=== PATIENT | female | born 1945 | race Caucasian/White ===

== ENCOUNTER → 2016-12-01 | Outpatient (CLI) | payer MEDICARE ==
[~2016-12-01] MED LIST: ALPR.25T; ALPR0.254 PO; AMLO10TA PO; ARIP2TAB3 PO; ASPI-875 PO; ATOR10TA66 PO; BUTA-234; CYCL10TA9 PO; DARI15TA4; DULO60CA6 PO; FNT25TD TD; GABAPENTIN; HYDR-3720 PO; HYDR1TAB PO; HYDR25TA4 PO; LEVO100T PO; MTP50T; NEBI5TAB8 PO; NF-ESOM40C PO; NFNEB10T PO; OMEG1CAP51 PO; PROP1TAB77; SYNTHROID; TICA90TA PO; TRAZ-144 PO
--- NOTE | 2016-12-05 13:55 | Diagnostic Imaging Report ---
Bilateral screening mammogram. The current study was also evaluated with a Computer Aided Detection (CAD) system. INDICATION: Screening. No current complaints stated on the questionnaire. COMPARISON: 10/30/15 FINDINGS: The breasts are composed of scattered fibroglandular densities. There are occasional benign-appearing calcifications. Allowing for technique and positional differences, no suspicious change is seen. IMPRESSION: No significant change. ACR BI-RADS Category 2: Benign findings. Result letter will be mailed to the patient. Note: At least 10% of breast cancer is not imaged by mammography. Dictated by: Dictated on workstation # [id number]
== END ==
LOC: RAD 12:52
PROVIDERS: ATTEND Nurse Practitioner Family
DX: Z12.31 Encounter for screening mammogram for malignant neoplasm of breast (principal)
CPT/HCPCS: 77067

== ENCOUNTER → 2017-02-20 | Outpatient (CLI) | payer MEDICARE ==
[~2017-02-20] VITALS: Ht 154.9 cm; Wt 72.6 kg
[~2017-02-20] MED LIST changes: +NS IV 1000 ML 1,000 ML IV NR; +NS IV 1000 ML 1,000 ML ONE; +ONDANSETRON 4 MG/2 ML (SDV) Z0FRAN IV PRN; +ONDANSETRON 4 MG/2 ML (SDV) Z0FRAN ONE; +metroNIDAZOLE 500 MG/100 ML IVPB (PRE-MIX) IV NR; +metroNIDAZOLE 500MG/100ML IVPB 100 ML ONE
[2017-02-20 13:08] LABS: MEAN PLATELET VOLUME 11.2 FL (7.4-10.4); RED BLOOD COUNT 4.99 10^6/uL (4.35-5.85); RED CELL DISTRIBUTION WIDTH 13.1 % (10.0-14.5); WHITE BLOOD COUNT 6.9 10^3/uL (4.3-11.0)
[2017-02-20 13:25] LABS: ALANINE AMINOTRANSFERASE 70 U/L (0-55); ALBUMIN 3.9 GM/DL (3.2-4.5); ANION GAP 7 MMOL/L (5-14); ASPARTATE AMINO TRANSFERASE 57 U/L (5-34); BILIRUBIN,TOTAL 0.4 MG/DL (0.1-1.0); BLOOD UREA NITROGEN 22 MG/DL (7-18); BUN/CREATININE RATIO 29 (0-20); CALCIUM 9.6 MG/DL (8.5-10.1); CARBON DIOXIDE 27 MMOL/L (21-32); CHLORIDE 108 MMOL/L (98-107); CREATININE SERUM 0.77 MG/DL (0.60-1.30); GFR ESTIMATED > 60; GLUCOSE 85 MG/DL (70-105); HEMOLYSIS 11 (-100-29); ICTERUS 0.5 (-100-1.9); LIPEMIA 2 (-100-49); POTASSIUM 3.5 MMOL/L (3.6-5.0); SODIUM 142 MMOL/L (135-145); TOTAL PROTEIN 7.3 GM/DL (6.4-8.2)
[2017-02-20 13:37] VITALS: BP 135/87
[2017-02-20 15:13] VITALS: BP 135/87
== END ==
LOC: SDC 12:32
PROVIDERS: ATTEND Nurse Practitioner Family
DX: K57.92 Diverticulitis of intestine, part unspecified, without perforation or abscess without bleeding (principal)
CPT/HCPCS: 36415; 80053; 85027; 96360; 96365; 96374

== ENCOUNTER → 2017-06-16 | Outpatient (CLI) | payer MEDICARE ==
[~2017-06-16] MED LIST changes: -NS IV 1000 ML 1,000 ML IV NR; -NS IV 1000 ML 1,000 ML ONE; -ONDANSETRON 4 MG/2 ML (SDV) Z0FRAN IV PRN; -ONDANSETRON 4 MG/2 ML (SDV) Z0FRAN ONE; -metroNIDAZOLE 500 MG/100 ML IVPB (PRE-MIX) IV NR; -metroNIDAZOLE 500MG/100ML IVPB 100 ML ONE
[2017-06-16 09:35] LABS: ALANINE AMINOTRANSFERASE 31 U/L (0-55); ALBUMIN 3.7 GM/DL (3.2-4.5); ANION GAP 9 MMOL/L (5-14); ASPARTATE AMINO TRANSFERASE 31 U/L (5-34); BILIRUBIN,TOTAL 0.6 MG/DL (0.1-1.0); BLOOD UREA NITROGEN 19 MG/DL (7-18); BUN/CREATININE RATIO 23; CALCIUM 9.6 MG/DL (8.5-10.1); CARBON DIOXIDE 25 MMOL/L (21-32); CHLORIDE 108 MMOL/L (98-107); CREATININE SERUM 0.81 MG/DL (0.60-1.30); GFR ESTIMATED > 60; GLUCOSE 95 MG/DL (70-105); POTASSIUM 3.8 MMOL/L (3.6-5.0); SODIUM 142 MMOL/L (135-145); TOTAL PROTEIN 6.8 GM/DL (6.4-8.2)
== END ==
LOC: LAB 08:45
PROVIDERS: ATTEND Physician Assistant
DX: I65.29 Occlusion and stenosis of unspecified carotid artery (principal); I25.10 Atherosclerotic heart disease of native coronary artery without angina pectoris; I10 Essential (primary) hypertension; E78.2 Mixed hyperlipidemia
CPT/HCPCS: 36415; 80053

== ENCOUNTER → 2017-06-28 | Outpatient (CLI) | payer MEDICARE, OTHER ==
[~2017-06-28] MED LIST changes: +CATHETER FLUSH 10 ML SYR IV PRN; +REGADENOSON 0.4 MG/5 ML SYR (LEXISCAN) IV ONE
[2017-06-28 09:16] VITALS: BP 131/89
--- NOTE | 2017-06-29 13:52 | STRESS TEST ---
DATE OF SERVICE: 06/28/2017 LEXISCAN MYOVIEW STRESS TEST REPORT Baseline heart rate is 61. Baseline blood pressure is 130/89. Baseline EKG sinus rhythm with no ischemic changes. In summary, the patient received 10.76 mCi of technetium-99 Myoview and the resting images were obtained, then the patient received 0.4 mg of Lexiscan followed by 28.2 mCi of technetium-99 Myoview. Throughout the test, there were no EKG changes. The resting and stress images were reviewed and compared in the short axis, horizontal long axis, and vertical long axis views. Review of the images showed breast attenuation with typical female pattern. No significant ischemia or infarction on SPECT images. SSS is 0. TID value is 1.08. On the gated images, the left ventricle appeared to be normal size with normal contractility, calculated ejection fraction 66%. CONCLUSION: 1. The patient tolerated Lexiscan scan well. 2. Breast attenuation with typical female pattern. No significant ischemia or infarction on SPECT images. 3. Normal left ventricular size with normal contractility, calculated ejection fraction 66%. Job ID: [id number] DocumentID: [id number] Dictated Date: 06/28/2017 14:55:24 Analysis Intern Date: 06/28/2017 16:09:18 Dictated By: SANDEEP BAI MD
== END ==
LOC: CARD 07:33
PROVIDERS: ATTEND Physician Assistant
DX: I25.10 Atherosclerotic heart disease of native coronary artery without angina pectoris (principal); I10 Essential (primary) hypertension; E78.2 Mixed hyperlipidemia; Z82.49 Family history of ischemic heart disease and other diseases of the circulatory system
CPT/HCPCS: 78452; 93017

== ENCOUNTER → 2017-07-24 | Outpatient (CLI) | payer MEDICARE ==
[~2017-07-24] MED LIST changes: -CATHETER FLUSH 10 ML SYR IV PRN; -REGADENOSON 0.4 MG/5 ML SYR (LEXISCAN) IV ONE
--- NOTE | 2017-07-24 11:58 | Diagnostic Imaging Report ---
PROCEDURE: MR imaging cervical spine without contrast. TECHNIQUE: Multiplanar, multisequence MR imaging of the cervical spine was performed without contrast. INDICATION: Neck pain. FINDINGS: The alignment of the posterior spinal line is satisfactory. The vertebral body heights are preserved. There is a moderate disc height loss at C6-C7 level and mild disc height loss at C5-C6. There is disc desiccation at all levels. The foramen magnum and upper cervical canal are widely patent. The spinal cord is normal in caliber and in signal. There is no significant marrow signal abnormality. C2-C3: No disc herniation or spinal canal stenosis. There is facet hypertrophy more prominent on the left side with associated mild left foraminal stenosis. The right foramen is patent. C3-C4: There is a spur-disc complex asymmetric to the right side with no significant spinal canal stenosis. The foramina demonstrate bilateral stenosis lnlobqqe-fi-qykgyf on the right and moderate on the left. C4-C5: There is a mild spur-disc complex with no spinal canal stenosis. Prominent facet hypertrophy on the left side is seen with mild foraminal stenosis on the left. No foraminal stenosis on the right side. C5-C6: There is moderate spinal canal stenosis reducing the AP dimension of the central canal to 7.5 mm. No cord compression. The foramina demonstrate bilateral stenosis zppgloqp-an-iicbio on the right side and moderate on the left. C6-C7: There is a disc-spur complex and prominent posterior ligamentous hypertrophy. This is associated with moderate spinal canal stenosis reducing the AP dimension of the canal to 7.5 mm without significant cord compression. The foramina demonstrate bilateral kwniguel-ic-ymcmty stenosis. C7-T1: There is no disc herniation. No spinal canal or foraminal stenosis. IMPRESSION: There is moderate spinal canal stenosis at the C5-C6 and C6-C7 levels. Multilevel foraminal stenosis is also seen. Dictated by: Dictated on workstation # [id number]
== END ==
LOC: RAD 08:41
PROVIDERS: ATTEND Family Medicine
DX: M48.02 Spinal stenosis, cervical region (principal); M99.71 Connective tissue and disc stenosis of intervertebral foramina of cervical region
CPT/HCPCS: 72141

== ENCOUNTER → 2018-06-08 | Outpatient (CLI) | payer MEDICARE ==
--- NOTE | 2018-06-08 14:56 | Diagnostic Imaging Report ---
EXAMINATION: Magnetic resonance imaging of the left ankle without contrast. DATE: June 08, 2018. COMPARISON: None. HISTORY: 72-year-old female, left medial ankle pain for 5 weeks. TECHNIQUE: Magnetic Resonance Imaging sequences were performed of the ankle without contrast. FINDINGS: TENDONS AND LIGAMENTS: The Achilles tendon is unremarkable. There is a tear of the tibialis posterior from its distal attachment with retraction of the tendon proximally by 10 mm. There is fluid in the tibialis posterior tendon sheath, compatible with tenosynovitis. There is also tenosynovitis of the flexor digitorum longus. The flexor digitorum longus and flexor hallucis longus tendons are without identified tear. The peroneal tendons (peroneus longus and peroneus brevis) are intact. The anterior extensor tendons (tibialis anterior, extensor hallucis longus, and extensor digitorum longus tendons) are intact. The anterior syndesmotic ligament is intact. There is thickening of the posterior syndesmotic ligament which may relate to prior injury. The anterior talofibular, posterior talofibular, calcaneofibular, and deltoid ligaments are intact. The plantar fascia is intact. There is loss of normal fat attenuation within the sinus tarsi. The sinus tarsi ligaments are irregular in appearance. 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 JOINTS: There is a trace tibiotalar joint effusion and a trace posterior subtalar joint effusion. There is a moderate anterior subtalar joint effusion. There are mild degenerative changes at the talonavicular articulation. There are mild to moderate midfoot degenerative changes. BONE: There is an os navicularis without edema in the accessory ossicle to suggest abnormal motion. There is no acute fracture, bone contusion, or evidence of osteonecrosis. The talar dome is intact. BURSAE AND SOFT TISSUES: There is soft tissue swelling medially. IMPRESSION: 1. Complete tear of the distal tibialis posterior tendon with retraction of the tendon proximally by 10 mm. Tenosynovitis of the tibialis posterior and flexor digitorum longus. 2. Loss of normal fat attenuation within the sinus tarsi with an irregular appearance of the sinus tarsi ligaments. Findings are compatible with subtalar sprain injury and/or sinus tarsi syndrome. 3. Thickening of the posterior syndesmotic ligament which may relate to sequela of remote prior injury. Intact anterior syndesmotic ligament. Intact low lateral ankle ligament complex and deltoid ligament complex. 4. Moderate anterior subtalar joint effusion with mild degenerative changes at the talonavicular articulation. 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 5. No acute fracture or bone contusion. Dictated by: Dictated on workstation # [id number]
== END ==
LOC: RAD 12:52
PROVIDERS: ATTEND Orthopaedic Surgery
DX: S86.812A Strain of other muscle(s) and tendon(s) at lower leg level, left leg, initial encounter (principal); M65.862 Other synovitis and tenosynovitis, left lower leg; M24.272 Disorder of ligament, left ankle; M19.072 Primary osteoarthritis, left ankle and foot; M76.822 Posterior tibial tendinitis, left leg
CPT/HCPCS: 73721

== ENCOUNTER → 2018-12-03 | Outpatient (CLI) | payer MEDICARE | LOC: CARD 09:27 | PROVIDERS: ATTEND Internal Medicine Cardiovascular Disease | DX: I25.10 Atherosclerotic heart disease of native coronary artery without angina pectoris (principal); I10 Essential (primary) hypertension; E78.5 Hyperlipidemia, unspecified; R06.02 Shortness of breath; I08.3 Combined rheumatic disorders of mitral, aortic and tricuspid valves | CPT/HCPCS: 93306 ==

== ENCOUNTER 2019-02-22 11:30 | Outpatient (CLI) | payer MEDICARE ==
[~2019-02-22] VITALS: Ht 154.9 cm; Wt 72.1 kg
[2019-02-22] MEDS ORDERED: HYDR-3820 PO (12:17)
[2019-02-22] MEDS ORDERED: TRAZ-222 PO (12:17)
[2019-02-22] MEDS ORDERED: ASPI-999 PO (12:17)
[2019-02-22] MEDS ORDERED: LEVO112T55 PO (12:17)
[2019-02-22] MEDS ORDERED: ESOM40CA52 PO (12:17)
[2019-02-22] MEDS ORDERED: LOSA100T57 PO (12:17)
[2019-02-22] MEDS ORDERED: HYDR25TA4 PO (12:17)
[2019-02-22] MEDS ORDERED: PIRO20CA2 PO (12:17)
[2019-02-22] MEDS ORDERED: ALPR0.254 PO (12:17)
[2019-02-22] MEDS ORDERED: ATOR10TA66 PO (12:17)
[2019-02-22] MEDS ORDERED: NEBI20TA2 PO (12:17)
== END 2019-02-22 12:18 | disposition home or self-care (01) ==
LOC: PREOP 11:30
PROVIDERS: ATTEND Internal Medicine
DX: Z01.818 Encounter for other preprocedural examination (principal)

== ENCOUNTER 2019-03-08 07:58 | Day surgery (SDC) | payer MEDICARE ==
--- NOTE | 2019-02-12 06:50 | HISTORY AND PHYSICAL ---
DATE OF SERVICE: COLONOSCOPY HISTORY AND PHYSICAL HISTORY OF PRESENT ILLNESS: The patient is a 73-year-old white female referred for screening colonoscopy by Dr. Melba Goldman. She finally consented to her first colonoscopy and she had a lsopgl-jr-tly, who was recently diagnosed with colon cancer. She does have a history of irritable bowel syndrome, but has noted increased belching and vacillates between diarrhea and constipation. She has noted no bright red blood per rectum or melena and denies any change in weight. PAST MEDICAL HISTORY: Significant for gastroesophageal reflux without evidence for erosive esophagitis. I had done an EGD on her in 2009 that did not reveal evidence for erosive esophagitis. She has a history for hypertension, depression and degenerative joint disease as well as seasonal allergies. She has a history of hyperlipidemia, was having some symptoms questionably associated with Lipitor. They were not myopathic in etiology and she has been off the medicine for 2 weeks, but maybe going back on it as most of these were GI symptoms and they have not changed much off the medication. FAMILY HISTORY: She is not aware of any direct relatives that had a history of colon cancer. She has a brother, who has history of cardiovascular disease and two brothers, who have also had cardiac base surgery likely for vascular disease. Father had history of cardiovascular disease in his 70s, expiring. She has one son with a history of Crohn's disease with no other history of inflammatory bowel disease. PAST SURGICAL HISTORY: She had x3. She has had back surgery for spinal stenosis x2, lumbar. She does have a history of coronary artery disease, had cardiac stents performed in 10/2013. She had a ganglion cyst removed from her right wrist. She has had rotator cuff repair x2 and arthroscopic knee surgery followed by a right total knee replacement around 2011. SOCIAL HISTORY: She is , had three sons, one of complications of Crohn's disease several years ago. She is a nonsmoker with no reported significant alcohol intake. REVIEW OF SYSTEMS: GASTROINTESTINAL: As stated above. PULMONARY: She denies dyspnea on exertion on rest, cough or chest pain. CARDIOVASCULAR: The patient has had no angina since cardiac stent placement a little over 5 years ago. Reporting no other cardiac surgeries. She has had no syncope or presyncope and denies palpitations. She has had no angina. PHYSICAL EXAMINATION: GENERAL: Reveals a somewhat depressed appearing white female. VITAL SIGNS: Weight was 159, blood pressure 130/84. HEENT: Unremarkable. She has a Mallampati class 3 pharyngeal configuration. CHEST: Clear to auscultation. CARDIOVASCULAR: Reveals regular rate and rhythm without murmur, S3 or S4. ABDOMEN: Nondistended, soft. There is left lower quadrant discomfort without rebound or guarding as well as left upper and mild epigastric discomfort, but no mass or organomegaly are noted. Bowel sounds are positive. EXTREMITIES: Reveal no cyanosis, clubbing or edema. ASSESSMENT AND PLAN: The patient is set up for screening colonoscopy. She is likely to be hypersensitive to air insufflation and colonic manipulation with symptoms compatible with IBS and is concerned about her comfort level, so we will have Anesthesiology use Diprivan, which was discussed with the patient. Medical record was reviewed. Forty minutes care time spent. The patient is set up for colonoscopy on 02/22/2019. Prep instructions were discussed. Job ID: [id number] DocumentID: [id number] Dictated Date: 02/08/2019 08:43:57 Casework Specialist Date: 02/08/2019 09:59:56 Dictated By: FRANCINE LIN MD
[~2019-03-08] VITALS: Ht 154.9 cm; Wt 72.1 kg
[~2019-03-08 07:58] MED LIST changes: +ASPI-999 PO; +ESOM40CA52 PO; +HYDR-3820 PO; +LEVO112T55 PO; +LOSA100T57 PO; +NEBI20TA2 PO; +PIRO20CA2 PO; +TRAZ-222 PO
[2019-03-08] MEDS ORDERED: LACTATED RINGERS 1,000 ML IV ONE (08:02)
[2019-03-08] MEDS ORDERED: LACTATED RINGERS 1,000 ML IV STA (08:10)
[2019-03-08] MEDS ORDERED: LIDOCAINE JELLY 2% 6 ML SYRINGE MM PRN (08:15)
[2019-03-08 08:18] VITALS: BP 140/97
[2019-03-08] MEDS ORDERED: LIDOCAINE JELLY 2% 6 ML SYRINGE ONE (08:53)
--- OUTSIDE RECORDS SUMMARY | 2019-03-08 09:02 | XMS REPORT | CCD ---
Author Author [facility] Address [address] [place] [address] Phone Care Team Providers Care Motor Vehicle License Clerk Name Role Phone PP Unavailable CCM Unavailable Summary Purpose Interface Exchange Insurance Providers Payer name Policy type / Coverage type Covered alliance party ID Effective Begin Date Effective End Date [employer] Medicare Part B [id number] Unknown Family history Son Diagnosis Age At Onset Crohn's disease Unknown Brother Diagnosis Age At Onset Cardiovascular disease Unknown Mother Diagnosis Age At Onset Hypertension Unknown Father Diagnosis Age At Onset Cardiovascular disease Unknown Social History Social History Element Codes Description Effective Dates Marital status Unknown 04/22/2011 Number of children Unknown 3 1 son -Crohns 04/22/[address]: 247913889 Nonsmoker 04/22/2011 Allergies, Adverse Reactions, Alerts Substance Reaction Codes Entered Date Inactivated Date Status * NO KNOWN FOOD ALLERGIES Unknown 05/19/2011 No Inactive Date Active * NO KNOWN DRUG ALLERGIES Unknown 04/22/2011 No Inactive Date Active Past Medical History Illness Codes Condition Status Onset Date Resolved Date Cellulitis of left upper limb ICD-9: 682.3 ICD-10: L03.114 Active 02/20/2019 Unknown 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 Active 01/29/2019 Unknown Essential (primary) hypertension ICD-9: 401.1 ICD-10: I10 Active 07/16/2018 Unknown Hypothyroidism, unspecified ICD-9: 244.9 ICD-10: E03.9 Active 11/07/2016 Unknown Mixed hyperlipidemia ICD- 9: 272.4 ICD-10: E78.2 Active 10/30/2018 Unknown Other allergic rhinitis ICD-9: 477.8 ICD-10: J30.89 Active 08/14/2016 Unknown Other mucopurulent conjunctivitis, bilateral ICD-9: 372.03 ICD-10: H10.023 Active 10/08/2018 Unknown Generalized anxiety disorder ICD-9: 300.00 ICD-10: F41.1 Active 07/16/2018 Unknown Acute recurrent maxillary sinusitis ICD-9: 461.0 ICD-10: J01.01 Active 06/06/2016 Unknown Frequency of micturition ICD-9: 788.41 ICD-10: R35.0 Active 07/10/2018 Unknown Low back pain ICD-9: 724.2 ICD-10: M54.5 Active 06/06/2016 Unknown Other acute sinusitis ICD- 9: 461.8 ICD-10: J01.80 Active 08/14/2016 Unknown Laceration without foreign body, right lower leg, subsequent encounter ICD-9: V58.89 ICD-10: S81.811D Active 02/08/2018 Unknown Laceration without foreign body, left lower leg, subsequent encounter ICD-9: V58.89 ICD-10: S81.812D Active 02/08/2018 Unknown Cellulitis of left lower limb ICD-9: 682.6 ICD-10: L03.116 Active 02/07/2018 Unknown Cellulitis of right lower limb ICD-9: 682.6 ICD-10: L03.115 Active 02/07/2018 Unknown Laceration without foreign body, left lower leg, initial encounter ICD-9: 891.0 ICD-10: S81.812A Active 02/07/2018 Unknown Laceration without foreign body, right lower leg, initial encounter ICD-9: 891.0 ICD-10: S81.811A Active 02/07/2018 Unknown Obstructive sleep apnea (adult) (pediatric) ICD-9: 780.57 ICD-10: G47.33 Active 01/19/2018 Unknown Primary generalized (osteo)arthritis ICD-9: 715.09 ICD-10: M15.0 Active 01/19/2018 Unknown Encounter for general adult medical examination with abnormal findings ICD-9: V70.0 ICD-10: Z00.01 Active 11/07/2016 Unknown Diarrhea, unspecified ICD- 9: 787.91 ICD-10: R19.7 Active 06/27/2017 Unknown Dysuria ICD-9: 788.1 ICD-10: R30.0 Active 05/04/2016 Unknown Generalized abdominal pain ICD-9: 789.07 ICD-10: R10.84 Active 09/12/2017 Unknown Acute laryngopharyngitis ICD-9: 465.0 ICD-10: J06.0 Active 08/14/2016 Unknown Cough ICD-9: 786.2 ICD-10: R05 Active 12/06/2015 Unknown Wheezing ICD-9: 786.07 ICD-10: R06.2 Active 07/25/2017 Unknown Cervicalgia ICD-9: 723.1 ICD-10: M54.2 Active 06/05/2014 Unknown Chronic maxillary sinusitis ICD-9: 473.0 ICD-10: J32.0 Active 05/08/2017 Unknown Gastro-esophageal reflux disease without esophagitis ICD-9: 530.81 ICD-10: K21.9 Active 05/08/2017 Unknown Allergic rhinitis due to pollen ICD-9: 477.9 ICD-10: J30.1 Active 04/20/2017 Unknown Actinic keratosis ICD-9: 702.0 ICD-10: L57.0 Active 12/05/2016 Unknown Epigastric pain ICD-9: 536.8 ICD-10: R10.13 Active 02/06/2017 Unknown Generalized anxiety disorder ICD-9: 300.02 ICD-10: F41.1 Active 03/13/2016 Unknown Left lower quadrant pain ICD-9: 789.04 ICD-10: R10.32 Active 02/20/2017 Unknown Left upper quadrant pain ICD-9: 789.02 ICD-10: R10.12 Active 02/06/2017 Unknown Major depressive disorder, recurrent, moderate ICD-9: 296.32 ICD-10: F33.1 Active 12/05/2016 Unknown Essential (primary) hypertension ICD-9: 401.9 ICD-10: I10 Active 03/15/2016 Unknown Headache ICD-9: 784.0 ICD-10: R51 Active 03/13/2016 Unknown Laceration without foreign body, left lower leg, initial encounter ICD-9: 894.0 ICD-10: S81.812A Active 02/21/2016 Unknown Allergic rhinitis due to pollen ICD-9: 477.0 ICD-10: J30.1 Active 12/06/2015 Unknown Generalized intra-abdominal and pelvic swelling, mass and lump ICD-9: 789.37 ICD-10: R19.07 Active 11/23/2015 Unknown Other migraine, intractable, without status migrainosus ICD-9: 346.81 ICD-10: G43.819 Active 08/26/2015 Unknown Candidal stomatitis ICD- 9: 112.0 ICD-10: B37.0 Active 08/09/2015 Unknown Superficial foreign body of left hand, initial encounter ICD-9: 914.6 ICD-10: S60.552A Active 07/27/2015 Unknown Abnormal levels of other serum enzymes ICD-9: 790.5 ICD-10: R74.8 Active 06/10/2015 Unknown Tinea cruris ICD-9: 110.3 ICD-10: B35.6 Active 06/10/2015 Unknown Anxiety ICD-9: 300.00 Active 03/18/2015 Unknown ESSENTIAL HYPERTENSION ICD-9: 401.9 Active 03/19/2015 Unknown Hypothyroid ICD-9: 244.9 Active 03/19/2015 Unknown Sleep apnea ICD-9: 780.57 Active 09/10/2012 Unknown ACUTE SINUSITIS ICD-9: 461.9 Active 01/07/2015 Unknown OTALGIA ICD-9: 388.70 Active 01/06/2015 Unknown Conjunctivitis ICD-9: 372.30 Active 09/23/2014 Unknown Noninfected skin tear of leg ICD-9: 891.0 Active 08/05/2014 Unknown Other screening mammogram ICD-9: V76.12 Active 07/17/2014 Unknown Chronic maxillary sinusitis ICD-9: 473.0 Active 06/23/2014 Unknown Neck pain ICD-9: 723.1 Active 06/05/2014 Unknown Spasm of muscle ICD-9: 728.85 Active 06/05/2014 Unknown Abrasion of right leg ICD- 9: 916.0 Active 04/03/2014 Unknown ALLERGIC RHINITIS ICD-9: 477.9 Active 04/03/2014 Unknown Headache ICD-9: 784.0 Active 04/03/2014 Unknown Exposure to scabies ICD- 9: V01.89 Active 03/07/2014 Unknown Tinea corporis ICD-9: 110.5 Active 03/07/2014 Unknown Dysuria ICD-9: 788.1 Active 02/11/2014 Unknown Lumbago ICD-9: 724.2 Active 11/21/2013 Unknown History of urinary tract infection ICD-9: V13.02 Active 10/15/2013 Unknown Paronychia ICD-9: 681.9 Active 09/24/2013 Unknown Cellulitis ICD-9: 682.9 Active 09/19/2013 Unknown Bronchitis ICD-9: 490 Active 07/10/2013 Unknown Insomnia ICD-9: 780.52 Active 07/10/2013 Unknown Osteoarthritis Unknown Active 12/03/2012 Unknown Hip pain ICD-9: 719.45 Active 12/03/2012 Unknown Knee pain, bilateral ICD- 9: 719.46 Active 12/03/2012 Unknown Osteoarthritis ICD-9: 715.90 Active 12/03/2012 Unknown Acute maxillary sinusitis ICD-9: 461.0 Active 09/24/2012 Unknown Thrush ICD-9: 112.0 Active 09/10/2012 Unknown JOINT PAIN-MULT JOINTS ICD-9: 719.49 Active 08/08/2012 Unknown Elevated glucose ICD-9: 790.29 Active 02/16/2012 Unknown EDEMA ICD-9: 782.3 Active 02/15/2012 Unknown Urinary frequency ICD-9: 788.41 Active 02/15/2012 Unknown Urinary tract infection ICD-9: 599.0 Active 02/15/2012 Unknown Abdominal pain ICD-9: 789.00 Active 11/10/2011 Unknown Nausea ICD-9: 787.02 Active 11/10/2011 Unknown Hyperlipidemia Unknown Active 11/08/2011 Unknown Hypothryroidism Unknown Active 11/08/2011 Unknown ENCNTR LONG-RX USE NEC ICD-9: V58.69 Active 11/08/2011 Unknown HYPERLIPIDEMIA ICD-9: 272.4 Active 11/08/2011 Unknown Depression Unknown Active 08/01/2011 Unknown DIARRHEA ICD-9: 787.91 Active 08/01/2011 Unknown Irritable bowel disease ICD-9: 564.1 Active 08/01/2011 Unknown Hypertension Unknown Active 05/23/2011 Unknown VACCIN FOR INFLUENZA ICD- 9: V04.81 Active 05/23/2011 Unknown Cough ICD-9: 786.2 Active 05/03/2011 Unknown Fatigue ICD-9: 780.79 Active 04/25/2011 Unknown Arthritis Unknown Active 04/22/2011 Unknown Bursitis Unknown Active 04/22/2011 Unknown Migraine Unknown Active 04/22/2011 Unknown Ulcers Unknown Active 04/22/2011 Unknown Depression ICD-9: 311 Active 04/22/2011 Unknown Diaphragmatic hernia ICD- 9: 553.3 Active 04/22/2011 Unknown Disturbance of sleep ICD- 9: 780.50 Active 04/22/2011 Unknown ESOPHAGEAL REFLUX ICD-9: 530.81 Active 04/22/2011 Unknown Essential hypertriglyceridemia ICD-9: 272.1 Active 04/22/2011 Unknown GENERALIZED ANXIETY DISEASE ICD-9: 300.02 Active 04/22/2011 Unknown Generalized OA ICD-9: 715.09 Active 04/22/2011 Unknown Problems Condition Codes Effective Dates Condition Status Cellulitis of left upper limb ICD-9: 682.3 ICD-10: L03.114 02/20/2019 Active 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 01/29/2019 Active Essential (primary) hypertension ICD-9: 401.1 ICD-10: I10 07/16/2018 Active Hypothyroidism, unspecified ICD-9: 244.9 ICD-10: E03.9 11/07/2016 Active Mixed hyperlipidemia ICD- 9: 272.4 ICD-10: E78.2 10/30/2018 Active Other allergic rhinitis ICD-9: 477.8 ICD-10: J30.89 08/14/2016 Active Other mucopurulent conjunctivitis, bilateral ICD-9: 372.03 ICD-10: H10.023 10/08/2018 Active Generalized anxiety disorder ICD-9: 300.00 ICD-10: F41.1 07/16/2018 Active Acute recurrent maxillary sinusitis ICD-9: 461.0 ICD-10: J01.01 06/06/2016 Active Frequency of micturition ICD-9: 788.41 ICD-10: R35.0 07/10/2018 Active Low back pain ICD-9: 724.2 ICD-10: M54.5 06/06/2016 Active Other acute sinusitis ICD- 9: 461.8 ICD-10: J01.80 08/14/2016 Active Laceration without foreign body, right lower leg, subsequent encounter ICD-9: V58.89 ICD-10: S81.811D 02/08/2018 Active Laceration without foreign body, left lower leg, subsequent encounter ICD-9: V58.89 ICD-10: S81.812D 02/08/2018 Active Cellulitis of left lower limb ICD-9: 682.6 ICD-10: L03.116 02/07/2018 Active Cellulitis of right lower limb ICD-9: 682.6 ICD-10: L03.115 02/07/2018 Active Laceration without foreign body, left lower leg, initial encounter ICD-9: 891.0 ICD-10: S81.812A 02/07/2018 Active Laceration without foreign body, right lower leg, initial encounter ICD-9: 891.0 ICD-10: S81.811A 02/07/2018 Active Obstructive sleep apnea (adult) (pediatric) ICD-9: 780.57 ICD-10: G47.33 01/19/2018 Active Primary generalized (osteo)arthritis ICD-9: 715.09 ICD-10: M15.0 01/19/2018 Active Encounter for general adult medical examination with abnormal findings ICD-9: V70.0 ICD-10: Z00.01 11/07/2016 Active Diarrhea, unspecified ICD- 9: 787.91 ICD-10: R19.7 06/27/2017 Active Dysuria ICD-9: 788.1 ICD-10: R30.0 05/04/2016 Active Generalized abdominal pain ICD-9: 789.07 ICD-10: R10.84 09/12/2017 Active Acute laryngopharyngitis ICD-9: 465.0 ICD-10: J06.0 08/14/2016 Active Cough ICD-9: 786.2 ICD-10: R05 12/06/2015 Active Wheezing ICD-9: 786.07 ICD-10: R06.2 07/25/2017 Active Cervicalgia ICD-9: 723.1 ICD-10: M54.2 06/05/2014 Active Chronic maxillary sinusitis ICD-9: 473.0 ICD-10: J32.0 05/08/2017 Active Gastro-esophageal reflux disease without esophagitis ICD-9: 530.81 ICD-10: K21.9 05/08/2017 Active Allergic rhinitis due to pollen ICD-9: 477.9 ICD-10: J30.1 04/20/2017 Active Actinic keratosis ICD-9: 702.0 ICD-10: L57.0 12/05/2016 Active Epigastric pain ICD-9: 536.8 ICD-10: R10.13 02/06/2017 Active Generalized anxiety disorder ICD-9: 300.02 ICD-10: F41.1 03/13/2016 Active Left lower quadrant pain ICD-9: 789.04 ICD-10: R10.32 02/20/2017 Active Left upper quadrant pain ICD-9: 789.02 ICD-10: R10.12 02/06/2017 Active Major depressive disorder, recurrent, moderate ICD-9: 296.32 ICD-10: F33.1 12/05/2016 Active Essential (primary) hypertension ICD-9: 401.9 ICD-10: I10 03/15/2016 Active Headache ICD-9: 784.0 ICD-10: R51 03/13/2016 Active Laceration without foreign body, left lower leg, initial encounter ICD-9: 894.0 ICD-10: S81.812A 02/21/2016 Active Allergic rhinitis due to pollen ICD-9: 477.0 ICD-10: J30.1 12/06/2015 Active Generalized intra-abdominal and pelvic swelling, mass and lump ICD-9: 789.37 ICD-10: R19.07 11/23/2015 Active Other migraine, intractable, without status migrainosus ICD-9: 346.81 ICD-10: G43.819 08/26/2015 Active Candidal stomatitis ICD- 9: 112.0 ICD-10: B37.0 08/09/2015 Active Superficial foreign body of left hand, initial encounter ICD-9: 914.6 ICD-10: S60.552A 07/27/2015 Active Abnormal levels of other serum enzymes ICD-9: 790.5 ICD-10: R74.8 06/10/2015 Active Tinea cruris ICD-9: 110.3 ICD-10: B35.6 06/10/2015 Active Anxiety ICD-9: 300.00 03/18/2015 Active ESSENTIAL HYPERTENSION ICD-9: 401.9 03/19/2015 Active Hypothyroid ICD-9: 244.9 03/19/2015 Active Sleep apnea ICD-9: 780.57 09/10/2012 Active ACUTE SINUSITIS ICD-9: 461.9 01/07/2015 Active OTALGIA ICD-9: 388.70 01/06/2015 Active Conjunctivitis ICD-9: 372.30 09/23/2014 Active Noninfected skin tear of leg ICD-9: 891.0 08/05/2014 Active Other screening mammogram ICD-9: V76.12 07/17/2014 Active Chronic maxillary sinusitis ICD-9: 473.0 06/23/2014 Active Neck pain ICD-9: 723.1 06/05/2014 Active Spasm of muscle ICD-9: 728.85 06/05/2014 Active Abrasion of right leg ICD- 9: 916.0 04/03/2014 Active ALLERGIC RHINITIS ICD-9: 477.9 04/03/2014 Active Headache ICD-9: 784.0 04/03/2014 Active Exposure to scabies ICD- 9: V01.89 03/07/2014 Active Tinea corporis ICD-9: 110.5 03/07/2014 Active Dysuria ICD-9: 788.1 02/11/2014 Active Lumbago ICD-9: 724.2 11/21/2013 Active History of urinary tract infection ICD-9: V13.02 10/15/2013 Active Paronychia ICD-9: 681.9 09/24/2013 Active Cellulitis ICD-9: 682.9 09/19/2013 Active Bronchitis ICD-9: 490 07/10/2013 Active Insomnia ICD-9: 780.52 07/10/2013 Active Osteoarthritis Unknown 12/03/2012 Active Hip pain ICD-9: 719.45 12/03/2012 Active Knee pain, bilateral ICD- 9: 719.46 12/03/2012 Active Osteoarthritis ICD-9: 715.90 12/03/2012 Active Acute maxillary sinusitis ICD-9: 461.0 09/24/2012 Active Thrush ICD-9: 112.0 09/10/2012 Active JOINT PAIN-MULT JOINTS ICD-9: 719.49 08/08/2012 Active Elevated glucose ICD-9: 790.29 02/16/2012 Active EDEMA ICD-9: 782.3 02/15/2012 Active Urinary frequency ICD-9: 788.41 02/15/2012 Active Urinary tract infection ICD-9: 599.0 02/15/2012 Active Abdominal pain ICD-9: 789.00 11/10/2011 Active Nausea ICD-9: 787.02 11/10/2011 Active Hyperlipidemia Unknown 11/08/2011 Active Hypothryroidism Unknown 11/08/2011 Active ENCNTR LONG-RX USE NEC ICD-9: V58.69 11/08/2011 Active HYPERLIPIDEMIA ICD-9: 272.4 11/08/2011 Active Depression Unknown 08/01/2011 Active DIARRHEA ICD-9: 787.91 08/01/2011 Active Irritable bowel disease ICD-9: 564.1 08/01/2011 Active Hypertension Unknown 05/23/2011 Active VACCIN FOR INFLUENZA ICD- 9: V04.81 05/23/2011 Active Cough ICD-9: 786.2 05/03/2011 Active Fatigue ICD-9: 780.79 04/25/2011 Active Arthritis Unknown 04/22/2011 Active Bursitis Unknown 04/22/2011 Active Migraine Unknown 04/22/2011 Active Ulcers Unknown 04/22/2011 Active Depression ICD-9: 311 04/22/2011 Active Diaphragmatic hernia ICD- 9: 553.3 04/22/2011 Active Disturbance of sleep ICD- 9: 780.50 04/22/2011 Active ESOPHAGEAL REFLUX ICD-9: 530.81 04/22/2011 Active Essential hypertriglyceridemia ICD-9: 272.1 04/22/2011 Active GENERALIZED ANXIETY DISEASE ICD-9: 300.02 04/22/2011 Active Generalized OA ICD-9: 715.09 04/22/2011 Active Medications Medication Codes Instructions Start Date Stop Date Status Fill Instructions mupirocin 2 % topical ointment RxNorm: 674449 1 Application TOP BID 02/20/2019 No Stop Date Active doxycycline hyclate 100 mg capsule RxNorm: 5658820 1 Capsule(s) PO BID 02/20/2019 03/01/2019 Active ceftriaxone 1 gram solution for injection RxNorm: 0770007 Inj 02/20/2019 02/20/2019 Inactive piroxicam 20 mg capsule RxNorm: 816931 TAKE ONE CAPSULE BY MOUTH DAILY 02/01/2019 05/31/2019 Active hydrochlorothiazide 25 mg tablet RxNorm: 107910 Tablet(s) TAKE ONE TABLET BY MOUTH DAILY 01/29/2019 10/25/2019 Active hydrocodone 10 mg-acetaminophen 325 mg tablet RxNorm: 758768 Tablet(s) PO TAKE ONE TO TWO TABLETS BY MOUTH EVERY 6 HOURS NEEDED FOR PAIN 01/17/2019 01/31/2019 Inactive trazodone 50 mg tablet RxNorm: 691452 TAKE ONE AND ONE-HALF (1 1/2) TABLETS BY MOUTH AT BEDTIME. MAY INCREASE TO 2 TABLETS AT BEDTIME NEEDED 12/13/2018 04/01/2019 Active losartan 100 mg tablet RxNorm: 593436 1 Tablet(s) PO daily 11/13/2018 05/11/2019 Active hydrocodone 10 mg-acetaminophen 325 mg tablet RxNorm: 400870 Tablet(s) PO TAKE ONE TO TWO TABLETS BY MOUTH EVERY 6 HOURS NEEDED FOR PAIN 11/13/2018 11/27/2018 Inactive Synthroid 112 mcg tablet RxNorm: 955281 1 Tablet(s) PO daily 11/01/2018 04/29/2019 Active Brand name only! Dosage change! Synthroid 112 mcg tablet RxNorm: 477722 1 Tablet(s) PO daily 11/01/2018 10/31/2018 Inactive Brand name only! Dosage change! losartan 50 mg tablet RxNorm: 755386 1 Tablet(s) PO daily 10/30/2018 11/12/2018 Inactive Tamiflu 75 mg capsule RxNorm: 927993 1 Capsule(s) PO daily 10/30/2018 11/08/2018 Inactive Synthroid 100 mcg tablet RxNorm: 451072 1 Tablet(s) PO daily 10/30/2018 10/31/2018 Inactive Brand name only! Lexapro 20 mg tablet RxNorm: 511589 TAKE ONE AND ONE-HALF TABLET BY MOUTH DAILY 10/23/2018 10/17/2019 Active alprazolam 0.25 mg tablet RxNorm: 934852 1 Tablet(s) PO TID as needed 10/10/2018 01/07/2019 Inactive polymyxin B sulfate 10,000 unit-trimethoprim 1 mg/mL eye drops RxNorm: 599315 2 Drop(s) ophthalmic (eye) QID 10/08/2018 10/14/2018 Inactive hydrocodone 10 mg-acetaminophen 325 mg tablet RxNorm: 507163 Tablet(s) PO TAKE ONE TO TWO TABLETS BY MOUTH EVERY 6 HOURS NEEDED FOR PAIN 09/11/2018 09/25/2018 Inactive piroxicam 20 mg capsule RxNorm: 378476 TAKE ONE CAPSULE BY MOUTH DAILY 08/09/2018 01/05/2019 Inactive trazodone 50 mg tablet RxNorm: 186883 TAKE ONE AND ONE-HALF (1 1/2) TABLET BY MOUTH AT BEDTIME. MAY INCREASE TO 2 TABLETS AT BEDTIME NEEDED 08/02/2018 11/19/2018 Inactive Nexium 40 mg capsule,delayed release RxNorm: 810222 TAKE ONE CAPSULE BY MOUTH TWICE A DAY 07/23/2018 11/19/2018 Inactive Bystolic 5 mg tablet RxNorm: 092107 1 Tablet(s) PO daily to take with 10 mg daily to equal 15mg daily 07/17/2018 10/29/2018 Inactive alprazolam 0.25 mg tablet RxNorm: 288877 1 Tablet(s) PO TID as needed 07/16/2018 10/29/2018 Inactive hydrocodone 10 mg-acetaminophen 325 mg tablet RxNorm: 776088 Tablet(s) PO TAKE ONE TO TWO TABLETS BY MOUTH EVERY 6 HOURS NEEDED FOR PAIN 07/10/2018 07/24/2018 Inactive prednisone 20 mg tablet RxNorm: 327627 1 Tablet(s) PO BID 07/10/2018 07/14/2018 Inactive Phenergan with Codeine Syrup RxNorm: 5-10 Milliliter(s) PO Q6 PRN 06/28/2018 01/28/2019 Inactive prednisone 20 mg tablet RxNorm: 966691 2 Tablet(s) PO daily 05/31/2018 06/04/2018 Inactive prednisone 20 mg tablet RxNorm: 370891 2 Tablet(s) PO daily 05/31/2018 05/30/2018 Inactive ceftriaxone 500 mg solution for injection RxNorm: 4675761 Inj 05/28/2018 05/28/2018 Inactive doxycycline hyclate 100 mg tablet RxNorm: 2718282 1 Tablet(s) PO BID 05/28/2018 06/06/2018 Inactive Kenalog 40 mg/mL suspension for injection RxNorm: 1589533 Milliliter(s) Inj 05/28/2018 05/28/2018 Inactive hydrocodone 10 mg-acetaminophen 325 mg tablet RxNorm: 017249 Tablet(s) PO TAKE ONE TO TWO TABLETS BY MOUTH EVERY 6 HOURS NEEDED FOR PAIN 05/09/2018 05/23/2018 Inactive alprazolam 0.25 mg tablet RxNorm: 194163 1 Tablet(s) PO daily as needed 04/25/2018 07/15/2018 Inactive Bystolic 10 mg tablet RxNorm: 459807 TAKE ONE TABLET BY MOUTH DAILY 04/16/2018 09/12/2018 Inactive hydrocodone 10 mg-acetaminophen 325 mg tablet RxNorm: 087048 Tablet(s) PO TAKE ONE TO TWO TABLETS BY MOUTH EVERY 6 HOURS NEEDED FOR PAIN 03/06/2018 03/20/2018 Inactive trazodone 50 mg tablet RxNorm: 717756 TAKE ONE AND ONE-HALF (1 1/2) TABLET BY MOUTH AT BEDTIME. MAY INCREASE TO 2 TABLETS AT BEDTIME NEEDED 02/23/2018 06/12/2018 Inactive mupirocin 2 % topical ointment RxNorm: 588540 1 TOP BID 02/09/2018 05/27/2018 Inactive Zofran 4 mg tablet RxNorm: 667583 1 Tablet(s) PO TID as needed 02/08/2018 No Stop Date Active Keflex 500 mg capsule RxNorm: 486583 1 Capsule(s) PO TID 02/07/2018 02/13/2018 Inactive alprazolam 0.25 mg tablet RxNorm: 456617 1 Tablet(s) PO daily as needed 01/24/2018 07/09/2018 Inactive hydrocodone 10 mg-acetaminophen 325 mg tablet RxNorm: 361976 Tablet(s) PO TAKE ONE TO TWO TABLETS BY MOUTH EVERY 6 HOURS NEEDED FOR PAIN 01/19/2018 02/02/2018 Inactive hydrochlorothiazide 25 mg tablet RxNorm: 078119 Tablet(s) TAKE ONE TABLET BY MOUTH DAILY 01/19/2018 01/19/2018 Inactive Kenalog 40 mg/mL suspension for injection RxNorm: 6633206 1 Milliliter(s) Inj 01/19/2018 01/19/2018 Inactive piroxicam 20 mg capsule RxNorm: 605166 1 Capsule(s) PO daily 01/19/2018 07/17/2018 Inactive D/C ORDER FOR HCTZ ceftriaxone 500 mg solution for injection RxNorm: 8752433 500 Milligram(s) Inj 01/19/2018 01/19/2018 Inactive Nexium 40 mg capsule,delayed release RxNorm: 658664 TAKE ONE CAPSULE BY MOUTH TWICE A DAY 01/18/2018 04/17/2018 Inactive Nexium 40 mg capsule,delayed release RxNorm: 700387 TAKE ONE CAPSULE BY MOUTH TWICE A DAY 01/15/2018 04/14/2018 Inactive ciprofloxacin 0.3 % eye drops RxNorm: 296426 2 Drop(s) ophthalmic (eye) Q2H while awake x 2 days, then Q4H x 5 days 11/23/2017 05/27/2018 Inactive Keflex 500 mg capsule RxNorm: 553255 1 Capsule(s) PO TID 11/23/2017 11/29/2017 Inactive hydrocodone 10 mg-acetaminophen 325 mg tablet RxNorm: 428588 Tablet(s) PO TAKE ONE TO TWO TABLETS BY MOUTH EVERY 6 HOURS NEEDED FOR PAIN 10/30/2017 11/13/2017 Inactive Augmentin 500 mg-125 mg tablet RxNorm: 168848 1 Tablet(s) PO TID 10/27/2017 11/05/2017 Inactive alprazolam 0.25 mg tablet RxNorm: 558972 1 Tablet(s) PO daily as needed 10/26/2017 04/24/2018 Inactive trazodone 50 mg tablet RxNorm: 275853 TAKE ONE AND ONE-HALF (1 1/2) TABLET BY MOUTH AT BEDTIME. MAY INCREASE TO 2 TABLETS AT BEDTIME NEEDED 09/25/2017 02/03/2018 Inactive Lexapro 20 mg tablet RxNorm: 662177 TAKE ONE AND ONE-HALF TABLET BY MOUTH DAILY 09/15/2017 09/09/2018 Inactive Flagyl 500 mg tablet RxNorm: 459739 1 Tablet(s) PO TID 09/12/2017 09/21/2017 Inactive promethazine 25 mg tablet RxNorm: 304601 1 Tablet(s) PO TID as needed nausea and vomitting THIS WILL MAKE YOU SLEEPY 09/12/2017 11/08/2017 Inactive Keflex 500 mg capsule RxNorm: 640114 1 Capsule(s) PO QID 08/25/2017 08/31/2017 Inactive [SAVINGS FOR UNINSURED PATIENTS -- BIN:[id number], PCN: [id number], Group: [id number], ID# [id number], Process claim through [employer], for questions: . THIS IS NOT INSURANCE.] alprazolam 0.25 mg tablet RxNorm: 319386 1 Tablet(s) PO daily as needed 07/31/2017 04/24/2018 Inactive prednisone 20 mg tablet RxNorm: 444399 2 Tablet(s) PO daily 07/25/2017 07/29/2017 Inactive Augmentin 500 mg-125 mg tablet RxNorm: 397272 1 Tablet(s) PO TID 07/25/2017 08/03/2017 Inactive trazodone 50 mg tablet RxNorm: 306179 TAKE ONE AND ONE-HALF (1 1/2) TABLET BY MOUTH AT BEDTIME. MAY INCREASE TO 2 TABLETS AT BEDTIME NEEDED 06/30/2017 09/03/2017 Inactive Bystolic 10 mg tablet RxNorm: 220576 TAKE ONE TABLET BY MOUTH DAILY 06/30/2017 2017 Inactive hydrochlorothiazide 25 mg tablet RxNorm: 465670 TAKE ONE TABLET BY MOUTH DAILY 06/30/2017 01/18/2018 Inactive Flagyl 500 mg tablet RxNorm: 273350 1 Tablet(s) PO TID 06/27/2017 07/03/2017 Inactive Phenergan with Codeine Syrup RxNorm: 5-10 Milliliter(s) PO Q6 PRN 06/27/2017 11/15/2017 Inactive Levaquin 500 mg tablet RxNorm: 111382 1 Tablet(s) PO daily 06/27/2017 07/03/2017 Inactive Kenalog 40 mg/mL suspension for injection RxNorm: 1222535 1 Milliliter(s) Inj 06/27/2017 06/27/2017 Inactive Nexium 40 mg capsule,delayed release RxNorm: 876516 1 Capsule(s) PO BID TAKE ONE CAPSULE BY MOUTH BID 05/22/2017 09/18/2017 Inactive Nexium 40 mg capsule,delayed release RxNorm: 572600 1 Capsule(s) PO BID TAKE ONE CAPSULE BY MOUTH BID 05/22/2017 05/21/2017 Inactive hydrocodone 10 mg-acetaminophen 325 mg tablet RxNorm: 007075 Tablet(s) PO TAKE ONE TO TWO TABLETS BY MOUTH EVERY 6 HOURS NEEDED FOR PAIN 05/17/2017 06/15/2017 Inactive Nexium 40 mg capsule,delayed release RxNorm: 425995 Capsule(s) TAKE ONE CAPSULE BY MOUTH BID 05/17/2017 05/21/2017 Inactive alprazolam 0.25 mg tablet RxNorm: 309392 1 Tablet(s) PO daily as needed 05/03/2017 07/01/2017 Inactive Levaquin 500 mg tablet RxNorm: 563924 1 Tablet(s) PO daily 04/20/2017 04/26/2017 Inactive clotrimazole 1 % topical cream RxNorm: 058821 1 Application TOP BID 04/20/2017 11/07/2017 Inactive Kenalog 40 mg/mL suspension for injection RxNorm: 9178238 Milliliter(s) Inj 04/20/2017 04/20/2017 Inactive nystatin 100,000 unit/gram topical powder RxNorm: 186098 1 Gram(s) APPLY TOPICALLY TWO TIMES A DAY 04/10/2017 07/08/2017 Inactive trazodone 50 mg tablet RxNorm: 786822 TAKE ONE AND ONE-HALF (1 1/2) TABLET BY MOUTH AT BEDTIME. MAY INCREASE TO 2 TABLETS AT BEDTIME NEEDED 03/28/2017 06/23/2017 Inactive Augmentin 875 mg-125 mg tablet RxNorm: 343536 1 Tablet(s) PO BID 03/14/2017 03/20/2017 Inactive Kenalog 40 mg/mL suspension for injection RxNorm: 1816250 1 Milliliter(s) Inj 03/14/2017 03/14/2017 Inactive Lexapro 20 mg tablet RxNorm: 536947 1.5 Tablet(s) PO daily 03/08/2017 03/07/2017 Inactive Lexapro 20 mg tablet RxNorm: 187704 1.5 Tablet(s) PO daily 03/08/2017 07/05/2017 Inactive alprazolam 0.25 mg tablet RxNorm: 121987 1 Tablet(s) PO daily as needed 02/23/2017 04/23/2017 Inactive (Response to an electronic controlled substance refill request - RxReferenceNumber: [id number]) Flagyl 500 mg tablet RxNorm: 024753 1 Tablet(s) PO TID 02/20/2017 03/01/2017 Inactive promethazine 25 mg tablet RxNorm: 998858 1 Tablet(s) PO TID as needed nausea 02/20/2017 03/01/2017 Inactive Cipro 500 mg tablet RxNorm: 383839 1 Tablet(s) PO BID 02/20/2017 03/01/2017 Inactive Flagyl 500 mg tablet RxNorm: 676131 1 Tablet(s) PO TID 02/09/2017 02/15/2017 Inactive Trintellix 10 mg tablet RxNorm: 7016303 1 Tablet(s) PO QAM 02/06/2017 03/07/2017 Inactive Efudex 5 % topical cream RxNorm: 751170 1 Application TOP BID use on skin spot on nose 02/06/2017 02/15/2017 Inactive Bystolic 10 mg tablet RxNorm: 825658 TAKE ONE TABLET BY MOUTH DAILY 02/03/2017 06/02/2017 Inactive Imitrex 50 mg tablet RxNorm: 182949 TAKE ONE TABLET BY MOUTH EVERY 8 HOURS NEEDED MAY REPEAT IN 1 HOUR OF INITIAL DOSE. DISCONTINUE FIORICET 12/22/2016 02/19/2017 Inactive Nexium 40 mg capsule,delayed release RxNorm: 916292 TAKE ONE CAPSULE BY MOUTH EVERY DAY 12/21/2016 05/16/2017 Inactive Lexapro 20 mg tablet RxNorm: 666289 Tablet(s) TAKE ONE TABLET BY MOUTH DAILY 12/05/2016 02/05/2017 Inactive Augmentin 875 mg-125 mg tablet RxNorm: 457576 1 Tablet(s) PO BID 11/28/2016 12/04/2016 Inactive ceftriaxone 500 mg solution for injection RxNorm: 2222233 1 Milliliter(s) Inj 11/28/2016 11/28/2016 Inactive hydrocodone 10 mg-acetaminophen 325 mg tablet RxNorm: 164710 Tablet(s) PO TAKE ONE TO TWO TABLETS BY MOUTH EVERY 6 HOURS NEEDED FOR PAIN 11/28/2016 05/16/2017 Inactive (Appended: Controlled substance eRx refill - RxReferenceNumber: [id number]) prednisone 20 mg tablet RxNorm: 672220 2 Tablet(s) PO daily 11/28/2016 12/02/2016 Inactive trazodone 50 mg tablet RxNorm: 859846 Tablet(s) TAKE 1 AND 1/2 TABLETS EVERY NIGHT AT BEDTIME , MAY INCREASE TO 2 TABLETS AT BEDTIME NEEDED 11/21/2016 11/20/2016 Inactive Synthroid 100 mcg tablet RxNorm: 596060 1 Tablet(s) PO daily 11/21/2016 05/19/2017 Inactive Brand name only! trazodone 50 mg tablet RxNorm: 239119 TAKE 1 AND 1/2 TABLETS EVERY NIGHT AT BEDTIME , MAY INCREASE TO 2 TABLETS AT BEDTIME NEEDED 11/21/2016 08/01/2018 Inactive Synthroid 100 mcg tablet RxNorm: 989150 1 Tablet(s) PO daily TAKE ONE TABLET BY MOUTH DAILY 11/08/2016 11/20/2016 Inactive ceftriaxone 500 mg solution for injection RxNorm: 1421933 Inj 11/07/2016 11/07/2016 Inactive Kenalog 40 mg/mL suspension for injection RxNorm: 3723236 Milliliter(s) Inj 11/07/2016 11/07/2016 Inactive Xanax 0.25 mg tablet RxNorm: 769857 1 Tablet(s) PO daily as needed 10/31/2016 05/02/2017 Inactive alprazolam 0.25 mg tablet RxNorm: 868206 1 Tablet(s) PO daily as needed 10/21/2016 12/18/2016 Inactive (Response to an electronic controlled substance refill request - RxReferenceNumber: [id number]) hydrochlorothiazide 25 mg tablet RxNorm: 939132 TAKE ONE TABLET BY MOUTH DAILY 10/11/2016 04/08/2017 Inactive Xanax 0.25 mg tablet RxNorm: 980678 1 Tablet(s) PO daily as needed 08/23/2016 10/19/2016 Inactive Flonase Allergy Relief 50 mcg/actuation nasal spray,suspension RxNorm: 3545173 1 [place] NASAL daily 08/15/2016 No Stop Date Active amoxicillin 500 mg capsule RxNorm: 510270 1 Capsule(s) PO TID 08/15/2016 08/24/2016 Inactive Bystolic 10 mg tablet RxNorm: 494600 TAKE ONE TABLET BY MOUTH DAILY 08/01/2016 12/28/2016 Inactive trazodone 50 mg tablet RxNorm: 151773 TAKE 1 AND 1/2 TABLETS EVERY NIGHT AT BEDTIME , MAY INCREASE TO 2 TABLETS AT BEDTIME NEEDED 07/25/2016 11/11/2016 Inactive alprazolam 0.25 mg tablet RxNorm: 400932 1 Tablet(s) PO daily as needed 07/25/2016 08/22/2016 Inactive (Response to an electronic controlled substance refill request - RxReferenceNumber: [id number]) Imitrex 50 mg tablet RxNorm: 736623 1 Tablet(s) PO Q8 as needed may repeat x1 dose in 1 hour of inital dose. 07/13/2016 No Stop Date Active Lexapro 20 mg tablet RxNorm: 959905 TAKE 1/2 TABLET BY MOUTH DAILY FOR 10 DAYS, THEN TAKE ONE TABLET BY MOUTH DAILY 06/27/2016 11/23/2016 Inactive Synthroid 100 mcg tablet RxNorm: 425231 TAKE ONE TABLET BY MOUTH DAILY 06/20/2016 11/07/2016 Inactive Augmentin 500 mg-125 mg tablet RxNorm: 392094 1 Tablet(s) PO TID 06/07/2016 06/13/2016 Inactive hydrocodone 10 mg-acetaminophen 325 mg tablet RxNorm: 047240 Tablet(s) PO TAKE ONE TO TWO TABLETS BY MOUTH EVERY 6 HOURS NEEDED FOR PAIN 06/07/2016 11/27/2016 Inactive (Appended: Controlled substance eRx refill - RxReferenceNumber: [id number]) hydrochlorothiazide 25 mg tablet RxNorm: 248875 TAKE ONE TABLET BY MOUTH DAILY 03/14/2016 09/09/2016 Inactive Edarbi 40 mg tablet RxNorm: 9311459 1 Tablet(s) PO daily 03/14/2016 06/06/2016 Inactive trazodone 50 mg tablet RxNorm: 358154 Tablet(s) TAKE 1 AND 1/2 TABLET AT BEDTIME. MAY INCREASE TO 2 TABLETS IF NECESSARY 02/25/2016 07/05/2016 Inactive Imitrex 50 mg tablet RxNorm: 310642 1 Tablet(s) PO Q8 as needed may repeat x1 dose in 1 hour of inital dose. 02/25/2016 07/12/2016 Inactive dc fioricet Xanax 0.25 mg tablet RxNorm: 719540 1 Tablet(s) PO daily as needed 02/24/2016 07/21/2016 Inactive mupirocin 2 % topical ointment RxNorm: 985180 1 TOP BID 02/22/2016 11/08/2017 Inactive Bactrim DS 800 mg-160 mg tablet RxNorm: 884165 1 Tablet(s) PO BID 02/22/2016 03/02/2016 Inactive Fioricet 50 mg-325 mg-40 mg tablet RxNorm: 153493 Tablet(s) TAKE ONE TABLET BY MOUTH EVERY 4 HOURS NEEDED FOR headache 02/12/2016 02/24/2016 Inactive (Response to an electronic controlled substance refill request - RxReferenceNumber: [id number]) Fioricet 50 mg-325 mg-40 mg tablet RxNorm: 528926 Tablet(s) TAKE ONE TABLET BY MOUTH EVERY 4 HOURS NEEDED FOR headache 02/12/2016 02/11/2016 Inactive (Response to an electronic controlled substance refill request - RxReferenceNumber: [id number]) Nexium 40 mg capsule,delayed release RxNorm: 039311 TAKE ONE CAPSULE BY MOUTH EVERY DAY 02/01/2016 10/27/2016 Inactive Bystolic 10 mg tablet RxNorm: 383522 Tablet(s) TAKE ONE TABLET BY MOUTH DAILY 01/06/2016 07/03/2016 Inactive Xanax 0.25 mg tablet RxNorm: 745059 1 Tablet(s) PO daily as needed 12/28/2015 02/23/2016 Inactive Levaquin 500 mg tablet RxNorm: 402806 1 Tablet(s) PO daily take a probiotic daily 12/14/2015 02/11/2016 Inactive Levaquin 500 mg tablet RxNorm: 326035 1 Tablet(s) PO daily take a probiotic daily 12/14/2015 12/13/2015 Inactive prednisone 20 mg tablet RxNorm: 798606 1 Tablet(s) PO BID 12/07/2015 12/13/2015 Inactive Augmentin 875 mg-125 mg tablet RxNorm: 152200 1 Tablet(s) PO BID 12/07/2015 12/13/2015 Inactive ceftriaxone 500 mg solution for injection RxNorm: 1444124 Inj 12/07/2015 12/07/2015 Inactive Phenergan with Codeine Syrup RxNorm: 5-10 Milliliter(s) PO Q6 PRN 12/07/2015 06/26/2017 Inactive alprazolam 0.25 mg tablet RxNorm: 842558 1 Tablet(s) PO daily as needed 11/27/2015 12/25/2015 Inactive (Response to an electronic controlled substance refill request - RxReferenceNumber: [id number]) trazodone 50 mg tablet RxNorm: 123852 TAKE 1 AND 1/2 TABLET AT BEDTIME FOR 2 WEEKS, MAY INCREASE TO 2 TABLETS IF NECESSARY AFTER THAT 11/26/2015 02/24/2016 Inactive ceftriaxone 500 mg solution for injection RxNorm: 2907365 Milliliter(s) Inj 11/24/2015 11/24/2015 Inactive prednisone 10 mg tablet RxNorm: 404909 3 Tablet(s) PO daily 11/24/2015 11/28/2015 Inactive cefdinir 300 mg capsule RxNorm: 720635 1 Capsule(s) PO BID 11/24/2015 11/30/2015 Inactive Kenalog 40 mg/mL suspension for injection RxNorm: 3208172 1 Milliliter(s) Inj 11/24/2015 11/24/2015 Inactive Lexapro 20 mg tablet RxNorm: 575337 TAKE 1/2 TABLET BY MOUTH DAILY FOR 10 DAYS, THEN TAKE ONE TABLET BY MOUTH DAILY 11/23/2015 05/20/2016 Inactive Lipitor 10 mg tablet RxNorm: 147816 Tablet(s) TAKE ONE TABLET BY MOUTH EVERY DAY 10/26/2015 11/06/2016 Inactive Norvasc 10 mg tablet RxNorm: 614496 Tablet(s) PO TAKE ONE TABLET BY MOUTH EVERY DAY 10/26/2015 01/18/2018 Inactive hydrochlorothiazide 25 mg tablet RxNorm: 699928 TAKE ONE TABLET BY MOUTH DAILY 10/20/2015 01/17/2016 Inactive promethazine 25 mg/mL injection solution RxNorm: 473928 Milliliter(s) Inj 08/27/2015 08/27/2015 Inactive ketorolac 60 mg/2 mL intramuscular solution RxNorm: 025174 Milliliter(s) IM 08/27/2015 08/27/2015 Inactive alprazolam 0.25 mg tablet RxNorm: 363691 1 Tablet(s) PO daily as needed 08/27/2015 10/25/2017 Inactive (Response to an electronic controlled substance refill request - RxReferenceNumber: [id number]) Lexapro 20 mg tablet RxNorm: 241630 TAKE 1/2 TABLET BY MOUTH DAILY FOR 10 DAYS, THEN TAKE ONE TABLET BY MOUTH DAILY 08/13/2015 11/10/2015 Inactive Flonase 50 mcg/actuation nasal spray,suspension RxNorm: 259580 PLACE 1 SPRAY IN EACH NOSTRIL DAILY 08/13/2015 02/08/2016 Inactive Augmentin 500 mg-125 mg tablet RxNorm: 141332 1 Tablet(s) PO TID 08/10/2015 08/16/2015 Inactive Kenalog 40 mg/mL suspension for injection RxNorm: 6966658 Milliliter(s) Inj 08/10/2015 08/10/2015 Inactive ceftriaxone 500 mg solution for injection RxNorm: 9819162 Inj 08/10/2015 08/10/2015 Inactive nystatin 100,000 unit/mL oral suspension RxNorm: 894397 4 Milliliter(s) PO QID 08/10/2015 08/16/2015 Inactive trazodone 50 mg tablet RxNorm: 468866 TAKE 1 AND 1/2 TABLET AT BEDTIME FOR 2 WEEKS, MAY INCREASE TO 2 TABLETS IF NECESSARY AFTER THAT 07/31/2015 11/25/2015 Inactive ceftriaxone 500 mg solution for injection RxNorm: 4528200 1 Milliliter(s) Inj 07/28/2015 07/28/2015 Inactive Bactrim DS 800 mg-160 mg tablet RxNorm: 654210 1 Tablet(s) PO BID 07/28/2015 08/06/2015 Inactive Bactroban 2 % topical ointment RxNorm: 757191 1 Application TOP BID 07/28/2015 08/06/2015 Inactive Diflucan 150 mg tablet RxNorm: 202912 1 Tablet(s) PO daily 06/11/2015 06/17/2015 Inactive clotrimazole 1 % topical cream RxNorm: 473226 1 Application TOP BID 06/11/2015 07/10/2015 Inactive Bystolic 10 mg tablet RxNorm: 259211 TAKE ONE TABLET BY MOUTH DAILY 06/08/2015 12/04/2015 Inactive alprazolam 0.25 mg tablet RxNorm: 529394 1 Tablet(s) PO daily as needed 06/01/2015 08/25/2015 Inactive (Response to an electronic controlled substance refill request - RxReferenceNumber: [id number]) Fioricet 50 mg-325 mg-40 mg tablet RxNorm: 864460 Tablet(s) TAKE ONE TABLET BY MOUTH EVERY 4 HOURS NEEDED FOR headache 05/28/2015 06/08/2015 Inactive (Response to an electronic controlled substance refill request - RxReferenceNumber: [id number]) trazodone 50 mg tablet RxNorm: 412146 TAKE 1 AND 1/2 TABLET AT BEDTIME FOR 2 WEEKS, MAY INCREASE TO 2 TABLETS IF NECESSARY AFTER THAT 05/25/2015 08/22/2015 Inactive trazodone 50 mg tablet RxNorm: 789187 TAKE 1 AND 1/2 TABLET AT BEDTIME FOR 2 WEEKS, MAY INCREASE TO 2 TABLETS IF NECESSARY AFTER THAT 05/25/2015 05/24/2015 Inactive Synthroid 100 mcg tablet RxNorm: 512437 TAKE ONE TABLET BY MOUTH DAILY 04/23/2015 01/17/2016 Inactive Lipitor 10 mg tablet RxNorm: 924934 TAKE ONE TABLET BY MOUTH EVERY DAY 04/23/2015 10/25/2015 Inactive Kenalog 40 mg/mL suspension for injection RxNorm: 8697001 Milliliter(s) Inj 03/19/2015 03/19/2015 Inactive Lexapro 20 mg tablet RxNorm: 568056 1 Tablet(s) PO daily 03/19/2015 07/16/2015 Inactive 1/2 tab daily x 10 days then 1 tab daily hydrocodone 10 mg-acetaminophen 325 mg tablet RxNorm: 314084 Tablet(s) PO TAKE ONE TO TWO TABLETS BY MOUTH EVERY 6 HOURS NEEDED FOR PAIN 03/19/2015 06/06/2016 Inactive (Appended: Controlled substance eRx refill - RxReferenceNumber: [id number]) Carafate 1 gram tablet RxNorm: 173176 1 Tablet(s) PO AC & HS 03/19/2015 06/16/2015 Inactive dissolve in water and take as a slurry hydrochlorothiazide 25 mg tablet RxNorm: 733350 1 Tablet(s) PO daily 03/12/2015 09/07/2015 Inactive Nexium 40 mg capsule,delayed release RxNorm: 711169 TAKE ONE CAPSULE BY MOUTH EVERY DAY 02/26/2015 12/22/2015 Inactive Cymbalta 60 mg capsule,delayed release RxNorm: 021163 TAKE ONE CAPSULE BY MOUTH TWICE A DAY 02/23/2015 03/18/2015 Inactive alprazolam 0.25 mg tablet RxNorm: 023303 1 Tablet(s) PO daily as needed 02/11/2015 05/10/2015 Inactive (Response to an electronic controlled substance refill request - RxReferenceNumber: [id number]) trazodone 50 mg tablet RxNorm: 224293 TAKE 1 AND 1/2 TABLET AT BEDTIME FOR 2 WEEKS, MAY INCREASE TO 2 TABLETS IF NECESSARY AFTER THAT 01/27/2015 05/24/2015 Inactive Augmentin 500 mg-125 mg tablet RxNorm: 574804 1 Tablet(s) PO TID 01/07/2015 01/13/2015 Inactive gentamicin 0.3 % eye drops RxNorm: 525578 3 Drop(s) OPH QID 01/07/2015 01/13/2015 Inactive [AttnRPh: Saving apply/adjudicate RxGRP:[id number] RxBIN:[id number] RxPCN: ID#:[id number]] scopolamine 1.5 mg transdermal 72 hour patch RxNorm: 693274 1 Patch TD q72 hours 01/07/2015 11/23/2015 Inactive Synthroid 100 mcg tablet RxNorm: 189363 TAKE ONE TABLET BY MOUTH ONCE A DAY 01/06/2015 04/22/2015 Inactive nystatin 100,000 unit/gram topical powder RxNorm: 901241 APPLY TOPICALLY TWO TIMES A DAY 12/18/2014 03/17/2015 Inactive alprazolam 0.25 mg tablet RxNorm: 500989 TAKE ONE TABLET BY MOUTH DAILY NEEDED 10/30/2014 11/28/2014 Inactive (Response to an electronic controlled substance refill request - RxReferenceNumber: [id number]) alprazolam 0.25 mg tablet RxNorm: 253851 Tablet(s) TAKE ONE TABLET BY MOUTH DAILY 10/30/2014 10/29/2014 Inactive (Response to an electronic controlled substance refill request - RxReferenceNumber: [id number]) Lipitor 10 mg tablet RxNorm: 484757 TAKE ONE TABLET BY MOUTH EVERY DAY 10/30/2014 02/26/2015 Inactive alprazolam 0.25 mg tablet RxNorm: 282512 TAKE ONE TABLET BY MOUTH DAILY 10/07/2014 10/29/2014 Inactive (Response to an electronic controlled substance refill request - RxReferenceNumber: [id number]) alprazolam 0.25 mg tablet RxNorm: 670788 TAKE ONE TABLET BY MOUTH DAILY 10/06/2014 10/07/2014 Inactive (Response to an electronic controlled substance refill request - RxReferenceNumber: [id number]) alprazolam 0.25 mg tablet RxNorm: 438906 Tablet(s) TAKE ONE TABLET BY MOUTH EVERY DAY NEEDED 09/30/2014 10/06/2014 Inactive (Response to an electronic controlled substance refill request - RxReferenceNumber: [id number]) Fioricet 50 mg-325 mg-40 mg tablet RxNorm: 858742 Tablet(s) TAKE ONE TABLET BY MOUTH EVERY 4 HOURS NEEDED FOR headache 09/29/2014 10/12/2014 Inactive (Response to an electronic controlled substance refill request - RxReferenceNumber: [id number]) Bystolic 10 mg tablet RxNorm: 695446 1 Tablet(s) PO daily TAKE ONE TABLET BY MOUTH EVERY DAY 09/29/2014 04/26/2015 Inactive Bystolic 5 mg tablet RxNorm: 434370 TAKE 1 AND 1/2 TABLETS ONCE DAILY 09/24/2014 09/23/2014 Inactive Bystolic 5 mg tablet RxNorm: 400792 Tablet(s) TAKE 1 AND 1/2 TABLETS ONCE DAILY 09/24/2014 09/18/2015 Inactive gentamicin 0.3 % eye drops RxNorm: 299981 3 Drop(s) OPH QID 09/23/2014 09/29/2014 Inactive trazodone 50 mg tablet RxNorm: 561401 TAKE 1 AND 1/2 TABLET AT BEDTIME FOR 2 WEEKS, MAY INCREASE TO 2 TABLETS IF NECESSARY AFTER THAT 09/22/2014 01/26/2015 Inactive Fioricet 50 mg-325 mg-40 mg tablet RxNorm: 414989 TAKE ONE TABLET BY MOUTH EVERY 4 HOURS NEEDED FOR PAIN 09/17/2014 09/28/2014 Inactive (Response to an electronic controlled substance refill request - RxReferenceNumber: [id number]) Duragesic 50 mcg/hr transdermal patch RxNorm: 384559 1 TD q72 hours 08/07/2014 01/06/2015 Inactive [SAVINGS FOR UNINSURED PATIENTS -- BIN:[id number], PCN: ASPROD1, Group: [facility], ID# [id number], Process claim through [employer], for questions: . THIS IS NOT INSURANCE.] alprazolam 0.25 mg tablet RxNorm: 066617 TAKE ONE TABLET BY MOUTH EVERY DAY NEEDED 07/31/2014 08/29/2014 Inactive (Response to an electronic controlled substance refill request - RxReferenceNumber: [id number]) alprazolam 0.25 mg tablet RxNorm: 368856 1 Tablet(s) PO daily as needed TAKE ONE TABLET BY MOUTH EVERY DAY NEEDED 07/30/2014 08/01/2014 Inactive (Response to an electronic controlled substance refill request - RxReferenceNumber: [id number]) Diflucan 150 mg tablet RxNorm: 301031 1 Tablet(s) PO daily 06/25/2014 07/01/2014 Inactive [SAVINGS FOR UNINSURED PATIENTS -- BIN:118609, PCN: ASPROD1, Group: [id number], ID# [id number], Process claim through [employer], for questions: . THIS IS NOT INSURANCE.] Kenalog 40 mg/mL suspension for injection RxNorm: 1354671 Milliliter(s) Inj 06/23/2014 06/23/2014 Inactive [SAVINGS FOR UNINSURED PATIENTS -- BIN:625329, PCN: ASPROD1, Group: [id number], ID# [id number], Process claim through [employer], for questions: . THIS IS NOT INSURANCE.] ceftriaxone 500 mg solution for injection RxNorm: 929696 Inj 06/23/2014 06/23/2014 Inactive [SAVINGS FOR UNINSURED PATIENTS -- BIN:149045, PCN: ASPROD1, Group: [id number], ID# [id number], Process claim through [employer], for questions: . THIS IS NOT INSURANCE.] Levaquin 500 mg tablet RxNorm: 889626 1 Tablet(s) PO daily 06/23/2014 07/13/2014 Inactive [SAVINGS FOR UNINSURED PATIENTS -- BIN:407706, PCN: ASPROD1, Group: [id number], ID# [id number], Process claim through [employer], for questions: . THIS IS NOT INSURANCE.] Duragesic 50 mcg/hr transdermal patch RxNorm: 495396 1 TD q72 hours 06/05/2014 08/06/2014 Inactive [SAVINGS FOR UNINSURED PATIENTS -- BIN:417987, PCN: ASPROD1, Group: [facility], ID# [id number], Process claim through [employer], for questions: . THIS IS NOT INSURANCE.] alprazolam 0.25 mg tablet RxNorm: 243348 1 Tablet(s) PO daily as needed TAKE ONE TABLET BY MOUTH EVERY DAY NEEDED 06/02/2014 07/29/2014 Inactive (Response to an electronic controlled substance refill request - RxReferenceNumber: [id number]) nystatin 100,000 unit/gram topical powder RxNorm: 449542 APPLY TO AFFECTED AREA(S) TWO TIMES A DAY 05/01/2014 06/14/2014 Inactive hydrochlorothiazide 25 mg tablet RxNorm: 287925 TAKE ONE TABLET BY MOUTH EVERY DAY MUST CALL MD FOR APPOINTMENT 04/24/2014 10/20/2014 Inactive alprazolam 0.25 mg tablet RxNorm: 843313 Tablet(s) TAKE ONE TABLET BY MOUTH EVERY DAY NEEDED 04/16/2014 06/02/2014 Inactive (Response to an electronic controlled substance refill request - RxReferenceNumber: [id number]) alprazolam 0.25 mg tablet RxNorm: 823111 TAKE ONE TABLET BY MOUTH EVERY DAY NEEDED 04/16/2014 05/15/2014 Inactive (Response to an electronic controlled substance refill request - RxReferenceNumber: [id number]) alprazolam 0.25 mg tablet RxNorm: 290147 TAKE ONE TABLET BY MOUTH EVERY DAY NEEDED 04/16/2014 05/15/2014 Inactive (Response to an electronic controlled substance refill request - RxReferenceNumber: [id number]) alprazolam 0.25 mg tablet RxNorm: 643015 TAKE ONE TABLET BY MOUTH EVERY DAY NEEDED 04/14/2014 04/16/2014 Inactive (Response to an electronic controlled substance refill request - RxReferenceNumber: [id number]) Lipitor 10 mg tablet RxNorm: 523705 TAKE ONE TABLET BY MOUTH EVERY DAY 04/14/2014 09/10/2014 Inactive alprazolam 0.25 mg tablet RxNorm: 828409 TAKE ONE TABLET BY MOUTH EVERY DAY NEEDED 04/14/2014 04/14/2014 Inactive (Response to an electronic controlled substance refill request - RxReferenceNumber: [id number]) alprazolam 0.25 mg tablet RxNorm: 480344 TAKE ONE TABLET BY MOUTH EVERY DAY NEEDED 04/14/2014 04/15/2014 Inactive (Response to an electronic controlled substance refill request - RxReferenceNumber: [id number]) alprazolam 0.25 mg tablet RxNorm: 315702 TAKE ONE TABLET BY MOUTH EVERY DAY NEEDED 04/14/2014 04/14/2014 Inactive (Response to an electronic controlled substance refill request - [id number]) nystatin 100,000 unit/gram topical powder RxNorm: 342878 1 Application TOP BID 04/03/2014 07/01/2014 Inactive [SAVINGS FOR UNINSURED PATIENTS -- BIN:051309, PCN: ASPROD1, Group: [id number], ID# [id number], Process claim through [employer], for questions: . THIS IS NOT INSURANCE.] Keflex 500 mg capsule RxNorm: 507974 1 Capsule(s) PO QID 04/03/2014 04/09/2014 Inactive [SAVINGS FOR UNINSURED PATIENTS -- BIN:157256, PCN: ASPROD1, Group: [id number], ID# [id number], Process claim through [employer], for questions: . THIS IS NOT INSURANCE.] Synthroid 100 mcg tablet RxNorm: 615437 1 Tablet(s) PO daily TAKE ONE TABLET BY MOUTH EVERY DAY 04/01/2014 01/05/2015 Inactive [SAVINGS FOR UNINSURED PATIENTS -- BIN:216913, PCN: ASPROD1, Group: [facility], ID# [id number], Process claim through [employer], for questions: . THIS IS NOT INSURANCE.] Duragesic 50 mcg/hr transdermal patch RxNorm: 503191 1 TD q72 hours 03/24/2014 06/04/2014 Inactive [SAVINGS FOR UNINSURED PATIENTS -- BIN:010535, PCN: ASPROD1, Group: [facility], ID# [id number], Process claim through [employer], for questions: . THIS IS NOT INSURANCE.] trazodone 50 mg tablet RxNorm: 513491 TAKE 1 AND 1/2 TABLET AT BEDTIME FOR 2 WEEKS, MAY INCREASE TO 2 TABLETS IF NECESSARY AFTER THAT 03/18/2014 09/13/2014 Inactive nystatin 100,000 unit/gram topical powder RxNorm: 676779 1 Application TOP BID 03/07/2014 03/16/2014 Inactive [SAVINGS FOR UNINSURED PATIENTS -- BIN:820876, PCN: ASPROD1, Group: [facility], ID# [id number], Process claim through [employer], for questions: . THIS IS NOT INSURANCE.] permethrin 5 % topical cream RxNorm: 946684 1 Application TOP daily 03/07/2014 11/23/2015 Inactive apply head to toe-leave on overnight and wash off in the a.m. May repeat x 1 if needed Diflucan 150 mg tablet RxNorm: 256941 1 Tablet(s) PO daily 03/07/2014 03/09/2014 Inactive [SAVINGS FOR UNINSURED PATIENTS -- BIN:027050, PCN: ASPROD1, Group: [id number], ID# [id number], Process claim through [employer], for questions: . THIS IS NOT INSURANCE.] hydrochlorothiazide 25 mg tablet RxNorm: 420994 TAKE ONE TABLET BY MOUTH EVERY DAY MUST CALL MD FOR APPOINTMENT 03/06/2014 04/23/2014 Inactive Zithromax Z-Sergio 250 mg tablet RxNorm: 968140 Tablet(s) PO as directed 03/04/2014 11/23/2015 Inactive [SAVINGS FOR UNINSURED PATIENTS -- BIN:484978, PCN: ASPROD1, Group: [id number], ID# [id number], Process claim through [employer], for questions: . THIS IS NOT INSURANCE.] Flonase 50 mcg/actuation nasal spray,suspension RxNorm: 987828 1 [place] NASAL daily 03/04/2014 07/01/2014 Inactive [SAVINGS FOR UNINSURED PATIENTS -- BIN:687108, PCN: ASPROD1, Group: [facility], ID# [id number], Process claim through [employer], for questions: . THIS IS NOT INSURANCE.] alprazolam 0.25 mg tablet RxNorm: 951908 1 Tablet(s) PO PRN TAKE ONE TABLET BY MOUTH EVERY DAY NEEDED 02/25/2014 04/14/2014 Inactive (Appended: Controlled substance eRx refill - RxReferenceNumber: [id number]) alprazolam 0.25 mg tablet RxNorm: 287384 TAKE ONE TABLET BY MOUTH EVERY DAY NEEDED 02/21/2014 03/22/2014 Inactive (Response to an electronic controlled substance refill request - RxReferenceNumber: [id number]) alprazolam 0.25 mg tablet RxNorm: 031656 TAKE ONE TABLET BY MOUTH EVERY DAY NEEDED 02/21/2014 03/22/2014 Inactive (Response to an electronic controlled substance refill request - RxReferenceNumber: [id number]) alprazolam 0.25 mg tablet RxNorm: 698903 TAKE ONE TABLET BY MOUTH EVERY DAY NEEDED 02/18/2014 03/19/2014 Inactive (Response to an electronic controlled substance refill request - RxReferenceNumber: [id number]) Cymbalta 60 mg capsule,delayed release RxNorm: 004175 TAKE ONE CAPSULE BY MOUTH TWICE A DAY 02/18/2014 01/13/2015 Inactive Nexium 40 mg capsule,delayed release RxNorm: 063035 TAKE ONE CAPSULE BY MOUTH EVERY DAY 02/18/2014 01/13/2015 Inactive Bactrim DS 800 mg-160 mg tablet RxNorm: 725414 1 Tablet(s) PO BID 02/13/2014 02/19/2014 Inactive probiotic while one antibiotic Bactrim DS 800 mg-160 mg tablet RxNorm: 101309 1 Tablet(s) PO BID 02/13/2014 02/12/2014 Inactive hydrocodone 10 mg-acetaminophen 325 mg tablet RxNorm: 009756 Tablet(s) PO TAKE ONE TO TWO TABLETS BY MOUTH EVERY 6 HOURS NEEDED FOR PAIN 02/06/2014 03/18/2015 Inactive (Appended: Controlled substance eRx refill - RxReferenceNumber: [id number]) Abilify 2 mg tablet RxNorm: 206241 Tablet(s) PO TAKE ONE TABLET BY MOUTH EVERY NIGHT AT BEDTIME 02/03/2014 03/19/2015 Inactive Duragesic 50 mcg/hr transdermal patch RxNorm: 642549 1 TD q72 hours 01/14/2014 03/23/2014 Inactive alprazolam 0.25 mg tablet RxNorm: 072631 1 Tablet(s) PO QDAY PRN 01/14/2014 02/12/2014 Inactive alprazolam 0.25 mg tablet RxNorm: 854706 Tablet(s) PO TAKE ONE TABLET BY MOUTH EVERY DAY NEEDED 01/14/2014 02/24/2014 Inactive (Appended: Controlled substance eRx refill - RxReferenceNumber: [id number]) Lipitor 10 mg tablet RxNorm: 727000 Tablet(s) PO TAKE ONE TABLET BY MOUTH EVERY DAY 01/14/2014 04/13/2014 Inactive Synthroid 100 mcg tablet RxNorm: 175063 Tablet(s) PO TAKE ONE TABLET BY MOUTH EVERY DAY 2013 03/31/2014 Inactive Fioricet 50 mg-325 mg-40 mg tablet RxNorm: 326665 Tablet(s) PO TAKE ONE TABLET BY MOUTH EVERY 4 HOURS NEEDED FOR PAIN 11/27/2013 09/17/2014 Inactive Fioricet 50 mg-325 mg-40 mg tablet RxNorm: 104996 Tablet(s) PO TAKE ONE TABLET BY MOUTH EVERY 4 HOURS NEEDED FOR PAIN 11/25/2013 11/26/2013 Inactive Zithromax Z-Sergio 250 mg tablet RxNorm: 859834 Tablet(s) PO as directed 11/11/2013 01/13/2014 Inactive Bystolic 10 mg tablet RxNorm: 301491 Tablet(s) PO TAKE ONE TABLET BY MOUTH EVERY DAY 10/21/2013 09/28/2014 Inactive Abilify 2 mg tablet RxNorm: 222309 1 Tablet(s) PO QHS 09/25/2013 01/22/2014 Inactive Synthroid 100 mcg tablet RxNorm: 643900 Tablet(s) PO TAKE ONE TABLET BY MOUTH EVERY DAY 09/24/2013 12/25/2013 Inactive Abilify 2 mg tablet RxNorm: 277296 1 Tablet(s) PO QHS 09/24/2013 09/24/2013 Inactive Rocephin 500 mg solution for injection RxNorm: 713259 1ml Milliliter(s) Inj 09/24/2013 09/24/2013 Inactive Rocephin 500 mg solution for injection RxNorm: 479811 1 Milliliter(s) Inj 09/19/2013 09/19/2013 Inactive Bystolic 5 mg tablet RxNorm: 708999 1 1/2 Tablet(s) PO daily 09/17/2013 03/15/2014 Inactive 1 1/2 daily may have 90 day if cheaper Bystolic 5 mg tablet RxNorm: 535544 1 1/2 Tablet(s) PO daily 09/17/2013 09/16/2013 Inactive 1 1/2 daily Lipitor 10 mg tablet RxNorm: 479845 Tablet(s) PO TAKE ONE TABLET BY MOUTH EVERY DAY 09/12/2013 01/13/2014 Inactive hydrocodone 10 mg-acetaminophen 325 mg tablet RxNorm: 351236 Tablet(s) PO TAKE ONE TO TWO TABLETS BY MOUTH EVERY 6 HOURS NEEDED FOR PAIN 09/09/2013 10/29/2017 Inactive (Appended: Controlled substance eRx refill - RxReferenceNumber: [id number]) hydrocodone 10 mg-acetaminophen 325 mg tablet RxNorm: 145861 1 Tablet(s) PO Q6 PRN 09/09/2013 02/06/2014 Inactive hydrocodone 10 mg-acetaminophen 325 mg tablet RxNorm: 524107 Tablet(s) PO TAKE ONE TO TWO TABLETS BY MOUTH EVERY 6 HOURS NEEDED FOR PAIN 09/06/2013 10/29/2017 Inactive (Appended: Controlled substance eRx refill - RxReferenceNumber: [id number]) Norvasc 10 mg tablet RxNorm: 158549 Tablet(s) PO TAKE ONE TABLET BY MOUTH EVERY DAY 09/05/2013 10/25/2015 Inactive trazodone 50 mg tablet RxNorm: 275022 1 1/2 Tablet(s) PO QHS 09/03/2013 03/17/2014 Inactive 75q hs x 2 week may increase to 100mg if nec after that nystatin 100,000 unit/mL oral suspension RxNorm: 469268 6 Milliliter(s) PO QID 08/06/2013 08/15/2013 Inactive Flonase 50 mcg/actuation nasal spray,suspension RxNorm: 840681 2 [place] NASAL daily 08/06/2013 03/03/2014 Inactive nystatin 100,000 unit/mL oral suspension RxNorm: 780446 6 Unit(s) PO QID 08/05/2013 08/05/2013 Inactive Phenergan with Codeine Syrup RxNorm: 5 Milliliter(s) PO Q4 PRN 08/05/2013 12/02/2013 Inactive 8 ounces alprazolam 0.25 mg tablet RxNorm: 164990 1 Tablet(s) PO QDAY PRN 07/29/2013 01/14/2014 Inactive Diflucan 150 mg tablet RxNorm: 259340 1 Tablet(s) PO daily 07/24/2013 07/26/2013 Inactive hydrochlorothiazide 25 mg tablet RxNorm: 827979 Tablet(s) PO TAKE ONE TABLET BY MOUTH EVERY DAY MUST CALL MD FOR APPOINTMENT 07/19/2013 03/05/2014 Inactive Phenergan with Codeine Syrup RxNorm: 10 Milliliter(s) PO Q4 PRN 07/10/2013 08/04/2013 Inactive 8 ounces Rocephin 500 mg solution for injection RxNorm: 6396177 1 Inj 07/10/2013 07/10/2013 Inactive cefdinir 300 mg capsule RxNorm: 999831 1 Capsule(s) PO BID 07/10/2013 07/16/2013 Inactive prednisone 10 mg tablet RxNorm: 730496 3 Tablet(s) PO daily 07/10/2013 07/14/2013 Inactive Carafate 100 mg/mL oral suspension RxNorm: 719939 10 Milliliter(s) PO Q6 PRN pt to take carafate 10mL every 6 hours as needed. 07/10/2013 08/05/2014 Inactive Kenalog 40 mg/mL suspension for injection RxNorm: 1034378 1 Milliliter(s) Inj 07/10/2013 07/10/2013 Inactive trazodone 50 mg tablet RxNorm: 942201 1 Tablet(s) PO QHS 07/10/2013 09/02/2013 Inactive sulfamethoxazole 800 mg-trimethoprim 160 mg tablet RxNorm: 199243 1 Tablet(s) PO BID 06/03/2013 06/12/2013 Inactive Synthroid 125 mcg tablet RxNorm: 604276 1 Tablet(s) PO daily 05/07/2013 09/23/2013 Inactive Bystolic 10 mg tablet RxNorm: 275343 1.5 Tablet(s) PO daily 05/07/2013 09/03/2013 Inactive Voltaren 1 % Topical Gel RxNorm: 217651 4 Gram(s) TOP QID apply 4 grams to knees, 2 grams to hands and ankles four times daily. 05/07/2013 09/03/2013 Inactive hydrocodone 10 mg-acetaminophen 325 mg tablet RxNorm: 301903 1 Tablet(s) PO Q6 PRN 04/23/2013 09/09/2013 Inactive Norvasc 10 mg tablet RxNorm: 080987 Tablet(s) PO TAKE ONE TABLET BY MOUTH EVERY DAY 04/23/2013 09/04/2013 Inactive alprazolam 0.25 mg tablet RxNorm: 506426 1 Tablet(s) PO QDAY PRN 03/25/2013 07/22/2013 Inactive Bystolic 10 mg tablet RxNorm: 860481 1 Tablet(s) PO daily TAKE ONE TABLET BY MOUTH EVERY DAY 03/25/2013 05/06/2013 Inactive zolpidem 10 mg tablet RxNorm: 597427 1 Tablet(s) PO HS PRN 03/25/2013 07/09/2013 Inactive gentamicin 0.3 % Eye Drops RxNorm: 584711 3 Drop(s) OPH QID three gtts to each eye QID x 7 days 03/11/2013 03/10/2013 Inactive gentamicin 0.3 % eye drops RxNorm: 460399 3 Drop(s) OPH QID three gtts to each eye QID x 7 days 03/11/2013 03/17/2013 Inactive Nexium 40 mg capsule,delayed release RxNorm: 024652 Capsule(s) PO TAKE ONE CAPSULE BY MOUTH EVERY DAY 02/15/2013 02/17/2014 Inactive Cymbalta 60 mg capsule,delayed release RxNorm: 133286 Capsule(s) PO TAKE ONE CAPSULE BY MOUTH TWICE A DAY 02/15/2013 02/17/2014 Inactive hydrocodone 10 mg-acetaminophen 325 mg tablet RxNorm: 0248907 1 Tablet(s) PO Q6 PRN 01/22/2013 04/22/2013 Inactive Lipitor 10 mg tablet RxNorm: 313670 Tablet(s) PO TAKE ONE TABLET BY MOUTH EVERY DAY 01/07/2013 09/11/2013 Inactive Cymbalta 60 mg capsule,delayed release RxNorm: 882494 Capsule(s) PO TAKE ONE CAPSULE BY MOUTH TWICE A DAY 01/02/2013 02/14/2013 Inactive Synthroid 100 mcg tablet RxNorm: 086547 1 Tablet(s) PO 12/03/2012 05/06/2013 Inactive Enablex 7.5 mg tablet,extended release RxNorm: 194162 1 Tablet(s) PO daily 11/28/2012 11/27/2012 Inactive Enablex 7.5 mg tablet,extended release RxNorm: 341981 1 Tablet(s) PO daily 11/28/2012 11/28/2012 Inactive scopolamine 1.5 mg 72 hr Transderm Patch RxNorm: 004775 1 Milligram(s) TD q72 hours 11/26/2012 05/06/2013 Inactive hydrochlorothiazide 25 mg tablet RxNorm: 253192 Tablet(s) PO TAKE ONE TABLET BY MOUTH EVERY DAY MUST CALL MD FOR APPOINTMENT 11/24/2012 07/18/2013 Inactive Cymbalta 60 mg capsule,delayed release RxNorm: 792420 Capsule(s) PO TAKE ONE CAPSULE BY MOUTH TWICE A DAY 10/26/2012 01/01/2013 Inactive Bystolic 10 mg tablet RxNorm: 489125 Tablet(s) PO TAKE ONE TABLET BY MOUTH EVERY DAY 10/12/2012 03/25/2013 Inactive zolpidem 10 mg tablet RxNorm: 443942 1 Tablet(s) PO HS PRN 10/02/2012 01/29/2013 Inactive alprazolam 0.25 mg tablet RxNorm: 101735 1 Tablet(s) PO QDAY PRN 10/02/2012 01/29/2013 Inactive Kenalog 40 mg/mL Susp for Injection RxNorm: 8784074 1 Milliliter(s) Inj 09/24/2012 09/24/2012 Inactive Diflucan 150 mg tablet RxNorm: 564993 1 Tablet(s) PO daily 09/24/2012 09/30/2012 Inactive acyclovir 400 mg tablet RxNorm: 853627 1 Tablet(s) PO QID 09/24/2012 10/08/2012 Inactive Cipro 500 mg tablet RxNorm: 683514 1 Tablet(s) PO BID 09/24/2012 09/30/2012 Inactive Tamiflu 75 mg capsule RxNorm: 574562 1 Capsule(s) PO BID 09/17/2012 09/16/2012 Inactive Tamiflu 75 mg capsule RxNorm: 171163 1 Capsule(s) PO BID 09/17/2012 09/16/2012 Inactive Tamiflu 75 mg capsule RxNorm: 798175 1 Capsule(s) PO BID please disregard order for #14 09/17/2012 09/21/2012 Inactive fluconazole 150 mg tablet RxNorm: 782981 1 Tablet(s) PO daily 09/10/2012 09/13/2012 Inactive ketoconazole 2 % Topical Cream RxNorm: 164426 Application TOP BID apply to affected area BID until gone 08/31/2012 11/01/2017 Inactive Norvasc 10 mg tablet RxNorm: 032850 Tablet(s) PO TAKE ONE TABLET BY MOUTH EVERY DAY 08/29/2012 04/22/2013 Inactive Cipro 500 mg tablet RxNorm: 134767 1 Tablet(s) PO BID 08/17/2012 08/26/2012 Inactive Flagyl 500 mg tablet RxNorm: 580746 1 Tablet(s) PO TID 08/17/2012 08/23/2012 Inactive Cipro 500 mg tablet RxNorm: 169197 1 Tablet(s) PO BID 08/17/2012 08/16/2012 Inactive zolpidem 10 mg tablet RxNorm: 675535 1 Tablet(s) PO HS PRN 08/17/2012 09/15/2012 Inactive Flagyl 500 mg tablet RxNorm: 781158 1 Tablet(s) PO TID 08/17/2012 08/16/2012 Inactive alprazolam 0.25 mg tablet RxNorm: 830001 1 Tablet(s) PO QDAY PRN 08/17/2012 09/15/2012 Inactive Belle Allergy 180 mg tablet RxNorm: 389757 1 Tablet(s) PO daily 08/08/2012 02/03/2013 Inactive hydrochlorothiazide 25 mg tablet RxNorm: 924678 1/2 Tablet(s) PO daily 08/08/2012 11/05/2012 Inactive needs appt Carafate 1 gram tablet RxNorm: 112941 1 Tablet(s) PO QID mix with 10 cc water and dissolve into slurry 08/08/2012 08/21/2012 Inactive hydrocodone 10 mg-acetaminophen 325 mg tablet RxNorm: 4839710 1 Tablet(s) PO Q6 PRN 08/08/2012 01/21/2013 Inactive Synthroid 100 mcg tablet RxNorm: 427878 1 Tablet(s) PO 08/08/2012 12/02/2012 Inactive Cymbalta 60 mg capsule,delayed release RxNorm: 320497 Capsule(s) PO 07/23/2012 10/25/2012 Inactive TAKE ONE CAPSULE BY MOUTH TWICE A DAY Nexium 40 mg capsule,delayed release RxNorm: 208910 Capsule(s) PO 06/20/2012 02/14/2013 Inactive TAKE ONE CAPSULE BY MOUTH EVERY DAY Lipitor 10 mg tablet RxNorm: 218042 Tablet(s) PO 06/20/2012 01/06/2013 Inactive TAKE ONE TABLET BY MOUTH EVERY DAY hydrochlorothiazide 25 mg tablet RxNorm: 647283 1 Tablet(s) PO daily 06/19/2012 08/07/2012 Inactive needs appt alprazolam 0.25 mg tablet RxNorm: 101022 1 Tablet(s) PO QDAY PRN 06/05/2012 07/04/2012 Inactive zolpidem 10 mg tablet RxNorm: 247777 1 Tablet(s) PO HS PRN 06/05/2012 07/04/2012 Inactive zolpidem 10 mg tablet RxNorm: 821631 1 Tablet(s) PO HS PRN 04/16/2012 05/15/2012 Inactive alprazolam 0.25 mg tablet RxNorm: 259645 1 Tablet(s) PO QDAY PRN 04/16/2012 05/15/2012 Inactive Cymbalta 60 mg capsule,delayed release RxNorm: 218423 1 Capsule(s) PO BID 03/22/2012 07/19/2012 Inactive Fioricet 50 mg-325 mg-40 mg tablet RxNorm: 322391 1 Tablet(s) PO Q4 PRN 03/22/2012 11/24/2013 Inactive Bystolic 10 mg tablet RxNorm: 187276 Tablet(s) PO 03/22/2012 10/11/2012 Inactive TAKE ONE TABLET BY MOUTH EVERY DAY potassium chloride ER 10 mEq Tab RxNorm: 303808 1 Tablet(s) PO daily 02/24/2012 03/01/2012 Inactive Lasix 20 mg Tab RxNorm: 346897 1 Tablet(s) PO daily 02/22/2012 02/21/2012 Inactive KCL 10 meq RxNorm: 1 PO daily 02/22/2012 02/21/2012 Inactive potassium chloride ER 10 mEq Tab RxNorm: 851014 1 Tablet(s) PO daily 02/22/2012 02/21/2012 Inactive Lasix 20 mg Tab RxNorm: 240777 1 Tablet(s) PO daily 02/22/2012 02/28/2012 Inactive KCL 10 meq RxNorm: 1 PO daily 02/22/2012 02/22/2012 Inactive potassium chloride ER 10 mEq Tab RxNorm: 418337 1 Tablet(s) PO daily 02/22/2012 02/23/2012 Inactive Rocephin 500 mg Solution for Injection RxNorm: 0811350 Inj 02/15/2012 02/15/2012 Inactive Nexium 40 mg capsule,delayed release RxNorm: 172440 1 Capsule(s) PO daily 02/15/2012 No Stop Date Active Bystolic 10 mg Tab RxNorm: 543362 1 Tablet(s) PO daily 02/15/2012 08/12/2012 Inactive alprazolam 0.25 mg tablet RxNorm: 731138 1 Tablet(s) PO QDAY PRN 01/31/2012 02/29/2012 Inactive zolpidem 10 mg tablet RxNorm: 418916 1 Tablet(s) PO HS PRN 01/31/2012 02/29/2012 Inactive alprazolam 0.25 mg Tab RxNorm: 119577 1 Tablet(s) PO QDAY PRN 12/16/2011 01/14/2012 Inactive zolpidem 10 mg Tab RxNorm: 720079 1 Tablet(s) PO HS PRN 12/16/2011 01/14/2012 Inactive Norvasc 10 mg tablet RxNorm: 912210 1 Tablet(s) PO daily 12/02/2011 02/21/2012 Inactive Lipitor 10 mg tablet RxNorm: 573007 1 Tablet(s) PO daily 11/16/2011 05/13/2012 Inactive zolpidem 10 mg Tab RxNorm: 761011 1 Tablet(s) PO HS PRN 10/26/2011 12/15/2011 Inactive alprazolam 0.25 mg Tab RxNorm: 281886 1 Tablet(s) PO QDAY PRN 10/26/2011 12/15/2011 Inactive hydrochlorothiazide 25 mg tablet RxNorm: 698418 1 Tablet(s) PO daily 09/05/2011 03/02/2012 Inactive Synthroid 75 mcg tablet RxNorm: 649269 1 Tablet(s) PO daily 08/01/2011 02/26/2012 Inactive Abilify 2 mg Tab RxNorm: 673722 1 Tablet(s) PO QHS 08/01/2011 09/10/2012 Inactive dicyclomine 10 mg Cap RxNorm: 808377 1 Capsule(s) PO TID 08/01/2011 10/29/2011 Inactive alprazolam 0.25 mg Tab RxNorm: 507380 1 Tablet(s) PO QDAY PRN 07/26/2011 10/25/2011 Inactive Fioricet 50 mg-325 mg-40 mg tablet RxNorm: 371262 1 Tablet(s) PO Q4 PRN 07/14/2011 03/21/2012 Inactive Rocephin 500 mg Solution for Injection RxNorm: 3057911 1 Milliliter(s) Inj 07/14/2011 08/01/2011 Inactive Nexium 40 mg Capsule, delayed release RxNorm: 476066 1 Capsule(s) PO daily 05/23/2011 10/06/2011 Inactive Bystolic 10 mg tablet RxNorm: 710257 1 Tablet(s) PO daily 05/23/2011 11/18/2011 Inactive Bystolic 10 mg Tab RxNorm: 314607 1 Tablet(s) PO daily 05/23/2011 05/22/2011 Inactive alprazolam 0.25 mg Tab RxNorm: 674763 1 Tablet(s) PO QDAY PRN 05/23/2011 07/25/2011 Inactive Influenza Virus Vaccine 0.5 mL RxNorm: IM 05/23/2011 05/23/2011 Inactive zolpidem 10 mg Tab RxNorm: 470214 1 Tablet(s) PO HS PRN 05/23/2011 10/25/2011 Inactive Rocephin 500 mg Solution for Injection RxNorm: 4017708 1 Milliliter(s) Inj 05/03/2011 07/14/2011 Inactive Kenalog 40 mg/mL Susp for Injection RxNorm: 4978517 1 Milliliter(s) Inj 05/03/2011 07/14/2011 Inactive Bactrim DS 800 mg-160 mg Tab RxNorm: 021606 1 Tablet(s) PO BID 05/03/2011 08/01/2011 Inactive Bystolic 10 mg tablet RxNorm: 256898 1 Tablet(s) PO daily No Start Date Active Flonase 50 mcg/actuation nasal spray,suspension RxNorm: 1518327 2 [place] NASAL daily No Start Date 08/05/2013 Inactive Levaquin 500 mg tablet RxNorm: 062465 Tablet(s) PO No Start Date 04/19/2017 Inactive Duragesic 50 mcg/hr transdermal patch RxNorm: 813773 1 TD q72 hours No Start Date 01/13/2014 Inactive Vesicare 5 mg tablet RxNorm: 665410 1 Tablet(s) PO daily No Start Date 01/06/2015 Inactive Celebrex 200 mg capsule RxNorm: 303526 1 Capsule(s) PO daily No Start Date 04/02/2014 Inactive zolpidem 10 mg Tab RxNorm: 477873 1 Tablet(s) PO HS PRN No Start Date 05/22/2011 Inactive Zyrtec 10 mg Tab RxNorm: 4461428 1 Tablet(s) PO daily No Start Date 08/08/2012 Inactive Flonase 50 mcg/actuation nasal spray,suspension RxNorm: 5048983 1 [place] NASAL daily No Start Date 11/07/2017 Inactive 1 spray to each nostril daily Nexium 40 mg Cap RxNorm: 569745 1 Capsule(s) PO daily No Start Date 05/22/2011 Inactive ketoconazole 2 % Topical Cream RxNorm: 878227 Application TOP BID apply to affected area BID until gone No Start Date 08/30/2012 Inactive aspirin 81 mg tablet RxNorm: 669064 1 Tablet(s) PO daily No Start Date 11/13/2017 Inactive Cymbalta 60 mg capsule,delayed release RxNorm: 582199 1 Capsule(s) PO BID No Start Date 03/21/2012 Inactive alprazolam 0.25 mg Tab RxNorm: 998882 1 Tablet(s) PO QDAY PRN No Start Date 05/22/2011 Inactive baclofen 10 mg tablet RxNorm: 934792 1 Tablet(s) PO TID as needed muscle spasms No Start Date 11/14/2017 Inactive Toprol XL 100 mg 24 hr Tab RxNorm: 325541 1 Tablet(s) PO BID No Start Date 04/25/2011 Inactive Xanax 0.25 mg tablet RxNorm: 728878 1 Tablet(s) PO daily as needed No Start Date 12/27/2015 Inactive Bystolic 10 mg Tab RxNorm: 207363 1 Tablet(s) PO daily No Start Date 05/22/2011 Inactive Fioricet 50 mg-325 mg-40 mg Tab RxNorm: 134530 1 Tablet(s) PO Q4 PRN No Start Date 07/13/2011 Inactive albuterol sulfate HFA 90 mcg/Actuation Aerosol Inhaler RxNorm: 5967697 1 INH Q4 PRN No Start Date 01/06/2015 Inactive Imitrex 50 mg tablet RxNorm: 596515 1 Tablet(s) PO Q8 as needed may repeat x1 dose in 1 hour of inital dose. No Start Date 02/24/2016 Inactive dc fioricet Tessalon 200 mg Cap RxNorm: 511272 1 Capsule(s) PO Q4 PRN No Start Date 02/14/2012 Inactive Zithromax Z-Sergio 250 mg tablet RxNorm: 776384 Tablet(s) PO No Start Date 11/10/2013 Inactive hydrochlorothiazide 25 mg Tab RxNorm: 236930 1 Tablet(s) PO daily No Start Date 09/04/2011 Inactive Fish Oil 1,000 mg Cap RxNorm: 1 Capsule(s) PO TID No Start Date 11/08/2017 Inactive Deplin 15 mg Tab RxNorm: 1 Tablet(s) PO daily No Start Date 08/01/2011 Inactive Brilinta 90 mg tablet RxNorm: 1520835 1 Tablet(s) PO BID No Start Date 11/23/2015 Inactive Synthroid 75 mcg Tab RxNorm: 972257 1 Tablet(s) PO daily No Start Date 07/31/2011 Inactive ciprofloxacin 0.3 % eye drops RxNorm: 333504 2 Drop(s) ophthalmic (eye) Q2H while awake x 2 days, then Q4H x 5 days No Start Date 11/22/2017 Inactive scopolamine 1.5 mg 72 hr Transderm Patch RxNorm: 187338 1 Milligram(s) TD q72 hours No Start Date 11/25/2012 Inactive hydrocodone-acetaminophen 10 mg-325 mg tablet RxNorm: 8166629 1 Tablet(s) PO Q6 PRN No Start Date 08/07/2012 Inactive Phenergan with Codeine Syrup RxNorm: 5-10 Milliliter(s) PO Q6 PRN No Start Date 02/14/2012 Inactive Norvasc 10 mg Tab RxNorm: 002103 1 Tablet(s) PO daily No Start Date 12/01/2011 Inactive Zithromax Z-Sergio 250 mg Tab RxNorm: 280184 Tablet(s) PO No Start Date 08/01/2011 Inactive Medication Administered Medication Codes Instructions Start Date Status ceftriaxone 1 gram solution for injection RxNorm: 7673178 02/20/2019 No longer Active ceftriaxone 500 mg solution for injection RxNorm: 1467135 05/28/2018 No longer Active Kenalog 40 mg/mL suspension for injection RxNorm: 8057925 Milliliter 05/28/2018 No longer Active ceftriaxone 500 mg solution for injection RxNorm: 5368943 500Milligram 01/19/2018 No longer Active Kenalog 40 mg/mL suspension for injection RxNorm: 6758445 1Milliliter 01/19/2018 No longer Active Kenalog 40 mg/mL suspension for injection RxNorm: 1630170 1Milliliter 06/27/2017 No longer Active Kenalog 40 mg/mL suspension for injection RxNorm: 5961148 Milliliter 04/20/2017 No longer Active Kenalog 40 mg/mL suspension for injection RxNorm: 8713255 1Milliliter 03/14/2017 No longer Active ceftriaxone 500 mg solution for injection RxNorm: 7517681 1Milliliter 11/28/2016 No longer Active Kenalog 40 mg/mL suspension for injection RxNorm: 2378919 Milliliter 11/07/2016 No longer Active ceftriaxone 500 mg solution for injection RxNorm: 3370129 11/07/2016 No longer Active ceftriaxone 500 mg solution for injection RxNorm: 3569612 12/07/2015 No longer Active Kenalog 40 mg/mL suspension for injection RxNorm: 2906303 1Milliliter 11/24/2015 No longer Active ceftriaxone 500 mg solution for injection RxNorm: 0334665 Milliliter 11/24/2015 No longer Active promethazine 25 mg/mL injection solution RxNorm: 733234 Milliliter 08/27/2015 No longer Active ketorolac 60 mg/2 mL intramuscular solution RxNorm: 903320 Milliliter 08/27/2015 No longer Active Kenalog 40 mg/mL suspension for injection RxNorm: 4121601 Milliliter 08/10/2015 No longer Active ceftriaxone 500 mg solution for injection RxNorm: 3903268 08/10/2015 No longer Active ceftriaxone 500 mg solution for injection RxNorm: 2717986 1Milliliter 07/28/2015 No longer Active Kenalog 40 mg/mL suspension for injection RxNorm: 3410232 Milliliter 03/19/2015 No longer Active Kenalog 40 mg/mL suspension for injection RxNorm: 3504666 Milliliter 06/23/2014 No longer Active ceftriaxone 500 mg solution for injection RxNorm: 142059 06/23/2014 No longer Active Rocephin 500 mg solution for injection RxNorm: 932564 1mlMilliliter 09/24/2013 No longer Active Rocephin 500 mg solution for injection RxNorm: 058203 1Milliliter 09/19/2013 No longer Active Rocephin 500 mg solution for injection RxNorm: 6805170 1 07/10/2013 No longer Active Kenalog 40 mg/mL suspension for injection RxNorm: 5962608 1Milliliter 07/10/2013 No longer Active Kenalog 40 mg/mL Susp for Injection RxNorm: 4352490 1Milliliter 09/24/2012 No longer Active Rocephin 500 mg Solution for Injection RxNorm: 3530826 02/15/2012 No longer Active Influenza Virus Vaccine 0.5 mL RxNorm: 05/23/2011 No longer Active Immunizations Vaccine Codes Date Status Influenza CVX: 141 06/24/2013 completed Pneumococcal CVX: 33 06/24/2013 completed PPD Unknown 05/13/2013 completed Assessments Condition Codes Effective Dates Cellulitis of left upper limb ICD-10: L03.114 ICD-9: 682.3 02/25/2019 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.1 ICD-9: 564.5 01/29/2019 Essential (primary) hypertension ICD-10: I10 ICD-9: 401.1 11/16/2018 Mixed hyperlipidemia ICD-10: E78.2 ICD-9: 272.4 10/30/2018 Hypothyroidism, unspecified ICD-10: E03.9 ICD-9: 244.9 10/30/2018 Other allergic rhinitis ICD-10: J30.89 ICD-9: 477.8 10/08/2018 Other mucopurulent conjunctivitis, bilateral ICD-10: H10.023 ICD-9: 372.03 10/08/2018 Generalized anxiety disorder ICD-10: F41.1 ICD-9: 300.00 07/16/2018 Low back pain ICD-10: M54.5 ICD-9: 724.2 07/10/2018 Acute recurrent maxillary sinusitis ICD-10: J01.01 ICD-9: 461.0 07/10/2018 Frequency of micturition ICD-10: R35.0 ICD-9: 788.41 07/10/2018 Laceration without foreign body, right lower leg, subsequent encounter ICD-10: S81.811D ICD-9: V58.89 02/08/2018 Laceration without foreign body, left lower leg, subsequent encounter ICD-10: S81.812D ICD-9: V58.89 02/08/2018 Cellulitis of left lower limb ICD-10: L03.116 ICD-9: 682.6 02/07/2018 Cellulitis of right lower limb ICD-10: L03.115 ICD-9: 682.6 02/07/2018 Laceration without foreign body, right lower leg, initial encounter ICD-10: S81.811A ICD-9: 891.0 02/07/2018 Laceration without foreign body, left lower leg, initial encounter ICD-10: S81.812A ICD-9: 891.0 02/07/2018 Primary generalized (osteo)arthritis ICD-10: M15.0 ICD-9: 715.09 01/19/2018 Obstructive sleep apnea (adult) (pediatric) ICD-10: G47.33 ICD-9: 780.57 01/19/2018 Encounter for general adult medical examination with abnormal findings ICD-10: Z00.01 ICD-9: V70.0 11/23/2017 Other acute sinusitis ICD-10: J01.80 ICD-9: 461.8 09/12/2017 Diarrhea, unspecified ICD-10: R19.7 ICD-9: 787.91 09/12/2017 Generalized abdominal pain ICD-10: R10.84 ICD-9: 789.07 09/12/2017 Acute laryngopharyngitis ICD-10: J06.0 ICD-9: 465.0 07/25/2017 Cough ICD-10: R05 ICD-9: 786.2 07/25/2017 Wheezing ICD-10: R06.2 ICD-9: 786.07 07/25/2017 Cervicalgia ICD-10: M54.2 ICD-9: 723.1 06/27/2017 Chronic maxillary sinusitis ICD-10: J32.0 ICD-9: 473.0 05/08/2017 Gastro-esophageal reflux disease without esophagitis ICD-10: K21.9 ICD-9: 530.81 05/08/2017 Allergic rhinitis due to pollen ICD-10: J30.1 ICD-9: 477.9 04/20/2017 Epigastric pain ICD-10: R10.13 ICD-9: 536.8 02/20/2017 Left upper quadrant pain ICD-10: R10.12 ICD-9: 789.02 02/20/2017 Left lower quadrant pain ICD-10: R10.32 ICD-9: 789.04 02/20/2017 Major depressive disorder, recurrent, moderate ICD-10: F33.1 ICD-9: 296.32 02/06/2017 Actinic keratosis ICD-10: L57.0 ICD-9: 702.0 02/06/2017 Generalized anxiety disorder ICD-10: F41.1 ICD-9: 300.02 02/06/2017 Dysuria ICD-10: R30.0 ICD-9: 788.1 11/28/2016 Other specified hypothyroidism ICD-10: E03.8 ICD-9: 244.8 11/07/2016 Essential (primary) hypertension ICD-10: I10 ICD-9: 401.9 03/15/2016 Headache ICD-10: R51 ICD-9: 784.0 03/14/2016 Laceration without foreign body, left lower leg, initial encounter ICD-10: S81.812A ICD-9: 894.0 02/22/2016 Allergic rhinitis due to pollen ICD-10: J30.1 ICD-9: 477.0 12/07/2015 Generalized intra-abdominal and pelvic swelling, mass and lump ICD-10: R19.07 ICD-9: 789.37 11/24/2015 Other migraine, intractable, without status migrainosus ICD-10: G43.819 ICD-9: 346.81 08/27/2015 Candidal stomatitis ICD-10: B37.0 ICD-9: 112.0 08/10/2015 Superficial foreign body of left hand, initial encounter ICD- 10: S60.552A ICD-9: 914.6 07/28/2015 Tinea cruris ICD-10: B35.6 ICD-9: 110.3 06/11/2015 Abnormal levels of other serum enzymes ICD-10: R74.8 ICD-9: 790.5 06/11/2015 Hypothyroid ICD-9: 244.9 03/19/2015 Sleep apnea ICD-9: 780.57 03/19/2015 Anxiety ICD-9: 300.00 03/19/2015 ESSENTIAL HYPERTENSION ICD-9: 401.9 03/19/2015 ALLERGIC RHINITIS ICD-9: 477.9 03/19/2015 ACUTE SINUSITIS ICD-9: 461.9 01/07/2015 OTALGIA ICD-9: 388.70 01/07/2015 Conjunctivitis ICD-9: 372.30 01/07/2015 Noninfected skin tear of leg ICD-9: 891.0 08/05/2014 Other screening mammogram ICD-9: V76.12 07/17/2014 Chronic maxillary sinusitis ICD-9: 473.0 06/23/2014 Headache ICD-9: 784.0 06/05/2014 Spasm of muscle ICD-9: 728.85 06/05/2014 Neck pain ICD-9: 723.1 06/05/2014 Abrasion of right leg ICD-9: 916.0 04/03/2014 Exposure to scabies ICD-9: V01.89 03/07/2014 Tinea corporis ICD-9: 110.5 03/07/2014 Dysuria ICD-9: 788.1 02/11/2014 OSTEOARTH NOS-UNSPEC ICD-9: 715.90 11/21/2013 Lumbago ICD-9: 724.2 11/21/2013 History of urinary tract infection ICD-9: V13.02 10/15/2013 DEPRESSIVE DISORDER NEC ICD-9: 311 09/24/2013 Paronychia ICD-9: 681.9 09/24/2013 Cellulitis ICD-9: 682.9 09/19/2013 Thrush ICD-9: 112.0 08/05/2013 Insomnia ICD-9: 780.52 07/10/2013 COUGH ICD-9: 786.2 07/10/2013 ACUTE MAXILLARY SINUSITIS ICD-9: 461.0 07/10/2013 ESOPHAGEAL REFLUX ICD-9: 530.81 07/10/2013 Bronchitis ICD-9: 490 07/10/2013 ENCNTR LONG-RX USE NEC ICD-9: V58.69 04/30/2013 HYPERLIPIDEMIA ICD-9: 272.4 04/30/2013 Abnormal glucose ICD-9: 790.29 04/30/2013 Hip pain ICD-9: 719.45 12/03/2012 Knee pain, bilateral ICD-9: 719.46 12/03/2012 JOINT PAIN-MULT JOINTS ICD-9: 719.49 08/08/2012 EDEMA ICD-9: 782.3 02/16/2012 Urinary tract infection ICD-9: 599.0 02/15/2012 Urinary frequency ICD-9: 788.41 02/15/2012 Fatigue ICD-9: 780.79 02/15/2012 Abdominal pain ICD-9: 789.00 11/10/2011 Nausea ICD-9: 787.02 11/10/2011 Irritable bowel disease ICD-9: 564.1 08/01/2011 DIARRHEA ICD-9: 787.91 08/01/2011 VACCIN FOR INFLUENZA ICD-9: V04.81 05/23/2011 SLEEP DISTURBANCES ICD-9: 780.50 05/23/2011 GENERALIZED ANXIETY DISEASE ICD-9: 300.02 05/23/2011 Reason For Visit Reason For Visit Effective Dates Notes skin lesion 02/25/2019 skin lesion 02/20/2019 diarrhea 01/29/2019 hypertension 11/13/2018 hypertension 10/30/2018 eye discharge 10/08/2018 hypertension 07/16/2018 nasal discharge 07/10/2018 sinus congestion 05/28/2018 sores 02/08/2018 sores 02/07/2018 chest congestion 01/19/2018 Annual Medicare Wellness Exam 11/23/2017 abdominal pain 09/12/2017 chest congestion 07/25/2017 cough 06/27/2017 sinus congestion 05/08/2017 sinus congestion 03/14/2017 abdominal pain 02/20/2017 depression 02/06/2017 skin lesion 12/05/2016 sinusitis 11/28/2016 Annual Medicare Wellness Exam 11/07/2016 sinus congestion 08/15/2016 sinus congestion 06/07/2016 hypertension 03/14/2016 skin lesion 02/22/2016 sinus congestion 12/07/2015 mole check 11/24/2015 headache 08/27/2015 cough 08/10/2015 sores 07/28/2015 rash 06/11/2015 back pain 03/19/2015 earache 01/07/2015 eye discharge 09/23/2014 laceration of the leg 08/05/2014 Right lateral and Left lateral leg cough 06/23/2014 clear neck pain 06/05/2014 headache 04/03/2014 from fall but has had 2 back surgeries rash 03/07/2014 back pain 11/21/2013 cellulitis 09/24/2013 finger pain 09/19/2013 eye discharge 08/05/2013 earache 07/10/2013 hypertension 06/03/2013 hypertension 05/07/2013 knee pain 12/03/2012 dysuria 09/24/2012 fatigue 09/10/2012 fatigue 08/08/2012 edema 02/15/2012 hypertension 11/10/2011 hypertension 08/01/2011 sore throat 07/14/2011 blood pressure followup 05/23/2011 cough 05/03/2011 hypertension 04/25/2011 Results Observation Observation Code Item Item Code Result Date Tsh Ord6 TSH (3rd IS) 4.03 uIU/mL 02/15/2019 Free T4 [id number] FREE T4 0.71 ng/dL 02/15/2019 Lipid Ord30 CHOL 193 mg/dL 01/01/2019 Lipid Ord30 HDL 45.0 mg/dl 01/01/2019 Lipid Ord30 TRIG 111 mg/dL 01/01/2019 Lipid Ord30 LDL 126 mg/dL 01/01/2019 Lipid Ord30 C/HDL 4.3 Ratio 01/01/2019 Comp Metabolic Jzt166 NA 140 mEq/L 01/01/2019 Comp Metabolic Jtz824 K 3.8 mEq/L 01/01/2019 Comp Metabolic Uhh729 CL 103 mEq/L 01/01/2019 Comp Metabolic Crb916 CO2 28.0 mEq/L 01/01/2019 Comp Metabolic Zlt658 ANION GAP 13 01/01/2019 Comp Metabolic Gkq823 GLUCOSE 93 mg/dL 01/01/2019 Comp Metabolic Zmw408 Creat 0.7 mg/dL 01/01/2019 Comp Metabolic Jar262 eGFR 86 ml/min/1.73m2 01/01/2019 Comp Metabolic Dcs389 BUN 21 mg/dL 01/01/2019 Comp Metabolic Vkx076 B/C Ratio 29.6 Ratio 01/01/2019 Comp Metabolic Ews613 CALCIUM 9.4 mg/dL 01/01/2019 Comp Metabolic Mkx275 ALK PHOS 67 U/L 01/01/2019 Comp Metabolic Isz845 AST(SGOT) 27 U/L 01/01/2019 Comp Metabolic Xaj591 ALT(SGPT) 30 U/L 01/01/2019 Comp Metabolic Rah475 BILI T 0.5 mg/dL 01/01/2019 Comp Metabolic Zyb133 ALBUMIN 4.0 g/dL 01/01/2019 Comp Metabolic Rzp973 TPRO 6.8 g/dL 01/01/2019 Comp Metabolic Xvg273 GLOB 2.8 g/dL 01/01/2019 Comp Metabolic Tge793 A/G Ratio 1.4 Ratio 01/01/2019 Comp Metabolic Hma809 Osmo 282 mOsmo 01/01/2019 Free T4 Nkg963 FREE T4 0.71 ng/dL 10/31/2018 Tsh Ord6 TSH (3rd IS) 7.87 uIU/mL 10/31/2018 Lipid Ord30 CHOL 170 mg/dL 10/31/2018 Lipid Ord30 HDL 53.0 mg/dl 10/31/2018 Lipid Ord30 TRIG 85 mg/dL 10/31/2018 Lipid Ord30 LDL 100 mg/dL 10/31/2018 Lipid Ord30 C/HDL 3.2 Ratio 10/31/2018 Comp Metabolic Din177 NA 142 mEq/L 10/31/2018 Comp Metabolic Bwt007 K 4.0 mEq/L 10/31/2018 Comp Metabolic Gty606 CL 106 mEq/L 10/31/2018 Comp Metabolic Jhl315 CO2 27.0 mEq/L 10/31/2018 Comp Metabolic Ino442 ANION GAP 13 10/31/2018 Comp Metabolic Zyo065 GLUCOSE 114 mg/dL 10/31/2018 Comp Metabolic Qsw756 Creat 0.7 mg/dL 10/31/2018 Comp Metabolic Bib669 eGFR 90 ml/min/1.73m2 10/31/2018 Comp Metabolic Ncd612 BUN 21 mg/dL 10/31/2018 Comp Metabolic Fol236 B/C Ratio 30.9 Ratio 10/31/2018 Comp Metabolic Uww374 CALCIUM 9.7 mg/dL 10/31/2018 Comp Metabolic Nvv270 ALK PHOS 63 U/L 10/31/2018 Comp Metabolic Rvc472 AST(SGOT) 24 U/L 10/31/2018 Comp Metabolic Ajw853 ALT(SGPT) 21 U/L 10/31/2018 Comp Metabolic Mex168 BILI T 0.6 mg/dL 10/31/2018 Comp Metabolic Cgd110 ALBUMIN 4.1 g/dL 10/31/2018 Comp Metabolic Qtg618 TPRO 6.6 g/dL 10/31/2018 Comp Metabolic Wao923 GLOB 2.5 g/dL 10/31/2018 Comp Metabolic Gkz132 A/G Ratio 1.7 Ratio 10/31/2018 Comp Metabolic Ofv674 Osmo 287 mOsmo 10/31/2018 Cbc With Differential Ord2 WBC 7.00 K/ul 10/31/2018 Cbc With Differential Ord2 RBC 4.86 M/ul 10/31/2018 Cbc With Differential Ord2 HGB 15.0 g/dl 10/31/2018 Cbc With Differential Ord2 Neut% 57.5 % 10/31/2018 Cbc With Differential Ord2 HCT 45.4 % 10/31/2018 Cbc With Differential Ord2 MCV 93.4 fl 10/31/2018 Cbc With Differential Ord2 Lymph% 26.9 % 10/31/2018 Cbc With Differential Ord2 MCH 30.9 pg 10/31/2018 Cbc With Differential Ord2 [place]% 8.0 % 10/31/2018 Cbc With Differential Ord2 MCHC 33.0 pg 10/31/2018 Cbc With Differential Ord2 Eos% 6.7 % 10/31/2018 Cbc With Differential Ord2 PLT 195 K/ul 10/31/2018 Cbc With Differential Ord2 Baso% 0.9 % 10/31/2018 Cbc With Differential Ord2 Neut ABS# 4.03 K/ul 10/31/2018 Cbc With Differential Ord2 RDW 13.0 % 10/31/2018 Cbc With Differential Ord2 Lymph ABS# 1.88 K/ul 10/31/2018 Cbc With Differential Ord2 [place] ABS# 0.6 K/ul 10/31/2018 Cbc With Differential Ord2 Eos ABS# 0.5 K/ul 10/31/2018 Cbc With Differential Ord2 Baso ABS# 0.1 K/ul 10/31/2018 Comp Metabolic Oje681 NA 141 mEq/L 09/12/2017 Comp Metabolic Joi403 K 4.1 mEq/L 09/12/2017 Comp Metabolic Bav692 CL 105 mEq/L 09/12/2017 Comp Metabolic Thc147 CO2 30.0 mEq/L 09/12/2017 Comp Metabolic Dao955 ANION GAP 10 09/12/2017 Comp Metabolic Awf533 GLUCOSE 97 mg/dL 09/12/2017 Comp Metabolic Xte539 Creat 0.7 mg/dL 09/12/2017 Comp Metabolic Vpf996 eGFR 91 ml/min/1.73m2 09/12/2017 Comp Metabolic Syn086 BUN 18 mg/dL 09/12/2017 Comp Metabolic Fet417 B/C Ratio 26.5 Ratio 09/12/2017 Comp Metabolic Evr467 CALCIUM 9.7 mg/dL 09/12/2017 Comp Metabolic Xbr631 ALK PHOS 60 U/L 09/12/2017 Comp Metabolic Qts002 AST(SGOT) 22 U/L 09/12/2017 Comp Metabolic Sve350 ALT(SGPT) 23 U/L 09/12/2017 Comp Metabolic Izo173 BILI T 0.4 mg/dL 09/12/2017 Comp Metabolic Yjn894 ALBUMIN 3.8 g/dL 09/12/2017 Comp Metabolic Ygq412 TPRO 6.4 g/dL 09/12/2017 Comp Metabolic Otn887 GLOB 2.6 g/dL 09/12/2017 Comp Metabolic Xrx450 A/G Ratio 1.5 Ratio 09/12/2017 Comp Metabolic Pzr748 Osmo 283 mOsmo 09/12/2017 Cbc With Differential Ord2 WBC 7.90 K/ul 09/12/2017 Cbc With Differential Ord2 RBC 4.99 M/ul 09/12/2017 Cbc With Differential Ord2 HGB 15.3 g/dl 09/12/2017 Cbc With Differential Ord2 HCT 47.5 % 09/12/2017 Cbc With Differential Ord2 Neut% 57.0 % 09/12/2017 Cbc With Differential Ord2 MCV 95.2 fl 09/12/2017 Cbc With Differential Ord2 Lymph% 31.1 % 09/12/2017 Cbc With Differential Ord2 MCH 30.7 pg 09/12/2017 Cbc With Differential Ord2 [place]% 7.2 % 09/12/2017 Cbc With Differential Ord2 MCHC 32.2 pg 09/12/2017 Cbc With Differential Ord2 Eos% 3.9 % 09/12/2017 Cbc With Differential Ord2 PLT 232 K/ul 09/12/2017 Cbc With Differential Ord2 Baso% 0.8 % 09/12/2017 Cbc With Differential Ord2 RDW 13.2 % 09/12/2017 Cbc With Differential Ord2 Neut ABS# 4.50 K/ul 09/12/2017 Cbc With Differential Ord2 Lymph ABS# 2.46 K/ul 09/12/2017 Cbc With Differential Ord2 [place] ABS# 0.6 K/ul 09/12/2017 Cbc With Differential Ord2 Eos ABS# 0.3 K/ul 09/12/2017 Cbc With Differential Ord2 Baso ABS# 0.1 K/ul 09/12/2017 Urine Culture Ucult Preliminary NO Growth Day 1 11/30/2016 Urine Culture Ucult Complete NO Growth Day 2 11/30/2016 Lipid Ord30 CHOL 206 mg/dL 11/07/2016 Lipid Ord30 HDL 53.0 mg/dl 11/07/2016 Lipid Ord30 TRIG 144 mg/dL 11/07/2016 Lipid Ord30 LDL 124 mg/dL 11/07/2016 Lipid Ord30 C/HDL 3.9 Ratio 11/07/2016 Cbc With Differential Ord2 WBC 9.22 K/ul 11/07/2016 Cbc With Differential Ord2 RBC 4.87 M/ul 11/07/2016 Cbc With Differential Ord2 HGB 15.3 g/dl 11/07/2016 Cbc With Differential Ord2 HCT 47.0 % 11/07/2016 Cbc With Differential Ord2 Neut% 63.7 % 11/07/2016 Cbc With Differential Ord2 MCV 96.5 fl 11/07/2016 Cbc With Differential Ord2 Lymph% 26.9 % 11/07/2016 Cbc With Differential Ord2 MCH 31.4 pg 11/07/2016 Cbc With Differential Ord2 [place]% 6.1 % 11/07/2016 Cbc With Differential Ord2 MCHC 32.6 pg 11/07/2016 Cbc With Differential Ord2 Eos% 2.8 % 11/07/2016 Cbc With Differential Ord2 PLT 231 K/ul 11/07/2016 Cbc With Differential Ord2 Baso% 0.5 % 11/07/2016 Cbc With Differential Ord2 RDW 13.7 % 11/07/2016 Cbc With Differential Ord2 Neut ABS# 5.87 K/ul 11/07/2016 Cbc With Differential Ord2 Lymph ABS# 2.48 K/ul 11/07/2016 Cbc With Differential Ord2 [place] ABS# 0.6 K/ul 11/07/2016 Cbc With Differential Ord2 Eos ABS# 0.3 K/ul 11/07/2016 Cbc With Differential Ord2 Baso ABS# 0.1 K/ul 11/07/2016 Comp Metabolic Syj041 NA 139 mEq/L 11/07/2016 Comp Metabolic Rql929 K 3.8 mEq/L 11/07/2016 Comp Metabolic Ehk483 CL 106 mEq/L 11/07/2016 Comp Metabolic Ofk781 CO2 25.0 mEq/L 11/07/2016 Comp Metabolic Huh595 ANION GAP 12 11/07/2016 Comp Metabolic Gcn381 GLUCOSE 98 mg/dL 11/07/2016 Comp Metabolic Yve539 Creat 0.8 mg/dL 11/07/2016 Comp Metabolic Ffa457 eGFR 71 ml/min/1.73m2 11/07/2016 Comp Metabolic Aiw093 BUN 36 mg/dL 11/07/2016 Comp Metabolic Ymm571 B/C Ratio 42.9 Ratio 11/07/2016 Comp Metabolic Bgf519 CALCIUM 9.9 mg/dL 11/07/2016 Comp Metabolic Oqw211 ALK PHOS 57 U/L 11/07/2016 Comp Metabolic Heb976 AST(SGOT) 24 U/L 11/07/2016 Comp Metabolic Cbh004 ALT(SGPT) 28 U/L 11/07/2016 Comp Metabolic Kfd835 BILI T 0.4 mg/dL 11/07/2016 Comp Metabolic Ynz473 ALBUMIN 4.2 g/dL 11/07/2016 Comp Metabolic Rtb254 TPRO 7.0 g/dL 11/07/2016 Comp Metabolic Dho244 GLOB 2.8 g/dL 11/07/2016 Comp Metabolic Nqa874 A/G Ratio 1.5 Ratio 11/07/2016 Comp Metabolic Zux610 Osmo 286 mOsmo 11/07/2016 Free T4 Pqh987 FREE T4 0.75 ng/dL 11/07/2016 Tsh Ord6 hTSH II 3.46 uIU/mL 11/07/2016 Comp Metabolic Cex676 NA 138 mEq/L 05/10/2016 Comp Metabolic Rsq883 K 3.8 mEq/L 05/10/2016 Comp Metabolic Iix205 CL 102 mEq/L 05/10/2016 Comp Metabolic Rqw651 CO2 29.0 mEq/L 05/10/2016 Comp Metabolic Rbs440 ANION GAP 11 05/10/2016 Comp Metabolic Hek869 GLUCOSE 107 mg/dL 05/10/2016 Comp Metabolic Snt523 Creat 0.7 mg/dL 05/10/2016 Comp Metabolic Amh417 eGFR 93 ml/min/1.73m2 05/10/2016 Comp Metabolic Vzs494 BUN 18 mg/dL 05/10/2016 Comp Metabolic Jsy022 B/C Ratio 26.9 Ratio 05/10/2016 Comp Metabolic Ite282 CALCIUM 9.8 mg/dL 05/10/2016 Comp Metabolic Eaf912 ALK PHOS 60 U/L 05/10/2016 Comp Metabolic Ldb929 AST(SGOT) 21 U/L 05/10/2016 Comp Metabolic Ajl349 ALT(SGPT) 23 U/L 05/10/2016 Comp Metabolic Jov849 BILI T 0.5 mg/dL 05/10/2016 Comp Metabolic Ikx685 ALBUMIN 4.1 g/dL 05/10/2016 Comp Metabolic Bsa342 TPRO 6.7 g/dL 05/10/2016 Comp Metabolic Fit553 GLOB 2.7 g/dL 05/10/2016 Comp Metabolic Rqk136 A/G Ratio 1.5 Ratio 05/10/2016 Comp Metabolic Wfz212 Osmo 278 mOsmo 05/10/2016 Lipid Ord30 CHOL 169 mg/dL 05/10/2016 Lipid Ord30 HDL 50.0 mg/dl 05/10/2016 Lipid Ord30 TRIG 161 mg/dL 05/10/2016 Lipid Ord30 LDL 87 mg/dL 05/10/2016 Lipid Ord30 C/HDL 3.4 Ratio 05/10/2016 Comp Metabolic Sew764 NA 137 mEq/L 06/12/2015 Comp Metabolic Vsp791 K 3.8 mEq/L 06/12/2015 Comp Metabolic Jbw665 CL 104 mEq/L 06/12/2015 Comp Metabolic Dqc001 CO2 24.0 mEq/L 06/12/2015 Comp Metabolic Wmo355 ANION GAP 13 06/12/2015 Comp Metabolic Ioq851 GLUCOSE 92 mg/dL 06/12/2015 Comp Metabolic Xyd504 Creat 0.7 mg/dL 06/12/2015 Comp Metabolic Cmx499 eGFR 87 ml/min/1.73m2 06/12/2015 Comp Metabolic Zxi889 BUN 31 mg/dL 06/12/2015 Comp Metabolic Chz810 B/C Ratio 43.7 Ratio 06/12/2015 Comp Metabolic Art406 CALCIUM 10.0 mg/dL 06/12/2015 Comp Metabolic Vcc642 ALK PHOS 58 U/L 06/12/2015 Comp Metabolic Pef997 AST(SGOT) 32 U/L 06/12/2015 Comp Metabolic Hvy669 ALT(SGPT) 33 U/L 06/12/2015 Comp Metabolic Bgb439 BILI T 0.5 mg/dL 06/12/2015 Comp Metabolic Dzi483 ALBUMIN 4.1 g/dL 06/12/2015 Comp Metabolic Iux654 TPRO 6.6 g/dL 06/12/2015 Comp Metabolic Cgm120 GLOB 2.5 g/dL 06/12/2015 Comp Metabolic Hue161 A/G Ratio 1.6 Ratio 06/12/2015 Comp Metabolic Cuf076 Osmo 280 mOsmo 06/12/2015 Cbc With Differential Ord2 WBC 9.5 K/uL 06/12/2015 Cbc With Differential Ord2 LYM 2.9 K/uL 06/12/2015 Cbc With Differential Ord2 LYM% 30.8 % 06/12/2015 Cbc With Differential Ord2 NEUT/GRAN 4.1 K/uL 06/12/2015 Cbc With Differential Ord2 NEUT/GRAN % 42.8 % 06/12/2015 Cbc With Differential Ord2 MID 2.5 K/uL 06/12/2015 Cbc With Differential Ord2 MID% 26.4 % 06/12/2015 Cbc With Differential Ord2 RBC 4.56 M/uL 06/12/2015 Cbc With Differential Ord2 HGB 14.3 g/dL 06/12/2015 Cbc With Differential Ord2 HCT 44.6 % 06/12/2015 Cbc With Differential Ord2 MCV 98 fL 06/12/2015 Cbc With Differential Ord2 MCH 31 pg 06/12/2015 Cbc With Differential Ord2 MCHC 32 g/dL 06/12/2015 Cbc With Differential Ord2 PLT 260 K/uL 06/12/2015 Cbc With Differential Ord2 RDW 14.2 % 06/12/2015 CBC [id number] WBC 8.7 10e9/L 04/30/2013 CBC 3031776 RBC 4.63 10e12/L 04/30/2013 CBC 0088676 HGB 14.1 g/dL 04/30/2013 CBC 2746470 HCT DET 42.2 % 04/30/2013 CBC [id number] MCV 91.1 fL 04/30/2013 CBC 6004539 MCH 30.5 pg 04/30/2013 CBC 5774580 MCHC 33.4 g/dL 04/30/2013 CBC 8775359 PLT 248 10e9/L 04/30/2013 CBC 8596016 MPV 12.1 fL 04/30/2013 CBC 9315172 LARA % 59.0 % 04/30/2013 CBC 6543240 LY % 27.6 % 04/30/2013 CBC 5570005 MON % 8.0 % 04/30/2013 CBC 2980667 EOS % 4.8 % 04/30/2013 CBC 1995585 BASO % 0.6 % 04/30/2013 CBC 2465629 RDW 13.3 % 04/30/2013 CBC 0650472 ABS LARA 5.13 10e9/L 04/30/2013 CBC 7535892 ABS LYMPH 2.40 10e9/L 04/30/2013 CBC 2639819 ABS MONO 0.70 10e9/L 04/30/2013 CBC 9029272 ABS EOS 0.42 10e9/L 04/30/2013 CBC 5251769 ABS BASO 0.05 10e9/L 04/30/2013 CBC 2426869 RDW-SD 43.1 fL 04/30/2013 TSH 6576462 TSH 4.339 uIU/ML 04/30/2013 A1C HPLC 8775242 A1C HPLC 47433-3 5.6 % 04/30/2013 FREE T4 4865299 FREE T4 0.84 NG/DL 04/30/2013 GFR CALC 0981381 GFR AA >60 ML/MIN 04/30/2013 GFR CALC 6495143 GFR NON-AA >60 ML/MIN 04/30/2013 CHEM 14 9890941 AST 22 U/L 04/30/2013 CHEM 14 9204618 ALT 22 IU/L 04/30/2013 CHEM 14 3669550 BUN 24 MG/DL 04/30/2013 CHEM 14 9132622 ALBUMIN 4.2 GM/DL 04/30/2013 CHEM 14 7310536 CHLORIDE 107 MMOL/L 04/30/2013 CHEM 14 4768091 BILI TOT 0.3 MG/DL 04/30/2013 CHEM 14 9998156 ALK PHOS 88 U/L 04/30/2013 CHEM 14 1229905 SODIUM 141 MMOL/L 04/30/2013 CHEM 14 1456498 CREATININE 0.60 MG/DL 04/30/2013 CHEM 14 9920286 CALCIUM 9.9 MG/DL 04/30/2013 CHEM 14 0287590 POTASSIUM 3.7 MMOL/L 04/30/2013 CHEM 14 0257789 PROT TOT 6.6 GM/DL 04/30/2013 CHEM 14 0433145 GLUCOSE 123 MG/DL 04/30/2013 CHEM 14 1834783 BICARB 25 MMOL/L 04/30/2013 CHEM 14 7664730 ANION GAP 9 MEQ/L 04/30/2013 LIPID GRP HDL TEST 46 MG/DL 04/30/2013 LIPID GRP TRIG 148 MG/DL 04/30/2013 LIPID GRP TEST LDL 75 MG/DL 04/30/2013 LIPID GRP CHOL 151 MG/DL 04/30/2013 LIPID GRP RCHOL/HDL 3.28 RATIO 04/30/2013 TSH 0511289 TSH 3.341 uIU/ML 11/29/2012 CBC 9143402 WBC 8.4 10e9/L 11/29/2012 CBC 8256031 RBC 4.77 10e12/L 11/29/2012 CBC 0018276 HGB 14.9 g/dL 11/29/2012 CBC 5654118 HCT DET 44.2 % 11/29/2012 CBC 6976673 MCV 92.7 fL 11/29/2012 CBC 8355836 MCH 31.2 pg 11/29/2012 CBC 4128495 MCHC 33.7 g/dL 11/29/2012 CBC 9338962 PLT 253 10e9/L 11/29/2012 CBC 3734302 MPV 11.8 fL 11/29/2012 CBC 2351069 LARA % 54.9 % 11/29/2012 CBC 3995325 LY % 29.0 % 11/29/2012 CBC 4114176 MON % 10.4 % 11/29/2012 CBC 2214678 EOS % 5.1 % 11/29/2012 CBC 2341649 BASO % 0.6 % 11/29/2012 CBC 8666662 RDW 13.8 % 11/29/2012 CBC 8952476 ABS LARA 4.61 10e9/L 11/29/2012 CBC 1766946 ABS LYMPH 2.44 10e9/L 11/29/2012 CBC 8089640 ABS MONO 0.87 10e9/L 11/29/2012 CBC 9441633 ABS EOS 0.43 10e9/L 11/29/2012 CBC 6741902 ABS BASO 0.05 10e9/L 11/29/2012 CBC 3879376 RDW-SD 45.9 fL 11/29/2012 CHEM 14 5202966 AST 25 U/L 11/29/2012 CHEM 14 7634795 ALT 26 IU/L 11/29/2012 CHEM 14 6037924 BUN 25 MG/DL 11/29/2012 CHEM 14 5400585 ALBUMIN 4.4 GM/DL 11/29/2012 CHEM 14 5413338 CHLORIDE 106 MMOL/L 11/29/2012 CHEM 14 2550050 BILI TOT 0.4 MG/DL 11/29/2012 CHEM 14 8992133 ALK PHOS 86 U/L 11/29/2012 CHEM 14 6017932 SODIUM 141 MMOL/L 11/29/2012 CHEM 14 3919795 CREATININE 0.80 MG/DL 11/29/2012 CHEM 14 0888492 CALCIUM 9.7 MG/DL 11/29/2012 CHEM 14 9434876 POTASSIUM 4.0 MMOL/L 11/29/2012 CHEM 14 8985881 PROT TOT 6.6 GM/DL 11/29/2012 CHEM 14 7285498 GLUCOSE 112 MG/DL 11/29/2012 CHEM 14 3966486 BICARB 29 MMOL/L 11/29/2012 CHEM 14 2599531 ANION GAP 6 MEQ/L 11/29/2012 A1C HPLC 8153261 A1C HPLC 75661-6 5.5 % 11/29/2012 LIPID GRP HDL TEST 54 MG/DL 11/29/2012 LIPID GRP TRIG 77 MG/DL 11/29/2012 LIPID GRP TEST LDL 78 MG/DL 11/29/2012 LIPID GRP CHOL 147 MG/DL 11/29/2012 LIPID GRP RCHOL/HDL 2.72 RATIO 11/29/2012 FREE T4 [id number] FREE T4 1.23 NG/DL 11/29/2012 GFR CALC 1653363 GFR AA >60 ML/MIN 11/29/2012 GFR CALC 2334390 GFR NON-AA >60 ML/MIN 11/29/2012 CHEM 14 9345006 AST 23 U/L 08/07/2012 CHEM 14 5584928 ALT 34 IU/L 08/07/2012 CHEM 14 2281199 BUN 26 MG/DL 08/07/2012 CHEM 14 5187520 ALBUMIN 4.4 GM/DL 08/07/2012 CHEM 14 2920238 CHLORIDE 105 MMOL/L 08/07/2012 CHEM 14 7405297 BILI TOT 0.5 MG/DL 08/07/2012 CHEM 14 6228200 ALK PHOS 79 U/L 08/07/2012 CHEM 14 7122909 SODIUM 140 MMOL/L 08/07/2012 CHEM 14 2022779 CREATININE 0.71 MG/DL 08/07/2012 CHEM 14 2494621 CALCIUM 10.4 MG/DL 08/07/2012 CHEM 14 1430006 POTASSIUM 3.8 MMOL/L 08/07/2012 CHEM 14 7034519 PROT TOT 6.8 GM/DL 08/07/2012 CHEM 14 4036163 GLUCOSE 104 MG/DL 08/07/2012 CHEM 14 8414704 BICARB 27 MMOL/L 08/07/2012 CHEM 14 3698917 ANION GAP 8 MEQ/L 08/07/2012 A1C HPLC 5828769 A1C HPLC 37214-5 5.4 % 08/07/2012 FREE T4 3185407 FREE T4 1.11 NG/DL 08/07/2012 LIPID GRP HDL TEST 50 MG/DL 08/07/2012 LIPID GRP TRIG 127 MG/DL 08/07/2012 LIPID GRP TEST LDL 93 MG/DL 08/07/2012 LIPID GRP CHOL 168 MG/DL 08/07/2012 LIPID GRP RCHOL/HDL 3.36 RATIO 08/07/2012 CBC 6702884 WBC 8.7 10e9/L 08/07/2012 CBC 6994743 RBC 4.67 10e12/L 08/07/2012 CBC 5055308 HGB 14.4 g/dL 08/07/2012 CBC 2665517 HCT DET 42.8 % 08/07/2012 CBC 7147460 MCV 91.6 fL 08/07/2012 CBC 5426983 MCH 30.8 pg 08/07/2012 CBC 6180345 MCHC 33.6 g/dL 08/07/2012 CBC 6780002 PLT 271 10e9/L 08/07/2012 CBC 0304775 MPV 12.3 fL 08/07/2012 CBC 6066150 LARA % 50.6 % 08/07/2012 CBC 4049848 LY % 34.9 % 08/07/2012 CBC 1037467 MON % 9.1 % 08/07/2012 CBC 1826729 EOS % 5.1 % 08/07/2012 CBC 8694212 BASO % 0.3 % 08/07/2012 CBC 9070112 RDW 13.6 % 08/07/2012 CBC 1448742 ABS LARA 4.40 10e9/L 08/07/2012 CBC 8989021 ABS LYMPH 3.04 10e9/L 08/07/2012 CBC 4250073 ABS MONO 0.79 10e9/L 08/07/2012 CBC 3092222 ABS EOS 0.44 10e9/L 08/07/2012 CBC 1454333 ABS BASO 0.03 10e9/L 08/07/2012 CBC 9582391 RDW-SD 44.1 fL 08/07/2012 TSH 9897132 TSH 7.419 uIU/ML 08/07/2012 GFR CALC 2827645 GFR AA >60 ML/MIN 08/07/2012 GFR CALC 5708014 GFR NON-AA >60 ML/MIN 08/07/2012 A1C HPLC [id number] A1C HPLC 98750-1 5.3 % 02/21/2012 TSH 9611260 TSH 0.832 uIU/ML 02/16/2012 FREE T4 2075617 FREE T4 1.04 NG/DL 02/16/2012 GFR CALC 2304210 GFR AA >60 ML/MIN 02/16/2012 GFR CALC 7459261 GFR NON-AA >60 ML/MIN 02/16/2012 BMP GLUCOSE 112 MG/DL 02/16/2012 BMP CREATININE 0.65 MG/DL 02/16/2012 BMP BUN 17 MG/DL 02/16/2012 BMP SODIUM 144 MMOL/L 02/16/2012 BMP POTASSIUM 4.0 MMOL/L 02/16/2012 BMP CHLORIDE 107 MMOL/L 02/16/2012 BMP BICARB 29 MMOL/L 02/16/2012 BMP 8937685 ANION GAP 8 MEQ/L 02/16/2012 BMP 1638361 CALCIUM 9.5 MG/DL 02/16/2012 CBC 6255408 WBC 7.1 10e9/L 02/16/2012 CBC 9745293 RBC 4.47 10e12/L 02/16/2012 CBC 8243215 HGB 13.5 g/dL 02/16/2012 CBC 6649382 HCT DET 40.7 % 02/16/2012 CBC 3996386 MCV 91.1 fL 02/16/2012 CBC 8732039 MCH 30.2 pg 02/16/2012 CBC 5037433 MCHC 33.2 g/dL 02/16/2012 CBC 9100605 PLT 238 10e9/L 02/16/2012 CBC 6767871 MPV 11.4 fL 02/16/2012 CBC [id number] LARA % 55.7 % 02/16/2012 CBC 1503309 LY % 29.6 % 02/16/2012 CBC 4987758 MON % 9.2 % 02/16/2012 CBC 8645689 EOS % 5.1 % 02/16/2012 CBC 5825303 BASO % 0.4 % 02/16/2012 CBC [id number] RDW 13.0 % 02/16/2012 CBC 3571005 ABS LARA 3.95 10e9/L 02/16/2012 CBC 8521879 ABS LYMPH 2.10 10e9/L 02/16/2012 CBC 9359387 ABS MONO 0.65 10e9/L 02/16/2012 CBC 4776281 ABS EOS 0.36 10e9/L 02/16/2012 CBC 2358180 ABS BASO 0.03 10e9/L 02/16/2012 CBC 9760578 RDW-SD 42.4 fL 02/16/2012 URINALYSIS NONAUTO W/O SCOPE 09673 Specific [place] 1.015 DateTime(Free Text in Aprima) URINALYSIS NONAUTO W/O SCOPE 63198 PH 7 DateTime(Free Text in Aprima) URINALYSIS NONAUTO W/O SCOPE 32981 GLUCOSE neg DateTime(Free Text in Aprima) URINALYSIS NONAUTO W/O SCOPE 55294 Protein 1+ DateTime(Free Text in Aprima) URINALYSIS NONAUTO W/O SCOPE 25394 Blood neg DateTime(Free Text in Aprima) URINALYSIS NONAUTO W/O SCOPE 82485 Bilirubin neg DateTime(Free Text in Aprima) URINALYSIS NONAUTO W/O SCOPE 45411 Ketones neg DateTime(Free Text in Aprima) URINALYSIS NONAUTO W/O SCOPE 12049 Urobilinogen neg DateTime(Free Text in Aprima) URINALYSIS NONAUTO W/O SCOPE 99239 Nitrite postive DateTime(Free Text in Aprima) URINALYSIS NONAUTO W/O SCOPE 99392 Leukocytes 3+ DateTime(Free Text in Aprima) URINALYSIS NONAUTO W/O SCOPE 57506 Specific [place] 1.030 DateTime(Free Text in Aprima) URINALYSIS NONAUTO W/O SCOPE 01716 PH 6 DateTime(Free Text in Aprima) URINALYSIS NONAUTO W/O SCOPE 29153 GLUCOSE neg DateTime(Free Text in Aprima) URINALYSIS NONAUTO W/O SCOPE 38968 Protein neg DateTime(Free Text in Aprima) URINALYSIS NONAUTO W/O SCOPE 55986 Blood neg DateTime(Free Text in Aprima) URINALYSIS NONAUTO W/O SCOPE 02732 Bilirubin neg DateTime(Free Text in Aprima) URINALYSIS NONAUTO W/O SCOPE 39636 Ketones neg DateTime(Free Text in Aprima) URINALYSIS NONAUTO W/O SCOPE 29154 Urobilinogen neg DateTime(Free Text in Aprima) URINALYSIS NONAUTO W/O SCOPE 84070 Nitrite neg DateTime(Free Text in Aprima) URINALYSIS NONAUTO W/O SCOPE 90487 Leukocytes trace DateTime(Free Text in Aprima) URINALYSIS NONAUTO W/O SCOPE 77498 Specific [place] 1.005 DateTime(Free Text in Aprima) URINALYSIS NONAUTO W/O SCOPE 61219 PH 5 DateTime(Free Text in Aprima) URINALYSIS NONAUTO W/O SCOPE 62940 GLUCOSE neg DateTime(Free Text in Aprima) URINALYSIS NONAUTO W/O SCOPE 91288 Protein neg DateTime(Free Text in Aprima) URINALYSIS NONAUTO W/O SCOPE 62541 Blood neg DateTime(Free Text in Aprima) URINALYSIS NONAUTO W/O SCOPE 46259 Bilirubin neg DateTime(Free Text in Aprima) URINALYSIS NONAUTO W/O SCOPE 70224 Ketones neg DateTime(Free Text in Aprima) URINALYSIS NONAUTO W/O SCOPE 89614 Urobilinogen neg DateTime(Free Text in Aprima) URINALYSIS NONAUTO W/O SCOPE 72114 Nitrite neg DateTime(Free Text in Aprima) URINALYSIS NONAUTO W/O SCOPE 78457 Leukocytes neg DateTime(Free Text in Aprima) UA 60066 Specific [place] 1.030 DateTime(Free Text in Novima) UA 44961 PH 5 DateTime(Free Text in Aprima) UA 85022 GLUCOSE neg DateTime(Free Text in Aprima) UA 82771 Protein trace DateTime(Free Text in Aprima) UA 44827 Blood large DateTime(Free Text in Aprima) UA 01322 Bilirubin neg DateTime(Free Text in Aprima) UA 98807 Ketones neg DateTime(Free Text in Aprima) UA 69806 Urobilinogen neg DateTime(Free Text in Aprima) UA 10885 Nitrite neg DateTime(Free Text in Aprima) UA 58707 Leukocytes large DateTime(Free Text in ) Review of Systems System Result Effective Dates Constitutional No recent illness 02/25/2019 Constitutional No anorexia 02/25/2019 Constitutional No night sweats 02/25/2019 Constitutional No chills 02/25/2019 Constitutional No diaphoresis 02/25/2019 Constitutional No fatigue 02/25/2019 Constitutional No fever 02/25/2019 Constitutional No insomnia 02/25/2019 Constitutional No malaise 02/25/2019 Constitutional No weight loss 02/25/2019 Constitutional No weight gain 02/25/2019 Dermatologic sores 02/25/2019 Constitutional No recent illness 02/20/2019 Constitutional No chills 02/20/2019 Constitutional No diaphoresis 02/20/2019 Constitutional No fever 02/20/2019 Eyes No eye erythema 02/20/2019 Ears/Nose/Throat/Neck No nasal discharge 02/20/2019 Cardiovascular No chest pain/pressure 02/20/2019 Respiratory No cough 02/20/2019 Neurologic No alteration of consciousness 02/20/2019 Neurologic No mental status change 02/20/2019 Dermatologic sores 02/20/2019 Constitutional No recent illness 01/29/2019 Constitutional No chills 01/29/2019 Constitutional No diaphoresis 01/29/2019 Constitutional No fever 01/29/2019 Eyes No blindness 01/29/2019 Ears/Nose/Throat/Neck No nasal discharge 01/29/2019 Cardiovascular No chest pain/pressure 01/29/2019 Cardiovascular No dyspnea 01/29/2019 Cardiovascular No edema 01/29/2019 Cardiovascular hypertension 01/29/2019 Cardiovascular No near-syncope/dizziness 01/29/2019 Cardiovascular No palpitations 01/29/2019 Respiratory No chest congestion 01/29/2019 Respiratory No cough 01/29/2019 Gastrointestinal No abdominal pain 01/29/2019 Dermatologic No rash 01/29/2019 Neurologic No alteration of consciousness 01/29/2019 Neurologic headache 01/29/2019 Neurologic No mental status change 01/29/2019 Constitutional No recent illness 11/13/2018 Constitutional No anorexia 11/13/2018 Constitutional No night sweats 11/13/2018 Constitutional No chills 11/13/2018 Constitutional No diaphoresis 11/13/2018 Constitutional fatigue 11/13/2018 Constitutional No fever 11/13/2018 Constitutional insomnia 11/13/2018 Constitutional No malaise 11/13/2018 Constitutional No weight loss 11/13/2018 Constitutional No weight gain 11/13/2018 Eyes No eye discharge 11/13/2018 Ears/Nose/Throat/Neck No dizziness 11/13/2018 Ears/Nose/Throat/Neck headache 11/13/2018 Cardiovascular No chest pain/pressure 11/13/2018 Cardiovascular No dyspnea 11/13/2018 Cardiovascular fatigue 11/13/2018 Cardiovascular hypertension 11/13/2018 Respiratory No productive sputum 11/13/2018 Gastrointestinal No abdominal pain 11/13/2018 Gastrointestinal No constipation 11/13/2018 Gastrointestinal No diarrhea 11/13/2018 Genitourinary/Nephrology No dysuria 11/13/2018 Musculoskeletal back pain 11/13/2018 Dermatologic No rash 11/13/2018 Neurologic No alteration of consciousness 11/13/2018 Psychiatric anxiety 11/13/2018 Psychiatric depression 11/13/2018 Constitutional No recent illness 10/30/2018 Constitutional No anorexia 10/30/2018 Constitutional No night sweats 10/30/2018 Constitutional No chills 10/30/2018 Constitutional No diaphoresis 10/30/2018 Constitutional fatigue 10/30/2018 Constitutional No fever 10/30/2018 Constitutional insomnia 10/30/2018 Constitutional No malaise 10/30/2018 Constitutional No weight gain 10/30/2018 Constitutional No weight loss 10/30/2018 Eyes No eye discharge 10/30/2018 Ears/Nose/Throat/Neck No dizziness 10/30/2018 Ears/Nose/Throat/Neck headache 10/30/2018 Cardiovascular No chest pain/pressure 10/30/2018 Cardiovascular No dyspnea 10/30/2018 Cardiovascular hypertension 10/30/2018 Cardiovascular fatigue 10/30/2018 Respiratory No productive sputum 10/30/2018 Gastrointestinal No abdominal pain 10/30/2018 Gastrointestinal No constipation 10/30/2018 Gastrointestinal No diarrhea 10/30/2018 Genitourinary/Nephrology No dysuria 10/30/2018 Musculoskeletal back pain 10/30/2018 Dermatologic No rash 10/30/2018 Neurologic No alteration of consciousness 10/30/2018 Psychiatric anxiety 10/30/2018 Psychiatric depression 10/30/2018 Constitutional No recent illness 10/08/2018 Constitutional No anorexia 10/08/2018 Constitutional No night sweats 10/08/2018 Constitutional No chills 10/08/2018 Constitutional No diaphoresis 10/08/2018 Constitutional fatigue 10/08/2018 Constitutional No fever 10/08/2018 Constitutional No insomnia 10/08/2018 Constitutional No malaise 10/08/2018 Constitutional No weight gain 10/08/2018 Constitutional No weight loss 10/08/2018 Eyes eye discharge 10/08/2018 Eyes eye erythema 10/08/2018 Ears/Nose/Throat/Neck nasal allergies 10/08/2018 Ears/Nose/Throat/Neck nasal discharge 10/08/2018 Ears/Nose/Throat/Neck No otalgia 10/08/2018 Ears/Nose/Throat/Neck No sinus congestion 10/08/2018 Ears/Nose/Throat/Neck headache 10/08/2018 Cardiovascular No chest pain/pressure 10/08/2018 Respiratory No cough 10/08/2018 Gastrointestinal No vomiting 10/08/2018 Gastrointestinal No nausea 10/08/2018 Gastrointestinal No dyspepsia 10/08/2018 Dermatologic No rash 10/08/2018 Dermatologic No sores 10/08/2018 Neurologic No alteration of consciousness 10/08/2018 Constitutional No recent illness 07/16/2018 Constitutional No chills 07/16/2018 Constitutional No diaphoresis 07/16/2018 Constitutional No fever 07/16/2018 Eyes No eye erythema 07/16/2018 Ears/Nose/Throat/Neck No nasal discharge 07/16/2018 Cardiovascular No chest pain/pressure 07/16/2018 Cardiovascular No dyspnea 07/16/2018 Cardiovascular No edema 07/16/2018 Cardiovascular hypertension 07/16/2018 Cardiovascular No near-syncope/dizziness 07/16/2018 Cardiovascular No palpitations 07/16/2018 Respiratory No cough 07/16/2018 Respiratory No chest congestion 07/16/2018 Gastrointestinal No abdominal pain 07/16/2018 Dermatologic No rash 07/16/2018 Neurologic No alteration of consciousness 07/16/2018 Neurologic No mental status change 07/16/2018 Neurologic headache 07/16/2018 Constitutional recent illness 07/10/2018 Constitutional No anorexia 07/10/2018 Constitutional No night sweats 07/10/2018 Constitutional No chills 07/10/2018 Constitutional No diaphoresis 07/10/2018 Constitutional fatigue 07/10/2018 Constitutional No fever 07/10/2018 Constitutional No insomnia 07/10/2018 Constitutional No malaise 07/10/2018 Constitutional No weight loss 07/10/2018 Constitutional No weight gain 07/10/2018 Eyes No eye discharge 07/10/2018 Eyes No eye erythema 07/10/2018 Ears/Nose/Throat/Neck No dizziness 07/10/2018 Ears/Nose/Throat/Neck headache 07/10/2018 Ears/Nose/Throat/Neck nasal allergies 07/10/2018 Ears/Nose/Throat/Neck nasal discharge 07/10/2018 Ears/Nose/Throat/Neck otalgia 07/10/2018 Ears/Nose/Throat/Neck sinus congestion 07/10/2018 Ears/Nose/Throat/Neck sore throat 07/10/2018 Cardiovascular No chest pain/pressure 07/10/2018 Cardiovascular No dyspnea 07/10/2018 Cardiovascular No edema 07/10/2018 Respiratory No productive sputum 07/10/2018 Respiratory No chest congestion 07/10/2018 Respiratory cough 07/10/2018 Gastrointestinal No abdominal pain 07/10/2018 Gastrointestinal No constipation 07/10/2018 Gastrointestinal No diarrhea 07/10/2018 Genitourinary/Nephrology No dysuria 07/10/2018 Musculoskeletal joint complaint 07/10/2018 Dermatologic No rash 07/10/2018 Neurologic No alteration of consciousness 07/10/2018 Musculoskeletal back pain 07/10/2018 Constitutional recent illness 05/28/2018 Constitutional No anorexia 05/28/2018 Constitutional No night sweats 05/28/2018 Constitutional No chills 05/28/2018 Constitutional No diaphoresis 05/28/2018 Constitutional fatigue 05/28/2018 Constitutional No fever 05/28/2018 Constitutional No malaise 05/28/2018 Constitutional No insomnia 05/28/2018 Constitutional No weight loss 05/28/2018 Constitutional No weight gain 05/28/2018 Eyes No eye discharge 05/28/2018 Eyes No eye erythema 05/28/2018 Ears/Nose/Throat/Neck No dizziness 05/28/2018 Ears/Nose/Throat/Neck headache 05/28/2018 Ears/Nose/Throat/Neck nasal allergies 05/28/2018 Ears/Nose/Throat/Neck nasal discharge 05/28/2018 Ears/Nose/Throat/Neck otalgia 05/28/2018 Ears/Nose/Throat/Neck sinus congestion 05/28/2018 Ears/Nose/Throat/Neck sore throat 05/28/2018 Cardiovascular No chest pain/pressure 05/28/2018 Cardiovascular No dyspnea 05/28/2018 Cardiovascular No edema 05/28/2018 Respiratory No productive sputum 05/28/2018 Respiratory No chest congestion 05/28/2018 Respiratory cough 05/28/2018 Gastrointestinal No abdominal pain 05/28/2018 Gastrointestinal No constipation 05/28/2018 Gastrointestinal No diarrhea 05/28/2018 Genitourinary/Nephrology No dysuria 05/28/2018 Musculoskeletal joint complaint 05/28/2018 Dermatologic No rash 05/28/2018 Neurologic No alteration of consciousness 05/28/2018 Constitutional No recent illness 02/07/2018 Constitutional No chills 02/07/2018 Constitutional No diaphoresis 02/07/2018 Constitutional No fever 02/07/2018 Eyes No eye erythema 02/07/2018 Ears/Nose/Throat/Neck No nasal discharge 02/07/2018 Ears/Nose/Throat/Neck No nasal allergies 02/07/2018 Cardiovascular No chest pain/pressure 02/07/2018 Cardiovascular No dyspnea 02/07/2018 Respiratory No cough 02/07/2018 Respiratory No chest congestion 02/07/2018 Gastrointestinal No abdominal pain 02/07/2018 Dermatologic sores 02/07/2018 Neurologic No alteration of consciousness 02/07/2018 Neurologic No mental status change 02/07/2018 Constitutional recent illness 01/19/2018 Constitutional No anorexia 01/19/2018 Constitutional No night sweats 01/19/2018 Constitutional No chills 01/19/2018 Constitutional No diaphoresis 01/19/2018 Constitutional fatigue 01/19/2018 Constitutional No fever 01/19/2018 Constitutional No insomnia 01/19/2018 Constitutional No weight gain 01/19/2018 Constitutional No malaise 01/19/2018 Constitutional No weight loss 01/19/2018 Constitutional No obesity 01/19/2018 Eyes No eye discharge 01/19/2018 Eyes No eye pain 01/19/2018 Eyes No vision change 01/19/2018 Ears/Nose/Throat/Neck No dizziness 01/19/2018 Ears/Nose/Throat/Neck facial pain 01/19/2018 Ears/Nose/Throat/Neck headache 01/19/2018 Ears/Nose/Throat/Neck nasal allergies 01/19/2018 Ears/Nose/Throat/Neck nasal discharge 01/19/2018 Ears/Nose/Throat/Neck sinus congestion 01/19/2018 Ears/Nose/Throat/Neck No sore throat 01/19/2018 Cardiovascular No chest pain/pressure 01/19/2018 Cardiovascular No palpitations 01/19/2018 Respiratory No productive sputum 01/19/2018 Respiratory No chest congestion 01/19/2018 Respiratory No chest tightness 01/19/2018 Respiratory No cigarette smoking 01/19/2018 Respiratory cough 01/19/2018 Respiratory nocturnal cough 01/19/2018 Gastrointestinal No abdominal pain 01/19/2018 Gastrointestinal No constipation 01/19/2018 Gastrointestinal No diarrhea 01/19/2018 Gastrointestinal gastroesophageal reflux 01/19/2018 Gastrointestinal No nausea 01/19/2018 Gastrointestinal No vomiting 01/19/2018 Genitourinary/Nephrology No anuria/oliguria 01/19/2018 Genitourinary/Nephrology No dysuria 01/19/2018 Genitourinary/Nephrology No polyuria 01/19/2018 Musculoskeletal stiffness 01/19/2018 Musculoskeletal arthralgia(s) 01/19/2018 Musculoskeletal back pain 01/19/2018 Musculoskeletal No bone fracture 01/19/2018 Dermatologic No rash 01/19/2018 Dermatologic No sores 01/19/2018 Neurologic No dizziness 01/19/2018 Neurologic No mental status change 01/19/2018 Neurologic No pain, back 01/19/2018 Psychiatric No anxiety 01/19/2018 Psychiatric No depression 01/19/2018 Endocrine No polydipsia 01/19/2018 Endocrine No polyuria 01/19/2018 Hematologic/Lymphatic No abnormal ecchymoses 01/19/2018 Hematologic/Lymphatic No abnormal bleeding and bruising 01/19/2018 Musculoskeletal joint complaint 01/19/2018 Constitutional No recent illness 11/23/2017 Constitutional No chills 11/23/2017 Constitutional No diaphoresis 11/23/2017 Constitutional No fever 11/23/2017 Eyes No eye erythema 11/23/2017 Ears/Nose/Throat/Neck No nasal discharge 11/23/2017 Cardiovascular No chest pain/pressure 11/23/2017 Cardiovascular No dyspnea 11/23/2017 Respiratory No cough 11/23/2017 Respiratory No dyspnea 11/23/2017 Neurologic No alteration of consciousness 11/23/2017 Neurologic No mental status change 11/23/2017 Constitutional recent illness 09/12/2017 Constitutional chills 09/12/2017 Constitutional No diaphoresis 09/12/2017 Constitutional fever 09/12/2017 Constitutional fatigue 09/12/2017 Constitutional malaise 09/12/2017 Eyes No eye erythema 09/12/2017 Ears/Nose/Throat/Neck nasal discharge 09/12/2017 Ears/Nose/Throat/Neck nasal allergies 09/12/2017 Ears/Nose/Throat/Neck sinus congestion 09/12/2017 Cardiovascular No chest pain/pressure 09/12/2017 Cardiovascular No dyspnea 09/12/2017 Respiratory cough 09/12/2017 Respiratory No chest congestion 09/12/2017 Respiratory No dyspnea 09/12/2017 Gastrointestinal abdominal pain 09/12/2017 Gastrointestinal No constipation 09/12/2017 Gastrointestinal diarrhea 09/12/2017 Gastrointestinal No vomiting 09/12/2017 Gastrointestinal nausea 09/12/2017 Gastrointestinal No melena 09/12/2017 Gastrointestinal No gastroesophageal reflux 09/12/2017 Gastrointestinal No hematemesis 09/12/2017 Dermatologic No rash 09/12/2017 Neurologic No alteration of consciousness 09/12/2017 Neurologic No mental status change 09/12/2017 Ears/Nose/Throat/Neck headache 09/12/2017 Constitutional recent illness 07/25/2017 Constitutional No chills 07/25/2017 Constitutional No diaphoresis 07/25/2017 Constitutional No fever 07/25/2017 Eyes No eye erythema 07/25/2017 Ears/Nose/Throat/Neck nasal allergies 07/25/2017 Ears/Nose/Throat/Neck nasal discharge 07/25/2017 Ears/Nose/Throat/Neck postnasal drip 07/25/2017 Ears/Nose/Throat/Neck sinus congestion 07/25/2017 Ears/Nose/Throat/Neck sore throat 07/25/2017 Cardiovascular No chest pain/pressure 07/25/2017 Cardiovascular No dyspnea 07/25/2017 Respiratory chest congestion 07/25/2017 Respiratory cough 07/25/2017 Respiratory No dyspnea 07/25/2017 Gastrointestinal No constipation 07/25/2017 Gastrointestinal No diarrhea 07/25/2017 Gastrointestinal No nausea 07/25/2017 Gastrointestinal No vomiting 07/25/2017 Dermatologic No rash 07/25/2017 Neurologic No alteration of consciousness 07/25/2017 Neurologic No mental status change 07/25/2017 Constitutional fatigue 07/25/2017 Constitutional malaise 07/25/2017 Respiratory productive sputum 07/25/2017 Constitutional recent illness 06/27/2017 Constitutional No anorexia 06/27/2017 Constitutional No night sweats 06/27/2017 Constitutional No chills 06/27/2017 Constitutional No diaphoresis 06/27/2017 Constitutional No fatigue 06/27/2017 Constitutional No fever 06/27/2017 Constitutional No insomnia 06/27/2017 Constitutional No malaise 06/27/2017 Constitutional No weight loss 06/27/2017 Constitutional No weight gain 06/27/2017 Constitutional No obesity 06/27/2017 Eyes No eye discharge 06/27/2017 Eyes No eye pain 06/27/2017 Eyes No vision change 06/27/2017 Ears/Nose/Throat/Neck No dizziness 06/27/2017 Ears/Nose/Throat/Neck facial pain 06/27/2017 Ears/Nose/Throat/Neck headache 06/27/2017 Ears/Nose/Throat/Neck nasal allergies 06/27/2017 Ears/Nose/Throat/Neck nasal discharge 06/27/2017 Ears/Nose/Throat/Neck sinus congestion 06/27/2017 Ears/Nose/Throat/Neck No sore throat 06/27/2017 Cardiovascular No chest pain/pressure 06/27/2017 Cardiovascular fatigue 06/27/2017 Cardiovascular No palpitations 06/27/2017 Respiratory No productive sputum 06/27/2017 Respiratory No chest congestion 06/27/2017 Respiratory No chest tightness 06/27/2017 Respiratory No cigarette smoking 06/27/2017 Respiratory cough 06/27/2017 Respiratory nocturnal cough 06/27/2017 Gastrointestinal abdominal pain 06/27/2017 Gastrointestinal No constipation 06/27/2017 Gastrointestinal diarrhea 06/27/2017 Gastrointestinal gastroesophageal reflux 06/27/2017 Gastrointestinal nausea 06/27/2017 Gastrointestinal No vomiting 06/27/2017 Genitourinary/Nephrology No anuria/oliguria 06/27/2017 Genitourinary/Nephrology No dysuria 06/27/2017 Genitourinary/Nephrology No polyuria 06/27/2017 Musculoskeletal No stiffness 06/27/2017 Musculoskeletal No arthralgia(s) 06/27/2017 Musculoskeletal No back pain 06/27/2017 Musculoskeletal No bone fracture 06/27/2017 Dermatologic No rash 06/27/2017 Dermatologic No sores 06/27/2017 Neurologic No dizziness 06/27/2017 Neurologic No mental status change 06/27/2017 Neurologic No pain, back 06/27/2017 Psychiatric No anxiety 06/27/2017 Psychiatric No depression 06/27/2017 Endocrine No polydipsia 06/27/2017 Endocrine No polyuria 06/27/2017 Hematologic/Lymphatic No abnormal ecchymoses 06/27/2017 Hematologic/Lymphatic No abnormal bleeding and bruising 06/27/2017 Constitutional recent illness 05/08/2017 Constitutional No anorexia 05/08/2017 Constitutional No night sweats 05/08/2017 Constitutional No chills 05/08/2017 Constitutional No diaphoresis 05/08/2017 Constitutional No fatigue 05/08/2017 Constitutional No fever 05/08/2017 Constitutional No insomnia 05/08/2017 Constitutional No malaise 05/08/2017 Constitutional No weight loss 05/08/2017 Constitutional No weight gain 05/08/2017 Constitutional No obesity 05/08/2017 Eyes No eye discharge 05/08/2017 Eyes No eye pain 05/08/2017 Eyes No vision change 05/08/2017 Ears/Nose/Throat/Neck No dizziness 05/08/2017 Ears/Nose/Throat/Neck facial pain 05/08/2017 Ears/Nose/Throat/Neck headache 05/08/2017 Ears/Nose/Throat/Neck nasal allergies 05/08/2017 Ears/Nose/Throat/Neck nasal discharge 05/08/2017 Ears/Nose/Throat/Neck sinus congestion 05/08/2017 Ears/Nose/Throat/Neck No sore throat 05/08/2017 Cardiovascular No chest pain/pressure 05/08/2017 Cardiovascular fatigue 05/08/2017 Cardiovascular No palpitations 05/08/2017 Respiratory No productive sputum 05/08/2017 Respiratory No chest congestion 05/08/2017 Respiratory No chest tightness 05/08/2017 Respiratory No cigarette smoking 05/08/2017 Respiratory cough 05/08/2017 Respiratory nocturnal cough 05/08/2017 Gastrointestinal No abdominal pain 05/08/2017 Gastrointestinal No constipation 05/08/2017 Gastrointestinal No diarrhea 05/08/2017 Gastrointestinal No nausea 05/08/2017 Gastrointestinal No vomiting 05/08/2017 Genitourinary/Nephrology No anuria/oliguria 05/08/2017 Genitourinary/Nephrology No dysuria 05/08/2017 Genitourinary/Nephrology No polyuria 05/08/2017 Musculoskeletal No stiffness 05/08/2017 Musculoskeletal No arthralgia(s) 05/08/2017 Musculoskeletal No back pain 05/08/2017 Musculoskeletal No bone fracture 05/08/2017 Dermatologic No rash 05/08/2017 Dermatologic No sores 05/08/2017 Neurologic No dizziness 05/08/2017 Neurologic No mental status change 05/08/2017 Neurologic No pain, back 05/08/2017 Psychiatric No anxiety 05/08/2017 Psychiatric No depression 05/08/2017 Endocrine No polydipsia 05/08/2017 Endocrine No polyuria 05/08/2017 Hematologic/Lymphatic No abnormal ecchymoses 05/08/2017 Hematologic/Lymphatic No abnormal bleeding and bruising 05/08/2017 Gastrointestinal gastroesophageal reflux 05/08/2017 Constitutional recent illness 03/14/2017 Constitutional No anorexia 03/14/2017 Constitutional No night sweats 03/14/2017 Constitutional No chills 03/14/2017 Constitutional No diaphoresis 03/14/2017 Constitutional No fatigue 03/14/2017 Constitutional No fever 03/14/2017 Constitutional No insomnia 03/14/2017 Constitutional No malaise 03/14/2017 Constitutional No weight loss 03/14/2017 Constitutional No weight gain 03/14/2017 Constitutional No obesity 03/14/2017 Eyes No eye discharge 03/14/2017 Eyes No eye pain 03/14/2017 Eyes No vision change 03/14/2017 Ears/Nose/Throat/Neck No dizziness 03/14/2017 Ears/Nose/Throat/Neck facial pain 03/14/2017 Ears/Nose/Throat/Neck headache 03/14/2017 Ears/Nose/Throat/Neck nasal allergies 03/14/2017 Ears/Nose/Throat/Neck nasal discharge 03/14/2017 Ears/Nose/Throat/Neck sinus congestion 03/14/2017 Ears/Nose/Throat/Neck No sore throat 03/14/2017 Cardiovascular No chest pain/pressure 03/14/2017 Cardiovascular fatigue 03/14/2017 Cardiovascular No palpitations 03/14/2017 Respiratory No productive sputum 03/14/2017 Respiratory No chest congestion 03/14/2017 Respiratory No chest tightness 03/14/2017 Respiratory No cigarette smoking 03/14/2017 Respiratory cough 03/14/2017 Respiratory nocturnal cough 03/14/2017 Gastrointestinal No abdominal pain 03/14/2017 Gastrointestinal No constipation 03/14/2017 Gastrointestinal No diarrhea 03/14/2017 Gastrointestinal No nausea 03/14/2017 Gastrointestinal No vomiting 03/14/2017 Genitourinary/Nephrology No anuria/oliguria 03/14/2017 Genitourinary/Nephrology No dysuria 03/14/2017 Genitourinary/Nephrology No polyuria 03/14/2017 Musculoskeletal No stiffness 03/14/2017 Musculoskeletal No arthralgia(s) 03/14/2017 Musculoskeletal No back pain 03/14/2017 Musculoskeletal No bone fracture 03/14/2017 Dermatologic No rash 03/14/2017 Dermatologic No sores 03/14/2017 Neurologic No dizziness 03/14/2017 Neurologic No mental status change 03/14/2017 Neurologic No pain, back 03/14/2017 Psychiatric No anxiety 03/14/2017 Psychiatric No depression 03/14/2017 Endocrine No polydipsia 03/14/2017 Endocrine No polyuria 03/14/2017 Hematologic/Lymphatic No abnormal ecchymoses 03/14/2017 Hematologic/Lymphatic No abnormal bleeding and bruising 03/14/2017 Constitutional recent illness 02/20/2017 Constitutional fatigue 02/20/2017 Constitutional fever 02/20/2017 Ears/Nose/Throat/Neck No nasal allergies 02/20/2017 Ears/Nose/Throat/Neck No sore throat 02/20/2017 Ears/Nose/Throat/Neck No postnasal drip 02/20/2017 Ears/Nose/Throat/Neck No sinus congestion 02/20/2017 Cardiovascular No chest pain/pressure 02/20/2017 Cardiovascular No dyspnea 02/20/2017 Respiratory No cough 02/20/2017 Respiratory No dyspnea 02/20/2017 Gastrointestinal abdominal pain 02/20/2017 Gastrointestinal No constipation 02/20/2017 Gastrointestinal No diarrhea 02/20/2017 Gastrointestinal dyspepsia 02/20/2017 Gastrointestinal nausea 02/20/2017 Gastrointestinal No vomiting 02/20/2017 Constitutional chills 02/20/2017 Constitutional No diaphoresis 02/20/2017 Eyes No eye erythema 02/20/2017 Gastrointestinal gastroesophageal reflux 02/20/2017 Neurologic No alteration of consciousness 02/20/2017 Neurologic No mental status change 02/20/2017 Constitutional No recent illness 02/06/2017 Constitutional fatigue 02/06/2017 Constitutional No fever 02/06/2017 Constitutional No insomnia 02/06/2017 Constitutional No malaise 02/06/2017 Cardiovascular No chest pain/pressure 02/06/2017 Cardiovascular No dyspnea 02/06/2017 Cardiovascular No edema 02/06/2017 Cardiovascular fatigue 02/06/2017 Cardiovascular hypertension 02/06/2017 Cardiovascular No orthopnea 02/06/2017 Cardiovascular No syncope 02/06/2017 Respiratory No chest congestion 02/06/2017 Respiratory No chest tightness 02/06/2017 Respiratory No cough 02/06/2017 Respiratory No dyspnea 02/06/2017 Gastrointestinal abdominal pain 02/06/2017 Gastrointestinal No constipation 02/06/2017 Gastrointestinal No diarrhea 02/06/2017 Gastrointestinal No nausea 02/06/2017 Gastrointestinal No vomiting 02/06/2017 Musculoskeletal No stiffness 02/06/2017 Musculoskeletal No swelling 02/06/2017 Musculoskeletal back pain 02/06/2017 Musculoskeletal No joint complaint 02/06/2017 Musculoskeletal No muscle weakness 02/06/2017 Musculoskeletal No myalgias 02/06/2017 Neurologic No dizziness 02/06/2017 Neurologic No gait abnormality 02/06/2017 Neurologic No headache 02/06/2017 Neurologic No paresthesia 02/06/2017 Neurologic No seizure 02/06/2017 Psychiatric depression 02/06/2017 Psychiatric anxiety 02/06/2017 Gastrointestinal dyspepsia 02/06/2017 Ears/Nose/Throat/Neck No dental pain 02/06/2017 Ears/Nose/Throat/Neck No dizziness 02/06/2017 Ears/Nose/Throat/Neck No dysphagia 02/06/2017 Ears/Nose/Throat/Neck No headache 02/06/2017 Ears/Nose/Throat/Neck No hearing loss 02/06/2017 Ears/Nose/Throat/Neck No nasal allergies 02/06/2017 Ears/Nose/Throat/Neck No sore throat 02/06/2017 Ears/Nose/Throat/Neck No postnasal drip 02/06/2017 Ears/Nose/Throat/Neck No sinus congestion 02/06/2017 Dermatologic sores 02/06/2017 Constitutional No anorexia 12/05/2016 Constitutional No night sweats 12/05/2016 Constitutional No chills 12/05/2016 Constitutional No fatigue 12/05/2016 Constitutional No fever 12/05/2016 Eyes No vision change 12/05/2016 Ears/Nose/Throat/Neck No dizziness 12/05/2016 Ears/Nose/Throat/Neck No headache 12/05/2016 Respiratory No productive sputum 12/05/2016 Respiratory No chest congestion 12/05/2016 Respiratory No chest tightness 12/05/2016 Respiratory No cough 12/05/2016 Gastrointestinal No diarrhea 12/05/2016 Gastrointestinal No nausea 12/05/2016 Gastrointestinal No vomiting 12/05/2016 Genitourinary/Nephrology No urinary urgency 12/05/2016 Genitourinary/Nephrology No urinary frequency 12/05/2016 Musculoskeletal No back pain 12/05/2016 Neurologic No dizziness 12/05/2016 Dermatologic sores 12/05/2016 Constitutional recent illness 11/28/2016 Constitutional No anorexia 11/28/2016 Constitutional No night sweats 11/28/2016 Constitutional No chills 11/28/2016 Constitutional No diaphoresis 11/28/2016 Constitutional No fatigue 11/28/2016 Constitutional No fever 11/28/2016 Constitutional No insomnia 11/28/2016 Constitutional No malaise 11/28/2016 Constitutional No weight loss 11/28/2016 Constitutional No weight gain 11/28/2016 Constitutional No obesity 11/28/2016 Eyes No eye pain 11/28/2016 Eyes No vision change 11/28/2016 Ears/Nose/Throat/Neck headache 11/28/2016 Ears/Nose/Throat/Neck No dizziness 11/28/2016 Cardiovascular No palpitations 11/28/2016 Cardiovascular No chest pain/pressure 11/28/2016 Cardiovascular fatigue 11/28/2016 Respiratory No chest congestion 11/28/2016 Respiratory No chest tightness 11/28/2016 Respiratory No cigarette smoking 11/28/2016 Respiratory cough 11/28/2016 Gastrointestinal No diarrhea 11/28/2016 Gastrointestinal No nausea 11/28/2016 Gastrointestinal No vomiting 11/28/2016 Genitourinary/Nephrology No anuria/oliguria 11/28/2016 Genitourinary/Nephrology dysuria 11/28/2016 Musculoskeletal No stiffness 11/28/2016 Musculoskeletal No arthralgia(s) 11/28/2016 Musculoskeletal No back pain 11/28/2016 Musculoskeletal No bone fracture 11/28/2016 Dermatologic No rash 11/28/2016 Dermatologic No sores 11/28/2016 Neurologic No dizziness 11/28/2016 Neurologic No mental status change 11/28/2016 Neurologic No pain, back 11/28/2016 Ears/Nose/Throat/Neck nasal allergies 11/28/2016 Ears/Nose/Throat/Neck nasal discharge 11/28/2016 Ears/Nose/Throat/Neck sinus congestion 11/28/2016 Ears/Nose/Throat/Neck No sore throat 11/28/2016 Eyes No eye discharge 11/28/2016 Ears/Nose/Throat/Neck facial pain 11/28/2016 Respiratory No productive sputum 11/28/2016 Respiratory nocturnal cough 11/28/2016 Gastrointestinal No abdominal pain 11/28/2016 Gastrointestinal No constipation 11/28/2016 Genitourinary/Nephrology No polyuria 11/28/2016 Genitourinary/Nephrology urinary frequency 11/28/2016 Genitourinary/Nephrology No urinary incontinence 11/28/2016 Genitourinary/Nephrology No urinary retention/hesitancy 11/28/2016 Psychiatric No anxiety 11/28/2016 Psychiatric No depression 11/28/2016 Hematologic/Lymphatic No abnormal ecchymoses 11/28/2016 Hematologic/Lymphatic No abnormal bleeding and bruising 11/28/2016 Endocrine No polyuria 11/28/2016 Endocrine No polydipsia 11/28/2016 Constitutional recent illness 11/07/2016 Constitutional No chills 11/07/2016 Constitutional No fever 11/07/2016 Constitutional No diaphoresis 11/07/2016 Eyes No eye erythema 11/07/2016 Ears/Nose/Throat/Neck nasal allergies 11/07/2016 Ears/Nose/Throat/Neck nasal discharge 11/07/2016 Ears/Nose/Throat/Neck sinus congestion 11/07/2016 Ears/Nose/Throat/Neck postnasal drip 11/07/2016 Cardiovascular No chest pain/pressure 11/07/2016 Cardiovascular No dyspnea 11/07/2016 Respiratory No cough 11/07/2016 Gastrointestinal No abdominal pain 11/07/2016 Dermatologic No rash 11/07/2016 Neurologic No alteration of consciousness 11/07/2016 Neurologic No mental status change 11/07/2016 Constitutional recent illness 08/15/2016 Constitutional fever 08/15/2016 Eyes No eye erythema 08/15/2016 Ears/Nose/Throat/Neck nasal allergies 08/15/2016 Ears/Nose/Throat/Neck nasal discharge 08/15/2016 Ears/Nose/Throat/Neck postnasal drip 08/15/2016 Ears/Nose/Throat/Neck sinus congestion 08/15/2016 Ears/Nose/Throat/Neck sore throat 08/15/2016 Cardiovascular No chest pain/pressure 08/15/2016 Cardiovascular No dyspnea 08/15/2016 Respiratory chest congestion 08/15/2016 Respiratory cough 08/15/2016 Respiratory No dyspnea 08/15/2016 Gastrointestinal No constipation 08/15/2016 Gastrointestinal diarrhea 08/15/2016 Dermatologic No rash 08/15/2016 Neurologic No alteration of consciousness 08/15/2016 Neurologic No mental status change 08/15/2016 Constitutional chills 08/15/2016 Constitutional No diaphoresis 08/15/2016 Constitutional malaise 08/15/2016 Gastrointestinal No vomiting 08/15/2016 Constitutional recent illness 06/07/2016 Constitutional No anorexia 06/07/2016 Constitutional No night sweats 06/07/2016 Constitutional No chills 06/07/2016 Constitutional No diaphoresis 06/07/2016 Constitutional No fatigue 06/07/2016 Constitutional No fever 06/07/2016 Constitutional No insomnia 06/07/2016 Constitutional No malaise 06/07/2016 Constitutional No weight loss 06/07/2016 Constitutional No weight gain 06/07/2016 Eyes No eye discharge 06/07/2016 Eyes No eye erythema 06/07/2016 Ears/Nose/Throat/Neck No dizziness 06/07/2016 Ears/Nose/Throat/Neck headache 06/07/2016 Ears/Nose/Throat/Neck nasal allergies 06/07/2016 Ears/Nose/Throat/Neck nasal discharge 06/07/2016 Ears/Nose/Throat/Neck No otalgia 06/07/2016 Ears/Nose/Throat/Neck sinus congestion 06/07/2016 Ears/Nose/Throat/Neck No sore throat 06/07/2016 Cardiovascular No chest pain/pressure 06/07/2016 Respiratory cough 06/07/2016 Gastrointestinal No abdominal pain 06/07/2016 Gastrointestinal No constipation 06/07/2016 Gastrointestinal diarrhea 06/07/2016 Genitourinary/Nephrology No dysuria 06/07/2016 Musculoskeletal joint complaint 06/07/2016 Musculoskeletal back pain 06/07/2016 Dermatologic No rash 06/07/2016 Neurologic No aphasia 06/07/2016 Constitutional No recent illness 03/14/2016 Constitutional No anorexia 03/14/2016 Constitutional No night sweats 03/14/2016 Constitutional No chills 03/14/2016 Constitutional No diaphoresis 03/14/2016 Constitutional fatigue 03/14/2016 Constitutional No fever 03/14/2016 Constitutional No malaise 03/14/2016 Constitutional No insomnia 03/14/2016 Constitutional No weight loss 03/14/2016 Constitutional No weight gain 03/14/2016 Eyes No eye discharge 03/14/2016 Eyes No eye erythema 03/14/2016 Ears/Nose/Throat/Neck No dizziness 03/14/2016 Ears/Nose/Throat/Neck headache 03/14/2016 Ears/Nose/Throat/Neck nasal allergies 03/14/2016 Cardiovascular dyspnea 03/14/2016 Cardiovascular No edema 03/14/2016 Cardiovascular No chest pain/pressure 03/14/2016 Cardiovascular palpitations 03/14/2016 Cardiovascular hypertension 03/14/2016 Cardiovascular fatigue 03/14/2016 Respiratory No cough 03/14/2016 Respiratory dyspnea 03/14/2016 Gastrointestinal No abdominal pain 03/14/2016 Musculoskeletal joint complaint 03/14/2016 Musculoskeletal neck pain 03/14/2016 Dermatologic No rash 03/14/2016 Neurologic No alteration of consciousness 03/14/2016 Psychiatric anxiety 03/14/2016 Constitutional No recent illness 02/22/2016 Constitutional No fever 02/22/2016 Eyes No eye discharge 02/22/2016 Eyes No eye erythema 02/22/2016 Cardiovascular No chest pain/pressure 02/22/2016 Respiratory No cough 02/22/2016 Ears/Nose/Throat/Neck No nasal allergies 02/22/2016 Dermatologic sores 02/22/2016 Gastrointestinal No abdominal pain 02/22/2016 Neurologic No alteration of consciousness 02/22/2016 Neurologic No mental status change 02/22/2016 Psychiatric No anxiety 02/22/2016 Constitutional recent illness 12/07/2015 Constitutional No anorexia 12/07/2015 Constitutional No night sweats 12/07/2015 Constitutional No diaphoresis 12/07/2015 Constitutional No chills 12/07/2015 Constitutional fatigue 12/07/2015 Constitutional No fever 12/07/2015 Constitutional insomnia 12/07/2015 Constitutional No malaise 12/07/2015 Constitutional No weight loss 12/07/2015 Constitutional No weight gain 12/07/2015 Eyes No eye erythema 12/07/2015 Eyes No eye discharge 12/07/2015 Ears/Nose/Throat/Neck No dizziness 12/07/2015 Ears/Nose/Throat/Neck headache 12/07/2015 Ears/Nose/Throat/Neck nasal allergies 12/07/2015 Ears/Nose/Throat/Neck nasal discharge 12/07/2015 Ears/Nose/Throat/Neck otalgia 12/07/2015 Ears/Nose/Throat/Neck sinus congestion 12/07/2015 Cardiovascular No chest pain/pressure 12/07/2015 Respiratory cough 12/07/2015 Respiratory No productive sputum 12/07/2015 Gastrointestinal No abdominal pain 12/07/2015 Gastrointestinal No diarrhea 12/07/2015 Gastrointestinal No constipation 12/07/2015 Genitourinary/Nephrology No dysuria 12/07/2015 Musculoskeletal No joint complaint 12/07/2015 Dermatologic No rash 12/07/2015 Constitutional No recent illness 11/24/2015 Constitutional No anorexia 11/24/2015 Constitutional No night sweats 11/24/2015 Constitutional No chills 11/24/2015 Constitutional No diaphoresis 11/24/2015 Constitutional fatigue 11/24/2015 Constitutional No fever 11/24/2015 Constitutional No insomnia 11/24/2015 Constitutional No malaise 11/24/2015 Eyes No eye discharge 11/24/2015 Eyes No eye erythema 11/24/2015 Ears/Nose/Throat/Neck dizziness 11/24/2015 Ears/Nose/Throat/Neck No headache 11/24/2015 Ears/Nose/Throat/Neck nasal allergies 11/24/2015 Ears/Nose/Throat/Neck No nasal discharge 11/24/2015 Ears/Nose/Throat/Neck No otalgia 11/24/2015 Ears/Nose/Throat/Neck No sore throat 11/24/2015 Cardiovascular No chest pain/pressure 11/24/2015 Cardiovascular No dyspnea 11/24/2015 Respiratory No productive sputum 11/24/2015 Respiratory No chest congestion 11/24/2015 Respiratory No cough 11/24/2015 Respiratory dyspnea on exertion 11/24/2015 Gastrointestinal No abdominal pain 11/24/2015 Gastrointestinal No constipation 11/24/2015 Gastrointestinal No diarrhea 11/24/2015 Gastrointestinal No nausea 11/24/2015 Gastrointestinal No vomiting 11/24/2015 Genitourinary/Nephrology No dysuria 11/24/2015 Dermatologic No rash 11/24/2015 Dermatologic No sores 11/24/2015 Neurologic No alteration of consciousness 11/24/2015 Ears/Nose/Throat/Neck facial pain 11/24/2015 Psychiatric No anxiety 11/24/2015 Psychiatric No depression 11/24/2015 Constitutional No insomnia 08/27/2015 Constitutional No fever 08/27/2015 Eyes photophobia 08/27/2015 Eyes No eye discharge 08/27/2015 Eyes No eye erythema 08/27/2015 Ears/Nose/Throat/Neck No nasal allergies 08/27/2015 Ears/Nose/Throat/Neck No nasal discharge 08/27/2015 Ears/Nose/Throat/Neck No sinus congestion 08/27/2015 Ears/Nose/Throat/Neck No sore throat 08/27/2015 Cardiovascular No chest pain/pressure 08/27/2015 Cardiovascular No dyspnea 08/27/2015 Cardiovascular No edema 08/27/2015 Respiratory No cough 08/27/2015 Respiratory No chest congestion 08/27/2015 Gastrointestinal No abdominal pain 08/27/2015 Gastrointestinal nausea 08/27/2015 Gastrointestinal No vomiting 08/27/2015 Musculoskeletal neck pain 08/27/2015 Dermatologic No rash 08/27/2015 Neurologic No alteration of consciousness 08/27/2015 Neurologic No mental status change 08/27/2015 Constitutional No night sweats 08/10/2015 Constitutional No chills 08/10/2015 Constitutional No fever 08/10/2015 Eyes No vision change 08/10/2015 Cardiovascular No chest pain/pressure 08/10/2015 Cardiovascular No dyspnea 08/10/2015 Cardiovascular No edema 08/10/2015 Respiratory chest congestion 08/10/2015 Respiratory No chest tightness 08/10/2015 Respiratory cough 08/10/2015 Gastrointestinal No abdominal pain 08/10/2015 Gastrointestinal No constipation 08/10/2015 Gastrointestinal No diarrhea 08/10/2015 Dermatologic No rash 08/10/2015 Dermatologic No sores 08/10/2015 Constitutional recent illness 08/10/2015 Eyes No eye discharge 08/10/2015 Eyes No eye erythema 08/10/2015 Ears/Nose/Throat/Neck facial pain 08/10/2015 Ears/Nose/Throat/Neck nasal allergies 08/10/2015 Ears/Nose/Throat/Neck nasal discharge 08/10/2015 Ears/Nose/Throat/Neck postnasal drip 08/10/2015 Ears/Nose/Throat/Neck sinus congestion 08/10/2015 Ears/Nose/Throat/Neck sore throat 08/10/2015 Respiratory productive sputum 08/10/2015 Neurologic No alteration of consciousness 08/10/2015 Constitutional No night sweats 07/28/2015 Constitutional No chills 07/28/2015 Constitutional No diaphoresis 07/28/2015 Constitutional fatigue 07/28/2015 Constitutional No fever 07/28/2015 Constitutional No insomnia 07/28/2015 Constitutional No malaise 07/28/2015 Eyes No eye discharge 07/28/2015 Eyes No eye erythema 07/28/2015 Ears/Nose/Throat/Neck No dizziness 07/28/2015 Ears/Nose/Throat/Neck No headache 07/28/2015 Cardiovascular No chest pain/pressure 07/28/2015 Cardiovascular No dyspnea 07/28/2015 Cardiovascular No edema 07/28/2015 Respiratory No productive sputum 07/28/2015 Respiratory No cough 07/28/2015 Neurologic No alteration of consciousness 07/28/2015 Dermatologic erythema 07/28/2015 Constitutional No recent illness 06/11/2015 Constitutional No anorexia 06/11/2015 Constitutional No night sweats 06/11/2015 Constitutional No chills 06/11/2015 Constitutional No diaphoresis 06/11/2015 Constitutional fatigue 06/11/2015 Constitutional No fever 06/11/2015 Constitutional No insomnia 06/11/2015 Constitutional No malaise 06/11/2015 Constitutional No weight loss 06/11/2015 Constitutional No weight gain 06/11/2015 Dermatologic rash 06/11/2015 Constitutional No recent illness 03/19/2015 Constitutional No anorexia 03/19/2015 Constitutional No night sweats 03/19/2015 Constitutional No chills 03/19/2015 Constitutional No diaphoresis 03/19/2015 Constitutional fatigue 03/19/2015 Constitutional No fever 03/19/2015 Constitutional No insomnia 03/19/2015 Constitutional No malaise 03/19/2015 Constitutional No weight loss 03/19/2015 Constitutional No weight gain 03/19/2015 Eyes No eye discharge 03/19/2015 Eyes No eye erythema 03/19/2015 Ears/Nose/Throat/Neck No dizziness 03/19/2015 Ears/Nose/Throat/Neck No headache 03/19/2015 Cardiovascular No chest pain/pressure 03/19/2015 Cardiovascular No edema 03/19/2015 Cardiovascular No dyspnea 03/19/2015 Respiratory No productive sputum 03/19/2015 Respiratory No cough 03/19/2015 Psychiatric anxiety 03/19/2015 Psychiatric depression 03/19/2015 Neurologic No alteration of consciousness 03/19/2015 Dermatologic No rash 03/19/2015 Dermatologic No sores 03/19/2015 Musculoskeletal joint complaint 03/19/2015 Musculoskeletal back pain 03/19/2015 Constitutional No night sweats 01/07/2015 Constitutional No chills 01/07/2015 Constitutional No fever 01/07/2015 Eyes eye tearing 01/07/2015 Eyes eye discharge 01/07/2015 Eyes No vision change 01/07/2015 Ears/Nose/Throat/Neck No headache 01/07/2015 Cardiovascular No chest pain/pressure 01/07/2015 Cardiovascular No dyspnea 01/07/2015 Cardiovascular No edema 01/07/2015 Cardiovascular No fatigue 01/07/2015 Respiratory No chest congestion 01/07/2015 Respiratory cough 01/07/2015 Respiratory No chest tightness 01/07/2015 Gastrointestinal No abdominal pain 01/07/2015 Gastrointestinal No diarrhea 01/07/2015 Gastrointestinal No constipation 01/07/2015 Genitourinary/Nephrology No dysuria 01/07/2015 Genitourinary/Nephrology No hematuria 01/07/2015 Musculoskeletal back pain 01/07/2015 Dermatologic No rash 01/07/2015 Dermatologic No sores 01/07/2015 Neurologic No dizziness 01/07/2015 Ears/Nose/Throat/Neck No dizziness 01/07/2015 Constitutional No recent illness 09/23/2014 Constitutional No anorexia 09/23/2014 Constitutional No night sweats 09/23/2014 Constitutional No chills 09/23/2014 Constitutional No diaphoresis 09/23/2014 Constitutional fatigue 09/23/2014 Constitutional No fever 09/23/2014 Constitutional No insomnia 09/23/2014 Constitutional No malaise 09/23/2014 Constitutional No weight loss 09/23/2014 Constitutional No weight gain 09/23/2014 Eyes eye discharge 09/23/2014 Eyes eye erythema 09/23/2014 Eyes No vision change 09/23/2014 Ears/Nose/Throat/Neck nasal allergies 09/23/2014 Ears/Nose/Throat/Neck No nasal discharge 09/23/2014 Ears/Nose/Throat/Neck No otalgia 09/23/2014 Cardiovascular No chest pain/pressure 09/23/2014 Respiratory No cough 09/23/2014 Gastrointestinal No vomiting 09/23/2014 Gastrointestinal No nausea 09/23/2014 Dermatologic No sores 09/23/2014 Dermatologic No rash 09/23/2014 Constitutional No recent illness 08/05/2014 Constitutional No anorexia 08/05/2014 Constitutional No night sweats 08/05/2014 Constitutional No chills 08/05/2014 Constitutional No diaphoresis 08/05/2014 Constitutional No fatigue 08/05/2014 Constitutional No fever 08/05/2014 Constitutional No insomnia 08/05/2014 Constitutional No malaise 08/05/2014 Constitutional No weight loss 08/05/2014 Constitutional No weight gain 08/05/2014 Constitutional recent illness 06/23/2014 Constitutional No anorexia 06/23/2014 Constitutional No night sweats 06/23/2014 Constitutional No chills 06/23/2014 Constitutional diaphoresis 06/23/2014 Constitutional fatigue 06/23/2014 Constitutional No fever 06/23/2014 Constitutional No insomnia 06/23/2014 Constitutional No malaise 06/23/2014 Constitutional No weight loss 06/23/2014 Constitutional No weight gain 06/23/2014 Eyes No eye discharge 06/23/2014 Eyes No eye erythema 06/23/2014 Cardiovascular No chest pain/pressure 06/23/2014 Respiratory productive sputum 06/23/2014 Respiratory No chest congestion 06/23/2014 Respiratory cough 06/23/2014 Gastrointestinal No abdominal pain 06/23/2014 Gastrointestinal No constipation 06/23/2014 Gastrointestinal No diarrhea 06/23/2014 Gastrointestinal No vomiting 06/23/2014 Gastrointestinal nausea 06/23/2014 Genitourinary/Nephrology No dysuria 06/23/2014 Dermatologic No sores 06/23/2014 Dermatologic No rash 06/23/2014 Constitutional No recent illness 06/05/2014 Constitutional No anorexia 06/05/2014 Constitutional No night sweats 06/05/2014 Constitutional No chills 06/05/2014 Constitutional No diaphoresis 06/05/2014 Constitutional No fatigue 06/05/2014 Constitutional No fever 06/05/2014 Constitutional No insomnia 06/05/2014 Constitutional No malaise 06/05/2014 Constitutional No weight loss 06/05/2014 Constitutional No weight gain 06/05/2014 Constitutional No recent illness 04/03/2014 Constitutional No anorexia 04/03/2014 Constitutional No night sweats 04/03/2014 Constitutional No chills 04/03/2014 Constitutional No diaphoresis 04/03/2014 Constitutional fatigue 04/03/2014 Constitutional No fever 04/03/2014 Constitutional No insomnia 04/03/2014 Constitutional No malaise 04/03/2014 Eyes No eye discharge 04/03/2014 Eyes No eye erythema 04/03/2014 Ears/Nose/Throat/Neck headache 04/03/2014 Ears/Nose/Throat/Neck nasal allergies 04/03/2014 Ears/Nose/Throat/Neck nasal discharge 04/03/2014 Ears/Nose/Throat/Neck sinus congestion 04/03/2014 Ears/Nose/Throat/Neck No sore throat 04/03/2014 Ears/Nose/Throat/Neck No otalgia 04/03/2014 Cardiovascular No chest pain/pressure 04/03/2014 Cardiovascular No dyspnea 04/03/2014 Respiratory No productive sputum 04/03/2014 Respiratory No cough 04/03/2014 Gastrointestinal No abdominal pain 04/03/2014 Gastrointestinal No constipation 04/03/2014 Gastrointestinal No diarrhea 04/03/2014 Genitourinary/Nephrology No dysuria 04/03/2014 Dermatologic No rash 04/03/2014 Dermatologic No sores 04/03/2014 Constitutional No recent illness 03/07/2014 Constitutional No anorexia 03/07/2014 Constitutional No night sweats 03/07/2014 Constitutional No chills 03/07/2014 Constitutional No diaphoresis 03/07/2014 Constitutional fatigue 03/07/2014 Constitutional No fever 03/07/2014 Constitutional No insomnia 03/07/2014 Constitutional No malaise 03/07/2014 Constitutional No recent illness 11/21/2013 Constitutional No anorexia 11/21/2013 Constitutional No night sweats 11/21/2013 Constitutional No chills 11/21/2013 Constitutional No diaphoresis 11/21/2013 Constitutional fatigue 11/21/2013 Constitutional No fever 11/21/2013 Constitutional No insomnia 11/21/2013 Constitutional No malaise 11/21/2013 Eyes No eye discharge 11/21/2013 Eyes No eye erythema 11/21/2013 Ears/Nose/Throat/Neck dizziness 11/21/2013 Ears/Nose/Throat/Neck No headache 11/21/2013 Ears/Nose/Throat/Neck No nasal discharge 11/21/2013 Ears/Nose/Throat/Neck nasal allergies 11/21/2013 Ears/Nose/Throat/Neck No otalgia 11/21/2013 Ears/Nose/Throat/Neck No sore throat 11/21/2013 Cardiovascular No chest pain/pressure 11/21/2013 Cardiovascular No dyspnea 11/21/2013 Respiratory No productive sputum 11/21/2013 Respiratory No chest congestion 11/21/2013 Respiratory No cough 11/21/2013 Respiratory dyspnea on exertion 11/21/2013 Gastrointestinal No abdominal pain 11/21/2013 Gastrointestinal No constipation 11/21/2013 Gastrointestinal No diarrhea 11/21/2013 Gastrointestinal No vomiting 11/21/2013 Gastrointestinal No nausea 11/21/2013 Genitourinary/Nephrology No dysuria 11/21/2013 Dermatologic No rash 11/21/2013 Dermatologic No sores 11/21/2013 Neurologic No alteration of consciousness 11/21/2013 Constitutional No recent illness 09/24/2013 Constitutional No anorexia 09/24/2013 Constitutional No night sweats 09/24/2013 Constitutional No diaphoresis 09/24/2013 Constitutional No chills 09/24/2013 Constitutional fatigue 09/24/2013 Constitutional No fever 09/24/2013 Constitutional insomnia 09/24/2013 Constitutional No malaise 09/24/2013 Eyes No eye discharge 09/24/2013 Eyes No eye erythema 09/24/2013 Ears/Nose/Throat/Neck No dizziness 09/24/2013 Ears/Nose/Throat/Neck headache 09/24/2013 Ears/Nose/Throat/Neck nasal allergies 09/24/2013 Cardiovascular No chest pain/pressure 09/24/2013 Respiratory No cough 09/24/2013 Gastrointestinal No abdominal pain 09/24/2013 Gastrointestinal No constipation 09/24/2013 Gastrointestinal No diarrhea 09/24/2013 Genitourinary/Nephrology No dysuria 09/24/2013 Constitutional No recent illness 09/19/2013 Constitutional No anorexia 09/19/2013 Constitutional No night sweats 09/19/2013 Constitutional No chills 09/19/2013 Constitutional No diaphoresis 09/19/2013 Constitutional No fever 09/19/2013 Constitutional No malaise 09/19/2013 Eyes No eye discharge 09/19/2013 Eyes No eye erythema 09/19/2013 Ears/Nose/Throat/Neck No dizziness 09/19/2013 Ears/Nose/Throat/Neck headache 09/19/2013 Ears/Nose/Throat/Neck nasal allergies 09/19/2013 Cardiovascular No chest pain/pressure 09/19/2013 Respiratory No cough 09/19/2013 Gastrointestinal No abdominal pain 09/19/2013 Gastrointestinal No constipation 09/19/2013 Gastrointestinal No diarrhea 09/19/2013 Genitourinary/Nephrology No dysuria 09/19/2013 Constitutional No recent illness 08/05/2013 Constitutional No night sweats 08/05/2013 Constitutional No anorexia 08/05/2013 Constitutional No chills 08/05/2013 Constitutional No diaphoresis 08/05/2013 Constitutional No fatigue 08/05/2013 Constitutional No fever 08/05/2013 Constitutional No insomnia 08/05/2013 Constitutional No malaise 08/05/2013 Eyes eye discharge 08/05/2013 Eyes eye erythema 08/05/2013 Ears/Nose/Throat/Neck No dizziness 08/05/2013 Ears/Nose/Throat/Neck nasal allergies 08/05/2013 Ears/Nose/Throat/Neck No nasal discharge 08/05/2013 Ears/Nose/Throat/Neck No headache 08/05/2013 Cardiovascular No chest pain/pressure 08/05/2013 Ears/Nose/Throat/Neck oral pain 08/05/2013 Respiratory No productive sputum 08/05/2013 Respiratory No chest congestion 08/05/2013 Respiratory No cough 08/05/2013 Gastrointestinal No abdominal pain 08/05/2013 Gastrointestinal No constipation 08/05/2013 Gastrointestinal No diarrhea 08/05/2013 Gastrointestinal No vomiting 08/05/2013 Gastrointestinal No nausea 08/05/2013 Genitourinary/Nephrology No dysuria 08/05/2013 Musculoskeletal No joint complaint 08/05/2013 Dermatologic No rash 08/05/2013 Dermatologic No sores 08/05/2013 Constitutional No fever 07/10/2013 Constitutional malaise 07/10/2013 Constitutional No chills 07/10/2013 Eyes No blindness 07/10/2013 Eyes No vision change 07/10/2013 Ears/Nose/Throat/Neck hoarseness 07/10/2013 Ears/Nose/Throat/Neck headache 07/10/2013 Ears/Nose/Throat/Neck facial pain 07/10/2013 Ears/Nose/Throat/Neck No postnasal drip 07/10/2013 Ears/Nose/Throat/Neck sinus congestion 07/10/2013 Ears/Nose/Throat/Neck otalgia 07/10/2013 Ears/Nose/Throat/Neck oral pain 07/10/2013 Respiratory cough 07/10/2013 Respiratory chest tightness 07/10/2013 Respiratory chest congestion 07/10/2013 Respiratory No aspiration 07/10/2013 Respiratory nocturnal cough 07/10/2013 Respiratory dyspnea on exertion 07/10/2013 Psychiatric No anxiety 07/10/2013 Psychiatric No depression 07/10/2013 Gastrointestinal No constipation 07/10/2013 Gastrointestinal No diarrhea 07/10/2013 Constitutional No recent illness 07/10/2013 Constitutional fatigue 07/10/2013 Eyes No eye discharge 07/10/2013 Eyes No eye erythema 07/10/2013 Ears/Nose/Throat/Neck No dizziness 07/10/2013 Ears/Nose/Throat/Neck No otitis media 07/10/2013 Ears/Nose/Throat/Neck sore throat 07/10/2013 Cardiovascular No chest pain/pressure 07/10/2013 Respiratory No productive sputum 07/10/2013 Respiratory No dyspnea 07/10/2013 Gastrointestinal No abdominal pain 07/10/2013 Gastrointestinal No nausea 07/10/2013 Gastrointestinal No vomiting 07/10/2013 Constitutional No recent illness 06/03/2013 Constitutional No chills 06/03/2013 Constitutional fatigue 06/03/2013 Constitutional No fever 06/03/2013 Constitutional malaise 06/03/2013 Eyes No blindness 06/03/2013 Eyes No eye discharge 06/03/2013 Eyes No eye erythema 06/03/2013 Eyes No vision change 06/03/2013 Ears/Nose/Throat/Neck No dizziness 06/03/2013 Ears/Nose/Throat/Neck facial pain 06/03/2013 Ears/Nose/Throat/Neck headache 06/03/2013 Ears/Nose/Throat/Neck sore throat 06/03/2013 Ears/Nose/Throat/Neck otalgia 06/03/2013 Ears/Nose/Throat/Neck No otitis media 06/03/2013 Ears/Nose/Throat/Neck No postnasal drip 06/03/2013 Ears/Nose/Throat/Neck sinus congestion 06/03/2013 Cardiovascular No chest pain/pressure 06/03/2013 Respiratory No productive sputum 06/03/2013 Respiratory No aspiration 06/03/2013 Respiratory chest congestion 06/03/2013 Respiratory chest tightness 06/03/2013 Respiratory cough 06/03/2013 Respiratory dyspnea on exertion 06/03/2013 Respiratory nocturnal cough 06/03/2013 Respiratory No dyspnea 06/03/2013 Gastrointestinal No abdominal pain 06/03/2013 Gastrointestinal No constipation 06/03/2013 Gastrointestinal No diarrhea 06/03/2013 Gastrointestinal No nausea 06/03/2013 Gastrointestinal No vomiting 06/03/2013 Psychiatric No anxiety 06/03/2013 Psychiatric No depression 06/03/2013 Dermatologic No rash 06/03/2013 Dermatologic No scar 06/03/2013 Musculoskeletal arthralgia(s) 06/03/2013 Constitutional No anorexia 05/07/2013 Constitutional No chills 05/07/2013 Constitutional No fatigue 05/07/2013 Ears/Nose/Throat/Neck No dizziness 05/07/2013 Ears/Nose/Throat/Neck No headache 05/07/2013 Respiratory No chest congestion 05/07/2013 Respiratory No chest tightness 05/07/2013 Respiratory No cough 05/07/2013 Genitourinary/Nephrology No urinary urgency 05/07/2013 Genitourinary/Nephrology No urinary frequency 05/07/2013 Musculoskeletal No back pain 05/07/2013 Neurologic No dizziness 05/07/2013 Constitutional No night sweats 05/07/2013 Constitutional No fever 05/07/2013 Respiratory No productive sputum 05/07/2013 Gastrointestinal No diarrhea 05/07/2013 Gastrointestinal No nausea 05/07/2013 Gastrointestinal No vomiting 05/07/2013 Eyes No vision change 05/07/2013 Constitutional No recent illness 12/03/2012 Constitutional No anorexia 12/03/2012 Constitutional No night sweats 12/03/2012 Constitutional No chills 12/03/2012 Constitutional No diaphoresis 12/03/2012 Constitutional No fever 12/03/2012 Constitutional insomnia 12/03/2012 Constitutional No malaise 12/03/2012 Eyes No eye discharge 12/03/2012 Eyes No eye erythema 12/03/2012 Ears/Nose/Throat/Neck No dizziness 12/03/2012 Cardiovascular No chest pain/pressure 12/03/2012 Respiratory No productive sputum 12/03/2012 Respiratory No cough 12/03/2012 Gastrointestinal No abdominal pain 12/03/2012 Gastrointestinal No constipation 12/03/2012 Gastrointestinal No diarrhea 12/03/2012 Gastrointestinal No nausea 12/03/2012 Gastrointestinal No vomiting 12/03/2012 Genitourinary/Nephrology No dysuria 12/03/2012 Constitutional recent illness 09/24/2012 Constitutional No anorexia 09/24/2012 Constitutional No night sweats 09/24/2012 Constitutional No chills 09/24/2012 Constitutional No diaphoresis 09/24/2012 Constitutional fatigue 09/24/2012 Constitutional No fever 09/24/2012 Constitutional No insomnia 09/24/2012 Eyes No eye discharge 09/24/2012 Eyes No eye erythema 09/24/2012 Cardiovascular No chest pain/pressure 09/24/2012 Respiratory No productive sputum 09/24/2012 Respiratory No chest congestion 09/24/2012 Respiratory No cough 09/24/2012 Gastrointestinal No vomiting 09/24/2012 Gastrointestinal No nausea 09/24/2012 Gastrointestinal No abdominal pain 09/24/2012 Gastrointestinal No constipation 09/24/2012 Gastrointestinal No diarrhea 09/24/2012 Musculoskeletal No joint complaint 09/24/2012 Eyes No eye discharge 09/10/2012 Eyes No eye erythema 09/10/2012 Ears/Nose/Throat/Neck No dizziness 09/10/2012 Ears/Nose/Throat/Neck headache 09/10/2012 Ears/Nose/Throat/Neck nasal allergies 09/10/2012 Ears/Nose/Throat/Neck nasal discharge 09/10/2012 Ears/Nose/Throat/Neck sinus congestion 09/10/2012 Cardiovascular No chest pain/pressure 09/10/2012 Respiratory No productive sputum 09/10/2012 Respiratory No cough 09/10/2012 Gastrointestinal No abdominal pain 09/10/2012 Gastrointestinal No constipation 09/10/2012 Gastrointestinal No diarrhea 09/10/2012 Gastrointestinal No nausea 09/10/2012 Gastrointestinal No vomiting 09/10/2012 Genitourinary/Nephrology No dysuria 09/10/2012 Ears/Nose/Throat/Neck No sore throat 09/10/2012 Ears/Nose/Throat/Neck No neck pain 09/10/2012 Ears/Nose/Throat/Neck taste change 09/10/2012 Psychiatric depression 09/10/2012 Psychiatric No anxiety 09/10/2012 Dermatologic No rash 09/10/2012 Dermatologic No sores 09/10/2012 Musculoskeletal myalgias 09/10/2012 Musculoskeletal No muscle weakness 09/10/2012 Musculoskeletal joint complaint 09/10/2012 Constitutional No recent illness 08/08/2012 Constitutional No anorexia 08/08/2012 Constitutional No night sweats 08/08/2012 Constitutional No chills 08/08/2012 Constitutional No diaphoresis 08/08/2012 Constitutional No fever 08/08/2012 Constitutional insomnia 08/08/2012 Constitutional No malaise 08/08/2012 Eyes No eye discharge 08/08/2012 Eyes No eye erythema 08/08/2012 Ears/Nose/Throat/Neck No dizziness 08/08/2012 Ears/Nose/Throat/Neck headache 08/08/2012 Cardiovascular No chest pain/pressure 08/08/2012 Ears/Nose/Throat/Neck nasal discharge 08/08/2012 Ears/Nose/Throat/Neck nasal allergies 08/08/2012 Ears/Nose/Throat/Neck sinus congestion 08/08/2012 Respiratory No productive sputum 08/08/2012 Respiratory No cough 08/08/2012 Gastrointestinal No abdominal pain 08/08/2012 Gastrointestinal No nausea 08/08/2012 Gastrointestinal No vomiting 08/08/2012 Gastrointestinal No constipation 08/08/2012 Gastrointestinal No diarrhea 08/08/2012 Genitourinary/Nephrology No dysuria 08/08/2012 Constitutional recent illness 02/15/2012 Constitutional No chills 02/15/2012 Constitutional No fever 02/15/2012 Ears/Nose/Throat/Neck No nasal allergies 02/15/2012 Ears/Nose/Throat/Neck No sore throat 02/15/2012 Ears/Nose/Throat/Neck No sinus congestion 02/15/2012 Cardiovascular No chest pain/pressure 02/15/2012 Cardiovascular dyspnea 02/15/2012 Respiratory No chest congestion 02/15/2012 Respiratory No chest tightness 02/15/2012 Respiratory No cough 02/15/2012 Respiratory No cigarette smoking 02/15/2012 Gastrointestinal constipation 02/15/2012 Gastrointestinal diarrhea 02/15/2012 Musculoskeletal No stiffness 02/15/2012 Musculoskeletal No swelling 02/15/2012 Dermatologic No rash 02/15/2012 Dermatologic No sores 02/15/2012 Constitutional No anorexia 11/10/2011 Constitutional No chills 11/10/2011 Constitutional No fatigue 11/10/2011 Ears/Nose/Throat/Neck No dizziness 11/10/2011 Ears/Nose/Throat/Neck No headache 11/10/2011 Respiratory No chest congestion 11/10/2011 Respiratory No chest tightness 11/10/2011 Respiratory No cough 11/10/2011 Genitourinary/Nephrology No urinary urgency 11/10/2011 Genitourinary/Nephrology No urinary frequency 11/10/2011 Musculoskeletal No back pain 11/10/2011 Neurologic No dizziness 11/10/2011 Psychiatric anxiety 11/10/2011 Psychiatric depression 11/10/2011 Gastrointestinal abdominal pain 11/10/2011 Gastrointestinal diarrhea 11/10/2011 Constitutional No anorexia 08/01/2011 Constitutional No chills 08/01/2011 Constitutional No fatigue 08/01/2011 Ears/Nose/Throat/Neck No dizziness 08/01/2011 Ears/Nose/Throat/Neck No headache 08/01/2011 Respiratory No chest congestion 08/01/2011 Respiratory No chest tightness 08/01/2011 Respiratory No cough 08/01/2011 Genitourinary/Nephrology No urinary urgency 08/01/2011 Genitourinary/Nephrology No urinary frequency 08/01/2011 Musculoskeletal No back pain 08/01/2011 Neurologic No dizziness 08/01/2011 Constitutional No recent illness 07/14/2011 Constitutional fatigue 07/14/2011 Constitutional fever 07/14/2011 Eyes No eye discharge 07/14/2011 Eyes No eye erythema 07/14/2011 Ears/Nose/Throat/Neck No dizziness 07/14/2011 Ears/Nose/Throat/Neck headache 07/14/2011 Ears/Nose/Throat/Neck No otitis media 07/14/2011 Ears/Nose/Throat/Neck sinus congestion 07/14/2011 Ears/Nose/Throat/Neck sore throat 07/14/2011 Cardiovascular No chest pain/pressure 07/14/2011 Respiratory No productive sputum 07/14/2011 Respiratory cough 07/14/2011 Respiratory No dyspnea 07/14/2011 Gastrointestinal No nausea 07/14/2011 Gastrointestinal No vomiting 07/14/2011 Gastrointestinal No abdominal pain 07/14/2011 Gastrointestinal No constipation 07/14/2011 Gastrointestinal No diarrhea 07/14/2011 Constitutional No night sweats 05/23/2011 Constitutional No fever 05/23/2011 Gastrointestinal constipation 05/23/2011 Gastrointestinal No diarrhea 05/23/2011 Gastrointestinal No nausea 05/23/2011 Gastrointestinal No vomiting 05/23/2011 Cardiovascular No chest pain/pressure 05/23/2011 Ears/Nose/Throat/Neck headache 05/23/2011 Eyes No eye discharge 05/23/2011 Eyes No eye erythema 05/23/2011 Cardiovascular No dyspnea 05/23/2011 Cardiovascular No edema 05/23/2011 Cardiovascular No fatigue 05/23/2011 Cardiovascular No near-syncope/dizziness 05/23/2011 Respiratory No productive sputum 05/23/2011 Respiratory No chest congestion 05/23/2011 Respiratory No chest tightness 05/23/2011 Respiratory No cough 05/23/2011 Constitutional No chills 05/03/2011 Constitutional No fatigue 05/03/2011 Respiratory cough 05/03/2011 Respiratory chest congestion 05/03/2011 Gastrointestinal No diarrhea 05/03/2011 Cardiovascular No edema 05/03/2011 Cardiovascular No chest pain/pressure 05/03/2011 Cardiovascular No palpitations 05/03/2011 Ears/Nose/Throat/Neck No dizziness 05/03/2011 Ears/Nose/Throat/Neck facial pain 05/03/2011 Ears/Nose/Throat/Neck No facial swelling 05/03/2011 Ears/Nose/Throat/Neck No hearing loss 05/03/2011 Ears/Nose/Throat/Neck No hoarseness 05/03/2011 Ears/Nose/Throat/Neck nasal allergies 05/03/2011 Ears/Nose/Throat/Neck nasal discharge 05/03/2011 Ears/Nose/Throat/Neck No neck pain 05/03/2011 Ears/Nose/Throat/Neck No oral pain 05/03/2011 Ears/Nose/Throat/Neck postnasal drip 05/03/2011 Ears/Nose/Throat/Neck sinus congestion 05/03/2011 Ears/Nose/Throat/Neck No sore throat 05/03/2011 Eyes No eye discharge 05/03/2011 Eyes No eye erythema 05/03/2011 Respiratory No chest tightness 05/03/2011 Respiratory No dyspnea on exertion 05/03/2011 Respiratory No dyspnea 05/03/2011 Gastrointestinal No nausea 05/03/2011 Gastrointestinal No vomiting 05/03/2011 Gastrointestinal No constipation 05/03/2011 Gastrointestinal No constipation 04/25/2011 Musculoskeletal No stiffness 04/25/2011 Musculoskeletal No swelling 04/25/2011 Musculoskeletal back pain 04/25/2011 Musculoskeletal No joint complaint 04/25/2011 Musculoskeletal No muscle weakness 04/25/2011 Musculoskeletal No myalgias 04/25/2011 Neurologic No dizziness 04/25/2011 Neurologic No gait abnormality 04/25/2011 Neurologic No headache 04/25/2011 Neurologic No paresthesia 04/25/2011 Neurologic No seizure 04/25/2011 Psychiatric depression 04/25/2011 Psychiatric No suicidality 04/25/2011 Constitutional No recent illness 04/25/2011 Constitutional fatigue 04/25/2011 Constitutional No fever 04/25/2011 Constitutional No insomnia 04/25/2011 Constitutional No malaise 04/25/2011 Cardiovascular No chest pain/pressure 04/25/2011 Cardiovascular No dyspnea 04/25/2011 Cardiovascular No edema 04/25/2011 Cardiovascular fatigue 04/25/2011 Cardiovascular hypertension 04/25/2011 Cardiovascular No orthopnea 04/25/2011 Cardiovascular No syncope 04/25/2011 Respiratory No chest congestion 04/25/2011 Respiratory No chest tightness 04/25/2011 Respiratory No cough 04/25/2011 Respiratory No dyspnea 04/25/2011 Gastrointestinal No abdominal pain 04/25/2011 Gastrointestinal No diarrhea 04/25/2011 Gastrointestinal No nausea 04/25/2011 Gastrointestinal No vomiting 04/25/2011 Physical Exam Exam Name System Name Item Name Status Result Effective Dates Notes Full Exam - Dermatology Constitutional general appearance Overall: well nourished 02/25/2019 None Full Exam - Dermatology Constitutional general appearance Overall: well developed 02/25/2019 None Full Exam - Dermatology Constitutional general appearance Overall: in no acute distress 02/25/2019 None Full Exam - Dermatology Constitutional general appearance Overall: of normal body habitus 02/25/2019 None Full Exam - Dermatology Constitutional general appearance Overall: well groomed 02/25/2019 None Full Exam - Dermatology Psychiatric orientation Overall: oriented to person, place and time 02/25/2019 None Full Exam - Dermatology Integument insp & palp - left upper extremity Location: on the forearm 02/25/2019 None Full Exam - Dermatology Integument insp & palp - left upper extremity Color: erythematous 02/25/2019 2cm area erythema left forearm near elbow Full Exam - Dermatology Constitutional general appearance Overall: well nourished 02/20/2019 None Full Exam - Dermatology Constitutional general appearance Overall: well developed 02/20/2019 None Full Exam - Dermatology Constitutional general appearance Overall: in no acute distress 02/20/2019 None Full Exam - Dermatology Eyes conjunctiva/eyelids Overall: clear conjunctiva bilaterally 02/20/2019 None Full Exam - Dermatology Eyes conjunctiva/eyelids Overall: clear corneas 02/20/2019 None Full Exam - Dermatology Eyes conjunctiva/eyelids Overall: normal eyelids 02/20/2019 None Full Exam - Dermatology Ears/Nose/Throat lips/teeth/gingiva Overall: benign lips 02/20/2019 None Full Exam - Dermatology Ears/Nose/Throat oropharynx Overall: clear oral mucosa 02/20/2019 None Full Exam - Dermatology Respiratory respiratory effort/rhythm Overall: no retractions 02/20/2019 None Full Exam - Dermatology Respiratory respiratory effort/rhythm Overall: normal rate 02/20/2019 None Full Exam - Dermatology Musculoskeletal head and neck Overall: head atraumatic 02/20/2019 None Full Exam - Dermatology Psychiatric orientation Overall: oriented to person, place and time 02/20/2019 None Full Exam - Dermatology Psychiatric mood and affect Overall: normal mood and affect 02/20/2019 None Full Exam - General 1994 Constitutional general appearance Overall: well developed 01/29/2019 None Full Exam - General 1994 Constitutional general appearance Overall: in no acute distress 01/29/2019 None Full Exam - General 1994 Constitutional general appearance Overall: well nourished 01/29/2019 None Full Exam - General 1994 Eyes conjunctiva/eyelids Overall: conjunctiva clear 01/29/2019 None Full Exam - General 1994 Eyes conjunctiva/eyelids Overall: cornea clear 01/29/2019 None Full Exam - General 1994 Eyes conjunctiva/eyelids Overall: eyelids normal 01/29/2019 None Full Exam - General 1994 Ears/Nose/Throat lips/teeth/gingiva Overall: benign lips 01/29/2019 None Full Exam - General 1994 Ears/Nose/Throat oral cavity/pharynx/larynx Overall: oral mucosa clear 01/29/2019 None Full Exam - General 1994 Respiratory auscultation Overall: breath sounds clear bilaterally 01/29/2019 None Full Exam - General 1994 Respiratory respiratory effort/rhythm Overall: no retractions 01/29/2019 None Full Exam - General 1994 Respiratory respiratory effort/rhythm Overall: normal rate 01/29/2019 None Full Exam - General 1994 Cardiovascular auscultation of heart Overall: regular rate 01/29/2019 None Full Exam - General 1994 Cardiovascular auscultation of heart Overall: normal heart sounds 01/29/2019 None Full Exam - General 1994 Musculoskeletal head and neck Overall: head atraumatic 01/29/2019 None Full Exam - General 1994 Psychiatric orientation/consciousness Overall: oriented to person, place and time 01/29/2019 None Full Exam - General 1994 Psychiatric mood and affect Overall: normal mood and affect 01/29/2019 None Full Exam - General 1994 Psychiatric mood and affect Mood: anxious 01/29/2019 None Full Exam - General 1994 Constitutional general appearance Overall: well developed 11/13/2018 None Full Exam - General 1994 Constitutional general appearance Overall: in no acute distress 11/13/2018 None Full Exam - General 1994 Constitutional general appearance Overall: well nourished 11/13/2018 None Full Exam - General 1994 Eyes pupils and irises Overall: pupils equal, round, reactive to light and accomodation 11/13/2018 None Full Exam - General 1994 Ears/Nose/Throat otoscopic exam Overall: external auditory canals clear 11/13/2018 None Full Exam - General 1994 Ears/Nose/Throat otoscopic exam Tympanic membrane: air-fluid level 11/13/2018 None Full Exam - General 1994 Ears/Nose/Throat oral cavity/pharynx/larynx Overall: oral mucosa clear 11/13/2018 None Full Exam - General 1994 Ears/Nose/Throat oral cavity/pharynx/larynx Overall: no masses 11/13/2018 None Full Exam - General 1994 Respiratory auscultation Overall: breath sounds clear bilaterally 11/13/2018 None Full Exam - General 1994 Respiratory respiratory effort/rhythm Overall: no retractions 11/13/2018 None Full Exam - General 1994 Respiratory respiratory effort/rhythm Overall: normal rate 11/13/2018 None Full Exam - General 1994 Cardiovascular auscultation of heart Overall: regular rate 11/13/2018 None Full Exam - General 1994 Cardiovascular auscultation of heart Overall: normal heart sounds 11/13/2018 None Full Exam - General 1994 Cardiovascular auscultation of heart Overall: no murmurs 11/13/2018 None Full Exam - General 1994 Abdomen abdominal exam Overall: no tenderness 11/13/2018 None Full Exam - General 1994 Abdomen abdominal exam Overall: normal bowel sounds 11/13/2018 None Full Exam - General 1994 Musculoskeletal gait and station Overall: normal gait 11/13/2018 None Full Exam - General 1994 Musculoskeletal gait and station Overall: normal station 11/13/2018 None Full Exam - General 1994 Neurologic gait Overall: no ataxia, no unsteadiness 11/13/2018 None Full Exam - General 1994 Neurologic cranial nerves Overall: crainial nerves 2 - 12 grossly intact 11/13/2018 None Full Exam - General 1994 Psychiatric orientation/consciousness Overall: oriented to person, place and time 11/13/2018 None Full Exam - General 1994 Psychiatric mood and affect Overall: normal mood and affect 11/13/2018 None Full Exam - General 1994 Psychiatric appearance Overall: well-groomed, good eye contact 11/13/2018 None Full Exam - General 1994 Constitutional general appearance Overall: well developed 10/30/2018 None Full Exam - General 1994 Constitutional general appearance Overall: in no acute distress 10/30/2018 None Full Exam - General 1994 Constitutional general appearance Overall: well nourished 10/30/2018 None Full Exam - General 1994 Eyes pupils and irises Overall: pupils equal, round, reactive to light and accomodation 10/30/2018 None Full Exam - General 1994 Ears/Nose/Throat otoscopic exam Overall: external auditory canals clear 10/30/2018 None Full Exam - General 1994 Ears/Nose/Throat otoscopic exam Tympanic membrane: air-fluid level 10/30/2018 None Full Exam - General 1994 Ears/Nose/Throat oral cavity/pharynx/larynx Overall: oral mucosa clear 10/30/2018 None Full Exam - General 1994 Ears/Nose/Throat oral cavity/pharynx/larynx Overall: no masses 10/30/2018 None Full Exam - General 1994 Respiratory auscultation Overall: breath sounds clear bilaterally 10/30/2018 None Full Exam - General 1994 Respiratory respiratory effort/rhythm Overall: no retractions 10/30/2018 None Full Exam - General 1994 Respiratory respiratory effort/rhythm Overall: normal rate 10/30/2018 None Full Exam - General 1994 Cardiovascular auscultation of heart Overall: regular rate 10/30/2018 None Full Exam - General 1994 Cardiovascular auscultation of heart Overall: normal heart sounds 10/30/2018 None Full Exam - General 1994 Cardiovascular auscultation of heart Overall: no murmurs 10/30/2018 None Full Exam - General 1994 Abdomen abdominal exam Overall: no tenderness 10/30/2018 None Full Exam - General 1994 Abdomen abdominal exam Overall: normal bowel sounds 10/30/2018 None Full Exam - General 1994 Musculoskeletal gait and station Overall: normal gait 10/30/2018 None Full Exam - General 1994 Musculoskeletal gait and station Overall: normal station 10/30/2018 None Full Exam - General 1994 Neurologic gait Overall: no ataxia, no unsteadiness 10/30/2018 None Full Exam - General 1994 Neurologic cranial nerves Overall: crainial nerves 2 - 12 grossly intact 10/30/2018 None Full Exam - General 1994 Psychiatric orientation/consciousness Overall: oriented to person, place and time 10/30/2018 None Full Exam - General 1994 Psychiatric mood and affect Overall: normal mood and affect 10/30/2018 None Full Exam - General 1994 Psychiatric appearance Overall: well-groomed, good eye contact 10/30/2018 None Full Exam - ENT Constitutional general appearance Overall: well nourished 10/08/2018 None Full Exam - ENT Constitutional general appearance Overall: well developed 10/08/2018 None Full Exam - ENT Constitutional general appearance Overall: in no acute distress 10/08/2018 None Full Exam - ENT Ears/Nose/Throat otoscopic exam Overall: external auditory canals normal 10/08/2018 None Full Exam - ENT Ears/Nose/Throat otoscopic exam Overall: tympanic membranes normal 10/08/2018 None Full Exam - ENT Ears/Nose/Throat otoscopic exam Right tympanic membrane: air-fluid level 10/08/2018 None Full Exam - ENT Ears/Nose/Throat oropharynx Overall: oral mucosa clear 10/08/2018 None Full Exam - ENT Respiratory auscultation Overall: breath sounds clear bilaterally 10/08/2018 None Full Exam - ENT Cardiovascular auscultation of heart Overall: regular rate 10/08/2018 None Full Exam - ENT Cardiovascular auscultation of heart Overall: normal heart sounds 10/08/2018 None Full Exam - ENT Cardiovascular auscultation of heart Overall: no murmurs 10/08/2018 None Full Exam - ENT Lymphatic palpation of lymph nodes Overall: anterior cervical chain benign 10/08/2018 None Full Exam - ENT Lymphatic palpation of lymph nodes Overall: posterior cervical chain benign 10/08/2018 None Full Exam - ENT Integument inspection of skin Overall: no rash, lesions 10/08/2018 None Full Exam - ENT Neurologic orientation Overall: oriented to person, place and time 10/08/2018 None Full Exam - Cardiology Ears/Nose/Throat oral mucosa Overall: oral mucosa clear 10/08/2018 None Full Exam - Cardiology Eyes conjunctiva/eyelids Left conjunctiva: discharge 10/08/2018 None Full Exam - Cardiology Eyes conjunctiva/eyelids Left conjunctiva: erythema 10/08/2018 None Full Exam - Cardiology Eyes conjunctiva/eyelids Right conjunctiva: discharge 10/08/2018 None Full Exam - Cardiology Eyes conjunctiva/eyelids Right conjunctiva: erythema 10/08/2018 None Full Exam - General 1994 Constitutional general appearance Overall: well developed 07/16/2018 None Full Exam - General 1994 Constitutional general appearance Overall: in no acute distress 07/16/2018 None Full Exam - General 1994 Constitutional general appearance Overall: well nourished 07/16/2018 None Full Exam - General 1994 Eyes conjunctiva/eyelids Overall: conjunctiva clear 07/16/2018 None Full Exam - General 1994 Eyes conjunctiva/eyelids Overall: cornea clear 07/16/2018 None Full Exam - General 1994 Eyes conjunctiva/eyelids Overall: eyelids normal 07/16/2018 None Full Exam - General 1994 Ears/Nose/Throat lips/teeth/gingiva Overall: benign lips 07/16/2018 None Full Exam - General 1994 Ears/Nose/Throat oral cavity/pharynx/larynx Overall: oral mucosa clear 07/16/2018 None Full Exam - General 1994 Respiratory respiratory effort/rhythm Overall: normal rate 07/16/2018 None Full Exam - General 1994 Respiratory respiratory effort/rhythm Overall: no retractions 07/16/2018 None Full Exam - General 1994 Respiratory auscultation Overall: breath sounds clear bilaterally 07/16/2018 None Full Exam - General 1994 Cardiovascular auscultation of heart Overall: normal heart sounds 07/16/2018 None Full Exam - General 1994 Cardiovascular auscultation of heart Overall: regular rate 07/16/2018 None Full Exam - General 1994 Musculoskeletal head and neck Overall: head atraumatic 07/16/2018 None Full Exam - General 1994 Neurologic cranial nerves Overall: crainial nerves 2 - 12 grossly intact 07/16/2018 None Full Exam - General 1994 Psychiatric orientation/consciousness Overall: oriented to person, place and time 07/16/2018 None Full Exam - General 1994 Psychiatric mood and affect Overall: normal mood and affect 07/16/2018 None Full Exam - General 1994 Psychiatric mood and affect Mood: anxious 07/16/2018 None Full Exam - ENT Constitutional general appearance Overall: well nourished 07/10/2018 None Full Exam - ENT Constitutional general appearance Overall: well developed 07/10/2018 None Full Exam - ENT Constitutional general appearance Overall: in no acute distress 07/10/2018 None Full Exam - ENT Ears/Nose/Throat otoscopic exam Overall: external auditory canals normal 07/10/2018 None Full Exam - ENT Ears/Nose/Throat otoscopic exam Overall: tympanic membranes normal 07/10/2018 None Full Exam - ENT Ears/Nose/Throat oropharynx Overall: oral mucosa clear 07/10/2018 None Full Exam - ENT Face and Head palpation Left maxillary sinus: tender 07/10/2018 None Full Exam - ENT Face and Head palpation Right maxillary sinus: tender 07/10/2018 None Full Exam - ENT Respiratory auscultation Overall: breath sounds clear bilaterally 07/10/2018 None Full Exam - ENT Cardiovascular auscultation of heart Overall: regular rate 07/10/2018 None Full Exam - ENT Cardiovascular auscultation of heart Overall: normal heart sounds 07/10/2018 None Full Exam - ENT Cardiovascular auscultation of heart Overall: no murmurs 07/10/2018 None Full Exam - ENT Lymphatic palpation of lymph nodes Overall: anterior cervical chain benign 07/10/2018 None Full Exam - ENT Lymphatic palpation of lymph nodes Overall: posterior cervical chain benign 07/10/2018 None Full Exam - ENT Integument inspection of skin Overall: no rash, lesions 07/10/2018 None Full Exam - ENT Neurologic orientation Overall: oriented to person, place and time 07/10/2018 None Full Exam - ENT Ears/Nose/Throat otoscopic exam Right tympanic membrane: air-fluid level 07/10/2018 None Full Exam - ENT Constitutional general appearance Overall: well nourished 05/28/2018 None Full Exam - ENT Constitutional general appearance Overall: well developed 05/28/2018 None Full Exam - ENT Constitutional general appearance Overall: in no acute distress 05/28/2018 None Full Exam - ENT Ears/Nose/Throat otoscopic exam Overall: external auditory canals normal 05/28/2018 None Full Exam - ENT Ears/Nose/Throat otoscopic exam Overall: tympanic membranes normal 05/28/2018 None Full Exam - ENT Ears/Nose/Throat oropharynx Overall: oral mucosa clear 05/28/2018 None Full Exam - ENT Face and Head palpation Left maxillary sinus: tender 05/28/2018 None Full Exam - ENT Face and Head palpation Right maxillary sinus: tender 05/28/2018 None Full Exam - ENT Respiratory auscultation Overall: breath sounds clear bilaterally 05/28/2018 None Full Exam - ENT Cardiovascular auscultation of heart Overall: regular rate 05/28/2018 None Full Exam - ENT Cardiovascular auscultation of heart Overall: normal heart sounds 05/28/2018 None Full Exam - ENT Cardiovascular auscultation of heart Overall: no murmurs 05/28/2018 None Full Exam - ENT Lymphatic palpation of lymph nodes Overall: anterior cervical chain benign 05/28/2018 None Full Exam - ENT Lymphatic palpation of lymph nodes Overall: posterior cervical chain benign 05/28/2018 None Full Exam - ENT Integument inspection of skin Overall: no rash, lesions 05/28/2018 None Full Exam - ENT Neurologic orientation Overall: oriented to person, place and time 05/28/2018 None Full Exam - ENT Ears/Nose/Throat otoscopic exam Right tympanic membrane: erythematous 05/28/2018 mild Full Exam - Dermatology Constitutional general appearance Overall: well nourished 02/07/2018 None Full Exam - Dermatology Constitutional general appearance Overall: well developed 02/07/2018 None Full Exam - Dermatology Constitutional general appearance Overall: in no acute distress 02/07/2018 None Full Exam - Dermatology Eyes conjunctiva/eyelids Overall: clear conjunctiva bilaterally 02/07/2018 None Full Exam - Dermatology Eyes conjunctiva/eyelids Overall: clear corneas 02/07/2018 None Full Exam - Dermatology Eyes conjunctiva/eyelids Overall: normal eyelids 02/07/2018 None Full Exam - Dermatology Ears/Nose/Throat lips/teeth/gingiva Overall: benign lips 02/07/2018 None Full Exam - Dermatology Respiratory respiratory effort/rhythm Overall: normal rate 02/07/2018 None Full Exam - Dermatology Respiratory respiratory effort/rhythm Overall: no retractions 02/07/2018 None Full Exam - Dermatology Musculoskeletal head and neck Overall: head atraumatic 02/07/2018 None Full Exam - Dermatology Integument insp & palp - left lower extremity Lesion: skin tear 02/07/2018 None Full Exam - Dermatology Integument insp & palp - left lower extremity Location: on the calf 02/07/2018 None Full Exam - Dermatology Integument insp & palp - left lower extremity Color: erythematous 02/07/2018 approximately 1 inch x 2.5 inches Full Exam - Dermatology Integument insp & palp - right lower extremity Lesion: skin tear 02/07/2018 None Full Exam - Dermatology Integument insp & palp - right lower extremity Location: on the driver 02/07/2018 None Full Exam - Dermatology Integument insp & palp - right lower extremity Color: erythematous 02/07/2018 approximately 1 inch x 2 inches Full Exam - Dermatology Psychiatric orientation Overall: oriented to person, place and time 02/07/2018 None Full Exam - Dermatology Psychiatric mood and affect Overall: normal mood and affect 02/07/2018 None Full Exam - ENT Constitutional general appearance Overall: well nourished 01/19/2018 None Full Exam - ENT Constitutional general appearance Overall: well developed 01/19/2018 None Full Exam - ENT Constitutional general appearance Overall: in no acute distress 01/19/2018 None Full Exam - ENT Ears/Nose/Throat otoscopic exam Overall: external auditory canals normal 01/19/2018 None Full Exam - ENT Ears/Nose/Throat otoscopic exam Overall: tympanic membranes normal 01/19/2018 None Full Exam - ENT Ears/Nose/Throat oropharynx Overall: oral mucosa clear 01/19/2018 None Full Exam - ENT Face and Head palpation Left maxillary sinus: tender 01/19/2018 None Full Exam - ENT Face and Head palpation Right maxillary sinus: tender 01/19/2018 None Full Exam - ENT Respiratory auscultation Overall: breath sounds clear bilaterally 01/19/2018 None Full Exam - ENT Cardiovascular auscultation of heart Overall: regular rate 01/19/2018 None Full Exam - ENT Cardiovascular auscultation of heart Overall: normal heart sounds 01/19/2018 None Full Exam - ENT Cardiovascular auscultation of heart Overall: no murmurs 01/19/2018 None Full Exam - ENT Lymphatic palpation of lymph nodes Overall: anterior cervical chain benign 01/19/2018 None Full Exam - ENT Lymphatic palpation of lymph nodes Overall: posterior cervical chain benign 01/19/2018 None Full Exam - ENT Integument inspection of skin Overall: no rash, lesions 01/19/2018 None Full Exam - ENT Neurologic orientation Overall: oriented to person, place and time 01/19/2018 None Full Exam - General 1994 Constitutional general appearance Overall: well developed 11/23/2017 None Full Exam - General 1994 Constitutional general appearance Overall: in no acute distress 11/23/2017 None Full Exam - General 1994 Constitutional general appearance Overall: well nourished 11/23/2017 None Full Exam - General 1994 Ears/Nose/Throat lips/teeth/gingiva Overall: benign lips 11/23/2017 None Full Exam - General 1994 Respiratory respiratory effort/rhythm Overall: no retractions 11/23/2017 None Full Exam - General 1994 Respiratory respiratory effort/rhythm Overall: normal rate 11/23/2017 None Full Exam - General 1994 Musculoskeletal head and neck Overall: head atraumatic 11/23/2017 None Full Exam - General 1994 Neurologic cranial nerves Overall: crainial nerves 2 - 12 grossly intact 11/23/2017 None Full Exam - General 1994 Psychiatric orientation/consciousness Overall: oriented to person, place and time 11/23/2017 None Full Exam - General 1994 Psychiatric mood and affect Overall: normal mood and affect 11/23/2017 None Full Exam - General 1994 Psychiatric appearance Overall: well-groomed, good eye contact 11/23/2017 None Full Exam - General 1994 Eyes conjunctiva/eyelids Overall: eyelids normal 11/23/2017 None Full Exam - General 1994 Eyes conjunctiva/eyelids Conjunctiva: erythema 11/23/2017 mild Full Exam - General 1994 Constitutional general appearance Overall: well developed 09/12/2017 None Full Exam - General 1994 Constitutional general appearance Overall: in no acute distress 09/12/2017 None Full Exam - General 1994 Constitutional general appearance Overall: well nourished 09/12/2017 None Full Exam - General 1994 Eyes conjunctiva/eyelids Overall: conjunctiva clear 09/12/2017 None Full Exam - General 1994 Eyes conjunctiva/eyelids Overall: cornea clear 09/12/2017 None Full Exam - General 1994 Eyes conjunctiva/eyelids Overall: eyelids normal 09/12/2017 None Full Exam - General 1994 Eyes pupils and irises Overall: pupils equal, round, reactive to light and accomodation 09/12/2017 None Full Exam - General 1994 Ears/Nose/Throat otoscopic exam Overall: external auditory canals clear 09/12/2017 None Full Exam - General 1994 Ears/Nose/Throat otoscopic exam Tympanic membrane: air-fluid level 09/12/2017 None Full Exam - General 1994 Ears/Nose/Throat lips/teeth/gingiva Overall: benign lips 09/12/2017 None Full Exam - General 1994 Ears/Nose/Throat oral cavity/pharynx/larynx Overall: oral mucosa clear 09/12/2017 None Full Exam - General 1994 Ears/Nose/Throat oral cavity/pharynx/larynx Oropharynx: erythema 09/12/2017 None Full Exam - General 1994 Respiratory auscultation Overall: breath sounds clear bilaterally 09/12/2017 None Full Exam - General 1994 Respiratory respiratory effort/rhythm Overall: no retractions 09/12/2017 None Full Exam - General 1994 Respiratory respiratory effort/rhythm Overall: normal rate 09/12/2017 None Full Exam - General 1994 Cardiovascular auscultation of heart Overall: regular rate 09/12/2017 None Full Exam - General 1994 Cardiovascular auscultation of heart Overall: normal heart sounds 09/12/2017 None Full Exam - General 1994 Abdomen abdominal exam Bowel sounds: hyperactive 09/12/2017 None Full Exam - General 1994 Abdomen abdominal exam Upper quadrant: tender to palpation 09/12/2017 None Full Exam - General 1994 Abdomen abdominal exam Upper quadrant: voluntary guarding 09/12/2017 None Full Exam - General 1994 Abdomen abdominal exam Upper quadrant: no rebound tenderness 09/12/2017 None Full Exam - General 1994 Abdomen abdominal exam Upper quadrant: soft 09/12/2017 None Full Exam - General 1994 Abdomen abdominal exam Lower quadrant: tender to palpation 09/12/2017 None Full Exam - General 1994 Abdomen abdominal exam Lower quadrant: voluntary guarding 09/12/2017 None Full Exam - General 1994 Abdomen abdominal exam Lower quadrant: no rebound tenderness 09/12/2017 None Full Exam - General 1994 Abdomen abdominal exam Lower quadrant: soft 09/12/2017 None Full Exam - General 1994 Abdomen abdominal exam Epigastric: tender to palpation 09/12/2017 None Full Exam - General 1994 Abdomen abdominal exam Epigastric: dull pain 09/12/2017 None Full Exam - General 1994 Abdomen abdominal exam Epigastric: voluntary guarding 09/12/2017 None Full Exam - General 1994 Abdomen abdominal exam Epigastric: no rebound tenderness 09/12/2017 None Full Exam - General 1994 Abdomen abdominal exam Epigastric: soft 09/12/2017 None Full Exam - General 1994 Abdomen abdominal exam Percussion: tympanitic 09/12/2017 None Full Exam - General 1994 Lymphatic neck nodes Overall: posterior cervical chain benign 09/12/2017 None Full Exam - General 1994 Lymphatic neck nodes Overall: anterior cervical chain benign 09/12/2017 None Full Exam - General 1994 Musculoskeletal gait and station Overall: normal station 09/12/2017 None Full Exam - General 1994 Musculoskeletal gait and station Overall: normal gait 09/12/2017 None Full Exam - General 1994 Musculoskeletal head and neck Overall: head atraumatic 09/12/2017 None Full Exam - General 1994 Neurologic cranial nerves Overall: crainial nerves 2 - 12 grossly intact 09/12/2017 None Full Exam - General 1994 Psychiatric orientation/consciousness Overall: oriented to person, place and time 09/12/2017 None Full Exam - General 1994 Psychiatric mood and affect Overall: normal mood and affect 09/12/2017 None Full Exam - General 1994 Psychiatric appearance Overall: well-groomed, good eye contact 09/12/2017 None Full Exam - ENT Constitutional general appearance Overall: well nourished 07/25/2017 None Full Exam - ENT Constitutional general appearance Overall: well developed 07/25/2017 None Full Exam - ENT Constitutional general appearance Overall: in no acute distress 07/25/2017 None Full Exam - ENT Ears/Nose/Throat otoscopic exam Overall: external auditory canals normal 07/25/2017 None Full Exam - ENT Ears/Nose/Throat otoscopic exam Left tympanic membrane: air-fluid level 07/25/2017 None Full Exam - ENT Ears/Nose/Throat otoscopic exam Right tympanic membrane: air-fluid level 07/25/2017 None Full Exam - ENT Ears/Nose/Throat lips/teeth/gingiva Overall: benign lips 07/25/2017 None Full Exam - ENT Ears/Nose/Throat oropharynx Overall: oral mucosa clear 07/25/2017 None Full Exam - ENT Ears/Nose/Throat oropharynx Posterior Pharynx: clear post nasal drainage 07/25/2017 None Full Exam - ENT Ears/Nose/Throat oropharynx Posterior Pharynx: erythema 07/25/2017 None Full Exam - ENT Respiratory inspection Overall: no retractions 07/25/2017 None Full Exam - ENT Respiratory inspection Overall: normal rate 07/25/2017 None Full Exam - ENT Cardiovascular auscultation of heart Rate: normal rate 07/25/2017 None Full Exam - ENT Cardiovascular auscultation of heart Rhythm: regular rhythm 07/25/2017 None Full Exam - ENT Lymphatic palpation of lymph nodes Overall: anterior cervical chain benign 07/25/2017 None Full Exam - ENT Lymphatic palpation of lymph nodes Overall: posterior cervical chain benign 07/25/2017 None Full Exam - ENT Neurologic mood and affect Overall: normal mood 07/25/2017 None Full Exam - ENT Neurologic mood and affect Overall: normal affect 07/25/2017 None Full Exam - ENT Neurologic orientation Overall: oriented to person, place and time 07/25/2017 None Full Exam - ENT Ears/Nose/Throat otoscopic exam Left tympanic membrane: erythematous 07/25/2017 None Full Exam - ENT Respiratory auscultation Diffuse: diminished 07/25/2017 None Full Exam - ENT Respiratory auscultation Right lower lung field: expiratory wheezes 07/25/2017 None Full Exam - ENT Constitutional general appearance Overall: well nourished 06/27/2017 None Full Exam - ENT Constitutional general appearance Overall: well developed 06/27/2017 None Full Exam - ENT Constitutional general appearance Overall: in no acute distress 06/27/2017 None Full Exam - ENT Ears/Nose/Throat otoscopic exam Overall: external auditory canals normal 06/27/2017 None Full Exam - ENT Ears/Nose/Throat otoscopic exam Overall: tympanic membranes normal 06/27/2017 None Full Exam - ENT Ears/Nose/Throat oropharynx Overall: oral mucosa clear 06/27/2017 None Full Exam - ENT Face and Head palpation Left maxillary sinus: tender 06/27/2017 None Full Exam - ENT Face and Head palpation Right maxillary sinus: tender 06/27/2017 None Full Exam - ENT Respiratory auscultation Overall: breath sounds clear bilaterally 06/27/2017 None Full Exam - ENT Cardiovascular auscultation of heart Overall: regular rate 06/27/2017 None Full Exam - ENT Cardiovascular auscultation of heart Overall: normal heart sounds 06/27/2017 None Full Exam - ENT Cardiovascular auscultation of heart Overall: no murmurs 06/27/2017 None Full Exam - ENT Lymphatic palpation of lymph nodes Overall: anterior cervical chain benign 06/27/2017 None Full Exam - ENT Lymphatic palpation of lymph nodes Overall: posterior cervical chain benign 06/27/2017 None Full Exam - ENT Integument inspection of skin Overall: no rash, lesions 06/27/2017 None Full Exam - ENT Neurologic orientation Overall: oriented to person, place and time 06/27/2017 None Full Exam - ENT Abdomen abdominal exam Overall: normal bowel sounds 06/27/2017 None Full Exam - ENT Abdomen abdominal exam Left upper quadrant: tender to palpation 06/27/2017 None Full Exam - ENT Abdomen abdominal exam Left lower quadrant: tender to palpation 06/27/2017 None Full Exam - ENT Abdomen abdominal exam Right upper quadrant: tender to palpation 06/27/2017 None Full Exam - ENT Abdomen abdominal exam Right lower quadrant: tender to palpation 06/27/2017 None Full Exam - ENT Abdomen abdominal exam Right lower quadrant: no guarding 06/27/2017 None Full Exam - ENT Abdomen abdominal exam Right lower quadrant: no rebound tenderness 06/27/2017 None Full Exam - ENT Abdomen abdominal exam Right upper quadrant: involuntary guarding 06/27/2017 None Full Exam - ENT Abdomen abdominal exam Right upper quadrant: no guarding 06/27/2017 None Full Exam - ENT Abdomen abdominal exam Left lower quadrant: no rebound tenderness 06/27/2017 None Full Exam - ENT Abdomen abdominal exam Left lower quadrant: no guarding 06/27/2017 None Full Exam - ENT Abdomen abdominal exam Left upper quadrant: no rebound tenderness 06/27/2017 None Full Exam - ENT Abdomen abdominal exam Left upper quadrant: no guarding 06/27/2017 None Full Exam - ENT Constitutional general appearance Overall: well nourished 05/08/2017 None Full Exam - ENT Constitutional general appearance Overall: well developed 05/08/2017 None Full Exam - ENT Constitutional general appearance Overall: in no acute distress 05/08/2017 None Full Exam - ENT Ears/Nose/Throat otoscopic exam Overall: external auditory canals normal 05/08/2017 None Full Exam - ENT Ears/Nose/Throat otoscopic exam Overall: tympanic membranes normal 05/08/2017 None Full Exam - ENT Ears/Nose/Throat oropharynx Overall: oral mucosa clear 05/08/2017 None Full Exam - ENT Face and Head palpation Left maxillary sinus: tender 05/08/2017 None Full Exam - ENT Face and Head palpation Right maxillary sinus: tender 05/08/2017 None Full Exam - ENT Respiratory auscultation Overall: breath sounds clear bilaterally 05/08/2017 None Full Exam - ENT Cardiovascular auscultation of heart Overall: regular rate 05/08/2017 None Full Exam - ENT Cardiovascular auscultation of heart Overall: normal heart sounds 05/08/2017 None Full Exam - ENT Cardiovascular auscultation of heart Overall: no murmurs 05/08/2017 None Full Exam - ENT Lymphatic palpation of lymph nodes Overall: anterior cervical chain benign 05/08/2017 None Full Exam - ENT Lymphatic palpation of lymph nodes Overall: posterior cervical chain benign 05/08/2017 None Full Exam - ENT Integument inspection of skin Overall: no rash, lesions 05/08/2017 None Full Exam - ENT Neurologic orientation Overall: oriented to person, place and time 05/08/2017 None Full Exam - ENT Constitutional general appearance Overall: well nourished 03/14/2017 None Full Exam - ENT Constitutional general appearance Overall: well developed 03/14/2017 None Full Exam - ENT Constitutional general appearance Overall: in no acute distress 03/14/2017 None Full Exam - ENT Ears/Nose/Throat otoscopic exam Overall: external auditory canals normal 03/14/2017 None Full Exam - ENT Ears/Nose/Throat otoscopic exam Overall: tympanic membranes normal 03/14/2017 None Full Exam - ENT Ears/Nose/Throat oropharynx Overall: oral mucosa clear 03/14/2017 None Full Exam - ENT Face and Head palpation Left maxillary sinus: tender 03/14/2017 None Full Exam - ENT Face and Head palpation Right maxillary sinus: tender 03/14/2017 None Full Exam - ENT Respiratory auscultation Overall: breath sounds clear bilaterally 03/14/2017 None Full Exam - ENT Cardiovascular auscultation of heart Overall: regular rate 03/14/2017 None Full Exam - ENT Cardiovascular auscultation of heart Overall: normal heart sounds 03/14/2017 None Full Exam - ENT Cardiovascular auscultation of heart Overall: no murmurs 03/14/2017 None Full Exam - ENT Lymphatic palpation of lymph nodes Overall: anterior cervical chain benign 03/14/2017 None Full Exam - ENT Lymphatic palpation of lymph nodes Overall: posterior cervical chain benign 03/14/2017 None Full Exam - ENT Integument inspection of skin Overall: no rash, lesions 03/14/2017 None Full Exam - ENT Neurologic orientation Overall: oriented to person, place and time 03/14/2017 None Full Exam - General 1994 Constitutional general appearance Overall: well developed 02/20/2017 None Full Exam - General 1994 Constitutional general appearance Overall: in no acute distress 02/20/2017 None Full Exam - General 1994 Constitutional general appearance Overall: well nourished 02/20/2017 None Full Exam - General 1994 Ears/Nose/Throat oral cavity/pharynx/larynx Overall: oral mucosa clear 02/20/2017 None Full Exam - General 1994 Respiratory auscultation Overall: breath sounds clear bilaterally 02/20/2017 None Full Exam - General 1994 Respiratory respiratory effort/rhythm Overall: no retractions 02/20/2017 None Full Exam - General 1994 Respiratory respiratory effort/rhythm Overall: normal rate 02/20/2017 None Full Exam - General 1994 Cardiovascular auscultation of heart Overall: regular rate 02/20/2017 None Full Exam - General 1994 Cardiovascular auscultation of heart Overall: normal heart sounds 02/20/2017 None Full Exam - General 1994 Abdomen abdominal exam Overall: normal bowel sounds 02/20/2017 None Full Exam - General 1994 Abdomen abdominal exam Upper quadrant: tender to palpation 02/20/2017 None Full Exam - General 1994 Abdomen abdominal exam Lower quadrant: tender to palpation 02/20/2017 None Full Exam - General 1994 Musculoskeletal gait and station Overall: normal gait 02/20/2017 None Full Exam - General 1994 Musculoskeletal gait and station Overall: normal station 02/20/2017 None Full Exam - General 1994 Neurologic gait Overall: no ataxia, no unsteadiness 02/20/2017 None Full Exam - General 1994 Neurologic cranial nerves Overall: crainial nerves 2 - 12 grossly intact 02/20/2017 None Full Exam - General 1994 Psychiatric orientation/consciousness Overall: oriented to person, place and time 02/20/2017 None Full Exam - General 1994 Psychiatric mood and affect Overall: normal mood and affect 02/20/2017 None Full Exam - General 1994 Psychiatric appearance Overall: well-groomed, good eye contact 02/20/2017 None Full Exam - General 1994 Eyes conjunctiva/eyelids Overall: conjunctiva clear 02/20/2017 None Full Exam - General 1994 Eyes conjunctiva/eyelids Overall: eyelids normal 02/20/2017 None Full Exam - General 1994 Ears/Nose/Throat lips/teeth/gingiva Overall: benign lips 02/20/2017 None Full Exam - General 1994 Constitutional general appearance Overall: well developed 02/06/2017 None Full Exam - General 1994 Constitutional general appearance Overall: in no acute distress 02/06/2017 None Full Exam - General 1994 Constitutional general appearance Overall: well nourished 02/06/2017 None Full Exam - General 1994 Eyes pupils and irises Overall: pupils equal, round, reactive to light and accomodation 02/06/2017 None Full Exam - General 1994 Ears/Nose/Throat oral cavity/pharynx/larynx Overall: oral mucosa clear 02/06/2017 None Full Exam - General 1994 Ears/Nose/Throat oral cavity/pharynx/larynx Overall: oropharyngeal mucosa clear 02/06/2017 None Full Exam - General 1994 Ears/Nose/Throat oral cavity/pharynx/larynx Overall: no masses 02/06/2017 None Full Exam - General 1994 Respiratory auscultation Overall: breath sounds clear bilaterally 02/06/2017 None Full Exam - General 1994 Respiratory respiratory effort/rhythm Overall: no retractions 02/06/2017 None Full Exam - General 1994 Respiratory respiratory effort/rhythm Overall: normal rate 02/06/2017 None Full Exam - General 1994 Cardiovascular auscultation of heart Overall: regular rate 02/06/2017 None Full Exam - General 1994 Cardiovascular auscultation of heart Overall: normal heart sounds 02/06/2017 None Full Exam - General 1994 Cardiovascular auscultation of heart Overall: no murmurs 02/06/2017 None Full Exam - General 1994 Abdomen abdominal exam Overall: normal bowel sounds 02/06/2017 None Full Exam - General 1994 Musculoskeletal gait and station Overall: normal gait 02/06/2017 None Full Exam - General 1994 Musculoskeletal gait and station Overall: normal station 02/06/2017 None Full Exam - General 1994 Neurologic gait Overall: no ataxia, no unsteadiness 02/06/2017 None Full Exam - General 1994 Neurologic cranial nerves Overall: crainial nerves 2 - 12 grossly intact 02/06/2017 None Full Exam - General 1994 Psychiatric orientation/consciousness Overall: oriented to person, place and time 02/06/2017 None Full Exam - General 1994 Psychiatric mood and affect Overall: normal mood and affect 02/06/2017 None Full Exam - General 1994 Psychiatric appearance Overall: well-groomed, good eye contact 02/06/2017 None Full Exam - General 1994 Abdomen abdominal exam Upper quadrant: tender to palpation 02/06/2017 None Full Exam - General 1994 Abdomen abdominal exam Lower quadrant: tender to palpation 02/06/2017 None Full Exam - General 1994 Constitutional general appearance Overall: well developed 12/05/2016 None Full Exam - General 1994 Constitutional general appearance Overall: in no acute distress 12/05/2016 None Full Exam - General 1994 Constitutional general appearance Overall: well nourished 12/05/2016 None Full Exam - General 1994 Respiratory auscultation Overall: breath sounds clear bilaterally 12/05/2016 None Full Exam - General 1994 Respiratory respiratory effort/rhythm Overall: no retractions 12/05/2016 None Full Exam - General 1994 Respiratory respiratory effort/rhythm Overall: normal rate 12/05/2016 None Full Exam - General 1994 Cardiovascular auscultation of heart Overall: regular rate 12/05/2016 None Full Exam - General 1994 Cardiovascular auscultation of heart Overall: normal heart sounds 12/05/2016 None Full Exam - General 1994 Cardiovascular auscultation of heart Overall: no murmurs 12/05/2016 None Full Exam - General 1994 Neurologic gait Overall: no ataxia, no unsteadiness 12/05/2016 None Full Exam - General 1994 Psychiatric orientation/consciousness Overall: oriented to person, place and time 12/05/2016 None Full Exam - General 1994 Psychiatric mood and affect Overall: normal mood and affect 12/05/2016 None Full Exam - General 1994 Psychiatric appearance Overall: well-groomed, good eye contact 12/05/2016 None Full Exam - General 1994 Integument inspection of skin Dermatitis: erythema 12/05/2016 on nose, cheek, forehead Full Exam - ENT Constitutional general appearance Overall: well nourished 11/28/2016 None Full Exam - ENT Constitutional general appearance Overall: well developed 11/28/2016 None Full Exam - ENT Constitutional general appearance Overall: in no acute distress 11/28/2016 None Full Exam - ENT Ears/Nose/Throat otoscopic exam Overall: external auditory canals normal 11/28/2016 None Full Exam - ENT Ears/Nose/Throat otoscopic exam Overall: tympanic membranes normal 11/28/2016 None Full Exam - ENT Ears/Nose/Throat oropharynx Overall: oral mucosa clear 11/28/2016 None Full Exam - ENT Face and Head palpation Left maxillary sinus: tender 11/28/2016 None Full Exam - ENT Face and Head palpation Right maxillary sinus: tender 11/28/2016 None Full Exam - ENT Respiratory auscultation Overall: breath sounds clear bilaterally 11/28/2016 None Full Exam - ENT Cardiovascular auscultation of heart Overall: regular rate 11/28/2016 None Full Exam - ENT Cardiovascular auscultation of heart Overall: normal heart sounds 11/28/2016 None Full Exam - ENT Cardiovascular auscultation of heart Overall: no murmurs 11/28/2016 None Full Exam - ENT Lymphatic palpation of lymph nodes Overall: anterior cervical chain benign 11/28/2016 None Full Exam - ENT Lymphatic palpation of lymph nodes Overall: posterior cervical chain benign 11/28/2016 None Full Exam - ENT Neurologic orientation Overall: oriented to person, place and time 11/28/2016 None Full Exam - ENT Integument inspection of skin Overall: no rash, lesions 11/28/2016 None Full Exam - General 1994 Constitutional general appearance Overall: well developed 11/07/2016 None Full Exam - General 1994 Constitutional general appearance Overall: in no acute distress 11/07/2016 None Full Exam - General 1994 Constitutional general appearance Overall: well nourished 11/07/2016 None Full Exam - General 1994 Eyes conjunctiva/eyelids Overall: conjunctiva clear 11/07/2016 None Full Exam - General 1994 Eyes conjunctiva/eyelids Overall: eyelids normal 11/07/2016 None Full Exam - General 1994 Ears/Nose/Throat otoscopic exam Overall: external auditory canals clear 11/07/2016 None Full Exam - General 1994 Ears/Nose/Throat otoscopic exam Overall: tympanic membranes clear 11/07/2016 None Full Exam - General 1994 Ears/Nose/Throat lips/teeth/gingiva Overall: benign lips 11/07/2016 None Full Exam - General 1994 Ears/Nose/Throat oral cavity/pharynx/larynx Overall: oral mucosa clear 11/07/2016 None Full Exam - General 1994 Respiratory auscultation Overall: breath sounds clear bilaterally 11/07/2016 None Full Exam - General 1994 Respiratory respiratory effort/rhythm Overall: no retractions 11/07/2016 None Full Exam - General 1994 Respiratory respiratory effort/rhythm Overall: normal rate 11/07/2016 None Full Exam - General 1994 Ears/Nose/Throat internal nose Sinus tenderness: left maxillary 11/07/2016 None Full Exam - General 1994 Ears/Nose/Throat internal nose Sinus tenderness: right maxillary 11/07/2016 None Full Exam - General 1994 Cardiovascular auscultation of heart Overall: regular rate 11/07/2016 None Full Exam - General 1994 Cardiovascular auscultation of heart Overall: normal heart sounds 11/07/2016 None Full Exam - General 1994 Lymphatic neck nodes Overall: posterior cervical chain benign 11/07/2016 None Full Exam - General 1994 Lymphatic neck nodes Overall: anterior cervical chain benign 11/07/2016 None Full Exam - General 1994 Neurologic cranial nerves Overall: crainial nerves 2 - 12 grossly intact 11/07/2016 None Full Exam - General 1994 Psychiatric orientation/consciousness Overall: oriented to person, place and time 11/07/2016 None Full Exam - General 1994 Psychiatric mood and affect Overall: normal mood and affect 11/07/2016 None Full Exam - General 1994 Psychiatric appearance Overall: well-groomed, good eye contact 11/07/2016 None Full Exam - ENT Constitutional general appearance Overall: well nourished 08/15/2016 None Full Exam - ENT Constitutional general appearance Overall: well developed 08/15/2016 None Full Exam - ENT Constitutional general appearance Overall: in no acute distress 08/15/2016 None Full Exam - ENT Ears/Nose/Throat otoscopic exam Overall: external auditory canals normal 08/15/2016 None Full Exam - ENT Ears/Nose/Throat otoscopic exam Left tympanic membrane: air-fluid level 08/15/2016 None Full Exam - ENT Ears/Nose/Throat otoscopic exam Right tympanic membrane: air-fluid level 08/15/2016 None Full Exam - ENT Ears/Nose/Throat nasal mucosa, septum, turbinates Drainage: clear 08/15/2016 None Full Exam - ENT Ears/Nose/Throat nasal mucosa, septum, turbinates Drainage: yellow 08/15/2016 None Full Exam - ENT Ears/Nose/Throat lips/teeth/gingiva Overall: benign lips 08/15/2016 None Full Exam - ENT Ears/Nose/Throat oropharynx Posterior Pharynx: clear post nasal drainage 08/15/2016 None Full Exam - ENT Face and Head palpation Left maxillary sinus: tender 08/15/2016 None Full Exam - ENT Face and Head palpation Right maxillary sinus: tender 08/15/2016 None Full Exam - ENT Respiratory inspection Overall: no retractions 08/15/2016 None Full Exam - ENT Respiratory inspection Overall: normal rate 08/15/2016 None Full Exam - ENT Respiratory auscultation Overall: breath sounds clear bilaterally 08/15/2016 None Full Exam - ENT Cardiovascular auscultation of heart Overall: regular rate 08/15/2016 None Full Exam - ENT Cardiovascular auscultation of heart Overall: normal heart sounds 08/15/2016 None Full Exam - ENT Lymphatic palpation of lymph nodes Overall: anterior cervical chain benign 08/15/2016 None Full Exam - ENT Lymphatic palpation of lymph nodes Overall: posterior cervical chain benign 08/15/2016 None Full Exam - ENT Neurologic mood and affect Overall: normal mood 08/15/2016 None Full Exam - ENT Neurologic mood and affect Overall: normal affect 08/15/2016 None Full Exam - ENT Neurologic orientation Overall: oriented to person, place and time 08/15/2016 None Full Exam - ENT Ears/Nose/Throat oropharynx Posterior Pharynx: erythema 08/15/2016 None Full Exam - ENT Face and Head palpation Left frontal sinus: tender 08/15/2016 None Full Exam - ENT Face and Head palpation Right frontal sinus: tender 08/15/2016 None Full Exam - ENT Constitutional general appearance Overall: well nourished 06/07/2016 None Full Exam - ENT Constitutional general appearance Overall: well developed 06/07/2016 None Full Exam - ENT Constitutional general appearance Overall: in no acute distress 06/07/2016 None Full Exam - ENT Ears/Nose/Throat otoscopic exam Overall: external auditory canals normal 06/07/2016 None Full Exam - ENT Ears/Nose/Throat otoscopic exam Overall: tympanic membranes normal 06/07/2016 None Full Exam - ENT Ears/Nose/Throat oropharynx Overall: oral mucosa clear 06/07/2016 None Full Exam - ENT Face and Head palpation Left maxillary sinus: tender 06/07/2016 None Full Exam - ENT Face and Head palpation Right maxillary sinus: tender 06/07/2016 None Full Exam - ENT Respiratory auscultation Overall: breath sounds clear bilaterally 06/07/2016 None Full Exam - ENT Cardiovascular auscultation of heart Overall: regular rate 06/07/2016 None Full Exam - ENT Cardiovascular auscultation of heart Overall: normal heart sounds 06/07/2016 None Full Exam - ENT Cardiovascular auscultation of heart Overall: no murmurs 06/07/2016 None Full Exam - ENT Lymphatic palpation of lymph nodes Overall: anterior cervical chain benign 06/07/2016 None Full Exam - ENT Lymphatic palpation of lymph nodes Overall: posterior cervical chain benign 06/07/2016 None Full Exam - ENT Neurologic orientation Overall: oriented to person, place and time 06/07/2016 None Full Exam - General 1994 Constitutional general appearance Overall: well developed 03/14/2016 None Full Exam - General 1994 Constitutional general appearance Overall: in no acute distress 03/14/2016 None Full Exam - General 1994 Constitutional general appearance Overall: well nourished 03/14/2016 None Full Exam - General 1994 Eyes pupils and irises Overall: pupils equal, round, reactive to light and accomodation 03/14/2016 None Full Exam - General 1994 Ears/Nose/Throat otoscopic exam Overall: external auditory canals clear 03/14/2016 None Full Exam - General 1994 Ears/Nose/Throat otoscopic exam Tympanic membrane: air-fluid level 03/14/2016 None Full Exam - General 1994 Ears/Nose/Throat oral cavity/pharynx/larynx Overall: oral mucosa clear 03/14/2016 None Full Exam - General 1994 Ears/Nose/Throat oral cavity/pharynx/larynx Overall: no masses 03/14/2016 None Full Exam - General 1994 Respiratory auscultation Overall: breath sounds clear bilaterally 03/14/2016 None Full Exam - General 1994 Respiratory respiratory effort/rhythm Overall: no retractions 03/14/2016 None Full Exam - General 1994 Respiratory respiratory effort/rhythm Overall: normal rate 03/14/2016 None Full Exam - General 1994 Cardiovascular auscultation of heart Overall: regular rate 03/14/2016 None Full Exam - General 1994 Cardiovascular auscultation of heart Overall: normal heart sounds 03/14/2016 None Full Exam - General 1994 Cardiovascular auscultation of heart Overall: no murmurs 03/14/2016 None Full Exam - General 1994 Abdomen abdominal exam Overall: no tenderness 03/14/2016 None Full Exam - General 1994 Abdomen abdominal exam Overall: normal bowel sounds 03/14/2016 None Full Exam - General 1994 Musculoskeletal gait and station Overall: normal gait 03/14/2016 None Full Exam - General 1994 Musculoskeletal gait and station Overall: normal station 03/14/2016 None Full Exam - General 1994 Neurologic gait Overall: no ataxia, no unsteadiness 03/14/2016 None Full Exam - General 1994 Neurologic cranial nerves Overall: crainial nerves 2 - 12 grossly intact 03/14/2016 None Full Exam - General 1994 Psychiatric orientation/consciousness Overall: oriented to person, place and time 03/14/2016 None Full Exam - General 1994 Psychiatric mood and affect Overall: normal mood and affect 03/14/2016 None Full Exam - General 1994 Psychiatric appearance Overall: well-groomed, good eye contact 03/14/2016 None Full Exam - ENT Constitutional general appearance Overall: well nourished 02/22/2016 None Full Exam - ENT Constitutional general appearance Overall: well developed 02/22/2016 None Full Exam - ENT Constitutional general appearance Overall: in no acute distress 02/22/2016 None Full Exam - ENT Neurologic orientation Overall: oriented to person, place and time 02/22/2016 None Full Exam - ENT Integument inspection of skin Location: left leg 02/22/2016 scabbed area, mild erythema surrounding Full Exam - ENT Respiratory inspection Overall: no retractions 02/22/2016 None Full Exam - ENT Respiratory inspection Overall: normal rate 02/22/2016 None Full Exam - ENT Musculoskeletal gait and station Overall: normal gait 02/22/2016 None Full Exam - ENT Musculoskeletal gait and station Overall: normal station 02/22/2016 None Full Exam - ENT Ears/Nose/Throat lips/teeth/gingiva Overall: benign lips 02/22/2016 None Full Exam - ENT Ears/Nose/Throat lips/teeth/gingiva Overall: normal dentition 02/22/2016 None Full Exam - ENT Musculoskeletal spine, ribs and pelvis Overall: good posture 02/22/2016 None Full Exam - ENT Abdomen abdominal exam Contour: rounded 02/22/2016 None Full Exam - ENT Neurologic cranial nerves/coordination Overall: cranial nerves 2-12 grossly intact 02/22/2016 None Full Exam - ENT Neurologic mood and affect Overall: normal mood 02/22/2016 None Full Exam - ENT Neurologic mood and affect Overall: normal affect 02/22/2016 None Full Exam - ENT Musculoskeletal head and neck Overall: head atraumatic 02/22/2016 None Full Exam - ENT Constitutional general appearance Overall: well nourished 12/07/2015 None Full Exam - ENT Constitutional general appearance Overall: well developed 12/07/2015 None Full Exam - ENT Constitutional general appearance Overall: in no acute distress 12/07/2015 None Full Exam - ENT Ears/Nose/Throat otoscopic exam Overall: external auditory canals normal 12/07/2015 None Full Exam - ENT Ears/Nose/Throat otoscopic exam Overall: tympanic membranes normal 12/07/2015 None Full Exam - ENT Ears/Nose/Throat oropharynx Overall: oral mucosa clear 12/07/2015 None Full Exam - ENT Face and Head palpation Left maxillary sinus: tender 12/07/2015 None Full Exam - ENT Face and Head palpation Right maxillary sinus: tender 12/07/2015 None Full Exam - ENT Respiratory auscultation Overall: breath sounds clear bilaterally 12/07/2015 None Full Exam - ENT Cardiovascular auscultation of heart Overall: regular rate 12/07/2015 None Full Exam - ENT Cardiovascular auscultation of heart Overall: normal heart sounds 12/07/2015 None Full Exam - ENT Cardiovascular auscultation of heart Overall: no murmurs 12/07/2015 None Full Exam - ENT Lymphatic palpation of lymph nodes Overall: anterior cervical chain benign 12/07/2015 None Full Exam - ENT Lymphatic palpation of lymph nodes Overall: posterior cervical chain benign 12/07/2015 None Full Exam - ENT Neurologic orientation Overall: oriented to person, place and time 12/07/2015 None Full Exam - General 1994 Constitutional general appearance Overall: well developed 11/24/2015 None Full Exam - General 1994 Constitutional general appearance Overall: in no acute distress 11/24/2015 None Full Exam - General 1994 Constitutional general appearance Overall: well nourished 11/24/2015 None Full Exam - General 1994 Eyes pupils and irises Overall: pupils equal, round, reactive to light and accomodation 11/24/2015 None Full Exam - General 1994 Respiratory auscultation Overall: breath sounds clear bilaterally 11/24/2015 None Full Exam - General 1994 Respiratory respiratory effort/rhythm Overall: no retractions 11/24/2015 None Full Exam - General 1994 Respiratory respiratory effort/rhythm Overall: normal rate 11/24/2015 None Full Exam - General 1994 Cardiovascular auscultation of heart Overall: regular rate 11/24/2015 None Full Exam - General 1994 Cardiovascular auscultation of heart Overall: normal heart sounds 11/24/2015 None Full Exam - General 1994 Cardiovascular auscultation of heart Overall: no murmurs 11/24/2015 None Full Exam - General 1994 Musculoskeletal gait and station Overall: normal gait 11/24/2015 None Full Exam - General 1994 Musculoskeletal gait and station Overall: normal station 11/24/2015 None Full Exam - General 1994 Neurologic gait Overall: no ataxia, no unsteadiness 11/24/2015 None Full Exam - General 1994 Neurologic cranial nerves Overall: crainial nerves 2 - 12 grossly intact 11/24/2015 None Full Exam - General 1994 Psychiatric orientation/consciousness Overall: oriented to person, place and time 11/24/2015 None Full Exam - General 1994 Psychiatric mood and affect Overall: normal mood and affect 11/24/2015 None Full Exam - General 1994 Psychiatric appearance Overall: well-groomed, good eye contact 11/24/2015 None Full Exam - General 1994 Ears/Nose/Throat otoscopic exam Tympanic membrane: air-fluid level 11/24/2015 None Full Exam - General 1994 Ears/Nose/Throat otoscopic exam Overall: external auditory canals clear 11/24/2015 None Full Exam - General 1994 Ears/Nose/Throat oral cavity/pharynx/larynx Overall: oral mucosa clear 11/24/2015 None Full Exam - General 1994 Ears/Nose/Throat oral cavity/pharynx/larynx Overall: no masses 11/24/2015 None Full Exam - General 1994 Abdomen abdominal exam Overall: no tenderness 11/24/2015 None Full Exam - General 1994 Abdomen abdominal exam Overall: normal bowel sounds 11/24/2015 None Full Exam - General 1994 Integument inspection of skin Dermatitis: dryness/flaking 11/24/2015 None Full Exam - General 1994 Constitutional general appearance Overall: well developed 08/27/2015 None Full Exam - General 1994 Constitutional general appearance Overall: in no acute distress 08/27/2015 None Full Exam - General 1994 Constitutional general appearance Overall: well nourished 08/27/2015 None Full Exam - General 1994 Eyes pupils and irises Overall: pupils equal, round, reactive to light and accomodation 08/27/2015 None Full Exam - General 1994 Respiratory auscultation Overall: breath sounds clear bilaterally 08/27/2015 None Full Exam - General 1994 Respiratory respiratory effort/rhythm Overall: no retractions 08/27/2015 None Full Exam - General 1994 Respiratory respiratory effort/rhythm Overall: normal rate 08/27/2015 None Full Exam - General 1994 Cardiovascular auscultation of heart Overall: regular rate 08/27/2015 None Full Exam - General 1994 Cardiovascular auscultation of heart Overall: normal heart sounds 08/27/2015 None Full Exam - General 1994 Musculoskeletal gait and station Overall: normal gait 08/27/2015 None Full Exam - General 1994 Musculoskeletal gait and station Overall: normal station 08/27/2015 None Full Exam - General 1994 Neurologic gait Overall: no ataxia, no unsteadiness 08/27/2015 None Full Exam - General 1994 Neurologic cranial nerves Overall: crainial nerves 2 - 12 grossly intact 08/27/2015 None Full Exam - General 1994 Psychiatric orientation/consciousness Overall: oriented to person, place and time 08/27/2015 None Full Exam - General 1994 Psychiatric appearance Overall: well-groomed, good eye contact 08/27/2015 None Full Exam - ENT Constitutional general appearance Overall: well nourished 08/10/2015 None Full Exam - ENT Constitutional general appearance Overall: well developed 08/10/2015 None Full Exam - ENT Constitutional general appearance Overall: in no acute distress 08/10/2015 None Full Exam - ENT Ears/Nose/Throat otoscopic exam Right tympanic membrane: air-fluid level 08/10/2015 None Full Exam - ENT Ears/Nose/Throat pharyngeal wall and piriform sinuses Overall: normal pharyngeal jauregui 08/10/2015 None Full Exam - ENT Face and Head inspection of face/head Overall: no scars, lesions, masses 08/10/2015 None Full Exam - ENT Respiratory auscultation Overall: breath sounds clear bilaterally 08/10/2015 None Full Exam - ENT Cardiovascular auscultation of heart Overall: regular rate 08/10/2015 None Full Exam - ENT Cardiovascular auscultation of heart Overall: normal heart sounds 08/10/2015 None Full Exam - ENT Abdomen abdominal exam Overall: no tenderness 08/10/2015 None Full Exam - ENT Abdomen abdominal exam Overall: normal bowel sounds 08/10/2015 None Full Exam - ENT Lymphatic palpation of lymph nodes Overall: anterior cervical chain benign 08/10/2015 None Full Exam - ENT Lymphatic palpation of lymph nodes Overall: posterior cervical chain benign 08/10/2015 None Full Exam - ENT Musculoskeletal head and neck Overall: head atraumatic 08/10/2015 None Full Exam - ENT Musculoskeletal head and neck Overall: cervical spine benign 08/10/2015 None Full Exam - ENT Integument inspection of skin Overall: no rash, lesions 08/10/2015 None Full Exam - ENT Neurologic mood and affect Overall: normal mood 08/10/2015 None Full Exam - ENT Neurologic mood and affect Overall: normal affect 08/10/2015 None Full Exam - ENT Ears/Nose/Throat otoscopic exam Overall: external auditory canals normal 08/10/2015 None Full Exam - ENT Ears/Nose/Throat otoscopic exam Left tympanic membrane: air-fluid level 08/10/2015 None Full Exam - ENT Ears/Nose/Throat oropharynx Posterior Pharynx: erythema 08/10/2015 None Full Exam - ENT Face and Head palpation Right maxillary sinus: tender 08/10/2015 None Full Exam - ENT Face and Head palpation Left maxillary sinus: tender 08/10/2015 None Full Exam - ENT Neurologic orientation Overall: oriented to person, place and time 08/10/2015 None Full Exam - ENT Ears/Nose/Throat oropharynx Oral mucosa: thrush 08/10/2015 None Full Exam - General 1994 Constitutional general appearance Overall: well developed 07/28/2015 None Full Exam - General 1994 Constitutional general appearance Overall: in no acute distress 07/28/2015 None Full Exam - General 1994 Constitutional general appearance Overall: well nourished 07/28/2015 None Full Exam - General 1994 Eyes pupils and irises Overall: pupils equal, round, reactive to light and accomodation 07/28/2015 None Full Exam - General 1994 Respiratory auscultation Overall: breath sounds clear bilaterally 07/28/2015 None Full Exam - General 1994 Respiratory respiratory effort/rhythm Overall: no retractions 07/28/2015 None Full Exam - General 1994 Respiratory respiratory effort/rhythm Overall: normal rate 07/28/2015 None Full Exam - General 1994 Cardiovascular auscultation of heart Overall: regular rate 07/28/2015 None Full Exam - General 1994 Cardiovascular auscultation of heart Overall: normal heart sounds 07/28/2015 None Full Exam - General 1994 Cardiovascular auscultation of heart Overall: no murmurs 07/28/2015 None Full Exam - General 1994 Musculoskeletal gait and station Overall: normal gait 07/28/2015 None Full Exam - General 1994 Musculoskeletal gait and station Overall: normal station 07/28/2015 None Full Exam - General 1994 Neurologic gait Overall: no ataxia, no unsteadiness 07/28/2015 None Full Exam - General 1994 Neurologic cranial nerves Overall: crainial nerves 2 - 12 grossly intact 07/28/2015 None Full Exam - General 1994 Psychiatric orientation/consciousness Overall: oriented to person, place and time 07/28/2015 None Full Exam - General 1994 Psychiatric appearance Overall: well-groomed, good eye contact 07/28/2015 None Full Exam - General 1994 Integument inspection of skin Dermatitis: erythema 07/28/2015 None Full Exam - General 1994 Integument inspection of skin Dermatitis: pustule 07/28/2015 None Full Exam - General 1994 Integument inspection of skin Location: right hand 07/28/2015 None Full Exam - General 1994 Integument inspection of skin Consistency: indurated 07/28/2015 pt has an area of redness surrounding a scab on her right hand between the thumb and pointer finger. Scab removed, pus extruded, and a small splinter was removed from the site. Full Exam - Dermatology Constitutional general appearance Overall: well nourished 06/11/2015 None Full Exam - Dermatology Constitutional general appearance Overall: well developed 06/11/2015 None Full Exam - Dermatology Constitutional general appearance Overall: in no acute distress 06/11/2015 None Full Exam - Dermatology Constitutional general appearance Overall: of normal body habitus 06/11/2015 None Full Exam - Dermatology Psychiatric orientation Overall: oriented to person, place and time 06/11/2015 None Full Exam - Dermatology Integument insp & palp - genitalia/groin/buttocks Location: on the left groin 06/11/2015 None Full Exam - Dermatology Integument insp & palp - genitalia/groin/buttocks Location: on the right groin 06/11/2015 None Full Exam - Dermatology Integument insp & palp - genitalia/groin/buttocks Color: erythematous 06/11/2015 None Full Exam - Dermatology Integument insp & palp - genitalia/groin/buttocks Lesion: patch 06/11/2015 None Full Exam - Dermatology Integument insp & palp - abdomen Lesion: patch 06/11/2015 None Full Exam - Dermatology Integument insp & palp - abdomen Location: on the lower abdomen 06/11/2015 None Full Exam - Dermatology Integument insp & palp - abdomen Color: erythematous 06/11/2015 None Full Exam - Dermatology Eyes conjunctiva/eyelids Overall: clear conjunctiva bilaterally 06/11/2015 None Full Exam - Dermatology Respiratory respiratory effort/rhythm Overall: no retractions 06/11/2015 None Full Exam - Dermatology Respiratory respiratory effort/rhythm Overall: normal rate 06/11/2015 None Full Exam - Dermatology Respiratory auscultation Overall: breath sounds clear bilaterally 06/11/2015 None Full Exam - General 1994 Constitutional general appearance Overall: well developed 03/19/2015 None Full Exam - General 1994 Constitutional general appearance Overall: in no acute distress 03/19/2015 None Full Exam - General 1994 Constitutional general appearance Overall: well nourished 03/19/2015 None Full Exam - General 1994 Eyes pupils and irises Overall: pupils equal, round, reactive to light and accomodation 03/19/2015 None Full Exam - General 1994 Respiratory auscultation Overall: breath sounds clear bilaterally 03/19/2015 None Full Exam - General 1994 Respiratory respiratory effort/rhythm Overall: no retractions 03/19/2015 None Full Exam - General 1994 Respiratory respiratory effort/rhythm Overall: normal rate 03/19/2015 None Full Exam - General 1994 Cardiovascular auscultation of heart Overall: regular rate 03/19/2015 None Full Exam - General 1994 Cardiovascular auscultation of heart Overall: normal heart sounds 03/19/2015 None Full Exam - General 1994 Cardiovascular auscultation of heart Overall: no murmurs 03/19/2015 None Full Exam - General 1994 Musculoskeletal gait and station Overall: normal gait 03/19/2015 None Full Exam - General 1994 Musculoskeletal gait and station Overall: normal station 03/19/2015 None Full Exam - General 1994 Neurologic gait Overall: no ataxia, no unsteadiness 03/19/2015 None Full Exam - General 1994 Neurologic cranial nerves Overall: crainial nerves 2 - 12 grossly intact 03/19/2015 None Full Exam - General 1994 Psychiatric orientation/consciousness Overall: oriented to person, place and time 03/19/2015 None Full Exam - General 1994 Psychiatric appearance Overall: well-groomed, good eye contact 03/19/2015 None Full Exam - ENT Neurologic mood and affect Overall: normal mood 01/07/2015 None Full Exam - ENT Neurologic mood and affect Overall: normal affect 01/07/2015 None Full Exam - ENT Integument inspection of skin Overall: no rash, lesions 01/07/2015 None Full Exam - ENT Musculoskeletal head and neck Overall: head atraumatic 01/07/2015 None Full Exam - ENT Musculoskeletal head and neck Overall: cervical spine benign 01/07/2015 None Full Exam - ENT Lymphatic palpation of lymph nodes Overall: anterior cervical chain benign 01/07/2015 None Full Exam - ENT Lymphatic palpation of lymph nodes Overall: posterior cervical chain benign 01/07/2015 None Full Exam - ENT Abdomen abdominal exam Overall: no tenderness 01/07/2015 None Full Exam - ENT Abdomen abdominal exam Overall: normal bowel sounds 01/07/2015 None Full Exam - ENT Cardiovascular auscultation of heart Overall: regular rate 01/07/2015 None Full Exam - ENT Cardiovascular auscultation of heart Overall: normal heart sounds 01/07/2015 None Full Exam - ENT Respiratory auscultation Overall: breath sounds clear bilaterally 01/07/2015 None Full Exam - ENT Face and Head palpation Overall: no sinus tenderness 01/07/2015 None Full Exam - ENT Ears/Nose/Throat otoscopic exam Right tympanic membrane: air-fluid level 01/07/2015 None Full Exam - ENT Eyes ocular motility Overall: extraocular movement intact 01/07/2015 bilateral mild conjunctivitis Full Exam - ENT Constitutional general appearance Overall: well nourished 01/07/2015 None Full Exam - ENT Constitutional general appearance Overall: well developed 01/07/2015 None Full Exam - ENT Constitutional general appearance Overall: in no acute distress 01/07/2015 None Full Exam - ENT Ears/Nose/Throat otoscopic exam Right external auditory canal: erythematous 01/07/2015 None Full Exam - ENT Ears/Nose/Throat otoscopic exam Right external auditory canal: tender 01/07/2015 None Full Exam - ENT Ears/Nose/Throat otoscopic exam Left external auditory canal: a normal exam 01/07/2015 None Full Exam - ENT Face and Head inspection of face/head Overall: no scars, lesions, masses 01/07/2015 None Full Exam - ENT Ears/Nose/Throat oropharynx Overall: oral mucosa clear 01/07/2015 None Full Exam - ENT Ears/Nose/Throat pharyngeal wall and piriform sinuses Overall: normal pharyngeal jauregui 01/07/2015 None Full Exam - General 1994 Psychiatric orientation/consciousness Overall: oriented to person, place and time 09/23/2014 None Full Exam - General 1994 Lymphatic neck nodes Overall: posterior cervical chain benign 09/23/2014 None Full Exam - General 1994 Lymphatic neck nodes Overall: anterior cervical chain benign 09/23/2014 None Full Exam - General 1994 Cardiovascular auscultation of heart Overall: regular rate 09/23/2014 None Full Exam - General 1994 Cardiovascular auscultation of heart Overall: normal heart sounds 09/23/2014 None Full Exam - General 1994 Respiratory auscultation Overall: breath sounds clear bilaterally 09/23/2014 None Full Exam - General 1994 Respiratory respiratory effort/rhythm Overall: normal rate 09/23/2014 None Full Exam - General 1994 Respiratory respiratory effort/rhythm Overall: no retractions 09/23/2014 None Full Exam - General 1994 Ears/Nose/Throat otoscopic exam Overall: external auditory canals clear 09/23/2014 None Full Exam - General 1994 Ears/Nose/Throat otoscopic exam Overall: tympanic membranes clear 09/23/2014 None Full Exam - General 1994 Ears/Nose/Throat oral cavity/pharynx/larynx Overall: oral mucosa clear 09/23/2014 None Full Exam - General 1994 Eyes conjunctiva/eyelids Conjunctiva: erythema 09/23/2014 None Full Exam - General 1994 Eyes pupils and irises Overall: pupils equal, round, reactive to light and accomodation 09/23/2014 None Full Exam - General 1994 Constitutional general appearance Overall: well developed 09/23/2014 None Full Exam - General 1994 Constitutional general appearance Overall: in no acute distress 09/23/2014 None Full Exam - General 1994 Constitutional general appearance Overall: well nourished 09/23/2014 None Full Exam - Dermatology Constitutional general appearance Overall: well nourished 08/05/2014 None Full Exam - Dermatology Constitutional general appearance Overall: well developed 08/05/2014 None Full Exam - Dermatology Constitutional general appearance Overall: in no acute distress 08/05/2014 None Full Exam - Dermatology Constitutional general appearance Overall: of normal body habitus 08/05/2014 None Full Exam - Dermatology Constitutional general appearance Overall: well groomed 08/05/2014 None Full Exam - Dermatology Psychiatric orientation Overall: oriented to person, place and time 08/05/2014 None Full Exam - Dermatology Integument insp & palp - right lower extremity Location: on the driver 08/05/2014 superficial skin tear 0.3cm Full Exam - Dermatology Integument insp & palp - left lower extremity Location: on the driver 08/05/2014 lateral lower leg-0.6cm superficial skin tear Full Exam - ENT Constitutional general appearance Overall: well nourished 06/23/2014 None Full Exam - ENT Constitutional general appearance Overall: well developed 06/23/2014 None Full Exam - ENT Constitutional general appearance Overall: in no acute distress 06/23/2014 None Full Exam - ENT Ears/Nose/Throat otoscopic exam Overall: external auditory canals normal 06/23/2014 None Full Exam - ENT Ears/Nose/Throat otoscopic exam Overall: tympanic membranes normal 06/23/2014 None Full Exam - ENT Ears/Nose/Throat oropharynx Overall: oral mucosa clear 06/23/2014 None Full Exam - ENT Face and Head palpation Left maxillary sinus: tender 06/23/2014 None Full Exam - ENT Face and Head palpation Right maxillary sinus: tender 06/23/2014 None Full Exam - ENT Respiratory auscultation Overall: breath sounds clear bilaterally 06/23/2014 None Full Exam - ENT Cardiovascular auscultation of heart Overall: regular rate 06/23/2014 None Full Exam - ENT Cardiovascular auscultation of heart Overall: normal heart sounds 06/23/2014 None Full Exam - ENT Cardiovascular auscultation of heart Overall: no murmurs 06/23/2014 None Full Exam - ENT Lymphatic palpation of lymph nodes Overall: anterior cervical chain benign 06/23/2014 None Full Exam - ENT Lymphatic palpation of lymph nodes Overall: posterior cervical chain benign 06/23/2014 None Full Exam - ENT Neurologic orientation Overall: oriented to person, place and time 06/23/2014 None Full Exam - General 1994 Constitutional general appearance Overall: well developed 06/05/2014 None Full Exam - General 1994 Constitutional general appearance Overall: in no acute distress 06/05/2014 None Full Exam - General 1994 Constitutional general appearance Overall: well nourished 06/05/2014 None Full Exam - General 1994 Psychiatric orientation/consciousness Overall: oriented to person, place and time 06/05/2014 None Full Exam - General 1994 Neurologic cranial nerves Overall: crainial nerves 2 - 12 grossly intact 06/05/2014 None Full Exam - General 1994 Musculoskeletal head and neck Cervical Spine: tender 06/05/2014 tender left and right cervical muscles Full Exam - General 1994 Musculoskeletal spine, ribs and pelvis Overall: spine benign 06/05/2014 None Full Exam - General 1994 Constitutional general appearance Overall: well developed 04/03/2014 None Full Exam - General 1994 Constitutional general appearance Overall: in no acute distress 04/03/2014 None Full Exam - General 1994 Constitutional general appearance Overall: well nourished 04/03/2014 None Full Exam - General 1994 Eyes pupils and irises Overall: pupils equal, round, reactive to light and accomodation 04/03/2014 None Full Exam - General 1994 Respiratory auscultation Overall: breath sounds clear bilaterally 04/03/2014 None Full Exam - General 1994 Respiratory respiratory effort/rhythm Overall: no retractions 04/03/2014 None Full Exam - General 1994 Respiratory respiratory effort/rhythm Overall: normal rate 04/03/2014 None Full Exam - General 1994 Cardiovascular auscultation of heart Overall: regular rate 04/03/2014 None Full Exam - General 1994 Cardiovascular auscultation of heart Overall: normal heart sounds 04/03/2014 None Full Exam - General 1994 Cardiovascular auscultation of heart Overall: no murmurs 04/03/2014 None Full Exam - General 1994 Musculoskeletal gait and station Overall: normal gait 04/03/2014 None Full Exam - General 1994 Musculoskeletal gait and station Overall: normal station 04/03/2014 None Full Exam - General 1994 Neurologic gait Overall: no ataxia, no unsteadiness 04/03/2014 None Full Exam - General 1994 Neurologic cranial nerves Overall: crainial nerves 2 - 12 grossly intact 04/03/2014 None Full Exam - General 1994 Psychiatric orientation/consciousness Overall: oriented to person, place and time 04/03/2014 None Full Exam - General 1994 Psychiatric mood and affect Overall: normal mood and affect 04/03/2014 None Full Exam - General 1994 Psychiatric appearance Overall: well-groomed, good eye contact 04/03/2014 None Full Exam - General 1994 Integument inspection of skin Location: right leg 04/03/2014 scabbed abrasion right anterior lower leg-slight redness surrounding the wound Full Exam - Dermatology Constitutional general appearance Overall: well nourished 03/07/2014 None Full Exam - Dermatology Constitutional general appearance Overall: well developed 03/07/2014 None Full Exam - Dermatology Constitutional general appearance Overall: in no acute distress 03/07/2014 None Full Exam - Dermatology Constitutional general appearance Overall: of normal body habitus 03/07/2014 None Full Exam - Dermatology Constitutional general appearance Overall: well groomed 03/07/2014 None Full Exam - Dermatology Psychiatric orientation Overall: oriented to person, place and time 03/07/2014 None Full Exam - Dermatology Integument insp & palp - genitalia/groin/buttocks Lesion: patch 03/07/2014 None Full Exam - Dermatology Integument insp & palp - genitalia/groin/buttocks Location: on the right groin 03/07/2014 None Full Exam - Dermatology Integument insp & palp - genitalia/groin/buttocks Location: on the left groin 03/07/2014 None Full Exam - Dermatology Integument insp & palp - chest/axillae Lesion: patch 03/07/2014 None Full Exam - Dermatology Integument insp & palp - chest/axillae Location: on both breasts 03/07/2014 None Full Exam - Dermatology Integument insp & palp - chest/axillae Color: erythematous 03/07/2014 None Full Exam - Dermatology Integument insp & palp - genitalia/groin/buttocks Color: erythematous 03/07/2014 None Full Exam - General 1994 Constitutional general appearance Overall: well developed 11/21/2013 None Full Exam - General 1994 Constitutional general appearance Overall: in no acute distress 11/21/2013 None Full Exam - General 1994 Constitutional general appearance Overall: well nourished 11/21/2013 None Full Exam - General 1994 Eyes pupils and irises Overall: pupils equal, round, reactive to light and accomodation 11/21/2013 None Full Exam - General 1994 Respiratory auscultation Overall: breath sounds clear bilaterally 11/21/2013 None Full Exam - General 1994 Respiratory respiratory effort/rhythm Overall: no retractions 11/21/2013 None Full Exam - General 1994 Respiratory respiratory effort/rhythm Overall: normal rate 11/21/2013 None Full Exam - General 1994 Cardiovascular auscultation of heart Overall: regular rate 11/21/2013 None Full Exam - General 1994 Cardiovascular auscultation of heart Overall: normal heart sounds 11/21/2013 None Full Exam - General 1994 Cardiovascular auscultation of heart Overall: no murmurs 11/21/2013 None Full Exam - General 1994 Musculoskeletal gait and station Overall: normal gait 11/21/2013 None Full Exam - General 1994 Musculoskeletal gait and station Overall: normal station 11/21/2013 None Full Exam - General 1994 Neurologic gait Overall: no ataxia, no unsteadiness 11/21/2013 None Full Exam - General 1994 Neurologic cranial nerves Overall: crainial nerves 2 - 12 grossly intact 11/21/2013 None Full Exam - General 1994 Psychiatric orientation/consciousness Overall: oriented to person, place and time 11/21/2013 None Full Exam - General 1994 Psychiatric mood and affect Overall: normal mood and affect 11/21/2013 None Full Exam - General 1994 Psychiatric appearance Overall: well-groomed, good eye contact 11/21/2013 None Full Exam - General 1994 Psychiatric orientation/consciousness Overall: oriented to person, place and time 09/24/2013 None Full Exam - General 1994 Constitutional general appearance Overall: well developed 09/24/2013 None Full Exam - General 1994 Constitutional general appearance Overall: in no acute distress 09/24/2013 None Full Exam - General 1995 Constitutional general appearance Overall: well nourished 09/24/2013 None Full Exam - General 1994 Eyes pupils and irises Overall: pupils equal, round, reactive to light and accomodation 09/24/2013 None Full Exam - General 1994 Respiratory auscultation Overall: breath sounds clear bilaterally 09/24/2013 None Full Exam - General 1994 Respiratory respiratory effort/rhythm Overall: no retractions 09/24/2013 None Full Exam - General 1994 Respiratory respiratory effort/rhythm Overall: normal rate 09/24/2013 None Full Exam - General 1994 Cardiovascular auscultation of heart Overall: regular rate 09/24/2013 None Full Exam - General 1994 Cardiovascular auscultation of heart Overall: normal heart sounds 09/24/2013 None Full Exam - General 1994 Cardiovascular auscultation of heart Overall: no murmurs 09/24/2013 None Full Exam - General 1994 Abdomen abdominal exam Overall: no tenderness 09/24/2013 None Full Exam - General 1994 Abdomen abdominal exam Overall: normal bowel sounds 09/24/2013 None Full Exam - General 1994 Musculoskeletal gait and station Overall: normal gait 09/24/2013 None Full Exam - General 1994 Musculoskeletal gait and station Overall: normal station 09/24/2013 None Full Exam - General 1994 Neurologic gait Overall: no ataxia, no unsteadiness 09/24/2013 None Full Exam - General 1994 Neurologic cranial nerves Overall: crainial nerves 2 - 12 grossly intact 09/24/2013 None Full Exam - General 1994 Psychiatric mood and affect Overall: normal mood and affect 09/24/2013 None Full Exam - General 1994 Psychiatric appearance Overall: well-groomed, good eye contact 09/24/2013 None Full Exam - General 1994 Musculoskeletal digits and nails Nails: paronychia 09/24/2013 right middle finger Full Exam - General 1994 Constitutional general appearance Overall: well developed 09/19/2013 None Full Exam - General 1994 Constitutional general appearance Overall: in no acute distress 09/19/2013 None Full Exam - General 1994 Constitutional general appearance Overall: well nourished 09/19/2013 None Full Exam - General 1994 Eyes pupils and irises Overall: pupils equal, round, reactive to light and accomodation 09/19/2013 None Full Exam - General 1994 Respiratory auscultation Overall: breath sounds clear bilaterally 09/19/2013 None Full Exam - General 1994 Respiratory respiratory effort/rhythm Overall: no retractions 09/19/2013 None Full Exam - General 1994 Respiratory respiratory effort/rhythm Overall: normal rate 09/19/2013 None Full Exam - General 1994 Cardiovascular auscultation of heart Overall: regular rate 09/19/2013 None Full Exam - General 1994 Cardiovascular auscultation of heart Overall: normal heart sounds 09/19/2013 None Full Exam - General 1994 Cardiovascular auscultation of heart Overall: no murmurs 09/19/2013 None Full Exam - General 1994 Abdomen abdominal exam Overall: no tenderness 09/19/2013 None Full Exam - General 1994 Abdomen abdominal exam Overall: normal bowel sounds 09/19/2013 None Full Exam - General 1994 Musculoskeletal digits and nails Nails: paronychia 09/19/2013 right middle finger Full Exam - General 1994 Musculoskeletal gait and station Overall: normal gait 09/19/2013 None Full Exam - General 1994 Musculoskeletal gait and station Overall: normal station 09/19/2013 None Full Exam - General 1994 Neurologic gait Overall: no ataxia, no unsteadiness 09/19/2013 None Full Exam - General 1994 Neurologic cranial nerves Overall: crainial nerves 2 - 12 grossly intact 09/19/2013 None Full Exam - General 1994 Psychiatric orientation/consciousness Overall: oriented to person, place and time 09/19/2013 None Full Exam - General 1994 Psychiatric mood and affect Overall: normal mood and affect 09/19/2013 None Full Exam - General 1994 Psychiatric appearance Overall: well-groomed, good eye contact 09/19/2013 None Full Exam - General 1994 Psychiatric orientation/consciousness Overall: oriented to person, place and time 08/05/2013 None Full Exam - General 1994 Cardiovascular auscultation of heart Overall: regular rate 08/05/2013 None Full Exam - General 1994 Cardiovascular auscultation of heart Overall: normal heart sounds 08/05/2013 None Full Exam - General 1994 Respiratory auscultation Overall: breath sounds clear bilaterally 08/05/2013 None Full Exam - General 1994 Respiratory respiratory effort/rhythm Overall: normal rate 08/05/2013 None Full Exam - General 1994 Respiratory respiratory effort/rhythm Overall: no retractions 08/05/2013 None Full Exam - General 1994 Ears/Nose/Throat oral cavity/pharynx/larynx Overall: oral mucosa clear 08/05/2013 None Full Exam - General 1994 Ears/Nose/Throat otoscopic exam Overall: tympanic membranes clear 08/05/2013 None Full Exam - General 1994 Ears/Nose/Throat otoscopic exam Overall: external auditory canals clear 08/05/2013 None Full Exam - General 1994 Eyes conjunctiva/eyelids Conjunctiva: erythema 08/05/2013 None Full Exam - General 1994 Constitutional general appearance Overall: well developed 08/05/2013 None Full Exam - General 1994 Constitutional general appearance Overall: well nourished 08/05/2013 None Full Exam - General 1994 Constitutional general appearance Overall: in no acute distress 08/05/2013 None Full Exam - ENT Constitutional general appearance Overall: well nourished 07/10/2013 None Full Exam - ENT Constitutional general appearance Overall: well developed 07/10/2013 None Full Exam - ENT Constitutional general appearance Overall: in no acute distress 07/10/2013 None Full Exam - ENT Ears/Nose/Throat otoscopic exam Left tympanic membrane: air-fluid level 07/10/2013 None Full Exam - ENT Ears/Nose/Throat otoscopic exam Right tympanic membrane: air-fluid level 07/10/2013 None Full Exam - ENT Ears/Nose/Throat nasal mucosa, septum, turbinates Left nasal cavity: erythema 07/10/2013 None Full Exam - ENT Ears/Nose/Throat nasal mucosa, septum, turbinates Right nasal cavity: erythema 07/10/2013 None Full Exam - ENT Ears/Nose/Throat oropharynx Overall: oral mucosa clear 07/10/2013 None Full Exam - ENT Face and Head palpation Left maxillary sinus: tender 07/10/2013 None Full Exam - ENT Face and Head palpation Right maxillary sinus: tender 07/10/2013 None Full Exam - ENT Face and Head palpation Left frontal sinus: tender 07/10/2013 None Full Exam - ENT Face and Head palpation Right frontal sinus: tender 07/10/2013 None Full Exam - ENT Respiratory auscultation Overall: breath sounds clear bilaterally 07/10/2013 None Full Exam - ENT Cardiovascular auscultation of heart Overall: normal heart sounds 07/10/2013 None Full Exam - ENT Lymphatic palpation of lymph nodes Overall: shotty lymphadenopathy 07/10/2013 None Full Exam - ENT Ears/Nose/Throat otoscopic exam Right tympanic membrane: bulging 07/10/2013 None Full Exam - ENT Ears/Nose/Throat otoscopic exam Right tympanic membrane: effusion 07/10/2013 None Full Exam - General 1994 Constitutional general appearance Overall: well developed 06/03/2013 None Full Exam - General 1995 Constitutional general appearance Overall: in no acute distress 06/03/2013 None Full Exam - General 1994 Constitutional general appearance Overall: well nourished 06/03/2013 None Full Exam - General 1994 Eyes pupils and irises Overall: pupils equal, round, reactive to light and accomodation 06/03/2013 None Full Exam - General 1995 Ears/Nose/Throat otoscopic exam Overall: external auditory canals clear 06/03/2013 None Full Exam - General 1995 Ears/Nose/Throat oral cavity/pharynx/larynx Overall: oral mucosa clear 06/03/2013 None Full Exam - General 1995 Ears/Nose/Throat oral cavity/pharynx/larynx Overall: oropharyngeal mucosa clear 06/03/2013 None Full Exam - General 1995 Ears/Nose/Throat oral cavity/pharynx/larynx Overall: no masses 06/03/2013 None Full Exam - General 1994 Respiratory auscultation Overall: breath sounds clear bilaterally 06/03/2013 None Full Exam - General 1994 Respiratory respiratory effort/rhythm Overall: no retractions 06/03/2013 None Full Exam - General 1994 Respiratory respiratory effort/rhythm Overall: normal rate 06/03/2013 None Full Exam - General 1994 Cardiovascular auscultation of heart Overall: regular rate 06/03/2013 None Full Exam - General 1994 Cardiovascular auscultation of heart Overall: normal heart sounds 06/03/2013 None Full Exam - General 1994 Cardiovascular auscultation of heart Overall: no murmurs 06/03/2013 None Full Exam - General 1994 Abdomen abdominal exam Overall: no tenderness 06/03/2013 None Full Exam - General 1994 Abdomen abdominal exam Overall: normal bowel sounds 06/03/2013 None Full Exam - General 1994 Musculoskeletal gait and station Overall: normal gait 06/03/2013 None Full Exam - General 1994 Musculoskeletal gait and station Overall: normal station 06/03/2013 None Full Exam - General 1994 Neurologic gait Overall: no ataxia, no unsteadiness 06/03/2013 None Full Exam - General 1994 Neurologic cranial nerves Overall: crainial nerves 2 - 12 grossly intact 06/03/2013 None Full Exam - General 1994 Psychiatric orientation/consciousness Overall: oriented to person, place and time 06/03/2013 None Full Exam - General 1994 Psychiatric mood and affect Overall: normal mood and affect 06/03/2013 None Full Exam - General 1994 Psychiatric appearance Overall: well-groomed, good eye contact 06/03/2013 None Full Exam - General 1995 Ears/Nose/Throat otoscopic exam Tympanic membrane: air-fluid level 06/03/2013 None Full Exam - General 1995 Ears/Nose/Throat otoscopic exam Tympanic membrane: bulging 06/03/2013 None Full Exam - General 1995 Constitutional general appearance Overall: well nourished 05/07/2013 None Full Exam - General 1995 Constitutional general appearance Overall: well developed 05/07/2013 None Full Exam - General 1994 Constitutional general appearance Overall: in no acute distress 05/07/2013 None Full Exam - General 1994 Eyes pupils and irises Overall: pupils equal, round, reactive to light and accomodation 05/07/2013 None Full Exam - General 1994 Ears/Nose/Throat otoscopic exam Overall: external auditory canals clear 05/07/2013 None Full Exam - General 1995 Ears/Nose/Throat otoscopic exam Overall: tympanic membranes clear 05/07/2013 None Full Exam - General 1995 Ears/Nose/Throat oral cavity/pharynx/larynx Overall: oral mucosa clear 05/07/2013 None Full Exam - General 1995 Ears/Nose/Throat oral cavity/pharynx/larynx Overall: oropharyngeal mucosa clear 05/07/2013 None Full Exam - General 1995 Ears/Nose/Throat oral cavity/pharynx/larynx Overall: no masses 05/07/2013 None Full Exam - General 1994 Respiratory auscultation Overall: breath sounds clear bilaterally 05/07/2013 None Full Exam - General 1994 Respiratory respiratory effort/rhythm Overall: no retractions 05/07/2013 None Full Exam - General 1994 Respiratory respiratory effort/rhythm Overall: normal rate 05/07/2013 None Full Exam - General 1994 Cardiovascular auscultation of heart Overall: regular rate 05/07/2013 None Full Exam - General 1994 Cardiovascular auscultation of heart Overall: normal heart sounds 05/07/2013 None Full Exam - General 1994 Cardiovascular auscultation of heart Overall: no murmurs 05/07/2013 None Full Exam - General 1994 Abdomen abdominal exam Overall: no tenderness 05/07/2013 None Full Exam - General 1995 Abdomen abdominal exam Overall: normal bowel sounds 05/07/2013 None Full Exam - General 1995 Neurologic gait Overall: no ataxia, no unsteadiness 05/07/2013 None Full Exam - General 1995 Neurologic cranial nerves Overall: crainial nerves 2 - 12 grossly intact 05/07/2013 None Full Exam - General 1995 Psychiatric orientation/consciousness Overall: oriented to person, place and time 05/07/2013 None Full Exam - General 1995 Psychiatric mood and affect Overall: normal mood and affect 05/07/2013 None Full Exam - General 1995 Psychiatric appearance Overall: well-groomed, good eye contact 05/07/2013 None Full Exam - General 1995 Musculoskeletal gait and station Overall: normal station 05/07/2013 None Full Exam - General 1995 Musculoskeletal gait and station Overall: normal gait 05/07/2013 None Full Exam - General 1995 Constitutional general appearance Overall: well developed 12/03/2012 None Full Exam - General 1995 Constitutional general appearance Overall: in no acute distress 12/03/2012 None Full Exam - General 1994 Constitutional general appearance Overall: well nourished 12/03/2012 None Full Exam - General 1994 Eyes conjunctiva/eyelids Overall: conjunctiva clear 12/03/2012 None Full Exam - General 1994 Eyes conjunctiva/eyelids Overall: cornea clear 12/03/2012 None Full Exam - General 1994 Eyes conjunctiva/eyelids Overall: eyelids normal 12/03/2012 None Full Exam - General 1994 Ears/Nose/Throat external ear Overall: normal appearance 12/03/2012 None Full Exam - General 1995 Ears/Nose/Throat external ear Overall: no masses 12/03/2012 None Full Exam - General 1994 Ears/Nose/Throat external ear Overall: normal mastoids 12/03/2012 None Full Exam - General 1995 Ears/Nose/Throat otoscopic exam Overall: external auditory canals clear 12/03/2012 None Full Exam - General 1995 Ears/Nose/Throat otoscopic exam Overall: tympanic membranes clear 12/03/2012 None Full Exam - General 1995 Ears/Nose/Throat oral cavity/pharynx/larynx Overall: oral mucosa clear 12/03/2012 None Full Exam - General 1995 Ears/Nose/Throat oral cavity/pharynx/larynx Overall: oropharyngeal mucosa clear 12/03/2012 None Full Exam - General 1995 Ears/Nose/Throat oral cavity/pharynx/larynx Overall: no masses 12/03/2012 None Full Exam - General 1995 Neck inspection of neck Overall: normal size 12/03/2012 None Full Exam - General 1995 Neck inspection of neck Overall: normal appearance 12/03/2012 None Full Exam - General 1995 Neck inspection of neck Overall: no masses 12/03/2012 None Full Exam - General 1995 Neck inspection of neck Overall: absence of swelling 12/03/2012 None Full Exam - General 1995 Respiratory auscultation Overall: breath sounds clear bilaterally 12/03/2012 None Full Exam - General 1994 Respiratory respiratory effort/rhythm Overall: no retractions 12/03/2012 None Full Exam - General 1995 Respiratory respiratory effort/rhythm Overall: normal rate 12/03/2012 None Full Exam - General 1994 Cardiovascular inspection of pedal pulses Overall: strong, equal bilaterally 12/03/2012 None Full Exam - General 1994 Cardiovascular extremities Overall: no clubbing 12/03/2012 None Full Exam - General 1994 Cardiovascular auscultation of heart Overall: regular rate 12/03/2012 None Full Exam - General 1994 Cardiovascular auscultation of heart Overall: normal heart sounds 12/03/2012 None Full Exam - General 1994 Cardiovascular auscultation of heart Overall: no murmurs 12/03/2012 None Full Exam - General 1994 Chest/Breast breast/chest inspection Overall: normal chest shape 12/03/2012 None Full Exam - General 1994 Abdomen abdominal exam Overall: no tenderness 12/03/2012 None Full Exam - General 1994 Abdomen abdominal exam Overall: normal bowel sounds 12/03/2012 None Full Exam - General 1994 Lymphatic neck nodes Overall: anterior cervical chain benign 12/03/2012 None Full Exam - General 1994 Lymphatic neck nodes Overall: posterior cervical chain benign 12/03/2012 None Full Exam - General 1994 Musculoskeletal gait and station Overall: normal gait 12/03/2012 None Full Exam - General 1994 Musculoskeletal gait and station Overall: normal station 12/03/2012 None Full Exam - General 1994 Musculoskeletal head and neck Overall: head atraumatic 12/03/2012 None Full Exam - General 1994 Musculoskeletal head and neck Overall: cervical spine benign 12/03/2012 None Full Exam - General 1994 Integument inspection of skin Overall: no rash, lesions 12/03/2012 None Full Exam - General 1994 Neurologic mental status Overall: alert 12/03/2012 None Full Exam - General 1994 Neurologic mental status Overall: oriented 12/03/2012 None Full Exam - General 1994 Psychiatric orientation/consciousness Overall: oriented to person, place and time 12/03/2012 None Full Exam - ENT Constitutional general appearance Overall: well nourished 09/24/2012 None Full Exam - ENT Constitutional general appearance Overall: well developed 09/24/2012 None Full Exam - ENT Constitutional general appearance Overall: in no acute distress 09/24/2012 None Full Exam - ENT Neurologic orientation Overall: oriented to person, place and time 09/24/2012 None Full Exam - ENT Lymphatic palpation of lymph nodes Overall: posterior cervical chain benign 09/24/2012 None Full Exam - ENT Lymphatic palpation of lymph nodes Overall: anterior cervical chain benign 09/24/2012 None Full Exam - ENT Cardiovascular auscultation of heart Overall: regular rate 09/24/2012 None Full Exam - ENT Cardiovascular auscultation of heart Overall: normal heart sounds 09/24/2012 None Full Exam - ENT Cardiovascular auscultation of heart Overall: no murmurs 09/24/2012 None Full Exam - ENT Respiratory auscultation Overall: breath sounds clear bilaterally 09/24/2012 None Full Exam - ENT Face and Head palpation Left maxillary sinus: tender 09/24/2012 None Full Exam - ENT Face and Head palpation Right maxillary sinus: tender 09/24/2012 None Full Exam - ENT Ears/Nose/Throat otoscopic exam Overall: external auditory canals normal 09/24/2012 None Full Exam - ENT Ears/Nose/Throat otoscopic exam Overall: tympanic membranes normal 09/24/2012 None Full Exam - ENT Ears/Nose/Throat oropharynx Overall: oral mucosa clear 09/24/2012 None Full Exam - General 1994 Constitutional general appearance Overall: well developed 09/10/2012 None Full Exam - General 1994 Constitutional general appearance Overall: in no acute distress 09/10/2012 None Full Exam - General 1994 Constitutional general appearance Overall: well nourished 09/10/2012 None Full Exam - General 1994 Eyes conjunctiva/eyelids Overall: conjunctiva clear 09/10/2012 None Full Exam - General 1994 Eyes conjunctiva/eyelids Overall: cornea clear 09/10/2012 None Full Exam - General 1994 Eyes conjunctiva/eyelids Overall: eyelids normal 09/10/2012 None Full Exam - General 1994 Ears/Nose/Throat external ear Overall: normal appearance 09/10/2012 None Full Exam - General 1994 Ears/Nose/Throat external ear Overall: no masses 09/10/2012 None Full Exam - General 1995 Ears/Nose/Throat external ear Overall: normal mastoids 09/10/2012 None Full Exam - General 1995 Ears/Nose/Throat otoscopic exam Overall: external auditory canals clear 09/10/2012 None Full Exam - General 1995 Ears/Nose/Throat otoscopic exam Overall: tympanic membranes clear 09/10/2012 None Full Exam - General 1995 Ears/Nose/Throat oral cavity/pharynx/larynx Overall: oral mucosa clear 09/10/2012 None Full Exam - General 1995 Ears/Nose/Throat oral cavity/pharynx/larynx Overall: no masses 09/10/2012 None Full Exam - General 1994 Respiratory auscultation Overall: breath sounds clear bilaterally 09/10/2012 None Full Exam - General 1994 Respiratory respiratory effort/rhythm Overall: no retractions 09/10/2012 None Full Exam - General 1994 Respiratory respiratory effort/rhythm Overall: normal rate 09/10/2012 None Full Exam - General 1994 Cardiovascular inspection of pedal pulses Overall: strong, equal bilaterally 09/10/2012 None Full Exam - General 1994 Cardiovascular extremities Overall: no clubbing 09/10/2012 None Full Exam - General 1994 Cardiovascular auscultation of heart Overall: regular rate 09/10/2012 None Full Exam - General 1994 Cardiovascular auscultation of heart Overall: normal heart sounds 09/10/2012 None Full Exam - General 1994 Cardiovascular auscultation of heart Overall: no murmurs 09/10/2012 None Full Exam - General 1994 Abdomen abdominal exam Overall: no tenderness 09/10/2012 None Full Exam - General 1994 Abdomen abdominal exam Overall: normal bowel sounds 09/10/2012 None Full Exam - General 1994 Lymphatic neck nodes Overall: anterior cervical chain benign 09/10/2012 None Full Exam - General 1994 Lymphatic neck nodes Overall: posterior cervical chain benign 09/10/2012 None Full Exam - General 1994 Integument inspection of skin Overall: no rash, lesions 09/10/2012 None Full Exam - General 1994 Neurologic mental status Overall: alert 09/10/2012 None Full Exam - General 1994 Neurologic mental status Overall: oriented 09/10/2012 None Full Exam - General 1994 Psychiatric orientation/consciousness Overall: oriented to person, place and time 09/10/2012 None Full Exam - General 1994 Ears/Nose/Throat oral cavity/pharynx/larynx Oropharynx: thrush 09/10/2012 None Full Exam - General 1994 Constitutional general appearance Overall: well developed 08/08/2012 None Full Exam - General 1994 Constitutional general appearance Overall: in no acute distress 08/08/2012 None Full Exam - General 1994 Constitutional general appearance Overall: well nourished 08/08/2012 None Full Exam - General 1994 Eyes conjunctiva/eyelids Overall: conjunctiva clear 08/08/2012 None Full Exam - General 1994 Eyes conjunctiva/eyelids Overall: cornea clear 08/08/2012 None Full Exam - General 1994 Eyes conjunctiva/eyelids Overall: eyelids normal 08/08/2012 None Full Exam - General 1995 Ears/Nose/Throat external ear Overall: normal appearance 08/08/2012 None Full Exam - General 1994 Ears/Nose/Throat external ear Overall: no masses 08/08/2012 None Full Exam - General 1994 Ears/Nose/Throat external ear Overall: normal mastoids 08/08/2012 None Full Exam - General 1994 Ears/Nose/Throat otoscopic exam Overall: external auditory canals clear 08/08/2012 None Full Exam - General 1994 Ears/Nose/Throat otoscopic exam Overall: tympanic membranes clear 08/08/2012 None Full Exam - General 1994 Ears/Nose/Throat oral cavity/pharynx/larynx Overall: oral mucosa clear 08/08/2012 None Full Exam - General 1995 Ears/Nose/Throat oral cavity/pharynx/larynx Overall: oropharyngeal mucosa clear 08/08/2012 None Full Exam - General 1994 Ears/Nose/Throat oral cavity/pharynx/larynx Overall: no masses 08/08/2012 None Full Exam - General 1994 Neck inspection of neck Overall: normal size 08/08/2012 None Full Exam - General 1994 Neck inspection of neck Overall: normal appearance 08/08/2012 None Full Exam - General 1994 Neck inspection of neck Overall: no masses 08/08/2012 None Full Exam - General 1994 Neck inspection of neck Overall: absence of swelling 08/08/2012 None Full Exam - General 1994 Respiratory auscultation Overall: breath sounds clear bilaterally 08/08/2012 None Full Exam - General 1994 Respiratory respiratory effort/rhythm Overall: no retractions 08/08/2012 None Full Exam - General 1994 Respiratory respiratory effort/rhythm Overall: normal rate 08/08/2012 None Full Exam - General 1994 Cardiovascular inspection of pedal pulses Overall: strong, equal bilaterally 08/08/2012 None Full Exam - General 1994 Cardiovascular extremities Overall: no clubbing 08/08/2012 None Full Exam - General 1994 Cardiovascular auscultation of heart Overall: regular rate 08/08/2012 None Full Exam - General 1994 Cardiovascular auscultation of heart Overall: normal heart sounds 08/08/2012 None Full Exam - General 1994 Cardiovascular auscultation of heart Overall: no murmurs 08/08/2012 None Full Exam - General 1994 Chest/Breast breast/chest inspection Overall: normal chest shape 08/08/2012 None Full Exam - General 1994 Abdomen abdominal exam Overall: no tenderness 08/08/2012 None Full Exam - General 1994 Abdomen abdominal exam Overall: normal bowel sounds 08/08/2012 None Full Exam - General 1994 Lymphatic neck nodes Overall: anterior cervical chain benign 08/08/2012 None Full Exam - General 1994 Lymphatic neck nodes Overall: posterior cervical chain benign 08/08/2012 None Full Exam - General 1994 Musculoskeletal gait and station Overall: normal gait 08/08/2012 None Full Exam - General 1994 Musculoskeletal gait and station Overall: normal station 08/08/2012 None Full Exam - General 1994 Musculoskeletal head and neck Overall: head atraumatic 08/08/2012 None Full Exam - General 1994 Musculoskeletal head and neck Overall: cervical spine benign 08/08/2012 None Full Exam - General 1994 Integument inspection of skin Overall: no rash, lesions 08/08/2012 None Full Exam - General 1994 Neurologic mental status Overall: alert 08/08/2012 None Full Exam - General 1994 Neurologic mental status Overall: oriented 08/08/2012 None Full Exam - General 1994 Psychiatric orientation/consciousness Overall: oriented to person, place and time 08/08/2012 None Full Exam - General 1994 Ears/Nose/Throat otoscopic exam Overall: external auditory canals clear 02/15/2012 None Full Exam - General 1994 Ears/Nose/Throat oral cavity/pharynx/larynx Overall: oropharyngeal mucosa clear 02/15/2012 None Full Exam - General 1994 Ears/Nose/Throat oral cavity/pharynx/larynx Overall: no masses 02/15/2012 None Full Exam - General 1994 Ears/Nose/Throat oral cavity/pharynx/larynx Overall: oral mucosa clear 02/15/2012 None Full Exam - General 1994 Eyes conjunctiva/eyelids Overall: conjunctiva clear 02/15/2012 None Full Exam - General 1994 Eyes conjunctiva/eyelids Overall: eyelids normal 02/15/2012 None Full Exam - General 1994 Eyes conjunctiva/eyelids Overall: cornea clear 02/15/2012 None Full Exam - General 1995 Neck inspection of neck Overall: normal appearance 02/15/2012 None Full Exam - General 1994 Neck inspection of neck Overall: absence of swelling 02/15/2012 None Full Exam - General 1994 Neck inspection of neck Overall: no masses 02/15/2012 None Full Exam - General 1994 Neck inspection of neck Overall: normal size 02/15/2012 None Full Exam - General 1994 Respiratory respiratory effort/rhythm Overall: normal rate 02/15/2012 None Full Exam - General 1994 Respiratory respiratory effort/rhythm Overall: no retractions 02/15/2012 None Full Exam - General 1994 Respiratory auscultation Overall: breath sounds clear bilaterally 02/15/2012 None Full Exam - General 1994 Cardiovascular auscultation of heart Overall: regular rate 02/15/2012 None Full Exam - General 1994 Constitutional general appearance Overall: well nourished 02/15/2012 None Full Exam - General 1994 Constitutional general appearance Overall: well developed 02/15/2012 None Full Exam - General 1994 Constitutional general appearance Overall: in no acute distress 02/15/2012 None Full Exam - General 1994 Ears/Nose/Throat external ear Overall: no masses 02/15/2012 None Full Exam - General 1994 Ears/Nose/Throat external ear Overall: normal appearance 02/15/2012 None Full Exam - General 1994 Ears/Nose/Throat external ear Overall: normal mastoids 02/15/2012 None Full Exam - General 1994 Ears/Nose/Throat otoscopic exam Overall: tympanic membranes clear 02/15/2012 None Full Exam - General 1994 Integument inspection of skin Overall: no rash, lesions 02/15/2012 None Full Exam - General 1994 Neurologic mental status Overall: alert 02/15/2012 None Full Exam - General 1994 Neurologic mental status Overall: oriented 02/15/2012 None Full Exam - General 1994 Psychiatric orientation/consciousness Overall: oriented to person, place and time 02/15/2012 None Full Exam - General 1994 Cardiovascular auscultation of heart Overall: normal heart sounds 02/15/2012 None Full Exam - General 1994 Cardiovascular auscultation of heart Overall: no murmurs 02/15/2012 None Full Exam - General 1994 Cardiovascular extremities Overall: no clubbing 02/15/2012 None Full Exam - General 1994 Cardiovascular inspection of pedal pulses Overall: strong, equal bilaterally 02/15/2012 None Full Exam - General 1994 Chest/Breast breast/chest inspection Overall: normal chest shape 02/15/2012 None Full Exam - General 1994 Abdomen abdominal exam Overall: no tenderness 02/15/2012 None Full Exam - General 1994 Abdomen abdominal exam Overall: normal bowel sounds 02/15/2012 None Full Exam - General 1994 Lymphatic neck nodes Overall: anterior cervical chain benign 02/15/2012 None Full Exam - General 1994 Lymphatic neck nodes Overall: posterior cervical chain benign 02/15/2012 None Full Exam - General 1994 Musculoskeletal head and neck Overall: cervical spine benign 02/15/2012 None Full Exam - General 1994 Musculoskeletal head and neck Overall: head atraumatic 02/15/2012 None Full Exam - General 1994 Musculoskeletal gait and station Overall: normal station 02/15/2012 None Full Exam - General 1994 Musculoskeletal gait and station Overall: normal gait 02/15/2012 None Full Exam - General 1994 Constitutional general appearance Overall: well nourished 11/10/2011 None Full Exam - General 1994 Constitutional general appearance Overall: in no acute distress 11/10/2011 None Full Exam - General 1994 Eyes pupils and irises Overall: pupils equal, round, reactive to light and accomodation 11/10/2011 None Full Exam - General 1994 Ears/Nose/Throat otoscopic exam Overall: external auditory canals clear 11/10/2011 None Full Exam - General 1994 Ears/Nose/Throat otoscopic exam Overall: tympanic membranes clear 11/10/2011 None Full Exam - General 1994 Ears/Nose/Throat oral cavity/pharynx/larynx Overall: oral mucosa clear 11/10/2011 None Full Exam - General 1994 Ears/Nose/Throat oral cavity/pharynx/larynx Overall: oropharyngeal mucosa clear 11/10/2011 None Full Exam - General 1994 Ears/Nose/Throat oral cavity/pharynx/larynx Overall: no masses 11/10/2011 None Full Exam - General 1994 Respiratory auscultation Overall: breath sounds clear bilaterally 11/10/2011 None Full Exam - General 1994 Respiratory respiratory effort/rhythm Overall: no retractions 11/10/2011 None Full Exam - General 1994 Respiratory respiratory effort/rhythm Overall: normal rate 11/10/2011 None Full Exam - General 1994 Cardiovascular auscultation of heart Overall: regular rate 11/10/2011 None Full Exam - General 1994 Cardiovascular auscultation of heart Overall: normal heart sounds 11/10/2011 None Full Exam - General 1994 Cardiovascular auscultation of heart Overall: no murmurs 11/10/2011 None Full Exam - General 1994 Neurologic gait Overall: no ataxia, no unsteadiness 11/10/2011 None Full Exam - General 1994 Neurologic cranial nerves Overall: crainial nerves 2 - 12 grossly intact 11/10/2011 None Full Exam - General 1994 Psychiatric orientation/consciousness Overall: oriented to person, place and time 11/10/2011 None Full Exam - General 1994 Psychiatric mood and affect Overall: normal mood and affect 11/10/2011 None Full Exam - General 1994 Psychiatric appearance Overall: well-groomed, good eye contact 11/10/2011 None Full Exam - General 1994 Constitutional general appearance Overall: in no acute distress 11/10/2011 None Full Exam - General 1994 Constitutional general appearance Overall: well developed 11/10/2011 None Full Exam - General 1994 Abdomen abdominal exam Contour: rounded 11/10/2011 None Full Exam - General 1994 Abdomen abdominal exam Bowel sounds: hyperactive 11/10/2011 None Full Exam - General 1994 Abdomen abdominal exam Percussion: dull 11/10/2011 None Full Exam - General 1994 Abdomen abdominal exam Upper quadrant: tender to palpation 11/10/2011 None Full Exam - General 1994 Abdomen abdominal exam Upper quadrant: non-tender to palpation 11/10/2011 None Full Exam - General 1994 Abdomen abdominal exam Upper quadrant: involuntary guarding 11/10/2011 None Full Exam - General 1994 Abdomen abdominal exam Upper quadrant: rebound tenderness 11/10/2011 None Full Exam - General 1994 Abdomen abdominal exam Lower quadrant: non-tender to palpation 11/10/2011 None Full Exam - General 1994 Musculoskeletal spine, ribs and pelvis Overall: good posture 11/10/2011 None Full Exam - General 1994 Ears/Nose/Throat oral cavity/pharynx/larynx Overall: oropharyngeal mucosa clear 08/01/2011 None Full Exam - General 1994 Ears/Nose/Throat oral cavity/pharynx/larynx Overall: no masses 08/01/2011 None Full Exam - General 1994 Ears/Nose/Throat oral cavity/pharynx/larynx Overall: oral mucosa clear 08/01/2011 None Full Exam - General 1994 Respiratory respiratory effort/rhythm Overall: normal rate 08/01/2011 None Full Exam - General 1994 Respiratory respiratory effort/rhythm Overall: no retractions 08/01/2011 None Full Exam - General 1994 Respiratory auscultation Overall: breath sounds clear bilaterally 08/01/2011 None Full Exam - General 1994 Cardiovascular auscultation of heart Overall: regular rate 08/01/2011 None Full Exam - General 1994 Cardiovascular auscultation of heart Overall: normal heart sounds 08/01/2011 None Full Exam - General 1994 Cardiovascular auscultation of heart Overall: no murmurs 08/01/2011 None Full Exam - General 1994 Psychiatric orientation/consciousness Overall: oriented to person, place and time 08/01/2011 None Full Exam - General 1994 Psychiatric mood and affect Overall: normal mood and affect 08/01/2011 None Full Exam - General 1994 Psychiatric appearance Overall: well-groomed, good eye contact 08/01/2011 None Full Exam - General 1994 Neurologic gait Overall: no ataxia, no unsteadiness 08/01/2011 None Full Exam - General 1994 Neurologic cranial nerves Overall: crainial nerves 2 - 12 grossly intact 08/01/2011 None Full Exam - General 1994 Abdomen abdominal exam Overall: no tenderness 08/01/2011 None Full Exam - General 1994 Abdomen abdominal exam Overall: normal bowel sounds 08/01/2011 None Full Exam - General 1994 Constitutional general appearance Overall: well nourished 08/01/2011 None Full Exam - General 1994 Constitutional general appearance Overall: well developed 08/01/2011 None Full Exam - General 1994 Constitutional general appearance Overall: in no acute distress 08/01/2011 None Full Exam - General 1994 Eyes pupils and irises Overall: pupils equal, round, reactive to light and accomodation 08/01/2011 None Full Exam - General 1994 Ears/Nose/Throat otoscopic exam Overall: tympanic membranes clear 08/01/2011 None Full Exam - General 1994 Ears/Nose/Throat otoscopic exam Overall: external auditory canals clear 08/01/2011 None Full Exam - ENT Constitutional general appearance Overall: well nourished 07/14/2011 None Full Exam - ENT Constitutional general appearance Overall: well developed 07/14/2011 None Full Exam - ENT Constitutional general appearance Overall: in no acute distress 07/14/2011 None Full Exam - ENT Ears/Nose/Throat otoscopic exam Left tympanic membrane: air-fluid level 07/14/2011 None Full Exam - ENT Ears/Nose/Throat otoscopic exam Right tympanic membrane: air-fluid level 07/14/2011 None Full Exam - ENT Ears/Nose/Throat nasal mucosa, septum, turbinates Left nasal cavity: erythema 07/14/2011 None Full Exam - ENT Ears/Nose/Throat nasal mucosa, septum, turbinates Right nasal cavity: erythema 07/14/2011 None Full Exam - ENT Ears/Nose/Throat oropharynx Overall: oral mucosa clear 07/14/2011 None Full Exam - ENT Face and Head palpation Left maxillary sinus: tender 07/14/2011 None Full Exam - ENT Face and Head palpation Right maxillary sinus: tender 07/14/2011 None Full Exam - ENT Respiratory auscultation Overall: breath sounds clear bilaterally 07/14/2011 None Full Exam - ENT Cardiovascular auscultation of heart Overall: normal heart sounds 07/14/2011 None Full Exam - ENT Lymphatic palpation of lymph nodes Overall: shotty lymphadenopathy 07/14/2011 None Full Exam - ENT Face and Head palpation Left frontal sinus: tender 07/14/2011 None Full Exam - ENT Face and Head palpation Right frontal sinus: tender 07/14/2011 None Full Exam - Cardiology Constitutional general appearance Overall: well nourished 05/23/2011 None Full Exam - Cardiology Constitutional general appearance Overall: well developed 05/23/2011 None Full Exam - Cardiology Constitutional general appearance Overall: in no acute distress 05/23/2011 None Full Exam - Cardiology Eyes conjunctiva/eyelids Overall: conjunctiva clear 05/23/2011 None Full Exam - Cardiology Ears/Nose/Throat oral mucosa Overall: oral mucosa clear 05/23/2011 None Full Exam - Cardiology Respiratory respiratory effort/rhythm Overall: no retractions 05/23/2011 None Full Exam - Cardiology Respiratory respiratory effort/rhythm Overall: normal rate 05/23/2011 None Full Exam - Cardiology Respiratory auscultation Overall: breath sounds clear bilaterally 05/23/2011 None Full Exam - Cardiology Cardiovascular auscultation of heart Overall: regular rate 05/23/2011 None Full Exam - Cardiology Cardiovascular auscultation of heart Overall: normal heart sounds 05/23/2011 None Full Exam - Cardiology Cardiovascular auscultation of heart Overall: no murmurs 05/23/2011 None Full Exam - Cardiology Cardiovascular extremities Overall: without clubbing, cyanosis, or edema 05/23/2011 None Full Exam - Cardiology Abdomen abdominal exam Overall: no tenderness 05/23/2011 None Full Exam - Cardiology Abdomen abdominal exam Overall: normal bowel sounds 05/23/2011 None Full Exam - Cardiology Lymphatic neck nodes Overall: anterior cervical chain benign 05/23/2011 None Full Exam - Cardiology Lymphatic neck nodes Overall: posterior cervical chain benign 05/23/2011 None Full Exam - Cardiology Extremities digits and nails Overall: no clubbing 05/23/2011 None Full Exam - Cardiology Integument inspection/palpation Overall: no rash, lesions 05/23/2011 None Full Exam - Cardiology Neurologic cranial nerves Overall: cranial nerves 1-12 intact 05/23/2011 None Full Exam - Cardiology Psychiatric orientation/consciousness Overall: oriented to person, place and time 05/23/2011 None Full Exam - ENT Ears/Nose/Throat nasal mucosa, septum, turbinates Left nasal cavity: erythema 05/03/2011 None Full Exam - ENT Ears/Nose/Throat nasal mucosa, septum, turbinates Right nasal cavity: erythema 05/03/2011 None Full Exam - ENT Ears/Nose/Throat oropharynx Overall: oral mucosa clear 05/03/2011 None Full Exam - ENT Face and Head palpation Left maxillary sinus: tender 05/03/2011 None Full Exam - ENT Face and Head palpation Right maxillary sinus: tender 05/03/2011 None Full Exam - ENT Respiratory auscultation Overall: breath sounds clear bilaterally 05/03/2011 None Full Exam - ENT Cardiovascular auscultation of heart Overall: normal heart sounds 05/03/2011 None Full Exam - ENT Lymphatic palpation of lymph nodes Overall: shotty lymphadenopathy 05/03/2011 None Full Exam - ENT Constitutional general appearance Overall: well nourished 05/03/2011 None Full Exam - ENT Constitutional general appearance Overall: well developed 05/03/2011 None Full Exam - ENT Constitutional general appearance Overall: in no acute distress 05/03/2011 None Full Exam - ENT Ears/Nose/Throat otoscopic exam Left tympanic membrane: air-fluid level 05/03/2011 None Full Exam - ENT Ears/Nose/Throat otoscopic exam Right tympanic membrane: air-fluid level 05/03/2011 None Full Exam - Cardiology Lymphatic neck nodes Overall: posterior cervical chain benign 04/25/2011 None Full Exam - Cardiology Extremities digits and nails Overall: no clubbing 04/25/2011 None Full Exam - Cardiology Integument inspection/palpation Overall: no rash, lesions 04/25/2011 None Full Exam - Cardiology Psychiatric orientation/consciousness Overall: oriented to person, place and time 04/25/2011 None Full Exam - Cardiology Neurologic cranial nerves Overall: cranial nerves 1-12 intact 04/25/2011 None Full Exam - Cardiology Constitutional general appearance Overall: well nourished 04/25/2011 None Full Exam - Cardiology Constitutional general appearance Overall: well developed 04/25/2011 None Full Exam - Cardiology Constitutional general appearance Overall: in no acute distress 04/25/2011 None Full Exam - Cardiology Respiratory auscultation Overall: breath sounds clear bilaterally 04/25/2011 None Full Exam - Cardiology Respiratory respiratory effort/rhythm Overall: no retractions 04/25/2011 None Full Exam - Cardiology Respiratory respiratory effort/rhythm Overall: normal rate 04/25/2011 None Full Exam - Cardiology Eyes conjunctiva/eyelids Overall: conjunctiva clear 04/25/2011 None Full Exam - Cardiology Ears/Nose/Throat oral mucosa Overall: oral mucosa clear 04/25/2011 None Full Exam - Cardiology Cardiovascular auscultation of heart Overall: normal heart sounds 04/25/2011 None Full Exam - Cardiology Abdomen abdominal exam Overall: no tenderness 04/25/2011 None Full Exam - Cardiology Abdomen abdominal exam Overall: normal bowel sounds 04/25/2011 None Full Exam - Cardiology Lymphatic neck nodes Overall: anterior cervical chain benign 04/25/2011 None Full Exam - Cardiology Cardiovascular auscultation of heart Overall: no murmurs 04/25/2011 None Full Exam - Cardiology Cardiovascular auscultation of heart Overall: regular rate 04/25/2011 None Full Exam - Cardiology Cardiovascular extremities Overall: without clubbing, cyanosis, or edema 04/25/2011 None Procedures Procedure Codes Date THER/PROPH/DIAG INJ SC/IM CPT-4: 33747 02/20/2019 ROCEPHIN, PER 250 MG CPT- 4: J0696 02/20/2019 URINALYSIS NONAUTO W/O SCOPE CPT-4: 69318 07/10/2018 TRIAMCINOLONE ACET INJ NOS CPT-4: J3301 05/28/2018 ROCEPHIN, PER 250 MG CPT- 4: J0696 05/28/2018 ROCEPHIN, PER 250 MG CPT- 4: J0696 01/19/2018 TRIAMCINOLONE ACET INJ NOS CPT-4: J3301 01/19/2018 PPPS, SUBSEQ VISIT CPT- 4: G0439 11/23/2017 TRIAMCINOLONE ACET INJ NOS CPT-4: J3301 06/27/2017 THER/PROPH/DIAG INJ SC/IM CPT-4: 21228 04/20/2017 TRIAMCINOLONE ACET INJ NOS CPT-4: J3301 04/20/2017 TRIAMCINOLONE ACET INJ NOS CPT-4: J3301 03/14/2017 ROCEPHIN, PER 250 MG CPT- 4: J0696 03/14/2017 DESTRUCT PREMALG LESION CPT-4: 63790 12/05/2016 DESTRUCT PREMALG LES 2-14 CPT-4: 43850 12/05/2016 URINALYSIS NONAUTO W/O SCOPE CPT-4: 33826 11/28/2016 ROCEPHIN, PER 250 MG CPT- 4: J0696 11/28/2016 PPPS, SUBSEQ VISIT CPT- 4: G0439 11/07/2016 THER/PROPH/DIAG INJ SC/IM CPT-4: 45650 11/07/2016 TRIAMCINOLONE ACET INJ NOS CPT-4: J3301 11/07/2016 ROCEPHIN, PER 250 MG CPT- 4: J0696 11/07/2016 THER/PROPH/DIAG INJ SC/IM CPT-4: 34594 08/15/2016 TRIAMCINOLONE ACET INJ NOS CPT-4: J3301 08/15/2016 ROCEPHIN, PER 250 MG CPT- 4: J0696 08/15/2016 URINALYSIS NONAUTO W/O SCOPE CPT-4: 91862 05/05/2016 ROCEPHIN, PER 250 MG CPT- 4: J0696 12/07/2015 TRIAMCINOLONE ACET INJ NOS CPT-4: J3301 11/24/2015 ROCEPHIN, PER 250 MG CPT- 4: J0696 11/24/2015 THER/PROPH/DIAG INJ SC/IM CPT-4: 90346 11/24/2015 THER/PROPH/DIAG INJ SC/IM CPT-4: 90498 08/27/2015 KETOROLAC TROMETHAMINE INJ CPT-4: J1885 08/27/2015 PROMETHAZINE HCL INJECTION CPT-4: J2550 08/27/2015 THER/PROPH/DIAG INJ SC/IM CPT-4: 17611 08/10/2015 TRIAMCINOLONE ACET INJ NOS CPT-4: J3301 08/10/2015 ROCEPHIN, PER 250 MG CPT- 4: J0696 08/10/2015 C WOUN RTS (CULTURE OTHR SPECIMN AEROBIC) CPT-4: 86822 07/28/2015 THER/PROPH/DIAG INJ SC/IM CPT-4: 79036 03/19/2015 TRIAMCINOLONE ACET INJ NOS CPT-4: J3301 03/19/2015 ROCEPHIN, PER 250 MG CPT- 4: J0696 06/23/2014 TRIAMCINOLONE ACET INJ NOS CPT-4: J3301 06/23/2014 INJ TRIGGER POINT 1/2 MUSCL CPT-4: 52378 06/05/2014 URINALYSIS NONAUTO W/O SCOPE CPT-4: 50942 02/11/2014 URINALYSIS NONAUTO W/O SCOPE CPT-4: 32190 10/15/2013 ROCEPHIN, PER 250 MG CPT- 4: J0696 09/24/2013 THER/PROPH/DIAG INJ SC/IM CPT-4: 83773 09/19/2013 ROCEPHIN, PER 250 MG CPT- 4: J0696 09/19/2013 PRESCRIP TRANSMIT VIA ERX SY CPT-4: G8553 08/05/2013 ROCEPHIN, PER 250 MG CPT- 4: J0696 07/10/2013 THER/PROPH/DIAG INJ SC/IM CPT-4: 99405 07/10/2013 TRIAMCINOLONE ACET INJ NOS CPT-4: J3301 07/10/2013 PRESCRIP TRANSMIT VIA ERX SY CPT-4: G8553 07/10/2013 11055 EST. PATIENT, LEVEL III CPT-4: 78130 06/03/2013 PRESCRIP TRANSMIT VIA ERX SY CPT-4: G8553 06/03/2013 PRESCRIP TRANSMIT VIA ERX SY CPT-4: G8553 05/07/2013 ROUTINE VENIPUNCTURE CPT- 4: 88944 04/30/2013 ROUTINE VENIPUNCTURE CPT- 4: 65193 11/29/2012 TRIAMCINOLONE ACET INJ NOS CPT-4: J3301 09/24/2012 THER/PROPH/DIAG INJ SC/IM CPT-4: 98298 09/24/2012 URINALYSIS NONAUTO W/O SCOPE CPT-4: 03276 09/24/2012 PRESCRIP TRANSMIT VIA ERX SY CPT-4: G8553 09/24/2012 PRESCRIP TRANSMIT VIA ERX SY CPT-4: G8553 09/10/2012 PRESCRIP TRANSMIT VIA ERX SY CPT-4: G8553 08/08/2012 ROUTINE VENIPUNCTURE CPT- 4: 56695 08/07/2012 ROUTINE VENIPUNCTURE CPT- 4: 18119 02/16/2012 URINALYSIS NONAUTO W/O SCOPE CPT-4: 45876 02/15/2012 ROCEPHIN, PER 250 MG CPT- 4: J0696 02/15/2012 PRESCRIP TRANSMIT VIA ERX SY CPT-4: G8553 02/15/2012 ROUTINE VENIPUNCTURE CPT- 4: 62490 11/08/2011 ROCEPHIN, PER 250 MG CPT- 4: J0696 07/14/2011 THER/PROPH/DIAG INJ SC/IM CPT-4: 86963 07/14/2011 Influenza Virus Vaccine, Split Virus, >3 Yrs, IM CPT-4: 86041 05/23/2011 IMMUNIZATION ADMIN CPT- 4: 13755 05/23/2011 THER/PROPH/DIAG INJ SC/IM CPT-4: 83852 05/03/2011 ROCEPHIN, PER 250 MG CPT- 4: J0696 05/03/2011 TRIAMCINOLONE ACET INJ NOS CPT-4: J3301 05/03/2011 Vital Signs Date Vital 02/25/2019 BMI: 31.9 Code: 96641-3 Height: 4'11" Weight: 158 lbs 02/20/2019 Blood Pressure 1: 124/76 Code: 8480-6 BMI: 31.9 Code: 12976-7 Heart Rate 1: 67 bpm Height: 4'11" SpO2: 97% Weight: 158 lbs 01/29/2019 Blood Pressure 1: 138/88 Code: 8480-6 BMI: 31.9 Code: 07164-6 Heart Rate 1: 74 bpm Height: 4'11" SpO2: 94% Weight: 158 lbs 11/27/2018 Blood Pressure 1: 144/82 Code: 8480-6 Heart Rate 1: 67 bpm SpO2: 93% 11/16/2018 Blood Pressure 1: 168/100 Code: 8480-6 Heart Rate 1: 74 bpm SpO2: 96% 11/13/2018 Blood Pressure 1: 184/98 Code: 8480-6 BMI: 32.1 Code: 34012-1 Heart Rate 1: 68 bpm Height: 4'11" SpO2: 96% Weight: 159 lbs 10/30/2018 Blood Pressure 1: 158/98 Code: 8480-6 BMI: 31.7 Code: 83245-8 Heart Rate 1: 80 bpm Height: 4'11" SpO2: 96% Weight: 157 lbs 10/08/2018 Blood Pressure 1: 140/80 Code: 8480-6 BMI: 32.1 Code: 61988-0 Heart Rate 1: 92 bpm Height: 4'11" SpO2: 103% Weight: 159 lbs 07/16/2018 Blood Pressure 1: 142/80 Code: 8480-6 BMI: 31.1 Code: 08674-9 Heart Rate 1: 78 bpm Height: 4'11" SpO2: 98% Weight: 154 lbs 07/10/2018 Blood Pressure 1: 156/82 Code: 8480-6 BMI: 31.1 Code: 55291-3 Heart Rate 1: 63 bpm Height: 4'11" SpO2: 99% Weight: 154 lbs 05/28/2018 Blood Pressure 1: 142/80 Code: 8480-6 Heart Rate 1: 82 bpm Height: SpO2: 97% Temperature: 35.9 (C) / 96.6 (F) Weight: 02/07/2018 Height: Weight: 01/19/2018 Blood Pressure 1: 128/76 Code: 8480-6 BMI: 31.2 Code: 71665-0 Heart Rate 1: 71 bpm Height: 4'11" SpO2: 96% Temperature: 36.5 (C) / 97.7 (F) Weight: 154 lbs 8 oz 11/23/2017 Blood Pressure 1: 146/80 Code: 8480-6 BMI: 31.7 Code: 78897-1 Heart Rate 1: 64 bpm Height: 4'11" SpO2: 97% Waist Measure (cm): 89 cm Weight: 157 lbs 09/12/2017 Blood Pressure 1: 140/86 Code: 8480-6 Heart Rate 1: 62 bpm SpO2: 96% Temperature: 36.6 (C) / 97.8 (F) Weight: 153 lbs 07/25/2017 Blood Pressure 1: 140/72 Code: 8480-6 BMI: 31.3 Code: 89986-6 Heart Rate 1: 76 bpm Height: 4'11" SpO2: 97% Temperature: 37.2 (C) / 99.0 (F) Weight: 155 lbs 06/27/2017 Blood Pressure 1: 144/84 Code: 8480-6 BMI: 31.1 Code: 39242-1 Heart Rate 1: 63 bpm Height: 4'11" SpO2: 99% Temperature: 36.4 (C) / 97.6 (F) Weight: 154 lbs 05/08/2017 Blood Pressure 1: 142/86 Code: 8480-6 BMI: 30.9 Code: 36083-1 Height: 4'11" Temperature: 36.3 (C) / 97.4 (F) Weight: 153 lbs 03/14/2017 Blood Pressure 1: 146/82 Code: 8480-6 BMI: 30.9 Code: 72054-5 Heart Rate 1: 64 bpm Height: 4'11" SpO2: 94% Weight: 153 lbs 02/20/2017 Blood Pressure 1: 142/80 Code: 8480-6 BMI: 30.9 Code: 58202-7 Heart Rate 1: 75 bpm Height: 4'11" SpO2: 97% Weight: 153 lbs 02/06/2017 Blood Pressure 1: 138/90 Code: 8480-6 BMI: 31.5 Code: 80480-7 Heart Rate 1: 61 bpm Height: 4'11" SpO2: 98% Weight: 156 lbs 12/05/2016 Blood Pressure 1: 122/72 Code: 8480-6 Heart Rate 1: 59 bpm Height: 4'11" SpO2: 98% Weight: 11/28/2016 Blood Pressure 1: 154/86 Code: 8480-6 BMI: 31.3 Code: 17784-5 Heart Rate 1: 64 bpm Height: 4'11" SpO2: 94% Temperature: 36.2 (C) / 97.2 (F) Weight: 155 lbs 11/07/2016 Blood Pressure 1: 128/64 Code: 8480-6 BMI: 31.5 Code: 97282-6 Heart Rate 1: 59 bpm Height: 4'11" SpO2: 97% Weight: 156 lbs 08/15/2016 Blood Pressure 1: 110/62 Code: 8480-6 BMI: 31.5 Code: 82018-7 Heart Rate 1: 76 bpm Height: 4'11" SpO2: 97% Weight: 156 lbs 06/07/2016 Blood Pressure 1: 120/80 Code: 8480-6 BMI: 32.9 Code: 91015-9 Heart Rate 1: 63 bpm Height: 4'11" SpO2: 93% Temperature: 36.5 (C) / 97.7 (F) Weight: 163 lbs 03/15/2016 Blood Pressure 1: 90/42 Code: 8480-6 Heart Rate 1: 65 bpm SpO2: 94% 03/14/2016 Blood Pressure 1: 188/110 Code: 8480-6 Heart Rate 1: 68 bpm SpO2: 96% 02/22/2016 Blood Pressure 1: 158/80 Code: 8480-6 BMI: 32.7 Code: 81292-0 Heart Rate 1: 71 bpm Height: 4'11" SpO2: 95% Weight: 162 lbs 12/07/2015 Blood Pressure 1: 140/88 Code: 8480-6 BMI: 32.9 Code: 02728-1 Heart Rate 1: 99 bpm Height: 4'11" SpO2: 94% Temperature: 35.9 (C) / 96.6 (F) Weight: 163 lbs 11/24/2015 Blood Pressure 1: 144/78 Code: 8480-6 BMI: 33.7 Code: 13213-2 Heart Rate 1: 60 bpm Height: 4'11" SpO2: 98% Temperature: 36.6 (C) / 97.9 (F) Weight: 167 lbs 08/27/2015 Blood Pressure 1: 164/82 Code: 8480-6 BMI: 32.3 Code: 88726-3 Heart Rate 1: 60 bpm Height: 4'11" SpO2: 93% Weight: 160 lbs 08/10/2015 Blood Pressure 1: 130/60 Code: 8480-6 BMI: 32.5 Code: 92589-2 Heart Rate 1: 64 bpm Height: 4'11" SpO2: 97% Weight: 161 lbs 07/28/2015 Blood Pressure 1: 124/68 Code: 8480-6 BMI: 32.5 Code: 09110-9 Heart Rate 1: 69 bpm Height: 4'11" SpO2: 97% Weight: 161 lbs 06/11/2015 Blood Pressure 1: 148/80 Code: 8480-6 BMI: 32.9 Code: 54561-1 Heart Rate 1: 70 bpm Height: 4'11" SpO2: 94% Weight: 163 lbs 03/19/2015 Blood Pressure 1: 150/102 Code: 8480-6 Blood Pressure 2: 152/92 Code: 8480-6 BMI: 32.5 Code: 03194-4 Heart Rate 1: 71 bpm Height: 4'11" SpO2: 96% Weight: 161 lbs 01/07/2015 Blood Pressure 1: 126/84 Code: 8480-6 Heart Rate 1: 80 bpm Height: 4'11" 09/23/2014 Blood Pressure 1: 112/72 Code: 8480-6 BMI: 33.9 Code: 38601-5 Heart Rate 1: 72 bpm Height: 4'11" Weight: 168 lbs 08/05/2014 Blood Pressure 1: 140/86 Code: 8480-6 BMI: 33.3 Code: 82068-1 Height: 4'11" Weight: 165 lbs 06/23/2014 Blood Pressure 1: 132/70 Code: 8480-6 BMI: 32.9 Code: 77658-5 Heart Rate 1: 58 bpm Height: 4'11" Temperature: 36.0 (C) / 96.8 (F) Weight: 163 lbs 06/05/2014 Blood Pressure 1: 121/85 Code: 8480-6 BMI: 34.3 Code: 38838-2 Height: 4'11" Weight: 170 lbs 04/03/2014 Blood Pressure 1: 128/80 Code: 8480-6 Heart Rate 1: 88 bpm Weight: 167 lbs 03/07/2014 Blood Pressure 1: 122/82 Code: 8480-6 BMI: 33.9 Code: 88943-1 Heart Rate 1: 68 bpm Height: 4'11" Weight: 168 lbs 11/21/2013 Blood Pressure 1: 100/58 Code: 8480-6 BMI: 33.7 Code: 31337-8 Heart Rate 1: 64 bpm Height: 4'11" Weight: 167 lbs 09/24/2013 Blood Pressure 1: 148/88 Code: 8480-6 Heart Rate 1: 68 bpm Weight: 09/19/2013 Blood Pressure 1: 120/80 Code: 8480-6 BMI: 33.9 Code: 75814-1 Heart Rate 1: 80 bpm Height: 4'11" Temperature: 36.9 (C) / 98.5 (F) Weight: 168 lbs 08/05/2013 Blood Pressure 1: 128/80 Code: 8480-6 BMI: 34.3 Code: 25926-1 Heart Rate 1: 64 bpm Height: 4'11" Temperature: 36.2 (C) / 97.2 (F) Weight: 170 lbs 07/10/2013 Blood Pressure 1: 120/84 Code: 8480-6 BMI: 36.0 Code: 77572-1 Heart Rate 1: 90 bpm Height: 4'11" SpO2: 97% Temperature: 36.8 (C) / 98.2 (F) Weight: 178 lbs 06/03/2013 Blood Pressure 1: 136/94 Code: 8480-6 BMI: 34.7 Code: 94426-3 Heart Rate 1: 68 bpm Height: 4'11" Temperature: 36.7 (C) / 98.0 (F) Weight: 172 lbs 05/13/2013 Blood Pressure 1: 132/90 Code: 8480-6 Heart Rate 1: 68 bpm 05/07/2013 Blood Pressure 1: 168/100 Code: 8480-6 BMI: 34.3 Code: 77631-5 Heart Rate 1: 76 bpm Height: 4'11" Weight: 170 lbs 12/03/2012 Blood Pressure 1: 142/78 Code: 8480-6 BMI: 33.5 Code: 06356-6 Heart Rate 1: 76 bpm Height: 4'11" Weight: 166 lbs 09/24/2012 Blood Pressure 1: 116/70 Code: 8480-6 Heart Rate 1: 68 bpm Respiratory Rate: 16 bpm Temperature: 36.9 (C) / 98.4 (F) Weight: 162 lbs 09/10/2012 Blood Pressure 1: 116/80 Code: 8480-6 BMI: 33.7 Code: 44894-1 Heart Rate 1: 76 bpm Height: 4'11" Weight: 168 lbs 08/08/2012 Blood Pressure 1: 112/76 Code: 8480-6 Heart Rate 1: 72 bpm Weight: 167 lbs 02/15/2012 Blood Pressure 1: 110/72 Code: 8480-6 Heart Rate 1: 72 bpm Respiratory Rate: 20 bpm Weight: 172 lbs 11/10/2011 Blood Pressure 1: 124/88 Code: 8480-6 Heart Rate 1: 68 bpm Weight: 166 lbs 08/01/2011 Blood Pressure 1: 124/78 Code: 8480-6 Heart Rate 1: 72 bpm Respiratory Rate: 16 bpm Weight: 163 lbs 07/14/2011 Blood Pressure 1: 148/89 Code: 8480-6 Heart Rate 1: 69 bpm SpO2: 98% Temperature: 36.8 (C) / 98.2 (F) Weight: 159 lbs 05/23/2011 Blood Pressure 1: 149/85 Code: 8480-6 BMI: 32.9 Code: 92030-1 Heart Rate 1: 79 bpm Height: 4'11" Weight: 164 lbs 05/03/2011 Blood Pressure 1: 122/79 Code: 8480-6 BMI: 30.8 Code: 12704-6 Heart Rate 1: 72 bpm Height: 5'1" Weight: 163 lbs 04/25/2011 Blood Pressure 1: 137/84 Code: 8480-6 BMI: 31.0 Code: 08160-0 Heart Rate 1: 63 bpm Height: 5'1" Respiratory Rate: 20 bpm Weight: 164 lbs Functional Status No Functional Status data History of Present Illness Symptom Name Status Result Effective Date Notes Onset and Resolution sudden in onset 02/25/2019 None Onset of Symptom 1 days ago 02/25/2019 None Location left arm 02/25/2019 None Quality enlarging 02/25/2019 None Quality scabbed 02/25/2019 None Severity mild 02/25/2019 None Frequency of Episodes decreasing 02/25/2019 None Significant Medical Conditions infection 02/25/2019 None Triggers no known associated factors 02/25/2019 None Onset and Resolution sudden in onset 02/20/2019 None Onset of Symptom 1 days ago 02/20/2019 None Quality enlarging 02/20/2019 None Quality scabbed 02/20/2019 None Location left arm 02/20/2019 None Quality intermittent 01/29/2019 None Quality loose 01/29/2019 None Onset of Symptom 1 weeks ago 01/29/2019 None Limitation on Activities does not limit activities 01/29/2019 None Pertinent Findings Denies fever 01/29/2019 None Location in the [facility] 01/29/2019 None Quality Denies intermittent 01/29/2019 None Onset of Symptom 1 weeks ago 01/29/2019 None Pertinent Findings Denies lightheadedness 01/29/2019 None Pertinent Findings Denies melena 01/29/2019 None Quality chronic 11/13/2018 None Quality primary hypertension 11/13/2018 None Quality worsening 11/13/2018 None Onset and Resolution ongoing 11/13/2018 None Onset of Symptom during adulthood 11/13/2018 None Alleviating Factors medication 11/13/2018 None Pertinent Findings dizziness 11/13/2018 None Pertinent Findings dyspnea 11/13/2018 "always has" Blood Pressure Values pt checking blood pressure - see scanned document 11/13/2018 -She brought her BP monitor with readings on it Pertinent Findings decreased energy 11/13/2018 None Quality primary hypertension 10/30/2018 None Onset and Resolution ongoing 10/30/2018 None Onset of Symptom during adulthood 10/30/2018 None Alleviating Factors medication 10/30/2018 None Blood Pressure Values patient checking blood pressure at home - did not bring in readings 10/30/2018 None Pertinent Findings Denies dizziness 10/30/2018 None Pertinent Findings dyspnea 10/30/2018 "always has" Quality chronic 10/30/2018 None Quality worsening 10/30/2018 None Location in the left eye 10/08/2018 None Location in the right eye 10/08/2018 None Quality intermittent 10/08/2018 None Onset of Symptom 3 days ago 10/08/2018 None Frequency of Episodes daily 10/08/2018 None Pertinent Findings use of eye drops 10/08/2018 None Pertinent Findings eyelid erythema 10/08/2018 None Significant Medical Conditions allergies 10/08/2018 None Triggers no known associated factors 10/08/2018 None hypertension Quality intermittent 07/16/2018 None hypertension Onset and Resolution sudden in onset 07/16/2018 None hypertension Onset of Symptom 1 weeks ago 07/16/2018 None nasal discharge Location in both nares 07/10/2018 None nasal discharge Quality acute 07/10/2018 None nasal discharge Quality clear 07/10/2018 None nasal discharge Onset and Resolution ongoing 07/10/2018 None nasal discharge Onset of Symptom 1+ months ago 07/10/2018 None nasal discharge Pertinent Findings Denies cough 07/10/2018 -Has resolved urinary frequency Quality acute 07/10/2018 None urinary frequency Onset and Resolution sudden in onset 07/10/2018 None urinary frequency Onset of Symptom 1+ weeks ago 07/10/2018 None urinary frequency Pertinent Findings urinary urgency 07/10/2018 None sinus congestion Onset and Resolution ongoing 05/28/2018 None sinus congestion Onset of Symptom 2 weeks ago 05/28/2018 None sinus congestion Severity mild 05/28/2018 None sinus congestion Frequency of Episodes daily 05/28/2018 None sinus congestion Timing of Episodes all day long 05/28/2018 None sinus congestion Quality intermittent 05/28/2018 None sinus congestion Pertinent Findings cough 05/28/2018 None sinus congestion Pertinent Findings decreased energy level 05/28/2018 None sinus congestion Pertinent Findings facial pain 05/28/2018 None sinus congestion Pertinent Findings Denies fever 05/28/2018 None sores Location-Extremities on both legs 02/08/2018 None sores Quality acute 02/08/2018 None sores Pertinent Findings Denies fever 02/08/2018 None sores Location-Extremities on the left lower leg 02/07/2018 None sores Location-Extremities on the right lower leg 02/07/2018 None sores Quality acute 02/07/2018 None sores Color erythematous 02/07/2018 None sores Onset and Resolution sudden in onset 02/07/2018 None sores Onset of Symptom 3 days ago 02/07/2018 None sores Pertinent Findings pain 02/07/2018 None sores Pertinent Findings tenderness 02/07/2018 None sores Pertinent Findings Denies fever 02/07/2018 None chest congestion Quality acute 01/19/2018 None chest congestion Onset and Resolution sudden in onset 01/19/2018 None chest congestion Onset of Symptom _ days ago 01/19/2018 None chest congestion Severity mild 01/19/2018 None chest congestion Triggers ill contacts 01/19/2018 grandkiian have strep chest congestion Pertinent Findings cough 01/19/2018 None chest congestion Pertinent Findings decreased energy 01/19/2018 None chest congestion Pertinent Findings Denies fever 01/19/2018 None chest congestion Pertinent Findings nasal congestion 01/19/2018 None chest congestion Pertinent Findings sinus congestion 01/19/2018 None chest congestion Pertinent Findings sputum production 01/19/2018 None arthralgia(s) Location diffusely 01/19/2018 None arthralgia(s) Quality aching 01/19/2018 None arthralgia(s) Onset and Resolution sudden in onset 01/19/2018 None arthralgia(s) Onset of Symptom _ weeks ago 01/19/2018 None arthralgia(s) Limitation on Activities does not limit activities 01/19/2018 None arthralgia(s) Triggers no known associated factors 01/19/2018 None arthralgia(s) Pertinent Findings Denies limited motion of joint 01/19/2018 None arthralgia(s) Pertinent Findings Denies pain with motion 01/19/2018 None arthralgia(s) Pertinent Findings Denies stiffness 01/19/2018 None arthralgia(s) Pertinent Findings Denies swelling 01/19/2018 None arthralgia(s) Pertinent Findings upper respiratory infection 01/19/2018 None arthralgia(s) Pertinent Findings weakness 01/19/2018 None Annual Medicare Wellness Exam Alcohol Use does not drink any alcohol 11/23/2017 None Annual Medicare Wellness Exam Aspirin Use no 11/23/2017 None Annual Medicare Wellness Exam Blood Glucose (self reported) don't know 11/23/2017 None Annual Medicare Wellness Exam Blood Pressure (self reported) borderline (120/80 - 139/89) 11/23/2017 None Annual Medicare Wellness Exam Cholesterol (self reported) desireable (below 200) 11/23/2017 None Annual Medicare Wellness Exam Depression (last 6 months) some of the time 11/23/2017 None Annual Medicare Wellness Exam Depression or Hopelessness almost never 11/23/2017 None Annual Medicare Wellness Exam Describe Your Health fair 11/23/2017 None Annual Medicare Wellness Exam Exercise Habits does not exercise 11/23/2017 None Annual Medicare Wellness Exam Handling Stress usually nilay effectively 11/23/2017 None Annual Medicare Wellness Exam Hemaglobin A-1C (self reported) don't know 11/23/2017 None Annual Medicare Wellness Exam Hours of Sleep 7 11/23/2017 None Annual Medicare Wellness Exam Interaction with Friends yes 11/23/2017 None Annual Medicare Wellness Exam Interests & Pleasure most of the time 11/23/2017 None Annual Medicare Wellness Exam Life Satisfaction very satisfied 11/23/2017 None Annual Medicare Wellness Exam Motor Vehicle Safety always fastens seat belt: y 11/23/2017 None Annual Medicare Wellness Exam Motor Vehicle Safety drives after drinking: n 11/23/2017 None Annual Medicare Wellness Exam Motor Vehicle Safety rides with someone who has been drinking: n 11/23/2017 None Annual Medicare Wellness Exam Nutrition servings of fried food / high fat foods per day: 0 11/23/2017 None Annual Medicare Wellness Exam Nutrition servings of high fiber / whole grain per day: 1 11/23/2017 None Annual Medicare Wellness Exam Nutrition servings of vegetables / fruit per day: 4 11/23/2017 None Annual Medicare Wellness Exam Smoking and Tobacco Use non smoker 11/23/2017 None Annual Medicare Wellness Exam Social & Emotional Support always 11/23/2017 None Annual Medicare Wellness Exam Stress some of the time 11/23/2017 None Annual Medicare Wellness Exam Sun Exposure protects skin when outdoors: y 11/23/2017 None abdominal pain Location diffusely 09/12/2017 None abdominal pain Quality acute 09/12/2017 None abdominal pain Onset and Resolution sudden in onset 09/12/2017 None abdominal pain Onset of Symptom 2 days ago 09/12/2017 None abdominal pain Limitation on Activities moderately limits activities 09/12/2017 None abdominal pain Pertinent Findings Denies dyspnea 09/12/2017 None diarrhea Quality acute 09/12/2017 None diarrhea Quality loose 09/12/2017 None diarrhea Onset and Resolution sudden in onset 09/12/2017 None diarrhea Onset of Symptom 2 days ago 09/12/2017 None diarrhea Pertinent Findings Denies fever 09/12/2017 None sinus congestion Location maxillary sinuses 09/12/2017 None sinus congestion Quality acute 09/12/2017 None sinus congestion Onset and Resolution sudden in onset 09/12/2017 None sinus congestion Onset of Symptom 2 days ago 09/12/2017 None sinus congestion Pertinent Findings Denies fever 09/12/2017 None chest congestion Quality constant 07/25/2017 None chest congestion Quality thick secretions 07/25/2017 None chest congestion Onset and Resolution sudden in onset 07/25/2017 None chest congestion Onset of Symptom 3 days ago 07/25/2017 None chest congestion Frequency of Episodes daily 07/25/2017 None chest congestion Pertinent Findings cough 07/25/2017 None chest congestion Pertinent Findings decreased energy 07/25/2017 None chest congestion Pertinent Findings loss of appetite 07/25/2017 None chest congestion Pertinent Findings respiratory distress 07/25/2017 None chest congestion Pertinent Findings nasal congestion 07/25/2017 None chest congestion Pertinent Findings sinus congestion 07/25/2017 None chest congestion Pertinent Findings sputum production 07/25/2017 None cough Quality acute 06/27/2017 None cough Quality intermittent 06/27/2017 None cough Quality productive 06/27/2017 None cough Onset and Resolution sudden in onset 06/27/2017 None cough Pertinent Findings sputum production 06/27/2017 yellowish cough Onset of Symptom 3 days ago 06/27/2017 None cough Pertinent Findings Denies fever 06/27/2017 None sinus congestion Onset and Resolution ongoing 06/27/2017 None sinus congestion Onset of Symptom 2 months ago 06/27/2017 None sinus congestion Frequency of Episodes daily 06/27/2017 None sinus congestion Quality pain 06/27/2017 None sinus congestion Quality fullness 06/27/2017 None sinus congestion Pertinent Findings cough 06/27/2017 None sinus congestion Pertinent Findings Denies fever 06/27/2017 None sinus congestion Onset and Resolution sudden in onset 05/08/2017 None sinus congestion Onset of Symptom 1.5 weeks ago 05/08/2017 None sinus congestion Severity moderate 05/08/2017 None sinus congestion Frequency of Episodes increasing 05/08/2017 None sinus congestion Timing of Episodes all day long 05/08/2017 None sinus congestion Significant Medical Conditions allergic rhinitis 05/08/2017 None sinus congestion Triggers allergens 05/08/2017 None sinus congestion Alleviating Factors medication 05/08/2017 None sinus congestion Exacerbating Factors allergen exposure 05/08/2017 None sinus congestion Pertinent Findings decreased energy level 05/08/2017 None sinus congestion Pertinent Findings facial pain 05/08/2017 None sinus congestion Pertinent Findings Denies fever 05/08/2017 None sinus congestion Pertinent Findings hoarseness 05/08/2017 None sinus congestion Location on both sides 05/08/2017 None sinus congestion Quality acute 05/08/2017 None sinus congestion Onset and Resolution sudden in onset 03/14/2017 None sinus congestion Onset of Symptom 1.5 weeks ago 03/14/2017 None sinus congestion Severity moderate 03/14/2017 None sinus congestion Pertinent Findings decreased energy level 03/14/2017 None sinus congestion Pertinent Findings facial pain 03/14/2017 None sinus congestion Pertinent Findings Denies fever 03/14/2017 None sinus congestion Pertinent Findings hoarseness 03/14/2017 None sinus congestion Frequency of Episodes increasing 03/14/2017 None sinus congestion Timing of Episodes all day long 03/14/2017 None sinus congestion Significant Medical Conditions allergic rhinitis 03/14/2017 None sinus congestion Triggers allergens 03/14/2017 None sinus congestion Alleviating Factors medication 03/14/2017 None sinus congestion Exacerbating Factors allergen exposure 03/14/2017 None sinus congestion Quality acute 03/14/2017 None sinus congestion Location on both sides 03/14/2017 None abdominal pain Location in the LUQ 02/20/2017 None abdominal pain Location in the RLQ 02/20/2017 None abdominal pain Quality worsening 02/20/2017 None abdominal pain Onset and Resolution ongoing 02/20/2017 None abdominal pain Limitation on Activities moderately limits activities 02/20/2017 None abdominal pain Exacerbating Factors eating 02/20/2017 None abdominal pain Pertinent Findings fever 02/20/2017 None abdominal pain Pertinent Findings Denies dyspnea 02/20/2017 None abdominal pain Pertinent Findings dyspepsia 02/20/2017 None abdominal pain Pertinent Findings nausea 02/20/2017 None abdominal pain Pertinent Findings Denies melena 02/20/2017 None abdominal pain Pertinent Findings vomiting 02/20/2017 None hypertension Quality primary hypertension 02/06/2017 None hypertension Onset and Resolution ongoing 02/06/2017 None hypertension Onset of Symptom during adulthood 02/06/2017 None hypertension Alleviating Factors medication 02/06/2017 None depression Alleviating Factors medication 02/06/2017 None hypertension Blood Pressure Values patient checking blood pressure at home - did not bring in readings 02/06/2017 -Checks occasionally hypertension Pertinent Findings Denies dizziness 02/06/2017 None hypertension Pertinent Findings Denies dyspnea 02/06/2017 None hypertension Pertinent Findings Denies edema 02/06/2017 None depression Onset and Resolution ongoing 02/06/2017 None abdominal pain Location in the LLQ 02/06/2017 None abdominal pain Location in the LUQ 02/06/2017 None abdominal pain Quality acute 02/06/2017 None abdominal pain Quality intermittent 02/06/2017 None abdominal pain Onset of Symptom 3 weeks ago 02/06/2017 None abdominal pain Triggers no known associated factors 02/06/2017 None abnormal bleeding and bruising Location on the right leg 02/06/2017 None abnormal bleeding and bruising Location on the left leg 02/06/2017 None abnormal bleeding and bruising Location on the left arm 02/06/2017 (hand) abnormal bleeding and bruising Quality ecchymotic 02/06/2017 None abnormal bleeding and bruising Onset and Resolution ongoing 02/06/2017 None abnormal bleeding and bruising Onset of Symptom 2 months ago 02/06/2017 None skin lesion Location Nose 02/06/2017 None skin lesion Onset and Resolution ongoing 12/05/2016 on the face skin lesion Quality raised 12/05/2016 None skin lesion Quality red 12/05/2016 None skin lesion Severity mild 12/05/2016 None skin lesion Triggers no known associated factors 12/05/2016 None sinusitis Location diffusely 11/28/2016 None sinusitis Quality acute 11/28/2016 None sinusitis Onset and Resolution sudden in onset 11/28/2016 None sinusitis Onset of Symptom 3 days ago 11/28/2016 None sinusitis Severity moderate 11/28/2016 None sinusitis Pertinent Findings cough 11/28/2016 None sinusitis Pertinent Findings decreased energy level 11/28/2016 None sinusitis Pertinent Findings facial pain 11/28/2016 None sinusitis Pertinent Findings Denies fever 11/28/2016 None sinusitis Pertinent Findings hoarseness 11/28/2016 None Annual Medicare Wellness Exam Alcohol Use does not drink any alcohol 11/07/2016 None Annual Medicare Wellness Exam Aspirin Use yes 11/07/2016 None Annual Medicare Wellness Exam Blood Glucose (self reported) don't know 11/07/2016 None Annual Medicare Wellness Exam Blood Pressure (self reported) borderline (120/80 - 139/89) 11/07/2016 None Annual Medicare Wellness Exam Cholesterol (self reported) don't know 11/07/2016 None Annual Medicare Wellness Exam Depression (last 6 months) almost all of the time 11/07/2016 None Annual Medicare Wellness Exam Depression or Hopelessness almost never 11/07/2016 None Annual Medicare Wellness Exam Describe Your Health fair 11/07/2016 None Annual Medicare Wellness Exam Exercise Habits exercises 7 days per week 11/07/2016 None Annual Medicare Wellness Exam Exercise Habits exercises 60 minutes per day 11/07/2016 None Annual Medicare Wellness Exam Handling Stress usually nilay effectively 11/07/2016 None Annual Medicare Wellness Exam Hemaglobin A-1C (self reported) don't know 11/07/2016 None Annual Medicare Wellness Exam Hours of Sleep 8 11/07/2016 None Annual Medicare Wellness Exam Interaction with Friends yes 11/07/2016 None Annual Medicare Wellness Exam Interests & Pleasure most of the time 11/07/2016 None Annual Medicare Wellness Exam Life Satisfaction very satisfied 11/07/2016 None Annual Medicare Wellness Exam Motor Vehicle Safety always fastens seat belt: y 11/07/2016 None Annual Medicare Wellness Exam Motor Vehicle Safety drives after drinking: n 11/07/2016 None Annual Medicare Wellness Exam Motor Vehicle Safety rides with someone who has been drinking: n 11/07/2016 None Annual Medicare Wellness Exam Nutrition servings of fried food / high fat foods per day: 0 11/07/2016 None Annual Medicare Wellness Exam Nutrition servings of high fiber / whole grain per day: 1 11/07/2016 None Annual Medicare Wellness Exam Nutrition servings of vegetables / fruit per day: 1 11/07/2016 None Annual Medicare Wellness Exam Smoking and Tobacco Use non smoker 11/07/2016 None Annual Medicare Wellness Exam Social & Emotional Support always 11/07/2016 None Annual Medicare Wellness Exam Stress most of the time 11/07/2016 None Annual Medicare Wellness Exam Sun Exposure protects skin when outdoors: n 11/07/2016 None sinus congestion Location on both sides 08/15/2016 None sinus congestion Quality fullness 08/15/2016 None sinus congestion Quality pain 08/15/2016 None sinus congestion Quality pressure 08/15/2016 None sinus congestion Onset and Resolution sudden in onset 08/15/2016 None sinus congestion Onset of Symptom 3 weeks ago 08/15/2016 None sinus congestion Frequency of Episodes daily 08/15/2016 None sinus congestion Pertinent Findings cough 08/15/2016 None sinus congestion Pertinent Findings hoarseness 08/15/2016 None sinus congestion Pertinent Findings fever 08/15/2016 None urinary urgency Quality constant 08/15/2016 None urinary urgency Onset and Resolution sudden in onset 08/15/2016 None urinary urgency Onset of Symptom 1 weeks ago 08/15/2016 None urinary urgency Frequency of Episodes daily 08/15/2016 None urinary urgency Pertinent Findings bladder pain 08/15/2016 None sinus congestion Onset and Resolution sudden in onset 06/07/2016 None sinus congestion Onset of Symptom 1 weeks ago 06/07/2016 None sinus congestion Frequency of Episodes daily 06/07/2016 None sinus congestion Pertinent Findings Denies dysphagia 06/07/2016 None sinus congestion Pertinent Findings cough 06/07/2016 None sinus congestion Pertinent Findings decreased energy level 06/07/2016 None sinus congestion Pertinent Findings Denies fever 06/07/2016 None back pain Location lumbar-sacral spine 06/07/2016 None back pain Quality intermittent 06/07/2016 None back pain Onset and Resolution ongoing 06/07/2016 None back pain Pertinent Findings Denies extremity numbness 06/07/2016 None back pain Pertinent Findings Denies extremity weakness 06/07/2016 None hypertension Quality acute 03/14/2016 None hypertension Onset and Resolution ongoing 03/14/2016 None hypertension Quality chronic 03/14/2016 None hypertension Onset of Symptom during adulthood 03/14/2016 None hypertension Blood Pressure Values patient checking blood pressure at home - did not bring in readings 03/14/2016 None hypertension Severity not consistently severe symptoms, the symptoms fluctuate from no symptoms to anxiety and headaches 03/14/2016 None hypertension Frequency of Episodes unchanged 03/14/2016 None hypertension Significant Family History heart disease 03/14/2016 None hypertension Triggers no known associated factors 03/14/2016 None hypertension Alleviating Factors medication 03/14/2016 None hypertension Pertinent Findings anxiety 03/14/2016 None hypertension Pertinent Findings Denies dizziness 03/14/2016 None hypertension Pertinent Findings Denies edema 03/14/2016 None skin lesion Onset and Resolution sudden in onset 02/22/2016 None skin lesion Onset of Symptom 1 weeks ago 02/22/2016 None skin lesion Quality scabbed 02/22/2016 None skin lesion Quality firm 02/22/2016 None skin lesion Severity mild 02/22/2016 None skin lesion Significant Medical Conditions infection 02/22/2016 None skin lesion Pertinent Findings Denies cough 02/22/2016 None skin lesion Pertinent Findings Denies fever 02/22/2016 None skin lesion Location left lower leg 02/22/2016 None sinus congestion Onset and Resolution sudden in onset 12/07/2015 None sinus congestion Onset of Symptom 4 days ago 12/07/2015 None sinus congestion Pertinent Findings cough 12/07/2015 None sinus congestion Pertinent Findings facial pain 12/07/2015 None sinus congestion Pertinent Findings Denies vomiting 12/07/2015 None sinus congestion Severity moderate 12/07/2015 None sinus congestion Frequency of Episodes increasing 12/07/2015 None sinus congestion Significant Medical Conditions allergic rhinitis 12/07/2015 None sinus congestion Significant Medications decongestants 12/07/2015 None sinus congestion Triggers allergens 12/07/2015 None sinus congestion Location on both sides 12/07/2015 None sinus congestion Quality acute 12/07/2015 None sinus congestion Pertinent Findings decreased energy level 12/07/2015 None mole check Location-Major on the upper body 11/24/2015 None mole check Location-Trunk on the right mid chest 11/24/2015 -under right breast sinus pain Quality acute 11/24/2015 None sinus pain Quality pain 11/24/2015 None sinus pain Onset and Resolution sudden in onset 11/24/2015 None sinus pain Onset of Symptom 3 days ago 11/24/2015 None sinus pain Pertinent Findings Denies fever 11/24/2015 None sinus pain Pertinent Findings facial pain 11/24/2015 None medication follow up Location oral intake 11/24/2015 None medication follow up Additional Comments medication use 11/24/2015 None neck pain Location in the cervical spine 11/24/2015 None neck pain Onset and Resolution ongoing 11/24/2015 None neck pain Quality worsening 11/24/2015 None neck pain Onset of Symptom during adulthood 11/24/2015 None neck pain Radiating the back 11/24/2015 None skin lesion Location on the left cheek 11/24/2015 None skin lesion Location on the right cheek 11/24/2015 None skin lesion Onset and Resolution ongoing 11/24/2015 None skin lesion Onset and Resolution gradual in onset 11/24/2015 None headache Location diffusely 08/27/2015 None headache Quality constant 08/27/2015 None headache Quality pressure 08/27/2015 None headache Onset and Resolution sudden in onset 08/27/2015 None headache Onset of Symptom 5 days ago 08/27/2015 None headache Limitation on Activities is incapacitating 08/27/2015 None headache Frequency of Episodes daily 08/27/2015 None headache Pertinent Findings nausea 08/27/2015 None cough Location in the throat 08/10/2015 None cough Quality hacking 08/10/2015 None cough Quality productive 08/10/2015 None cough Onset and Resolution sudden in onset 08/10/2015 None cough Onset of Symptom 3 days ago 08/10/2015 None cough Limitation on Activities does not limit activities 08/10/2015 None cough Frequency of Episodes daily 08/10/2015 None cough Pertinent Findings chest discomfort 08/10/2015 None cough Pertinent Findings hoarseness 08/10/2015 None sinus congestion Location on both sides 08/10/2015 None sinus congestion Quality pressure 08/10/2015 None sinus congestion Quality fullness 08/10/2015 None sinus congestion Onset and Resolution sudden in onset 08/10/2015 None sinus congestion Onset of Symptom 3 days ago 08/10/2015 None sinus congestion Frequency of Episodes daily 08/10/2015 None sinus congestion Pertinent Findings cough 08/10/2015 None sinus congestion Pertinent Findings facial pain 08/10/2015 None sore throat Location on both sides 08/10/2015 None sore throat Quality dull 08/10/2015 None sore throat Quality scratchy 08/10/2015 None sore throat Onset and Resolution sudden in onset 08/10/2015 None sore throat Onset of Symptom 3 days ago 08/10/2015 None sore throat Limitation on Activities does not limit oral intake 08/10/2015 None sore throat Frequency of Episodes daily 08/10/2015 None sore throat Pertinent Findings cough 08/10/2015 None sore throat Pertinent Findings facial pain 08/10/2015 None sore throat Pertinent Findings nasal congestion 08/10/2015 None sores Location-Extremities on the right hand 07/28/2015 None sores Quality new 07/28/2015 None sores Color erythematous 07/28/2015 None sores Onset and Resolution sudden in onset 07/28/2015 None sores Severity moderate 07/28/2015 None sores Triggers work environment 07/28/2015 None sores Pertinent Findings pain 07/28/2015 None sores Pertinent Findings tenderness 07/28/2015 None sores Pertinent Findings Denies fever 07/28/2015 None rash Location-Trunk on both breasts 06/11/2015 None rash Quality burning 06/11/2015 None rash Quality moist 06/11/2015 None rash Quality painful 06/11/2015 None rash Color red 06/11/2015 None rash Onset and Resolution ongoing 06/11/2015 None rash Onset of Symptom 1 week ago 06/11/2015 None rash Location-Trunk in the left groin area 06/11/2015 None rash Location-Trunk in the right groin area 06/11/2015 None back pain Location Cervical spine 03/19/2015 hx of 2 back surgeries back pain Location lumbar spine 03/19/2015 None back pain Quality chronic 03/19/2015 None back pain Quality worsening 03/19/2015 unchanged back pain Onset and Resolution ongoing 03/19/2015 None back pain Limitation on Activities does not limit activities 03/19/2015 None back pain Frequency of Episodes constant 03/19/2015 None back pain Frequency of Episodes increasing 03/19/2015 None back pain Triggers activity 03/19/2015 None back pain Alleviating Factors medication 03/19/2015 None back pain Initial treatment medication 03/19/2015 None back pain Initial treatment physical therapy 03/19/2015 None back pain Radiating down both legs 03/19/2015 None back pain Severity moderate 03/19/2015 None back pain Pertinent Findings Denies extremity numbness 03/19/2015 None back pain Pertinent Findings limited range of neck motion 03/19/2015 None back pain Pertinent Findings Denies fever 03/19/2015 None back pain Pertinent Findings Denies weakness 03/19/2015 None back pain Pertinent Findings Denies weight loss 03/19/2015 None knee pain Location on the left 03/19/2015 None knee pain Quality sharp pain 03/19/2015 needs replacement surg knee pain Location on the right 03/19/2015 15 years ago had replacement, starting to have pain also knee pain Onset of Symptom 1.5 years ago 03/19/2015 left knee hypertension Onset and Resolution ongoing 03/19/2015 None hypertension Quality chronic 03/19/2015 None hypertension Onset of Symptom during adulthood 03/19/2015 None hypertension Frequency of Episodes unchanged 03/19/2015 None hypertension Triggers stress 03/19/2015 None hypertension Alleviating Factors medication 03/19/2015 None hypertension Pertinent Findings Denies dizziness 03/19/2015 None hypertension Pertinent Findings Denies dyspnea 03/19/2015 None hypertension Pertinent Findings Denies edema 03/19/2015 None hypertension Pertinent Findings Denies confusion 03/19/2015 None knee pain Onset and Resolution gradual in onset 03/19/2015 None knee pain Frequency of Episodes increasing 03/19/2015 None knee pain Limitation on Activities allows weight bearing activity 03/19/2015 None knee pain Severity moderate 03/19/2015 None knee pain Significant Medical Conditions degenerative joint disease 03/19/2015 None knee pain Sports Participation not significant 03/19/2015 None earache Location right ear 01/07/2015 None earache Quality acute 01/07/2015 None earache Onset and Resolution ongoing 01/07/2015 None earache Onset of Symptom 1 weeks ago 01/07/2015 None earache Severity mild 01/07/2015 None eye discharge Location in the left eye 01/07/2015 None eye discharge Location in the right eye 01/07/2015 None eye discharge Quality acute 01/07/2015 None eye discharge Onset and Resolution ongoing 01/07/2015 None eye discharge Severity mild 01/07/2015 None eye discharge Frequency of Episodes increasing 01/07/2015 None eye discharge Significant Medical Conditions allergies 01/07/2015 None sinus congestion Onset and Resolution ongoing 01/07/2015 None sinus congestion Frequency of Episodes increasing 01/07/2015 None sinus congestion Pertinent Findings cough 01/07/2015 None eye discharge Location in the left eye 09/23/2014 None eye discharge Location in the right eye 09/23/2014 None eye discharge Pertinent Findings Denies fever 09/23/2014 None eye discharge Quality acute 09/23/2014 None eye discharge Onset and Resolution ongoing 09/23/2014 None eye discharge Severity mild 09/23/2014 None eye discharge Frequency of Episodes increasing 09/23/2014 None eye discharge Significant Medical Conditions allergies 09/23/2014 None eye discharge Triggers no known associated factors 09/23/2014 None eye discharge Pertinent Findings Denies eye pressure 09/23/2014 None eye discharge Pertinent Findings Denies eye swelling 09/23/2014 None eye discharge Pertinent Findings Denies eye tearing 09/23/2014 None eye discharge Pertinent Findings Denies eyelid erythema 09/23/2014 None eye discharge Pertinent Findings Denies facial pain 09/23/2014 None eye discharge Pertinent Findings Denies URI symptoms 09/23/2014 None eye discharge Pertinent Findings Denies vomiting 09/23/2014 None eye discharge Onset of Symptom 2 days ago 09/23/2014 None laceration of the leg Location on the left 08/05/2014 None laceration of the leg Location on the right 08/05/2014 None laceration of the leg Quality acute 08/05/2014 None laceration of the leg Quality viable skin flap 08/05/2014 None laceration of the leg Onset of Symptom _ hours ago 08/05/2014 None laceration of the leg Limitation on Activities allows weight bearing activity 08/05/2014 None laceration of the leg Severity mild 08/05/2014 None laceration of the leg Pertinent Findings Denies fever 08/05/2014 None laceration of the leg Pertinent Findings Denies warmth 08/05/2014 None laceration of the leg Pertinent Findings Denies redness 08/05/2014 None laceration of the leg Pertinent Findings Denies pain with movement 08/05/2014 None cough Location in the throat 06/23/2014 None cough Quality productive 06/23/2014 None cough Onset of Symptom 4 days ago 06/23/2014 None cough Frequency of Episodes daily 06/23/2014 None cough Triggers post nasal drip 06/23/2014 None cough Pertinent Findings Denies fever 06/23/2014 None cough Pertinent Findings nasal congestion 06/23/2014 None sinus congestion Quality constant 06/23/2014 None sinus congestion Onset of Symptom 4 days ago 06/23/2014 None sinus congestion Frequency of Episodes daily 06/23/2014 None sinus congestion Pertinent Findings cough 06/23/2014 None sinus congestion Pertinent Findings Denies fever 06/23/2014 None nasal discharge Location in both nares 06/23/2014 None nasal discharge Quality clear 06/23/2014 None nasal discharge Pertinent Findings cough 06/23/2014 None nasal discharge Pertinent Findings Denies fever 06/23/2014 None cough Limitation on Activities does not limit activities 06/23/2014 None sinus congestion Severity mild 06/23/2014 None sinus congestion Timing of Episodes all day long 06/23/2014 None sinus congestion Significant Medical Conditions allergic rhinitis 06/23/2014 None neck pain Location Cervical spine 06/05/2014 None neck pain Quality stabbing 06/05/2014 None neck pain Quality worsening 06/05/2014 None neck pain Onset and Resolution ongoing 06/05/2014 None neck pain Limitation on Activities does not limit activities 06/05/2014 None neck pain Frequency of Episodes increasing 06/05/2014 None neck pain Triggers activity 06/05/2014 None neck pain Exacerbating Factors turning head to the left 06/05/2014 None neck pain Exacerbating Factors turning head to the right 06/05/2014 None neck pain Radiating does not radiate 06/05/2014 None neck pain Severity mild 06/05/2014 None neck pain Sports Participation not significant 06/05/2014 None headache Onset and Resolution gradual in onset 04/03/2014 None headache Quality dull 04/03/2014 None headache Onset and Resolution worse during the day 04/03/2014 None headache Location in the frontal area 04/03/2014 None headache Location on the left 04/03/2014 above the left eye headache Onset of Symptom 1 weeks ago 04/03/2014 None headache Alleviating Factors rest 04/03/2014 None headache Pertinent Findings Denies awakens from sleep 04/03/2014 None headache Pertinent Findings Denies confusion 04/03/2014 None headache Pertinent Findings Denies dizziness 04/03/2014 None headache Pertinent Findings Denies facial pain 04/03/2014 None headache Pertinent Findings Denies lightheadedness 04/03/2014 None headache Pertinent Findings Denies numbness 04/03/2014 None headache Pertinent Findings Denies sleep disturbance 04/03/2014 None headache Pertinent Findings Denies stiff neck 04/03/2014 None headache Pertinent Findings Denies vomiting 04/03/2014 None back pain Location lumbar-sacral spine 04/03/2014 None back pain Quality chronic 04/03/2014 "it's bearable now", getting better each day. States it "back to the same as it always is" back pain Limitation on Activities does not limit activities 04/03/2014 None back pain Triggers lifting 04/03/2014 None back pain Alleviating Factors heat 04/03/2014 None back pain Alleviating Factors rest 04/03/2014 None back pain Pertinent Findings Denies extremity numbness 04/03/2014 None back pain Pertinent Findings Denies morning stiffness 04/03/2014 None back pain Pertinent Findings Denies sleep disturbance 04/03/2014 None back pain Onset and Resolution ongoing 04/03/2014 None back pain Mechanism of injury fall from height 04/03/2014 None rash Location-Major in a generalized area 03/07/2014 under breast and in groin rash Color red 03/07/2014 None rash Onset of Symptom 1 days ago 03/07/2014 None rash Pertinent Findings itching 03/07/2014 None rash Pertinent Findings tenderness 03/07/2014 None rash Pertinent Findings Denies fever 03/07/2014 None rash Quality acute 03/07/2014 None rash Prior Treatments previously untreated 03/07/2014 None rash Triggers no known triggers 03/07/2014 None rash Alleviating Factors no alleviating factors 03/07/2014 None back pain Location Cervical spine 11/21/2013 None back pain Location lumbar spine 11/21/2013 None back pain Quality chronic 11/21/2013 None back pain Quality worsening 11/21/2013 wants to increase her duragesic and referral to dr ortiz for epidural knee pain Location on the left 11/21/2013 None knee pain Quality sharp pain 11/21/2013 needs replacement surg back pain Onset and Resolution ongoing 11/21/2013 None back pain Limitation on Activities does not limit activities 11/21/2013 None back pain Frequency of Episodes constant 11/21/2013 None back pain Frequency of Episodes increasing 11/21/2013 None back pain Triggers activity 11/21/2013 None back pain Alleviating Factors medication 11/21/2013 None back pain Initial treatment physical therapy 11/21/2013 None back pain Initial treatment medication 11/21/2013 None back pain Mechanism of injury unknown 11/21/2013 None back pain Radiating down both legs 11/21/2013 None back pain Severity moderate 11/21/2013 None back pain Sports Participation not significant 11/21/2013 None back pain Pertinent Findings Denies fever 11/21/2013 None back pain Pertinent Findings Denies weakness 11/21/2013 None back pain Pertinent Findings Denies weight loss 11/21/2013 None back pain Pertinent Findings Denies extremity numbness 11/21/2013 None back pain Pertinent Findings limited range of neck motion 11/21/2013 None cellulitis Onset and Resolution ongoing 09/24/2013 None cellulitis Location on the right hand 09/24/2013 middle finger sinus pain Quality acute 09/24/2013 None sinus pain Onset and Resolution ongoing 09/24/2013 states insomnia Quality chronic 09/24/2013 None insomnia Onset and Resolution ongoing 09/24/2013 trazadone not working. ambien cause dreams depression Quality chronic 09/24/2013 None depression Quality worsening 09/24/2013 states lot of family problems. wants depression medicine which also helps anxiety cellulitis Onset of Symptom _ weeks ago 09/24/2013 None cellulitis Limitation on Activities does not limit activities 09/24/2013 None finger pain Location in the right middle finger 09/24/2013 None finger pain Pertinent Findings pain with movement 09/24/2013 None finger pain Pertinent Findings redness 09/24/2013 None finger pain Pertinent Findings stiffness 09/24/2013 None finger pain Pertinent Findings warmth 09/24/2013 None depression Onset and Resolution ongoing 09/24/2013 None depression Onset of Symptom during adulthood 09/24/2013 None depression Limitation on Activities moderately limits activities 09/24/2013 None depression Frequency of Episodes increasing 09/24/2013 None depression Significant Medical Conditions anxiety disorder 09/24/2013 None depression Triggers stress 09/24/2013 None depression Pertinent Findings anxiety 09/24/2013 None depression Pertinent Findings Denies lethargy 09/24/2013 None depression Pertinent Findings Denies self harm 09/24/2013 None depression Pertinent Findings sleep disturbance 09/24/2013 None depression Pertinent Findings Denies self- harm 09/24/2013 None depression Pertinent Findings Denies withdrawn 09/24/2013 None depression Pertinent Findings Denies weight loss 09/24/2013 None depression Pertinent Findings Denies suicide attempt/plan 09/24/2013 None finger pain Location in the right middle finger 09/19/2013 None finger pain Onset of Symptom 3 days ago 09/19/2013 None finger pain Pertinent Findings warmth 09/19/2013 None finger pain Pertinent Findings stiffness 09/19/2013 None finger pain Pertinent Findings redness 09/19/2013 None finger pain Pertinent Findings pain with movement 09/19/2013 None sore throat Location diffusely 09/19/2013 None sore throat Quality acute 09/19/2013 None sore throat Onset and Resolution sudden in onset 09/19/2013 None sore throat Onset of Symptom 1 days ago 09/19/2013 None sore throat Pertinent Findings fever 09/19/2013 None sore throat Pertinent Findings facial pain 09/19/2013 None eye discharge Location in the left eye 08/05/2013 None eye discharge Quality acute 08/05/2013 None eye discharge Quality clear 08/05/2013 None eye discharge Onset and Resolution sudden in onset 08/05/2013 None eye discharge Pertinent Findings eye swelling 08/05/2013 None eye discharge Pertinent Findings eye tearing 08/05/2013 None oral pain Location on the mobile tongue 08/05/2013 None oral pain Location on the right 08/05/2013 None oral pain Quality acute 08/05/2013 None oral pain Quality aching 08/05/2013 None eye discharge Onset of Symptom _ days ago 08/05/2013 None eye discharge Severity moderate 08/05/2013 None eye discharge Frequency of Episodes increasing 08/05/2013 None eye discharge Significant Medical Conditions allergies 08/05/2013 None eye discharge Significant Medications antibiotic eye drops 08/05/2013 None eye discharge Triggers no known associated factors 08/05/2013 None eye discharge Pertinent Findings Denies facial pain 08/05/2013 None eye discharge Pertinent Findings Denies fever 08/05/2013 None eye discharge Pertinent Findings Denies URI symptoms 08/05/2013 None oral pain Onset of Symptom _ days ago 08/05/2013 None oral pain Limitation on Activities does not limit oral intake 08/05/2013 None oral pain Triggers no known associated factors 08/05/2013 None oral pain Pertinent Findings Denies cough 08/05/2013 None oral pain Pertinent Findings Denies decreased energy level 08/05/2013 None oral pain Pertinent Findings Denies facial pain 08/05/2013 None oral pain Pertinent Findings Denies fever 08/05/2013 None oral pain Pertinent Findings Denies hoarseness 08/05/2013 None oral pain Pertinent Findings Denies ill contacts 08/05/2013 None oral pain Pertinent Findings Denies oral ulcers 08/05/2013 None oral pain Pertinent Findings Denies vomiting 08/05/2013 None earache Location both ears 07/10/2013 None earache Quality acute 07/10/2013 None earache Severity moderate 07/10/2013 also sore throat. received notice that brother in law and has to leave for out of state soon earache Onset of Symptom 3-4 days ago 07/10/2013 None earache Triggers no known triggers 07/10/2013 None earache Exacerbating Factors weather change 07/10/2013 None hypertension Quality chronic 06/03/2013 None hypertension Quality stable 06/03/2013 None hypertension Onset and Resolution ongoing 06/03/2013 None hypertension Blood Pressure Values patient checking blood pressure at home - did not bring in readings 06/03/2013 None hypertension Pertinent Findings Denies dizziness 06/03/2013 None hypertension Pertinent Findings Denies dyspnea 06/03/2013 None hypertension Pertinent Findings Denies edema 06/03/2013 None hypertension Pertinent Findings Denies orthostatic hypotension 06/03/2013 None hypertension Pertinent Findings Denies palpitations 06/03/2013 None hypertension Pertinent Findings Denies tachycardia 06/03/2013 None sinus congestion Quality acute 06/03/2013 None sinus congestion Onset and Resolution sudden in onset 06/03/2013 None sinus congestion Onset of Symptom 1 days ago 06/03/2013 None sinus congestion Pertinent Findings cough 06/03/2013 None sinus congestion Pertinent Findings hoarseness 06/03/2013 None sinus congestion Pertinent Findings Denies fever 06/03/2013 None sinus congestion Location on both sides 06/03/2013 None sinus congestion Pertinent Findings facial pain 06/03/2013 None hypertension Quality chronic 05/07/2013 None hypertension Onset and Resolution ongoing 05/07/2013 None hypertension Blood Pressure Values patient checking blood pressure at home - did not bring in readings 05/07/2013 None hypertension Pertinent Findings Denies anxiety 05/07/2013 None hypertension Triggers no known associated factors 05/07/2013 None hypertension Alleviating Factors medication 05/07/2013 None hypertension Exacerbating Factors stress 05/07/2013 None hypertension Exacerbating Factors change in dietary habits 05/07/2013 None knee pain Location on the left 12/03/2012 None knee pain Location on the right 12/03/2012 None knee pain Quality tenderness 12/03/2012 None knee pain Quality chronic 12/03/2012 None knee pain Quality worsening 12/03/2012 None knee pain Frequency of Episodes increasing 12/03/2012 None knee pain Limitation on Activities restricts weight bearing activity 12/03/2012 has difficulty walking - has to use a cane at times, or when shopping, has to lean on the grocery cart for support due to her back and knee pain. knee pain Significant Medical Conditions degenerative joint disease 12/03/2012 None knee pain Significant Medical Conditions obesity 12/03/2012 None knee pain Significant Medical Conditions prior history of chronic knee instability 12/03/2012 None knee pain Pertinent Findings pain with movement 12/03/2012 None knee pain Pertinent Findings Denies sensation of buckling 12/03/2012 None knee pain Pertinent Findings stiffness 12/03/2012 None knee pain Pertinent Findings weakness 12/03/2012 None knee pain Pertinent Findings Denies warmth 12/03/2012 None dysuria Quality acute 09/24/2012 None dysuria Quality burning 09/24/2012 None dysuria Onset of Symptom 5 days ago 09/24/2012 None dysuria Onset and Resolution sudden in onset 09/24/2012 None sinus congestion Onset and Resolution sudden in onset 09/24/2012 None sinus congestion Onset of Symptom 2 days ago 09/24/2012 None sinus congestion Location on both sides 09/24/2012 None sinus congestion Quality acute 09/24/2012 None sinus congestion Quality pressure 09/24/2012 None sinus congestion Quality pain 09/24/2012 None oral lesion Quality burning 09/24/2012 states it feels raw and she can't taste. recently treated for thrush sinus congestion Triggers no known associated factors 09/24/2012 None sinus congestion Significant Medical Conditions allergic rhinitis 09/24/2012 None dysuria Limitation on Activities does not limit urination 09/24/2012 None dysuria Frequency of Episodes increasing 09/24/2012 None dysuria Triggers no known associated factors 09/24/2012 None oral lesion Pertinent Findings Denies cough 09/24/2012 None oral lesion Pertinent Findings Denies vomiting 09/24/2012 None fatigue Limitation on Activities does not limit activities 09/10/2012 None fatigue Triggers no known associated factors 09/10/2012 None fatigue Pertinent Findings Denies dizziness 09/10/2012 None fatigue Pertinent Findings insomnia 09/10/2012 None nausea Pertinent Findings dyspepsia 09/10/2012 None nausea Pertinent Findings heartburn 09/10/2012 None fatigue Frequency of Episodes unchanged 09/10/2012 None nausea Onset and Resolution ongoing 09/10/2012 None edema Quality acute 09/10/2012 None edema Quality pitting 09/10/2012 states feet feels like pins and needles edema Location on both ankles 09/10/2012 None fatigue Pertinent Findings Denies syncope 09/10/2012 None fatigue Pertinent Findings Denies tachycardia 09/10/2012 None fatigue Pertinent Findings Denies vomiting 09/10/2012 None fatigue Pertinent Findings Denies weakness 09/10/2012 None fatigue Onset and Resolution gradual in onset 09/10/2012 None hypothyroid Quality chronic 09/10/2012 None hypothyroid Onset and Resolution ongoing 09/10/2012 None hypothyroid Frequency of Episodes increasing 09/10/2012 None hypothyroid Triggers no known associated factors 09/10/2012 None hypothyroid Alleviating Factors medication 09/10/2012 None hypothyroid Pertinent Findings Denies coarse skin 09/10/2012 None hypothyroid Pertinent Findings Denies cold skin 09/10/2012 None hypothyroid Pertinent Findings decreased energy 09/10/2012 None hypothyroid Pertinent Findings dry skin 09/10/2012 None hypothyroid Pertinent Findings Denies edema 09/10/2012 None hypothyroid Pertinent Findings Denies palpitations 09/10/2012 None hypothyroid Pertinent Findings Denies weakness 09/10/2012 None nausea Onset of Symptom 1 weeks ago 09/10/2012 None nausea Severity moderate 09/10/2012 None fatigue Limitation on Activities does not limit activities 08/08/2012 None fatigue Onset and Resolution gradual in onset 08/08/2012 None fatigue Pertinent Findings insomnia 08/08/2012 None hypothyroid Quality chronic 08/08/2012 None hypothyroid Onset and Resolution ongoing 08/08/2012 None nausea Onset of Symptom 1 weeks ago 08/08/2012 None nausea Onset and Resolution sudden in onset 08/08/2012 None nausea Pertinent Findings dyspepsia 08/08/2012 None nausea Pertinent Findings heartburn 08/08/2012 None hypothyroid Frequency of Episodes increasing 08/08/2012 None fatigue Frequency of Episodes increasing 08/08/2012 None fatigue Triggers no known associated factors 08/08/2012 None fatigue Pertinent Findings Denies dizziness 08/08/2012 None fatigue Pertinent Findings Denies syncope 08/08/2012 None fatigue Pertinent Findings Denies tachycardia 08/08/2012 None fatigue Pertinent Findings Denies vomiting 08/08/2012 None fatigue Pertinent Findings Denies weakness 08/08/2012 None hypothyroid Triggers no known associated factors 08/08/2012 None hypothyroid Alleviating Factors medication 08/08/2012 None hypothyroid Pertinent Findings Denies coarse skin 08/08/2012 None hypothyroid Pertinent Findings Denies cold skin 08/08/2012 None hypothyroid Pertinent Findings decreased energy 08/08/2012 None hypothyroid Pertinent Findings dry skin 08/08/2012 None hypothyroid Pertinent Findings Denies edema 08/08/2012 None hypothyroid Pertinent Findings Denies palpitations 08/08/2012 None hypothyroid Pertinent Findings Denies weakness 08/08/2012 None nausea Severity moderate 08/08/2012 None urinary frequency Pertinent Findings back pain 02/15/2012 None urinary frequency Onset of Symptom 10 days ago 02/15/2012 while visiting mother in [place] had uti and was put on pyridum and antibiotic. doesn't feel that the symptoms have resolved urinary frequency Quality acute 02/15/2012 None urinary frequency Onset and Resolution ongoing 02/15/2012 None edema Quality acute 02/15/2012 None edema Quality painful 02/15/2012 None edema Quality pitting 02/15/2012 by evening edema Onset of Symptom 5 days ago 02/15/2012 None lower leg pain Location over the proximal anterior tibial surface 02/15/2012 bilateral states had meniscus surg by dr nelson then she slipped and tore it again requiring second surg in december. then took trip to [facility] to see mother and has had swelling and pain ever since edema Limitation on Activities moderately limits activities 02/15/2012 None edema Timing of Episodes in the evening 02/15/2012 None edema Triggers diet change 02/15/2012 None edema Triggers standing position 02/15/2012 None edema Alleviating Factors recumbency 02/15/2012 None edema Exacerbating Factors salty foods 02/15/2012 None edema Exacerbating Factors standing 02/15/2012 None edema Location on both legs 02/15/2012 None edema Pertinent Findings Denies back pain 02/15/2012 None edema Pertinent Findings Denies dyspnea 02/15/2012 None edema Pertinent Findings increased abdominal girth 02/15/2012 None edema Pertinent Findings Denies limb redness 02/15/2012 None urinary frequency Significant Medical Conditions urinary tract infections 02/15/2012 None urinary frequency Triggers no known associated factors 02/15/2012 None urinary frequency Alleviating Factors medication 02/15/2012 None urinary frequency Limitation on Activities moderately limits activities 02/15/2012 None hypertension Blood Pressure Values not checking blood pressure at home 11/10/2011 None hypertension Quality chronic 11/10/2011 None hypertension Onset and Resolution ongoing 11/10/2011 None hypertension Blood Pressure Values patient checking blood pressure at home - did not bring in readings 11/10/2011 155/126 right afteer thanksgiving after shopping all night hypertension Triggers stress 11/10/2011 None hypertension Alleviating Factors medication 11/10/2011 None hypertension Onset and Resolution gradual in onset 11/10/2011 None hypertension Quality chronic 08/01/2011 states went shopping on [employer] over night without taking any of medications and was in bed 2 days afterwards. states b/p was erratic diarrhea Quality acute 08/01/2011 over weekend. states irritable bowel has been acting up past several weeks depression Quality worsening 08/01/2011 stopped deplin, too expensive. wants something to go along with cymbalta hypertension Onset of Symptom during adulthood 08/01/2011 None hypertension Blood Pressure Values patient checking blood pressure at home - did not bring in readings 08/01/2011 155/126 right afteer thanksgiving after shopping all night hypertension Triggers stress 08/01/2011 None hypertension Alleviating Factors medication 08/01/2011 None diarrhea Onset and Resolution ongoing 08/01/2011 None diarrhea Limitation on Activities moderately limits activities 08/01/2011 None diarrhea Frequency of Episodes 4-6 stools per day 08/01/2011 None diarrhea Frequency of Episodes increasing 08/01/2011 None diarrhea Timing of Episodes no specific time 08/01/2011 None diarrhea Significant Medical Conditions irritable bowel syndrome 08/01/2011 None diarrhea Pertinent Findings abdominal distension 08/01/2011 None diarrhea Pertinent Findings cramping 08/01/2011 None diarrhea Pertinent Findings dyspepsia 08/01/2011 None diarrhea Pertinent Findings nausea 08/01/2011 None diarrhea Triggers stress 08/01/2011 None depression Triggers stress 08/01/2011 None depression Onset and Resolution ongoing 08/01/2011 None depression Onset of Symptom during adulthood 08/01/2011 None depression Limitation on Activities moderately limits activities 08/01/2011 None depression Pertinent Findings depressed mood 08/01/2011 None depression Pertinent Findings irritability 08/01/2011 None sore throat Location diffusely 07/14/2011 None cough Location in the lung 07/14/2011 None cough Quality acute 07/14/2011 prod yellow phlegm hoarseness Quality acute 07/14/2011 None hoarseness Quality worsening 07/14/2011 None hoarseness Onset of Symptom 4 days ago 07/14/2011 None sore throat Quality acute 07/14/2011 None sore throat Onset and Resolution ongoing 07/14/2011 None sore throat Onset of Symptom 2-3 days ago 07/14/2011 None sore throat Limitation on Activities does not limit oral intake 07/14/2011 None sore throat Frequency of Episodes increasing 07/14/2011 None cough Onset and Resolution ongoing 07/14/2011 None cough Onset of Symptom 2-3 days ago 07/14/2011 None cough Limitation on Activities does not limit activities 07/14/2011 None cough Frequency of Episodes increasing 07/14/2011 None blood pressure followup Quality chronic 05/23/2011 None blood pressure followup Onset and Resolution ongoing 05/23/2011 None blood pressure followup Blood Pressure Values Stage 0:SBP 130-139 mmHg / DBP 85-89 mmHg 05/23/2011 None blood pressure followup Triggers stress 05/23/2011 None blood pressure followup Alleviating Factors medication 05/23/2011 None headache Length of Episodes 5 days 05/03/2011 None headache Significant Medical Conditions allergic rhinitis 05/03/2011 None cough Location in the throat 05/03/2011 None cough Quality acute 05/03/2011 None cough Onset and Resolution sudden in onset 05/03/2011 None cough Onset of Symptom 5 days ago 05/03/2011 None cough Frequency of Episodes unchanged 05/03/2011 None cough Triggers post nasal drip 05/03/2011 None cough Triggers known allergens 05/03/2011 None headache Location in the frontal area 05/03/2011 None headache Quality pressure 05/03/2011 None headache Onset and Resolution ongoing 05/03/2011 None headache Onset of Symptom 5 days ago 05/03/2011 None headache Limitation on Activities does not limit activities 05/03/2011 None headache Frequency of Episodes increasing 05/03/2011 None hypertension Quality chronic 04/25/2011 None hypertension Onset and Resolution gradual in onset 04/25/2011 None hypertension Blood Pressure Values Stage 1:SBP 140-159 mmHg / DBP 90-99 mmHg 04/25/2011 None fatigue Quality chronic 04/25/2011 None fatigue Quality worsening 04/25/2011 None fatigue Onset and Resolution gradual in onset 04/25/2011 None fatigue Onset and Resolution resolved 04/25/2011 None fatigue Onset of Symptom 6-8 months ago 04/25/2011 None fatigue Alleviating Factors rest 04/25/2011 None fatigue Pertinent Findings depressed mood 04/25/2011 None Advance Directives No Advance Directive data Encounters Encounter Performer Location Codes Date ( EST. PATIENT, LEVEL II Diagnosis: Cellulitis of left upper limb[ICD10: L03.114] Shahida Goldman MD, [facility] CPT-4: 90361 02/25/2019 92670 EST. PATIENT, LEVEL III Diagnosis: Cellulitis of left upper limb[ICD10: L03.114] Isabelle Goldman MD, [facility] CPT-4: 51119 02/20/2019 ([id number]) 97180 EST. PATIENT, LEVEL III Diagnosis: Functional diarrhea[ICD10: K59.1] Melba Goldman MD, [facility] CPT- 4: 55851 01/29/2019 ([id number]) Miscellaneous no charge Diagnosis: Essential (primary) hypertension[ICD10: I10] Melba Goldman MD, [facility] CPT-4: 61901 11/16/2018 ([id number]) 57275 EST. PATIENT, LEVEL III Diagnosis: Essential (primary) hypertension[ICD10: I10] Shahida Goldman MD, [facility] CPT-4: 95646 11/13/2018 ([id number]) 47564 EST. PATIENT, LEVEL IV Diagnosis: Essential (primary) hypertension[ICD10: I10] Diagnosis: Mixed hyperlipidemia[ICD10: E78.2] Diagnosis: Hypothyroidism, unspecified[ICD10: E03.9] Shahida Goldman MD, [facility] CPT-4: 88928 10/30/2018 24031 EST. PATIENT, LEVEL III Diagnosis: Other mucopurulent conjunctivitis, bilateral[ICD10: H10.023] Diagnosis: Other allergic rhinitis[ICD10: J30.89] Shahida Goldman MD, [facility] CPT-4: 24149 10/08/2018 [id number] EST. PATIENT, LEVEL III Diagnosis: Essential (primary) hypertension[ICD10: I10] Diagnosis: Generalized anxiety disorder[ICD10: F41.1] Isabelle Goldman MD, [facility] CPT-4: 21948 07/16/2018 ([id number]) 68382 EST. PATIENT, LEVEL III Diagnosis: Acute recurrent maxillary sinusitis[ICD10: J01.01] Diagnosis: Frequency of micturition[ICD10: R35.0] Diagnosis: Low back pain[ICD10: M54.5] Shahida Goldman MD, [facility] CPT-4: 99842 07/10/2018 ([id number]) 95044 EST. PATIENT, LEVEL III Diagnosis: Acute recurrent maxillary sinusitis[ICD10: J01.01] Shahida Goldman MD, [facility] CPT-4: 36144 05/28/2018 ([id number]) Miscellaneous no charge Diagnosis: Laceration without foreign body, left lower leg, subsequent encounter[ICD10: S81.812D] Diagnosis: Laceration without foreign body, right lower leg, subsequent encounter[ICD10: S81.811D] Isabelle Goldman MD, [facility] CPT-4: 38958 02/08/2018 74836 EST. PATIENT, LEVEL III Diagnosis: Cellulitis of left lower limb[ICD10: L03.116] Diagnosis: Cellulitis of right lower limb[ICD10: L03.115] Diagnosis: Laceration without foreign body, left lower leg, initial encounter[ICD10: S81.812A] Diagnosis: Laceration without foreign body, right lower leg, initial encounter[ICD10: S81.811A] Isabelle Goldman MD, [facility] CPT-4: 09797 02/07/2018 ([id number]) 23620 EST. PATIENT, LEVEL IV Diagnosis: Primary generalized (osteo)arthritis[ICD10: M15.0] Diagnosis: Acute recurrent maxillary sinusitis[ICD10: J01.01] Diagnosis: Low back pain[ICD10: M54.5] Diagnosis: Other allergic rhinitis[ICD10: J30.89] Diagnosis: Obstructive sleep apnea (adult) (pediatric)[ICD10: G47.33] Shahida Goldman MD, [facility] CPT-4: 70949 01/19/2018 34051 EST. PATIENT, LEVEL IV Diagnosis: Diarrhea, unspecified[ICD10: R19.7] Diagnosis: Generalized abdominal pain[ICD10: R10.84] Diagnosis: Other allergic rhinitis[ICD10: J30.89] Diagnosis: Other acute sinusitis[ICD10: J01.80] Isabelle Goldman MD, [facility] CPT- 4: 21883 09/12/2017 49752 EST. PATIENT, LEVEL III Diagnosis: Acute laryngopharyngitis[ICD10: J06.0] Diagnosis: Other allergic rhinitis[ICD10: J30.89] Diagnosis: Cough[ICD10: R05] Diagnosis: Wheezing[ICD10: R06.2] Isabelle Goldman MD, [facility] CPT-4: 81767 07/25/2017 ([id number]) 28683 EST. PATIENT, LEVEL IV Diagnosis: Acute recurrent maxillary sinusitis[ICD10: J01.01] Diagnosis: Cervicalgia[ICD10: M54.2] Diagnosis: Diarrhea, unspecified[ICD10: R19.7] Shahida Goldman MD, [facility] CPT-4: 54267 06/27/2017 ([id number]) 79383 EST. PATIENT, LEVEL III Diagnosis: Chronic maxillary sinusitis[ICD10: J32.0] Diagnosis: Gastro-esophageal reflux disease without esophagitis[ICD10: K21.9] Shahida Goldman MD, [facility] CPT-4: 35056 05/08/2017 ([id number]) 52143 EST. PATIENT, LEVEL III Diagnosis: Acute recurrent maxillary sinusitis[ICD10: J01.01] Shahida Goldman MD, [facility] CPT-4: 61488 03/14/2017 00510 EST. PATIENT, LEVEL IV Diagnosis: Epigastric pain[ICD10: R10.13] Diagnosis: Left upper quadrant pain[ICD10: R10.12] Diagnosis: Left lower quadrant pain[ICD10: R10.32] Isabelle Goldman MD, [facility] CPT-4: 32987 02/20/2017 ([id number]) 10912 EST. PATIENT, LEVEL IV Diagnosis: Generalized anxiety disorder[ICD10: F41.1] Diagnosis: Major depressive disorder, recurrent, moderate[ICD10: F33.1] Diagnosis: Left upper quadrant pain[ICD10: R10.12] Diagnosis: Epigastric pain[ICD10: R10.13] Diagnosis: Actinic keratosis[ICD10: L57.0] Melba Goldman MD, [facility] CPT-4: 29532 02/06/2017 ([id number]) 09108 EST. PATIENT, LEVEL III Diagnosis: Actinic keratosis[ICD10: L57.0] Diagnosis: Major depressive disorder, recurrent, moderate[ICD10: F33.1] Melba Goldman MD, [facility] CPT-4: 54012 12/05/2016 ([id number]) 46615 EST. PATIENT, LEVEL III Diagnosis: Acute recurrent maxillary sinusitis[ICD10: J01.01] Diagnosis: Dysuria[ICD10: R30.0] Shahida Goldman MD, [facility] CPT-4: 00733 11/28/2016 75073 EST. PATIENT, LEVEL IV Diagnosis: Other acute sinusitis[ICD10: J01.80] Diagnosis: Acute laryngopharyngitis[ICD10: J06.0] Diagnosis: Other allergic rhinitis[ICD10: J30.89] Isabelle Goldman MD, [facility] CPT- 4: 31867 08/15/2016 ([id number]) 52928 EST. PATIENT, LEVEL III Diagnosis: Acute recurrent maxillary sinusitis[ICD10: J01.01] Diagnosis: Low back pain[ICD10: M54.5] Shahida Goldman MD, [facility] CPT-4: 43562 06/07/2016 ([id number]) Miscellaneous no charge Diagnosis: Essential (primary) hypertension[ICD10: I10] Shahida Goldman MD, [facility] CPT-4: 52923 03/15/2016 01277 EST. PATIENT, LEVEL IV Diagnosis: Essential (primary) hypertension[ICD10: I10] Diagnosis: Headache[ICD10: R51] Diagnosis: Generalized anxiety disorder[ICD10: F41.1] Shahida Goldman MD, [facility] CPT-4: 25095 03/14/2016 24331 EST. PATIENT, LEVEL III Diagnosis: Laceration without foreign body, left lower leg, initial encounter[ICD10: S81.812A] Isabelle Goldman MD, [facility] CPT-4: 73289 02/22/2016 ([id number]) 05001 EST. PATIENT, LEVEL III Diagnosis: Acute recurrent maxillary sinusitis[ICD10: J01.01] Diagnosis: Cough[ICD10: R05] Diagnosis: Allergic rhinitis due to pollen[ICD10: J30.1] Shahida Goldman MD, [facility] CPT-4: 67651 12/07/2015 ([id number]) 79762 EST. PATIENT, LEVEL IV Diagnosis: Essential (primary) hypertension[ICD10: I10] Diagnosis: Acute recurrent maxillary sinusitis[ICD10: J01.01] Diagnosis: Generalized anxiety disorder[ICD10: F41.1] Diagnosis: Cervicalgia[ICD10: M54.2] Diagnosis: Generalized intra-abdominal and pelvic swelling, mass and lump[ICD10: R19.07] Melba Goldman MD, [facility] CPT-4: 49727 11/24/2015 25771 EST. PATIENT, LEVEL III Diagnosis: Other migraine, intractable, without status migrainosus[ICD10: G43.819] Isabelle Goldman MD, [facility] CPT-4: 19667 08/27/2015 08671 EST. PATIENT, LEVEL III Diagnosis: Acute recurrent maxillary sinusitis[ICD10: J01.01] Diagnosis: Candidal stomatitis[ICD10: B37.0] Diagnosis: Acute laryngopharyngitis[ICD10: J06.0] Isabelle Goldman MD, [facility] CPT- 4: 62306 08/10/2015 31667 EST. PATIENT, LEVEL III Diagnosis: Superficial foreign body of left hand, initial encounter[ICD10: S60.552A] Melba Goldman MD, [facility] CPT-4: 74044 07/28/2015 ([id number]) 89020 EST. PATIENT, LEVEL III Diagnosis: Essential (primary) hypertension[ICD10: I10] Diagnosis: Tinea cruris[ICD10: B35.6] Diagnosis: Abnormal levels of other serum enzymes[ICD10: R74.8] Shahida Goldman MD, [facility] CPT-4: 41166 06/11/2015 ([id number]) 09001 EST. PATIENT, LEVEL IV Diagnosis: ESSENTIAL HYPERTENSION[ICD9: 401.9] Diagnosis: Hypothyroid[ICD9: 244.9] Diagnosis: ALLERGIC RHINITIS[ICD9: 477.9] Diagnosis: Anxiety[ICD9: 300.00] Diagnosis: Sleep apnea[ICD9: 780.57] Shahida Goldman MD, [facility] CPT-4: 25676 03/19/2015 ([id number]) 53856 EST. PATIENT, LEVEL III Diagnosis: ACUTE SINUSITIS[ICD9: 461.9] Celi Goldman MD, [facility] CPT-4: 39004 01/07/2015 ([id number]) 34087 EST. PATIENT, LEVEL III Diagnosis: Conjunctivitis[ICD9: 372.30] Shahida Goldman MD, [facility] CPT-4: 16315 09/23/2014 19844 EST. PATIENT, LEVEL II Diagnosis: Noninfected skin tear of leg[ICD9: 891.0] Shahida Goldman MD, [facility] CPT-4: 00835 08/05/2014 ([id number]) 22158 EST. PATIENT, LEVEL III Diagnosis: Chronic maxillary sinusitis[ICD9: 473.0] Shahida Goldman MD, [facility] CPT-4: 07920 06/23/2014 24289 EST. PATIENT, LEVEL II Diagnosis: Headache[ICD9: 784.0] Shahida Goldman MD, [facility] CPT-4: 64499 06/05/2014 ([id number]) 91771 EST. PATIENT, LEVEL III Diagnosis: Abrasion of right leg[ICD9: 916.0] Diagnosis: Headache[ICD9: 784.0] Diagnosis: ALLERGIC RHINITIS[ICD9: 477.9] Shahida Goldman MD, [facility] CPT-4: 38779 04/03/2014 89917 EST. PATIENT, LEVEL II Diagnosis: Tinea corporis[ICD9: 110.5] Diagnosis: Exposure to scabies[ICD9: V01.89] Shahida Goldman MD, [facility] CPT- 4: 22049 03/07/2014 ([id number]) 05375 EST. PATIENT, LEVEL III Diagnosis: ESSENTIAL HYPERTENSION[SNOMED: 81229913] Diagnosis: OSTEOARTH NOS-UNSPEC[ICD9: 715.90] Diagnosis: Lumbago[ICD9: 724.2] Diagnosis: Cervicalgia[ICD9: 723.1] Shahida Goldmna MD, [facility] CPT-4: 83026 11/21/2013 ([id number]) 94618 EST. PATIENT, LEVEL III Diagnosis: DEPRESSIVE DISORDER NEC[ICD9: 311] Diagnosis: Paronychia[ICD9: 681.9] Melba Goldman MD, [facility] CPT-4: 35383 09/24/2013 ([id number]) 47185 EST. PATIENT, LEVEL III Diagnosis: Paronychia[ICD9: 681.9] Diagnosis: Cellulitis[ICD9: 682.9] Melba Goldman MD, [facility] CPT-4: 80962 09/19/2013 ([id number]) 10465 EST. PATIENT, LEVEL III Diagnosis: Conjunctivitis[ICD9: 372.30] Diagnosis: Thrush[ICD9: 112.0] Shahida Goldman MD, [facility] CPT-4: 81159 08/05/2013 ([id number]) 60140 EST. PATIENT, LEVEL III Diagnosis: ACUTE MAXILLARY SINUSITIS[ICD9: 461.0] Diagnosis: COUGH[ICD9: 786.2] Diagnosis: Insomnia[ICD9: 780.52] Diagnosis: ESOPHAGEAL REFLUX[ICD9: 530.81] Melba Goldman MD, [facility] CPT-4: 96144 07/10/2013 ([id number]) Miscellaneous no charge Diagnosis: ESSENTIAL HYPERTENSION[SNOMED: 75533211] Melba Goldman MD, [facility] CPT-4: 59297 05/13/2013 ([id number]) 94468 EST. PATIENT, LEVEL IV Diagnosis: ESSENTIAL HYPERTENSION[SNOMED: 30177395] Diagnosis: HYPOTHYROIDISM[ICD9: 244.9] Diagnosis: OSTEOARTH NOS-UNSPEC[ICD9: 715.90] Melba Goldman MD, [facility] CPT- 4: 40032 05/07/2013 ([id number]) 64931 EST. PATIENT, LEVEL IV Diagnosis: Osteoarthritis[ICD9: 715.90] Diagnosis: Knee pain, bilateral[ICD9: 719.46] Diagnosis: Hip pain[ICD9: 719.45] Melba Goldman MD, [facility] CPT-4: 70962 12/03/2012 ([id number]) 03804 EST. PATIENT, LEVEL III Diagnosis: Thrush[ICD9: 112.0] Melba Goldman MD [facility] CPT-4: 22077 09/24/2012 ([id number]) 08043 EST. PATIENT, LEVEL IV Diagnosis: ESSENTIAL HYPERTENSION[SNOMED: 99487589] Diagnosis: Thrush[ICD9: 112.0] Diagnosis: Sleep apnea[ICD9: 780.57] Melba Goldman MD, [facility] CPT-4: 78630 09/10/2012 ([id number]) 79167 EST. PATIENT, LEVEL IV Diagnosis: Esophageal reflux[ICD9: 530.81] Diagnosis: Hypothyroid[ICD9: 244.9] Diagnosis: JOINT PAIN-MULT JOINTS[ICD9: 719.49] Diagnosis: ALLERGIC RHINITIS[ICD9: 477.9] Melba Goldman MD, [facility] CPT-4: 10279 08/08/2012 ([id number]) 79809 EST. PATIENT, LEVEL IV Diagnosis: Urinary frequency[ICD9: 788.41] Diagnosis: EDEMA[ICD9: 782.3] Diagnosis: HYPOTHYROIDISM[ICD9: 244.9] Diagnosis: Fatigue[ICD9: 780.79] Melba Goldman MD, [facility] CPT-4: 80838 02/15/2012 ([id number]) 22686 EST. PATIENT, LEVEL IV Diagnosis: Abdominal pain[ICD9: 789.00] Diagnosis: Fatigue[ICD9: 780.79] Diagnosis: Nausea[ICD9: 787.02] Melba Goldman MD, [facility] CPT-4: 59403 11/10/2011 60793 EST. PATIENT, LEVEL IV Diagnosis: ESSENTIAL HYPERTENSION[SNOMED: 17903161] Diagnosis: DIARRHEA[ICD9: 787.91] Diagnosis: DEPRESSIVE DISORDER NEC[ICD9: 311] Diagnosis: Irritable bowel disease[ICD9: 564.1] Melba Goldman MD, [facility] CPT- 4: 10467 08/01/2011 92879 EST. PATIENT, LEVEL III Diagnosis: ACUTE SINUSITIS[ICD9: 461.9] Diagnosis: Cough[ICD9: 786.2] Shahida Goldman MD, [facility] CPT-4: 83397 07/14/2011 68695 EST. PATIENT, LEVEL IV Diagnosis: VACCIN FOR INFLUENZA[ICD9: V04.81] Diagnosis: ESSENTIAL HYPERTENSION[SNOMED: 64217661] Diagnosis: GENERALIZED ANXIETY DISEASE[ICD9: 300.02] Diagnosis: SLEEP DISTURBANCES[ICD9: 780.50] Shahida Goldman MD, [facility] CPT- 4: 50416 05/23/2011 03432 EST. PATIENT, LEVEL III Diagnosis: ACUTE SINUSITIS[ICD9: 461.9] Diagnosis: ALLERGIC RHINITIS[ICD9: 477.9] Diagnosis: Cough[ICD9: 786.2] Shahida Goldman MD, [facility] CPT-4: 11769 05/03/2011 12247 EST. PATIENT, LEVEL IV Diagnosis: ESSENTIAL HYPERTENSION[SNOMED: 41375797] Diagnosis: DEPRESSIVE DISORDER NEC[ICD9: 311] Diagnosis: Fatigue[ICD9: 780.79] Shahida Goldman MD, [facility] CPT-4: 65792 04/25/2011 Plan of Care Planned Activity Notes Codes Status Date Visit Plan: Cellulitis -left forearm -slightly improved- continue with oral abx- start using warm moist compresses as directed -return in 2 weeks for recheck. 02/25/2019 Patient Education: Patient Medication Summary Completed 02/25/2019 Visit Plan: sore, Cellulitis - The patient was instructed in appropriate wound care. The patient was instructed to use the antibiotic ointment as per RX. The patient is to call for any change in symptoms, increase in size of the lesion, increase in pain, worsening redness, warmth, discharge. 02/20/2019 Appointment: Isabelle Orozco WPtel: [phone] [phone] (15 min) Moderate 02/20/2019 Patient Education: Patient Medication Summary Completed 02/20/2019 Visit Plan: Diarrhea - hold the lipitor x 2 weeks - , then restart at 1/2 pill three days a week - do this for two weeks then increase to 1/2 pill daily x 1 week then 1/2 pill m/w/f and 1 full pill tues/thurs/sat/sun - do this x 1 week then if no diarrhea - then restart the lipitor at 10mg daily thereafter - if the Diarrhea - restarts at any point in this process -call the office. Accuflora 14 billion units - this is a good probiotic. 01/29/2019 Appointment: Melba Goldman WPtel: [phone] [phone] (15 min) Moderate 01/29/2019 Patient Education: Patient Medication Summary Completed 01/29/2019 Patient Education: Diarrhea Completed 01/29/2019 Appointment: Nurse Visit 11/27/2018 Patient Education: Patient Medication Summary Completed 11/27/2018 Appointment: Nurse Visit 11/16/2018 Patient Education: Patient Medication Summary Completed 11/16/2018 Visit Plan: Hypertension - uncontrolled - the patient's medications have been modified as documented in the visit note. The patient has been counseled to cut back on salt in diet for a no added salt diet, low fat diet, start an exercise program with low weight bearing exercises and higher aerobic activity for heart health. The patient is to check blood pressure readings as an outpatient and either fax, call, or email the readings to the office next week for practitioner to review. The pt is to call for acute concerns. 11/13/2018 Appointment: Shahida Manzo WPtel: [phone] [phone] [place] (15 min) Moderate 11/13/2018 Patient Education: Patient Medication Summary Completed 11/13/2018 Visit Plan: Hypertension - uncontrolled - the patient's medications have been modified as documented in the visit note. The patient has been counseled to cut back on salt in diet for a no added salt diet, low fat diet, start an exercise program with low weight bearing exercises and higher aerobic activity for heart health. The patient is to check blood pressure readings as an outpatient and either fax, call, or email the readings to the office next week for practitioner to review. The pt is to call for acute concerns. Hyperlipidemia-check fasting labs Odzbytrmjnmspv-actcqsu-ycrym labs 10/30/2018 Visit Plan: Hypertension - uncontrolled - the patient's medications have been modified as documented in the visit note. The patient has been counseled to cut back on salt in diet for a no added salt diet, low fat diet, start an exercise program with low weight bearing exercises and higher aerobic activity for heart health. The patient is to check blood pressure readings as an outpatient and either fax, call, or email the readings to the office next week for practitioner to review. The pt is to call for acute concerns. Hyperlipidemia-check fasting labs Iolqjtqenapfcc-qagajxu-forcf labs 10/30/2018 Appointment: Shahida Manzo WPtel: [phone] [phone] (30 min) Complex 10/30/2018 Patient Education: Patient Medication Summary Completed 10/30/2018 Visit Plan: Conjunctivitis - rx for eye drops/lube sent electronically to the patient's pharmacy. The patient has been instructed to cleanse affected eye with warm washcloth, then place medication into affected eye four times daily. 10/08/2018 Appointment: Shahida Manzo WPtel: [phone] [phone] (30 min) Complex 10/08/2018 Patient Education: Patient Medication Summary Completed 10/08/2018 App[facility]ment: [facility] [phone] [phone] (15 min) Moderate 07/30/2018 Visit Plan: Anxiety - the patient has uncontrolled anxiety and will benefit from an SSRI on a daily basis to attempt control of the symptoms of anxiety (tachycardia, overwhelming sensations, stress, insomnia, etc). I also believe that the patient will benefit from very low dose of prn benzodiazepine. Pt is aware of the risks and benefits of treatment with the above medications. Hypertension - uncontrolled - the patient's medications have been modified as documented in the visit note. The patient has been counseled to cut back on salt in diet for a no added salt diet, low fat diet, start an exercise program with low weight bearing exercises and higher aerobic activity for heart health. The patient is to check blood pressure readings as an outpatient and either fax, call, or email the readings to the office next week for practitioner to review. The pt is to call for acute concerns. 07/16/2018 Appointment: Isabelle Orozco WPtel: [phone] [phone] (15 min) Moderate 07/16/2018 Patient Education: Patient Medication Summary Completed 07/16/2018 Visit Plan: Sinusitis - Pt has acute infection - pain in face, maxillary region, Pt informed to use decongestant, RX given to patient, sinus rinses also recommended. Call if symptoms do not show improvement. Urinary frequency -UA negative-monitor symptoms Chronic Pain Syndrome - pt has chronic pain - has been maintained on current medications, has not sought out other medications, only uses PRN pain medications as directed, and understands the consequences of over-medication. 07/10/2018 Appointment: Shahida Manzo WPtel: [phone] [phone] (15 min) Moderate 07/10/2018 Patient Education: Patient Medication Summary Completed 07/10/2018 Patient Education: Back Pain Completed 07/10/2018 Visit Plan: Sinusitis - Pt has acute infection - pain in face, maxillary region, Pt informed to use decongestant, RX given to patient, sinus rinses also recommended. Call if symptoms do not show improvement. 05/28/2018 Appointment: Shahida Manzo WPtel: [phone] (30 min) Complex 05/28/2018 Patient Education: Patient Medication Summary Completed 05/28/2018 Appointment: Nurse Visit 02/14/2018 Appointment: Nurse Visit 02/12/2018 Visit Plan: Wound Instructions - Pt was instructed to keep the wound clean, wash with antibacterial soap, use triple antibiotic ointment, call if redness, pustular drainage, or any other acute concerns. 02/08/2018 Appointment: Nurse Visit 02/08/2018 Patient Education: Patient Medication Summary Completed 02/08/2018 Visit Plan: Skin tears, Cellulitis - The patient was instructed in appropriate wound care. The patient was instructed to use the antibiotic ointment as per RX. The patient is to call for any change in symptoms, increase in size of the lesion, increase in pain, worsening redness, warmth, discharge. Wound Instructions - Pt was instructed to keep the wound clean, wash with antibacterial soap, use triple antibiotic ointment, call if redness, pustular drainage, or any other acute concerns. 02/07/2018 Appointment: Isabelle Orozco WPtel: [address] [place], [place] [phone] (15 min) Moderate 02/07/2018 Patient Education: Patient Medication Summary Completed 02/07/2018 Visit Plan: Arthritis- occasionally uncontrolled symptoms- recommend pt to take antiinflammatory as directed for pain control. Sinusitis - Pt has acute infection - pain in face, maxillary region, Pt informed to use decongestant, RX given to patient, sinus rinses also recommended. Call if symptoms do not show improvement.. Allergies - chronic - recommended pt to use allergy medication as prescribed. Pt has been counseled as to the appropriate use of the medication. Pt to call if allergy symptoms are not controlled with the medication. If using nasal spray, instructions as follows: Nasal spray- use twice daily, one spray per nostril twice daily, after 30 minutes, rinse out nose with saline spray.. Use opposite hand per nostril to spray in the nasal steroid allergy spray. Low back pain- chronic-symptoms worsening-history of spinal surgery-consider MRI lumbar spine with contrast if symptoms worsen-patient sees specialist in [place] and will need MRI before appt. The pt is to use prn antiinflammatories to manage acute pain. The patient is to call the office if the pain is worsening or does not improve. 01/19/2018 Visit Plan: Arthritis- occasionally uncontrolled symptoms- recommend pt to take antiinflammatory as directed for pain control. Sinusitis - Pt has acute infection - pain in face, maxillary region, Pt informed to use decongestant, RX given to patient, sinus rinses also recommended. Call if symptoms do not show improvement.. Allergies - chronic - recommended pt to use allergy medication as prescribed. Pt has been counseled as to the appropriate use of the medication. Pt to call if allergy symptoms are not controlled with the medication. If using nasal spray, instructions as follows: Nasal spray- use twice daily, one spray per nostril twice daily, after 30 minutes, rinse out nose with saline spray.. Use opposite hand per nostril to spray in the nasal steroid allergy spray. Low back pain- chronic-symptoms worsening-history of spinal surgery-consider MRI lumbar spine with contrast if symptoms worsen-patient sees specialist in [place] and will need MRI before appt. The pt is to use prn antiinflammatories to manage acute pain. The patient is to call the office if the pain is worsening or does not improve. Sleep apnea-patient continues to benefit from CPAP-improved sleep, less fatigue 01/19/2018 Appointment: Shahida Manzo WPtel: 101[address] [id number] [place] [address] (15 min) Moderate 01/19/2018 Patient Education: Patient Medication Summary Completed 01/19/2018 Visit Plan: Medicare Exam - today we discussed the patients past history, immunizations, preventative exams/evaluations - colonoscopy, fecal occult blood testing, routine labs for renal function, glucose, cholesterol, osteoporosis evaluations, cardiovascular testing and cancer screenings. We have also discussed mental health and the signs/symptoms of depression. The patient was advised of home safety evaluations and the need to make sure that as the aging process continues, we need to be aware of different ways to make the home a safer place to reside. The patient has also been counseled that exercise is necessary - and of utmost importance as we age to help decrease fall risk and to maintain independece in the home. Today we discussed the need for the patient to create paperwork for Advanced directives as well as for the patient to provide this office with a copy of her DOPA paperwork for health care surrogate. 11/23/2017 Appointment: Isabelle Orozco WPtel: [phone] [facility] [facility] - Annual Wellness Visit 11/23/2017 Patient Education: Patient Medication Summary Completed 11/23/2017 Visit Plan: Diarrhea - recommended bland diet, low fat diet, start on probiotic, and rehydrate with gatorade-like product. Pt to call if feeling worse, diarrhea becomes bloody, or does not improve with above recomm endations. Pt to call for acute worsening of stomach upset or stomach pain. Gastroenteritis - discussed need to stay away from milk products while acutely ill with diarrhea and nausea and emesis as it may worsen the symptoms. Liquids initially until the nausea improves, then recommend to advance to bland diet for 1 day, then advance as tolerated. Call if symptoms not improved. Allergies - chronic - recommended pt to use allergy medication as prescribed. Pt has been counseled as to the appropriate use of the medication. Pt to call if allergy symptoms are not controlled with the medication. If using nasal spray, instructions as follows: Nasal spray- use twice daily, one spray per nostril twice daily, after 30 minutes, rinse out nose with saline spray.. Use opposite hand per nostril to spray in the nasal steroid allergy spray. Sinusitis - Pt has acute infection - pain in face, maxillary region, Pt informed to use decongestant, RX given to patient, sinus rinses also recommended. Call if symptoms do not show improvement. 09/12/2017 Appointment: Isabelle Orozco WPtel: [facility]6 [facility] (15 min) Moderate 09/12/2017 Patient Education: Patient Medication Summary Completed 09/12/2017 Visit Plan: URI - Pt advised to increase fluids, vitamin C. Discussed natural and expected course of this diagnosis and need to alert me if symptoms do not follow expected course, or if any worse. RX sent to patient's pharmacy. Allergies - chronic - recommended pt to use allergy medication as prescribed. Pt has been counseled as to the appropriate use of the medication. Pt to call if allergy symptoms are not controlled with the medication. If using nasal spray, instructions as follows: Nasal spray- use twice daily, one spray per nostril twice daily, after 30 minutes, rinse out nose with saline spray.. Use opposite hand per nostril to spray in the nasal steroid allergy spray. 07/25/2017 Appointment: Isabelle Orozco WPtel: [facility] (30 min) Complex 07/25/2017 Patient Education: Patient Medication Summary Completed 07/25/2017 Patient Education: Obesity Completed 07/25/2017 Visit Plan: Sinusitis - Pt has acute infection - pain in face, maxillary region, Pt informed to use decongestant, RX given to patient, sinus rinses also recommended. Call if symptoms do not show improvement. Gastro enteritis - discussed need to stay away from milk products while acutely ill with diarrhea and nausea and emesis as it may worsen the symptoms. Liquids initially until the nausea improves, then recommend to advance to bland diet for 1 day, then advance as tolerated. Call if symptoms not improved. Neck pain-will schedule MRI neck-let us know when you are available 06/27/2017 Appointment: Shahida Manzo WPtel: [facility]7 [phone] (15 min) Moderate 06/27/2017 Patient Education: Patient Medication Summary Completed 06/27/2017 Visit Plan: Sinusitis - Pt has acute infection - pain in face, maxillary region, Pt informed to use decongestant, RX given to patient, sinus rinses also recommended. Call if symptoms do not show improvement. Esophageal Reflux - the patient has been counseled against excessive intake of caffeine, spicy foods, peppermint, and cinnamon - all of which can exacerbate esophageal reflux. The patient is to take medications as prescribed and call the office if the symptoms are not improving. 05/08/2017 Appointment: Shahida Manzo WPtel: [address] [place], [place] [id number] (15 min) Moderate 05/08/2017 Patient Education: Patient Medication Summary Completed 05/08/2017 Patient Education: Obesity Completed 05/08/2017 Appointment: [place] 04/20/2017 Patient Education: Patient Medication Summary Completed 04/20/2017 Visit Plan: Sinusitis - Pt has acute infection - pain in face, maxillary region, Pt informed to use decongestant, RX given to patient, sinus rinses also recommended. Call if symptoms do not show improvement. 03/14/2017 Appointment: Shahida Manzo WPtel: [facility]3 [phone] (15 min) Moderate 03/14/2017 Patient Education: Patient Medication Summary Completed 03/14/2017 Appointment: Shahida Manzo WPtel: [facility]7 [phone] (15 min) Moderate 02/21/2017 Visit Plan: Abdominal pain/Diverticulitis - pt sent for outpatient IV fluids, and 1 dose of IV flagyl - rx for antibiotic sent to pt's pharmacy - pt advised to avoid seeds, nuts, popcorn, or any other food which has been proven to upset the pt's stomach. Pt is to notify clinic if symptoms do not improve, if they worsen, or with any questions or concerns. Esophageal Reflux - the patient has been counseled against excessive intake of caffeine, spicy foods, peppermint, and cinnamon - all of which can exacerbate esophageal reflux. The patient is to take medications as prescribed and call the office if the symptoms are not improving. 02/20/2017 Appointment: Isabelle Orozco WPtel: 1015 [facility]6[address] (30 min) Complex 02/20/2017 Patient Education: Patient Medication Summary Completed 02/20/2017 Visit Plan: Abdominal pain - liquid diet x 2 days, call on to let me know it if is not better - will prescribe a medication called flagy Depression - uncontrolled - Pt has been counseled about the diagnosis of depression, the potential causes, and risks associated with the diagnosis. The pt denies suicidal ideation, or plans. The patient has been counseled about treatment options, and understands the risks associated with treatment of depression, as well as the risks associated with NOT treating the depression. I believe the pt will benefit from medical intervention and an antidepressant has been appropriately prescribed for this patient. trintellix - 10mg one pill daily in the morning. stop lexapro and start on the trintellix Skin lesion - rx for efudex - pt instructed on use 02/06/2017 Appointment: Melba Goldman WPtel: 1015 [facility] (15 min) Moderate 02/06/2017 Patient Education: Patient Medication Summary Completed 02/06/2017 Visit Plan: Wound Instructions - Pt was instructed to keep the wound clean, wash with antibacterial soap, use triple antibiotic ointment, call if redness, pustular drainage, or any other acute concerns. Depression - uncontrolled - Pt has been counseled about the diagnosis of depression, the potential causes, and risks associated with the diagnosis. The pt denies suicidal ideation, or plans. The patient has been counseled about treatment options, and understands the risks associated with treatment of depression, as well as the risks associated with NOT treating the depression. I believe the pt will benefit from medical intervention and an antidepressant has been appropriately prescribed for this patient. 12/05/2016 Visit Plan: Wound Instructions - Pt was instructed to keep the wound clean, wash with antibacterial soap, use triple antibiotic ointment, call if redness, pustular drainage, or any other acute concerns. Depression - uncontrolled - Pt has been counseled about the diagnosis of depression, the potential causes, and risks associated with the diagnosis. The pt denies suicidal ideation, or plans. The patient has been counseled about treatment options, and understands the risks associated with treatment of depression, as well as the risks associated with NOT treating the depression. I believe the pt will benefit from medical intervention and an antidepressant has been appropriately prescribed for this patient. 12/05/2016 Appointment: [facility]el[facility] [facility] 12/05/2016 Patient Education: Patient Medication Summary Completed 12/05/2016 Visit Plan: Sinusitis - Pt has acute infection - pain in face, maxillary region, Pt informed to use decongestant, RX given to patient, sinus rinses also recommended. Call if symptoms do not show improvement. Dysuria- culture urine 11/28/2016 Appointment: Shahida Manzo WPtel: [phone] (15 min) Moderate 11/28/2016 Patient Education: Patient Medication Summary Completed 11/28/2016 Care Plan: Urine Culture Pending 11/28/2016 Visit Plan: Medicare Exam - today we discussed the patients past history, immunizations, preventative exams/evaluations - colonoscopy, fecal occult blood testing, routine labs for renal function, glucose, cholesterol, osteoporosis evaluations, cardiovascular testing and cancer screenings. We have also discussed mental health and the signs/symptoms of depression. The patient was advised of home safety evaluations and the need to make sure that as the aging process continues, we need to be aware of different ways to make the home a safer place to reside. The patient has also been counseled that exercise is necessary - and of utmost importance as we age to help decrease fall risk and to maintain independence in the home. Today we discussed the need for the patient to create paperwork for Advanced directives as well as for the patient to provide this office with a copy of her DOPA paperwork for health care surrogate. Sinusitis - Pt has acute infection - pain in face, maxillary region, Pt informed to use decongestant, RX given to patient, sinus rinses also recommended. Call if symptoms do not show improvement. Hypothyroidism - pt with chronic hypothyroidism, continue with current medication, will monitor pt to signs or symptoms of lack of adequate supplementation. Pt is to continue with current dose of medication unless directed otherwise. Check labs at regular intervals wither q 3 months or q 6 months based on previous levels of control. 11/07/2016 Appointment: Isabelle Orozco WPtel: [address] [place], [place] [id number] [place] [address] - Annual Wellness Visit 11/07/2016 Patient Education: Patient Medication Summary Completed 11/07/2016 Patient Education: Obesity Completed 11/07/2016 Visit Plan: Sinusitis - Pt has acute infection - pain in face, maxillary region, Pt informed to use decongestant, RX given to patient, sinus rinses also recommended. Call if symptoms do not show improvement. URI - Pt advised to increase fluids, vitamin C. Discussed natural and expected course of this diagnosis and need to alert me if symptoms do not follow expected course, or if any worse. RX sent to patient's pharmacy. Allergies - chronic - recommended pt to use allergy medication as prescribed. Pt has been counseled as to the appropriate use of the medication. Pt to call if allergy symptoms are not controlled with the medication. If using nasal spray, instructions as follows: Nasal spray- use twice daily, one spray per nostril twice daily, after 30 minutes, rinse out nose with saline spray.. Use opposite hand per nostril to spray in the nasal steroid allergy spray. 08/15/2016 Appointment: Isabelle Orozco WPtel: [facility] (15 min) Moderate 08/15/2016 Patient Education: Patient Medication Summary Completed 08/15/2016 Patient Education: Obesity Completed 08/15/2016 Visit Plan: Sinusitis - Pt has acute infection - pain in face, maxillary region, Pt informed to use decongestant, RX given to patient, sinus rinses also recommended. Call if symptoms do not show improvement. Chronic back pain-refill hydrocodone for prn breakthrough pain use. 06/07/2016 Appointment: Shahida Manzo WPtel: [address]1 [phone] (10 min) Simple 06/07/2016 Patient Education: Patient Medication Summary Completed 06/07/2016 Patient Education: Obesity Completed 06/07/2016 Appointment: Lab Draw 05/05/2016 Patient Education: Patient Medication Summary Completed 05/05/2016 Appointment: Nurse Visit 03/15/2016 Patient Education: Patient Medication Summary Completed 03/15/2016 Visit Plan: Hypertension - uncontrolled - the patient's medications have been modified as documented in the visit note. The patient has been counseled to cut back on salt in diet for a no added salt diet, low fat diet, start an exercise program with low weight bearing exercises and higher aerobic activity for heart health. The patient is to check blood pressure readings as an outpatient and either fax, call, or email the readings to the office next week for practitioner to review. The pt is to call for acute concerns. Discussed with Dr Goldman-patient to go to hospital for EKG, labs including cardiac enzymes S tart edbarbi 40mg daily-dose given in the office today 03/14/2016 Appointment: Shahida Manzo WPtel: [facility]7 [phone] (15 min) Moderate 03/14/2016 Patient Education: Patient Medication Summary Completed 03/14/2016 Care Plan: COMPLETE CBC AUTOMATED LOINC : 96564-4 Pending 03/14/2016 Visit Plan: Cellulitis - The patient was instructed in appropriate wound care. The patient was instructed to use the antibiotic ointment as per RX. The patient is to call for any change in symptoms, increase in size of the lesion, increase in pain. 02/22/2016 Appointment: Isabelle Orozco WPtel: [facility] (15 min) Moderate 02/22/2016 Patient Education: Patient Medication Summary Completed 02/22/2016 Visit Plan: Sinusitis - Pt has acute infection - pain in face, maxillary region, Pt informed to use decongestant, RX given to patient, sinus rinses also recommended. Call if symptoms do not show improvement. Rocephin injection today in the office Allergies - chronic - recommended pt to use allergy medication as prescribed. Pt has been counseled as to the appropriate use of the medication. Pt to call if allergy symptoms are not controlled with the medication. If using nasal spray, instructions as follows: Nasal spray- use twice daily, one spray per nostril twice daily, after 30 minutes, rinse out nose with saline spray.. Use opposite hand per nostril to spray in the nasal steroid allergy spray. 12/07/2015 Patient Education: Patient Medication Summary Completed 12/07/2015 Patient Education: Obesity Completed 12/07/2015 Visit Plan: Hypertension - well controlled - continue with current medications, continue with no added salt diet. Pt has been encouraged to exercise daily. The pt has been advised to call the office if there are any acute concerns about change in blood pressure readings at home. Sinusitis - Pt has acute infection - pain in face, maxillary region, Pt informed to use decongestant, RX given to patient, sinus rinses also recommended. Call if symptoms do not show improvement. Cervicalgia - recommended pt to [facility] with [facility] - she needs to pursue treatment. Anxietly - medications unchanged. colonoscopy with dr. dai 11/24/2015 Appointment: Melba Goldman WPtel: [address] [place], [place] [id number] (30 min) [facility] 11/24/2015 Patient Education: Patient Medication Summary Completed 11/24/2015 Patient Education: Obesity Completed 11/24/2015 Patient Education: Hypertension Completed 11/24/2015 Patient Education: .Cervicalgia Neck Pain Completed 11/24/2015 Care Plan: Referral Order SNOMED-CT : [id number] Ordered 11/24/2015 Visit Plan: Acute Migraine - pt has chronic migraine headaches, but comes into clinic today complaining of intractable migraine headache symptoms. I have recommended changes to the chronic symptoms management and the pt has been given the following acute treatment in clinic today: 08/27/2015 Appointment: (15 min) Moderate 08/27/2015 Patient Education: Patient Medication Summary Completed 08/27/2015 Visit Plan: URI - Pt advised to increase fluids, vitamin C. Discussed natural and expected course of this diagnosis and need to alert me if symptoms do not follow expected course, or if any worse. RX sent to patient's pharmacy. Sinusitis - Pt has acute infection - pain in face, maxillary region, Pt informed to use decongestant, RX given to patient, sinus rinses also recommended. Call if symptoms do not show improvement. phenergan with codeine cough syrup called in to pharmacy. 08/10/2015 Appointment: (15 min) Moderate 08/10/2015 Patient Education: Patient Medication Summary Completed 08/10/2015 Visit Plan: Pt complains of a splinter in her left hand, near the thumb. Pt states that she noticed a week ago and has been trying to get it out. Pt states that she has used her fingernail, tweasers, and a needle with no success. Pt has a scab in place. Scab removed, pus extruded, splinter removed. Pt given antibiotic shot and oral antibiotic and ointment have been sent to the pharmacy. Pt is to notify clinic if symptoms do not improve, if they worsen, or with other concerns. 07/28/2015 Visit Plan: Pt complains of a splinter in her left hand, near the thumb. Pt states that she noticed a week ago and has been trying to get it out. Pt states that she has used her fingernail, tweasers, and a needle with no success. Pt has a scab in place. Scab removed, pus extruded, splinter removed. Pt given antibiotic shot and oral antibiotic and ointment have been sent to the pharmacy. Pt is to notify clinic if symptoms do not improve, if they worsen, or with other concerns. 07/28/2015 Patient Education: Patient Medication Summary Completed 07/28/2015 Care Plan: Geraldine NULL RTS Pending 07/28/2015 Visit Plan: HTN-improved today-no change in medications Tinea- start clotrimazole and diflucan Elevated ALT-check labs today to monitor 06/11/2015 Appointment: Shahida Manzo WPtel: [address] [place], [place] [id number] (15 min) Moderate 06/11/2015 Patient Education: Patient Medication Summary Completed 06/11/2015 Patient Education: Hypertension Completed 06/11/2015 Visit Plan: Hypertension - elevated today but didn't take medication, otherwise well controlled - continue with current medications, continue with no added salt diet. Pt has been encouraged to exercise daily. The pt has been advised to call the office if there are any acute concerns about change in blood pressure readings at home. Hypothyroidism - pt with chronic hypothyroidism, continue with current medication, will monitor pt to signs or symptoms of lack of adequate supplementation. Pt is to continue with current dose of medication unless directed otherwise. Check labs at regular intervals wither q 3 months or q 6 months based on previous levels of control. Chronic Depression and anxiety - the pt has symptoms of chronic anxiety and depression that have NOT BEEN well controlled since the last office visit. The pt has expected periods of exacerbation with abatement of the symptoms with change in situational exposure. CROSS TAPER CYMBALTA TO LEXAPRO Allergies - chronic - recommended pt to use allergy medication as prescribed. Pt has been counseled as to the appropriate use of the medication. Pt to call if allergy symptoms are not controlled with the medication. If using nasal spray, instructions as follows: Nasal spray- use twice daily, one spray per nostril twice daily, after 30 minutes, rinse out nose with saline spray.. Use opposite hand per nostril to spray in the nasal steroid allergy spray. KENALOG INJECTION TODAY IN THE OFFICE Sleep apnea-patient needs new CPAP-will contact [facility] patient Pt reports that she uses her CPAP and feels like she gets benefit from use of her CPAP with improved energy. 03/19/2015 Visit Plan: Hypertension - elevated today but didn't take medication, otherwise well controlled - continue with current medications, continue with no added salt diet. Pt has been encouraged to exercise daily. The pt has been advised to call the office if there are any acute concerns about change in blood pressure readings at home. Hypothyroidism - pt with chronic hypothyroidism, continue with current medication, will monitor pt to signs or symptoms of lack of adequate supplementation. Pt is to continue with current dose of medication unless directed otherwise. Check labs at regular intervals wither q 3 months or q 6 months based on previous levels of control. Chronic Depression and anxiety - the pt has symptoms of chronic anxiety and depression that have NOT BEEN well controlled since the last office visit. The pt has expected periods of exacerbation with abatement of the symptoms with change in situational exposure. CROSS TAPER CYMBALTA TO LEXAPRO Allergies - chronic - recommended pt to use allergy medication as prescribed. Pt has been counseled as to the appropriate use of the medication. Pt to call if allergy symptoms are not controlled with the medication. If using nasal spray, instructions as follows: Nasal spray- use twice daily, one spray per nostril twice daily, after 30 minutes, rinse out nose with saline spray.. Use opposite hand per nostril to spray in the nasal steroid allergy spray. KENALOG INJECTION TODAY IN THE OFFICE 03/19/2015 Visit Plan: Hypertension - elevated today but didn't take medication, otherwise well controlled - continue with current medications, continue with no added salt diet. Pt has been encouraged to exercise daily. The pt has been advised to call the office if there are any acute concerns about change in blood pressure readings at home. Hypothyroidism - pt with chronic hypothyroidism, continue with current medication, will monitor pt to signs or symptoms of lack of adequate supplementation. Pt is to continue with current dose of medication unless directed otherwise. Check labs at regular intervals wither q 3 months or q 6 months based on previous levels of control. Chronic Depression and anxiety - the pt has symptoms of chronic anxiety and depression that have NOT BEEN well controlled since the last office visit. The pt has expected periods of exacerbation with abatement of the symptoms with change in situational exposure. CROSS TAPER CYMBALTA TO LEXAPRO Allergies - chronic - recommended pt to use allergy medication as prescribed. Pt has been counseled as to the appropriate use of the medication. Pt to call if allergy symptoms are not controlled with the medication. If using nasal spray, instructions as follows: Nasal spray- use twice daily, one spray per nostril twice daily, after 30 minutes, rinse out nose with saline spray.. Use opposite hand per nostril to spray in the nasal steroid allergy spray. KENALOG INJECTION TODAY IN THE OFFICE Sleep apnea-patient needs new CPAP-will contact [facility] Pt reports that she uses her CPAP and feels like she gets benefit from use of her CPAP with improved energy. 03/19/2015 Visit Plan: Hypertension - elevated today but didn't take medication, otherwise well controlled - continue with current medications, continue with no added salt diet. Pt has been encouraged to exercise daily. The pt has been advised to call the office if there are any acute concerns about change in blood pressure readings at home. Hypothyroidism - pt with chronic hypothyroidism, continue with current medication, will monitor pt to signs or symptoms of lack of adequate supplementation. Pt is to continue with current dose of medication unless directed otherwise. Check labs at regular intervals wither q 3 months or q 6 months based on previous levels of control. Chronic Depression and anxiety - the pt has symptoms of chronic anxiety and depression that have NOT BEEN well controlled since the last office visit. The pt has expected periods of exacerbation with abatement of the symptoms with change in situational exposure. CROSS TAPER CYMBALTA TO LEXAPRO Allergies - chronic - recommended pt to use allergy medication as prescribed. Pt has been counseled as to the appropriate use of the medication. Pt to call if allergy symptoms are not controlled with the medication. If using nasal spray, instructions as follows: Nasal spray- use twice daily, one spray per nostril twice daily, after 30 minutes, rinse out nose with saline spray.. Use opposite hand per nostril to spray in the nasal steroid allergy spray. KENALOG INJECTION TODAY IN THE OFFICE Sleep apnea-patient needs new CPAP-will contact [facility] 03/19/2015 Appointment: (15 min) Moderate 03/19/2015 Patient Education: Patient Medication Summary Completed 03/19/2015 Patient Education: Hypertension Completed 03/19/2015 Visit Plan: .Sinusitis - Pt has acute infection - pain in face, maxillary region, Pt informed to use decongestant, RX given to patient, sinus rinses also recommended. Recommend take start on probiotic while on antibiotics. Call if symptoms do not show improvement. Conjunctivitis - rx for eye drops/lube sent electronically to the patient's pharmacy. The patient has been instructed to cleanse affected eye with warm washcloth, then place medication into affected eye four times daily Pt leaving Monday for cruise, Scopolamine patch prescription sent to pharmacy per pt request. 01/07/2015 Patient Education: Patient Medication Summary Completed 01/07/2015 Patient Education: [facility] [place] 2[place] - Saving AutoInj - 18+ - Dynamic Portal ID Completed 01/07/2015 Patient Education: .Cervicalgia Neck Pain Completed 01/07/2015 Appointment: Follow up 09/26/2014 Visit Plan: Conjunctivitis - rx for eye drops/lube sent electronically to the patient's pharmacy. The patient has been instructed to cleanse affected eye with warm washcloth, then place medication into affected eye four times daily. 09/23/2014 Appointment: Sick 09/23/2014 Patient Education: Patient Medication Summary Completed 09/23/2014 Visit Plan: Skin tear of left and right lower leg-bleeding resolved- cleansed both areas and approximated skin flap and steri strip x 1 to each wound placed and covered with non adherent dressing and wrapped in gauze-instructed patient to keep dressing on until tomorrow. Leave steri strips on until they come off on their own. Call for any redness, drainage, warmth, or uncontrolled bleeding. Patient verbalized understandig of plan. 08/05/2014 Appointment: Sick 08/05/2014 Patient Education: Patient Medication Summary Completed 08/05/2014 Patient Education: Patient Medication Summary Completed 07/17/2014 Visit Plan: Sinusitis - chronic - pain in face, maxillary region, Pt informed to use decongestant, RX given to patient, sinus rinses also recommended. Call if symptoms do not show improvement. 06/23/2014 Patient Education: Patient Medication Summary Completed 06/23/2014 Visit Plan: Trigger Points - Injected trigger points cervical muscles today, pt given post-injection instructions, signs and symptoms for which to call the office. Pt to use heat to the muscles today, and take an anti- inflammatory today unless otherwise contraindicated by renal function or other disease process. 06/05/2014 Appointment: Follow up 06/05/2014 Patient Education: Patient Medication Summary Completed 06/05/2014 Patient Education: .Cervicalgia Neck Pain Completed 06/05/2014 Visit Plan: Abrasion right leg-RX for keflex Headache-much improved- monitor and call if does not resolve Allergies-continue medications and call if symptoms do not improve, or if any worse. 04/03/2014 Appointment: Follow up 04/03/2014 Patient Education: Patient Medication Summary Completed 04/03/2014 Visit Plan: Tinea-discussed natural and expected course of this diagnosis and to alert me if symtpoms do not follow expect course, or if any worse. RX sent to patient's pharmacy. Keep areas dry Exposure to scabies-RX sent to [facility] pharmacy. 03/07/2014 Appointment[facility] [phone] [facility] [place] rash 03/07/2014 Patient Education: Patient Medication Summary Completed 03/07/2014 Appointment: Lab Draw 02/11/2014 Patient Education: Patient Medication Summary Completed 02/11/2014 Visit Plan: Hypertension - well controlled - continue with current medications, continue with no added salt diet. Pt has been encouraged to exercise daily. The pt has been advised to call the office if there are any acute concerns about change in blood pressure readings at home. Vspqehk-gzdtlicehtr-bkwsgcrr duragesic patch-appt with Dr Ortiz for pain management 11/21/2013 Appointment: Shahida Manzo WPtel: [address] [place], [place] [id number] Follow up 11/21/2013 Patient Education: Patient Medication Summary Completed 11/21/2013 Patient Education: Hypertension Completed 11/21/2013 Patient Education: .Cervicalgia Neck Pain Completed 11/21/2013 Appointment: Melba Goldman WPtel: [address] [place], [place] [id number] Other 11/19/2013 Appointment: Melba Goldman WPtel: [address] [place], [place] [phone] Follow up 11/06/2013 Appointment: Melba Goldman WPtel: [address] [place], [place] [phone] Lab Draw 10/15/2013 Patient Education: Patient Medication Summary Completed 10/15/2013 Visit Plan: Paronychia-continue abx as previously prescribed. ROCEPHIN injection today in the office. Continue using bactroban ointment as well. Call if redness, swelling, warmth does not resolve, or if any worse D epression - uncontrolled - Pt has been counseled about the diagnosis of depression, the potential causes, and risks associated with the diagnosis. The pt denies suicidal ideation, or plans. The patient has been counseled about treatment options, and understands the risks associated with treatment of depression, as well as the risks associated with NOT treating the depression. I believe the pt will benefit from medical intervention and an antidepressant has been appropriately prescribed for this patient. ADD ABILIFY 2MG AT BEDTIME 09/24/2013 Appointment: Shahida Manzo WPtel: [phone] Other 09/24/2013 Patient Education: Patient Medication Summary Completed 09/24/2013 Visit Plan: Paronychia/Cellulitis - continue with oral antibiotics as previously directed, return to clinic as previously directed, call for acute change in symptoms, worsening redness, warmth, discharge. 09/19/2013 Appointment: Melba Goldman WPtel: [phone] [facility] [place] Other 09/19/2013 Patient Education: Patient Medication Summary Completed 09/19/2013 Visit Plan: Conjunctivitis - rx for eye drops/lube sent electronically to the patient's pharmacy. The patient has been instructed to cleanse affected eye with warm washcloth, then place medication into affected eye four times daily. Thrush-refill nystatin-call if symptoms do not resolve 08/05/2013 Appointment: [facility] [phone] [phone] [place] Sick 08/05/2013 Patient Education: Patient Medication Summary Completed 08/05/2013 Visit Plan: Sinusitis - Pt has acute infection - pain in face, maxillary region, Pt informed to use decongestant, RX given to patient, sinus rinses also recommended. Call if symptoms do not show improvement. Bronchitis - acute case of bronchitis identified. Pt has been given antibiotics, breathing treatments as appropriate, and pt has been instructed to call if symptoms are not improved, or if symptoms acutely worsen. Esophageal Reflux - the patient has been counseled against excessive intake of caffiene, spicy foods, peppermint, and cinnamon - all of which can exacerbate esophageal reflux. The patient is to take medications as prescribed and call the office if the symptoms are not improving. TRAZODONE REPLACES THE AMBIEN - START WITH 1/2 PILL AT BEDTIME, MAY GO UP TO 1 PILL IF NEEDED. START ON CARAFATE NEEDED FOR REFLUX SYMPTOMS START CEFDINIR FOR ANTIBIOTIC FOR SINUSITIS/BRONCHITIS START PREDNISONE FOR SYMPTOMS SINUSITIS/DYSPNEA. 07/10/2013 Patient Education: Patient Medication Summary Completed 07/10/2013 Visit Plan: Hypertension - uncontrolled - the patient's medications have been modified as documented in the visit note. The patient has been counseled to cut back on salt in diet for a no added salt diet, low fat diet, start an exercise program with low weight bearing exercises and higher aerobic activity for heart health. The patient is to check blood pressure readings as an outpatient and either fax, call, or email the readings to the office next week for practicioner to review. The pt is to call for acute concerns. Sinusitis - Pt has acute infection - pain in face, maxillary region, Pt informed to use decong estant, RX given to patient, sinus rinses also recommended. Call if symptoms do not show improvement. 06/03/2013 Appointment: Melba Goldman WPtel: [facility]5 [facility] Follow up 06/03/2013 Patient Education: Patient Medication Summary Completed 06/03/2013 Patient Education: Hypertension Completed 06/03/2013 Appointment: Melba Goldman WPtel: [facility] [place] Nurse Visit 05/13/2013 Patient Education: Patient Medication Summary Completed 05/13/2013 Patient Education: Hypertension Completed 05/13/2013 Visit Plan: Hypertension - uncontrolled - the patient's medications have been modified as documented in the visit note. The patient has been counseled to cut back on salt in diet for a no added salt diet, low fat diet, start an exercise program with low weight bearing exercises and higher aerobic activity for heart health. The patient is to check blood pressure readings as an outpatient and either fax, call, or email the readings to the office next week for practicioner to review. The pt is to call for acute concerns. Arthritis- occasionally uncontrolled symptoms- recommend pt to use topical antiinflammatory as directed for pain control. Use tylenol for break through pain symptoms. Hypothyroidism - pt with chronic hypothyroidism, continue with current medication, will monitor pt to signs or symptoms of lack of adequate supplementation. Pt is to continue with current dose of medication unless directed otherwise. Check labs at regular intervals wither q 3 months or q 6 months based on previous levels of control. 05/07/2013 Appointment: [facility] [phone] [facility] [place] Follow up 05/07/2013 Patient Education: Patient Medication Summary Completed 05/07/2013 Patient Education: Hypertension Completed 05/07/2013 Patient Education: Patient Medication Summary Completed 04/30/2013 Patient Education: Hypertension Completed 04/30/2013 Visit Plan: Arthritis- occasionally uncontrolled symptoms- recommend pt to take antiinflammatory as directed for pain control. Use tylenol for break through pain symptoms. 12/03/2012 Appointment: Melba Goldman WPtel: [phone] [facility] Follow up 12/03/2012 Patient Education: Patient Medication Summary Completed 12/03/2012 Patient Education: Patient Medication Summary Completed 11/29/2012 Patient Education: Hypertension Completed 11/29/2012 Visit Plan: Sinusitis - Pt has acute infection - pain in face, maxillary region, Pt informed to use decongestant, RX given to patient, sinus rinses also recommended. Call if symptoms do not show improvement. Dysuria-trace leukocytes-urine sent for cultlure Thrush-symptoms returning-refill diflucan to start after abx completed History of herpes-RX for acyclovir-instructed pt to make appt if symptoms do not resolve 09/24/2012 Appointment: Shahida Manzo WPtel: [address] [phone] [place] [address] 09/24/2012 Patient Education: Patient Medication Summary Completed 09/24/2012 Visit Plan: Hypertension - well controlled - continue with current medications, continue with no added salt diet. Pt has been encouraged to exercise daily. The pt has been advised to call the office if there are any acute concerns about change in blood pressure readings at home. Sleep apnea- not wearing current mask due to uncomfortable fit, recommended pt to get new mask fitted lindsay. Thrush- treating with diflucan 09/10/2012 Appointment: Melba Goldman WPtel: [facility]5 [facility] Follow up 09/10/2012 Patient Education: Patient Medication Summary Completed 09/10/2012 Patient Education: Hypertension Completed 09/10/2012 Visit Plan: Esophageal Reflux - the patient has been counseled against excessive intake of caffiene, spicy foods, peppermint, and cinnamon - all of which can exacerbate esophageal reflux. The patient is to take med ications as prescribed and call the office if the symptoms are not improving. Hypothyroidism - pt with chronic hypothyroidism, medication changes today, will monitor pt to signs or symptoms of lack of adequate supplementation. Pt is to continue with current dose of medication unless directed otherwise. Check labs at regular intervals wither q 3 months or q 6 months based on previous levels of control. Allergies - chronic - recommended pt to use allergy medication as prescribed. Pt has been counseled as the the appropriate use of the medication. Pt to call if allergy symptoms are not controlled with the medication. If using nasal spray, instructions as follows: Nasal spray- use twice daily, one spray per nostril twice daily, after 30 minutes, rinse out nose with saline spray.. Use opposite hand per nostril to spray in the nasal steroid allergy spray. Arthritis- occasionally uncontrolled symptoms- recommend pt to take antiinflammatory as directed for pain control. Samples of celebrex 200mg po elias y-stop aleve Use tylenol for break through pain symptoms. 08/08/2012 Appointment: Shahida Manzo WPtel: [phone] [place] [phone] [place] [address] Follow up 08/08/2012 Patient Education: Patient Medication Summary Completed 08/08/2012 Patient Education: Patient Medication Summary Completed 08/07/2012 Patient Education: Hypertension Completed 08/07/2012 Appointment: Melba Goldman WPtel: [facility] [address] Lab Draw 02/16/2012 Patient Education: Patient Medication Summary Completed 02/16/2012 Visit Plan: UTI - pt with positive urinalysis - culture sent if appropriate. Antibiotic electronically prescribed to pt's pharmacy of choice. Pt to call if symptoms do not improve. UTI - pt with positive urinalysis - culture sent if appropriate. Antibiotic electronically prescribed to pt's pharmacy of choice. Pt to call if symptoms do not improve. Cultrelle- probiotic to prevent diarrhea while on the antibiotic. Pt to be on levaquin x 5 days. Labs to be drawn tomorrow: TSH, Free T4, CMP Fatigue and Hypothyroidism - pt needed medications changed three months ago - perhaps that is part of her fatigue. Needs labs. 02/15/2012 Appointment: Melba Goldman WPtel: [phone] [facility] [place] Other 02/15/2012 Patient Education: Patient Medication Summary Completed 02/15/2012 Visit Plan: Abdominal pain - ultrasound tomorrow AM nothing to eat before the ultrasound from 11pm tonight bland diet. Nausea - worse with fatty foods, recommended low fat/bland diet, call if symptoms worsening. 11/10/2011 Appointment: Melba Goldman WPtel: [phone] [facility] Other 11/10/2011 Patient Education: Patient Medication Summary Completed 11/10/2011 Patient Education: Patient Medication Summary Completed 11/08/2011 Patient Education: High Blood Pressure: Essential Hypertension Completed 11/08/2011 Visit Plan: Hypertension - well controlled - continue with current medications, continue with no added salt diet. Pt has been encouraged to exercise daily. The pt has been advised to call the office if there are any acute concerns about change in blood pressure readings at home. Depression - uncontrolled - Pt has been counseled about the diagnosis of depression, the potential causes, and risks associated with the diagnosis. The pt denies suicidal ideation, or plans. The patient has been counseled about treatment options, and understands the risks associated with treatment of depression, as well as the risks associated with NOT treating the depression. I believe the pt will benefit from medical intervention and an antidepressant has been appropriately prescribed for this patient. START ON THE ABILIFY 2 mg AT BEDTIME. Irritable bowel syndrome - rx for betntyl- take three times daily, sheould help with the cramoing discomfort. Benefiber for fiber in diet to bulk up the stools. 08/01/2011 Appointment: [facility] [phone] [facility] [facility] 08/01/2011 Patient Education: Patient Medication Summary Completed 08/01/2011 Patient Education: High Blood Pressure: Essential Hypertension Completed 08/01/2011 Visit Plan: Sinusitis - Pt has acute infection - pain in face, maxillary region, Pt informed to use decongestant, RX given to patient, sinus rinses also recommended. Call if symptoms do not show improvement. Cough- kishore zurita 07/14/2011 Appointment: Shahida Manzo WPtel: [phone] [phone] Other 07/14/2011 Patient Education: Patient Medication Summary Completed 07/14/2011 Visit Plan: Hypertension - continue with current medications, continue with no added salt diet. Pt has been encouraged to exercise daily. Refill bystolic-also sent rX. Will obtain renal artery ultrasound due to cordell espinoza's resistent hypertension-she is currently on 3 medications for blood pressure and still has some elevated blood pressures-see scanned document. The pt has been advised to call the office if there are any acute concerns about change in blood pressure readings at home. Anxiety - fairly well controlled symptoms of anxiety (tachycardia, overwhelming sensations, stress, insomnia, etc). Continue with current treatment plan. Refill xanax. Pt is aware of the risks and benefits of treament with the above medications. Insomnia - discussed diet, exercise, caffeine intake, and other sleeping habits. The patient has been counseled to cut back on caffeine, start dimming lights at night to produce more natural environment and help stimulate the brain to start releasing melatonin. Refill ambien. Influenza vaccine today in the office. 05/23/2011 Appointment: Shahida Manzo WPtel: [address] [place] [address] Other 05/23/2011 Patient Education: Patient Medication Summary Completed 05/23/2011 Visit Plan: DX sinusitis - discussed expected course with the patient, pt advised to call for worsening symptoms, or lack of improvement on prescribed treatment course. Recommended sinus rinses, samples of nasonex given as well. Allergies - Advised avoidance of allergens if possible, we discussed natural and expected course of this diagnosis and need to alert me if symtpoms do not follow expected course, or if any worse. Pt given samples and script for nasonex. Kenalog injection in the office today as well. Samples of singulair also provided for patient. Cough-refill cough med 05/03/2011 Appointment: Shahida Manzo WPtel: [address] [place] [address] [place] Other 05/03/2011 Patient Education: Patient Medication Summary Completed 05/03/2011 Visit Plan: Hypertension - fairlywell controlled - due to extreme fatigue i have instructed Cecelia to stop the toprol and start bystolic 10mg daily. Continue with no added salt diet. Pt has been encouraged to exercise daily. The pt has been advised to call the office if there are any acute concerns about change in blood pressure readings at home. Otherwise, return to clinic in 1 month for re-evaluation. Depression-symptoms are slightly improved on cymbalta but not completely controlled. Plan to add deplin to see if we can get better management of overall depressive symptoms. Patient feels safe at home, no suicidal ideation. Plan to see patient in 1 month for follow up. Fatigue-worsening over the past several months. Plan to stop patient's metoprolol as I suspect this is a causative agent in her overwhelming fatigue. Will switch her to bystolic to see if we can imrpove her symptoms. Doctor's eval of the patient - I personally discussed the patient with the nurse practicioner. I have reviewed the patient's chart, I have reviewed the patient's past medical history, problem list, medication list, and personal history. I agree with the documentation by the nurse practicioner in the HPI, physical exam, and the as sessment and plan. I discussed the plan and helped formulate the plan with the nurse practicioner. 04/25/2011 Visit Plan: Hypertension - fairlywell controlled - due to extreme fatigue i have instructed Cecelia to stop the toprol and start bystolic 10mg daily. Continue with no added salt diet. Pt has been encouraged to exercise daily. The pt has been advised to call the office if there are any acute concerns about change in blood pressure readings at home. Otherwise, return to clinic in 1 month for re-evaluation. Depression-symptoms are slightly improved on cymbalta but not completely controlled. Plan to add deplin to see if we can get better management of overall depressive symptoms. Patient feels safe at home, no suicidal ideation. Plan to see patient in 1 month for follow up. Fatigue-worsening over the past several months. Plan to stop patient's metoprolol as I suspect this is a causative agent in her overwhelming fatigue. Will switch her to bystolic to see if we can imrpove her symptoms. 04/25/2011 Appointment: Shahida Manzo WPtel: [phone] Other 04/25/2011 Patient Education: Patient Medication Summary Completed 04/25/2011 Referral: Matthew Dai Referral Appointment Requested Referral: Matthew Dai Information faxed to Dr. Dai. Their office to book. Patient informed. Completed Instructions Comment . Abdominal pain/Diverticulitis - pt sent for outpatient IV fluids, and 1 dose of IV flagyl - rx for antibiotic sent to pt's pharmacy - pt advised to avoid seeds, nuts, popcorn, or any other food which has been proven to upset the pt's stomach. Pt is to notify clinic if symptoms do not improve, if they worsen, or with any questions or concerns. Esophageal Reflux - the patient has been counseled against excessive intake of caffeine, spicy foods, peppermint, and cinnamon - all of which can exacerbate esophageal reflux. The patient is to take medications as prescribed and call the office if the symptoms are not improving. . Sinusitis - Pt has acute infection - pain in face, maxillary region, Pt informed to use decongestant, RX given to patient, sinus rinses also recommended. Call if symptoms do not show improvement. Rocephin injection today in the office Allergies - chronic - recommended pt to use allergy medication as prescribed. Pt has been counseled as to the appropriate use of the medication. Pt to call if allergy symptoms are not controlled with the medication. If using nasal spray, instructions as follows: Nasal spray- use twice daily, one spray per nostril twice daily, after 30 minutes, rinse out nose with saline spray.. Use opposite hand per nostril to spray in the nasal steroid allergy spray. TAPER OFF OF CYMBALTA-TAKE EVERY OTHER DAY X 7 DOSES THEN STOP START LEXAPRO 1/2 TAB DAILY X 10 DAYS THEN INCREASE TO A FULL TAB DAILY . Hypertension - elevated today but didn't take medication, otherwise well controlled - continue with current medications, continue with no added salt diet. Pt has been encouraged to exercise daily. The pt has been advised to call the office if there are any acute concerns about change in blood pressure readings at home. Hypothyroidism - pt with chronic hypothyroidism, continue with current medication, will monitor pt to signs or symptoms of lack of adequate supplementation. Pt is to continue with current dose of medication unless directed otherwise. Check labs at regular intervals wither q 3 months or q 6 months based on previous levels of control. Chronic Depression and anxiety - the pt has symptoms of chronic anxiety and depression that have NOT BEEN well controlled since the last office visit. The pt has expected periods of exacerbation with abatement of the symptoms with change in situational exposure. CROSS TAPER CYMBALTA TO LEXAPRO Allergies - chronic - recommended pt to use allergy medication as prescribed. Pt has been counseled as to the appropriate use of the medication. Pt to call if allergy symptoms are not controlled with the medication. If using nasal spray, instructions as follows: Nasal spray- use twice daily, one spray per nostril twice daily, after 30 minutes, rinse out nose with saline spray.. Use opposite hand per nostril to spray in the nasal steroid allergy spray. KENALOG INJECTION TODAY IN THE OFFICE Sleep apnea-patient needs new CPAP-will contact [facility] patient Pt reports that she uses her CPAP and feels like she gets benefit from use of her CPAP with improved energy. TAPER OFF OF CYMBALTA-TAKE EVERY OTHER DAY X 7 DOSES THEN STOP START LEXAPRO 1/2 TAB DAILY X 10 DAYS THEN INCREASE TO A FULL TAB DAILY . Hypertension - elevated today but didn't take medication, otherwise well controlled - continue with current medications, continue with no added salt diet. Pt has been encouraged to exercise daily. The pt has been advised to call the office if there are any acute concerns about change in blood pressure readings at home. Hypothyroidism - pt with chronic hypothyroidism, continue with current medication, will monitor pt to signs or symptoms of lack of adequate supplementation. Pt is to continue with current dose of medication unless directed otherwise. Check labs at regular intervals wither q 3 months or q 6 months based on previous levels of control. Chronic Depression and anxiety - the pt has symptoms of chronic anxiety and depression that have NOT BEEN well controlled since the last office visit. The pt has expected periods of exacerbation with abatement of the symptoms with change in situational exposure. CROSS TAPER CYMBALTA TO LEXAPRO Allergies - chronic - recommended pt to use allergy medication as prescribed. Pt has been counseled as to the appropriate use of the medication. Pt to call if allergy symptoms are not controlled with the medication. If using nasal spray, instructions as follows: Nasal spray- use twice daily, one spray per nostril twice daily, after 30 minutes, rinse out nose with saline spray.. Use opposite hand per nostril to spray in the nasal steroid allergy spray. KENALOG INJECTION TODAY IN THE OFFICE TAPER OFF OF CYMBALTA-TAKE EVERY OTHER DAY X 7 DOSES THEN STOP START LEXAPRO 1/2 TAB DAILY X 10 DAYS THEN INCREASE TO A FULL TAB DAILY . Hypertension - elevated today but didn't take medication, otherwise well controlled - continue with current medications, continue with no added salt diet. Pt has been encouraged to exercise daily. The pt has been advised to call the office if there are any acute concerns about change in blood pressure readings at home. Hypothyroidism - pt with chronic hypothyroidism, continue with current medication, will monitor pt to signs or symptoms of lack of adequate supplementation. Pt is to continue with current dose of medication unless directed otherwise. Check labs at regular intervals wither q 3 months or q 6 months based on previous levels of control. Chronic Depression and anxiety - the pt has symptoms of chronic anxiety and depression that have NOT BEEN well controlled since the last office visit. The pt has expected periods of exacerbation with abatement of the symptoms with change in situational exposure. CROSS TAPER CYMBALTA TO LEXAPRO Allergies - chronic - recommended pt to use allergy medication as prescribed. Pt has been counseled as to the appropriate use of the medication. Pt to call if allergy symptoms are not controlled with the medication. If using nasal spray, instructions as follows: Nasal spray- use twice daily, one spray per nostril twice daily, after 30 minutes, rinse out nose with saline spray.. Use opposite hand per nostril to spray in the nasal steroid allergy spray. KENALOG INJECTION TODAY IN THE OFFICE Sleep apnea-patient needs new CPAP-will contact [facility] patient Pt reports that she uses her CPAP and feels like she gets benefit from use of her CPAP with improved energy. TAPER OFF OF CYMBALTA-TAKE EVERY OTHER DAY X 7 DOSES THEN STOP START LEXAPRO 1/2 TAB DAILY X 10 DAYS THEN INCREASE TO A FULL TAB DAILY . Hypertension - elevated today but didn't take medication, otherwise well controlled - continue with current medications, continue with no added salt diet. Pt has been encouraged to exercise daily. The pt has been advised to call the office if there are any acute concerns about change in blood pressure readings at home. Hypothyroidism - pt with chronic hypothyroidism, continue with current medication, will monitor pt to signs or symptoms of lack of adequate supplementation. Pt is to continue with current dose of medication unless directed otherwise. Check labs at regular intervals wither q 3 months or q 6 months based on previous levels of control. Chronic Depression and anxiety - the pt has symptoms of chronic anxiety and depression that have NOT BEEN well controlled since the last office visit. The pt has expected periods of exacerbation with abatement of the symptoms with change in situational exposure. CROSS TAPER CYMBALTA TO LEXAPRO Allergies - chronic - recommended pt to use allergy medication as prescribed. Pt has been counseled as to the appropriate use of the medication. Pt to call if allergy symptoms are not controlled with the medication. If using nasal spray, instructions as follows: Nasal spray- use twice daily, one spray per nostril twice daily, after 30 minutes, rinse out nose with saline spray.. Use opposite hand per nostril to spray in the nasal steroid allergy spray. KENALOG INJECTION TODAY IN THE OFFICE Sleep apnea-patient needs new CPAP-will contact [facility] LOSARTAN 50MG DAILY MONITOR BLOOD PRESSURE AND PULSE TAMIFLU 75MG DAILY X 10 DAYS DUE TO FLU EXPOSURE RETURN FOR FASTING LABS . Hypertension - uncontrolled - the patient's medications have been modified as documented in the visit note. The patient has been counseled to cut back on salt in diet for a no added salt diet, low fat diet, start an exercise program with low weight bearing exercises and higher aerobic activity for heart health. The patient is to check blood pressure readings as an outpatient and either fax, call, or email the readings to the office next week for practitioner to review. The pt is to call for acute concerns. Hyperlipidemia-check fasting labs Nvlkeblldppauj-nscxqxs-oqvzk labs LOSARTAN 50MG DAILY MONITOR BLOOD PRESSURE AND PULSE TAMIFLU 75MG DAILY X 10 DAYS DUE TO FLU EXPOSURE RETURN FOR FASTING LABS . Hypertension - uncontrolled - the patient's medications have been modified as documented in the visit note. The patient has been counseled to cut back on salt in diet for a no added salt diet, low fat diet, start an exercise program with low weight bearing exercises and higher aerobic activity for heart health. The patient is to check blood pressure readings as an outpatient and either fax, call, or email the readings to the office next week for practitioner to review. The pt is to call for acute concerns. Hyperlipidemia-check fasting labs Ietaawzxiksxwz-ibarjmz-yppvs labs . Sinusitis - Pt has acute infection - pain in face, maxillary region, Pt informed to use decongestant, RX given to patient, sinus rinses also recommended. Call if symptoms do not show improvement. . Skin tear of left and right lower leg-bleeding resolved-cleansed both areas and approximated skin flap and steri strip x 1 to each wound placed and covered with non adherent dressing and wrapped in gauze-instructed patient to keep dressing on until tomorrow. Leave steri strips on until they come off on their own. Call for any redness, drainage, warmth, or uncontrolled bleeding. Patient verbalized understandig of plan. . Sinusitis - Pt has acute infection - pain in face, maxillary region, Pt informed to use decongestant, RX given to patient, sinus rinses also recommended. Call if symptoms do not show improvement. URI - Pt advised to increase fluids, vitamin C. Discussed natural and expected course of this diagnosis and need to alert me if symptoms do not follow expected course, or if any worse. RX sent to patient's pharmacy. Allergies - chronic - recommended pt to use allergy medication as prescribed. Pt has been counseled as to the appropriate use of the medication. Pt to call if allergy symptoms are not controlled with the medication. If using nasal spray, instructions as follows: Nasal spray- use twice daily, one spray per nostril twice daily, after 30 minutes, rinse out nose with saline spray.. Use opposite hand per nostril to spray in the nasal steroid allergy spray. . Medicare Exam - today we discussed the patients past history, immunizations, preventative exams/evaluations - colonoscopy, fecal occult blood testing, routine labs for renal function, glucose, cholesterol, osteoporosis evaluations, cardiovascular testing and cancer screenings. We have also discussed mental health and the signs/symptoms of depression. The patient was advised of home safety evaluations and the need to make sure that as the aging process continues, we need to be aware of different ways to make the home a safer place to reside. The patient has also been counseled that exercise is necessary - and of utmost importance as we age to help decrease fall risk and to maintain independece in the home. Today we discussed the need for the patient to create paperwork for Advanced directives as well as for the patient to provide this office with a copy of her DOPA paperwork for health care surrogate. hold the lipitor x 2 weeks - , then restart at 1/2 pill three days a week - do this for two weeks then increase to 1/2 pill daily x 1 week then 1/2 pill m/w/f and 1 full pill tues/thurs/sat/sun - do this x 1 week then if no diarrhea - then restart the lipitor at 10mg daily thereafter - if the Diarrhea - restarts at any point in this process -call the office. Accuflora 14 billion units - this is a good probiotic. . Diarrhea - hold the lipitor x 2 weeks - , then restart at 1/2 pill three days a week - do this for two weeks then increase to 1/2 pill daily x 1 week then 1/2 pill m/w/f and 1 full pill tues/th/sat/sun - do this x 1 week then if no diarrhea - then restart the lipitor at 10mg daily thereafter - if the Diarrhea - restarts at any point in this process -call the office. Accuflora 14 billion units - this is a good probiotic. . Paronychia-continue abx as previously prescribed. ROCEPHIN injection today in the office. Continue using bactroban ointment as well. Call if redness, swelling, warmth does not resolve, or if any worse Depression - uncontrolled - Pt has been counseled about the diagnosis of depression, the potential causes, and risks associated with the diagnosis. The pt denies suicidal ideation, or plans. The patient has been counseled about treatment options, and understands the risks associated with treatment of depression, as well as the risks associated with NOT treating the depression. I believe the pt will benefit from medical intervention and an antidepressant has been appropriately prescribed for this patient. ADD ABILIFY 2MG AT BEDTIME RESTART GENTAMICIN EYE DROPS DIRECTED Throw out your current mascara and eye makeup. Conjunctivitis - rx for eye drops/lube sent electronically to the patient's pharmacy. The patient has been instructed to cleanse affected eye with warm washcloth, then place medication into affected eye four times daily. Thrush-refill nystatin-call if symptoms do not resolve . sore, Cellulitis - The patient was instructed in appropriate wound care. The patient was instructed to use the antibiotic ointment as per RX. The patient is to call for any change in symptoms, increase in size of the lesion, increase in pain, worsening redness, warmth, discharge. . UTI - pt with positive urinalysis - culture sent if appropriate. Antibiotic electronically prescribed to pt's pharmacy of choice. Pt to call if symptoms do not improve. UTI - pt with positive urinalysis - culture sent if appropriate. Antibiotic electronically prescribed to pt's pharmacy of choice. Pt to call if symptoms do not improve. Cultrelle- probiotic to prevent diarrhea while on the antibiotic. Pt to be on levaquin x 5 days. Labs to be drawn tomorrow: TSH, Free T4, CMP Fatigue and Hypothyroidism - pt needed medications changed three months ago - perhaps that is part of her fatigue. Needs labs. . DX sinusitis - discussed expected course with the patient, pt advised to call for worsening symptoms, or lack of improvement on prescribed treatment course. Recommended sinus rinses, samples of nasonex given as well. Allergies - Advised avoidance of allergens if possible, we discussed natural and expected course of this diagnosis and need to alert me if symtpoms do not follow expected course, or if any worse. Pt given samples and script for nasonex. Kenalog injection in the office today as well. Samples of singulair also provided for patient. Cough-refill cough med . Acute Migraine - pt has chronic migraine headaches, but comes into clinic today complaining of intractable migraine headache symptoms. I have recommended changes to the chronic symptoms management and the pt has been given the following acute treatment in clinic today: . Wound Instructions - Pt was instructed to keep the wound clean, wash with antibacterial soap, use triple antibiotic ointment, call if redness, pustular drainage, or any other acute concerns. . Hypertension - uncontrolled - the patient's medications have been modified as documented in the visit note. The patient has been counseled to cut back on salt in diet for a no added salt diet, low fat diet, start an exercise program with low weight bearing exercises and higher aerobic activity for heart health. The patient is to check blood pressure readings as an outpatient and either fax, call, or email the readings to the office next week for practicioner to review. The pt is to call for acute concerns. Sinusitis - Pt has acute infection - pain in face, maxillary region, Pt informed to use decongestant, RX given to patient, sinus rinses also recommended. Call if symptoms do not show improvement. . Arthritis- occasionally uncontrolled symptoms- recommend pt to take antiinflammatory as directed for pain control. Use tylenol for break through pain symptoms. trintellix - 10mg one pill daily in the morning. stop lexapro and start on the trintellix liquid diet x 2 days, call on to let me know it if is not better - will prescribe a medication called flagyl . Abdominal pain - liquid diet x 2 days, call on to let me know it if is not better - will prescribe a medication called flagy Depression - uncontrolled - Pt has been counseled about the diagnosis of depression, the potential causes, and risks associated with the diagnosis. The pt denies suicidal ideation, or plans. The patient has been counseled about treatment options, and understands the risks associated with treatment of depression, as well as the risks associated with NOT treating the depression. I believe the pt will benefit from medical intervention and an antidepressant has been appropriately prescribed for this patient. trintellix - 10mg one pill daily in the morning. stop lexapro and start on the trintellix Skin lesion - rx for efudex - pt instructed on use . Wound Instructions - Pt was instructed to keep the wound clean, wash with antibacterial soap, use triple antibiotic ointment, call if redness, pustular drainage, or any other acute concerns. Depression - uncontrolled - Pt has been counseled about the diagnosis of depression, the potential causes, and risks associated with the diagnosis. The pt denies suicidal ideation, or plans. The patient has been counseled about treatment options, and understands the risks associated with treatment of depression, as well as the risks associated with NOT treating the depression. I believe the pt will benefit from medical intervention and an antidepressant has been appropriately prescribed for this patient. . Wound Instructions - Pt was instructed to keep the wound clean, wash with antibacterial soap, use triple antibiotic ointment, call if redness, pustular drainage, or any other acute concerns. Depression - uncontrolled - Pt has been counseled about the diagnosis of depression, the potential causes, and risks associated with the diagnosis. The pt denies suicidal ideation, or plans. The patient has been counseled about treatment options, and understands the risks associated with treatment of depression, as well as the risks associated with NOT treating the depression. I believe the pt will benefit from medical intervention and an antidepressant has been appropriately prescribed for this patient. . Paronychia/Cellulitis - continue with oral antibiotics as previously directed, return to clinic as previously directed, call for acute change in symptoms, worsening redness, warmth, discharge. . Medicare Exam - today we discussed the patients past history, immunizations, preventative exams/evaluations - colonoscopy, fecal occult blood testing, routine labs for renal function, glucose, cholesterol, osteoporosis evaluations, cardiovascular testing and cancer screenings. We have also discussed mental health and the signs/symptoms of depression. The patient was advised of home safety evaluations and the need to make sure that as the aging process continues, we need to be aware of different ways to make the home a safer place to reside. The patient has also been counseled that exercise is necessary - and of utmost importance as we age to help decrease fall risk and to maintain independence in the home. Today we discussed the need for the patient to create paperwork for Advanced directives as well as for the patient to provide this office with a copy of her DOPA paperwork for health care surrogate. Sinusitis - Pt has acute infection - pain in face, maxillary region, Pt informed to use decongestant, RX given to patient, sinus rinses also recommended. Call if symptoms do not show improvement. Hypothyroidism - pt with chronic hypothyroidism, continue with current medication, will monitor pt to signs or symptoms of lack of adequate supplementation. Pt is to continue with current dose of medication unless directed otherwise. Check labs at regular intervals wither q 3 months or q 6 months based on previous levels of control. TAKE A PROBIOTIC TWICE DAILY WHILE ON THE ANTIBIOTIC . Sinusitis - chronic - pain in face, maxillary region, Pt informed to use decongestant, RX given to patient, sinus rinses also recommended. Call if symptoms do not show improvement. Gentamicin nasal spray to [facility] Increase prilosec to twice daily . Sinusitis - Pt has acute infection - pain in face, maxillary region, Pt informed to use decongestant, RX given to patient, sinus rinses also recommended. Call if symptoms do not show improvement. Esophageal Reflux - the patient has been counseled against excessive intake of caffeine, spicy foods, peppermint, and cinnamon - all of which can exacerbate esophageal reflux. The patient is to take medications as prescribed and call the office if the symptoms are not improving. . Skin tears, Cellulitis - The patient was instructed in appropriate wound care. The patient was instructed to use the antibiotic ointment as per RX. The patient is to call for any change in symptoms, increase in size of the lesion, increase in pain, worsening redness, warmth, discharge. Wound Instructions - Pt was instructed to keep the wound clean, wash with antibacterial soap, use triple antibiotic ointment, call if redness, pustular drainage, or any other acute concerns. . Hypertension - well controlled - continue with current medications, continue with no added salt diet. Pt has been encouraged to exercise daily. The pt has been advised to call the office if there are any acute concerns about change in blood pressure readings at home. Sleep apnea- not wearing current mask due to uncomfortable fit, recommended pt to get new mask fitted lindsay. Thrush- treating with diflucan . Tinea-discussed natural and expected course of this diagnosis and to alert me if symtpoms do not follow expect course, or if any worse. RX sent to patient's pharmacy. Keep areas dry Exposure to scabies-RX sent to [facility] pharmacy. rocephin/kenalog . Sinusitis - Pt has acute infection - pain in face, maxillary region, Pt informed to use decongestant, RX given to patient, sinus rinses also recommended. Call if symptoms do not show improvement. . Sinusitis - Pt has acute infection - pain in face, maxillary region, Pt informed to use decongestant, RX given to patient, sinus rinses also recommended. Call if symptoms do not show improvement. Urinary frequency -UA negative-monitor symptoms Chronic Pain Syndrome - pt has chronic pain - has been maintained on current medications, has not sought out other medications, only uses PRN pain medications as directed, and understands the consequences of over-medication. Edarbi 40mg daily Labs now EKG . Hypertension - uncontrolled - the patient's medications have been modified as documented in the visit note. The patient has been counseled to cut back on salt in diet for a no added salt diet, low fat diet, start an exercise program with low weight bearing exercises and higher aerobic activity for heart health. The patient is to check blood pressure readings as an outpatient and either fax, call, or email the readings to the office next week for practitioner to review. The pt is to call for acute concerns. Discussed with Dr Goldman-patient to go to hospital for EKG, labs including cardiac enzymes Start edbarbi 40mg daily-dose given in the office today . URI - Pt advised to increase fluids, vitamin C. Discussed natural and expected course of this diagnosis and need to alert me if symptoms do not follow expected course, or if any worse. RX sent to patient's pharmacy. Allergies - chronic - recommended pt to use allergy medication as prescribed. Pt has been counseled as to the appropriate use of the medication. Pt to call if allergy symptoms are not controlled with the medication. If using nasal spray, instructions as follows: Nasal spray- use twice daily, one spray per nostril twice daily, after 30 minutes, rinse out nose with saline spray.. Use opposite hand per nostril to spray in the nasal steroid allergy spray. . Abrasion right leg-RX for keflex Headache-much improved-monitor and call if does not resolve Allergies-continue medications and call if symptoms do not improve, or if any worse. Add bystolic 5mg with the 10mg daily - come back in 1 week and call if blood pressure remains elevated . . HTN-improved today-no change in medications Tinea-start clotrimazole and diflucan Elevated ALT-check labs today to monitor . Hypertension - well controlled - continue with current medications, continue with no added salt diet. Pt has been encouraged to exercise daily. The pt has been advised to call the office if there are any acute concerns about change in blood pressure readings at home. Kwnuevk-fjpqaicrhcp-akxzgvzl duragesic patch-appt with Dr Ortiz for pain management return monday for blood pressure check increase losartan to 100mg daily . Hypertension - uncontrolled - the patient's medications have been modified as documented in the visit note. The patient has been counseled to cut back on salt in diet for a no added salt diet, low fat diet, start an exercise program with low weight bearing exercises and higher aerobic activity for heart health. The patient is to check blood pressure readings as an outpatient and either fax, call, or email the readings to the office next week for practitioner to review. The pt is to call for acute concerns. increase bystolic to 15mg daily.. Hypertension - uncontrolled - the patient's medications have been modified as documented in the visit note. The patient has been counseled to cut back on salt in diet for a no added salt diet, low fat diet, start an exercise program with low weight bearing exercises and higher aerobic activity for heart health. The patient is to check blood pressure readings as an outpatient and either fax, call, or email the readings to the office next week for practicioner to review. The pt is to call for acute concerns. Arthritis- occasionally uncontrolled symptoms- recommend pt to use topical antiinflammatory as directed for pain control. Use tylenol for break through pain symptoms. Hypothyroidism - pt with chronic hypothyroidism, continue with current medication, will monitor pt to signs or symptoms of lack of adequate supplementation. Pt is to continue with current dose of medication unless directed otherwise. Check labs at regular intervals wither q 3 months or q 6 months based on previous levels of control. . Conjunctivitis - rx for eye drops/lube sent electronically to the patient's pharmacy. The patient has been instructed to cleanse affected eye with warm washcloth, then place medication into affected eye four times daily. KENALOG PROBIOTICS BID . Sinusitis - Pt has acute infection - pain in face, maxillary region, Pt informed to use decongestant, RX given to patient, sinus rinses also recommended. Call if symptoms do not show improvement. Gastroenteritis - discussed need to stay away from milk products while acutely ill with diarrhea and nausea and emesis as it may worsen the symptoms. Liquids initially until the nausea improves, then recommend to advance to bland diet for 1 day, then advance as tolerated. Call if symptoms not improved. Neck pain-will schedule MRI neck-let us know when you are available Do not start the diflucan until you are finished with the cipro . Sinusitis - Pt has acute infection - pain in face, maxillary region, Pt informed to use decongestant, RX given to patient, sinus rinses also recommended. Call if symptoms do not show improvement. Dysuria-trace leukocytes-urine sent for cultlure Thrush-symptoms returning-refill diflucan to start after abx completed History of herpes-RX for acyclovir-instructed pt to make appt if symptoms do not resolve . Conjunctivitis - rx for eye drops/lube sent electronically to the patient's pharmacy. The patient has been instructed to cleanse affected eye with warm washcloth, then place medication into affected eye four times daily. Rocephin and Kenalog . Arthritis- occasionally uncontrolled symptoms- recommend pt to take antiinflammatory as directed for pain control. Sinusitis - Pt has acute infection - pain in face, maxillary region, Pt informed to use decongestant, RX given to patient, sinus rinses also recommended. Call if symptoms do not show improvement.. Allergies - chronic - recommended pt to use allergy medication as prescribed. Pt has been counseled as to the appropriate use of the medication. Pt to call if allergy symptoms are not controlled with the medication. If using nasal spray, instructions as follows: Nasal spray- use twice daily, one spray per nostril twice daily, after 30 minutes, rinse out nose with saline spray.. Use opposite hand per nostril to spray in the nasal steroid allergy spray. Low back pain- chronic-symptoms worsening-history of spinal surgery-consider MRI lumbar spine with contrast if symptoms worsen-patient sees specialist in and will need MRI before appt. The pt is to use prn antiinflammatories to manage acute pain. The patient is to call the office if the pain is worsening or does not improve. Rocephin and Kenalog . Arthritis- occasionally uncontrolled symptoms- recommend pt to take antiinflammatory as directed for pain control. Sinusitis - Pt has acute infection - pain in face, maxillary region, Pt informed to use decongestant, RX given to patient, sinus rinses also recommended. Call if symptoms do not show improvement.. Allergies - chronic - recommended pt to use allergy medication as prescribed. Pt has been counseled as to the appropriate use of the medication. Pt to call if allergy symptoms are not controlled with the medication. If using nasal spray, instructions as follows: Nasal spray- use twice daily, one spray per nostril twice daily, after 30 minutes, rinse out nose with saline spray.. Use opposite hand per nostril to spray in the nasal steroid allergy spray. Low back pain- chronic-symptoms worsening-history of spinal surgery-consider MRI lumbar spine with contrast if symptoms worsen-patient sees specialist in and will need MRI before appt. The pt is to use prn antiinflammatories to manage acute pain. The patient is to call the office if the pain is worsening or does not improve. Sleep apnea-patient continues to benefit from CPAP-improved sleep, less fatigue . Trigger Points - Injected trigger points cervical muscles today, pt given post-injection instructions, signs and symptoms for which to call the office. Pt to use heat to the muscles today, and take an anti- inflammatory today unless otherwise contraindicated by renal function or other disease process. . Sinusitis - Pt has acute infection - pain in face, maxillary region, Pt informed to use decongestant, RX given to patient, sinus rinses also recommended. Call if symptoms do not show improvement. Cough-tessalon pearles . Abdominal pain - ultrasound tomorrow AM nothing to eat before the ultrasound from 11pm tonight bland diet. Nausea - worse with fatty foods, recommended low fat/bland diet, call if symptoms worsening. . Cellulitis - The patient was instructed in appropriate wound care. The patient was instructed to use the antibiotic ointment as per RX. The patient is to call for any change in symptoms, increase in size of the lesion, increase in pain. . Hypertension - well controlled - continue with current medications, continue with no added salt diet. Pt has been encouraged to exercise daily. The pt has been advised to call the office if there are any acute concerns about change in blood pressure readings at home. Depression - uncontrolled - Pt has been counseled about the diagnosis of depression, the potential causes, and risks associated with the diagnosis. The pt denies suicidal ideation, or plans. The patient has been counseled about treatment options, and understands the risks associated with treatment of depression, as well as the risks associated with NOT treating the depression. I believe the pt will benefit from medical intervention and an antidepressant has been appropriately prescribed for this patient. START ON THE ABILIFY 2 mg AT BEDTIME. Irritable bowel syndrome - rx for betntyl- take three times daily, sheould help with the cramoing discomfort. Benefiber for fiber in diet to bulk up the stools. . Cellulitis -left forearm -slightly improved- continue with oral abx- start using warm moist compresses as directed -return in 2 weeks for recheck. Increase Synthroid to 100mcg po daily. Repeat labs in 3 months. Samples of celebrex 200mg po daily provided. Call next week and let us know if you want a prescription for it. Cut your HCTZ in half and take half a tab daily. Carafate 1gm four times times daily (dissolve in water) Stop zyrtec. Start allergra daily. Monitor your blood pressure at home and record. Bring in your readings to your next appointment, or as directed. Call for chest pain, shortness of breath, headaches, or other concerns.. Esophageal Reflux - the patient has been counseled against excessive intake of caffiene, spicy foods, peppermint, and cinnamon - all of which can exacerbate esophageal reflux. The patient is to take medications as prescribed and call the office if the symptoms are not improving. Hypothyroidism - pt with chronic hypothyroidism, medication changes today, will monitor pt to signs or symptoms of lack of adequate supplementation. Pt is to continue with current dose of medication unless directed otherwise. Check labs at regular intervals wither q 3 months or q 6 months based on previous levels of control. Allergies - chronic - recommended pt to use allergy medication as prescribed. Pt has been counseled as the the appropriate use of the medication. Pt to call if allergy symptoms are not controlled with the medication. If using nasal spray, instructions as follows: Nasal spray- use twice daily, one spray per nostril twice daily, after 30 minutes, rinse out nose with saline spray.. Use opposite hand per nostril to spray in the nasal steroid allergy spray. Arthritis- occasionally uncontrolled symptoms- recommend pt to take antiinflammatory as directed for pain control. Samples of celebrex 200mg po daily-stop aleve Use tylenol for break through pain symptoms. Continue to monitor blood pressure and bring in readings for review. We will schedule you for a renal artery ultrasound. Flu shot given today in the office. I called in your xanax and aprazolam to [facility]. . Hypertension - continue with current medications, continue with no added salt diet. Pt has been encouraged to exercise daily. Refill bystolic-also sent rX. Will obtain renal artery ultrasound due to patient's resistent hypertension-she is currently on 3 medications for blood pressure and still has some elevated blood pressures-see scanned document. The pt has been advised to call the office if there are any acute concerns about change in blood pressure readings at home. Anxiety - fairly well controlled symptoms of anxiety (tachycardia, overwhelming sensations, stress, insomnia, etc). Continue with current treatment plan. Refill xanax. Pt is aware of the risks and benefits of treament with the above medications. Insomnia - discussed diet, exercise, caffeine intake, and other sleeping habits. The patient has been counseled to cut back on caffeine, start dimming lights at night to produce more natural environment and help stimulate the brain to start releasing melatonin. Refill ambien. Influenza vaccine today in the office. . URI - Pt advised to increase fluids, vitamin C. Discussed natural and expected course of this diagnosis and need to alert me if symptoms do not follow expected course, or if any worse. RX sent to patient's pharmacy. Sinusitis - Pt has acute infection - pain in face, maxillary region, Pt informed to use decongestant, RX given to patient, sinus rinses also recommended. Call if symptoms do not show improvement. phenergan with codeine cough syrup called in to pharmacy. . Anxiety - the patient has uncontrolled anxiety and will benefit from an SSRI on a daily basis to attempt control of the symptoms of anxiety (tachycardia, overwhelming sensations, stress, insomnia, etc). I also believe that the patient will benefit from very low dose of prn benzodiazepine. Pt is aware of the risks and benefits of treatment with the above medications. Hypertension - uncontrolled - the patient's medications have been modified as documented in the visit note. The patient has been counseled to cut back on salt in diet for a no added salt diet, low fat diet, start an exercise program with low weight bearing exercises and higher aerobic activity for heart health. The patient is to check blood pressure readings as an outpatient and either fax, call, or email the readings to the office next week for practitioner to review. The pt is to call for acute concerns. . Hypertension - fairlywell controlled - due to extreme fatigue i have instructed Cecelia to stop the toprol and start bystolic 10mg daily. Continue with no added salt diet. Pt has been encouraged to exercise daily. The pt has been advised to call the office if there are any acute concerns about change in blood pressure readings at home. Otherwise, return to clinic in 1 month for re-evaluation. Depression-symptoms are slightly improved on cymbalta but not completely controlled. Plan to add deplin to see if we can get better management of overall depressive symptoms. Patient feels safe at home, no suicidal ideation. Plan to see patient in 1 month for follow up. Fatigue-worsening over the past several months. Plan to stop patient's metoprolol as I suspect this is a causative agent in her overwhelming fatigue. Will switch her to bystolic to see if we can imrpove her symptoms. Doctor's eval of the patient - I personally discussed the patient with the nurse practicioner. I have reviewed the patient's chart, I have reviewed the patient's past medical history, problem list, medication list, and personal history. I agree with the documentation by the nurse practicioner in the HPI, physical exam, and the assessment and plan. I discussed the plan and helped formulate the plan with the nurse practicioner. . Hypertension - fairlywell controlled - due to extreme fatigue i have instructed Cecelia to stop the toprol and start bystolic 10mg daily. Continue with no added salt diet. Pt has been encouraged to exercise daily. The pt has been advised to call the office if there are any acute concerns about change in blood pressure readings at home. Otherwise, return to clinic in 1 month for re-evaluation. Depression-symptoms are slightly improved on cymbalta but not completely controlled. Plan to add deplin to see if we can get better management of overall depressive symptoms. Patient feels safe at home, no suicidal ideation. Plan to see patient in 1 month for follow up. Fatigue-worsening over the past several months. Plan to stop patient's metoprolol as I suspect this is a causative agent in her overwhelming fatigue. Will switch her to bystolic to see if we can imrpove her symptoms. . Sinusitis - Pt has acute infection - pain in face, maxillary region, Pt informed to use decongestant, RX given to patient, sinus rinses also recommended. Call if symptoms do not show improvement. Chronic back pain-refill hydrocodone for prn breakthrough pain use. . Diarrhea - recommended bland diet, low fat diet, start on probiotic, and rehydrate with gatorade-like product. Pt to call if feeling worse, diarrhea becomes bloody, or does not improve with above recommendations. Pt to call for acute worsening of stomach upset or stomach pain. Gastroenteritis - discussed need to stay away from milk products while acutely ill with diarrhea and nausea and emesis as it may worsen the symptoms. Liquids initially until the nausea improves, then recommend to advance to bland diet for 1 day, then advance as tolerated. Call if symptoms not improved. Allergies - chronic - recommended pt to use allergy medication as prescribed. Pt has been counseled as to the appropriate use of the medication. Pt to call if allergy symptoms are not controlled with the medication. If using nasal spray, instructions as follows: Nasal spray- use twice daily, one spray per nostril twice daily, after 30 minutes, rinse out nose with saline spray.. Use opposite hand per nostril to spray in the nasal steroid allergy spray. Sinusitis - Pt has acute infection - pain in face, maxillary region, Pt informed to use decongestant, RX given to patient, sinus rinses also recommended. Call if symptoms do not show improvement. TRAZODONE REPLACES THE AMBIEN - START WITH 1/2 PILL AT BEDTIME, MAY GO UP TO 1 PILL IF NEEDED. START ON CARAFATE NEEDED FOR REFLUX SYMPTOMS START CEFDINIR FOR ANTIBIOTIC FOR SINUSITIS/BRONCHITIS START PREDNISONE FOR SYMPTOMS SINUSITIS/DYSPNEA.. Sinusitis - Pt has acute infection - pain in face, maxillary region, Pt informed to use decongestant, RX given to patient, sinus rinses also recommended. Call if symptoms do not show improvement. Bronchitis - acute case of bronchitis identified. Pt has been given antibiotics, breathing treatments as appropriate, and pt has been instructed to call if symptoms are not improved, or if symptoms acutely worsen. Esophageal Reflux - the patient has been counseled against excessive intake of caffiene, spicy foods, peppermint, and cinnamon - all of which can exacerbate esophageal reflux. The patient is to take medications as prescribed and call the office if the symptoms are not improving. TRAZODONE REPLACES THE AMBIEN - START WITH 1/2 PILL AT BEDTIME, MAY GO UP TO 1 PILL IF NEEDED. START ON CARAFATE NEEDED FOR REFLUX SYMPTOMS START CEFDINIR FOR ANTIBIOTIC FOR SINUSITIS/BRONCHITIS START PREDNISONE FOR SYMPTOMS SINUSITIS/DYSPNEA. . Hypertension - well controlled - continue with current medications, continue with no added salt diet. Pt has been encouraged to exercise daily. The pt has been advised to call the office if there are any acute concerns about change in blood pressure readings at home. Sinusitis - Pt has acute infection - pain in face, maxillary region, Pt informed to use decongestant, RX given to patient, sinus rinses also recommended. Call if symptoms do not show improvement. Cervicalgia - recommended pt to follow up with specialist [facility] - she needs to pursue treatment. Anxietly - medications unchanged. colonoscopy with dr. dai . Pt complains of a splinter in her left hand, near the thumb. Pt states that she noticed a week ago and has been trying to get it out. Pt states that she has used her fingernail, tweasers, and a needle with no success. Pt has a scab in place. Scab removed, pus extruded, splinter removed. Pt given antibiotic shot and oral antibiotic and ointment have been sent to the pharmacy. Pt is to notify clinic if symptoms do not improve, if they worsen, or with other concerns. . Pt complains of a splinter in her left hand, near the thumb. Pt states that she noticed a week ago and has been trying to get it out. Pt states that she has used her fingernail, tweasers, and a needle with no success. Pt has a scab in place. Scab removed, pus extruded, splinter removed. Pt given antibiotic shot and oral antibiotic and ointment have been sent to the pharmacy. Pt is to notify clinic if symptoms do not improve, if they worsen, or with other concerns. . .Sinusitis - Pt has acute infection - pain in face, maxillary region, Pt informed to use decongestant, RX given to patient, sinus rinses also recommended. Recommend take start on probiotic while on antibiotics. Call if symptoms do not show improvement. Conjunctivitis - rx for eye drops/lube sent electronically to the patient's pharmacy. The patient has been instructed to cleanse affected eye with warm washcloth, then place medication into affected eye four times daily Pt leaving Monday for cruise, Scopolamine patch prescription sent to pharmacy per pt request. ROCEPHIN 500 MG IM AUGMENTIN PO 875 MG DAILY X 10 DAYS PREDNISONE PO 40 MG DAILY X 5 DAYS REFILL HYDROCODONE URINE SAMPLE . Sinusitis - Pt has acute infection - pain in face, maxillary region, Pt informed to use decongestant, RX given to patient, sinus rinses also recommended. Call if symptoms do not show improvement. Dysuria-culture urine
[2019-03-08] MEDS ORDERED: PROPOFOL INJECTION 50 ML IV ONE (09:04)
[2019-03-08] MEDS ORDERED: MIDAZOLAM 2 MG/2 ML (VERSED) VIAL ONE (09:05)
--- NOTE | 2019-03-08 09:08 | Pre-Op Note & Conscious Sedat ---
Pre-Operative Progress Note H&P Reviewed The H&P was reviewed, patient examined and no changes noted. Date H&P Reviewed: Mar 08, 2019 Time H&P Reviewed: 09:08 Conscious Sedation Pre-Proced ASA Score 2 For ASA 3 and 4: Consider anesthesia and medical clearance. Also, for patients with a history of failed moderate sedation consider anesthesia. Airway Lungs Heart ASA score ASA 1: a normal healthy patient ASA 2: a patient with a mild systemic disease (mid diabetes, controlled hypertension, obesity ASA 3: a patient with a severe systemic disease that limits activity (angina, COPD, prior Myocardial infarction) ASA 4: a patient with an incapacitating disease that is a constant threat to life (CHF, renal failure) ASA 5: a moribund patient not expected to survive 24 hrs. (ruptured aneurysm) ASA 6: a declared brain- patient whose organs are being harvested. For emergent operations, add the letter E after the classification Mallampati Classification Grade 3 Sedation Plan Analgesia, Amnesia, Plan communicated to team members, Discussed options with patient/fam, Discussed risks with patient/fam The patient is an appropriate candidate to undergo the planned procedure, sedation, and anesthesia. The patient immediately re-assessed prior to indication. FRANCINE LIN MD Mar 08, 2019 09:08
--- OUTSIDE RECORDS SUMMARY | 2019-03-08 09:13 | XMS REPORT | CCD ---
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 Name Role Phone PP Unavailable CCM Unavailable Summary Purpose Interface Exchange Insurance Providers Payer name Policy type / Coverage type Covered alliance party ID Effective Begin Date Effective End Date [employer] Medicare Part B [id number] Unknown Family history Son Diagnosis Age At Onset Crohn's disease Unknown Brother Diagnosis Age At Onset Cardiovascular disease Unknown Mother Diagnosis Age At Onset Hypertension Unknown Father Diagnosis Age At Onset Cardiovascular disease Unknown Social History Social History Element Codes Description Effective Dates Marital status Unknown 04/22/2011 Number of children Unknown 3 1 son -Crohns 04/22/[address]: 896704080 Nonsmoker 04/22/2011 Allergies, Adverse Reactions, Alerts Substance [...] Instructions mupirocin 2 % topical ointment RxNorm: 485750 1 Application TOP BID 02/20/2019 No Stop Date Active doxycycline hyclate 100 mg capsule RxNorm: 9644854 1 Capsule(s) PO BID 02/20/2019 03/01/2019 Active ceftriaxone 1 gram solution for injection RxNorm: 9743418 Inj 02/20/2019 02/20/2019 Inactive piroxicam 20 mg capsule RxNorm: 803849 TAKE ONE CAPSULE BY MOUTH DAILY 02/01/2019 05/31/2019 Active hydrochlorothiazide 25 mg tablet RxNorm: 703106 Tablet(s) TAKE ONE TABLET BY MOUTH DAILY 01/29/2019 10/25/2019 Active hydrocodone 10 mg-acetaminophen 325 mg tablet RxNorm: 036831 Tablet(s) PO TAKE ONE TO TWO TABLETS BY MOUTH EVERY 6 HOURS NEEDED FOR PAIN 01/17/2019 01/31/2019 Inactive trazodone 50 mg tablet RxNorm: 191455 TAKE ONE AND ONE-HALF (1 1/2) TABLETS BY MOUTH AT BEDTIME. MAY INCREASE TO 2 TABLETS AT BEDTIME NEEDED 12/13/2018 04/01/2019 Active losartan 100 mg tablet RxNorm: 042901 1 Tablet(s) PO daily 11/13/2018 05/11/2019 Active hydrocodone 10 mg-acetaminophen 325 mg tablet RxNorm: 696584 Tablet(s) PO TAKE ONE TO TWO TABLETS BY MOUTH EVERY 6 HOURS NEEDED FOR PAIN 11/13/2018 11/27/2018 Inactive Synthroid 112 mcg tablet RxNorm: 602961 1 Tablet(s) PO daily 11/01/2018 04/29/2019 Active Brand name only! Dosage change! Synthroid 112 mcg tablet RxNorm: 366724 1 Tablet(s) PO daily 11/01/2018 10/31/2018 Inactive Brand name only! Dosage change! losartan 50 mg tablet RxNorm: 523921 1 Tablet(s) PO daily 10/30/2018 11/12/2018 Inactive Tamiflu 75 mg capsule RxNorm: 678683 1 Capsule(s) PO daily 10/30/2018 11/08/2018 Inactive Synthroid 100 mcg tablet RxNorm: 641986 1 Tablet(s) PO daily 10/30/2018 10/31/2018 Inactive Brand name only! Lexapro 20 mg tablet RxNorm: 600148 TAKE ONE AND ONE-HALF TABLET BY MOUTH DAILY 10/23/2018 10/17/2019 Active alprazolam 0.25 mg tablet RxNorm: 856984 1 Tablet(s) PO TID as needed 10/10/2018 01/07/2019 Inactive polymyxin B sulfate 10,000 unit-trimethoprim 1 mg/mL eye drops RxNorm: 322741 2 Drop(s) ophthalmic (eye) QID 10/08/2018 10/14/2018 Inactive hydrocodone 10 mg-acetaminophen 325 mg tablet RxNorm: 504518 Tablet(s) PO TAKE ONE TO TWO TABLETS BY MOUTH EVERY 6 HOURS NEEDED FOR PAIN 09/11/2018 09/25/2018 Inactive piroxicam 20 mg capsule RxNorm: 911068 TAKE ONE CAPSULE BY MOUTH DAILY 08/09/2018 01/05/2019 Inactive trazodone 50 mg tablet RxNorm: 870154 TAKE ONE AND ONE-HALF (1 1/2) TABLET BY MOUTH AT BEDTIME. MAY INCREASE TO 2 TABLETS AT BEDTIME NEEDED 08/02/2018 11/19/2018 Inactive Nexium 40 mg capsule,delayed release RxNorm: 963683 TAKE ONE CAPSULE BY MOUTH TWICE A DAY 07/23/2018 11/19/2018 Inactive Bystolic 5 mg tablet RxNorm: 874766 1 Tablet(s) PO daily to take with 10 mg daily to equal 15mg daily 07/17/2018 10/29/2018 Inactive alprazolam 0.25 mg tablet RxNorm: 830167 1 Tablet(s) PO TID as needed 07/16/2018 10/29/2018 Inactive hydrocodone 10 mg-acetaminophen 325 mg tablet RxNorm: 470684 Tablet(s) PO TAKE ONE TO TWO TABLETS BY MOUTH EVERY 6 HOURS NEEDED FOR PAIN 07/10/2018 07/24/2018 Inactive prednisone 20 mg tablet RxNorm: 622258 1 Tablet(s) PO BID 07/10/2018 07/14/2018 Inactive Phenergan with Codeine Syrup RxNorm: 5-10 Milliliter(s) PO Q6 PRN 06/28/2018 01/28/2019 Inactive prednisone 20 mg tablet RxNorm: 902569 2 Tablet(s) PO daily 05/31/2018 06/04/2018 Inactive prednisone 20 mg tablet RxNorm: 127006 2 Tablet(s) PO daily 05/31/2018 05/30/2018 Inactive ceftriaxone 500 mg solution for injection RxNorm: 7234579 Inj 05/28/2018 05/28/2018 Inactive doxycycline hyclate 100 mg tablet RxNorm: 5595442 1 Tablet(s) PO BID 05/28/2018 06/06/2018 Inactive Kenalog 40 mg/mL suspension for injection RxNorm: 8540007 Milliliter(s) Inj 05/28/2018 05/28/2018 Inactive hydrocodone 10 mg-acetaminophen 325 mg tablet RxNorm: 443960 Tablet(s) PO TAKE ONE TO TWO TABLETS BY MOUTH EVERY 6 HOURS NEEDED FOR PAIN 05/09/2018 05/23/2018 Inactive alprazolam 0.25 mg tablet RxNorm: 802948 1 Tablet(s) PO daily as needed 04/25/2018 07/15/2018 Inactive Bystolic 10 mg tablet RxNorm: 555853 TAKE ONE TABLET BY MOUTH DAILY 04/16/2018 09/12/2018 Inactive hydrocodone 10 mg-acetaminophen 325 mg tablet RxNorm: 095661 Tablet(s) PO TAKE ONE TO TWO TABLETS BY MOUTH EVERY 6 HOURS NEEDED FOR PAIN 03/06/2018 03/20/2018 Inactive trazodone 50 mg tablet RxNorm: 009345 TAKE ONE AND ONE-HALF (1 1/2) TABLET BY MOUTH AT BEDTIME. MAY INCREASE TO 2 TABLETS AT BEDTIME NEEDED 02/23/2018 06/12/2018 Inactive mupirocin 2 % topical ointment RxNorm: 569137 1 TOP BID 02/09/2018 05/27/2018 Inactive Zofran 4 mg tablet RxNorm: 316659 1 Tablet(s) PO TID as needed 02/08/2018 No Stop Date Active Keflex 500 mg capsule RxNorm: 131009 1 Capsule(s) PO TID 02/07/2018 02/13/2018 Inactive alprazolam 0.25 mg tablet RxNorm: 302542 1 Tablet(s) PO daily as needed 01/24/2018 07/09/2018 Inactive hydrocodone 10 mg-acetaminophen 325 mg tablet RxNorm: 419329 Tablet(s) PO TAKE ONE TO TWO TABLETS BY MOUTH EVERY 6 HOURS NEEDED FOR PAIN 01/19/2018 02/02/2018 Inactive hydrochlorothiazide 25 mg tablet RxNorm: 080474 Tablet(s) TAKE ONE TABLET BY MOUTH DAILY 01/19/2018 01/19/2018 Inactive Kenalog 40 mg/mL suspension for injection RxNorm: 4446588 1 Milliliter(s) Inj 01/19/2018 01/19/2018 Inactive piroxicam 20 mg capsule RxNorm: 626313 1 Capsule(s) PO daily 01/19/2018 07/17/2018 Inactive D/C ORDER FOR HCTZ ceftriaxone 500 mg solution for injection RxNorm: 0972646 500 Milligram(s) Inj 01/19/2018 01/19/2018 Inactive Nexium 40 mg capsule,delayed release RxNorm: 236507 TAKE ONE CAPSULE BY MOUTH TWICE A DAY 01/18/2018 04/17/2018 Inactive Nexium 40 mg capsule,delayed release RxNorm: 073051 TAKE ONE CAPSULE BY MOUTH TWICE A DAY 01/15/2018 04/14/2018 Inactive ciprofloxacin 0.3 % eye drops RxNorm: 120529 2 Drop(s) ophthalmic (eye) Q2H while awake x 2 days, then Q4H x 5 days 11/23/2017 05/27/2018 Inactive Keflex 500 mg capsule RxNorm: 214793 1 Capsule(s) PO TID 11/23/2017 11/29/2017 Inactive hydrocodone 10 mg-acetaminophen 325 mg tablet RxNorm: 402414 Tablet(s) PO TAKE ONE TO TWO TABLETS BY MOUTH EVERY 6 HOURS NEEDED FOR PAIN 10/30/2017 11/13/2017 Inactive Augmentin 500 mg-125 mg tablet RxNorm: 804196 1 Tablet(s) PO TID 10/27/2017 11/05/2017 Inactive alprazolam 0.25 mg tablet RxNorm: 341297 1 Tablet(s) PO daily as needed 10/26/2017 04/24/2018 Inactive trazodone 50 mg tablet RxNorm: 896887 TAKE ONE AND ONE-HALF (1 1/2) TABLET BY MOUTH AT BEDTIME. MAY INCREASE TO 2 TABLETS AT BEDTIME NEEDED 09/25/2017 02/03/2018 Inactive Lexapro 20 mg tablet RxNorm: 050827 TAKE ONE AND ONE-HALF TABLET BY MOUTH DAILY 09/15/2017 09/09/2018 Inactive Flagyl 500 mg tablet RxNorm: 709484 1 Tablet(s) PO TID 09/12/2017 09/21/2017 Inactive promethazine 25 mg tablet RxNorm: 235117 1 Tablet(s) PO TID as needed nausea and vomitting THIS WILL MAKE YOU SLEEPY 09/12/2017 11/08/2017 Inactive Keflex 500 mg capsule RxNorm: 247882 1 Capsule(s) PO QID 08/25/2017 08/31/2017 Inactive [SAVINGS FOR UNINSURED PATIENTS -- [id number], PCN: [id number], Group: [id number], ID# [id number], Process claim through [employer], for questions: . THIS IS NOT INSURANCE.] alprazolam 0.25 mg tablet RxNorm: 106753 1 Tablet(s) PO daily as needed 07/31/2017 04/24/2018 Inactive prednisone 20 mg tablet RxNorm: 856242 2 Tablet(s) PO daily 07/25/2017 07/29/2017 Inactive Augmentin 500 mg-125 mg tablet RxNorm: 980854 1 Tablet(s) PO TID 07/25/2017 08/03/2017 Inactive trazodone 50 mg tablet RxNorm: 388796 TAKE ONE AND ONE-HALF (1 1/2) TABLET BY MOUTH AT BEDTIME. MAY INCREASE TO 2 TABLETS AT BEDTIME NEEDED 06/30/2017 09/03/2017 Inactive Bystolic 10 mg tablet RxNorm: 723199 TAKE ONE TABLET BY MOUTH DAILY 06/30/2017 2017 Inactive hydrochlorothiazide 25 mg tablet RxNorm: 645198 TAKE ONE TABLET BY MOUTH DAILY 06/30/2017 01/18/2018 Inactive Flagyl 500 mg tablet RxNorm: 749953 1 Tablet(s) PO TID 06/27/2017 07/03/2017 Inactive Phenergan with Codeine Syrup RxNorm: 5-10 Milliliter(s) PO Q6 PRN 06/27/2017 11/15/2017 Inactive Levaquin 500 mg tablet RxNorm: 074343 1 Tablet(s) PO daily 06/27/2017 07/03/2017 Inactive Kenalog 40 mg/mL suspension for injection RxNorm: 7729210 1 Milliliter(s) Inj 06/27/2017 06/27/2017 Inactive Nexium 40 mg capsule,delayed release RxNorm: 589393 1 Capsule(s) PO BID TAKE ONE CAPSULE BY MOUTH BID 05/22/2017 09/18/2017 Inactive Nexium 40 mg capsule,delayed release RxNorm: 961980 1 Capsule(s) PO BID TAKE ONE CAPSULE BY MOUTH BID 05/22/2017 05/21/2017 Inactive hydrocodone 10 mg-acetaminophen 325 mg tablet RxNorm: 468359 Tablet(s) PO TAKE ONE TO TWO TABLETS BY MOUTH EVERY 6 HOURS NEEDED FOR PAIN 05/17/2017 06/15/2017 Inactive Nexium 40 mg capsule,delayed release RxNorm: 599603 Capsule(s) TAKE ONE CAPSULE BY MOUTH BID 05/17/2017 05/21/2017 Inactive alprazolam 0.25 mg tablet RxNorm: 664696 1 Tablet(s) PO daily as needed 05/03/2017 07/01/2017 Inactive Levaquin 500 mg tablet RxNorm: 345696 1 Tablet(s) PO daily 04/20/2017 04/26/2017 Inactive clotrimazole 1 % topical cream RxNorm: 636690 1 Application TOP BID 04/20/2017 11/07/2017 Inactive Kenalog 40 mg/mL suspension for injection RxNorm: 6964946 Milliliter(s) Inj 04/20/2017 04/20/2017 Inactive nystatin 100,000 unit/gram topical powder RxNorm: 233677 1 Gram(s) APPLY TOPICALLY TWO TIMES A DAY 04/10/2017 07/08/2017 Inactive trazodone 50 mg tablet RxNorm: 824832 TAKE ONE AND ONE-HALF (1 1/2) TABLET BY MOUTH AT BEDTIME. MAY INCREASE TO 2 TABLETS AT BEDTIME NEEDED 03/28/2017 06/23/2017 Inactive Augmentin 875 mg-125 mg tablet RxNorm: 428468 1 Tablet(s) PO BID 03/14/2017 03/20/2017 Inactive Kenalog 40 mg/mL suspension for injection RxNorm: 5652831 1 Milliliter(s) Inj 03/14/2017 03/14/2017 Inactive Lexapro 20 mg tablet RxNorm: 119876 1.5 Tablet(s) PO daily 03/08/2017 03/07/2017 Inactive Lexapro 20 mg tablet RxNorm: 256703 1.5 Tablet(s) PO daily 03/08/2017 07/05/2017 Inactive alprazolam 0.25 mg tablet RxNorm: 159025 1 Tablet(s) PO daily as needed 02/23/2017 04/23/2017 Inactive (Response to an electronic controlled substance refill request - RxReferenceNumber: [id number]) Flagyl 500 mg tablet RxNorm: 240524 1 Tablet(s) PO TID 02/20/2017 03/01/2017 Inactive promethazine 25 mg tablet RxNorm: 421622 1 Tablet(s) PO TID as needed nausea 02/20/2017 03/01/2017 Inactive Cipro 500 mg tablet RxNorm: 767040 1 Tablet(s) PO BID 02/20/2017 03/01/2017 Inactive Flagyl 500 mg tablet RxNorm: 300603 1 Tablet(s) PO TID 02/09/2017 02/15/2017 Inactive Trintellix 10 mg tablet RxNorm: 1484168 1 Tablet(s) PO QAM 02/06/2017 03/07/2017 Inactive Efudex 5 % topical cream RxNorm: 659358 1 Application TOP BID use on skin spot on nose 02/06/2017 02/15/2017 Inactive Bystolic 10 mg tablet RxNorm: 688121 TAKE ONE TABLET BY MOUTH DAILY 02/03/2017 06/02/2017 Inactive Imitrex 50 mg tablet RxNorm: 230250 TAKE ONE TABLET BY MOUTH EVERY 8 HOURS NEEDED MAY REPEAT IN 1 HOUR OF INITIAL DOSE. DISCONTINUE FIORICET 12/22/2016 02/19/2017 Inactive Nexium 40 mg capsule,delayed release RxNorm: 123320 TAKE ONE CAPSULE BY MOUTH EVERY DAY 12/21/2016 05/16/2017 Inactive Lexapro 20 mg tablet RxNorm: 416895 Tablet(s) TAKE ONE TABLET BY MOUTH DAILY 12/05/2016 02/05/2017 Inactive Augmentin 875 mg-125 mg tablet RxNorm: 512658 1 Tablet(s) PO BID 11/28/2016 12/04/2016 Inactive ceftriaxone 500 mg solution for injection RxNorm: 7797466 1 Milliliter(s) Inj 11/28/2016 11/28/2016 Inactive hydrocodone 10 mg-acetaminophen 325 mg tablet RxNorm: 879484 Tablet(s) PO TAKE ONE TO TWO TABLETS BY MOUTH EVERY 6 HOURS NEEDED FOR PAIN 11/28/2016 05/16/2017 Inactive (Appended: Controlled substance eRx refill - RxReferenceNumber: [id number]) prednisone 20 mg tablet RxNorm: 496254 2 Tablet(s) PO daily 11/28/2016 12/02/2016 Inactive trazodone 50 mg tablet RxNorm: 063776 Tablet(s) TAKE 1 AND 1/2 TABLETS EVERY NIGHT AT BEDTIME , MAY INCREASE TO 2 TABLETS AT BEDTIME NEEDED 11/21/2016 11/20/2016 Inactive Synthroid 100 mcg tablet RxNorm: 357400 1 Tablet(s) PO daily 11/21/2016 05/19/2017 Inactive Brand name only! trazodone 50 mg tablet RxNorm: 085667 TAKE 1 AND 1/2 TABLETS EVERY NIGHT AT BEDTIME , MAY INCREASE TO 2 TABLETS AT BEDTIME NEEDED 11/21/2016 08/01/2018 Inactive Synthroid 100 mcg tablet RxNorm: 599393 1 Tablet(s) PO daily TAKE ONE TABLET BY MOUTH DAILY 11/08/2016 11/20/2016 Inactive ceftriaxone 500 mg solution for injection RxNorm: 1115427 Inj 11/07/2016 11/07/2016 Inactive Kenalog 40 mg/mL suspension for injection RxNorm: 0133721 Milliliter(s) Inj 11/07/2016 11/07/2016 Inactive Xanax 0.25 mg tablet RxNorm: 693708 1 Tablet(s) PO daily as needed 10/31/2016 05/02/2017 Inactive alprazolam 0.25 mg tablet RxNorm: 797285 1 Tablet(s) PO daily as needed 10/21/2016 12/18/2016 Inactive (Response to an electronic controlled substance refill request - RxReferenceNumber: [id number]) hydrochlorothiazide 25 mg tablet RxNorm: 729965 TAKE ONE TABLET BY MOUTH DAILY 10/11/2016 04/08/2017 Inactive Xanax 0.25 mg tablet RxNorm: 902041 1 Tablet(s) PO daily as needed 08/23/2016 10/19/2016 Inactive Flonase Allergy Relief 50 mcg/actuation nasal spray,suspension RxNorm: 7647607 1 [place] NASAL daily 08/15/2016 No Stop Date Active amoxicillin 500 mg capsule RxNorm: 282915 1 Capsule(s) PO TID 08/15/2016 08/24/2016 Inactive Bystolic 10 mg tablet RxNorm: 157964 TAKE ONE TABLET BY MOUTH DAILY 08/01/2016 12/28/2016 Inactive trazodone 50 mg tablet RxNorm: 637915 TAKE 1 AND 1/2 TABLETS EVERY NIGHT AT BEDTIME , MAY INCREASE TO 2 TABLETS AT BEDTIME NEEDED 07/25/2016 11/11/2016 Inactive alprazolam 0.25 mg tablet RxNorm: 591504 1 Tablet(s) PO daily as needed 07/25/2016 08/22/2016 Inactive (Response to an electronic controlled substance refill request - RxReferenceNumber: [id number]) Imitrex 50 mg tablet RxNorm: 929268 1 Tablet(s) PO Q8 as needed may repeat x1 dose in 1 hour of inital dose. 07/13/2016 No Stop Date Active Lexapro 20 mg tablet RxNorm: 236424 TAKE 1/2 TABLET BY MOUTH DAILY FOR 10 DAYS, THEN TAKE ONE TABLET BY MOUTH DAILY 06/27/2016 11/23/2016 Inactive Synthroid 100 mcg tablet RxNorm: 176723 TAKE ONE TABLET BY MOUTH DAILY 06/20/2016 11/07/2016 Inactive Augmentin 500 mg-125 mg tablet RxNorm: 860662 1 Tablet(s) PO TID 06/07/2016 06/13/2016 Inactive hydrocodone 10 mg-acetaminophen 325 mg tablet RxNorm: 558578 Tablet(s) PO TAKE ONE TO TWO TABLETS BY MOUTH EVERY 6 HOURS NEEDED FOR PAIN 06/07/2016 11/27/2016 Inactive (Appended: Controlled substance eRx refill - RxReferenceNumber: [id number]) hydrochlorothiazide 25 mg tablet RxNorm: 432259 TAKE ONE TABLET BY MOUTH DAILY 03/14/2016 09/09/2016 Inactive Edarbi 40 mg tablet RxNorm: 3079008 1 Tablet(s) PO daily 03/14/2016 06/06/2016 Inactive trazodone 50 mg tablet RxNorm: 483554 Tablet(s) TAKE 1 AND 1/2 TABLET AT BEDTIME. MAY INCREASE TO 2 TABLETS IF NECESSARY 02/25/2016 07/05/2016 Inactive Imitrex 50 mg tablet RxNorm: 337311 1 Tablet(s) PO Q8 as needed may repeat x1 dose in 1 hour of inital dose. 02/25/2016 07/12/2016 Inactive dc fioricet Xanax 0.25 mg tablet RxNorm: 919349 1 Tablet(s) PO daily as needed 02/24/2016 07/21/2016 Inactive mupirocin 2 % topical ointment RxNorm: 784247 1 TOP BID 02/22/2016 11/08/2017 Inactive Bactrim DS 800 mg-160 mg tablet RxNorm: 616566 1 Tablet(s) PO BID 02/22/2016 03/02/2016 Inactive Fioricet 50 mg-325 mg-40 mg tablet RxNorm: 906523 Tablet(s) TAKE ONE TABLET BY MOUTH EVERY 4 HOURS NEEDED FOR headache 02/12/2016 02/24/2016 Inactive (Response to an electronic controlled substance refill request - RxReferenceNumber: [id number]) Fioricet 50 mg-325 mg-40 mg tablet RxNorm: 827290 Tablet(s) TAKE ONE TABLET BY MOUTH EVERY 4 HOURS NEEDED FOR headache 02/12/2016 02/11/2016 Inactive (Response to an electronic controlled substance refill request - RxReferenceNumber: [id number]) Nexium 40 mg capsule,delayed release RxNorm: 877466 TAKE ONE CAPSULE BY MOUTH EVERY DAY 02/01/2016 10/27/2016 Inactive Bystolic 10 mg tablet RxNorm: 525310 Tablet(s) TAKE ONE TABLET BY MOUTH DAILY 01/06/2016 07/03/2016 Inactive Xanax 0.25 mg tablet RxNorm: 819157 1 Tablet(s) PO daily as needed 12/28/2015 02/23/2016 Inactive Levaquin 500 mg tablet RxNorm: 967889 1 Tablet(s) PO daily take a probiotic daily 12/14/2015 02/11/2016 Inactive Levaquin 500 mg tablet RxNorm: 146205 1 Tablet(s) PO daily take a probiotic daily 12/14/2015 12/13/2015 Inactive prednisone 20 mg tablet RxNorm: 252260 1 Tablet(s) PO BID 12/07/2015 12/13/2015 Inactive Augmentin 875 mg-125 mg tablet RxNorm: 321954 1 Tablet(s) PO BID 12/07/2015 12/13/2015 Inactive ceftriaxone 500 mg solution for injection RxNorm: 9514318 Inj 12/07/2015 12/07/2015 Inactive Phenergan with Codeine Syrup RxNorm: 5-10 Milliliter(s) PO Q6 PRN 12/07/2015 06/26/2017 Inactive alprazolam 0.25 mg tablet RxNorm: 071410 1 Tablet(s) PO daily as needed 11/27/2015 12/25/2015 Inactive (Response to an electronic controlled substance refill request - RxReferenceNumber: [id number]) trazodone 50 mg tablet RxNorm: 919432 TAKE 1 AND 1/2 TABLET AT BEDTIME FOR 2 WEEKS, MAY INCREASE TO 2 TABLETS IF NECESSARY AFTER THAT 11/26/2015 02/24/2016 Inactive ceftriaxone 500 mg solution for injection RxNorm: 5446676 Milliliter(s) Inj 11/24/2015 11/24/2015 Inactive prednisone 10 mg tablet RxNorm: 161636 3 Tablet(s) PO daily 11/24/2015 11/28/2015 Inactive cefdinir 300 mg capsule RxNorm: 367385 1 Capsule(s) PO BID 11/24/2015 11/30/2015 Inactive Kenalog 40 mg/mL suspension for injection RxNorm: 9746038 1 Milliliter(s) Inj 11/24/2015 11/24/2015 Inactive Lexapro 20 mg tablet RxNorm: 375606 TAKE 1/2 TABLET BY MOUTH DAILY FOR 10 DAYS, THEN TAKE ONE TABLET BY MOUTH DAILY 11/23/2015 05/20/2016 Inactive Lipitor 10 mg tablet RxNorm: 565562 Tablet(s) TAKE ONE TABLET BY MOUTH EVERY DAY 10/26/2015 11/06/2016 Inactive Norvasc 10 mg tablet RxNorm: 458995 Tablet(s) PO TAKE ONE TABLET BY MOUTH EVERY DAY 10/26/2015 01/18/2018 Inactive hydrochlorothiazide 25 mg tablet RxNorm: 599516 TAKE ONE TABLET BY MOUTH DAILY 10/20/2015 01/17/2016 Inactive promethazine 25 mg/mL injection solution RxNorm: 313234 Milliliter(s) Inj 08/27/2015 08/27/2015 Inactive ketorolac 60 mg/2 mL intramuscular solution RxNorm: 339166 Milliliter(s) IM 08/27/2015 08/27/2015 Inactive alprazolam 0.25 mg tablet RxNorm: 783577 1 Tablet(s) PO daily as needed 08/27/2015 10/25/2017 Inactive (Response to an electronic controlled substance refill request - RxReferenceNumber: [id number]) Lexapro 20 mg tablet RxNorm: 544500 TAKE 1/2 TABLET BY MOUTH DAILY FOR 10 DAYS, THEN TAKE ONE TABLET BY MOUTH DAILY 08/13/2015 11/10/2015 Inactive Flonase 50 mcg/actuation nasal spray,suspension RxNorm: 791599 PLACE 1 SPRAY IN EACH NOSTRIL DAILY 08/13/2015 02/08/2016 Inactive Augmentin 500 mg-125 mg tablet RxNorm: 902713 1 Tablet(s) PO TID 08/10/2015 08/16/2015 Inactive Kenalog 40 mg/mL suspension for injection RxNorm: 8421088 Milliliter(s) Inj 08/10/2015 08/10/2015 Inactive ceftriaxone 500 mg solution for injection RxNorm: 0271900 Inj 08/10/2015 08/10/2015 Inactive nystatin 100,000 unit/mL oral suspension RxNorm: 332134 4 Milliliter(s) PO QID 08/10/2015 08/16/2015 Inactive trazodone 50 mg tablet RxNorm: 452825 TAKE 1 AND 1/2 TABLET AT BEDTIME FOR 2 WEEKS, MAY INCREASE TO 2 TABLETS IF NECESSARY AFTER THAT 07/31/2015 11/25/2015 Inactive ceftriaxone 500 mg solution for injection RxNorm: 3021672 1 Milliliter(s) Inj 07/28/2015 07/28/2015 Inactive Bactrim DS 800 mg-160 mg tablet RxNorm: 147875 1 Tablet(s) PO BID 07/28/2015 08/06/2015 Inactive Bactroban 2 % topical ointment RxNorm: 281091 1 Application TOP BID 07/28/2015 08/06/2015 Inactive Diflucan 150 mg tablet RxNorm: 605866 1 Tablet(s) PO daily 06/11/2015 06/17/2015 Inactive clotrimazole 1 % topical cream RxNorm: 807439 1 Application TOP BID 06/11/2015 07/10/2015 Inactive Bystolic 10 mg tablet RxNorm: 967352 TAKE ONE TABLET BY MOUTH DAILY 06/08/2015 12/04/2015 Inactive alprazolam 0.25 mg tablet RxNorm: 875261 1 Tablet(s) PO daily as needed 06/01/2015 08/25/2015 Inactive (Response to an electronic controlled substance refill request - RxReferenceNumber: [id number]) Fioricet 50 mg-325 mg-40 mg tablet RxNorm: 780662 Tablet(s) TAKE ONE TABLET BY MOUTH EVERY 4 HOURS NEEDED FOR headache 05/28/2015 06/08/2015 Inactive (Response to an electronic controlled substance refill request - RxReferenceNumber: [id number]) trazodone 50 mg tablet RxNorm: 131584 TAKE 1 AND 1/2 TABLET AT BEDTIME FOR 2 WEEKS, MAY INCREASE TO 2 TABLETS IF NECESSARY AFTER THAT 05/25/2015 08/22/2015 Inactive trazodone 50 mg tablet RxNorm: 548271 TAKE 1 AND 1/2 TABLET AT BEDTIME FOR 2 WEEKS, MAY INCREASE TO 2 TABLETS IF NECESSARY AFTER THAT 05/25/2015 05/24/2015 Inactive Synthroid 100 mcg tablet RxNorm: 240999 TAKE ONE TABLET BY MOUTH DAILY 04/23/2015 01/17/2016 Inactive Lipitor 10 mg tablet RxNorm: 913877 TAKE ONE TABLET BY MOUTH EVERY DAY 04/23/2015 10/25/2015 Inactive Kenalog 40 mg/mL suspension for injection RxNorm: 4205855 Milliliter(s) Inj 03/19/2015 03/19/2015 Inactive Lexapro 20 mg tablet RxNorm: 956287 1 Tablet(s) PO daily 03/19/2015 07/16/2015 Inactive 1/2 tab daily x 10 days then 1 tab daily hydrocodone 10 mg-acetaminophen 325 mg tablet RxNorm: 054420 Tablet(s) PO TAKE ONE TO TWO TABLETS BY MOUTH EVERY 6 HOURS NEEDED FOR PAIN 03/19/2015 06/06/2016 Inactive (Appended: Controlled substance eRx refill - RxReferenceNumber: [id number]) Carafate 1 gram tablet RxNorm: 436521 1 Tablet(s) PO AC & HS 03/19/2015 06/16/2015 Inactive dissolve in water and take as a slurry hydrochlorothiazide 25 mg tablet RxNorm: 380306 1 Tablet(s) PO daily 03/12/2015 09/07/2015 Inactive Nexium 40 mg capsule,delayed release RxNorm: 909805 TAKE ONE CAPSULE BY MOUTH EVERY DAY 02/26/2015 12/22/2015 Inactive Cymbalta 60 mg capsule,delayed release RxNorm: 905020 TAKE ONE CAPSULE BY MOUTH TWICE A DAY 02/23/2015 03/18/2015 Inactive alprazolam 0.25 mg tablet RxNorm: 857201 1 Tablet(s) PO daily as needed 02/11/2015 05/10/2015 Inactive (Response to an electronic controlled substance refill request - RxReferenceNumber: [id number]) trazodone 50 mg tablet RxNorm: 875630 TAKE 1 AND 1/2 TABLET AT BEDTIME FOR 2 WEEKS, MAY INCREASE TO 2 TABLETS IF NECESSARY AFTER THAT 01/27/2015 05/24/2015 Inactive Augmentin 500 mg-125 mg tablet RxNorm: 628831 1 Tablet(s) PO TID 01/07/2015 01/13/2015 Inactive gentamicin 0.3 % eye drops RxNorm: 100657 3 Drop(s) OPH QID 01/07/2015 01/13/2015 Inactive [AttnRPh: Saving apply/adjudicate RxGRP:[id number] RxBIN:[id number] RxPCN: ID#:[id number]] scopolamine 1.5 mg transdermal 72 hour patch RxNorm: 131933 1 Patch TD q72 hours 01/07/2015 11/23/2015 Inactive Synthroid 100 mcg tablet RxNorm: 270258 TAKE ONE TABLET BY MOUTH ONCE A DAY 01/06/2015 04/22/2015 Inactive nystatin 100,000 unit/gram topical powder RxNorm: 784426 APPLY TOPICALLY TWO TIMES A DAY 12/18/2014 03/17/2015 Inactive alprazolam 0.25 mg tablet RxNorm: 849052 TAKE ONE TABLET BY MOUTH DAILY NEEDED 10/30/2014 11/28/2014 Inactive (Response to an electronic controlled substance refill request - RxReferenceNumber: [id number]) alprazolam 0.25 mg tablet RxNorm: 328194 Tablet(s) TAKE ONE TABLET BY MOUTH DAILY 10/30/2014 10/29/2014 Inactive (Response to an electronic controlled substance refill request - RxReferenceNumber: [id number]) Lipitor 10 mg tablet RxNorm: 389244 TAKE ONE TABLET BY MOUTH EVERY DAY 10/30/2014 02/26/2015 Inactive alprazolam 0.25 mg tablet RxNorm: 427596 TAKE ONE TABLET BY MOUTH DAILY 10/07/2014 10/29/2014 Inactive (Response to an electronic controlled substance refill request - RxReferenceNumber: [id number]) alprazolam 0.25 mg tablet RxNorm: 208990 TAKE ONE TABLET BY MOUTH DAILY 10/06/2014 10/07/2014 Inactive (Response to an electronic controlled substance refill request - RxReferenceNumber: [id number]) alprazolam 0.25 mg tablet RxNorm: 612850 Tablet(s) TAKE ONE TABLET BY MOUTH EVERY DAY NEEDED 09/30/2014 10/06/2014 Inactive (Response to an electronic controlled substance refill request - RxReferenceNumber: [id number]) Fioricet 50 mg-325 mg-40 mg tablet RxNorm: 335455 Tablet(s) TAKE ONE TABLET BY MOUTH EVERY 4 HOURS NEEDED FOR headache 09/29/2014 10/12/2014 Inactive (Response to an electronic controlled substance refill request - RxReferenceNumber: [id number]) Bystolic 10 mg tablet RxNorm: 070752 1 Tablet(s) PO daily TAKE ONE TABLET BY MOUTH EVERY DAY 09/29/2014 04/26/2015 Inactive Bystolic 5 mg tablet RxNorm: 787055 TAKE 1 AND 1/2 TABLETS ONCE DAILY 09/24/2014 09/23/2014 Inactive Bystolic 5 mg tablet RxNorm: 579102 Tablet(s) TAKE 1 AND 1/2 TABLETS ONCE DAILY 09/24/2014 09/18/2015 Inactive gentamicin 0.3 % eye drops RxNorm: 510599 3 Drop(s) OPH QID 09/23/2014 09/29/2014 Inactive trazodone 50 mg tablet RxNorm: 674614 TAKE 1 AND 1/2 TABLET AT BEDTIME FOR 2 WEEKS, MAY INCREASE TO 2 TABLETS IF NECESSARY AFTER THAT 09/22/2014 01/26/2015 Inactive Fioricet 50 mg-325 mg-40 mg tablet RxNorm: 515603 TAKE ONE TABLET BY MOUTH EVERY 4 HOURS NEEDED FOR PAIN 09/17/2014 09/28/2014 Inactive (Response to an electronic controlled substance refill request - RxReferenceNumber: [id number]) Duragesic 50 mcg/hr transdermal patch RxNorm: 836535 1 TD q72 hours 08/07/2014 01/06/2015 Inactive [SAVINGS FOR UNINSURED PATIENTS -- BIN:[id number], PCN: ASPROD1, Group: [facility], ID# [id number], Process claim through [employer], for questions: . THIS IS NOT INSURANCE.] alprazolam 0.25 mg tablet RxNorm: 777730 TAKE ONE TABLET BY MOUTH EVERY DAY NEEDED 07/31/2014 08/29/2014 Inactive (Response to an electronic controlled substance refill request - RxReferenceNumber: [id number]) alprazolam 0.25 mg tablet RxNorm: 332739 1 Tablet(s) PO daily as needed TAKE ONE TABLET BY MOUTH EVERY DAY NEEDED 07/30/2014 08/01/2014 Inactive (Response to an electronic controlled substance refill request - RxReferenceNumber: [id number]) Diflucan 150 mg tablet RxNorm: 352238 1 Tablet(s) PO daily 06/25/2014 07/01/2014 Inactive [SAVINGS FOR UNINSURED PATIENTS -- BIN:[id number], PCN: ASPROD1, Group: [id number], ID# [id number], Process claim through [employer], for questions: . THIS IS NOT INSURANCE.] Kenalog 40 mg/mL suspension for injection RxNorm: 7319633 Milliliter(s) Inj 06/23/2014 06/23/2014 Inactive [SAVINGS FOR UNINSURED PATIENTS -- BIN:[id number], PCN: ASPROD1, Group: [id number], ID# [id number], Process claim through [employer], for questions: . THIS IS NOT INSURANCE.] ceftriaxone 500 mg solution for injection RxNorm: 767928 Inj 06/23/2014 06/23/2014 Inactive [SAVINGS FOR UNINSURED PATIENTS -- BIN:186486, PCN: ASPROD1, Group: [id number], ID# [id number], Process claim through [employer], for questions: . THIS IS NOT INSURANCE.] Levaquin 500 mg tablet RxNorm: 136771 1 Tablet(s) PO daily 06/23/2014 07/13/2014 Inactive [SAVINGS FOR UNINSURED PATIENTS -- BIN:625626, PCN: ASPROD1, Group: [id number], ID# [id number], Process claim through [employer], for questions: . THIS IS NOT INSURANCE.] Duragesic 50 mcg/hr transdermal patch RxNorm: 881225 1 TD q72 hours 06/05/2014 08/06/2014 Inactive [SAVINGS FOR UNINSURED PATIENTS -- BIN:876810, PCN: ASPROD1, Group: [id number], ID# [id number], Process claim through [employer], for questions: . THIS IS NOT INSURANCE.] alprazolam 0.25 mg tablet RxNorm: 911400 1 Tablet(s) PO daily as needed TAKE ONE TABLET BY MOUTH EVERY DAY NEEDED 06/02/2014 07/29/2014 Inactive (Response to an electronic controlled substance refill request - RxReferenceNumber: [id number]) nystatin 100,000 unit/gram topical powder RxNorm: 475076 APPLY TO AFFECTED AREA(S) TWO TIMES A DAY 05/01/2014 06/14/2014 Inactive hydrochlorothiazide 25 mg tablet RxNorm: 946358 TAKE ONE TABLET BY MOUTH EVERY DAY MUST CALL MD FOR APPOINTMENT 04/24/2014 10/20/2014 Inactive alprazolam 0.25 mg tablet RxNorm: 259735 Tablet(s) TAKE ONE TABLET BY MOUTH EVERY DAY NEEDED 04/16/2014 06/02/2014 Inactive (Response to an electronic controlled substance refill request - RxReferenceNumber: [id number]) alprazolam 0.25 mg tablet RxNorm: 818834 TAKE ONE TABLET BY MOUTH EVERY DAY NEEDED 04/16/2014 05/15/2014 Inactive (Response to an electronic controlled substance refill request - RxReferenceNumber: [id number]) alprazolam 0.25 mg tablet RxNorm: 714070 TAKE ONE TABLET BY MOUTH EVERY DAY NEEDED 04/16/2014 05/15/2014 Inactive (Response to an electronic controlled substance refill request - RxReferenceNumber: [id number]) alprazolam 0.25 mg tablet RxNorm: 550064 TAKE ONE TABLET BY MOUTH EVERY DAY NEEDED 04/14/2014 04/16/2014 Inactive (Response to an electronic controlled substance refill request - RxReferenceNumber: [id number]) Lipitor 10 mg tablet RxNorm: 179050 TAKE ONE TABLET BY MOUTH EVERY DAY 04/14/2014 09/10/2014 Inactive alprazolam 0.25 mg tablet RxNorm: 238537 TAKE ONE TABLET BY MOUTH EVERY DAY NEEDED 04/14/2014 04/14/2014 Inactive (Response to an electronic controlled substance refill request - RxReferenceNumber: [id number]) alprazolam 0.25 mg tablet RxNorm: 666391 TAKE ONE TABLET BY MOUTH EVERY DAY NEEDED 04/14/2014 04/15/2014 Inactive (Response to an electronic controlled substance refill request - RxReferenceNumber: [id number]) alprazolam 0.25 mg tablet RxNorm: 426001 TAKE ONE TABLET BY MOUTH EVERY DAY NEEDED 04/14/2014 04/14/2014 Inactive (Response to an electronic controlled substance refill request [id number]) nystatin 100,000 unit/gram topical powder RxNorm: 986823 1 Application TOP BID 04/03/2014 07/01/2014 Inactive [SAVINGS FOR UNINSURED PATIENTS -- BIN:[id number], PCN: ASPROD1, Group: [id number], ID# [id number], Process claim through [employer], for questions: . THIS IS NOT INSURANCE.] Keflex 500 mg capsule RxNorm: 553151 1 Capsule(s) PO QID 04/03/2014 04/09/2014 Inactive [SAVINGS FOR UNINSURED PATIENTS -- BIN:353242, PCN: ASPROD1, Group: [id number], ID# [id number], Process claim through [employer], for questions: . THIS IS NOT INSURANCE.] Synthroid 100 mcg tablet RxNorm: 227880 1 Tablet(s) PO daily TAKE ONE TABLET BY MOUTH EVERY DAY 04/01/2014 01/05/2015 Inactive [SAVINGS FOR UNINSURED PATIENTS -- BIN:573297, PCN: ASPROD1, Group: [id number], ID# [id number], Process claim through [employer], for questions: . THIS IS NOT INSURANCE.] Duragesic 50 mcg/hr transdermal patch RxNorm: 024965 1 TD q72 hours 03/24/2014 06/04/2014 Inactive [SAVINGS FOR UNINSURED PATIENTS -- BIN:694828, PCN: ASPROD1, Group: [id number], ID# [id number], Process claim through [employer], for questions: . THIS IS NOT INSURANCE.] trazodone 50 mg tablet RxNorm: 052165 TAKE 1 AND 1/2 TABLET AT BEDTIME FOR 2 WEEKS, MAY INCREASE TO 2 TABLETS IF NECESSARY AFTER THAT 03/18/2014 09/13/2014 Inactive nystatin 100,000 unit/gram topical powder RxNorm: 529444 1 Application TOP BID 03/07/2014 03/16/2014 Inactive [SAVINGS FOR UNINSURED PATIENTS -- BIN:504720, PCN: ASPROD1, Group: [id number], ID# [id number], Process claim through [employer], for questions: . THIS IS NOT INSURANCE.] permethrin 5 % topical cream RxNorm: 818355 1 Application TOP daily 03/07/2014 11/23/2015 Inactive apply head to toe-leave on overnight and wash off in the a.m. May repeat x 1 if needed Diflucan 150 mg tablet RxNorm: 048756 1 Tablet(s) PO daily 03/07/2014 03/09/2014 Inactive [SAVINGS FOR UNINSURED PATIENTS -- BIN:883948, PCN: ASPROD1, Group: [id number], ID# [id number], Process claim through [employer], for questions: . THIS IS NOT INSURANCE.] hydrochlorothiazide 25 mg tablet RxNorm: 791801 TAKE ONE TABLET BY MOUTH EVERY DAY MUST CALL MD FOR APPOINTMENT 03/06/2014 04/23/2014 Inactive Zithromax Z-Sergio 250 mg tablet RxNorm: 095344 Tablet(s) PO as directed 03/04/2014 11/23/2015 Inactive [SAVINGS FOR UNINSURED PATIENTS -- BIN:820542, PCN: ASPROD1, Group: [id number], ID# [id number], Process claim through [employer], for questions: . THIS IS NOT INSURANCE.] Flonase 50 mcg/actuation nasal spray,suspension RxNorm: 807385 1 [place] NASAL daily 03/04/2014 07/01/2014 Inactive [SAVINGS FOR UNINSURED PATIENTS -- BIN:140267, PCN: ASPROD1, Group: [id number], ID# [id number], Process claim through [employer], for questions: . THIS IS NOT INSURANCE.] alprazolam 0.25 mg tablet RxNorm: 468983 1 Tablet(s) PO PRN TAKE ONE TABLET BY MOUTH EVERY DAY NEEDED 02/25/2014 04/14/2014 Inactive (Appended: Controlled substance eRx refill - RxReferenceNumber: [id number]) alprazolam 0.25 mg tablet RxNorm: 108074 TAKE ONE TABLET BY MOUTH EVERY DAY NEEDED 02/21/2014 03/22/2014 Inactive (Response to an electronic controlled substance refill request - RxReferenceNumber: [id number]) alprazolam 0.25 mg tablet RxNorm: 831996 TAKE ONE TABLET BY MOUTH EVERY DAY NEEDED 02/21/2014 03/22/2014 Inactive (Response to an electronic controlled substance refill request - RxReferenceNumber: [id number]) alprazolam 0.25 mg tablet RxNorm: 298585 TAKE ONE TABLET BY MOUTH EVERY DAY NEEDED 02/18/2014 03/19/2014 Inactive (Response to an electronic controlled substance refill request - RxReferenceNumber: [id number]) Cymbalta 60 mg capsule,delayed release RxNorm: 460513 TAKE ONE CAPSULE BY MOUTH TWICE A DAY 02/18/2014 01/13/2015 Inactive Nexium 40 mg capsule,delayed release RxNorm: 154935 TAKE ONE CAPSULE BY MOUTH EVERY DAY 02/18/2014 01/13/2015 Inactive Bactrim DS 800 mg-160 mg tablet RxNorm: 043286 1 Tablet(s) PO BID 02/13/2014 02/19/2014 Inactive probiotic while one antibiotic Bactrim DS 800 mg-160 mg tablet RxNorm: 377446 1 Tablet(s) PO BID 02/13/2014 02/12/2014 Inactive hydrocodone 10 mg-acetaminophen 325 mg tablet RxNorm: 126116 Tablet(s) PO TAKE ONE TO TWO TABLETS BY MOUTH EVERY 6 HOURS NEEDED FOR PAIN 02/06/2014 03/18/2015 Inactive (Appended: Controlled substance eRx refill - RxReferenceNumber: [id number]) Abilify 2 mg tablet RxNorm: 429863 Tablet(s) PO TAKE ONE TABLET BY MOUTH EVERY NIGHT AT BEDTIME 02/03/2014 03/19/2015 Inactive Duragesic 50 mcg/hr transdermal patch RxNorm: 446963 1 TD q72 hours 01/14/2014 03/23/2014 Inactive alprazolam 0.25 mg tablet RxNorm: 493041 1 Tablet(s) PO QDAY PRN 01/14/2014 02/12/2014 Inactive alprazolam 0.25 mg tablet RxNorm: 853962 Tablet(s) PO TAKE ONE TABLET BY MOUTH EVERY DAY NEEDED 01/14/2014 02/24/2014 Inactive (Appended: Controlled substance eRx refill - RxReferenceNumber: [id number]) Lipitor 10 mg tablet RxNorm: 059004 Tablet(s) PO TAKE ONE TABLET BY MOUTH EVERY DAY 01/14/2014 04/13/2014 Inactive Synthroid 100 mcg tablet RxNorm: 647295 Tablet(s) PO TAKE ONE TABLET BY MOUTH EVERY DAY 2013 03/31/2014 Inactive Fioricet 50 mg-325 mg-40 mg tablet RxNorm: 434373 Tablet(s) PO TAKE ONE TABLET BY MOUTH EVERY 4 HOURS NEEDED FOR PAIN 11/27/2013 09/17/2014 Inactive Fioricet 50 mg-325 mg-40 mg tablet RxNorm: 237320 Tablet(s) PO TAKE ONE TABLET BY MOUTH EVERY 4 HOURS NEEDED FOR PAIN 11/25/2013 11/26/2013 Inactive Zithromax Z-Sergio 250 mg tablet RxNorm: 320714 Tablet(s) PO as directed 11/11/2013 01/13/2014 Inactive Bystolic 10 mg tablet RxNorm: 647544 Tablet(s) PO TAKE ONE TABLET BY MOUTH EVERY DAY 10/21/2013 09/28/2014 Inactive Abilify 2 mg tablet RxNorm: 063333 1 Tablet(s) PO QHS 09/25/2013 01/22/2014 Inactive Synthroid 100 mcg tablet RxNorm: 832656 Tablet(s) PO TAKE ONE TABLET BY MOUTH EVERY DAY 09/24/2013 12/25/2013 Inactive Abilify 2 mg tablet RxNorm: 095498 1 Tablet(s) PO QHS 09/24/2013 09/24/2013 Inactive Rocephin 500 mg solution for injection RxNorm: 271640 1ml Milliliter(s) Inj 09/24/2013 09/24/2013 Inactive Rocephin 500 mg solution for injection RxNorm: 784885 1 Milliliter(s) Inj 09/19/2013 09/19/2013 Inactive Bystolic 5 mg tablet RxNorm: 293015 1 1/2 Tablet(s) PO daily 09/17/2013 03/15/2014 Inactive 1 1/2 daily may have 90 day if cheaper Bystolic 5 mg tablet RxNorm: 108566 1 1/2 Tablet(s) PO daily 09/17/2013 09/16/2013 Inactive 1 1/2 daily Lipitor 10 mg tablet RxNorm: 913771 Tablet(s) PO TAKE ONE TABLET BY MOUTH EVERY DAY 09/12/2013 01/13/2014 Inactive hydrocodone 10 mg-acetaminophen 325 mg tablet RxNorm: 253637 Tablet(s) PO TAKE ONE TO TWO TABLETS BY MOUTH EVERY 6 HOURS NEEDED FOR PAIN 09/09/2013 10/29/2017 Inactive (Appended: Controlled substance eRx refill - RxReferenceNumber: [id number]) hydrocodone 10 mg-acetaminophen 325 mg tablet RxNorm: 604096 1 Tablet(s) PO Q6 PRN 09/09/2013 02/06/2014 Inactive hydrocodone 10 mg-acetaminophen 325 mg tablet RxNorm: 320141 Tablet(s) PO TAKE ONE TO TWO TABLETS BY MOUTH EVERY 6 HOURS NEEDED FOR PAIN 09/06/2013 10/29/2017 Inactive (Appended: Controlled substance eRx refill - RxReferenceNumber: [id number]) Norvasc 10 mg tablet RxNorm: 550421 Tablet(s) PO TAKE ONE TABLET BY MOUTH EVERY DAY 09/05/2013 10/25/2015 Inactive trazodone 50 mg tablet RxNorm: 768474 1 1/2 Tablet(s) PO QHS 09/03/2013 03/17/2014 Inactive 75q hs x 2 week may increase to 100mg if nec after that nystatin 100,000 unit/mL oral suspension RxNorm: 723170 6 Milliliter(s) PO QID 08/06/2013 08/15/2013 Inactive Flonase 50 mcg/actuation nasal spray,suspension RxNorm: 341707 2 [place] NASAL daily 08/06/2013 03/03/2014 Inactive nystatin 100,000 unit/mL oral suspension RxNorm: 202159 6 Unit(s) PO QID 08/05/2013 08/05/2013 Inactive Phenergan with Codeine Syrup RxNorm: 5 Milliliter(s) PO Q4 PRN 08/05/2013 12/02/2013 Inactive 8 ounces alprazolam 0.25 mg tablet RxNorm: 221748 1 Tablet(s) PO QDAY PRN 07/29/2013 01/14/2014 Inactive Diflucan 150 mg tablet RxNorm: 469876 1 Tablet(s) PO daily 07/24/2013 07/26/2013 Inactive hydrochlorothiazide 25 mg tablet RxNorm: 827451 Tablet(s) PO TAKE ONE TABLET BY MOUTH EVERY DAY MUST CALL MD FOR APPOINTMENT 07/19/2013 03/05/2014 Inactive Phenergan with Codeine Syrup RxNorm: 10 Milliliter(s) PO Q4 PRN 07/10/2013 08/04/2013 Inactive 8 ounces Rocephin 500 mg solution for injection RxNorm: 1942158 1 Inj 07/10/2013 07/10/2013 Inactive cefdinir 300 mg capsule RxNorm: 526786 1 Capsule(s) PO BID 07/10/2013 07/16/2013 Inactive prednisone 10 mg tablet RxNorm: 356574 3 Tablet(s) PO daily 07/10/2013 07/14/2013 Inactive Carafate 100 mg/mL oral suspension RxNorm: 386411 10 Milliliter(s) PO Q6 PRN pt to take carafate 10mL every 6 hours as needed. 07/10/2013 08/05/2014 Inactive Kenalog 40 mg/mL suspension for injection RxNorm: 0294612 1 Milliliter(s) Inj 07/10/2013 07/10/2013 Inactive trazodone 50 mg tablet RxNorm: 097346 1 Tablet(s) PO QHS 07/10/2013 09/02/2013 Inactive sulfamethoxazole 800 mg-trimethoprim 160 mg tablet RxNorm: 977543 1 Tablet(s) PO BID 06/03/2013 06/12/2013 Inactive Synthroid 125 mcg tablet RxNorm: 855454 1 Tablet(s) PO daily 05/07/2013 09/23/2013 Inactive Bystolic 10 mg tablet RxNorm: 188304 1.5 Tablet(s) PO daily 05/07/2013 09/03/2013 Inactive Voltaren 1 % Topical Gel RxNorm: 574086 4 Gram(s) TOP QID apply 4 grams to knees, 2 grams to hands and ankles four times daily. 05/07/2013 09/03/2013 Inactive hydrocodone 10 mg-acetaminophen 325 mg tablet RxNorm: 435062 1 Tablet(s) PO Q6 PRN 04/23/2013 09/09/2013 Inactive Norvasc 10 mg tablet RxNorm: 789064 Tablet(s) PO TAKE ONE TABLET BY MOUTH EVERY DAY 04/23/2013 09/04/2013 Inactive alprazolam 0.25 mg tablet RxNorm: 955230 1 Tablet(s) PO QDAY PRN 03/25/2013 07/22/2013 Inactive Bystolic 10 mg tablet RxNorm: 321173 1 Tablet(s) PO daily TAKE ONE TABLET BY MOUTH EVERY DAY 03/25/2013 05/06/2013 Inactive zolpidem 10 mg tablet RxNorm: 623643 1 Tablet(s) PO HS PRN 03/25/2013 07/09/2013 Inactive gentamicin 0.3 % Eye Drops RxNorm: 913694 3 Drop(s) OPH QID three gtts to each eye QID x 7 days 03/11/2013 03/10/2013 Inactive gentamicin 0.3 % eye drops RxNorm: 186980 3 Drop(s) OPH QID three gtts to each eye QID x 7 days 03/11/2013 03/17/2013 Inactive Nexium 40 mg capsule,delayed release RxNorm: 049385 Capsule(s) PO TAKE ONE CAPSULE BY MOUTH EVERY DAY 02/15/2013 02/17/2014 Inactive Cymbalta 60 mg capsule,delayed release RxNorm: 622922 Capsule(s) PO TAKE ONE CAPSULE BY MOUTH TWICE A DAY 02/15/2013 02/17/2014 Inactive hydrocodone 10 mg-acetaminophen 325 mg tablet RxNorm: 8448880 1 Tablet(s) PO Q6 PRN 01/22/2013 04/22/2013 Inactive Lipitor 10 mg tablet RxNorm: 969562 Tablet(s) PO TAKE ONE TABLET BY MOUTH EVERY DAY 01/07/2013 09/11/2013 Inactive Cymbalta 60 mg capsule,delayed release RxNorm: 613707 Capsule(s) PO TAKE ONE CAPSULE BY MOUTH TWICE A DAY 01/02/2013 02/14/2013 Inactive Synthroid 100 mcg tablet RxNorm: 488406 1 Tablet(s) PO 12/03/2012 05/06/2013 Inactive Enablex 7.5 mg tablet,extended release RxNorm: 119853 1 Tablet(s) PO daily 11/28/2012 11/27/2012 Inactive Enablex 7.5 mg tablet,extended release RxNorm: 878972 1 Tablet(s) PO daily 11/28/2012 11/28/2012 Inactive scopolamine 1.5 mg 72 hr Transderm Patch RxNorm: 065604 1 Milligram(s) TD q72 hours 11/26/2012 05/06/2013 Inactive hydrochlorothiazide 25 mg tablet RxNorm: 605552 Tablet(s) PO TAKE ONE TABLET BY MOUTH EVERY DAY MUST CALL MD FOR APPOINTMENT 11/24/2012 07/18/2013 Inactive Cymbalta 60 mg capsule,delayed release RxNorm: 157641 Capsule(s) PO TAKE ONE CAPSULE BY MOUTH TWICE A DAY 10/26/2012 01/01/2013 Inactive Bystolic 10 mg tablet RxNorm: 681018 Tablet(s) PO TAKE ONE TABLET BY MOUTH EVERY DAY 10/12/2012 03/25/2013 Inactive zolpidem 10 mg tablet RxNorm: 397507 1 Tablet(s) PO HS PRN 10/02/2012 01/29/2013 Inactive alprazolam 0.25 mg tablet RxNorm: 960409 1 Tablet(s) PO QDAY PRN 10/02/2012 01/29/2013 Inactive Kenalog 40 mg/mL Susp for Injection RxNorm: 9953725 1 Milliliter(s) Inj 09/24/2012 09/24/2012 Inactive Diflucan 150 mg tablet RxNorm: 328045 1 Tablet(s) PO daily 09/24/2012 09/30/2012 Inactive acyclovir 400 mg tablet RxNorm: 589854 1 Tablet(s) PO QID 09/24/2012 10/08/2012 Inactive Cipro 500 mg tablet RxNorm: 211228 1 Tablet(s) PO BID 09/24/2012 09/30/2012 Inactive Tamiflu 75 mg capsule RxNorm: 135037 1 Capsule(s) PO BID 09/17/2012 09/16/2012 Inactive Tamiflu 75 mg capsule RxNorm: 484481 1 Capsule(s) PO BID 09/17/2012 09/16/2012 Inactive Tamiflu 75 mg capsule RxNorm: 585625 1 Capsule(s) PO BID please disregard order for #14 09/17/2012 09/21/2012 Inactive fluconazole 150 mg tablet RxNorm: 575173 1 Tablet(s) PO daily 09/10/2012 09/13/2012 Inactive ketoconazole 2 % Topical Cream RxNorm: 920675 Application TOP BID apply to affected area BID until gone 08/31/2012 11/01/2017 Inactive Norvasc 10 mg tablet RxNorm: 669263 Tablet(s) PO TAKE ONE TABLET BY MOUTH EVERY DAY 08/29/2012 04/22/2013 Inactive Cipro 500 mg tablet RxNorm: 689220 1 Tablet(s) PO BID 08/17/2012 08/26/2012 Inactive Flagyl 500 mg tablet RxNorm: 377597 1 Tablet(s) PO TID 08/17/2012 08/23/2012 Inactive Cipro 500 mg tablet RxNorm: 093389 1 Tablet(s) PO BID 08/17/2012 08/16/2012 Inactive zolpidem 10 mg tablet RxNorm: 369146 1 Tablet(s) PO HS PRN 08/17/2012 09/15/2012 Inactive Flagyl 500 mg tablet RxNorm: 291377 1 Tablet(s) PO TID 08/17/2012 08/16/2012 Inactive alprazolam 0.25 mg tablet RxNorm: 986032 1 Tablet(s) PO QDAY PRN 08/17/2012 09/15/2012 Inactive [place] Allergy 180 mg tablet RxNorm: 954402 1 Tablet(s) PO daily 08/08/2012 02/03/2013 Inactive hydrochlorothiazide 25 mg tablet RxNorm: 970265 1/2 Tablet(s) PO daily 08/08/2012 11/05/2012 Inactive needs appt Carafate 1 gram tablet RxNorm: 762548 1 Tablet(s) PO QID mix with 10 cc water and dissolve into slurry 08/08/2012 08/21/2012 Inactive hydrocodone 10 mg-acetaminophen 325 mg tablet RxNorm: 8550349 1 Tablet(s) PO Q6 PRN 08/08/2012 01/21/2013 Inactive Synthroid 100 mcg tablet RxNorm: 657566 1 Tablet(s) PO 08/08/2012 12/02/2012 Inactive Cymbalta 60 mg capsule,delayed release RxNorm: 912572 Capsule(s) PO 07/23/2012 10/25/2012 Inactive TAKE ONE CAPSULE BY MOUTH TWICE A DAY Nexium 40 mg capsule,delayed release RxNorm: 037400 Capsule(s) PO 06/20/2012 02/14/2013 Inactive TAKE ONE CAPSULE BY MOUTH EVERY DAY Lipitor 10 mg tablet RxNorm: 949423 Tablet(s) PO 06/20/2012 01/06/2013 Inactive TAKE ONE TABLET BY MOUTH EVERY DAY hydrochlorothiazide 25 mg tablet RxNorm: 807923 1 Tablet(s) PO daily 06/19/2012 08/07/2012 Inactive needs appt alprazolam 0.25 mg tablet RxNorm: 430343 1 Tablet(s) PO QDAY PRN 06/05/2012 07/04/2012 Inactive zolpidem 10 mg tablet RxNorm: 898388 1 Tablet(s) PO HS PRN 06/05/2012 07/04/2012 Inactive zolpidem 10 mg tablet RxNorm: 156439 1 Tablet(s) PO HS PRN 04/16/2012 05/15/2012 Inactive alprazolam 0.25 mg tablet RxNorm: 315195 1 Tablet(s) PO QDAY PRN 04/16/2012 05/15/2012 Inactive Cymbalta 60 mg capsule,delayed release RxNorm: 782741 1 Capsule(s) PO BID 03/22/2012 07/19/2012 Inactive Fioricet 50 mg-325 mg-40 mg tablet RxNorm: 467567 1 Tablet(s) PO Q4 PRN 03/22/2012 11/24/2013 Inactive Bystolic 10 mg tablet RxNorm: 764702 Tablet(s) PO 03/22/2012 10/11/2012 Inactive TAKE ONE TABLET BY MOUTH EVERY DAY potassium chloride ER 10 mEq Tab RxNorm: 066407 1 Tablet(s) PO daily 02/24/2012 03/01/2012 Inactive Lasix 20 mg Tab RxNorm: 417243 1 Tablet(s) PO daily 02/22/2012 02/21/2012 Inactive KCL 10 meq RxNorm: 1 PO daily 02/22/2012 02/21/2012 Inactive potassium chloride ER 10 mEq Tab RxNorm: 993004 1 Tablet(s) PO daily 02/22/2012 02/21/2012 Inactive Lasix 20 mg Tab RxNorm: 412567 1 Tablet(s) PO daily 02/22/2012 02/28/2012 Inactive KCL 10 meq RxNorm: 1 PO daily 02/22/2012 02/22/2012 Inactive potassium chloride ER 10 mEq Tab RxNorm: 952009 1 Tablet(s) PO daily 02/22/2012 02/23/2012 Inactive Rocephin 500 mg Solution for Injection RxNorm: 8095649 Inj 02/15/2012 02/15/2012 Inactive Nexium 40 mg capsule,delayed release RxNorm: 020710 1 Capsule(s) PO daily 02/15/2012 No Stop Date Active Bystolic 10 mg Tab RxNorm: 340672 1 Tablet(s) PO daily 02/15/2012 08/12/2012 Inactive alprazolam 0.25 mg tablet RxNorm: 326531 1 Tablet(s) PO QDAY PRN 01/31/2012 02/29/2012 Inactive zolpidem 10 mg tablet RxNorm: 748947 1 Tablet(s) PO HS PRN 01/31/2012 02/29/2012 Inactive alprazolam 0.25 mg Tab RxNorm: 104898 1 Tablet(s) PO QDAY PRN 12/16/2011 01/14/2012 Inactive zolpidem 10 mg Tab RxNorm: 139067 1 Tablet(s) PO HS PRN 12/16/2011 01/14/2012 Inactive Norvasc 10 mg tablet RxNorm: 531899 1 Tablet(s) PO daily 12/02/2011 02/21/2012 Inactive Lipitor 10 mg tablet RxNorm: 170928 1 Tablet(s) PO daily 11/16/2011 05/13/2012 Inactive zolpidem 10 mg Tab RxNorm: 577270 1 Tablet(s) PO HS PRN 10/26/2011 12/15/2011 Inactive alprazolam 0.25 mg Tab RxNorm: 231351 1 Tablet(s) PO QDAY PRN 10/26/2011 12/15/2011 Inactive hydrochlorothiazide 25 mg tablet RxNorm: 350324 1 Tablet(s) PO daily 09/05/2011 03/02/2012 Inactive Synthroid 75 mcg tablet RxNorm: 650682 1 Tablet(s) PO daily 08/01/2011 02/26/2012 Inactive Abilify 2 mg Tab RxNorm: 915334 1 Tablet(s) PO QHS 08/01/2011 09/10/2012 Inactive dicyclomine 10 mg Cap RxNorm: 240914 1 Capsule(s) PO TID 08/01/2011 10/29/2011 Inactive alprazolam 0.25 mg Tab RxNorm: 381358 1 Tablet(s) PO QDAY PRN 07/26/2011 10/25/2011 Inactive Fioricet 50 mg-325 mg-40 mg tablet RxNorm: 106144 1 Tablet(s) PO Q4 PRN 07/14/2011 03/21/2012 Inactive Rocephin 500 mg Solution for Injection RxNorm: 7685824 1 Milliliter(s) Inj 07/14/2011 08/01/2011 Inactive Nexium 40 mg Capsule, delayed release RxNorm: 250946 1 Capsule(s) PO daily 05/23/2011 10/06/2011 Inactive Bystolic 10 mg tablet RxNorm: 199535 1 Tablet(s) PO daily 05/23/2011 11/18/2011 Inactive Bystolic 10 mg Tab RxNorm: 880065 1 Tablet(s) PO daily 05/23/2011 05/22/2011 Inactive alprazolam 0.25 mg Tab RxNorm: 871815 1 Tablet(s) PO QDAY PRN 05/23/2011 07/25/2011 Inactive Influenza Virus Vaccine 0.5 mL RxNorm: IM 05/23/2011 05/23/2011 Inactive zolpidem 10 mg Tab RxNorm: 192128 1 Tablet(s) PO HS PRN 05/23/2011 10/25/2011 Inactive Rocephin 500 mg Solution for Injection RxNorm: 0976802 1 Milliliter(s) Inj 05/03/2011 07/14/2011 Inactive Kenalog 40 mg/mL Susp for Injection RxNorm: 2989960 1 Milliliter(s) Inj 05/03/2011 07/14/2011 Inactive Bactrim DS 800 mg-160 mg Tab RxNorm: 404864 1 Tablet(s) PO BID 05/03/2011 08/01/2011 Inactive Bystolic 10 mg tablet RxNorm: 186954 1 Tablet(s) PO daily No Start Date Active Flonase 50 mcg/actuation nasal spray,suspension RxNorm: 4423141 2 [place] NASAL daily No Start Date 08/05/2013 Inactive Levaquin 500 mg tablet RxNorm: 364604 Tablet(s) PO No Start Date 04/19/2017 Inactive Duragesic 50 mcg/hr transdermal patch RxNorm: 125367 1 TD q72 hours No Start Date 01/13/2014 Inactive Vesicare 5 mg tablet RxNorm: 102546 1 Tablet(s) PO daily No Start Date 01/06/2015 Inactive Celebrex 200 mg capsule RxNorm: 216870 1 Capsule(s) PO daily No Start Date 04/02/2014 Inactive zolpidem 10 mg Tab RxNorm: 176969 1 Tablet(s) PO HS PRN No Start Date 05/22/2011 Inactive Zyrtec 10 mg Tab RxNorm: 4771110 1 Tablet(s) PO daily No Start Date 08/08/2012 Inactive Flonase 50 mcg/actuation nasal spray,suspension RxNorm: 8946723 1 [place] NASAL daily No Start Date 11/07/2017 Inactive 1 spray to each nostril daily Nexium 40 mg Cap RxNorm: 867488 1 Capsule(s) PO daily No Start Date 05/22/2011 Inactive ketoconazole 2 % Topical Cream RxNorm: 730533 Application TOP BID apply to affected area BID until gone No Start Date 08/30/2012 Inactive aspirin 81 mg tablet RxNorm: 480656 1 Tablet(s) PO daily No Start Date 11/13/2017 Inactive Cymbalta 60 mg capsule,delayed release RxNorm: 886254 1 Capsule(s) PO BID No Start Date 03/21/2012 Inactive alprazolam 0.25 mg Tab RxNorm: 596540 1 Tablet(s) PO QDAY PRN No Start Date 05/22/2011 Inactive baclofen 10 mg tablet RxNorm: 390862 1 Tablet(s) PO TID as needed muscle spasms No Start Date 11/14/2017 Inactive Toprol XL 100 mg 24 hr Tab RxNorm: 990251 1 Tablet(s) PO BID No Start Date 04/25/2011 Inactive Xanax 0.25 mg tablet RxNorm: 059683 1 Tablet(s) PO daily as needed No Start Date 12/27/2015 Inactive Bystolic 10 mg Tab RxNorm: 768514 1 Tablet(s) PO daily No Start Date 05/22/2011 Inactive Fioricet 50 mg-325 mg-40 mg Tab RxNorm: 846018 1 Tablet(s) PO Q4 PRN No Start Date 07/13/2011 Inactive albuterol sulfate HFA 90 mcg/Actuation Aerosol Inhaler RxNorm: 4885139 1 INH Q4 PRN No Start Date 01/06/2015 Inactive Imitrex 50 mg tablet RxNorm: 214963 1 Tablet(s) PO Q8 as needed may repeat x1 dose in 1 hour of inital dose. No Start Date 02/24/2016 Inactive dc fioricet Tessalon 200 mg Cap RxNorm: 184644 1 Capsule(s) PO Q4 PRN No Start Date 02/14/2012 Inactive Zithromax Z-Sergio 250 mg tablet RxNorm: 771842 Tablet(s) PO No Start Date 11/10/2013 Inactive hydrochlorothiazide 25 mg Tab RxNorm: 830352 1 Tablet(s) PO daily No Start Date 09/04/2011 Inactive Fish Oil 1,000 mg Cap RxNorm: 1 Capsule(s) PO TID No Start Date 11/08/2017 Inactive Deplin 15 mg Tab RxNorm: 1 Tablet(s) PO daily No Start Date 08/01/2011 Inactive Brilinta 90 mg tablet RxNorm: 2568531 1 Tablet(s) PO BID No Start Date 11/23/2015 Inactive Synthroid 75 mcg Tab RxNorm: 967369 1 Tablet(s) PO daily No Start Date 07/31/2011 Inactive ciprofloxacin 0.3 % eye drops RxNorm: 507089 2 Drop(s) ophthalmic (eye) Q2H while awake x 2 days, then Q4H x 5 days No Start Date 11/22/2017 Inactive scopolamine 1.5 mg 72 hr Transderm Patch RxNorm: 652253 1 Milligram(s) TD q72 hours No Start Date 11/25/2012 Inactive hydrocodone-acetaminophen 10 mg-325 mg tablet RxNorm: 9363069 1 Tablet(s) PO Q6 PRN No Start Date 08/07/2012 Inactive Phenergan with Codeine Syrup RxNorm: 5-10 Milliliter(s) PO Q6 PRN No Start Date 02/14/2012 Inactive Norvasc 10 mg Tab RxNorm: 036931 1 Tablet(s) PO daily No Start Date 12/01/2011 Inactive Zithromax Z-Sergio 250 mg Tab RxNorm: 020745 Tablet(s) PO No Start Date 08/01/2011 Inactive Medication Administered Medication Codes Instructions Start Date Status ceftriaxone 1 gram solution for injection RxNorm: 5354216 02/20/2019 No longer Active ceftriaxone 500 mg solution for injection RxNorm: 8417964 05/28/2018 No longer Active Kenalog 40 mg/mL suspension for injection RxNorm: 7111004 Milliliter 05/28/2018 No longer Active ceftriaxone 500 mg solution for injection RxNorm: 9176560 500Milligram 01/19/2018 No longer Active Kenalog 40 mg/mL suspension for injection RxNorm: 5910561 1Milliliter 01/19/2018 No longer Active Kenalog 40 mg/mL suspension for injection RxNorm: 2375886 1Milliliter 06/27/2017 No longer Active Kenalog 40 mg/mL suspension for injection RxNorm: 5293556 Milliliter 04/20/2017 No longer Active Kenalog 40 mg/mL suspension for injection RxNorm: 9255842 1Milliliter 03/14/2017 No longer Active ceftriaxone 500 mg solution for injection RxNorm: 9614313 1Milliliter 11/28/2016 No longer Active Kenalog 40 mg/mL suspension for injection RxNorm: 8952554 Milliliter 11/07/2016 No longer Active ceftriaxone 500 mg solution for injection RxNorm: 9450555 11/07/2016 No longer Active ceftriaxone 500 mg solution for injection RxNorm: 0253221 12/07/2015 No longer Active Kenalog 40 mg/mL suspension for injection RxNorm: 3146637 1Milliliter 11/24/2015 No longer Active ceftriaxone 500 mg solution for injection RxNorm: 9422685 Milliliter 11/24/2015 No longer Active promethazine 25 mg/mL injection solution RxNorm: 137103 Milliliter 08/27/2015 No longer Active ketorolac 60 mg/2 mL intramuscular solution RxNorm: 409282 Milliliter 08/27/2015 No longer Active Kenalog 40 mg/mL suspension for injection RxNorm: 6936486 Milliliter 08/10/2015 No longer Active ceftriaxone 500 mg solution for injection RxNorm: 7988044 08/10/2015 No longer Active ceftriaxone 500 mg solution for injection RxNorm: 0115497 1Milliliter 07/28/2015 No longer Active Kenalog 40 mg/mL suspension for injection RxNorm: 1864408 Milliliter 03/19/2015 No longer Active Kenalog 40 mg/mL suspension for injection RxNorm: 8931729 Milliliter 06/23/2014 No longer Active ceftriaxone 500 mg solution for injection RxNorm: 315354 06/23/2014 No longer Active Rocephin 500 mg solution for injection RxNorm: 111951 1mlMilliliter 09/24/2013 No longer Active Rocephin 500 mg solution for injection RxNorm: 984756 1Milliliter 09/19/2013 No longer Active Rocephin 500 mg solution for injection RxNorm: 5691406 1 07/10/2013 No longer Active Kenalog 40 mg/mL suspension for injection RxNorm: 8515538 1Milliliter 07/10/2013 No longer Active Kenalog 40 mg/mL Susp for Injection RxNorm: 0736026 1Milliliter 09/24/2012 No longer Active Rocephin 500 mg Solution for Injection RxNorm: 6778909 02/15/2012 No longer Active Influenza Virus Vaccine [...] (3rd IS) 4.03 uIU/mL 02/15/2019 Free T4 Mnm294 FREE T4 0.71 ng/dL 02/15/2019 Lipid Ord30 CHOL 193 mg/dL 01/01/2019 Lipid Ord30 HDL 45.0 mg/dl 01/01/2019 Lipid Ord30 TRIG 111 mg/dL 01/01/2019 Lipid Ord30 LDL 126 mg/dL 01/01/2019 Lipid Ord30 C/HDL 4.3 Ratio 01/01/2019 Comp Metabolic Eys526 NA 140 mEq/L 01/01/2019 Comp Metabolic Sto826 K 3.8 mEq/L 01/01/2019 Comp Metabolic Nxs832 CL 103 mEq/L 01/01/2019 Comp Metabolic Dvx921 CO2 28.0 mEq/L 01/01/2019 Comp Metabolic Mxr579 ANION GAP 13 01/01/2019 Comp Metabolic Nih331 GLUCOSE 93 mg/dL 01/01/2019 Comp Metabolic Cyz010 Creat 0.7 mg/dL 01/01/2019 Comp Metabolic Oby867 eGFR 86 ml/min/1.73m2 01/01/2019 Comp Metabolic Pgk408 BUN 21 mg/dL 01/01/2019 Comp Metabolic Oat412 B/C Ratio 29.6 Ratio 01/01/2019 Comp Metabolic Gce867 CALCIUM 9.4 mg/dL 01/01/2019 Comp Metabolic Bfv971 ALK PHOS 67 U/L 01/01/2019 Comp Metabolic Vgy919 AST(SGOT) 27 U/L 01/01/2019 Comp Metabolic Jrp495 ALT(SGPT) 30 U/L 01/01/2019 Comp Metabolic Ofw336 BILI T 0.5 mg/dL 01/01/2019 Comp Metabolic Vfp593 ALBUMIN 4.0 g/dL 01/01/2019 Comp Metabolic Bms538 TPRO 6.8 g/dL 01/01/2019 Comp Metabolic Iqd907 GLOB 2.8 g/dL 01/01/2019 Comp Metabolic Qqy317 A/G Ratio 1.4 Ratio 01/01/2019 Comp Metabolic Xyg010 Osmo 282 mOsmo 01/01/2019 Free T4 Bfq175 FREE T4 0.71 ng/dL 10/31/2018 Tsh Ord6 TSH (3rd IS) 7.87 uIU/mL 10/31/2018 Lipid Ord30 CHOL 170 mg/dL 10/31/2018 Lipid Ord30 HDL 53.0 mg/dl 10/31/2018 Lipid Ord30 TRIG 85 mg/dL 10/31/2018 Lipid Ord30 LDL 100 mg/dL 10/31/2018 Lipid Ord30 C/HDL 3.2 Ratio 10/31/2018 Comp Metabolic Gbk000 NA 142 mEq/L 10/31/2018 Comp Metabolic Nsa565 K 4.0 mEq/L 10/31/2018 Comp Metabolic Mvc343 CL 106 mEq/L 10/31/2018 Comp Metabolic Owl893 CO2 27.0 mEq/L 10/31/2018 Comp Metabolic Udf368 ANION GAP 13 10/31/2018 Comp Metabolic Osx682 GLUCOSE 114 mg/dL 10/31/2018 Comp Metabolic Cwr357 Creat 0.7 mg/dL 10/31/2018 Comp Metabolic Srz391 eGFR 90 ml/min/1.73m2 10/31/2018 Comp Metabolic Loe892 BUN 21 mg/dL 10/31/2018 Comp Metabolic Fps564 B/C Ratio 30.9 Ratio 10/31/2018 Comp Metabolic Wgp940 CALCIUM 9.7 mg/dL 10/31/2018 Comp Metabolic Mmk777 ALK PHOS 63 U/L 10/31/2018 Comp Metabolic Yun779 AST(SGOT) 24 U/L 10/31/2018 Comp Metabolic Akh770 ALT(SGPT) 21 U/L 10/31/2018 Comp Metabolic Xat708 BILI T 0.6 mg/dL 10/31/2018 Comp Metabolic Zru812 ALBUMIN 4.1 g/dL 10/31/2018 Comp Metabolic Tzv550 TPRO 6.6 g/dL 10/31/2018 Comp Metabolic Mpu332 GLOB 2.5 g/dL 10/31/2018 Comp Metabolic Hxa946 A/G Ratio 1.7 Ratio 10/31/2018 Comp Metabolic Tbg378 Osmo 287 mOsmo 10/31/2018 Cbc With Differential [...] 30.9 pg 10/31/2018 Cbc With Differential Ord2 [place]% 8.0 % 10/31/2018 Cbc With Differential Ord2 [...] 1.88 K/ul 10/31/2018 Cbc With Differential Ord2 [place] ABS# 0.6 K/ul 10/31/2018 Cbc With Differential Ord2 Eos ABS# 0.5 K/ul 10/31/2018 Cbc With Differential Ord2 Baso ABS# 0.1 K/ul 10/31/2018 Comp Metabolic Qfs740 NA 141 mEq/L 09/12/2017 Comp Metabolic Yrm790 K 4.1 mEq/L 09/12/2017 Comp Metabolic Jyz818 CL 105 mEq/L 09/12/2017 Comp Metabolic Obq045 CO2 30.0 mEq/L 09/12/2017 Comp Metabolic Khb054 ANION GAP 10 09/12/2017 Comp Metabolic Bks521 GLUCOSE 97 mg/dL 09/12/2017 Comp Metabolic Pih802 Creat 0.7 mg/dL 09/12/2017 Comp Metabolic Udg496 eGFR 91 ml/min/1.73m2 09/12/2017 Comp Metabolic Mvm021 BUN 18 mg/dL 09/12/2017 Comp Metabolic Rpt202 B/C Ratio 26.5 Ratio 09/12/2017 Comp Metabolic Mxa331 CALCIUM 9.7 mg/dL 09/12/2017 Comp Metabolic Uef460 ALK PHOS 60 U/L 09/12/2017 Comp Metabolic Wgh899 AST(SGOT) 22 U/L 09/12/2017 Comp Metabolic Bxg327 ALT(SGPT) 23 U/L 09/12/2017 Comp Metabolic Wzc779 BILI T 0.4 mg/dL 09/12/2017 Comp Metabolic Fha627 ALBUMIN 3.8 g/dL 09/12/2017 Comp Metabolic Viz054 TPRO 6.4 g/dL 09/12/2017 Comp Metabolic Vaj994 GLOB 2.6 g/dL 09/12/2017 Comp Metabolic Vle493 A/G Ratio 1.5 Ratio 09/12/2017 Comp Metabolic Xjy120 Osmo 283 mOsmo 09/12/2017 Cbc With Differential [...] 30.7 pg 09/12/2017 Cbc With Differential Ord2 [place]% 7.2 % 09/12/2017 Cbc With Differential Ord2 [...] 2.46 K/ul 09/12/2017 Cbc With Differential Ord2 [place] ABS# 0.6 K/ul 09/12/2017 Cbc With Differential [...] 31.4 pg 11/07/2016 Cbc With Differential Ord2 [place]% 6.1 % 11/07/2016 Cbc With Differential Ord2 [...] 2.48 K/ul 11/07/2016 Cbc With Differential Ord2 [place] ABS# 0.6 K/ul 11/07/2016 Cbc With Differential Ord2 Eos ABS# 0.3 K/ul 11/07/2016 Cbc With Differential Ord2 Baso ABS# 0.1 K/ul 11/07/2016 Comp Metabolic Hgi339 NA 139 mEq/L 11/07/2016 Comp Metabolic Onk311 K 3.8 mEq/L 11/07/2016 Comp Metabolic Zqm230 CL 106 mEq/L 11/07/2016 Comp Metabolic Onn099 CO2 25.0 mEq/L 11/07/2016 Comp Metabolic Gas908 ANION GAP 12 11/07/2016 Comp Metabolic Jam976 GLUCOSE 98 mg/dL 11/07/2016 Comp Metabolic Xjb458 Creat 0.8 mg/dL 11/07/2016 Comp Metabolic Isf669 eGFR 71 ml/min/1.73m2 11/07/2016 Comp Metabolic Oti351 BUN 36 mg/dL 11/07/2016 Comp Metabolic Idk219 B/C Ratio 42.9 Ratio 11/07/2016 Comp Metabolic Kxv637 CALCIUM 9.9 mg/dL 11/07/2016 Comp Metabolic Rir607 ALK PHOS 57 U/L 11/07/2016 Comp Metabolic Mzm003 AST(SGOT) 24 U/L 11/07/2016 Comp Metabolic Zfx709 ALT(SGPT) 28 U/L 11/07/2016 Comp Metabolic Mdc049 BILI T 0.4 mg/dL 11/07/2016 Comp Metabolic Ecv719 ALBUMIN 4.2 g/dL 11/07/2016 Comp Metabolic Sdp485 TPRO 7.0 g/dL 11/07/2016 Comp Metabolic Alo653 GLOB 2.8 g/dL 11/07/2016 Comp Metabolic Pky757 A/G Ratio 1.5 Ratio 11/07/2016 Comp Metabolic Ppj787 Osmo 286 mOsmo 11/07/2016 Free T4 Kqk342 FREE T4 0.75 ng/dL 11/07/2016 Tsh Ord6 hTSH II 3.46 uIU/mL 11/07/2016 Comp Metabolic Gaw402 NA 138 mEq/L 05/10/2016 Comp Metabolic Wwl344 K 3.8 mEq/L 05/10/2016 Comp Metabolic Hcy438 CL 102 mEq/L 05/10/2016 Comp Metabolic Hsl149 CO2 29.0 mEq/L 05/10/2016 Comp Metabolic Exn617 ANION GAP 11 05/10/2016 Comp Metabolic Llm892 GLUCOSE 107 mg/dL 05/10/2016 Comp Metabolic Fft892 Creat 0.7 mg/dL 05/10/2016 Comp Metabolic Bmr979 eGFR 93 ml/min/1.73m2 05/10/2016 Comp Metabolic Dto964 BUN 18 mg/dL 05/10/2016 Comp Metabolic Gqg708 B/C Ratio 26.9 Ratio 05/10/2016 Comp Metabolic Ovv635 CALCIUM 9.8 mg/dL 05/10/2016 Comp Metabolic Hrh101 ALK PHOS 60 U/L 05/10/2016 Comp Metabolic Qfs017 AST(SGOT) 21 U/L 05/10/2016 Comp Metabolic Tvd724 ALT(SGPT) 23 U/L 05/10/2016 Comp Metabolic Ysg823 BILI T 0.5 mg/dL 05/10/2016 Comp Metabolic Hfi506 ALBUMIN 4.1 g/dL 05/10/2016 Comp Metabolic Kwa087 TPRO 6.7 g/dL 05/10/2016 Comp Metabolic Otw667 GLOB 2.7 g/dL 05/10/2016 Comp Metabolic Rko573 A/G Ratio 1.5 Ratio 05/10/2016 Comp Metabolic Yju172 Osmo 278 mOsmo 05/10/2016 Lipid Ord30 CHOL 169 mg/dL 05/10/2016 Lipid Ord30 HDL 50.0 mg/dl 05/10/2016 Lipid Ord30 TRIG 161 mg/dL 05/10/2016 Lipid Ord30 LDL 87 mg/dL 05/10/2016 Lipid Ord30 C/HDL 3.4 Ratio 05/10/2016 Comp Metabolic Ltc321 NA 137 mEq/L 06/12/2015 Comp Metabolic Loz068 K 3.8 mEq/L 06/12/2015 Comp Metabolic Snp257 CL 104 mEq/L 06/12/2015 Comp Metabolic Hhu299 CO2 24.0 mEq/L 06/12/2015 Comp Metabolic Mtk279 ANION GAP 13 06/12/2015 Comp Metabolic Kix622 GLUCOSE 92 mg/dL 06/12/2015 Comp Metabolic Yha983 Creat 0.7 mg/dL 06/12/2015 Comp Metabolic Svt152 eGFR 87 ml/min/1.73m2 06/12/2015 Comp Metabolic Ddd801 BUN 31 mg/dL 06/12/2015 Comp Metabolic Khy157 B/C Ratio 43.7 Ratio 06/12/2015 Comp Metabolic Bpo445 CALCIUM 10.0 mg/dL 06/12/2015 Comp Metabolic Ywv342 ALK PHOS 58 U/L 06/12/2015 Comp Metabolic Nom087 AST(SGOT) 32 U/L 06/12/2015 Comp Metabolic Yrb750 ALT(SGPT) 33 U/L 06/12/2015 Comp Metabolic Win019 BILI T 0.5 mg/dL 06/12/2015 Comp Metabolic Zrn484 ALBUMIN 4.1 g/dL 06/12/2015 Comp Metabolic Oii715 TPRO 6.6 g/dL 06/12/2015 Comp Metabolic Oyg138 GLOB 2.5 g/dL 06/12/2015 Comp Metabolic Sew665 A/G Ratio 1.6 Ratio 06/12/2015 Comp Metabolic Huv046 Osmo 280 mOsmo 06/12/2015 Cbc With Differential [...] Differential Ord2 RDW 14.2 % 06/12/2015 CBC 2425789 WBC 8.7 10e9/L 04/30/2013 CBC 3323920 RBC 4.63 10e12/L 04/30/2013 CBC 2921937 HGB 14.1 g/dL 04/30/2013 CBC 9210019 HCT DET 42.2 % 04/30/2013 CBC 6629708 MCV 91.1 fL 04/30/2013 CBC 5094501 MCH 30.5 pg 04/30/2013 CBC 7259775 MCHC 33.4 g/dL 04/30/2013 CBC 6373383 PLT 248 10e9/L 04/30/2013 CBC 7802274 MPV 12.1 fL 04/30/2013 CBC 8436976 LARA % 59.0 % 04/30/2013 CBC 9397503 LY % 27.6 % 04/30/2013 CBC 8190205 MON % 8.0 % 04/30/2013 CBC 0348496 EOS % 4.8 % 04/30/2013 CBC 8518254 BASO % 0.6 % 04/30/2013 CBC 0697091 RDW 13.3 % 04/30/2013 CBC 7884387 ABS LARA 5.13 10e9/L 04/30/2013 CBC 7260105 ABS LYMPH 2.40 10e9/L 04/30/2013 CBC 6899879 ABS MONO 0.70 10e9/L 04/30/2013 CBC 0554272 ABS EOS 0.42 10e9/L 04/30/2013 CBC 9073256 ABS BASO 0.05 10e9/L 04/30/2013 CBC 5256811 RDW-SD 43.1 fL 04/30/2013 TSH 5210427 TSH 4.339 uIU/ML 04/30/2013 A1C HPLC 6217805 A1C HPLC 39394-6 5.6 % 04/30/2013 FREE T4 5486175 FREE T4 0.84 NG/DL 04/30/2013 GFR CALC 2369412 GFR AA >60 ML/MIN 04/30/2013 GFR CALC 6193371 GFR NON-AA >60 ML/MIN 04/30/2013 CHEM 14 8626775 AST 22 U/L 04/30/2013 CHEM 14 8857250 ALT 22 IU/L 04/30/2013 CHEM 14 9655335 BUN 24 MG/DL 04/30/2013 CHEM 14 6114707 ALBUMIN 4.2 GM/DL 04/30/2013 CHEM 14 6806030 CHLORIDE 107 MMOL/L 04/30/2013 CHEM 14 6056758 BILI TOT 0.3 MG/DL 04/30/2013 CHEM 14 4218146 ALK PHOS 88 U/L 04/30/2013 CHEM 14 7688310 SODIUM 141 MMOL/L 04/30/2013 CHEM 14 5885943 CREATININE 0.60 MG/DL 04/30/2013 CHEM 14 0703064 CALCIUM 9.9 MG/DL 04/30/2013 CHEM 14 0727447 POTASSIUM 3.7 MMOL/L 04/30/2013 CHEM 14 1553679 PROT TOT 6.6 GM/DL 04/30/2013 CHEM 14 7164584 GLUCOSE 123 MG/DL 04/30/2013 CHEM 14 4586955 BICARB 25 MMOL/L 04/30/2013 CHEM 14 2095846 ANION GAP 9 MEQ/L 04/30/2013 LIPID GRP HDL TEST 46 MG/DL 04/30/2013 LIPID GRP TRIG 148 MG/DL 04/30/2013 LIPID GRP TEST LDL 75 MG/DL 04/30/2013 LIPID GRP CHOL 151 MG/DL 04/30/2013 LIPID GRP RCHOL/HDL 3.28 RATIO 04/30/2013 TSH 3394549 TSH 3.341 uIU/ML 11/29/2012 CBC 2019216 WBC 8.4 10e9/L 11/29/2012 CBC 4070724 RBC 4.77 10e12/L 11/29/2012 CBC 3658815 HGB 14.9 g/dL 11/29/2012 CBC 3752584 HCT DET 44.2 % 11/29/2012 CBC 3605520 MCV 92.7 fL 11/29/2012 CBC 6760749 MCH 31.2 pg 11/29/2012 CBC 0109434 MCHC 33.7 g/dL 11/29/2012 CBC 9293220 PLT 253 10e9/L 11/29/2012 CBC 6540149 MPV 11.8 fL 11/29/2012 CBC 2832110 LARA % 54.9 % 11/29/2012 CBC 8720657 LY % 29.0 % 11/29/2012 CBC 9723279 MON % 10.4 % 11/29/2012 CBC 8900630 EOS % 5.1 % 11/29/2012 CBC 0249332 BASO % 0.6 % 11/29/2012 CBC 5944317 RDW 13.8 % 11/29/2012 CBC 7075995 ABS LARA 4.61 10e9/L 11/29/2012 CBC 6097431 ABS LYMPH 2.44 10e9/L 11/29/2012 CBC 8768158 ABS MONO 0.87 10e9/L 11/29/2012 CBC 1164930 ABS EOS 0.43 10e9/L 11/29/2012 CBC 9791739 ABS BASO 0.05 10e9/L 11/29/2012 CBC 6300137 RDW-SD 45.9 fL 11/29/2012 CHEM 14 3006911 AST 25 U/L 11/29/2012 CHEM 14 3270860 ALT 26 IU/L 11/29/2012 CHEM 14 5716485 BUN 25 MG/DL 11/29/2012 CHEM 14 4061096 ALBUMIN 4.4 GM/DL 11/29/2012 CHEM 14 3619820 CHLORIDE 106 MMOL/L 11/29/2012 CHEM 14 2956247 BILI TOT 0.4 MG/DL 11/29/2012 CHEM 14 2896677 ALK PHOS 86 U/L 11/29/2012 CHEM 14 2201697 SODIUM 141 MMOL/L 11/29/2012 CHEM 14 4288307 CREATININE 0.80 MG/DL 11/29/2012 CHEM 14 5880097 CALCIUM 9.7 MG/DL 11/29/2012 CHEM 14 4454419 POTASSIUM 4.0 MMOL/L 11/29/2012 CHEM 14 2697654 PROT TOT 6.6 GM/DL 11/29/2012 CHEM 14 6418280 GLUCOSE 112 MG/DL 11/29/2012 CHEM 14 0404864 BICARB 29 MMOL/L 11/29/2012 CHEM 14 0739406 ANION GAP 6 MEQ/L 11/29/2012 A1C HPLC 2505390 A1C HPLC 00270-4 5.5 % 11/29/2012 LIPID GRP HDL TEST 54 MG/DL 11/29/2012 LIPID GRP TRIG 77 MG/DL 11/29/2012 LIPID GRP TEST LDL 78 MG/DL 11/29/2012 LIPID GRP CHOL 147 MG/DL 11/29/2012 LIPID GRP RCHOL/HDL 2.72 RATIO 11/29/2012 FREE T4 1551669 FREE T4 1.23 NG/DL 11/29/2012 GFR CALC 9659438 GFR AA >60 ML/MIN 11/29/2012 GFR CALC 4142923 GFR NON-AA >60 ML/MIN 11/29/2012 CHEM 14 3037444 AST 23 U/L 08/07/2012 CHEM 14 0350787 ALT 34 IU/L 08/07/2012 CHEM 14 4825479 BUN 26 MG/DL 08/07/2012 CHEM 14 7438373 ALBUMIN 4.4 GM/DL 08/07/2012 CHEM 14 5193592 CHLORIDE 105 MMOL/L 08/07/2012 CHEM 14 2378713 BILI TOT 0.5 MG/DL 08/07/2012 CHEM 14 0291338 ALK PHOS 79 U/L 08/07/2012 CHEM 14 5638807 SODIUM 140 MMOL/L 08/07/2012 CHEM 14 4821812 CREATININE 0.71 MG/DL 08/07/2012 CHEM 14 8521832 CALCIUM 10.4 MG/DL 08/07/2012 CHEM 14 2373500 POTASSIUM 3.8 MMOL/L 08/07/2012 CHEM 14 6946572 PROT TOT 6.8 GM/DL 08/07/2012 CHEM 14 4910123 GLUCOSE 104 MG/DL 08/07/2012 CHEM 14 7855479 BICARB 27 MMOL/L 08/07/2012 CHEM 14 9633408 ANION GAP 8 MEQ/L 08/07/2012 A1C HPLC 2647409 A1C HPLC 11345-0 5.4 % 08/07/2012 FREE T4 1379751 FREE T4 1.11 NG/DL 08/07/2012 LIPID GRP HDL TEST 50 MG/DL 08/07/2012 LIPID GRP TRIG 127 MG/DL 08/07/2012 LIPID GRP TEST LDL 93 MG/DL 08/07/2012 LIPID GRP CHOL 168 MG/DL 08/07/2012 LIPID GRP RCHOL/HDL 3.36 RATIO 08/07/2012 CBC 7155869 WBC 8.7 10e9/L 08/07/2012 CBC 7642136 RBC 4.67 10e12/L 08/07/2012 CBC 4841107 HGB 14.4 g/dL 08/07/2012 CBC 3869249 HCT DET 42.8 % 08/07/2012 CBC 4251765 MCV 91.6 fL 08/07/2012 CBC 4025560 MCH 30.8 pg 08/07/2012 CBC 9673067 MCHC 33.6 g/dL 08/07/2012 CBC 5419363 PLT 271 10e9/L 08/07/2012 CBC 7732635 MPV 12.3 fL 08/07/2012 CBC 3761381 LARA % 50.6 % 08/07/2012 CBC 6399944 LY % 34.9 % 08/07/2012 CBC 5188410 MON % 9.1 % 08/07/2012 CBC 9412905 EOS % 5.1 % 08/07/2012 CBC 8240907 BASO % 0.3 % 08/07/2012 CBC 1843024 RDW 13.6 % 08/07/2012 CBC 3406409 ABS LARA 4.40 10e9/L 08/07/2012 CBC 1105404 ABS LYMPH 3.04 10e9/L 08/07/2012 CBC 0596214 ABS MONO 0.79 10e9/L 08/07/2012 CBC 5027134 ABS EOS 0.44 10e9/L 08/07/2012 CBC 6218859 ABS BASO 0.03 10e9/L 08/07/2012 CBC 6633999 RDW-SD 44.1 fL 08/07/2012 TSH 5606852 TSH 7.419 uIU/ML 08/07/2012 GFR CALC 1589223 GFR AA >60 ML/MIN 08/07/2012 GFR CALC 0896196 GFR NON-AA >60 ML/MIN 08/07/2012 A1C HPLC 6035524 A1C HPLC 22389-6 5.3 % 02/21/2012 TSH 2508134 TSH 0.832 uIU/ML 02/16/2012 FREE T4 5846743 FREE T4 1.04 NG/DL 02/16/2012 GFR CALC 3343954 GFR AA >60 ML/MIN 02/16/2012 GFR CALC 2463580 GFR NON-AA >60 ML/MIN 02/16/2012 BMP GLUCOSE 112 MG/DL 02/16/2012 BMP CREATININE 0.65 MG/DL 02/16/2012 BMP BUN 17 MG/DL 02/16/2012 BMP SODIUM 144 MMOL/L 02/16/2012 BMP POTASSIUM 4.0 MMOL/L 02/16/2012 BMP CHLORIDE 107 MMOL/L 02/16/2012 BMP BICARB 29 MMOL/L 02/16/2012 BMP 3228201 ANION GAP 8 MEQ/L 02/16/2012 BMP 9187325 CALCIUM 9.5 MG/DL 02/16/2012 CBC 5362011 WBC 7.1 10e9/L 02/16/2012 CBC 8870157 RBC 4.47 10e12/L 02/16/2012 CBC 8208895 HGB 13.5 g/dL 02/16/2012 CBC 3552543 HCT DET 40.7 % 02/16/2012 CBC 4024677 MCV 91.1 fL 02/16/2012 CBC 7838400 MCH 30.2 pg 02/16/2012 CBC 5447306 MCHC 33.2 g/dL 02/16/2012 CBC 3124421 PLT 238 10e9/L 02/16/2012 CBC 5831718 MPV 11.4 fL 02/16/2012 CBC 3976327 LARA % 55.7 % 02/16/2012 CBC 5011910 LY % 29.6 % 02/16/2012 CBC 3280498 MON % 9.2 % 02/16/2012 CBC 5322853 EOS % 5.1 % 02/16/2012 CBC 4184146 BASO % 0.4 % 02/16/2012 CBC 8765071 RDW 13.0 % 02/16/2012 CBC 3590241 ABS LARA 3.95 10e9/L 02/16/2012 CBC 1487160 ABS LYMPH 2.10 10e9/L 02/16/2012 CBC 3965675 ABS MONO 0.65 10e9/L 02/16/2012 CBC 6151515 ABS EOS 0.36 10e9/L 02/16/2012 CBC 4622038 ABS BASO 0.03 10e9/L 02/16/2012 CBC 7304432 RDW-SD 42.4 fL 02/16/2012 URINALYSIS NONAUTO W/O SCOPE 79217 Specific [place] 1.015 DateTime(Free Text in Aprima) URINALYSIS NONAUTO W/O SCOPE 09225 PH 7 DateTime(Free Text in Aprima) URINALYSIS NONAUTO W/O SCOPE 74159 GLUCOSE neg DateTime(Free Text in Apr[employer]) URINALYSIS NONAUTO W/O SCOPE 24327 Protein 1+ DateTime(Free Text in Aprima) URINALYSIS NONAUTO W/O SCOPE 28026 Blood neg DateTime(Free Text in Aprima) URINALYSIS NONAUTO W/O SCOPE 78030 Bilirubin neg DateTime(Free Text in Aprima) URINALYSIS NONAUTO W/O SCOPE 34057 Ketones neg DateTime(Free Text in Aprima) URINALYSIS NONAUTO W/O SCOPE 32329 Urobilinogen neg DateTime(Free Text in Aprima) URINALYSIS NONAUTO W/O SCOPE 94926 Nitrite postive DateTime(Free Text in Aprima) URINALYSIS NONAUTO W/O SCOPE 58273 Leukocytes 3+ DateTime(Free Text in Aprima) URINALYSIS NONAUTO W/O SCOPE 32609 Specific [place] 1.030 DateTime(Free Text in Aprima) URINALYSIS NONAUTO W/O SCOPE 40405 PH 6 DateTime(Free Text in Aprima) URINALYSIS NONAUTO W/O SCOPE 14666 GLUCOSE neg DateTime(Free Text in Aprima) URINALYSIS NONAUTO W/O SCOPE 61890 Protein neg DateTime(Free Text in Aprima) URINALYSIS NONAUTO W/O SCOPE 95745 Blood neg DateTime(Free Text in Aprima) URINALYSIS NONAUTO W/O SCOPE 82162 Bilirubin neg DateTime(Free Text in Aprima) URINALYSIS NONAUTO W/O SCOPE 96888 Ketones neg DateTime(Free Text in Aprima) URINALYSIS NONAUTO W/O SCOPE 14184 Urobilinogen neg DateTime(Free Text in Aprima) URINALYSIS NONAUTO W/O SCOPE 31696 Nitrite neg DateTime(Free Text in Aprima) URINALYSIS NONAUTO W/O SCOPE 25511 Leukocytes trace DateTime(Free Text in Aprima) URINALYSIS NONAUTO W/O SCOPE 49466 Specific [place] 1.005 DateTime(Free Text in Aprima) URINALYSIS NONAUTO W/O SCOPE 12547 PH 5 DateTime(Free Text in Aprima) URINALYSIS NONAUTO W/O SCOPE 15003 GLUCOSE neg DateTime(Free Text in Aprima) URINALYSIS NONAUTO W/O SCOPE 11848 Protein neg DateTime(Free Text in Aprima) URINALYSIS NONAUTO W/O SCOPE 01739 Blood neg DateTime(Free Text in Aprima) URINALYSIS NONAUTO W/O SCOPE 19829 Bilirubin neg DateTime(Free Text in Aprima) URINALYSIS NONAUTO W/O SCOPE 58734 Ketones neg DateTime(Free Text in Aprima) URINALYSIS NONAUTO W/O SCOPE 02136 Urobilinogen neg DateTime(Free Text in Aprima) URINALYSIS NONAUTO W/O SCOPE 46715 Nitrite neg DateTime(Free Text in Aprima) URINALYSIS NONAUTO W/O SCOPE 50267 Leukocytes neg DateTime(Free Text in Aprima) UA 51122 Specific [place] 1.030 DateTime(Free Text in Novima) UA 15004 PH 5 DateTime(Free Text in Aprima) UA 84300 GLUCOSE neg DateTime(Free Text in Aprima) UA 09734 Protein trace DateTime(Free Text in Aprima) UA 56642 Blood large DateTime(Free Text in Aprima) UA 75716 Bilirubin neg DateTime(Free Text in Aprima) UA 22365 Ketones neg DateTime(Free Text in Aprima) UA 23909 Urobilinogen neg DateTime(Free Text in Aprima) UA 52510 Nitrite neg DateTime(Free Text in Aprima) UA 86056 Leukocytes large DateTime(Free Text in ) Review [...] Procedure Codes Date THER/PROPH/DIAG INJ SC/IM CPT-4: 04412 02/20/2019 ROCEPHIN, PER 250 MG CPT- 4: J0696 02/20/2019 URINALYSIS NONAUTO W/O SCOPE CPT-4: 74840 07/10/2018 TRIAMCINOLONE ACET INJ NOS CPT-4: J3301 05/28/2018 ROCEPHIN, PER 250 MG CPT- 4: J0696 05/28/2018 ROCEPHIN, PER 250 MG CPT- 4: J0696 01/19/2018 TRIAMCINOLONE ACET INJ NOS CPT-4: J3301 01/19/2018 PPPS, SUBSEQ VISIT CPT- 4: G0439 11/23/2017 TRIAMCINOLONE ACET INJ NOS CPT-4: J3301 06/27/2017 THER/PROPH/DIAG INJ SC/IM CPT-4: 03686 04/20/2017 TRIAMCINOLONE ACET INJ NOS CPT-4: J3301 04/20/2017 TRIAMCINOLONE ACET INJ NOS CPT-4: J3301 03/14/2017 ROCEPHIN, PER 250 MG CPT- 4: J0696 03/14/2017 DESTRUCT PREMALG LESION CPT-4: 05938 12/05/2016 DESTRUCT PREMALG LES 2-14 CPT-4: 31249 12/05/2016 URINALYSIS NONAUTO W/O SCOPE CPT-4: 10507 11/28/2016 ROCEPHIN, PER 250 MG CPT- 4: J0696 11/28/2016 PPPS, SUBSEQ VISIT CPT- 4: G0439 11/07/2016 THER/PROPH/DIAG INJ SC/IM CPT-4: 13724 11/07/2016 TRIAMCINOLONE ACET INJ NOS CPT-4: J3301 11/07/2016 ROCEPHIN, PER 250 MG CPT- 4: J0696 11/07/2016 THER/PROPH/DIAG INJ SC/IM CPT-4: 81623 08/15/2016 TRIAMCINOLONE ACET INJ NOS CPT-4: J3301 08/15/2016 ROCEPHIN, PER 250 MG CPT- 4: J0696 08/15/2016 URINALYSIS NONAUTO W/O SCOPE CPT-4: 95594 05/05/2016 ROCEPHIN, PER 250 MG CPT- 4: J0696 12/07/2015 TRIAMCINOLONE ACET INJ NOS CPT-4: J3301 11/24/2015 ROCEPHIN, PER 250 MG CPT- 4: J0696 11/24/2015 THER/PROPH/DIAG INJ SC/IM CPT-4: 03518 11/24/2015 THER/PROPH/DIAG INJ SC/IM CPT-4: 84279 08/27/2015 KETOROLAC TROMETHAMINE INJ CPT-4: J1885 08/27/2015 PROMETHAZINE HCL INJECTION CPT-4: J2550 08/27/2015 THER/PROPH/DIAG INJ SC/IM CPT-4: 23441 08/10/2015 TRIAMCINOLONE ACET INJ NOS CPT-4: J3301 08/10/2015 ROCEPHIN, PER 250 MG CPT- 4: J0696 08/10/2015 C WOUN RTS (CULTURE OTHR SPECIMN AEROBIC) CPT-4: 85780 07/28/2015 THER/PROPH/DIAG INJ SC/IM CPT-4: 91471 03/19/2015 TRIAMCINOLONE ACET INJ NOS CPT-4: J3301 03/19/2015 ROCEPHIN, PER 250 MG CPT- 4: J0696 06/23/2014 TRIAMCINOLONE ACET INJ NOS CPT-4: J3301 06/23/2014 INJ TRIGGER POINT 1/2 MUSCL CPT-4: 78619 06/05/2014 URINALYSIS NONAUTO W/O SCOPE CPT-4: 10637 02/11/2014 URINALYSIS NONAUTO W/O SCOPE CPT-4: 18642 10/15/2013 ROCEPHIN, PER 250 MG CPT- 4: J0696 09/24/2013 THER/PROPH/DIAG INJ SC/IM CPT-4: 03178 09/19/2013 ROCEPHIN, PER 250 MG CPT- 4: J0696 09/19/2013 PRESCRIP TRANSMIT VIA ERX SY CPT-4: G8553 08/05/2013 ROCEPHIN, PER 250 MG CPT- 4: J0696 07/10/2013 THER/PROPH/DIAG INJ SC/IM CPT-4: 45776 07/10/2013 TRIAMCINOLONE ACET INJ NOS CPT-4: J3301 07/10/2013 PRESCRIP TRANSMIT VIA ERX SY CPT-4: G8553 07/10/2013 [id number] EST. PATIENT, LEVEL III CPT-4: 33339 06/03/2013 PRESCRIP TRANSMIT VIA ERX SY CPT-4: G8553 06/03/2013 PRESCRIP TRANSMIT VIA ERX SY CPT-4: G8553 05/07/2013 ROUTINE VENIPUNCTURE CPT- 4: 38011 04/30/2013 ROUTINE VENIPUNCTURE CPT- 4: 63640 11/29/2012 TRIAMCINOLONE ACET INJ NOS CPT-4: J3301 09/24/2012 THER/PROPH/DIAG INJ SC/IM CPT-4: 85807 09/24/2012 URINALYSIS NONAUTO W/O SCOPE CPT-4: 79087 09/24/2012 PRESCRIP TRANSMIT VIA ERX SY CPT-4: G8553 09/24/2012 PRESCRIP TRANSMIT VIA ERX SY CPT-4: G8553 09/10/2012 PRESCRIP TRANSMIT VIA ERX SY CPT-4: G8553 08/08/2012 ROUTINE VENIPUNCTURE CPT- 4: 51385 08/07/2012 ROUTINE VENIPUNCTURE CPT- 4: 88937 02/16/2012 URINALYSIS NONAUTO W/O SCOPE CPT-4: 28332 02/15/2012 ROCEPHIN, PER 250 MG CPT- 4: J0696 02/15/2012 PRESCRIP TRANSMIT VIA ERX SY CPT-4: G8553 02/15/2012 ROUTINE VENIPUNCTURE CPT- 4: 10117 11/08/2011 ROCEPHIN, PER 250 MG CPT- 4: J0696 07/14/2011 THER/PROPH/DIAG INJ SC/IM CPT-4: 58742 07/14/2011 Influenza Virus Vaccine, Split Virus, >3 Yrs, IM CPT-4: 95654 05/23/2011 IMMUNIZATION ADMIN CPT- 4: 59772 05/23/2011 THER/PROPH/DIAG INJ SC/IM CPT-4: 86088 05/03/2011 ROCEPHIN, PER 250 MG CPT- 4: J0696 05/03/2011 TRIAMCINOLONE ACET INJ NOS CPT-4: J3301 05/03/2011 Vital Signs Date Vital 02/25/2019 BMI: 31.9 Code: 56129-4 Height: 4'11" Weight: 158 lbs 02/20/2019 Blood Pressure 1: 124/76 Code: 8480-6 BMI: 31.9 Code: 81239-9 Heart Rate 1: 67 bpm Height: 4'11" SpO2: 97% Weight: 158 lbs 01/29/2019 Blood Pressure 1: 138/88 Code: 8480-6 BMI: 31.9 Code: 42933-8 Heart Rate 1: 74 bpm Height: 4'11" SpO2: 94% Weight: 158 lbs 11/27/2018 Blood Pressure 1: 144/82 Code: 8480-6 Heart Rate 1: 67 bpm SpO2: 93% 11/16/2018 Blood Pressure 1: 168/100 Code: 8480-6 Heart Rate 1: 74 bpm SpO2: 96% 11/13/2018 Blood Pressure 1: 184/98 Code: 8480-6 BMI: 32.1 Code: 36073-7 Heart Rate 1: 68 bpm Height: 4'11" SpO2: 96% Weight: 159 lbs 10/30/2018 Blood Pressure 1: 158/98 Code: 8480-6 BMI: 31.7 Code: 74618-3 Heart Rate 1: 80 bpm Height: 4'11" SpO2: 96% Weight: 157 lbs 10/08/2018 Blood Pressure 1: 140/80 Code: 8480-6 BMI: 32.1 Code: 21497-6 Heart Rate 1: 92 bpm Height: 4'11" SpO2: 103% Weight: 159 lbs 07/16/2018 Blood Pressure 1: 142/80 Code: 8480-6 BMI: 31.1 Code: 13640-6 Heart Rate 1: 78 bpm Height: 4'11" SpO2: 98% Weight: 154 lbs 07/10/2018 Blood Pressure 1: 156/82 Code: 8480-6 BMI: 31.1 Code: 58323-5 Heart Rate 1: 63 bpm Height: 4'11" SpO2: 99% Weight: 154 lbs 05/28/2018 Blood Pressure 1: 142/80 Code: 8480-6 Heart Rate 1: 82 bpm Height: SpO2: 97% Temperature: 35.9 (C) / 96.6 (F) Weight: 02/07/2018 Height: Weight: 01/19/2018 Blood Pressure 1: 128/76 Code: 8480-6 BMI: 31.2 Code: 67864-1 Heart Rate 1: 71 bpm Height: 4'11" SpO2: 96% Temperature: 36.5 (C) / 97.7 (F) Weight: 154 lbs 8 oz 11/23/2017 Blood Pressure 1: 146/80 Code: 8480-6 BMI: 31.7 Code: 98629-1 Heart Rate 1: 64 bpm Height: 4'11" SpO2: 97% Waist Measure (cm): 89 cm Weight: 157 lbs 09/12/2017 Blood Pressure 1: 140/86 Code: 8480-6 Heart Rate 1: 62 bpm SpO2: 96% Temperature: 36.6 (C) / 97.8 (F) Weight: 153 lbs 07/25/2017 Blood Pressure 1: 140/72 Code: 8480-6 BMI: 31.3 Code: 65940-0 Heart Rate 1: 76 bpm Height: 4'11" SpO2: 97% Temperature: 37.2 (C) / 99.0 (F) Weight: 155 lbs 06/27/2017 Blood Pressure 1: 144/84 Code: 8480-6 BMI: 31.1 Code: 82186-3 Heart Rate 1: 63 bpm Height: 4'11" SpO2: 99% Temperature: 36.4 (C) / 97.6 (F) Weight: 154 lbs 05/08/2017 Blood Pressure 1: 142/86 Code: 8480-6 BMI: 30.9 Code: 30172-1 Height: 4'11" Temperature: 36.3 (C) / 97.4 (F) Weight: 153 lbs 03/14/2017 Blood Pressure 1: 146/82 Code: 8480-6 BMI: 30.9 Code: 91306-0 Heart Rate 1: 64 bpm Height: 4'11" SpO2: 94% Weight: 153 lbs 02/20/2017 Blood Pressure 1: 142/80 Code: 8480-6 BMI: 30.9 Code: 00373-5 Heart Rate 1: 75 bpm Height: 4'11" SpO2: 97% Weight: 153 lbs 02/06/2017 Blood Pressure 1: 138/90 Code: 8480-6 BMI: 31.5 Code: 40699-2 Heart Rate 1: 61 bpm Height: 4'11" SpO2: 98% Weight: 156 lbs 12/05/2016 Blood Pressure 1: 122/72 Code: 8480-6 Heart Rate 1: 59 bpm Height: 4'11" SpO2: 98% Weight: 11/28/2016 Blood Pressure 1: 154/86 Code: 8480-6 BMI: 31.3 Code: 75737-3 Heart Rate 1: 64 bpm Height: 4'11" SpO2: 94% Temperature: 36.2 (C) / 97.2 (F) Weight: 155 lbs 11/07/2016 Blood Pressure 1: 128/64 Code: 8480-6 BMI: 31.5 Code: 64898-4 Heart Rate 1: 59 bpm Height: 4'11" SpO2: 97% Weight: 156 lbs 08/15/2016 Blood Pressure 1: 110/62 Code: 8480-6 BMI: 31.5 Code: 19809-0 Heart Rate 1: 76 bpm Height: 4'11" SpO2: 97% Weight: 156 lbs 06/07/2016 Blood Pressure 1: 120/80 Code: 8480-6 BMI: 32.9 Code: 33818-4 Heart Rate 1: 63 bpm Height: 4'11" SpO2: 93% Temperature: 36.5 (C) / 97.7 (F) Weight: 163 lbs 03/15/2016 Blood Pressure 1: 90/42 Code: 8480-6 Heart Rate 1: 65 bpm SpO2: 94% 03/14/2016 Blood Pressure 1: 188/110 Code: 8480-6 Heart Rate 1: 68 bpm SpO2: 96% 02/22/2016 Blood Pressure 1: 158/80 Code: 8480-6 BMI: 32.7 Code: 34119-3 Heart Rate 1: 71 bpm Height: 4'11" SpO2: 95% Weight: 162 lbs 12/07/2015 Blood Pressure 1: 140/88 Code: 8480-6 BMI: 32.9 Code: 44256-1 Heart Rate 1: 99 bpm Height: 4'11" SpO2: 94% Temperature: 35.9 (C) / 96.6 (F) Weight: 163 lbs 11/24/2015 Blood Pressure 1: 144/78 Code: 8480-6 BMI: 33.7 Code: 95745-2 Heart Rate 1: 60 bpm Height: 4'11" SpO2: 98% Temperature: 36.6 (C) / 97.9 (F) Weight: 167 lbs 08/27/2015 Blood Pressure 1: 164/82 Code: 8480-6 BMI: 32.3 Code: 38436-7 Heart Rate 1: 60 bpm Height: 4'11" SpO2: 93% Weight: 160 lbs 08/10/2015 Blood Pressure 1: 130/60 Code: 8480-6 BMI: 32.5 Code: 69700-0 Heart Rate 1: 64 bpm Height: 4'11" SpO2: 97% Weight: 161 lbs 07/28/2015 Blood Pressure 1: 124/68 Code: 8480-6 BMI: 32.5 Code: 22738-5 Heart Rate 1: 69 bpm Height: 4'11" SpO2: 97% Weight: 161 lbs 06/11/2015 Blood Pressure 1: 148/80 Code: 8480-6 BMI: 32.9 Code: 81144-1 Heart Rate 1: 70 bpm Height: 4'11" SpO2: 94% Weight: 163 lbs 03/19/2015 Blood Pressure 1: 150/102 Code: 8480-6 Blood Pressure 2: 152/92 Code: 8480-6 BMI: 32.5 Code: 85120-5 Heart Rate 1: 71 bpm Height: 4'11" SpO2: 96% Weight: 161 lbs 01/07/2015 Blood Pressure 1: 126/84 Code: 8480-6 Heart Rate 1: 80 bpm Height: 4'11" 09/23/2014 Blood Pressure 1: 112/72 Code: 8480-6 BMI: 33.9 Code: 11353-9 Heart Rate 1: 72 bpm Height: 4'11" Weight: 168 lbs 08/05/2014 Blood Pressure 1: 140/86 Code: 8480-6 BMI: 33.3 Code: 14862-8 Height: 4'11" Weight: 165 lbs 06/23/2014 Blood Pressure 1: 132/70 Code: 8480-6 BMI: 32.9 Code: 00337-4 Heart Rate 1: 58 bpm Height: 4'11" Temperature: 36.0 (C) / 96.8 (F) Weight: 163 lbs 06/05/2014 Blood Pressure 1: 121/85 Code: 8480-6 BMI: 34.3 Code: 32569-4 Height: 4'11" Weight: 170 lbs 04/03/2014 Blood Pressure 1: 128/80 Code: 8480-6 Heart Rate 1: 88 bpm Weight: 167 lbs 03/07/2014 Blood Pressure 1: 122/82 Code: 8480-6 BMI: 33.9 Code: 31751-2 Heart Rate 1: 68 bpm Height: 4'11" Weight: 168 lbs 11/21/2013 Blood Pressure 1: 100/58 Code: 8480-6 BMI: 33.7 Code: 53058-2 Heart Rate 1: 64 bpm Height: 4'11" Weight: 167 lbs 09/24/2013 Blood Pressure 1: 148/88 Code: 8480-6 Heart Rate 1: 68 bpm Weight: 09/19/2013 Blood Pressure 1: 120/80 Code: 8480-6 BMI: 33.9 Code: 62799-4 Heart Rate 1: 80 bpm Height: 4'11" Temperature: 36.9 (C) / 98.5 (F) Weight: 168 lbs 08/05/2013 Blood Pressure 1: 128/80 Code: 8480-6 BMI: 34.3 Code: 05025-9 Heart Rate 1: 64 bpm Height: 4'11" Temperature: 36.2 (C) / 97.2 (F) Weight: 170 lbs 07/10/2013 Blood Pressure 1: 120/84 Code: 8480-6 BMI: 36.0 Code: 22272-8 Heart Rate 1: 90 bpm Height: 4'11" SpO2: 97% Temperature: 36.8 (C) / 98.2 (F) Weight: 178 lbs 06/03/2013 Blood Pressure 1: 136/94 Code: 8480-6 BMI: 34.7 Code: 52626-9 Heart Rate 1: 68 bpm Height: 4'11" Temperature: 36.7 (C) / 98.0 (F) Weight: 172 lbs 05/13/2013 Blood Pressure 1: 132/90 Code: 8480-6 Heart Rate 1: 68 bpm 05/07/2013 Blood Pressure 1: 168/100 Code: 8480-6 BMI: 34.3 Code: 28620-3 Heart Rate 1: 76 bpm Height: 4'11" Weight: 170 lbs 12/03/2012 Blood Pressure 1: 142/78 Code: 8480-6 BMI: 33.5 Code: 18574-8 Heart Rate 1: 76 bpm Height: 4'11" Weight: 166 lbs 09/24/2012 Blood Pressure 1: 116/70 Code: 8480-6 Heart Rate 1: 68 bpm Respiratory Rate: 16 bpm Temperature: 36.9 (C) / 98.4 (F) Weight: 162 lbs 09/10/2012 Blood Pressure 1: 116/80 Code: 8480-6 BMI: 33.7 Code: 41521-2 Heart Rate 1: 76 bpm Height: 4'11" [...] 1: 149/85 Code: 8480-6 BMI: 32.9 Code: 94912-6 Heart Rate 1: 79 bpm Height: 4'11" Weight: 164 lbs 05/03/2011 Blood Pressure 1: 122/79 Code: 8480-6 BMI: 30.8 Code: 95536-2 Heart Rate 1: 72 bpm Height: 5'1" Weight: 163 lbs 04/25/2011 Blood Pressure 1: 137/84 Code: 8480-6 BMI: 31.0 Code: 10350-4 Heart Rate 1: 63 bpm Height: 5'1" [...] days ago 02/15/2012 while visiting mother in [place] had uti and was put on pyridum [...] surg in december. then took trip to [facility] to see mother and has had [...] Quality chronic 08/01/2011 states went shopping on [place] over night without taking any of medications [...] left upper limb[ICD10: L03.114] Shahida Goldman MD, [facility] CPT-4: 43693 02/25/2019 [id number] EST. PATIENT, LEVEL III Diagnosis: Cellulitis of left upper limb[ICD10: L03.114] Isabelle Goldman MD, [facility] CPT-4: 94495 02/20/2019 ([id number]) 84029 EST. PATIENT, LEVEL III Diagnosis: Functional diarrhea[ICD10: K59.1] Melba Goldman MD, [facility] CPT- 4: 65740 01/29/2019 ([id number]) Miscellaneous no charge Diagnosis: Essential (primary) hypertension[ICD10: I10] Melba Goldman MD, [facility] CPT-4: 55675 11/16/2018 ([id number]) 03671 EST. PATIENT, LEVEL III Diagnosis: Essential (primary) hypertension[ICD10: I10] Shahida Goldman MD, [facility] CPT-4: 33217 11/13/2018 ([id number]) 50129 EST. PATIENT, LEVEL IV Diagnosis: Essential (primary) hypertension[ICD10: I10] Diagnosis: Mixed hyperlipidemia[ICD10: E78.2] Diagnosis: Hypothyroidism, unspecified[ICD10: E03.9] Shahida Goldman MD, [facility] CPT-4: 48363 10/30/2018 54689 EST. PATIENT, LEVEL III Diagnosis: Other mucopurulent conjunctivitis, bilateral[ICD10: H10.023] Diagnosis: Other allergic rhinitis[ICD10: J30.89] Shahida Goldman MD, [facility] CPT-4: 56271 10/08/2018 40787 EST. PATIENT, LEVEL III Diagnosis: Essential (primary) hypertension[ICD10: I10] Diagnosis: Generalized anxiety disorder[ICD10: F41.1] Isabelle Goldman MD, [facility] CPT-4: 92373 07/16/2018 ([id number]) 04943 EST. PATIENT, LEVEL III Diagnosis: Acute recurrent maxillary sinusitis[ICD10: J01.01] Diagnosis: Frequency of micturition[ICD10: R35.0] Diagnosis: Low back pain[ICD10: M54.5] Shahida Goldman MD, [facility] CPT-4: 07517 07/10/2018 ([id number]) 55532 EST. PATIENT, LEVEL III Diagnosis: Acute recurrent maxillary sinusitis[ICD10: J01.01] Shahida Goldman MD, [facility] CPT-4: 24832 05/28/2018 ([id number]) Miscellaneous no charge Diagnosis: Laceration without foreign body, left lower leg, subsequent encounter[ICD10: S81.812D] Diagnosis: Laceration without foreign body, right lower leg, subsequent encounter[ICD10: S81.811D] Isabelle Goldman MD, [facility] CPT-4: 55695 02/08/2018 86337 EST. PATIENT, LEVEL III Diagnosis: Cellulitis of left lower limb[ICD10: L03.116] Diagnosis: Cellulitis of right lower limb[ICD10: L03.115] Diagnosis: Laceration without foreign body, left lower leg, initial encounter[ICD10: S81.812A] Diagnosis: Laceration without foreign body, right lower leg, initial encounter[ICD10: S81.811A] Isabelle Goldman MD, [facility] CPT-4: 60925 02/07/2018 ([id number]) 91519 EST. PATIENT, LEVEL IV Diagnosis: Primary generalized (osteo)arthritis[ICD10: M15.0] Diagnosis: Acute recurrent maxillary sinusitis[ICD10: J01.01] Diagnosis: Low back pain[ICD10: M54.5] Diagnosis: Other allergic rhinitis[ICD10: J30.89] Diagnosis: Obstructive sleep apnea (adult) (pediatric)[ICD10: G47.33] Shahida Goldman MD, [facility] CPT-4: 10362 01/19/2018 84479 EST. PATIENT, LEVEL IV Diagnosis: Diarrhea, unspecified[ICD10: R19.7] Diagnosis: Generalized abdominal pain[ICD10: R10.84] Diagnosis: Other allergic rhinitis[ICD10: J30.89] Diagnosis: Other acute sinusitis[ICD10: J01.80] Isabelle Goldman MD, [facility] CPT- 4: 73548 09/12/2017 17515 EST. PATIENT, LEVEL III Diagnosis: Acute laryngopharyngitis[ICD10: J06.0] Diagnosis: Other allergic rhinitis[ICD10: J30.89] Diagnosis: Cough[ICD10: R05] Diagnosis: Wheezing[ICD10: R06.2] Isabelle Goldman MD, [facility] CPT-4: 42427 07/25/2017 ([id number]) 60046 EST. PATIENT, LEVEL IV Diagnosis: Acute recurrent maxillary sinusitis[ICD10: J01.01] Diagnosis: Cervicalgia[ICD10: M54.2] Diagnosis: Diarrhea, unspecified[ICD10: R19.7] Shahida Goldman MD, [facility] CPT-4: 56727 06/27/2017 ([id number]) 99021 EST. PATIENT, LEVEL III Diagnosis: Chronic maxillary sinusitis[ICD10: J32.0] Diagnosis: Gastro-esophageal reflux disease without esophagitis[ICD10: K21.9] Shahida Goldman MD, [facility] CPT-4: 98304 05/08/2017 ([id number]) 24536 EST. PATIENT, LEVEL III Diagnosis: Acute recurrent maxillary sinusitis[ICD10: J01.01] Shahida Goldman MD, [facility] CPT-4: 79074 03/14/2017 03320 EST. PATIENT, LEVEL IV Diagnosis: Epigastric pain[ICD10: R10.13] Diagnosis: Left upper quadrant pain[ICD10: R10.12] Diagnosis: Left lower quadrant pain[ICD10: R10.32] Isabelle Goldman MD, [facility] CPT-4: 14966 02/20/2017 ([id number]) 50074 EST. PATIENT, LEVEL IV Diagnosis: Generalized anxiety disorder[ICD10: F41.1] Diagnosis: Major depressive disorder, recurrent, moderate[ICD10: F33.1] Diagnosis: Left upper quadrant pain[ICD10: R10.12] Diagnosis: Epigastric pain[ICD10: R10.13] Diagnosis: Actinic keratosis[ICD10: L57.0] Melba Goldman MD, [facility] CPT-4: 53701 02/06/2017 ([id number]) 83402 EST. PATIENT, LEVEL III Diagnosis: Actinic keratosis[ICD10: L57.0] Diagnosis: Major depressive disorder, recurrent, moderate[ICD10: F33.1] Melba Goldman MD, [facility] CPT-4: 06822 12/05/2016 ([id number]) 78530 EST. PATIENT, LEVEL III Diagnosis: Acute recurrent maxillary sinusitis[ICD10: J01.01] Diagnosis: Dysuria[ICD10: R30.0] Shahida Goldman MD, [facility] CPT-4: 15370 11/28/2016 00414 EST. PATIENT, LEVEL IV Diagnosis: Other acute sinusitis[ICD10: J01.80] Diagnosis: Acute laryngopharyngitis[ICD10: J06.0] Diagnosis: Other allergic rhinitis[ICD10: J30.89] Isabelle Goldman MD, [facility] CPT- 4: 66800 08/15/2016 ([id number]) 73202 EST. PATIENT, LEVEL III Diagnosis: Acute recurrent maxillary sinusitis[ICD10: J01.01] Diagnosis: Low back pain[ICD10: M54.5] Shahida Goldman MD, [facility] CPT-4: 62899 06/07/2016 ([id number]) Miscellaneous no charge Diagnosis: Essential (primary) hypertension[ICD10: I10] Shahida Goldman MD, [facility] CPT-4: 91048 03/15/2016 42072 EST. PATIENT, LEVEL IV Diagnosis: Essential (primary) hypertension[ICD10: I10] Diagnosis: Headache[ICD10: R51] Diagnosis: Generalized anxiety disorder[ICD10: F41.1] Shahida Goldman MD, [facility] CPT-4: 57883 03/14/2016 09489 EST. PATIENT, LEVEL III Diagnosis: Laceration without foreign body, left lower leg, initial encounter[ICD10: S81.812A] Isabelle Goldman MD, [facility] CPT-4: 39886 02/22/2016 ([id number]) 93229 EST. PATIENT, LEVEL III Diagnosis: Acute recurrent maxillary sinusitis[ICD10: J01.01] Diagnosis: Cough[ICD10: R05] Diagnosis: Allergic rhinitis due to pollen[ICD10: J30.1] Shahida Goldman MD, [facility] CPT-4: 55228 12/07/2015 ([id number]) 63956 EST. PATIENT, LEVEL IV Diagnosis: Essential (primary) hypertension[ICD10: I10] Diagnosis: Acute recurrent maxillary sinusitis[ICD10: J01.01] Diagnosis: Generalized anxiety disorder[ICD10: F41.1] Diagnosis: Cervicalgia[ICD10: M54.2] Diagnosis: Generalized intra-abdominal and pelvic swelling, mass and lump[ICD10: R19.07] Melba Goldman MD, [facility] CPT-4: 27536 11/24/2015 53260 EST. PATIENT, LEVEL III Diagnosis: Other migraine, intractable, without status migrainosus[ICD10: G43.819] Isabelle Goldman MD, [facility] CPT-4: 70083 08/27/2015 54913 EST. PATIENT, LEVEL III Diagnosis: Acute recurrent maxillary sinusitis[ICD10: J01.01] Diagnosis: Candidal stomatitis[ICD10: B37.0] Diagnosis: Acute laryngopharyngitis[ICD10: J06.0] Isabelle Goldman MD, [facility] CPT- 4: 40683 08/10/2015 58418 EST. PATIENT, LEVEL III Diagnosis: Superficial foreign body of left hand, initial encounter[ICD10: S60.552A] Melba Goldman MD, [facility] CPT-4: 72143 07/28/2015 ([id number]) 87398 EST. PATIENT, LEVEL III Diagnosis: Essential (primary) hypertension[ICD10: I10] Diagnosis: Tinea cruris[ICD10: B35.6] Diagnosis: Abnormal levels of other serum enzymes[ICD10: R74.8] Shahida Goldman MD, [facility] CPT-4: 08635 06/11/2015 ([id number]) 25284 EST. PATIENT, LEVEL IV Diagnosis: ESSENTIAL HYPERTENSION[ICD9: 401.9] Diagnosis: Hypothyroid[ICD9: 244.9] Diagnosis: ALLERGIC RHINITIS[ICD9: 477.9] Diagnosis: Anxiety[ICD9: 300.00] Diagnosis: Sleep apnea[ICD9: 780.57] Shahida Goldman MD, [facility] CPT-4: 46506 03/19/2015 ([id number]) 53104 EST. PATIENT, LEVEL III Diagnosis: ACUTE SINUSITIS[ICD9: 461.9] Celi Goldman MD, [facility] CPT-4: 51601 01/07/2015 ([id number]) 67568 EST. PATIENT, LEVEL III Diagnosis: Conjunctivitis[ICD9: 372.30] Shahida Goldman MD, [facility] CPT-4: 64846 09/23/2014 27036 EST. PATIENT, LEVEL II Diagnosis: Noninfected skin tear of leg[ICD9: 891.0] Shahida Goldman MD, [facility] CPT-4: 48702 08/05/2014 ([id number]) 29283 EST. PATIENT, LEVEL III Diagnosis: Chronic maxillary sinusitis[ICD9: 473.0] Shahida Goldman MD, [facility] CPT-4: 12739 06/23/2014 34082 EST. PATIENT, LEVEL II Diagnosis: Headache[ICD9: 784.0] Shahida Goldman MD, [facility] CPT-4: 68503 06/05/2014 ([id number]) 96926 EST. PATIENT, LEVEL III Diagnosis: Abrasion of right leg[ICD9: 916.0] Diagnosis: Headache[ICD9: 784.0] Diagnosis: ALLERGIC RHINITIS[ICD9: 477.9] Shahida Goldman MD, [facility] CPT-4: 34426 04/03/2014 50143 EST. PATIENT, LEVEL II Diagnosis: Tinea corporis[ICD9: 110.5] Diagnosis: Exposure to scabies[ICD9: V01.89] Shahida Goldman MD, [facility] CPT- 4: 05818 03/07/2014 ([id number]) 53334 EST. PATIENT, LEVEL III Diagnosis: ESSENTIAL HYPERTENSION[SNOMED: 34348670] Diagnosis: OSTEOARTH NOS-UNSPEC[ICD9: 715.90] Diagnosis: Lumbago[ICD9: 724.2] Diagnosis: Cervicalgia[ICD9: 723.1] Shahida Goldman MD, [facility] CPT-4: 36597 11/21/2013 ([id number]) 51633 EST. PATIENT, LEVEL III Diagnosis: DEPRESSIVE DISORDER NEC[ICD9: 311] Diagnosis: Paronychia[ICD9: 681.9] Melba Goldman MD, [facility] CPT-4: 38519 09/24/2013 ([id number]) 98112 EST. PATIENT, LEVEL III Diagnosis: Paronychia[ICD9: 681.9] Diagnosis: Cellulitis[ICD9: 682.9] Melba Goldman MD, [facility] CPT-4: 74040 09/19/2013 ([id number]) 76849 EST. PATIENT, LEVEL III Diagnosis: Conjunctivitis[ICD9: 372.30] Diagnosis: Thrush[ICD9: 112.0] Shahida Goldman MD, [facility] CPT-4: 71499 08/05/2013 ([id number]) 27304 EST. PATIENT, LEVEL III Diagnosis: ACUTE MAXILLARY SINUSITIS[ICD9: 461.0] Diagnosis: COUGH[ICD9: 786.2] Diagnosis: Insomnia[ICD9: 780.52] Diagnosis: ESOPHAGEAL REFLUX[ICD9: 530.81] Melba Goldman MD, [facility] CPT-4: 48970 07/10/2013 ([id number]) Miscellaneous no charge Diagnosis: ESSENTIAL HYPERTENSION[SNOMED: 99214586] Melba Goldman MD, [facility] CPT-4: 10113 05/13/2013 ([id number]) 89141 EST. PATIENT, LEVEL IV Diagnosis: ESSENTIAL HYPERTENSION[SNOMED: 24396168] Diagnosis: HYPOTHYROIDISM[ICD9: 244.9] Diagnosis: OSTEOARTH NOS-UNSPEC[ICD9: 715.90] Melba Goldman MD, [facility] CPT- 4: 77285 05/07/2013 ([id number]) 77161 EST. PATIENT, LEVEL IV Diagnosis: Osteoarthritis[ICD9: 715.90] Diagnosis: Knee pain, bilateral[ICD9: 719.46] Diagnosis: Hip pain[ICD9: 719.45] Melba Goldman MD, [facility] CPT-4: 89217 12/03/2012 ([id number]) 54034 EST. PATIENT, LEVEL III Diagnosis: Thrush[ICD9: 112.0] Melba Goldman MD [facility] CPT-4: 59691 09/24/2012 ([id number]) 77444 EST. PATIENT, LEVEL IV Diagnosis: ESSENTIAL HYPERTENSION[SNOMED: 34277395] Diagnosis: Thrush[ICD9: 112.0] Diagnosis: Sleep apnea[ICD9: 780.57] Melba Goldman MD, [facility] CPT-4: 67697 09/10/2012 ([id number]) 94864 EST. PATIENT, LEVEL IV Diagnosis: Esophageal reflux[ICD9: 530.81] Diagnosis: Hypothyroid[ICD9: 244.9] Diagnosis: JOINT PAIN-MULT JOINTS[ICD9: 719.49] Diagnosis: ALLERGIC RHINITIS[ICD9: 477.9] Melba Goldman MD, [facility] CPT-4: 44866 08/08/2012 ([id number]) 18204 EST. PATIENT, LEVEL IV Diagnosis: Urinary frequency[ICD9: 788.41] Diagnosis: EDEMA[ICD9: 782.3] Diagnosis: HYPOTHYROIDISM[ICD9: 244.9] Diagnosis: Fatigue[ICD9: 780.79] Melba Goldman MD, [facility] CPT-4: 17379 02/15/2012 ([id number]) 16518 EST. PATIENT, LEVEL IV Diagnosis: Abdominal pain[ICD9: 789.00] Diagnosis: Fatigue[ICD9: 780.79] Diagnosis: Nausea[ICD9: 787.02] Melba Goldman MD, [facility] CPT-4: 26089 11/10/2011 11209 EST. PATIENT, LEVEL IV Diagnosis: ESSENTIAL HYPERTENSION[SNOMED: 99019449] Diagnosis: DIARRHEA[ICD9: 787.91] Diagnosis: DEPRESSIVE DISORDER NEC[ICD9: 311] Diagnosis: Irritable bowel disease[ICD9: 564.1] Melba Goldman MD, [facility] CPT- 4: 91775 08/01/2011 06535 EST. PATIENT, LEVEL III Diagnosis: ACUTE SINUSITIS[ICD9: 461.9] Diagnosis: Cough[ICD9: 786.2] Shahida Goldman MD, [facility] CPT-4: 80256 07/14/2011 [id number] EST. PATIENT, LEVEL IV Diagnosis: VACCIN FOR INFLUENZA[ICD9: V04.81] Diagnosis: ESSENTIAL HYPERTENSION[SNOMED: 78147455] Diagnosis: GENERALIZED ANXIETY DISEASE[ICD9: 300.02] Diagnosis: SLEEP DISTURBANCES[ICD9: 780.50] Shahida Goldman MD, [facility] CPT- 4: 30769 05/23/2011 27157 EST. PATIENT, LEVEL III Diagnosis: ACUTE SINUSITIS[ICD9: 461.9] Diagnosis: ALLERGIC RHINITIS[ICD9: 477.9] Diagnosis: Cough[ICD9: 786.2] Shahida Goldman MD, [facility] CPT-4: 90516 05/03/2011 09757 EST. PATIENT, LEVEL IV Diagnosis: ESSENTIAL HYPERTENSION[SNOMED: 68807034] Diagnosis: DEPRESSIVE DISORDER NEC[ICD9: 311] Diagnosis: Fatigue[ICD9: 780.79] Shahida Goldman MD, [facility] CPT-4: 69106 04/25/2011 Plan of Care Planned Activity Notes [...] warmth, discharge. 02/20/2019 Appointment: Isabelle Orozco WPtel: [phone] [id number] (15 min) Moderate 02/20/2019 Patient Education: Patient [...] good probiotic. 01/29/2019 Appointment: Melba Goldman WPtel: [phone] [facility] (15 min) Moderate 01/29/2019 Patient Education: Patient [...] acute concerns. 11/13/2018 Appointment: Shahida Manzo WPtel: [phone] [phone] [place] (15 min) Moderate 11/13/2018 Patient Education: [...] call for acute concerns. Hyperlipidemia-check fasting labs Opsiwbcqviqbuj-ohjaide-usmal labs 10/30/2018 Visit Plan: Hypertension - uncontrolled [...] call for acute concerns. Hyperlipidemia-check fasting labs Aetdmudgmllfry-oemarsb-eesdv labs 10/30/2018 Appointment: Shahida Manzo WPtel: [phone] [phone] (30 min) Complex 10/30/2018 Patient Education: Patient Medication Summary Completed 10/30/2018 Visit Plan: Conjunctivitis - rx for eye drops/lube sent electronically to the patient's pharmacy. The patient has been instructed to cleanse affected eye with warm washcloth, then place medication into affected eye four times daily. 10/08/2018 Appointment: Shahida Manzo WPtel: [phone] [phone] (30 min) Complex 10/08/2018 Patient Education: Patient Medication Summary Completed 10/08/2018 Appointment: [phone] (15 min) Moderate 07/30/2018 Visit Plan: [...] concerns. 07/16/2018 Appointment: Isabelle Orozco WPtel: [phone] [facility] (15 min) Moderate 07/16/2018 Patient Education: Patient [...] over-medication. 07/10/2018 Appointment: Shahida Manzo WPtel: [phone] [phone] (15 min) Moderate 07/10/2018 Patient Education: Patient Medication Summary Completed 07/10/2018 Patient Education: Back Pain Completed 07/10/2018 Visit Plan: Sinusitis - Pt has acute infection - pain in face, maxillary region, Pt informed to use decongestant, RX given to patient, sinus rinses also recommended. Call if symptoms do not show improvement. 05/28/2018 Appointment: Shahida Manzo WPtel: [phone] (30 min) Complex 05/28/2018 Patient Education: Patient [...] acute concerns. 02/07/2018 Appointment: Isabelle Orozco WPtel: [address] [place], [place] [phone] (15 min) Moderate 02/07/2018 Patient Education: Patient [...] fatigue 01/19/2018 Appointment: Shahida Manzo WPtel: [phone] [phone] [place] [address] (15 min) Moderate 01/19/2018 Patient Education: Patient [...] surrogate. 11/23/2017 Appointment: Isabelle Orozco WPtel: [phone] [facility] [facility] - Annual Wellness Visit 11/23/2017 Patient Education: [...] show improvement. 09/12/2017 Appointment: Isabelle Orozco WPtel: [facility] (15 min) Moderate 09/12/2017 Patient Education: Patient [...] allergy spray. 07/25/2017 Appointment: Isabelle Orozco WPtel: [facility] (30 min) Complex 07/25/2017 Patient Education: [...] are available 06/27/2017 Appointment: Shahida Manzo WPtel: [phone] (15 min) Moderate 06/27/2017 Patient Education: Patient [...] not improving. 05/08/2017 Appointment: Shahida Manzo WPtel: [address] [place], [place] [phone] (15 min) Moderate 05/08/2017 Patient Education: Patient [...] show improvement. 03/14/2017 Appointment: Shahida Manzo WPtel: [phone] (15 min) Moderate 03/14/2017 Patient Education: Patient Medication Summary Completed 03/14/2017 Appointment: Shahida Manzo WPtel: [phone] (15 min) Moderate 02/21/2017 Visit Plan: Abdominal [...] improving. 02/20/2017 Appointment: Isabelle Orozco WPtel: [phone] [facility] (30 min) Complex 02/20/2017 Patient Education: [...] use 02/06/2017 Appointment: Melba Goldman WPtel: [phone] [facility] (15 min) Moderate 02/06/2017 Patient Education: Patient [...] patient. 12/05/2016 Appointment: [phone] [facility] 12/05/2016 Patient Education: Patient Medication Summary Completed 12/05/2016 Visit Plan: Sinusitis - Pt has acute infection - pain in face, maxillary region, Pt informed to use decongestant, RX given to patient, sinus rinses also recommended. Call if symptoms do not show improvement. Dysuria- culture urine 11/28/2016 Appointment: Shahida Manzo WPtel: [phone] (15 min) Moderate 11/28/2016 Patient Education: [...] of control. 11/07/2016 Appointment: Isabelle Orozco WPtel: [address] [place], [place] [phone] [place] [address] - Annual Wellness Visit 11/07/2016 Patient Education: [...] allergy spray. 08/15/2016 Appointment: Isabelle Orozco WPtel: [facility] (15 min) Moderate 08/15/2016 Patient Education: [...] pain use. 06/07/2016 Appointment: Shahida Manzo WPtel: [phone] [phone] (10 min) Simple 06/07/2016 Patient Education: Patient [...] office today 03/14/2016 Appointment: Shahida Manzo WPtel: [phone] (15 min) Moderate 03/14/2016 Patient Education: Patient Medication Summary Completed 03/14/2016 Care Plan: COMPLETE CBC AUTOMATED LOINC : 77578-3 Pending 03/14/2016 Visit Plan: Cellulitis - The patient was instructed in appropriate wound care. The patient was instructed to use the antibiotic ointment as per RX. The patient is to call for any change in symptoms, increase in size of the lesion, increase in pain. 02/22/2016 Appointment: Isabelle Orozco WPtel: [phone] [facility] (15 min) Moderate 02/22/2016 Patient Education: [...] dr. dai 11/24/2015 Appointment: Melba Goldman WPtel: [address] [place] [address] (30 min) [facility] 11/24/2015 Patient Education: Patient Medication Summary Completed 11/24/2015 Patient Education: Obesity Completed 11/24/2015 Patient Education: Hypertension Completed 11/24/2015 Patient Education: .Cervicalgia Neck Pain Completed 11/24/2015 Care Plan: Referral Order SNOMED-CT : [id number] Ordered 11/24/2015 Visit Plan: Acute Migraine - [...] to monitor 06/11/2015 Appointment: Shahida Manzo WPtel: [address] [place], [place] [phone] (15 min) Moderate 06/11/2015 Patient Education: Patient [...] OFFICE Sleep apnea-patient needs new CPAP-will contact [facility] patient Pt reports that she uses her [...] OFFICE Sleep apnea-patient needs new CPAP-will contact [facility] patient Pt reports that she uses [...] OFFICE Sleep apnea-patient needs new CPAP-will contact [facility] patient 03/19/2015 Appointment: (15 min) Moderate 03/19/2015 [...] Patient Medication Summary Completed 01/07/2015 Patient Education: [facility] - Saving AutoInj - 18+ - Dynamic [...] areas dry Exposure to scabies-RX sent to [facility] pharmacy. 03/07/2014 Appointment: Melba Goldman WPtel: [phone] [facility] [place] rash 03/07/2014 Patient Education: Patient [...] change in blood pressure readings at home. Jjiivtq-vletnpjapwf-ewkncstu duragesic patch-appt with Dr Ortiz for pain management 11/21/2013 Appointment: Shahida Manzo WPtel: [address] [place], [place] [phone] Follow up 11/21/2013 Patient Education: Patient Medication Summary Completed 11/21/2013 Patient Education: Hypertension Completed 11/21/2013 Patient Education: .Cervicalgia Neck Pain Completed 11/21/2013 Appointment: Melba Goldman WPtel: [address] [place], [place] [phone] Other 11/19/2013 Appointment: Melba Goldman WPtel: [address] [place], [place] [phone] Follow up 11/06/2013 Appointment: Melba Goldman WPtel: [address] [place], [place] [phone] Lab Draw 10/15/2013 Patient Education: Patient Medication [...] AT BEDTIME 09/24/2013 Appointment: Shahida Manzo WPtel: [phone] Other 09/24/2013 Patient Education: Patient Medication Summary Completed 09/24/2013 Visit Plan: Paronychia/Cellulitis - continue with oral antibiotics as previously directed, return to clinic as previously directed, call for acute change in symptoms, worsening redness, warmth, discharge. 09/19/2013 Appointment: Melba Goldman WPtel: [phone] [facility] [place] Other 09/19/2013 Patient Education: Patient Medication Summary Completed 09/19/2013 Visit Plan: Conjunctivitis - rx for eye drops/lube sent electronically to the patient's pharmacy. The patient has been instructed to cleanse affected eye with warm washcloth, then place medication into affected eye four times daily. Thrush-refill nystatin-call if symptoms do not resolve 08/05/2013 Appointment: Shahida Manzo WPtel: [phone] [place] Sick 08/05/2013 Patient Education: Patient [...] show improvement. 06/03/2013 Appointment: Melba Goldman WPtel: [facility]5 [facility] Follow up 06/03/2013 Patient Education: Patient Medication Summary Completed 06/03/2013 Patient Education: Hypertension Completed 06/03/2013 Appointment: Melba Goldman WPtel: [facility]5 [facility] [place] Nurse Visit 05/13/2013 Patient Education: Patient [...] control. 05/07/2013 Appointment: Melba Goldman [facility]Ptel: [phone] [place] Follow up 05/07/2013 Patient Education: Patient Medication Summary Completed 05/07/2013 Patient Education: Hypertension Completed 05/07/2013 Patient Education: Patient Medication Summary Completed 04/30/2013 Patient Education: Hypertension Completed 04/30/2013 Visit Plan: Arthritis- occasionally uncontrolled symptoms- recommend pt to take antiinflammatory as directed for pain control. Use tylenol for break through pain symptoms. 12/03/2012 Appointment: Melba Goldman WPtel: [phone] [facility] Follow up 12/03/2012 Patient Education: Patient Medication [...] resolve 09/24/2012 Appointment: Shahida Manzo WPtel: [phone] [phone] [place] [address] 09/24/2012 Patient Education: Patient Medication Summary Completed [...] with diflucan 09/10/2012 Appointment: Melba Goldman WPtel: [facility]5 [facility] Follow up 09/10/2012 Patient Education: Patient Medication [...] pain symptoms. 08/08/2012 Appointment: Shahida Manzo WPtel: [phone] [place] [phone] [place] [address] Follow up 08/08/2012 Patient Education: Patient Medication Summary Completed 08/08/2012 Patient Education: Patient Medication Summary Completed 08/07/2012 Patient Education: Hypertension Completed 08/07/2012 Appointment: Melba Goldman WPtel: [facility] [address] Lab Draw 02/16/2012 Patient Education: Patient [...] Needs labs. 02/15/2012 Appointment: Melba Goldman WPtel: [phone] [facility] [place] Other 02/15/2012 Patient Education: Patient Medication Summary Completed 02/15/2012 Visit Plan: Abdominal pain - ultrasound tomorrow AM nothing to eat before the ultrasound from 11pm tonight bland diet. Nausea - worse with fatty foods, recommended low fat/bland diet, call if symptoms worsening. 11/10/2011 Appointment: Melba Goldman WPtel: [phone] [facility] Other 11/10/2011 Patient Education: Patient Medication Summary [...] stools. 08/01/2011 Appointment: Mel[facility] Goldman [facility]Ptel: [phone] Other 08/01/2011 Patient Education: Patient Medication Summary Completed 08/01/2011 Patient Education: High Blood Pressure: Essential Hypertension Completed 08/01/2011 Visit Plan: Sinusitis - Pt has acute infection - pain in face, maxillary region, Pt informed to use decongestant, RX given to patient, sinus rinses also recommended. Call if symptoms do not show improvement. Cough- kishore zurita 07/14/2011 Appointment: Shahida Manzo WPtel: [phone] [phone] Other 07/14/2011 Patient Education: Patient Medication Summary [...] the office. 05/23/2011 Appointment: Shahida Manzo WPtel: [address] [place] [address] Other 05/23/2011 Patient Education: Patient Medication Summary [...] cough med 05/03/2011 Appointment: Shahida Manzo WPtel: [address] [place] [address] [place] Other 05/03/2011 Patient Education: Patient Medication [...] her symptoms. 04/25/2011 Appointment: Shahida Manzo WPtel: [phone] Other 04/25/2011 Patient Education: Patient Medication [...] OFFICE Sleep apnea-patient needs new CPAP-will contact [facility] patient Pt reports that she uses her [...] OFFICE Sleep apnea-patient needs new CPAP-will contact [facility] patient Pt reports that she uses her [...] OFFICE Sleep apnea-patient needs new CPAP-will contact [facility] patient LOSARTAN 50MG DAILY MONITOR BLOOD [...] call for acute concerns. Hyperlipidemia-check fasting labs Evifeypykbtgpo-hbbzruo-zjefp labs LOSARTAN 50MG DAILY MONITOR BLOOD PRESSURE [...] call for acute concerns. Hyperlipidemia-check fasting labs Eimeuoawnhkkzs-xpnxnmq-pejpa labs . Sinusitis - Pt has acute [...] not show improvement. Gentamicin nasal spray to [facility] Increase prilosec to twice daily . [...] areas dry Exposure to scabies-RX sent to [facility] pharmacy. rocephin/kenalog . Sinusitis - Pt [...] change in blood pressure readings at home. Rartjqj-tdydgdhiuez-vzxwbwuu duragesic patch-appt with Dr Ortiz for pain [...]
--- OUTSIDE RECORDS SUMMARY | 2019-03-08 09:25 | XMS REPORT | CCD ---
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 Name Role Phone PP Unavailable CCM Unavailable Summary Purpose Interface Exchange Insurance Providers Payer name Policy type / Coverage type Covered constitution party ID Effective Begin Date Effective End Date [employer] Medicare Part B [id number] Unknown Family history Son Diagnosis Age At Onset Crohn's disease Unknown Brother Diagnosis Age At Onset Cardiovascular disease Unknown Mother Diagnosis Age At Onset Hypertension Unknown Father Diagnosis Age At Onset Cardiovascular disease Unknown Social History Social History Element Codes Description Effective Dates Marital status Unknown 04/22/2011 Number of children Unknown 3 1 son -Crohns 04/22/[address]: 295081229 Nonsmoker 04/22/2011 Allergies, Adverse Reactions, Alerts Substance [...] Instructions mupirocin 2 % topical ointment RxNorm: 939412 1 Application TOP BID 02/20/2019 No Stop Date Active doxycycline hyclate 100 mg capsule RxNorm: 9502966 1 Capsule(s) PO BID 02/20/2019 03/01/2019 Active ceftriaxone 1 gram solution for injection RxNorm: 0453996 Inj 02/20/2019 02/20/2019 Inactive piroxicam 20 mg capsule RxNorm: 158512 TAKE ONE CAPSULE BY MOUTH DAILY 02/01/2019 05/31/2019 Active hydrochlorothiazide 25 mg tablet RxNorm: 617329 Tablet(s) TAKE ONE TABLET BY MOUTH DAILY 01/29/2019 10/25/2019 Active hydrocodone 10 mg-acetaminophen 325 mg tablet RxNorm: 917324 Tablet(s) PO TAKE ONE TO TWO TABLETS BY MOUTH EVERY 6 HOURS NEEDED FOR PAIN 01/17/2019 01/31/2019 Inactive trazodone 50 mg tablet RxNorm: 619672 TAKE ONE AND ONE-HALF (1 1/2) TABLETS BY MOUTH AT BEDTIME. MAY INCREASE TO 2 TABLETS AT BEDTIME NEEDED 12/13/2018 04/01/2019 Active losartan 100 mg tablet RxNorm: 920060 1 Tablet(s) PO daily 11/13/2018 05/11/2019 Active hydrocodone 10 mg-acetaminophen 325 mg tablet RxNorm: 269108 Tablet(s) PO TAKE ONE TO TWO TABLETS BY MOUTH EVERY 6 HOURS NEEDED FOR PAIN 11/13/2018 11/27/2018 Inactive Synthroid 112 mcg tablet RxNorm: 869842 1 Tablet(s) PO daily 11/01/2018 04/29/2019 Active Brand name only! Dosage change! Synthroid 112 mcg tablet RxNorm: 050178 1 Tablet(s) PO daily 11/01/2018 10/31/2018 Inactive Brand name only! Dosage change! losartan 50 mg tablet RxNorm: 789317 1 Tablet(s) PO daily 10/30/2018 11/12/2018 Inactive Tamiflu 75 mg capsule RxNorm: 664355 1 Capsule(s) PO daily 10/30/2018 11/08/2018 Inactive Synthroid 100 mcg tablet RxNorm: 134755 1 Tablet(s) PO daily 10/30/2018 10/31/2018 Inactive Brand name only! Lexapro 20 mg tablet RxNorm: 567023 TAKE ONE AND ONE-HALF TABLET BY MOUTH DAILY 10/23/2018 10/17/2019 Active alprazolam 0.25 mg tablet RxNorm: 674556 1 Tablet(s) PO TID as needed 10/10/2018 01/07/2019 Inactive polymyxin B sulfate 10,000 unit-trimethoprim 1 mg/mL eye drops RxNorm: 731579 2 Drop(s) ophthalmic (eye) QID 10/08/2018 10/14/2018 Inactive hydrocodone 10 mg-acetaminophen 325 mg tablet RxNorm: 529231 Tablet(s) PO TAKE ONE TO TWO TABLETS BY MOUTH EVERY 6 HOURS NEEDED FOR PAIN 09/11/2018 09/25/2018 Inactive piroxicam 20 mg capsule RxNorm: 560330 TAKE ONE CAPSULE BY MOUTH DAILY 08/09/2018 01/05/2019 Inactive trazodone 50 mg tablet RxNorm: 619156 TAKE ONE AND ONE-HALF (1 1/2) TABLET BY MOUTH AT BEDTIME. MAY INCREASE TO 2 TABLETS AT BEDTIME NEEDED 08/02/2018 11/19/2018 Inactive Nexium 40 mg capsule,delayed release RxNorm: 273869 TAKE ONE CAPSULE BY MOUTH TWICE A DAY 07/23/2018 11/19/2018 Inactive Bystolic 5 mg tablet RxNorm: 199671 1 Tablet(s) PO daily to take with 10 mg daily to equal 15mg daily 07/17/2018 10/29/2018 Inactive alprazolam 0.25 mg tablet RxNorm: 246357 1 Tablet(s) PO TID as needed 07/16/2018 10/29/2018 Inactive hydrocodone 10 mg-acetaminophen 325 mg tablet RxNorm: 603576 Tablet(s) PO TAKE ONE TO TWO TABLETS BY MOUTH EVERY 6 HOURS NEEDED FOR PAIN 07/10/2018 07/24/2018 Inactive prednisone 20 mg tablet RxNorm: 509280 1 Tablet(s) PO BID 07/10/2018 07/14/2018 Inactive Phenergan with Codeine Syrup RxNorm: 5-10 Milliliter(s) PO Q6 PRN 06/28/2018 01/28/2019 Inactive prednisone 20 mg tablet RxNorm: 339145 2 Tablet(s) PO daily 05/31/2018 06/04/2018 Inactive prednisone 20 mg tablet RxNorm: 089005 2 Tablet(s) PO daily 05/31/2018 05/30/2018 Inactive ceftriaxone 500 mg solution for injection RxNorm: 8263328 Inj 05/28/2018 05/28/2018 Inactive doxycycline hyclate 100 mg tablet RxNorm: 7736474 1 Tablet(s) PO BID 05/28/2018 06/06/2018 Inactive Kenalog 40 mg/mL suspension for injection RxNorm: 2035506 Milliliter(s) Inj 05/28/2018 05/28/2018 Inactive hydrocodone 10 mg-acetaminophen 325 mg tablet RxNorm: 573372 Tablet(s) PO TAKE ONE TO TWO TABLETS BY MOUTH EVERY 6 HOURS NEEDED FOR PAIN 05/09/2018 05/23/2018 Inactive alprazolam 0.25 mg tablet RxNorm: 577630 1 Tablet(s) PO daily as needed 04/25/2018 07/15/2018 Inactive Bystolic 10 mg tablet RxNorm: 678502 TAKE ONE TABLET BY MOUTH DAILY 04/16/2018 09/12/2018 Inactive hydrocodone 10 mg-acetaminophen 325 mg tablet RxNorm: 320326 Tablet(s) PO TAKE ONE TO TWO TABLETS BY MOUTH EVERY 6 HOURS NEEDED FOR PAIN 03/06/2018 03/20/2018 Inactive trazodone 50 mg tablet RxNorm: 546180 TAKE ONE AND ONE-HALF (1 1/2) TABLET BY MOUTH AT BEDTIME. MAY INCREASE TO 2 TABLETS AT BEDTIME NEEDED 02/23/2018 06/12/2018 Inactive mupirocin 2 % topical ointment RxNorm: 566889 1 TOP BID 02/09/2018 05/27/2018 Inactive Zofran 4 mg tablet RxNorm: 602768 1 Tablet(s) PO TID as needed 02/08/2018 No Stop Date Active Keflex 500 mg capsule RxNorm: 381767 1 Capsule(s) PO TID 02/07/2018 02/13/2018 Inactive alprazolam 0.25 mg tablet RxNorm: 731955 1 Tablet(s) PO daily as needed 01/24/2018 07/09/2018 Inactive hydrocodone 10 mg-acetaminophen 325 mg tablet RxNorm: 751314 Tablet(s) PO TAKE ONE TO TWO TABLETS BY MOUTH EVERY 6 HOURS NEEDED FOR PAIN 01/19/2018 02/02/2018 Inactive hydrochlorothiazide 25 mg tablet RxNorm: 504012 Tablet(s) TAKE ONE TABLET BY MOUTH DAILY 01/19/2018 01/19/2018 Inactive Kenalog 40 mg/mL suspension for injection RxNorm: 1054305 1 Milliliter(s) Inj 01/19/2018 01/19/2018 Inactive piroxicam 20 mg capsule RxNorm: 522752 1 Capsule(s) PO daily 01/19/2018 07/17/2018 Inactive D/C ORDER FOR HCTZ ceftriaxone 500 mg solution for injection RxNorm: 3246163 500 Milligram(s) Inj 01/19/2018 01/19/2018 Inactive Nexium 40 mg capsule,delayed release RxNorm: 339075 TAKE ONE CAPSULE BY MOUTH TWICE A DAY 01/18/2018 04/17/2018 Inactive Nexium 40 mg capsule,delayed release RxNorm: 645449 TAKE ONE CAPSULE BY MOUTH TWICE A DAY 01/15/2018 04/14/2018 Inactive ciprofloxacin 0.3 % eye drops RxNorm: 807372 2 Drop(s) ophthalmic (eye) Q2H while awake x 2 days, then Q4H x 5 days 11/23/2017 05/27/2018 Inactive Keflex 500 mg capsule RxNorm: 255041 1 Capsule(s) PO TID 11/23/2017 11/29/2017 Inactive hydrocodone 10 mg-acetaminophen 325 mg tablet RxNorm: 593092 Tablet(s) PO TAKE ONE TO TWO TABLETS BY MOUTH EVERY 6 HOURS NEEDED FOR PAIN 10/30/2017 11/13/2017 Inactive Augmentin 500 mg-125 mg tablet RxNorm: 843472 1 Tablet(s) PO TID 10/27/2017 11/05/2017 Inactive alprazolam 0.25 mg tablet RxNorm: 812757 1 Tablet(s) PO daily as needed 10/26/2017 04/24/2018 Inactive trazodone 50 mg tablet RxNorm: 809717 TAKE ONE AND ONE-HALF (1 1/2) TABLET BY MOUTH AT BEDTIME. MAY INCREASE TO 2 TABLETS AT BEDTIME NEEDED 09/25/2017 02/03/2018 Inactive Lexapro 20 mg tablet RxNorm: 999133 TAKE ONE AND ONE-HALF TABLET BY MOUTH DAILY 09/15/2017 09/09/2018 Inactive Flagyl 500 mg tablet RxNorm: 820203 1 Tablet(s) PO TID 09/12/2017 09/21/2017 Inactive promethazine 25 mg tablet RxNorm: 794909 1 Tablet(s) PO TID as needed nausea and vomitting THIS WILL MAKE YOU SLEEPY 09/12/2017 11/08/2017 Inactive Keflex 500 mg capsule RxNorm: 898696 1 Capsule(s) PO QID 08/25/2017 08/31/2017 Inactive [SAVINGS FOR UNINSURED PATIENTS -- [id number], PCN: [id number], Group: [id number], ID# [id number], Process claim through [employer], for questions: . THIS IS NOT INSURANCE.] alprazolam 0.25 mg tablet RxNorm: 822816 1 Tablet(s) PO daily as needed 07/31/2017 04/24/2018 Inactive prednisone 20 mg tablet RxNorm: 581543 2 Tablet(s) PO daily 07/25/2017 07/29/2017 Inactive Augmentin 500 mg-125 mg tablet RxNorm: 219950 1 Tablet(s) PO TID 07/25/2017 08/03/2017 Inactive trazodone 50 mg tablet RxNorm: 170721 TAKE ONE AND ONE-HALF (1 1/2) TABLET BY MOUTH AT BEDTIME. MAY INCREASE TO 2 TABLETS AT BEDTIME NEEDED 06/30/2017 09/03/2017 Inactive Bystolic 10 mg tablet RxNorm: 207606 TAKE ONE TABLET BY MOUTH DAILY 06/30/2017 2017 Inactive hydrochlorothiazide 25 mg tablet RxNorm: 106564 TAKE ONE TABLET BY MOUTH DAILY 06/30/2017 01/18/2018 Inactive Flagyl 500 mg tablet RxNorm: 337517 1 Tablet(s) PO TID 06/27/2017 07/03/2017 Inactive Phenergan with Codeine Syrup RxNorm: 5-10 Milliliter(s) PO Q6 PRN 06/27/2017 11/15/2017 Inactive Levaquin 500 mg tablet RxNorm: 430210 1 Tablet(s) PO daily 06/27/2017 07/03/2017 Inactive Kenalog 40 mg/mL suspension for injection RxNorm: 8278889 1 Milliliter(s) Inj 06/27/2017 06/27/2017 Inactive Nexium 40 mg capsule,delayed release RxNorm: 666737 1 Capsule(s) PO BID TAKE ONE CAPSULE BY MOUTH BID 05/22/2017 09/18/2017 Inactive Nexium 40 mg capsule,delayed release RxNorm: 644623 1 Capsule(s) PO BID TAKE ONE CAPSULE BY MOUTH BID 05/22/2017 05/21/2017 Inactive hydrocodone 10 mg-acetaminophen 325 mg tablet RxNorm: 303745 Tablet(s) PO TAKE ONE TO TWO TABLETS BY MOUTH EVERY 6 HOURS NEEDED FOR PAIN 05/17/2017 06/15/2017 Inactive Nexium 40 mg capsule,delayed release RxNorm: 183694 Capsule(s) TAKE ONE CAPSULE BY MOUTH BID 05/17/2017 05/21/2017 Inactive alprazolam 0.25 mg tablet RxNorm: 036861 1 Tablet(s) PO daily as needed 05/03/2017 07/01/2017 Inactive Levaquin 500 mg tablet RxNorm: 930247 1 Tablet(s) PO daily 04/20/2017 04/26/2017 Inactive clotrimazole 1 % topical cream RxNorm: 811551 1 Application TOP BID 04/20/2017 11/07/2017 Inactive Kenalog 40 mg/mL suspension for injection RxNorm: 5129406 Milliliter(s) Inj 04/20/2017 04/20/2017 Inactive nystatin 100,000 unit/gram topical powder RxNorm: 742265 1 Gram(s) APPLY TOPICALLY TWO TIMES A DAY 04/10/2017 07/08/2017 Inactive trazodone 50 mg tablet RxNorm: 102972 TAKE ONE AND ONE-HALF (1 1/2) TABLET BY MOUTH AT BEDTIME. MAY INCREASE TO 2 TABLETS AT BEDTIME NEEDED 03/28/2017 06/23/2017 Inactive Augmentin 875 mg-125 mg tablet RxNorm: 306593 1 Tablet(s) PO BID 03/14/2017 03/20/2017 Inactive Kenalog 40 mg/mL suspension for injection RxNorm: 0806616 1 Milliliter(s) Inj 03/14/2017 03/14/2017 Inactive Lexapro 20 mg tablet RxNorm: 673566 1.5 Tablet(s) PO daily 03/08/2017 03/07/2017 Inactive Lexapro 20 mg tablet RxNorm: 247281 1.5 Tablet(s) PO daily 03/08/2017 07/05/2017 Inactive alprazolam 0.25 mg tablet RxNorm: 099171 1 Tablet(s) PO daily as needed 02/23/2017 04/23/2017 Inactive (Response to an electronic controlled substance refill request - RxReferenceNumber: [id number]) Flagyl 500 mg tablet RxNorm: 082819 1 Tablet(s) PO TID 02/20/2017 03/01/2017 Inactive promethazine 25 mg tablet RxNorm: 524351 1 Tablet(s) PO TID as needed nausea 02/20/2017 03/01/2017 Inactive Cipro 500 mg tablet RxNorm: 081739 1 Tablet(s) PO BID 02/20/2017 03/01/2017 Inactive Flagyl 500 mg tablet RxNorm: 062819 1 Tablet(s) PO TID 02/09/2017 02/15/2017 Inactive Trintellix 10 mg tablet RxNorm: 5153150 1 Tablet(s) PO QAM 02/06/2017 03/07/2017 Inactive Efudex 5 % topical cream RxNorm: 902991 1 Application TOP BID use on skin spot on nose 02/06/2017 02/15/2017 Inactive Bystolic 10 mg tablet RxNorm: 893618 TAKE ONE TABLET BY MOUTH DAILY 02/03/2017 06/02/2017 Inactive Imitrex 50 mg tablet RxNorm: 380956 TAKE ONE TABLET BY MOUTH EVERY 8 HOURS NEEDED MAY REPEAT IN 1 HOUR OF INITIAL DOSE. DISCONTINUE FIORICET 12/22/2016 02/19/2017 Inactive Nexium 40 mg capsule,delayed release RxNorm: 814046 TAKE ONE CAPSULE BY MOUTH EVERY DAY 12/21/2016 05/16/2017 Inactive Lexapro 20 mg tablet RxNorm: 247010 Tablet(s) TAKE ONE TABLET BY MOUTH DAILY 12/05/2016 02/05/2017 Inactive Augmentin 875 mg-125 mg tablet RxNorm: 847872 1 Tablet(s) PO BID 11/28/2016 12/04/2016 Inactive ceftriaxone 500 mg solution for injection RxNorm: 5432000 1 Milliliter(s) Inj 11/28/2016 11/28/2016 Inactive hydrocodone 10 mg-acetaminophen 325 mg tablet RxNorm: 544225 Tablet(s) PO TAKE ONE TO TWO TABLETS BY MOUTH EVERY 6 HOURS NEEDED FOR PAIN 11/28/2016 05/16/2017 Inactive (Appended: Controlled substance eRx refill - RxReferenceNumber: [id number]) prednisone 20 mg tablet RxNorm: 015899 2 Tablet(s) PO daily 11/28/2016 12/02/2016 Inactive trazodone 50 mg tablet RxNorm: 909478 Tablet(s) TAKE 1 AND 1/2 TABLETS EVERY NIGHT AT BEDTIME , MAY INCREASE TO 2 TABLETS AT BEDTIME NEEDED 11/21/2016 11/20/2016 Inactive Synthroid 100 mcg tablet RxNorm: 506095 1 Tablet(s) PO daily 11/21/2016 05/19/2017 Inactive Brand name only! trazodone 50 mg tablet RxNorm: 806286 TAKE 1 AND 1/2 TABLETS EVERY NIGHT AT BEDTIME , MAY INCREASE TO 2 TABLETS AT BEDTIME NEEDED 11/21/2016 08/01/2018 Inactive Synthroid 100 mcg tablet RxNorm: 251527 1 Tablet(s) PO daily TAKE ONE TABLET BY MOUTH DAILY 11/08/2016 11/20/2016 Inactive ceftriaxone 500 mg solution for injection RxNorm: 7433189 Inj 11/07/2016 11/07/2016 Inactive Kenalog 40 mg/mL suspension for injection RxNorm: 7053717 Milliliter(s) Inj 11/07/2016 11/07/2016 Inactive Xanax 0.25 mg tablet RxNorm: 567105 1 Tablet(s) PO daily as needed 10/31/2016 05/02/2017 Inactive alprazolam 0.25 mg tablet RxNorm: 678073 1 Tablet(s) PO daily as needed 10/21/2016 12/18/2016 Inactive (Response to an electronic controlled substance refill request - RxReferenceNumber: [id number]) hydrochlorothiazide 25 mg tablet RxNorm: 821393 TAKE ONE TABLET BY MOUTH DAILY 10/11/2016 04/08/2017 Inactive Xanax 0.25 mg tablet RxNorm: 623067 1 Tablet(s) PO daily as needed 08/23/2016 10/19/2016 Inactive Flonase Allergy Relief 50 mcg/actuation nasal spray,suspension RxNorm: 7194877 1 [place]ain NASAL daily 08/15/2016 No Stop Date Active amoxicillin 500 mg capsule RxNorm: 359062 1 Capsule(s) PO TID 08/15/2016 08/24/2016 Inactive Bystolic 10 mg tablet RxNorm: 692079 TAKE ONE TABLET BY MOUTH DAILY 08/01/2016 12/28/2016 Inactive trazodone 50 mg tablet RxNorm: 119303 TAKE 1 AND 1/2 TABLETS EVERY NIGHT AT BEDTIME , MAY INCREASE TO 2 TABLETS AT BEDTIME NEEDED 07/25/2016 11/11/2016 Inactive alprazolam 0.25 mg tablet RxNorm: 299485 1 Tablet(s) PO daily as needed 07/25/2016 08/22/2016 Inactive (Response to an electronic controlled substance refill request - RxReferenceNumber: [id number]) Imitrex 50 mg tablet RxNorm: 664444 1 Tablet(s) PO Q8 as needed may repeat x1 dose in 1 hour of inital dose. 07/13/2016 No Stop Date Active Lexapro 20 mg tablet RxNorm: 097950 TAKE 1/2 TABLET BY MOUTH DAILY FOR 10 DAYS, THEN TAKE ONE TABLET BY MOUTH DAILY 06/27/2016 11/23/2016 Inactive Synthroid 100 mcg tablet RxNorm: 881496 TAKE ONE TABLET BY MOUTH DAILY 06/20/2016 11/07/2016 Inactive Augmentin 500 mg-125 mg tablet RxNorm: 935291 1 Tablet(s) PO TID 06/07/2016 06/13/2016 Inactive hydrocodone 10 mg-acetaminophen 325 mg tablet RxNorm: 106016 Tablet(s) PO TAKE ONE TO TWO TABLETS BY MOUTH EVERY 6 HOURS NEEDED FOR PAIN 06/07/2016 11/27/2016 Inactive (Appended: Controlled substance eRx refill - RxReferenceNumber: [id number]) hydrochlorothiazide 25 mg tablet RxNorm: 410003 TAKE ONE TABLET BY MOUTH DAILY 03/14/2016 09/09/2016 Inactive Edarbi 40 mg tablet RxNorm: 4554311 1 Tablet(s) PO daily 03/14/2016 06/06/2016 Inactive trazodone 50 mg tablet RxNorm: 745622 Tablet(s) TAKE 1 AND 1/2 TABLET AT BEDTIME. MAY INCREASE TO 2 TABLETS IF NECESSARY 02/25/2016 07/05/2016 Inactive Imitrex 50 mg tablet RxNorm: 190008 1 Tablet(s) PO Q8 as needed may repeat x1 dose in 1 hour of inital dose. 02/25/2016 07/12/2016 Inactive dc fioricet Xanax 0.25 mg tablet RxNorm: 841350 1 Tablet(s) PO daily as needed 02/24/2016 07/21/2016 Inactive mupirocin 2 % topical ointment RxNorm: 286299 1 TOP BID 02/22/2016 11/08/2017 Inactive Bactrim DS 800 mg-160 mg tablet RxNorm: 028353 1 Tablet(s) PO BID 02/22/2016 03/02/2016 Inactive Fioricet 50 mg-325 mg-40 mg tablet RxNorm: 863511 Tablet(s) TAKE ONE TABLET BY MOUTH EVERY 4 HOURS NEEDED FOR headache 02/12/2016 02/24/2016 Inactive (Response to an electronic controlled substance refill request - RxReferenceNumber: [id number]) Fioricet 50 mg-325 mg-40 mg tablet RxNorm: 791507 Tablet(s) TAKE ONE TABLET BY MOUTH EVERY 4 HOURS NEEDED FOR headache 02/12/2016 02/11/2016 Inactive (Response to an electronic controlled substance refill request - RxReferenceNumber: [id number]) Nexium 40 mg capsule,delayed release RxNorm: 847821 TAKE ONE CAPSULE BY MOUTH EVERY DAY 02/01/2016 10/27/2016 Inactive Bystolic 10 mg tablet RxNorm: 251472 Tablet(s) TAKE ONE TABLET BY MOUTH DAILY 01/06/2016 07/03/2016 Inactive Xanax 0.25 mg tablet RxNorm: 796558 1 Tablet(s) PO daily as needed 12/28/2015 02/23/2016 Inactive Levaquin 500 mg tablet RxNorm: 662616 1 Tablet(s) PO daily take a probiotic daily 12/14/2015 02/11/2016 Inactive Levaquin 500 mg tablet RxNorm: 285120 1 Tablet(s) PO daily take a probiotic daily 12/14/2015 12/13/2015 Inactive prednisone 20 mg tablet RxNorm: 710210 1 Tablet(s) PO BID 12/07/2015 12/13/2015 Inactive Augmentin 875 mg-125 mg tablet RxNorm: 158336 1 Tablet(s) PO BID 12/07/2015 12/13/2015 Inactive ceftriaxone 500 mg solution for injection RxNorm: 2589144 Inj 12/07/2015 12/07/2015 Inactive Phenergan with Codeine Syrup RxNorm: 5-10 Milliliter(s) PO Q6 PRN 12/07/2015 06/26/2017 Inactive alprazolam 0.25 mg tablet RxNorm: 834012 1 Tablet(s) PO daily as needed 11/27/2015 12/25/2015 Inactive (Response to an electronic controlled substance refill request - RxReferenceNumber: [id number]) trazodone 50 mg tablet RxNorm: 783995 TAKE 1 AND 1/2 TABLET AT BEDTIME FOR 2 WEEKS, MAY INCREASE TO 2 TABLETS IF NECESSARY AFTER THAT 11/26/2015 02/24/2016 Inactive ceftriaxone 500 mg solution for injection RxNorm: 7251519 Milliliter(s) Inj 11/24/2015 11/24/2015 Inactive prednisone 10 mg tablet RxNorm: 458113 3 Tablet(s) PO daily 11/24/2015 11/28/2015 Inactive cefdinir 300 mg capsule RxNorm: 680361 1 Capsule(s) PO BID 11/24/2015 11/30/2015 Inactive Kenalog 40 mg/mL suspension for injection RxNorm: 6475491 1 Milliliter(s) Inj 11/24/2015 11/24/2015 Inactive Lexapro 20 mg tablet RxNorm: 616793 TAKE 1/2 TABLET BY MOUTH DAILY FOR 10 DAYS, THEN TAKE ONE TABLET BY MOUTH DAILY 11/23/2015 05/20/2016 Inactive Lipitor 10 mg tablet RxNorm: 665012 Tablet(s) TAKE ONE TABLET BY MOUTH EVERY DAY 10/26/2015 11/06/2016 Inactive Norvasc 10 mg tablet RxNorm: 356811 Tablet(s) PO TAKE ONE TABLET BY MOUTH EVERY DAY 10/26/2015 01/18/2018 Inactive hydrochlorothiazide 25 mg tablet RxNorm: 511876 TAKE ONE TABLET BY MOUTH DAILY 10/20/2015 01/17/2016 Inactive promethazine 25 mg/mL injection solution RxNorm: 807674 Milliliter(s) Inj 08/27/2015 08/27/2015 Inactive ketorolac 60 mg/2 mL intramuscular solution RxNorm: 112510 Milliliter(s) IM 08/27/2015 08/27/2015 Inactive alprazolam 0.25 mg tablet RxNorm: 758700 1 Tablet(s) PO daily as needed 08/27/2015 10/25/2017 Inactive (Response to an electronic controlled substance refill request - RxReferenceNumber: [id number]) Lexapro 20 mg tablet RxNorm: 219794 TAKE 1/2 TABLET BY MOUTH DAILY FOR 10 DAYS, THEN TAKE ONE TABLET BY MOUTH DAILY 08/13/2015 11/10/2015 Inactive Flonase 50 mcg/actuation nasal spray,suspension RxNorm: 368998 PLACE 1 SPRAY IN EACH NOSTRIL DAILY 08/13/2015 02/08/2016 Inactive Augmentin 500 mg-125 mg tablet RxNorm: 365742 1 Tablet(s) PO TID 08/10/2015 08/16/2015 Inactive Kenalog 40 mg/mL suspension for injection RxNorm: 1198565 Milliliter(s) Inj 08/10/2015 08/10/2015 Inactive ceftriaxone 500 mg solution for injection RxNorm: 6549674 Inj 08/10/2015 08/10/2015 Inactive nystatin 100,000 unit/mL oral suspension RxNorm: 246542 4 Milliliter(s) PO QID 08/10/2015 08/16/2015 Inactive trazodone 50 mg tablet RxNorm: 106105 TAKE 1 AND 1/2 TABLET AT BEDTIME FOR 2 WEEKS, MAY INCREASE TO 2 TABLETS IF NECESSARY AFTER THAT 07/31/2015 11/25/2015 Inactive ceftriaxone 500 mg solution for injection RxNorm: 5030018 1 Milliliter(s) Inj 07/28/2015 07/28/2015 Inactive Bactrim DS 800 mg-160 mg tablet RxNorm: 467818 1 Tablet(s) PO BID 07/28/2015 08/06/2015 Inactive Bactroban 2 % topical ointment RxNorm: 087813 1 Application TOP BID 07/28/2015 08/06/2015 Inactive Diflucan 150 mg tablet RxNorm: 458466 1 Tablet(s) PO daily 06/11/2015 06/17/2015 Inactive clotrimazole 1 % topical cream RxNorm: 297664 1 Application TOP BID 06/11/2015 07/10/2015 Inactive Bystolic 10 mg tablet RxNorm: 042581 TAKE ONE TABLET BY MOUTH DAILY 06/08/2015 12/04/2015 Inactive alprazolam 0.25 mg tablet RxNorm: 767722 1 Tablet(s) PO daily as needed 06/01/2015 08/25/2015 Inactive (Response to an electronic controlled substance refill request - RxReferenceNumber: [id number]) Fioricet 50 mg-325 mg-40 mg tablet RxNorm: 193258 Tablet(s) TAKE ONE TABLET BY MOUTH EVERY 4 HOURS NEEDED FOR headache 05/28/2015 06/08/2015 Inactive (Response to an electronic controlled substance refill request - RxReferenceNumber: [id number]) trazodone 50 mg tablet RxNorm: 875304 TAKE 1 AND 1/2 TABLET AT BEDTIME FOR 2 WEEKS, MAY INCREASE TO 2 TABLETS IF NECESSARY AFTER THAT 05/25/2015 08/22/2015 Inactive trazodone 50 mg tablet RxNorm: 496273 TAKE 1 AND 1/2 TABLET AT BEDTIME FOR 2 WEEKS, MAY INCREASE TO 2 TABLETS IF NECESSARY AFTER THAT 05/25/2015 05/24/2015 Inactive Synthroid 100 mcg tablet RxNorm: 357546 TAKE ONE TABLET BY MOUTH DAILY 04/23/2015 01/17/2016 Inactive Lipitor 10 mg tablet RxNorm: 931173 TAKE ONE TABLET BY MOUTH EVERY DAY 04/23/2015 10/25/2015 Inactive Kenalog 40 mg/mL suspension for injection RxNorm: 1455118 Milliliter(s) Inj 03/19/2015 03/19/2015 Inactive Lexapro 20 mg tablet RxNorm: 746536 1 Tablet(s) PO daily 03/19/2015 07/16/2015 Inactive 1/2 tab daily x 10 days then 1 tab daily hydrocodone 10 mg-acetaminophen 325 mg tablet RxNorm: 217094 Tablet(s) PO TAKE ONE TO TWO TABLETS BY MOUTH EVERY 6 HOURS NEEDED FOR PAIN 03/19/2015 06/06/2016 Inactive (Appended: Controlled substance eRx refill - RxReferenceNumber: [id number]) Carafate 1 gram tablet RxNorm: 277297 1 Tablet(s) PO AC & HS 03/19/2015 06/16/2015 Inactive dissolve in water and take as a slurry hydrochlorothiazide 25 mg tablet RxNorm: 280038 1 Tablet(s) PO daily 03/12/2015 09/07/2015 Inactive Nexium 40 mg capsule,delayed release RxNorm: 426288 TAKE ONE CAPSULE BY MOUTH EVERY DAY 02/26/2015 12/22/2015 Inactive Cymbalta 60 mg capsule,delayed release RxNorm: 678847 TAKE ONE CAPSULE BY MOUTH TWICE A DAY 02/23/2015 03/18/2015 Inactive alprazolam 0.25 mg tablet RxNorm: 226081 1 Tablet(s) PO daily as needed 02/11/2015 05/10/2015 Inactive (Response to an electronic controlled substance refill request - RxReferenceNumber: [id number]) trazodone 50 mg tablet RxNorm: 830985 TAKE 1 AND 1/2 TABLET AT BEDTIME FOR 2 WEEKS, MAY INCREASE TO 2 TABLETS IF NECESSARY AFTER THAT 01/27/2015 05/24/2015 Inactive Augmentin 500 mg-125 mg tablet RxNorm: 182579 1 Tablet(s) PO TID 01/07/2015 01/13/2015 Inactive gentamicin 0.3 % eye drops RxNorm: 810783 3 Drop(s) OPH QID 01/07/2015 01/13/2015 Inactive [AttnRPh: Saving apply/adjudicate RxGRP:[id number] RxBIN:[id number] RxPCN: ID#:[id number]] scopolamine 1.5 mg transdermal 72 hour patch RxNorm: 665389 1 Patch TD q72 hours 01/07/2015 11/23/2015 Inactive Synthroid 100 mcg tablet RxNorm: 790716 TAKE ONE TABLET BY MOUTH ONCE A DAY 01/06/2015 04/22/2015 Inactive nystatin 100,000 unit/gram topical powder RxNorm: 576419 APPLY TOPICALLY TWO TIMES A DAY 12/18/2014 03/17/2015 Inactive alprazolam 0.25 mg tablet RxNorm: 343268 TAKE ONE TABLET BY MOUTH DAILY NEEDED 10/30/2014 11/28/2014 Inactive (Response to an electronic controlled substance refill request - RxReferenceNumber: [id number]) alprazolam 0.25 mg tablet RxNorm: 013892 Tablet(s) TAKE ONE TABLET BY MOUTH DAILY 10/30/2014 10/29/2014 Inactive (Response to an electronic controlled substance refill request - RxReferenceNumber: [id number]) Lipitor 10 mg tablet RxNorm: 039487 TAKE ONE TABLET BY MOUTH EVERY DAY 10/30/2014 02/26/2015 Inactive alprazolam 0.25 mg tablet RxNorm: 645587 TAKE ONE TABLET BY MOUTH DAILY 10/07/2014 10/29/2014 Inactive (Response to an electronic controlled substance refill request - RxReferenceNumber: [id number]) alprazolam 0.25 mg tablet RxNorm: 037461 TAKE ONE TABLET BY MOUTH DAILY 10/06/2014 10/07/2014 Inactive (Response to an electronic controlled substance refill request - RxReferenceNumber: [id number]) alprazolam 0.25 mg tablet RxNorm: 586106 Tablet(s) TAKE ONE TABLET BY MOUTH EVERY DAY NEEDED 09/30/2014 10/06/2014 Inactive (Response to an electronic controlled substance refill request - RxReferenceNumber: [id number]) Fioricet 50 mg-325 mg-40 mg tablet RxNorm: 161362 Tablet(s) TAKE ONE TABLET BY MOUTH EVERY 4 HOURS NEEDED FOR headache 09/29/2014 10/12/2014 Inactive (Response to an electronic controlled substance refill request - RxReferenceNumber: [id number]) Bystolic 10 mg tablet RxNorm: 687062 1 Tablet(s) PO daily TAKE ONE TABLET BY MOUTH EVERY DAY 09/29/2014 04/26/2015 Inactive Bystolic 5 mg tablet RxNorm: 292297 TAKE 1 AND 1/2 TABLETS ONCE DAILY 09/24/2014 09/23/2014 Inactive Bystolic 5 mg tablet RxNorm: 628487 Tablet(s) TAKE 1 AND 1/2 TABLETS ONCE DAILY 09/24/2014 09/18/2015 Inactive gentamicin 0.3 % eye drops RxNorm: 731033 3 Drop(s) OPH QID 09/23/2014 09/29/2014 Inactive trazodone 50 mg tablet RxNorm: 921502 TAKE 1 AND 1/2 TABLET AT BEDTIME FOR 2 WEEKS, MAY INCREASE TO 2 TABLETS IF NECESSARY AFTER THAT 09/22/2014 01/26/2015 Inactive Fioricet 50 mg-325 mg-40 mg tablet RxNorm: 708665 TAKE ONE TABLET BY MOUTH EVERY 4 HOURS NEEDED FOR PAIN 09/17/2014 09/28/2014 Inactive (Response to an electronic controlled substance refill request - RxReferenceNumber: [id number]) Duragesic 50 mcg/hr transdermal patch RxNorm: 281168 1 TD q72 hours 08/07/2014 01/06/2015 Inactive [SAVINGS FOR UNINSURED PATIENTS -- BIN:[id number], PCN: ASPROD1, Group: [facility], ID# [id number], Process claim through Cure[employer], for questions: . THIS IS NOT INSURANCE.] alprazolam 0.25 mg tablet RxNorm: 210428 TAKE ONE TABLET BY MOUTH EVERY DAY NEEDED 07/31/2014 08/29/2014 Inactive (Response to an electronic controlled substance refill request - RxReferenceNumber: [id number]) alprazolam 0.25 mg tablet RxNorm: 975135 1 Tablet(s) PO daily as needed TAKE ONE TABLET BY MOUTH EVERY DAY NEEDED 07/30/2014 08/01/2014 Inactive (Response to an electronic controlled substance refill request - RxReferenceNumber: [id number]) Diflucan 150 mg tablet RxNorm: 494870 1 Tablet(s) PO daily 06/25/2014 07/01/2014 Inactive [SAVINGS FOR UNINSURED PATIENTS -- BIN:[id number], PCN: ASPROD1, Group: [id number], ID# [id number], Process claim through MedImp[employer], for questions: . THIS IS NOT INSURANCE.] Kenalog 40 mg/mL suspension for injection RxNorm: 4418054 Milliliter(s) Inj 06/23/2014 06/23/2014 Inactive [SAVINGS FOR UNINSURED PATIENTS -- BIN:615186, PCN: ASPROD1, Group: [id number], ID# [id number], Process claim through MedImp[employer], for questions: . THIS IS NOT INSURANCE.] ceftriaxone 500 mg solution for injection RxNorm: 558413 Inj 06/23/2014 06/23/2014 Inactive [SAVINGS FOR UNINSURED PATIENTS -- BIN:286403, PCN: ASPROD1, Group: [id number], ID# [id number], Process claim through MedImp[employer], for questions: . THIS IS NOT INSURANCE.] Levaquin 500 mg tablet RxNorm: 353065 1 Tablet(s) PO daily 06/23/2014 07/13/2014 Inactive [SAVINGS FOR UNINSURED PATIENTS -- BIN:121498, PCN: ASPROD1, Group: [id number], ID# [id number], Process claim through MedImp[employer], for questions: . THIS IS NOT INSURANCE.] Duragesic 50 mcg/hr transdermal patch RxNorm: 374058 1 TD q72 hours 06/05/2014 08/06/2014 Inactive [SAVINGS FOR UNINSURED PATIENTS -- BIN:264822, PCN: ASPROD1, Group: [id number], ID# [id number], Process claim through MedImp[employer], for questions: . THIS IS NOT INSURANCE.] alprazolam 0.25 mg tablet RxNorm: 874070 1 Tablet(s) PO daily as needed TAKE ONE TABLET BY MOUTH EVERY DAY NEEDED 06/02/2014 07/29/2014 Inactive (Response to an electronic controlled substance refill request - RxReferenceNumber: [id number]) nystatin 100,000 unit/gram topical powder RxNorm: 677156 APPLY TO AFFECTED AREA(S) TWO TIMES A DAY 05/01/2014 06/14/2014 Inactive hydrochlorothiazide 25 mg tablet RxNorm: 842977 TAKE ONE TABLET BY MOUTH EVERY DAY MUST CALL MD FOR APPOINTMENT 04/24/2014 10/20/2014 Inactive alprazolam 0.25 mg tablet RxNorm: 779361 Tablet(s) TAKE ONE TABLET BY MOUTH EVERY DAY NEEDED 04/16/2014 06/02/2014 Inactive (Response to an electronic controlled substance refill request - RxReferenceNumber: [id number]) alprazolam 0.25 mg tablet RxNorm: 639527 TAKE ONE TABLET BY MOUTH EVERY DAY NEEDED 04/16/2014 05/15/2014 Inactive (Response to an electronic controlled substance refill request - RxReferenceNumber: [id number]) alprazolam 0.25 mg tablet RxNorm: 411890 TAKE ONE TABLET BY MOUTH EVERY DAY NEEDED 04/16/2014 05/15/2014 Inactive (Response to an electronic controlled substance refill request - RxReferenceNumber: [id number]) alprazolam 0.25 mg tablet RxNorm: 260724 TAKE ONE TABLET BY MOUTH EVERY DAY NEEDED 04/14/2014 04/16/2014 Inactive (Response to an electronic controlled substance refill request - RxReferenceNumber: [id number]) Lipitor 10 mg tablet RxNorm: 619426 TAKE ONE TABLET BY MOUTH EVERY DAY 04/14/2014 09/10/2014 Inactive alprazolam 0.25 mg tablet RxNorm: 155001 TAKE ONE TABLET BY MOUTH EVERY DAY NEEDED 04/14/2014 04/14/2014 Inactive (Response to an electronic controlled substance refill request - RxReferenceNumber: [id number]) alprazolam 0.25 mg tablet RxNorm: 605613 TAKE ONE TABLET BY MOUTH EVERY DAY NEEDED 04/14/2014 04/15/2014 Inactive (Response to an electronic controlled substance refill request - RxReferenceNumber: [id number]) alprazolam 0.25 mg tablet RxNorm: 195712 TAKE ONE TABLET BY MOUTH EVERY DAY NEEDED 04/14/2014 04/14/2014 Inactive (Response to an electronic controlled substance refill request - [id number]) nystatin 100,000 unit/gram topical powder RxNorm: 444289 1 Application TOP BID 04/03/2014 07/01/2014 Inactive [SAVINGS FOR UNINSURED PATIENTS -- BIN:342166, PCN: ASPROD1, Group: [id number], ID# [id number], Process claim through MedImpact, for questions: . THIS IS NOT INSURANCE.] Keflex 500 mg capsule RxNorm: 939686 1 Capsule(s) PO QID 04/03/2014 04/09/2014 Inactive [SAVINGS FOR UNINSURED PATIENTS -- BIN:451180, PCN: ASPROD1, Group: [id number], ID# [id number], Process claim through MedImpact, for questions: . THIS IS NOT INSURANCE.] Synthroid 100 mcg tablet RxNorm: 634923 1 Tablet(s) PO daily TAKE ONE TABLET BY MOUTH EVERY DAY 04/01/2014 01/05/2015 Inactive [SAVINGS FOR UNINSURED PATIENTS -- BIN:284698, PCN: ASPROD1, Group: [facility], ID# [id number], Process claim through MedImpact, for questions: . THIS IS NOT INSURANCE.] Duragesic 50 mcg/hr transdermal patch RxNorm: 550142 1 TD q72 hours 03/24/2014 06/04/2014 Inactive [SAVINGS FOR UNINSURED PATIENTS -- BIN:171981, PCN: ASPROD1, Group: [id number], ID# [id number], Process claim through MedImpact, for questions: . THIS IS NOT INSURANCE.] trazodone 50 mg tablet RxNorm: 865160 TAKE 1 AND 1/2 TABLET AT BEDTIME FOR 2 WEEKS, MAY INCREASE TO 2 TABLETS IF NECESSARY AFTER THAT 03/18/2014 09/13/2014 Inactive nystatin 100,000 unit/gram topical powder RxNorm: 206410 1 Application TOP BID 03/07/2014 03/16/2014 Inactive [SAVINGS FOR UNINSURED PATIENTS -- BIN:689654, PCN: ASPROD1, Group: [facility], ID# [id number], Process claim through MedImpact, for questions: . THIS IS NOT INSURANCE.] permethrin 5 % topical cream RxNorm: 963398 1 Application TOP daily 03/07/2014 11/23/2015 Inactive apply head to toe-leave on overnight and wash off in the a.m. May repeat x 1 if needed Diflucan 150 mg tablet RxNorm: 500050 1 Tablet(s) PO daily 03/07/2014 03/09/2014 Inactive [SAVINGS FOR UNINSURED PATIENTS -- BIN:794312, PCN: ASPROD1, Group: [id number], ID# [id number], Process claim through MedImpact, for questions: . THIS IS NOT INSURANCE.] hydrochlorothiazide 25 mg tablet RxNorm: 192271 TAKE ONE TABLET BY MOUTH EVERY DAY MUST CALL MD FOR APPOINTMENT 03/06/2014 04/23/2014 Inactive Zithromax Z-Sergio 250 mg tablet RxNorm: 963720 Tablet(s) PO as directed 03/04/2014 11/23/2015 Inactive [SAVINGS FOR UNINSURED PATIENTS -- BIN:850494, PCN: ASPROD1, Group: [facility], ID# [id number], Process claim through MedImpact, for questions: . THIS IS NOT INSURANCE.] Flonase 50 mcg/actuation nasal spray,suspension RxNorm: 818420 1 Twain NASAL daily 03/04/2014 07/01/2014 Inactive [SAVINGS FOR UNINSURED PATIENTS -- BIN:757761, PCN: ASPROD1, Group: [id number], ID# [id number], Process claim through MedImpact, for questions: . THIS IS NOT INSURANCE.] alprazolam 0.25 mg tablet RxNorm: 616726 1 Tablet(s) PO PRN TAKE ONE TABLET BY MOUTH EVERY DAY NEEDED 02/25/2014 04/14/2014 Inactive (Appended: Controlled substance eRx refill - RxReferenceNumber: [id number]) alprazolam 0.25 mg tablet RxNorm: 924322 TAKE ONE TABLET BY MOUTH EVERY DAY NEEDED 02/21/2014 03/22/2014 Inactive (Response to an electronic controlled substance refill request - RxReferenceNumber: [id number]) alprazolam 0.25 mg tablet RxNorm: 220652 TAKE ONE TABLET BY MOUTH EVERY DAY NEEDED 02/21/2014 03/22/2014 Inactive (Response to an electronic controlled substance refill request - RxReferenceNumber: [id number]) alprazolam 0.25 mg tablet RxNorm: 710058 TAKE ONE TABLET BY MOUTH EVERY DAY NEEDED 02/18/2014 03/19/2014 Inactive (Response to an electronic controlled substance refill request - RxReferenceNumber: [id number]) Cymbalta 60 mg capsule,delayed release RxNorm: 831608 TAKE ONE CAPSULE BY MOUTH TWICE A DAY 02/18/2014 01/13/2015 Inactive Nexium 40 mg capsule,delayed release RxNorm: 860840 TAKE ONE CAPSULE BY MOUTH EVERY DAY 02/18/2014 01/13/2015 Inactive Bactrim DS 800 mg-160 mg tablet RxNorm: 886841 1 Tablet(s) PO BID 02/13/2014 02/19/2014 Inactive probiotic while one antibiotic Bactrim DS 800 mg-160 mg tablet RxNorm: 814096 1 Tablet(s) PO BID 02/13/2014 02/12/2014 Inactive hydrocodone 10 mg-acetaminophen 325 mg tablet RxNorm: 099887 Tablet(s) PO TAKE ONE TO TWO TABLETS BY MOUTH EVERY 6 HOURS NEEDED FOR PAIN 02/06/2014 03/18/2015 Inactive (Appended: Controlled substance eRx refill - RxReferenceNumber: [id number]) Abilify 2 mg tablet RxNorm: 132269 Tablet(s) PO TAKE ONE TABLET BY MOUTH EVERY NIGHT AT BEDTIME 02/03/2014 03/19/2015 Inactive Duragesic 50 mcg/hr transdermal patch RxNorm: 701128 1 TD q72 hours 01/14/2014 03/23/2014 Inactive alprazolam 0.25 mg tablet RxNorm: 383251 1 Tablet(s) PO QDAY PRN 01/14/2014 02/12/2014 Inactive alprazolam 0.25 mg tablet RxNorm: 981931 Tablet(s) PO TAKE ONE TABLET BY MOUTH EVERY DAY NEEDED 01/14/2014 02/24/2014 Inactive (Appended: Controlled substance eRx refill - RxReferenceNumber: [id number]) Lipitor 10 mg tablet RxNorm: 128168 Tablet(s) PO TAKE ONE TABLET BY MOUTH EVERY DAY 01/14/2014 04/13/2014 Inactive Synthroid 100 mcg tablet RxNorm: 738589 Tablet(s) PO TAKE ONE TABLET BY MOUTH EVERY DAY 2013 03/31/2014 Inactive Fioricet 50 mg-325 mg-40 mg tablet RxNorm: 566737 Tablet(s) PO TAKE ONE TABLET BY MOUTH EVERY 4 HOURS NEEDED FOR PAIN 11/27/2013 09/17/2014 Inactive Fioricet 50 mg-325 mg-40 mg tablet RxNorm: 774524 Tablet(s) PO TAKE ONE TABLET BY MOUTH EVERY 4 HOURS NEEDED FOR PAIN 11/25/2013 11/26/2013 Inactive Zithromax Z-Sergio 250 mg tablet RxNorm: 804079 Tablet(s) PO as directed 11/11/2013 01/13/2014 Inactive Bystolic 10 mg tablet RxNorm: 189369 Tablet(s) PO TAKE ONE TABLET BY MOUTH EVERY DAY 10/21/2013 09/28/2014 Inactive Abilify 2 mg tablet RxNorm: 270210 1 Tablet(s) PO QHS 09/25/2013 01/22/2014 Inactive Synthroid 100 mcg tablet RxNorm: 350632 Tablet(s) PO TAKE ONE TABLET BY MOUTH EVERY DAY 09/24/2013 12/25/2013 Inactive Abilify 2 mg tablet RxNorm: 966378 1 Tablet(s) PO QHS 09/24/2013 09/24/2013 Inactive Rocephin 500 mg solution for injection RxNorm: 338868 1ml Milliliter(s) Inj 09/24/2013 09/24/2013 Inactive Rocephin 500 mg solution for injection RxNorm: 559026 1 Milliliter(s) Inj 09/19/2013 09/19/2013 Inactive Bystolic 5 mg tablet RxNorm: 395948 1 1/2 Tablet(s) PO daily 09/17/2013 03/15/2014 Inactive 1 1/2 daily may have 90 day if cheaper Bystolic 5 mg tablet RxNorm: 947101 1 1/2 Tablet(s) PO daily 09/17/2013 09/16/2013 Inactive 1 1/2 daily Lipitor 10 mg tablet RxNorm: 041507 Tablet(s) PO TAKE ONE TABLET BY MOUTH EVERY DAY 09/12/2013 01/13/2014 Inactive hydrocodone 10 mg-acetaminophen 325 mg tablet RxNorm: 848189 Tablet(s) PO TAKE ONE TO TWO TABLETS BY MOUTH EVERY 6 HOURS NEEDED FOR PAIN 09/09/2013 10/29/2017 Inactive (Appended: Controlled substance eRx refill - RxReferenceNumber: [id number]) hydrocodone 10 mg-acetaminophen 325 mg tablet RxNorm: 832297 1 Tablet(s) PO Q6 PRN 09/09/2013 02/06/2014 Inactive hydrocodone 10 mg-acetaminophen 325 mg tablet RxNorm: 211174 Tablet(s) PO TAKE ONE TO TWO TABLETS BY MOUTH EVERY 6 HOURS NEEDED FOR PAIN 09/06/2013 10/29/2017 Inactive (Appended: Controlled substance eRx refill - RxReferenceNumber: [id number]) Norvasc 10 mg tablet RxNorm: 558852 Tablet(s) PO TAKE ONE TABLET BY MOUTH EVERY DAY 09/05/2013 10/25/2015 Inactive trazodone 50 mg tablet RxNorm: 800869 1 1/2 Tablet(s) PO QHS 09/03/2013 03/17/2014 Inactive 75q hs x 2 week may increase to 100mg if nec after that nystatin 100,000 unit/mL oral suspension RxNorm: 500884 6 Milliliter(s) PO QID 08/06/2013 08/15/2013 Inactive Flonase 50 mcg/actuation nasal spray,suspension RxNorm: 429342 2 Twain NASAL daily 08/06/2013 03/03/2014 Inactive nystatin 100,000 unit/mL oral suspension RxNorm: 812887 6 Unit(s) PO QID 08/05/2013 08/05/2013 Inactive Phenergan with Codeine Syrup RxNorm: 5 Milliliter(s) PO Q4 PRN 08/05/2013 12/02/2013 Inactive 8 ounces alprazolam 0.25 mg tablet RxNorm: 999843 1 Tablet(s) PO QDAY PRN 07/29/2013 01/14/2014 Inactive Diflucan 150 mg tablet RxNorm: 375090 1 Tablet(s) PO daily 07/24/2013 07/26/2013 Inactive hydrochlorothiazide 25 mg tablet RxNorm: 638898 Tablet(s) PO TAKE ONE TABLET BY MOUTH EVERY DAY MUST CALL MD FOR APPOINTMENT 07/19/2013 03/05/2014 Inactive Phenergan with Codeine Syrup RxNorm: 10 Milliliter(s) PO Q4 PRN 07/10/2013 08/04/2013 Inactive 8 ounces Rocephin 500 mg solution for injection RxNorm: 1148405 1 Inj 07/10/2013 07/10/2013 Inactive cefdinir 300 mg capsule RxNorm: 483999 1 Capsule(s) PO BID 07/10/2013 07/16/2013 Inactive prednisone 10 mg tablet RxNorm: 139376 3 Tablet(s) PO daily 07/10/2013 07/14/2013 Inactive Carafate 100 mg/mL oral suspension RxNorm: 600763 10 Milliliter(s) PO Q6 PRN pt to take carafate 10mL every 6 hours as needed. 07/10/2013 08/05/2014 Inactive Kenalog 40 mg/mL suspension for injection RxNorm: 4496632 1 Milliliter(s) Inj 07/10/2013 07/10/2013 Inactive trazodone 50 mg tablet RxNorm: 907096 1 Tablet(s) PO QHS 07/10/2013 09/02/2013 Inactive sulfamethoxazole 800 mg-trimethoprim 160 mg tablet RxNorm: 564794 1 Tablet(s) PO BID 06/03/2013 06/12/2013 Inactive Synthroid 125 mcg tablet RxNorm: 652245 1 Tablet(s) PO daily 05/07/2013 09/23/2013 Inactive Bystolic 10 mg tablet RxNorm: 550103 1.5 Tablet(s) PO daily 05/07/2013 09/03/2013 Inactive Voltaren 1 % Topical Gel RxNorm: 018719 4 Gram(s) TOP QID apply 4 grams to knees, 2 grams to hands and ankles four times daily. 05/07/2013 09/03/2013 Inactive hydrocodone 10 mg-acetaminophen 325 mg tablet RxNorm: 738110 1 Tablet(s) PO Q6 PRN 04/23/2013 09/09/2013 Inactive Norvasc 10 mg tablet RxNorm: 700245 Tablet(s) PO TAKE ONE TABLET BY MOUTH EVERY DAY 04/23/2013 09/04/2013 Inactive alprazolam 0.25 mg tablet RxNorm: 137363 1 Tablet(s) PO QDAY PRN 03/25/2013 07/22/2013 Inactive Bystolic 10 mg tablet RxNorm: 842893 1 Tablet(s) PO daily TAKE ONE TABLET BY MOUTH EVERY DAY 03/25/2013 05/06/2013 Inactive zolpidem 10 mg tablet RxNorm: 475601 1 Tablet(s) PO HS PRN 03/25/2013 07/09/2013 Inactive gentamicin 0.3 % Eye Drops RxNorm: 771937 3 Drop(s) OPH QID three gtts to each eye QID x 7 days 03/11/2013 03/10/2013 Inactive gentamicin 0.3 % eye drops RxNorm: 375723 3 Drop(s) OPH QID three gtts to each eye QID x 7 days 03/11/2013 03/17/2013 Inactive Nexium 40 mg capsule,delayed release RxNorm: 185994 Capsule(s) PO TAKE ONE CAPSULE BY MOUTH EVERY DAY 02/15/2013 02/17/2014 Inactive Cymbalta 60 mg capsule,delayed release RxNorm: 419666 Capsule(s) PO TAKE ONE CAPSULE BY MOUTH TWICE A DAY 02/15/2013 02/17/2014 Inactive hydrocodone 10 mg-acetaminophen 325 mg tablet RxNorm: 7226874 1 Tablet(s) PO Q6 PRN 01/22/2013 04/22/2013 Inactive Lipitor 10 mg tablet RxNorm: 326636 Tablet(s) PO TAKE ONE TABLET BY MOUTH EVERY DAY 01/07/2013 09/11/2013 Inactive Cymbalta 60 mg capsule,delayed release RxNorm: 718536 Capsule(s) PO TAKE ONE CAPSULE BY MOUTH TWICE A DAY 01/02/2013 02/14/2013 Inactive Synthroid 100 mcg tablet RxNorm: 310965 1 Tablet(s) PO 12/03/2012 05/06/2013 Inactive Enablex 7.5 mg tablet,extended release RxNorm: 745795 1 Tablet(s) PO daily 11/28/2012 11/27/2012 Inactive Enablex 7.5 mg tablet,extended release RxNorm: 476958 1 Tablet(s) PO daily 11/28/2012 11/28/2012 Inactive scopolamine 1.5 mg 72 hr Transderm Patch RxNorm: 389889 1 Milligram(s) TD q72 hours 11/26/2012 05/06/2013 Inactive hydrochlorothiazide 25 mg tablet RxNorm: 018649 Tablet(s) PO TAKE ONE TABLET BY MOUTH EVERY DAY MUST CALL MD FOR APPOINTMENT 11/24/2012 07/18/2013 Inactive Cymbalta 60 mg capsule,delayed release RxNorm: 934431 Capsule(s) PO TAKE ONE CAPSULE BY MOUTH TWICE A DAY 10/26/2012 01/01/2013 Inactive Bystolic 10 mg tablet RxNorm: 198780 Tablet(s) PO TAKE ONE TABLET BY MOUTH EVERY DAY 10/12/2012 03/25/2013 Inactive zolpidem 10 mg tablet RxNorm: 969278 1 Tablet(s) PO HS PRN 10/02/2012 01/29/2013 Inactive alprazolam 0.25 mg tablet RxNorm: 237521 1 Tablet(s) PO QDAY PRN 10/02/2012 01/29/2013 Inactive Kenalog 40 mg/mL Susp for Injection RxNorm: 7704947 1 Milliliter(s) Inj 09/24/2012 09/24/2012 Inactive Diflucan 150 mg tablet RxNorm: 163911 1 Tablet(s) PO daily 09/24/2012 09/30/2012 Inactive acyclovir 400 mg tablet RxNorm: 162398 1 Tablet(s) PO QID 09/24/2012 10/08/2012 Inactive Cipro 500 mg tablet RxNorm: 283958 1 Tablet(s) PO BID 09/24/2012 09/30/2012 Inactive Tamiflu 75 mg capsule RxNorm: 145310 1 Capsule(s) PO BID 09/17/2012 09/16/2012 Inactive Tamiflu 75 mg capsule RxNorm: 049087 1 Capsule(s) PO BID 09/17/2012 09/16/2012 Inactive Tamiflu 75 mg capsule RxNorm: 201629 1 Capsule(s) PO BID please disregard order for #14 09/17/2012 09/21/2012 Inactive fluconazole 150 mg tablet RxNorm: 035012 1 Tablet(s) PO daily 09/10/2012 09/13/2012 Inactive ketoconazole 2 % Topical Cream RxNorm: 490610 Application TOP BID apply to affected area BID until gone 08/31/2012 11/01/2017 Inactive Norvasc 10 mg tablet RxNorm: 192264 Tablet(s) PO TAKE ONE TABLET BY MOUTH EVERY DAY 08/29/2012 04/22/2013 Inactive Cipro 500 mg tablet RxNorm: 739536 1 Tablet(s) PO BID 08/17/2012 08/26/2012 Inactive Flagyl 500 mg tablet RxNorm: 028147 1 Tablet(s) PO TID 08/17/2012 08/23/2012 Inactive Cipro 500 mg tablet RxNorm: 369418 1 Tablet(s) PO BID 08/17/2012 08/16/2012 Inactive zolpidem 10 mg tablet RxNorm: 495991 1 Tablet(s) PO HS PRN 08/17/2012 09/15/2012 Inactive Flagyl 500 mg tablet RxNorm: 468089 1 Tablet(s) PO TID 08/17/2012 08/16/2012 Inactive alprazolam 0.25 mg tablet RxNorm: 756699 1 Tablet(s) PO QDAY PRN 08/17/2012 09/15/2012 Inactive Belle Allergy 180 mg tablet RxNorm: 620119 1 Tablet(s) PO daily 08/08/2012 02/03/2013 Inactive hydrochlorothiazide 25 mg tablet RxNorm: 910648 1/2 Tablet(s) PO daily 08/08/2012 11/05/2012 Inactive needs appt Carafate 1 gram tablet RxNorm: 739509 1 Tablet(s) PO QID mix with 10 cc water and dissolve into slurry 08/08/2012 08/21/2012 Inactive hydrocodone 10 mg-acetaminophen 325 mg tablet RxNorm: 2899080 1 Tablet(s) PO Q6 PRN 08/08/2012 01/21/2013 Inactive Synthroid 100 mcg tablet RxNorm: 705403 1 Tablet(s) PO 08/08/2012 12/02/2012 Inactive Cymbalta 60 mg capsule,delayed release RxNorm: 099828 Capsule(s) PO 07/23/2012 10/25/2012 Inactive TAKE ONE CAPSULE BY MOUTH TWICE A DAY Nexium 40 mg capsule,delayed release RxNorm: 355210 Capsule(s) PO 06/20/2012 02/14/2013 Inactive TAKE ONE CAPSULE BY MOUTH EVERY DAY Lipitor 10 mg tablet RxNorm: 368994 Tablet(s) PO 06/20/2012 01/06/2013 Inactive TAKE ONE TABLET BY MOUTH EVERY DAY hydrochlorothiazide 25 mg tablet RxNorm: 269742 1 Tablet(s) PO daily 06/19/2012 08/07/2012 Inactive needs appt alprazolam 0.25 mg tablet RxNorm: 188195 1 Tablet(s) PO QDAY PRN 06/05/2012 07/04/2012 Inactive zolpidem 10 mg tablet RxNorm: 719457 1 Tablet(s) PO HS PRN 06/05/2012 07/04/2012 Inactive zolpidem 10 mg tablet RxNorm: 245277 1 Tablet(s) PO HS PRN 04/16/2012 05/15/2012 Inactive alprazolam 0.25 mg tablet RxNorm: 407968 1 Tablet(s) PO QDAY PRN 04/16/2012 05/15/2012 Inactive Cymbalta 60 mg capsule,delayed release RxNorm: 798577 1 Capsule(s) PO BID 03/22/2012 07/19/2012 Inactive Fioricet 50 mg-325 mg-40 mg tablet RxNorm: 171383 1 Tablet(s) PO Q4 PRN 03/22/2012 11/24/2013 Inactive Bystolic 10 mg tablet RxNorm: 753317 Tablet(s) PO 03/22/2012 10/11/2012 Inactive TAKE ONE TABLET BY MOUTH EVERY DAY potassium chloride ER 10 mEq Tab RxNorm: 928708 1 Tablet(s) PO daily 02/24/2012 03/01/2012 Inactive Lasix 20 mg Tab RxNorm: 135384 1 Tablet(s) PO daily 02/22/2012 02/21/2012 Inactive KCL 10 meq RxNorm: 1 PO daily 02/22/2012 02/21/2012 Inactive potassium chloride ER 10 mEq Tab RxNorm: 109369 1 Tablet(s) PO daily 02/22/2012 02/21/2012 Inactive Lasix 20 mg Tab RxNorm: 246194 1 Tablet(s) PO daily 02/22/2012 02/28/2012 Inactive KCL 10 meq RxNorm: 1 PO daily 02/22/2012 02/22/2012 Inactive potassium chloride ER 10 mEq Tab RxNorm: 916095 1 Tablet(s) PO daily 02/22/2012 02/23/2012 Inactive Rocephin 500 mg Solution for Injection RxNorm: 3889160 Inj 02/15/2012 02/15/2012 Inactive Nexium 40 mg capsule,delayed release RxNorm: 986377 1 Capsule(s) PO daily 02/15/2012 No Stop Date Active Bystolic 10 mg Tab RxNorm: 645027 1 Tablet(s) PO daily 02/15/2012 08/12/2012 Inactive alprazolam 0.25 mg tablet RxNorm: 730943 1 Tablet(s) PO QDAY PRN 01/31/2012 02/29/2012 Inactive zolpidem 10 mg tablet RxNorm: 418453 1 Tablet(s) PO HS PRN 01/31/2012 02/29/2012 Inactive alprazolam 0.25 mg Tab RxNorm: 031978 1 Tablet(s) PO QDAY PRN 12/16/2011 01/14/2012 Inactive zolpidem 10 mg Tab RxNorm: 162008 1 Tablet(s) PO HS PRN 12/16/2011 01/14/2012 Inactive Norvasc 10 mg tablet RxNorm: 582188 1 Tablet(s) PO daily 12/02/2011 02/21/2012 Inactive Lipitor 10 mg tablet RxNorm: 561547 1 Tablet(s) PO daily 11/16/2011 05/13/2012 Inactive zolpidem 10 mg Tab RxNorm: 778303 1 Tablet(s) PO HS PRN 10/26/2011 12/15/2011 Inactive alprazolam 0.25 mg Tab RxNorm: 835504 1 Tablet(s) PO QDAY PRN 10/26/2011 12/15/2011 Inactive hydrochlorothiazide 25 mg tablet RxNorm: 208687 1 Tablet(s) PO daily 09/05/2011 03/02/2012 Inactive Synthroid 75 mcg tablet RxNorm: 838760 1 Tablet(s) PO daily 08/01/2011 02/26/2012 Inactive Abilify 2 mg Tab RxNorm: 828857 1 Tablet(s) PO QHS 08/01/2011 09/10/2012 Inactive dicyclomine 10 mg Cap RxNorm: 875212 1 Capsule(s) PO TID 08/01/2011 10/29/2011 Inactive alprazolam 0.25 mg Tab RxNorm: 031616 1 Tablet(s) PO QDAY PRN 07/26/2011 10/25/2011 Inactive Fioricet 50 mg-325 mg-40 mg tablet RxNorm: 157328 1 Tablet(s) PO Q4 PRN 07/14/2011 03/21/2012 Inactive Rocephin 500 mg Solution for Injection RxNorm: 3278006 1 Milliliter(s) Inj 07/14/2011 08/01/2011 Inactive Nexium 40 mg Capsule, delayed release RxNorm: 754425 1 Capsule(s) PO daily 05/23/2011 10/06/2011 Inactive Bystolic 10 mg tablet RxNorm: 134078 1 Tablet(s) PO daily 05/23/2011 11/18/2011 Inactive Bystolic 10 mg Tab RxNorm: 329862 1 Tablet(s) PO daily 05/23/2011 05/22/2011 Inactive alprazolam 0.25 mg Tab RxNorm: 368597 1 Tablet(s) PO QDAY PRN 05/23/2011 07/25/2011 Inactive Influenza Virus Vaccine 0.5 mL RxNorm: IM 05/23/2011 05/23/2011 Inactive zolpidem 10 mg Tab RxNorm: 381704 1 Tablet(s) PO HS PRN 05/23/2011 10/25/2011 Inactive Rocephin 500 mg Solution for Injection RxNorm: 8038566 1 Milliliter(s) Inj 05/03/2011 07/14/2011 Inactive Kenalog 40 mg/mL Susp for Injection RxNorm: 5243524 1 Milliliter(s) Inj 05/03/2011 07/14/2011 Inactive Bactrim DS 800 mg-160 mg Tab RxNorm: 445160 1 Tablet(s) PO BID 05/03/2011 08/01/2011 Inactive Bystolic 10 mg tablet RxNorm: 437228 1 Tablet(s) PO daily No Start Date Active Flonase 50 mcg/actuation nasal spray,suspension RxNorm: 3966820 2 [place] NASAL daily No Start Date 08/05/2013 Inactive Levaquin 500 mg tablet RxNorm: 740012 Tablet(s) PO No Start Date 04/19/2017 Inactive Duragesic 50 mcg/hr transdermal patch RxNorm: 317196 1 TD q72 hours No Start Date 01/13/2014 Inactive Vesicare 5 mg tablet RxNorm: 034627 1 Tablet(s) PO daily No Start Date 01/06/2015 Inactive Celebrex 200 mg capsule RxNorm: 909322 1 Capsule(s) PO daily No Start Date 04/02/2014 Inactive zolpidem 10 mg Tab RxNorm: 105896 1 Tablet(s) PO HS PRN No Start Date 05/22/2011 Inactive Zyrtec 10 mg Tab RxNorm: 0404599 1 Tablet(s) PO daily No Start Date 08/08/2012 Inactive Flonase 50 mcg/actuation nasal spray,suspension RxNorm: 9395657 1 [place] NASAL daily No Start Date 11/07/2017 Inactive 1 spray to each nostril daily Nexium 40 mg Cap RxNorm: 186089 1 Capsule(s) PO daily No Start Date 05/22/2011 Inactive ketoconazole 2 % Topical Cream RxNorm: 461189 Application TOP BID apply to affected area BID until gone No Start Date 08/30/2012 Inactive aspirin 81 mg tablet RxNorm: 248186 1 Tablet(s) PO daily No Start Date 11/13/2017 Inactive Cymbalta 60 mg capsule,delayed release RxNorm: 250364 1 Capsule(s) PO BID No Start Date 03/21/2012 Inactive alprazolam 0.25 mg Tab RxNorm: 394589 1 Tablet(s) PO QDAY PRN No Start Date 05/22/2011 Inactive baclofen 10 mg tablet RxNorm: 922906 1 Tablet(s) PO TID as needed muscle spasms No Start Date 11/14/2017 Inactive Toprol XL 100 mg 24 hr Tab RxNorm: 344522 1 Tablet(s) PO BID No Start Date 04/25/2011 Inactive Xanax 0.25 mg tablet RxNorm: 707941 1 Tablet(s) PO daily as needed No Start Date 12/27/2015 Inactive Bystolic 10 mg Tab RxNorm: 281784 1 Tablet(s) PO daily No Start Date 05/22/2011 Inactive Fioricet 50 mg-325 mg-40 mg Tab RxNorm: 841014 1 Tablet(s) PO Q4 PRN No Start Date 07/13/2011 Inactive albuterol sulfate HFA 90 mcg/Actuation Aerosol Inhaler RxNorm: 1928281 1 INH Q4 PRN No Start Date 01/06/2015 Inactive Imitrex 50 mg tablet RxNorm: 230236 1 Tablet(s) PO Q8 as needed may repeat x1 dose in 1 hour of inital dose. No Start Date 02/24/2016 Inactive dc fioricet Tessalon 200 mg Cap RxNorm: 168657 1 Capsule(s) PO Q4 PRN No Start Date 02/14/2012 Inactive Zithromax Z-Sergio 250 mg tablet RxNorm: 410914 Tablet(s) PO No Start Date 11/10/2013 Inactive hydrochlorothiazide 25 mg Tab RxNorm: 174822 1 Tablet(s) PO daily No Start Date 09/04/2011 Inactive Fish Oil 1,000 mg Cap RxNorm: 1 Capsule(s) PO TID No Start Date 11/08/2017 Inactive Deplin 15 mg Tab RxNorm: 1 Tablet(s) PO daily No Start Date 08/01/2011 Inactive Brilinta 90 mg tablet RxNorm: 0467073 1 Tablet(s) PO BID No Start Date 11/23/2015 Inactive Synthroid 75 mcg Tab RxNorm: 076900 1 Tablet(s) PO daily No Start Date 07/31/2011 Inactive ciprofloxacin 0.3 % eye drops RxNorm: 966569 2 Drop(s) ophthalmic (eye) Q2H while awake x 2 days, then Q4H x 5 days No Start Date 11/22/2017 Inactive scopolamine 1.5 mg 72 hr Transderm Patch RxNorm: 252115 1 Milligram(s) TD q72 hours No Start Date 11/25/2012 Inactive hydrocodone-acetaminophen 10 mg-325 mg tablet RxNorm: 7813459 1 Tablet(s) PO Q6 PRN No Start Date 08/07/2012 Inactive Phenergan with Codeine Syrup RxNorm: 5-10 Milliliter(s) PO Q6 PRN No Start Date 02/14/2012 Inactive Norvasc 10 mg Tab RxNorm: 398064 1 Tablet(s) PO daily No Start Date 12/01/2011 Inactive Zithromax Z-Sergio 250 mg Tab RxNorm: 890441 Tablet(s) PO No Start Date 08/01/2011 Inactive Medication Administered Medication Codes Instructions Start Date Status ceftriaxone 1 gram solution for injection RxNorm: 0603163 02/20/2019 No longer Active ceftriaxone 500 mg solution for injection RxNorm: 0892474 05/28/2018 No longer Active Kenalog 40 mg/mL suspension for injection RxNorm: 3479597 Milliliter 05/28/2018 No longer Active ceftriaxone 500 mg solution for injection RxNorm: 2533407 500Milligram 01/19/2018 No longer Active Kenalog 40 mg/mL suspension for injection RxNorm: 6185705 1Milliliter 01/19/2018 No longer Active Kenalog 40 mg/mL suspension for injection RxNorm: 6078904 1Milliliter 06/27/2017 No longer Active Kenalog 40 mg/mL suspension for injection RxNorm: 3313059 Milliliter 04/20/2017 No longer Active Kenalog 40 mg/mL suspension for injection RxNorm: 1934477 1Milliliter 03/14/2017 No longer Active ceftriaxone 500 mg solution for injection RxNorm: 3464949 1Milliliter 11/28/2016 No longer Active Kenalog 40 mg/mL suspension for injection RxNorm: 8038103 Milliliter 11/07/2016 No longer Active ceftriaxone 500 mg solution for injection RxNorm: 2091415 11/07/2016 No longer Active ceftriaxone 500 mg solution for injection RxNorm: 2532468 12/07/2015 No longer Active Kenalog 40 mg/mL suspension for injection RxNorm: 9886996 1Milliliter 11/24/2015 No longer Active ceftriaxone 500 mg solution for injection RxNorm: 3620425 Milliliter 11/24/2015 No longer Active promethazine 25 mg/mL injection solution RxNorm: 377320 Milliliter 08/27/2015 No longer Active ketorolac 60 mg/2 mL intramuscular solution RxNorm: 275053 Milliliter 08/27/2015 No longer Active Kenalog 40 mg/mL suspension for injection RxNorm: 8810177 Milliliter 08/10/2015 No longer Active ceftriaxone 500 mg solution for injection RxNorm: 8955977 08/10/2015 No longer Active ceftriaxone 500 mg solution for injection RxNorm: 5483864 1Milliliter 07/28/2015 No longer Active Kenalog 40 mg/mL suspension for injection RxNorm: 0714583 Milliliter 03/19/2015 No longer Active Kenalog 40 mg/mL suspension for injection RxNorm: 9037256 Milliliter 06/23/2014 No longer Active ceftriaxone 500 mg solution for injection RxNorm: 303250 06/23/2014 No longer Active Rocephin 500 mg solution for injection RxNorm: 676054 1mlMilliliter 09/24/2013 No longer Active Rocephin 500 mg solution for injection RxNorm: 156587 1Milliliter 09/19/2013 No longer Active Rocephin 500 mg solution for injection RxNorm: 7963182 1 07/10/2013 No longer Active Kenalog 40 mg/mL suspension for injection RxNorm: 2943698 1Milliliter 07/10/2013 No longer Active Kenalog 40 mg/mL Susp for Injection RxNorm: 9583982 1Milliliter 09/24/2012 No longer Active Rocephin 500 mg Solution for Injection RxNorm: 9793517 02/15/2012 No longer Active Influenza Virus Vaccine [...] (3rd IS) 4.03 uIU/mL 02/15/2019 Free T4 Hgt057 FREE T4 0.71 ng/dL 02/15/2019 Lipid Ord30 CHOL 193 mg/dL 01/01/2019 Lipid Ord30 HDL 45.0 mg/dl 01/01/2019 Lipid Ord30 TRIG 111 mg/dL 01/01/2019 Lipid Ord30 LDL 126 mg/dL 01/01/2019 Lipid Ord30 C/HDL 4.3 Ratio 01/01/2019 Comp Metabolic Skq596 NA 140 mEq/L 01/01/2019 Comp Metabolic Duo806 K 3.8 mEq/L 01/01/2019 Comp Metabolic Lid681 CL 103 mEq/L 01/01/2019 Comp Metabolic Gjw358 CO2 28.0 mEq/L 01/01/2019 Comp Metabolic Gcr287 ANION GAP 13 01/01/2019 Comp Metabolic Cyr336 GLUCOSE 93 mg/dL 01/01/2019 Comp Metabolic Czm803 Creat 0.7 mg/dL 01/01/2019 Comp Metabolic Wik220 eGFR 86 ml/min/1.73m2 01/01/2019 Comp Metabolic Qch702 BUN 21 mg/dL 01/01/2019 Comp Metabolic Jim927 B/C Ratio 29.6 Ratio 01/01/2019 Comp Metabolic Kot568 CALCIUM 9.4 mg/dL 01/01/2019 Comp Metabolic Qbf906 ALK PHOS 67 U/L 01/01/2019 Comp Metabolic Tak927 AST(SGOT) 27 U/L 01/01/2019 Comp Metabolic Tub602 ALT(SGPT) 30 U/L 01/01/2019 Comp Metabolic Cst754 BILI T 0.5 mg/dL 01/01/2019 Comp Metabolic Bxw162 ALBUMIN 4.0 g/dL 01/01/2019 Comp Metabolic Byz931 TPRO 6.8 g/dL 01/01/2019 Comp Metabolic Ohj405 GLOB 2.8 g/dL 01/01/2019 Comp Metabolic Jlc091 A/G Ratio 1.4 Ratio 01/01/2019 Comp Metabolic Yei533 Osmo 282 mOsmo 01/01/2019 Free T4 Gtx300 FREE T4 0.71 ng/dL 10/31/2018 Tsh Ord6 TSH (3rd IS) 7.87 uIU/mL 10/31/2018 Lipid Ord30 CHOL 170 mg/dL 10/31/2018 Lipid Ord30 HDL 53.0 mg/dl 10/31/2018 Lipid Ord30 TRIG 85 mg/dL 10/31/2018 Lipid Ord30 LDL 100 mg/dL 10/31/2018 Lipid Ord30 C/HDL 3.2 Ratio 10/31/2018 Comp Metabolic Jgy236 NA 142 mEq/L 10/31/2018 Comp Metabolic Wby134 K 4.0 mEq/L 10/31/2018 Comp Metabolic Pxl647 CL 106 mEq/L 10/31/2018 Comp Metabolic Eew903 CO2 27.0 mEq/L 10/31/2018 Comp Metabolic Wmu803 ANION GAP 13 10/31/2018 Comp Metabolic Gtx421 GLUCOSE 114 mg/dL 10/31/2018 Comp Metabolic Leg189 Creat 0.7 mg/dL 10/31/2018 Comp Metabolic Svn925 eGFR 90 ml/min/1.73m2 10/31/2018 Comp Metabolic Cxi971 BUN 21 mg/dL 10/31/2018 Comp Metabolic Dyc705 B/C Ratio 30.9 Ratio 10/31/2018 Comp Metabolic Hit230 CALCIUM 9.7 mg/dL 10/31/2018 Comp Metabolic Mge599 ALK PHOS 63 U/L 10/31/2018 Comp Metabolic Zeo174 AST(SGOT) 24 U/L 10/31/2018 Comp Metabolic Ska641 ALT(SGPT) 21 U/L 10/31/2018 Comp Metabolic Yww047 BILI T 0.6 mg/dL 10/31/2018 Comp Metabolic Tdp947 ALBUMIN 4.1 g/dL 10/31/2018 Comp Metabolic Lbw093 TPRO 6.6 g/dL 10/31/2018 Comp Metabolic Gej006 GLOB 2.5 g/dL 10/31/2018 Comp Metabolic Unb667 A/G Ratio 1.7 Ratio 10/31/2018 Comp Metabolic Kqa937 Osmo 287 mOsmo 10/31/2018 Cbc With Differential [...] 30.9 pg 10/31/2018 Cbc With Differential Ord2 [place]% 8.0 % 10/31/2018 Cbc With Differential Ord2 [...] 1.88 K/ul 10/31/2018 Cbc With Differential Ord2 [place] ABS# 0.6 K/ul 10/31/2018 Cbc With Differential Ord2 Eos ABS# 0.5 K/ul 10/31/2018 Cbc With Differential Ord2 Baso ABS# 0.1 K/ul 10/31/2018 Comp Metabolic Wfu777 NA 141 mEq/L 09/12/2017 Comp Metabolic Atq734 K 4.1 mEq/L 09/12/2017 Comp Metabolic Lnj885 CL 105 mEq/L 09/12/2017 Comp Metabolic Ruu155 CO2 30.0 mEq/L 09/12/2017 Comp Metabolic Srl360 ANION GAP 10 09/12/2017 Comp Metabolic Lcl576 GLUCOSE 97 mg/dL 09/12/2017 Comp Metabolic Rxs095 Creat 0.7 mg/dL 09/12/2017 Comp Metabolic Qps232 eGFR 91 ml/min/1.73m2 09/12/2017 Comp Metabolic Bro268 BUN 18 mg/dL 09/12/2017 Comp Metabolic Ukn915 B/C Ratio 26.5 Ratio 09/12/2017 Comp Metabolic Dzg580 CALCIUM 9.7 mg/dL 09/12/2017 Comp Metabolic Yvp647 ALK PHOS 60 U/L 09/12/2017 Comp Metabolic Foy318 AST(SGOT) 22 U/L 09/12/2017 Comp Metabolic Omj554 ALT(SGPT) 23 U/L 09/12/2017 Comp Metabolic Dez259 BILI T 0.4 mg/dL 09/12/2017 Comp Metabolic Cdk274 ALBUMIN 3.8 g/dL 09/12/2017 Comp Metabolic Njc070 TPRO 6.4 g/dL 09/12/2017 Comp Metabolic Iyy971 GLOB 2.6 g/dL 09/12/2017 Comp Metabolic Rud482 A/G Ratio 1.5 Ratio 09/12/2017 Comp Metabolic Qqb066 Osmo 283 mOsmo 09/12/2017 Cbc With Differential [...] 30.7 pg 09/12/2017 Cbc With Differential Ord2 [place]% 7.2 % 09/12/2017 Cbc With Differential Ord2 [...] 2.46 K/ul 09/12/2017 Cbc With Differential Ord2 [place] ABS# 0.6 K/ul 09/12/2017 Cbc With Differential [...] 31.4 pg 11/07/2016 Cbc With Differential Ord2 [place]% 6.1 % 11/07/2016 Cbc With Differential Ord2 [...] 2.48 K/ul 11/07/2016 Cbc With Differential Ord2 [place] ABS# 0.6 K/ul 11/07/2016 Cbc With Differential Ord2 Eos ABS# 0.3 K/ul 11/07/2016 Cbc With Differential Ord2 Baso ABS# 0.1 K/ul 11/07/2016 Comp Metabolic Pwu774 NA 139 mEq/L 11/07/2016 Comp Metabolic Mfs321 K 3.8 mEq/L 11/07/2016 Comp Metabolic Bfe604 CL 106 mEq/L 11/07/2016 Comp Metabolic Hvb933 CO2 25.0 mEq/L 11/07/2016 Comp Metabolic Pnk157 ANION GAP 12 11/07/2016 Comp Metabolic Gkl805 GLUCOSE 98 mg/dL 11/07/2016 Comp Metabolic Ent771 Creat 0.8 mg/dL 11/07/2016 Comp Metabolic Dcb781 eGFR 71 ml/min/1.73m2 11/07/2016 Comp Metabolic Teo332 BUN 36 mg/dL 11/07/2016 Comp Metabolic Dcm688 B/C Ratio 42.9 Ratio 11/07/2016 Comp Metabolic Mfc627 CALCIUM 9.9 mg/dL 11/07/2016 Comp Metabolic Roy663 ALK PHOS 57 U/L 11/07/2016 Comp Metabolic Eyy348 AST(SGOT) 24 U/L 11/07/2016 Comp Metabolic Rse253 ALT(SGPT) 28 U/L 11/07/2016 Comp Metabolic Log716 BILI T 0.4 mg/dL 11/07/2016 Comp Metabolic Wtp772 ALBUMIN 4.2 g/dL 11/07/2016 Comp Metabolic Lvo471 TPRO 7.0 g/dL 11/07/2016 Comp Metabolic Pwc009 GLOB 2.8 g/dL 11/07/2016 Comp Metabolic Mtv887 A/G Ratio 1.5 Ratio 11/07/2016 Comp Metabolic Ysp349 Osmo 286 mOsmo 11/07/2016 Free T4 Yvc669 FREE T4 0.75 ng/dL 11/07/2016 Tsh Ord6 hTSH II 3.46 uIU/mL 11/07/2016 Comp Metabolic Uby075 NA 138 mEq/L 05/10/2016 Comp Metabolic Xwd413 K 3.8 mEq/L 05/10/2016 Comp Metabolic Xwm941 CL 102 mEq/L 05/10/2016 Comp Metabolic Iub399 CO2 29.0 mEq/L 05/10/2016 Comp Metabolic Ete864 ANION GAP 11 05/10/2016 Comp Metabolic Rhr349 GLUCOSE 107 mg/dL 05/10/2016 Comp Metabolic Ohr535 Creat 0.7 mg/dL 05/10/2016 Comp Metabolic Zco431 eGFR 93 ml/min/1.73m2 05/10/2016 Comp Metabolic Jka639 BUN 18 mg/dL 05/10/2016 Comp Metabolic Rhm349 B/C Ratio 26.9 Ratio 05/10/2016 Comp Metabolic Fug212 CALCIUM 9.8 mg/dL 05/10/2016 Comp Metabolic Wqj896 ALK PHOS 60 U/L 05/10/2016 Comp Metabolic Ges858 AST(SGOT) 21 U/L 05/10/2016 Comp Metabolic Jvk712 ALT(SGPT) 23 U/L 05/10/2016 Comp Metabolic Hhi834 BILI T 0.5 mg/dL 05/10/2016 Comp Metabolic Yzy602 ALBUMIN 4.1 g/dL 05/10/2016 Comp Metabolic Khs253 TPRO 6.7 g/dL 05/10/2016 Comp Metabolic Dyi726 GLOB 2.7 g/dL 05/10/2016 Comp Metabolic Nal911 A/G Ratio 1.5 Ratio 05/10/2016 Comp Metabolic Bmr388 Osmo 278 mOsmo 05/10/2016 Lipid Ord30 CHOL 169 mg/dL 05/10/2016 Lipid Ord30 HDL 50.0 mg/dl 05/10/2016 Lipid Ord30 TRIG 161 mg/dL 05/10/2016 Lipid Ord30 LDL 87 mg/dL 05/10/2016 Lipid Ord30 C/HDL 3.4 Ratio 05/10/[address] NA 137 mEq/L 06/12/2015 Comp Metabolic Hil582 K 3.8 mEq/L 06/12/2015 Comp Metabolic Mag600 CL 104 mEq/L 06/12/2015 Comp Metabolic Ceh474 CO2 24.0 mEq/L 06/12/2015 Comp Metabolic Yvm050 ANION GAP 13 06/12/2015 Comp Metabolic Lwk304 GLUCOSE 92 mg/dL 06/12/2015 Comp Metabolic Vpt945 Creat 0.7 mg/dL 06/12/2015 Comp Metabolic Mtx573 eGFR 87 ml/min/1.73m2 06/12/2015 Comp Metabolic Lon806 BUN 31 mg/dL 06/12/2015 Comp Metabolic Aax716 B/C Ratio 43.7 Ratio 06/12/2015 Comp Metabolic Tke085 CALCIUM 10.0 mg/dL 06/12/2015 Comp Metabolic Bku214 ALK PHOS 58 U/L 06/12/2015 Comp Metabolic Wfc348 AST(SGOT) 32 U/L 06/12/2015 Comp Metabolic Jkc561 ALT(SGPT) 33 U/L 06/12/2015 Comp Metabolic Kmk477 BILI T 0.5 mg/dL 06/12/2015 Comp Metabolic Syr141 ALBUMIN 4.1 g/dL 06/12/2015 Comp Metabolic Wrn697 TPRO 6.6 g/dL 06/12/2015 Comp Metabolic Fjo524 GLOB 2.5 g/dL 06/12/2015 Comp Metabolic Lzq681 A/G Ratio 1.6 Ratio 06/12/2015 Comp Metabolic Dzg704 Osmo 280 mOsmo 06/12/2015 Cbc With Differential [...] Differential Ord2 RDW 14.2 % 06/12/2015 CBC 7921618 WBC 8.7 10e9/L 04/30/2013 CBC 9176201 RBC 4.63 10e12/L 04/30/2013 CBC 5006159 HGB 14.1 g/dL 04/30/2013 CBC 7292258 HCT DET 42.2 % 04/30/2013 CBC 9517733 MCV 91.1 fL 04/30/2013 CBC 2413453 MCH 30.5 pg 04/30/2013 CBC 3933683 MCHC 33.4 g/dL 04/30/2013 CBC 0176872 PLT 248 10e9/L 04/30/2013 CBC 9572747 MPV 12.1 fL 04/30/2013 CBC 1020947 LARA % 59.0 % 04/30/2013 CBC 7306223 LY % 27.6 % 04/30/2013 CBC 2328832 MON % 8.0 % 04/30/2013 CBC 3437036 EOS % 4.8 % 04/30/2013 CBC 2873336 BASO % 0.6 % 04/30/2013 CBC 7574244 RDW 13.3 % 04/30/2013 CBC 3093342 ABS LARA 5.13 10e9/L 04/30/2013 CBC 0229639 ABS LYMPH 2.40 10e9/L 04/30/2013 CBC 8850718 ABS MONO 0.70 10e9/L 04/30/2013 CBC 4066399 ABS EOS 0.42 10e9/L 04/30/2013 CBC 0603718 ABS BASO 0.05 10e9/L 04/30/2013 CBC 8315779 RDW-SD 43.1 fL 04/30/2013 TSH 2364669 TSH 4.339 uIU/ML 04/30/2013 A1C HPLC 5943864 A1C HPLC 43401-8 5.6 % 04/30/2013 FREE T4 1606851 FREE T4 0.84 NG/DL 04/30/2013 GFR CALC 0934297 GFR AA >60 ML/MIN 04/30/2013 GFR CALC 0298275 GFR NON-AA >60 ML/MIN 04/30/2013 CHEM 14 1624181 AST 22 U/L 04/30/2013 CHEM 14 4424059 ALT 22 IU/L 04/30/2013 CHEM 14 2800058 BUN 24 MG/DL 04/30/2013 CHEM 14 7094324 ALBUMIN 4.2 GM/DL 04/30/2013 CHEM 14 3267752 CHLORIDE 107 MMOL/L 04/30/2013 CHEM 14 6283299 BILI TOT 0.3 MG/DL 04/30/2013 CHEM 14 0256369 ALK PHOS 88 U/L 04/30/2013 CHEM 14 1208754 SODIUM 141 MMOL/L 04/30/2013 CHEM 14 1992449 CREATININE 0.60 MG/DL 04/30/2013 CHEM 14 6896658 CALCIUM 9.9 MG/DL 04/30/2013 CHEM 14 3120078 POTASSIUM 3.7 MMOL/L 04/30/2013 CHEM 14 2855005 PROT TOT 6.6 GM/DL 04/30/2013 CHEM 14 8930789 GLUCOSE 123 MG/DL 04/30/2013 CHEM 14 8491500 BICARB 25 MMOL/L 04/30/2013 CHEM 14 1482132 ANION GAP 9 MEQ/L 04/30/2013 LIPID GRP HDL TEST 46 MG/DL 04/30/2013 LIPID GRP TRIG 148 MG/DL 04/30/2013 LIPID GRP TEST LDL 75 MG/DL 04/30/2013 LIPID GRP CHOL 151 MG/DL 04/30/2013 LIPID GRP RCHOL/HDL 3.28 RATIO 04/30/2013 TSH 6822144 TSH 3.341 uIU/ML 11/29/2012 CBC 5780237 WBC 8.4 10e9/L 11/29/2012 CBC 0541367 RBC 4.77 10e12/L 11/29/2012 CBC 5662470 HGB 14.9 g/dL 11/29/2012 CBC 3451297 HCT DET 44.2 % 11/29/2012 CBC 5559598 MCV 92.7 fL 11/29/2012 CBC 1256748 MCH 31.2 pg 11/29/2012 CBC 4749354 MCHC 33.7 g/dL 11/29/2012 CBC 0051433 PLT 253 10e9/L 11/29/2012 CBC 0807236 MPV 11.8 fL 11/29/2012 CBC 4162264 LARA % 54.9 % 11/29/2012 CBC 1955883 LY % 29.0 % 11/29/2012 CBC 0651682 MON % 10.4 % 11/29/2012 CBC 5507096 EOS % 5.1 % 11/29/2012 CBC 3509581 BASO % 0.6 % 11/29/2012 CBC 8978903 RDW 13.8 % 11/29/2012 CBC 5219197 ABS LARA 4.61 10e9/L 11/29/2012 CBC 9511689 ABS LYMPH 2.44 10e9/L 11/29/2012 CBC 6804962 ABS MONO 0.87 10e9/L 11/29/2012 CBC 3488794 ABS EOS 0.43 10e9/L 11/29/2012 CBC 8787652 ABS BASO 0.05 10e9/L 11/29/2012 CBC 2123317 RDW-SD 45.9 fL 11/29/2012 CHEM 14 1417439 AST 25 U/L 11/29/2012 CHEM 14 4434104 ALT 26 IU/L 11/29/2012 CHEM 14 5440970 BUN 25 MG/DL 11/29/2012 CHEM 14 9794518 ALBUMIN 4.4 GM/DL 11/29/2012 CHEM 14 1161021 CHLORIDE 106 MMOL/L 11/29/2012 CHEM 14 3233807 BILI TOT 0.4 MG/DL 11/29/2012 CHEM 14 4101415 ALK PHOS 86 U/L 11/29/2012 CHEM 14 8772974 SODIUM 141 MMOL/L 11/29/2012 CHEM 14 1472655 CREATININE 0.80 MG/DL 11/29/2012 CHEM 14 7535440 CALCIUM 9.7 MG/DL 11/29/2012 CHEM 14 6531357 POTASSIUM 4.0 MMOL/L 11/29/2012 CHEM 14 6641286 PROT TOT 6.6 GM/DL 11/29/2012 CHEM 14 6030273 GLUCOSE 112 MG/DL 11/29/2012 CHEM 14 9635231 BICARB 29 MMOL/L 11/29/2012 CHEM 14 3742686 ANION GAP 6 MEQ/L 11/29/2012 A1C HPLC 7568728 A1C HPLC 79994-4 5.5 % 11/29/2012 LIPID GRP HDL TEST 54 MG/DL 11/29/2012 LIPID GRP TRIG 77 MG/DL 11/29/2012 LIPID GRP TEST LDL 78 MG/DL 11/29/2012 LIPID GRP CHOL 147 MG/DL 11/29/2012 LIPID GRP RCHOL/HDL 2.72 RATIO 11/29/2012 FREE T4 5454203 FREE T4 1.23 NG/DL 11/29/2012 GFR CALC 7748668 GFR AA >60 ML/MIN 11/29/2012 GFR CALC 8847144 GFR NON-AA >60 ML/MIN 11/29/2012 CHEM 14 7093845 AST 23 U/L 08/07/2012 CHEM 14 1504649 ALT 34 IU/L 08/07/2012 CHEM 14 9967949 BUN 26 MG/DL 08/07/2012 CHEM 14 3254195 ALBUMIN 4.4 GM/DL 08/07/2012 CHEM 14 1735390 CHLORIDE 105 MMOL/L 08/07/2012 CHEM 14 0825679 BILI TOT 0.5 MG/DL 08/07/2012 CHEM 14 2483505 ALK PHOS 79 U/L 08/07/2012 CHEM 14 2143729 SODIUM 140 MMOL/L 08/07/2012 CHEM 14 4085929 CREATININE 0.71 MG/DL 08/07/2012 CHEM 14 5922464 CALCIUM 10.4 MG/DL 08/07/2012 CHEM 14 0085863 POTASSIUM 3.8 MMOL/L 08/07/2012 CHEM 14 2297480 PROT TOT 6.8 GM/DL 08/07/2012 CHEM 14 3223831 GLUCOSE 104 MG/DL 08/07/2012 CHEM 14 0970408 BICARB 27 MMOL/L 08/07/2012 CHEM 14 4149101 ANION GAP 8 MEQ/L 08/07/2012 A1C HPLC 2995948 A1C HPLC 39070-7 5.4 % 08/07/2012 FREE T4 8422724 FREE T4 1.11 NG/DL 08/07/2012 LIPID GRP HDL TEST 50 MG/DL 08/07/2012 LIPID GRP TRIG 127 MG/DL 08/07/2012 LIPID GRP TEST LDL 93 MG/DL 08/07/2012 LIPID GRP CHOL 168 MG/DL 08/07/2012 LIPID GRP RCHOL/HDL 3.36 RATIO 08/07/2012 CBC 2397408 WBC 8.7 10e9/L 08/07/2012 CBC 7828640 RBC 4.67 10e12/L 08/07/2012 CBC 8601594 HGB 14.4 g/dL 08/07/2012 CBC 4435904 HCT DET 42.8 % 08/07/2012 CBC 2325418 MCV 91.6 fL 08/07/2012 CBC 4778714 MCH 30.8 pg 08/07/2012 CBC 6860157 MCHC 33.6 g/dL 08/07/2012 CBC 4785112 PLT 271 10e9/L 08/07/2012 CBC 7608359 MPV 12.3 fL 08/07/2012 CBC 6440038 LARA % 50.6 % 08/07/2012 CBC 7351865 LY % 34.9 % 08/07/2012 CBC 1420291 MON % 9.1 % 08/07/2012 CBC 8751392 EOS % 5.1 % 08/07/2012 CBC 6867178 BASO % 0.3 % 08/07/2012 CBC 7684102 RDW 13.6 % 08/07/2012 CBC 5150284 ABS LARA 4.40 10e9/L 08/07/2012 CBC 7924416 ABS LYMPH 3.04 10e9/L 08/07/2012 CBC 7506759 ABS MONO 0.79 10e9/L 08/07/2012 CBC 3330302 ABS EOS 0.44 10e9/L 08/07/2012 CBC 9371593 ABS BASO 0.03 10e9/L 08/07/2012 CBC 9247077 RDW-SD 44.1 fL 08/07/2012 TSH 6427023 TSH 7.419 uIU/ML 08/07/2012 GFR CALC 2664576 GFR AA >60 ML/MIN 08/07/2012 GFR CALC 3570577 GFR NON-AA >60 ML/MIN 08/07/2012 A1C HPLC 5677795 A1C HPLC 87635-5 5.3 % 02/21/2012 TSH 1141670 TSH 0.832 uIU/ML 02/16/2012 FREE T4 6303471 FREE T4 1.04 NG/DL 02/16/2012 GFR CALC 3936956 GFR AA >60 ML/MIN 02/16/2012 GFR CALC 9559984 GFR NON-AA >60 ML/MIN 02/16/2012 BMP GLUCOSE 112 MG/DL 02/16/2012 BMP CREATININE 0.65 MG/DL 02/16/2012 BMP BUN 17 MG/DL 02/16/2012 BMP SODIUM 144 MMOL/L 02/16/2012 BMP POTASSIUM 4.0 MMOL/L 02/16/2012 BMP CHLORIDE 107 MMOL/L 02/16/2012 BMP BICARB 29 MMOL/L 02/16/2012 BMP 5638965 ANION GAP 8 MEQ/L 02/16/2012 BMP 4801707 CALCIUM 9.5 MG/DL 02/16/2012 CBC 6249523 WBC 7.1 10e9/L 02/16/2012 CBC 0027915 RBC 4.47 10e12/L 02/16/2012 CBC 8170106 HGB 13.5 g/dL 02/16/2012 CBC 6957488 HCT DET 40.7 % 02/16/2012 CBC 4624954 MCV 91.1 fL 02/16/2012 CBC 2436357 MCH 30.2 pg 02/16/2012 CBC 7138288 MCHC 33.2 g/dL 02/16/2012 CBC 5003611 PLT 238 10e9/L 02/16/2012 CBC 0979001 MPV 11.4 fL 02/16/2012 CBC 8177499 LARA % 55.7 % 02/16/2012 CBC 5171953 LY % 29.6 % 02/16/2012 CBC 1024681 MON % 9.2 % 02/16/2012 CBC 3197960 EOS % 5.1 % 02/16/2012 CBC 5147777 BASO % 0.4 % 02/16/2012 CBC 3942796 RDW 13.0 % 02/16/2012 CBC 3917848 ABS LARA 3.95 10e9/L 02/16/2012 CBC 6352297 ABS LYMPH 2.10 10e9/L 02/16/2012 CBC 4803547 ABS MONO 0.65 10e9/L 02/16/2012 CBC 6941797 ABS EOS 0.36 10e9/L 02/16/2012 CBC 3470775 ABS BASO 0.03 10e9/L 02/16/2012 CBC 0118927 RDW-SD 42.4 fL 02/16/2012 URINALYSIS NONAUTO W/O SCOPE 19199 Specific [place] 1.015 DateTime(Free Text in Aprima) URINALYSIS NONAUTO W/O SCOPE 09078 PH 7 DateTime(Free Text in Aprima) URINALYSIS NONAUTO W/O SCOPE 50328 GLUCOSE neg DateTime(Free Text in Aprima) URINALYSIS NONAUTO W/O SCOPE 55536 Protein 1+ DateTime(Free Text in Apr[employer]) URINALYSIS NONAUTO W/O SCOPE 46936 Blood neg DateTime(Free Text in Aprima) URINALYSIS NONAUTO W/O SCOPE 26846 Bilirubin neg DateTime(Free Text in Aprima) URINALYSIS NONAUTO W/O SCOPE 17770 Ketones neg DateTime(Free Text in Aprima) URINALYSIS NONAUTO W/O SCOPE 18297 Urobilinogen neg DateTime(Free Text in Aprima) URINALYSIS NONAUTO W/O SCOPE 25467 Nitrite postive DateTime(Free Text in Aprima) URINALYSIS NONAUTO W/O SCOPE 59675 Leukocytes 3+ DateTime(Free Text in Aprima) URINALYSIS NONAUTO W/O SCOPE 18684 Specific [place] 1.030 DateTime(Free Text in Aprima) URINALYSIS NONAUTO W/O SCOPE 89200 PH 6 DateTime(Free Text in Aprima) URINALYSIS NONAUTO W/O SCOPE 02353 GLUCOSE neg DateTime(Free Text in Aprima) URINALYSIS NONAUTO W/O SCOPE 47217 Protein neg DateTime(Free Text in Aprima) URINALYSIS NONAUTO W/O SCOPE 74730 Blood neg DateTime(Free Text in Aprima) URINALYSIS NONAUTO W/O SCOPE 19998 Bilirubin neg DateTime(Free Text in Aprima) URINALYSIS NONAUTO W/O SCOPE 24387 Ketones neg DateTime(Free Text in Aprima) URINALYSIS NONAUTO W/O SCOPE 92864 Urobilinogen neg DateTime(Free Text in Aprima) URINALYSIS NONAUTO W/O SCOPE 00379 Nitrite neg DateTime(Free Text in Aprima) URINALYSIS NONAUTO W/O SCOPE 63234 Leukocytes trace DateTime(Free Text in Aprima) URINALYSIS NONAUTO W/O SCOPE 42010 Specific [place] 1.005 DateTime(Free Text in Aprima) URINALYSIS NONAUTO W/O SCOPE 92373 PH 5 DateTime(Free Text in Aprima) URINALYSIS NONAUTO W/O SCOPE 32373 GLUCOSE neg DateTime(Free Text in Aprima) URINALYSIS NONAUTO W/O SCOPE 37403 Protein neg DateTime(Free Text in Aprima) URINALYSIS NONAUTO W/O SCOPE 64829 Blood neg DateTime(Free Text in Aprima) URINALYSIS NONAUTO W/O SCOPE 07543 Bilirubin neg DateTime(Free Text in Aprima) URINALYSIS NONAUTO W/O SCOPE 06941 Ketones neg DateTime(Free Text in Aprima) URINALYSIS NONAUTO W/O SCOPE 02341 Urobilinogen neg DateTime(Free Text in Aprima) URINALYSIS NONAUTO W/O SCOPE 49816 Nitrite neg DateTime(Free Text in Aprima) URINALYSIS NONAUTO W/O SCOPE 87876 Leukocytes neg DateTime(Free Text in Aprima) UA 67885 Specific [place] 1.030 DateTime(Free Text in Novima) UA 79983 PH 5 DateTime(Free Text in Aprima) UA 78861 GLUCOSE neg DateTime(Free Text in Aprima) UA 11619 Protein trace DateTime(Free Text in Aprima) UA 49586 Blood large DateTime(Free Text in Aprima) UA 05169 Bilirubin neg DateTime(Free Text in Aprima) UA 46064 Ketones neg DateTime(Free Text in Aprima) UA 80773 Urobilinogen neg DateTime(Free Text in Aprima) UA 41838 Nitrite neg DateTime(Free Text in Aprima) UA 39731 Leukocytes large DateTime(Free Text in ) Review [...] Procedure Codes Date THER/PROPH/DIAG INJ SC/IM CPT-4: 19118 02/20/2019 ROCEPHIN, PER 250 MG CPT- 4: J0696 02/20/2019 URINALYSIS NONAUTO W/O SCOPE CPT-4: 63747 07/10/2018 TRIAMCINOLONE ACET INJ NOS CPT-4: J3301 05/28/2018 ROCEPHIN, PER 250 MG CPT- 4: J0696 05/28/2018 ROCEPHIN, PER 250 MG CPT- 4: J0696 01/19/2018 TRIAMCINOLONE ACET INJ NOS CPT-4: J3301 01/19/2018 PPPS, SUBSEQ VISIT CPT- 4: G0439 11/23/2017 TRIAMCINOLONE ACET INJ NOS CPT-4: J3301 06/27/2017 THER/PROPH/DIAG INJ SC/IM CPT-4: 41642 04/20/2017 TRIAMCINOLONE ACET INJ NOS CPT-4: J3301 04/20/2017 TRIAMCINOLONE ACET INJ NOS CPT-4: J3301 03/14/2017 ROCEPHIN, PER 250 MG CPT- 4: J0696 03/14/2017 DESTRUCT PREMALG LESION CPT-4: 03797 12/05/2016 DESTRUCT PREMALG LES 2-14 CPT-4: 16418 12/05/2016 URINALYSIS NONAUTO W/O SCOPE CPT-4: 79700 11/28/2016 ROCEPHIN, PER 250 MG CPT- 4: J0696 11/28/2016 PPPS, SUBSEQ VISIT CPT- 4: G0439 11/07/2016 THER/PROPH/DIAG INJ SC/IM CPT-4: 41583 11/07/2016 TRIAMCINOLONE ACET INJ NOS CPT-4: J3301 11/07/2016 ROCEPHIN, PER 250 MG CPT- 4: J0696 11/07/2016 THER/PROPH/DIAG INJ SC/IM CPT-4: 35258 08/15/2016 TRIAMCINOLONE ACET INJ NOS CPT-4: J3301 08/15/2016 ROCEPHIN, PER 250 MG CPT- 4: J0696 08/15/2016 URINALYSIS NONAUTO W/O SCOPE CPT-4: 19664 05/05/2016 ROCEPHIN, PER 250 MG CPT- 4: J0696 12/07/2015 TRIAMCINOLONE ACET INJ NOS CPT-4: J3301 11/24/2015 ROCEPHIN, PER 250 MG CPT- 4: J0696 11/24/2015 THER/PROPH/DIAG INJ SC/IM CPT-4: 74196 11/24/2015 THER/PROPH/DIAG INJ SC/IM CPT-4: 00046 08/27/2015 KETOROLAC TROMETHAMINE INJ CPT-4: J1885 08/27/2015 PROMETHAZINE HCL INJECTION CPT-4: J2550 08/27/2015 THER/PROPH/DIAG INJ SC/IM CPT-4: 58342 08/10/2015 TRIAMCINOLONE ACET INJ NOS CPT-4: J3301 08/10/2015 ROCEPHIN, PER 250 MG CPT- 4: J0696 08/10/2015 C WOUN RTS (CULTURE OTHR SPECIMN AEROBIC) CPT-4: 51787 07/28/2015 THER/PROPH/DIAG INJ SC/IM CPT-4: 11831 03/19/2015 TRIAMCINOLONE ACET INJ NOS CPT-4: J3301 03/19/2015 ROCEPHIN, PER 250 MG CPT- 4: J0696 06/23/2014 TRIAMCINOLONE ACET INJ NOS CPT-4: J3301 06/23/2014 INJ TRIGGER POINT 1/2 MUSCL CPT-4: 01183 06/05/2014 URINALYSIS NONAUTO W/O SCOPE CPT-4: 88878 02/11/2014 URINALYSIS NONAUTO W/O SCOPE CPT-4: 64247 10/15/2013 ROCEPHIN, PER 250 MG CPT- 4: J0696 09/24/2013 THER/PROPH/DIAG INJ SC/IM CPT-4: 99007 09/19/2013 ROCEPHIN, PER 250 MG CPT- 4: J0696 09/19/2013 PRESCRIP TRANSMIT VIA ERX SY CPT-4: G8553 08/05/2013 ROCEPHIN, PER 250 MG CPT- 4: J0696 07/10/2013 THER/PROPH/DIAG INJ SC/IM CPT-4: 78785 07/10/2013 TRIAMCINOLONE ACET INJ NOS CPT-4: J3301 07/10/2013 PRESCRIP TRANSMIT VIA ERX SY CPT-4: G8553 07/10/2013 [id number] EST. PATIENT, LEVEL III CPT-4: 70020 06/03/2013 PRESCRIP TRANSMIT VIA ERX SY CPT-4: G8553 06/03/2013 PRESCRIP TRANSMIT VIA ERX SY CPT-4: G8553 05/07/2013 ROUTINE VENIPUNCTURE CPT- 4: 87116 04/30/2013 ROUTINE VENIPUNCTURE CPT- 4: 50424 11/29/2012 TRIAMCINOLONE ACET INJ NOS CPT-4: J3301 09/24/2012 THER/PROPH/DIAG INJ SC/IM CPT-4: 93989 09/24/2012 URINALYSIS NONAUTO W/O SCOPE CPT-4: 99784 09/24/2012 PRESCRIP TRANSMIT VIA ERX SY CPT-4: G8553 09/24/2012 PRESCRIP TRANSMIT VIA ERX SY CPT-4: G8553 09/10/2012 PRESCRIP TRANSMIT VIA ERX SY CPT-4: G8553 08/08/2012 ROUTINE VENIPUNCTURE CPT- 4: 81265 08/07/2012 ROUTINE VENIPUNCTURE CPT- 4: 59995 02/16/2012 URINALYSIS NONAUTO W/O SCOPE CPT-4: 07928 02/15/2012 ROCEPHIN, PER 250 MG CPT- 4: J0696 02/15/2012 PRESCRIP TRANSMIT VIA ERX SY CPT-4: G8553 02/15/2012 ROUTINE VENIPUNCTURE CPT- 4: 45708 11/08/2011 ROCEPHIN, PER 250 MG CPT- 4: J0696 07/14/2011 THER/PROPH/DIAG INJ SC/IM CPT-4: 75772 07/14/2011 Influenza Virus Vaccine, Split Virus, >3 Yrs, IM CPT-4: 23406 05/23/2011 IMMUNIZATION ADMIN CPT- 4: 37021 05/23/2011 THER/PROPH/DIAG INJ SC/IM CPT-4: 48749 05/03/2011 ROCEPHIN, PER 250 MG CPT- 4: J0696 05/03/2011 TRIAMCINOLONE ACET INJ NOS CPT-4: J3301 05/03/2011 Vital Signs Date Vital 02/25/2019 BMI: 31.9 Code: 72118-7 Height: 4'11" Weight: 158 lbs 02/20/2019 Blood Pressure 1: 124/76 Code: 8480-6 BMI: 31.9 Code: 39701-3 Heart Rate 1: 67 bpm Height: 4'11" SpO2: 97% Weight: 158 lbs 01/29/2019 Blood Pressure 1: 138/88 Code: 8480-6 BMI: 31.9 Code: 32218-3 Heart Rate 1: 74 bpm Height: 4'11" SpO2: 94% Weight: 158 lbs 11/27/2018 Blood Pressure 1: 144/82 Code: 8480-6 Heart Rate 1: 67 bpm SpO2: 93% 11/16/2018 Blood Pressure 1: 168/100 Code: 8480-6 Heart Rate 1: 74 bpm SpO2: 96% 11/13/2018 Blood Pressure 1: 184/98 Code: 8480-6 BMI: 32.1 Code: 30929-7 Heart Rate 1: 68 bpm Height: 4'11" SpO2: 96% Weight: 159 lbs 10/30/2018 Blood Pressure 1: 158/98 Code: 8480-6 BMI: 31.7 Code: 03450-3 Heart Rate 1: 80 bpm Height: 4'11" SpO2: 96% Weight: 157 lbs 10/08/2018 Blood Pressure 1: 140/80 Code: 8480-6 BMI: 32.1 Code: 01052-7 Heart Rate 1: 92 bpm Height: 4'11" SpO2: 103% Weight: 159 lbs 07/16/2018 Blood Pressure 1: 142/80 Code: 8480-6 BMI: 31.1 Code: 01552-7 Heart Rate 1: 78 bpm Height: 4'11" SpO2: 98% Weight: 154 lbs 07/10/2018 Blood Pressure 1: 156/82 Code: 8480-6 BMI: 31.1 Code: 79549-2 Heart Rate 1: 63 bpm Height: 4'11" SpO2: 99% Weight: 154 lbs 05/28/2018 Blood Pressure 1: 142/80 Code: 8480-6 Heart Rate 1: 82 bpm Height: SpO2: 97% Temperature: 35.9 (C) / 96.6 (F) Weight: 02/07/2018 Height: Weight: 01/19/2018 Blood Pressure 1: 128/76 Code: 8480-6 BMI: 31.2 Code: 56768-1 Heart Rate 1: 71 bpm Height: 4'11" SpO2: 96% Temperature: 36.5 (C) / 97.7 (F) Weight: 154 lbs 8 oz 11/23/2017 Blood Pressure 1: 146/80 Code: 8480-6 BMI: 31.7 Code: 59948-0 Heart Rate 1: 64 bpm Height: 4'11" SpO2: 97% Waist Measure (cm): 89 cm Weight: 157 lbs 09/12/2017 Blood Pressure 1: 140/86 Code: 8480-6 Heart Rate 1: 62 bpm SpO2: 96% Temperature: 36.6 (C) / 97.8 (F) Weight: 153 lbs 07/25/2017 Blood Pressure 1: 140/72 Code: 8480-6 BMI: 31.3 Code: 44669-3 Heart Rate 1: 76 bpm Height: 4'11" SpO2: 97% Temperature: 37.2 (C) / 99.0 (F) Weight: 155 lbs 06/27/2017 Blood Pressure 1: 144/84 Code: 8480-6 BMI: 31.1 Code: 44908-8 Heart Rate 1: 63 bpm Height: 4'11" SpO2: 99% Temperature: 36.4 (C) / 97.6 (F) Weight: 154 lbs 05/08/2017 Blood Pressure 1: 142/86 Code: 8480-6 BMI: 30.9 Code: 30104-9 Height: 4'11" Temperature: 36.3 (C) / 97.4 (F) Weight: 153 lbs 03/14/2017 Blood Pressure 1: 146/82 Code: 8480-6 BMI: 30.9 Code: 23402-8 Heart Rate 1: 64 bpm Height: 4'11" SpO2: 94% Weight: 153 lbs 02/20/2017 Blood Pressure 1: 142/80 Code: 8480-6 BMI: 30.9 Code: 81158-9 Heart Rate 1: 75 bpm Height: 4'11" SpO2: 97% Weight: 153 lbs 02/06/2017 Blood Pressure 1: 138/90 Code: 8480-6 BMI: 31.5 Code: 64835-2 Heart Rate 1: 61 bpm Height: 4'11" SpO2: 98% Weight: 156 lbs 12/05/2016 Blood Pressure 1: 122/72 Code: 8480-6 Heart Rate 1: 59 bpm Height: 4'11" SpO2: 98% Weight: 11/28/2016 Blood Pressure 1: 154/86 Code: 8480-6 BMI: 31.3 Code: 75324-8 Heart Rate 1: 64 bpm Height: 4'11" SpO2: 94% Temperature: 36.2 (C) / 97.2 (F) Weight: 155 lbs 11/07/2016 Blood Pressure 1: 128/64 Code: 8480-6 BMI: 31.5 Code: 74758-3 Heart Rate 1: 59 bpm Height: 4'11" SpO2: 97% Weight: 156 lbs 08/15/2016 Blood Pressure 1: 110/62 Code: 8480-6 BMI: 31.5 Code: 79828-6 Heart Rate 1: 76 bpm Height: 4'11" SpO2: 97% Weight: 156 lbs 06/07/2016 Blood Pressure 1: 120/80 Code: 8480-6 BMI: 32.9 Code: 32446-2 Heart Rate 1: 63 bpm Height: 4'11" SpO2: 93% Temperature: 36.5 (C) / 97.7 (F) Weight: 163 lbs 03/15/2016 Blood Pressure 1: 90/42 Code: 8480-6 Heart Rate 1: 65 bpm SpO2: 94% 03/14/2016 Blood Pressure 1: 188/110 Code: 8480-6 Heart Rate 1: 68 bpm SpO2: 96% 02/22/2016 Blood Pressure 1: 158/80 Code: 8480-6 BMI: 32.7 Code: 33035-5 Heart Rate 1: 71 bpm Height: 4'11" SpO2: 95% Weight: 162 lbs 12/07/2015 Blood Pressure 1: 140/88 Code: 8480-6 BMI: 32.9 Code: 37403-2 Heart Rate 1: 99 bpm Height: 4'11" SpO2: 94% Temperature: 35.9 (C) / 96.6 (F) Weight: 163 lbs 11/24/2015 Blood Pressure 1: 144/78 Code: 8480-6 BMI: 33.7 Code: 28302-7 Heart Rate 1: 60 bpm Height: 4'11" SpO2: 98% Temperature: 36.6 (C) / 97.9 (F) Weight: 167 lbs 08/27/2015 Blood Pressure 1: 164/82 Code: 8480-6 BMI: 32.3 Code: 55993-2 Heart Rate 1: 60 bpm Height: 4'11" SpO2: 93% Weight: 160 lbs 08/10/2015 Blood Pressure 1: 130/60 Code: 8480-6 BMI: 32.5 Code: 23240-4 Heart Rate 1: 64 bpm Height: 4'11" SpO2: 97% Weight: 161 lbs 07/28/2015 Blood Pressure 1: 124/68 Code: 8480-6 BMI: 32.5 Code: 51140-2 Heart Rate 1: 69 bpm Height: 4'11" SpO2: 97% Weight: 161 lbs 06/11/2015 Blood Pressure 1: 148/80 Code: 8480-6 BMI: 32.9 Code: 48288-1 Heart Rate 1: 70 bpm Height: 4'11" SpO2: 94% Weight: 163 lbs 03/19/2015 Blood Pressure 1: 150/102 Code: 8480-6 Blood Pressure 2: 152/92 Code: 8480-6 BMI: 32.5 Code: 49876-1 Heart Rate 1: 71 bpm Height: 4'11" SpO2: 96% Weight: 161 lbs 01/07/2015 Blood Pressure 1: 126/84 Code: 8480-6 Heart Rate 1: 80 bpm Height: 4'11" 09/23/2014 Blood Pressure 1: 112/72 Code: 8480-6 BMI: 33.9 Code: 26152-8 Heart Rate 1: 72 bpm Height: 4'11" Weight: 168 lbs 08/05/2014 Blood Pressure 1: 140/86 Code: 8480-6 BMI: 33.3 Code: 16698-1 Height: 4'11" Weight: 165 lbs 06/23/2014 Blood Pressure 1: 132/70 Code: 8480-6 BMI: 32.9 Code: 03439-3 Heart Rate 1: 58 bpm Height: 4'11" Temperature: 36.0 (C) / 96.8 (F) Weight: 163 lbs 06/05/2014 Blood Pressure 1: 121/85 Code: 8480-6 BMI: 34.3 Code: 23741-6 Height: 4'11" Weight: 170 lbs 04/03/2014 Blood Pressure 1: 128/80 Code: 8480-6 Heart Rate 1: 88 bpm Weight: 167 lbs 03/07/2014 Blood Pressure 1: 122/82 Code: 8480-6 BMI: 33.9 Code: 03715-7 Heart Rate 1: 68 bpm Height: 4'11" Weight: 168 lbs 11/21/2013 Blood Pressure 1: 100/58 Code: 8480-6 BMI: 33.7 Code: 50353-7 Heart Rate 1: 64 bpm Height: 4'11" Weight: 167 lbs 09/24/2013 Blood Pressure 1: 148/88 Code: 8480-6 Heart Rate 1: 68 bpm Weight: 09/19/2013 Blood Pressure 1: 120/80 Code: 8480-6 BMI: 33.9 Code: 23958-4 Heart Rate 1: 80 bpm Height: 4'11" Temperature: 36.9 (C) / 98.5 (F) Weight: 168 lbs 08/05/2013 Blood Pressure 1: 128/80 Code: 8480-6 BMI: 34.3 Code: 91971-4 Heart Rate 1: 64 bpm Height: 4'11" Temperature: 36.2 (C) / 97.2 (F) Weight: 170 lbs 07/10/2013 Blood Pressure 1: 120/84 Code: 8480-6 BMI: 36.0 Code: 76950-2 Heart Rate 1: 90 bpm Height: 4'11" SpO2: 97% Temperature: 36.8 (C) / 98.2 (F) Weight: 178 lbs 06/03/2013 Blood Pressure 1: 136/94 Code: 8480-6 BMI: 34.7 Code: 61304-7 Heart Rate 1: 68 bpm Height: 4'11" Temperature: 36.7 (C) / 98.0 (F) Weight: 172 lbs 05/13/2013 Blood Pressure 1: 132/90 Code: 8480-6 Heart Rate 1: 68 bpm 05/07/2013 Blood Pressure 1: 168/100 Code: 8480-6 BMI: 34.3 Code: 73512-6 Heart Rate 1: 76 bpm Height: 4'11" Weight: 170 lbs 12/03/2012 Blood Pressure 1: 142/78 Code: 8480-6 BMI: 33.5 Code: 52448-3 Heart Rate 1: 76 bpm Height: 4'11" Weight: 166 lbs 09/24/2012 Blood Pressure 1: 116/70 Code: 8480-6 Heart Rate 1: 68 bpm Respiratory Rate: 16 bpm Temperature: 36.9 (C) / 98.4 (F) Weight: 162 lbs 09/10/2012 Blood Pressure 1: 116/80 Code: 8480-6 BMI: 33.7 Code: 88884-5 Heart Rate 1: 76 bpm Height: 4'11" [...] 1: 149/85 Code: 8480-6 BMI: 32.9 Code: 94219-7 Heart Rate 1: 79 bpm Height: 4'11" Weight: 164 lbs 05/03/2011 Blood Pressure 1: 122/79 Code: 8480-6 BMI: 30.8 Code: 33855-2 Heart Rate 1: 72 bpm Height: 5'1" Weight: 163 lbs 04/25/2011 Blood Pressure 1: 137/84 Code: 8480-6 BMI: 31.0 Code: 46183-2 Heart Rate 1: 63 bpm Height: 5'1" [...] days ago 02/15/2012 while visiting mother in [place] had uti and was put on pyridum [...] surg in december. then took trip to [facility] to see mother and has had swelling [...] Quality chronic 08/01/2011 states went shopping on [facility] [employer] over night without taking any of medications [...] left upper limb[ICD10: L03.114] Shahida Goldman MD, [facility] CPT-4: 59748 02/25/2019 52443 EST. PATIENT, LEVEL III Diagnosis: Cellulitis of left upper limb[ICD10: L03.114] Isabelle Goldman MD, [facility] CPT-4: 10535 02/20/2019 ([id number]) 80460 EST. PATIENT, LEVEL III Diagnosis: Functional diarrhea[ICD10: K59.1] Melba Goldman MD, [facility] CPT- 4: 59114 01/29/2019 ([id number]) Miscellaneous no charge Diagnosis: Essential (primary) hypertension[ICD10: I10] Melba Goldman MD, [facility] CPT-4: 63091 11/16/2018 ([id number]) 42495 EST. PATIENT, LEVEL III Diagnosis: Essential (primary) hypertension[ICD10: I10] Shahida Goldman MD, [facility] CPT-4: 49283 11/13/2018 ([id number]) 13218 EST. PATIENT, LEVEL IV Diagnosis: Essential (primary) hypertension[ICD10: I10] Diagnosis: Mixed hyperlipidemia[ICD10: E78.2] Diagnosis: Hypothyroidism, unspecified[ICD10: E03.9] Shahida Goldman MD, [facility] CPT-4: 41118 10/30/2018 74833 EST. PATIENT, LEVEL III Diagnosis: Other mucopurulent conjunctivitis, bilateral[ICD10: H10.023] Diagnosis: Other allergic rhinitis[ICD10: J30.89] Shahida Goldman MD, [facility] CPT-4: 28273 10/08/2018 28665 EST. PATIENT, LEVEL III Diagnosis: Essential (primary) hypertension[ICD10: I10] Diagnosis: Generalized anxiety disorder[ICD10: F41.1] Isabelle Goldman MD, [facility] CPT-4: 32059 07/16/2018 ([id number]) 46712 EST. PATIENT, LEVEL III Diagnosis: Acute recurrent maxillary sinusitis[ICD10: J01.01] Diagnosis: Frequency of micturition[ICD10: R35.0] Diagnosis: Low back pain[ICD10: M54.5] Shahida Goldman MD, [facility] CPT-4: 20909 07/10/2018 ([id number]) 41111 EST. PATIENT, LEVEL III Diagnosis: Acute recurrent maxillary sinusitis[ICD10: J01.01] Shahida Goldman MD, [facility] CPT-4: 62636 05/28/2018 ([id number]) Miscellaneous no charge Diagnosis: Laceration without foreign body, left lower leg, subsequent encounter[ICD10: S81.812D] Diagnosis: Laceration without foreign body, right lower leg, subsequent encounter[ICD10: S81.811D] Isabelle Goldman MD, [facility] CPT-4: 04828 02/08/2018 36793 EST. PATIENT, LEVEL III Diagnosis: Cellulitis of left lower limb[ICD10: L03.116] Diagnosis: Cellulitis of right lower limb[ICD10: L03.115] Diagnosis: Laceration without foreign body, left lower leg, initial encounter[ICD10: S81.812A] Diagnosis: Laceration without foreign body, right lower leg, initial encounter[ICD10: S81.811A] Isabelle Goldman MD, [facility] CPT-4: 43528 02/07/2018 ([id number]) 62381 EST. PATIENT, LEVEL IV Diagnosis: Primary generalized (osteo)arthritis[ICD10: M15.0] Diagnosis: Acute recurrent maxillary sinusitis[ICD10: J01.01] Diagnosis: Low back pain[ICD10: M54.5] Diagnosis: Other allergic rhinitis[ICD10: J30.89] Diagnosis: Obstructive sleep apnea (adult) (pediatric)[ICD10: G47.33] Shahida Goldman MD, [facility] CPT-4: 00502 01/19/2018 27745 EST. PATIENT, LEVEL IV Diagnosis: Diarrhea, unspecified[ICD10: R19.7] Diagnosis: Generalized abdominal pain[ICD10: R10.84] Diagnosis: Other allergic rhinitis[ICD10: J30.89] Diagnosis: Other acute sinusitis[ICD10: J01.80] Isabelle Goldman MD, [facility] CPT- 4: 46913 09/12/2017 64909 EST. PATIENT, LEVEL III Diagnosis: Acute laryngopharyngitis[ICD10: J06.0] Diagnosis: Other allergic rhinitis[ICD10: J30.89] Diagnosis: Cough[ICD10: R05] Diagnosis: Wheezing[ICD10: R06.2] Isabelle Goldman MD, [facility] CPT-4: 57442 07/25/2017 ([id number]) 79382 EST. PATIENT, LEVEL IV Diagnosis: Acute recurrent maxillary sinusitis[ICD10: J01.01] Diagnosis: Cervicalgia[ICD10: M54.2] Diagnosis: Diarrhea, unspecified[ICD10: R19.7] Shahida Goldman MD, [facility] CPT-4: 80320 06/27/2017 ([id number]) 39661 EST. PATIENT, LEVEL III Diagnosis: Chronic maxillary sinusitis[ICD10: J32.0] Diagnosis: Gastro-esophageal reflux disease without esophagitis[ICD10: K21.9] Shahida Goldman MD, [facility] CPT-4: 39190 05/08/2017 ([id number]) 20949 EST. PATIENT, LEVEL III Diagnosis: Acute recurrent maxillary sinusitis[ICD10: J01.01] Shahida Goldman MD, [facility] CPT-4: 18168 03/14/2017 85761 EST. PATIENT, LEVEL IV Diagnosis: Epigastric pain[ICD10: R10.13] Diagnosis: Left upper quadrant pain[ICD10: R10.12] Diagnosis: Left lower quadrant pain[ICD10: R10.32] Isabelle Goldman MD, [facility] CPT-4: 11797 02/20/2017 ([id number]) 46990 EST. PATIENT, LEVEL IV Diagnosis: Generalized anxiety disorder[ICD10: F41.1] Diagnosis: Major depressive disorder, recurrent, moderate[ICD10: F33.1] Diagnosis: Left upper quadrant pain[ICD10: R10.12] Diagnosis: Epigastric pain[ICD10: R10.13] Diagnosis: Actinic keratosis[ICD10: L57.0] Melba Goldman MD, [facility] CPT-4: 91873 02/06/2017 ([id number]) 72571 EST. PATIENT, LEVEL III Diagnosis: Actinic keratosis[ICD10: L57.0] Diagnosis: Major depressive disorder, recurrent, moderate[ICD10: F33.1] Melba Goldman MD, [facility] CPT-4: 57682 12/05/2016 ([id number]) 36222 EST. PATIENT, LEVEL III Diagnosis: Acute recurrent maxillary sinusitis[ICD10: J01.01] Diagnosis: Dysuria[ICD10: R30.0] Shahida Goldman MD, [facility] CPT-4: 63916 11/28/2016 40608 EST. PATIENT, LEVEL IV Diagnosis: Other acute sinusitis[ICD10: J01.80] Diagnosis: Acute laryngopharyngitis[ICD10: J06.0] Diagnosis: Other allergic rhinitis[ICD10: J30.89] Isabelle Goldman MD, [facility] CPT- 4: 39945 08/15/2016 ([id number]) 00062 EST. PATIENT, LEVEL III Diagnosis: Acute recurrent maxillary sinusitis[ICD10: J01.01] Diagnosis: Low back pain[ICD10: M54.5] Shahida Goldman MD, [facility] CPT-4: 39146 06/07/2016 ([id number]) Miscellaneous no charge Diagnosis: Essential (primary) hypertension[ICD10: I10] Shahida Goldman MD, [facility] CPT-4: 62143 03/15/2016 70361 EST. PATIENT, LEVEL IV Diagnosis: Essential (primary) hypertension[ICD10: I10] Diagnosis: Headache[ICD10: R51] Diagnosis: Generalized anxiety disorder[ICD10: F41.1] Shahida Goldman MD, [facility] CPT-4: 99449 03/14/2016 38234 EST. PATIENT, LEVEL III Diagnosis: Laceration without foreign body, left lower leg, initial encounter[ICD10: S81.812A] Isabelle Goldman MD, [facility] CPT-4: 91918 02/22/2016 ([id number]) 75316 EST. PATIENT, LEVEL III Diagnosis: Acute recurrent maxillary sinusitis[ICD10: J01.01] Diagnosis: Cough[ICD10: R05] Diagnosis: Allergic rhinitis due to pollen[ICD10: J30.1] Shahida Goldman MD, [facility] CPT-4: 13147 12/07/2015 ([id number]) 97775 EST. PATIENT, LEVEL IV Diagnosis: Essential (primary) hypertension[ICD10: I10] Diagnosis: Acute recurrent maxillary sinusitis[ICD10: J01.01] Diagnosis: Generalized anxiety disorder[ICD10: F41.1] Diagnosis: Cervicalgia[ICD10: M54.2] Diagnosis: Generalized intra-abdominal and pelvic swelling, mass and lump[ICD10: R19.07] Melba Goldman MD, [facility] CPT-4: 34485 11/24/2015 30984 EST. PATIENT, LEVEL III Diagnosis: Other migraine, intractable, without status migrainosus[ICD10: G43.819] Isabelle Goldman MD, [facility] CPT-4: 40424 08/27/2015 83171 EST. PATIENT, LEVEL III Diagnosis: Acute recurrent maxillary sinusitis[ICD10: J01.01] Diagnosis: Candidal stomatitis[ICD10: B37.0] Diagnosis: Acute laryngopharyngitis[ICD10: J06.0] Isabelle Goldman MD, [facility] CPT- 4: 78869 08/10/2015 36795 EST. PATIENT, LEVEL III Diagnosis: Superficial foreign body of left hand, initial encounter[ICD10: S60.552A] Melba Goldman MD, [facility] CPT-4: 65172 07/28/2015 ([id number]) 13392 EST. PATIENT, LEVEL III Diagnosis: Essential (primary) hypertension[ICD10: I10] Diagnosis: Tinea cruris[ICD10: B35.6] Diagnosis: Abnormal levels of other serum enzymes[ICD10: R74.8] Shahida Goldman MD, [facility] CPT-4: 51662 06/11/2015 ([id number]) 16417 EST. PATIENT, LEVEL IV Diagnosis: ESSENTIAL HYPERTENSION[ICD9: 401.9] Diagnosis: Hypothyroid[ICD9: 244.9] Diagnosis: ALLERGIC RHINITIS[ICD9: 477.9] Diagnosis: Anxiety[ICD9: 300.00] Diagnosis: Sleep apnea[ICD9: 780.57] Shahida Goldman MD, [facility] CPT-4: 94502 03/19/2015 ([id number]) 06799 EST. PATIENT, LEVEL III Diagnosis: ACUTE SINUSITIS[ICD9: 461.9] Celi Goldman MD, [facility] CPT-4: 23487 01/07/2015 ([id number]) 27824 EST. PATIENT, LEVEL III Diagnosis: Conjunctivitis[ICD9: 372.30] Shahida Goldman MD, [facility] CPT-4: 38903 09/23/2014 08737 EST. PATIENT, LEVEL II Diagnosis: Noninfected skin tear of leg[ICD9: 891.0] Shahida Goldman MD, [facility] CPT-4: 79774 08/05/2014 ([id number]) 60439 EST. PATIENT, LEVEL III Diagnosis: Chronic maxillary sinusitis[ICD9: 473.0] Shahida Goldman MD, [facility] CPT-4: 76510 06/23/2014 41800 EST. PATIENT, LEVEL II Diagnosis: Headache[ICD9: 784.0] Shahida Goldman MD, [facility] CPT-4: 60216 06/05/2014 ([id number]) 79138 EST. PATIENT, LEVEL III Diagnosis: Abrasion of right leg[ICD9: 916.0] Diagnosis: Headache[ICD9: 784.0] Diagnosis: ALLERGIC RHINITIS[ICD9: 477.9] Shahida Goldman MD, [facility] CPT-4: 55117 04/03/2014 36141 EST. PATIENT, LEVEL II Diagnosis: Tinea corporis[ICD9: 110.5] Diagnosis: Exposure to scabies[ICD9: V01.89] Shahida Goldman MD, [facility] CPT- 4: 28940 03/07/2014 ([id number]) 16631 EST. PATIENT, LEVEL III Diagnosis: ESSENTIAL HYPERTENSION[SNOMED: 29684245] Diagnosis: OSTEOARTH NOS-UNSPEC[ICD9: 715.90] Diagnosis: Lumbago[ICD9: 724.2] Diagnosis: Cervicalgia[ICD9: 723.1] Shahida Goldman MD, [facility] CPT-4: 82100 11/21/2013 ([id number]) 79491 EST. PATIENT, LEVEL III Diagnosis: DEPRESSIVE DISORDER NEC[ICD9: 311] Diagnosis: Paronychia[ICD9: 681.9] Melba Goldman MD, [facility] CPT-4: 83845 09/24/2013 ([id number]) 43548 EST. PATIENT, LEVEL III Diagnosis: Paronychia[ICD9: 681.9] Diagnosis: Cellulitis[ICD9: 682.9] Melba Goldman MD, [facility] CPT-4: 83843 09/19/2013 ([id number]) 58206 EST. PATIENT, LEVEL III Diagnosis: Conjunctivitis[ICD9: 372.30] Diagnosis: Thrush[ICD9: 112.0] Shahida Goldman MD, [facility] CPT-4: 28154 08/05/2013 ([id number]) 48612 EST. PATIENT, LEVEL III Diagnosis: ACUTE MAXILLARY SINUSITIS[ICD9: 461.0] Diagnosis: COUGH[ICD9: 786.2] Diagnosis: Insomnia[ICD9: 780.52] Diagnosis: ESOPHAGEAL REFLUX[ICD9: 530.81] Melba Goldman MD, [facility] CPT-4: 37816 07/10/2013 ([id number]) Miscellaneous no charge Diagnosis: ESSENTIAL HYPERTENSION[SNOMED: 29342253] Melba Goldman MD, [facility] CPT-4: 06118 05/13/2013 ([id number]) 42368 EST. PATIENT, LEVEL IV Diagnosis: ESSENTIAL HYPERTENSION[SNOMED: 98384960] Diagnosis: HYPOTHYROIDISM[ICD9: 244.9] Diagnosis: OSTEOARTH NOS-UNSPEC[ICD9: 715.90] Melba Goldamn MD, [facility] CPT- 4: 55830 05/07/2013 ([id number]) 70122 EST. PATIENT, LEVEL IV Diagnosis: Osteoarthritis[ICD9: 715.90] Diagnosis: Knee pain, bilateral[ICD9: 719.46] Diagnosis: Hip pain[ICD9: 719.45] Melba Goldman MD, [facility] CPT-4: 30513 12/03/2012 ([id number]) 45232 EST. PATIENT, LEVEL III Diagnosis: Thrush[ICD9: 112.0] Melba Goldman MD [facility] CPT-4: 40133 09/24/2012 ([id number]) 46576 EST. PATIENT, LEVEL IV Diagnosis: ESSENTIAL HYPERTENSION[SNOMED: 36385579] Diagnosis: Thrush[ICD9: 112.0] Diagnosis: Sleep apnea[ICD9: 780.57] Melba Goldman MD, [facility] CPT-4: 50967 09/10/2012 ([id number]) 57822 EST. PATIENT, LEVEL IV Diagnosis: Esophageal reflux[ICD9: 530.81] Diagnosis: Hypothyroid[ICD9: 244.9] Diagnosis: JOINT PAIN-MULT JOINTS[ICD9: 719.49] Diagnosis: ALLERGIC RHINITIS[ICD9: 477.9] Melba Goldman MD, [facility] CPT-4: 52306 08/08/2012 ([id number]) 34369 EST. PATIENT, LEVEL IV Diagnosis: Urinary frequency[ICD9: 788.41] Diagnosis: EDEMA[ICD9: 782.3] Diagnosis: HYPOTHYROIDISM[ICD9: 244.9] Diagnosis: Fatigue[ICD9: 780.79] Melba Goldman MD, [facility] CPT-4: 77960 02/15/2012 ([id number]) 75158 EST. PATIENT, LEVEL IV Diagnosis: Abdominal pain[ICD9: 789.00] Diagnosis: Fatigue[ICD9: 780.79] Diagnosis: Nausea[ICD9: 787.02] Melba Goldman MD, [facility] CPT-4: 83754 11/10/2011 [id number] EST. PATIENT, LEVEL IV Diagnosis: ESSENTIAL HYPERTENSION[SNOMED: 30396187] Diagnosis: DIARRHEA[ICD9: 787.91] Diagnosis: DEPRESSIVE DISORDER NEC[ICD9: 311] Diagnosis: Irritable bowel disease[ICD9: 564.1] Melba Goldman MD, [facility] CPT- 4: 93027 08/01/2011 [id number] EST. PATIENT, LEVEL III Diagnosis: ACUTE SINUSITIS[ICD9: 461.9] Diagnosis: Cough[ICD9: 786.2] Shahida Goldman MD, [facility] CPT-4: 18236 07/14/2011 [id number] EST. PATIENT, LEVEL IV Diagnosis: VACCIN FOR INFLUENZA[ICD9: V04.81] Diagnosis: ESSENTIAL HYPERTENSION[SNOMED: 43419218] Diagnosis: GENERALIZED ANXIETY DISEASE[ICD9: 300.02] Diagnosis: SLEEP DISTURBANCES[ICD9: 780.50] Shahida Goldman MD, [facility] CPT- 4: 26861 05/23/2011 [id number] EST. PATIENT, LEVEL III Diagnosis: ACUTE SINUSITIS[ICD9: 461.9] Diagnosis: ALLERGIC RHINITIS[ICD9: 477.9] Diagnosis: Cough[ICD9: 786.2] Shahida Goldman MD, [facility] CPT-4: 37797 05/03/2011 40945 EST. PATIENT, LEVEL IV Diagnosis: ESSENTIAL HYPERTENSION[SNOMED: 34096980] Diagnosis: DEPRESSIVE DISORDER NEC[ICD9: 311] Diagnosis: Fatigue[ICD9: 780.79] Shahida Goldman MD, [facility] CPT-4: 38342 04/25/2011 Plan of Care Planned Activity Notes [...] warmth, discharge. 02/20/2019 Appointment: Isabelle Orozco WPtel: [phone] [facility] (15 min) Moderate 02/20/2019 Patient Education: Patient [...] good probiotic. 01/29/2019 Appointment: Melba Goldman WPtel: [phone] [facility] (15 min) Moderate 01/29/2019 Patient Education: [...] acute concerns. 11/13/2018 Appointment: Shahida Manzo WPtel: [phone] [phone] [place] (15 min) Moderate 11/13/2018 Patient Education: [...] call for acute concerns. Hyperlipidemia-check fasting labs Jzgproeqkecpjj-buckxic-rbvst labs 10/30/2018 Visit Plan: Hypertension - uncontrolled [...] call for acute concerns. Hyperlipidemia-check fasting labs Rnmsuohvxwwhpd-iidbtpn-rtmpv labs 10/30/2018 Appointment: Shahida Manzo WPtel: [phone] [phone] (30 min) Complex 10/30/2018 Patient Education: Patient Medication Summary Completed 10/30/2018 Visit Plan: Conjunctivitis - rx for eye drops/lube sent electronically to the patient's pharmacy. The patient has been instructed to cleanse affected eye with warm washcloth, then place medication into affected eye four times daily. 10/08/2018 Appointment: Shahida Manzo WPtel: [phone] [phone] (30 min) Complex 10/08/2018 Patient Education: Patient Medication Summary Completed 10/08/2018 Appointment: [phone] (15 min) Moderate 07/30/2018 Visit Plan: Anxiety [...] concerns. 07/16/2018 Appointment: Isabelle Orozco WPtel: [phone] [facility] (15 min) Moderate 07/16/2018 Patient Education: Patient [...] over-medication. 07/10/2018 Appointment: Shahida Manzo WPtel: [phone] [phone] (15 min) Moderate 07/10/2018 Patient Education: Patient Medication Summary Completed 07/10/2018 Patient Education: Back Pain Completed 07/10/2018 Visit Plan: Sinusitis - Pt has acute infection - pain in face, maxillary region, Pt informed to use decongestant, RX given to patient, sinus rinses also recommended. Call if symptoms do not show improvement. 05/28/2018 Appointment: Shahida Manzo WPtel: [phone] (30 min) Complex 05/28/2018 Patient Education: Patient [...] acute concerns. 02/07/2018 Appointment: Isabelle Orozco WPtel: [address] [place], [place] [phone] (15 min) Moderate 02/07/2018 Patient Education: Patient [...] from CPAP-improved sleep, less fatigue 01/19/2018 Appointment: Sahhida Manzo WPtel: [phone] [facility] [place] [address] (15 min) Moderate 01/19/2018 Patient Education: Patient [...] surrogate. 11/23/2017 Appointment: Isabelle Orozco WPtel: [phone] [facility] [facility] - Annual Wellness Visit 11/23/2017 Patient Education: [...] show improvement. 09/12/2017 Appointment: Isabelle Orozco WPtel: [facility] (15 min) Moderate 09/12/2017 Patient Education: Patient [...] allergy spray. 07/25/2017 Appointment: Isabelle Orozco WPtel: [facility] (30 min) Complex 07/25/2017 Patient Education: Patient [...] are available 06/27/2017 Appointment: Shahida Manzo WPtel: [phone] (15 min) Moderate 06/27/2017 Patient Education: Patient [...] not improving. 05/08/2017 Appointment: Shahida Manzo WPtel: [address] [place], [place] [phone] (15 min) Moderate 05/08/2017 Patient Education: Patient [...] show improvement. 03/14/2017 Appointment: Shahida Manzo WPtel: [phone] (15 min) Moderate 03/14/2017 Patient Education: Patient Medication Summary Completed 03/14/2017 Appointment: Shahida Manzo WPtel: [phone] (15 min) Moderate 02/21/2017 Visit Plan: Abdominal [...] improving. 02/20/2017 Appointment: Isabelle Orozco WPtel: [phone] [facility] (30 min) Complex 02/20/2017 Patient Education: Patient [...] use 02/06/2017 Appointment: Melba Goldman WPtel: [phone] [facility] (15 min) Moderate 02/06/2017 Patient Education: [...] patient. 12/05/2016 Appointment: [phone] [facility] 12/05/2016 Patient Education: Patient Medication Summary Completed 12/05/2016 Visit Plan: Sinusitis - Pt has acute infection - pain in face, maxillary region, Pt informed to use decongestant, RX given to patient, sinus rinses also recommended. Call if symptoms do not show improvement. Dysuria- culture urine 11/28/2016 Appointment: Shahida Manzo WPtel: [phone] (15 min) Moderate 11/28/2016 Patient Education: Patient [...] of control. 11/07/2016 Appointment: Isabelle Orozco WPtel: [address] [place], [place] [id number] [place] [address] - Annual Wellness Visit 11/07/2016 Patient Education: [...] allergy spray. 08/15/2016 Appointment: Isabelle Orozco WPtel: [facility] (15 min) Moderate 08/15/2016 Patient Education: Patient [...] pain use. 06/07/2016 Appointment: Shahida Manzo WPtel: [phone] [phone] (10 min) Simple 06/07/2016 Patient Education: Patient [...] office today 03/14/2016 Appointment: Shahida Manzo WPtel: [phone] (15 min) Moderate 03/14/2016 Patient Education: Patient Medication Summary Completed 03/14/2016 Care Plan: COMPLETE CBC AUTOMATED LOINC : 55119-9 Pending 03/14/2016 Visit Plan: Cellulitis - The patient was instructed in appropriate wound care. The patient was instructed to use the antibiotic ointment as per RX. The patient is to call for any change in symptoms, increase in size of the lesion, increase in pain. 02/22/2016 Appointment: Isabelle Orozco WPtel: [phone] [facility] (15 min) Moderate 02/22/2016 Patient Education: Patient [...] dr. dai 11/24/2015 Appointment: Melba Goldman WPtel: [address] [place], [place] [address] (30 min) [facility] 11/24/2015 Patient Education: Patient Medication Summary Completed 11/24/2015 Patient Education: Obesity Completed 11/24/2015 Patient Education: Hypertension Completed 11/24/2015 Patient Education: .Cervicalgia Neck Pain Completed 11/24/2015 Care Plan: Referral Order SNOMED-CT : [id number] Ordered 11/24/2015 Visit Plan: Acute Migraine - [...] to monitor 06/11/2015 Appointment: Shahida Manzo WPtel: [address] [place], [place] [phone] (15 min) Moderate 06/11/2015 Patient Education: Patient [...] OFFICE Sleep apnea-patient needs new CPAP-will contact [facility] Pt reports that she uses her [...] OFFICE Sleep apnea-patient needs new CPAP-will contact [facility] Pt reports that she uses [...] OFFICE Sleep apnea-patient needs new CPAP-will contact [facility] 03/19/2015 Appointment: (15 min) Moderate 03/19/2015 [...] Patient Medication Summary Completed 01/07/2015 Patient Education: [facility] - Saving AutoInj - 18+ - Dynamic [...] areas dry Exposure to scabies-RX sent to [facility] pharmacy. 03/07/2014 Appointment: Melba Goldman WPtel: [phone] [facility] [place] rash 03/07/2014 Patient Education: Patient [...] change in blood pressure readings at home. Bcdxxuu-rneeaufpfbs-epjksluo duragesic patch-appt with Dr Ortiz for pain management 11/21/2013 Appointment: Shahida Manzo WPtel: [address] [place], [place] [phone] Follow up 11/21/2013 Patient Education: Patient Medication Summary Completed 11/21/2013 Patient Education: Hypertension Completed 11/21/2013 Patient Education: .Cervicalgia Neck Pain Completed 11/21/2013 Appointment: Melba Goldman WPtel: [address] [place], [place] [phone] Other 11/19/2013 Appointment: Melba Goldman WPtel: [address] [place], [place] [phone] Follow up 11/06/2013 Appointment: Melba Goldman WPtel: [address] [place], [place] [phone] Lab Draw 10/15/2013 Patient Education: Patient Medication [...] AT BEDTIME 09/24/2013 Appointment: Shahida Manzo WPtel: [phone] Other 09/24/2013 Patient Education: Patient Medication Summary Completed 09/24/2013 Visit Plan: Paronychia/Cellulitis - continue with oral antibiotics as previously directed, return to clinic as previously directed, call for acute change in symptoms, worsening redness, warmth, discharge. 09/19/2013 Appointment: Melba Goldman WPtel: [phone] [facility] [place] Other 09/19/2013 Patient Education: Patient Medication Summary Completed 09/19/2013 Visit Plan: Conjunctivitis - rx for eye drops/lube sent electronically to the patient's pharmacy. The patient has been instructed to cleanse affected eye with warm washcloth, then place medication into affected eye four times daily. Thrush-refill nystatin-call if symptoms do not resolve 08/05/2013 Appointment: Shahida Manzo WPtel: [phone] [phone] [place] Sick 08/05/2013 Patient Education: Patient Medication [...] show improvement. 06/03/2013 Appointment: Melba Goldman WPtel: [facility] Follow up 06/03/2013 Patient Education: Patient Medication Summary Completed 06/03/2013 Patient Education: Hypertension Completed 06/03/2013 Appointment: Melba Goldman WPtel: [facility] [place] Nurse Visit 05/13/2013 Patient Education: [...] control. 05/07/2013 Appointment: Mel[facility] Goldman [facility]el: [phone] [facility] [place] Follow up 05/07/2013 Patient Education: Patient Medication Summary Completed 05/07/2013 Patient Education: Hypertension Completed 05/07/2013 Patient Education: Patient Medication Summary Completed 04/30/2013 Patient Education: Hypertension Completed 04/30/2013 Visit Plan: Arthritis- occasionally uncontrolled symptoms- recommend pt to take antiinflammatory as directed for pain control. Use tylenol for break through pain symptoms. 12/03/2012 Appointment: Melba Goldman WPtel: [phone] [facility] Follow up 12/03/2012 Patient Education: Patient [...] resolve 09/24/2012 Appointment: Shahida Manzo WPtel: [phone] [phone] [place] [address] 09/24/2012 Patient Education: Patient Medication Summary Completed [...] with diflucan 09/10/2012 Appointment: Melba Goldman WPtel: [facility] Follow up 09/10/2012 Patient Education: Patient [...] pain symptoms. 08/08/2012 Appointment: Shahida Manzo WPtel: [phone] [place] [phone] [place] [address] Follow up 08/08/2012 Patient Education: Patient Medication Summary Completed 08/08/2012 Patient Education: Patient Medication Summary Completed 08/07/2012 Patient Education: Hypertension Completed 08/07/2012 Appointment: Melba Goldman WPtel: [facility] [address] Lab Draw 02/16/2012 Patient Education: Patient [...] Needs labs. 02/15/2012 Appointment: Melba Goldman WPtel: [phone] [facility] [place] Other 02/15/2012 Patient Education: Patient Medication Summary Completed 02/15/2012 Visit Plan: Abdominal pain - ultrasound tomorrow AM nothing to eat before the ultrasound from 11pm tonight bland diet. Nausea - worse with fatty foods, recommended low fat/bland diet, call if symptoms worsening. 11/10/2011 Appointment: Melba Goldman WPtel: [phone] [facility] Other 11/10/2011 Patient Education: Patient Medication [...] stools. 08/01/2011 Appointment: Mel[facility]el[phone] Other 08/01/2011 Patient Education: Patient Medication Summary Completed 08/01/2011 Patient Education: High Blood Pressure: Essential Hypertension Completed 08/01/2011 Visit Plan: Sinusitis - Pt has acute infection - pain in face, maxillary region, Pt informed to use decongestant, RX given to patient, sinus rinses also recommended. Call if symptoms do not show improvement. Cough- kishore zurita 07/14/2011 Appointment: Shahida Manzo WPtel: [phone] [phone] Other 07/14/2011 Patient Education: Patient Medication Summary [...] the office. 05/23/2011 Appointment: Shahida Manzo WPtel: [address] [place] [address] Other 05/23/2011 Patient Education: Patient Medication Summary [...] cough med 05/03/2011 Appointment: Shahida Manzo WPtel: [address] [place] [address] [place] Other 05/03/2011 Patient Education: Patient Medication [...] her symptoms. 04/25/2011 Appointment: Shahida Manzo WPtel: [phone] Other 04/25/2011 Patient Education: Patient Medication Summary [...] OFFICE Sleep apnea-patient needs new CPAP-will contact [facility] patient Pt reports that she uses her [...] OFFICE Sleep apnea-patient needs new CPAP-will contact [facility] Pt reports that she uses her [...] OFFICE Sleep apnea-patient needs new CPAP-will contact [facility] LOSARTAN 50MG DAILY MONITOR BLOOD [...] call for acute concerns. Hyperlipidemia-check fasting labs Rucbzrfuusefka-byjzqto-xyhyk labs LOSARTAN 50MG DAILY MONITOR BLOOD PRESSURE [...] call for acute concerns. Hyperlipidemia-check fasting labs Edrzkoxcuqyaag-cmdoxac-knczp labs . Sinusitis - Pt has acute [...] not show improvement. Gentamicin nasal spray to [facility] Increase prilosec to twice daily . Sinusitis [...] areas dry Exposure to scabies-RX sent to [facility] pharmacy. rocephin/kenalog . Sinusitis - Pt [...] change in blood pressure readings at home. Mdhppch-vhjjwocsufr-rwreajww duragesic patch-appt with Dr Ortiz for pain [...]
[2019-03-08 09:45] VITALS: BP 107/58
[2019-03-08 09:50] VITALS: BP 104/59
[2019-03-08 09:55] VITALS: BP 125/59
--- OUTSIDE RECORDS SUMMARY | 2019-03-08 09:57 | XMS REPORT | CCD ---
Author Author [facility] Address [address] [place] [address] Phone Care Team Providers Care Operator Maintainer Name Role Phone PP Unavailable CCM Unavailable Summary Purpose Interface Exchange Insurance Providers Payer name Policy type / Coverage type Covered libertarian ID Effective Begin Date Effective End Date [employer] Medicare Part B [id number] Unknown Family history Son Diagnosis Age At Onset Crohn's disease Unknown Brother Diagnosis Age At Onset Cardiovascular disease Unknown Mother Diagnosis Age At Onset Hypertension Unknown Father Diagnosis Age At Onset Cardiovascular disease Unknown Social History Social History Element Codes Description Effective Dates Marital status Unknown 04/22/2011 Number of children Unknown 3 1 son -Crohns 04/22/[address]: 899566876 Nonsmoker 04/22/2011 Allergies, Adverse Reactions, Alerts Substance [...] Instructions mupirocin 2 % topical ointment RxNorm: 459585 1 Application TOP BID 02/20/2019 No Stop Date Active doxycycline hyclate 100 mg capsule RxNorm: 0293393 1 Capsule(s) PO BID 02/20/2019 03/01/2019 Active ceftriaxone 1 gram solution for injection RxNorm: 1634782 Inj 02/20/2019 02/20/2019 Inactive piroxicam 20 mg capsule RxNorm: 978224 TAKE ONE CAPSULE BY MOUTH DAILY 02/01/2019 05/31/2019 Active hydrochlorothiazide 25 mg tablet RxNorm: 389279 Tablet(s) TAKE ONE TABLET BY MOUTH DAILY 01/29/2019 10/25/2019 Active hydrocodone 10 mg-acetaminophen 325 mg tablet RxNorm: 654484 Tablet(s) PO TAKE ONE TO TWO TABLETS BY MOUTH EVERY 6 HOURS NEEDED FOR PAIN 01/17/2019 01/31/2019 Inactive trazodone 50 mg tablet RxNorm: 286701 TAKE ONE AND ONE-HALF (1 1/2) TABLETS BY MOUTH AT BEDTIME. MAY INCREASE TO 2 TABLETS AT BEDTIME NEEDED 12/13/2018 04/01/2019 Active losartan 100 mg tablet RxNorm: 390800 1 Tablet(s) PO daily 11/13/2018 05/11/2019 Active hydrocodone 10 mg-acetaminophen 325 mg tablet RxNorm: 006653 Tablet(s) PO TAKE ONE TO TWO TABLETS BY MOUTH EVERY 6 HOURS NEEDED FOR PAIN 11/13/2018 11/27/2018 Inactive Synthroid 112 mcg tablet RxNorm: 475066 1 Tablet(s) PO daily 11/01/2018 04/29/2019 Active Brand name only! Dosage change! Synthroid 112 mcg tablet RxNorm: 138932 1 Tablet(s) PO daily 11/01/2018 10/31/2018 Inactive Brand name only! Dosage change! losartan 50 mg tablet RxNorm: 847292 1 Tablet(s) PO daily 10/30/2018 11/12/2018 Inactive Tamiflu 75 mg capsule RxNorm: 550220 1 Capsule(s) PO daily 10/30/2018 11/08/2018 Inactive Synthroid 100 mcg tablet RxNorm: 979891 1 Tablet(s) PO daily 10/30/2018 10/31/2018 Inactive Brand name only! Lexapro 20 mg tablet RxNorm: 471326 TAKE ONE AND ONE-HALF TABLET BY MOUTH DAILY 10/23/2018 10/17/2019 Active alprazolam 0.25 mg tablet RxNorm: 905365 1 Tablet(s) PO TID as needed 10/10/2018 01/07/2019 Inactive polymyxin B sulfate 10,000 unit-trimethoprim 1 mg/mL eye drops RxNorm: 337573 2 Drop(s) ophthalmic (eye) QID 10/08/2018 10/14/2018 Inactive hydrocodone 10 mg-acetaminophen 325 mg tablet RxNorm: 034283 Tablet(s) PO TAKE ONE TO TWO TABLETS BY MOUTH EVERY 6 HOURS NEEDED FOR PAIN 09/11/2018 09/25/2018 Inactive piroxicam 20 mg capsule RxNorm: 028323 TAKE ONE CAPSULE BY MOUTH DAILY 08/09/2018 01/05/2019 Inactive trazodone 50 mg tablet RxNorm: 791007 TAKE ONE AND ONE-HALF (1 1/2) TABLET BY MOUTH AT BEDTIME. MAY INCREASE TO 2 TABLETS AT BEDTIME NEEDED 08/02/2018 11/19/2018 Inactive Nexium 40 mg capsule,delayed release RxNorm: 015378 TAKE ONE CAPSULE BY MOUTH TWICE A DAY 07/23/2018 11/19/2018 Inactive Bystolic 5 mg tablet RxNorm: 856022 1 Tablet(s) PO daily to take with 10 mg daily to equal 15mg daily 07/17/2018 10/29/2018 Inactive alprazolam 0.25 mg tablet RxNorm: 434550 1 Tablet(s) PO TID as needed 07/16/2018 10/29/2018 Inactive hydrocodone 10 mg-acetaminophen 325 mg tablet RxNorm: 465574 Tablet(s) PO TAKE ONE TO TWO TABLETS BY MOUTH EVERY 6 HOURS NEEDED FOR PAIN 07/10/2018 07/24/2018 Inactive prednisone 20 mg tablet RxNorm: 389691 1 Tablet(s) PO BID 07/10/2018 07/14/2018 Inactive Phenergan with Codeine Syrup RxNorm: 5-10 Milliliter(s) PO Q6 PRN 06/28/2018 01/28/2019 Inactive prednisone 20 mg tablet RxNorm: 794056 2 Tablet(s) PO daily 05/31/2018 06/04/2018 Inactive prednisone 20 mg tablet RxNorm: 756311 2 Tablet(s) PO daily 05/31/2018 05/30/2018 Inactive ceftriaxone 500 mg solution for injection RxNorm: 5195689 Inj 05/28/2018 05/28/2018 Inactive doxycycline hyclate 100 mg tablet RxNorm: 6685939 1 Tablet(s) PO BID 05/28/2018 06/06/2018 Inactive Kenalog 40 mg/mL suspension for injection RxNorm: 0076632 Milliliter(s) Inj 05/28/2018 05/28/2018 Inactive hydrocodone 10 mg-acetaminophen 325 mg tablet RxNorm: 316938 Tablet(s) PO TAKE ONE TO TWO TABLETS BY MOUTH EVERY 6 HOURS NEEDED FOR PAIN 05/09/2018 05/23/2018 Inactive alprazolam 0.25 mg tablet RxNorm: 645323 1 Tablet(s) PO daily as needed 04/25/2018 07/15/2018 Inactive Bystolic 10 mg tablet RxNorm: 941892 TAKE ONE TABLET BY MOUTH DAILY 04/16/2018 09/12/2018 Inactive hydrocodone 10 mg-acetaminophen 325 mg tablet RxNorm: 694507 Tablet(s) PO TAKE ONE TO TWO TABLETS BY MOUTH EVERY 6 HOURS NEEDED FOR PAIN 03/06/2018 03/20/2018 Inactive trazodone 50 mg tablet RxNorm: 059541 TAKE ONE AND ONE-HALF (1 1/2) TABLET BY MOUTH AT BEDTIME. MAY INCREASE TO 2 TABLETS AT BEDTIME NEEDED 02/23/2018 06/12/2018 Inactive mupirocin 2 % topical ointment RxNorm: 738741 1 TOP BID 02/09/2018 05/27/2018 Inactive Zofran 4 mg tablet RxNorm: 663979 1 Tablet(s) PO TID as needed 02/08/2018 No Stop Date Active Keflex 500 mg capsule RxNorm: 342864 1 Capsule(s) PO TID 02/07/2018 02/13/2018 Inactive alprazolam 0.25 mg tablet RxNorm: 238576 1 Tablet(s) PO daily as needed 01/24/2018 07/09/2018 Inactive hydrocodone 10 mg-acetaminophen 325 mg tablet RxNorm: 591726 Tablet(s) PO TAKE ONE TO TWO TABLETS BY MOUTH EVERY 6 HOURS NEEDED FOR PAIN 01/19/2018 02/02/2018 Inactive hydrochlorothiazide 25 mg tablet RxNorm: 764982 Tablet(s) TAKE ONE TABLET BY MOUTH DAILY 01/19/2018 01/19/2018 Inactive Kenalog 40 mg/mL suspension for injection RxNorm: 1637781 1 Milliliter(s) Inj 01/19/2018 01/19/2018 Inactive piroxicam 20 mg capsule RxNorm: 944697 1 Capsule(s) PO daily 01/19/2018 07/17/2018 Inactive D/C ORDER FOR HCTZ ceftriaxone 500 mg solution for injection RxNorm: 9780405 500 Milligram(s) Inj 01/19/2018 01/19/2018 Inactive Nexium 40 mg capsule,delayed release RxNorm: 004337 TAKE ONE CAPSULE BY MOUTH TWICE A DAY 01/18/2018 04/17/2018 Inactive Nexium 40 mg capsule,delayed release RxNorm: 368923 TAKE ONE CAPSULE BY MOUTH TWICE A DAY 01/15/2018 04/14/2018 Inactive ciprofloxacin 0.3 % eye drops RxNorm: 197685 2 Drop(s) ophthalmic (eye) Q2H while awake x 2 days, then Q4H x 5 days 11/23/2017 05/27/2018 Inactive Keflex 500 mg capsule RxNorm: 635351 1 Capsule(s) PO TID 11/23/2017 11/29/2017 Inactive hydrocodone 10 mg-acetaminophen 325 mg tablet RxNorm: 258228 Tablet(s) PO TAKE ONE TO TWO TABLETS BY MOUTH EVERY 6 HOURS NEEDED FOR PAIN 10/30/2017 11/13/2017 Inactive Augmentin 500 mg-125 mg tablet RxNorm: 544601 1 Tablet(s) PO TID 10/27/2017 11/05/2017 Inactive alprazolam 0.25 mg tablet RxNorm: 146343 1 Tablet(s) PO daily as needed 10/26/2017 04/24/2018 Inactive trazodone 50 mg tablet RxNorm: 926696 TAKE ONE AND ONE-HALF (1 1/2) TABLET BY MOUTH AT BEDTIME. MAY INCREASE TO 2 TABLETS AT BEDTIME NEEDED 09/25/2017 02/03/2018 Inactive Lexapro 20 mg tablet RxNorm: 433291 TAKE ONE AND ONE-HALF TABLET BY MOUTH DAILY 09/15/2017 09/09/2018 Inactive Flagyl 500 mg tablet RxNorm: 209711 1 Tablet(s) PO TID 09/12/2017 09/21/2017 Inactive promethazine 25 mg tablet RxNorm: 980680 1 Tablet(s) PO TID as needed nausea and vomitting THIS WILL MAKE YOU SLEEPY 09/12/2017 11/08/2017 Inactive Keflex 500 mg capsule RxNorm: 202757 1 Capsule(s) PO QID 08/25/2017 08/31/2017 Inactive [SAVINGS FOR UNINSURED PATIENTS -- [id number], PCN: [id number], Group: [id number], ID# [id number], Process claim through [employer], for questions: . THIS IS NOT INSURANCE.] alprazolam 0.25 mg tablet RxNorm: 250288 1 Tablet(s) PO daily as needed 07/31/2017 04/24/2018 Inactive prednisone 20 mg tablet RxNorm: 806688 2 Tablet(s) PO daily 07/25/2017 07/29/2017 Inactive Augmentin 500 mg-125 mg tablet RxNorm: 629320 1 Tablet(s) PO TID 07/25/2017 08/03/2017 Inactive trazodone 50 mg tablet RxNorm: 123596 TAKE ONE AND ONE-HALF (1 1/2) TABLET BY MOUTH AT BEDTIME. MAY INCREASE TO 2 TABLETS AT BEDTIME NEEDED 06/30/2017 09/03/2017 Inactive Bystolic 10 mg tablet RxNorm: 501577 TAKE ONE TABLET BY MOUTH DAILY 06/30/2017 2017 Inactive hydrochlorothiazide 25 mg tablet RxNorm: 892243 TAKE ONE TABLET BY MOUTH DAILY 06/30/2017 01/18/2018 Inactive Flagyl 500 mg tablet RxNorm: 654264 1 Tablet(s) PO TID 06/27/2017 07/03/2017 Inactive Phenergan with Codeine Syrup RxNorm: 5-10 Milliliter(s) PO Q6 PRN 06/27/2017 11/15/2017 Inactive Levaquin 500 mg tablet RxNorm: 485202 1 Tablet(s) PO daily 06/27/2017 07/03/2017 Inactive Kenalog 40 mg/mL suspension for injection RxNorm: 8639457 1 Milliliter(s) Inj 06/27/2017 06/27/2017 Inactive Nexium 40 mg capsule,delayed release RxNorm: 448972 1 Capsule(s) PO BID TAKE ONE CAPSULE BY MOUTH BID 05/22/2017 09/18/2017 Inactive Nexium 40 mg capsule,delayed release RxNorm: 314078 1 Capsule(s) PO BID TAKE ONE CAPSULE BY MOUTH BID 05/22/2017 05/21/2017 Inactive hydrocodone 10 mg-acetaminophen 325 mg tablet RxNorm: 068266 Tablet(s) PO TAKE ONE TO TWO TABLETS BY MOUTH EVERY 6 HOURS NEEDED FOR PAIN 05/17/2017 06/15/2017 Inactive Nexium 40 mg capsule,delayed release RxNorm: 123998 Capsule(s) TAKE ONE CAPSULE BY MOUTH BID 05/17/2017 05/21/2017 Inactive alprazolam 0.25 mg tablet RxNorm: 436340 1 Tablet(s) PO daily as needed 05/03/2017 07/01/2017 Inactive Levaquin 500 mg tablet RxNorm: 371172 1 Tablet(s) PO daily 04/20/2017 04/26/2017 Inactive clotrimazole 1 % topical cream RxNorm: 957130 1 Application TOP BID 04/20/2017 11/07/2017 Inactive Kenalog 40 mg/mL suspension for injection RxNorm: 5806123 Milliliter(s) Inj 04/20/2017 04/20/2017 Inactive nystatin 100,000 unit/gram topical powder RxNorm: 617915 1 Gram(s) APPLY TOPICALLY TWO TIMES A DAY 04/10/2017 07/08/2017 Inactive trazodone 50 mg tablet RxNorm: 924831 TAKE ONE AND ONE-HALF (1 1/2) TABLET BY MOUTH AT BEDTIME. MAY INCREASE TO 2 TABLETS AT BEDTIME NEEDED 03/28/2017 06/23/2017 Inactive Augmentin 875 mg-125 mg tablet RxNorm: 017322 1 Tablet(s) PO BID 03/14/2017 03/20/2017 Inactive Kenalog 40 mg/mL suspension for injection RxNorm: 5578816 1 Milliliter(s) Inj 03/14/2017 03/14/2017 Inactive Lexapro 20 mg tablet RxNorm: 049457 1.5 Tablet(s) PO daily 03/08/2017 03/07/2017 Inactive Lexapro 20 mg tablet RxNorm: 940279 1.5 Tablet(s) PO daily 03/08/2017 07/05/2017 Inactive alprazolam 0.25 mg tablet RxNorm: 949163 1 Tablet(s) PO daily as needed 02/23/2017 04/23/2017 Inactive (Response to an electronic controlled substance refill request - RxReferenceNumber: [id number]) Flagyl 500 mg tablet RxNorm: 713864 1 Tablet(s) PO TID 02/20/2017 03/01/2017 Inactive promethazine 25 mg tablet RxNorm: 992081 1 Tablet(s) PO TID as needed nausea 02/20/2017 03/01/2017 Inactive Cipro 500 mg tablet RxNorm: 345515 1 Tablet(s) PO BID 02/20/2017 03/01/2017 Inactive Flagyl 500 mg tablet RxNorm: 067960 1 Tablet(s) PO TID 02/09/2017 02/15/2017 Inactive Trintellix 10 mg tablet RxNorm: 9218743 1 Tablet(s) PO QAM 02/06/2017 03/07/2017 Inactive Efudex 5 % topical cream RxNorm: 588966 1 Application TOP BID use on skin spot on nose 02/06/2017 02/15/2017 Inactive Bystolic 10 mg tablet RxNorm: 653341 TAKE ONE TABLET BY MOUTH DAILY 02/03/2017 06/02/2017 Inactive Imitrex 50 mg tablet RxNorm: 051447 TAKE ONE TABLET BY MOUTH EVERY 8 HOURS NEEDED MAY REPEAT IN 1 HOUR OF INITIAL DOSE. DISCONTINUE FIORICET 12/22/2016 02/19/2017 Inactive Nexium 40 mg capsule,delayed release RxNorm: 564886 TAKE ONE CAPSULE BY MOUTH EVERY DAY 12/21/2016 05/16/2017 Inactive Lexapro 20 mg tablet RxNorm: 586133 Tablet(s) TAKE ONE TABLET BY MOUTH DAILY 12/05/2016 02/05/2017 Inactive Augmentin 875 mg-125 mg tablet RxNorm: 792054 1 Tablet(s) PO BID 11/28/2016 12/04/2016 Inactive ceftriaxone 500 mg solution for injection RxNorm: 1840594 1 Milliliter(s) Inj 11/28/2016 11/28/2016 Inactive hydrocodone 10 mg-acetaminophen 325 mg tablet RxNorm: 920034 Tablet(s) PO TAKE ONE TO TWO TABLETS BY MOUTH EVERY 6 HOURS NEEDED FOR PAIN 11/28/2016 05/16/2017 Inactive (Appended: Controlled substance eRx refill - RxReferenceNumber: [id number]) prednisone 20 mg tablet RxNorm: 469785 2 Tablet(s) PO daily 11/28/2016 12/02/2016 Inactive trazodone 50 mg tablet RxNorm: 257766 Tablet(s) TAKE 1 AND 1/2 TABLETS EVERY NIGHT AT BEDTIME , MAY INCREASE TO 2 TABLETS AT BEDTIME NEEDED 11/21/2016 11/20/2016 Inactive Synthroid 100 mcg tablet RxNorm: 085079 1 Tablet(s) PO daily 11/21/2016 05/19/2017 Inactive Brand name only! trazodone 50 mg tablet RxNorm: 309403 TAKE 1 AND 1/2 TABLETS EVERY NIGHT AT BEDTIME , MAY INCREASE TO 2 TABLETS AT BEDTIME NEEDED 11/21/2016 08/01/2018 Inactive Synthroid 100 mcg tablet RxNorm: 537393 1 Tablet(s) PO daily TAKE ONE TABLET BY MOUTH DAILY 11/08/2016 11/20/2016 Inactive ceftriaxone 500 mg solution for injection RxNorm: 9515809 Inj 11/07/2016 11/07/2016 Inactive Kenalog 40 mg/mL suspension for injection RxNorm: 8818969 Milliliter(s) Inj 11/07/2016 11/07/2016 Inactive Xanax 0.25 mg tablet RxNorm: 238735 1 Tablet(s) PO daily as needed 10/31/2016 05/02/2017 Inactive alprazolam 0.25 mg tablet RxNorm: 373344 1 Tablet(s) PO daily as needed 10/21/2016 12/18/2016 Inactive (Response to an electronic controlled substance refill request - RxReferenceNumber: [id number]) hydrochlorothiazide 25 mg tablet RxNorm: 882912 TAKE ONE TABLET BY MOUTH DAILY 10/11/2016 04/08/2017 Inactive Xanax 0.25 mg tablet RxNorm: 783296 1 Tablet(s) PO daily as needed 08/23/2016 10/19/2016 Inactive Flonase Allergy Relief 50 mcg/actuation nasal spray,suspension RxNorm: 8176264 1 [place] NASAL daily 08/15/2016 No Stop Date Active amoxicillin 500 mg capsule RxNorm: 248730 1 Capsule(s) PO TID 08/15/2016 08/24/2016 Inactive Bystolic 10 mg tablet RxNorm: 867598 TAKE ONE TABLET BY MOUTH DAILY 08/01/2016 12/28/2016 Inactive trazodone 50 mg tablet RxNorm: 271068 TAKE 1 AND 1/2 TABLETS EVERY NIGHT AT BEDTIME , MAY INCREASE TO 2 TABLETS AT BEDTIME NEEDED 07/25/2016 11/11/2016 Inactive alprazolam 0.25 mg tablet RxNorm: 721883 1 Tablet(s) PO daily as needed 07/25/2016 08/22/2016 Inactive (Response to an electronic controlled substance refill request - RxReferenceNumber: [id number]) Imitrex 50 mg tablet RxNorm: 272160 1 Tablet(s) PO Q8 as needed may repeat x1 dose in 1 hour of inital dose. 07/13/2016 No Stop Date Active Lexapro 20 mg tablet RxNorm: 825145 TAKE 1/2 TABLET BY MOUTH DAILY FOR 10 DAYS, THEN TAKE ONE TABLET BY MOUTH DAILY 06/27/2016 11/23/2016 Inactive Synthroid 100 mcg tablet RxNorm: 769544 TAKE ONE TABLET BY MOUTH DAILY 06/20/2016 11/07/2016 Inactive Augmentin 500 mg-125 mg tablet RxNorm: 271935 1 Tablet(s) PO TID 06/07/2016 06/13/2016 Inactive hydrocodone 10 mg-acetaminophen 325 mg tablet RxNorm: 203684 Tablet(s) PO TAKE ONE TO TWO TABLETS BY MOUTH EVERY 6 HOURS NEEDED FOR PAIN 06/07/2016 11/27/2016 Inactive (Appended: Controlled substance eRx refill - RxReferenceNumber: [id number]) hydrochlorothiazide 25 mg tablet RxNorm: 011054 TAKE ONE TABLET BY MOUTH DAILY 03/14/2016 09/09/2016 Inactive Edarbi 40 mg tablet RxNorm: 6239655 1 Tablet(s) PO daily 03/14/2016 06/06/2016 Inactive trazodone 50 mg tablet RxNorm: 207607 Tablet(s) TAKE 1 AND 1/2 TABLET AT BEDTIME. MAY INCREASE TO 2 TABLETS IF NECESSARY 02/25/2016 07/05/2016 Inactive Imitrex 50 mg tablet RxNorm: 924702 1 Tablet(s) PO Q8 as needed may repeat x1 dose in 1 hour of inital dose. 02/25/2016 07/12/2016 Inactive dc fioricet Xanax 0.25 mg tablet RxNorm: 614167 1 Tablet(s) PO daily as needed 02/24/2016 07/21/2016 Inactive mupirocin 2 % topical ointment RxNorm: 360077 1 TOP BID 02/22/2016 11/08/2017 Inactive Bactrim DS 800 mg-160 mg tablet RxNorm: 918994 1 Tablet(s) PO BID 02/22/2016 03/02/2016 Inactive Fioricet 50 mg-325 mg-40 mg tablet RxNorm: 765108 Tablet(s) TAKE ONE TABLET BY MOUTH EVERY 4 HOURS NEEDED FOR headache 02/12/2016 02/24/2016 Inactive (Response to an electronic controlled substance refill request - RxReferenceNumber: [id number]) Fioricet 50 mg-325 mg-40 mg tablet RxNorm: 469314 Tablet(s) TAKE ONE TABLET BY MOUTH EVERY 4 HOURS NEEDED FOR headache 02/12/2016 02/11/2016 Inactive (Response to an electronic controlled substance refill request - RxReferenceNumber: [id number]) Nexium 40 mg capsule,delayed release RxNorm: 795805 TAKE ONE CAPSULE BY MOUTH EVERY DAY 02/01/2016 10/27/2016 Inactive Bystolic 10 mg tablet RxNorm: 055099 Tablet(s) TAKE ONE TABLET BY MOUTH DAILY 01/06/2016 07/03/2016 Inactive Xanax 0.25 mg tablet RxNorm: 293878 1 Tablet(s) PO daily as needed 12/28/2015 02/23/2016 Inactive Levaquin 500 mg tablet RxNorm: 959929 1 Tablet(s) PO daily take a probiotic daily 12/14/2015 02/11/2016 Inactive Levaquin 500 mg tablet RxNorm: 177569 1 Tablet(s) PO daily take a probiotic daily 12/14/2015 12/13/2015 Inactive prednisone 20 mg tablet RxNorm: 584173 1 Tablet(s) PO BID 12/07/2015 12/13/2015 Inactive Augmentin 875 mg-125 mg tablet RxNorm: 786076 1 Tablet(s) PO BID 12/07/2015 12/13/2015 Inactive ceftriaxone 500 mg solution for injection RxNorm: 1640888 Inj 12/07/2015 12/07/2015 Inactive Phenergan with Codeine Syrup RxNorm: 5-10 Milliliter(s) PO Q6 PRN 12/07/2015 06/26/2017 Inactive alprazolam 0.25 mg tablet RxNorm: 521572 1 Tablet(s) PO daily as needed 11/27/2015 12/25/2015 Inactive (Response to an electronic controlled substance refill request - RxReferenceNumber: [id number]) trazodone 50 mg tablet RxNorm: 076113 TAKE 1 AND 1/2 TABLET AT BEDTIME FOR 2 WEEKS, MAY INCREASE TO 2 TABLETS IF NECESSARY AFTER THAT 11/26/2015 02/24/2016 Inactive ceftriaxone 500 mg solution for injection RxNorm: 1918726 Milliliter(s) Inj 11/24/2015 11/24/2015 Inactive prednisone 10 mg tablet RxNorm: 639267 3 Tablet(s) PO daily 11/24/2015 11/28/2015 Inactive cefdinir 300 mg capsule RxNorm: 639875 1 Capsule(s) PO BID 11/24/2015 11/30/2015 Inactive Kenalog 40 mg/mL suspension for injection RxNorm: 6369940 1 Milliliter(s) Inj 11/24/2015 11/24/2015 Inactive Lexapro 20 mg tablet RxNorm: 865256 TAKE 1/2 TABLET BY MOUTH DAILY FOR 10 DAYS, THEN TAKE ONE TABLET BY MOUTH DAILY 11/23/2015 05/20/2016 Inactive Lipitor 10 mg tablet RxNorm: 782754 Tablet(s) TAKE ONE TABLET BY MOUTH EVERY DAY 10/26/2015 11/06/2016 Inactive Norvasc 10 mg tablet RxNorm: 613150 Tablet(s) PO TAKE ONE TABLET BY MOUTH EVERY DAY 10/26/2015 01/18/2018 Inactive hydrochlorothiazide 25 mg tablet RxNorm: 469388 TAKE ONE TABLET BY MOUTH DAILY 10/20/2015 01/17/2016 Inactive promethazine 25 mg/mL injection solution RxNorm: 987874 Milliliter(s) Inj 08/27/2015 08/27/2015 Inactive ketorolac 60 mg/2 mL intramuscular solution RxNorm: 173534 Milliliter(s) IM 08/27/2015 08/27/2015 Inactive alprazolam 0.25 mg tablet RxNorm: 854060 1 Tablet(s) PO daily as needed 08/27/2015 10/25/2017 Inactive (Response to an electronic controlled substance refill request - RxReferenceNumber: [id number]) Lexapro 20 mg tablet RxNorm: 656195 TAKE 1/2 TABLET BY MOUTH DAILY FOR 10 DAYS, THEN TAKE ONE TABLET BY MOUTH DAILY 08/13/2015 11/10/2015 Inactive Flonase 50 mcg/actuation nasal spray,suspension RxNorm: 692525 PLACE 1 SPRAY IN EACH NOSTRIL DAILY 08/13/2015 02/08/2016 Inactive Augmentin 500 mg-125 mg tablet RxNorm: 934447 1 Tablet(s) PO TID 08/10/2015 08/16/2015 Inactive Kenalog 40 mg/mL suspension for injection RxNorm: 3733963 Milliliter(s) Inj 08/10/2015 08/10/2015 Inactive ceftriaxone 500 mg solution for injection RxNorm: 2807421 Inj 08/10/2015 08/10/2015 Inactive nystatin 100,000 unit/mL oral suspension RxNorm: 821232 4 Milliliter(s) PO QID 08/10/2015 08/16/2015 Inactive trazodone 50 mg tablet RxNorm: 854062 TAKE 1 AND 1/2 TABLET AT BEDTIME FOR 2 WEEKS, MAY INCREASE TO 2 TABLETS IF NECESSARY AFTER THAT 07/31/2015 11/25/2015 Inactive ceftriaxone 500 mg solution for injection RxNorm: 5971531 1 Milliliter(s) Inj 07/28/2015 07/28/2015 Inactive Bactrim DS 800 mg-160 mg tablet RxNorm: 727261 1 Tablet(s) PO BID 07/28/2015 08/06/2015 Inactive Bactroban 2 % topical ointment RxNorm: 952280 1 Application TOP BID 07/28/2015 08/06/2015 Inactive Diflucan 150 mg tablet RxNorm: 209282 1 Tablet(s) PO daily 06/11/2015 06/17/2015 Inactive clotrimazole 1 % topical cream RxNorm: 030433 1 Application TOP BID 06/11/2015 07/10/2015 Inactive Bystolic 10 mg tablet RxNorm: 535094 TAKE ONE TABLET BY MOUTH DAILY 06/08/2015 12/04/2015 Inactive alprazolam 0.25 mg tablet RxNorm: 045600 1 Tablet(s) PO daily as needed 06/01/2015 08/25/2015 Inactive (Response to an electronic controlled substance refill request - RxReferenceNumber: [id number]) Fioricet 50 mg-325 mg-40 mg tablet RxNorm: 795752 Tablet(s) TAKE ONE TABLET BY MOUTH EVERY 4 HOURS NEEDED FOR headache 05/28/2015 06/08/2015 Inactive (Response to an electronic controlled substance refill request - RxReferenceNumber: [id number]) trazodone 50 mg tablet RxNorm: 698108 TAKE 1 AND 1/2 TABLET AT BEDTIME FOR 2 WEEKS, MAY INCREASE TO 2 TABLETS IF NECESSARY AFTER THAT 05/25/2015 08/22/2015 Inactive trazodone 50 mg tablet RxNorm: 616202 TAKE 1 AND 1/2 TABLET AT BEDTIME FOR 2 WEEKS, MAY INCREASE TO 2 TABLETS IF NECESSARY AFTER THAT 05/25/2015 05/24/2015 Inactive Synthroid 100 mcg tablet RxNorm: 643684 TAKE ONE TABLET BY MOUTH DAILY 04/23/2015 01/17/2016 Inactive Lipitor 10 mg tablet RxNorm: 223984 TAKE ONE TABLET BY MOUTH EVERY DAY 04/23/2015 10/25/2015 Inactive Kenalog 40 mg/mL suspension for injection RxNorm: 5693250 Milliliter(s) Inj 03/19/2015 03/19/2015 Inactive Lexapro 20 mg tablet RxNorm: 192215 1 Tablet(s) PO daily 03/19/2015 07/16/2015 Inactive 1/2 tab daily x 10 days then 1 tab daily hydrocodone 10 mg-acetaminophen 325 mg tablet RxNorm: 806695 Tablet(s) PO TAKE ONE TO TWO TABLETS BY MOUTH EVERY 6 HOURS NEEDED FOR PAIN 03/19/2015 06/06/2016 Inactive (Appended: Controlled substance eRx refill - RxReferenceNumber: [id number]) Carafate 1 gram tablet RxNorm: 936397 1 Tablet(s) PO AC & HS 03/19/2015 06/16/2015 Inactive dissolve in water and take as a slurry hydrochlorothiazide 25 mg tablet RxNorm: 737449 1 Tablet(s) PO daily 03/12/2015 09/07/2015 Inactive Nexium 40 mg capsule,delayed release RxNorm: 844647 TAKE ONE CAPSULE BY MOUTH EVERY DAY 02/26/2015 12/22/2015 Inactive Cymbalta 60 mg capsule,delayed release RxNorm: 169937 TAKE ONE CAPSULE BY MOUTH TWICE A DAY 02/23/2015 03/18/2015 Inactive alprazolam 0.25 mg tablet RxNorm: 093954 1 Tablet(s) PO daily as needed 02/11/2015 05/10/2015 Inactive (Response to an electronic controlled substance refill request - RxReferenceNumber: [id number]) trazodone 50 mg tablet RxNorm: 638698 TAKE 1 AND 1/2 TABLET AT BEDTIME FOR 2 WEEKS, MAY INCREASE TO 2 TABLETS IF NECESSARY AFTER THAT 01/27/2015 05/24/2015 Inactive Augmentin 500 mg-125 mg tablet RxNorm: 402714 1 Tablet(s) PO TID 01/07/2015 01/13/2015 Inactive gentamicin 0.3 % eye drops RxNorm: 086081 3 Drop(s) OPH QID 01/07/2015 01/13/2015 Inactive [AttnRPh: Saving apply/adjudicate RxGRP:[id number] RxBIN:[id number] RxPCN: ID#:[id number]] scopolamine 1.5 mg transdermal 72 hour patch RxNorm: 753858 1 Patch TD q72 hours 01/07/2015 11/23/2015 Inactive Synthroid 100 mcg tablet RxNorm: 816328 TAKE ONE TABLET BY MOUTH ONCE A DAY 01/06/2015 04/22/2015 Inactive nystatin 100,000 unit/gram topical powder RxNorm: 969681 APPLY TOPICALLY TWO TIMES A DAY 12/18/2014 03/17/2015 Inactive alprazolam 0.25 mg tablet RxNorm: 099577 TAKE ONE TABLET BY MOUTH DAILY NEEDED 10/30/2014 11/28/2014 Inactive (Response to an electronic controlled substance refill request - RxReferenceNumber: [id number]) alprazolam 0.25 mg tablet RxNorm: 039490 Tablet(s) TAKE ONE TABLET BY MOUTH DAILY 10/30/2014 10/29/2014 Inactive (Response to an electronic controlled substance refill request - RxReferenceNumber: [id number]) Lipitor 10 mg tablet RxNorm: 134320 TAKE ONE TABLET BY MOUTH EVERY DAY 10/30/2014 02/26/2015 Inactive alprazolam 0.25 mg tablet RxNorm: 674021 TAKE ONE TABLET BY MOUTH DAILY 10/07/2014 10/29/2014 Inactive (Response to an electronic controlled substance refill request - RxReferenceNumber: [id number]) alprazolam 0.25 mg tablet RxNorm: 086546 TAKE ONE TABLET BY MOUTH DAILY 10/06/2014 10/07/2014 Inactive (Response to an electronic controlled substance refill request - RxReferenceNumber: [id number]) alprazolam 0.25 mg tablet RxNorm: 891696 Tablet(s) TAKE ONE TABLET BY MOUTH EVERY DAY NEEDED 09/30/2014 10/06/2014 Inactive (Response to an electronic controlled substance refill request - RxReferenceNumber: [id number]) Fioricet 50 mg-325 mg-40 mg tablet RxNorm: 990842 Tablet(s) TAKE ONE TABLET BY MOUTH EVERY 4 HOURS NEEDED FOR headache 09/29/2014 10/12/2014 Inactive (Response to an electronic controlled substance refill request - RxReferenceNumber: [id number]) Bystolic 10 mg tablet RxNorm: 986935 1 Tablet(s) PO daily TAKE ONE TABLET BY MOUTH EVERY DAY 09/29/2014 04/26/2015 Inactive Bystolic 5 mg tablet RxNorm: 081092 TAKE 1 AND 1/2 TABLETS ONCE DAILY 09/24/2014 09/23/2014 Inactive Bystolic 5 mg tablet RxNorm: 819444 Tablet(s) TAKE 1 AND 1/2 TABLETS ONCE DAILY 09/24/2014 09/18/2015 Inactive gentamicin 0.3 % eye drops RxNorm: 837529 3 Drop(s) OPH QID 09/23/2014 09/29/2014 Inactive trazodone 50 mg tablet RxNorm: 948885 TAKE 1 AND 1/2 TABLET AT BEDTIME FOR 2 WEEKS, MAY INCREASE TO 2 TABLETS IF NECESSARY AFTER THAT 09/22/2014 01/26/2015 Inactive Fioricet 50 mg-325 mg-40 mg tablet RxNorm: 129745 TAKE ONE TABLET BY MOUTH EVERY 4 HOURS NEEDED FOR PAIN 09/17/2014 09/28/2014 Inactive (Response to an electronic controlled substance refill request - RxReferenceNumber: [id number]) Duragesic 50 mcg/hr transdermal patch RxNorm: 022042 1 TD q72 hours 08/07/2014 01/06/2015 Inactive [SAVINGS FOR UNINSURED PATIENTS -- BIN:[id number], PCN: ASPROD1, Group: [facility], ID# [id number], Process claim through Eachbaby, for questions: . THIS IS NOT INSURANCE.] alprazolam 0.25 mg tablet RxNorm: 071086 TAKE ONE TABLET BY MOUTH EVERY DAY NEEDED 07/31/2014 08/29/2014 Inactive (Response to an electronic controlled substance refill request - RxReferenceNumber: [id number]) alprazolam 0.25 mg tablet RxNorm: 957048 1 Tablet(s) PO daily as needed TAKE ONE TABLET BY MOUTH EVERY DAY NEEDED 07/30/2014 08/01/2014 Inactive (Response to an electronic controlled substance refill request - RxReferenceNumber: [id number]) Diflucan 150 mg tablet RxNorm: 006913 1 Tablet(s) PO daily 06/25/2014 07/01/2014 Inactive [SAVINGS FOR UNINSURED PATIENTS -- BIN:[id number], PCN: ASPROD1, Group: [id number], ID# [id number], Process claim through MedImp[employer], for questions: . THIS IS NOT INSURANCE.] Kenalog 40 mg/mL suspension for injection RxNorm: 1367464 Milliliter(s) Inj 06/23/2014 06/23/2014 Inactive [SAVINGS FOR UNINSURED PATIENTS -- BIN:243918, PCN: ASPROD1, Group: [id number], ID# [id number], Process claim through MedImp[employer], for questions: . THIS IS NOT INSURANCE.] ceftriaxone 500 mg solution for injection RxNorm: 327362 Inj 06/23/2014 06/23/2014 Inactive [SAVINGS FOR UNINSURED PATIENTS -- BIN:412132, PCN: ASPROD1, Group: [id number], ID# [id number], Process claim through MedImp[employer], for questions: . THIS IS NOT INSURANCE.] Levaquin 500 mg tablet RxNorm: 603108 1 Tablet(s) PO daily 06/23/2014 07/13/2014 Inactive [SAVINGS FOR UNINSURED PATIENTS -- BIN:201826, PCN: ASPROD1, Group: [id number], ID# [id number], Process claim through MedImpact, for questions: . THIS IS NOT INSURANCE.] Duragesic 50 mcg/hr transdermal patch RxNorm: 436107 1 TD q72 hours 06/05/2014 08/06/2014 Inactive [SAVINGS FOR UNINSURED PATIENTS -- BIN:305172, PCN: ASPROD1, Group: [id number], ID# [id number], Process claim through MedImp[employer], for questions: . THIS IS NOT INSURANCE.] alprazolam 0.25 mg tablet RxNorm: 597615 1 Tablet(s) PO daily as needed TAKE ONE TABLET BY MOUTH EVERY DAY NEEDED 06/02/2014 07/29/2014 Inactive (Response to an electronic controlled substance refill request - RxReferenceNumber: [id number]) nystatin 100,000 unit/gram topical powder RxNorm: 110203 APPLY TO AFFECTED AREA(S) TWO TIMES A DAY 05/01/2014 06/14/2014 Inactive hydrochlorothiazide 25 mg tablet RxNorm: 484171 TAKE ONE TABLET BY MOUTH EVERY DAY MUST CALL MD FOR APPOINTMENT 04/24/2014 10/20/2014 Inactive alprazolam 0.25 mg tablet RxNorm: 573337 Tablet(s) TAKE ONE TABLET BY MOUTH EVERY DAY NEEDED 04/16/2014 06/02/2014 Inactive (Response to an electronic controlled substance refill request - RxReferenceNumber: [id number]) alprazolam 0.25 mg tablet RxNorm: 280698 TAKE ONE TABLET BY MOUTH EVERY DAY NEEDED 04/16/2014 05/15/2014 Inactive (Response to an electronic controlled substance refill request - RxReferenceNumber: [id number]) alprazolam 0.25 mg tablet RxNorm: 988644 TAKE ONE TABLET BY MOUTH EVERY DAY NEEDED 04/16/2014 05/15/2014 Inactive (Response to an electronic controlled substance refill request - RxReferenceNumber: [id number]) alprazolam 0.25 mg tablet RxNorm: 431200 TAKE ONE TABLET BY MOUTH EVERY DAY NEEDED 04/14/2014 04/16/2014 Inactive (Response to an electronic controlled substance refill request - RxReferenceNumber: [id number]) Lipitor 10 mg tablet RxNorm: 502954 TAKE ONE TABLET BY MOUTH EVERY DAY 04/14/2014 09/10/2014 Inactive alprazolam 0.25 mg tablet RxNorm: 168433 TAKE ONE TABLET BY MOUTH EVERY DAY NEEDED 04/14/2014 04/14/2014 Inactive (Response to an electronic controlled substance refill request - RxReferenceNumber: [id number]) alprazolam 0.25 mg tablet RxNorm: 595167 TAKE ONE TABLET BY MOUTH EVERY DAY NEEDED 04/14/2014 04/15/2014 Inactive (Response to an electronic controlled substance refill request - RxReferenceNumber: [id number]) alprazolam 0.25 mg tablet RxNorm: 182671 TAKE ONE TABLET BY MOUTH EVERY DAY NEEDED 04/14/2014 04/14/2014 Inactive (Response to an electronic controlled substance refill request - [id number]) nystatin 100,000 unit/gram topical powder RxNorm: 013636 1 Application TOP BID 04/03/2014 07/01/2014 Inactive [SAVINGS FOR UNINSURED PATIENTS -- BIN:407616, PCN: ASPROD1, Group: [id number], ID# [id number], Process claim through MedImpact, for questions: . THIS IS NOT INSURANCE.] Keflex 500 mg capsule RxNorm: 116911 1 Capsule(s) PO QID 04/03/2014 04/09/2014 Inactive [SAVINGS FOR UNINSURED PATIENTS -- BIN:019666, PCN: ASPROD1, Group: [id number], ID# [id number], Process claim through MedImpact, for questions: . THIS IS NOT INSURANCE.] Synthroid 100 mcg tablet RxNorm: 568814 1 Tablet(s) PO daily TAKE ONE TABLET BY MOUTH EVERY DAY 04/01/2014 01/05/2015 Inactive [SAVINGS FOR UNINSURED PATIENTS -- BIN:206923, PCN: ASPROD1, Group: [facility], ID# [id number], Process claim through MedImpact, for questions: . THIS IS NOT INSURANCE.] Duragesic 50 mcg/hr transdermal patch RxNorm: 325997 1 TD q72 hours 03/24/2014 06/04/2014 Inactive [SAVINGS FOR UNINSURED PATIENTS -- BIN:311852, PCN: ASPROD1, Group: [id number], ID# [id number], Process claim through MedImpact, for questions: . THIS IS NOT INSURANCE.] trazodone 50 mg tablet RxNorm: 183795 TAKE 1 AND 1/2 TABLET AT BEDTIME FOR 2 WEEKS, MAY INCREASE TO 2 TABLETS IF NECESSARY AFTER THAT 03/18/2014 09/13/2014 Inactive nystatin 100,000 unit/gram topical powder RxNorm: 201412 1 Application TOP BID 03/07/2014 03/16/2014 Inactive [SAVINGS FOR UNINSURED PATIENTS -- BIN:984579, PCN: ASPROD1, Group: [id number], ID# [id number], Process claim through MedImpact, for questions: . THIS IS NOT INSURANCE.] permethrin 5 % topical cream RxNorm: 285519 1 Application TOP daily 03/07/2014 11/23/2015 Inactive apply head to toe-leave on overnight and wash off in the a.m. May repeat x 1 if needed Diflucan 150 mg tablet RxNorm: 116606 1 Tablet(s) PO daily 03/07/2014 03/09/2014 Inactive [SAVINGS FOR UNINSURED PATIENTS -- BIN:750249, PCN: ASPROD1, Group: [id number], ID# [id number], Process claim through MedImpact, for questions: . THIS IS NOT INSURANCE.] hydrochlorothiazide 25 mg tablet RxNorm: 555196 TAKE ONE TABLET BY MOUTH EVERY DAY MUST CALL MD FOR APPOINTMENT 03/06/2014 04/23/2014 Inactive Zithromax Z-Sergio 250 mg tablet RxNorm: 057114 Tablet(s) PO as directed 03/04/2014 11/23/2015 Inactive [SAVINGS FOR UNINSURED PATIENTS -- BIN:375734, PCN: ASPROD1, Group: [id number], ID# [id number], Process claim through MedImpact, for questions: . THIS IS NOT INSURANCE.] Flonase 50 mcg/actuation nasal spray,suspension RxNorm: 571153 1 [place] NASAL daily 03/04/2014 07/01/2014 Inactive [SAVINGS FOR UNINSURED PATIENTS -- BIN:967239, PCN: ASPROD1, Group: [id number], ID# [id number], Process claim through MedImpact, for questions: . THIS IS NOT INSURANCE.] alprazolam 0.25 mg tablet RxNorm: 820669 1 Tablet(s) PO PRN TAKE ONE TABLET BY MOUTH EVERY DAY NEEDED 02/25/2014 04/14/2014 Inactive (Appended: Controlled substance eRx refill - RxReferenceNumber: [id number]) alprazolam 0.25 mg tablet RxNorm: 299367 TAKE ONE TABLET BY MOUTH EVERY DAY NEEDED 02/21/2014 03/22/2014 Inactive (Response to an electronic controlled substance refill request - RxReferenceNumber: [id number]) alprazolam 0.25 mg tablet RxNorm: 523848 TAKE ONE TABLET BY MOUTH EVERY DAY NEEDED 02/21/2014 03/22/2014 Inactive (Response to an electronic controlled substance refill request - RxReferenceNumber: [id number]) alprazolam 0.25 mg tablet RxNorm: 667527 TAKE ONE TABLET BY MOUTH EVERY DAY NEEDED 02/18/2014 03/19/2014 Inactive (Response to an electronic controlled substance refill request - RxReferenceNumber: [id number]) Cymbalta 60 mg capsule,delayed release RxNorm: 716883 TAKE ONE CAPSULE BY MOUTH TWICE A DAY 02/18/2014 01/13/2015 Inactive Nexium 40 mg capsule,delayed release RxNorm: 313139 TAKE ONE CAPSULE BY MOUTH EVERY DAY 02/18/2014 01/13/2015 Inactive Bactrim DS 800 mg-160 mg tablet RxNorm: 361538 1 Tablet(s) PO BID 02/13/2014 02/19/2014 Inactive probiotic while one antibiotic Bactrim DS 800 mg-160 mg tablet RxNorm: 353239 1 Tablet(s) PO BID 02/13/2014 02/12/2014 Inactive hydrocodone 10 mg-acetaminophen 325 mg tablet RxNorm: 883254 Tablet(s) PO TAKE ONE TO TWO TABLETS BY MOUTH EVERY 6 HOURS NEEDED FOR PAIN 02/06/2014 03/18/2015 Inactive (Appended: Controlled substance eRx refill - RxReferenceNumber: [id number]) Abilify 2 mg tablet RxNorm: 737369 Tablet(s) PO TAKE ONE TABLET BY MOUTH EVERY NIGHT AT BEDTIME 02/03/2014 03/19/2015 Inactive Duragesic 50 mcg/hr transdermal patch RxNorm: 368401 1 TD q72 hours 01/14/2014 03/23/2014 Inactive alprazolam 0.25 mg tablet RxNorm: 633510 1 Tablet(s) PO QDAY PRN 01/14/2014 02/12/2014 Inactive alprazolam 0.25 mg tablet RxNorm: 979233 Tablet(s) PO TAKE ONE TABLET BY MOUTH EVERY DAY NEEDED 01/14/2014 02/24/2014 Inactive (Appended: Controlled substance eRx refill - RxReferenceNumber: [id number]) Lipitor 10 mg tablet RxNorm: 064871 Tablet(s) PO TAKE ONE TABLET BY MOUTH EVERY DAY 01/14/2014 04/13/2014 Inactive Synthroid 100 mcg tablet RxNorm: 006016 Tablet(s) PO TAKE ONE TABLET BY MOUTH EVERY DAY 2013 03/31/2014 Inactive Fioricet 50 mg-325 mg-40 mg tablet RxNorm: 039753 Tablet(s) PO TAKE ONE TABLET BY MOUTH EVERY 4 HOURS NEEDED FOR PAIN 11/27/2013 09/17/2014 Inactive Fioricet 50 mg-325 mg-40 mg tablet RxNorm: 912591 Tablet(s) PO TAKE ONE TABLET BY MOUTH EVERY 4 HOURS NEEDED FOR PAIN 11/25/2013 11/26/2013 Inactive Zithromax Z-Sergio 250 mg tablet RxNorm: 082896 Tablet(s) PO as directed 11/11/2013 01/13/2014 Inactive Bystolic 10 mg tablet RxNorm: 926047 Tablet(s) PO TAKE ONE TABLET BY MOUTH EVERY DAY 10/21/2013 09/28/2014 Inactive Abilify 2 mg tablet RxNorm: 452057 1 Tablet(s) PO QHS 09/25/2013 01/22/2014 Inactive Synthroid 100 mcg tablet RxNorm: 631894 Tablet(s) PO TAKE ONE TABLET BY MOUTH EVERY DAY 09/24/2013 12/25/2013 Inactive Abilify 2 mg tablet RxNorm: 479791 1 Tablet(s) PO QHS 09/24/2013 09/24/2013 Inactive Rocephin 500 mg solution for injection RxNorm: 499099 1ml Milliliter(s) Inj 09/24/2013 09/24/2013 Inactive Rocephin 500 mg solution for injection RxNorm: 938179 1 Milliliter(s) Inj 09/19/2013 09/19/2013 Inactive Bystolic 5 mg tablet RxNorm: 563170 1 1/2 Tablet(s) PO daily 09/17/2013 03/15/2014 Inactive 1 1/2 daily may have 90 day if cheaper Bystolic 5 mg tablet RxNorm: 857680 1 1/2 Tablet(s) PO daily 09/17/2013 09/16/2013 Inactive 1 1/2 daily Lipitor 10 mg tablet RxNorm: 760552 Tablet(s) PO TAKE ONE TABLET BY MOUTH EVERY DAY 09/12/2013 01/13/2014 Inactive hydrocodone 10 mg-acetaminophen 325 mg tablet RxNorm: 627615 Tablet(s) PO TAKE ONE TO TWO TABLETS BY MOUTH EVERY 6 HOURS NEEDED FOR PAIN 09/09/2013 10/29/2017 Inactive (Appended: Controlled substance eRx refill - RxReferenceNumber: [id number]) hydrocodone 10 mg-acetaminophen 325 mg tablet RxNorm: 716655 1 Tablet(s) PO Q6 PRN 09/09/2013 02/06/2014 Inactive hydrocodone 10 mg-acetaminophen 325 mg tablet RxNorm: 596976 Tablet(s) PO TAKE ONE TO TWO TABLETS BY MOUTH EVERY 6 HOURS NEEDED FOR PAIN 09/06/2013 10/29/2017 Inactive (Appended: Controlled substance eRx refill - RxReferenceNumber: [id number]) Norvasc 10 mg tablet RxNorm: 162473 Tablet(s) PO TAKE ONE TABLET BY MOUTH EVERY DAY 09/05/2013 10/25/2015 Inactive trazodone 50 mg tablet RxNorm: 432496 1 1/2 Tablet(s) PO QHS 09/03/2013 03/17/2014 Inactive 75q hs x 2 week may increase to 100mg if nec after that nystatin 100,000 unit/mL oral suspension RxNorm: 033679 6 Milliliter(s) PO QID 08/06/2013 08/15/2013 Inactive Flonase 50 mcg/actuation nasal spray,suspension RxNorm: 095610 2 [place] NASAL daily 08/06/2013 03/03/2014 Inactive nystatin 100,000 unit/mL oral suspension RxNorm: 566402 6 Unit(s) PO QID 08/05/2013 08/05/2013 Inactive Phenergan with Codeine Syrup RxNorm: 5 Milliliter(s) PO Q4 PRN 08/05/2013 12/02/2013 Inactive 8 ounces alprazolam 0.25 mg tablet RxNorm: 479738 1 Tablet(s) PO QDAY PRN 07/29/2013 01/14/2014 Inactive Diflucan 150 mg tablet RxNorm: 696419 1 Tablet(s) PO daily 07/24/2013 07/26/2013 Inactive hydrochlorothiazide 25 mg tablet RxNorm: 793700 Tablet(s) PO TAKE ONE TABLET BY MOUTH EVERY DAY MUST CALL MD FOR APPOINTMENT 07/19/2013 03/05/2014 Inactive Phenergan with Codeine Syrup RxNorm: 10 Milliliter(s) PO Q4 PRN 07/10/2013 08/04/2013 Inactive 8 ounces Rocephin 500 mg solution for injection RxNorm: 1346809 1 Inj 07/10/2013 07/10/2013 Inactive cefdinir 300 mg capsule RxNorm: 120501 1 Capsule(s) PO BID 07/10/2013 07/16/2013 Inactive prednisone 10 mg tablet RxNorm: 114057 3 Tablet(s) PO daily 07/10/2013 07/14/2013 Inactive Carafate 100 mg/mL oral suspension RxNorm: 374836 10 Milliliter(s) PO Q6 PRN pt to take carafate 10mL every 6 hours as needed. 07/10/2013 08/05/2014 Inactive Kenalog 40 mg/mL suspension for injection RxNorm: 1407453 1 Milliliter(s) Inj 07/10/2013 07/10/2013 Inactive trazodone 50 mg tablet RxNorm: 710983 1 Tablet(s) PO QHS 07/10/2013 09/02/2013 Inactive sulfamethoxazole 800 mg-trimethoprim 160 mg tablet RxNorm: 370932 1 Tablet(s) PO BID 06/03/2013 06/12/2013 Inactive Synthroid 125 mcg tablet RxNorm: 697665 1 Tablet(s) PO daily 05/07/2013 09/23/2013 Inactive Bystolic 10 mg tablet RxNorm: 611032 1.5 Tablet(s) PO daily 05/07/2013 09/03/2013 Inactive Voltaren 1 % Topical Gel RxNorm: 503811 4 Gram(s) TOP QID apply 4 grams to knees, 2 grams to hands and ankles four times daily. 05/07/2013 09/03/2013 Inactive hydrocodone 10 mg-acetaminophen 325 mg tablet RxNorm: 448877 1 Tablet(s) PO Q6 PRN 04/23/2013 09/09/2013 Inactive Norvasc 10 mg tablet RxNorm: 400653 Tablet(s) PO TAKE ONE TABLET BY MOUTH EVERY DAY 04/23/2013 09/04/2013 Inactive alprazolam 0.25 mg tablet RxNorm: 025320 1 Tablet(s) PO QDAY PRN 03/25/2013 07/22/2013 Inactive Bystolic 10 mg tablet RxNorm: 753253 1 Tablet(s) PO daily TAKE ONE TABLET BY MOUTH EVERY DAY 03/25/2013 05/06/2013 Inactive zolpidem 10 mg tablet RxNorm: 500748 1 Tablet(s) PO HS PRN 03/25/2013 07/09/2013 Inactive gentamicin 0.3 % Eye Drops RxNorm: 533721 3 Drop(s) OPH QID three gtts to each eye QID x 7 days 03/11/2013 03/10/2013 Inactive gentamicin 0.3 % eye drops RxNorm: 753233 3 Drop(s) OPH QID three gtts to each eye QID x 7 days 03/11/2013 03/17/2013 Inactive Nexium 40 mg capsule,delayed release RxNorm: 840386 Capsule(s) PO TAKE ONE CAPSULE BY MOUTH EVERY DAY 02/15/2013 02/17/2014 Inactive Cymbalta 60 mg capsule,delayed release RxNorm: 649217 Capsule(s) PO TAKE ONE CAPSULE BY MOUTH TWICE A DAY 02/15/2013 02/17/2014 Inactive hydrocodone 10 mg-acetaminophen 325 mg tablet RxNorm: 1632369 1 Tablet(s) PO Q6 PRN 01/22/2013 04/22/2013 Inactive Lipitor 10 mg tablet RxNorm: 690317 Tablet(s) PO TAKE ONE TABLET BY MOUTH EVERY DAY 01/07/2013 09/11/2013 Inactive Cymbalta 60 mg capsule,delayed release RxNorm: 807616 Capsule(s) PO TAKE ONE CAPSULE BY MOUTH TWICE A DAY 01/02/2013 02/14/2013 Inactive Synthroid 100 mcg tablet RxNorm: 305260 1 Tablet(s) PO 12/03/2012 05/06/2013 Inactive Enablex 7.5 mg tablet,extended release RxNorm: 924270 1 Tablet(s) PO daily 11/28/2012 11/27/2012 Inactive Enablex 7.5 mg tablet,extended release RxNorm: 749187 1 Tablet(s) PO daily 11/28/2012 11/28/2012 Inactive scopolamine 1.5 mg 72 hr Transderm Patch RxNorm: 380626 1 Milligram(s) TD q72 hours 11/26/2012 05/06/2013 Inactive hydrochlorothiazide 25 mg tablet RxNorm: 201123 Tablet(s) PO TAKE ONE TABLET BY MOUTH EVERY DAY MUST CALL MD FOR APPOINTMENT 11/24/2012 07/18/2013 Inactive Cymbalta 60 mg capsule,delayed release RxNorm: 475529 Capsule(s) PO TAKE ONE CAPSULE BY MOUTH TWICE A DAY 10/26/2012 01/01/2013 Inactive Bystolic 10 mg tablet RxNorm: 442991 Tablet(s) PO TAKE ONE TABLET BY MOUTH EVERY DAY 10/12/2012 03/25/2013 Inactive zolpidem 10 mg tablet RxNorm: 728704 1 Tablet(s) PO HS PRN 10/02/2012 01/29/2013 Inactive alprazolam 0.25 mg tablet RxNorm: 556207 1 Tablet(s) PO QDAY PRN 10/02/2012 01/29/2013 Inactive Kenalog 40 mg/mL Susp for Injection RxNorm: 9958063 1 Milliliter(s) Inj 09/24/2012 09/24/2012 Inactive Diflucan 150 mg tablet RxNorm: 424138 1 Tablet(s) PO daily 09/24/2012 09/30/2012 Inactive acyclovir 400 mg tablet RxNorm: 622891 1 Tablet(s) PO QID 09/24/2012 10/08/2012 Inactive Cipro 500 mg tablet RxNorm: 434980 1 Tablet(s) PO BID 09/24/2012 09/30/2012 Inactive Tamiflu 75 mg capsule RxNorm: 343551 1 Capsule(s) PO BID 09/17/2012 09/16/2012 Inactive Tamiflu 75 mg capsule RxNorm: 811918 1 Capsule(s) PO BID 09/17/2012 09/16/2012 Inactive Tamiflu 75 mg capsule RxNorm: 188857 1 Capsule(s) PO BID please disregard order for #14 09/17/2012 09/21/2012 Inactive fluconazole 150 mg tablet RxNorm: 794655 1 Tablet(s) PO daily 09/10/2012 09/13/2012 Inactive ketoconazole 2 % Topical Cream RxNorm: 054444 Application TOP BID apply to affected area BID until gone 08/31/2012 11/01/2017 Inactive Norvasc 10 mg tablet RxNorm: 477753 Tablet(s) PO TAKE ONE TABLET BY MOUTH EVERY DAY 08/29/2012 04/22/2013 Inactive Cipro 500 mg tablet RxNorm: 604397 1 Tablet(s) PO BID 08/17/2012 08/26/2012 Inactive Flagyl 500 mg tablet RxNorm: 404375 1 Tablet(s) PO TID 08/17/2012 08/23/2012 Inactive Cipro 500 mg tablet RxNorm: 653699 1 Tablet(s) PO BID 08/17/2012 08/16/2012 Inactive zolpidem 10 mg tablet RxNorm: 337080 1 Tablet(s) PO HS PRN 08/17/2012 09/15/2012 Inactive Flagyl 500 mg tablet RxNorm: 535297 1 Tablet(s) PO TID 08/17/2012 08/16/2012 Inactive alprazolam 0.25 mg tablet RxNorm: 991061 1 Tablet(s) PO QDAY PRN 08/17/2012 09/15/2012 Inactive [place] Allergy 180 mg tablet RxNorm: 486116 1 Tablet(s) PO daily 08/08/2012 02/03/2013 Inactive hydrochlorothiazide 25 mg tablet RxNorm: 405197 1/2 Tablet(s) PO daily 08/08/2012 11/05/2012 Inactive needs appt Carafate 1 gram tablet RxNorm: 766355 1 Tablet(s) PO QID mix with 10 cc water and dissolve into slurry 08/08/2012 08/21/2012 Inactive hydrocodone 10 mg-acetaminophen 325 mg tablet RxNorm: 7122029 1 Tablet(s) PO Q6 PRN 08/08/2012 01/21/2013 Inactive Synthroid 100 mcg tablet RxNorm: 103934 1 Tablet(s) PO 08/08/2012 12/02/2012 Inactive Cymbalta 60 mg capsule,delayed release RxNorm: 358247 Capsule(s) PO 07/23/2012 10/25/2012 Inactive TAKE ONE CAPSULE BY MOUTH TWICE A DAY Nexium 40 mg capsule,delayed release RxNorm: 692519 Capsule(s) PO 06/20/2012 02/14/2013 Inactive TAKE ONE CAPSULE BY MOUTH EVERY DAY Lipitor 10 mg tablet RxNorm: 899293 Tablet(s) PO 06/20/2012 01/06/2013 Inactive TAKE ONE TABLET BY MOUTH EVERY DAY hydrochlorothiazide 25 mg tablet RxNorm: 159834 1 Tablet(s) PO daily 06/19/2012 08/07/2012 Inactive needs appt alprazolam 0.25 mg tablet RxNorm: 351857 1 Tablet(s) PO QDAY PRN 06/05/2012 07/04/2012 Inactive zolpidem 10 mg tablet RxNorm: 102380 1 Tablet(s) PO HS PRN 06/05/2012 07/04/2012 Inactive zolpidem 10 mg tablet RxNorm: 180318 1 Tablet(s) PO HS PRN 04/16/2012 05/15/2012 Inactive alprazolam 0.25 mg tablet RxNorm: 922437 1 Tablet(s) PO QDAY PRN 04/16/2012 05/15/2012 Inactive Cymbalta 60 mg capsule,delayed release RxNorm: 127702 1 Capsule(s) PO BID 03/22/2012 07/19/2012 Inactive Fioricet 50 mg-325 mg-40 mg tablet RxNorm: 105401 1 Tablet(s) PO Q4 PRN 03/22/2012 11/24/2013 Inactive Bystolic 10 mg tablet RxNorm: 507640 Tablet(s) PO 03/22/2012 10/11/2012 Inactive TAKE ONE TABLET BY MOUTH EVERY DAY potassium chloride ER 10 mEq Tab RxNorm: 628123 1 Tablet(s) PO daily 02/24/2012 03/01/2012 Inactive Lasix 20 mg Tab RxNorm: 557094 1 Tablet(s) PO daily 02/22/2012 02/21/2012 Inactive KCL 10 meq RxNorm: 1 PO daily 02/22/2012 02/21/2012 Inactive potassium chloride ER 10 mEq Tab RxNorm: 525753 1 Tablet(s) PO daily 02/22/2012 02/21/2012 Inactive Lasix 20 mg Tab RxNorm: 216546 1 Tablet(s) PO daily 02/22/2012 02/28/2012 Inactive KCL 10 meq RxNorm: 1 PO daily 02/22/2012 02/22/2012 Inactive potassium chloride ER 10 mEq Tab RxNorm: 042753 1 Tablet(s) PO daily 02/22/2012 02/23/2012 Inactive Rocephin 500 mg Solution for Injection RxNorm: 4406407 Inj 02/15/2012 02/15/2012 Inactive Nexium 40 mg capsule,delayed release RxNorm: 042721 1 Capsule(s) PO daily 02/15/2012 No Stop Date Active Bystolic 10 mg Tab RxNorm: 460558 1 Tablet(s) PO daily 02/15/2012 08/12/2012 Inactive alprazolam 0.25 mg tablet RxNorm: 516772 1 Tablet(s) PO QDAY PRN 01/31/2012 02/29/2012 Inactive zolpidem 10 mg tablet RxNorm: 320787 1 Tablet(s) PO HS PRN 01/31/2012 02/29/2012 Inactive alprazolam 0.25 mg Tab RxNorm: 854952 1 Tablet(s) PO QDAY PRN 12/16/2011 01/14/2012 Inactive zolpidem 10 mg Tab RxNorm: 261716 1 Tablet(s) PO HS PRN 12/16/2011 01/14/2012 Inactive Norvasc 10 mg tablet RxNorm: 321704 1 Tablet(s) PO daily 12/02/2011 02/21/2012 Inactive Lipitor 10 mg tablet RxNorm: 564188 1 Tablet(s) PO daily 11/16/2011 05/13/2012 Inactive zolpidem 10 mg Tab RxNorm: 261009 1 Tablet(s) PO HS PRN 10/26/2011 12/15/2011 Inactive alprazolam 0.25 mg Tab RxNorm: 632594 1 Tablet(s) PO QDAY PRN 10/26/2011 12/15/2011 Inactive hydrochlorothiazide 25 mg tablet RxNorm: 648014 1 Tablet(s) PO daily 09/05/2011 03/02/2012 Inactive Synthroid 75 mcg tablet RxNorm: 165387 1 Tablet(s) PO daily 08/01/2011 02/26/2012 Inactive Abilify 2 mg Tab RxNorm: 476901 1 Tablet(s) PO QHS 08/01/2011 09/10/2012 Inactive dicyclomine 10 mg Cap RxNorm: 089411 1 Capsule(s) PO TID 08/01/2011 10/29/2011 Inactive alprazolam 0.25 mg Tab RxNorm: 192089 1 Tablet(s) PO QDAY PRN 07/26/2011 10/25/2011 Inactive Fioricet 50 mg-325 mg-40 mg tablet RxNorm: 914566 1 Tablet(s) PO Q4 PRN 07/14/2011 03/21/2012 Inactive Rocephin 500 mg Solution for Injection RxNorm: 2497872 1 Milliliter(s) Inj 07/14/2011 08/01/2011 Inactive Nexium 40 mg Capsule, delayed release RxNorm: 753433 1 Capsule(s) PO daily 05/23/2011 10/06/2011 Inactive Bystolic 10 mg tablet RxNorm: 870898 1 Tablet(s) PO daily 05/23/2011 11/18/2011 Inactive Bystolic 10 mg Tab RxNorm: 065515 1 Tablet(s) PO daily 05/23/2011 05/22/2011 Inactive alprazolam 0.25 mg Tab RxNorm: 347106 1 Tablet(s) PO QDAY PRN 05/23/2011 07/25/2011 Inactive Influenza Virus Vaccine 0.5 mL RxNorm: IM 05/23/2011 05/23/2011 Inactive zolpidem 10 mg Tab RxNorm: 938562 1 Tablet(s) PO HS PRN 05/23/2011 10/25/2011 Inactive Rocephin 500 mg Solution for Injection RxNorm: 0233571 1 Milliliter(s) Inj 05/03/2011 07/14/2011 Inactive Kenalog 40 mg/mL Susp for Injection RxNorm: 0124932 1 Milliliter(s) Inj 05/03/2011 07/14/2011 Inactive Bactrim DS 800 mg-160 mg Tab RxNorm: 598394 1 Tablet(s) PO BID 05/03/2011 08/01/2011 Inactive Bystolic 10 mg tablet RxNorm: 693624 1 Tablet(s) PO daily No Start Date Active Flonase 50 mcg/actuation nasal spray,suspension RxNorm: 5218067 2 [place] NASAL daily No Start Date 08/05/2013 Inactive Levaquin 500 mg tablet RxNorm: 456262 Tablet(s) PO No Start Date 04/19/2017 Inactive Duragesic 50 mcg/hr transdermal patch RxNorm: 223288 1 TD q72 hours No Start Date 01/13/2014 Inactive Vesicare 5 mg tablet RxNorm: 112127 1 Tablet(s) PO daily No Start Date 01/06/2015 Inactive Celebrex 200 mg capsule RxNorm: 097234 1 Capsule(s) PO daily No Start Date 04/02/2014 Inactive zolpidem 10 mg Tab RxNorm: 837592 1 Tablet(s) PO HS PRN No Start Date 05/22/2011 Inactive Zyrtec 10 mg Tab RxNorm: 0991498 1 Tablet(s) PO daily No Start Date 08/08/2012 Inactive Flonase 50 mcg/actuation nasal spray,suspension RxNorm: 6198727 1 [place] NASAL daily No Start Date 11/07/2017 Inactive 1 spray to each nostril daily Nexium 40 mg Cap RxNorm: 982935 1 Capsule(s) PO daily No Start Date 05/22/2011 Inactive ketoconazole 2 % Topical Cream RxNorm: 032329 Application TOP BID apply to affected area BID until gone No Start Date 08/30/2012 Inactive aspirin 81 mg tablet RxNorm: 007272 1 Tablet(s) PO daily No Start Date 11/13/2017 Inactive Cymbalta 60 mg capsule,delayed release RxNorm: 276714 1 Capsule(s) PO BID No Start Date 03/21/2012 Inactive alprazolam 0.25 mg Tab RxNorm: 728603 1 Tablet(s) PO QDAY PRN No Start Date 05/22/2011 Inactive baclofen 10 mg tablet RxNorm: 658646 1 Tablet(s) PO TID as needed muscle spasms No Start Date 11/14/2017 Inactive Toprol XL 100 mg 24 hr Tab RxNorm: 363055 1 Tablet(s) PO BID No Start Date 04/25/2011 Inactive Xanax 0.25 mg tablet RxNorm: 400630 1 Tablet(s) PO daily as needed No Start Date 12/27/2015 Inactive Bystolic 10 mg Tab RxNorm: 118194 1 Tablet(s) PO daily No Start Date 05/22/2011 Inactive Fioricet 50 mg-325 mg-40 mg Tab RxNorm: 081745 1 Tablet(s) PO Q4 PRN No Start Date 07/13/2011 Inactive albuterol sulfate HFA 90 mcg/Actuation Aerosol Inhaler RxNorm: 2843720 1 INH Q4 PRN No Start Date 01/06/2015 Inactive Imitrex 50 mg tablet RxNorm: 244201 1 Tablet(s) PO Q8 as needed may repeat x1 dose in 1 hour of inital dose. No Start Date 02/24/2016 Inactive dc fioricet Tessalon 200 mg Cap RxNorm: 000880 1 Capsule(s) PO Q4 PRN No Start Date 02/14/2012 Inactive Zithromax Z-Sergio 250 mg tablet RxNorm: 123335 Tablet(s) PO No Start Date 11/10/2013 Inactive hydrochlorothiazide 25 mg Tab RxNorm: 554017 1 Tablet(s) PO daily No Start Date 09/04/2011 Inactive Fish Oil 1,000 mg Cap RxNorm: 1 Capsule(s) PO TID No Start Date 11/08/2017 Inactive Deplin 15 mg Tab RxNorm: 1 Tablet(s) PO daily No Start Date 08/01/2011 Inactive Brilinta 90 mg tablet RxNorm: 3553972 1 Tablet(s) PO BID No Start Date 11/23/2015 Inactive Synthroid 75 mcg Tab RxNorm: 067424 1 Tablet(s) PO daily No Start Date 07/31/2011 Inactive ciprofloxacin 0.3 % eye drops RxNorm: 380719 2 Drop(s) ophthalmic (eye) Q2H while awake x 2 days, then Q4H x 5 days No Start Date 11/22/2017 Inactive scopolamine 1.5 mg 72 hr Transderm Patch RxNorm: 651242 1 Milligram(s) TD q72 hours No Start Date 11/25/2012 Inactive hydrocodone-acetaminophen 10 mg-325 mg tablet RxNorm: 5609884 1 Tablet(s) PO Q6 PRN No Start Date 08/07/2012 Inactive Phenergan with Codeine Syrup RxNorm: 5-10 Milliliter(s) PO Q6 PRN No Start Date 02/14/2012 Inactive Norvasc 10 mg Tab RxNorm: 958627 1 Tablet(s) PO daily No Start Date 12/01/2011 Inactive Zithromax Z-Sergio 250 mg Tab RxNorm: 496855 Tablet(s) PO No Start Date 08/01/2011 Inactive Medication Administered Medication Codes Instructions Start Date Status ceftriaxone 1 gram solution for injection RxNorm: 1236152 02/20/2019 No longer Active ceftriaxone 500 mg solution for injection RxNorm: 2987998 05/28/2018 No longer Active Kenalog 40 mg/mL suspension for injection RxNorm: 9042676 Milliliter 05/28/2018 No longer Active ceftriaxone 500 mg solution for injection RxNorm: 0580096 500Milligram 01/19/2018 No longer Active Kenalog 40 mg/mL suspension for injection RxNorm: 3166661 1Milliliter 01/19/2018 No longer Active Kenalog 40 mg/mL suspension for injection RxNorm: 6693248 1Milliliter 06/27/2017 No longer Active Kenalog 40 mg/mL suspension for injection RxNorm: 8275004 Milliliter 04/20/2017 No longer Active Kenalog 40 mg/mL suspension for injection RxNorm: 2285181 1Milliliter 03/14/2017 No longer Active ceftriaxone 500 mg solution for injection RxNorm: 2915463 1Milliliter 11/28/2016 No longer Active Kenalog 40 mg/mL suspension for injection RxNorm: 2317834 Milliliter 11/07/2016 No longer Active ceftriaxone 500 mg solution for injection RxNorm: 9296832 11/07/2016 No longer Active ceftriaxone 500 mg solution for injection RxNorm: 1888659 12/07/2015 No longer Active Kenalog 40 mg/mL suspension for injection RxNorm: 4627976 1Milliliter 11/24/2015 No longer Active ceftriaxone 500 mg solution for injection RxNorm: 2600536 Milliliter 11/24/2015 No longer Active promethazine 25 mg/mL injection solution RxNorm: 242327 Milliliter 08/27/2015 No longer Active ketorolac 60 mg/2 mL intramuscular solution RxNorm: 713714 Milliliter 08/27/2015 No longer Active Kenalog 40 mg/mL suspension for injection RxNorm: 3384430 Milliliter 08/10/2015 No longer Active ceftriaxone 500 mg solution for injection RxNorm: 9658457 08/10/2015 No longer Active ceftriaxone 500 mg solution for injection RxNorm: 0679606 1Milliliter 07/28/2015 No longer Active Kenalog 40 mg/mL suspension for injection RxNorm: 9530601 Milliliter 03/19/2015 No longer Active Kenalog 40 mg/mL suspension for injection RxNorm: 1462627 Milliliter 06/23/2014 No longer Active ceftriaxone 500 mg solution for injection RxNorm: 801164 06/23/2014 No longer Active Rocephin 500 mg solution for injection RxNorm: 016149 1mlMilliliter 09/24/2013 No longer Active Rocephin 500 mg solution for injection RxNorm: 285302 1Milliliter 09/19/2013 No longer Active Rocephin 500 mg solution for injection RxNorm: 6014663 1 07/10/2013 No longer Active Kenalog 40 mg/mL suspension for injection RxNorm: 0625335 1Milliliter 07/10/2013 No longer Active Kenalog 40 mg/mL Susp for Injection RxNorm: 1910906 1Milliliter 09/24/2012 No longer Active Rocephin 500 mg Solution for Injection RxNorm: 0047469 02/15/2012 No longer Active Influenza Virus Vaccine 0.5 mL RxNorm: 05/23/2011 No longer Active Immunizations Vaccine Codes Date Status Influenza CVX: 141 06/24/2013 completed Pneumococcal CVX: 33 06/24/2013 completed PPD Unknown 05/13/2013 completed Assessments Condition Codes Effective Dates Cellulitis of left upper limb ICD-10: L03.114 ICD-9: 682.3 02/20/2019 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.1 ICD-9: 564.5 01/29/2019 [...] For Visit Effective Dates Notes skin lesion 02/20/2019 diarrhea 01/29/2019 hypertension 11/13/2018 [...] (3rd IS) 4.03 uIU/mL 02/15/2019 Free T4 Krt315 FREE T4 0.71 ng/dL 02/15/2019 Lipid Ord30 CHOL 193 mg/dL 01/01/2019 Lipid Ord30 HDL 45.0 mg/dl 01/01/2019 Lipid Ord30 TRIG 111 mg/dL 01/01/2019 Lipid Ord30 LDL 126 mg/dL 01/01/2019 Lipid Ord30 C/HDL 4.3 Ratio 01/01/2019 Comp Metabolic Kmx148 NA 140 mEq/L 01/01/2019 Comp Metabolic Rqe909 K 3.8 mEq/L 01/01/2019 Comp Metabolic Wyt136 CL 103 mEq/L 01/01/2019 Comp Metabolic Anf190 CO2 28.0 mEq/L 01/01/2019 Comp Metabolic Uls172 ANION GAP 13 01/01/2019 Comp Metabolic Kpn213 GLUCOSE 93 mg/dL 01/01/2019 Comp Metabolic Zyn664 Creat 0.7 mg/dL 01/01/2019 Comp Metabolic Ftq509 eGFR 86 ml/min/1.73m2 01/01/2019 Comp Metabolic Ijt591 BUN 21 mg/dL 01/01/2019 Comp Metabolic Zom643 B/C Ratio 29.6 Ratio 01/01/2019 Comp Metabolic Ttw793 CALCIUM 9.4 mg/dL 01/01/2019 Comp Metabolic Cxe601 ALK PHOS 67 U/L 01/01/2019 Comp Metabolic Qeg611 AST(SGOT) 27 U/L 01/01/2019 Comp Metabolic Dzy902 ALT(SGPT) 30 U/L 01/01/2019 Comp Metabolic Ont512 BILI T 0.5 mg/dL 01/01/2019 Comp Metabolic Mli943 ALBUMIN 4.0 g/dL 01/01/2019 Comp Metabolic Jqy100 TPRO 6.8 g/dL 01/01/2019 Comp Metabolic Zqe959 GLOB 2.8 g/dL 01/01/2019 Comp Metabolic Ewl150 A/G Ratio 1.4 Ratio 01/01/2019 Comp Metabolic Jkn601 Osmo 282 mOsmo 01/01/2019 Free T4 Xtz568 FREE T4 0.71 ng/dL 10/31/2018 Tsh Ord6 TSH (3rd IS) 7.87 uIU/mL 10/31/2018 Lipid Ord30 CHOL 170 mg/dL 10/31/2018 Lipid Ord30 HDL 53.0 mg/dl 10/31/2018 Lipid Ord30 TRIG 85 mg/dL 10/31/2018 Lipid Ord30 LDL 100 mg/dL 10/31/2018 Lipid Ord30 C/HDL 3.2 Ratio 10/31/2018 Comp Metabolic Dqt681 NA 142 mEq/L 10/31/2018 Comp Metabolic Jjf841 K 4.0 mEq/L 10/31/2018 Comp Metabolic Bpt541 CL 106 mEq/L 10/31/2018 Comp Metabolic Iyc993 CO2 27.0 mEq/L 10/31/2018 Comp Metabolic Sow468 ANION GAP 13 10/31/2018 Comp Metabolic Roc657 GLUCOSE 114 mg/dL 10/31/2018 Comp Metabolic Yuw595 Creat 0.7 mg/dL 10/31/2018 Comp Metabolic Ego936 eGFR 90 ml/min/1.73m2 10/31/2018 Comp Metabolic Kvu285 BUN 21 mg/dL 10/31/2018 Comp Metabolic Csg623 B/C Ratio 30.9 Ratio 10/31/2018 Comp Metabolic Pel340 CALCIUM 9.7 mg/dL 10/31/2018 Comp Metabolic Zpd488 ALK PHOS 63 U/L 10/31/2018 Comp Metabolic Fyt203 AST(SGOT) 24 U/L 10/31/2018 Comp Metabolic Hxe888 ALT(SGPT) 21 U/L 10/31/2018 Comp Metabolic Jrv287 BILI T 0.6 mg/dL 10/31/2018 Comp Metabolic Jyw027 ALBUMIN 4.1 g/dL 10/31/2018 Comp Metabolic Ezg778 TPRO 6.6 g/dL 10/31/2018 Comp Metabolic Bgj465 GLOB 2.5 g/dL 10/31/2018 Comp Metabolic Mpv423 A/G Ratio 1.7 Ratio 10/31/2018 Comp Metabolic Zdc246 Osmo 287 mOsmo 10/31/2018 Cbc With Differential [...] 30.9 pg 10/31/2018 Cbc With Differential Ord2 [place]% 8.0 % 10/31/2018 Cbc With Differential Ord2 [...] 1.88 K/ul 10/31/2018 Cbc With Differential Ord2 [place] ABS# 0.6 K/ul 10/31/2018 Cbc With Differential Ord2 Eos ABS# 0.5 K/ul 10/31/2018 Cbc With Differential Ord2 Baso ABS# 0.1 K/ul 10/31/2018 Comp Metabolic Wwo923 NA 141 mEq/L 09/12/2017 Comp Metabolic Gzr651 K 4.1 mEq/L 09/12/2017 Comp Metabolic Cpm616 CL 105 mEq/L 09/12/2017 Comp Metabolic Ojk492 CO2 30.0 mEq/L 09/12/2017 Comp Metabolic Djk157 ANION GAP 10 09/12/2017 Comp Metabolic Khn448 GLUCOSE 97 mg/dL 09/12/2017 Comp Metabolic Xeg334 Creat 0.7 mg/dL 09/12/2017 Comp Metabolic Aol428 eGFR 91 ml/min/1.73m2 09/12/2017 Comp Metabolic Ytl001 BUN 18 mg/dL 09/12/2017 Comp Metabolic Dms329 B/C Ratio 26.5 Ratio 09/12/2017 Comp Metabolic Owu961 CALCIUM 9.7 mg/dL 09/12/2017 Comp Metabolic Egg846 ALK PHOS 60 U/L 09/12/2017 Comp Metabolic Wnv905 AST(SGOT) 22 U/L 09/12/2017 Comp Metabolic Xkl670 ALT(SGPT) 23 U/L 09/12/2017 Comp Metabolic Dxy741 BILI T 0.4 mg/dL 09/12/2017 Comp Metabolic Hzo176 ALBUMIN 3.8 g/dL 09/12/2017 Comp Metabolic Xve569 TPRO 6.4 g/dL 09/12/2017 Comp Metabolic Sjn051 GLOB 2.6 g/dL 09/12/2017 Comp Metabolic Vbd062 A/G Ratio 1.5 Ratio 09/12/2017 Comp Metabolic Ghu719 Osmo 283 mOsmo 09/12/2017 Cbc With Differential [...] 30.7 pg 09/12/2017 Cbc With Differential Ord2 [place]% 7.2 % 09/12/2017 Cbc With Differential Ord2 [...] 2.46 K/ul 09/12/2017 Cbc With Differential Ord2 [place] ABS# 0.6 K/ul 09/12/2017 Cbc With Differential [...] 31.4 pg 11/07/2016 Cbc With Differential Ord2 [place]% 6.1 % 11/07/2016 Cbc With Differential Ord2 [...] 2.48 K/ul 11/07/2016 Cbc With Differential Ord2 [place] ABS# 0.6 K/ul 11/07/2016 Cbc With Differential Ord2 Eos ABS# 0.3 K/ul 11/07/2016 Cbc With Differential Ord2 Baso ABS# 0.1 K/ul 11/07/2016 Comp Metabolic Gum990 NA 139 mEq/L 11/07/2016 Comp Metabolic Zee397 K 3.8 mEq/L 11/07/2016 Comp Metabolic Fbj844 CL 106 mEq/L 11/07/2016 Comp Metabolic Hne235 CO2 25.0 mEq/L 11/07/2016 Comp Metabolic Cgl675 ANION GAP 12 11/07/2016 Comp Metabolic Fll254 GLUCOSE 98 mg/dL 11/07/2016 Comp Metabolic Oyp134 Creat 0.8 mg/dL 11/07/2016 Comp Metabolic Wfc244 eGFR 71 ml/min/1.73m2 11/07/2016 Comp Metabolic Knu966 BUN 36 mg/dL 11/07/2016 Comp Metabolic Bgv160 B/C Ratio 42.9 Ratio 11/07/2016 Comp Metabolic Iii564 CALCIUM 9.9 mg/dL 11/07/2016 Comp Metabolic Tum002 ALK PHOS 57 U/L 11/07/2016 Comp Metabolic Huo626 AST(SGOT) 24 U/L 11/07/2016 Comp Metabolic Lei674 ALT(SGPT) 28 U/L 11/07/2016 Comp Metabolic Sgk362 BILI T 0.4 mg/dL 11/07/2016 Comp Metabolic Ipg874 ALBUMIN 4.2 g/dL 11/07/2016 Comp Metabolic Bja400 TPRO 7.0 g/dL 11/07/2016 Comp Metabolic Ohy537 GLOB 2.8 g/dL 11/07/2016 Comp Metabolic Pjx498 A/G Ratio 1.5 Ratio 11/07/2016 Comp Metabolic Mxi391 Osmo 286 mOsmo 11/07/2016 Free T4 Zck026 FREE T4 0.75 ng/dL 11/07/2016 Tsh Ord6 hTSH II 3.46 uIU/mL 11/07/2016 Comp Metabolic Zdk870 NA 138 mEq/L 05/10/2016 Comp Metabolic Olk425 K 3.8 mEq/L 05/10/2016 Comp Metabolic Emx483 CL 102 mEq/L 05/10/2016 Comp Metabolic Dxh033 CO2 29.0 mEq/L 05/10/2016 Comp Metabolic Xaa930 ANION GAP 11 05/10/2016 Comp Metabolic Oxg855 GLUCOSE 107 mg/dL 05/10/2016 Comp Metabolic Fvy645 Creat 0.7 mg/dL 05/10/2016 Comp Metabolic Juw811 eGFR 93 ml/min/1.73m2 05/10/2016 Comp Metabolic Pdl660 BUN 18 mg/dL 05/10/2016 Comp Metabolic Usa451 B/C Ratio 26.9 Ratio 05/10/2016 Comp Metabolic Cdg983 CALCIUM 9.8 mg/dL 05/10/2016 Comp Metabolic Gli540 ALK PHOS 60 U/L 05/10/2016 Comp Metabolic Oom542 AST(SGOT) 21 U/L 05/10/2016 Comp Metabolic Wwm335 ALT(SGPT) 23 U/L 05/10/2016 Comp Metabolic Yke545 BILI T 0.5 mg/dL 05/10/2016 Comp Metabolic Epf405 ALBUMIN 4.1 g/dL 05/10/2016 Comp Metabolic Jot539 TPRO 6.7 g/dL 05/10/2016 Comp Metabolic Xrs772 GLOB 2.7 g/dL 05/10/2016 Comp Metabolic Yum172 A/G Ratio 1.5 Ratio 05/10/2016 Comp Metabolic Ier111 Osmo 278 mOsmo 05/10/2016 Lipid Ord30 CHOL 169 mg/dL 05/10/2016 Lipid Ord30 HDL 50.0 mg/dl 05/10/2016 Lipid Ord30 TRIG 161 mg/dL 05/10/2016 Lipid Ord30 LDL 87 mg/dL 05/10/2016 Lipid Ord30 C/HDL 3.4 Ratio 05/10/2016 Comp Metabolic Nqc473 NA 137 mEq/L 06/12/2015 Comp Metabolic Kms719 K 3.8 mEq/L 06/12/2015 Comp Metabolic Nbw751 CL 104 mEq/L 06/12/2015 Comp Metabolic Qah005 CO2 24.0 mEq/L 06/12/2015 Comp Metabolic Xyn039 ANION GAP 13 06/12/2015 Comp Metabolic Adu493 GLUCOSE 92 mg/dL 06/12/2015 Comp Metabolic Con815 Creat 0.7 mg/dL 06/12/2015 Comp Metabolic Fay611 eGFR 87 ml/min/1.73m2 06/12/2015 Comp Metabolic Rdd656 BUN 31 mg/dL 06/12/2015 Comp Metabolic Ygc098 B/C Ratio 43.7 Ratio 06/12/2015 Comp Metabolic Vtz693 CALCIUM 10.0 mg/dL 06/12/2015 Comp Metabolic Rlr036 ALK PHOS 58 U/L 06/12/2015 Comp Metabolic Are482 AST(SGOT) 32 U/L 06/12/2015 Comp Metabolic Zzf918 ALT(SGPT) 33 U/L 06/12/2015 Comp Metabolic Akc220 BILI T 0.5 mg/dL 06/12/2015 Comp Metabolic Ent232 ALBUMIN 4.1 g/dL 06/12/2015 Comp Metabolic Yvd691 TPRO 6.6 g/dL 06/12/2015 Comp Metabolic Gid337 GLOB 2.5 g/dL 06/12/2015 Comp Metabolic Hyr498 A/G Ratio 1.6 Ratio 06/12/2015 Comp Metabolic Pdk241 Osmo 280 mOsmo 06/12/2015 Cbc With Differential [...] Differential Ord2 RDW 14.2 % 06/12/2015 CBC 9200557 WBC 8.7 10e9/L 04/30/2013 CBC 5146907 RBC 4.63 10e12/L 04/30/2013 CBC 2156022 HGB 14.1 g/dL 04/30/2013 CBC 9764501 HCT DET 42.2 % 04/30/2013 CBC 7573778 MCV 91.1 fL 04/30/2013 CBC 9041833 MCH 30.5 pg 04/30/2013 CBC 1951649 MCHC 33.4 g/dL 04/30/2013 CBC 2959479 PLT 248 10e9/L 04/30/2013 CBC 5840281 MPV 12.1 fL 04/30/2013 CBC 0687704 LARA % 59.0 % 04/30/2013 CBC 4329585 LY % 27.6 % 04/30/2013 CBC 8450787 MON % 8.0 % 04/30/2013 CBC 1006750 EOS % 4.8 % 04/30/2013 CBC 4827691 BASO % 0.6 % 04/30/2013 CBC 2848710 RDW 13.3 % 04/30/2013 CBC 9268387 ABS LARA 5.13 10e9/L 04/30/2013 CBC 4368043 ABS LYMPH 2.40 10e9/L 04/30/2013 CBC 2543119 ABS MONO 0.70 10e9/L 04/30/2013 CBC 9941541 ABS EOS 0.42 10e9/L 04/30/2013 CBC 3873082 ABS BASO 0.05 10e9/L 04/30/2013 CBC 2147295 RDW-SD 43.1 fL 04/30/2013 TSH 0310715 TSH 4.339 uIU/ML 04/30/2013 A1C HPLC 5525482 A1C HPLC 70558-0 5.6 % 04/30/2013 FREE T4 7547024 FREE T4 0.84 NG/DL 04/30/2013 GFR CALC 9761799 GFR AA >60 ML/MIN 04/30/2013 GFR CALC 3089087 GFR NON-AA >60 ML/MIN 04/30/2013 CHEM 14 9437007 AST 22 U/L 04/30/2013 CHEM 14 3763743 ALT 22 IU/L 04/30/2013 CHEM 14 1430643 BUN 24 MG/DL 04/30/2013 CHEM 14 2784365 ALBUMIN 4.2 GM/DL 04/30/2013 CHEM 14 8728841 CHLORIDE 107 MMOL/L 04/30/2013 CHEM 14 6037303 BILI TOT 0.3 MG/DL 04/30/2013 CHEM 14 2959317 ALK PHOS 88 U/L 04/30/2013 CHEM 14 4949885 SODIUM 141 MMOL/L 04/30/2013 CHEM 14 5910996 CREATININE 0.60 MG/DL 04/30/2013 CHEM 14 9490467 CALCIUM 9.9 MG/DL 04/30/2013 CHEM 14 6807834 POTASSIUM 3.7 MMOL/L 04/30/2013 CHEM 14 0679135 PROT TOT 6.6 GM/DL 04/30/2013 CHEM 14 1377953 GLUCOSE 123 MG/DL 04/30/2013 CHEM 14 1715580 BICARB 25 MMOL/L 04/30/2013 CHEM 14 9383451 ANION GAP 9 MEQ/L 04/30/2013 LIPID GRP HDL TEST 46 MG/DL 04/30/2013 LIPID GRP TRIG 148 MG/DL 04/30/2013 LIPID GRP TEST LDL 75 MG/DL 04/30/2013 LIPID GRP CHOL 151 MG/DL 04/30/2013 LIPID GRP RCHOL/HDL 3.28 RATIO 04/30/2013 TSH 3326697 TSH 3.341 uIU/ML 11/29/2012 CBC 9096345 WBC 8.4 10e9/L 11/29/2012 CBC 4697084 RBC 4.77 10e12/L 11/29/2012 CBC 4241449 HGB 14.9 g/dL 11/29/2012 CBC 9693211 HCT DET 44.2 % 11/29/2012 CBC 3243769 MCV 92.7 fL 11/29/2012 CBC 0180827 MCH 31.2 pg 11/29/2012 CBC 0676978 MCHC 33.7 g/dL 11/29/2012 CBC 7681347 PLT 253 10e9/L 11/29/2012 CBC 5830917 MPV 11.8 fL 11/29/2012 CBC 0707471 LARA % 54.9 % 11/29/2012 CBC 3367952 LY % 29.0 % 11/29/2012 CBC 2336802 MON % 10.4 % 11/29/2012 CBC 9021963 EOS % 5.1 % 11/29/2012 CBC 9213902 BASO % 0.6 % 11/29/2012 CBC 5480686 RDW 13.8 % 11/29/2012 CBC 9156201 ABS LARA 4.61 10e9/L 11/29/2012 CBC 4405519 ABS LYMPH 2.44 10e9/L 11/29/2012 CBC 8501706 ABS MONO 0.87 10e9/L 11/29/2012 CBC 7191299 ABS EOS 0.43 10e9/L 11/29/2012 CBC 2767350 ABS BASO 0.05 10e9/L 11/29/2012 CBC 2079232 RDW-SD 45.9 fL 11/29/2012 CHEM 14 4740929 AST 25 U/L 11/29/2012 CHEM 14 3636148 ALT 26 IU/L 11/29/2012 CHEM 14 1043634 BUN 25 MG/DL 11/29/2012 CHEM 14 2575808 ALBUMIN 4.4 GM/DL 11/29/2012 CHEM 14 4327801 CHLORIDE 106 MMOL/L 11/29/2012 CHEM 14 8755029 BILI TOT 0.4 MG/DL 11/29/2012 CHEM 14 8122092 ALK PHOS 86 U/L 11/29/2012 CHEM 14 0877983 SODIUM 141 MMOL/L 11/29/2012 CHEM 14 1162137 CREATININE 0.80 MG/DL 11/29/2012 CHEM 14 5662218 CALCIUM 9.7 MG/DL 11/29/2012 CHEM 14 1638842 POTASSIUM 4.0 MMOL/L 11/29/2012 CHEM 14 4679673 PROT TOT 6.6 GM/DL 11/29/2012 CHEM 14 4456177 GLUCOSE 112 MG/DL 11/29/2012 CHEM 14 5425993 BICARB 29 MMOL/L 11/29/2012 CHEM 14 1558670 ANION GAP 6 MEQ/L 11/29/2012 A1C HPLC 5075346 A1C HPLC 60128-3 5.5 % 11/29/2012 LIPID GRP HDL TEST 54 MG/DL 11/29/2012 LIPID GRP TRIG 77 MG/DL 11/29/2012 LIPID GRP TEST LDL 78 MG/DL 11/29/2012 LIPID GRP CHOL 147 MG/DL 11/29/2012 LIPID GRP RCHOL/HDL 2.72 RATIO 11/29/2012 FREE T4 0931556 FREE T4 1.23 NG/DL 11/29/2012 GFR CALC 1562218 GFR AA >60 ML/MIN 11/29/2012 GFR CALC 9668035 GFR NON-AA >60 ML/MIN 11/29/2012 CHEM 14 8925292 AST 23 U/L 08/07/2012 CHEM 14 7642965 ALT 34 IU/L 08/07/2012 CHEM 14 0109813 BUN 26 MG/DL 08/07/2012 CHEM 14 6443664 ALBUMIN 4.4 GM/DL 08/07/2012 CHEM 14 7807104 CHLORIDE 105 MMOL/L 08/07/2012 CHEM 14 3916902 BILI TOT 0.5 MG/DL 08/07/2012 CHEM 14 8295384 ALK PHOS 79 U/L 08/07/2012 CHEM 14 9585952 SODIUM 140 MMOL/L 08/07/2012 CHEM 14 4096403 CREATININE 0.71 MG/DL 08/07/2012 CHEM 14 3358710 CALCIUM 10.4 MG/DL 08/07/2012 CHEM 14 2514422 POTASSIUM 3.8 MMOL/L 08/07/2012 CHEM 14 2369090 PROT TOT 6.8 GM/DL 08/07/2012 CHEM 14 7825771 GLUCOSE 104 MG/DL 08/07/2012 CHEM 14 4772124 BICARB 27 MMOL/L 08/07/2012 CHEM 14 2161218 ANION GAP 8 MEQ/L 08/07/2012 A1C HPLC 8081235 A1C HPLC 64709-3 5.4 % 08/07/2012 FREE T4 9503290 FREE T4 1.11 NG/DL 08/07/2012 LIPID GRP HDL TEST 50 MG/DL 08/07/2012 LIPID GRP TRIG 127 MG/DL 08/07/2012 LIPID GRP TEST LDL 93 MG/DL 08/07/2012 LIPID GRP CHOL 168 MG/DL 08/07/2012 LIPID GRP RCHOL/HDL 3.36 RATIO 08/07/2012 CBC 1928589 WBC 8.7 10e9/L 08/07/2012 CBC 9796152 RBC 4.67 10e12/L 08/07/2012 CBC 2912161 HGB 14.4 g/dL 08/07/2012 CBC 1317840 HCT DET 42.8 % 08/07/2012 CBC 1414382 MCV 91.6 fL 08/07/2012 CBC 0556798 MCH 30.8 pg 08/07/2012 CBC 8367596 MCHC 33.6 g/dL 08/07/2012 CBC 3298352 PLT 271 10e9/L 08/07/2012 CBC 0953882 MPV 12.3 fL 08/07/2012 CBC 3820617 LARA % 50.6 % 08/07/2012 CBC 8447954 LY % 34.9 % 08/07/2012 CBC 0789632 MON % 9.1 % 08/07/2012 CBC 5791469 EOS % 5.1 % 08/07/2012 CBC 8236418 BASO % 0.3 % 08/07/2012 CBC 8652417 RDW 13.6 % 08/07/2012 CBC 7426167 ABS LARA 4.40 10e9/L 08/07/2012 CBC 9813212 ABS LYMPH 3.04 10e9/L 08/07/2012 CBC 4484777 ABS MONO 0.79 10e9/L 08/07/2012 CBC 8260280 ABS EOS 0.44 10e9/L 08/07/2012 CBC 2708670 ABS BASO 0.03 10e9/L 08/07/2012 CBC 4385210 RDW-SD 44.1 fL 08/07/2012 TSH 3004796 TSH 7.419 uIU/ML 08/07/2012 GFR CALC 8003916 GFR AA >60 ML/MIN 08/07/2012 GFR CALC 1304897 GFR NON-AA >60 ML/MIN 08/07/2012 A1C HPLC 3339607 A1C HPLC 04352-8 5.3 % 02/21/2012 TSH 3207196 TSH 0.832 uIU/ML 02/16/2012 FREE T4 6939625 FREE T4 1.04 NG/DL 02/16/2012 GFR CALC 6511497 GFR AA >60 ML/MIN 02/16/2012 GFR CALC 9306444 GFR NON-AA >60 ML/MIN 02/16/2012 BMP GLUCOSE 112 MG/DL 02/16/2012 BMP CREATININE 0.65 MG/DL 02/16/2012 BMP BUN 17 MG/DL 02/16/2012 BMP SODIUM 144 MMOL/L 02/16/2012 BMP POTASSIUM 4.0 MMOL/L 02/16/2012 BMP CHLORIDE 107 MMOL/L 02/16/2012 BMP BICARB 29 MMOL/L 02/16/2012 BMP ANION GAP 8 MEQ/L 02/16/2012 BMP 1566120 CALCIUM 9.5 MG/DL 02/16/2012 CBC 5377931 WBC 7.1 10e9/L 02/16/2012 CBC 8644246 RBC 4.47 10e12/L 02/16/2012 CBC 0212136 HGB 13.5 g/dL 02/16/2012 CBC 6805660 HCT DET 40.7 % 02/16/2012 CBC 8693995 MCV 91.1 fL 02/16/2012 CBC 2970691 MCH 30.2 pg 02/16/2012 CBC 5752323 MCHC 33.2 g/dL 02/16/2012 CBC 2488191 PLT 238 10e9/L 02/16/2012 CBC 1887234 MPV 11.4 fL 02/16/2012 CBC 5157889 LARA % 55.7 % 02/16/2012 CBC 8732029 LY % 29.6 % 02/16/2012 CBC 4040741 MON % 9.2 % 02/16/2012 CBC 7371477 EOS % 5.1 % 02/16/2012 CBC 9310750 BASO % 0.4 % 02/16/2012 CBC 8871143 RDW 13.0 % 02/16/2012 CBC 6862432 ABS LARA 3.95 10e9/L 02/16/2012 CBC 5444884 ABS LYMPH 2.10 10e9/L 02/16/2012 CBC 2512735 ABS MONO 0.65 10e9/L 02/16/2012 CBC 2220395 ABS EOS 0.36 10e9/L 02/16/2012 CBC 1910137 ABS BASO 0.03 10e9/L 02/16/2012 CBC [id number] RDW-SD 42.4 fL 02/16/2012 URINALYSIS NONAUTO W/O SCOPE 65024 Specific [place] 1.015 DateTime(Free Text in Aprima) URINALYSIS NONAUTO W/O SCOPE 67329 PH 7 DateTime(Free Text in Aprima) URINALYSIS NONAUTO W/O SCOPE 09726 GLUCOSE neg DateTime(Free Text in Aprima) URINALYSIS NONAUTO W/O SCOPE 64627 Protein 1+ DateTime(Free Text in Aprima) URINALYSIS NONAUTO W/O SCOPE 20618 Blood neg DateTime(Free Text in Aprima) URINALYSIS NONAUTO W/O SCOPE 01454 Bilirubin neg DateTime(Free Text in Aprima) URINALYSIS NONAUTO W/O SCOPE 54391 Ketones neg DateTime(Free Text in Aprima) URINALYSIS NONAUTO W/O SCOPE 85490 Urobilinogen neg DateTime(Free Text in Aprima) URINALYSIS NONAUTO W/O SCOPE 70658 Nitrite postive DateTime(Free Text in Aprima) URINALYSIS NONAUTO W/O SCOPE 04015 Leukocytes 3+ DateTime(Free Text in Aprima) URINALYSIS NONAUTO W/O SCOPE 21207 Specific [place] 1.030 DateTime(Free Text in Aprima) URINALYSIS NONAUTO W/O SCOPE 20559 PH 6 DateTime(Free Text in Aprima) URINALYSIS NONAUTO W/O SCOPE 68030 GLUCOSE neg DateTime(Free Text in Aprima) URINALYSIS NONAUTO W/O SCOPE 06011 Protein neg DateTime(Free Text in Aprima) URINALYSIS NONAUTO W/O SCOPE 72402 Blood neg DateTime(Free Text in Aprima) URINALYSIS NONAUTO W/O SCOPE 77858 Bilirubin neg DateTime(Free Text in Aprima) URINALYSIS NONAUTO W/O SCOPE 62139 Ketones neg DateTime(Free Text in Aprima) URINALYSIS NONAUTO W/O SCOPE 62076 Urobilinogen neg DateTime(Free Text in Aprima) URINALYSIS NONAUTO W/O SCOPE 80550 Nitrite neg DateTime(Free Text in Aprima) URINALYSIS NONAUTO W/O SCOPE 27812 Leukocytes trace DateTime(Free Text in Aprima) URINALYSIS NONAUTO W/O SCOPE 31989 Specific [place] 1.005 DateTime(Free Text in Aprima) URINALYSIS NONAUTO W/O SCOPE 87713 PH 5 DateTime(Free Text in Aprima) URINALYSIS NONAUTO W/O SCOPE 39523 GLUCOSE neg DateTime(Free Text in Aprima) URINALYSIS NONAUTO W/O SCOPE 38457 Protein neg DateTime(Free Text in Aprima) URINALYSIS NONAUTO W/O SCOPE 69399 Blood neg DateTime(Free Text in Aprima) URINALYSIS NONAUTO W/O SCOPE 57780 Bilirubin neg DateTime(Free Text in Aprima) URINALYSIS NONAUTO W/O SCOPE 42711 Ketones neg DateTime(Free Text in Aprima) URINALYSIS NONAUTO W/O SCOPE 93757 Urobilinogen neg DateTime(Free Text in Aprima) URINALYSIS NONAUTO W/O SCOPE 35219 Nitrite neg DateTime(Free Text in Aprima) URINALYSIS NONAUTO W/O SCOPE 36846 Leukocytes neg DateTime(Free Text in Aprima) UA 44152 Specific [place] 1.030 DateTime(Free Text in Novima) UA 20090 PH 5 DateTime(Free Text in Aprima) UA 15885 GLUCOSE neg DateTime(Free Text in Aprima) UA 79784 Protein trace DateTime(Free Text in Aprima) UA 93934 Blood large DateTime(Free Text in Aprima) UA 23389 Bilirubin neg DateTime(Free Text in Aprima) UA 89311 Ketones neg DateTime(Free Text in Aprima) UA 38352 Urobilinogen neg DateTime(Free Text in Aprima) UA 65951 Nitrite neg DateTime(Free Text in Aprima) UA 68453 Leukocytes large DateTime(Free Text in ) Review of Systems System Result Effective Dates Constitutional No recent illness 02/20/2019 Constitutional No [...] affect 02/20/2019 None Full Exam - General 1995 Constitutional general appearance Overall: well developed 01/29/2019 None Full Exam - General 1995 Constitutional general appearance Overall: in no acute distress 01/29/2019 None Full Exam - General 1995 Constitutional general appearance Overall: well nourished 01/29/2019 None Full Exam - General 1995 Eyes conjunctiva/eyelids Overall: conjunctiva clear 01/29/2019 None Full Exam - General 1995 Eyes conjunctiva/eyelids Overall: cornea clear 01/29/2019 None Full Exam - General 1994 Eyes conjunctiva/eyelids Overall: eyelids normal 01/29/2019 None Full Exam - General 1994 Ears/Nose/Throat lips/teeth/gingiva Overall: benign lips 01/29/2019 None Full Exam - General 1995 Ears/Nose/Throat [...] time 03/19/2015 None Full Exam - General 1995 Psychiatric [...] time 06/05/2014 None Full Exam - General 1995 Neurologic cranial nerves Overall: crainial nerves 2 - 12 grossly intact 06/05/2014 None Full Exam - General 1994 Musculoskeletal head and neck Cervical Spine: tender 06/05/2014 tender left and right cervical muscles Full Exam - General 1995 Musculoskeletal spine, ribs and pelvis Overall: spine benign 06/05/2014 None Full Exam - General 1995 Constitutional general appearance Overall: well developed 04/03/2014 None Full Exam - General 1995 Constitutional general appearance Overall: in no acute distress 04/03/2014 None Full Exam - General 1995 Constitutional general appearance Overall: well nourished 04/03/2014 [...] distress 09/24/2013 None Full Exam - General 1994 Constitutional general appearance Overall: well nourished 09/24/2013 [...] developed 06/03/2013 None Full Exam - General 1994 Constitutional general appearance Overall: in no acute distress 06/03/2013 None Full Exam - General 1994 Constitutional general appearance Overall: well nourished 06/03/2013 None Full Exam - General 1994 Eyes pupils and irises Overall: pupils equal, round, reactive to light and accomodation 06/03/2013 None Full Exam - General 1994 Ears/Nose/Throat otoscopic exam Overall: external auditory canals clear 06/03/2013 None Full Exam - General 1994 Ears/Nose/Throat oral cavity/pharynx/larynx Overall: oral mucosa clear 06/03/2013 None Full Exam - General 1994 Ears/Nose/Throat oral cavity/pharynx/larynx Overall: oropharyngeal mucosa clear 06/03/2013 None Full Exam - General 1994 Ears/Nose/Throat oral cavity/pharynx/larynx Overall: no masses 06/03/2013 None Full Exam - General 1994 Respiratory auscultation Overall: breath sounds clear bilaterally 06/03/2013 None Full Exam - General 1994 Respiratory respiratory effort/rhythm Overall: no retractions 06/03/2013 None Full Exam - General 1994 Respiratory respiratory effort/rhythm Overall: normal rate 06/03/2013 None Full Exam - General 1995 Cardiovascular auscultation of heart Overall: regular rate 06/03/2013 None Full Exam - General 1995 Cardiovascular auscultation of heart Overall: normal heart sounds 06/03/2013 None Full Exam - General 1995 Cardiovascular auscultation of heart Overall: no murmurs 06/03/2013 None Full Exam - General 1995 Abdomen abdominal exam Overall: no tenderness 06/03/2013 None Full Exam - General 1995 Abdomen abdominal exam Overall: normal bowel sounds 06/03/2013 None Full Exam - General 1995 Musculoskeletal gait and station Overall: normal gait 06/03/2013 None Full Exam - General 1995 Musculoskeletal gait and station Overall: normal station 06/03/2013 None Full Exam - General 1995 Neurologic gait Overall: no ataxia, no unsteadiness 06/03/2013 None Full Exam - General 1995 Neurologic cranial nerves Overall: crainial nerves 2 - 12 grossly intact 06/03/2013 None Full Exam - General 1994 Psychiatric orientation/consciousness Overall: oriented to person, place and time 06/03/2013 None Full Exam - General 1994 Psychiatric mood and affect Overall: normal mood and affect 06/03/2013 None Full Exam - General 1995 Psychiatric appearance Overall: well-groomed, good eye contact 06/03/2013 None Full Exam - General 1995 Ears/Nose/Throat otoscopic exam Tympanic membrane: air-fluid level 06/03/2013 None Full Exam - General 1995 Ears/Nose/Throat otoscopic exam Tympanic membrane: bulging 06/03/2013 None Full Exam - General 1995 Constitutional general appearance Overall: well nourished 05/07/2013 None Full Exam - General 1994 Constitutional general appearance Overall: well developed 05/07/2013 None Full Exam - General 1994 Constitutional general appearance Overall: in no acute distress 05/07/2013 None Full Exam - General 1994 Eyes pupils and irises Overall: pupils equal, round, reactive to light and accomodation 05/07/2013 None Full Exam - General 1995 [...] masses 05/07/2013 None Full Exam - General 1995 Respiratory auscultation Overall: breath sounds clear bilaterally 05/07/2013 None Full Exam - General 1995 Respiratory respiratory effort/rhythm Overall: no retractions 05/07/2013 None Full Exam - General 1995 Respiratory respiratory effort/rhythm Overall: normal rate 05/07/2013 None Full Exam - General 1995 Cardiovascular auscultation of heart Overall: regular rate 05/07/2013 None Full Exam - General 1995 Cardiovascular auscultation of heart Overall: normal heart sounds 05/07/2013 None Full Exam - General 1995 Cardiovascular auscultation of heart Overall: no murmurs 05/07/2013 None Full Exam - General 1995 Abdomen abdominal exam Overall: no tenderness 05/07/2013 None Full Exam - General 1995 Abdomen abdominal exam Overall: normal bowel sounds 05/07/2013 None Full Exam - General 1995 Neurologic gait Overall: no ataxia, no unsteadiness 05/07/2013 None Full Exam - General 1995 Neurologic cranial nerves Overall: crainial nerves 2 - 12 grossly intact 05/07/2013 None Full Exam - General 1994 Psychiatric orientation/consciousness Overall: oriented to person, place and time 05/07/2013 None Full Exam - General 1994 Psychiatric mood and affect Overall: normal mood and affect 05/07/2013 None Full Exam - General 1994 Psychiatric appearance Overall: well-groomed, good eye contact 05/07/2013 None Full Exam - General 1994 Musculoskeletal gait and station Overall: normal station 05/07/2013 None Full Exam - General 1994 Musculoskeletal gait and station Overall: normal gait 05/07/2013 None Full Exam - General 1994 Constitutional general appearance Overall: well developed 12/03/2012 None Full Exam - General 1994 Constitutional general appearance Overall: in no acute distress 12/03/2012 None Full Exam - General 1994 Constitutional general appearance Overall: well nourished 12/03/2012 None Full Exam - General 1994 Eyes conjunctiva/eyelids Overall: conjunctiva clear 12/03/2012 None Full Exam - General 1995 Eyes conjunctiva/eyelids Overall: cornea clear 12/03/2012 None Full Exam - General 1994 Eyes conjunctiva/eyelids Overall: eyelids normal 12/03/2012 None Full Exam - General 1995 Ears/Nose/Throat external ear Overall: normal appearance 12/03/2012 None Full Exam - General 1995 Ears/Nose/Throat external ear Overall: no masses 12/03/2012 None Full Exam - General 1995 Ears/Nose/Throat external ear Overall: normal mastoids 12/03/2012 [...] 12/03/2012 None Full Exam - General 1994 Neck inspection of neck Overall: normal size 12/03/2012 None Full Exam - General 1994 Neck inspection of neck Overall: normal appearance 12/03/2012 None Full Exam - General 1994 Neck inspection of neck Overall: no masses 12/03/2012 None Full Exam - General 1994 Neck inspection of neck Overall: absence of swelling 12/03/2012 None Full Exam - General 1994 Respiratory auscultation Overall: breath sounds clear bilaterally 12/03/2012 None Full Exam - General 1994 Respiratory respiratory effort/rhythm Overall: no retractions 12/03/2012 None Full Exam - General 1994 Respiratory respiratory effort/rhythm Overall: normal rate 12/03/2012 [...] distress 09/10/2012 None Full Exam - General 1995 Constitutional general appearance Overall: well nourished 09/10/2012 None Full Exam - General 1994 Eyes conjunctiva/eyelids Overall: conjunctiva clear 09/10/2012 None Full Exam - General 1995 Eyes conjunctiva/eyelids Overall: cornea clear 09/10/2012 None Full Exam - General 1995 Eyes conjunctiva/eyelids Overall: eyelids normal 09/10/2012 None Full Exam - General 1995 Ears/Nose/Throat external ear Overall: normal appearance 09/10/2012 None Full Exam - General 1995 Ears/Nose/Throat external ear Overall: no masses 09/10/2012 None Full Exam - General 1994 Ears/Nose/Throat external ear Overall: normal mastoids 09/10/2012 [...] normal 08/08/2012 None Full Exam - General 1994 Ears/Nose/Throat external ear Overall: normal appearance 08/08/2012 [...] time 08/08/2012 None Full Exam - General 1995 Ears/Nose/Throat otoscopic exam Overall: external auditory canals clear 02/15/2012 None Full Exam - General 1995 Ears/Nose/Throat oral cavity/pharynx/larynx Overall: oropharyngeal mucosa clear 02/15/2012 None Full Exam - General 1995 Ears/Nose/Throat oral cavity/pharynx/larynx Overall: no masses 02/15/2012 None Full Exam - General 1995 Ears/Nose/Throat [...] mastoids 02/15/2012 None Full Exam - General 1995 Ears/Nose/Throat [...] Procedure Codes Date THER/PROPH/DIAG INJ SC/IM CPT-4: 97749 02/20/2019 ROCEPHIN, PER 250 MG CPT- 4: J0696 02/20/2019 URINALYSIS NONAUTO W/O SCOPE CPT-4: 84380 07/10/2018 TRIAMCINOLONE ACET INJ NOS CPT-4: J3301 05/28/2018 ROCEPHIN, PER 250 MG CPT- 4: J0696 05/28/2018 ROCEPHIN, PER 250 MG CPT- 4: J0696 01/19/2018 TRIAMCINOLONE ACET INJ NOS CPT-4: J3301 01/19/2018 PPPS, SUBSEQ VISIT CPT- 4: G0439 11/23/2017 TRIAMCINOLONE ACET INJ NOS CPT-4: J3301 06/27/2017 THER/PROPH/DIAG INJ SC/IM CPT-4: 95272 04/20/2017 TRIAMCINOLONE ACET INJ NOS CPT-4: J3301 04/20/2017 TRIAMCINOLONE ACET INJ NOS CPT-4: J3301 03/14/2017 ROCEPHIN, PER 250 MG CPT- 4: J0696 03/14/2017 DESTRUCT PREMALG LESION CPT-4: 56698 12/05/2016 DESTRUCT PREMALG LES 2-14 CPT-4: 23084 12/05/2016 URINALYSIS NONAUTO W/O SCOPE CPT-4: 48835 11/28/2016 ROCEPHIN, PER 250 MG CPT- 4: J0696 11/28/2016 PPPS, SUBSEQ VISIT CPT- 4: G0439 11/07/2016 THER/PROPH/DIAG INJ SC/IM CPT-4: 94779 11/07/2016 TRIAMCINOLONE ACET INJ NOS CPT-4: J3301 11/07/2016 ROCEPHIN, PER 250 MG CPT- 4: J0696 11/07/2016 THER/PROPH/DIAG INJ SC/IM CPT-4: 91577 08/15/2016 TRIAMCINOLONE ACET INJ NOS CPT-4: J3301 08/15/2016 ROCEPHIN, PER 250 MG CPT- 4: J0696 08/15/2016 URINALYSIS NONAUTO W/O SCOPE CPT-4: 38326 05/05/2016 ROCEPHIN, PER 250 MG CPT- 4: J0696 12/07/2015 TRIAMCINOLONE ACET INJ NOS CPT-4: J3301 11/24/2015 ROCEPHIN, PER 250 MG CPT- 4: J0696 11/24/2015 THER/PROPH/DIAG INJ SC/IM CPT-4: 87982 11/24/2015 THER/PROPH/DIAG INJ SC/IM CPT-4: 99884 08/27/2015 KETOROLAC TROMETHAMINE INJ CPT-4: J1885 08/27/2015 PROMETHAZINE HCL INJECTION CPT-4: J2550 08/27/2015 THER/PROPH/DIAG INJ SC/IM CPT-4: 91339 08/10/2015 TRIAMCINOLONE ACET INJ NOS CPT-4: J3301 08/10/2015 ROCEPHIN, PER 250 MG CPT- 4: J0696 08/10/2015 C WOUN RTS (CULTURE OTHR SPECIMN AEROBIC) CPT-4: 49475 07/28/2015 THER/PROPH/DIAG INJ SC/IM CPT-4: 23035 03/19/2015 TRIAMCINOLONE ACET INJ NOS CPT-4: J3301 03/19/2015 ROCEPHIN, PER 250 MG CPT- 4: J0696 06/23/2014 TRIAMCINOLONE ACET INJ NOS CPT-4: J3301 06/23/2014 INJ TRIGGER POINT 1/2 MUSCL CPT-4: 96073 06/05/2014 URINALYSIS NONAUTO W/O SCOPE CPT-4: 73270 02/11/2014 URINALYSIS NONAUTO W/O SCOPE CPT-4: 81990 10/15/2013 ROCEPHIN, PER 250 MG CPT- 4: J0696 09/24/2013 THER/PROPH/DIAG INJ SC/IM CPT-4: 66799 09/19/2013 ROCEPHIN, PER 250 MG CPT- 4: J0696 09/19/2013 PRESCRIP TRANSMIT VIA ERX SY CPT-4: G8553 08/05/2013 ROCEPHIN, PER 250 MG CPT- 4: J0696 07/10/2013 THER/PROPH/DIAG INJ SC/IM CPT-4: 28025 07/10/2013 TRIAMCINOLONE ACET INJ NOS CPT-4: J3301 07/10/2013 PRESCRIP TRANSMIT VIA ERX SY CPT-4: G8553 07/10/2013 05620 EST. PATIENT, LEVEL III CPT-4: 27216 06/03/2013 PRESCRIP TRANSMIT VIA ERX SY CPT-4: G8553 06/03/2013 PRESCRIP TRANSMIT VIA ERX SY CPT-4: G8553 05/07/2013 ROUTINE VENIPUNCTURE CPT- 4: 30504 04/30/2013 ROUTINE VENIPUNCTURE CPT- 4: 70040 11/29/2012 TRIAMCINOLONE ACET INJ NOS CPT-4: J3301 09/24/2012 THER/PROPH/DIAG INJ SC/IM CPT-4: 05739 09/24/2012 URINALYSIS NONAUTO W/O SCOPE CPT-4: 49510 09/24/2012 PRESCRIP TRANSMIT VIA ERX SY CPT-4: G8553 09/24/2012 PRESCRIP TRANSMIT VIA ERX SY CPT-4: G8553 09/10/2012 PRESCRIP TRANSMIT VIA ERX SY CPT-4: G8553 08/08/2012 ROUTINE VENIPUNCTURE CPT- 4: 12369 08/07/2012 ROUTINE VENIPUNCTURE CPT- 4: 49013 02/16/2012 URINALYSIS NONAUTO W/O SCOPE CPT-4: 95507 02/15/2012 ROCEPHIN, PER 250 MG CPT- 4: J0696 02/15/2012 PRESCRIP TRANSMIT VIA ERX SY CPT-4: G8553 02/15/2012 ROUTINE VENIPUNCTURE CPT- 4: 44042 11/08/2011 ROCEPHIN, PER 250 MG CPT- 4: J0696 07/14/2011 THER/PROPH/DIAG INJ SC/IM CPT-4: 10924 07/14/2011 Influenza Virus Vaccine, Split Virus, >3 Yrs, IM CPT-4: 16411 05/23/2011 IMMUNIZATION ADMIN CPT- 4: 52850 05/23/2011 THER/PROPH/DIAG INJ SC/IM CPT-4: 61614 05/03/2011 ROCEPHIN, PER 250 MG CPT- 4: J0696 05/03/2011 TRIAMCINOLONE ACET INJ NOS CPT-4: J3301 05/03/2011 Vital Signs Date Vital 02/20/2019 Blood Pressure 1: 124/76 Code: 8480-6 BMI: 31.9 Code: 92538-7 Heart Rate 1: 67 bpm Height: 4'11" SpO2: 97% Weight: 158 lbs 01/29/2019 Blood Pressure 1: 138/88 Code: 8480-6 BMI: 31.9 Code: 70843-4 Heart Rate 1: 74 bpm Height: 4'11" SpO2: 94% Weight: 158 lbs 11/27/2018 Blood Pressure 1: 144/82 Code: 8480-6 Heart Rate 1: 67 bpm SpO2: 93% 11/16/2018 Blood Pressure 1: 168/100 Code: 8480-6 Heart Rate 1: 74 bpm SpO2: 96% 11/13/2018 Blood Pressure 1: 184/98 Code: 8480-6 BMI: 32.1 Code: 57494-2 Heart Rate 1: 68 bpm Height: 4'11" SpO2: 96% Weight: 159 lbs 10/30/2018 Blood Pressure 1: 158/98 Code: 8480-6 BMI: 31.7 Code: 22409-9 Heart Rate 1: 80 bpm Height: 4'11" SpO2: 96% Weight: 157 lbs 10/08/2018 Blood Pressure 1: 140/80 Code: 8480-6 BMI: 32.1 Code: 07108-4 Heart Rate 1: 92 bpm Height: 4'11" SpO2: 103% Weight: 159 lbs 07/16/2018 Blood Pressure 1: 142/80 Code: 8480-6 BMI: 31.1 Code: 08977-6 Heart Rate 1: 78 bpm Height: 4'11" SpO2: 98% Weight: 154 lbs 07/10/2018 Blood Pressure 1: 156/82 Code: 8480-6 BMI: 31.1 Code: 23901-4 Heart Rate 1: 63 bpm Height: 4'11" SpO2: 99% Weight: 154 lbs 05/28/2018 Blood Pressure 1: 142/80 Code: 8480-6 Heart Rate 1: 82 bpm Height: SpO2: 97% Temperature: 35.9 (C) / 96.6 (F) Weight: 02/07/2018 Height: Weight: 01/19/2018 Blood Pressure 1: 128/76 Code: 8480-6 BMI: 31.2 Code: 86459-7 Heart Rate 1: 71 bpm Height: 4'11" SpO2: 96% Temperature: 36.5 (C) / 97.7 (F) Weight: 154 lbs 8 oz 11/23/2017 Blood Pressure 1: 146/80 Code: 8480-6 BMI: 31.7 Code: 98679-5 Heart Rate 1: 64 bpm Height: 4'11" SpO2: 97% Waist Measure (cm): 89 cm Weight: 157 lbs 09/12/2017 Blood Pressure 1: 140/86 Code: 8480-6 Heart Rate 1: 62 bpm SpO2: 96% Temperature: 36.6 (C) / 97.8 (F) Weight: 153 lbs 07/25/2017 Blood Pressure 1: 140/72 Code: 8480-6 BMI: 31.3 Code: 06192-2 Heart Rate 1: 76 bpm Height: 4'11" SpO2: 97% Temperature: 37.2 (C) / 99.0 (F) Weight: 155 lbs 06/27/2017 Blood Pressure 1: 144/84 Code: 8480-6 BMI: 31.1 Code: 60249-0 Heart Rate 1: 63 bpm Height: 4'11" SpO2: 99% Temperature: 36.4 (C) / 97.6 (F) Weight: 154 lbs 05/08/2017 Blood Pressure 1: 142/86 Code: 8480-6 BMI: 30.9 Code: 24445-7 Height: 4'11" Temperature: 36.3 (C) / 97.4 (F) Weight: 153 lbs 03/14/2017 Blood Pressure 1: 146/82 Code: 8480-6 BMI: 30.9 Code: 42194-5 Heart Rate 1: 64 bpm Height: 4'11" SpO2: 94% Weight: 153 lbs 02/20/2017 Blood Pressure 1: 142/80 Code: 8480-6 BMI: 30.9 Code: 46915-7 Heart Rate 1: 75 bpm Height: 4'11" SpO2: 97% Weight: 153 lbs 02/06/2017 Blood Pressure 1: 138/90 Code: 8480-6 BMI: 31.5 Code: 80712-6 Heart Rate 1: 61 bpm Height: 4'11" SpO2: 98% Weight: 156 lbs 12/05/2016 Blood Pressure 1: 122/72 Code: 8480-6 Heart Rate 1: 59 bpm Height: 4'11" SpO2: 98% Weight: 11/28/2016 Blood Pressure 1: 154/86 Code: 8480-6 BMI: 31.3 Code: 28883-7 Heart Rate 1: 64 bpm Height: 4'11" SpO2: 94% Temperature: 36.2 (C) / 97.2 (F) Weight: 155 lbs 11/07/2016 Blood Pressure 1: 128/64 Code: 8480-6 BMI: 31.5 Code: 71860-9 Heart Rate 1: 59 bpm Height: 4'11" SpO2: 97% Weight: 156 lbs 08/15/2016 Blood Pressure 1: 110/62 Code: 8480-6 BMI: 31.5 Code: 36049-7 Heart Rate 1: 76 bpm Height: 4'11" SpO2: 97% Weight: 156 lbs 06/07/2016 Blood Pressure 1: 120/80 Code: 8480-6 BMI: 32.9 Code: 91549-2 Heart Rate 1: 63 bpm Height: 4'11" SpO2: 93% Temperature: 36.5 (C) / 97.7 (F) Weight: 163 lbs 03/15/2016 Blood Pressure 1: 90/42 Code: 8480-6 Heart Rate 1: 65 bpm SpO2: 94% 03/14/2016 Blood Pressure 1: 188/110 Code: 8480-6 Heart Rate 1: 68 bpm SpO2: 96% 02/22/2016 Blood Pressure 1: 158/80 Code: 8480-6 BMI: 32.7 Code: 12420-1 Heart Rate 1: 71 bpm Height: 4'11" SpO2: 95% Weight: 162 lbs 12/07/2015 Blood Pressure 1: 140/88 Code: 8480-6 BMI: 32.9 Code: 78991-0 Heart Rate 1: 99 bpm Height: 4'11" SpO2: 94% Temperature: 35.9 (C) / 96.6 (F) Weight: 163 lbs 11/24/2015 Blood Pressure 1: 144/78 Code: 8480-6 BMI: 33.7 Code: 61484-5 Heart Rate 1: 60 bpm Height: 4'11" SpO2: 98% Temperature: 36.6 (C) / 97.9 (F) Weight: 167 lbs 08/27/2015 Blood Pressure 1: 164/82 Code: 8480-6 BMI: 32.3 Code: 32691-4 Heart Rate 1: 60 bpm Height: 4'11" SpO2: 93% Weight: 160 lbs 08/10/2015 Blood Pressure 1: 130/60 Code: 8480-6 BMI: 32.5 Code: 05307-5 Heart Rate 1: 64 bpm Height: 4'11" SpO2: 97% Weight: 161 lbs 07/28/2015 Blood Pressure 1: 124/68 Code: 8480-6 BMI: 32.5 Code: 21201-7 Heart Rate 1: 69 bpm Height: 4'11" SpO2: 97% Weight: 161 lbs 06/11/2015 Blood Pressure 1: 148/80 Code: 8480-6 BMI: 32.9 Code: 33425-7 Heart Rate 1: 70 bpm Height: 4'11" SpO2: 94% Weight: 163 lbs 03/19/2015 Blood Pressure 1: 150/102 Code: 8480-6 Blood Pressure 2: 152/92 Code: 8480-6 BMI: 32.5 Code: 64718-2 Heart Rate 1: 71 bpm Height: 4'11" SpO2: 96% Weight: 161 lbs 01/07/2015 Blood Pressure 1: 126/84 Code: 8480-6 Heart Rate 1: 80 bpm Height: 4'11" 09/23/2014 Blood Pressure 1: 112/72 Code: 8480-6 BMI: 33.9 Code: 84796-9 Heart Rate 1: 72 bpm Height: 4'11" Weight: 168 lbs 08/05/2014 Blood Pressure 1: 140/86 Code: 8480-6 BMI: 33.3 Code: 45447-4 Height: 4'11" Weight: 165 lbs 06/23/2014 Blood Pressure 1: 132/70 Code: 8480-6 BMI: 32.9 Code: 90621-9 Heart Rate 1: 58 bpm Height: 4'11" Temperature: 36.0 (C) / 96.8 (F) Weight: 163 lbs 06/05/2014 Blood Pressure 1: 121/85 Code: 8480-6 BMI: 34.3 Code: 22986-3 Height: 4'11" Weight: 170 lbs 04/03/2014 Blood Pressure 1: 128/80 Code: 8480-6 Heart Rate 1: 88 bpm Weight: 167 lbs 03/07/2014 Blood Pressure 1: 122/82 Code: 8480-6 BMI: 33.9 Code: 15899-1 Heart Rate 1: 68 bpm Height: 4'11" Weight: 168 lbs 11/21/2013 Blood Pressure 1: 100/58 Code: 8480-6 BMI: 33.7 Code: 25351-4 Heart Rate 1: 64 bpm Height: 4'11" Weight: 167 lbs 09/24/2013 Blood Pressure 1: 148/88 Code: 8480-6 Heart Rate 1: 68 bpm Weight: 09/19/2013 Blood Pressure 1: 120/80 Code: 8480-6 BMI: 33.9 Code: 25536-8 Heart Rate 1: 80 bpm Height: 4'11" Temperature: 36.9 (C) / 98.5 (F) Weight: 168 lbs 08/05/2013 Blood Pressure 1: 128/80 Code: 8480-6 BMI: 34.3 Code: 65894-3 Heart Rate 1: 64 bpm Height: 4'11" Temperature: 36.2 (C) / 97.2 (F) Weight: 170 lbs 07/10/2013 Blood Pressure 1: 120/84 Code: 8480-6 BMI: 36.0 Code: 39582-7 Heart Rate 1: 90 bpm Height: 4'11" SpO2: 97% Temperature: 36.8 (C) / 98.2 (F) Weight: 178 lbs 06/03/2013 Blood Pressure 1: 136/94 Code: 8480-6 BMI: 34.7 Code: 03704-4 Heart Rate 1: 68 bpm Height: 4'11" Temperature: 36.7 (C) / 98.0 (F) Weight: 172 lbs 05/13/2013 Blood Pressure 1: 132/90 Code: 8480-6 Heart Rate 1: 68 bpm 05/07/2013 Blood Pressure 1: 168/100 Code: 8480-6 BMI: 34.3 Code: 75082-9 Heart Rate 1: 76 bpm Height: 4'11" Weight: 170 lbs 12/03/2012 Blood Pressure 1: 142/78 Code: 8480-6 BMI: 33.5 Code: 59602-2 Heart Rate 1: 76 bpm Height: 4'11" Weight: 166 lbs 09/24/2012 Blood Pressure 1: 116/70 Code: 8480-6 Heart Rate 1: 68 bpm Respiratory Rate: 16 bpm Temperature: 36.9 (C) / 98.4 (F) Weight: 162 lbs 09/10/2012 Blood Pressure 1: 116/80 Code: 8480-6 BMI: 33.7 Code: 21588-0 Heart Rate 1: 76 bpm Height: 4'11" [...] 1: 149/85 Code: 8480-6 BMI: 32.9 Code: 18077-5 Heart Rate 1: 79 bpm Height: 4'11" Weight: 164 lbs 05/03/2011 Blood Pressure 1: 122/79 Code: 8480-6 BMI: 30.8 Code: 14951-8 Heart Rate 1: 72 bpm Height: 5'1" Weight: 163 lbs 04/25/2011 Blood Pressure 1: 137/84 Code: 8480-6 BMI: 31.0 Code: 27219-7 Heart Rate 1: 63 bpm Height: 5'1" Respiratory Rate: 20 bpm Weight: 164 lbs Functional Status No Functional Status data History of Present Illness Symptom Name Status Result Effective Date Notes Onset and Resolution sudden in onset 02/20/2019 [...] None chest congestion Triggers ill contacts 01/19/2018 grandkids have strep chest congestion Pertinent Findings cough [...] days ago 02/15/2012 while visiting mother in [place] had uti and was put on pyridum [...] surg in december. then took trip to [facility] to see mother and has had [...] Quality chronic 08/01/2011 states went shopping on Thanksgiving over night without taking any of medications [...] data Encounters Encounter Performer Location Codes Date EST. PATIENT, LEVEL III Diagnosis: Cellulitis of left upper limb[ICD10: L03.114] Isabelle Goldman MD, [facility] CPT-4: 69923 02/20/2019 ([id number]) 51911 EST. PATIENT, LEVEL III Diagnosis: Functional diarrhea[ICD10: K59.1] [facility] CPT- 4: 97782 01/29/2019 ([id number]) Miscellaneous no charge Diagnosis: Essential (primary) hypertension[ICD10: I10] [facility] CPT-4: 09636 11/16/2018 ([id number]) 32412 EST. PATIENT, LEVEL III Diagnosis: Essential (primary) hypertension[ICD10: I10] [facility] CPT-4: 10898 11/13/2018 ([id number]) 75360 EST. PATIENT, LEVEL IV Diagnosis: Essential (primary) hypertension[ICD10: I10] Diagnosis: Mixed hyperlipidemia[ICD10: E78.2] Diagnosis: Hypothyroidism, unspecified[ICD10: E03.9] Shahida Goldman MD, [facility] CPT-4: 44263 10/30/2018 32751 EST. PATIENT, LEVEL III Diagnosis: Other mucopurulent conjunctivitis, bilateral[ICD10: H10.023] Diagnosis: Other allergic rhinitis[ICD10: J30.89] Shahida Goldman MD, [facility] CPT-4: 60654 10/08/2018 35002 EST. PATIENT, LEVEL III Diagnosis: Essential (primary) hypertension[ICD10: I10] Diagnosis: Generalized anxiety disorder[ICD10: F41.1] Isabelle Goldman MD, [facility] CPT-4: 81691 07/16/2018 ([id number]) 48406 EST. PATIENT, LEVEL III Diagnosis: Acute recurrent maxillary sinusitis[ICD10: J01.01] Diagnosis: Frequency of micturition[ICD10: R35.0] Diagnosis: Low back pain[ICD10: M54.5] Shahida Goldman MD, [facility] CPT-4: 88455 07/10/2018 ([id number]) 09446 EST. PATIENT, LEVEL III Diagnosis: Acute recurrent maxillary sinusitis[ICD10: J01.01] Shahida Goldman MD, [facility] CPT-4: 25375 05/28/2018 ([id number]) Miscellaneous no charge Diagnosis: Laceration without foreign body, left lower leg, subsequent encounter[ICD10: S81.812D] Diagnosis: Laceration without foreign body, right lower leg, subsequent encounter[ICD10: S81.811D] Isabelle Goldman MD, [facility] CPT-4: 21966 02/08/2018 [id number] EST. PATIENT, LEVEL III Diagnosis: Cellulitis of left lower limb[ICD10: L03.116] Diagnosis: Cellulitis of right lower limb[ICD10: L03.115] Diagnosis: Laceration without foreign body, left lower leg, initial encounter[ICD10: S81.812A] Diagnosis: Laceration without foreign body, right lower leg, initial encounter[ICD10: S81.811A] Isabelle Goldman MD, [facility] CPT-4: 22236 02/07/2018 ([id number]) 61520 EST. PATIENT, LEVEL IV Diagnosis: Primary generalized (osteo)arthritis[ICD10: M15.0] Diagnosis: Acute recurrent maxillary sinusitis[ICD10: J01.01] Diagnosis: Low back pain[ICD10: M54.5] Diagnosis: Other allergic rhinitis[ICD10: J30.89] Diagnosis: Obstructive sleep apnea (adult) (pediatric)[ICD10: G47.33] Shahida Goldman MD, [facility] CPT-4: 12940 01/19/2018 [id number] EST. PATIENT, LEVEL IV Diagnosis: Diarrhea, unspecified[ICD10: R19.7] Diagnosis: Generalized abdominal pain[ICD10: R10.84] Diagnosis: Other allergic rhinitis[ICD10: J30.89] Diagnosis: Other acute sinusitis[ICD10: J01.80] Isabelle Goldman MD, [facility] CPT- 4: 61149 09/12/2017 99832 EST. PATIENT, LEVEL III Diagnosis: Acute laryngopharyngitis[ICD10: J06.0] Diagnosis: Other allergic rhinitis[ICD10: J30.89] Diagnosis: Cough[ICD10: R05] Diagnosis: Wheezing[ICD10: R06.2] Isabelle Goldman MD, [facility] CPT-4: 86271 07/25/2017 ([id number]) 96705 EST. PATIENT, LEVEL IV Diagnosis: Acute recurrent maxillary sinusitis[ICD10: J01.01] Diagnosis: Cervicalgia[ICD10: M54.2] Diagnosis: Diarrhea, unspecified[ICD10: R19.7] Shahida Goldman MD, [facility] CPT-4: 99479 06/27/2017 ([id number]) 75545 EST. PATIENT, LEVEL III Diagnosis: Chronic maxillary sinusitis[ICD10: J32.0] Diagnosis: Gastro-esophageal reflux disease without esophagitis[ICD10: K21.9] Shahida Goldman MD, [facility] CPT-4: 63048 05/08/2017 ([id number]) 45637 EST. PATIENT, LEVEL III Diagnosis: Acute recurrent maxillary sinusitis[ICD10: J01.01] Shahida Goldman MD, [facility] CPT-4: 81110 03/14/2017 22151 EST. PATIENT, LEVEL IV Diagnosis: Epigastric pain[ICD10: R10.13] Diagnosis: Left upper quadrant pain[ICD10: R10.12] Diagnosis: Left lower quadrant pain[ICD10: R10.32] Isabelle Goldman MD, [facility] CPT-4: 05173 02/20/2017 ([id number]) 79706 EST. PATIENT, LEVEL IV Diagnosis: Generalized anxiety disorder[ICD10: F41.1] Diagnosis: Major depressive disorder, recurrent, moderate[ICD10: F33.1] Diagnosis: Left upper quadrant pain[ICD10: R10.12] Diagnosis: Epigastric pain[ICD10: R10.13] Diagnosis: Actinic keratosis[ICD10: L57.0] Melba Goldman MD, [facility] CPT-4: 33648 02/06/2017 ([id number]) 59182 EST. PATIENT, LEVEL III Diagnosis: Actinic keratosis[ICD10: L57.0] Diagnosis: Major depressive disorder, recurrent, moderate[ICD10: F33.1] Melba Goldman MD, [facility] CPT-4: 20285 12/05/2016 ([id number]) 68617 EST. PATIENT, LEVEL III Diagnosis: Acute recurrent maxillary sinusitis[ICD10: J01.01] Diagnosis: Dysuria[ICD10: R30.0] Shahida Goldman MD, [facility] CPT-4: 34105 11/28/2016 53980 EST. PATIENT, LEVEL IV Diagnosis: Other acute sinusitis[ICD10: J01.80] Diagnosis: Acute laryngopharyngitis[ICD10: J06.0] Diagnosis: Other allergic rhinitis[ICD10: J30.89] Isabelle Goldman MD, [facility] CPT- 4: 26189 08/15/2016 ([id number]) 44633 EST. PATIENT, LEVEL III Diagnosis: Acute recurrent maxillary sinusitis[ICD10: J01.01] Diagnosis: Low back pain[ICD10: M54.5] Shahida Goldman MD, [facility] CPT-4: 65547 06/07/2016 ([id number]) Miscellaneous no charge Diagnosis: Essential (primary) hypertension[ICD10: I10] Shahida Goldman MD, [facility] CPT-4: 83423 03/15/2016 19773 EST. PATIENT, LEVEL IV Diagnosis: Essential (primary) hypertension[ICD10: I10] Diagnosis: Headache[ICD10: R51] Diagnosis: Generalized anxiety disorder[ICD10: F41.1] Shahida Goldman MD, [facility] CPT-4: 39578 03/14/2016 08818 EST. PATIENT, LEVEL III Diagnosis: Laceration without foreign body, left lower leg, initial encounter[ICD10: S81.812A] Isabelle Goldman MD, [facility] CPT-4: 58938 02/22/2016 ([id number]) 34237 EST. PATIENT, LEVEL III Diagnosis: Acute recurrent maxillary sinusitis[ICD10: J01.01] Diagnosis: Cough[ICD10: R05] Diagnosis: Allergic rhinitis due to pollen[ICD10: J30.1] Shahida Goldman MD, [facility] CPT-4: 24587 12/07/2015 ([id number]) 31450 EST. PATIENT, LEVEL IV Diagnosis: Essential (primary) hypertension[ICD10: I10] Diagnosis: Acute recurrent maxillary sinusitis[ICD10: J01.01] Diagnosis: Generalized anxiety disorder[ICD10: F41.1] Diagnosis: Cervicalgia[ICD10: M54.2] Diagnosis: Generalized intra-abdominal and pelvic swelling, mass and lump[ICD10: R19.07] Melba Goldman MD, [facility] CPT-4: 06553 11/24/2015 40339 EST. PATIENT, LEVEL III Diagnosis: Other migraine, intractable, without status migrainosus[ICD10: G43.819] Isabelle Goldman MD, [facility] CPT-4: 62295 08/27/2015 40671 EST. PATIENT, LEVEL III Diagnosis: Acute recurrent maxillary sinusitis[ICD10: J01.01] Diagnosis: Candidal stomatitis[ICD10: B37.0] Diagnosis: Acute laryngopharyngitis[ICD10: J06.0] Isabelle Goldman MD, [facility] CPT- 4: 68285 08/10/2015 09323 EST. PATIENT, LEVEL III Diagnosis: Superficial foreign body of left hand, initial encounter[ICD10: S60.552A] Melba Goldman MD, [facility] CPT-4: 04887 07/28/2015 ([id number]) 40008 EST. PATIENT, LEVEL III Diagnosis: Essential (primary) hypertension[ICD10: I10] Diagnosis: Tinea cruris[ICD10: B35.6] Diagnosis: Abnormal levels of other serum enzymes[ICD10: R74.8] Shahida Goldman MD, [facility] CPT-4: 13190 06/11/2015 ([id number]) 37708 EST. PATIENT, LEVEL IV Diagnosis: ESSENTIAL HYPERTENSION[ICD9: 401.9] Diagnosis: Hypothyroid[ICD9: 244.9] Diagnosis: ALLERGIC RHINITIS[ICD9: 477.9] Diagnosis: Anxiety[ICD9: 300.00] Diagnosis: Sleep apnea[ICD9: 780.57] Shahida Goldman MD, [facility] CPT-4: 93427 03/19/2015 ([id number]) 16063 EST. PATIENT, LEVEL III Diagnosis: ACUTE SINUSITIS[ICD9: 461.9] Celi Goldman MD, [facility] CPT-4: 15752 01/07/2015 ([id number]) 40945 EST. PATIENT, LEVEL III Diagnosis: Conjunctivitis[ICD9: 372.30] Shahida Goldman MD, [facility] CPT-4: 43130 09/23/2014 27592 EST. PATIENT, LEVEL II Diagnosis: Noninfected skin tear of leg[ICD9: 891.0] Shahida Goldman MD, [facility] CPT-4: 52229 08/05/2014 ([id number]) 04108 EST. PATIENT, LEVEL III Diagnosis: Chronic maxillary sinusitis[ICD9: 473.0] Shahida Goldman MD, [facility] CPT-4: 54031 06/23/2014 48856 EST. PATIENT, LEVEL II Diagnosis: Headache[ICD9: 784.0] Shahida Goldman MD, [facility] CPT-4: 53696 06/05/2014 ([id number]) 97303 EST. PATIENT, LEVEL III Diagnosis: Abrasion of right leg[ICD9: 916.0] Diagnosis: Headache[ICD9: 784.0] Diagnosis: ALLERGIC RHINITIS[ICD9: 477.9] Shahida Goldman MD, [facility] CPT-4: 58685 04/03/2014 65069 EST. PATIENT, LEVEL II Diagnosis: Tinea corporis[ICD9: 110.5] Diagnosis: Exposure to scabies[ICD9: V01.89] Shahida Goldman MD, [facility] CPT- 4: 40281 03/07/2014 ([id number]) 97505 EST. PATIENT, LEVEL III Diagnosis: ESSENTIAL HYPERTENSION[SNOMED: 97494228] Diagnosis: OSTEOARTH NOS-UNSPEC[ICD9: 715.90] Diagnosis: Lumbago[ICD9: 724.2] Diagnosis: Cervicalgia[ICD9: 723.1] Shahida Goldman MD, [facility] CPT-4: 97227 11/21/2013 ([id number]) 37049 EST. PATIENT, LEVEL III Diagnosis: DEPRESSIVE DISORDER NEC[ICD9: 311] Diagnosis: Paronychia[ICD9: 681.9] Melba Goldman MD, [facility] CPT-4: 94528 09/24/2013 ([id number]) 76944 EST. PATIENT, LEVEL III Diagnosis: Paronychia[ICD9: 681.9] Diagnosis: Cellulitis[ICD9: 682.9] Melba Goldman MD, [facility] CPT-4: 76625 09/19/2013 ([id number]) 84340 EST. PATIENT, LEVEL III Diagnosis: Conjunctivitis[ICD9: 372.30] Diagnosis: Thrush[ICD9: 112.0] Shahida Goldman MD, [facility] CPT-4: 55965 08/05/2013 ([id number]) 70869 EST. PATIENT, LEVEL III Diagnosis: ACUTE MAXILLARY SINUSITIS[ICD9: 461.0] Diagnosis: COUGH[ICD9: 786.2] Diagnosis: Insomnia[ICD9: 780.52] Diagnosis: ESOPHAGEAL REFLUX[ICD9: 530.81] Melba Goldamn MD, [facility] CPT-4: 72035 07/10/2013 ([id number]) Miscellaneous no charge Diagnosis: ESSENTIAL HYPERTENSION[SNOMED: 04854485] Melba Goldman MD [facility] CPT-4: 92519 05/13/2013 ([id number]) 83050 EST. PATIENT, LEVEL IV Diagnosis: ESSENTIAL HYPERTENSION[SNOMED: 82171051] Diagnosis: HYPOTHYROIDISM[ICD9: 244.9] Diagnosis: OSTEOARTH NOS-UNSPEC[ICD9: 715.90] Melba Goldman MD [facility] CPT- 4: 88705 05/07/2013 ([id number]) 70226 EST. PATIENT, LEVEL IV Diagnosis: Osteoarthritis[ICD9: 715.90] Diagnosis: Knee pain, bilateral[ICD9: 719.46] Diagnosis: Hip pain[ICD9: 719.45] Melba Goldman MD [facility] CPT-4: 38536 12/03/2012 ([id number]) 93493 EST. PATIENT, LEVEL III Diagnosis: Thrush[ICD9: 112.0] Melba Goldman MD [facility] CPT-4: 27177 09/24/2012 ([id number]) 68059 EST. PATIENT, LEVEL IV Diagnosis: ESSENTIAL HYPERTENSION[SNOMED: 55331954] Diagnosis: Thrush[ICD9: 112.0] Diagnosis: Sleep apnea[ICD9: 780.57] Melba Goldman MD [facility] CPT-4: 74148 09/10/2012 ([id number]) 64415 EST. PATIENT, LEVEL IV Diagnosis: Esophageal reflux[ICD9: 530.81] Diagnosis: Hypothyroid[ICD9: 244.9] Diagnosis: JOINT PAIN-MULT JOINTS[ICD9: 719.49] Diagnosis: ALLERGIC RHINITIS[ICD9: 477.9] Melba Goldman MD [facility] CPT-4: 19867 08/08/2012 ([id number]) 86253 EST. PATIENT, LEVEL IV Diagnosis: Urinary frequency[ICD9: 788.41] Diagnosis: EDEMA[ICD9: 782.3] Diagnosis: HYPOTHYROIDISM[ICD9: 244.9] Diagnosis: Fatigue[ICD9: 780.79] Melba Goldman MD [facility] CPT-4: 92749 02/15/2012 ([id number]) 16510 EST. PATIENT, LEVEL IV Diagnosis: Abdominal pain[ICD9: 789.00] Diagnosis: Fatigue[ICD9: 780.79] Diagnosis: Nausea[ICD9: 787.02] Melba Goldman MD, [facility] CPT-4: 50512 11/10/2011 73090 EST. PATIENT, LEVEL IV Diagnosis: ESSENTIAL HYPERTENSION[SNOMED: 94553215] Diagnosis: DIARRHEA[ICD9: 787.91] Diagnosis: DEPRESSIVE DISORDER NEC[ICD9: 311] Diagnosis: Irritable bowel disease[ICD9: 564.1] Melba Goldman MD, [facility] CPT- 4: 55514 08/01/2011 06794 EST. PATIENT, LEVEL III Diagnosis: ACUTE SINUSITIS[ICD9: 461.9] Diagnosis: Cough[ICD9: 786.2] Shahida Goldman MD, [facility] CPT-4: 77361 07/14/2011 13140 EST. PATIENT, LEVEL IV Diagnosis: VACCIN FOR INFLUENZA[ICD9: V04.81] Diagnosis: ESSENTIAL HYPERTENSION[SNOMED: 07120119] Diagnosis: GENERALIZED ANXIETY DISEASE[ICD9: 300.02] Diagnosis: SLEEP DISTURBANCES[ICD9: 780.50] Shahida Goldman MD, [facility] CPT- 4: 25168 05/23/2011 67882 EST. PATIENT, LEVEL III Diagnosis: ACUTE SINUSITIS[ICD9: 461.9] Diagnosis: ALLERGIC RHINITIS[ICD9: 477.9] Diagnosis: Cough[ICD9: 786.2] Shahida Goldman MD, [facility] CPT-4: 15833 05/03/2011 26012 EST. PATIENT, LEVEL IV Diagnosis: ESSENTIAL HYPERTENSION[SNOMED: 46475802] Diagnosis: DEPRESSIVE DISORDER NEC[ICD9: 311] Diagnosis: Fatigue[ICD9: 780.79] Shahida Goldman MD, [facility] CPT-4: 44009 04/25/2011 Plan of Care Planned Activity Notes Codes Status Date Visit Plan: sore, Cellulitis - The patient was instructed in appropriate wound care. The patient was instructed to use the antibiotic ointment as per RX. The patient is to call for any change in symptoms, increase in size of the lesion, increase in pain, worsening redness, warmth, discharge. 02/20/2019 App[facility]ment[phone] [place] (15 min) Moderate 02/20/2019 Patient Education: Patient [...] good probiotic. 01/29/2019 App[facility]ment: [phone] (15 min) Moderate 01/29/2019 Patient Education: Patient [...] acute concerns. 11/13/2018 Appointment: [facility] [phone] [phone] [place] (15 min) Moderate 11/13/2018 Patient Education: [...] call for acute concerns. Hyperlipidemia-check fasting labs Rxtckwzhtfajyb-glktcex-prbkb labs 10/30/2018 Visit Plan: Hypertension - uncontrolled [...] call for acute concerns. Hyperlipidemia-check fasting labs Bzduecpxncjkud-ybssapr-mipja labs 10/30/2018 Appointment: Shahida Manzo WPtel: [phone] [phone] (30 min) Complex 10/30/2018 Patient Education: Patient Medication Summary Completed 10/30/2018 Visit Plan: Conjunctivitis - rx for eye drops/lube sent electronically to the patient's pharmacy. The patient has been instructed to cleanse affected eye with warm washcloth, then place medication into affected eye four times daily. 10/08/2018 Appointment: Shahida Manzo WPtel: [phone] [phone] (30 min) Complex 10/08/2018 Patient Education: Patient Medication Summary Completed 10/08/2018 Appointment: Isabelle Orozco WPtel: [facility] (15 min) Moderate 07/30/2018 Visit Plan: Anxiety [...] concerns. 07/16/2018 Appointment: Isabelle Orozco WPtel: [phone] [phone] (15 min) Moderate 07/16/2018 Patient Education: [...] over-medication. 07/10/2018 Appointment: Shahida Manzo WPtel: [phone] [phone] (15 min) Moderate 07/10/2018 Patient Education: Patient Medication Summary Completed 07/10/2018 Patient Education: Back Pain Completed 07/10/2018 Visit Plan: Sinusitis - Pt has acute infection - pain in face, maxillary region, Pt informed to use decongestant, RX given to patient, sinus rinses also recommended. Call if symptoms do not show improvement. 05/28/2018 Appointment: Shahida Manzo WPtel: [phone] [phone] (30 min) Complex 05/28/2018 Patient Education: [...] acute concerns. 02/07/2018 Appointment: Isabelle Orozco WPt[facility]: [facility] (15 min) Moderate 02/07/2018 Patient Education: Patient [...] fatigue 01/19/2018 Appointment: Shahida Manzo WPtel: [phone] [phone] (15 min) Moderate 01/19/2018 Patient Education: Patient [...] surrogate. 11/23/2017 Appointment: Isabelle Orozco WPtel: [phone] [facility] [facility] - Annual Wellness Visit 11/23/2017 [...] show improvement. 09/12/2017 Appointment: Isabelle Orozco WPtel: [facility] [[email or web address]] (15 min) Moderate 09/12/2017 Patient Education: Patient [...] allergy spray. 07/25/2017 Appointment: Isabelle Orozco WPtel: [phone] [phone] (30 min) Complex 07/25/2017 Patient Education: Patient [...] are available 06/27/2017 Appointment: Shahida Manzo WPtel: [phone] [phone] (15 min) Moderate 06/27/2017 Patient Education: [...] not improving. 05/08/2017 Appointment: Shahida Manzo WPtel: [phone] [phone] (15 min) Moderate 05/08/2017 Patient Education: Patient Medication Summary Completed 05/08/2017 Patient Education: Obesity Completed 05/08/2017 Appointment: Injection 04/20/2017 Patient Education: Patient Medication Summary Completed 04/20/2017 Visit Plan: Sinusitis - Pt has acute infection - pain in face, maxillary region, Pt informed to use decongestant, RX given to patient, sinus rinses also recommended. Call if symptoms do not show improvement. 03/14/2017 Appointment: Shahida Manzo WPtel: [phone] [phone] [place] (15 min) Moderate 03/14/2017 Patient Education: Patient Medication Summary Completed 03/14/2017 Appointment: Shahida Manzo WPtel: [phone] [phone] (15 min) Moderate 02/21/2017 Visit Plan: [...] not improving. 02/20/2017 Appointment: [phone] [phone] (30 min) Complex 02/20/2017 Patient Education: Patient Medication Summary Completed 02/20/2017 Visit Plan: Abdominal pain - liquid diet x 2 days, call on to let me know it if is not better - will prescribe a medication called flagjose Depression - uncontrolled - Pt has been [...] on use 02/06/2017 Appointment: [phone] [facility] (15 min) Moderate 02/06/2017 Patient Education: Patient [...] this patient. 12/05/2016 Appointment: [phone] [facility] [facility] 12/05/2016 Patient Education: Patient Medication Summary Completed 12/05/2016 Visit Plan: Sinusitis - Pt has acute infection - pain in face, maxillary region, Pt informed to use decongestant, RX given to patient, sinus rinses also recommended. Call if symptoms do not show improvement. Dysuria- culture urine 11/28/2016 Appointment: Shahida Manzo [facility] [phone] [phone] (15 min) Moderate 11/28/2016 Patient Education: Patient [...] of control. 11/07/2016 Appointment: Isabel[facility] Orozco [facility]: [phone] [facility] [facility] - Annual Wellness Visit 11/07/2016 Patient Education: [...] allergy spray. 08/15/2016 Appointment: Isabel[facility] Orozco [facility] [phone] [phone] (15 min) Moderate 08/15/2016 Patient Education: Patient [...] pain use. 06/07/2016 Appointment: Shahida Manzo WPtel: [facility]5 [phone] (10 min) Simple 06/07/2016 Patient Education: [...] office today 03/14/2016 Appointment: Shahida Manzo WPtel: [phone] (15 min) Moderate 03/14/2016 Patient Education: Patient Medication Summary Completed 03/14/2016 Care Plan: COMPLETE CBC AUTOMATED LOINC : 68381-4 Pending 03/14/2016 Visit Plan: Cellulitis - The patient was instructed in appropriate wound care. The patient was instructed to use the antibiotic ointment as per RX. The patient is to call for any change in symptoms, increase in size of the lesion, increase in pain. 02/22/2016 Appointment: Isabelle Orozco WPtel: [facility] (15 min) Moderate 02/22/2016 Patient Education: Patient [...] pt to follow up with specialist at [facility] - she needs to pursue treatment. Anxietly - medications unchanged. colonoscopy with dr. dai 11/24/2015 Appointment: Melba Goldman WPtel: [facility] (30 min) [facility] 11/24/2015 Patient Education: Patient Medication Summary Completed 11/24/2015 Patient Education: Obesity Completed 11/24/2015 Patient Education: Hypertension Completed 11/24/2015 Patient Education: .Cervicalgia Neck Pain Completed 11/24/2015 Care Plan: Referral Order SNOMED-CT : [id number] Ordered 11/24/2015 Visit Plan: Acute Migraine - [...] to monitor 06/11/2015 Appointment: Shahida Manzo WPtel: [address] [place], [place] [phone] (15 min) Moderate 06/11/2015 Patient Education: Patient [...] OFFICE Sleep apnea-patient needs new CPAP-will contact [facility] Pt reports that she uses [...] OFFICE Sleep apnea-patient needs new CPAP-will contact [facility] Pt reports that she uses her [...] OFFICE Sleep apnea-patient needs new CPAP-will contact [facility] 03/19/2015 Appointment: (15 min) Moderate 03/19/2015 [...] Medication Summary Completed 01/07/2015 Patient Education: [facility] - Saving AutoInj - 18+ - Dynamic [...] areas dry Exposure to scabies-RX sent to [facility]. 03/07/2014 Appointment: Melba Goldman [facility]Ptel: [phone] [facility] [place] rash 03/07/2014 Patient Education: Patient [...] change in blood pressure readings at home. Vafkynw-whqrtpbdwbn-qmghytis duragesic patch-appt with Dr Ortiz for pain management 11/21/2013 Appointment: Shahida Manzo WPtel: [phone] Follow up 11/21/2013 Patient Education: Patient Medication Summary Completed 11/21/2013 Patient Education: Hypertension Completed 11/21/2013 Patient Education: .Cervicalgia Neck Pain Completed 11/21/2013 Appointment: Melba Goldman WPtel: [address] [place], [place] [phone] Other 11/19/2013 Appointment: Melba Goldman WPtel: [address] [place], [place] [phone] Follow up 11/06/2013 Appointment: Melba Goldman WPtel: [address] [place] [address] Lab Draw 10/15/2013 Patient Education: Patient Medication [...] AT BEDTIME 09/24/2013 Appointment: Shahida Manzo WPtel: [phone] Other 09/24/2013 Patient Education: Patient Medication Summary Completed 09/24/2013 Visit Plan: Paronychia/Cellulitis - continue with oral antibiotics as previously directed, return to clinic as previously directed, call for acute change in symptoms, worsening redness, warmth, discharge. 09/19/2013 Appointment: [facility] Goldman [facility] [phone] [facility] [facility] 09/19/2013 Patient Education: Patient Medication Summary Completed 09/19/2013 Visit Plan: Conjunctivitis - rx for eye drops/lube sent electronically to the patient's pharmacy. The patient has been instructed to cleanse affected eye with warm washcloth, then place medication into affected eye four times daily. Thrush-refill nystatin-call if symptoms do not resolve 08/05/2013 Appointment: Shahida Manzo [facility] [phone] [phone] Sick 08/05/2013 Patient Education: Patient Medication Summary [...] show improvement. 06/03/2013 Appointment: Melba Goldman WPtel: [phone] [facility] Follow up 06/03/2013 Patient Education: Patient Medication Summary Completed 06/03/2013 Patient Education: Hypertension Completed 06/03/2013 Appointment: Melba Goldman WPtel: [phone] [facility] Nurse Visit 05/13/2013 Patient Education: Patient Medication [...] of control. 05/07/2013 Appointment: [facility] [phone] [facility] Follow up 05/07/2013 Patient Education: Patient Medication Summary Completed 05/07/2013 Patient Education: Hypertension Completed 05/07/2013 Patient Education: Patient Medication Summary Completed 04/30/2013 Patient Education: Hypertension Completed 04/30/2013 Visit Plan: Arthritis- occasionally uncontrolled symptoms- recommend pt to take antiinflammatory as directed for pain control. Use tylenol for break through pain symptoms. 12/03/2012 Appointment: Melba Goldman WPtel: [phone] [facility] Follow up 12/03/2012 Patient Education: Patient [...] not resolve 09/24/2012 Appointment: Shahida Manzo WPtel: [phone] [phone] [place] [address] 09/24/2012 Patient Education: Patient Medication Summary Completed [...] lindsay. Thrush- treating with diflucan 09/10/2012 Appointment: Mleba Goldman WPtel: [facility] Follow up 09/10/2012 Patient Education: Patient [...] pain symptoms. 08/08/2012 Appointment: Shahida Manzo WPtel: [phone] Follow up 08/08/2012 Patient Education: Patient Medication Summary Completed 08/08/2012 Patient Education: Patient Medication Summary Completed 08/07/2012 Patient Education: Hypertension Completed 08/07/2012 Appointment: Melba Goldman WPtel: [facility] Lab Draw 02/16/2012 Patient Education: Patient Medication [...] Needs labs. 02/15/2012 Appointment: Melba Goldman WPtel: [facility] Other 02/15/2012 Patient Education: Patient Medication Summary Completed 02/15/2012 Visit Plan: Abdominal pain - ultrasound tomorrow AM nothing to eat before the ultrasound from 11pm tonight bland diet. Nausea - worse with fatty foods, recommended low fat/bland diet, call if symptoms worsening. 11/10/2011 Appointment: Melba Goldman WPtel: [address] [place], [place] [phone] Other 11/10/2011 Patient Education: Patient Medication Summary [...] the stools. 08/01/2011 Appointment: Melba Goldman WPtel: [address] [place], [place] [phone] Other 08/01/2011 Patient Education: Patient Medication Summary Completed 08/01/2011 Patient Education: High Blood Pressure: Essential Hypertension Completed 08/01/2011 Visit Plan: Sinusitis - Pt has acute infection - pain in face, maxillary region, Pt informed to use decongestant, RX given to patient, sinus rinses also recommended. Call if symptoms do not show improvement. Cough- kishore zurita 07/14/2011 Appointment: Shahida Manzo WPtel: [phone] Other 07/14/2011 Patient Education: Patient Medication [...] the office. 05/23/2011 Appointment: Shahida Manzo WPtel: [facility] [place] [address] [place] Other 05/23/2011 Patient Education: Patient Medication Summary [...] cough med 05/03/2011 Appointment: Shahida Manzo WPtel: [phone] [place] [phone] [place] Other 05/03/2011 Patient Education: Patient Medication [...] her symptoms. 04/25/2011 Appointment: Shahida Manzo [facility]Ptel: [phone] [facility] 04/25/2011 Patient Education: Patient Medication Summary [...] OFFICE Sleep apnea-patient needs new CPAP-will contact [facility] Pt reports that she uses [...] OFFICE Sleep apnea-patient needs new CPAP-will contact [facility] Pt reports that she uses her [...] OFFICE Sleep apnea-patient needs new CPAP-will contact [facility] LOSARTAN 50MG DAILY MONITOR BLOOD [...] call for acute concerns. Hyperlipidemia-check fasting labs Ugkmafszuwxocb-nqptmyp-ugowj labs LOSARTAN 50MG DAILY MONITOR BLOOD PRESSURE [...] call for acute concerns. Hyperlipidemia-check fasting labs Uhacvdojlpvxxn-uqazepy-vgtmf labs . Sinusitis - Pt has acute [...] daily x 1 week then 1/2 pill m/w/ and 1 full pill tu/th/sat/sun - do this x 1 week then [...] daily x 1 week then 1/2 pill m/w/ and 1 full pill tu//sat/sun - do this x 1 week then [...] areas dry Exposure to scabies-RX sent to [facility]. rocephin/kenalog . Sinusitis - Pt has [...] change in blood pressure readings at home. Eltrtqa-pqrlxrstytk-myyxphsr duragesic patch-appt with Dr Ortiz for pain [...] in diet to bulk up the stools. Increase Synthroid to 100mcg po daily. Repeat [...]
[2019-03-08] MEDS ORDERED: ASPI-999 PO (10:00)
--- OUTSIDE RECORDS SUMMARY | 2019-03-08 10:09 | XMS REPORT | CCD ---
Author Author [facility] Address [address] [place] [address] Phone Care Team Providers Care Plant Pathology Teacher Name Role Phone PP Unavailable CCM Unavailable Summary Purpose Interface Exchange Insurance Providers Payer name Policy type / Coverage type Covered democrat ID Effective Begin Date Effective End Date [employer] Medicare Part B [id number] Unknown Family history Son Diagnosis Age At Onset Crohn's disease Unknown Brother Diagnosis Age At Onset Cardiovascular disease Unknown Mother Diagnosis Age At Onset Hypertension Unknown Father Diagnosis Age At Onset Cardiovascular disease Unknown Social History Social History Element Codes Description Effective Dates Marital status Unknown 04/22/2011 Number of children Unknown 3 1 son -Crohns 04/22/[address]: 905137031 Nonsmoker 04/22/2011 Allergies, Adverse Reactions, Alerts Substance [...] Instructions mupirocin 2 % topical ointment RxNorm: 540661 1 Application TOP BID 02/20/2019 No Stop Date Active doxycycline hyclate 100 mg capsule RxNorm: 0537578 1 Capsule(s) PO BID 02/20/2019 03/01/2019 Active ceftriaxone 1 gram solution for injection RxNorm: 5906298 Inj 02/20/2019 02/20/2019 Inactive piroxicam 20 mg capsule RxNorm: 551935 TAKE ONE CAPSULE BY MOUTH DAILY 02/01/2019 05/31/2019 Active hydrochlorothiazide 25 mg tablet RxNorm: 584930 Tablet(s) TAKE ONE TABLET BY MOUTH DAILY 01/29/2019 10/25/2019 Active hydrocodone 10 mg-acetaminophen 325 mg tablet RxNorm: 270907 Tablet(s) PO TAKE ONE TO TWO TABLETS BY MOUTH EVERY 6 HOURS NEEDED FOR PAIN 01/17/2019 01/31/2019 Inactive trazodone 50 mg tablet RxNorm: 664786 TAKE ONE AND ONE-HALF (1 1/2) TABLETS BY MOUTH AT BEDTIME. MAY INCREASE TO 2 TABLETS AT BEDTIME NEEDED 12/13/2018 04/01/2019 Active losartan 100 mg tablet RxNorm: 363304 1 Tablet(s) PO daily 11/13/2018 05/11/2019 Active hydrocodone 10 mg-acetaminophen 325 mg tablet RxNorm: 166241 Tablet(s) PO TAKE ONE TO TWO TABLETS BY MOUTH EVERY 6 HOURS NEEDED FOR PAIN 11/13/2018 11/27/2018 Inactive Synthroid 112 mcg tablet RxNorm: 187571 1 Tablet(s) PO daily 11/01/2018 04/29/2019 Active Brand name only! Dosage change! Synthroid 112 mcg tablet RxNorm: 941790 1 Tablet(s) PO daily 11/01/2018 10/31/2018 Inactive Brand name only! Dosage change! losartan 50 mg tablet RxNorm: 431360 1 Tablet(s) PO daily 10/30/2018 11/12/2018 Inactive Tamiflu 75 mg capsule RxNorm: 804033 1 Capsule(s) PO daily 10/30/2018 11/08/2018 Inactive Synthroid 100 mcg tablet RxNorm: 393394 1 Tablet(s) PO daily 10/30/2018 10/31/2018 Inactive Brand name only! Lexapro 20 mg tablet RxNorm: 912316 TAKE ONE AND ONE-HALF TABLET BY MOUTH DAILY 10/23/2018 10/17/2019 Active alprazolam 0.25 mg tablet RxNorm: 290162 1 Tablet(s) PO TID as needed 10/10/2018 01/07/2019 Inactive polymyxin B sulfate 10,000 unit-trimethoprim 1 mg/mL eye drops RxNorm: 363954 2 Drop(s) ophthalmic (eye) QID 10/08/2018 10/14/2018 Inactive hydrocodone 10 mg-acetaminophen 325 mg tablet RxNorm: 721870 Tablet(s) PO TAKE ONE TO TWO TABLETS BY MOUTH EVERY 6 HOURS NEEDED FOR PAIN 09/11/2018 09/25/2018 Inactive piroxicam 20 mg capsule RxNorm: 872175 TAKE ONE CAPSULE BY MOUTH DAILY 08/09/2018 01/05/2019 Inactive trazodone 50 mg tablet RxNorm: 143202 TAKE ONE AND ONE-HALF (1 1/2) TABLET BY MOUTH AT BEDTIME. MAY INCREASE TO 2 TABLETS AT BEDTIME NEEDED 08/02/2018 11/19/2018 Inactive Nexium 40 mg capsule,delayed release RxNorm: 576903 TAKE ONE CAPSULE BY MOUTH TWICE A DAY 07/23/2018 11/19/2018 Inactive Bystolic 5 mg tablet RxNorm: 206878 1 Tablet(s) PO daily to take with 10 mg daily to equal 15mg daily 07/17/2018 10/29/2018 Inactive alprazolam 0.25 mg tablet RxNorm: 105748 1 Tablet(s) PO TID as needed 07/16/2018 10/29/2018 Inactive hydrocodone 10 mg-acetaminophen 325 mg tablet RxNorm: 411723 Tablet(s) PO TAKE ONE TO TWO TABLETS BY MOUTH EVERY 6 HOURS NEEDED FOR PAIN 07/10/2018 07/24/2018 Inactive prednisone 20 mg tablet RxNorm: 540400 1 Tablet(s) PO BID 07/10/2018 07/14/2018 Inactive Phenergan with Codeine Syrup RxNorm: 5-10 Milliliter(s) PO Q6 PRN 06/28/2018 01/28/2019 Inactive prednisone 20 mg tablet RxNorm: 032956 2 Tablet(s) PO daily 05/31/2018 06/04/2018 Inactive prednisone 20 mg tablet RxNorm: 106836 2 Tablet(s) PO daily 05/31/2018 05/30/2018 Inactive ceftriaxone 500 mg solution for injection RxNorm: 4768819 Inj 05/28/2018 05/28/2018 Inactive doxycycline hyclate 100 mg tablet RxNorm: 1770617 1 Tablet(s) PO BID 05/28/2018 06/06/2018 Inactive Kenalog 40 mg/mL suspension for injection RxNorm: 2063185 Milliliter(s) Inj 05/28/2018 05/28/2018 Inactive hydrocodone 10 mg-acetaminophen 325 mg tablet RxNorm: 062845 Tablet(s) PO TAKE ONE TO TWO TABLETS BY MOUTH EVERY 6 HOURS NEEDED FOR PAIN 05/09/2018 05/23/2018 Inactive alprazolam 0.25 mg tablet RxNorm: 992996 1 Tablet(s) PO daily as needed 04/25/2018 07/15/2018 Inactive Bystolic 10 mg tablet RxNorm: 759317 TAKE ONE TABLET BY MOUTH DAILY 04/16/2018 09/12/2018 Inactive hydrocodone 10 mg-acetaminophen 325 mg tablet RxNorm: 376565 Tablet(s) PO TAKE ONE TO TWO TABLETS BY MOUTH EVERY 6 HOURS NEEDED FOR PAIN 03/06/2018 03/20/2018 Inactive trazodone 50 mg tablet RxNorm: 555069 TAKE ONE AND ONE-HALF (1 1/2) TABLET BY MOUTH AT BEDTIME. MAY INCREASE TO 2 TABLETS AT BEDTIME NEEDED 02/23/2018 06/12/2018 Inactive mupirocin 2 % topical ointment RxNorm: 004573 1 TOP BID 02/09/2018 05/27/2018 Inactive Zofran 4 mg tablet RxNorm: 606424 1 Tablet(s) PO TID as needed 02/08/2018 No Stop Date Active Keflex 500 mg capsule RxNorm: 759411 1 Capsule(s) PO TID 02/07/2018 02/13/2018 Inactive alprazolam 0.25 mg tablet RxNorm: 028228 1 Tablet(s) PO daily as needed 01/24/2018 07/09/2018 Inactive hydrocodone 10 mg-acetaminophen 325 mg tablet RxNorm: 185932 Tablet(s) PO TAKE ONE TO TWO TABLETS BY MOUTH EVERY 6 HOURS NEEDED FOR PAIN 01/19/2018 02/02/2018 Inactive hydrochlorothiazide 25 mg tablet RxNorm: 490490 Tablet(s) TAKE ONE TABLET BY MOUTH DAILY 01/19/2018 01/19/2018 Inactive Kenalog 40 mg/mL suspension for injection RxNorm: 8091528 1 Milliliter(s) Inj 01/19/2018 01/19/2018 Inactive piroxicam 20 mg capsule RxNorm: 196472 1 Capsule(s) PO daily 01/19/2018 07/17/2018 Inactive D/C ORDER FOR HCTZ ceftriaxone 500 mg solution for injection RxNorm: 9724362 500 Milligram(s) Inj 01/19/2018 01/19/2018 Inactive Nexium 40 mg capsule,delayed release RxNorm: 488395 TAKE ONE CAPSULE BY MOUTH TWICE A DAY 01/18/2018 04/17/2018 Inactive Nexium 40 mg capsule,delayed release RxNorm: 038426 TAKE ONE CAPSULE BY MOUTH TWICE A DAY 01/15/2018 04/14/2018 Inactive ciprofloxacin 0.3 % eye drops RxNorm: 704451 2 Drop(s) ophthalmic (eye) Q2H while awake x 2 days, then Q4H x 5 days 11/23/2017 05/27/2018 Inactive Keflex 500 mg capsule RxNorm: 513970 1 Capsule(s) PO TID 11/23/2017 11/29/2017 Inactive hydrocodone 10 mg-acetaminophen 325 mg tablet RxNorm: 588801 Tablet(s) PO TAKE ONE TO TWO TABLETS BY MOUTH EVERY 6 HOURS NEEDED FOR PAIN 10/30/2017 11/13/2017 Inactive Augmentin 500 mg-125 mg tablet RxNorm: 564100 1 Tablet(s) PO TID 10/27/2017 11/05/2017 Inactive alprazolam 0.25 mg tablet RxNorm: 719360 1 Tablet(s) PO daily as needed 10/26/2017 04/24/2018 Inactive trazodone 50 mg tablet RxNorm: 261258 TAKE ONE AND ONE-HALF (1 1/2) TABLET BY MOUTH AT BEDTIME. MAY INCREASE TO 2 TABLETS AT BEDTIME NEEDED 09/25/2017 02/03/2018 Inactive Lexapro 20 mg tablet RxNorm: 959248 TAKE ONE AND ONE-HALF TABLET BY MOUTH DAILY 09/15/2017 09/09/2018 Inactive Flagyl 500 mg tablet RxNorm: 015537 1 Tablet(s) PO TID 09/12/2017 09/21/2017 Inactive promethazine 25 mg tablet RxNorm: 954431 1 Tablet(s) PO TID as needed nausea and vomitting THIS WILL MAKE YOU SLEEPY 09/12/2017 11/08/2017 Inactive Keflex 500 mg capsule RxNorm: 597487 1 Capsule(s) PO QID 08/25/2017 08/31/2017 Inactive [SAVINGS FOR UNINSURED PATIENTS -- [id number], PCN: [id number], Group: [id number], ID# [id number], Process claim through [employer], for questions: . THIS IS NOT INSURANCE.] alprazolam 0.25 mg tablet RxNorm: 770765 1 Tablet(s) PO daily as needed 07/31/2017 04/24/2018 Inactive prednisone 20 mg tablet RxNorm: 120210 2 Tablet(s) PO daily 07/25/2017 07/29/2017 Inactive Augmentin 500 mg-125 mg tablet RxNorm: 500180 1 Tablet(s) PO TID 07/25/2017 08/03/2017 Inactive trazodone 50 mg tablet RxNorm: 651355 TAKE ONE AND ONE-HALF (1 1/2) TABLET BY MOUTH AT BEDTIME. MAY INCREASE TO 2 TABLETS AT BEDTIME NEEDED 06/30/2017 09/03/2017 Inactive Bystolic 10 mg tablet RxNorm: 489648 TAKE ONE TABLET BY MOUTH DAILY 06/30/2017 2017 Inactive hydrochlorothiazide 25 mg tablet RxNorm: 357814 TAKE ONE TABLET BY MOUTH DAILY 06/30/2017 01/18/2018 Inactive Flagyl 500 mg tablet RxNorm: 269751 1 Tablet(s) PO TID 06/27/2017 07/03/2017 Inactive Phenergan with Codeine Syrup RxNorm: 5-10 Milliliter(s) PO Q6 PRN 06/27/2017 11/15/2017 Inactive Levaquin 500 mg tablet RxNorm: 916969 1 Tablet(s) PO daily 06/27/2017 07/03/2017 Inactive Kenalog 40 mg/mL suspension for injection RxNorm: 9242814 1 Milliliter(s) Inj 06/27/2017 06/27/2017 Inactive Nexium 40 mg capsule,delayed release RxNorm: 992594 1 Capsule(s) PO BID TAKE ONE CAPSULE BY MOUTH BID 05/22/2017 09/18/2017 Inactive Nexium 40 mg capsule,delayed release RxNorm: 024517 1 Capsule(s) PO BID TAKE ONE CAPSULE BY MOUTH BID 05/22/2017 05/21/2017 Inactive hydrocodone 10 mg-acetaminophen 325 mg tablet RxNorm: 158894 Tablet(s) PO TAKE ONE TO TWO TABLETS BY MOUTH EVERY 6 HOURS NEEDED FOR PAIN 05/17/2017 06/15/2017 Inactive Nexium 40 mg capsule,delayed release RxNorm: 806274 Capsule(s) TAKE ONE CAPSULE BY MOUTH BID 05/17/2017 05/21/2017 Inactive alprazolam 0.25 mg tablet RxNorm: 205892 1 Tablet(s) PO daily as needed 05/03/2017 07/01/2017 Inactive Levaquin 500 mg tablet RxNorm: 451036 1 Tablet(s) PO daily 04/20/2017 04/26/2017 Inactive clotrimazole 1 % topical cream RxNorm: 995140 1 Application TOP BID 04/20/2017 11/07/2017 Inactive Kenalog 40 mg/mL suspension for injection RxNorm: 4682041 Milliliter(s) Inj 04/20/2017 04/20/2017 Inactive nystatin 100,000 unit/gram topical powder RxNorm: 147791 1 Gram(s) APPLY TOPICALLY TWO TIMES A DAY 04/10/2017 07/08/2017 Inactive trazodone 50 mg tablet RxNorm: 943144 TAKE ONE AND ONE-HALF (1 1/2) TABLET BY MOUTH AT BEDTIME. MAY INCREASE TO 2 TABLETS AT BEDTIME NEEDED 03/28/2017 06/23/2017 Inactive Augmentin 875 mg-125 mg tablet RxNorm: 228652 1 Tablet(s) PO BID 03/14/2017 03/20/2017 Inactive Kenalog 40 mg/mL suspension for injection RxNorm: 2882251 1 Milliliter(s) Inj 03/14/2017 03/14/2017 Inactive Lexapro 20 mg tablet RxNorm: 449451 1.5 Tablet(s) PO daily 03/08/2017 03/07/2017 Inactive Lexapro 20 mg tablet RxNorm: 449899 1.5 Tablet(s) PO daily 03/08/2017 07/05/2017 Inactive alprazolam 0.25 mg tablet RxNorm: 721447 1 Tablet(s) PO daily as needed 02/23/2017 04/23/2017 Inactive (Response to an electronic controlled substance refill request - RxReferenceNumber: [id number]) Flagyl 500 mg tablet RxNorm: 757407 1 Tablet(s) PO TID 02/20/2017 03/01/2017 Inactive promethazine 25 mg tablet RxNorm: 298644 1 Tablet(s) PO TID as needed nausea 02/20/2017 03/01/2017 Inactive Cipro 500 mg tablet RxNorm: 390258 1 Tablet(s) PO BID 02/20/2017 03/01/2017 Inactive Flagyl 500 mg tablet RxNorm: 706129 1 Tablet(s) PO TID 02/09/2017 02/15/2017 Inactive Trintellix 10 mg tablet RxNorm: 1726267 1 Tablet(s) PO QAM 02/06/2017 03/07/2017 Inactive Efudex 5 % topical cream RxNorm: 653519 1 Application TOP BID use on skin spot on nose 02/06/2017 02/15/2017 Inactive Bystolic 10 mg tablet RxNorm: 484084 TAKE ONE TABLET BY MOUTH DAILY 02/03/2017 06/02/2017 Inactive Imitrex 50 mg tablet RxNorm: 930280 TAKE ONE TABLET BY MOUTH EVERY 8 HOURS NEEDED MAY REPEAT IN 1 HOUR OF INITIAL DOSE. DISCONTINUE FIORICET 12/22/2016 02/19/2017 Inactive Nexium 40 mg capsule,delayed release RxNorm: 252720 TAKE ONE CAPSULE BY MOUTH EVERY DAY 12/21/2016 05/16/2017 Inactive Lexapro 20 mg tablet RxNorm: 899337 Tablet(s) TAKE ONE TABLET BY MOUTH DAILY 12/05/2016 02/05/2017 Inactive Augmentin 875 mg-125 mg tablet RxNorm: 218216 1 Tablet(s) PO BID 11/28/2016 12/04/2016 Inactive ceftriaxone 500 mg solution for injection RxNorm: 7322450 1 Milliliter(s) Inj 11/28/2016 11/28/2016 Inactive hydrocodone 10 mg-acetaminophen 325 mg tablet RxNorm: 692257 Tablet(s) PO TAKE ONE TO TWO TABLETS BY MOUTH EVERY 6 HOURS NEEDED FOR PAIN 11/28/2016 05/16/2017 Inactive (Appended: Controlled substance eRx refill - RxReferenceNumber: [id number]) prednisone 20 mg tablet RxNorm: 072194 2 Tablet(s) PO daily 11/28/2016 12/02/2016 Inactive trazodone 50 mg tablet RxNorm: 748033 Tablet(s) TAKE 1 AND 1/2 TABLETS EVERY NIGHT AT BEDTIME , MAY INCREASE TO 2 TABLETS AT BEDTIME NEEDED 11/21/2016 11/20/2016 Inactive Synthroid 100 mcg tablet RxNorm: 621806 1 Tablet(s) PO daily 11/21/2016 05/19/2017 Inactive Brand name only! trazodone 50 mg tablet RxNorm: 692717 TAKE 1 AND 1/2 TABLETS EVERY NIGHT AT BEDTIME , MAY INCREASE TO 2 TABLETS AT BEDTIME NEEDED 11/21/2016 08/01/2018 Inactive Synthroid 100 mcg tablet RxNorm: 905952 1 Tablet(s) PO daily TAKE ONE TABLET BY MOUTH DAILY 11/08/2016 11/20/2016 Inactive ceftriaxone 500 mg solution for injection RxNorm: 0831185 Inj 11/07/2016 11/07/2016 Inactive Kenalog 40 mg/mL suspension for injection RxNorm: 5107879 Milliliter(s) Inj 11/07/2016 11/07/2016 Inactive Xanax 0.25 mg tablet RxNorm: 224512 1 Tablet(s) PO daily as needed 10/31/2016 05/02/2017 Inactive alprazolam 0.25 mg tablet RxNorm: 346301 1 Tablet(s) PO daily as needed 10/21/2016 12/18/2016 Inactive (Response to an electronic controlled substance refill request - RxReferenceNumber: [id number]) hydrochlorothiazide 25 mg tablet RxNorm: 739109 TAKE ONE TABLET BY MOUTH DAILY 10/11/2016 04/08/2017 Inactive Xanax 0.25 mg tablet RxNorm: 782838 1 Tablet(s) PO daily as needed 08/23/2016 10/19/2016 Inactive Flonase Allergy Relief 50 mcg/actuation nasal spray,suspension RxNorm: 4858948 1 [place] NASAL daily 08/15/2016 No Stop Date Active amoxicillin 500 mg capsule RxNorm: 714764 1 Capsule(s) PO TID 08/15/2016 08/24/2016 Inactive Bystolic 10 mg tablet RxNorm: 661788 TAKE ONE TABLET BY MOUTH DAILY 08/01/2016 12/28/2016 Inactive trazodone 50 mg tablet RxNorm: 525722 TAKE 1 AND 1/2 TABLETS EVERY NIGHT AT BEDTIME , MAY INCREASE TO 2 TABLETS AT BEDTIME NEEDED 07/25/2016 11/11/2016 Inactive alprazolam 0.25 mg tablet RxNorm: 295808 1 Tablet(s) PO daily as needed 07/25/2016 08/22/2016 Inactive (Response to an electronic controlled substance refill request - RxReferenceNumber: [id number]) Imitrex 50 mg tablet RxNorm: 860705 1 Tablet(s) PO Q8 as needed may repeat x1 dose in 1 hour of inital dose. 07/13/2016 No Stop Date Active Lexapro 20 mg tablet RxNorm: 981642 TAKE 1/2 TABLET BY MOUTH DAILY FOR 10 DAYS, THEN TAKE ONE TABLET BY MOUTH DAILY 06/27/2016 11/23/2016 Inactive Synthroid 100 mcg tablet RxNorm: 706705 TAKE ONE TABLET BY MOUTH DAILY 06/20/2016 11/07/2016 Inactive Augmentin 500 mg-125 mg tablet RxNorm: 049344 1 Tablet(s) PO TID 06/07/2016 06/13/2016 Inactive hydrocodone 10 mg-acetaminophen 325 mg tablet RxNorm: 368244 Tablet(s) PO TAKE ONE TO TWO TABLETS BY MOUTH EVERY 6 HOURS NEEDED FOR PAIN 06/07/2016 11/27/2016 Inactive (Appended: Controlled substance eRx refill - RxReferenceNumber: [id number]) hydrochlorothiazide 25 mg tablet RxNorm: 420472 TAKE ONE TABLET BY MOUTH DAILY 03/14/2016 09/09/2016 Inactive Edarbi 40 mg tablet RxNorm: 7640215 1 Tablet(s) PO daily 03/14/2016 06/06/2016 Inactive trazodone 50 mg tablet RxNorm: 941329 Tablet(s) TAKE 1 AND 1/2 TABLET AT BEDTIME. MAY INCREASE TO 2 TABLETS IF NECESSARY 02/25/2016 07/05/2016 Inactive Imitrex 50 mg tablet RxNorm: 402489 1 Tablet(s) PO Q8 as needed may repeat x1 dose in 1 hour of inital dose. 02/25/2016 07/12/2016 Inactive dc fioricet Xanax 0.25 mg tablet RxNorm: 376626 1 Tablet(s) PO daily as needed 02/24/2016 07/21/2016 Inactive mupirocin 2 % topical ointment RxNorm: 908103 1 TOP BID 02/22/2016 11/08/2017 Inactive Bactrim DS 800 mg-160 mg tablet RxNorm: 828919 1 Tablet(s) PO BID 02/22/2016 03/02/2016 Inactive Fioricet 50 mg-325 mg-40 mg tablet RxNorm: 000427 Tablet(s) TAKE ONE TABLET BY MOUTH EVERY 4 HOURS NEEDED FOR headache 02/12/2016 02/24/2016 Inactive (Response to an electronic controlled substance refill request - RxReferenceNumber: [id number]) Fioricet 50 mg-325 mg-40 mg tablet RxNorm: 899423 Tablet(s) TAKE ONE TABLET BY MOUTH EVERY 4 HOURS NEEDED FOR headache 02/12/2016 02/11/2016 Inactive (Response to an electronic controlled substance refill request - RxReferenceNumber: [id number]) Nexium 40 mg capsule,delayed release RxNorm: 862527 TAKE ONE CAPSULE BY MOUTH EVERY DAY 02/01/2016 10/27/2016 Inactive Bystolic 10 mg tablet RxNorm: 711547 Tablet(s) TAKE ONE TABLET BY MOUTH DAILY 01/06/2016 07/03/2016 Inactive Xanax 0.25 mg tablet RxNorm: 820184 1 Tablet(s) PO daily as needed 12/28/2015 02/23/2016 Inactive Levaquin 500 mg tablet RxNorm: 130922 1 Tablet(s) PO daily take a probiotic daily 12/14/2015 02/11/2016 Inactive Levaquin 500 mg tablet RxNorm: 016111 1 Tablet(s) PO daily take a probiotic daily 12/14/2015 12/13/2015 Inactive prednisone 20 mg tablet RxNorm: 750023 1 Tablet(s) PO BID 12/07/2015 12/13/2015 Inactive Augmentin 875 mg-125 mg tablet RxNorm: 630538 1 Tablet(s) PO BID 12/07/2015 12/13/2015 Inactive ceftriaxone 500 mg solution for injection RxNorm: 5834641 Inj 12/07/2015 12/07/2015 Inactive Phenergan with Codeine Syrup RxNorm: 5-10 Milliliter(s) PO Q6 PRN 12/07/2015 06/26/2017 Inactive alprazolam 0.25 mg tablet RxNorm: 173921 1 Tablet(s) PO daily as needed 11/27/2015 12/25/2015 Inactive (Response to an electronic controlled substance refill request - RxReferenceNumber: [id number]) trazodone 50 mg tablet RxNorm: 669168 TAKE 1 AND 1/2 TABLET AT BEDTIME FOR 2 WEEKS, MAY INCREASE TO 2 TABLETS IF NECESSARY AFTER THAT 11/26/2015 02/24/2016 Inactive ceftriaxone 500 mg solution for injection RxNorm: 3738556 Milliliter(s) Inj 11/24/2015 11/24/2015 Inactive prednisone 10 mg tablet RxNorm: 293257 3 Tablet(s) PO daily 11/24/2015 11/28/2015 Inactive cefdinir 300 mg capsule RxNorm: 732589 1 Capsule(s) PO BID 11/24/2015 11/30/2015 Inactive Kenalog 40 mg/mL suspension for injection RxNorm: 2520648 1 Milliliter(s) Inj 11/24/2015 11/24/2015 Inactive Lexapro 20 mg tablet RxNorm: 498785 TAKE 1/2 TABLET BY MOUTH DAILY FOR 10 DAYS, THEN TAKE ONE TABLET BY MOUTH DAILY 11/23/2015 05/20/2016 Inactive Lipitor 10 mg tablet RxNorm: 442145 Tablet(s) TAKE ONE TABLET BY MOUTH EVERY DAY 10/26/2015 11/06/2016 Inactive Norvasc 10 mg tablet RxNorm: 184250 Tablet(s) PO TAKE ONE TABLET BY MOUTH EVERY DAY 10/26/2015 01/18/2018 Inactive hydrochlorothiazide 25 mg tablet RxNorm: 939273 TAKE ONE TABLET BY MOUTH DAILY 10/20/2015 01/17/2016 Inactive promethazine 25 mg/mL injection solution RxNorm: 817290 Milliliter(s) Inj 08/27/2015 08/27/2015 Inactive ketorolac 60 mg/2 mL intramuscular solution RxNorm: 811061 Milliliter(s) IM 08/27/2015 08/27/2015 Inactive alprazolam 0.25 mg tablet RxNorm: 687438 1 Tablet(s) PO daily as needed 08/27/2015 10/25/2017 Inactive (Response to an electronic controlled substance refill request - RxReferenceNumber: [id number]) Lexapro 20 mg tablet RxNorm: 168760 TAKE 1/2 TABLET BY MOUTH DAILY FOR 10 DAYS, THEN TAKE ONE TABLET BY MOUTH DAILY 08/13/2015 11/10/2015 Inactive Flonase 50 mcg/actuation nasal spray,suspension RxNorm: 314850 PLACE 1 SPRAY IN EACH NOSTRIL DAILY 08/13/2015 02/08/2016 Inactive Augmentin 500 mg-125 mg tablet RxNorm: 989426 1 Tablet(s) PO TID 08/10/2015 08/16/2015 Inactive Kenalog 40 mg/mL suspension for injection RxNorm: 4890900 Milliliter(s) Inj 08/10/2015 08/10/2015 Inactive ceftriaxone 500 mg solution for injection RxNorm: 1166726 Inj 08/10/2015 08/10/2015 Inactive nystatin 100,000 unit/mL oral suspension RxNorm: 707149 4 Milliliter(s) PO QID 08/10/2015 08/16/2015 Inactive trazodone 50 mg tablet RxNorm: 287765 TAKE 1 AND 1/2 TABLET AT BEDTIME FOR 2 WEEKS, MAY INCREASE TO 2 TABLETS IF NECESSARY AFTER THAT 07/31/2015 11/25/2015 Inactive ceftriaxone 500 mg solution for injection RxNorm: 4831384 1 Milliliter(s) Inj 07/28/2015 07/28/2015 Inactive Bactrim DS 800 mg-160 mg tablet RxNorm: 942963 1 Tablet(s) PO BID 07/28/2015 08/06/2015 Inactive Bactroban 2 % topical ointment RxNorm: 680117 1 Application TOP BID 07/28/2015 08/06/2015 Inactive Diflucan 150 mg tablet RxNorm: 236748 1 Tablet(s) PO daily 06/11/2015 06/17/2015 Inactive clotrimazole 1 % topical cream RxNorm: 965136 1 Application TOP BID 06/11/2015 07/10/2015 Inactive Bystolic 10 mg tablet RxNorm: 184042 TAKE ONE TABLET BY MOUTH DAILY 06/08/2015 12/04/2015 Inactive alprazolam 0.25 mg tablet RxNorm: 304541 1 Tablet(s) PO daily as needed 06/01/2015 08/25/2015 Inactive (Response to an electronic controlled substance refill request - RxReferenceNumber: [id number]) Fioricet 50 mg-325 mg-40 mg tablet RxNorm: 934240 Tablet(s) TAKE ONE TABLET BY MOUTH EVERY 4 HOURS NEEDED FOR headache 05/28/2015 06/08/2015 Inactive (Response to an electronic controlled substance refill request - RxReferenceNumber: [id number]) trazodone 50 mg tablet RxNorm: 755468 TAKE 1 AND 1/2 TABLET AT BEDTIME FOR 2 WEEKS, MAY INCREASE TO 2 TABLETS IF NECESSARY AFTER THAT 05/25/2015 08/22/2015 Inactive trazodone 50 mg tablet RxNorm: 243744 TAKE 1 AND 1/2 TABLET AT BEDTIME FOR 2 WEEKS, MAY INCREASE TO 2 TABLETS IF NECESSARY AFTER THAT 05/25/2015 05/24/2015 Inactive Synthroid 100 mcg tablet RxNorm: 255011 TAKE ONE TABLET BY MOUTH DAILY 04/23/2015 01/17/2016 Inactive Lipitor 10 mg tablet RxNorm: 683549 TAKE ONE TABLET BY MOUTH EVERY DAY 04/23/2015 10/25/2015 Inactive Kenalog 40 mg/mL suspension for injection RxNorm: 5069668 Milliliter(s) Inj 03/19/2015 03/19/2015 Inactive Lexapro 20 mg tablet RxNorm: 841043 1 Tablet(s) PO daily 03/19/2015 07/16/2015 Inactive 1/2 tab daily x 10 days then 1 tab daily hydrocodone 10 mg-acetaminophen 325 mg tablet RxNorm: 178581 Tablet(s) PO TAKE ONE TO TWO TABLETS BY MOUTH EVERY 6 HOURS NEEDED FOR PAIN 03/19/2015 06/06/2016 Inactive (Appended: Controlled substance eRx refill - RxReferenceNumber: [id number]) Carafate 1 gram tablet RxNorm: 977753 1 Tablet(s) PO AC & HS 03/19/2015 06/16/2015 Inactive dissolve in water and take as a slurry hydrochlorothiazide 25 mg tablet RxNorm: 407144 1 Tablet(s) PO daily 03/12/2015 09/07/2015 Inactive Nexium 40 mg capsule,delayed release RxNorm: 667595 TAKE ONE CAPSULE BY MOUTH EVERY DAY 02/26/2015 12/22/2015 Inactive Cymbalta 60 mg capsule,delayed release RxNorm: 258161 TAKE ONE CAPSULE BY MOUTH TWICE A DAY 02/23/2015 03/18/2015 Inactive alprazolam 0.25 mg tablet RxNorm: 946988 1 Tablet(s) PO daily as needed 02/11/2015 05/10/2015 Inactive (Response to an electronic controlled substance refill request - RxReferenceNumber: [id number]) trazodone 50 mg tablet RxNorm: 434846 TAKE 1 AND 1/2 TABLET AT BEDTIME FOR 2 WEEKS, MAY INCREASE TO 2 TABLETS IF NECESSARY AFTER THAT 01/27/2015 05/24/2015 Inactive Augmentin 500 mg-125 mg tablet RxNorm: 169465 1 Tablet(s) PO TID 01/07/2015 01/13/2015 Inactive gentamicin 0.3 % eye drops RxNorm: 093037 3 Drop(s) OPH QID 01/07/2015 01/13/2015 Inactive [AttnRPh: Saving apply/adjudicate RxGRP:[id number] RxBIN:[id number] RxPCN: ID#:[id number]] scopolamine 1.5 mg transdermal 72 hour patch RxNorm: 760617 1 Patch TD q72 hours 01/07/2015 11/23/2015 Inactive Synthroid 100 mcg tablet RxNorm: 891843 TAKE ONE TABLET BY MOUTH ONCE A DAY 01/06/2015 04/22/2015 Inactive nystatin 100,000 unit/gram topical powder RxNorm: 834889 APPLY TOPICALLY TWO TIMES A DAY 12/18/2014 03/17/2015 Inactive alprazolam 0.25 mg tablet RxNorm: 018927 TAKE ONE TABLET BY MOUTH DAILY NEEDED 10/30/2014 11/28/2014 Inactive (Response to an electronic controlled substance refill request - RxReferenceNumber: [id number]) alprazolam 0.25 mg tablet RxNorm: 133721 Tablet(s) TAKE ONE TABLET BY MOUTH DAILY 10/30/2014 10/29/2014 Inactive (Response to an electronic controlled substance refill request - RxReferenceNumber: [id number]) Lipitor 10 mg tablet RxNorm: 474512 TAKE ONE TABLET BY MOUTH EVERY DAY 10/30/2014 02/26/2015 Inactive alprazolam 0.25 mg tablet RxNorm: 317637 TAKE ONE TABLET BY MOUTH DAILY 10/07/2014 10/29/2014 Inactive (Response to an electronic controlled substance refill request - RxReferenceNumber: [id number]) alprazolam 0.25 mg tablet RxNorm: 542534 TAKE ONE TABLET BY MOUTH DAILY 10/06/2014 10/07/2014 Inactive (Response to an electronic controlled substance refill request - RxReferenceNumber: [id number]) alprazolam 0.25 mg tablet RxNorm: 334594 Tablet(s) TAKE ONE TABLET BY MOUTH EVERY DAY NEEDED 09/30/2014 10/06/2014 Inactive (Response to an electronic controlled substance refill request - RxReferenceNumber: [id number]) Fioricet 50 mg-325 mg-40 mg tablet RxNorm: 821253 Tablet(s) TAKE ONE TABLET BY MOUTH EVERY 4 HOURS NEEDED FOR headache 09/29/2014 10/12/2014 Inactive (Response to an electronic controlled substance refill request - RxReferenceNumber: [id number]) Bystolic 10 mg tablet RxNorm: 385267 1 Tablet(s) PO daily TAKE ONE TABLET BY MOUTH EVERY DAY 09/29/2014 04/26/2015 Inactive Bystolic 5 mg tablet RxNorm: 161478 TAKE 1 AND 1/2 TABLETS ONCE DAILY 09/24/2014 09/23/2014 Inactive Bystolic 5 mg tablet RxNorm: 678550 Tablet(s) TAKE 1 AND 1/2 TABLETS ONCE DAILY 09/24/2014 09/18/2015 Inactive gentamicin 0.3 % eye drops RxNorm: 378665 3 Drop(s) OPH QID 09/23/2014 09/29/2014 Inactive trazodone 50 mg tablet RxNorm: 581945 TAKE 1 AND 1/2 TABLET AT BEDTIME FOR 2 WEEKS, MAY INCREASE TO 2 TABLETS IF NECESSARY AFTER THAT 09/22/2014 01/26/2015 Inactive Fioricet 50 mg-325 mg-40 mg tablet RxNorm: 039944 TAKE ONE TABLET BY MOUTH EVERY 4 HOURS NEEDED FOR PAIN 09/17/2014 09/28/2014 Inactive (Response to an electronic controlled substance refill request - RxReferenceNumber: [id number]) Duragesic 50 mcg/hr transdermal patch RxNorm: 840253 1 TD q72 hours 08/07/2014 01/06/2015 Inactive [SAVINGS FOR UNINSURED PATIENTS -- BIN:[id number], PCN: ASPROD1, Group: [facility], ID# [id number], Process claim through [employer], for questions: . THIS IS NOT INSURANCE.] alprazolam 0.25 mg tablet RxNorm: 857438 TAKE ONE TABLET BY MOUTH EVERY DAY NEEDED 07/31/2014 08/29/2014 Inactive (Response to an electronic controlled substance refill request - RxReferenceNumber: [id number]) alprazolam 0.25 mg tablet RxNorm: 527138 1 Tablet(s) PO daily as needed TAKE ONE TABLET BY MOUTH EVERY DAY NEEDED 07/30/2014 08/01/2014 Inactive (Response to an electronic controlled substance refill request - RxReferenceNumber: [id number]) Diflucan 150 mg tablet RxNorm: 032490 1 Tablet(s) PO daily 06/25/2014 07/01/2014 Inactive [SAVINGS FOR UNINSURED PATIENTS -- BIN:[id number], PCN: ASPROD1, Group: [id number], ID# [id number], Process claim through [employer], for questions: . THIS IS NOT INSURANCE.] Kenalog 40 mg/mL suspension for injection RxNorm: 8178463 Milliliter(s) Inj 06/23/2014 06/23/2014 Inactive [SAVINGS FOR UNINSURED PATIENTS -- BIN:443359, PCN: ASPROD1, Group: [id number], ID# [id number], Process claim through [employer], for questions: . THIS IS NOT INSURANCE.] ceftriaxone 500 mg solution for injection RxNorm: 661789 Inj 06/23/2014 06/23/2014 Inactive [SAVINGS FOR UNINSURED PATIENTS -- BIN:142357, PCN: ASPROD1, Group: [id number], ID# [id number], Process claim through [employer], for questions: . THIS IS NOT INSURANCE.] Levaquin 500 mg tablet RxNorm: 158857 1 Tablet(s) PO daily 06/23/2014 07/13/2014 Inactive [SAVINGS FOR UNINSURED PATIENTS -- BIN:344300, PCN: ASPROD1, Group: [id number], ID# [id number], Process claim through [employer], for questions: . THIS IS NOT INSURANCE.] Duragesic 50 mcg/hr transdermal patch RxNorm: 522182 1 TD q72 hours 06/05/2014 08/06/2014 Inactive [SAVINGS FOR UNINSURED PATIENTS -- BIN:[id number], PCN: ASPROD1, Group: [id number], ID# [id number], Process claim through [employer], for questions: . THIS IS NOT INSURANCE.] alprazolam 0.25 mg tablet RxNorm: 418979 1 Tablet(s) PO daily as needed TAKE ONE TABLET BY MOUTH EVERY DAY NEEDED 06/02/2014 07/29/2014 Inactive (Response to an electronic controlled substance refill request - RxReferenceNumber: [id number]) nystatin 100,000 unit/gram topical powder RxNorm: 988107 APPLY TO AFFECTED AREA(S) TWO TIMES A DAY 05/01/2014 06/14/2014 Inactive hydrochlorothiazide 25 mg tablet RxNorm: 669762 TAKE ONE TABLET BY MOUTH EVERY DAY MUST CALL MD FOR APPOINTMENT 04/24/2014 10/20/2014 Inactive alprazolam 0.25 mg tablet RxNorm: 707835 Tablet(s) TAKE ONE TABLET BY MOUTH EVERY DAY NEEDED 04/16/2014 06/02/2014 Inactive (Response to an electronic controlled substance refill request - RxReferenceNumber: [id number]) alprazolam 0.25 mg tablet RxNorm: 627243 TAKE ONE TABLET BY MOUTH EVERY DAY NEEDED 04/16/2014 05/15/2014 Inactive (Response to an electronic controlled substance refill request - RxReferenceNumber: [id number]) alprazolam 0.25 mg tablet RxNorm: 727173 TAKE ONE TABLET BY MOUTH EVERY DAY NEEDED 04/16/2014 05/15/2014 Inactive (Response to an electronic controlled substance refill request - RxReferenceNumber: [id number]) alprazolam 0.25 mg tablet RxNorm: 750212 TAKE ONE TABLET BY MOUTH EVERY DAY NEEDED 04/14/2014 04/16/2014 Inactive (Response to an electronic controlled substance refill request - RxReferenceNumber: [id number]) Lipitor 10 mg tablet RxNorm: 174381 TAKE ONE TABLET BY MOUTH EVERY DAY 04/14/2014 09/10/2014 Inactive alprazolam 0.25 mg tablet RxNorm: 126730 TAKE ONE TABLET BY MOUTH EVERY DAY NEEDED 04/14/2014 04/14/2014 Inactive (Response to an electronic controlled substance refill request - RxReferenceNumber: [id number]) alprazolam 0.25 mg tablet RxNorm: 467769 TAKE ONE TABLET BY MOUTH EVERY DAY NEEDED 04/14/2014 04/15/2014 Inactive (Response to an electronic controlled substance refill request - RxReferenceNumber: [id number]) alprazolam 0.25 mg tablet RxNorm: 132977 TAKE ONE TABLET BY MOUTH EVERY DAY NEEDED 04/14/2014 04/14/2014 Inactive (Response to an electronic controlled substance refill request [id number]) nystatin 100,000 unit/gram topical powder RxNorm: 964648 1 Application TOP BID 04/03/2014 07/01/2014 Inactive [SAVINGS FOR UNINSURED PATIENTS -- BIN:[id number], PCN: ASPROD1, Group: [id number], ID# [id number], Process claim through [employer], for questions: . THIS IS NOT INSURANCE.] Keflex 500 mg capsule RxNorm: 628476 1 Capsule(s) PO QID 04/03/2014 04/09/2014 Inactive [SAVINGS FOR UNINSURED PATIENTS -- BIN:188601, PCN: ASPROD1, Group: [id number], ID# [id number], Process claim through [employer], for questions: . THIS IS NOT INSURANCE.] Synthroid 100 mcg tablet RxNorm: 989235 1 Tablet(s) PO daily TAKE ONE TABLET BY MOUTH EVERY DAY 04/01/2014 01/05/2015 Inactive [SAVINGS FOR UNINSURED PATIENTS -- BIN:178022, PCN: ASPROD1, Group: [id number], ID# [id number], Process claim through [employer], for questions: . THIS IS NOT INSURANCE.] Duragesic 50 mcg/hr transdermal patch RxNorm: 295977 1 TD q72 hours 03/24/2014 06/04/2014 Inactive [SAVINGS FOR UNINSURED PATIENTS -- BIN:389415, PCN: ASPROD1, Group: [id number], ID# [id number], Process claim through [employer], for questions: . THIS IS NOT INSURANCE.] trazodone 50 mg tablet RxNorm: 370415 TAKE 1 AND 1/2 TABLET AT BEDTIME FOR 2 WEEKS, MAY INCREASE TO 2 TABLETS IF NECESSARY AFTER THAT 03/18/2014 09/13/2014 Inactive nystatin 100,000 unit/gram topical powder RxNorm: 253267 1 Application TOP BID 03/07/2014 03/16/2014 Inactive [SAVINGS FOR UNINSURED PATIENTS -- BIN:405146, PCN: ASPROD1, Group: [id number], ID# [id number], Process claim through [employer], for questions: . THIS IS NOT INSURANCE.] permethrin 5 % topical cream RxNorm: 725569 1 Application TOP daily 03/07/2014 11/23/2015 Inactive apply head to toe-leave on overnight and wash off in the a.m. May repeat x 1 if needed Diflucan 150 mg tablet RxNorm: 379441 1 Tablet(s) PO daily 03/07/2014 03/09/2014 Inactive [SAVINGS FOR UNINSURED PATIENTS -- BIN:571575, PCN: ASPROD1, Group: [id number], ID# [id number], Process claim through [employer], for questions: . THIS IS NOT INSURANCE.] hydrochlorothiazide 25 mg tablet RxNorm: 107709 TAKE ONE TABLET BY MOUTH EVERY DAY MUST CALL MD FOR APPOINTMENT 03/06/2014 04/23/2014 Inactive Zithromax Z-Sergio 250 mg tablet RxNorm: 084135 Tablet(s) PO as directed 03/04/2014 11/23/2015 Inactive [SAVINGS FOR UNINSURED PATIENTS -- BIN:960815, PCN: ASPROD1, Group: [id number], ID# [id number], Process claim through [employer], for questions: . THIS IS NOT INSURANCE.] Flonase 50 mcg/actuation nasal spray,suspension RxNorm: 137315 1 [place] NASAL daily 03/04/2014 07/01/2014 Inactive [SAVINGS FOR UNINSURED PATIENTS -- BIN:060255, PCN: ASPROD1, Group: [id number], ID# [id number], Process claim through [employer], for questions: . THIS IS NOT INSURANCE.] alprazolam 0.25 mg tablet RxNorm: 319781 1 Tablet(s) PO PRN TAKE ONE TABLET BY MOUTH EVERY DAY NEEDED 02/25/2014 04/14/2014 Inactive (Appended: Controlled substance eRx refill - RxReferenceNumber: [id number]) alprazolam 0.25 mg tablet RxNorm: 893131 TAKE ONE TABLET BY MOUTH EVERY DAY NEEDED 02/21/2014 03/22/2014 Inactive (Response to an electronic controlled substance refill request - RxReferenceNumber: [id number]) alprazolam 0.25 mg tablet RxNorm: 994583 TAKE ONE TABLET BY MOUTH EVERY DAY NEEDED 02/21/2014 03/22/2014 Inactive (Response to an electronic controlled substance refill request - RxReferenceNumber: [id number]) alprazolam 0.25 mg tablet RxNorm: 848705 TAKE ONE TABLET BY MOUTH EVERY DAY NEEDED 02/18/2014 03/19/2014 Inactive (Response to an electronic controlled substance refill request - RxReferenceNumber: [id number]) Cymbalta 60 mg capsule,delayed release RxNorm: 507692 TAKE ONE CAPSULE BY MOUTH TWICE A DAY 02/18/2014 01/13/2015 Inactive Nexium 40 mg capsule,delayed release RxNorm: 210210 TAKE ONE CAPSULE BY MOUTH EVERY DAY 02/18/2014 01/13/2015 Inactive Bactrim DS 800 mg-160 mg tablet RxNorm: 445009 1 Tablet(s) PO BID 02/13/2014 02/19/2014 Inactive probiotic while one antibiotic Bactrim DS 800 mg-160 mg tablet RxNorm: 000612 1 Tablet(s) PO BID 02/13/2014 02/12/2014 Inactive hydrocodone 10 mg-acetaminophen 325 mg tablet RxNorm: 109783 Tablet(s) PO TAKE ONE TO TWO TABLETS BY MOUTH EVERY 6 HOURS NEEDED FOR PAIN 02/06/2014 03/18/2015 Inactive (Appended: Controlled substance eRx refill - RxReferenceNumber: [id number]) Abilify 2 mg tablet RxNorm: 401438 Tablet(s) PO TAKE ONE TABLET BY MOUTH EVERY NIGHT AT BEDTIME 02/03/2014 03/19/2015 Inactive Duragesic 50 mcg/hr transdermal patch RxNorm: 033348 1 TD q72 hours 01/14/2014 03/23/2014 Inactive alprazolam 0.25 mg tablet RxNorm: 167901 1 Tablet(s) PO QDAY PRN 01/14/2014 02/12/2014 Inactive alprazolam 0.25 mg tablet RxNorm: 262208 Tablet(s) PO TAKE ONE TABLET BY MOUTH EVERY DAY NEEDED 01/14/2014 02/24/2014 Inactive (Appended: Controlled substance eRx refill - RxReferenceNumber: [id number]) Lipitor 10 mg tablet RxNorm: 528699 Tablet(s) PO TAKE ONE TABLET BY MOUTH EVERY DAY 01/14/2014 04/13/2014 Inactive Synthroid 100 mcg tablet RxNorm: 778926 Tablet(s) PO TAKE ONE TABLET BY MOUTH EVERY DAY 2013 03/31/2014 Inactive Fioricet 50 mg-325 mg-40 mg tablet RxNorm: 150465 Tablet(s) PO TAKE ONE TABLET BY MOUTH EVERY 4 HOURS NEEDED FOR PAIN 11/27/2013 09/17/2014 Inactive Fioricet 50 mg-325 mg-40 mg tablet RxNorm: 345404 Tablet(s) PO TAKE ONE TABLET BY MOUTH EVERY 4 HOURS NEEDED FOR PAIN 11/25/2013 11/26/2013 Inactive Zithromax Z-Sergio 250 mg tablet RxNorm: 727409 Tablet(s) PO as directed 11/11/2013 01/13/2014 Inactive Bystolic 10 mg tablet RxNorm: 525874 Tablet(s) PO TAKE ONE TABLET BY MOUTH EVERY DAY 10/21/2013 09/28/2014 Inactive Abilify 2 mg tablet RxNorm: 011618 1 Tablet(s) PO QHS 09/25/2013 01/22/2014 Inactive Synthroid 100 mcg tablet RxNorm: 070651 Tablet(s) PO TAKE ONE TABLET BY MOUTH EVERY DAY 09/24/2013 12/25/2013 Inactive Abilify 2 mg tablet RxNorm: 185352 1 Tablet(s) PO QHS 09/24/2013 09/24/2013 Inactive Rocephin 500 mg solution for injection RxNorm: 472140 1ml Milliliter(s) Inj 09/24/2013 09/24/2013 Inactive Rocephin 500 mg solution for injection RxNorm: 838018 1 Milliliter(s) Inj 09/19/2013 09/19/2013 Inactive Bystolic 5 mg tablet RxNorm: 227822 1 1/2 Tablet(s) PO daily 09/17/2013 03/15/2014 Inactive 1 1/2 daily may have 90 day if cheaper Bystolic 5 mg tablet RxNorm: 325503 1 1/2 Tablet(s) PO daily 09/17/2013 09/16/2013 Inactive 1 1/2 daily Lipitor 10 mg tablet RxNorm: 994969 Tablet(s) PO TAKE ONE TABLET BY MOUTH EVERY DAY 09/12/2013 01/13/2014 Inactive hydrocodone 10 mg-acetaminophen 325 mg tablet RxNorm: 709856 Tablet(s) PO TAKE ONE TO TWO TABLETS BY MOUTH EVERY 6 HOURS NEEDED FOR PAIN 09/09/2013 10/29/2017 Inactive (Appended: Controlled substance eRx refill - RxReferenceNumber: [id number]) hydrocodone 10 mg-acetaminophen 325 mg tablet RxNorm: 942189 1 Tablet(s) PO Q6 PRN 09/09/2013 02/06/2014 Inactive hydrocodone 10 mg-acetaminophen 325 mg tablet RxNorm: 252702 Tablet(s) PO TAKE ONE TO TWO TABLETS BY MOUTH EVERY 6 HOURS NEEDED FOR PAIN 09/06/2013 10/29/2017 Inactive (Appended: Controlled substance eRx refill - RxReferenceNumber: [id number]) Norvasc 10 mg tablet RxNorm: 340699 Tablet(s) PO TAKE ONE TABLET BY MOUTH EVERY DAY 09/05/2013 10/25/2015 Inactive trazodone 50 mg tablet RxNorm: 943016 1 1/2 Tablet(s) PO QHS 09/03/2013 03/17/2014 Inactive 75q hs x 2 week may increase to 100mg if nec after that nystatin 100,000 unit/mL oral suspension RxNorm: 145559 6 Milliliter(s) PO QID 08/06/2013 08/15/2013 Inactive Flonase 50 mcg/actuation nasal spray,suspension RxNorm: 710570 2 [place] NASAL daily 08/06/2013 03/03/2014 Inactive nystatin 100,000 unit/mL oral suspension RxNorm: 372299 6 Unit(s) PO QID 08/05/2013 08/05/2013 Inactive Phenergan with Codeine Syrup RxNorm: 5 Milliliter(s) PO Q4 PRN 08/05/2013 12/02/2013 Inactive 8 ounces alprazolam 0.25 mg tablet RxNorm: 713618 1 Tablet(s) PO QDAY PRN 07/29/2013 01/14/2014 Inactive Diflucan 150 mg tablet RxNorm: 049376 1 Tablet(s) PO daily 07/24/2013 07/26/2013 Inactive hydrochlorothiazide 25 mg tablet RxNorm: 521902 Tablet(s) PO TAKE ONE TABLET BY MOUTH EVERY DAY MUST CALL MD FOR APPOINTMENT 07/19/2013 03/05/2014 Inactive Phenergan with Codeine Syrup RxNorm: 10 Milliliter(s) PO Q4 PRN 07/10/2013 08/04/2013 Inactive 8 ounces Rocephin 500 mg solution for injection RxNorm: 1603022 1 Inj 07/10/2013 07/10/2013 Inactive cefdinir 300 mg capsule RxNorm: 149795 1 Capsule(s) PO BID 07/10/2013 07/16/2013 Inactive prednisone 10 mg tablet RxNorm: 892871 3 Tablet(s) PO daily 07/10/2013 07/14/2013 Inactive Carafate 100 mg/mL oral suspension RxNorm: 197174 10 Milliliter(s) PO Q6 PRN pt to take carafate 10mL every 6 hours as needed. 07/10/2013 08/05/2014 Inactive Kenalog 40 mg/mL suspension for injection RxNorm: 9098166 1 Milliliter(s) Inj 07/10/2013 07/10/2013 Inactive trazodone 50 mg tablet RxNorm: 723879 1 Tablet(s) PO QHS 07/10/2013 09/02/2013 Inactive sulfamethoxazole 800 mg-trimethoprim 160 mg tablet RxNorm: 448655 1 Tablet(s) PO BID 06/03/2013 06/12/2013 Inactive Synthroid 125 mcg tablet RxNorm: 820727 1 Tablet(s) PO daily 05/07/2013 09/23/2013 Inactive Bystolic 10 mg tablet RxNorm: 959046 1.5 Tablet(s) PO daily 05/07/2013 09/03/2013 Inactive Voltaren 1 % Topical Gel RxNorm: 896607 4 Gram(s) TOP QID apply 4 grams to knees, 2 grams to hands and ankles four times daily. 05/07/2013 09/03/2013 Inactive hydrocodone 10 mg-acetaminophen 325 mg tablet RxNorm: 474890 1 Tablet(s) PO Q6 PRN 04/23/2013 09/09/2013 Inactive Norvasc 10 mg tablet RxNorm: 605664 Tablet(s) PO TAKE ONE TABLET BY MOUTH EVERY DAY 04/23/2013 09/04/2013 Inactive alprazolam 0.25 mg tablet RxNorm: 076350 1 Tablet(s) PO QDAY PRN 03/25/2013 07/22/2013 Inactive Bystolic 10 mg tablet RxNorm: 385421 1 Tablet(s) PO daily TAKE ONE TABLET BY MOUTH EVERY DAY 03/25/2013 05/06/2013 Inactive zolpidem 10 mg tablet RxNorm: 221900 1 Tablet(s) PO HS PRN 03/25/2013 07/09/2013 Inactive gentamicin 0.3 % Eye Drops RxNorm: 826296 3 Drop(s) OPH QID three gtts to each eye QID x 7 days 03/11/2013 03/10/2013 Inactive gentamicin 0.3 % eye drops RxNorm: 879120 3 Drop(s) OPH QID three gtts to each eye QID x 7 days 03/11/2013 03/17/2013 Inactive Nexium 40 mg capsule,delayed release RxNorm: 815183 Capsule(s) PO TAKE ONE CAPSULE BY MOUTH EVERY DAY 02/15/2013 02/17/2014 Inactive Cymbalta 60 mg capsule,delayed release RxNorm: 830766 Capsule(s) PO TAKE ONE CAPSULE BY MOUTH TWICE A DAY 02/15/2013 02/17/2014 Inactive hydrocodone 10 mg-acetaminophen 325 mg tablet RxNorm: 9589582 1 Tablet(s) PO Q6 PRN 01/22/2013 04/22/2013 Inactive Lipitor 10 mg tablet RxNorm: 339295 Tablet(s) PO TAKE ONE TABLET BY MOUTH EVERY DAY 01/07/2013 09/11/2013 Inactive Cymbalta 60 mg capsule,delayed release RxNorm: 971376 Capsule(s) PO TAKE ONE CAPSULE BY MOUTH TWICE A DAY 01/02/2013 02/14/2013 Inactive Synthroid 100 mcg tablet RxNorm: 491056 1 Tablet(s) PO 12/03/2012 05/06/2013 Inactive Enablex 7.5 mg tablet,extended release RxNorm: 171001 1 Tablet(s) PO daily 11/28/2012 11/27/2012 Inactive Enablex 7.5 mg tablet,extended release RxNorm: 782230 1 Tablet(s) PO daily 11/28/2012 11/28/2012 Inactive scopolamine 1.5 mg 72 hr Transderm Patch RxNorm: 023246 1 Milligram(s) TD q72 hours 11/26/2012 05/06/2013 Inactive hydrochlorothiazide 25 mg tablet RxNorm: 885347 Tablet(s) PO TAKE ONE TABLET BY MOUTH EVERY DAY MUST CALL MD FOR APPOINTMENT 11/24/2012 07/18/2013 Inactive Cymbalta 60 mg capsule,delayed release RxNorm: 406651 Capsule(s) PO TAKE ONE CAPSULE BY MOUTH TWICE A DAY 10/26/2012 01/01/2013 Inactive Bystolic 10 mg tablet RxNorm: 854390 Tablet(s) PO TAKE ONE TABLET BY MOUTH EVERY DAY 10/12/2012 03/25/2013 Inactive zolpidem 10 mg tablet RxNorm: 734830 1 Tablet(s) PO HS PRN 10/02/2012 01/29/2013 Inactive alprazolam 0.25 mg tablet RxNorm: 641770 1 Tablet(s) PO QDAY PRN 10/02/2012 01/29/2013 Inactive Kenalog 40 mg/mL Susp for Injection RxNorm: 6889376 1 Milliliter(s) Inj 09/24/2012 09/24/2012 Inactive Diflucan 150 mg tablet RxNorm: 243966 1 Tablet(s) PO daily 09/24/2012 09/30/2012 Inactive acyclovir 400 mg tablet RxNorm: 389900 1 Tablet(s) PO QID 09/24/2012 10/08/2012 Inactive Cipro 500 mg tablet RxNorm: 415366 1 Tablet(s) PO BID 09/24/2012 09/30/2012 Inactive Tamiflu 75 mg capsule RxNorm: 868689 1 Capsule(s) PO BID 09/17/2012 09/16/2012 Inactive Tamiflu 75 mg capsule RxNorm: 454347 1 Capsule(s) PO BID 09/17/2012 09/16/2012 Inactive Tamiflu 75 mg capsule RxNorm: 139947 1 Capsule(s) PO BID please disregard order for #14 09/17/2012 09/21/2012 Inactive fluconazole 150 mg tablet RxNorm: 356794 1 Tablet(s) PO daily 09/10/2012 09/13/2012 Inactive ketoconazole 2 % Topical Cream RxNorm: 940940 Application TOP BID apply to affected area BID until gone 08/31/2012 11/01/2017 Inactive Norvasc 10 mg tablet RxNorm: 436385 Tablet(s) PO TAKE ONE TABLET BY MOUTH EVERY DAY 08/29/2012 04/22/2013 Inactive Cipro 500 mg tablet RxNorm: 710803 1 Tablet(s) PO BID 08/17/2012 08/26/2012 Inactive Flagyl 500 mg tablet RxNorm: 251243 1 Tablet(s) PO TID 08/17/2012 08/23/2012 Inactive Cipro 500 mg tablet RxNorm: 664092 1 Tablet(s) PO BID 08/17/2012 08/16/2012 Inactive zolpidem 10 mg tablet RxNorm: 764248 1 Tablet(s) PO HS PRN 08/17/2012 09/15/2012 Inactive Flagyl 500 mg tablet RxNorm: 983133 1 Tablet(s) PO TID 08/17/2012 08/16/2012 Inactive alprazolam 0.25 mg tablet RxNorm: 127568 1 Tablet(s) PO QDAY PRN 08/17/2012 09/15/2012 Inactive Belle Allergy 180 mg tablet RxNorm: 483484 1 Tablet(s) PO daily 08/08/2012 02/03/2013 Inactive hydrochlorothiazide 25 mg tablet RxNorm: 872985 1/2 Tablet(s) PO daily 08/08/2012 11/05/2012 Inactive needs appt Carafate 1 gram tablet RxNorm: 174871 1 Tablet(s) PO QID mix with 10 cc water and dissolve into slurry 08/08/2012 08/21/2012 Inactive hydrocodone 10 mg-acetaminophen 325 mg tablet RxNorm: 8958332 1 Tablet(s) PO Q6 PRN 08/08/2012 01/21/2013 Inactive Synthroid 100 mcg tablet RxNorm: 503268 1 Tablet(s) PO 08/08/2012 12/02/2012 Inactive Cymbalta 60 mg capsule,delayed release RxNorm: 423296 Capsule(s) PO 07/23/2012 10/25/2012 Inactive TAKE ONE CAPSULE BY MOUTH TWICE A DAY Nexium 40 mg capsule,delayed release RxNorm: 175400 Capsule(s) PO 06/20/2012 02/14/2013 Inactive TAKE ONE CAPSULE BY MOUTH EVERY DAY Lipitor 10 mg tablet RxNorm: 579224 Tablet(s) PO 06/20/2012 01/06/2013 Inactive TAKE ONE TABLET BY MOUTH EVERY DAY hydrochlorothiazide 25 mg tablet RxNorm: 952904 1 Tablet(s) PO daily 06/19/2012 08/07/2012 Inactive needs appt alprazolam 0.25 mg tablet RxNorm: 052447 1 Tablet(s) PO QDAY PRN 06/05/2012 07/04/2012 Inactive zolpidem 10 mg tablet RxNorm: 184121 1 Tablet(s) PO HS PRN 06/05/2012 07/04/2012 Inactive zolpidem 10 mg tablet RxNorm: 774038 1 Tablet(s) PO HS PRN 04/16/2012 05/15/2012 Inactive alprazolam 0.25 mg tablet RxNorm: 393820 1 Tablet(s) PO QDAY PRN 04/16/2012 05/15/2012 Inactive Cymbalta 60 mg capsule,delayed release RxNorm: 862826 1 Capsule(s) PO BID 03/22/2012 07/19/2012 Inactive Fioricet 50 mg-325 mg-40 mg tablet RxNorm: 193713 1 Tablet(s) PO Q4 PRN 03/22/2012 11/24/2013 Inactive Bystolic 10 mg tablet RxNorm: 937776 Tablet(s) PO 03/22/2012 10/11/2012 Inactive TAKE ONE TABLET BY MOUTH EVERY DAY potassium chloride ER 10 mEq Tab RxNorm: 645970 1 Tablet(s) PO daily 02/24/2012 03/01/2012 Inactive Lasix 20 mg Tab RxNorm: 253840 1 Tablet(s) PO daily 02/22/2012 02/21/2012 Inactive KCL 10 meq RxNorm: 1 PO daily 02/22/2012 02/21/2012 Inactive potassium chloride ER 10 mEq Tab RxNorm: 873010 1 Tablet(s) PO daily 02/22/2012 02/21/2012 Inactive Lasix 20 mg Tab RxNorm: 063756 1 Tablet(s) PO daily 02/22/2012 02/28/2012 Inactive KCL 10 meq RxNorm: 1 PO daily 02/22/2012 02/22/2012 Inactive potassium chloride ER 10 mEq Tab RxNorm: 362478 1 Tablet(s) PO daily 02/22/2012 02/23/2012 Inactive Rocephin 500 mg Solution for Injection RxNorm: 5179455 Inj 02/15/2012 02/15/2012 Inactive Nexium 40 mg capsule,delayed release RxNorm: 279749 1 Capsule(s) PO daily 02/15/2012 No Stop Date Active Bystolic 10 mg Tab RxNorm: 254935 1 Tablet(s) PO daily 02/15/2012 08/12/2012 Inactive alprazolam 0.25 mg tablet RxNorm: 733122 1 Tablet(s) PO QDAY PRN 01/31/2012 02/29/2012 Inactive zolpidem 10 mg tablet RxNorm: 836721 1 Tablet(s) PO HS PRN 01/31/2012 02/29/2012 Inactive alprazolam 0.25 mg Tab RxNorm: 677305 1 Tablet(s) PO QDAY PRN 12/16/2011 01/14/2012 Inactive zolpidem 10 mg Tab RxNorm: 883479 1 Tablet(s) PO HS PRN 12/16/2011 01/14/2012 Inactive Norvasc 10 mg tablet RxNorm: 623316 1 Tablet(s) PO daily 12/02/2011 02/21/2012 Inactive Lipitor 10 mg tablet RxNorm: 214390 1 Tablet(s) PO daily 11/16/2011 05/13/2012 Inactive zolpidem 10 mg Tab RxNorm: 498457 1 Tablet(s) PO HS PRN 10/26/2011 12/15/2011 Inactive alprazolam 0.25 mg Tab RxNorm: 258799 1 Tablet(s) PO QDAY PRN 10/26/2011 12/15/2011 Inactive hydrochlorothiazide 25 mg tablet RxNorm: 358566 1 Tablet(s) PO daily 09/05/2011 03/02/2012 Inactive Synthroid 75 mcg tablet RxNorm: 900543 1 Tablet(s) PO daily 08/01/2011 02/26/2012 Inactive Abilify 2 mg Tab RxNorm: 136038 1 Tablet(s) PO QHS 08/01/2011 09/10/2012 Inactive dicyclomine 10 mg Cap RxNorm: 578985 1 Capsule(s) PO TID 08/01/2011 10/29/2011 Inactive alprazolam 0.25 mg Tab RxNorm: 945199 1 Tablet(s) PO QDAY PRN 07/26/2011 10/25/2011 Inactive Fioricet 50 mg-325 mg-40 mg tablet RxNorm: 034424 1 Tablet(s) PO Q4 PRN 07/14/2011 03/21/2012 Inactive Rocephin 500 mg Solution for Injection RxNorm: 0880788 1 Milliliter(s) Inj 07/14/2011 08/01/2011 Inactive Nexium 40 mg Capsule, delayed release RxNorm: 601139 1 Capsule(s) PO daily 05/23/2011 10/06/2011 Inactive Bystolic 10 mg tablet RxNorm: 828433 1 Tablet(s) PO daily 05/23/2011 11/18/2011 Inactive Bystolic 10 mg Tab RxNorm: 664650 1 Tablet(s) PO daily 05/23/2011 05/22/2011 Inactive alprazolam 0.25 mg Tab RxNorm: 121217 1 Tablet(s) PO QDAY PRN 05/23/2011 07/25/2011 Inactive Influenza Virus Vaccine 0.5 mL RxNorm: IM 05/23/2011 05/23/2011 Inactive zolpidem 10 mg Tab RxNorm: 178102 1 Tablet(s) PO HS PRN 05/23/2011 10/25/2011 Inactive Rocephin 500 mg Solution for Injection RxNorm: 0683527 1 Milliliter(s) Inj 05/03/2011 07/14/2011 Inactive Kenalog 40 mg/mL Susp for Injection RxNorm: 8720737 1 Milliliter(s) Inj 05/03/2011 07/14/2011 Inactive Bactrim DS 800 mg-160 mg Tab RxNorm: 412206 1 Tablet(s) PO BID 05/03/2011 08/01/2011 Inactive Bystolic 10 mg tablet RxNorm: 137437 1 Tablet(s) PO daily No Start Date Active Flonase 50 mcg/actuation nasal spray,suspension RxNorm: 9338120 2 [place] NASAL daily No Start Date 08/05/2013 Inactive Levaquin 500 mg tablet RxNorm: 457392 Tablet(s) PO No Start Date 04/19/2017 Inactive Duragesic 50 mcg/hr transdermal patch RxNorm: 690615 1 TD q72 hours No Start Date 01/13/2014 Inactive Vesicare 5 mg tablet RxNorm: 840441 1 Tablet(s) PO daily No Start Date 01/06/2015 Inactive Celebrex 200 mg capsule RxNorm: 088685 1 Capsule(s) PO daily No Start Date 04/02/2014 Inactive zolpidem 10 mg Tab RxNorm: 220837 1 Tablet(s) PO HS PRN No Start Date 05/22/2011 Inactive Zyrtec 10 mg Tab RxNorm: 2611576 1 Tablet(s) PO daily No Start Date 08/08/2012 Inactive Flonase 50 mcg/actuation nasal spray,suspension RxNorm: 4491419 1 [place] NASAL daily No Start Date 11/07/2017 Inactive 1 spray to each nostril daily Nexium 40 mg Cap RxNorm: 194265 1 Capsule(s) PO daily No Start Date 05/22/2011 Inactive ketoconazole 2 % Topical Cream RxNorm: 948211 Application TOP BID apply to affected area BID until gone No Start Date 08/30/2012 Inactive aspirin 81 mg tablet RxNorm: 645184 1 Tablet(s) PO daily No Start Date 11/13/2017 Inactive Cymbalta 60 mg capsule,delayed release RxNorm: 704375 1 Capsule(s) PO BID No Start Date 03/21/2012 Inactive alprazolam 0.25 mg Tab RxNorm: 332175 1 Tablet(s) PO QDAY PRN No Start Date 05/22/2011 Inactive baclofen 10 mg tablet RxNorm: 853338 1 Tablet(s) PO TID as needed muscle spasms No Start Date 11/14/2017 Inactive Toprol XL 100 mg 24 hr Tab RxNorm: 053626 1 Tablet(s) PO BID No Start Date 04/25/2011 Inactive Xanax 0.25 mg tablet RxNorm: 258426 1 Tablet(s) PO daily as needed No Start Date 12/27/2015 Inactive Bystolic 10 mg Tab RxNorm: 091012 1 Tablet(s) PO daily No Start Date 05/22/2011 Inactive Fioricet 50 mg-325 mg-40 mg Tab RxNorm: 890321 1 Tablet(s) PO Q4 PRN No Start Date 07/13/2011 Inactive albuterol sulfate HFA 90 mcg/Actuation Aerosol Inhaler RxNorm: 5150519 1 INH Q4 PRN No Start Date 01/06/2015 Inactive Imitrex 50 mg tablet RxNorm: 763914 1 Tablet(s) PO Q8 as needed may repeat x1 dose in 1 hour of inital dose. No Start Date 02/24/2016 Inactive dc fioricet Tessalon 200 mg Cap RxNorm: 556879 1 Capsule(s) PO Q4 PRN No Start Date 02/14/2012 Inactive Zithromax Z-Sergio 250 mg tablet RxNorm: 019496 Tablet(s) PO No Start Date 11/10/2013 Inactive hydrochlorothiazide 25 mg Tab RxNorm: 853807 1 Tablet(s) PO daily No Start Date 09/04/2011 Inactive Fish Oil 1,000 mg Cap RxNorm: 1 Capsule(s) PO TID No Start Date 11/08/2017 Inactive Deplin 15 mg Tab RxNorm: 1 Tablet(s) PO daily No Start Date 08/01/2011 Inactive Brilinta 90 mg tablet RxNorm: 6015498 1 Tablet(s) PO BID No Start Date 11/23/2015 Inactive Synthroid 75 mcg Tab RxNorm: 824093 1 Tablet(s) PO daily No Start Date 07/31/2011 Inactive ciprofloxacin 0.3 % eye drops RxNorm: 485307 2 Drop(s) ophthalmic (eye) Q2H while awake x 2 days, then Q4H x 5 days No Start Date 11/22/2017 Inactive scopolamine 1.5 mg 72 hr Transderm Patch RxNorm: 258778 1 Milligram(s) TD q72 hours No Start Date 11/25/2012 Inactive hydrocodone-acetaminophen 10 mg-325 mg tablet RxNorm: 4589005 1 Tablet(s) PO Q6 PRN No Start Date 08/07/2012 Inactive Phenergan with Codeine Syrup RxNorm: 5-10 Milliliter(s) PO Q6 PRN No Start Date 02/14/2012 Inactive Norvasc 10 mg Tab RxNorm: 417546 1 Tablet(s) PO daily No Start Date 12/01/2011 Inactive Zithromax Z-Sergio 250 mg Tab RxNorm: 211366 Tablet(s) PO No Start Date 08/01/2011 Inactive Medication Administered Medication Codes Instructions Start Date Status ceftriaxone 500 mg solution for injection RxNorm: 4543634 05/28/2018 No longer Active Kenalog 40 mg/mL suspension for injection RxNorm: 1929290 Milliliter 05/28/2018 No longer Active ceftriaxone 500 mg solution for injection RxNorm: 7450714 500Milligram 01/19/2018 No longer Active Kenalog 40 mg/mL suspension for injection RxNorm: 2231417 1Milliliter 01/19/2018 No longer Active Kenalog 40 mg/mL suspension for injection RxNorm: 3813186 1Milliliter 06/27/2017 No longer Active Kenalog 40 mg/mL suspension for injection RxNorm: 9455163 Milliliter 04/20/2017 No longer Active Kenalog 40 mg/mL suspension for injection RxNorm: 0230531 1Milliliter 03/14/2017 No longer Active ceftriaxone 500 mg solution for injection RxNorm: 1897105 1Milliliter 11/28/2016 No longer Active Kenalog 40 mg/mL suspension for injection RxNorm: 2256088 Milliliter 11/07/2016 No longer Active ceftriaxone 500 mg solution for injection RxNorm: 4585347 11/07/2016 No longer Active ceftriaxone 500 mg solution for injection RxNorm: 3758556 12/07/2015 No longer Active Kenalog 40 mg/mL suspension for injection RxNorm: 0968142 1Milliliter 11/24/2015 No longer Active ceftriaxone 500 mg solution for injection RxNorm: 4235752 Milliliter 11/24/2015 No longer Active promethazine 25 mg/mL injection solution RxNorm: 990639 Milliliter 08/27/2015 No longer Active ketorolac 60 mg/2 mL intramuscular solution RxNorm: 099283 Milliliter 08/27/2015 No longer Active Kenalog 40 mg/mL suspension for injection RxNorm: 9682100 Milliliter 08/10/2015 No longer Active ceftriaxone 500 mg solution for injection RxNorm: 0404925 08/10/2015 No longer Active ceftriaxone 500 mg solution for injection RxNorm: 6862636 1Milliliter 07/28/2015 No longer Active Kenalog 40 mg/mL suspension for injection RxNorm: 0144307 Milliliter 03/19/2015 No longer Active Kenalog 40 mg/mL suspension for injection RxNorm: 7955557 Milliliter 06/23/2014 No longer Active ceftriaxone 500 mg solution for injection RxNorm: 192356 06/23/2014 No longer Active Rocephin 500 mg solution for injection RxNorm: 027960 1mlMilliliter 09/24/2013 No longer Active Rocephin 500 mg solution for injection RxNorm: 830940 1Milliliter 09/19/2013 No longer Active Rocephin 500 mg solution for injection RxNorm: 9948083 1 07/10/2013 No longer Active Kenalog 40 mg/mL suspension for injection RxNorm: 6300932 1Milliliter 07/10/2013 No longer Active Kenalog 40 mg/mL Susp for Injection RxNorm: 2322997 1Milliliter 09/24/2012 No longer Active Rocephin 500 mg Solution for Injection RxNorm: 6401050 02/15/2012 No longer Active Influenza Virus Vaccine 0.5 mL RxNorm: 05/23/2011 No longer Active Immunizations Vaccine Codes Date Status Influenza CVX: 141 06/24/2013 completed Pneumococcal CVX: 33 06/24/2013 completed PPD Unknown 05/13/2013 completed Assessments Condition Codes Effective Dates 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.1 ICD-9: 564.5 01/29/2019 [...] Visit Reason For Visit Effective Dates Notes diarrhea 01/29/2019 hypertension 11/13/2018 hypertension 10/30/2018 eye [...] (3rd IS) 4.03 uIU/mL 02/15/2019 Free T4 [id number] FREE T4 0.71 ng/dL 02/15/2019 Lipid Ord30 CHOL 193 mg/dL 01/01/2019 Lipid Ord30 HDL 45.0 mg/dl 01/01/2019 Lipid Ord30 TRIG 111 mg/dL 01/01/2019 Lipid Ord30 LDL 126 mg/dL 01/01/2019 Lipid Ord30 C/HDL 4.3 Ratio 01/01/2019 Comp Metabolic Juc778 NA 140 mEq/L 01/01/2019 Comp Metabolic Ksj372 K 3.8 mEq/L 01/01/2019 Comp Metabolic Cyx938 CL 103 mEq/L 01/01/2019 Comp Metabolic Egg927 CO2 28.0 mEq/L 01/01/2019 Comp Metabolic Hla900 ANION GAP 13 01/01/2019 Comp Metabolic Lvy142 GLUCOSE 93 mg/dL 01/01/2019 Comp Metabolic Ryn548 Creat 0.7 mg/dL 01/01/2019 Comp Metabolic Sgu327 eGFR 86 ml/min/1.73m2 01/01/2019 Comp Metabolic Wlf634 BUN 21 mg/dL 01/01/2019 Comp Metabolic Hix619 B/C Ratio 29.6 Ratio 01/01/2019 Comp Metabolic Xdk444 CALCIUM 9.4 mg/dL 01/01/2019 Comp Metabolic Ycf454 ALK PHOS 67 U/L 01/01/2019 Comp Metabolic Gke632 AST(SGOT) 27 U/L 01/01/2019 Comp Metabolic Yve266 ALT(SGPT) 30 U/L 01/01/2019 Comp Metabolic Yye283 BILI T 0.5 mg/dL 01/01/2019 Comp Metabolic Kox899 ALBUMIN 4.0 g/dL 01/01/2019 Comp Metabolic Suw577 TPRO 6.8 g/dL 01/01/2019 Comp Metabolic Ktm247 GLOB 2.8 g/dL 01/01/2019 Comp Metabolic Upz872 A/G Ratio 1.4 Ratio 01/01/2019 Comp Metabolic Ezu813 Osmo 282 mOsmo 01/01/2019 Free T4 Kzo885 FREE T4 0.71 ng/dL 10/31/2018 Tsh Ord6 TSH (3rd IS) 7.87 uIU/mL 10/31/2018 Lipid Ord30 CHOL 170 mg/dL 10/31/2018 Lipid Ord30 HDL 53.0 mg/dl 10/31/2018 Lipid Ord30 TRIG 85 mg/dL 10/31/2018 Lipid Ord30 LDL 100 mg/dL 10/31/2018 Lipid Ord30 C/HDL 3.2 Ratio 10/31/2018 Comp Metabolic Bik729 NA 142 mEq/L 10/31/2018 Comp Metabolic Trd138 K 4.0 mEq/L 10/31/2018 Comp Metabolic Bwe940 CL 106 mEq/L 10/31/2018 Comp Metabolic Ebd111 CO2 27.0 mEq/L 10/31/2018 Comp Metabolic Rtq682 ANION GAP 13 10/31/2018 Comp Metabolic Niu821 GLUCOSE 114 mg/dL 10/31/2018 Comp Metabolic Vso804 Creat 0.7 mg/dL 10/31/2018 Comp Metabolic Wvl560 eGFR 90 ml/min/1.73m2 10/31/2018 Comp Metabolic Hvk460 BUN 21 mg/dL 10/31/2018 Comp Metabolic Ovn835 B/C Ratio 30.9 Ratio 10/31/2018 Comp Metabolic Wax240 CALCIUM 9.7 mg/dL 10/31/2018 Comp Metabolic Mdp668 ALK PHOS 63 U/L 10/31/2018 Comp Metabolic Mqv672 AST(SGOT) 24 U/L 10/31/2018 Comp Metabolic Gut546 ALT(SGPT) 21 U/L 10/31/2018 Comp Metabolic Bjd835 BILI T 0.6 mg/dL 10/31/2018 Comp Metabolic Yup626 ALBUMIN 4.1 g/dL 10/31/2018 Comp Metabolic Nvf967 TPRO 6.6 g/dL 10/31/2018 Comp Metabolic Kdf247 GLOB 2.5 g/dL 10/31/2018 Comp Metabolic Sbb580 A/G Ratio 1.7 Ratio 10/31/2018 Comp Metabolic Wna985 Osmo 287 mOsmo 10/31/2018 Cbc With Differential [...] 30.9 pg 10/31/2018 Cbc With Differential Ord2 Amite% 8.0 % 10/31/2018 Cbc With Differential Ord2 [...] 1.88 K/ul 10/31/2018 Cbc With Differential Ord2 Amite ABS# 0.6 K/ul 10/31/2018 Cbc With Differential Ord2 Eos ABS# 0.5 K/ul 10/31/2018 Cbc With Differential Ord2 Baso ABS# 0.1 K/ul 10/31/2018 Comp Metabolic Vhk057 NA 141 mEq/L 09/12/2017 Comp Metabolic Qyf784 K 4.1 mEq/L 09/12/2017 Comp Metabolic Pmd737 CL 105 mEq/L 09/12/2017 Comp Metabolic Kyg847 CO2 30.0 mEq/L 09/12/2017 Comp Metabolic Qbb934 ANION GAP 10 09/12/2017 Comp Metabolic Tun124 GLUCOSE 97 mg/dL 09/12/2017 Comp Metabolic Epg003 Creat 0.7 mg/dL 09/12/2017 Comp Metabolic Ebk672 eGFR 91 ml/min/1.73m2 09/12/2017 Comp Metabolic Oum948 BUN 18 mg/dL 09/12/2017 Comp Metabolic Wqi044 B/C Ratio 26.5 Ratio 09/12/2017 Comp Metabolic Xon377 CALCIUM 9.7 mg/dL 09/12/2017 Comp Metabolic Qqk940 ALK PHOS 60 U/L 09/12/2017 Comp Metabolic Ogy077 AST(SGOT) 22 U/L 09/12/2017 Comp Metabolic Sch339 ALT(SGPT) 23 U/L 09/12/2017 Comp Metabolic Lzf432 BILI T 0.4 mg/dL 09/12/2017 Comp Metabolic Ods211 ALBUMIN 3.8 g/dL 09/12/2017 Comp Metabolic Ovp778 TPRO 6.4 g/dL 09/12/2017 Comp Metabolic Ayx649 GLOB 2.6 g/dL 09/12/2017 Comp Metabolic Hji309 A/G Ratio 1.5 Ratio 09/12/2017 Comp Metabolic Aze066 Osmo 283 mOsmo 09/12/2017 Cbc With Differential [...] 30.7 pg 09/12/2017 Cbc With Differential Ord2 Amite% 7.2 % 09/12/2017 Cbc With Differential Ord2 [...] 2.46 K/ul 09/12/2017 Cbc With Differential Ord2 Amite ABS# 0.6 K/ul 09/12/2017 Cbc With Differential [...] 31.4 pg 11/07/2016 Cbc With Differential Ord2 Amite% 6.1 % 11/07/2016 Cbc With Differential Ord2 [...] 2.48 K/ul 11/07/2016 Cbc With Differential Ord2 Amite ABS# 0.6 K/ul 11/07/2016 Cbc With Differential Ord2 Eos ABS# 0.3 K/ul 11/07/2016 Cbc With Differential Ord2 Baso ABS# 0.1 K/ul 11/07/2016 Comp Metabolic Lfs797 NA 139 mEq/L 11/07/2016 Comp Metabolic Mnp246 K 3.8 mEq/L 11/07/2016 Comp Metabolic Fxk295 CL 106 mEq/L 11/07/2016 Comp Metabolic Kpx127 CO2 25.0 mEq/L 11/07/2016 Comp Metabolic Uic315 ANION GAP 12 11/07/2016 Comp Metabolic Qag525 GLUCOSE 98 mg/dL 11/07/2016 Comp Metabolic Pvt750 Creat 0.8 mg/dL 11/07/2016 Comp Metabolic Abw636 eGFR 71 ml/min/1.73m2 11/07/2016 Comp Metabolic Kzr695 BUN 36 mg/dL 11/07/2016 Comp Metabolic Osp092 B/C Ratio 42.9 Ratio 11/07/2016 Comp Metabolic Tio855 CALCIUM 9.9 mg/dL 11/07/2016 Comp Metabolic Wmy884 ALK PHOS 57 U/L 11/07/2016 Comp Metabolic Rtp745 AST(SGOT) 24 U/L 11/07/2016 Comp Metabolic Blg990 ALT(SGPT) 28 U/L 11/07/2016 Comp Metabolic Ske513 BILI T 0.4 mg/dL 11/07/2016 Comp Metabolic Jll828 ALBUMIN 4.2 g/dL 11/07/2016 Comp Metabolic Fpv871 TPRO 7.0 g/dL 11/07/2016 Comp Metabolic Fxk603 GLOB 2.8 g/dL 11/07/2016 Comp Metabolic Sha776 A/G Ratio 1.5 Ratio 11/07/2016 Comp Metabolic Gil760 Osmo 286 mOsmo 11/07/2016 Free T4 Phg698 FREE T4 0.75 ng/dL 11/07/2016 Tsh Ord6 hTSH II 3.46 uIU/mL 11/07/2016 Comp Metabolic Bql093 NA 138 mEq/L 05/10/2016 Comp Metabolic Ynx599 K 3.8 mEq/L 05/10/2016 Comp Metabolic Dhe997 CL 102 mEq/L 05/10/2016 Comp Metabolic Jcg483 CO2 29.0 mEq/L 05/10/2016 Comp Metabolic Nsn264 ANION GAP 11 05/10/2016 Comp Metabolic Aic694 GLUCOSE 107 mg/dL 05/10/2016 Comp Metabolic Nxk142 Creat 0.7 mg/dL 05/10/2016 Comp Metabolic Rcv400 eGFR 93 ml/min/1.73m2 05/10/2016 Comp Metabolic Rqw094 BUN 18 mg/dL 05/10/2016 Comp Metabolic Mtk215 B/C Ratio 26.9 Ratio 05/10/2016 Comp Metabolic Rbd787 CALCIUM 9.8 mg/dL 05/10/2016 Comp Metabolic Swq815 ALK PHOS 60 U/L 05/10/2016 Comp Metabolic Eub293 AST(SGOT) 21 U/L 05/10/2016 Comp Metabolic Dxy406 ALT(SGPT) 23 U/L 05/10/2016 Comp Metabolic Ubo266 BILI T 0.5 mg/dL 05/10/2016 Comp Metabolic Akg315 ALBUMIN 4.1 g/dL 05/10/2016 Comp Metabolic Noy571 TPRO 6.7 g/dL 05/10/2016 Comp Metabolic Wwh652 GLOB 2.7 g/dL 05/10/2016 Comp Metabolic Jqb410 A/G Ratio 1.5 Ratio 05/10/2016 Comp Metabolic Pye471 Osmo 278 mOsmo 05/10/2016 Lipid Ord30 CHOL 169 mg/dL 05/10/2016 Lipid Ord30 HDL 50.0 mg/dl 05/10/2016 Lipid Ord30 TRIG 161 mg/dL 05/10/2016 Lipid Ord30 LDL 87 mg/dL 05/10/2016 Lipid Ord30 C/HDL 3.4 Ratio 05/10/2016 Comp Metabolic Zom397 NA 137 mEq/L 06/12/2015 Comp Metabolic Lwb558 K 3.8 mEq/L 06/12/2015 Comp Metabolic Imh741 CL 104 mEq/L 06/12/2015 Comp Metabolic Pgc243 CO2 24.0 mEq/L 06/12/2015 Comp Metabolic Ykk642 ANION GAP 13 06/12/2015 Comp Metabolic Rzo189 GLUCOSE 92 mg/dL 06/12/2015 Comp Metabolic Nvm396 Creat 0.7 mg/dL 06/12/2015 Comp Metabolic Ihn085 eGFR 87 ml/min/1.73m2 06/12/2015 Comp Metabolic Sff059 BUN 31 mg/dL 06/12/2015 Comp Metabolic Djn953 B/C Ratio 43.7 Ratio 06/12/2015 Comp Metabolic Dcl545 CALCIUM 10.0 mg/dL 06/12/2015 Comp Metabolic Axl331 ALK PHOS 58 U/L 06/12/2015 Comp Metabolic Fzg339 AST(SGOT) 32 U/L 06/12/2015 Comp Metabolic Rrd132 ALT(SGPT) 33 U/L 06/12/2015 Comp Metabolic Qyr418 BILI T 0.5 mg/dL 06/12/2015 Comp Metabolic Gfg484 ALBUMIN 4.1 g/dL 06/12/2015 Comp Metabolic Yxp287 TPRO 6.6 g/dL 06/12/2015 Comp Metabolic Vwc022 GLOB 2.5 g/dL 06/12/2015 Comp Metabolic Vsv628 A/G Ratio 1.6 Ratio 06/12/2015 Comp Metabolic Lzn195 Osmo 280 mOsmo 06/12/2015 Cbc With Differential [...] Differential Ord2 RDW 14.2 % 06/12/2015 CBC 4554681 WBC 8.7 10e9/L 04/30/2013 CBC 1470821 RBC 4.63 10e12/L 04/30/2013 CBC 6975869 HGB 14.1 g/dL 04/30/2013 CBC 2959628 HCT DET 42.2 % 04/30/2013 CBC 8050083 MCV 91.1 fL 04/30/2013 CBC 9024057 MCH 30.5 pg 04/30/2013 CBC 9018615 MCHC 33.4 g/dL 04/30/2013 CBC 3982407 PLT 248 10e9/L 04/30/2013 CBC 6035912 MPV 12.1 fL 04/30/2013 CBC 5539943 LARA % 59.0 % 04/30/2013 CBC 2247602 LY % 27.6 % 04/30/2013 CBC 5922683 MON % 8.0 % 04/30/2013 CBC 3903169 EOS % 4.8 % 04/30/2013 CBC 2975998 BASO % 0.6 % 04/30/2013 CBC 4324391 RDW 13.3 % 04/30/2013 CBC 4798924 ABS LARA 5.13 10e9/L 04/30/2013 CBC 3515858 ABS LYMPH 2.40 10e9/L 04/30/2013 CBC 9970247 ABS MONO 0.70 10e9/L 04/30/2013 CBC 1303860 ABS EOS 0.42 10e9/L 04/30/2013 CBC 5044736 ABS BASO 0.05 10e9/L 04/30/2013 CBC 8670808 RDW-SD 43.1 fL 04/30/2013 TSH 6772420 TSH 4.339 uIU/ML 04/30/2013 A1C HPLC 2918606 A1C HPLC 43533-3 5.6 % 04/30/2013 FREE T4 7017222 FREE T4 0.84 NG/DL 04/30/2013 GFR CALC 0473569 GFR AA >60 ML/MIN 04/30/2013 GFR CALC 6692523 GFR NON-AA >60 ML/MIN 04/30/2013 CHEM 14 6187991 AST 22 U/L 04/30/2013 CHEM 14 9085736 ALT 22 IU/L 04/30/2013 CHEM 14 4746600 BUN 24 MG/DL 04/30/2013 CHEM 14 4326118 ALBUMIN 4.2 GM/DL 04/30/2013 CHEM 14 8595312 CHLORIDE 107 MMOL/L 04/30/2013 CHEM 14 9300102 BILI TOT 0.3 MG/DL 04/30/2013 CHEM 14 5810211 ALK PHOS 88 U/L 04/30/2013 CHEM 14 9810353 SODIUM 141 MMOL/L 04/30/2013 CHEM 14 7760178 CREATININE 0.60 MG/DL 04/30/2013 CHEM 14 8766349 CALCIUM 9.9 MG/DL 04/30/2013 CHEM 14 8490777 POTASSIUM 3.7 MMOL/L 04/30/2013 CHEM 14 1314576 PROT TOT 6.6 GM/DL 04/30/2013 CHEM 14 4637241 GLUCOSE 123 MG/DL 04/30/2013 CHEM 14 1232662 BICARB 25 MMOL/L 04/30/2013 CHEM 14 6665840 ANION GAP 9 MEQ/L 04/30/2013 LIPID GRP HDL TEST 46 MG/DL 04/30/2013 LIPID GRP TRIG 148 MG/DL 04/30/2013 LIPID GRP TEST LDL 75 MG/DL 04/30/2013 LIPID GRP CHOL 151 MG/DL 04/30/2013 LIPID GRP RCHOL/HDL 3.28 RATIO 04/30/2013 TSH 0102825 TSH 3.341 uIU/ML 11/29/2012 CBC 7585653 WBC 8.4 10e9/L 11/29/2012 CBC 0678990 RBC 4.77 10e12/L 11/29/2012 CBC 1979366 HGB 14.9 g/dL 11/29/2012 CBC 5625554 HCT DET 44.2 % 11/29/2012 CBC 8137219 MCV 92.7 fL 11/29/2012 CBC 2061211 MCH 31.2 pg 11/29/2012 CBC 0928660 MCHC 33.7 g/dL 11/29/2012 CBC 7785774 PLT 253 10e9/L 11/29/2012 CBC 0113837 MPV 11.8 fL 11/29/2012 CBC 2607939 LARA % 54.9 % 11/29/2012 CBC 1272681 LY % 29.0 % 11/29/2012 CBC 4344384 MON % 10.4 % 11/29/2012 CBC 6547725 EOS % 5.1 % 11/29/2012 CBC 8669322 BASO % 0.6 % 11/29/2012 CBC 1875902 RDW 13.8 % 11/29/2012 CBC 2916149 ABS LARA 4.61 10e9/L 11/29/2012 CBC 9520388 ABS LYMPH 2.44 10e9/L 11/29/2012 CBC 7007013 ABS MONO 0.87 10e9/L 11/29/2012 CBC 8189857 ABS EOS 0.43 10e9/L 11/29/2012 CBC 4796244 ABS BASO 0.05 10e9/L 11/29/2012 CBC 9259197 RDW-SD 45.9 fL 11/29/2012 CHEM 14 0630780 AST 25 U/L 11/29/2012 CHEM 14 4624184 ALT 26 IU/L 11/29/2012 CHEM 14 5797754 BUN 25 MG/DL 11/29/2012 CHEM 14 5247075 ALBUMIN 4.4 GM/DL 11/29/2012 CHEM 14 9736720 CHLORIDE 106 MMOL/L 11/29/2012 CHEM 14 5603185 BILI TOT 0.4 MG/DL 11/29/2012 CHEM 14 1793563 ALK PHOS 86 U/L 11/29/2012 CHEM 14 0116234 SODIUM 141 MMOL/L 11/29/2012 CHEM 14 5659344 CREATININE 0.80 MG/DL 11/29/2012 CHEM 14 9679786 CALCIUM 9.7 MG/DL 11/29/2012 CHEM 14 5406930 POTASSIUM 4.0 MMOL/L 11/29/2012 CHEM 14 7096322 PROT TOT 6.6 GM/DL 11/29/2012 CHEM 14 4846913 GLUCOSE 112 MG/DL 11/29/2012 CHEM 14 7153676 BICARB 29 MMOL/L 11/29/2012 CHEM 14 7014493 ANION GAP 6 MEQ/L 11/29/2012 A1C HPLC 7529850 A1C HPLC 24294-5 5.5 % 11/29/2012 LIPID GRP HDL TEST 54 MG/DL 11/29/2012 LIPID GRP TRIG 77 MG/DL 11/29/2012 LIPID GRP TEST LDL 78 MG/DL 11/29/2012 LIPID GRP CHOL 147 MG/DL 11/29/2012 LIPID GRP RCHOL/HDL 2.72 RATIO 11/29/2012 FREE T4 1989834 FREE T4 1.23 NG/DL 11/29/2012 GFR CALC 2425523 GFR AA >60 ML/MIN 11/29/2012 GFR CALC 5747901 GFR NON-AA >60 ML/MIN 11/29/2012 CHEM 14 2507205 AST 23 U/L 08/07/2012 CHEM 14 3736759 ALT 34 IU/L 08/07/2012 CHEM 14 4757343 BUN 26 MG/DL 08/07/2012 CHEM 14 0746189 ALBUMIN 4.4 GM/DL 08/07/2012 CHEM 14 2827949 CHLORIDE 105 MMOL/L 08/07/2012 CHEM 14 3684314 BILI TOT 0.5 MG/DL 08/07/2012 CHEM 14 0283389 ALK PHOS 79 U/L 08/07/2012 CHEM 14 9413489 SODIUM 140 MMOL/L 08/07/2012 CHEM 14 8855766 CREATININE 0.71 MG/DL 08/07/2012 CHEM 14 2595823 CALCIUM 10.4 MG/DL 08/07/2012 CHEM 14 5009491 POTASSIUM 3.8 MMOL/L 08/07/2012 CHEM 14 2215859 PROT TOT 6.8 GM/DL 08/07/2012 CHEM 14 4323742 GLUCOSE 104 MG/DL 08/07/2012 CHEM 14 0793166 BICARB 27 MMOL/L 08/07/2012 CHEM 14 1824086 ANION GAP 8 MEQ/L 08/07/2012 A1C HPLC 3083649 A1C HPLC 58381-5 5.4 % 08/07/2012 FREE T4 2636674 FREE T4 1.11 NG/DL 08/07/2012 LIPID GRP HDL TEST 50 MG/DL 08/07/2012 LIPID GRP TRIG 127 MG/DL 08/07/2012 LIPID GRP TEST LDL 93 MG/DL 08/07/2012 LIPID GRP CHOL 168 MG/DL 08/07/2012 LIPID GRP RCHOL/HDL 3.36 RATIO 08/07/2012 CBC 6879936 WBC 8.7 10e9/L 08/07/2012 CBC 0383297 RBC 4.67 10e12/L 08/07/2012 CBC 1785569 HGB 14.4 g/dL 08/07/2012 CBC 1406994 HCT DET 42.8 % 08/07/2012 CBC 2328594 MCV 91.6 fL 08/07/2012 CBC 4517256 MCH 30.8 pg 08/07/2012 CBC 6399544 MCHC 33.6 g/dL 08/07/2012 CBC 4377051 PLT 271 10e9/L 08/07/2012 CBC 8189685 MPV 12.3 fL 08/07/2012 CBC 2522197 LARA % 50.6 % 08/07/2012 CBC 5040451 LY % 34.9 % 08/07/2012 CBC 4411849 MON % 9.1 % 08/07/2012 CBC 7423216 EOS % 5.1 % 08/07/2012 CBC 9453963 BASO % 0.3 % 08/07/2012 CBC 8257907 RDW 13.6 % 08/07/2012 CBC 8264622 ABS LARA 4.40 10e9/L 08/07/2012 CBC 9660408 ABS LYMPH 3.04 10e9/L 08/07/2012 CBC 8472116 ABS MONO 0.79 10e9/L 08/07/2012 CBC 5866295 ABS EOS 0.44 10e9/L 08/07/2012 CBC 5645645 ABS BASO 0.03 10e9/L 08/07/2012 CBC 7703710 RDW-SD 44.1 fL 08/07/2012 TSH 9648702 TSH 7.419 uIU/ML 08/07/2012 GFR CALC 4697299 GFR AA >60 ML/MIN 08/07/2012 GFR CALC 1937125 GFR NON-AA >60 ML/MIN 08/07/2012 A1C HPLC 0725716 A1C HPLC 19842-7 5.3 % 02/21/2012 TSH 2780031 TSH 0.832 uIU/ML 02/16/2012 FREE T4 5220388 FREE T4 1.04 NG/DL 02/16/2012 GFR CALC 6968157 GFR AA >60 ML/MIN 02/16/2012 GFR CALC 3639251 GFR NON-AA >60 ML/MIN 02/16/2012 [facility] [place] GLUCOSE 112 MG/DL 02/16/2012 BMP CREATININE 0.65 MG/DL 02/16/2012 BMP BUN 17 MG/DL 02/16/2012 BMP SODIUM 144 MMOL/L 02/16/2012 BMP POTASSIUM 4.0 MMOL/L 02/16/2012 [facility] [place] CHLORIDE 107 MMOL/L 02/16/2012 [facility] [place] BICARB 29 MMOL/L 02/16/2012 [facility] [place] ANION GAP 8 MEQ/L 02/16/2012 BMP CALCIUM 9.5 MG/DL 02/16/2012 CBC 7010492 WBC 7.1 10e9/L 02/16/2012 CBC 2785373 RBC 4.47 10e12/L 02/16/2012 CBC 6359684 HGB 13.5 g/dL 02/16/2012 CBC 9901807 HCT DET 40.7 % 02/16/2012 CBC 4412806 MCV 91.1 fL 02/16/2012 CBC 0559525 MCH 30.2 pg 02/16/2012 CBC 4949904 MCHC 33.2 g/dL 02/16/2012 CBC 4596861 PLT 238 10e9/L 02/16/2012 CBC 3687495 MPV 11.4 fL 02/16/2012 CBC 8334644 LARA % 55.7 % 02/16/2012 CBC 4990733 LY % 29.6 % 02/16/2012 CBC 6337955 MON % 9.2 % 02/16/2012 CBC 5248714 EOS % 5.1 % 02/16/2012 CBC 7648113 BASO % 0.4 % 02/16/2012 CBC 9066812 RDW 13.0 % 02/16/2012 CBC 0792042 ABS LARA 3.95 10e9/L 02/16/2012 CBC 9688982 ABS LYMPH 2.10 10e9/L 02/16/2012 CBC 9722881 ABS MONO 0.65 10e9/L 02/16/2012 CBC 6119796 ABS EOS 0.36 10e9/L 02/16/2012 CBC 1615552 ABS BASO 0.03 10e9/L 02/16/2012 CBC 8435685 RDW-SD 42.4 fL 02/16/2012 URINALYSIS NONAUTO W/O SCOPE 86626 Specific [place] 1.015 DateTime(Free Text in Aprima) URINALYSIS NONAUTO W/O SCOPE 97776 PH 7 DateTime(Free Text in Aprima) URINALYSIS NONAUTO W/O SCOPE 78271 GLUCOSE neg DateTime(Free Text in Aprima) URINALYSIS NONAUTO W/O SCOPE 56018 Protein 1+ DateTime(Free Text in Aprima) URINALYSIS NONAUTO W/O SCOPE 83613 Blood neg DateTime(Free Text in Aprima) URINALYSIS NONAUTO W/O SCOPE 56967 Bilirubin neg DateTime(Free Text in Aprima) URINALYSIS NONAUTO W/O SCOPE 27370 Ketones neg DateTime(Free Text in Aprima) URINALYSIS NONAUTO W/O SCOPE 78767 Urobilinogen neg DateTime(Free Text in Aprima) URINALYSIS NONAUTO W/O SCOPE 07948 Nitrite postive DateTime(Free Text in Aprima) URINALYSIS NONAUTO W/O SCOPE 84915 Leukocytes 3+ DateTime(Free Text in Aprima) URINALYSIS NONAUTO W/O SCOPE 48895 Specific [employer] 1.030 DateTime(Free Text in Aprima) URINALYSIS NONAUTO W/O SCOPE 48751 PH 6 DateTime(Free Text in Aprima) URINALYSIS NONAUTO W/O SCOPE 35432 GLUCOSE neg DateTime(Free Text in Aprima) URINALYSIS NONAUTO W/O SCOPE 64305 Protein neg DateTime(Free Text in Aprima) URINALYSIS NONAUTO W/O SCOPE 62015 Blood neg DateTime(Free Text in Aprima) URINALYSIS NONAUTO W/O SCOPE 88340 Bilirubin neg DateTime(Free Text in Aprima) URINALYSIS NONAUTO W/O SCOPE 93578 Ketones neg DateTime(Free Text in Aprima) URINALYSIS NONAUTO W/O SCOPE 85117 Urobilinogen neg DateTime(Free Text in Aprima) URINALYSIS NONAUTO W/O SCOPE 40799 Nitrite neg DateTime(Free Text in Aprima) URINALYSIS NONAUTO W/O SCOPE 85569 Leukocytes trace DateTime(Free Text in Aprima) URINALYSIS NONAUTO W/O SCOPE 20227 Specific [employer] 1.005 DateTime(Free Text in Aprima) URINALYSIS NONAUTO W/O SCOPE 59709 PH 5 DateTime(Free Text in Aprima) URINALYSIS NONAUTO W/O SCOPE 45489 GLUCOSE neg DateTime(Free Text in Aprima) URINALYSIS NONAUTO W/O SCOPE 81530 Protein neg DateTime(Free Text in Aprima) URINALYSIS NONAUTO W/O SCOPE 43668 Blood neg DateTime(Free Text in Aprima) URINALYSIS NONAUTO W/O SCOPE 62441 Bilirubin neg DateTime(Free Text in Aprima) URINALYSIS NONAUTO W/O SCOPE 98999 Ketones neg DateTime(Free Text in Aprima) URINALYSIS NONAUTO W/O SCOPE 37189 Urobilinogen neg DateTime(Free Text in Aprima) URINALYSIS NONAUTO W/O SCOPE 03617 Nitrite neg DateTime(Free Text in Aprima) URINALYSIS NONAUTO W/O SCOPE 00807 Leukocytes neg DateTime(Free Text in Aprima) UA 68990 Specific [employer] 1.030 DateTime(Free Text in Aprima) UA 76444 PH 5 DateTime(Free Text in Aprima) UA 89559 GLUCOSE neg DateTime(Free Text in Aprima) UA 85317 Protein trace DateTime(Free Text in Aprima) UA 84239 Blood large DateTime(Free Text in Aprima) UA 49669 Bilirubin neg DateTime(Free Text in Aprima) UA 25660 Ketones neg DateTime(Free Text in Aprima) UA 81489 Urobilinogen neg DateTime(Free Text in Aprima) UA 63426 Nitrite neg DateTime(Free Text in Aprima) UA 08917 Leukocytes large DateTime(Free Text in Aprima) Review of Systems System Result Effective Dates Constitutional No recent illness 01/29/2019 Constitutional No [...] Result Effective Dates Notes Full Exam - General 1994 Constitutional general [...] developed 06/05/2014 None Full Exam - General 1995 Constitutional general appearance Overall: in no acute distress 06/05/2014 None Full Exam - General 1995 Constitutional general appearance Overall: well nourished 06/05/2014 [...] tenderness 09/24/2013 None Full Exam - General 1995 Abdomen abdominal exam Overall: normal bowel sounds 09/24/2013 None Full Exam - General 1994 Musculoskeletal gait and station Overall: normal gait 09/24/2013 None Full Exam - General 1995 Musculoskeletal gait and station Overall: normal station 09/24/2013 None Full Exam - General 1995 Neurologic gait Overall: no ataxia, no unsteadiness 09/24/2013 None Full Exam - General 1994 Neurologic cranial nerves Overall: crainial nerves 2 - 12 grossly intact 09/24/2013 None Full Exam - General 1994 Psychiatric mood and affect Overall: normal mood and affect 09/24/2013 None Full Exam - General 1995 Psychiatric [...] masses 06/03/2013 None Full Exam - General 1995 Respiratory auscultation Overall: breath sounds clear bilaterally 06/03/2013 None Full Exam - General 1995 Respiratory respiratory effort/rhythm Overall: no retractions 06/03/2013 None Full Exam - General 1995 Respiratory respiratory effort/rhythm Overall: normal rate 06/03/2013 [...] bulging 06/03/2013 None Full Exam - General 1994 Constitutional general appearance Overall: well nourished 05/07/2013 [...] 05/07/2013 None Full Exam - General 1994 Neurologic gait Overall: no ataxia, no unsteadiness 05/07/2013 None Full Exam - General 1994 Neurologic [...] nourished 12/03/2012 None Full Exam - General 1995 Eyes conjunctiva/eyelids Overall: conjunctiva clear 12/03/2012 None Full Exam - General 1995 Eyes conjunctiva/eyelids Overall: cornea clear 12/03/2012 None Full Exam - General 1995 Eyes conjunctiva/eyelids Overall: eyelids normal 12/03/2012 None [...] murmurs 09/10/2012 None Full Exam - General 1995 Abdomen abdominal exam Overall: no tenderness 09/10/2012 None Full Exam - General 1994 Abdomen abdominal exam Overall: normal bowel sounds 09/10/2012 None Full Exam - General 1994 Lymphatic neck nodes Overall: anterior cervical chain benign 09/10/2012 None Full Exam - General 1995 Lymphatic neck nodes Overall: posterior cervical chain [...] 1995 Ears/Nose/Throat oral cavity/pharynx/larynx Overall: no masses 08/08/2012 [...] appearance 02/15/2012 None Full Exam - General 1995 Ears/Nose/Throat external ear Overall: normal mastoids 02/15/2012 [...] clear 11/10/2011 None Full Exam - General 1995 Ears/Nose/Throat oral cavity/pharynx/larynx Overall: oral mucosa clear 11/10/2011 None Full Exam - General 1994 Ears/Nose/Throat oral cavity/pharynx/larynx Overall: oropharyngeal mucosa clear 11/10/2011 None Full Exam - General 1995 Ears/Nose/Throat oral cavity/pharynx/larynx Overall: no masses 11/10/2011 [...] edema 04/25/2011 None Procedures Procedure Codes Date URINALYSIS NONAUTO W/O SCOPE CPT-4: 69541 07/10/2018 TRIAMCINOLONE ACET INJ NOS CPT-4: J3301 05/28/2018 ROCEPHIN, PER 250 MG CPT- 4: J0696 05/28/2018 ROCEPHIN, PER 250 MG CPT- 4: J0696 01/19/2018 TRIAMCINOLONE ACET INJ NOS CPT-4: J3301 01/19/2018 PPPS, SUBSEQ VISIT CPT- 4: G0439 11/23/2017 TRIAMCINOLONE ACET INJ NOS CPT-4: J3301 06/27/2017 THER/PROPH/DIAG INJ SC/IM CPT-4: 61672 04/20/2017 TRIAMCINOLONE ACET INJ NOS CPT-4: J3301 04/20/2017 TRIAMCINOLONE ACET INJ NOS CPT-4: J3301 03/14/2017 ROCEPHIN, PER 250 MG CPT- 4: J0696 03/14/2017 DESTRUCT PREMALG LESION CPT-4: 95902 12/05/2016 DESTRUCT PREMALG LES 2-14 CPT-4: 25426 12/05/2016 URINALYSIS NONAUTO W/O SCOPE CPT-4: 89376 11/28/2016 ROCEPHIN, PER 250 MG CPT- 4: J0696 11/28/2016 PPPS, SUBSEQ VISIT CPT- 4: G0439 11/07/2016 THER/PROPH/DIAG INJ SC/IM CPT-4: 84641 11/07/2016 TRIAMCINOLONE ACET INJ NOS CPT-4: J3301 11/07/2016 ROCEPHIN, PER 250 MG CPT- 4: J0696 11/07/2016 THER/PROPH/DIAG INJ SC/IM CPT-4: 09365 08/15/2016 TRIAMCINOLONE ACET INJ NOS CPT-4: J3301 08/15/2016 ROCEPHIN, PER 250 MG CPT- 4: J0696 08/15/2016 URINALYSIS NONAUTO W/O SCOPE CPT-4: 44450 05/05/2016 ROCEPHIN, PER 250 MG CPT- 4: J0696 12/07/2015 TRIAMCINOLONE ACET INJ NOS CPT-4: J3301 11/24/2015 ROCEPHIN, PER 250 MG CPT- 4: J0696 11/24/2015 THER/PROPH/DIAG INJ SC/IM CPT-4: 16064 11/24/2015 THER/PROPH/DIAG INJ SC/IM CPT-4: 55757 08/27/2015 KETOROLAC TROMETHAMINE INJ CPT-4: J1885 08/27/2015 PROMETHAZINE HCL INJECTION CPT-4: J2550 08/27/2015 THER/PROPH/DIAG INJ SC/IM CPT-4: 93331 08/10/2015 TRIAMCINOLONE ACET INJ NOS CPT-4: J3301 08/10/2015 ROCEPHIN, PER 250 MG CPT- 4: J0696 08/10/2015 C WOUN RTS (CULTURE OTHR SPECIMN AEROBIC) CPT-4: 04491 07/28/2015 THER/PROPH/DIAG INJ SC/IM CPT-4: 51219 03/19/2015 TRIAMCINOLONE ACET INJ NOS CPT-4: J3301 03/19/2015 ROCEPHIN, PER 250 MG CPT- 4: J0696 06/23/2014 TRIAMCINOLONE ACET INJ NOS CPT-4: J3301 06/23/2014 INJ TRIGGER POINT 1/2 MUSCL CPT-4: 58546 06/05/2014 URINALYSIS NONAUTO W/O SCOPE CPT-4: 14802 02/11/2014 URINALYSIS NONAUTO W/O SCOPE CPT-4: 29767 10/15/2013 ROCEPHIN, PER 250 MG CPT- 4: J0696 09/24/2013 THER/PROPH/DIAG INJ SC/IM CPT-4: 62684 09/19/2013 ROCEPHIN, PER 250 MG CPT- 4: J0696 09/19/2013 PRESCRIP TRANSMIT VIA ERX SY CPT-4: G8553 08/05/2013 ROCEPHIN, PER 250 MG CPT- 4: J0696 07/10/2013 THER/PROPH/DIAG INJ SC/IM CPT-4: 63561 07/10/2013 TRIAMCINOLONE ACET INJ NOS CPT-4: J3301 07/10/2013 PRESCRIP TRANSMIT VIA ERX SY CPT-4: G8553 07/10/2013 [id number] EST. PATIENT, LEVEL III CPT-4: 40868 06/03/2013 PRESCRIP TRANSMIT VIA ERX SY CPT-4: G8553 06/03/2013 PRESCRIP TRANSMIT VIA ERX SY CPT-4: G8553 05/07/2013 ROUTINE VENIPUNCTURE CPT- 4: 15584 04/30/2013 ROUTINE VENIPUNCTURE CPT- 4: 61070 11/29/2012 TRIAMCINOLONE ACET INJ NOS CPT-4: J3301 09/24/2012 THER/PROPH/DIAG INJ SC/IM CPT-4: 92083 09/24/2012 URINALYSIS NONAUTO W/O SCOPE CPT-4: 82869 09/24/2012 PRESCRIP TRANSMIT VIA ERX SY CPT-4: G8553 09/24/2012 PRESCRIP TRANSMIT VIA ERX SY CPT-4: G8553 09/10/2012 PRESCRIP TRANSMIT VIA ERX SY CPT-4: G8553 08/08/2012 ROUTINE VENIPUNCTURE CPT- 4: 61506 08/07/2012 ROUTINE VENIPUNCTURE CPT- 4: 38050 02/16/2012 URINALYSIS NONAUTO W/O SCOPE CPT-4: 82028 02/15/2012 ROCEPHIN, PER 250 MG CPT- 4: J0696 02/15/2012 PRESCRIP TRANSMIT VIA ERX SY CPT-4: G8553 02/15/2012 ROUTINE VENIPUNCTURE CPT- 4: 47384 11/08/2011 ROCEPHIN, PER 250 MG CPT- 4: J0696 07/14/2011 THER/PROPH/DIAG INJ SC/IM CPT-4: 57780 07/14/2011 Influenza Virus Vaccine, Split Virus, >3 Yrs, IM CPT-4: 11563 05/23/2011 IMMUNIZATION ADMIN CPT- 4: 93251 05/23/2011 THER/PROPH/DIAG INJ SC/IM CPT-4: 01855 05/03/2011 ROCEPHIN, PER 250 MG CPT- 4: J0696 05/03/2011 TRIAMCINOLONE ACET INJ NOS CPT-4: J3301 05/03/2011 Vital Signs Date Vital 01/29/2019 Blood Pressure 1: 138/88 Code: 8480-6 BMI: 31.9 Code: 68022-4 Heart Rate 1: 74 bpm Height: 4'11" SpO2: 94% Weight: 158 lbs 11/27/2018 Blood Pressure 1: 144/82 Code: 8480-6 Heart Rate 1: 67 bpm SpO2: 93% 11/16/2018 Blood Pressure 1: 168/100 Code: 8480-6 Heart Rate 1: 74 bpm SpO2: 96% 11/13/2018 Blood Pressure 1: 184/98 Code: 8480-6 BMI: 32.1 Code: 17691-2 Heart Rate 1: 68 bpm Height: 4'11" SpO2: 96% Weight: 159 lbs 10/30/2018 Blood Pressure 1: 158/98 Code: 8480-6 BMI: 31.7 Code: 45638-1 Heart Rate 1: 80 bpm Height: 4'11" SpO2: 96% Weight: 157 lbs 10/08/2018 Blood Pressure 1: 140/80 Code: 8480-6 BMI: 32.1 Code: 26611-7 Heart Rate 1: 92 bpm Height: 4'11" SpO2: 103% Weight: 159 lbs 07/16/2018 Blood Pressure 1: 142/80 Code: 8480-6 BMI: 31.1 Code: 63320-0 Heart Rate 1: 78 bpm Height: 4'11" SpO2: 98% Weight: 154 lbs 07/10/2018 Blood Pressure 1: 156/82 Code: 8480-6 BMI: 31.1 Code: 04923-4 Heart Rate 1: 63 bpm Height: 4'11" SpO2: 99% Weight: 154 lbs 05/28/2018 Blood Pressure 1: 142/80 Code: 8480-6 Heart Rate 1: 82 bpm Height: SpO2: 97% Temperature: 35.9 (C) / 96.6 (F) Weight: 02/07/2018 Height: Weight: 01/19/2018 Blood Pressure 1: 128/76 Code: 8480-6 BMI: 31.2 Code: 35331-3 Heart Rate 1: 71 bpm Height: 4'11" SpO2: 96% Temperature: 36.5 (C) / 97.7 (F) Weight: 154 lbs 8 oz 11/23/2017 Blood Pressure 1: 146/80 Code: 8480-6 BMI: 31.7 Code: 46815-4 Heart Rate 1: 64 bpm Height: 4'11" SpO2: 97% Waist Measure (cm): 89 cm Weight: 157 lbs 09/12/2017 Blood Pressure 1: 140/86 Code: 8480-6 Heart Rate 1: 62 bpm SpO2: 96% Temperature: 36.6 (C) / 97.8 (F) Weight: 153 lbs 07/25/2017 Blood Pressure 1: 140/72 Code: 8480-6 BMI: 31.3 Code: 20874-7 Heart Rate 1: 76 bpm Height: 4'11" SpO2: 97% Temperature: 37.2 (C) / 99.0 (F) Weight: 155 lbs 06/27/2017 Blood Pressure 1: 144/84 Code: 8480-6 BMI: 31.1 Code: 82655-4 Heart Rate 1: 63 bpm Height: 4'11" SpO2: 99% Temperature: 36.4 (C) / 97.6 (F) Weight: 154 lbs 05/08/2017 Blood Pressure 1: 142/86 Code: 8480-6 BMI: 30.9 Code: 12216-1 Height: 4'11" Temperature: 36.3 (C) / 97.4 (F) Weight: 153 lbs 03/14/2017 Blood Pressure 1: 146/82 Code: 8480-6 BMI: 30.9 Code: 06732-3 Heart Rate 1: 64 bpm Height: 4'11" SpO2: 94% Weight: 153 lbs 02/20/2017 Blood Pressure 1: 142/80 Code: 8480-6 BMI: 30.9 Code: 37990-9 Heart Rate 1: 75 bpm Height: 4'11" SpO2: 97% Weight: 153 lbs 02/06/2017 Blood Pressure 1: 138/90 Code: 8480-6 BMI: 31.5 Code: 28229-7 Heart Rate 1: 61 bpm Height: 4'11" SpO2: 98% Weight: 156 lbs 12/05/2016 Blood Pressure 1: 122/72 Code: 8480-6 Heart Rate 1: 59 bpm Height: 4'11" SpO2: 98% Weight: 11/28/2016 Blood Pressure 1: 154/86 Code: 8480-6 BMI: 31.3 Code: 87846-2 Heart Rate 1: 64 bpm Height: 4'11" SpO2: 94% Temperature: 36.2 (C) / 97.2 (F) Weight: 155 lbs 11/07/2016 Blood Pressure 1: 128/64 Code: 8480-6 BMI: 31.5 Code: 64235-4 Heart Rate 1: 59 bpm Height: 4'11" SpO2: 97% Weight: 156 lbs 08/15/2016 Blood Pressure 1: 110/62 Code: 8480-6 BMI: 31.5 Code: 94213-3 Heart Rate 1: 76 bpm Height: 4'11" SpO2: 97% Weight: 156 lbs 06/07/2016 Blood Pressure 1: 120/80 Code: 8480-6 BMI: 32.9 Code: 84189-2 Heart Rate 1: 63 bpm Height: 4'11" SpO2: 93% Temperature: 36.5 (C) / 97.7 (F) Weight: 163 lbs 03/15/2016 Blood Pressure 1: 90/42 Code: 8480-6 Heart Rate 1: 65 bpm SpO2: 94% 03/14/2016 Blood Pressure 1: 188/110 Code: 8480-6 Heart Rate 1: 68 bpm SpO2: 96% 02/22/2016 Blood Pressure 1: 158/80 Code: 8480-6 BMI: 32.7 Code: 57762-5 Heart Rate 1: 71 bpm Height: 4'11" SpO2: 95% Weight: 162 lbs 12/07/2015 Blood Pressure 1: 140/88 Code: 8480-6 BMI: 32.9 Code: 54993-7 Heart Rate 1: 99 bpm Height: 4'11" SpO2: 94% Temperature: 35.9 (C) / 96.6 (F) Weight: 163 lbs 11/24/2015 Blood Pressure 1: 144/78 Code: 8480-6 BMI: 33.7 Code: 62876-5 Heart Rate 1: 60 bpm Height: 4'11" SpO2: 98% Temperature: 36.6 (C) / 97.9 (F) Weight: 167 lbs 08/27/2015 Blood Pressure 1: 164/82 Code: 8480-6 BMI: 32.3 Code: 18574-3 Heart Rate 1: 60 bpm Height: 4'11" SpO2: 93% Weight: 160 lbs 08/10/2015 Blood Pressure 1: 130/60 Code: 8480-6 BMI: 32.5 Code: 02665-7 Heart Rate 1: 64 bpm Height: 4'11" SpO2: 97% Weight: 161 lbs 07/28/2015 Blood Pressure 1: 124/68 Code: 8480-6 BMI: 32.5 Code: 41165-1 Heart Rate 1: 69 bpm Height: 4'11" SpO2: 97% Weight: 161 lbs 06/11/2015 Blood Pressure 1: 148/80 Code: 8480-6 BMI: 32.9 Code: 50348-1 Heart Rate 1: 70 bpm Height: 4'11" SpO2: 94% Weight: 163 lbs 03/19/2015 Blood Pressure 1: 150/102 Code: 8480-6 Blood Pressure 2: 152/92 Code: 8480-6 BMI: 32.5 Code: 85780-6 Heart Rate 1: 71 bpm Height: 4'11" SpO2: 96% Weight: 161 lbs 01/07/2015 Blood Pressure 1: 126/84 Code: 8480-6 Heart Rate 1: 80 bpm Height: 4'11" 09/23/2014 Blood Pressure 1: 112/72 Code: 8480-6 BMI: 33.9 Code: 57207-8 Heart Rate 1: 72 bpm Height: 4'11" Weight: 168 lbs 08/05/2014 Blood Pressure 1: 140/86 Code: 8480-6 BMI: 33.3 Code: 16741-6 Height: 4'11" Weight: 165 lbs 06/23/2014 Blood Pressure 1: 132/70 Code: 8480-6 BMI: 32.9 Code: 46200-4 Heart Rate 1: 58 bpm Height: 4'11" Temperature: 36.0 (C) / 96.8 (F) Weight: 163 lbs 06/05/2014 Blood Pressure 1: 121/85 Code: 8480-6 BMI: 34.3 Code: 76789-5 Height: 4'11" Weight: 170 lbs 04/03/2014 Blood Pressure 1: 128/80 Code: 8480-6 Heart Rate 1: 88 bpm Weight: 167 lbs 03/07/2014 Blood Pressure 1: 122/82 Code: 8480-6 BMI: 33.9 Code: 03245-8 Heart Rate 1: 68 bpm Height: 4'11" Weight: 168 lbs 11/21/2013 Blood Pressure 1: 100/58 Code: 8480-6 BMI: 33.7 Code: 02184-7 Heart Rate 1: 64 bpm Height: 4'11" Weight: 167 lbs 09/24/2013 Blood Pressure 1: 148/88 Code: 8480-6 Heart Rate 1: 68 bpm Weight: 09/19/2013 Blood Pressure 1: 120/80 Code: 8480-6 BMI: 33.9 Code: 95952-7 Heart Rate 1: 80 bpm Height: 4'11" Temperature: 36.9 (C) / 98.5 (F) Weight: 168 lbs 08/05/2013 Blood Pressure 1: 128/80 Code: 8480-6 BMI: 34.3 Code: 08624-8 Heart Rate 1: 64 bpm Height: 4'11" Temperature: 36.2 (C) / 97.2 (F) Weight: 170 lbs 07/10/2013 Blood Pressure 1: 120/84 Code: 8480-6 BMI: 36.0 Code: 50533-2 Heart Rate 1: 90 bpm Height: 4'11" SpO2: 97% Temperature: 36.8 (C) / 98.2 (F) Weight: 178 lbs 06/03/2013 Blood Pressure 1: 136/94 Code: 8480-6 BMI: 34.7 Code: 49146-3 Heart Rate 1: 68 bpm Height: 4'11" Temperature: 36.7 (C) / 98.0 (F) Weight: 172 lbs 05/13/2013 Blood Pressure 1: 132/90 Code: 8480-6 Heart Rate 1: 68 bpm 05/07/2013 Blood Pressure 1: 168/100 Code: 8480-6 BMI: 34.3 Code: 44548-6 Heart Rate 1: 76 bpm Height: 4'11" Weight: 170 lbs 12/03/2012 Blood Pressure 1: 142/78 Code: 8480-6 BMI: 33.5 Code: 87440-1 Heart Rate 1: 76 bpm Height: 4'11" Weight: 166 lbs 09/24/2012 Blood Pressure 1: 116/70 Code: 8480-6 Heart Rate 1: 68 bpm Respiratory Rate: 16 bpm Temperature: 36.9 (C) / 98.4 (F) Weight: 162 lbs 09/10/2012 Blood Pressure 1: 116/80 Code: 8480-6 BMI: 33.7 Code: 41200-0 Heart Rate 1: 76 bpm Height: 4'11" [...] 1: 149/85 Code: 8480-6 BMI: 32.9 Code: 37961-2 Heart Rate 1: 79 bpm Height: 4'11" Weight: 164 lbs 05/03/2011 Blood Pressure 1: 122/79 Code: 8480-6 BMI: 30.8 Code: 60805-2 Heart Rate 1: 72 bpm Height: 5'1" Weight: 163 lbs 04/25/2011 Blood Pressure 1: 137/84 Code: 8480-6 BMI: 31.0 Code: 34327-8 Heart Rate 1: 63 bpm Height: 5'1" Respiratory Rate: 20 bpm Weight: 164 lbs Functional Status No Functional Status data History of Present Illness Symptom Name Status Result Effective Date Notes Quality intermittent 01/29/2019 None Quality loose 01/29/2019 [...] None chest congestion Triggers ill contacts 01/19/2018 kiian have strep chest congestion Pertinent Findings cough [...] days ago 02/15/2012 while visiting mother in [place] had uti and was put on pyridum [...] surg in december. then took trip to [facility] to see mother and has had swelling [...] Quality chronic 08/01/2011 states went shopping on [employer] over night without taking any of medications [...] data Encounters Encounter Performer Location Codes Date () 22883 EST. PATIENT, LEVEL III Diagnosis: Functional diarrhea[ICD10: K59.1] Melba Goldman MD, [facility] CPT- 4: 73555 01/29/2019 ([id number]) Miscellaneous no charge Diagnosis: Essential (primary) hypertension[ICD10: I10] Melba Goldman MD, [facility] CPT-4: 72959 11/16/2018 ([id number]) 64180 EST. PATIENT, LEVEL III Diagnosis: Essential (primary) hypertension[ICD10: I10] Shahida Goldman MD, [facility] CPT-4: 42662 11/13/[id number]) 15953 EST. PATIENT, LEVEL IV Diagnosis: Essential (primary) hypertension[ICD10: I10] Diagnosis: Mixed hyperlipidemia[ICD10: E78.2] Diagnosis: Hypothyroidism, unspecified[ICD10: E03.9] Shahida Goldman MD, [facility] CPT-4: 48220 10/30/2018 83809 EST. PATIENT, LEVEL III Diagnosis: Other mucopurulent conjunctivitis, bilateral[ICD10: H10.023] Diagnosis: Other allergic rhinitis[ICD10: J30.89] Shahida Goldman MD, [facility] CPT-4: 39515 10/08/2018 92566 EST. PATIENT, LEVEL III Diagnosis: Essential (primary) hypertension[ICD10: I10] Diagnosis: Generalized anxiety disorder[ICD10: F41.1] Isabelle Goldman MD, [facility] CPT-4: 77764 07/16/2018 ([id number]) 10170 EST. PATIENT, LEVEL III Diagnosis: Acute recurrent maxillary sinusitis[ICD10: J01.01] Diagnosis: Frequency of micturition[ICD10: R35.0] Diagnosis: Low back pain[ICD10: M54.5] Shahida Goldman MD, [facility] CPT-4: 13498 07/10/2018 ([id number]) 73784 EST. PATIENT, LEVEL III Diagnosis: Acute recurrent maxillary sinusitis[ICD10: J01.01] Shahida Goldman MD, [facility] CPT-4: 46410 05/28/2018 ([id number]) Miscellaneous no charge Diagnosis: Laceration without foreign body, left lower leg, subsequent encounter[ICD10: S81.812D] Diagnosis: Laceration without foreign body, right lower leg, subsequent encounter[ICD10: S81.811D] Isabelle Goldman MD, [facility] CPT-4: 33977 02/08/2018 96256 EST. PATIENT, LEVEL III Diagnosis: Cellulitis of left lower limb[ICD10: L03.116] Diagnosis: Cellulitis of right lower limb[ICD10: L03.115] Diagnosis: Laceration without foreign body, left lower leg, initial encounter[ICD10: S81.812A] Diagnosis: Laceration without foreign body, right lower leg, initial encounter[ICD10: S81.811A] Isabelle Goldman MD, [facility] CPT-4: 21831 02/07/2018 ([id number]) 48691 EST. PATIENT, LEVEL IV Diagnosis: Primary generalized (osteo)arthritis[ICD10: M15.0] Diagnosis: Acute recurrent maxillary sinusitis[ICD10: J01.01] Diagnosis: Low back pain[ICD10: M54.5] Diagnosis: Other allergic rhinitis[ICD10: J30.89] Diagnosis: Obstructive sleep apnea (adult) (pediatric)[ICD10: G47.33] Shahida Goldman MD, [facility] CPT-4: 84983 01/19/2018 88272 EST. PATIENT, LEVEL IV Diagnosis: Diarrhea, unspecified[ICD10: R19.7] Diagnosis: Generalized abdominal pain[ICD10: R10.84] Diagnosis: Other allergic rhinitis[ICD10: J30.89] Diagnosis: Other acute sinusitis[ICD10: J01.80] Isabelle Goldman MD, [facility] CPT- 4: 55987 09/12/2017 38324 EST. PATIENT, LEVEL III Diagnosis: Acute laryngopharyngitis[ICD10: J06.0] Diagnosis: Other allergic rhinitis[ICD10: J30.89] Diagnosis: Cough[ICD10: R05] Diagnosis: Wheezing[ICD10: R06.2] Isabelle Goldman MD, [facility] CPT-4: 02332 07/25/2017 ([id number]) 90837 EST. PATIENT, LEVEL IV Diagnosis: Acute recurrent maxillary sinusitis[ICD10: J01.01] Diagnosis: Cervicalgia[ICD10: M54.2] Diagnosis: Diarrhea, unspecified[ICD10: R19.7] Shahida Goldman MD, [facility] CPT-4: 57436 06/27/2017 ([id number]) 93274 EST. PATIENT, LEVEL III Diagnosis: Chronic maxillary sinusitis[ICD10: J32.0] Diagnosis: Gastro-esophageal reflux disease without esophagitis[ICD10: K21.9] Shahida Goldman MD, [facility] CPT-4: 34100 05/08/2017 ([id number]) 02550 EST. PATIENT, LEVEL III Diagnosis: Acute recurrent maxillary sinusitis[ICD10: J01.01] Shahida Goldman MD, [facility] CPT-4: 20763 03/14/2017 93119 EST. PATIENT, LEVEL IV Diagnosis: Epigastric pain[ICD10: R10.13] Diagnosis: Left upper quadrant pain[ICD10: R10.12] Diagnosis: Left lower quadrant pain[ICD10: R10.32] Isabelle Goldman MD, [facility] CPT-4: 88119 02/20/2017 ([id number]) 90725 EST. PATIENT, LEVEL IV Diagnosis: Generalized anxiety disorder[ICD10: F41.1] Diagnosis: Major depressive disorder, recurrent, moderate[ICD10: F33.1] Diagnosis: Left upper quadrant pain[ICD10: R10.12] Diagnosis: Epigastric pain[ICD10: R10.13] Diagnosis: Actinic keratosis[ICD10: L57.0] Melba Goldman MD, [facility] CPT-4: 54921 02/06/2017 ([id number]) 21483 EST. PATIENT, LEVEL III Diagnosis: Actinic keratosis[ICD10: L57.0] Diagnosis: Major depressive disorder, recurrent, moderate[ICD10: F33.1] Melba Goldman MD, [facility] CPT-4: 23385 12/05/2016 ([id number]) 12547 EST. PATIENT, LEVEL III Diagnosis: Acute recurrent maxillary sinusitis[ICD10: J01.01] Diagnosis: Dysuria[ICD10: R30.0] Shahida Goldman MD, [facility] CPT-4: 36918 11/28/2016 61724 EST. PATIENT, LEVEL IV Diagnosis: Other acute sinusitis[ICD10: J01.80] Diagnosis: Acute laryngopharyngitis[ICD10: J06.0] Diagnosis: Other allergic rhinitis[ICD10: J30.89] Isabelle Goldman MD, [facility] CPT- 4: 89111 08/15/2016 ([id number]) 95221 EST. PATIENT, LEVEL III Diagnosis: Acute recurrent maxillary sinusitis[ICD10: J01.01] Diagnosis: Low back pain[ICD10: M54.5] Shahida Goldman MD, [facility] CPT-4: 12005 06/07/2016 ([id number]) Miscellaneous no charge Diagnosis: Essential (primary) hypertension[ICD10: I10] Shahida Goldman MD, [facility] CPT-4: 58842 03/15/2016 53374 EST. PATIENT, LEVEL IV Diagnosis: Essential (primary) hypertension[ICD10: I10] Diagnosis: Headache[ICD10: R51] Diagnosis: Generalized anxiety disorder[ICD10: F41.1] Shahida Goldman MD, [facility] CPT-4: 59324 03/14/2016 26714 EST. PATIENT, LEVEL III Diagnosis: Laceration without foreign body, left lower leg, initial encounter[ICD10: S81.812A] Isabelle Goldman MD, [facility] CPT-4: 28223 02/22/2016 ([id number]) 93056 EST. PATIENT, LEVEL III Diagnosis: Acute recurrent maxillary sinusitis[ICD10: J01.01] Diagnosis: Cough[ICD10: R05] Diagnosis: Allergic rhinitis due to pollen[ICD10: J30.1] Shahida Goldman MD, [facility] CPT-4: 70135 12/07/2015 ([id number]) 72982 EST. PATIENT, LEVEL IV Diagnosis: Essential (primary) hypertension[ICD10: I10] Diagnosis: Acute recurrent maxillary sinusitis[ICD10: J01.01] Diagnosis: Generalized anxiety disorder[ICD10: F41.1] Diagnosis: Cervicalgia[ICD10: M54.2] Diagnosis: Generalized intra-abdominal and pelvic swelling, mass and lump[ICD10: R19.07] Melba Goldman MD, [facility] CPT-4: 77377 11/24/2015 26206 EST. PATIENT, LEVEL III Diagnosis: Other migraine, intractable, without status migrainosus[ICD10: G43.819] Isabelle Goldman MD, [facility] CPT-4: 90322 08/27/2015 15481 EST. PATIENT, LEVEL III Diagnosis: Acute recurrent maxillary sinusitis[ICD10: J01.01] Diagnosis: Candidal stomatitis[ICD10: B37.0] Diagnosis: Acute laryngopharyngitis[ICD10: J06.0] Isabelle Goldman MD, [facility] CPT- 4: 56339 08/10/2015 60906 EST. PATIENT, LEVEL III Diagnosis: Superficial foreign body of left hand, initial encounter[ICD10: S60.552A] Melba Goldman MD, [facility] CPT-4: 54574 07/28/2015 ([id number]) 31640 EST. PATIENT, LEVEL III Diagnosis: Essential (primary) hypertension[ICD10: I10] Diagnosis: Tinea cruris[ICD10: B35.6] Diagnosis: Abnormal levels of other serum enzymes[ICD10: R74.8] Shahida Goldman MD, [facility] CPT-4: 24288 06/11/2015 ([id number]) 72913 EST. PATIENT, LEVEL IV Diagnosis: ESSENTIAL HYPERTENSION[ICD9: 401.9] Diagnosis: Hypothyroid[ICD9: 244.9] Diagnosis: ALLERGIC RHINITIS[ICD9: 477.9] Diagnosis: Anxiety[ICD9: 300.00] Diagnosis: Sleep apnea[ICD9: 780.57] Shahida Goldman MD, [facility] CPT-4: 35934 03/19/2015 ([id number]) 07992 EST. PATIENT, LEVEL III Diagnosis: ACUTE SINUSITIS[ICD9: 461.9] Celi Goldman MD, [facility] CPT-4: 81455 01/07/2015 ([id number]) 44288 EST. PATIENT, LEVEL III Diagnosis: Conjunctivitis[ICD9: 372.30] Shahida Goldman MD, [facility] CPT-4: 29834 09/23/2014 19204 EST. PATIENT, LEVEL II Diagnosis: Noninfected skin tear of leg[ICD9: 891.0] Shahida Goldman MD, [facility] CPT-4: 18527 08/05/2014 ([id number]) 63517 EST. PATIENT, LEVEL III Diagnosis: Chronic maxillary sinusitis[ICD9: 473.0] Shahida Goldman MD, [facility] CPT-4: 05639 06/23/2014 27265 EST. PATIENT, LEVEL II Diagnosis: Headache[ICD9: 784.0] Shahida Goldman MD, [facility] CPT-4: 34830 06/05/2014 ([id number]) 63116 EST. PATIENT, LEVEL III Diagnosis: Abrasion of right leg[ICD9: 916.0] Diagnosis: Headache[ICD9: 784.0] Diagnosis: ALLERGIC RHINITIS[ICD9: 477.9] Shahida Goldman MD, [facility] CPT-4: 90568 04/03/2014 72147 EST. PATIENT, LEVEL II Diagnosis: Tinea corporis[ICD9: 110.5] Diagnosis: Exposure to scabies[ICD9: V01.89] Shahida Goldman MD, [facility] CPT- 4: 52610 03/07/2014 ([id number]) 13386 EST. PATIENT, LEVEL III Diagnosis: ESSENTIAL HYPERTENSION[SNOMED: [id number]] Diagnosis: OSTEOARTH NOS-UNSPEC[ICD9: 715.90] Diagnosis: Lumbago[ICD9: 724.2] Diagnosis: Cervicalgia[ICD9: 723.1] Shahida Goldman MD, [facility] CPT-4: 47357 11/21/2013 ([id number]) 19939 EST. PATIENT, LEVEL III Diagnosis: DEPRESSIVE DISORDER NEC[ICD9: 311] Diagnosis: Paronychia[ICD9: 681.9] Melba Goldman MD, [facility] CPT-4: 87422 09/24/2013 ([id number]) 71773 EST. PATIENT, LEVEL III Diagnosis: Paronychia[ICD9: 681.9] Diagnosis: Cellulitis[ICD9: 682.9] Melba Goldman MD, [facility] CPT-4: 41048 09/19/2013 ([id number]) 51796 EST. PATIENT, LEVEL III Diagnosis: Conjunctivitis[ICD9: 372.30] Diagnosis: Thrush[ICD9: 112.0] Shahida Goldman MD, [facility] CPT-4: 14628 08/05/2013 ([id number]) 47638 EST. PATIENT, LEVEL III Diagnosis: ACUTE MAXILLARY SINUSITIS[ICD9: 461.0] Diagnosis: COUGH[ICD9: 786.2] Diagnosis: Insomnia[ICD9: 780.52] Diagnosis: ESOPHAGEAL REFLUX[ICD9: 530.81] Melba Goldman MD, [facility] CPT-4: 44499 07/10/2013 ([id number]) Miscellaneous no charge Diagnosis: ESSENTIAL HYPERTENSION[SNOMED: 90039783] Melba Goldman MD, [facility] CPT-4: 10480 05/13/2013 ([id number]) 98546 EST. PATIENT, LEVEL IV Diagnosis: ESSENTIAL HYPERTENSION[SNOMED: 13089122] Diagnosis: HYPOTHYROIDISM[ICD9: 244.9] Diagnosis: OSTEOARTH NOS-UNSPEC[ICD9: 715.90] Melba Goldman MD, [facility] CPT- 4: 60656 05/07/2013 ([id number]) 31558 EST. PATIENT, LEVEL IV Diagnosis: Osteoarthritis[ICD9: 715.90] Diagnosis: Knee pain, bilateral[ICD9: 719.46] Diagnosis: Hip pain[ICD9: 719.45] Melba Goldman MD [facility] CPT-4: 56849 12/03/2012 ([id number]) 09902 EST. PATIENT, LEVEL III Diagnosis: Thrush[ICD9: 112.0] Melba Goldman MD [facility] CPT-4: 64545 09/24/2012 ([id number]) 99078 EST. PATIENT, LEVEL IV Diagnosis: ESSENTIAL HYPERTENSION[SNOMED: 40718712] Diagnosis: Thrush[ICD9: 112.0] Diagnosis: Sleep apnea[ICD9: 780.57] Melba Goldman MD [facility] CPT-4: 06690 09/10/2012 ([id number]) 04490 EST. PATIENT, LEVEL IV Diagnosis: Esophageal reflux[ICD9: 530.81] Diagnosis: Hypothyroid[ICD9: 244.9] Diagnosis: JOINT PAIN-MULT JOINTS[ICD9: 719.49] Diagnosis: ALLERGIC RHINITIS[ICD9: 477.9] Melba Goldman MD, [facility] CPT-4: 31185 08/08/2012 ([id number]) 04625 EST. PATIENT, LEVEL IV Diagnosis: Urinary frequency[ICD9: 788.41] Diagnosis: EDEMA[ICD9: 782.3] Diagnosis: HYPOTHYROIDISM[ICD9: 244.9] Diagnosis: Fatigue[ICD9: 780.79] Melba Goldman MD [facility] CPT-4: 53132 02/15/2012 ([id number]) 82765 EST. PATIENT, LEVEL IV Diagnosis: Abdominal pain[ICD9: 789.00] Diagnosis: Fatigue[ICD9: 780.79] Diagnosis: Nausea[ICD9: 787.02] Melba Goldman MD [facility] CPT-4: 04177 11/10/2011 [id number] EST. PATIENT, LEVEL IV Diagnosis: ESSENTIAL HYPERTENSION[SNOMED: 72630829] Diagnosis: DIARRHEA[ICD9: 787.91] Diagnosis: DEPRESSIVE DISORDER NEC[ICD9: 311] Diagnosis: Irritable bowel disease[ICD9: 564.1] Melba Goldman MD, [facility] CPT- 4: 23086 08/01/2011 01959 EST. PATIENT, LEVEL III Diagnosis: ACUTE SINUSITIS[ICD9: 461.9] Diagnosis: Cough[ICD9: 786.2] Shahida Goldman MD, [facility] CPT-4: 57892 07/14/2011 83576 EST. PATIENT, LEVEL IV Diagnosis: VACCIN FOR INFLUENZA[ICD9: V04.81] Diagnosis: ESSENTIAL HYPERTENSION[SNOMED: 77595552] Diagnosis: GENERALIZED ANXIETY DISEASE[ICD9: 300.02] Diagnosis: SLEEP DISTURBANCES[ICD9: 780.50] Shahida Goldman MD, [facility] CPT- 4: 43046 05/23/2011 97225 EST. PATIENT, LEVEL III Diagnosis: ACUTE SINUSITIS[ICD9: 461.9] Diagnosis: ALLERGIC RHINITIS[ICD9: 477.9] Diagnosis: Cough[ICD9: 786.2] Shahida Goldman MD, [facility] CPT-4: 17237 05/03/2011 [id number] EST. PATIENT, LEVEL IV Diagnosis: ESSENTIAL HYPERTENSION[SNOMED: 98517052] Diagnosis: DEPRESSIVE DISORDER NEC[ICD9: 311] Diagnosis: Fatigue[ICD9: 780.79] Shahida Goldman MD, [facility] CPT-4: 19369 04/25/2011 Plan of Care Planned Activity Notes Codes Status Date Appointment: Isabelle Orozco WPtel: [address] [place], [place] [phone] (15 min) Moderate 02/20/2019 Visit Plan: Diarrhea - hold the [...] good probiotic. 01/29/2019 Appointment: Melba Goldman WPtel: [address] [place], [place] [phone] [place] (15 min) Moderate 01/29/2019 Patient Education: Patient [...] acute concerns. 11/13/2018 Appointment: [phone] [place] (15 min) Moderate 11/13/2018 Patient Education: [...] call for acute concerns. Hyperlipidemia-check fasting labs Dlqejftzzktfbf-wmbitbo-mxvuw labs 10/30/2018 Visit Plan: Hypertension - uncontrolled [...] call for acute concerns. Hyperlipidemia-check fasting labs Ordzxanezybxbp-frwiipx-wfbbk labs 10/30/2018 Appointment: Shahida Manzo WPtel: [phone] [phone] (30 min) Complex 10/30/2018 Patient Education: Patient Medication Summary Completed 10/30/2018 Visit Plan: Conjunctivitis - rx for eye drops/lube sent electronically to the patient's pharmacy. The patient has been instructed to cleanse affected eye with warm washcloth, then place medication into affected eye four times daily. 10/08/2018 Appointment: Shahida Manzo WPtel: [phone] [phone] (30 min) Complex 10/08/2018 Patient Education: Patient Medication Summary Completed 10/08/2018 Appointment: Isabelle Orozco WPtel: [phone] [phone] (15 min) Moderate 07/30/2018 Visit Plan: [...] concerns. 07/16/2018 Appointment: Isabelle Orozco WPtel: [phone] [facility] [place] (15 min) Moderate 07/16/2018 Patient Education: Patient [...] of over-medication. 07/10/2018 Appointment: Shahida Manzo WPtel: [phone] (15 min) Moderate 07/10/2018 Patient Education: Patient Medication Summary Completed 07/10/2018 Patient Education: Back Pain Completed 07/10/2018 Visit Plan: Sinusitis - Pt has acute infection - pain in face, maxillary region, Pt informed to use decongestant, RX given to patient, sinus rinses also recommended. Call if symptoms do not show improvement. 05/28/2018 Appointment: Shahida Manzo WPtel: [phone] [phone] (30 min) Complex 05/28/2018 Patient Education: [...] acute concerns. 02/07/2018 Appointment: Isabelle Orozco WPtel: [address] [place] [address] (15 min) Moderate 02/07/2018 Patient Education: Patient [...] less fatigue 01/19/2018 Appointment: Shahida Manzo WPtel: [address] [place] [phone] (15 min) Moderate 01/19/2018 Patient Education: Patient [...] surrogate. 11/23/2017 Appointment: Isabelle Orozco WPtel: [phone] [facility] [facility] - Annual Wellness Visit 11/23/2017 [...] show improvement. 09/12/2017 Appointment: Isabelle Orozco WPtel: [phone] [facility] (15 min) Moderate 09/12/2017 Patient Education: Patient [...] spray. 07/25/2017 Appointment: Isabelle Orozco WPtel: [phone] [facility] (30 min) Complex 07/25/2017 Patient Education: [...] available 06/27/2017 Appointment: Shahida Manzo WPtel: [phone] [phone] [place] (15 min) Moderate 06/27/2017 Patient Education: Patient [...] improving. 05/08/2017 Appointment: Shahida Manzo WPtel: [phone] [phone] (15 min) Moderate 05/08/2017 Patient Education: [...] improvement. 03/14/2017 Appointment: Shahida Manzo WPtel: [phone] [phone] (15 min) Moderate 03/14/2017 Patient Education: Patient Medication Summary Completed 03/14/2017 Appointment: Shahida Manzo WPtel: [phone] [phone] [place] (15 min) Moderate 02/21/2017 Visit Plan: Abdominal [...] improving. 02/20/2017 Appointment: Isabelle Orozco WPtel: [phone] [facility] [place] (30 min) Complex 02/20/2017 Patient Education: Patient [...] on use 02/06/2017 Appointment: Melba Goldman WPtel: [phone] [facility] (15 min) Moderate 02/06/2017 Patient Education: Patient [...] patient. 12/05/2016 Appointment: [facility]el[phone] [facility] 12/05/2016 Patient Education: Patient Medication Summary Completed 12/05/2016 Visit Plan: Sinusitis - Pt has acute infection - pain in face, maxillary region, Pt informed to use decongestant, RX given to patient, sinus rinses also recommended. Call if symptoms do not show improvement. Dysuria- culture urine 11/28/2016 Appointment: Shahida Manzo WPtel: [phone] [phone] (15 min) Moderate 11/28/2016 Patient Education: Patient [...] control. 11/07/2016 Appointment: Isabelle Orozco WPtel: [phone] [facility] [facility] - Annual Wellness Visit 11/07/2016 [...] allergy spray. 08/15/2016 Appointment: Isabelle Orozco WPtel: [phone] [facility] (15 min) Moderate 08/15/2016 Patient Education: Patient [...] pain use. 06/07/2016 Appointment: Shahida Manzo WPtel: [phone] [phone] (10 min) Simple 06/07/2016 Patient Education: Patient [...] office today 03/14/2016 Appointment: Shahida Manzo WPtel: [phone] [phone] (15 min) Moderate 03/14/2016 Patient Education: Patient Medication Summary Completed 03/14/2016 Care Plan: COMPLETE CBC AUTOMATED LOINC : 01262-9 Pending 03/14/2016 Visit Plan: Cellulitis - The patient was instructed in appropriate wound care. The patient was instructed to use the antibiotic ointment as per RX. The patient is to call for any change in symptoms, increase in size of the lesion, increase in pain. 02/22/2016 Appointment: Isabelle Orozco WPtel: [phone] [facility] (15 min) Moderate 02/22/2016 Patient Education: Patient [...] unchanged. colonoscopy with dr. dai 11/24/2015 Appointment: Susi [facility]ba [facility]Ptel[phone] (30 min) Complex 11/24/2015 Patient Education: Patient Medication Summary Completed 11/24/2015 Patient Education: Obesity Completed 11/24/2015 Patient Education: Hypertension Completed 11/24/2015 Patient Education: .Cervicalgia Neck Pain Completed 11/24/2015 Care Plan: Referral Order SNOMED-CT : [id number] Ordered 11/24/2015 Visit Plan: Acute Migraine - [...] to monitor 06/11/2015 Appointment: Shahida Manzo WPtel: [address] [place] [phone] (15 min) Moderate 06/11/2015 Patient Education: Patient [...] OFFICE Sleep apnea-patient needs new CPAP-will contact [place] patient 03/19/2015 Visit Plan: Hypertension - elevated today [...] OFFICE Sleep apnea-patient needs new CPAP-[facility] Pt reports that she uses [...] OFFICE Sleep apnea-patient needs new CPAP-will contact [place] patient Pt reports that she uses her CPAP and feels like she gets benefit from use of her CPAP with improved energy. 03/19/2015 Appointment: (15 min) Moderate 03/19/2015 Patient [...] Medication Summary Completed 01/07/2015 Patient Education: [facility] - Saving AutoInj - 18+ - [...] areas dry Exposure to scabies-RX sent to [facility] pharmacy. 03/07/2014 Appointment: Melba Goldman WPtel: [facility] [place] rash 03/07/2014 Patient Education: Patient Medication [...] change in blood pressure readings at home. Zurxfmx-klsxmfgsgbi-hsdxdmlh duragesic patch-appt with Dr Ortiz for pain management 11/21/2013 Appointment: Shahida Manzo WPtel: [phone] [place] Follow up 11/21/2013 Patient Education: Patient Medication Summary Completed 11/21/2013 Patient Education: Hypertension Completed 11/21/2013 Patient Education: .Cervicalgia Neck Pain Completed 11/21/2013 Appointment: Melba Goldman WPtel: [phone] [facility] [place] Other 11/19/2013 Appointment: Melba Goldman WPtel: [facility] [place] Follow up 11/06/2013 Appointment: Melba Goldman WPtel: [address] [place] [address] Lab Draw 10/15/2013 Patient Education: Patient Medication [...] AT BEDTIME 09/24/2013 Appointment: Shahida Manzo WPtel: [address] [place] [address] Other 09/24/2013 Patient Education: Patient Medication Summary Completed 09/24/2013 Visit Plan: Paronychia/Cellulitis - continue with oral antibiotics as previously directed, return to clinic as previously directed, call for acute change in symptoms, worsening redness, warmth, discharge. 09/19/2013 Appointment: Melba Goldman WPtel: [address] [place] [address] Other 09/19/2013 Patient Education: Patient Medication Summary Completed 09/19/2013 Visit Plan: Conjunctivitis - rx for eye drops/lube sent electronically to the patient's pharmacy. The patient has been instructed to cleanse affected eye with warm washcloth, then place medication into affected eye four times daily. Thrush-refill nystatin-call if symptoms do not resolve 08/05/2013 Appointment: Shahida Manzo WPtel: [address] [place] [address] Sick 08/05/2013 Patient Education: Patient Medication Summary [...] show improvement. 06/03/2013 Appointment: Melba Goldman WPtel: [address] [place], [place] [address] Follow up 06/03/2013 Patient Education: Patient Medication Summary Completed 06/03/2013 Patient Education: Hypertension Completed 06/03/2013 Appointment: Melba Goldman WPtel: [address] [place] [address] [place] Nurse Visit 05/13/2013 Patient Education: Patient [...] of control. 05/07/2013 Appointment: Melba Goldman WPtel: [address] [place], [place] [phone] Follow up 05/07/2013 Patient Education: Patient Medication Summary Completed 05/07/2013 Patient Education: Hypertension Completed 05/07/2013 Patient Education: Patient Medication Summary Completed 04/30/2013 Patient Education: Hypertension Completed 04/30/2013 Visit Plan: Arthritis- occasionally uncontrolled symptoms- recommend pt to take antiinflammatory as directed for pain control. Use tylenol for break through pain symptoms. 12/03/2012 Appointment: Melba Goldman WPtel: [address] [place] [address] Follow up 12/03/2012 Patient Education: Patient Medication [...] not resolve 09/24/2012 Appointment: Shahida Manzo WPtel: [phone] Sick 09/24/2012 Patient Education: Patient Medication Summary Completed [...] with diflucan 09/10/2012 Appointment: Melba Goldman [facility]Ptel: [phone] [facility] Follow up 09/10/2012 Patient Education: Patient Medication [...] symptoms. 08/08/2012 Appointment: Shahida Manzo WPtel: [phone] [phone] Follow up 08/08/2012 Patient Education: Patient Medication Summary Completed 08/08/2012 Patient Education: Patient Medication Summary Completed 08/07/2012 Patient Education: Hypertension Completed 08/07/2012 Appointment: Melba Goldman WPtel: [address] [place], [place] [phone] Lab Draw 02/16/2012 Patient Education: Patient Medication [...] Needs labs. 02/15/2012 Appointment: Melba Goldman WPtel: [address] [place], [place] [phone] Other 02/15/2012 Patient Education: Patient Medication Summary Completed 02/15/2012 Visit Plan: Abdominal pain - ultrasound tomorrow AM nothing to eat before the ultrasound from 11pm tonight bland diet. Nausea - worse with fatty foods, recommended low fat/bland diet, call if symptoms worsening. 11/10/2011 Appointment: Melba Goldman WPtel: [address] [place], [place] [phone] Other 11/10/2011 Patient Education: Patient Medication Summary [...] the stools. 08/01/2011 Appointment: Melba Goldman WPtel: [facility] [place] Other 08/01/2011 Patient Education: Patient Medication Summary Completed 08/01/2011 Patient Education: High Blood Pressure: Essential Hypertension Completed 08/01/2011 Visit Plan: Sinusitis - Pt has acute infection - pain in face, maxillary region, Pt informed to use decongestant, RX given to patient, sinus rinses also recommended. Call if symptoms do not show improvement. Cough- kishore zurita 07/14/2011 Appointment: Shahida Manzo WPtel: [phone] [phone] [place] Other 07/14/2011 Patient Education: Patient Medication Summary [...] the office. 05/23/2011 Appointment: Shahida Manzo WPtel: [phone] [phone] [place] Other 05/23/2011 Patient Education: Patient Medication [...] med 05/03/2011 Appointment: Shahida Manzo WPtel: [phone] [phone] [place] Other 05/03/2011 Patient Education: Patient Medication [...] her symptoms. 04/25/2011 Appointment: Shahida Manzo WPtel: [address] [place], [place] [phone] Other 04/25/2011 Patient Education: Patient Medication Summary Completed 04/25/2011 Referral: Matthew Dai Referral Appointment Requested Referral: Matthew Dai Information faxed to Dr. Dai. Their office to book. Patient informed. Completed Instructions Comment . 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 . Paronychia-continue abx as previously prescribed. ROCEPHIN [...] this patient. ADD ABILIFY 2MG AT BEDTIME . Acute Migraine - pt has chronic [...] drainage, or any other acute concerns. . Paronychia/Cellulitis - continue with oral antibiotics as previously directed, return to clinic as previously directed, call for acute change in symptoms, worsening redness, warmth, discharge. . DX sinusitis - discussed expected course [...] provided for patient. Cough-refill cough med . UTI - pt with positive urinalysis [...] is part of her fatigue. Needs labs. RESTART GENTAMICIN EYE DROPS DIRECTED Throw out your current mascara and eye makeup. Conjunctivitis - rx for eye drops/lube sent electronically to the patient's pharmacy. The patient has been instructed to cleanse affected eye with warm washcloth, then place medication into affected eye four times daily. Thrush-refill nystatin-call if symptoms do not resolve hold the lipitor x 2 weeks - [...] - this is a good probiotic. . Sinusitis - Pt has acute infection [...] in the nasal steroid allergy spray. . Skin tear of left and right [...] bleeding. Patient verbalized understandig of plan. . Hypertension - well controlled - continue [...] fitted lindsay. Thrush- treating with diflucan . Sinusitis - Pt has acute infection - pain in face, maxillary region, Pt informed to use decongestant, RX given to patient, sinus rinses also recommended. Call if symptoms do not show improvement. LOSARTAN 50MG DAILY MONITOR BLOOD PRESSURE AND [...] call for acute concerns. Hyperlipidemia-check fasting labs Vpowxkqekqecbh-hhwlrjo-gigra labs LOSARTAN 50MG DAILY MONITOR BLOOD PRESSURE [...] call for acute concerns. Hyperlipidemia-check fasting labs Jskoxjnngdgslu-tvpeujh-keyih labs Edarbi 40mg daily Labs now EKG . [...] 40mg daily-dose given in the office today TAPER OFF OF CYMBALTA-TAKE EVERY OTHER DAY [...] OFFICE Sleep apnea-patient needs new CPAP-[facility] contact [facility] patient TAPER OFF OF CYMBALTA-TAKE EVERY OTHER DAY [...] OFFICE Sleep apnea-patient needs new CPAP-will contact [place] patient Pt reports that she uses [...] OFFICE Sleep apnea-patient needs new CPAP-will contact [place] patient Pt reports that she uses her CPAP and feels like she gets benefit from use of her CPAP with improved energy. . Sinusitis - Pt has acute infection [...] in the nasal steroid allergy spray. . Abdominal pain/Diverticulitis - pt sent for [...] if the symptoms are not improving. . Medicare Exam - today we discussed [...] months based on previous levels of control. [employer] BID . Sinusitis - Pt [...] neck-let us know when you are available . Wound Instructions - Pt was instructed [...] efudex - pt instructed on use . Arthritis- occasionally uncontrolled symptoms- recommend pt to take antiinflammatory as directed for pain control. Use tylenol for break through pain symptoms. . Hypertension - uncontrolled - the patient's [...] Call if symptoms do not show improvement. TAKE A PROBIOTIC TWICE DAILY WHILE ON THE ANTIBIOTIC . Sinusitis - chronic - pain in face, maxillary region, Pt informed to use decongestant, RX given to patient, sinus rinses also recommended. Call if symptoms do not show improvement. Gentamicin nasal spray to [facility] Increase prilosec to twice daily . Sinusitis [...] drainage, or any other acute concerns. . Tinea-discussed natural and expected course of this diagnosis and to alert me if symtpoms do not follow expect course, or if any worse. RX sent to patient's pharmacy. Keep areas dry [facility]ies[facility] . Hypertension - well controlled - continue [...] in diet to bulk up the stools. rocephin/kenalog . Sinusitis - Pt has acute [...] directed, and understands the consequences of over-medication. . URI - Pt advised to increase [...] do not improve, or if any worse. . URI - Pt advised to increase [...] codeine cough syrup called in to pharmacy. Add bystolic 5mg with the 10mg daily - come back in 1 week and call if blood pressure remains elevated . . HTN-improved today-no change in medications Tinea-start clotrimazole and diflucan Elevated ALT-check labs today to monitor return monday for blood pressure check increase [...] medication into affected eye four times daily. Do not start the diflucan until you [...] medication into affected eye four times daily. ROCEPHIN 500 MG IM AUGMENTIN PO 875 MG DAILY X 10 DAYS PREDNISONE PO 40 MG DAILY X 5 DAYS REFILL HYDROCODONE URINE SAMPLE . Sinusitis - Pt has acute infection - pain in face, maxillary region, Pt informed to use decongestant, RX given to patient, sinus rinses also recommended. Call if symptoms do not show improvement. Dysuria-culture urine Rocephin and Kenalog . Arthritis- occasionally uncontrolled [...] size of the lesion, increase in pain. Increase Synthroid to 100mcg po daily. Repeat [...] Influenza vaccine today in the office. . Anxiety - the patient has uncontrolled [...] call for acute concerns. . Hypertension - well controlled - continue with current medications, continue with no added salt diet. Pt has been encouraged to exercise daily. The pt has been advised to call the office if there are any acute concerns about change in blood pressure readings at home. Prvafsk-tffwrwdldrv-itvjgstk duragesic patch-appt with Dr Ortiz for pain management . Diarrhea - recommended bland diet, low [...] prescription sent to pharmacy per pt request. . Hypertension - fairlywell controlled - due [...]
--- OUTSIDE RECORDS SUMMARY | 2019-03-08 10:21 | XMS REPORT | CCD ---
Author Author [facility] Address [address] [place] [address] Phone Care Team Providers Care Bursar Name Role Phone PP Unavailable CCM Unavailable Summary Purpose Interface Exchange Insurance Providers Payer name Policy type / Coverage type Covered alliance party ID Effective Begin Date Effective End Date [employer] Medicare Part B [id number] Unknown Family history Son Diagnosis Age At Onset Crohn's disease Unknown Brother Diagnosis Age At Onset Cardiovascular disease Unknown Mother Diagnosis Age At Onset Hypertension Unknown Father Diagnosis Age At Onset Cardiovascular disease Unknown Social History Social History Element Codes Description Effective Dates Marital status Unknown 04/22/2011 Number of children Unknown 3 1 son -Crohns 04/22/[address]: 469085065 Nonsmoker 04/22/2011 Allergies, Adverse Reactions, Alerts Substance Reaction Codes Entered Date Inactivated Date Status * NO KNOWN FOOD ALLERGIES Unknown 05/19/2011 No Inactive Date Active * NO KNOWN DRUG ALLERGIES Unknown 04/22/2011 No Inactive Date Active Past Medical History Illness Codes Condition Status Onset Date Resolved Date 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 [...] Problems Condition Codes Effective Dates Condition Status 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 MAY INCREASE TO 2 TABLETS AT BEDTIME NEEDED 12/13/2018 04/01/2019 Active losartan 100 mg tablet RxNorm: 997353 1 Tablet(s) PO daily 11/13/2018 05/11/2019 Active hydrocodone 10 mg-acetaminophen 325 mg tablet RxNorm: 966093 Tablet(s) PO TAKE ONE TO TWO TABLETS BY MOUTH EVERY 6 HOURS NEEDED FOR PAIN 11/13/2018 11/27/2018 Inactive Synthroid 112 mcg tablet RxNorm: 281275 1 Tablet(s) PO daily 11/01/2018 04/29/2019 Active Brand name only! Dosage change! Synthroid 112 mcg tablet RxNorm: 691357 1 Tablet(s) PO daily 11/01/2018 10/31/2018 Inactive Brand name only! Dosage change! losartan 50 mg tablet RxNorm: 945047 1 Tablet(s) PO daily 10/30/2018 11/12/2018 Inactive Tamiflu 75 mg capsule RxNorm: 373140 1 Capsule(s) PO daily 10/30/2018 11/08/2018 Inactive Synthroid 100 mcg tablet RxNorm: 327545 1 Tablet(s) PO daily 10/30/2018 10/31/2018 Inactive Brand name only! Lexapro 20 mg tablet RxNorm: 790629 TAKE ONE AND ONE-HALF TABLET BY MOUTH DAILY 10/23/2018 10/17/2019 Active alprazolam 0.25 mg tablet RxNorm: 667957 1 Tablet(s) PO TID as needed 10/10/2018 01/07/2019 Inactive polymyxin B sulfate 10,000 unit-trimethoprim 1 mg/mL eye drops RxNorm: 339005 2 Drop(s) ophthalmic (eye) QID 10/08/2018 10/14/2018 Inactive hydrocodone 10 mg-acetaminophen 325 mg tablet RxNorm: 248940 Tablet(s) PO TAKE ONE TO TWO TABLETS BY MOUTH EVERY 6 HOURS NEEDED FOR PAIN 09/11/2018 09/25/2018 Inactive piroxicam 20 mg capsule RxNorm: 130076 TAKE ONE CAPSULE BY MOUTH DAILY 08/09/2018 01/05/2019 Inactive trazodone 50 mg tablet RxNorm: 783703 TAKE ONE AND ONE-HALF (1 1/2) TABLET BY MOUTH AT BEDTIME. MAY INCREASE TO 2 TABLETS AT BEDTIME NEEDED 08/02/2018 11/19/2018 Inactive Nexium 40 mg capsule,delayed release RxNorm: 872092 TAKE ONE CAPSULE BY MOUTH TWICE A DAY 07/23/2018 11/19/2018 Inactive Bystolic 5 mg tablet RxNorm: 511169 1 Tablet(s) PO daily to take with 10 mg daily to equal 15mg daily 07/17/2018 10/29/2018 Inactive alprazolam 0.25 mg tablet RxNorm: 899160 1 Tablet(s) PO TID as needed 07/16/2018 10/29/2018 Inactive hydrocodone 10 mg-acetaminophen 325 mg tablet RxNorm: 844076 Tablet(s) PO TAKE ONE TO TWO TABLETS BY MOUTH EVERY 6 HOURS NEEDED FOR PAIN 07/10/2018 07/24/2018 Inactive prednisone 20 mg tablet RxNorm: 561546 1 Tablet(s) PO BID 07/10/2018 07/14/2018 Inactive Phenergan with Codeine Syrup RxNorm: 5-10 Milliliter(s) PO Q6 PRN 06/28/2018 01/28/2019 Inactive prednisone 20 mg tablet RxNorm: 699602 2 Tablet(s) PO daily 05/31/2018 06/04/2018 Inactive prednisone 20 mg tablet RxNorm: 110742 2 Tablet(s) PO daily 05/31/2018 05/30/2018 Inactive ceftriaxone 500 mg solution for injection RxNorm: 8505612 Inj 05/28/2018 05/28/2018 Inactive doxycycline hyclate 100 mg tablet RxNorm: 0020674 1 Tablet(s) PO BID 05/28/2018 06/06/2018 Inactive Kenalog 40 mg/mL suspension for injection RxNorm: 3626105 Milliliter(s) Inj 05/28/2018 05/28/2018 Inactive hydrocodone 10 mg-acetaminophen 325 mg tablet RxNorm: 881291 Tablet(s) PO TAKE ONE TO TWO TABLETS BY MOUTH EVERY 6 HOURS NEEDED FOR PAIN 05/09/2018 05/23/2018 Inactive alprazolam 0.25 mg tablet RxNorm: 146352 1 Tablet(s) PO daily as needed 04/25/2018 07/15/2018 Inactive Bystolic 10 mg tablet RxNorm: 068983 TAKE ONE TABLET BY MOUTH DAILY 04/16/2018 09/12/2018 Inactive hydrocodone 10 mg-acetaminophen 325 mg tablet RxNorm: 058154 Tablet(s) PO TAKE ONE TO TWO TABLETS BY MOUTH EVERY 6 HOURS NEEDED FOR PAIN 03/06/2018 03/20/2018 Inactive trazodone 50 mg tablet RxNorm: 451723 TAKE ONE AND ONE-HALF (1 1/2) TABLET BY MOUTH AT BEDTIME. MAY INCREASE TO 2 TABLETS AT BEDTIME NEEDED 02/23/2018 06/12/2018 Inactive mupirocin 2 % topical ointment RxNorm: 734081 1 TOP BID 02/09/2018 05/27/2018 Inactive Zofran 4 mg tablet RxNorm: 290372 1 Tablet(s) PO TID as needed 02/08/2018 No Stop Date Active Keflex 500 mg capsule RxNorm: 303703 1 Capsule(s) PO TID 02/07/2018 02/13/2018 Inactive alprazolam 0.25 mg tablet RxNorm: 905874 1 Tablet(s) PO daily as needed 01/24/2018 07/09/2018 Inactive hydrocodone 10 mg-acetaminophen 325 mg tablet RxNorm: 133142 Tablet(s) PO TAKE ONE TO TWO TABLETS BY MOUTH EVERY 6 HOURS NEEDED FOR PAIN 01/19/2018 02/02/2018 Inactive hydrochlorothiazide 25 mg tablet RxNorm: 315844 Tablet(s) TAKE ONE TABLET BY MOUTH DAILY 01/19/2018 01/19/2018 Inactive Kenalog 40 mg/mL suspension for injection RxNorm: 2660470 1 Milliliter(s) Inj 01/19/2018 01/19/2018 Inactive piroxicam 20 mg capsule RxNorm: 933860 1 Capsule(s) PO daily 01/19/2018 07/17/2018 Inactive D/C ORDER FOR HCTZ ceftriaxone 500 mg solution for injection RxNorm: 9157599 500 Milligram(s) Inj 01/19/2018 01/19/2018 Inactive Nexium 40 mg capsule,delayed release RxNorm: 966515 TAKE ONE CAPSULE BY MOUTH TWICE A DAY 01/18/2018 04/17/2018 Inactive Nexium 40 mg capsule,delayed release RxNorm: 491675 TAKE ONE CAPSULE BY MOUTH TWICE A DAY 01/15/2018 04/14/2018 Inactive ciprofloxacin 0.3 % eye drops RxNorm: 655549 2 Drop(s) ophthalmic (eye) Q2H while awake x 2 days, then Q4H x 5 days 11/23/2017 05/27/2018 Inactive Keflex 500 mg capsule RxNorm: 032237 1 Capsule(s) PO TID 11/23/2017 11/29/2017 Inactive hydrocodone 10 mg-acetaminophen 325 mg tablet RxNorm: 798996 Tablet(s) PO TAKE ONE TO TWO TABLETS BY MOUTH EVERY 6 HOURS NEEDED FOR PAIN 10/30/2017 11/13/2017 Inactive Augmentin 500 mg-125 mg tablet RxNorm: 178617 1 Tablet(s) PO TID 10/27/2017 11/05/2017 Inactive alprazolam 0.25 mg tablet RxNorm: 921521 1 Tablet(s) PO daily as needed 10/26/2017 04/24/2018 Inactive trazodone 50 mg tablet RxNorm: 107917 TAKE ONE AND ONE-HALF (1 1/2) TABLET BY MOUTH AT BEDTIME. MAY INCREASE TO 2 TABLETS AT BEDTIME NEEDED 09/25/2017 02/03/2018 Inactive Lexapro 20 mg tablet RxNorm: 473107 TAKE ONE AND ONE-HALF TABLET BY MOUTH DAILY 09/15/2017 09/09/2018 Inactive Flagyl 500 mg tablet RxNorm: 233692 1 Tablet(s) PO TID 09/12/2017 09/21/2017 Inactive promethazine 25 mg tablet RxNorm: 530563 1 Tablet(s) PO TID as needed nausea and vomitting THIS WILL MAKE YOU SLEEPY 09/12/2017 11/08/2017 Inactive Keflex 500 mg capsule RxNorm: 773411 1 Capsule(s) PO QID 08/25/2017 08/31/2017 Inactive [SAVINGS FOR UNINSURED PATIENTS -- [id number], PCN: [id number], [facility], ID# [id number], Process claim through [employer], for questions: . THIS IS NOT INSURANCE.] alprazolam 0.25 mg tablet RxNorm: 348632 1 Tablet(s) PO daily as needed 07/31/2017 04/24/2018 Inactive prednisone 20 mg tablet RxNorm: 125901 2 Tablet(s) PO daily 07/25/2017 07/29/2017 Inactive Augmentin 500 mg-125 mg tablet RxNorm: 716257 1 Tablet(s) PO TID 07/25/2017 08/03/2017 Inactive trazodone 50 mg tablet RxNorm: 334836 TAKE ONE AND ONE-HALF (1 1/2) TABLET BY MOUTH AT BEDTIME. MAY INCREASE TO 2 TABLETS AT BEDTIME NEEDED 06/30/2017 09/03/2017 Inactive Bystolic 10 mg tablet RxNorm: 167413 TAKE ONE TABLET BY MOUTH DAILY 06/30/2017 2017 Inactive hydrochlorothiazide 25 mg tablet RxNorm: 610963 TAKE ONE TABLET BY MOUTH DAILY 06/30/2017 01/18/2018 Inactive Flagyl 500 mg tablet RxNorm: 591642 1 Tablet(s) PO TID 06/27/2017 07/03/2017 Inactive Phenergan with Codeine Syrup RxNorm: 5-10 Milliliter(s) PO Q6 PRN 06/27/2017 11/15/2017 Inactive Levaquin 500 mg tablet RxNorm: 492382 1 Tablet(s) PO daily 06/27/2017 07/03/2017 Inactive Kenalog 40 mg/mL suspension for injection RxNorm: 2036695 1 Milliliter(s) Inj 06/27/2017 06/27/2017 Inactive Nexium 40 mg capsule,delayed release RxNorm: 599711 1 Capsule(s) PO BID TAKE ONE CAPSULE BY MOUTH BID 05/22/2017 09/18/2017 Inactive Nexium 40 mg capsule,delayed release RxNorm: 429474 1 Capsule(s) PO BID TAKE ONE CAPSULE BY MOUTH BID 05/22/2017 05/21/2017 Inactive hydrocodone 10 mg-acetaminophen 325 mg tablet RxNorm: 703275 Tablet(s) PO TAKE ONE TO TWO TABLETS BY MOUTH EVERY 6 HOURS NEEDED FOR PAIN 05/17/2017 06/15/2017 Inactive Nexium 40 mg capsule,delayed release RxNorm: 469786 Capsule(s) TAKE ONE CAPSULE BY MOUTH BID 05/17/2017 05/21/2017 Inactive alprazolam 0.25 mg tablet RxNorm: 511888 1 Tablet(s) PO daily as needed 05/03/2017 07/01/2017 Inactive Levaquin 500 mg tablet RxNorm: 145478 1 Tablet(s) PO daily 04/20/2017 04/26/2017 Inactive clotrimazole 1 % topical cream RxNorm: 106099 1 Application TOP BID 04/20/2017 11/07/2017 Inactive Kenalog 40 mg/mL suspension for injection RxNorm: 2391222 Milliliter(s) Inj 04/20/2017 04/20/2017 Inactive nystatin 100,000 unit/gram topical powder RxNorm: 588476 1 Gram(s) APPLY TOPICALLY TWO TIMES A DAY 04/10/2017 07/08/2017 Inactive trazodone 50 mg tablet RxNorm: 314210 TAKE ONE AND ONE-HALF (1 1/2) TABLET BY MOUTH AT BEDTIME. MAY INCREASE TO 2 TABLETS AT BEDTIME NEEDED 03/28/2017 06/23/2017 Inactive Augmentin 875 mg-125 mg tablet RxNorm: 482788 1 Tablet(s) PO BID 03/14/2017 03/20/2017 Inactive Kenalog 40 mg/mL suspension for injection RxNorm: 2315981 1 Milliliter(s) Inj 03/14/2017 03/14/2017 Inactive Lexapro 20 mg tablet RxNorm: 161871 1.5 Tablet(s) PO daily 03/08/2017 03/07/2017 Inactive Lexapro 20 mg tablet RxNorm: 870105 1.5 Tablet(s) PO daily 03/08/2017 07/05/2017 Inactive alprazolam 0.25 mg tablet RxNorm: 896079 1 Tablet(s) PO daily as needed 02/23/2017 04/23/2017 Inactive (Response to an electronic controlled substance refill request - RxReferenceNumber: [id number]) Flagyl 500 mg tablet RxNorm: 459789 1 Tablet(s) PO TID 02/20/2017 03/01/2017 Inactive promethazine 25 mg tablet RxNorm: 345501 1 Tablet(s) PO TID as needed nausea 02/20/2017 03/01/2017 Inactive Cipro 500 mg tablet RxNorm: 221636 1 Tablet(s) PO BID 02/20/2017 03/01/2017 Inactive Flagyl 500 mg tablet RxNorm: 739680 1 Tablet(s) PO TID 02/09/2017 02/15/2017 Inactive Trintellix 10 mg tablet RxNorm: 1139630 1 Tablet(s) PO QAM 02/06/2017 03/07/2017 Inactive Efudex 5 % topical cream RxNorm: 824632 1 Application TOP BID use on skin spot on nose 02/06/2017 02/15/2017 Inactive Bystolic 10 mg tablet RxNorm: 280724 TAKE ONE TABLET BY MOUTH DAILY 02/03/2017 06/02/2017 Inactive Imitrex 50 mg tablet RxNorm: 373387 TAKE ONE TABLET BY MOUTH EVERY 8 HOURS NEEDED MAY REPEAT IN 1 HOUR OF INITIAL DOSE. DISCONTINUE FIORICET 12/22/2016 02/19/2017 Inactive Nexium 40 mg capsule,delayed release RxNorm: 318414 TAKE ONE CAPSULE BY MOUTH EVERY DAY 12/21/2016 05/16/2017 Inactive Lexapro 20 mg tablet RxNorm: 675517 Tablet(s) TAKE ONE TABLET BY MOUTH DAILY 12/05/2016 02/05/2017 Inactive Augmentin 875 mg-125 mg tablet RxNorm: 627764 1 Tablet(s) PO BID 11/28/2016 12/04/2016 Inactive ceftriaxone 500 mg solution for injection RxNorm: 2305282 1 Milliliter(s) Inj 11/28/2016 11/28/2016 Inactive hydrocodone 10 mg-acetaminophen 325 mg tablet RxNorm: 788796 Tablet(s) PO TAKE ONE TO TWO TABLETS BY MOUTH EVERY 6 HOURS NEEDED FOR PAIN 11/28/2016 05/16/2017 Inactive (Appended: Controlled substance eRx refill - RxReferenceNumber: [id number]) prednisone 20 mg tablet RxNorm: 607230 2 Tablet(s) PO daily 11/28/2016 12/02/2016 Inactive trazodone 50 mg tablet RxNorm: 686465 Tablet(s) TAKE 1 AND 1/2 TABLETS EVERY NIGHT AT BEDTIME , MAY INCREASE TO 2 TABLETS AT BEDTIME NEEDED 11/21/2016 11/20/2016 Inactive Synthroid 100 mcg tablet RxNorm: 014863 1 Tablet(s) PO daily 11/21/2016 05/19/2017 Inactive Brand name only! trazodone 50 mg tablet RxNorm: 451986 TAKE 1 AND 1/2 TABLETS EVERY NIGHT AT BEDTIME , MAY INCREASE TO 2 TABLETS AT BEDTIME NEEDED 11/21/2016 08/01/2018 Inactive Synthroid 100 mcg tablet RxNorm: 471247 1 Tablet(s) PO daily TAKE ONE TABLET BY MOUTH DAILY 11/08/2016 11/20/2016 Inactive ceftriaxone 500 mg solution for injection RxNorm: 9995261 Inj 11/07/2016 11/07/2016 Inactive Kenalog 40 mg/mL suspension for injection RxNorm: 5497494 Milliliter(s) Inj 11/07/2016 11/07/2016 Inactive Xanax 0.25 mg tablet RxNorm: 955796 1 Tablet(s) PO daily as needed 10/31/2016 05/02/2017 Inactive alprazolam 0.25 mg tablet RxNorm: 858703 1 Tablet(s) PO daily as needed 10/21/2016 12/18/2016 Inactive (Response to an electronic controlled substance refill request - RxReferenceNumber: [id number]) hydrochlorothiazide 25 mg tablet RxNorm: 494931 TAKE ONE TABLET BY MOUTH DAILY 10/11/2016 04/08/2017 Inactive Xanax 0.25 mg tablet RxNorm: 430463 1 Tablet(s) PO daily as needed 08/23/2016 10/19/2016 Inactive Flonase Allergy Relief 50 mcg/actuation nasal spray,suspension RxNorm: 8996571 1 [place] NASAL daily 08/15/2016 No Stop Date Active amoxicillin 500 mg capsule RxNorm: 214743 1 Capsule(s) PO TID 08/15/2016 08/24/2016 Inactive Bystolic 10 mg tablet RxNorm: 170666 TAKE ONE TABLET BY MOUTH DAILY 08/01/2016 12/28/2016 Inactive trazodone 50 mg tablet RxNorm: 137938 TAKE 1 AND 1/2 TABLETS EVERY NIGHT AT BEDTIME , MAY INCREASE TO 2 TABLETS AT BEDTIME NEEDED 07/25/2016 11/11/2016 Inactive alprazolam 0.25 mg tablet RxNorm: 033414 1 Tablet(s) PO daily as needed 07/25/2016 08/22/2016 Inactive (Response to an electronic controlled substance refill request - RxReferenceNumber: [id number]) Imitrex 50 mg tablet RxNorm: 833347 1 Tablet(s) PO Q8 as needed may repeat x1 dose in 1 hour of inital dose. 07/13/2016 No Stop Date Active Lexapro 20 mg tablet RxNorm: 408293 TAKE 1/2 TABLET BY MOUTH DAILY FOR 10 DAYS, THEN TAKE ONE TABLET BY MOUTH DAILY 06/27/2016 11/23/2016 Inactive Synthroid 100 mcg tablet RxNorm: 227818 TAKE ONE TABLET BY MOUTH DAILY 06/20/2016 11/07/2016 Inactive Augmentin 500 mg-125 mg tablet RxNorm: 928236 1 Tablet(s) PO TID 06/07/2016 06/13/2016 Inactive hydrocodone 10 mg-acetaminophen 325 mg tablet RxNorm: 232471 Tablet(s) PO TAKE ONE TO TWO TABLETS BY MOUTH EVERY 6 HOURS NEEDED FOR PAIN 06/07/2016 11/27/2016 Inactive (Appended: Controlled substance eRx refill - RxReferenceNumber: [id number]) hydrochlorothiazide 25 mg tablet RxNorm: 225460 TAKE ONE TABLET BY MOUTH DAILY 03/14/2016 09/09/2016 Inactive Edarbi 40 mg tablet RxNorm: 6167002 1 Tablet(s) PO daily 03/14/2016 06/06/2016 Inactive trazodone 50 mg tablet RxNorm: 431691 Tablet(s) TAKE 1 AND 1/2 TABLET AT BEDTIME. MAY INCREASE TO 2 TABLETS IF NECESSARY 02/25/2016 07/05/2016 Inactive Imitrex 50 mg tablet RxNorm: 245302 1 Tablet(s) PO Q8 as needed may repeat x1 dose in 1 hour of inital dose. 02/25/2016 07/12/2016 Inactive dc fioricet Xanax 0.25 mg tablet RxNorm: 558540 1 Tablet(s) PO daily as needed 02/24/2016 07/21/2016 Inactive mupirocin 2 % topical ointment RxNorm: 192382 1 TOP BID 02/22/2016 11/08/2017 Inactive Bactrim DS 800 mg-160 mg tablet RxNorm: 127872 1 Tablet(s) PO BID 02/22/2016 03/02/2016 Inactive Fioricet 50 mg-325 mg-40 mg tablet RxNorm: 378515 Tablet(s) TAKE ONE TABLET BY MOUTH EVERY 4 HOURS NEEDED FOR headache 02/12/2016 02/24/2016 Inactive (Response to an electronic controlled substance refill request - RxReferenceNumber: [id number]) Fioricet 50 mg-325 mg-40 mg tablet RxNorm: 596929 Tablet(s) TAKE ONE TABLET BY MOUTH EVERY 4 HOURS NEEDED FOR headache 02/12/2016 02/11/2016 Inactive (Response to an electronic controlled substance refill request - RxReferenceNumber: [id number]) Nexium 40 mg capsule,delayed release RxNorm: 700751 TAKE ONE CAPSULE BY MOUTH EVERY DAY 02/01/2016 10/27/2016 Inactive Bystolic 10 mg tablet RxNorm: 865521 Tablet(s) TAKE ONE TABLET BY MOUTH DAILY 01/06/2016 07/03/2016 Inactive Xanax 0.25 mg tablet RxNorm: 240333 1 Tablet(s) PO daily as needed 12/28/2015 02/23/2016 Inactive Levaquin 500 mg tablet RxNorm: 144222 1 Tablet(s) PO daily take a probiotic daily 12/14/2015 02/11/2016 Inactive Levaquin 500 mg tablet RxNorm: 618089 1 Tablet(s) PO daily take a probiotic daily 12/14/2015 12/13/2015 Inactive prednisone 20 mg tablet RxNorm: 139535 1 Tablet(s) PO BID 12/07/2015 12/13/2015 Inactive Augmentin 875 mg-125 mg tablet RxNorm: 561225 1 Tablet(s) PO BID 12/07/2015 12/13/2015 Inactive ceftriaxone 500 mg solution for injection RxNorm: 1013259 Inj 12/07/2015 12/07/2015 Inactive Phenergan with Codeine Syrup RxNorm: 5-10 Milliliter(s) PO Q6 PRN 12/07/2015 06/26/2017 Inactive alprazolam 0.25 mg tablet RxNorm: 153625 1 Tablet(s) PO daily as needed 11/27/2015 12/25/2015 Inactive (Response to an electronic controlled substance refill request - RxReferenceNumber: [id number]) trazodone 50 mg tablet RxNorm: 137904 TAKE 1 AND 1/2 TABLET AT BEDTIME FOR 2 WEEKS, MAY INCREASE TO 2 TABLETS IF NECESSARY AFTER THAT 11/26/2015 02/24/2016 Inactive ceftriaxone 500 mg solution for injection RxNorm: 8993145 Milliliter(s) Inj 11/24/2015 11/24/2015 Inactive prednisone 10 mg tablet RxNorm: 575389 3 Tablet(s) PO daily 11/24/2015 11/28/2015 Inactive cefdinir 300 mg capsule RxNorm: 719729 1 Capsule(s) PO BID 11/24/2015 11/30/2015 Inactive Kenalog 40 mg/mL suspension for injection RxNorm: 5565043 1 Milliliter(s) Inj 11/24/2015 11/24/2015 Inactive Lexapro 20 mg tablet RxNorm: 596962 TAKE 1/2 TABLET BY MOUTH DAILY FOR 10 DAYS, THEN TAKE ONE TABLET BY MOUTH DAILY 11/23/2015 05/20/2016 Inactive Lipitor 10 mg tablet RxNorm: 239106 Tablet(s) TAKE ONE TABLET BY MOUTH EVERY DAY 10/26/2015 11/06/2016 Inactive Norvasc 10 mg tablet RxNorm: 402874 Tablet(s) PO TAKE ONE TABLET BY MOUTH EVERY DAY 10/26/2015 01/18/2018 Inactive hydrochlorothiazide 25 mg tablet RxNorm: 421729 TAKE ONE TABLET BY MOUTH DAILY 10/20/2015 01/17/2016 Inactive promethazine 25 mg/mL injection solution RxNorm: 387411 Milliliter(s) Inj 08/27/2015 08/27/2015 Inactive ketorolac 60 mg/2 mL intramuscular solution RxNorm: 859940 Milliliter(s) IM 08/27/2015 08/27/2015 Inactive alprazolam 0.25 mg tablet RxNorm: 731700 1 Tablet(s) PO daily as needed 08/27/2015 10/25/2017 Inactive (Response to an electronic controlled substance refill request - RxReferenceNumber: [id number]) Lexapro 20 mg tablet RxNorm: 775951 TAKE 1/2 TABLET BY MOUTH DAILY FOR 10 DAYS, THEN TAKE ONE TABLET BY MOUTH DAILY 08/13/2015 11/10/2015 Inactive Flonase 50 mcg/actuation nasal spray,suspension RxNorm: 465053 PLACE 1 SPRAY IN EACH NOSTRIL DAILY 08/13/2015 02/08/2016 Inactive Augmentin 500 mg-125 mg tablet RxNorm: 837976 1 Tablet(s) PO TID 08/10/2015 08/16/2015 Inactive Kenalog 40 mg/mL suspension for injection RxNorm: 1129885 Milliliter(s) Inj 08/10/2015 08/10/2015 Inactive ceftriaxone 500 mg solution for injection RxNorm: 7074316 Inj 08/10/2015 08/10/2015 Inactive nystatin 100,000 unit/mL oral suspension RxNorm: 880674 4 Milliliter(s) PO QID 08/10/2015 08/16/2015 Inactive trazodone 50 mg tablet RxNorm: 358300 TAKE 1 AND 1/2 TABLET AT BEDTIME FOR 2 WEEKS, MAY INCREASE TO 2 TABLETS IF NECESSARY AFTER THAT 07/31/2015 11/25/2015 Inactive ceftriaxone 500 mg solution for injection RxNorm: 3579115 1 Milliliter(s) Inj 07/28/2015 07/28/2015 Inactive Bactrim DS 800 mg-160 mg tablet RxNorm: 773868 1 Tablet(s) PO BID 07/28/2015 08/06/2015 Inactive Bactroban 2 % topical ointment RxNorm: 563360 1 Application TOP BID 07/28/2015 08/06/2015 Inactive Diflucan 150 mg tablet RxNorm: 304088 1 Tablet(s) PO daily 06/11/2015 06/17/2015 Inactive clotrimazole 1 % topical cream RxNorm: 722152 1 Application TOP BID 06/11/2015 07/10/2015 Inactive Bystolic 10 mg tablet RxNorm: 323872 TAKE ONE TABLET BY MOUTH DAILY 06/08/2015 12/04/2015 Inactive alprazolam 0.25 mg tablet RxNorm: 968860 1 Tablet(s) PO daily as needed 06/01/2015 08/25/2015 Inactive (Response to an electronic controlled substance refill request - RxReferenceNumber: [id number]) Fioricet 50 mg-325 mg-40 mg tablet RxNorm: 985217 Tablet(s) TAKE ONE TABLET BY MOUTH EVERY 4 HOURS NEEDED FOR headache 05/28/2015 06/08/2015 Inactive (Response to an electronic controlled substance refill request - RxReferenceNumber: [id number]) trazodone 50 mg tablet RxNorm: 141442 TAKE 1 AND 1/2 TABLET AT BEDTIME FOR 2 WEEKS, MAY INCREASE TO 2 TABLETS IF NECESSARY AFTER THAT 05/25/2015 08/22/2015 Inactive trazodone 50 mg tablet RxNorm: 622454 TAKE 1 AND 1/2 TABLET AT BEDTIME FOR 2 WEEKS, MAY INCREASE TO 2 TABLETS IF NECESSARY AFTER THAT 05/25/2015 05/24/2015 Inactive Synthroid 100 mcg tablet RxNorm: 938518 TAKE ONE TABLET BY MOUTH DAILY 04/23/2015 01/17/2016 Inactive Lipitor 10 mg tablet RxNorm: 645741 TAKE ONE TABLET BY MOUTH EVERY DAY 04/23/2015 10/25/2015 Inactive Kenalog 40 mg/mL suspension for injection RxNorm: 3085022 Milliliter(s) Inj 03/19/2015 03/19/2015 Inactive Lexapro 20 mg tablet RxNorm: 425082 1 Tablet(s) PO daily 03/19/2015 07/16/2015 Inactive 1/2 tab daily x 10 days then 1 tab daily hydrocodone 10 mg-acetaminophen 325 mg tablet RxNorm: 058166 Tablet(s) PO TAKE ONE TO TWO TABLETS BY MOUTH EVERY 6 HOURS NEEDED FOR PAIN 03/19/2015 06/06/2016 Inactive (Appended: Controlled substance eRx refill - RxReferenceNumber: [id number]) Carafate 1 gram tablet RxNorm: 982279 1 Tablet(s) PO AC & HS 03/19/2015 06/16/2015 Inactive dissolve in water and take as a slurry hydrochlorothiazide 25 mg tablet RxNorm: 324598 1 Tablet(s) PO daily 03/12/2015 09/07/2015 Inactive Nexium 40 mg capsule,delayed release RxNorm: 129358 TAKE ONE CAPSULE BY MOUTH EVERY DAY 02/26/2015 12/22/2015 Inactive Cymbalta 60 mg capsule,delayed release RxNorm: 369139 TAKE ONE CAPSULE BY MOUTH TWICE A DAY 02/23/2015 03/18/2015 Inactive alprazolam 0.25 mg tablet RxNorm: 371846 1 Tablet(s) PO daily as needed 02/11/2015 05/10/2015 Inactive (Response to an electronic controlled substance refill request - RxReferenceNumber: [id number]) trazodone 50 mg tablet RxNorm: 748296 TAKE 1 AND 1/2 TABLET AT BEDTIME FOR 2 WEEKS, MAY INCREASE TO 2 TABLETS IF NECESSARY AFTER THAT 01/27/2015 05/24/2015 Inactive Augmentin 500 mg-125 mg tablet RxNorm: 755323 1 Tablet(s) PO TID 01/07/2015 01/13/2015 Inactive gentamicin 0.3 % eye drops RxNorm: 998000 3 Drop(s) OPH QID 01/07/2015 01/13/2015 Inactive [AttnRPh: Saving apply/adjudicate RxGRP:[id number] RxBIN:[id number] RxPCN: ID#:[id number]] scopolamine 1.5 mg transdermal 72 hour patch RxNorm: 712996 1 Patch TD q72 hours 01/07/2015 11/23/2015 Inactive Synthroid 100 mcg tablet RxNorm: 265314 TAKE ONE TABLET BY MOUTH ONCE A DAY 01/06/2015 04/22/2015 Inactive nystatin 100,000 unit/gram topical powder RxNorm: 816428 APPLY TOPICALLY TWO TIMES A DAY 12/18/2014 03/17/2015 Inactive alprazolam 0.25 mg tablet RxNorm: 524282 TAKE ONE TABLET BY MOUTH DAILY NEEDED 10/30/2014 11/28/2014 Inactive (Response to an electronic controlled substance refill request - RxReferenceNumber: [id number]) alprazolam 0.25 mg tablet RxNorm: 854755 Tablet(s) TAKE ONE TABLET BY MOUTH DAILY 10/30/2014 10/29/2014 Inactive (Response to an electronic controlled substance refill request - RxReferenceNumber: [id number]) Lipitor 10 mg tablet RxNorm: 046310 TAKE ONE TABLET BY MOUTH EVERY DAY 10/30/2014 02/26/2015 Inactive alprazolam 0.25 mg tablet RxNorm: 824693 TAKE ONE TABLET BY MOUTH DAILY 10/07/2014 10/29/2014 Inactive (Response to an electronic controlled substance refill request - RxReferenceNumber: [id number]) alprazolam 0.25 mg tablet RxNorm: 664881 TAKE ONE TABLET BY MOUTH DAILY 10/06/2014 10/07/2014 Inactive (Response to an electronic controlled substance refill request - RxReferenceNumber: [id number]) alprazolam 0.25 mg tablet RxNorm: 151780 Tablet(s) TAKE ONE TABLET BY MOUTH EVERY DAY NEEDED 09/30/2014 10/06/2014 Inactive (Response to an electronic controlled substance refill request - RxReferenceNumber: [id number]) Fioricet 50 mg-325 mg-40 mg tablet RxNorm: 543935 Tablet(s) TAKE ONE TABLET BY MOUTH EVERY 4 HOURS NEEDED FOR headache 09/29/2014 10/12/2014 Inactive (Response to an electronic controlled substance refill request - RxReferenceNumber: [id number]) Bystolic 10 mg tablet RxNorm: 472142 1 Tablet(s) PO daily TAKE ONE TABLET BY MOUTH EVERY DAY 09/29/2014 04/26/2015 Inactive Bystolic 5 mg tablet RxNorm: 852255 TAKE 1 AND 1/2 TABLETS ONCE DAILY 09/24/2014 09/23/2014 Inactive Bystolic 5 mg tablet RxNorm: 169073 Tablet(s) TAKE 1 AND 1/2 TABLETS ONCE DAILY 09/24/2014 09/18/2015 Inactive gentamicin 0.3 % eye drops RxNorm: 818388 3 Drop(s) OPH QID 09/23/2014 09/29/2014 Inactive trazodone 50 mg tablet RxNorm: 320146 TAKE 1 AND 1/2 TABLET AT BEDTIME FOR 2 WEEKS, MAY INCREASE TO 2 TABLETS IF NECESSARY AFTER THAT 09/22/2014 01/26/2015 Inactive Fioricet 50 mg-325 mg-40 mg tablet RxNorm: 983064 TAKE ONE TABLET BY MOUTH EVERY 4 HOURS NEEDED FOR PAIN 09/17/2014 09/28/2014 Inactive (Response to an electronic controlled substance refill request - RxReferenceNumber: [id number]) Duragesic 50 mcg/hr transdermal patch RxNorm: 430365 1 TD q72 hours 08/07/2014 01/06/2015 Inactive [SAVINGS FOR UNINSURED PATIENTS -- BIN:[id number], PCN: ASPROD1, Group: [id number], ID# [id number], Process claim through iMusicTweet, for questions: . THIS IS NOT INSURANCE.] alprazolam 0.25 mg tablet RxNorm: 248350 TAKE ONE TABLET BY MOUTH EVERY DAY NEEDED 07/31/2014 08/29/2014 Inactive (Response to an electronic controlled substance refill request - RxReferenceNumber: [id number]) alprazolam 0.25 mg tablet RxNorm: 822846 1 Tablet(s) PO daily as needed TAKE ONE TABLET BY MOUTH EVERY DAY NEEDED 07/30/2014 08/01/2014 Inactive (Response to an electronic controlled substance refill request - RxReferenceNumber: [id number]) Diflucan 150 mg tablet RxNorm: 021142 1 Tablet(s) PO daily 06/25/2014 07/01/2014 Inactive [SAVINGS FOR UNINSURED PATIENTS -- BIN:[id number], PCN: ASPROD1, Group: [id number], ID# [id number], Process claim through iMusicTweet, for questions: . THIS IS NOT INSURANCE.] Kenalog 40 mg/mL suspension for injection RxNorm: 7315835 Milliliter(s) Inj 06/23/2014 06/23/2014 Inactive [SAVINGS FOR UNINSURED PATIENTS -- BIN:022040, PCN: ASPROD1, Group: [id number], ID# [id number], Process claim through MedImpact, for questions: . THIS IS NOT INSURANCE.] ceftriaxone 500 mg solution for injection RxNorm: 542892 Inj 06/23/2014 06/23/2014 Inactive [SAVINGS FOR UNINSURED PATIENTS -- BIN:477492, PCN: ASPROD1, Group: [id number], ID# [id number], Process claim through MedImpact, for questions: . THIS IS NOT INSURANCE.] Levaquin 500 mg tablet RxNorm: 394351 1 Tablet(s) PO daily 06/23/2014 07/13/2014 Inactive [SAVINGS FOR UNINSURED PATIENTS -- BIN:780618, PCN: ASPROD1, Group: [id number], ID# [id number], Process claim through MedImpact, for questions: . THIS IS NOT INSURANCE.] Duragesic 50 mcg/hr transdermal patch RxNorm: 906523 1 TD q72 hours 06/05/2014 08/06/2014 Inactive [SAVINGS FOR UNINSURED PATIENTS -- BIN:172777, PCN: ASPROD1, Group: [id number], ID# [id number], Process claim through MedImpact, for questions: . THIS IS NOT INSURANCE.] alprazolam 0.25 mg tablet RxNorm: 695405 1 Tablet(s) PO daily as needed TAKE ONE TABLET BY MOUTH EVERY DAY NEEDED 06/02/2014 07/29/2014 Inactive (Response to an electronic controlled substance refill request - RxReferenceNumber: [id number]) nystatin 100,000 unit/gram topical powder RxNorm: 189582 APPLY TO AFFECTED AREA(S) TWO TIMES A DAY 05/01/2014 06/14/2014 Inactive hydrochlorothiazide 25 mg tablet RxNorm: 326988 TAKE ONE TABLET BY MOUTH EVERY DAY MUST CALL MD FOR APPOINTMENT 04/24/2014 10/20/2014 Inactive alprazolam 0.25 mg tablet RxNorm: 645831 Tablet(s) TAKE ONE TABLET BY MOUTH EVERY DAY NEEDED 04/16/2014 06/02/2014 Inactive (Response to an electronic controlled substance refill request - RxReferenceNumber: [id number]) alprazolam 0.25 mg tablet RxNorm: 300386 TAKE ONE TABLET BY MOUTH EVERY DAY NEEDED 04/16/2014 05/15/2014 Inactive (Response to an electronic controlled substance refill request - RxReferenceNumber: [id number]) alprazolam 0.25 mg tablet RxNorm: 683049 TAKE ONE TABLET BY MOUTH EVERY DAY NEEDED 04/16/2014 05/15/2014 Inactive (Response to an electronic controlled substance refill request - RxReferenceNumber: [id number]) alprazolam 0.25 mg tablet RxNorm: 838639 TAKE ONE TABLET BY MOUTH EVERY DAY NEEDED 04/14/2014 04/16/2014 Inactive (Response to an electronic controlled substance refill request - RxReferenceNumber: [id number]) Lipitor 10 mg tablet RxNorm: 045732 TAKE ONE TABLET BY MOUTH EVERY DAY 04/14/2014 09/10/2014 Inactive alprazolam 0.25 mg tablet RxNorm: 302169 TAKE ONE TABLET BY MOUTH EVERY DAY NEEDED 04/14/2014 04/14/2014 Inactive (Response to an electronic controlled substance refill request - RxReferenceNumber: [id number]) alprazolam 0.25 mg tablet RxNorm: 663100 TAKE ONE TABLET BY MOUTH EVERY DAY NEEDED 04/14/2014 04/15/2014 Inactive (Response to an electronic controlled substance refill request - RxReferenceNumber: [id number]) alprazolam 0.25 mg tablet RxNorm: 161599 TAKE ONE TABLET BY MOUTH EVERY DAY NEEDED 04/14/2014 04/14/2014 Inactive (Response to an electronic controlled substance refill request - RxReferenceNumber: [id number]) nystatin 100,000 unit/gram topical powder RxNorm: 601618 1 Application TOP BID 04/03/2014 07/01/2014 Inactive [SAVINGS FOR UNINSURED PATIENTS -- BIN:527892, PCN: ASPROD1, Group: [id number], ID# [id number], Process claim through iMusicTweet, for questions: . THIS IS NOT INSURANCE.] Keflex 500 mg capsule RxNorm: 030295 1 Capsule(s) PO QID 04/03/2014 04/09/2014 Inactive [SAVINGS FOR UNINSURED PATIENTS -- BIN:183437, PCN: ASPROD1, Group: [id number], ID# [id number], Process claim through MedImpact, for questions: . THIS IS NOT INSURANCE.] Synthroid 100 mcg tablet RxNorm: 537949 1 Tablet(s) PO daily TAKE ONE TABLET BY MOUTH EVERY DAY 04/01/2014 01/05/2015 Inactive [SAVINGS FOR UNINSURED PATIENTS -- BIN:660797, PCN: ASPROD1, Group: [id number], ID# [id number], Process claim through MedImpact, for questions: . THIS IS NOT INSURANCE.] Duragesic 50 mcg/hr transdermal patch RxNorm: 620872 1 TD q72 hours 03/24/2014 06/04/2014 Inactive [SAVINGS FOR UNINSURED PATIENTS -- BIN:168432, PCN: ASPROD1, Group: AME08, ID# [id number], Process claim through MedImpact, for questions: . THIS IS NOT INSURANCE.] trazodone 50 mg tablet RxNorm: 039053 TAKE 1 AND 1/2 TABLET AT BEDTIME FOR 2 WEEKS, MAY INCREASE TO 2 TABLETS IF NECESSARY AFTER THAT 03/18/2014 09/13/2014 Inactive nystatin 100,000 unit/gram topical powder RxNorm: 760271 1 Application TOP BID 03/07/2014 03/16/2014 Inactive [SAVINGS FOR UNINSURED PATIENTS -- BIN:632610, PCN: ASPROD1, Group: AME08, ID# [id number], Process claim through MedImpact, for questions: . THIS IS NOT INSURANCE.] permethrin 5 % topical cream RxNorm: 266802 1 Application TOP daily 03/07/2014 11/23/2015 Inactive apply head to toe-leave on overnight and wash off in the a.m. May repeat x 1 if needed Diflucan 150 mg tablet RxNorm: 410151 1 Tablet(s) PO daily 03/07/2014 03/09/2014 Inactive [SAVINGS FOR UNINSURED PATIENTS -- BIN:399487, PCN: ASPROD1, Group: AME08, ID# [id number], Process claim through [email or web address], for questions: . THIS IS NOT INSURANCE.] hydrochlorothiazide 25 mg tablet RxNorm: 431384 TAKE ONE TABLET BY MOUTH EVERY DAY MUST CALL MD FOR APPOINTMENT 03/06/2014 04/23/2014 Inactive Zithromax Z-Sergio 250 mg tablet RxNorm: 474543 Tablet(s) PO as directed 03/04/2014 11/23/2015 Inactive [SAVINGS FOR UNINSURED PATIENTS -- BIN:727966, PCN: ASPROD1, Group: [id number], ID# [id number], Process claim through MedImpact, for questions: . THIS IS NOT INSURANCE.] Flonase 50 mcg/actuation nasal spray,suspension RxNorm: 934937 1 [place] NASAL daily 03/04/2014 07/01/2014 Inactive [SAVINGS FOR UNINSURED PATIENTS -- BIN:817639, PCN: ASPROD1, Group: [id number], ID# [id number], Process claim through MedImpact, for questions: . THIS IS NOT INSURANCE.] alprazolam 0.25 mg tablet RxNorm: 048747 1 Tablet(s) PO PRN TAKE ONE TABLET BY MOUTH EVERY DAY NEEDED 02/25/2014 04/14/2014 Inactive (Appended: Controlled substance eRx refill - RxReferenceNumber: [id number]) alprazolam 0.25 mg tablet RxNorm: 219200 TAKE ONE TABLET BY MOUTH EVERY DAY NEEDED 02/21/2014 03/22/2014 Inactive (Response to an electronic controlled substance refill request - RxReferenceNumber: [id number]) alprazolam 0.25 mg tablet RxNorm: 419856 TAKE ONE TABLET BY MOUTH EVERY DAY NEEDED 02/21/2014 03/22/2014 Inactive (Response to an electronic controlled substance refill request - RxReferenceNumber: [id number]) alprazolam 0.25 mg tablet RxNorm: 481902 TAKE ONE TABLET BY MOUTH EVERY DAY NEEDED 02/18/2014 03/19/2014 Inactive (Response to an electronic controlled substance refill request - RxReferenceNumber: [id number]) Cymbalta 60 mg capsule,delayed release RxNorm: 944967 TAKE ONE CAPSULE BY MOUTH TWICE A DAY 02/18/2014 01/13/2015 Inactive Nexium 40 mg capsule,delayed release RxNorm: 392090 TAKE ONE CAPSULE BY MOUTH EVERY DAY 02/18/2014 01/13/2015 Inactive Bactrim DS 800 mg-160 mg tablet RxNorm: 442453 1 Tablet(s) PO BID 02/13/2014 02/19/2014 Inactive probiotic while one antibiotic Bactrim DS 800 mg-160 mg tablet RxNorm: 113400 1 Tablet(s) PO BID 02/13/2014 02/12/2014 Inactive hydrocodone 10 mg-acetaminophen 325 mg tablet RxNorm: 178680 Tablet(s) PO TAKE ONE TO TWO TABLETS BY MOUTH EVERY 6 HOURS NEEDED FOR PAIN 02/06/2014 03/18/2015 Inactive (Appended: Controlled substance eRx refill - RxReferenceNumber: [id number]) Abilify 2 mg tablet RxNorm: 844929 Tablet(s) PO TAKE ONE TABLET BY MOUTH EVERY NIGHT AT BEDTIME 02/03/2014 03/19/2015 Inactive Duragesic 50 mcg/hr transdermal patch RxNorm: 406992 1 TD q72 hours 01/14/2014 03/23/2014 Inactive alprazolam 0.25 mg tablet RxNorm: 862327 1 Tablet(s) PO QDAY PRN 01/14/2014 02/12/2014 Inactive alprazolam 0.25 mg tablet RxNorm: 247413 Tablet(s) PO TAKE ONE TABLET BY MOUTH EVERY DAY NEEDED 01/14/2014 02/24/2014 Inactive (Appended: Controlled substance eRx refill - RxReferenceNumber: [id number]) Lipitor 10 mg tablet RxNorm: 089326 Tablet(s) PO TAKE ONE TABLET BY MOUTH EVERY DAY 01/14/2014 04/13/2014 Inactive Synthroid 100 mcg tablet RxNorm: 092523 Tablet(s) PO TAKE ONE TABLET BY MOUTH EVERY DAY 2013 03/31/2014 Inactive Fioricet 50 mg-325 mg-40 mg tablet RxNorm: 719585 Tablet(s) PO TAKE ONE TABLET BY MOUTH EVERY 4 HOURS NEEDED FOR PAIN 11/27/2013 09/17/2014 Inactive Fioricet 50 mg-325 mg-40 mg tablet RxNorm: 062004 Tablet(s) PO TAKE ONE TABLET BY MOUTH EVERY 4 HOURS NEEDED FOR PAIN 11/25/2013 11/26/2013 Inactive Zithromax Z-Sergio 250 mg tablet RxNorm: 297696 Tablet(s) PO as directed 11/11/2013 01/13/2014 Inactive Bystolic 10 mg tablet RxNorm: 867197 Tablet(s) PO TAKE ONE TABLET BY MOUTH EVERY DAY 10/21/2013 09/28/2014 Inactive Abilify 2 mg tablet RxNorm: 931492 1 Tablet(s) PO QHS 09/25/2013 01/22/2014 Inactive Synthroid 100 mcg tablet RxNorm: 492409 Tablet(s) PO TAKE ONE TABLET BY MOUTH EVERY DAY 09/24/2013 12/25/2013 Inactive Abilify 2 mg tablet RxNorm: 464016 1 Tablet(s) PO QHS 09/24/2013 09/24/2013 Inactive Rocephin 500 mg solution for injection RxNorm: 647929 1ml Milliliter(s) Inj 09/24/2013 09/24/2013 Inactive Rocephin 500 mg solution for injection RxNorm: 007693 1 Milliliter(s) Inj 09/19/2013 09/19/2013 Inactive Bystolic 5 mg tablet RxNorm: 970915 1 1/2 Tablet(s) PO daily 09/17/2013 03/15/2014 Inactive 1 1/2 daily may have 90 day if cheaper Bystolic 5 mg tablet RxNorm: 006290 1 1/2 Tablet(s) PO daily 09/17/2013 09/16/2013 Inactive 1 1/2 daily Lipitor 10 mg tablet RxNorm: 763365 Tablet(s) PO TAKE ONE TABLET BY MOUTH EVERY DAY 09/12/2013 01/13/2014 Inactive hydrocodone 10 mg-acetaminophen 325 mg tablet RxNorm: 008420 Tablet(s) PO TAKE ONE TO TWO TABLETS BY MOUTH EVERY 6 HOURS NEEDED FOR PAIN 09/09/2013 10/29/2017 Inactive (Appended: Controlled substance eRx refill - RxReferenceNumber: [id number]) hydrocodone 10 mg-acetaminophen 325 mg tablet RxNorm: 521706 1 Tablet(s) PO Q6 PRN 09/09/2013 02/06/2014 Inactive hydrocodone 10 mg-acetaminophen 325 mg tablet RxNorm: 580947 Tablet(s) PO TAKE ONE TO TWO TABLETS BY MOUTH EVERY 6 HOURS NEEDED FOR PAIN 09/06/2013 10/29/2017 Inactive (Appended: Controlled substance eRx refill - RxReferenceNumber: [id number]) Norvasc 10 mg tablet RxNorm: 455042 Tablet(s) PO TAKE ONE TABLET BY MOUTH EVERY DAY 09/05/2013 10/25/2015 Inactive trazodone 50 mg tablet RxNorm: 691633 1 1/2 Tablet(s) PO QHS 09/03/2013 03/17/2014 Inactive 75q hs x 2 week may increase to 100mg if nec after that nystatin 100,000 unit/mL oral suspension RxNorm: 698266 6 Milliliter(s) PO QID 08/06/2013 08/15/2013 Inactive Flonase 50 mcg/actuation nasal spray,suspension RxNorm: 020442 2 [place] NASAL daily 08/06/2013 03/03/2014 Inactive nystatin 100,000 unit/mL oral suspension RxNorm: 056894 6 Unit(s) PO QID 08/05/2013 08/05/2013 Inactive Phenergan with Codeine Syrup RxNorm: 5 Milliliter(s) PO Q4 PRN 08/05/2013 12/02/2013 Inactive 8 ounces alprazolam 0.25 mg tablet RxNorm: 562903 1 Tablet(s) PO QDAY PRN 07/29/2013 01/14/2014 Inactive Diflucan 150 mg tablet RxNorm: 240743 1 Tablet(s) PO daily 07/24/2013 07/26/2013 Inactive hydrochlorothiazide 25 mg tablet RxNorm: 257905 Tablet(s) PO TAKE ONE TABLET BY MOUTH EVERY DAY MUST CALL FOR APPOINTMENT 07/19/2013 03/05/2014 Inactive Phenergan with Codeine Syrup RxNorm: 10 Milliliter(s) PO Q4 PRN 07/10/2013 08/04/2013 Inactive 8 ounces Rocephin 500 mg solution for injection RxNorm: 0765931 1 Inj 07/10/2013 07/10/2013 Inactive cefdinir 300 mg capsule RxNorm: 502620 1 Capsule(s) PO BID 07/10/2013 07/16/2013 Inactive prednisone 10 mg tablet RxNorm: 526427 3 Tablet(s) PO daily 07/10/2013 07/14/2013 Inactive Carafate 100 mg/mL oral suspension RxNorm: 200459 10 Milliliter(s) PO Q6 PRN pt to take carafate 10mL every 6 hours as needed. 07/10/2013 08/05/2014 Inactive Kenalog 40 mg/mL suspension for injection RxNorm: 7193353 1 Milliliter(s) Inj 07/10/2013 07/10/2013 Inactive trazodone 50 mg tablet RxNorm: 440394 1 Tablet(s) PO QHS 07/10/2013 09/02/2013 Inactive sulfamethoxazole 800 mg-trimethoprim 160 mg tablet RxNorm: 361075 1 Tablet(s) PO BID 06/03/2013 06/12/2013 Inactive Synthroid 125 mcg tablet RxNorm: 346403 1 Tablet(s) PO daily 05/07/2013 09/23/2013 Inactive Bystolic 10 mg tablet RxNorm: 301178 1.5 Tablet(s) PO daily 05/07/2013 09/03/2013 Inactive Voltaren 1 % Topical Gel RxNorm: 593351 4 Gram(s) TOP QID apply 4 grams to knees, 2 grams to hands and ankles four times daily. 05/07/2013 09/03/2013 Inactive hydrocodone 10 mg-acetaminophen 325 mg tablet RxNorm: 158380 1 Tablet(s) PO Q6 PRN 04/23/2013 09/09/2013 Inactive Norvasc 10 mg tablet RxNorm: 482446 Tablet(s) PO TAKE ONE TABLET BY MOUTH EVERY DAY 04/23/2013 09/04/2013 Inactive alprazolam 0.25 mg tablet RxNorm: 607089 1 Tablet(s) PO QDAY PRN 03/25/2013 07/22/2013 Inactive Bystolic 10 mg tablet RxNorm: 284851 1 Tablet(s) PO daily TAKE ONE TABLET BY MOUTH EVERY DAY 03/25/2013 05/06/2013 Inactive zolpidem 10 mg tablet RxNorm: 915250 1 Tablet(s) PO HS PRN 03/25/2013 07/09/2013 Inactive gentamicin 0.3 % Eye Drops RxNorm: 068214 3 Drop(s) OPH QID three gtts to each eye QID x 7 days 03/11/2013 03/10/2013 Inactive gentamicin 0.3 % eye drops RxNorm: 923391 3 Drop(s) OPH QID three gtts to each eye QID x 7 days 03/11/2013 03/17/2013 Inactive Nexium 40 mg capsule,delayed release RxNorm: 329435 Capsule(s) PO TAKE ONE CAPSULE BY MOUTH EVERY DAY 02/15/2013 02/17/2014 Inactive Cymbalta 60 mg capsule,delayed release RxNorm: 660583 Capsule(s) PO TAKE ONE CAPSULE BY MOUTH TWICE A DAY 02/15/2013 02/17/2014 Inactive hydrocodone 10 mg-acetaminophen 325 mg tablet RxNorm: 1298034 1 Tablet(s) PO Q6 PRN 01/22/2013 04/22/2013 Inactive Lipitor 10 mg tablet RxNorm: 610841 Tablet(s) PO TAKE ONE TABLET BY MOUTH EVERY DAY 01/07/2013 09/11/2013 Inactive Cymbalta 60 mg capsule,delayed release RxNorm: 421798 Capsule(s) PO TAKE ONE CAPSULE BY MOUTH TWICE A DAY 01/02/2013 02/14/2013 Inactive Synthroid 100 mcg tablet RxNorm: 322681 1 Tablet(s) PO 12/03/2012 05/06/2013 Inactive Enablex 7.5 mg tablet,extended release RxNorm: 935328 1 Tablet(s) PO daily 11/28/2012 11/27/2012 Inactive Enablex 7.5 mg tablet,extended release RxNorm: 191440 1 Tablet(s) PO daily 11/28/2012 11/28/2012 Inactive scopolamine 1.5 mg 72 hr Transderm Patch RxNorm: 970861 1 Milligram(s) TD q72 hours 11/26/2012 05/06/2013 Inactive hydrochlorothiazide 25 mg tablet RxNorm: 582120 Tablet(s) PO TAKE ONE TABLET BY MOUTH EVERY DAY MUST CALL MD FOR APPOINTMENT 11/24/2012 07/18/2013 Inactive Cymbalta 60 mg capsule,delayed release RxNorm: 523707 Capsule(s) PO TAKE ONE CAPSULE BY MOUTH TWICE A DAY 10/26/2012 01/01/2013 Inactive Bystolic 10 mg tablet RxNorm: 665387 Tablet(s) PO TAKE ONE TABLET BY MOUTH EVERY DAY 10/12/2012 03/25/2013 Inactive zolpidem 10 mg tablet RxNorm: 653913 1 Tablet(s) PO HS PRN 10/02/2012 01/29/2013 Inactive alprazolam 0.25 mg tablet RxNorm: 951384 1 Tablet(s) PO QDAY PRN 10/02/2012 01/29/2013 Inactive Kenalog 40 mg/mL Susp for Injection RxNorm: 9273159 1 Milliliter(s) Inj 09/24/2012 09/24/2012 Inactive Diflucan 150 mg tablet RxNorm: 428809 1 Tablet(s) PO daily 09/24/2012 09/30/2012 Inactive acyclovir 400 mg tablet RxNorm: 556893 1 Tablet(s) PO QID 09/24/2012 10/08/2012 Inactive Cipro 500 mg tablet RxNorm: 723212 1 Tablet(s) PO BID 09/24/2012 09/30/2012 Inactive Tamiflu 75 mg capsule RxNorm: 246344 1 Capsule(s) PO BID 09/17/2012 09/16/2012 Inactive Tamiflu 75 mg capsule RxNorm: 454406 1 Capsule(s) PO BID 09/17/2012 09/16/2012 Inactive Tamiflu 75 mg capsule RxNorm: 182401 1 Capsule(s) PO BID please disregard order for #14 09/17/2012 09/21/2012 Inactive fluconazole 150 mg tablet RxNorm: 810185 1 Tablet(s) PO daily 09/10/2012 09/13/2012 Inactive ketoconazole 2 % Topical Cream RxNorm: 135061 Application TOP BID apply to affected area BID until gone 08/31/2012 11/01/2017 Inactive Norvasc 10 mg tablet RxNorm: 388757 Tablet(s) PO TAKE ONE TABLET BY MOUTH EVERY DAY 08/29/2012 04/22/2013 Inactive Cipro 500 mg tablet RxNorm: 966268 1 Tablet(s) PO BID 08/17/2012 08/26/2012 Inactive Flagyl 500 mg tablet RxNorm: 807143 1 Tablet(s) PO TID 08/17/2012 08/23/2012 Inactive Cipro 500 mg tablet RxNorm: 474576 1 Tablet(s) PO BID 08/17/2012 08/16/2012 Inactive zolpidem 10 mg tablet RxNorm: 856758 1 Tablet(s) PO HS PRN 08/17/2012 09/15/2012 Inactive Flagyl 500 mg tablet RxNorm: 841549 1 Tablet(s) PO TID 08/17/2012 08/16/2012 Inactive alprazolam 0.25 mg tablet RxNorm: 842187 1 Tablet(s) PO QDAY PRN 08/17/2012 09/15/2012 Inactive [place] Allergy 180 mg tablet RxNorm: 800159 1 Tablet(s) PO daily 08/08/2012 02/03/2013 Inactive hydrochlorothiazide 25 mg tablet RxNorm: 035871 1/2 Tablet(s) PO daily 08/08/2012 11/05/2012 Inactive needs appt Carafate 1 gram tablet RxNorm: 584747 1 Tablet(s) PO QID mix with 10 cc water and dissolve into slurry 08/08/2012 08/21/2012 Inactive hydrocodone 10 mg-acetaminophen 325 mg tablet RxNorm: 1426578 1 Tablet(s) PO Q6 PRN 08/08/2012 01/21/2013 Inactive Synthroid 100 mcg tablet RxNorm: 230683 1 Tablet(s) PO 08/08/2012 12/02/2012 Inactive Cymbalta 60 mg capsule,delayed release RxNorm: 452134 Capsule(s) PO 07/23/2012 10/25/2012 Inactive TAKE ONE CAPSULE BY MOUTH TWICE A DAY Nexium 40 mg capsule,delayed release RxNorm: 191234 Capsule(s) PO 06/20/2012 02/14/2013 Inactive TAKE ONE CAPSULE BY MOUTH EVERY DAY Lipitor 10 mg tablet RxNorm: 899760 Tablet(s) PO 06/20/2012 01/06/2013 Inactive TAKE ONE TABLET BY MOUTH EVERY DAY hydrochlorothiazide 25 mg tablet RxNorm: 551350 1 Tablet(s) PO daily 06/19/2012 08/07/2012 Inactive needs appt alprazolam 0.25 mg tablet RxNorm: 978689 1 Tablet(s) PO QDAY PRN 06/05/2012 07/04/2012 Inactive zolpidem 10 mg tablet RxNorm: 630169 1 Tablet(s) PO HS PRN 06/05/2012 07/04/2012 Inactive zolpidem 10 mg tablet RxNorm: 117415 1 Tablet(s) PO HS PRN 04/16/2012 05/15/2012 Inactive alprazolam 0.25 mg tablet RxNorm: 266313 1 Tablet(s) PO QDAY PRN 04/16/2012 05/15/2012 Inactive Cymbalta 60 mg capsule,delayed release RxNorm: 940094 1 Capsule(s) PO BID 03/22/2012 07/19/2012 Inactive Fioricet 50 mg-325 mg-40 mg tablet RxNorm: 722221 1 Tablet(s) PO Q4 PRN 03/22/2012 11/24/2013 Inactive Bystolic 10 mg tablet RxNorm: 723651 Tablet(s) PO 03/22/2012 10/11/2012 Inactive TAKE ONE TABLET BY MOUTH EVERY DAY potassium chloride ER 10 mEq Tab RxNorm: 065766 1 Tablet(s) PO daily 02/24/2012 03/01/2012 Inactive Lasix 20 mg Tab RxNorm: 287745 1 Tablet(s) PO daily 02/22/2012 02/21/2012 Inactive KCL 10 meq RxNorm: 1 PO daily 02/22/2012 02/21/2012 Inactive potassium chloride ER 10 mEq Tab RxNorm: 983062 1 Tablet(s) PO daily 02/22/2012 02/21/2012 Inactive Lasix 20 mg Tab RxNorm: 552186 1 Tablet(s) PO daily 02/22/2012 02/28/2012 Inactive KCL 10 meq RxNorm: 1 PO daily 02/22/2012 02/22/2012 Inactive potassium chloride ER 10 mEq Tab RxNorm: 046889 1 Tablet(s) PO daily 02/22/2012 02/23/2012 Inactive Rocephin 500 mg Solution for Injection RxNorm: 8670881 Inj 02/15/2012 02/15/2012 Inactive Nexium 40 mg capsule,delayed release RxNorm: 754995 1 Capsule(s) PO daily 02/15/2012 No Stop Date Active Bystolic 10 mg Tab RxNorm: 446509 1 Tablet(s) PO daily 02/15/2012 08/12/2012 Inactive alprazolam 0.25 mg tablet RxNorm: 474329 1 Tablet(s) PO QDAY PRN 01/31/2012 02/29/2012 Inactive zolpidem 10 mg tablet RxNorm: 088656 1 Tablet(s) PO HS PRN 01/31/2012 02/29/2012 Inactive alprazolam 0.25 mg Tab RxNorm: 589367 1 Tablet(s) PO QDAY PRN 12/16/2011 01/14/2012 Inactive zolpidem 10 mg Tab RxNorm: 020811 1 Tablet(s) PO HS PRN 12/16/2011 01/14/2012 Inactive Norvasc 10 mg tablet RxNorm: 523865 1 Tablet(s) PO daily 12/02/2011 02/21/2012 Inactive Lipitor 10 mg tablet RxNorm: 585808 1 Tablet(s) PO daily 11/16/2011 05/13/2012 Inactive zolpidem 10 mg Tab RxNorm: 640130 1 Tablet(s) PO HS PRN 10/26/2011 12/15/2011 Inactive alprazolam 0.25 mg Tab RxNorm: 877655 1 Tablet(s) PO QDAY PRN 10/26/2011 12/15/2011 Inactive hydrochlorothiazide 25 mg tablet RxNorm: 971578 1 Tablet(s) PO daily 09/05/2011 03/02/2012 Inactive Synthroid 75 mcg tablet RxNorm: 349158 1 Tablet(s) PO daily 08/01/2011 02/26/2012 Inactive Abilify 2 mg Tab RxNorm: 458021 1 Tablet(s) PO QHS 08/01/2011 09/10/2012 Inactive dicyclomine 10 mg Cap RxNorm: 362277 1 Capsule(s) PO TID 08/01/2011 10/29/2011 Inactive alprazolam 0.25 mg Tab RxNorm: 976855 1 Tablet(s) PO QDAY PRN 07/26/2011 10/25/2011 Inactive Fioricet 50 mg-325 mg-40 mg tablet RxNorm: 936907 1 Tablet(s) PO Q4 PRN 07/14/2011 03/21/2012 Inactive Rocephin 500 mg Solution for Injection RxNorm: 1651726 1 Milliliter(s) Inj 07/14/2011 08/01/2011 Inactive Nexium 40 mg Capsule, delayed release RxNorm: 067356 1 Capsule(s) PO daily 05/23/2011 10/06/2011 Inactive Bystolic 10 mg tablet RxNorm: 578811 1 Tablet(s) PO daily 05/23/2011 11/18/2011 Inactive Bystolic 10 mg Tab RxNorm: 930112 1 Tablet(s) PO daily 05/23/2011 05/22/2011 Inactive alprazolam 0.25 mg Tab RxNorm: 583220 1 Tablet(s) PO QDAY PRN 05/23/2011 07/25/2011 Inactive Influenza Virus Vaccine 0.5 mL RxNorm: IM 05/23/2011 05/23/2011 Inactive zolpidem 10 mg Tab RxNorm: 521139 1 Tablet(s) PO HS PRN 05/23/2011 10/25/2011 Inactive Rocephin 500 mg Solution for Injection RxNorm: 0182207 1 Milliliter(s) Inj 05/03/2011 07/14/2011 Inactive Kenalog 40 mg/mL Susp for Injection RxNorm: 3699029 1 Milliliter(s) Inj 05/03/2011 07/14/2011 Inactive Bactrim DS 800 mg-160 mg Tab RxNorm: 270972 1 Tablet(s) PO BID 05/03/2011 08/01/2011 Inactive Bystolic 10 mg tablet RxNorm: 433767 1 Tablet(s) PO daily No Start Date Active Flonase 50 mcg/actuation nasal spray,suspension RxNorm: 3712736 2 [place] NASAL daily No Start Date 08/05/2013 Inactive Levaquin 500 mg tablet RxNorm: 877251 Tablet(s) PO No Start Date 04/19/2017 Inactive Duragesic 50 mcg/hr transdermal patch RxNorm: 123178 1 TD q72 hours No Start Date 01/13/2014 Inactive Vesicare 5 mg tablet RxNorm: 554131 1 Tablet(s) PO daily No Start Date 01/06/2015 Inactive Celebrex 200 mg capsule RxNorm: 980259 1 Capsule(s) PO daily No Start Date 04/02/2014 Inactive zolpidem 10 mg Tab RxNorm: 103130 1 Tablet(s) PO HS PRN No Start Date 05/22/2011 Inactive Zyrtec 10 mg Tab RxNorm: 7628673 1 Tablet(s) PO daily No Start Date 08/08/2012 Inactive Flonase 50 mcg/actuation nasal spray,suspension RxNorm: 7570199 1 [place] NASAL daily No Start Date 11/07/2017 Inactive 1 spray to each nostril daily Nexium 40 mg Cap RxNorm: 225954 1 Capsule(s) PO daily No Start Date 05/22/2011 Inactive ketoconazole 2 % Topical Cream RxNorm: 571581 Application TOP BID apply to affected area BID until gone No Start Date 08/30/2012 Inactive aspirin 81 mg tablet RxNorm: 629428 1 Tablet(s) PO daily No Start Date 11/13/2017 Inactive Cymbalta 60 mg capsule,delayed release RxNorm: 998489 1 Capsule(s) PO BID No Start Date 03/21/2012 Inactive alprazolam 0.25 mg Tab RxNorm: 612165 1 Tablet(s) PO QDAY PRN No Start Date 05/22/2011 Inactive baclofen 10 mg tablet RxNorm: 611756 1 Tablet(s) PO TID as needed muscle spasms No Start Date 11/14/2017 Inactive Toprol XL 100 mg 24 hr Tab RxNorm: 153240 1 Tablet(s) PO BID No Start Date 04/25/2011 Inactive Xanax 0.25 mg tablet RxNorm: 322191 1 Tablet(s) PO daily as needed No Start Date 12/27/2015 Inactive Bystolic 10 mg Tab RxNorm: 016169 1 Tablet(s) PO daily No Start Date 05/22/2011 Inactive Fioricet 50 mg-325 mg-40 mg Tab RxNorm: 792369 1 Tablet(s) PO Q4 PRN No Start Date 07/13/2011 Inactive albuterol sulfate HFA 90 mcg/Actuation Aerosol Inhaler RxNorm: 5553529 1 INH Q4 PRN No Start Date 01/06/2015 Inactive Imitrex 50 mg tablet RxNorm: 213890 1 Tablet(s) PO Q8 as needed may repeat x1 dose in 1 hour of inital dose. No Start Date 02/24/2016 Inactive dc fioricet Tessalon 200 mg Cap RxNorm: 972131 1 Capsule(s) PO Q4 PRN No Start Date 02/14/2012 Inactive Zithromax Z-Sergio 250 mg tablet RxNorm: 372751 Tablet(s) PO No Start Date 11/10/2013 Inactive hydrochlorothiazide 25 mg Tab RxNorm: 880617 1 Tablet(s) PO daily No Start Date 09/04/2011 Inactive Fish Oil 1,000 mg Cap RxNorm: 1 Capsule(s) PO TID No Start Date 11/08/2017 Inactive Deplin 15 mg Tab RxNorm: 1 Tablet(s) PO daily No Start Date 08/01/2011 Inactive Brilinta 90 mg tablet RxNorm: 4286697 1 Tablet(s) PO BID No Start Date 11/23/2015 Inactive Synthroid 75 mcg Tab RxNorm: 339130 1 Tablet(s) PO daily No Start Date 07/31/2011 Inactive ciprofloxacin 0.3 % eye drops RxNorm: 362382 2 Drop(s) ophthalmic (eye) Q2H while awake x 2 days, then Q4H x 5 days No Start Date 11/22/2017 Inactive scopolamine 1.5 mg 72 hr Transderm Patch RxNorm: 759576 1 Milligram(s) TD q72 hours No Start Date 11/25/2012 Inactive hydrocodone-acetaminophen 10 mg-325 mg tablet RxNorm: 4345496 1 Tablet(s) PO Q6 PRN No Start Date 08/07/2012 Inactive Phenergan with Codeine Syrup RxNorm: 5-10 Milliliter(s) PO Q6 PRN No Start Date 02/14/2012 Inactive Norvasc 10 mg Tab RxNorm: 756110 1 Tablet(s) PO daily No Start Date 12/01/2011 Inactive Zithromax Z-Sergio 250 mg Tab RxNorm: 204981 Tablet(s) PO No Start Date 08/01/2011 Inactive Medication Administered Medication Codes Instructions Start Date Status ceftriaxone 500 mg solution for injection RxNorm: 6576880 05/28/2018 No longer Active Kenalog 40 mg/mL suspension for injection RxNorm: 2839337 Milliliter 05/28/2018 No longer Active ceftriaxone 500 mg solution for injection RxNorm: 9514436 500Milligram 01/19/2018 No longer Active Kenalog 40 mg/mL suspension for injection RxNorm: 3837311 1Milliliter 01/19/2018 No longer Active Kenalog 40 mg/mL suspension for injection RxNorm: 2722145 1Milliliter 06/27/2017 No longer Active Kenalog 40 mg/mL suspension for injection RxNorm: 7446789 Milliliter 04/20/2017 No longer Active Kenalog 40 mg/mL suspension for injection RxNorm: 9082561 1Milliliter 03/14/2017 No longer Active ceftriaxone 500 mg solution for injection RxNorm: 4402098 1Milliliter 11/28/2016 No longer Active Kenalog 40 mg/mL suspension for injection RxNorm: 7280009 Milliliter 11/07/2016 No longer Active ceftriaxone 500 mg solution for injection RxNorm: 3396523 11/07/2016 No longer Active ceftriaxone 500 mg solution for injection RxNorm: 4232427 12/07/2015 No longer Active Kenalog 40 mg/mL suspension for injection RxNorm: 1418165 1Milliliter 11/24/2015 No longer Active ceftriaxone 500 mg solution for injection RxNorm: 6691422 Milliliter 11/24/2015 No longer Active promethazine 25 mg/mL injection solution RxNorm: 967511 Milliliter 08/27/2015 No longer Active ketorolac 60 mg/2 mL intramuscular solution RxNorm: 541447 Milliliter 08/27/2015 No longer Active Kenalog 40 mg/mL suspension for injection RxNorm: 5623361 Milliliter 08/10/2015 No longer Active ceftriaxone 500 mg solution for injection RxNorm: 6766192 08/10/2015 No longer Active ceftriaxone 500 mg solution for injection RxNorm: 2049561 1Milliliter 07/28/2015 No longer Active Kenalog 40 mg/mL suspension for injection RxNorm: 3687713 Milliliter 03/19/2015 No longer Active Kenalog 40 mg/mL suspension for injection RxNorm: 1607933 Milliliter 06/23/2014 No longer Active ceftriaxone 500 mg solution for injection RxNorm: 435468 06/23/2014 No longer Active Rocephin 500 mg solution for injection RxNorm: 254072 1mlMilliliter 09/24/2013 No longer Active Rocephin 500 mg solution for injection RxNorm: 348551 1Milliliter 09/19/2013 No longer Active Rocephin 500 mg solution for injection RxNorm: 7514201 1 07/10/2013 No longer Active Kenalog 40 mg/mL suspension for injection RxNorm: 3062883 1Milliliter 07/10/2013 No longer Active Kenalog 40 mg/mL Susp for Injection RxNorm: 0664826 1Milliliter 09/24/2012 No longer Active Rocephin 500 mg Solution for Injection RxNorm: 4134937 02/15/2012 No longer Active Influenza Virus Vaccine [...] (3rd IS) 4.03 uIU/mL 02/15/2019 Free T4 Aii398 FREE T4 0.71 ng/dL 02/15/2019 Lipid Ord30 CHOL 193 mg/dL 01/01/2019 Lipid Ord30 HDL 45.0 mg/dl 01/01/2019 Lipid Ord30 TRIG 111 mg/dL 01/01/2019 Lipid Ord30 LDL 126 mg/dL 01/01/2019 Lipid Ord30 C/HDL 4.3 Ratio 01/01/2019 Comp Metabolic Gwa914 NA 140 mEq/L 01/01/2019 Comp Metabolic Daf347 K 3.8 mEq/L 01/01/2019 Comp Metabolic Pjy962 CL 103 mEq/L 01/01/2019 Comp Metabolic Tqn615 CO2 28.0 mEq/L 01/01/2019 Comp Metabolic Bjl356 ANION GAP 13 01/01/2019 Comp Metabolic Wlb761 GLUCOSE 93 mg/dL 01/01/2019 Comp Metabolic Vuc768 Creat 0.7 mg/dL 01/01/2019 Comp Metabolic Jyw008 eGFR 86 ml/min/1.73m2 01/01/2019 Comp Metabolic Heg478 BUN 21 mg/dL 01/01/2019 Comp Metabolic Gvv853 B/C Ratio 29.6 Ratio 01/01/2019 Comp Metabolic Mzw043 CALCIUM 9.4 mg/dL 01/01/2019 Comp Metabolic Unh717 ALK PHOS 67 U/L 01/01/2019 Comp Metabolic Wyf754 AST(SGOT) 27 U/L 01/01/2019 Comp Metabolic Sum073 ALT(SGPT) 30 U/L 01/01/2019 Comp Metabolic Nqr809 BILI T 0.5 mg/dL 01/01/2019 Comp Metabolic Qva847 ALBUMIN 4.0 g/dL 01/01/2019 Comp Metabolic Kvi923 TPRO 6.8 g/dL 01/01/2019 Comp Metabolic Iwf655 GLOB 2.8 g/dL 01/01/2019 Comp Metabolic Rqb206 A/G Ratio 1.4 Ratio 01/01/2019 Comp Metabolic Apw881 Osmo 282 mOsmo 01/01/2019 Free T4 Ozv214 FREE T4 0.71 ng/dL 10/31/2018 Tsh Ord6 TSH (3rd IS) 7.87 uIU/mL 10/31/2018 Lipid Ord30 CHOL 170 mg/dL 10/31/2018 Lipid Ord30 HDL 53.0 mg/dl 10/31/2018 Lipid Ord30 TRIG 85 mg/dL 10/31/2018 Lipid Ord30 LDL 100 mg/dL 10/31/2018 Lipid Ord30 C/HDL 3.2 Ratio 10/31/2018 Comp Metabolic Xee785 NA 142 mEq/L 10/31/2018 Comp Metabolic Xoz496 K 4.0 mEq/L 10/31/2018 Comp Metabolic Yez394 CL 106 mEq/L 10/31/2018 Comp Metabolic Loq289 CO2 27.0 mEq/L 10/31/2018 Comp Metabolic Buj241 ANION GAP 13 10/31/2018 Comp Metabolic Wqz380 GLUCOSE 114 mg/dL 10/31/2018 Comp Metabolic Far519 Creat 0.7 mg/dL 10/31/2018 Comp Metabolic Gqo418 eGFR 90 ml/min/1.73m2 10/31/2018 Comp Metabolic Fow137 BUN 21 mg/dL 10/31/2018 Comp Metabolic Pvt292 B/C Ratio 30.9 Ratio 10/31/2018 Comp Metabolic Hxv201 CALCIUM 9.7 mg/dL 10/31/2018 Comp Metabolic Pkj007 ALK PHOS 63 U/L 10/31/2018 Comp Metabolic Jat672 AST(SGOT) 24 U/L 10/31/2018 Comp Metabolic Xzi665 ALT(SGPT) 21 U/L 10/31/2018 Comp Metabolic Isq080 BILI T 0.6 mg/dL 10/31/2018 Comp Metabolic Rwd462 ALBUMIN 4.1 g/dL 10/31/2018 Comp Metabolic Aeu885 TPRO 6.6 g/dL 10/31/2018 Comp Metabolic Urk029 GLOB 2.5 g/dL 10/31/2018 Comp Metabolic Tym245 A/G Ratio 1.7 Ratio 10/31/2018 Comp Metabolic Hds421 Osmo 287 mOsmo 10/31/2018 Cbc With Differential [...] 30.9 pg 10/31/2018 Cbc With Differential Ord2 [place]% 8.0 % 10/31/2018 Cbc With Differential Ord2 [...] 1.88 K/ul 10/31/2018 Cbc With Differential Ord2 [place] ABS# 0.6 K/ul 10/31/2018 Cbc With Differential Ord2 Eos ABS# 0.5 K/ul 10/31/2018 Cbc With Differential Ord2 Baso ABS# 0.1 K/ul 10/31/2018 Comp Metabolic Ehy020 NA 141 mEq/L 09/12/2017 Comp Metabolic Cam840 K 4.1 mEq/L 09/12/2017 Comp Metabolic Tmb122 CL 105 mEq/L 09/12/2017 Comp Metabolic Igl255 CO2 30.0 mEq/L 09/12/2017 Comp Metabolic Pcz307 ANION GAP 10 09/12/2017 Comp Metabolic Wsu771 GLUCOSE 97 mg/dL 09/12/2017 Comp Metabolic Elz821 Creat 0.7 mg/dL 09/12/2017 Comp Metabolic Aos881 eGFR 91 ml/min/1.73m2 09/12/2017 Comp Metabolic Qnn458 BUN 18 mg/dL 09/12/2017 Comp Metabolic Pfy970 B/C Ratio 26.5 Ratio 09/12/2017 Comp Metabolic Hwp914 CALCIUM 9.7 mg/dL 09/12/2017 Comp Metabolic Dhi019 ALK PHOS 60 U/L 09/12/2017 Comp Metabolic Zot380 AST(SGOT) 22 U/L 09/12/2017 Comp Metabolic Gzb512 ALT(SGPT) 23 U/L 09/12/2017 Comp Metabolic Npi509 BILI T 0.4 mg/dL 09/12/2017 Comp Metabolic Jlo718 ALBUMIN 3.8 g/dL 09/12/2017 Comp Metabolic Gvp691 TPRO 6.4 g/dL 09/12/2017 Comp Metabolic Mcb111 GLOB 2.6 g/dL 09/12/2017 Comp Metabolic Est622 A/G Ratio 1.5 Ratio 09/12/2017 Comp Metabolic Aoo127 Osmo 283 mOsmo 09/12/2017 Cbc With Differential [...] 30.7 pg 09/12/2017 Cbc With Differential Ord2 [place]% 7.2 % 09/12/2017 Cbc With Differential Ord2 [...] 2.46 K/ul 09/12/2017 Cbc With Differential Ord2 [place] ABS# 0.6 K/ul 09/12/2017 Cbc With Differential [...] 31.4 pg 11/07/2016 Cbc With Differential Ord2 [place]% 6.1 % 11/07/2016 Cbc With Differential Ord2 [...] 2.48 K/ul 11/07/2016 Cbc With Differential Ord2 [place] ABS# 0.6 K/ul 11/07/2016 Cbc With Differential Ord2 Eos ABS# 0.3 K/ul 11/07/2016 Cbc With Differential Ord2 Baso ABS# 0.1 K/ul 11/07/2016 Comp Metabolic Yho992 NA 139 mEq/L 11/07/2016 Comp Metabolic Jxv623 K 3.8 mEq/L 11/07/2016 Comp Metabolic Rdd843 CL 106 mEq/L 11/07/2016 Comp Metabolic Reh463 CO2 25.0 mEq/L 11/07/2016 Comp Metabolic Bzy851 ANION GAP 12 11/07/2016 Comp Metabolic Frm214 GLUCOSE 98 mg/dL 11/07/2016 Comp Metabolic Bfv054 Creat 0.8 mg/dL 11/07/2016 Comp Metabolic Efb218 eGFR 71 ml/min/1.73m2 11/07/2016 Comp Metabolic Fec295 BUN 36 mg/dL 11/07/2016 Comp Metabolic Cuz406 B/C Ratio 42.9 Ratio 11/07/2016 Comp Metabolic Ezm015 CALCIUM 9.9 mg/dL 11/07/2016 Comp Metabolic Imf930 ALK PHOS 57 U/L 11/07/2016 Comp Metabolic Gmh565 AST(SGOT) 24 U/L 11/07/2016 Comp Metabolic San887 ALT(SGPT) 28 U/L 11/07/2016 Comp Metabolic Yvy609 BILI T 0.4 mg/dL 11/07/2016 Comp Metabolic Zrl837 ALBUMIN 4.2 g/dL 11/07/2016 Comp Metabolic Pkv083 TPRO 7.0 g/dL 11/07/2016 Comp Metabolic Aeo670 GLOB 2.8 g/dL 11/07/2016 Comp Metabolic Uyo954 A/G Ratio 1.5 Ratio 11/07/2016 Comp Metabolic Dck492 Osmo 286 mOsmo 11/07/2016 Free T4 Qge473 FREE T4 0.75 ng/dL 11/07/2016 Tsh Ord6 hTSH II 3.46 uIU/mL 11/07/2016 Comp Metabolic Tbm599 NA 138 mEq/L 05/10/2016 Comp Metabolic Ghg875 K 3.8 mEq/L 05/10/2016 Comp Metabolic Njc629 CL 102 mEq/L 05/10/2016 Comp Metabolic Kko575 CO2 29.0 mEq/L 05/10/2016 Comp Metabolic Zhr156 ANION GAP 11 05/10/2016 Comp Metabolic Nmh680 GLUCOSE 107 mg/dL 05/10/2016 Comp Metabolic Erj050 Creat 0.7 mg/dL 05/10/2016 Comp Metabolic Mec243 eGFR 93 ml/min/1.73m2 05/10/2016 Comp Metabolic Smy659 BUN 18 mg/dL 05/10/2016 Comp Metabolic Xtc166 B/C Ratio 26.9 Ratio 05/10/2016 Comp Metabolic Kgy563 CALCIUM 9.8 mg/dL 05/10/2016 Comp Metabolic Fjn766 ALK PHOS 60 U/L 05/10/2016 Comp Metabolic Cpv444 AST(SGOT) 21 U/L 05/10/2016 Comp Metabolic Ajj608 ALT(SGPT) 23 U/L 05/10/2016 Comp Metabolic Bea146 BILI T 0.5 mg/dL 05/10/2016 Comp Metabolic Uzs397 ALBUMIN 4.1 g/dL 05/10/2016 Comp Metabolic Gpd594 TPRO 6.7 g/dL 05/10/2016 Comp Metabolic Qmr569 GLOB 2.7 g/dL 05/10/2016 Comp Metabolic Qgs541 A/G Ratio 1.5 Ratio 05/10/2016 Comp Metabolic Oxt694 Osmo 278 mOsmo 05/10/2016 Lipid Ord30 CHOL 169 mg/dL 05/10/2016 Lipid Ord30 HDL 50.0 mg/dl 05/10/2016 Lipid Ord30 TRIG 161 mg/dL 05/10/2016 Lipid Ord30 LDL 87 mg/dL 05/10/2016 Lipid Ord30 C/HDL 3.4 Ratio 05/10/2016 Comp Metabolic Teb578 NA 137 mEq/L 06/12/2015 Comp Metabolic Znm950 K 3.8 mEq/L 06/12/2015 Comp Metabolic Cwf243 CL 104 mEq/L 06/12/2015 Comp Metabolic Phr883 CO2 24.0 mEq/L 06/12/2015 Comp Metabolic Jop413 ANION GAP 13 06/12/2015 Comp Metabolic Rts495 GLUCOSE 92 mg/dL 06/12/2015 Comp Metabolic Hpp770 Creat 0.7 mg/dL 06/12/2015 Comp Metabolic Mgd011 eGFR 87 ml/min/1.73m2 06/12/2015 Comp Metabolic Uls136 BUN 31 mg/dL 06/12/2015 Comp Metabolic Hfq394 B/C Ratio 43.7 Ratio 06/12/2015 Comp Metabolic Nhq383 CALCIUM 10.0 mg/dL 06/12/2015 Comp Metabolic Hsn607 ALK PHOS 58 U/L 06/12/2015 Comp Metabolic Hkr625 AST(SGOT) 32 U/L 06/12/2015 Comp Metabolic Tvm216 ALT(SGPT) 33 U/L 06/12/2015 Comp Metabolic Ltm235 BILI T 0.5 mg/dL 06/12/2015 Comp Metabolic Dtj173 ALBUMIN 4.1 g/dL 06/12/2015 Comp Metabolic Fol661 TPRO 6.6 g/dL 06/12/2015 Comp Metabolic Xiy685 GLOB 2.5 g/dL 06/12/2015 Comp Metabolic Khe463 A/G Ratio 1.6 Ratio 06/12/2015 Comp Metabolic Nqi515 Osmo 280 mOsmo 06/12/2015 Cbc With Differential [...] Differential Ord2 RDW 14.2 % 06/12/2015 CBC 8290571 WBC 8.7 10e9/L 04/30/2013 CBC 3016479 RBC 4.63 10e12/L 04/30/2013 CBC 3194663 HGB 14.1 g/dL 04/30/2013 CBC 0120337 HCT DET 42.2 % 04/30/2013 CBC 8787057 MCV 91.1 fL 04/30/2013 CBC 8535780 MCH 30.5 pg 04/30/2013 CBC 6512493 MCHC 33.4 g/dL 04/30/2013 CBC 2320718 PLT 248 10e9/L 04/30/2013 CBC 9749920 MPV 12.1 fL 04/30/2013 CBC 5077118 LARA % 59.0 % 04/30/2013 CBC 2030079 LY % 27.6 % 04/30/2013 CBC 5355646 MON % 8.0 % 04/30/2013 CBC 1145195 EOS % 4.8 % 04/30/2013 CBC 2625274 BASO % 0.6 % 04/30/2013 CBC 3720254 RDW 13.3 % 04/30/2013 CBC 4194860 ABS LARA 5.13 10e9/L 04/30/2013 CBC 9174454 ABS LYMPH 2.40 10e9/L 04/30/2013 CBC 1295697 ABS MONO 0.70 10e9/L 04/30/2013 CBC 2165758 ABS EOS 0.42 10e9/L 04/30/2013 CBC 5396404 ABS BASO 0.05 10e9/L 04/30/2013 CBC 5885590 RDW-SD 43.1 fL 04/30/2013 TSH 2845905 TSH 4.339 uIU/ML 04/30/2013 A1C HPLC 2903777 A1C HPLC 26634-2 5.6 % 04/30/2013 FREE T4 7692008 FREE T4 0.84 NG/DL 04/30/2013 GFR CALC 5968354 GFR AA >60 ML/MIN 04/30/2013 GFR CALC 6837657 GFR NON-AA >60 ML/MIN 04/30/2013 CHEM 14 9807929 AST 22 U/L 04/30/2013 CHEM 14 3946337 ALT 22 IU/L 04/30/2013 CHEM 14 8035873 BUN 24 MG/DL 04/30/2013 CHEM 14 8818223 ALBUMIN 4.2 GM/DL 04/30/2013 CHEM 14 6933345 CHLORIDE 107 MMOL/L 04/30/2013 CHEM 14 9385669 BILI TOT 0.3 MG/DL 04/30/2013 CHEM 14 6481340 ALK PHOS 88 U/L 04/30/2013 CHEM 14 5282405 SODIUM 141 MMOL/L 04/30/2013 CHEM 14 7934745 CREATININE 0.60 MG/DL 04/30/2013 CHEM 14 9063141 CALCIUM 9.9 MG/DL 04/30/2013 CHEM 14 7767462 POTASSIUM 3.7 MMOL/L 04/30/2013 CHEM 14 3158542 PROT TOT 6.6 GM/DL 04/30/2013 CHEM 14 9164462 GLUCOSE 123 MG/DL 04/30/2013 CHEM 14 8183162 BICARB 25 MMOL/L 04/30/2013 CHEM 14 5687991 ANION GAP 9 MEQ/L 04/30/2013 LIPID GRP HDL TEST 46 MG/DL 04/30/2013 LIPID GRP TRIG 148 MG/DL 04/30/2013 LIPID GRP TEST LDL 75 MG/DL 04/30/2013 LIPID GRP CHOL 151 MG/DL 04/30/2013 LIPID GRP RCHOL/HDL 3.28 RATIO 04/30/2013 TSH 3728247 TSH 3.341 uIU/ML 11/29/2012 CBC 3512694 WBC 8.4 10e9/L 11/29/2012 CBC 4736217 RBC 4.77 10e12/L 11/29/2012 CBC 2983634 HGB 14.9 g/dL 11/29/2012 CBC 9466516 HCT DET 44.2 % 11/29/2012 CBC 3559994 MCV 92.7 fL 11/29/2012 CBC 8182493 MCH 31.2 pg 11/29/2012 CBC 9895418 MCHC 33.7 g/dL 11/29/2012 CBC 6050065 PLT 253 10e9/L 11/29/2012 CBC 0679636 MPV 11.8 fL 11/29/2012 CBC 2938516 LARA % 54.9 % 11/29/2012 CBC 2793643 LY % 29.0 % 11/29/2012 CBC 7833437 MON % 10.4 % 11/29/2012 CBC 1923283 EOS % 5.1 % 11/29/2012 CBC 5145547 BASO % 0.6 % 11/29/2012 CBC 9770150 RDW 13.8 % 11/29/2012 CBC 9995425 ABS LARA 4.61 10e9/L 11/29/2012 CBC 0576801 ABS LYMPH 2.44 10e9/L 11/29/2012 CBC 2748188 ABS MONO 0.87 10e9/L 11/29/2012 CBC 4744195 ABS EOS 0.43 10e9/L 11/29/2012 CBC 3486245 ABS BASO 0.05 10e9/L 11/29/2012 CBC 8338546 RDW-SD 45.9 fL 11/29/2012 CHEM 14 5447379 AST 25 U/L 11/29/2012 CHEM 14 0609372 ALT 26 IU/L 11/29/2012 CHEM 14 0701031 BUN 25 MG/DL 11/29/2012 CHEM 14 5378195 ALBUMIN 4.4 GM/DL 11/29/2012 CHEM 14 6744972 CHLORIDE 106 MMOL/L 11/29/2012 CHEM 14 1094282 BILI TOT 0.4 MG/DL 11/29/2012 CHEM 14 8193223 ALK PHOS 86 U/L 11/29/2012 CHEM 14 5554018 SODIUM 141 MMOL/L 11/29/2012 CHEM 14 3495761 CREATININE 0.80 MG/DL 11/29/2012 CHEM 14 1395088 CALCIUM 9.7 MG/DL 11/29/2012 CHEM 14 2613350 POTASSIUM 4.0 MMOL/L 11/29/2012 CHEM 14 5146124 PROT TOT 6.6 GM/DL 11/29/2012 CHEM 14 4421776 GLUCOSE 112 MG/DL 11/29/2012 CHEM 14 7866595 BICARB 29 MMOL/L 11/29/2012 CHEM 14 1817151 ANION GAP 6 MEQ/L 11/29/2012 A1C HPLC 8944434 A1C HPLC 03837-7 5.5 % 11/29/2012 LIPID GRP HDL TEST 54 MG/DL 11/29/2012 LIPID GRP TRIG 77 MG/DL 11/29/2012 LIPID GRP TEST LDL 78 MG/DL 11/29/2012 LIPID GRP CHOL 147 MG/DL 11/29/2012 LIPID GRP RCHOL/HDL 2.72 RATIO 11/29/2012 FREE T4 2274686 FREE T4 1.23 NG/DL 11/29/2012 GFR CALC 8460891 GFR AA >60 ML/MIN 11/29/2012 GFR CALC 2564035 GFR NON-AA >60 ML/MIN 11/29/2012 CHEM 14 2564281 AST 23 U/L 08/07/2012 CHEM 14 8413597 ALT 34 IU/L 08/07/2012 CHEM 14 7569157 BUN 26 MG/DL 08/07/2012 CHEM 14 6862436 ALBUMIN 4.4 GM/DL 08/07/2012 CHEM 14 5154636 CHLORIDE 105 MMOL/L 08/07/2012 CHEM 14 3333755 BILI TOT 0.5 MG/DL 08/07/2012 CHEM 14 3951867 ALK PHOS 79 U/L 08/07/2012 CHEM 14 8372666 SODIUM 140 MMOL/L 08/07/2012 CHEM 14 3718659 CREATININE 0.71 MG/DL 08/07/2012 CHEM 14 0949885 CALCIUM 10.4 MG/DL 08/07/2012 CHEM 14 6778050 POTASSIUM 3.8 MMOL/L 08/07/2012 CHEM 14 1649634 PROT TOT 6.8 GM/DL 08/07/2012 CHEM 14 5094163 GLUCOSE 104 MG/DL 08/07/2012 CHEM 14 5395458 BICARB 27 MMOL/L 08/07/2012 CHEM 14 9109386 ANION GAP 8 MEQ/L 08/07/2012 A1C HPLC 3293372 A1C HPLC 30635-3 5.4 % 08/07/2012 FREE T4 1579452 FREE T4 1.11 NG/DL 08/07/2012 LIPID GRP HDL TEST 50 MG/DL 08/07/2012 LIPID GRP TRIG 127 MG/DL 08/07/2012 LIPID GRP TEST LDL 93 MG/DL 08/07/2012 LIPID GRP CHOL 168 MG/DL 08/07/2012 LIPID GRP RCHOL/HDL 3.36 RATIO 08/07/2012 CBC 4184927 WBC 8.7 10e9/L 08/07/2012 CBC 0350108 RBC 4.67 10e12/L 08/07/2012 CBC 8099159 HGB 14.4 g/dL 08/07/2012 CBC 5853300 HCT DET 42.8 % 08/07/2012 CBC 9978726 MCV 91.6 fL 08/07/2012 CBC 1734182 MCH 30.8 pg 08/07/2012 CBC 2154330 MCHC 33.6 g/dL 08/07/2012 CBC 4193725 PLT 271 10e9/L 08/07/2012 CBC 8536018 MPV 12.3 fL 08/07/2012 CBC 7055552 LARA % 50.6 % 08/07/2012 CBC 9672325 LY % 34.9 % 08/07/2012 CBC 9433626 MON % 9.1 % 08/07/2012 CBC 9017029 EOS % 5.1 % 08/07/2012 CBC 8668099 BASO % 0.3 % 08/07/2012 CBC 4390430 RDW 13.6 % 08/07/2012 CBC 5522791 ABS LARA 4.40 10e9/L 08/07/2012 CBC 9625380 ABS LYMPH 3.04 10e9/L 08/07/2012 CBC 1426143 ABS MONO 0.79 10e9/L 08/07/2012 CBC 4838399 ABS EOS 0.44 10e9/L 08/07/2012 CBC 4329822 ABS BASO 0.03 10e9/L 08/07/2012 CBC 9503323 RDW-SD 44.1 fL 08/07/2012 TSH 5645543 TSH 7.419 uIU/ML 08/07/2012 GFR CALC 5194871 GFR AA >60 ML/MIN 08/07/2012 GFR CALC 6673491 GFR NON-AA >60 ML/MIN 08/07/2012 A1C HPLC 0770436 A1C HPLC 92210-0 5.3 % 02/21/2012 TSH 6243960 TSH 0.832 uIU/ML 02/16/2012 FREE T4 3344371 FREE T4 1.04 NG/DL 02/16/2012 GFR CALC 4740246 GFR AA >60 ML/MIN 02/16/2012 GFR CALC 2848501 GFR NON-AA >60 ML/MIN 02/16/2012 BMP GLUCOSE 112 MG/DL 02/16/2012 BMP CREATININE 0.65 MG/DL 02/16/2012 BMP BUN 17 MG/DL 02/16/2012 BMP SODIUM 144 MMOL/L 02/16/2012 BMP POTASSIUM 4.0 MMOL/L 02/16/2012 BMP CHLORIDE 107 MMOL/L 02/16/2012 BMP BICARB 29 MMOL/L 02/16/2012 BMP 2892804 ANION GAP 8 MEQ/L 02/16/2012 BMP 3578872 CALCIUM 9.5 MG/DL 02/16/2012 CBC 7614378 WBC 7.1 10e9/L 02/16/2012 CBC 1450057 RBC 4.47 10e12/L 02/16/2012 CBC 3920706 HGB 13.5 g/dL 02/16/2012 CBC 9072762 HCT DET 40.7 % 02/16/2012 CBC 0493363 MCV 91.1 fL 02/16/2012 CBC 6569887 MCH 30.2 pg 02/16/2012 CBC 5566481 MCHC 33.2 g/dL 02/16/2012 CBC 1330549 PLT 238 10e9/L 02/16/2012 CBC 9771220 MPV 11.4 fL 02/16/2012 CBC 8741179 LARA % 55.7 % 02/16/2012 CBC 0450824 LY % 29.6 % 02/16/2012 CBC 0699964 MON % 9.2 % 02/16/2012 CBC 2179815 EOS % 5.1 % 02/16/2012 CBC 0809554 BASO % 0.4 % 02/16/2012 CBC 5047104 RDW 13.0 % 02/16/2012 CBC 6001047 ABS LARA 3.95 10e9/L 02/16/2012 CBC 1269736 ABS LYMPH 2.10 10e9/L 02/16/2012 CBC 7498082 ABS MONO 0.65 10e9/L 02/16/2012 CBC 8109857 ABS EOS 0.36 10e9/L 02/16/2012 CBC 3131996 ABS BASO 0.03 10e9/L 02/16/2012 CBC 3103671 RDW-SD 42.4 fL 02/16/2012 URINALYSIS NONAUTO W/O SCOPE 35216 Specific [place] 1.015 DateTime(Free Text in Aprima) URINALYSIS NONAUTO W/O SCOPE 63780 PH 7 DateTime(Free Text in Apr[employer]) URINALYSIS NONAUTO W/O SCOPE 02381 GLUCOSE neg DateTime(Free Text in Apr[employer]) URINALYSIS NONAUTO W/O SCOPE 10505 Protein 1+ DateTime(Free Text in Aprima) URINALYSIS NONAUTO W/O SCOPE 44678 Blood neg DateTime(Free Text in Aprima) URINALYSIS NONAUTO W/O SCOPE 74153 Bilirubin neg DateTime(Free Text in Aprima) URINALYSIS NONAUTO W/O SCOPE 68730 Ketones neg DateTime(Free Text in Aprima) URINALYSIS NONAUTO W/O SCOPE 80918 Urobilinogen neg DateTime(Free Text in Aprima) URINALYSIS NONAUTO W/O SCOPE 74972 Nitrite postive DateTime(Free Text in Aprima) URINALYSIS NONAUTO W/O SCOPE 84933 Leukocytes 3+ DateTime(Free Text in Aprima) URINALYSIS NONAUTO W/O SCOPE 27617 Specific [place] 1.030 DateTime(Free Text in Aprima) URINALYSIS NONAUTO W/O SCOPE 99183 PH 6 DateTime(Free Text in Aprima) URINALYSIS NONAUTO W/O SCOPE 10172 GLUCOSE neg DateTime(Free Text in Aprima) URINALYSIS NONAUTO W/O SCOPE 76113 Protein neg DateTime(Free Text in Aprima) URINALYSIS NONAUTO W/O SCOPE 50947 Blood neg DateTime(Free Text in Aprima) URINALYSIS NONAUTO W/O SCOPE 65077 Bilirubin neg DateTime(Free Text in Aprima) URINALYSIS NONAUTO W/O SCOPE 66682 Ketones neg DateTime(Free Text in Aprima) URINALYSIS NONAUTO W/O SCOPE 78303 Urobilinogen neg DateTime(Free Text in Aprima) URINALYSIS NONAUTO W/O SCOPE 71270 Nitrite neg DateTime(Free Text in Aprima) URINALYSIS NONAUTO W/O SCOPE 86459 Leukocytes trace DateTime(Free Text in Aprima) URINALYSIS NONAUTO W/O SCOPE 11134 Specific [place] 1.005 DateTime(Free Text in Aprima) URINALYSIS NONAUTO W/O SCOPE 06374 PH 5 DateTime(Free Text in Aprima) URINALYSIS NONAUTO W/O SCOPE 46120 GLUCOSE neg DateTime(Free Text in Aprima) URINALYSIS NONAUTO W/O SCOPE 74044 Protein neg DateTime(Free Text in Aprima) URINALYSIS NONAUTO W/O SCOPE 24604 Blood neg DateTime(Free Text in Aprima) URINALYSIS NONAUTO W/O SCOPE 99093 Bilirubin neg DateTime(Free Text in Aprima) URINALYSIS NONAUTO W/O SCOPE 76211 Ketones neg DateTime(Free Text in Aprima) URINALYSIS NONAUTO W/O SCOPE 91032 Urobilinogen neg DateTime(Free Text in Aprima) URINALYSIS NONAUTO W/O SCOPE 34458 Nitrite neg DateTime(Free Text in Aprima) URINALYSIS NONAUTO W/O SCOPE 03989 Leukocytes neg DateTime(Free Text in Aprima) UA 81747 Specific [place] 1.030 DateTime(Free Text in Apr) UA 42418 PH 5 DateTime(Free Text in Aprima) UA 14743 GLUCOSE neg DateTime(Free Text in Aprima) UA 93759 Protein trace DateTime(Free Text in Aprima) UA 20743 Blood large DateTime(Free Text in Apr) UA 27960 Bilirubin neg DateTime(Free Text in Apr) UA 34977 Ketones neg DateTime(Free Text in Aprima) UA 73307 Urobilinogen neg DateTime(Free Text in Aprima) UA 03098 Nitrite neg DateTime(Free Text in Apr) UA 10636 Leukocytes large DateTime(Free Text in ) Review [...] intact 06/03/2013 None Full Exam - General 1995 [...] 1994 Ears/Nose/Throat external ear Overall: no masses 12/03/2012 None Full Exam - General 1994 Ears/Nose/Throat external ear Overall: normal mastoids 12/03/2012 None Full Exam - General 1994 [...] nourished 09/10/2012 None Full Exam - General 1995 Eyes conjunctiva/eyelids Overall: conjunctiva clear 09/10/2012 None [...] 1994 Ears/Nose/Throat oral cavity/pharynx/larynx Overall: no masses 09/10/2012 [...] Codes Date URINALYSIS NONAUTO W/O SCOPE CPT-4: 06235 07/10/2018 TRIAMCINOLONE ACET INJ NOS CPT-4: J3301 05/28/2018 ROCEPHIN, PER 250 MG CPT- 4: J0696 05/28/2018 ROCEPHIN, PER 250 MG CPT- 4: J0696 01/19/2018 TRIAMCINOLONE ACET INJ NOS CPT-4: J3301 01/19/2018 PPPS, SUBSEQ VISIT CPT- 4: G0439 11/23/2017 TRIAMCINOLONE ACET INJ NOS CPT-4: J3301 06/27/2017 THER/PROPH/DIAG INJ SC/IM CPT-4: 72958 04/20/2017 TRIAMCINOLONE ACET INJ NOS CPT-4: J3301 04/20/2017 TRIAMCINOLONE ACET INJ NOS CPT-4: J3301 03/14/2017 ROCEPHIN, PER 250 MG CPT- 4: J0696 03/14/2017 DESTRUCT PREMALG LESION CPT-4: 48165 12/05/2016 DESTRUCT PREMALG LES 2-14 CPT-4: 38047 12/05/2016 URINALYSIS NONAUTO W/O SCOPE CPT-4: 90243 11/28/2016 ROCEPHIN, PER 250 MG CPT- 4: J0696 11/28/2016 PPPS, SUBSEQ VISIT CPT- 4: G0439 11/07/2016 THER/PROPH/DIAG INJ SC/IM CPT-4: 78439 11/07/2016 TRIAMCINOLONE ACET INJ NOS CPT-4: J3301 11/07/2016 ROCEPHIN, PER 250 MG CPT- 4: J0696 11/07/2016 THER/PROPH/DIAG INJ SC/IM CPT-4: 99867 08/15/2016 TRIAMCINOLONE ACET INJ NOS CPT-4: J3301 08/15/2016 ROCEPHIN, PER 250 MG CPT- 4: J0696 08/15/2016 URINALYSIS NONAUTO W/O SCOPE CPT-4: 51694 05/05/2016 ROCEPHIN, PER 250 MG CPT- 4: J0696 12/07/2015 TRIAMCINOLONE ACET INJ NOS CPT-4: J3301 11/24/2015 ROCEPHIN, PER 250 MG CPT- 4: J0696 11/24/2015 THER/PROPH/DIAG INJ SC/IM CPT-4: 32938 11/24/2015 THER/PROPH/DIAG INJ SC/IM CPT-4: 82526 08/27/2015 KETOROLAC TROMETHAMINE INJ CPT-4: J1885 08/27/2015 PROMETHAZINE HCL INJECTION CPT-4: J2550 08/27/2015 THER/PROPH/DIAG INJ SC/IM CPT-4: 24006 08/10/2015 TRIAMCINOLONE ACET INJ NOS CPT-4: J3301 08/10/2015 ROCEPHIN, PER 250 MG CPT- 4: J0696 08/10/2015 C WOUN RTS (CULTURE OTHR SPECIMN AEROBIC) CPT-4: 37483 07/28/2015 THER/PROPH/DIAG INJ SC/IM CPT-4: 18195 03/19/2015 TRIAMCINOLONE ACET INJ NOS CPT-4: J3301 03/19/2015 ROCEPHIN, PER 250 MG CPT- 4: J0696 06/23/2014 TRIAMCINOLONE ACET INJ NOS CPT-4: J3301 06/23/2014 INJ TRIGGER POINT 1/2 MUSCL CPT-4: 79461 06/05/2014 URINALYSIS NONAUTO W/O SCOPE CPT-4: 22142 02/11/2014 URINALYSIS NONAUTO W/O SCOPE CPT-4: 71197 10/15/2013 ROCEPHIN, PER 250 MG CPT- 4: J0696 09/24/2013 THER/PROPH/DIAG INJ SC/IM CPT-4: 28155 09/19/2013 ROCEPHIN, PER 250 MG CPT- 4: J0696 09/19/2013 PRESCRIP TRANSMIT VIA ERX SY CPT-4: G8553 08/05/2013 ROCEPHIN, PER 250 MG CPT- 4: J0696 07/10/2013 THER/PROPH/DIAG INJ SC/IM CPT-4: 67671 07/10/2013 TRIAMCINOLONE ACET INJ NOS CPT-4: J3301 07/10/2013 PRESCRIP TRANSMIT VIA ERX SY CPT-4: G8553 07/10/2013 15047 EST. PATIENT, LEVEL III CPT-4: 84507 06/03/2013 PRESCRIP TRANSMIT VIA ERX SY CPT-4: G8553 06/03/2013 PRESCRIP TRANSMIT VIA ERX SY CPT-4: G8553 05/07/2013 ROUTINE VENIPUNCTURE CPT- 4: 93042 04/30/2013 ROUTINE VENIPUNCTURE CPT- 4: 38572 11/29/2012 TRIAMCINOLONE ACET INJ NOS CPT-4: J3301 09/24/2012 THER/PROPH/DIAG INJ SC/IM CPT-4: 41522 09/24/2012 URINALYSIS NONAUTO W/O SCOPE CPT-4: 65588 09/24/2012 PRESCRIP TRANSMIT VIA ERX SY CPT-4: G8553 09/24/2012 PRESCRIP TRANSMIT VIA ERX SY CPT-4: G8553 09/10/2012 PRESCRIP TRANSMIT VIA ERX SY CPT-4: G8553 08/08/2012 ROUTINE VENIPUNCTURE CPT- 4: 78892 08/07/2012 ROUTINE VENIPUNCTURE CPT- 4: 75429 02/16/2012 URINALYSIS NONAUTO W/O SCOPE CPT-4: 75986 02/15/2012 ROCEPHIN, PER 250 MG CPT- 4: J0696 02/15/2012 PRESCRIP TRANSMIT VIA ERX SY CPT-4: G8553 02/15/2012 ROUTINE VENIPUNCTURE CPT- 4: 25096 11/08/2011 ROCEPHIN, PER 250 MG CPT- 4: J0696 07/14/2011 THER/PROPH/DIAG INJ SC/IM CPT-4: 03938 07/14/2011 Influenza Virus Vaccine, Split Virus, >3 Yrs, IM CPT-4: 96860 05/23/2011 IMMUNIZATION ADMIN CPT- 4: 33720 05/23/2011 THER/PROPH/DIAG INJ SC/IM CPT-4: 47292 05/03/2011 ROCEPHIN, PER 250 MG CPT- 4: J0696 05/03/2011 TRIAMCINOLONE ACET INJ NOS CPT-4: J3301 05/03/2011 Vital Signs Date Vital 01/29/2019 Blood Pressure 1: 138/88 Code: 8480-6 BMI: 31.9 Code: 40998-0 Heart Rate 1: 74 bpm Height: 4'11" SpO2: 94% Weight: 158 lbs 11/27/2018 Blood Pressure 1: 144/82 Code: 8480-6 Heart Rate 1: 67 bpm SpO2: 93% 11/16/2018 Blood Pressure 1: 168/100 Code: 8480-6 Heart Rate 1: 74 bpm SpO2: 96% 11/13/2018 Blood Pressure 1: 184/98 Code: 8480-6 BMI: 32.1 Code: 58317-1 Heart Rate 1: 68 bpm Height: 4'11" SpO2: 96% Weight: 159 lbs 10/30/2018 Blood Pressure 1: 158/98 Code: 8480-6 BMI: 31.7 Code: 41659-3 Heart Rate 1: 80 bpm Height: 4'11" SpO2: 96% Weight: 157 lbs 10/08/2018 Blood Pressure 1: 140/80 Code: 8480-6 BMI: 32.1 Code: 83380-2 Heart Rate 1: 92 bpm Height: 4'11" SpO2: 103% Weight: 159 lbs 07/16/2018 Blood Pressure 1: 142/80 Code: 8480-6 BMI: 31.1 Code: 61565-7 Heart Rate 1: 78 bpm Height: 4'11" SpO2: 98% Weight: 154 lbs 07/10/2018 Blood Pressure 1: 156/82 Code: 8480-6 BMI: 31.1 Code: 23634-0 Heart Rate 1: 63 bpm Height: 4'11" SpO2: 99% Weight: 154 lbs 05/28/2018 Blood Pressure 1: 142/80 Code: 8480-6 Heart Rate 1: 82 bpm Height: SpO2: 97% Temperature: 35.9 (C) / 96.6 (F) Weight: 02/07/2018 Height: Weight: 01/19/2018 Blood Pressure 1: 128/76 Code: 8480-6 BMI: 31.2 Code: 37600-7 Heart Rate 1: 71 bpm Height: 4'11" SpO2: 96% Temperature: 36.5 (C) / 97.7 (F) Weight: 154 lbs 8 oz 11/23/2017 Blood Pressure 1: 146/80 Code: 8480-6 BMI: 31.7 Code: 85548-0 Heart Rate 1: 64 bpm Height: 4'11" SpO2: 97% Waist Measure (cm): 89 cm Weight: 157 lbs 09/12/2017 Blood Pressure 1: 140/86 Code: 8480-6 Heart Rate 1: 62 bpm SpO2: 96% Temperature: 36.6 (C) / 97.8 (F) Weight: 153 lbs 07/25/2017 Blood Pressure 1: 140/72 Code: 8480-6 BMI: 31.3 Code: 48786-1 Heart Rate 1: 76 bpm Height: 4'11" SpO2: 97% Temperature: 37.2 (C) / 99.0 (F) Weight: 155 lbs 06/27/2017 Blood Pressure 1: 144/84 Code: 8480-6 BMI: 31.1 Code: 43759-5 Heart Rate 1: 63 bpm Height: 4'11" SpO2: 99% Temperature: 36.4 (C) / 97.6 (F) Weight: 154 lbs 05/08/2017 Blood Pressure 1: 142/86 Code: 8480-6 BMI: 30.9 Code: 44147-4 Height: 4'11" Temperature: 36.3 (C) / 97.4 (F) Weight: 153 lbs 03/14/2017 Blood Pressure 1: 146/82 Code: 8480-6 BMI: 30.9 Code: 96190-7 Heart Rate 1: 64 bpm Height: 4'11" SpO2: 94% Weight: 153 lbs 02/20/2017 Blood Pressure 1: 142/80 Code: 8480-6 BMI: 30.9 Code: 21237-4 Heart Rate 1: 75 bpm Height: 4'11" SpO2: 97% Weight: 153 lbs 02/06/2017 Blood Pressure 1: 138/90 Code: 8480-6 BMI: 31.5 Code: 98316-1 Heart Rate 1: 61 bpm Height: 4'11" SpO2: 98% Weight: 156 lbs 12/05/2016 Blood Pressure 1: 122/72 Code: 8480-6 Heart Rate 1: 59 bpm Height: 4'11" SpO2: 98% Weight: 11/28/2016 Blood Pressure 1: 154/86 Code: 8480-6 BMI: 31.3 Code: 22339-4 Heart Rate 1: 64 bpm Height: 4'11" SpO2: 94% Temperature: 36.2 (C) / 97.2 (F) Weight: 155 lbs 11/07/2016 Blood Pressure 1: 128/64 Code: 8480-6 BMI: 31.5 Code: 79098-1 Heart Rate 1: 59 bpm Height: 4'11" SpO2: 97% Weight: 156 lbs 08/15/2016 Blood Pressure 1: 110/62 Code: 8480-6 BMI: 31.5 Code: 13004-7 Heart Rate 1: 76 bpm Height: 4'11" SpO2: 97% Weight: 156 lbs 06/07/2016 Blood Pressure 1: 120/80 Code: 8480-6 BMI: 32.9 Code: 67780-9 Heart Rate 1: 63 bpm Height: 4'11" SpO2: 93% Temperature: 36.5 (C) / 97.7 (F) Weight: 163 lbs 03/15/2016 Blood Pressure 1: 90/42 Code: 8480-6 Heart Rate 1: 65 bpm SpO2: 94% 03/14/2016 Blood Pressure 1: 188/110 Code: 8480-6 Heart Rate 1: 68 bpm SpO2: 96% 02/22/2016 Blood Pressure 1: 158/80 Code: 8480-6 BMI: 32.7 Code: 26809-2 Heart Rate 1: 71 bpm Height: 4'11" SpO2: 95% Weight: 162 lbs 12/07/2015 Blood Pressure 1: 140/88 Code: 8480-6 BMI: 32.9 Code: 76596-8 Heart Rate 1: 99 bpm Height: 4'11" SpO2: 94% Temperature: 35.9 (C) / 96.6 (F) Weight: 163 lbs 11/24/2015 Blood Pressure 1: 144/78 Code: 8480-6 BMI: 33.7 Code: 08718-8 Heart Rate 1: 60 bpm Height: 4'11" SpO2: 98% Temperature: 36.6 (C) / 97.9 (F) Weight: 167 lbs 08/27/2015 Blood Pressure 1: 164/82 Code: 8480-6 BMI: 32.3 Code: 96181-5 Heart Rate 1: 60 bpm Height: 4'11" SpO2: 93% Weight: 160 lbs 08/10/2015 Blood Pressure 1: 130/60 Code: 8480-6 BMI: 32.5 Code: 76602-1 Heart Rate 1: 64 bpm Height: 4'11" SpO2: 97% Weight: 161 lbs 07/28/2015 Blood Pressure 1: 124/68 Code: 8480-6 BMI: 32.5 Code: 82726-1 Heart Rate 1: 69 bpm Height: 4'11" SpO2: 97% Weight: 161 lbs 06/11/2015 Blood Pressure 1: 148/80 Code: 8480-6 BMI: 32.9 Code: 38880-8 Heart Rate 1: 70 bpm Height: 4'11" SpO2: 94% Weight: 163 lbs 03/19/2015 Blood Pressure 1: 150/102 Code: 8480-6 Blood Pressure 2: 152/92 Code: 8480-6 BMI: 32.5 Code: 33036-7 Heart Rate 1: 71 bpm Height: 4'11" SpO2: 96% Weight: 161 lbs 01/07/2015 Blood Pressure 1: 126/84 Code: 8480-6 Heart Rate 1: 80 bpm Height: 4'11" 09/23/2014 Blood Pressure 1: 112/72 Code: 8480-6 BMI: 33.9 Code: 10409-6 Heart Rate 1: 72 bpm Height: 4'11" Weight: 168 lbs 08/05/2014 Blood Pressure 1: 140/86 Code: 8480-6 BMI: 33.3 Code: 98456-3 Height: 4'11" Weight: 165 lbs 06/23/2014 Blood Pressure 1: 132/70 Code: 8480-6 BMI: 32.9 Code: 68826-9 Heart Rate 1: 58 bpm Height: 4'11" Temperature: 36.0 (C) / 96.8 (F) Weight: 163 lbs 06/05/2014 Blood Pressure 1: 121/85 Code: 8480-6 BMI: 34.3 Code: 50991-2 Height: 4'11" Weight: 170 lbs 04/03/2014 Blood Pressure 1: 128/80 Code: 8480-6 Heart Rate 1: 88 bpm Weight: 167 lbs 03/07/2014 Blood Pressure 1: 122/82 Code: 8480-6 BMI: 33.9 Code: 47741-4 Heart Rate 1: 68 bpm Height: 4'11" Weight: 168 lbs 11/21/2013 Blood Pressure 1: 100/58 Code: 8480-6 BMI: 33.7 Code: 22062-4 Heart Rate 1: 64 bpm Height: 4'11" Weight: 167 lbs 09/24/2013 Blood Pressure 1: 148/88 Code: 8480-6 Heart Rate 1: 68 bpm Weight: 09/19/2013 Blood Pressure 1: 120/80 Code: 8480-6 BMI: 33.9 Code: 89963-5 Heart Rate 1: 80 bpm Height: 4'11" Temperature: 36.9 (C) / 98.5 (F) Weight: 168 lbs 08/05/2013 Blood Pressure 1: 128/80 Code: 8480-6 BMI: 34.3 Code: 45771-6 Heart Rate 1: 64 bpm Height: 4'11" Temperature: 36.2 (C) / 97.2 (F) Weight: 170 lbs 07/10/2013 Blood Pressure 1: 120/84 Code: 8480-6 BMI: 36.0 Code: 83932-5 Heart Rate 1: 90 bpm Height: 4'11" SpO2: 97% Temperature: 36.8 (C) / 98.2 (F) Weight: 178 lbs 06/03/2013 Blood Pressure 1: 136/94 Code: 8480-6 BMI: 34.7 Code: 11867-3 Heart Rate 1: 68 bpm Height: 4'11" Temperature: 36.7 (C) / 98.0 (F) Weight: 172 lbs 05/13/2013 Blood Pressure 1: 132/90 Code: 8480-6 Heart Rate 1: 68 bpm 05/07/2013 Blood Pressure 1: 168/100 Code: 8480-6 BMI: 34.3 Code: 99599-4 Heart Rate 1: 76 bpm Height: 4'11" Weight: 170 lbs 12/03/2012 Blood Pressure 1: 142/78 Code: 8480-6 BMI: 33.5 Code: 58138-9 Heart Rate 1: 76 bpm Height: 4'11" Weight: 166 lbs 09/24/2012 Blood Pressure 1: 116/70 Code: 8480-6 Heart Rate 1: 68 bpm Respiratory Rate: 16 bpm Temperature: 36.9 (C) / 98.4 (F) Weight: 162 lbs 09/10/2012 Blood Pressure 1: 116/80 Code: 8480-6 BMI: 33.7 Code: 72665-4 Heart Rate 1: 76 bpm Height: 4'11" [...] 1: 149/85 Code: 8480-6 BMI: 32.9 Code: 91616-3 Heart Rate 1: 79 bpm Height: 4'11" Weight: 164 lbs 05/03/2011 Blood Pressure 1: 122/79 Code: 8480-6 BMI: 30.8 Code: 91913-8 Heart Rate 1: 72 bpm Height: 5'1" Weight: 163 lbs 04/25/2011 Blood Pressure 1: 137/84 Code: 8480-6 BMI: 31.0 Code: 85640-8 Heart Rate 1: 63 bpm Height: 5'1" [...] days ago 02/15/2012 while visiting mother in [place] had uti and was put on pyridum [...] surg in december. then took trip to [facility] to see mother and has had [...] Quality chronic 08/01/2011 states went shopping on [employer] over night without taking any of medications [...] Encounters Encounter Performer Location Codes Date ( 14145 EST. PATIENT, LEVEL III Diagnosis: Functional diarrhea[ICD10: K59.1] Melba Goldman MD, [facility] CPT- 4: 75025 01/29/2019 ([id number]) Miscellaneous no charge Diagnosis: Essential (primary) hypertension[ICD10: I10] Melba Goldman MD, [facility] CPT-4: 03400 11/16/2018 ([id number]) 39028 EST. PATIENT, LEVEL III Diagnosis: Essential (primary) hypertension[ICD10: I10] Shahida Goldman MD, [facility] CPT-4: 17610 11/13/2018 ([id number]) 37327 EST. PATIENT, LEVEL IV Diagnosis: Essential (primary) hypertension[ICD10: I10] Diagnosis: Mixed hyperlipidemia[ICD10: E78.2] Diagnosis: Hypothyroidism, unspecified[ICD10: E03.9] Shahida Goldman MD, [facility] CPT-4: 32846 10/30/2018 57298 EST. PATIENT, LEVEL III Diagnosis: Other mucopurulent conjunctivitis, bilateral[ICD10: H10.023] Diagnosis: Other allergic rhinitis[ICD10: J30.89] Shahida Goldman MD, [facility] CPT-4: 61771 10/08/2018 78836 EST. PATIENT, LEVEL III Diagnosis: Essential (primary) hypertension[ICD10: I10] Diagnosis: Generalized anxiety disorder[ICD10: F41.1] Isabelle Goldman MD, [facility] CPT-4: 48553 07/16/2018 ([id number]) 37370 EST. PATIENT, LEVEL III Diagnosis: Acute recurrent maxillary sinusitis[ICD10: J01.01] Diagnosis: Frequency of micturition[ICD10: R35.0] Diagnosis: Low back pain[ICD10: M54.5] Shahida Goldman MD, [facility] CPT-4: 03841 07/10/2018 ([id number]) 82016 EST. PATIENT, LEVEL III Diagnosis: Acute recurrent maxillary sinusitis[ICD10: J01.01] Shahida Goldman MD, [facility] CPT-4: 11084 05/28/2018 ([id number]) Miscellaneous no charge Diagnosis: Laceration without foreign body, left lower leg, subsequent encounter[ICD10: S81.812D] Diagnosis: Laceration without foreign body, right lower leg, subsequent encounter[ICD10: S81.811D] Isabelle Goldman MD, [facility] CPT-4: 80543 02/08/2018 24165 EST. PATIENT, LEVEL III Diagnosis: Cellulitis of left lower limb[ICD10: L03.116] Diagnosis: Cellulitis of right lower limb[ICD10: L03.115] Diagnosis: Laceration without foreign body, left lower leg, initial encounter[ICD10: S81.812A] Diagnosis: Laceration without foreign body, right lower leg, initial encounter[ICD10: S81.811A] Isabelle Goldman MD, [facility] CPT-4: 59766 02/07/2018 ([id number]) 41450 EST. PATIENT, LEVEL IV Diagnosis: Primary generalized (osteo)arthritis[ICD10: M15.0] Diagnosis: Acute recurrent maxillary sinusitis[ICD10: J01.01] Diagnosis: Low back pain[ICD10: M54.5] Diagnosis: Other allergic rhinitis[ICD10: J30.89] Diagnosis: Obstructive sleep apnea (adult) (pediatric)[ICD10: G47.33] Shahida Goldman MD, [facility] CPT-4: 58815 01/19/2018 91476 EST. PATIENT, LEVEL IV Diagnosis: Diarrhea, unspecified[ICD10: R19.7] Diagnosis: Generalized abdominal pain[ICD10: R10.84] Diagnosis: Other allergic rhinitis[ICD10: J30.89] Diagnosis: Other acute sinusitis[ICD10: J01.80] Isabelle Goldman MD, [facility] CPT- 4: 58792 09/12/2017 69139 EST. PATIENT, LEVEL III Diagnosis: Acute laryngopharyngitis[ICD10: J06.0] Diagnosis: Other allergic rhinitis[ICD10: J30.89] Diagnosis: Cough[ICD10: R05] Diagnosis: Wheezing[ICD10: R06.2] Isabelle Goldman MD, [facility] CPT-4: 39133 07/25/2017 ([id number]) 05655 EST. PATIENT, LEVEL IV Diagnosis: Acute recurrent maxillary sinusitis[ICD10: J01.01] Diagnosis: Cervicalgia[ICD10: M54.2] Diagnosis: Diarrhea, unspecified[ICD10: R19.7] Shahida Goldman MD, [facility] CPT-4: 67045 06/27/2017 ([id number]) 69219 EST. PATIENT, LEVEL III Diagnosis: Chronic maxillary sinusitis[ICD10: J32.0] Diagnosis: Gastro-esophageal reflux disease without esophagitis[ICD10: K21.9] Shahida Goldman MD, [facility] CPT-4: 69942 05/08/2017 ([id number]) 01712 EST. PATIENT, LEVEL III Diagnosis: Acute recurrent maxillary sinusitis[ICD10: J01.01] Shahida Goldman MD, [facility] CPT-4: 06769 03/14/2017 04266 EST. PATIENT, LEVEL IV Diagnosis: Epigastric pain[ICD10: R10.13] Diagnosis: Left upper quadrant pain[ICD10: R10.12] Diagnosis: Left lower quadrant pain[ICD10: R10.32] Isabelle Goldmna MD, [facility] CPT-4: 41416 02/20/2017 ([id number]) 05470 EST. PATIENT, LEVEL IV Diagnosis: Generalized anxiety disorder[ICD10: F41.1] Diagnosis: Major depressive disorder, recurrent, moderate[ICD10: F33.1] Diagnosis: Left upper quadrant pain[ICD10: R10.12] Diagnosis: Epigastric pain[ICD10: R10.13] Diagnosis: Actinic keratosis[ICD10: L57.0] Melba Goldman MD, [facility] CPT-4: 69956 02/06/2017 ([id number]) 68823 EST. PATIENT, LEVEL III Diagnosis: Actinic keratosis[ICD10: L57.0] Diagnosis: Major depressive disorder, recurrent, moderate[ICD10: F33.1] Melba Goldman MD, [facility] CPT-4: 72552 12/05/2016 ([id number]) 67032 EST. PATIENT, LEVEL III Diagnosis: Acute recurrent maxillary sinusitis[ICD10: J01.01] Diagnosis: Dysuria[ICD10: R30.0] Shahida Goldman MD, [facility] CPT-4: 29706 11/28/2016 33091 EST. PATIENT, LEVEL IV Diagnosis: Other acute sinusitis[ICD10: J01.80] Diagnosis: Acute laryngopharyngitis[ICD10: J06.0] Diagnosis: Other allergic rhinitis[ICD10: J30.89] Isabelle Goldman MD, [facility] CPT- 4: 99179 08/15/2016 ([id number]) 82258 EST. PATIENT, LEVEL III Diagnosis: Acute recurrent maxillary sinusitis[ICD10: J01.01] Diagnosis: Low back pain[ICD10: M54.5] Shahida Goldman MD, [facility] CPT-4: 00322 06/07/2016 ([id number]) Miscellaneous no charge Diagnosis: Essential (primary) hypertension[ICD10: I10] Shahida Goldman MD, [facility] CPT-4: 71873 03/15/2016 25408 EST. PATIENT, LEVEL IV Diagnosis: Essential (primary) hypertension[ICD10: I10] Diagnosis: Headache[ICD10: R51] Diagnosis: Generalized anxiety disorder[ICD10: F41.1] Shahida Goldman MD, [facility] CPT-4: 38981 03/14/2016 30249 EST. PATIENT, LEVEL III Diagnosis: Laceration without foreign body, left lower leg, initial encounter[ICD10: S81.812A] Isabelle Goldman MD, [facility] CPT-4: 19338 02/22/2016 ([id number]) 03749 EST. PATIENT, LEVEL III Diagnosis: Acute recurrent maxillary sinusitis[ICD10: J01.01] Diagnosis: Cough[ICD10: R05] Diagnosis: Allergic rhinitis due to pollen[ICD10: J30.1] Shahida Goldman MD, [facility] CPT-4: 96459 12/07/2015 ([id number]) 75034 EST. PATIENT, LEVEL IV Diagnosis: Essential (primary) hypertension[ICD10: I10] Diagnosis: Acute recurrent maxillary sinusitis[ICD10: J01.01] Diagnosis: Generalized anxiety disorder[ICD10: F41.1] Diagnosis: Cervicalgia[ICD10: M54.2] Diagnosis: Generalized intra-abdominal and pelvic swelling, mass and lump[ICD10: R19.07] Melba Goldman MD, [facility] CPT-4: 49277 11/24/2015 68649 EST. PATIENT, LEVEL III Diagnosis: Other migraine, intractable, without status migrainosus[ICD10: G43.819] Isabelle Goldman MD, [facility] CPT-4: 76825 08/27/2015 27925 EST. PATIENT, LEVEL III Diagnosis: Acute recurrent maxillary sinusitis[ICD10: J01.01] Diagnosis: Candidal stomatitis[ICD10: B37.0] Diagnosis: Acute laryngopharyngitis[ICD10: J06.0] Isabelle Goldman MD, [facility] CPT- 4: 79157 08/10/2015 07793 EST. PATIENT, LEVEL III Diagnosis: Superficial foreign body of left hand, initial encounter[ICD10: S60.552A] Melba Goldman MD, [facility] CPT-4: 84661 07/28/2015 ([id number]) 60037 EST. PATIENT, LEVEL III Diagnosis: Essential (primary) hypertension[ICD10: I10] Diagnosis: Tinea cruris[ICD10: B35.6] Diagnosis: Abnormal levels of other serum enzymes[ICD10: R74.8] Shahida Goldman MD, [facility] CPT-4: 03788 06/11/2015 ([id number]) 48425 EST. PATIENT, LEVEL IV Diagnosis: ESSENTIAL HYPERTENSION[ICD9: 401.9] Diagnosis: Hypothyroid[ICD9: 244.9] Diagnosis: ALLERGIC RHINITIS[ICD9: 477.9] Diagnosis: Anxiety[ICD9: 300.00] Diagnosis: Sleep apnea[ICD9: 780.57] Shahida Goldman MD, [facility] CPT-4: 29797 03/19/2015 ([id number]) 04554 EST. PATIENT, LEVEL III Diagnosis: ACUTE SINUSITIS[ICD9: 461.9] Celi Goldman MD, [facility] CPT-4: 54431 01/07/2015 ([id number]) 49746 EST. PATIENT, LEVEL III Diagnosis: Conjunctivitis[ICD9: 372.30] Shahida Goldman MD, [facility] CPT-4: 85872 09/23/2014 69614 EST. PATIENT, LEVEL II Diagnosis: Noninfected skin tear of leg[ICD9: 891.0] Shahida Goldman MD, [facility] CPT-4: 11782 08/05/2014 ([id number]) 38619 EST. PATIENT, LEVEL III Diagnosis: Chronic maxillary sinusitis[ICD9: 473.0] Shahida Goldman MD, [facility] CPT-4: 74714 06/23/2014 43367 EST. PATIENT, LEVEL II Diagnosis: Headache[ICD9: 784.0] Shahida Goldman MD, [facility] CPT-4: 90152 06/05/2014 ([id number]) 11129 EST. PATIENT, LEVEL III Diagnosis: Abrasion of right leg[ICD9: 916.0] Diagnosis: Headache[ICD9: 784.0] Diagnosis: ALLERGIC RHINITIS[ICD9: 477.9] Shahida Goldman MD, [facility] CPT-4: 66366 04/03/2014 83978 EST. PATIENT, LEVEL II Diagnosis: Tinea corporis[ICD9: 110.5] Diagnosis: Exposure to scabies[ICD9: V01.89] Shahida Goldman MD, [facility] CPT- 4: 53498 03/07/2014 ([id number]) 25143 EST. PATIENT, LEVEL III Diagnosis: ESSENTIAL HYPERTENSION[SNOMED: 59060706] Diagnosis: OSTEOARTH NOS-UNSPEC[ICD9: 715.90] Diagnosis: Lumbago[ICD9: 724.2] Diagnosis: Cervicalgia[ICD9: 723.1] Shahida Goldman MD, [facility] CPT-4: 54713 11/21/2013 ([id number]) 12140 EST. PATIENT, LEVEL III Diagnosis: DEPRESSIVE DISORDER NEC[ICD9: 311] Diagnosis: Paronychia[ICD9: 681.9] Melba Goldman MD, [facility] CPT-4: 09787 09/24/2013 ([id number]) 36204 EST. PATIENT, LEVEL III Diagnosis: Paronychia[ICD9: 681.9] Diagnosis: Cellulitis[ICD9: 682.9] Melba Goldman MD, [facility] CPT-4: 69384 09/19/2013 ([id number]) 02498 EST. PATIENT, LEVEL III Diagnosis: Conjunctivitis[ICD9: 372.30] Diagnosis: Thrush[ICD9: 112.0] Shahida Goldman MD, [facility] CPT-4: 69420 08/05/2013 ([id number]) 23307 EST. PATIENT, LEVEL III Diagnosis: ACUTE MAXILLARY SINUSITIS[ICD9: 461.0] Diagnosis: COUGH[ICD9: 786.2] Diagnosis: Insomnia[ICD9: 780.52] Diagnosis: ESOPHAGEAL REFLUX[ICD9: 530.81] Melba Goldman MD, [facility] CPT-4: 90478 07/10/2013 ([id number]) Miscellaneous no charge Diagnosis: ESSENTIAL HYPERTENSION[SNOMED: 51867832] Melba Goldman MD, [facility] CPT-4: 11008 05/13/2013 ([id number]) 65868 EST. PATIENT, LEVEL IV Diagnosis: ESSENTIAL HYPERTENSION[SNOMED: 96775372] Diagnosis: HYPOTHYROIDISM[ICD9: 244.9] Diagnosis: OSTEOARTH NOS-UNSPEC[ICD9: 715.90] Melba Goldman MD, [facility] CPT- 4: 26532 05/07/2013 ([id number]) 64494 EST. PATIENT, LEVEL IV Diagnosis: Osteoarthritis[ICD9: 715.90] Diagnosis: Knee pain, bilateral[ICD9: 719.46] Diagnosis: Hip pain[ICD9: 719.45] Melba Goldman MD, [facility] CPT-4: 48699 12/03/2012 ([id number]) 46443 EST. PATIENT, LEVEL III Diagnosis: Thrush[ICD9: 112.0] Melba Goldman MD, [facility] CPT-4: 98073 09/24/2012 ([id number]) 17016 EST. PATIENT, LEVEL IV Diagnosis: ESSENTIAL HYPERTENSION[SNOMED: 95679306] Diagnosis: Thrush[ICD9: 112.0] Diagnosis: Sleep apnea[ICD9: 780.57] Melba Goldman MD, [facility] CPT-4: 27259 09/10/2012 ([id number]) 51216 EST. PATIENT, LEVEL IV Diagnosis: Esophageal reflux[ICD9: 530.81] Diagnosis: Hypothyroid[ICD9: 244.9] Diagnosis: JOINT PAIN-MULT JOINTS[ICD9: 719.49] Diagnosis: ALLERGIC RHINITIS[ICD9: 477.9] Melba Goldman MD, [facility] CPT-4: 12018 08/08/2012 ([id number]) 24808 EST. PATIENT, LEVEL IV Diagnosis: Urinary frequency[ICD9: 788.41] Diagnosis: EDEMA[ICD9: 782.3] Diagnosis: HYPOTHYROIDISM[ICD9: 244.9] Diagnosis: Fatigue[ICD9: 780.79] Melba Goldman MD [facility] CPT-4: 49878 02/15/2012 ([id number]) 27162 EST. PATIENT, LEVEL IV Diagnosis: Abdominal pain[ICD9: 789.00] Diagnosis: Fatigue[ICD9: 780.79] Diagnosis: Nausea[ICD9: 787.02] Melba Goldman MD, [facility] CPT-4: 90981 11/10/2011 [id number] EST. PATIENT, LEVEL IV Diagnosis: ESSENTIAL HYPERTENSION[SNOMED: 02286157] Diagnosis: DIARRHEA[ICD9: 787.91] Diagnosis: DEPRESSIVE DISORDER NEC[ICD9: 311] Diagnosis: Irritable bowel disease[ICD9: 564.1] Melba Goldman MD, [facility] CPT- 4: 67755 08/01/2011 [id number] EST. PATIENT, LEVEL III Diagnosis: ACUTE SINUSITIS[ICD9: 461.9] Diagnosis: Cough[ICD9: 786.2] Sahhida Goldman MD, [facility] CPT-4: 56185 07/14/2011 06086 EST. PATIENT, LEVEL IV Diagnosis: VACCIN FOR INFLUENZA[ICD9: V04.81] Diagnosis: ESSENTIAL HYPERTENSION[SNOMED: 55407177] Diagnosis: GENERALIZED ANXIETY DISEASE[ICD9: 300.02] Diagnosis: SLEEP DISTURBANCES[ICD9: 780.50] Shahida Goldman MD, [facility] CPT- 4: 05070 05/23/2011 73824 EST. PATIENT, LEVEL III Diagnosis: ACUTE SINUSITIS[ICD9: 461.9] Diagnosis: ALLERGIC RHINITIS[ICD9: 477.9] Diagnosis: Cough[ICD9: 786.2] [facility] CPT-4: 67859 05/03/2011 29702 EST. PATIENT, LEVEL IV Diagnosis: ESSENTIAL HYPERTENSION[SNOMED: 21493371] Diagnosis: DEPRESSIVE DISORDER NEC[ICD9: 311] Diagnosis: Fatigue[ICD9: 780.79] Shahida [facility] CPT-4: 98489 04/25/2011 Plan of Care Planned Activity Notes Codes Status Date Visit Plan: Diarrhea - hold the lipitor [...] good probiotic. 01/29/2019 Appointment: Melba Goldman WPtel: [address] [place], [place] [phone] (15 min) Moderate 01/29/2019 Patient Education: Patient [...] acute concerns. 11/13/2018 Appointment: Shahida Manzo WPtel: [phone] [phone] (15 min) Moderate 11/13/2018 Patient Education: Patient [...] call for acute concerns. Hyperlipidemia-check fasting labs Mtwwvviuvauuei-lkwblfp-qdaql labs 10/30/2018 Visit Plan: Hypertension - uncontrolled [...] call for acute concerns. Hyperlipidemia-check fasting labs Uzriwozekmxmjj-kfjpccc-stxrx labs 10/30/2018 Appointment: Shahida Manzo WPtel: [phone] (30 min) Complex 10/30/2018 Patient Education: Patient Medication Summary Completed 10/30/2018 Visit Plan: Conjunctivitis - rx for eye drops/lube sent electronically to the patient's pharmacy. The patient has been instructed to cleanse affected eye with warm washcloth, then place medication into affected eye four times daily. 10/08/2018 Appointment: Shahida Manzo WPtel: [facility]6 [phone] (30 min) Complex 10/08/2018 Patient Education: Patient Medication Summary Completed 10/08/2018 Appointment: Isabelle Orozco WPtel: [phone] [facility] (15 min) Moderate 07/30/2018 Visit Plan: Anxiety [...] acute concerns. 07/16/2018 Appointment: Isabelle Orozco WPtel: [facility]7 [facility] (15 min) Moderate 07/16/2018 Patient Education: Patient [...] of over-medication. 07/10/2018 Appointment: Shahida Manzo WPtel: [address] [place], [place] [phone] (15 min) Moderate 07/10/2018 Patient Education: Patient Medication Summary Completed 07/10/2018 Patient Education: Back Pain Completed 07/10/2018 Visit Plan: Sinusitis - Pt has acute infection - pain in face, maxillary region, Pt informed to use decongestant, RX given to patient, sinus rinses also recommended. Call if symptoms do not show improvement. 05/28/2018 Appointment: Shahida Manzo WPtel: [facility]6 [phone] (30 min) Complex 05/28/2018 Patient Education: Patient [...] acute concerns. 02/07/2018 Appointment: Isabelle Orozco WPtel: [address] [place], [place] [phone] (15 min) [facility] 02/07/2018 Patient Education: Patient Medication Summary Completed [...] less fatigue 01/19/2018 Appointment: Shahida Manzo WPtel: [address] [place], [place] [phone] (15 min) Moderate 01/19/2018 Patient Education: Patient [...] for health care surrogate. 11/23/2017 Appointment: [phone] [facility] - Annual Wellness Visit 11/23/2017 Patient Education: [...] show improvement. 09/12/2017 Appointment: [phone] (15 min) Moderate 09/12/2017 Patient Education: Patient [...] spray. 07/25/2017 Appointment: Isabelle Orozco WPtel: [phone] [facility] (30 min) Complex 07/25/2017 Patient Education: Patient [...] available 06/27/2017 Appointment: Shahida Manzo WPtel: [phone] [phone] (15 min) Moderate 06/27/2017 Patient Education: Patient [...] not improving. 05/08/2017 Appointment: Shahida Manzo WPtel: [phone] [phone] (15 min) Moderate 05/08/2017 Patient Education: Patient [...] show improvement. 03/14/2017 Appointment: Shahida Manzo WPtel: [phone] (15 min) Moderate 03/14/2017 Patient Education: Patient Medication Summary Completed 03/14/2017 Appointment: Shahida Manzo WPtel: [phone] [phone] (15 min) Moderate 02/21/2017 Visit Plan: Abdominal [...] not improving. 02/20/2017 Appointment: Isabelle Orozco WPtel: [facility] [place] (30 min) Complex 02/20/2017 Patient Education: [...] on use 02/06/2017 Appointment: Melba Goldman WPtel: [facility]3 [facility] [place] (15 min) Moderate 02/06/2017 Patient Education: Patient [...] this patient. 12/05/2016 Appointment: Melba Goldman WPtel: [address] [place], [place] [phone] Surgical Procedure 12/05/2016 Patient Education: Patient Medication Summary Completed 12/05/2016 Visit Plan: Sinusitis - Pt has acute infection - pain in face, maxillary region, Pt informed to use decongestant, RX given to patient, sinus rinses also recommended. Call if symptoms do not show improvement. Dysuria- culture urine 11/28/2016 Appointment: Shahida Manzo WPtel: [phone] [phone] (15 min) Moderate 11/28/2016 Patient Education: Patient [...] of control. 11/07/2016 Appointment: Isabelle Orozco WPtel: [address] [place], [place] [phone] [facility] - Annual Wellness Visit 11/07/2016 Patient Education: [...] allergy spray. 08/15/2016 Appointment: Isabelle Orozco WPtel[facility] (15 min) Moderate 08/15/2016 Patient Education: [...] pain use. 06/07/2016 Appointment: Shahida Manzo WPtel: [facility]7 [phone] (10 min) Simple 06/07/2016 Patient Education: Patient [...] office today 03/14/2016 Appointment: Shahida Manzo WPtel: [phone] (15 min) Moderate 03/14/2016 Patient Education: Patient Medication Summary Completed 03/14/2016 Care Plan: COMPLETE CBC AUTOMATED LOINC : 31424-6 Pending 03/14/2016 Visit Plan: Cellulitis - The patient was instructed in appropriate wound care. The patient was instructed to use the antibiotic ointment as per RX. The patient is to call for any change in symptoms, increase in size of the lesion, increase in pain. 02/22/2016 Appointment: Isabel[facility]co [facility]el[phone] (15 min) Moderate 02/22/2016 Patient Education: [...] pt to follow up with specialist at [place] [address] states - she needs to pursue treatment. Anxietly - medications unchanged. colonoscopy with dr. dai 11/24/2015 Appointment: [phone] (30 min) Complex 11/24/2015 Patient Education: Patient Medication Summary Completed 11/24/2015 Patient Education: Obesity Completed 11/24/2015 Patient Education: Hypertension Completed 11/24/2015 Patient Education: .Cervicalgia Neck Pain Completed 11/24/2015 Care Plan: Referral Order SNOMED-CT : [id number] Ordered 11/24/2015 Visit Plan: Acute Migraine - [...] to monitor 06/11/2015 Appointment: Shahida Manzo WPtel: [phone] [place] (15 min) Moderate 06/11/2015 Patient Education: Patient [...] OFFICE Sleep apnea-patient needs new CPAP-will contact [facility] patient 03/19/2015 Visit Plan: Hypertension - elevated [...] OFFICE Sleep apnea-patient needs new CPAP-will contact [facility] patient Pt reports that she uses her [...] OFFICE Sleep apnea-patient needs new CPAP-will contact [facility] patient Pt reports that she uses [...] Patient Medication Summary Completed 01/07/2015 Patient Education: [facility] - Saving AutoInj - 18+ - Dynamic [...] areas dry Exposure to scabies-RX sent to [facility]. 03/07/2014 Appointment: Melba Goldman WPtel: [facility]5 [facility] [place] rash 03/07/2014 Patient Education: Patient Medication [...] change in blood pressure readings at home. Dnfbflr-fwinbzbgunr-qachqknd duragesic patch-appt with Dr Ortiz for pain management 11/21/2013 Appointment: Shahida Manzo WPtel: [phone] Follow up 11/21/2013 Patient Education: Patient Medication Summary Completed 11/21/2013 Patient Education: Hypertension Completed 11/21/2013 Patient Education: .Cervicalgia Neck Pain Completed 11/21/2013 Appointment: Melba Goldman WPtel: [facility]5 [facility] Other 11/19/2013 Appointment: Melba Goldman WPtel: [address] [place], [place] [phone] Follow up 11/06/2013 Appointment: Melba Goldman WPtel: [address] [place], [place] [phone] Lab Draw 10/15/2013 Patient Education: Patient Medication [...] AT BEDTIME 09/24/2013 Appointment: Shahida Manzo WPtel: [facility]5 [facility] [place] [address] Other 09/24/2013 Patient Education: Patient Medication Summary Completed 09/24/2013 Visit Plan: Paronychia/Cellulitis - continue with oral antibiotics as previously directed, return to clinic as previously directed, call for acute change in symptoms, worsening redness, warmth, discharge. 09/19/2013 Appointment: Melba Goldman WPtel: [address] [place], [place] [phone] Other 09/19/2013 Patient Education: Patient Medication Summary Completed 09/19/2013 Visit Plan: Conjunctivitis - rx for eye drops/lube sent electronically to the patient's pharmacy. The patient has been instructed to cleanse affected eye with warm washcloth, then place medication into affected eye four times daily. Thrush-refill nystatin-call if symptoms do not resolve 08/05/2013 Appointment: Shahida Manzo WPtel: [address] [place], [place] [phone] [place] [address] 08/05/2013 Patient Education: Patient Medication Summary Completed [...] improvement. 06/03/2013 Appointment: [phone] Follow [facility] 06/03/2013 Patient Education: Patient Medication Summary Completed 06/03/2013 Patient Education: Hypertension Completed 06/03/2013 Appointment: [phone] [place] Nurse Visit 05/13/2013 Patient Education: Patient [...] of control. 05/07/2013 Appointment: Melba Goldman WPtel: [facility]5 [facility] Follow up 05/07/2013 Patient Education: Patient Medication Summary Completed 05/07/2013 Patient Education: Hypertension Completed 05/07/2013 Patient Education: Patient Medication Summary Completed 04/30/2013 Patient Education: Hypertension Completed 04/30/2013 Visit Plan: Arthritis- occasionally uncontrolled symptoms- recommend pt to take antiinflammatory as directed for pain control. Use tylenol for break through pain symptoms. 12/03/2012 Appointment: Melba Goldman WPtel: [facility]5 [facility] Follow up 12/03/2012 Patient Education: Patient Medication [...] not resolve 09/24/2012 Appointment: Shahida Manzo WPtel: [phone] [facility] 09/24/2012 Patient Education: Patient Medication Summary Completed [...] with diflucan 09/10/2012 Appointment: Melba Goldman WPtel: [facility]5 [facility] Follow up 09/10/2012 Patient Education: Patient Medication [...] pain symptoms. 08/08/2012 Appointment: Shahida Manzo WPtel: [facility] [place] [address] Follow up 08/08/2012 Patient Education: Patient Medication Summary Completed 08/08/2012 Patient Education: Patient Medication Summary Completed 08/07/2012 Patient Education: Hypertension Completed 08/07/2012 Appointment: Melba Goldman WPtel: [facility] [place] Lab Draw 02/16/2012 Patient Education: Patient Medication [...] Needs labs. 02/15/2012 Appointment: [phone] Other 02/15/2012 Patient Education: Patient Medication Summary Completed 02/15/2012 Visit Plan: Abdominal pain - ultrasound tomorrow AM nothing to eat before the ultrasound from 11pm tonight bland diet. Nausea - worse with fatty foods, recommended low fat/bland diet, call if symptoms worsening. 11/10/2011 Appointment: Melba Goldman WPtel: [phone] [facility] Other 11/10/2011 Patient Education: Patient Medication Summary [...] stools. 08/01/2011 Appointment: Melba Goldman WPtel: [phone] [facility] Other 08/01/2011 Patient Education: Patient Medication Summary Completed 08/01/2011 Patient Education: High Blood Pressure: Essential Hypertension Completed 08/01/2011 Visit Plan: Sinusitis - Pt has acute infection - pain in face, maxillary region, Pt informed to use decongestant, RX given to patient, sinus rinses also recommended. Call if symptoms do not show improvement. Cough- kishore zurita 07/14/2011 Appointment: Shahida Manzo WPtel: [address] [place] [address] Other 07/14/2011 Patient Education: Patient Medication Summary [...] the office. 05/23/2011 Appointment: Shahida Manzo WPtel: [address] [place], [place] [phone] Other 05/23/2011 Patient Education: Patient Medication Summary [...] cough med 05/03/2011 Appointment: Shahida Manzo WPtel: [facility]8 [address] [facility] 05/03/2011 Patient Education: Patient Medication Summary Completed [...] if we can imrpove her symptoms. 04/25/2011 Visit Plan: Hypertension - fairlywell controlled [...] the plan with the nurse practicioner. 04/25/2011 Appointment: Shaihda Manzo WPtel: [address] [place], [place] [phone] Other 04/25/2011 Patient Education: Patient Medication Summary [...] office if the symptoms are not improving. LOSARTAN 50MG DAILY MONITOR BLOOD PRESSURE AND [...] call for acute concerns. Hyperlipidemia-check fasting labs Slpebfehzpndba-fkwtsgh-zzcum labs . Sinusitis - Pt has acute infection - pain in face, maxillary region, Pt informed to use decongestant, RX given to patient, sinus rinses also recommended. Call if symptoms do not show improvement. . UTI - pt with positive urinalysis [...] nystatin-call if symptoms do not resolve . Medicare Exam - today we discussed [...] based on previous levels of control. . Paronychia-continue abx as previously prescribed. ROCEPHIN [...] this patient. ADD ABILIFY 2MG AT BEDTIME hold the lipitor x 2 weeks - [...] - this is a good probiotic. . 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 Gentamicin nasal spray to [facility] Increase prilosec to twice daily . Sinusitis [...] uncontrolled bleeding. Patient verbalized understandig of plan. LOSARTAN 50MG DAILY MONITOR BLOOD PRESSURE AND [...] call for acute concerns. Hyperlipidemia-check fasting labs Gkmoeeyadtronn-gxodtcl-frqee labs TAPER OFF OF CYMBALTA-TAKE EVERY OTHER DAY [...] OFFICE Sleep apnea-patient needs new CPAP-will contact [facility] patient TAPER OFF OF CYMBALTA-TAKE EVERY OTHER [...] OFFICE Sleep apnea-patient needs new CPAP-will contact [facility] patient Pt reports that she uses [...] OFFICE Sleep apnea-patient needs new CPAP-will contact [facility] patient Pt reports that she uses her [...] in the nasal steroid allergy spray. . Wound Instructions - Pt was instructed [...] if symptoms do not show improvement. . Wound Instructions - Pt was instructed to keep the wound clean, wash with antibacterial soap, use triple antibiotic ointment, call if redness, pustular drainage, or any other acute concerns. . Acute Migraine - pt has chronic migraine headaches, but comes into clinic today complaining of intractable migraine headache symptoms. I have recommended changes to the chronic symptoms management and the pt has been given the following acute treatment in clinic today: . DX sinusitis - discussed expected course [...] also provided for patient. Cough-refill cough med Rocephin and Kenalog . Arthritis- occasionally uncontrolled [...] benefit from CPAP-improved sleep, less fatigue . Paronychia/Cellulitis - continue with oral antibiotics as previously directed, return to clinic as previously directed, call for acute change in symptoms, worsening redness, warmth, discharge. TAKE A PROBIOTIC TWICE DAILY WHILE ON THE ANTIBIOTIC . Sinusitis - chronic - pain in face, maxillary region, Pt informed to use decongestant, RX given to patient, sinus rinses also recommended. Call if symptoms do not show improvement. . Abdominal pain - ultrasound tomorrow AM nothing to eat before the ultrasound from 11pm tonight bland diet. Nausea - worse with fatty foods, recommended low fat/bland diet, call if symptoms worsening. . Hypertension - well controlled - continue [...] diet to bulk up the stools. . Skin tears, Cellulitis - The patient [...] areas dry Exposure to scabies-[facility]. rocephin/kenalog . Sinusitis - Pt has [...] daily-dose given in the office today . Hypertension - fairlywell controlled - due [...] if we can imrpove her symptoms. . URI - Pt advised to increase [...] if blood pressure remains elevated . . Hypertension - well controlled - continue [...] pt to follow up with specialist at [address] - she needs to pursue treatment. Anxietly - medications unchanged. colonoscopy with dr. dai . HTN-improved today-no change in medications Tinea-start clotrimazole and diflucan Elevated ALT-check labs today to monitor . Hypertension - well controlled - continue with current medications, continue with no added salt diet. Pt has been encouraged to exercise daily. The pt has been advised to call the office if there are any acute concerns about change in blood pressure readings at home. Makgnrm-zfeblsjpsov-wcdjynes duragesic patch-appt with Dr Ortiz for pain [...] medication into affected eye four times daily. . Trigger Points - Injected trigger points [...] do not show improvement. Cough-tessalon pearles . Cellulitis - The patient was instructed [...] the plan with the nurse practicioner. . Sinusitis - Pt has acute infection - pain in face, maxillary region, Pt informed to use decongestant, RX given to patient, sinus rinses also recommended. Call if symptoms do not show improvement. Chronic back pain-refill hydrocodone for prn breakthrough pain use. . Pt complains of a splinter in [...] symptoms do not show improvement. Dysuria-culture urine . Diarrhea - recommended bland diet, low [...]
--- OUTSIDE RECORDS SUMMARY | 2019-03-08 10:32 | XMS REPORT | CCD ---
Author Author [facility] Address [address] [place] [address] Phone Care Team Providers Care Mobile Architect Name Role Phone PP Unavailable CCM Unavailable Summary Purpose Interface Exchange Insurance Providers Payer name Policy type / Coverage type Covered democrat ID Effective Begin Date Effective End Date [employer] Medicare Part B [id number] Unknown Family history Son Diagnosis Age At Onset Crohn's disease Unknown Brother Diagnosis Age At Onset Cardiovascular disease Unknown Mother Diagnosis Age At Onset Hypertension Unknown Father Diagnosis Age At Onset Cardiovascular disease Unknown Social History Social History Element Codes Description Effective Dates Marital status Unknown 04/22/2011 Number of children Unknown 3 1 son -Crohns 04/22/[address]: 660152207 Nonsmoker 04/22/2011 Allergies, Adverse Reactions, Alerts Substance [...] Fill Instructions piroxicam 20 mg capsule RxNorm: 310693 TAKE ONE CAPSULE BY MOUTH DAILY 02/01/2019 05/31/2019 Active hydrochlorothiazide 25 mg tablet RxNorm: 508112 Tablet(s) TAKE ONE TABLET BY MOUTH DAILY 01/29/2019 10/25/2019 Active hydrocodone 10 mg-acetaminophen 325 mg tablet RxNorm: 563770 Tablet(s) PO TAKE ONE TO TWO TABLETS BY MOUTH EVERY 6 HOURS NEEDED FOR PAIN 01/17/2019 01/31/2019 Inactive trazodone 50 mg tablet RxNorm: 233579 TAKE ONE AND ONE-HALF (1 1/2) TABLETS BY MOUTH AT BEDTIME. MAY INCREASE TO 2 TABLETS AT BEDTIME NEEDED 12/13/2018 04/01/2019 Active losartan 100 mg tablet RxNorm: 040731 1 Tablet(s) PO daily 11/13/2018 05/11/2019 Active hydrocodone 10 mg-acetaminophen 325 mg tablet RxNorm: 988805 Tablet(s) PO TAKE ONE TO TWO TABLETS BY MOUTH EVERY 6 HOURS NEEDED FOR PAIN 11/13/2018 11/27/2018 Inactive Synthroid 112 mcg tablet RxNorm: 485978 1 Tablet(s) PO daily 11/01/2018 04/29/2019 Active Brand name only! Dosage change! Synthroid 112 mcg tablet RxNorm: 474128 1 Tablet(s) PO daily 11/01/2018 10/31/2018 Inactive Brand name only! Dosage change! losartan 50 mg tablet RxNorm: 986945 1 Tablet(s) PO daily 10/30/2018 11/12/2018 Inactive Tamiflu 75 mg capsule RxNorm: 186585 1 Capsule(s) PO daily 10/30/2018 11/08/2018 Inactive Synthroid 100 mcg tablet RxNorm: 334601 1 Tablet(s) PO daily 10/30/2018 10/31/2018 Inactive Brand name only! Lexapro 20 mg tablet RxNorm: 871041 TAKE ONE AND ONE-HALF TABLET BY MOUTH DAILY 10/23/2018 10/17/2019 Active alprazolam 0.25 mg tablet RxNorm: 686020 1 Tablet(s) PO TID as needed 10/10/2018 01/07/2019 Inactive polymyxin B sulfate 10,000 unit-trimethoprim 1 mg/mL eye drops RxNorm: 711248 2 Drop(s) ophthalmic (eye) QID 10/08/2018 10/14/2018 Inactive hydrocodone 10 mg-acetaminophen 325 mg tablet RxNorm: 711895 Tablet(s) PO TAKE ONE TO TWO TABLETS BY MOUTH EVERY 6 HOURS NEEDED FOR PAIN 09/11/2018 09/25/2018 Inactive piroxicam 20 mg capsule RxNorm: 294722 TAKE ONE CAPSULE BY MOUTH DAILY 08/09/2018 01/05/2019 Inactive trazodone 50 mg tablet RxNorm: 062698 TAKE ONE AND ONE-HALF (1 1/2) TABLET BY MOUTH AT BEDTIME. MAY INCREASE TO 2 TABLETS AT BEDTIME NEEDED 08/02/2018 11/19/2018 Inactive Nexium 40 mg capsule,delayed release RxNorm: 931527 TAKE ONE CAPSULE BY MOUTH TWICE A DAY 07/23/2018 11/19/2018 Inactive Bystolic 5 mg tablet RxNorm: 912963 1 Tablet(s) PO daily to take with 10 mg daily to equal 15mg daily 07/17/2018 10/29/2018 Inactive alprazolam 0.25 mg tablet RxNorm: 160766 1 Tablet(s) PO TID as needed 07/16/2018 10/29/2018 Inactive hydrocodone 10 mg-acetaminophen 325 mg tablet RxNorm: 902626 Tablet(s) PO TAKE ONE TO TWO TABLETS BY MOUTH EVERY 6 HOURS NEEDED FOR PAIN 07/10/2018 07/24/2018 Inactive prednisone 20 mg tablet RxNorm: 936595 1 Tablet(s) PO BID 07/10/2018 07/14/2018 Inactive Phenergan with Codeine Syrup RxNorm: 5-10 Milliliter(s) PO Q6 PRN 06/28/2018 01/28/2019 Inactive prednisone 20 mg tablet RxNorm: 799278 2 Tablet(s) PO daily 05/31/2018 06/04/2018 Inactive prednisone 20 mg tablet RxNorm: 244039 2 Tablet(s) PO daily 05/31/2018 05/30/2018 Inactive ceftriaxone 500 mg solution for injection RxNorm: 0478098 Inj 05/28/2018 05/28/2018 Inactive doxycycline hyclate 100 mg tablet RxNorm: 6963939 1 Tablet(s) PO BID 05/28/2018 06/06/2018 Inactive Kenalog 40 mg/mL suspension for injection RxNorm: 8736761 Milliliter(s) Inj 05/28/2018 05/28/2018 Inactive hydrocodone 10 mg-acetaminophen 325 mg tablet RxNorm: 745299 Tablet(s) PO TAKE ONE TO TWO TABLETS BY MOUTH EVERY 6 HOURS NEEDED FOR PAIN 05/09/2018 05/23/2018 Inactive alprazolam 0.25 mg tablet RxNorm: 017771 1 Tablet(s) PO daily as needed 04/25/2018 07/15/2018 Inactive Bystolic 10 mg tablet RxNorm: 053458 TAKE ONE TABLET BY MOUTH DAILY 04/16/2018 09/12/2018 Inactive hydrocodone 10 mg-acetaminophen 325 mg tablet RxNorm: 238264 Tablet(s) PO TAKE ONE TO TWO TABLETS BY MOUTH EVERY 6 HOURS NEEDED FOR PAIN 03/06/2018 03/20/2018 Inactive trazodone 50 mg tablet RxNorm: 595401 TAKE ONE AND ONE-HALF (1 1/2) TABLET BY MOUTH AT BEDTIME. MAY INCREASE TO 2 TABLETS AT BEDTIME NEEDED 02/23/2018 06/12/2018 Inactive mupirocin 2 % topical ointment RxNorm: 213584 1 TOP BID 02/09/2018 05/27/2018 Inactive Zofran 4 mg tablet RxNorm: 670743 1 Tablet(s) PO TID as needed 02/08/2018 No Stop Date Active Keflex 500 mg capsule RxNorm: 224625 1 Capsule(s) PO TID 02/07/2018 02/13/2018 Inactive alprazolam 0.25 mg tablet RxNorm: 808398 1 Tablet(s) PO daily as needed 01/24/2018 07/09/2018 Inactive hydrocodone 10 mg-acetaminophen 325 mg tablet RxNorm: 214515 Tablet(s) PO TAKE ONE TO TWO TABLETS BY MOUTH EVERY 6 HOURS NEEDED FOR PAIN 01/19/2018 02/02/2018 Inactive hydrochlorothiazide 25 mg tablet RxNorm: 182208 Tablet(s) TAKE ONE TABLET BY MOUTH DAILY 01/19/2018 01/19/2018 Inactive Kenalog 40 mg/mL suspension for injection RxNorm: 2083257 1 Milliliter(s) Inj 01/19/2018 01/19/2018 Inactive piroxicam 20 mg capsule RxNorm: 418132 1 Capsule(s) PO daily 01/19/2018 07/17/2018 Inactive D/C ORDER FOR HCTZ ceftriaxone 500 mg solution for injection RxNorm: 9523439 500 Milligram(s) Inj 01/19/2018 01/19/2018 Inactive Nexium 40 mg capsule,delayed release RxNorm: 676384 TAKE ONE CAPSULE BY MOUTH TWICE A DAY 01/18/2018 04/17/2018 Inactive Nexium 40 mg capsule,delayed release RxNorm: 417354 TAKE ONE CAPSULE BY MOUTH TWICE A DAY 01/15/2018 04/14/2018 Inactive ciprofloxacin 0.3 % eye drops RxNorm: 351038 2 Drop(s) ophthalmic (eye) Q2H while awake x 2 days, then Q4H x 5 days 11/23/2017 05/27/2018 Inactive Keflex 500 mg capsule RxNorm: 989179 1 Capsule(s) PO TID 11/23/2017 11/29/2017 Inactive hydrocodone 10 mg-acetaminophen 325 mg tablet RxNorm: 440794 Tablet(s) PO TAKE ONE TO TWO TABLETS BY MOUTH EVERY 6 HOURS NEEDED FOR PAIN 10/30/2017 11/13/2017 Inactive Augmentin 500 mg-125 mg tablet RxNorm: 740151 1 Tablet(s) PO TID 10/27/2017 11/05/2017 Inactive alprazolam 0.25 mg tablet RxNorm: 890933 1 Tablet(s) PO daily as needed 10/26/2017 04/24/2018 Inactive trazodone 50 mg tablet RxNorm: 473667 TAKE ONE AND ONE-HALF (1 1/2) TABLET BY MOUTH AT BEDTIME. MAY INCREASE TO 2 TABLETS AT BEDTIME NEEDED 09/25/2017 02/03/2018 Inactive Lexapro 20 mg tablet RxNorm: 090484 TAKE ONE AND ONE-HALF TABLET BY MOUTH DAILY 09/15/2017 09/09/2018 Inactive Flagyl 500 mg tablet RxNorm: 124921 1 Tablet(s) PO TID 09/12/2017 09/21/2017 Inactive promethazine 25 mg tablet RxNorm: 658073 1 Tablet(s) PO TID as needed nausea and vomitting THIS WILL MAKE YOU SLEEPY 09/12/2017 11/08/2017 Inactive Keflex 500 mg capsule RxNorm: 107293 1 Capsule(s) PO QID 08/25/2017 08/31/2017 Inactive [SAVINGS FOR UNINSURED PATIENTS -- BIN:[id number], PCN: [id number], [facility], ID# [id number], Process claim through [employer], for questions: . THIS IS NOT INSURANCE.] alprazolam 0.25 mg tablet RxNorm: 885619 1 Tablet(s) PO daily as needed 07/31/2017 04/24/2018 Inactive prednisone 20 mg tablet RxNorm: 176168 2 Tablet(s) PO daily 07/25/2017 07/29/2017 Inactive Augmentin 500 mg-125 mg tablet RxNorm: 511173 1 Tablet(s) PO TID 07/25/2017 08/03/2017 Inactive trazodone 50 mg tablet RxNorm: 689951 TAKE ONE AND ONE-HALF (1 1/2) TABLET BY MOUTH AT BEDTIME. MAY INCREASE TO 2 TABLETS AT BEDTIME NEEDED 06/30/2017 09/03/2017 Inactive Bystolic 10 mg tablet RxNorm: 979663 TAKE ONE TABLET BY MOUTH DAILY 06/30/2017 2017 Inactive hydrochlorothiazide 25 mg tablet RxNorm: 177156 TAKE ONE TABLET BY MOUTH DAILY 06/30/2017 01/18/2018 Inactive Flagyl 500 mg tablet RxNorm: 637223 1 Tablet(s) PO TID 06/27/2017 07/03/2017 Inactive Phenergan with Codeine Syrup RxNorm: 5-10 Milliliter(s) PO Q6 PRN 06/27/2017 11/15/2017 Inactive Levaquin 500 mg tablet RxNorm: 645706 1 Tablet(s) PO daily 06/27/2017 07/03/2017 Inactive Kenalog 40 mg/mL suspension for injection RxNorm: 1601604 1 Milliliter(s) Inj 06/27/2017 06/27/2017 Inactive Nexium 40 mg capsule,delayed release RxNorm: 751255 1 Capsule(s) PO BID TAKE ONE CAPSULE BY MOUTH BID 05/22/2017 09/18/2017 Inactive Nexium 40 mg capsule,delayed release RxNorm: 195096 1 Capsule(s) PO BID TAKE ONE CAPSULE BY MOUTH BID 05/22/2017 05/21/2017 Inactive hydrocodone 10 mg-acetaminophen 325 mg tablet RxNorm: 806132 Tablet(s) PO TAKE ONE TO TWO TABLETS BY MOUTH EVERY 6 HOURS NEEDED FOR PAIN 05/17/2017 06/15/2017 Inactive Nexium 40 mg capsule,delayed release RxNorm: 543861 Capsule(s) TAKE ONE CAPSULE BY MOUTH BID 05/17/2017 05/21/2017 Inactive alprazolam 0.25 mg tablet RxNorm: 564682 1 Tablet(s) PO daily as needed 05/03/2017 07/01/2017 Inactive Levaquin 500 mg tablet RxNorm: 466978 1 Tablet(s) PO daily 04/20/2017 04/26/2017 Inactive clotrimazole 1 % topical cream RxNorm: 307511 1 Application TOP BID 04/20/2017 11/07/2017 Inactive Kenalog 40 mg/mL suspension for injection RxNorm: 6956906 Milliliter(s) Inj 04/20/2017 04/20/2017 Inactive nystatin 100,000 unit/gram topical powder RxNorm: 274372 1 Gram(s) APPLY TOPICALLY TWO TIMES A DAY 04/10/2017 07/08/2017 Inactive trazodone 50 mg tablet RxNorm: 241178 TAKE ONE AND ONE-HALF (1 1/2) TABLET BY MOUTH AT BEDTIME. MAY INCREASE TO 2 TABLETS AT BEDTIME NEEDED 03/28/2017 06/23/2017 Inactive Augmentin 875 mg-125 mg tablet RxNorm: 846946 1 Tablet(s) PO BID 03/14/2017 03/20/2017 Inactive Kenalog 40 mg/mL suspension for injection RxNorm: 4569817 1 Milliliter(s) Inj 03/14/2017 03/14/2017 Inactive Lexapro 20 mg tablet RxNorm: 200223 1.5 Tablet(s) PO daily 03/08/2017 03/07/2017 Inactive Lexapro 20 mg tablet RxNorm: 640447 1.5 Tablet(s) PO daily 03/08/2017 07/05/2017 Inactive alprazolam 0.25 mg tablet RxNorm: 827425 1 Tablet(s) PO daily as needed 02/23/2017 04/23/2017 Inactive (Response to an electronic controlled substance refill request - RxReferenceNumber: [id number]) Flagyl 500 mg tablet RxNorm: 406672 1 Tablet(s) PO TID 02/20/2017 03/01/2017 Inactive promethazine 25 mg tablet RxNorm: 058257 1 Tablet(s) PO TID as needed nausea 02/20/2017 03/01/2017 Inactive Cipro 500 mg tablet RxNorm: 174774 1 Tablet(s) PO BID 02/20/2017 03/01/2017 Inactive Flagyl 500 mg tablet RxNorm: 957575 1 Tablet(s) PO TID 02/09/2017 02/15/2017 Inactive Trintellix 10 mg tablet RxNorm: 6318065 1 Tablet(s) PO QAM 02/06/2017 03/07/2017 Inactive Efudex 5 % topical cream RxNorm: 563130 1 Application TOP BID use on skin spot on nose 02/06/2017 02/15/2017 Inactive Bystolic 10 mg tablet RxNorm: 430835 TAKE ONE TABLET BY MOUTH DAILY 02/03/2017 06/02/2017 Inactive Imitrex 50 mg tablet RxNorm: 891259 TAKE ONE TABLET BY MOUTH EVERY 8 HOURS NEEDED MAY REPEAT IN 1 HOUR OF INITIAL DOSE. DISCONTINUE FIORICET 12/22/2016 02/19/2017 Inactive Nexium 40 mg capsule,delayed release RxNorm: 815290 TAKE ONE CAPSULE BY MOUTH EVERY DAY 12/21/2016 05/16/2017 Inactive Lexapro 20 mg tablet RxNorm: 927813 Tablet(s) TAKE ONE TABLET BY MOUTH DAILY 12/05/2016 02/05/2017 Inactive Augmentin 875 mg-125 mg tablet RxNorm: 510631 1 Tablet(s) PO BID 11/28/2016 12/04/2016 Inactive ceftriaxone 500 mg solution for injection RxNorm: 5120148 1 Milliliter(s) Inj 11/28/2016 11/28/2016 Inactive hydrocodone 10 mg-acetaminophen 325 mg tablet RxNorm: 423952 Tablet(s) PO TAKE ONE TO TWO TABLETS BY MOUTH EVERY 6 HOURS NEEDED FOR PAIN 11/28/2016 05/16/2017 Inactive (Appended: Controlled substance eRx refill - RxReferenceNumber: [id number]) prednisone 20 mg tablet RxNorm: 713041 2 Tablet(s) PO daily 11/28/2016 12/02/2016 Inactive trazodone 50 mg tablet RxNorm: 970655 Tablet(s) TAKE 1 AND 1/2 TABLETS EVERY NIGHT AT BEDTIME , MAY INCREASE TO 2 TABLETS AT BEDTIME NEEDED 11/21/2016 11/20/2016 Inactive Synthroid 100 mcg tablet RxNorm: 871689 1 Tablet(s) PO daily 11/21/2016 05/19/2017 Inactive Brand name only! trazodone 50 mg tablet RxNorm: 370409 TAKE 1 AND 1/2 TABLETS EVERY NIGHT AT BEDTIME , MAY INCREASE TO 2 TABLETS AT BEDTIME NEEDED 11/21/2016 08/01/2018 Inactive Synthroid 100 mcg tablet RxNorm: 917627 1 Tablet(s) PO daily TAKE ONE TABLET BY MOUTH DAILY 11/08/2016 11/20/2016 Inactive ceftriaxone 500 mg solution for injection RxNorm: 2357374 Inj 11/07/2016 11/07/2016 Inactive Kenalog 40 mg/mL suspension for injection RxNorm: 0026833 Milliliter(s) Inj 11/07/2016 11/07/2016 Inactive Xanax 0.25 mg tablet RxNorm: 687493 1 Tablet(s) PO daily as needed 10/31/2016 05/02/2017 Inactive alprazolam 0.25 mg tablet RxNorm: 709857 1 Tablet(s) PO daily as needed 10/21/2016 12/18/2016 Inactive (Response to an electronic controlled substance refill request - RxReferenceNumber: [id number]) hydrochlorothiazide 25 mg tablet RxNorm: 500927 TAKE ONE TABLET BY MOUTH DAILY 10/11/2016 04/08/2017 Inactive Xanax 0.25 mg tablet RxNorm: 645743 1 Tablet(s) PO daily as needed 08/23/2016 10/19/2016 Inactive Flonase Allergy Relief 50 mcg/actuation nasal spray,suspension RxNorm: 7704433 1 [place] NASAL daily 08/15/2016 No Stop Date Active amoxicillin 500 mg capsule RxNorm: 876596 1 Capsule(s) PO TID 08/15/2016 08/24/2016 Inactive Bystolic 10 mg tablet RxNorm: 756854 TAKE ONE TABLET BY MOUTH DAILY 08/01/2016 12/28/2016 Inactive trazodone 50 mg tablet RxNorm: 571945 TAKE 1 AND 1/2 TABLETS EVERY NIGHT AT BEDTIME , MAY INCREASE TO 2 TABLETS AT BEDTIME NEEDED 07/25/2016 11/11/2016 Inactive alprazolam 0.25 mg tablet RxNorm: 223743 1 Tablet(s) PO daily as needed 07/25/2016 08/22/2016 Inactive (Response to an electronic controlled substance refill request - RxReferenceNumber: [id number]) Imitrex 50 mg tablet RxNorm: 950364 1 Tablet(s) PO Q8 as needed may repeat x1 dose in 1 hour of inital dose. 07/13/2016 No Stop Date Active Lexapro 20 mg tablet RxNorm: 995683 TAKE 1/2 TABLET BY MOUTH DAILY FOR 10 DAYS, THEN TAKE ONE TABLET BY MOUTH DAILY 06/27/2016 11/23/2016 Inactive Synthroid 100 mcg tablet RxNorm: 775257 TAKE ONE TABLET BY MOUTH DAILY 06/20/2016 11/07/2016 Inactive Augmentin 500 mg-125 mg tablet RxNorm: 526938 1 Tablet(s) PO TID 06/07/2016 06/13/2016 Inactive hydrocodone 10 mg-acetaminophen 325 mg tablet RxNorm: 698963 Tablet(s) PO TAKE ONE TO TWO TABLETS BY MOUTH EVERY 6 HOURS NEEDED FOR PAIN 06/07/2016 11/27/2016 Inactive (Appended: Controlled substance eRx refill - RxReferenceNumber: [id number]) hydrochlorothiazide 25 mg tablet RxNorm: 042021 TAKE ONE TABLET BY MOUTH DAILY 03/14/2016 09/09/2016 Inactive Edarbi 40 mg tablet RxNorm: 1263568 1 Tablet(s) PO daily 03/14/2016 06/06/2016 Inactive trazodone 50 mg tablet RxNorm: 401252 Tablet(s) TAKE 1 AND 1/2 TABLET AT BEDTIME. MAY INCREASE TO 2 TABLETS IF NECESSARY 02/25/2016 07/05/2016 Inactive Imitrex 50 mg tablet RxNorm: 277514 1 Tablet(s) PO Q8 as needed may repeat x1 dose in 1 hour of inital dose. 02/25/2016 07/12/2016 Inactive dc fioricet Xanax 0.25 mg tablet RxNorm: 358568 1 Tablet(s) PO daily as needed 02/24/2016 07/21/2016 Inactive mupirocin 2 % topical ointment RxNorm: 340993 1 TOP BID 02/22/2016 11/08/2017 Inactive Bactrim DS 800 mg-160 mg tablet RxNorm: 771311 1 Tablet(s) PO BID 02/22/2016 03/02/2016 Inactive Fioricet 50 mg-325 mg-40 mg tablet RxNorm: 649919 Tablet(s) TAKE ONE TABLET BY MOUTH EVERY 4 HOURS NEEDED FOR headache 02/12/2016 02/24/2016 Inactive (Response to an electronic controlled substance refill request - RxReferenceNumber: [id number]) Fioricet 50 mg-325 mg-40 mg tablet RxNorm: 155868 Tablet(s) TAKE ONE TABLET BY MOUTH EVERY 4 HOURS NEEDED FOR headache 02/12/2016 02/11/2016 Inactive (Response to an electronic controlled substance refill request - RxReferenceNumber: [id number]) Nexium 40 mg capsule,delayed release RxNorm: 050345 TAKE ONE CAPSULE BY MOUTH EVERY DAY 02/01/2016 10/27/2016 Inactive Bystolic 10 mg tablet RxNorm: 542951 Tablet(s) TAKE ONE TABLET BY MOUTH DAILY 01/06/2016 07/03/2016 Inactive Xanax 0.25 mg tablet RxNorm: 939241 1 Tablet(s) PO daily as needed 12/28/2015 02/23/2016 Inactive Levaquin 500 mg tablet RxNorm: 803682 1 Tablet(s) PO daily take a probiotic daily 12/14/2015 02/11/2016 Inactive Levaquin 500 mg tablet RxNorm: 882051 1 Tablet(s) PO daily take a probiotic daily 12/14/2015 12/13/2015 Inactive prednisone 20 mg tablet RxNorm: 410649 1 Tablet(s) PO BID 12/07/2015 12/13/2015 Inactive Augmentin 875 mg-125 mg tablet RxNorm: 959233 1 Tablet(s) PO BID 12/07/2015 12/13/2015 Inactive ceftriaxone 500 mg solution for injection RxNorm: 6967488 Inj 12/07/2015 12/07/2015 Inactive Phenergan with Codeine Syrup RxNorm: 5-10 Milliliter(s) PO Q6 PRN 12/07/2015 06/26/2017 Inactive alprazolam 0.25 mg tablet RxNorm: 058905 1 Tablet(s) PO daily as needed 11/27/2015 12/25/2015 Inactive (Response to an electronic controlled substance refill request - RxReferenceNumber: [id number]) trazodone 50 mg tablet RxNorm: 746079 TAKE 1 AND 1/2 TABLET AT BEDTIME FOR 2 WEEKS, MAY INCREASE TO 2 TABLETS IF NECESSARY AFTER THAT 11/26/2015 02/24/2016 Inactive ceftriaxone 500 mg solution for injection RxNorm: 2624674 Milliliter(s) Inj 11/24/2015 11/24/2015 Inactive prednisone 10 mg tablet RxNorm: 395787 3 Tablet(s) PO daily 11/24/2015 11/28/2015 Inactive cefdinir 300 mg capsule RxNorm: 623233 1 Capsule(s) PO BID 11/24/2015 11/30/2015 Inactive Kenalog 40 mg/mL suspension for injection RxNorm: 6661154 1 Milliliter(s) Inj 11/24/2015 11/24/2015 Inactive Lexapro 20 mg tablet RxNorm: 328004 TAKE 1/2 TABLET BY MOUTH DAILY FOR 10 DAYS, THEN TAKE ONE TABLET BY MOUTH DAILY 11/23/2015 05/20/2016 Inactive Lipitor 10 mg tablet RxNorm: 764715 Tablet(s) TAKE ONE TABLET BY MOUTH EVERY DAY 10/26/2015 11/06/2016 Inactive Norvasc 10 mg tablet RxNorm: 224116 Tablet(s) PO TAKE ONE TABLET BY MOUTH EVERY DAY 10/26/2015 01/18/2018 Inactive hydrochlorothiazide 25 mg tablet RxNorm: 105277 TAKE ONE TABLET BY MOUTH DAILY 10/20/2015 01/17/2016 Inactive promethazine 25 mg/mL injection solution RxNorm: 503615 Milliliter(s) Inj 08/27/2015 08/27/2015 Inactive ketorolac 60 mg/2 mL intramuscular solution RxNorm: 923890 Milliliter(s) IM 08/27/2015 08/27/2015 Inactive alprazolam 0.25 mg tablet RxNorm: 805550 1 Tablet(s) PO daily as needed 08/27/2015 10/25/2017 Inactive (Response to an electronic controlled substance refill request - RxReferenceNumber: [id number]) Lexapro 20 mg tablet RxNorm: 459347 TAKE 1/2 TABLET BY MOUTH DAILY FOR 10 DAYS, THEN TAKE ONE TABLET BY MOUTH DAILY 08/13/2015 11/10/2015 Inactive Flonase 50 mcg/actuation nasal spray,suspension RxNorm: 088162 PLACE 1 SPRAY IN EACH NOSTRIL DAILY 08/13/2015 02/08/2016 Inactive Augmentin 500 mg-125 mg tablet RxNorm: 045327 1 Tablet(s) PO TID 08/10/2015 08/16/2015 Inactive Kenalog 40 mg/mL suspension for injection RxNorm: 3522981 Milliliter(s) Inj 08/10/2015 08/10/2015 Inactive ceftriaxone 500 mg solution for injection RxNorm: 9744126 Inj 08/10/2015 08/10/2015 Inactive nystatin 100,000 unit/mL oral suspension RxNorm: 335468 4 Milliliter(s) PO QID 08/10/2015 08/16/2015 Inactive trazodone 50 mg tablet RxNorm: 216717 TAKE 1 AND 1/2 TABLET AT BEDTIME FOR 2 WEEKS, MAY INCREASE TO 2 TABLETS IF NECESSARY AFTER THAT 07/31/2015 11/25/2015 Inactive ceftriaxone 500 mg solution for injection RxNorm: 9432628 1 Milliliter(s) Inj 07/28/2015 07/28/2015 Inactive Bactrim DS 800 mg-160 mg tablet RxNorm: 893119 1 Tablet(s) PO BID 07/28/2015 08/06/2015 Inactive Bactroban 2 % topical ointment RxNorm: 360074 1 Application TOP BID 07/28/2015 08/06/2015 Inactive Diflucan 150 mg tablet RxNorm: 396622 1 Tablet(s) PO daily 06/11/2015 06/17/2015 Inactive clotrimazole 1 % topical cream RxNorm: 742044 1 Application TOP BID 06/11/2015 07/10/2015 Inactive Bystolic 10 mg tablet RxNorm: 061239 TAKE ONE TABLET BY MOUTH DAILY 06/08/2015 12/04/2015 Inactive alprazolam 0.25 mg tablet RxNorm: 723621 1 Tablet(s) PO daily as needed 06/01/2015 08/25/2015 Inactive (Response to an electronic controlled substance refill request - RxReferenceNumber: [id number]) Fioricet 50 mg-325 mg-40 mg tablet RxNorm: 853637 Tablet(s) TAKE ONE TABLET BY MOUTH EVERY 4 HOURS NEEDED FOR headache 05/28/2015 06/08/2015 Inactive (Response to an electronic controlled substance refill request - RxReferenceNumber: [id number]) trazodone 50 mg tablet RxNorm: 124634 TAKE 1 AND 1/2 TABLET AT BEDTIME FOR 2 WEEKS, MAY INCREASE TO 2 TABLETS IF NECESSARY AFTER THAT 05/25/2015 08/22/2015 Inactive trazodone 50 mg tablet RxNorm: 379432 TAKE 1 AND 1/2 TABLET AT BEDTIME FOR 2 WEEKS, MAY INCREASE TO 2 TABLETS IF NECESSARY AFTER THAT 05/25/2015 05/24/2015 Inactive Synthroid 100 mcg tablet RxNorm: 401016 TAKE ONE TABLET BY MOUTH DAILY 04/23/2015 01/17/2016 Inactive Lipitor 10 mg tablet RxNorm: 664583 TAKE ONE TABLET BY MOUTH EVERY DAY 04/23/2015 10/25/2015 Inactive Kenalog 40 mg/mL suspension for injection RxNorm: 4771983 Milliliter(s) Inj 03/19/2015 03/19/2015 Inactive Lexapro 20 mg tablet RxNorm: 906696 1 Tablet(s) PO daily 03/19/2015 07/16/2015 Inactive 1/2 tab daily x 10 days then 1 tab daily hydrocodone 10 mg-acetaminophen 325 mg tablet RxNorm: 425813 Tablet(s) PO TAKE ONE TO TWO TABLETS BY MOUTH EVERY 6 HOURS NEEDED FOR PAIN 03/19/2015 06/06/2016 Inactive (Appended: Controlled substance eRx refill - RxReferenceNumber: [id number]) Carafate 1 gram tablet RxNorm: 809811 1 Tablet(s) PO AC & HS 03/19/2015 06/16/2015 Inactive dissolve in water and take as a slurry hydrochlorothiazide 25 mg tablet RxNorm: 410811 1 Tablet(s) PO daily 03/12/2015 09/07/2015 Inactive Nexium 40 mg capsule,delayed release RxNorm: 623698 TAKE ONE CAPSULE BY MOUTH EVERY DAY 02/26/2015 12/22/2015 Inactive Cymbalta 60 mg capsule,delayed release RxNorm: 412607 TAKE ONE CAPSULE BY MOUTH TWICE A DAY 02/23/2015 03/18/2015 Inactive alprazolam 0.25 mg tablet RxNorm: 384619 1 Tablet(s) PO daily as needed 02/11/2015 05/10/2015 Inactive (Response to an electronic controlled substance refill request - RxReferenceNumber: [id number]) trazodone 50 mg tablet RxNorm: 803421 TAKE 1 AND 1/2 TABLET AT BEDTIME FOR 2 WEEKS, MAY INCREASE TO 2 TABLETS IF NECESSARY AFTER THAT 01/27/2015 05/24/2015 Inactive Augmentin 500 mg-125 mg tablet RxNorm: 796819 1 Tablet(s) PO TID 01/07/2015 01/13/2015 Inactive gentamicin 0.3 % eye drops RxNorm: 092191 3 Drop(s) OPH QID 01/07/2015 01/13/2015 Inactive [AttnRPh: Saving apply/adjudicate RxGRP:[id number] RxBIN:[id number] RxPCN: ID#:[id number]] scopolamine 1.5 mg transdermal 72 hour patch RxNorm: 229581 1 Patch TD q72 hours 01/07/2015 11/23/2015 Inactive Synthroid 100 mcg tablet RxNorm: 879784 TAKE ONE TABLET BY MOUTH ONCE A DAY 01/06/2015 04/22/2015 Inactive nystatin 100,000 unit/gram topical powder RxNorm: 519341 APPLY TOPICALLY TWO TIMES A DAY 12/18/2014 03/17/2015 Inactive alprazolam 0.25 mg tablet RxNorm: 236338 TAKE ONE TABLET BY MOUTH DAILY NEEDED 10/30/2014 11/28/2014 Inactive (Response to an electronic controlled substance refill request - RxReferenceNumber: [id number]) alprazolam 0.25 mg tablet RxNorm: 545500 Tablet(s) TAKE ONE TABLET BY MOUTH DAILY 10/30/2014 10/29/2014 Inactive (Response to an electronic controlled substance refill request - RxReferenceNumber: [id number]) Lipitor 10 mg tablet RxNorm: 473424 TAKE ONE TABLET BY MOUTH EVERY DAY 10/30/2014 02/26/2015 Inactive alprazolam 0.25 mg tablet RxNorm: 638057 TAKE ONE TABLET BY MOUTH DAILY 10/07/2014 10/29/2014 Inactive (Response to an electronic controlled substance refill request - RxReferenceNumber: [id number]) alprazolam 0.25 mg tablet RxNorm: 416213 TAKE ONE TABLET BY MOUTH DAILY 10/06/2014 10/07/2014 Inactive (Response to an electronic controlled substance refill request - RxReferenceNumber: [id number]) alprazolam 0.25 mg tablet RxNorm: 302167 Tablet(s) TAKE ONE TABLET BY MOUTH EVERY DAY NEEDED 09/30/2014 10/06/2014 Inactive (Response to an electronic controlled substance refill request - RxReferenceNumber: [id number]) Fioricet 50 mg-325 mg-40 mg tablet RxNorm: 678151 Tablet(s) TAKE ONE TABLET BY MOUTH EVERY 4 HOURS NEEDED FOR headache 09/29/2014 10/12/2014 Inactive (Response to an electronic controlled substance refill request - RxReferenceNumber: [id number]) Bystolic 10 mg tablet RxNorm: 942288 1 Tablet(s) PO daily TAKE ONE TABLET BY MOUTH EVERY DAY 09/29/2014 04/26/2015 Inactive Bystolic 5 mg tablet RxNorm: 857516 TAKE 1 AND 1/2 TABLETS ONCE DAILY 09/24/2014 09/23/2014 Inactive Bystolic 5 mg tablet RxNorm: 397136 Tablet(s) TAKE 1 AND 1/2 TABLETS ONCE DAILY 09/24/2014 09/18/2015 Inactive gentamicin 0.3 % eye drops RxNorm: 745370 3 Drop(s) OPH QID 09/23/2014 09/29/2014 Inactive trazodone 50 mg tablet RxNorm: 498319 TAKE 1 AND 1/2 TABLET AT BEDTIME FOR 2 WEEKS, MAY INCREASE TO 2 TABLETS IF NECESSARY AFTER THAT 09/22/2014 01/26/2015 Inactive Fioricet 50 mg-325 mg-40 mg tablet RxNorm: 458963 TAKE ONE TABLET BY MOUTH EVERY 4 HOURS NEEDED FOR PAIN 09/17/2014 09/28/2014 Inactive (Response to an electronic controlled substance refill request - RxReferenceNumber: [id number]) Duragesic 50 mcg/hr transdermal patch RxNorm: 432313 1 TD q72 hours 08/07/2014 01/06/2015 Inactive [SAVINGS FOR UNINSURED PATIENTS -- BIN:[id number], PCN: ASPROD1, Group: [id number], ID# [id number], Process claim through [employer] Custom, for questions: . THIS IS NOT INSURANCE.] alprazolam 0.25 mg tablet RxNorm: 433850 TAKE ONE TABLET BY MOUTH EVERY DAY NEEDED 07/31/2014 08/29/2014 Inactive (Response to an electronic controlled substance refill request - RxReferenceNumber: [id number]) alprazolam 0.25 mg tablet RxNorm: 406028 1 Tablet(s) PO daily as needed TAKE ONE TABLET BY MOUTH EVERY DAY NEEDED 07/30/2014 08/01/2014 Inactive (Response to an electronic controlled substance refill request - RxReferenceNumber: [id number]) Diflucan 150 mg tablet RxNorm: 087517 1 Tablet(s) PO daily 06/25/2014 07/01/2014 Inactive [SAVINGS FOR UNINSURED PATIENTS -- BIN:[id number], PCN: ASPROD1, Group: [id number], ID# [id number], Process claim through [employer] Custom, for questions: . THIS IS NOT INSURANCE.] Kenalog 40 mg/mL suspension for injection RxNorm: 1415081 Milliliter(s) Inj 06/23/2014 06/23/2014 Inactive [SAVINGS FOR UNINSURED PATIENTS -- BIN:499330, PCN: ASPROD1, Group: [id number], ID# [id number], Process claim through MedImpact, for questions: . THIS IS NOT INSURANCE.] ceftriaxone 500 mg solution for injection RxNorm: 727238 Inj 06/23/2014 06/23/2014 Inactive [SAVINGS FOR UNINSURED PATIENTS -- BIN:974055, PCN: ASPROD1, Group: [id number], ID# [id number], Process claim through MedImpact, for questions: . THIS IS NOT INSURANCE.] Levaquin 500 mg tablet RxNorm: 029342 1 Tablet(s) PO daily 06/23/2014 07/13/2014 Inactive [SAVINGS FOR UNINSURED PATIENTS -- BIN:325937, PCN: ASPROD1, Group: [id number], ID# [id number], Process claim through MedImpact, for questions: . THIS IS NOT INSURANCE.] Duragesic 50 mcg/hr transdermal patch RxNorm: 100162 1 TD q72 hours 06/05/2014 08/06/2014 Inactive [SAVINGS FOR UNINSURED PATIENTS -- BIN:194341, PCN: ASPROD1, Group: [id number], ID# [id number], Process claim through MedImpact, for questions: . THIS IS NOT INSURANCE.] alprazolam 0.25 mg tablet RxNorm: 353352 1 Tablet(s) PO daily as needed TAKE ONE TABLET BY MOUTH EVERY DAY NEEDED 06/02/2014 07/29/2014 Inactive (Response to an electronic controlled substance refill request - RxReferenceNumber: [id number]) nystatin 100,000 unit/gram topical powder RxNorm: 109870 APPLY TO AFFECTED AREA(S) TWO TIMES A DAY 05/01/2014 06/14/2014 Inactive hydrochlorothiazide 25 mg tablet RxNorm: 101716 TAKE ONE TABLET BY MOUTH EVERY DAY MUST CALL MD FOR APPOINTMENT 04/24/2014 10/20/2014 Inactive alprazolam 0.25 mg tablet RxNorm: 766299 Tablet(s) TAKE ONE TABLET BY MOUTH EVERY DAY NEEDED 04/16/2014 06/02/2014 Inactive (Response to an electronic controlled substance refill request - RxReferenceNumber: [id number]) alprazolam 0.25 mg tablet RxNorm: 521323 TAKE ONE TABLET BY MOUTH EVERY DAY NEEDED 04/16/2014 05/15/2014 Inactive (Response to an electronic controlled substance refill request - RxReferenceNumber: [id number]) alprazolam 0.25 mg tablet RxNorm: 181821 TAKE ONE TABLET BY MOUTH EVERY DAY NEEDED 04/16/2014 05/15/2014 Inactive (Response to an electronic controlled substance refill request - RxReferenceNumber: [id number]) alprazolam 0.25 mg tablet RxNorm: 087910 TAKE ONE TABLET BY MOUTH EVERY DAY NEEDED 04/14/2014 04/16/2014 Inactive (Response to an electronic controlled substance refill request - RxReferenceNumber: [id number]) Lipitor 10 mg tablet RxNorm: 025115 TAKE ONE TABLET BY MOUTH EVERY DAY 04/14/2014 09/10/2014 Inactive alprazolam 0.25 mg tablet RxNorm: 380548 TAKE ONE TABLET BY MOUTH EVERY DAY NEEDED 04/14/2014 04/14/2014 Inactive (Response to an electronic controlled substance refill request - RxReferenceNumber: [id number]) alprazolam 0.25 mg tablet RxNorm: 427259 TAKE ONE TABLET BY MOUTH EVERY DAY NEEDED 04/14/2014 04/15/2014 Inactive (Response to an electronic controlled substance refill request - RxReferenceNumber: [id number]) alprazolam 0.25 mg tablet RxNorm: 638645 TAKE ONE TABLET BY MOUTH EVERY DAY NEEDED 04/14/2014 04/14/2014 Inactive (Response to an electronic controlled substance refill request - RxReferenceNumber: [id number]) nystatin 100,000 unit/gram topical powder RxNorm: 365418 1 Application TOP BID 04/03/2014 07/01/2014 Inactive [SAVINGS FOR UNINSURED PATIENTS -- BIN:698371, PCN: ASPROD1, Group: [id number], ID# [id number], Process claim through [employer] Custom, for questions: . THIS IS NOT INSURANCE.] Keflex 500 mg capsule RxNorm: 409086 1 Capsule(s) PO QID 04/03/2014 04/09/2014 Inactive [SAVINGS FOR UNINSURED PATIENTS -- BIN:592038, PCN: ASPROD1, Group: [id number], ID# [id number], Process claim through MedImpact, for questions: . THIS IS NOT INSURANCE.] Synthroid 100 mcg tablet RxNorm: 009382 1 Tablet(s) PO daily TAKE ONE TABLET BY MOUTH EVERY DAY 04/01/2014 01/05/2015 Inactive [SAVINGS FOR UNINSURED PATIENTS -- BIN:715720, PCN: ASPROD1, Group: [id number], ID# [id number], Process claim through MedImpact, for questions: . THIS IS NOT INSURANCE.] Duragesic 50 mcg/hr transdermal patch RxNorm: 461277 1 TD q72 hours 03/24/2014 06/04/2014 Inactive [SAVINGS FOR UNINSURED PATIENTS -- BIN:817377, PCN: ASPROD1, Group: [id number], ID# [id number], Process claim through MedImpact, for questions: . THIS IS NOT INSURANCE.] trazodone 50 mg tablet RxNorm: 728767 TAKE 1 AND 1/2 TABLET AT BEDTIME FOR 2 WEEKS, MAY INCREASE TO 2 TABLETS IF NECESSARY AFTER THAT 03/18/2014 09/13/2014 Inactive nystatin 100,000 unit/gram topical powder RxNorm: 738445 1 Application TOP BID 03/07/2014 03/16/2014 Inactive [SAVINGS FOR UNINSURED PATIENTS -- BIN:976568, PCN: ASPROD1, Group: [id number], ID# [id number], Process claim through MedImpact, for questions: . THIS IS NOT INSURANCE.] permethrin 5 % topical cream RxNorm: 769861 1 Application TOP daily 03/07/2014 11/23/2015 Inactive apply head to toe-leave on overnight and wash off in the a.m. May repeat x 1 if needed Diflucan 150 mg tablet RxNorm: 417867 1 Tablet(s) PO daily 03/07/2014 03/09/2014 Inactive [SAVINGS FOR UNINSURED PATIENTS -- BIN:503665, PCN: ASPROD1, Group: [id number], ID# [id number], Process claim through MedIKlypperact, for questions: . THIS IS NOT INSURANCE.] hydrochlorothiazide 25 mg tablet RxNorm: 689695 TAKE ONE TABLET BY MOUTH EVERY DAY MUST CALL MD FOR APPOINTMENT 03/06/2014 04/23/2014 Inactive Zithromax Z-Sergio 250 mg tablet RxNorm: 027615 Tablet(s) PO as directed 03/04/2014 11/23/2015 Inactive [SAVINGS FOR UNINSURED PATIENTS -- BIN:936490, PCN: ASPROD1, Group: [id number], ID# [id number], Process claim through MedImpact, for questions: . THIS IS NOT INSURANCE.] Flonase 50 mcg/actuation nasal spray,suspension RxNorm: 909011 1 [place] NASAL daily 03/04/2014 07/01/2014 Inactive [SAVINGS FOR UNINSURED PATIENTS -- BIN:268678, PCN: ASPROD1, Group: [id number], ID# [id number], Process claim through MedImpact, for questions: . THIS IS NOT INSURANCE.] alprazolam 0.25 mg tablet RxNorm: 222846 1 Tablet(s) PO PRN TAKE ONE TABLET BY MOUTH EVERY DAY NEEDED 02/25/2014 04/14/2014 Inactive (Appended: Controlled substance eRx refill - RxReferenceNumber: [id number]) alprazolam 0.25 mg tablet RxNorm: 150157 TAKE ONE TABLET BY MOUTH EVERY DAY NEEDED 02/21/2014 03/22/2014 Inactive (Response to an electronic controlled substance refill request - RxReferenceNumber: [id number]) alprazolam 0.25 mg tablet RxNorm: 131179 TAKE ONE TABLET BY MOUTH EVERY DAY NEEDED 02/21/2014 03/22/2014 Inactive (Response to an electronic controlled substance refill request - RxReferenceNumber: [id number]) alprazolam 0.25 mg tablet RxNorm: 970671 TAKE ONE TABLET BY MOUTH EVERY DAY NEEDED 02/18/2014 03/19/2014 Inactive (Response to an electronic controlled substance refill request - RxReferenceNumber: [id number]) Cymbalta 60 mg capsule,delayed release RxNorm: 788184 TAKE ONE CAPSULE BY MOUTH TWICE A DAY 02/18/2014 01/13/2015 Inactive Nexium 40 mg capsule,delayed release RxNorm: 175463 TAKE ONE CAPSULE BY MOUTH EVERY DAY 02/18/2014 01/13/2015 Inactive Bactrim DS 800 mg-160 mg tablet RxNorm: 548116 1 Tablet(s) PO BID 02/13/2014 02/19/2014 Inactive probiotic while one antibiotic Bactrim DS 800 mg-160 mg tablet RxNorm: 877147 1 Tablet(s) PO BID 02/13/2014 02/12/2014 Inactive hydrocodone 10 mg-acetaminophen 325 mg tablet RxNorm: 112116 Tablet(s) PO TAKE ONE TO TWO TABLETS BY MOUTH EVERY 6 HOURS NEEDED FOR PAIN 02/06/2014 03/18/2015 Inactive (Appended: Controlled substance eRx refill - RxReferenceNumber: [id number]) Abilify 2 mg tablet RxNorm: 890470 Tablet(s) PO TAKE ONE TABLET BY MOUTH EVERY NIGHT AT BEDTIME 02/03/2014 03/19/2015 Inactive Duragesic 50 mcg/hr transdermal patch RxNorm: 197708 1 TD q72 hours 01/14/2014 03/23/2014 Inactive alprazolam 0.25 mg tablet RxNorm: 202144 1 Tablet(s) PO QDAY PRN 01/14/2014 02/12/2014 Inactive alprazolam 0.25 mg tablet RxNorm: 526079 Tablet(s) PO TAKE ONE TABLET BY MOUTH EVERY DAY NEEDED 01/14/2014 02/24/2014 Inactive (Appended: Controlled substance eRx refill - RxReferenceNumber: [id number]) Lipitor 10 mg tablet RxNorm: 259399 Tablet(s) PO TAKE ONE TABLET BY MOUTH EVERY DAY 01/14/2014 04/13/2014 Inactive Synthroid 100 mcg tablet RxNorm: 740411 Tablet(s) PO TAKE ONE TABLET BY MOUTH EVERY DAY 2013 03/31/2014 Inactive Fioricet 50 mg-325 mg-40 mg tablet RxNorm: 854656 Tablet(s) PO TAKE ONE TABLET BY MOUTH EVERY 4 HOURS NEEDED FOR PAIN 11/27/2013 09/17/2014 Inactive Fioricet 50 mg-325 mg-40 mg tablet RxNorm: 475472 Tablet(s) PO TAKE ONE TABLET BY MOUTH EVERY 4 HOURS NEEDED FOR PAIN 11/25/2013 11/26/2013 Inactive Zithromax Z-Sergio 250 mg tablet RxNorm: 739486 Tablet(s) PO as directed 11/11/2013 01/13/2014 Inactive Bystolic 10 mg tablet RxNorm: 667191 Tablet(s) PO TAKE ONE TABLET BY MOUTH EVERY DAY 10/21/2013 09/28/2014 Inactive Abilify 2 mg tablet RxNorm: 992194 1 Tablet(s) PO QHS 09/25/2013 01/22/2014 Inactive Synthroid 100 mcg tablet RxNorm: 302222 Tablet(s) PO TAKE ONE TABLET BY MOUTH EVERY DAY 09/24/2013 12/25/2013 Inactive Abilify 2 mg tablet RxNorm: 733901 1 Tablet(s) PO QHS 09/24/2013 09/24/2013 Inactive Rocephin 500 mg solution for injection RxNorm: 633854 1ml Milliliter(s) Inj 09/24/2013 09/24/2013 Inactive Rocephin 500 mg solution for injection RxNorm: 652916 1 Milliliter(s) Inj 09/19/2013 09/19/2013 Inactive Bystolic 5 mg tablet RxNorm: 038626 1 1/2 Tablet(s) PO daily 09/17/2013 03/15/2014 Inactive 1 1/2 daily may have 90 day if cheaper Bystolic 5 mg tablet RxNorm: 682408 1 1/2 Tablet(s) PO daily 09/17/2013 09/16/2013 Inactive 1 1/2 daily Lipitor 10 mg tablet RxNorm: 094818 Tablet(s) PO TAKE ONE TABLET BY MOUTH EVERY DAY 09/12/2013 01/13/2014 Inactive hydrocodone 10 mg-acetaminophen 325 mg tablet RxNorm: 877284 Tablet(s) PO TAKE ONE TO TWO TABLETS BY MOUTH EVERY 6 HOURS NEEDED FOR PAIN 09/09/2013 10/29/2017 Inactive (Appended: Controlled substance eRx refill - RxReferenceNumber: [id number]) hydrocodone 10 mg-acetaminophen 325 mg tablet RxNorm: 858523 1 Tablet(s) PO Q6 PRN 09/09/2013 02/06/2014 Inactive hydrocodone 10 mg-acetaminophen 325 mg tablet RxNorm: 291984 Tablet(s) PO TAKE ONE TO TWO TABLETS BY MOUTH EVERY 6 HOURS NEEDED FOR PAIN 09/06/2013 10/29/2017 Inactive (Appended: Controlled substance eRx refill - RxReferenceNumber: [id number]) Norvasc 10 mg tablet RxNorm: 153306 Tablet(s) PO TAKE ONE TABLET BY MOUTH EVERY DAY 09/05/2013 10/25/2015 Inactive trazodone 50 mg tablet RxNorm: 838029 1 1/2 Tablet(s) PO QHS 09/03/2013 03/17/2014 Inactive 75q hs x 2 week may increase to 100mg if nec after that nystatin 100,000 unit/mL oral suspension RxNorm: 396530 6 Milliliter(s) PO QID 08/06/2013 08/15/2013 Inactive Flonase 50 mcg/actuation nasal spray,suspension RxNorm: 635748 2 [place] NASAL daily 08/06/2013 03/03/2014 Inactive nystatin 100,000 unit/mL oral suspension RxNorm: 616236 6 Unit(s) PO QID 08/05/2013 08/05/2013 Inactive Phenergan with Codeine Syrup RxNorm: 5 Milliliter(s) PO Q4 PRN 08/05/2013 12/02/2013 Inactive 8 ounces alprazolam 0.25 mg tablet RxNorm: 562451 1 Tablet(s) PO QDAY PRN 07/29/2013 01/14/2014 Inactive Diflucan 150 mg tablet RxNorm: 958979 1 Tablet(s) PO daily 07/24/2013 07/26/2013 Inactive hydrochlorothiazide 25 mg tablet RxNorm: 897680 Tablet(s) PO TAKE ONE TABLET BY MOUTH EVERY DAY MUST CALL FOR APPOINTMENT 07/19/2013 03/05/2014 Inactive Phenergan with Codeine Syrup RxNorm: 10 Milliliter(s) PO Q4 PRN 07/10/2013 08/04/2013 Inactive 8 ounces Rocephin 500 mg solution for injection RxNorm: 3631391 1 Inj 07/10/2013 07/10/2013 Inactive cefdinir 300 mg capsule RxNorm: 369476 1 Capsule(s) PO BID 07/10/2013 07/16/2013 Inactive prednisone 10 mg tablet RxNorm: 029690 3 Tablet(s) PO daily 07/10/2013 07/14/2013 Inactive Carafate 100 mg/mL oral suspension RxNorm: 822521 10 Milliliter(s) PO Q6 PRN pt to take carafate 10mL every 6 hours as needed. 07/10/2013 08/05/2014 Inactive Kenalog 40 mg/mL suspension for injection RxNorm: 6905739 1 Milliliter(s) Inj 07/10/2013 07/10/2013 Inactive trazodone 50 mg tablet RxNorm: 605059 1 Tablet(s) PO QHS 07/10/2013 09/02/2013 Inactive sulfamethoxazole 800 mg-trimethoprim 160 mg tablet RxNorm: 309956 1 Tablet(s) PO BID 06/03/2013 06/12/2013 Inactive Synthroid 125 mcg tablet RxNorm: 740398 1 Tablet(s) PO daily 05/07/2013 09/23/2013 Inactive Bystolic 10 mg tablet RxNorm: 106273 1.5 Tablet(s) PO daily 05/07/2013 09/03/2013 Inactive Voltaren 1 % Topical Gel RxNorm: 907322 4 Gram(s) TOP QID apply 4 grams to knees, 2 grams to hands and ankles four times daily. 05/07/2013 09/03/2013 Inactive hydrocodone 10 mg-acetaminophen 325 mg tablet RxNorm: 101073 1 Tablet(s) PO Q6 PRN 04/23/2013 09/09/2013 Inactive Norvasc 10 mg tablet RxNorm: 034734 Tablet(s) PO TAKE ONE TABLET BY MOUTH EVERY DAY 04/23/2013 09/04/2013 Inactive alprazolam 0.25 mg tablet RxNorm: 086262 1 Tablet(s) PO QDAY PRN 03/25/2013 07/22/2013 Inactive Bystolic 10 mg tablet RxNorm: 141246 1 Tablet(s) PO daily TAKE ONE TABLET BY MOUTH EVERY DAY 03/25/2013 05/06/2013 Inactive zolpidem 10 mg tablet RxNorm: 542793 1 Tablet(s) PO HS PRN 03/25/2013 07/09/2013 Inactive gentamicin 0.3 % Eye Drops RxNorm: 571970 3 Drop(s) OPH QID three gtts to each eye QID x 7 days 03/11/2013 03/10/2013 Inactive gentamicin 0.3 % eye drops RxNorm: 938769 3 Drop(s) OPH QID three gtts to each eye QID x 7 days 03/11/2013 03/17/2013 Inactive Nexium 40 mg capsule,delayed release RxNorm: 984824 Capsule(s) PO TAKE ONE CAPSULE BY MOUTH EVERY DAY 02/15/2013 02/17/2014 Inactive Cymbalta 60 mg capsule,delayed release RxNorm: 026794 Capsule(s) PO TAKE ONE CAPSULE BY MOUTH TWICE A DAY 02/15/2013 02/17/2014 Inactive hydrocodone 10 mg-acetaminophen 325 mg tablet RxNorm: 3012299 1 Tablet(s) PO Q6 PRN 01/22/2013 04/22/2013 Inactive Lipitor 10 mg tablet RxNorm: 495863 Tablet(s) PO TAKE ONE TABLET BY MOUTH EVERY DAY 01/07/2013 09/11/2013 Inactive Cymbalta 60 mg capsule,delayed release RxNorm: 773585 Capsule(s) PO TAKE ONE CAPSULE BY MOUTH TWICE A DAY 01/02/2013 02/14/2013 Inactive Synthroid 100 mcg tablet RxNorm: 358073 1 Tablet(s) PO 12/03/2012 05/06/2013 Inactive Enablex 7.5 mg tablet,extended release RxNorm: 652444 1 Tablet(s) PO daily 11/28/2012 11/27/2012 Inactive Enablex 7.5 mg tablet,extended release RxNorm: 492542 1 Tablet(s) PO daily 11/28/2012 11/28/2012 Inactive scopolamine 1.5 mg 72 hr Transderm Patch RxNorm: 461561 1 Milligram(s) TD q72 hours 11/26/2012 05/06/2013 Inactive hydrochlorothiazide 25 mg tablet RxNorm: 551522 Tablet(s) PO TAKE ONE TABLET BY MOUTH EVERY DAY MUST CALL MD FOR APPOINTMENT 11/24/2012 07/18/2013 Inactive Cymbalta 60 mg capsule,delayed release RxNorm: 574485 Capsule(s) PO TAKE ONE CAPSULE BY MOUTH TWICE A DAY 10/26/2012 01/01/2013 Inactive Bystolic 10 mg tablet RxNorm: 466794 Tablet(s) PO TAKE ONE TABLET BY MOUTH EVERY DAY 10/12/2012 03/25/2013 Inactive zolpidem 10 mg tablet RxNorm: 093662 1 Tablet(s) PO HS PRN 10/02/2012 01/29/2013 Inactive alprazolam 0.25 mg tablet RxNorm: 983860 1 Tablet(s) PO QDAY PRN 10/02/2012 01/29/2013 Inactive Kenalog 40 mg/mL Susp for Injection RxNorm: 8234609 1 Milliliter(s) Inj 09/24/2012 09/24/2012 Inactive Diflucan 150 mg tablet RxNorm: 045370 1 Tablet(s) PO daily 09/24/2012 09/30/2012 Inactive acyclovir 400 mg tablet RxNorm: 814961 1 Tablet(s) PO QID 09/24/2012 10/08/2012 Inactive Cipro 500 mg tablet RxNorm: 712332 1 Tablet(s) PO BID 09/24/2012 09/30/2012 Inactive Tamiflu 75 mg capsule RxNorm: 168412 1 Capsule(s) PO BID 09/17/2012 09/16/2012 Inactive Tamiflu 75 mg capsule RxNorm: 238891 1 Capsule(s) PO BID 09/17/2012 09/16/2012 Inactive Tamiflu 75 mg capsule RxNorm: 972324 1 Capsule(s) PO BID please disregard order for #14 09/17/2012 09/21/2012 Inactive fluconazole 150 mg tablet RxNorm: 417225 1 Tablet(s) PO daily 09/10/2012 09/13/2012 Inactive ketoconazole 2 % Topical Cream RxNorm: 595610 Application TOP BID apply to affected area BID until gone 08/31/2012 11/01/2017 Inactive Norvasc 10 mg tablet RxNorm: 829280 Tablet(s) PO TAKE ONE TABLET BY MOUTH EVERY DAY 08/29/2012 04/22/2013 Inactive Cipro 500 mg tablet RxNorm: 709745 1 Tablet(s) PO BID 08/17/2012 08/26/2012 Inactive Flagyl 500 mg tablet RxNorm: 595014 1 Tablet(s) PO TID 08/17/2012 08/23/2012 Inactive Cipro 500 mg tablet RxNorm: 611748 1 Tablet(s) PO BID 08/17/2012 08/16/2012 Inactive zolpidem 10 mg tablet RxNorm: 858637 1 Tablet(s) PO HS PRN 08/17/2012 09/15/2012 Inactive Flagyl 500 mg tablet RxNorm: 211732 1 Tablet(s) PO TID 08/17/2012 08/16/2012 Inactive alprazolam 0.25 mg tablet RxNorm: 719365 1 Tablet(s) PO QDAY PRN 08/17/2012 09/15/2012 Inactive [place] Allergy 180 mg tablet RxNorm: 866030 1 Tablet(s) PO daily 08/08/2012 02/03/2013 Inactive hydrochlorothiazide 25 mg tablet RxNorm: 890280 1/2 Tablet(s) PO daily 08/08/2012 11/05/2012 Inactive needs appt Carafate 1 gram tablet RxNorm: 566873 1 Tablet(s) PO QID mix with 10 cc water and dissolve into slurry 08/08/2012 08/21/2012 Inactive hydrocodone 10 mg-acetaminophen 325 mg tablet RxNorm: 1231904 1 Tablet(s) PO Q6 PRN 08/08/2012 01/21/2013 Inactive Synthroid 100 mcg tablet RxNorm: 671532 1 Tablet(s) PO 08/08/2012 12/02/2012 Inactive Cymbalta 60 mg capsule,delayed release RxNorm: 065975 Capsule(s) PO 07/23/2012 10/25/2012 Inactive TAKE ONE CAPSULE BY MOUTH TWICE A DAY Nexium 40 mg capsule,delayed release RxNorm: 105995 Capsule(s) PO 06/20/2012 02/14/2013 Inactive TAKE ONE CAPSULE BY MOUTH EVERY DAY Lipitor 10 mg tablet RxNorm: 086679 Tablet(s) PO 06/20/2012 01/06/2013 Inactive TAKE ONE TABLET BY MOUTH EVERY DAY hydrochlorothiazide 25 mg tablet RxNorm: 263819 1 Tablet(s) PO daily 06/19/2012 08/07/2012 Inactive needs appt alprazolam 0.25 mg tablet RxNorm: 909952 1 Tablet(s) PO QDAY PRN 06/05/2012 07/04/2012 Inactive zolpidem 10 mg tablet RxNorm: 581564 1 Tablet(s) PO HS PRN 06/05/2012 07/04/2012 Inactive zolpidem 10 mg tablet RxNorm: 930258 1 Tablet(s) PO HS PRN 04/16/2012 05/15/2012 Inactive alprazolam 0.25 mg tablet RxNorm: 319134 1 Tablet(s) PO QDAY PRN 04/16/2012 05/15/2012 Inactive Cymbalta 60 mg capsule,delayed release RxNorm: 328437 1 Capsule(s) PO BID 03/22/2012 07/19/2012 Inactive Fioricet 50 mg-325 mg-40 mg tablet RxNorm: 238928 1 Tablet(s) PO Q4 PRN 03/22/2012 11/24/2013 Inactive Bystolic 10 mg tablet RxNorm: 451795 Tablet(s) PO 03/22/2012 10/11/2012 Inactive TAKE ONE TABLET BY MOUTH EVERY DAY potassium chloride ER 10 mEq Tab RxNorm: 947170 1 Tablet(s) PO daily 02/24/2012 03/01/2012 Inactive Lasix 20 mg Tab RxNorm: 503991 1 Tablet(s) PO daily 02/22/2012 02/21/2012 Inactive KCL 10 meq RxNorm: 1 PO daily 02/22/2012 02/21/2012 Inactive potassium chloride ER 10 mEq Tab RxNorm: 239310 1 Tablet(s) PO daily 02/22/2012 02/21/2012 Inactive Lasix 20 mg Tab RxNorm: 224702 1 Tablet(s) PO daily 02/22/2012 02/28/2012 Inactive KCL 10 meq RxNorm: 1 PO daily 02/22/2012 02/22/2012 Inactive potassium chloride ER 10 mEq Tab RxNorm: 509804 1 Tablet(s) PO daily 02/22/2012 02/23/2012 Inactive Rocephin 500 mg Solution for Injection RxNorm: 3571547 Inj 02/15/2012 02/15/2012 Inactive Nexium 40 mg capsule,delayed release RxNorm: 682280 1 Capsule(s) PO daily 02/15/2012 No Stop Date Active Bystolic 10 mg Tab RxNorm: 292200 1 Tablet(s) PO daily 02/15/2012 08/12/2012 Inactive alprazolam 0.25 mg tablet RxNorm: 788973 1 Tablet(s) PO QDAY PRN 01/31/2012 02/29/2012 Inactive zolpidem 10 mg tablet RxNorm: 679522 1 Tablet(s) PO HS PRN 01/31/2012 02/29/2012 Inactive alprazolam 0.25 mg Tab RxNorm: 878403 1 Tablet(s) PO QDAY PRN 12/16/2011 01/14/2012 Inactive zolpidem 10 mg Tab RxNorm: 077155 1 Tablet(s) PO HS PRN 12/16/2011 01/14/2012 Inactive Norvasc 10 mg tablet RxNorm: 557069 1 Tablet(s) PO daily 12/02/2011 02/21/2012 Inactive Lipitor 10 mg tablet RxNorm: 275882 1 Tablet(s) PO daily 11/16/2011 05/13/2012 Inactive zolpidem 10 mg Tab RxNorm: 415280 1 Tablet(s) PO HS PRN 10/26/2011 12/15/2011 Inactive alprazolam 0.25 mg Tab RxNorm: 398552 1 Tablet(s) PO QDAY PRN 10/26/2011 12/15/2011 Inactive hydrochlorothiazide 25 mg tablet RxNorm: 214163 1 Tablet(s) PO daily 09/05/2011 03/02/2012 Inactive Synthroid 75 mcg tablet RxNorm: 528297 1 Tablet(s) PO daily 08/01/2011 02/26/2012 Inactive Abilify 2 mg Tab RxNorm: 630833 1 Tablet(s) PO QHS 08/01/2011 09/10/2012 Inactive dicyclomine 10 mg Cap RxNorm: 733911 1 Capsule(s) PO TID 08/01/2011 10/29/2011 Inactive alprazolam 0.25 mg Tab RxNorm: 619107 1 Tablet(s) PO QDAY PRN 07/26/2011 10/25/2011 Inactive Fioricet 50 mg-325 mg-40 mg tablet RxNorm: 259287 1 Tablet(s) PO Q4 PRN 07/14/2011 03/21/2012 Inactive Rocephin 500 mg Solution for Injection RxNorm: 6534465 1 Milliliter(s) Inj 07/14/2011 08/01/2011 Inactive Nexium 40 mg Capsule, delayed release RxNorm: 837095 1 Capsule(s) PO daily 05/23/2011 10/06/2011 Inactive Bystolic 10 mg tablet RxNorm: 740330 1 Tablet(s) PO daily 05/23/2011 11/18/2011 Inactive Bystolic 10 mg Tab RxNorm: 965024 1 Tablet(s) PO daily 05/23/2011 05/22/2011 Inactive alprazolam 0.25 mg Tab RxNorm: 858136 1 Tablet(s) PO QDAY PRN 05/23/2011 07/25/2011 Inactive Influenza Virus Vaccine 0.5 mL RxNorm: IM 05/23/2011 05/23/2011 Inactive zolpidem 10 mg Tab RxNorm: 071476 1 Tablet(s) PO HS PRN 05/23/2011 10/25/2011 Inactive Rocephin 500 mg Solution for Injection RxNorm: 4110473 1 Milliliter(s) Inj 05/03/2011 07/14/2011 Inactive Kenalog 40 mg/mL Susp for Injection RxNorm: 6824833 1 Milliliter(s) Inj 05/03/2011 07/14/2011 Inactive Bactrim DS 800 mg-160 mg Tab RxNorm: 206802 1 Tablet(s) PO BID 05/03/2011 08/01/2011 Inactive Bystolic 10 mg tablet RxNorm: 006791 1 Tablet(s) PO daily No Start Date Active Flonase 50 mcg/actuation nasal spray,suspension RxNorm: 8949539 2 [place] NASAL daily No Start Date 08/05/2013 Inactive Levaquin 500 mg tablet RxNorm: 724966 Tablet(s) PO No Start Date 04/19/2017 Inactive Duragesic 50 mcg/hr transdermal patch RxNorm: 535071 1 TD q72 hours No Start Date 01/13/2014 Inactive Vesicare 5 mg tablet RxNorm: 886403 1 Tablet(s) PO daily No Start Date 01/06/2015 Inactive Celebrex 200 mg capsule RxNorm: 620746 1 Capsule(s) PO daily No Start Date 04/02/2014 Inactive zolpidem 10 mg Tab RxNorm: 183357 1 Tablet(s) PO HS PRN No Start Date 05/22/2011 Inactive Zyrtec 10 mg Tab RxNorm: 7016757 1 Tablet(s) PO daily No Start Date 08/08/2012 Inactive Flonase 50 mcg/actuation nasal spray,suspension RxNorm: 0184736 1 [place] NASAL daily No Start Date 11/07/2017 Inactive 1 spray to each nostril daily Nexium 40 mg Cap RxNorm: 832955 1 Capsule(s) PO daily No Start Date 05/22/2011 Inactive ketoconazole 2 % Topical Cream RxNorm: 102147 Application TOP BID apply to affected area BID until gone No Start Date 08/30/2012 Inactive aspirin 81 mg tablet RxNorm: 589707 1 Tablet(s) PO daily No Start Date 11/13/2017 Inactive Cymbalta 60 mg capsule,delayed release RxNorm: 264456 1 Capsule(s) PO BID No Start Date 03/21/2012 Inactive alprazolam 0.25 mg Tab RxNorm: 133679 1 Tablet(s) PO QDAY PRN No Start Date 05/22/2011 Inactive baclofen 10 mg tablet RxNorm: 333165 1 Tablet(s) PO TID as needed muscle spasms No Start Date 11/14/2017 Inactive Toprol XL 100 mg 24 hr Tab RxNorm: 923944 1 Tablet(s) PO BID No Start Date 04/25/2011 Inactive Xanax 0.25 mg tablet RxNorm: 423950 1 Tablet(s) PO daily as needed No Start Date 12/27/2015 Inactive Bystolic 10 mg Tab RxNorm: 740842 1 Tablet(s) PO daily No Start Date 05/22/2011 Inactive Fioricet 50 mg-325 mg-40 mg Tab RxNorm: 160730 1 Tablet(s) PO Q4 PRN No Start Date 07/13/2011 Inactive albuterol sulfate HFA 90 mcg/Actuation Aerosol Inhaler RxNorm: 7783872 1 INH Q4 PRN No Start Date 01/06/2015 Inactive Imitrex 50 mg tablet RxNorm: 067125 1 Tablet(s) PO Q8 as needed may repeat x1 dose in 1 hour of inital dose. No Start Date 02/24/2016 Inactive dc fioricet Tessalon 200 mg Cap RxNorm: 580627 1 Capsule(s) PO Q4 PRN No Start Date 02/14/2012 Inactive Zithromax Z-Sergio 250 mg tablet RxNorm: 123492 Tablet(s) PO No Start Date 11/10/2013 Inactive hydrochlorothiazide 25 mg Tab RxNorm: 201318 1 Tablet(s) PO daily No Start Date 09/04/2011 Inactive Fish Oil 1,000 mg Cap RxNorm: 1 Capsule(s) PO TID No Start Date 11/08/2017 Inactive Deplin 15 mg Tab RxNorm: 1 Tablet(s) PO daily No Start Date 08/01/2011 Inactive Brilinta 90 mg tablet RxNorm: 4641124 1 Tablet(s) PO BID No Start Date 11/23/2015 Inactive Synthroid 75 mcg Tab RxNorm: 116613 1 Tablet(s) PO daily No Start Date 07/31/2011 Inactive ciprofloxacin 0.3 % eye drops RxNorm: 694048 2 Drop(s) ophthalmic (eye) Q2H while awake x 2 days, then Q4H x 5 days No Start Date 11/22/2017 Inactive scopolamine 1.5 mg 72 hr Transderm Patch RxNorm: 244609 1 Milligram(s) TD q72 hours No Start Date 11/25/2012 Inactive hydrocodone-acetaminophen 10 mg-325 mg tablet RxNorm: 1981108 1 Tablet(s) PO Q6 PRN No Start Date 08/07/2012 Inactive Phenergan with Codeine Syrup RxNorm: 5-10 Milliliter(s) PO Q6 PRN No Start Date 02/14/2012 Inactive Norvasc 10 mg Tab RxNorm: 228691 1 Tablet(s) PO daily No Start Date 12/01/2011 Inactive Zithromax Z-Sergio 250 mg Tab RxNorm: 043097 Tablet(s) PO No Start Date 08/01/2011 Inactive Medication Administered Medication Codes Instructions Start Date Status ceftriaxone 500 mg solution for injection RxNorm: 1665132 05/28/2018 No longer Active Kenalog 40 mg/mL suspension for injection RxNorm: 8753220 Milliliter 05/28/2018 No longer Active ceftriaxone 500 mg solution for injection RxNorm: 3212859 500Milligram 01/19/2018 No longer Active Kenalog 40 mg/mL suspension for injection RxNorm: 5145631 1Milliliter 01/19/2018 No longer Active Kenalog 40 mg/mL suspension for injection RxNorm: 4942661 1Milliliter 06/27/2017 No longer Active Kenalog 40 mg/mL suspension for injection RxNorm: 4875767 Milliliter 04/20/2017 No longer Active Kenalog 40 mg/mL suspension for injection RxNorm: 9033735 1Milliliter 03/14/2017 No longer Active ceftriaxone 500 mg solution for injection RxNorm: 2922386 1Milliliter 11/28/2016 No longer Active Kenalog 40 mg/mL suspension for injection RxNorm: 6861001 Milliliter 11/07/2016 No longer Active ceftriaxone 500 mg solution for injection RxNorm: 3838819 11/07/2016 No longer Active ceftriaxone 500 mg solution for injection RxNorm: 5777287 12/07/2015 No longer Active Kenalog 40 mg/mL suspension for injection RxNorm: 2215987 1[place]il[place] 11/24/2015 No longer Active ceftriaxone 500 mg solution for injection RxNorm: 5563386 Milliliter 11/24/2015 No longer Active promethazine 25 mg/mL injection solution RxNorm: 347640 Milliliter 08/27/2015 No longer Active ketorolac 60 mg/2 mL intramuscular solution RxNorm: 756276 Milliliter 08/27/2015 No longer Active Kenalog 40 mg/mL suspension for injection RxNorm: 3864076 Milliliter 08/10/2015 No longer Active ceftriaxone 500 mg solution for injection RxNorm: 1859720 08/10/2015 No longer Active ceftriaxone 500 mg solution for injection RxNorm: 3997497 1[place] 07/28/2015 No longer Active Kenalog 40 mg/mL suspension for injection RxNorm: 1717218 Milliliter 03/19/2015 No longer Active Kenalog 40 mg/mL suspension for injection RxNorm: 0171315 Milliliter 06/23/2014 No longer Active ceftriaxone 500 mg solution for injection RxNorm: 210537 06/23/2014 No longer Active Rocephin 500 mg solution for injection RxNorm: 030228 1mlMilliliter 09/24/2013 No longer Active Rocephin 500 mg solution for injection RxNorm: 943604 1Milliliter 09/19/2013 No longer Active Rocephin 500 mg solution for injection RxNorm: 0263108 1 07/10/2013 No longer Active Kenalog 40 mg/mL suspension for injection RxNorm: 7190151 1Milliliter 07/10/2013 No longer Active Kenalog 40 mg/mL Susp for Injection RxNorm: 6975477 1[place]iliter 09/24/2012 No longer Active Rocephin 500 mg Solution for Injection RxNorm: 1472552 02/15/2012 No longer Active Influenza Virus Vaccine [...] Observation Code Item Item Code Result Date Lipid Ord30 CHOL 193 mg/dL 01/01/2019 Lipid Ord30 HDL 45.0 mg/dl 01/01/2019 Lipid Ord30 TRIG 111 mg/dL 01/01/2019 Lipid Ord30 LDL 126 mg/dL 01/01/2019 Lipid Ord30 C/HDL 4.3 Ratio 01/01/2019 Comp Metabolic Dlr816 NA 140 mEq/L 01/01/2019 Comp Metabolic Ovc703 K 3.8 mEq/L 01/01/2019 Comp Metabolic Wlv472 CL 103 mEq/L 01/01/2019 Comp Metabolic Qhl686 CO2 28.0 mEq/L 01/01/2019 Comp Metabolic Wrb597 ANION GAP 13 01/01/2019 Comp Metabolic Fbk791 GLUCOSE 93 mg/dL 01/01/2019 Comp Metabolic Fde259 Creat 0.7 mg/dL 01/01/2019 Comp Metabolic Bdh084 eGFR 86 ml/min/1.73m2 01/01/2019 Comp Metabolic Niy799 BUN 21 mg/dL 01/01/2019 Comp Metabolic Jrw919 B/C Ratio 29.6 Ratio 01/01/2019 Comp Metabolic Zgg825 CALCIUM 9.4 mg/dL 01/01/2019 Comp Metabolic Una890 ALK PHOS 67 U/L 01/01/2019 Comp Metabolic Szj842 AST(SGOT) 27 U/L 01/01/2019 Comp Metabolic Hqu271 ALT(SGPT) 30 U/L 01/01/2019 Comp Metabolic Vdr829 BILI T 0.5 mg/dL 01/01/2019 Comp Metabolic Hsc530 ALBUMIN 4.0 g/dL 01/01/2019 Comp Metabolic Fur215 TPRO 6.8 g/dL 01/01/2019 Comp Metabolic Jgt736 GLOB 2.8 g/dL 01/01/2019 Comp Metabolic Ukb156 A/G Ratio 1.4 Ratio 01/01/2019 Comp Metabolic Kvi989 Osmo 282 mOsmo 01/01/2019 Free T4 Tjz102 FREE T4 0.71 ng/dL 10/31/2018 Tsh Ord6 TSH (3rd IS) 7.87 uIU/mL 10/31/2018 Lipid Ord30 CHOL 170 mg/dL 10/31/2018 Lipid Ord30 HDL 53.0 mg/dl 10/31/2018 Lipid Ord30 TRIG 85 mg/dL 10/31/2018 Lipid Ord30 LDL 100 mg/dL 10/31/2018 Lipid Ord30 C/HDL 3.2 Ratio 10/31/2018 Comp Metabolic Sgx694 NA 142 mEq/L 10/31/2018 Comp Metabolic Uoj486 K 4.0 mEq/L 10/31/2018 Comp Metabolic Hjs738 CL 106 mEq/L 10/31/2018 Comp Metabolic Uze807 CO2 27.0 mEq/L 10/31/2018 Comp Metabolic Xnq194 ANION GAP 13 10/31/2018 Comp Metabolic Pha106 GLUCOSE 114 mg/dL 10/31/2018 Comp Metabolic Jvs319 Creat 0.7 mg/dL 10/31/2018 Comp Metabolic Yjj627 eGFR 90 ml/min/1.73m2 10/31/2018 Comp Metabolic Uqt195 BUN 21 mg/dL 10/31/2018 Comp Metabolic Xqx036 B/C Ratio 30.9 Ratio 10/31/2018 Comp Metabolic Nkz699 CALCIUM 9.7 mg/dL 10/31/2018 Comp Metabolic Eql887 ALK PHOS 63 U/L 10/31/2018 Comp Metabolic Gxv984 AST(SGOT) 24 U/L 10/31/2018 Comp Metabolic Krw031 ALT(SGPT) 21 U/L 10/31/2018 Comp Metabolic Llw875 BILI T 0.6 mg/dL 10/31/2018 Comp Metabolic Vvj204 ALBUMIN 4.1 g/dL 10/31/2018 Comp Metabolic Slj145 TPRO 6.6 g/dL 10/31/2018 Comp Metabolic Fbf033 GLOB 2.5 g/dL 10/31/2018 Comp Metabolic Gfi798 A/G Ratio 1.7 Ratio 10/31/2018 Comp Metabolic Pzm570 Osmo 287 mOsmo 10/31/2018 Cbc With Differential [...] 30.9 pg 10/31/2018 Cbc With Differential Ord2 Latimer% 8.0 % 10/31/2018 Cbc With Differential Ord2 [...] 1.88 K/ul 10/31/2018 Cbc With Differential Ord2 Latimer ABS# 0.6 K/ul 10/31/2018 Cbc With Differential Ord2 Eos ABS# 0.5 K/ul 10/31/2018 Cbc With Differential Ord2 Baso ABS# 0.1 K/ul 10/31/2018 Comp Metabolic Inw220 NA 141 mEq/L 09/12/2017 Comp Metabolic Doy212 K 4.1 mEq/L 09/12/2017 Comp Metabolic Qin264 CL 105 mEq/L 09/12/2017 Comp Metabolic Fsb844 CO2 30.0 mEq/L 09/12/2017 Comp Metabolic Mes799 ANION GAP 10 09/12/2017 Comp Metabolic Lfl119 GLUCOSE 97 mg/dL 09/12/2017 Comp Metabolic Zmm097 Creat 0.7 mg/dL 09/12/2017 Comp Metabolic Aqp811 eGFR 91 ml/min/1.73m2 09/12/2017 Comp Metabolic Epm522 BUN 18 mg/dL 09/12/2017 Comp Metabolic Alg846 B/C Ratio 26.5 Ratio 09/12/2017 Comp Metabolic Okt742 CALCIUM 9.7 mg/dL 09/12/2017 Comp Metabolic Ekb694 ALK PHOS 60 U/L 09/12/2017 Comp Metabolic Inj945 AST(SGOT) 22 U/L 09/12/2017 Comp Metabolic Otc869 ALT(SGPT) 23 U/L 09/12/2017 Comp Metabolic Pqb214 BILI T 0.4 mg/dL 09/12/2017 Comp Metabolic Qyc089 ALBUMIN 3.8 g/dL 09/12/2017 Comp Metabolic Vly165 TPRO 6.4 g/dL 09/12/2017 Comp Metabolic Ovv296 GLOB 2.6 g/dL 09/12/2017 Comp Metabolic Yfw915 A/G Ratio 1.5 Ratio 09/12/2017 Comp Metabolic Vbv096 Osmo 283 mOsmo 09/12/2017 Cbc With Differential [...] 30.7 pg 09/12/2017 Cbc With Differential Ord2 Latimer% 7.2 % 09/12/2017 Cbc With Differential Ord2 [...] 2.46 K/ul 09/12/2017 Cbc With Differential Ord2 Latimer ABS# 0.6 K/ul 09/12/2017 Cbc With Differential [...] 31.4 pg 11/07/2016 Cbc With Differential Ord2 Latimer% 6.1 % 11/07/2016 Cbc With Differential Ord2 [...] 2.48 K/ul 11/07/2016 Cbc With Differential Ord2 Latimer ABS# 0.6 K/ul 11/07/2016 Cbc With Differential Ord2 Eos ABS# 0.3 K/ul 11/07/2016 Cbc With Differential Ord2 Baso ABS# 0.1 K/ul 11/07/2016 Comp Metabolic Xve710 NA 139 mEq/L 11/07/2016 Comp Metabolic Tsr535 K 3.8 mEq/L 11/07/2016 Comp Metabolic Jik746 CL 106 mEq/L 11/07/2016 Comp Metabolic Ull354 CO2 25.0 mEq/L 11/07/2016 Comp Metabolic Cdy089 ANION GAP 12 11/07/2016 Comp Metabolic Esz075 GLUCOSE 98 mg/dL 11/07/2016 Comp Metabolic Vyy753 Creat 0.8 mg/dL 11/07/2016 Comp Metabolic Zvf282 eGFR 71 ml/min/1.73m2 11/07/2016 Comp Metabolic Etf286 BUN 36 mg/dL 11/07/2016 Comp Metabolic Tch838 B/C Ratio 42.9 Ratio 11/07/2016 Comp Metabolic Zcq468 CALCIUM 9.9 mg/dL 11/07/2016 Comp Metabolic Qrw141 ALK PHOS 57 U/L 11/07/2016 Comp Metabolic Weg046 AST(SGOT) 24 U/L 11/07/2016 Comp Metabolic Iqa139 ALT(SGPT) 28 U/L 11/07/2016 Comp Metabolic Tka661 BILI T 0.4 mg/dL 11/07/2016 Comp Metabolic Itg042 ALBUMIN 4.2 g/dL 11/07/2016 Comp Metabolic Sgv568 TPRO 7.0 g/dL 11/07/2016 Comp Metabolic Cre369 GLOB 2.8 g/dL 11/07/2016 Comp Metabolic Hok514 A/G Ratio 1.5 Ratio 11/07/2016 Comp Metabolic Uob870 Osmo 286 mOsmo 11/07/2016 Free T4 Rvh861 FREE T4 0.75 ng/dL 11/07/2016 Tsh Ord6 hTSH II 3.46 uIU/mL 11/07/2016 Comp Metabolic Uji686 NA 138 mEq/L 05/10/2016 Comp Metabolic Dov772 K 3.8 mEq/L 05/10/2016 Comp Metabolic Dtp527 CL 102 mEq/L 05/10/2016 Comp Metabolic Lpb427 CO2 29.0 mEq/L 05/10/2016 Comp Metabolic Okb606 ANION GAP 11 05/10/2016 Comp Metabolic Omo452 GLUCOSE 107 mg/dL 05/10/2016 Comp Metabolic Fgm478 Creat 0.7 mg/dL 05/10/2016 Comp Metabolic Fok106 eGFR 93 ml/min/1.73m2 05/10/2016 Comp Metabolic Mzo031 BUN 18 mg/dL 05/10/2016 Comp Metabolic Gsi904 B/C Ratio 26.9 Ratio 05/10/2016 Comp Metabolic Nki402 CALCIUM 9.8 mg/dL 05/10/2016 Comp Metabolic Slt297 ALK PHOS 60 U/L 05/10/2016 Comp Metabolic Hnh195 AST(SGOT) 21 U/L 05/10/2016 Comp Metabolic Wwe746 ALT(SGPT) 23 U/L 05/10/2016 Comp Metabolic Sft210 BILI T 0.5 mg/dL 05/10/2016 Comp Metabolic Fkf198 ALBUMIN 4.1 g/dL 05/10/2016 Comp Metabolic Ztw410 TPRO 6.7 g/dL 05/10/2016 Comp Metabolic Kqf385 GLOB 2.7 g/dL 05/10/2016 Comp Metabolic Hjn102 A/G Ratio 1.5 Ratio 05/10/2016 Comp Metabolic Wqe935 Osmo 278 mOsmo 05/10/2016 Lipid Ord30 CHOL 169 mg/dL 05/10/2016 Lipid Ord30 HDL 50.0 mg/dl 05/10/2016 Lipid Ord30 TRIG 161 mg/dL 05/10/2016 Lipid Ord30 LDL 87 mg/dL 05/10/2016 Lipid Ord30 C/HDL 3.4 Ratio 05/10/2016 Comp Metabolic Nxp879 NA 137 mEq/L 06/12/2015 Comp Metabolic Lun538 K 3.8 mEq/L 06/12/2015 Comp Metabolic Vna407 CL 104 mEq/L 06/12/2015 Comp Metabolic Bgm508 CO2 24.0 mEq/L 06/12/2015 Comp Metabolic Kdl436 ANION GAP 13 06/12/2015 Comp Metabolic Wdz614 GLUCOSE 92 mg/dL 06/12/2015 Comp Metabolic Kmb719 Creat 0.7 mg/dL 06/12/2015 Comp Metabolic Xgy704 eGFR 87 ml/min/1.73m2 06/12/2015 Comp Metabolic Rbu750 BUN 31 mg/dL 06/12/2015 Comp Metabolic Fbq995 B/C Ratio 43.7 Ratio 06/12/2015 Comp Metabolic Ndd547 CALCIUM 10.0 mg/dL 06/12/2015 Comp Metabolic Iil176 ALK PHOS 58 U/L 06/12/2015 Comp Metabolic Qiu210 AST(SGOT) 32 U/L 06/12/2015 Comp Metabolic Oql285 ALT(SGPT) 33 U/L 06/12/2015 Comp Metabolic Tro370 BILI T 0.5 mg/dL 06/12/2015 Comp Metabolic Vih403 ALBUMIN 4.1 g/dL 06/12/2015 Comp Metabolic Fsr533 TPRO 6.6 g/dL 06/12/2015 Comp Metabolic Iol323 GLOB 2.5 g/dL 06/12/2015 Comp Metabolic Oyw408 A/G Ratio 1.6 Ratio 06/12/2015 Comp Metabolic Vzk154 Osmo 280 mOsmo 06/12/2015 Cbc With Differential [...] Differential Ord2 RDW 14.2 % 06/12/2015 CBC 3085282 WBC 8.7 10e9/L 04/30/2013 CBC 0374774 RBC 4.63 10e12/L 04/30/2013 CBC 8483892 HGB 14.1 g/dL 04/30/2013 CBC 9565440 HCT DET 42.2 % 04/30/2013 CBC 1437957 MCV 91.1 fL 04/30/2013 CBC 8855419 MCH 30.5 pg 04/30/2013 CBC 3641359 MCHC 33.4 g/dL 04/30/2013 CBC 0333323 PLT 248 10e9/L 04/30/2013 CBC 4312221 MPV 12.1 fL 04/30/2013 CBC 1952514 LARA % 59.0 % 04/30/2013 CBC 4697609 LY % 27.6 % 04/30/2013 CBC 1021448 MON % 8.0 % 04/30/2013 CBC 1554864 EOS % 4.8 % 04/30/2013 CBC 2884706 BASO % 0.6 % 04/30/2013 CBC 0444937 RDW 13.3 % 04/30/2013 CBC 3550681 ABS LARA 5.13 10e9/L 04/30/2013 CBC 0241741 ABS LYMPH 2.40 10e9/L 04/30/2013 CBC 6678210 ABS MONO 0.70 10e9/L 04/30/2013 CBC 5542340 ABS EOS 0.42 10e9/L 04/30/2013 CBC 0025080 ABS BASO 0.05 10e9/L 04/30/2013 CBC 9419971 RDW-SD 43.1 fL 04/30/2013 TSH 1706661 TSH 4.339 uIU/ML 04/30/2013 A1C HPLC 7343277 A1C HPLC 44147-7 5.6 % 04/30/2013 FREE T4 7227704 FREE T4 0.84 NG/DL 04/30/2013 GFR CALC 3286483 GFR AA >60 ML/MIN 04/30/2013 GFR CALC 8538813 GFR NON-AA >60 ML/MIN 04/30/2013 CHEM 14 3677996 AST 22 U/L 04/30/2013 CHEM 14 8326143 ALT 22 IU/L 04/30/2013 CHEM 14 3674360 BUN 24 MG/DL 04/30/2013 CHEM 14 1274081 ALBUMIN 4.2 GM/DL 04/30/2013 CHEM 14 7779481 CHLORIDE 107 MMOL/L 04/30/2013 CHEM 14 0952552 BILI TOT 0.3 MG/DL 04/30/2013 CHEM 14 4906189 ALK PHOS 88 U/L 04/30/2013 CHEM 14 7018476 SODIUM 141 MMOL/L 04/30/2013 CHEM 14 7069022 CREATININE 0.60 MG/DL 04/30/2013 CHEM 14 9937258 CALCIUM 9.9 MG/DL 04/30/2013 CHEM 14 4791350 POTASSIUM 3.7 MMOL/L 04/30/2013 CHEM 14 3878078 PROT TOT 6.6 GM/DL 04/30/2013 CHEM 14 1318264 GLUCOSE 123 MG/DL 04/30/2013 CHEM 14 1931481 BICARB 25 MMOL/L 04/30/2013 CHEM 14 1248906 ANION GAP 9 MEQ/L 04/30/2013 LIPID GRP HDL TEST 46 MG/DL 04/30/2013 LIPID GRP TRIG 148 MG/DL 04/30/2013 LIPID GRP TEST LDL 75 MG/DL 04/30/2013 LIPID GRP CHOL 151 MG/DL 04/30/2013 LIPID GRP RCHOL/HDL 3.28 RATIO 04/30/2013 TSH 1844927 TSH 3.341 uIU/ML 11/29/2012 CBC 1492517 WBC 8.4 10e9/L 11/29/2012 CBC 8562337 RBC 4.77 10e12/L 11/29/2012 CBC 1239144 HGB 14.9 g/dL 11/29/2012 CBC 5164184 HCT DET 44.2 % 11/29/2012 CBC 2598647 MCV 92.7 fL 11/29/2012 CBC 5183312 MCH 31.2 pg 11/29/2012 CBC 4030841 MCHC 33.7 g/dL 11/29/2012 CBC 2563526 PLT 253 10e9/L 11/29/2012 CBC 2377190 MPV 11.8 fL 11/29/2012 CBC 5914345 LARA % 54.9 % 11/29/2012 CBC 1582628 LY % 29.0 % 11/29/2012 CBC 1930546 MON % 10.4 % 11/29/2012 CBC 0763559 EOS % 5.1 % 11/29/2012 CBC 4254686 BASO % 0.6 % 11/29/2012 CBC 4338773 RDW 13.8 % 11/29/2012 CBC 6547175 ABS LARA 4.61 10e9/L 11/29/2012 CBC 9458395 ABS LYMPH 2.44 10e9/L 11/29/2012 CBC 8566070 ABS MONO 0.87 10e9/L 11/29/2012 CBC 7402290 ABS EOS 0.43 10e9/L 11/29/2012 CBC 9010179 ABS BASO 0.05 10e9/L 11/29/2012 CBC 4300122 RDW-SD 45.9 fL 11/29/2012 CHEM 14 7129667 AST 25 U/L 11/29/2012 CHEM 14 1023461 ALT 26 IU/L 11/29/2012 CHEM 14 3934766 BUN 25 MG/DL 11/29/2012 CHEM 14 8072033 ALBUMIN 4.4 GM/DL 11/29/2012 CHEM 14 6255783 CHLORIDE 106 MMOL/L 11/29/2012 CHEM 14 9331383 BILI TOT 0.4 MG/DL 11/29/2012 CHEM 14 8028044 ALK PHOS 86 U/L 11/29/2012 CHEM 14 5689527 SODIUM 141 MMOL/L 11/29/2012 CHEM 14 5847245 CREATININE 0.80 MG/DL 11/29/2012 CHEM 14 2837834 CALCIUM 9.7 MG/DL 11/29/2012 CHEM 14 5201713 POTASSIUM 4.0 MMOL/L 11/29/2012 CHEM 14 8050770 PROT TOT 6.6 GM/DL 11/29/2012 CHEM 14 9635446 GLUCOSE 112 MG/DL 11/29/2012 CHEM 14 7364443 BICARB 29 MMOL/L 11/29/2012 CHEM 14 9522217 ANION GAP 6 MEQ/L 11/29/2012 A1C HPLC 7451585 A1C HPLC 05730-4 5.5 % 11/29/2012 LIPID GRP HDL TEST 54 MG/DL 11/29/2012 LIPID GRP TRIG 77 MG/DL 11/29/2012 LIPID GRP TEST LDL 78 MG/DL 11/29/2012 LIPID GRP CHOL 147 MG/DL 11/29/2012 LIPID GRP RCHOL/HDL 2.72 RATIO 11/29/2012 FREE T4 3153356 FREE T4 1.23 NG/DL 11/29/2012 GFR CALC 3886915 GFR AA >60 ML/MIN 11/29/2012 GFR CALC 8211846 GFR NON-AA >60 ML/MIN 11/29/2012 CHEM 14 7419893 AST 23 U/L 08/07/2012 CHEM 14 4229966 ALT 34 IU/L 08/07/2012 CHEM 14 2327441 BUN 26 MG/DL 08/07/2012 CHEM 14 2936416 ALBUMIN 4.4 GM/DL 08/07/2012 CHEM 14 3024262 CHLORIDE 105 MMOL/L 08/07/2012 CHEM 14 6687485 BILI TOT 0.5 MG/DL 08/07/2012 CHEM 14 0630475 ALK PHOS 79 U/L 08/07/2012 CHEM 14 1622272 SODIUM 140 MMOL/L 08/07/2012 CHEM 14 3136747 CREATININE 0.71 MG/DL 08/07/2012 CHEM 14 1778228 CALCIUM 10.4 MG/DL 08/07/2012 CHEM 14 7259785 POTASSIUM 3.8 MMOL/L 08/07/2012 CHEM 14 0638266 PROT TOT 6.8 GM/DL 08/07/2012 CHEM 14 9072812 GLUCOSE 104 MG/DL 08/07/2012 CHEM 14 9743399 BICARB 27 MMOL/L 08/07/2012 CHEM 14 0125496 ANION GAP 8 MEQ/L 08/07/2012 A1C HPLC 2815704 A1C HPLC 94772-7 5.4 % 08/07/2012 FREE T4 0278046 FREE T4 1.11 NG/DL 08/07/2012 LIPID GRP HDL TEST 50 MG/DL 08/07/2012 LIPID GRP TRIG 127 MG/DL 08/07/2012 LIPID GRP TEST LDL 93 MG/DL 08/07/2012 LIPID GRP CHOL 168 MG/DL 08/07/2012 LIPID GRP RCHOL/HDL 3.36 RATIO 08/07/2012 CBC 0011588 WBC 8.7 10e9/L 08/07/2012 CBC 2136715 RBC 4.67 10e12/L 08/07/2012 CBC 2057953 HGB 14.4 g/dL 08/07/2012 CBC 1502377 HCT DET 42.8 % 08/07/2012 CBC 7514967 MCV 91.6 fL 08/07/2012 CBC 9742526 MCH 30.8 pg 08/07/2012 CBC 4719120 MCHC 33.6 g/dL 08/07/2012 CBC 3630192 PLT 271 10e9/L 08/07/2012 CBC 8715762 MPV 12.3 fL 08/07/2012 CBC 2491148 LARA % 50.6 % 08/07/2012 CBC 4131109 LY % 34.9 % 08/07/2012 CBC 8904610 MON % 9.1 % 08/07/2012 CBC 1593777 EOS % 5.1 % 08/07/2012 CBC 5212851 BASO % 0.3 % 08/07/2012 CBC 6138792 RDW 13.6 % 08/07/2012 CBC 3100023 ABS LARA 4.40 10e9/L 08/07/2012 CBC 8983970 ABS LYMPH 3.04 10e9/L 08/07/2012 CBC 5467463 ABS MONO 0.79 10e9/L 08/07/2012 CBC 4480503 ABS EOS 0.44 10e9/L 08/07/2012 CBC 8104339 ABS BASO 0.03 10e9/L 08/07/2012 CBC 8624305 RDW-SD 44.1 fL 08/07/2012 TSH 1826124 TSH 7.419 uIU/ML 08/07/2012 GFR CALC 4500652 GFR AA >60 ML/MIN 08/07/2012 GFR CALC 1920204 GFR NON-AA >60 ML/MIN 08/07/2012 A1C HPLC 7152598 A1C HPLC 28891-7 5.3 % 02/21/2012 TSH 9004665 TSH 0.832 uIU/ML 02/16/2012 FREE T4 4717922 FREE T4 1.04 NG/DL 02/16/2012 GFR CALC 1199021 GFR AA >60 ML/MIN 02/16/2012 GFR CALC 8566743 GFR NON-AA >60 ML/MIN 02/16/2012 BMP 8053074 GLUCOSE 112 MG/DL 02/16/2012 BMP 7647216 CREATININE 0.65 MG/DL 02/16/2012 BMP 5952264 BUN 17 MG/DL 02/16/2012 BMP 9836152 SODIUM 144 MMOL/L 02/16/2012 BMP 8518306 POTASSIUM 4.0 MMOL/L 02/16/2012 BMP CHLORIDE 107 MMOL/L 02/16/2012 BMP 0033338 BICARB 29 MMOL/L 02/16/2012 BMP 2202902 ANION GAP 8 MEQ/L 02/16/2012 BMP 2997047 CALCIUM 9.5 MG/DL 02/16/2012 CBC 9319286 WBC 7.1 10e9/L 02/16/2012 CBC 8264109 RBC 4.47 10e12/L 02/16/2012 CBC 5364262 HGB 13.5 g/dL 02/16/2012 CBC 4925031 HCT DET 40.7 % 02/16/2012 CBC 5518640 MCV 91.1 fL 02/16/2012 CBC 7567485 MCH 30.2 pg 02/16/2012 CBC 6659746 MCHC 33.2 g/dL 02/16/2012 CBC 4155757 PLT 238 10e9/L 02/16/2012 CBC 7753055 MPV 11.4 fL 02/16/2012 CBC 7176717 LARA % 55.7 % 02/16/2012 CBC 0863139 LY % 29.6 % 02/16/2012 CBC 7652455 MON % 9.2 % 02/16/2012 CBC 7080530 EOS % 5.1 % 02/16/2012 CBC 1294144 BASO % 0.4 % 02/16/2012 CBC 2788610 RDW 13.0 % 02/16/2012 CBC 9331114 ABS LARA 3.95 10e9/L 02/16/2012 CBC 8282627 ABS LYMPH 2.10 10e9/L 02/16/2012 CBC 1677375 ABS MONO 0.65 10e9/L 02/16/2012 CBC 9092011 ABS EOS 0.36 10e9/L 02/16/2012 CBC 1671271 ABS BASO 0.03 10e9/L 02/16/2012 CBC 1463015 RDW-SD 42.4 fL 02/16/2012 URINALYSIS NONAUTO W/O SCOPE 59218 Specific [place] 1.015 DateTime(Free Text in Aprima) URINALYSIS NONAUTO W/O SCOPE 55047 PH 7 DateTime(Free Text in Aprima) URINALYSIS NONAUTO W/O SCOPE 53169 GLUCOSE neg DateTime(Free Text in Aprima) URINALYSIS NONAUTO W/O SCOPE 64066 Protein 1+ DateTime(Free Text in Apr[employer]) URINALYSIS NONAUTO W/O SCOPE 87892 Blood neg DateTime(Free Text in Aprima) URINALYSIS NONAUTO W/O SCOPE 70134 Bilirubin neg DateTime(Free Text in Aprima) URINALYSIS NONAUTO W/O SCOPE 99024 Ketones neg DateTime(Free Text in Apr[employer]) URINALYSIS NONAUTO W/O SCOPE 42878 Urobilinogen neg DateTime(Free Text in Aprima) URINALYSIS NONAUTO W/O SCOPE 68178 Nitrite postive DateTime(Free Text in Aprima) URINALYSIS NONAUTO W/O SCOPE 40170 Leukocytes 3+ DateTime(Free Text in Aprima) URINALYSIS NONAUTO W/O SCOPE 06737 Specific [employer] 1.030 DateTime(Free Text in Aprima) URINALYSIS NONAUTO W/O SCOPE 99250 PH 6 DateTime(Free Text in Aprima) URINALYSIS NONAUTO W/O SCOPE 68739 GLUCOSE neg DateTime(Free Text in Aprima) URINALYSIS NONAUTO W/O SCOPE 05032 Protein neg DateTime(Free Text in Aprima) URINALYSIS NONAUTO W/O SCOPE 50701 Blood neg DateTime(Free Text in Aprima) URINALYSIS NONAUTO W/O SCOPE 53587 Bilirubin neg DateTime(Free Text in Aprima) URINALYSIS NONAUTO W/O SCOPE 42452 Ketones neg DateTime(Free Text in Aprima) URINALYSIS NONAUTO W/O SCOPE 81755 Urobilinogen neg DateTime(Free Text in Aprima) URINALYSIS NONAUTO W/O SCOPE 74649 Nitrite neg DateTime(Free Text in Aprima) URINALYSIS NONAUTO W/O SCOPE 56931 Leukocytes trace DateTime(Free Text in Aprima) URINALYSIS NONAUTO W/O SCOPE 22683 Specific [employer] 1.005 DateTime(Free Text in Aprima) URINALYSIS NONAUTO W/O SCOPE 07866 PH 5 DateTime(Free Text in Aprima) URINALYSIS NONAUTO W/O SCOPE 70098 GLUCOSE neg DateTime(Free Text in Aprima) URINALYSIS NONAUTO W/O SCOPE 59854 Protein neg DateTime(Free Text in Aprima) URINALYSIS NONAUTO W/O SCOPE 45973 Blood neg DateTime(Free Text in Aprima) URINALYSIS NONAUTO W/O SCOPE 30778 Bilirubin neg DateTime(Free Text in Aprima) URINALYSIS NONAUTO W/O SCOPE 23677 Ketones neg DateTime(Free Text in Aprima) URINALYSIS NONAUTO W/O SCOPE 16269 Urobilinogen neg DateTime(Free Text in Aprima) URINALYSIS NONAUTO W/O SCOPE 55560 Nitrite neg DateTime(Free Text in ) URINALYSIS NONAUTO W/O SCOPE 87882 Leukocytes neg DateTime(Free Text in ) UA 36577 Specific [employer] 1.030 DateTime(Free Text in ) UA 18308 PH 5 DateTime(Free Text in ) UA 53238 GLUCOSE neg DateTime(Free Text in ) UA 03066 Protein trace DateTime(Free Text in ) UA 67134 Blood large DateTime(Free Text in ) UA 78392 Bilirubin neg DateTime(Free Text in Apr) UA 45617 Ketones neg DateTime(Free Text in ) UA 07020 Urobilinogen neg DateTime(Free Text in ) UA 99764 Nitrite neg DateTime(Free Text in ) UA 54456 Leukocytes large DateTime(Free Text in ) Review [...] General 1995 Eyes conjunctiva/eyelids Overall: eyelids normal 01/29/2019 None Full Exam - General 1995 Ears/Nose/Throat lips/teeth/gingiva Overall: benign lips 01/29/2019 None [...] right middle finger Full Exam - General 1995 Constitutional general appearance Overall: well developed 09/19/2013 [...] clear 05/07/2013 None Full Exam - General 1994 Ears/Nose/Throat oral cavity/pharynx/larynx Overall: no masses 05/07/2013 [...] distress 12/03/2012 None Full Exam - General 1995 Constitutional general appearance Overall: well nourished 12/03/2012 [...] distress 08/08/2012 None Full Exam - General 1995 Constitutional general appearance Overall: well nourished 08/08/2012 None Full Exam - General 1995 Eyes conjunctiva/eyelids Overall: conjunctiva clear 08/08/2012 None Full Exam - General 1994 Eyes conjunctiva/eyelids Overall: cornea clear 08/08/2012 None Full Exam - General 1994 Eyes conjunctiva/eyelids Overall: eyelids normal 08/08/2012 None Full Exam - General 1994 Ears/Nose/Throat external ear Overall: normal appearance 08/08/2012 None Full Exam - General 1994 Ears/Nose/Throat external ear Overall: no masses 08/08/2012 None Full Exam - General 1995 Ears/Nose/Throat external ear Overall: normal mastoids 08/08/2012 None Full Exam - General 1995 [...] Codes Date URINALYSIS NONAUTO W/O SCOPE CPT-4: 00490 07/10/2018 TRIAMCINOLONE ACET INJ NOS CPT-4: J3301 05/28/2018 ROCEPHIN, PER 250 MG CPT- 4: J0696 05/28/2018 ROCEPHIN, PER 250 MG CPT- 4: J0696 01/19/2018 TRIAMCINOLONE ACET INJ NOS CPT-4: J3301 01/19/2018 PPPS, SUBSEQ VISIT CPT- 4: G0439 11/23/2017 TRIAMCINOLONE ACET INJ NOS CPT-4: J3301 06/27/2017 THER/PROPH/DIAG INJ SC/IM CPT-4: 60329 04/20/2017 TRIAMCINOLONE ACET INJ NOS CPT-4: J3301 04/20/2017 TRIAMCINOLONE ACET INJ NOS CPT-4: J3301 03/14/2017 ROCEPHIN, PER 250 MG CPT- 4: J0696 03/14/2017 DESTRUCT PREMALG LESION CPT-4: 32071 12/05/2016 DESTRUCT PREMALG LES 2-14 CPT-4: 83467 12/05/2016 URINALYSIS NONAUTO W/O SCOPE CPT-4: 68324 11/28/2016 ROCEPHIN, PER 250 MG CPT- 4: J0696 11/28/2016 PPPS, SUBSEQ VISIT CPT- 4: G0439 11/07/2016 THER/PROPH/DIAG INJ SC/IM CPT-4: 16173 11/07/2016 TRIAMCINOLONE ACET INJ NOS CPT-4: J3301 11/07/2016 ROCEPHIN, PER 250 MG CPT- 4: J0696 11/07/2016 THER/PROPH/DIAG INJ SC/IM CPT-4: 40869 08/15/2016 TRIAMCINOLONE ACET INJ NOS CPT-4: J3301 08/15/2016 ROCEPHIN, PER 250 MG CPT- 4: J0696 08/15/2016 URINALYSIS NONAUTO W/O SCOPE CPT-4: 63468 05/05/2016 ROCEPHIN, PER 250 MG CPT- 4: J0696 12/07/2015 TRIAMCINOLONE ACET INJ NOS CPT-4: J3301 11/24/2015 ROCEPHIN, PER 250 MG CPT- 4: J0696 11/24/2015 THER/PROPH/DIAG INJ SC/IM CPT-4: 46483 11/24/2015 THER/PROPH/DIAG INJ SC/IM CPT-4: 18605 08/27/2015 KETOROLAC TROMETHAMINE INJ CPT-4: J1885 08/27/2015 PROMETHAZINE HCL INJECTION CPT-4: J2550 08/27/2015 THER/PROPH/DIAG INJ SC/IM CPT-4: 31359 08/10/2015 TRIAMCINOLONE ACET INJ NOS CPT-4: J3301 08/10/2015 ROCEPHIN, PER 250 MG CPT- 4: J0696 08/10/2015 C WOUN RTS (CULTURE OTHR SPECIMN AEROBIC) CPT-4: 03020 07/28/2015 THER/PROPH/DIAG INJ SC/IM CPT-4: 63981 03/19/2015 TRIAMCINOLONE ACET INJ NOS CPT-4: J3301 03/19/2015 ROCEPHIN, PER 250 MG CPT- 4: J0696 06/23/2014 TRIAMCINOLONE ACET INJ NOS CPT-4: J3301 06/23/2014 INJ TRIGGER POINT 1/2 MUSCL CPT-4: 26084 06/05/2014 URINALYSIS NONAUTO W/O SCOPE CPT-4: 87823 02/11/2014 URINALYSIS NONAUTO W/O SCOPE CPT-4: 04706 10/15/2013 ROCEPHIN, PER 250 MG CPT- 4: J0696 09/24/2013 THER/PROPH/DIAG INJ SC/IM CPT-4: 89647 09/19/2013 ROCEPHIN, PER 250 MG CPT- 4: J0696 09/19/2013 PRESCRIP TRANSMIT VIA ERX SY CPT-4: G8553 08/05/2013 ROCEPHIN, PER 250 MG CPT- 4: J0696 07/10/2013 THER/PROPH/DIAG INJ SC/IM CPT-4: 22921 07/10/2013 TRIAMCINOLONE ACET INJ NOS CPT-4: J3301 07/10/2013 PRESCRIP TRANSMIT VIA ERX SY CPT-4: G8553 07/10/2013 43482 EST. PATIENT, LEVEL III CPT-4: 27814 06/03/2013 PRESCRIP TRANSMIT VIA ERX SY CPT-4: G8553 06/03/2013 PRESCRIP TRANSMIT VIA ERX SY CPT-4: G8553 05/07/2013 ROUTINE VENIPUNCTURE CPT- 4: 27960 04/30/2013 ROUTINE VENIPUNCTURE CPT- 4: 86911 11/29/2012 TRIAMCINOLONE ACET INJ NOS CPT-4: J3301 09/24/2012 THER/PROPH/DIAG INJ SC/IM CPT-4: 97371 09/24/2012 URINALYSIS NONAUTO W/O SCOPE CPT-4: 86809 09/24/2012 PRESCRIP TRANSMIT VIA ERX SY CPT-4: G8553 09/24/2012 PRESCRIP TRANSMIT VIA ERX SY CPT-4: G8553 09/10/2012 PRESCRIP TRANSMIT VIA ERX SY CPT-4: G8553 08/08/2012 ROUTINE VENIPUNCTURE CPT- 4: 66993 08/07/2012 ROUTINE VENIPUNCTURE CPT- 4: 99177 02/16/2012 URINALYSIS NONAUTO W/O SCOPE CPT-4: 56120 02/15/2012 ROCEPHIN, PER 250 MG CPT- 4: J0696 02/15/2012 PRESCRIP TRANSMIT VIA ERX SY CPT-4: G8553 02/15/2012 ROUTINE VENIPUNCTURE CPT- 4: 56585 11/08/2011 ROCEPHIN, PER 250 MG CPT- 4: J0696 07/14/2011 THER/PROPH/DIAG INJ SC/IM CPT-4: 79128 07/14/2011 Influenza Virus Vaccine, Split Virus, >3 Yrs, IM CPT-4: 58194 05/23/2011 IMMUNIZATION ADMIN CPT- 4: 13090 05/23/2011 THER/PROPH/DIAG INJ SC/IM CPT-4: 66018 05/03/2011 ROCEPHIN, PER 250 MG CPT- 4: J0696 05/03/2011 TRIAMCINOLONE ACET INJ NOS CPT-4: J3301 05/03/2011 Vital Signs Date Vital 01/29/2019 Blood Pressure 1: 138/88 Code: 8480-6 BMI: 31.9 Code: 04186-6 Heart Rate 1: 74 bpm Height: 4'11" SpO2: 94% Weight: 158 lbs 11/27/2018 Blood Pressure 1: 144/82 Code: 8480-6 Heart Rate 1: 67 bpm SpO2: 93% 11/16/2018 Blood Pressure 1: 168/100 Code: 8480-6 Heart Rate 1: 74 bpm SpO2: 96% 11/13/2018 Blood Pressure 1: 184/98 Code: 8480-6 BMI: 32.1 Code: 19952-6 Heart Rate 1: 68 bpm Height: 4'11" SpO2: 96% Weight: 159 lbs 10/30/2018 Blood Pressure 1: 158/98 Code: 8480-6 BMI: 31.7 Code: 79113-7 Heart Rate 1: 80 bpm Height: 4'11" SpO2: 96% Weight: 157 lbs 10/08/2018 Blood Pressure 1: 140/80 Code: 8480-6 BMI: 32.1 Code: 33940-5 Heart Rate 1: 92 bpm Height: 4'11" SpO2: 103% Weight: 159 lbs 07/16/2018 Blood Pressure 1: 142/80 Code: 8480-6 BMI: 31.1 Code: 62813-9 Heart Rate 1: 78 bpm Height: 4'11" SpO2: 98% Weight: 154 lbs 07/10/2018 Blood Pressure 1: 156/82 Code: 8480-6 BMI: 31.1 Code: 68857-2 Heart Rate 1: 63 bpm Height: 4'11" SpO2: 99% Weight: 154 lbs 05/28/2018 Blood Pressure 1: 142/80 Code: 8480-6 Heart Rate 1: 82 bpm Height: SpO2: 97% Temperature: 35.9 (C) / 96.6 (F) Weight: 02/07/2018 Height: Weight: 01/19/2018 Blood Pressure 1: 128/76 Code: 8480-6 BMI: 31.2 Code: 16722-4 Heart Rate 1: 71 bpm Height: 4'11" SpO2: 96% Temperature: 36.5 (C) / 97.7 (F) Weight: 154 lbs 8 oz 11/23/2017 Blood Pressure 1: 146/80 Code: 8480-6 BMI: 31.7 Code: 06220-6 Heart Rate 1: 64 bpm Height: 4'11" SpO2: 97% Waist Measure (cm): 89 cm Weight: 157 lbs 09/12/2017 Blood Pressure 1: 140/86 Code: 8480-6 Heart Rate 1: 62 bpm SpO2: 96% Temperature: 36.6 (C) / 97.8 (F) Weight: 153 lbs 07/25/2017 Blood Pressure 1: 140/72 Code: 8480-6 BMI: 31.3 Code: 03115-6 Heart Rate 1: 76 bpm Height: 4'11" SpO2: 97% Temperature: 37.2 (C) / 99.0 (F) Weight: 155 lbs 06/27/2017 Blood Pressure 1: 144/84 Code: 8480-6 BMI: 31.1 Code: 74653-4 Heart Rate 1: 63 bpm Height: 4'11" SpO2: 99% Temperature: 36.4 (C) / 97.6 (F) Weight: 154 lbs 05/08/2017 Blood Pressure 1: 142/86 Code: 8480-6 BMI: 30.9 Code: 33309-6 Height: 4'11" Temperature: 36.3 (C) / 97.4 (F) Weight: 153 lbs 03/14/2017 Blood Pressure 1: 146/82 Code: 8480-6 BMI: 30.9 Code: 10791-2 Heart Rate 1: 64 bpm Height: 4'11" SpO2: 94% Weight: 153 lbs 02/20/2017 Blood Pressure 1: 142/80 Code: 8480-6 BMI: 30.9 Code: 18610-2 Heart Rate 1: 75 bpm Height: 4'11" SpO2: 97% Weight: 153 lbs 02/06/2017 Blood Pressure 1: 138/90 Code: 8480-6 BMI: 31.5 Code: 79368-5 Heart Rate 1: 61 bpm Height: 4'11" SpO2: 98% Weight: 156 lbs 12/05/2016 Blood Pressure 1: 122/72 Code: 8480-6 Heart Rate 1: 59 bpm Height: 4'11" SpO2: 98% Weight: 11/28/2016 Blood Pressure 1: 154/86 Code: 8480-6 BMI: 31.3 Code: 27411-6 Heart Rate 1: 64 bpm Height: 4'11" SpO2: 94% Temperature: 36.2 (C) / 97.2 (F) Weight: 155 lbs 11/07/2016 Blood Pressure 1: 128/64 Code: 8480-6 BMI: 31.5 Code: 60998-5 Heart Rate 1: 59 bpm Height: 4'11" SpO2: 97% Weight: 156 lbs 08/15/2016 Blood Pressure 1: 110/62 Code: 8480-6 BMI: 31.5 Code: 47475-5 Heart Rate 1: 76 bpm Height: 4'11" SpO2: 97% Weight: 156 lbs 06/07/2016 Blood Pressure 1: 120/80 Code: 8480-6 BMI: 32.9 Code: 90236-4 Heart Rate 1: 63 bpm Height: 4'11" SpO2: 93% Temperature: 36.5 (C) / 97.7 (F) Weight: 163 lbs 03/15/2016 Blood Pressure 1: 90/42 Code: 8480-6 Heart Rate 1: 65 bpm SpO2: 94% 03/14/2016 Blood Pressure 1: 188/110 Code: 8480-6 Heart Rate 1: 68 bpm SpO2: 96% 02/22/2016 Blood Pressure 1: 158/80 Code: 8480-6 BMI: 32.7 Code: 86222-4 Heart Rate 1: 71 bpm Height: 4'11" SpO2: 95% Weight: 162 lbs 12/07/2015 Blood Pressure 1: 140/88 Code: 8480-6 BMI: 32.9 Code: 34855-3 Heart Rate 1: 99 bpm Height: 4'11" SpO2: 94% Temperature: 35.9 (C) / 96.6 (F) Weight: 163 lbs 11/24/2015 Blood Pressure 1: 144/78 Code: 8480-6 BMI: 33.7 Code: 24540-6 Heart Rate 1: 60 bpm Height: 4'11" SpO2: 98% Temperature: 36.6 (C) / 97.9 (F) Weight: 167 lbs 08/27/2015 Blood Pressure 1: 164/82 Code: 8480-6 BMI: 32.3 Code: 31045-1 Heart Rate 1: 60 bpm Height: 4'11" SpO2: 93% Weight: 160 lbs 08/10/2015 Blood Pressure 1: 130/60 Code: 8480-6 BMI: 32.5 Code: 71323-2 Heart Rate 1: 64 bpm Height: 4'11" SpO2: 97% Weight: 161 lbs 07/28/2015 Blood Pressure 1: 124/68 Code: 8480-6 BMI: 32.5 Code: 78616-4 Heart Rate 1: 69 bpm Height: 4'11" SpO2: 97% Weight: 161 lbs 06/11/2015 Blood Pressure 1: 148/80 Code: 8480-6 BMI: 32.9 Code: 14605-7 Heart Rate 1: 70 bpm Height: 4'11" SpO2: 94% Weight: 163 lbs 03/19/2015 Blood Pressure 1: 150/102 Code: 8480-6 Blood Pressure 2: 152/92 Code: 8480-6 BMI: 32.5 Code: 25764-3 Heart Rate 1: 71 bpm Height: 4'11" SpO2: 96% Weight: 161 lbs 01/07/2015 Blood Pressure 1: 126/84 Code: 8480-6 Heart Rate 1: 80 bpm Height: 4'11" 09/23/2014 Blood Pressure 1: 112/72 Code: 8480-6 BMI: 33.9 Code: 69077-0 Heart Rate 1: 72 bpm Height: 4'11" Weight: 168 lbs 08/05/2014 Blood Pressure 1: 140/86 Code: 8480-6 BMI: 33.3 Code: 73914-8 Height: 4'11" Weight: 165 lbs 06/23/2014 Blood Pressure 1: 132/70 Code: 8480-6 BMI: 32.9 Code: 19861-2 Heart Rate 1: 58 bpm Height: 4'11" Temperature: 36.0 (C) / 96.8 (F) Weight: 163 lbs 06/05/2014 Blood Pressure 1: 121/85 Code: 8480-6 BMI: 34.3 Code: 47235-0 Height: 4'11" Weight: 170 lbs 04/03/2014 Blood Pressure 1: 128/80 Code: 8480-6 Heart Rate 1: 88 bpm Weight: 167 lbs 03/07/2014 Blood Pressure 1: 122/82 Code: 8480-6 BMI: 33.9 Code: 49062-8 Heart Rate 1: 68 bpm Height: 4'11" Weight: 168 lbs 11/21/2013 Blood Pressure 1: 100/58 Code: 8480-6 BMI: 33.7 Code: 49971-8 Heart Rate 1: 64 bpm Height: 4'11" Weight: 167 lbs 09/24/2013 Blood Pressure 1: 148/88 Code: 8480-6 Heart Rate 1: 68 bpm Weight: 09/19/2013 Blood Pressure 1: 120/80 Code: 8480-6 BMI: 33.9 Code: 70952-5 Heart Rate 1: 80 bpm Height: 4'11" Temperature: 36.9 (C) / 98.5 (F) Weight: 168 lbs 08/05/2013 Blood Pressure 1: 128/80 Code: 8480-6 BMI: 34.3 Code: 97466-0 Heart Rate 1: 64 bpm Height: 4'11" Temperature: 36.2 (C) / 97.2 (F) Weight: 170 lbs 07/10/2013 Blood Pressure 1: 120/84 Code: 8480-6 BMI: 36.0 Code: 14197-2 Heart Rate 1: 90 bpm Height: 4'11" SpO2: 97% Temperature: 36.8 (C) / 98.2 (F) Weight: 178 lbs 06/03/2013 Blood Pressure 1: 136/94 Code: 8480-6 BMI: 34.7 Code: 15876-0 Heart Rate 1: 68 bpm Height: 4'11" Temperature: 36.7 (C) / 98.0 (F) Weight: 172 lbs 05/13/2013 Blood Pressure 1: 132/90 Code: 8480-6 Heart Rate 1: 68 bpm 05/07/2013 Blood Pressure 1: 168/100 Code: 8480-6 BMI: 34.3 Code: 33636-6 Heart Rate 1: 76 bpm Height: 4'11" Weight: 170 lbs 12/03/2012 Blood Pressure 1: 142/78 Code: 8480-6 BMI: 33.5 Code: 79739-4 Heart Rate 1: 76 bpm Height: 4'11" Weight: 166 lbs 09/24/2012 Blood Pressure 1: 116/70 Code: 8480-6 Heart Rate 1: 68 bpm Respiratory Rate: 16 bpm Temperature: 36.9 (C) / 98.4 (F) Weight: 162 lbs 09/10/2012 Blood Pressure 1: 116/80 Code: 8480-6 BMI: 33.7 Code: 40088-0 Heart Rate 1: 76 bpm Height: 4'11" [...] 1: 149/85 Code: 8480-6 BMI: 32.9 Code: 33175-8 Heart Rate 1: 79 bpm Height: 4'11" Weight: 164 lbs 05/03/2011 Blood Pressure 1: 122/79 Code: 8480-6 BMI: 30.8 Code: 64820-3 Heart Rate 1: 72 bpm Height: 5'1" Weight: 163 lbs 04/25/2011 Blood Pressure 1: 137/84 Code: 8480-6 BMI: 31.0 Code: 71190-9 Heart Rate 1: 63 bpm Height: 5'1" [...] None chest congestion Triggers ill contacts 01/19/2018 manjeet have strep chest congestion Pertinent Findings cough [...] days ago 02/15/2012 while visiting mother in [place] had uti and was put on pyridum [...] Encounters Encounter Performer Location Codes Date ( 28889 EST. PATIENT, LEVEL III Diagnosis: Functional diarrhea[ICD10: K59.1] Melba Goldman MD, [facility] CPT- 4: 47688 01/29/2019 ([id number]) Miscellaneous no charge Diagnosis: Essential (primary) hypertension[ICD10: I10] Melba Goldman MD, [facility] CPT-4: 41428 11/16/2018 ([id number]) 89526 EST. PATIENT, LEVEL III Diagnosis: Essential (primary) hypertension[ICD10: I10] Shahida Goldman MD, [facility] CPT-4: 49800 11/13/2018 ([id number]) 01745 EST. PATIENT, LEVEL IV Diagnosis: Essential (primary) hypertension[ICD10: I10] Diagnosis: Mixed hyperlipidemia[ICD10: E78.2] Diagnosis: Hypothyroidism, unspecified[ICD10: E03.9] Shahida Goldman MD, [facility] CPT-4: 20526 10/30/2018 50178 EST. PATIENT, LEVEL III Diagnosis: Other mucopurulent conjunctivitis, bilateral[ICD10: H10.023] Diagnosis: Other allergic rhinitis[ICD10: J30.89] Shahida Goldman MD, [facility] CPT-4: 41211 10/08/2018 64473 EST. PATIENT, LEVEL III Diagnosis: Essential (primary) hypertension[ICD10: I10] Diagnosis: Generalized anxiety disorder[ICD10: F41.1] Isabelle Goldman MD, [facility] CPT-4: 39003 07/16/2018 ([id number]) 10297 EST. PATIENT, LEVEL III Diagnosis: Acute recurrent maxillary sinusitis[ICD10: J01.01] Diagnosis: Frequency of micturition[ICD10: R35.0] Diagnosis: Low back pain[ICD10: M54.5] Shahida Goldman MD, [facility] CPT-4: 85761 07/10/2018 ([id number]) 50280 EST. PATIENT, LEVEL III Diagnosis: Acute recurrent maxillary sinusitis[ICD10: J01.01] Shahida Goldman MD, [facility] CPT-4: 47672 05/28/2018 ([id number]) Miscellaneous no charge Diagnosis: Laceration without foreign body, left lower leg, subsequent encounter[ICD10: S81.812D] Diagnosis: Laceration without foreign body, right lower leg, subsequent encounter[ICD10: S81.811D] Isabelle Goldman MD, [facility] CPT-4: 48758 02/08/2018 41998 EST. PATIENT, LEVEL III Diagnosis: Cellulitis of left lower limb[ICD10: L03.116] Diagnosis: Cellulitis of right lower limb[ICD10: L03.115] Diagnosis: Laceration without foreign body, left lower leg, initial encounter[ICD10: S81.812A] Diagnosis: Laceration without foreign body, right lower leg, initial encounter[ICD10: S81.811A] Isabelle Goldman MD, [facility] CPT-4: 66277 02/07/2018 ([id number]) 15800 EST. PATIENT, LEVEL IV Diagnosis: Primary generalized (osteo)arthritis[ICD10: M15.0] Diagnosis: Acute recurrent maxillary sinusitis[ICD10: J01.01] Diagnosis: Low back pain[ICD10: M54.5] Diagnosis: Other allergic rhinitis[ICD10: J30.89] Diagnosis: Obstructive sleep apnea (adult) (pediatric)[ICD10: G47.33] Shahida Goldman MD, [facility] CPT-4: 97814 01/19/2018 95559 EST. PATIENT, LEVEL IV Diagnosis: Diarrhea, unspecified[ICD10: R19.7] Diagnosis: Generalized abdominal pain[ICD10: R10.84] Diagnosis: Other allergic rhinitis[ICD10: J30.89] Diagnosis: Other acute sinusitis[ICD10: J01.80] Isabelle Goldman MD, [facility] CPT- 4: 42533 09/12/2017 43005 EST. PATIENT, LEVEL III Diagnosis: Acute laryngopharyngitis[ICD10: J06.0] Diagnosis: Other allergic rhinitis[ICD10: J30.89] Diagnosis: Cough[ICD10: R05] Diagnosis: Wheezing[ICD10: R06.2] Isabelle Goldman MD, [facility] CPT-4: 43355 07/25/2017 ([id number]) 84774 EST. PATIENT, LEVEL IV Diagnosis: Acute recurrent maxillary sinusitis[ICD10: J01.01] Diagnosis: Cervicalgia[ICD10: M54.2] Diagnosis: Diarrhea, unspecified[ICD10: R19.7] Shahida Goldman MD, [facility] CPT-4: 72313 06/27/2017 ([id number]) 24827 EST. PATIENT, LEVEL III Diagnosis: Chronic maxillary sinusitis[ICD10: J32.0] Diagnosis: Gastro-esophageal reflux disease without esophagitis[ICD10: K21.9] Shahida Goldman MD, [facility] CPT-4: 25803 05/08/2017 ([id number]) 48983 EST. PATIENT, LEVEL III Diagnosis: Acute recurrent maxillary sinusitis[ICD10: J01.01] Shahida Goldman MD, [facility] CPT-4: 84015 03/14/2017 29695 EST. PATIENT, LEVEL IV Diagnosis: Epigastric pain[ICD10: R10.13] Diagnosis: Left upper quadrant pain[ICD10: R10.12] Diagnosis: Left lower quadrant pain[ICD10: R10.32] Isabelle Goldman MD, [facility] CPT-4: 43387 02/20/2017 ([id number]) 74912 EST. PATIENT, LEVEL IV Diagnosis: Generalized anxiety disorder[ICD10: F41.1] Diagnosis: Major depressive disorder, recurrent, moderate[ICD10: F33.1] Diagnosis: Left upper quadrant pain[ICD10: R10.12] Diagnosis: Epigastric pain[ICD10: R10.13] Diagnosis: Actinic keratosis[ICD10: L57.0] Melba Goldman MD, [facility] CPT-4: 15829 02/06/2017 ([id number]) 55171 EST. PATIENT, LEVEL III Diagnosis: Actinic keratosis[ICD10: L57.0] Diagnosis: Major depressive disorder, recurrent, moderate[ICD10: F33.1] Melba Goldman MD, [facility] CPT-4: 49065 12/05/2016 ([id number]) 96648 EST. PATIENT, LEVEL III Diagnosis: Acute recurrent maxillary sinusitis[ICD10: J01.01] Diagnosis: Dysuria[ICD10: R30.0] Shahida Goldman MD, [facility] CPT-4: 28764 11/28/2016 78999 EST. PATIENT, LEVEL IV Diagnosis: Other acute sinusitis[ICD10: J01.80] Diagnosis: Acute laryngopharyngitis[ICD10: J06.0] Diagnosis: Other allergic rhinitis[ICD10: J30.89] Isabelle Goldman MD, [facility] CPT- 4: 97471 08/15/2016 ([id number]) 12367 EST. PATIENT, LEVEL III Diagnosis: Acute recurrent maxillary sinusitis[ICD10: J01.01] Diagnosis: Low back pain[ICD10: M54.5] Shahida Goldman MD, [facility] CPT-4: 35514 06/07/2016 ([id number]) Miscellaneous no charge Diagnosis: Essential (primary) hypertension[ICD10: I10] Shahida Goldman MD, [facility] CPT-4: 81315 03/15/2016 84900 EST. PATIENT, LEVEL IV Diagnosis: Essential (primary) hypertension[ICD10: I10] Diagnosis: Headache[ICD10: R51] Diagnosis: Generalized anxiety disorder[ICD10: F41.1] Shahida Goldman MD, [facility] CPT-4: 76454 03/14/2016 60275 EST. PATIENT, LEVEL III Diagnosis: Laceration without foreign body, left lower leg, initial encounter[ICD10: S81.812A] Isabelle Goldman MD, [facility] CPT-4: 10917 02/22/2016 ([id number]) 83870 EST. PATIENT, LEVEL III Diagnosis: Acute recurrent maxillary sinusitis[ICD10: J01.01] Diagnosis: Cough[ICD10: R05] Diagnosis: Allergic rhinitis due to pollen[ICD10: J30.1] Shahida Goldman MD, [facility] CPT-4: 28501 12/07/2015 ([id number]) 63483 EST. PATIENT, LEVEL IV Diagnosis: Essential (primary) hypertension[ICD10: I10] Diagnosis: Acute recurrent maxillary sinusitis[ICD10: J01.01] Diagnosis: Generalized anxiety disorder[ICD10: F41.1] Diagnosis: Cervicalgia[ICD10: M54.2] Diagnosis: Generalized intra-abdominal and pelvic swelling, mass and lump[ICD10: R19.07] Melba Goldman MD, [facility] CPT-4: 96339 11/24/2015 58407 EST. PATIENT, LEVEL III Diagnosis: Other migraine, intractable, without status migrainosus[ICD10: G43.819] Isabelle Goldman MD, [facility] CPT-4: 83204 08/27/2015 94057 EST. PATIENT, LEVEL III Diagnosis: Acute recurrent maxillary sinusitis[ICD10: J01.01] Diagnosis: Candidal stomatitis[ICD10: B37.0] Diagnosis: Acute laryngopharyngitis[ICD10: J06.0] Isabelle Goldman MD, [facility] CPT- 4: 76663 08/10/2015 52526 EST. PATIENT, LEVEL III Diagnosis: Superficial foreign body of left hand, initial encounter[ICD10: S60.552A] Melba Goldman MD, [facility] CPT-4: 12224 07/28/2015 ([id number]) 26358 EST. PATIENT, LEVEL III Diagnosis: Essential (primary) hypertension[ICD10: I10] Diagnosis: Tinea cruris[ICD10: B35.6] Diagnosis: Abnormal levels of other serum enzymes[ICD10: R74.8] Shahida oGldman MD, [facility] CPT-4: 72344 06/11/2015 ([id number]) 48521 EST. PATIENT, LEVEL IV Diagnosis: ESSENTIAL HYPERTENSION[ICD9: 401.9] Diagnosis: Hypothyroid[ICD9: 244.9] Diagnosis: ALLERGIC RHINITIS[ICD9: 477.9] Diagnosis: Anxiety[ICD9: 300.00] Diagnosis: Sleep apnea[ICD9: 780.57] Shahida Goldman MD, [facility] CPT-4: 69696 03/19/2015 ([id number]) 99103 EST. PATIENT, LEVEL III Diagnosis: ACUTE SINUSITIS[ICD9: 461.9] Celi Goldman MD, [facility] CPT-4: 50789 01/07/2015 ([id number]) 60870 EST. PATIENT, LEVEL III Diagnosis: Conjunctivitis[ICD9: 372.30] Shahida Goldman MD, [facility] CPT-4: 06915 09/23/2014 45494 EST. PATIENT, LEVEL II Diagnosis: Noninfected skin tear of leg[ICD9: 891.0] Shahida Goldman MD [facility] CPT-4: 85486 08/05/2014 ([id number]) 47820 EST. PATIENT, LEVEL III Diagnosis: Chronic maxillary sinusitis[ICD9: 473.0] Shahida Goldman MD [facility] CPT-4: 46215 06/23/2014 12691 EST. PATIENT, LEVEL II Diagnosis: Headache[ICD9: 784.0] Shahida Goldman MD, [facility] CPT-4: 91907 06/05/2014 ([id number]) 55966 EST. PATIENT, LEVEL III Diagnosis: Abrasion of right leg[ICD9: 916.0] Diagnosis: Headache[ICD9: 784.0] Diagnosis: ALLERGIC RHINITIS[ICD9: 477.9] Shahida Goldman MD, [facility] CPT-4: 67841 04/03/2014 72117 EST. PATIENT, LEVEL II Diagnosis: Tinea corporis[ICD9: 110.5] Diagnosis: Exposure to scabies[ICD9: V01.89] Shahida Goldman MD, [facility] CPT- 4: 32765 03/07/2014 ([id number]) 77761 EST. PATIENT, LEVEL III Diagnosis: ESSENTIAL HYPERTENSION[SNOMED: 10030962] Diagnosis: OSTEOARTH NOS-UNSPEC[ICD9: 715.90] Diagnosis: Lumbago[ICD9: 724.2] Diagnosis: Cervicalgia[ICD9: 723.1] Shahida Goldman MD, [facility] CPT-4: 44600 11/21/2013 ([id number]) 65353 EST. PATIENT, LEVEL III Diagnosis: DEPRESSIVE DISORDER NEC[ICD9: 311] Diagnosis: Paronychia[ICD9: 681.9] Melba Goldman MD, [facility] CPT-4: 82677 09/24/2013 ([id number]) 57353 EST. PATIENT, LEVEL III Diagnosis: Paronychia[ICD9: 681.9] Diagnosis: Cellulitis[ICD9: 682.9] Melba Goldman MD, [facility] CPT-4: 68886 09/19/2013 ([id number]) 44950 EST. PATIENT, LEVEL III Diagnosis: Conjunctivitis[ICD9: 372.30] Diagnosis: Thrush[ICD9: 112.0] Shahida Goldman MD, [facility] CPT-4: 01669 08/05/2013 ([id number]) 59638 EST. PATIENT, LEVEL III Diagnosis: ACUTE MAXILLARY SINUSITIS[ICD9: 461.0] Diagnosis: COUGH[ICD9: 786.2] Diagnosis: Insomnia[ICD9: 780.52] Diagnosis: ESOPHAGEAL REFLUX[ICD9: 530.81] Melba Goldman MD [facility] CPT-4: 77912 07/10/2013 ([id number]) Miscellaneous no charge Diagnosis: ESSENTIAL HYPERTENSION[SNOMED: 28929478] Melba Goldman MD [facility] CPT-4: 69872 05/13/2013 ([id number]) 14889 EST. PATIENT, LEVEL IV Diagnosis: ESSENTIAL HYPERTENSION[SNOMED: 74608645] Diagnosis: HYPOTHYROIDISM[ICD9: 244.9] Diagnosis: OSTEOARTH NOS-UNSPEC[ICD9: 715.90] Melba Goldman MD, [facility] CPT- 4: 04265 05/07/2013 ([id number]) 57705 EST. PATIENT, LEVEL IV Diagnosis: Osteoarthritis[ICD9: 715.90] Diagnosis: Knee pain, bilateral[ICD9: 719.46] Diagnosis: Hip pain[ICD9: 719.45] Melba Goldman MD, [facility] CPT-4: 25647 12/03/2012 ([id number]) 80284 EST. PATIENT, LEVEL III Diagnosis: Thrush[ICD9: 112.0] Melba Goldman MD [facility] CPT-4: 51526 09/24/2012 ([id number]) 34040 EST. PATIENT, LEVEL IV Diagnosis: ESSENTIAL HYPERTENSION[SNOMED: 56708153] Diagnosis: Thrush[ICD9: 112.0] Diagnosis: Sleep apnea[ICD9: 780.57] Melba Goldman MD, [facility] CPT-4: 56123 09/10/2012 ([id number]) 19878 EST. PATIENT, LEVEL IV Diagnosis: Esophageal reflux[ICD9: 530.81] Diagnosis: Hypothyroid[ICD9: 244.9] Diagnosis: JOINT PAIN-MULT JOINTS[ICD9: 719.49] Diagnosis: ALLERGIC RHINITIS[ICD9: 477.9] Melba Goldman MD, [facility] CPT-4: 77073 08/08/2012 ([id number]) 89564 EST. PATIENT, LEVEL IV Diagnosis: Urinary frequency[ICD9: 788.41] Diagnosis: EDEMA[ICD9: 782.3] Diagnosis: HYPOTHYROIDISM[ICD9: 244.9] Diagnosis: Fatigue[ICD9: 780.79] Melba Goldman MD, [facility] CPT-4: 66112 02/15/2012 ([id number]) 78831 EST. PATIENT, LEVEL IV Diagnosis: Abdominal pain[ICD9: 789.00] Diagnosis: Fatigue[ICD9: 780.79] Diagnosis: Nausea[ICD9: 787.02] Melba Goldman MD, [facility] CPT-4: 94479 11/10/2011 [id number] EST. PATIENT, LEVEL IV Diagnosis: ESSENTIAL HYPERTENSION[SNOMED: 74743157] Diagnosis: DIARRHEA[ICD9: 787.91] Diagnosis: DEPRESSIVE DISORDER NEC[ICD9: 311] Diagnosis: Irritable bowel disease[ICD9: 564.1] Melba Goldman MD, [facility] CPT- 4: 78518 08/01/2011 [id number] EST. PATIENT, LEVEL III Diagnosis: ACUTE SINUSITIS[ICD9: 461.9] Diagnosis: Cough[ICD9: 786.2] Shahida Goldman MD, [facility] CPT-4: 36323 07/14/2011 [id number] EST. PATIENT, LEVEL IV Diagnosis: VACCIN FOR INFLUENZA[ICD9: V04.81] Diagnosis: ESSENTIAL HYPERTENSION[SNOMED: 73742488] Diagnosis: GENERALIZED ANXIETY DISEASE[ICD9: 300.02] Diagnosis: SLEEP DISTURBANCES[ICD9: 780.50] Shahida Goldman MD, [facility] CPT- 4: 44610 05/23/2011 [id number] EST. PATIENT, LEVEL III Diagnosis: ACUTE SINUSITIS[ICD9: 461.9] Diagnosis: ALLERGIC RHINITIS[ICD9: 477.9] Diagnosis: Cough[ICD9: 786.2] [facility] CPT-4: 33354 05/03/2011 32347 EST. PATIENT, LEVEL IV Diagnosis: ESSENTIAL HYPERTENSION[SNOMED: 38706185] Diagnosis: DEPRESSIVE DISORDER NEC[ICD9: 311] Diagnosis: Fatigue[ICD9: 780.79] [facility] CPT-4: 65950 04/25/2011 Plan of Care Planned Activity Notes [...] good probiotic. 01/29/2019 Appointment: Melba Goldman WPtel: [facility] (15 min) Moderate 01/29/2019 Patient Education: Patient [...] concerns. 11/13/2018 Appointment: [phone] [place] (15 min) Moderate [...] call for acute concerns. Hyperlipidemia-check fasting labs Adjppqckfogwlr-qhlbont-xshjm labs 10/30/2018 Visit Plan: Hypertension - uncontrolled [...] call for acute concerns. Hyperlipidemia-check fasting labs Zcwmheidofbqgc-chvqdqz-wrzey labs 10/30/2018 Appointment: Shahida Manzo WPtel: [facility] [phone] (30 min) Complex 10/30/2018 Patient Education: Patient Medication Summary Completed 10/30/2018 Visit Plan: Conjunctivitis - rx for eye drops/lube sent electronically to the patient's pharmacy. The patient has been instructed to cleanse affected eye with warm washcloth, then place medication into affected eye four times daily. 10/08/2018 Appointment: Shahida Manzo WPtel: [facility] [phone] (30 min) Complex 10/08/2018 Patient Education: Patient Medication Summary Completed 10/08/2018 Appointment: Isabelle Orozco WPtel: [facility] [facility] (15 min) Moderate 07/30/2018 Visit Plan: [...] concerns. 07/16/2018 Appointment: Isabelle Orozco WPtel: [phone] [facility] (15 min) Moderate 07/16/2018 Patient Education: [...] over-medication. 07/10/2018 Appointment: Shahida Manzo WPtel: [phone] [phone] (15 min) Moderate 07/10/2018 Patient Education: Patient Medication Summary Completed 07/10/2018 Patient Education: Back Pain Completed 07/10/2018 Visit Plan: Sinusitis - Pt has acute infection - pain in face, maxillary region, Pt informed to use decongestant, RX given to patient, sinus rinses also recommended. Call if symptoms do not show improvement. 05/28/2018 Appointment: Shahida Manzo WPtel: [phone] [phone] (30 min) Complex 05/28/2018 Patient Education: [...] acute concerns. 02/07/2018 Appointment: Isabelle Orozco WPtel: [facility] [facility] (15 min) [facility] 02/07/2018 Patient Education: Patient Medication Summary [...] fatigue 01/19/2018 Appointment: Shahida Manzo WPtel: [phone] [phone] (15 min) Moderate 01/19/2018 Patient Education: Patient [...] surrogate. 11/23/2017 Appointment: Isabel[facility]rozco [facility]Ptel[phone] [facility] - Annual Wellness Visit 11/23/2017 Patient [...] show improvement. 09/12/2017 Appointment: Isabelle Orozco WPtel: [address] [place] [address] (15 min) Moderate 09/12/2017 Patient Education: Patient [...] allergy spray. 07/25/2017 Appointment: Isabelle Orozco WPtel: [address] [place] [address] [place] (30 min) Complex 07/25/2017 Patient Education: Patient [...] are available 06/27/2017 Appointment: Shahida Manzo WPtel: [phone] [phone] (15 min) Moderate 06/27/2017 Patient Education: [...] not improving. 05/08/2017 Appointment: Shahida Manzo WPtel: [phone] (15 min) Moderate 05/08/2017 Patient Education: Patient [...] improvement. 03/14/2017 Appointment: Shahida Manzo WPtel: [phone] [phone] [place] (15 min) Moderate 03/14/2017 Patient Education: Patient Medication Summary Completed 03/14/2017 Appointment: Shahida Manzo WPtel: [phone] [phone] [place] (15 min) Moderate 02/21/2017 Visit [...] not improving. 02/20/2017 Appointment: Isabelle Orozco WPtel: [facility] [facility] [place] (30 min) Complex 02/20/2017 Patient Education: Patient Medication Summary Completed 02/20/2017 Visit Plan: Abdominal pain - liquid diet x 2 days, call on to let me know it if is not better - will prescribe a medication called y Depression - uncontrolled - Pt has been [...] use 02/06/2017 Appointment: Melba Goldman WPtel: [phone] [facility] [place] (15 min) Moderate 02/06/2017 Patient Education: [...] this patient. 12/05/2016 Appointment: Melba Goldman WPtel: [facility] [facility] 12/05/2016 Patient Education: Patient Medication Summary Completed 12/05/2016 Visit Plan: Sinusitis - Pt has acute infection - pain in face, maxillary region, Pt informed to use decongestant, RX given to patient, sinus rinses also recommended. Call if symptoms do not show improvement. Dysuria- culture urine 11/28/2016 Appointment: Shahida Manzo WPtel[phone] (15 min) Moderate 11/28/2016 Patient Education: Patient [...] of control. 11/07/2016 Appointment: Isabelle Orozco WPtel: [facility]0 [place] [phone] [facility] - Annual Wellness Visit 11/07/2016 Patient [...] spray. 08/15/2016 Appointment: Isabelle Orozco WPtel: [phone] [facility] (15 min) Moderate 08/15/2016 Patient Education: Patient [...] pain use. 06/07/2016 Appointment: Shahida Manzo WPtel: [facility] [phone] (10 min) Simple 06/07/2016 Patient Education: [...] office today 03/14/2016 Appointment: Shahida Manzo WPtel: [facility] [phone] (15 min) Moderate 03/14/2016 Patient Education: Patient Medication Summary Completed 03/14/2016 Care Plan: COMPLETE CBC AUTOMATED LOINC : 71038-8 Pending 03/14/2016 Visit Plan: Cellulitis - The patient was instructed in appropriate wound care. The patient was instructed to use the antibiotic ointment as per RX. The patient is to call for any change in symptoms, increase in size of the lesion, increase in pain. 02/22/2016 Appointment: Isabelle Orozco WPtel: [phone] (15 min) Moderate 02/22/2016 [...] pt to follow up with specialist at [place] [address] states - she needs to pursue treatment. Anxietly - medications unchanged. colonoscopy with dr. dai 11/24/2015 Appointment: [facility]ba Goldman [facility]Ptel[phone] (30 min) Complex 11/24/2015 Patient Education: Patient Medication Summary Completed 11/24/2015 Patient Education: Obesity Completed 11/24/2015 Patient Education: Hypertension Completed 11/24/2015 Patient Education: .Cervicalgia Neck Pain Completed 11/24/2015 Care Plan: Referral Order SNOMED-CT : [id number] Ordered 11/24/2015 Visit Plan: Acute Migraine - [...] to monitor 06/11/2015 Appointment: Shahida Manzo WPtel: [phone] [place] (15 min) Moderate 06/11/2015 Patient Education: [...] OFFICE Sleep apnea-patient needs new CPAP-will contact [facility] [place] patient Pt reports that she uses her [...] OFFICE Sleep apnea-patient needs new CPAP-will contact [facility] patient Pt reports that she uses [...] OFFICE Sleep apnea-patient needs new CPAP-will contact [facility] patient 03/19/2015 Appointment: (15 min) Moderate 03/19/2015 [...] Patient Medication Summary Completed 01/07/2015 Patient Education: [facility] - Saving AutoInj - 18+ - Dynamic [...] areas dry Exposure to scabies-RX sent to [facility] pharmacy. 03/07/2014 Appointment: Melba Goldman WPtel: [phone] [place] rash 03/07/2014 Patient Education: Patient Medication [...] change in blood pressure readings at home. Amjwmio-xktrudjjfew-ngfmhbfq duragesic patch-appt with Dr Ortiz for pain management 11/21/2013 Appointment: Shahida Manzo WPtel: [facility] [phone] Follow up 11/21/2013 Patient Education: Patient Medication Summary Completed 11/21/2013 Patient Education: Hypertension Completed 11/21/2013 Patient Education: .Cervicalgia Neck Pain Completed 11/21/2013 Appointment: Melba Goldman WPtel: [facility]5 [facility] Other 11/19/2013 Appointment: Melba Goldman WPtel: [address] [place], [place] [address] Follow up 11/06/2013 Appointment: Melba Goldman WPtel: [facility]5 [facility] Lab Draw 10/15/2013 Patient Education: Patient Medication [...] AT BEDTIME 09/24/2013 Appointment: Shahida Manzo WPtel: [facility] [facility] [place] [address] Other 09/24/2013 Patient Education: Patient Medication Summary Completed 09/24/2013 Visit Plan: Paronychia/Cellulitis - continue with oral antibiotics as previously directed, return to clinic as previously directed, call for acute change in symptoms, worsening redness, warmth, discharge. 09/19/2013 Appointment: Melba Goldman WPtel: [facility]5 [facility] Other 09/19/2013 Patient Education: Patient Medication Summary Completed 09/19/2013 Visit Plan: Conjunctivitis - rx for eye drops/lube sent electronically to the patient's pharmacy. The patient has been instructed to cleanse affected eye with warm washcloth, then place medication into affected eye four times daily. Thrush-refill nystatin-call if symptoms do not resolve 08/05/2013 Appointment: Shahida Manzo WPtel: [facility] [phone] Sick 08/05/2013 Patient Education: Patient Medication Summary [...] show improvement. 06/03/2013 Appointment: Melba Goldman WPtel: [facility]5 [facility] Follow up 06/03/2013 Patient Education: Patient Medication Summary Completed 06/03/2013 Patient Education: Hypertension Completed 06/03/2013 Appointment: Melba Goldman WPtel: [address] [place], [place] [phone] Nurse Visit 05/13/2013 Patient Education: Patient Medication [...] of control. 05/07/2013 Appointment: Melba Goldman WPtel: [facility] Follow up 05/07/2013 Patient Education: Patient Medication Summary Completed 05/07/2013 Patient Education: Hypertension Completed 05/07/2013 Patient Education: Patient Medication Summary Completed 04/30/2013 Patient Education: Hypertension Completed 04/30/2013 Visit Plan: Arthritis- occasionally uncontrolled symptoms- recommend pt to take antiinflammatory as directed for pain control. Use tylenol for break through pain symptoms. 12/03/2012 Appointment: Melba Goldman WPtel: [address] [place], [place] [phone] Follow up 12/03/2012 Patient Education: Patient Medication [...] not resolve 09/24/2012 Appointment: Shahida Manzo WPtel: [address] [place], [place] [phone] [place] [address] 09/24/2012 Patient Education: Patient Medication Summary Completed [...] with diflucan 09/10/2012 Appointment: Melba Goldman WPtel: [facility] Follow up 09/10/2012 Patient Education: Patient Medication [...] symptoms. 08/08/2012 Appointment: Shahida Manzo WPtel: [phone] Follow up 08/08/2012 Patient Education: Patient Medication Summary Completed 08/08/2012 Patient Education: Patient Medication Summary Completed 08/07/2012 Patient Education: Hypertension Completed 08/07/2012 Appointment: Melba Goldman WPtel: [facility] [place] Lab Draw 02/16/2012 Patient Education: Patient [...] labs. 02/15/2012 Appointment: Melba Goldman WPtel: [phone] [facility] Other 02/15/2012 Patient Education: Patient Medication Summary Completed 02/15/2012 Visit Plan: Abdominal pain - ultrasound tomorrow AM nothing to eat before the ultrasound from 11pm tonight bland diet. Nausea - worse with fatty foods, recommended low fat/bland diet, call if symptoms worsening. 11/10/2011 Appointment: Melba Goldman WPtel: [address] [place], [place] [phone] Other 11/10/2011 Patient Education: Patient Medication Summary [...] stools. 08/01/2011 Appointment: Melba Goldman WPtel: [phone] [facility] Other 08/01/2011 Patient Education: Patient Medication Summary Completed 08/01/2011 Patient Education: High Blood Pressure: Essential Hypertension Completed 08/01/2011 Visit Plan: Sinusitis - Pt has acute infection - pain in face, maxillary region, Pt informed to use decongestant, RX given to patient, sinus rinses also recommended. Call if symptoms do not show improvement. Cough- kishore zurita 07/14/2011 Appointment: Shahida Manzo WPtel: [facility]0 [address] Other 07/14/2011 Patient Education: Patient Medication Summary [...] the office. 05/23/2011 Appointment: Shahida Manzo WPtel: [facility]9 [address] Other 05/23/2011 Patient Education: Patient Medication Summary [...] cough med 05/03/2011 Appointment: Shahida Manzo WPtel: [facility]3 [place] [phone] [place] Other 05/03/2011 Patient Education: Patient Medication Summary Completed 05/03/2011 Visit Plan: Hypertension - fairlywell controlled - due to extreme fatigue i have instructed Eccelia to stop the toprol and start bystolic [...] her symptoms. 04/25/2011 Appointment: Shahida Manzo WPtel: [address] [place] [phone] Other 04/25/2011 Patient Education: Patient Medication Summary [...] OFFICE Sleep apnea-patient needs new CPAP-will contact [facility] [place] patient Pt reports that she uses her [...] OFFICE Sleep apnea-patient needs new CPAP-will contact [facility] [place] patient Pt reports that she uses her [...] OFFICE Sleep apnea-patient needs new CPAP-will contact [facility] home patient LOSARTAN 50MG DAILY MONITOR BLOOD [...] call for acute concerns. Hyperlipidemia-check fasting labs Nvkhbybvidpjzq-pdwurqe-ijrmv labs LOSARTAN 50MG DAILY MONITOR BLOOD PRESSURE [...] call for acute concerns. Hyperlipidemia-check fasting labs Mxpskdytmavnsi-vhrcvli-rurjc labs . Sinusitis - Pt has acute [...] nystatin-call if symptoms do not resolve . UTI - pt with positive urinalysis [...] not show improvement. Gentamicin nasal spray to [facility] Increase prilosec to twice daily . [...] areas dry Exposure to scabies-RX sent to [facility] pharmacy. rocephin/kenalog . Sinusitis - [...] change in blood pressure readings at home. Datfxyu-raqppjgvduu-fvfgolwt duragesic patch-appt with Dr Ortiz for pain [...]
[2019-03-08 10:40] VITALS: BP 140/61
--- NOTE | 2019-03-08 10:41 | Anesthesia-General Post-Op ---
MAC Patient Condition Mental Status/LOC: Same as Preop Cardiovascular: Satisfactory Nausea/Vomiting: Absent Respiratory: Satisfactory Pain: Controlled Complications: Absent Post Op Complications Complications None Follow Up Care/Instructions Patient Instructions None needed. Anesthesiology Discharge Order Discharge Order Patient is doing well, no complaints, stable vital signs, no apparent adverse anesthesia problems. No complications reported per nursing. ELICIA MOFFETT CRNA Mar 08, 2019 10:41
[2019-03-08 10:55] VITALS: BP 140/61
--- OUTSIDE RECORDS SUMMARY | 2019-03-08 11:27 | XMS REPORT | CCD ---
Author Author [facility] Address [address] [place] [address] Phone Care Team Providers Care Educational Diagnostician Name Role Phone PP Unavailable CCM Unavailable Summary Purpose Interface Exchange Insurance Providers Payer name Policy type / Coverage type Covered libertarian ID Effective Begin Date Effective End Date [employer] Solutions Medicare Part B [id number] Unknown Family history Son Diagnosis Age At Onset Crohn's disease Unknown Brother Diagnosis Age At Onset Cardiovascular disease Unknown Mother Diagnosis Age At Onset Hypertension Unknown Father Diagnosis Age At Onset Cardiovascular disease Unknown Social History Social History Element Codes Description Effective Dates Marital status Unknown 04/22/2011 Number of children Unknown 3 1 son -Crohns 04/22/[address]: 572179138 Nonsmoker 04/22/2011 Allergies, Adverse Reactions, Alerts Substance [...] Start Date Stop Date Status Fill Instructions hydrochlorothiazide 25 mg tablet RxNorm: 784974 Tablet(s) TAKE ONE TABLET BY MOUTH DAILY 01/29/2019 10/25/2019 Active hydrocodone 10 mg-acetaminophen 325 mg tablet RxNorm: 336021 Tablet(s) PO TAKE ONE TO TWO TABLETS BY MOUTH EVERY 6 HOURS NEEDED FOR PAIN 01/17/2019 01/31/2019 Active trazodone 50 mg tablet RxNorm: 748507 TAKE ONE AND ONE-HALF (1 1/2) TABLETS BY MOUTH AT BEDTIME. MAY INCREASE TO 2 TABLETS AT BEDTIME NEEDED 12/13/2018 04/01/2019 Active losartan 100 mg tablet RxNorm: 177369 1 Tablet(s) PO daily 11/13/2018 05/11/2019 Active hydrocodone 10 mg-acetaminophen 325 mg tablet RxNorm: 311479 Tablet(s) PO TAKE ONE TO TWO TABLETS BY MOUTH EVERY 6 HOURS NEEDED FOR PAIN 11/13/2018 11/27/2018 Inactive Synthroid 112 mcg tablet RxNorm: 568934 1 Tablet(s) PO daily 11/01/2018 04/29/2019 Active Brand name only! Dosage change! Synthroid 112 mcg tablet RxNorm: 303465 1 Tablet(s) PO daily 11/01/2018 10/31/2018 Inactive Brand name only! Dosage change! losartan 50 mg tablet RxNorm: 943743 1 Tablet(s) PO daily 10/30/2018 11/12/2018 Inactive Tamiflu 75 mg capsule RxNorm: 715861 1 Capsule(s) PO daily 10/30/2018 11/08/2018 Inactive Synthroid 100 mcg tablet RxNorm: 435781 1 Tablet(s) PO daily 10/30/2018 10/31/2018 Inactive Brand name only! Lexapro 20 mg tablet RxNorm: 216680 TAKE ONE AND ONE-HALF TABLET BY MOUTH DAILY 10/23/2018 10/17/2019 Active alprazolam 0.25 mg tablet RxNorm: 529819 1 Tablet(s) PO TID as needed 10/10/2018 01/07/2019 Inactive polymyxin B sulfate 10,000 unit-trimethoprim 1 mg/mL eye drops RxNorm: 645085 2 Drop(s) ophthalmic (eye) QID 10/08/2018 10/14/2018 Inactive hydrocodone 10 mg-acetaminophen 325 mg tablet RxNorm: 914605 Tablet(s) PO TAKE ONE TO TWO TABLETS BY MOUTH EVERY 6 HOURS NEEDED FOR PAIN 09/11/2018 09/25/2018 Inactive piroxicam 20 mg capsule RxNorm: 066808 TAKE ONE CAPSULE BY MOUTH DAILY 08/09/2018 01/05/2019 Inactive trazodone 50 mg tablet RxNorm: 841757 TAKE ONE AND ONE-HALF (1 1/2) TABLET BY MOUTH AT BEDTIME. MAY INCREASE TO 2 TABLETS AT BEDTIME NEEDED 08/02/2018 11/19/2018 Inactive Nexium 40 mg capsule,delayed release RxNorm: 957264 TAKE ONE CAPSULE BY MOUTH TWICE A DAY 07/23/2018 11/19/2018 Inactive Bystolic 5 mg tablet RxNorm: 978552 1 Tablet(s) PO daily to take with 10 mg daily to equal 15mg daily 07/17/2018 10/29/2018 Inactive alprazolam 0.25 mg tablet RxNorm: 266209 1 Tablet(s) PO TID as needed 07/16/2018 10/29/2018 Inactive hydrocodone 10 mg-acetaminophen 325 mg tablet RxNorm: 617853 Tablet(s) PO TAKE ONE TO TWO TABLETS BY MOUTH EVERY 6 HOURS NEEDED FOR PAIN 07/10/2018 07/24/2018 Inactive prednisone 20 mg tablet RxNorm: 952731 1 Tablet(s) PO BID 07/10/2018 07/14/2018 Inactive Phenergan with Codeine Syrup RxNorm: 5-10 Milliliter(s) PO Q6 PRN 06/28/2018 01/28/2019 Inactive prednisone 20 mg tablet RxNorm: 273662 2 Tablet(s) PO daily 05/31/2018 06/04/2018 Inactive prednisone 20 mg tablet RxNorm: 632917 2 Tablet(s) PO daily 05/31/2018 05/30/2018 Inactive ceftriaxone 500 mg solution for injection RxNorm: 5648777 Inj 05/28/2018 05/28/2018 Inactive doxycycline hyclate 100 mg tablet RxNorm: 9061026 1 Tablet(s) PO BID 05/28/2018 06/06/2018 Inactive Kenalog 40 mg/mL suspension for injection RxNorm: 1599490 Milliliter(s) Inj 05/28/2018 05/28/2018 Inactive hydrocodone 10 mg-acetaminophen 325 mg tablet RxNorm: 863143 Tablet(s) PO TAKE ONE TO TWO TABLETS BY MOUTH EVERY 6 HOURS NEEDED FOR PAIN 05/09/2018 05/23/2018 Inactive alprazolam 0.25 mg tablet RxNorm: 486190 1 Tablet(s) PO daily as needed 04/25/2018 07/15/2018 Inactive Bystolic 10 mg tablet RxNorm: 707788 TAKE ONE TABLET BY MOUTH DAILY 04/16/2018 09/12/2018 Inactive hydrocodone 10 mg-acetaminophen 325 mg tablet RxNorm: 914028 Tablet(s) PO TAKE ONE TO TWO TABLETS BY MOUTH EVERY 6 HOURS NEEDED FOR PAIN 03/06/2018 03/20/2018 Inactive trazodone 50 mg tablet RxNorm: 886290 TAKE ONE AND ONE-HALF (1 1/2) TABLET BY MOUTH AT BEDTIME. MAY INCREASE TO 2 TABLETS AT BEDTIME NEEDED 02/23/2018 06/12/2018 Inactive mupirocin 2 % topical ointment RxNorm: 769227 1 TOP BID 02/09/2018 05/27/2018 Inactive Zofran 4 mg tablet RxNorm: 446130 1 Tablet(s) PO TID as needed 02/08/2018 No Stop Date Active Keflex 500 mg capsule RxNorm: 423782 1 Capsule(s) PO TID 02/07/2018 02/13/2018 Inactive alprazolam 0.25 mg tablet RxNorm: 512755 1 Tablet(s) PO daily as needed 01/24/2018 07/09/2018 Inactive hydrocodone 10 mg-acetaminophen 325 mg tablet RxNorm: 993518 Tablet(s) PO TAKE ONE TO TWO TABLETS BY MOUTH EVERY 6 HOURS NEEDED FOR PAIN 01/19/2018 02/02/2018 Inactive hydrochlorothiazide 25 mg tablet RxNorm: 582517 Tablet(s) TAKE ONE TABLET BY MOUTH DAILY 01/19/2018 01/19/2018 Inactive Kenalog 40 mg/mL suspension for injection RxNorm: 3201741 1 Milliliter(s) Inj 01/19/2018 01/19/2018 Inactive piroxicam 20 mg capsule RxNorm: 523858 1 Capsule(s) PO daily 01/19/2018 07/17/2018 Inactive D/C ORDER FOR HCTZ ceftriaxone 500 mg solution for injection RxNorm: 2527625 500 Milligram(s) Inj 01/19/2018 01/19/2018 Inactive Nexium 40 mg capsule,delayed release RxNorm: 778817 TAKE ONE CAPSULE BY MOUTH TWICE A DAY 01/18/2018 04/17/2018 Inactive Nexium 40 mg capsule,delayed release RxNorm: 108107 TAKE ONE CAPSULE BY MOUTH TWICE A DAY 01/15/2018 04/14/2018 Inactive ciprofloxacin 0.3 % eye drops RxNorm: 722705 2 Drop(s) ophthalmic (eye) Q2H while awake x 2 days, then Q4H x 5 days 11/23/2017 05/27/2018 Inactive Keflex 500 mg capsule RxNorm: 935228 1 Capsule(s) PO TID 11/23/2017 11/29/2017 Inactive hydrocodone 10 mg-acetaminophen 325 mg tablet RxNorm: 637249 Tablet(s) PO TAKE ONE TO TWO TABLETS BY MOUTH EVERY 6 HOURS NEEDED FOR PAIN 10/30/2017 11/13/2017 Inactive Augmentin 500 mg-125 mg tablet RxNorm: 198431 1 Tablet(s) PO TID 10/27/2017 11/05/2017 Inactive alprazolam 0.25 mg tablet RxNorm: 022827 1 Tablet(s) PO daily as needed 10/26/2017 04/24/2018 Inactive trazodone 50 mg tablet RxNorm: 902768 TAKE ONE AND ONE-HALF (1 1/2) TABLET BY MOUTH AT BEDTIME. MAY INCREASE TO 2 TABLETS AT BEDTIME NEEDED 09/25/2017 02/03/2018 Inactive Lexapro 20 mg tablet RxNorm: 141395 TAKE ONE AND ONE-HALF TABLET BY MOUTH DAILY 09/15/2017 09/09/2018 Inactive Flagyl 500 mg tablet RxNorm: 456355 1 Tablet(s) PO TID 09/12/2017 09/21/2017 Inactive promethazine 25 mg tablet RxNorm: 565566 1 Tablet(s) PO TID as needed nausea and vomitting THIS WILL MAKE YOU SLEEPY 09/12/2017 11/08/2017 Inactive Keflex 500 mg capsule RxNorm: 146846 1 Capsule(s) PO QID 08/25/2017 08/31/2017 Inactive [SAVINGS FOR UNINSURED PATIENTS -- BIN:[id number], PCN: [id number], Group: [facility], ID# [id number], Process claim through [employer], for questions: . THIS IS NOT INSURANCE.] alprazolam 0.25 mg tablet RxNorm: 482958 1 Tablet(s) PO daily as needed 07/31/2017 04/24/2018 Inactive prednisone 20 mg tablet RxNorm: 445103 2 Tablet(s) PO daily 07/25/2017 07/29/2017 Inactive Augmentin 500 mg-125 mg tablet RxNorm: 134851 1 Tablet(s) PO TID 07/25/2017 08/03/2017 Inactive trazodone 50 mg tablet RxNorm: 011430 TAKE ONE AND ONE-HALF (1 1/2) TABLET BY MOUTH AT BEDTIME. MAY INCREASE TO 2 TABLETS AT BEDTIME NEEDED 06/30/2017 09/03/2017 Inactive Bystolic 10 mg tablet RxNorm: 640432 TAKE ONE TABLET BY MOUTH DAILY 06/30/2017 2017 Inactive hydrochlorothiazide 25 mg tablet RxNorm: 228359 TAKE ONE TABLET BY MOUTH DAILY 06/30/2017 01/18/2018 Inactive Flagyl 500 mg tablet RxNorm: 132258 1 Tablet(s) PO TID 06/27/2017 07/03/2017 Inactive Phenergan with Codeine Syrup RxNorm: 5-10 Milliliter(s) PO Q6 PRN 06/27/2017 11/15/2017 Inactive Levaquin 500 mg tablet RxNorm: 855369 1 Tablet(s) PO daily 06/27/2017 07/03/2017 Inactive Kenalog 40 mg/mL suspension for injection RxNorm: 3433331 1 Milliliter(s) Inj 06/27/2017 06/27/2017 Inactive Nexium 40 mg capsule,delayed release RxNorm: 975630 1 Capsule(s) PO BID TAKE ONE CAPSULE BY MOUTH BID 05/22/2017 09/18/2017 Inactive Nexium 40 mg capsule,delayed release RxNorm: 566786 1 Capsule(s) PO BID TAKE ONE CAPSULE BY MOUTH BID 05/22/2017 05/21/2017 Inactive hydrocodone 10 mg-acetaminophen 325 mg tablet RxNorm: 170810 Tablet(s) PO TAKE ONE TO TWO TABLETS BY MOUTH EVERY 6 HOURS NEEDED FOR PAIN 05/17/2017 06/15/2017 Inactive Nexium 40 mg capsule,delayed release RxNorm: 804594 Capsule(s) TAKE ONE CAPSULE BY MOUTH BID 05/17/2017 05/21/2017 Inactive alprazolam 0.25 mg tablet RxNorm: 796510 1 Tablet(s) PO daily as needed 05/03/2017 07/01/2017 Inactive Levaquin 500 mg tablet RxNorm: 527613 1 Tablet(s) PO daily 04/20/2017 04/26/2017 Inactive clotrimazole 1 % topical cream RxNorm: 112906 1 Application TOP BID 04/20/2017 11/07/2017 Inactive Kenalog 40 mg/mL suspension for injection RxNorm: 4026586 Milliliter(s) Inj 04/20/2017 04/20/2017 Inactive nystatin 100,000 unit/gram topical powder RxNorm: 952067 1 Gram(s) APPLY TOPICALLY TWO TIMES A DAY 04/10/2017 07/08/2017 Inactive trazodone 50 mg tablet RxNorm: 108831 TAKE ONE AND ONE-HALF (1 1/2) TABLET BY MOUTH AT BEDTIME. MAY INCREASE TO 2 TABLETS AT BEDTIME NEEDED 03/28/2017 06/23/2017 Inactive Augmentin 875 mg-125 mg tablet RxNorm: 449661 1 Tablet(s) PO BID 03/14/2017 03/20/2017 Inactive Kenalog 40 mg/mL suspension for injection RxNorm: 6703512 1 Milliliter(s) Inj 03/14/2017 03/14/2017 Inactive Lexapro 20 mg tablet RxNorm: 163987 1.5 Tablet(s) PO daily 03/08/2017 03/07/2017 Inactive Lexapro 20 mg tablet RxNorm: 459931 1.5 Tablet(s) PO daily 03/08/2017 07/05/2017 Inactive alprazolam 0.25 mg tablet RxNorm: 398680 1 Tablet(s) PO daily as needed 02/23/2017 04/23/2017 Inactive (Response to an electronic controlled substance refill request - RxReferenceNumber: [id number]) Flagyl 500 mg tablet RxNorm: 541014 1 Tablet(s) PO TID 02/20/2017 03/01/2017 Inactive promethazine 25 mg tablet RxNorm: 144387 1 Tablet(s) PO TID as needed nausea 02/20/2017 03/01/2017 Inactive Cipro 500 mg tablet RxNorm: 345567 1 Tablet(s) PO BID 02/20/2017 03/01/2017 Inactive Flagyl 500 mg tablet RxNorm: 381465 1 Tablet(s) PO TID 02/09/2017 02/15/2017 Inactive Trintellix 10 mg tablet RxNorm: 0045878 1 Tablet(s) PO QAM 02/06/2017 03/07/2017 Inactive Efudex 5 % topical cream RxNorm: 673891 1 Application TOP BID use on skin spot on nose 02/06/2017 02/15/2017 Inactive Bystolic 10 mg tablet RxNorm: 951967 TAKE ONE TABLET BY MOUTH DAILY 02/03/2017 06/02/2017 Inactive Imitrex 50 mg tablet RxNorm: 330961 TAKE ONE TABLET BY MOUTH EVERY 8 HOURS NEEDED MAY REPEAT IN 1 HOUR OF INITIAL DOSE. DISCONTINUE FIORICET 12/22/2016 02/19/2017 Inactive Nexium 40 mg capsule,delayed release RxNorm: 091920 TAKE ONE CAPSULE BY MOUTH EVERY DAY 12/21/2016 05/16/2017 Inactive Lexapro 20 mg tablet RxNorm: 519102 Tablet(s) TAKE ONE TABLET BY MOUTH DAILY 12/05/2016 02/05/2017 Inactive Augmentin 875 mg-125 mg tablet RxNorm: 570202 1 Tablet(s) PO BID 11/28/2016 12/04/2016 Inactive ceftriaxone 500 mg solution for injection RxNorm: 5656227 1 Milliliter(s) Inj 11/28/2016 11/28/2016 Inactive hydrocodone 10 mg-acetaminophen 325 mg tablet RxNorm: 615230 Tablet(s) PO TAKE ONE TO TWO TABLETS BY MOUTH EVERY 6 HOURS NEEDED FOR PAIN 11/28/2016 05/16/2017 Inactive (Appended: Controlled substance eRx refill - RxReferenceNumber: [id number]) prednisone 20 mg tablet RxNorm: 107906 2 Tablet(s) PO daily 11/28/2016 12/02/2016 Inactive trazodone 50 mg tablet RxNorm: 674604 Tablet(s) TAKE 1 AND 1/2 TABLETS EVERY NIGHT AT BEDTIME , MAY INCREASE TO 2 TABLETS AT BEDTIME NEEDED 11/21/2016 11/20/2016 Inactive Synthroid 100 mcg tablet RxNorm: 309217 1 Tablet(s) PO daily 11/21/2016 05/19/2017 Inactive Brand name only! trazodone 50 mg tablet RxNorm: 460649 TAKE 1 AND 1/2 TABLETS EVERY NIGHT AT BEDTIME , MAY INCREASE TO 2 TABLETS AT BEDTIME NEEDED 11/21/2016 08/01/2018 Inactive Synthroid 100 mcg tablet RxNorm: 287211 1 Tablet(s) PO daily TAKE ONE TABLET BY MOUTH DAILY 11/08/2016 11/20/2016 Inactive ceftriaxone 500 mg solution for injection RxNorm: 9677773 Inj 11/07/2016 11/07/2016 Inactive Kenalog 40 mg/mL suspension for injection RxNorm: 3275297 Milliliter(s) Inj 11/07/2016 11/07/2016 Inactive Xanax 0.25 mg tablet RxNorm: 905133 1 Tablet(s) PO daily as needed 10/31/2016 05/02/2017 Inactive alprazolam 0.25 mg tablet RxNorm: 813547 1 Tablet(s) PO daily as needed 10/21/2016 12/18/2016 Inactive (Response to an electronic controlled substance refill request - RxReferenceNumber: [id number]) hydrochlorothiazide 25 mg tablet RxNorm: 646164 TAKE ONE TABLET BY MOUTH DAILY 10/11/2016 04/08/2017 Inactive Xanax 0.25 mg tablet RxNorm: 569324 1 Tablet(s) PO daily as needed 08/23/2016 10/19/2016 Inactive Flonase Allergy Relief 50 mcg/actuation nasal spray,suspension RxNorm: 2908924 1 [place] NASAL daily 08/15/2016 No Stop Date Active amoxicillin 500 mg capsule RxNorm: 935612 1 Capsule(s) PO TID 08/15/2016 08/24/2016 Inactive Bystolic 10 mg tablet RxNorm: 660918 TAKE ONE TABLET BY MOUTH DAILY 08/01/2016 12/28/2016 Inactive trazodone 50 mg tablet RxNorm: 736552 TAKE 1 AND 1/2 TABLETS EVERY NIGHT AT BEDTIME , MAY INCREASE TO 2 TABLETS AT BEDTIME NEEDED 07/25/2016 11/11/2016 Inactive alprazolam 0.25 mg tablet RxNorm: 789038 1 Tablet(s) PO daily as needed 07/25/2016 08/22/2016 Inactive (Response to an electronic controlled substance refill request - RxReferenceNumber: [id number]) Imitrex 50 mg tablet RxNorm: 504309 1 Tablet(s) PO Q8 as needed may repeat x1 dose in 1 hour of inital dose. 07/13/2016 No Stop Date Active Lexapro 20 mg tablet RxNorm: 858261 TAKE 1/2 TABLET BY MOUTH DAILY FOR 10 DAYS, THEN TAKE ONE TABLET BY MOUTH DAILY 06/27/2016 11/23/2016 Inactive Synthroid 100 mcg tablet RxNorm: 098793 TAKE ONE TABLET BY MOUTH DAILY 06/20/2016 11/07/2016 Inactive Augmentin 500 mg-125 mg tablet RxNorm: 304024 1 Tablet(s) PO TID 06/07/2016 06/13/2016 Inactive hydrocodone 10 mg-acetaminophen 325 mg tablet RxNorm: 458053 Tablet(s) PO TAKE ONE TO TWO TABLETS BY MOUTH EVERY 6 HOURS NEEDED FOR PAIN 06/07/2016 11/27/2016 Inactive (Appended: Controlled substance eRx refill - RxReferenceNumber: [id number]) hydrochlorothiazide 25 mg tablet RxNorm: 833504 TAKE ONE TABLET BY MOUTH DAILY 03/14/2016 09/09/2016 Inactive Edarbi 40 mg tablet RxNorm: 0754265 1 Tablet(s) PO daily 03/14/2016 06/06/2016 Inactive trazodone 50 mg tablet RxNorm: 261609 Tablet(s) TAKE 1 AND 1/2 TABLET AT BEDTIME. MAY INCREASE TO 2 TABLETS IF NECESSARY 02/25/2016 07/05/2016 Inactive Imitrex 50 mg tablet RxNorm: 592030 1 Tablet(s) PO Q8 as needed may repeat x1 dose in 1 hour of inital dose. 02/25/2016 07/12/2016 Inactive dc fioricet Xanax 0.25 mg tablet RxNorm: 953829 1 Tablet(s) PO daily as needed 02/24/2016 07/21/2016 Inactive mupirocin 2 % topical ointment RxNorm: 331531 1 TOP BID 02/22/2016 11/08/2017 Inactive Bactrim DS 800 mg-160 mg tablet RxNorm: 836246 1 Tablet(s) PO BID 02/22/2016 03/02/2016 Inactive Fioricet 50 mg-325 mg-40 mg tablet RxNorm: 193059 Tablet(s) TAKE ONE TABLET BY MOUTH EVERY 4 HOURS NEEDED FOR headache 02/12/2016 02/24/2016 Inactive (Response to an electronic controlled substance refill request - RxReferenceNumber: [id number]) Fioricet 50 mg-325 mg-40 mg tablet RxNorm: 022014 Tablet(s) TAKE ONE TABLET BY MOUTH EVERY 4 HOURS NEEDED FOR headache 02/12/2016 02/11/2016 Inactive (Response to an electronic controlled substance refill request - RxReferenceNumber: [id number]) Nexium 40 mg capsule,delayed release RxNorm: 583525 TAKE ONE CAPSULE BY MOUTH EVERY DAY 02/01/2016 10/27/2016 Inactive Bystolic 10 mg tablet RxNorm: 797696 Tablet(s) TAKE ONE TABLET BY MOUTH DAILY 01/06/2016 07/03/2016 Inactive Xanax 0.25 mg tablet RxNorm: 437326 1 Tablet(s) PO daily as needed 12/28/2015 02/23/2016 Inactive Levaquin 500 mg tablet RxNorm: 598341 1 Tablet(s) PO daily take a probiotic daily 12/14/2015 02/11/2016 Inactive Levaquin 500 mg tablet RxNorm: 140008 1 Tablet(s) PO daily take a probiotic daily 12/14/2015 12/13/2015 Inactive prednisone 20 mg tablet RxNorm: 387064 1 Tablet(s) PO BID 12/07/2015 12/13/2015 Inactive Augmentin 875 mg-125 mg tablet RxNorm: 278955 1 Tablet(s) PO BID 12/07/2015 12/13/2015 Inactive ceftriaxone 500 mg solution for injection RxNorm: 3448398 Inj 12/07/2015 12/07/2015 Inactive Phenergan with Codeine Syrup RxNorm: 5-10 Milliliter(s) PO Q6 PRN 12/07/2015 06/26/2017 Inactive alprazolam 0.25 mg tablet RxNorm: 197453 1 Tablet(s) PO daily as needed 11/27/2015 12/25/2015 Inactive (Response to an electronic controlled substance refill request - RxReferenceNumber: [id number]) trazodone 50 mg tablet RxNorm: 796575 TAKE 1 AND 1/2 TABLET AT BEDTIME FOR 2 WEEKS, MAY INCREASE TO 2 TABLETS IF NECESSARY AFTER THAT 11/26/2015 02/24/2016 Inactive ceftriaxone 500 mg solution for injection RxNorm: 4956506 Milliliter(s) Inj 11/24/2015 11/24/2015 Inactive prednisone 10 mg tablet RxNorm: 105350 3 Tablet(s) PO daily 11/24/2015 11/28/2015 Inactive cefdinir 300 mg capsule RxNorm: 617177 1 Capsule(s) PO BID 11/24/2015 11/30/2015 Inactive Kenalog 40 mg/mL suspension for injection RxNorm: 1948948 1 Milliliter(s) Inj 11/24/2015 11/24/2015 Inactive Lexapro 20 mg tablet RxNorm: 136855 TAKE 1/2 TABLET BY MOUTH DAILY FOR 10 DAYS, THEN TAKE ONE TABLET BY MOUTH DAILY 11/23/2015 05/20/2016 Inactive Lipitor 10 mg tablet RxNorm: 278961 Tablet(s) TAKE ONE TABLET BY MOUTH EVERY DAY 10/26/2015 11/06/2016 Inactive Norvasc 10 mg tablet RxNorm: 958177 Tablet(s) PO TAKE ONE TABLET BY MOUTH EVERY DAY 10/26/2015 01/18/2018 Inactive hydrochlorothiazide 25 mg tablet RxNorm: 800328 TAKE ONE TABLET BY MOUTH DAILY 10/20/2015 01/17/2016 Inactive promethazine 25 mg/mL injection solution RxNorm: 050817 Milliliter(s) Inj 08/27/2015 08/27/2015 Inactive ketorolac 60 mg/2 mL intramuscular solution RxNorm: 546856 Milliliter(s) IM 08/27/2015 08/27/2015 Inactive alprazolam 0.25 mg tablet RxNorm: 146396 1 Tablet(s) PO daily as needed 08/27/2015 10/25/2017 Inactive (Response to an electronic controlled substance refill request - RxReferenceNumber: [id number]) Lexapro 20 mg tablet RxNorm: 595769 TAKE 1/2 TABLET BY MOUTH DAILY FOR 10 DAYS, THEN TAKE ONE TABLET BY MOUTH DAILY 08/13/2015 11/10/2015 Inactive Flonase 50 mcg/actuation nasal spray,suspension RxNorm: 290775 PLACE 1 SPRAY IN EACH NOSTRIL DAILY 08/13/2015 02/08/2016 Inactive Augmentin 500 mg-125 mg tablet RxNorm: 395091 1 Tablet(s) PO TID 08/10/2015 08/16/2015 Inactive Kenalog 40 mg/mL suspension for injection RxNorm: 6721457 Milliliter(s) Inj 08/10/2015 08/10/2015 Inactive ceftriaxone 500 mg solution for injection RxNorm: 9749311 Inj 08/10/2015 08/10/2015 Inactive nystatin 100,000 unit/mL oral suspension RxNorm: 614816 4 Milliliter(s) PO QID 08/10/2015 08/16/2015 Inactive trazodone 50 mg tablet RxNorm: 875583 TAKE 1 AND 1/2 TABLET AT BEDTIME FOR 2 WEEKS, MAY INCREASE TO 2 TABLETS IF NECESSARY AFTER THAT 07/31/2015 11/25/2015 Inactive ceftriaxone 500 mg solution for injection RxNorm: 7028307 1 Milliliter(s) Inj 07/28/2015 07/28/2015 Inactive Bactrim DS 800 mg-160 mg tablet RxNorm: 467870 1 Tablet(s) PO BID 07/28/2015 08/06/2015 Inactive Bactroban 2 % topical ointment RxNorm: 669668 1 Application TOP BID 07/28/2015 08/06/2015 Inactive Diflucan 150 mg tablet RxNorm: 179114 1 Tablet(s) PO daily 06/11/2015 06/17/2015 Inactive clotrimazole 1 % topical cream RxNorm: 205779 1 Application TOP BID 06/11/2015 07/10/2015 Inactive Bystolic 10 mg tablet RxNorm: 141192 TAKE ONE TABLET BY MOUTH DAILY 06/08/2015 12/04/2015 Inactive alprazolam 0.25 mg tablet RxNorm: 873252 1 Tablet(s) PO daily as needed 06/01/2015 08/25/2015 Inactive (Response to an electronic controlled substance refill request - RxReferenceNumber: [id number]) Fioricet 50 mg-325 mg-40 mg tablet RxNorm: 407001 Tablet(s) TAKE ONE TABLET BY MOUTH EVERY 4 HOURS NEEDED FOR headache 05/28/2015 06/08/2015 Inactive (Response to an electronic controlled substance refill request - RxReferenceNumber: [id number]) trazodone 50 mg tablet RxNorm: 231297 TAKE 1 AND 1/2 TABLET AT BEDTIME FOR 2 WEEKS, MAY INCREASE TO 2 TABLETS IF NECESSARY AFTER THAT 05/25/2015 08/22/2015 Inactive trazodone 50 mg tablet RxNorm: 697214 TAKE 1 AND 1/2 TABLET AT BEDTIME FOR 2 WEEKS, MAY INCREASE TO 2 TABLETS IF NECESSARY AFTER THAT 05/25/2015 05/24/2015 Inactive Synthroid 100 mcg tablet RxNorm: 093846 TAKE ONE TABLET BY MOUTH DAILY 04/23/2015 01/17/2016 Inactive Lipitor 10 mg tablet RxNorm: 905158 TAKE ONE TABLET BY MOUTH EVERY DAY 04/23/2015 10/25/2015 Inactive Kenalog 40 mg/mL suspension for injection RxNorm: 9743701 Milliliter(s) Inj 03/19/2015 03/19/2015 Inactive Lexapro 20 mg tablet RxNorm: 656650 1 Tablet(s) PO daily 03/19/2015 07/16/2015 Inactive 1/2 tab daily x 10 days then 1 tab daily hydrocodone 10 mg-acetaminophen 325 mg tablet RxNorm: 021645 Tablet(s) PO TAKE ONE TO TWO TABLETS BY MOUTH EVERY 6 HOURS NEEDED FOR PAIN 03/19/2015 06/06/2016 Inactive (Appended: Controlled substance eRx refill - RxReferenceNumber: [id number]) Carafate 1 gram tablet RxNorm: 809305 1 Tablet(s) PO AC & HS 03/19/2015 06/16/2015 Inactive dissolve in water and take as a slurry hydrochlorothiazide 25 mg tablet RxNorm: 458918 1 Tablet(s) PO daily 03/12/2015 09/07/2015 Inactive Nexium 40 mg capsule,delayed release RxNorm: 962014 TAKE ONE CAPSULE BY MOUTH EVERY DAY 02/26/2015 12/22/2015 Inactive Cymbalta 60 mg capsule,delayed release RxNorm: 357497 TAKE ONE CAPSULE BY MOUTH TWICE A DAY 02/23/2015 03/18/2015 Inactive alprazolam 0.25 mg tablet RxNorm: 631961 1 Tablet(s) PO daily as needed 02/11/2015 05/10/2015 Inactive (Response to an electronic controlled substance refill request - RxReferenceNumber: [id number]) trazodone 50 mg tablet RxNorm: 837486 TAKE 1 AND 1/2 TABLET AT BEDTIME FOR 2 WEEKS, MAY INCREASE TO 2 TABLETS IF NECESSARY AFTER THAT 01/27/2015 05/24/2015 Inactive Augmentin 500 mg-125 mg tablet RxNorm: 339862 1 Tablet(s) PO TID 01/07/2015 01/13/2015 Inactive gentamicin 0.3 % eye drops RxNorm: 389101 3 Drop(s) OPH QID 01/07/2015 01/13/2015 Inactive [AttnRPh: Saving apply/adjudicate RxGRP:[id number] RxBIN:[id number] RxPCN: ID#:[id number]] scopolamine 1.5 mg transdermal 72 hour patch RxNorm: 215789 1 Patch TD q72 hours 01/07/2015 11/23/2015 Inactive Synthroid 100 mcg tablet RxNorm: 872809 TAKE ONE TABLET BY MOUTH ONCE A DAY 01/06/2015 04/22/2015 Inactive nystatin 100,000 unit/gram topical powder RxNorm: 677517 APPLY TOPICALLY TWO TIMES A DAY 12/18/2014 03/17/2015 Inactive alprazolam 0.25 mg tablet RxNorm: 125148 TAKE ONE TABLET BY MOUTH DAILY NEEDED 10/30/2014 11/28/2014 Inactive (Response to an electronic controlled substance refill request - RxReferenceNumber: [id number]) alprazolam 0.25 mg tablet RxNorm: 985026 Tablet(s) TAKE ONE TABLET BY MOUTH DAILY 10/30/2014 10/29/2014 Inactive (Response to an electronic controlled substance refill request - RxReferenceNumber: [id number]) Lipitor 10 mg tablet RxNorm: 492203 TAKE ONE TABLET BY MOUTH EVERY DAY 10/30/2014 02/26/2015 Inactive alprazolam 0.25 mg tablet RxNorm: 296437 TAKE ONE TABLET BY MOUTH DAILY 10/07/2014 10/29/2014 Inactive (Response to an electronic controlled substance refill request - RxReferenceNumber: [id number]) alprazolam 0.25 mg tablet RxNorm: 965722 TAKE ONE TABLET BY MOUTH DAILY 10/06/2014 10/07/2014 Inactive (Response to an electronic controlled substance refill request - RxReferenceNumber: [id number]) alprazolam 0.25 mg tablet RxNorm: 870737 Tablet(s) TAKE ONE TABLET BY MOUTH EVERY DAY NEEDED 09/30/2014 10/06/2014 Inactive (Response to an electronic controlled substance refill request - RxReferenceNumber: [id number]) Fioricet 50 mg-325 mg-40 mg tablet RxNorm: 594361 Tablet(s) TAKE ONE TABLET BY MOUTH EVERY 4 HOURS NEEDED FOR headache 09/29/2014 10/12/2014 Inactive (Response to an electronic controlled substance refill request - RxReferenceNumber: [id number]) Bystolic 10 mg tablet RxNorm: 515335 1 Tablet(s) PO daily TAKE ONE TABLET BY MOUTH EVERY DAY 09/29/2014 04/26/2015 Inactive Bystolic 5 mg tablet RxNorm: 436074 TAKE 1 AND 1/2 TABLETS ONCE DAILY 09/24/2014 09/23/2014 Inactive Bystolic 5 mg tablet RxNorm: 356607 Tablet(s) TAKE 1 AND 1/2 TABLETS ONCE DAILY 09/24/2014 09/18/2015 Inactive gentamicin 0.3 % eye drops RxNorm: 645526 3 Drop(s) OPH QID 09/23/2014 09/29/2014 Inactive trazodone 50 mg tablet RxNorm: 837613 TAKE 1 AND 1/2 TABLET AT BEDTIME FOR 2 WEEKS, MAY INCREASE TO 2 TABLETS IF NECESSARY AFTER THAT 09/22/2014 01/26/2015 Inactive Fioricet 50 mg-325 mg-40 mg tablet RxNorm: 233825 TAKE ONE TABLET BY MOUTH EVERY 4 HOURS NEEDED FOR PAIN 09/17/2014 09/28/2014 Inactive (Response to an electronic controlled substance refill request - RxReferenceNumber: [id number]) Duragesic 50 mcg/hr transdermal patch RxNorm: 047728 1 TD q72 hours 08/07/2014 01/06/2015 Inactive [SAVINGS FOR UNINSURED PATIENTS -- BIN:[id number], PCN: ASPROD1, Group: [id number], ID# [id number], Process claim through [employer], for questions: . THIS IS NOT INSURANCE.] alprazolam 0.25 mg tablet RxNorm: 498999 TAKE ONE TABLET BY MOUTH EVERY DAY NEEDED 07/31/2014 08/29/2014 Inactive (Response to an electronic controlled substance refill request - RxReferenceNumber: [id number]) alprazolam 0.25 mg tablet RxNorm: 095552 1 Tablet(s) PO daily as needed TAKE ONE TABLET BY MOUTH EVERY DAY NEEDED 07/30/2014 08/01/2014 Inactive (Response to an electronic controlled substance refill request - RxReferenceNumber: [id number]) Diflucan 150 mg tablet RxNorm: 734555 1 Tablet(s) PO daily 06/25/2014 07/01/2014 Inactive [SAVINGS FOR UNINSURED PATIENTS -- BIN:[id number], PCN: ASPROD1, Group: AME08, ID# [id number], Process claim through [employer], for questions: . THIS IS NOT INSURANCE.] Kenalog 40 mg/mL suspension for injection RxNorm: 0563785 Milliliter(s) Inj 06/23/2014 06/23/2014 Inactive [SAVINGS FOR UNINSURED PATIENTS -- BIN:[id number], PCN: ASPROD1, Group: [id number], ID# [id number], Process claim through [employer], for questions: . THIS IS NOT INSURANCE.] ceftriaxone 500 mg solution for injection RxNorm: 116962 Inj 06/23/2014 06/23/2014 Inactive [SAVINGS FOR UNINSURED PATIENTS -- BIN:863403, PCN: ASPROD1, Group: [id number], ID# [id number], Process claim through [employer], for questions: . THIS IS NOT INSURANCE.] Levaquin 500 mg tablet RxNorm: 065591 1 Tablet(s) PO daily 06/23/2014 07/13/2014 Inactive [SAVINGS FOR UNINSURED PATIENTS -- BIN:446905, PCN: ASPROD1, Group: [id number], ID# [id number], Process claim through [employer], for questions: . THIS IS NOT INSURANCE.] Duragesic 50 mcg/hr transdermal patch RxNorm: 469545 1 TD q72 hours 06/05/2014 08/06/2014 Inactive [SAVINGS FOR UNINSURED PATIENTS -- BIN:766091, PCN: ASPROD1, Group: [id number], ID# [id number], Process claim through [employer], for questions: . THIS IS NOT INSURANCE.] alprazolam 0.25 mg tablet RxNorm: 795590 1 Tablet(s) PO daily as needed TAKE ONE TABLET BY MOUTH EVERY DAY NEEDED 06/02/2014 07/29/2014 Inactive (Response to an electronic controlled substance refill request - RxReferenceNumber: [id number]) nystatin 100,000 unit/gram topical powder RxNorm: 143040 APPLY TO AFFECTED AREA(S) TWO TIMES A DAY 05/01/2014 06/14/2014 Inactive hydrochlorothiazide 25 mg tablet RxNorm: 083508 TAKE ONE TABLET BY MOUTH EVERY DAY MUST CALL MD FOR APPOINTMENT 04/24/2014 10/20/2014 Inactive alprazolam 0.25 mg tablet RxNorm: 164528 Tablet(s) TAKE ONE TABLET BY MOUTH EVERY DAY NEEDED 04/16/2014 06/02/2014 Inactive (Response to an electronic controlled substance refill request - RxReferenceNumber: [id number]) alprazolam 0.25 mg tablet RxNorm: 609670 TAKE ONE TABLET BY MOUTH EVERY DAY NEEDED 04/16/2014 05/15/2014 Inactive (Response to an electronic controlled substance refill request - RxReferenceNumber: [id number]) alprazolam 0.25 mg tablet RxNorm: 083847 TAKE ONE TABLET BY MOUTH EVERY DAY NEEDED 04/16/2014 05/15/2014 Inactive (Response to an electronic controlled substance refill request - RxReferenceNumber: [id number]) alprazolam 0.25 mg tablet RxNorm: 059815 TAKE ONE TABLET BY MOUTH EVERY DAY NEEDED 04/14/2014 04/16/2014 Inactive (Response to an electronic controlled substance refill request - RxReferenceNumber: [id number]) Lipitor 10 mg tablet RxNorm: 512824 TAKE ONE TABLET BY MOUTH EVERY DAY 04/14/2014 09/10/2014 Inactive alprazolam 0.25 mg tablet RxNorm: 450930 TAKE ONE TABLET BY MOUTH EVERY DAY NEEDED 04/14/2014 04/14/2014 Inactive (Response to an electronic controlled substance refill request - RxReferenceNumber: [id number]) alprazolam 0.25 mg tablet RxNorm: 203322 TAKE ONE TABLET BY MOUTH EVERY DAY NEEDED 04/14/2014 04/15/2014 Inactive (Response to an electronic controlled substance refill request - RxReferenceNumber: [id number]) alprazolam 0.25 mg tablet RxNorm: 437925 TAKE ONE TABLET BY MOUTH EVERY DAY NEEDED 04/14/2014 04/14/2014 Inactive (Response to an electronic controlled substance refill request - RxReferenceNumber: [id number]) nystatin 100,000 unit/gram topical powder RxNorm: 855274 1 Application TOP BID 04/03/2014 07/01/2014 Inactive [SAVINGS FOR UNINSURED PATIENTS -- BIN:434925, PCN: ASPRODLtitle, Group: TAB, ID# [id number], Process claim through [employer], for questions: . THIS IS NOT INSURANCE.] Keflex 500 mg capsule RxNorm: 807917 1 Capsule(s) PO QID 04/03/2014 04/09/2014 Inactive [SAVINGS FOR UNINSURED PATIENTS -- BIN:660413, PCN: ASPROD1, Group: TAB, ID# [id number], Process claim through [employer], for questions: . THIS IS NOT INSURANCE.] Synthroid 100 mcg tablet RxNorm: 771181 1 Tablet(s) PO daily TAKE ONE TABLET BY MOUTH EVERY DAY 04/01/2014 01/05/2015 Inactive [SAVINGS FOR UNINSURED PATIENTS -- BIN:408759, PCN: ASPROD1, Group: AME08, ID# [id number], Process claim through [employer], for questions: . THIS IS NOT INSURANCE.] Duragesic 50 mcg/hr transdermal patch RxNorm: 921800 1 TD q72 hours 03/24/2014 06/04/2014 Inactive [SAVINGS FOR UNINSURED PATIENTS -- BIN:159135, PCN: ASPROD1, Group: AME08, ID# [id number], Process claim through [employer], for questions: . THIS IS NOT INSURANCE.] trazodone 50 mg tablet RxNorm: 951991 TAKE 1 AND 1/2 TABLET AT BEDTIME FOR 2 WEEKS, MAY INCREASE TO 2 TABLETS IF NECESSARY AFTER THAT 03/18/2014 09/13/2014 Inactive nystatin 100,000 unit/gram topical powder RxNorm: 141903 1 Application TOP BID 03/07/2014 03/16/2014 Inactive [SAVINGS FOR UNINSURED PATIENTS -- BIN:203625, PCN: ASPROD1, Group: AME08, ID# [id number], Process claim through [employer], for questions: . THIS IS NOT INSURANCE.] permethrin 5 % topical cream RxNorm: 873840 1 Application TOP daily 03/07/2014 11/23/2015 Inactive apply head to toe-leave on overnight and wash off in the a.m. May repeat x 1 if needed Diflucan 150 mg tablet RxNorm: 535119 1 Tablet(s) PO daily 03/07/2014 03/09/2014 Inactive [SAVINGS FOR UNINSURED PATIENTS -- BIN:168322, PCN: ASPROD1, Group: [id number], ID# [id number], Process claim through [employer], for questions: . THIS IS NOT INSURANCE.] hydrochlorothiazide 25 mg tablet RxNorm: 165985 TAKE ONE TABLET BY MOUTH EVERY DAY MUST CALL MD FOR APPOINTMENT 03/06/2014 04/23/2014 Inactive Zithromax Z-Sergio 250 mg tablet RxNorm: 097710 Tablet(s) PO as directed 03/04/2014 11/23/2015 Inactive [SAVINGS FOR UNINSURED PATIENTS -- BIN:193319, PCN: ASPROD1, Group: AME08, ID# [id number], Process claim through [employer], for questions: . THIS IS NOT INSURANCE.] Flonase 50 mcg/actuation nasal spray,suspension RxNorm: 274004 1 [place] NASAL daily 03/04/2014 07/01/2014 Inactive [SAVINGS FOR UNINSURED PATIENTS -- BIN:975464, PCN: ASPROD1, Group: [id number], ID# [id number], Process claim through [employer], for questions: . THIS IS NOT INSURANCE.] alprazolam 0.25 mg tablet RxNorm: 213942 1 Tablet(s) PO PRN TAKE ONE TABLET BY MOUTH EVERY DAY NEEDED 02/25/2014 04/14/2014 Inactive (Appended: Controlled substance eRx refill - RxReferenceNumber: [id number]) alprazolam 0.25 mg tablet RxNorm: 967577 TAKE ONE TABLET BY MOUTH EVERY DAY NEEDED 02/21/2014 03/22/2014 Inactive (Response to an electronic controlled substance refill request - RxReferenceNumber: [id number]) alprazolam 0.25 mg tablet RxNorm: 006817 TAKE ONE TABLET BY MOUTH EVERY DAY NEEDED 02/21/2014 03/22/2014 Inactive (Response to an electronic controlled substance refill request - RxReferenceNumber: [id number]) alprazolam 0.25 mg tablet RxNorm: 586822 TAKE ONE TABLET BY MOUTH EVERY DAY NEEDED 02/18/2014 03/19/2014 Inactive (Response to an electronic controlled substance refill request - RxReferenceNumber: [id number]) Cymbalta 60 mg capsule,delayed release RxNorm: 688412 TAKE ONE CAPSULE BY MOUTH TWICE A DAY 02/18/2014 01/13/2015 Inactive Nexium 40 mg capsule,delayed release RxNorm: 190661 TAKE ONE CAPSULE BY MOUTH EVERY DAY 02/18/2014 01/13/2015 Inactive Bactrim DS 800 mg-160 mg tablet RxNorm: 513002 1 Tablet(s) PO BID 02/13/2014 02/19/2014 Inactive probiotic while one antibiotic Bactrim DS 800 mg-160 mg tablet RxNorm: 920998 1 Tablet(s) PO BID 02/13/2014 02/12/2014 Inactive hydrocodone 10 mg-acetaminophen 325 mg tablet RxNorm: 849495 Tablet(s) PO TAKE ONE TO TWO TABLETS BY MOUTH EVERY 6 HOURS NEEDED FOR PAIN 02/06/2014 03/18/2015 Inactive (Appended: Controlled substance eRx refill - RxReferenceNumber: [id number]) Abilify 2 mg tablet RxNorm: 485181 Tablet(s) PO TAKE ONE TABLET BY MOUTH EVERY NIGHT AT BEDTIME 02/03/2014 03/19/2015 Inactive Duragesic 50 mcg/hr transdermal patch RxNorm: 388314 1 TD q72 hours 01/14/2014 03/23/2014 Inactive alprazolam 0.25 mg tablet RxNorm: 417906 1 Tablet(s) PO QDAY PRN 01/14/2014 02/12/2014 Inactive alprazolam 0.25 mg tablet RxNorm: 570268 Tablet(s) PO TAKE ONE TABLET BY MOUTH EVERY DAY NEEDED 01/14/2014 02/24/2014 Inactive (Appended: Controlled substance eRx refill - RxReferenceNumber: [id number]) Lipitor 10 mg tablet RxNorm: 274047 Tablet(s) PO TAKE ONE TABLET BY MOUTH EVERY DAY 01/14/2014 04/13/2014 Inactive Synthroid 100 mcg tablet RxNorm: 936404 Tablet(s) PO TAKE ONE TABLET BY MOUTH EVERY DAY 2013 03/31/2014 Inactive Fioricet 50 mg-325 mg-40 mg tablet RxNorm: 981573 Tablet(s) PO TAKE ONE TABLET BY MOUTH EVERY 4 HOURS NEEDED FOR PAIN 11/27/2013 09/17/2014 Inactive Fioricet 50 mg-325 mg-40 mg tablet RxNorm: 071280 Tablet(s) PO TAKE ONE TABLET BY MOUTH EVERY 4 HOURS NEEDED FOR PAIN 11/25/2013 11/26/2013 Inactive Zithromax Z-Sergio 250 mg tablet RxNorm: 335662 Tablet(s) PO as directed 11/11/2013 01/13/2014 Inactive Bystolic 10 mg tablet RxNorm: 417971 Tablet(s) PO TAKE ONE TABLET BY MOUTH EVERY DAY 10/21/2013 09/28/2014 Inactive Abilify 2 mg tablet RxNorm: 906393 1 Tablet(s) PO QHS 09/25/2013 01/22/2014 Inactive Synthroid 100 mcg tablet RxNorm: 776872 Tablet(s) PO TAKE ONE TABLET BY MOUTH EVERY DAY 09/24/2013 12/25/2013 Inactive Abilify 2 mg tablet RxNorm: 085270 1 Tablet(s) PO QHS 09/24/2013 09/24/2013 Inactive Rocephin 500 mg solution for injection RxNorm: 167601 1ml Milliliter(s) Inj 09/24/2013 09/24/2013 Inactive Rocephin 500 mg solution for injection RxNorm: 581289 1 Milliliter(s) Inj 09/19/2013 09/19/2013 Inactive Bystolic 5 mg tablet RxNorm: 170995 1 1/2 Tablet(s) PO daily 09/17/2013 03/15/2014 Inactive 1 1/2 daily may have 90 day if cheaper Bystolic 5 mg tablet RxNorm: 763858 1 1/2 Tablet(s) PO daily 09/17/2013 09/16/2013 Inactive 1 1/2 daily Lipitor 10 mg tablet RxNorm: 799910 Tablet(s) PO TAKE ONE TABLET BY MOUTH EVERY DAY 09/12/2013 01/13/2014 Inactive hydrocodone 10 mg-acetaminophen 325 mg tablet RxNorm: 220171 Tablet(s) PO TAKE ONE TO TWO TABLETS BY MOUTH EVERY 6 HOURS NEEDED FOR PAIN 09/09/2013 10/29/2017 Inactive (Appended: Controlled substance eRx refill - RxReferenceNumber: [id number]) hydrocodone 10 mg-acetaminophen 325 mg tablet RxNorm: 087049 1 Tablet(s) PO Q6 PRN 09/09/2013 02/06/2014 Inactive hydrocodone 10 mg-acetaminophen 325 mg tablet RxNorm: 526817 Tablet(s) PO TAKE ONE TO TWO TABLETS BY MOUTH EVERY 6 HOURS NEEDED FOR PAIN 09/06/2013 10/29/2017 Inactive (Appended: Controlled substance eRx refill - RxReferenceNumber: [id number]) Norvasc 10 mg tablet RxNorm: 595806 Tablet(s) PO TAKE ONE TABLET BY MOUTH EVERY DAY 09/05/2013 10/25/2015 Inactive trazodone 50 mg tablet RxNorm: 249244 1 1/2 Tablet(s) PO QHS 09/03/2013 03/17/2014 Inactive 75q hs x 2 week may increase to 100mg if nec after that nystatin 100,000 unit/mL oral suspension RxNorm: 055335 6 Milliliter(s) PO QID 08/06/2013 08/15/2013 Inactive Flonase 50 mcg/actuation nasal spray,suspension RxNorm: 159388 2 [place] NASAL daily 08/06/2013 03/03/2014 Inactive nystatin 100,000 unit/mL oral suspension RxNorm: 717750 6 Unit(s) PO QID 08/05/2013 08/05/2013 Inactive Phenergan with Codeine Syrup RxNorm: 5 Milliliter(s) PO Q4 PRN 08/05/2013 12/02/2013 Inactive 8 ounces alprazolam 0.25 mg tablet RxNorm: 208588 1 Tablet(s) PO QDAY PRN 07/29/2013 01/14/2014 Inactive Diflucan 150 mg tablet RxNorm: 646476 1 Tablet(s) PO daily 07/24/2013 07/26/2013 Inactive hydrochlorothiazide 25 mg tablet RxNorm: 920898 Tablet(s) PO TAKE ONE TABLET BY MOUTH EVERY DAY MUST CALL MD FOR APPOINTMENT 07/19/2013 03/05/2014 Inactive Phenergan with Codeine Syrup RxNorm: 10 Milliliter(s) PO Q4 PRN 07/10/2013 08/04/2013 Inactive 8 ounces Rocephin 500 mg solution for injection RxNorm: 1481845 1 Inj 07/10/2013 07/10/2013 Inactive cefdinir 300 mg capsule RxNorm: 783138 1 Capsule(s) PO BID 07/10/2013 07/16/2013 Inactive prednisone 10 mg tablet RxNorm: 311812 3 Tablet(s) PO daily 07/10/2013 07/14/2013 Inactive Carafate 100 mg/mL oral suspension RxNorm: 697287 10 Milliliter(s) PO Q6 PRN pt to take carafate 10mL every 6 hours as needed. 07/10/2013 08/05/2014 Inactive Kenalog 40 mg/mL suspension for injection RxNorm: 8776759 1 Milliliter(s) Inj 07/10/2013 07/10/2013 Inactive trazodone 50 mg tablet RxNorm: 993491 1 Tablet(s) PO QHS 07/10/2013 09/02/2013 Inactive sulfamethoxazole 800 mg-trimethoprim 160 mg tablet RxNorm: 681309 1 Tablet(s) PO BID 06/03/2013 06/12/2013 Inactive Synthroid 125 mcg tablet RxNorm: 999136 1 Tablet(s) PO daily 05/07/2013 09/23/2013 Inactive Bystolic 10 mg tablet RxNorm: 764983 1.5 Tablet(s) PO daily 05/07/2013 09/03/2013 Inactive Voltaren 1 % Topical Gel RxNorm: 605680 4 Gram(s) TOP QID apply 4 grams to knees, 2 grams to hands and ankles four times daily. 05/07/2013 09/03/2013 Inactive hydrocodone 10 mg-acetaminophen 325 mg tablet RxNorm: 691755 1 Tablet(s) PO Q6 PRN 04/23/2013 09/09/2013 Inactive Norvasc 10 mg tablet RxNorm: 712233 Tablet(s) PO TAKE ONE TABLET BY MOUTH EVERY DAY 04/23/2013 09/04/2013 Inactive alprazolam 0.25 mg tablet RxNorm: 442674 1 Tablet(s) PO QDAY PRN 03/25/2013 07/22/2013 Inactive Bystolic 10 mg tablet RxNorm: 672825 1 Tablet(s) PO daily TAKE ONE TABLET BY MOUTH EVERY DAY 03/25/2013 05/06/2013 Inactive zolpidem 10 mg tablet RxNorm: 333863 1 Tablet(s) PO HS PRN 03/25/2013 07/09/2013 Inactive gentamicin 0.3 % Eye Drops RxNorm: 730300 3 Drop(s) OPH QID three gtts to each eye QID x 7 days 03/11/2013 03/10/2013 Inactive gentamicin 0.3 % eye drops RxNorm: 907473 3 Drop(s) OPH QID three gtts to each eye QID x 7 days 03/11/2013 03/17/2013 Inactive Nexium 40 mg capsule,delayed release RxNorm: 953178 Capsule(s) PO TAKE ONE CAPSULE BY MOUTH EVERY DAY 02/15/2013 02/17/2014 Inactive Cymbalta 60 mg capsule,delayed release RxNorm: 249046 Capsule(s) PO TAKE ONE CAPSULE BY MOUTH TWICE A DAY 02/15/2013 02/17/2014 Inactive hydrocodone 10 mg-acetaminophen 325 mg tablet RxNorm: 7412112 1 Tablet(s) PO Q6 PRN 01/22/2013 04/22/2013 Inactive Lipitor 10 mg tablet RxNorm: 768833 Tablet(s) PO TAKE ONE TABLET BY MOUTH EVERY DAY 01/07/2013 09/11/2013 Inactive Cymbalta 60 mg capsule,delayed release RxNorm: 764843 Capsule(s) PO TAKE ONE CAPSULE BY MOUTH TWICE A DAY 01/02/2013 02/14/2013 Inactive Synthroid 100 mcg tablet RxNorm: 484050 1 Tablet(s) PO 12/03/2012 05/06/2013 Inactive Enablex 7.5 mg tablet,extended release RxNorm: 568308 1 Tablet(s) PO daily 11/28/2012 11/27/2012 Inactive Enablex 7.5 mg tablet,extended release RxNorm: 885115 1 Tablet(s) PO daily 11/28/2012 11/28/2012 Inactive scopolamine 1.5 mg 72 hr Transderm Patch RxNorm: 703216 1 Milligram(s) TD q72 hours 11/26/2012 05/06/2013 Inactive hydrochlorothiazide 25 mg tablet RxNorm: 688865 Tablet(s) PO TAKE ONE TABLET BY MOUTH EVERY DAY MUST CALL FOR APPOINTMENT 11/24/2012 07/18/2013 Inactive Cymbalta 60 mg capsule,delayed release RxNorm: 422750 Capsule(s) PO TAKE ONE CAPSULE BY MOUTH TWICE A DAY 10/26/2012 01/01/2013 Inactive Bystolic 10 mg tablet RxNorm: 801128 Tablet(s) PO TAKE ONE TABLET BY MOUTH EVERY DAY 10/12/2012 03/25/2013 Inactive zolpidem 10 mg tablet RxNorm: 842525 1 Tablet(s) PO HS PRN 10/02/2012 01/29/2013 Inactive alprazolam 0.25 mg tablet RxNorm: 911706 1 Tablet(s) PO QDAY PRN 10/02/2012 01/29/2013 Inactive Kenalog 40 mg/mL Susp for Injection RxNorm: 4021077 1 Milliliter(s) Inj 09/24/2012 09/24/2012 Inactive Diflucan 150 mg tablet RxNorm: 865821 1 Tablet(s) PO daily 09/24/2012 09/30/2012 Inactive acyclovir 400 mg tablet RxNorm: 388814 1 Tablet(s) PO QID 09/24/2012 10/08/2012 Inactive Cipro 500 mg tablet RxNorm: 822666 1 Tablet(s) PO BID 09/24/2012 09/30/2012 Inactive Tamiflu 75 mg capsule RxNorm: 052190 1 Capsule(s) PO BID 09/17/2012 09/16/2012 Inactive Tamiflu 75 mg capsule RxNorm: 883963 1 Capsule(s) PO BID 09/17/2012 09/16/2012 Inactive Tamiflu 75 mg capsule RxNorm: 449729 1 Capsule(s) PO BID please disregard order for #14 09/17/2012 09/21/2012 Inactive fluconazole 150 mg tablet RxNorm: 119758 1 Tablet(s) PO daily 09/10/2012 09/13/2012 Inactive ketoconazole 2 % Topical Cream RxNorm: 046963 Application TOP BID apply to affected area BID until gone 08/31/2012 11/01/2017 Inactive Norvasc 10 mg tablet RxNorm: 410395 Tablet(s) PO TAKE ONE TABLET BY MOUTH EVERY DAY 08/29/2012 04/22/2013 Inactive Cipro 500 mg tablet RxNorm: 446975 1 Tablet(s) PO BID 08/17/2012 08/26/2012 Inactive Flagyl 500 mg tablet RxNorm: 243272 1 Tablet(s) PO TID 08/17/2012 08/23/2012 Inactive Cipro 500 mg tablet RxNorm: 062749 1 Tablet(s) PO BID 08/17/2012 08/16/2012 Inactive zolpidem 10 mg tablet RxNorm: 842229 1 Tablet(s) PO HS PRN 08/17/2012 09/15/2012 Inactive Flagyl 500 mg tablet RxNorm: 507927 1 Tablet(s) PO TID 08/17/2012 08/16/2012 Inactive alprazolam 0.25 mg tablet RxNorm: 946512 1 Tablet(s) PO QDAY PRN 08/17/2012 09/15/2012 Inactive [place] Allergy 180 mg tablet RxNorm: 869225 1 Tablet(s) PO daily 08/08/2012 02/03/2013 Inactive hydrochlorothiazide 25 mg tablet RxNorm: 351282 1/2 Tablet(s) PO daily 08/08/2012 11/05/2012 Inactive needs appt Carafate 1 gram tablet RxNorm: 464752 1 Tablet(s) PO QID mix with 10 cc water and dissolve into slurry 08/08/2012 08/21/2012 Inactive hydrocodone 10 mg-acetaminophen 325 mg tablet RxNorm: 8775347 1 Tablet(s) PO Q6 PRN 08/08/2012 01/21/2013 Inactive Synthroid 100 mcg tablet RxNorm: 919690 1 Tablet(s) PO 08/08/2012 12/02/2012 Inactive Cymbalta 60 mg capsule,delayed release RxNorm: 130605 Capsule(s) PO 07/23/2012 10/25/2012 Inactive TAKE ONE CAPSULE BY MOUTH TWICE A DAY Nexium 40 mg capsule,delayed release RxNorm: 308356 Capsule(s) PO 06/20/2012 02/14/2013 Inactive TAKE ONE CAPSULE BY MOUTH EVERY DAY Lipitor 10 mg tablet RxNorm: 028913 Tablet(s) PO 06/20/2012 01/06/2013 Inactive TAKE ONE TABLET BY MOUTH EVERY DAY hydrochlorothiazide 25 mg tablet RxNorm: 279031 1 Tablet(s) PO daily 06/19/2012 08/07/2012 Inactive needs appt alprazolam 0.25 mg tablet RxNorm: 222225 1 Tablet(s) PO QDAY PRN 06/05/2012 07/04/2012 Inactive zolpidem 10 mg tablet RxNorm: 881530 1 Tablet(s) PO HS PRN 06/05/2012 07/04/2012 Inactive zolpidem 10 mg tablet RxNorm: 721642 1 Tablet(s) PO HS PRN 04/16/2012 05/15/2012 Inactive alprazolam 0.25 mg tablet RxNorm: 399411 1 Tablet(s) PO QDAY PRN 04/16/2012 05/15/2012 Inactive Cymbalta 60 mg capsule,delayed release RxNorm: 015841 1 Capsule(s) PO BID 03/22/2012 07/19/2012 Inactive Fioricet 50 mg-325 mg-40 mg tablet RxNorm: 560986 1 Tablet(s) PO Q4 PRN 03/22/2012 11/24/2013 Inactive Bystolic 10 mg tablet RxNorm: 026504 Tablet(s) PO 03/22/2012 10/11/2012 Inactive TAKE ONE TABLET BY MOUTH EVERY DAY potassium chloride ER 10 mEq Tab RxNorm: 321210 1 Tablet(s) PO daily 02/24/2012 03/01/2012 Inactive Lasix 20 mg Tab RxNorm: 754704 1 Tablet(s) PO daily 02/22/2012 02/21/2012 Inactive KCL 10 meq RxNorm: 1 PO daily 02/22/2012 02/21/2012 Inactive potassium chloride ER 10 mEq Tab RxNorm: 553937 1 Tablet(s) PO daily 02/22/2012 02/21/2012 Inactive Lasix 20 mg Tab RxNorm: 290437 1 Tablet(s) PO daily 02/22/2012 02/28/2012 Inactive KCL 10 meq RxNorm: 1 PO daily 02/22/2012 02/22/2012 Inactive potassium chloride ER 10 mEq Tab RxNorm: 332602 1 Tablet(s) PO daily 02/22/2012 02/23/2012 Inactive Rocephin 500 mg Solution for Injection RxNorm: 6479384 Inj 02/15/2012 02/15/2012 Inactive Nexium 40 mg capsule,delayed release RxNorm: 180046 1 Capsule(s) PO daily 02/15/2012 No Stop Date Active Bystolic 10 mg Tab RxNorm: 062232 1 Tablet(s) PO daily 02/15/2012 08/12/2012 Inactive alprazolam 0.25 mg tablet RxNorm: 435267 1 Tablet(s) PO QDAY PRN 01/31/2012 02/29/2012 Inactive zolpidem 10 mg tablet RxNorm: 153555 1 Tablet(s) PO HS PRN 01/31/2012 02/29/2012 Inactive alprazolam 0.25 mg Tab RxNorm: 721952 1 Tablet(s) PO QDAY PRN 12/16/2011 01/14/2012 Inactive zolpidem 10 mg Tab RxNorm: 537405 1 Tablet(s) PO HS PRN 12/16/2011 01/14/2012 Inactive Norvasc 10 mg tablet RxNorm: 205882 1 Tablet(s) PO daily 12/02/2011 02/21/2012 Inactive Lipitor 10 mg tablet RxNorm: 472058 1 Tablet(s) PO daily 11/16/2011 05/13/2012 Inactive zolpidem 10 mg Tab RxNorm: 323572 1 Tablet(s) PO HS PRN 10/26/2011 12/15/2011 Inactive alprazolam 0.25 mg Tab RxNorm: 910531 1 Tablet(s) PO QDAY PRN 10/26/2011 12/15/2011 Inactive hydrochlorothiazide 25 mg tablet RxNorm: 237889 1 Tablet(s) PO daily 09/05/2011 03/02/2012 Inactive Synthroid 75 mcg tablet RxNorm: 539723 1 Tablet(s) PO daily 08/01/2011 02/26/2012 Inactive Abilify 2 mg Tab RxNorm: 962214 1 Tablet(s) PO QHS 08/01/2011 09/10/2012 Inactive dicyclomine 10 mg Cap RxNorm: 064147 1 Capsule(s) PO TID 08/01/2011 10/29/2011 Inactive alprazolam 0.25 mg Tab RxNorm: 864440 1 Tablet(s) PO QDAY PRN 07/26/2011 10/25/2011 Inactive Fioricet 50 mg-325 mg-40 mg tablet RxNorm: 268935 1 Tablet(s) PO Q4 PRN 07/14/2011 03/21/2012 Inactive Rocephin 500 mg Solution for Injection RxNorm: 5559129 1 Milliliter(s) Inj 07/14/2011 08/01/2011 Inactive Nexium 40 mg Capsule, delayed release RxNorm: 982388 1 Capsule(s) PO daily 05/23/2011 10/06/2011 Inactive Bystolic 10 mg tablet RxNorm: 594425 1 Tablet(s) PO daily 05/23/2011 11/18/2011 Inactive Bystolic 10 mg Tab RxNorm: 839431 1 Tablet(s) PO daily 05/23/2011 05/22/2011 Inactive alprazolam 0.25 mg Tab RxNorm: 665738 1 Tablet(s) PO QDAY PRN 05/23/2011 07/25/2011 Inactive Influenza Virus Vaccine 0.5 mL RxNorm: IM 05/23/2011 05/23/2011 Inactive zolpidem 10 mg Tab RxNorm: 902412 1 Tablet(s) PO HS PRN 05/23/2011 10/25/2011 Inactive Rocephin 500 mg Solution for Injection RxNorm: 0914778 1 Milliliter(s) Inj 05/03/2011 07/14/2011 Inactive Kenalog 40 mg/mL Susp for Injection RxNorm: 9634451 1 Milliliter(s) Inj 05/03/2011 07/14/2011 Inactive Bactrim DS 800 mg-160 mg Tab RxNorm: 119994 1 Tablet(s) PO BID 05/03/2011 08/01/2011 Inactive Bystolic 10 mg tablet RxNorm: 912954 1 Tablet(s) PO daily No Start Date Active Flonase 50 mcg/actuation nasal spray,suspension RxNorm: 8740066 2 [place] NASAL daily No Start Date 08/05/2013 Inactive Levaquin 500 mg tablet RxNorm: 668847 Tablet(s) PO No Start Date 04/19/2017 Inactive Duragesic 50 mcg/hr transdermal patch RxNorm: 945812 1 TD q72 hours No Start Date 01/13/2014 Inactive Vesicare 5 mg tablet RxNorm: 036552 1 Tablet(s) PO daily No Start Date 01/06/2015 Inactive Celebrex 200 mg capsule RxNorm: 910337 1 Capsule(s) PO daily No Start Date 04/02/2014 Inactive zolpidem 10 mg Tab RxNorm: 355033 1 Tablet(s) PO HS PRN No Start Date 05/22/2011 Inactive Zyrtec 10 mg Tab RxNorm: 7468875 1 Tablet(s) PO daily No Start Date 08/08/2012 Inactive Flonase 50 mcg/actuation nasal spray,suspension RxNorm: 1499665 1 [place] NASAL daily No Start Date 11/07/2017 Inactive 1 spray to each nostril daily Nexium 40 mg Cap RxNorm: 400795 1 Capsule(s) PO daily No Start Date 05/22/2011 Inactive ketoconazole 2 % Topical Cream RxNorm: 212857 Application TOP BID apply to affected area BID until gone No Start Date 08/30/2012 Inactive aspirin 81 mg tablet RxNorm: 320146 1 Tablet(s) PO daily No Start Date 11/13/2017 Inactive Cymbalta 60 mg capsule,delayed release RxNorm: 588407 1 Capsule(s) PO BID No Start Date 03/21/2012 Inactive alprazolam 0.25 mg Tab RxNorm: 832229 1 Tablet(s) PO QDAY PRN No Start Date 05/22/2011 Inactive baclofen 10 mg tablet RxNorm: 723668 1 Tablet(s) PO TID as needed muscle spasms No Start Date 11/14/2017 Inactive Toprol XL 100 mg 24 hr Tab RxNorm: 204942 1 Tablet(s) PO BID No Start Date 04/25/2011 Inactive Xanax 0.25 mg tablet RxNorm: 113274 1 Tablet(s) PO daily as needed No Start Date 12/27/2015 Inactive Bystolic 10 mg Tab RxNorm: 783632 1 Tablet(s) PO daily No Start Date 05/22/2011 Inactive Fioricet 50 mg-325 mg-40 mg Tab RxNorm: 073420 1 Tablet(s) PO Q4 PRN No Start Date 07/13/2011 Inactive albuterol sulfate HFA 90 mcg/Actuation Aerosol Inhaler RxNorm: 8361987 1 INH Q4 PRN No Start Date 01/06/2015 Inactive Imitrex 50 mg tablet RxNorm: 830060 1 Tablet(s) PO Q8 as needed may repeat x1 dose in 1 hour of inital dose. No Start Date 02/24/2016 Inactive dc fioricet Tessalon 200 mg Cap RxNorm: 622729 1 Capsule(s) PO Q4 PRN No Start Date 02/14/2012 Inactive Zithromax Z-Sergio 250 mg tablet RxNorm: 261514 Tablet(s) PO No Start Date 11/10/2013 Inactive hydrochlorothiazide 25 mg Tab RxNorm: 359291 1 Tablet(s) PO daily No Start Date 09/04/2011 Inactive Fish Oil 1,000 mg Cap RxNorm: 1 Capsule(s) PO TID No Start Date 11/08/2017 Inactive Deplin 15 mg Tab RxNorm: 1 Tablet(s) PO daily No Start Date 08/01/2011 Inactive Brilinta 90 mg tablet RxNorm: 2091856 1 Tablet(s) PO BID No Start Date 11/23/2015 Inactive Synthroid 75 mcg Tab RxNorm: 231653 1 Tablet(s) PO daily No Start Date 07/31/2011 Inactive ciprofloxacin 0.3 % eye drops RxNorm: 207890 2 Drop(s) ophthalmic (eye) Q2H while awake x 2 days, then Q4H x 5 days No Start Date 11/22/2017 Inactive scopolamine 1.5 mg 72 hr Transderm Patch RxNorm: 919033 1 Milligram(s) TD q72 hours No Start Date 11/25/2012 Inactive hydrocodone-acetaminophen 10 mg-325 mg tablet RxNorm: 0680923 1 Tablet(s) PO Q6 PRN No Start Date 08/07/2012 Inactive Phenergan with Codeine Syrup RxNorm: 5-10 Milliliter(s) PO Q6 PRN No Start Date 02/14/2012 Inactive Norvasc 10 mg Tab RxNorm: 586092 1 Tablet(s) PO daily No Start Date 12/01/2011 Inactive Zithromax Z-Esrgio 250 mg Tab RxNorm: 681446 Tablet(s) PO No Start Date 08/01/2011 Inactive Medication Administered Medication Codes Instructions Start Date Status ceftriaxone 500 mg solution for injection RxNorm: 2545201 05/28/2018 No longer Active Kenalog 40 mg/mL suspension for injection RxNorm: 1977441 Milliliter 05/28/2018 No longer Active ceftriaxone 500 mg solution for injection RxNorm: 1568634 500Milligram 01/19/2018 No longer Active Kenalog 40 mg/mL suspension for injection RxNorm: 3020813 1Milliliter 01/19/2018 No longer Active Kenalog 40 mg/mL suspension for injection RxNorm: 6313319 1Milliliter 06/27/2017 No longer Active Kenalog 40 mg/mL suspension for injection RxNorm: 2840377 Milliliter 04/20/2017 No longer Active Kenalog 40 mg/mL suspension for injection RxNorm: 6867352 1Milliliter 03/14/2017 No longer Active ceftriaxone 500 mg solution for injection RxNorm: 1500057 1Milliliter 11/28/2016 No longer Active Kenalog 40 mg/mL suspension for injection RxNorm: 7095021 Milliliter 11/07/2016 No longer Active ceftriaxone 500 mg solution for injection RxNorm: 7660659 11/07/2016 No longer Active ceftriaxone 500 mg solution for injection RxNorm: 0144712 12/07/2015 No longer Active Kenalog 40 mg/mL suspension for injection RxNorm: 8186948 1Milliliter 11/24/2015 No longer Active ceftriaxone 500 mg solution for injection RxNorm: 6998270 Milliliter 11/24/2015 No longer Active promethazine 25 mg/mL injection solution RxNorm: 219187 Milliliter 08/27/2015 No longer Active ketorolac 60 mg/2 mL intramuscular solution RxNorm: 341263 Milliliter 08/27/2015 No longer Active Kenalog 40 mg/mL suspension for injection RxNorm: 9212866 Milliliter 08/10/2015 No longer Active ceftriaxone 500 mg solution for injection RxNorm: 0660292 08/10/2015 No longer Active ceftriaxone 500 mg solution for injection RxNorm: 3811063 1Milliliter 07/28/2015 No longer Active Kenalog 40 mg/mL suspension for injection RxNorm: 6278818 Milliliter 03/19/2015 No longer Active Kenalog 40 mg/mL suspension for injection RxNorm: 4998963 Milliliter 06/23/2014 No longer Active ceftriaxone 500 mg solution for injection RxNorm: 478413 06/23/2014 No longer Active Rocephin 500 mg solution for injection RxNorm: 827947 1mlMilliliter 09/24/2013 No longer Active Rocephin 500 mg solution for injection RxNorm: 835149 1Milliliter 09/19/2013 No longer Active Rocephin 500 mg solution for injection RxNorm: 0840015 1 07/10/2013 No longer Active Kenalog 40 mg/mL suspension for injection RxNorm: 6132485 1Milliliter 07/10/2013 No longer Active Kenalog 40 mg/mL Susp for Injection RxNorm: 1232683 1Milliliter 09/24/2012 No longer Active Rocephin 500 mg Solution for Injection RxNorm: 5313336 02/15/2012 No longer Active Influenza Virus Vaccine [...] Ord30 C/HDL 4.3 Ratio 01/01/2019 Comp Metabolic Ebl411 NA 140 mEq/L 01/01/2019 Comp Metabolic Vof007 K 3.8 mEq/L 01/01/2019 Comp Metabolic Dhb712 CL 103 mEq/L 01/01/2019 Comp Metabolic Hfe819 CO2 28.0 mEq/L 01/01/2019 Comp Metabolic Qtr062 ANION GAP 13 01/01/2019 Comp Metabolic Pyw367 GLUCOSE 93 mg/dL 01/01/2019 Comp Metabolic Hlw181 Creat 0.7 mg/dL 01/01/2019 Comp Metabolic Gof034 eGFR 86 ml/min/1.73m2 01/01/2019 Comp Metabolic Mrj121 BUN 21 mg/dL 01/01/2019 Comp Metabolic Cjb361 B/C Ratio 29.6 Ratio 01/01/2019 Comp Metabolic Guy541 CALCIUM 9.4 mg/dL 01/01/2019 Comp Metabolic Dzp050 ALK PHOS 67 U/L 01/01/2019 Comp Metabolic Gul219 AST(SGOT) 27 U/L 01/01/2019 Comp Metabolic Nok569 ALT(SGPT) 30 U/L 01/01/2019 Comp Metabolic Cfo115 BILI T 0.5 mg/dL 01/01/2019 Comp Metabolic Jza218 ALBUMIN 4.0 g/dL 01/01/2019 Comp Metabolic Nyl618 TPRO 6.8 g/dL 01/01/2019 Comp Metabolic Het376 GLOB 2.8 g/dL 01/01/2019 Comp Metabolic Dim774 A/G Ratio 1.4 Ratio 01/01/2019 Comp Metabolic Iyk401 Osmo 282 mOsmo 01/01/2019 Free T4 Kbj853 FREE T4 0.71 ng/dL 10/31/2018 Tsh Ord6 TSH (3rd IS) 7.87 uIU/mL 10/31/2018 Lipid Ord30 CHOL 170 mg/dL 10/31/2018 Lipid Ord30 HDL 53.0 mg/dl 10/31/2018 Lipid Ord30 TRIG 85 mg/dL 10/31/2018 Lipid Ord30 LDL 100 mg/dL 10/31/2018 Lipid Ord30 C/HDL 3.2 Ratio 10/31/2018 Comp Metabolic Bpt221 NA 142 mEq/L 10/31/2018 Comp Metabolic Ykn187 K 4.0 mEq/L 10/31/2018 Comp Metabolic Qjk539 CL 106 mEq/L 10/31/2018 Comp Metabolic Knv499 CO2 27.0 mEq/L 10/31/2018 Comp Metabolic Jxk088 ANION GAP 13 10/31/2018 Comp Metabolic Jbz484 GLUCOSE 114 mg/dL 10/31/2018 Comp Metabolic Wei227 Creat 0.7 mg/dL 10/31/2018 Comp Metabolic Mnc727 eGFR 90 ml/min/1.73m2 10/31/2018 Comp Metabolic Swz207 BUN 21 mg/dL 10/31/2018 Comp Metabolic Ttc678 B/C Ratio 30.9 Ratio 10/31/2018 Comp Metabolic Vxy814 CALCIUM 9.7 mg/dL 10/31/2018 Comp Metabolic Kje053 ALK PHOS 63 U/L 10/31/2018 Comp Metabolic Zuf750 AST(SGOT) 24 U/L 10/31/2018 Comp Metabolic Tpv515 ALT(SGPT) 21 U/L 10/31/2018 Comp Metabolic Cgr393 BILI T 0.6 mg/dL 10/31/2018 Comp Metabolic Gwi307 ALBUMIN 4.1 g/dL 10/31/2018 Comp Metabolic Mla487 TPRO 6.6 g/dL 10/31/2018 Comp Metabolic Abf808 GLOB 2.5 g/dL 10/31/2018 Comp Metabolic Zba354 A/G Ratio 1.7 Ratio 10/31/2018 Comp Metabolic Ysu742 Osmo 287 mOsmo 10/31/2018 Cbc With Differential [...] 30.9 pg 10/31/2018 Cbc With Differential Ord2 Nolan% 8.0 % 10/31/2018 Cbc With Differential Ord2 [...] 1.88 K/ul 10/31/2018 Cbc With Differential Ord2 Nolan ABS# 0.6 K/ul 10/31/2018 Cbc With Differential Ord2 Eos ABS# 0.5 K/ul 10/31/2018 Cbc With Differential Ord2 Baso ABS# 0.1 K/ul 10/31/2018 Comp Metabolic Ldy015 NA 141 mEq/L 09/12/2017 Comp Metabolic Sta641 K 4.1 mEq/L 09/12/2017 Comp Metabolic Gso105 CL 105 mEq/L 09/12/2017 Comp Metabolic Trw013 CO2 30.0 mEq/L 09/12/2017 Comp Metabolic Byv724 ANION GAP 10 09/12/2017 Comp Metabolic Mis826 GLUCOSE 97 mg/dL 09/12/2017 Comp Metabolic Zvj575 Creat 0.7 mg/dL 09/12/2017 Comp Metabolic Kji916 eGFR 91 ml/min/1.73m2 09/12/2017 Comp Metabolic Sgm338 BUN 18 mg/dL 09/12/2017 Comp Metabolic Yyi527 B/C Ratio 26.5 Ratio 09/12/2017 Comp Metabolic Aoy930 CALCIUM 9.7 mg/dL 09/12/2017 Comp Metabolic Xhn216 ALK PHOS 60 U/L 09/12/2017 Comp Metabolic Dfd276 AST(SGOT) 22 U/L 09/12/2017 Comp Metabolic Npy972 ALT(SGPT) 23 U/L 09/12/2017 Comp Metabolic Brx673 BILI T 0.4 mg/dL 09/12/2017 Comp Metabolic Quh224 ALBUMIN 3.8 g/dL 09/12/2017 Comp Metabolic Opg542 TPRO 6.4 g/dL 09/12/2017 Comp Metabolic Dwn290 GLOB 2.6 g/dL 09/12/2017 Comp Metabolic Wwi506 A/G Ratio 1.5 Ratio 09/12/2017 Comp Metabolic Sak432 Osmo 283 mOsmo 09/12/2017 Cbc With Differential [...] 30.7 pg 09/12/2017 Cbc With Differential Ord2 Nolan% 7.2 % 09/12/2017 Cbc With Differential Ord2 [...] 2.46 K/ul 09/12/2017 Cbc With Differential Ord2 Nolan ABS# 0.6 K/ul 09/12/2017 Cbc With Differential [...] 31.4 pg 11/07/2016 Cbc With Differential Ord2 Nolan% 6.1 % 11/07/2016 Cbc With Differential Ord2 [...] 2.48 K/ul 11/07/2016 Cbc With Differential Ord2 Nolan ABS# 0.6 K/ul 11/07/2016 Cbc With Differential Ord2 Eos ABS# 0.3 K/ul 11/07/2016 Cbc With Differential Ord2 Baso ABS# 0.1 K/ul 11/07/2016 Comp Metabolic Boq159 NA 139 mEq/L 11/07/2016 Comp Metabolic Uwy800 K 3.8 mEq/L 11/07/2016 Comp Metabolic Qst097 CL 106 mEq/L 11/07/2016 Comp Metabolic Fzx528 CO2 25.0 mEq/L 11/07/2016 Comp Metabolic Nsp994 ANION GAP 12 11/07/2016 Comp Metabolic Hln296 GLUCOSE 98 mg/dL 11/07/2016 Comp Metabolic Bxj120 Creat 0.8 mg/dL 11/07/2016 Comp Metabolic Trr022 eGFR 71 ml/min/1.73m2 11/07/2016 Comp Metabolic Sqn929 BUN 36 mg/dL 11/07/2016 Comp Metabolic Uwf581 B/C Ratio 42.9 Ratio 11/07/2016 Comp Metabolic Dqd220 CALCIUM 9.9 mg/dL 11/07/2016 Comp Metabolic Clw427 ALK PHOS 57 U/L 11/07/2016 Comp Metabolic Kgo084 AST(SGOT) 24 U/L 11/07/2016 Comp Metabolic Mlq856 ALT(SGPT) 28 U/L 11/07/2016 Comp Metabolic Tfb228 BILI T 0.4 mg/dL 11/07/2016 Comp Metabolic Nsj551 ALBUMIN 4.2 g/dL 11/07/2016 Comp Metabolic Oxu152 TPRO 7.0 g/dL 11/07/2016 Comp Metabolic Ggi238 GLOB 2.8 g/dL 11/07/2016 Comp Metabolic Ejp014 A/G Ratio 1.5 Ratio 11/07/2016 Comp Metabolic Hme720 Osmo 286 mOsmo 11/07/2016 Free T4 Chj576 FREE T4 0.75 ng/dL 11/07/2016 Tsh Ord6 hTSH II 3.46 uIU/mL 11/07/2016 Comp Metabolic Cfh060 NA 138 mEq/L 05/10/2016 Comp Metabolic Ptv340 K 3.8 mEq/L 05/10/2016 Comp Metabolic Tpm550 CL 102 mEq/L 05/10/2016 Comp Metabolic Dyz191 CO2 29.0 mEq/L 05/10/2016 Comp Metabolic Caz770 ANION GAP 11 05/10/2016 Comp Metabolic Yel453 GLUCOSE 107 mg/dL 05/10/2016 Comp Metabolic Aky521 Creat 0.7 mg/dL 05/10/2016 Comp Metabolic Yuq383 eGFR 93 ml/min/1.73m2 05/10/2016 Comp Metabolic Cie798 BUN 18 mg/dL 05/10/2016 Comp Metabolic Vad238 B/C Ratio 26.9 Ratio 05/10/2016 Comp Metabolic Wfc345 CALCIUM 9.8 mg/dL 05/10/2016 Comp Metabolic Ris308 ALK PHOS 60 U/L 05/10/2016 Comp Metabolic Tpn830 AST(SGOT) 21 U/L 05/10/2016 Comp Metabolic Ncz474 ALT(SGPT) 23 U/L 05/10/2016 Comp Metabolic Fhh760 BILI T 0.5 mg/dL 05/10/2016 Comp Metabolic Rcz546 ALBUMIN 4.1 g/dL 05/10/2016 Comp Metabolic Xcq573 TPRO 6.7 g/dL 05/10/2016 Comp Metabolic Civ749 GLOB 2.7 g/dL 05/10/2016 Comp Metabolic Luv460 A/G Ratio 1.5 Ratio 05/10/2016 Comp Metabolic Nki911 Osmo 278 mOsmo 05/10/2016 Lipid Ord30 CHOL 169 mg/dL 05/10/2016 Lipid Ord30 HDL 50.0 mg/dl 05/10/2016 Lipid Ord30 TRIG 161 mg/dL 05/10/2016 Lipid Ord30 LDL 87 mg/dL 05/10/2016 Lipid Ord30 C/HDL 3.4 Ratio 05/10/2016 Comp Metabolic Sfc976 NA 137 mEq/L 06/12/2015 Comp Metabolic Mzi255 K 3.8 mEq/L 06/12/2015 Comp Metabolic Dsa612 CL 104 mEq/L 06/12/2015 Comp Metabolic Enm318 CO2 24.0 mEq/L 06/12/2015 Comp Metabolic Dyd650 ANION GAP 13 06/12/2015 Comp Metabolic Lpz450 GLUCOSE 92 mg/dL 06/12/2015 Comp Metabolic Xte686 Creat 0.7 mg/dL 06/12/2015 Comp Metabolic Bgw070 eGFR 87 ml/min/1.73m2 06/12/2015 Comp Metabolic Hof551 BUN 31 mg/dL 06/12/2015 Comp Metabolic Awj010 B/C Ratio 43.7 Ratio 06/12/2015 Comp Metabolic Moe916 CALCIUM 10.0 mg/dL 06/12/2015 Comp Metabolic Qhg165 ALK PHOS 58 U/L 06/12/2015 Comp Metabolic Okb152 AST(SGOT) 32 U/L 06/12/2015 Comp Metabolic Mgm334 ALT(SGPT) 33 U/L 06/12/2015 Comp Metabolic Ztz346 BILI T 0.5 mg/dL 06/12/2015 Comp Metabolic Cho462 ALBUMIN 4.1 g/dL 06/12/2015 Comp Metabolic Stn034 TPRO 6.6 g/dL 06/12/2015 Comp Metabolic Lkj156 GLOB 2.5 g/dL 06/12/2015 Comp Metabolic Vmq239 A/G Ratio 1.6 Ratio 06/12/2015 Comp Metabolic Vrb300 Osmo 280 mOsmo 06/12/2015 Cbc With Differential [...] Differential Ord2 RDW 14.2 % 06/12/2015 CBC 5691539 WBC 8.7 10e9/L 04/30/2013 CBC 5634434 RBC 4.63 10e12/L 04/30/2013 CBC 9792591 HGB 14.1 g/dL 04/30/2013 CBC 5383612 HCT DET 42.2 % 04/30/2013 CBC 8183644 MCV 91.1 fL 04/30/2013 CBC 7427717 MCH 30.5 pg 04/30/2013 CBC 9310525 MCHC 33.4 g/dL 04/30/2013 CBC 4291524 PLT 248 10e9/L 04/30/2013 CBC 3130415 MPV 12.1 fL 04/30/2013 CBC 1559448 LARA % 59.0 % 04/30/2013 CBC 6239130 LY % 27.6 % 04/30/2013 CBC 8482435 MON % 8.0 % 04/30/2013 CBC 1571122 EOS % 4.8 % 04/30/2013 CBC 3158896 BASO % 0.6 % 04/30/2013 CBC 9618368 RDW 13.3 % 04/30/2013 CBC 4486525 ABS LARA 5.13 10e9/L 04/30/2013 CBC 4136563 ABS LYMPH 2.40 10e9/L 04/30/2013 CBC 9177553 ABS MONO 0.70 10e9/L 04/30/2013 CBC 3715268 ABS EOS 0.42 10e9/L 04/30/2013 CBC 7347345 ABS BASO 0.05 10e9/L 04/30/2013 CBC 7909225 RDW-SD 43.1 fL 04/30/2013 TSH 8363226 TSH 4.339 uIU/ML 04/30/2013 A1C HPLC 3303608 A1C HPLC 62993-9 5.6 % 04/30/2013 FREE T4 9728863 FREE T4 0.84 NG/DL 04/30/2013 GFR CALC 0491968 GFR AA >60 ML/MIN 04/30/2013 GFR CALC 7940025 GFR NON-AA >60 ML/MIN 04/30/2013 CHEM 14 7290176 AST 22 U/L 04/30/2013 CHEM 14 8319429 ALT 22 IU/L 04/30/2013 CHEM 14 0934326 BUN 24 MG/DL 04/30/2013 CHEM 14 0100633 ALBUMIN 4.2 GM/DL 04/30/2013 CHEM 14 5150310 CHLORIDE 107 MMOL/L 04/30/2013 CHEM 14 9538075 BILI TOT 0.3 MG/DL 04/30/2013 CHEM 14 6077979 ALK PHOS 88 U/L 04/30/2013 CHEM 14 5749447 SODIUM 141 MMOL/L 04/30/2013 CHEM 14 1863151 CREATININE 0.60 MG/DL 04/30/2013 CHEM 14 0686622 CALCIUM 9.9 MG/DL 04/30/2013 CHEM 14 6977285 POTASSIUM 3.7 MMOL/L 04/30/2013 CHEM 14 2331700 PROT TOT 6.6 GM/DL 04/30/2013 CHEM 14 3830813 GLUCOSE 123 MG/DL 04/30/2013 CHEM 14 0871141 BICARB 25 MMOL/L 04/30/2013 CHEM 14 8582549 ANION GAP 9 MEQ/L 04/30/2013 LIPID GRP HDL TEST 46 MG/DL 04/30/2013 LIPID GRP TRIG 148 MG/DL 04/30/2013 LIPID GRP TEST LDL 75 MG/DL 04/30/2013 LIPID GRP CHOL 151 MG/DL 04/30/2013 LIPID GRP RCHOL/HDL 3.28 RATIO 04/30/2013 TSH 0152979 TSH 3.341 uIU/ML 11/29/2012 CBC 5345416 WBC 8.4 10e9/L 11/29/2012 CBC 2484282 RBC 4.77 10e12/L 11/29/2012 CBC 1153814 HGB 14.9 g/dL 11/29/2012 CBC 2029154 HCT DET 44.2 % 11/29/2012 CBC 9100936 MCV 92.7 fL 11/29/2012 CBC 0575836 MCH 31.2 pg 11/29/2012 CBC 0506687 MCHC 33.7 g/dL 11/29/2012 CBC 4367106 PLT 253 10e9/L 11/29/2012 CBC 7569188 MPV 11.8 fL 11/29/2012 CBC 9819872 LARA % 54.9 % 11/29/2012 CBC 3376984 LY % 29.0 % 11/29/2012 CBC 2552130 MON % 10.4 % 11/29/2012 CBC 6155584 EOS % 5.1 % 11/29/2012 CBC 2456729 BASO % 0.6 % 11/29/2012 CBC 5458646 RDW 13.8 % 11/29/2012 CBC 1986997 ABS LARA 4.61 10e9/L 11/29/2012 CBC 1940414 ABS LYMPH 2.44 10e9/L 11/29/2012 CBC 0736854 ABS MONO 0.87 10e9/L 11/29/2012 CBC 3386306 ABS EOS 0.43 10e9/L 11/29/2012 CBC 1536882 ABS BASO 0.05 10e9/L 11/29/2012 CBC 6836370 RDW-SD 45.9 fL 11/29/2012 CHEM 14 7187229 AST 25 U/L 11/29/2012 CHEM 14 0969360 ALT 26 IU/L 11/29/2012 CHEM 14 8396871 BUN 25 MG/DL 11/29/2012 CHEM 14 9422439 ALBUMIN 4.4 GM/DL 11/29/2012 CHEM 14 7635181 CHLORIDE 106 MMOL/L 11/29/2012 CHEM 14 9325499 BILI TOT 0.4 MG/DL 11/29/2012 CHEM 14 6852557 ALK PHOS 86 U/L 11/29/2012 CHEM 14 0480952 SODIUM 141 MMOL/L 11/29/2012 CHEM 14 6172589 CREATININE 0.80 MG/DL 11/29/2012 CHEM 14 3064406 CALCIUM 9.7 MG/DL 11/29/2012 CHEM 14 5168941 POTASSIUM 4.0 MMOL/L 11/29/2012 CHEM 14 0663161 PROT TOT 6.6 GM/DL 11/29/2012 CHEM 14 6938313 GLUCOSE 112 MG/DL 11/29/2012 CHEM 14 3612827 BICARB 29 MMOL/L 11/29/2012 CHEM 14 5619969 ANION GAP 6 MEQ/L 11/29/2012 A1C HPLC 9391785 A1C HPLC 27957-3 5.5 % 11/29/2012 LIPID GRP HDL TEST 54 MG/DL 11/29/2012 LIPID GRP TRIG 77 MG/DL 11/29/2012 LIPID GRP TEST LDL 78 MG/DL 11/29/2012 LIPID GRP CHOL 147 MG/DL 11/29/2012 LIPID GRP RCHOL/HDL 2.72 RATIO 11/29/2012 FREE T4 4343413 FREE T4 1.23 NG/DL 11/29/2012 GFR CALC 3672159 GFR AA >60 ML/MIN 11/29/2012 GFR CALC 7059605 GFR NON-AA >60 ML/MIN 11/29/2012 CHEM 14 9296638 AST 23 U/L 08/07/2012 CHEM 14 2327210 ALT 34 IU/L 08/07/2012 CHEM 14 8297895 BUN 26 MG/DL 08/07/2012 CHEM 14 5843133 ALBUMIN 4.4 GM/DL 08/07/2012 CHEM 14 6517568 CHLORIDE 105 MMOL/L 08/07/2012 CHEM 14 5112466 BILI TOT 0.5 MG/DL 08/07/2012 CHEM 14 6620042 ALK PHOS 79 U/L 08/07/2012 CHEM 14 5848311 SODIUM 140 MMOL/L 08/07/2012 CHEM 14 6540678 CREATININE 0.71 MG/DL 08/07/2012 CHEM 14 6664178 CALCIUM 10.4 MG/DL 08/07/2012 CHEM 14 1525097 POTASSIUM 3.8 MMOL/L 08/07/2012 CHEM 14 5401228 PROT TOT 6.8 GM/DL 08/07/2012 CHEM 14 5542558 GLUCOSE 104 MG/DL 08/07/2012 CHEM 14 7122389 BICARB 27 MMOL/L 08/07/2012 CHEM 14 7734369 ANION GAP 8 MEQ/L 08/07/2012 A1C HPLC 9489549 A1C HPLC 26387-8 5.4 % 08/07/2012 FREE T4 6725852 FREE T4 1.11 NG/DL 08/07/2012 LIPID GRP HDL TEST 50 MG/DL 08/07/2012 LIPID GRP TRIG 127 MG/DL 08/07/2012 LIPID GRP TEST LDL 93 MG/DL 08/07/2012 LIPID GRP CHOL 168 MG/DL 08/07/2012 LIPID GRP RCHOL/HDL 3.36 RATIO 08/07/2012 CBC 3034741 WBC 8.7 10e9/L 08/07/2012 CBC 9634633 RBC 4.67 10e12/L 08/07/2012 CBC 7565009 HGB 14.4 g/dL 08/07/2012 CBC 1674156 HCT DET 42.8 % 08/07/2012 CBC 5778670 MCV 91.6 fL 08/07/2012 CBC 8939317 MCH 30.8 pg 08/07/2012 CBC 6716165 MCHC 33.6 g/dL 08/07/2012 CBC 9452057 PLT 271 10e9/L 08/07/2012 CBC 5099214 MPV 12.3 fL 08/07/2012 CBC 3281980 LARA % 50.6 % 08/07/2012 CBC 1529107 LY % 34.9 % 08/07/2012 CBC 6729587 MON % 9.1 % 08/07/2012 CBC 9375028 EOS % 5.1 % 08/07/2012 CBC 2662010 BASO % 0.3 % 08/07/2012 CBC 6778311 RDW 13.6 % 08/07/2012 CBC 0672397 ABS LARA 4.40 10e9/L 08/07/2012 CBC 0745902 ABS LYMPH 3.04 10e9/L 08/07/2012 CBC 6196697 ABS MONO 0.79 10e9/L 08/07/2012 CBC 1181967 ABS EOS 0.44 10e9/L 08/07/2012 CBC 4981043 ABS BASO 0.03 10e9/L 08/07/2012 CBC 8986083 RDW-SD 44.1 fL 08/07/2012 TSH 7873344 TSH 7.419 uIU/ML 08/07/2012 GFR CALC 4907887 GFR AA >60 ML/MIN 08/07/2012 GFR CALC 5034601 GFR NON-AA >60 ML/MIN 08/07/2012 A1C HPLC 4499190 A1C HPLC 21240-2 5.3 % 02/21/2012 TSH 6027510 TSH 0.832 uIU/ML 02/16/2012 FREE T4 8105838 FREE T4 1.04 NG/DL 02/16/2012 GFR CALC 0617352 GFR AA >60 ML/MIN 02/16/2012 GFR CALC 4766410 GFR NON-AA >60 ML/MIN 02/16/2012 BMP 2227868 GLUCOSE 112 MG/DL 02/16/2012 BMP 6708474 CREATININE 0.65 MG/DL 02/16/2012 BMP 2058353 BUN 17 MG/DL 02/16/2012 BMP 8979217 SODIUM 144 MMOL/L 02/16/2012 BMP 4546955 POTASSIUM 4.0 MMOL/L 02/16/2012 BMP 5313765 CHLORIDE 107 MMOL/L 02/16/2012 BMP 7673153 BICARB 29 MMOL/L 02/16/2012 BMP 2125141 ANION GAP 8 MEQ/L 02/16/2012 BMP 0587916 CALCIUM 9.5 MG/DL 02/16/2012 CBC 1720361 WBC 7.1 10e9/L 02/16/2012 CBC 4654355 RBC 4.47 10e12/L 02/16/2012 CBC 6455946 HGB 13.5 g/dL 02/16/2012 CBC 9223729 HCT DET 40.7 % 02/16/2012 CBC 6872544 MCV 91.1 fL 02/16/2012 CBC 1074728 MCH 30.2 pg 02/16/2012 CBC 6431178 MCHC 33.2 g/dL 02/16/2012 CBC 4599564 PLT 238 10e9/L 02/16/2012 CBC 3809381 MPV 11.4 fL 02/16/2012 CBC 8736748 LARA % 55.7 % 02/16/2012 CBC 6667205 LY % 29.6 % 02/16/2012 CBC 7093306 MON % 9.2 % 02/16/2012 CBC 7109503 EOS % 5.1 % 02/16/2012 CBC 2982400 BASO % 0.4 % 02/16/2012 CBC 4678092 RDW 13.0 % 02/16/2012 CBC 6261298 ABS LARA 3.95 10e9/L 02/16/2012 CBC 6708107 ABS LYMPH 2.10 10e9/L 02/16/2012 CBC 4854990 ABS MONO 0.65 10e9/L 02/16/2012 CBC 8856565 ABS EOS 0.36 10e9/L 02/16/2012 CBC 2244104 ABS BASO 0.03 10e9/L 02/16/2012 CBC 4745807 RDW-SD 42.4 fL 02/16/2012 URINALYSIS NONAUTO W/O SCOPE 71666 Specific [place] 1.015 DateTime(Free Text in Aprima) URINALYSIS NONAUTO W/O SCOPE 71994 PH 7 DateTime(Free Text in Aprima) URINALYSIS NONAUTO W/O SCOPE 14064 GLUCOSE neg DateTime(Free Text in Aprima) URINALYSIS NONAUTO W/O SCOPE 71798 Protein 1+ DateTime(Free Text in Aprima) URINALYSIS NONAUTO W/O SCOPE 48474 Blood neg DateTime(Free Text in Aprima) URINALYSIS NONAUTO W/O SCOPE 02359 Bilirubin neg DateTime(Free Text in Aprima) URINALYSIS NONAUTO W/O SCOPE 25291 Ketones neg DateTime(Free Text in Aprima) URINALYSIS NONAUTO W/O SCOPE 01871 Urobilinogen neg DateTime(Free Text in Aprima) URINALYSIS NONAUTO W/O SCOPE 48884 Nitrite postive DateTime(Free Text in Aprima) URINALYSIS NONAUTO W/O SCOPE 66382 Leukocytes 3+ DateTime(Free Text in Aprima) URINALYSIS NONAUTO W/O SCOPE 95432 Specific [place] 1.030 DateTime(Free Text in Aprima) URINALYSIS NONAUTO W/O SCOPE 44990 PH 6 DateTime(Free Text in Aprima) URINALYSIS NONAUTO W/O SCOPE 33596 GLUCOSE neg DateTime(Free Text in Aprima) URINALYSIS NONAUTO W/O SCOPE 93130 Protein neg DateTime(Free Text in Aprima) URINALYSIS NONAUTO W/O SCOPE 34174 Blood neg DateTime(Free Text in Aprima) URINALYSIS NONAUTO W/O SCOPE 42157 Bilirubin neg DateTime(Free Text in Aprima) URINALYSIS NONAUTO W/O SCOPE 61184 Ketones neg DateTime(Free Text in Aprima) URINALYSIS NONAUTO W/O SCOPE 81011 Urobilinogen neg DateTime(Free Text in Aprima) URINALYSIS NONAUTO W/O SCOPE 50949 Nitrite neg DateTime(Free Text in Aprima) URINALYSIS NONAUTO W/O SCOPE 22933 Leukocytes trace DateTime(Free Text in Aprima) URINALYSIS NONAUTO W/O SCOPE 27182 Specific [place] 1.005 DateTime(Free Text in Aprima) URINALYSIS NONAUTO W/O SCOPE 19429 PH 5 DateTime(Free Text in Aprima) URINALYSIS NONAUTO W/O SCOPE 66106 GLUCOSE neg DateTime(Free Text in Aprima) URINALYSIS NONAUTO W/O SCOPE 01004 Protein neg DateTime(Free Text in Aprima) URINALYSIS NONAUTO W/O SCOPE 39568 Blood neg DateTime(Free Text in Aprima) URINALYSIS NONAUTO W/O SCOPE 21382 Bilirubin neg DateTime(Free Text in Aprima) URINALYSIS NONAUTO W/O SCOPE 32345 Ketones neg DateTime(Free Text in Aprima) URINALYSIS NONAUTO W/O SCOPE 82468 Urobilinogen neg DateTime(Free Text in Aprima) URINALYSIS NONAUTO W/O SCOPE 07990 Nitrite neg DateTime(Free Text in Aprima) URINALYSIS NONAUTO W/O SCOPE 50995 Leukocytes neg DateTime(Free Text in ) UA 24340 Specific [place] 1.030 DateTime(Free Text in ) UA 68644 PH 5 DateTime(Free Text in ) UA 02318 GLUCOSE neg DateTime(Free Text in ) UA 26387 Protein trace DateTime(Free Text in ) UA 92143 Blood large DateTime(Free Text in ) UA 73713 Bilirubin neg DateTime(Free Text in ) UA 92963 Ketones neg DateTime(Free Text in ) UA 18300 Urobilinogen neg DateTime(Free Text in ) UA 82508 Nitrite neg DateTime(Free Text in ) UA 58819 Leukocytes large DateTime(Free Text in ) Review [...] time 11/21/2013 None Full Exam - General 1995 Psychiatric mood and affect Overall: normal mood and affect 11/21/2013 None Full Exam - General 1994 Psychiatric appearance Overall: well-groomed, good eye contact 11/21/2013 None Full Exam - General 1994 Psychiatric orientation/consciousness Overall: oriented to person, place and time 09/24/2013 None Full Exam - General 1995 Constitutional general appearance Overall: well developed 09/24/2013 [...] distress 06/03/2013 None Full Exam - General 1995 Constitutional general appearance Overall: well nourished 06/03/2013 [...] time 06/03/2013 None Full Exam - General 1995 [...] developed 05/07/2013 None Full Exam - General 1995 [...] bilaterally 12/03/2012 None Full Exam - General 1995 Respiratory respiratory effort/rhythm Overall: no retractions 12/03/2012 [...] 02/15/2012 None Full Exam - General 1995 Eyes conjunctiva/eyelids Overall: eyelids normal 02/15/2012 None Full Exam - General 1995 Eyes conjunctiva/eyelids Overall: cornea clear 02/15/2012 None [...] Codes Date URINALYSIS NONAUTO W/O SCOPE CPT-4: 25366 07/10/2018 TRIAMCINOLONE ACET INJ NOS CPT-4: J3301 05/28/2018 ROCEPHIN, PER 250 MG CPT- 4: J0696 05/28/2018 ROCEPHIN, PER 250 MG CPT- 4: J0696 01/19/2018 TRIAMCINOLONE ACET INJ NOS CPT-4: J3301 01/19/2018 PPPS, SUBSEQ VISIT CPT- 4: G0439 11/23/2017 TRIAMCINOLONE ACET INJ NOS CPT-4: J3301 06/27/2017 THER/PROPH/DIAG INJ SC/IM CPT-4: 14265 04/20/2017 TRIAMCINOLONE ACET INJ NOS CPT-4: J3301 04/20/2017 TRIAMCINOLONE ACET INJ NOS CPT-4: J3301 03/14/2017 ROCEPHIN, PER 250 MG CPT- 4: J0696 03/14/2017 DESTRUCT PREMALG LESION CPT-4: 52059 12/05/2016 DESTRUCT PREMALG LES 2-14 CPT-4: 35534 12/05/2016 URINALYSIS NONAUTO W/O SCOPE CPT-4: 90315 11/28/2016 ROCEPHIN, PER 250 MG CPT- 4: J0696 11/28/2016 PPPS, SUBSEQ VISIT CPT- 4: G0439 11/07/2016 THER/PROPH/DIAG INJ SC/IM CPT-4: 21071 11/07/2016 TRIAMCINOLONE ACET INJ NOS CPT-4: J3301 11/07/2016 ROCEPHIN, PER 250 MG CPT- 4: J0696 11/07/2016 THER/PROPH/DIAG INJ SC/IM CPT-4: 80612 08/15/2016 TRIAMCINOLONE ACET INJ NOS CPT-4: J3301 08/15/2016 ROCEPHIN, PER 250 MG CPT- 4: J0696 08/15/2016 URINALYSIS NONAUTO W/O SCOPE CPT-4: 55696 05/05/2016 ROCEPHIN, PER 250 MG CPT- 4: J0696 12/07/2015 TRIAMCINOLONE ACET INJ NOS CPT-4: J3301 11/24/2015 ROCEPHIN, PER 250 MG CPT- 4: J0696 11/24/2015 THER/PROPH/DIAG INJ SC/IM CPT-4: 75887 11/24/2015 THER/PROPH/DIAG INJ SC/IM CPT-4: 28324 08/27/2015 KETOROLAC TROMETHAMINE INJ CPT-4: J1885 08/27/2015 PROMETHAZINE HCL INJECTION CPT-4: J2550 08/27/2015 THER/PROPH/DIAG INJ SC/IM CPT-4: 83428 08/10/2015 TRIAMCINOLONE ACET INJ NOS CPT-4: J3301 08/10/2015 ROCEPHIN, PER 250 MG CPT- 4: J0696 08/10/2015 C WOUN RTS (CULTURE OTHR SPECIMN AEROBIC) CPT-4: 85204 07/28/2015 THER/PROPH/DIAG INJ SC/IM CPT-4: 90379 03/19/2015 TRIAMCINOLONE ACET INJ NOS CPT-4: J3301 03/19/2015 ROCEPHIN, PER 250 MG CPT- 4: J0696 06/23/2014 TRIAMCINOLONE ACET INJ NOS CPT-4: J3301 06/23/2014 INJ TRIGGER POINT 1/2 MUSCL CPT-4: 74473 06/05/2014 URINALYSIS NONAUTO W/O SCOPE CPT-4: 20582 02/11/2014 URINALYSIS NONAUTO W/O SCOPE CPT-4: 58915 10/15/2013 ROCEPHIN, PER 250 MG CPT- 4: J0696 09/24/2013 THER/PROPH/DIAG INJ SC/IM CPT-4: 70080 09/19/2013 ROCEPHIN, PER 250 MG CPT- 4: J0696 09/19/2013 PRESCRIP TRANSMIT VIA ERX SY CPT-4: G8553 08/05/2013 ROCEPHIN, PER 250 MG CPT- 4: J0696 07/10/2013 THER/PROPH/DIAG INJ SC/IM CPT-4: 45747 07/10/2013 TRIAMCINOLONE ACET INJ NOS CPT-4: J3301 07/10/2013 PRESCRIP TRANSMIT VIA ERX SY CPT-4: G8553 07/10/2013 [id number] EST. PATIENT, LEVEL III CPT-4: 69407 06/03/2013 PRESCRIP TRANSMIT VIA ERX SY CPT-4: G8553 06/03/2013 PRESCRIP TRANSMIT VIA ERX SY CPT-4: G8553 05/07/2013 ROUTINE VENIPUNCTURE CPT- 4: 85272 04/30/2013 ROUTINE VENIPUNCTURE CPT- 4: 94299 11/29/2012 TRIAMCINOLONE ACET INJ NOS CPT-4: J3301 09/24/2012 THER/PROPH/DIAG INJ SC/IM CPT-4: 34947 09/24/2012 URINALYSIS NONAUTO W/O SCOPE CPT-4: 57742 09/24/2012 PRESCRIP TRANSMIT VIA ERX SY CPT-4: G8553 09/24/2012 PRESCRIP TRANSMIT VIA ERX SY CPT-4: G8553 09/10/2012 PRESCRIP TRANSMIT VIA ERX SY CPT-4: G8553 08/08/2012 ROUTINE VENIPUNCTURE CPT- 4: 77225 08/07/2012 ROUTINE VENIPUNCTURE CPT- 4: 90158 02/16/2012 URINALYSIS NONAUTO W/O SCOPE CPT-4: 75783 02/15/2012 ROCEPHIN, PER 250 MG CPT- 4: J0696 02/15/2012 PRESCRIP TRANSMIT VIA ERX SY CPT-4: G8553 02/15/2012 ROUTINE VENIPUNCTURE CPT- 4: 41443 11/08/2011 ROCEPHIN, PER 250 MG CPT- 4: J0696 07/14/2011 THER/PROPH/DIAG INJ SC/IM CPT-4: 26178 07/14/2011 Influenza Virus Vaccine, Split Virus, >3 Yrs, IM CPT-4: 31351 05/23/2011 IMMUNIZATION ADMIN CPT- 4: 04876 05/23/2011 THER/PROPH/DIAG INJ SC/IM CPT-4: 57640 05/03/2011 ROCEPHIN, PER 250 MG CPT- 4: J0696 05/03/2011 TRIAMCINOLONE ACET INJ NOS CPT-4: J3301 05/03/2011 Vital Signs Date Vital 01/29/2019 Blood Pressure 1: 138/88 Code: 8480-6 BMI: 31.9 Code: 97584-9 Heart Rate 1: 74 bpm Height: 4'11" SpO2: 94% Weight: 158 lbs 11/27/2018 Blood Pressure 1: 144/82 Code: 8480-6 Heart Rate 1: 67 bpm SpO2: 93% 11/16/2018 Blood Pressure 1: 168/100 Code: 8480-6 Heart Rate 1: 74 bpm SpO2: 96% 11/13/2018 Blood Pressure 1: 184/98 Code: 8480-6 BMI: 32.1 Code: 36785-2 Heart Rate 1: 68 bpm Height: 4'11" SpO2: 96% Weight: 159 lbs 10/30/2018 Blood Pressure 1: 158/98 Code: 8480-6 BMI: 31.7 Code: 63898-4 Heart Rate 1: 80 bpm Height: 4'11" SpO2: 96% Weight: 157 lbs 10/08/2018 Blood Pressure 1: 140/80 Code: 8480-6 BMI: 32.1 Code: 72994-0 Heart Rate 1: 92 bpm Height: 4'11" SpO2: 103% Weight: 159 lbs 07/16/2018 Blood Pressure 1: 142/80 Code: 8480-6 BMI: 31.1 Code: 05771-7 Heart Rate 1: 78 bpm Height: 4'11" SpO2: 98% Weight: 154 lbs 07/10/2018 Blood Pressure 1: 156/82 Code: 8480-6 BMI: 31.1 Code: 70604-1 Heart Rate 1: 63 bpm Height: 4'11" SpO2: 99% Weight: 154 lbs 05/28/2018 Blood Pressure 1: 142/80 Code: 8480-6 Heart Rate 1: 82 bpm Height: SpO2: 97% Temperature: 35.9 (C) / 96.6 (F) Weight: 02/07/2018 Height: Weight: 01/19/2018 Blood Pressure 1: 128/76 Code: 8480-6 BMI: 31.2 Code: 93074-8 Heart Rate 1: 71 bpm Height: 4'11" SpO2: 96% Temperature: 36.5 (C) / 97.7 (F) Weight: 154 lbs 8 oz 11/23/2017 Blood Pressure 1: 146/80 Code: 8480-6 BMI: 31.7 Code: 94195-2 Heart Rate 1: 64 bpm Height: 4'11" SpO2: 97% Waist Measure (cm): 89 cm Weight: 157 lbs 09/12/2017 Blood Pressure 1: 140/86 Code: 8480-6 Heart Rate 1: 62 bpm SpO2: 96% Temperature: 36.6 (C) / 97.8 (F) Weight: 153 lbs 07/25/2017 Blood Pressure 1: 140/72 Code: 8480-6 BMI: 31.3 Code: 58934-6 Heart Rate 1: 76 bpm Height: 4'11" SpO2: 97% Temperature: 37.2 (C) / 99.0 (F) Weight: 155 lbs 06/27/2017 Blood Pressure 1: 144/84 Code: 8480-6 BMI: 31.1 Code: 76754-9 Heart Rate 1: 63 bpm Height: 4'11" SpO2: 99% Temperature: 36.4 (C) / 97.6 (F) Weight: 154 lbs 05/08/2017 Blood Pressure 1: 142/86 Code: 8480-6 BMI: 30.9 Code: 78313-6 Height: 4'11" Temperature: 36.3 (C) / 97.4 (F) Weight: 153 lbs 03/14/2017 Blood Pressure 1: 146/82 Code: 8480-6 BMI: 30.9 Code: 46463-1 Heart Rate 1: 64 bpm Height: 4'11" SpO2: 94% Weight: 153 lbs 02/20/2017 Blood Pressure 1: 142/80 Code: 8480-6 BMI: 30.9 Code: 05878-6 Heart Rate 1: 75 bpm Height: 4'11" SpO2: 97% Weight: 153 lbs 02/06/2017 Blood Pressure 1: 138/90 Code: 8480-6 BMI: 31.5 Code: 18322-6 Heart Rate 1: 61 bpm Height: 4'11" SpO2: 98% Weight: 156 lbs 12/05/2016 Blood Pressure 1: 122/72 Code: 8480-6 Heart Rate 1: 59 bpm Height: 4'11" SpO2: 98% Weight: 11/28/2016 Blood Pressure 1: 154/86 Code: 8480-6 BMI: 31.3 Code: 16924-8 Heart Rate 1: 64 bpm Height: 4'11" SpO2: 94% Temperature: 36.2 (C) / 97.2 (F) Weight: 155 lbs 11/07/2016 Blood Pressure 1: 128/64 Code: 8480-6 BMI: 31.5 Code: 48258-1 Heart Rate 1: 59 bpm Height: 4'11" SpO2: 97% Weight: 156 lbs 08/15/2016 Blood Pressure 1: 110/62 Code: 8480-6 BMI: 31.5 Code: 65927-1 Heart Rate 1: 76 bpm Height: 4'11" SpO2: 97% Weight: 156 lbs 06/07/2016 Blood Pressure 1: 120/80 Code: 8480-6 BMI: 32.9 Code: 98393-1 Heart Rate 1: 63 bpm Height: 4'11" SpO2: 93% Temperature: 36.5 (C) / 97.7 (F) Weight: 163 lbs 03/15/2016 Blood Pressure 1: 90/42 Code: 8480-6 Heart Rate 1: 65 bpm SpO2: 94% 03/14/2016 Blood Pressure 1: 188/110 Code: 8480-6 Heart Rate 1: 68 bpm SpO2: 96% 02/22/2016 Blood Pressure 1: 158/80 Code: 8480-6 BMI: 32.7 Code: 11622-8 Heart Rate 1: 71 bpm Height: 4'11" SpO2: 95% Weight: 162 lbs 12/07/2015 Blood Pressure 1: 140/88 Code: 8480-6 BMI: 32.9 Code: 27372-2 Heart Rate 1: 99 bpm Height: 4'11" SpO2: 94% Temperature: 35.9 (C) / 96.6 (F) Weight: 163 lbs 11/24/2015 Blood Pressure 1: 144/78 Code: 8480-6 BMI: 33.7 Code: 36528-3 Heart Rate 1: 60 bpm Height: 4'11" SpO2: 98% Temperature: 36.6 (C) / 97.9 (F) Weight: 167 lbs 08/27/2015 Blood Pressure 1: 164/82 Code: 8480-6 BMI: 32.3 Code: 02130-7 Heart Rate 1: 60 bpm Height: 4'11" SpO2: 93% Weight: 160 lbs 08/10/2015 Blood Pressure 1: 130/60 Code: 8480-6 BMI: 32.5 Code: 07658-8 Heart Rate 1: 64 bpm Height: 4'11" SpO2: 97% Weight: 161 lbs 07/28/2015 Blood Pressure 1: 124/68 Code: 8480-6 BMI: 32.5 Code: 30840-9 Heart Rate 1: 69 bpm Height: 4'11" SpO2: 97% Weight: 161 lbs 06/11/2015 Blood Pressure 1: 148/80 Code: 8480-6 BMI: 32.9 Code: 42677-7 Heart Rate 1: 70 bpm Height: 4'11" SpO2: 94% Weight: 163 lbs 03/19/2015 Blood Pressure 1: 150/102 Code: 8480-6 Blood Pressure 2: 152/92 Code: 8480-6 BMI: 32.5 Code: 33783-0 Heart Rate 1: 71 bpm Height: 4'11" SpO2: 96% Weight: 161 lbs 01/07/2015 Blood Pressure 1: 126/84 Code: 8480-6 Heart Rate 1: 80 bpm Height: 4'11" 09/23/2014 Blood Pressure 1: 112/72 Code: 8480-6 BMI: 33.9 Code: 80808-1 Heart Rate 1: 72 bpm Height: 4'11" Weight: 168 lbs 08/05/2014 Blood Pressure 1: 140/86 Code: 8480-6 BMI: 33.3 Code: 00206-9 Height: 4'11" Weight: 165 lbs 06/23/2014 Blood Pressure 1: 132/70 Code: 8480-6 BMI: 32.9 Code: 36916-7 Heart Rate 1: 58 bpm Height: 4'11" Temperature: 36.0 (C) / 96.8 (F) Weight: 163 lbs 06/05/2014 Blood Pressure 1: 121/85 Code: 8480-6 BMI: 34.3 Code: 90129-6 Height: 4'11" Weight: 170 lbs 04/03/2014 Blood Pressure 1: 128/80 Code: 8480-6 Heart Rate 1: 88 bpm Weight: 167 lbs 03/07/2014 Blood Pressure 1: 122/82 Code: 8480-6 BMI: 33.9 Code: 22688-0 Heart Rate 1: 68 bpm Height: 4'11" Weight: 168 lbs 11/21/2013 Blood Pressure 1: 100/58 Code: 8480-6 BMI: 33.7 Code: 10220-4 Heart Rate 1: 64 bpm Height: 4'11" Weight: 167 lbs 09/24/2013 Blood Pressure 1: 148/88 Code: 8480-6 Heart Rate 1: 68 bpm Weight: 09/19/2013 Blood Pressure 1: 120/80 Code: 8480-6 BMI: 33.9 Code: 53040-3 Heart Rate 1: 80 bpm Height: 4'11" Temperature: 36.9 (C) / 98.5 (F) Weight: 168 lbs 08/05/2013 Blood Pressure 1: 128/80 Code: 8480-6 BMI: 34.3 Code: 18215-6 Heart Rate 1: 64 bpm Height: 4'11" Temperature: 36.2 (C) / 97.2 (F) Weight: 170 lbs 07/10/2013 Blood Pressure 1: 120/84 Code: 8480-6 BMI: 36.0 Code: 34256-8 Heart Rate 1: 90 bpm Height: 4'11" SpO2: 97% Temperature: 36.8 (C) / 98.2 (F) Weight: 178 lbs 06/03/2013 Blood Pressure 1: 136/94 Code: 8480-6 BMI: 34.7 Code: 68965-2 Heart Rate 1: 68 bpm Height: 4'11" Temperature: 36.7 (C) / 98.0 (F) Weight: 172 lbs 05/13/2013 Blood Pressure 1: 132/90 Code: 8480-6 Heart Rate 1: 68 bpm 05/07/2013 Blood Pressure 1: 168/100 Code: 8480-6 BMI: 34.3 Code: 40884-4 Heart Rate 1: 76 bpm Height: 4'11" Weight: 170 lbs 12/03/2012 Blood Pressure 1: 142/78 Code: 8480-6 BMI: 33.5 Code: 46176-7 Heart Rate 1: 76 bpm Height: 4'11" Weight: 166 lbs 09/24/2012 Blood Pressure 1: 116/70 Code: 8480-6 Heart Rate 1: 68 bpm Respiratory Rate: 16 bpm Temperature: 36.9 (C) / 98.4 (F) Weight: 162 lbs 09/10/2012 Blood Pressure 1: 116/80 Code: 8480-6 BMI: 33.7 Code: 70907-2 Heart Rate 1: 76 bpm Height: 4'11" [...] 1: 149/85 Code: 8480-6 BMI: 32.9 Code: 16756-9 Heart Rate 1: 79 bpm Height: 4'11" Weight: 164 lbs 05/03/2011 Blood Pressure 1: 122/79 Code: 8480-6 BMI: 30.8 Code: 33865-0 Heart Rate 1: 72 bpm Height: 5'1" Weight: 163 lbs 04/25/2011 Blood Pressure 1: 137/84 Code: 8480-6 BMI: 31.0 Code: 57827-5 Heart Rate 1: 63 bpm Height: 5'1" [...] days ago 02/15/2012 while visiting mother in [place] had uti and was put on pyridum [...] surg in december. then took trip to [facility] to see mother and has [...] Quality chronic 08/01/2011 states went shopping on [employer] over night without taking any of medications [...] data Encounters Encounter Performer Location Codes Date ([id number] EST. PATIENT, LEVEL III Diagnosis: Functional diarrhea[ICD10: K59.1] Melba Goldman MD, [facility] CPT- 4: 93389 01/29/2019 ([id number]) Miscellaneous no charge Diagnosis: Essential (primary) hypertension[ICD10: I10] Melba Goldman MD, [facility] CPT-4: 66419 11/16/2018 ([id number]) 05531 EST. PATIENT, LEVEL III Diagnosis: Essential (primary) hypertension[ICD10: I10] Shahida Goldman MD, [facility] CPT-4: 38780 11/13/2018 ([id number]) 72700 EST. PATIENT, LEVEL IV Diagnosis: Essential (primary) hypertension[ICD10: I10] Diagnosis: Mixed hyperlipidemia[ICD10: E78.2] Diagnosis: Hypothyroidism, unspecified[ICD10: E03.9] Shahida Goldman MD, [facility] CPT-4: 85232 10/30/2018 65710 EST. PATIENT, LEVEL III Diagnosis: Other mucopurulent conjunctivitis, bilateral[ICD10: H10.023] Diagnosis: Other allergic rhinitis[ICD10: J30.89] Shahida Goldman MD, [facility] CPT-4: 42236 10/08/2018 64024 EST. PATIENT, LEVEL III Diagnosis: Essential (primary) hypertension[ICD10: I10] Diagnosis: Generalized anxiety disorder[ICD10: F41.1] Isabelle Goldman MD, [facility] CPT-4: 00899 07/16/2018 ([id number]) 29278 EST. PATIENT, LEVEL III Diagnosis: Acute recurrent maxillary sinusitis[ICD10: J01.01] Diagnosis: Frequency of micturition[ICD10: R35.0] Diagnosis: Low back pain[ICD10: M54.5] Shahida Goldman MD, [facility] CPT-4: 24468 07/10/2018 ([id number]) 57441 EST. PATIENT, LEVEL III Diagnosis: Acute recurrent maxillary sinusitis[ICD10: J01.01] Shahida Goldman MD, [facility] CPT-4: 04549 05/28/2018 ([id number]) Miscellaneous no charge Diagnosis: Laceration without foreign body, left lower leg, subsequent encounter[ICD10: S81.812D] Diagnosis: Laceration without foreign body, right lower leg, subsequent encounter[ICD10: S81.811D] Isabelle Goldman MD, [facility] CPT-4: 84907 02/08/2018 33756 EST. PATIENT, LEVEL III Diagnosis: Cellulitis of left lower limb[ICD10: L03.116] Diagnosis: Cellulitis of right lower limb[ICD10: L03.115] Diagnosis: Laceration without foreign body, left lower leg, initial encounter[ICD10: S81.812A] Diagnosis: Laceration without foreign body, right lower leg, initial encounter[ICD10: S81.811A] Isabelle Goldman MD, [facility] CPT-4: 78978 02/07/2018 ([id number]) 93837 EST. PATIENT, LEVEL IV Diagnosis: Primary generalized (osteo)arthritis[ICD10: M15.0] Diagnosis: Acute recurrent maxillary sinusitis[ICD10: J01.01] Diagnosis: Low back pain[ICD10: M54.5] Diagnosis: Other allergic rhinitis[ICD10: J30.89] Diagnosis: Obstructive sleep apnea (adult) (pediatric)[ICD10: G47.33] Shahida Goldman MD, [facility] CPT-4: 46113 01/19/2018 53415 EST. PATIENT, LEVEL IV Diagnosis: Diarrhea, unspecified[ICD10: R19.7] Diagnosis: Generalized abdominal pain[ICD10: R10.84] Diagnosis: Other allergic rhinitis[ICD10: J30.89] Diagnosis: Other acute sinusitis[ICD10: J01.80] [facility] CPT- 4: 68956 09/12/2017 25291 EST. PATIENT, LEVEL III Diagnosis: Acute laryngopharyngitis[ICD10: J06.0] Diagnosis: Other allergic rhinitis[ICD10: J30.89] Diagnosis: Cough[ICD10: R05] Diagnosis: Wheezing[ICD10: R06.2] Isabelle Goldman MD, [facility] CPT-4: 25597 07/25/2017 ([id number]) 68873 EST. PATIENT, LEVEL IV Diagnosis: Acute recurrent maxillary sinusitis[ICD10: J01.01] Diagnosis: Cervicalgia[ICD10: M54.2] Diagnosis: Diarrhea, unspecified[ICD10: R19.7] Shahida Goldman MD, [facility] CPT-4: 43737 06/27/2017 ([id number]) 80490 EST. PATIENT, LEVEL III Diagnosis: Chronic maxillary sinusitis[ICD10: J32.0] Diagnosis: Gastro-esophageal reflux disease without esophagitis[ICD10: K21.9] Shahida Goldman MD, [facility] CPT-4: 26942 05/08/2017 ([id number]) 77650 EST. PATIENT, LEVEL III Diagnosis: Acute recurrent maxillary sinusitis[ICD10: J01.01] Shahida Goldman MD, [facility] CPT-4: 22207 03/14/2017 42639 EST. PATIENT, LEVEL IV Diagnosis: Epigastric pain[ICD10: R10.13] Diagnosis: Left upper quadrant pain[ICD10: R10.12] Diagnosis: Left lower quadrant pain[ICD10: R10.32] Isabelle Goldman MD, [facility] CPT-4: 77138 02/20/2017 ([id number]) 12793 EST. PATIENT, LEVEL IV Diagnosis: Generalized anxiety disorder[ICD10: F41.1] Diagnosis: Major depressive disorder, recurrent, moderate[ICD10: F33.1] Diagnosis: Left upper quadrant pain[ICD10: R10.12] Diagnosis: Epigastric pain[ICD10: R10.13] Diagnosis: Actinic keratosis[ICD10: L57.0] Melba Goldman MD, [facility] CPT-4: 38210 02/06/2017 ([id number]) 47527 EST. PATIENT, LEVEL III Diagnosis: Actinic keratosis[ICD10: L57.0] Diagnosis: Major depressive disorder, recurrent, moderate[ICD10: F33.1] Melba Goldman MD, [facility] CPT-4: 57219 12/05/2016 ([id number]) 85680 EST. PATIENT, LEVEL III Diagnosis: Acute recurrent maxillary sinusitis[ICD10: J01.01] Diagnosis: Dysuria[ICD10: R30.0] Shahida Goldman MD, [facility] CPT-4: 59890 11/28/2016 53445 EST. PATIENT, LEVEL IV Diagnosis: Other acute sinusitis[ICD10: J01.80] Diagnosis: Acute laryngopharyngitis[ICD10: J06.0] Diagnosis: Other allergic rhinitis[ICD10: J30.89] Isabelle Goldman MD, [facility] CPT- 4: 39001 08/15/2016 ([id number]) 58991 EST. PATIENT, LEVEL III Diagnosis: Acute recurrent maxillary sinusitis[ICD10: J01.01] Diagnosis: Low back pain[ICD10: M54.5] Shahida Goldman MD, [facility] CPT-4: 92899 06/07/2016 ([id number]) Miscellaneous no charge Diagnosis: Essential (primary) hypertension[ICD10: I10] Shahida Goldman MD, [facility] CPT-4: 28430 03/15/2016 20224 EST. PATIENT, LEVEL IV Diagnosis: Essential (primary) hypertension[ICD10: I10] Diagnosis: Headache[ICD10: R51] Diagnosis: Generalized anxiety disorder[ICD10: F41.1] Shahida Goldman MD, [facility] CPT-4: 57740 03/14/2016 09092 EST. PATIENT, LEVEL III Diagnosis: Laceration without foreign body, left lower leg, initial encounter[ICD10: S81.812A] Isabelle Goldman MD, [facility] CPT-4: 39977 02/22/2016 ([id number]) 17669 EST. PATIENT, LEVEL III Diagnosis: Acute recurrent maxillary sinusitis[ICD10: J01.01] Diagnosis: Cough[ICD10: R05] Diagnosis: Allergic rhinitis due to pollen[ICD10: J30.1] Shahida Goldman MD, [facility] CPT-4: 89702 12/07/2015 ([id number]) 84808 EST. PATIENT, LEVEL IV Diagnosis: Essential (primary) hypertension[ICD10: I10] Diagnosis: Acute recurrent maxillary sinusitis[ICD10: J01.01] Diagnosis: Generalized anxiety disorder[ICD10: F41.1] Diagnosis: Cervicalgia[ICD10: M54.2] Diagnosis: Generalized intra-abdominal and pelvic swelling, mass and lump[ICD10: R19.07] Melba Goldman MD, [facility] CPT-4: 43007 11/24/2015 32371 EST. PATIENT, LEVEL III Diagnosis: Other migraine, intractable, without status migrainosus[ICD10: G43.819] Isabelle Goldman MD, [facility] CPT-4: 03430 08/27/2015 70160 EST. PATIENT, LEVEL III Diagnosis: Acute recurrent maxillary sinusitis[ICD10: J01.01] Diagnosis: Candidal stomatitis[ICD10: B37.0] Diagnosis: Acute laryngopharyngitis[ICD10: J06.0] Isabelle Goldman MD, [facility] CPT- 4: 42402 08/10/2015 70806 EST. PATIENT, LEVEL III Diagnosis: Superficial foreign body of left hand, initial encounter[ICD10: S60.552A] Melba Goldman MD, [facility] CPT-4: 29683 07/28/2015 ([id number]) 47675 EST. PATIENT, LEVEL III Diagnosis: Essential (primary) hypertension[ICD10: I10] Diagnosis: Tinea cruris[ICD10: B35.6] Diagnosis: Abnormal levels of other serum enzymes[ICD10: R74.8] Shahida Goldman MD, [facility] CPT-4: 99788 06/11/2015 ([id number]) 40209 EST. PATIENT, LEVEL IV Diagnosis: ESSENTIAL HYPERTENSION[ICD9: 401.9] Diagnosis: Hypothyroid[ICD9: 244.9] Diagnosis: ALLERGIC RHINITIS[ICD9: 477.9] Diagnosis: Anxiety[ICD9: 300.00] Diagnosis: Sleep apnea[ICD9: 780.57] Shahida Goldman MD, [facility] CPT-4: 96691 03/19/2015 ([id number]) 50819 EST. PATIENT, LEVEL III Diagnosis: ACUTE SINUSITIS[ICD9: 461.9] Celi Goldman MD, [facility] CPT-4: 40744 01/07/2015 ([id number]) 99323 EST. PATIENT, LEVEL III Diagnosis: Conjunctivitis[ICD9: 372.30] Shahida Goldman MD, [facility] CPT-4: 12724 09/23/2014 82294 EST. PATIENT, LEVEL II Diagnosis: Noninfected skin tear of leg[ICD9: 891.0] Shahida Goldman MD, [facility] CPT-4: 21349 08/05/2014 ([id number]) 61263 EST. PATIENT, LEVEL III Diagnosis: Chronic maxillary sinusitis[ICD9: 473.0] Shahida Goldman MD, [facility] CPT-4: 86881 06/23/2014 26172 EST. PATIENT, LEVEL II Diagnosis: Headache[ICD9: 784.0] Shahida Goldman MD, [facility] CPT-4: 67717 06/05/2014 ([id number]) 97073 EST. PATIENT, LEVEL III Diagnosis: Abrasion of right leg[ICD9: 916.0] Diagnosis: Headache[ICD9: 784.0] Diagnosis: ALLERGIC RHINITIS[ICD9: 477.9] Shahida Goldman MD, [facility] CPT-4: 78708 04/03/2014 29345 EST. PATIENT, LEVEL II Diagnosis: Tinea corporis[ICD9: 110.5] Diagnosis: Exposure to scabies[ICD9: V01.89] Shahida Goldman MD, [facility] CPT- 4: 38471 03/07/2014 ([id number]) 78229 EST. PATIENT, LEVEL III Diagnosis: ESSENTIAL HYPERTENSION[SNOMED: 36548467] Diagnosis: OSTEOARTH NOS-UNSPEC[ICD9: 715.90] Diagnosis: Lumbago[ICD9: 724.2] Diagnosis: Cervicalgia[ICD9: 723.1] Shahida Goldman MD, [facility] CPT-4: 93648 11/21/2013 ([id number]) 84135 EST. PATIENT, LEVEL III Diagnosis: DEPRESSIVE DISORDER NEC[ICD9: 311] Diagnosis: Paronychia[ICD9: 681.9] Melba Goldman MD, [facility] CPT-4: 58264 09/24/2013 ([id number]) 38360 EST. PATIENT, LEVEL III Diagnosis: Paronychia[ICD9: 681.9] Diagnosis: Cellulitis[ICD9: 682.9] Melba Goldman MD, [facility] CPT-4: 41377 09/19/2013 ([id number]) 49601 EST. PATIENT, LEVEL III Diagnosis: Conjunctivitis[ICD9: 372.30] Diagnosis: Thrush[ICD9: 112.0] Shahida Goldman MD, [facility] CPT-4: 75336 08/05/2013 ([id number]) 95238 EST. PATIENT, LEVEL III Diagnosis: ACUTE MAXILLARY SINUSITIS[ICD9: 461.0] Diagnosis: COUGH[ICD9: 786.2] Diagnosis: Insomnia[ICD9: 780.52] Diagnosis: ESOPHAGEAL REFLUX[ICD9: 530.81] Melba Goldman MD, [facility] CPT-4: 47345 07/10/2013 ([id number]) Miscellaneous no charge Diagnosis: ESSENTIAL HYPERTENSION[SNOMED: 43492833] Melba Goldman MD, [facility] CPT-4: 15198 05/13/2013 ([id number]) 26623 EST. PATIENT, LEVEL IV Diagnosis: ESSENTIAL HYPERTENSION[SNOMED: 78136676] Diagnosis: HYPOTHYROIDISM[ICD9: 244.9] Diagnosis: OSTEOARTH NOS-UNSPEC[ICD9: 715.90] Melba Goldman MD, [facility] CPT- 4: 36607 05/07/2013 ([id number]) 49681 EST. PATIENT, LEVEL IV Diagnosis: Osteoarthritis[ICD9: 715.90] Diagnosis: Knee pain, bilateral[ICD9: 719.46] Diagnosis: Hip pain[ICD9: 719.45] Melba Goldman MD, [facility] CPT-4: 22510 12/03/2012 ([id number]) 40369 EST. PATIENT, LEVEL III Diagnosis: Thrush[ICD9: 112.0] Melba Goldman MD, [facility] CPT-4: 64345 09/24/2012 ([id number]) 93337 EST. PATIENT, LEVEL IV Diagnosis: ESSENTIAL HYPERTENSION[SNOMED: 06930166] Diagnosis: Thrush[ICD9: 112.0] Diagnosis: Sleep apnea[ICD9: 780.57] Melba Goldmna MD, [facility] CPT-4: 18743 09/10/2012 ([id number]) 16680 EST. PATIENT, LEVEL IV Diagnosis: Esophageal reflux[ICD9: 530.81] Diagnosis: Hypothyroid[ICD9: 244.9] Diagnosis: JOINT PAIN-MULT JOINTS[ICD9: 719.49] Diagnosis: ALLERGIC RHINITIS[ICD9: 477.9] Melba Goldman MD, [facility] CPT-4: 95932 08/08/2012 ([id number]) 65050 EST. PATIENT, LEVEL IV Diagnosis: Urinary frequency[ICD9: 788.41] Diagnosis: EDEMA[ICD9: 782.3] Diagnosis: HYPOTHYROIDISM[ICD9: 244.9] Diagnosis: Fatigue[ICD9: 780.79] Melba Goldman MD, [facility] CPT-4: 55796 02/15/2012 ([id number]) 87005 EST. PATIENT, LEVEL IV Diagnosis: Abdominal pain[ICD9: 789.00] Diagnosis: Fatigue[ICD9: 780.79] Diagnosis: Nausea[ICD9: 787.02] Melba Goldman MD [facility] CPT-4: 58935 11/10/2011 [id number] EST. PATIENT, LEVEL IV Diagnosis: ESSENTIAL HYPERTENSION[SNOMED: 35521838] Diagnosis: DIARRHEA[ICD9: 787.91] Diagnosis: DEPRESSIVE DISORDER NEC[ICD9: 311] Diagnosis: Irritable bowel disease[ICD9: 564.1] Melba Goldman MD, [facility] CPT- 4: 59115 08/01/2011 [id number] EST. PATIENT, LEVEL III Diagnosis: ACUTE SINUSITIS[ICD9: 461.9] Diagnosis: Cough[ICD9: 786.2] Shahida Goldman MD, [facility] CPT-4: 29520 07/14/2011 [id number] EST. PATIENT, LEVEL IV Diagnosis: VACCIN FOR INFLUENZA[ICD9: V04.81] Diagnosis: ESSENTIAL HYPERTENSION[SNOMED: 16262482] Diagnosis: GENERALIZED ANXIETY DISEASE[ICD9: 300.02] Diagnosis: SLEEP DISTURBANCES[ICD9: 780.50] Shahida Goldman MD, [facility] CPT- 4: 32138 05/23/2011 [id number] EST. PATIENT, LEVEL III Diagnosis: ACUTE SINUSITIS[ICD9: 461.9] Diagnosis: ALLERGIC RHINITIS[ICD9: 477.9] Diagnosis: Cough[ICD9: 786.2] [facility] CPT-4: 67271 05/03/2011 [id number] EST. PATIENT, LEVEL IV Diagnosis: ESSENTIAL HYPERTENSION[SNOMED: 81434768] Diagnosis: DEPRESSIVE DISORDER NEC[ICD9: 311] Diagnosis: Fatigue[ICD9: 780.79] Shahida Goldman [facility], [facility] CPT-4: 00431 04/25/2011 Plan of Care Planned Activity Notes [...] - this is a good probiotic. 01/29/2019 Patient Education: Patient Medication Summary Completed [...] acute concerns. 11/13/2018 Appointment: Shahida Manzo WPtel: [address] [place], [place] [phone] (15 min) Moderate 11/13/2018 Patient Education: Patient [...] call for acute concerns. Hyperlipidemia-check fasting labs Juribsxtihiykd-tcxthws-msozl labs 10/30/2018 Visit Plan: Hypertension - uncontrolled [...] call for acute concerns. Hyperlipidemia-check fasting labs Asuywqsllymrut-ntkpcay-hekiz labs 10/30/2018 Appointment: Shahida Manzo WPtel: [phone] [phone] (30 min) Complex 10/30/2018 Patient Education: Patient Medication Summary Completed 10/30/2018 Visit Plan: Conjunctivitis - rx for eye drops/lube sent electronically to the patient's pharmacy. The patient has been instructed to cleanse affected eye with warm washcloth, then place medication into affected eye four times daily. 10/08/2018 Appointment: Shahida Manzo WPtel: [phone] [phone] (30 min) Complex 10/08/2018 Patient Education: Patient Medication Summary Completed 10/08/2018 Appointment: Isabelle Orozco WPtel: [phone] [facility] (15 min) Moderate 07/30/2018 Visit Plan: [...] acute concerns. 07/16/2018 Appointment: Isabelle Orozco WPtel: [facility] (15 min) Moderate 07/16/2018 Patient Education: [...] of over-medication. 07/10/2018 Appointment: Shahida Manzo WPtel: [phone] [phone] (15 min) Moderate 07/10/2018 Patient Education: Patient Medication Summary Completed 07/10/2018 Patient Education: Back Pain Completed 07/10/2018 Visit Plan: Sinusitis - Pt has acute infection - pain in face, maxillary region, Pt informed to use decongestant, RX given to patient, sinus rinses also recommended. Call if symptoms do not show improvement. 05/28/2018 Appointment: Shahida Manzo WPtel: [phone] [phone] (30 min) Complex 05/28/2018 Patient Education: [...] acute concerns. 02/07/2018 Appointment: Isabelle Orozco WPtel: [facility] (15 min) Moderate 02/07/2018 Patient Education: Patient [...] fatigue 01/19/2018 Appointment: Shahida Manzo WPtel: [phone] [phone] (15 min) Moderate 01/19/2018 Patient Education: Patient [...] surrogate. 11/23/2017 Appointment: Isabel[facility]el[phone] [facility] - Annual Wellness Visit 11/23/2017 Patient [...] improvement. 09/12/2017 Appointment: Isabelle Orozco WPtel: [phone] [facility] (15 min) Moderate 09/12/2017 Patient Education: [...] spray. 07/25/2017 Appointment: [phone] (30 min) Complex 07/25/2017 Patient Education: [...] available 06/27/2017 Appointment: Shahida Manzo WPtel: [phone] [phone] (15 min) Moderate 06/27/2017 Patient Education: [...] improving. 05/08/2017 Appointment: Shahida Manzo WPtel: [phone] [phone] (15 min) Moderate 05/08/2017 Patient Education: [...] improvement. 03/14/2017 Appointment: Shahida Manzo WPtel: [phone] [phone] [place] (15 min) Moderate 03/14/2017 Patient Education: Patient Medication Summary Completed 03/14/2017 Appointment: Shahida Manzo WPtel: [phone] [phone] [place] (15 min) Moderate 02/21/2017 Visit [...] improving. 02/20/2017 Appointment: Isabelle Orozco WPtel: [phone] [facility] (30 min) Complex 02/20/2017 Patient Education: Patient Medication Summary Completed 02/20/2017 Visit Plan: Abdominal pain - liquid diet x 2 days, call on to let me know it if is not better - will prescribe a medication called bren Depression - uncontrolled - Pt has been [...] use 02/06/2017 App[facility]ment: [phone] (15 min) Moderate 02/06/2017 Patient Education: Patient [...] this patient. 12/05/2016 Appointment: Melba Goldman WPtel: [facility]6 [facility] Surgical Procedure 12/05/2016 Patient Education: Patient Medication Summary Completed 12/05/2016 Visit Plan: Sinusitis - Pt has acute infection - pain in face, maxillary region, Pt informed to use decongestant, RX given to patient, sinus rinses also recommended. Call if symptoms do not show improvement. Dysuria- culture urine 11/28/2016 Appointment: Shahida Manzo WPtel: [phone] [phone] (15 min) Moderate 11/28/2016 Patient Education: Patient [...] of control. 11/07/2016 Appointment: Isabelle Orozco WPtel: [facility] [facility] - Annual Wellness Visit 11/07/2016 Patient [...] allergy spray. 08/15/2016 Appointment: Isabelle Orozco WPtel: [facility] (15 min) Moderate 08/15/2016 Patient Education: [...] pain use. 06/07/2016 Appointment: Shahida Manzo WPtel: [facility]5 [phone] (10 min) Simple 06/07/2016 Patient Education: [...] office today 03/14/2016 Appointment: Shahida Manzo WPtel: [facility]5 [phone] (15 min) Moderate 03/14/2016 Patient Education: Patient Medication Summary Completed 03/14/2016 Care Plan: COMPLETE CBC AUTOMATED LOINC : 68659-3 Pending 03/14/2016 Visit Plan: Cellulitis - The patient was instructed in appropriate wound care. The patient was instructed to use the antibiotic ointment as per RX. The patient is to call for any change in symptoms, increase in size of the lesion, increase in pain. 02/22/2016 Appointment: Isabelle Orozco WPtel: [facility] (15 min) Moderate 02/22/2016 Patient Education: [...] pt to follow up with specialist at [place] [address] states - she needs to pursue treatment. Anxietly - medications unchanged. colonoscopy with dr. dai 11/24/2015 Appointment: Melba Goldman WPtel: [address] [place], [place] [address] (30 min) [facility] 11/24/2015 Patient Education: Patient Medication Summary Completed 11/24/2015 Patient Education: Obesity Completed 11/24/2015 Patient Education: Hypertension Completed 11/24/2015 Patient Education: .Cervicalgia Neck Pain Completed 11/24/2015 Care Plan: Referral Order SNOMED-CT : [id number] Ordered 11/24/2015 Visit Plan: Acute Migraine - [...] to monitor 06/11/2015 Appointment: Shahida Manzo WPtel: [address] [place], [place] [phone] (15 min) Moderate 06/11/2015 Patient Education: Patient [...] OFFICE Sleep apnea-patient needs new CPAP-will contact [facility] Pt reports that she uses [...] OFFICE Sleep apnea-patient needs new CPAP-will contact [facility] Pt reports that she uses her [...] OFFICE Sleep apnea-patient needs new CPAP-will contact [facility] 03/19/2015 Appointment: (15 min) Moderate 03/19/2015 [...] Patient Medication Summary Completed 01/07/2015 Patient Education: [facility] - Saving AutoInj - 18+ - [...] areas dry Exposure to scabies-RX sent to [facility] pharmacy. 03/07/2014 Appointment: Melba Goldman [facility]Ptel[phone] [place] rash 03/07/2014 Patient Education: Patient Medication [...] change in blood pressure readings at home. Qobfvae-akimeswoicl-pyhbsgbs duragesic patch-appt with Dr Ortiz for pain management 11/21/2013 Appointment: Shahida Manzo WPtel: [facility]2 [phone] Follow up 11/21/2013 Patient Education: Patient Medication Summary Completed 11/21/2013 Patient Education: Hypertension Completed 11/21/2013 Patient Education: .Cervicalgia Neck Pain Completed 11/21/2013 Appointment: Melba Goldman WPtel: [address] [place], [place] [phone] Other 11/19/2013 Appointment: Melba Goldman WPtel: [address] [place], [place] [phone] Follow up 11/06/2013 Appointment: Melba Goldman WPtel: [address] [place] [address] Lab Draw 10/15/2013 Patient Education: Patient Medication [...] AT BEDTIME 09/24/2013 Appointment: Shahida Manzo WPtel: [facility]3 [phone] Other 09/24/2013 Patient Education: Patient Medication Summary Completed 09/24/2013 Visit Plan: Paronychia/Cellulitis - continue with oral antibiotics as previously directed, return to clinic as previously directed, call for acute change in symptoms, worsening redness, warmth, discharge. 09/19/2013 Appointment: Melba Goldman [facility]Ptel[phone] [facility] 09/19/2013 Patient Education: Patient Medication Summary Completed 09/19/2013 Visit Plan: Conjunctivitis - rx for eye drops/lube sent electronically to the patient's pharmacy. The patient has been instructed to cleanse affected eye with warm washcloth, then place medication into affected eye four times daily. Thrush-refill nystatin-call if symptoms do not resolve 08/05/2013 Appointment: Shahida Manzo [facility]Ptel[phone] Sick 08/05/2013 Patient Education: Patient Medication Summary [...] improvement. 06/03/2013 Appointment: Melba Goldman WPtel: [phone] [facility] Follow up 06/03/2013 Patient Education: Patient Medication Summary Completed 06/03/2013 Patient Education: Hypertension Completed 06/03/2013 Appointment: Melba Goldman WPtel: [phone] [facility] Nurse Visit 05/13/2013 Patient Education: Patient [...] control. 05/07/2013 Appointment: Melba Goldman WPtel: [phone] [facility] Follow up 05/07/2013 Patient Education: Patient Medication Summary Completed 05/07/2013 Patient Education: Hypertension Completed 05/07/2013 Patient Education: Patient Medication Summary Completed 04/30/2013 Patient Education: Hypertension Completed 04/30/2013 Visit Plan: Arthritis- occasionally uncontrolled symptoms- recommend pt to take antiinflammatory as directed for pain control. Use tylenol for break through pain symptoms. 12/03/2012 Appointment: Melba Goldman WPtel: [phone] [facility] Follow up 12/03/2012 Patient Education: Patient [...] not resolve 09/24/2012 Appointment: Shahida Manzo WPtel: [phone] [facility] 09/24/2012 Patient Education: Patient Medication Summary Completed [...] with diflucan 09/10/2012 Appointment: Melba Goldman WPtel: [facility]5 [facility] Follow up 09/10/2012 Patient Education: Patient [...] pain symptoms. 08/08/2012 Appointment: Shahida Manzo WPtel: [facility] [place] [phone] Follow up 08/08/2012 Patient Education: Patient Medication Summary Completed 08/08/2012 Patient Education: Patient Medication Summary Completed 08/07/2012 Patient Education: Hypertension Completed 08/07/2012 Appointment: Melba Goldman WPtel: [facility]7 [facility] Lab Draw 02/16/2012 Patient Education: Patient [...] Needs labs. 02/15/2012 Appointment: Melba Goldman WPtel: [facility]0 [facility] Other 02/15/2012 Patient Education: Patient Medication Summary Completed 02/15/2012 Visit Plan: Abdominal pain - ultrasound tomorrow AM nothing to eat before the ultrasound from 11pm tonight bland diet. Nausea - worse with fatty foods, recommended low fat/bland diet, call if symptoms worsening. 11/10/2011 Appointment: Melba Goldman WPtel: [address] [place] [address] Other 11/10/2011 Patient Education: Patient Medication Summary [...] the stools. 08/01/2011 Appointment: Melba Goldman WPtel: [address] [place], [place] [phone] Other 08/01/2011 Patient Education: Patient Medication Summary Completed 08/01/2011 Patient Education: High Blood Pressure: Essential Hypertension Completed 08/01/2011 Visit Plan: Sinusitis - Pt has acute infection - pain in face, maxillary region, Pt informed to use decongestant, RX given to patient, sinus rinses also recommended. Call if symptoms do not show improvement. Cough- kishore zurita 07/14/2011 Appointment: Shahida Manzo WPtel: [facility]2 [phone] Other 07/14/2011 Patient Education: Patient Medication Summary Completed 07/14/2011 Visit Plan: Hypertension - continue with current medications, continue with no added salt diet. Pt has been encouraged to exercise daily. Refill bystolic-also sent rX. Will obtain renal artery ultrasound due to pat olga's resistent hypertension-she is currently on 3 medications [...] the office. 05/23/2011 Appointment: Shahida Manzo WPtel: [facility]1 [place] [address] [place] Other 05/23/2011 Patient Education: Patient Medication [...] cough med 05/03/2011 Appointment: Shahida Manzo WPtel: [facility] [place] [phone] [place] Other 05/03/2011 Patient Education: Patient Medication [...] her symptoms. 04/25/2011 Appointment: Shahida Manzo WPtel: [address] [place], [place] [phone] Other 04/25/2011 Patient Education: Patient Medication Summary [...] OFFICE Sleep apnea-patient needs new CPAP-will contact [facility] Pt reports that she uses [...] OFFICE Sleep apnea-patient needs new CPAP-will contact [facility] Pt reports that she uses her [...] OFFICE Sleep apnea-patient needs new CPAP-will contact [facility] patient LOSARTAN 50MG DAILY MONITOR BLOOD [...] call for acute concerns. Hyperlipidemia-check fasting labs Kvhxunifspfurl-otycofh-dzpbm labs LOSARTAN 50MG DAILY MONITOR BLOOD PRESSURE [...] call for acute concerns. Hyperlipidemia-check fasting labs Seicdvihsmziwt-rgqleml-mobgy labs . Sinusitis - Pt has acute [...] 1/2 pill m/w/f and 1 full pill tu/th/sat/sun - do [...] 1/2 pill m/w/ and 1 full pill //mon/sun - do this x 1 week then [...] not show improvement. Gentamicin nasal spray to [facility] Increase prilosec to twice daily . Sinusitis [...] areas dry Exposure to scabies-RX sent to [facility] pharmacy. rocephin/kenalog . Sinusitis - Pt [...] change in blood pressure readings at home. Icmtuhi-dsqbicsgape-tdjxbapq duragesic patch-appt with Dr Ortiz for pain [...]
--- OUTSIDE RECORDS SUMMARY | 2019-03-08 12:25 | XMS REPORT | CCD ---
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 Name Role Phone PP Unavailable CCM Unavailable Summary Purpose Interface Exchange Insurance Providers Payer name Policy type / Coverage type Covered republican ID Effective Begin Date Effective End Date [employer] Medicare Part B [id number] Unknown Family history Son Diagnosis Age At Onset Crohn's disease Unknown Brother Diagnosis Age At Onset Cardiovascular disease Unknown Mother Diagnosis Age At Onset Hypertension Unknown Father Diagnosis Age At Onset Cardiovascular disease Unknown Social History Social History Element Codes Description Effective Dates Marital status Unknown 04/22/2011 Number of children Unknown 3 1 son -Crohns 04/22/[address]: 590288646 Nonsmoker 04/22/2011 Allergies, Adverse Reactions, Alerts Substance Reaction Codes Entered Date Inactivated Date Status * NO KNOWN FOOD ALLERGIES Unknown 05/19/2011 No Inactive Date Active * NO KNOWN DRUG ALLERGIES Unknown 04/22/2011 No Inactive Date Active Past Medical History Illness Codes Condition Status Onset Date Resolved Date Essential (primary) hypertension ICD-9: 401.1 ICD-10: I10 [...] Problems Condition Codes Effective Dates Condition Status Essential (primary) hypertension ICD-9: 401.1 ICD-10: I10 [...] Start Date Stop Date Status Fill Instructions hydrocodone 10 mg-acetaminophen 325 mg tablet RxNorm: 500922 Tablet(s) PO TAKE ONE TO TWO TABLETS BY MOUTH EVERY 6 HOURS NEEDED FOR PAIN 01/17/2019 01/31/2019 Active trazodone 50 mg tablet RxNorm: 455943 TAKE ONE AND ONE-HALF (1 1/2) TABLETS BY MOUTH AT BEDTIME. MAY INCREASE TO 2 TABLETS AT BEDTIME NEEDED 12/13/2018 04/01/2019 Active losartan 100 mg tablet RxNorm: 792371 1 Tablet(s) PO daily 11/13/2018 05/11/2019 Active hydrocodone 10 mg-acetaminophen 325 mg tablet RxNorm: 415330 Tablet(s) PO TAKE ONE TO TWO TABLETS BY MOUTH EVERY 6 HOURS NEEDED FOR PAIN 11/13/2018 11/27/2018 Inactive Synthroid 112 mcg tablet RxNorm: 972564 1 Tablet(s) PO daily 11/01/2018 04/29/2019 Active Brand name only! Dosage change! Synthroid 112 mcg tablet RxNorm: 055641 1 Tablet(s) PO daily 11/01/2018 10/31/2018 Inactive Brand name only! Dosage change! losartan 50 mg tablet RxNorm: 232595 1 Tablet(s) PO daily 10/30/2018 11/12/2018 Inactive Tamiflu 75 mg capsule RxNorm: 694526 1 Capsule(s) PO daily 10/30/2018 11/08/2018 Inactive Synthroid 100 mcg tablet RxNorm: 524392 1 Tablet(s) PO daily 10/30/2018 10/31/2018 Inactive Brand name only! Lexapro 20 mg tablet RxNorm: 844338 TAKE ONE AND ONE-HALF TABLET BY MOUTH DAILY 10/23/2018 10/17/2019 Active alprazolam 0.25 mg tablet RxNorm: 058921 1 Tablet(s) PO TID as needed 10/10/2018 01/07/2019 Inactive polymyxin B sulfate 10,000 unit-trimethoprim 1 mg/mL eye drops RxNorm: 037564 2 Drop(s) ophthalmic (eye) QID 10/08/2018 10/14/2018 Inactive hydrocodone 10 mg-acetaminophen 325 mg tablet RxNorm: 086573 Tablet(s) PO TAKE ONE TO TWO TABLETS BY MOUTH EVERY 6 HOURS NEEDED FOR PAIN 09/11/2018 09/25/2018 Inactive piroxicam 20 mg capsule RxNorm: 445669 TAKE ONE CAPSULE BY MOUTH DAILY 08/09/2018 01/05/2019 Inactive trazodone 50 mg tablet RxNorm: 449209 TAKE ONE AND ONE-HALF (1 1/2) TABLET BY MOUTH AT BEDTIME. MAY INCREASE TO 2 TABLETS AT BEDTIME NEEDED 08/02/2018 11/19/2018 Inactive Nexium 40 mg capsule,delayed release RxNorm: 435833 TAKE ONE CAPSULE BY MOUTH TWICE A DAY 07/23/2018 11/19/2018 Inactive Bystolic 5 mg tablet RxNorm: 474818 1 Tablet(s) PO daily to take with 10 mg daily to equal 15mg daily 07/17/2018 10/29/2018 Inactive alprazolam 0.25 mg tablet RxNorm: 786608 1 Tablet(s) PO TID as needed 07/16/2018 10/29/2018 Inactive hydrocodone 10 mg-acetaminophen 325 mg tablet RxNorm: 179890 Tablet(s) PO TAKE ONE TO TWO TABLETS BY MOUTH EVERY 6 HOURS NEEDED FOR PAIN 07/10/2018 07/24/2018 Inactive prednisone 20 mg tablet RxNorm: 862370 1 Tablet(s) PO BID 07/10/2018 07/14/2018 Inactive Phenergan with Codeine Syrup RxNorm: 5-10 Milliliter(s) PO Q6 PRN 06/28/2018 No Stop Date Active prednisone 20 mg tablet RxNorm: 614975 2 Tablet(s) PO daily 05/31/2018 06/04/2018 Inactive prednisone 20 mg tablet RxNorm: 210127 2 Tablet(s) PO daily 05/31/2018 05/30/2018 Inactive ceftriaxone 500 mg solution for injection RxNorm: 6137469 Inj 05/28/2018 05/28/2018 Inactive doxycycline hyclate 100 mg tablet RxNorm: 3571972 1 Tablet(s) PO BID 05/28/2018 06/06/2018 Inactive Kenalog 40 mg/mL suspension for injection RxNorm: 8116946 Milliliter(s) Inj 05/28/2018 05/28/2018 Inactive hydrocodone 10 mg-acetaminophen 325 mg tablet RxNorm: 703596 Tablet(s) PO TAKE ONE TO TWO TABLETS BY MOUTH EVERY 6 HOURS NEEDED FOR PAIN 05/09/2018 05/23/2018 Inactive alprazolam 0.25 mg tablet RxNorm: 148287 1 Tablet(s) PO daily as needed 04/25/2018 07/15/2018 Inactive Bystolic 10 mg tablet RxNorm: 160593 TAKE ONE TABLET BY MOUTH DAILY 04/16/2018 09/12/2018 Inactive hydrocodone 10 mg-acetaminophen 325 mg tablet RxNorm: 283450 Tablet(s) PO TAKE ONE TO TWO TABLETS BY MOUTH EVERY 6 HOURS NEEDED FOR PAIN 03/06/2018 03/20/2018 Inactive trazodone 50 mg tablet RxNorm: 469979 TAKE ONE AND ONE-HALF (1 1/2) TABLET BY MOUTH AT BEDTIME. MAY INCREASE TO 2 TABLETS AT BEDTIME NEEDED 02/23/2018 06/12/2018 Inactive mupirocin 2 % topical ointment RxNorm: 652870 1 TOP BID 02/09/2018 05/27/2018 Inactive Zofran 4 mg tablet RxNorm: 603054 1 Tablet(s) PO TID as needed 02/08/2018 No Stop Date Active Keflex 500 mg capsule RxNorm: 048696 1 Capsule(s) PO TID 02/07/2018 02/13/2018 Inactive alprazolam 0.25 mg tablet RxNorm: 716140 1 Tablet(s) PO daily as needed 01/24/2018 07/09/2018 Inactive hydrocodone 10 mg-acetaminophen 325 mg tablet RxNorm: 237447 Tablet(s) PO TAKE ONE TO TWO TABLETS BY MOUTH EVERY 6 HOURS NEEDED FOR PAIN 01/19/2018 02/02/2018 Inactive hydrochlorothiazide 25 mg tablet RxNorm: 054633 Tablet(s) TAKE ONE TABLET BY MOUTH DAILY 01/19/2018 01/19/2018 Inactive Kenalog 40 mg/mL suspension for injection RxNorm: 4573890 1 Milliliter(s) Inj 01/19/2018 01/19/2018 Inactive piroxicam 20 mg capsule RxNorm: 090712 1 Capsule(s) PO daily 01/19/2018 07/17/2018 Inactive D/C ORDER FOR HCTZ ceftriaxone 500 mg solution for injection RxNorm: 8552450 500 Milligram(s) Inj 01/19/2018 01/19/2018 Inactive Nexium 40 mg capsule,delayed release RxNorm: 337553 TAKE ONE CAPSULE BY MOUTH TWICE A DAY 01/18/2018 04/17/2018 Inactive Nexium 40 mg capsule,delayed release RxNorm: 228064 TAKE ONE CAPSULE BY MOUTH TWICE A DAY 01/15/2018 04/14/2018 Inactive ciprofloxacin 0.3 % eye drops RxNorm: 788589 2 Drop(s) ophthalmic (eye) Q2H while awake x 2 days, then Q4H x 5 days 11/23/2017 05/27/2018 Inactive Keflex 500 mg capsule RxNorm: 228126 1 Capsule(s) PO TID 11/23/2017 11/29/2017 Inactive hydrocodone 10 mg-acetaminophen 325 mg tablet RxNorm: 568617 Tablet(s) PO TAKE ONE TO TWO TABLETS BY MOUTH EVERY 6 HOURS NEEDED FOR PAIN 10/30/2017 11/13/2017 Inactive Augmentin 500 mg-125 mg tablet RxNorm: 892325 1 Tablet(s) PO TID 10/27/2017 11/05/2017 Inactive alprazolam 0.25 mg tablet RxNorm: 688200 1 Tablet(s) PO daily as needed 10/26/2017 04/24/2018 Inactive trazodone 50 mg tablet RxNorm: 541005 TAKE ONE AND ONE-HALF (1 1/2) TABLET BY MOUTH AT BEDTIME. MAY INCREASE TO 2 TABLETS AT BEDTIME NEEDED 09/25/2017 02/03/2018 Inactive Lexapro 20 mg tablet RxNorm: 593179 TAKE ONE AND ONE-HALF TABLET BY MOUTH DAILY 09/15/2017 09/09/2018 Inactive Flagyl 500 mg tablet RxNorm: 965267 1 Tablet(s) PO TID 09/12/2017 09/21/2017 Inactive promethazine 25 mg tablet RxNorm: 344182 1 Tablet(s) PO TID as needed nausea and vomitting THIS WILL MAKE YOU SLEEPY 09/12/2017 11/08/2017 Inactive Keflex 500 mg capsule RxNorm: 709636 1 Capsule(s) PO QID 08/25/2017 08/31/2017 Inactive [SAVINGS FOR UNINSURED PATIENTS -- BIN:[id number], PCN: [id number], Group: [id number], ID# [id number], Process claim through [employer], for questions: . THIS IS NOT INSURANCE.] alprazolam 0.25 mg tablet RxNorm: 439952 1 Tablet(s) PO daily as needed 07/31/2017 04/24/2018 Inactive prednisone 20 mg tablet RxNorm: 379237 2 Tablet(s) PO daily 07/25/2017 07/29/2017 Inactive Augmentin 500 mg-125 mg tablet RxNorm: 408042 1 Tablet(s) PO TID 07/25/2017 08/03/2017 Inactive trazodone 50 mg tablet RxNorm: 381906 TAKE ONE AND ONE-HALF (1 1/2) TABLET BY MOUTH AT BEDTIME. MAY INCREASE TO 2 TABLETS AT BEDTIME NEEDED 06/30/2017 09/03/2017 Inactive Bystolic 10 mg tablet RxNorm: 298506 TAKE ONE TABLET BY MOUTH DAILY 06/30/2017 2017 Inactive hydrochlorothiazide 25 mg tablet RxNorm: 035649 TAKE ONE TABLET BY MOUTH DAILY 06/30/2017 01/18/2018 Inactive Flagyl 500 mg tablet RxNorm: 735730 1 Tablet(s) PO TID 06/27/2017 07/03/2017 Inactive Phenergan with Codeine Syrup RxNorm: 5-10 Milliliter(s) PO Q6 PRN 06/27/2017 11/15/2017 Inactive Levaquin 500 mg tablet RxNorm: 706893 1 Tablet(s) PO daily 06/27/2017 07/03/2017 Inactive Kenalog 40 mg/mL suspension for injection RxNorm: 8876133 1 Milliliter(s) Inj 06/27/2017 06/27/2017 Inactive Nexium 40 mg capsule,delayed release RxNorm: 660608 1 Capsule(s) PO BID TAKE ONE CAPSULE BY MOUTH BID 05/22/2017 09/18/2017 Inactive Nexium 40 mg capsule,delayed release RxNorm: 197454 1 Capsule(s) PO BID TAKE ONE CAPSULE BY MOUTH BID 05/22/2017 05/21/2017 Inactive hydrocodone 10 mg-acetaminophen 325 mg tablet RxNorm: 356663 Tablet(s) PO TAKE ONE TO TWO TABLETS BY MOUTH EVERY 6 HOURS NEEDED FOR PAIN 05/17/2017 06/15/2017 Inactive Nexium 40 mg capsule,delayed release RxNorm: 843703 Capsule(s) TAKE ONE CAPSULE BY MOUTH BID 05/17/2017 05/21/2017 Inactive alprazolam 0.25 mg tablet RxNorm: 611647 1 Tablet(s) PO daily as needed 05/03/2017 07/01/2017 Inactive Levaquin 500 mg tablet RxNorm: 416005 1 Tablet(s) PO daily 04/20/2017 04/26/2017 Inactive clotrimazole 1 % topical cream RxNorm: 296181 1 Application TOP BID 04/20/2017 11/07/2017 Inactive Kenalog 40 mg/mL suspension for injection RxNorm: 6530332 Milliliter(s) Inj 04/20/2017 04/20/2017 Inactive nystatin 100,000 unit/gram topical powder RxNorm: 239201 1 Gram(s) APPLY TOPICALLY TWO TIMES A DAY 04/10/2017 07/08/2017 Inactive trazodone 50 mg tablet RxNorm: 657393 TAKE ONE AND ONE-HALF (1 1/2) TABLET BY MOUTH AT BEDTIME. MAY INCREASE TO 2 TABLETS AT BEDTIME NEEDED 03/28/2017 06/23/2017 Inactive Augmentin 875 mg-125 mg tablet RxNorm: 162082 1 Tablet(s) PO BID 03/14/2017 03/20/2017 Inactive Kenalog 40 mg/mL suspension for injection RxNorm: 4258180 1 Milliliter(s) Inj 03/14/2017 03/14/2017 Inactive Lexapro 20 mg tablet RxNorm: 720727 1.5 Tablet(s) PO daily 03/08/2017 03/07/2017 Inactive Lexapro 20 mg tablet RxNorm: 033719 1.5 Tablet(s) PO daily 03/08/2017 07/05/2017 Inactive alprazolam 0.25 mg tablet RxNorm: 600989 1 Tablet(s) PO daily as needed 02/23/2017 04/23/2017 Inactive (Response to an electronic controlled substance refill request - RxReferenceNumber: [id number]) Flagyl 500 mg tablet RxNorm: 861294 1 Tablet(s) PO TID 02/20/2017 03/01/2017 Inactive promethazine 25 mg tablet RxNorm: 803611 1 Tablet(s) PO TID as needed nausea 02/20/2017 03/01/2017 Inactive Cipro 500 mg tablet RxNorm: 642695 1 Tablet(s) PO BID 02/20/2017 03/01/2017 Inactive Flagyl 500 mg tablet RxNorm: 990186 1 Tablet(s) PO TID 02/09/2017 02/15/2017 Inactive Trintellix 10 mg tablet RxNorm: 5159297 1 Tablet(s) PO QAM 02/06/2017 03/07/2017 Inactive Efudex 5 % topical cream RxNorm: 840771 1 Application TOP BID use on skin spot on nose 02/06/2017 02/15/2017 Inactive Bystolic 10 mg tablet RxNorm: 780532 TAKE ONE TABLET BY MOUTH DAILY 02/03/2017 06/02/2017 Inactive Imitrex 50 mg tablet RxNorm: 578520 TAKE ONE TABLET BY MOUTH EVERY 8 HOURS NEEDED MAY REPEAT IN 1 HOUR OF INITIAL DOSE. DISCONTINUE FIORICET 12/22/2016 02/19/2017 Inactive Nexium 40 mg capsule,delayed release RxNorm: 909904 TAKE ONE CAPSULE BY MOUTH EVERY DAY 12/21/2016 05/16/2017 Inactive Lexapro 20 mg tablet RxNorm: 099438 Tablet(s) TAKE ONE TABLET BY MOUTH DAILY 12/05/2016 02/05/2017 Inactive Augmentin 875 mg-125 mg tablet RxNorm: 774872 1 Tablet(s) PO BID 11/28/2016 12/04/2016 Inactive ceftriaxone 500 mg solution for injection RxNorm: 5713723 1 Milliliter(s) Inj 11/28/2016 11/28/2016 Inactive hydrocodone 10 mg-acetaminophen 325 mg tablet RxNorm: 738404 Tablet(s) PO TAKE ONE TO TWO TABLETS BY MOUTH EVERY 6 HOURS NEEDED FOR PAIN 11/28/2016 05/16/2017 Inactive (Appended: Controlled substance eRx refill - RxReferenceNumber: [id number]) prednisone 20 mg tablet RxNorm: 770854 2 Tablet(s) PO daily 11/28/2016 12/02/2016 Inactive trazodone 50 mg tablet RxNorm: 598716 Tablet(s) TAKE 1 AND 1/2 TABLETS EVERY NIGHT AT BEDTIME , MAY INCREASE TO 2 TABLETS AT BEDTIME NEEDED 11/21/2016 11/20/2016 Inactive Synthroid 100 mcg tablet RxNorm: 543236 1 Tablet(s) PO daily 11/21/2016 05/19/2017 Inactive Brand name only! trazodone 50 mg tablet RxNorm: 132188 TAKE 1 AND 1/2 TABLETS EVERY NIGHT AT BEDTIME , MAY INCREASE TO 2 TABLETS AT BEDTIME NEEDED 11/21/2016 08/01/2018 Inactive Synthroid 100 mcg tablet RxNorm: 277120 1 Tablet(s) PO daily TAKE ONE TABLET BY MOUTH DAILY 11/08/2016 11/20/2016 Inactive ceftriaxone 500 mg solution for injection RxNorm: 7942492 Inj 11/07/2016 11/07/2016 Inactive Kenalog 40 mg/mL suspension for injection RxNorm: 0035324 Milliliter(s) Inj 11/07/2016 11/07/2016 Inactive Xanax 0.25 mg tablet RxNorm: 918578 1 Tablet(s) PO daily as needed 10/31/2016 05/02/2017 Inactive alprazolam 0.25 mg tablet RxNorm: 883610 1 Tablet(s) PO daily as needed 10/21/2016 12/18/2016 Inactive (Response to an electronic controlled substance refill request - RxReferenceNumber: [id number]) hydrochlorothiazide 25 mg tablet RxNorm: 487024 TAKE ONE TABLET BY MOUTH DAILY 10/11/2016 04/08/2017 Inactive Xanax 0.25 mg tablet RxNorm: 495341 1 Tablet(s) PO daily as needed 08/23/2016 10/19/2016 Inactive Flonase Allergy Relief 50 mcg/actuation nasal spray,suspension RxNorm: 3269910 1 [place] NASAL daily 08/15/2016 No Stop Date Active amoxicillin 500 mg capsule RxNorm: 563076 1 Capsule(s) PO TID 08/15/2016 08/24/2016 Inactive Bystolic 10 mg tablet RxNorm: 740535 TAKE ONE TABLET BY MOUTH DAILY 08/01/2016 12/28/2016 Inactive trazodone 50 mg tablet RxNorm: 927096 TAKE 1 AND 1/2 TABLETS EVERY NIGHT AT BEDTIME , MAY INCREASE TO 2 TABLETS AT BEDTIME NEEDED 07/25/2016 11/11/2016 Inactive alprazolam 0.25 mg tablet RxNorm: 118522 1 Tablet(s) PO daily as needed 07/25/2016 08/22/2016 Inactive (Response to an electronic controlled substance refill request - RxReferenceNumber: [id number]) Imitrex 50 mg tablet RxNorm: 002378 1 Tablet(s) PO Q8 as needed may repeat x1 dose in 1 hour of inital dose. 07/13/2016 No Stop Date Active Lexapro 20 mg tablet RxNorm: 953699 TAKE 1/2 TABLET BY MOUTH DAILY FOR 10 DAYS, THEN TAKE ONE TABLET BY MOUTH DAILY 06/27/2016 11/23/2016 Inactive Synthroid 100 mcg tablet RxNorm: 777615 TAKE ONE TABLET BY MOUTH DAILY 06/20/2016 11/07/2016 Inactive Augmentin 500 mg-125 mg tablet RxNorm: 967801 1 Tablet(s) PO TID 06/07/2016 06/13/2016 Inactive hydrocodone 10 mg-acetaminophen 325 mg tablet RxNorm: 106540 Tablet(s) PO TAKE ONE TO TWO TABLETS BY MOUTH EVERY 6 HOURS NEEDED FOR PAIN 06/07/2016 11/27/2016 Inactive (Appended: Controlled substance eRx refill - RxReferenceNumber: [id number]) hydrochlorothiazide 25 mg tablet RxNorm: 189441 TAKE ONE TABLET BY MOUTH DAILY 03/14/2016 09/09/2016 Inactive Edarbi 40 mg tablet RxNorm: 0798766 1 Tablet(s) PO daily 03/14/2016 06/06/2016 Inactive trazodone 50 mg tablet RxNorm: 694370 Tablet(s) TAKE 1 AND 1/2 TABLET AT BEDTIME. MAY INCREASE TO 2 TABLETS IF NECESSARY 02/25/2016 07/05/2016 Inactive Imitrex 50 mg tablet RxNorm: 517818 1 Tablet(s) PO Q8 as needed may repeat x1 dose in 1 hour of inital dose. 02/25/2016 07/12/2016 Inactive dc fioricet Xanax 0.25 mg tablet RxNorm: 286624 1 Tablet(s) PO daily as needed 02/24/2016 07/21/2016 Inactive mupirocin 2 % topical ointment RxNorm: 709597 1 TOP BID 02/22/2016 11/08/2017 Inactive Bactrim DS 800 mg-160 mg tablet RxNorm: 354067 1 Tablet(s) PO BID 02/22/2016 03/02/2016 Inactive Fioricet 50 mg-325 mg-40 mg tablet RxNorm: 585566 Tablet(s) TAKE ONE TABLET BY MOUTH EVERY 4 HOURS NEEDED FOR headache 02/12/2016 02/24/2016 Inactive (Response to an electronic controlled substance refill request - RxReferenceNumber: [id number]) Fioricet 50 mg-325 mg-40 mg tablet RxNorm: 474411 Tablet(s) TAKE ONE TABLET BY MOUTH EVERY 4 HOURS NEEDED FOR headache 02/12/2016 02/11/2016 Inactive (Response to an electronic controlled substance refill request - RxReferenceNumber: [id number]) Nexium 40 mg capsule,delayed release RxNorm: 984206 TAKE ONE CAPSULE BY MOUTH EVERY DAY 02/01/2016 10/27/2016 Inactive Bystolic 10 mg tablet RxNorm: 860625 Tablet(s) TAKE ONE TABLET BY MOUTH DAILY 01/06/2016 07/03/2016 Inactive Xanax 0.25 mg tablet RxNorm: 847118 1 Tablet(s) PO daily as needed 12/28/2015 02/23/2016 Inactive Levaquin 500 mg tablet RxNorm: 018905 1 Tablet(s) PO daily take a probiotic daily 12/14/2015 02/11/2016 Inactive Levaquin 500 mg tablet RxNorm: 725267 1 Tablet(s) PO daily take a probiotic daily 12/14/2015 12/13/2015 Inactive prednisone 20 mg tablet RxNorm: 515278 1 Tablet(s) PO BID 12/07/2015 12/13/2015 Inactive Augmentin 875 mg-125 mg tablet RxNorm: 267735 1 Tablet(s) PO BID 12/07/2015 12/13/2015 Inactive ceftriaxone 500 mg solution for injection RxNorm: 8326291 Inj 12/07/2015 12/07/2015 Inactive Phenergan with Codeine Syrup RxNorm: 5-10 Milliliter(s) PO Q6 PRN 12/07/2015 06/26/2017 Inactive alprazolam 0.25 mg tablet RxNorm: 723883 1 Tablet(s) PO daily as needed 11/27/2015 12/25/2015 Inactive (Response to an electronic controlled substance refill request - RxReferenceNumber: [id number]) trazodone 50 mg tablet RxNorm: 362477 TAKE 1 AND 1/2 TABLET AT BEDTIME FOR 2 WEEKS, MAY INCREASE TO 2 TABLETS IF NECESSARY AFTER THAT 11/26/2015 02/24/2016 Inactive ceftriaxone 500 mg solution for injection RxNorm: 2965997 Milliliter(s) Inj 11/24/2015 11/24/2015 Inactive prednisone 10 mg tablet RxNorm: 109951 3 Tablet(s) PO daily 11/24/2015 11/28/2015 Inactive cefdinir 300 mg capsule RxNorm: 110259 1 Capsule(s) PO BID 11/24/2015 11/30/2015 Inactive Kenalog 40 mg/mL suspension for injection RxNorm: 8058055 1 Milliliter(s) Inj 11/24/2015 11/24/2015 Inactive Lexapro 20 mg tablet RxNorm: 969063 TAKE 1/2 TABLET BY MOUTH DAILY FOR 10 DAYS, THEN TAKE ONE TABLET BY MOUTH DAILY 11/23/2015 05/20/2016 Inactive Lipitor 10 mg tablet RxNorm: 708057 Tablet(s) TAKE ONE TABLET BY MOUTH EVERY DAY 10/26/2015 11/06/2016 Inactive Norvasc 10 mg tablet RxNorm: 749896 Tablet(s) PO TAKE ONE TABLET BY MOUTH EVERY DAY 10/26/2015 01/18/2018 Inactive hydrochlorothiazide 25 mg tablet RxNorm: 930894 TAKE ONE TABLET BY MOUTH DAILY 10/20/2015 01/17/2016 Inactive promethazine 25 mg/mL injection solution RxNorm: 871625 Milliliter(s) Inj 08/27/2015 08/27/2015 Inactive ketorolac 60 mg/2 mL intramuscular solution RxNorm: 080810 Milliliter(s) IM 08/27/2015 08/27/2015 Inactive alprazolam 0.25 mg tablet RxNorm: 873464 1 Tablet(s) PO daily as needed 08/27/2015 10/25/2017 Inactive (Response to an electronic controlled substance refill request - RxReferenceNumber: [id number]) Lexapro 20 mg tablet RxNorm: 622010 TAKE 1/2 TABLET BY MOUTH DAILY FOR 10 DAYS, THEN TAKE ONE TABLET BY MOUTH DAILY 08/13/2015 11/10/2015 Inactive Flonase 50 mcg/actuation nasal spray,suspension RxNorm: 265525 PLACE 1 SPRAY IN EACH NOSTRIL DAILY 08/13/2015 02/08/2016 Inactive Augmentin 500 mg-125 mg tablet RxNorm: 041252 1 Tablet(s) PO TID 08/10/2015 08/16/2015 Inactive Kenalog 40 mg/mL suspension for injection RxNorm: 1870690 Milliliter(s) Inj 08/10/2015 08/10/2015 Inactive ceftriaxone 500 mg solution for injection RxNorm: 9922990 Inj 08/10/2015 08/10/2015 Inactive nystatin 100,000 unit/mL oral suspension RxNorm: 162765 4 Milliliter(s) PO QID 08/10/2015 08/16/2015 Inactive trazodone 50 mg tablet RxNorm: 279017 TAKE 1 AND 1/2 TABLET AT BEDTIME FOR 2 WEEKS, MAY INCREASE TO 2 TABLETS IF NECESSARY AFTER THAT 07/31/2015 11/25/2015 Inactive ceftriaxone 500 mg solution for injection RxNorm: 0542945 1 Milliliter(s) Inj 07/28/2015 07/28/2015 Inactive Bactrim DS 800 mg-160 mg tablet RxNorm: 333623 1 Tablet(s) PO BID 07/28/2015 08/06/2015 Inactive Bactroban 2 % topical ointment RxNorm: 011351 1 Application TOP BID 07/28/2015 08/06/2015 Inactive Diflucan 150 mg tablet RxNorm: 023518 1 Tablet(s) PO daily 06/11/2015 06/17/2015 Inactive clotrimazole 1 % topical cream RxNorm: 215560 1 Application TOP BID 06/11/2015 07/10/2015 Inactive Bystolic 10 mg tablet RxNorm: 703480 TAKE ONE TABLET BY MOUTH DAILY 06/08/2015 12/04/2015 Inactive alprazolam 0.25 mg tablet RxNorm: 946840 1 Tablet(s) PO daily as needed 06/01/2015 08/25/2015 Inactive (Response to an electronic controlled substance refill request - RxReferenceNumber: [id number]) Fioricet 50 mg-325 mg-40 mg tablet RxNorm: 215030 Tablet(s) TAKE ONE TABLET BY MOUTH EVERY 4 HOURS NEEDED FOR headache 05/28/2015 06/08/2015 Inactive (Response to an electronic controlled substance refill request - RxReferenceNumber: [id number]) trazodone 50 mg tablet RxNorm: 098091 TAKE 1 AND 1/2 TABLET AT BEDTIME FOR 2 WEEKS, MAY INCREASE TO 2 TABLETS IF NECESSARY AFTER THAT 05/25/2015 08/22/2015 Inactive trazodone 50 mg tablet RxNorm: 954352 TAKE 1 AND 1/2 TABLET AT BEDTIME FOR 2 WEEKS, MAY INCREASE TO 2 TABLETS IF NECESSARY AFTER THAT 05/25/2015 05/24/2015 Inactive Synthroid 100 mcg tablet RxNorm: 367084 TAKE ONE TABLET BY MOUTH DAILY 04/23/2015 01/17/2016 Inactive Lipitor 10 mg tablet RxNorm: 955653 TAKE ONE TABLET BY MOUTH EVERY DAY 04/23/2015 10/25/2015 Inactive Kenalog 40 mg/mL suspension for injection RxNorm: 5392551 Milliliter(s) Inj 03/19/2015 03/19/2015 Inactive Lexapro 20 mg tablet RxNorm: 292595 1 Tablet(s) PO daily 03/19/2015 07/16/2015 Inactive 1/2 tab daily x 10 days then 1 tab daily hydrocodone 10 mg-acetaminophen 325 mg tablet RxNorm: 454185 Tablet(s) PO TAKE ONE TO TWO TABLETS BY MOUTH EVERY 6 HOURS NEEDED FOR PAIN 03/19/2015 06/06/2016 Inactive (Appended: Controlled substance eRx refill - RxReferenceNumber: [id number]) Carafate 1 gram tablet RxNorm: 264429 1 Tablet(s) PO AC & HS 03/19/2015 06/16/2015 Inactive dissolve in water and take as a slurry hydrochlorothiazide 25 mg tablet RxNorm: 320212 1 Tablet(s) PO daily 03/12/2015 09/07/2015 Inactive Nexium 40 mg capsule,delayed release RxNorm: 889471 TAKE ONE CAPSULE BY MOUTH EVERY DAY 02/26/2015 12/22/2015 Inactive Cymbalta 60 mg capsule,delayed release RxNorm: 385312 TAKE ONE CAPSULE BY MOUTH TWICE A DAY 02/23/2015 03/18/2015 Inactive alprazolam 0.25 mg tablet RxNorm: 434669 1 Tablet(s) PO daily as needed 02/11/2015 05/10/2015 Inactive (Response to an electronic controlled substance refill request - RxReferenceNumber: [id number]) trazodone 50 mg tablet RxNorm: 540987 TAKE 1 AND 1/2 TABLET AT BEDTIME FOR 2 WEEKS, MAY INCREASE TO 2 TABLETS IF NECESSARY AFTER THAT 01/27/2015 05/24/2015 Inactive Augmentin 500 mg-125 mg tablet RxNorm: 737891 1 Tablet(s) PO TID 01/07/2015 01/13/2015 Inactive gentamicin 0.3 % eye drops RxNorm: 049157 3 Drop(s) OPH QID 01/07/2015 01/13/2015 Inactive [AttnRPh: Saving apply/adjudicate RxGRP:[id number] RxBIN:[id number] RxPCN: ID#:[id number]] scopolamine 1.5 mg transdermal 72 hour patch RxNorm: 867460 1 Patch TD q72 hours 01/07/2015 11/23/2015 Inactive Synthroid 100 mcg tablet RxNorm: 749530 TAKE ONE TABLET BY MOUTH ONCE A DAY 01/06/2015 04/22/2015 Inactive nystatin 100,000 unit/gram topical powder RxNorm: 330870 APPLY TOPICALLY TWO TIMES A DAY 12/18/2014 03/17/2015 Inactive alprazolam 0.25 mg tablet RxNorm: 313123 TAKE ONE TABLET BY MOUTH DAILY NEEDED 10/30/2014 11/28/2014 Inactive (Response to an electronic controlled substance refill request - RxReferenceNumber: [id number]) alprazolam 0.25 mg tablet RxNorm: 518358 Tablet(s) TAKE ONE TABLET BY MOUTH DAILY 10/30/2014 10/29/2014 Inactive (Response to an electronic controlled substance refill request - RxReferenceNumber: [id number]) Lipitor 10 mg tablet RxNorm: 497748 TAKE ONE TABLET BY MOUTH EVERY DAY 10/30/2014 02/26/2015 Inactive alprazolam 0.25 mg tablet RxNorm: 461810 TAKE ONE TABLET BY MOUTH DAILY 10/07/2014 10/29/2014 Inactive (Response to an electronic controlled substance refill request - RxReferenceNumber: [id number]) alprazolam 0.25 mg tablet RxNorm: 452479 TAKE ONE TABLET BY MOUTH DAILY 10/06/2014 10/07/2014 Inactive (Response to an electronic controlled substance refill request - RxReferenceNumber: [id number]) alprazolam 0.25 mg tablet RxNorm: 745145 Tablet(s) TAKE ONE TABLET BY MOUTH EVERY DAY NEEDED 09/30/2014 10/06/2014 Inactive (Response to an electronic controlled substance refill request - RxReferenceNumber: [id number]) Fioricet 50 mg-325 mg-40 mg tablet RxNorm: 179528 Tablet(s) TAKE ONE TABLET BY MOUTH EVERY 4 HOURS NEEDED FOR headache 09/29/2014 10/12/2014 Inactive (Response to an electronic controlled substance refill request - RxReferenceNumber: [id number]) Bystolic 10 mg tablet RxNorm: 195237 1 Tablet(s) PO daily TAKE ONE TABLET BY MOUTH EVERY DAY 09/29/2014 04/26/2015 Inactive Bystolic 5 mg tablet RxNorm: 950028 TAKE 1 AND 1/2 TABLETS ONCE DAILY 09/24/2014 09/23/2014 Inactive Bystolic 5 mg tablet RxNorm: 355156 Tablet(s) TAKE 1 AND 1/2 TABLETS ONCE DAILY 09/24/2014 09/18/2015 Inactive gentamicin 0.3 % eye drops RxNorm: 097781 3 Drop(s) OPH QID 09/23/2014 09/29/2014 Inactive trazodone 50 mg tablet RxNorm: 770441 TAKE 1 AND 1/2 TABLET AT BEDTIME FOR 2 WEEKS, MAY INCREASE TO 2 TABLETS IF NECESSARY AFTER THAT 09/22/2014 01/26/2015 Inactive Fioricet 50 mg-325 mg-40 mg tablet RxNorm: 139699 TAKE ONE TABLET BY MOUTH EVERY 4 HOURS NEEDED FOR PAIN 09/17/2014 09/28/2014 Inactive (Response to an electronic controlled substance refill request - RxReferenceNumber: [id number]) Duragesic 50 mcg/hr transdermal patch RxNorm: 751365 1 TD q72 hours 08/07/2014 01/06/2015 Inactive [SAVINGS FOR UNINSURED PATIENTS -- BIN:[id number], PCN: ASPROD1, Group: [id number], ID# [id number], Process claim through [employer], for questions: . THIS IS NOT INSURANCE.] alprazolam 0.25 mg tablet RxNorm: 848016 TAKE ONE TABLET BY MOUTH EVERY DAY NEEDED 07/31/2014 08/29/2014 Inactive (Response to an electronic controlled substance refill request - RxReferenceNumber: [id number]) alprazolam 0.25 mg tablet RxNorm: 847707 1 Tablet(s) PO daily as needed TAKE ONE TABLET BY MOUTH EVERY DAY NEEDED 07/30/2014 08/01/2014 Inactive (Response to an electronic controlled substance refill request - RxReferenceNumber: [id number]) Diflucan 150 mg tablet RxNorm: 172901 1 Tablet(s) PO daily 06/25/2014 07/01/2014 Inactive [SAVINGS FOR UNINSURED PATIENTS -- BIN:[id number], PCN: ASPROD1, Group: [id number], ID# [id number], Process claim through [employer], for questions: . THIS IS NOT INSURANCE.] Kenalog 40 mg/mL suspension for injection RxNorm: 5041191 Milliliter(s) Inj 06/23/2014 06/23/2014 Inactive [SAVINGS FOR UNINSURED PATIENTS -- BIN:082864, PCN: ASPROD1, Group: [id number], ID# [id number], Process claim through [employer], for questions: . THIS IS NOT INSURANCE.] ceftriaxone 500 mg solution for injection RxNorm: 752420 Inj 06/23/2014 06/23/2014 Inactive [SAVINGS FOR UNINSURED PATIENTS -- BIN:125862, PCN: ASPROD1, Group: [id number], ID# [id number], Process claim through [employer], for questions: . THIS IS NOT INSURANCE.] Levaquin 500 mg tablet RxNorm: 393309 1 Tablet(s) PO daily 06/23/2014 07/13/2014 Inactive [SAVINGS FOR UNINSURED PATIENTS -- BIN:391418, PCN: ASPROD1, Group: [id number], ID# [id number], Process claim through [employer], for questions: . THIS IS NOT INSURANCE.] Duragesic 50 mcg/hr transdermal patch RxNorm: 717091 1 TD q72 hours 06/05/2014 08/06/2014 Inactive [SAVINGS FOR UNINSURED PATIENTS -- BIN:536412, PCN: ASPROD1, Group: [id number], ID# [id number], Process claim through [employer], for questions: . THIS IS NOT INSURANCE.] alprazolam 0.25 mg tablet RxNorm: 097793 1 Tablet(s) PO daily as needed TAKE ONE TABLET BY MOUTH EVERY DAY NEEDED 06/02/2014 07/29/2014 Inactive (Response to an electronic controlled substance refill request - RxReferenceNumber: [id number]) nystatin 100,000 unit/gram topical powder RxNorm: 736722 APPLY TO AFFECTED AREA(S) TWO TIMES A DAY 05/01/2014 06/14/2014 Inactive hydrochlorothiazide 25 mg tablet RxNorm: 294243 TAKE ONE TABLET BY MOUTH EVERY DAY MUST CALL MD FOR APPOINTMENT 04/24/2014 10/20/2014 Inactive alprazolam 0.25 mg tablet RxNorm: 493430 Tablet(s) TAKE ONE TABLET BY MOUTH EVERY DAY NEEDED 04/16/2014 06/02/2014 Inactive (Response to an electronic controlled substance refill request - RxReferenceNumber: [id number]) alprazolam 0.25 mg tablet RxNorm: 012335 TAKE ONE TABLET BY MOUTH EVERY DAY NEEDED 04/16/2014 05/15/2014 Inactive (Response to an electronic controlled substance refill request - RxReferenceNumber: [id number]) alprazolam 0.25 mg tablet RxNorm: 438270 TAKE ONE TABLET BY MOUTH EVERY DAY NEEDED 04/16/2014 05/15/2014 Inactive (Response to an electronic controlled substance refill request - RxReferenceNumber: [id number]) alprazolam 0.25 mg tablet RxNorm: 383335 TAKE ONE TABLET BY MOUTH EVERY DAY NEEDED 04/14/2014 04/16/2014 Inactive (Response to an electronic controlled substance refill request - RxReferenceNumber: [id number]) Lipitor 10 mg tablet RxNorm: 627510 TAKE ONE TABLET BY MOUTH EVERY DAY 04/14/2014 09/10/2014 Inactive alprazolam 0.25 mg tablet RxNorm: 100375 TAKE ONE TABLET BY MOUTH EVERY DAY NEEDED 04/14/2014 04/14/2014 Inactive (Response to an electronic controlled substance refill request - RxReferenceNumber: [id number]) alprazolam 0.25 mg tablet RxNorm: 826617 TAKE ONE TABLET BY MOUTH EVERY DAY NEEDED 04/14/2014 04/15/2014 Inactive (Response to an electronic controlled substance refill request - RxReferenceNumber: [id number]) alprazolam 0.25 mg tablet RxNorm: 292328 TAKE ONE TABLET BY MOUTH EVERY DAY NEEDED 04/14/2014 04/14/2014 Inactive (Response to an electronic controlled substance refill request - RxReferenceNumber: [id number]) nystatin 100,000 unit/gram topical powder RxNorm: 439345 1 Application TOP BID 04/03/2014 07/01/2014 Inactive [SAVINGS FOR UNINSURED PATIENTS -- BIN:865103, PCN: ASPROD1, Group: [id number], ID# [id number], Process claim through [employer], for questions: . THIS IS NOT INSURANCE.] Keflex 500 mg capsule RxNorm: 209324 1 Capsule(s) PO QID 04/03/2014 04/09/2014 Inactive [SAVINGS FOR UNINSURED PATIENTS -- BIN:462608, PCN: ASPROD1, Group: [id number], ID# [id number], Process claim through [employer], for questions: . THIS IS NOT INSURANCE.] Synthroid 100 mcg tablet RxNorm: 981230 1 Tablet(s) PO daily TAKE ONE TABLET BY MOUTH EVERY DAY 04/01/2014 01/05/2015 Inactive [SAVINGS FOR UNINSURED PATIENTS -- BIN:767211, PCN: ASPROD1, Group: AME08, ID# [id number], Process claim through [employer], for questions: . THIS IS NOT INSURANCE.] Duragesic 50 mcg/hr transdermal patch RxNorm: 445157 1 TD q72 hours 03/24/2014 06/04/2014 Inactive [SAVINGS FOR UNINSURED PATIENTS -- BIN:962820, PCN: ASPROD1, Group: [id number], ID# [id number], Process claim through [employer], for questions: . THIS IS NOT INSURANCE.] trazodone 50 mg tablet RxNorm: 314767 TAKE 1 AND 1/2 TABLET AT BEDTIME FOR 2 WEEKS, MAY INCREASE TO 2 TABLETS IF NECESSARY AFTER THAT 03/18/2014 09/13/2014 Inactive nystatin 100,000 unit/gram topical powder RxNorm: 060028 1 Application TOP BID 03/07/2014 03/16/2014 Inactive [SAVINGS FOR UNINSURED PATIENTS -- BIN:743986, PCN: ASPROD1, Group: AME08, ID# [id number], Process claim through [employer], for questions: . THIS IS NOT INSURANCE.] permethrin 5 % topical cream RxNorm: 175241 1 Application TOP daily 03/07/2014 11/23/2015 Inactive apply head to toe-leave on overnight and wash off in the a.m. May repeat x 1 if needed Diflucan 150 mg tablet RxNorm: 466876 1 Tablet(s) PO daily 03/07/2014 03/09/2014 Inactive [SAVINGS FOR UNINSURED PATIENTS -- BIN:779738, PCN: ASPROD1, Group: [id number], ID# [id number], Process claim through [employer], for questions: . THIS IS NOT INSURANCE.] hydrochlorothiazide 25 mg tablet RxNorm: 828859 TAKE ONE TABLET BY MOUTH EVERY DAY MUST CALL MD FOR APPOINTMENT 03/06/2014 04/23/2014 Inactive Zithromax Z-Sergio 250 mg tablet RxNorm: 797176 Tablet(s) PO as directed 03/04/2014 11/23/2015 Inactive [SAVINGS FOR UNINSURED PATIENTS -- BIN:679187, PCN: ASPROD1, Group: AME08, ID# [id number], Process claim through [employer], for questions: . THIS IS NOT INSURANCE.] Flonase 50 mcg/actuation nasal spray,suspension RxNorm: 864375 1 [place] NASAL daily 03/04/2014 07/01/2014 Inactive [SAVINGS FOR UNINSURED PATIENTS -- BIN:056300, PCN: ASPROD1, Group: [id number], ID# [id number], Process claim through [employer], for questions: . THIS IS NOT INSURANCE.] alprazolam 0.25 mg tablet RxNorm: 368425 1 Tablet(s) PO PRN TAKE ONE TABLET BY MOUTH EVERY DAY NEEDED 02/25/2014 04/14/2014 Inactive (Appended: Controlled substance eRx refill - RxReferenceNumber: [id number]) alprazolam 0.25 mg tablet RxNorm: 520865 TAKE ONE TABLET BY MOUTH EVERY DAY NEEDED 02/21/2014 03/22/2014 Inactive (Response to an electronic controlled substance refill request - RxReferenceNumber: [id number]) alprazolam 0.25 mg tablet RxNorm: 984383 TAKE ONE TABLET BY MOUTH EVERY DAY NEEDED 02/21/2014 03/22/2014 Inactive (Response to an electronic controlled substance refill request - RxReferenceNumber: [id number]) alprazolam 0.25 mg tablet RxNorm: 001018 TAKE ONE TABLET BY MOUTH EVERY DAY NEEDED 02/18/2014 03/19/2014 Inactive (Response to an electronic controlled substance refill request - RxReferenceNumber: [id number]) Cymbalta 60 mg capsule,delayed release RxNorm: 511547 TAKE ONE CAPSULE BY MOUTH TWICE A DAY 02/18/2014 01/13/2015 Inactive Nexium 40 mg capsule,delayed release RxNorm: 181750 TAKE ONE CAPSULE BY MOUTH EVERY DAY 02/18/2014 01/13/2015 Inactive Bactrim DS 800 mg-160 mg tablet RxNorm: 312416 1 Tablet(s) PO BID 02/13/2014 02/19/2014 Inactive probiotic while one antibiotic Bactrim DS 800 mg-160 mg tablet RxNorm: 240750 1 Tablet(s) PO BID 02/13/2014 02/12/2014 Inactive hydrocodone 10 mg-acetaminophen 325 mg tablet RxNorm: 630854 Tablet(s) PO TAKE ONE TO TWO TABLETS BY MOUTH EVERY 6 HOURS NEEDED FOR PAIN 02/06/2014 03/18/2015 Inactive (Appended: Controlled substance eRx refill - RxReferenceNumber: [id number]) Abilify 2 mg tablet RxNorm: 067883 Tablet(s) PO TAKE ONE TABLET BY MOUTH EVERY NIGHT AT BEDTIME 02/03/2014 03/19/2015 Inactive Duragesic 50 mcg/hr transdermal patch RxNorm: 947825 1 TD q72 hours 01/14/2014 03/23/2014 Inactive alprazolam 0.25 mg tablet RxNorm: 310741 1 Tablet(s) PO QDAY PRN 01/14/2014 02/12/2014 Inactive alprazolam 0.25 mg tablet RxNorm: 899228 Tablet(s) PO TAKE ONE TABLET BY MOUTH EVERY DAY NEEDED 01/14/2014 02/24/2014 Inactive (Appended: Controlled substance eRx refill - RxReferenceNumber: [id number]) Lipitor 10 mg tablet RxNorm: 765658 Tablet(s) PO TAKE ONE TABLET BY MOUTH EVERY DAY 01/14/2014 04/13/2014 Inactive Synthroid 100 mcg tablet RxNorm: 263184 Tablet(s) PO TAKE ONE TABLET BY MOUTH EVERY DAY 2013 03/31/2014 Inactive Fioricet 50 mg-325 mg-40 mg tablet RxNorm: 011823 Tablet(s) PO TAKE ONE TABLET BY MOUTH EVERY 4 HOURS NEEDED FOR PAIN 11/27/2013 09/17/2014 Inactive Fioricet 50 mg-325 mg-40 mg tablet RxNorm: 318946 Tablet(s) PO TAKE ONE TABLET BY MOUTH EVERY 4 HOURS NEEDED FOR PAIN 11/25/2013 11/26/2013 Inactive Zithromax Z-Sergio 250 mg tablet RxNorm: 494195 Tablet(s) PO as directed 11/11/2013 01/13/2014 Inactive Bystolic 10 mg tablet RxNorm: 186328 Tablet(s) PO TAKE ONE TABLET BY MOUTH EVERY DAY 10/21/2013 09/28/2014 Inactive Abilify 2 mg tablet RxNorm: 841635 1 Tablet(s) PO QHS 09/25/2013 01/22/2014 Inactive Synthroid 100 mcg tablet RxNorm: 224305 Tablet(s) PO TAKE ONE TABLET BY MOUTH EVERY DAY 09/24/2013 12/25/2013 Inactive Abilify 2 mg tablet RxNorm: 160944 1 Tablet(s) PO QHS 09/24/2013 09/24/2013 Inactive Rocephin 500 mg solution for injection RxNorm: 486133 1ml Milliliter(s) Inj 09/24/2013 09/24/2013 Inactive Rocephin 500 mg solution for injection RxNorm: 778573 1 Milliliter(s) Inj 09/19/2013 09/19/2013 Inactive Bystolic 5 mg tablet RxNorm: 056885 1 1/2 Tablet(s) PO daily 09/17/2013 03/15/2014 Inactive 1 1/2 daily may have 90 day if cheaper Bystolic 5 mg tablet RxNorm: 586271 1 1/2 Tablet(s) PO daily 09/17/2013 09/16/2013 Inactive 1 1/2 daily Lipitor 10 mg tablet RxNorm: 297441 Tablet(s) PO TAKE ONE TABLET BY MOUTH EVERY DAY 09/12/2013 01/13/2014 Inactive hydrocodone 10 mg-acetaminophen 325 mg tablet RxNorm: 610351 Tablet(s) PO TAKE ONE TO TWO TABLETS BY MOUTH EVERY 6 HOURS NEEDED FOR PAIN 09/09/2013 10/29/2017 Inactive (Appended: Controlled substance eRx refill - RxReferenceNumber: [id number]) hydrocodone 10 mg-acetaminophen 325 mg tablet RxNorm: 023292 1 Tablet(s) PO Q6 PRN 09/09/2013 02/06/2014 Inactive hydrocodone 10 mg-acetaminophen 325 mg tablet RxNorm: 393867 Tablet(s) PO TAKE ONE TO TWO TABLETS BY MOUTH EVERY 6 HOURS NEEDED FOR PAIN 09/06/2013 10/29/2017 Inactive (Appended: Controlled substance eRx refill - RxReferenceNumber: [id number]) Norvasc 10 mg tablet RxNorm: 870334 Tablet(s) PO TAKE ONE TABLET BY MOUTH EVERY DAY 09/05/2013 10/25/2015 Inactive trazodone 50 mg tablet RxNorm: 070675 1 1/2 Tablet(s) PO QHS 09/03/2013 03/17/2014 Inactive 75q hs x 2 week may increase to 100mg if nec after that nystatin 100,000 unit/mL oral suspension RxNorm: 576595 6 Milliliter(s) PO QID 08/06/2013 08/15/2013 Inactive Flonase 50 mcg/actuation nasal spray,suspension RxNorm: 142592 2 [place] NASAL daily 08/06/2013 03/03/2014 Inactive nystatin 100,000 unit/mL oral suspension RxNorm: 000274 6 Unit(s) PO QID 08/05/2013 08/05/2013 Inactive Phenergan with Codeine Syrup RxNorm: 5 Milliliter(s) PO Q4 PRN 08/05/2013 12/02/2013 Inactive 8 ounces alprazolam 0.25 mg tablet RxNorm: 165752 1 Tablet(s) PO QDAY PRN 07/29/2013 01/14/2014 Inactive Diflucan 150 mg tablet RxNorm: 096008 1 Tablet(s) PO daily 07/24/2013 07/26/2013 Inactive hydrochlorothiazide 25 mg tablet RxNorm: 737088 Tablet(s) PO TAKE ONE TABLET BY MOUTH EVERY DAY MUST CALL MD FOR APPOINTMENT 07/19/2013 03/05/2014 Inactive Phenergan with Codeine Syrup RxNorm: 10 Milliliter(s) PO Q4 PRN 07/10/2013 08/04/2013 Inactive 8 ounces Rocephin 500 mg solution for injection RxNorm: 2219557 1 Inj 07/10/2013 07/10/2013 Inactive cefdinir 300 mg capsule RxNorm: 309821 1 Capsule(s) PO BID 07/10/2013 07/16/2013 Inactive prednisone 10 mg tablet RxNorm: 190791 3 Tablet(s) PO daily 07/10/2013 07/14/2013 Inactive Carafate 100 mg/mL oral suspension RxNorm: 041222 10 Milliliter(s) PO Q6 PRN pt to take carafate 10mL every 6 hours as needed. 07/10/2013 08/05/2014 Inactive Kenalog 40 mg/mL suspension for injection RxNorm: 7796645 1 Milliliter(s) Inj 07/10/2013 07/10/2013 Inactive trazodone 50 mg tablet RxNorm: 456510 1 Tablet(s) PO QHS 07/10/2013 09/02/2013 Inactive sulfamethoxazole 800 mg-trimethoprim 160 mg tablet RxNorm: 153914 1 Tablet(s) PO BID 06/03/2013 06/12/2013 Inactive Synthroid 125 mcg tablet RxNorm: 020341 1 Tablet(s) PO daily 05/07/2013 09/23/2013 Inactive Bystolic 10 mg tablet RxNorm: 647702 1.5 Tablet(s) PO daily 05/07/2013 09/03/2013 Inactive Voltaren 1 % Topical Gel RxNorm: 499142 4 Gram(s) TOP QID apply 4 grams to knees, 2 grams to hands and ankles four times daily. 05/07/2013 09/03/2013 Inactive hydrocodone 10 mg-acetaminophen 325 mg tablet RxNorm: 102697 1 Tablet(s) PO Q6 PRN 04/23/2013 09/09/2013 Inactive Norvasc 10 mg tablet RxNorm: 943217 Tablet(s) PO TAKE ONE TABLET BY MOUTH EVERY DAY 04/23/2013 09/04/2013 Inactive alprazolam 0.25 mg tablet RxNorm: 068115 1 Tablet(s) PO QDAY PRN 03/25/2013 07/22/2013 Inactive Bystolic 10 mg tablet RxNorm: 690382 1 Tablet(s) PO daily TAKE ONE TABLET BY MOUTH EVERY DAY 03/25/2013 05/06/2013 Inactive zolpidem 10 mg tablet RxNorm: 057514 1 Tablet(s) PO HS PRN 03/25/2013 07/09/2013 Inactive gentamicin 0.3 % Eye Drops RxNorm: 014402 3 Drop(s) OPH QID three gtts to each eye QID x 7 days 03/11/2013 03/10/2013 Inactive gentamicin 0.3 % eye drops RxNorm: 244505 3 Drop(s) OPH QID three gtts to each eye QID x 7 days 03/11/2013 03/17/2013 Inactive Nexium 40 mg capsule,delayed release RxNorm: 697748 Capsule(s) PO TAKE ONE CAPSULE BY MOUTH EVERY DAY 02/15/2013 02/17/2014 Inactive Cymbalta 60 mg capsule,delayed release RxNorm: 774539 Capsule(s) PO TAKE ONE CAPSULE BY MOUTH TWICE A DAY 02/15/2013 02/17/2014 Inactive hydrocodone 10 mg-acetaminophen 325 mg tablet RxNorm: 7822496 1 Tablet(s) PO Q6 PRN 01/22/2013 04/22/2013 Inactive Lipitor 10 mg tablet RxNorm: 945643 Tablet(s) PO TAKE ONE TABLET BY MOUTH EVERY DAY 01/07/2013 09/11/2013 Inactive Cymbalta 60 mg capsule,delayed release RxNorm: 025538 Capsule(s) PO TAKE ONE CAPSULE BY MOUTH TWICE A DAY 01/02/2013 02/14/2013 Inactive Synthroid 100 mcg tablet RxNorm: 435442 1 Tablet(s) PO 12/03/2012 05/06/2013 Inactive Enablex 7.5 mg tablet,extended release RxNorm: 078040 1 Tablet(s) PO daily 11/28/2012 11/27/2012 Inactive Enablex 7.5 mg tablet,extended release RxNorm: 119429 1 Tablet(s) PO daily 11/28/2012 11/28/2012 Inactive scopolamine 1.5 mg 72 hr Transderm Patch RxNorm: 125171 1 Milligram(s) TD q72 hours 11/26/2012 05/06/2013 Inactive hydrochlorothiazide 25 mg tablet RxNorm: 548298 Tablet(s) PO TAKE ONE TABLET BY MOUTH EVERY DAY MUST CALL MD FOR APPOINTMENT 11/24/2012 07/18/2013 Inactive Cymbalta 60 mg capsule,delayed release RxNorm: 731676 Capsule(s) PO TAKE ONE CAPSULE BY MOUTH TWICE A DAY 10/26/2012 01/01/2013 Inactive Bystolic 10 mg tablet RxNorm: 909264 Tablet(s) PO TAKE ONE TABLET BY MOUTH EVERY DAY 10/12/2012 03/25/2013 Inactive zolpidem 10 mg tablet RxNorm: 780896 1 Tablet(s) PO HS PRN 10/02/2012 01/29/2013 Inactive alprazolam 0.25 mg tablet RxNorm: 664423 1 Tablet(s) PO QDAY PRN 10/02/2012 01/29/2013 Inactive Kenalog 40 mg/mL Susp for Injection RxNorm: 7005631 1 Milliliter(s) Inj 09/24/2012 09/24/2012 Inactive Diflucan 150 mg tablet RxNorm: 739736 1 Tablet(s) PO daily 09/24/2012 09/30/2012 Inactive acyclovir 400 mg tablet RxNorm: 979154 1 Tablet(s) PO QID 09/24/2012 10/08/2012 Inactive Cipro 500 mg tablet RxNorm: 203681 1 Tablet(s) PO BID 09/24/2012 09/30/2012 Inactive Tamiflu 75 mg capsule RxNorm: 212944 1 Capsule(s) PO BID 09/17/2012 09/16/2012 Inactive Tamiflu 75 mg capsule RxNorm: 714733 1 Capsule(s) PO BID 09/17/2012 09/16/2012 Inactive Tamiflu 75 mg capsule RxNorm: 598567 1 Capsule(s) PO BID please disregard order for #14 09/17/2012 09/21/2012 Inactive fluconazole 150 mg tablet RxNorm: 224922 1 Tablet(s) PO daily 09/10/2012 09/13/2012 Inactive ketoconazole 2 % Topical Cream RxNorm: 689061 Application TOP BID apply to affected area BID until gone 08/31/2012 11/01/2017 Inactive Norvasc 10 mg tablet RxNorm: 930340 Tablet(s) PO TAKE ONE TABLET BY MOUTH EVERY DAY 08/29/2012 04/22/2013 Inactive Cipro 500 mg tablet RxNorm: 887256 1 Tablet(s) PO BID 08/17/2012 08/26/2012 Inactive Flagyl 500 mg tablet RxNorm: 561775 1 Tablet(s) PO TID 08/17/2012 08/23/2012 Inactive Cipro 500 mg tablet RxNorm: 735345 1 Tablet(s) PO BID 08/17/2012 08/16/2012 Inactive zolpidem 10 mg tablet RxNorm: 064096 1 Tablet(s) PO HS PRN 08/17/2012 09/15/2012 Inactive Flagyl 500 mg tablet RxNorm: 574601 1 Tablet(s) PO TID 08/17/2012 08/16/2012 Inactive alprazolam 0.25 mg tablet RxNorm: 782748 1 Tablet(s) PO QDAY PRN 08/17/2012 09/15/2012 Inactive [place] Allergy 180 mg tablet RxNorm: 264227 1 Tablet(s) PO daily 08/08/2012 02/03/2013 Inactive hydrochlorothiazide 25 mg tablet RxNorm: 622788 1/2 Tablet(s) PO daily 08/08/2012 11/05/2012 Inactive needs appt Carafate 1 gram tablet RxNorm: 316521 1 Tablet(s) PO QID mix with 10 cc water and dissolve into slurry 08/08/2012 08/21/2012 Inactive hydrocodone 10 mg-acetaminophen 325 mg tablet RxNorm: 7571156 1 Tablet(s) PO Q6 PRN 08/08/2012 01/21/2013 Inactive Synthroid 100 mcg tablet RxNorm: 554510 1 Tablet(s) PO 08/08/2012 12/02/2012 Inactive Cymbalta 60 mg capsule,delayed release RxNorm: 651187 Capsule(s) PO 07/23/2012 10/25/2012 Inactive TAKE ONE CAPSULE BY MOUTH TWICE A DAY Nexium 40 mg capsule,delayed release RxNorm: 866950 Capsule(s) PO 06/20/2012 02/14/2013 Inactive TAKE ONE CAPSULE BY MOUTH EVERY DAY Lipitor 10 mg tablet RxNorm: 001274 Tablet(s) PO 06/20/2012 01/06/2013 Inactive TAKE ONE TABLET BY MOUTH EVERY DAY hydrochlorothiazide 25 mg tablet RxNorm: 889530 1 Tablet(s) PO daily 06/19/2012 08/07/2012 Inactive needs appt alprazolam 0.25 mg tablet RxNorm: 924031 1 Tablet(s) PO QDAY PRN 06/05/2012 07/04/2012 Inactive zolpidem 10 mg tablet RxNorm: 649415 1 Tablet(s) PO HS PRN 06/05/2012 07/04/2012 Inactive zolpidem 10 mg tablet RxNorm: 269106 1 Tablet(s) PO HS PRN 04/16/2012 05/15/2012 Inactive alprazolam 0.25 mg tablet RxNorm: 431016 1 Tablet(s) PO QDAY PRN 04/16/2012 05/15/2012 Inactive Cymbalta 60 mg capsule,delayed release RxNorm: 493101 1 Capsule(s) PO BID 03/22/2012 07/19/2012 Inactive Fioricet 50 mg-325 mg-40 mg tablet RxNorm: 200704 1 Tablet(s) PO Q4 PRN 03/22/2012 11/24/2013 Inactive Bystolic 10 mg tablet RxNorm: 038629 Tablet(s) PO 03/22/2012 10/11/2012 Inactive TAKE ONE TABLET BY MOUTH EVERY DAY potassium chloride ER 10 mEq Tab RxNorm: 456994 1 Tablet(s) PO daily 02/24/2012 03/01/2012 Inactive Lasix 20 mg Tab RxNorm: 935739 1 Tablet(s) PO daily 02/22/2012 02/21/2012 Inactive KCL 10 meq RxNorm: 1 PO daily 02/22/2012 02/21/2012 Inactive potassium chloride ER 10 mEq Tab RxNorm: 031347 1 Tablet(s) PO daily 02/22/2012 02/21/2012 Inactive Lasix 20 mg Tab RxNorm: 322110 1 Tablet(s) PO daily 02/22/2012 02/28/2012 Inactive KCL 10 meq RxNorm: 1 PO daily 02/22/2012 02/22/2012 Inactive potassium chloride ER 10 mEq Tab RxNorm: 015290 1 Tablet(s) PO daily 02/22/2012 02/23/2012 Inactive Rocephin 500 mg Solution for Injection RxNorm: 6750193 Inj 02/15/2012 02/15/2012 Inactive Nexium 40 mg capsule,delayed release RxNorm: 812560 1 Capsule(s) PO daily 02/15/2012 No Stop Date Active Bystolic 10 mg Tab RxNorm: 729024 1 Tablet(s) PO daily 02/15/2012 08/12/2012 Inactive alprazolam 0.25 mg tablet RxNorm: 977545 1 Tablet(s) PO QDAY PRN 01/31/2012 02/29/2012 Inactive zolpidem 10 mg tablet RxNorm: 894531 1 Tablet(s) PO HS PRN 01/31/2012 02/29/2012 Inactive alprazolam 0.25 mg Tab RxNorm: 557924 1 Tablet(s) PO QDAY PRN 12/16/2011 01/14/2012 Inactive zolpidem 10 mg Tab RxNorm: 411791 1 Tablet(s) PO HS PRN 12/16/2011 01/14/2012 Inactive Norvasc 10 mg tablet RxNorm: 899774 1 Tablet(s) PO daily 12/02/2011 02/21/2012 Inactive Lipitor 10 mg tablet RxNorm: 047593 1 Tablet(s) PO daily 11/16/2011 05/13/2012 Inactive zolpidem 10 mg Tab RxNorm: 502294 1 Tablet(s) PO HS PRN 10/26/2011 12/15/2011 Inactive alprazolam 0.25 mg Tab RxNorm: 718587 1 Tablet(s) PO QDAY PRN 10/26/2011 12/15/2011 Inactive hydrochlorothiazide 25 mg tablet RxNorm: 124313 1 Tablet(s) PO daily 09/05/2011 03/02/2012 Inactive Synthroid 75 mcg tablet RxNorm: 130909 1 Tablet(s) PO daily 08/01/2011 02/26/2012 Inactive Abilify 2 mg Tab RxNorm: 429642 1 Tablet(s) PO QHS 08/01/2011 09/10/2012 Inactive dicyclomine 10 mg Cap RxNorm: 503030 1 Capsule(s) PO TID 08/01/2011 10/29/2011 Inactive alprazolam 0.25 mg Tab RxNorm: 875911 1 Tablet(s) PO QDAY PRN 07/26/2011 10/25/2011 Inactive Fioricet 50 mg-325 mg-40 mg tablet RxNorm: 187894 1 Tablet(s) PO Q4 PRN 07/14/2011 03/21/2012 Inactive Rocephin 500 mg Solution for Injection RxNorm: 8692941 1 Milliliter(s) Inj 07/14/2011 08/01/2011 Inactive Nexium 40 mg Capsule, delayed release RxNorm: 459861 1 Capsule(s) PO daily 05/23/2011 10/06/2011 Inactive Bystolic 10 mg tablet RxNorm: 532590 1 Tablet(s) PO daily 05/23/2011 11/18/2011 Inactive Bystolic 10 mg Tab RxNorm: 227779 1 Tablet(s) PO daily 05/23/2011 05/22/2011 Inactive alprazolam 0.25 mg Tab RxNorm: 803573 1 Tablet(s) PO QDAY PRN 05/23/2011 07/25/2011 Inactive Influenza Virus Vaccine 0.5 mL RxNorm: IM 05/23/2011 05/23/2011 Inactive zolpidem 10 mg Tab RxNorm: 141212 1 Tablet(s) PO HS PRN 05/23/2011 10/25/2011 Inactive Rocephin 500 mg Solution for Injection RxNorm: 4266676 1 Milliliter(s) Inj 05/03/2011 07/14/2011 Inactive Kenalog 40 mg/mL Susp for Injection RxNorm: 9039877 1 Milliliter(s) Inj 05/03/2011 07/14/2011 Inactive Bactrim DS 800 mg-160 mg Tab RxNorm: 139528 1 Tablet(s) PO BID 05/03/2011 08/01/2011 Inactive Bystolic 10 mg tablet RxNorm: 181280 1 Tablet(s) PO daily No Start Date Active Flonase 50 mcg/actuation nasal spray,suspension RxNorm: 5079068 2 [place] NASAL daily No Start Date 08/05/2013 Inactive Levaquin 500 mg tablet RxNorm: 863532 Tablet(s) PO No Start Date 04/19/2017 Inactive Duragesic 50 mcg/hr transdermal patch RxNorm: 887255 1 TD q72 hours No Start Date 01/13/2014 Inactive Vesicare 5 mg tablet RxNorm: 585926 1 Tablet(s) PO daily No Start Date 01/06/2015 Inactive Celebrex 200 mg capsule RxNorm: 479912 1 Capsule(s) PO daily No Start Date 04/02/2014 Inactive zolpidem 10 mg Tab RxNorm: 963452 1 Tablet(s) PO HS PRN No Start Date 05/22/2011 Inactive Zyrtec 10 mg Tab RxNorm: 2657887 1 Tablet(s) PO daily No Start Date 08/08/2012 Inactive Flonase 50 mcg/actuation nasal spray,suspension RxNorm: 8408407 1 [place] NASAL daily No Start Date 11/07/2017 Inactive 1 spray to each nostril daily Nexium 40 mg Cap RxNorm: 762577 1 Capsule(s) PO daily No Start Date 05/22/2011 Inactive ketoconazole 2 % Topical Cream RxNorm: 574802 Application TOP BID apply to affected area BID until gone No Start Date 08/30/2012 Inactive aspirin 81 mg tablet RxNorm: 269325 1 Tablet(s) PO daily No Start Date 11/13/2017 Inactive Cymbalta 60 mg capsule,delayed release RxNorm: 853344 1 Capsule(s) PO BID No Start Date 03/21/2012 Inactive alprazolam 0.25 mg Tab RxNorm: 625368 1 Tablet(s) PO QDAY PRN No Start Date 05/22/2011 Inactive baclofen 10 mg tablet RxNorm: 563351 1 Tablet(s) PO TID as needed muscle spasms No Start Date 11/14/2017 Inactive Toprol XL 100 mg 24 hr Tab RxNorm: 872181 1 Tablet(s) PO BID No Start Date 04/25/2011 Inactive Xanax 0.25 mg tablet RxNorm: 246270 1 Tablet(s) PO daily as needed No Start Date 12/27/2015 Inactive Bystolic 10 mg Tab RxNorm: 788199 1 Tablet(s) PO daily No Start Date 05/22/2011 Inactive Fioricet 50 mg-325 mg-40 mg Tab RxNorm: 291972 1 Tablet(s) PO Q4 PRN No Start Date 07/13/2011 Inactive albuterol sulfate HFA 90 mcg/Actuation Aerosol Inhaler RxNorm: 0069532 1 INH Q4 PRN No Start Date 01/06/2015 Inactive Imitrex 50 mg tablet RxNorm: 551920 1 Tablet(s) PO Q8 as needed may repeat x1 dose in 1 hour of inital dose. No Start Date 02/24/2016 Inactive dc fioricet Tessalon 200 mg Cap RxNorm: 923576 1 Capsule(s) PO Q4 PRN No Start Date 02/14/2012 Inactive Zithromax Z-Sergio 250 mg tablet RxNorm: 357853 Tablet(s) PO No Start Date 11/10/2013 Inactive hydrochlorothiazide 25 mg Tab RxNorm: 359276 1 Tablet(s) PO daily No Start Date 09/04/2011 Inactive Fish Oil 1,000 mg Cap RxNorm: 1 Capsule(s) PO TID No Start Date 11/08/2017 Inactive Deplin 15 mg Tab RxNorm: 1 Tablet(s) PO daily No Start Date 08/01/2011 Inactive Brilinta 90 mg tablet RxNorm: 6151016 1 Tablet(s) PO BID No Start Date 11/23/2015 Inactive Synthroid 75 mcg Tab RxNorm: 306014 1 Tablet(s) PO daily No Start Date 07/31/2011 Inactive ciprofloxacin 0.3 % eye drops RxNorm: 058475 2 Drop(s) ophthalmic (eye) Q2H while awake x 2 days, then Q4H x 5 days No Start Date 11/22/2017 Inactive scopolamine 1.5 mg 72 hr Transderm Patch RxNorm: 216548 1 Milligram(s) TD q72 hours No Start Date 11/25/2012 Inactive hydrocodone-acetaminophen 10 mg-325 mg tablet RxNorm: 8590978 1 Tablet(s) PO Q6 PRN No Start Date 08/07/2012 Inactive Phenergan with Codeine Syrup RxNorm: 5-10 Milliliter(s) PO Q6 PRN No Start Date 02/14/2012 Inactive Norvasc 10 mg Tab RxNorm: 783556 1 Tablet(s) PO daily No Start Date 12/01/2011 Inactive Zithromax Z-Sergio 250 mg Tab RxNorm: 366884 Tablet(s) PO No Start Date 08/01/2011 Inactive Medication Administered Medication Codes Instructions Start Date Status ceftriaxone 500 mg solution for injection RxNorm: 7647419 05/28/2018 No longer Active Kenalog 40 mg/mL suspension for injection RxNorm: 0745480 Milliliter 05/28/2018 No longer Active ceftriaxone 500 mg solution for injection RxNorm: 9159721 500Milligram 01/19/2018 No longer Active Kenalog 40 mg/mL suspension for injection RxNorm: 6785351 1Milliliter 01/19/2018 No longer Active Kenalog 40 mg/mL suspension for injection RxNorm: 9113407 1Milliliter 06/27/2017 No longer Active Kenalog 40 mg/mL suspension for injection RxNorm: 4522659 Milliliter 04/20/2017 No longer Active Kenalog 40 mg/mL suspension for injection RxNorm: 8383503 1Milliliter 03/14/2017 No longer Active ceftriaxone 500 mg solution for injection RxNorm: 0258388 1Milliliter 11/28/2016 No longer Active Kenalog 40 mg/mL suspension for injection RxNorm: 3670692 Milliliter 11/07/2016 No longer Active ceftriaxone 500 mg solution for injection RxNorm: 8881185 11/07/2016 No longer Active ceftriaxone 500 mg solution for injection RxNorm: 5268358 12/07/2015 No longer Active Kenalog 40 mg/mL suspension for injection RxNorm: 2441040 1Milliliter 11/24/2015 No longer Active ceftriaxone 500 mg solution for injection RxNorm: 1296428 Milliliter 11/24/2015 No longer Active promethazine 25 mg/mL injection solution RxNorm: 444112 Milliliter 08/27/2015 No longer Active ketorolac 60 mg/2 mL intramuscular solution RxNorm: 575004 Milliliter 08/27/2015 No longer Active Kenalog 40 mg/mL suspension for injection RxNorm: 8250596 Milliliter 08/10/2015 No longer Active ceftriaxone 500 mg solution for injection RxNorm: 8093230 08/10/2015 No longer Active ceftriaxone 500 mg solution for injection RxNorm: 8440817 1Milliliter 07/28/2015 No longer Active Kenalog 40 mg/mL suspension for injection RxNorm: 0333443 Milliliter 03/19/2015 No longer Active Kenalog 40 mg/mL suspension for injection RxNorm: 2646419 Milliliter 06/23/2014 No longer Active ceftriaxone 500 mg solution for injection RxNorm: 084797 06/23/2014 No longer Active Rocephin 500 mg solution for injection RxNorm: 260531 1mlMilliliter 09/24/2013 No longer Active Rocephin 500 mg solution for injection RxNorm: 580774 1Milliliter 09/19/2013 No longer Active Rocephin 500 mg solution for injection RxNorm: 6869790 1 07/10/2013 No longer Active Kenalog 40 mg/mL suspension for injection RxNorm: 2897836 1Milliliter 07/10/2013 No longer Active Kenalog 40 mg/mL Susp for Injection RxNorm: 2456807 1Milliliter 09/24/2012 No longer Active Rocephin 500 mg Solution for Injection RxNorm: 8914721 02/15/2012 No longer Active Influenza Virus Vaccine 0.5 mL RxNorm: 05/23/2011 No longer Active Immunizations Vaccine Codes Date Status Influenza CVX: 141 06/24/2013 completed Pneumococcal CVX: 33 06/24/2013 completed PPD Unknown 05/13/2013 completed Assessments Condition Codes Effective Dates Essential (primary) hypertension ICD-10: I10 ICD-9: 401.1 [...] Visit Reason For Visit Effective Dates Notes hypertension 11/13/2018 hypertension 10/30/2018 eye discharge 10/08/2018 [...] Ord30 C/HDL 4.3 Ratio 01/01/2019 Comp Metabolic Xzk700 NA 140 mEq/L 01/01/2019 Comp Metabolic Jxa368 K 3.8 mEq/L 01/01/2019 Comp Metabolic Psf385 CL 103 mEq/L 01/01/2019 Comp Metabolic Ped005 CO2 28.0 mEq/L 01/01/2019 Comp Metabolic Fvp645 ANION GAP 13 01/01/2019 Comp Metabolic Gkn584 GLUCOSE 93 mg/dL 01/01/2019 Comp Metabolic Ltq965 Creat 0.7 mg/dL 01/01/2019 Comp Metabolic Hxm810 eGFR 86 ml/min/1.73m2 01/01/2019 Comp Metabolic Cxl884 BUN 21 mg/dL 01/01/2019 Comp Metabolic Iwd825 B/C Ratio 29.6 Ratio 01/01/2019 Comp Metabolic Gft697 CALCIUM 9.4 mg/dL 01/01/2019 Comp Metabolic Ome287 ALK PHOS 67 U/L 01/01/2019 Comp Metabolic Uqo956 AST(SGOT) 27 U/L 01/01/2019 Comp Metabolic Lbw773 ALT(SGPT) 30 U/L 01/01/2019 Comp Metabolic Jgv856 BILI T 0.5 mg/dL 01/01/2019 Comp Metabolic Pzr361 ALBUMIN 4.0 g/dL 01/01/2019 Comp Metabolic Kwq874 TPRO 6.8 g/dL 01/01/2019 Comp Metabolic Cms031 GLOB 2.8 g/dL 01/01/2019 Comp Metabolic Gmk957 A/G Ratio 1.4 Ratio 01/01/2019 Comp Metabolic Sop600 Osmo 282 mOsmo 01/01/2019 Free T4 Ppo122 FREE T4 0.71 ng/dL 10/31/2018 Tsh Ord6 TSH (3rd IS) 7.87 uIU/mL 10/31/2018 Lipid Ord30 CHOL 170 mg/dL 10/31/2018 Lipid Ord30 HDL 53.0 mg/dl 10/31/2018 Lipid Ord30 TRIG 85 mg/dL 10/31/2018 Lipid Ord30 LDL 100 mg/dL 10/31/2018 Lipid Ord30 C/HDL 3.2 Ratio 10/31/2018 Comp Metabolic Kht540 NA 142 mEq/L 10/31/2018 Comp Metabolic Tmc623 K 4.0 mEq/L 10/31/2018 Comp Metabolic Jnu674 CL 106 mEq/L 10/31/2018 Comp Metabolic Cdv664 CO2 27.0 mEq/L 10/31/2018 Comp Metabolic Cpk432 ANION GAP 13 10/31/2018 Comp Metabolic Kxw097 GLUCOSE 114 mg/dL 10/31/2018 Comp Metabolic Iqw244 Creat 0.7 mg/dL 10/31/2018 Comp Metabolic Gdo978 eGFR 90 ml/min/1.73m2 10/31/2018 Comp Metabolic Tzw912 BUN 21 mg/dL 10/31/2018 Comp Metabolic Mvv712 B/C Ratio 30.9 Ratio 10/31/2018 Comp Metabolic Nqw718 CALCIUM 9.7 mg/dL 10/31/2018 Comp Metabolic Puo865 ALK PHOS 63 U/L 10/31/2018 Comp Metabolic Tpt072 AST(SGOT) 24 U/L 10/31/2018 Comp Metabolic Rqr848 ALT(SGPT) 21 U/L 10/31/2018 Comp Metabolic Jga758 BILI T 0.6 mg/dL 10/31/2018 Comp Metabolic Oue255 ALBUMIN 4.1 g/dL 10/31/2018 Comp Metabolic Ysp672 TPRO 6.6 g/dL 10/31/2018 Comp Metabolic Wbs101 GLOB 2.5 g/dL 10/31/2018 Comp Metabolic Ror495 A/G Ratio 1.7 Ratio 10/31/2018 Comp Metabolic Bsj194 Osmo 287 mOsmo 10/31/2018 Cbc With Differential [...] 30.9 pg 10/31/2018 Cbc With Differential Ord2 [place]% 8.0 % 10/31/2018 Cbc With Differential Ord2 [...] 1.88 K/ul 10/31/2018 Cbc With Differential Ord2 [place] ABS# 0.6 K/ul 10/31/2018 Cbc With Differential Ord2 Eos ABS# 0.5 K/ul 10/31/2018 Cbc With Differential Ord2 Baso ABS# 0.1 K/ul 10/31/2018 Comp Metabolic Zdj450 NA 141 mEq/L 09/12/2017 Comp Metabolic Pdp930 K 4.1 mEq/L 09/12/2017 Comp Metabolic Gmb973 CL 105 mEq/L 09/12/2017 Comp Metabolic Wyb304 CO2 30.0 mEq/L 09/12/2017 Comp Metabolic Cyl690 ANION GAP 10 09/12/2017 Comp Metabolic Fed130 GLUCOSE 97 mg/dL 09/12/2017 Comp Metabolic Kvl640 Creat 0.7 mg/dL 09/12/2017 Comp Metabolic Iuj101 eGFR 91 ml/min/1.73m2 09/12/2017 Comp Metabolic Ciu886 BUN 18 mg/dL 09/12/2017 Comp Metabolic Ahk441 B/C Ratio 26.5 Ratio 09/12/2017 Comp Metabolic Hze435 CALCIUM 9.7 mg/dL 09/12/2017 Comp Metabolic Ied800 ALK PHOS 60 U/L 09/12/2017 Comp Metabolic Hok926 AST(SGOT) 22 U/L 09/12/2017 Comp Metabolic Oxs886 ALT(SGPT) 23 U/L 09/12/2017 Comp Metabolic Xjb220 BILI T 0.4 mg/dL 09/12/2017 Comp Metabolic Ovl183 ALBUMIN 3.8 g/dL 09/12/2017 Comp Metabolic Ooy185 TPRO 6.4 g/dL 09/12/2017 Comp Metabolic Kzp514 GLOB 2.6 g/dL 09/12/2017 Comp Metabolic Hcr157 A/G Ratio 1.5 Ratio 09/12/2017 Comp Metabolic Ttq619 Osmo 283 mOsmo 09/12/2017 Cbc With Differential [...] 30.7 pg 09/12/2017 Cbc With Differential Ord2 [place]% 7.2 % 09/12/2017 Cbc With Differential Ord2 [...] 2.46 K/ul 09/12/2017 Cbc With Differential Ord2 [place] ABS# 0.6 K/ul 09/12/2017 Cbc With Differential [...] 31.4 pg 11/07/2016 Cbc With Differential Ord2 [place]% 6.1 % 11/07/2016 Cbc With Differential Ord2 [...] 2.48 K/ul 11/07/2016 Cbc With Differential Ord2 [place] ABS# 0.6 K/ul 11/07/2016 Cbc With Differential Ord2 Eos ABS# 0.3 K/ul 11/07/2016 Cbc With Differential Ord2 Baso ABS# 0.1 K/ul 11/07/2016 Comp Metabolic Ggg247 NA 139 mEq/L 11/07/2016 Comp Metabolic Fnm824 K 3.8 mEq/L 11/07/2016 Comp Metabolic Rnu282 CL 106 mEq/L 11/07/2016 Comp Metabolic Nfi783 CO2 25.0 mEq/L 11/07/2016 Comp Metabolic Tdh389 ANION GAP 12 11/07/2016 Comp Metabolic Iow223 GLUCOSE 98 mg/dL 11/07/2016 Comp Metabolic Cjs006 Creat 0.8 mg/dL 11/07/2016 Comp Metabolic Pts476 eGFR 71 ml/min/1.73m2 11/07/2016 Comp Metabolic Lvu593 BUN 36 mg/dL 11/07/2016 Comp Metabolic Fvn697 B/C Ratio 42.9 Ratio 11/07/2016 Comp Metabolic Bec271 CALCIUM 9.9 mg/dL 11/07/2016 Comp Metabolic Qee387 ALK PHOS 57 U/L 11/07/2016 Comp Metabolic Xiz719 AST(SGOT) 24 U/L 11/07/2016 Comp Metabolic Xlf687 ALT(SGPT) 28 U/L 11/07/2016 Comp Metabolic Lto824 BILI T 0.4 mg/dL 11/07/2016 Comp Metabolic Yih876 ALBUMIN 4.2 g/dL 11/07/2016 Comp Metabolic Uiy733 TPRO 7.0 g/dL 11/07/2016 Comp Metabolic Ijw993 GLOB 2.8 g/dL 11/07/2016 Comp Metabolic Tff426 A/G Ratio 1.5 Ratio 11/07/2016 Comp Metabolic Wkj544 Osmo 286 mOsmo 11/07/2016 Free T4 Qka865 FREE T4 0.75 ng/dL 11/07/2016 Tsh Ord6 hTSH II 3.46 uIU/mL 11/07/2016 Comp Metabolic Ztc299 NA 138 mEq/L 05/10/2016 Comp Metabolic Vfd949 K 3.8 mEq/L 05/10/2016 Comp Metabolic Lre685 CL 102 mEq/L 05/10/2016 Comp Metabolic Fck892 CO2 29.0 mEq/L 05/10/2016 Comp Metabolic Mtr037 ANION GAP 11 05/10/2016 Comp Metabolic Phc852 GLUCOSE 107 mg/dL 05/10/2016 Comp Metabolic Tym404 Creat 0.7 mg/dL 05/10/2016 Comp Metabolic Rui085 eGFR 93 ml/min/1.73m2 05/10/2016 Comp Metabolic Jsh994 BUN 18 mg/dL 05/10/2016 Comp Metabolic Eyb440 B/C Ratio 26.9 Ratio 05/10/2016 Comp Metabolic Esi169 CALCIUM 9.8 mg/dL 05/10/2016 Comp Metabolic Umh102 ALK PHOS 60 U/L 05/10/2016 Comp Metabolic Ten895 AST(SGOT) 21 U/L 05/10/2016 Comp Metabolic Kdg856 ALT(SGPT) 23 U/L 05/10/2016 Comp Metabolic Zzd672 BILI T 0.5 mg/dL 05/10/2016 Comp Metabolic Pns160 ALBUMIN 4.1 g/dL 05/10/2016 Comp Metabolic Icz854 TPRO 6.7 g/dL 05/10/2016 Comp Metabolic Xkf459 GLOB 2.7 g/dL 05/10/2016 Comp Metabolic Cza230 A/G Ratio 1.5 Ratio 05/10/2016 Comp Metabolic Npc661 Osmo 278 mOsmo 05/10/2016 Lipid Ord30 CHOL 169 mg/dL 05/10/2016 Lipid Ord30 HDL 50.0 mg/dl 05/10/2016 Lipid Ord30 TRIG 161 mg/dL 05/10/2016 Lipid Ord30 LDL 87 mg/dL 05/10/2016 Lipid Ord30 C/HDL 3.4 Ratio 05/10/2016 Comp Metabolic Iyh413 NA 137 mEq/L 06/12/2015 Comp Metabolic Rhd582 K 3.8 mEq/L 06/12/2015 Comp Metabolic Zpi261 CL 104 mEq/L 06/12/2015 Comp Metabolic Woa165 CO2 24.0 mEq/L 06/12/2015 Comp Metabolic Ykj630 ANION GAP 13 06/12/2015 Comp Metabolic Qck025 GLUCOSE 92 mg/dL 06/12/2015 Comp Metabolic Jcc481 Creat 0.7 mg/dL 06/12/2015 Comp Metabolic Wxg294 eGFR 87 ml/min/1.73m2 06/12/2015 Comp Metabolic Acv676 BUN 31 mg/dL 06/12/2015 Comp Metabolic Vnq581 B/C Ratio 43.7 Ratio 06/12/2015 Comp Metabolic Yhb609 CALCIUM 10.0 mg/dL 06/12/2015 Comp Metabolic Sfa798 ALK PHOS 58 U/L 06/12/2015 Comp Metabolic Lqv467 AST(SGOT) 32 U/L 06/12/2015 Comp Metabolic Xjh889 ALT(SGPT) 33 U/L 06/12/2015 Comp Metabolic Gwa679 BILI T 0.5 mg/dL 06/12/2015 Comp Metabolic Hjq810 ALBUMIN 4.1 g/dL 06/12/2015 Comp Metabolic Lti807 TPRO 6.6 g/dL 06/12/2015 Comp Metabolic Vrm281 GLOB 2.5 g/dL 06/12/2015 Comp Metabolic Zcr263 A/G Ratio 1.6 Ratio 06/12/2015 Comp Metabolic Rbb829 Osmo 280 mOsmo 06/12/2015 Cbc With Differential [...] Differential Ord2 RDW 14.2 % 06/12/2015 CBC 0415118 WBC 8.7 10e9/L 04/30/2013 CBC 9518101 RBC 4.63 10e12/L 04/30/2013 CBC 3309801 HGB 14.1 g/dL 04/30/2013 CBC 7762025 HCT DET 42.2 % 04/30/2013 CBC 4703306 MCV 91.1 fL 04/30/2013 CBC 5194493 MCH 30.5 pg 04/30/2013 CBC 6938477 MCHC 33.4 g/dL 04/30/2013 CBC 1801080 PLT 248 10e9/L 04/30/2013 CBC 1684577 MPV 12.1 fL 04/30/2013 CBC 8053567 LARA % 59.0 % 04/30/2013 CBC 3983033 LY % 27.6 % 04/30/2013 CBC 0518391 MON % 8.0 % 04/30/2013 CBC 9542096 EOS % 4.8 % 04/30/2013 CBC 2418158 BASO % 0.6 % 04/30/2013 CBC 9758991 RDW 13.3 % 04/30/2013 CBC 6763584 ABS LARA 5.13 10e9/L 04/30/2013 CBC 2257812 ABS LYMPH 2.40 10e9/L 04/30/2013 CBC 1403072 ABS MONO 0.70 10e9/L 04/30/2013 CBC 9900605 ABS EOS 0.42 10e9/L 04/30/2013 CBC 4671370 ABS BASO 0.05 10e9/L 04/30/2013 CBC 5882873 RDW-SD 43.1 fL 04/30/2013 TSH 7349090 TSH 4.339 uIU/ML 04/30/2013 A1C HPLC 8918961 A1C HPLC 74716-2 5.6 % 04/30/2013 FREE T4 5825008 FREE T4 0.84 NG/DL 04/30/2013 GFR CALC 6881875 GFR AA >60 ML/MIN 04/30/2013 GFR CALC 0438879 GFR NON-AA >60 ML/MIN 04/30/2013 CHEM 14 8321864 AST 22 U/L 04/30/2013 CHEM 14 1208010 ALT 22 IU/L 04/30/2013 CHEM 14 8666379 BUN 24 MG/DL 04/30/2013 CHEM 14 1733147 ALBUMIN 4.2 GM/DL 04/30/2013 CHEM 14 0940007 CHLORIDE 107 MMOL/L 04/30/2013 CHEM 14 2786620 BILI TOT 0.3 MG/DL 04/30/2013 CHEM 14 2769445 ALK PHOS 88 U/L 04/30/2013 CHEM 14 3125664 SODIUM 141 MMOL/L 04/30/2013 CHEM 14 6712478 CREATININE 0.60 MG/DL 04/30/2013 CHEM 14 6819147 CALCIUM 9.9 MG/DL 04/30/2013 CHEM 14 5818027 POTASSIUM 3.7 MMOL/L 04/30/2013 CHEM 14 2527801 PROT TOT 6.6 GM/DL 04/30/2013 CHEM 14 2434956 GLUCOSE 123 MG/DL 04/30/2013 CHEM 14 7072224 BICARB 25 MMOL/L 04/30/2013 CHEM 14 20280301 ANION GAP 9 MEQ/L 04/30/2013 LIPID GRP HDL TEST 46 MG/DL 04/30/2013 LIPID GRP TRIG 148 MG/DL 04/30/2013 LIPID GRP TEST LDL 75 MG/DL 04/30/2013 LIPID GRP CHOL 151 MG/DL 04/30/2013 LIPID GRP RCHOL/HDL 3.28 RATIO 04/30/2013 TSH 3824044 TSH 3.341 uIU/ML 11/29/2012 CBC 7433020 WBC 8.4 10e9/L 11/29/2012 CBC 8291736 RBC 4.77 10e12/L 11/29/2012 CBC 6684594 HGB 14.9 g/dL 11/29/2012 CBC 5691389 HCT DET 44.2 % 11/29/2012 CBC 6432430 MCV 92.7 fL 11/29/2012 CBC 1553540 MCH 31.2 pg 11/29/2012 CBC 6659301 MCHC 33.7 g/dL 11/29/2012 CBC 1310091 PLT 253 10e9/L 11/29/2012 CBC 0389221 MPV 11.8 fL 11/29/2012 CBC 3153157 LARA % 54.9 % 11/29/2012 CBC 2767266 LY % 29.0 % 11/29/2012 CBC 2991522 MON % 10.4 % 11/29/2012 CBC 3674463 EOS % 5.1 % 11/29/2012 CBC 7192287 BASO % 0.6 % 11/29/2012 CBC 3130313 RDW 13.8 % 11/29/2012 CBC 7194367 ABS LARA 4.61 10e9/L 11/29/2012 CBC 0984992 ABS LYMPH 2.44 10e9/L 11/29/2012 CBC 7917303 ABS MONO 0.87 10e9/L 11/29/2012 CBC 5288304 ABS EOS 0.43 10e9/L 11/29/2012 CBC 9486667 ABS BASO 0.05 10e9/L 11/29/2012 CBC 0662134 RDW-SD 45.9 fL 11/29/2012 CHEM 14 4317333 AST 25 U/L 11/29/2012 CHEM 14 7042298 ALT 26 IU/L 11/29/2012 CHEM 14 9688892 BUN 25 MG/DL 11/29/2012 CHEM 14 4035499 ALBUMIN 4.4 GM/DL 11/29/2012 CHEM 14 4356052 CHLORIDE 106 MMOL/L 11/29/2012 CHEM 14 9917710 BILI TOT 0.4 MG/DL 11/29/2012 CHEM 14 8990443 ALK PHOS 86 U/L 11/29/2012 CHEM 14 8226087 SODIUM 141 MMOL/L 11/29/2012 CHEM 14 4925963 CREATININE 0.80 MG/DL 11/29/2012 CHEM 14 7878522 CALCIUM 9.7 MG/DL 11/29/2012 CHEM 14 8788136 POTASSIUM 4.0 MMOL/L 11/29/2012 CHEM 14 5587150 PROT TOT 6.6 GM/DL 11/29/2012 CHEM 14 6803672 GLUCOSE 112 MG/DL 11/29/2012 CHEM 14 9012367 BICARB 29 MMOL/L 11/29/2012 CHEM 14 4706390 ANION GAP 6 MEQ/L 11/29/2012 A1C HPLC 8077892 A1C HPLC 76424-4 5.5 % 11/29/2012 LIPID GRP HDL TEST 54 MG/DL 11/29/2012 LIPID GRP TRIG 77 MG/DL 11/29/2012 LIPID GRP 1553087 TEST LDL 78 MG/DL 11/29/2012 LIPID GRP CHOL 147 MG/DL 11/29/2012 LIPID GRP RCHOL/HDL 2.72 RATIO 11/29/2012 FREE T4 2032242 FREE T4 1.23 NG/DL 11/29/2012 GFR CALC 6631690 GFR AA >60 ML/MIN 11/29/2012 GFR CALC 1433652 GFR NON-AA >60 ML/MIN 11/29/2012 CHEM 14 7497172 AST 23 U/L 08/07/2012 CHEM 14 9936627 ALT 34 IU/L 08/07/2012 CHEM 14 6510525 BUN 26 MG/DL 08/07/2012 CHEM 14 3693810 ALBUMIN 4.4 GM/DL 08/07/2012 CHEM 14 5976225 CHLORIDE 105 MMOL/L 08/07/2012 CHEM 14 9256728 BILI TOT 0.5 MG/DL 08/07/2012 CHEM 14 4695430 ALK PHOS 79 U/L 08/07/2012 CHEM 14 1255722 SODIUM 140 MMOL/L 08/07/2012 CHEM 14 8195456 CREATININE 0.71 MG/DL 08/07/2012 CHEM 14 8169113 CALCIUM 10.4 MG/DL 08/07/2012 CHEM 14 3600436 POTASSIUM 3.8 MMOL/L 08/07/2012 CHEM 14 4346706 PROT TOT 6.8 GM/DL 08/07/2012 CHEM 14 0404107 GLUCOSE 104 MG/DL 08/07/2012 CHEM 14 2359990 BICARB 27 MMOL/L 08/07/2012 CHEM 14 1753995 ANION GAP 8 MEQ/L 08/07/2012 A1C HPLC 1230690 A1C HPLC 25440-5 5.4 % 08/07/2012 FREE T4 0661005 FREE T4 1.11 NG/DL 08/07/2012 LIPID GRP HDL TEST 50 MG/DL 08/07/2012 LIPID GRP TRIG 127 MG/DL 08/07/2012 LIPID GRP TEST LDL 93 MG/DL 08/07/2012 LIPID GRP CHOL 168 MG/DL 08/07/2012 LIPID GRP RCHOL/HDL 3.36 RATIO 08/07/2012 CBC 5689840 WBC 8.7 10e9/L 08/07/2012 CBC 5640814 RBC 4.67 10e12/L 08/07/2012 CBC 9439936 HGB 14.4 g/dL 08/07/2012 CBC 8975490 HCT DET 42.8 % 08/07/2012 CBC 6994147 MCV 91.6 fL 08/07/2012 CBC 4732400 MCH 30.8 pg 08/07/2012 CBC 4628730 MCHC 33.6 g/dL 08/07/2012 CBC 1816380 PLT 271 10e9/L 08/07/2012 CBC 8570445 MPV 12.3 fL 08/07/2012 CBC 1758038 LARA % 50.6 % 08/07/2012 CBC 4580401 LY % 34.9 % 08/07/2012 CBC 3279868 MON % 9.1 % 08/07/2012 CBC 8094020 EOS % 5.1 % 08/07/2012 CBC 5075278 BASO % 0.3 % 08/07/2012 CBC 1881642 RDW 13.6 % 08/07/2012 CBC 6900762 ABS LARA 4.40 10e9/L 08/07/2012 CBC 2174724 ABS LYMPH 3.04 10e9/L 08/07/2012 CBC 0489317 ABS MONO 0.79 10e9/L 08/07/2012 CBC 2161085 ABS EOS 0.44 10e9/L 08/07/2012 CBC 6215646 ABS BASO 0.03 10e9/L 08/07/2012 CBC 7015190 RDW-SD 44.1 fL 08/07/2012 TSH 5903517 TSH 7.419 uIU/ML 08/07/2012 GFR CALC 3496945 GFR AA >60 ML/MIN 08/07/2012 GFR CALC 0315677 GFR NON-AA >60 ML/MIN 08/07/2012 A1C HPLC 3814633 A1C HPLC 57229-4 5.3 % 02/21/2012 TSH 5029087 TSH 0.832 uIU/ML 02/16/2012 FREE T4 4029070 FREE T4 1.04 NG/DL 02/16/2012 GFR CALC 6042928 GFR AA >60 ML/MIN 02/16/2012 GFR CALC 0565369 GFR NON-AA >60 ML/MIN 02/16/2012 BMP 4697942 GLUCOSE 112 MG/DL 02/16/2012 BMP 0230214 CREATININE 0.65 MG/DL 02/16/2012 BMP 3795856 BUN 17 MG/DL 02/16/2012 BMP 6045676 SODIUM 144 MMOL/L 02/16/2012 BMP 5781876 POTASSIUM 4.0 MMOL/L 02/16/2012 BMP 5671466 CHLORIDE 107 MMOL/L 02/16/2012 BMP 4778665 BICARB 29 MMOL/L 02/16/2012 BMP 5488629 ANION GAP 8 MEQ/L 02/16/2012 BMP 5269021 CALCIUM 9.5 MG/DL 02/16/2012 CBC 7538784 WBC 7.1 10e9/L 02/16/2012 CBC 3351995 RBC 4.47 10e12/L 02/16/2012 CBC 6191640 HGB 13.5 g/dL 02/16/2012 CBC 6022014 HCT DET 40.7 % 02/16/2012 CBC 9982591 MCV 91.1 fL 02/16/2012 CBC 0484031 MCH 30.2 pg 02/16/2012 CBC 3705327 MCHC 33.2 g/dL 02/16/2012 CBC 5905969 PLT 238 10e9/L 02/16/2012 CBC 7034879 MPV 11.4 fL 02/16/2012 CBC 5641259 LARA % 55.7 % 02/16/2012 CBC 4969778 LY % 29.6 % 02/16/2012 CBC 2095658 MON % 9.2 % 02/16/2012 CBC 8600900 EOS % 5.1 % 02/16/2012 CBC 5208177 BASO % 0.4 % 02/16/2012 CBC 4829950 RDW 13.0 % 02/16/2012 CBC 9012539 ABS LARA 3.95 10e9/L 02/16/2012 CBC 3573275 ABS LYMPH 2.10 10e9/L 02/16/2012 CBC 7567228 ABS MONO 0.65 10e9/L 02/16/2012 CBC 7389277 ABS EOS 0.36 10e9/L 02/16/2012 CBC 6311322 ABS BASO 0.03 10e9/L 02/16/2012 CBC 6019110 RDW-SD 42.4 fL 02/16/2012 URINALYSIS NONAUTO W/O SCOPE 72313 Specific [place] 1.015 DateTime(Free Text in Aprima) URINALYSIS NONAUTO W/O SCOPE 61796 PH 7 DateTime(Free Text in Aprima) URINALYSIS NONAUTO W/O SCOPE 45802 GLUCOSE neg DateTime(Free Text in Apr[employer]) URINALYSIS NONAUTO W/O SCOPE 06458 Protein 1+ DateTime(Free Text in Apr[employer]) URINALYSIS NONAUTO W/O SCOPE 16743 Blood neg DateTime(Free Text in Aprima) URINALYSIS NONAUTO W/O SCOPE 81489 Bilirubin neg DateTime(Free Text in Aprima) URINALYSIS NONAUTO W/O SCOPE 41039 Ketones neg DateTime(Free Text in Aprima) URINALYSIS NONAUTO W/O SCOPE 70897 Urobilinogen neg DateTime(Free Text in Aprima) URINALYSIS NONAUTO W/O SCOPE 87047 Nitrite postive DateTime(Free Text in Aprima) URINALYSIS NONAUTO W/O SCOPE 08331 Leukocytes 3+ DateTime(Free Text in Aprima) URINALYSIS NONAUTO W/O SCOPE 22060 Specific [place] 1.030 DateTime(Free Text in Aprima) URINALYSIS NONAUTO W/O SCOPE 58195 PH 6 DateTime(Free Text in Aprima) URINALYSIS NONAUTO W/O SCOPE 89983 GLUCOSE neg DateTime(Free Text in Aprima) URINALYSIS NONAUTO W/O SCOPE 93762 Protein neg DateTime(Free Text in Aprima) URINALYSIS NONAUTO W/O SCOPE 00355 Blood neg DateTime(Free Text in Aprima) URINALYSIS NONAUTO W/O SCOPE 76136 Bilirubin neg DateTime(Free Text in Aprima) URINALYSIS NONAUTO W/O SCOPE 32878 Ketones neg DateTime(Free Text in Aprima) URINALYSIS NONAUTO W/O SCOPE 00127 Urobilinogen neg DateTime(Free Text in Aprima) URINALYSIS NONAUTO W/O SCOPE 73450 Nitrite neg DateTime(Free Text in Aprima) URINALYSIS NONAUTO W/O SCOPE 45400 Leukocytes trace DateTime(Free Text in Aprima) URINALYSIS NONAUTO W/O SCOPE 60477 Specific [place] 1.005 DateTime(Free Text in Aprima) URINALYSIS NONAUTO W/O SCOPE 29182 PH 5 DateTime(Free Text in Aprima) URINALYSIS NONAUTO W/O SCOPE 67650 GLUCOSE neg DateTime(Free Text in Aprima) URINALYSIS NONAUTO W/O SCOPE 29662 Protein neg DateTime(Free Text in Aprima) URINALYSIS NONAUTO W/O SCOPE 43185 Blood neg DateTime(Free Text in Aprima) URINALYSIS NONAUTO W/O SCOPE 21413 Bilirubin neg DateTime(Free Text in Aprima) URINALYSIS NONAUTO W/O SCOPE 17211 Ketones neg DateTime(Free Text in Aprima) URINALYSIS NONAUTO W/O SCOPE 85951 Urobilinogen neg DateTime(Free Text in Aprima) URINALYSIS NONAUTO W/O SCOPE 35017 Nitrite neg DateTime(Free Text in Aprima) URINALYSIS NONAUTO W/O SCOPE 61363 Leukocytes neg DateTime(Free Text in Aprima) UA 71687 Specific [place] 1.030 DateTime(Free Text in Aprima) UA 36292 PH 5 DateTime(Free Text in Aprima) UA 16198 GLUCOSE neg DateTime(Free Text in Aprima) UA 58601 Protein trace DateTime(Free Text in Aprima) UA 47551 Blood large DateTime(Free Text in Aprima) UA 31136 Bilirubin neg DateTime(Free Text in Aprima) UA 01079 Ketones neg DateTime(Free Text in Aprima) UA 15791 Urobilinogen neg DateTime(Free Text in ) UA 01433 Nitrite neg DateTime(Free Text in ) UA 69198 Leukocytes large DateTime(Free Text in ) Review of Systems System Result Effective Dates Constitutional No recent illness 11/13/2018 Constitutional No [...] affect 07/16/2018 None Full Exam - General 1995 Psychiatric mood and affect Mood: anxious 07/16/2018 [...] time 01/19/2018 None Full Exam - General 1995 Constitutional general appearance Overall: well developed 11/23/2017 None Full Exam - General 1994 Constitutional general appearance Overall: in no acute distress 11/23/2017 None Full Exam - General 1994 Constitutional general appearance Overall: well nourished 11/23/2017 None Full Exam - General 1995 Ears/Nose/Throat lips/teeth/gingiva Overall: benign lips 11/23/2017 None [...] tenderness 09/19/2013 None Full Exam - General 1995 Abdomen abdominal exam Overall: normal bowel sounds 09/19/2013 None Full Exam - General 1995 Musculoskeletal digits and nails Nails: paronychia 09/19/2013 [...] contact 06/03/2013 None Full Exam - General 1994 Ears/Nose/Throat otoscopic exam Tympanic membrane: air-fluid level 06/03/2013 None Full Exam - General 1994 Ears/Nose/Throat otoscopic exam Tympanic membrane: bulging 06/03/2013 [...] tenderness 05/07/2013 None Full Exam - General 1994 [...] 12/03/2012 None Full Exam - General 1995 Cardiovascular extremities Overall: no clubbing 12/03/2012 None Full Exam - General 1995 Cardiovascular auscultation of heart Overall: regular rate 12/03/2012 None Full Exam - General 1994 Cardiovascular auscultation of heart Overall: normal heart sounds 12/03/2012 None Full Exam - General 1995 Cardiovascular auscultation of heart Overall: no murmurs 12/03/2012 None Full Exam - General 1995 Chest/Breast breast/chest inspection Overall: normal chest shape 12/03/2012 None Full Exam - General 1995 Abdomen abdominal exam Overall: no tenderness 12/03/2012 [...] mastoids 09/10/2012 None Full Exam - General 1994 [...] retractions 09/10/2012 None Full Exam - General 1995 Respiratory respiratory effort/rhythm Overall: normal rate 09/10/2012 None Full Exam - General 1995 Cardiovascular inspection of pedal pulses Overall: strong, equal bilaterally 09/10/2012 None Full Exam - General 1994 Cardiovascular extremities Overall: no clubbing 09/10/2012 None Full Exam - General 1995 Cardiovascular [...] appearance 08/08/2012 None Full Exam - General 1995 Ears/Nose/Throat external ear Overall: no masses 08/08/2012 [...] nourished 02/15/2012 None Full Exam - General 1995 Constitutional general appearance Overall: well developed 02/15/2012 None Full Exam - General 1994 Constitutional general appearance Overall: in no acute distress 02/15/2012 None Full Exam - General 1995 Ears/Nose/Throat external ear Overall: no masses 02/15/2012 None Full Exam - General 1995 Ears/Nose/Throat external ear Overall: normal appearance 02/15/2012 [...] benign 02/15/2012 None Full Exam - General 1995 Musculoskeletal head and neck Overall: head atraumatic [...] Codes Date URINALYSIS NONAUTO W/O SCOPE CPT-4: 65834 07/10/2018 TRIAMCINOLONE ACET INJ NOS CPT-4: J3301 05/28/2018 ROCEPHIN, PER 250 MG CPT- 4: J0696 05/28/2018 ROCEPHIN, PER 250 MG CPT- 4: J0696 01/19/2018 TRIAMCINOLONE ACET INJ NOS CPT-4: J3301 01/19/2018 PPPS, SUBSEQ VISIT CPT- 4: G0439 11/23/2017 TRIAMCINOLONE ACET INJ NOS CPT-4: J3301 06/27/2017 THER/PROPH/DIAG INJ SC/IM CPT-4: 50741 04/20/2017 TRIAMCINOLONE ACET INJ NOS CPT-4: J3301 04/20/2017 TRIAMCINOLONE ACET INJ NOS CPT-4: J3301 03/14/2017 ROCEPHIN, PER 250 MG CPT- 4: J0696 03/14/2017 DESTRUCT PREMALG LESION CPT-4: 21543 12/05/2016 DESTRUCT PREMALG LES 2-14 CPT-4: 81126 12/05/2016 URINALYSIS NONAUTO W/O SCOPE CPT-4: 86837 11/28/2016 ROCEPHIN, PER 250 MG CPT- 4: J0696 11/28/2016 PPPS, SUBSEQ VISIT CPT- 4: G0439 11/07/2016 THER/PROPH/DIAG INJ SC/IM CPT-4: 60029 11/07/2016 TRIAMCINOLONE ACET INJ NOS CPT-4: J3301 11/07/2016 ROCEPHIN, PER 250 MG CPT- 4: J0696 11/07/2016 THER/PROPH/DIAG INJ SC/IM CPT-4: 48744 08/15/2016 TRIAMCINOLONE ACET INJ NOS CPT-4: J3301 08/15/2016 ROCEPHIN, PER 250 MG CPT- 4: J0696 08/15/2016 URINALYSIS NONAUTO W/O SCOPE CPT-4: 33921 05/05/2016 ROCEPHIN, PER 250 MG CPT- 4: J0696 12/07/2015 TRIAMCINOLONE ACET INJ NOS CPT-4: J3301 11/24/2015 ROCEPHIN, PER 250 MG CPT- 4: J0696 11/24/2015 THER/PROPH/DIAG INJ SC/IM CPT-4: 41557 11/24/2015 THER/PROPH/DIAG INJ SC/IM CPT-4: 73281 08/27/2015 KETOROLAC TROMETHAMINE INJ CPT-4: J1885 08/27/2015 PROMETHAZINE HCL INJECTION CPT-4: J2550 08/27/2015 THER/PROPH/DIAG INJ SC/IM CPT-4: 06778 08/10/2015 TRIAMCINOLONE ACET INJ NOS CPT-4: J3301 08/10/2015 ROCEPHIN, PER 250 MG CPT- 4: J0696 08/10/2015 C WOUN RTS (CULTURE OTHR SPECIMN AEROBIC) CPT-4: 54654 07/28/2015 THER/PROPH/DIAG INJ SC/IM CPT-4: 49088 03/19/2015 TRIAMCINOLONE ACET INJ NOS CPT-4: J3301 03/19/2015 ROCEPHIN, PER 250 MG CPT- 4: J0696 06/23/2014 TRIAMCINOLONE ACET INJ NOS CPT-4: J3301 06/23/2014 INJ TRIGGER POINT 1/2 MUSCL CPT-4: 94285 06/05/2014 URINALYSIS NONAUTO W/O SCOPE CPT-4: 53505 02/11/2014 URINALYSIS NONAUTO W/O SCOPE CPT-4: 18756 10/15/2013 ROCEPHIN, PER 250 MG CPT- 4: J0696 09/24/2013 THER/PROPH/DIAG INJ SC/IM CPT-4: 77541 09/19/2013 ROCEPHIN, PER 250 MG CPT- 4: J0696 09/19/2013 PRESCRIP TRANSMIT VIA ERX SY CPT-4: G8553 08/05/2013 ROCEPHIN, PER 250 MG CPT- 4: J0696 07/10/2013 THER/PROPH/DIAG INJ SC/IM CPT-4: 91537 07/10/2013 TRIAMCINOLONE ACET INJ NOS CPT-4: J3301 07/10/2013 PRESCRIP TRANSMIT VIA ERX SY CPT-4: G8553 07/10/2013 91511 EST. PATIENT, LEVEL III CPT-4: 13090 06/03/2013 PRESCRIP TRANSMIT VIA ERX SY CPT-4: G8553 06/03/2013 PRESCRIP TRANSMIT VIA ERX SY CPT-4: G8553 05/07/2013 ROUTINE VENIPUNCTURE CPT- 4: 93026 04/30/2013 ROUTINE VENIPUNCTURE CPT- 4: 94717 11/29/2012 TRIAMCINOLONE ACET INJ NOS CPT-4: J3301 09/24/2012 THER/PROPH/DIAG INJ SC/IM CPT-4: 34196 09/24/2012 URINALYSIS NONAUTO W/O SCOPE CPT-4: 08060 09/24/2012 PRESCRIP TRANSMIT VIA ERX SY CPT-4: G8553 09/24/2012 PRESCRIP TRANSMIT VIA ERX SY CPT-4: G8553 09/10/2012 PRESCRIP TRANSMIT VIA ERX SY CPT-4: G8553 08/08/2012 ROUTINE VENIPUNCTURE CPT- 4: 88435 08/07/2012 ROUTINE VENIPUNCTURE CPT- 4: 10891 02/16/2012 URINALYSIS NONAUTO W/O SCOPE CPT-4: 98797 02/15/2012 ROCEPHIN, PER 250 MG CPT- 4: J0696 02/15/2012 PRESCRIP TRANSMIT VIA ERX SY CPT-4: G8553 02/15/2012 ROUTINE VENIPUNCTURE CPT- 4: 47513 11/08/2011 ROCEPHIN, PER 250 MG CPT- 4: J0696 07/14/2011 THER/PROPH/DIAG INJ SC/IM CPT-4: 59515 07/14/2011 Influenza Virus Vaccine, Split Virus, >3 Yrs, IM CPT-4: 09779 05/23/2011 IMMUNIZATION ADMIN CPT- 4: 28826 05/23/2011 THER/PROPH/DIAG INJ SC/IM CPT-4: 85048 05/03/2011 ROCEPHIN, PER 250 MG CPT- 4: J0696 05/03/2011 TRIAMCINOLONE ACET INJ NOS CPT-4: J3301 05/03/2011 Vital Signs Date Vital 11/27/2018 Blood Pressure 1: 144/82 Code: 8480-6 Heart Rate 1: 67 bpm SpO2: 93% 11/16/2018 Blood Pressure 1: 168/100 Code: 8480-6 Heart Rate 1: 74 bpm SpO2: 96% 11/13/2018 Blood Pressure 1: 184/98 Code: 8480-6 BMI: 32.1 Code: 53441-2 Heart Rate 1: 68 bpm Height: 4'11" SpO2: 96% Weight: 159 lbs 10/30/2018 Blood Pressure 1: 158/98 Code: 8480-6 BMI: 31.7 Code: 79853-2 Heart Rate 1: 80 bpm Height: 4'11" SpO2: 96% Weight: 157 lbs 10/08/2018 Blood Pressure 1: 140/80 Code: 8480-6 BMI: 32.1 Code: 13743-4 Heart Rate 1: 92 bpm Height: 4'11" SpO2: 103% Weight: 159 lbs 07/16/2018 Blood Pressure 1: 142/80 Code: 8480-6 BMI: 31.1 Code: 60024-9 Heart Rate 1: 78 bpm Height: 4'11" SpO2: 98% Weight: 154 lbs 07/10/2018 Blood Pressure 1: 156/82 Code: 8480-6 BMI: 31.1 Code: 67376-3 Heart Rate 1: 63 bpm Height: 4'11" SpO2: 99% Weight: 154 lbs 05/28/2018 Blood Pressure 1: 142/80 Code: 8480-6 Heart Rate 1: 82 bpm Height: SpO2: 97% Temperature: 35.9 (C) / 96.6 (F) Weight: 02/07/2018 Height: Weight: 01/19/2018 Blood Pressure 1: 128/76 Code: 8480-6 BMI: 31.2 Code: 72945-0 Heart Rate 1: 71 bpm Height: 4'11" SpO2: 96% Temperature: 36.5 (C) / 97.7 (F) Weight: 154 lbs 8 oz 11/23/2017 Blood Pressure 1: 146/80 Code: 8480-6 BMI: 31.7 Code: 77306-6 Heart Rate 1: 64 bpm Height: 4'11" SpO2: 97% Waist Measure (cm): 89 cm Weight: 157 lbs 09/12/2017 Blood Pressure 1: 140/86 Code: 8480-6 Heart Rate 1: 62 bpm SpO2: 96% Temperature: 36.6 (C) / 97.8 (F) Weight: 153 lbs 07/25/2017 Blood Pressure 1: 140/72 Code: 8480-6 BMI: 31.3 Code: 06162-3 Heart Rate 1: 76 bpm Height: 4'11" SpO2: 97% Temperature: 37.2 (C) / 99.0 (F) Weight: 155 lbs 06/27/2017 Blood Pressure 1: 144/84 Code: 8480-6 BMI: 31.1 Code: 34547-0 Heart Rate 1: 63 bpm Height: 4'11" SpO2: 99% Temperature: 36.4 (C) / 97.6 (F) Weight: 154 lbs 05/08/2017 Blood Pressure 1: 142/86 Code: 8480-6 BMI: 30.9 Code: 10909-2 Height: 4'11" Temperature: 36.3 (C) / 97.4 (F) Weight: 153 lbs 03/14/2017 Blood Pressure 1: 146/82 Code: 8480-6 BMI: 30.9 Code: 09772-1 Heart Rate 1: 64 bpm Height: 4'11" SpO2: 94% Weight: 153 lbs 02/20/2017 Blood Pressure 1: 142/80 Code: 8480-6 BMI: 30.9 Code: 89646-3 Heart Rate 1: 75 bpm Height: 4'11" SpO2: 97% Weight: 153 lbs 02/06/2017 Blood Pressure 1: 138/90 Code: 8480-6 BMI: 31.5 Code: 34835-5 Heart Rate 1: 61 bpm Height: 4'11" SpO2: 98% Weight: 156 lbs 12/05/2016 Blood Pressure 1: 122/72 Code: 8480-6 Heart Rate 1: 59 bpm Height: 4'11" SpO2: 98% Weight: 11/28/2016 Blood Pressure 1: 154/86 Code: 8480-6 BMI: 31.3 Code: 18849-7 Heart Rate 1: 64 bpm Height: 4'11" SpO2: 94% Temperature: 36.2 (C) / 97.2 (F) Weight: 155 lbs 11/07/2016 Blood Pressure 1: 128/64 Code: 8480-6 BMI: 31.5 Code: 78024-4 Heart Rate 1: 59 bpm Height: 4'11" SpO2: 97% Weight: 156 lbs 08/15/2016 Blood Pressure 1: 110/62 Code: 8480-6 BMI: 31.5 Code: 79846-1 Heart Rate 1: 76 bpm Height: 4'11" SpO2: 97% Weight: 156 lbs 06/07/2016 Blood Pressure 1: 120/80 Code: 8480-6 BMI: 32.9 Code: 34011-8 Heart Rate 1: 63 bpm Height: 4'11" SpO2: 93% Temperature: 36.5 (C) / 97.7 (F) Weight: 163 lbs 03/15/2016 Blood Pressure 1: 90/42 Code: 8480-6 Heart Rate 1: 65 bpm SpO2: 94% 03/14/2016 Blood Pressure 1: 188/110 Code: 8480-6 Heart Rate 1: 68 bpm SpO2: 96% 02/22/2016 Blood Pressure 1: 158/80 Code: 8480-6 BMI: 32.7 Code: 06502-7 Heart Rate 1: 71 bpm Height: 4'11" SpO2: 95% Weight: 162 lbs 12/07/2015 Blood Pressure 1: 140/88 Code: 8480-6 BMI: 32.9 Code: 89434-6 Heart Rate 1: 99 bpm Height: 4'11" SpO2: 94% Temperature: 35.9 (C) / 96.6 (F) Weight: 163 lbs 11/24/2015 Blood Pressure 1: 144/78 Code: 8480-6 BMI: 33.7 Code: 92551-6 Heart Rate 1: 60 bpm Height: 4'11" SpO2: 98% Temperature: 36.6 (C) / 97.9 (F) Weight: 167 lbs 08/27/2015 Blood Pressure 1: 164/82 Code: 8480-6 BMI: 32.3 Code: 01454-6 Heart Rate 1: 60 bpm Height: 4'11" SpO2: 93% Weight: 160 lbs 08/10/2015 Blood Pressure 1: 130/60 Code: 8480-6 BMI: 32.5 Code: 41672-1 Heart Rate 1: 64 bpm Height: 4'11" SpO2: 97% Weight: 161 lbs 07/28/2015 Blood Pressure 1: 124/68 Code: 8480-6 BMI: 32.5 Code: 68535-0 Heart Rate 1: 69 bpm Height: 4'11" SpO2: 97% Weight: 161 lbs 06/11/2015 Blood Pressure 1: 148/80 Code: 8480-6 BMI: 32.9 Code: 10220-3 Heart Rate 1: 70 bpm Height: 4'11" SpO2: 94% Weight: 163 lbs 03/19/2015 Blood Pressure 1: 150/102 Code: 8480-6 Blood Pressure 2: 152/92 Code: 8480-6 BMI: 32.5 Code: 88424-8 Heart Rate 1: 71 bpm Height: 4'11" SpO2: 96% Weight: 161 lbs 01/07/2015 Blood Pressure 1: 126/84 Code: 8480-6 Heart Rate 1: 80 bpm Height: 4'11" 09/23/2014 Blood Pressure 1: 112/72 Code: 8480-6 BMI: 33.9 Code: 11454-7 Heart Rate 1: 72 bpm Height: 4'11" Weight: 168 lbs 08/05/2014 Blood Pressure 1: 140/86 Code: 8480-6 BMI: 33.3 Code: 83547-8 Height: 4'11" Weight: 165 lbs 06/23/2014 Blood Pressure 1: 132/70 Code: 8480-6 BMI: 32.9 Code: 38851-4 Heart Rate 1: 58 bpm Height: 4'11" Temperature: 36.0 (C) / 96.8 (F) Weight: 163 lbs 06/05/2014 Blood Pressure 1: 121/85 Code: 8480-6 BMI: 34.3 Code: 14819-5 Height: 4'11" Weight: 170 lbs 04/03/2014 Blood Pressure 1: 128/80 Code: 8480-6 Heart Rate 1: 88 bpm Weight: 167 lbs 03/07/2014 Blood Pressure 1: 122/82 Code: 8480-6 BMI: 33.9 Code: 67821-7 Heart Rate 1: 68 bpm Height: 4'11" Weight: 168 lbs 11/21/2013 Blood Pressure 1: 100/58 Code: 8480-6 BMI: 33.7 Code: 65187-6 Heart Rate 1: 64 bpm Height: 4'11" Weight: 167 lbs 09/24/2013 Blood Pressure 1: 148/88 Code: 8480-6 Heart Rate 1: 68 bpm Weight: 09/19/2013 Blood Pressure 1: 120/80 Code: 8480-6 BMI: 33.9 Code: 84439-3 Heart Rate 1: 80 bpm Height: 4'11" Temperature: 36.9 (C) / 98.5 (F) Weight: 168 lbs 08/05/2013 Blood Pressure 1: 128/80 Code: 8480-6 BMI: 34.3 Code: 57789-0 Heart Rate 1: 64 bpm Height: 4'11" Temperature: 36.2 (C) / 97.2 (F) Weight: 170 lbs 07/10/2013 Blood Pressure 1: 120/84 Code: 8480-6 BMI: 36.0 Code: 27797-4 Heart Rate 1: 90 bpm Height: 4'11" SpO2: 97% Temperature: 36.8 (C) / 98.2 (F) Weight: 178 lbs 06/03/2013 Blood Pressure 1: 136/94 Code: 8480-6 BMI: 34.7 Code: 88888-9 Heart Rate 1: 68 bpm Height: 4'11" Temperature: 36.7 (C) / 98.0 (F) Weight: 172 lbs 05/13/2013 Blood Pressure 1: 132/90 Code: 8480-6 Heart Rate 1: 68 bpm 05/07/2013 Blood Pressure 1: 168/100 Code: 8480-6 BMI: 34.3 Code: 17580-6 Heart Rate 1: 76 bpm Height: 4'11" Weight: 170 lbs 12/03/2012 Blood Pressure 1: 142/78 Code: 8480-6 BMI: 33.5 Code: 81199-7 Heart Rate 1: 76 bpm Height: 4'11" Weight: 166 lbs 09/24/2012 Blood Pressure 1: 116/70 Code: 8480-6 Heart Rate 1: 68 bpm Respiratory Rate: 16 bpm Temperature: 36.9 (C) / 98.4 (F) Weight: 162 lbs 09/10/2012 Blood Pressure 1: 116/80 Code: 8480-6 BMI: 33.7 Code: 08349-6 Heart Rate 1: 76 bpm Height: 4'11" [...] 1: 149/85 Code: 8480-6 BMI: 32.9 Code: 42311-0 Heart Rate 1: 79 bpm Height: 4'11" Weight: 164 lbs 05/03/2011 Blood Pressure 1: 122/79 Code: 8480-6 BMI: 30.8 Code: 78859-4 Heart Rate 1: 72 bpm Height: 5'1" Weight: 163 lbs 04/25/2011 Blood Pressure 1: 137/84 Code: 8480-6 BMI: 31.0 Code: 79678-9 Heart Rate 1: 63 bpm Height: 5'1" Respiratory Rate: 20 bpm Weight: 164 lbs Functional Status No Functional Status data History of Present Illness Symptom Name Status Result Effective Date Notes Quality chronic 11/13/2018 None Quality primary hypertension [...] surg in december. then took trip to [facility] to see mother and has had swelling [...] Quality chronic 08/01/2011 states went shopping on [employer] over night without taking any of medications [...] data Encounters Encounter Performer Location Codes Date ([id number]) Miscellaneous no charge Diagnosis: Essential (primary) hypertension[ICD10: I10] Melba Goldman MD, [facility] CPT-4: 73712 11/16/2018 ([id number]) 62606 EST. PATIENT, LEVEL III Diagnosis: Essential (primary) hypertension[ICD10: I10] Shahida Goldman MD, [facility] CPT-4: 06504 11/13/2018 ([id number]) 45698 EST. PATIENT, LEVEL IV Diagnosis: Essential (primary) hypertension[ICD10: I10] Diagnosis: Mixed hyperlipidemia[ICD10: E78.2] Diagnosis: Hypothyroidism, unspecified[ICD10: E03.9] Shahida Goldman MD, [facility] CPT-4: 77740 10/30/2018 65932 EST. PATIENT, LEVEL III Diagnosis: Other mucopurulent conjunctivitis, bilateral[ICD10: H10.023] Diagnosis: Other allergic rhinitis[ICD10: J30.89] Shahida Goldman MD, [facility] CPT-4: 82350 10/08/2018 22058 EST. PATIENT, LEVEL III Diagnosis: Essential (primary) hypertension[ICD10: I10] Diagnosis: Generalized anxiety disorder[ICD10: F41.1] Isabelle Goldman MD, [facility] CPT-4: 87200 07/16/2018 ([id number]) 36445 EST. PATIENT, LEVEL III Diagnosis: Acute recurrent maxillary sinusitis[ICD10: J01.01] Diagnosis: Frequency of micturition[ICD10: R35.0] Diagnosis: Low back pain[ICD10: M54.5] Shahida Goldman MD, [facility] CPT-4: 29341 07/10/2018 ([id number]) 55372 EST. PATIENT, LEVEL III Diagnosis: Acute recurrent maxillary sinusitis[ICD10: J01.01] Shahida Goldman MD, [facility] CPT-4: 79727 05/28/2018 ([id number]) Miscellaneous no charge Diagnosis: Laceration without foreign body, left lower leg, subsequent encounter[ICD10: S81.812D] Diagnosis: Laceration without foreign body, right lower leg, subsequent encounter[ICD10: S81.811D] Isabelle Goldman MD, [facility] CPT-4: 70515 02/08/2018 54587 EST. PATIENT, LEVEL III Diagnosis: Cellulitis of left lower limb[ICD10: L03.116] Diagnosis: Cellulitis of right lower limb[ICD10: L03.115] Diagnosis: Laceration without foreign body, left lower leg, initial encounter[ICD10: S81.812A] Diagnosis: Laceration without foreign body, right lower leg, initial encounter[ICD10: S81.811A] Isabelle Goldman MD, [facility] CPT-4: 69293 02/07/2018 ([id number]) 09403 EST. PATIENT, LEVEL IV Diagnosis: Primary generalized (osteo)arthritis[ICD10: M15.0] Diagnosis: Acute recurrent maxillary sinusitis[ICD10: J01.01] Diagnosis: Low back pain[ICD10: M54.5] Diagnosis: Other allergic rhinitis[ICD10: J30.89] Diagnosis: Obstructive sleep apnea (adult) (pediatric)[ICD10: G47.33] Shahida Goldman MD, [facility] CPT-4: 28705 01/19/2018 67491 EST. PATIENT, LEVEL IV Diagnosis: Diarrhea, unspecified[ICD10: R19.7] Diagnosis: Generalized abdominal pain[ICD10: R10.84] Diagnosis: Other allergic rhinitis[ICD10: J30.89] Diagnosis: Other acute sinusitis[ICD10: J01.80] Isabelle Goldman MD, [facility] CPT- 4: 95108 09/12/2017 23477 EST. PATIENT, LEVEL III Diagnosis: Acute laryngopharyngitis[ICD10: J06.0] Diagnosis: Other allergic rhinitis[ICD10: J30.89] Diagnosis: Cough[ICD10: R05] Diagnosis: Wheezing[ICD10: R06.2] Isabelle Goldman MD, [facility] CPT-4: 78552 07/25/2017 ([id number]) 39419 EST. PATIENT, LEVEL IV Diagnosis: Acute recurrent maxillary sinusitis[ICD10: J01.01] Diagnosis: Cervicalgia[ICD10: M54.2] Diagnosis: Diarrhea, unspecified[ICD10: R19.7] Shahida Goldman MD, [facility] CPT-4: 46854 06/27/2017 ([id number]) 59255 EST. PATIENT, LEVEL III Diagnosis: Chronic maxillary sinusitis[ICD10: J32.0] Diagnosis: Gastro-esophageal reflux disease without esophagitis[ICD10: K21.9] Shahida Goldman MD, [facility] CPT-4: 78829 05/08/2017 ([id number]) 56386 EST. PATIENT, LEVEL III Diagnosis: Acute recurrent maxillary sinusitis[ICD10: J01.01] Shahida Goldman MD, [facility] CPT-4: 76887 03/14/2017 05266 EST. PATIENT, LEVEL IV Diagnosis: Epigastric pain[ICD10: R10.13] Diagnosis: Left upper quadrant pain[ICD10: R10.12] Diagnosis: Left lower quadrant pain[ICD10: R10.32] Isabelle Goldman MD, [facility] CPT-4: 74654 02/20/2017 ([id number]) 84551 EST. PATIENT, LEVEL IV Diagnosis: Generalized anxiety disorder[ICD10: F41.1] Diagnosis: Major depressive disorder, recurrent, moderate[ICD10: F33.1] Diagnosis: Left upper quadrant pain[ICD10: R10.12] Diagnosis: Epigastric pain[ICD10: R10.13] Diagnosis: Actinic keratosis[ICD10: L57.0] Melba Goldman MD, [facility] CPT-4: 77295 02/06/2017 ([id number]) 64239 EST. PATIENT, LEVEL III Diagnosis: Actinic keratosis[ICD10: L57.0] Diagnosis: Major depressive disorder, recurrent, moderate[ICD10: F33.1] Melba Goldman MD, [facility] CPT-4: 61501 12/05/2016 ([id number]) 09020 EST. PATIENT, LEVEL III Diagnosis: Acute recurrent maxillary sinusitis[ICD10: J01.01] Diagnosis: Dysuria[ICD10: R30.0] Shahida Goldman MD, [facility] CPT-4: 17534 11/28/2016 21310 EST. PATIENT, LEVEL IV Diagnosis: Other acute sinusitis[ICD10: J01.80] Diagnosis: Acute laryngopharyngitis[ICD10: J06.0] Diagnosis: Other allergic rhinitis[ICD10: J30.89] Isabelle Goldman MD, [facility] CPT- 4: 69519 08/15/2016 ([id number]) 23401 EST. PATIENT, LEVEL III Diagnosis: Acute recurrent maxillary sinusitis[ICD10: J01.01] Diagnosis: Low back pain[ICD10: M54.5] Shahida Goldman MD, [facility] CPT-4: 35545 06/07/2016 ([id number]) Miscellaneous no charge Diagnosis: Essential (primary) hypertension[ICD10: I10] Shahida Goldman MD, [facility] CPT-4: 73958 03/15/2016 62086 EST. PATIENT, LEVEL IV Diagnosis: Essential (primary) hypertension[ICD10: I10] Diagnosis: Headache[ICD10: R51] Diagnosis: Generalized anxiety disorder[ICD10: F41.1] Shahida Goldman MD, [facility] CPT-4: 31674 03/14/2016 18894 EST. PATIENT, LEVEL III Diagnosis: Laceration without foreign body, left lower leg, initial encounter[ICD10: S81.812A] Isabelle Goldman MD, [facility] CPT-4: 95905 02/22/2016 ([id number]) 56778 EST. PATIENT, LEVEL III Diagnosis: Acute recurrent maxillary sinusitis[ICD10: J01.01] Diagnosis: Cough[ICD10: R05] Diagnosis: Allergic rhinitis due to pollen[ICD10: J30.1] Shahida Goldman MD, [facility] CPT-4: 92698 12/07/2015 ([id number]) 70584 EST. PATIENT, LEVEL IV Diagnosis: Essential (primary) hypertension[ICD10: I10] Diagnosis: Acute recurrent maxillary sinusitis[ICD10: J01.01] Diagnosis: Generalized anxiety disorder[ICD10: F41.1] Diagnosis: Cervicalgia[ICD10: M54.2] Diagnosis: Generalized intra-abdominal and pelvic swelling, mass and lump[ICD10: R19.07] Melba Goldman MD, [facility] CPT-4: 98559 11/24/2015 04052 EST. PATIENT, LEVEL III Diagnosis: Other migraine, intractable, without status migrainosus[ICD10: G43.819] Isabelle Goldman MD, [facility] CPT-4: 80747 08/27/2015 32744 EST. PATIENT, LEVEL III Diagnosis: Acute recurrent maxillary sinusitis[ICD10: J01.01] Diagnosis: Candidal stomatitis[ICD10: B37.0] Diagnosis: Acute laryngopharyngitis[ICD10: J06.0] Isabelle Goldman MD, [facility] CPT- 4: 73721 08/10/2015 13780 EST. PATIENT, LEVEL III Diagnosis: Superficial foreign body of left hand, initial encounter[ICD10: S60.552A] Melba Goldman MD, [facility] CPT-4: 21372 07/28/2015 ([id number]) 60675 EST. PATIENT, LEVEL III Diagnosis: Essential (primary) hypertension[ICD10: I10] Diagnosis: Tinea cruris[ICD10: B35.6] Diagnosis: Abnormal levels of other serum enzymes[ICD10: R74.8] Shahida Goldman MD, [facility] CPT-4: 80426 06/11/2015 ([id number]) 54316 EST. PATIENT, LEVEL IV Diagnosis: ESSENTIAL HYPERTENSION[ICD9: 401.9] Diagnosis: Hypothyroid[ICD9: 244.9] Diagnosis: ALLERGIC RHINITIS[ICD9: 477.9] Diagnosis: Anxiety[ICD9: 300.00] Diagnosis: Sleep apnea[ICD9: 780.57] Shahida Goldman MD, [facility] CPT-4: 74976 03/19/2015 ([id number]) 19222 EST. PATIENT, LEVEL III Diagnosis: ACUTE SINUSITIS[ICD9: 461.9] Celi Goldman MD, [facility] CPT-4: 32553 01/07/2015 ([id number]) 83496 EST. PATIENT, LEVEL III Diagnosis: Conjunctivitis[ICD9: 372.30] Shahida Goldman MD, [facility] CPT-4: 23920 09/23/2014 17843 EST. PATIENT, LEVEL II Diagnosis: Noninfected skin tear of leg[ICD9: 891.0] Shahida Goldman MD, [facility] CPT-4: 12020 08/05/2014 ([id number]) 62160 EST. PATIENT, LEVEL III Diagnosis: Chronic maxillary sinusitis[ICD9: 473.0] Shahida Goldman MD, [facility] CPT-4: 60667 06/23/2014 39079 EST. PATIENT, LEVEL II Diagnosis: Headache[ICD9: 784.0] Shahida Goldman MD, [facility] CPT-4: 96817 06/05/2014 ([id number]) 08071 EST. PATIENT, LEVEL III Diagnosis: Abrasion of right leg[ICD9: 916.0] Diagnosis: Headache[ICD9: 784.0] Diagnosis: ALLERGIC RHINITIS[ICD9: 477.9] Shahida Goldman MD, [facility] CPT-4: 74699 04/03/2014 71905 EST. PATIENT, LEVEL II Diagnosis: Tinea corporis[ICD9: 110.5] Diagnosis: Exposure to scabies[ICD9: V01.89] Shahida Goldman MD, [facility] CPT- 4: 62701 03/07/2014 ([id number]) 46578 EST. PATIENT, LEVEL III Diagnosis: ESSENTIAL HYPERTENSION[SNOMED: 20705881] Diagnosis: OSTEOARTH NOS-UNSPEC[ICD9: 715.90] Diagnosis: Lumbago[ICD9: 724.2] Diagnosis: Cervicalgia[ICD9: 723.1] Shahida Goldman MD, [facility] CPT-4: 95385 11/21/2013 ([id number]) 59283 EST. PATIENT, LEVEL III Diagnosis: DEPRESSIVE DISORDER NEC[ICD9: 311] Diagnosis: Paronychia[ICD9: 681.9] Melba Goldman MD, [facility] CPT-4: 33602 09/24/2013 ([id number]) 43537 EST. PATIENT, LEVEL III Diagnosis: Paronychia[ICD9: 681.9] Diagnosis: Cellulitis[ICD9: 682.9] Melba Goldman MD, [facility] CPT-4: 23827 09/19/2013 ([id number]) 75748 EST. PATIENT, LEVEL III Diagnosis: Conjunctivitis[ICD9: 372.30] Diagnosis: Thrush[ICD9: 112.0] Shahida Goldman MD, [facility] CPT-4: 31490 08/05/2013 ([id number]) 02452 EST. PATIENT, LEVEL III Diagnosis: ACUTE MAXILLARY SINUSITIS[ICD9: 461.0] Diagnosis: COUGH[ICD9: 786.2] Diagnosis: Insomnia[ICD9: 780.52] Diagnosis: ESOPHAGEAL REFLUX[ICD9: 530.81] Melba Goldman MD, [facility] CPT-4: 75656 07/10/2013 ([id number]) Miscellaneous no charge Diagnosis: ESSENTIAL HYPERTENSION[SNOMED: 80145010] Melba Goldman MD, [facility] CPT-4: 96683 05/13/2013 ([id number]) 66278 EST. PATIENT, LEVEL IV Diagnosis: ESSENTIAL HYPERTENSION[SNOMED: 77655373] Diagnosis: HYPOTHYROIDISM[ICD9: 244.9] Diagnosis: OSTEOARTH NOS-UNSPEC[ICD9: 715.90] Melba Goldman MD, [facility] CPT- 4: 43897 05/07/2013 ([id number]) 80799 EST. PATIENT, LEVEL IV Diagnosis: Osteoarthritis[ICD9: 715.90] Diagnosis: Knee pain, bilateral[ICD9: 719.46] Diagnosis: Hip pain[ICD9: 719.45] Melba Goldman MD, [facility] CPT-4: 35906 12/03/2012 ([id number]) 68271 EST. PATIENT, LEVEL III Diagnosis: Thrush[ICD9: 112.0] Melba Goldman MD, [facility] CPT-4: 93909 09/24/2012 ([id number]) 41107 EST. PATIENT, LEVEL IV Diagnosis: ESSENTIAL HYPERTENSION[SNOMED: 01387869] Diagnosis: Thrush[ICD9: 112.0] Diagnosis: Sleep apnea[ICD9: 780.57] Melba Goldman MD, [facility] CPT-4: 15918 09/10/2012 ([id number]) 02309 EST. PATIENT, LEVEL IV Diagnosis: Esophageal reflux[ICD9: 530.81] Diagnosis: Hypothyroid[ICD9: 244.9] Diagnosis: JOINT PAIN-MULT JOINTS[ICD9: 719.49] Diagnosis: ALLERGIC RHINITIS[ICD9: 477.9] Melba Goldman MD, [facility] CPT-4: 32893 08/08/2012 ([id number]) 64110 EST. PATIENT, LEVEL IV Diagnosis: Urinary frequency[ICD9: 788.41] Diagnosis: EDEMA[ICD9: 782.3] Diagnosis: HYPOTHYROIDISM[ICD9: 244.9] Diagnosis: Fatigue[ICD9: 780.79] Melba Goldman MD, [facility] CPT-4: 08900 02/15/2012 ([id number]) 14167 EST. PATIENT, LEVEL IV Diagnosis: Abdominal pain[ICD9: 789.00] Diagnosis: Fatigue[ICD9: 780.79] Diagnosis: Nausea[ICD9: 787.02] Melba Goldman MD, [facility] CPT-4: 33515 11/10/2011 98940 EST. PATIENT, LEVEL IV Diagnosis: ESSENTIAL HYPERTENSION[SNOMED: 92618740] Diagnosis: DIARRHEA[ICD9: 787.91] Diagnosis: DEPRESSIVE DISORDER NEC[ICD9: 311] Diagnosis: Irritable bowel disease[ICD9: 564.1] Melba Goldman MD, [facility] CPT- 4: 87226 08/01/2011 92044 EST. PATIENT, LEVEL III Diagnosis: ACUTE SINUSITIS[ICD9: 461.9] Diagnosis: Cough[ICD9: 786.2] Shahida Goldman MD, [facility] CPT-4: 10648 07/14/2011 11083 EST. PATIENT, LEVEL IV Diagnosis: VACCIN FOR INFLUENZA[ICD9: V04.81] Diagnosis: ESSENTIAL HYPERTENSION[SNOMED: 81319450] Diagnosis: GENERALIZED ANXIETY DISEASE[ICD9: 300.02] Diagnosis: SLEEP DISTURBANCES[ICD9: 780.50] Shahida Goldman MD, [facility] CPT- 4: 88395 05/23/2011 18839 EST. PATIENT, LEVEL III Diagnosis: ACUTE SINUSITIS[ICD9: 461.9] Diagnosis: ALLERGIC RHINITIS[ICD9: 477.9] Diagnosis: Cough[ICD9: 786.2] Shahida Goldman MD, [facility] CPT-4: 74593 05/03/2011 06735 EST. PATIENT, LEVEL IV Diagnosis: ESSENTIAL HYPERTENSION[SNOMED: 65503987] Diagnosis: DEPRESSIVE DISORDER NEC[ICD9: 311] Diagnosis: Fatigue[ICD9: 780.79] Shahida Goldman MD, [facility] CPT-4: 52088 04/25/2011 Plan of Care Planned Activity Notes Codes Status Date Appointment: Nurse Visit 11/27/2018 Patient Education: Patient [...] acute concerns. 11/13/2018 Appointment: Shahida Manzo WPtel: [address] [place], [place] [phone] (15 min) Moderate 11/13/2018 Patient Education: Patient [...] call for acute concerns. Hyperlipidemia-check fasting labs Tjmvjeozigbdld-mydepab-mdelg labs 10/30/2018 Visit Plan: Hypertension - uncontrolled [...] call for acute concerns. Hyperlipidemia-check fasting labs Lifxymwlodlpga-udgylcz-zweek labs 10/30/2018 Appointment: Shahida Manzo WPtel: [facility]5 [phone] [place] [address] (30 min) Complex 10/30/2018 Patient Education: Patient Medication Summary Completed 10/30/2018 Visit Plan: Conjunctivitis - rx for eye drops/lube sent electronically to the patient's pharmacy. The patient has been instructed to cleanse affected eye with warm washcloth, then place medication into affected eye four times daily. 10/08/2018 Appointment: Shahida Manzo WPtel: [address] [place], [place] [phone] [place] [address] (30 min) Complex 10/08/2018 Patient Education: Patient Medication Summary Completed 10/08/2018 Appointment: Isabelle Orozco WPtel: [facility]5 [phone] (15 min) Moderate 07/30/2018 Visit Plan: Anxiety [...] acute concerns. 07/16/2018 Appointment: Isabelle Orozco WPtel: [phone] [phone] (15 min) Moderate 07/16/2018 Patient Education: Patient [...] over-medication. 07/10/2018 Appointment: Shahida Manzo WPtel: [phone] [phone] (15 min) Moderate 07/10/2018 Patient Education: Patient Medication Summary Completed 07/10/2018 Patient Education: Back Pain Completed 07/10/2018 Visit Plan: Sinusitis - Pt has acute infection - pain in face, maxillary region, Pt informed to use decongestant, RX given to patient, sinus rinses also recommended. Call if symptoms do not show improvement. 05/28/2018 Appointment: Shahida Manzo WPtel: [phone] [phone] (30 min) Complex 05/28/2018 Patient Education: Patient [...] concerns. 02/07/2018 Appointment: Isabelle Orozco WPtel: [facility]5 [facility] (15 min) Moderate 02/07/2018 Patient Education: Patient [...] fatigue 01/19/2018 Appointment: Shahida Manzo WPtel: [phone] [phone] (15 min) Moderate 01/19/2018 Patient Education: Patient [...] care surrogate. 11/23/2017 Appointment: Isabelle Orozco WPtel: [phone] [phone] [facility] - Annual Wellness Visit 11/23/2017 Patient [...] improvement. 09/12/2017 Appointment: Isabelle Orozco WPtel: [phone] [facility] (15 min) Moderate 09/12/2017 Patient Education: Patient [...] spray. 07/25/2017 Appointment: Isabelle Orozco WPtel: [phone] [phone] (30 min) Complex 07/25/2017 Patient Education: Patient [...] are available 06/27/2017 Appointment: Shahida Manzo WPtel: [facility]6 [phone] (15 min) Moderate 06/27/2017 Patient Education: Patient [...] not improving. 05/08/2017 Appointment: Shahida Manzo WPtel: [address] [place], [place] [phone] (15 min) Moderate 05/08/2017 Patient Education: Patient [...] show improvement. 03/14/2017 Appointment: Shahida Manzo WPtel: [facility]1 [phone] [place] (15 min) Moderate 03/14/2017 Patient Education: Patient Medication Summary Completed 03/14/2017 Appointment: Shahida Manzo WPtel: [facility]2 [phone] (15 min) Moderate 02/21/2017 Visit Plan: Abdominal [...] not improving. 02/20/2017 Appointment: Isabelle Orozco WPtel: [phone] [phone] (30 min) Complex 02/20/2017 Patient Education: Patient [...] use 02/06/2017 Appointment: Melba Goldman WPtel: [phone] [facility] (15 min) Moderate 02/06/2017 Patient Education: Patient [...] this patient. 12/05/2016 Appointment: Melba Goldman WPtel: [facility]5 [facility] Surgical Procedure 12/05/2016 Patient Education: Patient Medication Summary Completed 12/05/2016 Visit Plan: Sinusitis - Pt has acute infection - pain in face, maxillary region, Pt informed to use decongestant, RX given to patient, sinus rinses also recommended. Call if symptoms do not show improvement. Dysuria- culture urine 11/28/2016 Appointment: Shahida Manzo WPtel: [facility]7 [phone] (15 min) Moderate 11/28/2016 Patient Education: Patient [...] of control. 11/07/2016 Appointment: [phone] [facility] - Annual Wellness Visit 11/07/2016 Patient [...] spray. 08/15/2016 Appointment: Isabel[facility]co [facility]Ptel[phone] (15 min) Moderate 08/15/2016 Patient Education: Patient [...] use. 06/07/2016 Appointment: Shahida Manzo WPtel: [facility]5 [phone] (10 min) Simple 06/07/2016 Patient Education: Patient [...] today 03/14/2016 Appointment: Shahida Manzo WPtel: [phone] (15 min) Moderate 03/14/2016 Patient Education: Patient Medication Summary Completed 03/14/2016 Care Plan: COMPLETE CBC AUTOMATED LOINC : 32936-3 Pending 03/14/2016 Visit Plan: Cellulitis - The patient was instructed in appropriate wound care. The patient was instructed to use the antibiotic ointment as per RX. The patient is to call for any change in symptoms, increase in size of the lesion, increase in pain. 02/22/2016 Appointment: Isabelle Orozco WPtel: [facility]5 [facility] (15 min) Moderate 02/22/2016 Patient Education: Patient [...] pt to follow up with specialist at [address] - she needs to pursue treatment. Anxietly - medications unchanged. colonoscopy with dr. dai 11/24/2015 Appointment: Melba Goldman WPtel: [address] [place], [place] [address] (30 min) [facility] 11/24/2015 Patient Education: Patient Medication Summary Completed 11/24/2015 Patient Education: Obesity Completed 11/24/2015 Patient Education: Hypertension Completed 11/24/2015 Patient Education: .Cervicalgia Neck Pain Completed 11/24/2015 Care Plan: Referral Order SNOMED-CT : [id number] Ordered 11/24/2015 Visit Plan: Acute Migraine - [...] to monitor 06/11/2015 Appointment: Shahida Manzo WPtel: [address] [place], [place] [phone] (15 min) Moderate 06/11/2015 Patient Education: Patient [...] OFFICE Sleep apnea-patient needs new CPAP-will contact [facility] Pt reports that she uses her [...] OFFICE Sleep apnea-patient needs new CPAP-will contact [facility] Pt reports that she uses [...] OFFICE Sleep apnea-patient needs new CPAP-will contact [facility] 03/19/2015 Appointment: (15 min) Moderate 03/19/2015 [...] Patient Medication Summary Completed 01/07/2015 Patient Education: [facility] - Saving AutoInj - 18+ - Dynamic [...] areas dry Exposure to scabies-RX sent to [facility] pharmacy. 03/07/2014 Appointment: Melba Goldman [facility]Ptel: [phone] [place] rash 03/07/2014 Patient Education: Patient Medication [...] change in blood pressure readings at home. Inayfua-lhjoxeqwved-vhkcjcdf duragesic patch-appt with Dr Ortiz for pain management 11/21/2013 Appointment: Shahida Manzo WPtel: [facility]5 [phone] Follow up 11/21/2013 Patient Education: Patient Medication Summary Completed 11/21/2013 Patient Education: Hypertension Completed 11/21/2013 Patient Education: .Cervicalgia Neck Pain Completed 11/21/2013 Appointment: Melba Goldman WPtel: [facility]5 [facility] Other 11/19/2013 Appointment: Melba Goldman WPtel: [address] [place], [place] [phone] Follow up 11/06/2013 Appointment: Melba Goldman WPtel: [address] [place], [place] [phone] Lab Draw 10/15/2013 Patient Education: Patient Medication [...] BEDTIME 09/24/2013 Appointment: Shahida Manzo WPtel: [facility]4 [phone] Other 09/24/2013 Patient Education: Patient Medication Summary Completed 09/24/2013 Visit Plan: Paronychia/Cellulitis - continue with oral antibiotics as previously directed, return to clinic as previously directed, call for acute change in symptoms, worsening redness, warmth, discharge. 09/19/2013 Appointment: Melba Goldman WPtel: [phone] [place] Other 09/19/2013 Patient Education: Patient Medication Summary Completed 09/19/2013 Visit Plan: Conjunctivitis - rx for eye drops/lube sent electronically to the patient's pharmacy. The patient has been instructed to cleanse affected eye with warm washcloth, then place medication into affected eye four times daily. Thrush-refill nystatin-call if symptoms do not resolve 08/05/2013 Appointment: Shahida Manzo WPtel: [phone] [place] Sick 08/05/2013 Patient Education: Patient Medication [...] improvement. 06/03/2013 Appointment: Melba Goldman WPtel: [phone] Follow up 06/03/2013 Patient Education: Patient Medication Summary Completed 06/03/2013 Patient Education: Hypertension Completed 06/03/2013 Appointment: Melba Goldman WPtel: [phone] Nurse Visit 05/13/2013 Patient Education: Patient Medication [...] control. 05/07/2013 Appointment: Melba Goldman [facility]Ptel: [phone] Follow up 05/07/2013 Patient Education: Patient Medication Summary Completed 05/07/2013 Patient Education: Hypertension Completed 05/07/2013 Patient Education: Patient Medication Summary Completed 04/30/2013 Patient Education: Hypertension Completed 04/30/2013 Visit Plan: Arthritis- occasionally uncontrolled symptoms- recommend pt to take antiinflammatory as directed for pain control. Use tylenol for break through pain symptoms. 12/03/2012 Appointment: Melba Goldman WPtel: [phone] Follow up 12/03/2012 Patient Education: Patient Medication [...] resolve 09/24/2012 Appointment: Shahida Manzo WPtel: [phone] [phone] Sick 09/24/2012 Patient Education: Patient Medication Summary [...] with diflucan 09/10/2012 Appointment: Melba Goldman WPtel: [phone] [facility] Follow up 09/10/2012 Patient Education: Patient Medication [...] pain symptoms. 08/08/2012 Appointment: Shahida Manzo WPtel: [address] [place], [place] [phone] [place] [address] Follow up 08/08/2012 Patient Education: Patient Medication Summary Completed 08/08/2012 Patient Education: Patient Medication Summary Completed 08/07/2012 Patient Education: Hypertension Completed 08/07/2012 Appointment: Melba Goldman WPtel: [address] [place] [address] Lab Draw 02/16/2012 Patient Education: Patient Medication [...] labs. 02/15/2012 Appointment: Melba Goldman WPtel: [facility]0 [place] [phone] Other 02/15/2012 Patient Education: Patient Medication Summary Completed 02/15/2012 Visit Plan: Abdominal pain - ultrasound tomorrow AM nothing to eat before the ultrasound from 11pm tonight bland diet. Nausea - worse with fatty foods, recommended low fat/bland diet, call if symptoms worsening. 11/10/2011 Appointment: Melba Goldman WPtel: [phone] [facility] Other 11/10/2011 Patient Education: Patient Medication Summary [...] the stools. 08/01/2011 Appointment: Melba Goldman WPtel: [facility]5 [facility] Other 08/01/2011 Patient Education: Patient Medication Summary Completed 08/01/2011 Patient Education: High Blood Pressure: Essential Hypertension Completed 08/01/2011 Visit Plan: Sinusitis - Pt has acute infection - pain in face, maxillary region, Pt informed to use decongestant, RX given to patient, sinus rinses also recommended. Call if symptoms do not show improvement. Cough- tesdavid zurita 07/14/2011 Appointment: Shahida Manzo WPtel: [facility]5 [phone] Other 07/14/2011 Patient Education: Patient Medication Summary Completed 07/14/2011 Visit Plan: Hypertension - continue with current medications, continue with no added salt diet. Pt has been encouraged to exercise daily. Refill bystolic-also sent rX. Will obtain renal artery ultrasound due to pat ient's resistent hypertension-she is currently on 3 medications [...] the office. 05/23/2011 Appointment: Shahida Manzo WPtel: [address] [place] [address] Other 05/23/2011 Patient Education: Patient Medication Summary [...] cough med 05/03/2011 Appointment: Shahida Manzo WPtel: [address] [place] [address] [place] Other 05/03/2011 Patient Education: Patient Medication [...] her symptoms. 04/25/2011 Appointment: Shahida Manzo WPtel: [address] [place], [place] [phone] Other 04/25/2011 Patient Education: Patient Medication Summary [...] OFFICE Sleep apnea-patient needs new CPAP-will contact [facility] Pt reports that she uses [...] OFFICE Sleep apnea-patient needs new CPAP-will contact [facility] Pt reports that she uses [...] OFFICE Sleep apnea-patient needs new CPAP-will contact [facility] LOSARTAN 50MG DAILY MONITOR BLOOD [...] call for acute concerns. Hyperlipidemia-check fasting labs Bjevnrrxstugdn-szbodgt-kjybu labs LOSARTAN 50MG DAILY MONITOR BLOOD PRESSURE [...] call for acute concerns. Hyperlipidemia-check fasting labs Vymdvzhklkbaxt-ahrwzpn-qrosw labs . Sinusitis - Pt has acute [...] not show improvement. Gentamicin nasal spray to [facility] Increase prilosec to twice daily [...] areas dry Exposure to scabies-RX sent to [facility] pharmacy. rocephin/kenalog . Sinusitis - [...] change in blood pressure readings at home. Tfqdokl-rplozrclwka-kprrghjm duragesic patch-appt with Dr Ortiz for pain [...]
--- OUTSIDE RECORDS SUMMARY | 2019-03-08 12:38 | XMS REPORT | CCD ---
Author Author [facility] Address [address] [place] [address] Phone Care Team Providers Care Director [employer] Name Role Phone PP Unavailable CCM Unavailable Summary Purpose Interface Exchange Insurance Providers Payer name Policy type / Coverage type Covered democrat ID Effective Begin Date Effective End Date [employer] Solutions Medicare Part B [id number] Unknown Family history Son Diagnosis Age At Onset Crohn's disease Unknown Brother Diagnosis Age At Onset Cardiovascular disease Unknown Mother Diagnosis Age At Onset Hypertension Unknown Father Diagnosis Age At Onset Cardiovascular disease Unknown Social History Social History Element Codes Description Effective Dates Marital status Unknown 04/22/2011 Number of children Unknown 3 1 son -Crohns 04/22/[address]: 013123169 Nonsmoker 04/22/2011 Allergies, Adverse Reactions, Alerts Substance [...] Start Date Stop Date Status Fill Instructions trazodone 50 mg tablet RxNorm: 673055 TAKE ONE AND ONE-HALF (1 1/2) TABLETS BY MOUTH AT BEDTIME. MAY INCREASE TO 2 TABLETS AT BEDTIME NEEDED 12/13/2018 04/01/2019 Active hydrocodone 10 mg-acetaminophen 325 mg tablet RxNorm: 140862 Tablet(s) PO TAKE ONE TO TWO TABLETS BY MOUTH EVERY 6 HOURS NEEDED FOR PAIN 11/13/2018 11/27/2018 Inactive losartan 100 mg tablet RxNorm: 265920 1 Tablet(s) PO daily 11/13/2018 05/11/2019 Active Synthroid 112 mcg tablet RxNorm: 592837 1 Tablet(s) PO daily 11/01/2018 04/29/2019 Active Brand name only! Dosage change! Synthroid 112 mcg tablet RxNorm: 190089 1 Tablet(s) PO daily 11/01/2018 10/31/2018 Inactive Brand name only! Dosage change! losartan 50 mg tablet RxNorm: 620305 1 Tablet(s) PO daily 10/30/2018 11/12/2018 Inactive Tamiflu 75 mg capsule RxNorm: 027995 1 Capsule(s) PO daily 10/30/2018 11/08/2018 Inactive Synthroid 100 mcg tablet RxNorm: 332230 1 Tablet(s) PO daily 10/30/2018 10/31/2018 Inactive Brand name only! Lexapro 20 mg tablet RxNorm: 151245 TAKE ONE AND ONE-HALF TABLET BY MOUTH DAILY 10/23/2018 10/17/2019 Active alprazolam 0.25 mg tablet RxNorm: 415450 1 Tablet(s) PO TID as needed 10/10/2018 01/07/2019 Active polymyxin B sulfate 10,000 unit-trimethoprim 1 mg/mL eye drops RxNorm: 569236 2 Drop(s) ophthalmic (eye) QID 10/08/2018 10/14/2018 Inactive hydrocodone 10 mg-acetaminophen 325 mg tablet RxNorm: 291846 Tablet(s) PO TAKE ONE TO TWO TABLETS BY MOUTH EVERY 6 HOURS NEEDED FOR PAIN 09/11/2018 09/25/2018 Inactive piroxicam 20 mg capsule RxNorm: 051316 TAKE ONE CAPSULE BY MOUTH DAILY 08/09/2018 01/05/2019 Active trazodone 50 mg tablet RxNorm: 500481 TAKE ONE AND ONE-HALF (1 1/2) TABLET BY MOUTH AT BEDTIME. MAY INCREASE TO 2 TABLETS AT BEDTIME NEEDED 08/02/2018 11/19/2018 Inactive Nexium 40 mg capsule,delayed release RxNorm: 720308 TAKE ONE CAPSULE BY MOUTH TWICE A DAY 07/23/2018 11/19/2018 Inactive Bystolic 5 mg tablet RxNorm: 061832 1 Tablet(s) PO daily to take with 10 mg daily to equal 15mg daily 07/17/2018 10/29/2018 Inactive alprazolam 0.25 mg tablet RxNorm: 523260 1 Tablet(s) PO TID as needed 07/16/2018 10/29/2018 Inactive hydrocodone 10 mg-acetaminophen 325 mg tablet RxNorm: 555228 Tablet(s) PO TAKE ONE TO TWO TABLETS BY MOUTH EVERY 6 HOURS NEEDED FOR PAIN 07/10/2018 07/24/2018 Inactive prednisone 20 mg tablet RxNorm: 606199 1 Tablet(s) PO BID 07/10/2018 07/14/2018 Inactive Phenergan with Codeine Syrup RxNorm: 5-10 Milliliter(s) PO Q6 PRN 06/28/2018 No Stop Date Active prednisone 20 mg tablet RxNorm: 969358 2 Tablet(s) PO daily 05/31/2018 06/04/2018 Inactive prednisone 20 mg tablet RxNorm: 761378 2 Tablet(s) PO daily 05/31/2018 05/30/2018 Inactive ceftriaxone 500 mg solution for injection RxNorm: 2164482 Inj 05/28/2018 05/28/2018 Inactive doxycycline hyclate 100 mg tablet RxNorm: 0295099 1 Tablet(s) PO BID 05/28/2018 06/06/2018 Inactive Kenalog 40 mg/mL suspension for injection RxNorm: 3367504 Milliliter(s) Inj 05/28/2018 05/28/2018 Inactive hydrocodone 10 mg-acetaminophen 325 mg tablet RxNorm: 309689 Tablet(s) PO TAKE ONE TO TWO TABLETS BY MOUTH EVERY 6 HOURS NEEDED FOR PAIN 05/09/2018 05/23/2018 Inactive alprazolam 0.25 mg tablet RxNorm: 295437 1 Tablet(s) PO daily as needed 04/25/2018 07/15/2018 Inactive Bystolic 10 mg tablet RxNorm: 872811 TAKE ONE TABLET BY MOUTH DAILY 04/16/2018 09/12/2018 Inactive hydrocodone 10 mg-acetaminophen 325 mg tablet RxNorm: 785584 Tablet(s) PO TAKE ONE TO TWO TABLETS BY MOUTH EVERY 6 HOURS NEEDED FOR PAIN 03/06/2018 03/20/2018 Inactive trazodone 50 mg tablet RxNorm: 040391 TAKE ONE AND ONE-HALF (1 1/2) TABLET BY MOUTH AT BEDTIME. MAY INCREASE TO 2 TABLETS AT BEDTIME NEEDED 02/23/2018 06/12/2018 Inactive mupirocin 2 % topical ointment RxNorm: 714082 1 TOP BID 02/09/2018 05/27/2018 Inactive Zofran 4 mg tablet RxNorm: 642842 1 Tablet(s) PO TID as needed 02/08/2018 No Stop Date Active Keflex 500 mg capsule RxNorm: 220591 1 Capsule(s) PO TID 02/07/2018 02/13/2018 Inactive alprazolam 0.25 mg tablet RxNorm: 516795 1 Tablet(s) PO daily as needed 01/24/2018 07/09/2018 Inactive hydrocodone 10 mg-acetaminophen 325 mg tablet RxNorm: 448943 Tablet(s) PO TAKE ONE TO TWO TABLETS BY MOUTH EVERY 6 HOURS NEEDED FOR PAIN 01/19/2018 02/02/2018 Inactive hydrochlorothiazide 25 mg tablet RxNorm: 552375 Tablet(s) TAKE ONE TABLET BY MOUTH DAILY 01/19/2018 01/19/2018 Inactive Kenalog 40 mg/mL suspension for injection RxNorm: 6577296 1 Milliliter(s) Inj 01/19/2018 01/19/2018 Inactive piroxicam 20 mg capsule RxNorm: 425951 1 Capsule(s) PO daily 01/19/2018 07/17/2018 Inactive D/C ORDER FOR HCTZ ceftriaxone 500 mg solution for injection RxNorm: 3157584 500 Milligram(s) Inj 01/19/2018 01/19/2018 Inactive Nexium 40 mg capsule,delayed release RxNorm: 946851 TAKE ONE CAPSULE BY MOUTH TWICE A DAY 01/18/2018 04/17/2018 Inactive Nexium 40 mg capsule,delayed release RxNorm: 198072 TAKE ONE CAPSULE BY MOUTH TWICE A DAY 01/15/2018 04/14/2018 Inactive ciprofloxacin 0.3 % eye drops RxNorm: 419909 2 Drop(s) ophthalmic (eye) Q2H while awake x 2 days, then Q4H x 5 days 11/23/2017 05/27/2018 Inactive Keflex 500 mg capsule RxNorm: 298694 1 Capsule(s) PO TID 11/23/2017 11/29/2017 Inactive hydrocodone 10 mg-acetaminophen 325 mg tablet RxNorm: 885451 Tablet(s) PO TAKE ONE TO TWO TABLETS BY MOUTH EVERY 6 HOURS NEEDED FOR PAIN 10/30/2017 11/13/2017 Inactive Augmentin 500 mg-125 mg tablet RxNorm: 027960 1 Tablet(s) PO TID 10/27/2017 11/05/2017 Inactive alprazolam 0.25 mg tablet RxNorm: 753091 1 Tablet(s) PO daily as needed 10/26/2017 04/24/2018 Inactive trazodone 50 mg tablet RxNorm: 049735 TAKE ONE AND ONE-HALF (1 1/2) TABLET BY MOUTH AT BEDTIME. MAY INCREASE TO 2 TABLETS AT BEDTIME NEEDED 09/25/2017 02/03/2018 Inactive Lexapro 20 mg tablet RxNorm: 943217 TAKE ONE AND ONE-HALF TABLET BY MOUTH DAILY 09/15/2017 09/09/2018 Inactive Flagyl 500 mg tablet RxNorm: 828606 1 Tablet(s) PO TID 09/12/2017 09/21/2017 Inactive promethazine 25 mg tablet RxNorm: 602052 1 Tablet(s) PO TID as needed nausea and vomitting THIS WILL MAKE YOU SLEEPY 09/12/2017 11/08/2017 Inactive Keflex 500 mg capsule RxNorm: 777730 1 Capsule(s) PO QID 08/25/2017 08/31/2017 Inactive [SAVINGS FOR UNINSURED PATIENTS -- [id number], PCN: [id number], Group: [id number], ID# [id number], Process claim through [employer], for questions: . THIS IS NOT INSURANCE.] alprazolam 0.25 mg tablet RxNorm: 834924 1 Tablet(s) PO daily as needed 07/31/2017 04/24/2018 Inactive prednisone 20 mg tablet RxNorm: 008913 2 Tablet(s) PO daily 07/25/2017 07/29/2017 Inactive Augmentin 500 mg-125 mg tablet RxNorm: 035372 1 Tablet(s) PO TID 07/25/2017 08/03/2017 Inactive trazodone 50 mg tablet RxNorm: 083553 TAKE ONE AND ONE-HALF (1 1/2) TABLET BY MOUTH AT BEDTIME. MAY INCREASE TO 2 TABLETS AT BEDTIME NEEDED 06/30/2017 09/03/2017 Inactive Bystolic 10 mg tablet RxNorm: 959055 TAKE ONE TABLET BY MOUTH DAILY 06/30/2017 2017 Inactive hydrochlorothiazide 25 mg tablet RxNorm: 594939 TAKE ONE TABLET BY MOUTH DAILY 06/30/2017 01/18/2018 Inactive Flagyl 500 mg tablet RxNorm: 878384 1 Tablet(s) PO TID 06/27/2017 07/03/2017 Inactive Phenergan with Codeine Syrup RxNorm: 5-10 Milliliter(s) PO Q6 PRN 06/27/2017 11/15/2017 Inactive Levaquin 500 mg tablet RxNorm: 721194 1 Tablet(s) PO daily 06/27/2017 07/03/2017 Inactive Kenalog 40 mg/mL suspension for injection RxNorm: 5224463 1 Milliliter(s) Inj 06/27/2017 06/27/2017 Inactive Nexium 40 mg capsule,delayed release RxNorm: 428586 1 Capsule(s) PO BID TAKE ONE CAPSULE BY MOUTH BID 05/22/2017 09/18/2017 Inactive Nexium 40 mg capsule,delayed release RxNorm: 374132 1 Capsule(s) PO BID TAKE ONE CAPSULE BY MOUTH BID 05/22/2017 05/21/2017 Inactive hydrocodone 10 mg-acetaminophen 325 mg tablet RxNorm: 817108 Tablet(s) PO TAKE ONE TO TWO TABLETS BY MOUTH EVERY 6 HOURS NEEDED FOR PAIN 05/17/2017 06/15/2017 Inactive Nexium 40 mg capsule,delayed release RxNorm: 609456 Capsule(s) TAKE ONE CAPSULE BY MOUTH BID 05/17/2017 05/21/2017 Inactive alprazolam 0.25 mg tablet RxNorm: 682912 1 Tablet(s) PO daily as needed 05/03/2017 07/01/2017 Inactive Levaquin 500 mg tablet RxNorm: 497915 1 Tablet(s) PO daily 04/20/2017 04/26/2017 Inactive clotrimazole 1 % topical cream RxNorm: 038465 1 Application TOP BID 04/20/2017 11/07/2017 Inactive Kenalog 40 mg/mL suspension for injection RxNorm: 7381740 Milliliter(s) Inj 04/20/2017 04/20/2017 Inactive nystatin 100,000 unit/gram topical powder RxNorm: 201581 1 Gram(s) APPLY TOPICALLY TWO TIMES A DAY 04/10/2017 07/08/2017 Inactive trazodone 50 mg tablet RxNorm: 495056 TAKE ONE AND ONE-HALF (1 1/2) TABLET BY MOUTH AT BEDTIME. MAY INCREASE TO 2 TABLETS AT BEDTIME NEEDED 03/28/2017 06/23/2017 Inactive Augmentin 875 mg-125 mg tablet RxNorm: 198433 1 Tablet(s) PO BID 03/14/2017 03/20/2017 Inactive Kenalog 40 mg/mL suspension for injection RxNorm: 2710504 1 Milliliter(s) Inj 03/14/2017 03/14/2017 Inactive Lexapro 20 mg tablet RxNorm: 944565 1.5 Tablet(s) PO daily 03/08/2017 03/07/2017 Inactive Lexapro 20 mg tablet RxNorm: 830132 1.5 Tablet(s) PO daily 03/08/2017 07/05/2017 Inactive alprazolam 0.25 mg tablet RxNorm: 418637 1 Tablet(s) PO daily as needed 02/23/2017 04/23/2017 Inactive (Response to an electronic controlled substance refill request - RxReferenceNumber: [id number]) Flagyl 500 mg tablet RxNorm: 186506 1 Tablet(s) PO TID 02/20/2017 03/01/2017 Inactive promethazine 25 mg tablet RxNorm: 536277 1 Tablet(s) PO TID as needed nausea 02/20/2017 03/01/2017 Inactive Cipro 500 mg tablet RxNorm: 163255 1 Tablet(s) PO BID 02/20/2017 03/01/2017 Inactive Flagyl 500 mg tablet RxNorm: 732438 1 Tablet(s) PO TID 02/09/2017 02/15/2017 Inactive Trintellix 10 mg tablet RxNorm: 2779950 1 Tablet(s) PO QAM 02/06/2017 03/07/2017 Inactive Efudex 5 % topical cream RxNorm: 105454 1 Application TOP BID use on skin spot on nose 02/06/2017 02/15/2017 Inactive Bystolic 10 mg tablet RxNorm: 677378 TAKE ONE TABLET BY MOUTH DAILY 02/03/2017 06/02/2017 Inactive Imitrex 50 mg tablet RxNorm: 757417 TAKE ONE TABLET BY MOUTH EVERY 8 HOURS NEEDED MAY REPEAT IN 1 HOUR OF INITIAL DOSE. DISCONTINUE FIORICET 12/22/2016 02/19/2017 Inactive Nexium 40 mg capsule,delayed release RxNorm: 991303 TAKE ONE CAPSULE BY MOUTH EVERY DAY 12/21/2016 05/16/2017 Inactive Lexapro 20 mg tablet RxNorm: 158402 Tablet(s) TAKE ONE TABLET BY MOUTH DAILY 12/05/2016 02/05/2017 Inactive Augmentin 875 mg-125 mg tablet RxNorm: 293267 1 Tablet(s) PO BID 11/28/2016 12/04/2016 Inactive ceftriaxone 500 mg solution for injection RxNorm: 4734959 1 Milliliter(s) Inj 11/28/2016 11/28/2016 Inactive hydrocodone 10 mg-acetaminophen 325 mg tablet RxNorm: 064761 Tablet(s) PO TAKE ONE TO TWO TABLETS BY MOUTH EVERY 6 HOURS NEEDED FOR PAIN 11/28/2016 05/16/2017 Inactive (Appended: Controlled substance eRx refill - RxReferenceNumber: [id number]) prednisone 20 mg tablet RxNorm: 715855 2 Tablet(s) PO daily 11/28/2016 12/02/2016 Inactive trazodone 50 mg tablet RxNorm: 052798 Tablet(s) TAKE 1 AND 1/2 TABLETS EVERY NIGHT AT BEDTIME , MAY INCREASE TO 2 TABLETS AT BEDTIME NEEDED 11/21/2016 11/20/2016 Inactive Synthroid 100 mcg tablet RxNorm: 227507 1 Tablet(s) PO daily 11/21/2016 05/19/2017 Inactive Brand name only! trazodone 50 mg tablet RxNorm: 030531 TAKE 1 AND 1/2 TABLETS EVERY NIGHT AT BEDTIME , MAY INCREASE TO 2 TABLETS AT BEDTIME NEEDED 11/21/2016 08/01/2018 Inactive Synthroid 100 mcg tablet RxNorm: 737402 1 Tablet(s) PO daily TAKE ONE TABLET BY MOUTH DAILY 11/08/2016 11/20/2016 Inactive ceftriaxone 500 mg solution for injection RxNorm: 1099129 Inj 11/07/2016 11/07/2016 Inactive Kenalog 40 mg/mL suspension for injection RxNorm: 8770357 Milliliter(s) Inj 11/07/2016 11/07/2016 Inactive Xanax 0.25 mg tablet RxNorm: 093033 1 Tablet(s) PO daily as needed 10/31/2016 05/02/2017 Inactive alprazolam 0.25 mg tablet RxNorm: 928538 1 Tablet(s) PO daily as needed 10/21/2016 12/18/2016 Inactive (Response to an electronic controlled substance refill request - RxReferenceNumber: [id number]) hydrochlorothiazide 25 mg tablet RxNorm: 934754 TAKE ONE TABLET BY MOUTH DAILY 10/11/2016 04/08/2017 Inactive Xanax 0.25 mg tablet RxNorm: 542005 1 Tablet(s) PO daily as needed 08/23/2016 10/19/2016 Inactive Flonase Allergy Relief 50 mcg/actuation nasal spray,suspension RxNorm: 5349642 1 [place] NASAL daily 08/15/2016 No Stop Date Active amoxicillin 500 mg capsule RxNorm: 996012 1 Capsule(s) PO TID 08/15/2016 08/24/2016 Inactive Bystolic 10 mg tablet RxNorm: 050707 TAKE ONE TABLET BY MOUTH DAILY 08/01/2016 12/28/2016 Inactive trazodone 50 mg tablet RxNorm: 208254 TAKE 1 AND 1/2 TABLETS EVERY NIGHT AT BEDTIME , MAY INCREASE TO 2 TABLETS AT BEDTIME NEEDED 07/25/2016 11/11/2016 Inactive alprazolam 0.25 mg tablet RxNorm: 709098 1 Tablet(s) PO daily as needed 07/25/2016 08/22/2016 Inactive (Response to an electronic controlled substance refill request - RxReferenceNumber: [id number]) Imitrex 50 mg tablet RxNorm: 053720 1 Tablet(s) PO Q8 as needed may repeat x1 dose in 1 hour of inital dose. 07/13/2016 No Stop Date Active Lexapro 20 mg tablet RxNorm: 898050 TAKE 1/2 TABLET BY MOUTH DAILY FOR 10 DAYS, THEN TAKE ONE TABLET BY MOUTH DAILY 06/27/2016 11/23/2016 Inactive Synthroid 100 mcg tablet RxNorm: 761364 TAKE ONE TABLET BY MOUTH DAILY 06/20/2016 11/07/2016 Inactive Augmentin 500 mg-125 mg tablet RxNorm: 280764 1 Tablet(s) PO TID 06/07/2016 06/13/2016 Inactive hydrocodone 10 mg-acetaminophen 325 mg tablet RxNorm: 528713 Tablet(s) PO TAKE ONE TO TWO TABLETS BY MOUTH EVERY 6 HOURS NEEDED FOR PAIN 06/07/2016 11/27/2016 Inactive (Appended: Controlled substance eRx refill - RxReferenceNumber: [id number]) hydrochlorothiazide 25 mg tablet RxNorm: 034855 TAKE ONE TABLET BY MOUTH DAILY 03/14/2016 09/09/2016 Inactive Edarbi 40 mg tablet RxNorm: 0711226 1 Tablet(s) PO daily 03/14/2016 06/06/2016 Inactive trazodone 50 mg tablet RxNorm: 499973 Tablet(s) TAKE 1 AND 1/2 TABLET AT BEDTIME. MAY INCREASE TO 2 TABLETS IF NECESSARY 02/25/2016 07/05/2016 Inactive Imitrex 50 mg tablet RxNorm: 662594 1 Tablet(s) PO Q8 as needed may repeat x1 dose in 1 hour of inital dose. 02/25/2016 07/12/2016 Inactive dc fioricet Xanax 0.25 mg tablet RxNorm: 667553 1 Tablet(s) PO daily as needed 02/24/2016 07/21/2016 Inactive mupirocin 2 % topical ointment RxNorm: 318164 1 TOP BID 02/22/2016 11/08/2017 Inactive Bactrim DS 800 mg-160 mg tablet RxNorm: 213219 1 Tablet(s) PO BID 02/22/2016 03/02/2016 Inactive Fioricet 50 mg-325 mg-40 mg tablet RxNorm: 873669 Tablet(s) TAKE ONE TABLET BY MOUTH EVERY 4 HOURS NEEDED FOR headache 02/12/2016 02/24/2016 Inactive (Response to an electronic controlled substance refill request - RxReferenceNumber: [id number]) Fioricet 50 mg-325 mg-40 mg tablet RxNorm: 189988 Tablet(s) TAKE ONE TABLET BY MOUTH EVERY 4 HOURS NEEDED FOR headache 02/12/2016 02/11/2016 Inactive (Response to an electronic controlled substance refill request - RxReferenceNumber: [id number]) Nexium 40 mg capsule,delayed release RxNorm: 606620 TAKE ONE CAPSULE BY MOUTH EVERY DAY 02/01/2016 10/27/2016 Inactive Bystolic 10 mg tablet RxNorm: 627546 Tablet(s) TAKE ONE TABLET BY MOUTH DAILY 01/06/2016 07/03/2016 Inactive Xanax 0.25 mg tablet RxNorm: 083586 1 Tablet(s) PO daily as needed 12/28/2015 02/23/2016 Inactive Levaquin 500 mg tablet RxNorm: 593855 1 Tablet(s) PO daily take a probiotic daily 12/14/2015 02/11/2016 Inactive Levaquin 500 mg tablet RxNorm: 478243 1 Tablet(s) PO daily take a probiotic daily 12/14/2015 12/13/2015 Inactive prednisone 20 mg tablet RxNorm: 376112 1 Tablet(s) PO BID 12/07/2015 12/13/2015 Inactive Augmentin 875 mg-125 mg tablet RxNorm: 019051 1 Tablet(s) PO BID 12/07/2015 12/13/2015 Inactive ceftriaxone 500 mg solution for injection RxNorm: 2826294 Inj 12/07/2015 12/07/2015 Inactive Phenergan with Codeine Syrup RxNorm: 5-10 Milliliter(s) PO Q6 PRN 12/07/2015 06/26/2017 Inactive alprazolam 0.25 mg tablet RxNorm: 419353 1 Tablet(s) PO daily as needed 11/27/2015 12/25/2015 Inactive (Response to an electronic controlled substance refill request - RxReferenceNumber: [id number]) trazodone 50 mg tablet RxNorm: 208748 TAKE 1 AND 1/2 TABLET AT BEDTIME FOR 2 WEEKS, MAY INCREASE TO 2 TABLETS IF NECESSARY AFTER THAT 11/26/2015 02/24/2016 Inactive ceftriaxone 500 mg solution for injection RxNorm: 2215941 Milliliter(s) Inj 11/24/2015 11/24/2015 Inactive prednisone 10 mg tablet RxNorm: 210402 3 Tablet(s) PO daily 11/24/2015 11/28/2015 Inactive cefdinir 300 mg capsule RxNorm: 783695 1 Capsule(s) PO BID 11/24/2015 11/30/2015 Inactive Kenalog 40 mg/mL suspension for injection RxNorm: 2726182 1 Milliliter(s) Inj 11/24/2015 11/24/2015 Inactive Lexapro 20 mg tablet RxNorm: 706153 TAKE 1/2 TABLET BY MOUTH DAILY FOR 10 DAYS, THEN TAKE ONE TABLET BY MOUTH DAILY 11/23/2015 05/20/2016 Inactive Lipitor 10 mg tablet RxNorm: 390601 Tablet(s) TAKE ONE TABLET BY MOUTH EVERY DAY 10/26/2015 11/06/2016 Inactive Norvasc 10 mg tablet RxNorm: 810296 Tablet(s) PO TAKE ONE TABLET BY MOUTH EVERY DAY 10/26/2015 01/18/2018 Inactive hydrochlorothiazide 25 mg tablet RxNorm: 412968 TAKE ONE TABLET BY MOUTH DAILY 10/20/2015 01/17/2016 Inactive promethazine 25 mg/mL injection solution RxNorm: 502769 Milliliter(s) Inj 08/27/2015 08/27/2015 Inactive ketorolac 60 mg/2 mL intramuscular solution RxNorm: 962603 Milliliter(s) IM 08/27/2015 08/27/2015 Inactive alprazolam 0.25 mg tablet RxNorm: 272958 1 Tablet(s) PO daily as needed 08/27/2015 10/25/2017 Inactive (Response to an electronic controlled substance refill request - RxReferenceNumber: [id number]) Lexapro 20 mg tablet RxNorm: 241626 TAKE 1/2 TABLET BY MOUTH DAILY FOR 10 DAYS, THEN TAKE ONE TABLET BY MOUTH DAILY 08/13/2015 11/10/2015 Inactive Flonase 50 mcg/actuation nasal spray,suspension RxNorm: 922750 PLACE 1 SPRAY IN EACH NOSTRIL DAILY 08/13/2015 02/08/2016 Inactive Augmentin 500 mg-125 mg tablet RxNorm: 753359 1 Tablet(s) PO TID 08/10/2015 08/16/2015 Inactive Kenalog 40 mg/mL suspension for injection RxNorm: 2662822 Milliliter(s) Inj 08/10/2015 08/10/2015 Inactive ceftriaxone 500 mg solution for injection RxNorm: 5121656 Inj 08/10/2015 08/10/2015 Inactive nystatin 100,000 unit/mL oral suspension RxNorm: 318707 4 Milliliter(s) PO QID 08/10/2015 08/16/2015 Inactive trazodone 50 mg tablet RxNorm: 850431 TAKE 1 AND 1/2 TABLET AT BEDTIME FOR 2 WEEKS, MAY INCREASE TO 2 TABLETS IF NECESSARY AFTER THAT 07/31/2015 11/25/2015 Inactive ceftriaxone 500 mg solution for injection RxNorm: 7825097 1 Milliliter(s) Inj 07/28/2015 07/28/2015 Inactive Bactrim DS 800 mg-160 mg tablet RxNorm: 827068 1 Tablet(s) PO BID 07/28/2015 08/06/2015 Inactive Bactroban 2 % topical ointment RxNorm: 183635 1 Application TOP BID 07/28/2015 08/06/2015 Inactive Diflucan 150 mg tablet RxNorm: 658871 1 Tablet(s) PO daily 06/11/2015 06/17/2015 Inactive clotrimazole 1 % topical cream RxNorm: 499249 1 Application TOP BID 06/11/2015 07/10/2015 Inactive Bystolic 10 mg tablet RxNorm: 712521 TAKE ONE TABLET BY MOUTH DAILY 06/08/2015 12/04/2015 Inactive alprazolam 0.25 mg tablet RxNorm: 064750 1 Tablet(s) PO daily as needed 06/01/2015 08/25/2015 Inactive (Response to an electronic controlled substance refill request - RxReferenceNumber: [id number]) Fioricet 50 mg-325 mg-40 mg tablet RxNorm: 968719 Tablet(s) TAKE ONE TABLET BY MOUTH EVERY 4 HOURS NEEDED FOR headache 05/28/2015 06/08/2015 Inactive (Response to an electronic controlled substance refill request - RxReferenceNumber: [id number]) trazodone 50 mg tablet RxNorm: 275335 TAKE 1 AND 1/2 TABLET AT BEDTIME FOR 2 WEEKS, MAY INCREASE TO 2 TABLETS IF NECESSARY AFTER THAT 05/25/2015 08/22/2015 Inactive trazodone 50 mg tablet RxNorm: 904451 TAKE 1 AND 1/2 TABLET AT BEDTIME FOR 2 WEEKS, MAY INCREASE TO 2 TABLETS IF NECESSARY AFTER THAT 05/25/2015 05/24/2015 Inactive Synthroid 100 mcg tablet RxNorm: 069936 TAKE ONE TABLET BY MOUTH DAILY 04/23/2015 01/17/2016 Inactive Lipitor 10 mg tablet RxNorm: 760710 TAKE ONE TABLET BY MOUTH EVERY DAY 04/23/2015 10/25/2015 Inactive Kenalog 40 mg/mL suspension for injection RxNorm: 0655923 Milliliter(s) Inj 03/19/2015 03/19/2015 Inactive Lexapro 20 mg tablet RxNorm: 066374 1 Tablet(s) PO daily 03/19/2015 07/16/2015 Inactive 1/2 tab daily x 10 days then 1 tab daily hydrocodone 10 mg-acetaminophen 325 mg tablet RxNorm: 115273 Tablet(s) PO TAKE ONE TO TWO TABLETS BY MOUTH EVERY 6 HOURS NEEDED FOR PAIN 03/19/2015 06/06/2016 Inactive (Appended: Controlled substance eRx refill - RxReferenceNumber: [id number]) Carafate 1 gram tablet RxNorm: 721003 1 Tablet(s) PO AC & HS 03/19/2015 06/16/2015 Inactive dissolve in water and take as a slurry hydrochlorothiazide 25 mg tablet RxNorm: 315804 1 Tablet(s) PO daily 03/12/2015 09/07/2015 Inactive Nexium 40 mg capsule,delayed release RxNorm: 577234 TAKE ONE CAPSULE BY MOUTH EVERY DAY 02/26/2015 12/22/2015 Inactive Cymbalta 60 mg capsule,delayed release RxNorm: 290949 TAKE ONE CAPSULE BY MOUTH TWICE A DAY 02/23/2015 03/18/2015 Inactive alprazolam 0.25 mg tablet RxNorm: 824702 1 Tablet(s) PO daily as needed 02/11/2015 05/10/2015 Inactive (Response to an electronic controlled substance refill request - RxReferenceNumber: [id number]) trazodone 50 mg tablet RxNorm: 153581 TAKE 1 AND 1/2 TABLET AT BEDTIME FOR 2 WEEKS, MAY INCREASE TO 2 TABLETS IF NECESSARY AFTER THAT 01/27/2015 05/24/2015 Inactive Augmentin 500 mg-125 mg tablet RxNorm: 437888 1 Tablet(s) PO TID 01/07/2015 01/13/2015 Inactive gentamicin 0.3 % eye drops RxNorm: 190440 3 Drop(s) OPH QID 01/07/2015 01/13/2015 Inactive [AttnRPh: Saving apply/adjudicate RxGRP:[id number] RxBIN:[id number] RxPCN: ID#:[id number]] scopolamine 1.5 mg transdermal 72 hour patch RxNorm: 329126 1 Patch TD q72 hours 01/07/2015 11/23/2015 Inactive Synthroid 100 mcg tablet RxNorm: 362123 TAKE ONE TABLET BY MOUTH ONCE A DAY 01/06/2015 04/22/2015 Inactive nystatin 100,000 unit/gram topical powder RxNorm: 629348 APPLY TOPICALLY TWO TIMES A DAY 12/18/2014 03/17/2015 Inactive alprazolam 0.25 mg tablet RxNorm: 255370 TAKE ONE TABLET BY MOUTH DAILY NEEDED 10/30/2014 11/28/2014 Inactive (Response to an electronic controlled substance refill request - RxReferenceNumber: [id number]) alprazolam 0.25 mg tablet RxNorm: 142755 Tablet(s) TAKE ONE TABLET BY MOUTH DAILY 10/30/2014 10/29/2014 Inactive (Response to an electronic controlled substance refill request - RxReferenceNumber: [id number]) Lipitor 10 mg tablet RxNorm: 304139 TAKE ONE TABLET BY MOUTH EVERY DAY 10/30/2014 02/26/2015 Inactive alprazolam 0.25 mg tablet RxNorm: 960549 TAKE ONE TABLET BY MOUTH DAILY 10/07/2014 10/29/2014 Inactive (Response to an electronic controlled substance refill request - RxReferenceNumber: [id number]) alprazolam 0.25 mg tablet RxNorm: 039242 TAKE ONE TABLET BY MOUTH DAILY 10/06/2014 10/07/2014 Inactive (Response to an electronic controlled substance refill request - RxReferenceNumber: [id number]) alprazolam 0.25 mg tablet RxNorm: 606833 Tablet(s) TAKE ONE TABLET BY MOUTH EVERY DAY NEEDED 09/30/2014 10/06/2014 Inactive (Response to an electronic controlled substance refill request - RxReferenceNumber: [id number]) Fioricet 50 mg-325 mg-40 mg tablet RxNorm: 049109 Tablet(s) TAKE ONE TABLET BY MOUTH EVERY 4 HOURS NEEDED FOR headache 09/29/2014 10/12/2014 Inactive (Response to an electronic controlled substance refill request - RxReferenceNumber: [id number]) Bystolic 10 mg tablet RxNorm: 414505 1 Tablet(s) PO daily TAKE ONE TABLET BY MOUTH EVERY DAY 09/29/2014 04/26/2015 Inactive Bystolic 5 mg tablet RxNorm: 924606 TAKE 1 AND 1/2 TABLETS ONCE DAILY 09/24/2014 09/23/2014 Inactive Bystolic 5 mg tablet RxNorm: 810866 Tablet(s) TAKE 1 AND 1/2 TABLETS ONCE DAILY 09/24/2014 09/18/2015 Inactive gentamicin 0.3 % eye drops RxNorm: 159017 3 Drop(s) OPH QID 09/23/2014 09/29/2014 Inactive trazodone 50 mg tablet RxNorm: 761997 TAKE 1 AND 1/2 TABLET AT BEDTIME FOR 2 WEEKS, MAY INCREASE TO 2 TABLETS IF NECESSARY AFTER THAT 09/22/2014 01/26/2015 Inactive Fioricet 50 mg-325 mg-40 mg tablet RxNorm: 290245 TAKE ONE TABLET BY MOUTH EVERY 4 HOURS NEEDED FOR PAIN 09/17/2014 09/28/2014 Inactive (Response to an electronic controlled substance refill request - RxReferenceNumber: [id number]) Duragesic 50 mcg/hr transdermal patch RxNorm: 317196 1 TD q72 hours 08/07/2014 01/06/2015 Inactive [SAVINGS FOR UNINSURED PATIENTS -- BIN:[id number], PCN: ASPROD1, Group: [id number], ID# [id number], Process claim through [employer], for questions: . THIS IS NOT INSURANCE.] alprazolam 0.25 mg tablet RxNorm: 437609 TAKE ONE TABLET BY MOUTH EVERY DAY NEEDED 07/31/2014 08/29/2014 Inactive (Response to an electronic controlled substance refill request - RxReferenceNumber: [id number]) alprazolam 0.25 mg tablet RxNorm: 714225 1 Tablet(s) PO daily as needed TAKE ONE TABLET BY MOUTH EVERY DAY NEEDED 07/30/2014 08/01/2014 Inactive (Response to an electronic controlled substance refill request - RxReferenceNumber: [id number]) Diflucan 150 mg tablet RxNorm: 953396 1 Tablet(s) PO daily 06/25/2014 07/01/2014 Inactive [SAVINGS FOR UNINSURED PATIENTS -- BIN:[id number], PCN: ASPROD1, Group: [id number], ID# [id number], Process claim through [employer], for questions: . THIS IS NOT INSURANCE.] Kenalog 40 mg/mL suspension for injection RxNorm: 7081284 Milliliter(s) Inj 06/23/2014 06/23/2014 Inactive [SAVINGS FOR UNINSURED PATIENTS -- BIN:461922, PCN: ASPROD1, Group: [id number], ID# [id number], Process claim through [employer], for questions: . THIS IS NOT INSURANCE.] ceftriaxone 500 mg solution for injection RxNorm: 639757 Inj 06/23/2014 06/23/2014 Inactive [SAVINGS FOR UNINSURED PATIENTS -- BIN:894447, PCN: ASPROD1, Group: [id number], ID# [id number], Process claim through [employer], for questions: . THIS IS NOT INSURANCE.] Levaquin 500 mg tablet RxNorm: 807791 1 Tablet(s) PO daily 06/23/2014 07/13/2014 Inactive [SAVINGS FOR UNINSURED PATIENTS -- BIN:967860, PCN: ASPROD1, Group: [id number], ID# [id number], Process claim through [employer], for questions: . THIS IS NOT INSURANCE.] Duragesic 50 mcg/hr transdermal patch RxNorm: 605108 1 TD q72 hours 06/05/2014 08/06/2014 Inactive [SAVINGS FOR UNINSURED PATIENTS -- BIN:289939, PCN: ASPROD1, Group: [id number], ID# [id number], Process claim through [employer], for questions: . THIS IS NOT INSURANCE.] alprazolam 0.25 mg tablet RxNorm: 052004 1 Tablet(s) PO daily as needed TAKE ONE TABLET BY MOUTH EVERY DAY NEEDED 06/02/2014 07/29/2014 Inactive (Response to an electronic controlled substance refill request - RxReferenceNumber: [id number]) nystatin 100,000 unit/gram topical powder RxNorm: 633608 APPLY TO AFFECTED AREA(S) TWO TIMES A DAY 05/01/2014 06/14/2014 Inactive hydrochlorothiazide 25 mg tablet RxNorm: 013638 TAKE ONE TABLET BY MOUTH EVERY DAY MUST CALL MD FOR APPOINTMENT 04/24/2014 10/20/2014 Inactive alprazolam 0.25 mg tablet RxNorm: 436638 Tablet(s) TAKE ONE TABLET BY MOUTH EVERY DAY NEEDED 04/16/2014 06/02/2014 Inactive (Response to an electronic controlled substance refill request - RxReferenceNumber: [id number]) alprazolam 0.25 mg tablet RxNorm: 565795 TAKE ONE TABLET BY MOUTH EVERY DAY NEEDED 04/16/2014 05/15/2014 Inactive (Response to an electronic controlled substance refill request - RxReferenceNumber: [id number]) alprazolam 0.25 mg tablet RxNorm: 855938 TAKE ONE TABLET BY MOUTH EVERY DAY NEEDED 04/16/2014 05/15/2014 Inactive (Response to an electronic controlled substance refill request - RxReferenceNumber: [id number]) alprazolam 0.25 mg tablet RxNorm: 189167 TAKE ONE TABLET BY MOUTH EVERY DAY NEEDED 04/14/2014 04/16/2014 Inactive (Response to an electronic controlled substance refill request - RxReferenceNumber: [id number]) Lipitor 10 mg tablet RxNorm: 460444 TAKE ONE TABLET BY MOUTH EVERY DAY 04/14/2014 09/10/2014 Inactive alprazolam 0.25 mg tablet RxNorm: 828154 TAKE ONE TABLET BY MOUTH EVERY DAY NEEDED 04/14/2014 04/14/2014 Inactive (Response to an electronic controlled substance refill request - RxReferenceNumber: [id number]) alprazolam 0.25 mg tablet RxNorm: 610017 TAKE ONE TABLET BY MOUTH EVERY DAY NEEDED 04/14/2014 04/15/2014 Inactive (Response to an electronic controlled substance refill request - RxReferenceNumber: [id number]) alprazolam 0.25 mg tablet RxNorm: 394064 TAKE ONE TABLET BY MOUTH EVERY DAY NEEDED 04/14/2014 04/14/2014 Inactive (Response to an electronic controlled substance refill request - RxReferenceNumber: [id number]) nystatin 100,000 unit/gram topical powder RxNorm: 263405 1 Application TOP BID 04/03/2014 07/01/2014 Inactive [SAVINGS FOR UNINSURED PATIENTS -- BIN:422125, PCN: ASPROD1, Group: [id number], ID# [id number], Process claim through [employer], for questions: . THIS IS NOT INSURANCE.] Keflex 500 mg capsule RxNorm: 413387 1 Capsule(s) PO QID 04/03/2014 04/09/2014 Inactive [SAVINGS FOR UNINSURED PATIENTS -- BIN:541140, PCN: ASPROD1, Group: [id number], ID# [id number], Process claim through [employer], for questions: . THIS IS NOT INSURANCE.] Synthroid 100 mcg tablet RxNorm: 600660 1 Tablet(s) PO daily TAKE ONE TABLET BY MOUTH EVERY DAY 04/01/2014 01/05/2015 Inactive [SAVINGS FOR UNINSURED PATIENTS -- BIN:154610, PCN: ASPROD1, Group: [id number], ID# [id number], Process claim through [employer], for questions: . THIS IS NOT INSURANCE.] Duragesic 50 mcg/hr transdermal patch RxNorm: 807946 1 TD q72 hours 03/24/2014 06/04/2014 Inactive [SAVINGS FOR UNINSURED PATIENTS -- BIN:921230, PCN: ASPROD1, Group: [id number], ID# [id number], Process claim through [employer], for questions: . THIS IS NOT INSURANCE.] trazodone 50 mg tablet RxNorm: 253990 TAKE 1 AND 1/2 TABLET AT BEDTIME FOR 2 WEEKS, MAY INCREASE TO 2 TABLETS IF NECESSARY AFTER THAT 03/18/2014 09/13/2014 Inactive nystatin 100,000 unit/gram topical powder RxNorm: 374496 1 Application TOP BID 03/07/2014 03/16/2014 Inactive [SAVINGS FOR UNINSURED PATIENTS -- BIN:998325, PCN: ASPROD1, Group: [id number], ID# [id number], Process claim through [employer], for questions: . THIS IS NOT INSURANCE.] permethrin 5 % topical cream RxNorm: 774368 1 Application TOP daily 03/07/2014 11/23/2015 Inactive apply head to toe-leave on overnight and wash off in the a.m. May repeat x 1 if needed Diflucan 150 mg tablet RxNorm: 406803 1 Tablet(s) PO daily 03/07/2014 03/09/2014 Inactive [SAVINGS FOR UNINSURED PATIENTS -- BIN:119218, PCN: ASPROD1, Group: [id number], ID# [id number], Process claim through [employer], for questions: . THIS IS NOT INSURANCE.] hydrochlorothiazide 25 mg tablet RxNorm: 653508 TAKE ONE TABLET BY MOUTH EVERY DAY MUST CALL MD FOR APPOINTMENT 03/06/2014 04/23/2014 Inactive Zithromax Z-Sergio 250 mg tablet RxNorm: 275547 Tablet(s) PO as directed 03/04/2014 11/23/2015 Inactive [SAVINGS FOR UNINSURED PATIENTS -- BIN:743357, PCN: ASPROD1, Group: [id number], ID# [id number], Process claim through [employer], for questions: . THIS IS NOT INSURANCE.] Flonase 50 mcg/actuation nasal spray,suspension RxNorm: 211540 1 [place] NASAL daily 03/04/2014 07/01/2014 Inactive [SAVINGS FOR UNINSURED PATIENTS -- BIN:180925, PCN: ASPROD1, Group: [id number], ID# [id number], Process claim through [employer], for questions: . THIS IS NOT INSURANCE.] alprazolam 0.25 mg tablet RxNorm: 306923 1 Tablet(s) PO PRN TAKE ONE TABLET BY MOUTH EVERY DAY NEEDED 02/25/2014 04/14/2014 Inactive (Appended: Controlled substance eRx refill - RxReferenceNumber: [id number]) alprazolam 0.25 mg tablet RxNorm: 295721 TAKE ONE TABLET BY MOUTH EVERY DAY NEEDED 02/21/2014 03/22/2014 Inactive (Response to an electronic controlled substance refill request - RxReferenceNumber: [id number]) alprazolam 0.25 mg tablet RxNorm: 312949 TAKE ONE TABLET BY MOUTH EVERY DAY NEEDED 02/21/2014 03/22/2014 Inactive (Response to an electronic controlled substance refill request - RxReferenceNumber: [id number]) alprazolam 0.25 mg tablet RxNorm: 805813 TAKE ONE TABLET BY MOUTH EVERY DAY NEEDED 02/18/2014 03/19/2014 Inactive (Response to an electronic controlled substance refill request - RxReferenceNumber: [id number]) Cymbalta 60 mg capsule,delayed release RxNorm: 375006 TAKE ONE CAPSULE BY MOUTH TWICE A DAY 02/18/2014 01/13/2015 Inactive Nexium 40 mg capsule,delayed release RxNorm: 080658 TAKE ONE CAPSULE BY MOUTH EVERY DAY 02/18/2014 01/13/2015 Inactive Bactrim DS 800 mg-160 mg tablet RxNorm: 431620 1 Tablet(s) PO BID 02/13/2014 02/19/2014 Inactive probiotic while one antibiotic Bactrim DS 800 mg-160 mg tablet RxNorm: 450784 1 Tablet(s) PO BID 02/13/2014 02/12/2014 Inactive hydrocodone 10 mg-acetaminophen 325 mg tablet RxNorm: 219063 Tablet(s) PO TAKE ONE TO TWO TABLETS BY MOUTH EVERY 6 HOURS NEEDED FOR PAIN 02/06/2014 03/18/2015 Inactive (Appended: Controlled substance eRx refill - RxReferenceNumber: [id number]) Abilify 2 mg tablet RxNorm: 198500 Tablet(s) PO TAKE ONE TABLET BY MOUTH EVERY NIGHT AT BEDTIME 02/03/2014 03/19/2015 Inactive Duragesic 50 mcg/hr transdermal patch RxNorm: 722002 1 TD q72 hours 01/14/2014 03/23/2014 Inactive alprazolam 0.25 mg tablet RxNorm: 199523 1 Tablet(s) PO QDAY PRN 01/14/2014 02/12/2014 Inactive alprazolam 0.25 mg tablet RxNorm: 060865 Tablet(s) PO TAKE ONE TABLET BY MOUTH EVERY DAY NEEDED 01/14/2014 02/24/2014 Inactive (Appended: Controlled substance eRx refill - RxReferenceNumber: [id number]) Lipitor 10 mg tablet RxNorm: 327392 Tablet(s) PO TAKE ONE TABLET BY MOUTH EVERY DAY 01/14/2014 04/13/2014 Inactive Synthroid 100 mcg tablet RxNorm: 805137 Tablet(s) PO TAKE ONE TABLET BY MOUTH EVERY DAY 2013 03/31/2014 Inactive Fioricet 50 mg-325 mg-40 mg tablet RxNorm: 698187 Tablet(s) PO TAKE ONE TABLET BY MOUTH EVERY 4 HOURS NEEDED FOR PAIN 11/27/2013 09/17/2014 Inactive Fioricet 50 mg-325 mg-40 mg tablet RxNorm: 097617 Tablet(s) PO TAKE ONE TABLET BY MOUTH EVERY 4 HOURS NEEDED FOR PAIN 11/25/2013 11/26/2013 Inactive Zithromax Z-Sergio 250 mg tablet RxNorm: 490719 Tablet(s) PO as directed 11/11/2013 01/13/2014 Inactive Bystolic 10 mg tablet RxNorm: 785611 Tablet(s) PO TAKE ONE TABLET BY MOUTH EVERY DAY 10/21/2013 09/28/2014 Inactive Abilify 2 mg tablet RxNorm: 446756 1 Tablet(s) PO QHS 09/25/2013 01/22/2014 Inactive Synthroid 100 mcg tablet RxNorm: 835013 Tablet(s) PO TAKE ONE TABLET BY MOUTH EVERY DAY 09/24/2013 12/25/2013 Inactive Abilify 2 mg tablet RxNorm: 546012 1 Tablet(s) PO QHS 09/24/2013 09/24/2013 Inactive Rocephin 500 mg solution for injection RxNorm: 432954 1ml Milliliter(s) Inj 09/24/2013 09/24/2013 Inactive Rocephin 500 mg solution for injection RxNorm: 268929 1 Milliliter(s) Inj 09/19/2013 09/19/2013 Inactive Bystolic 5 mg tablet RxNorm: 292036 1 1/2 Tablet(s) PO daily 09/17/2013 03/15/2014 Inactive 1 1/2 daily may have 90 day if cheaper Bystolic 5 mg tablet RxNorm: 874211 1 1/2 Tablet(s) PO daily 09/17/2013 09/16/2013 Inactive 1 1/2 daily Lipitor 10 mg tablet RxNorm: 880179 Tablet(s) PO TAKE ONE TABLET BY MOUTH EVERY DAY 09/12/2013 01/13/2014 Inactive hydrocodone 10 mg-acetaminophen 325 mg tablet RxNorm: 518161 Tablet(s) PO TAKE ONE TO TWO TABLETS BY MOUTH EVERY 6 HOURS NEEDED FOR PAIN 09/09/2013 10/29/2017 Inactive (Appended: Controlled substance eRx refill - RxReferenceNumber: [id number]) hydrocodone 10 mg-acetaminophen 325 mg tablet RxNorm: 410575 1 Tablet(s) PO Q6 PRN 09/09/2013 02/06/2014 Inactive hydrocodone 10 mg-acetaminophen 325 mg tablet RxNorm: 876993 Tablet(s) PO TAKE ONE TO TWO TABLETS BY MOUTH EVERY 6 HOURS NEEDED FOR PAIN 09/06/2013 10/29/2017 Inactive (Appended: Controlled substance eRx refill - RxReferenceNumber: [id number]) Norvasc 10 mg tablet RxNorm: 718844 Tablet(s) PO TAKE ONE TABLET BY MOUTH EVERY DAY 09/05/2013 10/25/2015 Inactive trazodone 50 mg tablet RxNorm: 301649 1 1/2 Tablet(s) PO QHS 09/03/2013 03/17/2014 Inactive 75q hs x 2 week may increase to 100mg if nec after that nystatin 100,000 unit/mL oral suspension RxNorm: 013533 6 Milliliter(s) PO QID 08/06/2013 08/15/2013 Inactive Flonase 50 mcg/actuation nasal spray,suspension RxNorm: 735296 2 [place] NASAL daily 08/06/2013 03/03/2014 Inactive nystatin 100,000 unit/mL oral suspension RxNorm: 114365 6 Unit(s) PO QID 08/05/2013 08/05/2013 Inactive Phenergan with Codeine Syrup RxNorm: 5 Milliliter(s) PO Q4 PRN 08/05/2013 12/02/2013 Inactive 8 ounces alprazolam 0.25 mg tablet RxNorm: 234871 1 Tablet(s) PO QDAY PRN 07/29/2013 01/14/2014 Inactive Diflucan 150 mg tablet RxNorm: 233780 1 Tablet(s) PO daily 07/24/2013 07/26/2013 Inactive hydrochlorothiazide 25 mg tablet RxNorm: 362270 Tablet(s) PO TAKE ONE TABLET BY MOUTH EVERY DAY MUST CALL MD FOR APPOINTMENT 07/19/2013 03/05/2014 Inactive Phenergan with Codeine Syrup RxNorm: 10 Milliliter(s) PO Q4 PRN 07/10/2013 08/04/2013 Inactive 8 ounces Rocephin 500 mg solution for injection RxNorm: 7850877 1 Inj 07/10/2013 07/10/2013 Inactive cefdinir 300 mg capsule RxNorm: 751230 1 Capsule(s) PO BID 07/10/2013 07/16/2013 Inactive prednisone 10 mg tablet RxNorm: 001629 3 Tablet(s) PO daily 07/10/2013 07/14/2013 Inactive Carafate 100 mg/mL oral suspension RxNorm: 702192 10 Milliliter(s) PO Q6 PRN pt to take carafate 10mL every 6 hours as needed. 07/10/2013 08/05/2014 Inactive Kenalog 40 mg/mL suspension for injection RxNorm: 1236816 1 Milliliter(s) Inj 07/10/2013 07/10/2013 Inactive trazodone 50 mg tablet RxNorm: 846496 1 Tablet(s) PO QHS 07/10/2013 09/02/2013 Inactive sulfamethoxazole 800 mg-trimethoprim 160 mg tablet RxNorm: 404098 1 Tablet(s) PO BID 06/03/2013 06/12/2013 Inactive Synthroid 125 mcg tablet RxNorm: 798479 1 Tablet(s) PO daily 05/07/2013 09/23/2013 Inactive Bystolic 10 mg tablet RxNorm: 439186 1.5 Tablet(s) PO daily 05/07/2013 09/03/2013 Inactive Voltaren 1 % Topical Gel RxNorm: 344470 4 Gram(s) TOP QID apply 4 grams to knees, 2 grams to hands and ankles four times daily. 05/07/2013 09/03/2013 Inactive hydrocodone 10 mg-acetaminophen 325 mg tablet RxNorm: 917294 1 Tablet(s) PO Q6 PRN 04/23/2013 09/09/2013 Inactive Norvasc 10 mg tablet RxNorm: 219786 Tablet(s) PO TAKE ONE TABLET BY MOUTH EVERY DAY 04/23/2013 09/04/2013 Inactive alprazolam 0.25 mg tablet RxNorm: 860345 1 Tablet(s) PO QDAY PRN 03/25/2013 07/22/2013 Inactive Bystolic 10 mg tablet RxNorm: 553450 1 Tablet(s) PO daily TAKE ONE TABLET BY MOUTH EVERY DAY 03/25/2013 05/06/2013 Inactive zolpidem 10 mg tablet RxNorm: 634874 1 Tablet(s) PO HS PRN 03/25/2013 07/09/2013 Inactive gentamicin 0.3 % Eye Drops RxNorm: 396495 3 Drop(s) OPH QID three gtts to each eye QID x 7 days 03/11/2013 03/10/2013 Inactive gentamicin 0.3 % eye drops RxNorm: 896772 3 Drop(s) OPH QID three gtts to each eye QID x 7 days 03/11/2013 03/17/2013 Inactive Nexium 40 mg capsule,delayed release RxNorm: 824581 Capsule(s) PO TAKE ONE CAPSULE BY MOUTH EVERY DAY 02/15/2013 02/17/2014 Inactive Cymbalta 60 mg capsule,delayed release RxNorm: 399168 Capsule(s) PO TAKE ONE CAPSULE BY MOUTH TWICE A DAY 02/15/2013 02/17/2014 Inactive hydrocodone 10 mg-acetaminophen 325 mg tablet RxNorm: 4131202 1 Tablet(s) PO Q6 PRN 01/22/2013 04/22/2013 Inactive Lipitor 10 mg tablet RxNorm: 921773 Tablet(s) PO TAKE ONE TABLET BY MOUTH EVERY DAY 01/07/2013 09/11/2013 Inactive Cymbalta 60 mg capsule,delayed release RxNorm: 804441 Capsule(s) PO TAKE ONE CAPSULE BY MOUTH TWICE A DAY 01/02/2013 02/14/2013 Inactive Synthroid 100 mcg tablet RxNorm: 957094 1 Tablet(s) PO 12/03/2012 05/06/2013 Inactive Enablex 7.5 mg tablet,extended release RxNorm: 842427 1 Tablet(s) PO daily 11/28/2012 11/27/2012 Inactive Enablex 7.5 mg tablet,extended release RxNorm: 606274 1 Tablet(s) PO daily 11/28/2012 11/28/2012 Inactive scopolamine 1.5 mg 72 hr Transderm Patch RxNorm: 838045 1 Milligram(s) TD q72 hours 11/26/2012 05/06/2013 Inactive hydrochlorothiazide 25 mg tablet RxNorm: 067647 Tablet(s) PO TAKE ONE TABLET BY MOUTH EVERY DAY MUST CALL FOR APPOINTMENT 11/24/2012 07/18/2013 Inactive Cymbalta 60 mg capsule,delayed release RxNorm: 772055 Capsule(s) PO TAKE ONE CAPSULE BY MOUTH TWICE A DAY 10/26/2012 01/01/2013 Inactive Bystolic 10 mg tablet RxNorm: 024800 Tablet(s) PO TAKE ONE TABLET BY MOUTH EVERY DAY 10/12/2012 03/25/2013 Inactive zolpidem 10 mg tablet RxNorm: 476826 1 Tablet(s) PO HS PRN 10/02/2012 01/29/2013 Inactive alprazolam 0.25 mg tablet RxNorm: 660164 1 Tablet(s) PO QDAY PRN 10/02/2012 01/29/2013 Inactive Kenalog 40 mg/mL Susp for Injection RxNorm: 3622946 1 Milliliter(s) Inj 09/24/2012 09/24/2012 Inactive Diflucan 150 mg tablet RxNorm: 792981 1 Tablet(s) PO daily 09/24/2012 09/30/2012 Inactive acyclovir 400 mg tablet RxNorm: 828076 1 Tablet(s) PO QID 09/24/2012 10/08/2012 Inactive Cipro 500 mg tablet RxNorm: 965464 1 Tablet(s) PO BID 09/24/2012 09/30/2012 Inactive Tamiflu 75 mg capsule RxNorm: 044045 1 Capsule(s) PO BID 09/17/2012 09/16/2012 Inactive Tamiflu 75 mg capsule RxNorm: 142371 1 Capsule(s) PO BID 09/17/2012 09/16/2012 Inactive Tamiflu 75 mg capsule RxNorm: 087250 1 Capsule(s) PO BID please disregard order for #14 09/17/2012 09/21/2012 Inactive fluconazole 150 mg tablet RxNorm: 203068 1 Tablet(s) PO daily 09/10/2012 09/13/2012 Inactive ketoconazole 2 % Topical Cream RxNorm: 412073 Application TOP BID apply to affected area BID until gone 08/31/2012 11/01/2017 Inactive Norvasc 10 mg tablet RxNorm: 842119 Tablet(s) PO TAKE ONE TABLET BY MOUTH EVERY DAY 08/29/2012 04/22/2013 Inactive Cipro 500 mg tablet RxNorm: 467617 1 Tablet(s) PO BID 08/17/2012 08/26/2012 Inactive Flagyl 500 mg tablet RxNorm: 302903 1 Tablet(s) PO TID 08/17/2012 08/23/2012 Inactive Cipro 500 mg tablet RxNorm: 823012 1 Tablet(s) PO BID 08/17/2012 08/16/2012 Inactive zolpidem 10 mg tablet RxNorm: 043475 1 Tablet(s) PO HS PRN 08/17/2012 09/15/2012 Inactive Flagyl 500 mg tablet RxNorm: 872175 1 Tablet(s) PO TID 08/17/2012 08/16/2012 Inactive alprazolam 0.25 mg tablet RxNorm: 820775 1 Tablet(s) PO QDAY PRN 08/17/2012 09/15/2012 Inactive Belle Allergy 180 mg tablet RxNorm: 716053 1 Tablet(s) PO daily 08/08/2012 02/03/2013 Inactive hydrochlorothiazide 25 mg tablet RxNorm: 324027 1/2 Tablet(s) PO daily 08/08/2012 11/05/2012 Inactive needs appt Carafate 1 gram tablet RxNorm: 107345 1 Tablet(s) PO QID mix with 10 cc water and dissolve into slurry 08/08/2012 08/21/2012 Inactive hydrocodone 10 mg-acetaminophen 325 mg tablet RxNorm: 7497421 1 Tablet(s) PO Q6 PRN 08/08/2012 01/21/2013 Inactive Synthroid 100 mcg tablet RxNorm: 945402 1 Tablet(s) PO 08/08/2012 12/02/2012 Inactive Cymbalta 60 mg capsule,delayed release RxNorm: 291575 Capsule(s) PO 07/23/2012 10/25/2012 Inactive TAKE ONE CAPSULE BY MOUTH TWICE A DAY Nexium 40 mg capsule,delayed release RxNorm: 526363 Capsule(s) PO 06/20/2012 02/14/2013 Inactive TAKE ONE CAPSULE BY MOUTH EVERY DAY Lipitor 10 mg tablet RxNorm: 594558 Tablet(s) PO 06/20/2012 01/06/2013 Inactive TAKE ONE TABLET BY MOUTH EVERY DAY hydrochlorothiazide 25 mg tablet RxNorm: 533635 1 Tablet(s) PO daily 06/19/2012 08/07/2012 Inactive needs appt alprazolam 0.25 mg tablet RxNorm: 532324 1 Tablet(s) PO QDAY PRN 06/05/2012 07/04/2012 Inactive zolpidem 10 mg tablet RxNorm: 624855 1 Tablet(s) PO HS PRN 06/05/2012 07/04/2012 Inactive zolpidem 10 mg tablet RxNorm: 906531 1 Tablet(s) PO HS PRN 04/16/2012 05/15/2012 Inactive alprazolam 0.25 mg tablet RxNorm: 411779 1 Tablet(s) PO QDAY PRN 04/16/2012 05/15/2012 Inactive Cymbalta 60 mg capsule,delayed release RxNorm: 898619 1 Capsule(s) PO BID 03/22/2012 07/19/2012 Inactive Fioricet 50 mg-325 mg-40 mg tablet RxNorm: 075351 1 Tablet(s) PO Q4 PRN 03/22/2012 11/24/2013 Inactive Bystolic 10 mg tablet RxNorm: 842649 Tablet(s) PO 03/22/2012 10/11/2012 Inactive TAKE ONE TABLET BY MOUTH EVERY DAY potassium chloride ER 10 mEq Tab RxNorm: 429539 1 Tablet(s) PO daily 02/24/2012 03/01/2012 Inactive Lasix 20 mg Tab RxNorm: 886425 1 Tablet(s) PO daily 02/22/2012 02/21/2012 Inactive KCL 10 meq RxNorm: 1 PO daily 02/22/2012 02/21/2012 Inactive potassium chloride ER 10 mEq Tab RxNorm: 509884 1 Tablet(s) PO daily 02/22/2012 02/21/2012 Inactive Lasix 20 mg Tab RxNorm: 589844 1 Tablet(s) PO daily 02/22/2012 02/28/2012 Inactive KCL 10 meq RxNorm: 1 PO daily 02/22/2012 02/22/2012 Inactive potassium chloride ER 10 mEq Tab RxNorm: 286562 1 Tablet(s) PO daily 02/22/2012 02/23/2012 Inactive Rocephin 500 mg Solution for Injection RxNorm: 0714107 Inj 02/15/2012 02/15/2012 Inactive Nexium 40 mg capsule,delayed release RxNorm: 677870 1 Capsule(s) PO daily 02/15/2012 No Stop Date Active Bystolic 10 mg Tab RxNorm: 643201 1 Tablet(s) PO daily 02/15/2012 08/12/2012 Inactive alprazolam 0.25 mg tablet RxNorm: 590672 1 Tablet(s) PO QDAY PRN 01/31/2012 02/29/2012 Inactive zolpidem 10 mg tablet RxNorm: 958135 1 Tablet(s) PO HS PRN 01/31/2012 02/29/2012 Inactive alprazolam 0.25 mg Tab RxNorm: 103452 1 Tablet(s) PO QDAY PRN 12/16/2011 01/14/2012 Inactive zolpidem 10 mg Tab RxNorm: 520027 1 Tablet(s) PO HS PRN 12/16/2011 01/14/2012 Inactive Norvasc 10 mg tablet RxNorm: 967355 1 Tablet(s) PO daily 12/02/2011 02/21/2012 Inactive Lipitor 10 mg tablet RxNorm: 264817 1 Tablet(s) PO daily 11/16/2011 05/13/2012 Inactive zolpidem 10 mg Tab RxNorm: 663750 1 Tablet(s) PO HS PRN 10/26/2011 12/15/2011 Inactive alprazolam 0.25 mg Tab RxNorm: 471542 1 Tablet(s) PO QDAY PRN 10/26/2011 12/15/2011 Inactive hydrochlorothiazide 25 mg tablet RxNorm: 097904 1 Tablet(s) PO daily 09/05/2011 03/02/2012 Inactive Synthroid 75 mcg tablet RxNorm: 615660 1 Tablet(s) PO daily 08/01/2011 02/26/2012 Inactive Abilify 2 mg Tab RxNorm: 704145 1 Tablet(s) PO QHS 08/01/2011 09/10/2012 Inactive dicyclomine 10 mg Cap RxNorm: 970458 1 Capsule(s) PO TID 08/01/2011 10/29/2011 Inactive alprazolam 0.25 mg Tab RxNorm: 475572 1 Tablet(s) PO QDAY PRN 07/26/2011 10/25/2011 Inactive Fioricet 50 mg-325 mg-40 mg tablet RxNorm: 293747 1 Tablet(s) PO Q4 PRN 07/14/2011 03/21/2012 Inactive Rocephin 500 mg Solution for Injection RxNorm: 7861866 1 Milliliter(s) Inj 07/14/2011 08/01/2011 Inactive Nexium 40 mg Capsule, delayed release RxNorm: 395717 1 Capsule(s) PO daily 05/23/2011 10/06/2011 Inactive Bystolic 10 mg tablet RxNorm: 206697 1 Tablet(s) PO daily 05/23/2011 11/18/2011 Inactive Bystolic 10 mg Tab RxNorm: 617997 1 Tablet(s) PO daily 05/23/2011 05/22/2011 Inactive alprazolam 0.25 mg Tab RxNorm: 030034 1 Tablet(s) PO QDAY PRN 05/23/2011 07/25/2011 Inactive Influenza Virus Vaccine 0.5 mL RxNorm: IM 05/23/2011 05/23/2011 Inactive zolpidem 10 mg Tab RxNorm: 139161 1 Tablet(s) PO HS PRN 05/23/2011 10/25/2011 Inactive Rocephin 500 mg Solution for Injection RxNorm: 9145324 1 Milliliter(s) Inj 05/03/2011 07/14/2011 Inactive Kenalog 40 mg/mL Susp for Injection RxNorm: 2099509 1 Milliliter(s) Inj 05/03/2011 07/14/2011 Inactive Bactrim DS 800 mg-160 mg Tab RxNorm: 668233 1 Tablet(s) PO BID 05/03/2011 08/01/2011 Inactive Bystolic 10 mg tablet RxNorm: 304324 1 Tablet(s) PO daily No Start Date Active Flonase 50 mcg/actuation nasal spray,suspension RxNorm: 1742229 2 [place] NASAL daily No Start Date 08/05/2013 Inactive Levaquin 500 mg tablet RxNorm: 207533 Tablet(s) PO No Start Date 04/19/2017 Inactive Duragesic 50 mcg/hr transdermal patch RxNorm: 736221 1 TD q72 hours No Start Date 01/13/2014 Inactive Vesicare 5 mg tablet RxNorm: 395864 1 Tablet(s) PO daily No Start Date 01/06/2015 Inactive Celebrex 200 mg capsule RxNorm: 635258 1 Capsule(s) PO daily No Start Date 04/02/2014 Inactive zolpidem 10 mg Tab RxNorm: 863359 1 Tablet(s) PO HS PRN No Start Date 05/22/2011 Inactive Zyrtec 10 mg Tab RxNorm: 8691340 1 Tablet(s) PO daily No Start Date 08/08/2012 Inactive Flonase 50 mcg/actuation nasal spray,suspension RxNorm: 2936747 1 [place] NASAL daily No Start Date 11/07/2017 Inactive 1 spray to each nostril daily Nexium 40 mg Cap RxNorm: 496052 1 Capsule(s) PO daily No Start Date 05/22/2011 Inactive ketoconazole 2 % Topical Cream RxNorm: 285516 Application TOP BID apply to affected area BID until gone No Start Date 08/30/2012 Inactive aspirin 81 mg tablet RxNorm: 598799 1 Tablet(s) PO daily No Start Date 11/13/2017 Inactive Cymbalta 60 mg capsule,delayed release RxNorm: 215136 1 Capsule(s) PO BID No Start Date 03/21/2012 Inactive alprazolam 0.25 mg Tab RxNorm: 759291 1 Tablet(s) PO QDAY PRN No Start Date 05/22/2011 Inactive baclofen 10 mg tablet RxNorm: 949967 1 Tablet(s) PO TID as needed muscle spasms No Start Date 11/14/2017 Inactive Toprol XL 100 mg 24 hr Tab RxNorm: 800205 1 Tablet(s) PO BID No Start Date 04/25/2011 Inactive Xanax 0.25 mg tablet RxNorm: 880812 1 Tablet(s) PO daily as needed No Start Date 12/27/2015 Inactive Bystolic 10 mg Tab RxNorm: 005849 1 Tablet(s) PO daily No Start Date 05/22/2011 Inactive Fioricet 50 mg-325 mg-40 mg Tab RxNorm: 890314 1 Tablet(s) PO Q4 PRN No Start Date 07/13/2011 Inactive albuterol sulfate HFA 90 mcg/Actuation Aerosol Inhaler RxNorm: 6263253 1 INH Q4 PRN No Start Date 01/06/2015 Inactive Imitrex 50 mg tablet RxNorm: 112237 1 Tablet(s) PO Q8 as needed may repeat x1 dose in 1 hour of inital dose. No Start Date 02/24/2016 Inactive dc fioricet Tessalon 200 mg Cap RxNorm: 744180 1 Capsule(s) PO Q4 PRN No Start Date 02/14/2012 Inactive Zithromax Z-Sergio 250 mg tablet RxNorm: 403131 Tablet(s) PO No Start Date 11/10/2013 Inactive hydrochlorothiazide 25 mg Tab RxNorm: 233108 1 Tablet(s) PO daily No Start Date 09/04/2011 Inactive Fish Oil 1,000 mg Cap RxNorm: 1 Capsule(s) PO TID No Start Date 11/08/2017 Inactive Deplin 15 mg Tab RxNorm: 1 Tablet(s) PO daily No Start Date 08/01/2011 Inactive Brilinta 90 mg tablet RxNorm: 2263202 1 Tablet(s) PO BID No Start Date 11/23/2015 Inactive Synthroid 75 mcg Tab RxNorm: 350785 1 Tablet(s) PO daily No Start Date 07/31/2011 Inactive ciprofloxacin 0.3 % eye drops RxNorm: 004251 2 Drop(s) ophthalmic (eye) Q2H while awake x 2 days, then Q4H x 5 days No Start Date 11/22/2017 Inactive scopolamine 1.5 mg 72 hr Transderm Patch RxNorm: 190662 1 Milligram(s) TD q72 hours No Start Date 11/25/2012 Inactive hydrocodone-acetaminophen 10 mg-325 mg tablet RxNorm: 6501819 1 Tablet(s) PO Q6 PRN No Start Date 08/07/2012 Inactive Phenergan with Codeine Syrup RxNorm: 5-10 Milliliter(s) PO Q6 PRN No Start Date 02/14/2012 Inactive Norvasc 10 mg Tab RxNorm: 507382 1 Tablet(s) PO daily No Start Date 12/01/2011 Inactive Zithromax Z-Sergio 250 mg Tab RxNorm: 756174 Tablet(s) PO No Start Date 08/01/2011 Inactive Medication Administered Medication Codes Instructions Start Date Status ceftriaxone 500 mg solution for injection RxNorm: 3562726 05/28/2018 No longer Active Kenalog 40 mg/mL suspension for injection RxNorm: 4818952 Milliliter 05/28/2018 No longer Active ceftriaxone 500 mg solution for injection RxNorm: 8596918 500Milligram 01/19/2018 No longer Active Kenalog 40 mg/mL suspension for injection RxNorm: 3665606 1Milliliter 01/19/2018 No longer Active Kenalog 40 mg/mL suspension for injection RxNorm: 4942581 1Milliliter 06/27/2017 No longer Active Kenalog 40 mg/mL suspension for injection RxNorm: 2062467 Milliliter 04/20/2017 No longer Active Kenalog 40 mg/mL suspension for injection RxNorm: 8273148 1Milliliter 03/14/2017 No longer Active ceftriaxone 500 mg solution for injection RxNorm: 9140616 1Milliliter 11/28/2016 No longer Active Kenalog 40 mg/mL suspension for injection RxNorm: 0625982 Milliliter 11/07/2016 No longer Active ceftriaxone 500 mg solution for injection RxNorm: 6338022 11/07/2016 No longer Active ceftriaxone 500 mg solution for injection RxNorm: 6721045 12/07/2015 No longer Active Kenalog 40 mg/mL suspension for injection RxNorm: 1505734 1Milliliter 11/24/2015 No longer Active ceftriaxone 500 mg solution for injection RxNorm: 7002214 Milliliter 11/24/2015 No longer Active promethazine 25 mg/mL injection solution RxNorm: 539032 Milliliter 08/27/2015 No longer Active ketorolac 60 mg/2 mL intramuscular solution RxNorm: 906347 Milliliter 08/27/2015 No longer Active Kenalog 40 mg/mL suspension for injection RxNorm: 2460330 Milliliter 08/10/2015 No longer Active ceftriaxone 500 mg solution for injection RxNorm: 7366337 08/10/2015 No longer Active ceftriaxone 500 mg solution for injection RxNorm: 7999930 1Milliliter 07/28/2015 No longer Active Kenalog 40 mg/mL suspension for injection RxNorm: 2074715 Milliliter 03/19/2015 No longer Active Kenalog 40 mg/mL suspension for injection RxNorm: 4391031 Milliliter 06/23/2014 No longer Active ceftriaxone 500 mg solution for injection RxNorm: 914120 06/23/2014 No longer Active Rocephin 500 mg solution for injection RxNorm: 057528 1mlMilliliter 09/24/2013 No longer Active Rocephin 500 mg solution for injection RxNorm: 923026 1Milliliter 09/19/2013 No longer Active Rocephin 500 mg solution for injection RxNorm: 3938965 1 07/10/2013 No longer Active Kenalog 40 mg/mL suspension for injection RxNorm: 1348296 1Milliliter 07/10/2013 No longer Active Kenalog 40 mg/mL Susp for Injection RxNorm: 0232147 1Milliliter 09/24/2012 No longer Active Rocephin 500 mg Solution for Injection RxNorm: 6732496 02/15/2012 No longer Active Influenza Virus Vaccine [...] Ord30 C/HDL 4.3 Ratio 01/01/2019 Comp Metabolic Aqc028 NA 140 mEq/L 01/01/2019 Comp Metabolic Sdq910 K 3.8 mEq/L 01/01/2019 Comp Metabolic Zif171 CL 103 mEq/L 01/01/2019 Comp Metabolic Npv296 CO2 28.0 mEq/L 01/01/2019 Comp Metabolic Lie919 ANION GAP 13 01/01/2019 Comp Metabolic Riu265 GLUCOSE 93 mg/dL 01/01/2019 Comp Metabolic Htd226 Creat 0.7 mg/dL 01/01/2019 Comp Metabolic Zxz842 eGFR 86 ml/min/1.73m2 01/01/2019 Comp Metabolic Shk236 BUN 21 mg/dL 01/01/2019 Comp Metabolic Zue705 B/C Ratio 29.6 Ratio 01/01/2019 Comp Metabolic Xww416 CALCIUM 9.4 mg/dL 01/01/2019 Comp Metabolic Roy794 ALK PHOS 67 U/L 01/01/2019 Comp Metabolic Fng765 AST(SGOT) 27 U/L 01/01/2019 Comp Metabolic Kfr990 ALT(SGPT) 30 U/L 01/01/2019 Comp Metabolic Dil713 BILI T 0.5 mg/dL 01/01/2019 Comp Metabolic Tmr185 ALBUMIN 4.0 g/dL 01/01/2019 Comp Metabolic Vco495 TPRO 6.8 g/dL 01/01/2019 Comp Metabolic Fhx132 GLOB 2.8 g/dL 01/01/2019 Comp Metabolic Lbn194 A/G Ratio 1.4 Ratio 01/01/2019 Comp Metabolic Std845 Osmo 282 mOsmo 01/01/2019 Free T4 Pyo120 FREE T4 0.71 ng/dL 10/31/2018 Tsh Ord6 TSH (3rd IS) 7.87 uIU/mL 10/31/2018 Lipid Ord30 CHOL 170 mg/dL 10/31/2018 Lipid Ord30 HDL 53.0 mg/dl 10/31/2018 Lipid Ord30 TRIG 85 mg/dL 10/31/2018 Lipid Ord30 LDL 100 mg/dL 10/31/2018 Lipid Ord30 C/HDL 3.2 Ratio 10/31/2018 Comp Metabolic Mtb131 NA 142 mEq/L 10/31/2018 Comp Metabolic Nru962 K 4.0 mEq/L 10/31/2018 Comp Metabolic Wlq988 CL 106 mEq/L 10/31/2018 Comp Metabolic Oay624 CO2 27.0 mEq/L 10/31/2018 Comp Metabolic Vjs878 ANION GAP 13 10/31/2018 Comp Metabolic Pok360 GLUCOSE 114 mg/dL 10/31/2018 Comp Metabolic Bdw371 Creat 0.7 mg/dL 10/31/2018 Comp Metabolic Sts855 eGFR 90 ml/min/1.73m2 10/31/2018 Comp Metabolic Cvt169 BUN 21 mg/dL 10/31/2018 Comp Metabolic Unh321 B/C Ratio 30.9 Ratio 10/31/2018 Comp Metabolic Ezc441 CALCIUM 9.7 mg/dL 10/31/2018 Comp Metabolic Rhf582 ALK PHOS 63 U/L 10/31/2018 Comp Metabolic Wfv542 AST(SGOT) 24 U/L 10/31/2018 Comp Metabolic Kkf308 ALT(SGPT) 21 U/L 10/31/2018 Comp Metabolic Jfy610 BILI T 0.6 mg/dL 10/31/2018 Comp Metabolic Jpg887 ALBUMIN 4.1 g/dL 10/31/2018 Comp Metabolic Bbn407 TPRO 6.6 g/dL 10/31/2018 Comp Metabolic Nni959 GLOB 2.5 g/dL 10/31/2018 Comp Metabolic Ajr817 A/G Ratio 1.7 Ratio 10/31/2018 Comp Metabolic Zic120 Osmo 287 mOsmo 10/31/2018 Cbc With Differential [...] 30.9 pg 10/31/2018 Cbc With Differential Ord2 [place]% 8.0 % 10/31/2018 Cbc With Differential Ord2 [...] 1.88 K/ul 10/31/2018 Cbc With Differential Ord2 [place] ABS# 0.6 K/ul 10/31/2018 Cbc With Differential Ord2 Eos ABS# 0.5 K/ul 10/31/2018 Cbc With Differential Ord2 Baso ABS# 0.1 K/ul 10/31/2018 Comp Metabolic Ygx920 NA 141 mEq/L 09/12/2017 Comp Metabolic Hxu182 K 4.1 mEq/L 09/12/2017 Comp Metabolic Xja840 CL 105 mEq/L 09/12/2017 Comp Metabolic Kfe713 CO2 30.0 mEq/L 09/12/2017 Comp Metabolic Nex588 ANION GAP 10 09/12/2017 Comp Metabolic Nle448 GLUCOSE 97 mg/dL 09/12/2017 Comp Metabolic Mct664 Creat 0.7 mg/dL 09/12/2017 Comp Metabolic Hdx220 eGFR 91 ml/min/1.73m2 09/12/2017 Comp Metabolic Pfd856 BUN 18 mg/dL 09/12/2017 Comp Metabolic Nch348 B/C Ratio 26.5 Ratio 09/12/2017 Comp Metabolic Wsm549 CALCIUM 9.7 mg/dL 09/12/2017 Comp Metabolic Ygb237 ALK PHOS 60 U/L 09/12/2017 Comp Metabolic Sla337 AST(SGOT) 22 U/L 09/12/2017 Comp Metabolic Fso789 ALT(SGPT) 23 U/L 09/12/2017 Comp Metabolic Pon801 BILI T 0.4 mg/dL 09/12/2017 Comp Metabolic Vek259 ALBUMIN 3.8 g/dL 09/12/2017 Comp Metabolic Kwc066 TPRO 6.4 g/dL 09/12/2017 Comp Metabolic Nze593 GLOB 2.6 g/dL 09/12/2017 Comp Metabolic Pli652 A/G Ratio 1.5 Ratio 09/12/2017 Comp Metabolic Ddx442 Osmo 283 mOsmo 09/12/2017 Cbc With Differential [...] 30.7 pg 09/12/2017 Cbc With Differential Ord2 [place]% 7.2 % 09/12/2017 Cbc With Differential Ord2 [...] 2.46 K/ul 09/12/2017 Cbc With Differential Ord2 [place] ABS# 0.6 K/ul 09/12/2017 Cbc With Differential [...] 31.4 pg 11/07/2016 Cbc With Differential Ord2 [place]% 6.1 % 11/07/2016 Cbc With Differential Ord2 [...] 2.48 K/ul 11/07/2016 Cbc With Differential Ord2 [place] ABS# 0.6 K/ul 11/07/2016 Cbc With Differential Ord2 Eos ABS# 0.3 K/ul 11/07/2016 Cbc With Differential Ord2 Baso ABS# 0.1 K/ul 11/07/2016 Comp Metabolic Lod747 NA 139 mEq/L 11/07/2016 Comp Metabolic Rmg226 K 3.8 mEq/L 11/07/2016 Comp Metabolic Weq223 CL 106 mEq/L 11/07/2016 Comp Metabolic Bhm992 CO2 25.0 mEq/L 11/07/2016 Comp Metabolic Uyp965 ANION GAP 12 11/07/2016 Comp Metabolic Pve664 GLUCOSE 98 mg/dL 11/07/2016 Comp Metabolic Dmk630 Creat 0.8 mg/dL 11/07/2016 Comp Metabolic Ybc785 eGFR 71 ml/min/1.73m2 11/07/2016 Comp Metabolic Fnj476 BUN 36 mg/dL 11/07/2016 Comp Metabolic Ddp543 B/C Ratio 42.9 Ratio 11/07/2016 Comp Metabolic Mcv863 CALCIUM 9.9 mg/dL 11/07/2016 Comp Metabolic Xfc880 ALK PHOS 57 U/L 11/07/2016 Comp Metabolic Dwt170 AST(SGOT) 24 U/L 11/07/2016 Comp Metabolic Ljp237 ALT(SGPT) 28 U/L 11/07/2016 Comp Metabolic Xpu318 BILI T 0.4 mg/dL 11/07/2016 Comp Metabolic Olh402 ALBUMIN 4.2 g/dL 11/07/2016 Comp Metabolic Lbv800 TPRO 7.0 g/dL 11/07/2016 Comp Metabolic Prz528 GLOB 2.8 g/dL 11/07/2016 Comp Metabolic Nia546 A/G Ratio 1.5 Ratio 11/07/2016 Comp Metabolic Vzh696 Osmo 286 mOsmo 11/07/2016 Free T4 Dvd527 FREE T4 0.75 ng/dL 11/07/2016 Tsh Ord6 hTSH II 3.46 uIU/mL 11/07/2016 Comp Metabolic Xpv839 NA 138 mEq/L 05/10/2016 Comp Metabolic Blk539 K 3.8 mEq/L 05/10/2016 Comp Metabolic Dls027 CL 102 mEq/L 05/10/2016 Comp Metabolic Wse959 CO2 29.0 mEq/L 05/10/2016 Comp Metabolic Lom008 ANION GAP 11 05/10/2016 Comp Metabolic Mof072 GLUCOSE 107 mg/dL 05/10/2016 Comp Metabolic Zzw789 Creat 0.7 mg/dL 05/10/2016 Comp Metabolic Ptj513 eGFR 93 ml/min/1.73m2 05/10/2016 Comp Metabolic Awu473 BUN 18 mg/dL 05/10/2016 Comp Metabolic Ogq505 B/C Ratio 26.9 Ratio 05/10/2016 Comp Metabolic Tzf272 CALCIUM 9.8 mg/dL 05/10/2016 Comp Metabolic Dbt475 ALK PHOS 60 U/L 05/10/2016 Comp Metabolic Ind164 AST(SGOT) 21 U/L 05/10/2016 Comp Metabolic Imu380 ALT(SGPT) 23 U/L 05/10/2016 Comp Metabolic Qkv622 BILI T 0.5 mg/dL 05/10/2016 Comp Metabolic Fdv766 ALBUMIN 4.1 g/dL 05/10/2016 Comp Metabolic Jbi252 TPRO 6.7 g/dL 05/10/2016 Comp Metabolic Mkm110 GLOB 2.7 g/dL 05/10/2016 Comp Metabolic Xho666 A/G Ratio 1.5 Ratio 05/10/2016 Comp Metabolic Dda291 Osmo 278 mOsmo 05/10/2016 Lipid Ord30 CHOL 169 mg/dL 05/10/2016 Lipid Ord30 HDL 50.0 mg/dl 05/10/2016 Lipid Ord30 TRIG 161 mg/dL 05/10/2016 Lipid Ord30 LDL 87 mg/dL 05/10/2016 Lipid Ord30 C/HDL 3.4 Ratio 05/10/2016 Comp Metabolic Sdh740 NA 137 mEq/L 06/12/2015 Comp Metabolic Xoo130 K 3.8 mEq/L 06/12/2015 Comp Metabolic Lzc137 CL 104 mEq/L 06/12/2015 Comp Metabolic Xns994 CO2 24.0 mEq/L 06/12/2015 Comp Metabolic Ves321 ANION GAP 13 06/12/2015 Comp Metabolic Nnj448 GLUCOSE 92 mg/dL 06/12/2015 Comp Metabolic Qbq386 Creat 0.7 mg/dL 06/12/2015 Comp Metabolic Qsi844 eGFR 87 ml/min/1.73m2 06/12/2015 Comp Metabolic Juu983 BUN 31 mg/dL 06/12/2015 Comp Metabolic Lwd570 B/C Ratio 43.7 Ratio 06/12/2015 Comp Metabolic Knc978 CALCIUM 10.0 mg/dL 06/12/2015 Comp Metabolic Fpw525 ALK PHOS 58 U/L 06/12/2015 Comp Metabolic Kzp287 AST(SGOT) 32 U/L 06/12/2015 Comp Metabolic Moc639 ALT(SGPT) 33 U/L 06/12/2015 Comp Metabolic Ljb604 BILI T 0.5 mg/dL 06/12/2015 Comp Metabolic Deu044 ALBUMIN 4.1 g/dL 06/12/2015 Comp Metabolic Enz654 TPRO 6.6 g/dL 06/12/2015 Comp Metabolic Vwj220 GLOB 2.5 g/dL 06/12/2015 Comp Metabolic Hzd077 A/G Ratio 1.6 Ratio 06/12/2015 Comp Metabolic Zkn754 Osmo 280 mOsmo 06/12/2015 Cbc With Differential [...] Differential Ord2 RDW 14.2 % 06/12/2015 CBC 7947149 WBC 8.7 10e9/L 04/30/2013 CBC 3688634 RBC 4.63 10e12/L 04/30/2013 CBC 9666403 HGB 14.1 g/dL 04/30/2013 CBC 9336148 HCT DET 42.2 % 04/30/2013 CBC 1490875 MCV 91.1 fL 04/30/2013 CBC 2189925 MCH 30.5 pg 04/30/2013 CBC 3118000 MCHC 33.4 g/dL 04/30/2013 CBC 6271327 PLT 248 10e9/L 04/30/2013 CBC 7640127 MPV 12.1 fL 04/30/2013 CBC 1049669 LARA % 59.0 % 04/30/2013 CBC 8447693 LY % 27.6 % 04/30/2013 CBC 0053924 MON % 8.0 % 04/30/2013 CBC 8021207 EOS % 4.8 % 04/30/2013 CBC 6247944 BASO % 0.6 % 04/30/2013 CBC 5147391 RDW 13.3 % 04/30/2013 CBC 5601800 ABS LARA 5.13 10e9/L 04/30/2013 CBC 4434185 ABS LYMPH 2.40 10e9/L 04/30/2013 CBC 7023148 ABS MONO 0.70 10e9/L 04/30/2013 CBC 9318024 ABS EOS 0.42 10e9/L 04/30/2013 CBC 6965689 ABS BASO 0.05 10e9/L 04/30/2013 CBC 7637093 RDW-SD 43.1 fL 04/30/2013 TSH 2089648 TSH 4.339 uIU/ML 04/30/2013 A1C HPLC 3900585 A1C HPLC 46117-9 5.6 % 04/30/2013 FREE T4 1985464 FREE T4 0.84 NG/DL 04/30/2013 GFR CALC 9001131 GFR AA >60 ML/MIN 04/30/2013 GFR CALC 9116392 GFR NON-AA >60 ML/MIN 04/30/2013 CHEM 14 6747297 AST 22 U/L 04/30/2013 CHEM 14 3442849 ALT 22 IU/L 04/30/2013 CHEM 14 5260298 BUN 24 MG/DL 04/30/2013 CHEM 14 3187035 ALBUMIN 4.2 GM/DL 04/30/2013 CHEM 14 8602215 CHLORIDE 107 MMOL/L 04/30/2013 CHEM 14 9111746 BILI TOT 0.3 MG/DL 04/30/2013 CHEM 14 1967265 ALK PHOS 88 U/L 04/30/2013 CHEM 14 2316560 SODIUM 141 MMOL/L 04/30/2013 CHEM 14 0936877 CREATININE 0.60 MG/DL 04/30/2013 CHEM 14 1540756 CALCIUM 9.9 MG/DL 04/30/2013 CHEM 14 5180544 POTASSIUM 3.7 MMOL/L 04/30/2013 CHEM 14 9645323 PROT TOT 6.6 GM/DL 04/30/2013 CHEM 14 3153527 GLUCOSE 123 MG/DL 04/30/2013 CHEM 14 9942762 BICARB 25 MMOL/L 04/30/2013 CHEM 14 6213359 ANION GAP 9 MEQ/L 04/30/2013 LIPID GRP HDL TEST 46 MG/DL 04/30/2013 LIPID GRP TRIG 148 MG/DL 04/30/2013 LIPID GRP TEST LDL 75 MG/DL 04/30/2013 LIPID GRP CHOL 151 MG/DL 04/30/2013 LIPID GRP RCHOL/HDL 3.28 RATIO 04/30/2013 TSH 8935682 TSH 3.341 uIU/ML 11/29/2012 CBC 6406481 WBC 8.4 10e9/L 11/29/2012 CBC 6431078 RBC 4.77 10e12/L 11/29/2012 CBC 1094120 HGB 14.9 g/dL 11/29/2012 CBC 3575207 HCT DET 44.2 % 11/29/2012 CBC 4597831 MCV 92.7 fL 11/29/2012 CBC 6247415 MCH 31.2 pg 11/29/2012 CBC 4582750 MCHC 33.7 g/dL 11/29/2012 CBC 2101914 PLT 253 10e9/L 11/29/2012 CBC 0028390 MPV 11.8 fL 11/29/2012 CBC 3907790 LARA % 54.9 % 11/29/2012 CBC 9779997 LY % 29.0 % 11/29/2012 CBC 9420108 MON % 10.4 % 11/29/2012 CBC 9105748 EOS % 5.1 % 11/29/2012 CBC 6044310 BASO % 0.6 % 11/29/2012 CBC 4434284 RDW 13.8 % 11/29/2012 CBC 7853498 ABS LARA 4.61 10e9/L 11/29/2012 CBC 0703173 ABS LYMPH 2.44 10e9/L 11/29/2012 CBC 7007758 ABS MONO 0.87 10e9/L 11/29/2012 CBC 6201914 ABS EOS 0.43 10e9/L 11/29/2012 CBC 4165421 ABS BASO 0.05 10e9/L 11/29/2012 CBC 8744531 RDW-SD 45.9 fL 11/29/2012 CHEM 14 5235242 AST 25 U/L 11/29/2012 CHEM 14 2272780 ALT 26 IU/L 11/29/2012 CHEM 14 7917678 BUN 25 MG/DL 11/29/2012 CHEM 14 8075996 ALBUMIN 4.4 GM/DL 11/29/2012 CHEM 14 9253936 CHLORIDE 106 MMOL/L 11/29/2012 CHEM 14 3141187 BILI TOT 0.4 MG/DL 11/29/2012 CHEM 14 4968459 ALK PHOS 86 U/L 11/29/2012 CHEM 14 0439923 SODIUM 141 MMOL/L 11/29/2012 CHEM 14 2781487 CREATININE 0.80 MG/DL 11/29/2012 CHEM 14 1874743 CALCIUM 9.7 MG/DL 11/29/2012 CHEM 14 9185702 POTASSIUM 4.0 MMOL/L 11/29/2012 CHEM 14 2291346 PROT TOT 6.6 GM/DL 11/29/2012 CHEM 14 9834336 GLUCOSE 112 MG/DL 11/29/2012 CHEM 14 2024589 BICARB 29 MMOL/L 11/29/2012 CHEM 14 0649350 ANION GAP 6 MEQ/L 11/29/2012 A1C HPLC 0020826 A1C HPLC 41448-4 5.5 % 11/29/2012 LIPID GRP HDL TEST 54 MG/DL 11/29/2012 LIPID GRP TRIG 77 MG/DL 11/29/2012 LIPID GRP TEST LDL 78 MG/DL 11/29/2012 LIPID GRP CHOL 147 MG/DL 11/29/2012 LIPID GRP RCHOL/HDL 2.72 RATIO 11/29/2012 FREE T4 3290196 FREE T4 1.23 NG/DL 11/29/2012 GFR CALC 3419762 GFR AA >60 ML/MIN 11/29/2012 GFR CALC 6463280 GFR NON-AA >60 ML/MIN 11/29/2012 CHEM 14 6501059 AST 23 U/L 08/07/2012 CHEM 14 4169917 ALT 34 IU/L 08/07/2012 CHEM 14 9075971 BUN 26 MG/DL 08/07/2012 CHEM 14 8850949 ALBUMIN 4.4 GM/DL 08/07/2012 CHEM 14 6696000 CHLORIDE 105 MMOL/L 08/07/2012 CHEM 14 5353190 BILI TOT 0.5 MG/DL 08/07/2012 CHEM 14 1224701 ALK PHOS 79 U/L 08/07/2012 CHEM 14 6736932 SODIUM 140 MMOL/L 08/07/2012 CHEM 14 9857730 CREATININE 0.71 MG/DL 08/07/2012 CHEM 14 5501985 CALCIUM 10.4 MG/DL 08/07/2012 CHEM 14 8980031 POTASSIUM 3.8 MMOL/L 08/07/2012 CHEM 14 3519875 PROT TOT 6.8 GM/DL 08/07/2012 CHEM 14 7036642 GLUCOSE 104 MG/DL 08/07/2012 CHEM 14 3185082 BICARB 27 MMOL/L 08/07/2012 CHEM 14 3596731 ANION GAP 8 MEQ/L 08/07/2012 A1C HPLC 0352137 A1C HPLC 48838-1 5.4 % 08/07/2012 FREE T4 5270094 FREE T4 1.11 NG/DL 08/07/2012 LIPID GRP HDL TEST 50 MG/DL 08/07/2012 LIPID GRP TRIG 127 MG/DL 08/07/2012 LIPID GRP TEST LDL 93 MG/DL 08/07/2012 LIPID GRP CHOL 168 MG/DL 08/07/2012 LIPID GRP RCHOL/HDL 3.36 RATIO 08/07/2012 CBC 3567217 WBC 8.7 10e9/L 08/07/2012 CBC 2980350 RBC 4.67 10e12/L 08/07/2012 CBC 7074041 HGB 14.4 g/dL 08/07/2012 CBC 3351951 HCT DET 42.8 % 08/07/2012 CBC 1977667 MCV 91.6 fL 08/07/2012 CBC 7437914 MCH 30.8 pg 08/07/2012 CBC 2240343 MCHC 33.6 g/dL 08/07/2012 CBC 3685689 PLT 271 10e9/L 08/07/2012 CBC 7725061 MPV 12.3 fL 08/07/2012 CBC 4186883 LARA % 50.6 % 08/07/2012 CBC 9980196 LY % 34.9 % 08/07/2012 CBC 1104822 MON % 9.1 % 08/07/2012 CBC 7649259 EOS % 5.1 % 08/07/2012 CBC 5459587 BASO % 0.3 % 08/07/2012 CBC 7077867 RDW 13.6 % 08/07/2012 CBC 3204237 ABS LARA 4.40 10e9/L 08/07/2012 CBC 0888820 ABS LYMPH 3.04 10e9/L 08/07/2012 CBC 0502190 ABS MONO 0.79 10e9/L 08/07/2012 CBC 7057580 ABS EOS 0.44 10e9/L 08/07/2012 CBC 9027575 ABS BASO 0.03 10e9/L 08/07/2012 CBC 4721398 RDW-SD 44.1 fL 08/07/2012 TSH 3281997 TSH 7.419 uIU/ML 08/07/2012 GFR CALC 7870859 GFR AA >60 ML/MIN 08/07/2012 GFR CALC 7908522 GFR NON-AA >60 ML/MIN 08/07/2012 A1C HPLC 7942000 A1C HPLC 41943-9 5.3 % 02/21/2012 TSH 2435556 TSH 0.832 uIU/ML 02/16/2012 FREE T4 9243248 FREE T4 1.04 NG/DL 02/16/2012 GFR CALC 6895239 GFR AA >60 ML/MIN 02/16/2012 GFR CALC 3397185 GFR NON-AA >60 ML/MIN 02/16/2012 BMP 1346617 GLUCOSE 112 MG/DL 02/16/2012 BMP 4936049 CREATININE 0.65 MG/DL 02/16/2012 BMP 6046940 BUN 17 MG/DL 02/16/2012 BMP 5564779 SODIUM 144 MMOL/L 02/16/2012 BMP 5648697 POTASSIUM 4.0 MMOL/L 02/16/2012 BMP 9241983 CHLORIDE 107 MMOL/L 02/16/2012 BMP 0344749 BICARB 29 MMOL/L 02/16/2012 BMP 7942060 ANION GAP 8 MEQ/L 02/16/2012 BMP 1620080 CALCIUM 9.5 MG/DL 02/16/2012 CBC 6996053 WBC 7.1 10e9/L 02/16/2012 CBC 1562620 RBC 4.47 10e12/L 02/16/2012 CBC 0603373 HGB 13.5 g/dL 02/16/2012 CBC 8105625 HCT DET 40.7 % 02/16/2012 CBC 7662098 MCV 91.1 fL 02/16/2012 CBC 3250144 MCH 30.2 pg 02/16/2012 CBC 2719793 MCHC 33.2 g/dL 02/16/2012 CBC 2512703 PLT 238 10e9/L 02/16/2012 CBC 1323202 MPV 11.4 fL 02/16/2012 CBC 7752966 LARA % 55.7 % 02/16/2012 CBC 7583914 LY % 29.6 % 02/16/2012 CBC 1862569 MON % 9.2 % 02/16/2012 CBC 5879176 EOS % 5.1 % 02/16/2012 CBC 0112617 BASO % 0.4 % 02/16/2012 CBC 4047265 RDW 13.0 % 02/16/2012 CBC 1879879 ABS LARA 3.95 10e9/L 02/16/2012 CBC 8658598 ABS LYMPH 2.10 10e9/L 02/16/2012 CBC 0702693 ABS MONO 0.65 10e9/L 02/16/2012 CBC 1761114 ABS EOS 0.36 10e9/L 02/16/2012 CBC 1082236 ABS BASO 0.03 10e9/L 02/16/2012 CBC 4846079 RDW-SD 42.4 fL 02/16/2012 URINALYSIS NONAUTO W/O SCOPE 90400 Specific [place] 1.015 DateTime(Free Text in Aprima) URINALYSIS NONAUTO W/O SCOPE 63488 PH 7 DateTime(Free Text in Aprima) URINALYSIS NONAUTO W/O SCOPE 46597 GLUCOSE neg DateTime(Free Text in Apr[employer]) URINALYSIS NONAUTO W/O SCOPE 41295 Protein 1+ DateTime(Free Text in Apr[employer]) URINALYSIS NONAUTO W/O SCOPE 85817 Blood neg DateTime(Free Text in Apr[employer]) URINALYSIS NONAUTO W/O SCOPE 03212 Bilirubin neg DateTime(Free Text in Apr[employer]) URINALYSIS NONAUTO W/O SCOPE 36431 Ketones neg DateTime(Free Text in Apr[employer]) URINALYSIS NONAUTO W/O SCOPE 40621 Urobilinogen neg DateTime(Free Text in Apr[employer]) URINALYSIS NONAUTO W/O SCOPE 31422 Nitrite postive DateTime(Free Text in Apr[employer]) URINALYSIS NONAUTO W/O SCOPE 13179 Leukocytes 3+ DateTime(Free Text in Apr[employer]) URINALYSIS NONAUTO W/O SCOPE 46297 Specific [place] 1.030 DateTime(Free Text in Aprima) URINALYSIS NONAUTO W/O SCOPE 79316 PH 6 DateTime(Free Text in Aprima) URINALYSIS NONAUTO W/O SCOPE 50719 GLUCOSE neg DateTime(Free Text in Aprima) URINALYSIS NONAUTO W/O SCOPE 93492 Protein neg DateTime(Free Text in Aprima) URINALYSIS NONAUTO W/O SCOPE 66568 Blood neg DateTime(Free Text in Aprima) URINALYSIS NONAUTO W/O SCOPE 32532 Bilirubin neg DateTime(Free Text in Aprima) URINALYSIS NONAUTO W/O SCOPE 57583 Ketones neg DateTime(Free Text in Aprima) URINALYSIS NONAUTO W/O SCOPE 60145 Urobilinogen neg DateTime(Free Text in Aprima) URINALYSIS NONAUTO W/O SCOPE 78307 Nitrite neg DateTime(Free Text in Aprima) URINALYSIS NONAUTO W/O SCOPE 82131 Leukocytes trace DateTime(Free Text in Aprima) URINALYSIS NONAUTO W/O SCOPE 43609 Specific [place] 1.005 DateTime(Free Text in Aprima) URINALYSIS NONAUTO W/O SCOPE 65054 PH 5 DateTime(Free Text in Aprima) URINALYSIS NONAUTO W/O SCOPE 95650 GLUCOSE neg DateTime(Free Text in Aprima) URINALYSIS NONAUTO W/O SCOPE 58096 Protein neg DateTime(Free Text in Aprima) URINALYSIS NONAUTO W/O SCOPE 37423 Blood neg DateTime(Free Text in Aprima) URINALYSIS NONAUTO W/O SCOPE 48624 Bilirubin neg DateTime(Free Text in Aprima) URINALYSIS NONAUTO W/O SCOPE 56731 Ketones neg DateTime(Free Text in Aprima) URINALYSIS NONAUTO W/O SCOPE 27044 Urobilinogen neg DateTime(Free Text in Aprima) URINALYSIS NONAUTO W/O SCOPE 73860 Nitrite neg DateTime(Free Text in Aprima) URINALYSIS NONAUTO W/O SCOPE 59464 Leukocytes neg DateTime(Free Text in Aprima) UA 49633 Specific [place] 1.030 DateTime(Free Text in Aprima) UA 85536 PH 5 DateTime(Free Text in Aprima) UA 12483 GLUCOSE neg DateTime(Free Text in Aprima) UA 60976 Protein trace DateTime(Free Text in Aprima) UA 10439 Blood large DateTime(Free Text in Aprima) UA 18764 Bilirubin neg DateTime(Free Text in Aprima) UA 06847 Ketones neg DateTime(Free Text in Aprima) UA 45486 Urobilinogen neg DateTime(Free Text in Aprima) UA 62504 Nitrite neg DateTime(Free Text in Aprima) UA 32582 Leukocytes large DateTime(Free Text in Aprima) Review [...] affect 11/07/2016 None Full Exam - General 1995 Psychiatric [...] distress 08/27/2015 None Full Exam - General 1995 Constitutional general appearance Overall: well nourished 08/27/2015 [...] murmurs 09/24/2013 None Full Exam - General 1995 Abdomen abdominal exam Overall: no tenderness 09/24/2013 None Full Exam - General 1994 Abdomen abdominal exam Overall: normal bowel sounds 09/24/2013 None Full Exam - General 1995 [...] middle finger Full Exam - General 1995 Musculoskeletal gait and station Overall: normal gait 09/19/2013 None Full Exam - General 1995 [...] tenderness 12/03/2012 None Full Exam - General 1995 [...] bilaterally 09/10/2012 None Full Exam - General 1995 Cardiovascular extremities Overall: no clubbing 09/10/2012 None [...] tenderness 09/10/2012 None Full Exam - General 1995 Abdomen abdominal exam Overall: normal bowel sounds 09/10/2012 None Full Exam - General 1995 Lymphatic neck nodes Overall: anterior cervical chain [...] time 09/10/2012 None Full Exam - General 1995 Ears/Nose/Throat oral cavity/pharynx/larynx Oropharynx: thrush 09/10/2012 None [...] Codes Date URINALYSIS NONAUTO W/O SCOPE CPT-4: 15051 07/10/2018 TRIAMCINOLONE ACET INJ NOS CPT-4: J3301 05/28/2018 ROCEPHIN, PER 250 MG CPT- 4: J0696 05/28/2018 ROCEPHIN, PER 250 MG CPT- 4: J0696 01/19/2018 TRIAMCINOLONE ACET INJ NOS CPT-4: J3301 01/19/2018 PPPS, SUBSEQ VISIT CPT- 4: G0439 11/23/2017 TRIAMCINOLONE ACET INJ NOS CPT-4: J3301 06/27/2017 THER/PROPH/DIAG INJ SC/IM CPT-4: 72283 04/20/2017 TRIAMCINOLONE ACET INJ NOS CPT-4: J3301 04/20/2017 TRIAMCINOLONE ACET INJ NOS CPT-4: J3301 03/14/2017 ROCEPHIN, PER 250 MG CPT- 4: J0696 03/14/2017 DESTRUCT PREMALG LESION CPT-4: 01338 12/05/2016 DESTRUCT PREMALG LES 2-14 CPT-4: 71109 12/05/2016 URINALYSIS NONAUTO W/O SCOPE CPT-4: 53590 11/28/2016 ROCEPHIN, PER 250 MG CPT- 4: J0696 11/28/2016 PPPS, SUBSEQ VISIT CPT- 4: G0439 11/07/2016 THER/PROPH/DIAG INJ SC/IM CPT-4: 88629 11/07/2016 TRIAMCINOLONE ACET INJ NOS CPT-4: J3301 11/07/2016 ROCEPHIN, PER 250 MG CPT- 4: J0696 11/07/2016 THER/PROPH/DIAG INJ SC/IM CPT-4: 98588 08/15/2016 TRIAMCINOLONE ACET INJ NOS CPT-4: J3301 08/15/2016 ROCEPHIN, PER 250 MG CPT- 4: J0696 08/15/2016 URINALYSIS NONAUTO W/O SCOPE CPT-4: 12685 05/05/2016 ROCEPHIN, PER 250 MG CPT- 4: J0696 12/07/2015 TRIAMCINOLONE ACET INJ NOS CPT-4: J3301 11/24/2015 ROCEPHIN, PER 250 MG CPT- 4: J0696 11/24/2015 THER/PROPH/DIAG INJ SC/IM CPT-4: 71116 11/24/2015 THER/PROPH/DIAG INJ SC/IM CPT-4: 93356 08/27/2015 KETOROLAC TROMETHAMINE INJ CPT-4: J1885 08/27/2015 PROMETHAZINE HCL INJECTION CPT-4: J2550 08/27/2015 THER/PROPH/DIAG INJ SC/IM CPT-4: 06710 08/10/2015 TRIAMCINOLONE ACET INJ NOS CPT-4: J3301 08/10/2015 ROCEPHIN, PER 250 MG CPT- 4: J0696 08/10/2015 C LUISUN RTS (CULTURE OTHR SPECIMN AEROBIC) CPT-4: 07328 07/28/2015 THER/PROPH/DIAG INJ SC/IM CPT-4: 46371 03/19/2015 TRIAMCINOLONE ACET INJ NOS CPT-4: J3301 03/19/2015 ROCEPHIN, PER 250 MG CPT- 4: J0696 06/23/2014 TRIAMCINOLONE ACET INJ NOS CPT-4: J3301 06/23/2014 INJ TRIGGER POINT 1/2 MUSCL CPT-4: 20444 06/05/2014 URINALYSIS NONAUTO W/O SCOPE CPT-4: 15447 02/11/2014 URINALYSIS NONAUTO W/O SCOPE CPT-4: 03814 10/15/2013 ROCEPHIN, PER 250 MG CPT- 4: J0696 09/24/2013 THER/PROPH/DIAG INJ SC/IM CPT-4: 23746 09/19/2013 ROCEPHIN, PER 250 MG CPT- 4: J0696 09/19/2013 PRESCRIP TRANSMIT VIA ERX SY CPT-4: G8553 08/05/2013 ROCEPHIN, PER 250 MG CPT- 4: J0696 07/10/2013 THER/PROPH/DIAG INJ SC/IM CPT-4: 19565 07/10/2013 TRIAMCINOLONE ACET INJ NOS CPT-4: J3301 07/10/2013 PRESCRIP TRANSMIT VIA ERX SY CPT-4: G8553 07/10/2013 [id number] EST. PATIENT, LEVEL III CPT-4: 23780 06/03/2013 PRESCRIP TRANSMIT VIA ERX SY CPT-4: G8553 06/03/2013 PRESCRIP TRANSMIT VIA ERX SY CPT-4: G8553 05/07/2013 ROUTINE VENIPUNCTURE CPT- 4: 99014 04/30/2013 ROUTINE VENIPUNCTURE CPT- 4: 95846 11/29/2012 TRIAMCINOLONE ACET INJ NOS CPT-4: J3301 09/24/2012 THER/PROPH/DIAG INJ SC/IM CPT-4: 44258 09/24/2012 URINALYSIS NONAUTO W/O SCOPE CPT-4: 79096 09/24/2012 PRESCRIP TRANSMIT VIA ERX SY CPT-4: G8553 09/24/2012 PRESCRIP TRANSMIT VIA ERX SY CPT-4: G8553 09/10/2012 PRESCRIP TRANSMIT VIA ERX SY CPT-4: G8553 08/08/2012 ROUTINE VENIPUNCTURE CPT- 4: 55795 08/07/2012 ROUTINE VENIPUNCTURE CPT- 4: 87893 02/16/2012 URINALYSIS NONAUTO W/O SCOPE CPT-4: 17739 02/15/2012 ROCEPHIN, PER 250 MG CPT- 4: J0696 02/15/2012 PRESCRIP TRANSMIT VIA ERX SY CPT-4: G8553 02/15/2012 ROUTINE VENIPUNCTURE CPT- 4: 57305 11/08/2011 ROCEPHIN, PER 250 MG CPT- 4: J0696 07/14/2011 THER/PROPH/DIAG INJ SC/IM CPT-4: 81486 07/14/2011 Influenza Virus Vaccine, Split Virus, >3 Yrs, IM CPT-4: 79387 05/23/2011 IMMUNIZATION ADMIN CPT- 4: 97237 05/23/2011 THER/PROPH/DIAG INJ SC/IM CPT-4: 25395 05/03/2011 ROCEPHIN, PER 250 MG CPT- 4: J0696 05/03/2011 TRIAMCINOLONE ACET INJ NOS CPT-4: J3301 05/03/2011 Vital Signs Date Vital 11/27/2018 Blood Pressure 1: 144/82 Code: 8480-6 Heart Rate 1: 67 bpm SpO2: 93% 11/16/2018 Blood Pressure 1: 168/100 Code: 8480-6 Heart Rate 1: 74 bpm SpO2: 96% 11/13/2018 Blood Pressure 1: 184/98 Code: 8480-6 BMI: 32.1 Code: 02815-5 Heart Rate 1: 68 bpm Height: 4'11" SpO2: 96% Weight: 159 lbs 10/30/2018 Blood Pressure 1: 158/98 Code: 8480-6 BMI: 31.7 Code: 25903-1 Heart Rate 1: 80 bpm Height: 4'11" SpO2: 96% Weight: 157 lbs 10/08/2018 Blood Pressure 1: 140/80 Code: 8480-6 BMI: 32.1 Code: 26761-9 Heart Rate 1: 92 bpm Height: 4'11" SpO2: 103% Weight: 159 lbs 07/16/2018 Blood Pressure 1: 142/80 Code: 8480-6 BMI: 31.1 Code: 56107-5 Heart Rate 1: 78 bpm Height: 4'11" SpO2: 98% Weight: 154 lbs 07/10/2018 Blood Pressure 1: 156/82 Code: 8480-6 BMI: 31.1 Code: 22039-2 Heart Rate 1: 63 bpm Height: 4'11" SpO2: 99% Weight: 154 lbs 05/28/2018 Blood Pressure 1: 142/80 Code: 8480-6 Heart Rate 1: 82 bpm Height: SpO2: 97% Temperature: 35.9 (C) / 96.6 (F) Weight: 02/07/2018 Height: Weight: 01/19/2018 Blood Pressure 1: 128/76 Code: 8480-6 BMI: 31.2 Code: 12680-1 Heart Rate 1: 71 bpm Height: 4'11" SpO2: 96% Temperature: 36.5 (C) / 97.7 (F) Weight: 154 lbs 8 oz 11/23/2017 Blood Pressure 1: 146/80 Code: 8480-6 BMI: 31.7 Code: 69128-7 Heart Rate 1: 64 bpm Height: 4'11" SpO2: 97% Waist Measure (cm): 89 cm Weight: 157 lbs 09/12/2017 Blood Pressure 1: 140/86 Code: 8480-6 Heart Rate 1: 62 bpm SpO2: 96% Temperature: 36.6 (C) / 97.8 (F) Weight: 153 lbs 07/25/2017 Blood Pressure 1: 140/72 Code: 8480-6 BMI: 31.3 Code: 35915-0 Heart Rate 1: 76 bpm Height: 4'11" SpO2: 97% Temperature: 37.2 (C) / 99.0 (F) Weight: 155 lbs 06/27/2017 Blood Pressure 1: 144/84 Code: 8480-6 BMI: 31.1 Code: 29716-5 Heart Rate 1: 63 bpm Height: 4'11" SpO2: 99% Temperature: 36.4 (C) / 97.6 (F) Weight: 154 lbs 05/08/2017 Blood Pressure 1: 142/86 Code: 8480-6 BMI: 30.9 Code: 40316-1 Height: 4'11" Temperature: 36.3 (C) / 97.4 (F) Weight: 153 lbs 03/14/2017 Blood Pressure 1: 146/82 Code: 8480-6 BMI: 30.9 Code: 03174-8 Heart Rate 1: 64 bpm Height: 4'11" SpO2: 94% Weight: 153 lbs 02/20/2017 Blood Pressure 1: 142/80 Code: 8480-6 BMI: 30.9 Code: 48200-8 Heart Rate 1: 75 bpm Height: 4'11" SpO2: 97% Weight: 153 lbs 02/06/2017 Blood Pressure 1: 138/90 Code: 8480-6 BMI: 31.5 Code: 81933-5 Heart Rate 1: 61 bpm Height: 4'11" SpO2: 98% Weight: 156 lbs 12/05/2016 Blood Pressure 1: 122/72 Code: 8480-6 Heart Rate 1: 59 bpm Height: 4'11" SpO2: 98% Weight: 11/28/2016 Blood Pressure 1: 154/86 Code: 8480-6 BMI: 31.3 Code: 98637-1 Heart Rate 1: 64 bpm Height: 4'11" SpO2: 94% Temperature: 36.2 (C) / 97.2 (F) Weight: 155 lbs 11/07/2016 Blood Pressure 1: 128/64 Code: 8480-6 BMI: 31.5 Code: 95838-2 Heart Rate 1: 59 bpm Height: 4'11" SpO2: 97% Weight: 156 lbs 08/15/2016 Blood Pressure 1: 110/62 Code: 8480-6 BMI: 31.5 Code: 23699-0 Heart Rate 1: 76 bpm Height: 4'11" SpO2: 97% Weight: 156 lbs 06/07/2016 Blood Pressure 1: 120/80 Code: 8480-6 BMI: 32.9 Code: 33321-9 Heart Rate 1: 63 bpm Height: 4'11" SpO2: 93% Temperature: 36.5 (C) / 97.7 (F) Weight: 163 lbs 03/15/2016 Blood Pressure 1: 90/42 Code: 8480-6 Heart Rate 1: 65 bpm SpO2: 94% 03/14/2016 Blood Pressure 1: 188/110 Code: 8480-6 Heart Rate 1: 68 bpm SpO2: 96% 02/22/2016 Blood Pressure 1: 158/80 Code: 8480-6 BMI: 32.7 Code: 62404-5 Heart Rate 1: 71 bpm Height: 4'11" SpO2: 95% Weight: 162 lbs 12/07/2015 Blood Pressure 1: 140/88 Code: 8480-6 BMI: 32.9 Code: 24783-9 Heart Rate 1: 99 bpm Height: 4'11" SpO2: 94% Temperature: 35.9 (C) / 96.6 (F) Weight: 163 lbs 11/24/2015 Blood Pressure 1: 144/78 Code: 8480-6 BMI: 33.7 Code: 85681-8 Heart Rate 1: 60 bpm Height: 4'11" SpO2: 98% Temperature: 36.6 (C) / 97.9 (F) Weight: 167 lbs 08/27/2015 Blood Pressure 1: 164/82 Code: 8480-6 BMI: 32.3 Code: 87795-5 Heart Rate 1: 60 bpm Height: 4'11" SpO2: 93% Weight: 160 lbs 08/10/2015 Blood Pressure 1: 130/60 Code: 8480-6 BMI: 32.5 Code: 83212-2 Heart Rate 1: 64 bpm Height: 4'11" SpO2: 97% Weight: 161 lbs 07/28/2015 Blood Pressure 1: 124/68 Code: 8480-6 BMI: 32.5 Code: 76721-0 Heart Rate 1: 69 bpm Height: 4'11" SpO2: 97% Weight: 161 lbs 06/11/2015 Blood Pressure 1: 148/80 Code: 8480-6 BMI: 32.9 Code: 50519-7 Heart Rate 1: 70 bpm Height: 4'11" SpO2: 94% Weight: 163 lbs 03/19/2015 Blood Pressure 1: 150/102 Code: 8480-6 Blood Pressure 2: 152/92 Code: 8480-6 BMI: 32.5 Code: 63936-4 Heart Rate 1: 71 bpm Height: 4'11" SpO2: 96% Weight: 161 lbs 01/07/2015 Blood Pressure 1: 126/84 Code: 8480-6 Heart Rate 1: 80 bpm Height: 4'11" 09/23/2014 Blood Pressure 1: 112/72 Code: 8480-6 BMI: 33.9 Code: 54569-2 Heart Rate 1: 72 bpm Height: 4'11" Weight: 168 lbs 08/05/2014 Blood Pressure 1: 140/86 Code: 8480-6 BMI: 33.3 Code: 40502-1 Height: 4'11" Weight: 165 lbs 06/23/2014 Blood Pressure 1: 132/70 Code: 8480-6 BMI: 32.9 Code: 11327-7 Heart Rate 1: 58 bpm Height: 4'11" Temperature: 36.0 (C) / 96.8 (F) Weight: 163 lbs 06/05/2014 Blood Pressure 1: 121/85 Code: 8480-6 BMI: 34.3 Code: 46572-8 Height: 4'11" Weight: 170 lbs 04/03/2014 Blood Pressure 1: 128/80 Code: 8480-6 Heart Rate 1: 88 bpm Weight: 167 lbs 03/07/2014 Blood Pressure 1: 122/82 Code: 8480-6 BMI: 33.9 Code: 05048-8 Heart Rate 1: 68 bpm Height: 4'11" Weight: 168 lbs 11/21/2013 Blood Pressure 1: 100/58 Code: 8480-6 BMI: 33.7 Code: 49630-7 Heart Rate 1: 64 bpm Height: 4'11" Weight: 167 lbs 09/24/2013 Blood Pressure 1: 148/88 Code: 8480-6 Heart Rate 1: 68 bpm Weight: 09/19/2013 Blood Pressure 1: 120/80 Code: 8480-6 BMI: 33.9 Code: 75785-2 Heart Rate 1: 80 bpm Height: 4'11" Temperature: 36.9 (C) / 98.5 (F) Weight: 168 lbs 08/05/2013 Blood Pressure 1: 128/80 Code: 8480-6 BMI: 34.3 Code: 77779-5 Heart Rate 1: 64 bpm Height: 4'11" Temperature: 36.2 (C) / 97.2 (F) Weight: 170 lbs 07/10/2013 Blood Pressure 1: 120/84 Code: 8480-6 BMI: 36.0 Code: 49143-4 Heart Rate 1: 90 bpm Height: 4'11" SpO2: 97% Temperature: 36.8 (C) / 98.2 (F) Weight: 178 lbs 06/03/2013 Blood Pressure 1: 136/94 Code: 8480-6 BMI: 34.7 Code: 02726-9 Heart Rate 1: 68 bpm Height: 4'11" Temperature: 36.7 (C) / 98.0 (F) Weight: 172 lbs 05/13/2013 Blood Pressure 1: 132/90 Code: 8480-6 Heart Rate 1: 68 bpm 05/07/2013 Blood Pressure 1: 168/100 Code: 8480-6 BMI: 34.3 Code: 65592-2 Heart Rate 1: 76 bpm Height: 4'11" Weight: 170 lbs 12/03/2012 Blood Pressure 1: 142/78 Code: 8480-6 BMI: 33.5 Code: 94819-0 Heart Rate 1: 76 bpm Height: 4'11" Weight: 166 lbs 09/24/2012 Blood Pressure 1: 116/70 Code: 8480-6 Heart Rate 1: 68 bpm Respiratory Rate: 16 bpm Temperature: 36.9 (C) / 98.4 (F) Weight: 162 lbs 09/10/2012 Blood Pressure 1: 116/80 Code: 8480-6 BMI: 33.7 Code: 56866-7 Heart Rate 1: 76 bpm Height: 4'11" [...] 1: 149/85 Code: 8480-6 BMI: 32.9 Code: 64741-8 Heart Rate 1: 79 bpm Height: 4'11" Weight: 164 lbs 05/03/2011 Blood Pressure 1: 122/79 Code: 8480-6 BMI: 30.8 Code: 59161-5 Heart Rate 1: 72 bpm Height: 5'1" Weight: 163 lbs 04/25/2011 Blood Pressure 1: 137/84 Code: 8480-6 BMI: 31.0 Code: 12460-5 Heart Rate 1: 63 bpm Height: 5'1" [...] days ago 02/15/2012 while visiting mother in [place] had uti and was put on pyridum [...] surg in december. then took trip to [facility] to see mother and has had [...] Quality chronic 08/01/2011 states went shopping on [employer] over night without taking any of medications [...] data Encounters Encounter Performer Location Codes Date ([id number]) Miscellaneous no charge Diagnosis: Essential (primary) hypertension[ICD10: I10] Melba Goldman MD, [facility] CPT-4: 25722 11/16/2018 ([id number]) 61365 EST. PATIENT, LEVEL III Diagnosis: Essential (primary) hypertension[ICD10: I10] Shahida Goldman MD, [facility] CPT-4: 80921 11/13/2018 ([id number]) 24154 EST. PATIENT, LEVEL IV Diagnosis: Essential (primary) hypertension[ICD10: I10] Diagnosis: Mixed hyperlipidemia[ICD10: E78.2] Diagnosis: Hypothyroidism, unspecified[ICD10: E03.9] Shahida Goldman MD, [facility] CPT-4: 32402 10/30/2018 10900 EST. PATIENT, LEVEL III Diagnosis: Other mucopurulent conjunctivitis, bilateral[ICD10: H10.023] Diagnosis: Other allergic rhinitis[ICD10: J30.89] Shahida Goldman MD, [facility] CPT-4: 16418 10/08/2018 22854 EST. PATIENT, LEVEL III Diagnosis: Essential (primary) hypertension[ICD10: I10] Diagnosis: Generalized anxiety disorder[ICD10: F41.1] Isabelle Goldman MD, [facility] CPT-4: 31591 07/16/2018 ([id number]) 89108 EST. PATIENT, LEVEL III Diagnosis: Acute recurrent maxillary sinusitis[ICD10: J01.01] Diagnosis: Frequency of micturition[ICD10: R35.0] Diagnosis: Low back pain[ICD10: M54.5] Shahida Goldman MD, [facility] CPT-4: 98108 07/10/2018 ([id number]) 56648 EST. PATIENT, LEVEL III Diagnosis: Acute recurrent maxillary sinusitis[ICD10: J01.01] Shahida Goldman MD, [facility] CPT-4: 01127 05/28/2018 ([id number]) Miscellaneous no charge Diagnosis: Laceration without foreign body, left lower leg, subsequent encounter[ICD10: S81.812D] Diagnosis: Laceration without foreign body, right lower leg, subsequent encounter[ICD10: S81.811D] Isabelle Goldman MD, [facility] CPT-4: 45118 02/08/2018 97547 EST. PATIENT, LEVEL III Diagnosis: Cellulitis of left lower limb[ICD10: L03.116] Diagnosis: Cellulitis of right lower limb[ICD10: L03.115] Diagnosis: Laceration without foreign body, left lower leg, initial encounter[ICD10: S81.812A] Diagnosis: Laceration without foreign body, right lower leg, initial encounter[ICD10: S81.811A] Isabelle Goldman MD, [facility] CPT-4: 47948 02/07/2018 ([id number]) 62495 EST. PATIENT, LEVEL IV Diagnosis: Primary generalized (osteo)arthritis[ICD10: M15.0] Diagnosis: Acute recurrent maxillary sinusitis[ICD10: J01.01] Diagnosis: Low back pain[ICD10: M54.5] Diagnosis: Other allergic rhinitis[ICD10: J30.89] Diagnosis: Obstructive sleep apnea (adult) (pediatric)[ICD10: G47.33] Shahida Goldman MD, [facility] CPT-4: 77694 01/19/2018 03427 EST. PATIENT, LEVEL IV Diagnosis: Diarrhea, unspecified[ICD10: R19.7] Diagnosis: Generalized abdominal pain[ICD10: R10.84] Diagnosis: Other allergic rhinitis[ICD10: J30.89] Diagnosis: Other acute sinusitis[ICD10: J01.80] Isabelle Goldman MD, [facility] CPT- 4: 55948 09/12/2017 14528 EST. PATIENT, LEVEL III Diagnosis: Acute laryngopharyngitis[ICD10: J06.0] Diagnosis: Other allergic rhinitis[ICD10: J30.89] Diagnosis: Cough[ICD10: R05] Diagnosis: Wheezing[ICD10: R06.2] Isabelle Goldman MD, [facility] CPT-4: 76638 07/25/2017 ([id number]) 77027 EST. PATIENT, LEVEL IV Diagnosis: Acute recurrent maxillary sinusitis[ICD10: J01.01] Diagnosis: Cervicalgia[ICD10: M54.2] Diagnosis: Diarrhea, unspecified[ICD10: R19.7] Shahida Goldman MD, [facility] CPT-4: 27485 06/27/2017 ([id number]) 76649 EST. PATIENT, LEVEL III Diagnosis: Chronic maxillary sinusitis[ICD10: J32.0] Diagnosis: Gastro-esophageal reflux disease without esophagitis[ICD10: K21.9] Shahida Goldman MD, [facility] CPT-4: 15239 05/08/2017 ([id number]) 24457 EST. PATIENT, LEVEL III Diagnosis: Acute recurrent maxillary sinusitis[ICD10: J01.01] Shahida Goldman MD, [facility] CPT-4: 34344 03/14/2017 35385 EST. PATIENT, LEVEL IV Diagnosis: Epigastric pain[ICD10: R10.13] Diagnosis: Left upper quadrant pain[ICD10: R10.12] Diagnosis: Left lower quadrant pain[ICD10: R10.32] Isabelle Goldman MD, [facility] CPT-4: 00389 02/20/2017 ([id number]) 54959 EST. PATIENT, LEVEL IV Diagnosis: Generalized anxiety disorder[ICD10: F41.1] Diagnosis: Major depressive disorder, recurrent, moderate[ICD10: F33.1] Diagnosis: Left upper quadrant pain[ICD10: R10.12] Diagnosis: Epigastric pain[ICD10: R10.13] Diagnosis: Actinic keratosis[ICD10: L57.0] Melba Goldman MD, [facility] CPT-4: 39987 02/06/2017 ([id number]) 85775 EST. PATIENT, LEVEL III Diagnosis: Actinic keratosis[ICD10: L57.0] Diagnosis: Major depressive disorder, recurrent, moderate[ICD10: F33.1] Melba Goldman MD, [facility] CPT-4: 49318 12/05/2016 ([id number]) 74358 EST. PATIENT, LEVEL III Diagnosis: Acute recurrent maxillary sinusitis[ICD10: J01.01] Diagnosis: Dysuria[ICD10: R30.0] Shahida Goldman MD, [facility] CPT-4: 81587 11/28/2016 89463 EST. PATIENT, LEVEL IV Diagnosis: Other acute sinusitis[ICD10: J01.80] Diagnosis: Acute laryngopharyngitis[ICD10: J06.0] Diagnosis: Other allergic rhinitis[ICD10: J30.89] Isabelle Goldman MD, [facility] CPT- 4: 76321 08/15/2016 ([id number]) 54064 EST. PATIENT, LEVEL III Diagnosis: Acute recurrent maxillary sinusitis[ICD10: J01.01] Diagnosis: Low back pain[ICD10: M54.5] Shahida Goldman MD, [facility] CPT-4: 05277 06/07/2016 ([id number]) Miscellaneous no charge Diagnosis: Essential (primary) hypertension[ICD10: I10] Shahida Goldman MD, [facility] CPT-4: 73861 03/15/2016 27731 EST. PATIENT, LEVEL IV Diagnosis: Essential (primary) hypertension[ICD10: I10] Diagnosis: Headache[ICD10: R51] Diagnosis: Generalized anxiety disorder[ICD10: F41.1] Shahida Goldman MD, [facility] CPT-4: 56470 03/14/2016 00251 EST. PATIENT, LEVEL III Diagnosis: Laceration without foreign body, left lower leg, initial encounter[ICD10: S81.812A] Isabelle Goldman MD, [facility] CPT-4: 84824 02/22/2016 ([id number]) 34348 EST. PATIENT, LEVEL III Diagnosis: Acute recurrent maxillary sinusitis[ICD10: J01.01] Diagnosis: Cough[ICD10: R05] Diagnosis: Allergic rhinitis due to pollen[ICD10: J30.1] Shahida Goldman MD, [facility] CPT-4: 24607 12/07/2015 ([id number]) 45532 EST. PATIENT, LEVEL IV Diagnosis: Essential (primary) hypertension[ICD10: I10] Diagnosis: Acute recurrent maxillary sinusitis[ICD10: J01.01] Diagnosis: Generalized anxiety disorder[ICD10: F41.1] Diagnosis: Cervicalgia[ICD10: M54.2] Diagnosis: Generalized intra-abdominal and pelvic swelling, mass and lump[ICD10: R19.07] Melba Goldman MD, [facility] CPT-4: 82830 11/24/2015 75410 EST. PATIENT, LEVEL III Diagnosis: Other migraine, intractable, without status migrainosus[ICD10: G43.819] Isabelle Goldman MD, [facility] CPT-4: 93741 08/27/2015 32078 EST. PATIENT, LEVEL III Diagnosis: Acute recurrent maxillary sinusitis[ICD10: J01.01] Diagnosis: Candidal stomatitis[ICD10: B37.0] Diagnosis: Acute laryngopharyngitis[ICD10: J06.0] Isabelle Goldman MD, [facility] CPT- 4: 34247 08/10/2015 11006 EST. PATIENT, LEVEL III Diagnosis: Superficial foreign body of left hand, initial encounter[ICD10: S60.552A] Melba Goldman MD, [facility] CPT-4: 70221 07/28/2015 ([id number]) 79994 EST. PATIENT, LEVEL III Diagnosis: Essential (primary) hypertension[ICD10: I10] Diagnosis: Tinea cruris[ICD10: B35.6] Diagnosis: Abnormal levels of other serum enzymes[ICD10: R74.8] Shahida Goldman MD, [facility] CPT-4: 70084 06/11/2015 ([id number]) 81103 EST. PATIENT, LEVEL IV Diagnosis: ESSENTIAL HYPERTENSION[ICD9: 401.9] Diagnosis: Hypothyroid[ICD9: 244.9] Diagnosis: ALLERGIC RHINITIS[ICD9: 477.9] Diagnosis: Anxiety[ICD9: 300.00] Diagnosis: Sleep apnea[ICD9: 780.57] Shahida Goldman MD, [facility] CPT-4: 77812 03/19/2015 ([id number]) 67650 EST. PATIENT, LEVEL III Diagnosis: ACUTE SINUSITIS[ICD9: 461.9] Celi Frost Melba Datil MD, [facility] CPT-4: 02720 01/07/2015 ([id number]) 21260 EST. PATIENT, LEVEL III Diagnosis: Conjunctivitis[ICD9: 372.30] Shahida Goldman MD, [facility] CPT-4: 41507 09/23/2014 41653 EST. PATIENT, LEVEL II Diagnosis: Noninfected skin tear of leg[ICD9: 891.0] Shahida Goldman MD, [facility] CPT-4: 52860 08/05/2014 ([id number]) 66398 EST. PATIENT, LEVEL III Diagnosis: Chronic maxillary sinusitis[ICD9: 473.0] Shahida Goldman MD, [facility] CPT-4: 38008 06/23/2014 81258 EST. PATIENT, LEVEL II Diagnosis: Headache[ICD9: 784.0] Shahida Goldman MD, [facility] CPT-4: 04932 06/05/2014 ([id number]) 84918 EST. PATIENT, LEVEL III Diagnosis: Abrasion of right leg[ICD9: 916.0] Diagnosis: Headache[ICD9: 784.0] Diagnosis: ALLERGIC RHINITIS[ICD9: 477.9] Shahida Goldman MD, [facility] CPT-4: 39015 04/03/2014 76549 EST. PATIENT, LEVEL II Diagnosis: Tinea corporis[ICD9: 110.5] Diagnosis: Exposure to scabies[ICD9: V01.89] Shahida Goldman MD, [facility] CPT- 4: 82421 03/07/2014 ([id number]) 37121 EST. PATIENT, LEVEL III Diagnosis: ESSENTIAL HYPERTENSION[SNOMED: 38574519] Diagnosis: OSTEOARTH NOS-UNSPEC[ICD9: 715.90] Diagnosis: Lumbago[ICD9: 724.2] Diagnosis: Cervicalgia[ICD9: 723.1] Shahida Goldman MD, [facility] CPT-4: 30090 11/21/2013 ([id number]) 81257 EST. PATIENT, LEVEL III Diagnosis: DEPRESSIVE DISORDER NEC[ICD9: 311] Diagnosis: Paronychia[ICD9: 681.9] Melba Goldman MD, [facility] CPT-4: 46382 09/24/2013 ([id number]) 83537 EST. PATIENT, LEVEL III Diagnosis: Paronychia[ICD9: 681.9] Diagnosis: Cellulitis[ICD9: 682.9] Melba Goldman MD [facility] CPT-4: 20373 09/19/2013 ([id number]) 70240 EST. PATIENT, LEVEL III Diagnosis: Conjunctivitis[ICD9: 372.30] Diagnosis: Thrush[ICD9: 112.0] Shahida Goldman MD, [facility] CPT-4: 95396 08/05/2013 ([id number]) 56122 EST. PATIENT, LEVEL III Diagnosis: ACUTE MAXILLARY SINUSITIS[ICD9: 461.0] Diagnosis: COUGH[ICD9: 786.2] Diagnosis: Insomnia[ICD9: 780.52] Diagnosis: ESOPHAGEAL REFLUX[ICD9: 530.81] Melba Goldman MD [facility] CPT-4: 88424 07/10/2013 ([id number]) Miscellaneous no charge Diagnosis: ESSENTIAL HYPERTENSION[SNOMED: 19003345] Melba Goldman MD, [facility] CPT-4: 77728 05/13/2013 ([id number]) 65516 EST. PATIENT, LEVEL IV Diagnosis: ESSENTIAL HYPERTENSION[SNOMED: 95913293] Diagnosis: HYPOTHYROIDISM[ICD9: 244.9] Diagnosis: OSTEOARTH NOS-UNSPEC[ICD9: 715.90] Melba Goldman MD, [facility] CPT- 4: 49316 05/07/2013 ([id number]) 64585 EST. PATIENT, LEVEL IV Diagnosis: Osteoarthritis[ICD9: 715.90] Diagnosis: Knee pain, bilateral[ICD9: 719.46] Diagnosis: Hip pain[ICD9: 719.45] Melba Goldman MD, [facility] CPT-4: 31248 12/03/2012 ([id number]) 30143 EST. PATIENT, LEVEL III Diagnosis: Thrush[ICD9: 112.0] Melba Goldman MD, [facility] CPT-4: 70075 09/24/2012 ([id number]) 47022 EST. PATIENT, LEVEL IV Diagnosis: ESSENTIAL HYPERTENSION[SNOMED: 28880056] Diagnosis: Thrush[ICD9: 112.0] Diagnosis: Sleep apnea[ICD9: 780.57] Melba Goldman MD, [facility] CPT-4: 16567 09/10/2012 ([id number]) 84823 EST. PATIENT, LEVEL IV Diagnosis: Esophageal reflux[ICD9: 530.81] Diagnosis: Hypothyroid[ICD9: 244.9] Diagnosis: JOINT PAIN-MULT JOINTS[ICD9: 719.49] Diagnosis: ALLERGIC RHINITIS[ICD9: 477.9] Melba Goldman MD, [facility] CPT-4: 11486 08/08/2012 ([id number]) 33400 EST. PATIENT, LEVEL IV Diagnosis: Urinary frequency[ICD9: 788.41] Diagnosis: EDEMA[ICD9: 782.3] Diagnosis: HYPOTHYROIDISM[ICD9: 244.9] Diagnosis: Fatigue[ICD9: 780.79] Melba Goldman MD, [facility] CPT-4: 21648 02/15/2012 ([id number]) 43290 EST. PATIENT, LEVEL IV Diagnosis: Abdominal pain[ICD9: 789.00] Diagnosis: Fatigue[ICD9: 780.79] Diagnosis: Nausea[ICD9: 787.02] Melba Goldman MD, [facility] CPT-4: 41671 11/10/2011 [id number] EST. PATIENT, LEVEL IV Diagnosis: ESSENTIAL HYPERTENSION[SNOMED: 89658549] Diagnosis: DIARRHEA[ICD9: 787.91] Diagnosis: DEPRESSIVE DISORDER NEC[ICD9: 311] Diagnosis: Irritable bowel disease[ICD9: 564.1] Melba Goldman MD, [facility] CPT- 4: 46060 08/01/2011 [id number] EST. PATIENT, LEVEL III Diagnosis: ACUTE SINUSITIS[ICD9: 461.9] Diagnosis: Cough[ICD9: 786.2] Shahida Goldman MD, [facility] CPT-4: 12956 07/14/2011 [id number] EST. PATIENT, LEVEL IV Diagnosis: VACCIN FOR INFLUENZA[ICD9: V04.81] Diagnosis: ESSENTIAL HYPERTENSION[SNOMED: 99991393] Diagnosis: GENERALIZED ANXIETY DISEASE[ICD9: 300.02] Diagnosis: SLEEP DISTURBANCES[ICD9: 780.50] Shahida Goldman MD, [facility] CPT- 4: 27391 05/23/2011 28624 EST. PATIENT, LEVEL III Diagnosis: ACUTE SINUSITIS[ICD9: 461.9] Diagnosis: ALLERGIC RHINITIS[ICD9: 477.9] Diagnosis: Cough[ICD9: 786.2] [facility] CPT-4: 23550 05/03/2011 [id number] EST. PATIENT, LEVEL IV Diagnosis: ESSENTIAL HYPERTENSION[SNOMED: 78691714] Diagnosis: DEPRESSIVE DISORDER NEC[ICD9: 311] Diagnosis: Fatigue[ICD9: 780.79] Shahida Goldman MD, [facility] CPT-4: 47204 04/25/2011 Plan of Care Planned Activity Notes [...] acute concerns. 11/13/2018 Appointment: Shahida Manzo WPtel: [address] [place], [place] [phone] (15 min) Moderate 11/13/2018 Patient Education: Patient [...] call for acute concerns. Hyperlipidemia-check fasting labs Iovqgtvfqmopvb-tgisnze-hofbf labs 10/30/2018 Visit Plan: Hypertension - uncontrolled [...] call for acute concerns. Hyperlipidemia-check fasting labs Yknfmcnvukrxzr-wqfidxr-qvpmo labs 10/30/2018 Appointment: Shahida Manzo WPtel: [phone] [phone] (30 min) Complex 10/30/2018 Patient Education: Patient Medication Summary Completed 10/30/2018 Visit Plan: Conjunctivitis - rx for eye drops/lube sent electronically to the patient's pharmacy. The patient has been instructed to cleanse affected eye with warm washcloth, then place medication into affected eye four times daily. 10/08/2018 Appointment: Shahida Manzo WPtel: [facility]6 [phone] (30 min) Complex 10/08/2018 Patient Education: Patient Medication Summary Completed 10/08/2018 Appointment: [phone] (15 min) Moderate 07/30/2018 Visit Plan: [...] acute concerns. 07/16/2018 Appointment: Isabelle Orozco WPtel: [facility]5 [facility] (15 min) Moderate 07/16/2018 Patient Education: Patient [...] of over-medication. 07/10/2018 Appointment: Shahida Manzo WPtel: [facility]5 [phone] (15 min) Moderate 07/10/2018 Patient Education: Patient Medication Summary Completed 07/10/2018 Patient Education: Back Pain Completed 07/10/2018 Visit Plan: Sinusitis - Pt has acute infection - pain in face, maxillary region, Pt informed to use decongestant, RX given to patient, sinus rinses also recommended. Call if symptoms do not show improvement. 05/28/2018 Appointment: Shahida Manzo WPtel: [facility]5 [phone] (30 min) Complex 05/28/2018 Patient Education: Patient [...] acute concerns. 02/07/2018 Appointment: [phone] [place] (15 min) Moderate 02/07/2018 Patient Education: Patient [...] benefit from CPAP-improved sleep, less fatigue 01/19/2018 Visit Plan: Arthritis- occasionally uncontrolled symptoms- [...] is worsening or does not improve. 01/19/2018 Appointment: Shahida Manzo WPtel: [phone] [phone] [place] [address] (15 min) Moderate 01/19/2018 Patient Education: Patient [...] care surrogate. 11/23/2017 Appointment: Isabelle Orozco WPtel: [phone] [facility] [facility] - Annual Wellness Visit 11/23/2017 Patient [...] show improvement. 09/12/2017 Appointment: Isabelle Orozco WPtel: [facility]7 [facility] (15 min) Moderate 09/12/2017 Patient Education: Patient [...] allergy spray. 07/25/2017 Appointment: Isabelle Orozco WPtel[facility] (30 min) Complex 07/25/2017 Patient Education: [...] available 06/27/2017 Appointment: Shahida Manzo WPtel: [phone] [phone] (15 min) Moderate 06/27/2017 Patient Education: Patient [...] not improving. 05/08/2017 Appointment: Shahida Manzo WPtel: [facility]7 [phone] (15 min) Moderate 05/08/2017 Patient Education: Patient [...] show improvement. 03/14/2017 Appointment: Shahida Manzo WPtel: [facility]9 [phone] (15 min) Moderate 03/14/2017 Patient Education: Patient Medication Summary Completed 03/14/2017 Appointment: Shahida Manzo WPtel: [facility]2 [phone] [place] (15 min) Moderate 02/21/2017 Visit Plan: [...] improving. 02/20/2017 Appointment: Isabelle Orozco WPtel: [phone] [facility] (30 min) Complex 02/20/2017 Patient Education: Patient [...] use 02/06/2017 Appointment: Melba Goldman WPtel: [phone] [facility] (15 min) Moderate 02/06/2017 Patient Education: [...] this patient. 12/05/2016 Appointment: [phone] [facility] 12/05/2016 Patient Education: Patient Medication Summary Completed 12/05/2016 Visit Plan: Sinusitis - Pt has acute infection - pain in face, maxillary region, Pt informed to use decongestant, RX given to patient, sinus rinses also recommended. Call if symptoms do not show improvement. Dysuria- culture urine 11/28/2016 Appointment: Shah[facility]el[phone] (15 min) Moderate 11/28/2016 Patient Education: [...] control. 11/07/2016 Appointment: Isabel[facility]el[phone] [facility] - Annual Wellness Visit 11/07/2016 Patient [...] allergy spray. 08/15/2016 Appointment: Isabelle Orozco WPtel[facility] (15 min) Moderate 08/15/2016 Patient Education: [...] use. 06/07/2016 Appointment: Shah[facility]Ptel[phone] (10 min) Simple 06/07/2016 Patient Education: Patient [...] office today 03/14/2016 Appointment: Shah[facility]el[phone] (15 min) Moderate 03/14/2016 Patient Education: Patient Medication Summary Completed 03/14/2016 Care Plan: COMPLETE CBC AUTOMATED LOINC : 54965-9 Pending 03/14/2016 Visit Plan: Cellulitis - The patient was instructed in appropriate wound care. The patient was instructed to use the antibiotic ointment as per RX. The patient is to call for any change in symptoms, increase in size of the lesion, increase in pain. 02/22/2016 Appointment: Isabel[facility]rozco [facility]Ptel[phone] (15 min) Moderate 02/22/2016 Patient Education: [...] pt to follow up with specialist at [address] - she needs to pursue treatment. Anxietly - medications unchanged. colonoscopy with dr. dai 11/24/2015 Appointment: Melba Goldman WPtel: [facility] (30 min) [facility] 11/24/2015 Patient Education: Patient Medication Summary Completed 11/24/2015 Patient Education: Obesity Completed 11/24/2015 Patient Education: Hypertension Completed 11/24/2015 Patient Education: .Cervicalgia Neck Pain Completed 11/24/2015 Care Plan: Referral Order SNOMED-CT : [id number] Ordered 11/24/2015 Visit Plan: Acute Migraine - [...] to monitor 06/11/2015 Appointment: Shahida Manzo WPtel: [address] [place], [place] [address] (15 min) Moderate 06/11/2015 Patient Education: Patient [...] OFFICE Sleep apnea-patient needs new CPAP-will contact [facility] patient 03/19/2015 Visit Plan: Hypertension - [...] OFFICE Sleep apnea-patient needs new CPAP-will contact [facility] patient Pt reports that she uses [...] OFFICE Sleep apnea-patient needs new CPAP-will contact [facility] patient Pt reports that she uses [...] areas dry Exposure to scabies-RX sent to [facility]. 03/07/2014 Appointment: Melba Goldman [facility]el[phone] [facility] 03/07/2014 Patient Education: Patient Medication Summary Completed [...] change in blood pressure readings at home. Wsgtgkw-umltikwlvpz-ensgruxc duragesic patch-appt with Dr Ortiz for pain management 11/21/2013 Appointment: Shahida Manzo WPtel: [facility]5 [phone] Follow up 11/21/2013 Patient Education: Patient Medication Summary Completed 11/21/2013 Patient Education: Hypertension Completed 11/21/2013 Patient Education: .Cervicalgia Neck Pain Completed 11/21/2013 Appointment: Melba Goldman WPtel: [address] [place], [place] [phone] Other 11/19/2013 Appointment: Melba Goldman WPtel: [address] [place], [place] [phone] Follow up 11/06/2013 Appointment: Melba Goldman WPtel: [address] [place], [place] [phone] Lab Draw 10/15/2013 Patient Education: Patient Medication [...] AT BEDTIME 09/24/2013 Appointment: Shahida Manzo WPtel: [phone] Other 09/24/2013 Patient Education: Patient Medication Summary Completed 09/24/2013 Visit Plan: Paronychia/Cellulitis - continue with oral antibiotics as previously directed, return to clinic as previously directed, call for acute change in symptoms, worsening redness, warmth, discharge. 09/19/2013 Appointment: Melba Goldman WPtel: [facility]5 [facility] Other 09/19/2013 Patient Education: Patient Medication Summary Completed 09/19/2013 Visit Plan: Conjunctivitis - rx for eye drops/lube sent electronically to the patient's pharmacy. The patient has been instructed to cleanse affected eye with warm washcloth, then place medication into affected eye four times daily. Thrush-refill nystatin-call if symptoms do not resolve 08/05/2013 Appointment: Shahida Manzo WPtel: [address] [place] [id number] [facility] 08/05/2013 Patient Education: Patient Medication Summary Completed [...] improvement. 06/03/2013 Appointment: Mel[facility]el[phone] Follow up 06/03/2013 Patient Education: Patient Medication Summary Completed 06/03/2013 Patient Education: Hypertension Completed 06/03/2013 Appointment: Melba Goldman WPtel: [phone] [facility] [place] Nurse Visit 05/13/2013 Patient Education: [...] control. 05/07/2013 Appointment: [facility]el[phone] Follow up 05/07/2013 Patient Education: Patient Medication Summary Completed 05/07/2013 Patient Education: Hypertension Completed 05/07/2013 Patient Education: Patient Medication Summary Completed 04/30/2013 Patient Education: Hypertension Completed 04/30/2013 Visit Plan: Arthritis- occasionally uncontrolled symptoms- recommend pt to take antiinflammatory as directed for pain control. Use tylenol for break through pain symptoms. 12/03/2012 Appointment: Mel[facility]el[phone] Follow [facility] 12/03/2012 Patient Education: Patient Medication [...] not resolve 09/24/2012 Appointment: Shahida [facility]zo [facility]Ptel: [phone] [facility] [place] [address] 09/24/2012 Patient Education: Patient Medication Summary Completed [...] with diflucan 09/10/2012 Appointment: Mel[facility]el[phone] Follow [facility] 09/10/2012 Patient Education: Patient [...] pain symptoms. 08/08/2012 Appointment: Shahida Manzo WPtel: [address] [place], [place] [phone] Follow up 08/08/2012 Patient Education: Patient Medication Summary Completed 08/08/2012 Patient Education: Patient Medication Summary Completed 08/07/2012 Patient Education: Hypertension Completed 08/07/2012 Appointment: Melba Goldman WPtel: [address] [place], [place] [phone] Lab Draw 02/16/2012 Patient Education: Patient Medication [...] Needs labs. 02/15/2012 Appointment: Melba Goldman WPtel: [facility]3 [facility] [place] Other 02/15/2012 Patient Education: Patient Medication Summary Completed 02/15/2012 Visit Plan: Abdominal pain - ultrasound tomorrow AM nothing to eat before the ultrasound from 11pm tonight bland diet. Nausea - worse with fatty foods, recommended low fat/bland diet, call if symptoms worsening. 11/10/2011 Appointment: Melba Goldman WPtel: [facility]9 [facility] Other 11/10/2011 Patient Education: Patient Medication [...] stools. 08/01/2011 Appointment: Mel[facility]el: [phone] [place] Other 08/01/2011 Patient Education: Patient Medication Summary Completed 08/01/2011 Patient Education: High Blood Pressure: Essential Hypertension Completed 08/01/2011 Visit Plan: Sinusitis - Pt has acute infection - pain in face, maxillary region, Pt informed to use decongestant, RX given to patient, sinus rinses also recommended. Call if symptoms do not show improvement. Cough- tessalsathish zurita 07/14/2011 Appointment: Shah[facility]Ptel[phone] [place] Other 07/14/2011 Patient Education: Patient Medication [...] the office. 05/23/2011 Appointment: Shahida Manzo WPtel: [address] [place] [address] [place] Other 05/23/2011 Patient Education: Patient Medication [...] cough med 05/03/2011 Appointment: Shahida Manzo WPtel: [address] [place], [place] [phone] [place] Other 05/03/2011 Patient Education: Patient Medication [...] her symptoms. 04/25/2011 Appointment: Shahida Manzo WPtel: [address] [place] [address] Other 04/25/2011 Patient Education: Patient Medication Summary Completed 04/25/2011 Referral: Matthew Dai Referral Appointment Requested Referral: Matthew Dai Information faxed to Dr. Dai. Their office to book. Patient informed. Completed Instructions Comment . Skin tear of left and right [...] bleeding. Patient verbalized understandig of plan. . UTI - pt with positive urinalysis [...] part of her fatigue. Needs labs. . Hypertension - uncontrolled - the patient's [...] also provided for patient. Cough-refill cough med RESTART GENTAMICIN EYE DROPS DIRECTED Throw out your current mascara and eye makeup. Conjunctivitis - rx for eye drops/lube sent electronically to the patient's pharmacy. The patient has been instructed to cleanse affected eye with warm washcloth, then place medication into affected eye four times daily. Thrush-refill nystatin-call if symptoms do not resolve . Paronychia-continue abx as previously prescribed. ROCEPHIN [...] patient. ADD ABILIFY 2MG AT BEDTIME . Medicare Exam - today we discussed [...] [employer] paperwork for health care surrogate. . Sinusitis - Pt has acute infection [...] in the nasal steroid allergy spray. . Sinusitis - Pt has acute infection [...] call for acute concerns. Hyperlipidemia-check fasting labs Hyrijopgvjruts-qwkvkop-ampkf labs LOSARTAN 50MG DAILY MONITOR BLOOD PRESSURE [...] call for acute concerns. Hyperlipidemia-check fasting labs Dgzaoeynwnyygk-hollenm-lircv labs TAPER OFF OF CYMBALTA-TAKE EVERY OTHER [...] OFFICE Sleep apnea-patient needs new CPAP-will contact [facility] [place] [facility] patient TAPER OFF OF CYMBALTA-TAKE EVERY OTHER [...] OFFICE Sleep apnea-patient needs new CPAP-will contact [facility] [place] [facility] patient Pt reports that she uses [...] OFFICE Sleep apnea-patient needs new CPAP-will contact [facility] [place] [facility] patient Pt reports that she uses [...] office if the symptoms are not improving. increase bystolic to 15mg daily.. Hypertension - [...] medication into affected eye four times daily. TAKE A PROBIOTIC TWICE DAILY WHILE ON THE ANTIBIOTIC . Sinusitis - chronic - pain in face, maxillary region, Pt informed to use decongestant, RX given to patient, sinus rinses also recommended. Call if symptoms do not show improvement. . Medicare Exam - today we discussed [...] based on previous levels of control. . Paronychia/Cellulitis - continue with oral antibiotics as previously directed, return to clinic as previously directed, call for acute change in symptoms, worsening redness, warmth, discharge. . Conjunctivitis - rx for eye drops/lube [...] benefit from CPAP-improved sleep, less fatigue . Wound Instructions - Pt was instructed [...] has been appropriately prescribed for this patient. Gentamicin nasal spray to [facility] Increase prilosec to twice daily . [...] areas dry Exposure to scabies-RX sent to [facility]. rocephin/kenalog . Sinusitis - Pt has [...] change in blood pressure readings at home. Bcawndf-domxgqlvnxs-voxmzxyb duragesic patch-appt with Dr Ortiz for pain [...] pt is to call for acute concerns. Do not start the diflucan until you [...] make appt if symptoms do not resolve Rocephin and Kenalog . Arthritis- occasionally uncontrolled [...] pain is worsening or does not improve. . Trigger Points - Injected trigger points [...] if they worsen, or with other concerns. KENALOG PROBIOT[employer] BID . Sinusitis - Pt [...] us know when you are available . .Sinusitis - Pt has acute infection [...] do not show improvement. Dysuria-culture urine . Pt complains of a splinter in [...]
--- OUTSIDE RECORDS SUMMARY | 2019-03-08 12:47 | XMS REPORT | CCD ---
Author Author [facility] Address [address] [place] [address] Phone Care Team Providers Care Canvassing Manager Name Role Phone PP Unavailable CCM Unavailable Summary Purpose Interface Exchange Insurance Providers Payer name Policy type / Coverage type Covered green party ID Effective Begin Date Effective End Date [employer] Medicare Part B [id number] Unknown Family history Son Diagnosis Age At Onset Crohn's disease Unknown Brother Diagnosis Age At Onset Cardiovascular disease Unknown Mother Diagnosis Age At Onset Hypertension Unknown Father Diagnosis Age At Onset Cardiovascular disease Unknown Social History Social History Element Codes Description Effective Dates Marital status Unknown 04/22/2011 Number of children Unknown 3 1 son -Crohns 04/22/[address]: [id number] Nonsmoker 04/22/2011 Allergies, Adverse Reactions, Alerts Allergies, Adverse Reactions, Alerts data not found Past Medical History Illness Codes Condition Status Onset Date Resolved Date Acute recurrent maxillary sinusitis ICD-9: 461.0 ICD-10: J01.01 Active 06/06/2016 Unknown Actinic keratosis ICD-9: 702.0 ICD-10: L57.0 Active 12/05/2016 Unknown Epigastric pain ICD-9: 536.8 ICD-10: R10.13 Active 02/06/2017 Unknown Generalized anxiety disorder ICD-9: 300.02 ICD-10: F41.1 Active 03/13/2016 Unknown Left lower quadrant pain ICD-9: 789.04 ICD-10: R10.32 Active 02/20/2017 Unknown Left upper quadrant pain ICD-9: 789.02 ICD-10: R10.12 Active 02/06/2017 Unknown Major depressive disorder, recurrent, moderate ICD-9: 296.32 ICD-10: F33.1 Active 12/05/2016 Unknown Dysuria ICD-9: 788.1 ICD-10: R30.0 Active 05/04/2016 Unknown Encounter for general adult medical examination with abnormal findings ICD-9: V70.0 ICD-10: Z00.01 Active 11/07/2016 Unknown Hypothyroidism, unspecified ICD-9: 244.9 ICD-10: E03.9 Active 11/07/2016 Unknown Other acute sinusitis ICD- 9: 461.8 ICD-10: J01.80 Active 08/14/2016 Unknown Acute laryngopharyngitis ICD-9: 465.0 ICD-10: J06.0 Active 08/14/2016 Unknown Other allergic rhinitis ICD-9: 477.8 ICD-10: J30.89 Active 08/14/2016 Unknown Low back pain ICD-9: 724.2 ICD-10: M54.5 Active 06/06/2016 Unknown Essential (primary) hypertension ICD-9: 401.9 ICD-10: I10 Active 03/15/2016 Unknown Headache ICD-9: 784.0 ICD-10: R51 Active 03/13/2016 Unknown Laceration without foreign body, left lower leg, initial encounter ICD-9: 894.0 ICD-10: S81.812A Active 02/21/2016 Unknown Allergic rhinitis due to pollen ICD-9: 477.0 ICD-10: J30.1 Active 12/06/2015 Unknown Cough ICD-9: 786.2 ICD-10: R05 Active 12/06/2015 Unknown Cervicalgia ICD-9: 723.1 ICD-10: M54.2 Active 06/05/2014 Unknown Generalized intra-abdominal and pelvic swelling, mass [...] Problems Condition Codes Effective Dates Condition Status Acute recurrent maxillary sinusitis ICD-9: 461.0 ICD-10: J01.01 06/06/2016 Active Actinic keratosis ICD-9: 702.0 ICD-10: L57.0 12/05/2016 Active Epigastric pain ICD-9: 536.8 ICD-10: R10.13 02/06/2017 Active Generalized anxiety disorder ICD-9: 300.02 ICD-10: F41.1 03/13/2016 Active Left lower quadrant pain ICD-9: 789.04 ICD-10: R10.32 02/20/2017 Active Left upper quadrant pain ICD-9: 789.02 ICD-10: R10.12 02/06/2017 Active Major depressive disorder, recurrent, moderate ICD-9: 296.32 ICD-10: F33.1 12/05/2016 Active Dysuria ICD-9: 788.1 ICD-10: R30.0 05/04/2016 Active Encounter for general adult medical examination with abnormal findings ICD-9: V70.0 ICD-10: Z00.01 11/07/2016 Active Hypothyroidism, unspecified ICD-9: 244.9 ICD-10: E03.9 11/07/2016 Active Other acute sinusitis ICD- 9: 461.8 ICD-10: J01.80 08/14/2016 Active Acute laryngopharyngitis ICD-9: 465.0 ICD-10: J06.0 08/14/2016 Active Other allergic rhinitis ICD-9: 477.8 ICD-10: J30.89 08/14/2016 Active Low back pain ICD-9: 724.2 ICD-10: M54.5 06/06/2016 Active Essential (primary) hypertension ICD-9: 401.9 ICD-10: I10 03/15/2016 Active Headache ICD-9: 784.0 ICD-10: R51 03/13/2016 Active Laceration without foreign body, left lower leg, initial encounter ICD-9: 894.0 ICD-10: S81.812A 02/21/2016 Active Allergic rhinitis due to pollen ICD-9: 477.0 ICD-10: J30.1 12/06/2015 Active Cough ICD-9: 786.2 ICD-10: R05 12/06/2015 Active Cervicalgia ICD-9: 723.1 ICD-10: M54.2 06/05/2014 Active Generalized intra-abdominal and pelvic swelling, mass [...] Start Date Stop Date Status Fill Instructions Augmentin 875 mg-125 mg tablet RxNorm: 212582 1 Tablet(s) PO BID 03/14/2017 03/20/2017 Active Kenalog 40 mg/mL suspension for injection RxNorm: 3105161 1 Milliliter(s) Inj 03/14/2017 03/14/2017 Inactive Lexapro 20 mg tablet RxNorm: 673880 1.5 Tablet(s) PO daily 03/08/2017 07/05/2017 Active Lexapro 20 mg tablet RxNorm: 685550 1.5 Tablet(s) PO daily 03/08/2017 03/07/2017 Inactive alprazolam 0.25 mg tablet RxNorm: 576777 1 Tablet(s) PO daily as needed 02/23/2017 04/23/2017 Active (Response to an electronic controlled substance refill request - RxReferenceNumber: [id number]) Flagyl 500 mg tablet RxNorm: 416608 1 Tablet(s) PO TID 02/20/2017 03/01/2017 Inactive promethazine 25 mg tablet RxNorm: 589746 1 Tablet(s) PO TID as needed nausea 02/20/2017 03/01/2017 Inactive Cipro 500 mg tablet RxNorm: 191835 1 Tablet(s) PO BID 02/20/2017 03/01/2017 Inactive Flagyl 500 mg tablet RxNorm: 846872 1 Tablet(s) PO TID 02/09/2017 02/15/2017 Inactive Trintellix 10 mg tablet RxNorm: 6650680 1 Tablet(s) PO QAM 02/06/2017 03/07/2017 Inactive Efudex 5 % topical cream RxNorm: 199723 1 Application TOP BID use on skin spot on nose 02/06/2017 02/15/2017 Inactive Bystolic 10 mg tablet RxNorm: 014377 TAKE ONE TABLET BY MOUTH DAILY 02/03/2017 06/02/2017 Active Imitrex 50 mg tablet RxNorm: 676132 TAKE ONE TABLET BY MOUTH EVERY 8 HOURS NEEDED MAY REPEAT IN 1 HOUR OF INITIAL DOSE. DISCONTINUE FIORICET 12/22/2016 02/19/2017 Inactive Nexium 40 mg capsule,delayed release RxNorm: 714879 TAKE ONE CAPSULE BY MOUTH EVERY DAY 12/21/2016 09/16/2017 Active Lexapro 20 mg tablet RxNorm: 618010 Tablet(s) TAKE ONE TABLET BY MOUTH DAILY 12/05/2016 02/05/2017 Inactive hydrocodone 10 mg-acetaminophen 325 mg tablet RxNorm: 882376 Tablet(s) PO TAKE ONE TO TWO TABLETS BY MOUTH EVERY 6 HOURS NEEDED FOR PAIN 11/28/2016 No Stop Date Active (Appended: Controlled substance eRx refill - RxReferenceNumber: [id number]) Augmentin 875 mg-125 mg tablet RxNorm: 405056 1 Tablet(s) PO BID 11/28/2016 12/04/2016 Inactive ceftriaxone 500 mg solution for injection RxNorm: 1159167 1 Milliliter(s) Inj 11/28/2016 11/28/2016 Inactive prednisone 20 mg tablet RxNorm: 441874 2 Tablet(s) PO daily 11/28/2016 12/02/2016 Inactive Synthroid 100 mcg tablet RxNorm: 203142 1 Tablet(s) PO daily 11/21/2016 05/19/2017 Active Brand name only! trazodone 50 mg tablet RxNorm: 224901 TAKE 1 AND 1/2 TABLETS EVERY NIGHT AT BEDTIME , MAY INCREASE TO 2 TABLETS AT BEDTIME NEEDED 11/21/2016 02/16/2017 Inactive trazodone 50 mg tablet RxNorm: 267028 Tablet(s) TAKE 1 AND 1/2 TABLETS EVERY NIGHT AT BEDTIME , MAY INCREASE TO 2 TABLETS AT BEDTIME NEEDED 11/21/2016 11/20/2016 Inactive Synthroid 100 mcg tablet RxNorm: 974956 1 Tablet(s) PO daily TAKE ONE TABLET BY MOUTH DAILY 11/08/2016 11/20/2016 Inactive ceftriaxone 500 mg solution for injection RxNorm: 2040884 Inj 11/07/2016 11/07/2016 Inactive Kenalog 40 mg/mL suspension for injection RxNorm: 3069435 Milliliter(s) Inj 11/07/2016 11/07/2016 Inactive Xanax 0.25 mg tablet RxNorm: 999966 1 Tablet(s) PO daily as needed 10/31/2016 12/27/2016 Inactive alprazolam 0.25 mg tablet RxNorm: 135291 1 Tablet(s) PO daily as needed 10/21/2016 12/18/2016 Inactive (Response to an electronic controlled substance refill request - RxReferenceNumber: [id number]) hydrochlorothiazide 25 mg tablet RxNorm: 931598 TAKE ONE TABLET BY MOUTH DAILY 10/11/2016 04/08/2017 Active Xanax 0.25 mg tablet RxNorm: 007529 1 Tablet(s) PO daily as needed 08/23/2016 10/19/2016 Inactive Flonase Allergy Relief 50 mcg/actuation nasal spray,suspension RxNorm: 4329786 1 [place] NASAL daily 08/15/2016 No Stop Date Active amoxicillin 500 mg capsule RxNorm: 986961 1 Capsule(s) PO TID 08/15/2016 08/24/2016 Inactive Bystolic 10 mg tablet RxNorm: 890072 TAKE ONE TABLET BY MOUTH DAILY 08/01/2016 12/28/2016 Inactive trazodone 50 mg tablet RxNorm: 654298 TAKE 1 AND 1/2 TABLETS EVERY NIGHT AT BEDTIME , MAY INCREASE TO 2 TABLETS AT BEDTIME NEEDED 07/25/2016 11/11/2016 Inactive alprazolam 0.25 mg tablet RxNorm: 227739 1 Tablet(s) PO daily as needed 07/25/2016 08/22/2016 Inactive (Response to an electronic controlled substance refill request - RxReferenceNumber: [id number]) Imitrex 50 mg tablet RxNorm: 277756 1 Tablet(s) PO Q8 as needed may repeat x1 dose in 1 hour of inital dose. 07/13/2016 No Stop Date Active Lexapro 20 mg tablet RxNorm: 431898 TAKE 1/2 TABLET BY MOUTH DAILY FOR 10 DAYS, THEN TAKE ONE TABLET BY MOUTH DAILY 06/27/2016 11/23/2016 Inactive Synthroid 100 mcg tablet RxNorm: 560267 TAKE ONE TABLET BY MOUTH DAILY 06/20/2016 11/07/2016 Inactive Augmentin 500 mg-125 mg tablet RxNorm: 277216 1 Tablet(s) PO TID 06/07/2016 06/13/2016 Inactive hydrocodone 10 mg-acetaminophen 325 mg tablet RxNorm: 558414 Tablet(s) PO TAKE ONE TO TWO TABLETS BY MOUTH EVERY 6 HOURS NEEDED FOR PAIN 06/07/2016 11/27/2016 Inactive (Appended: Controlled substance eRx refill - RxReferenceNumber: [id number]) hydrochlorothiazide 25 mg tablet RxNorm: 227468 TAKE ONE TABLET BY MOUTH DAILY 03/14/2016 09/09/2016 Inactive Edarbi 40 mg tablet RxNorm: 2406015 1 Tablet(s) PO daily 03/14/2016 06/06/2016 Inactive trazodone 50 mg tablet RxNorm: 193948 Tablet(s) TAKE 1 AND 1/2 TABLET AT BEDTIME. MAY INCREASE TO 2 TABLETS IF NECESSARY 02/25/2016 07/05/2016 Inactive Imitrex 50 mg tablet RxNorm: 002027 1 Tablet(s) PO Q8 as needed may repeat x1 dose in 1 hour of inital dose. 02/25/2016 07/12/2016 Inactive dc fioricet Xanax 0.25 mg tablet RxNorm: 907465 1 Tablet(s) PO daily as needed 02/24/2016 07/21/2016 Inactive mupirocin 2 % topical ointment RxNorm: 506540 1 TOP BID 02/22/2016 No Stop Date Active Bactrim DS 800 mg-160 mg tablet RxNorm: 681970 1 Tablet(s) PO BID 02/22/2016 03/02/2016 Inactive Fioricet 50 mg-325 mg-40 mg tablet RxNorm: 398121 Tablet(s) TAKE ONE TABLET BY MOUTH EVERY 4 HOURS NEEDED FOR headache 02/12/2016 02/24/2016 Inactive (Response to an electronic controlled substance refill request - RxReferenceNumber: [id number]) Fioricet 50 mg-325 mg-40 mg tablet RxNorm: 675961 Tablet(s) TAKE ONE TABLET BY MOUTH EVERY 4 HOURS NEEDED FOR headache 02/12/2016 02/11/2016 Inactive (Response to an electronic controlled substance refill request - RxReferenceNumber: [id number]) Nexium 40 mg capsule,delayed release RxNorm: 388048 TAKE ONE CAPSULE BY MOUTH EVERY DAY 02/01/2016 10/27/2016 Inactive Bystolic 10 mg tablet RxNorm: 507761 Tablet(s) TAKE ONE TABLET BY MOUTH DAILY 01/06/2016 07/03/2016 Inactive Xanax 0.25 mg tablet RxNorm: 175112 1 Tablet(s) PO daily as needed 12/28/2015 02/23/2016 Inactive Levaquin 500 mg tablet RxNorm: 399606 1 Tablet(s) PO daily take a probiotic daily 12/14/2015 02/11/2016 Inactive Levaquin 500 mg tablet RxNorm: 728875 1 Tablet(s) PO daily take a probiotic daily 12/14/2015 12/13/2015 Inactive Phenergan with Codeine Syrup RxNorm: 5-10 Milliliter(s) PO Q6 PRN 12/07/2015 No Stop Date Active prednisone 20 mg tablet RxNorm: 276760 1 Tablet(s) PO BID 12/07/2015 12/13/2015 Inactive Augmentin 875 mg-125 mg tablet RxNorm: 164953 1 Tablet(s) PO BID 12/07/2015 12/13/2015 Inactive ceftriaxone 500 mg solution for injection RxNorm: 3860632 Inj 12/07/2015 12/07/2015 Inactive alprazolam 0.25 mg tablet RxNorm: 217870 1 Tablet(s) PO daily as needed 11/27/2015 12/25/2015 Inactive (Response to an electronic controlled substance refill request - RxReferenceNumber: [id number]) trazodone 50 mg tablet RxNorm: 057855 TAKE 1 AND 1/2 TABLET AT BEDTIME FOR 2 WEEKS, MAY INCREASE TO 2 TABLETS IF NECESSARY AFTER THAT 11/26/2015 02/24/2016 Inactive ceftriaxone 500 mg solution for injection RxNorm: 9412147 Milliliter(s) Inj 11/24/2015 11/24/2015 Inactive prednisone 10 mg tablet RxNorm: 380442 3 Tablet(s) PO daily 11/24/2015 11/28/2015 Inactive cefdinir 300 mg capsule RxNorm: 384652 1 Capsule(s) PO BID 11/24/2015 11/30/2015 Inactive Kenalog 40 mg/mL suspension for injection RxNorm: 1027482 1 Milliliter(s) Inj 11/24/2015 11/24/2015 Inactive Lexapro 20 mg tablet RxNorm: 964231 TAKE 1/2 TABLET BY MOUTH DAILY FOR 10 DAYS, THEN TAKE ONE TABLET BY MOUTH DAILY 11/23/2015 05/20/2016 Inactive Norvasc 10 mg tablet RxNorm: 184123 Tablet(s) PO TAKE ONE TABLET BY MOUTH EVERY DAY 10/26/2015 02/22/2016 Inactive Lipitor 10 mg tablet RxNorm: 015743 Tablet(s) TAKE ONE TABLET BY MOUTH EVERY DAY 10/26/2015 11/06/2016 Inactive hydrochlorothiazide 25 mg tablet RxNorm: 539026 TAKE ONE TABLET BY MOUTH DAILY 10/20/2015 01/17/2016 Inactive alprazolam 0.25 mg tablet RxNorm: 184084 1 Tablet(s) PO daily as needed 08/27/2015 11/22/2015 Inactive (Response to an electronic controlled substance refill request - RxReferenceNumber: [id number]) promethazine 25 mg/mL injection solution RxNorm: 122132 Milliliter(s) Inj 08/27/2015 08/27/2015 Inactive ketorolac 60 mg/2 mL intramuscular solution RxNorm: 009610 Milliliter(s) IM 08/27/2015 08/27/2015 Inactive Lexapro 20 mg tablet RxNorm: 865142 TAKE 1/2 TABLET BY MOUTH DAILY FOR 10 DAYS, THEN TAKE ONE TABLET BY MOUTH DAILY 08/13/2015 11/10/2015 Inactive Flonase 50 mcg/actuation nasal spray,suspension RxNorm: 849240 PLACE 1 SPRAY IN EACH NOSTRIL DAILY 08/13/2015 02/08/2016 Inactive Augmentin 500 mg-125 mg tablet RxNorm: 677026 1 Tablet(s) PO TID 08/10/2015 08/16/2015 Inactive Kenalog 40 mg/mL suspension for injection RxNorm: 6187657 Milliliter(s) Inj 08/10/2015 08/10/2015 Inactive ceftriaxone 500 mg solution for injection RxNorm: 0230207 Inj 08/10/2015 08/10/2015 Inactive nystatin 100,000 unit/mL oral suspension RxNorm: 082541 4 Milliliter(s) PO QID 08/10/2015 08/16/2015 Inactive trazodone 50 mg tablet RxNorm: 601195 TAKE 1 AND 1/2 TABLET AT BEDTIME FOR 2 WEEKS, MAY INCREASE TO 2 TABLETS IF NECESSARY AFTER THAT 07/31/2015 11/25/2015 Inactive ceftriaxone 500 mg solution for injection RxNorm: 3383518 1 Milliliter(s) Inj 07/28/2015 07/28/2015 Inactive Bactrim DS 800 mg-160 mg tablet RxNorm: 741309 1 Tablet(s) PO BID 07/28/2015 08/06/2015 Inactive Bactroban 2 % topical ointment RxNorm: 050193 1 Application TOP BID 07/28/2015 08/06/2015 Inactive Diflucan 150 mg tablet RxNorm: 665634 1 Tablet(s) PO daily 06/11/2015 06/17/2015 Inactive clotrimazole 1 % topical cream RxNorm: 662867 1 Application TOP BID 06/11/2015 07/10/2015 Inactive Bystolic 10 mg tablet RxNorm: 499013 TAKE ONE TABLET BY MOUTH DAILY 06/08/2015 12/04/2015 Inactive alprazolam 0.25 mg tablet RxNorm: 119061 1 Tablet(s) PO daily as needed 06/01/2015 08/25/2015 Inactive (Response to an electronic controlled substance refill request - RxReferenceNumber: [id number]) Fioricet 50 mg-325 mg-40 mg tablet RxNorm: 379483 Tablet(s) TAKE ONE TABLET BY MOUTH EVERY 4 HOURS NEEDED FOR headache 05/28/2015 06/08/2015 Inactive (Response to an electronic controlled substance refill request - RxReferenceNumber: [id number]) trazodone 50 mg tablet RxNorm: 062040 TAKE 1 AND 1/2 TABLET AT BEDTIME FOR 2 WEEKS, MAY INCREASE TO 2 TABLETS IF NECESSARY AFTER THAT 05/25/2015 08/22/2015 Inactive trazodone 50 mg tablet RxNorm: 585511 TAKE 1 AND 1/2 TABLET AT BEDTIME FOR 2 WEEKS, MAY INCREASE TO 2 TABLETS IF NECESSARY AFTER THAT 05/25/2015 05/24/2015 Inactive Synthroid 100 mcg tablet RxNorm: 622984 TAKE ONE TABLET BY MOUTH DAILY 04/23/2015 01/17/2016 Inactive Lipitor 10 mg tablet RxNorm: 325464 TAKE ONE TABLET BY MOUTH EVERY DAY 04/23/2015 10/25/2015 Inactive Kenalog 40 mg/mL suspension for injection RxNorm: 8779982 Milliliter(s) Inj 03/19/2015 03/19/2015 Inactive Lexapro 20 mg tablet RxNorm: 826234 1 Tablet(s) PO daily 03/19/2015 07/16/2015 Inactive 1/2 tab daily x 10 days then 1 tab daily hydrocodone 10 mg-acetaminophen 325 mg tablet RxNorm: 405440 Tablet(s) PO TAKE ONE TO TWO TABLETS BY MOUTH EVERY 6 HOURS NEEDED FOR PAIN 03/19/2015 06/06/2016 Inactive (Appended: Controlled substance eRx refill - RxReferenceNumber: [id number]) Carafate 1 gram tablet RxNorm: 630480 1 Tablet(s) PO AC & HS 03/19/2015 06/16/2015 Inactive dissolve in water and take as a slurry hydrochlorothiazide 25 mg tablet RxNorm: 144040 1 Tablet(s) PO daily 03/12/2015 09/07/2015 Inactive Nexium 40 mg capsule,delayed release RxNorm: 378446 TAKE ONE CAPSULE BY MOUTH EVERY DAY 02/26/2015 12/22/2015 Inactive Cymbalta 60 mg capsule,delayed release RxNorm: 482872 TAKE ONE CAPSULE BY MOUTH TWICE A DAY 02/23/2015 03/18/2015 Inactive alprazolam 0.25 mg tablet RxNorm: 099058 1 Tablet(s) PO daily as needed 02/11/2015 05/10/2015 Inactive (Response to an electronic controlled substance refill request - RxReferenceNumber: [id number]) trazodone 50 mg tablet RxNorm: 919676 TAKE 1 AND 1/2 TABLET AT BEDTIME FOR 2 WEEKS, MAY INCREASE TO 2 TABLETS IF NECESSARY AFTER THAT 01/27/2015 05/24/2015 Inactive Augmentin 500 mg-125 mg tablet RxNorm: 297170 1 Tablet(s) PO TID 01/07/2015 01/13/2015 Inactive gentamicin 0.3 % eye drops RxNorm: 797346 3 Drop(s) OPH QID 01/07/2015 01/13/2015 Inactive [AttnRPh: Saving apply/adjudicate RxGRP:[id number] RxBIN:[id number] RxPCN: ID#:[id number]] scopolamine 1.5 mg transdermal 72 hour patch RxNorm: 690906 1 Patch TD q72 hours 01/07/2015 11/23/2015 Inactive Synthroid 100 mcg tablet RxNorm: 337917 TAKE ONE TABLET BY MOUTH ONCE A DAY 01/06/2015 04/22/2015 Inactive nystatin 100,000 unit/gram topical powder RxNorm: 406410 APPLY TOPICALLY TWO TIMES A DAY 12/18/2014 03/17/2015 Inactive alprazolam 0.25 mg tablet RxNorm: 221553 TAKE ONE TABLET BY MOUTH DAILY NEEDED 10/30/2014 11/28/2014 Inactive (Response to an electronic controlled substance refill request - RxReferenceNumber: [id number]) alprazolam 0.25 mg tablet RxNorm: 728663 Tablet(s) TAKE ONE TABLET BY MOUTH DAILY 10/30/2014 10/29/2014 Inactive (Response to an electronic controlled substance refill request - RxReferenceNumber: [id number]) Lipitor 10 mg tablet RxNorm: 494600 TAKE ONE TABLET BY MOUTH EVERY DAY 10/30/2014 02/26/2015 Inactive alprazolam 0.25 mg tablet RxNorm: 845400 TAKE ONE TABLET BY MOUTH DAILY 10/07/2014 10/29/2014 Inactive (Response to an electronic controlled substance refill request - RxReferenceNumber: [id number]) alprazolam 0.25 mg tablet RxNorm: 182605 TAKE ONE TABLET BY MOUTH DAILY 10/06/2014 10/07/2014 Inactive (Response to an electronic controlled substance refill request - RxReferenceNumber: [id number]) alprazolam 0.25 mg tablet RxNorm: 171940 Tablet(s) TAKE ONE TABLET BY MOUTH EVERY DAY NEEDED 09/30/2014 10/06/2014 Inactive (Response to an electronic controlled substance refill request - RxReferenceNumber: [id number]) Fioricet 50 mg-325 mg-40 mg tablet RxNorm: 625804 Tablet(s) TAKE ONE TABLET BY MOUTH EVERY 4 HOURS NEEDED FOR headache 09/29/2014 10/12/2014 Inactive (Response to an electronic controlled substance refill request - RxReferenceNumber: [id number]) Bystolic 10 mg tablet RxNorm: 906634 1 Tablet(s) PO daily TAKE ONE TABLET BY MOUTH EVERY DAY 09/29/2014 04/26/2015 Inactive Bystolic 5 mg tablet RxNorm: 305666 TAKE 1 AND 1/2 TABLETS ONCE DAILY 09/24/2014 09/23/2014 Inactive Bystolic 5 mg tablet RxNorm: 099343 Tablet(s) TAKE 1 AND 1/2 TABLETS ONCE DAILY 09/24/2014 09/18/2015 Inactive gentamicin 0.3 % eye drops RxNorm: 732459 3 Drop(s) OPH QID 09/23/2014 09/29/2014 Inactive trazodone 50 mg tablet RxNorm: 312036 TAKE 1 AND 1/2 TABLET AT BEDTIME FOR 2 WEEKS, MAY INCREASE TO 2 TABLETS IF NECESSARY AFTER THAT 09/22/2014 01/26/2015 Inactive Fioricet 50 mg-325 mg-40 mg tablet RxNorm: 622080 TAKE ONE TABLET BY MOUTH EVERY 4 HOURS NEEDED FOR PAIN 09/17/2014 09/28/2014 Inactive (Response to an electronic controlled substance refill request - RxReferenceNumber: [id number]) Duragesic 50 mcg/hr transdermal patch RxNorm: 742084 1 TD q72 hours 08/07/2014 01/06/2015 Inactive [SAVINGS FOR UNINSURED PATIENTS -- BIN:[id number], PCN: ASPROD1, Group: [id number], ID# [id number], Process claim through [employer], for questions: . THIS IS NOT INSURANCE.] alprazolam 0.25 mg tablet RxNorm: 208476 TAKE ONE TABLET BY MOUTH EVERY DAY NEEDED 07/31/2014 08/29/2014 Inactive (Response to an electronic controlled substance refill request - RxReferenceNumber: [id number]) alprazolam 0.25 mg tablet RxNorm: 699431 1 Tablet(s) PO daily as needed TAKE ONE TABLET BY MOUTH EVERY DAY NEEDED 07/30/2014 08/01/2014 Inactive (Response to an electronic controlled substance refill request - RxReferenceNumber: [id number]) Diflucan 150 mg tablet RxNorm: 139780 1 Tablet(s) PO daily 06/25/2014 07/01/2014 Inactive [SAVINGS FOR UNINSURED PATIENTS -- BIN:[id number], PCN: ASPROD1, Group: [id number], ID# [id number], Process claim through [employer], for questions: . THIS IS NOT INSURANCE.] Kenalog 40 mg/mL suspension for injection RxNorm: 0890589 Milliliter(s) Inj 06/23/2014 06/23/2014 Inactive [SAVINGS FOR UNINSURED PATIENTS -- BIN:199945, PCN: ASPROD1, Group: [id number], ID# [id number], Process claim through [employer], for questions: . THIS IS NOT INSURANCE.] ceftriaxone 500 mg solution for injection RxNorm: 038533 Inj 06/23/2014 06/23/2014 Inactive [SAVINGS FOR UNINSURED PATIENTS -- BIN:[id number], PCN: ASPROD1, Group: [id number], ID# [id number], Process claim through [employer], for questions: . THIS IS NOT INSURANCE.] Levaquin 500 mg tablet RxNorm: 712524 1 Tablet(s) PO daily 06/23/2014 07/13/2014 Inactive [SAVINGS FOR UNINSURED PATIENTS -- BIN:609092, PCN: ASPROD1, Group: [id number], ID# [id number], Process claim through [employer], for questions: . THIS IS NOT INSURANCE.] Duragesic 50 mcg/hr transdermal patch RxNorm: 546569 1 TD q72 hours 06/05/2014 08/06/2014 Inactive [SAVINGS FOR UNINSURED PATIENTS -- BIN:685093, PCN: ASPROD1, Group: [id number], ID# [id number], Process claim through [employer], for questions: . THIS IS NOT INSURANCE.] alprazolam 0.25 mg tablet RxNorm: 903558 1 Tablet(s) PO daily as needed TAKE ONE TABLET BY MOUTH EVERY DAY NEEDED 06/02/2014 07/29/2014 Inactive (Response to an electronic controlled substance refill request - RxReferenceNumber: [id number]) nystatin 100,000 unit/gram topical powder RxNorm: 808077 APPLY TO AFFECTED AREA(S) TWO TIMES A DAY 05/01/2014 06/14/2014 Inactive hydrochlorothiazide 25 mg tablet RxNorm: 433059 TAKE ONE TABLET BY MOUTH EVERY DAY MUST CALL MD FOR APPOINTMENT 04/24/2014 10/20/2014 Inactive alprazolam 0.25 mg tablet RxNorm: 059944 Tablet(s) TAKE ONE TABLET BY MOUTH EVERY DAY NEEDED 04/16/2014 06/02/2014 Inactive (Response to an electronic controlled substance refill request - RxReferenceNumber: [id number]) alprazolam 0.25 mg tablet RxNorm: 760946 TAKE ONE TABLET BY MOUTH EVERY DAY NEEDED 04/16/2014 05/15/2014 Inactive (Response to an electronic controlled substance refill request - RxReferenceNumber: [id number]) alprazolam 0.25 mg tablet RxNorm: 660687 TAKE ONE TABLET BY MOUTH EVERY DAY NEEDED 04/16/2014 05/15/2014 Inactive (Response to an electronic controlled substance refill request - RxReferenceNumber: [id number]) alprazolam 0.25 mg tablet RxNorm: 681707 TAKE ONE TABLET BY MOUTH EVERY DAY NEEDED 04/14/2014 04/16/2014 Inactive (Response to an electronic controlled substance refill request - RxReferenceNumber: [id number]) Lipitor 10 mg tablet RxNorm: 194723 TAKE ONE TABLET BY MOUTH EVERY DAY 04/14/2014 09/10/2014 Inactive alprazolam 0.25 mg tablet RxNorm: 459997 TAKE ONE TABLET BY MOUTH EVERY DAY NEEDED 04/14/2014 04/14/2014 Inactive (Response to an electronic controlled substance refill request - RxReferenceNumber: [id number]) alprazolam 0.25 mg tablet RxNorm: 286937 TAKE ONE TABLET BY MOUTH EVERY DAY NEEDED 04/14/2014 04/15/2014 Inactive (Response to an electronic controlled substance refill request - RxReferenceNumber: [id number]) alprazolam 0.25 mg tablet RxNorm: 279021 TAKE ONE TABLET BY MOUTH EVERY DAY NEEDED 04/14/2014 04/14/2014 Inactive (Response to an electronic controlled substance refill request - RxReferenceNumber: [id number]) nystatin 100,000 unit/gram topical powder RxNorm: 779346 1 Application TOP BID 04/03/2014 07/01/2014 Inactive [SAVINGS FOR UNINSURED PATIENTS -- BIN:002391, PCN: ASPROD1, Group: [id number], ID# [id number], Process claim through [employer], for questions: . THIS IS NOT INSURANCE.] Keflex 500 mg capsule RxNorm: 688658 1 Capsule(s) PO QID 04/03/2014 04/09/2014 Inactive [SAVINGS FOR UNINSURED PATIENTS -- BIN:[id number], PCN: ASPROD1, Group: [id number], ID# [id number], Process claim through MedImpact, for questions: . THIS IS NOT INSURANCE.] Synthroid 100 mcg tablet RxNorm: 894441 1 Tablet(s) PO daily TAKE ONE TABLET BY MOUTH EVERY DAY 04/01/2014 01/05/2015 Inactive [SAVINGS FOR UNINSURED PATIENTS -- BIN:[id number], PCN: ASPROD1, Group: [id number], ID# [id number], Process claim through [employer]Imp[employer], for questions: . THIS IS NOT INSURANCE.] Duragesic 50 mcg/hr transdermal patch RxNorm: 621404 1 TD q72 hours 03/24/2014 06/04/2014 Inactive [SAVINGS FOR UNINSURED PATIENTS -- BIN:[id number], PCN: ASPROD1, Group: [id number], ID# [id number], Process claim through [employer]Imp[employer], for questions: . THIS IS NOT INSURANCE.] trazodone 50 mg tablet RxNorm: 827801 TAKE 1 AND 1/2 TABLET AT BEDTIME FOR 2 WEEKS, MAY INCREASE TO 2 TABLETS IF NECESSARY AFTER THAT 03/18/2014 09/13/2014 Inactive nystatin 100,000 unit/gram topical powder RxNorm: 198452 1 Application TOP BID 03/07/2014 03/16/2014 Inactive [SAVINGS FOR UNINSURED PATIENTS -- BIN:[id number], PCN: ASPROD1, Group: [id number], ID# [id number], Process claim through MedImp[employer], for questions: . THIS IS NOT INSURANCE.] permethrin 5 % topical cream RxNorm: 887982 1 Application TOP daily 03/07/2014 11/23/2015 Inactive apply head to toe-leave on overnight and wash off in the a.m. May repeat x 1 if needed Diflucan 150 mg tablet RxNorm: 469171 1 Tablet(s) PO daily 03/07/2014 03/09/2014 Inactive [SAVINGS FOR UNINSURED PATIENTS -- BIN:948369, PCN: ASPROD1, Group: [id number], ID# [id number], Process claim through [employer]Imp[employer], for questions: . THIS IS NOT INSURANCE.] hydrochlorothiazide 25 mg tablet RxNorm: 678243 TAKE ONE TABLET BY MOUTH EVERY DAY MUST CALL MD FOR APPOINTMENT 03/06/2014 04/23/2014 Inactive Zithromax Z-Sergio 250 mg tablet RxNorm: 967402 Tablet(s) PO as directed 03/04/2014 11/23/2015 Inactive [SAVINGS FOR UNINSURED PATIENTS -- BIN:474619, PCN: ASPROD1, Group: [id number], ID# [id number], Process claim through [employer]Imp[employer], for questions: . THIS IS NOT INSURANCE.] Flonase 50 mcg/actuation nasal spray,suspension RxNorm: 104874 1 [place] NASAL daily 03/04/2014 07/01/2014 Inactive [SAVINGS FOR UNINSURED PATIENTS -- BIN:672942, PCN: ASPROD1, Group: [id number], ID# [id number], Process claim through [employer]Imp[employer], for questions: . THIS IS NOT INSURANCE.] alprazolam 0.25 mg tablet RxNorm: 976868 1 Tablet(s) PO PRN TAKE ONE TABLET BY MOUTH EVERY DAY NEEDED 02/25/2014 04/14/2014 Inactive (Appended: Controlled substance eRx refill - RxReferenceNumber: [id number]) alprazolam 0.25 mg tablet RxNorm: 933328 TAKE ONE TABLET BY MOUTH EVERY DAY NEEDED 02/21/2014 03/22/2014 Inactive (Response to an electronic controlled substance refill request - RxReferenceNumber: [id number]) alprazolam 0.25 mg tablet RxNorm: 746481 TAKE ONE TABLET BY MOUTH EVERY DAY NEEDED 02/21/2014 03/22/2014 Inactive (Response to an electronic controlled substance refill request - RxReferenceNumber: [id number]) alprazolam 0.25 mg tablet RxNorm: 939287 TAKE ONE TABLET BY MOUTH EVERY DAY NEEDED 02/18/2014 03/19/2014 Inactive (Response to an electronic controlled substance refill request - RxReferenceNumber: [id number]) Cymbalta 60 mg capsule,delayed release RxNorm: 236284 TAKE ONE CAPSULE BY MOUTH TWICE A DAY 02/18/2014 01/13/2015 Inactive Nexium 40 mg capsule,delayed release RxNorm: 164935 TAKE ONE CAPSULE BY MOUTH EVERY DAY 02/18/2014 01/13/2015 Inactive Bactrim DS 800 mg-160 mg tablet RxNorm: 746241 1 Tablet(s) PO BID 02/13/2014 02/19/2014 Inactive probiotic while one antibiotic Bactrim DS 800 mg-160 mg tablet RxNorm: 318922 1 Tablet(s) PO BID 02/13/2014 02/12/2014 Inactive hydrocodone 10 mg-acetaminophen 325 mg tablet RxNorm: 102279 Tablet(s) PO TAKE ONE TO TWO TABLETS BY MOUTH EVERY 6 HOURS NEEDED FOR PAIN 02/06/2014 03/18/2015 Inactive (Appended: Controlled substance eRx refill - RxReferenceNumber: [id number]) Abilify 2 mg tablet RxNorm: 406051 Tablet(s) PO TAKE ONE TABLET BY MOUTH EVERY NIGHT AT BEDTIME 02/03/2014 03/19/2015 Inactive Duragesic 50 mcg/hr transdermal patch RxNorm: 152413 1 TD q72 hours 01/14/2014 03/23/2014 Inactive alprazolam 0.25 mg tablet RxNorm: 181760 1 Tablet(s) PO QDAY PRN 01/14/2014 02/12/2014 Inactive alprazolam 0.25 mg tablet RxNorm: 483833 Tablet(s) PO TAKE ONE TABLET BY MOUTH EVERY DAY NEEDED 01/14/2014 02/24/2014 Inactive (Appended: Controlled substance eRx refill - RxReferenceNumber: [id number]) Lipitor 10 mg tablet RxNorm: 472246 Tablet(s) PO TAKE ONE TABLET BY MOUTH EVERY DAY 01/14/2014 04/13/2014 Inactive Synthroid 100 mcg tablet RxNorm: 255968 Tablet(s) PO TAKE ONE TABLET BY MOUTH EVERY DAY 2013 03/31/2014 Inactive Fioricet 50 mg-325 mg-40 mg tablet RxNorm: 367431 Tablet(s) PO TAKE ONE TABLET BY MOUTH EVERY 4 HOURS NEEDED FOR PAIN 11/27/2013 09/17/2014 Inactive Fioricet 50 mg-325 mg-40 mg tablet RxNorm: 961444 Tablet(s) PO TAKE ONE TABLET BY MOUTH EVERY 4 HOURS NEEDED FOR PAIN 11/25/2013 11/26/2013 Inactive Zithromax Z-Sergio 250 mg tablet RxNorm: 813494 Tablet(s) PO as directed 11/11/2013 01/13/2014 Inactive Bystolic 10 mg tablet RxNorm: 030015 Tablet(s) PO TAKE ONE TABLET BY MOUTH EVERY DAY 10/21/2013 09/28/2014 Inactive Abilify 2 mg tablet RxNorm: 479222 1 Tablet(s) PO QHS 09/25/2013 01/22/2014 Inactive Synthroid 100 mcg tablet RxNorm: 912859 Tablet(s) PO TAKE ONE TABLET BY MOUTH EVERY DAY 09/24/2013 12/25/2013 Inactive Abilify 2 mg tablet RxNorm: 232486 1 Tablet(s) PO QHS 09/24/2013 09/24/2013 Inactive Rocephin 500 mg solution for injection RxNorm: 909412 1ml Milliliter(s) Inj 09/24/2013 09/24/2013 Inactive Rocephin 500 mg solution for injection RxNorm: 439507 1 Milliliter(s) Inj 09/19/2013 09/19/2013 Inactive Bystolic 5 mg tablet RxNorm: 568086 1 1/2 Tablet(s) PO daily 09/17/2013 03/15/2014 Inactive 1 1/2 daily may have 90 day if cheaper Bystolic 5 mg tablet RxNorm: 024509 1 1/2 Tablet(s) PO daily 09/17/2013 09/16/2013 Inactive 1 1/2 daily Lipitor 10 mg tablet RxNorm: 457949 Tablet(s) PO TAKE ONE TABLET BY MOUTH EVERY DAY 09/12/2013 01/13/2014 Inactive hydrocodone 10 mg-acetaminophen 325 mg tablet RxNorm: 302247 Tablet(s) PO TAKE ONE TO TWO TABLETS BY MOUTH EVERY 6 HOURS NEEDED FOR PAIN 09/09/2013 No Stop Date Active (Appended: Controlled substance eRx refill - RxReferenceNumber: [id number]) hydrocodone 10 mg-acetaminophen 325 mg tablet RxNorm: 505145 1 Tablet(s) PO Q6 PRN 09/09/2013 02/06/2014 Inactive hydrocodone 10 mg-acetaminophen 325 mg tablet RxNorm: 710916 Tablet(s) PO TAKE ONE TO TWO TABLETS BY MOUTH EVERY 6 HOURS NEEDED FOR PAIN 09/06/2013 No Stop Date Active (Appended: Controlled substance eRx refill - RxReferenceNumber: [id number]) Norvasc 10 mg tablet RxNorm: 859699 Tablet(s) PO TAKE ONE TABLET BY MOUTH EVERY DAY 09/05/2013 10/25/2015 Inactive trazodone 50 mg tablet RxNorm: 491398 1 1/2 Tablet(s) PO QHS 09/03/2013 03/17/2014 Inactive 75q hs x 2 week may increase to 100mg if nec after that nystatin 100,000 unit/mL oral suspension RxNorm: 943912 6 Milliliter(s) PO QID 08/06/2013 08/15/2013 Inactive Flonase 50 mcg/actuation nasal spray,suspension RxNorm: 573065 2 [place] NASAL daily 08/06/2013 03/03/2014 Inactive nystatin 100,000 unit/mL oral suspension RxNorm: 792975 6 Unit(s) PO QID 08/05/2013 08/05/2013 Inactive Phenergan with Codeine Syrup RxNorm: 5 Milliliter(s) PO Q4 PRN 08/05/2013 12/02/2013 Inactive 8 ounces alprazolam 0.25 mg tablet RxNorm: 811712 1 Tablet(s) PO QDAY PRN 07/29/2013 01/14/2014 Inactive Diflucan 150 mg tablet RxNorm: 602764 1 Tablet(s) PO daily 07/24/2013 07/26/2013 Inactive hydrochlorothiazide 25 mg tablet RxNorm: 669012 Tablet(s) PO TAKE ONE TABLET BY MOUTH EVERY DAY MUST CALL MD FOR APPOINTMENT 07/19/2013 03/05/2014 Inactive Phenergan with Codeine Syrup RxNorm: 10 Milliliter(s) PO Q4 PRN 07/10/2013 08/04/2013 Inactive 8 ounces Rocephin 500 mg solution for injection RxNorm: 122867 1 Inj 07/10/2013 07/10/2013 Inactive cefdinir 300 mg capsule RxNorm: 867495 1 Capsule(s) PO BID 07/10/2013 07/16/2013 Inactive prednisone 10 mg tablet RxNorm: 375455 3 Tablet(s) PO daily 07/10/2013 07/14/2013 Inactive Carafate 100 mg/mL oral suspension RxNorm: 871254 10 Milliliter(s) PO Q6 PRN pt to take carafate 10mL every 6 hours as needed. 07/10/2013 08/05/2014 Inactive Kenalog 40 mg/mL suspension for injection RxNorm: 4981006 1 Milliliter(s) Inj 07/10/2013 07/10/2013 Inactive trazodone 50 mg tablet RxNorm: 187767 1 Tablet(s) PO QHS 07/10/2013 09/02/2013 Inactive sulfamethoxazole 800 mg-trimethoprim 160 mg tablet RxNorm: 602381 1 Tablet(s) PO BID 06/03/2013 06/12/2013 Inactive Synthroid 125 mcg tablet RxNorm: 027636 1 Tablet(s) PO daily 05/07/2013 09/23/2013 Inactive Bystolic 10 mg tablet RxNorm: 426581 1.5 Tablet(s) PO daily 05/07/2013 09/03/2013 Inactive Voltaren 1 % Topical Gel RxNorm: 153732 4 Gram(s) TOP QID apply 4 grams to knees, 2 grams to hands and ankles four times daily. 05/07/2013 09/03/2013 Inactive hydrocodone 10 mg-acetaminophen 325 mg tablet RxNorm: 917570 1 Tablet(s) PO Q6 PRN 04/23/2013 09/09/2013 Inactive Norvasc 10 mg tablet RxNorm: 382104 Tablet(s) PO TAKE ONE TABLET BY MOUTH EVERY DAY 04/23/2013 09/04/2013 Inactive alprazolam 0.25 mg tablet RxNorm: 432519 1 Tablet(s) PO QDAY PRN 03/25/2013 07/22/2013 Inactive Bystolic 10 mg tablet RxNorm: 899329 1 Tablet(s) PO daily TAKE ONE TABLET BY MOUTH EVERY DAY 03/25/2013 05/06/2013 Inactive zolpidem 10 mg tablet RxNorm: 690327 1 Tablet(s) PO HS PRN 03/25/2013 07/09/2013 Inactive gentamicin 0.3 % Eye Drops RxNorm: 934330 3 Drop(s) OPH QID three gtts to each eye QID x 7 days 03/11/2013 03/10/2013 Inactive gentamicin 0.3 % eye drops RxNorm: 451522 3 Drop(s) OPH QID three gtts to each eye QID x 7 days 03/11/2013 03/17/2013 Inactive Nexium 40 mg capsule,delayed release RxNorm: 425821 Capsule(s) PO TAKE ONE CAPSULE BY MOUTH EVERY DAY 02/15/2013 02/17/2014 Inactive Cymbalta 60 mg capsule,delayed release RxNorm: 116242 Capsule(s) PO TAKE ONE CAPSULE BY MOUTH TWICE A DAY 02/15/2013 02/17/2014 Inactive hydrocodone 10 mg-acetaminophen 325 mg tablet RxNorm: 1875743 1 Tablet(s) PO Q6 PRN 01/22/2013 04/22/2013 Inactive Lipitor 10 mg tablet RxNorm: 939702 Tablet(s) PO TAKE ONE TABLET BY MOUTH EVERY DAY 01/07/2013 09/11/2013 Inactive Cymbalta 60 mg capsule,delayed release RxNorm: 531751 Capsule(s) PO TAKE ONE CAPSULE BY MOUTH TWICE A DAY 01/02/2013 02/14/2013 Inactive Synthroid 100 mcg tablet RxNorm: 374680 1 Tablet(s) PO 12/03/2012 05/06/2013 Inactive Enablex 7.5 mg tablet,extended release RxNorm: 143186 1 Tablet(s) PO daily 11/28/2012 11/27/2012 Inactive Enablex 7.5 mg tablet,extended release RxNorm: 036768 1 Tablet(s) PO daily 11/28/2012 11/28/2012 Inactive scopolamine 1.5 mg 72 hr Transderm Patch RxNorm: 911292 1 Milligram(s) TD q72 hours 11/26/2012 05/06/2013 Inactive hydrochlorothiazide 25 mg tablet RxNorm: 560836 Tablet(s) PO TAKE ONE TABLET BY MOUTH EVERY DAY MUST CALL FOR APPOINTMENT 11/24/2012 07/18/2013 Inactive Cymbalta 60 mg capsule,delayed release RxNorm: 621856 Capsule(s) PO TAKE ONE CAPSULE BY MOUTH TWICE A DAY 10/26/2012 01/01/2013 Inactive Bystolic 10 mg tablet RxNorm: 561428 Tablet(s) PO TAKE ONE TABLET BY MOUTH EVERY DAY 10/12/2012 03/25/2013 Inactive zolpidem 10 mg tablet RxNorm: 336600 1 Tablet(s) PO HS PRN 10/02/2012 01/29/2013 Inactive alprazolam 0.25 mg tablet RxNorm: 850177 1 Tablet(s) PO QDAY PRN 10/02/2012 01/29/2013 Inactive Kenalog 40 mg/mL Susp for Injection RxNorm: 3025601 1 Milliliter(s) Inj 09/24/2012 09/24/2012 Inactive Diflucan 150 mg tablet RxNorm: 402779 1 Tablet(s) PO daily 09/24/2012 09/30/2012 Inactive acyclovir 400 mg tablet RxNorm: 194802 1 Tablet(s) PO QID 09/24/2012 10/08/2012 Inactive Cipro 500 mg tablet RxNorm: 229049 1 Tablet(s) PO BID 09/24/2012 09/30/2012 Inactive Tamiflu 75 mg capsule RxNorm: 322702 1 Capsule(s) PO BID 09/17/2012 09/16/2012 Inactive Tamiflu 75 mg capsule RxNorm: 160494 1 Capsule(s) PO BID 09/17/2012 09/16/2012 Inactive Tamiflu 75 mg capsule RxNorm: 949782 1 Capsule(s) PO BID please disregard order for #14 09/17/2012 09/21/2012 Inactive fluconazole 150 mg tablet RxNorm: 509916 1 Tablet(s) PO daily 09/10/2012 09/13/2012 Inactive ketoconazole 2 % Topical Cream RxNorm: 253644 Application TOP BID apply to affected area BID until gone 08/31/2012 No Stop Date Active Norvasc 10 mg tablet RxNorm: 320784 Tablet(s) PO TAKE ONE TABLET BY MOUTH EVERY DAY 08/29/2012 04/22/2013 Inactive Cipro 500 mg tablet RxNorm: 537191 1 Tablet(s) PO BID 08/17/2012 08/26/2012 Inactive Flagyl 500 mg tablet RxNorm: 797154 1 Tablet(s) PO TID 08/17/2012 08/23/2012 Inactive Cipro 500 mg tablet RxNorm: 414670 1 Tablet(s) PO BID 08/17/2012 08/16/2012 Inactive zolpidem 10 mg tablet RxNorm: 833706 1 Tablet(s) PO HS PRN 08/17/2012 09/15/2012 Inactive Flagyl 500 mg tablet RxNorm: 949014 1 Tablet(s) PO TID 08/17/2012 08/16/2012 Inactive alprazolam 0.25 mg tablet RxNorm: 159098 1 Tablet(s) PO QDAY PRN 08/17/2012 09/15/2012 Inactive Belle Allergy 180 mg tablet RxNorm: 119268 1 Tablet(s) PO daily 08/08/2012 02/03/2013 Inactive hydrochlorothiazide 25 mg tablet RxNorm: 305297 1/2 Tablet(s) PO daily 08/08/2012 11/05/2012 Inactive needs appt Carafate 1 gram tablet RxNorm: 207374 1 Tablet(s) PO QID mix with 10 cc water and dissolve into slurry 08/08/2012 08/21/2012 Inactive hydrocodone 10 mg-acetaminophen 325 mg tablet RxNorm: 3230126 1 Tablet(s) PO Q6 PRN 08/08/2012 01/21/2013 Inactive Synthroid 100 mcg tablet RxNorm: 077474 1 Tablet(s) PO 08/08/2012 12/02/2012 Inactive Cymbalta 60 mg capsule,delayed release RxNorm: 475869 Capsule(s) PO 07/23/2012 10/25/2012 Inactive TAKE ONE CAPSULE BY MOUTH TWICE A DAY Nexium 40 mg capsule,delayed release RxNorm: 147058 Capsule(s) PO 06/20/2012 02/14/2013 Inactive TAKE ONE CAPSULE BY MOUTH EVERY DAY Lipitor 10 mg tablet RxNorm: 458033 Tablet(s) PO 06/20/2012 01/06/2013 Inactive TAKE ONE TABLET BY MOUTH EVERY DAY hydrochlorothiazide 25 mg tablet RxNorm: 810426 1 Tablet(s) PO daily 06/19/2012 08/07/2012 Inactive needs appt alprazolam 0.25 mg tablet RxNorm: 790011 1 Tablet(s) PO QDAY PRN 06/05/2012 07/04/2012 Inactive zolpidem 10 mg tablet RxNorm: 806104 1 Tablet(s) PO HS PRN 06/05/2012 07/04/2012 Inactive zolpidem 10 mg tablet RxNorm: 696736 1 Tablet(s) PO HS PRN 04/16/2012 05/15/2012 Inactive alprazolam 0.25 mg tablet RxNorm: 035694 1 Tablet(s) PO QDAY PRN 04/16/2012 05/15/2012 Inactive Cymbalta 60 mg capsule,delayed release RxNorm: 359751 1 Capsule(s) PO BID 03/22/2012 07/19/2012 Inactive Fioricet 50 mg-325 mg-40 mg tablet RxNorm: 138985 1 Tablet(s) PO Q4 PRN 03/22/2012 11/24/2013 Inactive Bystolic 10 mg tablet RxNorm: 796196 Tablet(s) PO 03/22/2012 10/11/2012 Inactive TAKE ONE TABLET BY MOUTH EVERY DAY potassium chloride ER 10 mEq Tab RxNorm: 548624 1 Tablet(s) PO daily 02/24/2012 03/01/2012 Inactive Lasix 20 mg Tab RxNorm: 744950 1 Tablet(s) PO daily 02/22/2012 02/21/2012 Inactive KCL 10 meq RxNorm: 1 PO daily 02/22/2012 02/21/2012 Inactive potassium chloride ER 10 mEq Tab RxNorm: 462094 1 Tablet(s) PO daily 02/22/2012 02/21/2012 Inactive Lasix 20 mg Tab RxNorm: 563371 1 Tablet(s) PO daily 02/22/2012 02/28/2012 Inactive KCL 10 meq RxNorm: 1 PO daily 02/22/2012 02/22/2012 Inactive potassium chloride ER 10 mEq Tab RxNorm: 181591 1 Tablet(s) PO daily 02/22/2012 02/23/2012 Inactive Rocephin 500 mg Solution for Injection RxNorm: 723057 Inj 02/15/2012 02/15/2012 Inactive Nexium 40 mg capsule,delayed release RxNorm: 257207 1 Capsule(s) PO daily 02/15/2012 No Stop Date Active Bystolic 10 mg Tab RxNorm: 523004 1 Tablet(s) PO daily 02/15/2012 08/12/2012 Inactive alprazolam 0.25 mg tablet RxNorm: 851186 1 Tablet(s) PO QDAY PRN 01/31/2012 02/29/2012 Inactive zolpidem 10 mg tablet RxNorm: 658744 1 Tablet(s) PO HS PRN 01/31/2012 02/29/2012 Inactive alprazolam 0.25 mg Tab RxNorm: 513072 1 Tablet(s) PO QDAY PRN 12/16/2011 01/14/2012 Inactive zolpidem 10 mg Tab RxNorm: 657952 1 Tablet(s) PO HS PRN 12/16/2011 01/14/2012 Inactive Norvasc 10 mg tablet RxNorm: 181020 1 Tablet(s) PO daily 12/02/2011 02/21/2012 Inactive Lipitor 10 mg tablet RxNorm: 044571 1 Tablet(s) PO daily 11/16/2011 05/13/2012 Inactive zolpidem 10 mg Tab RxNorm: 957673 1 Tablet(s) PO HS PRN 10/26/2011 12/15/2011 Inactive alprazolam 0.25 mg Tab RxNorm: 037410 1 Tablet(s) PO QDAY PRN 10/26/2011 12/15/2011 Inactive hydrochlorothiazide 25 mg tablet RxNorm: 813490 1 Tablet(s) PO daily 09/05/2011 03/02/2012 Inactive Synthroid 75 mcg tablet RxNorm: 900019 1 Tablet(s) PO daily 08/01/2011 02/26/2012 Inactive Abilify 2 mg Tab RxNorm: 637409 1 Tablet(s) PO QHS 08/01/2011 09/10/2012 Inactive dicyclomine 10 mg Cap RxNorm: 721782 1 Capsule(s) PO TID 08/01/2011 10/29/2011 Inactive alprazolam 0.25 mg Tab RxNorm: 134196 1 Tablet(s) PO QDAY PRN 07/26/2011 10/25/2011 Inactive Fioricet 50 mg-325 mg-40 mg tablet RxNorm: 007045 1 Tablet(s) PO Q4 PRN 07/14/2011 03/21/2012 Inactive Rocephin 500 mg Solution for Injection RxNorm: 746464 1 Milliliter(s) Inj 07/14/2011 08/01/2011 Inactive Nexium 40 mg Capsule, delayed release RxNorm: 219307 1 Capsule(s) PO daily 05/23/2011 10/06/2011 Inactive Bystolic 10 mg tablet RxNorm: 564605 1 Tablet(s) PO daily 05/23/2011 11/18/2011 Inactive Bystolic 10 mg Tab RxNorm: 085897 1 Tablet(s) PO daily 05/23/2011 05/22/2011 Inactive alprazolam 0.25 mg Tab RxNorm: 264415 1 Tablet(s) PO QDAY PRN 05/23/2011 07/25/2011 Inactive Influenza Virus Vaccine 0.5 mL RxNorm: IM 05/23/2011 05/23/2011 Inactive zolpidem 10 mg Tab RxNorm: 521000 1 Tablet(s) PO HS PRN 05/23/2011 10/25/2011 Inactive Rocephin 500 mg Solution for Injection RxNorm: 069368 1 Milliliter(s) Inj 05/03/2011 07/14/2011 Inactive Kenalog 40 mg/mL Susp for Injection RxNorm: 9375524 1 Milliliter(s) Inj 05/03/2011 07/14/2011 Inactive Bactrim DS 800 mg-160 mg Tab RxNorm: 328735 1 Tablet(s) PO BID 05/03/2011 08/01/2011 Inactive Flonase 50 mcg/actuation nasal spray,suspension RxNorm: 9600860 1 [place] NASAL daily No Start Date Active 1 spray to each nostril daily aspirin 81 mg tablet RxNorm: 886479 1 Tablet(s) PO daily No Start Date Active baclofen 10 mg tablet RxNorm: 893947 1 Tablet(s) PO TID as needed muscle spasms No Start Date Active Fish Oil 1,000 mg Cap RxNorm: 1 Capsule(s) PO TID No Start Date Active Flonase 50 mcg/actuation nasal spray,suspension RxNorm: 5846547 2 [place] NASAL daily No Start Date 08/05/2013 Inactive Duragesic 50 mcg/hr transdermal patch RxNorm: 743830 1 TD q72 hours No Start Date 01/13/2014 Inactive Vesicare 5 mg tablet RxNorm: 310140 1 Tablet(s) PO daily No Start Date 01/06/2015 Inactive Celebrex 200 mg capsule RxNorm: 551579 1 Capsule(s) PO daily No Start Date 04/02/2014 Inactive zolpidem 10 mg Tab RxNorm: 454051 1 Tablet(s) PO HS PRN No Start Date 05/22/2011 Inactive Zyrtec 10 mg Tab RxNorm: 4999447 1 Tablet(s) PO daily No Start Date 08/08/2012 Inactive Nexium 40 mg Cap RxNorm: 193897 1 Capsule(s) PO daily No Start Date 05/22/2011 Inactive ketoconazole 2 % Topical Cream RxNorm: 710575 Application TOP BID apply to affected area BID until gone No Start Date 08/30/2012 Inactive Cymbalta 60 mg capsule,delayed release RxNorm: 633445 1 Capsule(s) PO BID No Start Date 03/21/2012 Inactive alprazolam 0.25 mg Tab RxNorm: 139668 1 Tablet(s) PO QDAY PRN No Start Date 05/22/2011 Inactive Toprol XL 100 mg 24 hr Tab RxNorm: 500745 1 Tablet(s) PO BID No Start Date 04/25/2011 Inactive Xanax 0.25 mg tablet RxNorm: 372647 1 Tablet(s) PO daily as needed No Start Date 12/27/2015 Inactive Bystolic 10 mg Tab RxNorm: 068880 1 Tablet(s) PO daily No Start Date 05/22/2011 Inactive Fioricet 50 mg-325 mg-40 mg Tab RxNorm: 782181 1 Tablet(s) PO Q4 PRN No Start Date 07/13/2011 Inactive albuterol sulfate HFA 90 mcg/Actuation Aerosol Inhaler RxNorm: 4868781 1 INH Q4 PRN No Start Date 01/06/2015 Inactive Imitrex 50 mg tablet RxNorm: 526081 1 Tablet(s) PO Q8 as needed may repeat x1 dose in 1 hour of inital dose. No Start Date 02/24/2016 Inactive dc fioricet Tessalon 200 mg Cap RxNorm: 893711 1 Capsule(s) PO Q4 PRN No Start Date 02/14/2012 Inactive Zithromax Z-Sergio 250 mg tablet RxNorm: 946456 Tablet(s) PO No Start Date 11/10/2013 Inactive hydrochlorothiazide 25 mg Tab RxNorm: 168141 1 Tablet(s) PO daily No Start Date 09/04/2011 Inactive Deplin 15 mg Tab RxNorm: 1 Tablet(s) PO daily No Start Date 08/01/2011 Inactive Brilinta 90 mg tablet RxNorm: 3829055 1 Tablet(s) PO BID No Start Date 11/23/2015 Inactive Synthroid 75 mcg Tab RxNorm: 183553 1 Tablet(s) PO daily No Start Date 07/31/2011 Inactive scopolamine 1.5 mg 72 hr Transderm Patch RxNorm: 596280 1 Milligram(s) TD q72 hours No Start Date 11/25/2012 Inactive hydrocodone-acetaminophen 10 mg-325 mg tablet RxNorm: 7820571 1 Tablet(s) PO Q6 PRN No Start Date 08/07/2012 Inactive Phenergan with Codeine Syrup RxNorm: 5-10 Milliliter(s) PO Q6 PRN No Start Date 02/14/2012 Inactive Norvasc 10 mg Tab RxNorm: 935283 1 Tablet(s) PO daily No Start Date 12/01/2011 Inactive Zithromax Z-Sergio 250 mg Tab RxNorm: 803581 Tablet(s) PO No Start Date 08/01/2011 Inactive Medication Administered Medication Codes Instructions Start Date Status Kenalog 40 mg/mL suspension for injection RxNorm: 5381205 1Milliliter 03/14/2017 Active ceftriaxone 500 mg solution for injection RxNorm: 5452740 1Milliliter 11/28/2016 No longer Active Kenalog 40 mg/mL suspension for injection RxNorm: 6187317 Milliliter 11/07/2016 No longer Active ceftriaxone 500 mg solution for injection RxNorm: 8749025 11/07/2016 No longer Active ceftriaxone 500 mg solution for injection RxNorm: 3989669 12/07/2015 No longer Active Kenalog 40 mg/mL suspension for injection RxNorm: 2963433 1Milliliter 11/24/2015 No longer Active ceftriaxone 500 mg solution for injection RxNorm: 0994049 Milliliter 11/24/2015 No longer Active promethazine 25 mg/mL injection solution RxNorm: 747621 Milliliter 08/27/2015 No longer Active ketorolac 60 mg/2 mL intramuscular solution RxNorm: 660906 Milliliter 08/27/2015 No longer Active Kenalog 40 mg/mL suspension for injection RxNorm: 1498295 Milliliter 08/10/2015 No longer Active ceftriaxone 500 mg solution for injection RxNorm: 5464976 08/10/2015 No longer Active ceftriaxone 500 mg solution for injection RxNorm: 4796882 1Milliliter 07/28/2015 No longer Active Kenalog 40 mg/mL suspension for injection RxNorm: 0888416 Milliliter 03/19/2015 No longer Active Kenalog 40 mg/mL suspension for injection RxNorm: 3854552 Milliliter 06/23/2014 No longer Active ceftriaxone 500 mg solution for injection RxNorm: 403408 06/23/2014 No longer Active Rocephin 500 mg solution for injection RxNorm: 793028 1mlMilliliter 09/24/2013 No longer Active Rocephin 500 mg solution for injection RxNorm: 875943 1Milliliter 09/19/2013 No longer Active Rocephin 500 mg solution for injection RxNorm: 897571 1 07/10/2013 No longer Active Kenalog 40 mg/mL suspension for injection RxNorm: 6041036 1Milliliter 07/10/2013 No longer Active Kenalog 40 mg/mL Susp for Injection RxNorm: 4920595 1Milliliter 09/24/2012 No longer Active Rocephin 500 mg Solution for Injection RxNorm: 646083 02/15/2012 No longer Active Influenza Virus Vaccine 0.5 mL RxNorm: 05/23/2011 No longer Active Immunizations Vaccine Codes Date Status Influenza CVX: 141 06/24/2013 completed Pneumococcal CVX: 33 06/24/2013 completed PPD Unknown 05/13/2013 completed Assessments Condition Codes Effective Dates Acute recurrent maxillary sinusitis ICD-10: J01.01 ICD-9: 461.0 03/14/2017 Epigastric pain ICD-10: R10.13 ICD-9: 536.8 02/20/2017 Left upper quadrant pain ICD-10: R10.12 ICD-9: 789.02 02/20/2017 Left lower quadrant pain ICD-10: R10.32 ICD-9: 789.04 02/20/2017 Major depressive disorder, recurrent, moderate ICD-10: F33.1 ICD-9: 296.32 02/06/2017 Actinic keratosis ICD-10: L57.0 ICD-9: 702.0 02/06/2017 Generalized anxiety disorder ICD-10: F41.1 ICD-9: 300.02 02/06/2017 Dysuria ICD-10: R30.0 ICD-9: 788.1 11/28/2016 Other acute sinusitis ICD-10: J01.80 ICD-9: 461.8 11/07/2016 Other specified hypothyroidism ICD-10: E03.8 ICD-9: 244.8 11/07/2016 Encounter for general adult medical examination with abnormal findings ICD-10: Z00.01 ICD-9: V70.0 11/07/2016 Acute laryngopharyngitis ICD-10: J06.0 ICD-9: 465.0 08/15/2016 Other allergic rhinitis ICD-10: J30.89 ICD-9: 477.8 08/15/2016 Low back pain ICD-10: M54.5 ICD-9: 724.2 06/07/2016 Essential (primary) hypertension ICD-10: I10 ICD-9: 401.9 03/15/2016 Headache ICD-10: R51 ICD-9: 784.0 03/14/2016 Laceration without foreign body, left lower leg, initial encounter ICD-10: S81.812A ICD-9: 894.0 02/22/2016 Cough ICD-10: R05 ICD-9: 786.2 12/07/2015 Allergic rhinitis due to pollen ICD-10: J30.1 ICD-9: 477.0 12/07/2015 Generalized intra-abdominal and pelvic swelling, mass and lump ICD-10: R19.07 ICD-9: 789.37 11/24/2015 Cervicalgia ICD-10: M54.2 ICD-9: 723.1 11/24/2015 Other migraine, intractable, without status migrainosus [...] Visit Reason For Visit Effective Dates Notes sinus congestion 03/14/2017 abdominal pain 02/20/2017 depression [...] Observation Code Item Item Code Result Date Urine Culture Ucult Preliminary NO Growth Day [...] 26.9 % 11/07/2016 Cbc With Differential Ord2 Lares% 6.1 % 11/07/2016 Cbc With Differential Ord2 MCH 31.4 pg 11/07/2016 Cbc With Differential Ord2 MCHC 32.6 pg 11/07/2016 Cbc With Differential Ord2 Eos% 2.8 % 11/07/2016 Cbc With Differential Ord2 Baso% 0.5 % 11/07/2016 Cbc With Differential Ord2 PLT 231 K/ul 11/07/2016 Cbc With Differential Ord2 RDW 13.7 % 11/07/2016 Cbc With Differential Ord2 Neut ABS# 5.87 K/ul 11/07/2016 Cbc With Differential Ord2 Lymph ABS# 2.48 K/ul 11/07/2016 Cbc With Differential Ord2 Lares ABS# 0.6 K/ul 11/07/2016 Cbc With Differential Ord2 Eos ABS# 0.3 K/ul 11/07/2016 Cbc With Differential Ord2 Baso ABS# 0.1 K/ul 11/07/2016 Comp Metabolic Vgm896 NA 139 mEq/L 11/07/2016 Comp Metabolic Bdu958 K 3.8 mEq/L 11/07/2016 Comp Metabolic Elv875 CL 106 mEq/L 11/07/2016 Comp Metabolic Srk714 CO2 25.0 mEq/L 11/07/2016 Comp Metabolic Dcm532 ANION GAP 12 11/07/2016 Comp Metabolic Slh124 GLUCOSE 98 mg/dL 11/07/2016 Comp Metabolic Agg202 Creat 0.8 mg/dL 11/07/2016 Comp Metabolic Ewk705 eGFR 71 ml/min/1.73m2 11/07/2016 Comp Metabolic Iax888 BUN 36 mg/dL 11/07/2016 Comp Metabolic Wlr507 B/C Ratio 42.9 Ratio 11/07/2016 Comp Metabolic Jsv180 CALCIUM 9.9 mg/dL 11/07/2016 Comp Metabolic Rhi907 ALK PHOS 57 U/L 11/07/2016 Comp Metabolic Exe734 AST(SGOT) 24 U/L 11/07/2016 Comp Metabolic Oja714 ALT(SGPT) 28 U/L 11/07/2016 Comp Metabolic Mut530 BILI T 0.4 mg/dL 11/07/2016 Comp Metabolic Uwv431 ALBUMIN 4.2 g/dL 11/07/2016 Comp Metabolic Vsv197 TPRO 7.0 g/dL 11/07/2016 Comp Metabolic Jsz512 GLOB 2.8 g/dL 11/07/2016 Comp Metabolic Uuy878 A/G Ratio 1.5 Ratio 11/07/2016 Comp Metabolic Jci033 Osmo 286 mOsmo 11/07/2016 Free T4 Svb909 FREE T4 0.75 ng/dL 11/07/2016 Tsh Ord6 hTSH II 3.46 uIU/mL 11/07/2016 Comp Metabolic Baj995 NA 138 mEq/L 05/10/2016 Comp Metabolic Zqx748 K 3.8 mEq/L 05/10/2016 Comp Metabolic Tkw568 CL 102 mEq/L 05/10/2016 Comp Metabolic Xfo168 CO2 29.0 mEq/L 05/10/2016 Comp Metabolic Mct960 ANION GAP 11 05/10/2016 Comp Metabolic Yxz591 GLUCOSE 107 mg/dL 05/10/2016 Comp Metabolic Hon693 Creat 0.7 mg/dL 05/10/2016 Comp Metabolic Ofa109 eGFR 93 ml/min/1.73m2 05/10/2016 Comp Metabolic Cfk198 BUN 18 mg/dL 05/10/2016 Comp Metabolic Mcy457 B/C Ratio 26.9 Ratio 05/10/2016 Comp Metabolic Qmc054 CALCIUM 9.8 mg/dL 05/10/2016 Comp Metabolic Gbr823 ALK PHOS 60 U/L 05/10/2016 Comp Metabolic Rlq834 AST(SGOT) 21 U/L 05/10/2016 Comp Metabolic Xbt630 ALT(SGPT) 23 U/L 05/10/2016 Comp Metabolic Wxg342 BILI T 0.5 mg/dL 05/10/2016 Comp Metabolic Zjn100 ALBUMIN 4.1 g/dL 05/10/2016 Comp Metabolic Kgu287 TPRO 6.7 g/dL 05/10/2016 Comp Metabolic Ysh302 GLOB 2.7 g/dL 05/10/2016 Comp Metabolic Aav383 A/G Ratio 1.5 Ratio 05/10/2016 Comp Metabolic Tma141 Osmo 278 mOsmo 05/10/2016 Lipid Ord30 CHOL 169 mg/dL 05/10/2016 Lipid Ord30 HDL 50.0 mg/dl 05/10/2016 Lipid Ord30 TRIG 161 mg/dL 05/10/2016 Lipid Ord30 LDL 87 mg/dL 05/10/2016 Lipid Ord30 C/HDL 3.4 Ratio 05/10/2016 Comp Metabolic Tzy964 NA 137 mEq/L 06/12/2015 Comp Metabolic Ceo395 K 3.8 mEq/L 06/12/2015 Comp Metabolic Dya352 CL 104 mEq/L 06/12/2015 Comp Metabolic Mfe573 CO2 24.0 mEq/L 06/12/2015 Comp Metabolic Lzy014 ANION GAP 13 06/12/2015 Comp Metabolic Bfe146 GLUCOSE 92 mg/dL 06/12/2015 Comp Metabolic Inj400 Creat 0.7 mg/dL 06/12/2015 Comp Metabolic Kzw234 eGFR 87 ml/min/1.73m2 06/12/2015 Comp Metabolic Cod905 BUN 31 mg/dL 06/12/2015 Comp Metabolic Nmh849 B/C Ratio 43.7 Ratio 06/12/2015 Comp Metabolic Kkw483 CALCIUM 10.0 mg/dL 06/12/2015 Comp Metabolic Qhh859 ALK PHOS 58 U/L 06/12/2015 Comp Metabolic Cew069 AST(SGOT) 32 U/L 06/12/2015 Comp Metabolic Alt977 ALT(SGPT) 33 U/L 06/12/2015 Comp Metabolic Lox590 BILI T 0.5 mg/dL 06/12/2015 Comp Metabolic Ecj459 ALBUMIN 4.1 g/dL 06/12/2015 Comp Metabolic Xeq667 TPRO 6.6 g/dL 06/12/2015 Comp Metabolic Nnl337 GLOB 2.5 g/dL 06/12/2015 Comp Metabolic Hrf018 A/G Ratio 1.6 Ratio 06/12/2015 Comp Metabolic Fbc971 Osmo 280 mOsmo 06/12/2015 Cbc With Differential [...] Differential Ord2 RDW 14.2 % 06/12/2015 CBC 8918590 WBC 8.7 10e9/L 04/30/2013 CBC 8281194 RBC 4.63 10e12/L 04/30/2013 CBC 7940526 HGB 14.1 g/dL 04/30/2013 CBC 8174970 HCT DET 42.2 % 04/30/2013 CBC 7083509 MCV 91.1 fL 04/30/2013 CBC 8772825 MCH 30.5 pg 04/30/2013 CBC 6554247 MCHC 33.4 g/dL 04/30/2013 CBC 5885277 PLT 248 10e9/L 04/30/2013 CBC 6226064 MPV 12.1 fL 04/30/2013 CBC 3980944 LARA % 59.0 % 04/30/2013 CBC 6128807 LY % 27.6 % 04/30/2013 CBC 4747541 MON % 8.0 % 04/30/2013 CBC 5794516 EOS % 4.8 % 04/30/2013 CBC 6440363 BASO % 0.6 % 04/30/2013 CBC 4940574 RDW 13.3 % 04/30/2013 CBC 7091865 ABS LARA 5.13 10e9/L 04/30/2013 CBC 9012504 ABS LYMPH 2.40 10e9/L 04/30/2013 CBC 4467901 ABS MONO 0.70 10e9/L 04/30/2013 CBC 0463363 ABS EOS 0.42 10e9/L 04/30/2013 CBC 9471030 ABS BASO 0.05 10e9/L 04/30/2013 CBC 6502767 RDW-SD 43.1 fL 04/30/2013 TSH 1259102 TSH 4.339 uIU/ML 04/30/2013 A1C HPLC 6983817 A1C HPLC 89800-7 5.6 % 04/30/2013 FREE T4 5813092 FREE T4 0.84 NG/DL 04/30/2013 GFR CALC 2286032 GFR AA >60 ML/MIN 04/30/2013 GFR CALC 1471206 GFR NON-AA >60 ML/MIN 04/30/2013 CHEM 14 7025531 AST 22 U/L 04/30/2013 CHEM 14 8805697 ALT 22 IU/L 04/30/2013 CHEM 14 9402357 BUN 24 MG/DL 04/30/2013 CHEM 14 3802139 ALBUMIN 4.2 GM/DL 04/30/2013 CHEM 14 8059312 CHLORIDE 107 MMOL/L 04/30/2013 CHEM 14 9248738 BILI TOT 0.3 MG/DL 04/30/2013 CHEM 14 3662245 ALK PHOS 88 U/L 04/30/2013 CHEM 14 7497645 SODIUM 141 MMOL/L 04/30/2013 CHEM 14 5563837 CREATININE 0.60 MG/DL 04/30/2013 CHEM 14 2336149 CALCIUM 9.9 MG/DL 04/30/2013 CHEM 14 7282851 POTASSIUM 3.7 MMOL/L 04/30/2013 CHEM 14 8145216 PROT TOT 6.6 GM/DL 04/30/2013 CHEM 14 1639021 GLUCOSE 123 MG/DL 04/30/2013 CHEM 14 0985129 BICARB 25 MMOL/L 04/30/2013 CHEM 14 6411311 ANION GAP 9 MEQ/L 04/30/2013 LIPID GRP 8672986 HDL TEST 46 MG/DL 04/30/2013 LIPID GRP 7113294 TRIG 148 MG/DL 04/30/2013 LIPID GRP TEST LDL 75 MG/DL 04/30/2013 LIPID GRP CHOL 151 MG/DL 04/30/2013 LIPID GRP RCHOL/HDL 3.28 RATIO 04/30/2013 TSH 6205041 TSH 3.341 uIU/ML 11/29/2012 CBC 3490428 WBC 8.4 10e9/L 11/29/2012 CBC 0068777 RBC 4.77 10e12/L 11/29/2012 CBC 4862983 HGB 14.9 g/dL 11/29/2012 CBC 4430652 HCT DET 44.2 % 11/29/2012 CBC 2041580 MCV 92.7 fL 11/29/2012 CBC 0227843 MCH 31.2 pg 11/29/2012 CBC 5316836 MCHC 33.7 g/dL 11/29/2012 CBC 1973658 PLT 253 10e9/L 11/29/2012 CBC 1472594 MPV 11.8 fL 11/29/2012 CBC 7725554 LARA % 54.9 % 11/29/2012 CBC 3141699 LY % 29.0 % 11/29/2012 CBC 6398045 MON % 10.4 % 11/29/2012 CBC 3156464 EOS % 5.1 % 11/29/2012 CBC 8182400 BASO % 0.6 % 11/29/2012 CBC 7959804 RDW 13.8 % 11/29/2012 CBC 7082336 ABS LARA 4.61 10e9/L 11/29/2012 CBC 3210213 ABS LYMPH 2.44 10e9/L 11/29/2012 CBC 2776128 ABS MONO 0.87 10e9/L 11/29/2012 CBC 6396885 ABS EOS 0.43 10e9/L 11/29/2012 CBC 4627626 ABS BASO 0.05 10e9/L 11/29/2012 CBC 4271021 RDW-SD 45.9 fL 11/29/2012 CHEM 14 0935186 AST 25 U/L 11/29/2012 CHEM 14 3394756 ALT 26 IU/L 11/29/2012 CHEM 14 6569225 BUN 25 MG/DL 11/29/2012 CHEM 14 8134885 ALBUMIN 4.4 GM/DL 11/29/2012 CHEM 14 9263936 CHLORIDE 106 MMOL/L 11/29/2012 CHEM 14 1580153 BILI TOT 0.4 MG/DL 11/29/2012 CHEM 14 7507015 ALK PHOS 86 U/L 11/29/2012 CHEM 14 5525823 SODIUM 141 MMOL/L 11/29/2012 CHEM 14 0778300 CREATININE 0.80 MG/DL 11/29/2012 CHEM 14 3045078 CALCIUM 9.7 MG/DL 11/29/2012 CHEM 14 1410062 POTASSIUM 4.0 MMOL/L 11/29/2012 CHEM 14 0815937 PROT TOT 6.6 GM/DL 11/29/2012 CHEM 14 7706266 GLUCOSE 112 MG/DL 11/29/2012 CHEM 14 5489880 BICARB 29 MMOL/L 11/29/2012 CHEM 14 2860754 ANION GAP 6 MEQ/L 11/29/2012 A1C HPLC 9556773 A1C HPLC 48898-4 5.5 % 11/29/2012 LIPID GRP HDL TEST 54 MG/DL 11/29/2012 LIPID GRP TRIG 77 MG/DL 11/29/2012 LIPID GRP TEST LDL 78 MG/DL 11/29/2012 LIPID GRP CHOL 147 MG/DL 11/29/2012 LIPID GRP RCHOL/HDL 2.72 RATIO 11/29/2012 FREE T4 6254298 FREE T4 1.23 NG/DL 11/29/2012 GFR CALC 8190372 GFR AA >60 ML/MIN 11/29/2012 GFR CALC 9160170 GFR NON-AA >60 ML/MIN 11/29/2012 CHEM 14 3163975 AST 23 U/L 08/07/2012 CHEM 14 7655906 ALT 34 IU/L 08/07/2012 CHEM 14 9411478 BUN 26 MG/DL 08/07/2012 CHEM 14 6504517 ALBUMIN 4.4 GM/DL 08/07/2012 CHEM 14 4213503 CHLORIDE 105 MMOL/L 08/07/2012 CHEM 14 7055080 BILI TOT 0.5 MG/DL 08/07/2012 CHEM 14 0192500 ALK PHOS 79 U/L 08/07/2012 CHEM 14 6630780 SODIUM 140 MMOL/L 08/07/2012 CHEM 14 2028856 CREATININE 0.71 MG/DL 08/07/2012 CHEM 14 8752105 CALCIUM 10.4 MG/DL 08/07/2012 CHEM 14 3391702 POTASSIUM 3.8 MMOL/L 08/07/2012 CHEM 14 8793930 PROT TOT 6.8 GM/DL 08/07/2012 CHEM 14 0050635 GLUCOSE 104 MG/DL 08/07/2012 CHEM 14 7782383 BICARB 27 MMOL/L 08/07/2012 CHEM 14 4857661 ANION GAP 8 MEQ/L 08/07/2012 A1C HPLC 9674934 A1C HPLC 65968-7 5.4 % 08/07/2012 FREE T4 3035099 FREE T4 1.11 NG/DL 08/07/2012 LIPID GRP HDL TEST 50 MG/DL 08/07/2012 LIPID GRP TRIG 127 MG/DL 08/07/2012 LIPID GRP TEST LDL 93 MG/DL 08/07/2012 LIPID GRP CHOL 168 MG/DL 08/07/2012 LIPID GRP RCHOL/HDL 3.36 RATIO 08/07/2012 CBC 0052644 WBC 8.7 10e9/L 08/07/2012 CBC 9912413 RBC 4.67 10e12/L 08/07/2012 CBC 9363855 HGB 14.4 g/dL 08/07/2012 CBC 4658582 HCT DET 42.8 % 08/07/2012 CBC 8206311 MCV 91.6 fL 08/07/2012 CBC 5646583 MCH 30.8 pg 08/07/2012 CBC 4884000 MCHC 33.6 g/dL 08/07/2012 CBC 2017532 PLT 271 10e9/L 08/07/2012 CBC 1202718 MPV 12.3 fL 08/07/2012 CBC 9088371 LARA % 50.6 % 08/07/2012 CBC 1420708 LY % 34.9 % 08/07/2012 CBC 0022474 MON % 9.1 % 08/07/2012 CBC 5099992 EOS % 5.1 % 08/07/2012 CBC 4288945 BASO % 0.3 % 08/07/2012 CBC 6267520 RDW 13.6 % 08/07/2012 CBC 4887441 ABS LARA 4.40 10e9/L 08/07/2012 CBC 7587032 ABS LYMPH 3.04 10e9/L 08/07/2012 CBC 3782023 ABS MONO 0.79 10e9/L 08/07/2012 CBC 4574736 ABS EOS 0.44 10e9/L 08/07/2012 CBC 1400664 ABS BASO 0.03 10e9/L 08/07/2012 CBC 6724164 RDW-SD 44.1 fL 08/07/2012 TSH 1708977 TSH 7.419 uIU/ML 08/07/2012 GFR CALC 3360253 GFR AA >60 ML/MIN 08/07/2012 GFR CALC 9741878 GFR NON-AA >60 ML/MIN 08/07/2012 A1C HPLC 4262874 A1C HPLC 80179-9 5.3 % 02/21/2012 TSH 6618375 TSH 0.832 uIU/ML 02/16/2012 FREE T4 5576141 FREE T4 1.04 NG/DL 02/16/2012 GFR CALC 9016335 GFR AA >60 ML/MIN 02/16/2012 GFR CALC 0397916 GFR NON-AA >60 ML/MIN 02/16/2012 BMP 4590924 GLUCOSE 112 MG/DL 02/16/2012 BMP 6288534 CREATININE 0.65 MG/DL 02/16/2012 BMP 4987668 BUN 17 MG/DL 02/16/2012 BMP 8368637 SODIUM 144 MMOL/L 02/16/2012 BMP 0448987 POTASSIUM 4.0 MMOL/L 02/16/2012 BMP 0774971 CHLORIDE 107 MMOL/L 02/16/2012 BMP 6696736 BICARB 29 MMOL/L 02/16/2012 BMP 4183223 ANION GAP 8 MEQ/L 02/16/2012 BMP 4949816 CALCIUM 9.5 MG/DL 02/16/2012 CBC 1771563 WBC 7.1 10e9/L 02/16/2012 CBC 7666115 RBC 4.47 10e12/L 02/16/2012 CBC 2954456 HGB 13.5 g/dL 02/16/2012 CBC 0591993 HCT DET 40.7 % 02/16/2012 CBC 4111359 MCV 91.1 fL 02/16/2012 CBC 2969344 MCH 30.2 pg 02/16/2012 CBC 0757179 MCHC 33.2 g/dL 02/16/2012 CBC 9074901 PLT 238 10e9/L 02/16/2012 CBC 1866256 MPV 11.4 fL 02/16/2012 CBC 5443652 LARA % 55.7 % 02/16/2012 CBC 3518020 LY % 29.6 % 02/16/2012 CBC 2764100 MON % 9.2 % 02/16/2012 CBC 7398846 EOS % 5.1 % 02/16/2012 CBC 7612797 BASO % 0.4 % 02/16/2012 CBC 3771852 RDW 13.0 % 02/16/2012 CBC 0964715 ABS LARA 3.95 10e9/L 02/16/2012 CBC 6126966 ABS LYMPH 2.10 10e9/L 02/16/2012 CBC 4188093 ABS MONO 0.65 10e9/L 02/16/2012 CBC 8773386 ABS EOS 0.36 10e9/L 02/16/2012 CBC 0141238 ABS BASO 0.03 10e9/L 02/16/2012 CBC 3458052 RDW-SD 42.4 fL 02/16/2012 URINALYSIS NONAUTO W/O SCOPE 32065 Specific [place] 1.015 DateTime(Free Text in Aprima) URINALYSIS NONAUTO W/O SCOPE 92103 PH 7 DateTime(Free Text in Aprima) URINALYSIS NONAUTO W/O SCOPE 75270 GLUCOSE neg DateTime(Free Text in Aprima) URINALYSIS NONAUTO W/O SCOPE 32752 Protein 1+ DateTime(Free Text in Aprima) URINALYSIS NONAUTO W/O SCOPE 96070 Blood neg DateTime(Free Text in Aprima) URINALYSIS NONAUTO W/O SCOPE 51416 Bilirubin neg DateTime(Free Text in Aprima) URINALYSIS NONAUTO W/O SCOPE 32250 Ketones neg DateTime(Free Text in Aprima) URINALYSIS NONAUTO W/O SCOPE 13098 Urobilinogen neg DateTime(Free Text in Aprima) URINALYSIS NONAUTO W/O SCOPE 61605 Nitrite postive DateTime(Free Text in Aprima) URINALYSIS NONAUTO W/O SCOPE 68261 Leukocytes 3+ DateTime(Free Text in Aprima) URINALYSIS NONAUTO W/O SCOPE 85985 Specific [place] 1.030 DateTime(Free Text in Aprima) URINALYSIS NONAUTO W/O SCOPE 36602 PH 6 DateTime(Free Text in Aprima) URINALYSIS NONAUTO W/O SCOPE 14274 GLUCOSE neg DateTime(Free Text in Aprima) URINALYSIS NONAUTO W/O SCOPE 57031 Protein neg DateTime(Free Text in Aprima) URINALYSIS NONAUTO W/O SCOPE 06090 Blood neg DateTime(Free Text in Aprima) URINALYSIS NONAUTO W/O SCOPE 35100 Bilirubin neg DateTime(Free Text in Aprima) URINALYSIS NONAUTO W/O SCOPE 66814 Ketones neg DateTime(Free Text in Aprima) URINALYSIS NONAUTO W/O SCOPE 18202 Urobilinogen neg DateTime(Free Text in Aprima) URINALYSIS NONAUTO W/O SCOPE 81941 Nitrite neg DateTime(Free Text in Aprima) URINALYSIS NONAUTO W/O SCOPE 81640 Leukocytes trace DateTime(Free Text in Aprima) URINALYSIS NONAUTO W/O SCOPE 21601 Specific [place] 1.005 DateTime(Free Text in Aprima) URINALYSIS NONAUTO W/O SCOPE 87623 PH 5 DateTime(Free Text in Aprima) URINALYSIS NONAUTO W/O SCOPE 46883 GLUCOSE neg DateTime(Free Text in Aprima) URINALYSIS NONAUTO W/O SCOPE 48937 Protein neg DateTime(Free Text in Aprima) URINALYSIS NONAUTO W/O SCOPE 98014 Blood neg DateTime(Free Text in Aprima) URINALYSIS NONAUTO W/O SCOPE 70477 Bilirubin neg DateTime(Free Text in Aprima) URINALYSIS NONAUTO W/O SCOPE 20795 Ketones neg DateTime(Free Text in Aprima) URINALYSIS NONAUTO W/O SCOPE 84394 Urobilinogen neg DateTime(Free Text in Aprima) URINALYSIS NONAUTO W/O SCOPE 06696 Nitrite neg DateTime(Free Text in Aprima) URINALYSIS NONAUTO W/O SCOPE 60498 Leukocytes neg DateTime(Free Text in Aprima) UA 38149 Specific [place] 1.030 DateTime(Free Text in Aprima) UA 81806 PH 5 DateTime(Free Text in Aprima) UA 66007 GLUCOSE neg DateTime(Free Text in Aprima) UA 86227 Protein trace DateTime(Free Text in Aprima) UA 03946 Blood large DateTime(Free Text in Aprima) UA 03101 Bilirubin neg DateTime(Free Text in Aprima) UA 32753 Ketones neg DateTime(Free Text in Aprima) UA 98304 Urobilinogen neg DateTime(Free Text in Aprima) UA 26558 Nitrite neg DateTime(Free Text in Aprima) UA 81261 Leukocytes large DateTime(Free Text in ) Review of Systems System Result Effective Dates Constitutional recent illness 03/14/2017 Constitutional No anorexia [...] Result Effective Dates Notes Full Exam - ENT Constitutional general appearance [...] accomodation 11/10/2011 None Full Exam - General 1995 [...] edema 04/25/2011 None Procedures Procedure Codes Date TRIAMCINOLONE ACET INJ NOS CPT-4: G3249Dgbpzxb 03/14/2017 ROCEPHIN, PER 250 MG CPT-4: O1208Scgxuhw 03/14/2017 DESTRUCT PREMALG LESION CPT-4: 47182Qysgntw 12/05/2016 DESTRUCT PREMALG LES 2-14 CPT-4: 25493Fpxnqpe 12/05/2016 URINALYSIS NONAUTO W/O SCOPE CPT-4: 23108Npogpvt 11/28/2016 ROCEPHIN, PER 250 MG CPT-4: V2999Ckxtsna 11/28/2016 PPPS, SUBSEQ VISIT CPT-4: V5093Himpppp 11/07/2016 THER/PROPH/DIAG INJ SC/IM CPT-4: 57750Epwvwrv 11/07/2016 TRIAMCINOLONE ACET INJ NOS CPT-4: V4559Gqzxuby 11/07/2016 ROCEPHIN, PER 250 MG CPT-4: U1570Pwdhfgy 11/07/2016 THER/PROPH/DIAG INJ SC/IM CPT-4: 12154Moeyjlr 08/15/2016 TRIAMCINOLONE ACET INJ NOS CPT-4: U1134Itsdwbo 08/15/2016 ROCEPHIN, PER 250 MG CPT-4: Q4535Tzysnov 08/15/2016 URINALYSIS NONAUTO W/O SCOPE CPT-4: 47541Xihxsmg 05/05/2016 ROCEPHIN, PER 250 MG CPT-4: G4370Bpqaymu 12/07/2015 TRIAMCINOLONE ACET INJ NOS CPT-4: R1367Kijsarc 11/24/2015 ROCEPHIN, PER 250 MG CPT-4: A1174Aafsoto 11/24/2015 THER/PROPH/DIAG INJ SC/IM CPT-4: 57796Ncabltj 11/24/2015 THER/PROPH/DIAG INJ SC/IM CPT-4: 74835Jiqybws 08/27/2015 KETOROLAC TROMETHAMINE INJ CPT-4: J8956Kdtbkii 08/27/2015 PROMETHAZINE HCL INJECTION CPT-4: J1651Jwylqnt 08/27/2015 THER/PROPH/DIAG INJ SC/IM CPT-4: 43846Dvnbylg 08/10/2015 TRIAMCINOLONE ACET INJ NOS CPT-4: Y7042Ptfspoj 08/10/2015 ROCEPHIN, PER 250 MG CPT-4: L4923Vopogvx 08/10/2015 C WOUN RTS (CULTURE OTHR SPECIMN AEROBIC) CPT-4: 10102Ndjusbu 07/28/2015 THER/PROPH/DIAG INJ SC/IM CPT-4: 79367Qbuzfpi 03/19/2015 TRIAMCINOLONE ACET INJ NOS CPT-4: V8182Hqfmcrp 03/19/2015 ROCEPHIN, PER 250 MG CPT-4: X1286Wumvjbf 06/23/2014 TRIAMCINOLONE ACET INJ NOS CPT-4: P6971Xmapmdv 06/23/2014 INJ TRIGGER POINT 1/2 MUSCL CPT-4: 33712Cxftfsa 06/05/2014 URINALYSIS NONAUTO W/O SCOPE CPT-4: 26742Ypdtber 02/11/2014 URINALYSIS NONAUTO W/O SCOPE CPT-4: 30097Pnotuxx 10/15/2013 ROCEPHIN, PER 250 MG CPT-4: U2605Jdgkakf 09/24/2013 THER/PROPH/DIAG INJ SC/IM CPT-4: 95554Khcbjaq 09/19/2013 ROCEPHIN, PER 250 MG CPT-4: Y6258Tvyvqul 09/19/2013 PRESCRIP TRANSMIT VIA ERX SY CPT-4: L5385Hjacxhk 08/05/2013 ROCEPHIN, PER 250 MG CPT-4: Y0230Bewksco 07/10/2013 THER/PROPH/DIAG INJ SC/IM CPT-4: 13886Dpjlicl 07/10/2013 TRIAMCINOLONE ACET INJ NOS CPT-4: T6097Puxodya 07/10/2013 PRESCRIP TRANSMIT VIA ERX SY CPT-4: N1664Urqlwvx 07/10/2013 55044 EST. PATIENT, LEVEL III CPT-4: 99206Enpsehw 06/03/2013 PRESCRIP TRANSMIT VIA ERX SY CPT-4: Z4346Ykgtcmf 06/03/2013 PRESCRIP TRANSMIT VIA ERX SY CPT-4: G6972Mbddggg 05/07/2013 ROUTINE VENIPUNCTURE CPT-4: 97015Zwipsyu 04/30/2013 ROUTINE VENIPUNCTURE CPT-4: 89984Jgyiyne 11/29/2012 TRIAMCINOLONE ACET INJ NOS CPT-4: Y6667Kxuhtfq 09/24/2012 THER/PROPH/DIAG INJ SC/IM CPT-4: 90113Vqeolpf 09/24/2012 URINALYSIS NONAUTO W/O SCOPE CPT-4: 90161Kpyyxjs 09/24/2012 PRESCRIP TRANSMIT VIA ERX SY CPT-4: R8984Fdaugbv 09/24/2012 PRESCRIP TRANSMIT VIA ERX SY CPT-4: C8534Dhmywkx 09/10/2012 PRESCRIP TRANSMIT VIA ERX SY CPT-4: K5400Qycfuib 08/08/2012 ROUTINE VENIPUNCTURE CPT-4: 64659Jorqqyq 08/07/2012 ROUTINE VENIPUNCTURE CPT-4: 17013Kguczqk 02/16/2012 URINALYSIS NONAUTO W/O SCOPE CPT-4: 61549Etqbeww 02/15/2012 ROCEPHIN, PER 250 MG CPT-4: F5212Dfoixqz 02/15/2012 PRESCRIP TRANSMIT VIA ERX SY CPT-4: B2102Bxsdrbp 02/15/2012 ROUTINE VENIPUNCTURE CPT-4: 42081Rmqcmfp 11/08/2011 ROCEPHIN, PER 250 MG CPT-4: L3932Opqxica 07/14/2011 THER/PROPH/DIAG INJ SC/IM CPT-4: 35863Yppqocq 07/14/2011 Influenza Virus Vaccine, Split Virus, >3 Yrs, IM CPT-4: 96082Xyaphur 05/23/2011 IMMUNIZATION ADMIN CPT-4: 31477Jnqrpww 05/23/2011 THER/PROPH/DIAG INJ SC/IM CPT-4: 14161Lnjwqyb 05/03/2011 ROCEPHIN, PER 250 MG CPT-4: B1015Rhrggze 05/03/2011 TRIAMCINOLONE ACET INJ NOS CPT-4: A2316Ksecuav 05/03/2011 Vital Signs Date Vital 03/14/2017 Blood Pressure 1: 146/82 Code: 8480-6 BMI: 30.9 Code: 31170-4 Heart Rate 1: 64 bpm Height: 4'11" SpO2: 94% Weight: 153 lbs 02/20/2017 Blood Pressure 1: 142/80 Code: 8480-6 BMI: 30.9 Code: 50232-5 Heart Rate 1: 75 bpm Height: 4'11" SpO2: 97% Weight: 153 lbs 02/06/2017 Blood Pressure 1: 138/90 Code: 8480-6 BMI: 31.5 Code: 68906-8 Heart Rate 1: 61 bpm Height: 4'11" SpO2: 98% Weight: 156 lbs 12/05/2016 Blood Pressure 1: 122/72 Code: 8480-6 Heart Rate 1: 59 bpm Height: 4'11" SpO2: 98% Weight: 11/28/2016 Blood Pressure 1: 154/86 Code: 8480-6 BMI: 31.3 Code: 31911-6 Heart Rate 1: 64 bpm Height: 4'11" SpO2: 94% Temperature: 36.2 (C) / 97.2 (F) Weight: 155 lbs 11/07/2016 Blood Pressure 1: 128/64 Code: 8480-6 BMI: 31.5 Code: 85795-3 Heart Rate 1: 59 bpm Height: 4'11" SpO2: 97% Weight: 156 lbs 08/15/2016 Blood Pressure 1: 110/62 Code: 8480-6 BMI: 31.5 Code: 87367-6 Heart Rate 1: 76 bpm Height: 4'11" SpO2: 97% Weight: 156 lbs 06/07/2016 Blood Pressure 1: 120/80 Code: 8480-6 BMI: 32.9 Code: 29227-5 Heart Rate 1: 63 bpm Height: 4'11" SpO2: 93% Temperature: 36.5 (C) / 97.7 (F) Weight: 163 lbs 03/15/2016 Blood Pressure 1: 90/42 Code: 8480-6 Heart Rate 1: 65 bpm SpO2: 94% 03/14/2016 Blood Pressure 1: 188/110 Code: 8480-6 Heart Rate 1: 68 bpm SpO2: 96% 02/22/2016 Blood Pressure 1: 158/80 Code: 8480-6 BMI: 32.7 Code: 64398-5 Heart Rate 1: 71 bpm Height: 4'11" SpO2: 95% Weight: 162 lbs 12/07/2015 Blood Pressure 1: 140/88 Code: 8480-6 BMI: 32.9 Code: 92485-8 Heart Rate 1: 99 bpm Height: 4'11" SpO2: 94% Temperature: 35.9 (C) / 96.6 (F) Weight: 163 lbs 11/24/2015 Blood Pressure 1: 144/78 Code: 8480-6 BMI: 33.7 Code: 88977-6 Heart Rate 1: 60 bpm Height: 4'11" SpO2: 98% Temperature: 36.6 (C) / 97.9 (F) Weight: 167 lbs 08/27/2015 Blood Pressure 1: 164/82 Code: 8480-6 BMI: 32.3 Code: 86661-4 Heart Rate 1: 60 bpm Height: 4'11" SpO2: 93% Weight: 160 lbs 08/10/2015 Blood Pressure 1: 130/60 Code: 8480-6 BMI: 32.5 Code: 55593-9 Heart Rate 1: 64 bpm Height: 4'11" SpO2: 97% Weight: 161 lbs 07/28/2015 Blood Pressure 1: 124/68 Code: 8480-6 BMI: 32.5 Code: 93194-5 Heart Rate 1: 69 bpm Height: 4'11" SpO2: 97% Weight: 161 lbs 06/11/2015 Blood Pressure 1: 148/80 Code: 8480-6 BMI: 32.9 Code: 38895-5 Heart Rate 1: 70 bpm Height: 4'11" SpO2: 94% Weight: 163 lbs 03/19/2015 Blood Pressure 1: 150/102 Code: 8480-6 Blood Pressure 2: 152/92 Code: 8480-6 BMI: 32.5 Code: 34187-3 Heart Rate 1: 71 bpm Height: 4'11" SpO2: 96% Weight: 161 lbs 01/07/2015 Blood Pressure 1: 126/84 Code: 8480-6 Heart Rate 1: 80 bpm Height: 4'11" 09/23/2014 Blood Pressure 1: 112/72 Code: 8480-6 BMI: 33.9 Code: 89528-9 Heart Rate 1: 72 bpm Height: 4'11" Weight: 168 lbs 08/05/2014 Blood Pressure 1: 140/86 Code: 8480-6 BMI: 33.3 Code: 15399-6 Height: 4'11" Weight: 165 lbs 06/23/2014 Blood Pressure 1: 132/70 Code: 8480-6 BMI: 32.9 Code: 47812-2 Heart Rate 1: 58 bpm Height: 4'11" Temperature: 36.0 (C) / 96.8 (F) Weight: 163 lbs 06/05/2014 Blood Pressure 1: 121/85 Code: 8480-6 BMI: 34.3 Code: 84616-7 Height: 4'11" Weight: 170 lbs 04/03/2014 Blood Pressure 1: 128/80 Code: 8480-6 Heart Rate 1: 88 bpm Weight: 167 lbs 03/07/2014 Blood Pressure 1: 122/82 Code: 8480-6 BMI: 33.9 Code: 44851-9 Heart Rate 1: 68 bpm Height: 4'11" Weight: 168 lbs 11/21/2013 Blood Pressure 1: 100/58 Code: 8480-6 BMI: 33.7 Code: 29782-2 Heart Rate 1: 64 bpm Height: 4'11" Weight: 167 lbs 09/24/2013 Blood Pressure 1: 148/88 Code: 8480-6 Heart Rate 1: 68 bpm Weight: 09/19/2013 Blood Pressure 1: 120/80 Code: 8480-6 BMI: 33.9 Code: 59829-1 Heart Rate 1: 80 bpm Height: 4'11" Temperature: 36.9 (C) / 98.5 (F) Weight: 168 lbs 08/05/2013 Blood Pressure 1: 128/80 Code: 8480-6 BMI: 34.3 Code: 92349-1 Heart Rate 1: 64 bpm Height: 4'11" Temperature: 36.2 (C) / 97.2 (F) Weight: 170 lbs 07/10/2013 Blood Pressure 1: 120/84 Code: 8480-6 BMI: 36.0 Code: 84671-6 Heart Rate 1: 90 bpm Height: 4'11" SpO2: 97% Temperature: 36.8 (C) / 98.2 (F) Weight: 178 lbs 06/03/2013 Blood Pressure 1: 136/94 Code: 8480-6 BMI: 34.7 Code: 09573-5 Heart Rate 1: 68 bpm Height: 4'11" Temperature: 36.7 (C) / 98.0 (F) Weight: 172 lbs 05/13/2013 Blood Pressure 1: 132/90 Code: 8480-6 Heart Rate 1: 68 bpm 05/07/2013 Blood Pressure 1: 168/100 Code: 8480-6 BMI: 34.3 Code: 19917-9 Heart Rate 1: 76 bpm Height: 4'11" Weight: 170 lbs 12/03/2012 Blood Pressure 1: 142/78 Code: 8480-6 BMI: 33.5 Code: 09833-3 Heart Rate 1: 76 bpm Height: 4'11" Weight: 166 lbs 09/24/2012 Blood Pressure 1: 116/70 Code: 8480-6 Heart Rate 1: 68 bpm Respiratory Rate: 16 bpm Temperature: 36.9 (C) / 98.4 (F) Weight: 162 lbs 09/10/2012 Blood Pressure 1: 116/80 Code: 8480-6 BMI: 33.7 Code: 49945-9 Heart Rate 1: 76 bpm Height: 4'11" [...] 1: 149/85 Code: 8480-6 BMI: 32.9 Code: 05550-2 Heart Rate 1: 79 bpm Height: 4'11" Weight: 164 lbs 05/03/2011 Blood Pressure 1: 122/79 Code: 8480-6 BMI: 30.8 Code: 15170-4 Heart Rate 1: 72 bpm Height: 5'1" Weight: 163 lbs 04/25/2011 Blood Pressure 1: 137/84 Code: 8480-6 BMI: 31.0 Code: 48761-2 Heart Rate 1: 63 bpm Height: 5'1" Respiratory Rate: 20 bpm Weight: 164 lbs Functional Status No Functional Status data History of Present Illness Symptom Name Status Result Effective Date Notes sinus congestion Onset and Resolution sudden in [...] days ago 02/15/2012 while visiting mother in [place] had uti and was put on pyridum [...] Quality chronic 08/01/2011 states went shopping on [employer] over night without taking any of medications [...] data Encounters Encounter Performer Location Codes Date ([id number]) 64569 EST. PATIENT, LEVEL III Diagnosis: Acute recurrent maxillary sinusitis[ICD10: J01.01] Shahida Goldman MD, [facility] CPT-4: 21553 03/14/2017 75234 EST. PATIENT, LEVEL IV Diagnosis: Epigastric pain[ICD10: R10.13] Diagnosis: Left upper quadrant pain[ICD10: R10.12] Diagnosis: Left lower quadrant pain[ICD10: R10.32] Isabelle Goldman MD, [facility] CPT-4: 90034 02/20/2017 [id number]) 03175 EST. PATIENT, LEVEL IV Diagnosis: Generalized anxiety disorder[ICD10: F41.1] Diagnosis: Major depressive disorder, recurrent, moderate[ICD10: F33.1] Diagnosis: Left upper quadrant pain[ICD10: R10.12] Diagnosis: Epigastric pain[ICD10: R10.13] Diagnosis: Actinic keratosis[ICD10: L57.0] Melba Goldman MD, [facility] CPT-4: 19803 02/06/2017 [id number]) 73836 EST. PATIENT, LEVEL III Diagnosis: Actinic keratosis[ICD10: L57.0] Diagnosis: Major depressive disorder, recurrent, moderate[ICD10: F33.1] Melba Goldman MD, [facility] CPT-4: 86235 12/05/2016 ([id number]) 51242 EST. PATIENT, LEVEL III Diagnosis: Acute recurrent maxillary sinusitis[ICD10: J01.01] Diagnosis: Dysuria[ICD10: R30.0] Shahida Goldman MD, [facility] CPT-4: 33808 11/28/2016 32810 EST. PATIENT, LEVEL IV Diagnosis: Other acute sinusitis[ICD10: J01.80] Diagnosis: Acute laryngopharyngitis[ICD10: J06.0] Diagnosis: Other allergic rhinitis[ICD10: J30.89] Isabelle Goldman MD, [facility] CPT- 4: 43842 08/15/2016 ([id number]) 76679 EST. PATIENT, LEVEL III Diagnosis: Acute recurrent maxillary sinusitis[ICD10: J01.01] Diagnosis: Low back pain[ICD10: M54.5] Shahida Goldman MD, [facility] CPT-4: 84174 06/07/2016 ([id number]) Miscellaneous no charge Diagnosis: Essential (primary) hypertension[ICD10: I10] Shahida Goldman MD, [facility] CPT-4: 76662 03/15/2016 38125 EST. PATIENT, LEVEL IV Diagnosis: Essential (primary) hypertension[ICD10: I10] Diagnosis: Headache[ICD10: R51] Diagnosis: Generalized anxiety disorder[ICD10: F41.1] Shahida Goldman MD, [facility] CPT-4: 04273 03/14/2016 18530 EST. PATIENT, LEVEL III Diagnosis: Laceration without foreign body, left lower leg, initial encounter[ICD10: S81.812A] Isabelle Goldman MD, [facility] CPT-4: 96161 02/22/2016 ([id number]) 60140 EST. PATIENT, LEVEL III Diagnosis: Acute recurrent maxillary sinusitis[ICD10: J01.01] Diagnosis: Cough[ICD10: R05] Diagnosis: Allergic rhinitis due to pollen[ICD10: J30.1] Shahida Goldman MD, [facility] CPT-4: 46579 12/07/2015 ([id number]) 32130 EST. PATIENT, LEVEL IV Diagnosis: Essential (primary) hypertension[ICD10: I10] Diagnosis: Acute recurrent maxillary sinusitis[ICD10: J01.01] Diagnosis: Generalized anxiety disorder[ICD10: F41.1] Diagnosis: Cervicalgia[ICD10: M54.2] Diagnosis: Generalized intra-abdominal and pelvic swelling, mass and lump[ICD10: R19.07] Melba Goldman MD, [facility] CPT-4: 28040 11/24/2015 04316 EST. PATIENT, LEVEL III Diagnosis: Other migraine, intractable, without status migrainosus[ICD10: G43.819] Isabelle Goldman MD, [facility] CPT-4: 43811 08/27/2015 42391 EST. PATIENT, LEVEL III Diagnosis: Acute recurrent maxillary sinusitis[ICD10: J01.01] Diagnosis: Candidal stomatitis[ICD10: B37.0] Diagnosis: Acute laryngopharyngitis[ICD10: J06.0] Isabelle Goldman MD, [facility] CPT- 4: 49570 08/10/2015 37658 EST. PATIENT, LEVEL III Diagnosis: Superficial foreign body of left hand, initial encounter[ICD10: S60.552A] Melba Goldman MD, [facility] CPT-4: 13012 07/28/2015 ([id number]) 96055 EST. PATIENT, LEVEL III Diagnosis: Essential (primary) hypertension[ICD10: I10] Diagnosis: Tinea cruris[ICD10: B35.6] Diagnosis: Abnormal levels of other serum enzymes[ICD10: R74.8] Shahida Goldman MD, [facility] CPT-4: 74642 06/11/2015 ([id number]) 77810 EST. PATIENT, LEVEL IV Diagnosis: ESSENTIAL HYPERTENSION[ICD9: 401.9] Diagnosis: Hypothyroid[ICD9: 244.9] Diagnosis: ALLERGIC RHINITIS[ICD9: 477.9] Diagnosis: Anxiety[ICD9: 300.00] Diagnosis: Sleep apnea[ICD9: 780.57] Shahida Goldman MD, [facility] CPT-4: 51818 03/19/2015 ([id number]) 38856 EST. PATIENT, LEVEL III Diagnosis: ACUTE SINUSITIS[ICD9: 461.9] Celi Goldman MD, [facility] CPT-4: 56852 01/07/2015 ([id number]) 33045 EST. PATIENT, LEVEL III Diagnosis: Conjunctivitis[ICD9: 372.30] Shahida Goldman MD, [facility] CPT-4: 84081 09/23/2014 05653 EST. PATIENT, LEVEL II Diagnosis: Noninfected skin tear of leg[ICD9: 891.0] Shahida Goldman MD, [facility] CPT-4: 03824 08/05/2014 ([id number]) 51323 EST. PATIENT, LEVEL III Diagnosis: Chronic maxillary sinusitis[ICD9: 473.0] Shahida Goldman MD, [facility] CPT-4: 01546 06/23/2014 24908 EST. PATIENT, LEVEL II Diagnosis: Headache[ICD9: 784.0] Shahida Goldman MD, [facility] CPT-4: 93547 06/05/2014 ([id number]) 56152 EST. PATIENT, LEVEL III Diagnosis: Abrasion of right leg[ICD9: 916.0] Diagnosis: Headache[ICD9: 784.0] Diagnosis: ALLERGIC RHINITIS[ICD9: 477.9] Shahida Goldman MD, [facility] CPT-4: 85536 04/03/2014 71968 EST. PATIENT, LEVEL II Diagnosis: Tinea corporis[ICD9: 110.5] Diagnosis: Exposure to scabies[ICD9: V01.89] Shahida Goldman MD, [facility] CPT- 4: 82406 03/07/2014 ([id number]) 80657 EST. PATIENT, LEVEL III Diagnosis: ESSENTIAL HYPERTENSION[SNOMED: 01019663] Diagnosis: OSTEOARTH NOS-UNSPEC[ICD9: 715.90] Diagnosis: Lumbago[ICD9: 724.2] Diagnosis: Cervicalgia[ICD9: 723.1] Shahida Goldman MD, [facility] CPT-4: 42931 11/21/2013 ([id number]) 91407 EST. PATIENT, LEVEL III Diagnosis: DEPRESSIVE DISORDER NEC[ICD9: 311] Diagnosis: Paronychia[ICD9: 681.9] Melba Goldman MD, [facility] CPT-4: 82634 09/24/2013 ([id number]) 05876 EST. PATIENT, LEVEL III Diagnosis: Paronychia[ICD9: 681.9] Diagnosis: Cellulitis[ICD9: 682.9] Melba Goldman MD [facility] CPT-4: 22444 09/19/2013 ([id number]) 20713 EST. PATIENT, LEVEL III Diagnosis: Conjunctivitis[ICD9: 372.30] Diagnosis: Thrush[ICD9: 112.0] Shahida Goldman MD [facility] CPT-4: 04570 08/05/2013 ([id number]) 29269 EST. PATIENT, LEVEL III Diagnosis: ACUTE MAXILLARY SINUSITIS[ICD9: 461.0] Diagnosis: COUGH[ICD9: 786.2] Diagnosis: Insomnia[ICD9: 780.52] Diagnosis: ESOPHAGEAL REFLUX[ICD9: 530.81] Melba Goldman MD [facility] CPT-4: 08747 07/10/2013 ([id number]) Miscellaneous no charge Diagnosis: ESSENTIAL HYPERTENSION[SNOMED: 14957532] Melba Goldman MD [facility] CPT-4: 06488 05/13/2013 ([id number]) 40643 EST. PATIENT, LEVEL IV Diagnosis: ESSENTIAL HYPERTENSION[SNOMED: 18790914] Diagnosis: HYPOTHYROIDISM[ICD9: 244.9] Diagnosis: OSTEOARTH NOS-UNSPEC[ICD9: 715.90] Melba Goldman MD, [facility] CPT- 4: 37496 05/07/2013 ([id number]) 71539 EST. PATIENT, LEVEL IV Diagnosis: Osteoarthritis[ICD9: 715.90] Diagnosis: Knee pain, bilateral[ICD9: 719.46] Diagnosis: Hip pain[ICD9: 719.45] Melba Goldman MD, [facility] CPT-4: 06492 12/03/2012 ([id number]) 73180 EST. PATIENT, LEVEL III Diagnosis: Thrush[ICD9: 112.0] Melba Goldman MD, [facility] CPT-4: 46913 09/24/2012 ([id number]) 81479 EST. PATIENT, LEVEL IV Diagnosis: ESSENTIAL HYPERTENSION[SNOMED: 73466088] Diagnosis: Thrush[ICD9: 112.0] Diagnosis: Sleep apnea[ICD9: 780.57] Melba Goldman MD, [facility] CPT-4: 67549 09/10/2012 ([id number]) 92159 EST. PATIENT, LEVEL IV Diagnosis: Esophageal reflux[ICD9: 530.81] Diagnosis: Hypothyroid[ICD9: 244.9] Diagnosis: JOINT PAIN-MULT JOINTS[ICD9: 719.49] Diagnosis: ALLERGIC RHINITIS[ICD9: 477.9] Melba Goldman MD, [facility] CPT-4: 41928 08/08/2012 ([id number]) 76977 EST. PATIENT, LEVEL IV Diagnosis: Urinary frequency[ICD9: 788.41] Diagnosis: EDEMA[ICD9: 782.3] Diagnosis: HYPOTHYROIDISM[ICD9: 244.9] Diagnosis: Fatigue[ICD9: 780.79] Melba Goldman MD, [facility] CPT-4: 22153 02/15/2012 ([id number]) 90476 EST. PATIENT, LEVEL IV Diagnosis: Abdominal pain[ICD9: 789.00] Diagnosis: Fatigue[ICD9: 780.79] Diagnosis: Nausea[ICD9: 787.02] Melba Goldman MD, [facility] CPT-4: 86102 11/10/2011 23094 EST. PATIENT, LEVEL IV Diagnosis: ESSENTIAL HYPERTENSION[SNOMED: 18425037] Diagnosis: DIARRHEA[ICD9: 787.91] Diagnosis: DEPRESSIVE DISORDER NEC[ICD9: 311] Diagnosis: Irritable bowel disease[ICD9: 564.1] Melba Goldman MD, [facility] CPT- 4: 23245 08/01/2011 12949 EST. PATIENT, LEVEL III Diagnosis: ACUTE SINUSITIS[ICD9: 461.9] Diagnosis: Cough[ICD9: 786.2] Shahida Goldman MD, [facility] CPT-4: 23115 07/14/2011 55477 EST. PATIENT, LEVEL IV Diagnosis: VACCIN FOR INFLUENZA[ICD9: V04.81] Diagnosis: ESSENTIAL HYPERTENSION[SNOMED: 26039007] Diagnosis: GENERALIZED ANXIETY DISEASE[ICD9: 300.02] Diagnosis: SLEEP DISTURBANCES[ICD9: 780.50] Shahida Goldman MD, [facility] CPT- 4: 84889 05/23/2011 77835 EST. PATIENT, LEVEL III Diagnosis: ACUTE SINUSITIS[ICD9: 461.9] Diagnosis: ALLERGIC RHINITIS[ICD9: 477.9] Diagnosis: Cough[ICD9: 786.2] [facility] CPT-4: 37639 05/03/2011 43368 EST. PATIENT, LEVEL IV Diagnosis: ESSENTIAL HYPERTENSION[SNOMED: 39940916] Diagnosis: DEPRESSIVE DISORDER NEC[ICD9: 311] Diagnosis: Fatigue[ICD9: 780.79] [facility] CPT-4: 26907 04/25/2011 Plan of Care Planned Activity Notes Codes Status Date Visit Plan: Sinusitis - Pt has acute infection - pain in face, maxillary region, Pt informed to use decongestant, RX given to patient, sinus rinses also recommended. Call if symptoms do not show improvement. 03/14/2017 Patient Education: Patient Medication Summary Completed 03/14/2017 Appointment: Shahida Manzo WPtel: [phone] [phone] (15 min) Moderate 02/21/2017 Visit Plan: [...] - all of which can exacerbate esophageal reflux.The patient is to take medications as prescribed and call the office if the symptoms are not improving. 02/20/2017 Appointment: [phone] [facility] (30 min) Complex 02/20/2017 Patient Education: Patient Medication Summary Completed 02/20/2017 Visit Plan: Abdominal pain - liquid diet x 2 days, call on to let me know it if is not better - will prescribe a medication called flagyDepression - uncontrolled - Pt has been counseled about the diagnosis of depression, the potential causes, and risks associated with the diagnosis. The pt denies suicidal ideation, or plans. The patient has been counseled about treatment options, and understands the risks associated with treatment of depression, as well as the risks associated with NOT treating the depression.I believe the pt will benefit from medical intervention and an antidepressant has been appropriately prescribed for this patient.trintellix - 10mg one pill daily in the morning. stop lexapro and start on the trintellixSkin lesion - rx for efudex - pt instructed on use 02/06/2017 Appointment: Melba Goldman WPtel: [phone] [facility] (15 min) Moderate 02/06/2017 Patient Education: Patient Medication Summary Completed 02/06/2017 Visit Plan: Wound Instructions - Pt was instructed to keep the wound clean, wash with antibacterial soap, use triple antibiotic ointment, call if redness, pustular drainage, or any other acute concerns.Depression - uncontrolled - Pt has been counseled about the diagnosis of depression, the potential causes, and risks associated with the diagnosis. The pt denies suicidal ideation, or plans. The patient has been counseled about treatment options, and understands the risks associated with treatment of depression, as well as the risks associated with NOT treating the depression.I believe the pt will benefit from medical intervention and an antidepressant has been appropriately prescribed for this patient. 12/05/2016 Visit Plan: Wound Instructions - Pt was instructed to keep the wound clean, wash with antibacterial soap, use triple antibiotic ointment, call if redness, pustular drainage, or any other acute concerns.Depression - uncontrolled - Pt has been counseled about the diagnosis of depression, the potential causes, and risks associated with the diagnosis. The pt denies suicidal ideation, or plans. The patient has been counseled about treatment options, and understands the risks associated with treatment of depression, as well as the risks associated with NOT treating the depression.I believe the pt will benefit from medical intervention and an antidepressant has been appropriately prescribed for this patient. 12/05/2016 Appointment: Melba Goldman WPtel: [phone] [facility] Surgical Procedure 12/05/2016 Patient Education: Patient Medication Summary Completed 12/05/2016 Visit Plan: Sinusitis - Pt has acute infection - pain in face, maxillary region, Pt informed to use decongestant, RX given to patient, sinus rinses also recommended. Call if symptoms do not show improvement.Dysuria-culture urine 11/28/2016 Appointment: Shahida Manzo WPtel: [phone] [id number] (15 min) Moderate 11/28/2016 Patient Education: Patient [...] risk and to maintain independence in the home.Today we discussed the need for the patient to create paperwork for Advanced directives as well as for the patient to provide this office with a copy of her DOPA paperwork for health care surrogate.Sinusitis - Pt has acute infection - pain in face, maxillary region, Pt informed to use decongestant, RX given to patient, sinus rinses also recommended. Call if symptoms do not show improvement.Hypothyroidism - pt with chronic hypothyroidism, continue with current medication, will monitor pt to signs or symptoms of lack of adequate supplementation. Pt is to continue with current dose of medication unless directed otherwise. Check labs at regular intervals wither q 3 months or q 6 months based on previous levels of control. 11/07/2016 Appointment: Isabelle Orozco [facility]Ptel[phone] [facility] [facility] - Annual Wellness Visit 11/07/2016 Patient Education: Patient Medication Summary Completed 11/07/2016 Patient Education: Obesity Completed 11/07/2016 Visit Plan: Sinusitis - Pt has acute infection - pain in face, maxillary region, Pt informed to use decongestant, RX given to patient, sinus rinses also recommended. Call if symptoms do not show improvement.URI - Pt advised to increase fluids, vitamin C. Discussed natural and expected course of this diagnosis and need to alert me if symptoms do not follow expected course, or if any worse. RX sent to patient's pharmacy.Allergies - chronic - recommended pt to use allergy medication as prescribed. Pt has been counseled as to the appropriate use of the medication. Pt to call if allergy symptoms are not controlled with the medication.If using nasal spray, instructions as follows: Nasal spray- use twice daily, one spray per nostril twice daily, after 30 minutes, rinse out nose with saline spray.. Use opposite hand per nostril to spray in the nasal steroid allergy spray. 08/15/2016 Appointment: Isabelle Orozco WPtel: [facility] (15 min) Moderate 08/15/2016 Patient Education: Patient Medication Summary Completed 08/15/2016 Patient Education: Obesity Completed 08/15/2016 Visit Plan: Sinusitis - Pt has acute infection - pain in face, maxillary region, Pt informed to use decongestant, RX given to patient, sinus rinses also recommended. Call if symptoms do not show improvement.Chronic back pain-refill hydrocodone for prn breakthrough pain use. 06/07/2016 Appointment: Shahida Manzo WPtel: [phone] (10 min) Simple 06/07/2016 Patient Education: [...] the office next week for practitioner to review.The pt is to call for acute concerns.Discussed with Dr Goldman-patient to go to hospital for EKG, labs including cardiac enzymes Start edbarbi 40mg daily-dose given in the office today 03/14/2016 Appointment: Shahida Manzo WPtel: [phone] [phone] (15 min) Moderate 03/14/2016 Patient Education: Patient Medication Summary Completed 03/14/2016 Care Plan: COMPLETE CBC AUTOMATED LOINC : 73313-2 Pending 03/14/2016 Visit Plan: Cellulitis - The patient was instructed in appropriate wound care. The patient was instructed to use the antibiotic ointment as per RX. The patient is to call for any change in symptoms, increase in size of the lesion, increase in pain. 02/22/2016 Appointment: Isabelle Orozco WPtel: [phone] [facility] (15 min) Moderate 02/22/2016 Patient Education: Patient Medication Summary Completed 02/22/2016 Visit Plan: Sinusitis - Pt has acute infection - pain in face, maxillary region, Pt informed to use decongestant, RX given to patient, sinus rinses also recommended. Call if symptoms do not show improvement.Rocephin injection today in the office Allergies - chronic - recommended pt to use allergy medication as prescribed. Pt has been counseled as to the appropriate use of the medication. Pt to call if allergy symptoms are not controlled with the medication.If using nasal spray, instructions as follows: Nasal [...] diet. Pt has been encouraged to exercise daily.The pt has been advised to call the office if there are any acute concerns about change in blood pressure readings at home.Sinusitis - Pt has acute infection - pain in face, maxillary region, Pt informed to use decongestant, RX given to patient, sinus rinses also recommended. Call if symptoms do not show improvement.Cervicalgia - recommended pt to follow up with specialist [facility] - she needs to pursue treatment.Anxietly - medications unchanged.colonoscopy with dr. dai 11/24/2015 Appointment: [facility]el[phone] (30 min) Complex 11/24/2015 Patient Education: Patient Medication Summary Completed 11/24/2015 Patient Education: Obesity Completed 11/24/2015 Patient Education: Hypertension Completed 11/24/2015 Patient Education: .Cervicalgia Neck Pain Completed 11/24/2015 Care Plan: Referral Order SNOMED-CT : [id number] Ordered 11/24/2015 Visit Plan: Acute Migraine - [...] if any worse. RX sent to patient's pharmacy.Sinusitis - Pt has acute infection - pain in face, maxillary region, Pt informed to use decongestant, RX given to patient, sinus rinses also recommended. Call if symptoms do not show improvement.phenergan with codeine cough syrup called in to [...] 07/28/2015 Visit Plan: HTN-improved today-no change in medicationsTinea-start clotrimazole and diflucan Elevated ALT-check labs today to monitor 06/11/2015 Appointment: Shahida Manzo WPtel: [phone] (15 min) Moderate 06/11/2015 Patient Education: Patient Medication Summary Completed 06/11/2015 Patient Education: Hypertension Completed 06/11/2015 Visit Plan: Hypertension - elevated today but didn't take medication, otherwise well controlled - continue with current medications, continue with no added salt diet. Pt has been encouraged to exercise daily.The pt has been advised to call the office if there are any acute concerns about change in blood pressure readings at home.Hypothyroidism - pt with chronic hypothyroidism, continue with current medication, will monitor pt to signs or symptoms of lack of adequate supplementation. Pt is to continue with current dose of medication unless directed otherwise. Check labs at regular intervals wither q 3 months or q 6 months based on previous levels of control.Chronic Depression and anxiety - the pt has symptoms of chronic anxiety and depression that have NOT BEEN well controlled since the last office visit. The pt has expected periods of exacerbation with abatement of the symptoms with change in situational exposure. CROSS TAPER CYMBALTA TO LEXAPRO Allergies - chronic - recommended pt to use a llergy medication as prescribed. Pt has been counseled as to the appropriate use of the medication. Pt to call if allergy symptoms are not controlled with the medication.If using nasal spray, instructions as follows: Nasal spray- use twice daily, one spray per nostril twice daily, after 30 minutes, rinse out nose with saline spray.. Use opposite hand per nostril to spray in the nasal steroid allergy spray.KENALOG INJECTION TODAY IN THE OFFICE Sleep apnea-patient needs new CPAP-will contact [facility] 03/19/2015 Visit Plan: Hypertension - elevated today but didn't take medication, otherwise well controlled - continue with current medications, continue with no added salt diet. Pt has been encouraged to exercise daily.The pt has been advised to call the office if there are any acute concerns about change in blood pressure readings at home.Hypothyroidism - pt with chronic hypothyroidism, continue with current medication, will monitor pt to signs or symptoms of lack of adequate supplementation. Pt is to continue with current dose of medication unless directed otherwise. Check labs at regular intervals wither q 3 months or q 6 months based on previous levels of control.Chronic Depression and anxiety - the pt has symptoms of chronic anxiety and depression that have NOT BEEN well controlled since the last office visit. The pt has expected periods of exacerbation with abatement of the symptoms with change in situational exposure. CROSS TAPER CYMBALTA TO LEXAPRO Allergies - chronic - recommended pt to use a llergy medication as prescribed. Pt has been counseled as to the appropriate use of the medication. Pt to call if allergy symptoms are not controlled with the medication.If using nasal spray, instructions as follows: Nasal spray- use twice daily, one spray per nostril twice daily, after 30 minutes, rinse out nose with saline spray.. Use opposite hand per nostril to spray in the nasal steroid allergy spray.KENALOG INJECTION TODAY IN THE OFFICE Sleep apnea-patient needs new CPAP-will contact [facility] patient Pt reports that she uses her CPAP and feels like she gets benefit from use of her CPAP with improved energy. 03/19/2015 Visit Plan: Hypertension - elevated today but didn't take medication, otherwise well controlled - continue with current medications, continue with no added salt diet. Pt has been encouraged to exercise daily.The pt has been advised to call the office if there are any acute concerns about change in blood pressure readings at home.Hypothyroidism - pt with chronic hypothyroidism, continue with current medication, will monitor pt to signs or symptoms of lack of adequate supplementation. Pt is to continue with current dose of medication unless directed otherwise. Check labs at regular intervals wither q 3 months or q 6 months based on previous levels of control.Chronic Depression and anxiety - the pt has symptoms of chronic anxiety and depression that have NOT BEEN well controlled since the last office visit. The pt has expected periods of exacerbation with abatement of the symptoms with change in situational exposure. CROSS TAPER CYMBALTA TO LEXAPRO Allergies - chronic - recommended pt to use a llergy medication as prescribed. Pt has been counseled as to the appropriate use of the medication. Pt to call if allergy symptoms are not controlled with the medication.If using nasal spray, instructions as follows: Nasal spray- use twice daily, one spray per nostril twice daily, after 30 minutes, rinse out nose with saline spray.. Use opposite hand per nostril to spray in the nasal steroid allergy spray.KENALOG INJECTION TODAY IN THE OFFICE 03/19/2015 Visit Plan: Hypertension - elevated today but didn't take medication, otherwise well controlled - continue with current medications, continue with no added salt diet. Pt has been encouraged to exercise daily.The pt has been advised to call the office if there are any acute concerns about change in blood pressure readings at home.Hypothyroidism - pt with chronic hypothyroidism, continue with current medication, will monitor pt to signs or symptoms of lack of adequate supplementation. Pt is to continue with current dose of medication unless directed otherwise. Check labs at regular intervals wither q 3 months or q 6 months based on previous levels of control.Chronic Depression and anxiety - the pt has symptoms of chronic anxiety and depression that have NOT BEEN well controlled since the last office visit. The pt has expected periods of exacerbation with abatement of the symptoms with change in situational exposure. CROSS TAPER CYMBALTA TO LEXAPRO Allergies - chronic - recommended pt to use a llergy medication as prescribed. Pt has been counseled as to the appropriate use of the medication. Pt to call if allergy symptoms are not controlled with the medication.If using nasal spray, instructions as follows: Nasal spray- use twice daily, one spray per nostril twice daily, after 30 minutes, rinse out nose with saline spray.. Use opposite hand per nostril to spray in the nasal steroid allergy spray.KENALOG INJECTION TODAY IN THE OFFICE Sleep apnea-patient needs new CPAP-will contact [facility] Pt reports that she uses [...] place medication into affected eye four times dailyPt leaving Monday for cruise, Scopolamine patch prescription sent to pharmacy per pt request. 01/07/2015 Patient Education: Patient Medication Summary Completed 01/07/2015 Patient Education: [facility] - Saving AutoInj - [...] to the muscles today, and take an anti-inflammatory today unless otherwise contraindicated by renal function or other disease process. 06/05/2014 Appointment: Follow up 06/05/2014 Patient Education: Patient Medication Summary Completed 06/05/2014 Patient Education: .Cervicalgia Neck Pain Completed 06/05/2014 Visit Plan: Abrasion right leg-RX for keflexHeadache-much improved-monitor and call if does not resolveAllergies-continue medications and call if symptoms do not improve, or if any worse. 04/03/2014 Appointment: Follow up 04/03/2014 Patient Education: Patient Medication Summary Completed 04/03/2014 Visit Plan: Tinea-discussed natural and expected course of this diagnosis and to alert me if symtpoms do not follow expect course, or if any worse. RX sent to patient's pharmacy. Keep areas dryExposure to scabies-[facility]. 03/07/2014 Appointment: Melba Goldman WPtel: [facility] [place] rash 03/07/2014 Patient Education: Patient Medication Summary Completed 03/07/2014 Appointment: Lab Draw 02/11/2014 Patient Education: Patient Medication Summary Completed 02/11/2014 Visit Plan: Hypertension - well controlled - continue with current medications, continue with no added salt diet. Pt has been encouraged to exercise daily.The pt has been advised to call the office if there are any acute concerns about change in blood pressure readings at home.Ttndkbw-oumjiscmrye-jnnawtqd duragesic patch-appt with Dr Ortiz for pain management 11/21/2013 Appointment: Shahida Manzo WPtel: [facility]5 [phone] [place] Follow up 11/21/2013 Patient Education: Patient Medication Summary Completed 11/21/2013 Patient Education: Hypertension Completed 11/21/2013 Patient Education: .Cervicalgia Neck Pain Completed 11/21/2013 Appointment: Melba Goldman WPtel: [phone] [facility] Other 11/19/2013 Appointment: Melba Goldman WPtel: [phone] [facility] [place] Follow up 11/06/2013 Appointment: Melba Goldman WPtel: [phone] [facility] Lab Draw 10/15/2013 Patient Education: Patient [...] the risks associated with NOT treating the depression.I believe the pt will benefit from medical intervention and an antidepressant has been appropriately prescribed for this patient.ADD ABILIFY 2MG AT BEDTIME 09/24/2013 Appointment: Shahida Manzo WPtel: [facility] [address] Other 09/24/2013 Patient Education: Patient Medication Summary Completed 09/24/2013 Visit Plan: Paronychia/Cellulitis - continue with oral antibiotics as previously directed, return to clinic as previously directed, call for acute change in symptoms, worsening redness, warmth, discharge. 09/19/2013 Appointment: Melba Goldman WPtel: [facility] Other 09/19/2013 Patient Education: Patient Medication Summary Completed 09/19/2013 Visit Plan: Conjunctivitis - rx for eye drops/lube sent electronically to the patient's pharmacy. The patient has been instructed to cleanse affected eye with warm washcloth, then place medication into affected eye four times daily.Thrush- refill nystatin-call if symptoms do not resolve 08/05/2013 Appointment: Shahida Manzo WPtel: [address] [place], [place] [phone] Sick 08/05/2013 Patient Education: Patient Medication Summary [...] - all of which can exacerbate esophageal reflux.The patient is to take medications as prescribed and call the office if the symptoms are not improving.TRAZODONE REPLACES THE AMBIEN - START WITH 1/2 PILL AT BEDTIME, MAY GO UP TO 1 PILL IF NEEDED.START ON CARAFATE NEEDED FOR REFLUX SYMPTOMSSTART CEFDINIR FOR ANTIBIOTIC FOR SINUSITIS/BRONCHITISSTART PREDNISONE FOR SYMPTOMS SINUSITIS/DYSPNEA. 07/10/2013 Patient Education: [...] the office next week for practicioner to review.The pt is to call for acute concerns. Sinusitis - Pt has acute infection - pain in face, maxillary region, Pt informed to use decongestant, RX given to patient, sinus rinses also recommended. Call if symptoms do not show improvement. 06/03/2013 Appointment: Melba Goldman WPtel: [address] [place], [place] [id number] Follow up 06/03/2013 Patient Education: Patient Medication Summary Completed 06/03/2013 Patient Education: Hypertension Completed 06/03/2013 Appointment: Melba Goldman WPtel: [address] [place], [place] [id number] [place] Nurse Visit 05/13/2013 Patient Education: Patient [...] the office next week for practicioner to review.The pt is to call for acute concerns. Arthritis- occasionally uncontrolled symptoms- recommend pt to use topical antiinflammatory as directed for pain control.Use tylenol for break through pain symptoms. Hypothyroidism [...] of control. 05/07/2013 Appointment: Melba Goldman WPtel: [address] [place], [place] [phone] Follow up 05/07/2013 Patient Education: Patient Medication Summary Completed 05/07/2013 Patient Education: Hypertension Completed 05/07/2013 Patient Education: Patient Medication Summary Completed 04/30/2013 Patient Education: Hypertension Completed 04/30/2013 Visit Plan: Arthritis- occasionally uncontrolled symptoms- recommend pt to take antiinflammatory as directed for pain control.Use tylenol for break through pain symptoms. 12/03/2012 Appointment: Melba Goldman WPtel: [address] [place], [place] [phone] Follow up 12/03/2012 Patient Education: Patient Medication Summary Completed 12/03/2012 Patient Education: Patient Medication Summary Completed 11/29/2012 Patient Education: Hypertension Completed 11/29/2012 Visit Plan: Sinusitis - Pt has acute infection - pain in face, maxillary region, Pt informed to use decongestant, RX given to patient, sinus rinses also recommended. Call if symptoms do not show improvement.Dysuria-trace leukocytes- urine sent for cultlureThrush-symptoms returning-refill diflucan to start after abx completedHistory of herpes-RX for acyclovir-instructed pt to make appt if symptoms do not resolve 09/24/2012 Appointment: Shahida Manzo WPtel: [facility]5 [phone] [facility] 09/24/2012 Patient Education: Patient Medication Summary Completed 09/24/2012 Visit Plan: Hypertension - well controlled - continue with current medications, continue with no added salt diet. Pt has been encouraged to exercise daily.The pt has been advised to call the office if there are any acute concerns about change in blood pressure readings at home.Sleep apnea- not wearing current mask due to uncomfortable fit, recommended pt to get new mask fitted lindsay.Thrush- treating with diflucan 09/10/2012 Appointment: [phone] [facility] 09/10/2012 Patient Education: Patient Medication Summary Completed 09/10/2012 Patient Education: Hypertension Completed 09/10/2012 Visit Plan: Esophageal Reflux - the patient has been counseled against excessive intake of caffiene, spicy foods, peppermint, and cinnamon - all of which can exacerbate esophageal reflux.The patient is to take medications as prescribed [...] allergy symptoms are not controlled with the medication.If using nasal spray, instructions as follows: Nasal spray- use twice daily, one spray per nostril twice daily, after 30 minutes, rinse out nose with saline spray.. Use opposite hand per nostril to spray in the nasal steroid allergy spray. Arthritis- occasionally uncontrolled symptoms- recommend pt to take antiinflammatory as directed for pain control.Samples of celebrex 200mg po daily-stop aleveUse tylenol for break through pain symptoms. 08/08/2012 Appointment: [facility]el[phone] Follow up 08/08/2012 Patient Education: Patient Medication Summary Completed 08/08/2012 Patient Education: Patient Medication Summary Completed 08/07/2012 Patient Education: Hypertension Completed 08/07/2012 Appointment: Melba Goldman WPtel: [phone] [facility] [place] Lab Draw 02/16/2012 Patient Education: Patient [...] probiotic to prevent diarrhea while on the antibiotic.Pt to be on levaquin x 5 days.Labs to be drawn tomorrow: TSH, Free T4, CMPFatigue and Hypothyroidism - pt needed medications changed three months ago - perhaps that is part of her fatigue. Needs labs. 02/15/2012 Appointment: Melba Goldman WPtel: [facility]4 [facility] Other 02/15/2012 Patient Education: Patient Medication Summary Completed 02/15/2012 Visit Plan: Abdominal pain - ultrasound tomorrow AMnothing to eat before the ultrasound from 11pm tonight bland diet.Nausea - worse with fatty foods, recommended low fat/bland diet, call if symptoms worsening. 11/10/2011 Appointment: Melba Goldman WPtel: [facility] Other 11/10/2011 Patient Education: Patient Medication Summary Completed 11/10/2011 Patient Education: Patient Medication Summary Completed 11/08/2011 Patient Education: High Blood Pressure: Essential Hypertension Completed 11/08/2011 Visit Plan: Hypertension - well controlled - continue with current medications, continue with no added salt diet. Pt has been encouraged to exercise daily.The pt has been advised to call the [...] the risks associated with NOT treating the depression.I believe the pt will benefit from medical intervention and an antidepressant has been appropriately prescribed for this patient.START ON THE ABILIFY 2 mg AT BEDTIME.Irritable bowel syndrome - rx for betntyl- take three times daily, sheould help with the cramoing discomfort.Benefiber for fiber in diet to bulk up the stools. 08/01/2011 Appointment: Melba Goldman WPtel: [phone] [facility] Other 08/01/2011 Patient Education: Patient Medication Summary Completed 08/01/2011 Patient Education: High Blood Pressure: Essential Hypertension Completed 08/01/2011 Visit Plan: Sinusitis - Pt has acute infection - pain in face, maxillary region, Pt informed to use decongestant, RX given to patient, sinus rinses also recommended. Call if symptoms do not show improvement. Cough-kishore zurita 07/14/2011 Appointment: Shahida Manzo WPtel: [phone] [phone] [place] Other 07/14/2011 Patient Education: Patient Medication Summary Completed 07/14/2011 Visit Plan: Hypertension - continue with current medications, continue with no added salt diet. Pt has been encouraged to exercise daily. Refill bystolic-also sent rX. Will obtain renal artery ultrasound due to patient's resistent hypertension-she is currently on 3 medications for blood pressure and still has some elevated blood pressures-see scanned document.The pt has been advised to call the [...] the brain to start releasing melatonin. Refill am chad. Influenza vaccine today in the office. 05/23/2011 Appointment: Shahida Manzo WPtel: [phone] [phone] Other 05/23/2011 Patient Education: Patient Medication Summary [...] not follow expected course, or if any worse.Pt given samples and script for nasonex. Kenalog injection in the office today as well. Samples of singulair also provided for patient. Cough-refill cough med 05/03/2011 Appointment: Shahida Manzo WPtel: [phone] Other 05/03/2011 Patient Education: Patient Medication Summary [...] return to clinic in 1 month for re-evaluation.Depression-symptoms are slightly improved on cymbalta but not completely controlled. Plan to add deplin to see if we can get better management of overall depressive symptoms. Patient feels safe at home, no suicidal ideation. Plan to see patient in 1 month for follow up.Fatigue-worsening over the past several months. Plan to stop patient's metoprolol as I suspect this is a causative agent in her overwhelming fatigue. Will switch her to bystolic to see if we can imrpove her symptoms. Doctor's eval of the patient - I personally discussed the patient with the nurse practicioner. I have reviewed the p naida's chart, I have reviewed the patient's past medical history, problem list, medication list, and personal history. I agree with the documentation by the nurse practicioner in the HPI, physical exam, and the assessment and plan.I discussed the plan and helped formulate the [...] return to clinic in 1 month for re-evaluation.Depression-symptoms are slightly improved on cymbalta but not completely controlled. Plan to add deplin to see if we can get better management of overall depressive symptoms. Patient feels safe at home, no suicidal ideation. Plan to see patient in 1 month for follow up.Fatigue-worsening over the past several months. Plan to stop patient's metoprolol as I suspect this is a causative agent in her overwhelming fatigue. Will switch her to bystolic to see if we can imrpove her symptoms. 04/25/2011 Appointment: Shahida Manzo WPtel: [phone] [facility] 04/25/2011 Patient Education: Patient Medication [...] in symptoms, worsening redness, warmth, discharge. . Hypertension - well controlled - continue [...] fitted lindsay. Thrush- treating with diflucan . Wound Instructions - Pt was instructed [...] has been appropriately prescribed for this patient. rocephin/kenalog . Sinusitis - Pt has acute [...] efudex - pt instructed on use . Hypertension - uncontrolled - the patient's [...] if symptoms do not show improvement. . DX sinusitis - discussed expected course [...] part of her fatigue. Needs labs. . Paronychia-continue abx as previously prescribed. ROCEPHIN [...] this patient. ADD ABILIFY 2MG AT BEDTIME TAKE A PROBIOTIC TWICE DAILY WHILE ON [...] uncontrolled bleeding. Patient verbalized understandig of plan. TAPER OFF OF CYMBALTA-TAKE EVERY OTHER DAY [...] OFFICE Sleep apnea-patient needs new CPAP-will contact [facility] TAPER OFF OF CYMBALTA-TAKE EVERY [...] OFFICE Sleep apnea-patient needs new CPAP-will contact [facility] Pt reports that she uses her [...] OFFICE Sleep apnea-patient needs new CPAP-will contact [facility] Pt reports that she uses her CPAP and feels like she gets benefit from use of her CPAP with improved energy. . Abdominal pain/Diverticulitis - pt sent for [...] if the symptoms are not improving. . Tinea-discussed natural and expected course of this diagnosis and to alert me if symtpoms do not follow expect course, or if any worse. RX sent to patient's pharmacy. Keep areas dry Exposure to scabies-RX [facility] to [facility]. Edarbi 40mg daily Labs now EKG . [...] daily-dose given in the office today . Abrasion right leg-RX for keflex Headache-much improved-monitor and call if does not resolve Allergies-continue medications and call if symptoms do not improve, or if any worse. . Arthritis- occasionally uncontrolled symptoms- recommend pt to take antiinflammatory as directed for pain control. Use tylenol for break through pain symptoms. . HTN-improved today-no change in medications Tinea-start clotrimazole and diflucan Elevated ALT-check labs today to monitor . Acute Migraine - pt has chronic migraine headaches, but comes into clinic today complaining of intractable migraine headache symptoms. I have recommended changes to the chronic symptoms management and the pt has been given the following acute treatment in clinic today: . Hypertension - well controlled - continue with current medications, continue with no added salt diet. Pt has been encouraged to exercise daily. The pt has been advised to call the office if there are any acute concerns about change in blood pressure readings at home. Syhwbzt-mfmrbdflfvx-vpnmhjpr duragesic patch-appt with Dr Ortiz for pain management increase bystolic to 15mg daily.. Hypertension - [...] months based on previous levels of control. RESTART GENTAMICIN EYE DROPS DIRECTED Throw out your current mascara and eye makeup. Conjunctivitis - rx for eye drops/lube sent electronically to the patient's pharmacy. The patient has been instructed to cleanse affected eye with warm washcloth, then place medication into affected eye four times daily. Thrush-refill nystatin-call if symptoms do not resolve . Conjunctivitis - rx for eye drops/lube sent electronically to the patient's pharmacy. The patient has been instructed to cleanse affected eye with warm washcloth, then place medication into affected eye four times daily. . Sinusitis - Pt has acute infection [...] spray in the nasal steroid allergy spray. Do not start the diflucan until you [...] appt if symptoms do not resolve . Trigger Points - Injected trigger points [...] do not show improvement. Cough-tessalon pearles . Sinusitis - Pt has acute infection [...] in the nasal steroid allergy spray. . Cellulitis - The patient was instructed [...] cough syrup called in to pharmacy. . Hypertension - fairlywell controlled - due [...] pain-refill hydrocodone for prn breakthrough pain use. TRAZODONE REPLACES THE AMBIEN - START WITH [...] do not show improvement. Dysuria-culture urine . Abdominal pain - ultrasound tomorrow AM nothing to eat before the ultrasound from 11pm tonight bland diet. Nausea - worse with fatty foods, recommended low fat/bland diet, call if symptoms worsening.
--- OUTSIDE RECORDS SUMMARY | 2019-03-08 12:57 | XMS REPORT | CCD ---
Author Author [facility] Address [address] [place] [address] Phone Care Team Providers Care Licensed Architect Name Role Phone PP Unavailable CCM Unavailable Summary Purpose Interface Exchange Insurance Providers Payer name Policy type / Coverage type Covered libertarian ID Effective Begin Date Effective End Date [employer] Medicare Part B [id number] Unknown Family history Son Diagnosis Age At Onset Crohn's disease Unknown Brother Diagnosis Age At Onset Cardiovascular disease Unknown Mother Diagnosis Age At Onset Hypertension Unknown Father Diagnosis Age At Onset Cardiovascular disease Unknown Social History Social History Element Codes Description Effective Dates Marital status Unknown 04/22/2011 Number of children Unknown 3 1 son -Crohns 04/22/[address]: 042596466 Nonsmoker 04/22/2011 Allergies, Adverse Reactions, Alerts Allergies, [...] Instructions Augmentin 875 mg-125 mg tablet RxNorm: 365268 1 Tablet(s) PO BID 03/14/2017 03/20/2017 Active Kenalog 40 mg/mL suspension for injection RxNorm: 8314412 1 Milliliter(s) Inj 03/14/2017 03/14/2017 Inactive Lexapro 20 mg tablet RxNorm: 511389 1.5 Tablet(s) PO daily 03/08/2017 07/05/2017 Active Lexapro 20 mg tablet RxNorm: 352247 1.5 Tablet(s) PO daily 03/08/2017 03/07/2017 Inactive alprazolam 0.25 mg tablet RxNorm: 170077 1 Tablet(s) PO daily as needed 02/23/2017 04/23/2017 Active (Response to an electronic controlled substance refill request - RxReferenceNumber: [id number]) Flagyl 500 mg tablet RxNorm: 005131 1 Tablet(s) PO TID 02/20/2017 03/01/2017 Inactive promethazine 25 mg tablet RxNorm: 062590 1 Tablet(s) PO TID as needed nausea 02/20/2017 03/01/2017 Inactive Cipro 500 mg tablet RxNorm: 850256 1 Tablet(s) PO BID 02/20/2017 03/01/2017 Inactive Flagyl 500 mg tablet RxNorm: 888227 1 Tablet(s) PO TID 02/09/2017 02/15/2017 Inactive Trintellix 10 mg tablet RxNorm: 2996758 1 Tablet(s) PO QAM 02/06/2017 03/07/2017 Inactive Efudex 5 % topical cream RxNorm: 030365 1 Application TOP BID use on skin spot on nose 02/06/2017 02/15/2017 Inactive Bystolic 10 mg tablet RxNorm: 722848 TAKE ONE TABLET BY MOUTH DAILY 02/03/2017 06/02/2017 Active Imitrex 50 mg tablet RxNorm: 409019 TAKE ONE TABLET BY MOUTH EVERY 8 HOURS NEEDED MAY REPEAT IN 1 HOUR OF INITIAL DOSE. DISCONTINUE FIORICET 12/22/2016 02/19/2017 Inactive Nexium 40 mg capsule,delayed release RxNorm: 335700 TAKE ONE CAPSULE BY MOUTH EVERY DAY 12/21/2016 09/16/2017 Active Lexapro 20 mg tablet RxNorm: 124441 Tablet(s) TAKE ONE TABLET BY MOUTH DAILY 12/05/2016 02/05/2017 Inactive hydrocodone 10 mg-acetaminophen 325 mg tablet RxNorm: 236068 Tablet(s) PO TAKE ONE TO TWO TABLETS BY MOUTH EVERY 6 HOURS NEEDED FOR PAIN 11/28/2016 No Stop Date Active (Appended: Controlled substance eRx refill - RxReferenceNumber: [id number]) Augmentin 875 mg-125 mg tablet RxNorm: 969488 1 Tablet(s) PO BID 11/28/2016 12/04/2016 Inactive ceftriaxone 500 mg solution for injection RxNorm: 3553289 1 Milliliter(s) Inj 11/28/2016 11/28/2016 Inactive prednisone 20 mg tablet RxNorm: 832220 2 Tablet(s) PO daily 11/28/2016 12/02/2016 Inactive Synthroid 100 mcg tablet RxNorm: 493767 1 Tablet(s) PO daily 11/21/2016 05/19/2017 Active Brand name only! trazodone 50 mg tablet RxNorm: 214702 TAKE 1 AND 1/2 TABLETS EVERY NIGHT AT BEDTIME , MAY INCREASE TO 2 TABLETS AT BEDTIME NEEDED 11/21/2016 02/16/2017 Inactive trazodone 50 mg tablet RxNorm: 376741 Tablet(s) TAKE 1 AND 1/2 TABLETS EVERY NIGHT AT BEDTIME , MAY INCREASE TO 2 TABLETS AT BEDTIME NEEDED 11/21/2016 11/20/2016 Inactive Synthroid 100 mcg tablet RxNorm: 003242 1 Tablet(s) PO daily TAKE ONE TABLET BY MOUTH DAILY 11/08/2016 11/20/2016 Inactive ceftriaxone 500 mg solution for injection RxNorm: 9674804 Inj 11/07/2016 11/07/2016 Inactive Kenalog 40 mg/mL suspension for injection RxNorm: 0599642 Milliliter(s) Inj 11/07/2016 11/07/2016 Inactive Xanax 0.25 mg tablet RxNorm: 898578 1 Tablet(s) PO daily as needed 10/31/2016 12/27/2016 Inactive alprazolam 0.25 mg tablet RxNorm: 555048 1 Tablet(s) PO daily as needed 10/21/2016 12/18/2016 Inactive (Response to an electronic controlled substance refill request - RxReferenceNumber: [id number]) hydrochlorothiazide 25 mg tablet RxNorm: 418610 TAKE ONE TABLET BY MOUTH DAILY 10/11/2016 04/08/2017 Active Xanax 0.25 mg tablet RxNorm: 430903 1 Tablet(s) PO daily as needed 08/23/2016 10/19/2016 Inactive Flonase Allergy Relief 50 mcg/actuation nasal spray,suspension RxNorm: 9865083 1 [place] NASAL daily 08/15/2016 No Stop Date Active amoxicillin 500 mg capsule RxNorm: 654327 1 Capsule(s) PO TID 08/15/2016 08/24/2016 Inactive Bystolic 10 mg tablet RxNorm: 151834 TAKE ONE TABLET BY MOUTH DAILY 08/01/2016 12/28/2016 Inactive trazodone 50 mg tablet RxNorm: 888592 TAKE 1 AND 1/2 TABLETS EVERY NIGHT AT BEDTIME , MAY INCREASE TO 2 TABLETS AT BEDTIME NEEDED 07/25/2016 11/11/2016 Inactive alprazolam 0.25 mg tablet RxNorm: 749380 1 Tablet(s) PO daily as needed 07/25/2016 08/22/2016 Inactive (Response to an electronic controlled substance refill request - RxReferenceNumber: [id number]) Imitrex 50 mg tablet RxNorm: 053881 1 Tablet(s) PO Q8 as needed may repeat x1 dose in 1 hour of inital dose. 07/13/2016 No Stop Date Active Lexapro 20 mg tablet RxNorm: 699994 TAKE 1/2 TABLET BY MOUTH DAILY FOR 10 DAYS, THEN TAKE ONE TABLET BY MOUTH DAILY 06/27/2016 11/23/2016 Inactive Synthroid 100 mcg tablet RxNorm: 941162 TAKE ONE TABLET BY MOUTH DAILY 06/20/2016 11/07/2016 Inactive Augmentin 500 mg-125 mg tablet RxNorm: 020551 1 Tablet(s) PO TID 06/07/2016 06/13/2016 Inactive hydrocodone 10 mg-acetaminophen 325 mg tablet RxNorm: 208134 Tablet(s) PO TAKE ONE TO TWO TABLETS BY MOUTH EVERY 6 HOURS NEEDED FOR PAIN 06/07/2016 11/27/2016 Inactive (Appended: Controlled substance eRx refill - RxReferenceNumber: [id number]) hydrochlorothiazide 25 mg tablet RxNorm: 889335 TAKE ONE TABLET BY MOUTH DAILY 03/14/2016 09/09/2016 Inactive Edarbi 40 mg tablet RxNorm: 2535451 1 Tablet(s) PO daily 03/14/2016 06/06/2016 Inactive trazodone 50 mg tablet RxNorm: 182894 Tablet(s) TAKE 1 AND 1/2 TABLET AT BEDTIME. MAY INCREASE TO 2 TABLETS IF NECESSARY 02/25/2016 07/05/2016 Inactive Imitrex 50 mg tablet RxNorm: 107367 1 Tablet(s) PO Q8 as needed may repeat x1 dose in 1 hour of inital dose. 02/25/2016 07/12/2016 Inactive dc fioricet Xanax 0.25 mg tablet RxNorm: 004214 1 Tablet(s) PO daily as needed 02/24/2016 07/21/2016 Inactive mupirocin 2 % topical ointment RxNorm: 987344 1 TOP BID 02/22/2016 No Stop Date Active Bactrim DS 800 mg-160 mg tablet RxNorm: 109246 1 Tablet(s) PO BID 02/22/2016 03/02/2016 Inactive Fioricet 50 mg-325 mg-40 mg tablet RxNorm: 634912 Tablet(s) TAKE ONE TABLET BY MOUTH EVERY 4 HOURS NEEDED FOR headache 02/12/2016 02/24/2016 Inactive (Response to an electronic controlled substance refill request - RxReferenceNumber: [id number]) Fioricet 50 mg-325 mg-40 mg tablet RxNorm: 020663 Tablet(s) TAKE ONE TABLET BY MOUTH EVERY 4 HOURS NEEDED FOR headache 02/12/2016 02/11/2016 Inactive (Response to an electronic controlled substance refill request - RxReferenceNumber: [id number]) Nexium 40 mg capsule,delayed release RxNorm: 373697 TAKE ONE CAPSULE BY MOUTH EVERY DAY 02/01/2016 10/27/2016 Inactive Bystolic 10 mg tablet RxNorm: 193714 Tablet(s) TAKE ONE TABLET BY MOUTH DAILY 01/06/2016 07/03/2016 Inactive Xanax 0.25 mg tablet RxNorm: 586875 1 Tablet(s) PO daily as needed 12/28/2015 02/23/2016 Inactive Levaquin 500 mg tablet RxNorm: 084519 1 Tablet(s) PO daily take a probiotic daily 12/14/2015 02/11/2016 Inactive Levaquin 500 mg tablet RxNorm: 541183 1 Tablet(s) PO daily take a probiotic daily 12/14/2015 12/13/2015 Inactive Phenergan with Codeine Syrup RxNorm: 5-10 Milliliter(s) PO Q6 PRN 12/07/2015 No Stop Date Active prednisone 20 mg tablet RxNorm: 684731 1 Tablet(s) PO BID 12/07/2015 12/13/2015 Inactive Augmentin 875 mg-125 mg tablet RxNorm: 258275 1 Tablet(s) PO BID 12/07/2015 12/13/2015 Inactive ceftriaxone 500 mg solution for injection RxNorm: 6108893 Inj 12/07/2015 12/07/2015 Inactive alprazolam 0.25 mg tablet RxNorm: 717108 1 Tablet(s) PO daily as needed 11/27/2015 12/25/2015 Inactive (Response to an electronic controlled substance refill request - RxReferenceNumber: [id number]) trazodone 50 mg tablet RxNorm: 856174 TAKE 1 AND 1/2 TABLET AT BEDTIME FOR 2 WEEKS, MAY INCREASE TO 2 TABLETS IF NECESSARY AFTER THAT 11/26/2015 02/24/2016 Inactive ceftriaxone 500 mg solution for injection RxNorm: 9276348 Milliliter(s) Inj 11/24/2015 11/24/2015 Inactive prednisone 10 mg tablet RxNorm: 185865 3 Tablet(s) PO daily 11/24/2015 11/28/2015 Inactive cefdinir 300 mg capsule RxNorm: 781024 1 Capsule(s) PO BID 11/24/2015 11/30/2015 Inactive Kenalog 40 mg/mL suspension for injection RxNorm: 6392813 1 Milliliter(s) Inj 11/24/2015 11/24/2015 Inactive Lexapro 20 mg tablet RxNorm: 878310 TAKE 1/2 TABLET BY MOUTH DAILY FOR 10 DAYS, THEN TAKE ONE TABLET BY MOUTH DAILY 11/23/2015 05/20/2016 Inactive Norvasc 10 mg tablet RxNorm: 603008 Tablet(s) PO TAKE ONE TABLET BY MOUTH EVERY DAY 10/26/2015 02/22/2016 Inactive Lipitor 10 mg tablet RxNorm: 414800 Tablet(s) TAKE ONE TABLET BY MOUTH EVERY DAY 10/26/2015 11/06/2016 Inactive hydrochlorothiazide 25 mg tablet RxNorm: 805309 TAKE ONE TABLET BY MOUTH DAILY 10/20/2015 01/17/2016 Inactive alprazolam 0.25 mg tablet RxNorm: 192735 1 Tablet(s) PO daily as needed 08/27/2015 11/22/2015 Inactive (Response to an electronic controlled substance refill request - RxReferenceNumber: [id number]) promethazine 25 mg/mL injection solution RxNorm: 953163 Milliliter(s) Inj 08/27/2015 08/27/2015 Inactive ketorolac 60 mg/2 mL intramuscular solution RxNorm: 699187 Milliliter(s) IM 08/27/2015 08/27/2015 Inactive Lexapro 20 mg tablet RxNorm: 831073 TAKE 1/2 TABLET BY MOUTH DAILY FOR 10 DAYS, THEN TAKE ONE TABLET BY MOUTH DAILY 08/13/2015 11/10/2015 Inactive Flonase 50 mcg/actuation nasal spray,suspension RxNorm: 744375 PLACE 1 SPRAY IN EACH NOSTRIL DAILY 08/13/2015 02/08/2016 Inactive Augmentin 500 mg-125 mg tablet RxNorm: 978349 1 Tablet(s) PO TID 08/10/2015 08/16/2015 Inactive Kenalog 40 mg/mL suspension for injection RxNorm: 6586767 Milliliter(s) Inj 08/10/2015 08/10/2015 Inactive ceftriaxone 500 mg solution for injection RxNorm: 8517985 Inj 08/10/2015 08/10/2015 Inactive nystatin 100,000 unit/mL oral suspension RxNorm: 170700 4 Milliliter(s) PO QID 08/10/2015 08/16/2015 Inactive trazodone 50 mg tablet RxNorm: 921824 TAKE 1 AND 1/2 TABLET AT BEDTIME FOR 2 WEEKS, MAY INCREASE TO 2 TABLETS IF NECESSARY AFTER THAT 07/31/2015 11/25/2015 Inactive ceftriaxone 500 mg solution for injection RxNorm: 8368736 1 Milliliter(s) Inj 07/28/2015 07/28/2015 Inactive Bactrim DS 800 mg-160 mg tablet RxNorm: 810516 1 Tablet(s) PO BID 07/28/2015 08/06/2015 Inactive Bactroban 2 % topical ointment RxNorm: 995642 1 Application TOP BID 07/28/2015 08/06/2015 Inactive Diflucan 150 mg tablet RxNorm: 226520 1 Tablet(s) PO daily 06/11/2015 06/17/2015 Inactive clotrimazole 1 % topical cream RxNorm: 495699 1 Application TOP BID 06/11/2015 07/10/2015 Inactive Bystolic 10 mg tablet RxNorm: 797575 TAKE ONE TABLET BY MOUTH DAILY 06/08/2015 12/04/2015 Inactive alprazolam 0.25 mg tablet RxNorm: 829519 1 Tablet(s) PO daily as needed 06/01/2015 08/25/2015 Inactive (Response to an electronic controlled substance refill request - RxReferenceNumber: [id number]) Fioricet 50 mg-325 mg-40 mg tablet RxNorm: 714109 Tablet(s) TAKE ONE TABLET BY MOUTH EVERY 4 HOURS NEEDED FOR headache 05/28/2015 06/08/2015 Inactive (Response to an electronic controlled substance refill request - RxReferenceNumber: [id number]) trazodone 50 mg tablet RxNorm: 612051 TAKE 1 AND 1/2 TABLET AT BEDTIME FOR 2 WEEKS, MAY INCREASE TO 2 TABLETS IF NECESSARY AFTER THAT 05/25/2015 08/22/2015 Inactive trazodone 50 mg tablet RxNorm: 456782 TAKE 1 AND 1/2 TABLET AT BEDTIME FOR 2 WEEKS, MAY INCREASE TO 2 TABLETS IF NECESSARY AFTER THAT 05/25/2015 05/24/2015 Inactive Synthroid 100 mcg tablet RxNorm: 866833 TAKE ONE TABLET BY MOUTH DAILY 04/23/2015 01/17/2016 Inactive Lipitor 10 mg tablet RxNorm: 579710 TAKE ONE TABLET BY MOUTH EVERY DAY 04/23/2015 10/25/2015 Inactive Kenalog 40 mg/mL suspension for injection RxNorm: 3821694 Milliliter(s) Inj 03/19/2015 03/19/2015 Inactive Lexapro 20 mg tablet RxNorm: 573114 1 Tablet(s) PO daily 03/19/2015 07/16/2015 Inactive 1/2 tab daily x 10 days then 1 tab daily hydrocodone 10 mg-acetaminophen 325 mg tablet RxNorm: 476440 Tablet(s) PO TAKE ONE TO TWO TABLETS BY MOUTH EVERY 6 HOURS NEEDED FOR PAIN 03/19/2015 06/06/2016 Inactive (Appended: Controlled substance eRx refill - RxReferenceNumber: [id number]) Carafate 1 gram tablet RxNorm: 657802 1 Tablet(s) PO AC & HS 03/19/2015 06/16/2015 Inactive dissolve in water and take as a slurry hydrochlorothiazide 25 mg tablet RxNorm: 658473 1 Tablet(s) PO daily 03/12/2015 09/07/2015 Inactive Nexium 40 mg capsule,delayed release RxNorm: 286807 TAKE ONE CAPSULE BY MOUTH EVERY DAY 02/26/2015 12/22/2015 Inactive Cymbalta 60 mg capsule,delayed release RxNorm: 243784 TAKE ONE CAPSULE BY MOUTH TWICE A DAY 02/23/2015 03/18/2015 Inactive alprazolam 0.25 mg tablet RxNorm: 511544 1 Tablet(s) PO daily as needed 02/11/2015 05/10/2015 Inactive (Response to an electronic controlled substance refill request - RxReferenceNumber: [id number]) trazodone 50 mg tablet RxNorm: 067193 TAKE 1 AND 1/2 TABLET AT BEDTIME FOR 2 WEEKS, MAY INCREASE TO 2 TABLETS IF NECESSARY AFTER THAT 01/27/2015 05/24/2015 Inactive Augmentin 500 mg-125 mg tablet RxNorm: 910314 1 Tablet(s) PO TID 01/07/2015 01/13/2015 Inactive gentamicin 0.3 % eye drops RxNorm: 643735 3 Drop(s) OPH QID 01/07/2015 01/13/2015 Inactive [AttnRPh: Saving apply/adjudicate RxGRP:[id number] RxBIN:[id number] RxPCN: ID#:[id number]] scopolamine 1.5 mg transdermal 72 hour patch RxNorm: 582998 1 Patch TD q72 hours 01/07/2015 11/23/2015 Inactive Synthroid 100 mcg tablet RxNorm: 120985 TAKE ONE TABLET BY MOUTH ONCE A DAY 01/06/2015 04/22/2015 Inactive nystatin 100,000 unit/gram topical powder RxNorm: 220312 APPLY TOPICALLY TWO TIMES A DAY 12/18/2014 03/17/2015 Inactive alprazolam 0.25 mg tablet RxNorm: 698906 TAKE ONE TABLET BY MOUTH DAILY NEEDED 10/30/2014 11/28/2014 Inactive (Response to an electronic controlled substance refill request - RxReferenceNumber: [id number]) alprazolam 0.25 mg tablet RxNorm: 953772 Tablet(s) TAKE ONE TABLET BY MOUTH DAILY 10/30/2014 10/29/2014 Inactive (Response to an electronic controlled substance refill request - RxReferenceNumber: [id number]) Lipitor 10 mg tablet RxNorm: 576208 TAKE ONE TABLET BY MOUTH EVERY DAY 10/30/2014 02/26/2015 Inactive alprazolam 0.25 mg tablet RxNorm: 357493 TAKE ONE TABLET BY MOUTH DAILY 10/07/2014 10/29/2014 Inactive (Response to an electronic controlled substance refill request - RxReferenceNumber: [id number]) alprazolam 0.25 mg tablet RxNorm: 703526 TAKE ONE TABLET BY MOUTH DAILY 10/06/2014 10/07/2014 Inactive (Response to an electronic controlled substance refill request - RxReferenceNumber: [id number]) alprazolam 0.25 mg tablet RxNorm: 011004 Tablet(s) TAKE ONE TABLET BY MOUTH EVERY DAY NEEDED 09/30/2014 10/06/2014 Inactive (Response to an electronic controlled substance refill request - RxReferenceNumber: [id number]) Fioricet 50 mg-325 mg-40 mg tablet RxNorm: 905248 Tablet(s) TAKE ONE TABLET BY MOUTH EVERY 4 HOURS NEEDED FOR headache 09/29/2014 10/12/2014 Inactive (Response to an electronic controlled substance refill request - RxReferenceNumber: [id number]) Bystolic 10 mg tablet RxNorm: 922719 1 Tablet(s) PO daily TAKE ONE TABLET BY MOUTH EVERY DAY 09/29/2014 04/26/2015 Inactive Bystolic 5 mg tablet RxNorm: 119904 TAKE 1 AND 1/2 TABLETS ONCE DAILY 09/24/2014 09/23/2014 Inactive Bystolic 5 mg tablet RxNorm: 923570 Tablet(s) TAKE 1 AND 1/2 TABLETS ONCE DAILY 09/24/2014 09/18/2015 Inactive gentamicin 0.3 % eye drops RxNorm: 668387 3 Drop(s) OPH QID 09/23/2014 09/29/2014 Inactive trazodone 50 mg tablet RxNorm: 037337 TAKE 1 AND 1/2 TABLET AT BEDTIME FOR 2 WEEKS, MAY INCREASE TO 2 TABLETS IF NECESSARY AFTER THAT 09/22/2014 01/26/2015 Inactive Fioricet 50 mg-325 mg-40 mg tablet RxNorm: 436583 TAKE ONE TABLET BY MOUTH EVERY 4 HOURS NEEDED FOR PAIN 09/17/2014 09/28/2014 Inactive (Response to an electronic controlled substance refill request - RxReferenceNumber: [id number]) Duragesic 50 mcg/hr transdermal patch RxNorm: 200903 1 TD q72 hours 08/07/2014 01/06/2015 Inactive [SAVINGS FOR UNINSURED PATIENTS -- BIN:615037, PCN: ASPROD1, Group: [id number], ID# [id number], Process claim through [employer], for questions: . THIS IS NOT INSURANCE.] alprazolam 0.25 mg tablet RxNorm: 007379 TAKE ONE TABLET BY MOUTH EVERY DAY NEEDED 07/31/2014 08/29/2014 Inactive (Response to an electronic controlled substance refill request - RxReferenceNumber: [id number]) alprazolam 0.25 mg tablet RxNorm: 772336 1 Tablet(s) PO daily as needed TAKE ONE TABLET BY MOUTH EVERY DAY NEEDED 07/30/2014 08/01/2014 Inactive (Response to an electronic controlled substance refill request - RxReferenceNumber: [id number]) Diflucan 150 mg tablet RxNorm: 540700 1 Tablet(s) PO daily 06/25/2014 07/01/2014 Inactive [SAVINGS FOR UNINSURED PATIENTS -- BIN:479036, PCN: ASPROD1, Group: [id number], ID# [id number], Process claim through [employer], for questions: . THIS IS NOT INSURANCE.] Kenalog 40 mg/mL suspension for injection RxNorm: 9535476 Milliliter(s) Inj 06/23/2014 06/23/2014 Inactive [SAVINGS FOR UNINSURED PATIENTS -- BIN:337847, PCN: ASPROD1, Group: [id number], ID# [id number], Process claim through [employer], for questions: . THIS IS NOT INSURANCE.] ceftriaxone 500 mg solution for injection RxNorm: 658889 Inj 06/23/2014 06/23/2014 Inactive [SAVINGS FOR UNINSURED PATIENTS -- BIN:046853, PCN: ASPROD1, Group: [id number], ID# [id number], Process claim through [employer], for questions: . THIS IS NOT INSURANCE.] Levaquin 500 mg tablet RxNorm: 599427 1 Tablet(s) PO daily 06/23/2014 07/13/2014 Inactive [SAVINGS FOR UNINSURED PATIENTS -- BIN:730268, PCN: ASPROD1, Group: [id number], ID# [id number], Process claim through [employer], for questions: . THIS IS NOT INSURANCE.] Duragesic 50 mcg/hr transdermal patch RxNorm: 998221 1 TD q72 hours 06/05/2014 08/06/2014 Inactive [SAVINGS FOR UNINSURED PATIENTS -- BIN:073771, PCN: ASPROD1, Group: [id number], ID# [id number], Process claim through [employer], for questions: . THIS IS NOT INSURANCE.] alprazolam 0.25 mg tablet RxNorm: 561627 1 Tablet(s) PO daily as needed TAKE ONE TABLET BY MOUTH EVERY DAY NEEDED 06/02/2014 07/29/2014 Inactive (Response to an electronic controlled substance refill request - RxReferenceNumber: [id number]) nystatin 100,000 unit/gram topical powder RxNorm: 259702 APPLY TO AFFECTED AREA(S) TWO TIMES A DAY 05/01/2014 06/14/2014 Inactive hydrochlorothiazide 25 mg tablet RxNorm: 036694 TAKE ONE TABLET BY MOUTH EVERY DAY MUST CALL MD FOR APPOINTMENT 04/24/2014 10/20/2014 Inactive alprazolam 0.25 mg tablet RxNorm: 063964 Tablet(s) TAKE ONE TABLET BY MOUTH EVERY DAY NEEDED 04/16/2014 06/02/2014 Inactive (Response to an electronic controlled substance refill request - RxReferenceNumber: [id number]) alprazolam 0.25 mg tablet RxNorm: 801518 TAKE ONE TABLET BY MOUTH EVERY DAY NEEDED 04/16/2014 05/15/2014 Inactive (Response to an electronic controlled substance refill request - RxReferenceNumber: [id number]) alprazolam 0.25 mg tablet RxNorm: 038969 TAKE ONE TABLET BY MOUTH EVERY DAY NEEDED 04/16/2014 05/15/2014 Inactive (Response to an electronic controlled substance refill request - RxReferenceNumber: [id number]) alprazolam 0.25 mg tablet RxNorm: 366861 TAKE ONE TABLET BY MOUTH EVERY DAY NEEDED 04/14/2014 04/16/2014 Inactive (Response to an electronic controlled substance refill request - RxReferenceNumber: [id number]) Lipitor 10 mg tablet RxNorm: 649272 TAKE ONE TABLET BY MOUTH EVERY DAY 04/14/2014 09/10/2014 Inactive alprazolam 0.25 mg tablet RxNorm: 154143 TAKE ONE TABLET BY MOUTH EVERY DAY NEEDED 04/14/2014 04/14/2014 Inactive (Response to an electronic controlled substance refill request - RxReferenceNumber: [id number]) alprazolam 0.25 mg tablet RxNorm: 868184 TAKE ONE TABLET BY MOUTH EVERY DAY NEEDED 04/14/2014 04/15/2014 Inactive (Response to an electronic controlled substance refill request - RxReferenceNumber: [id number]) alprazolam 0.25 mg tablet RxNorm: 644353 TAKE ONE TABLET BY MOUTH EVERY DAY NEEDED 04/14/2014 04/14/2014 Inactive (Response to an electronic controlled substance refill request - RxReferenceNumber: [id number]) nystatin 100,000 unit/gram topical powder RxNorm: 319747 1 Application TOP BID 04/03/2014 07/01/2014 Inactive [SAVINGS FOR UNINSURED PATIENTS -- BIN:870309, PCN: ASPROD1, Group: [id number], ID# [id number], Process claim through [employer], for questions: . THIS IS NOT INSURANCE.] Keflex 500 mg capsule RxNorm: 543441 1 Capsule(s) PO QID 04/03/2014 04/09/2014 Inactive [SAVINGS FOR UNINSURED PATIENTS -- BIN:043546, PCN: ASPROD1, Group: [id number], ID# [id number], Process claim through [employer], for questions: . THIS IS NOT INSURANCE.] Synthroid 100 mcg tablet RxNorm: 451457 1 Tablet(s) PO daily TAKE ONE TABLET BY MOUTH EVERY DAY 04/01/2014 01/05/2015 Inactive [SAVINGS FOR UNINSURED PATIENTS -- BIN:193059, PCN: ASPROD1, Group: [id number], ID# [id number], Process claim through [employer], for questions: . THIS IS NOT INSURANCE.] Duragesic 50 mcg/hr transdermal patch RxNorm: 752472 1 TD q72 hours 03/24/2014 06/04/2014 Inactive [SAVINGS FOR UNINSURED PATIENTS -- BIN:570432, PCN: ASPROD1, Group: [id number], ID# [id number], Process claim through [employer], for questions: . THIS IS NOT INSURANCE.] trazodone 50 mg tablet RxNorm: 050487 TAKE 1 AND 1/2 TABLET AT BEDTIME FOR 2 WEEKS, MAY INCREASE TO 2 TABLETS IF NECESSARY AFTER THAT 03/18/2014 09/13/2014 Inactive nystatin 100,000 unit/gram topical powder RxNorm: 431383 1 Application TOP BID 03/07/2014 03/16/2014 Inactive [SAVINGS FOR UNINSURED PATIENTS -- BIN:645755, PCN: ASPROD1, Group: [id number], ID# [id number], Process claim through [employer], for questions: . THIS IS NOT INSURANCE.] permethrin 5 % topical cream RxNorm: 770042 1 Application TOP daily 03/07/2014 11/23/2015 Inactive apply head to toe-leave on overnight and wash off in the a.m. May repeat x 1 if needed Diflucan 150 mg tablet RxNorm: 322375 1 Tablet(s) PO daily 03/07/2014 03/09/2014 Inactive [SAVINGS FOR UNINSURED PATIENTS -- BIN:598619, PCN: ASPROD1, Group: [id number], ID# [id number], Process claim through [employer], for questions: . THIS IS NOT INSURANCE.] hydrochlorothiazide 25 mg tablet RxNorm: 638718 TAKE ONE TABLET BY MOUTH EVERY DAY MUST CALL MD FOR APPOINTMENT 03/06/2014 04/23/2014 Inactive Zithromax Z-Sergio 250 mg tablet RxNorm: 211942 Tablet(s) PO as directed 03/04/2014 11/23/2015 Inactive [SAVINGS FOR UNINSURED PATIENTS -- BIN:679647, PCN: ASPROD1, Group: [id number], ID# [id number], Process claim through [employer], for questions: . THIS IS NOT INSURANCE.] Flonase 50 mcg/actuation nasal spray,suspension RxNorm: 818672 1 [place] NASAL daily 03/04/2014 07/01/2014 Inactive [SAVINGS FOR UNINSURED PATIENTS -- BIN:965455, PCN: ASPROD1, Group: [id number], ID# [id number], Process claim through [employer], for questions: . THIS IS NOT INSURANCE.] alprazolam 0.25 mg tablet RxNorm: 292316 1 Tablet(s) PO PRN TAKE ONE TABLET BY MOUTH EVERY DAY NEEDED 02/25/2014 04/14/2014 Inactive (Appended: Controlled substance eRx refill - RxReferenceNumber: [id number]) alprazolam 0.25 mg tablet RxNorm: 979564 TAKE ONE TABLET BY MOUTH EVERY DAY NEEDED 02/21/2014 03/22/2014 Inactive (Response to an electronic controlled substance refill request - RxReferenceNumber: [id number]) alprazolam 0.25 mg tablet RxNorm: 739150 TAKE ONE TABLET BY MOUTH EVERY DAY NEEDED 02/21/2014 03/22/2014 Inactive (Response to an electronic controlled substance refill request - RxReferenceNumber: [id number]) alprazolam 0.25 mg tablet RxNorm: 977591 TAKE ONE TABLET BY MOUTH EVERY DAY NEEDED 02/18/2014 03/19/2014 Inactive (Response to an electronic controlled substance refill request - RxReferenceNumber: [id number]) Cymbalta 60 mg capsule,delayed release RxNorm: 964965 TAKE ONE CAPSULE BY MOUTH TWICE A DAY 02/18/2014 01/13/2015 Inactive Nexium 40 mg capsule,delayed release RxNorm: 436705 TAKE ONE CAPSULE BY MOUTH EVERY DAY 02/18/2014 01/13/2015 Inactive Bactrim DS 800 mg-160 mg tablet RxNorm: 960545 1 Tablet(s) PO BID 02/13/2014 02/19/2014 Inactive probiotic while one antibiotic Bactrim DS 800 mg-160 mg tablet RxNorm: 535679 1 Tablet(s) PO BID 02/13/2014 02/12/2014 Inactive hydrocodone 10 mg-acetaminophen 325 mg tablet RxNorm: 496009 Tablet(s) PO TAKE ONE TO TWO TABLETS BY MOUTH EVERY 6 HOURS NEEDED FOR PAIN 02/06/2014 03/18/2015 Inactive (Appended: Controlled substance eRx refill - RxReferenceNumber: [id number]) Abilify 2 mg tablet RxNorm: 488616 Tablet(s) PO TAKE ONE TABLET BY MOUTH EVERY NIGHT AT BEDTIME 02/03/2014 03/19/2015 Inactive Duragesic 50 mcg/hr transdermal patch RxNorm: 145351 1 TD q72 hours 01/14/2014 03/23/2014 Inactive alprazolam 0.25 mg tablet RxNorm: 341803 1 Tablet(s) PO QDAY PRN 01/14/2014 02/12/2014 Inactive alprazolam 0.25 mg tablet RxNorm: 957771 Tablet(s) PO TAKE ONE TABLET BY MOUTH EVERY DAY NEEDED 01/14/2014 02/24/2014 Inactive (Appended: Controlled substance eRx refill - RxReferenceNumber: [id number]) Lipitor 10 mg tablet RxNorm: 975647 Tablet(s) PO TAKE ONE TABLET BY MOUTH EVERY DAY 01/14/2014 04/13/2014 Inactive Synthroid 100 mcg tablet RxNorm: 699217 Tablet(s) PO TAKE ONE TABLET BY MOUTH EVERY DAY 2013 03/31/2014 Inactive Fioricet 50 mg-325 mg-40 mg tablet RxNorm: 862673 Tablet(s) PO TAKE ONE TABLET BY MOUTH EVERY 4 HOURS NEEDED FOR PAIN 11/27/2013 09/17/2014 Inactive Fioricet 50 mg-325 mg-40 mg tablet RxNorm: 331416 Tablet(s) PO TAKE ONE TABLET BY MOUTH EVERY 4 HOURS NEEDED FOR PAIN 11/25/2013 11/26/2013 Inactive Zithromax Z-Sergio 250 mg tablet RxNorm: 376145 Tablet(s) PO as directed 11/11/2013 01/13/2014 Inactive Bystolic 10 mg tablet RxNorm: 284611 Tablet(s) PO TAKE ONE TABLET BY MOUTH EVERY DAY 10/21/2013 09/28/2014 Inactive Abilify 2 mg tablet RxNorm: 977740 1 Tablet(s) PO QHS 09/25/2013 01/22/2014 Inactive Synthroid 100 mcg tablet RxNorm: 522495 Tablet(s) PO TAKE ONE TABLET BY MOUTH EVERY DAY 09/24/2013 12/25/2013 Inactive Abilify 2 mg tablet RxNorm: 546452 1 Tablet(s) PO QHS 09/24/2013 09/24/2013 Inactive Rocephin 500 mg solution for injection RxNorm: 587542 1ml Milliliter(s) Inj 09/24/2013 09/24/2013 Inactive Rocephin 500 mg solution for injection RxNorm: 770264 1 Milliliter(s) Inj 09/19/2013 09/19/2013 Inactive Bystolic 5 mg tablet RxNorm: 518573 1 1/2 Tablet(s) PO daily 09/17/2013 03/15/2014 Inactive 1 1/2 daily may have 90 day if cheaper Bystolic 5 mg tablet RxNorm: 146836 1 1/2 Tablet(s) PO daily 09/17/2013 09/16/2013 Inactive 1 1/2 daily Lipitor 10 mg tablet RxNorm: 079455 Tablet(s) PO TAKE ONE TABLET BY MOUTH EVERY DAY 09/12/2013 01/13/2014 Inactive hydrocodone 10 mg-acetaminophen 325 mg tablet RxNorm: 079282 Tablet(s) PO TAKE ONE TO TWO TABLETS BY MOUTH EVERY 6 HOURS NEEDED FOR PAIN 09/09/2013 No Stop Date Active (Appended: Controlled substance eRx refill - RxReferenceNumber: [id number]) hydrocodone 10 mg-acetaminophen 325 mg tablet RxNorm: 397569 1 Tablet(s) PO Q6 PRN 09/09/2013 02/06/2014 Inactive hydrocodone 10 mg-acetaminophen 325 mg tablet RxNorm: 414389 Tablet(s) PO TAKE ONE TO TWO TABLETS BY MOUTH EVERY 6 HOURS NEEDED FOR PAIN 09/06/2013 No Stop Date Active (Appended: Controlled substance eRx refill - RxReferenceNumber: [id number]) Norvasc 10 mg tablet RxNorm: 622701 Tablet(s) PO TAKE ONE TABLET BY MOUTH EVERY DAY 09/05/2013 10/25/2015 Inactive trazodone 50 mg tablet RxNorm: 737859 1 1/2 Tablet(s) PO QHS 09/03/2013 03/17/2014 Inactive 75q hs x 2 week may increase to 100mg if nec after that nystatin 100,000 unit/mL oral suspension RxNorm: 676740 6 Milliliter(s) PO QID 08/06/2013 08/15/2013 Inactive Flonase 50 mcg/actuation nasal spray,suspension RxNorm: 446384 2 [place] NASAL daily 08/06/2013 03/03/2014 Inactive nystatin 100,000 unit/mL oral suspension RxNorm: 762970 6 Unit(s) PO QID 08/05/2013 08/05/2013 Inactive Phenergan with Codeine Syrup RxNorm: 5 Milliliter(s) PO Q4 PRN 08/05/2013 12/02/2013 Inactive 8 ounces alprazolam 0.25 mg tablet RxNorm: 960618 1 Tablet(s) PO QDAY PRN 07/29/2013 01/14/2014 Inactive Diflucan 150 mg tablet RxNorm: 971774 1 Tablet(s) PO daily 07/24/2013 07/26/2013 Inactive hydrochlorothiazide 25 mg tablet RxNorm: 128913 Tablet(s) PO TAKE ONE TABLET BY MOUTH EVERY DAY MUST CALL MD FOR APPOINTMENT 07/19/2013 03/05/2014 Inactive Phenergan with Codeine Syrup RxNorm: 10 Milliliter(s) PO Q4 PRN 07/10/2013 08/04/2013 Inactive 8 ounces Rocephin 500 mg solution for injection RxNorm: 949084 1 Inj 07/10/2013 07/10/2013 Inactive cefdinir 300 mg capsule RxNorm: 153917 1 Capsule(s) PO BID 07/10/2013 07/16/2013 Inactive prednisone 10 mg tablet RxNorm: 341216 3 Tablet(s) PO daily 07/10/2013 07/14/2013 Inactive Carafate 100 mg/mL oral suspension RxNorm: 073225 10 Milliliter(s) PO Q6 PRN pt to take carafate 10mL every 6 hours as needed. 07/10/2013 08/05/2014 Inactive Kenalog 40 mg/mL suspension for injection RxNorm: 9665395 1 Milliliter(s) Inj 07/10/2013 07/10/2013 Inactive trazodone 50 mg tablet RxNorm: 787708 1 Tablet(s) PO QHS 07/10/2013 09/02/2013 Inactive sulfamethoxazole 800 mg-trimethoprim 160 mg tablet RxNorm: 042528 1 Tablet(s) PO BID 06/03/2013 06/12/2013 Inactive Synthroid 125 mcg tablet RxNorm: 631355 1 Tablet(s) PO daily 05/07/2013 09/23/2013 Inactive Bystolic 10 mg tablet RxNorm: 484012 1.5 Tablet(s) PO daily 05/07/2013 09/03/2013 Inactive Voltaren 1 % Topical Gel RxNorm: 568698 4 Gram(s) TOP QID apply 4 grams to knees, 2 grams to hands and ankles four times daily. 05/07/2013 09/03/2013 Inactive hydrocodone 10 mg-acetaminophen 325 mg tablet RxNorm: 855895 1 Tablet(s) PO Q6 PRN 04/23/2013 09/09/2013 Inactive Norvasc 10 mg tablet RxNorm: 681530 Tablet(s) PO TAKE ONE TABLET BY MOUTH EVERY DAY 04/23/2013 09/04/2013 Inactive alprazolam 0.25 mg tablet RxNorm: 130465 1 Tablet(s) PO QDAY PRN 03/25/2013 07/22/2013 Inactive Bystolic 10 mg tablet RxNorm: 079283 1 Tablet(s) PO daily TAKE ONE TABLET BY MOUTH EVERY DAY 03/25/2013 05/06/2013 Inactive zolpidem 10 mg tablet RxNorm: 382511 1 Tablet(s) PO HS PRN 03/25/2013 07/09/2013 Inactive gentamicin 0.3 % Eye Drops RxNorm: 751433 3 Drop(s) OPH QID three gtts to each eye QID x 7 days 03/11/2013 03/10/2013 Inactive gentamicin 0.3 % eye drops RxNorm: 819272 3 Drop(s) OPH QID three gtts to each eye QID x 7 days 03/11/2013 03/17/2013 Inactive Nexium 40 mg capsule,delayed release RxNorm: 247456 Capsule(s) PO TAKE ONE CAPSULE BY MOUTH EVERY DAY 02/15/2013 02/17/2014 Inactive Cymbalta 60 mg capsule,delayed release RxNorm: 891352 Capsule(s) PO TAKE ONE CAPSULE BY MOUTH TWICE A DAY 02/15/2013 02/17/2014 Inactive hydrocodone 10 mg-acetaminophen 325 mg tablet RxNorm: 3489182 1 Tablet(s) PO Q6 PRN 01/22/2013 04/22/2013 Inactive Lipitor 10 mg tablet RxNorm: 111417 Tablet(s) PO TAKE ONE TABLET BY MOUTH EVERY DAY 01/07/2013 09/11/2013 Inactive Cymbalta 60 mg capsule,delayed release RxNorm: 868428 Capsule(s) PO TAKE ONE CAPSULE BY MOUTH TWICE A DAY 01/02/2013 02/14/2013 Inactive Synthroid 100 mcg tablet RxNorm: 171593 1 Tablet(s) PO 12/03/2012 05/06/2013 Inactive Enablex 7.5 mg tablet,extended release RxNorm: 619437 1 Tablet(s) PO daily 11/28/2012 11/27/2012 Inactive Enablex 7.5 mg tablet,extended release RxNorm: 671567 1 Tablet(s) PO daily 11/28/2012 11/28/2012 Inactive scopolamine 1.5 mg 72 hr Transderm Patch RxNorm: 151009 1 Milligram(s) TD q72 hours 11/26/2012 05/06/2013 Inactive hydrochlorothiazide 25 mg tablet RxNorm: 865219 Tablet(s) PO TAKE ONE TABLET BY MOUTH EVERY DAY MUST CALL FOR APPOINTMENT 11/24/2012 07/18/2013 Inactive Cymbalta 60 mg capsule,delayed release RxNorm: 448202 Capsule(s) PO TAKE ONE CAPSULE BY MOUTH TWICE A DAY 10/26/2012 01/01/2013 Inactive Bystolic 10 mg tablet RxNorm: 589985 Tablet(s) PO TAKE ONE TABLET BY MOUTH EVERY DAY 10/12/2012 03/25/2013 Inactive zolpidem 10 mg tablet RxNorm: 050996 1 Tablet(s) PO HS PRN 10/02/2012 01/29/2013 Inactive alprazolam 0.25 mg tablet RxNorm: 017498 1 Tablet(s) PO QDAY PRN 10/02/2012 01/29/2013 Inactive Kenalog 40 mg/mL Susp for Injection RxNorm: 1285584 1 Milliliter(s) Inj 09/24/2012 09/24/2012 Inactive Diflucan 150 mg tablet RxNorm: 855492 1 Tablet(s) PO daily 09/24/2012 09/30/2012 Inactive acyclovir 400 mg tablet RxNorm: 142048 1 Tablet(s) PO QID 09/24/2012 10/08/2012 Inactive Cipro 500 mg tablet RxNorm: 434012 1 Tablet(s) PO BID 09/24/2012 09/30/2012 Inactive Tamiflu 75 mg capsule RxNorm: 859557 1 Capsule(s) PO BID 09/17/2012 09/16/2012 Inactive Tamiflu 75 mg capsule RxNorm: 439715 1 Capsule(s) PO BID 09/17/2012 09/16/2012 Inactive Tamiflu 75 mg capsule RxNorm: 247589 1 Capsule(s) PO BID please disregard order for #14 09/17/2012 09/21/2012 Inactive fluconazole 150 mg tablet RxNorm: 914432 1 Tablet(s) PO daily 09/10/2012 09/13/2012 Inactive ketoconazole 2 % Topical Cream RxNorm: 927737 Application TOP BID apply to affected area BID until gone 08/31/2012 No Stop Date Active Norvasc 10 mg tablet RxNorm: 741263 Tablet(s) PO TAKE ONE TABLET BY MOUTH EVERY DAY 08/29/2012 04/22/2013 Inactive Cipro 500 mg tablet RxNorm: 799180 1 Tablet(s) PO BID 08/17/2012 08/26/2012 Inactive Flagyl 500 mg tablet RxNorm: 691724 1 Tablet(s) PO TID 08/17/2012 08/23/2012 Inactive Cipro 500 mg tablet RxNorm: 822386 1 Tablet(s) PO BID 08/17/2012 08/16/2012 Inactive zolpidem 10 mg tablet RxNorm: 224746 1 Tablet(s) PO HS PRN 08/17/2012 09/15/2012 Inactive Flagyl 500 mg tablet RxNorm: 365368 1 Tablet(s) PO TID 08/17/2012 08/16/2012 Inactive alprazolam 0.25 mg tablet RxNorm: 296322 1 Tablet(s) PO QDAY PRN 08/17/2012 09/15/2012 Inactive [place] Allergy 180 mg tablet RxNorm: 944505 1 Tablet(s) PO daily 08/08/2012 02/03/2013 Inactive hydrochlorothiazide 25 mg tablet RxNorm: 750812 1/2 Tablet(s) PO daily 08/08/2012 11/05/2012 Inactive needs appt Carafate 1 gram tablet RxNorm: 591956 1 Tablet(s) PO QID mix with 10 cc water and dissolve into slurry 08/08/2012 08/21/2012 Inactive hydrocodone 10 mg-acetaminophen 325 mg tablet RxNorm: 7825718 1 Tablet(s) PO Q6 PRN 08/08/2012 01/21/2013 Inactive Synthroid 100 mcg tablet RxNorm: 076653 1 Tablet(s) PO 08/08/2012 12/02/2012 Inactive Cymbalta 60 mg capsule,delayed release RxNorm: 684217 Capsule(s) PO 07/23/2012 10/25/2012 Inactive TAKE ONE CAPSULE BY MOUTH TWICE A DAY Nexium 40 mg capsule,delayed release RxNorm: 621881 Capsule(s) PO 06/20/2012 02/14/2013 Inactive TAKE ONE CAPSULE BY MOUTH EVERY DAY Lipitor 10 mg tablet RxNorm: 765841 Tablet(s) PO 06/20/2012 01/06/2013 Inactive TAKE ONE TABLET BY MOUTH EVERY DAY hydrochlorothiazide 25 mg tablet RxNorm: 442856 1 Tablet(s) PO daily 06/19/2012 08/07/2012 Inactive needs appt alprazolam 0.25 mg tablet RxNorm: 188441 1 Tablet(s) PO QDAY PRN 06/05/2012 07/04/2012 Inactive zolpidem 10 mg tablet RxNorm: 606806 1 Tablet(s) PO HS PRN 06/05/2012 07/04/2012 Inactive zolpidem 10 mg tablet RxNorm: 140641 1 Tablet(s) PO HS PRN 04/16/2012 05/15/2012 Inactive alprazolam 0.25 mg tablet RxNorm: 357222 1 Tablet(s) PO QDAY PRN 04/16/2012 05/15/2012 Inactive Cymbalta 60 mg capsule,delayed release RxNorm: 709902 1 Capsule(s) PO BID 03/22/2012 07/19/2012 Inactive Fioricet 50 mg-325 mg-40 mg tablet RxNorm: 853613 1 Tablet(s) PO Q4 PRN 03/22/2012 11/24/2013 Inactive Bystolic 10 mg tablet RxNorm: 382842 Tablet(s) PO 03/22/2012 10/11/2012 Inactive TAKE ONE TABLET BY MOUTH EVERY DAY potassium chloride ER 10 mEq Tab RxNorm: 001448 1 Tablet(s) PO daily 02/24/2012 03/01/2012 Inactive Lasix 20 mg Tab RxNorm: 969604 1 Tablet(s) PO daily 02/22/2012 02/21/2012 Inactive KCL 10 meq RxNorm: 1 PO daily 02/22/2012 02/21/2012 Inactive potassium chloride ER 10 mEq Tab RxNorm: 216670 1 Tablet(s) PO daily 02/22/2012 02/21/2012 Inactive Lasix 20 mg Tab RxNorm: 871749 1 Tablet(s) PO daily 02/22/2012 02/28/2012 Inactive KCL 10 meq RxNorm: 1 PO daily 02/22/2012 02/22/2012 Inactive potassium chloride ER 10 mEq Tab RxNorm: 178613 1 Tablet(s) PO daily 02/22/2012 02/23/2012 Inactive Rocephin 500 mg Solution for Injection RxNorm: 221332 Inj 02/15/2012 02/15/2012 Inactive Nexium 40 mg capsule,delayed release RxNorm: 409737 1 Capsule(s) PO daily 02/15/2012 No Stop Date Active Bystolic 10 mg Tab RxNorm: 772983 1 Tablet(s) PO daily 02/15/2012 08/12/2012 Inactive alprazolam 0.25 mg tablet RxNorm: 127173 1 Tablet(s) PO QDAY PRN 01/31/2012 02/29/2012 Inactive zolpidem 10 mg tablet RxNorm: 743942 1 Tablet(s) PO HS PRN 01/31/2012 02/29/2012 Inactive alprazolam 0.25 mg Tab RxNorm: 270697 1 Tablet(s) PO QDAY PRN 12/16/2011 01/14/2012 Inactive zolpidem 10 mg Tab RxNorm: 603514 1 Tablet(s) PO HS PRN 12/16/2011 01/14/2012 Inactive Norvasc 10 mg tablet RxNorm: 061298 1 Tablet(s) PO daily 12/02/2011 02/21/2012 Inactive Lipitor 10 mg tablet RxNorm: 280948 1 Tablet(s) PO daily 11/16/2011 05/13/2012 Inactive zolpidem 10 mg Tab RxNorm: 721964 1 Tablet(s) PO HS PRN 10/26/2011 12/15/2011 Inactive alprazolam 0.25 mg Tab RxNorm: 324648 1 Tablet(s) PO QDAY PRN 10/26/2011 12/15/2011 Inactive hydrochlorothiazide 25 mg tablet RxNorm: 761641 1 Tablet(s) PO daily 09/05/2011 03/02/2012 Inactive Synthroid 75 mcg tablet RxNorm: 446157 1 Tablet(s) PO daily 08/01/2011 02/26/2012 Inactive Abilify 2 mg Tab RxNorm: 531511 1 Tablet(s) PO QHS 08/01/2011 09/10/2012 Inactive dicyclomine 10 mg Cap RxNorm: 976578 1 Capsule(s) PO TID 08/01/2011 10/29/2011 Inactive alprazolam 0.25 mg Tab RxNorm: 332818 1 Tablet(s) PO QDAY PRN 07/26/2011 10/25/2011 Inactive Fioricet 50 mg-325 mg-40 mg tablet RxNorm: 658874 1 Tablet(s) PO Q4 PRN 07/14/2011 03/21/2012 Inactive Rocephin 500 mg Solution for Injection RxNorm: 277815 1 Milliliter(s) Inj 07/14/2011 08/01/2011 Inactive Nexium 40 mg Capsule, delayed release RxNorm: 854320 1 Capsule(s) PO daily 05/23/2011 10/06/2011 Inactive Bystolic 10 mg tablet RxNorm: 080516 1 Tablet(s) PO daily 05/23/2011 11/18/2011 Inactive Bystolic 10 mg Tab RxNorm: 109460 1 Tablet(s) PO daily 05/23/2011 05/22/2011 Inactive alprazolam 0.25 mg Tab RxNorm: 808044 1 Tablet(s) PO QDAY PRN 05/23/2011 07/25/2011 Inactive Influenza Virus Vaccine 0.5 mL RxNorm: IM 05/23/2011 05/23/2011 Inactive zolpidem 10 mg Tab RxNorm: 965954 1 Tablet(s) PO HS PRN 05/23/2011 10/25/2011 Inactive Rocephin 500 mg Solution for Injection RxNorm: 464207 1 Milliliter(s) Inj 05/03/2011 07/14/2011 Inactive Kenalog 40 mg/mL Susp for Injection RxNorm: 1960231 1 Milliliter(s) Inj 05/03/2011 07/14/2011 Inactive Bactrim DS 800 mg-160 mg Tab RxNorm: 240585 1 Tablet(s) PO BID 05/03/2011 08/01/2011 Inactive Flonase 50 mcg/actuation nasal spray,suspension RxNorm: 8658701 1 [place] NASAL daily No Start Date Active 1 spray to each nostril daily aspirin 81 mg tablet RxNorm: 661433 1 Tablet(s) PO daily No Start Date Active baclofen 10 mg tablet RxNorm: 273284 1 Tablet(s) PO TID as needed muscle spasms No Start Date Active Fish Oil 1,000 mg Cap RxNorm: 1 Capsule(s) PO TID No Start Date Active Flonase 50 mcg/actuation nasal spray,suspension RxNorm: 3610025 2 [place] NASAL daily No Start Date 08/05/2013 Inactive Duragesic 50 mcg/hr transdermal patch RxNorm: 166132 1 TD q72 hours No Start Date 01/13/2014 Inactive Vesicare 5 mg tablet RxNorm: 819964 1 Tablet(s) PO daily No Start Date 01/06/2015 Inactive Celebrex 200 mg capsule RxNorm: 634771 1 Capsule(s) PO daily No Start Date 04/02/2014 Inactive zolpidem 10 mg Tab RxNorm: 007831 1 Tablet(s) PO HS PRN No Start Date 05/22/2011 Inactive Zyrtec 10 mg Tab RxNorm: 9570480 1 Tablet(s) PO daily No Start Date 08/08/2012 Inactive Nexium 40 mg Cap RxNorm: 750383 1 Capsule(s) PO daily No Start Date 05/22/2011 Inactive ketoconazole 2 % Topical Cream RxNorm: 368017 Application TOP BID apply to affected area BID until gone No Start Date 08/30/2012 Inactive Cymbalta 60 mg capsule,delayed release RxNorm: 183776 1 Capsule(s) PO BID No Start Date 03/21/2012 Inactive alprazolam 0.25 mg Tab RxNorm: 399057 1 Tablet(s) PO QDAY PRN No Start Date 05/22/2011 Inactive Toprol XL 100 mg 24 hr Tab RxNorm: 165151 1 Tablet(s) PO BID No Start Date 04/25/2011 Inactive Xanax 0.25 mg tablet RxNorm: 944527 1 Tablet(s) PO daily as needed No Start Date 12/27/2015 Inactive Bystolic 10 mg Tab RxNorm: 928769 1 Tablet(s) PO daily No Start Date 05/22/2011 Inactive Fioricet 50 mg-325 mg-40 mg Tab RxNorm: 200921 1 Tablet(s) PO Q4 PRN No Start Date 07/13/2011 Inactive albuterol sulfate HFA 90 mcg/Actuation Aerosol Inhaler RxNorm: 9556152 1 INH Q4 PRN No Start Date 01/06/2015 Inactive Imitrex 50 mg tablet RxNorm: 524944 1 Tablet(s) PO Q8 as needed may repeat x1 dose in 1 hour of inital dose. No Start Date 02/24/2016 Inactive dc fioricet Tessalon 200 mg Cap RxNorm: 075839 1 Capsule(s) PO Q4 PRN No Start Date 02/14/2012 Inactive Zithromax Z-Sergio 250 mg tablet RxNorm: 667400 Tablet(s) PO No Start Date 11/10/2013 Inactive hydrochlorothiazide 25 mg Tab RxNorm: 145867 1 Tablet(s) PO daily No Start Date 09/04/2011 Inactive Deplin 15 mg Tab RxNorm: 1 Tablet(s) PO daily No Start Date 08/01/2011 Inactive Brilinta 90 mg tablet RxNorm: 1073823 1 Tablet(s) PO BID No Start Date 11/23/2015 Inactive Synthroid 75 mcg Tab RxNorm: 040616 1 Tablet(s) PO daily No Start Date 07/31/2011 Inactive scopolamine 1.5 mg 72 hr Transderm Patch RxNorm: 926329 1 Milligram(s) TD q72 hours No Start Date 11/25/2012 Inactive hydrocodone-acetaminophen 10 mg-325 mg tablet RxNorm: 0469391 1 Tablet(s) PO Q6 PRN No Start Date 08/07/2012 Inactive Phenergan with Codeine Syrup RxNorm: 5-10 Milliliter(s) PO Q6 PRN No Start Date 02/14/2012 Inactive Norvasc 10 mg Tab RxNorm: 263761 1 Tablet(s) PO daily No Start Date 12/01/2011 Inactive Zithromax Z-Sergio 250 mg Tab RxNorm: 106056 Tablet(s) PO No Start Date 08/01/2011 Inactive Medication Administered Medication Codes Instructions Start Date Status Kenalog 40 mg/mL suspension for injection RxNorm: 4247076 1Milliliter 03/14/2017 Active ceftriaxone 500 mg solution for injection RxNorm: 2983456 1Milliliter 11/28/2016 No longer Active Kenalog 40 mg/mL suspension for injection RxNorm: 2461665 Milliliter 11/07/2016 No longer Active ceftriaxone 500 mg solution for injection RxNorm: 8699715 11/07/2016 No longer Active ceftriaxone 500 mg solution for injection RxNorm: 9045491 12/07/2015 No longer Active Kenalog 40 mg/mL suspension for injection RxNorm: 9273611 1Milliliter 11/24/2015 No longer Active ceftriaxone 500 mg solution for injection RxNorm: 1117677 Milliliter 11/24/2015 No longer Active promethazine 25 mg/mL injection solution RxNorm: 002903 Milliliter 08/27/2015 No longer Active ketorolac 60 mg/2 mL intramuscular solution RxNorm: 296377 Milliliter 08/27/2015 No longer Active Kenalog 40 mg/mL suspension for injection RxNorm: 4708756 Milliliter 08/10/2015 No longer Active ceftriaxone 500 mg solution for injection RxNorm: 1568560 08/10/2015 No longer Active ceftriaxone 500 mg solution for injection RxNorm: 5585432 1Milliliter 07/28/2015 No longer Active Kenalog 40 mg/mL suspension for injection RxNorm: 0773375 Milliliter 03/19/2015 No longer Active Kenalog 40 mg/mL suspension for injection RxNorm: 7434810 Milliliter 06/23/2014 No longer Active ceftriaxone 500 mg solution for injection RxNorm: 932696 06/23/2014 No longer Active Rocephin 500 mg solution for injection RxNorm: 301267 1mlMilliliter 09/24/2013 No longer Active Rocephin 500 mg solution for injection RxNorm: 447334 1Milliliter 09/19/2013 No longer Active Rocephin 500 mg solution for injection RxNorm: 136259 1 07/10/2013 No longer Active Kenalog 40 mg/mL suspension for injection RxNorm: 8133362 1Milliliter 07/10/2013 No longer Active Kenalog 40 mg/mL Susp for Injection RxNorm: 4482249 1Milliliter 09/24/2012 No longer Active Rocephin 500 mg Solution for Injection RxNorm: 017784 02/15/2012 No longer Active Influenza Virus Vaccine [...] 15.3 g/dl 11/07/2016 Cbc With Differential Ord2 Neut% 63.7 % 11/07/2016 Cbc With Differential Ord2 HCT 47.0 % 11/07/2016 Cbc With Differential Ord2 MCV 96.5 fl 11/07/2016 Cbc With Differential Ord2 Lymph% 26.9 % 11/07/2016 Cbc With Differential Ord2 MCH 31.4 pg 11/07/2016 Cbc With Differential Ord2 [place]% 6.1 % 11/07/2016 Cbc With Differential Ord2 [...] 2.48 K/ul 11/07/2016 Cbc With Differential Ord2 [place] ABS# 0.6 K/ul 11/07/2016 Cbc With Differential Ord2 Eos ABS# 0.3 K/ul 11/07/2016 Cbc With Differential Ord2 Baso ABS# 0.1 K/ul 11/07/2016 Comp Metabolic Qer295 NA 139 mEq/L 11/07/2016 Comp Metabolic Yft096 K 3.8 mEq/L 11/07/2016 Comp Metabolic Xew089 CL 106 mEq/L 11/07/2016 Comp Metabolic Rki026 CO2 25.0 mEq/L 11/07/2016 Comp Metabolic Ipw657 ANION GAP 12 11/07/2016 Comp Metabolic Rqy942 GLUCOSE 98 mg/dL 11/07/2016 Comp Metabolic Tuu276 Creat 0.8 mg/dL 11/07/2016 Comp Metabolic Lsz483 eGFR 71 ml/min/1.73m2 11/07/2016 Comp Metabolic Dpk473 BUN 36 mg/dL 11/07/2016 Comp Metabolic Kfe257 B/C Ratio 42.9 Ratio 11/07/2016 Comp Metabolic Hdo050 CALCIUM 9.9 mg/dL 11/07/2016 Comp Metabolic Cbe486 ALK PHOS 57 U/L 11/07/2016 Comp Metabolic Vci447 AST(SGOT) 24 U/L 11/07/2016 Comp Metabolic Din376 ALT(SGPT) 28 U/L 11/07/2016 Comp Metabolic Zdb622 BILI T 0.4 mg/dL 11/07/2016 Comp Metabolic Qkm633 ALBUMIN 4.2 g/dL 11/07/2016 Comp Metabolic Jab784 TPRO 7.0 g/dL 11/07/2016 Comp Metabolic Bni448 GLOB 2.8 g/dL 11/07/2016 Comp Metabolic Gii312 A/G Ratio 1.5 Ratio 11/07/2016 Comp Metabolic Xka569 Osmo 286 mOsmo 11/07/2016 Free T4 Ffz137 FREE T4 0.75 ng/dL 11/07/2016 Tsh Ord6 hTSH II 3.46 uIU/mL 11/07/2016 Comp Metabolic Nfx580 NA 138 mEq/L 05/10/2016 Comp Metabolic Znd390 K 3.8 mEq/L 05/10/2016 Comp Metabolic Stl108 CL 102 mEq/L 05/10/2016 Comp Metabolic Tdb002 CO2 29.0 mEq/L 05/10/2016 Comp Metabolic Dkr745 ANION GAP 11 05/10/2016 Comp Metabolic Yvm102 GLUCOSE 107 mg/dL 05/10/2016 Comp Metabolic Zog185 Creat 0.7 mg/dL 05/10/2016 Comp Metabolic Oqj430 eGFR 93 ml/min/1.73m2 05/10/2016 Comp Metabolic Afm287 BUN 18 mg/dL 05/10/2016 Comp Metabolic Zes306 B/C Ratio 26.9 Ratio 05/10/2016 Comp Metabolic Cla614 CALCIUM 9.8 mg/dL 05/10/2016 Comp Metabolic Kya620 ALK PHOS 60 U/L 05/10/2016 Comp Metabolic Fri812 AST(SGOT) 21 U/L 05/10/2016 Comp Metabolic Ugy027 ALT(SGPT) 23 U/L 05/10/2016 Comp Metabolic Ayy742 BILI T 0.5 mg/dL 05/10/2016 Comp Metabolic Fhh276 ALBUMIN 4.1 g/dL 05/10/2016 Comp Metabolic Bvj204 TPRO 6.7 g/dL 05/10/2016 Comp Metabolic Mti266 GLOB 2.7 g/dL 05/10/2016 Comp Metabolic Plx730 A/G Ratio 1.5 Ratio 05/10/2016 Comp Metabolic Ykr446 Osmo 278 mOsmo 05/10/2016 Lipid Ord30 CHOL 169 mg/dL 05/10/2016 Lipid Ord30 HDL 50.0 mg/dl 05/10/2016 Lipid Ord30 TRIG 161 mg/dL 05/10/2016 Lipid Ord30 LDL 87 mg/dL 05/10/2016 Lipid Ord30 C/HDL 3.4 Ratio 05/10/2016 Comp Metabolic Vop298 NA 137 mEq/L 06/12/2015 Comp Metabolic Ome230 K 3.8 mEq/L 06/12/2015 Comp Metabolic Oqk203 CL 104 mEq/L 06/12/2015 Comp Metabolic Mzt352 CO2 24.0 mEq/L 06/12/2015 Comp Metabolic Mwu183 ANION GAP 13 06/12/2015 Comp Metabolic Vyx849 GLUCOSE 92 mg/dL 06/12/2015 Comp Metabolic Qnv913 Creat 0.7 mg/dL 06/12/2015 Comp Metabolic Dee551 eGFR 87 ml/min/1.73m2 06/12/2015 Comp Metabolic Jcx020 BUN 31 mg/dL 06/12/2015 Comp Metabolic Qce515 B/C Ratio 43.7 Ratio 06/12/2015 Comp Metabolic Rxa399 CALCIUM 10.0 mg/dL 06/12/2015 Comp Metabolic Qbd161 ALK PHOS 58 U/L 06/12/2015 Comp Metabolic Wxd269 AST(SGOT) 32 U/L 06/12/2015 Comp Metabolic Mes138 ALT(SGPT) 33 U/L 06/12/2015 Comp Metabolic Clc377 BILI T 0.5 mg/dL 06/12/2015 Comp Metabolic Ikl169 ALBUMIN 4.1 g/dL 06/12/2015 Comp Metabolic Wjj408 TPRO 6.6 g/dL 06/12/2015 Comp Metabolic Rwb170 GLOB 2.5 g/dL 06/12/2015 Comp Metabolic Jkz482 A/G Ratio 1.6 Ratio 06/12/2015 Comp Metabolic Hwc103 Osmo 280 mOsmo 06/12/2015 Cbc With Differential [...] Differential Ord2 RDW 14.2 % 06/12/2015 CBC [id number] WBC 8.7 10e9/L 04/30/2013 CBC [id number] RBC 4.63 10e12/L 04/30/2013 CBC [id number] HGB 14.1 g/dL 04/30/2013 CBC 0930946 HCT DET 42.2 % 04/30/2013 CBC 1659828 MCV 91.1 fL 04/30/2013 CBC 0938180 MCH 30.5 pg 04/30/2013 CBC 6948711 MCHC 33.4 g/dL 04/30/2013 CBC 8020912 PLT 248 10e9/L 04/30/2013 CBC [id number] MPV 12.1 fL 04/30/2013 CBC [id number] LARA % 59.0 % 04/30/2013 CBC 8480138 LY % 27.6 % 04/30/2013 CBC 9404424 MON % 8.0 % 04/30/2013 CBC 1523079 EOS % 4.8 % 04/30/2013 CBC [id number] BASO % 0.6 % 04/30/2013 CBC 9814300 RDW 13.3 % 04/30/2013 CBC 1340395 ABS LARA 5.13 10e9/L 04/30/2013 CBC [id number] ABS LYMPH 2.40 10e9/L 04/30/2013 CBC [id number] ABS MONO 0.70 10e9/L 04/30/2013 CBC 6007299 ABS EOS 0.42 10e9/L 04/30/2013 CBC 0585200 ABS BASO 0.05 10e9/L 04/30/2013 CBC 3296325 RDW-SD 43.1 fL 04/30/2013 TSH [id number] TSH 4.339 uIU/ML 04/30/2013 A1C HPLC 8717468 A1C HPLC 50195-4 5.6 % 04/30/2013 FREE T4 3950781 FREE T4 0.84 NG/DL 04/30/2013 GFR CALC 3171382 GFR AA >60 ML/MIN 04/30/2013 GFR CALC 8408923 GFR NON-AA >60 ML/MIN 04/30/2013 CHEM 14 1534081 AST 22 U/L 04/30/2013 CHEM 14 2375420 ALT 22 IU/L 04/30/2013 CHEM 14 5864867 BUN 24 MG/DL 04/30/2013 CHEM 14 4927001 ALBUMIN 4.2 GM/DL 04/30/2013 CHEM 14 8133408 CHLORIDE 107 MMOL/L 04/30/2013 CHEM 14 0483409 BILI TOT 0.3 MG/DL 04/30/2013 CHEM 14 6754819 ALK PHOS 88 U/L 04/30/2013 CHEM 14 6309878 SODIUM 141 MMOL/L 04/30/2013 CHEM 14 3517487 CREATININE 0.60 MG/DL 04/30/2013 CHEM 14 3473089 CALCIUM 9.9 MG/DL 04/30/2013 CHEM 14 4263398 POTASSIUM 3.7 MMOL/L 04/30/2013 CHEM 14 9673772 PROT TOT 6.6 GM/DL 04/30/2013 CHEM 14 2361074 GLUCOSE 123 MG/DL 04/30/2013 CHEM 14 0106625 BICARB 25 MMOL/L 04/30/2013 CHEM 14 5857682 ANION GAP 9 MEQ/L 04/30/2013 LIPID GRP 1848679 HDL TEST 46 MG/DL 04/30/2013 LIPID GRP 2884451 TRIG 148 MG/DL 04/30/2013 LIPID GRP TEST LDL 75 MG/DL 04/30/2013 LIPID GRP CHOL 151 MG/DL 04/30/2013 LIPID GRP RCHOL/HDL 3.28 RATIO 04/30/2013 TSH 3372047 TSH 3.341 uIU/ML 11/29/2012 CBC 8928412 WBC 8.4 10e9/L 11/29/2012 CBC 1001918 RBC 4.77 10e12/L 11/29/2012 CBC 4680340 HGB 14.9 g/dL 11/29/2012 CBC 9490329 HCT DET 44.2 % 11/29/2012 CBC 6286857 MCV 92.7 fL 11/29/2012 CBC 5449504 MCH 31.2 pg 11/29/2012 CBC 4108757 MCHC 33.7 g/dL 11/29/2012 CBC 9771215 PLT 253 10e9/L 11/29/2012 CBC 4814250 MPV 11.8 fL 11/29/2012 CBC 9537639 LARA % 54.9 % 11/29/2012 CBC 8428585 LY % 29.0 % 11/29/2012 CBC 5611328 MON % 10.4 % 11/29/2012 CBC 8285887 EOS % 5.1 % 11/29/2012 CBC 0039732 BASO % 0.6 % 11/29/2012 CBC 6253860 RDW 13.8 % 11/29/2012 CBC 7201920 ABS LARA 4.61 10e9/L 11/29/2012 CBC 7115783 ABS LYMPH 2.44 10e9/L 11/29/2012 CBC 8013641 ABS MONO 0.87 10e9/L 11/29/2012 CBC 9580425 ABS EOS 0.43 10e9/L 11/29/2012 CBC 3031346 ABS BASO 0.05 10e9/L 11/29/2012 CBC 8190881 RDW-SD 45.9 fL 11/29/2012 CHEM 14 0730164 AST 25 U/L 11/29/2012 CHEM 14 6778610 ALT 26 IU/L 11/29/2012 CHEM 14 0539603 BUN 25 MG/DL 11/29/2012 CHEM 14 5604000 ALBUMIN 4.4 GM/DL 11/29/2012 CHEM 14 3264714 CHLORIDE 106 MMOL/L 11/29/2012 CHEM 14 5254918 BILI TOT 0.4 MG/DL 11/29/2012 CHEM 14 3490248 ALK PHOS 86 U/L 11/29/2012 CHEM 14 1792436 SODIUM 141 MMOL/L 11/29/2012 CHEM 14 3877838 CREATININE 0.80 MG/DL 11/29/2012 CHEM 14 6944202 CALCIUM 9.7 MG/DL 11/29/2012 CHEM 14 9819477 POTASSIUM 4.0 MMOL/L 11/29/2012 CHEM 14 2316450 PROT TOT 6.6 GM/DL 11/29/2012 CHEM 14 6309028 GLUCOSE 112 MG/DL 11/29/2012 CHEM 14 5674256 BICARB 29 MMOL/L 11/29/2012 CHEM 14 4617685 ANION GAP 6 MEQ/L 11/29/2012 A1C HPLC 2842027 A1C HPLC 68212-8 5.5 % 11/29/2012 LIPID GRP HDL TEST 54 MG/DL 11/29/2012 LIPID GRP TRIG 77 MG/DL 11/29/2012 LIPID GRP TEST LDL 78 MG/DL 11/29/2012 LIPID GRP CHOL 147 MG/DL 11/29/2012 LIPID GRP RCHOL/HDL 2.72 RATIO 11/29/2012 FREE T4 3174598 FREE T4 1.23 NG/DL 11/29/2012 GFR CALC 2722856 GFR AA >60 ML/MIN 11/29/2012 GFR CALC 5344856 GFR NON-AA >60 ML/MIN 11/29/2012 CHEM 14 9185712 AST 23 U/L 08/07/2012 CHEM 14 1814096 ALT 34 IU/L 08/07/2012 CHEM 14 8478716 BUN 26 MG/DL 08/07/2012 CHEM 14 2962377 ALBUMIN 4.4 GM/DL 08/07/2012 CHEM 14 2836656 CHLORIDE 105 MMOL/L 08/07/2012 CHEM 14 2458560 BILI TOT 0.5 MG/DL 08/07/2012 CHEM 14 6948181 ALK PHOS 79 U/L 08/07/2012 CHEM 14 8566408 SODIUM 140 MMOL/L 08/07/2012 CHEM 14 7257809 CREATININE 0.71 MG/DL 08/07/2012 CHEM 14 5119303 CALCIUM 10.4 MG/DL 08/07/2012 CHEM 14 1110733 POTASSIUM 3.8 MMOL/L 08/07/2012 CHEM 14 6755078 PROT TOT 6.8 GM/DL 08/07/2012 CHEM 14 3170874 GLUCOSE 104 MG/DL 08/07/2012 CHEM 14 6009870 BICARB 27 MMOL/L 08/07/2012 CHEM 14 5139063 ANION GAP 8 MEQ/L 08/07/2012 A1C HPLC 5398073 A1C HPLC 99075-4 5.4 % 08/07/2012 FREE T4 1829533 FREE T4 1.11 NG/DL 08/07/2012 LIPID GRP HDL TEST 50 MG/DL 08/07/2012 LIPID GRP TRIG 127 MG/DL 08/07/2012 LIPID GRP TEST LDL 93 MG/DL 08/07/2012 LIPID GRP CHOL 168 MG/DL 08/07/2012 LIPID GRP RCHOL/HDL 3.36 RATIO 08/07/2012 CBC 3527296 WBC 8.7 10e9/L 08/07/2012 CBC 9942983 RBC 4.67 10e12/L 08/07/2012 CBC 3953491 HGB 14.4 g/dL 08/07/2012 CBC 9138367 HCT DET 42.8 % 08/07/2012 CBC 2541165 MCV 91.6 fL 08/07/2012 CBC 9579296 MCH 30.8 pg 08/07/2012 CBC 9553486 MCHC 33.6 g/dL 08/07/2012 CBC 1855599 PLT 271 10e9/L 08/07/2012 CBC 4465154 MPV 12.3 fL 08/07/2012 CBC 9654315 LARA % 50.6 % 08/07/2012 CBC 9469609 LY % 34.9 % 08/07/2012 CBC 1434738 MON % 9.1 % 08/07/2012 CBC 7509705 EOS % 5.1 % 08/07/2012 CBC 7895725 BASO % 0.3 % 08/07/2012 CBC 5812070 RDW 13.6 % 08/07/2012 CBC 7957938 ABS LARA 4.40 10e9/L 08/07/2012 CBC 6974895 ABS LYMPH 3.04 10e9/L 08/07/2012 CBC 4215544 ABS MONO 0.79 10e9/L 08/07/2012 CBC 7666245 ABS EOS 0.44 10e9/L 08/07/2012 CBC 9238814 ABS BASO 0.03 10e9/L 08/07/2012 CBC 8613055 RDW-SD 44.1 fL 08/07/2012 TSH 0444165 TSH 7.419 uIU/ML 08/07/2012 GFR CALC 8624102 GFR AA >60 ML/MIN 08/07/2012 GFR CALC 0819850 GFR NON-AA >60 ML/MIN 08/07/2012 A1C HPLC 4262779 A1C HPLC 32562-4 5.3 % 02/21/2012 TSH 3058581 TSH 0.832 uIU/ML 02/16/2012 FREE T4 7022386 FREE T4 1.04 NG/DL 02/16/2012 GFR CALC 0129330 GFR AA >60 ML/MIN 02/16/2012 GFR CALC 8960053 GFR NON-AA >60 ML/MIN 02/16/2012 BMP 8078836 GLUCOSE 112 MG/DL 02/16/2012 BMP 4715638 CREATININE 0.65 MG/DL 02/16/2012 BMP 8758827 BUN 17 MG/DL 02/16/2012 BMP 5215005 SODIUM 144 MMOL/L 02/16/2012 BMP 5954086 POTASSIUM 4.0 MMOL/L 02/16/2012 BMP 5103804 CHLORIDE 107 MMOL/L 02/16/2012 BMP 7464090 BICARB 29 MMOL/L 02/16/2012 BMP 6631305 ANION GAP 8 MEQ/L 02/16/2012 BMP 1676153 CALCIUM 9.5 MG/DL 02/16/2012 CBC 4302233 WBC 7.1 10e9/L 02/16/2012 CBC 9880144 RBC 4.47 10e12/L 02/16/2012 CBC 0146797 HGB 13.5 g/dL 02/16/2012 CBC 4243760 HCT DET 40.7 % 02/16/2012 CBC 2402866 MCV 91.1 fL 02/16/2012 CBC 1723466 MCH 30.2 pg 02/16/2012 CBC 6661074 MCHC 33.2 g/dL 02/16/2012 CBC 4052893 PLT 238 10e9/L 02/16/2012 CBC 6452931 MPV 11.4 fL 02/16/2012 CBC 1500674 LARA % 55.7 % 02/16/2012 CBC 3023501 LY % 29.6 % 02/16/2012 CBC 6224189 MON % 9.2 % 02/16/2012 CBC 9165560 EOS % 5.1 % 02/16/2012 CBC 0992726 BASO % 0.4 % 02/16/2012 CBC 5034263 RDW 13.0 % 02/16/2012 CBC 7509114 ABS LARA 3.95 10e9/L 02/16/2012 CBC 5379812 ABS LYMPH 2.10 10e9/L 02/16/2012 CBC 5493685 ABS MONO 0.65 10e9/L 02/16/2012 CBC 3237354 ABS EOS 0.36 10e9/L 02/16/2012 CBC 9664189 ABS BASO 0.03 10e9/L 02/16/2012 CBC 4385990 RDW-SD 42.4 fL 02/16/2012 URINALYSIS NONAUTO W/O SCOPE 28198 Specific [place] 1.015 DateTime(Free Text in Aprima) URINALYSIS NONAUTO W/O SCOPE 91462 PH 7 DateTime(Free Text in [employer]) URINALYSIS NONAUTO W/O SCOPE 76316 GLUCOSE neg DateTime(Free Text in [employer]) URINALYSIS NONAUTO W/O SCOPE 39637 Protein 1+ DateTime(Free Text in [employer]) URINALYSIS NONAUTO W/O SCOPE 29738 Blood neg DateTime(Free Text in [employer]) URINALYSIS NONAUTO W/O SCOPE 32273 Bilirubin neg DateTime(Free Text in [employer]) URINALYSIS NONAUTO W/O SCOPE 66056 Ketones neg DateTime(Free Text in [employer]) URINALYSIS NONAUTO W/O SCOPE 44796 Urobilinogen neg DateTime(Free Text in [employer]) URINALYSIS NONAUTO W/O SCOPE 57322 Nitrite postive DateTime(Free Text in [employer]) URINALYSIS NONAUTO W/O SCOPE 95712 Leukocytes 3+ DateTime(Free Text in [employer]) URINALYSIS NONAUTO W/O SCOPE 81286 Specific [place] 1.030 DateTime(Free Text in Apr[employer]) URINALYSIS NONAUTO W/O SCOPE 39955 PH 6 DateTime(Free Text in Apr[employer]) URINALYSIS NONAUTO W/O SCOPE 45784 GLUCOSE neg DateTime(Free Text in Apr[employer]) URINALYSIS NONAUTO W/O SCOPE 76666 Protein neg DateTime(Free Text in Apr[employer]) URINALYSIS NONAUTO W/O SCOPE 48529 Blood neg DateTime(Free Text in [employer]) URINALYSIS NONAUTO W/O SCOPE 94739 Bilirubin neg DateTime(Free Text in Apr[employer]) URINALYSIS NONAUTO W/O SCOPE 88172 Ketones neg DateTime(Free Text in Apr[employer]) URINALYSIS NONAUTO W/O SCOPE 01000 Urobilinogen neg DateTime(Free Text in Apr[employer]) URINALYSIS NONAUTO W/O SCOPE 78551 Nitrite neg DateTime(Free Text in Apr[employer]) URINALYSIS NONAUTO W/O SCOPE 24568 Leukocytes trace DateTime(Free Text in Apr[employer]) URINALYSIS NONAUTO W/O SCOPE 92080 Specific [place] 1.005 DateTime(Free Text in Apr[employer]) URINALYSIS NONAUTO W/O SCOPE 02422 PH 5 DateTime(Free Text in Apr[employer]) URINALYSIS NONAUTO W/O SCOPE 87770 GLUCOSE neg DateTime(Free Text in Apr[employer]) URINALYSIS NONAUTO W/O SCOPE 52218 Protein neg DateTime(Free Text in Apr[employer]) URINALYSIS NONAUTO W/O SCOPE 02886 Blood neg DateTime(Free Text in Aprima) URINALYSIS NONAUTO W/O SCOPE 46237 Bilirubin neg DateTime(Free Text in Apr[employer]) URINALYSIS NONAUTO W/O SCOPE 97235 Ketones neg DateTime(Free Text in Aprima) URINALYSIS NONAUTO W/O SCOPE 02016 Urobilinogen neg DateTime(Free Text in Apr[employer]) URINALYSIS NONAUTO W/O SCOPE 45954 Nitrite neg DateTime(Free Text in Apr[employer]) URINALYSIS NONAUTO W/O SCOPE 18675 Leukocytes neg DateTime(Free Text in Aprima) UA 15667 Specific [place] 1.030 DateTime(Free Text in Aprima) UA 56532 PH 5 DateTime(Free Text in Aprima) UA 08297 GLUCOSE neg DateTime(Free Text in Aprima) UA 44313 Protein trace DateTime(Free Text in Aprima) UA 93434 Blood large DateTime(Free Text in Aprima) UA 61205 Bilirubin neg DateTime(Free Text in Aprima) UA 19641 Ketones neg DateTime(Free Text in Aprima) UA 84745 Urobilinogen neg DateTime(Free Text in Aprima) UA 74731 Nitrite neg DateTime(Free Text in Aprima) UA 60752 Leukocytes large DateTime(Free Text in ) Review [...] Codes Date TRIAMCINOLONE ACET INJ NOS CPT-4: D8844Qczapxo 03/14/2017 ROCEPHIN, PER 250 MG CPT-4: M6197Orfnuyb 03/14/2017 DESTRUCT PREMALG LESION CPT-4: 37309Ixoygyt 12/05/2016 DESTRUCT PREMALG LES 2-14 CPT-4: 20197Rrllxgy 12/05/2016 URINALYSIS NONAUTO W/O SCOPE CPT-4: 36327Oewzgky 11/28/2016 ROCEPHIN, PER 250 MG CPT-4: N1995Suaonwr 11/28/2016 PPPS, SUBSEQ VISIT CPT-4: J8268Fhfyfzm 11/07/2016 THER/PROPH/DIAG INJ SC/IM CPT-4: 09901Lgndwpp 11/07/2016 TRIAMCINOLONE ACET INJ NOS CPT-4: G4216Wraqyze 11/07/2016 ROCEPHIN, PER 250 MG CPT-4: C1649Tbswify 11/07/2016 THER/PROPH/DIAG INJ SC/IM CPT-4: 28962Xyrfdmf 08/15/2016 TRIAMCINOLONE ACET INJ NOS CPT-4: H7974Slfagna 08/15/2016 ROCEPHIN, PER 250 MG CPT-4: R7100Gpjtcuy 08/15/2016 URINALYSIS NONAUTO W/O SCOPE CPT-4: 10347Rqhhlgp 05/05/2016 ROCEPHIN, PER 250 MG CPT-4: W6865Hxcmjcu 12/07/2015 TRIAMCINOLONE ACET INJ NOS CPT-4: F0271Cfbeyse 11/24/2015 ROCEPHIN, PER 250 MG CPT-4: O2112Dbbmsxl 11/24/2015 THER/PROPH/DIAG INJ SC/IM CPT-4: 89806Vhdhust 11/24/2015 THER/PROPH/DIAG INJ SC/IM CPT-4: 62057Ltxlhtk 08/27/2015 KETOROLAC TROMETHAMINE INJ CPT-4: Z7693Vxpcdnj 08/27/2015 PROMETHAZINE HCL INJECTION CPT-4: M7777Fmedtem 08/27/2015 THER/PROPH/DIAG INJ SC/IM CPT-4: 23737Qrzmmal 08/10/2015 TRIAMCINOLONE ACET INJ NOS CPT-4: K3687Tmmmcwq 08/10/2015 ROCEPHIN, PER 250 MG CPT-4: O9231Yfkvdlp 08/10/2015 C WOUN RTS (CULTURE OTHR SPECIMN AEROBIC) CPT-4: 86283Fdiwctq 07/28/2015 THER/PROPH/DIAG INJ SC/IM CPT-4: 66820Empszvm 03/19/2015 TRIAMCINOLONE ACET INJ NOS CPT-4: Y8441Eyfjbky 03/19/2015 ROCEPHIN, PER 250 MG CPT-4: J4179Eyjnxvs 06/23/2014 TRIAMCINOLONE ACET INJ NOS CPT-4: G6136Ngdwrpn 06/23/2014 INJ TRIGGER POINT 1/2 MUSCL CPT-4: 72097Nejqwxp 06/05/2014 URINALYSIS NONAUTO W/O SCOPE CPT-4: 63612Ldoizdw 02/11/2014 URINALYSIS NONAUTO W/O SCOPE CPT-4: 34178Jlkhkjk 10/15/2013 ROCEPHIN, PER 250 MG CPT-4: C0174Gbbyptj 09/24/2013 THER/PROPH/DIAG INJ SC/IM CPT-4: 47065Rbkstdn 09/19/2013 ROCEPHIN, PER 250 MG CPT-4: L4217Rqfgqia 09/19/2013 PRESCRIP TRANSMIT VIA ERX SY CPT-4: B1768Saigoli 08/05/2013 ROCEPHIN, PER 250 MG CPT-4: S0865Igplvgo 07/10/2013 THER/PROPH/DIAG INJ SC/IM CPT-4: 08682Yhqfwyn 07/10/2013 TRIAMCINOLONE ACET INJ NOS CPT-4: W1535Bvliwkl 07/10/2013 PRESCRIP TRANSMIT VIA ERX SY CPT-4: B6478Pwjvsew 07/10/2013 [id number] EST. PATIENT, LEVEL III CPT-4: 77862Tfglgmb 06/03/2013 PRESCRIP TRANSMIT VIA ERX SY CPT-4: Z1894Sjexsvu 06/03/2013 PRESCRIP TRANSMIT VIA ERX SY CPT-4: U0204Gmldemg 05/07/2013 ROUTINE VENIPUNCTURE CPT-4: 32666Recfwuo 04/30/2013 ROUTINE VENIPUNCTURE CPT-4: 91406Xdoaasx 11/29/2012 TRIAMCINOLONE ACET INJ NOS CPT-4: H9417Jglconf 09/24/2012 THER/PROPH/DIAG INJ SC/IM CPT-4: 55550Rajozar 09/24/2012 URINALYSIS NONAUTO W/O SCOPE CPT-4: 98890Kryrnqg 09/24/2012 PRESCRIP TRANSMIT VIA ERX SY CPT-4: U3410Krsssnh 09/24/2012 PRESCRIP TRANSMIT VIA ERX SY CPT-4: F6794Sabxikq 09/10/2012 PRESCRIP TRANSMIT VIA ERX SY CPT-4: H1085Nlzbywm 08/08/2012 ROUTINE VENIPUNCTURE CPT-4: 31224Lasfwuu 08/07/2012 ROUTINE VENIPUNCTURE CPT-4: 97319Rfhfmev 02/16/2012 URINALYSIS NONAUTO W/O SCOPE CPT-4: 47604Omavuxk 02/15/2012 ROCEPHIN, PER 250 MG CPT-4: L0833Dpyvwoz 02/15/2012 PRESCRIP TRANSMIT VIA ERX SY CPT-4: N9733Rsdgrmj 02/15/2012 ROUTINE VENIPUNCTURE CPT-4: 60342Ylfgthx 11/08/2011 ROCEPHIN, PER 250 MG CPT-4: P9721Vvbzkyh 07/14/2011 THER/PROPH/DIAG INJ SC/IM CPT-4: 06312Sspofzz 07/14/2011 Influenza Virus Vaccine, Split Virus, >3 Yrs, IM CPT-4: 79349Carxvrh 05/23/2011 IMMUNIZATION ADMIN CPT-4: 90733Thknacy 05/23/2011 THER/PROPH/DIAG INJ SC/IM CPT-4: 91821Ijwvagg 05/03/2011 ROCEPHIN, PER 250 MG CPT-4: I9374Mdpnlkv 05/03/2011 TRIAMCINOLONE ACET INJ NOS CPT-4: P1468Glcsoql 05/03/2011 Vital Signs Date Vital 03/14/2017 Blood Pressure 1: 146/82 Code: 8480-6 BMI: 30.9 Code: 35868-2 Heart Rate 1: 64 bpm Height: 4'11" SpO2: 94% Weight: 153 lbs 02/20/2017 Blood Pressure 1: 142/80 Code: 8480-6 BMI: 30.9 Code: 26383-1 Heart Rate 1: 75 bpm Height: 4'11" SpO2: 97% Weight: 153 lbs 02/06/2017 Blood Pressure 1: 138/90 Code: 8480-6 BMI: 31.5 Code: 74624-7 Heart Rate 1: 61 bpm Height: 4'11" SpO2: 98% Weight: 156 lbs 12/05/2016 Blood Pressure 1: 122/72 Code: 8480-6 Heart Rate 1: 59 bpm Height: 4'11" SpO2: 98% Weight: 11/28/2016 Blood Pressure 1: 154/86 Code: 8480-6 BMI: 31.3 Code: 48031-6 Heart Rate 1: 64 bpm Height: 4'11" SpO2: 94% Temperature: 36.2 (C) / 97.2 (F) Weight: 155 lbs 11/07/2016 Blood Pressure 1: 128/64 Code: 8480-6 BMI: 31.5 Code: 26476-7 Heart Rate 1: 59 bpm Height: 4'11" SpO2: 97% Weight: 156 lbs 08/15/2016 Blood Pressure 1: 110/62 Code: 8480-6 BMI: 31.5 Code: 39812-0 Heart Rate 1: 76 bpm Height: 4'11" SpO2: 97% Weight: 156 lbs 06/07/2016 Blood Pressure 1: 120/80 Code: 8480-6 BMI: 32.9 Code: 38706-1 Heart Rate 1: 63 bpm Height: 4'11" SpO2: 93% Temperature: 36.5 (C) / 97.7 (F) Weight: 163 lbs 03/15/2016 Blood Pressure 1: 90/42 Code: 8480-6 Heart Rate 1: 65 bpm SpO2: 94% 03/14/2016 Blood Pressure 1: 188/110 Code: 8480-6 Heart Rate 1: 68 bpm SpO2: 96% 02/22/2016 Blood Pressure 1: 158/80 Code: 8480-6 BMI: 32.7 Code: 25157-0 Heart Rate 1: 71 bpm Height: 4'11" SpO2: 95% Weight: 162 lbs 12/07/2015 Blood Pressure 1: 140/88 Code: 8480-6 BMI: 32.9 Code: 70073-7 Heart Rate 1: 99 bpm Height: 4'11" SpO2: 94% Temperature: 35.9 (C) / 96.6 (F) Weight: 163 lbs 11/24/2015 Blood Pressure 1: 144/78 Code: 8480-6 BMI: 33.7 Code: 18893-6 Heart Rate 1: 60 bpm Height: 4'11" SpO2: 98% Temperature: 36.6 (C) / 97.9 (F) Weight: 167 lbs 08/27/2015 Blood Pressure 1: 164/82 Code: 8480-6 BMI: 32.3 Code: 29989-6 Heart Rate 1: 60 bpm Height: 4'11" SpO2: 93% Weight: 160 lbs 08/10/2015 Blood Pressure 1: 130/60 Code: 8480-6 BMI: 32.5 Code: 57891-6 Heart Rate 1: 64 bpm Height: 4'11" SpO2: 97% Weight: 161 lbs 07/28/2015 Blood Pressure 1: 124/68 Code: 8480-6 BMI: 32.5 Code: 37379-5 Heart Rate 1: 69 bpm Height: 4'11" SpO2: 97% Weight: 161 lbs 06/11/2015 Blood Pressure 1: 148/80 Code: 8480-6 BMI: 32.9 Code: 10557-3 Heart Rate 1: 70 bpm Height: 4'11" SpO2: 94% Weight: 163 lbs 03/19/2015 Blood Pressure 1: 150/102 Code: 8480-6 Blood Pressure 2: 152/92 Code: 8480-6 BMI: 32.5 Code: 85785-2 Heart Rate 1: 71 bpm Height: 4'11" SpO2: 96% Weight: 161 lbs 01/07/2015 Blood Pressure 1: 126/84 Code: 8480-6 Heart Rate 1: 80 bpm Height: 4'11" 09/23/2014 Blood Pressure 1: 112/72 Code: 8480-6 BMI: 33.9 Code: 40652-5 Heart Rate 1: 72 bpm Height: 4'11" Weight: 168 lbs 08/05/2014 Blood Pressure 1: 140/86 Code: 8480-6 BMI: 33.3 Code: 09374-4 Height: 4'11" Weight: 165 lbs 06/23/2014 Blood Pressure 1: 132/70 Code: 8480-6 BMI: 32.9 Code: 60694-1 Heart Rate 1: 58 bpm Height: 4'11" Temperature: 36.0 (C) / 96.8 (F) Weight: 163 lbs 06/05/2014 Blood Pressure 1: 121/85 Code: 8480-6 BMI: 34.3 Code: 50488-5 Height: 4'11" Weight: 170 lbs 04/03/2014 Blood Pressure 1: 128/80 Code: 8480-6 Heart Rate 1: 88 bpm Weight: 167 lbs 03/07/2014 Blood Pressure 1: 122/82 Code: 8480-6 BMI: 33.9 Code: 28295-8 Heart Rate 1: 68 bpm Height: 4'11" Weight: 168 lbs 11/21/2013 Blood Pressure 1: 100/58 Code: 8480-6 BMI: 33.7 Code: 48498-3 Heart Rate 1: 64 bpm Height: 4'11" Weight: 167 lbs 09/24/2013 Blood Pressure 1: 148/88 Code: 8480-6 Heart Rate 1: 68 bpm Weight: 09/19/2013 Blood Pressure 1: 120/80 Code: 8480-6 BMI: 33.9 Code: 16078-1 Heart Rate 1: 80 bpm Height: 4'11" Temperature: 36.9 (C) / 98.5 (F) Weight: 168 lbs 08/05/2013 Blood Pressure 1: 128/80 Code: 8480-6 BMI: 34.3 Code: 87797-0 Heart Rate 1: 64 bpm Height: 4'11" Temperature: 36.2 (C) / 97.2 (F) Weight: 170 lbs 07/10/2013 Blood Pressure 1: 120/84 Code: 8480-6 BMI: 36.0 Code: 33800-8 Heart Rate 1: 90 bpm Height: 4'11" SpO2: 97% Temperature: 36.8 (C) / 98.2 (F) Weight: 178 lbs 06/03/2013 Blood Pressure 1: 136/94 Code: 8480-6 BMI: 34.7 Code: 98333-5 Heart Rate 1: 68 bpm Height: 4'11" Temperature: 36.7 (C) / 98.0 (F) Weight: 172 lbs 05/13/2013 Blood Pressure 1: 132/90 Code: 8480-6 Heart Rate 1: 68 bpm 05/07/2013 Blood Pressure 1: 168/100 Code: 8480-6 BMI: 34.3 Code: 90406-0 Heart Rate 1: 76 bpm Height: 4'11" Weight: 170 lbs 12/03/2012 Blood Pressure 1: 142/78 Code: 8480-6 BMI: 33.5 Code: 69797-1 Heart Rate 1: 76 bpm Height: 4'11" Weight: 166 lbs 09/24/2012 Blood Pressure 1: 116/70 Code: 8480-6 Heart Rate 1: 68 bpm Respiratory Rate: 16 bpm Temperature: 36.9 (C) / 98.4 (F) Weight: 162 lbs 09/10/2012 Blood Pressure 1: 116/80 Code: 8480-6 BMI: 33.7 Code: 50266-3 Heart Rate 1: 76 bpm Height: 4'11" [...] 1: 149/85 Code: 8480-6 BMI: 32.9 Code: 45446-9 Heart Rate 1: 79 bpm Height: 4'11" Weight: 164 lbs 05/03/2011 Blood Pressure 1: 122/79 Code: 8480-6 BMI: 30.8 Code: 60874-9 Heart Rate 1: 72 bpm Height: 5'1" Weight: 163 lbs 04/25/2011 Blood Pressure 1: 137/84 Code: 8480-6 BMI: 31.0 Code: 38987-9 Heart Rate 1: 63 bpm Height: 5'1" [...] days ago 02/15/2012 while visiting mother in [place] had uti and was put on pyridum [...] surg in december. then took trip to [facility] to see mother and has had swelling [...] Quality chronic 08/01/2011 states went shopping on [email or web address] over night without taking any of medications [...] data Encounters Encounter Performer Location Codes Date ([id number]) [id number] EST. PATIENT, LEVEL III Diagnosis: Acute recurrent maxillary sinusitis[ICD10: J01.01] Shahida Goldman MD, [facility] CPT-4: 05100 03/14/2017 [id number] EST. PATIENT, LEVEL IV Diagnosis: Epigastric pain[ICD10: R10.13] Diagnosis: Left upper quadrant pain[ICD10: R10.12] Diagnosis: Left lower quadrant pain[ICD10: R10.32] Isabelle Goldman MD, [facility] CPT-4: 89191 02/20/2017 [id number]) 72967 EST. PATIENT, LEVEL IV Diagnosis: Generalized anxiety disorder[ICD10: F41.1] Diagnosis: Major depressive disorder, recurrent, moderate[ICD10: F33.1] Diagnosis: Left upper quadrant pain[ICD10: R10.12] Diagnosis: Epigastric pain[ICD10: R10.13] Diagnosis: Actinic keratosis[ICD10: L57.0] Melba Goldman MD, [facility] CPT-4: 78830 02/06/2017 [id number]) [id number] EST. PATIENT, LEVEL III Diagnosis: Actinic keratosis[ICD10: L57.0] Diagnosis: Major depressive disorder, recurrent, moderate[ICD10: F33.1] Melba Goldman MD, [facility] CPT-4: 56418 12/05/2016 ([id number]) 29892 EST. PATIENT, LEVEL III Diagnosis: Acute recurrent maxillary sinusitis[ICD10: J01.01] Diagnosis: Dysuria[ICD10: R30.0] Shahida Goldman MD, [facility] CPT-4: 56849 11/28/2016 [id number] EST. PATIENT, LEVEL IV Diagnosis: Other acute sinusitis[ICD10: J01.80] Diagnosis: Acute laryngopharyngitis[ICD10: J06.0] Diagnosis: Other allergic rhinitis[ICD10: J30.89] Isabelle Goldman MD, [facility] CPT- 4: 22530 08/15/2016 ([id number]) 17053 EST. PATIENT, LEVEL III Diagnosis: Acute recurrent maxillary sinusitis[ICD10: J01.01] Diagnosis: Low back pain[ICD10: M54.5] Shahida Goldman MD, [facility] CPT-4: 03763 06/07/2016 ([id number]) Miscellaneous no charge Diagnosis: Essential (primary) hypertension[ICD10: I10] Shahida Goldman MD, [facility] CPT-4: 60837 03/15/2016 61063 EST. PATIENT, LEVEL IV Diagnosis: Essential (primary) hypertension[ICD10: I10] Diagnosis: Headache[ICD10: R51] Diagnosis: Generalized anxiety disorder[ICD10: F41.1] Shahida Goldman MD, [facility] CPT-4: 22460 03/14/2016 02308 EST. PATIENT, LEVEL III Diagnosis: Laceration without foreign body, left lower leg, initial encounter[ICD10: S81.812A] Isabelle Goldman MD, [facility] CPT-4: 79519 02/22/2016 ([id number]) 49599 EST. PATIENT, LEVEL III Diagnosis: Acute recurrent maxillary sinusitis[ICD10: J01.01] Diagnosis: Cough[ICD10: R05] Diagnosis: Allergic rhinitis due to pollen[ICD10: J30.1] Shahida Goldman MD, [facility] CPT-4: 45879 12/07/2015 ([id number]) 56089 EST. PATIENT, LEVEL IV Diagnosis: Essential (primary) hypertension[ICD10: I10] Diagnosis: Acute recurrent maxillary sinusitis[ICD10: J01.01] Diagnosis: Generalized anxiety disorder[ICD10: F41.1] Diagnosis: Cervicalgia[ICD10: M54.2] Diagnosis: Generalized intra-abdominal and pelvic swelling, mass and lump[ICD10: R19.07] Melba Goldman MD, [facility] CPT-4: 57598 11/24/2015 62418 EST. PATIENT, LEVEL III Diagnosis: Other migraine, intractable, without status migrainosus[ICD10: G43.819] Isabelle Goldman MD, [facility] CPT-4: 91011 08/27/2015 27226 EST. PATIENT, LEVEL III Diagnosis: Acute recurrent maxillary sinusitis[ICD10: J01.01] Diagnosis: Candidal stomatitis[ICD10: B37.0] Diagnosis: Acute laryngopharyngitis[ICD10: J06.0] Isabelle Goldman MD, [facility] CPT- 4: 52696 08/10/2015 72566 EST. PATIENT, LEVEL III Diagnosis: Superficial foreign body of left hand, initial encounter[ICD10: S60.552A] Melba Goldman MD, [facility] CPT-4: 13444 07/28/2015 ([id number]) 54930 EST. PATIENT, LEVEL III Diagnosis: Essential (primary) hypertension[ICD10: I10] Diagnosis: Tinea cruris[ICD10: B35.6] Diagnosis: Abnormal levels of other serum enzymes[ICD10: R74.8] Shahida Goldman MD, [facility] CPT-4: 77908 06/11/2015 ([id number]) 53503 EST. PATIENT, LEVEL IV Diagnosis: ESSENTIAL HYPERTENSION[ICD9: 401.9] Diagnosis: Hypothyroid[ICD9: 244.9] Diagnosis: ALLERGIC RHINITIS[ICD9: 477.9] Diagnosis: Anxiety[ICD9: 300.00] Diagnosis: Sleep apnea[ICD9: 780.57] Shahdia Goldman MD, [facility] CPT-4: 62907 03/19/2015 ([id number]) 19789 EST. PATIENT, LEVEL III Diagnosis: ACUTE SINUSITIS[ICD9: 461.9] Celi Goldman MD, [facility] CPT-4: 97781 01/07/2015 ([id number]) 33816 EST. PATIENT, LEVEL III Diagnosis: Conjunctivitis[ICD9: 372.30] Shahida Goldman MD, [facility] CPT-4: 18323 09/23/2014 76300 EST. PATIENT, LEVEL II Diagnosis: Noninfected skin tear of leg[ICD9: 891.0] Shahida Goldman MD, [facility] CPT-4: 61441 08/05/2014 ([id number]) 66500 EST. PATIENT, LEVEL III Diagnosis: Chronic maxillary sinusitis[ICD9: 473.0] Shahida Goldman MD, [facility] CPT-4: 76638 06/23/2014 88906 EST. PATIENT, LEVEL II Diagnosis: Headache[ICD9: 784.0] Shahida Goldman MD, [facility] CPT-4: 89887 06/05/2014 ([id number]) 27768 EST. PATIENT, LEVEL III Diagnosis: Abrasion of right leg[ICD9: 916.0] Diagnosis: Headache[ICD9: 784.0] Diagnosis: ALLERGIC RHINITIS[ICD9: 477.9] Shahida Goldman MD, [facility] CPT-4: 15608 04/03/2014 22162 EST. PATIENT, LEVEL II Diagnosis: Tinea corporis[ICD9: 110.5] Diagnosis: Exposure to scabies[ICD9: V01.89] Shahida Goldman MD, [facility] CPT- 4: 45681 03/07/2014 ([id number]) 82809 EST. PATIENT, LEVEL III Diagnosis: ESSENTIAL HYPERTENSION[SNOMED: [id number]] Diagnosis: OSTEOARTH NOS-UNSPEC[ICD9: 715.90] Diagnosis: Lumbago[ICD9: 724.2] Diagnosis: Cervicalgia[ICD9: 723.1] Shahida Goldman MD, [facility] CPT-4: 11004 11/21/2013 ([id number]) 83362 EST. PATIENT, LEVEL III Diagnosis: DEPRESSIVE DISORDER NEC[ICD9: 311] Diagnosis: Paronychia[ICD9: 681.9] Melba Goldman MD, [facility] CPT-4: 22502 09/24/2013 ([id number]) [id number] EST. PATIENT, LEVEL III Diagnosis: Paronychia[ICD9: 681.9] Diagnosis: Cellulitis[ICD9: 682.9] Melba Goldman MD [facility] CPT-4: 32695 09/19/2013 ([id number]) 26974 EST. PATIENT, LEVEL III Diagnosis: Conjunctivitis[ICD9: 372.30] Diagnosis: Thrush[ICD9: 112.0] Shahida Goldman MD [facility] CPT-4: 81005 08/05/2013 ([id number]) 26075 EST. PATIENT, LEVEL III Diagnosis: ACUTE MAXILLARY SINUSITIS[ICD9: 461.0] Diagnosis: COUGH[ICD9: 786.2] Diagnosis: Insomnia[ICD9: 780.52] Diagnosis: ESOPHAGEAL REFLUX[ICD9: 530.81] Melba Goldman MD [facility] CPT-4: 33288 07/10/2013 ([id number]) Miscellaneous no charge Diagnosis: ESSENTIAL HYPERTENSION[SNOMED: 10059101] Melba Goldman MD [facility] CPT-4: 84716 05/13/2013 ([id number]) 06591 EST. PATIENT, LEVEL IV Diagnosis: ESSENTIAL HYPERTENSION[SNOMED: 97244262] Diagnosis: HYPOTHYROIDISM[ICD9: 244.9] Diagnosis: OSTEOARTH NOS-UNSPEC[ICD9: 715.90] Melba Goldman MD, [facility] CPT- 4: 03018 05/07/2013 ([id number]) 49839 EST. PATIENT, LEVEL IV Diagnosis: Osteoarthritis[ICD9: 715.90] Diagnosis: Knee pain, bilateral[ICD9: 719.46] Diagnosis: Hip pain[ICD9: 719.45] Melba Goldman MD, [facility] CPT-4: 38776 12/03/2012 ([id number]) 26239 EST. PATIENT, LEVEL III Diagnosis: Thrush[ICD9: 112.0] Melba Goldman MD, [facility] CPT-4: 24871 09/24/2012 ([id number]) 74208 EST. PATIENT, LEVEL IV Diagnosis: ESSENTIAL HYPERTENSION[SNOMED: 53015198] Diagnosis: Thrush[ICD9: 112.0] Diagnosis: Sleep apnea[ICD9: 780.57] Melba Goldman MD, [facility] CPT-4: 36349 09/10/2012 ([id number]) 49028 EST. PATIENT, LEVEL IV Diagnosis: Esophageal reflux[ICD9: 530.81] Diagnosis: Hypothyroid[ICD9: 244.9] Diagnosis: JOINT PAIN-MULT JOINTS[ICD9: 719.49] Diagnosis: ALLERGIC RHINITIS[ICD9: 477.9] Melba Goldman MD, [facility] CPT-4: 36906 08/08/2012 ([id number]) 40753 EST. PATIENT, LEVEL IV Diagnosis: Urinary frequency[ICD9: 788.41] Diagnosis: EDEMA[ICD9: 782.3] Diagnosis: HYPOTHYROIDISM[ICD9: 244.9] Diagnosis: Fatigue[ICD9: 780.79] Melba Goldman MD, [facility] CPT-4: 13474 02/15/2012 ([id number]) 55017 EST. PATIENT, LEVEL IV Diagnosis: Abdominal pain[ICD9: 789.00] Diagnosis: Fatigue[ICD9: 780.79] Diagnosis: Nausea[ICD9: 787.02] Melba Goldman MD, [facility] CPT-4: 23597 11/10/2011 [id number] EST. PATIENT, LEVEL IV Diagnosis: ESSENTIAL HYPERTENSION[SNOMED: 43750721] Diagnosis: DIARRHEA[ICD9: 787.91] Diagnosis: DEPRESSIVE DISORDER NEC[ICD9: 311] Diagnosis: Irritable bowel disease[ICD9: 564.1] Melba Goldman MD, [facility] CPT- 4: 41495 08/01/2011 [id number] EST. PATIENT, LEVEL III Diagnosis: ACUTE SINUSITIS[ICD9: 461.9] Diagnosis: Cough[ICD9: 786.2] Shahida Goldman MD, [facility] CPT-4: 41033 07/14/2011 [id number] EST. PATIENT, LEVEL IV Diagnosis: VACCIN FOR INFLUENZA[ICD9: V04.81] Diagnosis: ESSENTIAL HYPERTENSION[SNOMED: 83935045] Diagnosis: GENERALIZED ANXIETY DISEASE[ICD9: 300.02] Diagnosis: SLEEP DISTURBANCES[ICD9: 780.50] Shahida Goldman MD, [facility] CPT- 4: 68892 05/23/2011 [id number] EST. PATIENT, LEVEL III Diagnosis: ACUTE SINUSITIS[ICD9: 461.9] Diagnosis: ALLERGIC RHINITIS[ICD9: 477.9] Diagnosis: Cough[ICD9: 786.2] [facility] CPT-4: 24377 05/03/2011 [id number] EST. PATIENT, LEVEL IV Diagnosis: ESSENTIAL HYPERTENSION[SNOMED: 17631118] Diagnosis: DEPRESSIVE DISORDER NEC[ICD9: 311] Diagnosis: Fatigue[ICD9: 780.79] [facility] CPT-4: 83276 04/25/2011 Plan of Care Planned Activity Notes Codes Status Date Visit Plan: Sinusitis - Pt has acute infection - pain in face, maxillary region, Pt informed to use decongestant, RX given to patient, sinus rinses also recommended. Call if symptoms do not show improvement. 03/14/2017 Patient Education: Patient Medication Summary Completed 03/14/2017 Appointment: Shahida Manzo [facility]Ptel: [phone] (15 min) Moderate 02/21/2017 Visit Plan: Abdominal [...] improving. 02/20/2017 App[facility]ment[phone] ([facility] min) Complex 02/20/2017 Patient Education: Patient [...] use 02/06/2017 Appointment: Melba Goldman WPtel: [phone] [facility] (15 min) Moderate 02/06/2017 Patient Education: [...] patient. 12/05/2016 Appointment: Melba Goldman WPtel: [phone] [facility] Surgical Procedure 12/05/2016 Patient Education: Patient Medication Summary Completed 12/05/2016 Visit Plan: Sinusitis - Pt has acute infection - pain in face, maxillary region, Pt informed to use decongestant, RX given to patient, sinus rinses also recommended. Call if symptoms do not show improvement.Dysuria-culture urine 11/28/2016 Appointment: Shah[facility] Man[facility]Ptel[phone] (15 min) Moderate 11/28/2016 Patient Education: [...] of control. 11/07/2016 Appointment: Isabelle Orozco WPtel: [phone] [facility] - Annual Wellness Visit 11/07/2016 Patient Education: [...] allergy spray. 08/15/2016 Appointment: Isabelle Orozco WPtel: [facility] (15 min) Moderate 08/15/2016 Patient Education: Patient Medication Summary Completed 08/15/2016 Patient Education: Obesity Completed 08/15/2016 Visit Plan: Sinusitis - Pt has acute infection - pain in face, maxillary region, Pt informed to use decongestant, RX given to patient, sinus rinses also recommended. Call if symptoms do not show improvement.Chronic back pain-refill hydrocodone for prn breakthrough pain use. 06/07/2016 Appointment: Shahida Manzo WPtel: [phone] (10 min) Simple 06/07/2016 Patient Education: Patient [...] office today 03/14/2016 Appointment: Shahida Manzo WPtel: [phone] (15 min) Moderate 03/14/2016 Patient Education: Patient Medication Summary Completed 03/14/2016 Care Plan: COMPLETE CBC AUTOMATED LOINC : 64028-4 Pending 03/14/2016 Visit Plan: Cellulitis - The patient was instructed in appropriate wound care. The patient was instructed to use the antibiotic ointment as per RX. The patient is to call for any change in symptoms, increase in size of the lesion, increase in pain. 02/22/2016 Appointment: Isabel[facility] Orozco [facility]Ptel[phone] (15 min) Moderate 02/22/2016 Patient Education: [...] dai 11/24/2015 Appointment: [phone] (30 min) Complex 11/24/2015 Patient Education: Patient Medication Summary Completed 11/24/2015 Patient Education: Obesity Completed 11/24/2015 Patient Education: Hypertension Completed 11/24/2015 Patient Education: .Cervicalgia Neck Pain Completed 11/24/2015 Care Plan: Referral Order SNOMED-CT : [id number] Ordered 11/24/2015 Visit Plan: Acute Migraine - [...] to monitor 06/11/2015 Appointment: Shahida Manzo WPtel: [phone] (15 min) Moderate 06/11/2015 Patient Education: Patient [...] OFFICE Sleep apnea-patient needs new CPAP-will contact [facility] patient Pt reports that she uses [...] Sleep apnea-patient needs new CPAP-will contact [facility] patient Pt reports that she uses [...] OFFICE Sleep apnea-patient needs new CPAP-will contact [facility] 03/19/2015 Appointment: (15 min) Moderate 03/19/2015 [...] Patient Medication Summary Completed 01/07/2015 Patient Education: [facility] - Saving AutoInj - 18+ - Dynamic [...] Keep areas dryExposure to scabies-RX sent to [facility]. 03/07/2014 Appointment: Melba Goldman WPtel: [facility] [place] rash 03/07/2014 Patient Education: Patient [...] about change in blood pressure readings at home.Qcbfdrr-ekmzradkkcd-rpuozwfj duragesic patch-appt with Dr Ortiz for pain management 11/21/2013 Appointment: Shahida Manzo WPtel: [phone] [place] Follow up 11/21/2013 Patient Education: Patient Medication Summary Completed 11/21/2013 Patient Education: Hypertension Completed 11/21/2013 Patient Education: .Cervicalgia Neck Pain Completed 11/21/2013 Appointment: Melba Goldman WPtel: [phone] [facility] Other 11/19/2013 Appointment: Melba Goldman WPtel: [phone] [facility] [place] Follow up 11/06/2013 Appointment: Melba Goldamn WPtel: [phone] [facility] Lab Draw 10/15/2013 Patient Education: Patient [...] AT BEDTIME 09/24/2013 Appointment: Shahida Manzo WPtel: [facility] Other 09/24/2013 Patient Education: Patient Medication Summary Completed 09/24/2013 Visit Plan: Paronychia/Cellulitis - continue with oral antibiotics as previously directed, return to clinic as previously directed, call for acute change in symptoms, worsening redness, warmth, discharge. 09/19/2013 Appointment: Melba Goldman WPtel: [facility] Other 09/19/2013 Patient Education: Patient Medication Summary Completed 09/19/2013 Visit Plan: Conjunctivitis - rx for eye drops/lube sent electronically to the patient's pharmacy. The patient has been instructed to cleanse affected eye with warm washcloth, then place medication into affected eye four times daily.Thrush- refill nystatin-call if symptoms do not resolve 08/05/2013 Appointment: Shahida Manzo WPtel: [address] [place], [place] [phone] Sick 08/05/2013 Patient Education: Patient Medication Summary [...] show improvement. 06/03/2013 Appointment: Melba Goldman WPtel: [address] [place], [place] [address] Follow up 06/03/2013 Patient Education: Patient Medication Summary Completed 06/03/2013 Patient Education: Hypertension Completed 06/03/2013 Appointment: Melba Goldman WPtel: [address] [place] [address] [place] Nurse Visit 05/13/2013 Patient Education: Patient [...] of control. 05/07/2013 Appointment: Melba Goldman WPtel: [address] [place], [place] [phone] Follow up 05/07/2013 Patient Education: Patient Medication Summary Completed 05/07/2013 Patient Education: Hypertension Completed 05/07/2013 Patient Education: Patient Medication Summary Completed 04/30/2013 Patient Education: Hypertension Completed 04/30/2013 Visit Plan: Arthritis- occasionally uncontrolled symptoms- recommend pt to take antiinflammatory as directed for pain control.Use tylenol for break through pain symptoms. 12/03/2012 Appointment: Melba Goldman WPtel: [address] [place], [place] [phone] Follow up 12/03/2012 Patient Education: Patient Medication [...] not resolve 09/24/2012 Appointment: Shahida Manzo WPtel: [phone] [facility] 09/24/2012 Patient Education: Patient Medication [...] diflucan 09/10/2012 Appointment: [facility] Goldman [facility]el: [phone] Follow up 09/10/2012 Patient Education: Patient Medication [...] symptoms. 08/08/2012 Appointment: Shahida Manzo [facility]Ptel: [phone] Follow up 08/08/2012 Patient Education: Patient Medication Summary Completed 08/08/2012 Patient Education: Patient Medication Summary Completed 08/07/2012 Patient Education: Hypertension Completed 08/07/2012 Appointment: Melba Goldman WPtel: [phone] [facility] [place] Lab Draw 02/16/2012 Patient Education: [...] Needs labs. 02/15/2012 Appointment: Melba Goldman WPtel: [facility] Other 02/15/2012 Patient Education: Patient Medication Summary Completed 02/15/2012 Visit Plan: Abdominal pain - ultrasound tomorrow AMnothing to eat before the ultrasound from 11pm tonight bland diet.Nausea - worse with fatty foods, recommended low fat/bland diet, call if symptoms worsening. 11/10/2011 Appointment: Melba Goldman WPtel: [facility] Other 11/10/2011 Patient Education: Patient Medication [...] the stools. 08/01/2011 Appointment: Melba Goldman WPtel: [phone] [facility] Other 08/01/2011 Patient Education: Patient Medication Summary Completed 08/01/2011 Patient Education: High Blood Pressure: Essential Hypertension Completed 08/01/2011 Visit Plan: Sinusitis - Pt has acute infection - pain in face, maxillary region, Pt informed to use decongestant, RX given to patient, sinus rinses also recommended. Call if symptoms do not show improvement. Cough-kishore zurita 07/14/2011 Appointment: Shahida Manzo WPtel: [phone] [place] Other 07/14/2011 Patient Education: Patient Medication [...] the office. 05/23/2011 Appointment: Shahida Manzo WPtel: [phone] Other 05/23/2011 Patient Education: Patient Medication Summary [...] cough med 05/03/2011 Appointment: Shahida Manzo WPtel: [phone] Other 05/03/2011 Patient Education: Patient Medication Summary [...] her symptoms. 04/25/2011 Appointment: Shahida Manzo WPtel: [phone] Other 04/25/2011 Patient Education: Patient Medication Summary [...] OFFICE Sleep apnea-patient needs new CPAP-will contact [facility] Pt reports that she uses her [...] OFFICE Sleep apnea-patient needs new CPAP-will contact [facility] Pt reports that she uses her [...] Sleep apnea-patient needs new CPAP-will contact [facility] patient . Skin tear of left and right [...] in the nasal steroid allergy spray. . Paronychia-continue abx as previously prescribed. ROCEPHIN [...] treatment in clinic today: . Hypertension - uncontrolled - the patient's [...] if symptoms do not show improvement. . Hypertension - well controlled - continue [...] areas dry [facility] scabies[facility] rocephin/kenalog . Sinusitis - Pt has acute infection - pain in face, maxillary region, Pt informed to use decongestant, RX given to patient, sinus rinses also recommended. Call if symptoms do not show improvement. Edarbi 40mg daily Labs now EKG . [...] not improve, or if any worse. . HTN-improved today-no change in medications Tinea-start clotrimazole and diflucan Elevated ALT-check labs today to monitor . Hypertension - well controlled - continue with current medications, continue with no added salt diet. Pt has been encouraged to exercise daily. The pt has been advised to call the office if there are any acute concerns about change in blood pressure readings at home. Rajehge-rpoobfukvle-yaytximv duragesic patch-appt with Dr Ortiz for pain [...] pt to follow up with specialist at [address] - she needs to pursue treatment. [...]
--- OUTSIDE RECORDS SUMMARY | 2019-03-08 13:06 | XMS REPORT | CCD ---
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 Name Role Phone PP Unavailable CCM Unavailable Summary Purpose Interface Exchange Insurance Providers Payer name Policy type / Coverage type Covered democrat ID Effective Begin Date Effective End Date [employer] Medicare Part B [id number] Unknown Family history Son Diagnosis Age At Onset Crohn's disease Unknown Brother Diagnosis Age At Onset Cardiovascular disease Unknown Mother Diagnosis Age At Onset Hypertension Unknown Father Diagnosis Age At Onset Cardiovascular disease Unknown Social History Social History Element Codes Description Effective Dates Marital status Unknown 04/22/2011 Number of children Unknown 3 1 son -Crohns 04/22/[address]: 993359677 Nonsmoker 04/22/2011 Allergies, Adverse Reactions, Alerts Allergies, Adverse Reactions, Alerts data not found Past Medical History Illness Codes Condition Status Onset Date Resolved Date Actinic keratosis ICD-9: 702.0 ICD-10: L57.0 Active 12/05/2016 Unknown Epigastric pain ICD-9: 536.8 ICD-10: R10.13 Active 02/06/2017 Unknown Generalized anxiety disorder ICD-9: 300.02 ICD-10: F41.1 Active 03/13/2016 Unknown Left lower quadrant pain ICD-9: 789.04 ICD-10: R10.32 Active 02/20/2017 Unknown Left upper quadrant pain ICD-9: 789.02 ICD-10: R10.12 Active 02/06/2017 Unknown Major depressive disorder, recurrent, moderate ICD-9: 296.32 ICD-10: F33.1 Active 12/05/2016 Unknown Acute recurrent maxillary sinusitis ICD-9: 461.0 ICD-10: J01.01 Active 06/06/2016 Unknown Dysuria ICD-9: 788.1 ICD-10: R30.0 Active [...] Problems Condition Codes Effective Dates Condition Status Actinic keratosis ICD-9: 702.0 ICD-10: L57.0 12/05/2016 Active Epigastric pain ICD-9: 536.8 ICD-10: R10.13 02/06/2017 Active Generalized anxiety disorder ICD-9: 300.02 ICD-10: F41.1 03/13/2016 Active Left lower quadrant pain ICD-9: 789.04 ICD-10: R10.32 02/20/2017 Active Left upper quadrant pain ICD-9: 789.02 ICD-10: R10.12 02/06/2017 Active Major depressive disorder, recurrent, moderate ICD-9: 296.32 ICD-10: F33.1 12/05/2016 Active Acute recurrent maxillary sinusitis ICD-9: 461.0 ICD-10: J01.01 06/06/2016 Active Dysuria ICD-9: 788.1 ICD-10: R30.0 05/04/2016 [...] Start Date Stop Date Status Fill Instructions Lexapro 20 mg tablet RxNorm: 071511 1.5 Tablet(s) PO daily 03/08/2017 07/05/2017 Active Lexapro 20 mg tablet RxNorm: 695844 1.5 Tablet(s) PO daily 03/08/2017 03/07/2017 Inactive alprazolam 0.25 mg tablet RxNorm: 728876 1 Tablet(s) PO daily as needed 02/23/2017 04/23/2017 Active (Response to an electronic controlled substance refill request [id number]) Flagyl 500 mg tablet RxNorm: 392177 1 Tablet(s) PO TID 02/20/2017 03/01/2017 Inactive promethazine 25 mg tablet RxNorm: 946194 1 Tablet(s) PO TID as needed nausea 02/20/2017 03/01/2017 Inactive Cipro 500 mg tablet RxNorm: 439353 1 Tablet(s) PO BID 02/20/2017 03/01/2017 Inactive Flagyl 500 mg tablet RxNorm: 206033 1 Tablet(s) PO TID 02/09/2017 02/15/2017 Inactive Trintellix 10 mg tablet RxNorm: 5647075 1 Tablet(s) PO QAM 02/06/2017 03/07/2017 Inactive Efudex 5 % topical cream RxNorm: 611062 1 Application TOP BID use on skin spot on nose 02/06/2017 02/15/2017 Inactive Bystolic 10 mg tablet RxNorm: 326856 TAKE ONE TABLET BY MOUTH DAILY 02/03/2017 06/02/2017 Active Imitrex 50 mg tablet RxNorm: 442592 TAKE ONE TABLET BY MOUTH EVERY 8 HOURS NEEDED MAY REPEAT IN 1 HOUR OF INITIAL DOSE. DISCONTINUE FIORICET 12/22/2016 02/19/2017 Inactive Nexium 40 mg capsule,delayed release RxNorm: 637658 TAKE ONE CAPSULE BY MOUTH EVERY DAY 12/21/2016 09/16/2017 Active Lexapro 20 mg tablet RxNorm: 133599 Tablet(s) TAKE ONE TABLET BY MOUTH DAILY 12/05/2016 02/05/2017 Inactive hydrocodone 10 mg-acetaminophen 325 mg tablet RxNorm: 857817 Tablet(s) PO TAKE ONE TO TWO TABLETS BY MOUTH EVERY 6 HOURS NEEDED FOR PAIN 11/28/2016 No Stop Date Active (Appended: Controlled substance eRx refill - RxReferenceNumber: [id number]) Augmentin 875 mg-125 mg tablet RxNorm: 918282 1 Tablet(s) PO BID 11/28/2016 12/04/2016 Inactive ceftriaxone 500 mg solution for injection RxNorm: 3852924 1 Milliliter(s) Inj 11/28/2016 11/28/2016 Inactive prednisone 20 mg tablet RxNorm: 482409 2 Tablet(s) PO daily 11/28/2016 12/02/2016 Inactive Synthroid 100 mcg tablet RxNorm: 888243 1 Tablet(s) PO daily 11/21/2016 05/19/2017 Active Brand name only! trazodone 50 mg tablet RxNorm: 865382 TAKE 1 AND 1/2 TABLETS EVERY NIGHT AT BEDTIME , MAY INCREASE TO 2 TABLETS AT BEDTIME NEEDED 11/21/2016 02/16/2017 Inactive trazodone 50 mg tablet RxNorm: 246926 Tablet(s) TAKE 1 AND 1/2 TABLETS EVERY NIGHT AT BEDTIME , MAY INCREASE TO 2 TABLETS AT BEDTIME NEEDED 11/21/2016 11/20/2016 Inactive Synthroid 100 mcg tablet RxNorm: 111191 1 Tablet(s) PO daily TAKE ONE TABLET BY MOUTH DAILY 11/08/2016 11/20/2016 Inactive ceftriaxone 500 mg solution for injection RxNorm: 2302072 Inj 11/07/2016 11/07/2016 Inactive Kenalog 40 mg/mL suspension for injection RxNorm: 2412095 Milliliter(s) Inj 11/07/2016 11/07/2016 Inactive Xanax 0.25 mg tablet RxNorm: 834299 1 Tablet(s) PO daily as needed 10/31/2016 12/27/2016 Inactive alprazolam 0.25 mg tablet RxNorm: 721135 1 Tablet(s) PO daily as needed 10/21/2016 12/18/2016 Inactive (Response to an electronic controlled substance refill request - RxReferenceNumber: [id number]) hydrochlorothiazide 25 mg tablet RxNorm: 917387 TAKE ONE TABLET BY MOUTH DAILY 10/11/2016 04/08/2017 Active Xanax 0.25 mg tablet RxNorm: 358573 1 Tablet(s) PO daily as needed 08/23/2016 10/19/2016 Inactive Flonase Allergy Relief 50 mcg/actuation nasal spray,suspension RxNorm: 4275626 1 [place] NASAL daily 08/15/2016 No Stop Date Active amoxicillin 500 mg capsule RxNorm: 563768 1 Capsule(s) PO TID 08/15/2016 08/24/2016 Inactive Bystolic 10 mg tablet RxNorm: 521663 TAKE ONE TABLET BY MOUTH DAILY 08/01/2016 12/28/2016 Inactive trazodone 50 mg tablet RxNorm: 668417 TAKE 1 AND 1/2 TABLETS EVERY NIGHT AT BEDTIME , MAY INCREASE TO 2 TABLETS AT BEDTIME NEEDED 07/25/2016 11/11/2016 Inactive alprazolam 0.25 mg tablet RxNorm: 150816 1 Tablet(s) PO daily as needed 07/25/2016 08/22/2016 Inactive (Response to an electronic controlled substance refill request - RxReferenceNumber: [id number]) Imitrex 50 mg tablet RxNorm: 104485 1 Tablet(s) PO Q8 as needed may repeat x1 dose in 1 hour of inital dose. 07/13/2016 No Stop Date Active Lexapro 20 mg tablet RxNorm: 758499 TAKE 1/2 TABLET BY MOUTH DAILY FOR 10 DAYS, THEN TAKE ONE TABLET BY MOUTH DAILY 06/27/2016 11/23/2016 Inactive Synthroid 100 mcg tablet RxNorm: 899087 TAKE ONE TABLET BY MOUTH DAILY 06/20/2016 11/07/2016 Inactive Augmentin 500 mg-125 mg tablet RxNorm: 826212 1 Tablet(s) PO TID 06/07/2016 06/13/2016 Inactive hydrocodone 10 mg-acetaminophen 325 mg tablet RxNorm: 086869 Tablet(s) PO TAKE ONE TO TWO TABLETS BY MOUTH EVERY 6 HOURS NEEDED FOR PAIN 06/07/2016 11/27/2016 Inactive (Appended: Controlled substance eRx refill - RxReferenceNumber: [id number]) hydrochlorothiazide 25 mg tablet RxNorm: 740252 TAKE ONE TABLET BY MOUTH DAILY 03/14/2016 09/09/2016 Inactive Edarbi 40 mg tablet RxNorm: 6131720 1 Tablet(s) PO daily 03/14/2016 06/06/2016 Inactive trazodone 50 mg tablet RxNorm: 105951 Tablet(s) TAKE 1 AND 1/2 TABLET AT BEDTIME. MAY INCREASE TO 2 TABLETS IF NECESSARY 02/25/2016 07/05/2016 Inactive Imitrex 50 mg tablet RxNorm: 042070 1 Tablet(s) PO Q8 as needed may repeat x1 dose in 1 hour of inital dose. 02/25/2016 07/12/2016 Inactive dc fioricet Xanax 0.25 mg tablet RxNorm: 195634 1 Tablet(s) PO daily as needed 02/24/2016 07/21/2016 Inactive mupirocin 2 % topical ointment RxNorm: 146171 1 TOP BID 02/22/2016 No Stop Date Active Bactrim DS 800 mg-160 mg tablet RxNorm: 161540 1 Tablet(s) PO BID 02/22/2016 03/02/2016 Inactive Fioricet 50 mg-325 mg-40 mg tablet RxNorm: 777319 Tablet(s) TAKE ONE TABLET BY MOUTH EVERY 4 HOURS NEEDED FOR headache 02/12/2016 02/24/2016 Inactive (Response to an electronic controlled substance refill request - RxReferenceNumber: [id number]) Fioricet 50 mg-325 mg-40 mg tablet RxNorm: 501977 Tablet(s) TAKE ONE TABLET BY MOUTH EVERY 4 HOURS NEEDED FOR headache 02/12/2016 02/11/2016 Inactive (Response to an electronic controlled substance refill request - RxReferenceNumber: [id number]) Nexium 40 mg capsule,delayed release RxNorm: 272906 TAKE ONE CAPSULE BY MOUTH EVERY DAY 02/01/2016 10/27/2016 Inactive Bystolic 10 mg tablet RxNorm: 201558 Tablet(s) TAKE ONE TABLET BY MOUTH DAILY 01/06/2016 07/03/2016 Inactive Xanax 0.25 mg tablet RxNorm: 587740 1 Tablet(s) PO daily as needed 12/28/2015 02/23/2016 Inactive Levaquin 500 mg tablet RxNorm: 190917 1 Tablet(s) PO daily take a probiotic daily 12/14/2015 02/11/2016 Inactive Levaquin 500 mg tablet RxNorm: 544130 1 Tablet(s) PO daily take a probiotic daily 12/14/2015 12/13/2015 Inactive Phenergan with Codeine Syrup RxNorm: 5-10 Milliliter(s) PO Q6 PRN 12/07/2015 No Stop Date Active prednisone 20 mg tablet RxNorm: 729317 1 Tablet(s) PO BID 12/07/2015 12/13/2015 Inactive Augmentin 875 mg-125 mg tablet RxNorm: 845921 1 Tablet(s) PO BID 12/07/2015 12/13/2015 Inactive ceftriaxone 500 mg solution for injection RxNorm: 2487104 Inj 12/07/2015 12/07/2015 Inactive alprazolam 0.25 mg tablet RxNorm: 082226 1 Tablet(s) PO daily as needed 11/27/2015 12/25/2015 Inactive (Response to an electronic controlled substance refill request - RxReferenceNumber: [id number]) trazodone 50 mg tablet RxNorm: 217617 TAKE 1 AND 1/2 TABLET AT BEDTIME FOR 2 WEEKS, MAY INCREASE TO 2 TABLETS IF NECESSARY AFTER THAT 11/26/2015 02/24/2016 Inactive ceftriaxone 500 mg solution for injection RxNorm: 2849448 Milliliter(s) Inj 11/24/2015 11/24/2015 Inactive prednisone 10 mg tablet RxNorm: 494256 3 Tablet(s) PO daily 11/24/2015 11/28/2015 Inactive cefdinir 300 mg capsule RxNorm: 013894 1 Capsule(s) PO BID 11/24/2015 11/30/2015 Inactive Kenalog 40 mg/mL suspension for injection RxNorm: 9201896 1 Milliliter(s) Inj 11/24/2015 11/24/2015 Inactive Lexapro 20 mg tablet RxNorm: 229032 TAKE 1/2 TABLET BY MOUTH DAILY FOR 10 DAYS, THEN TAKE ONE TABLET BY MOUTH DAILY 11/23/2015 05/20/2016 Inactive Norvasc 10 mg tablet RxNorm: 605096 Tablet(s) PO TAKE ONE TABLET BY MOUTH EVERY DAY 10/26/2015 02/22/2016 Inactive Lipitor 10 mg tablet RxNorm: 906424 Tablet(s) TAKE ONE TABLET BY MOUTH EVERY DAY 10/26/2015 11/06/2016 Inactive hydrochlorothiazide 25 mg tablet RxNorm: 933580 TAKE ONE TABLET BY MOUTH DAILY 10/20/2015 01/17/2016 Inactive alprazolam 0.25 mg tablet RxNorm: 393777 1 Tablet(s) PO daily as needed 08/27/2015 11/22/2015 Inactive (Response to an electronic controlled substance refill request - RxReferenceNumber: [id number]) promethazine 25 mg/mL injection solution RxNorm: 500962 Milliliter(s) Inj 08/27/2015 08/27/2015 Inactive ketorolac 60 mg/2 mL intramuscular solution RxNorm: 659270 Milliliter(s) IM 08/27/2015 08/27/2015 Inactive Lexapro 20 mg tablet RxNorm: 401657 TAKE 1/2 TABLET BY MOUTH DAILY FOR 10 DAYS, THEN TAKE ONE TABLET BY MOUTH DAILY 08/13/2015 11/10/2015 Inactive Flonase 50 mcg/actuation nasal spray,suspension RxNorm: 710556 PLACE 1 SPRAY IN EACH NOSTRIL DAILY 08/13/2015 02/08/2016 Inactive Augmentin 500 mg-125 mg tablet RxNorm: 637145 1 Tablet(s) PO TID 08/10/2015 08/16/2015 Inactive Kenalog 40 mg/mL suspension for injection RxNorm: 9818937 Milliliter(s) Inj 08/10/2015 08/10/2015 Inactive ceftriaxone 500 mg solution for injection RxNorm: 5117934 Inj 08/10/2015 08/10/2015 Inactive nystatin 100,000 unit/mL oral suspension RxNorm: 952172 4 Milliliter(s) PO QID 08/10/2015 08/16/2015 Inactive trazodone 50 mg tablet RxNorm: 401183 TAKE 1 AND 1/2 TABLET AT BEDTIME FOR 2 WEEKS, MAY INCREASE TO 2 TABLETS IF NECESSARY AFTER THAT 07/31/2015 11/25/2015 Inactive ceftriaxone 500 mg solution for injection RxNorm: 3999437 1 Milliliter(s) Inj 07/28/2015 07/28/2015 Inactive Bactrim DS 800 mg-160 mg tablet RxNorm: 949882 1 Tablet(s) PO BID 07/28/2015 08/06/2015 Inactive Bactroban 2 % topical ointment RxNorm: 358595 1 Application TOP BID 07/28/2015 08/06/2015 Inactive Diflucan 150 mg tablet RxNorm: 943945 1 Tablet(s) PO daily 06/11/2015 06/17/2015 Inactive clotrimazole 1 % topical cream RxNorm: 178702 1 Application TOP BID 06/11/2015 07/10/2015 Inactive Bystolic 10 mg tablet RxNorm: 155971 TAKE ONE TABLET BY MOUTH DAILY 06/08/2015 12/04/2015 Inactive alprazolam 0.25 mg tablet RxNorm: 934912 1 Tablet(s) PO daily as needed 06/01/2015 08/25/2015 Inactive (Response to an electronic controlled substance refill request - RxReferenceNumber: [id number]) Fioricet 50 mg-325 mg-40 mg tablet RxNorm: 579492 Tablet(s) TAKE ONE TABLET BY MOUTH EVERY 4 HOURS NEEDED FOR headache 05/28/2015 06/08/2015 Inactive (Response to an electronic controlled substance refill request - RxReferenceNumber: [id number]) trazodone 50 mg tablet RxNorm: 684223 TAKE 1 AND 1/2 TABLET AT BEDTIME FOR 2 WEEKS, MAY INCREASE TO 2 TABLETS IF NECESSARY AFTER THAT 05/25/2015 08/22/2015 Inactive trazodone 50 mg tablet RxNorm: 142553 TAKE 1 AND 1/2 TABLET AT BEDTIME FOR 2 WEEKS, MAY INCREASE TO 2 TABLETS IF NECESSARY AFTER THAT 05/25/2015 05/24/2015 Inactive Synthroid 100 mcg tablet RxNorm: 532605 TAKE ONE TABLET BY MOUTH DAILY 04/23/2015 01/17/2016 Inactive Lipitor 10 mg tablet RxNorm: 239720 TAKE ONE TABLET BY MOUTH EVERY DAY 04/23/2015 10/25/2015 Inactive Kenalog 40 mg/mL suspension for injection RxNorm: 5486945 Milliliter(s) Inj 03/19/2015 03/19/2015 Inactive Lexapro 20 mg tablet RxNorm: 923741 1 Tablet(s) PO daily 03/19/2015 07/16/2015 Inactive 1/2 tab daily x 10 days then 1 tab daily hydrocodone 10 mg-acetaminophen 325 mg tablet RxNorm: 866740 Tablet(s) PO TAKE ONE TO TWO TABLETS BY MOUTH EVERY 6 HOURS NEEDED FOR PAIN 03/19/2015 06/06/2016 Inactive (Appended: Controlled substance eRx refill - RxReferenceNumber: [id number]) Carafate 1 gram tablet RxNorm: 922997 1 Tablet(s) PO AC & HS 03/19/2015 06/16/2015 Inactive dissolve in water and take as a slurry hydrochlorothiazide 25 mg tablet RxNorm: 841974 1 Tablet(s) PO daily 03/12/2015 09/07/2015 Inactive Nexium 40 mg capsule,delayed release RxNorm: 290546 TAKE ONE CAPSULE BY MOUTH EVERY DAY 02/26/2015 12/22/2015 Inactive Cymbalta 60 mg capsule,delayed release RxNorm: 187595 TAKE ONE CAPSULE BY MOUTH TWICE A DAY 02/23/2015 03/18/2015 Inactive alprazolam 0.25 mg tablet RxNorm: 698963 1 Tablet(s) PO daily as needed 02/11/2015 05/10/2015 Inactive (Response to an electronic controlled substance refill request - RxReferenceNumber: [id number]) trazodone 50 mg tablet RxNorm: 023920 TAKE 1 AND 1/2 TABLET AT BEDTIME FOR 2 WEEKS, MAY INCREASE TO 2 TABLETS IF NECESSARY AFTER THAT 01/27/2015 05/24/2015 Inactive Augmentin 500 mg-125 mg tablet RxNorm: 641906 1 Tablet(s) PO TID 01/07/2015 01/13/2015 Inactive gentamicin 0.3 % eye drops RxNorm: 631354 3 Drop(s) OPH QID 01/07/2015 01/13/2015 Inactive [AttnRPh: Saving apply/adjudicate RxGRP:[id number] RxBIN:[id number] RxPCN: ID#:[id number]] scopolamine 1.5 mg transdermal 72 hour patch RxNorm: 724317 1 Patch TD q72 hours 01/07/2015 11/23/2015 Inactive Synthroid 100 mcg tablet RxNorm: 868108 TAKE ONE TABLET BY MOUTH ONCE A DAY 01/06/2015 04/22/2015 Inactive nystatin 100,000 unit/gram topical powder RxNorm: 465443 APPLY TOPICALLY TWO TIMES A DAY 12/18/2014 03/17/2015 Inactive alprazolam 0.25 mg tablet RxNorm: 973538 TAKE ONE TABLET BY MOUTH DAILY NEEDED 10/30/2014 11/28/2014 Inactive (Response to an electronic controlled substance refill request - RxReferenceNumber: [id number]) alprazolam 0.25 mg tablet RxNorm: 901298 Tablet(s) TAKE ONE TABLET BY MOUTH DAILY 10/30/2014 10/29/2014 Inactive (Response to an electronic controlled substance refill request - RxReferenceNumber: [id number]) Lipitor 10 mg tablet RxNorm: 045437 TAKE ONE TABLET BY MOUTH EVERY DAY 10/30/2014 02/26/2015 Inactive alprazolam 0.25 mg tablet RxNorm: 341391 TAKE ONE TABLET BY MOUTH DAILY 10/07/2014 10/29/2014 Inactive (Response to an electronic controlled substance refill request - RxReferenceNumber: [id number]) alprazolam 0.25 mg tablet RxNorm: 269115 TAKE ONE TABLET BY MOUTH DAILY 10/06/2014 10/07/2014 Inactive (Response to an electronic controlled substance refill request - RxReferenceNumber: [id number]) alprazolam 0.25 mg tablet RxNorm: 719220 Tablet(s) TAKE ONE TABLET BY MOUTH EVERY DAY NEEDED 09/30/2014 10/06/2014 Inactive (Response to an electronic controlled substance refill request - RxReferenceNumber: [id number]) Fioricet 50 mg-325 mg-40 mg tablet RxNorm: 047945 Tablet(s) TAKE ONE TABLET BY MOUTH EVERY 4 HOURS NEEDED FOR headache 09/29/2014 10/12/2014 Inactive (Response to an electronic controlled substance refill request - RxReferenceNumber: [id number]) Bystolic 10 mg tablet RxNorm: 744720 1 Tablet(s) PO daily TAKE ONE TABLET BY MOUTH EVERY DAY 09/29/2014 04/26/2015 Inactive Bystolic 5 mg tablet RxNorm: 129987 TAKE 1 AND 1/2 TABLETS ONCE DAILY 09/24/2014 09/23/2014 Inactive Bystolic 5 mg tablet RxNorm: 424430 Tablet(s) TAKE 1 AND 1/2 TABLETS ONCE DAILY 09/24/2014 09/18/2015 Inactive gentamicin 0.3 % eye drops RxNorm: 833536 3 Drop(s) OPH QID 09/23/2014 09/29/2014 Inactive trazodone 50 mg tablet RxNorm: 455759 TAKE 1 AND 1/2 TABLET AT BEDTIME FOR 2 WEEKS, MAY INCREASE TO 2 TABLETS IF NECESSARY AFTER THAT 09/22/2014 01/26/2015 Inactive Fioricet 50 mg-325 mg-40 mg tablet RxNorm: 830450 TAKE ONE TABLET BY MOUTH EVERY 4 HOURS NEEDED FOR PAIN 09/17/2014 09/28/2014 Inactive (Response to an electronic controlled substance refill request - RxReferenceNumber: [id number]) Duragesic 50 mcg/hr transdermal patch RxNorm: 677053 1 TD q72 hours 08/07/2014 01/06/2015 Inactive [SAVINGS FOR UNINSURED PATIENTS -- BIN:[id number], PCN: ASPROD1, Group: [id number], ID# [id number], Process claim through [employer], for questions: . THIS IS NOT INSURANCE.] alprazolam 0.25 mg tablet RxNorm: 060015 TAKE ONE TABLET BY MOUTH EVERY DAY NEEDED 07/31/2014 08/29/2014 Inactive (Response to an electronic controlled substance refill request - RxReferenceNumber: [id number]) alprazolam 0.25 mg tablet RxNorm: 515789 1 Tablet(s) PO daily as needed TAKE ONE TABLET BY MOUTH EVERY DAY NEEDED 07/30/2014 08/01/2014 Inactive (Response to an electronic controlled substance refill request - RxReferenceNumber: [id number]) Diflucan 150 mg tablet RxNorm: 878545 1 Tablet(s) PO daily 06/25/2014 07/01/2014 Inactive [SAVINGS FOR UNINSURED PATIENTS -- BIN:504602, PCN: ASPROD1, Group: [id number], ID# [id number], Process claim through [employer], for questions: . THIS IS NOT INSURANCE.] Kenalog 40 mg/mL suspension for injection RxNorm: 7037204 Milliliter(s) Inj 06/23/2014 06/23/2014 Inactive [SAVINGS FOR UNINSURED PATIENTS -- BIN:637970, PCN: ASPROD1, Group: [id number], ID# [id number], Process claim through [employer], for questions: . THIS IS NOT INSURANCE.] ceftriaxone 500 mg solution for injection RxNorm: 295610 Inj 06/23/2014 06/23/2014 Inactive [SAVINGS FOR UNINSURED PATIENTS -- BIN:002263, PCN: ASPROD1, Group: [id number], ID# [id number], Process claim through [employer], for questions: . THIS IS NOT INSURANCE.] Levaquin 500 mg tablet RxNorm: 503959 1 Tablet(s) PO daily 06/23/2014 07/13/2014 Inactive [SAVINGS FOR UNINSURED PATIENTS -- BIN:281382, PCN: ASPROD1, Group: [id number], ID# [id number], Process claim through [employer], for questions: . THIS IS NOT INSURANCE.] Duragesic 50 mcg/hr transdermal patch RxNorm: 998410 1 TD q72 hours 06/05/2014 08/06/2014 Inactive [SAVINGS FOR UNINSURED PATIENTS -- BIN:962056, PCN: ASPROD1, Group: [id number], ID# [id number], Process claim through [employer], for questions: . THIS IS NOT INSURANCE.] alprazolam 0.25 mg tablet RxNorm: 113653 1 Tablet(s) PO daily as needed TAKE ONE TABLET BY MOUTH EVERY DAY NEEDED 06/02/2014 07/29/2014 Inactive (Response to an electronic controlled substance refill request - RxReferenceNumber: [id number]) nystatin 100,000 unit/gram topical powder RxNorm: 276154 APPLY TO AFFECTED AREA(S) TWO TIMES A DAY 05/01/2014 06/14/2014 Inactive hydrochlorothiazide 25 mg tablet RxNorm: 760261 TAKE ONE TABLET BY MOUTH EVERY DAY MUST CALL MD FOR APPOINTMENT 04/24/2014 10/20/2014 Inactive alprazolam 0.25 mg tablet RxNorm: 493705 Tablet(s) TAKE ONE TABLET BY MOUTH EVERY DAY NEEDED 04/16/2014 06/02/2014 Inactive (Response to an electronic controlled substance refill request - RxReferenceNumber: [id number]) alprazolam 0.25 mg tablet RxNorm: 700228 TAKE ONE TABLET BY MOUTH EVERY DAY NEEDED 04/16/2014 05/15/2014 Inactive (Response to an electronic controlled substance refill request - RxReferenceNumber: [id number]) alprazolam 0.25 mg tablet RxNorm: 646226 TAKE ONE TABLET BY MOUTH EVERY DAY NEEDED 04/16/2014 05/15/2014 Inactive (Response to an electronic controlled substance refill request - RxReferenceNumber: [id number]) alprazolam 0.25 mg tablet RxNorm: 722827 TAKE ONE TABLET BY MOUTH EVERY DAY NEEDED 04/14/2014 04/16/2014 Inactive (Response to an electronic controlled substance refill request - RxReferenceNumber: [id number]) Lipitor 10 mg tablet RxNorm: 801694 TAKE ONE TABLET BY MOUTH EVERY DAY 04/14/2014 09/10/2014 Inactive alprazolam 0.25 mg tablet RxNorm: 531406 TAKE ONE TABLET BY MOUTH EVERY DAY NEEDED 04/14/2014 04/14/2014 Inactive (Response to an electronic controlled substance refill request - RxReferenceNumber: [id number]) alprazolam 0.25 mg tablet RxNorm: 496983 TAKE ONE TABLET BY MOUTH EVERY DAY NEEDED 04/14/2014 04/15/2014 Inactive (Response to an electronic controlled substance refill request - RxReferenceNumber: [id number]) alprazolam 0.25 mg tablet RxNorm: 153553 TAKE ONE TABLET BY MOUTH EVERY DAY NEEDED 04/14/2014 04/14/2014 Inactive (Response to an electronic controlled substance refill request - RxReferenceNumber: [id number]) nystatin 100,000 unit/gram topical powder RxNorm: 748414 1 Application TOP BID 04/03/2014 07/01/2014 Inactive [SAVINGS FOR UNINSURED PATIENTS -- BIN:108543, PCN: ASPROD1, Group: TAB, ID# [id number], Process claim through [employer], for questions: . THIS IS NOT INSURANCE.] Keflex 500 mg capsule RxNorm: 482824 1 Capsule(s) PO QID 04/03/2014 04/09/2014 Inactive [SAVINGS FOR UNINSURED PATIENTS -- BIN:399230, PCN: ASPROD1, Group: AMJulia, ID# [id number], Process claim through [employer], for questions: . THIS IS NOT INSURANCE.] Synthroid 100 mcg tablet RxNorm: 957281 1 Tablet(s) PO daily TAKE ONE TABLET BY MOUTH EVERY DAY 04/01/2014 01/05/2015 Inactive [SAVINGS FOR UNINSURED PATIENTS -- BIN:912865, PCN: ASPROD1, Group: [id number], ID# [id number], Process claim through [employer], for questions: . THIS IS NOT INSURANCE.] Duragesic 50 mcg/hr transdermal patch RxNorm: 371606 1 TD q72 hours 03/24/2014 06/04/2014 Inactive [SAVINGS FOR UNINSURED PATIENTS -- BIN:345428, PCN: ASPROD1, Group: [id number], ID# [id number], Process claim through [employer], for questions: . THIS IS NOT INSURANCE.] trazodone 50 mg tablet RxNorm: 721836 TAKE 1 AND 1/2 TABLET AT BEDTIME FOR 2 WEEKS, MAY INCREASE TO 2 TABLETS IF NECESSARY AFTER THAT 03/18/2014 09/13/2014 Inactive nystatin 100,000 unit/gram topical powder RxNorm: 714520 1 Application TOP BID 03/07/2014 03/16/2014 Inactive [SAVINGS FOR UNINSURED PATIENTS -- BIN:202454, PCN: ASPROD1, Group: [id number], ID# [id number], Process claim through [employer], for questions: . THIS IS NOT INSURANCE.] permethrin 5 % topical cream RxNorm: 991617 1 Application TOP daily 03/07/2014 11/23/2015 Inactive apply head to toe-leave on overnight and wash off in the a.m. May repeat x 1 if needed Diflucan 150 mg tablet RxNorm: 134462 1 Tablet(s) PO daily 03/07/2014 03/09/2014 Inactive [SAVINGS FOR UNINSURED PATIENTS -- BIN:560282, PCN: ASPROD1, Group: [id number], ID# [id number], Process claim through [employer], for questions: . THIS IS NOT INSURANCE.] hydrochlorothiazide 25 mg tablet RxNorm: 575024 TAKE ONE TABLET BY MOUTH EVERY DAY MUST CALL MD FOR APPOINTMENT 03/06/2014 04/23/2014 Inactive Zithromax Z-Sergio 250 mg tablet RxNorm: 100591 Tablet(s) PO as directed 03/04/2014 11/23/2015 Inactive [SAVINGS FOR UNINSURED PATIENTS -- BIN:525517, PCN: ASPROD1, Group: [id number], ID# [id number], Process claim through [employer], for questions: . THIS IS NOT INSURANCE.] Flonase 50 mcg/actuation nasal spray,suspension RxNorm: 342118 1 [place] NASAL daily 03/04/2014 07/01/2014 Inactive [SAVINGS FOR UNINSURED PATIENTS -- BIN:[id number], PCN: [id number], Group: [id number], ID# [id number], Process claim through [facility], for questions: . THIS IS NOT INSURANCE.] alprazolam 0.25 mg tablet RxNorm: 864197 1 Tablet(s) PO PRN TAKE ONE TABLET BY MOUTH EVERY DAY NEEDED 02/25/2014 04/14/2014 Inactive (Appended: Controlled substance eRx refill - RxReferenceNumber: [id number]) alprazolam 0.25 mg tablet RxNorm: 592333 TAKE ONE TABLET BY MOUTH EVERY DAY NEEDED 02/21/2014 03/22/2014 Inactive (Response to an electronic controlled substance refill request - RxReferenceNumber: [id number]) alprazolam 0.25 mg tablet RxNorm: 412201 TAKE ONE TABLET BY MOUTH EVERY DAY NEEDED 02/21/2014 03/22/2014 Inactive (Response to an electronic controlled substance refill request - RxReferenceNumber: [id number]) alprazolam 0.25 mg tablet RxNorm: 201212 TAKE ONE TABLET BY MOUTH EVERY DAY NEEDED 02/18/2014 03/19/2014 Inactive (Response to an electronic controlled substance refill request - RxReferenceNumber: [id number]) Cymbalta 60 mg capsule,delayed release RxNorm: 299698 TAKE ONE CAPSULE BY MOUTH TWICE A DAY 02/18/2014 01/13/2015 Inactive Nexium 40 mg capsule,delayed release RxNorm: 983499 TAKE ONE CAPSULE BY MOUTH EVERY DAY 02/18/2014 01/13/2015 Inactive Bactrim DS 800 mg-160 mg tablet RxNorm: 752431 1 Tablet(s) PO BID 02/13/2014 02/19/2014 Inactive probiotic while one antibiotic Bactrim DS 800 mg-160 mg tablet RxNorm: 042287 1 Tablet(s) PO BID 02/13/2014 02/12/2014 Inactive hydrocodone 10 mg-acetaminophen 325 mg tablet RxNorm: 807787 Tablet(s) PO TAKE ONE TO TWO TABLETS BY MOUTH EVERY 6 HOURS NEEDED FOR PAIN 02/06/2014 03/18/2015 Inactive (Appended: Controlled substance eRx refill - RxReferenceNumber: [id number]) Abilify 2 mg tablet RxNorm: 318913 Tablet(s) PO TAKE ONE TABLET BY MOUTH EVERY NIGHT AT BEDTIME 02/03/2014 03/19/2015 Inactive Duragesic 50 mcg/hr transdermal patch RxNorm: 684773 1 TD q72 hours 01/14/2014 03/23/2014 Inactive alprazolam 0.25 mg tablet RxNorm: 739900 1 Tablet(s) PO QDAY PRN 01/14/2014 02/12/2014 Inactive alprazolam 0.25 mg tablet RxNorm: 962931 Tablet(s) PO TAKE ONE TABLET BY MOUTH EVERY DAY NEEDED 01/14/2014 02/24/2014 Inactive (Appended: Controlled substance eRx refill - RxReferenceNumber: [id number]) Lipitor 10 mg tablet RxNorm: 776246 Tablet(s) PO TAKE ONE TABLET BY MOUTH EVERY DAY 01/14/2014 04/13/2014 Inactive Synthroid 100 mcg tablet RxNorm: 361365 Tablet(s) PO TAKE ONE TABLET BY MOUTH EVERY DAY 2013 03/31/2014 Inactive Fioricet 50 mg-325 mg-40 mg tablet RxNorm: 057494 Tablet(s) PO TAKE ONE TABLET BY MOUTH EVERY 4 HOURS NEEDED FOR PAIN 11/27/2013 09/17/2014 Inactive Fioricet 50 mg-325 mg-40 mg tablet RxNorm: 816325 Tablet(s) PO TAKE ONE TABLET BY MOUTH EVERY 4 HOURS NEEDED FOR PAIN 11/25/2013 11/26/2013 Inactive Zithromax Z-Sergio 250 mg tablet RxNorm: 851975 Tablet(s) PO as directed 11/11/2013 01/13/2014 Inactive Bystolic 10 mg tablet RxNorm: 286045 Tablet(s) PO TAKE ONE TABLET BY MOUTH EVERY DAY 10/21/2013 09/28/2014 Inactive Abilify 2 mg tablet RxNorm: 453422 1 Tablet(s) PO QHS 09/25/2013 01/22/2014 Inactive Synthroid 100 mcg tablet RxNorm: 295674 Tablet(s) PO TAKE ONE TABLET BY MOUTH EVERY DAY 09/24/2013 12/25/2013 Inactive Abilify 2 mg tablet RxNorm: 595325 1 Tablet(s) PO QHS 09/24/2013 09/24/2013 Inactive Rocephin 500 mg solution for injection RxNorm: 331337 1ml Milliliter(s) Inj 09/24/2013 09/24/2013 Inactive Rocephin 500 mg solution for injection RxNorm: 015811 1 Milliliter(s) Inj 09/19/2013 09/19/2013 Inactive Bystolic 5 mg tablet RxNorm: 438906 1 1/2 Tablet(s) PO daily 09/17/2013 03/15/2014 Inactive 1 1/2 daily may have 90 day if cheaper Bystolic 5 mg tablet RxNorm: 979020 1 1/2 Tablet(s) PO daily 09/17/2013 09/16/2013 Inactive 1 1/2 daily Lipitor 10 mg tablet RxNorm: 841933 Tablet(s) PO TAKE ONE TABLET BY MOUTH EVERY DAY 09/12/2013 01/13/2014 Inactive hydrocodone 10 mg-acetaminophen 325 mg tablet RxNorm: 970725 Tablet(s) PO TAKE ONE TO TWO TABLETS BY MOUTH EVERY 6 HOURS NEEDED FOR PAIN 09/09/2013 No Stop Date Active (Appended: Controlled substance eRx refill - RxReferenceNumber: [id number]) hydrocodone 10 mg-acetaminophen 325 mg tablet RxNorm: 562826 1 Tablet(s) PO Q6 PRN 09/09/2013 02/06/2014 Inactive hydrocodone 10 mg-acetaminophen 325 mg tablet RxNorm: 309242 Tablet(s) PO TAKE ONE TO TWO TABLETS BY MOUTH EVERY 6 HOURS NEEDED FOR PAIN 09/06/2013 No Stop Date Active (Appended: Controlled substance eRx refill - RxReferenceNumber: [id number]) Norvasc 10 mg tablet RxNorm: 976386 Tablet(s) PO TAKE ONE TABLET BY MOUTH EVERY DAY 09/05/2013 10/25/2015 Inactive trazodone 50 mg tablet RxNorm: 092861 1 1/2 Tablet(s) PO QHS 09/03/2013 03/17/2014 Inactive 75q hs x 2 week may increase to 100mg if nec after that nystatin 100,000 unit/mL oral suspension RxNorm: 932606 6 Milliliter(s) PO QID 08/06/2013 08/15/2013 Inactive Flonase 50 mcg/actuation nasal spray,suspension RxNorm: 372050 2 [place] NASAL daily 08/06/2013 03/03/2014 Inactive nystatin 100,000 unit/mL oral suspension RxNorm: 920749 6 Unit(s) PO QID 08/05/2013 08/05/2013 Inactive Phenergan with Codeine Syrup RxNorm: 5 Milliliter(s) PO Q4 PRN 08/05/2013 12/02/2013 Inactive 8 ounces alprazolam 0.25 mg tablet RxNorm: 032954 1 Tablet(s) PO QDAY PRN 07/29/2013 01/14/2014 Inactive Diflucan 150 mg tablet RxNorm: 366111 1 Tablet(s) PO daily 07/24/2013 07/26/2013 Inactive hydrochlorothiazide 25 mg tablet RxNorm: 803747 Tablet(s) PO TAKE ONE TABLET BY MOUTH EVERY DAY MUST CALL MD FOR APPOINTMENT 07/19/2013 03/05/2014 Inactive Phenergan with Codeine Syrup RxNorm: 10 Milliliter(s) PO Q4 PRN 07/10/2013 08/04/2013 Inactive 8 ounces Rocephin 500 mg solution for injection RxNorm: 640343 1 Inj 07/10/2013 07/10/2013 Inactive cefdinir 300 mg capsule RxNorm: 492844 1 Capsule(s) PO BID 07/10/2013 07/16/2013 Inactive prednisone 10 mg tablet RxNorm: 445036 3 Tablet(s) PO daily 07/10/2013 07/14/2013 Inactive Carafate 100 mg/mL oral suspension RxNorm: 425581 10 Milliliter(s) PO Q6 PRN pt to take carafate 10mL every 6 hours as needed. 07/10/2013 08/05/2014 Inactive Kenalog 40 mg/mL suspension for injection RxNorm: 3942181 1 Milliliter(s) Inj 07/10/2013 07/10/2013 Inactive trazodone 50 mg tablet RxNorm: 096372 1 Tablet(s) PO QHS 07/10/2013 09/02/2013 Inactive sulfamethoxazole 800 mg-trimethoprim 160 mg tablet RxNorm: 671479 1 Tablet(s) PO BID 06/03/2013 06/12/2013 Inactive Synthroid 125 mcg tablet RxNorm: 614215 1 Tablet(s) PO daily 05/07/2013 09/23/2013 Inactive Bystolic 10 mg tablet RxNorm: 232665 1.5 Tablet(s) PO daily 05/07/2013 09/03/2013 Inactive Voltaren 1 % Topical Gel RxNorm: 990904 4 Gram(s) TOP QID apply 4 grams to knees, 2 grams to hands and ankles four times daily. 05/07/2013 09/03/2013 Inactive hydrocodone 10 mg-acetaminophen 325 mg tablet RxNorm: 424815 1 Tablet(s) PO Q6 PRN 04/23/2013 09/09/2013 Inactive Norvasc 10 mg tablet RxNorm: 703669 Tablet(s) PO TAKE ONE TABLET BY MOUTH EVERY DAY 04/23/2013 09/04/2013 Inactive alprazolam 0.25 mg tablet RxNorm: 246234 1 Tablet(s) PO QDAY PRN 03/25/2013 07/22/2013 Inactive Bystolic 10 mg tablet RxNorm: 155668 1 Tablet(s) PO daily TAKE ONE TABLET BY MOUTH EVERY DAY 03/25/2013 05/06/2013 Inactive zolpidem 10 mg tablet RxNorm: 524999 1 Tablet(s) PO HS PRN 03/25/2013 07/09/2013 Inactive gentamicin 0.3 % Eye Drops RxNorm: 270887 3 Drop(s) OPH QID three gtts to each eye QID x 7 days 03/11/2013 03/10/2013 Inactive gentamicin 0.3 % eye drops RxNorm: 396536 3 Drop(s) OPH QID three gtts to each eye QID x 7 days 03/11/2013 03/17/2013 Inactive Nexium 40 mg capsule,delayed release RxNorm: 139929 Capsule(s) PO TAKE ONE CAPSULE BY MOUTH EVERY DAY 02/15/2013 02/17/2014 Inactive Cymbalta 60 mg capsule,delayed release RxNorm: 319286 Capsule(s) PO TAKE ONE CAPSULE BY MOUTH TWICE A DAY 02/15/2013 02/17/2014 Inactive hydrocodone 10 mg-acetaminophen 325 mg tablet RxNorm: 8738849 1 Tablet(s) PO Q6 PRN 01/22/2013 04/22/2013 Inactive Lipitor 10 mg tablet RxNorm: 117729 Tablet(s) PO TAKE ONE TABLET BY MOUTH EVERY DAY 01/07/2013 09/11/2013 Inactive Cymbalta 60 mg capsule,delayed release RxNorm: 929307 Capsule(s) PO TAKE ONE CAPSULE BY MOUTH TWICE A DAY 01/02/2013 02/14/2013 Inactive Synthroid 100 mcg tablet RxNorm: 593871 1 Tablet(s) PO 12/03/2012 05/06/2013 Inactive Enablex 7.5 mg tablet,extended release RxNorm: 752540 1 Tablet(s) PO daily 11/28/2012 11/27/2012 Inactive Enablex 7.5 mg tablet,extended release RxNorm: 966699 1 Tablet(s) PO daily 11/28/2012 11/28/2012 Inactive scopolamine 1.5 mg 72 hr Transderm Patch RxNorm: 735548 1 Milligram(s) TD q72 hours 11/26/2012 05/06/2013 Inactive hydrochlorothiazide 25 mg tablet RxNorm: 485099 Tablet(s) PO TAKE ONE TABLET BY MOUTH EVERY DAY MUST CALL FOR APPOINTMENT 11/24/2012 07/18/2013 Inactive Cymbalta 60 mg capsule,delayed release RxNorm: 444585 Capsule(s) PO TAKE ONE CAPSULE BY MOUTH TWICE A DAY 10/26/2012 01/01/2013 Inactive Bystolic 10 mg tablet RxNorm: 260933 Tablet(s) PO TAKE ONE TABLET BY MOUTH EVERY DAY 10/12/2012 03/25/2013 Inactive zolpidem 10 mg tablet RxNorm: 311733 1 Tablet(s) PO HS PRN 10/02/2012 01/29/2013 Inactive alprazolam 0.25 mg tablet RxNorm: 517496 1 Tablet(s) PO QDAY PRN 10/02/2012 01/29/2013 Inactive Kenalog 40 mg/mL Susp for Injection RxNorm: 9229181 1 Milliliter(s) Inj 09/24/2012 09/24/2012 Inactive Diflucan 150 mg tablet RxNorm: 012657 1 Tablet(s) PO daily 09/24/2012 09/30/2012 Inactive acyclovir 400 mg tablet RxNorm: 037716 1 Tablet(s) PO QID 09/24/2012 10/08/2012 Inactive Cipro 500 mg tablet RxNorm: 194006 1 Tablet(s) PO BID 09/24/2012 09/30/2012 Inactive Tamiflu 75 mg capsule RxNorm: 402224 1 Capsule(s) PO BID 09/17/2012 09/16/2012 Inactive Tamiflu 75 mg capsule RxNorm: 481323 1 Capsule(s) PO BID 09/17/2012 09/16/2012 Inactive Tamiflu 75 mg capsule RxNorm: 452812 1 Capsule(s) PO BID please disregard order for #14 09/17/2012 09/21/2012 Inactive fluconazole 150 mg tablet RxNorm: 756808 1 Tablet(s) PO daily 09/10/2012 09/13/2012 Inactive ketoconazole 2 % Topical Cream RxNorm: 061808 Application TOP BID apply to affected area BID until gone 08/31/2012 No Stop Date Active Norvasc 10 mg tablet RxNorm: 890110 Tablet(s) PO TAKE ONE TABLET BY MOUTH EVERY DAY 08/29/2012 04/22/2013 Inactive Cipro 500 mg tablet RxNorm: 164122 1 Tablet(s) PO BID 08/17/2012 08/26/2012 Inactive Flagyl 500 mg tablet RxNorm: 268651 1 Tablet(s) PO TID 08/17/2012 08/23/2012 Inactive Cipro 500 mg tablet RxNorm: 013184 1 Tablet(s) PO BID 08/17/2012 08/16/2012 Inactive zolpidem 10 mg tablet RxNorm: 726740 1 Tablet(s) PO HS PRN 08/17/2012 09/15/2012 Inactive Flagyl 500 mg tablet RxNorm: 943109 1 Tablet(s) PO TID 08/17/2012 08/16/2012 Inactive alprazolam 0.25 mg tablet RxNorm: 402380 1 Tablet(s) PO QDAY PRN 08/17/2012 09/15/2012 Inactive [place] Allergy 180 mg tablet RxNorm: 798934 1 Tablet(s) PO daily 08/08/2012 02/03/2013 Inactive hydrochlorothiazide 25 mg tablet RxNorm: 454626 1/2 Tablet(s) PO daily 08/08/2012 11/05/2012 Inactive needs appt Carafate 1 gram tablet RxNorm: 691562 1 Tablet(s) PO QID mix with 10 cc water and dissolve into slurry 08/08/2012 08/21/2012 Inactive hydrocodone 10 mg-acetaminophen 325 mg tablet RxNorm: 7375295 1 Tablet(s) PO Q6 PRN 08/08/2012 01/21/2013 Inactive Synthroid 100 mcg tablet RxNorm: 220843 1 Tablet(s) PO 08/08/2012 12/02/2012 Inactive Cymbalta 60 mg capsule,delayed release RxNorm: 400236 Capsule(s) PO 07/23/2012 10/25/2012 Inactive TAKE ONE CAPSULE BY MOUTH TWICE A DAY Nexium 40 mg capsule,delayed release RxNorm: 199835 Capsule(s) PO 06/20/2012 02/14/2013 Inactive TAKE ONE CAPSULE BY MOUTH EVERY DAY Lipitor 10 mg tablet RxNorm: 400847 Tablet(s) PO 06/20/2012 01/06/2013 Inactive TAKE ONE TABLET BY MOUTH EVERY DAY hydrochlorothiazide 25 mg tablet RxNorm: 338028 1 Tablet(s) PO daily 06/19/2012 08/07/2012 Inactive needs appt alprazolam 0.25 mg tablet RxNorm: 290104 1 Tablet(s) PO QDAY PRN 06/05/2012 07/04/2012 Inactive zolpidem 10 mg tablet RxNorm: 481917 1 Tablet(s) PO HS PRN 06/05/2012 07/04/2012 Inactive zolpidem 10 mg tablet RxNorm: 493086 1 Tablet(s) PO HS PRN 04/16/2012 05/15/2012 Inactive alprazolam 0.25 mg tablet RxNorm: 654796 1 Tablet(s) PO QDAY PRN 04/16/2012 05/15/2012 Inactive Cymbalta 60 mg capsule,delayed release RxNorm: 324814 1 Capsule(s) PO BID 03/22/2012 07/19/2012 Inactive Fioricet 50 mg-325 mg-40 mg tablet RxNorm: 177291 1 Tablet(s) PO Q4 PRN 03/22/2012 11/24/2013 Inactive Bystolic 10 mg tablet RxNorm: 701192 Tablet(s) PO 03/22/2012 10/11/2012 Inactive TAKE ONE TABLET BY MOUTH EVERY DAY potassium chloride ER 10 mEq Tab RxNorm: 636383 1 Tablet(s) PO daily 02/24/2012 03/01/2012 Inactive Lasix 20 mg Tab RxNorm: 726423 1 Tablet(s) PO daily 02/22/2012 02/21/2012 Inactive KCL 10 meq RxNorm: 1 PO daily 02/22/2012 02/21/2012 Inactive potassium chloride ER 10 mEq Tab RxNorm: 477793 1 Tablet(s) PO daily 02/22/2012 02/21/2012 Inactive Lasix 20 mg Tab RxNorm: 228829 1 Tablet(s) PO daily 02/22/2012 02/28/2012 Inactive KCL 10 meq RxNorm: 1 PO daily 02/22/2012 02/22/2012 Inactive potassium chloride ER 10 mEq Tab RxNorm: 602956 1 Tablet(s) PO daily 02/22/2012 02/23/2012 Inactive Rocephin 500 mg Solution for Injection RxNorm: 245697 Inj 02/15/2012 02/15/2012 Inactive Nexium 40 mg capsule,delayed release RxNorm: 878955 1 Capsule(s) PO daily 02/15/2012 No Stop Date Active Bystolic 10 mg Tab RxNorm: 534593 1 Tablet(s) PO daily 02/15/2012 08/12/2012 Inactive alprazolam 0.25 mg tablet RxNorm: 278708 1 Tablet(s) PO QDAY PRN 01/31/2012 02/29/2012 Inactive zolpidem 10 mg tablet RxNorm: 417687 1 Tablet(s) PO HS PRN 01/31/2012 02/29/2012 Inactive alprazolam 0.25 mg Tab RxNorm: 497940 1 Tablet(s) PO QDAY PRN 12/16/2011 01/14/2012 Inactive zolpidem 10 mg Tab RxNorm: 094176 1 Tablet(s) PO HS PRN 12/16/2011 01/14/2012 Inactive Norvasc 10 mg tablet RxNorm: 499364 1 Tablet(s) PO daily 12/02/2011 02/21/2012 Inactive Lipitor 10 mg tablet RxNorm: 985363 1 Tablet(s) PO daily 11/16/2011 05/13/2012 Inactive zolpidem 10 mg Tab RxNorm: 073669 1 Tablet(s) PO HS PRN 10/26/2011 12/15/2011 Inactive alprazolam 0.25 mg Tab RxNorm: 952116 1 Tablet(s) PO QDAY PRN 10/26/2011 12/15/2011 Inactive hydrochlorothiazide 25 mg tablet RxNorm: 205973 1 Tablet(s) PO daily 09/05/2011 03/02/2012 Inactive Synthroid 75 mcg tablet RxNorm: 987096 1 Tablet(s) PO daily 08/01/2011 02/26/2012 Inactive Abilify 2 mg Tab RxNorm: 210485 1 Tablet(s) PO QHS 08/01/2011 09/10/2012 Inactive dicyclomine 10 mg Cap RxNorm: 256413 1 Capsule(s) PO TID 08/01/2011 10/29/2011 Inactive alprazolam 0.25 mg Tab RxNorm: 527491 1 Tablet(s) PO QDAY PRN 07/26/2011 10/25/2011 Inactive Fioricet 50 mg-325 mg-40 mg tablet RxNorm: 551623 1 Tablet(s) PO Q4 PRN 07/14/2011 03/21/2012 Inactive Rocephin 500 mg Solution for Injection RxNorm: 040711 1 Milliliter(s) Inj 07/14/2011 08/01/2011 Inactive Nexium 40 mg Capsule, delayed release RxNorm: 251810 1 Capsule(s) PO daily 05/23/2011 10/06/2011 Inactive Bystolic 10 mg tablet RxNorm: 621021 1 Tablet(s) PO daily 05/23/2011 11/18/2011 Inactive Bystolic 10 mg Tab RxNorm: 343313 1 Tablet(s) PO daily 05/23/2011 05/22/2011 Inactive alprazolam 0.25 mg Tab RxNorm: 510142 1 Tablet(s) PO QDAY PRN 05/23/2011 07/25/2011 Inactive Influenza Virus Vaccine 0.5 mL RxNorm: IM 05/23/2011 05/23/2011 Inactive zolpidem 10 mg Tab RxNorm: 576064 1 Tablet(s) PO HS PRN 05/23/2011 10/25/2011 Inactive Rocephin 500 mg Solution for Injection RxNorm: 148963 1 Milliliter(s) Inj 05/03/2011 07/14/2011 Inactive Kenalog 40 mg/mL Susp for Injection RxNorm: 1024787 1 Milliliter(s) Inj 05/03/2011 07/14/2011 Inactive Bactrim DS 800 mg-160 mg Tab RxNorm: 138097 1 Tablet(s) PO BID 05/03/2011 08/01/2011 Inactive Flonase 50 mcg/actuation nasal spray,suspension RxNorm: 6013480 1 [place] NASAL daily No Start Date Active 1 spray to each nostril daily aspirin 81 mg tablet RxNorm: 742511 1 Tablet(s) PO daily No Start Date Active baclofen 10 mg tablet RxNorm: 739913 1 Tablet(s) PO TID as needed muscle spasms No Start Date Active Fish Oil 1,000 mg Cap RxNorm: 1 Capsule(s) PO TID No Start Date Active Flonase 50 mcg/actuation nasal spray,suspension RxNorm: 6004222 2 [place] NASAL daily No Start Date 08/05/2013 Inactive Duragesic 50 mcg/hr transdermal patch RxNorm: 807441 1 TD q72 hours No Start Date 01/13/2014 Inactive Vesicare 5 mg tablet RxNorm: 642211 1 Tablet(s) PO daily No Start Date 01/06/2015 Inactive Celebrex 200 mg capsule RxNorm: 708613 1 Capsule(s) PO daily No Start Date 04/02/2014 Inactive zolpidem 10 mg Tab RxNorm: 500613 1 Tablet(s) PO HS PRN No Start Date 05/22/2011 Inactive Zyrtec 10 mg Tab RxNorm: 5302917 1 Tablet(s) PO daily No Start Date 08/08/2012 Inactive Nexium 40 mg Cap RxNorm: 500208 1 Capsule(s) PO daily No Start Date 05/22/2011 Inactive ketoconazole 2 % Topical Cream RxNorm: 750087 Application TOP BID apply to affected area BID until gone No Start Date 08/30/2012 Inactive Cymbalta 60 mg capsule,delayed release RxNorm: 835487 1 Capsule(s) PO BID No Start Date 03/21/2012 Inactive alprazolam 0.25 mg Tab RxNorm: 048920 1 Tablet(s) PO QDAY PRN No Start Date 05/22/2011 Inactive Toprol XL 100 mg 24 hr Tab RxNorm: 730917 1 Tablet(s) PO BID No Start Date 04/25/2011 Inactive Xanax 0.25 mg tablet RxNorm: 266967 1 Tablet(s) PO daily as needed No Start Date 12/27/2015 Inactive Bystolic 10 mg Tab RxNorm: 547281 1 Tablet(s) PO daily No Start Date 05/22/2011 Inactive Fioricet 50 mg-325 mg-40 mg Tab RxNorm: 412823 1 Tablet(s) PO Q4 PRN No Start Date 07/13/2011 Inactive albuterol sulfate HFA 90 mcg/Actuation Aerosol Inhaler RxNorm: 0767341 1 INH Q4 PRN No Start Date 01/06/2015 Inactive Imitrex 50 mg tablet RxNorm: 486391 1 Tablet(s) PO Q8 as needed may repeat x1 dose in 1 hour of inital dose. No Start Date 02/24/2016 Inactive dc fioricet Tessalon 200 mg Cap RxNorm: 369423 1 Capsule(s) PO Q4 PRN No Start Date 02/14/2012 Inactive Zithromax Z-Sergio 250 mg tablet RxNorm: 800324 Tablet(s) PO No Start Date 11/10/2013 Inactive hydrochlorothiazide 25 mg Tab RxNorm: 537286 1 Tablet(s) PO daily No Start Date 09/04/2011 Inactive Deplin 15 mg Tab RxNorm: 1 Tablet(s) PO daily No Start Date 08/01/2011 Inactive Brilinta 90 mg tablet RxNorm: 2879084 1 Tablet(s) PO BID No Start Date 11/23/2015 Inactive Synthroid 75 mcg Tab RxNorm: 144037 1 Tablet(s) PO daily No Start Date 07/31/2011 Inactive scopolamine 1.5 mg 72 hr Transderm Patch RxNorm: 906364 1 Milligram(s) TD q72 hours No Start Date 11/25/2012 Inactive hydrocodone-acetaminophen 10 mg-325 mg tablet RxNorm: 3347940 1 Tablet(s) PO Q6 PRN No Start Date 08/07/2012 Inactive Phenergan with Codeine Syrup RxNorm: 5-10 Milliliter(s) PO Q6 PRN No Start Date 02/14/2012 Inactive Norvasc 10 mg Tab RxNorm: 642770 1 Tablet(s) PO daily No Start Date 12/01/2011 Inactive Zithromax Z-Sergio 250 mg Tab RxNorm: 393271 Tablet(s) PO No Start Date 08/01/2011 Inactive Medication Administered Medication Codes Instructions Start Date Status ceftriaxone 500 mg solution for injection RxNorm: 4992775 1Milliliter 11/28/2016 No longer Active Kenalog 40 mg/mL suspension for injection RxNorm: 1956315 Milliliter 11/07/2016 No longer Active ceftriaxone 500 mg solution for injection RxNorm: 9876852 11/07/2016 No longer Active ceftriaxone 500 mg solution for injection RxNorm: 2328154 12/07/2015 No longer Active Kenalog 40 mg/mL suspension for injection RxNorm: 3582194 1Milliliter 11/24/2015 No longer Active ceftriaxone 500 mg solution for injection RxNorm: 7990301 Milliliter 11/24/2015 No longer Active promethazine 25 mg/mL injection solution RxNorm: 776636 Milliliter 08/27/2015 No longer Active ketorolac 60 mg/2 mL intramuscular solution RxNorm: 244681 Milliliter 08/27/2015 No longer Active Kenalog 40 mg/mL suspension for injection RxNorm: 7187152 Milliliter 08/10/2015 No longer Active ceftriaxone 500 mg solution for injection RxNorm: 9713135 08/10/2015 No longer Active ceftriaxone 500 mg solution for injection RxNorm: 7832413 1Milliliter 07/28/2015 No longer Active Kenalog 40 mg/mL suspension for injection RxNorm: 8176959 Milliliter 03/19/2015 No longer Active Kenalog 40 mg/mL suspension for injection RxNorm: 0823065 Milliliter 06/23/2014 No longer Active ceftriaxone 500 mg solution for injection RxNorm: 294666 06/23/2014 No longer Active Rocephin 500 mg solution for injection RxNorm: 200426 1mlMilliliter 09/24/2013 No longer Active Rocephin 500 mg solution for injection RxNorm: 857232 1Milliliter 09/19/2013 No longer Active Rocephin 500 mg solution for injection RxNorm: 102120 1 07/10/2013 No longer Active Kenalog 40 mg/mL suspension for injection RxNorm: 9609215 1Milliliter 07/10/2013 No longer Active Kenalog 40 mg/mL Susp for Injection RxNorm: 6523309 1Milliliter 09/24/2012 No longer Active Rocephin 500 mg Solution for Injection RxNorm: 164373 02/15/2012 No longer Active Influenza Virus Vaccine 0.5 mL RxNorm: 05/23/2011 No longer Active Immunizations Vaccine Codes Date Status Influenza CVX: 141 06/24/2013 completed Pneumococcal CVX: 33 06/24/2013 completed PPD Unknown 05/13/2013 completed Assessments Condition Codes Effective Dates Epigastric pain ICD-10: R10.13 ICD-9: 536.8 02/20/2017 Left upper quadrant pain ICD-10: R10.12 ICD-9: 789.02 02/20/2017 Left lower quadrant pain ICD-10: R10.32 ICD-9: 789.04 02/20/2017 Major depressive disorder, recurrent, moderate ICD-10: F33.1 ICD-9: 296.32 02/06/2017 Actinic keratosis ICD-10: L57.0 ICD-9: 702.0 02/06/2017 Generalized anxiety disorder ICD-10: F41.1 ICD-9: 300.02 02/06/2017 Acute recurrent maxillary sinusitis ICD-10: J01.01 ICD-9: 461.0 11/28/2016 Dysuria ICD-10: R30.0 ICD-9: 788.1 11/28/2016 Other [...] Visit Reason For Visit Effective Dates Notes abdominal pain 02/20/2017 depression 02/06/2017 skin lesion [...] 26.9 % 11/07/2016 Cbc With Differential Ord2 [place]% 6.1 % 11/07/2016 Cbc With Differential Ord2 [...] 2.48 K/ul 11/07/2016 Cbc With Differential Ord2 [place] ABS# 0.6 K/ul 11/07/2016 Cbc With Differential Ord2 [place] ABS# 0.3 K/ul 11/07/2016 Cbc With Differential Ord2 Baso ABS# 0.1 K/ul 11/07/2016 Comp Metabolic Fut595 NA 139 mEq/L 11/07/2016 Comp Metabolic Grz045 K 3.8 mEq/L 11/07/2016 Comp Metabolic Bgo384 CL 106 mEq/L 11/07/2016 Comp Metabolic Ybe222 CO2 25.0 mEq/L 11/07/2016 Comp Metabolic Ohq983 ANION GAP 12 11/07/2016 Comp Metabolic Mwd066 GLUCOSE 98 mg/dL 11/07/2016 Comp Metabolic Gkj637 Creat 0.8 mg/dL 11/07/2016 Comp Metabolic Zwc016 eGFR 71 ml/min/1.73m2 11/07/2016 Comp Metabolic Rjk492 BUN 36 mg/dL 11/07/2016 Comp Metabolic Bax256 B/C Ratio 42.9 Ratio 11/07/2016 Comp Metabolic Ujh675 CALCIUM 9.9 mg/dL 11/07/2016 Comp Metabolic Ehh189 ALK PHOS 57 U/L 11/07/2016 Comp Metabolic Yqp385 AST(SGOT) 24 U/L 11/07/2016 Comp Metabolic Fqt472 ALT(SGPT) 28 U/L 11/07/2016 Comp Metabolic Upm404 BILI T 0.4 mg/dL 11/07/2016 Comp Metabolic Mai265 ALBUMIN 4.2 g/dL 11/07/2016 Comp Metabolic Nts310 TPRO 7.0 g/dL 11/07/2016 Comp Metabolic Sns455 GLOB 2.8 g/dL 11/07/2016 Comp Metabolic Rom837 A/G Ratio 1.5 Ratio 11/07/2016 Comp Metabolic Yyb397 Osmo 286 mOsmo 11/07/2016 Free T4 Drb603 FREE T4 0.75 ng/dL 11/07/2016 Tsh Ord6 hTSH II 3.46 uIU/mL 11/07/2016 Comp Metabolic Hna108 NA 138 mEq/L 05/10/2016 Comp Metabolic Spo882 K 3.8 mEq/L 05/10/2016 Comp Metabolic Dmw564 CL 102 mEq/L 05/10/2016 Comp Metabolic Tly480 CO2 29.0 mEq/L 05/10/2016 Comp Metabolic Gkq503 ANION GAP 11 05/10/2016 Comp Metabolic Poo875 GLUCOSE 107 mg/dL 05/10/2016 Comp Metabolic Eic372 Creat 0.7 mg/dL 05/10/2016 Comp Metabolic Imf540 eGFR 93 ml/min/1.73m2 05/10/2016 Comp Metabolic Fxl480 BUN 18 mg/dL 05/10/2016 Comp Metabolic Mfy985 B/C Ratio 26.9 Ratio 05/10/2016 Comp Metabolic Ofb017 CALCIUM 9.8 mg/dL 05/10/2016 Comp Metabolic Jfw855 ALK PHOS 60 U/L 05/10/2016 Comp Metabolic Mxq555 AST(SGOT) 21 U/L 05/10/2016 Comp Metabolic Fwb551 ALT(SGPT) 23 U/L 05/10/2016 Comp Metabolic Ycw584 BILI T 0.5 mg/dL 05/10/2016 Comp Metabolic Pce407 ALBUMIN 4.1 g/dL 05/10/2016 Comp Metabolic Evw161 TPRO 6.7 g/dL 05/10/2016 Comp Metabolic Wic098 GLOB 2.7 g/dL 05/10/2016 Comp Metabolic Epb476 A/G Ratio 1.5 Ratio 05/10/2016 Comp Metabolic Pks958 Osmo 278 mOsmo 05/10/2016 Lipid Ord30 CHOL 169 mg/dL 05/10/2016 Lipid Ord30 HDL 50.0 mg/dl 05/10/2016 Lipid Ord30 TRIG 161 mg/dL 05/10/2016 Lipid Ord30 LDL 87 mg/dL 05/10/2016 Lipid Ord30 C/HDL 3.4 Ratio 05/10/2016 Comp Metabolic Mss599 NA 137 mEq/L 06/12/2015 Comp Metabolic Vtj219 K 3.8 mEq/L 06/12/2015 Comp Metabolic Ddz888 CL 104 mEq/L 06/12/2015 Comp Metabolic Ime423 CO2 24.0 mEq/L 06/12/2015 Comp Metabolic Oih264 ANION GAP 13 06/12/2015 Comp Metabolic Ibv429 GLUCOSE 92 mg/dL 06/12/2015 Comp Metabolic Nlu717 Creat 0.7 mg/dL 06/12/2015 Comp Metabolic Qlw696 eGFR 87 ml/min/1.73m2 06/12/2015 Comp Metabolic Gwm173 BUN 31 mg/dL 06/12/2015 Comp Metabolic Cwb362 B/C Ratio 43.7 Ratio 06/12/2015 Comp Metabolic Ody730 CALCIUM 10.0 mg/dL 06/12/2015 Comp Metabolic Dyy802 ALK PHOS 58 U/L 06/12/2015 Comp Metabolic Opm574 AST(SGOT) 32 U/L 06/12/2015 Comp Metabolic Mad867 ALT(SGPT) 33 U/L 06/12/2015 Comp Metabolic Ycp968 BILI T 0.5 mg/dL 06/12/2015 Comp Metabolic Qit873 ALBUMIN 4.1 g/dL 06/12/2015 Comp Metabolic Fll850 TPRO 6.6 g/dL 06/12/2015 Comp Metabolic Moq038 GLOB 2.5 g/dL 06/12/2015 Comp Metabolic Scv483 A/G Ratio 1.6 Ratio 06/12/2015 Comp Metabolic Xoq957 Osmo 280 mOsmo 06/12/2015 Cbc With Differential [...] Differential Ord2 RDW 14.2 % 06/12/2015 CBC [id number] WBC 8.7 10e9/L 04/30/2013 CBC 4394805 RBC 4.63 10e12/L 04/30/2013 CBC 7465442 HGB 14.1 g/dL 04/30/2013 CBC 1668939 HCT DET 42.2 % 04/30/2013 CBC 1333563 MCV 91.1 fL 04/30/2013 CBC 5860960 MCH 30.5 pg 04/30/2013 CBC 6969516 MCHC 33.4 g/dL 04/30/2013 CBC 9877291 PLT 248 10e9/L 04/30/2013 CBC 9754834 MPV 12.1 fL 04/30/2013 CBC 8172032 LARA % 59.0 % 04/30/2013 CBC 0731290 LY % 27.6 % 04/30/2013 CBC 9804630 MON % 8.0 % 04/30/2013 CBC 6280025 EOS % 4.8 % 04/30/2013 CBC 3700445 BASO % 0.6 % 04/30/2013 CBC 7679718 RDW 13.3 % 04/30/2013 CBC 3286438 ABS LARA 5.13 10e9/L 04/30/2013 CBC 1501917 ABS LYMPH 2.40 10e9/L 04/30/2013 CBC 7348638 ABS MONO 0.70 10e9/L 04/30/2013 CBC 1946986 ABS EOS 0.42 10e9/L 04/30/2013 CBC 0696514 ABS BASO 0.05 10e9/L 04/30/2013 CBC 1468589 RDW-SD 43.1 fL 04/30/2013 TSH 7852448 TSH 4.339 uIU/ML 04/30/2013 A1C HPLC 6519397 A1C HPLC 33118-2 5.6 % 04/30/2013 FREE T4 5970253 FREE T4 0.84 NG/DL 04/30/2013 GFR CALC 2516004 GFR AA >60 ML/MIN 04/30/2013 GFR CALC 4387154 GFR NON-AA >60 ML/MIN 04/30/2013 CHEM 14 2210947 AST 22 U/L 04/30/2013 CHEM 14 0330060 ALT 22 IU/L 04/30/2013 CHEM 14 8094290 BUN 24 MG/DL 04/30/2013 CHEM 14 9983910 ALBUMIN 4.2 GM/DL 04/30/2013 CHEM 14 7962008 CHLORIDE 107 MMOL/L 04/30/2013 CHEM 14 3323464 BILI TOT 0.3 MG/DL 04/30/2013 CHEM 14 0400474 ALK PHOS 88 U/L 04/30/2013 CHEM 14 1748786 SODIUM 141 MMOL/L 04/30/2013 CHEM 14 7009373 CREATININE 0.60 MG/DL 04/30/2013 CHEM 14 9812371 CALCIUM 9.9 MG/DL 04/30/2013 CHEM 14 1619578 POTASSIUM 3.7 MMOL/L 04/30/2013 CHEM 14 5584692 PROT TOT 6.6 GM/DL 04/30/2013 CHEM 14 5029476 GLUCOSE 123 MG/DL 04/30/2013 CHEM 14 6453909 BICARB 25 MMOL/L 04/30/2013 CHEM 14 1943446 ANION GAP 9 MEQ/L 04/30/2013 LIPID GRP HDL TEST 46 MG/DL 04/30/2013 LIPID GRP TRIG 148 MG/DL 04/30/2013 LIPID GRP TEST LDL 75 MG/DL 04/30/2013 LIPID GRP CHOL 151 MG/DL 04/30/2013 LIPID GRP RCHOL/HDL 3.28 RATIO 04/30/2013 TSH 2413674 TSH 3.341 uIU/ML 11/29/2012 CBC 9011991 WBC 8.4 10e9/L 11/29/2012 CBC 3961959 RBC 4.77 10e12/L 11/29/2012 CBC 9228517 HGB 14.9 g/dL 11/29/2012 CBC 8285250 HCT DET 44.2 % 11/29/2012 CBC 0012870 MCV 92.7 fL 11/29/2012 CBC 7193873 MCH 31.2 pg 11/29/2012 CBC 2301176 MCHC 33.7 g/dL 11/29/2012 CBC 1693058 PLT 253 10e9/L 11/29/2012 CBC 4769669 MPV 11.8 fL 11/29/2012 CBC 0613084 LARA % 54.9 % 11/29/2012 CBC 7911241 LY % 29.0 % 11/29/2012 CBC 1374507 MON % 10.4 % 11/29/2012 CBC 7524998 EOS % 5.1 % 11/29/2012 CBC 7615161 BASO % 0.6 % 11/29/2012 CBC 5840749 RDW 13.8 % 11/29/2012 CBC 1457946 ABS LARA 4.61 10e9/L 11/29/2012 CBC 9572306 ABS LYMPH 2.44 10e9/L 11/29/2012 CBC 0563105 ABS MONO 0.87 10e9/L 11/29/2012 CBC 5805041 ABS EOS 0.43 10e9/L 11/29/2012 CBC 2228531 ABS BASO 0.05 10e9/L 11/29/2012 CBC 7174586 RDW-SD 45.9 fL 11/29/2012 CHEM 14 5432119 AST 25 U/L 11/29/2012 CHEM 14 5929305 ALT 26 IU/L 11/29/2012 CHEM 14 7227343 BUN 25 MG/DL 11/29/2012 CHEM 14 9670923 ALBUMIN 4.4 GM/DL 11/29/2012 CHEM 14 2296622 CHLORIDE 106 MMOL/L 11/29/2012 CHEM 14 7611582 BILI TOT 0.4 MG/DL 11/29/2012 CHEM 14 3655833 ALK PHOS 86 U/L 11/29/2012 CHEM 14 4806409 SODIUM 141 MMOL/L 11/29/2012 CHEM 14 9041870 CREATININE 0.80 MG/DL 11/29/2012 CHEM 14 2677080 CALCIUM 9.7 MG/DL 11/29/2012 CHEM 14 2190868 POTASSIUM 4.0 MMOL/L 11/29/2012 CHEM 14 4479746 PROT TOT 6.6 GM/DL 11/29/2012 CHEM 14 6834331 GLUCOSE 112 MG/DL 11/29/2012 CHEM 14 9512372 BICARB 29 MMOL/L 11/29/2012 CHEM 14 0590701 ANION GAP 6 MEQ/L 11/29/2012 A1C HPLC 6779489 A1C HPLC 02177-2 5.5 % 11/29/2012 LIPID GRP HDL TEST 54 MG/DL 11/29/2012 LIPID GRP TRIG 77 MG/DL 11/29/2012 LIPID GRP TEST LDL 78 MG/DL 11/29/2012 LIPID GRP CHOL 147 MG/DL 11/29/2012 LIPID GRP RCHOL/HDL 2.72 RATIO 11/29/2012 FREE T4 2129525 FREE T4 1.23 NG/DL 11/29/2012 GFR CALC 1003457 GFR AA >60 ML/MIN 11/29/2012 GFR CALC 6951992 GFR NON-AA >60 ML/MIN 11/29/2012 CHEM 14 0992413 AST 23 U/L 08/07/2012 CHEM 14 3078834 ALT 34 IU/L 08/07/2012 CHEM 14 5374448 BUN 26 MG/DL 08/07/2012 CHEM 14 0126426 ALBUMIN 4.4 GM/DL 08/07/2012 CHEM 14 1428056 CHLORIDE 105 MMOL/L 08/07/2012 CHEM 14 4109713 BILI TOT 0.5 MG/DL 08/07/2012 CHEM 14 0228414 ALK PHOS 79 U/L 08/07/2012 CHEM 14 9036500 SODIUM 140 MMOL/L 08/07/2012 CHEM 14 1515016 CREATININE 0.71 MG/DL 08/07/2012 CHEM 14 0759987 CALCIUM 10.4 MG/DL 08/07/2012 CHEM 14 1700052 POTASSIUM 3.8 MMOL/L 08/07/2012 CHEM 14 4574303 PROT TOT 6.8 GM/DL 08/07/2012 CHEM 14 6478060 GLUCOSE 104 MG/DL 08/07/2012 CHEM 14 0106534 BICARB 27 MMOL/L 08/07/2012 CHEM 14 7752805 ANION GAP 8 MEQ/L 08/07/2012 A1C HPLC 8663510 A1C HPLC 18018-4 5.4 % 08/07/2012 FREE T4 1033457 FREE T4 1.11 NG/DL 08/07/2012 LIPID GRP HDL TEST 50 MG/DL 08/07/2012 LIPID GRP TRIG 127 MG/DL 08/07/2012 LIPID GRP TEST LDL 93 MG/DL 08/07/2012 LIPID GRP CHOL 168 MG/DL 08/07/2012 LIPID GRP RCHOL/HDL 3.36 RATIO 08/07/2012 CBC 1105558 WBC 8.7 10e9/L 08/07/2012 CBC 5180768 RBC 4.67 10e12/L 08/07/2012 CBC 7026952 HGB 14.4 g/dL 08/07/2012 CBC 7853926 HCT DET 42.8 % 08/07/2012 CBC 4393510 MCV 91.6 fL 08/07/2012 CBC 3861824 MCH 30.8 pg 08/07/2012 CBC 8787570 MCHC 33.6 g/dL 08/07/2012 CBC 5991616 PLT 271 10e9/L 08/07/2012 CBC 4273582 MPV 12.3 fL 08/07/2012 CBC 3892950 LARA % 50.6 % 08/07/2012 CBC 5522478 LY % 34.9 % 08/07/2012 CBC 1242441 MON % 9.1 % 08/07/2012 CBC 0067908 EOS % 5.1 % 08/07/2012 CBC 1066753 BASO % 0.3 % 08/07/2012 CBC 2119601 RDW 13.6 % 08/07/2012 CBC 8294657 ABS LARA 4.40 10e9/L 08/07/2012 CBC 5835940 ABS LYMPH 3.04 10e9/L 08/07/2012 CBC 1696607 ABS MONO 0.79 10e9/L 08/07/2012 CBC 2265896 ABS EOS 0.44 10e9/L 08/07/2012 CBC 4583724 ABS BASO 0.03 10e9/L 08/07/2012 CBC 9250599 RDW-SD 44.1 fL 08/07/2012 TSH 2350767 TSH 7.419 uIU/ML 08/07/2012 GFR CALC 3697574 GFR AA >60 ML/MIN 08/07/2012 GFR CALC 8420798 GFR NON-AA >60 ML/MIN 08/07/2012 A1C HPLC 2720445 A1C HPLC 02435-6 5.3 % 02/21/2012 TSH 2012940 TSH 0.832 uIU/ML 02/16/2012 FREE T4 8779738 FREE T4 1.04 NG/DL 02/16/2012 GFR CALC 2486329 GFR AA >60 ML/MIN 02/16/2012 GFR CALC 3780087 GFR NON-AA >60 ML/MIN 02/16/2012 [facility] GLUCOSE 112 MG/DL 02/16/2012 BMP CREATININE 0.65 MG/DL 02/16/2012 BMP BUN 17 MG/DL 02/16/2012 BMP SODIUM 144 MMOL/L 02/16/2012 BMP POTASSIUM 4.0 MMOL/L 02/16/2012 BMP CHLORIDE 107 MMOL/L 02/16/2012 BMP BICARB 29 MMOL/L 02/16/2012 BMP ANION GAP 8 MEQ/L 02/16/2012 BMP CALCIUM 9.5 MG/DL 02/16/2012 CBC 5158860 WBC 7.1 10e9/L 02/16/2012 CBC 0636397 RBC 4.47 10e12/L 02/16/2012 CBC 1809341 HGB 13.5 g/dL 02/16/2012 CBC 8095941 HCT DET 40.7 % 02/16/2012 CBC 2042219 MCV 91.1 fL 02/16/2012 CBC 2365271 MCH 30.2 pg 02/16/2012 CBC 8735349 MCHC 33.2 g/dL 02/16/2012 CBC 8596590 PLT 238 10e9/L 02/16/2012 CBC 0387804 MPV 11.4 fL 02/16/2012 CBC 5788062 LARA % 55.7 % 02/16/2012 CBC 0844456 LY % 29.6 % 02/16/2012 CBC 7271367 MON % 9.2 % 02/16/2012 CBC 7218776 EOS % 5.1 % 02/16/2012 CBC 6406528 BASO % 0.4 % 02/16/2012 CBC 1676647 RDW 13.0 % 02/16/2012 CBC 9366925 ABS LARA 3.95 10e9/L 02/16/2012 CBC 8794842 ABS LYMPH 2.10 10e9/L 02/16/2012 CBC 3058129 ABS MONO 0.65 10e9/L 02/16/2012 CBC 7517210 ABS EOS 0.36 10e9/L 02/16/2012 CBC 8223109 ABS BASO 0.03 10e9/L 02/16/2012 CBC 0096781 RDW-SD 42.4 fL 02/16/2012 URINALYSIS NONAUTO W/O SCOPE 78567 Specific Hugo 1.015 DateTime(Free Text in Aprima) URINALYSIS NONAUTO W/O SCOPE 41715 PH 7 DateTime(Free Text in Aprima) URINALYSIS NONAUTO W/O SCOPE 30439 GLUCOSE neg DateTime(Free Text in Aprima) URINALYSIS NONAUTO W/O SCOPE 75208 Protein 1+ DateTime(Free Text in Aprima) URINALYSIS NONAUTO W/O SCOPE 64157 Blood neg DateTime(Free Text in Aprima) URINALYSIS NONAUTO W/O SCOPE 99937 Bilirubin neg DateTime(Free Text in Aprima) URINALYSIS NONAUTO W/O SCOPE 08411 Ketones neg DateTime(Free Text in Aprima) URINALYSIS NONAUTO W/O SCOPE 20477 Urobilinogen neg DateTime(Free Text in Aprima) URINALYSIS NONAUTO W/O SCOPE 43714 Nitrite postive DateTime(Free Text in Aprima) URINALYSIS NONAUTO W/O SCOPE 67166 Leukocytes 3+ DateTime(Free Text in Aprima) URINALYSIS NONAUTO W/O SCOPE 15136 Specific Hugo 1.030 DateTime(Free Text in Aprima) URINALYSIS NONAUTO W/O SCOPE 39356 PH 6 DateTime(Free Text in Aprima) URINALYSIS NONAUTO W/O SCOPE 50411 GLUCOSE neg DateTime(Free Text in Aprima) URINALYSIS NONAUTO W/O SCOPE 52212 Protein neg DateTime(Free Text in Aprima) URINALYSIS NONAUTO W/O SCOPE 71405 Blood neg DateTime(Free Text in Aprima) URINALYSIS NONAUTO W/O SCOPE 34679 Bilirubin neg DateTime(Free Text in Aprima) URINALYSIS NONAUTO W/O SCOPE 33434 Ketones neg DateTime(Free Text in Aprima) URINALYSIS NONAUTO W/O SCOPE 04210 Urobilinogen neg DateTime(Free Text in Aprima) URINALYSIS NONAUTO W/O SCOPE 40454 Nitrite neg DateTime(Free Text in Aprima) URINALYSIS NONAUTO W/O SCOPE 03199 Leukocytes trace DateTime(Free Text in Aprima) URINALYSIS NONAUTO W/O SCOPE 24230 Specific Hugo 1.005 DateTime(Free Text in Aprima) URINALYSIS NONAUTO W/O SCOPE 37506 PH 5 DateTime(Free Text in Aprima) URINALYSIS NONAUTO W/O SCOPE 43164 GLUCOSE neg DateTime(Free Text in Aprima) URINALYSIS NONAUTO W/O SCOPE 61621 Protein neg DateTime(Free Text in Aprima) URINALYSIS NONAUTO W/O SCOPE 72481 Blood neg DateTime(Free Text in Aprima) URINALYSIS NONAUTO W/O SCOPE 46499 Bilirubin neg DateTime(Free Text in Aprima) URINALYSIS NONAUTO W/O SCOPE 00723 Ketones neg DateTime(Free Text in Aprima) URINALYSIS NONAUTO W/O SCOPE 81142 Urobilinogen neg DateTime(Free Text in Aprima) URINALYSIS NONAUTO W/O SCOPE 46100 Nitrite neg DateTime(Free Text in Aprima) URINALYSIS NONAUTO W/O SCOPE 49761 Leukocytes neg DateTime(Free Text in Aprima) UA 03830 Specific Hugo 1.030 DateTime(Free Text in Aprima) UA 01005 PH 5 DateTime(Free Text in Aprima) UA 00630 GLUCOSE neg DateTime(Free Text in Aprima) UA 31566 Protein trace DateTime(Free Text in Aprima) UA 88262 Blood large DateTime(Free Text in Aprima) UA 73047 Bilirubin neg DateTime(Free Text in Aprima) UA 15496 Ketones neg DateTime(Free Text in Aprima) UA 64748 Urobilinogen neg DateTime(Free Text in Aprima) UA 82962 Nitrite neg DateTime(Free Text in Aprima) UA 15964 Leukocytes large DateTime(Free Text in Aprima) Review of Systems System Result Effective Dates Constitutional recent illness 02/20/2017 Constitutional fatigue 02/20/2017 [...] intact 09/19/2013 None Full Exam - General 1995 Psychiatric [...] clear 08/05/2013 None Full Exam - General 1995 Ears/Nose/Throat [...] edema 04/25/2011 None Procedures Procedure Codes Date DESTRUCT PREMALG LESION CPT-4: 00280Sxisgik 12/05/2016 DESTRUCT PREMALG LES 2-14 CPT-4: 06258Twcxbzr 12/05/2016 URINALYSIS NONAUTO W/O SCOPE CPT-4: 66446Dsgbphi 11/28/2016 ROCEPHIN, PER 250 MG CPT-4: Y5161Titprit 11/28/2016 PPPS, SUBSEQ VISIT CPT-4: M6985Humhroz 11/07/2016 THER/PROPH/DIAG INJ SC/IM CPT-4: 56127Gbnhsbp 11/07/2016 TRIAMCINOLONE ACET INJ NOS CPT-4: S8720Qvkjska 11/07/2016 ROCEPHIN, PER 250 MG CPT-4: O5043Mplmtdi 11/07/2016 THER/PROPH/DIAG INJ SC/IM CPT-4: 13395Wfogwrt 08/15/2016 TRIAMCINOLONE ACET INJ NOS CPT-4: Q2606Brjcfig 08/15/2016 ROCEPHIN, PER 250 MG CPT-4: O7912Wwyrszn 08/15/2016 URINALYSIS NONAUTO W/O SCOPE CPT-4: 06407Haperxa 05/05/2016 ROCEPHIN, PER 250 MG CPT-4: G2204Whtowdy 12/07/2015 TRIAMCINOLONE ACET INJ NOS CPT-4: V3224Fpnrmjp 11/24/2015 ROCEPHIN, PER 250 MG CPT-4: J8290Feiuqvt 11/24/2015 THER/PROPH/DIAG INJ SC/IM CPT-4: 74769Qfeitih 11/24/2015 THER/PROPH/DIAG INJ SC/IM CPT-4: 36290Dytmckj 08/27/2015 KETOROLAC TROMETHAMINE INJ CPT-4: Y9520Tawpsgo 08/27/2015 PROMETHAZINE HCL INJECTION CPT-4: K1553Ajsmoot 08/27/2015 THER/PROPH/DIAG INJ SC/IM CPT-4: 13987Rietkza 08/10/2015 TRIAMCINOLONE ACET INJ NOS CPT-4: S1965Uboqevz 08/10/2015 ROCEPHIN, PER 250 MG CPT-4: M8883Hhuobwo 08/10/2015 C WOUN RTS (CULTURE OTHR SPECIMN AEROBIC) CPT-4: 16516Ijzdkox 07/28/2015 THER/PROPH/DIAG INJ SC/IM CPT-4: 67716Tsljfay 03/19/2015 TRIAMCINOLONE ACET INJ NOS CPT-4: Y5241Pievdbi 03/19/2015 ROCEPHIN, PER 250 MG CPT-4: X9745Pdzkryv 06/23/2014 TRIAMCINOLONE ACET INJ NOS CPT-4: G3545Tgxovab 06/23/2014 INJ TRIGGER POINT 1/2 MUSCL CPT-4: 59188Dzrsljv 06/05/2014 URINALYSIS NONAUTO W/O SCOPE CPT-4: 03738Ygwcggd 02/11/2014 URINALYSIS NONAUTO W/O SCOPE CPT-4: 64732Ntkeqfu 10/15/2013 ROCEPHIN, PER 250 MG CPT-4: B6634Qtfqsoz 09/24/2013 THER/PROPH/DIAG INJ SC/IM CPT-4: 08271Aowabkh 09/19/2013 ROCEPHIN, PER 250 MG CPT-4: G9473Dwwjytx 09/19/2013 PRESCRIP TRANSMIT VIA ERX SY CPT-4: C2738Djjpkwn 08/05/2013 ROCEPHIN, PER 250 MG CPT-4: F0732Clwqqwv 07/10/2013 THER/PROPH/DIAG INJ SC/IM CPT-4: 35599Ytyzrqi 07/10/2013 TRIAMCINOLONE ACET INJ NOS CPT-4: V9941Nukpzqr 07/10/2013 PRESCRIP TRANSMIT VIA ERX SY CPT-4: U9081Ujnejub 07/10/2013 47874 EST. PATIENT, LEVEL III CPT-4: 69410Vhufwep 06/03/2013 PRESCRIP TRANSMIT VIA ERX SY CPT-4: N9143Okzndcp 06/03/2013 PRESCRIP TRANSMIT VIA ERX SY CPT-4: Q8577Gkvdfzc 05/07/2013 ROUTINE VENIPUNCTURE CPT-4: 14555Mgelurs 04/30/2013 ROUTINE VENIPUNCTURE CPT-4: 80937Cbmotzu 11/29/2012 TRIAMCINOLONE ACET INJ NOS CPT-4: L0282Fijorfq 09/24/2012 THER/PROPH/DIAG INJ SC/IM CPT-4: 88648Jhzozbw 09/24/2012 URINALYSIS NONAUTO W/O SCOPE CPT-4: 60330Kmtkgbx 09/24/2012 PRESCRIP TRANSMIT VIA ERX SY CPT-4: N2518Kfxikla 09/24/2012 PRESCRIP TRANSMIT VIA ERX SY CPT-4: A0284Gesamkj 09/10/2012 PRESCRIP TRANSMIT VIA ERX SY CPT-4: R8279Msiglud 08/08/2012 ROUTINE VENIPUNCTURE CPT-4: 15119Quabtac 08/07/2012 ROUTINE VENIPUNCTURE CPT-4: 84830Bhclmze 02/16/2012 URINALYSIS NONAUTO W/O SCOPE CPT-4: 36747Ljckpxi 02/15/2012 ROCEPHIN, PER 250 MG CPT-4: U4293Vmmsjiz 02/15/2012 PRESCRIP TRANSMIT VIA ERX SY CPT-4: B7751Zrwmdqx 02/15/2012 ROUTINE VENIPUNCTURE CPT-4: 96280Ulusttc 11/08/2011 ROCEPHIN, PER 250 MG CPT-4: Q8469Zcpoerq 07/14/2011 THER/PROPH/DIAG INJ SC/IM CPT-4: 42614Mflmfsx 07/14/2011 Influenza Virus Vaccine, Split Virus, >3 Yrs, IM CPT-4: 91233Bknopgn 05/23/2011 IMMUNIZATION ADMIN CPT-4: 67443Gvruxtc 05/23/2011 THER/PROPH/DIAG INJ SC/IM CPT-4: 88544Jrdeehk 05/03/2011 ROCEPHIN, PER 250 MG CPT-4: E2616Sxeayql 05/03/2011 TRIAMCINOLONE ACET INJ NOS CPT-4: S8013Cifwvge 05/03/2011 Vital Signs Date Vital 02/20/2017 Blood Pressure 1: 142/80 Code: 8480-6 BMI: 30.9 Code: 07452-3 Heart Rate 1: 75 bpm Height: 4'11" SpO2: 97% Weight: 153 lbs 02/06/2017 Blood Pressure 1: 138/90 Code: 8480-6 BMI: 31.5 Code: 57572-8 Heart Rate 1: 61 bpm Height: 4'11" SpO2: 98% Weight: 156 lbs 12/05/2016 Blood Pressure 1: 122/72 Code: 8480-6 Heart Rate 1: 59 bpm Height: 4'11" SpO2: 98% Weight: 11/28/2016 Blood Pressure 1: 154/86 Code: 8480-6 BMI: 31.3 Code: 93544-4 Heart Rate 1: 64 bpm Height: 4'11" SpO2: 94% Temperature: 36.2 (C) / 97.2 (F) Weight: 155 lbs 11/07/2016 Blood Pressure 1: 128/64 Code: 8480-6 BMI: 31.5 Code: 58677-6 Heart Rate 1: 59 bpm Height: 4'11" SpO2: 97% Weight: 156 lbs 08/15/2016 Blood Pressure 1: 110/62 Code: 8480-6 BMI: 31.5 Code: 55083-9 Heart Rate 1: 76 bpm Height: 4'11" SpO2: 97% Weight: 156 lbs 06/07/2016 Blood Pressure 1: 120/80 Code: 8480-6 BMI: 32.9 Code: 24923-9 Heart Rate 1: 63 bpm Height: 4'11" SpO2: 93% Temperature: 36.5 (C) / 97.7 (F) Weight: 163 lbs 03/15/2016 Blood Pressure 1: 90/42 Code: 8480-6 Heart Rate 1: 65 bpm SpO2: 94% 03/14/2016 Blood Pressure 1: 188/110 Code: 8480-6 Heart Rate 1: 68 bpm SpO2: 96% 02/22/2016 Blood Pressure 1: 158/80 Code: 8480-6 BMI: 32.7 Code: 10593-2 Heart Rate 1: 71 bpm Height: 4'11" SpO2: 95% Weight: 162 lbs 12/07/2015 Blood Pressure 1: 140/88 Code: 8480-6 BMI: 32.9 Code: 70839-6 Heart Rate 1: 99 bpm Height: 4'11" SpO2: 94% Temperature: 35.9 (C) / 96.6 (F) Weight: 163 lbs 11/24/2015 Blood Pressure 1: 144/78 Code: 8480-6 BMI: 33.7 Code: 31712-3 Heart Rate 1: 60 bpm Height: 4'11" SpO2: 98% Temperature: 36.6 (C) / 97.9 (F) Weight: 167 lbs 08/27/2015 Blood Pressure 1: 164/82 Code: 8480-6 BMI: 32.3 Code: 92113-2 Heart Rate 1: 60 bpm Height: 4'11" SpO2: 93% Weight: 160 lbs 08/10/2015 Blood Pressure 1: 130/60 Code: 8480-6 BMI: 32.5 Code: 67462-2 Heart Rate 1: 64 bpm Height: 4'11" SpO2: 97% Weight: 161 lbs 07/28/2015 Blood Pressure 1: 124/68 Code: 8480-6 BMI: 32.5 Code: 28663-8 Heart Rate 1: 69 bpm Height: 4'11" SpO2: 97% Weight: 161 lbs 06/11/2015 Blood Pressure 1: 148/80 Code: 8480-6 BMI: 32.9 Code: 59681-2 Heart Rate 1: 70 bpm Height: 4'11" SpO2: 94% Weight: 163 lbs 03/19/2015 Blood Pressure 1: 150/102 Code: 8480-6 Blood Pressure 2: 152/92 Code: 8480-6 BMI: 32.5 Code: 83380-3 Heart Rate 1: 71 bpm Height: 4'11" SpO2: 96% Weight: 161 lbs 01/07/2015 Blood Pressure 1: 126/84 Code: 8480-6 Heart Rate 1: 80 bpm Height: 4'11" 09/23/2014 Blood Pressure 1: 112/72 Code: 8480-6 BMI: 33.9 Code: 22748-3 Heart Rate 1: 72 bpm Height: 4'11" Weight: 168 lbs 08/05/2014 Blood Pressure 1: 140/86 Code: 8480-6 BMI: 33.3 Code: 74125-4 Height: 4'11" Weight: 165 lbs 06/23/2014 Blood Pressure 1: 132/70 Code: 8480-6 BMI: 32.9 Code: 65599-0 Heart Rate 1: 58 bpm Height: 4'11" Temperature: 36.0 (C) / 96.8 (F) Weight: 163 lbs 06/05/2014 Blood Pressure 1: 121/85 Code: 8480-6 BMI: 34.3 Code: 48819-8 Height: 4'11" Weight: 170 lbs 04/03/2014 Blood Pressure 1: 128/80 Code: 8480-6 Heart Rate 1: 88 bpm Weight: 167 lbs 03/07/2014 Blood Pressure 1: 122/82 Code: 8480-6 BMI: 33.9 Code: 92770-2 Heart Rate 1: 68 bpm Height: 4'11" Weight: 168 lbs 11/21/2013 Blood Pressure 1: 100/58 Code: 8480-6 BMI: 33.7 Code: 56382-8 Heart Rate 1: 64 bpm Height: 4'11" Weight: 167 lbs 09/24/2013 Blood Pressure 1: 148/88 Code: 8480-6 Heart Rate 1: 68 bpm Weight: 09/19/2013 Blood Pressure 1: 120/80 Code: 8480-6 BMI: 33.9 Code: 63639-8 Heart Rate 1: 80 bpm Height: 4'11" Temperature: 36.9 (C) / 98.5 (F) Weight: 168 lbs 08/05/2013 Blood Pressure 1: 128/80 Code: 8480-6 BMI: 34.3 Code: 00289-1 Heart Rate 1: 64 bpm Height: 4'11" Temperature: 36.2 (C) / 97.2 (F) Weight: 170 lbs 07/10/2013 Blood Pressure 1: 120/84 Code: 8480-6 BMI: 36.0 Code: 21302-3 Heart Rate 1: 90 bpm Height: 4'11" SpO2: 97% Temperature: 36.8 (C) / 98.2 (F) Weight: 178 lbs 06/03/2013 Blood Pressure 1: 136/94 Code: 8480-6 BMI: 34.7 Code: 45533-4 Heart Rate 1: 68 bpm Height: 4'11" Temperature: 36.7 (C) / 98.0 (F) Weight: 172 lbs 05/13/2013 Blood Pressure 1: 132/90 Code: 8480-6 Heart Rate 1: 68 bpm 05/07/2013 Blood Pressure 1: 168/100 Code: 8480-6 BMI: 34.3 Code: 26965-6 Heart Rate 1: 76 bpm Height: 4'11" Weight: 170 lbs 12/03/2012 Blood Pressure 1: 142/78 Code: 8480-6 BMI: 33.5 Code: 35849-1 Heart Rate 1: 76 bpm Height: 4'11" Weight: 166 lbs 09/24/2012 Blood Pressure 1: 116/70 Code: 8480-6 Heart Rate 1: 68 bpm Respiratory Rate: 16 bpm Temperature: 36.9 (C) / 98.4 (F) Weight: 162 lbs 09/10/2012 Blood Pressure 1: 116/80 Code: 8480-6 BMI: 33.7 Code: 00599-3 Heart Rate 1: 76 bpm Height: 4'11" [...] 1: 149/85 Code: 8480-6 BMI: 32.9 Code: 07988-3 Heart Rate 1: 79 bpm Height: 4'11" Weight: 164 lbs 05/03/2011 Blood Pressure 1: 122/79 Code: 8480-6 BMI: 30.8 Code: 86616-9 Heart Rate 1: 72 bpm Height: 5'1" Weight: 163 lbs 04/25/2011 Blood Pressure 1: 137/84 Code: 8480-6 BMI: 31.0 Code: 04477-1 Heart Rate 1: 63 bpm Height: 5'1" Respiratory Rate: 20 bpm Weight: 164 lbs Functional Status No Functional Status data History of Present Illness Symptom Name Status Result Effective Date Notes abdominal pain Location in the [facility] 02/20/2017 [...] surg in december. then took trip to [facility] to see mother and has had [...] data Encounters Encounter Performer Location Codes Date [id number] EST. PATIENT, LEVEL IV Diagnosis: Epigastric pain[ICD10: R10.13] Diagnosis: Left upper quadrant pain[ICD10: R10.12] Diagnosis: Left lower quadrant pain[ICD10: R10.32] Isabelle Goldman MD, [facility] CPT-4: 38518 02/20/2017 ([id number]) 75942 EST. PATIENT, LEVEL IV Diagnosis: Generalized anxiety disorder[ICD10: F41.1] Diagnosis: Major depressive disorder, recurrent, moderate[ICD10: F33.1] Diagnosis: Left upper quadrant pain[ICD10: R10.12] Diagnosis: Epigastric pain[ICD10: R10.13] Diagnosis: Actinic keratosis[ICD10: L57.0] Melba Goldman MD, [facility] CPT-4: 68944 02/06/2017 ([id number]) 24922 EST. PATIENT, LEVEL III Diagnosis: Actinic keratosis[ICD10: L57.0] Diagnosis: Major depressive disorder, recurrent, moderate[ICD10: F33.1] Melba Goldman MD, [facility] CPT-4: 50476 12/05/2016 ([id number]) 25582 EST. PATIENT, LEVEL III Diagnosis: Acute recurrent maxillary sinusitis[ICD10: J01.01] Diagnosis: Dysuria[ICD10: R30.0] Shahida Goldman MD, [facility] CPT-4: 78208 11/28/2016 [id number] EST. PATIENT, LEVEL IV Diagnosis: Other acute sinusitis[ICD10: J01.80] Diagnosis: Acute laryngopharyngitis[ICD10: J06.0] Diagnosis: Other allergic rhinitis[ICD10: J30.89] Isabelle Goldman MD, [facility] CPT- 4: 92334 08/15/2016 ([id number]) 55463 EST. PATIENT, LEVEL III Diagnosis: Acute recurrent maxillary sinusitis[ICD10: J01.01] Diagnosis: Low back pain[ICD10: M54.5] Shahida Goldman MD, [facility] CPT-4: 81914 06/07/2016 ([id number]) Miscellaneous no charge Diagnosis: Essential (primary) hypertension[ICD10: I10] Shahida Goldman MD, [facility] CPT-4: 37044 03/15/2016 [id number] EST. PATIENT, LEVEL IV Diagnosis: Essential (primary) hypertension[ICD10: I10] Diagnosis: Headache[ICD10: R51] Diagnosis: Generalized anxiety disorder[ICD10: F41.1] Shahida Goldman MD, [facility] CPT-4: 95402 03/14/2016 [id number] EST. PATIENT, LEVEL III Diagnosis: Laceration without foreign body, left lower leg, initial encounter[ICD10: S81.812A] Isabelle Goldman MD, [facility] CPT-4: 31721 02/22/2016 ([id number]) 06686 EST. PATIENT, LEVEL III Diagnosis: Acute recurrent maxillary sinusitis[ICD10: J01.01] Diagnosis: Cough[ICD10: R05] Diagnosis: Allergic rhinitis due to pollen[ICD10: J30.1] Shahida Goldman MD, [facility] CPT-4: 37463 12/07/2015 ([id number]) 59039 EST. PATIENT, LEVEL IV Diagnosis: Essential (primary) hypertension[ICD10: I10] Diagnosis: Acute recurrent maxillary sinusitis[ICD10: J01.01] Diagnosis: Generalized anxiety disorder[ICD10: F41.1] Diagnosis: Cervicalgia[ICD10: M54.2] Diagnosis: Generalized intra-abdominal and pelvic swelling, mass and lump[ICD10: R19.07] Melba Goldman MD, [facility] CPT-4: 22024 11/24/2015 [id number] EST. PATIENT, LEVEL III Diagnosis: Other migraine, intractable, without status migrainosus[ICD10: G43.819] Isabelle Goldman MD, [facility] CPT-4: 02986 08/27/2015 75046 EST. PATIENT, LEVEL III Diagnosis: Acute recurrent maxillary sinusitis[ICD10: J01.01] Diagnosis: Candidal stomatitis[ICD10: B37.0] Diagnosis: Acute laryngopharyngitis[ICD10: J06.0] Isabelle Goldman MD, [facility] CPT- 4: 75747 08/10/2015 [id number] EST. PATIENT, LEVEL III Diagnosis: Superficial foreign body of left hand, initial encounter[ICD10: S60.552A] Melba Goldman MD, [facility] CPT-4: 62190 07/28/2015 ([id number]) 83277 EST. PATIENT, LEVEL III Diagnosis: Essential (primary) hypertension[ICD10: I10] Diagnosis: Tinea cruris[ICD10: B35.6] Diagnosis: Abnormal levels of other serum enzymes[ICD10: R74.8] Shahida Goldman MD, [facility] CPT-4: 76678 06/11/2015 ([id number]) 25132 EST. PATIENT, LEVEL IV Diagnosis: ESSENTIAL HYPERTENSION[ICD9: 401.9] Diagnosis: Hypothyroid[ICD9: 244.9] Diagnosis: ALLERGIC RHINITIS[ICD9: 477.9] Diagnosis: Anxiety[ICD9: 300.00] Diagnosis: Sleep apnea[ICD9: 780.57] Shahida Goldman MD, [facility] CPT-4: 92686 03/19/2015 ([id number]) 29145 EST. PATIENT, LEVEL III Diagnosis: ACUTE SINUSITIS[ICD9: 461.9] Celi Goldman MD, [facility] CPT-4: 04642 01/07/2015 ([id number]) 88873 EST. PATIENT, LEVEL III Diagnosis: Conjunctivitis[ICD9: 372.30] Shahida Goldman MD, [facility] CPT-4: 44290 09/23/2014 [id number] EST. PATIENT, LEVEL II Diagnosis: Noninfected skin tear of leg[ICD9: 891.0] Shahida Goldman MD, [facility] CPT-4: 93532 08/05/2014 ([id number]) 27796 EST. PATIENT, LEVEL III Diagnosis: Chronic maxillary sinusitis[ICD9: 473.0] Shahida Goldman MD, [facility] CPT-4: 92728 06/23/2014 07279 EST. PATIENT, LEVEL II Diagnosis: Headache[ICD9: 784.0] Shahida Goldman MD, [facility] CPT-4: 02737 06/05/2014 ([id number]) 38341 EST. PATIENT, LEVEL III Diagnosis: Abrasion of right leg[ICD9: 916.0] Diagnosis: Headache[ICD9: 784.0] Diagnosis: ALLERGIC RHINITIS[ICD9: 477.9] Shahida Goldman MD, [facility] CPT-4: 88079 04/03/2014 66789 EST. PATIENT, LEVEL II Diagnosis: Tinea corporis[ICD9: 110.5] Diagnosis: Exposure to scabies[ICD9: V01.89] Shahida Goldman MD, [facility] CPT- 4: 08047 03/07/2014 ([id number]) 43176 EST. PATIENT, LEVEL III Diagnosis: ESSENTIAL HYPERTENSION[SNOMED: 79155554] Diagnosis: OSTEOARTH NOS-UNSPEC[ICD9: 715.90] Diagnosis: Lumbago[ICD9: 724.2] Diagnosis: Cervicalgia[ICD9: 723.1] Shahida Goldman MD, [facility] CPT-4: 69483 11/21/2013 ([id number]) 91570 EST. PATIENT, LEVEL III Diagnosis: DEPRESSIVE DISORDER NEC[ICD9: 311] Diagnosis: Paronychia[ICD9: 681.9] Melba Goldman MD, [facility] CPT-4: 14633 09/24/2013 ([id number]) 29363 EST. PATIENT, LEVEL III Diagnosis: Paronychia[ICD9: 681.9] Diagnosis: Cellulitis[ICD9: 682.9] Melba Goldman MD, [facility] CPT-4: 52031 09/19/2013 ([id number]) 34095 EST. PATIENT, LEVEL III Diagnosis: Conjunctivitis[ICD9: 372.30] Diagnosis: Thrush[ICD9: 112.0] Shahida Glodman MD, [facility] CPT-4: 96438 08/05/2013 ([id number]) 89968 EST. PATIENT, LEVEL III Diagnosis: ACUTE MAXILLARY SINUSITIS[ICD9: 461.0] Diagnosis: COUGH[ICD9: 786.2] Diagnosis: Insomnia[ICD9: 780.52] Diagnosis: ESOPHAGEAL REFLUX[ICD9: 530.81] Melba Goldman MD, [facility] CPT-4: 46598 07/10/2013 ([id number]) Miscellaneous no charge Diagnosis: ESSENTIAL HYPERTENSION[SNOMED: 27687763] Melba Goldman MD, [facility] CPT-4: 23674 05/13/2013 ([id number]) 68850 EST. PATIENT, LEVEL IV Diagnosis: ESSENTIAL HYPERTENSION[SNOMED: 24904804] Diagnosis: HYPOTHYROIDISM[ICD9: 244.9] Diagnosis: OSTEOARTH NOS-UNSPEC[ICD9: 715.90] Melba Goldman MD, [facility] CPT- 4: 05882 05/07/2013 ([id number]) 21804 EST. PATIENT, LEVEL IV Diagnosis: Osteoarthritis[ICD9: 715.90] Diagnosis: Knee pain, bilateral[ICD9: 719.46] Diagnosis: Hip pain[ICD9: 719.45] Melba Goldman MD [facility] CPT-4: 54607 12/03/2012 ([id number]) 06999 EST. PATIENT, LEVEL III Diagnosis: Thrush[ICD9: 112.0] Melba Goldman MD [facility] CPT-4: 85235 09/24/2012 ([id number]) 73044 EST. PATIENT, LEVEL IV Diagnosis: ESSENTIAL HYPERTENSION[SNOMED: 67265405] Diagnosis: Thrush[ICD9: 112.0] Diagnosis: Sleep apnea[ICD9: 780.57] Melba Goldman MD [facility] CPT-4: 24878 09/10/2012 ([id number]) 22893 EST. PATIENT, LEVEL IV Diagnosis: Esophageal reflux[ICD9: 530.81] Diagnosis: Hypothyroid[ICD9: 244.9] Diagnosis: JOINT PAIN-MULT JOINTS[ICD9: 719.49] Diagnosis: ALLERGIC RHINITIS[ICD9: 477.9] Melba Goldman MD [facility] CPT-4: 41593 08/08/2012 ([id number]) 46676 EST. PATIENT, LEVEL IV Diagnosis: Urinary frequency[ICD9: 788.41] Diagnosis: EDEMA[ICD9: 782.3] Diagnosis: HYPOTHYROIDISM[ICD9: 244.9] Diagnosis: Fatigue[ICD9: 780.79] Melba Goldman MD [facility] CPT-4: 10121 02/15/2012 ([id number]) 01115 EST. PATIENT, LEVEL IV Diagnosis: Abdominal pain[ICD9: 789.00] Diagnosis: Fatigue[ICD9: 780.79] Diagnosis: Nausea[ICD9: 787.02] Melba Goldman MD [facility] CPT-4: 11133 11/10/2011 [id number] EST. PATIENT, LEVEL IV Diagnosis: ESSENTIAL HYPERTENSION[SNOMED: 49388854] Diagnosis: DIARRHEA[ICD9: 787.91] Diagnosis: DEPRESSIVE DISORDER NEC[ICD9: 311] Diagnosis: Irritable bowel disease[ICD9: 564.1] Melba Goldman MD, [facility] CPT- 4: 74653 08/01/2011 04078 EST. PATIENT, LEVEL III Diagnosis: ACUTE SINUSITIS[ICD9: 461.9] Diagnosis: Cough[ICD9: 786.2] Shahida Goldman MD, [facility] CPT-4: 85541 07/14/2011 97083 EST. PATIENT, LEVEL IV Diagnosis: VACCIN FOR INFLUENZA[ICD9: V04.81] Diagnosis: ESSENTIAL HYPERTENSION[SNOMED: 81068557] Diagnosis: GENERALIZED ANXIETY DISEASE[ICD9: 300.02] Diagnosis: SLEEP DISTURBANCES[ICD9: 780.50] Shahida Goldman MD, [facility] CPT- 4: 66875 05/23/2011 04677 EST. PATIENT, LEVEL III Diagnosis: ACUTE SINUSITIS[ICD9: 461.9] Diagnosis: ALLERGIC RHINITIS[ICD9: 477.9] Diagnosis: Cough[ICD9: 786.2] Shahida Goldman MD, [facility] CPT-4: 90336 05/03/2011 56809 EST. PATIENT, LEVEL IV Diagnosis: ESSENTIAL HYPERTENSION[SNOMED: 89677842] Diagnosis: DEPRESSIVE DISORDER NEC[ICD9: 311] Diagnosis: Fatigue[ICD9: 780.79] Shahida Goldman MD, [facility] CPT-4: 76662 04/25/2011 Plan of Care Planned Activity Notes Codes Status Date Appointment: Shahida Manzo WPtel: [address] [place] [phone] (15 min) Moderate 02/21/2017 Visit Plan: Abdominal [...] improving. 02/20/2017 Appointment: Isabel[facility] [phone] [facility] [place] (30 min) Complex 02/20/2017 Patient Education: Patient [...] use 02/06/2017 App[facility]ment[phone] ([facility] min) Moderate 02/06/2017 Patient Education: Patient [...] this patient. 12/05/2016 Appointment: [phone] [facility] [facility] Procedure 12/05/2016 Patient Education: Patient Medication Summary Completed 12/05/2016 Visit Plan: Sinusitis - Pt has acute infection - pain in face, maxillary region, Pt informed to use decongestant, RX given to patient, sinus rinses also recommended. Call if symptoms do not show improvement.Dysuria-culture urine 11/28/2016 Appointment: Shahida Manzo [facility] [phone] [facility] [phone] (15 min) Moderate 11/28/2016 Patient Education: Patient [...] control. 11/07/2016 Appointment: Isabelle Orozco WPtel: [phone] [facility] [place] [facility] - Annual Wellness Visit 11/07/2016 Patient [...] spray. 08/15/2016 Appointment: Isabelle Orozco WPtel: [phone] [facility] [place] (15 min) Moderate 08/15/2016 Patient Education: Patient [...] use. 06/07/2016 Appointment: Shahida Manzo [facility]Ptel: [phone] [facility] [phone] (10 min) Simple 06/07/2016 Patient Education: Patient [...] office today 03/14/2016 Appointment: Shahida Manzo WPtel: [phone] [phone] (15 min) Moderate 03/14/2016 Patient Education: Patient Medication Summary Completed 03/14/2016 Care Plan: COMPLETE CBC AUTOMATED LOINC : 88251-0 Pending 03/14/2016 Visit Plan: Cellulitis - The patient was instructed in appropriate wound care. The patient was instructed to use the antibiotic ointment as per RX. The patient is to call for any change in symptoms, increase in size of the lesion, increase in pain. 02/22/2016 Appointment: Isabelle Orozco [facility]Ptel: [address] [facility] [place] (15 min) Moderate 02/22/2016 Patient Education: Patient [...] dr. dai 11/24/2015 Appointment: Melba Goldman WPtel: [address] [place] [address] (30 min) [facility] 11/24/2015 Patient Education: Patient Medication Summary Completed 11/24/2015 Patient Education: Obesity Completed 11/24/2015 Patient Education: Hypertension Completed 11/24/2015 Patient Education: .Cervicalgia Neck Pain Completed 11/24/2015 Care Plan: Referral Order SNOMED-CT : [id number] Ordered 11/24/2015 Visit Plan: Acute Migraine - [...] to monitor 06/11/2015 Appointment: Shahida Manzo WPtel: [facility] [phone] (15 min) Moderate 06/11/2015 Patient Education: Patient [...] OFFICE Sleep apnea-patient needs new CPAP-will contact [facility] Pt reports that she uses [...] OFFICE Sleep apnea-patient needs new CPAP-will contact [facility] patient 03/19/2015 Visit Plan: Hypertension - [...] OFFICE Sleep apnea-patient needs new CPAP-will contact [facility] Pt reports that she uses [...] Keep areas dryExposure to scabies-RX sent to [facility]. 03/07/2014 Appointment: Melba Goldman [facility]el[facility] [address] [facility] rash 03/07/2014 Patient Education: Patient Medication Summary [...] about change in blood pressure readings at home.Hfwlnfm-ugfqzbeixzw-qrmchaat duragesic patch-appt with Dr Ortiz for pain management 11/21/2013 Appointment: Shahida Manzo WPtel: [phone] [facility] [phone] Follow up 11/21/2013 Patient Education: Patient Medication Summary Completed 11/21/2013 Patient Education: Hypertension Completed 11/21/2013 Patient Education: .Cervicalgia Neck Pain Completed 11/21/2013 Appointment: Melba Goldman WPtel: [facility] Other 11/19/2013 Appointment: Melba Goldman WPtel: [address] [place], [place] [phone] Follow up 11/06/2013 Appointment: Melba Goldman WPtel: [address] [place] [address] Lab Draw 10/15/2013 Patient Education: Patient Medication [...] AT BEDTIME 09/24/2013 Appointment: Shahida Manzo WPtel: [phone] [place] [address] Other 09/24/2013 Patient Education: Patient Medication Summary Completed 09/24/2013 Visit Plan: Paronychia/Cellulitis - continue with oral antibiotics as previously directed, return to clinic as previously directed, call for acute change in symptoms, worsening redness, warmth, discharge. 09/19/2013 Appointment: Melba Goldman WPtel: [address] [place], [place] [phone] Other 09/19/2013 Patient Education: Patient Medication Summary Completed 09/19/2013 Visit Plan: Conjunctivitis - rx for eye drops/lube sent electronically to the patient's pharmacy. The patient has been instructed to cleanse affected eye with warm washcloth, then place medication into affected eye four times daily.Thrush- refill nystatin-call if symptoms do not resolve 08/05/2013 Appointment: Shahida Manzo WPtel: [phone] [phone] [place] [address] 08/05/2013 Patient Education: Patient Medication Summary Completed [...] show improvement. 06/03/2013 Appointment: [facility] Goldman [facility]el: [phone] Follow [facility] 06/03/2013 Patient Education: Patient Medication Summary Completed 06/03/2013 Patient Education: Hypertension Completed 06/03/2013 Appointment: [facility]el[phone] [facility] [place] Nurse Visit 05/13/2013 Patient Education: Patient [...] control. 05/07/2013 Appointment: [facility] Goldman [facility]el: [phone] [facility] Follow up 05/07/2013 Patient Education: Patient Medication Summary Completed 05/07/2013 Patient Education: Hypertension Completed 05/07/2013 Patient Education: Patient Medication Summary Completed 04/30/2013 Patient Education: Hypertension Completed 04/30/2013 Visit Plan: Arthritis- occasionally uncontrolled symptoms- recommend pt to take antiinflammatory as directed for pain control.Use tylenol for break through pain symptoms. 12/03/2012 Appointment: [facility]ba Goldman [facility]Ptel: [phone] [facility] Follow up 12/03/2012 Patient Education: Patient Medication [...] not resolve 09/24/2012 Appointment: Shahida Manzo WPtel: [phone] [facility] [phone] [place] [address] 09/24/2012 Patient Education: Patient Medication Summary Completed [...] with diflucan 09/10/2012 Appointment: Melba Goldman WPtel: [phone] [facility] Follow up 09/10/2012 Patient Education: Patient Medication [...] pain symptoms. 08/08/2012 Appointment: Shahida Manzo WPtel: [phone] Follow up 08/08/2012 Patient Education: Patient Medication Summary Completed 08/08/2012 Patient Education: Patient Medication Summary Completed 08/07/2012 Patient Education: Hypertension Completed 08/07/2012 Appointment: Melba Goldman WPtel: [address] [place], [place] [phone] Lab Draw 02/16/2012 Patient Education: Patient Medication [...] Needs labs. 02/15/2012 Appointment: Melba Goldman WPtel: [address] [place], [place] [phone] [place] Other 02/15/2012 Patient Education: Patient Medication Summary Completed 02/15/2012 Visit Plan: Abdominal pain - ultrasound tomorrow AMnothing to eat before the ultrasound from 11pm tonight bland diet.Nausea - worse with fatty foods, recommended low fat/bland diet, call if symptoms worsening. 11/10/2011 Appointment: Melba Goldman WPtel: [address] [place], [place] [phone] Other 11/10/2011 Patient Education: Patient Medication Summary [...] stools. 08/01/2011 Appointment: Melba Goldman WPtel: [phone] [facility] Other 08/01/2011 Patient Education: Patient Medication Summary Completed 08/01/2011 Patient Education: High Blood Pressure: Essential Hypertension Completed 08/01/2011 Visit Plan: Sinusitis - Pt has acute infection - pain in face, maxillary region, Pt informed to use decongestant, RX given to patient, sinus rinses also recommended. Call if symptoms do not show improvement. Cough-kishore zurita 07/14/2011 Appointment: Shahida Manzo WPtel: [phone] [facility] [phone] [place] Other 07/14/2011 Patient Education: Patient Medication [...] the office. 05/23/2011 Appointment: Shahida Manzo WPtel: [phone] [place] Other 05/23/2011 Patient Education: Patient [...] cough med 05/03/2011 Appointment: Shahida Manzo WPtel: [address] [place] [phone] [place] Other 05/03/2011 Patient Education: Patient Medication [...] her symptoms. 04/25/2011 Appointment: Shahida Manzo WPtel: [address] [place], [place] [phone] Other 04/25/2011 Patient Education: Patient Medication Summary [...] OFFICE Sleep apnea-patient needs new CPAP-[facility] Pt reports that she uses [...] OFFICE Sleep apnea-patient needs new CPAP-will contact [facility] patient . Skin tear of left and [...] tylenol for break through pain symptoms. . Wound Instructions - Pt was instructed [...] areas dry Exposure to scabies-RX sent to [facility] pharmacy. Edarbi 40mg daily Labs now EKG [...] change in blood pressure readings at home. Arotkzp-gixsvrwvglm-dewfvotc duragesic patch-appt with Dr Ortiz for pain [...] the plan with the nurse practicioner. . Wound Instructions - Pt was instructed [...] for efudex - pt instructed on use TAPER OFF OF CYMBALTA-TAKE EVERY OTHER DAY [...] OFFICE Sleep apnea-patient needs new CPAP-will contact [facility] Pt reports that she uses her CPAP and feels like she gets benefit from use of her CPAP with improved energy. . Hypertension - fairlywell controlled - due [...]
--- OUTSIDE RECORDS SUMMARY | 2019-03-08 13:15 | XMS REPORT | CCD ---
Author Author [facility] Address [address] [place] [address] Phone Care Team Providers Care Strategic Planning Specialist Name Role Phone PP Unavailable CCM Unavailable Summary Purpose Interface Exchange Insurance Providers Payer name Policy type / Coverage type Covered alliance party ID Effective Begin Date Effective End Date [employer] Medicare Part B [id number] Unknown Family history Son Diagnosis Age At Onset Crohn's disease Unknown Brother Diagnosis Age At Onset Cardiovascular disease Unknown Mother Diagnosis Age At Onset Hypertension Unknown Father Diagnosis Age At Onset Cardiovascular disease Unknown Social History Social History Element Codes Description Effective Dates Marital status Unknown 04/22/2011 Number of children Unknown 3 1 son -Crohns 04/22/[address]: 714061204 Nonsmoker 04/22/2011 Allergies, Adverse Reactions, Alerts Allergies, [...] Start Date Stop Date Status Fill Instructions alprazolam 0.25 mg tablet RxNorm: 886716 1 Tablet(s) PO daily as needed 02/23/2017 04/23/2017 Active (Response to an electronic controlled substance refill request - RxReferenceNumber: [id number]) Flagyl 500 mg tablet RxNorm: 994858 1 Tablet(s) PO TID 02/20/2017 03/01/2017 Active promethazine 25 mg tablet RxNorm: 512728 1 Tablet(s) PO TID as needed nausea 02/20/2017 03/01/2017 Active Cipro 500 mg tablet RxNorm: 760990 1 Tablet(s) PO BID 02/20/2017 03/01/2017 Active Flagyl 500 mg tablet RxNorm: 857302 1 Tablet(s) PO TID 02/09/2017 02/15/2017 Inactive Trintellix 10 mg tablet RxNorm: 6427166 1 Tablet(s) PO QAM 02/06/2017 03/07/2017 Active Efudex 5 % topical cream RxNorm: 099672 1 Application TOP BID use on skin spot on nose 02/06/2017 02/15/2017 Inactive Bystolic 10 mg tablet RxNorm: 709580 TAKE ONE TABLET BY MOUTH DAILY 02/03/2017 06/02/2017 Active Imitrex 50 mg tablet RxNorm: 012703 TAKE ONE TABLET BY MOUTH EVERY 8 HOURS NEEDED MAY REPEAT IN 1 HOUR OF INITIAL DOSE. DISCONTINUE FIORICET 12/22/2016 02/19/2017 Inactive Nexium 40 mg capsule,delayed release RxNorm: 285498 TAKE ONE CAPSULE BY MOUTH EVERY DAY 12/21/2016 09/16/2017 Active Lexapro 20 mg tablet RxNorm: 994443 Tablet(s) TAKE ONE TABLET BY MOUTH DAILY 12/05/2016 02/05/2017 Inactive hydrocodone 10 mg-acetaminophen 325 mg tablet RxNorm: 147295 Tablet(s) PO TAKE ONE TO TWO TABLETS BY MOUTH EVERY 6 HOURS NEEDED FOR PAIN 11/28/2016 No Stop Date Active (Appended: Controlled substance eRx refill - RxReferenceNumber: [id number]) Augmentin 875 mg-125 mg tablet RxNorm: 198448 1 Tablet(s) PO BID 11/28/2016 12/04/2016 Inactive ceftriaxone 500 mg solution for injection RxNorm: 1404213 1 Milliliter(s) Inj 11/28/2016 11/28/2016 Inactive prednisone 20 mg tablet RxNorm: 436569 2 Tablet(s) PO daily 11/28/2016 12/02/2016 Inactive Synthroid 100 mcg tablet RxNorm: 172802 1 Tablet(s) PO daily 11/21/2016 05/19/2017 Active Brand name only! trazodone 50 mg tablet RxNorm: 251768 TAKE 1 AND 1/2 TABLETS EVERY NIGHT AT BEDTIME , MAY INCREASE TO 2 TABLETS AT BEDTIME NEEDED 11/21/2016 02/16/2017 Inactive trazodone 50 mg tablet RxNorm: 927606 Tablet(s) TAKE 1 AND 1/2 TABLETS EVERY NIGHT AT BEDTIME , MAY INCREASE TO 2 TABLETS AT BEDTIME NEEDED 11/21/2016 11/20/2016 Inactive Synthroid 100 mcg tablet RxNorm: 577134 1 Tablet(s) PO daily TAKE ONE TABLET BY MOUTH DAILY 11/08/2016 11/20/2016 Inactive ceftriaxone 500 mg solution for injection RxNorm: 4203603 Inj 11/07/2016 11/07/2016 Inactive Kenalog 40 mg/mL suspension for injection RxNorm: 4167964 Milliliter(s) Inj 11/07/2016 11/07/2016 Inactive Xanax 0.25 mg tablet RxNorm: 393698 1 Tablet(s) PO daily as needed 10/31/2016 12/27/2016 Inactive alprazolam 0.25 mg tablet RxNorm: 224072 1 Tablet(s) PO daily as needed 10/21/2016 12/18/2016 Inactive (Response to an electronic controlled substance refill request - RxReferenceNumber: [id number]) hydrochlorothiazide 25 mg tablet RxNorm: 419406 TAKE ONE TABLET BY MOUTH DAILY 10/11/2016 04/08/2017 Active Xanax 0.25 mg tablet RxNorm: 063648 1 Tablet(s) PO daily as needed 08/23/2016 10/19/2016 Inactive Flonase Allergy Relief 50 mcg/actuation nasal spray,suspension RxNorm: 9805407 1 [place] NASAL daily 08/15/2016 No Stop Date Active amoxicillin 500 mg capsule RxNorm: 820251 1 Capsule(s) PO TID 08/15/2016 08/24/2016 Inactive Bystolic 10 mg tablet RxNorm: 432963 TAKE ONE TABLET BY MOUTH DAILY 08/01/2016 12/28/2016 Inactive trazodone 50 mg tablet RxNorm: 671395 TAKE 1 AND 1/2 TABLETS EVERY NIGHT AT BEDTIME , MAY INCREASE TO 2 TABLETS AT BEDTIME NEEDED 07/25/2016 11/11/2016 Inactive alprazolam 0.25 mg tablet RxNorm: 685895 1 Tablet(s) PO daily as needed 07/25/2016 08/22/2016 Inactive (Response to an electronic controlled substance refill request - RxReferenceNumber: [id number]) Imitrex 50 mg tablet RxNorm: 057246 1 Tablet(s) PO Q8 as needed may repeat x1 dose in 1 hour of inital dose. 07/13/2016 No Stop Date Active Lexapro 20 mg tablet RxNorm: 452676 TAKE 1/2 TABLET BY MOUTH DAILY FOR 10 DAYS, THEN TAKE ONE TABLET BY MOUTH DAILY 06/27/2016 11/23/2016 Inactive Synthroid 100 mcg tablet RxNorm: 996978 TAKE ONE TABLET BY MOUTH DAILY 06/20/2016 11/07/2016 Inactive Augmentin 500 mg-125 mg tablet RxNorm: 152795 1 Tablet(s) PO TID 06/07/2016 06/13/2016 Inactive hydrocodone 10 mg-acetaminophen 325 mg tablet RxNorm: 576834 Tablet(s) PO TAKE ONE TO TWO TABLETS BY MOUTH EVERY 6 HOURS NEEDED FOR PAIN 06/07/2016 11/27/2016 Inactive (Appended: Controlled substance eRx refill - RxReferenceNumber: [id number]) hydrochlorothiazide 25 mg tablet RxNorm: 120738 TAKE ONE TABLET BY MOUTH DAILY 03/14/2016 09/09/2016 Inactive Edarbi 40 mg tablet RxNorm: 7139299 1 Tablet(s) PO daily 03/14/2016 06/06/2016 Inactive trazodone 50 mg tablet RxNorm: 110873 Tablet(s) TAKE 1 AND 1/2 TABLET AT BEDTIME. MAY INCREASE TO 2 TABLETS IF NECESSARY 02/25/2016 07/05/2016 Inactive Imitrex 50 mg tablet RxNorm: 119364 1 Tablet(s) PO Q8 as needed may repeat x1 dose in 1 hour of inital dose. 02/25/2016 07/12/2016 Inactive dc fioricet Xanax 0.25 mg tablet RxNorm: 859535 1 Tablet(s) PO daily as needed 02/24/2016 07/21/2016 Inactive mupirocin 2 % topical ointment RxNorm: 463266 1 TOP BID 02/22/2016 No Stop Date Active Bactrim DS 800 mg-160 mg tablet RxNorm: 351919 1 Tablet(s) PO BID 02/22/2016 03/02/2016 Inactive Fioricet 50 mg-325 mg-40 mg tablet RxNorm: 715693 Tablet(s) TAKE ONE TABLET BY MOUTH EVERY 4 HOURS NEEDED FOR headache 02/12/2016 02/24/2016 Inactive (Response to an electronic controlled substance refill request - RxReferenceNumber: [id number]) Fioricet 50 mg-325 mg-40 mg tablet RxNorm: 311161 Tablet(s) TAKE ONE TABLET BY MOUTH EVERY 4 HOURS NEEDED FOR headache 02/12/2016 02/11/2016 Inactive (Response to an electronic controlled substance refill request - RxReferenceNumber: [id number]) Nexium 40 mg capsule,delayed release RxNorm: 652046 TAKE ONE CAPSULE BY MOUTH EVERY DAY 02/01/2016 10/27/2016 Inactive Bystolic 10 mg tablet RxNorm: 163756 Tablet(s) TAKE ONE TABLET BY MOUTH DAILY 01/06/2016 07/03/2016 Inactive Xanax 0.25 mg tablet RxNorm: 531777 1 Tablet(s) PO daily as needed 12/28/2015 02/23/2016 Inactive Levaquin 500 mg tablet RxNorm: 238205 1 Tablet(s) PO daily take a probiotic daily 12/14/2015 02/11/2016 Inactive Levaquin 500 mg tablet RxNorm: 302624 1 Tablet(s) PO daily take a probiotic daily 12/14/2015 12/13/2015 Inactive Phenergan with Codeine Syrup RxNorm: 5-10 Milliliter(s) PO Q6 PRN 12/07/2015 No Stop Date Active prednisone 20 mg tablet RxNorm: 699906 1 Tablet(s) PO BID 12/07/2015 12/13/2015 Inactive Augmentin 875 mg-125 mg tablet RxNorm: 891789 1 Tablet(s) PO BID 12/07/2015 12/13/2015 Inactive ceftriaxone 500 mg solution for injection RxNorm: 8429159 Inj 12/07/2015 12/07/2015 Inactive alprazolam 0.25 mg tablet RxNorm: 719922 1 Tablet(s) PO daily as needed 11/27/2015 12/25/2015 Inactive (Response to an electronic controlled substance refill request - RxReferenceNumber: [id number]) trazodone 50 mg tablet RxNorm: 086385 TAKE 1 AND 1/2 TABLET AT BEDTIME FOR 2 WEEKS, MAY INCREASE TO 2 TABLETS IF NECESSARY AFTER THAT 11/26/2015 02/24/2016 Inactive ceftriaxone 500 mg solution for injection RxNorm: 1145266 Milliliter(s) Inj 11/24/2015 11/24/2015 Inactive prednisone 10 mg tablet RxNorm: 869474 3 Tablet(s) PO daily 11/24/2015 11/28/2015 Inactive cefdinir 300 mg capsule RxNorm: 884717 1 Capsule(s) PO BID 11/24/2015 11/30/2015 Inactive Kenalog 40 mg/mL suspension for injection RxNorm: 6842458 1 Milliliter(s) Inj 11/24/2015 11/24/2015 Inactive Lexapro 20 mg tablet RxNorm: 083130 TAKE 1/2 TABLET BY MOUTH DAILY FOR 10 DAYS, THEN TAKE ONE TABLET BY MOUTH DAILY 11/23/2015 05/20/2016 Inactive Norvasc 10 mg tablet RxNorm: 537330 Tablet(s) PO TAKE ONE TABLET BY MOUTH EVERY DAY 10/26/2015 02/22/2016 Inactive Lipitor 10 mg tablet RxNorm: 804278 Tablet(s) TAKE ONE TABLET BY MOUTH EVERY DAY 10/26/2015 11/06/2016 Inactive hydrochlorothiazide 25 mg tablet RxNorm: 235258 TAKE ONE TABLET BY MOUTH DAILY 10/20/2015 01/17/2016 Inactive alprazolam 0.25 mg tablet RxNorm: 076451 1 Tablet(s) PO daily as needed 08/27/2015 11/22/2015 Inactive (Response to an electronic controlled substance refill request - RxReferenceNumber: [id number]) promethazine 25 mg/mL injection solution RxNorm: 304577 Milliliter(s) Inj 08/27/2015 08/27/2015 Inactive ketorolac 60 mg/2 mL intramuscular solution RxNorm: 164292 Milliliter(s) IM 08/27/2015 08/27/2015 Inactive Lexapro 20 mg tablet RxNorm: 388600 TAKE 1/2 TABLET BY MOUTH DAILY FOR 10 DAYS, THEN TAKE ONE TABLET BY MOUTH DAILY 08/13/2015 11/10/2015 Inactive Flonase 50 mcg/actuation nasal spray,suspension RxNorm: 554268 PLACE 1 SPRAY IN EACH NOSTRIL DAILY 08/13/2015 02/08/2016 Inactive Augmentin 500 mg-125 mg tablet RxNorm: 948420 1 Tablet(s) PO TID 08/10/2015 08/16/2015 Inactive Kenalog 40 mg/mL suspension for injection RxNorm: 6970815 Milliliter(s) Inj 08/10/2015 08/10/2015 Inactive ceftriaxone 500 mg solution for injection RxNorm: 6753357 Inj 08/10/2015 08/10/2015 Inactive nystatin 100,000 unit/mL oral suspension RxNorm: 764877 4 Milliliter(s) PO QID 08/10/2015 08/16/2015 Inactive trazodone 50 mg tablet RxNorm: 829557 TAKE 1 AND 1/2 TABLET AT BEDTIME FOR 2 WEEKS, MAY INCREASE TO 2 TABLETS IF NECESSARY AFTER THAT 07/31/2015 11/25/2015 Inactive ceftriaxone 500 mg solution for injection RxNorm: 2773786 1 Milliliter(s) Inj 07/28/2015 07/28/2015 Inactive Bactrim DS 800 mg-160 mg tablet RxNorm: 834793 1 Tablet(s) PO BID 07/28/2015 08/06/2015 Inactive Bactroban 2 % topical ointment RxNorm: 945944 1 Application TOP BID 07/28/2015 08/06/2015 Inactive Diflucan 150 mg tablet RxNorm: 728623 1 Tablet(s) PO daily 06/11/2015 06/17/2015 Inactive clotrimazole 1 % topical cream RxNorm: 789014 1 Application TOP BID 06/11/2015 07/10/2015 Inactive Bystolic 10 mg tablet RxNorm: 958399 TAKE ONE TABLET BY MOUTH DAILY 06/08/2015 12/04/2015 Inactive alprazolam 0.25 mg tablet RxNorm: 793173 1 Tablet(s) PO daily as needed 06/01/2015 08/25/2015 Inactive (Response to an electronic controlled substance refill request - RxReferenceNumber: [id number]) Fioricet 50 mg-325 mg-40 mg tablet RxNorm: 913418 Tablet(s) TAKE ONE TABLET BY MOUTH EVERY 4 HOURS NEEDED FOR headache 05/28/2015 06/08/2015 Inactive (Response to an electronic controlled substance refill request - RxReferenceNumber: [id number]) trazodone 50 mg tablet RxNorm: 289096 TAKE 1 AND 1/2 TABLET AT BEDTIME FOR 2 WEEKS, MAY INCREASE TO 2 TABLETS IF NECESSARY AFTER THAT 05/25/2015 08/22/2015 Inactive trazodone 50 mg tablet RxNorm: 166678 TAKE 1 AND 1/2 TABLET AT BEDTIME FOR 2 WEEKS, MAY INCREASE TO 2 TABLETS IF NECESSARY AFTER THAT 05/25/2015 05/24/2015 Inactive Synthroid 100 mcg tablet RxNorm: 924470 TAKE ONE TABLET BY MOUTH DAILY 04/23/2015 01/17/2016 Inactive Lipitor 10 mg tablet RxNorm: 271616 TAKE ONE TABLET BY MOUTH EVERY DAY 04/23/2015 10/25/2015 Inactive Kenalog 40 mg/mL suspension for injection RxNorm: 3338498 Milliliter(s) Inj 03/19/2015 03/19/2015 Inactive Lexapro 20 mg tablet RxNorm: 577442 1 Tablet(s) PO daily 03/19/2015 07/16/2015 Inactive 1/2 tab daily x 10 days then 1 tab daily hydrocodone 10 mg-acetaminophen 325 mg tablet RxNorm: 740046 Tablet(s) PO TAKE ONE TO TWO TABLETS BY MOUTH EVERY 6 HOURS NEEDED FOR PAIN 03/19/2015 06/06/2016 Inactive (Appended: Controlled substance eRx refill - RxReferenceNumber: [id number]) Carafate 1 gram tablet RxNorm: 732173 1 Tablet(s) PO AC & HS 03/19/2015 06/16/2015 Inactive dissolve in water and take as a slurry hydrochlorothiazide 25 mg tablet RxNorm: 847837 1 Tablet(s) PO daily 03/12/2015 09/07/2015 Inactive Nexium 40 mg capsule,delayed release RxNorm: 641728 TAKE ONE CAPSULE BY MOUTH EVERY DAY 02/26/2015 12/22/2015 Inactive Cymbalta 60 mg capsule,delayed release RxNorm: 652220 TAKE ONE CAPSULE BY MOUTH TWICE A DAY 02/23/2015 03/18/2015 Inactive alprazolam 0.25 mg tablet RxNorm: 788582 1 Tablet(s) PO daily as needed 02/11/2015 05/10/2015 Inactive (Response to an electronic controlled substance refill request - RxReferenceNumber: [id number]) trazodone 50 mg tablet RxNorm: 043061 TAKE 1 AND 1/2 TABLET AT BEDTIME FOR 2 WEEKS, MAY INCREASE TO 2 TABLETS IF NECESSARY AFTER THAT 01/27/2015 05/24/2015 Inactive Augmentin 500 mg-125 mg tablet RxNorm: 721330 1 Tablet(s) PO TID 01/07/2015 01/13/2015 Inactive gentamicin 0.3 % eye drops RxNorm: 740049 3 Drop(s) OPH QID 01/07/2015 01/13/2015 Inactive [AttnRPh: Saving apply/adjudicate RxGRP:[id number] RxBIN:[id number] RxPCN: ID#:[id number]] scopolamine 1.5 mg transdermal 72 hour patch RxNorm: 189775 1 Patch TD q72 hours 01/07/2015 11/23/2015 Inactive Synthroid 100 mcg tablet RxNorm: 231294 TAKE ONE TABLET BY MOUTH ONCE A DAY 01/06/2015 04/22/2015 Inactive nystatin 100,000 unit/gram topical powder RxNorm: 014304 APPLY TOPICALLY TWO TIMES A DAY 12/18/2014 03/17/2015 Inactive alprazolam 0.25 mg tablet RxNorm: 481232 TAKE ONE TABLET BY MOUTH DAILY NEEDED 10/30/2014 11/28/2014 Inactive (Response to an electronic controlled substance refill request - RxReferenceNumber: [id number]) alprazolam 0.25 mg tablet RxNorm: 394308 Tablet(s) TAKE ONE TABLET BY MOUTH DAILY 10/30/2014 10/29/2014 Inactive (Response to an electronic controlled substance refill request - RxReferenceNumber: [id number]) Lipitor 10 mg tablet RxNorm: 804514 TAKE ONE TABLET BY MOUTH EVERY DAY 10/30/2014 02/26/2015 Inactive alprazolam 0.25 mg tablet RxNorm: 043214 TAKE ONE TABLET BY MOUTH DAILY 10/07/2014 10/29/2014 Inactive (Response to an electronic controlled substance refill request - RxReferenceNumber: [id number]) alprazolam 0.25 mg tablet RxNorm: 207503 TAKE ONE TABLET BY MOUTH DAILY 10/06/2014 10/07/2014 Inactive (Response to an electronic controlled substance refill request - RxReferenceNumber: [id number]) alprazolam 0.25 mg tablet RxNorm: 755077 Tablet(s) TAKE ONE TABLET BY MOUTH EVERY DAY NEEDED 09/30/2014 10/06/2014 Inactive (Response to an electronic controlled substance refill request - RxReferenceNumber: [id number]) Fioricet 50 mg-325 mg-40 mg tablet RxNorm: 107966 Tablet(s) TAKE ONE TABLET BY MOUTH EVERY 4 HOURS NEEDED FOR headache 09/29/2014 10/12/2014 Inactive (Response to an electronic controlled substance refill request - RxReferenceNumber: [id number]) Bystolic 10 mg tablet RxNorm: 386052 1 Tablet(s) PO daily TAKE ONE TABLET BY MOUTH EVERY DAY 09/29/2014 04/26/2015 Inactive Bystolic 5 mg tablet RxNorm: 276598 TAKE 1 AND 1/2 TABLETS ONCE DAILY 09/24/2014 09/23/2014 Inactive Bystolic 5 mg tablet RxNorm: 157159 Tablet(s) TAKE 1 AND 1/2 TABLETS ONCE DAILY 09/24/2014 09/18/2015 Inactive gentamicin 0.3 % eye drops RxNorm: 019580 3 Drop(s) OPH QID 09/23/2014 09/29/2014 Inactive trazodone 50 mg tablet RxNorm: 821671 TAKE 1 AND 1/2 TABLET AT BEDTIME FOR 2 WEEKS, MAY INCREASE TO 2 TABLETS IF NECESSARY AFTER THAT 09/22/2014 01/26/2015 Inactive Fioricet 50 mg-325 mg-40 mg tablet RxNorm: 721073 TAKE ONE TABLET BY MOUTH EVERY 4 HOURS NEEDED FOR PAIN 09/17/2014 09/28/2014 Inactive (Response to an electronic controlled substance refill request - RxReferenceNumber: [id number]) Duragesic 50 mcg/hr transdermal patch RxNorm: 741918 1 TD q72 hours 08/07/2014 01/06/2015 Inactive [SAVINGS FOR UNINSURED PATIENTS -- BIN:[id number], PCN: ASPROD1, Group: [id number], ID# [id number], Process claim through [employer], for questions: . THIS IS NOT INSURANCE.] alprazolam 0.25 mg tablet RxNorm: 682037 TAKE ONE TABLET BY MOUTH EVERY DAY NEEDED 07/31/2014 08/29/2014 Inactive (Response to an electronic controlled substance refill request - RxReferenceNumber: [id number]) alprazolam 0.25 mg tablet RxNorm: 742531 1 Tablet(s) PO daily as needed TAKE ONE TABLET BY MOUTH EVERY DAY NEEDED 07/30/2014 08/01/2014 Inactive (Response to an electronic controlled substance refill request - RxReferenceNumber: [id number]) Diflucan 150 mg tablet RxNorm: 280282 1 Tablet(s) PO daily 06/25/2014 07/01/2014 Inactive [SAVINGS FOR UNINSURED PATIENTS -- BIN:308779, PCN: ASPROD1, Group: [id number], ID# [id number], Process claim through [employer], for questions: . THIS IS NOT INSURANCE.] Kenalog 40 mg/mL suspension for injection RxNorm: 2595112 Milliliter(s) Inj 06/23/2014 06/23/2014 Inactive [SAVINGS FOR UNINSURED PATIENTS -- BIN:227581, PCN: ASPROD1, Group: [id number], ID# [id number], Process claim through [employer], for questions: . THIS IS NOT INSURANCE.] ceftriaxone 500 mg solution for injection RxNorm: 442324 Inj 06/23/2014 06/23/2014 Inactive [SAVINGS FOR UNINSURED PATIENTS -- BIN:066415, PCN: ASPROD1, Group: [id number], ID# [id number], Process claim through [employer], for questions: . THIS IS NOT INSURANCE.] Levaquin 500 mg tablet RxNorm: 319816 1 Tablet(s) PO daily 06/23/2014 07/13/2014 Inactive [SAVINGS FOR UNINSURED PATIENTS -- BIN:547213, PCN: ASPROD1, Group: [id number], ID# [id number], Process claim through [employer], for questions: . THIS IS NOT INSURANCE.] Duragesic 50 mcg/hr transdermal patch RxNorm: 076961 1 TD q72 hours 06/05/2014 08/06/2014 Inactive [SAVINGS FOR UNINSURED PATIENTS -- BIN:775571, PCN: ASPROD1, Group: [id number], ID# [id number], Process claim through [facility], for questions: . THIS IS NOT INSURANCE.] alprazolam 0.25 mg tablet RxNorm: 736270 1 Tablet(s) PO daily as needed TAKE ONE TABLET BY MOUTH EVERY DAY NEEDED 06/02/2014 07/29/2014 Inactive (Response to an electronic controlled substance refill request - RxReferenceNumber: [id number]) nystatin 100,000 unit/gram topical powder RxNorm: 133263 APPLY TO AFFECTED AREA(S) TWO TIMES A DAY 05/01/2014 06/14/2014 Inactive hydrochlorothiazide 25 mg tablet RxNorm: 991326 TAKE ONE TABLET BY MOUTH EVERY DAY MUST CALL MD FOR APPOINTMENT 04/24/2014 10/20/2014 Inactive alprazolam 0.25 mg tablet RxNorm: 794913 Tablet(s) TAKE ONE TABLET BY MOUTH EVERY DAY NEEDED 04/16/2014 06/02/2014 Inactive (Response to an electronic controlled substance refill request - RxReferenceNumber: [id number]) alprazolam 0.25 mg tablet RxNorm: 189614 TAKE ONE TABLET BY MOUTH EVERY DAY NEEDED 04/16/2014 05/15/2014 Inactive (Response to an electronic controlled substance refill request - RxReferenceNumber: [id number]) alprazolam 0.25 mg tablet RxNorm: 691038 TAKE ONE TABLET BY MOUTH EVERY DAY NEEDED 04/16/2014 05/15/2014 Inactive (Response to an electronic controlled substance refill request - RxReferenceNumber: [id number]) alprazolam 0.25 mg tablet RxNorm: 995334 TAKE ONE TABLET BY MOUTH EVERY DAY NEEDED 04/14/2014 04/16/2014 Inactive (Response to an electronic controlled substance refill request - RxReferenceNumber: [id number]) Lipitor 10 mg tablet RxNorm: 560764 TAKE ONE TABLET BY MOUTH EVERY DAY 04/14/2014 09/10/2014 Inactive alprazolam 0.25 mg tablet RxNorm: 249711 TAKE ONE TABLET BY MOUTH EVERY DAY NEEDED 04/14/2014 04/14/2014 Inactive (Response to an electronic controlled substance refill request - RxReferenceNumber: [id number]) alprazolam 0.25 mg tablet RxNorm: 905890 TAKE ONE TABLET BY MOUTH EVERY DAY NEEDED 04/14/2014 04/15/2014 Inactive (Response to an electronic controlled substance refill request - RxReferenceNumber: [id number]) alprazolam 0.25 mg tablet RxNorm: 551661 TAKE ONE TABLET BY MOUTH EVERY DAY NEEDED 04/14/2014 04/14/2014 Inactive (Response to an electronic controlled substance refill request - RxReferenceNumber: [id number]) nystatin 100,000 unit/gram topical powder RxNorm: 275564 1 Application TOP BID 04/03/2014 07/01/2014 Inactive [SAVINGS FOR UNINSURED PATIENTS -- BIN:702449, PCN: ASPROD1, Group: [id number], ID# [id number], Process claim through [facility], for questions: . THIS IS NOT INSURANCE.] Keflex 500 mg capsule RxNorm: 463332 1 Capsule(s) PO QID 04/03/2014 04/09/2014 Inactive [SAVINGS FOR UNINSURED PATIENTS -- BIN:852961, PCN: ASPROD1, Group: [id number], ID# [id number], Process claim through [employer], for questions: . THIS IS NOT INSURANCE.] Synthroid 100 mcg tablet RxNorm: 379410 1 Tablet(s) PO daily TAKE ONE TABLET BY MOUTH EVERY DAY 04/01/2014 01/05/2015 Inactive [SAVINGS FOR UNINSURED PATIENTS -- BIN:239410, PCN: ASPROD1, Group: [id number], ID# [id number], Process claim through [employer], for questions: . THIS IS NOT INSURANCE.] Duragesic 50 mcg/hr transdermal patch RxNorm: 647744 1 TD q72 hours 03/24/2014 06/04/2014 Inactive [SAVINGS FOR UNINSURED PATIENTS -- BIN:055454, PCN: ASPROD1, Group: [id number], ID# [id number], Process claim through [employer], for questions: . THIS IS NOT INSURANCE.] trazodone 50 mg tablet RxNorm: 749409 TAKE 1 AND 1/2 TABLET AT BEDTIME FOR 2 WEEKS, MAY INCREASE TO 2 TABLETS IF NECESSARY AFTER THAT 03/18/2014 09/13/2014 Inactive nystatin 100,000 unit/gram topical powder RxNorm: 635550 1 Application TOP BID 03/07/2014 03/16/2014 Inactive [SAVINGS FOR UNINSURED PATIENTS -- BIN:648111, PCN: ASPROD1, Group: AME08, ID# [id number], Process claim through [employer], for questions: . THIS IS NOT INSURANCE.] permethrin 5 % topical cream RxNorm: 978310 1 Application TOP daily 03/07/2014 11/23/2015 Inactive apply head to toe-leave on overnight and wash off in the a.m. May repeat x 1 if needed Diflucan 150 mg tablet RxNorm: 414944 1 Tablet(s) PO daily 03/07/2014 03/09/2014 Inactive [SAVINGS FOR UNINSURED PATIENTS -- BIN:533343, PCN: ASPROD1, Group: [id number], ID# [id number], Process claim through [employer], for questions: . THIS IS NOT INSURANCE.] hydrochlorothiazide 25 mg tablet RxNorm: 604848 TAKE ONE TABLET BY MOUTH EVERY DAY MUST CALL MD FOR APPOINTMENT 03/06/2014 04/23/2014 Inactive Zithromax Z-Sergio 250 mg tablet RxNorm: 321233 Tablet(s) PO as directed 03/04/2014 11/23/2015 Inactive [SAVINGS FOR UNINSURED PATIENTS -- BIN:570798, PCN: ASPROD1, Group: [id number], ID# [id number], Process claim through [employer], for questions: . THIS IS NOT INSURANCE.] Flonase 50 mcg/actuation nasal spray,suspension RxNorm: 998195 1 [place] NASAL daily 03/04/2014 07/01/2014 Inactive [SAVINGS FOR UNINSURED PATIENTS -- BIN:754711, PCN: ASPROD1, Group: AME08, ID# [id number], Process claim through [employer], for questions: . THIS IS NOT INSURANCE.] alprazolam 0.25 mg tablet RxNorm: 304881 1 Tablet(s) PO PRN TAKE ONE TABLET BY MOUTH EVERY DAY NEEDED 02/25/2014 04/14/2014 Inactive (Appended: Controlled substance eRx refill - RxReferenceNumber: [id number]) alprazolam 0.25 mg tablet RxNorm: 721164 TAKE ONE TABLET BY MOUTH EVERY DAY NEEDED 02/21/2014 03/22/2014 Inactive (Response to an electronic controlled substance refill request - RxReferenceNumber: [id number]) alprazolam 0.25 mg tablet RxNorm: 462934 TAKE ONE TABLET BY MOUTH EVERY DAY NEEDED 02/21/2014 03/22/2014 Inactive (Response to an electronic controlled substance refill request - RxReferenceNumber: [id number]) alprazolam 0.25 mg tablet RxNorm: 512332 TAKE ONE TABLET BY MOUTH EVERY DAY NEEDED 02/18/2014 03/19/2014 Inactive (Response to an electronic controlled substance refill request - RxReferenceNumber: [id number]) Cymbalta 60 mg capsule,delayed release RxNorm: 410913 TAKE ONE CAPSULE BY MOUTH TWICE A DAY 02/18/2014 01/13/2015 Inactive Nexium 40 mg capsule,delayed release RxNorm: 897035 TAKE ONE CAPSULE BY MOUTH EVERY DAY 02/18/2014 01/13/2015 Inactive Bactrim DS 800 mg-160 mg tablet RxNorm: 750285 1 Tablet(s) PO BID 02/13/2014 02/19/2014 Inactive probiotic while one antibiotic Bactrim DS 800 mg-160 mg tablet RxNorm: 219000 1 Tablet(s) PO BID 02/13/2014 02/12/2014 Inactive hydrocodone 10 mg-acetaminophen 325 mg tablet RxNorm: 225418 Tablet(s) PO TAKE ONE TO TWO TABLETS BY MOUTH EVERY 6 HOURS NEEDED FOR PAIN 02/06/2014 03/18/2015 Inactive (Appended: Controlled substance eRx refill - RxReferenceNumber: [id number]) Abilify 2 mg tablet RxNorm: 934342 Tablet(s) PO TAKE ONE TABLET BY MOUTH EVERY NIGHT AT BEDTIME 02/03/2014 03/19/2015 Inactive Duragesic 50 mcg/hr transdermal patch RxNorm: 227636 1 TD q72 hours 01/14/2014 03/23/2014 Inactive alprazolam 0.25 mg tablet RxNorm: 342919 1 Tablet(s) PO QDAY PRN 01/14/2014 02/12/2014 Inactive alprazolam 0.25 mg tablet RxNorm: 970605 Tablet(s) PO TAKE ONE TABLET BY MOUTH EVERY DAY NEEDED 01/14/2014 02/24/2014 Inactive (Appended: Controlled substance eRx refill - RxReferenceNumber: [id number]) Lipitor 10 mg tablet RxNorm: 596739 Tablet(s) PO TAKE ONE TABLET BY MOUTH EVERY DAY 01/14/2014 04/13/2014 Inactive Synthroid 100 mcg tablet RxNorm: 469553 Tablet(s) PO TAKE ONE TABLET BY MOUTH EVERY DAY 2013 03/31/2014 Inactive Fioricet 50 mg-325 mg-40 mg tablet RxNorm: 763799 Tablet(s) PO TAKE ONE TABLET BY MOUTH EVERY 4 HOURS NEEDED FOR PAIN 11/27/2013 09/17/2014 Inactive Fioricet 50 mg-325 mg-40 mg tablet RxNorm: 537560 Tablet(s) PO TAKE ONE TABLET BY MOUTH EVERY 4 HOURS NEEDED FOR PAIN 11/25/2013 11/26/2013 Inactive Zithromax Z-Sergio 250 mg tablet RxNorm: 526702 Tablet(s) PO as directed 11/11/2013 01/13/2014 Inactive Bystolic 10 mg tablet RxNorm: 933737 Tablet(s) PO TAKE ONE TABLET BY MOUTH EVERY DAY 10/21/2013 09/28/2014 Inactive Abilify 2 mg tablet RxNorm: 496489 1 Tablet(s) PO QHS 09/25/2013 01/22/2014 Inactive Synthroid 100 mcg tablet RxNorm: 963700 Tablet(s) PO TAKE ONE TABLET BY MOUTH EVERY DAY 09/24/2013 12/25/2013 Inactive Abilify 2 mg tablet RxNorm: 625004 1 Tablet(s) PO QHS 09/24/2013 09/24/2013 Inactive Rocephin 500 mg solution for injection RxNorm: 040145 1ml Milliliter(s) Inj 09/24/2013 09/24/2013 Inactive Rocephin 500 mg solution for injection RxNorm: 569708 1 Milliliter(s) Inj 09/19/2013 09/19/2013 Inactive Bystolic 5 mg tablet RxNorm: 112671 1 1/2 Tablet(s) PO daily 09/17/2013 03/15/2014 Inactive 1 1/2 daily may have 90 day if cheaper Bystolic 5 mg tablet RxNorm: 472560 1 1/2 Tablet(s) PO daily 09/17/2013 09/16/2013 Inactive 1 1/2 daily Lipitor 10 mg tablet RxNorm: 550608 Tablet(s) PO TAKE ONE TABLET BY MOUTH EVERY DAY 09/12/2013 01/13/2014 Inactive hydrocodone 10 mg-acetaminophen 325 mg tablet RxNorm: 451261 Tablet(s) PO TAKE ONE TO TWO TABLETS BY MOUTH EVERY 6 HOURS NEEDED FOR PAIN 09/09/2013 No Stop Date Active (Appended: Controlled substance eRx refill - RxReferenceNumber: [id number]) hydrocodone 10 mg-acetaminophen 325 mg tablet RxNorm: 178873 1 Tablet(s) PO Q6 PRN 09/09/2013 02/06/2014 Inactive hydrocodone 10 mg-acetaminophen 325 mg tablet RxNorm: 979336 Tablet(s) PO TAKE ONE TO TWO TABLETS BY MOUTH EVERY 6 HOURS NEEDED FOR PAIN 09/06/2013 No Stop Date Active (Appended: Controlled substance eRx refill - RxReferenceNumber: [id number]) Norvasc 10 mg tablet RxNorm: 986485 Tablet(s) PO TAKE ONE TABLET BY MOUTH EVERY DAY 09/05/2013 10/25/2015 Inactive trazodone 50 mg tablet RxNorm: 915928 1 1/2 Tablet(s) PO QHS 09/03/2013 03/17/2014 Inactive 75q hs x 2 week may increase to 100mg if nec after that nystatin 100,000 unit/mL oral suspension RxNorm: 719664 6 Milliliter(s) PO QID 08/06/2013 08/15/2013 Inactive Flonase 50 mcg/actuation nasal spray,suspension RxNorm: 233822 2 [place] NASAL daily 08/06/2013 03/03/2014 Inactive nystatin 100,000 unit/mL oral suspension RxNorm: 358269 6 Unit(s) PO QID 08/05/2013 08/05/2013 Inactive Phenergan with Codeine Syrup RxNorm: 5 Milliliter(s) PO Q4 PRN 08/05/2013 12/02/2013 Inactive 8 ounces alprazolam 0.25 mg tablet RxNorm: 573213 1 Tablet(s) PO QDAY PRN 07/29/2013 01/14/2014 Inactive Diflucan 150 mg tablet RxNorm: 354760 1 Tablet(s) PO daily 07/24/2013 07/26/2013 Inactive hydrochlorothiazide 25 mg tablet RxNorm: 895326 Tablet(s) PO TAKE ONE TABLET BY MOUTH EVERY DAY MUST CALL MD FOR APPOINTMENT 07/19/2013 03/05/2014 Inactive Phenergan with Codeine Syrup RxNorm: 10 Milliliter(s) PO Q4 PRN 07/10/2013 08/04/2013 Inactive 8 ounces Rocephin 500 mg solution for injection RxNorm: 851064 1 Inj 07/10/2013 07/10/2013 Inactive cefdinir 300 mg capsule RxNorm: 319373 1 Capsule(s) PO BID 07/10/2013 07/16/2013 Inactive prednisone 10 mg tablet RxNorm: 635881 3 Tablet(s) PO daily 07/10/2013 07/14/2013 Inactive Carafate 100 mg/mL oral suspension RxNorm: 129119 10 Milliliter(s) PO Q6 PRN pt to take carafate 10mL every 6 hours as needed. 07/10/2013 08/05/2014 Inactive Kenalog 40 mg/mL suspension for injection RxNorm: 2808146 1 Milliliter(s) Inj 07/10/2013 07/10/2013 Inactive trazodone 50 mg tablet RxNorm: 987427 1 Tablet(s) PO QHS 07/10/2013 09/02/2013 Inactive sulfamethoxazole 800 mg-trimethoprim 160 mg tablet RxNorm: 950552 1 Tablet(s) PO BID 06/03/2013 06/12/2013 Inactive Synthroid 125 mcg tablet RxNorm: 264565 1 Tablet(s) PO daily 05/07/2013 09/23/2013 Inactive Bystolic 10 mg tablet RxNorm: 838130 1.5 Tablet(s) PO daily 05/07/2013 09/03/2013 Inactive Voltaren 1 % Topical Gel RxNorm: 756768 4 Gram(s) TOP QID apply 4 grams to knees, 2 grams to hands and ankles four times daily. 05/07/2013 09/03/2013 Inactive hydrocodone 10 mg-acetaminophen 325 mg tablet RxNorm: 052647 1 Tablet(s) PO Q6 PRN 04/23/2013 09/09/2013 Inactive Norvasc 10 mg tablet RxNorm: 297069 Tablet(s) PO TAKE ONE TABLET BY MOUTH EVERY DAY 04/23/2013 09/04/2013 Inactive alprazolam 0.25 mg tablet RxNorm: 570639 1 Tablet(s) PO QDAY PRN 03/25/2013 07/22/2013 Inactive Bystolic 10 mg tablet RxNorm: 764893 1 Tablet(s) PO daily TAKE ONE TABLET BY MOUTH EVERY DAY 03/25/2013 05/06/2013 Inactive zolpidem 10 mg tablet RxNorm: 128455 1 Tablet(s) PO HS PRN 03/25/2013 07/09/2013 Inactive gentamicin 0.3 % Eye Drops RxNorm: 959999 3 Drop(s) OPH QID three gtts to each eye QID x 7 days 03/11/2013 03/10/2013 Inactive gentamicin 0.3 % eye drops RxNorm: 844062 3 Drop(s) OPH QID three gtts to each eye QID x 7 days 03/11/2013 03/17/2013 Inactive Nexium 40 mg capsule,delayed release RxNorm: 949667 Capsule(s) PO TAKE ONE CAPSULE BY MOUTH EVERY DAY 02/15/2013 02/17/2014 Inactive Cymbalta 60 mg capsule,delayed release RxNorm: 609465 Capsule(s) PO TAKE ONE CAPSULE BY MOUTH TWICE A DAY 02/15/2013 02/17/2014 Inactive hydrocodone 10 mg-acetaminophen 325 mg tablet RxNorm: 7518554 1 Tablet(s) PO Q6 PRN 01/22/2013 04/22/2013 Inactive Lipitor 10 mg tablet RxNorm: 446110 Tablet(s) PO TAKE ONE TABLET BY MOUTH EVERY DAY 01/07/2013 09/11/2013 Inactive Cymbalta 60 mg capsule,delayed release RxNorm: 652548 Capsule(s) PO TAKE ONE CAPSULE BY MOUTH TWICE A DAY 01/02/2013 02/14/2013 Inactive Synthroid 100 mcg tablet RxNorm: 329310 1 Tablet(s) PO 12/03/2012 05/06/2013 Inactive Enablex 7.5 mg tablet,extended release RxNorm: 909168 1 Tablet(s) PO daily 11/28/2012 11/27/2012 Inactive Enablex 7.5 mg tablet,extended release RxNorm: 332285 1 Tablet(s) PO daily 11/28/2012 11/28/2012 Inactive scopolamine 1.5 mg 72 hr Transderm Patch RxNorm: 442819 1 Milligram(s) TD q72 hours 11/26/2012 05/06/2013 Inactive hydrochlorothiazide 25 mg tablet RxNorm: 742309 Tablet(s) PO TAKE ONE TABLET BY MOUTH EVERY DAY MUST CALL FOR APPOINTMENT 11/24/2012 07/18/2013 Inactive Cymbalta 60 mg capsule,delayed release RxNorm: 407778 Capsule(s) PO TAKE ONE CAPSULE BY MOUTH TWICE A DAY 10/26/2012 01/01/2013 Inactive Bystolic 10 mg tablet RxNorm: 646283 Tablet(s) PO TAKE ONE TABLET BY MOUTH EVERY DAY 10/12/2012 03/25/2013 Inactive zolpidem 10 mg tablet RxNorm: 791222 1 Tablet(s) PO HS PRN 10/02/2012 01/29/2013 Inactive alprazolam 0.25 mg tablet RxNorm: 315036 1 Tablet(s) PO QDAY PRN 10/02/2012 01/29/2013 Inactive Kenalog 40 mg/mL Susp for Injection RxNorm: 8893040 1 Milliliter(s) Inj 09/24/2012 09/24/2012 Inactive Diflucan 150 mg tablet RxNorm: 126270 1 Tablet(s) PO daily 09/24/2012 09/30/2012 Inactive acyclovir 400 mg tablet RxNorm: 296605 1 Tablet(s) PO QID 09/24/2012 10/08/2012 Inactive Cipro 500 mg tablet RxNorm: 510732 1 Tablet(s) PO BID 09/24/2012 09/30/2012 Inactive Tamiflu 75 mg capsule RxNorm: 493641 1 Capsule(s) PO BID 09/17/2012 09/16/2012 Inactive Tamiflu 75 mg capsule RxNorm: 623904 1 Capsule(s) PO BID 09/17/2012 09/16/2012 Inactive Tamiflu 75 mg capsule RxNorm: 857535 1 Capsule(s) PO BID please disregard order for #14 09/17/2012 09/21/2012 Inactive fluconazole 150 mg tablet RxNorm: 723977 1 Tablet(s) PO daily 09/10/2012 09/13/2012 Inactive ketoconazole 2 % Topical Cream RxNorm: 740065 Application TOP BID apply to affected area BID until gone 08/31/2012 No Stop Date Active Norvasc 10 mg tablet RxNorm: 530882 Tablet(s) PO TAKE ONE TABLET BY MOUTH EVERY DAY 08/29/2012 04/22/2013 Inactive Cipro 500 mg tablet RxNorm: 846034 1 Tablet(s) PO BID 08/17/2012 08/26/2012 Inactive Flagyl 500 mg tablet RxNorm: 939930 1 Tablet(s) PO TID 08/17/2012 08/23/2012 Inactive Cipro 500 mg tablet RxNorm: 319536 1 Tablet(s) PO BID 08/17/2012 08/16/2012 Inactive zolpidem 10 mg tablet RxNorm: 294965 1 Tablet(s) PO HS PRN 08/17/2012 09/15/2012 Inactive Flagyl 500 mg tablet RxNorm: 188576 1 Tablet(s) PO TID 08/17/2012 08/16/2012 Inactive alprazolam 0.25 mg tablet RxNorm: 627091 1 Tablet(s) PO QDAY PRN 08/17/2012 09/15/2012 Inactive [place] Allergy 180 mg tablet RxNorm: 732864 1 Tablet(s) PO daily 08/08/2012 02/03/2013 Inactive hydrochlorothiazide 25 mg tablet RxNorm: 567682 1/2 Tablet(s) PO daily 08/08/2012 11/05/2012 Inactive needs appt Carafate 1 gram tablet RxNorm: 242846 1 Tablet(s) PO QID mix with 10 cc water and dissolve into slurry 08/08/2012 08/21/2012 Inactive hydrocodone 10 mg-acetaminophen 325 mg tablet RxNorm: 0515717 1 Tablet(s) PO Q6 PRN 08/08/2012 01/21/2013 Inactive Synthroid 100 mcg tablet RxNorm: 475832 1 Tablet(s) PO 08/08/2012 12/02/2012 Inactive Cymbalta 60 mg capsule,delayed release RxNorm: 352800 Capsule(s) PO 07/23/2012 10/25/2012 Inactive TAKE ONE CAPSULE BY MOUTH TWICE A DAY Nexium 40 mg capsule,delayed release RxNorm: 443231 Capsule(s) PO 06/20/2012 02/14/2013 Inactive TAKE ONE CAPSULE BY MOUTH EVERY DAY Lipitor 10 mg tablet RxNorm: 178000 Tablet(s) PO 06/20/2012 01/06/2013 Inactive TAKE ONE TABLET BY MOUTH EVERY DAY hydrochlorothiazide 25 mg tablet RxNorm: 836122 1 Tablet(s) PO daily 06/19/2012 08/07/2012 Inactive needs appt alprazolam 0.25 mg tablet RxNorm: 089510 1 Tablet(s) PO QDAY PRN 06/05/2012 07/04/2012 Inactive zolpidem 10 mg tablet RxNorm: 964008 1 Tablet(s) PO HS PRN 06/05/2012 07/04/2012 Inactive zolpidem 10 mg tablet RxNorm: 568631 1 Tablet(s) PO HS PRN 04/16/2012 05/15/2012 Inactive alprazolam 0.25 mg tablet RxNorm: 651438 1 Tablet(s) PO QDAY PRN 04/16/2012 05/15/2012 Inactive Cymbalta 60 mg capsule,delayed release RxNorm: 096372 1 Capsule(s) PO BID 03/22/2012 07/19/2012 Inactive Fioricet 50 mg-325 mg-40 mg tablet RxNorm: 849933 1 Tablet(s) PO Q4 PRN 03/22/2012 11/24/2013 Inactive Bystolic 10 mg tablet RxNorm: 122227 Tablet(s) PO 03/22/2012 10/11/2012 Inactive TAKE ONE TABLET BY MOUTH EVERY DAY potassium chloride ER 10 mEq Tab RxNorm: 000358 1 Tablet(s) PO daily 02/24/2012 03/01/2012 Inactive Lasix 20 mg Tab RxNorm: 656639 1 Tablet(s) PO daily 02/22/2012 02/21/2012 Inactive KCL 10 meq RxNorm: 1 PO daily 02/22/2012 02/21/2012 Inactive potassium chloride ER 10 mEq Tab RxNorm: 261127 1 Tablet(s) PO daily 02/22/2012 02/21/2012 Inactive Lasix 20 mg Tab RxNorm: 545229 1 Tablet(s) PO daily 02/22/2012 02/28/2012 Inactive KCL 10 meq RxNorm: 1 PO daily 02/22/2012 02/22/2012 Inactive potassium chloride ER 10 mEq Tab RxNorm: 266798 1 Tablet(s) PO daily 02/22/2012 02/23/2012 Inactive Rocephin 500 mg Solution for Injection RxNorm: 523708 Inj 02/15/2012 02/15/2012 Inactive Nexium 40 mg capsule,delayed release RxNorm: 201834 1 Capsule(s) PO daily 02/15/2012 No Stop Date Active Bystolic 10 mg Tab RxNorm: 927993 1 Tablet(s) PO daily 02/15/2012 08/12/2012 Inactive alprazolam 0.25 mg tablet RxNorm: 705167 1 Tablet(s) PO QDAY PRN 01/31/2012 02/29/2012 Inactive zolpidem 10 mg tablet RxNorm: 693023 1 Tablet(s) PO HS PRN 01/31/2012 02/29/2012 Inactive alprazolam 0.25 mg Tab RxNorm: 765923 1 Tablet(s) PO QDAY PRN 12/16/2011 01/14/2012 Inactive zolpidem 10 mg Tab RxNorm: 145641 1 Tablet(s) PO HS PRN 12/16/2011 01/14/2012 Inactive Norvasc 10 mg tablet RxNorm: 905282 1 Tablet(s) PO daily 12/02/2011 02/21/2012 Inactive Lipitor 10 mg tablet RxNorm: 322455 1 Tablet(s) PO daily 11/16/2011 05/13/2012 Inactive zolpidem 10 mg Tab RxNorm: 758030 1 Tablet(s) PO HS PRN 10/26/2011 12/15/2011 Inactive alprazolam 0.25 mg Tab RxNorm: 015326 1 Tablet(s) PO QDAY PRN 10/26/2011 12/15/2011 Inactive hydrochlorothiazide 25 mg tablet RxNorm: 085644 1 Tablet(s) PO daily 09/05/2011 03/02/2012 Inactive Synthroid 75 mcg tablet RxNorm: 901758 1 Tablet(s) PO daily 08/01/2011 02/26/2012 Inactive Abilify 2 mg Tab RxNorm: 364786 1 Tablet(s) PO QHS 08/01/2011 09/10/2012 Inactive dicyclomine 10 mg Cap RxNorm: 964976 1 Capsule(s) PO TID 08/01/2011 10/29/2011 Inactive alprazolam 0.25 mg Tab RxNorm: 188797 1 Tablet(s) PO QDAY PRN 07/26/2011 10/25/2011 Inactive Fioricet 50 mg-325 mg-40 mg tablet RxNorm: 525825 1 Tablet(s) PO Q4 PRN 07/14/2011 03/21/2012 Inactive Rocephin 500 mg Solution for Injection RxNorm: 820000 1 Milliliter(s) Inj 07/14/2011 08/01/2011 Inactive Nexium 40 mg Capsule, delayed release RxNorm: 792085 1 Capsule(s) PO daily 05/23/2011 10/06/2011 Inactive Bystolic 10 mg tablet RxNorm: 651132 1 Tablet(s) PO daily 05/23/2011 11/18/2011 Inactive Bystolic 10 mg Tab RxNorm: 408039 1 Tablet(s) PO daily 05/23/2011 05/22/2011 Inactive alprazolam 0.25 mg Tab RxNorm: 280008 1 Tablet(s) PO QDAY PRN 05/23/2011 07/25/2011 Inactive Influenza Virus Vaccine 0.5 mL RxNorm: IM 05/23/2011 05/23/2011 Inactive zolpidem 10 mg Tab RxNorm: 652088 1 Tablet(s) PO HS PRN 05/23/2011 10/25/2011 Inactive Rocephin 500 mg Solution for Injection RxNorm: 803190 1 Milliliter(s) Inj 05/03/2011 07/14/2011 Inactive Kenalog 40 mg/mL Susp for Injection RxNorm: 2305396 1 Milliliter(s) Inj 05/03/2011 07/14/2011 Inactive Bactrim DS 800 mg-160 mg Tab RxNorm: 520660 1 Tablet(s) PO BID 05/03/2011 08/01/2011 Inactive Flonase 50 mcg/actuation nasal spray,suspension RxNorm: 1273405 1 [place] NASAL daily No Start Date Active 1 spray to each nostril daily aspirin 81 mg tablet RxNorm: 793900 1 Tablet(s) PO daily No Start Date Active baclofen 10 mg tablet RxNorm: 650482 1 Tablet(s) PO TID as needed muscle spasms No Start Date Active Fish Oil 1,000 mg Cap RxNorm: 1 Capsule(s) PO TID No Start Date Active Flonase 50 mcg/actuation nasal spray,suspension RxNorm: 8734629 2 [place] NASAL daily No Start Date 08/05/2013 Inactive Duragesic 50 mcg/hr transdermal patch RxNorm: 585982 1 TD q72 hours No Start Date 01/13/2014 Inactive Vesicare 5 mg tablet RxNorm: 576450 1 Tablet(s) PO daily No Start Date 01/06/2015 Inactive Celebrex 200 mg capsule RxNorm: 876897 1 Capsule(s) PO daily No Start Date 04/02/2014 Inactive zolpidem 10 mg Tab RxNorm: 099263 1 Tablet(s) PO HS PRN No Start Date 05/22/2011 Inactive Zyrtec 10 mg Tab RxNorm: 1298079 1 Tablet(s) PO daily No Start Date 08/08/2012 Inactive Nexium 40 mg Cap RxNorm: 394716 1 Capsule(s) PO daily No Start Date 05/22/2011 Inactive ketoconazole 2 % Topical Cream RxNorm: 888952 Application TOP BID apply to affected area BID until gone No Start Date 08/30/2012 Inactive Cymbalta 60 mg capsule,delayed release RxNorm: 210434 1 Capsule(s) PO BID No Start Date 03/21/2012 Inactive alprazolam 0.25 mg Tab RxNorm: 939873 1 Tablet(s) PO QDAY PRN No Start Date 05/22/2011 Inactive Toprol XL 100 mg 24 hr Tab RxNorm: 189619 1 Tablet(s) PO BID No Start Date 04/25/2011 Inactive Xanax 0.25 mg tablet RxNorm: 733540 1 Tablet(s) PO daily as needed No Start Date 12/27/2015 Inactive Bystolic 10 mg Tab RxNorm: 525351 1 Tablet(s) PO daily No Start Date 05/22/2011 Inactive Fioricet 50 mg-325 mg-40 mg Tab RxNorm: 261054 1 Tablet(s) PO Q4 PRN No Start Date 07/13/2011 Inactive albuterol sulfate HFA 90 mcg/Actuation Aerosol Inhaler RxNorm: 8732201 1 INH Q4 PRN No Start Date 01/06/2015 Inactive Imitrex 50 mg tablet RxNorm: 371154 1 Tablet(s) PO Q8 as needed may repeat x1 dose in 1 hour of inital dose. No Start Date 02/24/2016 Inactive dc fioricet Tessalon 200 mg Cap RxNorm: 820209 1 Capsule(s) PO Q4 PRN No Start Date 02/14/2012 Inactive Zithromax Z-Sergio 250 mg tablet RxNorm: 022994 Tablet(s) PO No Start Date 11/10/2013 Inactive hydrochlorothiazide 25 mg Tab RxNorm: 549786 1 Tablet(s) PO daily No Start Date 09/04/2011 Inactive Deplin 15 mg Tab RxNorm: 1 Tablet(s) PO daily No Start Date 08/01/2011 Inactive Brilinta 90 mg tablet RxNorm: 8408148 1 Tablet(s) PO BID No Start Date 11/23/2015 Inactive Synthroid 75 mcg Tab RxNorm: 039588 1 Tablet(s) PO daily No Start Date 07/31/2011 Inactive scopolamine 1.5 mg 72 hr Transderm Patch RxNorm: 481219 1 Milligram(s) TD q72 hours No Start Date 11/25/2012 Inactive hydrocodone-acetaminophen 10 mg-325 mg tablet RxNorm: 3662404 1 Tablet(s) PO Q6 PRN No Start Date 08/07/2012 Inactive Phenergan with Codeine Syrup RxNorm: 5-10 Milliliter(s) PO Q6 PRN No Start Date 02/14/2012 Inactive Norvasc 10 mg Tab RxNorm: 901581 1 Tablet(s) PO daily No Start Date 12/01/2011 Inactive Zithromax Z-Sergio 250 mg Tab RxNorm: 584956 Tablet(s) PO No Start Date 08/01/2011 Inactive Medication Administered Medication Codes Instructions Start Date Status ceftriaxone 500 mg solution for injection RxNorm: 1566587 1Milliliter 11/28/2016 No longer Active Kenalog 40 mg/mL suspension for injection RxNorm: 6492289 Milliliter 11/07/2016 No longer Active ceftriaxone 500 mg solution for injection RxNorm: 5996722 11/07/2016 No longer Active ceftriaxone 500 mg solution for injection RxNorm: 7961745 12/07/2015 No longer Active Kenalog 40 mg/mL suspension for injection RxNorm: 1630671 1Milliliter 11/24/2015 No longer Active ceftriaxone 500 mg solution for injection RxNorm: 8484415 Milliliter 11/24/2015 No longer Active promethazine 25 mg/mL injection solution RxNorm: 989344 Milliliter 08/27/2015 No longer Active ketorolac 60 mg/2 mL intramuscular solution RxNorm: 659611 Milliliter 08/27/2015 No longer Active Kenalog 40 mg/mL suspension for injection RxNorm: 1745227 Milliliter 08/10/2015 No longer Active ceftriaxone 500 mg solution for injection RxNorm: 4856152 08/10/2015 No longer Active ceftriaxone 500 mg solution for injection RxNorm: 0450519 1Milliliter 07/28/2015 No longer Active Kenalog 40 mg/mL suspension for injection RxNorm: 9724007 Milliliter 03/19/2015 No longer Active Kenalog 40 mg/mL suspension for injection RxNorm: 2089585 Milliliter 06/23/2014 No longer Active ceftriaxone 500 mg solution for injection RxNorm: 573481 06/23/2014 No longer Active Rocephin 500 mg solution for injection RxNorm: 013034 1mlMilliliter 09/24/2013 No longer Active Rocephin 500 mg solution for injection RxNorm: 666705 1Milliliter 09/19/2013 No longer Active Rocephin 500 mg solution for injection RxNorm: 149116 1 07/10/2013 No longer Active Kenalog 40 mg/mL suspension for injection RxNorm: 0193530 1Milliliter 07/10/2013 No longer Active Kenalog 40 mg/mL Susp for Injection RxNorm: 3048182 1Milliliter 09/24/2012 No longer Active Rocephin 500 mg Solution for Injection RxNorm: 635311 02/15/2012 No longer Active Influenza Virus Vaccine [...] Ucult Complete NO Growth Day 2 11/30/2016 Free T4 Nat955 FREE T4 0.75 ng/dL 11/07/2016 Comp Metabolic Wzw180 NA 139 mEq/L 11/07/2016 Comp Metabolic Mmu310 K 3.8 mEq/L 11/07/2016 Comp Metabolic Ghh788 CL 106 mEq/L 11/07/2016 Comp Metabolic Zcj202 CO2 25.0 mEq/L 11/07/2016 Comp Metabolic Sov691 ANION GAP 12 11/07/2016 Comp Metabolic Zzi269 GLUCOSE 98 mg/dL 11/07/2016 Comp Metabolic Frf629 Creat 0.8 mg/dL 11/07/2016 Comp Metabolic Ziv531 eGFR 71 ml/min/1.73m2 11/07/2016 Comp Metabolic Ieu830 BUN 36 mg/dL 11/07/2016 Comp Metabolic Hfg485 B/C Ratio 42.9 Ratio 11/07/2016 Comp Metabolic Oeo602 CALCIUM 9.9 mg/dL 11/07/2016 Comp Metabolic Mzd884 ALK PHOS 57 U/L 11/07/2016 Comp Metabolic Vwg029 AST(SGOT) 24 U/L 11/07/2016 Comp Metabolic Ssf338 ALT(SGPT) 28 U/L 11/07/2016 Comp Metabolic Yav086 BILI T 0.4 mg/dL 11/07/2016 Comp Metabolic Ors847 ALBUMIN 4.2 g/dL 11/07/2016 Comp Metabolic Nrh980 TPRO 7.0 g/dL 11/07/2016 Comp Metabolic Nvu522 GLOB 2.8 g/dL 11/07/2016 Comp Metabolic Zpw657 A/G Ratio 1.5 Ratio 11/07/2016 Comp Metabolic Uff662 Osmo 286 mOsmo 11/07/2016 Cbc With Differential Ord2 WBC 9.22 K/ul 11/07/2016 Cbc With Differential Ord2 RBC 4.87 M/ul 11/07/2016 Cbc With Differential Ord2 HGB 15.3 g/dl 11/07/2016 Cbc With Differential Ord2 Neut% 63.7 % 11/07/2016 Cbc With Differential Ord2 HCT 47.0 % 11/07/2016 Cbc With Differential Ord2 Lymph% 26.9 % 11/07/2016 Cbc With Differential Ord2 MCV 96.5 fl 11/07/2016 Cbc With Differential Ord2 [place]% 6.1 % 11/07/2016 Cbc With Differential Ord2 [...] 2.48 K/ul 11/07/2016 Cbc With Differential Ord2 [place] ABS# 0.6 K/ul 11/07/2016 Cbc With Differential Ord2 Eos ABS# 0.3 K/ul 11/07/2016 Cbc With Differential Ord2 Baso ABS# 0.1 K/ul 11/07/2016 Tsh Ord6 hTSH II 3.46 uIU/mL 11/07/2016 Lipid Ord30 CHOL 206 mg/dL 11/07/2016 Lipid Ord30 HDL 53.0 mg/dl 11/07/2016 Lipid Ord30 TRIG 144 mg/dL 11/07/2016 Lipid Ord30 LDL 124 mg/dL 11/07/2016 Lipid Ord30 C/HDL 3.9 Ratio 11/07/2016 Lipid Ord30 CHOL 169 mg/dL 05/10/2016 Lipid Ord30 HDL 50.0 mg/dl 05/10/2016 Lipid Ord30 TRIG 161 mg/dL 05/10/2016 Lipid Ord30 LDL 87 mg/dL 05/10/2016 Lipid Ord30 C/HDL 3.4 Ratio 05/10/2016 Comp Metabolic Yml574 NA 138 mEq/L 05/10/2016 Comp Metabolic Zam715 K 3.8 mEq/L 05/10/2016 Comp Metabolic Vyb130 CL 102 mEq/L 05/10/2016 Comp Metabolic Aih322 CO2 29.0 mEq/L 05/10/2016 Comp Metabolic Oqs753 ANION GAP 11 05/10/2016 Comp Metabolic Mun533 GLUCOSE 107 mg/dL 05/10/2016 Comp Metabolic Tdk048 Creat 0.7 mg/dL 05/10/2016 Comp Metabolic Vxe422 eGFR 93 ml/min/1.73m2 05/10/2016 Comp Metabolic Qmz758 BUN 18 mg/dL 05/10/2016 Comp Metabolic Fkj830 B/C Ratio 26.9 Ratio 05/10/2016 Comp Metabolic Utw627 CALCIUM 9.8 mg/dL 05/10/2016 Comp Metabolic Txz810 ALK PHOS 60 U/L 05/10/2016 Comp Metabolic Dlf173 AST(SGOT) 21 U/L 05/10/2016 Comp Metabolic Mjc291 ALT(SGPT) 23 U/L 05/10/2016 Comp Metabolic Mmu361 BILI T 0.5 mg/dL 05/10/2016 Comp Metabolic Zck287 ALBUMIN 4.1 g/dL 05/10/2016 Comp Metabolic Qqs878 TPRO 6.7 g/dL 05/10/2016 Comp Metabolic Ljx869 GLOB 2.7 g/dL 05/10/2016 Comp Metabolic Npf120 A/G Ratio 1.5 Ratio 05/10/2016 Comp Metabolic Xfa343 Osmo 278 mOsmo 05/10/2016 Comp Metabolic Hyo317 NA 137 mEq/L 06/12/2015 Comp Metabolic Zut040 K 3.8 mEq/L 06/12/2015 Comp Metabolic Ojg904 CL 104 mEq/L 06/12/2015 Comp Metabolic Xza996 CO2 24.0 mEq/L 06/12/2015 Comp Metabolic Mbn968 ANION GAP 13 06/12/2015 Comp Metabolic Mpi399 GLUCOSE 92 mg/dL 06/12/2015 Comp Metabolic Vza237 Creat 0.7 mg/dL 06/12/2015 Comp Metabolic Htm193 eGFR 87 ml/min/1.73m2 06/12/2015 Comp Metabolic Ojz762 BUN 31 mg/dL 06/12/2015 Comp Metabolic Jja818 B/C Ratio 43.7 Ratio 06/12/2015 Comp Metabolic Yjb291 CALCIUM 10.0 mg/dL 06/12/2015 Comp Metabolic Egn422 ALK PHOS 58 U/L 06/12/2015 Comp Metabolic Ide054 AST(SGOT) 32 U/L 06/12/2015 Comp Metabolic Xeo014 ALT(SGPT) 33 U/L 06/12/2015 Comp Metabolic Kbx640 BILI T 0.5 mg/dL 06/12/2015 Comp Metabolic Hnt555 ALBUMIN 4.1 g/dL 06/12/2015 Comp Metabolic Pky046 TPRO 6.6 g/dL 06/12/2015 Comp Metabolic Asb180 GLOB 2.5 g/dL 06/12/2015 Comp Metabolic Lci545 A/G Ratio 1.6 Ratio 06/12/2015 Comp Metabolic Hfk251 Osmo 280 mOsmo 06/12/2015 Cbc With Differential [...] Differential Ord2 RDW 14.2 % 06/12/2015 CBC [id number] WBC 8.7 10e9/L 04/30/2013 CBC [id number] RBC 4.63 10e12/L 04/30/2013 CBC [id number] HGB 14.1 g/dL 04/30/2013 CBC 6822115 HCT DET 42.2 % 04/30/2013 CBC [id number] MCV 91.1 fL 04/30/2013 CBC 3208040 MCH 30.5 pg 04/30/2013 CBC 1339363 MCHC 33.4 g/dL 04/30/2013 CBC 1014922 PLT 248 10e9/L 04/30/2013 CBC 8601609 MPV 12.1 fL 04/30/2013 CBC 3824751 LARA % 59.0 % 04/30/2013 CBC 7345060 LY % 27.6 % 04/30/2013 CBC 3610335 MON % 8.0 % 04/30/2013 CBC 3372542 EOS % 4.8 % 04/30/2013 CBC 7613049 BASO % 0.6 % 04/30/2013 CBC 3441349 RDW 13.3 % 04/30/2013 CBC 3400758 ABS LARA 5.13 10e9/L 04/30/2013 CBC 5184846 ABS LYMPH 2.40 10e9/L 04/30/2013 CBC [id number] ABS MONO 0.70 10e9/L 04/30/2013 CBC 3762018 ABS EOS 0.42 10e9/L 04/30/2013 CBC 5545176 ABS BASO 0.05 10e9/L 04/30/2013 CBC 6598978 RDW-SD 43.1 fL 04/30/2013 A1C HPLC 5347088 A1C HPLC 25329-3 5.6 % 04/30/2013 CHEM 14 3804670 AST 22 U/L 04/30/2013 CHEM 14 9723239 ALT 22 IU/L 04/30/2013 CHEM 14 4897731 BUN 24 MG/DL 04/30/2013 CHEM 14 8695078 ALBUMIN 4.2 GM/DL 04/30/2013 CHEM 14 7996057 CHLORIDE 107 MMOL/L 04/30/2013 CHEM 14 2090067 BILI TOT 0.3 MG/DL 04/30/2013 CHEM 14 7691754 ALK PHOS 88 U/L 04/30/2013 CHEM 14 1920441 SODIUM 141 MMOL/L 04/30/2013 CHEM 14 2500346 CREATININE 0.60 MG/DL 04/30/2013 CHEM 14 2787175 CALCIUM 9.9 MG/DL 04/30/2013 CHEM 14 3458758 POTASSIUM 3.7 MMOL/L 04/30/2013 CHEM 14 0710244 PROT TOT 6.6 GM/DL 04/30/2013 CHEM 14 5699379 GLUCOSE 123 MG/DL 04/30/2013 CHEM 14 2011172 BICARB 25 MMOL/L 04/30/2013 CHEM 14 2705704 ANION GAP 9 MEQ/L 04/30/2013 LIPID GRP HDL TEST 46 MG/DL 04/30/2013 LIPID GRP TRIG 148 MG/DL 04/30/2013 LIPID GRP TEST LDL 75 MG/DL 04/30/2013 LIPID GRP CHOL 151 MG/DL 04/30/2013 LIPID GRP RCHOL/HDL 3.28 RATIO 04/30/2013 TSH 0810961 TSH 4.339 uIU/ML 04/30/2013 GFR CALC 4858364 GFR AA >60 ML/MIN 04/30/2013 GFR CALC 4894230 GFR NON-AA >60 ML/MIN 04/30/2013 FREE T4 4894160 FREE T4 0.84 NG/DL 04/30/2013 GFR CALC 2169915 GFR AA >60 ML/MIN 11/29/2012 GFR CALC 3734283 GFR NON-AA >60 ML/MIN 11/29/2012 TSH 6320280 TSH 3.341 uIU/ML 11/29/2012 CBC 7032823 WBC 8.4 10e9/L 11/29/2012 CBC 8198017 RBC 4.77 10e12/L 11/29/2012 CBC 4621217 HGB 14.9 g/dL 11/29/2012 CBC 8726089 HCT DET 44.2 % 11/29/2012 CBC 8846187 MCV 92.7 fL 11/29/2012 CBC 8736021 MCH 31.2 pg 11/29/2012 CBC 0806638 MCHC 33.7 g/dL 11/29/2012 CBC 9290178 PLT 253 10e9/L 11/29/2012 CBC 6959416 MPV 11.8 fL 11/29/2012 CBC 2115676 LARA % 54.9 % 11/29/2012 CBC 3245322 LY % 29.0 % 11/29/2012 CBC 0642695 MON % 10.4 % 11/29/2012 CBC 7479305 EOS % 5.1 % 11/29/2012 CBC 0181580 BASO % 0.6 % 11/29/2012 CBC 5339638 RDW 13.8 % 11/29/2012 CBC 8862941 ABS LARA 4.61 10e9/L 11/29/2012 CBC 2362500 ABS LYMPH 2.44 10e9/L 11/29/2012 CBC 5225707 ABS MONO 0.87 10e9/L 11/29/2012 CBC 5426767 ABS EOS 0.43 10e9/L 11/29/2012 CBC 3712553 ABS BASO 0.05 10e9/L 11/29/2012 CBC 3532335 RDW-SD 45.9 fL 11/29/2012 CHEM 14 4883939 AST 25 U/L 11/29/2012 CHEM 14 7314473 ALT 26 IU/L 11/29/2012 CHEM 14 1962431 BUN 25 MG/DL 11/29/2012 CHEM 14 9767773 ALBUMIN 4.4 GM/DL 11/29/2012 CHEM 14 3599293 CHLORIDE 106 MMOL/L 11/29/2012 CHEM 14 6819945 BILI TOT 0.4 MG/DL 11/29/2012 CHEM 14 6009743 ALK PHOS 86 U/L 11/29/2012 CHEM 14 8812826 SODIUM 141 MMOL/L 11/29/2012 CHEM 14 7482776 CREATININE 0.80 MG/DL 11/29/2012 CHEM 14 3522929 CALCIUM 9.7 MG/DL 11/29/2012 CHEM 14 1832268 POTASSIUM 4.0 MMOL/L 11/29/2012 CHEM 14 5533177 PROT TOT 6.6 GM/DL 11/29/2012 CHEM 14 1036542 GLUCOSE 112 MG/DL 11/29/2012 CHEM 14 7970357 BICARB 29 MMOL/L 11/29/2012 CHEM 14 1013254 ANION GAP 6 MEQ/L 11/29/2012 A1C HPLC 6756940 A1C HPLC 17861-4 5.5 % 11/29/2012 LIPID GRP HDL TEST 54 MG/DL 11/29/2012 LIPID GRP TRIG 77 MG/DL 11/29/2012 LIPID GRP TEST LDL 78 MG/DL 11/29/2012 LIPID GRP CHOL 147 MG/DL 11/29/2012 LIPID GRP RCHOL/HDL 2.72 RATIO 11/29/2012 FREE T4 6057806 FREE T4 1.23 NG/DL 11/29/2012 A1C HPLC 0706795 A1C HPLC 76735-8 5.4 % 08/07/2012 FREE T4 8437250 FREE T4 1.11 NG/DL 08/07/2012 LIPID GRP HDL TEST 50 MG/DL 08/07/2012 LIPID GRP TRIG 127 MG/DL 08/07/2012 LIPID GRP TEST LDL 93 MG/DL 08/07/2012 LIPID GRP CHOL 168 MG/DL 08/07/2012 LIPID GRP RCHOL/HDL 3.36 RATIO 08/07/2012 TSH 1466103 TSH 7.419 uIU/ML 08/07/2012 GFR CALC 4572914 GFR AA >60 ML/MIN 08/07/2012 GFR CALC 9009249 GFR NON-AA >60 ML/MIN 08/07/2012 CBC 4339037 WBC 8.7 10e9/L 08/07/2012 CBC 0935667 RBC 4.67 10e12/L 08/07/2012 CBC 3749932 HGB 14.4 g/dL 08/07/2012 CBC 5414437 HCT DET 42.8 % 08/07/2012 CBC 7668769 MCV 91.6 fL 08/07/2012 CBC 8131042 MCH 30.8 pg 08/07/2012 CBC 3963382 MCHC 33.6 g/dL 08/07/2012 CBC 9613658 PLT 271 10e9/L 08/07/2012 CBC 0988044 MPV 12.3 fL 08/07/2012 CBC 9071217 LARA % 50.6 % 08/07/2012 CBC 2213361 LY % 34.9 % 08/07/2012 CBC 5005380 MON % 9.1 % 08/07/2012 CBC 5881769 EOS % 5.1 % 08/07/2012 CBC 7757215 BASO % 0.3 % 08/07/2012 CBC 5662702 RDW 13.6 % 08/07/2012 CBC 1002990 ABS LARA 4.40 10e9/L 08/07/2012 CBC 2525820 ABS LYMPH 3.04 10e9/L 08/07/2012 CBC 4846424 ABS MONO 0.79 10e9/L 08/07/2012 CBC 3520940 ABS EOS 0.44 10e9/L 08/07/2012 CBC 1332155 ABS BASO 0.03 10e9/L 08/07/2012 CBC 0217218 RDW-SD 44.1 fL 08/07/2012 CHEM 14 2866377 AST 23 U/L 08/07/2012 CHEM 14 2617112 ALT 34 IU/L 08/07/2012 CHEM 14 3214677 BUN 26 MG/DL 08/07/2012 CHEM 14 5596054 ALBUMIN 4.4 GM/DL 08/07/2012 CHEM 14 1851770 CHLORIDE 105 MMOL/L 08/07/2012 CHEM 14 6475751 BILI TOT 0.5 MG/DL 08/07/2012 CHEM 14 8840113 ALK PHOS 79 U/L 08/07/2012 CHEM 14 5603273 SODIUM 140 MMOL/L 08/07/2012 CHEM 14 0789495 CREATININE 0.71 MG/DL 08/07/2012 CHEM 14 6258524 CALCIUM 10.4 MG/DL 08/07/2012 CHEM 14 0902657 POTASSIUM 3.8 MMOL/L 08/07/2012 CHEM 14 7555282 PROT TOT 6.8 GM/DL 08/07/2012 CHEM 14 8543920 GLUCOSE 104 MG/DL 08/07/2012 CHEM 14 1155171 BICARB 27 MMOL/L 08/07/2012 CHEM 14 8929658 ANION GAP 8 MEQ/L 08/07/2012 A1C HPLC 5094052 A1C HPLC 38827-5 5.3 % 02/21/2012 BMP 3607452 GLUCOSE 112 MG/DL 02/16/2012 BMP 2047537 CREATININE 0.65 MG/DL 02/16/2012 BMP 3893364 BUN 17 MG/DL 02/16/2012 BMP 6692508 SODIUM 144 MMOL/L 02/16/2012 BMP 0054170 POTASSIUM 4.0 MMOL/L 02/16/2012 BMP CHLORIDE 107 MMOL/L 02/16/2012 BMP BICARB 29 MMOL/L 02/16/2012 BMP ANION GAP 8 MEQ/L 02/16/2012 BMP CALCIUM 9.5 MG/DL 02/16/2012 TSH 0871685 TSH 0.832 uIU/ML 02/16/2012 FREE T4 6654520 FREE T4 1.04 NG/DL 02/16/2012 GFR CALC GFR AA >60 ML/MIN 02/16/2012 GFR CALC GFR NON-AA >60 ML/MIN 02/16/2012 CBC 8813882 WBC 7.1 10e9/L 02/16/2012 CBC 6153138 RBC 4.47 10e12/L 02/16/2012 CBC 9093828 HGB 13.5 g/dL 02/16/2012 CBC 4621224 HCT DET 40.7 % 02/16/2012 CBC 6287182 MCV 91.1 fL 02/16/2012 CBC 8701416 MCH 30.2 pg 02/16/2012 CBC 4786779 MCHC 33.2 g/dL 02/16/2012 CBC 5043977 PLT 238 10e9/L 02/16/2012 CBC 2899135 MPV 11.4 fL 02/16/2012 CBC 3366259 LARA % 55.7 % 02/16/2012 CBC 6230269 LY % 29.6 % 02/16/2012 CBC 9045879 MON % 9.2 % 02/16/2012 CBC 1975032 EOS % 5.1 % 02/16/2012 CBC 6293641 BASO % 0.4 % 02/16/2012 CBC 9933452 RDW 13.0 % 02/16/2012 CBC 1048111 ABS LARA 3.95 10e9/L 02/16/2012 CBC 8904316 ABS LYMPH 2.10 10e9/L 02/16/2012 CBC 4217215 ABS MONO 0.65 10e9/L 02/16/2012 CBC 9611622 ABS EOS 0.36 10e9/L 02/16/2012 CBC 8339502 ABS BASO 0.03 10e9/L 02/16/2012 CBC 6553512 RDW-SD 42.4 fL 02/16/2012 URINALYSIS NONAUTO W/O SCOPE 27399 Specific [place] 1.015 DateTime(Free Text in Aprima) URINALYSIS NONAUTO W/O SCOPE 14130 PH 7 DateTime(Free Text in Aprima) URINALYSIS NONAUTO W/O SCOPE 59657 GLUCOSE neg DateTime(Free Text in Aprima) URINALYSIS NONAUTO W/O SCOPE 71103 Protein 1+ DateTime(Free Text in Aprima) URINALYSIS NONAUTO W/O SCOPE 52689 Blood neg DateTime(Free Text in Aprima) URINALYSIS NONAUTO W/O SCOPE 81140 Bilirubin neg DateTime(Free Text in Aprima) URINALYSIS NONAUTO W/O SCOPE 16169 Ketones neg DateTime(Free Text in Aprima) URINALYSIS NONAUTO W/O SCOPE 77158 Urobilinogen neg DateTime(Free Text in Aprima) URINALYSIS NONAUTO W/O SCOPE 89944 Nitrite postive DateTime(Free Text in Aprima) URINALYSIS NONAUTO W/O SCOPE 86566 Leukocytes 3+ DateTime(Free Text in Aprima) URINALYSIS NONAUTO W/O SCOPE 85840 Specific [place] 1.030 DateTime(Free Text in Aprima) URINALYSIS NONAUTO W/O SCOPE 26732 PH 6 DateTime(Free Text in Aprima) URINALYSIS NONAUTO W/O SCOPE 09547 GLUCOSE neg DateTime(Free Text in Aprima) URINALYSIS NONAUTO W/O SCOPE 32084 Protein neg DateTime(Free Text in Aprima) URINALYSIS NONAUTO W/O SCOPE 38458 Blood neg DateTime(Free Text in Aprima) URINALYSIS NONAUTO W/O SCOPE 00348 Bilirubin neg DateTime(Free Text in Aprima) URINALYSIS NONAUTO W/O SCOPE 32930 Ketones neg DateTime(Free Text in Aprima) URINALYSIS NONAUTO W/O SCOPE 89524 Urobilinogen neg DateTime(Free Text in Aprima) URINALYSIS NONAUTO W/O SCOPE 83566 Nitrite neg DateTime(Free Text in Aprima) URINALYSIS NONAUTO W/O SCOPE 21191 Leukocytes trace DateTime(Free Text in Aprima) URINALYSIS NONAUTO W/O SCOPE 73736 Specific [place] 1.005 DateTime(Free Text in Aprima) URINALYSIS NONAUTO W/O SCOPE 04637 PH 5 DateTime(Free Text in Aprima) URINALYSIS NONAUTO W/O SCOPE 26545 GLUCOSE neg DateTime(Free Text in Aprima) URINALYSIS NONAUTO W/O SCOPE 87922 Protein neg DateTime(Free Text in Aprima) URINALYSIS NONAUTO W/O SCOPE 48442 Blood neg DateTime(Free Text in Aprima) URINALYSIS NONAUTO W/O SCOPE 15143 Bilirubin neg DateTime(Free Text in Aprima) URINALYSIS NONAUTO W/O SCOPE 28270 Ketones neg DateTime(Free Text in Aprima) URINALYSIS NONAUTO W/O SCOPE 87939 Urobilinogen neg DateTime(Free Text in Aprima) URINALYSIS NONAUTO W/O SCOPE 23401 Nitrite neg DateTime(Free Text in Aprima) URINALYSIS NONAUTO W/O SCOPE 16524 Leukocytes neg DateTime(Free Text in Aprima) UA 38531 Specific [place] 1.030 DateTime(Free Text in Aprima) UA 42231 PH 5 DateTime(Free Text in Aprima) UA 31382 GLUCOSE neg DateTime(Free Text in Aprima) UA 25712 Protein trace DateTime(Free Text in Aprima) UA 23533 Blood large DateTime(Free Text in Aprima) UA 99068 Bilirubin neg DateTime(Free Text in Aprima) UA 06854 Ketones neg DateTime(Free Text in Aprima) UA 30265 Urobilinogen neg DateTime(Free Text in Aprima) UA 43984 Nitrite neg DateTime(Free Text in Aprima) UA 59161 Leukocytes large DateTime(Free Text in Aprima) Review [...] time 03/19/2015 None Full Exam - General [facility] Psychiatric appearance Overall: well-groomed, good eye contact [...] developed 09/19/2013 None Full Exam - General 1995 Constitutional [...] Procedure Codes Date DESTRUCT PREMALG LESION CPT-4: 05931Obtucmj 12/05/2016 DESTRUCT PREMALG LES 2-14 CPT-4: 45031Ccamsuf 12/05/2016 URINALYSIS NONAUTO W/O SCOPE CPT-4: 72270Famxnqr 11/28/2016 ROCEPHIN, PER 250 MG CPT-4: X8341Nijfmrh 11/28/2016 PPPS, SUBSEQ VISIT CPT-4: F7189Uxthuoo 11/07/2016 THER/PROPH/DIAG INJ SC/IM CPT-4: 22531Auubpwo 11/07/2016 TRIAMCINOLONE ACET INJ NOS CPT-4: Z1264Dgybcmh 11/07/2016 ROCEPHIN, PER 250 MG CPT-4: I5854Qfnpsat 11/07/2016 THER/PROPH/DIAG INJ SC/IM CPT-4: 87562Lexsurg 08/15/2016 TRIAMCINOLONE ACET INJ NOS CPT-4: H7814Ptekhrp 08/15/2016 ROCEPHIN, PER 250 MG CPT-4: L7450Xogobsn 08/15/2016 URINALYSIS NONAUTO W/O SCOPE CPT-4: 46790Fdosdqz 05/05/2016 ROCEPHIN, PER 250 MG CPT-4: P2769Zztbhfy 12/07/2015 TRIAMCINOLONE ACET INJ NOS CPT-4: V1352Betqjpa 11/24/2015 ROCEPHIN, PER 250 MG CPT-4: M0412Wvuvnyl 11/24/2015 THER/PROPH/DIAG INJ SC/IM CPT-4: 22290Phzjkdg 11/24/2015 THER/PROPH/DIAG INJ SC/IM CPT-4: 40199Qgvfpoo 08/27/2015 KETOROLAC TROMETHAMINE INJ CPT-4: A9834Uzxletl 08/27/2015 PROMETHAZINE HCL INJECTION CPT-4: I8306Mpetvhj 08/27/2015 THER/PROPH/DIAG INJ SC/IM CPT-4: 21358Xgiotca 08/10/2015 TRIAMCINOLONE ACET INJ NOS CPT-4: F0710Muezbma 08/10/2015 ROCEPHIN, PER 250 MG CPT-4: Q2495Rrfasrf 08/10/2015 C WOUN RTS (CULTURE OTHR SPECIMN AEROBIC) CPT-4: 12982Hwaxtue 07/28/2015 THER/PROPH/DIAG INJ SC/IM CPT-4: 24799Ptqxepo 03/19/2015 TRIAMCINOLONE ACET INJ NOS CPT-4: V9255Osjqlku 03/19/2015 ROCEPHIN, PER 250 MG CPT-4: J4896Ksxclew 06/23/2014 TRIAMCINOLONE ACET INJ NOS CPT-4: N0228Tswnfbt 06/23/2014 INJ TRIGGER POINT 1/2 MUSCL CPT-4: 34204Mugfrhr 06/05/2014 URINALYSIS NONAUTO W/O SCOPE CPT-4: 86233Ixcnclz 02/11/2014 URINALYSIS NONAUTO W/O SCOPE CPT-4: 43756Kflnmqm 10/15/2013 ROCEPHIN, PER 250 MG CPT-4: H2203Wzuzubo 09/24/2013 THER/PROPH/DIAG INJ SC/IM CPT-4: 23381Nenumuw 09/19/2013 ROCEPHIN, PER 250 MG CPT-4: K7865Zowerth 09/19/2013 PRESCRIP TRANSMIT VIA ERX SY CPT-4: Q2327Ynmvmzr 08/05/2013 ROCEPHIN, PER 250 MG CPT-4: X1371Xcslknn 07/10/2013 THER/PROPH/DIAG INJ SC/IM CPT-4: 08652Oemedmy 07/10/2013 TRIAMCINOLONE ACET INJ NOS CPT-4: T4027Wzwmffu 07/10/2013 PRESCRIP TRANSMIT VIA ERX SY CPT-4: J0041Dhdssve 07/10/2013 99710 EST. PATIENT, LEVEL III CPT-4: 06875Yferbwa 06/03/2013 PRESCRIP TRANSMIT VIA ERX SY CPT-4: U0572Trgajux 06/03/2013 PRESCRIP TRANSMIT VIA ERX SY CPT-4: E9240Oswewdp 05/07/2013 ROUTINE VENIPUNCTURE CPT-4: 83805Khzijhb 04/30/2013 ROUTINE VENIPUNCTURE CPT-4: 59524Neqjkjn 11/29/2012 TRIAMCINOLONE ACET INJ NOS CPT-4: A5421Mggccen 09/24/2012 THER/PROPH/DIAG INJ SC/IM CPT-4: 90608Sozknre 09/24/2012 URINALYSIS NONAUTO W/O SCOPE CPT-4: 52886Yhgfcsh 09/24/2012 PRESCRIP TRANSMIT VIA ERX SY CPT-4: G4367Xplpdae 09/24/2012 PRESCRIP TRANSMIT VIA ERX SY CPT-4: F0748Uylpzfd 09/10/2012 PRESCRIP TRANSMIT VIA ERX SY CPT-4: P1612Krumtcu 08/08/2012 ROUTINE VENIPUNCTURE CPT-4: 76107Ifyxynf 08/07/2012 ROUTINE VENIPUNCTURE CPT-4: 50306Fsmhazj 02/16/2012 URINALYSIS NONAUTO W/O SCOPE CPT-4: 99817Djatzcf 02/15/2012 ROCEPHIN, PER 250 MG CPT-4: Q4887Dlmaqlb 02/15/2012 PRESCRIP TRANSMIT VIA ERX SY CPT-4: P4336Dzwsdre 02/15/2012 ROUTINE VENIPUNCTURE CPT-4: 60063Trxkmro 11/08/2011 ROCEPHIN, PER 250 MG CPT-4: H2363Gdbtzag 07/14/2011 THER/PROPH/DIAG INJ SC/IM CPT-4: 54392Jafshhn 07/14/2011 Influenza Virus Vaccine, Split Virus, >3 Yrs, IM CPT-4: 08856Jjfjbwk 05/23/2011 IMMUNIZATION ADMIN CPT-4: 18281Matnqdh 05/23/2011 THER/PROPH/DIAG INJ SC/IM CPT-4: 90087Fywkdhb 05/03/2011 ROCEPHIN, PER 250 MG CPT-4: X2577Dfahvbz 05/03/2011 TRIAMCINOLONE ACET INJ NOS CPT-4: M3616Nwotumu 05/03/2011 Vital Signs Date Vital 02/20/2017 Blood Pressure 1: 142/80 Code: 8480-6 BMI: 30.9 Code: 80601-9 Heart Rate 1: 75 bpm Height: 4'11" SpO2: 97% Weight: 153 lbs 02/06/2017 Blood Pressure 1: 138/90 Code: 8480-6 BMI: 31.5 Code: 72986-0 Heart Rate 1: 61 bpm Height: 4'11" SpO2: 98% Weight: 156 lbs 12/05/2016 Blood Pressure 1: 122/72 Code: 8480-6 Heart Rate 1: 59 bpm Height: 4'11" SpO2: 98% Weight: 11/28/2016 Blood Pressure 1: 154/86 Code: 8480-6 BMI: 31.3 Code: 75503-5 Heart Rate 1: 64 bpm Height: 4'11" SpO2: 94% Temperature: 36.2 (C) / 97.2 (F) Weight: 155 lbs 11/07/2016 Blood Pressure 1: 128/64 Code: 8480-6 BMI: 31.5 Code: 91853-8 Heart Rate 1: 59 bpm Height: 4'11" SpO2: 97% Weight: 156 lbs 08/15/2016 Blood Pressure 1: 110/62 Code: 8480-6 BMI: 31.5 Code: 02115-4 Heart Rate 1: 76 bpm Height: 4'11" SpO2: 97% Weight: 156 lbs 06/07/2016 Blood Pressure 1: 120/80 Code: 8480-6 BMI: 32.9 Code: 69154-7 Heart Rate 1: 63 bpm Height: 4'11" SpO2: 93% Temperature: 36.5 (C) / 97.7 (F) Weight: 163 lbs 03/15/2016 Blood Pressure 1: 90/42 Code: 8480-6 Heart Rate 1: 65 bpm SpO2: 94% 03/14/2016 Blood Pressure 1: 188/110 Code: 8480-6 Heart Rate 1: 68 bpm SpO2: 96% 02/22/2016 Blood Pressure 1: 158/80 Code: 8480-6 BMI: 32.7 Code: 89036-5 Heart Rate 1: 71 bpm Height: 4'11" SpO2: 95% Weight: 162 lbs 12/07/2015 Blood Pressure 1: 140/88 Code: 8480-6 BMI: 32.9 Code: 31784-1 Heart Rate 1: 99 bpm Height: 4'11" SpO2: 94% Temperature: 35.9 (C) / 96.6 (F) Weight: 163 lbs 11/24/2015 Blood Pressure 1: 144/78 Code: 8480-6 BMI: 33.7 Code: 30825-0 Heart Rate 1: 60 bpm Height: 4'11" SpO2: 98% Temperature: 36.6 (C) / 97.9 (F) Weight: 167 lbs 08/27/2015 Blood Pressure 1: 164/82 Code: 8480-6 BMI: 32.3 Code: 66907-4 Heart Rate 1: 60 bpm Height: 4'11" SpO2: 93% Weight: 160 lbs 08/10/2015 Blood Pressure 1: 130/60 Code: 8480-6 BMI: 32.5 Code: 65708-7 Heart Rate 1: 64 bpm Height: 4'11" SpO2: 97% Weight: 161 lbs 07/28/2015 Blood Pressure 1: 124/68 Code: 8480-6 BMI: 32.5 Code: 33892-2 Heart Rate 1: 69 bpm Height: 4'11" SpO2: 97% Weight: 161 lbs 06/11/2015 Blood Pressure 1: 148/80 Code: 8480-6 BMI: 32.9 Code: 97225-6 Heart Rate 1: 70 bpm Height: 4'11" SpO2: 94% Weight: 163 lbs 03/19/2015 Blood Pressure 1: 150/102 Code: 8480-6 Blood Pressure 2: 152/92 Code: 8480-6 BMI: 32.5 Code: 97765-6 Heart Rate 1: 71 bpm Height: 4'11" SpO2: 96% Weight: 161 lbs 01/07/2015 Blood Pressure 1: 126/84 Code: 8480-6 Heart Rate 1: 80 bpm Height: 4'11" 09/23/2014 Blood Pressure 1: 112/72 Code: 8480-6 BMI: 33.9 Code: 28635-9 Heart Rate 1: 72 bpm Height: 4'11" Weight: 168 lbs 08/05/2014 Blood Pressure 1: 140/86 Code: 8480-6 BMI: 33.3 Code: 42757-1 Height: 4'11" Weight: 165 lbs 06/23/2014 Blood Pressure 1: 132/70 Code: 8480-6 BMI: 32.9 Code: 97707-1 Heart Rate 1: 58 bpm Height: 4'11" Temperature: 36.0 (C) / 96.8 (F) Weight: 163 lbs 06/05/2014 Blood Pressure 1: 121/85 Code: 8480-6 BMI: 34.3 Code: 56844-2 Height: 4'11" Weight: 170 lbs 04/03/2014 Blood Pressure 1: 128/80 Code: 8480-6 Heart Rate 1: 88 bpm Weight: 167 lbs 03/07/2014 Blood Pressure 1: 122/82 Code: 8480-6 BMI: 33.9 Code: 30543-5 Heart Rate 1: 68 bpm Height: 4'11" Weight: 168 lbs 11/21/2013 Blood Pressure 1: 100/58 Code: 8480-6 BMI: 33.7 Code: 84655-9 Heart Rate 1: 64 bpm Height: 4'11" Weight: 167 lbs 09/24/2013 Blood Pressure 1: 148/88 Code: 8480-6 Heart Rate 1: 68 bpm Weight: 09/19/2013 Blood Pressure 1: 120/80 Code: 8480-6 BMI: 33.9 Code: 50865-5 Heart Rate 1: 80 bpm Height: 4'11" Temperature: 36.9 (C) / 98.5 (F) Weight: 168 lbs 08/05/2013 Blood Pressure 1: 128/80 Code: 8480-6 BMI: 34.3 Code: 37542-3 Heart Rate 1: 64 bpm Height: 4'11" Temperature: 36.2 (C) / 97.2 (F) Weight: 170 lbs 07/10/2013 Blood Pressure 1: 120/84 Code: 8480-6 BMI: 36.0 Code: 48694-2 Heart Rate 1: 90 bpm Height: 4'11" SpO2: 97% Temperature: 36.8 (C) / 98.2 (F) Weight: 178 lbs 06/03/2013 Blood Pressure 1: 136/94 Code: 8480-6 BMI: 34.7 Code: 82983-5 Heart Rate 1: 68 bpm Height: 4'11" Temperature: 36.7 (C) / 98.0 (F) Weight: 172 lbs 05/13/2013 Blood Pressure 1: 132/90 Code: 8480-6 Heart Rate 1: 68 bpm 05/07/2013 Blood Pressure 1: 168/100 Code: 8480-6 BMI: 34.3 Code: 04083-6 Heart Rate 1: 76 bpm Height: 4'11" Weight: 170 lbs 12/03/2012 Blood Pressure 1: 142/78 Code: 8480-6 BMI: 33.5 Code: 76962-6 Heart Rate 1: 76 bpm Height: 4'11" Weight: 166 lbs 09/24/2012 Blood Pressure 1: 116/70 Code: 8480-6 Heart Rate 1: 68 bpm Respiratory Rate: 16 bpm Temperature: 36.9 (C) / 98.4 (F) Weight: 162 lbs 09/10/2012 Blood Pressure 1: 116/80 Code: 8480-6 BMI: 33.7 Code: 04407-4 Heart Rate 1: 76 bpm Height: 4'11" [...] 1: 149/85 Code: 8480-6 BMI: 32.9 Code: 75112-1 Heart Rate 1: 79 bpm Height: 4'11" Weight: 164 lbs 05/03/2011 Blood Pressure 1: 122/79 Code: 8480-6 BMI: 30.8 Code: 11413-3 Heart Rate 1: 72 bpm Height: 5'1" Weight: 163 lbs 04/25/2011 Blood Pressure 1: 137/84 Code: 8480-6 BMI: 31.0 Code: 26022-5 Heart Rate 1: 63 bpm Height: 5'1" [...] days ago 02/15/2012 while visiting mother in [place] had uti and was put on pyridum [...] surg in december. then took trip to [facility] to see mother and has [...] Quality chronic 08/01/2011 states went shopping on [employer] over night without taking any of medications [...] data Encounters Encounter Performer Location Codes Date 52355 EST. PATIENT, LEVEL IV Diagnosis: Epigastric pain[ICD10: R10.13] Diagnosis: Left upper quadrant pain[ICD10: R10.12] Diagnosis: Left lower quadrant pain[ICD10: R10.32] [facility] CPT-4: 98487 02/20/2017 ([id number]) 66648 EST. PATIENT, LEVEL IV Diagnosis: Generalized anxiety disorder[ICD10: F41.1] Diagnosis: Major depressive disorder, recurrent, moderate[ICD10: F33.1] Diagnosis: Left upper quadrant pain[ICD10: R10.12] Diagnosis: Epigastric pain[ICD10: R10.13] Diagnosis: Actinic keratosis[ICD10: L57.0] Melba Goldman MD [facility] CPT-4: 77982 02/06/2017 ([id number]) 08681 EST. PATIENT, LEVEL III Diagnosis: Actinic keratosis[ICD10: L57.0] Diagnosis: Major depressive disorder, recurrent, moderate[ICD10: F33.1] Melba Goldman MD [facility] CPT-4: 54202 12/05/2016 ([id number]) 13341 EST. PATIENT, LEVEL III Diagnosis: Acute recurrent maxillary sinusitis[ICD10: J01.01] Diagnosis: Dysuria[ICD10: R30.0] Shahida Goldman MD, [facility] CPT-4: 64355 11/28/2016 [id number] EST. PATIENT, LEVEL IV Diagnosis: Other acute sinusitis[ICD10: J01.80] Diagnosis: Acute laryngopharyngitis[ICD10: J06.0] Diagnosis: Other allergic rhinitis[ICD10: J30.89] Isabelle Goldman MD, [facility] CPT- 4: 75043 08/15/2016 ([id number]) 18484 EST. PATIENT, LEVEL III Diagnosis: Acute recurrent maxillary sinusitis[ICD10: J01.01] Diagnosis: Low back pain[ICD10: M54.5] Shahida Goldman MD, [facility] CPT-4: 21552 06/07/2016 ([id number]) Miscellaneous no charge Diagnosis: Essential (primary) hypertension[ICD10: I10] Shahida Goldman MD, [facility] CPT-4: 17960 03/15/2016 85469 EST. PATIENT, LEVEL IV Diagnosis: Essential (primary) hypertension[ICD10: I10] Diagnosis: Headache[ICD10: R51] Diagnosis: Generalized anxiety disorder[ICD10: F41.1] Shahida Goldman MD, [facility] CPT-4: 40237 03/14/2016 12479 EST. PATIENT, LEVEL III Diagnosis: Laceration without foreign body, left lower leg, initial encounter[ICD10: S81.812A] Isabelle Goldman MD, [facility] CPT-4: 62255 02/22/2016 ([id number]) 66884 EST. PATIENT, LEVEL III Diagnosis: Acute recurrent maxillary sinusitis[ICD10: J01.01] Diagnosis: Cough[ICD10: R05] Diagnosis: Allergic rhinitis due to pollen[ICD10: J30.1] Shahida Goldman MD, [facility] CPT-4: 31105 12/07/2015 ([id number]) 02731 EST. PATIENT, LEVEL IV Diagnosis: Essential (primary) hypertension[ICD10: I10] Diagnosis: Acute recurrent maxillary sinusitis[ICD10: J01.01] Diagnosis: Generalized anxiety disorder[ICD10: F41.1] Diagnosis: Cervicalgia[ICD10: M54.2] Diagnosis: Generalized intra-abdominal and pelvic swelling, mass and lump[ICD10: R19.07] Melba Goldman MD, [facility] CPT-4: 49833 11/24/2015 [id number] EST. PATIENT, LEVEL III Diagnosis: Other migraine, intractable, without status migrainosus[ICD10: G43.819] Isabelle Goldman MD, [facility] CPT-4: 49302 08/27/2015 96224 EST. PATIENT, LEVEL III Diagnosis: Acute recurrent maxillary sinusitis[ICD10: J01.01] Diagnosis: Candidal stomatitis[ICD10: B37.0] Diagnosis: Acute laryngopharyngitis[ICD10: J06.0] Isabelle Goldman MD, [facility] CPT- 4: 32878 08/10/2015 80344 EST. PATIENT, LEVEL III Diagnosis: Superficial foreign body of left hand, initial encounter[ICD10: S60.552A] Melba Goldman MD, [facility] CPT-4: 74383 07/28/2015 ([id number]) 13706 EST. PATIENT, LEVEL III Diagnosis: Essential (primary) hypertension[ICD10: I10] Diagnosis: Tinea cruris[ICD10: B35.6] Diagnosis: Abnormal levels of other serum enzymes[ICD10: R74.8] Shahida Goldman MD, [facility] CPT-4: 99262 06/11/2015 ([id number]) 56808 EST. PATIENT, LEVEL IV Diagnosis: ESSENTIAL HYPERTENSION[ICD9: 401.9] Diagnosis: Hypothyroid[ICD9: 244.9] Diagnosis: ALLERGIC RHINITIS[ICD9: 477.9] Diagnosis: Anxiety[ICD9: 300.00] Diagnosis: Sleep apnea[ICD9: 780.57] Shahida Goldman MD, [facility] CPT-4: 28169 03/19/2015 ([id number]) 82364 EST. PATIENT, LEVEL III Diagnosis: ACUTE SINUSITIS[ICD9: 461.9] Celi Arcossuhas Goldman MD, [facility] CPT-4: 35952 01/07/2015 ([id number]) 07788 EST. PATIENT, LEVEL III Diagnosis: Conjunctivitis[ICD9: 372.30] Shahida Goldman MD, [facility] CPT-4: 52242 09/23/2014 21378 EST. PATIENT, LEVEL II Diagnosis: Noninfected skin tear of leg[ICD9: 891.0] Shahida Goldman MD, [facility] CPT-4: 27843 08/05/2014 ([id number]) 77322 EST. PATIENT, LEVEL III Diagnosis: Chronic maxillary sinusitis[ICD9: 473.0] Shahida Goldman MD, [facility] CPT-4: 30084 06/23/2014 89450 EST. PATIENT, LEVEL II Diagnosis: Headache[ICD9: 784.0] Shahida Goldman MD, [facility] CPT-4: 92622 06/05/2014 ([id number]) 25268 EST. PATIENT, LEVEL III Diagnosis: Abrasion of right leg[ICD9: 916.0] Diagnosis: Headache[ICD9: 784.0] Diagnosis: ALLERGIC RHINITIS[ICD9: 477.9] Shahida Goldman MD, [facility] CPT-4: 63858 04/03/2014 95408 EST. PATIENT, LEVEL II Diagnosis: Tinea corporis[ICD9: 110.5] Diagnosis: Exposure to scabies[ICD9: V01.89] Shahida Goldman MD, [facility] CPT- 4: 61503 03/07/2014 ([id number]) 22174 EST. PATIENT, LEVEL III Diagnosis: ESSENTIAL HYPERTENSION[SNOMED: [id number]] Diagnosis: OSTEOARTH NOS-UNSPEC[ICD9: 715.90] Diagnosis: Lumbago[ICD9: 724.2] Diagnosis: Cervicalgia[ICD9: 723.1] Shahida Goldman MD, [facility] CPT-4: 78990 11/21/2013 ([id number]) 30161 EST. PATIENT, LEVEL III Diagnosis: DEPRESSIVE DISORDER NEC[ICD9: 311] Diagnosis: Paronychia[ICD9: 681.9] Melba Goldman MD, [facility] CPT-4: 82674 09/24/2013 ([id number]) 97405 EST. PATIENT, LEVEL III Diagnosis: Paronychia[ICD9: 681.9] Diagnosis: Cellulitis[ICD9: 682.9] Melba Goldman MD, [facility] CPT-4: 52380 09/19/2013 ([id number]) 50458 EST. PATIENT, LEVEL III Diagnosis: Conjunctivitis[ICD9: 372.30] Diagnosis: Thrush[ICD9: 112.0] Shahida Goldman MD, [facility] CPT-4: 20789 08/05/2013 ([id number]) 07914 EST. PATIENT, LEVEL III Diagnosis: ACUTE MAXILLARY SINUSITIS[ICD9: 461.0] Diagnosis: COUGH[ICD9: 786.2] Diagnosis: Insomnia[ICD9: 780.52] Diagnosis: ESOPHAGEAL REFLUX[ICD9: 530.81] Melba Goldman MD, [facility] CPT-4: 03114 07/10/2013 ([id number]) Miscellaneous no charge Diagnosis: ESSENTIAL HYPERTENSION[SNOMED: 75564838] Melba Goldman MD, [facility] CPT-4: 35174 05/13/2013 ([id number]) 41395 EST. PATIENT, LEVEL IV Diagnosis: ESSENTIAL HYPERTENSION[SNOMED: 58774067] Diagnosis: HYPOTHYROIDISM[ICD9: 244.9] Diagnosis: OSTEOARTH NOS-UNSPEC[ICD9: 715.90] Melba Goldman MD, [facility] CPT- 4: 03308 05/07/2013 ([id number]) 58865 EST. PATIENT, LEVEL IV Diagnosis: Osteoarthritis[ICD9: 715.90] Diagnosis: Knee pain, bilateral[ICD9: 719.46] Diagnosis: Hip pain[ICD9: 719.45] Melba Goldman MD, [facility] CPT-4: 05571 12/03/2012 ([id number]) 53237 EST. PATIENT, LEVEL III Diagnosis: Thrush[ICD9: 112.0] Melba Goldman MD [facility] CPT-4: 41407 09/24/2012 ([id number]) 56384 EST. PATIENT, LEVEL IV Diagnosis: ESSENTIAL HYPERTENSION[SNOMED: 44525602] Diagnosis: Thrush[ICD9: 112.0] Diagnosis: Sleep apnea[ICD9: 780.57] Melba Goldman MD, [facility] CPT-4: 37925 09/10/2012 ([id number]) 22980 EST. PATIENT, LEVEL IV Diagnosis: Esophageal reflux[ICD9: 530.81] Diagnosis: Hypothyroid[ICD9: 244.9] Diagnosis: JOINT PAIN-MULT JOINTS[ICD9: 719.49] Diagnosis: ALLERGIC RHINITIS[ICD9: 477.9] Melba Goldman MD [facility] CPT-4: 09058 08/08/2012 ([id number]) 68857 EST. PATIENT, LEVEL IV Diagnosis: Urinary frequency[ICD9: 788.41] Diagnosis: EDEMA[ICD9: 782.3] Diagnosis: HYPOTHYROIDISM[ICD9: 244.9] Diagnosis: Fatigue[ICD9: 780.79] Melba Goldman MD, [facility] CPT-4: 65740 02/15/2012 ([id number]) 34885 EST. PATIENT, LEVEL IV Diagnosis: Abdominal pain[ICD9: 789.00] Diagnosis: Fatigue[ICD9: 780.79] Diagnosis: Nausea[ICD9: 787.02] Melba Goldman MD, [facility] CPT-4: 97748 11/10/2011 81924 EST. PATIENT, LEVEL IV Diagnosis: ESSENTIAL HYPERTENSION[SNOMED: 84253295] Diagnosis: DIARRHEA[ICD9: 787.91] Diagnosis: DEPRESSIVE DISORDER NEC[ICD9: 311] Diagnosis: Irritable bowel disease[ICD9: 564.1] Melba Goldman MD, [facility] CPT- 4: 75533 08/01/2011 48846 EST. PATIENT, LEVEL III Diagnosis: ACUTE SINUSITIS[ICD9: 461.9] Diagnosis: Cough[ICD9: 786.2] Shahida Goldman MD, [facility] CPT-4: 98823 07/14/2011 29930 EST. PATIENT, LEVEL IV Diagnosis: VACCIN FOR INFLUENZA[ICD9: V04.81] Diagnosis: ESSENTIAL HYPERTENSION[SNOMED: 57271468] Diagnosis: GENERALIZED ANXIETY DISEASE[ICD9: 300.02] Diagnosis: SLEEP DISTURBANCES[ICD9: 780.50] Shahida Goldman MD, [facility] CPT- 4: 99441 05/23/2011 14054 EST. PATIENT, LEVEL III Diagnosis: ACUTE SINUSITIS[ICD9: 461.9] Diagnosis: ALLERGIC RHINITIS[ICD9: 477.9] Diagnosis: Cough[ICD9: 786.2] Shahida Goldman MD, [facility] CPT-4: 91726 05/03/2011 66807 EST. PATIENT, LEVEL IV Diagnosis: ESSENTIAL HYPERTENSION[SNOMED: 37230880] Diagnosis: DEPRESSIVE DISORDER NEC[ICD9: 311] Diagnosis: Fatigue[ICD9: 780.79] Shahida Goldman MD, [facility] CPT-4: 17037 04/25/2011 Plan of Care Planned Activity Notes Codes Status Date Appointment: Shahida Manzo WPtel: [phone] (15 min) Moderate 02/21/2017 Visit [...] not improving. 02/20/2017 Appointment: Isabelle Orozco [facility]Pt[facility]: [facility] (30 min) Complex 02/20/2017 Patient Education: [...] use 02/06/2017 Appointment: Melba Goldman WPtel: [phone] [facility] (15 min) Moderate 02/06/2017 Patient Education: Patient [...] 12/05/2016 [facility]ment[phone] [facility] 12/05/2016 Patient Education: Patient Medication Summary Completed 12/05/2016 Visit Plan: Sinusitis - Pt has acute infection - pain in face, maxillary region, Pt informed to use decongestant, RX given to patient, sinus rinses also recommended. Call if symptoms do not show improvement.Dysuria-culture urine 11/28/2016 Appointment: Shahida Manzo WPtel: [phone] [phone] (15 min) Moderate 11/28/2016 Patient Education: [...] 11/07/2016 Appointment: Isabelle Orozco WPtel: [phone] [facility] [facility] - Annual Wellness Visit 11/07/2016 Patient Education: [...] allergy spray. 08/15/2016 Appointment: [phone] (15 min) Moderate 08/15/2016 Patient Education: [...] use. 06/07/2016 Appointment: [phone] (10 min) Simple 06/07/2016 Patient Education: [...] today 03/14/2016 Appointment: Shahida Manzo WPtel: [phone] [phone] (15 min) Moderate 03/14/2016 Patient Education: Patient Medication Summary Completed 03/14/2016 Care Plan: COMPLETE CBC AUTOMATED LOINC : 00558-9 Pending 03/14/2016 Visit Plan: Cellulitis - The patient was instructed in appropriate wound care. The patient was instructed to use the antibiotic ointment as per RX. The patient is to call for any change in symptoms, increase in size of the lesion, increase in pain. 02/22/2016 Appointment: [phone] (15 min) Moderate 02/22/2016 Patient Education: [...] medications unchanged.colonoscopy with dr. dai 11/24/2015 Appointment: Sus[phone] (30 min) Complex 11/24/2015 Patient Education: Patient Medication Summary Completed 11/24/2015 Patient Education: Obesity Completed 11/24/2015 Patient Education: Hypertension Completed 11/24/2015 Patient Education: .Cervicalgia Neck Pain Completed 11/24/2015 Care Plan: Referral Order SNOMED-CT : [id number] Ordered 11/24/2015 Visit Plan: Acute Migraine - [...] to monitor 06/11/2015 Appointment: Shahida Manzo WPtel: [address] [place], [place] [phone] (15 min) Moderate 06/11/2015 Patient Education: Patient [...] OFFICE Sleep apnea-patient needs new CPAP-will contact [facility] [place] patient Pt reports that she uses her [...] OFFICE Sleep apnea-patient needs new CPAP-will contact [facility] patient Pt reports that she uses [...] OFFICE Sleep apnea-patient needs new CPAP-will contact [facility] [place] patient 03/19/2015 Appointment: (15 min) Moderate 03/19/2015 [...] Patient Medication Summary Completed 01/07/2015 Patient Education: [facility] - Saving AutoInj - 18+ - [...] Keep areas dryExposure to scabies-RX sent to [facility]. 03/07/2014 Appointment: Melba Goldman WPtel: [facility]5 [facility] [place] rash 03/07/2014 Patient Education: Patient Medication [...] about change in blood pressure readings at home.Qzzfuxv-begjphjhyyh-ayzfkyiy duragesic patch-appt with Dr Ortiz for pain management 11/21/2013 Appointment: Shahida Manzo WPtel: [phone] Follow up 11/21/2013 Patient Education: Patient Medication Summary Completed 11/21/2013 Patient Education: Hypertension Completed 11/21/2013 Patient Education: .Cervicalgia Neck Pain Completed 11/21/2013 Appointment: Melba Goldman WPtel: [facility] Other 11/19/2013 Appointment: Melba Goldman WPtel: [address] [place] [address] Follow up 11/06/2013 Appointment: Melba Goldman WPtel: [address] [place] [address] Lab Draw 10/15/2013 Patient Education: Patient Medication [...] AT BEDTIME 09/24/2013 Appointment: Shahida Manzo WPtel: [address] [place], [place] [phone] [place] [address] Other 09/24/2013 Patient Education: Patient Medication Summary Completed 09/24/2013 Visit Plan: Paronychia/Cellulitis - continue with oral antibiotics as previously directed, return to clinic as previously directed, call for acute change in symptoms, worsening redness, warmth, discharge. 09/19/2013 Appointment: Melba Goldman WPtel: [address] [place] [address] Other 09/19/2013 Patient Education: Patient Medication Summary Completed 09/19/2013 Visit Plan: Conjunctivitis - rx for eye drops/lube sent electronically to the patient's pharmacy. The patient has been instructed to cleanse affected eye with warm washcloth, then place medication into affected eye four times daily.Thrush- refill nystatin-call if symptoms do not resolve 08/05/2013 Appointment: Shahida Manzo WPtel: [address] [place], [place] [phone] Sick 08/05/2013 Patient Education: Patient Medication Summary [...] improvement. 06/03/2013 Appointment: [phone] Follow up 06/03/2013 Patient Education: Patient Medication Summary Completed 06/03/2013 Patient Education: Hypertension Completed 06/03/2013 Appointment: Melba Goldman WPtel: [phone] [place] [phone] [place] Nurse Visit 05/13/2013 Patient Education: Patient [...] control. 05/07/2013 Appointment: Melba Goldman WPtel: [phone] [facility] Follow up 05/07/2013 Patient Education: Patient Medication Summary Completed 05/07/2013 Patient Education: Hypertension Completed 05/07/2013 Patient Education: Patient Medication Summary Completed 04/30/2013 Patient Education: Hypertension Completed 04/30/2013 Visit Plan: Arthritis- occasionally uncontrolled symptoms- recommend pt to take antiinflammatory as directed for pain control.Use tylenol for break through pain symptoms. 12/03/2012 Appointment: [facility]el[phone] Follow up 12/03/2012 Patient Education: Patient [...] not resolve 09/24/2012 Appointment: Shahida [phone] Sick 09/24/2012 Patient Education: Patient Medication Summary [...] diflucan 09/10/2012 Appointment: [phone] Follow up 09/10/2012 Patient Education: Patient [...] symptoms. 08/08/2012 Appointment: Shah[phone] Follow up 08/08/2012 Patient Education: Patient Medication Summary Completed 08/08/2012 Patient Education: Patient Medication Summary Completed 08/07/2012 Patient Education: Hypertension Completed 08/07/2012 Appointment: Melba Goldman WPtel: [address] [place], [place] [phone] Lab Draw 02/16/2012 Patient Education: Patient Medication [...] Needs labs. 02/15/2012 Appointment: Melba Goldman WPtel: [address] [place], [place] [phone] Other 02/15/2012 Patient Education: Patient Medication Summary Completed 02/15/2012 Visit Plan: Abdominal pain - ultrasound tomorrow AMnothing to eat before the ultrasound from 11pm tonight bland diet.Nausea - worse with fatty foods, recommended low fat/bland diet, call if symptoms worsening. 11/10/2011 Appointment: Melba Goldman WPtel: [address] [place], [place] [phone] Other 11/10/2011 Patient Education: Patient Medication Summary [...] stools. 08/01/2011 Appointment: Melba Goldman WPtel: [phone] [facility] [place] Other 08/01/2011 Patient Education: Patient Medication Summary Completed 08/01/2011 Patient Education: High Blood Pressure: Essential Hypertension Completed 08/01/2011 Visit Plan: Sinusitis - Pt has acute infection - pain in face, maxillary region, Pt informed to use decongestant, RX given to patient, sinus rinses also recommended. Call if symptoms do not show improvement. Cough-domsalon parminder 07/14/2011 Appointment: Shahida Manzo WPtel: [phone] [phone] Other 07/14/2011 Patient Education: Patient [...] office. 05/23/2011 Appointment: Shahida Manzo WPtel: [phone] [phone] [place] Other 05/23/2011 Patient Education: Patient [...] cough med 05/03/2011 Appointment: Shahida Manzo WPtel: [phone] [place] Other 05/03/2011 Patient Education: Patient [...] her symptoms. 04/25/2011 Appointment: Shahida Manzo WPtel: [phone] Other 04/25/2011 Patient Education: Patient Medication Summary Completed 04/25/2011 Referral: Matthew Dai Referral Appointment Requested Referral: Matthew Dai Information faxed to Dr. Dai. Their office to book. Patient informed. Completed Instructions Comment TAPER OFF OF CYMBALTA-TAKE EVERY OTHER DAY [...] spray. KENALOG INJECTION TODAY IN THE OFFICE . Skin tear of left and right [...] bleeding. Patient verbalized understandig of plan. . DX sinusitis - discussed expected course [...] provided for patient. Cough-refill cough med . Medicare Exam - today we discussed [...] months based on previous levels of control. TAPER OFF OF CYMBALTA-TAKE EVERY OTHER DAY [...] OFFICE Sleep apnea-patient needs new CPAP-will contact [facility] Pt reports that she uses [...] office if the symptoms are not improving. TAKE A PROBIOTIC TWICE DAILY WHILE ON THE ANTIBIOTIC . Sinusitis - chronic - pain in face, maxillary region, Pt informed to use decongestant, RX given to patient, sinus rinses also recommended. Call if symptoms do not show improvement. . Paronychia/Cellulitis - continue with oral antibiotics as previously directed, return to clinic as previously directed, call for acute change in symptoms, worsening redness, warmth, discharge. . Wound Instructions - Pt was instructed [...] been appropriately prescribed for this patient. . Arthritis- occasionally uncontrolled symptoms- recommend pt to take antiinflammatory as directed for pain control. Use tylenol for break through pain symptoms. TAPER OFF OF CYMBALTA-TAKE EVERY OTHER DAY [...] OFFICE Sleep apnea-patient needs new CPAP-will contact [facility] Pt reports that she uses her CPAP and feels like she gets benefit from use of her CPAP with improved energy. . Hypertension - well controlled - continue [...] fitted lindsay. Thrush- treating with diflucan . Abrasion right leg-RX for keflex Headache-much improved-monitor and call if does not resolve Allergies-continue medications and call if symptoms do not improve, or if any worse. . Abdominal pain - ultrasound tomorrow AM nothing to eat before the ultrasound from 11pm tonight bland diet. Nausea - worse with fatty foods, recommended low fat/bland diet, call if symptoms worsening. . Wound Instructions - Pt was instructed [...] efudex - pt instructed on use . HTN-improved today-no change in medications Tinea-start clotrimazole and diflucan Elevated ALT-check labs today to monitor . Hypertension - uncontrolled - the patient's [...] if symptoms do not show improvement. . Acute Migraine - pt has chronic migraine headaches, but comes into clinic today complaining of intractable migraine headache symptoms. I have recommended changes to the chronic symptoms management and the pt has been given the following acute treatment in clinic today: . UTI - pt with positive urinalysis [...] patient. ADD ABILIFY 2MG AT BEDTIME . Sinusitis - Pt has acute infection [...] in the nasal steroid allergy spray. . Pt complains of a splinter in [...] if they worsen, or with other concerns. TAPER OFF OF CYMBALTA-TAKE EVERY OTHER DAY [...] OFFICE Sleep apnea-patient needs new CPAP-will contact [facility] . Tinea-discussed natural and expected course of this diagnosis and to alert me if symtpoms do not follow expect course, or if any worse. RX sent to patient's pharmacy. Keep areas dry [facility] . Conjunctivitis - rx for eye drops/lube [...] pharmacy per pt request. . Hypertension - well controlled - continue with current medications, continue with no added salt diet. Pt has been encouraged to exercise daily. The pt has been advised to call the office if there are any acute concerns about change in blood pressure readings at home. Qbgtpun-fmagundlbzu-qrfviekf duragesic patch-appt with Dr Ortiz for pain [...] months based on previous levels of control. Edarbi 40mg daily Labs now EKG . [...] 40mg daily-dose given in the office today ROCEPHIN 500 MG IM AUGMENTIN PO 875 [...]
--- OUTSIDE RECORDS SUMMARY | 2019-03-08 13:25 | XMS REPORT | CCD ---
Author Author [facility] Address [address] [place] [address] Phone Care Team Providers Care Machine Striper Name Role Phone PP Unavailable CCM Unavailable Summary Purpose Interface Exchange Insurance Providers Payer name Policy type / Coverage type Covered constitution party ID Effective Begin Date Effective End Date [employer] Medicare Part B [id number] Unknown Family history Son Diagnosis Age At Onset Crohn's disease Unknown Brother Diagnosis Age At Onset Cardiovascular disease Unknown Mother Diagnosis Age At Onset Hypertension Unknown Father Diagnosis Age At Onset Cardiovascular disease Unknown Social History Social History Element Codes Description Effective Dates Marital status Unknown 04/22/2011 Number of children Unknown 3 1 son -Crohns 04/22/[address]: 238873411 Nonsmoker 04/22/2011 Allergies, Adverse Reactions, Alerts Allergies, [...] Start Date Stop Date Status Fill Instructions Flagyl 500 mg tablet RxNorm: 418947 1 Tablet(s) PO TID 02/20/2017 03/01/2017 Active promethazine 25 mg tablet RxNorm: 043395 1 Tablet(s) PO TID as needed nausea 02/20/2017 03/01/2017 Active Cipro 500 mg tablet RxNorm: 866411 1 Tablet(s) PO BID 02/20/2017 03/01/2017 Active Flagyl 500 mg tablet RxNorm: 952592 1 Tablet(s) PO TID 02/09/2017 02/15/2017 Inactive Trintellix 10 mg tablet RxNorm: 9175352 1 Tablet(s) PO QAM 02/06/2017 03/07/2017 Active Efudex 5 % topical cream RxNorm: 241005 1 Application TOP BID use on skin spot on nose 02/06/2017 02/15/2017 Inactive Bystolic 10 mg tablet RxNorm: 010327 TAKE ONE TABLET BY MOUTH DAILY 02/03/2017 06/02/2017 Active Imitrex 50 mg tablet RxNorm: 609921 TAKE ONE TABLET BY MOUTH EVERY 8 HOURS NEEDED MAY REPEAT IN 1 HOUR OF INITIAL DOSE. DISCONTINUE FIORICET 12/22/2016 02/19/2017 Inactive Nexium 40 mg capsule,delayed release RxNorm: 500591 TAKE ONE CAPSULE BY MOUTH EVERY DAY 12/21/2016 09/16/2017 Active Lexapro 20 mg tablet RxNorm: 036513 Tablet(s) TAKE ONE TABLET BY MOUTH DAILY 12/05/2016 02/05/2017 Inactive hydrocodone 10 mg-acetaminophen 325 mg tablet RxNorm: 203435 Tablet(s) PO TAKE ONE TO TWO TABLETS BY MOUTH EVERY 6 HOURS NEEDED FOR PAIN 11/28/2016 No Stop Date Active (Appended: Controlled substance eRx refill - RxReferenceNumber: [id number]) Augmentin 875 mg-125 mg tablet RxNorm: 607502 1 Tablet(s) PO BID 11/28/2016 12/04/2016 Inactive ceftriaxone 500 mg solution for injection RxNorm: 0756325 1 Milliliter(s) Inj 11/28/2016 11/28/2016 Inactive prednisone 20 mg tablet RxNorm: 407936 2 Tablet(s) PO daily 11/28/2016 12/02/2016 Inactive Synthroid 100 mcg tablet RxNorm: 863505 1 Tablet(s) PO daily 11/21/2016 05/19/2017 Active Brand name only! trazodone 50 mg tablet RxNorm: 667041 TAKE 1 AND 1/2 TABLETS EVERY NIGHT AT BEDTIME , MAY INCREASE TO 2 TABLETS AT BEDTIME NEEDED 11/21/2016 02/16/2017 Inactive trazodone 50 mg tablet RxNorm: 493750 Tablet(s) TAKE 1 AND 1/2 TABLETS EVERY NIGHT AT BEDTIME , MAY INCREASE TO 2 TABLETS AT BEDTIME NEEDED 11/21/2016 11/20/2016 Inactive Synthroid 100 mcg tablet RxNorm: 082304 1 Tablet(s) PO daily TAKE ONE TABLET BY MOUTH DAILY 11/08/2016 11/20/2016 Inactive ceftriaxone 500 mg solution for injection RxNorm: 1592414 Inj 11/07/2016 11/07/2016 Inactive Kenalog 40 mg/mL suspension for injection RxNorm: 7540947 Milliliter(s) Inj 11/07/2016 11/07/2016 Inactive Xanax 0.25 mg tablet RxNorm: 768687 1 Tablet(s) PO daily as needed 10/31/2016 12/29/2016 Inactive alprazolam 0.25 mg tablet RxNorm: 347969 1 Tablet(s) PO daily as needed 10/21/2016 12/18/2016 Inactive (Response to an electronic controlled substance refill request - RxReferenceNumber: [id number]) hydrochlorothiazide 25 mg tablet RxNorm: 342948 TAKE ONE TABLET BY MOUTH DAILY 10/11/2016 04/08/2017 Active Xanax 0.25 mg tablet RxNorm: 202680 1 Tablet(s) PO daily as needed 08/23/2016 10/19/2016 Inactive Flonase Allergy Relief 50 mcg/actuation nasal spray,suspension RxNorm: 8527458 1 [place] NASAL daily 08/15/2016 No Stop Date Active amoxicillin 500 mg capsule RxNorm: 164224 1 Capsule(s) PO TID 08/15/2016 08/24/2016 Inactive Bystolic 10 mg tablet RxNorm: 222473 TAKE ONE TABLET BY MOUTH DAILY 08/01/2016 12/28/2016 Inactive trazodone 50 mg tablet RxNorm: 431926 TAKE 1 AND 1/2 TABLETS EVERY NIGHT AT BEDTIME , MAY INCREASE TO 2 TABLETS AT BEDTIME NEEDED 07/25/2016 11/11/2016 Inactive alprazolam 0.25 mg tablet RxNorm: 174740 1 Tablet(s) PO daily as needed 07/25/2016 08/22/2016 Inactive (Response to an electronic controlled substance refill request - RxReferenceNumber: [id number]) Imitrex 50 mg tablet RxNorm: 266515 1 Tablet(s) PO Q8 as needed may repeat x1 dose in 1 hour of inital dose. 07/13/2016 No Stop Date Active Lexapro 20 mg tablet RxNorm: 369540 TAKE 1/2 TABLET BY MOUTH DAILY FOR 10 DAYS, THEN TAKE ONE TABLET BY MOUTH DAILY 06/27/2016 11/23/2016 Inactive Synthroid 100 mcg tablet RxNorm: 776531 TAKE ONE TABLET BY MOUTH DAILY 06/20/2016 11/07/2016 Inactive Augmentin 500 mg-125 mg tablet RxNorm: 896545 1 Tablet(s) PO TID 06/07/2016 06/13/2016 Inactive hydrocodone 10 mg-acetaminophen 325 mg tablet RxNorm: 592765 Tablet(s) PO TAKE ONE TO TWO TABLETS BY MOUTH EVERY 6 HOURS NEEDED FOR PAIN 06/07/2016 11/27/2016 Inactive (Appended: Controlled substance eRx refill - RxReferenceNumber: [id number]) hydrochlorothiazide 25 mg tablet RxNorm: 064940 TAKE ONE TABLET BY MOUTH DAILY 03/14/2016 09/09/2016 Inactive Edarbi 40 mg tablet RxNorm: 2438314 1 Tablet(s) PO daily 03/14/2016 06/06/2016 Inactive trazodone 50 mg tablet RxNorm: 424156 Tablet(s) TAKE 1 AND 1/2 TABLET AT BEDTIME. MAY INCREASE TO 2 TABLETS IF NECESSARY 02/25/2016 07/05/2016 Inactive Imitrex 50 mg tablet RxNorm: 227151 1 Tablet(s) PO Q8 as needed may repeat x1 dose in 1 hour of inital dose. 02/25/2016 07/12/2016 Inactive dc fioricet Xanax 0.25 mg tablet RxNorm: 543978 1 Tablet(s) PO daily as needed 02/24/2016 07/21/2016 Inactive mupirocin 2 % topical ointment RxNorm: 913491 1 TOP BID 02/22/2016 No Stop Date Active Bactrim DS 800 mg-160 mg tablet RxNorm: 715365 1 Tablet(s) PO BID 02/22/2016 03/02/2016 Inactive Fioricet 50 mg-325 mg-40 mg tablet RxNorm: 320952 Tablet(s) TAKE ONE TABLET BY MOUTH EVERY 4 HOURS NEEDED FOR headache 02/12/2016 02/24/2016 Inactive (Response to an electronic controlled substance refill request - RxReferenceNumber: [id number]) Fioricet 50 mg-325 mg-40 mg tablet RxNorm: 484894 Tablet(s) TAKE ONE TABLET BY MOUTH EVERY 4 HOURS NEEDED FOR headache 02/12/2016 02/11/2016 Inactive (Response to an electronic controlled substance refill request - RxReferenceNumber: [id number]) Nexium 40 mg capsule,delayed release RxNorm: 363338 TAKE ONE CAPSULE BY MOUTH EVERY DAY 02/01/2016 10/27/2016 Inactive Bystolic 10 mg tablet RxNorm: 844786 Tablet(s) TAKE ONE TABLET BY MOUTH DAILY 01/06/2016 07/03/2016 Inactive Xanax 0.25 mg tablet RxNorm: 182165 1 Tablet(s) PO daily as needed 12/28/2015 02/23/2016 Inactive Levaquin 500 mg tablet RxNorm: 094805 1 Tablet(s) PO daily take a probiotic daily 12/14/2015 02/11/2016 Inactive Levaquin 500 mg tablet RxNorm: 546779 1 Tablet(s) PO daily take a probiotic daily 12/14/2015 12/13/2015 Inactive Phenergan with Codeine Syrup RxNorm: 5-10 Milliliter(s) PO Q6 PRN 12/07/2015 No Stop Date Active prednisone 20 mg tablet RxNorm: 550420 1 Tablet(s) PO BID 12/07/2015 12/13/2015 Inactive Augmentin 875 mg-125 mg tablet RxNorm: 106245 1 Tablet(s) PO BID 12/07/2015 12/13/2015 Inactive ceftriaxone 500 mg solution for injection RxNorm: 4342955 Inj 12/07/2015 12/07/2015 Inactive alprazolam 0.25 mg tablet RxNorm: 689303 1 Tablet(s) PO daily as needed 11/27/2015 12/25/2015 Inactive (Response to an electronic controlled substance refill request - RxReferenceNumber: [id number]) trazodone 50 mg tablet RxNorm: 606171 TAKE 1 AND 1/2 TABLET AT BEDTIME FOR 2 WEEKS, MAY INCREASE TO 2 TABLETS IF NECESSARY AFTER THAT 11/26/2015 02/24/2016 Inactive ceftriaxone 500 mg solution for injection RxNorm: 7098888 Milliliter(s) Inj 11/24/2015 11/24/2015 Inactive prednisone 10 mg tablet RxNorm: 309538 3 Tablet(s) PO daily 11/24/2015 11/28/2015 Inactive cefdinir 300 mg capsule RxNorm: 608211 1 Capsule(s) PO BID 11/24/2015 11/30/2015 Inactive Kenalog 40 mg/mL suspension for injection RxNorm: 6905171 1 Milliliter(s) Inj 11/24/2015 11/24/2015 Inactive Lexapro 20 mg tablet RxNorm: 650420 TAKE 1/2 TABLET BY MOUTH DAILY FOR 10 DAYS, THEN TAKE ONE TABLET BY MOUTH DAILY 11/23/2015 05/20/2016 Inactive Norvasc 10 mg tablet RxNorm: 235020 Tablet(s) PO TAKE ONE TABLET BY MOUTH EVERY DAY 10/26/2015 02/22/2016 Inactive Lipitor 10 mg tablet RxNorm: 846906 Tablet(s) TAKE ONE TABLET BY MOUTH EVERY DAY 10/26/2015 11/06/2016 Inactive hydrochlorothiazide 25 mg tablet RxNorm: 274473 TAKE ONE TABLET BY MOUTH DAILY 10/20/2015 01/17/2016 Inactive alprazolam 0.25 mg tablet RxNorm: 419236 1 Tablet(s) PO daily as needed 08/27/2015 11/22/2015 Inactive (Response to an electronic controlled substance refill request - RxReferenceNumber: [id number]) promethazine 25 mg/mL injection solution RxNorm: 415758 Milliliter(s) Inj 08/27/2015 08/27/2015 Inactive ketorolac 60 mg/2 mL intramuscular solution RxNorm: 714653 Milliliter(s) IM 08/27/2015 08/27/2015 Inactive Lexapro 20 mg tablet RxNorm: 889574 TAKE 1/2 TABLET BY MOUTH DAILY FOR 10 DAYS, THEN TAKE ONE TABLET BY MOUTH DAILY 08/13/2015 11/10/2015 Inactive Flonase 50 mcg/actuation nasal spray,suspension RxNorm: 795356 PLACE 1 SPRAY IN EACH NOSTRIL DAILY 08/13/2015 02/08/2016 Inactive Augmentin 500 mg-125 mg tablet RxNorm: 259807 1 Tablet(s) PO TID 08/10/2015 08/16/2015 Inactive Kenalog 40 mg/mL suspension for injection RxNorm: 6901767 Milliliter(s) Inj 08/10/2015 08/10/2015 Inactive ceftriaxone 500 mg solution for injection RxNorm: 7050412 Inj 08/10/2015 08/10/2015 Inactive nystatin 100,000 unit/mL oral suspension RxNorm: 456122 4 Milliliter(s) PO QID 08/10/2015 08/16/2015 Inactive trazodone 50 mg tablet RxNorm: 517529 TAKE 1 AND 1/2 TABLET AT BEDTIME FOR 2 WEEKS, MAY INCREASE TO 2 TABLETS IF NECESSARY AFTER THAT 07/31/2015 11/25/2015 Inactive ceftriaxone 500 mg solution for injection RxNorm: 6326621 1 Milliliter(s) Inj 07/28/2015 07/28/2015 Inactive Bactrim DS 800 mg-160 mg tablet RxNorm: 910390 1 Tablet(s) PO BID 07/28/2015 08/06/2015 Inactive Bactroban 2 % topical ointment RxNorm: 376630 1 Application TOP BID 07/28/2015 08/06/2015 Inactive Diflucan 150 mg tablet RxNorm: 409888 1 Tablet(s) PO daily 06/11/2015 06/17/2015 Inactive clotrimazole 1 % topical cream RxNorm: 246313 1 Application TOP BID 06/11/2015 07/10/2015 Inactive Bystolic 10 mg tablet RxNorm: 194495 TAKE ONE TABLET BY MOUTH DAILY 06/08/2015 12/04/2015 Inactive alprazolam 0.25 mg tablet RxNorm: 672210 1 Tablet(s) PO daily as needed 06/01/2015 08/25/2015 Inactive (Response to an electronic controlled substance refill request - RxReferenceNumber: [id number]) Fioricet 50 mg-325 mg-40 mg tablet RxNorm: 751935 Tablet(s) TAKE ONE TABLET BY MOUTH EVERY 4 HOURS NEEDED FOR headache 05/28/2015 06/08/2015 Inactive (Response to an electronic controlled substance refill request - RxReferenceNumber: [id number]) trazodone 50 mg tablet RxNorm: 318678 TAKE 1 AND 1/2 TABLET AT BEDTIME FOR 2 WEEKS, MAY INCREASE TO 2 TABLETS IF NECESSARY AFTER THAT 05/25/2015 08/22/2015 Inactive trazodone 50 mg tablet RxNorm: 958623 TAKE 1 AND 1/2 TABLET AT BEDTIME FOR 2 WEEKS, MAY INCREASE TO 2 TABLETS IF NECESSARY AFTER THAT 05/25/2015 05/24/2015 Inactive Synthroid 100 mcg tablet RxNorm: 201857 TAKE ONE TABLET BY MOUTH DAILY 04/23/2015 01/17/2016 Inactive Lipitor 10 mg tablet RxNorm: 568739 TAKE ONE TABLET BY MOUTH EVERY DAY 04/23/2015 10/25/2015 Inactive Kenalog 40 mg/mL suspension for injection RxNorm: 1035111 Milliliter(s) Inj 03/19/2015 03/19/2015 Inactive Lexapro 20 mg tablet RxNorm: 561383 1 Tablet(s) PO daily 03/19/2015 07/16/2015 Inactive 1/2 tab daily x 10 days then 1 tab daily hydrocodone 10 mg-acetaminophen 325 mg tablet RxNorm: 855123 Tablet(s) PO TAKE ONE TO TWO TABLETS BY MOUTH EVERY 6 HOURS NEEDED FOR PAIN 03/19/2015 06/06/2016 Inactive (Appended: Controlled substance eRx refill - RxReferenceNumber: [id number]) Carafate 1 gram tablet RxNorm: 170675 1 Tablet(s) PO AC & HS 03/19/2015 06/16/2015 Inactive dissolve in water and take as a slurry hydrochlorothiazide 25 mg tablet RxNorm: 087959 1 Tablet(s) PO daily 03/12/2015 09/07/2015 Inactive Nexium 40 mg capsule,delayed release RxNorm: 347881 TAKE ONE CAPSULE BY MOUTH EVERY DAY 02/26/2015 12/22/2015 Inactive Cymbalta 60 mg capsule,delayed release RxNorm: 019942 TAKE ONE CAPSULE BY MOUTH TWICE A DAY 02/23/2015 03/18/2015 Inactive alprazolam 0.25 mg tablet RxNorm: 552726 1 Tablet(s) PO daily as needed 02/11/2015 05/10/2015 Inactive (Response to an electronic controlled substance refill request - RxReferenceNumber: [id number]) trazodone 50 mg tablet RxNorm: 359857 TAKE 1 AND 1/2 TABLET AT BEDTIME FOR 2 WEEKS, MAY INCREASE TO 2 TABLETS IF NECESSARY AFTER THAT 01/27/2015 05/24/2015 Inactive Augmentin 500 mg-125 mg tablet RxNorm: 830564 1 Tablet(s) PO TID 01/07/2015 01/13/2015 Inactive gentamicin 0.3 % eye drops RxNorm: 840048 3 Drop(s) OPH QID 01/07/2015 01/13/2015 Inactive [AttnRPh: Saving apply/adjudicate RxGRP:[id number] RxBIN:[id number] RxPCN: ID#:[id number]] scopolamine 1.5 mg transdermal 72 hour patch RxNorm: 868973 1 Patch TD q72 hours 01/07/2015 11/23/2015 Inactive Synthroid 100 mcg tablet RxNorm: 277273 TAKE ONE TABLET BY MOUTH ONCE A DAY 01/06/2015 04/22/2015 Inactive nystatin 100,000 unit/gram topical powder RxNorm: 784029 APPLY TOPICALLY TWO TIMES A DAY 12/18/2014 03/17/2015 Inactive alprazolam 0.25 mg tablet RxNorm: 196465 TAKE ONE TABLET BY MOUTH DAILY NEEDED 10/30/2014 11/28/2014 Inactive (Response to an electronic controlled substance refill request - RxReferenceNumber: [id number]) alprazolam 0.25 mg tablet RxNorm: 436391 Tablet(s) TAKE ONE TABLET BY MOUTH DAILY 10/30/2014 10/29/2014 Inactive (Response to an electronic controlled substance refill request - RxReferenceNumber: [id number]) Lipitor 10 mg tablet RxNorm: 963582 TAKE ONE TABLET BY MOUTH EVERY DAY 10/30/2014 02/26/2015 Inactive alprazolam 0.25 mg tablet RxNorm: 382989 TAKE ONE TABLET BY MOUTH DAILY 10/07/2014 10/29/2014 Inactive (Response to an electronic controlled substance refill request - RxReferenceNumber: [id number]) alprazolam 0.25 mg tablet RxNorm: 118084 TAKE ONE TABLET BY MOUTH DAILY 10/06/2014 10/07/2014 Inactive (Response to an electronic controlled substance refill request - RxReferenceNumber: [id number]) alprazolam 0.25 mg tablet RxNorm: 220055 Tablet(s) TAKE ONE TABLET BY MOUTH EVERY DAY NEEDED 09/30/2014 10/06/2014 Inactive (Response to an electronic controlled substance refill request - RxReferenceNumber: [id number]) Fioricet 50 mg-325 mg-40 mg tablet RxNorm: 923763 Tablet(s) TAKE ONE TABLET BY MOUTH EVERY 4 HOURS NEEDED FOR headache 09/29/2014 10/12/2014 Inactive (Response to an electronic controlled substance refill request - RxReferenceNumber: [id number]) Bystolic 10 mg tablet RxNorm: 388606 1 Tablet(s) PO daily TAKE ONE TABLET BY MOUTH EVERY DAY 09/29/2014 04/26/2015 Inactive Bystolic 5 mg tablet RxNorm: 591869 TAKE 1 AND 1/2 TABLETS ONCE DAILY 09/24/2014 09/23/2014 Inactive Bystolic 5 mg tablet RxNorm: 149981 Tablet(s) TAKE 1 AND 1/2 TABLETS ONCE DAILY 09/24/2014 09/18/2015 Inactive gentamicin 0.3 % eye drops RxNorm: 429682 3 Drop(s) OPH QID 09/23/2014 09/29/2014 Inactive trazodone 50 mg tablet RxNorm: 375159 TAKE 1 AND 1/2 TABLET AT BEDTIME FOR 2 WEEKS, MAY INCREASE TO 2 TABLETS IF NECESSARY AFTER THAT 09/22/2014 01/26/2015 Inactive Fioricet 50 mg-325 mg-40 mg tablet RxNorm: 551787 TAKE ONE TABLET BY MOUTH EVERY 4 HOURS NEEDED FOR PAIN 09/17/2014 09/28/2014 Inactive (Response to an electronic controlled substance refill request - RxReferenceNumber: [id number]) Duragesic 50 mcg/hr transdermal patch RxNorm: 831444 1 TD q72 hours 08/07/2014 01/06/2015 Inactive [SAVINGS FOR UNINSURED PATIENTS -- BIN:[id number], PCN: ASPROD1, Group: [id number], ID# [id number], Process claim through [employer], for questions: . THIS IS NOT INSURANCE.] alprazolam 0.25 mg tablet RxNorm: 662151 TAKE ONE TABLET BY MOUTH EVERY DAY NEEDED 07/31/2014 08/29/2014 Inactive (Response to an electronic controlled substance refill request - RxReferenceNumber: [id number]) alprazolam 0.25 mg tablet RxNorm: 148884 1 Tablet(s) PO daily as needed TAKE ONE TABLET BY MOUTH EVERY DAY NEEDED 07/30/2014 08/01/2014 Inactive (Response to an electronic controlled substance refill request - RxReferenceNumber: [id number]) Diflucan 150 mg tablet RxNorm: 679505 1 Tablet(s) PO daily 06/25/2014 07/01/2014 Inactive [SAVINGS FOR UNINSURED PATIENTS -- BIN:701036, PCN: ASPROD1, Group: [id number], ID# [id number], Process claim through [employer], for questions: . THIS IS NOT INSURANCE.] Kenalog 40 mg/mL suspension for injection RxNorm: 7814178 Milliliter(s) Inj 06/23/2014 06/23/2014 Inactive [SAVINGS FOR UNINSURED PATIENTS -- BIN:066373, PCN: ASPROD1, Group: [id number], ID# [id number], Process claim through [employer], for questions: . THIS IS NOT INSURANCE.] ceftriaxone 500 mg solution for injection RxNorm: 311048 Inj 06/23/2014 06/23/2014 Inactive [SAVINGS FOR UNINSURED PATIENTS -- BIN:557787, PCN: ASPROD1, Group: [id number], ID# [id number], Process claim through [employer], for questions: . THIS IS NOT INSURANCE.] Levaquin 500 mg tablet RxNorm: 402412 1 Tablet(s) PO daily 06/23/2014 07/13/2014 Inactive [SAVINGS FOR UNINSURED PATIENTS -- BIN:059188, PCN: ASPROD1, Group: [id number], ID# [id number], Process claim through [employer], for questions: . THIS IS NOT INSURANCE.] Duragesic 50 mcg/hr transdermal patch RxNorm: 672744 1 TD q72 hours 06/05/2014 08/06/2014 Inactive [SAVINGS FOR UNINSURED PATIENTS -- BIN:585127, PCN: ASPROD1, Group: [id number], ID# [id number], Process claim through [employer], for questions: . THIS IS NOT INSURANCE.] alprazolam 0.25 mg tablet RxNorm: 364367 1 Tablet(s) PO daily as needed TAKE ONE TABLET BY MOUTH EVERY DAY NEEDED 06/02/2014 07/29/2014 Inactive (Response to an electronic controlled substance refill request - RxReferenceNumber: [id number]) nystatin 100,000 unit/gram topical powder RxNorm: 549048 APPLY TO AFFECTED AREA(S) TWO TIMES A DAY 05/01/2014 06/14/2014 Inactive hydrochlorothiazide 25 mg tablet RxNorm: 645342 TAKE ONE TABLET BY MOUTH EVERY DAY MUST CALL MD FOR APPOINTMENT 04/24/2014 10/20/2014 Inactive alprazolam 0.25 mg tablet RxNorm: 661235 Tablet(s) TAKE ONE TABLET BY MOUTH EVERY DAY NEEDED 04/16/2014 06/02/2014 Inactive (Response to an electronic controlled substance refill request - RxReferenceNumber: [id number]) alprazolam 0.25 mg tablet RxNorm: 543917 TAKE ONE TABLET BY MOUTH EVERY DAY NEEDED 04/16/2014 05/15/2014 Inactive (Response to an electronic controlled substance refill request - RxReferenceNumber: [id number]) alprazolam 0.25 mg tablet RxNorm: 805980 TAKE ONE TABLET BY MOUTH EVERY DAY NEEDED 04/16/2014 05/15/2014 Inactive (Response to an electronic controlled substance refill request - RxReferenceNumber: [id number]) alprazolam 0.25 mg tablet RxNorm: 736876 TAKE ONE TABLET BY MOUTH EVERY DAY NEEDED 04/14/2014 04/16/2014 Inactive (Response to an electronic controlled substance refill request - RxReferenceNumber: [id number]) Lipitor 10 mg tablet RxNorm: 667103 TAKE ONE TABLET BY MOUTH EVERY DAY 04/14/2014 09/10/2014 Inactive alprazolam 0.25 mg tablet RxNorm: 007777 TAKE ONE TABLET BY MOUTH EVERY DAY NEEDED 04/14/2014 04/14/2014 Inactive (Response to an electronic controlled substance refill request - RxReferenceNumber: [id number]) alprazolam 0.25 mg tablet RxNorm: 714759 TAKE ONE TABLET BY MOUTH EVERY DAY NEEDED 04/14/2014 04/15/2014 Inactive (Response to an electronic controlled substance refill request - RxReferenceNumber: [id number]) alprazolam 0.25 mg tablet RxNorm: 380214 TAKE ONE TABLET BY MOUTH EVERY DAY NEEDED 04/14/2014 04/14/2014 Inactive (Response to an electronic controlled substance refill request - RxReferenceNumber: [id number]) nystatin 100,000 unit/gram topical powder RxNorm: 661384 1 Application TOP BID 04/03/2014 07/01/2014 Inactive [SAVINGS FOR UNINSURED PATIENTS -- BIN:231953, PCN: ASPROD1, Group: [place], ID# [id number], Process claim through [employer], for questions: . THIS IS NOT INSURANCE.] Keflex 500 mg capsule RxNorm: 540615 1 Capsule(s) PO QID 04/03/2014 04/09/2014 Inactive [SAVINGS FOR UNINSURED PATIENTS -- BIN:285686, PCN: ASPROD1, Group: [id number], ID# [id number], Process claim through [employer], for questions: . THIS IS NOT INSURANCE.] Synthroid 100 mcg tablet RxNorm: 264474 1 Tablet(s) PO daily TAKE ONE TABLET BY MOUTH EVERY DAY 04/01/2014 01/05/2015 Inactive [SAVINGS FOR UNINSURED PATIENTS -- BIN:298406, PCN: ASPROD1, Group: [id number], ID# [id number], Process claim through [employer], for questions: . THIS IS NOT INSURANCE.] Duragesic 50 mcg/hr transdermal patch RxNorm: 430637 1 TD q72 hours 03/24/2014 06/04/2014 Inactive [SAVINGS FOR UNINSURED PATIENTS -- BIN:259248, PCN: ASPROD1, Group: [id number], ID# [id number], Process claim through [employer], for questions: . THIS IS NOT INSURANCE.] trazodone 50 mg tablet RxNorm: 719866 TAKE 1 AND 1/2 TABLET AT BEDTIME FOR 2 WEEKS, MAY INCREASE TO 2 TABLETS IF NECESSARY AFTER THAT 03/18/2014 09/13/2014 Inactive nystatin 100,000 unit/gram topical powder RxNorm: 198000 1 Application TOP BID 03/07/2014 03/16/2014 Inactive [SAVINGS FOR UNINSURED PATIENTS -- BIN:208741, PCN: ASPROD1, Group: [id number], ID# [id number], Process claim through [employer], for questions: . THIS IS NOT INSURANCE.] permethrin 5 % topical cream RxNorm: 578741 1 Application TOP daily 03/07/2014 11/23/2015 Inactive apply head to toe-leave on overnight and wash off in the a.m. May repeat x 1 if needed Diflucan 150 mg tablet RxNorm: 178826 1 Tablet(s) PO daily 03/07/2014 03/09/2014 Inactive [SAVINGS FOR UNINSURED PATIENTS -- BIN:629769, PCN: ASPROD1, Group: [id number], ID# [id number], Process claim through [employer], for questions: . THIS IS NOT INSURANCE.] hydrochlorothiazide 25 mg tablet RxNorm: 168567 TAKE ONE TABLET BY MOUTH EVERY DAY MUST CALL FOR APPOINTMENT 03/06/2014 04/23/2014 Inactive Zithromax Z-Sregio 250 mg tablet RxNorm: 307261 Tablet(s) PO as directed 03/04/2014 11/23/2015 Inactive [SAVINGS FOR UNINSURED PATIENTS -- BIN:661452, PCN: ASPROD1, Group: [id number], ID# [id number], Process claim through [employer], for questions: . THIS IS NOT INSURANCE.] Flonase 50 mcg/actuation nasal spray,suspension RxNorm: 622948 1 [place] NASAL daily 03/04/2014 07/01/2014 Inactive [SAVINGS FOR UNINSURED PATIENTS -- BIN:233102, PCN: ASPROD1, Group: [id number], ID# [id number], Process claim through [employer], for questions: . THIS IS NOT INSURANCE.] alprazolam 0.25 mg tablet RxNorm: 104371 1 Tablet(s) PO PRN TAKE ONE TABLET BY MOUTH EVERY DAY NEEDED 02/25/2014 04/14/2014 Inactive (Appended: Controlled substance eRx refill - RxReferenceNumber: [id number]) alprazolam 0.25 mg tablet RxNorm: 880019 TAKE ONE TABLET BY MOUTH EVERY DAY NEEDED 02/21/2014 03/22/2014 Inactive (Response to an electronic controlled substance refill request - RxReferenceNumber: [id number]) alprazolam 0.25 mg tablet RxNorm: 620069 TAKE ONE TABLET BY MOUTH EVERY DAY NEEDED 02/21/2014 03/22/2014 Inactive (Response to an electronic controlled substance refill request - RxReferenceNumber: [id number]) alprazolam 0.25 mg tablet RxNorm: 309185 TAKE ONE TABLET BY MOUTH EVERY DAY NEEDED 02/18/2014 03/19/2014 Inactive (Response to an electronic controlled substance refill request - RxReferenceNumber: [id number]) Cymbalta 60 mg capsule,delayed release RxNorm: 590691 TAKE ONE CAPSULE BY MOUTH TWICE A DAY 02/18/2014 01/13/2015 Inactive Nexium 40 mg capsule,delayed release RxNorm: 932837 TAKE ONE CAPSULE BY MOUTH EVERY DAY 02/18/2014 01/13/2015 Inactive Bactrim DS 800 mg-160 mg tablet RxNorm: 425594 1 Tablet(s) PO BID 02/13/2014 02/19/2014 Inactive probiotic while one antibiotic Bactrim DS 800 mg-160 mg tablet RxNorm: 836710 1 Tablet(s) PO BID 02/13/2014 02/12/2014 Inactive hydrocodone 10 mg-acetaminophen 325 mg tablet RxNorm: 435795 Tablet(s) PO TAKE ONE TO TWO TABLETS BY MOUTH EVERY 6 HOURS NEEDED FOR PAIN 02/06/2014 03/18/2015 Inactive (Appended: Controlled substance eRx refill - RxReferenceNumber: [id number]) Abilify 2 mg tablet RxNorm: 935496 Tablet(s) PO TAKE ONE TABLET BY MOUTH EVERY NIGHT AT BEDTIME 02/03/2014 03/19/2015 Inactive Duragesic 50 mcg/hr transdermal patch RxNorm: 621375 1 TD q72 hours 01/14/2014 03/23/2014 Inactive alprazolam 0.25 mg tablet RxNorm: 586027 1 Tablet(s) PO QDAY PRN 01/14/2014 02/12/2014 Inactive alprazolam 0.25 mg tablet RxNorm: 980672 Tablet(s) PO TAKE ONE TABLET BY MOUTH EVERY DAY NEEDED 01/14/2014 02/24/2014 Inactive (Appended: Controlled substance eRx refill - RxReferenceNumber: [id number]) Lipitor 10 mg tablet RxNorm: 758940 Tablet(s) PO TAKE ONE TABLET BY MOUTH EVERY DAY 01/14/2014 04/13/2014 Inactive Synthroid 100 mcg tablet RxNorm: 731384 Tablet(s) PO TAKE ONE TABLET BY MOUTH EVERY DAY 2013 03/31/2014 Inactive Fioricet 50 mg-325 mg-40 mg tablet RxNorm: 139590 Tablet(s) PO TAKE ONE TABLET BY MOUTH EVERY 4 HOURS NEEDED FOR PAIN 11/27/2013 09/17/2014 Inactive Fioricet 50 mg-325 mg-40 mg tablet RxNorm: 968574 Tablet(s) PO TAKE ONE TABLET BY MOUTH EVERY 4 HOURS NEEDED FOR PAIN 11/25/2013 11/26/2013 Inactive Zithromax Z-Sergio 250 mg tablet RxNorm: 157756 Tablet(s) PO as directed 11/11/2013 01/13/2014 Inactive Bystolic 10 mg tablet RxNorm: 148468 Tablet(s) PO TAKE ONE TABLET BY MOUTH EVERY DAY 10/21/2013 09/28/2014 Inactive Abilify 2 mg tablet RxNorm: 544571 1 Tablet(s) PO QHS 09/25/2013 01/22/2014 Inactive Synthroid 100 mcg tablet RxNorm: 213280 Tablet(s) PO TAKE ONE TABLET BY MOUTH EVERY DAY 09/24/2013 12/25/2013 Inactive Abilify 2 mg tablet RxNorm: 618434 1 Tablet(s) PO QHS 09/24/2013 09/24/2013 Inactive Rocephin 500 mg solution for injection RxNorm: 536349 1ml Milliliter(s) Inj 09/24/2013 09/24/2013 Inactive Rocephin 500 mg solution for injection RxNorm: 782786 1 Milliliter(s) Inj 09/19/2013 09/19/2013 Inactive Bystolic 5 mg tablet RxNorm: 427122 1 1/2 Tablet(s) PO daily 09/17/2013 03/15/2014 Inactive 1 1/2 daily may have 90 day if cheaper Bystolic 5 mg tablet RxNorm: 017012 1 1/2 Tablet(s) PO daily 09/17/2013 09/16/2013 Inactive 1 1/2 daily Lipitor 10 mg tablet RxNorm: 396164 Tablet(s) PO TAKE ONE TABLET BY MOUTH EVERY DAY 09/12/2013 01/13/2014 Inactive hydrocodone 10 mg-acetaminophen 325 mg tablet RxNorm: 564561 Tablet(s) PO TAKE ONE TO TWO TABLETS BY MOUTH EVERY 6 HOURS NEEDED FOR PAIN 09/09/2013 No Stop Date Active (Appended: Controlled substance eRx refill - RxReferenceNumber: [id number]) hydrocodone 10 mg-acetaminophen 325 mg tablet RxNorm: 312029 1 Tablet(s) PO Q6 PRN 09/09/2013 02/06/2014 Inactive hydrocodone 10 mg-acetaminophen 325 mg tablet RxNorm: 892674 Tablet(s) PO TAKE ONE TO TWO TABLETS BY MOUTH EVERY 6 HOURS NEEDED FOR PAIN 09/06/2013 No Stop Date Active (Appended: Controlled substance eRx refill - RxReferenceNumber: [id number]) Norvasc 10 mg tablet RxNorm: 517169 Tablet(s) PO TAKE ONE TABLET BY MOUTH EVERY DAY 09/05/2013 10/25/2015 Inactive trazodone 50 mg tablet RxNorm: 005458 1 1/2 Tablet(s) PO QHS 09/03/2013 03/17/2014 Inactive 75q hs x 2 week may increase to 100mg if nec after that nystatin 100,000 unit/mL oral suspension RxNorm: 169233 6 Milliliter(s) PO QID 08/06/2013 08/15/2013 Inactive Flonase 50 mcg/actuation nasal spray,suspension RxNorm: 071801 2 [place] NASAL daily 08/06/2013 03/03/2014 Inactive nystatin 100,000 unit/mL oral suspension RxNorm: 908288 6 Unit(s) PO QID 08/05/2013 08/05/2013 Inactive Phenergan with Codeine Syrup RxNorm: 5 Milliliter(s) PO Q4 PRN 08/05/2013 12/02/2013 Inactive 8 ounces alprazolam 0.25 mg tablet RxNorm: 475112 1 Tablet(s) PO QDAY PRN 07/29/2013 01/14/2014 Inactive Diflucan 150 mg tablet RxNorm: 592043 1 Tablet(s) PO daily 07/24/2013 07/26/2013 Inactive hydrochlorothiazide 25 mg tablet RxNorm: 643220 Tablet(s) PO TAKE ONE TABLET BY MOUTH EVERY DAY MUST CALL MD FOR APPOINTMENT 07/19/2013 03/05/2014 Inactive Phenergan with Codeine Syrup RxNorm: 10 Milliliter(s) PO Q4 PRN 07/10/2013 08/04/2013 Inactive 8 ounces Rocephin 500 mg solution for injection RxNorm: 620268 1 Inj 07/10/2013 07/10/2013 Inactive cefdinir 300 mg capsule RxNorm: 851770 1 Capsule(s) PO BID 07/10/2013 07/16/2013 Inactive prednisone 10 mg tablet RxNorm: 749237 3 Tablet(s) PO daily 07/10/2013 07/14/2013 Inactive Carafate 100 mg/mL oral suspension RxNorm: 382831 10 Milliliter(s) PO Q6 PRN pt to take carafate 10mL every 6 hours as needed. 07/10/2013 08/05/2014 Inactive Kenalog 40 mg/mL suspension for injection RxNorm: 1584706 1 Milliliter(s) Inj 07/10/2013 07/10/2013 Inactive trazodone 50 mg tablet RxNorm: 238457 1 Tablet(s) PO QHS 07/10/2013 09/02/2013 Inactive sulfamethoxazole 800 mg-trimethoprim 160 mg tablet RxNorm: 683993 1 Tablet(s) PO BID 06/03/2013 06/12/2013 Inactive Synthroid 125 mcg tablet RxNorm: 802282 1 Tablet(s) PO daily 05/07/2013 09/23/2013 Inactive Bystolic 10 mg tablet RxNorm: 680515 1.5 Tablet(s) PO daily 05/07/2013 09/03/2013 Inactive Voltaren 1 % Topical Gel RxNorm: 688315 4 Gram(s) TOP QID apply 4 grams to knees, 2 grams to hands and ankles four times daily. 05/07/2013 09/03/2013 Inactive hydrocodone 10 mg-acetaminophen 325 mg tablet RxNorm: 379782 1 Tablet(s) PO Q6 PRN 04/23/2013 09/09/2013 Inactive Norvasc 10 mg tablet RxNorm: 523788 Tablet(s) PO TAKE ONE TABLET BY MOUTH EVERY DAY 04/23/2013 09/04/2013 Inactive alprazolam 0.25 mg tablet RxNorm: 064514 1 Tablet(s) PO QDAY PRN 03/25/2013 07/22/2013 Inactive Bystolic 10 mg tablet RxNorm: 826863 1 Tablet(s) PO daily TAKE ONE TABLET BY MOUTH EVERY DAY 03/25/2013 05/06/2013 Inactive zolpidem 10 mg tablet RxNorm: 202074 1 Tablet(s) PO HS PRN 03/25/2013 07/09/2013 Inactive gentamicin 0.3 % Eye Drops RxNorm: 246814 3 Drop(s) OPH QID three gtts to each eye QID x 7 days 03/11/2013 03/10/2013 Inactive gentamicin 0.3 % eye drops RxNorm: 854525 3 Drop(s) OPH QID three gtts to each eye QID x 7 days 03/11/2013 03/17/2013 Inactive Nexium 40 mg capsule,delayed release RxNorm: 530373 Capsule(s) PO TAKE ONE CAPSULE BY MOUTH EVERY DAY 02/15/2013 02/17/2014 Inactive Cymbalta 60 mg capsule,delayed release RxNorm: 271628 Capsule(s) PO TAKE ONE CAPSULE BY MOUTH TWICE A DAY 02/15/2013 02/17/2014 Inactive hydrocodone 10 mg-acetaminophen 325 mg tablet RxNorm: 2904537 1 Tablet(s) PO Q6 PRN 01/22/2013 04/22/2013 Inactive Lipitor 10 mg tablet RxNorm: 516745 Tablet(s) PO TAKE ONE TABLET BY MOUTH EVERY DAY 01/07/2013 09/11/2013 Inactive Cymbalta 60 mg capsule,delayed release RxNorm: 644214 Capsule(s) PO TAKE ONE CAPSULE BY MOUTH TWICE A DAY 01/02/2013 02/14/2013 Inactive Synthroid 100 mcg tablet RxNorm: 016246 1 Tablet(s) PO 12/03/2012 05/06/2013 Inactive Enablex 7.5 mg tablet,extended release RxNorm: 543989 1 Tablet(s) PO daily 11/28/2012 11/27/2012 Inactive Enablex 7.5 mg tablet,extended release RxNorm: 839076 1 Tablet(s) PO daily 11/28/2012 11/28/2012 Inactive scopolamine 1.5 mg 72 hr Transderm Patch RxNorm: 878704 1 Milligram(s) TD q72 hours 11/26/2012 05/06/2013 Inactive hydrochlorothiazide 25 mg tablet RxNorm: 569845 Tablet(s) PO TAKE ONE TABLET BY MOUTH EVERY DAY MUST CALL FOR APPOINTMENT 11/24/2012 07/18/2013 Inactive Cymbalta 60 mg capsule,delayed release RxNorm: 568106 Capsule(s) PO TAKE ONE CAPSULE BY MOUTH TWICE A DAY 10/26/2012 01/01/2013 Inactive Bystolic 10 mg tablet RxNorm: 584423 Tablet(s) PO TAKE ONE TABLET BY MOUTH EVERY DAY 10/12/2012 03/25/2013 Inactive zolpidem 10 mg tablet RxNorm: 292445 1 Tablet(s) PO HS PRN 10/02/2012 01/29/2013 Inactive alprazolam 0.25 mg tablet RxNorm: 257125 1 Tablet(s) PO QDAY PRN 10/02/2012 01/29/2013 Inactive Kenalog 40 mg/mL Susp for Injection RxNorm: 4999229 1 Milliliter(s) Inj 09/24/2012 09/24/2012 Inactive Diflucan 150 mg tablet RxNorm: 444519 1 Tablet(s) PO daily 09/24/2012 09/30/2012 Inactive acyclovir 400 mg tablet RxNorm: 542102 1 Tablet(s) PO QID 09/24/2012 10/08/2012 Inactive Cipro 500 mg tablet RxNorm: 034009 1 Tablet(s) PO BID 09/24/2012 09/30/2012 Inactive Tamiflu 75 mg capsule RxNorm: 340471 1 Capsule(s) PO BID 09/17/2012 09/16/2012 Inactive Tamiflu 75 mg capsule RxNorm: 902548 1 Capsule(s) PO BID 09/17/2012 09/16/2012 Inactive Tamiflu 75 mg capsule RxNorm: 995618 1 Capsule(s) PO BID please disregard order for #14 09/17/2012 09/21/2012 Inactive fluconazole 150 mg tablet RxNorm: 061955 1 Tablet(s) PO daily 09/10/2012 09/13/2012 Inactive ketoconazole 2 % Topical Cream RxNorm: 354855 Application TOP BID apply to affected area BID until gone 08/31/2012 No Stop Date Active Norvasc 10 mg tablet RxNorm: 254559 Tablet(s) PO TAKE ONE TABLET BY MOUTH EVERY DAY 08/29/2012 04/22/2013 Inactive Cipro 500 mg tablet RxNorm: 261118 1 Tablet(s) PO BID 08/17/2012 08/26/2012 Inactive Flagyl 500 mg tablet RxNorm: 336124 1 Tablet(s) PO TID 08/17/2012 08/23/2012 Inactive Cipro 500 mg tablet RxNorm: 174566 1 Tablet(s) PO BID 08/17/2012 08/16/2012 Inactive zolpidem 10 mg tablet RxNorm: 455962 1 Tablet(s) PO HS PRN 08/17/2012 09/15/2012 Inactive Flagyl 500 mg tablet RxNorm: 432780 1 Tablet(s) PO TID 08/17/2012 08/16/2012 Inactive alprazolam 0.25 mg tablet RxNorm: 763015 1 Tablet(s) PO QDAY PRN 08/17/2012 09/15/2012 Inactive [place] Allergy 180 mg tablet RxNorm: 034374 1 Tablet(s) PO daily 08/08/2012 02/03/2013 Inactive hydrochlorothiazide 25 mg tablet RxNorm: 877938 1/2 Tablet(s) PO daily 08/08/2012 11/05/2012 Inactive needs appt Carafate 1 gram tablet RxNorm: 870054 1 Tablet(s) PO QID mix with 10 cc water and dissolve into slurry 08/08/2012 08/21/2012 Inactive hydrocodone 10 mg-acetaminophen 325 mg tablet RxNorm: 7437041 1 Tablet(s) PO Q6 PRN 08/08/2012 01/21/2013 Inactive Synthroid 100 mcg tablet RxNorm: 050757 1 Tablet(s) PO 08/08/2012 12/02/2012 Inactive Cymbalta 60 mg capsule,delayed release RxNorm: 199888 Capsule(s) PO 07/23/2012 10/25/2012 Inactive TAKE ONE CAPSULE BY MOUTH TWICE A DAY Nexium 40 mg capsule,delayed release RxNorm: 669571 Capsule(s) PO 06/20/2012 02/14/2013 Inactive TAKE ONE CAPSULE BY MOUTH EVERY DAY Lipitor 10 mg tablet RxNorm: 939037 Tablet(s) PO 06/20/2012 01/06/2013 Inactive TAKE ONE TABLET BY MOUTH EVERY DAY hydrochlorothiazide 25 mg tablet RxNorm: 150212 1 Tablet(s) PO daily 06/19/2012 08/07/2012 Inactive needs appt alprazolam 0.25 mg tablet RxNorm: 097016 1 Tablet(s) PO QDAY PRN 06/05/2012 07/04/2012 Inactive zolpidem 10 mg tablet RxNorm: 820627 1 Tablet(s) PO HS PRN 06/05/2012 07/04/2012 Inactive zolpidem 10 mg tablet RxNorm: 410472 1 Tablet(s) PO HS PRN 04/16/2012 05/15/2012 Inactive alprazolam 0.25 mg tablet RxNorm: 800757 1 Tablet(s) PO QDAY PRN 04/16/2012 05/15/2012 Inactive Cymbalta 60 mg capsule,delayed release RxNorm: 697524 1 Capsule(s) PO BID 03/22/2012 07/19/2012 Inactive Fioricet 50 mg-325 mg-40 mg tablet RxNorm: 265398 1 Tablet(s) PO Q4 PRN 03/22/2012 11/24/2013 Inactive Bystolic 10 mg tablet RxNorm: 979929 Tablet(s) PO 03/22/2012 10/11/2012 Inactive TAKE ONE TABLET BY MOUTH EVERY DAY potassium chloride ER 10 mEq Tab RxNorm: 911232 1 Tablet(s) PO daily 02/24/2012 03/01/2012 Inactive Lasix 20 mg Tab RxNorm: 672776 1 Tablet(s) PO daily 02/22/2012 02/21/2012 Inactive KCL 10 meq RxNorm: 1 PO daily 02/22/2012 02/21/2012 Inactive potassium chloride ER 10 mEq Tab RxNorm: 416434 1 Tablet(s) PO daily 02/22/2012 02/21/2012 Inactive Lasix 20 mg Tab RxNorm: 065543 1 Tablet(s) PO daily 02/22/2012 02/28/2012 Inactive KCL 10 meq RxNorm: 1 PO daily 02/22/2012 02/22/2012 Inactive potassium chloride ER 10 mEq Tab RxNorm: 125399 1 Tablet(s) PO daily 02/22/2012 02/23/2012 Inactive Rocephin 500 mg Solution for Injection RxNorm: 743780 Inj 02/15/2012 02/15/2012 Inactive Nexium 40 mg capsule,delayed release RxNorm: 158876 1 Capsule(s) PO daily 02/15/2012 No Stop Date Active Bystolic 10 mg Tab RxNorm: 948872 1 Tablet(s) PO daily 02/15/2012 08/12/2012 Inactive alprazolam 0.25 mg tablet RxNorm: 492584 1 Tablet(s) PO QDAY PRN 01/31/2012 02/29/2012 Inactive zolpidem 10 mg tablet RxNorm: 154917 1 Tablet(s) PO HS PRN 01/31/2012 02/29/2012 Inactive alprazolam 0.25 mg Tab RxNorm: 075792 1 Tablet(s) PO QDAY PRN 12/16/2011 01/14/2012 Inactive zolpidem 10 mg Tab RxNorm: 599129 1 Tablet(s) PO HS PRN 12/16/2011 01/14/2012 Inactive Norvasc 10 mg tablet RxNorm: 135774 1 Tablet(s) PO daily 12/02/2011 02/21/2012 Inactive Lipitor 10 mg tablet RxNorm: 375737 1 Tablet(s) PO daily 11/16/2011 05/13/2012 Inactive zolpidem 10 mg Tab RxNorm: 600999 1 Tablet(s) PO HS PRN 10/26/2011 12/15/2011 Inactive alprazolam 0.25 mg Tab RxNorm: 047311 1 Tablet(s) PO QDAY PRN 10/26/2011 12/15/2011 Inactive hydrochlorothiazide 25 mg tablet RxNorm: 830299 1 Tablet(s) PO daily 09/05/2011 03/02/2012 Inactive Synthroid 75 mcg tablet RxNorm: 386166 1 Tablet(s) PO daily 08/01/2011 02/26/2012 Inactive Abilify 2 mg Tab RxNorm: 135177 1 Tablet(s) PO QHS 08/01/2011 09/10/2012 Inactive dicyclomine 10 mg Cap RxNorm: 073590 1 Capsule(s) PO TID 08/01/2011 10/29/2011 Inactive alprazolam 0.25 mg Tab RxNorm: 898561 1 Tablet(s) PO QDAY PRN 07/26/2011 10/25/2011 Inactive Fioricet 50 mg-325 mg-40 mg tablet RxNorm: 923884 1 Tablet(s) PO Q4 PRN 07/14/2011 03/21/2012 Inactive Rocephin 500 mg Solution for Injection RxNorm: 785866 1 Milliliter(s) Inj 07/14/2011 08/01/2011 Inactive Nexium 40 mg Capsule, delayed release RxNorm: 939768 1 Capsule(s) PO daily 05/23/2011 10/06/2011 Inactive Bystolic 10 mg tablet RxNorm: 771296 1 Tablet(s) PO daily 05/23/2011 11/18/2011 Inactive Bystolic 10 mg Tab RxNorm: 217203 1 Tablet(s) PO daily 05/23/2011 05/22/2011 Inactive alprazolam 0.25 mg Tab RxNorm: 743631 1 Tablet(s) PO QDAY PRN 05/23/2011 07/25/2011 Inactive Influenza Virus Vaccine 0.5 mL RxNorm: IM 05/23/2011 05/23/2011 Inactive zolpidem 10 mg Tab RxNorm: 902430 1 Tablet(s) PO HS PRN 05/23/2011 10/25/2011 Inactive Rocephin 500 mg Solution for Injection RxNorm: 347349 1 Milliliter(s) Inj 05/03/2011 07/14/2011 Inactive Kenalog 40 mg/mL Susp for Injection RxNorm: 0313763 1 Milliliter(s) Inj 05/03/2011 07/14/2011 Inactive Bactrim DS 800 mg-160 mg Tab RxNorm: 079088 1 Tablet(s) PO BID 05/03/2011 08/01/2011 Inactive Flonase 50 mcg/actuation nasal spray,suspension RxNorm: 7792366 1 [place] NASAL daily No Start Date Active 1 spray to each nostril daily aspirin 81 mg tablet RxNorm: 184207 1 Tablet(s) PO daily No Start Date Active baclofen 10 mg tablet RxNorm: 271755 1 Tablet(s) PO TID as needed muscle spasms No Start Date Active Fish Oil 1,000 mg Cap RxNorm: 1 Capsule(s) PO TID No Start Date Active Flonase 50 mcg/actuation nasal spray,suspension RxNorm: 6530524 2 [place] NASAL daily No Start Date 08/05/2013 Inactive Duragesic 50 mcg/hr transdermal patch RxNorm: 491137 1 TD q72 hours No Start Date 01/13/2014 Inactive Vesicare 5 mg tablet RxNorm: 899270 1 Tablet(s) PO daily No Start Date 01/06/2015 Inactive Celebrex 200 mg capsule RxNorm: 923215 1 Capsule(s) PO daily No Start Date 04/02/2014 Inactive zolpidem 10 mg Tab RxNorm: 021652 1 Tablet(s) PO HS PRN No Start Date 05/22/2011 Inactive Zyrtec 10 mg Tab RxNorm: 7956218 1 Tablet(s) PO daily No Start Date 08/08/2012 Inactive Nexium 40 mg Cap RxNorm: 023813 1 Capsule(s) PO daily No Start Date 05/22/2011 Inactive ketoconazole 2 % Topical Cream RxNorm: 528881 Application TOP BID apply to affected area BID until gone No Start Date 08/30/2012 Inactive Cymbalta 60 mg capsule,delayed release RxNorm: 492211 1 Capsule(s) PO BID No Start Date 03/21/2012 Inactive alprazolam 0.25 mg Tab RxNorm: 621592 1 Tablet(s) PO QDAY PRN No Start Date 05/22/2011 Inactive Toprol XL 100 mg 24 hr Tab RxNorm: 089656 1 Tablet(s) PO BID No Start Date 04/25/2011 Inactive Xanax 0.25 mg tablet RxNorm: 589897 1 Tablet(s) PO daily as needed No Start Date 12/27/2015 Inactive Bystolic 10 mg Tab RxNorm: 696292 1 Tablet(s) PO daily No Start Date 05/22/2011 Inactive Fioricet 50 mg-325 mg-40 mg Tab RxNorm: 453079 1 Tablet(s) PO Q4 PRN No Start Date 07/13/2011 Inactive albuterol sulfate HFA 90 mcg/Actuation Aerosol Inhaler RxNorm: 3107540 1 INH Q4 PRN No Start Date 01/06/2015 Inactive Imitrex 50 mg tablet RxNorm: 015765 1 Tablet(s) PO Q8 as needed may repeat x1 dose in 1 hour of inital dose. No Start Date 02/24/2016 Inactive dc fioricet Tessalon 200 mg Cap RxNorm: 553897 1 Capsule(s) PO Q4 PRN No Start Date 02/14/2012 Inactive Zithromax Z-Sergio 250 mg tablet RxNorm: 737238 Tablet(s) PO No Start Date 11/10/2013 Inactive hydrochlorothiazide 25 mg Tab RxNorm: 880647 1 Tablet(s) PO daily No Start Date 09/04/2011 Inactive Deplin 15 mg Tab RxNorm: 1 Tablet(s) PO daily No Start Date 08/01/2011 Inactive Brilinta 90 mg tablet RxNorm: 9853305 1 Tablet(s) PO BID No Start Date 11/23/2015 Inactive Synthroid 75 mcg Tab RxNorm: 883201 1 Tablet(s) PO daily No Start Date 07/31/2011 Inactive scopolamine 1.5 mg 72 hr Transderm Patch RxNorm: 432706 1 Milligram(s) TD q72 hours No Start Date 11/25/2012 Inactive hydrocodone-acetaminophen 10 mg-325 mg tablet RxNorm: 7434814 1 Tablet(s) PO Q6 PRN No Start Date 08/07/2012 Inactive Phenergan with Codeine Syrup RxNorm: 5-10 Milliliter(s) PO Q6 PRN No Start Date 02/14/2012 Inactive Norvasc 10 mg Tab RxNorm: 444656 1 Tablet(s) PO daily No Start Date 12/01/2011 Inactive Zithromax Z-Sergio 250 mg Tab RxNorm: 918436 Tablet(s) PO No Start Date 08/01/2011 Inactive Medication Administered Medication Codes Instructions Start Date Status ceftriaxone 500 mg solution for injection RxNorm: 6774347 1Milliliter 11/28/2016 No longer Active Kenalog 40 mg/mL suspension for injection RxNorm: 1186420 Milliliter 11/07/2016 No longer Active ceftriaxone 500 mg solution for injection RxNorm: 1784050 11/07/2016 No longer Active ceftriaxone 500 mg solution for injection RxNorm: 8952817 12/07/2015 No longer Active Kenalog 40 mg/mL suspension for injection RxNorm: 2716728 1Milliliter 11/24/2015 No longer Active ceftriaxone 500 mg solution for injection RxNorm: 6313432 Milliliter 11/24/2015 No longer Active promethazine 25 mg/mL injection solution RxNorm: 357124 Milliliter 08/27/2015 No longer Active ketorolac 60 mg/2 mL intramuscular solution RxNorm: 874564 Milliliter 08/27/2015 No longer Active Kenalog 40 mg/mL suspension for injection RxNorm: 1332714 Milliliter 08/10/2015 No longer Active ceftriaxone 500 mg solution for injection RxNorm: 7780062 08/10/2015 No longer Active ceftriaxone 500 mg solution for injection RxNorm: 4162311 1Milliliter 07/28/2015 No longer Active Kenalog 40 mg/mL suspension for injection RxNorm: 5000426 Milliliter 03/19/2015 No longer Active Kenalog 40 mg/mL suspension for injection RxNorm: 9881730 Milliliter 06/23/2014 No longer Active ceftriaxone 500 mg solution for injection RxNorm: 055834 06/23/2014 No longer Active Rocephin 500 mg solution for injection RxNorm: 457735 1mlMilliliter 09/24/2013 No longer Active Rocephin 500 mg solution for injection RxNorm: 852720 1Milliliter 09/19/2013 No longer Active Rocephin 500 mg solution for injection RxNorm: 116184 1 07/10/2013 No longer Active Kenalog 40 mg/mL suspension for injection RxNorm: 0875076 1Milliliter 07/10/2013 No longer Active Kenalog 40 mg/mL Susp for Injection RxNorm: 9677276 1Milliliter 09/24/2012 No longer Active Rocephin 500 mg Solution for Injection RxNorm: 725036 02/15/2012 No longer Active Influenza Virus Vaccine [...] 26.9 % 11/07/2016 Cbc With Differential Ord2 [place]% 6.1 % 11/07/2016 Cbc With Differential Ord2 MCH 31.4 pg 11/07/2016 Cbc With Differential Ord2 Eos% 2.8 % 11/07/2016 Cbc With Differential Ord2 MCHC 32.6 pg 11/07/2016 Cbc With Differential Ord2 PLT 231 K/ul 11/07/2016 Cbc With Differential Ord2 Baso% 0.5 % 11/07/2016 Cbc With Differential Ord2 RDW 13.7 % 11/07/2016 Cbc With Differential Ord2 Neut ABS# 5.87 K/ul 11/07/2016 Cbc With Differential Ord2 Lymph ABS# 2.48 K/ul 11/07/2016 Cbc With Differential Ord2 [place] ABS# 0.6 K/ul 11/07/2016 Cbc With Differential Ord2 Eos ABS# 0.3 K/ul 11/07/2016 Cbc With Differential Ord2 Baso ABS# 0.1 K/ul 11/07/2016 Comp Metabolic Cor521 NA 139 mEq/L 11/07/2016 Comp Metabolic Gpd696 K 3.8 mEq/L 11/07/2016 Comp Metabolic Zwk875 CL 106 mEq/L 11/07/2016 Comp Metabolic Dus268 CO2 25.0 mEq/L 11/07/2016 Comp Metabolic Oks841 ANION GAP 12 11/07/2016 Comp Metabolic Tge531 GLUCOSE 98 mg/dL 11/07/2016 Comp Metabolic Cnq436 Creat 0.8 mg/dL 11/07/2016 Comp Metabolic Gjv441 eGFR 71 ml/min/1.73m2 11/07/2016 Comp Metabolic Nxe634 BUN 36 mg/dL 11/07/2016 Comp Metabolic Bsg816 B/C Ratio 42.9 Ratio 11/07/2016 Comp Metabolic Eox388 CALCIUM 9.9 mg/dL 11/07/2016 Comp Metabolic Dwc161 ALK PHOS 57 U/L 11/07/2016 Comp Metabolic Yfg025 AST(SGOT) 24 U/L 11/07/2016 Comp Metabolic Yel257 ALT(SGPT) 28 U/L 11/07/2016 Comp Metabolic Fwy448 BILI T 0.4 mg/dL 11/07/2016 Comp Metabolic Zfu463 ALBUMIN 4.2 g/dL 11/07/2016 Comp Metabolic Jwv952 TPRO 7.0 g/dL 11/07/2016 Comp Metabolic Mjk483 GLOB 2.8 g/dL 11/07/2016 Comp Metabolic Qlk733 A/G Ratio 1.5 Ratio 11/07/2016 Comp Metabolic Kir889 Osmo 286 mOsmo 11/07/2016 Free T4 Tym252 FREE T4 0.75 ng/dL 11/07/2016 Tsh Ord6 hTSH II 3.46 uIU/mL 11/07/2016 Comp Metabolic Kgn619 NA 138 mEq/L 05/10/2016 Comp Metabolic Vjn738 K 3.8 mEq/L 05/10/2016 Comp Metabolic Bpw334 CL 102 mEq/L 05/10/2016 Comp Metabolic Rrv904 CO2 29.0 mEq/L 05/10/2016 Comp Metabolic Yaj848 ANION GAP 11 05/10/2016 Comp Metabolic Fet474 GLUCOSE 107 mg/dL 05/10/2016 Comp Metabolic Ukg311 Creat 0.7 mg/dL 05/10/2016 Comp Metabolic Bhq189 eGFR 93 ml/min/1.73m2 05/10/2016 Comp Metabolic Svj064 BUN 18 mg/dL 05/10/2016 Comp Metabolic Olz736 B/C Ratio 26.9 Ratio 05/10/2016 Comp Metabolic Bbc519 CALCIUM 9.8 mg/dL 05/10/2016 Comp Metabolic Ilu330 ALK PHOS 60 U/L 05/10/2016 Comp Metabolic Pxu510 AST(SGOT) 21 U/L 05/10/2016 Comp Metabolic Aag158 ALT(SGPT) 23 U/L 05/10/2016 Comp Metabolic Utk320 BILI T 0.5 mg/dL 05/10/2016 Comp Metabolic Egi941 ALBUMIN 4.1 g/dL 05/10/2016 Comp Metabolic Uxn542 TPRO 6.7 g/dL 05/10/2016 Comp Metabolic Hey453 GLOB 2.7 g/dL 05/10/2016 Comp Metabolic Paa123 A/G Ratio 1.5 Ratio 05/10/2016 Comp Metabolic Kre252 Osmo 278 mOsmo 05/10/2016 Lipid Ord30 CHOL 169 mg/dL 05/10/2016 Lipid Ord30 HDL 50.0 mg/dl 05/10/2016 Lipid Ord30 TRIG 161 mg/dL 05/10/2016 Lipid Ord30 LDL 87 mg/dL 05/10/2016 Lipid Ord30 C/HDL 3.4 Ratio 05/10/2016 Comp Metabolic Wyo375 NA 137 mEq/L 06/12/2015 Comp Metabolic Mee355 K 3.8 mEq/L 06/12/2015 Comp Metabolic Wsr275 CL 104 mEq/L 06/12/2015 Comp Metabolic Zpy359 CO2 24.0 mEq/L 06/12/2015 Comp Metabolic Oax971 ANION GAP 13 06/12/2015 Comp Metabolic Twb737 GLUCOSE 92 mg/dL 06/12/2015 Comp Metabolic Prg400 Creat 0.7 mg/dL 06/12/2015 Comp Metabolic Skf431 eGFR 87 ml/min/1.73m2 06/12/2015 Comp Metabolic Ysp902 BUN 31 mg/dL 06/12/2015 Comp Metabolic Bso126 B/C Ratio 43.7 Ratio 06/12/2015 Comp Metabolic Fpe557 CALCIUM 10.0 mg/dL 06/12/2015 Comp Metabolic Mqi135 ALK PHOS 58 U/L 06/12/2015 Comp Metabolic Skq308 AST(SGOT) 32 U/L 06/12/2015 Comp Metabolic Cmy479 ALT(SGPT) 33 U/L 06/12/2015 Comp Metabolic Ljk073 BILI T 0.5 mg/dL 06/12/2015 Comp Metabolic Znm089 ALBUMIN 4.1 g/dL 06/12/2015 Comp Metabolic Nvk442 TPRO 6.6 g/dL 06/12/2015 Comp Metabolic Nhy351 GLOB 2.5 g/dL 06/12/2015 Comp Metabolic Ybx919 A/G Ratio 1.6 Ratio 06/12/2015 Comp Metabolic Dby153 Osmo 280 mOsmo 06/12/2015 Cbc With Differential [...] Differential Ord2 RDW 14.2 % 06/12/2015 CBC 6514095 WBC 8.7 10e9/L 04/30/2013 CBC [id number] RBC 4.63 10e12/L 04/30/2013 CBC [id number] HGB 14.1 g/dL 04/30/2013 CBC [id number] HCT DET 42.2 % 04/30/2013 CBC 3970643 MCV 91.1 fL 04/30/2013 CBC 1143928 MCH 30.5 pg 04/30/2013 CBC [id number] MCHC 33.4 g/dL 04/30/2013 CBC 2261554 PLT 248 10e9/L 04/30/2013 CBC 1525359 MPV 12.1 fL 04/30/2013 CBC 1281260 LARA % 59.0 % 04/30/2013 CBC 2600776 LY % 27.6 % 04/30/2013 CBC 4175790 MON % 8.0 % 04/30/2013 CBC 2385113 EOS % 4.8 % 04/30/2013 CBC 0325527 BASO % 0.6 % 04/30/2013 CBC 4564131 RDW 13.3 % 04/30/2013 CBC 0612307 ABS LARA 5.13 10e9/L 04/30/2013 CBC 9236398 ABS LYMPH 2.40 10e9/L 04/30/2013 CBC 8624699 ABS MONO 0.70 10e9/L 04/30/2013 CBC 2480871 ABS EOS 0.42 10e9/L 04/30/2013 CBC 3746194 ABS BASO 0.05 10e9/L 04/30/2013 CBC 4762823 RDW-SD 43.1 fL 04/30/2013 TSH 8733478 TSH 4.339 uIU/ML 04/30/2013 A1C HPLC 4243177 A1C HPLC 49823-6 5.6 % 04/30/2013 FREE T4 1173590 FREE T4 0.84 NG/DL 04/30/2013 GFR CALC 4970597 GFR AA >60 ML/MIN 04/30/2013 GFR CALC 9107375 GFR NON-AA >60 ML/MIN 04/30/2013 CHEM 14 3414050 AST 22 U/L 04/30/2013 CHEM 14 3605884 ALT 22 IU/L 04/30/2013 CHEM 14 9844735 BUN 24 MG/DL 04/30/2013 CHEM 14 6657667 ALBUMIN 4.2 GM/DL 04/30/2013 CHEM 14 8355848 CHLORIDE 107 MMOL/L 04/30/2013 CHEM 14 7977630 BILI TOT 0.3 MG/DL 04/30/2013 CHEM 14 [id number] ALK PHOS 88 U/L 04/30/2013 CHEM 14 8507088 SODIUM 141 MMOL/L 04/30/2013 CHEM 14 0050836 CREATININE 0.60 MG/DL 04/30/2013 CHEM 14 3859727 CALCIUM 9.9 MG/DL 04/30/2013 CHEM 14 8537428 POTASSIUM 3.7 MMOL/L 04/30/2013 CHEM 14 6387125 PROT TOT 6.6 GM/DL 04/30/2013 CHEM 14 6413650 GLUCOSE 123 MG/DL 04/30/2013 CHEM 14 3692341 BICARB 25 MMOL/L 04/30/2013 CHEM 14 4546663 ANION GAP 9 MEQ/L 04/30/2013 LIPID GRP HDL TEST 46 MG/DL 04/30/2013 LIPID GRP TRIG 148 MG/DL 04/30/2013 LIPID GRP TEST LDL 75 MG/DL 04/30/2013 LIPID GRP CHOL 151 MG/DL 04/30/2013 LIPID GRP RCHOL/HDL 3.28 RATIO 04/30/2013 TSH 5503758 TSH 3.341 uIU/ML 11/29/2012 CBC 0708103 WBC 8.4 10e9/L 11/29/2012 CBC 1437018 RBC 4.77 10e12/L 11/29/2012 CBC 8583657 HGB 14.9 g/dL 11/29/2012 CBC 0221364 HCT DET 44.2 % 11/29/2012 CBC 3980001 MCV 92.7 fL 11/29/2012 CBC 3331496 MCH 31.2 pg 11/29/2012 CBC 1299362 MCHC 33.7 g/dL 11/29/2012 CBC 3352909 PLT 253 10e9/L 11/29/2012 CBC 2568672 MPV 11.8 fL 11/29/2012 CBC 8158861 LARA % 54.9 % 11/29/2012 CBC 2993020 LY % 29.0 % 11/29/2012 CBC 4333677 MON % 10.4 % 11/29/2012 CBC 4931983 EOS % 5.1 % 11/29/2012 CBC 3165293 BASO % 0.6 % 11/29/2012 CBC 7600506 RDW 13.8 % 11/29/2012 CBC 9444297 ABS LARA 4.61 10e9/L 11/29/2012 CBC 2669500 ABS LYMPH 2.44 10e9/L 11/29/2012 CBC 1690476 ABS MONO 0.87 10e9/L 11/29/2012 CBC 3723133 ABS EOS 0.43 10e9/L 11/29/2012 CBC 9163256 ABS BASO 0.05 10e9/L 11/29/2012 CBC 5417393 RDW-SD 45.9 fL 11/29/2012 CHEM 14 3103213 AST 25 U/L 11/29/2012 CHEM 14 0121970 ALT 26 IU/L 11/29/2012 CHEM 14 0190188 BUN 25 MG/DL 11/29/2012 CHEM 14 8599307 ALBUMIN 4.4 GM/DL 11/29/2012 CHEM 14 9244467 CHLORIDE 106 MMOL/L 11/29/2012 CHEM 14 5530870 BILI TOT 0.4 MG/DL 11/29/2012 CHEM 14 7943016 ALK PHOS 86 U/L 11/29/2012 CHEM 14 8672209 SODIUM 141 MMOL/L 11/29/2012 CHEM 14 6530300 CREATININE 0.80 MG/DL 11/29/2012 CHEM 14 3362798 CALCIUM 9.7 MG/DL 11/29/2012 CHEM 14 8524819 POTASSIUM 4.0 MMOL/L 11/29/2012 CHEM 14 6536214 PROT TOT 6.6 GM/DL 11/29/2012 CHEM 14 2141404 GLUCOSE 112 MG/DL 11/29/2012 CHEM 14 1409181 BICARB 29 MMOL/L 11/29/2012 CHEM 14 5766410 ANION GAP 6 MEQ/L 11/29/2012 A1C HPLC 4656065 A1C HPLC 82600-6 5.5 % 11/29/2012 LIPID GRP 0964375 HDL TEST 54 MG/DL 11/29/2012 LIPID GRP 8215566 TRIG 77 MG/DL 11/29/2012 LIPID GRP TEST LDL 78 MG/DL 11/29/2012 LIPID GRP CHOL 147 MG/DL 11/29/2012 LIPID GRP RCHOL/HDL 2.72 RATIO 11/29/2012 FREE T4 7377176 FREE T4 1.23 NG/DL 11/29/2012 GFR CALC 9476704 GFR AA >60 ML/MIN 11/29/2012 GFR CALC 0902437 GFR NON-AA >60 ML/MIN 11/29/2012 CHEM 14 5229497 AST 23 U/L 08/07/2012 CHEM 14 2244107 ALT 34 IU/L 08/07/2012 CHEM 14 5165808 BUN 26 MG/DL 08/07/2012 CHEM 14 3651322 ALBUMIN 4.4 GM/DL 08/07/2012 CHEM 14 0969527 CHLORIDE 105 MMOL/L 08/07/2012 CHEM 14 5221189 BILI TOT 0.5 MG/DL 08/07/2012 CHEM 14 5531708 ALK PHOS 79 U/L 08/07/2012 CHEM 14 9349350 SODIUM 140 MMOL/L 08/07/2012 CHEM 14 2842311 CREATININE 0.71 MG/DL 08/07/2012 CHEM 14 1999252 CALCIUM 10.4 MG/DL 08/07/2012 CHEM 14 5247801 POTASSIUM 3.8 MMOL/L 08/07/2012 CHEM 14 7825673 PROT TOT 6.8 GM/DL 08/07/2012 CHEM 14 2010349 GLUCOSE 104 MG/DL 08/07/2012 CHEM 14 1331127 BICARB 27 MMOL/L 08/07/2012 CHEM 14 6144278 ANION GAP 8 MEQ/L 08/07/2012 A1C HPLC 9811689 A1C HPLC 01725-3 5.4 % 08/07/2012 FREE T4 0354507 FREE T4 1.11 NG/DL 08/07/2012 LIPID GRP HDL TEST 50 MG/DL 08/07/2012 LIPID GRP TRIG 127 MG/DL 08/07/2012 LIPID GRP TEST LDL 93 MG/DL 08/07/2012 LIPID GRP CHOL 168 MG/DL 08/07/2012 LIPID GRP 6612469 RCHOL/HDL 3.36 RATIO 08/07/2012 CBC 5645944 WBC 8.7 10e9/L 08/07/2012 CBC 5276532 RBC 4.67 10e12/L 08/07/2012 CBC 1240905 HGB 14.4 g/dL 08/07/2012 CBC 5059279 HCT DET 42.8 % 08/07/2012 CBC 0516111 MCV 91.6 fL 08/07/2012 CBC 8226110 MCH 30.8 pg 08/07/2012 CBC 6105142 MCHC 33.6 g/dL 08/07/2012 CBC 9280115 PLT 271 10e9/L 08/07/2012 CBC 1958584 MPV 12.3 fL 08/07/2012 CBC 5442643 LARA % 50.6 % 08/07/2012 CBC 9236970 LY % 34.9 % 08/07/2012 CBC 7760406 MON % 9.1 % 08/07/2012 CBC 5455485 EOS % 5.1 % 08/07/2012 CBC 6664767 BASO % 0.3 % 08/07/2012 CBC 7784264 RDW 13.6 % 08/07/2012 CBC 6384534 ABS LARA 4.40 10e9/L 08/07/2012 CBC 0247790 ABS LYMPH 3.04 10e9/L 08/07/2012 CBC 4330928 ABS MONO 0.79 10e9/L 08/07/2012 CBC 2172586 ABS EOS 0.44 10e9/L 08/07/2012 CBC 8120927 ABS BASO 0.03 10e9/L 08/07/2012 CBC 2558849 RDW-SD 44.1 fL 08/07/2012 TSH 7219141 TSH 7.419 uIU/ML 08/07/2012 GFR CALC 4212734 GFR AA >60 ML/MIN 08/07/2012 GFR CALC 0318821 GFR NON-AA >60 ML/MIN 08/07/2012 A1C HPLC 7248692 A1C HPLC 58780-3 5.3 % 02/21/2012 TSH 2197275 TSH 0.832 uIU/ML 02/16/2012 FREE T4 8702880 FREE T4 1.04 NG/DL 02/16/2012 GFR CALC 1084510 GFR AA >60 ML/MIN 02/16/2012 GFR CALC 2760133 GFR NON-AA >60 ML/MIN 02/16/2012 BMP 9901553 GLUCOSE 112 MG/DL 02/16/2012 BMP CREATININE 0.65 MG/DL 02/16/2012 BMP BUN 17 MG/DL 02/16/2012 BMP SODIUM 144 MMOL/L 02/16/2012 [facility] POTASSIUM 4.0 MMOL/L 02/16/2012 [facility] CHLORIDE 107 MMOL/L 02/16/2012 BMP BICARB 29 MMOL/L 02/16/2012 [facility] ANION GAP 8 MEQ/L 02/16/2012 BMP CALCIUM 9.5 MG/DL 02/16/2012 CBC 9867635 WBC 7.1 10e9/L 02/16/2012 CBC 0442462 RBC 4.47 10e12/L 02/16/2012 CBC 3540419 HGB 13.5 g/dL 02/16/2012 CBC 3031628 HCT DET 40.7 % 02/16/2012 CBC 5317072 MCV 91.1 fL 02/16/2012 CBC 7384078 MCH 30.2 pg 02/16/2012 CBC 1271813 MCHC 33.2 g/dL 02/16/2012 CBC 4081746 PLT 238 10e9/L 02/16/2012 CBC 1975089 MPV 11.4 fL 02/16/2012 CBC 6871766 LARA % 55.7 % 02/16/2012 CBC 5587874 LY % 29.6 % 02/16/2012 CBC 4680086 MON % 9.2 % 02/16/2012 CBC 2522417 EOS % 5.1 % 02/16/2012 CBC 0459508 BASO % 0.4 % 02/16/2012 CBC 1651501 RDW 13.0 % 02/16/2012 CBC 9471278 ABS LARA 3.95 10e9/L 02/16/2012 CBC 5671377 ABS LYMPH 2.10 10e9/L 02/16/2012 CBC 0887622 ABS MONO 0.65 10e9/L 02/16/2012 CBC 3362919 ABS EOS 0.36 10e9/L 02/16/2012 CBC 6593015 ABS BASO 0.03 10e9/L 02/16/2012 CBC 8940030 RDW-SD 42.4 fL 02/16/2012 URINALYSIS NONAUTO W/O SCOPE 47478 Specific [place] 1.015 DateTime(Free Text in Aprima) URINALYSIS NONAUTO W/O SCOPE 98699 PH 7 DateTime(Free Text in Aprima) URINALYSIS NONAUTO W/O SCOPE 75932 GLUCOSE neg DateTime(Free Text in Aprima) URINALYSIS NONAUTO W/O SCOPE 86843 Protein 1+ DateTime(Free Text in Aprima) URINALYSIS NONAUTO W/O SCOPE 98732 Blood neg DateTime(Free Text in Aprima) URINALYSIS NONAUTO W/O SCOPE 72840 Bilirubin neg DateTime(Free Text in Aprima) URINALYSIS NONAUTO W/O SCOPE 76254 Ketones neg DateTime(Free Text in Aprima) URINALYSIS NONAUTO W/O SCOPE 86689 Urobilinogen neg DateTime(Free Text in Aprima) URINALYSIS NONAUTO W/O SCOPE 01093 Nitrite postive DateTime(Free Text in Aprima) URINALYSIS NONAUTO W/O SCOPE 38917 Leukocytes 3+ DateTime(Free Text in Aprima) URINALYSIS NONAUTO W/O SCOPE 87176 Specific [place] 1.030 DateTime(Free Text in Aprima) URINALYSIS NONAUTO W/O SCOPE 63010 PH 6 DateTime(Free Text in Aprima) URINALYSIS NONAUTO W/O SCOPE 51395 GLUCOSE neg DateTime(Free Text in Aprima) URINALYSIS NONAUTO W/O SCOPE 91530 Protein neg DateTime(Free Text in Aprima) URINALYSIS NONAUTO W/O SCOPE 99559 Blood neg DateTime(Free Text in Aprima) URINALYSIS NONAUTO W/O SCOPE 12335 Bilirubin neg DateTime(Free Text in Aprima) URINALYSIS NONAUTO W/O SCOPE 68425 Ketones neg DateTime(Free Text in Aprima) URINALYSIS NONAUTO W/O SCOPE 31119 Urobilinogen neg DateTime(Free Text in Aprima) URINALYSIS NONAUTO W/O SCOPE 12188 Nitrite neg DateTime(Free Text in Aprima) URINALYSIS NONAUTO W/O SCOPE 12122 Leukocytes trace DateTime(Free Text in Aprima) URINALYSIS NONAUTO W/O SCOPE 64672 Specific [place] 1.005 DateTime(Free Text in Aprima) URINALYSIS NONAUTO W/O SCOPE 66265 PH 5 DateTime(Free Text in Aprima) URINALYSIS NONAUTO W/O SCOPE 45752 GLUCOSE neg DateTime(Free Text in Aprima) URINALYSIS NONAUTO W/O SCOPE 16399 Protein neg DateTime(Free Text in Aprima) URINALYSIS NONAUTO W/O SCOPE 53126 Blood neg DateTime(Free Text in Aprima) URINALYSIS NONAUTO W/O SCOPE 90294 Bilirubin neg DateTime(Free Text in Aprima) URINALYSIS NONAUTO W/O SCOPE 21025 Ketones neg DateTime(Free Text in Aprima) URINALYSIS NONAUTO W/O SCOPE 25201 Urobilinogen neg DateTime(Free Text in Aprima) URINALYSIS NONAUTO W/O SCOPE 68542 Nitrite neg DateTime(Free Text in Aprima) URINALYSIS NONAUTO W/O SCOPE 40914 Leukocytes neg DateTime(Free Text in Aprima) UA 22907 Specific [place] 1.030 DateTime(Free Text in Aprima) UA 47719 PH 5 DateTime(Free Text in Aprima) UA 39489 GLUCOSE neg DateTime(Free Text in Aprima) UA 71813 Protein trace DateTime(Free Text in Aprima) UA 26519 Blood large DateTime(Free Text in Aprima) UA 49276 Bilirubin neg DateTime(Free Text in Aprima) UA 76266 Ketones neg DateTime(Free Text in Aprima) UA 20142 Urobilinogen neg DateTime(Free Text in Aprima) UA 62204 Nitrite neg DateTime(Free Text in Aprima) UA 65572 Leukocytes large DateTime(Free Text in Apr) Review of Systems System Result Effective Dates [...] jauregui 01/07/2015 None Full Exam - General [facility] Psychiatric orientation/consciousness Overall: oriented to person, place [...] Procedure Codes Date DESTRUCT PREMALG LESION CPT-4: 32443Qbddveh 12/05/2016 DESTRUCT PREMALG LES 2-14 CPT-4: 89913Lvvvfdf 12/05/2016 URINALYSIS NONAUTO W/O SCOPE CPT-4: 04800Wpklsnp 11/28/2016 ROCEPHIN, PER 250 MG CPT-4: B7253Flhdxjv 11/28/2016 PPPS, SUBSEQ VISIT CPT-4: U2509Nrsuzji 11/07/2016 THER/PROPH/DIAG INJ SC/IM CPT-4: 27582Voucmbx 11/07/2016 TRIAMCINOLONE ACET INJ NOS CPT-4: T2756Sqjwckr 11/07/2016 ROCEPHIN, PER 250 MG CPT-4: E9965Xxrgydk 11/07/2016 THER/PROPH/DIAG INJ SC/IM CPT-4: 52472Eeaczgn 08/15/2016 TRIAMCINOLONE ACET INJ NOS CPT-4: J4202Baqjeww 08/15/2016 ROCEPHIN, PER 250 MG CPT-4: O2294Voqilgv 08/15/2016 URINALYSIS NONAUTO W/O SCOPE CPT-4: 84092Outkrjf 05/05/2016 ROCEPHIN, PER 250 MG CPT-4: T9615Xxsdsoo 12/07/2015 TRIAMCINOLONE ACET INJ NOS CPT-4: P7006Djgdlmt 11/24/2015 ROCEPHIN, PER 250 MG CPT-4: Y7793Txopkvo 11/24/2015 THER/PROPH/DIAG INJ SC/IM CPT-4: 63601Ivaxvnt 11/24/2015 THER/PROPH/DIAG INJ SC/IM CPT-4: 02521Pvtikkm 08/27/2015 KETOROLAC TROMETHAMINE INJ CPT-4: G5569Ktrxtdm 08/27/2015 PROMETHAZINE HCL INJECTION CPT-4: K2333Lduxbdi 08/27/2015 THER/PROPH/DIAG INJ SC/IM CPT-4: 60434Qwvkicf 08/10/2015 TRIAMCINOLONE ACET INJ NOS CPT-4: S5203Aproytg 08/10/2015 ROCEPHIN, PER 250 MG CPT-4: T4167Cgurzsy 08/10/2015 C WOUN RTS (CULTURE OTHR SPECIMN AEROBIC) CPT-4: 07485Zhejmpd 07/28/2015 THER/PROPH/DIAG INJ SC/IM CPT-4: 88768Rscblql 03/19/2015 TRIAMCINOLONE ACET INJ NOS CPT-4: M1991Llllhli 03/19/2015 ROCEPHIN, PER 250 MG CPT-4: Y5706Twsgkdf 06/23/2014 TRIAMCINOLONE ACET INJ NOS CPT-4: D8041Cdzigjy 06/23/2014 INJ TRIGGER POINT 1/2 MUSCL CPT-4: 78089Lcjfnkf 06/05/2014 URINALYSIS NONAUTO W/O SCOPE CPT-4: 96161Scphsze 02/11/2014 URINALYSIS NONAUTO W/O SCOPE CPT-4: 03019Rerzazr 10/15/2013 ROCEPHIN, PER 250 MG CPT-4: O8559Cwsxdgv 09/24/2013 THER/PROPH/DIAG INJ SC/IM CPT-4: 90758Qazipdb 09/19/2013 ROCEPHIN, PER 250 MG CPT-4: X8591Puwokyv 09/19/2013 PRESCRIP TRANSMIT VIA ERX SY CPT-4: R5683Tvibyjf 08/05/2013 ROCEPHIN, PER 250 MG CPT-4: Y1011Rnqohvv 07/10/2013 THER/PROPH/DIAG INJ SC/IM CPT-4: 28811Ugkehjh 07/10/2013 TRIAMCINOLONE ACET INJ NOS CPT-4: O7886Lihhrwq 07/10/2013 PRESCRIP TRANSMIT VIA ERX SY CPT-4: B6672Hdgvswn 07/10/2013 [id number] EST. PATIENT, LEVEL III CPT-4: 70127Otdphcj 06/03/2013 PRESCRIP TRANSMIT VIA ERX SY CPT-4: H3104Ozysbge 06/03/2013 PRESCRIP TRANSMIT VIA ERX SY CPT-4: A7654Enurntc 05/07/2013 ROUTINE VENIPUNCTURE CPT-4: 77271Zefrjjj 04/30/2013 ROUTINE VENIPUNCTURE CPT-4: 96658Esuuavy 11/29/2012 TRIAMCINOLONE ACET INJ NOS CPT-4: P0980Pxvmyrf 09/24/2012 THER/PROPH/DIAG INJ SC/IM CPT-4: 84845Lmhajdm 09/24/2012 URINALYSIS NONAUTO W/O SCOPE CPT-4: 59912Qdspxib 09/24/2012 PRESCRIP TRANSMIT VIA ERX SY CPT-4: T3509Bioyvkf 09/24/2012 PRESCRIP TRANSMIT VIA ERX SY CPT-4: K2739Hyhkhvn 09/10/2012 PRESCRIP TRANSMIT VIA ERX SY CPT-4: G9050Wttwczw 08/08/2012 ROUTINE VENIPUNCTURE CPT-4: 08821Ytzjfzj 08/07/2012 ROUTINE VENIPUNCTURE CPT-4: 30824Pplzabc 02/16/2012 URINALYSIS NONAUTO W/O SCOPE CPT-4: 18935Vjwbexg 02/15/2012 ROCEPHIN, PER 250 MG CPT-4: P9574Zyvgmwf 02/15/2012 PRESCRIP TRANSMIT VIA ERX SY CPT-4: J0693Ejauqvz 02/15/2012 ROUTINE VENIPUNCTURE CPT-4: 30925Ssrxxmy 11/08/2011 ROCEPHIN, PER 250 MG CPT-4: P2386Ilptinv 07/14/2011 THER/PROPH/DIAG INJ SC/IM CPT-4: 62495Xnkwgcl 07/14/2011 Influenza Virus Vaccine, Split Virus, >3 Yrs, IM CPT-4: 28566Erqwwvf 05/23/2011 IMMUNIZATION ADMIN CPT-4: 02157Usvnoua 05/23/2011 THER/PROPH/DIAG INJ SC/IM CPT-4: 72954Ozyyiik 05/03/2011 ROCEPHIN, PER 250 MG CPT-4: T5246Zfkexdk 05/03/2011 TRIAMCINOLONE ACET INJ NOS CPT-4: I8007Dcqehvr 05/03/2011 Vital Signs Date Vital 02/20/2017 Blood Pressure 1: 142/80 Code: 8480-6 BMI: 30.9 Code: 00596-8 Heart Rate 1: 75 bpm Height: 4'11" SpO2: 97% Weight: 153 lbs 02/06/2017 Blood Pressure 1: 138/90 Code: 8480-6 BMI: 31.5 Code: 91382-4 Heart Rate 1: 61 bpm Height: 4'11" SpO2: 98% Weight: 156 lbs 12/05/2016 Blood Pressure 1: 122/72 Code: 8480-6 Heart Rate 1: 59 bpm Height: 4'11" SpO2: 98% Weight: 11/28/2016 Blood Pressure 1: 154/86 Code: 8480-6 BMI: 31.3 Code: 37423-4 Heart Rate 1: 64 bpm Height: 4'11" SpO2: 94% Temperature: 36.2 (C) / 97.2 (F) Weight: 155 lbs 11/07/2016 Blood Pressure 1: 128/64 Code: 8480-6 BMI: 31.5 Code: 63016-8 Heart Rate 1: 59 bpm Height: 4'11" SpO2: 97% Weight: 156 lbs 08/15/2016 Blood Pressure 1: 110/62 Code: 8480-6 BMI: 31.5 Code: 07267-4 Heart Rate 1: 76 bpm Height: 4'11" SpO2: 97% Weight: 156 lbs 06/07/2016 Blood Pressure 1: 120/80 Code: 8480-6 BMI: 32.9 Code: 54347-4 Heart Rate 1: 63 bpm Height: 4'11" SpO2: 93% Temperature: 36.5 (C) / 97.7 (F) Weight: 163 lbs 03/15/2016 Blood Pressure 1: 90/42 Code: 8480-6 Heart Rate 1: 65 bpm SpO2: 94% 03/14/2016 Blood Pressure 1: 188/110 Code: 8480-6 Heart Rate 1: 68 bpm SpO2: 96% 02/22/2016 Blood Pressure 1: 158/80 Code: 8480-6 BMI: 32.7 Code: 38706-9 Heart Rate 1: 71 bpm Height: 4'11" SpO2: 95% Weight: 162 lbs 12/07/2015 Blood Pressure 1: 140/88 Code: 8480-6 BMI: 32.9 Code: 11650-7 Heart Rate 1: 99 bpm Height: 4'11" SpO2: 94% Temperature: 35.9 (C) / 96.6 (F) Weight: 163 lbs 11/24/2015 Blood Pressure 1: 144/78 Code: 8480-6 BMI: 33.7 Code: 92854-6 Heart Rate 1: 60 bpm Height: 4'11" SpO2: 98% Temperature: 36.6 (C) / 97.9 (F) Weight: 167 lbs 08/27/2015 Blood Pressure 1: 164/82 Code: 8480-6 BMI: 32.3 Code: 86868-8 Heart Rate 1: 60 bpm Height: 4'11" SpO2: 93% Weight: 160 lbs 08/10/2015 Blood Pressure 1: 130/60 Code: 8480-6 BMI: 32.5 Code: 83957-1 Heart Rate 1: 64 bpm Height: 4'11" SpO2: 97% Weight: 161 lbs 07/28/2015 Blood Pressure 1: 124/68 Code: 8480-6 BMI: 32.5 Code: 19438-4 Heart Rate 1: 69 bpm Height: 4'11" SpO2: 97% Weight: 161 lbs 06/11/2015 Blood Pressure 1: 148/80 Code: 8480-6 BMI: 32.9 Code: 25182-3 Heart Rate 1: 70 bpm Height: 4'11" SpO2: 94% Weight: 163 lbs 03/19/2015 Blood Pressure 1: 150/102 Code: 8480-6 Blood Pressure 2: 152/92 Code: 8480-6 BMI: 32.5 Code: 15332-5 Heart Rate 1: 71 bpm Height: 4'11" SpO2: 96% Weight: 161 lbs 01/07/2015 Blood Pressure 1: 126/84 Code: 8480-6 Heart Rate 1: 80 bpm Height: 4'11" 09/23/2014 Blood Pressure 1: 112/72 Code: 8480-6 BMI: 33.9 Code: 63794-8 Heart Rate 1: 72 bpm Height: 4'11" Weight: 168 lbs 08/05/2014 Blood Pressure 1: 140/86 Code: 8480-6 BMI: 33.3 Code: 55997-2 Height: 4'11" Weight: 165 lbs 06/23/2014 Blood Pressure 1: 132/70 Code: 8480-6 BMI: 32.9 Code: 88887-1 Heart Rate 1: 58 bpm Height: 4'11" Temperature: 36.0 (C) / 96.8 (F) Weight: 163 lbs 06/05/2014 Blood Pressure 1: 121/85 Code: 8480-6 BMI: 34.3 Code: 66672-7 Height: 4'11" Weight: 170 lbs 04/03/2014 Blood Pressure 1: 128/80 Code: 8480-6 Heart Rate 1: 88 bpm Weight: 167 lbs 03/07/2014 Blood Pressure 1: 122/82 Code: 8480-6 BMI: 33.9 Code: 71053-4 Heart Rate 1: 68 bpm Height: 4'11" Weight: 168 lbs 11/21/2013 Blood Pressure 1: 100/58 Code: 8480-6 BMI: 33.7 Code: 21767-7 Heart Rate 1: 64 bpm Height: 4'11" Weight: 167 lbs 09/24/2013 Blood Pressure 1: 148/88 Code: 8480-6 Heart Rate 1: 68 bpm Weight: 09/19/2013 Blood Pressure 1: 120/80 Code: 8480-6 BMI: 33.9 Code: 54209-4 Heart Rate 1: 80 bpm Height: 4'11" Temperature: 36.9 (C) / 98.5 (F) Weight: 168 lbs 08/05/2013 Blood Pressure 1: 128/80 Code: 8480-6 BMI: 34.3 Code: 27990-1 Heart Rate 1: 64 bpm Height: 4'11" Temperature: 36.2 (C) / 97.2 (F) Weight: 170 lbs 07/10/2013 Blood Pressure 1: 120/84 Code: 8480-6 BMI: 36.0 Code: 33333-5 Heart Rate 1: 90 bpm Height: 4'11" SpO2: 97% Temperature: 36.8 (C) / 98.2 (F) Weight: 178 lbs 06/03/2013 Blood Pressure 1: 136/94 Code: 8480-6 BMI: 34.7 Code: 52509-5 Heart Rate 1: 68 bpm Height: 4'11" Temperature: 36.7 (C) / 98.0 (F) Weight: 172 lbs 05/13/2013 Blood Pressure 1: 132/90 Code: 8480-6 Heart Rate 1: 68 bpm 05/07/2013 Blood Pressure 1: 168/100 Code: 8480-6 BMI: 34.3 Code: 04625-2 Heart Rate 1: 76 bpm Height: 4'11" Weight: 170 lbs 12/03/2012 Blood Pressure 1: 142/78 Code: 8480-6 BMI: 33.5 Code: 88339-6 Heart Rate 1: 76 bpm Height: 4'11" Weight: 166 lbs 09/24/2012 Blood Pressure 1: 116/70 Code: 8480-6 Heart Rate 1: 68 bpm Respiratory Rate: 16 bpm Temperature: 36.9 (C) / 98.4 (F) Weight: 162 lbs 09/10/2012 Blood Pressure 1: 116/80 Code: 8480-6 BMI: 33.7 Code: 55964-4 Heart Rate 1: 76 bpm Height: 4'11" [...] 1: 149/85 Code: 8480-6 BMI: 32.9 Code: 05523-1 Heart Rate 1: 79 bpm Height: 4'11" Weight: 164 lbs 05/03/2011 Blood Pressure 1: 122/79 Code: 8480-6 BMI: 30.8 Code: 87515-6 Heart Rate 1: 72 bpm Height: 5'1" Weight: 163 lbs 04/25/2011 Blood Pressure 1: 137/84 Code: 8480-6 BMI: 31.0 Code: 22414-8 Heart Rate 1: 63 bpm Height: 5'1" [...] days ago 02/15/2012 while visiting mother in [place] had uti and was put on pyridum [...] surg in december. then took trip to [facility] to see mother and has [...] Quality chronic 08/01/2011 states went shopping on [employer] over night without taking any of medications [...] Performer Location Codes Date EST. PATIENT, LEVEL IV Diagnosis: Epigastric pain[ICD10: R10.13] Diagnosis: Left upper quadrant pain[ICD10: R10.12] Diagnosis: Left lower quadrant pain[ICD10: R10.32] Isabelle Goldman MD, [facility] CPT-4: 22925 02/20/[id number]) [id number] EST. PATIENT, LEVEL IV Diagnosis: Generalized anxiety disorder[ICD10: F41.1] Diagnosis: Major depressive disorder, recurrent, moderate[ICD10: F33.1] Diagnosis: Left upper quadrant pain[ICD10: R10.12] Diagnosis: Epigastric pain[ICD10: R10.13] Diagnosis: Actinic keratosis[ICD10: L57.0] [facility] CPT-4: 33348 02/06/2017 [id number] EST. PATIENT, LEVEL III Diagnosis: Actinic keratosis[ICD10: L57.0] Diagnosis: Major depressive disorder, recurrent, moderate[ICD10: F33.1] Melba Goldman MD, [facility] CPT-4: 40302 12/05/2016 ([id number]) 30822 EST. PATIENT, LEVEL III Diagnosis: Acute recurrent maxillary sinusitis[ICD10: J01.01] Diagnosis: Dysuria[ICD10: R30.0] Shahida Goldman MD, [facility] CPT-4: 24468 11/28/2016 53405 EST. PATIENT, LEVEL IV Diagnosis: Other acute sinusitis[ICD10: J01.80] Diagnosis: Acute laryngopharyngitis[ICD10: J06.0] Diagnosis: Other allergic rhinitis[ICD10: J30.89] Isabelle Goldman MD, [facility] CPT- 4: 17400 08/15/2016 ([id number]) 82162 EST. PATIENT, LEVEL III Diagnosis: Acute recurrent maxillary sinusitis[ICD10: J01.01] Diagnosis: Low back pain[ICD10: M54.5] Shahida Goldman MD, [facility] CPT-4: 71188 06/07/2016 ([id number]) Miscellaneous no charge Diagnosis: Essential (primary) hypertension[ICD10: I10] Shahida Goldman MD, [facility] CPT-4: 40614 03/15/2016 88637 EST. PATIENT, LEVEL IV Diagnosis: Essential (primary) hypertension[ICD10: I10] Diagnosis: Headache[ICD10: R51] Diagnosis: Generalized anxiety disorder[ICD10: F41.1] Shahida Goldman MD, [facility] CPT-4: 18693 03/14/2016 [id number] EST. PATIENT, LEVEL III Diagnosis: Laceration without foreign body, left lower leg, initial encounter[ICD10: S81.812A] Isabelle Goldman MD, [facility] CPT-4: 05426 02/22/2016 ([id number]) 05185 EST. PATIENT, LEVEL III Diagnosis: Acute recurrent maxillary sinusitis[ICD10: J01.01] Diagnosis: Cough[ICD10: R05] Diagnosis: Allergic rhinitis due to pollen[ICD10: J30.1] Shahida Goldman MD, [facility] CPT-4: 79633 12/07/2015 ([id number]) 54014 EST. PATIENT, LEVEL IV Diagnosis: Essential (primary) hypertension[ICD10: I10] Diagnosis: Acute recurrent maxillary sinusitis[ICD10: J01.01] Diagnosis: Generalized anxiety disorder[ICD10: F41.1] Diagnosis: Cervicalgia[ICD10: M54.2] Diagnosis: Generalized intra-abdominal and pelvic swelling, mass and lump[ICD10: R19.07] Melba Goldman MD, [facility] CPT-4: 75227 11/24/2015 30711 EST. PATIENT, LEVEL III Diagnosis: Other migraine, intractable, without status migrainosus[ICD10: G43.819] Isabelle Goldman MD, [facility] CPT-4: 89002 08/27/2015 39893 EST. PATIENT, LEVEL III Diagnosis: Acute recurrent maxillary sinusitis[ICD10: J01.01] Diagnosis: Candidal stomatitis[ICD10: B37.0] Diagnosis: Acute laryngopharyngitis[ICD10: J06.0] Isabelle Goldman MD, [facility] CPT- 4: 07866 08/10/2015 31711 EST. PATIENT, LEVEL III Diagnosis: Superficial foreign body of left hand, initial encounter[ICD10: S60.552A] Melba Goldman MD, [facility] CPT-4: 88059 07/28/2015 ([id number]) 81402 EST. PATIENT, LEVEL III Diagnosis: Essential (primary) hypertension[ICD10: I10] Diagnosis: Tinea cruris[ICD10: B35.6] Diagnosis: Abnormal levels of other serum enzymes[ICD10: R74.8] Shahida Goldman MD, [facility] CPT-4: 81043 06/11/2015 ([id number]) 96674 EST. PATIENT, LEVEL IV Diagnosis: ESSENTIAL HYPERTENSION[ICD9: 401.9] Diagnosis: Hypothyroid[ICD9: 244.9] Diagnosis: ALLERGIC RHINITIS[ICD9: 477.9] Diagnosis: Anxiety[ICD9: 300.00] Diagnosis: Sleep apnea[ICD9: 780.57] Shahida Goldman MD, [facility] CPT-4: 72887 03/19/2015 ([id number]) 97114 EST. PATIENT, LEVEL III Diagnosis: ACUTE SINUSITIS[ICD9: 461.9] Celi Goldman MD, [facility] CPT-4: 31405 01/07/2015 ([id number]) 53592 EST. PATIENT, LEVEL III Diagnosis: Conjunctivitis[ICD9: 372.30] Shahida Goldman MD, [facility] CPT-4: 74922 09/23/2014 25011 EST. PATIENT, LEVEL II Diagnosis: Noninfected skin tear of leg[ICD9: 891.0] Shahida Goldman MD, [facility] CPT-4: 21649 08/05/2014 ([id number]) 18509 EST. PATIENT, LEVEL III Diagnosis: Chronic maxillary sinusitis[ICD9: 473.0] Shahida Goldman MD, [facility] CPT-4: 57542 06/23/2014 95915 EST. PATIENT, LEVEL II Diagnosis: Headache[ICD9: 784.0] Shahida Goldman MD, [facility] CPT-4: 21660 06/05/2014 ([id number]) 02622 EST. PATIENT, LEVEL III Diagnosis: Abrasion of right leg[ICD9: 916.0] Diagnosis: Headache[ICD9: 784.0] Diagnosis: ALLERGIC RHINITIS[ICD9: 477.9] Shahida Goldman MD, [facility] CPT-4: 61723 04/03/2014 44631 EST. PATIENT, LEVEL II Diagnosis: Tinea corporis[ICD9: 110.5] Diagnosis: Exposure to scabies[ICD9: V01.89] Shahida Goldman MD, [facility] CPT- 4: 31803 03/07/2014 ([id number]) 24869 EST. PATIENT, LEVEL III Diagnosis: ESSENTIAL HYPERTENSION[SNOMED: 02411087] Diagnosis: OSTEOARTH NOS-UNSPEC[ICD9: 715.90] Diagnosis: Lumbago[ICD9: 724.2] Diagnosis: Cervicalgia[ICD9: 723.1] Shahida Goldman MD, [facility] CPT-4: 10466 11/21/2013 ([id number]) 28631 EST. PATIENT, LEVEL III Diagnosis: DEPRESSIVE DISORDER NEC[ICD9: 311] Diagnosis: Paronychia[ICD9: 681.9] Melba Goldman MD, [facility] CPT-4: 50141 09/24/2013 ([id number]) 66956 EST. PATIENT, LEVEL III Diagnosis: Paronychia[ICD9: 681.9] Diagnosis: Cellulitis[ICD9: 682.9] Melba Goldman MD, [facility] CPT-4: 20720 09/19/2013 ([id number]) 67232 EST. PATIENT, LEVEL III Diagnosis: Conjunctivitis[ICD9: 372.30] Diagnosis: Thrush[ICD9: 112.0] Shahida Goldman MD, [facility] CPT-4: 51309 08/05/2013 ([id number]) 98723 EST. PATIENT, LEVEL III Diagnosis: ACUTE MAXILLARY SINUSITIS[ICD9: 461.0] Diagnosis: COUGH[ICD9: 786.2] Diagnosis: Insomnia[ICD9: 780.52] Diagnosis: ESOPHAGEAL REFLUX[ICD9: 530.81] Melba Goldman MD, [facility] CPT-4: 80487 07/10/2013 ([id number]) Miscellaneous no charge Diagnosis: ESSENTIAL HYPERTENSION[SNOMED: 24891883] Melba Goldman MD, [facility] CPT-4: 38348 05/13/2013 ([id number]) 62161 EST. PATIENT, LEVEL IV Diagnosis: ESSENTIAL HYPERTENSION[SNOMED: 17713645] Diagnosis: HYPOTHYROIDISM[ICD9: 244.9] Diagnosis: OSTEOARTH NOS-UNSPEC[ICD9: 715.90] Melba Goldman MD, [facility] CPT- 4: 03235 05/07/2013 ([id number]) 02563 EST. PATIENT, LEVEL IV Diagnosis: Osteoarthritis[ICD9: 715.90] Diagnosis: Knee pain, bilateral[ICD9: 719.46] Diagnosis: Hip pain[ICD9: 719.45] Melba Goldman MD, [facility] CPT-4: 18754 12/03/2012 ([id number]) 35105 EST. PATIENT, LEVEL III Diagnosis: Thrush[ICD9: 112.0] Melba Goldman MD, [facility] CPT-4: 76123 09/24/2012 ([id number]) 79607 EST. PATIENT, LEVEL IV Diagnosis: ESSENTIAL HYPERTENSION[SNOMED: 02904486] Diagnosis: Thrush[ICD9: 112.0] Diagnosis: Sleep apnea[ICD9: 780.57] Melba Goldman MD, [facility] CPT-4: 98484 09/10/2012 ([id number]) 10214 EST. PATIENT, LEVEL IV Diagnosis: Esophageal reflux[ICD9: 530.81] Diagnosis: Hypothyroid[ICD9: 244.9] Diagnosis: JOINT PAIN-MULT JOINTS[ICD9: 719.49] Diagnosis: ALLERGIC RHINITIS[ICD9: 477.9] Melba Goldman MD, [facility] CPT-4: 84191 08/08/2012 ([id number]) 06264 EST. PATIENT, LEVEL IV Diagnosis: Urinary frequency[ICD9: 788.41] Diagnosis: EDEMA[ICD9: 782.3] Diagnosis: HYPOTHYROIDISM[ICD9: 244.9] Diagnosis: Fatigue[ICD9: 780.79] Melba Goldman MD, [facility] CPT-4: 59957 02/15/2012 ([id number]) 13466 EST. PATIENT, LEVEL IV Diagnosis: Abdominal pain[ICD9: 789.00] Diagnosis: Fatigue[ICD9: 780.79] Diagnosis: Nausea[ICD9: 787.02] Melba Goldman MD, [facility] CPT-4: 58377 11/10/2011 54005 EST. PATIENT, LEVEL IV Diagnosis: ESSENTIAL HYPERTENSION[SNOMED: 37357627] Diagnosis: DIARRHEA[ICD9: 787.91] Diagnosis: DEPRESSIVE DISORDER NEC[ICD9: 311] Diagnosis: Irritable bowel disease[ICD9: 564.1] Mleba Goldman MD, [facility] CPT- 4: 26436 08/01/2011 13706 EST. PATIENT, LEVEL III Diagnosis: ACUTE SINUSITIS[ICD9: 461.9] Diagnosis: Cough[ICD9: 786.2] Shahida Goldman MD, [facility] CPT-4: 87101 07/14/2011 60382 EST. PATIENT, LEVEL IV Diagnosis: VACCIN FOR INFLUENZA[ICD9: V04.81] Diagnosis: ESSENTIAL HYPERTENSION[SNOMED: 23517618] Diagnosis: GENERALIZED ANXIETY DISEASE[ICD9: 300.02] Diagnosis: SLEEP DISTURBANCES[ICD9: 780.50] [facility] CPT- 4: 55327 05/23/2011 11685 EST. PATIENT, LEVEL III Diagnosis: ACUTE SINUSITIS[ICD9: 461.9] Diagnosis: ALLERGIC RHINITIS[ICD9: 477.9] Diagnosis: Cough[ICD9: 786.2] [facility] CPT-4: 21045 05/03/2011 97234 EST. PATIENT, LEVEL IV Diagnosis: ESSENTIAL HYPERTENSION[SNOMED: 85255518] Diagnosis: DEPRESSIVE DISORDER NEC[ICD9: 311] Diagnosis: Fatigue[ICD9: 780.79] [facility] CPT-4: 09916 04/25/2011 Plan of Care Planned Activity Notes Codes Status Date Visit Plan: Abdominal pain/Diverticulitis - pt sent [...] not improving. 02/20/2017 Appointment: Isabelle Orozco WPtel: [address] [place], [place] [phone] (30 min) [facility] 02/20/2017 Patient Education: Patient Medication Summary Completed [...] antidepressant has been appropriately prescribed for this patient.laurenix - 10mg one pill daily in the morning. stop lexapro and start on the trintellixSkin lesion - rx for efudex - pt instructed on use 02/06/2017 Appointment: Melba Goldman WPtel: [facility]5 [facility]66[facility] (15 min) Moderate 02/06/2017 Patient Education: Patient [...] this patient. 12/05/2016 Appointment: Melba Goldman WPtel: [facility]5 [facility] Surgical Procedure 12/05/2016 Patient Education: Patient Medication Summary Completed 12/05/2016 Visit Plan: Sinusitis - Pt has acute infection - pain in face, maxillary region, Pt informed to use decongestant, RX given to patient, sinus rinses also recommended. Call if symptoms do not show improvement.Dysuria-culture urine 11/28/2016 Appointment: Shahida Man[phone] [phone] (15 min) Moderate 11/28/2016 Patient Education: Patient [...] control. 11/07/2016 Appointment: Isabelle Orozco [facility]el[phone] [place] [facility] - Annual Wellness Visit 11/07/2016 Patient [...] 08/15/2016 Appointment: Isabelle Orozco WPtel: [phone] [facility] (15 min) Moderate 08/15/2016 Patient Education: [...] pain use. 06/07/2016 Appointment: Shahida Manzo WPtel: [facility]6 [phone] (10 min) Simple 06/07/2016 Patient [...] today 03/14/2016 Appointment: Shahida Manzo WPtel: [phone] [phone] (15 min) Moderate 03/14/2016 Patient Education: Patient Medication Summary Completed 03/14/2016 Care Plan: COMPLETE CBC AUTOMATED LOINC : 05240-9 Pending 03/14/2016 Visit Plan: Cellulitis - The patient was instructed in appropriate wound care. The patient was instructed to use the antibiotic ointment as per RX. The patient is to call for any change in symptoms, increase in size of the lesion, increase in pain. 02/22/2016 Appointment: Isabel[facility] Orozco [phone] [place] (15 min) Moderate 02/22/2016 Patient Education: Patient [...] pt to follow up with specialist at [place] [address] states - she needs to pursue treatment.Anxietly - medications unchanged.colonoscopy with dr. dai 11/24/2015 Appointment: Melba Goldman WPtel: [phone] [facility] (30 min) [facility] 11/24/2015 Patient Education: Patient Medication Summary Completed 11/24/2015 Patient Education: Obesity Completed 11/24/2015 Patient Education: Hypertension Completed 11/24/2015 Patient Education: .Cervicalgia Neck Pain Completed 11/24/2015 Care Plan: Referral Order SNOMED-CT : [id number] Ordered 11/24/2015 Visit Plan: Acute Migraine - [...] Medication Summary Completed 07/28/2015 Care Plan: Geraldine DAVID Pending 07/28/2015 Visit Plan: HTN-improved today-no change in medicationsTinea-start clotrimazole and diflucan Elevated ALT-check labs today to monitor 06/11/2015 Appointment: Shahida Manzo [facility]el[facility] [phone] [phone] (15 min) Moderate 06/11/2015 Patient Education: Patient [...] OFFICE Sleep apnea-patient needs new CPAP-will contact [facility] Pt reports that she uses [...] OFFICE Sleep apnea-patient needs new CPAP-will contact [facility] patient Pt reports that she [...] OFFICE Sleep apnea-patient needs new CPAP-will contact [facility] 03/19/2015 Appointment: (15 min) Moderate [...] Keep areas dryExposure to scabies-RX sent to [facility]. 03/07/2014 Appointment: Melba Goldman WPtel: [facility] [place] [place] rash 03/07/2014 Patient Education: Patient Medication [...] about change in blood pressure readings at home.Asttmrp-fnsajgpcpii-cutfojjj duragesic patch-appt with Dr Ortiz for pain management 11/21/2013 Appointment: Shahida Manzo WPtel: [address] [place], [place] [phone] Follow up 11/21/2013 Patient Education: Patient Medication Summary Completed 11/21/2013 Patient Education: Hypertension Completed 11/21/2013 Patient Education: .Cervicalgia Neck Pain Completed 11/21/2013 Appointment: Melba Goldman WPtel: [address] [place], [place] [phone] Other 11/19/2013 Appointment: Melba Goldman WPtel: [address] [place], [place] [phone] [place] Follow up 11/06/2013 Appointment: Melba Goldman WPtel: [address] [place], [place] [phone] Lab Draw 10/15/2013 Patient Education: Patient Medication [...] AT BEDTIME 09/24/2013 Appointment: Shahida Manzo WPtel: [facility] Other 09/24/2013 Patient Education: Patient Medication Summary Completed 09/24/2013 Visit Plan: Paronychia/Cellulitis - continue with oral antibiotics as previously directed, return to clinic as previously directed, call for acute change in symptoms, worsening redness, warmth, discharge. 09/19/2013 Appointment: Melba Goldman WPtel: [facility]5 [facility] Other 09/19/2013 Patient Education: Patient Medication Summary Completed 09/19/2013 Visit Plan: Conjunctivitis - rx for eye drops/lube sent electronically to the patient's pharmacy. The patient has been instructed to cleanse affected eye with warm washcloth, then place medication into affected eye four times daily.Thrush- refill nystatin-call if symptoms do not resolve 08/05/2013 Appointment: Shahida Manzo WPtel: [facility]5 [phone] Sick 08/05/2013 Patient Education: Patient Medication Summary [...] show improvement. 06/03/2013 Appointment: Melba Goldman WPtel: [address] [place] [id number] Follow up 06/03/2013 Patient Education: Patient Medication Summary Completed 06/03/2013 Patient Education: Hypertension Completed 06/03/2013 Appointment: Melba Goldman WPtel: [address] [place] [phone] [place] Nurse Visit 05/13/2013 Patient Education: Patient [...] control. 05/07/2013 Appointment: Melba Goldman WPtel: [phone] [facility] Follow up 05/07/2013 Patient Education: Patient Medication Summary Completed 05/07/2013 Patient Education: Hypertension Completed 05/07/2013 Patient Education: Patient Medication Summary Completed 04/30/2013 Patient Education: Hypertension Completed 04/30/2013 Visit Plan: Arthritis- occasionally uncontrolled symptoms- recommend pt to take antiinflammatory as directed for pain control.Use tylenol for break through pain symptoms. 12/03/2012 Appointment: Melba Goldman WPtel: [phone] [facility] Follow up 12/03/2012 Patient Education: Patient [...] not resolve 09/24/2012 Appointment: Shahida Manzo [facility]Ptel[facility] [phone] [phone] [facility] 09/24/2012 Patient Education: Patient Medication [...] diflucan 09/10/2012 Appointment: Melba Goldman WPtel: [phone] [facility] [place] Follow up 09/10/2012 Patient Education: Patient Medication [...] pain symptoms. 08/08/2012 Appointment: Shahida Manzo WPtel: [facility]5 [phone] Follow up 08/08/2012 Patient Education: Patient Medication Summary Completed 08/08/2012 Patient Education: Patient Medication Summary Completed 08/07/2012 Patient Education: Hypertension Completed 08/07/2012 Appointment: Melba Goldman WPtel: [facility]3 [facility] [place] Lab Draw 02/16/2012 Patient Education: [...] labs. 02/15/2012 Appointment: Melba Goldman WPtel: [phone] [facility] Other 02/15/2012 Patient Education: Patient Medication Summary Completed 02/15/2012 Visit Plan: Abdominal pain - ultrasound tomorrow AMnothing to eat before the ultrasound from 11pm tonight bland diet.Nausea - worse with fatty foods, recommended low fat/bland diet, call if symptoms worsening. 11/10/2011 Appointment: Melba Goldman WPtel: [phone] [facility] Other 11/10/2011 Patient Education: Patient Medication [...] stools. 08/01/2011 Appointment: Melba Goldman WPtel: [phone] [facility] Other 08/01/2011 Patient Education: Patient Medication Summary Completed 08/01/2011 Patient Education: High Blood Pressure: Essential Hypertension Completed 08/01/2011 Visit Plan: Sinusitis - Pt has acute infection - pain in face, maxillary region, Pt informed to use decongestant, RX given to patient, sinus rinses also recommended. Call if symptoms do not show improvement. Cough-tessalsathish dodieles 07/14/2011 Appointment: Shahida Manzo WPtel: [phone] [phone] Other 07/14/2011 [...] med 05/03/2011 Appointment: Shahida Manzo [facility]Ptel: [phone] [facility] [phone] Other 05/03/2011 Patient Education: Patient Medication Summary [...] we can imrpove her symptoms. 04/25/2011 Appointment: Jovany Shahida WPtel: [facility] [phone] Other 04/25/2011 Patient Education: Patient Medication Summary [...] OFFICE Sleep apnea-patient needs new CPAP-[facility] Pt reports that she uses [...] OFFICE Sleep apnea-patient needs new CPAP-[facility] contact [facility] Pt reports that she uses [...] OFFICE Sleep apnea-patient needs new CPAP-[facility] contact [facility] . Skin tear of left and [...] areas dry Exposure to scabies-RX sent to [facility]. Edarbi 40mg daily Labs now EKG [...] change in blood pressure readings at home. Gefwyso-ngxnqcrxusw-hlrouxjt duragesic patch-appt with Dr Ortiz for pain [...]
--- NOTE | 2019-03-08 13:31 | OPERATIVE REPORT ---
DATE OF SERVICE: COLONOSCOPY SUMMARY INDICATION FOR THE PROCEDURE: Screening colonoscopy. The patient was placed in left lateral decubitus position. Prior to undergoing colonoscopy, digital rectal evaluation was performed. Anal sphincter tone was normal and the perianal reflexes intact. No abnormalities noted on additional inspection of the anal canal or distal rectal vault. The colonoscope was then inserted into the rectum and under direct visualization advanced to the cecum. The cecum was identified by identification of the ileocecal valve, cecal strap and the appendiceal orifice. Photographic documentation was obtained. Careful inspection was made as the colonoscope was withdrawn. FINDINGS: There was no evidence for internal or external hemorrhoids. Present at the rectosigmoid junction was a diminutive hyperplastic appearing polyp. It was photographed and biopsied and ablated with no subsequent blood loss. Present throughout the sigmoid colon were moderate number of small to medium size diverticulum without evidence for diverticulitis. No other sigmoid colonic abnormalities were noted other than some haustral hypertrophy. The descending colon, splenic flexure, transverse colon, hepatic flexure, ascending colon and cecum were unremarkable. ASSESSMENT: One diminutive hyperplastic appearing polyp was removed via hot forceps from the rectosigmoid junction. We would not likely recommend future screening colonoscopy as long as there are no surprises on histopathology report. The patient did have moderate diverticular disease confined to the sigmoid colon without evidence for diverticulitis. No other significant abnormalities were noted on today's procedure. Job ID: [id number] DocumentID: [id number] Dictated Date: 03/08/2019 10:04:50 Counter Hop Date: 03/08/2019 13:31:10 Dictated By: FRANCINE LIN MD
--- OUTSIDE RECORDS SUMMARY | 2019-03-08 13:34 | XMS REPORT | CCD ---
Author Author [facility] Address [address] [place] [address] Phone Care Team Providers [facility] Representative Name Role Phone PP Unavailable CCM Unavailable Summary Purpose Interface Exchange Insurance Providers Payer name Policy type / Coverage type Covered constitution party ID Effective Begin Date Effective End Date [employer] Medicare Part B [id number] Unknown Family history Son Diagnosis Age At Onset Crohn's disease Unknown Brother Diagnosis Age At Onset Cardiovascular disease Unknown Mother Diagnosis Age At Onset Hypertension Unknown Father Diagnosis Age At Onset Cardiovascular disease Unknown Social History Social History Element Codes Description Effective Dates Marital status Unknown 04/22/2011 Number of children Unknown 3 1 son -Crohns 04/22/[address]: 760144713 Nonsmoker 04/22/2011 Allergies, Adverse Reactions, Alerts Allergies, [...] Fill Instructions Flagyl 500 mg tablet RxNorm: 124430 1 Tablet(s) PO TID 02/20/2017 03/01/2017 Active promethazine 25 mg tablet RxNorm: 268358 1 Tablet(s) PO TID as needed nausea 02/20/2017 03/01/2017 Active Cipro 500 mg tablet RxNorm: 418246 1 Tablet(s) PO BID 02/20/2017 03/01/2017 Active Flagyl 500 mg tablet RxNorm: 345994 1 Tablet(s) PO TID 02/09/2017 02/15/2017 Inactive Trintellix 10 mg tablet RxNorm: 0236611 1 Tablet(s) PO QAM 02/06/2017 03/07/2017 Active Efudex 5 % topical cream RxNorm: 549681 1 Application TOP BID use on skin spot on nose 02/06/2017 02/15/2017 Inactive Bystolic 10 mg tablet RxNorm: 369483 TAKE ONE TABLET BY MOUTH DAILY 02/03/2017 06/02/2017 Active Imitrex 50 mg tablet RxNorm: 144663 TAKE ONE TABLET BY MOUTH EVERY 8 HOURS NEEDED MAY REPEAT IN 1 HOUR OF INITIAL DOSE. DISCONTINUE FIORICET 12/22/2016 02/19/2017 Inactive Nexium 40 mg capsule,delayed release RxNorm: 630614 TAKE ONE CAPSULE BY MOUTH EVERY DAY 12/21/2016 09/16/2017 Active Lexapro 20 mg tablet RxNorm: 499829 Tablet(s) TAKE ONE TABLET BY MOUTH DAILY 12/05/2016 02/05/2017 Inactive hydrocodone 10 mg-acetaminophen 325 mg tablet RxNorm: 484362 Tablet(s) PO TAKE ONE TO TWO TABLETS BY MOUTH EVERY 6 HOURS NEEDED FOR PAIN 11/28/2016 No Stop Date Active (Appended: Controlled substance eRx refill - RxReferenceNumber: [id number]) Augmentin 875 mg-125 mg tablet RxNorm: 322639 1 Tablet(s) PO BID 11/28/2016 12/04/2016 Inactive ceftriaxone 500 mg solution for injection RxNorm: 0199108 1 Milliliter(s) Inj 11/28/2016 11/28/2016 Inactive prednisone 20 mg tablet RxNorm: 196006 2 Tablet(s) PO daily 11/28/2016 12/02/2016 Inactive Synthroid 100 mcg tablet RxNorm: 902916 1 Tablet(s) PO daily 11/21/2016 05/19/2017 Active Brand name only! trazodone 50 mg tablet RxNorm: 146503 TAKE 1 AND 1/2 TABLETS EVERY NIGHT AT BEDTIME , MAY INCREASE TO 2 TABLETS AT BEDTIME NEEDED 11/21/2016 02/16/2017 Inactive trazodone 50 mg tablet RxNorm: 078917 Tablet(s) TAKE 1 AND 1/2 TABLETS EVERY NIGHT AT BEDTIME , MAY INCREASE TO 2 TABLETS AT BEDTIME NEEDED 11/21/2016 11/20/2016 Inactive Synthroid 100 mcg tablet RxNorm: 417261 1 Tablet(s) PO daily TAKE ONE TABLET BY MOUTH DAILY 11/08/2016 11/20/2016 Inactive ceftriaxone 500 mg solution for injection RxNorm: 9683612 Inj 11/07/2016 11/07/2016 Inactive Kenalog 40 mg/mL suspension for injection RxNorm: 5148788 Milliliter(s) Inj 11/07/2016 11/07/2016 Inactive Xanax 0.25 mg tablet RxNorm: 732620 1 Tablet(s) PO daily as needed 10/31/2016 12/29/2016 Inactive alprazolam 0.25 mg tablet RxNorm: 382576 1 Tablet(s) PO daily as needed 10/21/2016 12/18/2016 Inactive (Response to an electronic controlled substance refill request - RxReferenceNumber: [id number]) hydrochlorothiazide 25 mg tablet RxNorm: 230093 TAKE ONE TABLET BY MOUTH DAILY 10/11/2016 04/08/2017 Active Xanax 0.25 mg tablet RxNorm: 261732 1 Tablet(s) PO daily as needed 08/23/2016 10/19/2016 Inactive Flonase Allergy Relief 50 mcg/actuation nasal spray,suspension RxNorm: 1692600 1 [place] NASAL daily 08/15/2016 No Stop Date Active amoxicillin 500 mg capsule RxNorm: 080535 1 Capsule(s) PO TID 08/15/2016 08/24/2016 Inactive Bystolic 10 mg tablet RxNorm: 885555 TAKE ONE TABLET BY MOUTH DAILY 08/01/2016 12/28/2016 Inactive trazodone 50 mg tablet RxNorm: 813764 TAKE 1 AND 1/2 TABLETS EVERY NIGHT AT BEDTIME , MAY INCREASE TO 2 TABLETS AT BEDTIME NEEDED 07/25/2016 11/11/2016 Inactive alprazolam 0.25 mg tablet RxNorm: 003350 1 Tablet(s) PO daily as needed 07/25/2016 08/22/2016 Inactive (Response to an electronic controlled substance refill request - RxReferenceNumber: [id number]) Imitrex 50 mg tablet RxNorm: 642474 1 Tablet(s) PO Q8 as needed may repeat x1 dose in 1 hour of inital dose. 07/13/2016 No Stop Date Active Lexapro 20 mg tablet RxNorm: 761513 TAKE 1/2 TABLET BY MOUTH DAILY FOR 10 DAYS, THEN TAKE ONE TABLET BY MOUTH DAILY 06/27/2016 11/23/2016 Inactive Synthroid 100 mcg tablet RxNorm: 552692 TAKE ONE TABLET BY MOUTH DAILY 06/20/2016 11/07/2016 Inactive Augmentin 500 mg-125 mg tablet RxNorm: 583657 1 Tablet(s) PO TID 06/07/2016 06/13/2016 Inactive hydrocodone 10 mg-acetaminophen 325 mg tablet RxNorm: 794128 Tablet(s) PO TAKE ONE TO TWO TABLETS BY MOUTH EVERY 6 HOURS NEEDED FOR PAIN 06/07/2016 11/27/2016 Inactive (Appended: Controlled substance eRx refill - RxReferenceNumber: [id number]) hydrochlorothiazide 25 mg tablet RxNorm: 760088 TAKE ONE TABLET BY MOUTH DAILY 03/14/2016 09/09/2016 Inactive Edarbi 40 mg tablet RxNorm: 2974802 1 Tablet(s) PO daily 03/14/2016 06/06/2016 Inactive trazodone 50 mg tablet RxNorm: 698194 Tablet(s) TAKE 1 AND 1/2 TABLET AT BEDTIME. MAY INCREASE TO 2 TABLETS IF NECESSARY 02/25/2016 07/05/2016 Inactive Imitrex 50 mg tablet RxNorm: 549796 1 Tablet(s) PO Q8 as needed may repeat x1 dose in 1 hour of inital dose. 02/25/2016 07/12/2016 Inactive dc fioricet Xanax 0.25 mg tablet RxNorm: 407920 1 Tablet(s) PO daily as needed 02/24/2016 07/21/2016 Inactive mupirocin 2 % topical ointment RxNorm: 096827 1 TOP BID 02/22/2016 No Stop Date Active Bactrim DS 800 mg-160 mg tablet RxNorm: 844369 1 Tablet(s) PO BID 02/22/2016 03/02/2016 Inactive Fioricet 50 mg-325 mg-40 mg tablet RxNorm: 283269 Tablet(s) TAKE ONE TABLET BY MOUTH EVERY 4 HOURS NEEDED FOR headache 02/12/2016 02/24/2016 Inactive (Response to an electronic controlled substance refill request - RxReferenceNumber: [id number]) Fioricet 50 mg-325 mg-40 mg tablet RxNorm: 230639 Tablet(s) TAKE ONE TABLET BY MOUTH EVERY 4 HOURS NEEDED FOR headache 02/12/2016 02/11/2016 Inactive (Response to an electronic controlled substance refill request - RxReferenceNumber: [id number]) Nexium 40 mg capsule,delayed release RxNorm: 063581 TAKE ONE CAPSULE BY MOUTH EVERY DAY 02/01/2016 10/27/2016 Inactive Bystolic 10 mg tablet RxNorm: 509019 Tablet(s) TAKE ONE TABLET BY MOUTH DAILY 01/06/2016 07/03/2016 Inactive Xanax 0.25 mg tablet RxNorm: 936183 1 Tablet(s) PO daily as needed 12/28/2015 02/23/2016 Inactive Levaquin 500 mg tablet RxNorm: 662069 1 Tablet(s) PO daily take a probiotic daily 12/14/2015 02/11/2016 Inactive Levaquin 500 mg tablet RxNorm: 134627 1 Tablet(s) PO daily take a probiotic daily 12/14/2015 12/13/2015 Inactive Phenergan with Codeine Syrup RxNorm: 5-10 Milliliter(s) PO Q6 PRN 12/07/2015 No Stop Date Active prednisone 20 mg tablet RxNorm: 640715 1 Tablet(s) PO BID 12/07/2015 12/13/2015 Inactive Augmentin 875 mg-125 mg tablet RxNorm: 708861 1 Tablet(s) PO BID 12/07/2015 12/13/2015 Inactive ceftriaxone 500 mg solution for injection RxNorm: 5357520 Inj 12/07/2015 12/07/2015 Inactive alprazolam 0.25 mg tablet RxNorm: 827446 1 Tablet(s) PO daily as needed 11/27/2015 12/25/2015 Inactive (Response to an electronic controlled substance refill request - RxReferenceNumber: [id number]) trazodone 50 mg tablet RxNorm: 740854 TAKE 1 AND 1/2 TABLET AT BEDTIME FOR 2 WEEKS, MAY INCREASE TO 2 TABLETS IF NECESSARY AFTER THAT 11/26/2015 02/24/2016 Inactive ceftriaxone 500 mg solution for injection RxNorm: 3437433 Milliliter(s) Inj 11/24/2015 11/24/2015 Inactive prednisone 10 mg tablet RxNorm: 462872 3 Tablet(s) PO daily 11/24/2015 11/28/2015 Inactive cefdinir 300 mg capsule RxNorm: 327921 1 Capsule(s) PO BID 11/24/2015 11/30/2015 Inactive Kenalog 40 mg/mL suspension for injection RxNorm: 8240188 1 Milliliter(s) Inj 11/24/2015 11/24/2015 Inactive Lexapro 20 mg tablet RxNorm: 566882 TAKE 1/2 TABLET BY MOUTH DAILY FOR 10 DAYS, THEN TAKE ONE TABLET BY MOUTH DAILY 11/23/2015 05/20/2016 Inactive Norvasc 10 mg tablet RxNorm: 102419 Tablet(s) PO TAKE ONE TABLET BY MOUTH EVERY DAY 10/26/2015 02/22/2016 Inactive Lipitor 10 mg tablet RxNorm: 662298 Tablet(s) TAKE ONE TABLET BY MOUTH EVERY DAY 10/26/2015 11/06/2016 Inactive hydrochlorothiazide 25 mg tablet RxNorm: 720927 TAKE ONE TABLET BY MOUTH DAILY 10/20/2015 01/17/2016 Inactive alprazolam 0.25 mg tablet RxNorm: 408865 1 Tablet(s) PO daily as needed 08/27/2015 11/22/2015 Inactive (Response to an electronic controlled substance refill request - RxReferenceNumber: [id number]) promethazine 25 mg/mL injection solution RxNorm: 857393 Milliliter(s) Inj 08/27/2015 08/27/2015 Inactive ketorolac 60 mg/2 mL intramuscular solution RxNorm: 866622 Milliliter(s) IM 08/27/2015 08/27/2015 Inactive Lexapro 20 mg tablet RxNorm: 820017 TAKE 1/2 TABLET BY MOUTH DAILY FOR 10 DAYS, THEN TAKE ONE TABLET BY MOUTH DAILY 08/13/2015 11/10/2015 Inactive Flonase 50 mcg/actuation nasal spray,suspension RxNorm: 243987 PLACE 1 SPRAY IN EACH NOSTRIL DAILY 08/13/2015 02/08/2016 Inactive Augmentin 500 mg-125 mg tablet RxNorm: 107547 1 Tablet(s) PO TID 08/10/2015 08/16/2015 Inactive Kenalog 40 mg/mL suspension for injection RxNorm: 1738544 Milliliter(s) Inj 08/10/2015 08/10/2015 Inactive ceftriaxone 500 mg solution for injection RxNorm: 4592757 Inj 08/10/2015 08/10/2015 Inactive nystatin 100,000 unit/mL oral suspension RxNorm: 774038 4 Milliliter(s) PO QID 08/10/2015 08/16/2015 Inactive trazodone 50 mg tablet RxNorm: 605286 TAKE 1 AND 1/2 TABLET AT BEDTIME FOR 2 WEEKS, MAY INCREASE TO 2 TABLETS IF NECESSARY AFTER THAT 07/31/2015 11/25/2015 Inactive ceftriaxone 500 mg solution for injection RxNorm: 5102640 1 Milliliter(s) Inj 07/28/2015 07/28/2015 Inactive Bactrim DS 800 mg-160 mg tablet RxNorm: 413460 1 Tablet(s) PO BID 07/28/2015 08/06/2015 Inactive Bactroban 2 % topical ointment RxNorm: 849563 1 Application TOP BID 07/28/2015 08/06/2015 Inactive Diflucan 150 mg tablet RxNorm: 400387 1 Tablet(s) PO daily 06/11/2015 06/17/2015 Inactive clotrimazole 1 % topical cream RxNorm: 951117 1 Application TOP BID 06/11/2015 07/10/2015 Inactive Bystolic 10 mg tablet RxNorm: 251883 TAKE ONE TABLET BY MOUTH DAILY 06/08/2015 12/04/2015 Inactive alprazolam 0.25 mg tablet RxNorm: 416904 1 Tablet(s) PO daily as needed 06/01/2015 08/25/2015 Inactive (Response to an electronic controlled substance refill request - RxReferenceNumber: [id number]) Fioricet 50 mg-325 mg-40 mg tablet RxNorm: 454376 Tablet(s) TAKE ONE TABLET BY MOUTH EVERY 4 HOURS NEEDED FOR headache 05/28/2015 06/08/2015 Inactive (Response to an electronic controlled substance refill request - RxReferenceNumber: [id number]) trazodone 50 mg tablet RxNorm: 623738 TAKE 1 AND 1/2 TABLET AT BEDTIME FOR 2 WEEKS, MAY INCREASE TO 2 TABLETS IF NECESSARY AFTER THAT 05/25/2015 08/22/2015 Inactive trazodone 50 mg tablet RxNorm: 531762 TAKE 1 AND 1/2 TABLET AT BEDTIME FOR 2 WEEKS, MAY INCREASE TO 2 TABLETS IF NECESSARY AFTER THAT 05/25/2015 05/24/2015 Inactive Synthroid 100 mcg tablet RxNorm: 066903 TAKE ONE TABLET BY MOUTH DAILY 04/23/2015 01/17/2016 Inactive Lipitor 10 mg tablet RxNorm: 690457 TAKE ONE TABLET BY MOUTH EVERY DAY 04/23/2015 10/25/2015 Inactive Kenalog 40 mg/mL suspension for injection RxNorm: 3400916 Milliliter(s) Inj 03/19/2015 03/19/2015 Inactive Lexapro 20 mg tablet RxNorm: 613118 1 Tablet(s) PO daily 03/19/2015 07/16/2015 Inactive 1/2 tab daily x 10 days then 1 tab daily hydrocodone 10 mg-acetaminophen 325 mg tablet RxNorm: 105147 Tablet(s) PO TAKE ONE TO TWO TABLETS BY MOUTH EVERY 6 HOURS NEEDED FOR PAIN 03/19/2015 06/06/2016 Inactive (Appended: Controlled substance eRx refill - RxReferenceNumber: [id number]) Carafate 1 gram tablet RxNorm: 892000 1 Tablet(s) PO AC & HS 03/19/2015 06/16/2015 Inactive dissolve in water and take as a slurry hydrochlorothiazide 25 mg tablet RxNorm: 314270 1 Tablet(s) PO daily 03/12/2015 09/07/2015 Inactive Nexium 40 mg capsule,delayed release RxNorm: 200727 TAKE ONE CAPSULE BY MOUTH EVERY DAY 02/26/2015 12/22/2015 Inactive Cymbalta 60 mg capsule,delayed release RxNorm: 710948 TAKE ONE CAPSULE BY MOUTH TWICE A DAY 02/23/2015 03/18/2015 Inactive alprazolam 0.25 mg tablet RxNorm: 938748 1 Tablet(s) PO daily as needed 02/11/2015 05/10/2015 Inactive (Response to an electronic controlled substance refill request - RxReferenceNumber: [id number]) trazodone 50 mg tablet RxNorm: 695776 TAKE 1 AND 1/2 TABLET AT BEDTIME FOR 2 WEEKS, MAY INCREASE TO 2 TABLETS IF NECESSARY AFTER THAT 01/27/2015 05/24/2015 Inactive Augmentin 500 mg-125 mg tablet RxNorm: 189961 1 Tablet(s) PO TID 01/07/2015 01/13/2015 Inactive gentamicin 0.3 % eye drops RxNorm: 486184 3 Drop(s) OPH QID 01/07/2015 01/13/2015 Inactive [AttnRPh: Saving apply/adjudicate RxGRP:[id number] RxBIN:[id number] RxPCN: ID#:[id number]] scopolamine 1.5 mg transdermal 72 hour patch RxNorm: 830914 1 Patch TD q72 hours 01/07/2015 11/23/2015 Inactive Synthroid 100 mcg tablet RxNorm: 567063 TAKE ONE TABLET BY MOUTH ONCE A DAY 01/06/2015 04/22/2015 Inactive nystatin 100,000 unit/gram topical powder RxNorm: 983000 APPLY TOPICALLY TWO TIMES A DAY 12/18/2014 03/17/2015 Inactive alprazolam 0.25 mg tablet RxNorm: 830645 TAKE ONE TABLET BY MOUTH DAILY NEEDED 10/30/2014 11/28/2014 Inactive (Response to an electronic controlled substance refill request - RxReferenceNumber: [id number]) alprazolam 0.25 mg tablet RxNorm: 069973 Tablet(s) TAKE ONE TABLET BY MOUTH DAILY 10/30/2014 10/29/2014 Inactive (Response to an electronic controlled substance refill request - RxReferenceNumber: [id number]) Lipitor 10 mg tablet RxNorm: 858852 TAKE ONE TABLET BY MOUTH EVERY DAY 10/30/2014 02/26/2015 Inactive alprazolam 0.25 mg tablet RxNorm: 277956 TAKE ONE TABLET BY MOUTH DAILY 10/07/2014 10/29/2014 Inactive (Response to an electronic controlled substance refill request - RxReferenceNumber: [id number]) alprazolam 0.25 mg tablet RxNorm: 582765 TAKE ONE TABLET BY MOUTH DAILY 10/06/2014 10/07/2014 Inactive (Response to an electronic controlled substance refill request - RxReferenceNumber: [id number]) alprazolam 0.25 mg tablet RxNorm: 986211 Tablet(s) TAKE ONE TABLET BY MOUTH EVERY DAY NEEDED 09/30/2014 10/06/2014 Inactive (Response to an electronic controlled substance refill request - RxReferenceNumber: [id number]) Fioricet 50 mg-325 mg-40 mg tablet RxNorm: 823697 Tablet(s) TAKE ONE TABLET BY MOUTH EVERY 4 HOURS NEEDED FOR headache 09/29/2014 10/12/2014 Inactive (Response to an electronic controlled substance refill request - RxReferenceNumber: [id number]) Bystolic 10 mg tablet RxNorm: 945976 1 Tablet(s) PO daily TAKE ONE TABLET BY MOUTH EVERY DAY 09/29/2014 04/26/2015 Inactive Bystolic 5 mg tablet RxNorm: 474384 TAKE 1 AND 1/2 TABLETS ONCE DAILY 09/24/2014 09/23/2014 Inactive Bystolic 5 mg tablet RxNorm: 617565 Tablet(s) TAKE 1 AND 1/2 TABLETS ONCE DAILY 09/24/2014 09/18/2015 Inactive gentamicin 0.3 % eye drops RxNorm: 697539 3 Drop(s) OPH QID 09/23/2014 09/29/2014 Inactive trazodone 50 mg tablet RxNorm: 774468 TAKE 1 AND 1/2 TABLET AT BEDTIME FOR 2 WEEKS, MAY INCREASE TO 2 TABLETS IF NECESSARY AFTER THAT 09/22/2014 01/26/2015 Inactive Fioricet 50 mg-325 mg-40 mg tablet RxNorm: 174558 TAKE ONE TABLET BY MOUTH EVERY 4 HOURS NEEDED FOR PAIN 09/17/2014 09/28/2014 Inactive (Response to an electronic controlled substance refill request - RxReferenceNumber: [id number]) Duragesic 50 mcg/hr transdermal patch RxNorm: 033749 1 TD q72 hours 08/07/2014 01/06/2015 Inactive [SAVINGS FOR UNINSURED PATIENTS -- BIN:[id number], PCN: ASPROD1, Group: [id number], ID# [id number], Process claim through [employer]Imp[employer], for questions: . THIS IS NOT INSURANCE.] alprazolam 0.25 mg tablet RxNorm: 202791 TAKE ONE TABLET BY MOUTH EVERY DAY NEEDED 07/31/2014 08/29/2014 Inactive (Response to an electronic controlled substance refill request - RxReferenceNumber: [id number]) alprazolam 0.25 mg tablet RxNorm: 168692 1 Tablet(s) PO daily as needed TAKE ONE TABLET BY MOUTH EVERY DAY NEEDED 07/30/2014 08/01/2014 Inactive (Response to an electronic controlled substance refill request - RxReferenceNumber: [id number]) Diflucan 150 mg tablet RxNorm: 827094 1 Tablet(s) PO daily 06/25/2014 07/01/2014 Inactive [SAVINGS FOR UNINSURED PATIENTS -- BIN:116744, PCN: ASPROD1, Group: [id number], ID# [id number], Process claim through MedImp[employer], for questions: . THIS IS NOT INSURANCE.] Kenalog 40 mg/mL suspension for injection RxNorm: 6128017 Milliliter(s) Inj 06/23/2014 06/23/2014 Inactive [SAVINGS FOR UNINSURED PATIENTS -- BIN:952236, PCN: ASPROD1, Group: [id number], ID# [id number], Process claim through MedImp[employer], for questions: . THIS IS NOT INSURANCE.] ceftriaxone 500 mg solution for injection RxNorm: 272266 Inj 06/23/2014 06/23/2014 Inactive [SAVINGS FOR UNINSURED PATIENTS -- BIN:630567, PCN: ASPROD1, Group: [id number], ID# [id number], Process claim through MedImpact, for questions: . THIS IS NOT INSURANCE.] Levaquin 500 mg tablet RxNorm: 436560 1 Tablet(s) PO daily 06/23/2014 07/13/2014 Inactive [SAVINGS FOR UNINSURED PATIENTS -- BIN:472183, PCN: ASPROD1, Group: [id number], ID# [id number], Process claim through [employer], for questions: . THIS IS NOT INSURANCE.] Duragesic 50 mcg/hr transdermal patch RxNorm: 499381 1 TD q72 hours 06/05/2014 08/06/2014 Inactive [SAVINGS FOR UNINSURED PATIENTS -- BIN:889794, PCN: ASPROD1, Group: [id number], ID# [id number], Process claim through [employer], for questions: . THIS IS NOT INSURANCE.] alprazolam 0.25 mg tablet RxNorm: 225589 1 Tablet(s) PO daily as needed TAKE ONE TABLET BY MOUTH EVERY DAY NEEDED 06/02/2014 07/29/2014 Inactive (Response to an electronic controlled substance refill request - RxReferenceNumber: [id number]) nystatin 100,000 unit/gram topical powder RxNorm: 704916 APPLY TO AFFECTED AREA(S) TWO TIMES A DAY 05/01/2014 06/14/2014 Inactive hydrochlorothiazide 25 mg tablet RxNorm: 931802 TAKE ONE TABLET BY MOUTH EVERY DAY MUST CALL MD FOR APPOINTMENT 04/24/2014 10/20/2014 Inactive alprazolam 0.25 mg tablet RxNorm: 703544 Tablet(s) TAKE ONE TABLET BY MOUTH EVERY DAY NEEDED 04/16/2014 06/02/2014 Inactive (Response to an electronic controlled substance refill request - RxReferenceNumber: [id number]) alprazolam 0.25 mg tablet RxNorm: 823366 TAKE ONE TABLET BY MOUTH EVERY DAY NEEDED 04/16/2014 05/15/2014 Inactive (Response to an electronic controlled substance refill request - RxReferenceNumber: [id number]) alprazolam 0.25 mg tablet RxNorm: 968814 TAKE ONE TABLET BY MOUTH EVERY DAY NEEDED 04/16/2014 05/15/2014 Inactive (Response to an electronic controlled substance refill request - RxReferenceNumber: [id number]) alprazolam 0.25 mg tablet RxNorm: 670512 TAKE ONE TABLET BY MOUTH EVERY DAY NEEDED 04/14/2014 04/16/2014 Inactive (Response to an electronic controlled substance refill request - RxReferenceNumber: [id number]) Lipitor 10 mg tablet RxNorm: 392781 TAKE ONE TABLET BY MOUTH EVERY DAY 04/14/2014 09/10/2014 Inactive alprazolam 0.25 mg tablet RxNorm: 802905 TAKE ONE TABLET BY MOUTH EVERY DAY NEEDED 04/14/2014 04/14/2014 Inactive (Response to an electronic controlled substance refill request - RxReferenceNumber: [id number]) alprazolam 0.25 mg tablet RxNorm: 378291 TAKE ONE TABLET BY MOUTH EVERY DAY NEEDED 04/14/2014 04/15/2014 Inactive (Response to an electronic controlled substance refill request - RxReferenceNumber: [id number]) alprazolam 0.25 mg tablet RxNorm: 886634 TAKE ONE TABLET BY MOUTH EVERY DAY NEEDED 04/14/2014 04/14/2014 Inactive (Response to an electronic controlled substance refill request - RxReferenceNumber: [id number]) nystatin 100,000 unit/gram topical powder RxNorm: 380173 1 Application TOP BID 04/03/2014 07/01/2014 Inactive [SAVINGS FOR UNINSURED PATIENTS -- BIN:643069, PCN: ASPROD1, Group: [place], ID# [id number], Process claim through MedImpact, for questions: . THIS IS NOT INSURANCE.] Keflex 500 mg capsule RxNorm: 395517 1 Capsule(s) PO QID 04/03/2014 04/09/2014 Inactive [SAVINGS FOR UNINSURED PATIENTS -- BIN:118779, PCN: ASPROD1, Group: [id number], ID# [id number], Process claim through MedImpact, for questions: . THIS IS NOT INSURANCE.] Synthroid 100 mcg tablet RxNorm: 721706 1 Tablet(s) PO daily TAKE ONE TABLET BY MOUTH EVERY DAY 04/01/2014 01/05/2015 Inactive [SAVINGS FOR UNINSURED PATIENTS -- BIN:187641, PCN: ASPROD1, Group: [id number], ID# [id number], Process claim through MedImpact, for questions: . THIS IS NOT INSURANCE.] Duragesic 50 mcg/hr transdermal patch RxNorm: 977987 1 TD q72 hours 03/24/2014 06/04/2014 Inactive [SAVINGS FOR UNINSURED PATIENTS -- BIN:476307, PCN: ASPROD1, Group: [id number], ID# [id number], Process claim through MedImpact, for questions: . THIS IS NOT INSURANCE.] trazodone 50 mg tablet RxNorm: 785905 TAKE 1 AND 1/2 TABLET AT BEDTIME FOR 2 WEEKS, MAY INCREASE TO 2 TABLETS IF NECESSARY AFTER THAT 03/18/2014 09/13/2014 Inactive nystatin 100,000 unit/gram topical powder RxNorm: 475364 1 Application TOP BID 03/07/2014 03/16/2014 Inactive [SAVINGS FOR UNINSURED PATIENTS -- BIN:763220, PCN: ASPROD1, Group: [id number], ID# [id number], Process claim through MedImpact, for questions: . THIS IS NOT INSURANCE.] permethrin 5 % topical cream RxNorm: 682841 1 Application TOP daily 03/07/2014 11/23/2015 Inactive apply head to toe-leave on overnight and wash off in the a.m. May repeat x 1 if needed Diflucan 150 mg tablet RxNorm: 150707 1 Tablet(s) PO daily 03/07/2014 03/09/2014 Inactive [SAVINGS FOR UNINSURED PATIENTS -- BIN:760319, PCN: ASPROD1, Group: [id number], ID# [id number], Process claim through MedImpact, for questions: . THIS IS NOT INSURANCE.] hydrochlorothiazide 25 mg tablet RxNorm: 765314 TAKE ONE TABLET BY MOUTH EVERY DAY MUST CALL FOR APPOINTMENT 03/06/2014 04/23/2014 Inactive Zithromax Z-Sergio 250 mg tablet RxNorm: 097489 Tablet(s) PO as directed 03/04/2014 11/23/2015 Inactive [SAVINGS FOR UNINSURED PATIENTS -- BIN:467868, PCN: ASPROD1, Group: [id number], ID# [id number], Process claim through [employer], for questions: . THIS IS NOT INSURANCE.] Flonase 50 mcg/actuation nasal spray,suspension RxNorm: 599813 1 [place] NASAL daily 03/04/2014 07/01/2014 Inactive [SAVINGS FOR UNINSURED PATIENTS -- BIN:633975, PCN: ASPROD1, Group: [id number], ID# [id number], Process claim through MeUnd[employer], for questions: . THIS IS NOT INSURANCE.] alprazolam 0.25 mg tablet RxNorm: 679234 1 Tablet(s) PO PRN TAKE ONE TABLET BY MOUTH EVERY DAY NEEDED 02/25/2014 04/14/2014 Inactive (Appended: Controlled substance eRx refill - RxReferenceNumber: [id number]) alprazolam 0.25 mg tablet RxNorm: 034417 TAKE ONE TABLET BY MOUTH EVERY DAY NEEDED 02/21/2014 03/22/2014 Inactive (Response to an electronic controlled substance refill request - RxReferenceNumber: [id number]) alprazolam 0.25 mg tablet RxNorm: 766602 TAKE ONE TABLET BY MOUTH EVERY DAY NEEDED 02/21/2014 03/22/2014 Inactive (Response to an electronic controlled substance refill request - RxReferenceNumber: [id number]) alprazolam 0.25 mg tablet RxNorm: 501267 TAKE ONE TABLET BY MOUTH EVERY DAY NEEDED 02/18/2014 03/19/2014 Inactive (Response to an electronic controlled substance refill request - RxReferenceNumber: [id number]) Cymbalta 60 mg capsule,delayed release RxNorm: 159574 TAKE ONE CAPSULE BY MOUTH TWICE A DAY 02/18/2014 01/13/2015 Inactive Nexium 40 mg capsule,delayed release RxNorm: 071689 TAKE ONE CAPSULE BY MOUTH EVERY DAY 02/18/2014 01/13/2015 Inactive Bactrim DS 800 mg-160 mg tablet RxNorm: 163098 1 Tablet(s) PO BID 02/13/2014 02/19/2014 Inactive probiotic while one antibiotic Bactrim DS 800 mg-160 mg tablet RxNorm: 298412 1 Tablet(s) PO BID 02/13/2014 02/12/2014 Inactive hydrocodone 10 mg-acetaminophen 325 mg tablet RxNorm: 172170 Tablet(s) PO TAKE ONE TO TWO TABLETS BY MOUTH EVERY 6 HOURS NEEDED FOR PAIN 02/06/2014 03/18/2015 Inactive (Appended: Controlled substance eRx refill - RxReferenceNumber: [id number]) Abilify 2 mg tablet RxNorm: 112874 Tablet(s) PO TAKE ONE TABLET BY MOUTH EVERY NIGHT AT BEDTIME 02/03/2014 03/19/2015 Inactive Duragesic 50 mcg/hr transdermal patch RxNorm: 139830 1 TD q72 hours 01/14/2014 03/23/2014 Inactive alprazolam 0.25 mg tablet RxNorm: 228586 1 Tablet(s) PO QDAY PRN 01/14/2014 02/12/2014 Inactive alprazolam 0.25 mg tablet RxNorm: 226456 Tablet(s) PO TAKE ONE TABLET BY MOUTH EVERY DAY NEEDED 01/14/2014 02/24/2014 Inactive (Appended: Controlled substance eRx refill - RxReferenceNumber: [id number]) Lipitor 10 mg tablet RxNorm: 306428 Tablet(s) PO TAKE ONE TABLET BY MOUTH EVERY DAY 01/14/2014 04/13/2014 Inactive Synthroid 100 mcg tablet RxNorm: 517129 Tablet(s) PO TAKE ONE TABLET BY MOUTH EVERY DAY 2013 03/31/2014 Inactive Fioricet 50 mg-325 mg-40 mg tablet RxNorm: 346050 Tablet(s) PO TAKE ONE TABLET BY MOUTH EVERY 4 HOURS NEEDED FOR PAIN 11/27/2013 09/17/2014 Inactive Fioricet 50 mg-325 mg-40 mg tablet RxNorm: 400514 Tablet(s) PO TAKE ONE TABLET BY MOUTH EVERY 4 HOURS NEEDED FOR PAIN 11/25/2013 11/26/2013 Inactive Zithromax Z-Sergio 250 mg tablet RxNorm: 015314 Tablet(s) PO as directed 11/11/2013 01/13/2014 Inactive Bystolic 10 mg tablet RxNorm: 536526 Tablet(s) PO TAKE ONE TABLET BY MOUTH EVERY DAY 10/21/2013 09/28/2014 Inactive Abilify 2 mg tablet RxNorm: 610924 1 Tablet(s) PO QHS 09/25/2013 01/22/2014 Inactive Synthroid 100 mcg tablet RxNorm: 964143 Tablet(s) PO TAKE ONE TABLET BY MOUTH EVERY DAY 09/24/2013 12/25/2013 Inactive Abilify 2 mg tablet RxNorm: 421741 1 Tablet(s) PO QHS 09/24/2013 09/24/2013 Inactive Rocephin 500 mg solution for injection RxNorm: 042055 1ml Milliliter(s) Inj 09/24/2013 09/24/2013 Inactive Rocephin 500 mg solution for injection RxNorm: 839076 1 Milliliter(s) Inj 09/19/2013 09/19/2013 Inactive Bystolic 5 mg tablet RxNorm: 787485 1 1/2 Tablet(s) PO daily 09/17/2013 03/15/2014 Inactive 1 1/2 daily may have 90 day if cheaper Bystolic 5 mg tablet RxNorm: 497925 1 1/2 Tablet(s) PO daily 09/17/2013 09/16/2013 Inactive 1 1/2 daily Lipitor 10 mg tablet RxNorm: 610635 Tablet(s) PO TAKE ONE TABLET BY MOUTH EVERY DAY 09/12/2013 01/13/2014 Inactive hydrocodone 10 mg-acetaminophen 325 mg tablet RxNorm: 841956 Tablet(s) PO TAKE ONE TO TWO TABLETS BY MOUTH EVERY 6 HOURS NEEDED FOR PAIN 09/09/2013 No Stop Date Active (Appended: Controlled substance eRx refill - RxReferenceNumber: [id number]) hydrocodone 10 mg-acetaminophen 325 mg tablet RxNorm: 452304 1 Tablet(s) PO Q6 PRN 09/09/2013 02/06/2014 Inactive hydrocodone 10 mg-acetaminophen 325 mg tablet RxNorm: 869721 Tablet(s) PO TAKE ONE TO TWO TABLETS BY MOUTH EVERY 6 HOURS NEEDED FOR PAIN 09/06/2013 No Stop Date Active (Appended: Controlled substance eRx refill - RxReferenceNumber: [id number]) Norvasc 10 mg tablet RxNorm: 505922 Tablet(s) PO TAKE ONE TABLET BY MOUTH EVERY DAY 09/05/2013 10/25/2015 Inactive trazodone 50 mg tablet RxNorm: 613255 1 1/2 Tablet(s) PO QHS 09/03/2013 03/17/2014 Inactive 75q hs x 2 week may increase to 100mg if nec after that nystatin 100,000 unit/mL oral suspension RxNorm: 351638 6 Milliliter(s) PO QID 08/06/2013 08/15/2013 Inactive Flonase 50 mcg/actuation nasal spray,suspension RxNorm: 543085 2 [place] NASAL daily 08/06/2013 03/03/2014 Inactive nystatin 100,000 unit/mL oral suspension RxNorm: 262643 6 Unit(s) PO QID 08/05/2013 08/05/2013 Inactive Phenergan with Codeine Syrup RxNorm: 5 Milliliter(s) PO Q4 PRN 08/05/2013 12/02/2013 Inactive 8 ounces alprazolam 0.25 mg tablet RxNorm: 976230 1 Tablet(s) PO QDAY PRN 07/29/2013 01/14/2014 Inactive Diflucan 150 mg tablet RxNorm: 458334 1 Tablet(s) PO daily 07/24/2013 07/26/2013 Inactive hydrochlorothiazide 25 mg tablet RxNorm: 014968 Tablet(s) PO TAKE ONE TABLET BY MOUTH EVERY DAY MUST CALL MD FOR APPOINTMENT 07/19/2013 03/05/2014 Inactive Phenergan with Codeine Syrup RxNorm: 10 Milliliter(s) PO Q4 PRN 07/10/2013 08/04/2013 Inactive 8 ounces Rocephin 500 mg solution for injection RxNorm: 531640 1 Inj 07/10/2013 07/10/2013 Inactive cefdinir 300 mg capsule RxNorm: 805758 1 Capsule(s) PO BID 07/10/2013 07/16/2013 Inactive prednisone 10 mg tablet RxNorm: 430174 3 Tablet(s) PO daily 07/10/2013 07/14/2013 Inactive Carafate 100 mg/mL oral suspension RxNorm: 900438 10 Milliliter(s) PO Q6 PRN pt to take carafate 10mL every 6 hours as needed. 07/10/2013 08/05/2014 Inactive Kenalog 40 mg/mL suspension for injection RxNorm: 2978883 1 Milliliter(s) Inj 07/10/2013 07/10/2013 Inactive trazodone 50 mg tablet RxNorm: 304314 1 Tablet(s) PO QHS 07/10/2013 09/02/2013 Inactive sulfamethoxazole 800 mg-trimethoprim 160 mg tablet RxNorm: 883982 1 Tablet(s) PO BID 06/03/2013 06/12/2013 Inactive Synthroid 125 mcg tablet RxNorm: 663090 1 Tablet(s) PO daily 05/07/2013 09/23/2013 Inactive Bystolic 10 mg tablet RxNorm: 418078 1.5 Tablet(s) PO daily 05/07/2013 09/03/2013 Inactive Voltaren 1 % Topical Gel RxNorm: 190315 4 Gram(s) TOP QID apply 4 grams to knees, 2 grams to hands and ankles four times daily. 05/07/2013 09/03/2013 Inactive hydrocodone 10 mg-acetaminophen 325 mg tablet RxNorm: 846017 1 Tablet(s) PO Q6 PRN 04/23/2013 09/09/2013 Inactive Norvasc 10 mg tablet RxNorm: 199351 Tablet(s) PO TAKE ONE TABLET BY MOUTH EVERY DAY 04/23/2013 09/04/2013 Inactive alprazolam 0.25 mg tablet RxNorm: 663622 1 Tablet(s) PO QDAY PRN 03/25/2013 07/22/2013 Inactive Bystolic 10 mg tablet RxNorm: 074821 1 Tablet(s) PO daily TAKE ONE TABLET BY MOUTH EVERY DAY 03/25/2013 05/06/2013 Inactive zolpidem 10 mg tablet RxNorm: 740352 1 Tablet(s) PO HS PRN 03/25/2013 07/09/2013 Inactive gentamicin 0.3 % Eye Drops RxNorm: 336151 3 Drop(s) OPH QID three gtts to each eye QID x 7 days 03/11/2013 03/10/2013 Inactive gentamicin 0.3 % eye drops RxNorm: 297955 3 Drop(s) OPH QID three gtts to each eye QID x 7 days 03/11/2013 03/17/2013 Inactive Nexium 40 mg capsule,delayed release RxNorm: 978228 Capsule(s) PO TAKE ONE CAPSULE BY MOUTH EVERY DAY 02/15/2013 02/17/2014 Inactive Cymbalta 60 mg capsule,delayed release RxNorm: 430716 Capsule(s) PO TAKE ONE CAPSULE BY MOUTH TWICE A DAY 02/15/2013 02/17/2014 Inactive hydrocodone 10 mg-acetaminophen 325 mg tablet RxNorm: 6896959 1 Tablet(s) PO Q6 PRN 01/22/2013 04/22/2013 Inactive Lipitor 10 mg tablet RxNorm: 493568 Tablet(s) PO TAKE ONE TABLET BY MOUTH EVERY DAY 01/07/2013 09/11/2013 Inactive Cymbalta 60 mg capsule,delayed release RxNorm: 105423 Capsule(s) PO TAKE ONE CAPSULE BY MOUTH TWICE A DAY 01/02/2013 02/14/2013 Inactive Synthroid 100 mcg tablet RxNorm: 472139 1 Tablet(s) PO 12/03/2012 05/06/2013 Inactive Enablex 7.5 mg tablet,extended release RxNorm: 265236 1 Tablet(s) PO daily 11/28/2012 11/27/2012 Inactive Enablex 7.5 mg tablet,extended release RxNorm: 571867 1 Tablet(s) PO daily 11/28/2012 11/28/2012 Inactive scopolamine 1.5 mg 72 hr Transderm Patch RxNorm: 396008 1 Milligram(s) TD q72 hours 11/26/2012 05/06/2013 Inactive hydrochlorothiazide 25 mg tablet RxNorm: 993374 Tablet(s) PO TAKE ONE TABLET BY MOUTH EVERY DAY MUST CALL FOR APPOINTMENT 11/24/2012 07/18/2013 Inactive Cymbalta 60 mg capsule,delayed release RxNorm: 864440 Capsule(s) PO TAKE ONE CAPSULE BY MOUTH TWICE A DAY 10/26/2012 01/01/2013 Inactive Bystolic 10 mg tablet RxNorm: 568444 Tablet(s) PO TAKE ONE TABLET BY MOUTH EVERY DAY 10/12/2012 03/25/2013 Inactive zolpidem 10 mg tablet RxNorm: 346508 1 Tablet(s) PO HS PRN 10/02/2012 01/29/2013 Inactive alprazolam 0.25 mg tablet RxNorm: 151826 1 Tablet(s) PO QDAY PRN 10/02/2012 01/29/2013 Inactive Kenalog 40 mg/mL Susp for Injection RxNorm: 5208489 1 Milliliter(s) Inj 09/24/2012 09/24/2012 Inactive Diflucan 150 mg tablet RxNorm: 349939 1 Tablet(s) PO daily 09/24/2012 09/30/2012 Inactive acyclovir 400 mg tablet RxNorm: 373680 1 Tablet(s) PO QID 09/24/2012 10/08/2012 Inactive Cipro 500 mg tablet RxNorm: 980648 1 Tablet(s) PO BID 09/24/2012 09/30/2012 Inactive Tamiflu 75 mg capsule RxNorm: 062383 1 Capsule(s) PO BID 09/17/2012 09/16/2012 Inactive Tamiflu 75 mg capsule RxNorm: 628768 1 Capsule(s) PO BID 09/17/2012 09/16/2012 Inactive Tamiflu 75 mg capsule RxNorm: 137418 1 Capsule(s) PO BID please disregard order for #14 09/17/2012 09/21/2012 Inactive fluconazole 150 mg tablet RxNorm: 427623 1 Tablet(s) PO daily 09/10/2012 09/13/2012 Inactive ketoconazole 2 % Topical Cream RxNorm: 760480 Application TOP BID apply to affected area BID until gone 08/31/2012 No Stop Date Active Norvasc 10 mg tablet RxNorm: 309447 Tablet(s) PO TAKE ONE TABLET BY MOUTH EVERY DAY 08/29/2012 04/22/2013 Inactive Cipro 500 mg tablet RxNorm: 724332 1 Tablet(s) PO BID 08/17/2012 08/26/2012 Inactive Flagyl 500 mg tablet RxNorm: 152139 1 Tablet(s) PO TID 08/17/2012 08/23/2012 Inactive Cipro 500 mg tablet RxNorm: 690833 1 Tablet(s) PO BID 08/17/2012 08/16/2012 Inactive zolpidem 10 mg tablet RxNorm: 734245 1 Tablet(s) PO HS PRN 08/17/2012 09/15/2012 Inactive Flagyl 500 mg tablet RxNorm: 251835 1 Tablet(s) PO TID 08/17/2012 08/16/2012 Inactive alprazolam 0.25 mg tablet RxNorm: 695510 1 Tablet(s) PO QDAY PRN 08/17/2012 09/15/2012 Inactive [place] Allergy 180 mg tablet RxNorm: 994598 1 Tablet(s) PO daily 08/08/2012 02/03/2013 Inactive hydrochlorothiazide 25 mg tablet RxNorm: 913161 1/2 Tablet(s) PO daily 08/08/2012 11/05/2012 Inactive needs appt Carafate 1 gram tablet RxNorm: 214334 1 Tablet(s) PO QID mix with 10 cc water and dissolve into slurry 08/08/2012 08/21/2012 Inactive hydrocodone 10 mg-acetaminophen 325 mg tablet RxNorm: 6789163 1 Tablet(s) PO Q6 PRN 08/08/2012 01/21/2013 Inactive Synthroid 100 mcg tablet RxNorm: 961497 1 Tablet(s) PO 08/08/2012 12/02/2012 Inactive Cymbalta 60 mg capsule,delayed release RxNorm: 857969 Capsule(s) PO 07/23/2012 10/25/2012 Inactive TAKE ONE CAPSULE BY MOUTH TWICE A DAY Nexium 40 mg capsule,delayed release RxNorm: 064485 Capsule(s) PO 06/20/2012 02/14/2013 Inactive TAKE ONE CAPSULE BY MOUTH EVERY DAY Lipitor 10 mg tablet RxNorm: 354858 Tablet(s) PO 06/20/2012 01/06/2013 Inactive TAKE ONE TABLET BY MOUTH EVERY DAY hydrochlorothiazide 25 mg tablet RxNorm: 996715 1 Tablet(s) PO daily 06/19/2012 08/07/2012 Inactive needs appt alprazolam 0.25 mg tablet RxNorm: 027350 1 Tablet(s) PO QDAY PRN 06/05/2012 07/04/2012 Inactive zolpidem 10 mg tablet RxNorm: 612751 1 Tablet(s) PO HS PRN 06/05/2012 07/04/2012 Inactive zolpidem 10 mg tablet RxNorm: 350429 1 Tablet(s) PO HS PRN 04/16/2012 05/15/2012 Inactive alprazolam 0.25 mg tablet RxNorm: 148173 1 Tablet(s) PO QDAY PRN 04/16/2012 05/15/2012 Inactive Cymbalta 60 mg capsule,delayed release RxNorm: 556659 1 Capsule(s) PO BID 03/22/2012 07/19/2012 Inactive Fioricet 50 mg-325 mg-40 mg tablet RxNorm: 779722 1 Tablet(s) PO Q4 PRN 03/22/2012 11/24/2013 Inactive Bystolic 10 mg tablet RxNorm: 490110 Tablet(s) PO 03/22/2012 10/11/2012 Inactive TAKE ONE TABLET BY MOUTH EVERY DAY potassium chloride ER 10 mEq Tab RxNorm: 437098 1 Tablet(s) PO daily 02/24/2012 03/01/2012 Inactive Lasix 20 mg Tab RxNorm: 832166 1 Tablet(s) PO daily 02/22/2012 02/21/2012 Inactive KCL 10 meq RxNorm: 1 PO daily 02/22/2012 02/21/2012 Inactive potassium chloride ER 10 mEq Tab RxNorm: 905024 1 Tablet(s) PO daily 02/22/2012 02/21/2012 Inactive Lasix 20 mg Tab RxNorm: 851355 1 Tablet(s) PO daily 02/22/2012 02/28/2012 Inactive KCL 10 meq RxNorm: 1 PO daily 02/22/2012 02/22/2012 Inactive potassium chloride ER 10 mEq Tab RxNorm: 790805 1 Tablet(s) PO daily 02/22/2012 02/23/2012 Inactive Rocephin 500 mg Solution for Injection RxNorm: 558367 Inj 02/15/2012 02/15/2012 Inactive Nexium 40 mg capsule,delayed release RxNorm: 671794 1 Capsule(s) PO daily 02/15/2012 No Stop Date Active Bystolic 10 mg Tab RxNorm: 822036 1 Tablet(s) PO daily 02/15/2012 08/12/2012 Inactive alprazolam 0.25 mg tablet RxNorm: 759945 1 Tablet(s) PO QDAY PRN 01/31/2012 02/29/2012 Inactive zolpidem 10 mg tablet RxNorm: 147874 1 Tablet(s) PO HS PRN 01/31/2012 02/29/2012 Inactive alprazolam 0.25 mg Tab RxNorm: 927804 1 Tablet(s) PO QDAY PRN 12/16/2011 01/14/2012 Inactive zolpidem 10 mg Tab RxNorm: 849770 1 Tablet(s) PO HS PRN 12/16/2011 01/14/2012 Inactive Norvasc 10 mg tablet RxNorm: 451638 1 Tablet(s) PO daily 12/02/2011 02/21/2012 Inactive Lipitor 10 mg tablet RxNorm: 851738 1 Tablet(s) PO daily 11/16/2011 05/13/2012 Inactive zolpidem 10 mg Tab RxNorm: 041958 1 Tablet(s) PO HS PRN 10/26/2011 12/15/2011 Inactive alprazolam 0.25 mg Tab RxNorm: 931077 1 Tablet(s) PO QDAY PRN 10/26/2011 12/15/2011 Inactive hydrochlorothiazide 25 mg tablet RxNorm: 458357 1 Tablet(s) PO daily 09/05/2011 03/02/2012 Inactive Synthroid 75 mcg tablet RxNorm: 108725 1 Tablet(s) PO daily 08/01/2011 02/26/2012 Inactive Abilify 2 mg Tab RxNorm: 298098 1 Tablet(s) PO QHS 08/01/2011 09/10/2012 Inactive dicyclomine 10 mg Cap RxNorm: 366890 1 Capsule(s) PO TID 08/01/2011 10/29/2011 Inactive alprazolam 0.25 mg Tab RxNorm: 221281 1 Tablet(s) PO QDAY PRN 07/26/2011 10/25/2011 Inactive Fioricet 50 mg-325 mg-40 mg tablet RxNorm: 464542 1 Tablet(s) PO Q4 PRN 07/14/2011 03/21/2012 Inactive Rocephin 500 mg Solution for Injection RxNorm: 507732 1 Milliliter(s) Inj 07/14/2011 08/01/2011 Inactive Nexium 40 mg Capsule, delayed release RxNorm: 113653 1 Capsule(s) PO daily 05/23/2011 10/06/2011 Inactive Bystolic 10 mg tablet RxNorm: 045618 1 Tablet(s) PO daily 05/23/2011 11/18/2011 Inactive Bystolic 10 mg Tab RxNorm: 152906 1 Tablet(s) PO daily 05/23/2011 05/22/2011 Inactive alprazolam 0.25 mg Tab RxNorm: 186097 1 Tablet(s) PO QDAY PRN 05/23/2011 07/25/2011 Inactive Influenza Virus Vaccine 0.5 mL RxNorm: IM 05/23/2011 05/23/2011 Inactive zolpidem 10 mg Tab RxNorm: 854372 1 Tablet(s) PO HS PRN 05/23/2011 10/25/2011 Inactive Rocephin 500 mg Solution for Injection RxNorm: 571488 1 Milliliter(s) Inj 05/03/2011 07/14/2011 Inactive Kenalog 40 mg/mL Susp for Injection RxNorm: 8620055 1 Milliliter(s) Inj 05/03/2011 07/14/2011 Inactive Bactrim DS 800 mg-160 mg Tab RxNorm: 861104 1 Tablet(s) PO BID 05/03/2011 08/01/2011 Inactive Flonase 50 mcg/actuation nasal spray,suspension RxNorm: 8883048 1 [place] NASAL daily No Start Date Active 1 spray to each nostril daily aspirin 81 mg tablet RxNorm: 589123 1 Tablet(s) PO daily No Start Date Active baclofen 10 mg tablet RxNorm: 411121 1 Tablet(s) PO TID as needed muscle spasms No Start Date Active Fish Oil 1,000 mg Cap RxNorm: 1 Capsule(s) PO TID No Start Date Active Flonase 50 mcg/actuation nasal spray,suspension RxNorm: 0260387 2 [place] NASAL daily No Start Date 08/05/2013 Inactive Duragesic 50 mcg/hr transdermal patch RxNorm: 412595 1 TD q72 hours No Start Date 01/13/2014 Inactive Vesicare 5 mg tablet RxNorm: 391210 1 Tablet(s) PO daily No Start Date 01/06/2015 Inactive Celebrex 200 mg capsule RxNorm: 706871 1 Capsule(s) PO daily No Start Date 04/02/2014 Inactive zolpidem 10 mg Tab RxNorm: 493365 1 Tablet(s) PO HS PRN No Start Date 05/22/2011 Inactive Zyrtec 10 mg Tab RxNorm: 2357396 1 Tablet(s) PO daily No Start Date 08/08/2012 Inactive Nexium 40 mg Cap RxNorm: 107386 1 Capsule(s) PO daily No Start Date 05/22/2011 Inactive ketoconazole 2 % Topical Cream RxNorm: 960448 Application TOP BID apply to affected area BID until gone No Start Date 08/30/2012 Inactive Cymbalta 60 mg capsule,delayed release RxNorm: 122094 1 Capsule(s) PO BID No Start Date 03/21/2012 Inactive alprazolam 0.25 mg Tab RxNorm: 390385 1 Tablet(s) PO QDAY PRN No Start Date 05/22/2011 Inactive Toprol XL 100 mg 24 hr Tab RxNorm: 605314 1 Tablet(s) PO BID No Start Date 04/25/2011 Inactive Xanax 0.25 mg tablet RxNorm: 156433 1 Tablet(s) PO daily as needed No Start Date 12/27/2015 Inactive Bystolic 10 mg Tab RxNorm: 010015 1 Tablet(s) PO daily No Start Date 05/22/2011 Inactive Fioricet 50 mg-325 mg-40 mg Tab RxNorm: 538881 1 Tablet(s) PO Q4 PRN No Start Date 07/13/2011 Inactive albuterol sulfate HFA 90 mcg/Actuation Aerosol Inhaler RxNorm: 8902602 1 INH Q4 PRN No Start Date 01/06/2015 Inactive Imitrex 50 mg tablet RxNorm: 980052 1 Tablet(s) PO Q8 as needed may repeat x1 dose in 1 hour of inital dose. No Start Date 02/24/2016 Inactive dc fioricet Tessalon 200 mg Cap RxNorm: 778677 1 Capsule(s) PO Q4 PRN No Start Date 02/14/2012 Inactive Zithromax Z-Sergio 250 mg tablet RxNorm: 478197 Tablet(s) PO No Start Date 11/10/2013 Inactive hydrochlorothiazide 25 mg Tab RxNorm: 456288 1 Tablet(s) PO daily No Start Date 09/04/2011 Inactive Deplin 15 mg Tab RxNorm: 1 Tablet(s) PO daily No Start Date 08/01/2011 Inactive Brilinta 90 mg tablet RxNorm: 1608284 1 Tablet(s) PO BID No Start Date 11/23/2015 Inactive Synthroid 75 mcg Tab RxNorm: 322714 1 Tablet(s) PO daily No Start Date 07/31/2011 Inactive scopolamine 1.5 mg 72 hr Transderm Patch RxNorm: 172465 1 Milligram(s) TD q72 hours No Start Date 11/25/2012 Inactive hydrocodone-acetaminophen 10 mg-325 mg tablet RxNorm: 0305635 1 Tablet(s) PO Q6 PRN No Start Date 08/07/2012 Inactive Phenergan with Codeine Syrup RxNorm: 5-10 Milliliter(s) PO Q6 PRN No Start Date 02/14/2012 Inactive Norvasc 10 mg Tab RxNorm: 728110 1 Tablet(s) PO daily No Start Date 12/01/2011 Inactive Zithromax Z-Sergio 250 mg Tab RxNorm: 400785 Tablet(s) PO No Start Date 08/01/2011 Inactive Medication Administered Medication Codes Instructions Start Date Status ceftriaxone 500 mg solution for injection RxNorm: 6814082 1Milliliter 11/28/2016 No longer Active Kenalog 40 mg/mL suspension for injection RxNorm: 1981045 Milliliter 11/07/2016 No longer Active ceftriaxone 500 mg solution for injection RxNorm: 8977529 11/07/2016 No longer Active ceftriaxone 500 mg solution for injection RxNorm: 2298868 12/07/2015 No longer Active Kenalog 40 mg/mL suspension for injection RxNorm: 7774633 1Milliliter 11/24/2015 No longer Active ceftriaxone 500 mg solution for injection RxNorm: 0065529 Milliliter 11/24/2015 No longer Active promethazine 25 mg/mL injection solution RxNorm: 454479 Milliliter 08/27/2015 No longer Active ketorolac 60 mg/2 mL intramuscular solution RxNorm: 867863 Milliliter 08/27/2015 No longer Active Kenalog 40 mg/mL suspension for injection RxNorm: 0270877 Milliliter 08/10/2015 No longer Active ceftriaxone 500 mg solution for injection RxNorm: 6901323 08/10/2015 No longer Active ceftriaxone 500 mg solution for injection RxNorm: 2985914 1Milliliter 07/28/2015 No longer Active Kenalog 40 mg/mL suspension for injection RxNorm: 2542766 Milliliter 03/19/2015 No longer Active Kenalog 40 mg/mL suspension for injection RxNorm: 2754604 Milliliter 06/23/2014 No longer Active ceftriaxone 500 mg solution for injection RxNorm: 306480 06/23/2014 No longer Active Rocephin 500 mg solution for injection RxNorm: 020169 1mlMilliliter 09/24/2013 No longer Active Rocephin 500 mg solution for injection RxNorm: 683983 1Milliliter 09/19/2013 No longer Active Rocephin 500 mg solution for injection RxNorm: 669246 1 07/10/2013 No longer Active Kenalog 40 mg/mL suspension for injection RxNorm: 7514707 1Milliliter 07/10/2013 No longer Active Kenalog 40 mg/mL Susp for Injection RxNorm: 7670051 1Milliliter 09/24/2012 No longer Active Rocephin 500 mg Solution for Injection RxNorm: 283321 02/15/2012 No longer Active Influenza Virus Vaccine [...] 26.9 % 11/07/2016 Cbc With Differential Ord2 [place]% 6.1 % 11/07/2016 Cbc With Differential Ord2 [...] 2.48 K/ul 11/07/2016 Cbc With Differential Ord2 [place] ABS# 0.6 K/ul 11/07/2016 Cbc With Differential Ord2 Eos ABS# 0.3 K/ul 11/07/2016 Cbc With Differential Ord2 Baso ABS# 0.1 K/ul 11/07/2016 Comp Metabolic Wve337 NA 139 mEq/L 11/07/2016 Comp Metabolic Tpm819 K 3.8 mEq/L 11/07/2016 Comp Metabolic Aeh751 CL 106 mEq/L 11/07/2016 Comp Metabolic Gro675 CO2 25.0 mEq/L 11/07/2016 Comp Metabolic Xvn193 ANION GAP 12 11/07/2016 Comp Metabolic Vxu619 GLUCOSE 98 mg/dL 11/07/2016 Comp Metabolic Pha829 Creat 0.8 mg/dL 11/07/2016 Comp Metabolic Phg235 eGFR 71 ml/min/1.73m2 11/07/2016 Comp Metabolic Egm739 BUN 36 mg/dL 11/07/2016 Comp Metabolic Jcq273 B/C Ratio 42.9 Ratio 11/07/2016 Comp Metabolic Jhq256 CALCIUM 9.9 mg/dL 11/07/2016 Comp Metabolic Okl703 ALK PHOS 57 U/L 11/07/2016 Comp Metabolic Bjg564 AST(SGOT) 24 U/L 11/07/2016 Comp Metabolic Xou992 ALT(SGPT) 28 U/L 11/07/2016 Comp Metabolic Fzo732 BILI T 0.4 mg/dL 11/07/2016 Comp Metabolic Ldm117 ALBUMIN 4.2 g/dL 11/07/2016 Comp Metabolic Rpa658 TPRO 7.0 g/dL 11/07/2016 Comp Metabolic Esh374 GLOB 2.8 g/dL 11/07/2016 Comp Metabolic Uhm224 A/G Ratio 1.5 Ratio 11/07/2016 Comp Metabolic Ybv666 Osmo 286 mOsmo 11/07/2016 Free T4 Qlg732 FREE T4 0.75 ng/dL 11/07/2016 Tsh Ord6 hTSH II 3.46 uIU/mL 11/07/2016 Comp Metabolic Ful625 NA 138 mEq/L 05/10/2016 Comp Metabolic Cyk972 K 3.8 mEq/L 05/10/2016 Comp Metabolic Rla842 CL 102 mEq/L 05/10/2016 Comp Metabolic Ton902 CO2 29.0 mEq/L 05/10/2016 Comp Metabolic Wvr947 ANION GAP 11 05/10/2016 Comp Metabolic Vng956 GLUCOSE 107 mg/dL 05/10/2016 Comp Metabolic Qvf795 Creat 0.7 mg/dL 05/10/2016 Comp Metabolic Euy082 eGFR 93 ml/min/1.73m2 05/10/2016 Comp Metabolic Qpd848 BUN 18 mg/dL 05/10/2016 Comp Metabolic Lpm135 B/C Ratio 26.9 Ratio 05/10/2016 Comp Metabolic Jxv135 CALCIUM 9.8 mg/dL 05/10/2016 Comp Metabolic Xmk465 ALK PHOS 60 U/L 05/10/2016 Comp Metabolic Szd277 AST(SGOT) 21 U/L 05/10/2016 Comp Metabolic Arp492 ALT(SGPT) 23 U/L 05/10/2016 Comp Metabolic Wcz921 BILI T 0.5 mg/dL 05/10/2016 Comp Metabolic Irx220 ALBUMIN 4.1 g/dL 05/10/2016 Comp Metabolic Jhh262 TPRO 6.7 g/dL 05/10/2016 Comp Metabolic Rwg447 GLOB 2.7 g/dL 05/10/2016 Comp Metabolic Hks537 A/G Ratio 1.5 Ratio 05/10/2016 Comp Metabolic Fip857 Osmo 278 mOsmo 05/10/2016 Lipid Ord30 CHOL 169 mg/dL 05/10/2016 Lipid Ord30 HDL 50.0 mg/dl 05/10/2016 Lipid Ord30 TRIG 161 mg/dL 05/10/2016 Lipid Ord30 LDL 87 mg/dL 05/10/2016 Lipid Ord30 C/HDL 3.4 Ratio 05/10/2016 Comp Metabolic Dzw971 NA 137 mEq/L 06/12/2015 Comp Metabolic Wtt904 K 3.8 mEq/L 06/12/2015 Comp Metabolic Wwt831 CL 104 mEq/L 06/12/2015 Comp Metabolic Hsd834 CO2 24.0 mEq/L 06/12/2015 Comp Metabolic Vng072 ANION GAP 13 06/12/2015 Comp Metabolic Tdz324 GLUCOSE 92 mg/dL 06/12/2015 Comp Metabolic Odu541 Creat 0.7 mg/dL 06/12/2015 Comp Metabolic Wyj363 eGFR 87 ml/min/1.73m2 06/12/2015 Comp Metabolic Fub092 BUN 31 mg/dL 06/12/2015 Comp Metabolic Uxq874 B/C Ratio 43.7 Ratio 06/12/2015 Comp Metabolic Mov680 CALCIUM 10.0 mg/dL 06/12/2015 Comp Metabolic Xqr528 ALK PHOS 58 U/L 06/12/2015 Comp Metabolic Gxm897 AST(SGOT) 32 U/L 06/12/2015 Comp Metabolic Muc906 ALT(SGPT) 33 U/L 06/12/2015 Comp Metabolic Oyy535 BILI T 0.5 mg/dL 06/12/2015 Comp Metabolic Kxc565 ALBUMIN 4.1 g/dL 06/12/2015 Comp Metabolic Jrk291 TPRO 6.6 g/dL 06/12/2015 Comp Metabolic Gpc504 GLOB 2.5 g/dL 06/12/2015 Comp Metabolic Zxc180 A/G Ratio 1.6 Ratio 06/12/2015 Comp Metabolic Ies869 Osmo 280 mOsmo 06/12/2015 Cbc With Differential [...] Differential Ord2 RDW 14.2 % 06/12/2015 CBC [id number] WBC 8.7 10e9/L 04/30/2013 CBC [id number] RBC 4.63 10e12/L 04/30/2013 CBC [id number] HGB 14.1 g/dL 04/30/2013 CBC [id number] HCT DET 42.2 % 04/30/2013 CBC [id number] MCV 91.1 fL 04/30/2013 CBC [id number] MCH 30.5 pg 04/30/2013 CBC [id number] MCHC 33.4 g/dL 04/30/2013 CBC [id number] PLT 248 10e9/L 04/30/2013 CBC [id number] MPV 12.1 fL 04/30/2013 CBC [id number] LARA % 59.0 % 04/30/2013 CBC [id number] LY % 27.6 % 04/30/2013 CBC 0933664 MON % 8.0 % 04/30/2013 CBC 0319165 EOS % 4.8 % 04/30/2013 CBC 1040285 BASO % 0.6 % 04/30/2013 CBC 2854445 RDW 13.3 % 04/30/2013 CBC 5613254 ABS LARA 5.13 10e9/L 04/30/2013 CBC 9556323 ABS LYMPH 2.40 10e9/L 04/30/2013 CBC 8109443 ABS MONO 0.70 10e9/L 04/30/2013 CBC 0760369 ABS EOS 0.42 10e9/L 04/30/2013 CBC 6626864 ABS BASO 0.05 10e9/L 04/30/2013 CBC 1236139 RDW-SD 43.1 fL 04/30/2013 TSH 4654383 TSH 4.339 uIU/ML 04/30/2013 A1C HPLC 8325529 A1C HPLC 77850-3 5.6 % 04/30/2013 FREE T4 1309869 FREE T4 0.84 NG/DL 04/30/2013 GFR CALC 9670124 GFR AA >60 ML/MIN 04/30/2013 GFR CALC 7782065 GFR NON-AA >60 ML/MIN 04/30/2013 CHEM 14 9827995 AST 22 U/L 04/30/2013 CHEM 14 0867693 ALT 22 IU/L 04/30/2013 CHEM 14 2631977 BUN 24 MG/DL 04/30/2013 CHEM 14 1868658 ALBUMIN 4.2 GM/DL 04/30/2013 CHEM 14 8742528 CHLORIDE 107 MMOL/L 04/30/2013 CHEM 14 5597799 BILI TOT 0.3 MG/DL 04/30/2013 CHEM 14 3417508 ALK PHOS 88 U/L 04/30/2013 CHEM 14 4266530 SODIUM 141 MMOL/L 04/30/2013 CHEM 14 5737967 CREATININE 0.60 MG/DL 04/30/2013 CHEM 14 3737606 CALCIUM 9.9 MG/DL 04/30/2013 CHEM 14 6440823 POTASSIUM 3.7 MMOL/L 04/30/2013 CHEM 14 1566458 PROT TOT 6.6 GM/DL 04/30/2013 CHEM 14 3595089 GLUCOSE 123 MG/DL 04/30/2013 CHEM 14 1970465 BICARB 25 MMOL/L 04/30/2013 CHEM 14 8664071 ANION GAP 9 MEQ/L 04/30/2013 LIPID GRP HDL TEST 46 MG/DL 04/30/2013 LIPID GRP TRIG 148 MG/DL 04/30/2013 LIPID GRP TEST LDL 75 MG/DL 04/30/2013 LIPID GRP CHOL 151 MG/DL 04/30/2013 LIPID GRP RCHOL/HDL 3.28 RATIO 04/30/2013 TSH 0884196 TSH 3.341 uIU/ML 11/29/2012 CBC 3639271 WBC 8.4 10e9/L 11/29/2012 CBC 2808863 RBC 4.77 10e12/L 11/29/2012 CBC 0424536 HGB 14.9 g/dL 11/29/2012 CBC 9061827 HCT DET 44.2 % 11/29/2012 CBC 7732409 MCV 92.7 fL 11/29/2012 CBC 2965477 MCH 31.2 pg 11/29/2012 CBC 9672635 MCHC 33.7 g/dL 11/29/2012 CBC 3645192 PLT 253 10e9/L 11/29/2012 CBC 0047279 MPV 11.8 fL 11/29/2012 CBC 1686304 LARA % 54.9 % 11/29/2012 CBC 1865851 LY % 29.0 % 11/29/2012 CBC 9982601 MON % 10.4 % 11/29/2012 CBC 6382738 EOS % 5.1 % 11/29/2012 CBC 5462953 BASO % 0.6 % 11/29/2012 CBC 9789258 RDW 13.8 % 11/29/2012 CBC 7290745 ABS LARA 4.61 10e9/L 11/29/2012 CBC 4722628 ABS LYMPH 2.44 10e9/L 11/29/2012 CBC 7743320 ABS MONO 0.87 10e9/L 11/29/2012 CBC 2095297 ABS EOS 0.43 10e9/L 11/29/2012 CBC 0452460 ABS BASO 0.05 10e9/L 11/29/2012 CBC 1962849 RDW-SD 45.9 fL 11/29/2012 CHEM 14 8627942 AST 25 U/L 11/29/2012 CHEM 14 2732424 ALT 26 IU/L 11/29/2012 CHEM 14 5504403 BUN 25 MG/DL 11/29/2012 CHEM 14 7693317 ALBUMIN 4.4 GM/DL 11/29/2012 CHEM 14 0025683 CHLORIDE 106 MMOL/L 11/29/2012 CHEM 14 9386236 BILI TOT 0.4 MG/DL 11/29/2012 CHEM 14 5575344 ALK PHOS 86 U/L 11/29/2012 CHEM 14 6222768 SODIUM 141 MMOL/L 11/29/2012 CHEM 14 5034229 CREATININE 0.80 MG/DL 11/29/2012 CHEM 14 3762644 CALCIUM 9.7 MG/DL 11/29/2012 CHEM 14 7313428 POTASSIUM 4.0 MMOL/L 11/29/2012 CHEM 14 8447582 PROT TOT 6.6 GM/DL 11/29/2012 CHEM 14 1207756 GLUCOSE 112 MG/DL 11/29/2012 CHEM 14 1124645 BICARB 29 MMOL/L 11/29/2012 CHEM 14 7942002 ANION GAP 6 MEQ/L 11/29/2012 A1C HPLC 8413276 A1C HPLC 31498-4 5.5 % 11/29/2012 LIPID GRP 7841932 HDL TEST 54 MG/DL 11/29/2012 LIPID GRP 1837980 TRIG 77 MG/DL 11/29/2012 LIPID GRP TEST LDL 78 MG/DL 11/29/2012 LIPID GRP CHOL 147 MG/DL 11/29/2012 LIPID GRP RCHOL/HDL 2.72 RATIO 11/29/2012 FREE T4 6839948 FREE T4 1.23 NG/DL 11/29/2012 GFR CALC 8126541 GFR AA >60 ML/MIN 11/29/2012 GFR CALC 7874615 GFR NON-AA >60 ML/MIN 11/29/2012 CHEM 14 5660366 AST 23 U/L 08/07/2012 CHEM 14 0258468 ALT 34 IU/L 08/07/2012 CHEM 14 0986730 BUN 26 MG/DL 08/07/2012 CHEM 14 2943580 ALBUMIN 4.4 GM/DL 08/07/2012 CHEM 14 4683003 CHLORIDE 105 MMOL/L 08/07/2012 CHEM 14 3024647 BILI TOT 0.5 MG/DL 08/07/2012 CHEM 14 9581468 ALK PHOS 79 U/L 08/07/2012 CHEM 14 7718305 SODIUM 140 MMOL/L 08/07/2012 CHEM 14 9773713 CREATININE 0.71 MG/DL 08/07/2012 CHEM 14 5682198 CALCIUM 10.4 MG/DL 08/07/2012 CHEM 14 5106686 POTASSIUM 3.8 MMOL/L 08/07/2012 CHEM 14 9189977 PROT TOT 6.8 GM/DL 08/07/2012 CHEM 14 1316139 GLUCOSE 104 MG/DL 08/07/2012 CHEM 14 7603589 BICARB 27 MMOL/L 08/07/2012 CHEM 14 1621624 ANION GAP 8 MEQ/L 08/07/2012 A1C HPLC 5248220 A1C HPLC 06786-2 5.4 % 08/07/2012 FREE T4 2296269 FREE T4 1.11 NG/DL 08/07/2012 LIPID GRP HDL TEST 50 MG/DL 08/07/2012 LIPID GRP TRIG 127 MG/DL 08/07/2012 LIPID GRP TEST LDL 93 MG/DL 08/07/2012 LIPID GRP CHOL 168 MG/DL 08/07/2012 LIPID GRP 6659612 RCHOL/HDL 3.36 RATIO 08/07/2012 CBC 4706515 WBC 8.7 10e9/L 08/07/2012 CBC 6957837 RBC 4.67 10e12/L 08/07/2012 CBC 3796202 HGB 14.4 g/dL 08/07/2012 CBC 9286206 HCT DET 42.8 % 08/07/2012 CBC 6454850 MCV 91.6 fL 08/07/2012 CBC 0438311 MCH 30.8 pg 08/07/2012 CBC 6547994 MCHC 33.6 g/dL 08/07/2012 CBC 7428807 PLT 271 10e9/L 08/07/2012 CBC 6995259 MPV 12.3 fL 08/07/2012 CBC 6836475 LARA % 50.6 % 08/07/2012 CBC 5392265 LY % 34.9 % 08/07/2012 CBC 4290665 MON % 9.1 % 08/07/2012 CBC 8771666 EOS % 5.1 % 08/07/2012 CBC 5961698 BASO % 0.3 % 08/07/2012 CBC 6144142 RDW 13.6 % 08/07/2012 CBC 5292112 ABS LARA 4.40 10e9/L 08/07/2012 CBC 9833738 ABS LYMPH 3.04 10e9/L 08/07/2012 CBC 0721641 ABS MONO 0.79 10e9/L 08/07/2012 CBC 1462626 ABS EOS 0.44 10e9/L 08/07/2012 CBC 5910817 ABS BASO 0.03 10e9/L 08/07/2012 CBC 6024937 RDW-SD 44.1 fL 08/07/2012 TSH 0959869 TSH 7.419 uIU/ML 08/07/2012 GFR CALC 3754560 GFR AA >60 ML/MIN 08/07/2012 GFR CALC 1641094 GFR NON-AA >60 ML/MIN 08/07/2012 A1C HPLC 3344826 A1C HPLC 73615-0 5.3 % 02/21/2012 TSH 6786401 TSH 0.832 uIU/ML 02/16/2012 FREE T4 7805160 FREE T4 1.04 NG/DL 02/16/2012 GFR CALC 5293776 GFR AA >60 ML/MIN 02/16/2012 GFR CALC 4864121 GFR NON-AA >60 ML/MIN 02/16/2012 BMP 4872767 GLUCOSE 112 MG/DL 02/16/2012 BMP CREATININE 0.65 MG/DL 02/16/2012 BMP BUN 17 MG/DL 02/16/2012 BMP SODIUM 144 MMOL/L 02/16/2012 [facility] POTASSIUM 4.0 MMOL/L 02/16/2012 [facility] CHLORIDE 107 MMOL/L 02/16/2012 BMP BICARB 29 MMOL/L 02/16/2012 [facility] ANION GAP 8 MEQ/L 02/16/2012 BMP CALCIUM 9.5 MG/DL 02/16/2012 CBC 1765962 WBC 7.1 10e9/L 02/16/2012 CBC 3642678 RBC 4.47 10e12/L 02/16/2012 CBC 4280263 HGB 13.5 g/dL 02/16/2012 CBC 7551315 HCT DET 40.7 % 02/16/2012 CBC 5395087 MCV 91.1 fL 02/16/2012 CBC 2424665 MCH 30.2 pg 02/16/2012 CBC 5439805 MCHC 33.2 g/dL 02/16/2012 CBC 5747986 PLT 238 10e9/L 02/16/2012 CBC 2610121 MPV 11.4 fL 02/16/2012 CBC 9545969 LARA % 55.7 % 02/16/2012 CBC 3457398 LY % 29.6 % 02/16/2012 CBC 3745052 MON % 9.2 % 02/16/2012 CBC 8356114 EOS % 5.1 % 02/16/2012 CBC 5277114 BASO % 0.4 % 02/16/2012 CBC 1482756 RDW 13.0 % 02/16/2012 CBC 1707458 ABS LARA 3.95 10e9/L 02/16/2012 CBC 9990410 ABS LYMPH 2.10 10e9/L 02/16/2012 CBC 2557510 ABS MONO 0.65 10e9/L 02/16/2012 CBC 7913833 ABS EOS 0.36 10e9/L 02/16/2012 CBC 5023272 ABS BASO 0.03 10e9/L 02/16/2012 CBC 9553788 RDW-SD 42.4 fL 02/16/2012 URINALYSIS NONAUTO W/O SCOPE 54017 Specific [place] 1.015 DateTime(Free Text in Aprima) URINALYSIS NONAUTO W/O SCOPE 82798 PH 7 DateTime(Free Text in Aprima) URINALYSIS NONAUTO W/O SCOPE 94287 GLUCOSE neg DateTime(Free Text in Aprima) URINALYSIS NONAUTO W/O SCOPE 54948 Protein 1+ DateTime(Free Text in Aprima) URINALYSIS NONAUTO W/O SCOPE 65194 Blood neg DateTime(Free Text in Aprima) URINALYSIS NONAUTO W/O SCOPE 54393 Bilirubin neg DateTime(Free Text in Aprima) URINALYSIS NONAUTO W/O SCOPE 87363 Ketones neg DateTime(Free Text in Aprima) URINALYSIS NONAUTO W/O SCOPE 26642 Urobilinogen neg DateTime(Free Text in Aprima) URINALYSIS NONAUTO W/O SCOPE 29271 Nitrite postive DateTime(Free Text in Aprima) URINALYSIS NONAUTO W/O SCOPE 96037 Leukocytes 3+ DateTime(Free Text in Aprima) URINALYSIS NONAUTO W/O SCOPE 41952 Specific [place] 1.030 DateTime(Free Text in Aprima) URINALYSIS NONAUTO W/O SCOPE 55840 PH 6 DateTime(Free Text in Aprima) URINALYSIS NONAUTO W/O SCOPE 32983 GLUCOSE neg DateTime(Free Text in Aprima) URINALYSIS NONAUTO W/O SCOPE 69572 Protein neg DateTime(Free Text in Aprima) URINALYSIS NONAUTO W/O SCOPE 90323 Blood neg DateTime(Free Text in Aprima) URINALYSIS NONAUTO W/O SCOPE 75761 Bilirubin neg DateTime(Free Text in Aprima) URINALYSIS NONAUTO W/O SCOPE 95066 Ketones neg DateTime(Free Text in Aprima) URINALYSIS NONAUTO W/O SCOPE 77415 Urobilinogen neg DateTime(Free Text in Aprima) URINALYSIS NONAUTO W/O SCOPE 19343 Nitrite neg DateTime(Free Text in Aprima) URINALYSIS NONAUTO W/O SCOPE 76378 Leukocytes trace DateTime(Free Text in Aprima) URINALYSIS NONAUTO W/O SCOPE 91626 Specific [place] 1.005 DateTime(Free Text in Aprima) URINALYSIS NONAUTO W/O SCOPE 70436 PH 5 DateTime(Free Text in Aprima) URINALYSIS NONAUTO W/O SCOPE 11000 GLUCOSE neg DateTime(Free Text in Aprima) URINALYSIS NONAUTO W/O SCOPE 57390 Protein neg DateTime(Free Text in Aprima) URINALYSIS NONAUTO W/O SCOPE 81712 Blood neg DateTime(Free Text in Aprima) URINALYSIS NONAUTO W/O SCOPE 16408 Bilirubin neg DateTime(Free Text in Aprima) URINALYSIS NONAUTO W/O SCOPE 73789 Ketones neg DateTime(Free Text in Aprima) URINALYSIS NONAUTO W/O SCOPE 47017 Urobilinogen neg DateTime(Free Text in Aprima) URINALYSIS NONAUTO W/O SCOPE 10978 Nitrite neg DateTime(Free Text in Aprima) URINALYSIS NONAUTO W/O SCOPE 53008 Leukocytes neg DateTime(Free Text in Aprima) UA 08385 Specific [place] 1.030 DateTime(Free Text in Aprima) UA 51550 PH 5 DateTime(Free Text in Aprima) UA 35082 GLUCOSE neg DateTime(Free Text in Aprima) UA 61786 Protein trace DateTime(Free Text in Aprima) UA 62116 Blood large DateTime(Free Text in Aprima) UA 15464 Bilirubin neg DateTime(Free Text in Aprima) UA 44413 Ketones neg DateTime(Free Text in Aprima) UA 37894 Urobilinogen neg DateTime(Free Text in Aprima) UA 04800 Nitrite neg DateTime(Free Text in Aprima) UA 57147 Leukocytes large DateTime(Free Text in Apr) Review [...] jauregui 01/07/2015 None Full Exam - General formerly [facility] Psychiatric orientation/consciousness Overall: oriented to person, place [...] Procedure Codes Date DESTRUCT PREMALG LESION CPT-4: 45078Pfjnyii 12/05/2016 DESTRUCT PREMALG LES 2-14 CPT-4: 84669Ydtlhgh 12/05/2016 URINALYSIS NONAUTO W/O SCOPE CPT-4: 54817Zetywcf 11/28/2016 ROCEPHIN, PER 250 MG CPT-4: G9607Pmoimym 11/28/2016 PPPS, SUBSEQ VISIT CPT-4: O8955Xlguwyv 11/07/2016 THER/PROPH/DIAG INJ SC/IM CPT-4: 85279Nhfbcqm 11/07/2016 TRIAMCINOLONE ACET INJ NOS CPT-4: Y4381Wvqmpzx 11/07/2016 ROCEPHIN, PER 250 MG CPT-4: W8745Nszlqcz 11/07/2016 THER/PROPH/DIAG INJ SC/IM CPT-4: 32995Ymhweql 08/15/2016 TRIAMCINOLONE ACET INJ NOS CPT-4: X7374Xazsoxk 08/15/2016 ROCEPHIN, PER 250 MG CPT-4: Z2427Shorhqv 08/15/2016 URINALYSIS NONAUTO W/O SCOPE CPT-4: 44299Gmmlmyt 05/05/2016 ROCEPHIN, PER 250 MG CPT-4: M6368Btjbrso 12/07/2015 TRIAMCINOLONE ACET INJ NOS CPT-4: M1053Codlwkk 11/24/2015 ROCEPHIN, PER 250 MG CPT-4: I3268Pvltmsf 11/24/2015 THER/PROPH/DIAG INJ SC/IM CPT-4: 67842Gctqyjt 11/24/2015 THER/PROPH/DIAG INJ SC/IM CPT-4: 10175Qqmqinn 08/27/2015 KETOROLAC TROMETHAMINE INJ CPT-4: R6563Vjjings 08/27/2015 PROMETHAZINE HCL INJECTION CPT-4: R8866Ozsyytv 08/27/2015 THER/PROPH/DIAG INJ SC/IM CPT-4: 13373Xwgstsq 08/10/2015 TRIAMCINOLONE ACET INJ NOS CPT-4: Z6370Fyefyyg 08/10/2015 ROCEPHIN, PER 250 MG CPT-4: N1640Nsgcrmb 08/10/2015 C WOUN RTS (CULTURE OTHR SPECIMN AEROBIC) CPT-4: 80909Yxxbapw 07/28/2015 THER/PROPH/DIAG INJ SC/IM CPT-4: 08427Orzrzsr 03/19/2015 TRIAMCINOLONE ACET INJ NOS CPT-4: W3016Nbngfdy 03/19/2015 ROCEPHIN, PER 250 MG CPT-4: R8762Ffujizf 06/23/2014 TRIAMCINOLONE ACET INJ NOS CPT-4: D7960Yktztgu 06/23/2014 INJ TRIGGER POINT 1/2 MUSCL CPT-4: 36443Cowoxoa 06/05/2014 URINALYSIS NONAUTO W/O SCOPE CPT-4: 15495Tddbukk 02/11/2014 URINALYSIS NONAUTO W/O SCOPE CPT-4: 02243Zabnefg 10/15/2013 ROCEPHIN, PER 250 MG CPT-4: I4510Vshotmz 09/24/2013 THER/PROPH/DIAG INJ SC/IM CPT-4: 76216Mkmgxej 09/19/2013 ROCEPHIN, PER 250 MG CPT-4: B0056Xeatqxv 09/19/2013 PRESCRIP TRANSMIT VIA ERX SY CPT-4: U7319Jtufhtk 08/05/2013 ROCEPHIN, PER 250 MG CPT-4: C1315Fzkktrr 07/10/2013 THER/PROPH/DIAG INJ SC/IM CPT-4: 26862Twbedcb 07/10/2013 TRIAMCINOLONE ACET INJ NOS CPT-4: N4845Mxvatim 07/10/2013 PRESCRIP TRANSMIT VIA ERX SY CPT-4: Y8872Zruzxkv 07/10/2013 73949 EST. PATIENT, LEVEL III CPT-4: 16187Lcsxhea 06/03/2013 PRESCRIP TRANSMIT VIA ERX SY CPT-4: M0169Igvdzao 06/03/2013 PRESCRIP TRANSMIT VIA ERX SY CPT-4: N9939Vomqbdf 05/07/2013 ROUTINE VENIPUNCTURE CPT-4: 47638Hebejuk 04/30/2013 ROUTINE VENIPUNCTURE CPT-4: 13704Vqupzaf 11/29/2012 TRIAMCINOLONE ACET INJ NOS CPT-4: S7902Hwmbdet 09/24/2012 THER/PROPH/DIAG INJ SC/IM CPT-4: 32284Ogskugu 09/24/2012 URINALYSIS NONAUTO W/O SCOPE CPT-4: 80373Govduum 09/24/2012 PRESCRIP TRANSMIT VIA ERX SY CPT-4: F7668Wunxail 09/24/2012 PRESCRIP TRANSMIT VIA ERX SY CPT-4: K8094Srjlzzr 09/10/2012 PRESCRIP TRANSMIT VIA ERX SY CPT-4: T7213Ovizmvz 08/08/2012 ROUTINE VENIPUNCTURE CPT-4: 79252Knslqwe 08/07/2012 ROUTINE VENIPUNCTURE CPT-4: 43032Ujqoxki 02/16/2012 URINALYSIS NONAUTO W/O SCOPE CPT-4: 85967Glfywkg 02/15/2012 ROCEPHIN, PER 250 MG CPT-4: D3470Fvnnogu 02/15/2012 PRESCRIP TRANSMIT VIA ERX SY CPT-4: I6547Xcbpifp 02/15/2012 ROUTINE VENIPUNCTURE CPT-4: 60035Qkrsbzo 11/08/2011 ROCEPHIN, PER 250 MG CPT-4: B3850Mhouvvf 07/14/2011 THER/PROPH/DIAG INJ SC/IM CPT-4: 72502Ezkosar 07/14/2011 Influenza Virus Vaccine, Split Virus, >3 Yrs, IM CPT-4: 75816Keazanm 05/23/2011 IMMUNIZATION ADMIN CPT-4: 34638Sljbmov 05/23/2011 THER/PROPH/DIAG INJ SC/IM CPT-4: 60845Zxmpqbg 05/03/2011 ROCEPHIN, PER 250 MG CPT-4: X4071Blimrch 05/03/2011 TRIAMCINOLONE ACET INJ NOS CPT-4: F4309Ppcnkci 05/03/2011 Vital Signs Date Vital 02/20/2017 Blood Pressure 1: 142/80 Code: 8480-6 BMI: 30.9 Code: 38770-1 Heart Rate 1: 75 bpm Height: 4'11" SpO2: 97% Weight: 153 lbs 02/06/2017 Blood Pressure 1: 138/90 Code: 8480-6 BMI: 31.5 Code: 99554-7 Heart Rate 1: 61 bpm Height: 4'11" SpO2: 98% Weight: 156 lbs 12/05/2016 Blood Pressure 1: 122/72 Code: 8480-6 Heart Rate 1: 59 bpm Height: 4'11" SpO2: 98% Weight: 11/28/2016 Blood Pressure 1: 154/86 Code: 8480-6 BMI: 31.3 Code: 54016-7 Heart Rate 1: 64 bpm Height: 4'11" SpO2: 94% Temperature: 36.2 (C) / 97.2 (F) Weight: 155 lbs 11/07/2016 Blood Pressure 1: 128/64 Code: 8480-6 BMI: 31.5 Code: 98739-0 Heart Rate 1: 59 bpm Height: 4'11" SpO2: 97% Weight: 156 lbs 08/15/2016 Blood Pressure 1: 110/62 Code: 8480-6 BMI: 31.5 Code: 94547-2 Heart Rate 1: 76 bpm Height: 4'11" SpO2: 97% Weight: 156 lbs 06/07/2016 Blood Pressure 1: 120/80 Code: 8480-6 BMI: 32.9 Code: 28014-0 Heart Rate 1: 63 bpm Height: 4'11" SpO2: 93% Temperature: 36.5 (C) / 97.7 (F) Weight: 163 lbs 03/15/2016 Blood Pressure 1: 90/42 Code: 8480-6 Heart Rate 1: 65 bpm SpO2: 94% 03/14/2016 Blood Pressure 1: 188/110 Code: 8480-6 Heart Rate 1: 68 bpm SpO2: 96% 02/22/2016 Blood Pressure 1: 158/80 Code: 8480-6 BMI: 32.7 Code: 01101-0 Heart Rate 1: 71 bpm Height: 4'11" SpO2: 95% Weight: 162 lbs 12/07/2015 Blood Pressure 1: 140/88 Code: 8480-6 BMI: 32.9 Code: 60512-6 Heart Rate 1: 99 bpm Height: 4'11" SpO2: 94% Temperature: 35.9 (C) / 96.6 (F) Weight: 163 lbs 11/24/2015 Blood Pressure 1: 144/78 Code: 8480-6 BMI: 33.7 Code: 92883-4 Heart Rate 1: 60 bpm Height: 4'11" SpO2: 98% Temperature: 36.6 (C) / 97.9 (F) Weight: 167 lbs 08/27/2015 Blood Pressure 1: 164/82 Code: 8480-6 BMI: 32.3 Code: 91692-3 Heart Rate 1: 60 bpm Height: 4'11" SpO2: 93% Weight: 160 lbs 08/10/2015 Blood Pressure 1: 130/60 Code: 8480-6 BMI: 32.5 Code: 86492-6 Heart Rate 1: 64 bpm Height: 4'11" SpO2: 97% Weight: 161 lbs 07/28/2015 Blood Pressure 1: 124/68 Code: 8480-6 BMI: 32.5 Code: 64418-7 Heart Rate 1: 69 bpm Height: 4'11" SpO2: 97% Weight: 161 lbs 06/11/2015 Blood Pressure 1: 148/80 Code: 8480-6 BMI: 32.9 Code: 86965-5 Heart Rate 1: 70 bpm Height: 4'11" SpO2: 94% Weight: 163 lbs 03/19/2015 Blood Pressure 1: 150/102 Code: 8480-6 Blood Pressure 2: 152/92 Code: 8480-6 BMI: 32.5 Code: 39547-5 Heart Rate 1: 71 bpm Height: 4'11" SpO2: 96% Weight: 161 lbs 01/07/2015 Blood Pressure 1: 126/84 Code: 8480-6 Heart Rate 1: 80 bpm Height: 4'11" 09/23/2014 Blood Pressure 1: 112/72 Code: 8480-6 BMI: 33.9 Code: 62517-3 Heart Rate 1: 72 bpm Height: 4'11" Weight: 168 lbs 08/05/2014 Blood Pressure 1: 140/86 Code: 8480-6 BMI: 33.3 Code: 76378-6 Height: 4'11" Weight: 165 lbs 06/23/2014 Blood Pressure 1: 132/70 Code: 8480-6 BMI: 32.9 Code: 23130-2 Heart Rate 1: 58 bpm Height: 4'11" Temperature: 36.0 (C) / 96.8 (F) Weight: 163 lbs 06/05/2014 Blood Pressure 1: 121/85 Code: 8480-6 BMI: 34.3 Code: 23921-3 Height: 4'11" Weight: 170 lbs 04/03/2014 Blood Pressure 1: 128/80 Code: 8480-6 Heart Rate 1: 88 bpm Weight: 167 lbs 03/07/2014 Blood Pressure 1: 122/82 Code: 8480-6 BMI: 33.9 Code: 52851-2 Heart Rate 1: 68 bpm Height: 4'11" Weight: 168 lbs 11/21/2013 Blood Pressure 1: 100/58 Code: 8480-6 BMI: 33.7 Code: 84602-9 Heart Rate 1: 64 bpm Height: 4'11" Weight: 167 lbs 09/24/2013 Blood Pressure 1: 148/88 Code: 8480-6 Heart Rate 1: 68 bpm Weight: 09/19/2013 Blood Pressure 1: 120/80 Code: 8480-6 BMI: 33.9 Code: 78301-0 Heart Rate 1: 80 bpm Height: 4'11" Temperature: 36.9 (C) / 98.5 (F) Weight: 168 lbs 08/05/2013 Blood Pressure 1: 128/80 Code: 8480-6 BMI: 34.3 Code: 76169-1 Heart Rate 1: 64 bpm Height: 4'11" Temperature: 36.2 (C) / 97.2 (F) Weight: 170 lbs 07/10/2013 Blood Pressure 1: 120/84 Code: 8480-6 BMI: 36.0 Code: 88989-5 Heart Rate 1: 90 bpm Height: 4'11" SpO2: 97% Temperature: 36.8 (C) / 98.2 (F) Weight: 178 lbs 06/03/2013 Blood Pressure 1: 136/94 Code: 8480-6 BMI: 34.7 Code: 11727-2 Heart Rate 1: 68 bpm Height: 4'11" Temperature: 36.7 (C) / 98.0 (F) Weight: 172 lbs 05/13/2013 Blood Pressure 1: 132/90 Code: 8480-6 Heart Rate 1: 68 bpm 05/07/2013 Blood Pressure 1: 168/100 Code: 8480-6 BMI: 34.3 Code: 91225-9 Heart Rate 1: 76 bpm Height: 4'11" Weight: 170 lbs 12/03/2012 Blood Pressure 1: 142/78 Code: 8480-6 BMI: 33.5 Code: 35128-7 Heart Rate 1: 76 bpm Height: 4'11" Weight: 166 lbs 09/24/2012 Blood Pressure 1: 116/70 Code: 8480-6 Heart Rate 1: 68 bpm Respiratory Rate: 16 bpm Temperature: 36.9 (C) / 98.4 (F) Weight: 162 lbs 09/10/2012 Blood Pressure 1: 116/80 Code: 8480-6 BMI: 33.7 Code: 95838-6 Heart Rate 1: 76 bpm Height: 4'11" [...] 1: 149/85 Code: 8480-6 BMI: 32.9 Code: 89617-9 Heart Rate 1: 79 bpm Height: 4'11" Weight: 164 lbs 05/03/2011 Blood Pressure 1: 122/79 Code: 8480-6 BMI: 30.8 Code: 58270-5 Heart Rate 1: 72 bpm Height: 5'1" Weight: 163 lbs 04/25/2011 Blood Pressure 1: 137/84 Code: 8480-6 BMI: 31.0 Code: 74087-8 Heart Rate 1: 63 bpm Height: 5'1" [...] days ago 02/15/2012 while visiting mother in [place] had uti and was put on pyridum [...] surg in december. then took trip to [facility] to see mother and has had [...] Quality chronic 08/01/2011 states went shopping on [employer] over night without taking any of medications [...] lower quadrant pain[ICD10: R10.32] Isabelle Goldman MD, [facility] CPT-4: 82573 02/20/[id number]) [id number] EST. PATIENT, LEVEL IV Diagnosis: Generalized anxiety disorder[ICD10: F41.1] Diagnosis: Major depressive disorder, recurrent, moderate[ICD10: F33.1] Diagnosis: Left upper quadrant pain[ICD10: R10.12] Diagnosis: Epigastric pain[ICD10: R10.13] Diagnosis: Actinic keratosis[ICD10: L57.0] [facility] CPT-4: 99782 02/06/2017 [id number] 92539 EST. PATIENT, LEVEL III Diagnosis: Actinic keratosis[ICD10: L57.0] Diagnosis: Major depressive disorder, recurrent, moderate[ICD10: F33.1] Melba Goldman MD, [facility] CPT-4: 82144 12/05/2016 ([id number]) 05989 EST. PATIENT, LEVEL III Diagnosis: Acute recurrent maxillary sinusitis[ICD10: J01.01] Diagnosis: Dysuria[ICD10: R30.0] Shahida Goldman MD, [facility] CPT-4: 33915 11/28/2016 75482 EST. PATIENT, LEVEL IV Diagnosis: Other acute sinusitis[ICD10: J01.80] Diagnosis: Acute laryngopharyngitis[ICD10: J06.0] Diagnosis: Other allergic rhinitis[ICD10: J30.89] Isabelle Goldman MD, [facility] CPT- 4: 48848 08/15/2016 ([id number]) 23697 EST. PATIENT, LEVEL III Diagnosis: Acute recurrent maxillary sinusitis[ICD10: J01.01] Diagnosis: Low back pain[ICD10: M54.5] Shahida Goldman MD, [facility] CPT-4: 54678 06/07/2016 ([id number]) Miscellaneous no charge Diagnosis: Essential (primary) hypertension[ICD10: I10] Shahida Goldman MD, [facility] CPT-4: 37644 03/15/2016 44223 EST. PATIENT, LEVEL IV Diagnosis: Essential (primary) hypertension[ICD10: I10] Diagnosis: Headache[ICD10: R51] Diagnosis: Generalized anxiety disorder[ICD10: F41.1] Shahida Goldman MD, [facility] CPT-4: 94266 03/14/2016 12296 EST. PATIENT, LEVEL III Diagnosis: Laceration without foreign body, left lower leg, initial encounter[ICD10: S81.812A] Isabelle Goldman MD, [facility] CPT-4: 41078 02/22/2016 ([id number]) 00194 EST. PATIENT, LEVEL III Diagnosis: Acute recurrent maxillary sinusitis[ICD10: J01.01] Diagnosis: Cough[ICD10: R05] Diagnosis: Allergic rhinitis due to pollen[ICD10: J30.1] Shahida Goldman MD, [facility] CPT-4: 51088 12/07/2015 ([id number]) 01434 EST. PATIENT, LEVEL IV Diagnosis: Essential (primary) hypertension[ICD10: I10] Diagnosis: Acute recurrent maxillary sinusitis[ICD10: J01.01] Diagnosis: Generalized anxiety disorder[ICD10: F41.1] Diagnosis: Cervicalgia[ICD10: M54.2] Diagnosis: Generalized intra-abdominal and pelvic swelling, mass and lump[ICD10: R19.07] Melba Goldman MD, [facility] CPT-4: 55837 11/24/2015 37927 EST. PATIENT, LEVEL III Diagnosis: Other migraine, intractable, without status migrainosus[ICD10: G43.819] Isabelle Goldman MD, [facility] CPT-4: 77012 08/27/2015 15088 EST. PATIENT, LEVEL III Diagnosis: Acute recurrent maxillary sinusitis[ICD10: J01.01] Diagnosis: Candidal stomatitis[ICD10: B37.0] Diagnosis: Acute laryngopharyngitis[ICD10: J06.0] Isabelle Goldman MD, [facility] CPT- 4: 63630 08/10/2015 09549 EST. PATIENT, LEVEL III Diagnosis: Superficial foreign body of left hand, initial encounter[ICD10: S60.552A] Melba Goldman MD, [facility] CPT-4: 59893 07/28/2015 ([id number]) 30487 EST. PATIENT, LEVEL III Diagnosis: Essential (primary) hypertension[ICD10: I10] Diagnosis: Tinea cruris[ICD10: B35.6] Diagnosis: Abnormal levels of other serum enzymes[ICD10: R74.8] Shahida Goldman MD, [facility] CPT-4: 04562 06/11/2015 ([id number]) 01349 EST. PATIENT, LEVEL IV Diagnosis: ESSENTIAL HYPERTENSION[ICD9: 401.9] Diagnosis: Hypothyroid[ICD9: 244.9] Diagnosis: ALLERGIC RHINITIS[ICD9: 477.9] Diagnosis: Anxiety[ICD9: 300.00] Diagnosis: Sleep apnea[ICD9: 780.57] Shahida Goldman MD, [facility] CPT-4: 62322 03/19/2015 ([id number]) 09994 EST. PATIENT, LEVEL III Diagnosis: ACUTE SINUSITIS[ICD9: 461.9] Celi Goldman MD, [facility] CPT-4: 09498 01/07/2015 ([id number]) 90271 EST. PATIENT, LEVEL III Diagnosis: Conjunctivitis[ICD9: 372.30] Shahida Goldman MD, [facility] CPT-4: 25183 09/23/2014 66258 EST. PATIENT, LEVEL II Diagnosis: Noninfected skin tear of leg[ICD9: 891.0] Shahida Goldman MD, [facility] CPT-4: 77560 08/05/2014 ([id number]) 50949 EST. PATIENT, LEVEL III Diagnosis: Chronic maxillary sinusitis[ICD9: 473.0] Shahida Goldman MD, [facility] CPT-4: 31442 06/23/2014 08011 EST. PATIENT, LEVEL II Diagnosis: Headache[ICD9: 784.0] Shahida Goldman MD, [facility] CPT-4: 67314 06/05/2014 ([id number]) 33638 EST. PATIENT, LEVEL III Diagnosis: Abrasion of right leg[ICD9: 916.0] Diagnosis: Headache[ICD9: 784.0] Diagnosis: ALLERGIC RHINITIS[ICD9: 477.9] Shahida Goldman MD, [facility] CPT-4: 02408 04/03/2014 47298 EST. PATIENT, LEVEL II Diagnosis: Tinea corporis[ICD9: 110.5] Diagnosis: Exposure to scabies[ICD9: V01.89] Shahida Goldman MD, [facility] CPT- 4: 20493 03/07/2014 ([id number]) 09170 EST. PATIENT, LEVEL III Diagnosis: ESSENTIAL HYPERTENSION[SNOMED: 98171194] Diagnosis: OSTEOARTH NOS-UNSPEC[ICD9: 715.90] Diagnosis: Lumbago[ICD9: 724.2] Diagnosis: Cervicalgia[ICD9: 723.1] Shahida Goldman MD, [facility] CPT-4: 56553 11/21/2013 ([id number]) 27321 EST. PATIENT, LEVEL III Diagnosis: DEPRESSIVE DISORDER NEC[ICD9: 311] Diagnosis: Paronychia[ICD9: 681.9] Melba Goldman MD, [facility] CPT-4: 64114 09/24/2013 ([id number]) 29388 EST. PATIENT, LEVEL III Diagnosis: Paronychia[ICD9: 681.9] Diagnosis: Cellulitis[ICD9: 682.9] Melba Goldman MD, [facility] CPT-4: 68805 09/19/2013 ([id number]) 79194 EST. PATIENT, LEVEL III Diagnosis: Conjunctivitis[ICD9: 372.30] Diagnosis: Thrush[ICD9: 112.0] Shahida Goldman MD, [facility] CPT-4: 58272 08/05/2013 ([id number]) 45911 EST. PATIENT, LEVEL III Diagnosis: ACUTE MAXILLARY SINUSITIS[ICD9: 461.0] Diagnosis: COUGH[ICD9: 786.2] Diagnosis: Insomnia[ICD9: 780.52] Diagnosis: ESOPHAGEAL REFLUX[ICD9: 530.81] Melba Goldman MD, [facility] CPT-4: 71282 07/10/2013 ([id number]) Miscellaneous no charge Diagnosis: ESSENTIAL HYPERTENSION[SNOMED: 69428652] Melba Goldman MD, [facility] CPT-4: 26675 05/13/2013 ([id number]) 23776 EST. PATIENT, LEVEL IV Diagnosis: ESSENTIAL HYPERTENSION[SNOMED: 67644313] Diagnosis: HYPOTHYROIDISM[ICD9: 244.9] Diagnosis: OSTEOARTH NOS-UNSPEC[ICD9: 715.90] Melba Goldman MD, [facility] CPT- 4: 58639 05/07/2013 ([id number]) 90823 EST. PATIENT, LEVEL IV Diagnosis: Osteoarthritis[ICD9: 715.90] Diagnosis: Knee pain, bilateral[ICD9: 719.46] Diagnosis: Hip pain[ICD9: 719.45] Melba Goldman MD, [facility] CPT-4: 69393 12/03/2012 ([id number]) 88636 EST. PATIENT, LEVEL III Diagnosis: Thrush[ICD9: 112.0] Melba Goldman MD, [facility] CPT-4: 46158 09/24/2012 ([id number]) 44745 EST. PATIENT, LEVEL IV Diagnosis: ESSENTIAL HYPERTENSION[SNOMED: 04182960] Diagnosis: Thrush[ICD9: 112.0] Diagnosis: Sleep apnea[ICD9: 780.57] Melba Goldman MD, [facility] CPT-4: 89389 09/10/2012 ([id number]) 15539 EST. PATIENT, LEVEL IV Diagnosis: Esophageal reflux[ICD9: 530.81] Diagnosis: Hypothyroid[ICD9: 244.9] Diagnosis: JOINT PAIN-MULT JOINTS[ICD9: 719.49] Diagnosis: ALLERGIC RHINITIS[ICD9: 477.9] Melba Goldman MD, [facility] CPT-4: 45864 08/08/2012 ([id number]) 90199 EST. PATIENT, LEVEL IV Diagnosis: Urinary frequency[ICD9: 788.41] Diagnosis: EDEMA[ICD9: 782.3] Diagnosis: HYPOTHYROIDISM[ICD9: 244.9] Diagnosis: Fatigue[ICD9: 780.79] Melba Goldman MD, [facility] CPT-4: 50193 02/15/2012 ([id number]) 52517 EST. PATIENT, LEVEL IV Diagnosis: Abdominal pain[ICD9: 789.00] Diagnosis: Fatigue[ICD9: 780.79] Diagnosis: Nausea[ICD9: 787.02] Melba Goldman MD, [facility] CPT-4: 66717 11/10/2011 15550 EST. PATIENT, LEVEL IV Diagnosis: ESSENTIAL HYPERTENSION[SNOMED: 58449372] Diagnosis: DIARRHEA[ICD9: 787.91] Diagnosis: DEPRESSIVE DISORDER NEC[ICD9: 311] Diagnosis: Irritable bowel disease[ICD9: 564.1] Melba Goldman MD, [facility] CPT- 4: 01506 08/01/2011 14813 EST. PATIENT, LEVEL III Diagnosis: ACUTE SINUSITIS[ICD9: 461.9] Diagnosis: Cough[ICD9: 786.2] Shahida Goldman MD, [facility] CPT-4: 29253 07/14/2011 97433 EST. PATIENT, LEVEL IV Diagnosis: VACCIN FOR INFLUENZA[ICD9: V04.81] Diagnosis: ESSENTIAL HYPERTENSION[SNOMED: 67414946] Diagnosis: GENERALIZED ANXIETY DISEASE[ICD9: 300.02] Diagnosis: SLEEP DISTURBANCES[ICD9: 780.50] [facility] CPT- 4: 54562 05/23/2011 31896 EST. PATIENT, LEVEL III Diagnosis: ACUTE SINUSITIS[ICD9: 461.9] Diagnosis: ALLERGIC RHINITIS[ICD9: 477.9] Diagnosis: Cough[ICD9: 786.2] [facility] CPT-4: 11240 05/03/2011 [id number] EST. PATIENT, LEVEL IV Diagnosis: ESSENTIAL HYPERTENSION[SNOMED: 05906385] Diagnosis: DEPRESSIVE DISORDER NEC[ICD9: 311] Diagnosis: Fatigue[ICD9: 780.79] [facility] CPT-4: 42604 04/25/2011 Plan of Care Planned Activity Notes [...] if the symptoms are not improving. 02/20/2017 Patient Education: Patient Medication Summary Completed [...] on use 02/06/2017 [facility]ment[phone] (15 min) Moderate 02/06/2017 Patient Education: Patient [...] this patient. 12/05/2016 Appointment: [phone] [facility] [facility] Procedure 12/05/2016 Patient Education: Patient Medication Summary Completed 12/05/2016 Visit Plan: Sinusitis - Pt has acute infection - pain in face, maxillary region, Pt informed to use decongestant, RX given to patient, sinus rinses also recommended. Call if symptoms do not show improvement.Dysuria-culture urine 11/28/2016 [phone] (15 min) Moderate 11/28/2016 Patient Education: [...] control. 11/07/2016 Appointment: [phone] [facility] - Annual Wellness Visit 11/07/2016 [...] spray. 08/15/2016 Appointment: Isabelle Orozco WPtel: [phone] [facility] [address] (15 min) Moderate 08/15/2016 Patient Education: Patient [...] use. 06/07/2016 Appointment: Shahida Manzo WPtel: [phone] [facility] [phone] (10 min) Simple 06/07/2016 Patient Education: Patient [...] today 03/14/2016 Appointment: Shahida Manzo WPtel: [phone] [facility] [phone] (15 min) Moderate 03/14/2016 Patient Education: Patient Medication Summary Completed 03/14/2016 Care Plan: COMPLETE CBC AUTOMATED LOINC : 27281-6 Pending 03/14/2016 Visit Plan: Cellulitis - The patient was instructed in appropriate wound care. The patient was instructed to use the antibiotic ointment as per RX. The patient is to call for any change in symptoms, increase in size of the lesion, increase in pain. 02/22/2016 Appointment: [phone] (15 min) Moderate 02/22/2016 Patient Education: [...] dai 11/24/2015 App[facility]ment: [phone] (30 min) Complex 11/24/2015 Patient Education: Patient Medication Summary Completed 11/24/2015 Patient Education: Obesity Completed 11/24/2015 Patient Education: Hypertension Completed 11/24/2015 Patient Education: .Cervicalgia Neck Pain Completed 11/24/2015 Care Plan: Referral Order SNOMED-CT : [id number] Ordered 11/24/2015 Visit Plan: Acute Migraine - [...] to monitor 06/11/2015 Appointment: [phone] [place] (15 min) Moderate 06/11/2015 Patient [...] OFFICE Sleep apnea-patient needs new CPAP-will contact [facility] Pt reports that she uses [...] OFFICE Sleep apnea-patient needs new CPAP-will contact [facility] patient Pt reports that she uses her [...] OFFICE Sleep apnea-patient needs new CPAP-will contact [facility] patient 03/19/2015 Appointment: (15 min) Moderate [...] Summary Completed 01/07/2015 Patient Education: [facility] - Saving AutoInj - 18+ - Dynamic [...] center pharmacy. 03/07/2014 Appointment: Melba Goldman WPtel: [facility] [place] rash 03/07/2014 Patient Education: Patient Medication [...] about change in blood pressure readings at home.Qpznjvu-penotbvpcan-fgumzopo duragesic patch-appt with Dr Ortiz for pain management 11/21/2013 Appointment: Shahida Manzo WPtel: [facility]5 [facility] [phone] Follow up 11/21/2013 Patient Education: Patient Medication Summary Completed 11/21/2013 Patient Education: Hypertension Completed 11/21/2013 Patient Education: .Cervicalgia Neck Pain Completed 11/21/2013 Appointment: Melba Goldman WPtel: [facility]5 [facility] Other 11/19/2013 Appointment: Melba Goldman WPtel: [address] [place], [place] [phone] Follow up 11/06/2013 Appointment: Melba Goldman WPtel: [facility]5 [facility] Lab Draw 10/15/2013 Patient Education: Patient [...] BEDTIME 09/24/2013 Appointment: Shahida Manzo WPtel: [facility] [address] Other 09/24/2013 Patient Education: Patient Medication Summary Completed 09/24/2013 Visit Plan: Paronychia/Cellulitis - continue with oral antibiotics as previously directed, return to clinic as previously directed, call for acute change in symptoms, worsening redness, warmth, discharge. 09/19/2013 Appointment: Melba Goldman WPtel: [facility] Other 09/19/2013 Patient Education: Patient Medication Summary Completed 09/19/2013 Visit Plan: Conjunctivitis - rx for eye drops/lube sent electronically to the patient's pharmacy. The patient has been instructed to cleanse affected eye with warm washcloth, then place medication into affected eye four times daily.Thrush- refill nystatin-call if symptoms do not resolve 08/05/2013 Appointment: Shahida Manzo WPtel: [facility]4 [facility] [phone] [facility] 08/05/2013 Patient Education: Patient Medication Summary Completed [...] show improvement. 06/03/2013 Appointment: Melba Goldman WPtel: [facility] Follow up 06/03/2013 Patient Education: Patient Medication Summary Completed 06/03/2013 Patient Education: Hypertension Completed 06/03/2013 Appointment: Melba Goldman WPtel: [facility] [place] Nurse Visit 05/13/2013 Patient Education: Patient [...] control. 05/07/2013 Appointment: Melba Goldman WPtel: [phone] [facility] Follow up 05/07/2013 Patient Education: Patient Medication Summary Completed 05/07/2013 Patient Education: Hypertension Completed 05/07/2013 Patient Education: Patient Medication Summary Completed 04/30/2013 Patient Education: Hypertension Completed 04/30/2013 Visit Plan: Arthritis- occasionally uncontrolled symptoms- recommend pt to take antiinflammatory as directed for pain control.Use tylenol for break through pain symptoms. 12/03/2012 Appointment: Melba Goldman WPtel: [phone] [facility] Follow up 12/03/2012 Patient Education: [...] resolve 09/24/2012 Appointment: Shahida Manzo WPtel: [phone] [facility] [phone] [place] [address] 09/24/2012 Patient Education: Patient Medication Summary Completed [...] diflucan 09/10/2012 Appointment: [phone] Follow up 09/10/2012 Patient Education: Patient Medication [...] symptoms. 08/08/2012 Appointment: [phone] Follow up 08/08/2012 Patient Education: Patient Medication Summary Completed 08/08/2012 Patient Education: Patient Medication Summary Completed 08/07/2012 Patient Education: Hypertension Completed 08/07/2012 Appointment: [phone] [place] Lab Draw 02/16/2012 Patient Education: Patient [...] labs. 02/15/2012 Appointment: Melba Goldman WPtel: [phone] [facility] Other 02/15/2012 Patient Education: Patient Medication Summary Completed 02/15/2012 Visit Plan: Abdominal pain - ultrasound tomorrow AMnothing to eat before the ultrasound from 11pm tonight bland diet.Nausea - worse with fatty foods, recommended low fat/bland diet, call if symptoms worsening. 11/10/2011 Appointment: Melba Goldman WPtel: [facility]3 [facility] Other 11/10/2011 Patient Education: Patient Medication Summary [...] the stools. 08/01/2011 Appointment: Melba Goldman WPtel: [phone] [facility] Other 08/01/2011 Patient Education: Patient Medication Summary Completed 08/01/2011 Patient Education: High Blood Pressure: Essential Hypertension Completed 08/01/2011 Visit Plan: Sinusitis - Pt has acute infection - pain in face, maxillary region, Pt informed to use decongestant, RX given to patient, sinus rinses also recommended. Call if symptoms do not show improvement. Cough-kishore zurita 07/14/2011 Appointment: Shahida Manzo WPtel: [address] [place] [address] Other 07/14/2011 Patient Education: Patient Medication Summary [...] the office. 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 I have reviewed the carlos pascal's chart, I have reviewed the patient's past [...] her symptoms. 04/25/2011 Appointment: [phone] Other 04/25/2011 Patient Education: Patient Medication [...] OFFICE Sleep apnea-patient needs new CPAP-will contact [facility] patient Pt reports that she uses her [...] OFFICE Sleep apnea-patient needs new CPAP-will contact [facility] patient Pt reports that she uses [...] OFFICE Sleep apnea-patient needs new CPAP-will contact [facility] patient . Skin tear of left [...] change in blood pressure readings at home. Mtrlsrh-soyqbyrpbez-enulvljl duragesic patch-appt with Dr Ortiz for pain [...]
--- OUTSIDE RECORDS SUMMARY | 2019-03-08 13:44 | XMS REPORT | CCD ---
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 Name Role Phone PP Unavailable CCM Unavailable Summary Purpose Interface Exchange Insurance Providers Payer name Policy type / Coverage type Covered green party ID Effective Begin Date Effective End Date [employer] Medicare Part B [id number] Unknown Family history Son Diagnosis Age At Onset Crohn's disease Unknown Brother Diagnosis Age At Onset Cardiovascular disease Unknown Mother Diagnosis Age At Onset Hypertension Unknown Father Diagnosis Age At Onset Cardiovascular disease Unknown Social History Social History Element Codes Description Effective Dates Marital status Unknown 04/22/2011 Number of children Unknown 3 1 son -Crohns 04/22/[address]: 172134026 Nonsmoker 04/22/2011 Allergies, Adverse Reactions, Alerts Allergies, Adverse Reactions, Alerts data not found Past Medical History Illness Codes Condition Status Onset Date Resolved Date Actinic keratosis ICD-9: 702.0 ICD-10: L57.0 Active 12/05/2016 Unknown Epigastric pain ICD-9: 536.8 ICD-10: R10.13 Active 02/06/2017 Unknown Generalized anxiety disorder ICD-9: 300.02 ICD-10: F41.1 Active 03/13/2016 Unknown Left upper quadrant pain ICD-9: 789.02 [...] ICD-9: 300.02 ICD-10: F41.1 03/13/2016 Active Left upper quadrant pain ICD-9: 789.02 [...] Fill Instructions Flagyl 500 mg tablet RxNorm: 623811 1 Tablet(s) PO TID 02/09/2017 02/15/2017 Active Trintellix 10 mg tablet RxNorm: 9541899 1 Tablet(s) PO QAM 02/06/2017 03/07/2017 Active Efudex 5 % topical cream RxNorm: 039871 1 Application TOP BID use on skin spot on nose 02/06/2017 02/15/2017 Active Bystolic 10 mg tablet RxNorm: 956477 TAKE ONE TABLET BY MOUTH DAILY 02/03/2017 06/02/2017 Active Imitrex 50 mg tablet RxNorm: 629405 TAKE ONE TABLET BY MOUTH EVERY 8 HOURS NEEDED MAY REPEAT IN 1 HOUR OF INITIAL DOSE. DISCONTINUE FIORICET 12/22/2016 02/19/2017 Active Nexium 40 mg capsule,delayed release RxNorm: 796977 TAKE ONE CAPSULE BY MOUTH EVERY DAY 12/21/2016 09/16/2017 Active Lexapro 20 mg tablet RxNorm: 991922 Tablet(s) TAKE ONE TABLET BY MOUTH DAILY 12/05/2016 02/05/2017 Inactive hydrocodone 10 mg-acetaminophen 325 mg tablet RxNorm: 053348 Tablet(s) PO TAKE ONE TO TWO TABLETS BY MOUTH EVERY 6 HOURS NEEDED FOR PAIN 11/28/2016 No Stop Date Active (Appended: Controlled substance eRx refill - RxReferenceNumber: [id number]) Augmentin 875 mg-125 mg tablet RxNorm: 353473 1 Tablet(s) PO BID 11/28/2016 12/04/2016 Inactive ceftriaxone 500 mg solution for injection RxNorm: 8301197 1 Milliliter(s) Inj 11/28/2016 11/28/2016 Inactive prednisone 20 mg tablet RxNorm: 836385 2 Tablet(s) PO daily 11/28/2016 12/02/2016 Inactive Synthroid 100 mcg tablet RxNorm: 777204 1 Tablet(s) PO daily 11/21/2016 05/19/2017 Active Brand name only! trazodone 50 mg tablet RxNorm: 866677 TAKE 1 AND 1/2 TABLETS EVERY NIGHT AT BEDTIME , MAY INCREASE TO 2 TABLETS AT BEDTIME NEEDED 11/21/2016 02/16/2017 Active trazodone 50 mg tablet RxNorm: 098748 Tablet(s) TAKE 1 AND 1/2 TABLETS EVERY NIGHT AT BEDTIME , MAY INCREASE TO 2 TABLETS AT BEDTIME NEEDED 11/21/2016 11/20/2016 Inactive Synthroid 100 mcg tablet RxNorm: 127055 1 Tablet(s) PO daily TAKE ONE TABLET BY MOUTH DAILY 11/08/2016 11/20/2016 Inactive ceftriaxone 500 mg solution for injection RxNorm: 5081620 Inj 11/07/2016 11/07/2016 Inactive Kenalog 40 mg/mL suspension for injection RxNorm: 6035132 Milliliter(s) Inj 11/07/2016 11/07/2016 Inactive Xanax 0.25 mg tablet RxNorm: 737201 1 Tablet(s) PO daily as needed 10/31/2016 12/29/2016 Inactive alprazolam 0.25 mg tablet RxNorm: 274728 1 Tablet(s) PO daily as needed 10/21/2016 12/18/2016 Inactive (Response to an electronic controlled substance refill request - RxReferenceNumber: [id number]) hydrochlorothiazide 25 mg tablet RxNorm: 051925 TAKE ONE TABLET BY MOUTH DAILY 10/11/2016 04/08/2017 Active Xanax 0.25 mg tablet RxNorm: 626871 1 Tablet(s) PO daily as needed 08/23/2016 10/19/2016 Inactive Flonase Allergy Relief 50 mcg/actuation nasal spray,suspension RxNorm: 4484623 1 [place] NASAL daily 08/15/2016 No Stop Date Active amoxicillin 500 mg capsule RxNorm: 365349 1 Capsule(s) PO TID 08/15/2016 08/24/2016 Inactive Bystolic 10 mg tablet RxNorm: 506884 TAKE ONE TABLET BY MOUTH DAILY 08/01/2016 12/28/2016 Inactive trazodone 50 mg tablet RxNorm: 286470 TAKE 1 AND 1/2 TABLETS EVERY NIGHT AT BEDTIME , MAY INCREASE TO 2 TABLETS AT BEDTIME NEEDED 07/25/2016 11/11/2016 Inactive alprazolam 0.25 mg tablet RxNorm: 517911 1 Tablet(s) PO daily as needed 07/25/2016 08/22/2016 Inactive (Response to an electronic controlled substance refill request - RxReferenceNumber: [id number]) Imitrex 50 mg tablet RxNorm: 017182 1 Tablet(s) PO Q8 as needed may repeat x1 dose in 1 hour of inital dose. 07/13/2016 No Stop Date Active Lexapro 20 mg tablet RxNorm: 959067 TAKE 1/2 TABLET BY MOUTH DAILY FOR 10 DAYS, THEN TAKE ONE TABLET BY MOUTH DAILY 06/27/2016 11/23/2016 Inactive Synthroid 100 mcg tablet RxNorm: 257821 TAKE ONE TABLET BY MOUTH DAILY 06/20/2016 11/07/2016 Inactive Augmentin 500 mg-125 mg tablet RxNorm: 306748 1 Tablet(s) PO TID 06/07/2016 06/13/2016 Inactive hydrocodone 10 mg-acetaminophen 325 mg tablet RxNorm: 972804 Tablet(s) PO TAKE ONE TO TWO TABLETS BY MOUTH EVERY 6 HOURS NEEDED FOR PAIN 06/07/2016 11/27/2016 Inactive (Appended: Controlled substance eRx refill - RxReferenceNumber: [id number]) hydrochlorothiazide 25 mg tablet RxNorm: 586194 TAKE ONE TABLET BY MOUTH DAILY 03/14/2016 09/09/2016 Inactive Edarbi 40 mg tablet RxNorm: 5342897 1 Tablet(s) PO daily 03/14/2016 06/06/2016 Inactive trazodone 50 mg tablet RxNorm: 841501 Tablet(s) TAKE 1 AND 1/2 TABLET AT BEDTIME. MAY INCREASE TO 2 TABLETS IF NECESSARY 02/25/2016 07/05/2016 Inactive Imitrex 50 mg tablet RxNorm: 262518 1 Tablet(s) PO Q8 as needed may repeat x1 dose in 1 hour of inital dose. 02/25/2016 07/12/2016 Inactive dc fioricet Xanax 0.25 mg tablet RxNorm: 151617 1 Tablet(s) PO daily as needed 02/24/2016 07/21/2016 Inactive mupirocin 2 % topical ointment RxNorm: 251675 1 TOP BID 02/22/2016 No Stop Date Active Bactrim DS 800 mg-160 mg tablet RxNorm: 266149 1 Tablet(s) PO BID 02/22/2016 03/02/2016 Inactive Fioricet 50 mg-325 mg-40 mg tablet RxNorm: 749128 Tablet(s) TAKE ONE TABLET BY MOUTH EVERY 4 HOURS NEEDED FOR headache 02/12/2016 02/24/2016 Inactive (Response to an electronic controlled substance refill request - RxReferenceNumber: [id number]) Fioricet 50 mg-325 mg-40 mg tablet RxNorm: 430757 Tablet(s) TAKE ONE TABLET BY MOUTH EVERY 4 HOURS NEEDED FOR headache 02/12/2016 02/11/2016 Inactive (Response to an electronic controlled substance refill request - RxReferenceNumber: [id number]) Nexium 40 mg capsule,delayed release RxNorm: 011054 TAKE ONE CAPSULE BY MOUTH EVERY DAY 02/01/2016 10/27/2016 Inactive Bystolic 10 mg tablet RxNorm: 929130 Tablet(s) TAKE ONE TABLET BY MOUTH DAILY 01/06/2016 07/03/2016 Inactive Xanax 0.25 mg tablet RxNorm: 457398 1 Tablet(s) PO daily as needed 12/28/2015 02/23/2016 Inactive Levaquin 500 mg tablet RxNorm: 715491 1 Tablet(s) PO daily take a probiotic daily 12/14/2015 02/11/2016 Inactive Levaquin 500 mg tablet RxNorm: 729172 1 Tablet(s) PO daily take a probiotic daily 12/14/2015 12/13/2015 Inactive Phenergan with Codeine Syrup RxNorm: 5-10 Milliliter(s) PO Q6 PRN 12/07/2015 No Stop Date Active prednisone 20 mg tablet RxNorm: 022319 1 Tablet(s) PO BID 12/07/2015 12/13/2015 Inactive Augmentin 875 mg-125 mg tablet RxNorm: 610647 1 Tablet(s) PO BID 12/07/2015 12/13/2015 Inactive ceftriaxone 500 mg solution for injection RxNorm: 6157679 Inj 12/07/2015 12/07/2015 Inactive alprazolam 0.25 mg tablet RxNorm: 700882 1 Tablet(s) PO daily as needed 11/27/2015 12/25/2015 Inactive (Response to an electronic controlled substance refill request - RxReferenceNumber: [id number]) trazodone 50 mg tablet RxNorm: 292844 TAKE 1 AND 1/2 TABLET AT BEDTIME FOR 2 WEEKS, MAY INCREASE TO 2 TABLETS IF NECESSARY AFTER THAT 11/26/2015 02/24/2016 Inactive ceftriaxone 500 mg solution for injection RxNorm: 6553619 Milliliter(s) Inj 11/24/2015 11/24/2015 Inactive prednisone 10 mg tablet RxNorm: 515429 3 Tablet(s) PO daily 11/24/2015 11/28/2015 Inactive cefdinir 300 mg capsule RxNorm: 283649 1 Capsule(s) PO BID 11/24/2015 11/30/2015 Inactive Kenalog 40 mg/mL suspension for injection RxNorm: 5012545 1 Milliliter(s) Inj 11/24/2015 11/24/2015 Inactive Lexapro 20 mg tablet RxNorm: 713048 TAKE 1/2 TABLET BY MOUTH DAILY FOR 10 DAYS, THEN TAKE ONE TABLET BY MOUTH DAILY 11/23/2015 05/20/2016 Inactive Norvasc 10 mg tablet RxNorm: 474051 Tablet(s) PO TAKE ONE TABLET BY MOUTH EVERY DAY 10/26/2015 02/22/2016 Inactive Lipitor 10 mg tablet RxNorm: 337363 Tablet(s) TAKE ONE TABLET BY MOUTH EVERY DAY 10/26/2015 11/06/2016 Inactive hydrochlorothiazide 25 mg tablet RxNorm: 477191 TAKE ONE TABLET BY MOUTH DAILY 10/20/2015 01/17/2016 Inactive alprazolam 0.25 mg tablet RxNorm: 817742 1 Tablet(s) PO daily as needed 08/27/2015 11/22/2015 Inactive (Response to an electronic controlled substance refill request - RxReferenceNumber: [id number]) promethazine 25 mg/mL injection solution RxNorm: 697213 Milliliter(s) Inj 08/27/2015 08/27/2015 Inactive ketorolac 60 mg/2 mL intramuscular solution RxNorm: 966074 Milliliter(s) IM 08/27/2015 08/27/2015 Inactive Lexapro 20 mg tablet RxNorm: 415423 TAKE 1/2 TABLET BY MOUTH DAILY FOR 10 DAYS, THEN TAKE ONE TABLET BY MOUTH DAILY 08/13/2015 11/10/2015 Inactive Flonase 50 mcg/actuation nasal spray,suspension RxNorm: 919008 PLACE 1 SPRAY IN EACH NOSTRIL DAILY 08/13/2015 02/08/2016 Inactive Augmentin 500 mg-125 mg tablet RxNorm: 726544 1 Tablet(s) PO TID 08/10/2015 08/16/2015 Inactive Kenalog 40 mg/mL suspension for injection RxNorm: 2626912 Milliliter(s) Inj 08/10/2015 08/10/2015 Inactive ceftriaxone 500 mg solution for injection RxNorm: 7587145 Inj 08/10/2015 08/10/2015 Inactive nystatin 100,000 unit/mL oral suspension RxNorm: 995233 4 Milliliter(s) PO QID 08/10/2015 08/16/2015 Inactive trazodone 50 mg tablet RxNorm: 835890 TAKE 1 AND 1/2 TABLET AT BEDTIME FOR 2 WEEKS, MAY INCREASE TO 2 TABLETS IF NECESSARY AFTER THAT 07/31/2015 11/25/2015 Inactive ceftriaxone 500 mg solution for injection RxNorm: 5689493 1 Milliliter(s) Inj 07/28/2015 07/28/2015 Inactive Bactrim DS 800 mg-160 mg tablet RxNorm: 069210 1 Tablet(s) PO BID 07/28/2015 08/06/2015 Inactive Bactroban 2 % topical ointment RxNorm: 415262 1 Application TOP BID 07/28/2015 08/06/2015 Inactive Diflucan 150 mg tablet RxNorm: 815267 1 Tablet(s) PO daily 06/11/2015 06/17/2015 Inactive clotrimazole 1 % topical cream RxNorm: 986538 1 Application TOP BID 06/11/2015 07/10/2015 Inactive Bystolic 10 mg tablet RxNorm: 684780 TAKE ONE TABLET BY MOUTH DAILY 06/08/2015 12/04/2015 Inactive alprazolam 0.25 mg tablet RxNorm: 980541 1 Tablet(s) PO daily as needed 06/01/2015 08/25/2015 Inactive (Response to an electronic controlled substance refill request - RxReferenceNumber: [id number]) Fioricet 50 mg-325 mg-40 mg tablet RxNorm: 642581 Tablet(s) TAKE ONE TABLET BY MOUTH EVERY 4 HOURS NEEDED FOR headache 05/28/2015 06/08/2015 Inactive (Response to an electronic controlled substance refill request - RxReferenceNumber: [id number]) trazodone 50 mg tablet RxNorm: 420388 TAKE 1 AND 1/2 TABLET AT BEDTIME FOR 2 WEEKS, MAY INCREASE TO 2 TABLETS IF NECESSARY AFTER THAT 05/25/2015 08/22/2015 Inactive trazodone 50 mg tablet RxNorm: 055789 TAKE 1 AND 1/2 TABLET AT BEDTIME FOR 2 WEEKS, MAY INCREASE TO 2 TABLETS IF NECESSARY AFTER THAT 05/25/2015 05/24/2015 Inactive Synthroid 100 mcg tablet RxNorm: 598050 TAKE ONE TABLET BY MOUTH DAILY 04/23/2015 01/17/2016 Inactive Lipitor 10 mg tablet RxNorm: 084513 TAKE ONE TABLET BY MOUTH EVERY DAY 04/23/2015 10/25/2015 Inactive Kenalog 40 mg/mL suspension for injection RxNorm: 6832768 Milliliter(s) Inj 03/19/2015 03/19/2015 Inactive Lexapro 20 mg tablet RxNorm: 280156 1 Tablet(s) PO daily 03/19/2015 07/16/2015 Inactive 1/2 tab daily x 10 days then 1 tab daily hydrocodone 10 mg-acetaminophen 325 mg tablet RxNorm: 678512 Tablet(s) PO TAKE ONE TO TWO TABLETS BY MOUTH EVERY 6 HOURS NEEDED FOR PAIN 03/19/2015 06/06/2016 Inactive (Appended: Controlled substance eRx refill - RxReferenceNumber: [id number]) Carafate 1 gram tablet RxNorm: 627037 1 Tablet(s) PO AC & HS 03/19/2015 06/16/2015 Inactive dissolve in water and take as a slurry hydrochlorothiazide 25 mg tablet RxNorm: 632553 1 Tablet(s) PO daily 03/12/2015 09/07/2015 Inactive Nexium 40 mg capsule,delayed release RxNorm: 478516 TAKE ONE CAPSULE BY MOUTH EVERY DAY 02/26/2015 12/22/2015 Inactive Cymbalta 60 mg capsule,delayed release RxNorm: 076918 TAKE ONE CAPSULE BY MOUTH TWICE A DAY 02/23/2015 03/18/2015 Inactive alprazolam 0.25 mg tablet RxNorm: 727672 1 Tablet(s) PO daily as needed 02/11/2015 05/10/2015 Inactive (Response to an electronic controlled substance refill request - RxReferenceNumber: [id number]) trazodone 50 mg tablet RxNorm: 126504 TAKE 1 AND 1/2 TABLET AT BEDTIME FOR 2 WEEKS, MAY INCREASE TO 2 TABLETS IF NECESSARY AFTER THAT 01/27/2015 05/24/2015 Inactive Augmentin 500 mg-125 mg tablet RxNorm: 847391 1 Tablet(s) PO TID 01/07/2015 01/13/2015 Inactive gentamicin 0.3 % eye drops RxNorm: 000660 3 Drop(s) OPH QID 01/07/2015 01/13/2015 Inactive [AttnRPh: Saving apply/adjudicate RxGRP:[id number] RxBIN:[id number] RxPCN: ID#:[id number]] scopolamine 1.5 mg transdermal 72 hour patch RxNorm: 562871 1 Patch TD q72 hours 01/07/2015 11/23/2015 Inactive Synthroid 100 mcg tablet RxNorm: 577533 TAKE ONE TABLET BY MOUTH ONCE A DAY 01/06/2015 04/22/2015 Inactive nystatin 100,000 unit/gram topical powder RxNorm: 676275 APPLY TOPICALLY TWO TIMES A DAY 12/18/2014 03/17/2015 Inactive alprazolam 0.25 mg tablet RxNorm: 654682 TAKE ONE TABLET BY MOUTH DAILY NEEDED 10/30/2014 11/28/2014 Inactive (Response to an electronic controlled substance refill request - RxReferenceNumber: [id number]) alprazolam 0.25 mg tablet RxNorm: 275106 Tablet(s) TAKE ONE TABLET BY MOUTH DAILY 10/30/2014 10/29/2014 Inactive (Response to an electronic controlled substance refill request - RxReferenceNumber: [id number]) Lipitor 10 mg tablet RxNorm: 797851 TAKE ONE TABLET BY MOUTH EVERY DAY 10/30/2014 02/26/2015 Inactive alprazolam 0.25 mg tablet RxNorm: 020579 TAKE ONE TABLET BY MOUTH DAILY 10/07/2014 10/29/2014 Inactive (Response to an electronic controlled substance refill request - RxReferenceNumber: [id number]) alprazolam 0.25 mg tablet RxNorm: 997303 TAKE ONE TABLET BY MOUTH DAILY 10/06/2014 10/07/2014 Inactive (Response to an electronic controlled substance refill request - RxReferenceNumber: [id number]) alprazolam 0.25 mg tablet RxNorm: 558950 Tablet(s) TAKE ONE TABLET BY MOUTH EVERY DAY NEEDED 09/30/2014 10/06/2014 Inactive (Response to an electronic controlled substance refill request - RxReferenceNumber: [id number]) Fioricet 50 mg-325 mg-40 mg tablet RxNorm: 457905 Tablet(s) TAKE ONE TABLET BY MOUTH EVERY 4 HOURS NEEDED FOR headache 09/29/2014 10/12/2014 Inactive (Response to an electronic controlled substance refill request - RxReferenceNumber: [id number]) Bystolic 10 mg tablet RxNorm: 868520 1 Tablet(s) PO daily TAKE ONE TABLET BY MOUTH EVERY DAY 09/29/2014 04/26/2015 Inactive Bystolic 5 mg tablet RxNorm: 501328 TAKE 1 AND 1/2 TABLETS ONCE DAILY 09/24/2014 09/23/2014 Inactive Bystolic 5 mg tablet RxNorm: 223777 Tablet(s) TAKE 1 AND 1/2 TABLETS ONCE DAILY 09/24/2014 09/18/2015 Inactive gentamicin 0.3 % eye drops RxNorm: 658047 3 Drop(s) OPH QID 09/23/2014 09/29/2014 Inactive trazodone 50 mg tablet RxNorm: 804687 TAKE 1 AND 1/2 TABLET AT BEDTIME FOR 2 WEEKS, MAY INCREASE TO 2 TABLETS IF NECESSARY AFTER THAT 09/22/2014 01/26/2015 Inactive Fioricet 50 mg-325 mg-40 mg tablet RxNorm: 798530 TAKE ONE TABLET BY MOUTH EVERY 4 HOURS NEEDED FOR PAIN 09/17/2014 09/28/2014 Inactive (Response to an electronic controlled substance refill request - RxReferenceNumber: [id number]) Duragesic 50 mcg/hr transdermal patch RxNorm: 834182 1 TD q72 hours 08/07/2014 01/06/2015 Inactive [SAVINGS FOR UNINSURED PATIENTS -- BIN:328182, PCN: ASPROD1, Group: [id number], ID# [id number], Process claim through [employer], for questions: . THIS IS NOT INSURANCE.] alprazolam 0.25 mg tablet RxNorm: 633251 TAKE ONE TABLET BY MOUTH EVERY DAY NEEDED 07/31/2014 08/29/2014 Inactive (Response to an electronic controlled substance refill request - RxReferenceNumber: [id number]) alprazolam 0.25 mg tablet RxNorm: 571897 1 Tablet(s) PO daily as needed TAKE ONE TABLET BY MOUTH EVERY DAY NEEDED 07/30/2014 08/01/2014 Inactive (Response to an electronic controlled substance refill request [id number] Diflucan 150 mg tablet RxNorm: 512911 1 Tablet(s) PO daily 06/25/2014 07/01/2014 Inactive [SAVINGS FOR UNINSURED PATIENTS -- BIN:393607, PCN: ASPROD1, Group: [id number], ID# [id number], Process claim through [employer], for questions: . THIS IS NOT INSURANCE.] Kenalog 40 mg/mL suspension for injection RxNorm: 3686690 Milliliter(s) Inj 06/23/2014 06/23/2014 Inactive [SAVINGS FOR UNINSURED PATIENTS -- BIN:330612, PCN: ASPROD1, Group: [id number], ID# [id number], Process claim through [employer], for questions: . THIS IS NOT INSURANCE.] ceftriaxone 500 mg solution for injection RxNorm: 413139 Inj 06/23/2014 06/23/2014 Inactive [SAVINGS FOR UNINSURED PATIENTS -- BIN:786222, PCN: ASPROD1, Group: [id number], ID# [id number], Process claim through [employer], for questions: . THIS IS NOT INSURANCE.] Levaquin 500 mg tablet RxNorm: 929287 1 Tablet(s) PO daily 06/23/2014 07/13/2014 Inactive [SAVINGS FOR UNINSURED PATIENTS -- BIN:160560, PCN: ASPROD1, Group: [id number], ID# [id number], Process claim through [employer], for questions: . THIS IS NOT INSURANCE.] Duragesic 50 mcg/hr transdermal patch RxNorm: 638510 1 TD q72 hours 06/05/2014 08/06/2014 Inactive [SAVINGS FOR UNINSURED PATIENTS -- BIN:889382, PCN: ASPROD1, Group: [id number], ID# [id number], Process claim through [employer], for questions: . THIS IS NOT INSURANCE.] alprazolam 0.25 mg tablet RxNorm: 875201 1 Tablet(s) PO daily as needed TAKE ONE TABLET BY MOUTH EVERY DAY NEEDED 06/02/2014 07/29/2014 Inactive (Response to an electronic controlled substance refill request - RxReferenceNumber: [id number]) nystatin 100,000 unit/gram topical powder RxNorm: 917773 APPLY TO AFFECTED AREA(S) TWO TIMES A DAY 05/01/2014 06/14/2014 Inactive hydrochlorothiazide 25 mg tablet RxNorm: 881924 TAKE ONE TABLET BY MOUTH EVERY DAY MUST CALL MD FOR APPOINTMENT 04/24/2014 10/20/2014 Inactive alprazolam 0.25 mg tablet RxNorm: 617133 Tablet(s) TAKE ONE TABLET BY MOUTH EVERY DAY NEEDED 04/16/2014 06/02/2014 Inactive (Response to an electronic controlled substance refill request - RxReferenceNumber: [id number]) alprazolam 0.25 mg tablet RxNorm: 375223 TAKE ONE TABLET BY MOUTH EVERY DAY NEEDED 04/16/2014 05/15/2014 Inactive (Response to an electronic controlled substance refill request - RxReferenceNumber: [id number]) alprazolam 0.25 mg tablet RxNorm: 622561 TAKE ONE TABLET BY MOUTH EVERY DAY NEEDED 04/16/2014 05/15/2014 Inactive (Response to an electronic controlled substance refill request - RxReferenceNumber: [id number]) alprazolam 0.25 mg tablet RxNorm: 119345 TAKE ONE TABLET BY MOUTH EVERY DAY NEEDED 04/14/2014 04/16/2014 Inactive (Response to an electronic controlled substance refill request - RxReferenceNumber: [id number]) Lipitor 10 mg tablet RxNorm: 470562 TAKE ONE TABLET BY MOUTH EVERY DAY 04/14/2014 09/10/2014 Inactive alprazolam 0.25 mg tablet RxNorm: 191014 TAKE ONE TABLET BY MOUTH EVERY DAY NEEDED 04/14/2014 04/14/2014 Inactive (Response to an electronic controlled substance refill request - RxReferenceNumber: [id number]) alprazolam 0.25 mg tablet RxNorm: 981378 TAKE ONE TABLET BY MOUTH EVERY DAY NEEDED 04/14/2014 04/15/2014 Inactive (Response to an electronic controlled substance refill request - RxReferenceNumber: [id number]) alprazolam 0.25 mg tablet RxNorm: 139905 TAKE ONE TABLET BY MOUTH EVERY DAY NEEDED 04/14/2014 04/14/2014 Inactive (Response to an electronic controlled substance refill request - RxReferenceNumber: [id number]) nystatin 100,000 unit/gram topical powder RxNorm: 835017 1 Application TOP BID 04/03/2014 07/01/2014 Inactive [SAVINGS FOR UNINSURED PATIENTS -- BIN:770975, PCN: ASPROD1, Group: [id number], ID# [id number], Process claim through [employer], for questions: . THIS IS NOT INSURANCE.] Keflex 500 mg capsule RxNorm: 444405 1 Capsule(s) PO QID 04/03/2014 04/09/2014 Inactive [SAVINGS FOR UNINSURED PATIENTS -- BIN:667834, PCN: ASPROD1, Group: [id number], ID# [id number], Process claim through [employer], for questions: . THIS IS NOT INSURANCE.] Synthroid 100 mcg tablet RxNorm: 295452 1 Tablet(s) PO daily TAKE ONE TABLET BY MOUTH EVERY DAY 04/01/2014 01/05/2015 Inactive [SAVINGS FOR UNINSURED PATIENTS -- BIN:243193, PCN: ASPROD1, Group: [id number], ID# [id number], Process claim through [employer], for questions: . THIS IS NOT INSURANCE.] Duragesic 50 mcg/hr transdermal patch RxNorm: 437911 1 TD q72 hours 03/24/2014 06/04/2014 Inactive [SAVINGS FOR UNINSURED PATIENTS -- BIN:555739, PCN: ASPROD1, Group: [id number], ID# [id number], Process claim through [employer], for questions: . THIS IS NOT INSURANCE.] trazodone 50 mg tablet RxNorm: 305162 TAKE 1 AND 1/2 TABLET AT BEDTIME FOR 2 WEEKS, MAY INCREASE TO 2 TABLETS IF NECESSARY AFTER THAT 03/18/2014 09/13/2014 Inactive nystatin 100,000 unit/gram topical powder RxNorm: 896181 1 Application TOP BID 03/07/2014 03/16/2014 Inactive [SAVINGS FOR UNINSURED PATIENTS -- BIN:208389, PCN: ASPROD1, Group: [id number], ID# [id number], Process claim through [employer], for questions: . THIS IS NOT INSURANCE.] permethrin 5 % topical cream RxNorm: 076535 1 Application TOP daily 03/07/2014 11/23/2015 Inactive apply head to toe-leave on overnight and wash off in the a.m. May repeat x 1 if needed Diflucan 150 mg tablet RxNorm: 720133 1 Tablet(s) PO daily 03/07/2014 03/09/2014 Inactive [SAVINGS FOR UNINSURED PATIENTS -- BIN:828686, PCN: ASPROD1, Group: [id number], ID# [id number], Process claim through [employer], for questions: . THIS IS NOT INSURANCE.] hydrochlorothiazide 25 mg tablet RxNorm: 478334 TAKE ONE TABLET BY MOUTH EVERY DAY MUST CALL MD FOR APPOINTMENT 03/06/2014 04/23/2014 Inactive Zithromax Z-Sergio 250 mg tablet RxNorm: 941845 Tablet(s) PO as directed 03/04/2014 11/23/2015 Inactive [SAVINGS FOR UNINSURED PATIENTS -- BIN:987227, PCN: ASPROD1, Group: [id number], ID# [id number], Process claim through [employer], for questions: . THIS IS NOT INSURANCE.] Flonase 50 mcg/actuation nasal spray,suspension RxNorm: 255351 1 [place] NASAL daily 03/04/2014 07/01/2014 Inactive [SAVINGS FOR UNINSURED PATIENTS -- BIN:943191, PCN: ASPROD1, Group: [id number], ID# [id number], Process claim through [employer], for questions: . THIS IS NOT INSURANCE.] alprazolam 0.25 mg tablet RxNorm: 139683 1 Tablet(s) PO PRN TAKE ONE TABLET BY MOUTH EVERY DAY NEEDED 02/25/2014 04/14/2014 Inactive (Appended: Controlled substance eRx refill - RxReferenceNumber: [id number]) alprazolam 0.25 mg tablet RxNorm: 967754 TAKE ONE TABLET BY MOUTH EVERY DAY NEEDED 02/21/2014 03/22/2014 Inactive (Response to an electronic controlled substance refill request - RxReferenceNumber: [id number]) alprazolam 0.25 mg tablet RxNorm: 507734 TAKE ONE TABLET BY MOUTH EVERY DAY NEEDED 02/21/2014 03/22/2014 Inactive (Response to an electronic controlled substance refill request - RxReferenceNumber: [id number]) alprazolam 0.25 mg tablet RxNorm: 218083 TAKE ONE TABLET BY MOUTH EVERY DAY NEEDED 02/18/2014 03/19/2014 Inactive (Response to an electronic controlled substance refill request - RxReferenceNumber: [id number]) Cymbalta 60 mg capsule,delayed release RxNorm: 305560 TAKE ONE CAPSULE BY MOUTH TWICE A DAY 02/18/2014 01/13/2015 Inactive Nexium 40 mg capsule,delayed release RxNorm: 479086 TAKE ONE CAPSULE BY MOUTH EVERY DAY 02/18/2014 01/13/2015 Inactive Bactrim DS 800 mg-160 mg tablet RxNorm: 841051 1 Tablet(s) PO BID 02/13/2014 02/19/2014 Inactive probiotic while one antibiotic Bactrim DS 800 mg-160 mg tablet RxNorm: 727446 1 Tablet(s) PO BID 02/13/2014 02/12/2014 Inactive hydrocodone 10 mg-acetaminophen 325 mg tablet RxNorm: 367916 Tablet(s) PO TAKE ONE TO TWO TABLETS BY MOUTH EVERY 6 HOURS NEEDED FOR PAIN 02/06/2014 03/18/2015 Inactive (Appended: Controlled substance eRx refill - RxReferenceNumber: [id number]) Abilify 2 mg tablet RxNorm: 670505 Tablet(s) PO TAKE ONE TABLET BY MOUTH EVERY NIGHT AT BEDTIME 02/03/2014 03/19/2015 Inactive Duragesic 50 mcg/hr transdermal patch RxNorm: 355409 1 TD q72 hours 01/14/2014 03/23/2014 Inactive alprazolam 0.25 mg tablet RxNorm: 612709 1 Tablet(s) PO QDAY PRN 01/14/2014 02/12/2014 Inactive alprazolam 0.25 mg tablet RxNorm: 977532 Tablet(s) PO TAKE ONE TABLET BY MOUTH EVERY DAY NEEDED 01/14/2014 02/24/2014 Inactive (Appended: Controlled substance eRx refill - RxReferenceNumber: [id number]) Lipitor 10 mg tablet RxNorm: 578320 Tablet(s) PO TAKE ONE TABLET BY MOUTH EVERY DAY 01/14/2014 04/13/2014 Inactive Synthroid 100 mcg tablet RxNorm: 951024 Tablet(s) PO TAKE ONE TABLET BY MOUTH EVERY DAY 2013 03/31/2014 Inactive Fioricet 50 mg-325 mg-40 mg tablet RxNorm: 517008 Tablet(s) PO TAKE ONE TABLET BY MOUTH EVERY 4 HOURS NEEDED FOR PAIN 11/27/2013 09/17/2014 Inactive Fioricet 50 mg-325 mg-40 mg tablet RxNorm: 337974 Tablet(s) PO TAKE ONE TABLET BY MOUTH EVERY 4 HOURS NEEDED FOR PAIN 11/25/2013 11/26/2013 Inactive Zithromax Z-Sergio 250 mg tablet RxNorm: 389761 Tablet(s) PO as directed 11/11/2013 01/13/2014 Inactive Bystolic 10 mg tablet RxNorm: 091211 Tablet(s) PO TAKE ONE TABLET BY MOUTH EVERY DAY 10/21/2013 09/28/2014 Inactive Abilify 2 mg tablet RxNorm: 035763 1 Tablet(s) PO QHS 09/25/2013 01/22/2014 Inactive Synthroid 100 mcg tablet RxNorm: 984538 Tablet(s) PO TAKE ONE TABLET BY MOUTH EVERY DAY 09/24/2013 12/25/2013 Inactive Abilify 2 mg tablet RxNorm: 584809 1 Tablet(s) PO QHS 09/24/2013 09/24/2013 Inactive Rocephin 500 mg solution for injection RxNorm: 922503 1ml Milliliter(s) Inj 09/24/2013 09/24/2013 Inactive Rocephin 500 mg solution for injection RxNorm: 697132 1 Milliliter(s) Inj 09/19/2013 09/19/2013 Inactive Bystolic 5 mg tablet RxNorm: 431692 1 1/2 Tablet(s) PO daily 09/17/2013 03/15/2014 Inactive 1 1/2 daily may have 90 day if cheaper Bystolic 5 mg tablet RxNorm: 327861 1 1/2 Tablet(s) PO daily 09/17/2013 09/16/2013 Inactive 1 1/2 daily Lipitor 10 mg tablet RxNorm: 384863 Tablet(s) PO TAKE ONE TABLET BY MOUTH EVERY DAY 09/12/2013 01/13/2014 Inactive hydrocodone 10 mg-acetaminophen 325 mg tablet RxNorm: 290862 Tablet(s) PO TAKE ONE TO TWO TABLETS BY MOUTH EVERY 6 HOURS NEEDED FOR PAIN 09/09/2013 No Stop Date Active (Appended: Controlled substance eRx refill - RxReferenceNumber: [id number]) hydrocodone 10 mg-acetaminophen 325 mg tablet RxNorm: 010426 1 Tablet(s) PO Q6 PRN 09/09/2013 02/06/2014 Inactive hydrocodone 10 mg-acetaminophen 325 mg tablet RxNorm: 745691 Tablet(s) PO TAKE ONE TO TWO TABLETS BY MOUTH EVERY 6 HOURS NEEDED FOR PAIN 09/06/2013 No Stop Date Active (Appended: Controlled substance eRx refill - RxReferenceNumber: [id number]) Norvasc 10 mg tablet RxNorm: 153432 Tablet(s) PO TAKE ONE TABLET BY MOUTH EVERY DAY 09/05/2013 10/25/2015 Inactive trazodone 50 mg tablet RxNorm: 145131 1 1/2 Tablet(s) PO QHS 09/03/2013 03/17/2014 Inactive 75q hs x 2 week may increase to 100mg if nec after that nystatin 100,000 unit/mL oral suspension RxNorm: 986302 6 Milliliter(s) PO QID 08/06/2013 08/15/2013 Inactive Flonase 50 mcg/actuation nasal spray,suspension RxNorm: 365611 2 [place] NASAL daily 08/06/2013 03/03/2014 Inactive nystatin 100,000 unit/mL oral suspension RxNorm: 791141 6 Unit(s) PO QID 08/05/2013 08/05/2013 Inactive Phenergan with Codeine Syrup RxNorm: 5 Milliliter(s) PO Q4 PRN 08/05/2013 12/02/2013 Inactive 8 ounces alprazolam 0.25 mg tablet RxNorm: 638948 1 Tablet(s) PO QDAY PRN 07/29/2013 01/14/2014 Inactive Diflucan 150 mg tablet RxNorm: 264550 1 Tablet(s) PO daily 07/24/2013 07/26/2013 Inactive hydrochlorothiazide 25 mg tablet RxNorm: 810886 Tablet(s) PO TAKE ONE TABLET BY MOUTH EVERY DAY MUST CALL MD FOR APPOINTMENT 07/19/2013 03/05/2014 Inactive Phenergan with Codeine Syrup RxNorm: 10 Milliliter(s) PO Q4 PRN 07/10/2013 08/04/2013 Inactive 8 ounces Rocephin 500 mg solution for injection RxNorm: 590280 1 Inj 07/10/2013 07/10/2013 Inactive cefdinir 300 mg capsule RxNorm: 396195 1 Capsule(s) PO BID 07/10/2013 07/16/2013 Inactive prednisone 10 mg tablet RxNorm: 905780 3 Tablet(s) PO daily 07/10/2013 07/14/2013 Inactive Carafate 100 mg/mL oral suspension RxNorm: 785771 10 Milliliter(s) PO Q6 PRN pt to take carafate 10mL every 6 hours as needed. 07/10/2013 08/05/2014 Inactive Kenalog 40 mg/mL suspension for injection RxNorm: 6011386 1 Milliliter(s) Inj 07/10/2013 07/10/2013 Inactive trazodone 50 mg tablet RxNorm: 498769 1 Tablet(s) PO QHS 07/10/2013 09/02/2013 Inactive sulfamethoxazole 800 mg-trimethoprim 160 mg tablet RxNorm: 660816 1 Tablet(s) PO BID 06/03/2013 06/12/2013 Inactive Synthroid 125 mcg tablet RxNorm: 038814 1 Tablet(s) PO daily 05/07/2013 09/23/2013 Inactive Bystolic 10 mg tablet RxNorm: 041086 1.5 Tablet(s) PO daily 05/07/2013 09/03/2013 Inactive Voltaren 1 % Topical Gel RxNorm: 825433 4 Gram(s) TOP QID apply 4 grams to knees, 2 grams to hands and ankles four times daily. 05/07/2013 09/03/2013 Inactive hydrocodone 10 mg-acetaminophen 325 mg tablet RxNorm: 277267 1 Tablet(s) PO Q6 PRN 04/23/2013 09/09/2013 Inactive Norvasc 10 mg tablet RxNorm: 433518 Tablet(s) PO TAKE ONE TABLET BY MOUTH EVERY DAY 04/23/2013 09/04/2013 Inactive alprazolam 0.25 mg tablet RxNorm: 771944 1 Tablet(s) PO QDAY PRN 03/25/2013 07/22/2013 Inactive Bystolic 10 mg tablet RxNorm: 773734 1 Tablet(s) PO daily TAKE ONE TABLET BY MOUTH EVERY DAY 03/25/2013 05/06/2013 Inactive zolpidem 10 mg tablet RxNorm: 014014 1 Tablet(s) PO HS PRN 03/25/2013 07/09/2013 Inactive gentamicin 0.3 % Eye Drops RxNorm: 767922 3 Drop(s) OPH QID three gtts to each eye QID x 7 days 03/11/2013 03/10/2013 Inactive gentamicin 0.3 % eye drops RxNorm: 397529 3 Drop(s) OPH QID three gtts to each eye QID x 7 days 03/11/2013 03/17/2013 Inactive Nexium 40 mg capsule,delayed release RxNorm: 274038 Capsule(s) PO TAKE ONE CAPSULE BY MOUTH EVERY DAY 02/15/2013 02/17/2014 Inactive Cymbalta 60 mg capsule,delayed release RxNorm: 751629 Capsule(s) PO TAKE ONE CAPSULE BY MOUTH TWICE A DAY 02/15/2013 02/17/2014 Inactive hydrocodone 10 mg-acetaminophen 325 mg tablet RxNorm: 1241411 1 Tablet(s) PO Q6 PRN 01/22/2013 04/22/2013 Inactive Lipitor 10 mg tablet RxNorm: 419866 Tablet(s) PO TAKE ONE TABLET BY MOUTH EVERY DAY 01/07/2013 09/11/2013 Inactive Cymbalta 60 mg capsule,delayed release RxNorm: 875867 Capsule(s) PO TAKE ONE CAPSULE BY MOUTH TWICE A DAY 01/02/2013 02/14/2013 Inactive Synthroid 100 mcg tablet RxNorm: 849537 1 Tablet(s) PO 12/03/2012 05/06/2013 Inactive Enablex 7.5 mg tablet,extended release RxNorm: 606434 1 Tablet(s) PO daily 11/28/2012 11/27/2012 Inactive Enablex 7.5 mg tablet,extended release RxNorm: 154660 1 Tablet(s) PO daily 11/28/2012 11/28/2012 Inactive scopolamine 1.5 mg 72 hr Transderm Patch RxNorm: 798876 1 Milligram(s) TD q72 hours 11/26/2012 05/06/2013 Inactive hydrochlorothiazide 25 mg tablet RxNorm: 883116 Tablet(s) PO TAKE ONE TABLET BY MOUTH EVERY DAY MUST CALL MD FOR APPOINTMENT 11/24/2012 07/18/2013 Inactive Cymbalta 60 mg capsule,delayed release RxNorm: 242313 Capsule(s) PO TAKE ONE CAPSULE BY MOUTH TWICE A DAY 10/26/2012 01/01/2013 Inactive Bystolic 10 mg tablet RxNorm: 042560 Tablet(s) PO TAKE ONE TABLET BY MOUTH EVERY DAY 10/12/2012 03/25/2013 Inactive zolpidem 10 mg tablet RxNorm: 308661 1 Tablet(s) PO HS PRN 10/02/2012 01/29/2013 Inactive alprazolam 0.25 mg tablet RxNorm: 848643 1 Tablet(s) PO QDAY PRN 10/02/2012 01/29/2013 Inactive Kenalog 40 mg/mL Susp for Injection RxNorm: 5981778 1 Milliliter(s) Inj 09/24/2012 09/24/2012 Inactive Diflucan 150 mg tablet RxNorm: 000288 1 Tablet(s) PO daily 09/24/2012 09/30/2012 Inactive acyclovir 400 mg tablet RxNorm: 684079 1 Tablet(s) PO QID 09/24/2012 10/08/2012 Inactive Cipro 500 mg tablet RxNorm: 274150 1 Tablet(s) PO BID 09/24/2012 09/30/2012 Inactive Tamiflu 75 mg capsule RxNorm: 672925 1 Capsule(s) PO BID 09/17/2012 09/16/2012 Inactive Tamiflu 75 mg capsule RxNorm: 829315 1 Capsule(s) PO BID 09/17/2012 09/16/2012 Inactive Tamiflu 75 mg capsule RxNorm: 100988 1 Capsule(s) PO BID please disregard order for #14 09/17/2012 09/21/2012 Inactive fluconazole 150 mg tablet RxNorm: 395301 1 Tablet(s) PO daily 09/10/2012 09/13/2012 Inactive ketoconazole 2 % Topical Cream RxNorm: 274735 Application TOP BID apply to affected area BID until gone 08/31/2012 No Stop Date Active Norvasc 10 mg tablet RxNorm: 533135 Tablet(s) PO TAKE ONE TABLET BY MOUTH EVERY DAY 08/29/2012 04/22/2013 Inactive Cipro 500 mg tablet RxNorm: 918798 1 Tablet(s) PO BID 08/17/2012 08/26/2012 Inactive Flagyl 500 mg tablet RxNorm: 002705 1 Tablet(s) PO TID 08/17/2012 08/23/2012 Inactive Cipro 500 mg tablet RxNorm: 553561 1 Tablet(s) PO BID 08/17/2012 08/16/2012 Inactive zolpidem 10 mg tablet RxNorm: 289088 1 Tablet(s) PO HS PRN 08/17/2012 09/15/2012 Inactive Flagyl 500 mg tablet RxNorm: 430749 1 Tablet(s) PO TID 08/17/2012 08/16/2012 Inactive alprazolam 0.25 mg tablet RxNorm: 532844 1 Tablet(s) PO QDAY PRN 08/17/2012 09/15/2012 Inactive Belle Allergy 180 mg tablet RxNorm: 073295 1 Tablet(s) PO daily 08/08/2012 02/03/2013 Inactive hydrochlorothiazide 25 mg tablet RxNorm: 895471 1/2 Tablet(s) PO daily 08/08/2012 11/05/2012 Inactive needs appt Carafate 1 gram tablet RxNorm: 455777 1 Tablet(s) PO QID mix with 10 cc water and dissolve into slurry 08/08/2012 08/21/2012 Inactive hydrocodone 10 mg-acetaminophen 325 mg tablet RxNorm: 6363237 1 Tablet(s) PO Q6 PRN 08/08/2012 01/21/2013 Inactive Synthroid 100 mcg tablet RxNorm: 814172 1 Tablet(s) PO 08/08/2012 12/02/2012 Inactive Cymbalta 60 mg capsule,delayed release RxNorm: 542367 Capsule(s) PO 07/23/2012 10/25/2012 Inactive TAKE ONE CAPSULE BY MOUTH TWICE A DAY Nexium 40 mg capsule,delayed release RxNorm: 839843 Capsule(s) PO 06/20/2012 02/14/2013 Inactive TAKE ONE CAPSULE BY MOUTH EVERY DAY Lipitor 10 mg tablet RxNorm: 456057 Tablet(s) PO 06/20/2012 01/06/2013 Inactive TAKE ONE TABLET BY MOUTH EVERY DAY hydrochlorothiazide 25 mg tablet RxNorm: 152770 1 Tablet(s) PO daily 06/19/2012 08/07/2012 Inactive needs appt alprazolam 0.25 mg tablet RxNorm: 329178 1 Tablet(s) PO QDAY PRN 06/05/2012 07/04/2012 Inactive zolpidem 10 mg tablet RxNorm: 412312 1 Tablet(s) PO HS PRN 06/05/2012 07/04/2012 Inactive zolpidem 10 mg tablet RxNorm: 188979 1 Tablet(s) PO HS PRN 04/16/2012 05/15/2012 Inactive alprazolam 0.25 mg tablet RxNorm: 740014 1 Tablet(s) PO QDAY PRN 04/16/2012 05/15/2012 Inactive Cymbalta 60 mg capsule,delayed release RxNorm: 865303 1 Capsule(s) PO BID 03/22/2012 07/19/2012 Inactive Fioricet 50 mg-325 mg-40 mg tablet RxNorm: 709437 1 Tablet(s) PO Q4 PRN 03/22/2012 11/24/2013 Inactive Bystolic 10 mg tablet RxNorm: 640967 Tablet(s) PO 03/22/2012 10/11/2012 Inactive TAKE ONE TABLET BY MOUTH EVERY DAY potassium chloride ER 10 mEq Tab RxNorm: 542320 1 Tablet(s) PO daily 02/24/2012 03/01/2012 Inactive Lasix 20 mg Tab RxNorm: 402662 1 Tablet(s) PO daily 02/22/2012 02/21/2012 Inactive KCL 10 meq RxNorm: 1 PO daily 02/22/2012 02/21/2012 Inactive potassium chloride ER 10 mEq Tab RxNorm: 355542 1 Tablet(s) PO daily 02/22/2012 02/21/2012 Inactive Lasix 20 mg Tab RxNorm: 328156 1 Tablet(s) PO daily 02/22/2012 02/28/2012 Inactive KCL 10 meq RxNorm: 1 PO daily 02/22/2012 02/22/2012 Inactive potassium chloride ER 10 mEq Tab RxNorm: 298800 1 Tablet(s) PO daily 02/22/2012 02/23/2012 Inactive Rocephin 500 mg Solution for Injection RxNorm: 350716 Inj 02/15/2012 02/15/2012 Inactive Nexium 40 mg capsule,delayed release RxNorm: 515972 1 Capsule(s) PO daily 02/15/2012 No Stop Date Active Bystolic 10 mg Tab RxNorm: 542940 1 Tablet(s) PO daily 02/15/2012 08/12/2012 Inactive alprazolam 0.25 mg tablet RxNorm: 493553 1 Tablet(s) PO QDAY PRN 01/31/2012 02/29/2012 Inactive zolpidem 10 mg tablet RxNorm: 894319 1 Tablet(s) PO HS PRN 01/31/2012 02/29/2012 Inactive alprazolam 0.25 mg Tab RxNorm: 038167 1 Tablet(s) PO QDAY PRN 12/16/2011 01/14/2012 Inactive zolpidem 10 mg Tab RxNorm: 525045 1 Tablet(s) PO HS PRN 12/16/2011 01/14/2012 Inactive Norvasc 10 mg tablet RxNorm: 991302 1 Tablet(s) PO daily 12/02/2011 02/21/2012 Inactive Lipitor 10 mg tablet RxNorm: 496839 1 Tablet(s) PO daily 11/16/2011 05/13/2012 Inactive zolpidem 10 mg Tab RxNorm: 689940 1 Tablet(s) PO HS PRN 10/26/2011 12/15/2011 Inactive alprazolam 0.25 mg Tab RxNorm: 909734 1 Tablet(s) PO QDAY PRN 10/26/2011 12/15/2011 Inactive hydrochlorothiazide 25 mg tablet RxNorm: 659529 1 Tablet(s) PO daily 09/05/2011 03/02/2012 Inactive Synthroid 75 mcg tablet RxNorm: 934785 1 Tablet(s) PO daily 08/01/2011 02/26/2012 Inactive Abilify 2 mg Tab RxNorm: 056856 1 Tablet(s) PO QHS 08/01/2011 09/10/2012 Inactive dicyclomine 10 mg Cap RxNorm: 817139 1 Capsule(s) PO TID 08/01/2011 10/29/2011 Inactive alprazolam 0.25 mg Tab RxNorm: 950509 1 Tablet(s) PO QDAY PRN 07/26/2011 10/25/2011 Inactive Fioricet 50 mg-325 mg-40 mg tablet RxNorm: 651397 1 Tablet(s) PO Q4 PRN 07/14/2011 03/21/2012 Inactive Rocephin 500 mg Solution for Injection RxNorm: 082920 1 Milliliter(s) Inj 07/14/2011 08/01/2011 Inactive Nexium 40 mg Capsule, delayed release RxNorm: 700193 1 Capsule(s) PO daily 05/23/2011 10/06/2011 Inactive Bystolic 10 mg tablet RxNorm: 850530 1 Tablet(s) PO daily 05/23/2011 11/18/2011 Inactive Bystolic 10 mg Tab RxNorm: 947638 1 Tablet(s) PO daily 05/23/2011 05/22/2011 Inactive alprazolam 0.25 mg Tab RxNorm: 019401 1 Tablet(s) PO QDAY PRN 05/23/2011 07/25/2011 Inactive Influenza Virus Vaccine 0.5 mL RxNorm: IM 05/23/2011 05/23/2011 Inactive zolpidem 10 mg Tab RxNorm: 660877 1 Tablet(s) PO HS PRN 05/23/2011 10/25/2011 Inactive Rocephin 500 mg Solution for Injection RxNorm: 671729 1 Milliliter(s) Inj 05/03/2011 07/14/2011 Inactive Kenalog 40 mg/mL Susp for Injection RxNorm: 5233960 1 Milliliter(s) Inj 05/03/2011 07/14/2011 Inactive Bactrim DS 800 mg-160 mg Tab RxNorm: 592340 1 Tablet(s) PO BID 05/03/2011 08/01/2011 Inactive Flonase 50 mcg/actuation nasal spray,suspension RxNorm: 1804612 1 [place] NASAL daily No Start Date Active 1 spray to each nostril daily aspirin 81 mg tablet RxNorm: 747128 1 Tablet(s) PO daily No Start Date Active baclofen 10 mg tablet RxNorm: 918023 1 Tablet(s) PO TID as needed muscle spasms No Start Date Active Fish Oil 1,000 mg Cap RxNorm: 1 Capsule(s) PO TID No Start Date Active Flonase 50 mcg/actuation nasal spray,suspension RxNorm: 6789576 2 [place] NASAL daily No Start Date 08/05/2013 Inactive Duragesic 50 mcg/hr transdermal patch RxNorm: 299527 1 TD q72 hours No Start Date 01/13/2014 Inactive Vesicare 5 mg tablet RxNorm: 225333 1 Tablet(s) PO daily No Start Date 01/06/2015 Inactive Celebrex 200 mg capsule RxNorm: 743235 1 Capsule(s) PO daily No Start Date 04/02/2014 Inactive zolpidem 10 mg Tab RxNorm: 502315 1 Tablet(s) PO HS PRN No Start Date 05/22/2011 Inactive Zyrtec 10 mg Tab RxNorm: 5622623 1 Tablet(s) PO daily No Start Date 08/08/2012 Inactive Nexium 40 mg Cap RxNorm: 344756 1 Capsule(s) PO daily No Start Date 05/22/2011 Inactive ketoconazole 2 % Topical Cream RxNorm: 075580 Application TOP BID apply to affected area BID until gone No Start Date 08/30/2012 Inactive Cymbalta 60 mg capsule,delayed release RxNorm: 770274 1 Capsule(s) PO BID No Start Date 03/21/2012 Inactive alprazolam 0.25 mg Tab RxNorm: 862447 1 Tablet(s) PO QDAY PRN No Start Date 05/22/2011 Inactive Toprol XL 100 mg 24 hr Tab RxNorm: 842144 1 Tablet(s) PO BID No Start Date 04/25/2011 Inactive Xanax 0.25 mg tablet RxNorm: 265896 1 Tablet(s) PO daily as needed No Start Date 12/27/2015 Inactive Bystolic 10 mg Tab RxNorm: 918851 1 Tablet(s) PO daily No Start Date 05/22/2011 Inactive Fioricet 50 mg-325 mg-40 mg Tab RxNorm: 935965 1 Tablet(s) PO Q4 PRN No Start Date 07/13/2011 Inactive albuterol sulfate HFA 90 mcg/Actuation Aerosol Inhaler RxNorm: 7442151 1 INH Q4 PRN No Start Date 01/06/2015 Inactive Imitrex 50 mg tablet RxNorm: 830474 1 Tablet(s) PO Q8 as needed may repeat x1 dose in 1 hour of inital dose. No Start Date 02/24/2016 Inactive dc fioricet Tessalon 200 mg Cap RxNorm: 994097 1 Capsule(s) PO Q4 PRN No Start Date 02/14/2012 Inactive Zithromax Z-Sergio 250 mg tablet RxNorm: 107556 Tablet(s) PO No Start Date 11/10/2013 Inactive hydrochlorothiazide 25 mg Tab RxNorm: 696395 1 Tablet(s) PO daily No Start Date 09/04/2011 Inactive Deplin 15 mg Tab RxNorm: 1 Tablet(s) PO daily No Start Date 08/01/2011 Inactive Brilinta 90 mg tablet RxNorm: 2733380 1 Tablet(s) PO BID No Start Date 11/23/2015 Inactive Synthroid 75 mcg Tab RxNorm: 907040 1 Tablet(s) PO daily No Start Date 07/31/2011 Inactive scopolamine 1.5 mg 72 hr Transderm Patch RxNorm: 805656 1 Milligram(s) TD q72 hours No Start Date 11/25/2012 Inactive hydrocodone-acetaminophen 10 mg-325 mg tablet RxNorm: 7872082 1 Tablet(s) PO Q6 PRN No Start Date 08/07/2012 Inactive Phenergan with Codeine Syrup RxNorm: 5-10 Milliliter(s) PO Q6 PRN No Start Date 02/14/2012 Inactive Norvasc 10 mg Tab RxNorm: 102076 1 Tablet(s) PO daily No Start Date 12/01/2011 Inactive Zithromax Z-Sergio 250 mg Tab RxNorm: 272963 Tablet(s) PO No Start Date 08/01/2011 Inactive Medication Administered Medication Codes Instructions Start Date Status ceftriaxone 500 mg solution for injection RxNorm: 2878851 1Milliliter 11/28/2016 No longer Active Kenalog 40 mg/mL suspension for injection RxNorm: 4136339 Milliliter 11/07/2016 No longer Active ceftriaxone 500 mg solution for injection RxNorm: 1108769 11/07/2016 No longer Active ceftriaxone 500 mg solution for injection RxNorm: 4342181 12/07/2015 No longer Active Kenalog 40 mg/mL suspension for injection RxNorm: 6874529 1Milliliter 11/24/2015 No longer Active ceftriaxone 500 mg solution for injection RxNorm: 8443970 Milliliter 11/24/2015 No longer Active promethazine 25 mg/mL injection solution RxNorm: 232119 Milliliter 08/27/2015 No longer Active ketorolac 60 mg/2 mL intramuscular solution RxNorm: 202551 Milliliter 08/27/2015 No longer Active Kenalog 40 mg/mL suspension for injection RxNorm: 8319683 Milliliter 08/10/2015 No longer Active ceftriaxone 500 mg solution for injection RxNorm: 8366049 08/10/2015 No longer Active ceftriaxone 500 mg solution for injection RxNorm: 6193531 1Milliliter 07/28/2015 No longer Active Kenalog 40 mg/mL suspension for injection RxNorm: 0904598 Milliliter 03/19/2015 No longer Active Kenalog 40 mg/mL suspension for injection RxNorm: 9502125 Milliliter 06/23/2014 No longer Active ceftriaxone 500 mg solution for injection RxNorm: 694205 06/23/2014 No longer Active Rocephin 500 mg solution for injection RxNorm: 751693 1mlMilliliter 09/24/2013 No longer Active Rocephin 500 mg solution for injection RxNorm: 007520 1Milliliter 09/19/2013 No longer Active Rocephin 500 mg solution for injection RxNorm: 967904 1 07/10/2013 No longer Active Kenalog 40 mg/mL suspension for injection RxNorm: 0037398 1Milliliter 07/10/2013 No longer Active Kenalog 40 mg/mL Susp for Injection RxNorm: 4256351 1Milliliter 09/24/2012 No longer Active Rocephin 500 mg Solution for Injection RxNorm: 512387 02/15/2012 No longer Active Influenza Virus Vaccine 0.5 mL RxNorm: 05/23/2011 No longer Active Immunizations Vaccine Codes Date Status Influenza CVX: 141 06/24/2013 completed Pneumococcal CVX: 33 06/24/2013 completed PPD Unknown 05/13/2013 completed Assessments Condition Codes Effective Dates Major depressive disorder, recurrent, moderate ICD-10: F33.1 ICD-9: 296.32 02/06/2017 Actinic keratosis ICD-10: L57.0 ICD-9: 702.0 02/06/2017 Epigastric pain ICD-10: R10.13 ICD-9: 536.8 02/06/2017 Generalized anxiety disorder ICD-10: F41.1 ICD-9: 300.02 02/06/2017 Left upper quadrant pain ICD-10: R10.12 ICD-9: 789.02 02/06/2017 Acute recurrent maxillary sinusitis ICD-10: J01.01 [...] Visit Reason For Visit Effective Dates Notes depression 02/06/2017 skin lesion 12/05/2016 sinusitis 11/28/2016 [...] 26.9 % 11/07/2016 Cbc With Differential Ord2 [place]% 6.1 % 11/07/2016 Cbc With Differential Ord2 [...] 2.48 K/ul 11/07/2016 Cbc With Differential Ord2 [place] ABS# 0.6 K/ul 11/07/2016 Cbc With Differential Ord2 Eos ABS# 0.3 K/ul 11/07/2016 Cbc With Differential Ord2 Baso ABS# 0.1 K/ul 11/07/2016 Comp Metabolic Uam623 NA 139 mEq/L 11/07/2016 Comp Metabolic Pgd179 K 3.8 mEq/L 11/07/2016 Comp Metabolic Umw308 CL 106 mEq/L 11/07/2016 Comp Metabolic Dcp807 CO2 25.0 mEq/L 11/07/2016 Comp Metabolic Tar311 ANION GAP 12 11/07/2016 Comp Metabolic Zha422 GLUCOSE 98 mg/dL 11/07/2016 Comp Metabolic Utf855 Creat 0.8 mg/dL 11/07/2016 Comp Metabolic Dby236 eGFR 71 ml/min/1.73m2 11/07/2016 Comp Metabolic Cqe932 BUN 36 mg/dL 11/07/2016 Comp Metabolic Niu164 B/C Ratio 42.9 Ratio 11/07/2016 Comp Metabolic Yfi120 CALCIUM 9.9 mg/dL 11/07/2016 Comp Metabolic Ymg776 ALK PHOS 57 U/L 11/07/2016 Comp Metabolic Yss011 AST(SGOT) 24 U/L 11/07/2016 Comp Metabolic Xhx350 ALT(SGPT) 28 U/L 11/07/2016 Comp Metabolic Keb918 BILI T 0.4 mg/dL 11/07/2016 Comp Metabolic Iwt548 ALBUMIN 4.2 g/dL 11/07/2016 Comp Metabolic Rpp810 TPRO 7.0 g/dL 11/07/2016 Comp Metabolic Elk138 GLOB 2.8 g/dL 11/07/2016 Comp Metabolic Gtr016 A/G Ratio 1.5 Ratio 11/07/2016 Comp Metabolic Txb809 Osmo 286 mOsmo 11/07/2016 Free T4 Xjb962 FREE T4 0.75 ng/dL 11/07/2016 Tsh Ord6 hTSH II 3.46 uIU/mL 11/07/2016 Comp Metabolic Vuj849 NA 138 mEq/L 05/10/2016 Comp Metabolic Qzk337 K 3.8 mEq/L 05/10/2016 Comp Metabolic Jsq189 CL 102 mEq/L 05/10/2016 Comp Metabolic Tgx159 CO2 29.0 mEq/L 05/10/2016 Comp Metabolic Svc402 ANION GAP 11 05/10/2016 Comp Metabolic Yzu018 GLUCOSE 107 mg/dL 05/10/2016 Comp Metabolic Nsd038 Creat 0.7 mg/dL 05/10/2016 Comp Metabolic Xpj325 eGFR 93 ml/min/1.73m2 05/10/2016 Comp Metabolic Psl641 BUN 18 mg/dL 05/10/2016 Comp Metabolic Rpw747 B/C Ratio 26.9 Ratio 05/10/2016 Comp Metabolic Eaw414 CALCIUM 9.8 mg/dL 05/10/2016 Comp Metabolic Lgd096 ALK PHOS 60 U/L 05/10/2016 Comp Metabolic Hgy501 AST(SGOT) 21 U/L 05/10/2016 Comp Metabolic Uqq477 ALT(SGPT) 23 U/L 05/10/2016 Comp Metabolic Xhe991 BILI T 0.5 mg/dL 05/10/2016 Comp Metabolic Fav716 ALBUMIN 4.1 g/dL 05/10/2016 Comp Metabolic Gpm409 TPRO 6.7 g/dL 05/10/2016 Comp Metabolic Wva355 GLOB 2.7 g/dL 05/10/2016 Comp Metabolic Ygk284 A/G Ratio 1.5 Ratio 05/10/2016 Comp Metabolic Ads273 Osmo 278 mOsmo 05/10/2016 Lipid Ord30 CHOL 169 mg/dL 05/10/2016 Lipid Ord30 HDL 50.0 mg/dl 05/10/2016 Lipid Ord30 TRIG 161 mg/dL 05/10/2016 Lipid Ord30 LDL 87 mg/dL 05/10/2016 Lipid Ord30 C/HDL 3.4 Ratio 05/10/2016 Comp Metabolic Otl991 NA 137 mEq/L 06/12/2015 Comp Metabolic Zur109 K 3.8 mEq/L 06/12/2015 Comp Metabolic Itb220 CL 104 mEq/L 06/12/2015 Comp Metabolic Yvg157 CO2 24.0 mEq/L 06/12/2015 Comp Metabolic Kgr197 ANION GAP 13 06/12/2015 Comp Metabolic Daa634 GLUCOSE 92 mg/dL 06/12/2015 Comp Metabolic Kor041 Creat 0.7 mg/dL 06/12/2015 Comp Metabolic Axv331 eGFR 87 ml/min/1.73m2 06/12/2015 Comp Metabolic Inx271 BUN 31 mg/dL 06/12/2015 Comp Metabolic Azt323 B/C Ratio 43.7 Ratio 06/12/2015 Comp Metabolic Inl320 CALCIUM 10.0 mg/dL 06/12/2015 Comp Metabolic Rbb607 ALK PHOS 58 U/L 06/12/2015 Comp Metabolic Zhg406 AST(SGOT) 32 U/L 06/12/2015 Comp Metabolic Cdj236 ALT(SGPT) 33 U/L 06/12/2015 Comp Metabolic Szl445 BILI T 0.5 mg/dL 06/12/2015 Comp Metabolic Ngy408 ALBUMIN 4.1 g/dL 06/12/2015 Comp Metabolic Mdq478 TPRO 6.6 g/dL 06/12/2015 Comp Metabolic Mcu105 GLOB 2.5 g/dL 06/12/2015 Comp Metabolic Gjj261 A/G Ratio 1.6 Ratio 06/12/2015 Comp Metabolic Sow545 Osmo 280 mOsmo 06/12/2015 Cbc With Differential [...] Differential Ord2 RDW 14.2 % 06/12/2015 CBC [id number] WBC 8.7 10e9/L 04/30/2013 CBC [id number] RBC 4.63 10e12/L 04/30/2013 CBC [id number] HGB 14.1 g/dL 04/30/2013 CBC [id number] HCT DET 42.2 % 04/30/2013 CBC [id number] MCV 91.1 fL 04/30/2013 CBC [id number] MCH 30.5 pg 04/30/2013 CBC [id number] MCHC 33.4 g/dL 04/30/2013 CBC [id number] PLT 248 10e9/L 04/30/2013 CBC [id number] MPV 12.1 fL 04/30/2013 CBC [id number] LARA % 59.0 % 04/30/2013 CBC [id number] LY % 27.6 % 04/30/2013 CBC [id number] MON % 8.0 % 04/30/2013 CBC [id number] EOS % 4.8 % 04/30/2013 CBC [id number] BASO % 0.6 % 04/30/2013 CBC [id number] RDW 13.3 % 04/30/2013 CBC [id number] ABS LARA 5.13 10e9/L 04/30/2013 CBC [id number] ABS LYMPH 2.40 10e9/L 04/30/2013 CBC [id number] ABS MONO 0.70 10e9/L 04/30/2013 CBC 2294067 ABS EOS 0.42 10e9/L 04/30/2013 CBC [id number] ABS BASO 0.05 10e9/L 04/30/2013 CBC 1057121 RDW-SD 43.1 fL 04/30/2013 TSH 7085710 TSH 4.339 uIU/ML 04/30/2013 A1C HPLC 6606594 A1C HPLC 16731-5 5.6 % 04/30/2013 FREE T4 0573689 FREE T4 0.84 NG/DL 04/30/2013 GFR CALC 3311096 GFR AA >60 ML/MIN 04/30/2013 GFR CALC 6855643 GFR NON-AA >60 ML/MIN 04/30/2013 CHEM 14 8911743 AST 22 U/L 04/30/2013 CHEM 14 2182053 ALT 22 IU/L 04/30/2013 CHEM 14 8619936 BUN 24 MG/DL 04/30/2013 CHEM 14 5073209 ALBUMIN 4.2 GM/DL 04/30/2013 CHEM 14 6959922 CHLORIDE 107 MMOL/L 04/30/2013 CHEM 14 8821636 BILI TOT 0.3 MG/DL 04/30/2013 CHEM 14 1801337 ALK PHOS 88 U/L 04/30/2013 CHEM 14 7124418 SODIUM 141 MMOL/L 04/30/2013 CHEM 14 5724007 CREATININE 0.60 MG/DL 04/30/2013 CHEM 14 6240105 CALCIUM 9.9 MG/DL 04/30/2013 CHEM 14 8820446 POTASSIUM 3.7 MMOL/L 04/30/2013 CHEM 14 8107343 PROT TOT 6.6 GM/DL 04/30/2013 CHEM 14 6437860 GLUCOSE 123 MG/DL 04/30/2013 CHEM 14 0523413 BICARB 25 MMOL/L 04/30/2013 CHEM 14 2300109 ANION GAP 9 MEQ/L 04/30/2013 LIPID GRP HDL TEST 46 MG/DL 04/30/2013 LIPID GRP TRIG 148 MG/DL 04/30/2013 LIPID GRP TEST LDL 75 MG/DL 04/30/2013 LIPID GRP CHOL 151 MG/DL 04/30/2013 LIPID GRP RCHOL/HDL 3.28 RATIO 04/30/2013 TSH 9502217 TSH 3.341 uIU/ML 11/29/2012 CBC 0329830 WBC 8.4 10e9/L 11/29/2012 CBC 6373274 RBC 4.77 10e12/L 11/29/2012 CBC 1650564 HGB 14.9 g/dL 11/29/2012 CBC 5886112 HCT DET 44.2 % 11/29/2012 CBC 2418190 MCV 92.7 fL 11/29/2012 CBC 9482853 MCH 31.2 pg 11/29/2012 CBC 2426937 MCHC 33.7 g/dL 11/29/2012 CBC 5804603 PLT 253 10e9/L 11/29/2012 CBC 2976716 MPV 11.8 fL 11/29/2012 CBC 2969056 LARA % 54.9 % 11/29/2012 CBC 7608175 LY % 29.0 % 11/29/2012 CBC 8609227 MON % 10.4 % 11/29/2012 CBC 0124412 EOS % 5.1 % 11/29/2012 CBC 2321338 BASO % 0.6 % 11/29/2012 CBC 7401520 RDW 13.8 % 11/29/2012 CBC 2470803 ABS LARA 4.61 10e9/L 11/29/2012 CBC 2923326 ABS LYMPH 2.44 10e9/L 11/29/2012 CBC 3908236 ABS MONO 0.87 10e9/L 11/29/2012 CBC 8134086 ABS EOS 0.43 10e9/L 11/29/2012 CBC 0936838 ABS BASO 0.05 10e9/L 11/29/2012 CBC 4912249 RDW-SD 45.9 fL 11/29/2012 CHEM 14 3643444 AST 25 U/L 11/29/2012 CHEM 14 8419800 ALT 26 IU/L 11/29/2012 CHEM 14 8545878 BUN 25 MG/DL 11/29/2012 CHEM 14 7783257 ALBUMIN 4.4 GM/DL 11/29/2012 CHEM 14 1492713 CHLORIDE 106 MMOL/L 11/29/2012 CHEM 14 0114109 BILI TOT 0.4 MG/DL 11/29/2012 CHEM 14 0966481 ALK PHOS 86 U/L 11/29/2012 CHEM 14 8918139 SODIUM 141 MMOL/L 11/29/2012 CHEM 14 7861345 CREATININE 0.80 MG/DL 11/29/2012 CHEM 14 7357678 CALCIUM 9.7 MG/DL 11/29/2012 CHEM 14 6161029 POTASSIUM 4.0 MMOL/L 11/29/2012 CHEM 14 6006829 PROT TOT 6.6 GM/DL 11/29/2012 CHEM 14 3690629 GLUCOSE 112 MG/DL 11/29/2012 CHEM 14 0503372 BICARB 29 MMOL/L 11/29/2012 CHEM 14 5015000 ANION GAP 6 MEQ/L 11/29/2012 A1C HPLC 5197434 A1C HPLC 59655-0 5.5 % 11/29/2012 LIPID GRP HDL TEST 54 MG/DL 11/29/2012 LIPID GRP TRIG 77 MG/DL 11/29/2012 LIPID GRP TEST LDL 78 MG/DL 11/29/2012 LIPID GRP CHOL 147 MG/DL 11/29/2012 LIPID GRP RCHOL/HDL 2.72 RATIO 11/29/2012 FREE T4 9726295 FREE T4 1.23 NG/DL 11/29/2012 GFR CALC 5352163 GFR AA >60 ML/MIN 11/29/2012 GFR CALC 2425800 GFR NON-AA >60 ML/MIN 11/29/2012 CHEM 14 9521428 AST 23 U/L 08/07/2012 CHEM 14 4550616 ALT 34 IU/L 08/07/2012 CHEM 14 7147829 BUN 26 MG/DL 08/07/2012 CHEM 14 1214419 ALBUMIN 4.4 GM/DL 08/07/2012 CHEM 14 1876498 CHLORIDE 105 MMOL/L 08/07/2012 CHEM 14 0658020 BILI TOT 0.5 MG/DL 08/07/2012 CHEM 14 3906762 ALK PHOS 79 U/L 08/07/2012 CHEM 14 0857037 SODIUM 140 MMOL/L 08/07/2012 CHEM 14 3917808 CREATININE 0.71 MG/DL 08/07/2012 CHEM 14 6872052 CALCIUM 10.4 MG/DL 08/07/2012 CHEM 14 6829537 POTASSIUM 3.8 MMOL/L 08/07/2012 CHEM 14 3600304 PROT TOT 6.8 GM/DL 08/07/2012 CHEM 14 2704432 GLUCOSE 104 MG/DL 08/07/2012 CHEM 14 6112108 BICARB 27 MMOL/L 08/07/2012 CHEM 14 6217822 ANION GAP 8 MEQ/L 08/07/2012 A1C HPLC 4015539 A1C HPLC 68239-6 5.4 % 08/07/2012 FREE T4 6181346 FREE T4 1.11 NG/DL 08/07/2012 LIPID GRP HDL TEST 50 MG/DL 08/07/2012 LIPID GRP TRIG 127 MG/DL 08/07/2012 LIPID GRP TEST LDL 93 MG/DL 08/07/2012 LIPID GRP CHOL 168 MG/DL 08/07/2012 LIPID GRP 4495709 RCHOL/HDL 3.36 RATIO 08/07/2012 CBC 9381113 WBC 8.7 10e9/L 08/07/2012 CBC 1582802 RBC 4.67 10e12/L 08/07/2012 CBC 3462313 HGB 14.4 g/dL 08/07/2012 CBC 8268443 HCT DET 42.8 % 08/07/2012 CBC 4798627 MCV 91.6 fL 08/07/2012 CBC 1465945 MCH 30.8 pg 08/07/2012 CBC 0089490 MCHC 33.6 g/dL 08/07/2012 CBC 2590998 PLT 271 10e9/L 08/07/2012 CBC 3390875 MPV 12.3 fL 08/07/2012 CBC 8694646 LARA % 50.6 % 08/07/2012 CBC 8725827 LY % 34.9 % 08/07/2012 CBC 5047601 MON % 9.1 % 08/07/2012 CBC 9273244 EOS % 5.1 % 08/07/2012 CBC 9412117 BASO % 0.3 % 08/07/2012 CBC 2409758 RDW 13.6 % 08/07/2012 CBC 8550568 ABS LARA 4.40 10e9/L 08/07/2012 CBC 8510866 ABS LYMPH 3.04 10e9/L 08/07/2012 CBC 6744055 ABS MONO 0.79 10e9/L 08/07/2012 CBC 7810576 ABS EOS 0.44 10e9/L 08/07/2012 CBC 0920326 ABS BASO 0.03 10e9/L 08/07/2012 CBC 5747085 RDW-SD 44.1 fL 08/07/2012 TSH 5050037 TSH 7.419 uIU/ML 08/07/2012 GFR CALC 0648326 GFR AA >60 ML/MIN 08/07/2012 GFR CALC 5721889 GFR NON-AA >60 ML/MIN 08/07/2012 A1C HPLC 6342505 A1C HPLC 70255-3 5.3 % 02/21/2012 TSH 7432292 TSH 0.832 uIU/ML 02/16/2012 FREE T4 3430841 FREE T4 1.04 NG/DL 02/16/2012 GFR CALC 9407687 GFR AA >60 ML/MIN 02/16/2012 GFR CALC 0794646 GFR NON-AA >60 ML/MIN 02/16/2012 BMP 4048663 GLUCOSE 112 MG/DL 02/16/2012 BMP 6869679 CREATININE 0.65 MG/DL 02/16/2012 BMP 4774670 BUN 17 MG/DL 02/16/2012 BMP 5185013 SODIUM 144 MMOL/L 02/16/2012 BMP 3319716 POTASSIUM 4.0 MMOL/L 02/16/2012 BMP 8031404 CHLORIDE 107 MMOL/L 02/16/2012 BMP 4798803 BICARB 29 MMOL/L 02/16/2012 BMP 1453959 ANION GAP 8 MEQ/L 02/16/2012 BMP 2158734 CALCIUM 9.5 MG/DL 02/16/2012 CBC 6614194 WBC 7.1 10e9/L 02/16/2012 CBC 8185948 RBC 4.47 10e12/L 02/16/2012 CBC 1937502 HGB 13.5 g/dL 02/16/2012 CBC 2161372 HCT DET 40.7 % 02/16/2012 CBC 7676910 MCV 91.1 fL 02/16/2012 CBC 1957659 MCH 30.2 pg 02/16/2012 CBC 5403784 MCHC 33.2 g/dL 02/16/2012 CBC 5356266 PLT 238 10e9/L 02/16/2012 CBC 7907325 MPV 11.4 fL 02/16/2012 CBC 7432223 LARA % 55.7 % 02/16/2012 CBC 9954115 LY % 29.6 % 02/16/2012 CBC 8237558 MON % 9.2 % 02/16/2012 CBC 0235249 EOS % 5.1 % 02/16/2012 CBC 2338528 BASO % 0.4 % 02/16/2012 CBC 1862046 RDW 13.0 % 02/16/2012 CBC 5627723 ABS LARA 3.95 10e9/L 02/16/2012 CBC 7943893 ABS LYMPH 2.10 10e9/L 02/16/2012 CBC 0367031 ABS MONO 0.65 10e9/L 02/16/2012 CBC 0579468 ABS EOS 0.36 10e9/L 02/16/2012 CBC 0992202 ABS BASO 0.03 10e9/L 02/16/2012 CBC 8962982 RDW-SD 42.4 fL 02/16/2012 URINALYSIS NONAUTO W/O SCOPE 36158 Specific [place] 1.015 DateTime(Free Text in Aprima) URINALYSIS NONAUTO W/O SCOPE 53764 PH 7 DateTime(Free Text in Aprima) URINALYSIS NONAUTO W/O SCOPE 87838 GLUCOSE neg DateTime(Free Text in Aprima) URINALYSIS NONAUTO W/O SCOPE 84184 Protein 1+ DateTime(Free Text in Aprima) URINALYSIS NONAUTO W/O SCOPE 67572 Blood neg DateTime(Free Text in Aprima) URINALYSIS NONAUTO W/O SCOPE 57575 Bilirubin neg DateTime(Free Text in Aprima) URINALYSIS NONAUTO W/O SCOPE 26840 Ketones neg DateTime(Free Text in Aprima) URINALYSIS NONAUTO W/O SCOPE 94347 Urobilinogen neg DateTime(Free Text in Aprima) URINALYSIS NONAUTO W/O SCOPE 64615 Nitrite postive DateTime(Free Text in Aprima) URINALYSIS NONAUTO W/O SCOPE 54051 Leukocytes 3+ DateTime(Free Text in Aprima) URINALYSIS NONAUTO W/O SCOPE 95813 Specific [place] 1.030 DateTime(Free Text in Aprima) URINALYSIS NONAUTO W/O SCOPE 62712 PH 6 DateTime(Free Text in Aprima) URINALYSIS NONAUTO W/O SCOPE 80668 GLUCOSE neg DateTime(Free Text in Aprima) URINALYSIS NONAUTO W/O SCOPE 09682 Protein neg DateTime(Free Text in Aprima) URINALYSIS NONAUTO W/O SCOPE 02082 Blood neg DateTime(Free Text in Aprima) URINALYSIS NONAUTO W/O SCOPE 91225 Bilirubin neg DateTime(Free Text in Aprima) URINALYSIS NONAUTO W/O SCOPE 43975 Ketones neg DateTime(Free Text in Aprima) URINALYSIS NONAUTO W/O SCOPE 56569 Urobilinogen neg DateTime(Free Text in Aprima) URINALYSIS NONAUTO W/O SCOPE 96249 Nitrite neg DateTime(Free Text in Aprima) URINALYSIS NONAUTO W/O SCOPE 21321 Leukocytes trace DateTime(Free Text in Aprima) URINALYSIS NONAUTO W/O SCOPE 98766 Specific [place] 1.005 DateTime(Free Text in Aprima) URINALYSIS NONAUTO W/O SCOPE 17578 PH 5 DateTime(Free Text in Aprima) URINALYSIS NONAUTO W/O SCOPE 83542 GLUCOSE neg DateTime(Free Text in Aprima) URINALYSIS NONAUTO W/O SCOPE 84297 Protein neg DateTime(Free Text in Aprima) URINALYSIS NONAUTO W/O SCOPE 33897 Blood neg DateTime(Free Text in Aprima) URINALYSIS NONAUTO W/O SCOPE 43210 Bilirubin neg DateTime(Free Text in Aprima) URINALYSIS NONAUTO W/O SCOPE 62653 Ketones neg DateTime(Free Text in Aprima) URINALYSIS NONAUTO W/O SCOPE 12474 Urobilinogen neg DateTime(Free Text in Aprima) URINALYSIS NONAUTO W/O SCOPE 29090 Nitrite neg DateTime(Free Text in Aprima) URINALYSIS NONAUTO W/O SCOPE 00455 Leukocytes neg DateTime(Free Text in Aprima) UA 75920 Specific [place] 1.030 DateTime(Free Text in Aprima) UA 78816 PH 5 DateTime(Free Text in Aprima) UA 09296 GLUCOSE neg DateTime(Free Text in Aprima) UA 85862 Protein trace DateTime(Free Text in Apr) UA 59203 Blood large DateTime(Free Text in Apr) UA 03103 Bilirubin neg DateTime(Free Text in Apr) UA 16548 Ketones neg DateTime(Free Text in Aprima) UA 23040 Urobilinogen neg DateTime(Free Text in Aprima) UA 21026 Nitrite neg DateTime(Free Text in Aprima) UA 77225 Leukocytes large DateTime(Free Text in ) Review of Systems System Result Effective Dates Constitutional No recent illness 02/06/2017 Constitutional fatigue [...] unsteadiness 09/24/2013 None Full Exam - General 1994 [...] Procedure Codes Date DESTRUCT PREMALG LESION CPT-4: 62125Rbjdovt 12/05/2016 DESTRUCT PREMALG LES 2-14 CPT-4: 71037Tuxsifi 12/05/2016 URINALYSIS NONAUTO W/O SCOPE CPT-4: 90050Wqdlddj 11/28/2016 ROCEPHIN, PER 250 MG CPT-4: I5873Eadkpvg 11/28/2016 PPPS, SUBSEQ VISIT CPT-4: N0802Qjtdftw 11/07/2016 THER/PROPH/DIAG INJ SC/IM CPT-4: 11068Xyfudoy 11/07/2016 TRIAMCINOLONE ACET INJ NOS CPT-4: E3147Aunrjti 11/07/2016 ROCEPHIN, PER 250 MG CPT-4: C5912Afkcutz 11/07/2016 THER/PROPH/DIAG INJ SC/IM CPT-4: 86000Dnjcfum 08/15/2016 TRIAMCINOLONE ACET INJ NOS CPT-4: F1339Ikjuizl 08/15/2016 ROCEPHIN, PER 250 MG CPT-4: D8144Gjqwvqc 08/15/2016 URINALYSIS NONAUTO W/O SCOPE CPT-4: 59488Ueqtjdv 05/05/2016 ROCEPHIN, PER 250 MG CPT-4: V7065Hcgreho 12/07/2015 TRIAMCINOLONE ACET INJ NOS CPT-4: I9357Vggaolx 11/24/2015 ROCEPHIN, PER 250 MG CPT-4: T7095Wytvjeg 11/24/2015 THER/PROPH/DIAG INJ SC/IM CPT-4: 79270Rorchhr 11/24/2015 THER/PROPH/DIAG INJ SC/IM CPT-4: 28531Lhbrsgu 08/27/2015 KETOROLAC TROMETHAMINE INJ CPT-4: D2393Kuacbng 08/27/2015 PROMETHAZINE HCL INJECTION CPT-4: P8743Adcobby 08/27/2015 THER/PROPH/DIAG INJ SC/IM CPT-4: 63530Wfcahld 08/10/2015 TRIAMCINOLONE ACET INJ NOS CPT-4: A5948Oajeayj 08/10/2015 ROCEPHIN, PER 250 MG CPT-4: U7304Emxrtpr 08/10/2015 C WOUN RTS (CULTURE OTHR SPECIMN AEROBIC) CPT-4: 71295Gxnfqtv 07/28/2015 THER/PROPH/DIAG INJ SC/IM CPT-4: 72869Ekhnrkm 03/19/2015 TRIAMCINOLONE ACET INJ NOS CPT-4: I6218Ccerwpf 03/19/2015 ROCEPHIN, PER 250 MG CPT-4: M9487Rieuhop 06/23/2014 TRIAMCINOLONE ACET INJ NOS CPT-4: Z1851Sfspqlg 06/23/2014 INJ TRIGGER POINT 1/2 MUSCL CPT-4: 03030Fptzrcd 06/05/2014 URINALYSIS NONAUTO W/O SCOPE CPT-4: 53372Knluize 02/11/2014 URINALYSIS NONAUTO W/O SCOPE CPT-4: 74111Lqpepzm 10/15/2013 ROCEPHIN, PER 250 MG CPT-4: D9351Izlvnki 09/24/2013 THER/PROPH/DIAG INJ SC/IM CPT-4: 50507Vgclwhh 09/19/2013 ROCEPHIN, PER 250 MG CPT-4: D0287Tfxbiah 09/19/2013 PRESCRIP TRANSMIT VIA ERX SY CPT-4: N1279Ktiteuy 08/05/2013 ROCEPHIN, PER 250 MG CPT-4: X8336Miyrvzx 07/10/2013 THER/PROPH/DIAG INJ SC/IM CPT-4: 37322Xrdaxxr 07/10/2013 TRIAMCINOLONE ACET INJ NOS CPT-4: J5884Tilhsmf 07/10/2013 PRESCRIP TRANSMIT VIA ERX SY CPT-4: M9293Jxomaey 07/10/2013 [id number] EST. PATIENT, LEVEL III CPT-4: 17945Wwgefzi 06/03/2013 PRESCRIP TRANSMIT VIA ERX SY CPT-4: H4562Ksczumu 06/03/2013 PRESCRIP TRANSMIT VIA ERX SY CPT-4: C9555Tztbctb 05/07/2013 ROUTINE VENIPUNCTURE CPT-4: 24636Kxsrhwm 04/30/2013 ROUTINE VENIPUNCTURE CPT-4: 09939Yczwdfi 11/29/2012 TRIAMCINOLONE ACET INJ NOS CPT-4: N5360Atlvvwo 09/24/2012 THER/PROPH/DIAG INJ SC/IM CPT-4: 64871Zpsfoxs 09/24/2012 URINALYSIS NONAUTO W/O SCOPE CPT-4: 94057Nkiqseu 09/24/2012 PRESCRIP TRANSMIT VIA ERX SY CPT-4: J0739Yjassql 09/24/2012 PRESCRIP TRANSMIT VIA ERX SY CPT-4: R2933Ckcdala 09/10/2012 PRESCRIP TRANSMIT VIA ERX SY CPT-4: W1535Jvgibrx 08/08/2012 ROUTINE VENIPUNCTURE CPT-4: 28286Crglrpf 08/07/2012 ROUTINE VENIPUNCTURE CPT-4: 39263Rgnecic 02/16/2012 URINALYSIS NONAUTO W/O SCOPE CPT-4: 62771Wyxakec 02/15/2012 ROCEPHIN, PER 250 MG CPT-4: A4558Bxlzxsi 02/15/2012 PRESCRIP TRANSMIT VIA ERX SY CPT-4: Z2649Dnwjhsc 02/15/2012 ROUTINE VENIPUNCTURE CPT-4: 61735Ibxwjpb 11/08/2011 ROCEPHIN, PER 250 MG CPT-4: W6058Qxoekrm 07/14/2011 THER/PROPH/DIAG INJ SC/IM CPT-4: 18232Dkmzlgs 07/14/2011 Influenza Virus Vaccine, Split Virus, >3 Yrs, IM CPT-4: 47845Jdsysav 05/23/2011 IMMUNIZATION ADMIN CPT-4: 33273Hxaueoi 05/23/2011 THER/PROPH/DIAG INJ SC/IM CPT-4: 52364Gfvujmi 05/03/2011 ROCEPHIN, PER 250 MG CPT-4: X8830Tjbnwsj 05/03/2011 TRIAMCINOLONE ACET INJ NOS CPT-4: F9361Oturnzc 05/03/2011 Vital Signs Date Vital 02/06/2017 Blood Pressure 1: 138/90 Code: 8480-6 BMI: 31.5 Code: 98491-2 Heart Rate 1: 61 bpm Height: 4'11" SpO2: 98% Weight: 156 lbs 12/05/2016 Blood Pressure 1: 122/72 Code: 8480-6 Heart Rate 1: 59 bpm Height: 4'11" SpO2: 98% Weight: 11/28/2016 Blood Pressure 1: 154/86 Code: 8480-6 BMI: 31.3 Code: 55903-1 Heart Rate 1: 64 bpm Height: 4'11" SpO2: 94% Temperature: 36.2 (C) / 97.2 (F) Weight: 155 lbs 11/07/2016 Blood Pressure 1: 128/64 Code: 8480-6 BMI: 31.5 Code: 70452-7 Heart Rate 1: 59 bpm Height: 4'11" SpO2: 97% Weight: 156 lbs 08/15/2016 Blood Pressure 1: 110/62 Code: 8480-6 BMI: 31.5 Code: 10890-5 Heart Rate 1: 76 bpm Height: 4'11" SpO2: 97% Weight: 156 lbs 06/07/2016 Blood Pressure 1: 120/80 Code: 8480-6 BMI: 32.9 Code: 15205-1 Heart Rate 1: 63 bpm Height: 4'11" SpO2: 93% Temperature: 36.5 (C) / 97.7 (F) Weight: 163 lbs 03/15/2016 Blood Pressure 1: 90/42 Code: 8480-6 Heart Rate 1: 65 bpm SpO2: 94% 03/14/2016 Blood Pressure 1: 188/110 Code: 8480-6 Heart Rate 1: 68 bpm SpO2: 96% 02/22/2016 Blood Pressure 1: 158/80 Code: 8480-6 BMI: 32.7 Code: 56909-6 Heart Rate 1: 71 bpm Height: 4'11" SpO2: 95% Weight: 162 lbs 12/07/2015 Blood Pressure 1: 140/88 Code: 8480-6 BMI: 32.9 Code: 79765-4 Heart Rate 1: 99 bpm Height: 4'11" SpO2: 94% Temperature: 35.9 (C) / 96.6 (F) Weight: 163 lbs 11/24/2015 Blood Pressure 1: 144/78 Code: 8480-6 BMI: 33.7 Code: 13970-0 Heart Rate 1: 60 bpm Height: 4'11" SpO2: 98% Temperature: 36.6 (C) / 97.9 (F) Weight: 167 lbs 08/27/2015 Blood Pressure 1: 164/82 Code: 8480-6 BMI: 32.3 Code: 33861-0 Heart Rate 1: 60 bpm Height: 4'11" SpO2: 93% Weight: 160 lbs 08/10/2015 Blood Pressure 1: 130/60 Code: 8480-6 BMI: 32.5 Code: 18821-4 Heart Rate 1: 64 bpm Height: 4'11" SpO2: 97% Weight: 161 lbs 07/28/2015 Blood Pressure 1: 124/68 Code: 8480-6 BMI: 32.5 Code: 27789-1 Heart Rate 1: 69 bpm Height: 4'11" SpO2: 97% Weight: 161 lbs 06/11/2015 Blood Pressure 1: 148/80 Code: 8480-6 BMI: 32.9 Code: 62548-0 Heart Rate 1: 70 bpm Height: 4'11" SpO2: 94% Weight: 163 lbs 03/19/2015 Blood Pressure 1: 150/102 Code: 8480-6 Blood Pressure 2: 152/92 Code: 8480-6 BMI: 32.5 Code: 90262-8 Heart Rate 1: 71 bpm Height: 4'11" SpO2: 96% Weight: 161 lbs 01/07/2015 Blood Pressure 1: 126/84 Code: 8480-6 Heart Rate 1: 80 bpm Height: 4'11" 09/23/2014 Blood Pressure 1: 112/72 Code: 8480-6 BMI: 33.9 Code: 27142-6 Heart Rate 1: 72 bpm Height: 4'11" Weight: 168 lbs 08/05/2014 Blood Pressure 1: 140/86 Code: 8480-6 BMI: 33.3 Code: 69561-7 Height: 4'11" Weight: 165 lbs 06/23/2014 Blood Pressure 1: 132/70 Code: 8480-6 BMI: 32.9 Code: 62228-8 Heart Rate 1: 58 bpm Height: 4'11" Temperature: 36.0 (C) / 96.8 (F) Weight: 163 lbs 06/05/2014 Blood Pressure 1: 121/85 Code: 8480-6 BMI: 34.3 Code: 46036-1 Height: 4'11" Weight: 170 lbs 04/03/2014 Blood Pressure 1: 128/80 Code: 8480-6 Heart Rate 1: 88 bpm Weight: 167 lbs 03/07/2014 Blood Pressure 1: 122/82 Code: 8480-6 BMI: 33.9 Code: 70348-7 Heart Rate 1: 68 bpm Height: 4'11" Weight: 168 lbs 11/21/2013 Blood Pressure 1: 100/58 Code: 8480-6 BMI: 33.7 Code: 28178-4 Heart Rate 1: 64 bpm Height: 4'11" Weight: 167 lbs 09/24/2013 Blood Pressure 1: 148/88 Code: 8480-6 Heart Rate 1: 68 bpm Weight: 09/19/2013 Blood Pressure 1: 120/80 Code: 8480-6 BMI: 33.9 Code: 38813-0 Heart Rate 1: 80 bpm Height: 4'11" Temperature: 36.9 (C) / 98.5 (F) Weight: 168 lbs 08/05/2013 Blood Pressure 1: 128/80 Code: 8480-6 BMI: 34.3 Code: 45974-4 Heart Rate 1: 64 bpm Height: 4'11" Temperature: 36.2 (C) / 97.2 (F) Weight: 170 lbs 07/10/2013 Blood Pressure 1: 120/84 Code: 8480-6 BMI: 36.0 Code: 12232-2 Heart Rate 1: 90 bpm Height: 4'11" SpO2: 97% Temperature: 36.8 (C) / 98.2 (F) Weight: 178 lbs 06/03/2013 Blood Pressure 1: 136/94 Code: 8480-6 BMI: 34.7 Code: 21833-9 Heart Rate 1: 68 bpm Height: 4'11" Temperature: 36.7 (C) / 98.0 (F) Weight: 172 lbs 05/13/2013 Blood Pressure 1: 132/90 Code: 8480-6 Heart Rate 1: 68 bpm 05/07/2013 Blood Pressure 1: 168/100 Code: 8480-6 BMI: 34.3 Code: 42542-0 Heart Rate 1: 76 bpm Height: 4'11" Weight: 170 lbs 12/03/2012 Blood Pressure 1: 142/78 Code: 8480-6 BMI: 33.5 Code: 43855-2 Heart Rate 1: 76 bpm Height: 4'11" Weight: 166 lbs 09/24/2012 Blood Pressure 1: 116/70 Code: 8480-6 Heart Rate 1: 68 bpm Respiratory Rate: 16 bpm Temperature: 36.9 (C) / 98.4 (F) Weight: 162 lbs 09/10/2012 Blood Pressure 1: 116/80 Code: 8480-6 BMI: 33.7 Code: 90363-5 Heart Rate 1: 76 bpm Height: 4'11" [...] 1: 149/85 Code: 8480-6 BMI: 32.9 Code: 17577-1 Heart Rate 1: 79 bpm Height: 4'11" Weight: 164 lbs 05/03/2011 Blood Pressure 1: 122/79 Code: 8480-6 BMI: 30.8 Code: 38271-5 Heart Rate 1: 72 bpm Height: 5'1" Weight: 163 lbs 04/25/2011 Blood Pressure 1: 137/84 Code: 8480-6 BMI: 31.0 Code: 56691-2 Heart Rate 1: 63 bpm Height: 5'1" Respiratory Rate: 20 bpm Weight: 164 lbs Functional Status No Functional Status data History of Present Illness Symptom Name Status Result Effective Date Notes hypertension Quality primary hypertension 02/06/2017 None hypertension [...] days ago 02/15/2012 while visiting mother in [place] had uti and was put on pyridum [...] surg in december. then took trip to [facility] to see mother and has had swelling [...] Quality chronic 08/01/2011 states went shopping on [place] over night without taking any of medications [...] data Encounters Encounter Performer Location Codes Date ([id number]) [id number] EST. PATIENT, LEVEL IV Diagnosis: Generalized anxiety disorder[ICD10: F41.1] Diagnosis: Major depressive disorder, recurrent, moderate[ICD10: F33.1] Diagnosis: Left upper quadrant pain[ICD10: R10.12] Diagnosis: Epigastric pain[ICD10: R10.13] Diagnosis: Actinic keratosis[ICD10: L57.0] Melba Goldman MD, [facility] CPT-4: 30773 02/06/2017 [id number]) 07475 EST. PATIENT, LEVEL III Diagnosis: Actinic keratosis[ICD10: L57.0] Diagnosis: Major depressive disorder, recurrent, moderate[ICD10: F33.1] Melba Goldman MD, [facility] CPT-4: 65712 12/05/2016 [id number]) 21223 EST. PATIENT, LEVEL III Diagnosis: Acute recurrent maxillary sinusitis[ICD10: J01.01] Diagnosis: Dysuria[ICD10: R30.0] Shahida Goldman MD, [facility] CPT-4: 40947 11/28/2016 84017 EST. PATIENT, LEVEL IV Diagnosis: Other acute sinusitis[ICD10: J01.80] Diagnosis: Acute laryngopharyngitis[ICD10: J06.0] Diagnosis: Other allergic rhinitis[ICD10: J30.89] Isabelle Goldman MD, [facility] CPT- 4: 79966 08/15/2016 ([id number]) 20506 EST. PATIENT, LEVEL III Diagnosis: Acute recurrent maxillary sinusitis[ICD10: J01.01] Diagnosis: Low back pain[ICD10: M54.5] Shahida Goldman MD, [facility] CPT-4: 13579 06/07/2016 ([id number]) Miscellaneous no charge Diagnosis: Essential (primary) hypertension[ICD10: I10] Shahida Goldman MD, [facility] CPT-4: 45958 03/15/2016 08726 EST. PATIENT, LEVEL IV Diagnosis: Essential (primary) hypertension[ICD10: I10] Diagnosis: Headache[ICD10: R51] Diagnosis: Generalized anxiety disorder[ICD10: F41.1] Shahida Goldman MD, [facility] CPT-4: 33077 03/14/2016 [id number] EST. PATIENT, LEVEL III Diagnosis: Laceration without foreign body, left lower leg, initial encounter[ICD10: S81.812A] Isabelle Goldman MD, [facility] CPT-4: 24488 02/22/2016 ([id number]) 26086 EST. PATIENT, LEVEL III Diagnosis: Acute recurrent maxillary sinusitis[ICD10: J01.01] Diagnosis: Cough[ICD10: R05] Diagnosis: Allergic rhinitis due to pollen[ICD10: J30.1] Shahida Goldman MD, [facility] CPT-4: 82761 12/07/2015 ([id number]) 78447 EST. PATIENT, LEVEL IV Diagnosis: Essential (primary) hypertension[ICD10: I10] Diagnosis: Acute recurrent maxillary sinusitis[ICD10: J01.01] Diagnosis: Generalized anxiety disorder[ICD10: F41.1] Diagnosis: Cervicalgia[ICD10: M54.2] Diagnosis: Generalized intra-abdominal and pelvic swelling, mass and lump[ICD10: R19.07] Melba Goldman MD, [facility] CPT-4: 78662 11/24/2015 [id number] EST. PATIENT, LEVEL III Diagnosis: Other migraine, intractable, without status migrainosus[ICD10: G43.819] Isabelle Goldman MD, [facility] CPT-4: 91514 08/27/2015 06510 EST. PATIENT, LEVEL III Diagnosis: Acute recurrent maxillary sinusitis[ICD10: J01.01] Diagnosis: Candidal stomatitis[ICD10: B37.0] Diagnosis: Acute laryngopharyngitis[ICD10: J06.0] Isabelle Goldman MD, [facility] CPT- 4: 49805 08/10/2015 75856 EST. PATIENT, LEVEL III Diagnosis: Superficial foreign body of left hand, initial encounter[ICD10: S60.552A] Melba Goldman MD, [facility] CPT-4: 32052 07/28/2015 ([id number]) 13410 EST. PATIENT, LEVEL III Diagnosis: Essential (primary) hypertension[ICD10: I10] Diagnosis: Tinea cruris[ICD10: B35.6] Diagnosis: Abnormal levels of other serum enzymes[ICD10: R74.8] Shahida Goldman MD, [facility] CPT-4: 72511 06/11/2015 ([id number]) 81757 EST. PATIENT, LEVEL IV Diagnosis: ESSENTIAL HYPERTENSION[ICD9: 401.9] Diagnosis: Hypothyroid[ICD9: 244.9] Diagnosis: ALLERGIC RHINITIS[ICD9: 477.9] Diagnosis: Anxiety[ICD9: 300.00] Diagnosis: Sleep apnea[ICD9: 780.57] Shahida Goldman MD, [facility] CPT-4: 52061 03/19/2015 ([id number]) 74165 EST. PATIENT, LEVEL III Diagnosis: ACUTE SINUSITIS[ICD9: 461.9] Celi Goldman MD, [facility] CPT-4: 54538 01/07/2015 ([id number]) 50173 EST. PATIENT, LEVEL III Diagnosis: Conjunctivitis[ICD9: 372.30] Shahida Goldman MD, [facility] CPT-4: 04921 09/23/2014 94079 EST. PATIENT, LEVEL II Diagnosis: Noninfected skin tear of leg[ICD9: 891.0] Shahida Goldman MD, [facility] CPT-4: 83601 08/05/2014 ([id number]) 61858 EST. PATIENT, LEVEL III Diagnosis: Chronic maxillary sinusitis[ICD9: 473.0] Shahida Goldman MD, [facility] CPT-4: 64328 06/23/2014 19383 EST. PATIENT, LEVEL II Diagnosis: Headache[ICD9: 784.0] Shahida Goldman MD, [facility] CPT-4: 40609 06/05/2014 ([id number]) 43572 EST. PATIENT, LEVEL III Diagnosis: Abrasion of right leg[ICD9: 916.0] Diagnosis: Headache[ICD9: 784.0] Diagnosis: ALLERGIC RHINITIS[ICD9: 477.9] Shahida Goldman MD, [facility] CPT-4: 17954 04/03/2014 91919 EST. PATIENT, LEVEL II Diagnosis: Tinea corporis[ICD9: 110.5] Diagnosis: Exposure to scabies[ICD9: V01.89] Shahida Goldman MD, [facility] CPT- 4: 13791 03/07/2014 ([id number]) 66149 EST. PATIENT, LEVEL III Diagnosis: ESSENTIAL HYPERTENSION[SNOMED: [id number]] Diagnosis: OSTEOARTH NOS-UNSPEC[ICD9: 715.90] Diagnosis: Lumbago[ICD9: 724.2] Diagnosis: Cervicalgia[ICD9: 723.1] Shahida Goldman MD, [facility] CPT-4: 14192 11/21/2013 ([id number]) 66455 EST. PATIENT, LEVEL III Diagnosis: DEPRESSIVE DISORDER NEC[ICD9: 311] Diagnosis: Paronychia[ICD9: 681.9] Melba Goldman MD, [facility] CPT-4: 21237 09/24/2013 ([id number]) 82706 EST. PATIENT, LEVEL III Diagnosis: Paronychia[ICD9: 681.9] Diagnosis: Cellulitis[ICD9: 682.9] Melba Goldman MD, [facility] CPT-4: 96211 09/19/2013 ([id number]) 08879 EST. PATIENT, LEVEL III Diagnosis: Conjunctivitis[ICD9: 372.30] Diagnosis: Thrush[ICD9: 112.0] Shahida Goldman MD, [facility] CPT-4: 68109 08/05/2013 ([id number]) 42906 EST. PATIENT, LEVEL III Diagnosis: ACUTE MAXILLARY SINUSITIS[ICD9: 461.0] Diagnosis: COUGH[ICD9: 786.2] Diagnosis: Insomnia[ICD9: 780.52] Diagnosis: ESOPHAGEAL REFLUX[ICD9: 530.81] Melba Goldman MD [facility] CPT-4: 20432 07/10/2013 ([id number]) Miscellaneous no charge Diagnosis: ESSENTIAL HYPERTENSION[SNOMED: [id number]] Melba Goldman MD [facility] CPT-4: 45871 05/13/2013 ([id number]) 94676 EST. PATIENT, LEVEL IV Diagnosis: ESSENTIAL HYPERTENSION[SNOMED: 83855327] Diagnosis: HYPOTHYROIDISM[ICD9: 244.9] Diagnosis: OSTEOARTH NOS-UNSPEC[ICD9: 715.90] Melba Goldman MD [facility] CPT- 4: 40618 05/07/2013 ([id number]) 90522 EST. PATIENT, LEVEL IV Diagnosis: Osteoarthritis[ICD9: 715.90] Diagnosis: Knee pain, bilateral[ICD9: 719.46] Diagnosis: Hip pain[ICD9: 719.45] Melba Goldman MD [facility] CPT-4: 14584 12/03/2012 ([id number]) 41672 EST. PATIENT, LEVEL III Diagnosis: Thrush[ICD9: 112.0] Melba Goldman MD [facility] CPT-4: 40974 09/24/2012 ([id number]) 65125 EST. PATIENT, LEVEL IV Diagnosis: ESSENTIAL HYPERTENSION[SNOMED: 33664663] Diagnosis: Thrush[ICD9: 112.0] Diagnosis: Sleep apnea[ICD9: 780.57] Melba Goldman MD [facility] CPT-4: 21741 09/10/2012 ([id number]) 22693 EST. PATIENT, LEVEL IV Diagnosis: Esophageal reflux[ICD9: 530.81] Diagnosis: Hypothyroid[ICD9: 244.9] Diagnosis: JOINT PAIN-MULT JOINTS[ICD9: 719.49] Diagnosis: ALLERGIC RHINITIS[ICD9: 477.9] Melba Goldman MD [facility] CPT-4: 38340 08/08/2012 ([id number]) 53045 EST. PATIENT, LEVEL IV Diagnosis: Urinary frequency[ICD9: 788.41] Diagnosis: EDEMA[ICD9: 782.3] Diagnosis: HYPOTHYROIDISM[ICD9: 244.9] Diagnosis: Fatigue[ICD9: 780.79] Melba Goldman MD, [facility] CPT-4: 36917 02/15/2012 ([id number]) 75643 EST. PATIENT, LEVEL IV Diagnosis: Abdominal pain[ICD9: 789.00] Diagnosis: Fatigue[ICD9: 780.79] Diagnosis: Nausea[ICD9: 787.02] Melba Goldman MD, [facility] CPT-4: 52175 11/10/2011 37143 EST. PATIENT, LEVEL IV Diagnosis: ESSENTIAL HYPERTENSION[SNOMED: 83284613] Diagnosis: DIARRHEA[ICD9: 787.91] Diagnosis: DEPRESSIVE DISORDER NEC[ICD9: 311] Diagnosis: Irritable bowel disease[ICD9: 564.1] Melba Goldman MD, [facility] CPT- 4: 49918 08/01/2011 97731 EST. PATIENT, LEVEL III Diagnosis: ACUTE SINUSITIS[ICD9: 461.9] Diagnosis: Cough[ICD9: 786.2] Shahida Goldman MD, [facility] CPT-4: 82681 07/14/2011 38066 EST. PATIENT, LEVEL IV Diagnosis: VACCIN FOR INFLUENZA[ICD9: V04.81] Diagnosis: ESSENTIAL HYPERTENSION[SNOMED: 71070663] Diagnosis: GENERALIZED ANXIETY DISEASE[ICD9: 300.02] Diagnosis: SLEEP DISTURBANCES[ICD9: 780.50] Shahida Goldman MD, [facility] CPT- 4: 32849 05/23/2011 36142 EST. PATIENT, LEVEL III Diagnosis: ACUTE SINUSITIS[ICD9: 461.9] Diagnosis: ALLERGIC RHINITIS[ICD9: 477.9] Diagnosis: Cough[ICD9: 786.2] Shahida Goldman MD, [facility] CPT-4: 95410 05/03/2011 95901 EST. PATIENT, LEVEL IV Diagnosis: ESSENTIAL HYPERTENSION[SNOMED: 76287247] Diagnosis: DEPRESSIVE DISORDER NEC[ICD9: 311] Diagnosis: Fatigue[ICD9: 780.79] Shahida Goldman MD, [facility] CPT-4: 34929 04/25/2011 Plan of Care Planned Activity Notes Codes Status Date Visit Plan: Abdominal pain - liquid diet [...] on use 02/06/2017 Appointment: Melba Goldman WPtel: [address] [place], [place] [address] (15 min) Moderate 02/06/2017 Patient Education: Patient [...] this patient. 12/05/2016 Appointment: Melba Goldman WPtel: [facility] Surgical Procedure 12/05/2016 Patient Education: Patient Medication Summary Completed 12/05/2016 Visit Plan: Sinusitis - Pt has acute infection - pain in face, maxillary region, Pt informed to use decongestant, RX given to patient, sinus rinses also recommended. Call if symptoms do not show improvement.Dysuria-culture urine 11/28/2016 Appointment: Shahida Manzo WPtel: [phone] (15 min) [...] of control. 11/07/2016 Appointment: Isabelle Orozco WPtel: [facility] [facility] - Annual Wellness Visit 11/07/2016 Patient [...] allergy spray. 08/15/2016 Appointment: [phone] (15 min) Moderate 08/15/2016 Patient Education: [...] pain use. 06/07/2016 Appointment: [phone] [phone] (10 min) Simple 06/07/2016 Patient Education: [...] office today 03/14/2016 Appointment: Shahida Manzo WPtel: [phone] [phone] (15 min) Moderate 03/14/2016 Patient Education: Patient Medication Summary Completed 03/14/2016 Care Plan: COMPLETE CBC AUTOMATED LOINC : 99628-8 Pending 03/14/2016 Visit Plan: Cellulitis - The patient was instructed in appropriate wound care. The patient was instructed to use the antibiotic ointment as per RX. The patient is to call for any change in symptoms, increase in size of the lesion, increase in pain. 02/22/2016 Appointment: Isabel[facility]rozco [phone] [facility] (15 min) Moderate 02/22/2016 Patient Education: [...] dr. dai 11/24/2015 App[facility]ment: [phone] (30 min) Complex 11/24/2015 Patient Education: Patient Medication Summary Completed 11/24/2015 Patient Education: Obesity Completed 11/24/2015 Patient Education: Hypertension Completed 11/24/2015 Patient Education: .Cervicalgia Neck Pain Completed 11/24/2015 Care Plan: Referral Order SNOMED-CT : [id number] Ordered 11/24/2015 Visit Plan: Acute Migraine - [...] monitor 06/11/2015 Appointment: Shahida Manzo WPtel: [phone] (15 min) Moderate 06/11/2015 Patient Education: Patient [...] OFFICE Sleep apnea-patient needs new CPAP-will contact [facility] patient Pt reports that she uses her [...] OFFICE Sleep apnea-patient needs new CPAP-will contact [facility] patient Pt reports that she uses her [...] OFFICE Sleep apnea-patient needs new CPAP-will contact [facility] 03/19/2015 Appointment: (15 min) Moderate [...] Patient Medication Summary Completed 01/07/2015 Patient Education: [facility] - Saving AutoInj - 18+ - Dynamic [...] Keep areas dryExposure to scabies-RX sent to [facility] pharmacy. 03/07/2014 Appointment: Melba Goldman WPtel: [facility] rash 03/07/2014 Patient Education: Patient Medication Summary [...] about change in blood pressure readings at home.Qubswom-olvxbiuztzm-cofentkd duragesic patch-appt with Dr Ortiz for pain management 11/21/2013 Appointment: Shahida Manzo WPtel: [phone] Follow up 11/21/2013 Patient Education: Patient Medication Summary Completed 11/21/2013 Patient Education: Hypertension Completed 11/21/2013 Patient Education: .Cervicalgia Neck Pain Completed 11/21/2013 Appointment: Melba Goldman WPtel: [facility] Other 11/19/2013 Appointment: Melba Goldman WPtel: [address] [place] [address] Follow up 11/06/2013 Appointment: Melba Goldman WPtel: [address] [place] [address] Lab Draw 10/15/2013 Patient Education: Patient Medication [...] AT BEDTIME 09/24/2013 Appointment: Shahida Manzo WPtel: [address] [place] [address] Other 09/24/2013 Patient Education: Patient Medication Summary Completed 09/24/2013 Visit Plan: Paronychia/Cellulitis - continue with oral antibiotics as previously directed, return to clinic as previously directed, call for acute change in symptoms, worsening redness, warmth, discharge. 09/19/2013 Appointment: Melba Goldman WPtel: [address] [place], [place] [phone] Other 09/19/2013 Patient Education: Patient Medication Summary Completed 09/19/2013 Visit Plan: Conjunctivitis - rx for eye drops/lube sent electronically to the patient's pharmacy. The patient has been instructed to cleanse affected eye with warm washcloth, then place medication into affected eye four times daily.Thrush- refill nystatin-call if symptoms do not resolve 08/05/2013 Appointment: Shahida [facility]zo [facility]el[facility] [phone] [phone] Sick 08/05/2013 Patient Education: Patient Medication [...] show improvement. 06/03/2013 Appointment: Melba Goldman WPtel: [phone] [facility] Follow up 06/03/2013 Patient Education: Patient Medication Summary Completed 06/03/2013 Patient Education: Hypertension Completed 06/03/2013 Appointment: Melba Goldman WPtel: [facility] [place] Nurse Visit 05/13/2013 Patient Education: Patient [...] control. 05/07/2013 Appointment: Melba Goldman WPtel: [phone] [facility] Follow up 05/07/2013 Patient Education: Patient Medication Summary Completed 05/07/2013 Patient Education: Hypertension Completed 05/07/2013 Patient Education: Patient Medication Summary Completed 04/30/2013 Patient Education: Hypertension Completed 04/30/2013 Visit Plan: Arthritis- occasionally uncontrolled symptoms- recommend pt to take antiinflammatory as directed for pain control.Use tylenol for break through pain symptoms. 12/03/2012 Appointment: Melba Goldman WPtel: [phone] [phone] Follow up 12/03/2012 Patient Education: Patient Medication [...] not resolve 09/24/2012 Appointment: Shahida Manzo [facility]el: [phone] [phone] [facility] 09/24/2012 Patient Education: Patient Medication Summary Completed [...] with diflucan 09/10/2012 Appointment: [facility] Goldman [facility]el[phone] [facility] Follow up 09/10/2012 Patient Education: Patient [...] pain symptoms. 08/08/2012 Appointment: Shahida Manzo [facility]Ptel: [phone] [phone] Follow up 08/08/2012 Patient Education: Patient Medication Summary Completed 08/08/2012 Patient Education: Patient Medication Summary Completed 08/07/2012 Patient Education: Hypertension Completed 08/07/2012 Appointment: Melba Goldman WPtel: [facility] Lab Draw 02/16/2012 Patient Education: Patient Medication [...] labs. 02/15/2012 Appointment: Melba Goldman WPtel: [facility] Other 02/15/2012 Patient Education: Patient Medication Summary Completed 02/15/2012 Visit Plan: Abdominal pain - ultrasound tomorrow AMnothing to eat before the ultrasound from 11pm tonight bland diet.Nausea - worse with fatty foods, recommended low fat/bland diet, call if symptoms worsening. 11/10/2011 Appointment: Melba Goldman WPtel: [facility] Other 11/10/2011 Patient Education: Patient Medication Summary [...] stools. 08/01/2011 Appointment: [facility]el: [phone] [facility] Other 08/01/2011 Patient Education: Patient Medication Summary Completed 08/01/2011 Patient Education: High Blood Pressure: Essential Hypertension Completed 08/01/2011 Visit Plan: Sinusitis - Pt has acute infection - pain in face, maxillary region, Pt informed to use decongestant, RX given to patient, sinus rinses also recommended. Call if symptoms do not show improvement. Cough-domsalsathish zurita 07/14/2011 Appointment: Shahida Manzo [facility]Ptel: [phone] [phone] [place] Other 07/14/2011 Patient Education: Patient [...] the office. 05/23/2011 Appointment: Shahida Manzo WPtel: [address] [place], [place] [phone] [place] [address] Other 05/23/2011 Patient Education: Patient Medication Summary [...] med 05/03/2011 Appointment: Shahida Manzo WPtel: [facility] [place] [address] Other 05/03/2011 Patient Education: Patient Medication Summary [...] her symptoms. 04/25/2011 Appointment: Shahida Manzo WPtel: [address] [place], [place] [phone] Other 04/25/2011 Patient Education: Patient Medication Summary Completed 04/25/2011 Referral: Matthew Dai Referral Appointment Requested Referral: Matthew Dai Information faxed to Dr. Dai. Their office to book. Patient informed. Completed Instructions Comment . Sinusitis - Pt has acute infection [...] OFFICE Sleep apnea-patient needs new CPAP-will contact [facility] Pt reports that she uses [...] OFFICE Sleep apnea-patient needs new CPAP-will contact [facility] Pt reports that she uses [...] OFFICE Sleep apnea-patient needs new CPAP-will contact [facility] . Skin tear of left [...] recommended pt to get new mask fitted lindsya. Thrush- treating with diflucan . Tinea-discussed natural and expected course of this diagnosis and to alert me if symtpoms do not follow expect course, or if any worse. RX sent to patient's pharmacy. Keep areas dry Exposure to scabies-RX sent to [facility] pharmacy. Edarbi 40mg daily Labs now EKG [...] change in blood pressure readings at home. Jczkskn-gawpaujlcxg-ygrpfuoe duragesic patch-appt with Dr Ortiz for pain [...]
--- OUTSIDE RECORDS SUMMARY | 2019-03-08 13:53 | XMS REPORT | CCD ---
Author Author [facility] Address [address] [place] [address] Phone Care Team Providers Care Home Designer Name Role Phone PP Unavailable CCM Unavailable Summary Purpose Interface Exchange Insurance Providers Payer name Policy type / Coverage type Covered democrat ID Effective Begin Date Effective End Date [employer] Medicare Part B [id number] Unknown Family history Son Diagnosis Age At Onset Crohn's disease Unknown Brother Diagnosis Age At Onset Cardiovascular disease Unknown Mother Diagnosis Age At Onset Hypertension Unknown Father Diagnosis Age At Onset Cardiovascular disease Unknown Social History Social History Element Codes Description Effective Dates Marital status Unknown 04/22/2011 Number of children Unknown 3 1 son -Crohns 04/22/[address]: 850794180 Nonsmoker 04/22/2011 Allergies, Adverse Reactions, Alerts Allergies, [...] Start Date Stop Date Status Fill Instructions Trintellix 10 mg tablet RxNorm: 0499897 1 Tablet(s) PO QAM 02/06/2017 03/07/2017 Active Efudex 5 % topical cream RxNorm: 880480 1 Application TOP BID use on skin spot on nose 02/06/2017 02/15/2017 Active Bystolic 10 mg tablet RxNorm: 746663 TAKE ONE TABLET BY MOUTH DAILY 02/03/2017 06/02/2017 Active Imitrex 50 mg tablet RxNorm: 388034 TAKE ONE TABLET BY MOUTH EVERY 8 HOURS NEEDED MAY REPEAT IN 1 HOUR OF INITIAL DOSE. DISCONTINUE FIORICET 12/22/2016 02/19/2017 Active Nexium 40 mg capsule,delayed release RxNorm: 259061 TAKE ONE CAPSULE BY MOUTH EVERY DAY 12/21/2016 09/16/2017 Active Lexapro 20 mg tablet RxNorm: 815938 Tablet(s) TAKE ONE TABLET BY MOUTH DAILY 12/05/2016 02/05/2017 Inactive hydrocodone 10 mg-acetaminophen 325 mg tablet RxNorm: 609655 Tablet(s) PO TAKE ONE TO TWO TABLETS BY MOUTH EVERY 6 HOURS NEEDED FOR PAIN 11/28/2016 No Stop Date Active (Appended: Controlled substance eRx refill - RxReferenceNumber: [id number]) Augmentin 875 mg-125 mg tablet RxNorm: 894909 1 Tablet(s) PO BID 11/28/2016 12/04/2016 Inactive ceftriaxone 500 mg solution for injection RxNorm: 4281269 1 Milliliter(s) Inj 11/28/2016 11/28/2016 Inactive prednisone 20 mg tablet RxNorm: 675255 2 Tablet(s) PO daily 11/28/2016 12/02/2016 Inactive Synthroid 100 mcg tablet RxNorm: 304322 1 Tablet(s) PO daily 11/21/2016 05/19/2017 Active Brand name only! trazodone 50 mg tablet RxNorm: 600997 TAKE 1 AND 1/2 TABLETS EVERY NIGHT AT BEDTIME , MAY INCREASE TO 2 TABLETS AT BEDTIME NEEDED 11/21/2016 02/16/2017 Active trazodone 50 mg tablet RxNorm: 973619 Tablet(s) TAKE 1 AND 1/2 TABLETS EVERY NIGHT AT BEDTIME , MAY INCREASE TO 2 TABLETS AT BEDTIME NEEDED 11/21/2016 11/20/2016 Inactive Synthroid 100 mcg tablet RxNorm: 052744 1 Tablet(s) PO daily TAKE ONE TABLET BY MOUTH DAILY 11/08/2016 11/20/2016 Inactive ceftriaxone 500 mg solution for injection RxNorm: 6165948 Inj 11/07/2016 11/07/2016 Inactive Kenalog 40 mg/mL suspension for injection RxNorm: 2771842 Milliliter(s) Inj 11/07/2016 11/07/2016 Inactive Xanax 0.25 mg tablet RxNorm: 457054 1 Tablet(s) PO daily as needed 10/31/2016 12/29/2016 Inactive alprazolam 0.25 mg tablet RxNorm: 054765 1 Tablet(s) PO daily as needed 10/21/2016 12/18/2016 Inactive (Response to an electronic controlled substance refill request - RxReferenceNumber: [id number]) hydrochlorothiazide 25 mg tablet RxNorm: 901129 TAKE ONE TABLET BY MOUTH DAILY 10/11/2016 04/08/2017 Active Xanax 0.25 mg tablet RxNorm: 310282 1 Tablet(s) PO daily as needed 08/23/2016 10/19/2016 Inactive Flonase Allergy Relief 50 mcg/actuation nasal spray,suspension RxNorm: 6812795 1 [place] NASAL daily 08/15/2016 No Stop Date Active amoxicillin 500 mg capsule RxNorm: 941574 1 Capsule(s) PO TID 08/15/2016 08/24/2016 Inactive Bystolic 10 mg tablet RxNorm: 593153 TAKE ONE TABLET BY MOUTH DAILY 08/01/2016 12/28/2016 Inactive trazodone 50 mg tablet RxNorm: 173507 TAKE 1 AND 1/2 TABLETS EVERY NIGHT AT BEDTIME , MAY INCREASE TO 2 TABLETS AT BEDTIME NEEDED 07/25/2016 11/11/2016 Inactive alprazolam 0.25 mg tablet RxNorm: 029763 1 Tablet(s) PO daily as needed 07/25/2016 08/22/2016 Inactive (Response to an electronic controlled substance refill request - RxReferenceNumber: [id number]) Imitrex 50 mg tablet RxNorm: 353449 1 Tablet(s) PO Q8 as needed may repeat x1 dose in 1 hour of inital dose. 07/13/2016 No Stop Date Active Lexapro 20 mg tablet RxNorm: 107800 TAKE 1/2 TABLET BY MOUTH DAILY FOR 10 DAYS, THEN TAKE ONE TABLET BY MOUTH DAILY 06/27/2016 11/23/2016 Inactive Synthroid 100 mcg tablet RxNorm: 360810 TAKE ONE TABLET BY MOUTH DAILY 06/20/2016 11/07/2016 Inactive Augmentin 500 mg-125 mg tablet RxNorm: 204885 1 Tablet(s) PO TID 06/07/2016 06/13/2016 Inactive hydrocodone 10 mg-acetaminophen 325 mg tablet RxNorm: 113371 Tablet(s) PO TAKE ONE TO TWO TABLETS BY MOUTH EVERY 6 HOURS NEEDED FOR PAIN 06/07/2016 11/27/2016 Inactive (Appended: Controlled substance eRx refill - RxReferenceNumber: [id number]) hydrochlorothiazide 25 mg tablet RxNorm: 047091 TAKE ONE TABLET BY MOUTH DAILY 03/14/2016 09/09/2016 Inactive Edarbi 40 mg tablet RxNorm: 1052745 1 Tablet(s) PO daily 03/14/2016 06/06/2016 Inactive trazodone 50 mg tablet RxNorm: 495125 Tablet(s) TAKE 1 AND 1/2 TABLET AT BEDTIME. MAY INCREASE TO 2 TABLETS IF NECESSARY 02/25/2016 07/05/2016 Inactive Imitrex 50 mg tablet RxNorm: 304107 1 Tablet(s) PO Q8 as needed may repeat x1 dose in 1 hour of inital dose. 02/25/2016 07/12/2016 Inactive dc fioricet Xanax 0.25 mg tablet RxNorm: 910258 1 Tablet(s) PO daily as needed 02/24/2016 07/21/2016 Inactive mupirocin 2 % topical ointment RxNorm: 025057 1 TOP BID 02/22/2016 No Stop Date Active Bactrim DS 800 mg-160 mg tablet RxNorm: 624912 1 Tablet(s) PO BID 02/22/2016 03/02/2016 Inactive Fioricet 50 mg-325 mg-40 mg tablet RxNorm: 485691 Tablet(s) TAKE ONE TABLET BY MOUTH EVERY 4 HOURS NEEDED FOR headache 02/12/2016 02/24/2016 Inactive (Response to an electronic controlled substance refill request - RxReferenceNumber: [id number]) Fioricet 50 mg-325 mg-40 mg tablet RxNorm: 216148 Tablet(s) TAKE ONE TABLET BY MOUTH EVERY 4 HOURS NEEDED FOR headache 02/12/2016 02/11/2016 Inactive (Response to an electronic controlled substance refill request - RxReferenceNumber: [id number]) Nexium 40 mg capsule,delayed release RxNorm: 871817 TAKE ONE CAPSULE BY MOUTH EVERY DAY 02/01/2016 10/27/2016 Inactive Bystolic 10 mg tablet RxNorm: 171706 Tablet(s) TAKE ONE TABLET BY MOUTH DAILY 01/06/2016 07/03/2016 Inactive Xanax 0.25 mg tablet RxNorm: 153890 1 Tablet(s) PO daily as needed 12/28/2015 02/23/2016 Inactive Levaquin 500 mg tablet RxNorm: 826941 1 Tablet(s) PO daily take a probiotic daily 12/14/2015 02/11/2016 Inactive Levaquin 500 mg tablet RxNorm: 989046 1 Tablet(s) PO daily take a probiotic daily 12/14/2015 12/13/2015 Inactive Phenergan with Codeine Syrup RxNorm: 5-10 Milliliter(s) PO Q6 PRN 12/07/2015 No Stop Date Active prednisone 20 mg tablet RxNorm: 872026 1 Tablet(s) PO BID 12/07/2015 12/13/2015 Inactive Augmentin 875 mg-125 mg tablet RxNorm: 933408 1 Tablet(s) PO BID 12/07/2015 12/13/2015 Inactive ceftriaxone 500 mg solution for injection RxNorm: 0027976 Inj 12/07/2015 12/07/2015 Inactive alprazolam 0.25 mg tablet RxNorm: 712930 1 Tablet(s) PO daily as needed 11/27/2015 12/25/2015 Inactive (Response to an electronic controlled substance refill request - RxReferenceNumber: [id number]) trazodone 50 mg tablet RxNorm: 527126 TAKE 1 AND 1/2 TABLET AT BEDTIME FOR 2 WEEKS, MAY INCREASE TO 2 TABLETS IF NECESSARY AFTER THAT 11/26/2015 02/24/2016 Inactive ceftriaxone 500 mg solution for injection RxNorm: 5790941 Milliliter(s) Inj 11/24/2015 11/24/2015 Inactive prednisone 10 mg tablet RxNorm: 576787 3 Tablet(s) PO daily 11/24/2015 11/28/2015 Inactive cefdinir 300 mg capsule RxNorm: 426248 1 Capsule(s) PO BID 11/24/2015 11/30/2015 Inactive Kenalog 40 mg/mL suspension for injection RxNorm: 1389865 1 Milliliter(s) Inj 11/24/2015 11/24/2015 Inactive Lexapro 20 mg tablet RxNorm: 795354 TAKE 1/2 TABLET BY MOUTH DAILY FOR 10 DAYS, THEN TAKE ONE TABLET BY MOUTH DAILY 11/23/2015 05/20/2016 Inactive Norvasc 10 mg tablet RxNorm: 678760 Tablet(s) PO TAKE ONE TABLET BY MOUTH EVERY DAY 10/26/2015 02/22/2016 Inactive Lipitor 10 mg tablet RxNorm: 291997 Tablet(s) TAKE ONE TABLET BY MOUTH EVERY DAY 10/26/2015 11/06/2016 Inactive hydrochlorothiazide 25 mg tablet RxNorm: 084645 TAKE ONE TABLET BY MOUTH DAILY 10/20/2015 01/17/2016 Inactive alprazolam 0.25 mg tablet RxNorm: 433922 1 Tablet(s) PO daily as needed 08/27/2015 11/22/2015 Inactive (Response to an electronic controlled substance refill request - RxReferenceNumber: [id number]) promethazine 25 mg/mL injection solution RxNorm: 174453 Milliliter(s) Inj 08/27/2015 08/27/2015 Inactive ketorolac 60 mg/2 mL intramuscular solution RxNorm: 446450 Milliliter(s) IM 08/27/2015 08/27/2015 Inactive Lexapro 20 mg tablet RxNorm: 581833 TAKE 1/2 TABLET BY MOUTH DAILY FOR 10 DAYS, THEN TAKE ONE TABLET BY MOUTH DAILY 08/13/2015 11/10/2015 Inactive Flonase 50 mcg/actuation nasal spray,suspension RxNorm: 144764 PLACE 1 SPRAY IN EACH NOSTRIL DAILY 08/13/2015 02/08/2016 Inactive Augmentin 500 mg-125 mg tablet RxNorm: 807554 1 Tablet(s) PO TID 08/10/2015 08/16/2015 Inactive Kenalog 40 mg/mL suspension for injection RxNorm: 8807253 Milliliter(s) Inj 08/10/2015 08/10/2015 Inactive ceftriaxone 500 mg solution for injection RxNorm: 3888353 Inj 08/10/2015 08/10/2015 Inactive nystatin 100,000 unit/mL oral suspension RxNorm: 883328 4 Milliliter(s) PO QID 08/10/2015 08/16/2015 Inactive trazodone 50 mg tablet RxNorm: 952699 TAKE 1 AND 1/2 TABLET AT BEDTIME FOR 2 WEEKS, MAY INCREASE TO 2 TABLETS IF NECESSARY AFTER THAT 07/31/2015 11/25/2015 Inactive ceftriaxone 500 mg solution for injection RxNorm: 4895994 1 Milliliter(s) Inj 07/28/2015 07/28/2015 Inactive Bactrim DS 800 mg-160 mg tablet RxNorm: 809124 1 Tablet(s) PO BID 07/28/2015 08/06/2015 Inactive Bactroban 2 % topical ointment RxNorm: 687849 1 Application TOP BID 07/28/2015 08/06/2015 Inactive Diflucan 150 mg tablet RxNorm: 057936 1 Tablet(s) PO daily 06/11/2015 06/17/2015 Inactive clotrimazole 1 % topical cream RxNorm: 027052 1 Application TOP BID 06/11/2015 07/10/2015 Inactive Bystolic 10 mg tablet RxNorm: 497208 TAKE ONE TABLET BY MOUTH DAILY 06/08/2015 12/04/2015 Inactive alprazolam 0.25 mg tablet RxNorm: 440921 1 Tablet(s) PO daily as needed 06/01/2015 08/25/2015 Inactive (Response to an electronic controlled substance refill request - RxReferenceNumber: [id number]) Fioricet 50 mg-325 mg-40 mg tablet RxNorm: 923628 Tablet(s) TAKE ONE TABLET BY MOUTH EVERY 4 HOURS NEEDED FOR headache 05/28/2015 06/08/2015 Inactive (Response to an electronic controlled substance refill request - RxReferenceNumber: [id number]) trazodone 50 mg tablet RxNorm: 154754 TAKE 1 AND 1/2 TABLET AT BEDTIME FOR 2 WEEKS, MAY INCREASE TO 2 TABLETS IF NECESSARY AFTER THAT 05/25/2015 08/22/2015 Inactive trazodone 50 mg tablet RxNorm: 796476 TAKE 1 AND 1/2 TABLET AT BEDTIME FOR 2 WEEKS, MAY INCREASE TO 2 TABLETS IF NECESSARY AFTER THAT 05/25/2015 05/24/2015 Inactive Synthroid 100 mcg tablet RxNorm: 382003 TAKE ONE TABLET BY MOUTH DAILY 04/23/2015 01/17/2016 Inactive Lipitor 10 mg tablet RxNorm: 388344 TAKE ONE TABLET BY MOUTH EVERY DAY 04/23/2015 10/25/2015 Inactive Kenalog 40 mg/mL suspension for injection RxNorm: 2711069 Milliliter(s) Inj 03/19/2015 03/19/2015 Inactive Lexapro 20 mg tablet RxNorm: 671878 1 Tablet(s) PO daily 03/19/2015 07/16/2015 Inactive 1/2 tab daily x 10 days then 1 tab daily hydrocodone 10 mg-acetaminophen 325 mg tablet RxNorm: 497534 Tablet(s) PO TAKE ONE TO TWO TABLETS BY MOUTH EVERY 6 HOURS NEEDED FOR PAIN 03/19/2015 06/06/2016 Inactive (Appended: Controlled substance eRx refill - RxReferenceNumber: [id number]) Carafate 1 gram tablet RxNorm: 013160 1 Tablet(s) PO AC & HS 03/19/2015 06/16/2015 Inactive dissolve in water and take as a slurry hydrochlorothiazide 25 mg tablet RxNorm: 865334 1 Tablet(s) PO daily 03/12/2015 09/07/2015 Inactive Nexium 40 mg capsule,delayed release RxNorm: 239528 TAKE ONE CAPSULE BY MOUTH EVERY DAY 02/26/2015 12/22/2015 Inactive Cymbalta 60 mg capsule,delayed release RxNorm: 429165 TAKE ONE CAPSULE BY MOUTH TWICE A DAY 02/23/2015 03/18/2015 Inactive alprazolam 0.25 mg tablet RxNorm: 152537 1 Tablet(s) PO daily as needed 02/11/2015 05/10/2015 Inactive (Response to an electronic controlled substance refill request - RxReferenceNumber: [id number]) trazodone 50 mg tablet RxNorm: 861235 TAKE 1 AND 1/2 TABLET AT BEDTIME FOR 2 WEEKS, MAY INCREASE TO 2 TABLETS IF NECESSARY AFTER THAT 01/27/2015 05/24/2015 Inactive Augmentin 500 mg-125 mg tablet RxNorm: 071661 1 Tablet(s) PO TID 01/07/2015 01/13/2015 Inactive gentamicin 0.3 % eye drops RxNorm: 438344 3 Drop(s) OPH QID 01/07/2015 01/13/2015 Inactive [AttnRPh: Saving apply/adjudicate RxGRP:[id number] RxBIN:[id number] RxPCN: ID#:[id number]] scopolamine 1.5 mg transdermal 72 hour patch RxNorm: 236798 1 Patch TD q72 hours 01/07/2015 11/23/2015 Inactive Synthroid 100 mcg tablet RxNorm: 993554 TAKE ONE TABLET BY MOUTH ONCE A DAY 01/06/2015 04/22/2015 Inactive nystatin 100,000 unit/gram topical powder RxNorm: 921506 APPLY TOPICALLY TWO TIMES A DAY 12/18/2014 03/17/2015 Inactive alprazolam 0.25 mg tablet RxNorm: 061206 TAKE ONE TABLET BY MOUTH DAILY NEEDED 10/30/2014 11/28/2014 Inactive (Response to an electronic controlled substance refill request - RxReferenceNumber: [id number]) alprazolam 0.25 mg tablet RxNorm: 377297 Tablet(s) TAKE ONE TABLET BY MOUTH DAILY 10/30/2014 10/29/2014 Inactive (Response to an electronic controlled substance refill request - RxReferenceNumber: [id number]) Lipitor 10 mg tablet RxNorm: 847130 TAKE ONE TABLET BY MOUTH EVERY DAY 10/30/2014 02/26/2015 Inactive alprazolam 0.25 mg tablet RxNorm: 088258 TAKE ONE TABLET BY MOUTH DAILY 10/07/2014 10/29/2014 Inactive (Response to an electronic controlled substance refill request - RxReferenceNumber: [id number]) alprazolam 0.25 mg tablet RxNorm: 607339 TAKE ONE TABLET BY MOUTH DAILY 10/06/2014 10/07/2014 Inactive (Response to an electronic controlled substance refill request - RxReferenceNumber: [id number]) alprazolam 0.25 mg tablet RxNorm: 834873 Tablet(s) TAKE ONE TABLET BY MOUTH EVERY DAY NEEDED 09/30/2014 10/06/2014 Inactive (Response to an electronic controlled substance refill request - RxReferenceNumber: [id number]) Fioricet 50 mg-325 mg-40 mg tablet RxNorm: 598385 Tablet(s) TAKE ONE TABLET BY MOUTH EVERY 4 HOURS NEEDED FOR headache 09/29/2014 10/12/2014 Inactive (Response to an electronic controlled substance refill request - RxReferenceNumber: [id number]) Bystolic 10 mg tablet RxNorm: 627785 1 Tablet(s) PO daily TAKE ONE TABLET BY MOUTH EVERY DAY 09/29/2014 04/26/2015 Inactive Bystolic 5 mg tablet RxNorm: 926071 TAKE 1 AND 1/2 TABLETS ONCE DAILY 09/24/2014 09/23/2014 Inactive Bystolic 5 mg tablet RxNorm: 185333 Tablet(s) TAKE 1 AND 1/2 TABLETS ONCE DAILY 09/24/2014 09/18/2015 Inactive gentamicin 0.3 % eye drops RxNorm: 152819 3 Drop(s) OPH QID 09/23/2014 09/29/2014 Inactive trazodone 50 mg tablet RxNorm: 668248 TAKE 1 AND 1/2 TABLET AT BEDTIME FOR 2 WEEKS, MAY INCREASE TO 2 TABLETS IF NECESSARY AFTER THAT 09/22/2014 01/26/2015 Inactive Fioricet 50 mg-325 mg-40 mg tablet RxNorm: 974049 TAKE ONE TABLET BY MOUTH EVERY 4 HOURS NEEDED FOR PAIN 09/17/2014 09/28/2014 Inactive (Response to an electronic controlled substance refill request - RxReferenceNumber: [id number]) Duragesic 50 mcg/hr transdermal patch RxNorm: 842221 1 TD q72 hours 08/07/2014 01/06/2015 Inactive [SAVINGS FOR UNINSURED PATIENTS -- BIN:[id number], PCN: ASPROD1, [facility] [id number], Process claim through [employer], for questions: . THIS IS NOT INSURANCE.] alprazolam 0.25 mg tablet RxNorm: 803537 TAKE ONE TABLET BY MOUTH EVERY DAY NEEDED 07/31/2014 08/29/2014 Inactive (Response to an electronic controlled substance refill request - RxReferenceNumber: [id number]) alprazolam 0.25 mg tablet RxNorm: 185630 1 Tablet(s) PO daily as needed TAKE ONE TABLET BY MOUTH EVERY DAY NEEDED 07/30/2014 08/01/2014 Inactive (Response to an electronic controlled substance refill request - RxReferenceNumber: [id number]) Diflucan 150 mg tablet RxNorm: 790590 1 Tablet(s) PO daily 06/25/2014 07/01/2014 Inactive [SAVINGS FOR UNINSURED PATIENTS -- BIN:[id number], PCN: ASPROD1, Group: [id number], ID# [id number], Process claim through [employer], for questions: . THIS IS NOT INSURANCE.] Kenalog 40 mg/mL suspension for injection RxNorm: 7760800 Milliliter(s) Inj 06/23/2014 06/23/2014 Inactive [SAVINGS FOR UNINSURED PATIENTS -- BIN:534960, PCN: ASPROD1, Group: [id number], ID# [id number], Process claim through [employer], for questions: . THIS IS NOT INSURANCE.] ceftriaxone 500 mg solution for injection RxNorm: 431030 Inj 06/23/2014 06/23/2014 Inactive [SAVINGS FOR UNINSURED PATIENTS -- BIN:711771, PCN: ASPROD1, Group: [id number], ID# [id number], Process claim through [employer], for questions: . THIS IS NOT INSURANCE.] Levaquin 500 mg tablet RxNorm: 489708 1 Tablet(s) PO daily 06/23/2014 07/13/2014 Inactive [SAVINGS FOR UNINSURED PATIENTS -- BIN:291210, PCN: ASPROD1, Group: [id number], ID# [id number], Process claim through [employer], for questions: . THIS IS NOT INSURANCE.] Duragesic 50 mcg/hr transdermal patch RxNorm: 691885 1 TD q72 hours 06/05/2014 08/06/2014 Inactive [SAVINGS FOR UNINSURED PATIENTS -- BIN:893956, PCN: ASPROD1, Group: [id number], ID# [id number], Process claim through [employer], for questions: . THIS IS NOT INSURANCE.] alprazolam 0.25 mg tablet RxNorm: 499156 1 Tablet(s) PO daily as needed TAKE ONE TABLET BY MOUTH EVERY DAY NEEDED 06/02/2014 07/29/2014 Inactive (Response to an electronic controlled substance refill request - RxReferenceNumber: [id number]) nystatin 100,000 unit/gram topical powder RxNorm: 112781 APPLY TO AFFECTED AREA(S) TWO TIMES A DAY 05/01/2014 06/14/2014 Inactive hydrochlorothiazide 25 mg tablet RxNorm: 207703 TAKE ONE TABLET BY MOUTH EVERY DAY MUST CALL MD FOR APPOINTMENT 04/24/2014 10/20/2014 Inactive alprazolam 0.25 mg tablet RxNorm: 059041 Tablet(s) TAKE ONE TABLET BY MOUTH EVERY DAY NEEDED 04/16/2014 06/02/2014 Inactive (Response to an electronic controlled substance refill request - RxReferenceNumber: [id number]) alprazolam 0.25 mg tablet RxNorm: 939870 TAKE ONE TABLET BY MOUTH EVERY DAY NEEDED 04/16/2014 05/15/2014 Inactive (Response to an electronic controlled substance refill request - RxReferenceNumber: [id number]) alprazolam 0.25 mg tablet RxNorm: 070127 TAKE ONE TABLET BY MOUTH EVERY DAY NEEDED 04/16/2014 05/15/2014 Inactive (Response to an electronic controlled substance refill request - RxReferenceNumber: [id number]) alprazolam 0.25 mg tablet RxNorm: 440587 TAKE ONE TABLET BY MOUTH EVERY DAY NEEDED 04/14/2014 04/16/2014 Inactive (Response to an electronic controlled substance refill request - RxReferenceNumber: [id number]) Lipitor 10 mg tablet RxNorm: 869252 TAKE ONE TABLET BY MOUTH EVERY DAY 04/14/2014 09/10/2014 Inactive alprazolam 0.25 mg tablet RxNorm: 189821 TAKE ONE TABLET BY MOUTH EVERY DAY NEEDED 04/14/2014 04/14/2014 Inactive (Response to an electronic controlled substance refill request - RxReferenceNumber: [id number]) alprazolam 0.25 mg tablet RxNorm: 775628 TAKE ONE TABLET BY MOUTH EVERY DAY NEEDED 04/14/2014 04/15/2014 Inactive (Response to an electronic controlled substance refill request - RxReferenceNumber: [id number]) alprazolam 0.25 mg tablet RxNorm: 166087 TAKE ONE TABLET BY MOUTH EVERY DAY NEEDED 04/14/2014 04/14/2014 Inactive [id number] nystatin 100,000 unit/gram topical powder RxNorm: 258635 1 Application TOP BID 04/03/2014 07/01/2014 Inactive [SAVINGS FOR UNINSURED PATIENTS -- BIN:846440, PCN: ASPROD1, Group: [id number], ID# [id number], Process claim through [employer], for questions: . THIS IS NOT INSURANCE.] Keflex 500 mg capsule RxNorm: 447420 1 Capsule(s) PO QID 04/03/2014 04/09/2014 Inactive [SAVINGS FOR UNINSURED PATIENTS -- BIN:916058, PCN: ASPROD1, Group: [id number], ID# [id number], Process claim through [employer], for questions: . THIS IS NOT INSURANCE.] Synthroid 100 mcg tablet RxNorm: 484647 1 Tablet(s) PO daily TAKE ONE TABLET BY MOUTH EVERY DAY 04/01/2014 01/05/2015 Inactive [SAVINGS FOR UNINSURED PATIENTS -- BIN:556166, PCN: ASPROD1, Group: [id number], ID# [id number], Process claim through [employer], for questions: . THIS IS NOT INSURANCE.] Duragesic 50 mcg/hr transdermal patch RxNorm: 294401 1 TD q72 hours 03/24/2014 06/04/2014 Inactive [SAVINGS FOR UNINSURED PATIENTS -- BIN:955603, PCN: ASPROD1, Group: [id number], ID# [id number], Process claim through [employer], for questions: . THIS IS NOT INSURANCE.] trazodone 50 mg tablet RxNorm: 587178 TAKE 1 AND 1/2 TABLET AT BEDTIME FOR 2 WEEKS, MAY INCREASE TO 2 TABLETS IF NECESSARY AFTER THAT 03/18/2014 09/13/2014 Inactive nystatin 100,000 unit/gram topical powder RxNorm: 467268 1 Application TOP BID 03/07/2014 03/16/2014 Inactive [SAVINGS FOR UNINSURED PATIENTS -- BIN:551083, PCN: ASPROD1, Group: [id number], ID# [id number], Process claim through [employer], for questions: . THIS IS NOT INSURANCE.] permethrin 5 % topical cream RxNorm: 393523 1 Application TOP daily 03/07/2014 11/23/2015 Inactive apply head to toe-leave on overnight and wash off in the a.m. May repeat x 1 if needed Diflucan 150 mg tablet RxNorm: 635631 1 Tablet(s) PO daily 03/07/2014 03/09/2014 Inactive [SAVINGS FOR UNINSURED PATIENTS -- BIN:131014, PCN: ASPROD1, Group: [id number], ID# [id number], Process claim through [employer], for questions: . THIS IS NOT INSURANCE.] hydrochlorothiazide 25 mg tablet RxNorm: 411073 TAKE ONE TABLET BY MOUTH EVERY DAY MUST CALL MD FOR APPOINTMENT 03/06/2014 04/23/2014 Inactive Zithromax Z-Sergio 250 mg tablet RxNorm: 645176 Tablet(s) PO as directed 03/04/2014 11/23/2015 Inactive [SAVINGS FOR UNINSURED PATIENTS -- BIN:843210, PCN: ASPROD1, Group: [id number], ID# [id number], Process claim through [employer], for questions: . THIS IS NOT INSURANCE.] Flonase 50 mcg/actuation nasal spray,suspension RxNorm: 808080 1 [place] NASAL daily 03/04/2014 07/01/2014 Inactive [SAVINGS FOR UNINSURED PATIENTS -- BIN:497480, PCN: ASPROD1, Group: [id number], ID# [id number], Process claim through [employer], for questions: . THIS IS NOT INSURANCE.] alprazolam 0.25 mg tablet RxNorm: 731631 1 Tablet(s) PO PRN TAKE ONE TABLET BY MOUTH EVERY DAY NEEDED 02/25/2014 04/14/2014 Inactive (Appended: Controlled substance eRx refill - RxReferenceNumber: [id number]) alprazolam 0.25 mg tablet RxNorm: 686537 TAKE ONE TABLET BY MOUTH EVERY DAY NEEDED 02/21/2014 03/22/2014 Inactive (Response to an electronic controlled substance refill request - RxReferenceNumber: [id number]) alprazolam 0.25 mg tablet RxNorm: 075159 TAKE ONE TABLET BY MOUTH EVERY DAY NEEDED 02/21/2014 03/22/2014 Inactive (Response to an electronic controlled substance refill request - RxReferenceNumber: [id number]) alprazolam 0.25 mg tablet RxNorm: 017363 TAKE ONE TABLET BY MOUTH EVERY DAY NEEDED 02/18/2014 03/19/2014 Inactive (Response to an electronic controlled substance refill request - RxReferenceNumber: [id number]) Cymbalta 60 mg capsule,delayed release RxNorm: 122128 TAKE ONE CAPSULE BY MOUTH TWICE A DAY 02/18/2014 01/13/2015 Inactive Nexium 40 mg capsule,delayed release RxNorm: 537060 TAKE ONE CAPSULE BY MOUTH EVERY DAY 02/18/2014 01/13/2015 Inactive Bactrim DS 800 mg-160 mg tablet RxNorm: 036425 1 Tablet(s) PO BID 02/13/2014 02/19/2014 Inactive probiotic while one antibiotic Bactrim DS 800 mg-160 mg tablet RxNorm: 872569 1 Tablet(s) PO BID 02/13/2014 02/12/2014 Inactive hydrocodone 10 mg-acetaminophen 325 mg tablet RxNorm: 491926 Tablet(s) PO TAKE ONE TO TWO TABLETS BY MOUTH EVERY 6 HOURS NEEDED FOR PAIN 02/06/2014 03/18/2015 Inactive (Appended: Controlled substance eRx refill - RxReferenceNumber: [id number]) Abilify 2 mg tablet RxNorm: 061699 Tablet(s) PO TAKE ONE TABLET BY MOUTH EVERY NIGHT AT BEDTIME 02/03/2014 03/19/2015 Inactive Duragesic 50 mcg/hr transdermal patch RxNorm: 285398 1 TD q72 hours 01/14/2014 03/23/2014 Inactive alprazolam 0.25 mg tablet RxNorm: 757744 1 Tablet(s) PO QDAY PRN 01/14/2014 02/12/2014 Inactive alprazolam 0.25 mg tablet RxNorm: 881240 Tablet(s) PO TAKE ONE TABLET BY MOUTH EVERY DAY NEEDED 01/14/2014 02/24/2014 Inactive (Appended: Controlled substance eRx refill - RxReferenceNumber: [id number]) Lipitor 10 mg tablet RxNorm: 332809 Tablet(s) PO TAKE ONE TABLET BY MOUTH EVERY DAY 01/14/2014 04/13/2014 Inactive Synthroid 100 mcg tablet RxNorm: 061371 Tablet(s) PO TAKE ONE TABLET BY MOUTH EVERY DAY 2013 03/31/2014 Inactive Fioricet 50 mg-325 mg-40 mg tablet RxNorm: 083858 Tablet(s) PO TAKE ONE TABLET BY MOUTH EVERY 4 HOURS NEEDED FOR PAIN 11/27/2013 09/17/2014 Inactive Fioricet 50 mg-325 mg-40 mg tablet RxNorm: 354702 Tablet(s) PO TAKE ONE TABLET BY MOUTH EVERY 4 HOURS NEEDED FOR PAIN 11/25/2013 11/26/2013 Inactive Zithromax Z-Sergio 250 mg tablet RxNorm: 110324 Tablet(s) PO as directed 11/11/2013 01/13/2014 Inactive Bystolic 10 mg tablet RxNorm: 424557 Tablet(s) PO TAKE ONE TABLET BY MOUTH EVERY DAY 10/21/2013 09/28/2014 Inactive Abilify 2 mg tablet RxNorm: 754434 1 Tablet(s) PO QHS 09/25/2013 01/22/2014 Inactive Synthroid 100 mcg tablet RxNorm: 212979 Tablet(s) PO TAKE ONE TABLET BY MOUTH EVERY DAY 09/24/2013 12/25/2013 Inactive Abilify 2 mg tablet RxNorm: 592941 1 Tablet(s) PO QHS 09/24/2013 09/24/2013 Inactive Rocephin 500 mg solution for injection RxNorm: 176127 1ml Milliliter(s) Inj 09/24/2013 09/24/2013 Inactive Rocephin 500 mg solution for injection RxNorm: 487442 1 Milliliter(s) Inj 09/19/2013 09/19/2013 Inactive Bystolic 5 mg tablet RxNorm: 536234 1 1/2 Tablet(s) PO daily 09/17/2013 03/15/2014 Inactive 1 1/2 daily may have 90 day if cheaper Bystolic 5 mg tablet RxNorm: 675167 1 1/2 Tablet(s) PO daily 09/17/2013 09/16/2013 Inactive 1 1/2 daily Lipitor 10 mg tablet RxNorm: 154536 Tablet(s) PO TAKE ONE TABLET BY MOUTH EVERY DAY 09/12/2013 01/13/2014 Inactive hydrocodone 10 mg-acetaminophen 325 mg tablet RxNorm: 609544 Tablet(s) PO TAKE ONE TO TWO TABLETS BY MOUTH EVERY 6 HOURS NEEDED FOR PAIN 09/09/2013 No Stop Date Active (Appended: Controlled substance eRx refill - RxReferenceNumber: [id number]) hydrocodone 10 mg-acetaminophen 325 mg tablet RxNorm: 188056 1 Tablet(s) PO Q6 PRN 09/09/2013 02/06/2014 Inactive hydrocodone 10 mg-acetaminophen 325 mg tablet RxNorm: 754097 Tablet(s) PO TAKE ONE TO TWO TABLETS BY MOUTH EVERY 6 HOURS NEEDED FOR PAIN 09/06/2013 No Stop Date Active (Appended: Controlled substance eRx refill - RxReferenceNumber: [id number]) Norvasc 10 mg tablet RxNorm: 493389 Tablet(s) PO TAKE ONE TABLET BY MOUTH EVERY DAY 09/05/2013 10/25/2015 Inactive trazodone 50 mg tablet RxNorm: 215344 1 1/2 Tablet(s) PO QHS 09/03/2013 03/17/2014 Inactive 75q hs x 2 week may increase to 100mg if nec after that nystatin 100,000 unit/mL oral suspension RxNorm: 931087 6 Milliliter(s) PO QID 08/06/2013 08/15/2013 Inactive Flonase 50 mcg/actuation nasal spray,suspension RxNorm: 389255 2 [place] NASAL daily 08/06/2013 03/03/2014 Inactive nystatin 100,000 unit/mL oral suspension RxNorm: 961319 6 Unit(s) PO QID 08/05/2013 08/05/2013 Inactive Phenergan with Codeine Syrup RxNorm: 5 Milliliter(s) PO Q4 PRN 08/05/2013 12/02/2013 Inactive 8 ounces alprazolam 0.25 mg tablet RxNorm: 216156 1 Tablet(s) PO QDAY PRN 07/29/2013 01/14/2014 Inactive Diflucan 150 mg tablet RxNorm: 951208 1 Tablet(s) PO daily 07/24/2013 07/26/2013 Inactive hydrochlorothiazide 25 mg tablet RxNorm: 235865 Tablet(s) PO TAKE ONE TABLET BY MOUTH EVERY DAY MUST CALL MD FOR APPOINTMENT 07/19/2013 03/05/2014 Inactive Phenergan with Codeine Syrup RxNorm: 10 Milliliter(s) PO Q4 PRN 07/10/2013 08/04/2013 Inactive 8 ounces Rocephin 500 mg solution for injection RxNorm: 061930 1 Inj 07/10/2013 07/10/2013 Inactive cefdinir 300 mg capsule RxNorm: 730560 1 Capsule(s) PO BID 07/10/2013 07/16/2013 Inactive prednisone 10 mg tablet RxNorm: 857626 3 Tablet(s) PO daily 07/10/2013 07/14/2013 Inactive Carafate 100 mg/mL oral suspension RxNorm: 436136 10 Milliliter(s) PO Q6 PRN pt to take carafate 10mL every 6 hours as needed. 07/10/2013 08/05/2014 Inactive Kenalog 40 mg/mL suspension for injection RxNorm: 6025189 1 Milliliter(s) Inj 07/10/2013 07/10/2013 Inactive trazodone 50 mg tablet RxNorm: 089437 1 Tablet(s) PO QHS 07/10/2013 09/02/2013 Inactive sulfamethoxazole 800 mg-trimethoprim 160 mg tablet RxNorm: 320872 1 Tablet(s) PO BID 06/03/2013 06/12/2013 Inactive Synthroid 125 mcg tablet RxNorm: 386193 1 Tablet(s) PO daily 05/07/2013 09/23/2013 Inactive Bystolic 10 mg tablet RxNorm: 816350 1.5 Tablet(s) PO daily 05/07/2013 09/03/2013 Inactive Voltaren 1 % Topical Gel RxNorm: 927414 4 Gram(s) TOP QID apply 4 grams to knees, 2 grams to hands and ankles four times daily. 05/07/2013 09/03/2013 Inactive hydrocodone 10 mg-acetaminophen 325 mg tablet RxNorm: 693168 1 Tablet(s) PO Q6 PRN 04/23/2013 09/09/2013 Inactive Norvasc 10 mg tablet RxNorm: 959678 Tablet(s) PO TAKE ONE TABLET BY MOUTH EVERY DAY 04/23/2013 09/04/2013 Inactive alprazolam 0.25 mg tablet RxNorm: 217943 1 Tablet(s) PO QDAY PRN 03/25/2013 07/22/2013 Inactive Bystolic 10 mg tablet RxNorm: 837267 1 Tablet(s) PO daily TAKE ONE TABLET BY MOUTH EVERY DAY 03/25/2013 05/06/2013 Inactive zolpidem 10 mg tablet RxNorm: 238329 1 Tablet(s) PO HS PRN 03/25/2013 07/09/2013 Inactive gentamicin 0.3 % Eye Drops RxNorm: 326404 3 Drop(s) OPH QID three gtts to each eye QID x 7 days 03/11/2013 03/10/2013 Inactive gentamicin 0.3 % eye drops RxNorm: 939214 3 Drop(s) OPH QID three gtts to each eye QID x 7 days 03/11/2013 03/17/2013 Inactive Nexium 40 mg capsule,delayed release RxNorm: 180450 Capsule(s) PO TAKE ONE CAPSULE BY MOUTH EVERY DAY 02/15/2013 02/17/2014 Inactive Cymbalta 60 mg capsule,delayed release RxNorm: 572420 Capsule(s) PO TAKE ONE CAPSULE BY MOUTH TWICE A DAY 02/15/2013 02/17/2014 Inactive hydrocodone 10 mg-acetaminophen 325 mg tablet RxNorm: 9757470 1 Tablet(s) PO Q6 PRN 01/22/2013 04/22/2013 Inactive Lipitor 10 mg tablet RxNorm: 661440 Tablet(s) PO TAKE ONE TABLET BY MOUTH EVERY DAY 01/07/2013 09/11/2013 Inactive Cymbalta 60 mg capsule,delayed release RxNorm: 262358 Capsule(s) PO TAKE ONE CAPSULE BY MOUTH TWICE A DAY 01/02/2013 02/14/2013 Inactive Synthroid 100 mcg tablet RxNorm: 852804 1 Tablet(s) PO 12/03/2012 05/06/2013 Inactive Enablex 7.5 mg tablet,extended release RxNorm: 926664 1 Tablet(s) PO daily 11/28/2012 11/27/2012 Inactive Enablex 7.5 mg tablet,extended release RxNorm: 192436 1 Tablet(s) PO daily 11/28/2012 11/28/2012 Inactive scopolamine 1.5 mg 72 hr Transderm Patch RxNorm: 949721 1 Milligram(s) TD q72 hours 11/26/2012 05/06/2013 Inactive hydrochlorothiazide 25 mg tablet RxNorm: 568039 Tablet(s) PO TAKE ONE TABLET BY MOUTH EVERY DAY MUST CALL FOR APPOINTMENT 11/24/2012 07/18/2013 Inactive Cymbalta 60 mg capsule,delayed release RxNorm: 638877 Capsule(s) PO TAKE ONE CAPSULE BY MOUTH TWICE A DAY 10/26/2012 01/01/2013 Inactive Bystolic 10 mg tablet RxNorm: 155245 Tablet(s) PO TAKE ONE TABLET BY MOUTH EVERY DAY 10/12/2012 03/25/2013 Inactive zolpidem 10 mg tablet RxNorm: 831654 1 Tablet(s) PO HS PRN 10/02/2012 01/29/2013 Inactive alprazolam 0.25 mg tablet RxNorm: 417540 1 Tablet(s) PO QDAY PRN 10/02/2012 01/29/2013 Inactive Kenalog 40 mg/mL Susp for Injection RxNorm: 8728985 1 Milliliter(s) Inj 09/24/2012 09/24/2012 Inactive Diflucan 150 mg tablet RxNorm: 344943 1 Tablet(s) PO daily 09/24/2012 09/30/2012 Inactive acyclovir 400 mg tablet RxNorm: 014282 1 Tablet(s) PO QID 09/24/2012 10/08/2012 Inactive Cipro 500 mg tablet RxNorm: 898771 1 Tablet(s) PO BID 09/24/2012 09/30/2012 Inactive Tamiflu 75 mg capsule RxNorm: 509190 1 Capsule(s) PO BID 09/17/2012 09/16/2012 Inactive Tamiflu 75 mg capsule RxNorm: 922738 1 Capsule(s) PO BID 09/17/2012 09/16/2012 Inactive Tamiflu 75 mg capsule RxNorm: 743790 1 Capsule(s) PO BID please disregard order for #14 09/17/2012 09/21/2012 Inactive fluconazole 150 mg tablet RxNorm: 524783 1 Tablet(s) PO daily 09/10/2012 09/13/2012 Inactive ketoconazole 2 % Topical Cream RxNorm: 093316 Application TOP BID apply to affected area BID until gone 08/31/2012 No Stop Date Active Norvasc 10 mg tablet RxNorm: 654174 Tablet(s) PO TAKE ONE TABLET BY MOUTH EVERY DAY 08/29/2012 04/22/2013 Inactive Cipro 500 mg tablet RxNorm: 318277 1 Tablet(s) PO BID 08/17/2012 08/26/2012 Inactive Flagyl 500 mg tablet RxNorm: 924595 1 Tablet(s) PO TID 08/17/2012 08/23/2012 Inactive Cipro 500 mg tablet RxNorm: 438611 1 Tablet(s) PO BID 08/17/2012 08/16/2012 Inactive zolpidem 10 mg tablet RxNorm: 680127 1 Tablet(s) PO HS PRN 08/17/2012 09/15/2012 Inactive Flagyl 500 mg tablet RxNorm: 368016 1 Tablet(s) PO TID 08/17/2012 08/16/2012 Inactive alprazolam 0.25 mg tablet RxNorm: 239173 1 Tablet(s) PO QDAY PRN 08/17/2012 09/15/2012 Inactive [place] Allergy 180 mg tablet RxNorm: 461959 1 Tablet(s) PO daily 08/08/2012 02/03/2013 Inactive hydrochlorothiazide 25 mg tablet RxNorm: 608027 1/2 Tablet(s) PO daily 08/08/2012 11/05/2012 Inactive needs appt Carafate 1 gram tablet RxNorm: 441852 1 Tablet(s) PO QID mix with 10 cc water and dissolve into slurry 08/08/2012 08/21/2012 Inactive hydrocodone 10 mg-acetaminophen 325 mg tablet RxNorm: 8518355 1 Tablet(s) PO Q6 PRN 08/08/2012 01/21/2013 Inactive Synthroid 100 mcg tablet RxNorm: 389250 1 Tablet(s) PO 08/08/2012 12/02/2012 Inactive Cymbalta 60 mg capsule,delayed release RxNorm: 915572 Capsule(s) PO 07/23/2012 10/25/2012 Inactive TAKE ONE CAPSULE BY MOUTH TWICE A DAY Nexium 40 mg capsule,delayed release RxNorm: 389661 Capsule(s) PO 06/20/2012 02/14/2013 Inactive TAKE ONE CAPSULE BY MOUTH EVERY DAY Lipitor 10 mg tablet RxNorm: 337242 Tablet(s) PO 06/20/2012 01/06/2013 Inactive TAKE ONE TABLET BY MOUTH EVERY DAY hydrochlorothiazide 25 mg tablet RxNorm: 146690 1 Tablet(s) PO daily 06/19/2012 08/07/2012 Inactive needs appt alprazolam 0.25 mg tablet RxNorm: 791739 1 Tablet(s) PO QDAY PRN 06/05/2012 07/04/2012 Inactive zolpidem 10 mg tablet RxNorm: 958300 1 Tablet(s) PO HS PRN 06/05/2012 07/04/2012 Inactive zolpidem 10 mg tablet RxNorm: 476238 1 Tablet(s) PO HS PRN 04/16/2012 05/15/2012 Inactive alprazolam 0.25 mg tablet RxNorm: 334912 1 Tablet(s) PO QDAY PRN 04/16/2012 05/15/2012 Inactive Cymbalta 60 mg capsule,delayed release RxNorm: 818225 1 Capsule(s) PO BID 03/22/2012 07/19/2012 Inactive Fioricet 50 mg-325 mg-40 mg tablet RxNorm: 827998 1 Tablet(s) PO Q4 PRN 03/22/2012 11/24/2013 Inactive Bystolic 10 mg tablet RxNorm: 203540 Tablet(s) PO 03/22/2012 10/11/2012 Inactive TAKE ONE TABLET BY MOUTH EVERY DAY potassium chloride ER 10 mEq Tab RxNorm: 732200 1 Tablet(s) PO daily 02/24/2012 03/01/2012 Inactive Lasix 20 mg Tab RxNorm: 958141 1 Tablet(s) PO daily 02/22/2012 02/21/2012 Inactive KCL 10 meq RxNorm: 1 PO daily 02/22/2012 02/21/2012 Inactive potassium chloride ER 10 mEq Tab RxNorm: 395024 1 Tablet(s) PO daily 02/22/2012 02/21/2012 Inactive Lasix 20 mg Tab RxNorm: 038454 1 Tablet(s) PO daily 02/22/2012 02/28/2012 Inactive KCL 10 meq RxNorm: 1 PO daily 02/22/2012 02/22/2012 Inactive potassium chloride ER 10 mEq Tab RxNorm: 791419 1 Tablet(s) PO daily 02/22/2012 02/23/2012 Inactive Rocephin 500 mg Solution for Injection RxNorm: 344051 Inj 02/15/2012 02/15/2012 Inactive Nexium 40 mg capsule,delayed release RxNorm: 648277 1 Capsule(s) PO daily 02/15/2012 No Stop Date Active Bystolic 10 mg Tab RxNorm: 157830 1 Tablet(s) PO daily 02/15/2012 08/12/2012 Inactive alprazolam 0.25 mg tablet RxNorm: 048952 1 Tablet(s) PO QDAY PRN 01/31/2012 02/29/2012 Inactive zolpidem 10 mg tablet RxNorm: 797632 1 Tablet(s) PO HS PRN 01/31/2012 02/29/2012 Inactive alprazolam 0.25 mg Tab RxNorm: 400416 1 Tablet(s) PO QDAY PRN 12/16/2011 01/14/2012 Inactive zolpidem 10 mg Tab RxNorm: 542991 1 Tablet(s) PO HS PRN 12/16/2011 01/14/2012 Inactive Norvasc 10 mg tablet RxNorm: 865704 1 Tablet(s) PO daily 12/02/2011 02/21/2012 Inactive Lipitor 10 mg tablet RxNorm: 260655 1 Tablet(s) PO daily 11/16/2011 05/13/2012 Inactive zolpidem 10 mg Tab RxNorm: 454631 1 Tablet(s) PO HS PRN 10/26/2011 12/15/2011 Inactive alprazolam 0.25 mg Tab RxNorm: 561823 1 Tablet(s) PO QDAY PRN 10/26/2011 12/15/2011 Inactive hydrochlorothiazide 25 mg tablet RxNorm: 846902 1 Tablet(s) PO daily 09/05/2011 03/02/2012 Inactive Synthroid 75 mcg tablet RxNorm: 351419 1 Tablet(s) PO daily 08/01/2011 02/26/2012 Inactive Abilify 2 mg Tab RxNorm: 204672 1 Tablet(s) PO QHS 08/01/2011 09/10/2012 Inactive dicyclomine 10 mg Cap RxNorm: 412747 1 Capsule(s) PO TID 08/01/2011 10/29/2011 Inactive alprazolam 0.25 mg Tab RxNorm: 833536 1 Tablet(s) PO QDAY PRN 07/26/2011 10/25/2011 Inactive Fioricet 50 mg-325 mg-40 mg tablet RxNorm: 160425 1 Tablet(s) PO Q4 PRN 07/14/2011 03/21/2012 Inactive Rocephin 500 mg Solution for Injection RxNorm: 420973 1 Milliliter(s) Inj 07/14/2011 08/01/2011 Inactive Nexium 40 mg Capsule, delayed release RxNorm: 094610 1 Capsule(s) PO daily 05/23/2011 10/06/2011 Inactive Bystolic 10 mg tablet RxNorm: 840324 1 Tablet(s) PO daily 05/23/2011 11/18/2011 Inactive Bystolic 10 mg Tab RxNorm: 041716 1 Tablet(s) PO daily 05/23/2011 05/22/2011 Inactive alprazolam 0.25 mg Tab RxNorm: 002913 1 Tablet(s) PO QDAY PRN 05/23/2011 07/25/2011 Inactive Influenza Virus Vaccine 0.5 mL RxNorm: IM 05/23/2011 05/23/2011 Inactive zolpidem 10 mg Tab RxNorm: 413638 1 Tablet(s) PO HS PRN 05/23/2011 10/25/2011 Inactive Rocephin 500 mg Solution for Injection RxNorm: 047738 1 Milliliter(s) Inj 05/03/2011 07/14/2011 Inactive Kenalog 40 mg/mL Susp for Injection RxNorm: 3583890 1 Milliliter(s) Inj 05/03/2011 07/14/2011 Inactive Bactrim DS 800 mg-160 mg Tab RxNorm: 084617 1 Tablet(s) PO BID 05/03/2011 08/01/2011 Inactive Flonase 50 mcg/actuation nasal spray,suspension RxNorm: 4333185 1 [place] NASAL daily No Start Date Active 1 spray to each nostril daily aspirin 81 mg tablet RxNorm: 768437 1 Tablet(s) PO daily No Start Date Active baclofen 10 mg tablet RxNorm: 225021 1 Tablet(s) PO TID as needed muscle spasms No Start Date Active Fish Oil 1,000 mg Cap RxNorm: 1 Capsule(s) PO TID No Start Date Active Flonase 50 mcg/actuation nasal spray,suspension RxNorm: 7312952 2 [place] NASAL daily No Start Date 08/05/2013 Inactive Duragesic 50 mcg/hr transdermal patch RxNorm: 007324 1 TD q72 hours No Start Date 01/13/2014 Inactive Vesicare 5 mg tablet RxNorm: 938405 1 Tablet(s) PO daily No Start Date 01/06/2015 Inactive Celebrex 200 mg capsule RxNorm: 046296 1 Capsule(s) PO daily No Start Date 04/02/2014 Inactive zolpidem 10 mg Tab RxNorm: 029239 1 Tablet(s) PO HS PRN No Start Date 05/22/2011 Inactive Zyrtec 10 mg Tab RxNorm: 0806436 1 Tablet(s) PO daily No Start Date 08/08/2012 Inactive Nexium 40 mg Cap RxNorm: 505631 1 Capsule(s) PO daily No Start Date 05/22/2011 Inactive ketoconazole 2 % Topical Cream RxNorm: 560735 Application TOP BID apply to affected area BID until gone No Start Date 08/30/2012 Inactive Cymbalta 60 mg capsule,delayed release RxNorm: 926049 1 Capsule(s) PO BID No Start Date 03/21/2012 Inactive alprazolam 0.25 mg Tab RxNorm: 134245 1 Tablet(s) PO QDAY PRN No Start Date 05/22/2011 Inactive Toprol XL 100 mg 24 hr Tab RxNorm: 863863 1 Tablet(s) PO BID No Start Date 04/25/2011 Inactive Xanax 0.25 mg tablet RxNorm: 515678 1 Tablet(s) PO daily as needed No Start Date 12/27/2015 Inactive Bystolic 10 mg Tab RxNorm: 205141 1 Tablet(s) PO daily No Start Date 05/22/2011 Inactive Fioricet 50 mg-325 mg-40 mg Tab RxNorm: 691863 1 Tablet(s) PO Q4 PRN No Start Date 07/13/2011 Inactive albuterol sulfate HFA 90 mcg/Actuation Aerosol Inhaler RxNorm: 7602110 1 INH Q4 PRN No Start Date 01/06/2015 Inactive Imitrex 50 mg tablet RxNorm: 758004 1 Tablet(s) PO Q8 as needed may repeat x1 dose in 1 hour of inital dose. No Start Date 02/24/2016 Inactive dc fioricet Tessalon 200 mg Cap RxNorm: 321586 1 Capsule(s) PO Q4 PRN No Start Date 02/14/2012 Inactive Zithromax Z-Sergio 250 mg tablet RxNorm: 320158 Tablet(s) PO No Start Date 11/10/2013 Inactive hydrochlorothiazide 25 mg Tab RxNorm: 558191 1 Tablet(s) PO daily No Start Date 09/04/2011 Inactive Deplin 15 mg Tab RxNorm: 1 Tablet(s) PO daily No Start Date 08/01/2011 Inactive Brilinta 90 mg tablet RxNorm: 6897972 1 Tablet(s) PO BID No Start Date 11/23/2015 Inactive Synthroid 75 mcg Tab RxNorm: 286617 1 Tablet(s) PO daily No Start Date 07/31/2011 Inactive scopolamine 1.5 mg 72 hr Transderm Patch RxNorm: 588479 1 Milligram(s) TD q72 hours No Start Date 11/25/2012 Inactive hydrocodone-acetaminophen 10 mg-325 mg tablet RxNorm: 5613320 1 Tablet(s) PO Q6 PRN No Start Date 08/07/2012 Inactive Phenergan with Codeine Syrup RxNorm: 5-10 Milliliter(s) PO Q6 PRN No Start Date 02/14/2012 Inactive Norvasc 10 mg Tab RxNorm: 405841 1 Tablet(s) PO daily No Start Date 12/01/2011 Inactive Zithromax Z-Sergio 250 mg Tab RxNorm: 938518 Tablet(s) PO No Start Date 08/01/2011 Inactive Medication Administered Medication Codes Instructions Start Date Status ceftriaxone 500 mg solution for injection RxNorm: 9760024 1Milliliter 11/28/2016 No longer Active Kenalog 40 mg/mL suspension for injection RxNorm: 6557555 Milliliter 11/07/2016 No longer Active ceftriaxone 500 mg solution for injection RxNorm: 4300151 11/07/2016 No longer Active ceftriaxone 500 mg solution for injection RxNorm: 8955718 12/07/2015 No longer Active Kenalog 40 mg/mL suspension for injection RxNorm: 8428371 1Milliliter 11/24/2015 No longer Active ceftriaxone 500 mg solution for injection RxNorm: 4676437 Milliliter 11/24/2015 No longer Active promethazine 25 mg/mL injection solution RxNorm: 200992 Milliliter 08/27/2015 No longer Active ketorolac 60 mg/2 mL intramuscular solution RxNorm: 071671 Milliliter 08/27/2015 No longer Active Kenalog 40 mg/mL suspension for injection RxNorm: 5511411 Milliliter 08/10/2015 No longer Active ceftriaxone 500 mg solution for injection RxNorm: 2720515 08/10/2015 No longer Active ceftriaxone 500 mg solution for injection RxNorm: 5148693 1Milliliter 07/28/2015 No longer Active Kenalog 40 mg/mL suspension for injection RxNorm: 6491013 Milliliter 03/19/2015 No longer Active Kenalog 40 mg/mL suspension for injection RxNorm: 8963658 Milliliter 06/23/2014 No longer Active ceftriaxone 500 mg solution for injection RxNorm: 564160 06/23/2014 No longer Active Rocephin 500 mg solution for injection RxNorm: 796677 1mlMilliliter 09/24/2013 No longer Active Rocephin 500 mg solution for injection RxNorm: 772139 1Milliliter 09/19/2013 No longer Active Rocephin 500 mg solution for injection RxNorm: 106304 1 07/10/2013 No longer Active Kenalog 40 mg/mL suspension for injection RxNorm: 0931070 1Milliliter 07/10/2013 No longer Active Kenalog 40 mg/mL Susp for Injection RxNorm: 0183294 1Milliliter 09/24/2012 No longer Active Rocephin 500 mg Solution for Injection RxNorm: 538146 02/15/2012 No longer Active Influenza Virus Vaccine [...] 26.9 % 11/07/2016 Cbc With Differential Ord2 [place]% 6.1 % 11/07/2016 Cbc With Differential Ord2 [...] 2.48 K/ul 11/07/2016 Cbc With Differential Ord2 [place] ABS# 0.6 K/ul 11/07/2016 Cbc With Differential Ord2 Eos ABS# 0.3 K/ul 11/07/2016 Cbc With Differential Ord2 Baso ABS# 0.1 K/ul 11/07/2016 Comp Metabolic Xls617 NA 139 mEq/L 11/07/2016 Comp Metabolic Slr407 K 3.8 mEq/L 11/07/2016 Comp Metabolic Oss360 CL 106 mEq/L 11/07/2016 Comp Metabolic Nci563 CO2 25.0 mEq/L 11/07/2016 Comp Metabolic Lso338 ANION GAP 12 11/07/2016 Comp Metabolic Awq829 GLUCOSE 98 mg/dL 11/07/2016 Comp Metabolic Dwj204 Creat 0.8 mg/dL 11/07/2016 Comp Metabolic Ifa936 eGFR 71 ml/min/1.73m2 11/07/2016 Comp Metabolic Adp288 BUN 36 mg/dL 11/07/2016 Comp Metabolic Npg015 B/C Ratio 42.9 Ratio 11/07/2016 Comp Metabolic Kra232 CALCIUM 9.9 mg/dL 11/07/2016 Comp Metabolic Vny639 ALK PHOS 57 U/L 11/07/2016 Comp Metabolic Pql759 AST(SGOT) 24 U/L 11/07/2016 Comp Metabolic Gum611 ALT(SGPT) 28 U/L 11/07/2016 Comp Metabolic Pyq979 BILI T 0.4 mg/dL 11/07/2016 Comp Metabolic Faa049 ALBUMIN 4.2 g/dL 11/07/2016 Comp Metabolic Ffw426 TPRO 7.0 g/dL 11/07/2016 Comp Metabolic Egc928 GLOB 2.8 g/dL 11/07/2016 Comp Metabolic Pwe923 A/G Ratio 1.5 Ratio 11/07/2016 Comp Metabolic Umt788 Osmo 286 mOsmo 11/07/2016 Free T4 Adx268 FREE T4 0.75 ng/dL 11/07/2016 Tsh Ord6 hTSH II 3.46 uIU/mL 11/07/2016 Comp Metabolic Yfi759 NA 138 mEq/L 05/10/2016 Comp Metabolic Hyn879 K 3.8 mEq/L 05/10/2016 Comp Metabolic Xlk227 CL 102 mEq/L 05/10/2016 Comp Metabolic Bcp277 CO2 29.0 mEq/L 05/10/2016 Comp Metabolic Biv669 ANION GAP 11 05/10/2016 Comp Metabolic Gfu997 GLUCOSE 107 mg/dL 05/10/2016 Comp Metabolic Gmt401 Creat 0.7 mg/dL 05/10/2016 Comp Metabolic Epp291 eGFR 93 ml/min/1.73m2 05/10/2016 Comp Metabolic Wyt692 BUN 18 mg/dL 05/10/2016 Comp Metabolic Qkg768 B/C Ratio 26.9 Ratio 05/10/2016 Comp Metabolic Rge850 CALCIUM 9.8 mg/dL 05/10/2016 Comp Metabolic Vcg629 ALK PHOS 60 U/L 05/10/2016 Comp Metabolic Kuj531 AST(SGOT) 21 U/L 05/10/2016 Comp Metabolic Tca313 ALT(SGPT) 23 U/L 05/10/2016 Comp Metabolic Lmy056 BILI T 0.5 mg/dL 05/10/2016 Comp Metabolic Ncu066 ALBUMIN 4.1 g/dL 05/10/2016 Comp Metabolic Ypq183 TPRO 6.7 g/dL 05/10/2016 Comp Metabolic Yzw297 GLOB 2.7 g/dL 05/10/2016 Comp Metabolic Rxn680 A/G Ratio 1.5 Ratio 05/10/2016 Comp Metabolic Htr681 Osmo 278 mOsmo 05/10/2016 Lipid Ord30 CHOL 169 mg/dL 05/10/2016 Lipid Ord30 HDL 50.0 mg/dl 05/10/2016 Lipid Ord30 TRIG 161 mg/dL 05/10/2016 Lipid Ord30 LDL 87 mg/dL 05/10/2016 Lipid Ord30 C/HDL 3.4 Ratio 05/10/2016 Comp Metabolic Pda057 NA 137 mEq/L 06/12/2015 Comp Metabolic Mir918 K 3.8 mEq/L 06/12/2015 Comp Metabolic Eel334 CL 104 mEq/L 06/12/2015 Comp Metabolic Ayt712 CO2 24.0 mEq/L 06/12/2015 Comp Metabolic Lli851 ANION GAP 13 06/12/2015 Comp Metabolic Bzn533 GLUCOSE 92 mg/dL 06/12/2015 Comp Metabolic Mlg395 Creat 0.7 mg/dL 06/12/2015 Comp Metabolic Tqg372 eGFR 87 ml/min/1.73m2 06/12/2015 Comp Metabolic Dgs794 BUN 31 mg/dL 06/12/2015 Comp Metabolic Knr021 B/C Ratio 43.7 Ratio 06/12/2015 Comp Metabolic Jwc581 CALCIUM 10.0 mg/dL 06/12/2015 Comp Metabolic Kqq714 ALK PHOS 58 U/L 06/12/2015 Comp Metabolic Puj912 AST(SGOT) 32 U/L 06/12/2015 Comp Metabolic Qyt354 ALT(SGPT) 33 U/L 06/12/2015 Comp Metabolic Eep907 BILI T 0.5 mg/dL 06/12/2015 Comp Metabolic Fjy158 ALBUMIN 4.1 g/dL 06/12/2015 Comp Metabolic Ekk556 TPRO 6.6 g/dL 06/12/2015 Comp Metabolic Dmv267 GLOB 2.5 g/dL 06/12/2015 Comp Metabolic Qnl442 A/G Ratio 1.6 Ratio 06/12/2015 Comp Metabolic Qge717 Osmo 280 mOsmo 06/12/2015 Cbc With Differential [...] Differential Ord2 RDW 14.2 % 06/12/2015 CBC [id number] WBC 8.7 10e9/L 04/30/2013 CBC [id number] RBC 4.63 10e12/L 04/30/2013 CBC [id number] HGB 14.1 g/dL 04/30/2013 CBC [id number] HCT DET 42.2 % 04/30/2013 CBC [id number] MCV 91.1 fL 04/30/2013 CBC 1452385 MCH 30.5 pg 04/30/2013 CBC 8556855 MCHC 33.4 g/dL 04/30/2013 CBC [id number] PLT 248 10e9/L 04/30/2013 CBC 3209372 MPV 12.1 fL 04/30/2013 CBC [id number] LARA % 59.0 % 04/30/2013 CBC 6229301 LY % 27.6 % 04/30/2013 CBC 6440885 MON % 8.0 % 04/30/2013 CBC [id number] EOS % 4.8 % 04/30/2013 CBC 2295332 BASO % 0.6 % 04/30/2013 CBC 6657726 RDW 13.3 % 04/30/2013 CBC [id number] ABS LARA 5.13 10e9/L 04/30/2013 CBC 8568663 ABS LYMPH 2.40 10e9/L 04/30/2013 CBC 6568822 ABS MONO 0.70 10e9/L 04/30/2013 CBC 0562386 ABS EOS 0.42 10e9/L 04/30/2013 CBC 9440173 ABS BASO 0.05 10e9/L 04/30/2013 CBC 5951195 RDW-SD 43.1 fL 04/30/2013 TSH 4249732 TSH 4.339 uIU/ML 04/30/2013 A1C HPLC [id number] A1C HPLC 10854-4 5.6 % 04/30/2013 FREE T4 8738245 FREE T4 0.84 NG/DL 04/30/2013 GFR CALC 9128035 GFR AA >60 ML/MIN 04/30/2013 GFR CALC 4712269 GFR NON-AA >60 ML/MIN 04/30/2013 CHEM 14 6089901 AST 22 U/L 04/30/2013 CHEM 14 2045252 ALT 22 IU/L 04/30/2013 CHEM 14 7237927 BUN 24 MG/DL 04/30/2013 CHEM 14 5026479 ALBUMIN 4.2 GM/DL 04/30/2013 CHEM 14 7181493 CHLORIDE 107 MMOL/L 04/30/2013 CHEM 14 1481006 BILI TOT 0.3 MG/DL 04/30/2013 CHEM 14 1132285 ALK PHOS 88 U/L 04/30/2013 CHEM 14 8474134 SODIUM 141 MMOL/L 04/30/2013 CHEM 14 7434946 CREATININE 0.60 MG/DL 04/30/2013 CHEM 14 5194278 CALCIUM 9.9 MG/DL 04/30/2013 CHEM 14 7630289 POTASSIUM 3.7 MMOL/L 04/30/2013 CHEM 14 9300356 PROT TOT 6.6 GM/DL 04/30/2013 CHEM 14 4986548 GLUCOSE 123 MG/DL 04/30/2013 CHEM 14 5493673 BICARB 25 MMOL/L 04/30/2013 CHEM 14 7961969 ANION GAP 9 MEQ/L 04/30/2013 LIPID GRP HDL TEST 46 MG/DL 04/30/2013 LIPID GRP TRIG 148 MG/DL 04/30/2013 LIPID GRP TEST LDL 75 MG/DL 04/30/2013 LIPID GRP CHOL 151 MG/DL 04/30/2013 LIPID GRP RCHOL/HDL 3.28 RATIO 04/30/2013 TSH 4580887 TSH 3.341 uIU/ML 11/29/2012 CBC 4867735 WBC 8.4 10e9/L 11/29/2012 CBC 6331047 RBC 4.77 10e12/L 11/29/2012 CBC [id number] HGB 14.9 g/dL 11/29/2012 CBC 2357060 HCT DET 44.2 % 11/29/2012 CBC 1413054 MCV 92.7 fL 11/29/2012 CBC 9875467 MCH 31.2 pg 11/29/2012 CBC 2138587 MCHC 33.7 g/dL 11/29/2012 CBC 2204944 PLT 253 10e9/L 11/29/2012 CBC 4535504 MPV 11.8 fL 11/29/2012 CBC 6029385 LARA % 54.9 % 11/29/2012 CBC 9651533 LY % 29.0 % 11/29/2012 CBC 0024865 MON % 10.4 % 11/29/2012 CBC 2245142 EOS % 5.1 % 11/29/2012 CBC 6219960 BASO % 0.6 % 11/29/2012 CBC 7799417 RDW 13.8 % 11/29/2012 CBC 3657692 ABS LARA 4.61 10e9/L 11/29/2012 CBC 2932260 ABS LYMPH 2.44 10e9/L 11/29/2012 CBC 6597332 ABS MONO 0.87 10e9/L 11/29/2012 CBC 6793769 ABS EOS 0.43 10e9/L 11/29/2012 CBC 1010096 ABS BASO 0.05 10e9/L 11/29/2012 CBC 9155166 RDW-SD 45.9 fL 11/29/2012 CHEM 14 0340617 AST 25 U/L 11/29/2012 CHEM 14 0346249 ALT 26 IU/L 11/29/2012 CHEM 14 3625199 BUN 25 MG/DL 11/29/2012 CHEM 14 7178951 ALBUMIN 4.4 GM/DL 11/29/2012 CHEM 14 1776703 CHLORIDE 106 MMOL/L 11/29/2012 CHEM 14 2580129 BILI TOT 0.4 MG/DL 11/29/2012 CHEM 14 8217995 ALK PHOS 86 U/L 11/29/2012 CHEM 14 9078878 SODIUM 141 MMOL/L 11/29/2012 CHEM 14 6555046 CREATININE 0.80 MG/DL 11/29/2012 CHEM 14 2186869 CALCIUM 9.7 MG/DL 11/29/2012 CHEM 14 7148356 POTASSIUM 4.0 MMOL/L 11/29/2012 CHEM 14 9319914 PROT TOT 6.6 GM/DL 11/29/2012 CHEM 14 4065510 GLUCOSE 112 MG/DL 11/29/2012 CHEM 14 3091519 BICARB 29 MMOL/L 11/29/2012 CHEM 14 8623583 ANION GAP 6 MEQ/L 11/29/2012 A1C HPLC 0591232 A1C HPLC 17975-4 5.5 % 11/29/2012 LIPID GRP HDL TEST 54 MG/DL 11/29/2012 LIPID GRP TRIG 77 MG/DL 11/29/2012 LIPID GRP TEST LDL 78 MG/DL 11/29/2012 LIPID GRP CHOL 147 MG/DL 11/29/2012 LIPID GRP RCHOL/HDL 2.72 RATIO 11/29/2012 FREE T4 6108780 FREE T4 1.23 NG/DL 11/29/2012 GFR CALC 2093465 GFR AA >60 ML/MIN 11/29/2012 GFR CALC 9054768 GFR NON-AA >60 ML/MIN 11/29/2012 CHEM 14 5514648 AST 23 U/L 08/07/2012 CHEM 14 1666861 ALT 34 IU/L 08/07/2012 CHEM 14 4151243 BUN 26 MG/DL 08/07/2012 CHEM 14 9524293 ALBUMIN 4.4 GM/DL 08/07/2012 CHEM 14 5885170 CHLORIDE 105 MMOL/L 08/07/2012 CHEM 14 8179680 BILI TOT 0.5 MG/DL 08/07/2012 CHEM 14 9277947 ALK PHOS 79 U/L 08/07/2012 CHEM 14 7353020 SODIUM 140 MMOL/L 08/07/2012 CHEM 14 5699920 CREATININE 0.71 MG/DL 08/07/2012 CHEM 14 7805999 CALCIUM 10.4 MG/DL 08/07/2012 CHEM 14 4969162 POTASSIUM 3.8 MMOL/L 08/07/2012 CHEM 14 6845896 PROT TOT 6.8 GM/DL 08/07/2012 CHEM 14 1826231 GLUCOSE 104 MG/DL 08/07/2012 CHEM 14 5180675 BICARB 27 MMOL/L 08/07/2012 CHEM 14 1281851 ANION GAP 8 MEQ/L 08/07/2012 A1C HPLC 1697774 A1C HPLC 01910-2 5.4 % 08/07/2012 FREE T4 3151828 FREE T4 1.11 NG/DL 08/07/2012 LIPID GRP HDL TEST 50 MG/DL 08/07/2012 LIPID GRP TRIG 127 MG/DL 08/07/2012 LIPID GRP TEST LDL 93 MG/DL 08/07/2012 LIPID GRP CHOL 168 MG/DL 08/07/2012 LIPID GRP RCHOL/HDL 3.36 RATIO 08/07/2012 CBC 3619304 WBC 8.7 10e9/L 08/07/2012 CBC 9932467 RBC 4.67 10e12/L 08/07/2012 CBC 0624323 HGB 14.4 g/dL 08/07/2012 CBC 1807522 HCT DET 42.8 % 08/07/2012 CBC 9443636 MCV 91.6 fL 08/07/2012 CBC 6617597 MCH 30.8 pg 08/07/2012 CBC 8135204 MCHC 33.6 g/dL 08/07/2012 CBC 1571191 PLT 271 10e9/L 08/07/2012 CBC 0978644 MPV 12.3 fL 08/07/2012 CBC 5857427 LARA % 50.6 % 08/07/2012 CBC 0301314 LY % 34.9 % 08/07/2012 CBC 8396612 MON % 9.1 % 08/07/2012 CBC 7914743 EOS % 5.1 % 08/07/2012 CBC 8519424 BASO % 0.3 % 08/07/2012 CBC 9032198 RDW 13.6 % 08/07/2012 CBC 4261598 ABS LARA 4.40 10e9/L 08/07/2012 CBC 5132950 ABS LYMPH 3.04 10e9/L 08/07/2012 CBC 7189120 ABS MONO 0.79 10e9/L 08/07/2012 CBC 5983622 ABS EOS 0.44 10e9/L 08/07/2012 CBC 0866625 ABS BASO 0.03 10e9/L 08/07/2012 CBC 7030586 RDW-SD 44.1 fL 08/07/2012 TSH 2028389 TSH 7.419 uIU/ML 08/07/2012 GFR CALC 6836248 GFR AA >60 ML/MIN 08/07/2012 GFR CALC 2754021 GFR NON-AA >60 ML/MIN 08/07/2012 A1C HPLC 8587217 A1C HPLC 05815-6 5.3 % 02/21/2012 TSH 0382801 TSH 0.832 uIU/ML 02/16/2012 FREE T4 9054845 FREE T4 1.04 NG/DL 02/16/2012 GFR CALC 0230744 GFR AA >60 ML/MIN 02/16/2012 GFR CALC 6729793 GFR NON-AA >60 ML/MIN 02/16/2012 BMP 1225747 GLUCOSE 112 MG/DL 02/16/2012 BMP 9208006 CREATININE 0.65 MG/DL 02/16/2012 BMP 0170882 BUN 17 MG/DL 02/16/2012 BMP 1538941 SODIUM 144 MMOL/L 02/16/2012 BMP 4857867 POTASSIUM 4.0 MMOL/L 02/16/2012 BMP 8052410 CHLORIDE 107 MMOL/L 02/16/2012 BMP 0934042 BICARB 29 MMOL/L 02/16/2012 BMP 3240350 ANION GAP 8 MEQ/L 02/16/2012 BMP 2505623 CALCIUM 9.5 MG/DL 02/16/2012 CBC 7042064 WBC 7.1 10e9/L 02/16/2012 CBC 1894968 RBC 4.47 10e12/L 02/16/2012 CBC 6615490 HGB 13.5 g/dL 02/16/2012 CBC 2438374 HCT DET 40.7 % 02/16/2012 CBC 3773297 MCV 91.1 fL 02/16/2012 CBC 4442899 MCH 30.2 pg 02/16/2012 CBC 9687253 MCHC 33.2 g/dL 02/16/2012 CBC 0622634 PLT 238 10e9/L 02/16/2012 CBC 0755746 MPV 11.4 fL 02/16/2012 CBC 2704129 LARA % 55.7 % 02/16/2012 CBC 0620642 LY % 29.6 % 02/16/2012 CBC 0974847 MON % 9.2 % 02/16/2012 CBC 9432723 EOS % 5.1 % 02/16/2012 CBC 0186398 BASO % 0.4 % 02/16/2012 CBC 2177588 RDW 13.0 % 02/16/2012 CBC 5843086 ABS LARA 3.95 10e9/L 02/16/2012 CBC 3195907 ABS LYMPH 2.10 10e9/L 02/16/2012 CBC 1811216 ABS MONO 0.65 10e9/L 02/16/2012 CBC 1006126 ABS EOS 0.36 10e9/L 02/16/2012 CBC 2030006 ABS BASO 0.03 10e9/L 02/16/2012 CBC 9054533 RDW-SD 42.4 fL 02/16/2012 URINALYSIS NONAUTO W/O SCOPE 18080 Specific [place] 1.015 DateTime(Free Text in Aprima) URINALYSIS NONAUTO W/O SCOPE 37537 PH 7 DateTime(Free Text in [employer]) URINALYSIS NONAUTO W/O SCOPE 17463 GLUCOSE neg DateTime(Free Text in Apr[employer]) URINALYSIS NONAUTO W/O SCOPE 21754 Protein 1+ DateTime(Free Text in Apr[employer]) URINALYSIS NONAUTO W/O SCOPE 27785 Blood neg DateTime(Free Text in Aprima) URINALYSIS NONAUTO W/O SCOPE 82922 Bilirubin neg DateTime(Free Text in Apr[employer]) URINALYSIS NONAUTO W/O SCOPE 91695 Ketones neg DateTime(Free Text in Apr[employer]) URINALYSIS NONAUTO W/O SCOPE 99428 Urobilinogen neg DateTime(Free Text in Apr[employer]) URINALYSIS NONAUTO W/O SCOPE 19820 Nitrite postive DateTime(Free Text in Apr[employer]) URINALYSIS NONAUTO W/O SCOPE 36531 Leukocytes 3+ DateTime(Free Text in Apr[employer]) URINALYSIS NONAUTO W/O SCOPE 16302 Specific [place] 1.030 DateTime(Free Text in Aprima) URINALYSIS NONAUTO W/O SCOPE 44236 PH 6 DateTime(Free Text in Apr[employer]) URINALYSIS NONAUTO W/O SCOPE 58315 GLUCOSE neg DateTime(Free Text in Aprima) URINALYSIS NONAUTO W/O SCOPE 56743 Protein neg DateTime(Free Text in Aprima) URINALYSIS NONAUTO W/O SCOPE 57006 Blood neg DateTime(Free Text in Aprima) URINALYSIS NONAUTO W/O SCOPE 97716 Bilirubin neg DateTime(Free Text in Apr[employer]) URINALYSIS NONAUTO W/O SCOPE 62145 Ketones neg DateTime(Free Text in Aprima) URINALYSIS NONAUTO W/O SCOPE 22407 Urobilinogen neg DateTime(Free Text in Apr[employer]) URINALYSIS NONAUTO W/O SCOPE 35364 Nitrite neg DateTime(Free Text in Apr[employer]) URINALYSIS NONAUTO W/O SCOPE 97822 Leukocytes trace DateTime(Free Text in Aprima) URINALYSIS NONAUTO W/O SCOPE 59585 Specific [place] 1.005 DateTime(Free Text in Aprima) URINALYSIS NONAUTO W/O SCOPE 83066 PH 5 DateTime(Free Text in Apr[employer]) URINALYSIS NONAUTO W/O SCOPE 93641 GLUCOSE neg DateTime(Free Text in Aprima) URINALYSIS NONAUTO W/O SCOPE 85525 Protein neg DateTime(Free Text in Aprima) URINALYSIS NONAUTO W/O SCOPE 14224 Blood neg DateTime(Free Text in Aprima) URINALYSIS NONAUTO W/O SCOPE 13820 Bilirubin neg DateTime(Free Text in Aprima) URINALYSIS NONAUTO W/O SCOPE 38064 Ketones neg DateTime(Free Text in Aprima) URINALYSIS NONAUTO W/O SCOPE 74901 Urobilinogen neg DateTime(Free Text in Aprima) URINALYSIS NONAUTO W/O SCOPE 44970 Nitrite neg DateTime(Free Text in Aprima) URINALYSIS NONAUTO W/O SCOPE 53090 Leukocytes neg DateTime(Free Text in Aprima) UA 06943 Specific [place] 1.030 DateTime(Free Text in Aprima) UA 63201 PH 5 DateTime(Free Text in Aprima) UA 17578 GLUCOSE neg DateTime(Free Text in Aprima) UA 08525 Protein trace DateTime(Free Text in Aprima) UA 00524 Blood large DateTime(Free Text in Aprima) UA 97180 Bilirubin neg DateTime(Free Text in ) UA 15775 Ketones neg DateTime(Free Text in ) UA 91731 Urobilinogen neg DateTime(Free Text in ) UA 31008 Nitrite neg DateTime(Free Text in ) UA 26874 Leukocytes large DateTime(Free Text in ) Review [...] nourished 06/05/2014 None Full Exam - General 1995 Psychiatric [...] Procedure Codes Date DESTRUCT PREMALG LESION CPT-4: 10998Zbogkgj 12/05/2016 DESTRUCT PREMALG LES 2-14 CPT-4: 11014Prdweak 12/05/2016 URINALYSIS NONAUTO W/O SCOPE CPT-4: 90706Mykatgi 11/28/2016 ROCEPHIN, PER 250 MG CPT-4: X8036Ruespon 11/28/2016 PPPS, SUBSEQ VISIT CPT-4: N4317Esmowqg 11/07/2016 THER/PROPH/DIAG INJ SC/IM CPT-4: 87549Rsgresg 11/07/2016 TRIAMCINOLONE ACET INJ NOS CPT-4: D0456Qwtuogf 11/07/2016 ROCEPHIN, PER 250 MG CPT-4: M2123Idwjwqi 11/07/2016 THER/PROPH/DIAG INJ SC/IM CPT-4: 91057Fghpdfp 08/15/2016 TRIAMCINOLONE ACET INJ NOS CPT-4: Q3819Ozelnhz 08/15/2016 ROCEPHIN, PER 250 MG CPT-4: B9879Kcgopdz 08/15/2016 URINALYSIS NONAUTO W/O SCOPE CPT-4: 25545Qqrcnoy 05/05/2016 ROCEPHIN, PER 250 MG CPT-4: Z6506Ogvkzkl 12/07/2015 TRIAMCINOLONE ACET INJ NOS CPT-4: W9171Dspthol 11/24/2015 ROCEPHIN, PER 250 MG CPT-4: P4111Zklgfdj 11/24/2015 THER/PROPH/DIAG INJ SC/IM CPT-4: 22292Odrrjyz 11/24/2015 THER/PROPH/DIAG INJ SC/IM CPT-4: 59666Pibiicu 08/27/2015 KETOROLAC TROMETHAMINE INJ CPT-4: N6773Rugevla 08/27/2015 PROMETHAZINE HCL INJECTION CPT-4: G8555Btwbqcb 08/27/2015 THER/PROPH/DIAG INJ SC/IM CPT-4: 20539Aejpzjs 08/10/2015 TRIAMCINOLONE ACET INJ NOS CPT-4: L2255Ctyzfzm 08/10/2015 ROCEPHIN, PER 250 MG CPT-4: D3260Cpwzurg 08/10/2015 C WOUN RTS (CULTURE OTHR SPECIMN AEROBIC) CPT-4: 38957Cpfmxjf 07/28/2015 THER/PROPH/DIAG INJ SC/IM CPT-4: 33154Wtwjyvo 03/19/2015 TRIAMCINOLONE ACET INJ NOS CPT-4: V5290Ogsgdbo 03/19/2015 ROCEPHIN, PER 250 MG CPT-4: O8909Djvxblr 06/23/2014 TRIAMCINOLONE ACET INJ NOS CPT-4: U7328Kegzwvd 06/23/2014 INJ TRIGGER POINT 1/2 MUSCL CPT-4: 89422Psyvijd 06/05/2014 URINALYSIS NONAUTO W/O SCOPE CPT-4: 87684Biwipnn 02/11/2014 URINALYSIS NONAUTO W/O SCOPE CPT-4: 71724Ctwpxat 10/15/2013 ROCEPHIN, PER 250 MG CPT-4: Y5309Kvknpzx 09/24/2013 THER/PROPH/DIAG INJ SC/IM CPT-4: 93314Riesxyx 09/19/2013 ROCEPHIN, PER 250 MG CPT-4: P1261Yszoqtc 09/19/2013 PRESCRIP TRANSMIT VIA ERX SY CPT-4: J5900Axtoldv 08/05/2013 ROCE[place]IN, PER 250 MG CPT-4: K2104Vlgihew 07/10/2013 THER/PROPH/DIAG INJ SC/IM CPT-4: 37468Urbpuij 07/10/2013 TRIAMCINOLONE ACET INJ NOS CPT-4: F3071Geoobao 07/10/2013 PRESCRIP TRANSMIT VIA ERX SY CPT-4: O2221Itenoru 07/10/2013 29191 EST. PATIENT, LEVEL III CPT-4: 52353Wttphxk 06/03/2013 PRESCRIP TRANSMIT VIA ERX SY CPT-4: O2981Qlqilbf 06/03/2013 PRESCRIP TRANSMIT VIA ERX SY CPT-4: J7656Acqywkc 05/07/2013 ROUTINE VENIPUNCTURE CPT-4: 21813Ljhbrve 04/30/2013 ROUTINE VENIPUNCTURE CPT-4: 39199Yduuuzm 11/29/2012 TRIAMCINOLONE ACET INJ NOS CPT-4: M0111Gnuhven 09/24/2012 THER/PROPH/DIAG INJ SC/IM CPT-4: 74816Wdciggb 09/24/2012 URINALYSIS NONAUTO W/O SCOPE CPT-4: 96570Iuvmfwh 09/24/2012 PRESCRIP TRANSMIT VIA ERX SY CPT-4: G6117Jfpdhtu 09/24/2012 PRESCRIP TRANSMIT VIA ERX SY CPT-4: A5657Awouvas 09/10/2012 PRESCRIP TRANSMIT VIA ERX SY CPT-4: R8180Vwhtkka 08/08/2012 ROUTINE VENIPUNCTURE CPT-4: 63202Dqveoqj 08/07/2012 ROUTINE VENIPUNCTURE CPT-4: 48176Pspcjpd 02/16/2012 URINALYSIS NONAUTO W/O SCOPE CPT-4: 10582Mcqmqkt 02/15/2012 ROCEPHIN, PER 250 MG CPT-4: A7623Ngapyhg 02/15/2012 PRESCRIP TRANSMIT VIA ERX SY CPT-4: N1444Cgmducu 02/15/2012 ROUTINE VENIPUNCTURE CPT-4: 40733Rhrnirg 11/08/2011 ROCEPHIN, PER 250 MG CPT-4: U9557Txpdhmj 07/14/2011 THER/PROPH/DIAG INJ SC/IM CPT-4: 12220Vlgkuiy 07/14/2011 Influenza Virus Vaccine, Split Virus, >3 Yrs, IM CPT-4: 24550Mwsmfbe 05/23/2011 IMMUNIZATION ADMIN CPT-4: 89586Zmgpdaw 05/23/2011 THER/PROPH/DIAG INJ SC/IM CPT-4: 24129Eoqtmwu 05/03/2011 ROCEPHIN, PER 250 MG CPT-4: O0458Adzwztv 05/03/2011 TRIAMCINOLONE ACET INJ NOS CPT-4: R0322Axcdabl 05/03/2011 Vital Signs Date Vital 02/06/2017 Blood Pressure 1: 138/90 Code: 8480-6 BMI: 31.5 Code: 60914-1 Heart Rate 1: 61 bpm Height: 4'11" SpO2: 98% Weight: 156 lbs 12/05/2016 Blood Pressure 1: 122/72 Code: 8480-6 Heart Rate 1: 59 bpm Height: 4'11" SpO2: 98% Weight: 11/28/2016 Blood Pressure 1: 154/86 Code: 8480-6 BMI: 31.3 Code: 73863-8 Heart Rate 1: 64 bpm Height: 4'11" SpO2: 94% Temperature: 36.2 (C) / 97.2 (F) Weight: 155 lbs 11/07/2016 Blood Pressure 1: 128/64 Code: 8480-6 BMI: 31.5 Code: 33198-9 Heart Rate 1: 59 bpm Height: 4'11" SpO2: 97% Weight: 156 lbs 08/15/2016 Blood Pressure 1: 110/62 Code: 8480-6 BMI: 31.5 Code: 11462-7 Heart Rate 1: 76 bpm Height: 4'11" SpO2: 97% Weight: 156 lbs 06/07/2016 Blood Pressure 1: 120/80 Code: 8480-6 BMI: 32.9 Code: 46544-5 Heart Rate 1: 63 bpm Height: 4'11" SpO2: 93% Temperature: 36.5 (C) / 97.7 (F) Weight: 163 lbs 03/15/2016 Blood Pressure 1: 90/42 Code: 8480-6 Heart Rate 1: 65 bpm SpO2: 94% 03/14/2016 Blood Pressure 1: 188/110 Code: 8480-6 Heart Rate 1: 68 bpm SpO2: 96% 02/22/2016 Blood Pressure 1: 158/80 Code: 8480-6 BMI: 32.7 Code: 53142-6 Heart Rate 1: 71 bpm Height: 4'11" SpO2: 95% Weight: 162 lbs 12/07/2015 Blood Pressure 1: 140/88 Code: 8480-6 BMI: 32.9 Code: 85580-9 Heart Rate 1: 99 bpm Height: 4'11" SpO2: 94% Temperature: 35.9 (C) / 96.6 (F) Weight: 163 lbs 11/24/2015 Blood Pressure 1: 144/78 Code: 8480-6 BMI: 33.7 Code: 05554-9 Heart Rate 1: 60 bpm Height: 4'11" SpO2: 98% Temperature: 36.6 (C) / 97.9 (F) Weight: 167 lbs 08/27/2015 Blood Pressure 1: 164/82 Code: 8480-6 BMI: 32.3 Code: 15564-7 Heart Rate 1: 60 bpm Height: 4'11" SpO2: 93% Weight: 160 lbs 08/10/2015 Blood Pressure 1: 130/60 Code: 8480-6 BMI: 32.5 Code: 60787-1 Heart Rate 1: 64 bpm Height: 4'11" SpO2: 97% Weight: 161 lbs 07/28/2015 Blood Pressure 1: 124/68 Code: 8480-6 BMI: 32.5 Code: 85483-7 Heart Rate 1: 69 bpm Height: 4'11" SpO2: 97% Weight: 161 lbs 06/11/2015 Blood Pressure 1: 148/80 Code: 8480-6 BMI: 32.9 Code: 55790-7 Heart Rate 1: 70 bpm Height: 4'11" SpO2: 94% Weight: 163 lbs 03/19/2015 Blood Pressure 1: 150/102 Code: 8480-6 Blood Pressure 2: 152/92 Code: 8480-6 BMI: 32.5 Code: 36856-4 Heart Rate 1: 71 bpm Height: 4'11" SpO2: 96% Weight: 161 lbs 01/07/2015 Blood Pressure 1: 126/84 Code: 8480-6 Heart Rate 1: 80 bpm Height: 4'11" 09/23/2014 Blood Pressure 1: 112/72 Code: 8480-6 BMI: 33.9 Code: 01747-7 Heart Rate 1: 72 bpm Height: 4'11" Weight: 168 lbs 08/05/2014 Blood Pressure 1: 140/86 Code: 8480-6 BMI: 33.3 Code: 32329-3 Height: 4'11" Weight: 165 lbs 06/23/2014 Blood Pressure 1: 132/70 Code: 8480-6 BMI: 32.9 Code: 62402-4 Heart Rate 1: 58 bpm Height: 4'11" Temperature: 36.0 (C) / 96.8 (F) Weight: 163 lbs 06/05/2014 Blood Pressure 1: 121/85 Code: 8480-6 BMI: 34.3 Code: 53728-0 Height: 4'11" Weight: 170 lbs 04/03/2014 Blood Pressure 1: 128/80 Code: 8480-6 Heart Rate 1: 88 bpm Weight: 167 lbs 03/07/2014 Blood Pressure 1: 122/82 Code: 8480-6 BMI: 33.9 Code: 66083-2 Heart Rate 1: 68 bpm Height: 4'11" Weight: 168 lbs 11/21/2013 Blood Pressure 1: 100/58 Code: 8480-6 BMI: 33.7 Code: 74181-2 Heart Rate 1: 64 bpm Height: 4'11" Weight: 167 lbs 09/24/2013 Blood Pressure 1: 148/88 Code: 8480-6 Heart Rate 1: 68 bpm Weight: 09/19/2013 Blood Pressure 1: 120/80 Code: 8480-6 BMI: 33.9 Code: 98669-0 Heart Rate 1: 80 bpm Height: 4'11" Temperature: 36.9 (C) / 98.5 (F) Weight: 168 lbs 08/05/2013 Blood Pressure 1: 128/80 Code: 8480-6 BMI: 34.3 Code: 16444-2 Heart Rate 1: 64 bpm Height: 4'11" Temperature: 36.2 (C) / 97.2 (F) Weight: 170 lbs 07/10/2013 Blood Pressure 1: 120/84 Code: 8480-6 BMI: 36.0 Code: 36790-8 Heart Rate 1: 90 bpm Height: 4'11" SpO2: 97% Temperature: 36.8 (C) / 98.2 (F) Weight: 178 lbs 06/03/2013 Blood Pressure 1: 136/94 Code: 8480-6 BMI: 34.7 Code: 59462-6 Heart Rate 1: 68 bpm Height: 4'11" Temperature: 36.7 (C) / 98.0 (F) Weight: 172 lbs 05/13/2013 Blood Pressure 1: 132/90 Code: 8480-6 Heart Rate 1: 68 bpm 05/07/2013 Blood Pressure 1: 168/100 Code: 8480-6 BMI: 34.3 Code: 02517-7 Heart Rate 1: 76 bpm Height: 4'11" Weight: 170 lbs 12/03/2012 Blood Pressure 1: 142/78 Code: 8480-6 BMI: 33.5 Code: 29324-7 Heart Rate 1: 76 bpm Height: 4'11" Weight: 166 lbs 09/24/2012 Blood Pressure 1: 116/70 Code: 8480-6 Heart Rate 1: 68 bpm Respiratory Rate: 16 bpm Temperature: 36.9 (C) / 98.4 (F) Weight: 162 lbs 09/10/2012 Blood Pressure 1: 116/80 Code: 8480-6 BMI: 33.7 Code: 01332-9 Heart Rate 1: 76 bpm Height: 4'11" [...] 1: 149/85 Code: 8480-6 BMI: 32.9 Code: 88018-3 Heart Rate 1: 79 bpm Height: 4'11" Weight: 164 lbs 05/03/2011 Blood Pressure 1: 122/79 Code: 8480-6 BMI: 30.8 Code: 59036-3 Heart Rate 1: 72 bpm Height: 5'1" Weight: 163 lbs 04/25/2011 Blood Pressure 1: 137/84 Code: 8480-6 BMI: 31.0 Code: 68158-3 Heart Rate 1: 63 bpm Height: 5'1" [...] surg in december. then took trip to [facility] to see mother and has had [...] Quality chronic 08/01/2011 states went shopping on [employer] over night without taking any of medications [...] data Encounters Encounter Performer Location Codes Date ([id number]) 26923 EST. PATIENT, LEVEL IV Diagnosis: Generalized anxiety disorder[ICD10: F41.1] Diagnosis: Major depressive disorder, recurrent, moderate[ICD10: F33.1] Diagnosis: Left upper quadrant pain[ICD10: R10.12] Diagnosis: Epigastric pain[ICD10: R10.13] Diagnosis: Actinic keratosis[ICD10: L57.0] Melba Goldman MD, [facility] [place] CPT-4: 93479 02/06/2017 [id number]) 20641 EST. PATIENT, LEVEL III Diagnosis: Actinic keratosis[ICD10: L57.0] Diagnosis: Major depressive disorder, recurrent, moderate[ICD10: F33.1] Melba Goldman MD, [facility] [place] CPT-4: 63002 12/05/2016 [id number] 47303 EST. PATIENT, LEVEL III Diagnosis: Acute recurrent maxillary sinusitis[ICD10: J01.01] Diagnosis: Dysuria[ICD10: R30.0] Shahida Goldman MD, [facility] [place] CPT-4: 75185 11/28/2016 90129 EST. PATIENT, LEVEL IV Diagnosis: Other acute sinusitis[ICD10: J01.80] Diagnosis: Acute laryngopharyngitis[ICD10: J06.0] Diagnosis: Other allergic rhinitis[ICD10: J30.89] Isabelle Goldman MD, [facility] [place] CPT- 4: 47949 08/15/2016 ([id number]) 70656 EST. PATIENT, LEVEL III Diagnosis: Acute recurrent maxillary sinusitis[ICD10: J01.01] Diagnosis: Low back pain[ICD10: M54.5] Shahida Goldman MD, [facility] [place] CPT-4: 88940 06/07/2016 ([id number]) Miscellaneous no charge Diagnosis: Essential (primary) hypertension[ICD10: I10] Shahida Goldman MD, [facility] [place] CPT-4: 25275 03/15/2016 28268 EST. PATIENT, LEVEL IV Diagnosis: Essential (primary) hypertension[ICD10: I10] Diagnosis: Headache[ICD10: R51] Diagnosis: Generalized anxiety disorder[ICD10: F41.1] Shahida Goldman MD, [facility] [place] CPT-4: 70784 03/14/2016 29834 EST. PATIENT, LEVEL III Diagnosis: Laceration without foreign body, left lower leg, initial encounter[ICD10: S81.812A] Isabelle Goldman MD, [facility] [place] CPT-4: 54069 02/22/2016 ([id number]) 79629 EST. PATIENT, LEVEL III Diagnosis: Acute recurrent maxillary sinusitis[ICD10: J01.01] Diagnosis: Cough[ICD10: R05] Diagnosis: Allergic rhinitis due to pollen[ICD10: J30.1] Shahida Goldman MD, [facility] [place] CPT-4: 79791 12/07/2015 ([id number]) 78525 EST. PATIENT, LEVEL IV Diagnosis: Essential (primary) hypertension[ICD10: I10] Diagnosis: Acute recurrent maxillary sinusitis[ICD10: J01.01] Diagnosis: Generalized anxiety disorder[ICD10: F41.1] Diagnosis: Cervicalgia[ICD10: M54.2] Diagnosis: Generalized intra-abdominal and pelvic swelling, mass and lump[ICD10: R19.07] Melba Goldman MD, [facility] [place] CPT-4: 19541 11/24/2015 24906 EST. PATIENT, LEVEL III Diagnosis: Other migraine, intractable, without status migrainosus[ICD10: G43.819] Isabelle Goldman MD, [facility] [place] CPT-4: 07594 08/27/2015 39254 EST. PATIENT, LEVEL III Diagnosis: Acute recurrent maxillary sinusitis[ICD10: J01.01] Diagnosis: Candidal stomatitis[ICD10: B37.0] Diagnosis: Acute laryngopharyngitis[ICD10: J06.0] Isabelle Goldman MD, [facility] [place] CPT- 4: 21058 08/10/2015 44385 EST. PATIENT, LEVEL III Diagnosis: Superficial foreign body of left hand, initial encounter[ICD10: S60.552A] Melba Goldman MD, [facility] [place] CPT-4: 05953 07/28/2015 ([id number]) 62326 EST. PATIENT, LEVEL III Diagnosis: Essential (primary) hypertension[ICD10: I10] Diagnosis: Tinea cruris[ICD10: B35.6] Diagnosis: Abnormal levels of other serum enzymes[ICD10: R74.8] Shahida Goldman MD, [facility] [place] CPT-4: 08307 06/11/2015 ([id number]) 30001 EST. PATIENT, LEVEL IV Diagnosis: ESSENTIAL HYPERTENSION[ICD9: 401.9] Diagnosis: Hypothyroid[ICD9: 244.9] Diagnosis: ALLERGIC RHINITIS[ICD9: 477.9] Diagnosis: Anxiety[ICD9: 300.00] Diagnosis: Sleep apnea[ICD9: 780.57] Shahida Goldman MD, [facility] [place] CPT-4: 33565 03/19/2015 ([id number]) 83632 EST. PATIENT, LEVEL III Diagnosis: ACUTE SINUSITIS[ICD9: 461.9] Celi Goldman MD, [facility] [place] CPT-4: 29012 01/07/2015 ([id number]) 77651 EST. PATIENT, LEVEL III Diagnosis: Conjunctivitis[ICD9: 372.30] Shahida Goldman MD, [facility] [place] CPT-4: 45848 09/23/2014 72848 EST. PATIENT, LEVEL II Diagnosis: Noninfected skin tear of leg[ICD9: 891.0] Shahida Goldman MD, [facility] [place] CPT-4: 02396 08/05/2014 ([id number]) 86688 EST. PATIENT, LEVEL III Diagnosis: Chronic maxillary sinusitis[ICD9: 473.0] Shahida Goldman MD, [facility] [place] CPT-4: 71742 06/23/2014 [id number] EST. PATIENT, LEVEL II Diagnosis: Headache[ICD9: 784.0] Shahida Goldman MD, [facility] [place] CPT-4: 93819 06/05/2014 ([id number]) 62720 EST. PATIENT, LEVEL III Diagnosis: Abrasion of right leg[ICD9: 916.0] Diagnosis: Headache[ICD9: 784.0] Diagnosis: ALLERGIC RHINITIS[ICD9: 477.9] Shahida Goldman MD, [facility] [place] CPT-4: 10558 04/03/2014 [id number] EST. PATIENT, LEVEL II Diagnosis: Tinea corporis[ICD9: 110.5] Diagnosis: Exposure to scabies[ICD9: V01.89] Shahida Goldman MD, [facility] [place] CPT- 4: 33152 03/07/2014 ([id number]) 28141 EST. PATIENT, LEVEL III Diagnosis: ESSENTIAL HYPERTENSION[SNOMED: 81385325] Diagnosis: OSTEOARTH NOS-UNSPEC[ICD9: 715.90] Diagnosis: Lumbago[ICD9: 724.2] Diagnosis: Cervicalgia[ICD9: 723.1] Shahida Goldman MD, [facility] [place] CPT-4: 35860 11/21/2013 ([id number]) 89014 EST. PATIENT, LEVEL III Diagnosis: DEPRESSIVE DISORDER NEC[ICD9: 311] Diagnosis: Paronychia[ICD9: 681.9] Melba Goldman MD, [facility] [place] CPT-4: 76830 09/24/2013 ([id number]) 36248 EST. PATIENT, LEVEL III Diagnosis: Paronychia[ICD9: 681.9] Diagnosis: Cellulitis[ICD9: 682.9] Melba Goldman MD, [facility] [place] CPT-4: 72804 09/19/2013 ([id number]) 82182 EST. PATIENT, LEVEL III Diagnosis: Conjunctivitis[ICD9: 372.30] Diagnosis: Thrush[ICD9: 112.0] Shahida Goldman MD, [facility] [place] CPT-4: 21117 08/05/2013 ([id number]) 29580 EST. PATIENT, LEVEL III Diagnosis: ACUTE MAXILLARY SINUSITIS[ICD9: 461.0] Diagnosis: COUGH[ICD9: 786.2] Diagnosis: Insomnia[ICD9: 780.52] Diagnosis: ESOPHAGEAL REFLUX[ICD9: 530.81] Melba Goldman MD [facility] [place] CPT-4: 73440 07/10/2013 ([id number]) Miscellaneous no charge Diagnosis: ESSENTIAL HYPERTENSION[SNOMED: 17507119] Melba Goldman MD [facility] [place] CPT-4: 85850 05/13/2013 ([id number]) 75985 EST. PATIENT, LEVEL IV Diagnosis: ESSENTIAL HYPERTENSION[SNOMED: 13396651] Diagnosis: HYPOTHYROIDISM[ICD9: 244.9] Diagnosis: OSTEOARTH NOS-UNSPEC[ICD9: 715.90] Melba Goldman MD [facility] [place] CPT- 4: 73684 05/07/2013 ([id number]) 91391 EST. PATIENT, LEVEL IV Diagnosis: Osteoarthritis[ICD9: 715.90] Diagnosis: Knee pain, bilateral[ICD9: 719.46] Diagnosis: Hip pain[ICD9: 719.45] Melba Goldman MD [facility] [place] CPT-4: 25623 12/03/2012 ([id number]) 82683 EST. PATIENT, LEVEL III Diagnosis: Thrush[ICD9: 112.0] Melba Goldman MD [facility] [place] CPT-4: 43717 09/24/2012 ([id number]) 78840 EST. PATIENT, LEVEL IV Diagnosis: ESSENTIAL HYPERTENSION[SNOMED: 29480818] Diagnosis: Thrush[ICD9: 112.0] Diagnosis: Sleep apnea[ICD9: 780.57] Melba Goldman MD [facility] [place] CPT-4: 34470 09/10/2012 ([id number]) 41879 EST. PATIENT, LEVEL IV Diagnosis: Esophageal reflux[ICD9: 530.81] Diagnosis: Hypothyroid[ICD9: 244.9] Diagnosis: JOINT PAIN-MULT JOINTS[ICD9: 719.49] Diagnosis: ALLERGIC RHINITIS[ICD9: 477.9] Melba Goldman MD [facility] [place] CPT-4: 50559 08/08/2012 ([id number]) 66161 EST. PATIENT, LEVEL IV Diagnosis: Urinary frequency[ICD9: 788.41] Diagnosis: EDEMA[ICD9: 782.3] Diagnosis: HYPOTHYROIDISM[ICD9: 244.9] Diagnosis: Fatigue[ICD9: 780.79] Melba Goldman MD, [facility] CPT-4: 06849 02/15/2012 ([id number]) 74601 EST. PATIENT, LEVEL IV Diagnosis: Abdominal pain[ICD9: 789.00] Diagnosis: Fatigue[ICD9: 780.79] Diagnosis: Nausea[ICD9: 787.02] Melba Goldman MD, [facility] CPT-4: 52192 11/10/2011 81478 EST. PATIENT, LEVEL IV Diagnosis: ESSENTIAL HYPERTENSION[SNOMED: 40677477] Diagnosis: DIARRHEA[ICD9: 787.91] Diagnosis: DEPRESSIVE DISORDER NEC[ICD9: 311] Diagnosis: Irritable bowel disease[ICD9: 564.1] Melba Goldman MD, [facility] CPT- 4: 85159 08/01/2011 [id number] EST. PATIENT, LEVEL III Diagnosis: ACUTE SINUSITIS[ICD9: 461.9] Diagnosis: Cough[ICD9: 786.2] Shahida Goldman MD, [facility] CPT-4: 92970 07/14/2011 86063 EST. PATIENT, LEVEL IV Diagnosis: VACCIN FOR INFLUENZA[ICD9: V04.81] Diagnosis: ESSENTIAL HYPERTENSION[SNOMED: 02170060] Diagnosis: GENERALIZED ANXIETY DISEASE[ICD9: 300.02] Diagnosis: SLEEP DISTURBANCES[ICD9: 780.50] Shahida Goldman MD, [facility] CPT- 4: 91180 05/23/2011 [id number] EST. PATIENT, LEVEL III Diagnosis: ACUTE SINUSITIS[ICD9: 461.9] Diagnosis: ALLERGIC RHINITIS[ICD9: 477.9] Diagnosis: Cough[ICD9: 786.2] Shahida Goldman MD, [facility] CPT-4: 42658 05/03/2011 62745 EST. PATIENT, LEVEL IV Diagnosis: ESSENTIAL HYPERTENSION[SNOMED: 00275072] Diagnosis: DEPRESSIVE DISORDER NEC[ICD9: 311] Diagnosis: Fatigue[ICD9: 780.79] Shahida Goldman MD, [facility] CPT-4: 29499 04/25/2011 Plan of Care Planned Activity Notes [...] efudex - pt instructed on use 02/06/2017 Patient Education: Patient Medication Summary Completed [...] patient. 12/05/2016 [facility]ment[phone] [facility] 12/05/2016 Patient Education: Patient Medication Summary Completed 12/05/2016 Visit Plan: Sinusitis - Pt has acute infection - pain in face, maxillary region, Pt informed to use decongestant, RX given to patient, sinus rinses also recommended. Call if symptoms do not show improvement.Dysuria-culture urine 11/28/2016 Appointment: Shahida Manzo [id number] (15 min) Moderate 11/28/2016 Patient Education: [...] of control. 11/07/2016 Appointment: Isabelle Orozco WPtel: [facility] [facility] - Annual Wellness Visit 11/07/2016 Patient [...] spray. 08/15/2016 Appointment: Isabelle Orozco WPtel: [phone] [facility] (15 min) Moderate 08/15/2016 Patient Education: [...] use. 06/07/2016 Appointment: Shahida Manzo WPtel: [phone] [phone] (10 min) Simple 06/07/2016 Patient Education: [...] today 03/14/2016 Appointment: Shahida Manzo WPtel: [phone] [phone] (15 min) Moderate 03/14/2016 Patient Education: Patient Medication Summary Completed 03/14/2016 Care Plan: COMPLETE CBC AUTOMATED LOINC : 13263-4 Pending 03/14/2016 Visit Plan: Cellulitis - The patient was instructed in appropriate wound care. The patient was instructed to use the antibiotic ointment as per RX. The patient is to call for any change in symptoms, increase in size of the lesion, increase in pain. 02/22/2016 Appointment: Isabelle Orozco WPtel: [phone] [facility] (15 min) Moderate 02/22/2016 Patient Education: [...] dai 11/24/2015 Appointment: [phone] (30 min) Complex 11/24/2015 Patient Education: Patient Medication Summary Completed 11/24/2015 Patient Education: Obesity Completed 11/24/2015 Patient Education: Hypertension Completed 11/24/2015 Patient Education: .Cervicalgia Neck Pain Completed 11/24/2015 Care Plan: Referral Order SNOMED-CT : [id number] Ordered 11/24/2015 Visit Plan: Acute Migraine - [...] to monitor 06/11/2015 Appointment: Shahida Manzo WPtel: [phone] (15 min) Moderate 06/11/2015 Patient Education: Patient [...] OFFICE Sleep apnea-patient needs new CPAP-will contact [facility] patient Pt reports that she uses [...] OFFICE Sleep apnea-patient needs new CPAP-will contact [facility] patient Pt reports that she uses [...] OFFICE Sleep apnea-patient needs new CPAP-will contact [facility] patient 03/19/2015 Appointment: (15 min) Moderate [...] Patient Medication Summary Completed 01/07/2015 Patient Education: [facility] - Saving AutoInj - 18+ - [...] Keep areas dryExposure to scabies-RX sent to [facility]. 03/07/2014 Appointment: Melba Goldman WPtel: [address] [place], [place] [phone] [place] rash 03/07/2014 Patient Education: Patient Medication [...] about change in blood pressure readings at home.Fokuiii-zflwzeshoia-busfzsrv duragesic patch-appt with Dr Ortiz for pain management 11/21/2013 Appointment: Shahida Manzo WPtel: [address] [place], [place] [phone] [place] Follow up 11/21/2013 Patient Education: Patient Medication Summary Completed 11/21/2013 Patient Education: Hypertension Completed 11/21/2013 Patient Education: .Cervicalgia Neck Pain Completed 11/21/2013 Appointment: Melba Goldman WPtel: [address] [place], [place] [phone] Other 11/19/2013 Appointment: Melba Goldman WPtel: [address] [place], [place] [phone] [place] Follow up 11/06/2013 Appointment: Melba Goldman WPtel: [phone] [facility] Lab Draw 10/15/2013 Patient Education: Patient [...] AT BEDTIME 09/24/2013 Appointment: Shahida Manzo WPtel: [facility] [address] Other 09/24/2013 Patient Education: Patient Medication Summary Completed 09/24/2013 Visit Plan: Paronychia/Cellulitis - continue with oral antibiotics as previously directed, return to clinic as previously directed, call for acute change in symptoms, worsening redness, warmth, discharge. 09/19/2013 Appointment: Melba Goldman WPtel: [facility]2 [facility] Other 09/19/2013 Patient Education: Patient Medication Summary Completed 09/19/2013 Visit Plan: Conjunctivitis - rx for eye drops/lube sent electronically to the patient's pharmacy. The patient has been instructed to cleanse affected eye with warm washcloth, then place medication into affected eye four times daily.Thrush- refill nystatin-call if symptoms do not resolve 08/05/2013 Appointment: Shahida Manzo WPtel: [facility]8 [phone] Sick 08/05/2013 Patient Education: Patient Medication [...] improvement. 06/03/2013 Appointment: [phone] Follow [facility] 06/03/2013 Patient Education: Patient Medication Summary Completed 06/03/2013 Patient Education: Hypertension Completed 06/03/2013 Appointment: [phone] [place] Nurse Visit 05/13/2013 Patient Education: [...] of control. 05/07/2013 Appointment: Melba Goldman WPtel: [facility]5 [facility] Follow up 05/07/2013 Patient Education: Patient Medication Summary Completed 05/07/2013 Patient Education: Hypertension Completed 05/07/2013 Patient Education: Patient Medication Summary Completed 04/30/2013 Patient Education: Hypertension Completed 04/30/2013 Visit Plan: Arthritis- occasionally uncontrolled symptoms- recommend pt to take antiinflammatory as directed for pain control.Use tylenol for break through pain symptoms. 12/03/2012 Appointment: Melba Goldman WPtel: [address] [place], [place] [phone] Follow up 12/03/2012 Patient Education: Patient Medication [...] resolve 09/24/2012 Appointment: Shahida Manzo [facility]Ptel: [phone] [phone] [place] [address] 09/24/2012 Patient Education: Patient Medication Summary Completed [...] diflucan 09/10/2012 Appointment: [phone] Follow up 09/10/2012 Patient Education: Patient [...] pain symptoms. 08/08/2012 Appointment: Shahida Manzo [facility]el: [phone] Follow up 08/08/2012 Patient Education: Patient Medication Summary Completed 08/08/2012 Patient Education: Patient Medication Summary Completed 08/07/2012 Patient Education: Hypertension Completed 08/07/2012 Appointment: Mel[facility] oGldman [facility]Ptel[phone] [place] Lab Draw 02/16/2012 Patient Education: [...] Needs labs. 02/15/2012 Appointment: Melba Goldman WPtel: [facility]1 [facility] Other 02/15/2012 Patient Education: Patient Medication Summary Completed 02/15/2012 Visit Plan: Abdominal pain - ultrasound tomorrow AMnothing to eat before the ultrasound from 11pm tonight bland diet.Nausea - worse with fatty foods, recommended low fat/bland diet, call if symptoms worsening. 11/10/2011 Appointment: Melba Goldman WPtel: [facility]5 [facility] Other 11/10/2011 Patient Education: Patient Medication [...] the stools. 08/01/2011 Appointment: Melba Goldman WPtel: [phone] [facility] Other 08/01/2011 Patient Education: Patient Medication Summary Completed 08/01/2011 Patient Education: High Blood Pressure: Essential Hypertension Completed 08/01/2011 Visit Plan: Sinusitis - Pt has acute infection - pain in face, maxillary region, Pt informed to use decongestant, RX given to patient, sinus rinses also recommended. Call if symptoms do not show improvement. Cough-kishore zurita 07/14/2011 Appointment: Shahida Manzo WPtel: [facility]2 [phone] [place] Other 07/14/2011 Patient Education: Patient [...] the office. 05/23/2011 Appointment: Shahida Manzo WPtel: [phone] [phone] Other 05/23/2011 Patient Education: Patient Medication [...] cough med 05/03/2011 Appointment: Shahida Manzo WPtel: [facility]8 [phone] Other 05/03/2011 Patient Education: Patient Medication [...] her symptoms. 04/25/2011 Appointment: Shahida Manzo WPtel: [phone] [place] Other 04/25/2011 Patient Education: Patient Medication Summary [...] OFFICE Sleep apnea-patient needs new CPAP-will contact [facility] patient Pt reports that she uses her [...] OFFICE Sleep apnea-patient needs new CPAP-will contact [facility] patient Pt reports that she uses [...] OFFICE Sleep apnea-patient needs new CPAP-will contact [facility] patient . Skin tear of left and [...] areas dry [facility] scabies[facility] Edarbi 40mg daily Labs now EKG [...] change in blood pressure readings at home. Nbirciz-haglywimplu-kbgvjfmn duragesic patch-appt with Dr Ortiz for pain [...]
--- OUTSIDE RECORDS SUMMARY | 2019-03-08 14:01 | XMS REPORT | CCD ---
Author Author [facility] Address [address] [place] [address] Phone Care Team Providers Care Director Safety Name Role Phone PP Unavailable CCM Unavailable Summary Purpose Interface Exchange Insurance Providers Payer name Policy type / Coverage type Covered libertarian ID Effective Begin Date Effective End Date [employer] Medicare Part B [id number] Unknown Family history Son Diagnosis Age At Onset Crohn's disease Unknown Brother Diagnosis Age At Onset Cardiovascular disease Unknown Mother Diagnosis Age At Onset Hypertension Unknown Father Diagnosis Age At Onset Cardiovascular disease Unknown Social History Social History Element Codes Description Effective Dates Marital status Unknown 04/22/2011 Number of children Unknown 3 1 son -Crohns 04/22/[address]: 335648452 Nonsmoker 04/22/2011 Allergies, Adverse Reactions, Alerts Allergies, Adverse Reactions, Alerts data not found Past Medical History Illness Codes Condition Status Onset Date Resolved Date Actinic keratosis ICD-9: 702.0 ICD-10: L57.0 Active 12/05/2016 Unknown Major depressive disorder, recurrent, moderate ICD-9: [...] ICD-9: 401.9 ICD-10: I10 Active 03/15/2016 Unknown Generalized anxiety disorder ICD-9: 300.02 ICD-10: F41.1 Active 03/13/2016 Unknown Headache ICD-9: 784.0 ICD-10: R51 Active [...] keratosis ICD-9: 702.0 ICD-10: L57.0 12/05/2016 Active Major depressive disorder, recurrent, moderate ICD-9: [...] hypertension ICD-9: 401.9 ICD-10: I10 03/15/2016 Active Generalized anxiety disorder ICD-9: 300.02 ICD-10: F41.1 03/13/2016 Active Headache ICD-9: 784.0 ICD-10: R51 03/13/2016 [...] Start Date Stop Date Status Fill Instructions Bystolic 10 mg tablet RxNorm: 659051 TAKE ONE TABLET BY MOUTH DAILY 02/03/2017 06/02/2017 Active Imitrex 50 mg tablet RxNorm: 846183 TAKE ONE TABLET BY MOUTH EVERY 8 HOURS NEEDED MAY REPEAT IN 1 HOUR OF INITIAL DOSE. DISCONTINUE FIORICET 12/22/2016 02/19/2017 Active Nexium 40 mg capsule,delayed release RxNorm: 708713 TAKE ONE CAPSULE BY MOUTH EVERY DAY 12/21/2016 09/16/2017 Active Lexapro 20 mg tablet RxNorm: 315375 Tablet(s) TAKE ONE TABLET BY MOUTH DAILY 12/05/2016 06/02/2017 Active hydrocodone 10 mg-acetaminophen 325 mg tablet RxNorm: 921635 Tablet(s) PO TAKE ONE TO TWO TABLETS BY MOUTH EVERY 6 HOURS NEEDED FOR PAIN 11/28/2016 No Stop Date Active (Appended: Controlled substance eRx refill - RxReferenceNumber: [id number]) Augmentin 875 mg-125 mg tablet RxNorm: 581461 1 Tablet(s) PO BID 11/28/2016 12/04/2016 Inactive ceftriaxone 500 mg solution for injection RxNorm: 0481624 1 Milliliter(s) Inj 11/28/2016 11/28/2016 Inactive prednisone 20 mg tablet RxNorm: 421625 2 Tablet(s) PO daily 11/28/2016 12/02/2016 Inactive Synthroid 100 mcg tablet RxNorm: 637934 1 Tablet(s) PO daily 11/21/2016 05/19/2017 Active Brand name only! trazodone 50 mg tablet RxNorm: 250744 TAKE 1 AND 1/2 TABLETS EVERY NIGHT AT BEDTIME , MAY INCREASE TO 2 TABLETS AT BEDTIME NEEDED 11/21/2016 02/16/2017 Active trazodone 50 mg tablet RxNorm: 758711 Tablet(s) TAKE 1 AND 1/2 TABLETS EVERY NIGHT AT BEDTIME , MAY INCREASE TO 2 TABLETS AT BEDTIME NEEDED 11/21/2016 11/20/2016 Inactive Synthroid 100 mcg tablet RxNorm: 207166 1 Tablet(s) PO daily TAKE ONE TABLET BY MOUTH DAILY 11/08/2016 11/20/2016 Inactive ceftriaxone 500 mg solution for injection RxNorm: 6454713 Inj 11/07/2016 11/07/2016 Inactive Kenalog 40 mg/mL suspension for injection RxNorm: 2761084 Milliliter(s) Inj 11/07/2016 11/07/2016 Inactive Xanax 0.25 mg tablet RxNorm: 238495 1 Tablet(s) PO daily as needed 10/31/2016 12/29/2016 Inactive alprazolam 0.25 mg tablet RxNorm: 915105 1 Tablet(s) PO daily as needed 10/21/2016 12/18/2016 Inactive (Response to an electronic controlled substance refill request - RxReferenceNumber: [id number]) hydrochlorothiazide 25 mg tablet RxNorm: 381959 TAKE ONE TABLET BY MOUTH DAILY 10/11/2016 04/08/2017 Active Xanax 0.25 mg tablet RxNorm: 655015 1 Tablet(s) PO daily as needed 08/23/2016 10/19/2016 Inactive Flonase Allergy Relief 50 mcg/actuation nasal spray,suspension RxNorm: 2197133 1 [place] NASAL daily 08/15/2016 No Stop Date Active amoxicillin 500 mg capsule RxNorm: 158534 1 Capsule(s) PO TID 08/15/2016 08/24/2016 Inactive Bystolic 10 mg tablet RxNorm: 929326 TAKE ONE TABLET BY MOUTH DAILY 08/01/2016 12/28/2016 Inactive trazodone 50 mg tablet RxNorm: 033440 TAKE 1 AND 1/2 TABLETS EVERY NIGHT AT BEDTIME , MAY INCREASE TO 2 TABLETS AT BEDTIME NEEDED 07/25/2016 11/11/2016 Inactive alprazolam 0.25 mg tablet RxNorm: 147719 1 Tablet(s) PO daily as needed 07/25/2016 08/22/2016 Inactive (Response to an electronic controlled substance refill request - RxReferenceNumber: [id number]) Imitrex 50 mg tablet RxNorm: 476612 1 Tablet(s) PO Q8 as needed may repeat x1 dose in 1 hour of inital dose. 07/13/2016 No Stop Date Active Lexapro 20 mg tablet RxNorm: 889525 TAKE 1/2 TABLET BY MOUTH DAILY FOR 10 DAYS, THEN TAKE ONE TABLET BY MOUTH DAILY 06/27/2016 11/23/2016 Inactive Synthroid 100 mcg tablet RxNorm: 743684 TAKE ONE TABLET BY MOUTH DAILY 06/20/2016 11/07/2016 Inactive Augmentin 500 mg-125 mg tablet RxNorm: 054737 1 Tablet(s) PO TID 06/07/2016 06/13/2016 Inactive hydrocodone 10 mg-acetaminophen 325 mg tablet RxNorm: 892768 Tablet(s) PO TAKE ONE TO TWO TABLETS BY MOUTH EVERY 6 HOURS NEEDED FOR PAIN 06/07/2016 11/27/2016 Inactive (Appended: Controlled substance eRx refill - RxReferenceNumber: [id number]) hydrochlorothiazide 25 mg tablet RxNorm: 764415 TAKE ONE TABLET BY MOUTH DAILY 03/14/2016 09/09/2016 Inactive Edarbi 40 mg tablet RxNorm: 9794065 1 Tablet(s) PO daily 03/14/2016 06/06/2016 Inactive trazodone 50 mg tablet RxNorm: 361321 Tablet(s) TAKE 1 AND 1/2 TABLET AT BEDTIME. MAY INCREASE TO 2 TABLETS IF NECESSARY 02/25/2016 07/05/2016 Inactive Imitrex 50 mg tablet RxNorm: 989758 1 Tablet(s) PO Q8 as needed may repeat x1 dose in 1 hour of inital dose. 02/25/2016 07/12/2016 Inactive dc fioricet Xanax 0.25 mg tablet RxNorm: 373527 1 Tablet(s) PO daily as needed 02/24/2016 07/21/2016 Inactive mupirocin 2 % topical ointment RxNorm: 351624 1 TOP BID 02/22/2016 No Stop Date Active Bactrim DS 800 mg-160 mg tablet RxNorm: 247788 1 Tablet(s) PO BID 02/22/2016 03/02/2016 Inactive Fioricet 50 mg-325 mg-40 mg tablet RxNorm: 585865 Tablet(s) TAKE ONE TABLET BY MOUTH EVERY 4 HOURS NEEDED FOR headache 02/12/2016 02/24/2016 Inactive (Response to an electronic controlled substance refill request - RxReferenceNumber: [id number]) Fioricet 50 mg-325 mg-40 mg tablet RxNorm: 789699 Tablet(s) TAKE ONE TABLET BY MOUTH EVERY 4 HOURS NEEDED FOR headache 02/12/2016 02/11/2016 Inactive (Response to an electronic controlled substance refill request - RxReferenceNumber: [id number]) Nexium 40 mg capsule,delayed release RxNorm: 530423 TAKE ONE CAPSULE BY MOUTH EVERY DAY 02/01/2016 10/27/2016 Inactive Bystolic 10 mg tablet RxNorm: 264548 Tablet(s) TAKE ONE TABLET BY MOUTH DAILY 01/06/2016 07/03/2016 Inactive Xanax 0.25 mg tablet RxNorm: 872842 1 Tablet(s) PO daily as needed 12/28/2015 02/23/2016 Inactive Levaquin 500 mg tablet RxNorm: 832830 1 Tablet(s) PO daily take a probiotic daily 12/14/2015 02/11/2016 Inactive Levaquin 500 mg tablet RxNorm: 308913 1 Tablet(s) PO daily take a probiotic daily 12/14/2015 12/13/2015 Inactive Phenergan with Codeine Syrup RxNorm: 5-10 Milliliter(s) PO Q6 PRN 12/07/2015 No Stop Date Active prednisone 20 mg tablet RxNorm: 188141 1 Tablet(s) PO BID 12/07/2015 12/13/2015 Inactive Augmentin 875 mg-125 mg tablet RxNorm: 176178 1 Tablet(s) PO BID 12/07/2015 12/13/2015 Inactive ceftriaxone 500 mg solution for injection RxNorm: 3467110 Inj 12/07/2015 12/07/2015 Inactive alprazolam 0.25 mg tablet RxNorm: 607382 1 Tablet(s) PO daily as needed 11/27/2015 12/25/2015 Inactive (Response to an electronic controlled substance refill request - RxReferenceNumber: [id number]) trazodone 50 mg tablet RxNorm: 236605 TAKE 1 AND 1/2 TABLET AT BEDTIME FOR 2 WEEKS, MAY INCREASE TO 2 TABLETS IF NECESSARY AFTER THAT 11/26/2015 02/24/2016 Inactive ceftriaxone 500 mg solution for injection RxNorm: 1931498 Milliliter(s) Inj 11/24/2015 11/24/2015 Inactive prednisone 10 mg tablet RxNorm: 656507 3 Tablet(s) PO daily 11/24/2015 11/28/2015 Inactive cefdinir 300 mg capsule RxNorm: 332316 1 Capsule(s) PO BID 11/24/2015 11/30/2015 Inactive Kenalog 40 mg/mL suspension for injection RxNorm: 0733055 1 Milliliter(s) Inj 11/24/2015 11/24/2015 Inactive Lexapro 20 mg tablet RxNorm: 748103 TAKE 1/2 TABLET BY MOUTH DAILY FOR 10 DAYS, THEN TAKE ONE TABLET BY MOUTH DAILY 11/23/2015 05/20/2016 Inactive Norvasc 10 mg tablet RxNorm: 679307 Tablet(s) PO TAKE ONE TABLET BY MOUTH EVERY DAY 10/26/2015 02/22/2016 Inactive Lipitor 10 mg tablet RxNorm: 155980 Tablet(s) TAKE ONE TABLET BY MOUTH EVERY DAY 10/26/2015 11/06/2016 Inactive hydrochlorothiazide 25 mg tablet RxNorm: 276015 TAKE ONE TABLET BY MOUTH DAILY 10/20/2015 01/17/2016 Inactive alprazolam 0.25 mg tablet RxNorm: 262462 1 Tablet(s) PO daily as needed 08/27/2015 11/22/2015 Inactive (Response to an electronic controlled substance refill request - RxReferenceNumber: [id number]) promethazine 25 mg/mL injection solution RxNorm: 968763 Milliliter(s) Inj 08/27/2015 08/27/2015 Inactive ketorolac 60 mg/2 mL intramuscular solution RxNorm: 544365 Milliliter(s) IM 08/27/2015 08/27/2015 Inactive Lexapro 20 mg tablet RxNorm: 866055 TAKE 1/2 TABLET BY MOUTH DAILY FOR 10 DAYS, THEN TAKE ONE TABLET BY MOUTH DAILY 08/13/2015 11/10/2015 Inactive Flonase 50 mcg/actuation nasal spray,suspension RxNorm: 392655 PLACE 1 SPRAY IN EACH NOSTRIL DAILY 08/13/2015 02/08/2016 Inactive Augmentin 500 mg-125 mg tablet RxNorm: 009474 1 Tablet(s) PO TID 08/10/2015 08/16/2015 Inactive Kenalog 40 mg/mL suspension for injection RxNorm: 4441903 Milliliter(s) Inj 08/10/2015 08/10/2015 Inactive ceftriaxone 500 mg solution for injection RxNorm: 7889583 Inj 08/10/2015 08/10/2015 Inactive nystatin 100,000 unit/mL oral suspension RxNorm: 276057 4 Milliliter(s) PO QID 08/10/2015 08/16/2015 Inactive trazodone 50 mg tablet RxNorm: 802595 TAKE 1 AND 1/2 TABLET AT BEDTIME FOR 2 WEEKS, MAY INCREASE TO 2 TABLETS IF NECESSARY AFTER THAT 07/31/2015 11/25/2015 Inactive ceftriaxone 500 mg solution for injection RxNorm: 7174788 1 Milliliter(s) Inj 07/28/2015 07/28/2015 Inactive Bactrim DS 800 mg-160 mg tablet RxNorm: 481539 1 Tablet(s) PO BID 07/28/2015 08/06/2015 Inactive Bactroban 2 % topical ointment RxNorm: 641348 1 Application TOP BID 07/28/2015 08/06/2015 Inactive Diflucan 150 mg tablet RxNorm: 602965 1 Tablet(s) PO daily 06/11/2015 06/17/2015 Inactive clotrimazole 1 % topical cream RxNorm: 656360 1 Application TOP BID 06/11/2015 07/10/2015 Inactive Bystolic 10 mg tablet RxNorm: 486573 TAKE ONE TABLET BY MOUTH DAILY 06/08/2015 12/04/2015 Inactive alprazolam 0.25 mg tablet RxNorm: 230276 1 Tablet(s) PO daily as needed 06/01/2015 08/25/2015 Inactive (Response to an electronic controlled substance refill request - RxReferenceNumber: [id number]) Fioricet 50 mg-325 mg-40 mg tablet RxNorm: 942470 Tablet(s) TAKE ONE TABLET BY MOUTH EVERY 4 HOURS NEEDED FOR headache 05/28/2015 06/08/2015 Inactive (Response to an electronic controlled substance refill request - RxReferenceNumber: [id number]) trazodone 50 mg tablet RxNorm: 333250 TAKE 1 AND 1/2 TABLET AT BEDTIME FOR 2 WEEKS, MAY INCREASE TO 2 TABLETS IF NECESSARY AFTER THAT 05/25/2015 08/22/2015 Inactive trazodone 50 mg tablet RxNorm: 933501 TAKE 1 AND 1/2 TABLET AT BEDTIME FOR 2 WEEKS, MAY INCREASE TO 2 TABLETS IF NECESSARY AFTER THAT 05/25/2015 05/24/2015 Inactive Synthroid 100 mcg tablet RxNorm: 924781 TAKE ONE TABLET BY MOUTH DAILY 04/23/2015 01/17/2016 Inactive Lipitor 10 mg tablet RxNorm: 716417 TAKE ONE TABLET BY MOUTH EVERY DAY 04/23/2015 10/25/2015 Inactive Kenalog 40 mg/mL suspension for injection RxNorm: 8352116 Milliliter(s) Inj 03/19/2015 03/19/2015 Inactive Lexapro 20 mg tablet RxNorm: 375496 1 Tablet(s) PO daily 03/19/2015 07/16/2015 Inactive 1/2 tab daily x 10 days then 1 tab daily hydrocodone 10 mg-acetaminophen 325 mg tablet RxNorm: 595142 Tablet(s) PO TAKE ONE TO TWO TABLETS BY MOUTH EVERY 6 HOURS NEEDED FOR PAIN 03/19/2015 06/06/2016 Inactive (Appended: Controlled substance eRx refill - RxReferenceNumber: [id number]) Carafate 1 gram tablet RxNorm: 549354 1 Tablet(s) PO AC & HS 03/19/2015 06/16/2015 Inactive dissolve in water and take as a slurry hydrochlorothiazide 25 mg tablet RxNorm: 476652 1 Tablet(s) PO daily 03/12/2015 09/07/2015 Inactive Nexium 40 mg capsule,delayed release RxNorm: 239880 TAKE ONE CAPSULE BY MOUTH EVERY DAY 02/26/2015 12/22/2015 Inactive Cymbalta 60 mg capsule,delayed release RxNorm: 171214 TAKE ONE CAPSULE BY MOUTH TWICE A DAY 02/23/2015 03/18/2015 Inactive alprazolam 0.25 mg tablet RxNorm: 522398 1 Tablet(s) PO daily as needed 02/11/2015 05/10/2015 Inactive (Response to an electronic controlled substance refill request - RxReferenceNumber: [id number]) trazodone 50 mg tablet RxNorm: 383452 TAKE 1 AND 1/2 TABLET AT BEDTIME FOR 2 WEEKS, MAY INCREASE TO 2 TABLETS IF NECESSARY AFTER THAT 01/27/2015 05/24/2015 Inactive Augmentin 500 mg-125 mg tablet RxNorm: 682066 1 Tablet(s) PO TID 01/07/2015 01/13/2015 Inactive gentamicin 0.3 % eye drops RxNorm: 273035 3 Drop(s) OPH QID 01/07/2015 01/13/2015 Inactive [AttnRPh: Saving apply/adjudicate RxGRP:[id number] RxBIN:[id number] RxPCN: ID#:[id number]] scopolamine 1.5 mg transdermal 72 hour patch RxNorm: 056232 1 Patch TD q72 hours 01/07/2015 11/23/2015 Inactive Synthroid 100 mcg tablet RxNorm: 810385 TAKE ONE TABLET BY MOUTH ONCE A DAY 01/06/2015 04/22/2015 Inactive nystatin 100,000 unit/gram topical powder RxNorm: 469485 APPLY TOPICALLY TWO TIMES A DAY 12/18/2014 03/17/2015 Inactive alprazolam 0.25 mg tablet RxNorm: 038868 TAKE ONE TABLET BY MOUTH DAILY NEEDED 10/30/2014 11/28/2014 Inactive (Response to an electronic controlled substance refill request - RxReferenceNumber: [id number]) alprazolam 0.25 mg tablet RxNorm: 023982 Tablet(s) TAKE ONE TABLET BY MOUTH DAILY 10/30/2014 10/29/2014 Inactive (Response to an electronic controlled substance refill request - RxReferenceNumber: [id number]) Lipitor 10 mg tablet RxNorm: 707569 TAKE ONE TABLET BY MOUTH EVERY DAY 10/30/2014 02/26/2015 Inactive alprazolam 0.25 mg tablet RxNorm: 887866 TAKE ONE TABLET BY MOUTH DAILY 10/07/2014 10/29/2014 Inactive (Response to an electronic controlled substance refill request - RxReferenceNumber: [id number]) alprazolam 0.25 mg tablet RxNorm: 060601 TAKE ONE TABLET BY MOUTH DAILY 10/06/2014 10/07/2014 Inactive (Response to an electronic controlled substance refill request - RxReferenceNumber: [id number]) alprazolam 0.25 mg tablet RxNorm: 037160 Tablet(s) TAKE ONE TABLET BY MOUTH EVERY DAY NEEDED 09/30/2014 10/06/2014 Inactive (Response to an electronic controlled substance refill request - RxReferenceNumber: [id number]) Fioricet 50 mg-325 mg-40 mg tablet RxNorm: 198830 Tablet(s) TAKE ONE TABLET BY MOUTH EVERY 4 HOURS NEEDED FOR headache 09/29/2014 10/12/2014 Inactive (Response to an electronic controlled substance refill request - RxReferenceNumber: [id number]) Bystolic 10 mg tablet RxNorm: 660344 1 Tablet(s) PO daily TAKE ONE TABLET BY MOUTH EVERY DAY 09/29/2014 04/26/2015 Inactive Bystolic 5 mg tablet RxNorm: 324449 TAKE 1 AND 1/2 TABLETS ONCE DAILY 09/24/2014 09/23/2014 Inactive Bystolic 5 mg tablet RxNorm: 114205 Tablet(s) TAKE 1 AND 1/2 TABLETS ONCE DAILY 09/24/2014 09/18/2015 Inactive gentamicin 0.3 % eye drops RxNorm: 751229 3 Drop(s) OPH QID 09/23/2014 09/29/2014 Inactive trazodone 50 mg tablet RxNorm: 363328 TAKE 1 AND 1/2 TABLET AT BEDTIME FOR 2 WEEKS, MAY INCREASE TO 2 TABLETS IF NECESSARY AFTER THAT 09/22/2014 01/26/2015 Inactive Fioricet 50 mg-325 mg-40 mg tablet RxNorm: 843353 TAKE ONE TABLET BY MOUTH EVERY 4 HOURS NEEDED FOR PAIN 09/17/2014 09/28/2014 Inactive (Response to an electronic controlled substance refill request - RxReferenceNumber: [id number]) Duragesic 50 mcg/hr transdermal patch RxNorm: 483605 1 TD q72 hours 08/07/2014 01/06/2015 Inactive [SAVINGS FOR UNINSURED PATIENTS -- BIN:484809, PCN: ASPROD1, Group: [id number], ID# [id number], Process claim through Eight19, for questions: . THIS IS NOT INSURANCE.] alprazolam 0.25 mg tablet RxNorm: 211728 TAKE ONE TABLET BY MOUTH EVERY DAY NEEDED 07/31/2014 08/29/2014 Inactive (Response to an electronic controlled substance refill request - RxReferenceNumber: [id number]) alprazolam 0.25 mg tablet RxNorm: 310886 1 Tablet(s) PO daily as needed TAKE ONE TABLET BY MOUTH EVERY DAY NEEDED 07/30/2014 08/01/2014 Inactive (Response to an electronic controlled substance refill request - RxReferenceNumber: [id number]) Diflucan 150 mg tablet RxNorm: 530380 1 Tablet(s) PO daily 06/25/2014 07/01/2014 Inactive [SAVINGS FOR UNINSURED PATIENTS -- BIN:380767, PCN: ASPROD1, Group: AME08, ID# [id number], Process claim through Eight19, for questions: . THIS IS NOT INSURANCE.] Kenalog 40 mg/mL suspension for injection RxNorm: 3361313 Milliliter(s) Inj 06/23/2014 06/23/2014 Inactive [SAVINGS FOR UNINSURED PATIENTS -- BIN:663482, PCN: ASPROD1, Group: [id number], ID# [id number], Process claim through MedImpact, for questions: . THIS IS NOT INSURANCE.] ceftriaxone 500 mg solution for injection RxNorm: 916901 Inj 06/23/2014 06/23/2014 Inactive [SAVINGS FOR UNINSURED PATIENTS -- BIN:569750, PCN: ASPROD1, Group: [id number], ID# [id number], Process claim through MedImpact, for questions: . THIS IS NOT INSURANCE.] Levaquin 500 mg tablet RxNorm: 976948 1 Tablet(s) PO daily 06/23/2014 07/13/2014 Inactive [SAVINGS FOR UNINSURED PATIENTS -- BIN:414281, PCN: ASPROD1, Group: [id number], ID# [id number], Process claim through MedImpact, for questions: . THIS IS NOT INSURANCE.] Duragesic 50 mcg/hr transdermal patch RxNorm: 890169 1 TD q72 hours 06/05/2014 08/06/2014 Inactive [SAVINGS FOR UNINSURED PATIENTS -- BIN:319858, PCN: ASPROD1, Group: [id number], ID# [id number], Process claim through MedImpact, for questions: . THIS IS NOT INSURANCE.] alprazolam 0.25 mg tablet RxNorm: 163186 1 Tablet(s) PO daily as needed TAKE ONE TABLET BY MOUTH EVERY DAY NEEDED 06/02/2014 07/29/2014 Inactive (Response to an electronic controlled substance refill request - RxReferenceNumber: [id number]) nystatin 100,000 unit/gram topical powder RxNorm: 052340 APPLY TO AFFECTED AREA(S) TWO TIMES A DAY 05/01/2014 06/14/2014 Inactive hydrochlorothiazide 25 mg tablet RxNorm: 641331 TAKE ONE TABLET BY MOUTH EVERY DAY MUST CALL MD FOR APPOINTMENT 04/24/2014 10/20/2014 Inactive alprazolam 0.25 mg tablet RxNorm: 532892 Tablet(s) TAKE ONE TABLET BY MOUTH EVERY DAY NEEDED 04/16/2014 06/02/2014 Inactive (Response to an electronic controlled substance refill request - RxReferenceNumber: [id number]) alprazolam 0.25 mg tablet RxNorm: 825028 TAKE ONE TABLET BY MOUTH EVERY DAY NEEDED 04/16/2014 05/15/2014 Inactive (Response to an electronic controlled substance refill request - RxReferenceNumber: [id number]) alprazolam 0.25 mg tablet RxNorm: 452478 TAKE ONE TABLET BY MOUTH EVERY DAY NEEDED 04/16/2014 05/15/2014 Inactive (Response to an electronic controlled substance refill request - RxReferenceNumber: [id number]) alprazolam 0.25 mg tablet RxNorm: 089675 TAKE ONE TABLET BY MOUTH EVERY DAY NEEDED 04/14/2014 04/16/2014 Inactive (Response to an electronic controlled substance refill request - RxReferenceNumber: [id number]) Lipitor 10 mg tablet RxNorm: 848673 TAKE ONE TABLET BY MOUTH EVERY DAY 04/14/2014 09/10/2014 Inactive alprazolam 0.25 mg tablet RxNorm: 990109 TAKE ONE TABLET BY MOUTH EVERY DAY NEEDED 04/14/2014 04/14/2014 Inactive (Response to an electronic controlled substance refill request - RxReferenceNumber: [id number]) alprazolam 0.25 mg tablet RxNorm: 637095 TAKE ONE TABLET BY MOUTH EVERY DAY NEEDED 04/14/2014 04/15/2014 Inactive (Response to an electronic controlled substance refill request - RxReferenceNumber: [id number]) alprazolam 0.25 mg tablet RxNorm: 107118 TAKE ONE TABLET BY MOUTH EVERY DAY NEEDED 04/14/2014 04/14/2014 Inactive (Response to an electronic controlled substance refill request - RxReferenceNumber: [id number]) nystatin 100,000 unit/gram topical powder RxNorm: 132716 1 Application TOP BID 04/03/2014 07/01/2014 Inactive [SAVINGS FOR UNINSURED PATIENTS -- BIN:665985, PCN: ASPROD1, Group: [id number], ID# [id number], Process claim through Eight19, for questions: . THIS IS NOT INSURANCE.] Keflex 500 mg capsule RxNorm: 552718 1 Capsule(s) PO QID 04/03/2014 04/09/2014 Inactive [SAVINGS FOR UNINSURED PATIENTS -- BIN:243221, PCN: ASPROD1, Group: AME08, ID# [id number], Process claim through MedImpact, for questions: . THIS IS NOT INSURANCE.] Synthroid 100 mcg tablet RxNorm: 089778 1 Tablet(s) PO daily TAKE ONE TABLET BY MOUTH EVERY DAY 04/01/2014 01/05/2015 Inactive [SAVINGS FOR UNINSURED PATIENTS -- BIN:018207, PCN: ASPROD1, Group: AME08, ID# [id number], Process claim through MedImpact, for questions: . THIS IS NOT INSURANCE.] Duragesic 50 mcg/hr transdermal patch RxNorm: 495963 1 TD q72 hours 03/24/2014 06/04/2014 Inactive [SAVINGS FOR UNINSURED PATIENTS -- BIN:548334, PCN: ASPROD1, Group: AME08, ID# [id number], Process claim through MedImpact, for questions: . THIS IS NOT INSURANCE.] trazodone 50 mg tablet RxNorm: 688073 TAKE 1 AND 1/2 TABLET AT BEDTIME FOR 2 WEEKS, MAY INCREASE TO 2 TABLETS IF NECESSARY AFTER THAT 03/18/2014 09/13/2014 Inactive nystatin 100,000 unit/gram topical powder RxNorm: 540036 1 Application TOP BID 03/07/2014 03/16/2014 Inactive [SAVINGS FOR UNINSURED PATIENTS -- BIN:986787, PCN: ASPROD1, Group: AME08, ID# [id number], Process claim through MedImpact, for questions: . THIS IS NOT INSURANCE.] permethrin 5 % topical cream RxNorm: 743151 1 Application TOP daily 03/07/2014 11/23/2015 Inactive apply head to toe-leave on overnight and wash off in the a.m. May repeat x 1 if needed Diflucan 150 mg tablet RxNorm: 711758 1 Tablet(s) PO daily 03/07/2014 03/09/2014 Inactive [SAVINGS FOR UNINSURED PATIENTS -- BIN:389974, PCN: ASPROD1, Group: AME08, ID# [id number], Process claim through [employer]ikeBright, for questions: . THIS IS NOT INSURANCE.] hydrochlorothiazide 25 mg tablet RxNorm: 357668 TAKE ONE TABLET BY MOUTH EVERY DAY MUST CALL MD FOR APPOINTMENT 03/06/2014 04/23/2014 Inactive Zithromax Z-Sergio 250 mg tablet RxNorm: 983039 Tablet(s) PO as directed 03/04/2014 11/23/2015 Inactive [SAVINGS FOR UNINSURED PATIENTS -- BIN:317377, PCN: ASPROD1, Group: AME08, ID# [id number], Process claim through MedImpact, for questions: . THIS IS NOT INSURANCE.] Flonase 50 mcg/actuation nasal spray,suspension RxNorm: 440939 1 [place] NASAL daily 03/04/2014 07/01/2014 Inactive [SAVINGS FOR UNINSURED PATIENTS -- BIN:312161, PCN: ASPROD1, Group: AME08, ID# [id number], Process claim through MedImpact, for questions: . THIS IS NOT INSURANCE.] alprazolam 0.25 mg tablet RxNorm: 506096 1 Tablet(s) PO PRN TAKE ONE TABLET BY MOUTH EVERY DAY NEEDED 02/25/2014 04/14/2014 Inactive (Appended: Controlled substance eRx refill - RxReferenceNumber: [id number]) alprazolam 0.25 mg tablet RxNorm: 862584 TAKE ONE TABLET BY MOUTH EVERY DAY NEEDED 02/21/2014 03/22/2014 Inactive (Response to an electronic controlled substance refill request - RxReferenceNumber: [id number]) alprazolam 0.25 mg tablet RxNorm: 846908 TAKE ONE TABLET BY MOUTH EVERY DAY NEEDED 02/21/2014 03/22/2014 Inactive (Response to an electronic controlled substance refill request - RxReferenceNumber: [id number]) alprazolam 0.25 mg tablet RxNorm: 879880 TAKE ONE TABLET BY MOUTH EVERY DAY NEEDED 02/18/2014 03/19/2014 Inactive (Response to an electronic controlled substance refill request - RxReferenceNumber: [id number]) Cymbalta 60 mg capsule,delayed release RxNorm: 084472 TAKE ONE CAPSULE BY MOUTH TWICE A DAY 02/18/2014 01/13/2015 Inactive Nexium 40 mg capsule,delayed release RxNorm: 888726 TAKE ONE CAPSULE BY MOUTH EVERY DAY 02/18/2014 01/13/2015 Inactive Bactrim DS 800 mg-160 mg tablet RxNorm: 942528 1 Tablet(s) PO BID 02/13/2014 02/19/2014 Inactive probiotic while one antibiotic Bactrim DS 800 mg-160 mg tablet RxNorm: 054720 1 Tablet(s) PO BID 02/13/2014 02/12/2014 Inactive hydrocodone 10 mg-acetaminophen 325 mg tablet RxNorm: 785606 Tablet(s) PO TAKE ONE TO TWO TABLETS BY MOUTH EVERY 6 HOURS NEEDED FOR PAIN 02/06/2014 03/18/2015 Inactive (Appended: Controlled substance eRx refill - RxReferenceNumber: [id number]) Abilify 2 mg tablet RxNorm: 006346 Tablet(s) PO TAKE ONE TABLET BY MOUTH EVERY NIGHT AT BEDTIME 02/03/2014 03/19/2015 Inactive Duragesic 50 mcg/hr transdermal patch RxNorm: 222471 1 TD q72 hours 01/14/2014 03/23/2014 Inactive alprazolam 0.25 mg tablet RxNorm: 792774 1 Tablet(s) PO QDAY PRN 01/14/2014 02/12/2014 Inactive alprazolam 0.25 mg tablet RxNorm: 951899 Tablet(s) PO TAKE ONE TABLET BY MOUTH EVERY DAY NEEDED 01/14/2014 02/24/2014 Inactive (Appended: Controlled substance eRx refill - RxReferenceNumber: [id number]) Lipitor 10 mg tablet RxNorm: 642317 Tablet(s) PO TAKE ONE TABLET BY MOUTH EVERY DAY 01/14/2014 04/13/2014 Inactive Synthroid 100 mcg tablet RxNorm: 472809 Tablet(s) PO TAKE ONE TABLET BY MOUTH EVERY DAY 2013 03/31/2014 Inactive Fioricet 50 mg-325 mg-40 mg tablet RxNorm: 627789 Tablet(s) PO TAKE ONE TABLET BY MOUTH EVERY 4 HOURS NEEDED FOR PAIN 11/27/2013 09/17/2014 Inactive Fioricet 50 mg-325 mg-40 mg tablet RxNorm: 044437 Tablet(s) PO TAKE ONE TABLET BY MOUTH EVERY 4 HOURS NEEDED FOR PAIN 11/25/2013 11/26/2013 Inactive Zithromax Z-Sergio 250 mg tablet RxNorm: 805584 Tablet(s) PO as directed 11/11/2013 01/13/2014 Inactive Bystolic 10 mg tablet RxNorm: 010927 Tablet(s) PO TAKE ONE TABLET BY MOUTH EVERY DAY 10/21/2013 09/28/2014 Inactive Abilify 2 mg tablet RxNorm: 864577 1 Tablet(s) PO QHS 09/25/2013 01/22/2014 Inactive Synthroid 100 mcg tablet RxNorm: 603273 Tablet(s) PO TAKE ONE TABLET BY MOUTH EVERY DAY 09/24/2013 12/25/2013 Inactive Abilify 2 mg tablet RxNorm: 921555 1 Tablet(s) PO QHS 09/24/2013 09/24/2013 Inactive Rocephin 500 mg solution for injection RxNorm: 793297 1ml Milliliter(s) Inj 09/24/2013 09/24/2013 Inactive Rocephin 500 mg solution for injection RxNorm: 874576 1 Milliliter(s) Inj 09/19/2013 09/19/2013 Inactive Bystolic 5 mg tablet RxNorm: 324733 1 1/2 Tablet(s) PO daily 09/17/2013 03/15/2014 Inactive 1 1/2 daily may have 90 day if cheaper Bystolic 5 mg tablet RxNorm: 562286 1 1/2 Tablet(s) PO daily 09/17/2013 09/16/2013 Inactive 1 1/2 daily Lipitor 10 mg tablet RxNorm: 446738 Tablet(s) PO TAKE ONE TABLET BY MOUTH EVERY DAY 09/12/2013 01/13/2014 Inactive hydrocodone 10 mg-acetaminophen 325 mg tablet RxNorm: 560632 Tablet(s) PO TAKE ONE TO TWO TABLETS BY MOUTH EVERY 6 HOURS NEEDED FOR PAIN 09/09/2013 No Stop Date Active (Appended: Controlled substance eRx refill - RxReferenceNumber: [id number]) hydrocodone 10 mg-acetaminophen 325 mg tablet RxNorm: 067247 1 Tablet(s) PO Q6 PRN 09/09/2013 02/06/2014 Inactive hydrocodone 10 mg-acetaminophen 325 mg tablet RxNorm: 706459 Tablet(s) PO TAKE ONE TO TWO TABLETS BY MOUTH EVERY 6 HOURS NEEDED FOR PAIN 09/06/2013 No Stop Date Active (Appended: Controlled substance eRx refill - RxReferenceNumber: [id number]) Norvasc 10 mg tablet RxNorm: 672042 Tablet(s) PO TAKE ONE TABLET BY MOUTH EVERY DAY 09/05/2013 10/25/2015 Inactive trazodone 50 mg tablet RxNorm: 003675 1 1/2 Tablet(s) PO QHS 09/03/2013 03/17/2014 Inactive 75q hs x 2 week may increase to 100mg if nec after that nystatin 100,000 unit/mL oral suspension RxNorm: 737280 6 Milliliter(s) PO QID 08/06/2013 08/15/2013 Inactive Flonase 50 mcg/actuation nasal spray,suspension RxNorm: 022358 2 [place] NASAL daily 08/06/2013 03/03/2014 Inactive nystatin 100,000 unit/mL oral suspension RxNorm: 867264 6 Unit(s) PO QID 08/05/2013 08/05/2013 Inactive Phenergan with Codeine Syrup RxNorm: 5 Milliliter(s) PO Q4 PRN 08/05/2013 12/02/2013 Inactive 8 ounces alprazolam 0.25 mg tablet RxNorm: 460737 1 Tablet(s) PO QDAY PRN 07/29/2013 01/14/2014 Inactive Diflucan 150 mg tablet RxNorm: 126688 1 Tablet(s) PO daily 07/24/2013 07/26/2013 Inactive hydrochlorothiazide 25 mg tablet RxNorm: 054735 Tablet(s) PO TAKE ONE TABLET BY MOUTH EVERY DAY MUST CALL MD FOR APPOINTMENT 07/19/2013 03/05/2014 Inactive Phenergan with Codeine Syrup RxNorm: 10 Milliliter(s) PO Q4 PRN 07/10/2013 08/04/2013 Inactive 8 ounces Rocephin 500 mg solution for injection RxNorm: 369886 1 Inj 07/10/2013 07/10/2013 Inactive cefdinir 300 mg capsule RxNorm: 202346 1 Capsule(s) PO BID 07/10/2013 07/16/2013 Inactive prednisone 10 mg tablet RxNorm: 955854 3 Tablet(s) PO daily 07/10/2013 07/14/2013 Inactive Carafate 100 mg/mL oral suspension RxNorm: 736472 10 Milliliter(s) PO Q6 PRN pt to take carafate 10mL every 6 hours as needed. 07/10/2013 08/05/2014 Inactive Kenalog 40 mg/mL suspension for injection RxNorm: 9885220 1 Milliliter(s) Inj 07/10/2013 07/10/2013 Inactive trazodone 50 mg tablet RxNorm: 764794 1 Tablet(s) PO QHS 07/10/2013 09/02/2013 Inactive sulfamethoxazole 800 mg-trimethoprim 160 mg tablet RxNorm: 235749 1 Tablet(s) PO BID 06/03/2013 06/12/2013 Inactive Synthroid 125 mcg tablet RxNorm: 413432 1 Tablet(s) PO daily 05/07/2013 09/23/2013 Inactive Bystolic 10 mg tablet RxNorm: 104048 1.5 Tablet(s) PO daily 05/07/2013 09/03/2013 Inactive Voltaren 1 % Topical Gel RxNorm: 974595 4 Gram(s) TOP QID apply 4 grams to knees, 2 grams to hands and ankles four times daily. 05/07/2013 09/03/2013 Inactive hydrocodone 10 mg-acetaminophen 325 mg tablet RxNorm: 850418 1 Tablet(s) PO Q6 PRN 04/23/2013 09/09/2013 Inactive Norvasc 10 mg tablet RxNorm: 848147 Tablet(s) PO TAKE ONE TABLET BY MOUTH EVERY DAY 04/23/2013 09/04/2013 Inactive alprazolam 0.25 mg tablet RxNorm: 978025 1 Tablet(s) PO QDAY PRN 03/25/2013 07/22/2013 Inactive Bystolic 10 mg tablet RxNorm: 398853 1 Tablet(s) PO daily TAKE ONE TABLET BY MOUTH EVERY DAY 03/25/2013 05/06/2013 Inactive zolpidem 10 mg tablet RxNorm: 633970 1 Tablet(s) PO HS PRN 03/25/2013 07/09/2013 Inactive gentamicin 0.3 % Eye Drops RxNorm: 888012 3 Drop(s) OPH QID three gtts to each eye QID x 7 days 03/11/2013 03/10/2013 Inactive gentamicin 0.3 % eye drops RxNorm: 121222 3 Drop(s) OPH QID three gtts to each eye QID x 7 days 03/11/2013 03/17/2013 Inactive Nexium 40 mg capsule,delayed release RxNorm: 976036 Capsule(s) PO TAKE ONE CAPSULE BY MOUTH EVERY DAY 02/15/2013 02/17/2014 Inactive Cymbalta 60 mg capsule,delayed release RxNorm: 670178 Capsule(s) PO TAKE ONE CAPSULE BY MOUTH TWICE A DAY 02/15/2013 02/17/2014 Inactive hydrocodone 10 mg-acetaminophen 325 mg tablet RxNorm: 1010762 1 Tablet(s) PO Q6 PRN 01/22/2013 04/22/2013 Inactive Lipitor 10 mg tablet RxNorm: 392203 Tablet(s) PO TAKE ONE TABLET BY MOUTH EVERY DAY 01/07/2013 09/11/2013 Inactive Cymbalta 60 mg capsule,delayed release RxNorm: 183517 Capsule(s) PO TAKE ONE CAPSULE BY MOUTH TWICE A DAY 01/02/2013 02/14/2013 Inactive Synthroid 100 mcg tablet RxNorm: 301052 1 Tablet(s) PO 12/03/2012 05/06/2013 Inactive Enablex 7.5 mg tablet,extended release RxNorm: 083339 1 Tablet(s) PO daily 11/28/2012 11/27/2012 Inactive Enablex 7.5 mg tablet,extended release RxNorm: 032843 1 Tablet(s) PO daily 11/28/2012 11/28/2012 Inactive scopolamine 1.5 mg 72 hr Transderm Patch RxNorm: 509251 1 Milligram(s) TD q72 hours 11/26/2012 05/06/2013 Inactive hydrochlorothiazide 25 mg tablet RxNorm: 588027 Tablet(s) PO TAKE ONE TABLET BY MOUTH EVERY DAY MUST CALL FOR APPOINTMENT 11/24/2012 07/18/2013 Inactive Cymbalta 60 mg capsule,delayed release RxNorm: 333906 Capsule(s) PO TAKE ONE CAPSULE BY MOUTH TWICE A DAY 10/26/2012 01/01/2013 Inactive Bystolic 10 mg tablet RxNorm: 579879 Tablet(s) PO TAKE ONE TABLET BY MOUTH EVERY DAY 10/12/2012 03/25/2013 Inactive zolpidem 10 mg tablet RxNorm: 376759 1 Tablet(s) PO HS PRN 10/02/2012 01/29/2013 Inactive alprazolam 0.25 mg tablet RxNorm: 735037 1 Tablet(s) PO QDAY PRN 10/02/2012 01/29/2013 Inactive Kenalog 40 mg/mL Susp for Injection RxNorm: 3344701 1 Milliliter(s) Inj 09/24/2012 09/24/2012 Inactive Diflucan 150 mg tablet RxNorm: 170707 1 Tablet(s) PO daily 09/24/2012 09/30/2012 Inactive acyclovir 400 mg tablet RxNorm: 024812 1 Tablet(s) PO QID 09/24/2012 10/08/2012 Inactive Cipro 500 mg tablet RxNorm: 419988 1 Tablet(s) PO BID 09/24/2012 09/30/2012 Inactive Tamiflu 75 mg capsule RxNorm: 380738 1 Capsule(s) PO BID 09/17/2012 09/16/2012 Inactive Tamiflu 75 mg capsule RxNorm: 890723 1 Capsule(s) PO BID 09/17/2012 09/16/2012 Inactive Tamiflu 75 mg capsule RxNorm: 151876 1 Capsule(s) PO BID please disregard order for #14 09/17/2012 09/21/2012 Inactive fluconazole 150 mg tablet RxNorm: 527449 1 Tablet(s) PO daily 09/10/2012 09/13/2012 Inactive ketoconazole 2 % Topical Cream RxNorm: 861247 Application TOP BID apply to affected area BID until gone 08/31/2012 No Stop Date Active Norvasc 10 mg tablet RxNorm: 041341 Tablet(s) PO TAKE ONE TABLET BY MOUTH EVERY DAY 08/29/2012 04/22/2013 Inactive Cipro 500 mg tablet RxNorm: 414475 1 Tablet(s) PO BID 08/17/2012 08/26/2012 Inactive Flagyl 500 mg tablet RxNorm: 367757 1 Tablet(s) PO TID 08/17/2012 08/23/2012 Inactive Cipro 500 mg tablet RxNorm: 931851 1 Tablet(s) PO BID 08/17/2012 08/16/2012 Inactive zolpidem 10 mg tablet RxNorm: 681994 1 Tablet(s) PO HS PRN 08/17/2012 09/15/2012 Inactive Flagyl 500 mg tablet RxNorm: 136393 1 Tablet(s) PO TID 08/17/2012 08/16/2012 Inactive alprazolam 0.25 mg tablet RxNorm: 735917 1 Tablet(s) PO QDAY PRN 08/17/2012 09/15/2012 Inactive Belle Allergy 180 mg tablet RxNorm: 370913 1 Tablet(s) PO daily 08/08/2012 02/03/2013 Inactive hydrochlorothiazide 25 mg tablet RxNorm: 221810 1/2 Tablet(s) PO daily 08/08/2012 11/05/2012 Inactive needs appt Carafate 1 gram tablet RxNorm: 951234 1 Tablet(s) PO QID mix with 10 cc water and dissolve into slurry 08/08/2012 08/21/2012 Inactive hydrocodone 10 mg-acetaminophen 325 mg tablet RxNorm: 7866108 1 Tablet(s) PO Q6 PRN 08/08/2012 01/21/2013 Inactive Synthroid 100 mcg tablet RxNorm: 107724 1 Tablet(s) PO 08/08/2012 12/02/2012 Inactive Cymbalta 60 mg capsule,delayed release RxNorm: 081615 Capsule(s) PO 07/23/2012 10/25/2012 Inactive TAKE ONE CAPSULE BY MOUTH TWICE A DAY Nexium 40 mg capsule,delayed release RxNorm: 597257 Capsule(s) PO 06/20/2012 02/14/2013 Inactive TAKE ONE CAPSULE BY MOUTH EVERY DAY Lipitor 10 mg tablet RxNorm: 976410 Tablet(s) PO 06/20/2012 01/06/2013 Inactive TAKE ONE TABLET BY MOUTH EVERY DAY hydrochlorothiazide 25 mg tablet RxNorm: 438937 1 Tablet(s) PO daily 06/19/2012 08/07/2012 Inactive needs appt alprazolam 0.25 mg tablet RxNorm: 535287 1 Tablet(s) PO QDAY PRN 06/05/2012 07/04/2012 Inactive zolpidem 10 mg tablet RxNorm: 906915 1 Tablet(s) PO HS PRN 06/05/2012 07/04/2012 Inactive zolpidem 10 mg tablet RxNorm: 052127 1 Tablet(s) PO HS PRN 04/16/2012 05/15/2012 Inactive alprazolam 0.25 mg tablet RxNorm: 742776 1 Tablet(s) PO QDAY PRN 04/16/2012 05/15/2012 Inactive Cymbalta 60 mg capsule,delayed release RxNorm: 869398 1 Capsule(s) PO BID 03/22/2012 07/19/2012 Inactive Fioricet 50 mg-325 mg-40 mg tablet RxNorm: 558836 1 Tablet(s) PO Q4 PRN 03/22/2012 11/24/2013 Inactive Bystolic 10 mg tablet RxNorm: 147348 Tablet(s) PO 03/22/2012 10/11/2012 Inactive TAKE ONE TABLET BY MOUTH EVERY DAY potassium chloride ER 10 mEq Tab RxNorm: 221831 1 Tablet(s) PO daily 02/24/2012 03/01/2012 Inactive Lasix 20 mg Tab RxNorm: 809833 1 Tablet(s) PO daily 02/22/2012 02/21/2012 Inactive KCL 10 meq RxNorm: 1 PO daily 02/22/2012 02/21/2012 Inactive potassium chloride ER 10 mEq Tab RxNorm: 359330 1 Tablet(s) PO daily 02/22/2012 02/21/2012 Inactive Lasix 20 mg Tab RxNorm: 805854 1 Tablet(s) PO daily 02/22/2012 02/28/2012 Inactive KCL 10 meq RxNorm: 1 PO daily 02/22/2012 02/22/2012 Inactive potassium chloride ER 10 mEq Tab RxNorm: 022722 1 Tablet(s) PO daily 02/22/2012 02/23/2012 Inactive Rocephin 500 mg Solution for Injection RxNorm: 720463 Inj 02/15/2012 02/15/2012 Inactive Nexium 40 mg capsule,delayed release RxNorm: 969119 1 Capsule(s) PO daily 02/15/2012 No Stop Date Active Bystolic 10 mg Tab RxNorm: 454480 1 Tablet(s) PO daily 02/15/2012 08/12/2012 Inactive alprazolam 0.25 mg tablet RxNorm: 592647 1 Tablet(s) PO QDAY PRN 01/31/2012 02/29/2012 Inactive zolpidem 10 mg tablet RxNorm: 033612 1 Tablet(s) PO HS PRN 01/31/2012 02/29/2012 Inactive alprazolam 0.25 mg Tab RxNorm: 937300 1 Tablet(s) PO QDAY PRN 12/16/2011 01/14/2012 Inactive zolpidem 10 mg Tab RxNorm: 205295 1 Tablet(s) PO HS PRN 12/16/2011 01/14/2012 Inactive Norvasc 10 mg tablet RxNorm: 038535 1 Tablet(s) PO daily 12/02/2011 02/21/2012 Inactive Lipitor 10 mg tablet RxNorm: 225978 1 Tablet(s) PO daily 11/16/2011 05/13/2012 Inactive zolpidem 10 mg Tab RxNorm: 822350 1 Tablet(s) PO HS PRN 10/26/2011 12/15/2011 Inactive alprazolam 0.25 mg Tab RxNorm: 349947 1 Tablet(s) PO QDAY PRN 10/26/2011 12/15/2011 Inactive hydrochlorothiazide 25 mg tablet RxNorm: 216296 1 Tablet(s) PO daily 09/05/2011 03/02/2012 Inactive Synthroid 75 mcg tablet RxNorm: 946358 1 Tablet(s) PO daily 08/01/2011 02/26/2012 Inactive Abilify 2 mg Tab RxNorm: 814505 1 Tablet(s) PO QHS 08/01/2011 09/10/2012 Inactive dicyclomine 10 mg Cap RxNorm: 225029 1 Capsule(s) PO TID 08/01/2011 10/29/2011 Inactive alprazolam 0.25 mg Tab RxNorm: 251908 1 Tablet(s) PO QDAY PRN 07/26/2011 10/25/2011 Inactive Fioricet 50 mg-325 mg-40 mg tablet RxNorm: 496516 1 Tablet(s) PO Q4 PRN 07/14/2011 03/21/2012 Inactive Rocephin 500 mg Solution for Injection RxNorm: 401737 1 Milliliter(s) Inj 07/14/2011 08/01/2011 Inactive Nexium 40 mg Capsule, delayed release RxNorm: 308901 1 Capsule(s) PO daily 05/23/2011 10/06/2011 Inactive Bystolic 10 mg tablet RxNorm: 457967 1 Tablet(s) PO daily 05/23/2011 11/18/2011 Inactive Bystolic 10 mg Tab RxNorm: 950491 1 Tablet(s) PO daily 05/23/2011 05/22/2011 Inactive alprazolam 0.25 mg Tab RxNorm: 314949 1 Tablet(s) PO QDAY PRN 05/23/2011 07/25/2011 Inactive Influenza Virus Vaccine 0.5 mL RxNorm: IM 05/23/2011 05/23/2011 Inactive zolpidem 10 mg Tab RxNorm: 747587 1 Tablet(s) PO HS PRN 05/23/2011 10/25/2011 Inactive Rocephin 500 mg Solution for Injection RxNorm: 069101 1 Milliliter(s) Inj 05/03/2011 07/14/2011 Inactive Kenalog 40 mg/mL Susp for Injection RxNorm: 9440541 1 Milliliter(s) Inj 05/03/2011 07/14/2011 Inactive Bactrim DS 800 mg-160 mg Tab RxNorm: 786948 1 Tablet(s) PO BID 05/03/2011 08/01/2011 Inactive Flonase 50 mcg/actuation nasal spray,suspension RxNorm: 9090363 1 [place] NASAL daily No Start Date Active 1 spray to each nostril daily aspirin 81 mg tablet RxNorm: 266547 1 Tablet(s) PO daily No Start Date Active baclofen 10 mg tablet RxNorm: 074146 1 Tablet(s) PO TID as needed muscle spasms No Start Date Active Fish Oil 1,000 mg Cap RxNorm: 1 Capsule(s) PO TID No Start Date Active Flonase 50 mcg/actuation nasal spray,suspension RxNorm: 6517925 2 [place] NASAL daily No Start Date 08/05/2013 Inactive Duragesic 50 mcg/hr transdermal patch RxNorm: 403488 1 TD q72 hours No Start Date 01/13/2014 Inactive Vesicare 5 mg tablet RxNorm: 696074 1 Tablet(s) PO daily No Start Date 01/06/2015 Inactive Celebrex 200 mg capsule RxNorm: 841338 1 Capsule(s) PO daily No Start Date 04/02/2014 Inactive zolpidem 10 mg Tab RxNorm: 387303 1 Tablet(s) PO HS PRN No Start Date 05/22/2011 Inactive Zyrtec 10 mg Tab RxNorm: 3662255 1 Tablet(s) PO daily No Start Date 08/08/2012 Inactive Nexium 40 mg Cap RxNorm: 961900 1 Capsule(s) PO daily No Start Date 05/22/2011 Inactive ketoconazole 2 % Topical Cream RxNorm: 487595 Application TOP BID apply to affected area BID until gone No Start Date 08/30/2012 Inactive Cymbalta 60 mg capsule,delayed release RxNorm: 489455 1 Capsule(s) PO BID No Start Date 03/21/2012 Inactive alprazolam 0.25 mg Tab RxNorm: 171146 1 Tablet(s) PO QDAY PRN No Start Date 05/22/2011 Inactive Toprol XL 100 mg 24 hr Tab RxNorm: 022390 1 Tablet(s) PO BID No Start Date 04/25/2011 Inactive Xanax 0.25 mg tablet RxNorm: 421777 1 Tablet(s) PO daily as needed No Start Date 12/27/2015 Inactive Bystolic 10 mg Tab RxNorm: 291398 1 Tablet(s) PO daily No Start Date 05/22/2011 Inactive Fioricet 50 mg-325 mg-40 mg Tab RxNorm: 743186 1 Tablet(s) PO Q4 PRN No Start Date 07/13/2011 Inactive albuterol sulfate HFA 90 mcg/Actuation Aerosol Inhaler RxNorm: 6790772 1 INH Q4 PRN No Start Date 01/06/2015 Inactive Imitrex 50 mg tablet RxNorm: 191870 1 Tablet(s) PO Q8 as needed may repeat x1 dose in 1 hour of inital dose. No Start Date 02/24/2016 Inactive dc fioricet Tessalon 200 mg Cap RxNorm: 299138 1 Capsule(s) PO Q4 PRN No Start Date 02/14/2012 Inactive Zithromax Z-Sergio 250 mg tablet RxNorm: 682161 Tablet(s) PO No Start Date 11/10/2013 Inactive hydrochlorothiazide 25 mg Tab RxNorm: 305701 1 Tablet(s) PO daily No Start Date 09/04/2011 Inactive Deplin 15 mg Tab RxNorm: 1 Tablet(s) PO daily No Start Date 08/01/2011 Inactive Brilinta 90 mg tablet RxNorm: 0913397 1 Tablet(s) PO BID No Start Date 11/23/2015 Inactive Synthroid 75 mcg Tab RxNorm: 499120 1 Tablet(s) PO daily No Start Date 07/31/2011 Inactive scopolamine 1.5 mg 72 hr Transderm Patch RxNorm: 812284 1 Milligram(s) TD q72 hours No Start Date 11/25/2012 Inactive hydrocodone-acetaminophen 10 mg-325 mg tablet RxNorm: 1911923 1 Tablet(s) PO Q6 PRN No Start Date 08/07/2012 Inactive Phenergan with Codeine Syrup RxNorm: 5-10 Milliliter(s) PO Q6 PRN No Start Date 02/14/2012 Inactive Norvasc 10 mg Tab RxNorm: 441645 1 Tablet(s) PO daily No Start Date 12/01/2011 Inactive Zithromax Z-Sergio 250 mg Tab RxNorm: 088867 Tablet(s) PO No Start Date 08/01/2011 Inactive Medication Administered Medication Codes Instructions Start Date Status ceftriaxone 500 mg solution for injection RxNorm: 3861795 1Milliliter 11/28/2016 No longer Active Kenalog 40 mg/mL suspension for injection RxNorm: 8389521 Milliliter 11/07/2016 No longer Active ceftriaxone 500 mg solution for injection RxNorm: 2098313 11/07/2016 No longer Active ceftriaxone 500 mg solution for injection RxNorm: 6295048 12/07/2015 No longer Active Kenalog 40 mg/mL suspension for injection RxNorm: 0862929 1Milliliter 11/24/2015 No longer Active ceftriaxone 500 mg solution for injection RxNorm: 9463370 Milliliter 11/24/2015 No longer Active promethazine 25 mg/mL injection solution RxNorm: 748744 Milliliter 08/27/2015 No longer Active ketorolac 60 mg/2 mL intramuscular solution RxNorm: 469080 Milliliter 08/27/2015 No longer Active Kenalog 40 mg/mL suspension for injection RxNorm: 3499734 Milliliter 08/10/2015 No longer Active ceftriaxone 500 mg solution for injection RxNorm: 5133353 08/10/2015 No longer Active ceftriaxone 500 mg solution for injection RxNorm: 5716479 1Milliliter 07/28/2015 No longer Active Kenalog 40 mg/mL suspension for injection RxNorm: 4403937 Milliliter 03/19/2015 No longer Active Kenalog 40 mg/mL suspension for injection RxNorm: 5017737 Milliliter 06/23/2014 No longer Active ceftriaxone 500 mg solution for injection RxNorm: 470284 06/23/2014 No longer Active Rocephin 500 mg solution for injection RxNorm: 470043 1mlMilliliter 09/24/2013 No longer Active Rocephin 500 mg solution for injection RxNorm: 680133 1Milliliter 09/19/2013 No longer Active Rocephin 500 mg solution for injection RxNorm: 584075 1 07/10/2013 No longer Active Kenalog 40 mg/mL suspension for injection RxNorm: 0309055 1Milliliter 07/10/2013 No longer Active Kenalog 40 mg/mL Susp for Injection RxNorm: 2715763 1Milliliter 09/24/2012 No longer Active Rocephin 500 mg Solution for Injection RxNorm: 852147 02/15/2012 No longer Active Influenza Virus Vaccine 0.5 mL RxNorm: 05/23/2011 No longer Active Immunizations Vaccine Codes Date Status Influenza CVX: 141 06/24/2013 completed Pneumococcal CVX: 33 06/24/2013 completed PPD Unknown 05/13/2013 completed Assessments Condition Codes Effective Dates Major depressive disorder, recurrent, moderate ICD-10: F33.1 ICD-9: 296.32 12/05/2016 Actinic keratosis ICD-10: L57.0 ICD-9: 702.0 12/05/2016 Acute recurrent maxillary sinusitis ICD-10: J01.01 ICD-9: [...] (primary) hypertension ICD-10: I10 ICD-9: 401.9 03/15/2016 Generalized anxiety disorder ICD-10: F41.1 ICD-9: 300.02 03/14/2016 Headache ICD-10: R51 ICD-9: 784.0 03/14/2016 Laceration [...] For Visit Effective Dates Notes skin lesion 12/05/2016 sinusitis 11/28/2016 Annual Medicare [...] 26.9 % 11/07/2016 Cbc With Differential Ord2 Josephine% 6.1 % 11/07/2016 Cbc With Differential Ord2 [...] 2.48 K/ul 11/07/2016 Cbc With Differential Ord2 Josephine ABS# 0.6 K/ul 11/07/2016 Cbc With Differential Ord2 Eos ABS# 0.3 K/ul 11/07/2016 Cbc With Differential Ord2 Baso ABS# 0.1 K/ul 11/07/2016 Comp Metabolic Ucn557 NA 139 mEq/L 11/07/2016 Comp Metabolic Hrb269 K 3.8 mEq/L 11/07/2016 Comp Metabolic Xkn865 CL 106 mEq/L 11/07/2016 Comp Metabolic Hug207 CO2 25.0 mEq/L 11/07/2016 Comp Metabolic Ffp871 ANION GAP 12 11/07/2016 Comp Metabolic Wtf995 GLUCOSE 98 mg/dL 11/07/2016 Comp Metabolic Gdh727 Creat 0.8 mg/dL 11/07/2016 Comp Metabolic Lrj982 eGFR 71 ml/min/1.73m2 11/07/2016 Comp Metabolic Ske183 BUN 36 mg/dL 11/07/2016 Comp Metabolic Ubi481 B/C Ratio 42.9 Ratio 11/07/2016 Comp Metabolic Imt633 CALCIUM 9.9 mg/dL 11/07/2016 Comp Metabolic Mya495 ALK PHOS 57 U/L 11/07/2016 Comp Metabolic Dhs773 AST(SGOT) 24 U/L 11/07/2016 Comp Metabolic Eua130 ALT(SGPT) 28 U/L 11/07/2016 Comp Metabolic Bmq833 BILI T 0.4 mg/dL 11/07/2016 Comp Metabolic Wck221 ALBUMIN 4.2 g/dL 11/07/2016 Comp Metabolic Atr089 TPRO 7.0 g/dL 11/07/2016 Comp Metabolic Diy265 GLOB 2.8 g/dL 11/07/2016 Comp Metabolic Mqs921 A/G Ratio 1.5 Ratio 11/07/2016 Comp Metabolic Xsu570 Osmo 286 mOsmo 11/07/2016 Free T4 Uac936 FREE T4 0.75 ng/dL 11/07/2016 Tsh Ord6 hTSH II 3.46 uIU/mL 11/07/2016 Comp Metabolic Jaq026 NA 138 mEq/L 05/10/2016 Comp Metabolic Xng836 K 3.8 mEq/L 05/10/2016 Comp Metabolic Nje301 CL 102 mEq/L 05/10/2016 Comp Metabolic Wev261 CO2 29.0 mEq/L 05/10/2016 Comp Metabolic Eif034 ANION GAP 11 05/10/2016 Comp Metabolic Mbz566 GLUCOSE 107 mg/dL 05/10/2016 Comp Metabolic Qxd890 Creat 0.7 mg/dL 05/10/2016 Comp Metabolic Wgr497 eGFR 93 ml/min/1.73m2 05/10/2016 Comp Metabolic Kkz137 BUN 18 mg/dL 05/10/2016 Comp Metabolic Xkg224 B/C Ratio 26.9 Ratio 05/10/2016 Comp Metabolic Cfp898 CALCIUM 9.8 mg/dL 05/10/2016 Comp Metabolic Pzi110 ALK PHOS 60 U/L 05/10/2016 Comp Metabolic Jgu169 AST(SGOT) 21 U/L 05/10/2016 Comp Metabolic Yvz276 ALT(SGPT) 23 U/L 05/10/2016 Comp Metabolic Aez291 BILI T 0.5 mg/dL 05/10/2016 Comp Metabolic Tcb330 ALBUMIN 4.1 g/dL 05/10/2016 Comp Metabolic Ilh725 TPRO 6.7 g/dL 05/10/2016 Comp Metabolic Arv603 GLOB 2.7 g/dL 05/10/2016 Comp Metabolic Bsc288 A/G Ratio 1.5 Ratio 05/10/2016 Comp Metabolic Scv164 Osmo 278 mOsmo 05/10/2016 Lipid Ord30 CHOL 169 mg/dL 05/10/2016 Lipid Ord30 HDL 50.0 mg/dl 05/10/2016 Lipid Ord30 TRIG 161 mg/dL 05/10/2016 Lipid Ord30 LDL 87 mg/dL 05/10/2016 Lipid Ord30 C/HDL 3.4 Ratio 05/10/2016 Comp Metabolic Gyp656 NA 137 mEq/L 06/12/2015 Comp Metabolic Yrp730 K 3.8 mEq/L 06/12/2015 Comp Metabolic Ott008 CL 104 mEq/L 06/12/2015 Comp Metabolic Dap727 CO2 24.0 mEq/L 06/12/2015 Comp Metabolic Fay916 ANION GAP 13 06/12/2015 Comp Metabolic Pgm533 GLUCOSE 92 mg/dL 06/12/2015 Comp Metabolic Kgm193 Creat 0.7 mg/dL 06/12/2015 Comp Metabolic Axl991 eGFR 87 ml/min/1.73m2 06/12/2015 Comp Metabolic Iiw601 BUN 31 mg/dL 06/12/2015 Comp Metabolic Abh336 B/C Ratio 43.7 Ratio 06/12/2015 Comp Metabolic Yuf009 CALCIUM 10.0 mg/dL 06/12/2015 Comp Metabolic Oll684 ALK PHOS 58 U/L 06/12/2015 Comp Metabolic Ljp855 AST(SGOT) 32 U/L 06/12/2015 Comp Metabolic Nfp130 ALT(SGPT) 33 U/L 06/12/2015 Comp Metabolic Teu922 BILI T 0.5 mg/dL 06/12/2015 Comp Metabolic Kfv088 ALBUMIN 4.1 g/dL 06/12/2015 Comp Metabolic Ifl205 TPRO 6.6 g/dL 06/12/2015 Comp Metabolic Unx553 GLOB 2.5 g/dL 06/12/2015 Comp Metabolic Wld061 A/G Ratio 1.6 Ratio 06/12/2015 Comp Metabolic Ser029 Osmo 280 mOsmo 06/12/2015 Cbc With Differential [...] Differential Ord2 RDW 14.2 % 06/12/2015 CBC [id number] WBC 8.7 10e9/L 04/30/2013 CBC [id number] RBC 4.63 10e12/L 04/30/2013 CBC [id number] HGB 14.1 g/dL 04/30/2013 CBC [id number] HCT DET 42.2 % 04/30/2013 CBC [id number] MCV 91.1 fL 04/30/2013 CBC [id number] MCH 30.5 pg 04/30/2013 CBC [id number] MCHC 33.4 g/dL 04/30/2013 CBC [id number] PLT 248 10e9/L 04/30/2013 CBC [id number] MPV 12.1 fL 04/30/2013 CBC [id number] LARA % 59.0 % 04/30/2013 CBC [id number] LY % 27.6 % 04/30/2013 CBC [id number] MON % 8.0 % 04/30/2013 CBC 3386050 EOS % 4.8 % 04/30/2013 CBC 6051729 BASO % 0.6 % 04/30/2013 CBC [id number] RDW 13.3 % 04/30/2013 CBC [id number] ABS LARA 5.13 10e9/L 04/30/2013 CBC [id number] ABS LYMPH 2.40 10e9/L 04/30/2013 CBC 3090102 ABS MONO 0.70 10e9/L 04/30/2013 CBC [id number] ABS EOS 0.42 10e9/L 04/30/2013 CBC [id number] ABS BASO 0.05 10e9/L 04/30/2013 CBC [id number] RDW-SD 43.1 fL 04/30/2013 TSH [id number] TSH 4.339 uIU/ML 04/30/2013 A1C HPLC 6277635 A1C HPLC 78751-7 5.6 % 04/30/2013 FREE T4 5591959 FREE T4 0.84 NG/DL 04/30/2013 GFR CALC 0514115 GFR AA >60 ML/MIN 04/30/2013 GFR CALC 0947776 GFR NON-AA >60 ML/MIN 04/30/2013 CHEM 14 9971610 AST 22 U/L 04/30/2013 CHEM 14 4562159 ALT 22 IU/L 04/30/2013 CHEM 14 4610477 BUN 24 MG/DL 04/30/2013 CHEM 14 1906063 ALBUMIN 4.2 GM/DL 04/30/2013 CHEM 14 6250846 CHLORIDE 107 MMOL/L 04/30/2013 CHEM 14 2460449 BILI TOT 0.3 MG/DL 04/30/2013 CHEM 14 6451543 ALK PHOS 88 U/L 04/30/2013 CHEM 14 8233647 SODIUM 141 MMOL/L 04/30/2013 CHEM 14 0316394 CREATININE 0.60 MG/DL 04/30/2013 CHEM 14 4032569 CALCIUM 9.9 MG/DL 04/30/2013 CHEM 14 8358528 POTASSIUM 3.7 MMOL/L 04/30/2013 CHEM 14 0095552 PROT TOT 6.6 GM/DL 04/30/2013 CHEM 14 3099229 GLUCOSE 123 MG/DL 04/30/2013 CHEM 14 1888728 BICARB 25 MMOL/L 04/30/2013 CHEM 14 1578718 ANION GAP 9 MEQ/L 04/30/2013 LIPID GRP HDL TEST 46 MG/DL 04/30/2013 LIPID GRP TRIG 148 MG/DL 04/30/2013 LIPID GRP TEST LDL 75 MG/DL 04/30/2013 LIPID GRP CHOL 151 MG/DL 04/30/2013 LIPID GRP RCHOL/HDL 3.28 RATIO 04/30/2013 TSH 0283695 TSH 3.341 uIU/ML 11/29/2012 CBC 0342062 WBC 8.4 10e9/L 11/29/2012 CBC 8128045 RBC 4.77 10e12/L 11/29/2012 CBC 0391776 HGB 14.9 g/dL 11/29/2012 CBC 6793642 HCT DET 44.2 % 11/29/2012 CBC 8646057 MCV 92.7 fL 11/29/2012 CBC 6860551 MCH 31.2 pg 11/29/2012 CBC 0401055 MCHC 33.7 g/dL 11/29/2012 CBC 3937704 PLT 253 10e9/L 11/29/2012 CBC 1204081 MPV 11.8 fL 11/29/2012 CBC 2914887 LARA % 54.9 % 11/29/2012 CBC 2485009 LY % 29.0 % 11/29/2012 CBC 2097111 MON % 10.4 % 11/29/2012 CBC 0301933 EOS % 5.1 % 11/29/2012 CBC 8920894 BASO % 0.6 % 11/29/2012 CBC 3326162 RDW 13.8 % 11/29/2012 CBC 0926694 ABS LARA 4.61 10e9/L 11/29/2012 CBC 0009655 ABS LYMPH 2.44 10e9/L 11/29/2012 CBC 6712556 ABS MONO 0.87 10e9/L 11/29/2012 CBC 5193171 ABS EOS 0.43 10e9/L 11/29/2012 CBC 4626519 ABS BASO 0.05 10e9/L 11/29/2012 CBC 1717523 RDW-SD 45.9 fL 11/29/2012 CHEM 14 2336161 AST 25 U/L 11/29/2012 CHEM 14 8428307 ALT 26 IU/L 11/29/2012 CHEM 14 3928363 BUN 25 MG/DL 11/29/2012 CHEM 14 4550954 ALBUMIN 4.4 GM/DL 11/29/2012 CHEM 14 9668068 CHLORIDE 106 MMOL/L 11/29/2012 CHEM 14 5464803 BILI TOT 0.4 MG/DL 11/29/2012 CHEM 14 9812198 ALK PHOS 86 U/L 11/29/2012 CHEM 14 6410107 SODIUM 141 MMOL/L 11/29/2012 CHEM 14 6213295 CREATININE 0.80 MG/DL 11/29/2012 CHEM 14 4794646 CALCIUM 9.7 MG/DL 11/29/2012 CHEM 14 6668054 POTASSIUM 4.0 MMOL/L 11/29/2012 CHEM 14 2299008 PROT TOT 6.6 GM/DL 11/29/2012 CHEM 14 5273590 GLUCOSE 112 MG/DL 11/29/2012 CHEM 14 4155449 BICARB 29 MMOL/L 11/29/2012 CHEM 14 4388698 ANION GAP 6 MEQ/L 11/29/2012 A1C HPLC 5438130 A1C HPLC 26697-6 5.5 % 11/29/2012 LIPID GRP HDL TEST 54 MG/DL 11/29/2012 LIPID GRP TRIG 77 MG/DL 11/29/2012 LIPID GRP TEST LDL 78 MG/DL 11/29/2012 LIPID GRP CHOL 147 MG/DL 11/29/2012 LIPID GRP RCHOL/HDL 2.72 RATIO 11/29/2012 FREE T4 0541716 FREE T4 1.23 NG/DL 11/29/2012 GFR CALC 7248707 GFR AA >60 ML/MIN 11/29/2012 GFR CALC 8730882 GFR NON-AA >60 ML/MIN 11/29/2012 CHEM 14 2839984 AST 23 U/L 08/07/2012 CHEM 14 3723828 ALT 34 IU/L 08/07/2012 CHEM 14 0073823 BUN 26 MG/DL 08/07/2012 CHEM 14 3355804 ALBUMIN 4.4 GM/DL 08/07/2012 CHEM 14 8689825 CHLORIDE 105 MMOL/L 08/07/2012 CHEM 14 6510527 BILI TOT 0.5 MG/DL 08/07/2012 CHEM 14 2292090 ALK PHOS 79 U/L 08/07/2012 CHEM 14 0174148 SODIUM 140 MMOL/L 08/07/2012 CHEM 14 8180204 CREATININE 0.71 MG/DL 08/07/2012 CHEM 14 4461084 CALCIUM 10.4 MG/DL 08/07/2012 CHEM 14 4667980 POTASSIUM 3.8 MMOL/L 08/07/2012 CHEM 14 7010167 PROT TOT 6.8 GM/DL 08/07/2012 CHEM 14 7443120 GLUCOSE 104 MG/DL 08/07/2012 CHEM 14 6363516 BICARB 27 MMOL/L 08/07/2012 CHEM 14 0979149 ANION GAP 8 MEQ/L 08/07/2012 A1C HPLC 4580412 A1C HPLC 34096-5 5.4 % 08/07/2012 FREE T4 6188954 FREE T4 1.11 NG/DL 08/07/2012 LIPID GRP HDL TEST 50 MG/DL 08/07/2012 LIPID GRP TRIG 127 MG/DL 08/07/2012 LIPID GRP TEST LDL 93 MG/DL 08/07/2012 LIPID GRP CHOL 168 MG/DL 08/07/2012 LIPID GRP 1740357 RCHOL/HDL 3.36 RATIO 08/07/2012 CBC 4181799 WBC 8.7 10e9/L 08/07/2012 CBC 6401371 RBC 4.67 10e12/L 08/07/2012 CBC 6769629 HGB 14.4 g/dL 08/07/2012 CBC 4354014 HCT DET 42.8 % 08/07/2012 CBC 5285546 MCV 91.6 fL 08/07/2012 CBC 5430121 MCH 30.8 pg 08/07/2012 CBC 2125149 MCHC 33.6 g/dL 08/07/2012 CBC 3051470 PLT 271 10e9/L 08/07/2012 CBC 0038142 MPV 12.3 fL 08/07/2012 CBC 4032011 LARA % 50.6 % 08/07/2012 CBC 3003536 LY % 34.9 % 08/07/2012 CBC 3751532 MON % 9.1 % 08/07/2012 CBC 8961785 EOS % 5.1 % 08/07/2012 CBC 6720655 BASO % 0.3 % 08/07/2012 CBC 9374035 RDW 13.6 % 08/07/2012 CBC 8102370 ABS LARA 4.40 10e9/L 08/07/2012 CBC 1310351 ABS LYMPH 3.04 10e9/L 08/07/2012 CBC 2376846 ABS MONO 0.79 10e9/L 08/07/2012 CBC 0214236 ABS EOS 0.44 10e9/L 08/07/2012 CBC 4766708 ABS BASO 0.03 10e9/L 08/07/2012 CBC 1926203 RDW-SD 44.1 fL 08/07/2012 TSH 3993870 TSH 7.419 uIU/ML 08/07/2012 GFR CALC 3323266 GFR AA >60 ML/MIN 08/07/2012 GFR CALC 5887904 GFR NON-AA >60 ML/MIN 08/07/2012 A1C HPLC 0526102 A1C HPLC 96106-2 5.3 % 02/21/2012 TSH 1321824 TSH 0.832 uIU/ML 02/16/2012 FREE T4 9641342 FREE T4 1.04 NG/DL 02/16/2012 GFR CALC 5438344 GFR AA >60 ML/MIN 02/16/2012 GFR CALC 4642496 GFR NON-AA >60 ML/MIN 02/16/2012 [facility] GLUCOSE 112 MG/DL 02/16/2012 BMP CREATININE 0.65 MG/DL 02/16/2012 BMP BUN 17 MG/DL 02/16/2012 BMP SODIUM 144 MMOL/L 02/16/2012 BMP POTASSIUM 4.0 MMOL/L 02/16/2012 BMP CHLORIDE 107 MMOL/L 02/16/2012 BMP BICARB 29 MMOL/L 02/16/2012 [facility] ANION GAP 8 MEQ/L 02/16/2012 BMP CALCIUM 9.5 MG/DL 02/16/2012 CBC 6840417 WBC 7.1 10e9/L 02/16/2012 CBC 1622838 RBC 4.47 10e12/L 02/16/2012 CBC 1743598 HGB 13.5 g/dL 02/16/2012 CBC 4214129 HCT DET 40.7 % 02/16/2012 CBC 1874002 MCV 91.1 fL 02/16/2012 CBC 6297051 MCH 30.2 pg 02/16/2012 CBC 3734659 MCHC 33.2 g/dL 02/16/2012 CBC 3343956 PLT 238 10e9/L 02/16/2012 CBC 9004558 MPV 11.4 fL 02/16/2012 CBC 2942190 LARA % 55.7 % 02/16/2012 CBC 7127471 LY % 29.6 % 02/16/2012 CBC 9622776 MON % 9.2 % 02/16/2012 CBC 6599580 EOS % 5.1 % 02/16/2012 CBC 6327584 BASO % 0.4 % 02/16/2012 CBC 5964983 RDW 13.0 % 02/16/2012 CBC 4367062 ABS LARA 3.95 10e9/L 02/16/2012 CBC 4202872 ABS LYMPH 2.10 10e9/L 02/16/2012 CBC 2739389 ABS MONO 0.65 10e9/L 02/16/2012 CBC 4085228 ABS EOS 0.36 10e9/L 02/16/2012 CBC 8683088 ABS BASO 0.03 10e9/L 02/16/2012 CBC 6032804 RDW-SD 42.4 fL 02/16/2012 URINALYSIS NONAUTO W/O SCOPE 66692 Specific Ericson 1.015 DateTime(Free Text in Aprima) URINALYSIS NONAUTO W/O SCOPE 17067 PH 7 DateTime(Free Text in Apr[employer]) URINALYSIS NONAUTO W/O SCOPE 12588 GLUCOSE neg DateTime(Free Text in Apr[employer]) URINALYSIS NONAUTO W/O SCOPE 57720 Protein 1+ DateTime(Free Text in Apr[employer]) URINALYSIS NONAUTO W/O SCOPE 43499 Blood neg DateTime(Free Text in Apr[employer]) URINALYSIS NONAUTO W/O SCOPE 84432 Bilirubin neg DateTime(Free Text in Apr[employer]) URINALYSIS NONAUTO W/O SCOPE 57960 Ketones neg DateTime(Free Text in Apr[employer]) URINALYSIS NONAUTO W/O SCOPE 16981 Urobilinogen neg DateTime(Free Text in Apr[employer]) URINALYSIS NONAUTO W/O SCOPE 68026 Nitrite postive DateTime(Free Text in Apr[employer]) URINALYSIS NONAUTO W/O SCOPE 01487 Leukocytes 3+ DateTime(Free Text in Aprima) URINALYSIS NONAUTO W/O SCOPE 36954 Specific Ericson 1.030 DateTime(Free Text in Aprima) URINALYSIS NONAUTO W/O SCOPE 86520 PH 6 DateTime(Free Text in Aprima) URINALYSIS NONAUTO W/O SCOPE 85772 GLUCOSE neg DateTime(Free Text in Aprima) URINALYSIS NONAUTO W/O SCOPE 36472 Protein neg DateTime(Free Text in Apr[employer]) URINALYSIS NONAUTO W/O SCOPE 76577 Blood neg DateTime(Free Text in Apr[employer]) URINALYSIS NONAUTO W/O SCOPE 57103 Bilirubin neg DateTime(Free Text in Aprima) URINALYSIS NONAUTO W/O SCOPE 64474 Ketones neg DateTime(Free Text in Apr[employer]) URINALYSIS NONAUTO W/O SCOPE 01732 Urobilinogen neg DateTime(Free Text in Apr[employer]) URINALYSIS NONAUTO W/O SCOPE 36756 Nitrite neg DateTime(Free Text in Aprima) URINALYSIS NONAUTO W/O SCOPE 45464 Leukocytes trace DateTime(Free Text in Aprima) URINALYSIS NONAUTO W/O SCOPE 41463 Specific Ericson 1.005 DateTime(Free Text in Aprima) URINALYSIS NONAUTO W/O SCOPE 59246 PH 5 DateTime(Free Text in Aprima) URINALYSIS NONAUTO W/O SCOPE 91779 GLUCOSE neg DateTime(Free Text in Aprima) URINALYSIS NONAUTO W/O SCOPE 70907 Protein neg DateTime(Free Text in Apr[employer]) URINALYSIS NONAUTO W/O SCOPE 74221 Blood neg DateTime(Free Text in Aprima) URINALYSIS NONAUTO W/O SCOPE 71904 Bilirubin neg DateTime(Free Text in Aprima) URINALYSIS NONAUTO W/O SCOPE 09672 Ketones neg DateTime(Free Text in Aprima) URINALYSIS NONAUTO W/O SCOPE 79785 Urobilinogen neg DateTime(Free Text in Aprima) URINALYSIS NONAUTO W/O SCOPE 74776 Nitrite neg DateTime(Free Text in Aprima) URINALYSIS NONAUTO W/O SCOPE 99892 Leukocytes neg DateTime(Free Text in Aprima) UA 33270 Specific Ericson 1.030 DateTime(Free Text in Aprima) UA 22971 PH 5 DateTime(Free Text in Aprima) UA 38871 GLUCOSE neg DateTime(Free Text in Aprima) UA 57285 Protein trace DateTime(Free Text in Aprima) UA 81370 Blood large DateTime(Free Text in Aprima) UA 89481 Bilirubin neg DateTime(Free Text in Aprima) UA 41606 Ketones neg DateTime(Free Text in Aprima) UA 47026 Urobilinogen neg DateTime(Free Text in Aprima) UA 74360 Nitrite neg DateTime(Free Text in Aprima) UA 20003 Leukocytes large DateTime(Free Text in Apr) Review of Systems System Result Effective Dates Constitutional No anorexia 12/05/2016 Constitutional No night [...] effusion 07/10/2013 None Full Exam - General 1995 Constitutional general appearance Overall: well developed 06/03/2013 [...] rate 12/03/2012 None Full Exam - General 1995 [...] oriented 12/03/2012 None Full Exam - General 1995 Psychiatric [...] Procedure Codes Date DESTRUCT PREMALG LESION CPT-4: 05971Mpvbcso 12/05/2016 DESTRUCT PREMALG LES 2-14 CPT-4: 86910Ovwaqkw 12/05/2016 URINALYSIS NONAUTO W/O SCOPE CPT-4: 23845Ddekxvk 11/28/2016 ROCEPHIN, PER 250 MG CPT-4: I1475Tirhtqu 11/28/2016 PPPS, SUBSEQ VISIT CPT-4: G9043Bsjofat 11/07/2016 THER/PROPH/DIAG INJ SC/IM CPT-4: 28211Eqelple 11/07/2016 TRIAMCINOLONE ACET INJ NOS CPT-4: I9853Crjuzso 11/07/2016 ROCEPHIN, PER 250 MG CPT-4: A9806Cgdkqle 11/07/2016 THER/PROPH/DIAG INJ SC/IM CPT-4: 37704Hwmlboq 08/15/2016 TRIAMCINOLONE ACET INJ NOS CPT-4: S3027Cxhicxl 08/15/2016 ROCEPHIN, PER 250 MG CPT-4: L6055Wtdmfma 08/15/2016 URINALYSIS NONAUTO W/O SCOPE CPT-4: 70103Sbfifaa 05/05/2016 ROCEPHIN, PER 250 MG CPT-4: L1416Elzyrbq 12/07/2015 TRIAMCINOLONE ACET INJ NOS CPT-4: X8372Mqigxon 11/24/2015 ROCEPHIN, PER 250 MG CPT-4: R4136Shybvpk 11/24/2015 THER/PROPH/DIAG INJ SC/IM CPT-4: 43014Ykmwzcq 11/24/2015 THER/PROPH/DIAG INJ SC/IM CPT-4: 14463Jzoihww 08/27/2015 KETOROLAC TROMETHAMINE INJ CPT-4: Y1502Izmoxpr 08/27/2015 PROMETHAZINE HCL INJECTION CPT-4: D6544Zxsltsp 08/27/2015 THER/PROPH/DIAG INJ SC/IM CPT-4: 64525Svpuvus 08/10/2015 TRIAMCINOLONE ACET INJ NOS CPT-4: A9859Qjtbwhf 08/10/2015 ROCEPHIN, PER 250 MG CPT-4: Y9618Rtdsmou 08/10/2015 C WOUN RTS (CULTURE OTHR SPECIMN AEROBIC) CPT-4: 87773Cczddse 07/28/2015 THER/PROPH/DIAG INJ SC/IM CPT-4: 18947Iuwawzv 03/19/2015 TRIAMCINOLONE ACET INJ NOS CPT-4: D3824Itpatyt 03/19/2015 ROCEPHIN, PER 250 MG CPT-4: E0349Gywiheu 06/23/2014 TRIAMCINOLONE ACET INJ NOS CPT-4: B6329Sihkwsj 06/23/2014 INJ TRIGGER POINT 1/2 MUSCL CPT-4: 41382Okqiwyz 06/05/2014 URINALYSIS NONAUTO W/O SCOPE CPT-4: 47482Fnvkusi 02/11/2014 URINALYSIS NONAUTO W/O SCOPE CPT-4: 17129Wuzcflv 10/15/2013 ROCEPHIN, PER 250 MG CPT-4: F7249Fkyzitl 09/24/2013 THER/PROPH/DIAG INJ SC/IM CPT-4: 32717Crnhhjq 09/19/2013 ROCEPHIN, PER 250 MG CPT-4: C4330Zlerhie 09/19/2013 PRESCRIP TRANSMIT VIA ERX SY CPT-4: M3449Bgajudi 08/05/2013 ROCEPHIN, PER 250 MG CPT-4: K5414Uyyhyeo 07/10/2013 THER/PROPH/DIAG INJ SC/IM CPT-4: 35516Qxjmpjv 07/10/2013 TRIAMCINOLONE ACET INJ NOS CPT-4: B8294Imhgeih 07/10/2013 PRESCRIP TRANSMIT VIA ERX SY CPT-4: D4850Dzapvdo 07/10/2013 07603 EST. PATIENT, LEVEL III CPT-4: 95166Skjpqgk 06/03/2013 PRESCRIP TRANSMIT VIA ERX SY CPT-4: U7924Kcdtmau 06/03/2013 PRESCRIP TRANSMIT VIA ERX SY CPT-4: G6519Etjpcnw 05/07/2013 ROUTINE VENIPUNCTURE CPT-4: 72856Tzacbjx 04/30/2013 ROUTINE VENIPUNCTURE CPT-4: 68717Ouhzomi 11/29/2012 TRIAMCINOLONE ACET INJ NOS CPT-4: B9015Zqwmpys 09/24/2012 THER/PROPH/DIAG INJ SC/IM CPT-4: 91728Uhkhgzj 09/24/2012 URINALYSIS NONAUTO W/O SCOPE CPT-4: 93847Oinbksm 09/24/2012 PRESCRIP TRANSMIT VIA ERX SY CPT-4: K3210Ngsfqbr 09/24/2012 PRESCRIP TRANSMIT VIA ERX SY CPT-4: C0991Ysfyamc 09/10/2012 PRESCRIP TRANSMIT VIA ERX SY CPT-4: K7767Lgdqlpn 08/08/2012 ROUTINE VENIPUNCTURE CPT-4: 57847Oyewvqz 08/07/2012 ROUTINE VENIPUNCTURE CPT-4: 26828Otitwbx 02/16/2012 URINALYSIS NONAUTO W/O SCOPE CPT-4: 66528Kyusfhx 02/15/2012 ROCEPHIN, PER 250 MG CPT-4: B8909Luurguh 02/15/2012 PRESCRIP TRANSMIT VIA ERX SY CPT-4: P6090Zssziwr 02/15/2012 ROUTINE VENIPUNCTURE CPT-4: 90915Thrhhqp 11/08/2011 ROCEPHIN, PER 250 MG CPT-4: J3813Vhpypli 07/14/2011 THER/PROPH/DIAG INJ SC/IM CPT-4: 28956Vgzobza 07/14/2011 Influenza Virus Vaccine, Split Virus, >3 Yrs, IM CPT-4: 40635Nfbnrrn 05/23/2011 IMMUNIZATION ADMIN CPT-4: 80337Xmhvrtm 05/23/2011 THER/PROPH/DIAG INJ SC/IM CPT-4: 23717Ahyuowi 05/03/2011 ROCEPHIN, PER 250 MG CPT-4: W5403Nzcqjmh 05/03/2011 TRIAMCINOLONE ACET INJ NOS CPT-4: U8421Nfglnie 05/03/2011 Vital Signs Date Vital 12/05/2016 Blood Pressure 1: 122/72 Code: 8480-6 Heart Rate 1: 59 bpm Height: 4'11" SpO2: 98% Weight: 11/28/2016 Blood Pressure 1: 154/86 Code: 8480-6 BMI: 31.3 Code: 44975-9 Heart Rate 1: 64 bpm Height: 4'11" SpO2: 94% Temperature: 36.2 (C) / 97.2 (F) Weight: 155 lbs 11/07/2016 Blood Pressure 1: 128/64 Code: 8480-6 BMI: 31.5 Code: 60660-0 Heart Rate 1: 59 bpm Height: 4'11" SpO2: 97% Weight: 156 lbs 08/15/2016 Blood Pressure 1: 110/62 Code: 8480-6 BMI: 31.5 Code: 35272-7 Heart Rate 1: 76 bpm Height: 4'11" SpO2: 97% Weight: 156 lbs 06/07/2016 Blood Pressure 1: 120/80 Code: 8480-6 BMI: 32.9 Code: 50343-1 Heart Rate 1: 63 bpm Height: 4'11" SpO2: 93% Temperature: 36.5 (C) / 97.7 (F) Weight: 163 lbs 03/15/2016 Blood Pressure 1: 90/42 Code: 8480-6 Heart Rate 1: 65 bpm SpO2: 94% 03/14/2016 Blood Pressure 1: 188/110 Code: 8480-6 Heart Rate 1: 68 bpm SpO2: 96% 02/22/2016 Blood Pressure 1: 158/80 Code: 8480-6 BMI: 32.7 Code: 97155-1 Heart Rate 1: 71 bpm Height: 4'11" SpO2: 95% Weight: 162 lbs 12/07/2015 Blood Pressure 1: 140/88 Code: 8480-6 BMI: 32.9 Code: 44559-0 Heart Rate 1: 99 bpm Height: 4'11" SpO2: 94% Temperature: 35.9 (C) / 96.6 (F) Weight: 163 lbs 11/24/2015 Blood Pressure 1: 144/78 Code: 8480-6 BMI: 33.7 Code: 17555-2 Heart Rate 1: 60 bpm Height: 4'11" SpO2: 98% Temperature: 36.6 (C) / 97.9 (F) Weight: 167 lbs 08/27/2015 Blood Pressure 1: 164/82 Code: 8480-6 BMI: 32.3 Code: 96447-8 Heart Rate 1: 60 bpm Height: 4'11" SpO2: 93% Weight: 160 lbs 08/10/2015 Blood Pressure 1: 130/60 Code: 8480-6 BMI: 32.5 Code: 08620-5 Heart Rate 1: 64 bpm Height: 4'11" SpO2: 97% Weight: 161 lbs 07/28/2015 Blood Pressure 1: 124/68 Code: 8480-6 BMI: 32.5 Code: 74547-1 Heart Rate 1: 69 bpm Height: 4'11" SpO2: 97% Weight: 161 lbs 06/11/2015 Blood Pressure 1: 148/80 Code: 8480-6 BMI: 32.9 Code: 85881-7 Heart Rate 1: 70 bpm Height: 4'11" SpO2: 94% Weight: 163 lbs 03/19/2015 Blood Pressure 1: 150/102 Code: 8480-6 Blood Pressure 2: 152/92 Code: 8480-6 BMI: 32.5 Code: 29887-5 Heart Rate 1: 71 bpm Height: 4'11" SpO2: 96% Weight: 161 lbs 01/07/2015 Blood Pressure 1: 126/84 Code: 8480-6 Heart Rate 1: 80 bpm Height: 4'11" 09/23/2014 Blood Pressure 1: 112/72 Code: 8480-6 BMI: 33.9 Code: 26140-3 Heart Rate 1: 72 bpm Height: 4'11" Weight: 168 lbs 08/05/2014 Blood Pressure 1: 140/86 Code: 8480-6 BMI: 33.3 Code: 70290-4 Height: 4'11" Weight: 165 lbs 06/23/2014 Blood Pressure 1: 132/70 Code: 8480-6 BMI: 32.9 Code: 70879-6 Heart Rate 1: 58 bpm Height: 4'11" Temperature: 36.0 (C) / 96.8 (F) Weight: 163 lbs 06/05/2014 Blood Pressure 1: 121/85 Code: 8480-6 BMI: 34.3 Code: 88551-2 Height: 4'11" Weight: 170 lbs 04/03/2014 Blood Pressure 1: 128/80 Code: 8480-6 Heart Rate 1: 88 bpm Weight: 167 lbs 03/07/2014 Blood Pressure 1: 122/82 Code: 8480-6 BMI: 33.9 Code: 19133-7 Heart Rate 1: 68 bpm Height: 4'11" Weight: 168 lbs 11/21/2013 Blood Pressure 1: 100/58 Code: 8480-6 BMI: 33.7 Code: 30879-6 Heart Rate 1: 64 bpm Height: 4'11" Weight: 167 lbs 09/24/2013 Blood Pressure 1: 148/88 Code: 8480-6 Heart Rate 1: 68 bpm Weight: 09/19/2013 Blood Pressure 1: 120/80 Code: 8480-6 BMI: 33.9 Code: 40796-8 Heart Rate 1: 80 bpm Height: 4'11" Temperature: 36.9 (C) / 98.5 (F) Weight: 168 lbs 08/05/2013 Blood Pressure 1: 128/80 Code: 8480-6 BMI: 34.3 Code: 80140-2 Heart Rate 1: 64 bpm Height: 4'11" Temperature: 36.2 (C) / 97.2 (F) Weight: 170 lbs 07/10/2013 Blood Pressure 1: 120/84 Code: 8480-6 BMI: 36.0 Code: 85176-9 Heart Rate 1: 90 bpm Height: 4'11" SpO2: 97% Temperature: 36.8 (C) / 98.2 (F) Weight: 178 lbs 06/03/2013 Blood Pressure 1: 136/94 Code: 8480-6 BMI: 34.7 Code: 58206-6 Heart Rate 1: 68 bpm Height: 4'11" Temperature: 36.7 (C) / 98.0 (F) Weight: 172 lbs 05/13/2013 Blood Pressure 1: 132/90 Code: 8480-6 Heart Rate 1: 68 bpm 05/07/2013 Blood Pressure 1: 168/100 Code: 8480-6 BMI: 34.3 Code: 67445-1 Heart Rate 1: 76 bpm Height: 4'11" Weight: 170 lbs 12/03/2012 Blood Pressure 1: 142/78 Code: 8480-6 BMI: 33.5 Code: 07221-8 Heart Rate 1: 76 bpm Height: 4'11" Weight: 166 lbs 09/24/2012 Blood Pressure 1: 116/70 Code: 8480-6 Heart Rate 1: 68 bpm Respiratory Rate: 16 bpm Temperature: 36.9 (C) / 98.4 (F) Weight: 162 lbs 09/10/2012 Blood Pressure 1: 116/80 Code: 8480-6 BMI: 33.7 Code: 35867-7 Heart Rate 1: 76 bpm Height: 4'11" [...] 1: 149/85 Code: 8480-6 BMI: 32.9 Code: 97059-3 Heart Rate 1: 79 bpm Height: 4'11" Weight: 164 lbs 05/03/2011 Blood Pressure 1: 122/79 Code: 8480-6 BMI: 30.8 Code: 86802-0 Heart Rate 1: 72 bpm Height: 5'1" Weight: 163 lbs 04/25/2011 Blood Pressure 1: 137/84 Code: 8480-6 BMI: 31.0 Code: 01335-9 Heart Rate 1: 63 bpm Height: 5'1" Respiratory Rate: 20 bpm Weight: 164 lbs Functional Status No Functional Status data History of Present Illness Symptom Name Status Result Effective Date Notes skin lesion Onset and Resolution ongoing 12/05/2016 [...] Quality chronic 08/01/2011 states went shopping on [employer] over night without taking any of medications [...] data Encounters Encounter Performer Location Codes Date ([id number]) [id number] EST. PATIENT, LEVEL III Diagnosis: Actinic keratosis[ICD10: L57.0] Diagnosis: Major depressive disorder, recurrent, moderate[ICD10: F33.1] Melba Goldman MD, [facility] CPT-4: 25060 12/05/2016 ([id number]) 61422 EST. PATIENT, LEVEL III Diagnosis: Acute recurrent maxillary sinusitis[ICD10: J01.01] Diagnosis: Dysuria[ICD10: R30.0] Shahida Goldman MD, [facility] CPT-4: 95013 11/28/2016 83730 EST. PATIENT, LEVEL IV Diagnosis: Other acute sinusitis[ICD10: J01.80] Diagnosis: Acute laryngopharyngitis[ICD10: J06.0] Diagnosis: Other allergic rhinitis[ICD10: J30.89] Isabelle Goldman MD, [facility] CPT- 4: 19219 08/15/2016 [id number]) 83678 EST. PATIENT, LEVEL III Diagnosis: Acute recurrent maxillary sinusitis[ICD10: J01.01] Diagnosis: Low back pain[ICD10: M54.5] Shahida Goldman MD, [facility] CPT-4: 22637 06/07/2016 ([id number]) Miscellaneous no charge Diagnosis: Essential (primary) hypertension[ICD10: I10] Shahida Goldman MD, [facility] CPT-4: 80482 03/15/2016 60210 EST. PATIENT, LEVEL IV Diagnosis: Essential (primary) hypertension[ICD10: I10] Diagnosis: Headache[ICD10: R51] Diagnosis: Generalized anxiety disorder[ICD10: F41.1] Shahida Goldman MD, [facility] CPT-4: 02569 03/14/2016 31600 EST. PATIENT, LEVEL III Diagnosis: Laceration without foreign body, left lower leg, initial encounter[ICD10: S81.812A] Isabelle Goldman MD, [facility] CPT-4: 78344 02/22/2016 ([id number]) 31304 EST. PATIENT, LEVEL III Diagnosis: Acute recurrent maxillary sinusitis[ICD10: J01.01] Diagnosis: Cough[ICD10: R05] Diagnosis: Allergic rhinitis due to pollen[ICD10: J30.1] Shahida Goldman MD, [facility] CPT-4: 14611 12/07/2015 ([id number]) 13703 EST. PATIENT, LEVEL IV Diagnosis: Essential (primary) hypertension[ICD10: I10] Diagnosis: Acute recurrent maxillary sinusitis[ICD10: J01.01] Diagnosis: Generalized anxiety disorder[ICD10: F41.1] Diagnosis: Cervicalgia[ICD10: M54.2] Diagnosis: Generalized intra-abdominal and pelvic swelling, mass and lump[ICD10: R19.07] Melba Goldman MD, [facility] CPT-4: 80352 11/24/2015 [id number] EST. PATIENT, LEVEL III Diagnosis: Other migraine, intractable, without status migrainosus[ICD10: G43.819] Isabelle Goldman MD, [facility] CPT-4: 00810 08/27/2015 78044 EST. PATIENT, LEVEL III Diagnosis: Acute recurrent maxillary sinusitis[ICD10: J01.01] Diagnosis: Candidal stomatitis[ICD10: B37.0] Diagnosis: Acute laryngopharyngitis[ICD10: J06.0] Isabelle Goldman MD, [facility] CPT- 4: 54678 08/10/2015 10732 EST. PATIENT, LEVEL III Diagnosis: Superficial foreign body of left hand, initial encounter[ICD10: S60.552A] Melba Goldman MD, [facility] CPT-4: 20551 07/28/2015 ([id number]) 75744 EST. PATIENT, LEVEL III Diagnosis: Essential (primary) hypertension[ICD10: I10] Diagnosis: Tinea cruris[ICD10: B35.6] Diagnosis: Abnormal levels of other serum enzymes[ICD10: R74.8] Shahida Goldman MD, [facility] CPT-4: 98954 06/11/2015 ([id number]) 96708 EST. PATIENT, LEVEL IV Diagnosis: ESSENTIAL HYPERTENSION[ICD9: 401.9] Diagnosis: Hypothyroid[ICD9: 244.9] Diagnosis: ALLERGIC RHINITIS[ICD9: 477.9] Diagnosis: Anxiety[ICD9: 300.00] Diagnosis: Sleep apnea[ICD9: 780.57] Shahida Goldman MD, [facility] CPT-4: 29299 03/19/2015 ([id number]) 52305 EST. PATIENT, LEVEL III Diagnosis: ACUTE SINUSITIS[ICD9: 461.9] Celi Goldman MD, [facility] CPT-4: 72732 01/07/2015 ([id number]) 04550 EST. PATIENT, LEVEL III Diagnosis: Conjunctivitis[ICD9: 372.30] Shahida Goldman MD, [facility] CPT-4: 54553 09/23/2014 62194 EST. PATIENT, LEVEL II Diagnosis: Noninfected skin tear of leg[ICD9: 891.0] Shahida Goldman MD, [facility] CPT-4: 80473 08/05/2014 ([id number]) 86869 EST. PATIENT, LEVEL III Diagnosis: Chronic maxillary sinusitis[ICD9: 473.0] Shahida Goldman MD, [facility] CPT-4: 59740 06/23/2014 75701 EST. PATIENT, LEVEL II Diagnosis: Headache[ICD9: 784.0] Shahida Goldman MD, [facility] CPT-4: 93122 06/05/2014 ([id number]) 02988 EST. PATIENT, LEVEL III Diagnosis: Abrasion of right leg[ICD9: 916.0] Diagnosis: Headache[ICD9: 784.0] Diagnosis: ALLERGIC RHINITIS[ICD9: 477.9] Shahida Goldamn MD, [facility] CPT-4: 41207 04/03/2014 47280 EST. PATIENT, LEVEL II Diagnosis: Tinea corporis[ICD9: 110.5] Diagnosis: Exposure to scabies[ICD9: V01.89] Shahida Goldman MD, [facility] CPT- 4: 05088 03/07/2014 ([id number]) 29083 EST. PATIENT, LEVEL III Diagnosis: ESSENTIAL HYPERTENSION[SNOMED: 05928081] Diagnosis: OSTEOARTH NOS-UNSPEC[ICD9: 715.90] Diagnosis: Lumbago[ICD9: 724.2] Diagnosis: Cervicalgia[ICD9: 723.1] Shahida Goldman MD [facility] CPT-4: 25596 11/21/2013 ([id number]) 92054 EST. PATIENT, LEVEL III Diagnosis: DEPRESSIVE DISORDER NEC[ICD9: 311] Diagnosis: Paronychia[ICD9: 681.9] Melba Goldman MD [facility] CPT-4: 46663 09/24/2013 ([id number]) 15057 EST. PATIENT, LEVEL III Diagnosis: Paronychia[ICD9: 681.9] Diagnosis: Cellulitis[ICD9: 682.9] Melba Goldman MD [facility] CPT-4: 73899 09/19/2013 ([id number]) 00842 EST. PATIENT, LEVEL III Diagnosis: Conjunctivitis[ICD9: 372.30] Diagnosis: Thrush[ICD9: 112.0] Shahida Goldman MD, [facility] CPT-4: 95648 08/05/2013 ([id number]) 59090 EST. PATIENT, LEVEL III Diagnosis: ACUTE MAXILLARY SINUSITIS[ICD9: 461.0] Diagnosis: COUGH[ICD9: 786.2] Diagnosis: Insomnia[ICD9: 780.52] Diagnosis: ESOPHAGEAL REFLUX[ICD9: 530.81] Melba Goldman MD, [facility] CPT-4: 20503 07/10/2013 ([id number]) Miscellaneous no charge Diagnosis: ESSENTIAL HYPERTENSION[SNOMED: 98223247] Melba Goldman MD, [facility] CPT-4: 62945 05/13/2013 ([id number]) 65856 EST. PATIENT, LEVEL IV Diagnosis: ESSENTIAL HYPERTENSION[SNOMED: 56512248] Diagnosis: HYPOTHYROIDISM[ICD9: 244.9] Diagnosis: OSTEOARTH NOS-UNSPEC[ICD9: 715.90] Melba Goldman MD, [facility] CPT- 4: 21697 05/07/2013 ([id number]) 14895 EST. PATIENT, LEVEL IV Diagnosis: Osteoarthritis[ICD9: 715.90] Diagnosis: Knee pain, bilateral[ICD9: 719.46] Diagnosis: Hip pain[ICD9: 719.45] Melba Goldman MD [facility] CPT-4: 55349 12/03/2012 ([id number]) 42701 EST. PATIENT, LEVEL III Diagnosis: Thrush[ICD9: 112.0] Melba Goldman MD, [facility] CPT-4: 70085 09/24/2012 ([id number]) 55544 EST. PATIENT, LEVEL IV Diagnosis: ESSENTIAL HYPERTENSION[SNOMED: 81542116] Diagnosis: Thrush[ICD9: 112.0] Diagnosis: Sleep apnea[ICD9: 780.57] Melba Goldman MD, [facility] CPT-4: 83717 09/10/2012 ([id number]) 13420 EST. PATIENT, LEVEL IV Diagnosis: Esophageal reflux[ICD9: 530.81] Diagnosis: Hypothyroid[ICD9: 244.9] Diagnosis: JOINT PAIN-MULT JOINTS[ICD9: 719.49] Diagnosis: ALLERGIC RHINITIS[ICD9: 477.9] Melba Goldman MD, [facility] CPT-4: 64258 08/08/2012 ([id number]) 66292 EST. PATIENT, LEVEL IV Diagnosis: Urinary frequency[ICD9: 788.41] Diagnosis: EDEMA[ICD9: 782.3] Diagnosis: HYPOTHYROIDISM[ICD9: 244.9] Diagnosis: Fatigue[ICD9: 780.79] Melba Goldman MD, [facility] CPT-4: 44725 02/15/2012 ([id number]) 59400 EST. PATIENT, LEVEL IV Diagnosis: Abdominal pain[ICD9: 789.00] Diagnosis: Fatigue[ICD9: 780.79] Diagnosis: Nausea[ICD9: 787.02] Melba Goldman MD, [facility] CPT-4: 48078 11/10/2011 [id number] EST. PATIENT, LEVEL IV Diagnosis: ESSENTIAL HYPERTENSION[SNOMED: 96163932] Diagnosis: DIARRHEA[ICD9: 787.91] Diagnosis: DEPRESSIVE DISORDER NEC[ICD9: 311] Diagnosis: Irritable bowel disease[ICD9: 564.1] Melba Goldman MD, [facility] CPT- 4: 77799 08/01/2011 [id number] EST. PATIENT, LEVEL III Diagnosis: ACUTE SINUSITIS[ICD9: 461.9] Diagnosis: Cough[ICD9: 786.2] Shahida Goldman MD, [facility] CPT-4: 25122 07/14/2011 [id number] EST. PATIENT, LEVEL IV Diagnosis: VACCIN FOR INFLUENZA[ICD9: V04.81] Diagnosis: ESSENTIAL HYPERTENSION[SNOMED: 45746383] Diagnosis: GENERALIZED ANXIETY DISEASE[ICD9: 300.02] Diagnosis: SLEEP DISTURBANCES[ICD9: 780.50] Shahida Goldman MD, [facility] CPT- 4: 06765 05/23/2011 [id number] EST. PATIENT, LEVEL III Diagnosis: ACUTE SINUSITIS[ICD9: 461.9] Diagnosis: ALLERGIC RHINITIS[ICD9: 477.9] Diagnosis: Cough[ICD9: 786.2] Shahida Goldman MD, [facility] CPT-4: 89748 05/03/2011 EST. PATIENT, LEVEL IV Diagnosis: ESSENTIAL HYPERTENSION[SNOMED: 78151165] Diagnosis: DEPRESSIVE DISORDER NEC[ICD9: 311] Diagnosis: Fatigue[ICD9: 780.79] Shahida Goldman MD, [facility] CPT-4: 42372 04/25/2011 Plan of Care Planned Activity Notes Codes Status Date Visit Plan: Wound Instructions - Pt was [...] this patient. 12/05/2016 [facility]ment: [phone] [facility] [facility] 12/05/2016 Patient Education: Patient Medication Summary Completed 12/05/2016 Visit Plan: Sinusitis - Pt has acute infection - pain in face, maxillary region, Pt informed to use decongestant, RX given to patient, sinus rinses also recommended. Call if symptoms do not show improvement.Dysuria-culture urine 11/28/2016 [facility]ment: [phone] [phone] (15 min) Moderate 11/28/2016 Patient Education: [...] of control. 11/07/2016 Appointment: Isabel[phone] [facility] [facility] - Annual Wellness Visit 11/07/2016 Patient [...] allergy spray. 08/15/2016 Appointment: Isabelle Orozco [facility]Ptel[facility] (15 min) Moderate 08/15/2016 Patient Education: [...] use. 06/07/2016 Appointment: [phone] [phone] (10 min) Simple 06/07/2016 Patient Education: [...] today 03/14/2016 Appointment: Shahida Manzo WPtel: [phone] [phone] (15 min) Moderate 03/14/2016 Patient Education: Patient Medication Summary Completed 03/14/2016 Care Plan: COMPLETE CBC AUTOMATED LOINC : 99672-5 Pending 03/14/2016 Visit Plan: Cellulitis - The patient was instructed in appropriate wound care. The patient was instructed to use the antibiotic ointment as per RX. The patient is to call for any change in symptoms, increase in size of the lesion, increase in pain. 02/22/2016 Appointment: Isabel[facility]roz[facility] [phone] [facility] (15 min) Moderate 02/22/2016 Patient Education: [...] pt to follow up with specialist at [address] - she needs to pursue treatment.Anxietly - medications unchanged.colonoscopy with dr. dai 11/24/2015 Appointment: Melba Goldman [facility]Ptel[facility] (30 min) [facility] 11/24/2015 Patient Education: Patient Medication Summary Completed 11/24/2015 Patient Education: Obesity Completed 11/24/2015 Patient Education: Hypertension Completed 11/24/2015 Patient Education: .Cervicalgia Neck Pain Completed 11/24/2015 Care Plan: Referral Order SNOMED-CT : [id number] Ordered 11/24/2015 Visit Plan: Acute Migraine - [...] to monitor 06/11/2015 Appointment: Shahida Manzo WPtel: [address] [place], [place] [phone] (15 min) Moderate 06/11/2015 Patient Education: Patient [...] Sleep apnea-patient needs new CPAP-will contact [facility] patient 03/19/2015 Visit Plan: Hypertension - elevated [...] Sleep apnea-patient needs new CPAP-will contact [facility] patient Pt reports that she uses her [...] OFFICE Sleep apnea-patient needs new CPAP-[facility] contact [facility] Pt reports that she uses [...] Patient Medication Summary Completed 01/07/2015 Patient Education: [facility] - Saving AutoInj - 18+ - [...] Keep areas dryExposure to scabies-RX sent to [facility]. 03/07/2014 Appointment: Melba Goldman [facility]Ptel[facility] rash 03/07/2014 Patient Education: Patient Medication [...] about change in blood pressure readings at home.Cdwsejl-ielatjrfmsq-hrglrnhn duragesic patch-appt with Dr Ortiz for pain management 11/21/2013 Appointment: Shahida Manzo WPtel: [address] [place], [place] [phone] Follow up 11/21/2013 Patient Education: Patient Medication Summary Completed 11/21/2013 Patient Education: Hypertension Completed 11/21/2013 Patient Education: .Cervicalgia Neck Pain Completed 11/21/2013 Appointment: Melba Goldman WPtel: [facility] Other 11/19/2013 Appointment: Melba Goldman WPtel: [address] [place], [place] [phone] Follow up 11/06/2013 Appointment: Melba Goldman WPtel: [address] [place] [address] Lab Draw 10/15/2013 Patient Education: Patient Medication [...] AT BEDTIME 09/24/2013 Appointment: Shahida Manzo WPtel: [phone] Other 09/24/2013 Patient Education: Patient Medication Summary Completed 09/24/2013 Visit Plan: Paronychia/Cellulitis - continue with oral antibiotics as previously directed, return to clinic as previously directed, call for acute change in symptoms, worsening redness, warmth, discharge. 09/19/2013 Appointment: Melba Goldman WPtel: [address] [place], [place] [phone] Other 09/19/2013 Patient Education: Patient Medication Summary Completed 09/19/2013 Visit Plan: Conjunctivitis - rx for eye drops/lube sent electronically to the patient's pharmacy. The patient has been instructed to cleanse affected eye with warm washcloth, then place medication into affected eye four times daily.Thrush- refill nystatin-call if symptoms do not resolve 08/05/2013 Appointment: Shahida Manzo WPtel: [phone] [facility] 08/05/2013 Patient Education: Patient Medication Summary [...] improvement. 06/03/2013 Appointment: Mel[phone] [facility] Follow up 06/03/2013 Patient Education: Patient Medication Summary Completed 06/03/2013 Patient Education: Hypertension Completed 06/03/2013 Appointment: [phone] [facility] Nurse Visit 05/13/2013 Patient Education: Patient Medication [...] control. 05/07/2013 Appointment: [phone] [facility] Follow up 05/07/2013 Patient Education: Patient Medication Summary Completed 05/07/2013 Patient Education: Hypertension Completed 05/07/2013 Patient Education: Patient Medication Summary Completed 04/30/2013 Patient Education: Hypertension Completed 04/30/2013 Visit Plan: Arthritis- occasionally uncontrolled symptoms- recommend pt to take antiinflammatory as directed for pain control.Use tylenol for break through pain symptoms. 12/03/2012 Appointment: [phone] [facility] Follow up 12/03/2012 Patient Education: Patient [...] resolve 09/24/2012 Appointment: [phone] [phone] [facility] 09/24/2012 Patient Education: Patient Medication Summary Completed [...] with diflucan 09/10/2012 Appointment: Melba Goldman [facility]el[facility] [address] [facility] Follow up 09/10/2012 Patient Education: Patient [...] symptoms. 08/08/2012 Appointment: Shahida Manzo WPtel: [address] [place], [place] [phone] Follow up 08/08/2012 Patient Education: Patient Medication Summary Completed 08/08/2012 Patient Education: Patient Medication Summary Completed 08/07/2012 Patient Education: Hypertension Completed 08/07/2012 Appointment: Melba Goldman WPtel: [address] [place], [place] [phone] Lab Draw 02/16/2012 Patient Education: Patient Medication [...] Needs labs. 02/15/2012 Appointment: Melba Goldman WPtel: [facility] Other 02/15/2012 Patient Education: Patient Medication Summary Completed 02/15/2012 Visit Plan: Abdominal pain - ultrasound tomorrow AMnothing to eat before the ultrasound from 11pm tonight bland diet.Nausea - worse with fatty foods, recommended low fat/bland diet, call if symptoms worsening. 11/10/2011 Appointment: Melba Goldman WPtel: [facility] Other 11/10/2011 Patient Education: Patient Medication [...] stools. 08/01/2011 Appointment: [phone] [facility] Other 08/01/2011 Patient Education: Patient Medication Summary Completed 08/01/2011 Patient Education: High Blood Pressure: Essential Hypertension Completed 08/01/2011 Visit Plan: Sinusitis - Pt has acute infection - pain in face, maxillary region, Pt informed to use decongestant, RX given to patient, sinus rinses also recommended. Call if symptoms do not show improvement. Cough-kishore zurita 07/14/2011 Appointment: Shah[facility]el[facility] [phone] [phone] Other 07/14/2011 Patient Education: Patient Medication Summary [...] the office. 05/23/2011 Appointment: Shahida Manzo WPtel: [address] [place] [address] Other 05/23/2011 Patient Education: Patient Medication Summary [...] cough med 05/03/2011 Appointment: Shahida Manzo WPtel: [address] [place] [address] [place] Other 05/03/2011 Patient Education: Patient Medication [...] her symptoms. 04/25/2011 Appointment: Shahida Manzo WPtel: [address] [place] [phone] Other 04/25/2011 Patient Education: Patient Medication Summary Completed 04/25/2011 Referral: Matthew Dai Referral Appointment Requested Referral: Matthew Dai Information faxed to Dr. Dai. Their office to book. Patient informed. Completed Instructions Comment . Hypertension - uncontrolled - the patient's [...] tylenol for break through pain symptoms. . Acute Migraine - pt has chronic [...] OFFICE Sleep apnea-patient needs new CPAP-will contact [facility] TAPER OFF OF [employer]MB[employer]-TAKE EVERY [...] OFFICE Sleep apnea-patient needs new CPAP-will contact [facility] Pt reports that she uses [...] OFFICE Sleep apnea-patient needs new CPAP-will contact [facility] patient Pt reports that she uses her [...] in the nasal steroid allergy spray. . Tinea-discussed natural and expected course of this diagnosis and to alert me if symtpoms do not follow expect course, or if any worse. RX sent to patient's pharmacy. Keep areas dry Exposure to scabies-RX [facility] to [facility]. . Abdominal pain - ultrasound tomorrow AM [...] mask fitted lindsay. Thrush- treating with diflucan TAKE A PROBIOTIC TWICE DAILY WHILE ON [...] has been appropriately prescribed for this patient. Edarbi 40mg daily Labs now EKG . [...] change in blood pressure readings at home. Yrjarrv-ddpngnujzwn-trtnnzgn duragesic patch-appt with Dr Ortiz for pain [...] renal function or other disease process. . Cellulitis - The patient was instructed [...] do not show improvement. Dysuria-culture urine . Sinusitis - Pt has acute infection - pain in face, maxillary region, Pt informed to use decongestant, RX given to patient, sinus rinses also recommended. Call if symptoms do not show improvement. Cough-tessalon pearles
--- OUTSIDE RECORDS SUMMARY | 2019-03-08 14:44 | XMS REPORT | CCD ---
Author Author [facility] Address [address] [place] [address] Phone Care Team Providers Care Reliability Engineer Name Role Phone PP Unavailable CCM Unavailable Summary Purpose Interface Exchange Insurance Providers Payer name Policy type / Coverage type Covered libertarian ID Effective Begin Date Effective End Date [employer] Medicare Part B [id number] Unknown Family history Son Diagnosis Age At Onset Crohn's disease Unknown Brother Diagnosis Age At Onset Cardiovascular disease Unknown Mother Diagnosis Age At Onset Hypertension Unknown Father Diagnosis Age At Onset Cardiovascular disease Unknown Social History Social History Element Codes Description Effective Dates Marital status Unknown 04/22/2011 Number of children Unknown 3 1 son -Crohns 04/22/[address]: 973411294 Nonsmoker 04/22/2011 Allergies, Adverse Reactions, Alerts Substance [...] hydrocodone 10 mg-acetaminophen 325 mg tablet RxNorm: 213962 Tablet(s) PO TAKE ONE TO TWO TABLETS BY MOUTH EVERY 6 HOURS NEEDED FOR PAIN 11/13/2018 11/27/2018 Inactive losartan 100 mg tablet RxNorm: 754224 1 Tablet(s) PO daily 11/13/2018 05/11/2019 Active Synthroid 112 mcg tablet RxNorm: 319208 1 Tablet(s) PO daily 11/01/2018 04/29/2019 Active Brand name only! Dosage change! Synthroid 112 mcg tablet RxNorm: 821886 1 Tablet(s) PO daily 11/01/2018 10/31/2018 Inactive Brand name only! Dosage change! losartan 50 mg tablet RxNorm: 556748 1 Tablet(s) PO daily 10/30/2018 11/12/2018 Inactive Tamiflu 75 mg capsule RxNorm: 225217 1 Capsule(s) PO daily 10/30/2018 11/08/2018 Inactive Synthroid 100 mcg tablet RxNorm: 778793 1 Tablet(s) PO daily 10/30/2018 10/31/2018 Inactive Brand name only! Lexapro 20 mg tablet RxNorm: 091909 TAKE ONE AND ONE-HALF TABLET BY MOUTH DAILY 10/23/2018 10/17/2019 Active alprazolam 0.25 mg tablet RxNorm: 034712 1 Tablet(s) PO TID as needed 10/10/2018 01/07/2019 Active polymyxin B sulfate 10,000 unit-trimethoprim 1 mg/mL eye drops RxNorm: 038869 2 Drop(s) ophthalmic (eye) QID 10/08/2018 10/14/2018 Inactive hydrocodone 10 mg-acetaminophen 325 mg tablet RxNorm: 916895 Tablet(s) PO TAKE ONE TO TWO TABLETS BY MOUTH EVERY 6 HOURS NEEDED FOR PAIN 09/11/2018 09/25/2018 Inactive piroxicam 20 mg capsule RxNorm: 545554 TAKE ONE CAPSULE BY MOUTH DAILY 08/09/2018 01/05/2019 Active trazodone 50 mg tablet RxNorm: 098945 TAKE ONE AND ONE-HALF (1 1/2) TABLET BY MOUTH AT BEDTIME. MAY INCREASE TO 2 TABLETS AT BEDTIME NEEDED 08/02/2018 11/19/2018 Inactive Nexium 40 mg capsule,delayed release RxNorm: 484433 TAKE ONE CAPSULE BY MOUTH TWICE A DAY 07/23/2018 11/19/2018 Inactive Bystolic 5 mg tablet RxNorm: 546646 1 Tablet(s) PO daily to take with 10 mg daily to equal 15mg daily 07/17/2018 10/29/2018 Inactive alprazolam 0.25 mg tablet RxNorm: 104990 1 Tablet(s) PO TID as needed 07/16/2018 10/29/2018 Inactive hydrocodone 10 mg-acetaminophen 325 mg tablet RxNorm: 451871 Tablet(s) PO TAKE ONE TO TWO TABLETS BY MOUTH EVERY 6 HOURS NEEDED FOR PAIN 07/10/2018 07/24/2018 Inactive prednisone 20 mg tablet RxNorm: 536948 1 Tablet(s) PO BID 07/10/2018 07/14/2018 Inactive Phenergan with Codeine Syrup RxNorm: 5-10 Milliliter(s) PO Q6 PRN 06/28/2018 No Stop Date Active prednisone 20 mg tablet RxNorm: 181208 2 Tablet(s) PO daily 05/31/2018 06/04/2018 Inactive prednisone 20 mg tablet RxNorm: 588385 2 Tablet(s) PO daily 05/31/2018 05/30/2018 Inactive ceftriaxone 500 mg solution for injection RxNorm: 5628820 Inj 05/28/2018 05/28/2018 Inactive doxycycline hyclate 100 mg tablet RxNorm: 9606547 1 Tablet(s) PO BID 05/28/2018 06/06/2018 Inactive Kenalog 40 mg/mL suspension for injection RxNorm: 4150096 Milliliter(s) Inj 05/28/2018 05/28/2018 Inactive hydrocodone 10 mg-acetaminophen 325 mg tablet RxNorm: 478001 Tablet(s) PO TAKE ONE TO TWO TABLETS BY MOUTH EVERY 6 HOURS NEEDED FOR PAIN 05/09/2018 05/23/2018 Inactive alprazolam 0.25 mg tablet RxNorm: 706559 1 Tablet(s) PO daily as needed 04/25/2018 07/15/2018 Inactive Bystolic 10 mg tablet RxNorm: 436222 TAKE ONE TABLET BY MOUTH DAILY 04/16/2018 09/12/2018 Inactive hydrocodone 10 mg-acetaminophen 325 mg tablet RxNorm: 183089 Tablet(s) PO TAKE ONE TO TWO TABLETS BY MOUTH EVERY 6 HOURS NEEDED FOR PAIN 03/06/2018 03/20/2018 Inactive trazodone 50 mg tablet RxNorm: 323441 TAKE ONE AND ONE-HALF (1 1/2) TABLET BY MOUTH AT BEDTIME. MAY INCREASE TO 2 TABLETS AT BEDTIME NEEDED 02/23/2018 06/12/2018 Inactive mupirocin 2 % topical ointment RxNorm: 892959 1 TOP BID 02/09/2018 05/27/2018 Inactive Zofran 4 mg tablet RxNorm: 142492 1 Tablet(s) PO TID as needed 02/08/2018 No Stop Date Active Keflex 500 mg capsule RxNorm: 778502 1 Capsule(s) PO TID 02/07/2018 02/13/2018 Inactive alprazolam 0.25 mg tablet RxNorm: 217227 1 Tablet(s) PO daily as needed 01/24/2018 07/09/2018 Inactive hydrocodone 10 mg-acetaminophen 325 mg tablet RxNorm: 227154 Tablet(s) PO TAKE ONE TO TWO TABLETS BY MOUTH EVERY 6 HOURS NEEDED FOR PAIN 01/19/2018 02/02/2018 Inactive hydrochlorothiazide 25 mg tablet RxNorm: 416576 Tablet(s) TAKE ONE TABLET BY MOUTH DAILY 01/19/2018 01/19/2018 Inactive Kenalog 40 mg/mL suspension for injection RxNorm: 9526524 1 Milliliter(s) Inj 01/19/2018 01/19/2018 Inactive piroxicam 20 mg capsule RxNorm: 801568 1 Capsule(s) PO daily 01/19/2018 07/17/2018 Inactive D/C ORDER FOR HCTZ ceftriaxone 500 mg solution for injection RxNorm: 2658915 500 Milligram(s) Inj 01/19/2018 01/19/2018 Inactive Nexium 40 mg capsule,delayed release RxNorm: 323006 TAKE ONE CAPSULE BY MOUTH TWICE A DAY 01/18/2018 04/17/2018 Inactive Nexium 40 mg capsule,delayed release RxNorm: 507162 TAKE ONE CAPSULE BY MOUTH TWICE A DAY 01/15/2018 04/14/2018 Inactive ciprofloxacin 0.3 % eye drops RxNorm: 668810 2 Drop(s) ophthalmic (eye) Q2H while awake x 2 days, then Q4H x 5 days 11/23/2017 05/27/2018 Inactive Keflex 500 mg capsule RxNorm: 692698 1 Capsule(s) PO TID 11/23/2017 11/29/2017 Inactive hydrocodone 10 mg-acetaminophen 325 mg tablet RxNorm: 644039 Tablet(s) PO TAKE ONE TO TWO TABLETS BY MOUTH EVERY 6 HOURS NEEDED FOR PAIN 10/30/2017 11/13/2017 Inactive Augmentin 500 mg-125 mg tablet RxNorm: 099794 1 Tablet(s) PO TID 10/27/2017 11/05/2017 Inactive alprazolam 0.25 mg tablet RxNorm: 761829 1 Tablet(s) PO daily as needed 10/26/2017 04/24/2018 Inactive trazodone 50 mg tablet RxNorm: 274455 TAKE ONE AND ONE-HALF (1 1/2) TABLET BY MOUTH AT BEDTIME. MAY INCREASE TO 2 TABLETS AT BEDTIME NEEDED 09/25/2017 02/03/2018 Inactive Lexapro 20 mg tablet RxNorm: 318485 TAKE ONE AND ONE-HALF TABLET BY MOUTH DAILY 09/15/2017 09/09/2018 Inactive Flagyl 500 mg tablet RxNorm: 304880 1 Tablet(s) PO TID 09/12/2017 09/21/2017 Inactive promethazine 25 mg tablet RxNorm: 841450 1 Tablet(s) PO TID as needed nausea and vomitting THIS WILL MAKE YOU SLEEPY 09/12/2017 11/08/2017 Inactive Keflex 500 mg capsule RxNorm: 287203 1 Capsule(s) PO QID 08/25/2017 08/31/2017 Inactive [SAVINGS FOR UNINSURED PATIENTS -- [id number], PCN: [id number], Group: [id number], ID# [id number], Process claim through [employer], for questions: . THIS IS NOT INSURANCE.] alprazolam 0.25 mg tablet RxNorm: 118849 1 Tablet(s) PO daily as needed 07/31/2017 04/24/2018 Inactive prednisone 20 mg tablet RxNorm: 891824 2 Tablet(s) PO daily 07/25/2017 07/29/2017 Inactive Augmentin 500 mg-125 mg tablet RxNorm: 147675 1 Tablet(s) PO TID 07/25/2017 08/03/2017 Inactive trazodone 50 mg tablet RxNorm: 189253 TAKE ONE AND ONE-HALF (1 1/2) TABLET BY MOUTH AT BEDTIME. MAY INCREASE TO 2 TABLETS AT BEDTIME NEEDED 06/30/2017 09/03/2017 Inactive Bystolic 10 mg tablet RxNorm: 668503 TAKE ONE TABLET BY MOUTH DAILY 06/30/2017 2017 Inactive hydrochlorothiazide 25 mg tablet RxNorm: 145651 TAKE ONE TABLET BY MOUTH DAILY 06/30/2017 01/18/2018 Inactive Flagyl 500 mg tablet RxNorm: 284314 1 Tablet(s) PO TID 06/27/2017 07/03/2017 Inactive Phenergan with Codeine Syrup RxNorm: 5-10 Milliliter(s) PO Q6 PRN 06/27/2017 11/15/2017 Inactive Levaquin 500 mg tablet RxNorm: 737007 1 Tablet(s) PO daily 06/27/2017 07/03/2017 Inactive Kenalog 40 mg/mL suspension for injection RxNorm: 9021951 1 Milliliter(s) Inj 06/27/2017 06/27/2017 Inactive Nexium 40 mg capsule,delayed release RxNorm: 118233 1 Capsule(s) PO BID TAKE ONE CAPSULE BY MOUTH BID 05/22/2017 09/18/2017 Inactive Nexium 40 mg capsule,delayed release RxNorm: 181381 1 Capsule(s) PO BID TAKE ONE CAPSULE BY MOUTH BID 05/22/2017 05/21/2017 Inactive hydrocodone 10 mg-acetaminophen 325 mg tablet RxNorm: 854033 Tablet(s) PO TAKE ONE TO TWO TABLETS BY MOUTH EVERY 6 HOURS NEEDED FOR PAIN 05/17/2017 06/15/2017 Inactive Nexium 40 mg capsule,delayed release RxNorm: 430298 Capsule(s) TAKE ONE CAPSULE BY MOUTH BID 05/17/2017 05/21/2017 Inactive alprazolam 0.25 mg tablet RxNorm: 712585 1 Tablet(s) PO daily as needed 05/03/2017 07/01/2017 Inactive Levaquin 500 mg tablet RxNorm: 303258 1 Tablet(s) PO daily 04/20/2017 04/26/2017 Inactive clotrimazole 1 % topical cream RxNorm: 820491 1 Application TOP BID 04/20/2017 11/07/2017 Inactive Kenalog 40 mg/mL suspension for injection RxNorm: 3813233 Milliliter(s) Inj 04/20/2017 04/20/2017 Inactive nystatin 100,000 unit/gram topical powder RxNorm: 329402 1 Gram(s) APPLY TOPICALLY TWO TIMES A DAY 04/10/2017 07/08/2017 Inactive trazodone 50 mg tablet RxNorm: 772817 TAKE ONE AND ONE-HALF (1 1/2) TABLET BY MOUTH AT BEDTIME. MAY INCREASE TO 2 TABLETS AT BEDTIME NEEDED 03/28/2017 06/23/2017 Inactive Augmentin 875 mg-125 mg tablet RxNorm: 578779 1 Tablet(s) PO BID 03/14/2017 03/20/2017 Inactive Kenalog 40 mg/mL suspension for injection RxNorm: 8015047 1 Milliliter(s) Inj 03/14/2017 03/14/2017 Inactive Lexapro 20 mg tablet RxNorm: 018073 1.5 Tablet(s) PO daily 03/08/2017 03/07/2017 Inactive Lexapro 20 mg tablet RxNorm: 533629 1.5 Tablet(s) PO daily 03/08/2017 07/05/2017 Inactive alprazolam 0.25 mg tablet RxNorm: 331903 1 Tablet(s) PO daily as needed 02/23/2017 04/23/2017 Inactive (Response to an electronic controlled substance refill request - RxReferenceNumber: [id number]) Flagyl 500 mg tablet RxNorm: 644104 1 Tablet(s) PO TID 02/20/2017 03/01/2017 Inactive promethazine 25 mg tablet RxNorm: 681931 1 Tablet(s) PO TID as needed nausea 02/20/2017 03/01/2017 Inactive Cipro 500 mg tablet RxNorm: 087691 1 Tablet(s) PO BID 02/20/2017 03/01/2017 Inactive Flagyl 500 mg tablet RxNorm: 331718 1 Tablet(s) PO TID 02/09/2017 02/15/2017 Inactive Trintellix 10 mg tablet RxNorm: 5396286 1 Tablet(s) PO QAM 02/06/2017 03/07/2017 Inactive Efudex 5 % topical cream RxNorm: 664608 1 Application TOP BID use on skin spot on nose 02/06/2017 02/15/2017 Inactive Bystolic 10 mg tablet RxNorm: 751100 TAKE ONE TABLET BY MOUTH DAILY 02/03/2017 06/02/2017 Inactive Imitrex 50 mg tablet RxNorm: 523963 TAKE ONE TABLET BY MOUTH EVERY 8 HOURS NEEDED MAY REPEAT IN 1 HOUR OF INITIAL DOSE. DISCONTINUE FIORICET 12/22/2016 02/19/2017 Inactive Nexium 40 mg capsule,delayed release RxNorm: 903060 TAKE ONE CAPSULE BY MOUTH EVERY DAY 12/21/2016 05/16/2017 Inactive Lexapro 20 mg tablet RxNorm: 667235 Tablet(s) TAKE ONE TABLET BY MOUTH DAILY 12/05/2016 02/05/2017 Inactive Augmentin 875 mg-125 mg tablet RxNorm: 805997 1 Tablet(s) PO BID 11/28/2016 12/04/2016 Inactive ceftriaxone 500 mg solution for injection RxNorm: 6167547 1 Milliliter(s) Inj 11/28/2016 11/28/2016 Inactive hydrocodone 10 mg-acetaminophen 325 mg tablet RxNorm: 099365 Tablet(s) PO TAKE ONE TO TWO TABLETS BY MOUTH EVERY 6 HOURS NEEDED FOR PAIN 11/28/2016 05/16/2017 Inactive (Appended: Controlled substance eRx refill - RxReferenceNumber: [id number]) prednisone 20 mg tablet RxNorm: 998002 2 Tablet(s) PO daily 11/28/2016 12/02/2016 Inactive trazodone 50 mg tablet RxNorm: 010688 Tablet(s) TAKE 1 AND 1/2 TABLETS EVERY NIGHT AT BEDTIME , MAY INCREASE TO 2 TABLETS AT BEDTIME NEEDED 11/21/2016 11/20/2016 Inactive Synthroid 100 mcg tablet RxNorm: 863419 1 Tablet(s) PO daily 11/21/2016 05/19/2017 Inactive Brand name only! trazodone 50 mg tablet RxNorm: 777742 TAKE 1 AND 1/2 TABLETS EVERY NIGHT AT BEDTIME , MAY INCREASE TO 2 TABLETS AT BEDTIME NEEDED 11/21/2016 08/01/2018 Inactive Synthroid 100 mcg tablet RxNorm: 496119 1 Tablet(s) PO daily TAKE ONE TABLET BY MOUTH DAILY 11/08/2016 11/20/2016 Inactive ceftriaxone 500 mg solution for injection RxNorm: 3383508 Inj 11/07/2016 11/07/2016 Inactive Kenalog 40 mg/mL suspension for injection RxNorm: 1187038 Milliliter(s) Inj 11/07/2016 11/07/2016 Inactive Xanax 0.25 mg tablet RxNorm: 278026 1 Tablet(s) PO daily as needed 10/31/2016 05/02/2017 Inactive alprazolam 0.25 mg tablet RxNorm: 206131 1 Tablet(s) PO daily as needed 10/21/2016 12/18/2016 Inactive (Response to an electronic controlled substance refill request - RxReferenceNumber: [id number]) hydrochlorothiazide 25 mg tablet RxNorm: 742680 TAKE ONE TABLET BY MOUTH DAILY 10/11/2016 04/08/2017 Inactive Xanax 0.25 mg tablet RxNorm: 974401 1 Tablet(s) PO daily as needed 08/23/2016 10/19/2016 Inactive Flonase Allergy Relief 50 mcg/actuation nasal spray,suspension RxNorm: 3688744 1 [place] NASAL daily 08/15/2016 No Stop Date Active amoxicillin 500 mg capsule RxNorm: 278869 1 Capsule(s) PO TID 08/15/2016 08/24/2016 Inactive Bystolic 10 mg tablet RxNorm: 064222 TAKE ONE TABLET BY MOUTH DAILY 08/01/2016 12/28/2016 Inactive trazodone 50 mg tablet RxNorm: 168153 TAKE 1 AND 1/2 TABLETS EVERY NIGHT AT BEDTIME , MAY INCREASE TO 2 TABLETS AT BEDTIME NEEDED 07/25/2016 11/11/2016 Inactive alprazolam 0.25 mg tablet RxNorm: 077789 1 Tablet(s) PO daily as needed 07/25/2016 08/22/2016 Inactive (Response to an electronic controlled substance refill request - RxReferenceNumber: [id number]) Imitrex 50 mg tablet RxNorm: 342330 1 Tablet(s) PO Q8 as needed may repeat x1 dose in 1 hour of inital dose. 07/13/2016 No Stop Date Active Lexapro 20 mg tablet RxNorm: 820709 TAKE 1/2 TABLET BY MOUTH DAILY FOR 10 DAYS, THEN TAKE ONE TABLET BY MOUTH DAILY 06/27/2016 11/23/2016 Inactive Synthroid 100 mcg tablet RxNorm: 102854 TAKE ONE TABLET BY MOUTH DAILY 06/20/2016 11/07/2016 Inactive Augmentin 500 mg-125 mg tablet RxNorm: 656082 1 Tablet(s) PO TID 06/07/2016 06/13/2016 Inactive hydrocodone 10 mg-acetaminophen 325 mg tablet RxNorm: 870216 Tablet(s) PO TAKE ONE TO TWO TABLETS BY MOUTH EVERY 6 HOURS NEEDED FOR PAIN 06/07/2016 11/27/2016 Inactive (Appended: Controlled substance eRx refill - RxReferenceNumber: [id number]) hydrochlorothiazide 25 mg tablet RxNorm: 430014 TAKE ONE TABLET BY MOUTH DAILY 03/14/2016 09/09/2016 Inactive Edarbi 40 mg tablet RxNorm: 8176490 1 Tablet(s) PO daily 03/14/2016 06/06/2016 Inactive trazodone 50 mg tablet RxNorm: 858219 Tablet(s) TAKE 1 AND 1/2 TABLET AT BEDTIME. MAY INCREASE TO 2 TABLETS IF NECESSARY 02/25/2016 07/05/2016 Inactive Imitrex 50 mg tablet RxNorm: 924986 1 Tablet(s) PO Q8 as needed may repeat x1 dose in 1 hour of inital dose. 02/25/2016 07/12/2016 Inactive dc fioricet Xanax 0.25 mg tablet RxNorm: 115605 1 Tablet(s) PO daily as needed 02/24/2016 07/21/2016 Inactive mupirocin 2 % topical ointment RxNorm: 054659 1 TOP BID 02/22/2016 11/08/2017 Inactive Bactrim DS 800 mg-160 mg tablet RxNorm: 546758 1 Tablet(s) PO BID 02/22/2016 03/02/2016 Inactive Fioricet 50 mg-325 mg-40 mg tablet RxNorm: 705386 Tablet(s) TAKE ONE TABLET BY MOUTH EVERY 4 HOURS NEEDED FOR headache 02/12/2016 02/24/2016 Inactive (Response to an electronic controlled substance refill request - RxReferenceNumber: [id number]) Fioricet 50 mg-325 mg-40 mg tablet RxNorm: 790413 Tablet(s) TAKE ONE TABLET BY MOUTH EVERY 4 HOURS NEEDED FOR headache 02/12/2016 02/11/2016 Inactive (Response to an electronic controlled substance refill request - RxReferenceNumber: [id number]) Nexium 40 mg capsule,delayed release RxNorm: 506856 TAKE ONE CAPSULE BY MOUTH EVERY DAY 02/01/2016 10/27/2016 Inactive Bystolic 10 mg tablet RxNorm: 305764 Tablet(s) TAKE ONE TABLET BY MOUTH DAILY 01/06/2016 07/03/2016 Inactive Xanax 0.25 mg tablet RxNorm: 414609 1 Tablet(s) PO daily as needed 12/28/2015 02/23/2016 Inactive Levaquin 500 mg tablet RxNorm: 431673 1 Tablet(s) PO daily take a probiotic daily 12/14/2015 02/11/2016 Inactive Levaquin 500 mg tablet RxNorm: 343899 1 Tablet(s) PO daily take a probiotic daily 12/14/2015 12/13/2015 Inactive prednisone 20 mg tablet RxNorm: 573184 1 Tablet(s) PO BID 12/07/2015 12/13/2015 Inactive Augmentin 875 mg-125 mg tablet RxNorm: 201040 1 Tablet(s) PO BID 12/07/2015 12/13/2015 Inactive ceftriaxone 500 mg solution for injection RxNorm: 8062434 Inj 12/07/2015 12/07/2015 Inactive Phenergan with Codeine Syrup RxNorm: 5-10 Milliliter(s) PO Q6 PRN 12/07/2015 06/26/2017 Inactive alprazolam 0.25 mg tablet RxNorm: 568561 1 Tablet(s) PO daily as needed 11/27/2015 12/25/2015 Inactive (Response to an electronic controlled substance refill request - RxReferenceNumber: [id number]) trazodone 50 mg tablet RxNorm: 739596 TAKE 1 AND 1/2 TABLET AT BEDTIME FOR 2 WEEKS, MAY INCREASE TO 2 TABLETS IF NECESSARY AFTER THAT 11/26/2015 02/24/2016 Inactive ceftriaxone 500 mg solution for injection RxNorm: 3771402 Milliliter(s) Inj 11/24/2015 11/24/2015 Inactive prednisone 10 mg tablet RxNorm: 908210 3 Tablet(s) PO daily 11/24/2015 11/28/2015 Inactive cefdinir 300 mg capsule RxNorm: 481545 1 Capsule(s) PO BID 11/24/2015 11/30/2015 Inactive Kenalog 40 mg/mL suspension for injection RxNorm: 7804732 1 Milliliter(s) Inj 11/24/2015 11/24/2015 Inactive Lexapro 20 mg tablet RxNorm: 976611 TAKE 1/2 TABLET BY MOUTH DAILY FOR 10 DAYS, THEN TAKE ONE TABLET BY MOUTH DAILY 11/23/2015 05/20/2016 Inactive Lipitor 10 mg tablet RxNorm: 125099 Tablet(s) TAKE ONE TABLET BY MOUTH EVERY DAY 10/26/2015 11/06/2016 Inactive Norvasc 10 mg tablet RxNorm: 965898 Tablet(s) PO TAKE ONE TABLET BY MOUTH EVERY DAY 10/26/2015 01/18/2018 Inactive hydrochlorothiazide 25 mg tablet RxNorm: 358668 TAKE ONE TABLET BY MOUTH DAILY 10/20/2015 01/17/2016 Inactive promethazine 25 mg/mL injection solution RxNorm: 834930 Milliliter(s) Inj 08/27/2015 08/27/2015 Inactive ketorolac 60 mg/2 mL intramuscular solution RxNorm: 762202 Milliliter(s) IM 08/27/2015 08/27/2015 Inactive alprazolam 0.25 mg tablet RxNorm: 285114 1 Tablet(s) PO daily as needed 08/27/2015 10/25/2017 Inactive (Response to an electronic controlled substance refill request - RxReferenceNumber: [id number]) Lexapro 20 mg tablet RxNorm: 024656 TAKE 1/2 TABLET BY MOUTH DAILY FOR 10 DAYS, THEN TAKE ONE TABLET BY MOUTH DAILY 08/13/2015 11/10/2015 Inactive Flonase 50 mcg/actuation nasal spray,suspension RxNorm: 739486 PLACE 1 SPRAY IN EACH NOSTRIL DAILY 08/13/2015 02/08/2016 Inactive Augmentin 500 mg-125 mg tablet RxNorm: 904143 1 Tablet(s) PO TID 08/10/2015 08/16/2015 Inactive Kenalog 40 mg/mL suspension for injection RxNorm: 9215736 Milliliter(s) Inj 08/10/2015 08/10/2015 Inactive ceftriaxone 500 mg solution for injection RxNorm: 3819248 Inj 08/10/2015 08/10/2015 Inactive nystatin 100,000 unit/mL oral suspension RxNorm: 082746 4 Milliliter(s) PO QID 08/10/2015 08/16/2015 Inactive trazodone 50 mg tablet RxNorm: 298848 TAKE 1 AND 1/2 TABLET AT BEDTIME FOR 2 WEEKS, MAY INCREASE TO 2 TABLETS IF NECESSARY AFTER THAT 07/31/2015 11/25/2015 Inactive ceftriaxone 500 mg solution for injection RxNorm: 8563784 1 Milliliter(s) Inj 07/28/2015 07/28/2015 Inactive Bactrim DS 800 mg-160 mg tablet RxNorm: 529231 1 Tablet(s) PO BID 07/28/2015 08/06/2015 Inactive Bactroban 2 % topical ointment RxNorm: 258425 1 Application TOP BID 07/28/2015 08/06/2015 Inactive Diflucan 150 mg tablet RxNorm: 604383 1 Tablet(s) PO daily 06/11/2015 06/17/2015 Inactive clotrimazole 1 % topical cream RxNorm: 570345 1 Application TOP BID 06/11/2015 07/10/2015 Inactive Bystolic 10 mg tablet RxNorm: 984424 TAKE ONE TABLET BY MOUTH DAILY 06/08/2015 12/04/2015 Inactive alprazolam 0.25 mg tablet RxNorm: 880292 1 Tablet(s) PO daily as needed 06/01/2015 08/25/2015 Inactive (Response to an electronic controlled substance refill request - RxReferenceNumber: [id number]) Fioricet 50 mg-325 mg-40 mg tablet RxNorm: 583168 Tablet(s) TAKE ONE TABLET BY MOUTH EVERY 4 HOURS NEEDED FOR headache 05/28/2015 06/08/2015 Inactive (Response to an electronic controlled substance refill request - RxReferenceNumber: [id number]) trazodone 50 mg tablet RxNorm: 256667 TAKE 1 AND 1/2 TABLET AT BEDTIME FOR 2 WEEKS, MAY INCREASE TO 2 TABLETS IF NECESSARY AFTER THAT 05/25/2015 08/22/2015 Inactive trazodone 50 mg tablet RxNorm: 593894 TAKE 1 AND 1/2 TABLET AT BEDTIME FOR 2 WEEKS, MAY INCREASE TO 2 TABLETS IF NECESSARY AFTER THAT 05/25/2015 05/24/2015 Inactive Synthroid 100 mcg tablet RxNorm: 374424 TAKE ONE TABLET BY MOUTH DAILY 04/23/2015 01/17/2016 Inactive Lipitor 10 mg tablet RxNorm: 309966 TAKE ONE TABLET BY MOUTH EVERY DAY 04/23/2015 10/25/2015 Inactive Kenalog 40 mg/mL suspension for injection RxNorm: 7730514 Milliliter(s) Inj 03/19/2015 03/19/2015 Inactive Lexapro 20 mg tablet RxNorm: 471684 1 Tablet(s) PO daily 03/19/2015 07/16/2015 Inactive 1/2 tab daily x 10 days then 1 tab daily hydrocodone 10 mg-acetaminophen 325 mg tablet RxNorm: 091106 Tablet(s) PO TAKE ONE TO TWO TABLETS BY MOUTH EVERY 6 HOURS NEEDED FOR PAIN 03/19/2015 06/06/2016 Inactive (Appended: Controlled substance eRx refill - RxReferenceNumber: [id number]) Carafate 1 gram tablet RxNorm: 475818 1 Tablet(s) PO AC & HS 03/19/2015 06/16/2015 Inactive dissolve in water and take as a slurry hydrochlorothiazide 25 mg tablet RxNorm: 474932 1 Tablet(s) PO daily 03/12/2015 09/07/2015 Inactive Nexium 40 mg capsule,delayed release RxNorm: 610536 TAKE ONE CAPSULE BY MOUTH EVERY DAY 02/26/2015 12/22/2015 Inactive Cymbalta 60 mg capsule,delayed release RxNorm: 175812 TAKE ONE CAPSULE BY MOUTH TWICE A DAY 02/23/2015 03/18/2015 Inactive alprazolam 0.25 mg tablet RxNorm: 334348 1 Tablet(s) PO daily as needed 02/11/2015 05/10/2015 Inactive (Response to an electronic controlled substance refill request - RxReferenceNumber: [id number]) trazodone 50 mg tablet RxNorm: 751945 TAKE 1 AND 1/2 TABLET AT BEDTIME FOR 2 WEEKS, MAY INCREASE TO 2 TABLETS IF NECESSARY AFTER THAT 01/27/2015 05/24/2015 Inactive Augmentin 500 mg-125 mg tablet RxNorm: 490173 1 Tablet(s) PO TID 01/07/2015 01/13/2015 Inactive gentamicin 0.3 % eye drops RxNorm: 580499 3 Drop(s) OPH QID 01/07/2015 01/13/2015 Inactive [AttnRPh: Saving apply/adjudicate RxGRP:[id number] RxBIN:[id number] RxPCN: ID#:[id number]] scopolamine 1.5 mg transdermal 72 hour patch RxNorm: 276067 1 Patch TD q72 hours 01/07/2015 11/23/2015 Inactive Synthroid 100 mcg tablet RxNorm: 832105 TAKE ONE TABLET BY MOUTH ONCE A DAY 01/06/2015 04/22/2015 Inactive nystatin 100,000 unit/gram topical powder RxNorm: 101355 APPLY TOPICALLY TWO TIMES A DAY 12/18/2014 03/17/2015 Inactive alprazolam 0.25 mg tablet RxNorm: 150127 TAKE ONE TABLET BY MOUTH DAILY NEEDED 10/30/2014 11/28/2014 Inactive (Response to an electronic controlled substance refill request - RxReferenceNumber: [id number]) alprazolam 0.25 mg tablet RxNorm: 882695 Tablet(s) TAKE ONE TABLET BY MOUTH DAILY 10/30/2014 10/29/2014 Inactive (Response to an electronic controlled substance refill request - RxReferenceNumber: [id number]) Lipitor 10 mg tablet RxNorm: 491209 TAKE ONE TABLET BY MOUTH EVERY DAY 10/30/2014 02/26/2015 Inactive alprazolam 0.25 mg tablet RxNorm: 793699 TAKE ONE TABLET BY MOUTH DAILY 10/07/2014 10/29/2014 Inactive (Response to an electronic controlled substance refill request - RxReferenceNumber: [id number]) alprazolam 0.25 mg tablet RxNorm: 882317 TAKE ONE TABLET BY MOUTH DAILY 10/06/2014 10/07/2014 Inactive (Response to an electronic controlled substance refill request - RxReferenceNumber: [id number]) alprazolam 0.25 mg tablet RxNorm: 326582 Tablet(s) TAKE ONE TABLET BY MOUTH EVERY DAY NEEDED 09/30/2014 10/06/2014 Inactive (Response to an electronic controlled substance refill request - RxReferenceNumber: [id number]) Fioricet 50 mg-325 mg-40 mg tablet RxNorm: 127308 Tablet(s) TAKE ONE TABLET BY MOUTH EVERY 4 HOURS NEEDED FOR headache 09/29/2014 10/12/2014 Inactive (Response to an electronic controlled substance refill request - RxReferenceNumber: [id number]) Bystolic 10 mg tablet RxNorm: 026515 1 Tablet(s) PO daily TAKE ONE TABLET BY MOUTH EVERY DAY 09/29/2014 04/26/2015 Inactive Bystolic 5 mg tablet RxNorm: 560407 TAKE 1 AND 1/2 TABLETS ONCE DAILY 09/24/2014 09/23/2014 Inactive Bystolic 5 mg tablet RxNorm: 286116 Tablet(s) TAKE 1 AND 1/2 TABLETS ONCE DAILY 09/24/2014 09/18/2015 Inactive gentamicin 0.3 % eye drops RxNorm: 188294 3 Drop(s) OPH QID 09/23/2014 09/29/2014 Inactive trazodone 50 mg tablet RxNorm: 795793 TAKE 1 AND 1/2 TABLET AT BEDTIME FOR 2 WEEKS, MAY INCREASE TO 2 TABLETS IF NECESSARY AFTER THAT 09/22/2014 01/26/2015 Inactive Fioricet 50 mg-325 mg-40 mg tablet RxNorm: 894766 TAKE ONE TABLET BY MOUTH EVERY 4 HOURS NEEDED FOR PAIN 09/17/2014 09/28/2014 Inactive (Response to an electronic controlled substance refill request - RxReferenceNumber: [id number]) Duragesic 50 mcg/hr transdermal patch RxNorm: 769447 1 TD q72 hours 08/07/2014 01/06/2015 Inactive [SAVINGS FOR UNINSURED PATIENTS -- BIN:[id number], PCN: ASPROD1, Group: [id number], ID# [id number], Process claim through [employer], for questions: . THIS IS NOT INSURANCE.] alprazolam 0.25 mg tablet RxNorm: 517441 TAKE ONE TABLET BY MOUTH EVERY DAY NEEDED 07/31/2014 08/29/2014 Inactive (Response to an electronic controlled substance refill request - RxReferenceNumber: [id number]) alprazolam 0.25 mg tablet RxNorm: 246963 1 Tablet(s) PO daily as needed TAKE ONE TABLET BY MOUTH EVERY DAY NEEDED 07/30/2014 08/01/2014 Inactive (Response to an electronic controlled substance refill request - RxReferenceNumber: [id number]) Diflucan 150 mg tablet RxNorm: 100826 1 Tablet(s) PO daily 06/25/2014 07/01/2014 Inactive [SAVINGS FOR UNINSURED PATIENTS -- BIN:[id number], PCN: ASPROD1, Group: [id number], ID# [id number], Process claim through [employer], for questions: . THIS IS NOT INSURANCE.] Kenalog 40 mg/mL suspension for injection RxNorm: 4771215 Milliliter(s) Inj 06/23/2014 06/23/2014 Inactive [SAVINGS FOR UNINSURED PATIENTS -- BIN:385395, PCN: ASPROD1, Group: [id number], ID# [id number], Process claim through [employer], for questions: . THIS IS NOT INSURANCE.] ceftriaxone 500 mg solution for injection RxNorm: 138060 Inj 06/23/2014 06/23/2014 Inactive [SAVINGS FOR UNINSURED PATIENTS -- BIN:974151, PCN: ASPROD1, Group: [id number], ID# [id number], Process claim through [employer], for questions: . THIS IS NOT INSURANCE.] Levaquin 500 mg tablet RxNorm: 595896 1 Tablet(s) PO daily 06/23/2014 07/13/2014 Inactive [SAVINGS FOR UNINSURED PATIENTS -- BIN:403942, PCN: ASPROD1, Group: [id number], ID# [id number], Process claim through [employer], for questions: . THIS IS NOT INSURANCE.] Duragesic 50 mcg/hr transdermal patch RxNorm: 921043 1 TD q72 hours 06/05/2014 08/06/2014 Inactive [SAVINGS FOR UNINSURED PATIENTS -- BIN:848843, PCN: ASPROD1, Group: TAB, ID# [id number], Process claim through [employer], for questions: . THIS IS NOT INSURANCE.] alprazolam 0.25 mg tablet RxNorm: 648752 1 Tablet(s) PO daily as needed TAKE ONE TABLET BY MOUTH EVERY DAY NEEDED 06/02/2014 07/29/2014 Inactive (Response to an electronic controlled substance refill request - RxReferenceNumber: [id number]) nystatin 100,000 unit/gram topical powder RxNorm: 028171 APPLY TO AFFECTED AREA(S) TWO TIMES A DAY 05/01/2014 06/14/2014 Inactive hydrochlorothiazide 25 mg tablet RxNorm: 239816 TAKE ONE TABLET BY MOUTH EVERY DAY MUST CALL MD FOR APPOINTMENT 04/24/2014 10/20/2014 Inactive alprazolam 0.25 mg tablet RxNorm: 714846 Tablet(s) TAKE ONE TABLET BY MOUTH EVERY DAY NEEDED 04/16/2014 06/02/2014 Inactive (Response to an electronic controlled substance refill request - RxReferenceNumber: [id number]) alprazolam 0.25 mg tablet RxNorm: 197735 TAKE ONE TABLET BY MOUTH EVERY DAY NEEDED 04/16/2014 05/15/2014 Inactive (Response to an electronic controlled substance refill request - RxReferenceNumber: [id number]) alprazolam 0.25 mg tablet RxNorm: 199731 TAKE ONE TABLET BY MOUTH EVERY DAY NEEDED 04/16/2014 05/15/2014 Inactive (Response to an electronic controlled substance refill request - RxReferenceNumber: [id number]) alprazolam 0.25 mg tablet RxNorm: 590995 TAKE ONE TABLET BY MOUTH EVERY DAY NEEDED 04/14/2014 04/16/2014 Inactive (Response to an electronic controlled substance refill request - RxReferenceNumber: [id number]) Lipitor 10 mg tablet RxNorm: 846522 TAKE ONE TABLET BY MOUTH EVERY DAY 04/14/2014 09/10/2014 Inactive alprazolam 0.25 mg tablet RxNorm: 585685 TAKE ONE TABLET BY MOUTH EVERY DAY NEEDED 04/14/2014 04/14/2014 Inactive (Response to an electronic controlled substance refill request - RxReferenceNumber: [id number]) alprazolam 0.25 mg tablet RxNorm: 383147 TAKE ONE TABLET BY MOUTH EVERY DAY NEEDED 04/14/2014 04/15/2014 Inactive (Response to an electronic controlled substance refill request - RxReferenceNumber: [id number]) alprazolam 0.25 mg tablet RxNorm: 483151 TAKE ONE TABLET BY MOUTH EVERY DAY NEEDED 04/14/2014 04/14/2014 Inactive (Response to an electronic controlled substance refill request - RxReferenceNumber: [id number]) nystatin 100,000 unit/gram topical powder RxNorm: 192650 1 Application TOP BID 04/03/2014 07/01/2014 Inactive [SAVINGS FOR UNINSURED PATIENTS -- BIN:808646, PCN: ASPROD1, Group: [id number], ID# [id number], Process claim through [employer], for questions: . THIS IS NOT INSURANCE.] Keflex 500 mg capsule RxNorm: 643400 1 Capsule(s) PO QID 04/03/2014 04/09/2014 Inactive [SAVINGS FOR UNINSURED PATIENTS -- BIN:544597, PCN: ASPROD1, Group: [id number], ID# [id number], Process claim through [employer], for questions: . THIS IS NOT INSURANCE.] Synthroid 100 mcg tablet RxNorm: 114965 1 Tablet(s) PO daily TAKE ONE TABLET BY MOUTH EVERY DAY 04/01/2014 01/05/2015 Inactive [SAVINGS FOR UNINSURED PATIENTS -- BIN:430999, PCN: ASPROD1, Group: [id number], ID# [id number], Process claim through [employer], for questions: . THIS IS NOT INSURANCE.] Duragesic 50 mcg/hr transdermal patch RxNorm: 212387 1 TD q72 hours 03/24/2014 06/04/2014 Inactive [SAVINGS FOR UNINSURED PATIENTS -- BIN:177516, PCN: ASPROD1, Group: [id number], ID# [id number], Process claim through [employer], for questions: . THIS IS NOT INSURANCE.] trazodone 50 mg tablet RxNorm: 659744 TAKE 1 AND 1/2 TABLET AT BEDTIME FOR 2 WEEKS, MAY INCREASE TO 2 TABLETS IF NECESSARY AFTER THAT 03/18/2014 09/13/2014 Inactive nystatin 100,000 unit/gram topical powder RxNorm: 081421 1 Application TOP BID 03/07/2014 03/16/2014 Inactive [SAVINGS FOR UNINSURED PATIENTS -- BIN:297538, PCN: ASPROD1, Group: [id number], ID# [id number], Process claim through [employer], for questions: . THIS IS NOT INSURANCE.] permethrin 5 % topical cream RxNorm: 298211 1 Application TOP daily 03/07/2014 11/23/2015 Inactive apply head to toe-leave on overnight and wash off in the a.m. May repeat x 1 if needed Diflucan 150 mg tablet RxNorm: 754283 1 Tablet(s) PO daily 03/07/2014 03/09/2014 Inactive [SAVINGS FOR UNINSURED PATIENTS -- BIN:325383, PCN: ASPLEYDA1, Group: [id number], ID# [id number], Process claim through [employer], for questions: . THIS IS NOT INSURANCE.] hydrochlorothiazide 25 mg tablet RxNorm: 357707 TAKE ONE TABLET BY MOUTH EVERY DAY MUST CALL MD FOR APPOINTMENT 03/06/2014 04/23/2014 Inactive Zithromax Z-Sergio 250 mg tablet RxNorm: 938591 Tablet(s) PO as directed 03/04/2014 11/23/2015 Inactive [SAVINGS FOR UNINSURED PATIENTS -- BIN:337900, PCN: ASPROD1, Group: [id number], ID# [id number], Process claim through [employer], for questions: . THIS IS NOT INSURANCE.] Flonase 50 mcg/actuation nasal spray,suspension RxNorm: 424882 1 [place] NASAL daily 03/04/2014 07/01/2014 Inactive [SAVINGS FOR UNINSURED PATIENTS -- BIN:176751, PCN: ASPROD1, Group: [id number], ID# [id number], Process claim through [employer], for questions: . THIS IS NOT INSURANCE.] alprazolam 0.25 mg tablet RxNorm: 701670 1 Tablet(s) PO PRN TAKE ONE TABLET BY MOUTH EVERY DAY NEEDED 02/25/2014 04/14/2014 Inactive (Appended: Controlled substance eRx refill - RxReferenceNumber: [id number]) alprazolam 0.25 mg tablet RxNorm: 513465 TAKE ONE TABLET BY MOUTH EVERY DAY NEEDED 02/21/2014 03/22/2014 Inactive (Response to an electronic controlled substance refill request - RxReferenceNumber: [id number]) alprazolam 0.25 mg tablet RxNorm: 306088 TAKE ONE TABLET BY MOUTH EVERY DAY NEEDED 02/21/2014 03/22/2014 Inactive (Response to an electronic controlled substance refill request - RxReferenceNumber: [id number]) alprazolam 0.25 mg tablet RxNorm: 716705 TAKE ONE TABLET BY MOUTH EVERY DAY NEEDED 02/18/2014 03/19/2014 Inactive (Response to an electronic controlled substance refill request - RxReferenceNumber: [id number]) Cymbalta 60 mg capsule,delayed release RxNorm: 465710 TAKE ONE CAPSULE BY MOUTH TWICE A DAY 02/18/2014 01/13/2015 Inactive Nexium 40 mg capsule,delayed release RxNorm: 603146 TAKE ONE CAPSULE BY MOUTH EVERY DAY 02/18/2014 01/13/2015 Inactive Bactrim DS 800 mg-160 mg tablet RxNorm: 783764 1 Tablet(s) PO BID 02/13/2014 02/19/2014 Inactive probiotic while one antibiotic Bactrim DS 800 mg-160 mg tablet RxNorm: 568519 1 Tablet(s) PO BID 02/13/2014 02/12/2014 Inactive hydrocodone 10 mg-acetaminophen 325 mg tablet RxNorm: 437603 Tablet(s) PO TAKE ONE TO TWO TABLETS BY MOUTH EVERY 6 HOURS NEEDED FOR PAIN 02/06/2014 03/18/2015 Inactive (Appended: Controlled substance eRx refill - RxReferenceNumber: [id number]) Abilify 2 mg tablet RxNorm: 615842 Tablet(s) PO TAKE ONE TABLET BY MOUTH EVERY NIGHT AT BEDTIME 02/03/2014 03/19/2015 Inactive Duragesic 50 mcg/hr transdermal patch RxNorm: 327537 1 TD q72 hours 01/14/2014 03/23/2014 Inactive alprazolam 0.25 mg tablet RxNorm: 494025 1 Tablet(s) PO QDAY PRN 01/14/2014 02/12/2014 Inactive alprazolam 0.25 mg tablet RxNorm: 058686 Tablet(s) PO TAKE ONE TABLET BY MOUTH EVERY DAY NEEDED 01/14/2014 02/24/2014 Inactive (Appended: Controlled substance eRx refill - RxReferenceNumber: [id number]) Lipitor 10 mg tablet RxNorm: 058517 Tablet(s) PO TAKE ONE TABLET BY MOUTH EVERY DAY 01/14/2014 04/13/2014 Inactive Synthroid 100 mcg tablet RxNorm: 871168 Tablet(s) PO TAKE ONE TABLET BY MOUTH EVERY DAY 2013 03/31/2014 Inactive Fioricet 50 mg-325 mg-40 mg tablet RxNorm: 966273 Tablet(s) PO TAKE ONE TABLET BY MOUTH EVERY 4 HOURS NEEDED FOR PAIN 11/27/2013 09/17/2014 Inactive Fioricet 50 mg-325 mg-40 mg tablet RxNorm: 831534 Tablet(s) PO TAKE ONE TABLET BY MOUTH EVERY 4 HOURS NEEDED FOR PAIN 11/25/2013 11/26/2013 Inactive Zithromax Z-Sergio 250 mg tablet RxNorm: 798525 Tablet(s) PO as directed 11/11/2013 01/13/2014 Inactive Bystolic 10 mg tablet RxNorm: 593165 Tablet(s) PO TAKE ONE TABLET BY MOUTH EVERY DAY 10/21/2013 09/28/2014 Inactive Abilify 2 mg tablet RxNorm: 450519 1 Tablet(s) PO QHS 09/25/2013 01/22/2014 Inactive Synthroid 100 mcg tablet RxNorm: 331420 Tablet(s) PO TAKE ONE TABLET BY MOUTH EVERY DAY 09/24/2013 12/25/2013 Inactive Abilify 2 mg tablet RxNorm: 960768 1 Tablet(s) PO QHS 09/24/2013 09/24/2013 Inactive Rocephin 500 mg solution for injection RxNorm: 954690 1ml Milliliter(s) Inj 09/24/2013 09/24/2013 Inactive Rocephin 500 mg solution for injection RxNorm: 924792 1 Milliliter(s) Inj 09/19/2013 09/19/2013 Inactive Bystolic 5 mg tablet RxNorm: 756156 1 1/2 Tablet(s) PO daily 09/17/2013 03/15/2014 Inactive 1 1/2 daily may have 90 day if cheaper Bystolic 5 mg tablet RxNorm: 237285 1 1/2 Tablet(s) PO daily 09/17/2013 09/16/2013 Inactive 1 1/2 daily Lipitor 10 mg tablet RxNorm: 495774 Tablet(s) PO TAKE ONE TABLET BY MOUTH EVERY DAY 09/12/2013 01/13/2014 Inactive hydrocodone 10 mg-acetaminophen 325 mg tablet RxNorm: 140915 Tablet(s) PO TAKE ONE TO TWO TABLETS BY MOUTH EVERY 6 HOURS NEEDED FOR PAIN 09/09/2013 10/29/2017 Inactive (Appended: Controlled substance eRx refill - RxReferenceNumber: [id number]) hydrocodone 10 mg-acetaminophen 325 mg tablet RxNorm: 900665 1 Tablet(s) PO Q6 PRN 09/09/2013 02/06/2014 Inactive hydrocodone 10 mg-acetaminophen 325 mg tablet RxNorm: 196343 Tablet(s) PO TAKE ONE TO TWO TABLETS BY MOUTH EVERY 6 HOURS NEEDED FOR PAIN 09/06/2013 10/29/2017 Inactive (Appended: Controlled substance eRx refill - RxReferenceNumber: [id number]) Norvasc 10 mg tablet RxNorm: 774367 Tablet(s) PO TAKE ONE TABLET BY MOUTH EVERY DAY 09/05/2013 10/25/2015 Inactive trazodone 50 mg tablet RxNorm: 603530 1 1/2 Tablet(s) PO QHS 09/03/2013 03/17/2014 Inactive 75q hs x 2 week may increase to 100mg if nec after that nystatin 100,000 unit/mL oral suspension RxNorm: 638248 6 Milliliter(s) PO QID 08/06/2013 08/15/2013 Inactive Flonase 50 mcg/actuation nasal spray,suspension RxNorm: 800745 2 [place] NASAL daily 08/06/2013 03/03/2014 Inactive nystatin 100,000 unit/mL oral suspension RxNorm: 470513 6 Unit(s) PO QID 08/05/2013 08/05/2013 Inactive Phenergan with Codeine Syrup RxNorm: 5 Milliliter(s) PO Q4 PRN 08/05/2013 12/02/2013 Inactive 8 ounces alprazolam 0.25 mg tablet RxNorm: 424090 1 Tablet(s) PO QDAY PRN 07/29/2013 01/14/2014 Inactive Diflucan 150 mg tablet RxNorm: 912987 1 Tablet(s) PO daily 07/24/2013 07/26/2013 Inactive hydrochlorothiazide 25 mg tablet RxNorm: 947478 Tablet(s) PO TAKE ONE TABLET BY MOUTH EVERY DAY MUST CALL MD FOR APPOINTMENT 07/19/2013 03/05/2014 Inactive Phenergan with Codeine Syrup RxNorm: 10 Milliliter(s) PO Q4 PRN 07/10/2013 08/04/2013 Inactive 8 ounces Rocephin 500 mg solution for injection RxNorm: 0188324 1 Inj 07/10/2013 07/10/2013 Inactive cefdinir 300 mg capsule RxNorm: 395559 1 Capsule(s) PO BID 07/10/2013 07/16/2013 Inactive prednisone 10 mg tablet RxNorm: 296779 3 Tablet(s) PO daily 07/10/2013 07/14/2013 Inactive Carafate 100 mg/mL oral suspension RxNorm: 167795 10 Milliliter(s) PO Q6 PRN pt to take carafate 10mL every 6 hours as needed. 07/10/2013 08/05/2014 Inactive Kenalog 40 mg/mL suspension for injection RxNorm: 4320016 1 Milliliter(s) Inj 07/10/2013 07/10/2013 Inactive trazodone 50 mg tablet RxNorm: 270831 1 Tablet(s) PO QHS 07/10/2013 09/02/2013 Inactive sulfamethoxazole 800 mg-trimethoprim 160 mg tablet RxNorm: 384643 1 Tablet(s) PO BID 06/03/2013 06/12/2013 Inactive Synthroid 125 mcg tablet RxNorm: 267012 1 Tablet(s) PO daily 05/07/2013 09/23/2013 Inactive Bystolic 10 mg tablet RxNorm: 539200 1.5 Tablet(s) PO daily 05/07/2013 09/03/2013 Inactive Voltaren 1 % Topical Gel RxNorm: 447435 4 Gram(s) TOP QID apply 4 grams to knees, 2 grams to hands and ankles four times daily. 05/07/2013 09/03/2013 Inactive hydrocodone 10 mg-acetaminophen 325 mg tablet RxNorm: 954534 1 Tablet(s) PO Q6 PRN 04/23/2013 09/09/2013 Inactive Norvasc 10 mg tablet RxNorm: 556028 Tablet(s) PO TAKE ONE TABLET BY MOUTH EVERY DAY 04/23/2013 09/04/2013 Inactive alprazolam 0.25 mg tablet RxNorm: 229965 1 Tablet(s) PO QDAY PRN 03/25/2013 07/22/2013 Inactive Bystolic 10 mg tablet RxNorm: 553851 1 Tablet(s) PO daily TAKE ONE TABLET BY MOUTH EVERY DAY 03/25/2013 05/06/2013 Inactive zolpidem 10 mg tablet RxNorm: 161796 1 Tablet(s) PO HS PRN 03/25/2013 07/09/2013 Inactive gentamicin 0.3 % Eye Drops RxNorm: 412694 3 Drop(s) OPH QID three gtts to each eye QID x 7 days 03/11/2013 03/10/2013 Inactive gentamicin 0.3 % eye drops RxNorm: 827852 3 Drop(s) OPH QID three gtts to each eye QID x 7 days 03/11/2013 03/17/2013 Inactive Nexium 40 mg capsule,delayed release RxNorm: 450104 Capsule(s) PO TAKE ONE CAPSULE BY MOUTH EVERY DAY 02/15/2013 02/17/2014 Inactive Cymbalta 60 mg capsule,delayed release RxNorm: 221783 Capsule(s) PO TAKE ONE CAPSULE BY MOUTH TWICE A DAY 02/15/2013 02/17/2014 Inactive hydrocodone 10 mg-acetaminophen 325 mg tablet RxNorm: 6798319 1 Tablet(s) PO Q6 PRN 01/22/2013 04/22/2013 Inactive Lipitor 10 mg tablet RxNorm: 638978 Tablet(s) PO TAKE ONE TABLET BY MOUTH EVERY DAY 01/07/2013 09/11/2013 Inactive Cymbalta 60 mg capsule,delayed release RxNorm: 265392 Capsule(s) PO TAKE ONE CAPSULE BY MOUTH TWICE A DAY 01/02/2013 02/14/2013 Inactive Synthroid 100 mcg tablet RxNorm: 177868 1 Tablet(s) PO 12/03/2012 05/06/2013 Inactive Enablex 7.5 mg tablet,extended release RxNorm: 350669 1 Tablet(s) PO daily 11/28/2012 11/27/2012 Inactive Enablex 7.5 mg tablet,extended release RxNorm: 003203 1 Tablet(s) PO daily 11/28/2012 11/28/2012 Inactive scopolamine 1.5 mg 72 hr Transderm Patch RxNorm: 899958 1 Milligram(s) TD q72 hours 11/26/2012 05/06/2013 Inactive hydrochlorothiazide 25 mg tablet RxNorm: 228034 Tablet(s) PO TAKE ONE TABLET BY MOUTH EVERY DAY MUST CALL FOR APPOINTMENT 11/24/2012 07/18/2013 Inactive Cymbalta 60 mg capsule,delayed release RxNorm: 612075 Capsule(s) PO TAKE ONE CAPSULE BY MOUTH TWICE A DAY 10/26/2012 01/01/2013 Inactive Bystolic 10 mg tablet RxNorm: 003456 Tablet(s) PO TAKE ONE TABLET BY MOUTH EVERY DAY 10/12/2012 03/25/2013 Inactive zolpidem 10 mg tablet RxNorm: 056544 1 Tablet(s) PO HS PRN 10/02/2012 01/29/2013 Inactive alprazolam 0.25 mg tablet RxNorm: 012044 1 Tablet(s) PO QDAY PRN 10/02/2012 01/29/2013 Inactive Kenalog 40 mg/mL Susp for Injection RxNorm: 1369962 1 Milliliter(s) Inj 09/24/2012 09/24/2012 Inactive Diflucan 150 mg tablet RxNorm: 329835 1 Tablet(s) PO daily 09/24/2012 09/30/2012 Inactive acyclovir 400 mg tablet RxNorm: 269408 1 Tablet(s) PO QID 09/24/2012 10/08/2012 Inactive Cipro 500 mg tablet RxNorm: 030406 1 Tablet(s) PO BID 09/24/2012 09/30/2012 Inactive Tamiflu 75 mg capsule RxNorm: 053337 1 Capsule(s) PO BID 09/17/2012 09/16/2012 Inactive Tamiflu 75 mg capsule RxNorm: 890582 1 Capsule(s) PO BID 09/17/2012 09/16/2012 Inactive Tamiflu 75 mg capsule RxNorm: 694537 1 Capsule(s) PO BID please disregard order for #14 09/17/2012 09/21/2012 Inactive fluconazole 150 mg tablet RxNorm: 630057 1 Tablet(s) PO daily 09/10/2012 09/13/2012 Inactive ketoconazole 2 % Topical Cream RxNorm: 240607 Application TOP BID apply to affected area BID until gone 08/31/2012 11/01/2017 Inactive Norvasc 10 mg tablet RxNorm: 710624 Tablet(s) PO TAKE ONE TABLET BY MOUTH EVERY DAY 08/29/2012 04/22/2013 Inactive Cipro 500 mg tablet RxNorm: 480065 1 Tablet(s) PO BID 08/17/2012 08/26/2012 Inactive Flagyl 500 mg tablet RxNorm: 932973 1 Tablet(s) PO TID 08/17/2012 08/23/2012 Inactive Cipro 500 mg tablet RxNorm: 753441 1 Tablet(s) PO BID 08/17/2012 08/16/2012 Inactive zolpidem 10 mg tablet RxNorm: 561552 1 Tablet(s) PO HS PRN 08/17/2012 09/15/2012 Inactive Flagyl 500 mg tablet RxNorm: 637327 1 Tablet(s) PO TID 08/17/2012 08/16/2012 Inactive alprazolam 0.25 mg tablet RxNorm: 955576 1 Tablet(s) PO QDAY PRN 08/17/2012 09/15/2012 Inactive [place] Allergy 180 mg tablet RxNorm: 127190 1 Tablet(s) PO daily 08/08/2012 02/03/2013 Inactive hydrochlorothiazide 25 mg tablet RxNorm: 178977 1/2 Tablet(s) PO daily 08/08/2012 11/05/2012 Inactive needs appt Carafate 1 gram tablet RxNorm: 028761 1 Tablet(s) PO QID mix with 10 cc water and dissolve into slurry 08/08/2012 08/21/2012 Inactive hydrocodone 10 mg-acetaminophen 325 mg tablet RxNorm: 9143497 1 Tablet(s) PO Q6 PRN 08/08/2012 01/21/2013 Inactive Synthroid 100 mcg tablet RxNorm: 900870 1 Tablet(s) PO 08/08/2012 12/02/2012 Inactive Cymbalta 60 mg capsule,delayed release RxNorm: 418933 Capsule(s) PO 07/23/2012 10/25/2012 Inactive TAKE ONE CAPSULE BY MOUTH TWICE A DAY Nexium 40 mg capsule,delayed release RxNorm: 174409 Capsule(s) PO 06/20/2012 02/14/2013 Inactive TAKE ONE CAPSULE BY MOUTH EVERY DAY Lipitor 10 mg tablet RxNorm: 260487 Tablet(s) PO 06/20/2012 01/06/2013 Inactive TAKE ONE TABLET BY MOUTH EVERY DAY hydrochlorothiazide 25 mg tablet RxNorm: 903527 1 Tablet(s) PO daily 06/19/2012 08/07/2012 Inactive needs appt alprazolam 0.25 mg tablet RxNorm: 452724 1 Tablet(s) PO QDAY PRN 06/05/2012 07/04/2012 Inactive zolpidem 10 mg tablet RxNorm: 583928 1 Tablet(s) PO HS PRN 06/05/2012 07/04/2012 Inactive zolpidem 10 mg tablet RxNorm: 096318 1 Tablet(s) PO HS PRN 04/16/2012 05/15/2012 Inactive alprazolam 0.25 mg tablet RxNorm: 033735 1 Tablet(s) PO QDAY PRN 04/16/2012 05/15/2012 Inactive Cymbalta 60 mg capsule,delayed release RxNorm: 843653 1 Capsule(s) PO BID 03/22/2012 07/19/2012 Inactive Fioricet 50 mg-325 mg-40 mg tablet RxNorm: 051918 1 Tablet(s) PO Q4 PRN 03/22/2012 11/24/2013 Inactive Bystolic 10 mg tablet RxNorm: 413849 Tablet(s) PO 03/22/2012 10/11/2012 Inactive TAKE ONE TABLET BY MOUTH EVERY DAY potassium chloride ER 10 mEq Tab RxNorm: 462985 1 Tablet(s) PO daily 02/24/2012 03/01/2012 Inactive Lasix 20 mg Tab RxNorm: 634026 1 Tablet(s) PO daily 02/22/2012 02/21/2012 Inactive KCL 10 meq RxNorm: 1 PO daily 02/22/2012 02/21/2012 Inactive potassium chloride ER 10 mEq Tab RxNorm: 013307 1 Tablet(s) PO daily 02/22/2012 02/21/2012 Inactive Lasix 20 mg Tab RxNorm: 213246 1 Tablet(s) PO daily 02/22/2012 02/28/2012 Inactive KCL 10 meq RxNorm: 1 PO daily 02/22/2012 02/22/2012 Inactive potassium chloride ER 10 mEq Tab RxNorm: 220878 1 Tablet(s) PO daily 02/22/2012 02/23/2012 Inactive Rocephin 500 mg Solution for Injection RxNorm: 6093954 Inj 02/15/2012 02/15/2012 Inactive Nexium 40 mg capsule,delayed release RxNorm: 706964 1 Capsule(s) PO daily 02/15/2012 No Stop Date Active Bystolic 10 mg Tab RxNorm: 359658 1 Tablet(s) PO daily 02/15/2012 08/12/2012 Inactive alprazolam 0.25 mg tablet RxNorm: 716588 1 Tablet(s) PO QDAY PRN 01/31/2012 02/29/2012 Inactive zolpidem 10 mg tablet RxNorm: 110853 1 Tablet(s) PO HS PRN 01/31/2012 02/29/2012 Inactive alprazolam 0.25 mg Tab RxNorm: 204486 1 Tablet(s) PO QDAY PRN 12/16/2011 01/14/2012 Inactive zolpidem 10 mg Tab RxNorm: 883768 1 Tablet(s) PO HS PRN 12/16/2011 01/14/2012 Inactive Norvasc 10 mg tablet RxNorm: 479478 1 Tablet(s) PO daily 12/02/2011 02/21/2012 Inactive Lipitor 10 mg tablet RxNorm: 450597 1 Tablet(s) PO daily 11/16/2011 05/13/2012 Inactive zolpidem 10 mg Tab RxNorm: 754428 1 Tablet(s) PO HS PRN 10/26/2011 12/15/2011 Inactive alprazolam 0.25 mg Tab RxNorm: 567811 1 Tablet(s) PO QDAY PRN 10/26/2011 12/15/2011 Inactive hydrochlorothiazide 25 mg tablet RxNorm: 222477 1 Tablet(s) PO daily 09/05/2011 03/02/2012 Inactive Synthroid 75 mcg tablet RxNorm: 066837 1 Tablet(s) PO daily 08/01/2011 02/26/2012 Inactive Abilify 2 mg Tab RxNorm: 680955 1 Tablet(s) PO QHS 08/01/2011 09/10/2012 Inactive dicyclomine 10 mg Cap RxNorm: 816830 1 Capsule(s) PO TID 08/01/2011 10/29/2011 Inactive alprazolam 0.25 mg Tab RxNorm: 141107 1 Tablet(s) PO QDAY PRN 07/26/2011 10/25/2011 Inactive Fioricet 50 mg-325 mg-40 mg tablet RxNorm: 227482 1 Tablet(s) PO Q4 PRN 07/14/2011 03/21/2012 Inactive Rocephin 500 mg Solution for Injection RxNorm: 2773317 1 Milliliter(s) Inj 07/14/2011 08/01/2011 Inactive Nexium 40 mg Capsule, delayed release RxNorm: 602271 1 Capsule(s) PO daily 05/23/2011 10/06/2011 Inactive Bystolic 10 mg tablet RxNorm: 106063 1 Tablet(s) PO daily 05/23/2011 11/18/2011 Inactive Bystolic 10 mg Tab RxNorm: 114575 1 Tablet(s) PO daily 05/23/2011 05/22/2011 Inactive alprazolam 0.25 mg Tab RxNorm: 362630 1 Tablet(s) PO QDAY PRN 05/23/2011 07/25/2011 Inactive Influenza Virus Vaccine 0.5 mL RxNorm: IM 05/23/2011 05/23/2011 Inactive zolpidem 10 mg Tab RxNorm: 615525 1 Tablet(s) PO HS PRN 05/23/2011 10/25/2011 Inactive Rocephin 500 mg Solution for Injection RxNorm: 3343886 1 Milliliter(s) Inj 05/03/2011 07/14/2011 Inactive Kenalog 40 mg/mL Susp for Injection RxNorm: 9447487 1 Milliliter(s) Inj 05/03/2011 07/14/2011 Inactive Bactrim DS 800 mg-160 mg Tab RxNorm: 545490 1 Tablet(s) PO BID 05/03/2011 08/01/2011 Inactive Bystolic 10 mg tablet RxNorm: 967849 1 Tablet(s) PO daily No Start Date Active Flonase 50 mcg/actuation nasal spray,suspension RxNorm: 6845948 2 [place] NASAL daily No Start Date 08/05/2013 Inactive Levaquin 500 mg tablet RxNorm: 178255 Tablet(s) PO No Start Date 04/19/2017 Inactive Duragesic 50 mcg/hr transdermal patch RxNorm: 931159 1 TD q72 hours No Start Date 01/13/2014 Inactive Vesicare 5 mg tablet RxNorm: 216565 1 Tablet(s) PO daily No Start Date 01/06/2015 Inactive Celebrex 200 mg capsule RxNorm: 330223 1 Capsule(s) PO daily No Start Date 04/02/2014 Inactive zolpidem 10 mg Tab RxNorm: 623224 1 Tablet(s) PO HS PRN No Start Date 05/22/2011 Inactive Zyrtec 10 mg Tab RxNorm: 1949310 1 Tablet(s) PO daily No Start Date 08/08/2012 Inactive Flonase 50 mcg/actuation nasal spray,suspension RxNorm: 1793444 1 [place] NASAL daily No Start Date 11/07/2017 Inactive 1 spray to each nostril daily Nexium 40 mg Cap RxNorm: 726118 1 Capsule(s) PO daily No Start Date 05/22/2011 Inactive ketoconazole 2 % Topical Cream RxNorm: 048412 Application TOP BID apply to affected area BID until gone No Start Date 08/30/2012 Inactive aspirin 81 mg tablet RxNorm: 847789 1 Tablet(s) PO daily No Start Date 11/13/2017 Inactive Cymbalta 60 mg capsule,delayed release RxNorm: 338702 1 Capsule(s) PO BID No Start Date 03/21/2012 Inactive alprazolam 0.25 mg Tab RxNorm: 794410 1 Tablet(s) PO QDAY PRN No Start Date 05/22/2011 Inactive baclofen 10 mg tablet RxNorm: 282027 1 Tablet(s) PO TID as needed muscle spasms No Start Date 11/14/2017 Inactive Toprol XL 100 mg 24 hr Tab RxNorm: 990946 1 Tablet(s) PO BID No Start Date 04/25/2011 Inactive Xanax 0.25 mg tablet RxNorm: 505874 1 Tablet(s) PO daily as needed No Start Date 12/27/2015 Inactive Bystolic 10 mg Tab RxNorm: 654910 1 Tablet(s) PO daily No Start Date 05/22/2011 Inactive Fioricet 50 mg-325 mg-40 mg Tab RxNorm: 086235 1 Tablet(s) PO Q4 PRN No Start Date 07/13/2011 Inactive albuterol sulfate HFA 90 mcg/Actuation Aerosol Inhaler RxNorm: 4839063 1 INH Q4 PRN No Start Date 01/06/2015 Inactive Imitrex 50 mg tablet RxNorm: 489811 1 Tablet(s) PO Q8 as needed may repeat x1 dose in 1 hour of inital dose. No Start Date 02/24/2016 Inactive dc fioricet Tessalon 200 mg Cap RxNorm: 258770 1 Capsule(s) PO Q4 PRN No Start Date 02/14/2012 Inactive Zithromax Z-Sergio 250 mg tablet RxNorm: 491725 Tablet(s) PO No Start Date 11/10/2013 Inactive hydrochlorothiazide 25 mg Tab RxNorm: 892611 1 Tablet(s) PO daily No Start Date 09/04/2011 Inactive Fish Oil 1,000 mg Cap RxNorm: 1 Capsule(s) PO TID No Start Date 11/08/2017 Inactive Deplin 15 mg Tab RxNorm: 1 Tablet(s) PO daily No Start Date 08/01/2011 Inactive Brilinta 90 mg tablet RxNorm: 3769057 1 Tablet(s) PO BID No Start Date 11/23/2015 Inactive Synthroid 75 mcg Tab RxNorm: 475089 1 Tablet(s) PO daily No Start Date 07/31/2011 Inactive ciprofloxacin 0.3 % eye drops RxNorm: 237751 2 Drop(s) ophthalmic (eye) Q2H while awake x 2 days, then Q4H x 5 days No Start Date 11/22/2017 Inactive scopolamine 1.5 mg 72 hr Transderm Patch RxNorm: 555335 1 Milligram(s) TD q72 hours No Start Date 11/25/2012 Inactive hydrocodone-acetaminophen 10 mg-325 mg tablet RxNorm: 3623912 1 Tablet(s) PO Q6 PRN No Start Date 08/07/2012 Inactive Phenergan with Codeine Syrup RxNorm: 5-10 Milliliter(s) PO Q6 PRN No Start Date 02/14/2012 Inactive Norvasc 10 mg Tab RxNorm: 516394 1 Tablet(s) PO daily No Start Date 12/01/2011 Inactive Zithromax Z-Sergio 250 mg Tab RxNorm: 219906 Tablet(s) PO No Start Date 08/01/2011 Inactive Medication Administered Medication Codes Instructions Start Date Status ceftriaxone 500 mg solution for injection RxNorm: 6012381 05/28/2018 No longer Active Kenalog 40 mg/mL suspension for injection RxNorm: 5253506 Milliliter 05/28/2018 No longer Active ceftriaxone 500 mg solution for injection RxNorm: 3698022 500Milligram 01/19/2018 No longer Active Kenalog 40 mg/mL suspension for injection RxNorm: 6670996 1Milliliter 01/19/2018 No longer Active Kenalog 40 mg/mL suspension for injection RxNorm: 7777101 1Milliliter 06/27/2017 No longer Active Kenalog 40 mg/mL suspension for injection RxNorm: 6351410 Milliliter 04/20/2017 No longer Active Kenalog 40 mg/mL suspension for injection RxNorm: 1951367 1Milliliter 03/14/2017 No longer Active ceftriaxone 500 mg solution for injection RxNorm: 7340936 1Milliliter 11/28/2016 No longer Active Kenalog 40 mg/mL suspension for injection RxNorm: 6317388 Milliliter 11/07/2016 No longer Active ceftriaxone 500 mg solution for injection RxNorm: 8256043 11/07/2016 No longer Active ceftriaxone 500 mg solution for injection RxNorm: 8800739 12/07/2015 No longer Active Kenalog 40 mg/mL suspension for injection RxNorm: 6461523 1Milliliter 11/24/2015 No longer Active ceftriaxone 500 mg solution for injection RxNorm: 8947133 Milliliter 11/24/2015 No longer Active promethazine 25 mg/mL injection solution RxNorm: 009676 Milliliter 08/27/2015 No longer Active ketorolac 60 mg/2 mL intramuscular solution RxNorm: 800400 Milliliter 08/27/2015 No longer Active Kenalog 40 mg/mL suspension for injection RxNorm: 9872458 Milliliter 08/10/2015 No longer Active ceftriaxone 500 mg solution for injection RxNorm: 6578627 08/10/2015 No longer Active ceftriaxone 500 mg solution for injection RxNorm: 2634405 1Milliliter 07/28/2015 No longer Active Kenalog 40 mg/mL suspension for injection RxNorm: 2699405 Milliliter 03/19/2015 No longer Active Kenalog 40 mg/mL suspension for injection RxNorm: 2884171 Milliliter 06/23/2014 No longer Active ceftriaxone 500 mg solution for injection RxNorm: 095461 06/23/2014 No longer Active Rocephin 500 mg solution for injection RxNorm: 116762 1mlMilliliter 09/24/2013 No longer Active Rocephin 500 mg solution for injection RxNorm: 824059 1Milliliter 09/19/2013 No longer Active Rocephin 500 mg solution for injection RxNorm: 6373847 1 07/10/2013 No longer Active Kenalog 40 mg/mL suspension for injection RxNorm: 8714301 1Milliliter 07/10/2013 No longer Active Kenalog 40 mg/mL Susp for Injection RxNorm: 8809536 1Milliliter 09/24/2012 No longer Active Rocephin 500 mg Solution for Injection RxNorm: 1473797 02/15/2012 No longer Active Influenza Virus Vaccine [...] Observation Code Item Item Code Result Date Free T4 [id number] FREE T4 0.71 ng/dL 10/31/2018 Tsh Ord6 TSH (3rd IS) 7.87 uIU/mL 10/31/2018 Lipid Ord30 CHOL 170 mg/dL 10/31/2018 Lipid Ord30 HDL 53.0 mg/dl 10/31/2018 Lipid Ord30 TRIG 85 mg/dL 10/31/2018 Lipid Ord30 LDL 100 mg/dL 10/31/2018 Lipid Ord30 C/HDL 3.2 Ratio 10/31/2018 Comp Metabolic Ren585 NA 142 mEq/L 10/31/2018 Comp Metabolic Biz654 K 4.0 mEq/L 10/31/2018 Comp Metabolic Dgg941 CL 106 mEq/L 10/31/2018 Comp Metabolic Zbu849 CO2 27.0 mEq/L 10/31/2018 Comp Metabolic Yob091 ANION GAP 13 10/31/2018 Comp Metabolic Jyv611 GLUCOSE 114 mg/dL 10/31/2018 Comp Metabolic Udw667 Creat 0.7 mg/dL 10/31/2018 Comp Metabolic Jws552 eGFR 90 ml/min/1.73m2 10/31/2018 Comp Metabolic Dro150 BUN 21 mg/dL 10/31/2018 Comp Metabolic Dgq163 B/C Ratio 30.9 Ratio 10/31/2018 Comp Metabolic Xbu781 CALCIUM 9.7 mg/dL 10/31/2018 Comp Metabolic Ehr826 ALK PHOS 63 U/L 10/31/2018 Comp Metabolic Wku345 AST(SGOT) 24 U/L 10/31/2018 Comp Metabolic Kdk446 ALT(SGPT) 21 U/L 10/31/2018 Comp Metabolic Uss758 BILI T 0.6 mg/dL 10/31/2018 Comp Metabolic Ofo416 ALBUMIN 4.1 g/dL 10/31/2018 Comp Metabolic Yhy310 TPRO 6.6 g/dL 10/31/2018 Comp Metabolic Bvd955 GLOB 2.5 g/dL 10/31/2018 Comp Metabolic Imo772 A/G Ratio 1.7 Ratio 10/31/2018 Comp Metabolic Juz566 Osmo 287 mOsmo 10/31/2018 Cbc With Differential [...] 30.9 pg 10/31/2018 Cbc With Differential Ord2 [place]% 8.0 % 10/31/2018 Cbc With Differential Ord2 [...] 1.88 K/ul 10/31/2018 Cbc With Differential Ord2 [place] ABS# 0.6 K/ul 10/31/2018 Cbc With Differential Ord2 Eos ABS# 0.5 K/ul 10/31/2018 Cbc With Differential Ord2 Baso ABS# 0.1 K/ul 10/31/2018 Comp Metabolic Jwg417 NA 141 mEq/L 09/12/2017 Comp Metabolic Uzn868 K 4.1 mEq/L 09/12/2017 Comp Metabolic Kbi929 CL 105 mEq/L 09/12/2017 Comp Metabolic Krc376 CO2 30.0 mEq/L 09/12/2017 Comp Metabolic Snx989 ANION GAP 10 09/12/2017 Comp Metabolic Mef473 GLUCOSE 97 mg/dL 09/12/2017 Comp Metabolic Lhc140 Creat 0.7 mg/dL 09/12/2017 Comp Metabolic Grz049 eGFR 91 ml/min/1.73m2 09/12/2017 Comp Metabolic Hak866 BUN 18 mg/dL 09/12/2017 Comp Metabolic Yrx224 B/C Ratio 26.5 Ratio 09/12/2017 Comp Metabolic Jiq736 CALCIUM 9.7 mg/dL 09/12/2017 Comp Metabolic Fln409 ALK PHOS 60 U/L 09/12/2017 Comp Metabolic Scn644 AST(SGOT) 22 U/L 09/12/2017 Comp Metabolic Ccp873 ALT(SGPT) 23 U/L 09/12/2017 Comp Metabolic Nww651 BILI T 0.4 mg/dL 09/12/2017 Comp Metabolic Iko294 ALBUMIN 3.8 g/dL 09/12/2017 Comp Metabolic Tuw479 TPRO 6.4 g/dL 09/12/2017 Comp Metabolic Qcu202 GLOB 2.6 g/dL 09/12/2017 Comp Metabolic Ijm647 A/G Ratio 1.5 Ratio 09/12/2017 Comp Metabolic Szm929 Osmo 283 mOsmo 09/12/2017 Cbc With Differential [...] 30.7 pg 09/12/2017 Cbc With Differential Ord2 [place]% 7.2 % 09/12/2017 Cbc With Differential Ord2 [...] 2.46 K/ul 09/12/2017 Cbc With Differential Ord2 [place] ABS# 0.6 K/ul 09/12/2017 Cbc With Differential [...] 31.4 pg 11/07/2016 Cbc With Differential Ord2 [place]% 6.1 % 11/07/2016 Cbc With Differential Ord2 [...] 2.48 K/ul 11/07/2016 Cbc With Differential Ord2 [place] ABS# 0.6 K/ul 11/07/2016 Cbc With Differential Ord2 Eos ABS# 0.3 K/ul 11/07/2016 Cbc With Differential Ord2 Baso ABS# 0.1 K/ul 11/07/2016 Comp Metabolic Rmq974 NA 139 mEq/L 11/07/2016 Comp Metabolic Lmv435 K 3.8 mEq/L 11/07/2016 Comp Metabolic Kxl926 CL 106 mEq/L 11/07/2016 Comp Metabolic Ieo364 CO2 25.0 mEq/L 11/07/2016 Comp Metabolic Waw401 ANION GAP 12 11/07/2016 Comp Metabolic Cmq186 GLUCOSE 98 mg/dL 11/07/2016 Comp Metabolic Gse032 Creat 0.8 mg/dL 11/07/2016 Comp Metabolic Osu182 eGFR 71 ml/min/1.73m2 11/07/2016 Comp Metabolic Sgq315 BUN 36 mg/dL 11/07/2016 Comp Metabolic Lwj619 B/C Ratio 42.9 Ratio 11/07/2016 Comp Metabolic Axk501 CALCIUM 9.9 mg/dL 11/07/2016 Comp Metabolic Hvn291 ALK PHOS 57 U/L 11/07/2016 Comp Metabolic Pzu749 AST(SGOT) 24 U/L 11/07/2016 Comp Metabolic Scr700 ALT(SGPT) 28 U/L 11/07/2016 Comp Metabolic Stj838 BILI T 0.4 mg/dL 11/07/2016 Comp Metabolic Jqw644 ALBUMIN 4.2 g/dL 11/07/2016 Comp Metabolic Scr968 TPRO 7.0 g/dL 11/07/2016 Comp Metabolic Vmv158 GLOB 2.8 g/dL 11/07/2016 Comp Metabolic Rzu562 A/G Ratio 1.5 Ratio 11/07/2016 Comp Metabolic Kpp925 Osmo 286 mOsmo 11/07/2016 Free T4 Tpg317 FREE T4 0.75 ng/dL 11/07/2016 Tsh Ord6 hTSH II 3.46 uIU/mL 11/07/2016 Comp Metabolic Ply187 NA 138 mEq/L 05/10/2016 Comp Metabolic Uxo111 K 3.8 mEq/L 05/10/2016 Comp Metabolic Tjz692 CL 102 mEq/L 05/10/2016 Comp Metabolic Kaq545 CO2 29.0 mEq/L 05/10/2016 Comp Metabolic Mmq665 ANION GAP 11 05/10/2016 Comp Metabolic Xog669 GLUCOSE 107 mg/dL 05/10/2016 Comp Metabolic Uzq577 Creat 0.7 mg/dL 05/10/2016 Comp Metabolic Tdf940 eGFR 93 ml/min/1.73m2 05/10/2016 Comp Metabolic Loc523 BUN 18 mg/dL 05/10/2016 Comp Metabolic Plp382 B/C Ratio 26.9 Ratio 05/10/2016 Comp Metabolic Zer853 CALCIUM 9.8 mg/dL 05/10/2016 Comp Metabolic Mec416 ALK PHOS 60 U/L 05/10/2016 Comp Metabolic Zto493 AST(SGOT) 21 U/L 05/10/2016 Comp Metabolic Auj833 ALT(SGPT) 23 U/L 05/10/2016 Comp Metabolic Yyw506 BILI T 0.5 mg/dL 05/10/2016 Comp Metabolic Fau591 ALBUMIN 4.1 g/dL 05/10/2016 Comp Metabolic Wqq155 TPRO 6.7 g/dL 05/10/2016 Comp Metabolic Jrr950 GLOB 2.7 g/dL 05/10/2016 Comp Metabolic Ctr153 A/G Ratio 1.5 Ratio 05/10/2016 Comp Metabolic Iii359 Osmo 278 mOsmo 05/10/2016 Lipid Ord30 CHOL 169 mg/dL 05/10/2016 Lipid Ord30 HDL 50.0 mg/dl 05/10/2016 Lipid Ord30 TRIG 161 mg/dL 05/10/2016 Lipid Ord30 LDL 87 mg/dL 05/10/2016 Lipid Ord30 C/HDL 3.4 Ratio 05/10/2016 Comp Metabolic Dfg111 NA 137 mEq/L 06/12/2015 Comp Metabolic Oks322 K 3.8 mEq/L 06/12/2015 Comp Metabolic Gbo039 CL 104 mEq/L 06/12/2015 Comp Metabolic Tck457 CO2 24.0 mEq/L 06/12/2015 Comp Metabolic Swe898 ANION GAP 13 06/12/2015 Comp Metabolic Amd007 GLUCOSE 92 mg/dL 06/12/2015 Comp Metabolic Xrg556 Creat 0.7 mg/dL 06/12/2015 Comp Metabolic Guv507 eGFR 87 ml/min/1.73m2 06/12/2015 Comp Metabolic Her405 BUN 31 mg/dL 06/12/2015 Comp Metabolic Qsz465 B/C Ratio 43.7 Ratio 06/12/2015 Comp Metabolic Fnt591 CALCIUM 10.0 mg/dL 06/12/2015 Comp Metabolic Utw545 ALK PHOS 58 U/L 06/12/2015 Comp Metabolic Qvk946 AST(SGOT) 32 U/L 06/12/2015 Comp Metabolic Hng275 ALT(SGPT) 33 U/L 06/12/2015 Comp Metabolic Ftg143 BILI T 0.5 mg/dL 06/12/2015 Comp Metabolic Izf323 ALBUMIN 4.1 g/dL 06/12/2015 Comp Metabolic Uik251 TPRO 6.6 g/dL 06/12/2015 Comp Metabolic Err398 GLOB 2.5 g/dL 06/12/2015 Comp Metabolic Pua890 A/G Ratio 1.6 Ratio 06/12/2015 Comp Metabolic Rya171 Osmo 280 mOsmo 06/12/2015 Cbc With Differential [...] Differential Ord2 RDW 14.2 % 06/12/2015 CBC 4495195 WBC 8.7 10e9/L 04/30/2013 CBC 2005525 RBC 4.63 10e12/L 04/30/2013 CBC 1644957 HGB 14.1 g/dL 04/30/2013 CBC 5367165 HCT DET 42.2 % 04/30/2013 CBC 0109656 MCV 91.1 fL 04/30/2013 CBC 6461085 MCH 30.5 pg 04/30/2013 CBC 5345255 MCHC 33.4 g/dL 04/30/2013 CBC 5942257 PLT 248 10e9/L 04/30/2013 CBC 9316143 MPV 12.1 fL 04/30/2013 CBC 3992546 LARA % 59.0 % 04/30/2013 CBC 2839967 LY % 27.6 % 04/30/2013 CBC 3653313 MON % 8.0 % 04/30/2013 CBC 6302363 EOS % 4.8 % 04/30/2013 CBC 2364078 BASO % 0.6 % 04/30/2013 CBC 7621405 RDW 13.3 % 04/30/2013 CBC 0284253 ABS LARA 5.13 10e9/L 04/30/2013 CBC 6486085 ABS LYMPH 2.40 10e9/L 04/30/2013 CBC 8483773 ABS MONO 0.70 10e9/L 04/30/2013 CBC 5125753 ABS EOS 0.42 10e9/L 04/30/2013 CBC 7081869 ABS BASO 0.05 10e9/L 04/30/2013 CBC 8369113 RDW-SD 43.1 fL 04/30/2013 TSH 9046874 TSH 4.339 uIU/ML 04/30/2013 A1C HPLC 3156618 A1C HPLC 04701-3 5.6 % 04/30/2013 FREE T4 2098967 FREE T4 0.84 NG/DL 04/30/2013 GFR CALC 4623753 GFR AA >60 ML/MIN 04/30/2013 GFR CALC 4994398 GFR NON-AA >60 ML/MIN 04/30/2013 CHEM 14 6734040 AST 22 U/L 04/30/2013 CHEM 14 8225379 ALT 22 IU/L 04/30/2013 CHEM 14 3732677 BUN 24 MG/DL 04/30/2013 CHEM 14 8814177 ALBUMIN 4.2 GM/DL 04/30/2013 CHEM 14 1080261 CHLORIDE 107 MMOL/L 04/30/2013 CHEM 14 2248233 BILI TOT 0.3 MG/DL 04/30/2013 CHEM 14 2966206 ALK PHOS 88 U/L 04/30/2013 CHEM 14 7124473 SODIUM 141 MMOL/L 04/30/2013 CHEM 14 9703471 CREATININE 0.60 MG/DL 04/30/2013 CHEM 14 4114399 CALCIUM 9.9 MG/DL 04/30/2013 CHEM 14 1973047 POTASSIUM 3.7 MMOL/L 04/30/2013 CHEM 14 2193753 PROT TOT 6.6 GM/DL 04/30/2013 CHEM 14 3305195 GLUCOSE 123 MG/DL 04/30/2013 CHEM 14 7171962 BICARB 25 MMOL/L 04/30/2013 CHEM 14 4957170 ANION GAP 9 MEQ/L 04/30/2013 LIPID GRP HDL TEST 46 MG/DL 04/30/2013 LIPID GRP TRIG 148 MG/DL 04/30/2013 LIPID GRP TEST LDL 75 MG/DL 04/30/2013 LIPID GRP CHOL 151 MG/DL 04/30/2013 LIPID GRP RCHOL/HDL 3.28 RATIO 04/30/2013 TSH 9289361 TSH 3.341 uIU/ML 11/29/2012 CBC 5537947 WBC 8.4 10e9/L 11/29/2012 CBC 7966876 RBC 4.77 10e12/L 11/29/2012 CBC 1747049 HGB 14.9 g/dL 11/29/2012 CBC 6197922 HCT DET 44.2 % 11/29/2012 CBC 3948225 MCV 92.7 fL 11/29/2012 CBC 5617066 MCH 31.2 pg 11/29/2012 CBC 4790270 MCHC 33.7 g/dL 11/29/2012 CBC 7855179 PLT 253 10e9/L 11/29/2012 CBC 1267523 MPV 11.8 fL 11/29/2012 CBC 0825434 LARA % 54.9 % 11/29/2012 CBC 5139816 LY % 29.0 % 11/29/2012 CBC 1063404 MON % 10.4 % 11/29/2012 CBC 2844745 EOS % 5.1 % 11/29/2012 CBC 5979788 BASO % 0.6 % 11/29/2012 CBC 1618243 RDW 13.8 % 11/29/2012 CBC 9608306 ABS LARA 4.61 10e9/L 11/29/2012 CBC 5821891 ABS LYMPH 2.44 10e9/L 11/29/2012 CBC 8931589 ABS MONO 0.87 10e9/L 11/29/2012 CBC 3564452 ABS EOS 0.43 10e9/L 11/29/2012 CBC 0895711 ABS BASO 0.05 10e9/L 11/29/2012 CBC 7960340 RDW-SD 45.9 fL 11/29/2012 CHEM 14 6604151 AST 25 U/L 11/29/2012 CHEM 14 3260103 ALT 26 IU/L 11/29/2012 CHEM 14 0066382 BUN 25 MG/DL 11/29/2012 CHEM 14 3049802 ALBUMIN 4.4 GM/DL 11/29/2012 CHEM 14 6298511 CHLORIDE 106 MMOL/L 11/29/2012 CHEM 14 0832556 BILI TOT 0.4 MG/DL 11/29/2012 CHEM 14 9350773 ALK PHOS 86 U/L 11/29/2012 CHEM 14 7184642 SODIUM 141 MMOL/L 11/29/2012 CHEM 14 7784410 CREATININE 0.80 MG/DL 11/29/2012 CHEM 14 3309685 CALCIUM 9.7 MG/DL 11/29/2012 CHEM 14 1079484 POTASSIUM 4.0 MMOL/L 11/29/2012 CHEM 14 6327775 PROT TOT 6.6 GM/DL 11/29/2012 CHEM 14 7580455 GLUCOSE 112 MG/DL 11/29/2012 CHEM 14 3364186 BICARB 29 MMOL/L 11/29/2012 CHEM 14 9255245 ANION GAP 6 MEQ/L 11/29/2012 A1C HPLC 8374358 A1C HPLC 73541-6 5.5 % 11/29/2012 LIPID GRP HDL TEST 54 MG/DL 11/29/2012 LIPID GRP TRIG 77 MG/DL 11/29/2012 LIPID GRP TEST LDL 78 MG/DL 11/29/2012 LIPID GRP CHOL 147 MG/DL 11/29/2012 LIPID GRP RCHOL/HDL 2.72 RATIO 11/29/2012 FREE T4 4426383 FREE T4 1.23 NG/DL 11/29/2012 GFR CALC 9968597 GFR AA >60 ML/MIN 11/29/2012 GFR CALC 7687977 GFR NON-AA >60 ML/MIN 11/29/2012 CHEM 14 4707992 AST 23 U/L 08/07/2012 CHEM 14 0027621 ALT 34 IU/L 08/07/2012 CHEM 14 3071869 BUN 26 MG/DL 08/07/2012 CHEM 14 0939626 ALBUMIN 4.4 GM/DL 08/07/2012 CHEM 14 5208891 CHLORIDE 105 MMOL/L 08/07/2012 CHEM 14 6312043 BILI TOT 0.5 MG/DL 08/07/2012 CHEM 14 3349078 ALK PHOS 79 U/L 08/07/2012 CHEM 14 7637011 SODIUM 140 MMOL/L 08/07/2012 CHEM 14 8674593 CREATININE 0.71 MG/DL 08/07/2012 CHEM 14 3744022 CALCIUM 10.4 MG/DL 08/07/2012 CHEM 14 0536243 POTASSIUM 3.8 MMOL/L 08/07/2012 CHEM 14 4508071 PROT TOT 6.8 GM/DL 08/07/2012 CHEM 14 4978610 GLUCOSE 104 MG/DL 08/07/2012 CHEM 14 2397271 BICARB 27 MMOL/L 08/07/2012 CHEM 14 7248217 ANION GAP 8 MEQ/L 08/07/2012 A1C HPLC 0945147 A1C HPLC 50396-4 5.4 % 08/07/2012 FREE T4 6047414 FREE T4 1.11 NG/DL 08/07/2012 LIPID GRP HDL TEST 50 MG/DL 08/07/2012 LIPID GRP TRIG 127 MG/DL 08/07/2012 LIPID GRP TEST LDL 93 MG/DL 08/07/2012 LIPID GRP CHOL 168 MG/DL 08/07/2012 LIPID GRP RCHOL/HDL 3.36 RATIO 08/07/2012 CBC 9037702 WBC 8.7 10e9/L 08/07/2012 CBC 5678323 RBC 4.67 10e12/L 08/07/2012 CBC 0814888 HGB 14.4 g/dL 08/07/2012 CBC 6640998 HCT DET 42.8 % 08/07/2012 CBC 0291820 MCV 91.6 fL 08/07/2012 CBC 5839458 MCH 30.8 pg 08/07/2012 CBC 9657952 MCHC 33.6 g/dL 08/07/2012 CBC 3229863 PLT 271 10e9/L 08/07/2012 CBC 8364496 MPV 12.3 fL 08/07/2012 CBC 8046236 LARA % 50.6 % 08/07/2012 CBC 8096915 LY % 34.9 % 08/07/2012 CBC 4413429 MON % 9.1 % 08/07/2012 CBC 1110153 EOS % 5.1 % 08/07/2012 CBC 8805145 BASO % 0.3 % 08/07/2012 CBC 5440650 RDW 13.6 % 08/07/2012 CBC 8245563 ABS LARA 4.40 10e9/L 08/07/2012 CBC 9707273 ABS LYMPH 3.04 10e9/L 08/07/2012 CBC 7730941 ABS MONO 0.79 10e9/L 08/07/2012 CBC 8806710 ABS EOS 0.44 10e9/L 08/07/2012 CBC 4180790 ABS BASO 0.03 10e9/L 08/07/2012 CBC 2553466 RDW-SD 44.1 fL 08/07/2012 TSH 0979585 TSH 7.419 uIU/ML 08/07/2012 GFR CALC 7991109 GFR AA >60 ML/MIN 08/07/2012 GFR CALC 0883681 GFR NON-AA >60 ML/MIN 08/07/2012 A1C HPLC 3032339 A1C HPLC 99939-9 5.3 % 02/21/2012 TSH 7896729 TSH 0.832 uIU/ML 02/16/2012 FREE T4 7139032 FREE T4 1.04 NG/DL 02/16/2012 GFR CALC 1264126 GFR AA >60 ML/MIN 02/16/2012 GFR CALC 7606381 GFR NON-AA >60 ML/MIN 02/16/2012 BMP 2446279 GLUCOSE 112 MG/DL 02/16/2012 BMP 7402254 CREATININE 0.65 MG/DL 02/16/2012 BMP 3714907 BUN 17 MG/DL 02/16/2012 BMP 2868322 SODIUM 144 MMOL/L 02/16/2012 BMP 9193677 POTASSIUM 4.0 MMOL/L 02/16/2012 BMP 6108351 CHLORIDE 107 MMOL/L 02/16/2012 BMP 1559580 BICARB 29 MMOL/L 02/16/2012 BMP 8169599 ANION GAP 8 MEQ/L 02/16/2012 BMP 7934221 CALCIUM 9.5 MG/DL 02/16/2012 CBC 4047292 WBC 7.1 10e9/L 02/16/2012 CBC 6564098 RBC 4.47 10e12/L 02/16/2012 CBC 7965239 HGB 13.5 g/dL 02/16/2012 CBC 9978433 HCT DET 40.7 % 02/16/2012 CBC 3428860 MCV 91.1 fL 02/16/2012 CBC 8475449 MCH 30.2 pg 02/16/2012 CBC 7285903 MCHC 33.2 g/dL 02/16/2012 CBC 0912022 PLT 238 10e9/L 02/16/2012 CBC 1462444 MPV 11.4 fL 02/16/2012 CBC 2484727 LARA % 55.7 % 02/16/2012 CBC 5661953 LY % 29.6 % 02/16/2012 CBC 8338036 MON % 9.2 % 02/16/2012 CBC 7875630 EOS % 5.1 % 02/16/2012 CBC 8764908 BASO % 0.4 % 02/16/2012 CBC 6469858 RDW 13.0 % 02/16/2012 CBC 6476874 ABS LARA 3.95 10e9/L 02/16/2012 CBC 9217347 ABS LYMPH 2.10 10e9/L 02/16/2012 CBC 9084319 ABS MONO 0.65 10e9/L 02/16/2012 CBC 5657951 ABS EOS 0.36 10e9/L 02/16/2012 CBC 4559271 ABS BASO 0.03 10e9/L 02/16/2012 CBC 7835189 RDW-SD 42.4 fL 02/16/2012 URINALYSIS NONAUTO W/O SCOPE 56383 Specific [place] 1.015 DateTime(Free Text in Aprima) URINALYSIS NONAUTO W/O SCOPE 02845 PH 7 DateTime(Free Text in Apr[employer]) URINALYSIS NONAUTO W/O SCOPE 80298 GLUCOSE neg DateTime(Free Text in Apr[employer]) URINALYSIS NONAUTO W/O SCOPE 57863 Protein 1+ DateTime(Free Text in Apr[employer]) URINALYSIS NONAUTO W/O SCOPE 44295 Blood neg DateTime(Free Text in Apr[employer]) URINALYSIS NONAUTO W/O SCOPE 54268 Bilirubin neg DateTime(Free Text in Apr[employer]) URINALYSIS NONAUTO W/O SCOPE 94519 Ketones neg DateTime(Free Text in Apr[employer]) URINALYSIS NONAUTO W/O SCOPE 04182 Urobilinogen neg DateTime(Free Text in Apr[employer]) URINALYSIS NONAUTO W/O SCOPE 30794 Nitrite postive DateTime(Free Text in Apr[employer]) URINALYSIS NONAUTO W/O SCOPE 14552 Leukocytes 3+ DateTime(Free Text in Apr[employer]) URINALYSIS NONAUTO W/O SCOPE 62968 Specific [place] 1.030 DateTime(Free Text in Aprima) URINALYSIS NONAUTO W/O SCOPE 19535 PH 6 DateTime(Free Text in Apr[employer]) URINALYSIS NONAUTO W/O SCOPE 40700 GLUCOSE neg DateTime(Free Text in Apr[employer]) URINALYSIS NONAUTO W/O SCOPE 62551 Protein neg DateTime(Free Text in Apr[employer]) URINALYSIS NONAUTO W/O SCOPE 02123 Blood neg DateTime(Free Text in Apr[employer]) URINALYSIS NONAUTO W/O SCOPE 05701 Bilirubin neg DateTime(Free Text in Apr[employer]) URINALYSIS NONAUTO W/O SCOPE 64670 Ketones neg DateTime(Free Text in Apr[employer]) URINALYSIS NONAUTO W/O SCOPE 03708 Urobilinogen neg DateTime(Free Text in Apr[employer]) URINALYSIS NONAUTO W/O SCOPE 18136 Nitrite neg DateTime(Free Text in Apr[employer]) URINALYSIS NONAUTO W/O SCOPE 74079 Leukocytes trace DateTime(Free Text in Apr[employer]) URINALYSIS NONAUTO W/O SCOPE 23266 Specific [place] 1.005 DateTime(Free Text in Aprima) URINALYSIS NONAUTO W/O SCOPE 88696 PH 5 DateTime(Free Text in Apr[employer]) URINALYSIS NONAUTO W/O SCOPE 92051 GLUCOSE neg DateTime(Free Text in Apr[employer]) URINALYSIS NONAUTO W/O SCOPE 48485 Protein neg DateTime(Free Text in Aprima) URINALYSIS NONAUTO W/O SCOPE 83769 Blood neg DateTime(Free Text in Aprima) URINALYSIS NONAUTO W/O SCOPE 14524 Bilirubin neg DateTime(Free Text in Aprima) URINALYSIS NONAUTO W/O SCOPE 39166 Ketones neg DateTime(Free Text in Aprima) URINALYSIS NONAUTO W/O SCOPE 44281 Urobilinogen neg DateTime(Free Text in Aprima) URINALYSIS NONAUTO W/O SCOPE 78330 Nitrite neg DateTime(Free Text in Aprima) URINALYSIS NONAUTO W/O SCOPE 84975 Leukocytes neg DateTime(Free Text in Aprima) UA 18765 Specific [place] 1.030 DateTime(Free Text in Aprima) UA 87064 PH 5 DateTime(Free Text in Aprima) UA 05949 GLUCOSE neg DateTime(Free Text in Aprima) UA 44719 Protein trace DateTime(Free Text in Aprima) UA 57717 Blood large DateTime(Free Text in Aprima) UA 94025 Bilirubin neg DateTime(Free Text in Aprima) UA 27962 Ketones neg DateTime(Free Text in ) UA 27523 Urobilinogen neg DateTime(Free Text in ) UA 84777 Nitrite neg DateTime(Free Text in ) UA 67730 Leukocytes large DateTime(Free Text in ) Review [...] time 06/23/2014 None Full Exam - General 1995 Constitutional general appearance Overall: well developed 06/05/2014 [...] erythematous 03/07/2014 None Full Exam - General 1995 Constitutional general appearance Overall: well developed 11/21/2013 [...] station 12/03/2012 None Full Exam - General 1995 Musculoskeletal [...] 1995 Respiratory respiratory effort/rhythm Overall: no retractions 09/10/2012 [...] rate 02/15/2012 None Full Exam - General 1995 Constitutional general appearance Overall: well nourished 02/15/2012 [...] gait 02/15/2012 None Full Exam - General 1995 Constitutional general appearance Overall: well nourished 11/10/2011 [...] Codes Date URINALYSIS NONAUTO W/O SCOPE CPT-4: 27003 07/10/2018 TRIAMCINOLONE ACET INJ NOS CPT-4: J3301 05/28/2018 ROCEPHIN, PER 250 MG CPT- 4: J0696 05/28/2018 ROCEPHIN, PER 250 MG CPT- 4: J0696 01/19/2018 TRIAMCINOLONE ACET INJ NOS CPT-4: J3301 01/19/2018 PPPS, SUBSEQ VISIT CPT- 4: G0439 11/23/2017 TRIAMCINOLONE ACET INJ NOS CPT-4: J3301 06/27/2017 THER/PROPH/DIAG INJ SC/IM CPT-4: 80881 04/20/2017 TRIAMCINOLONE ACET INJ NOS CPT-4: J3301 04/20/2017 TRIAMCINOLONE ACET INJ NOS CPT-4: J3301 03/14/2017 ROCEPHIN, PER 250 MG CPT- 4: J0696 03/14/2017 DESTRUCT PREMALG LESION CPT-4: 88245 12/05/2016 DESTRUCT PREMALG LES 2-14 CPT-4: 49257 12/05/2016 URINALYSIS NONAUTO W/O SCOPE CPT-4: 19037 11/28/2016 ROCEPHIN, PER 250 MG CPT- 4: J0696 11/28/2016 PPPS, SUBSEQ VISIT CPT- 4: G0439 11/07/2016 THER/PROPH/DIAG INJ SC/IM CPT-4: 57821 11/07/2016 TRIAMCINOLONE ACET INJ NOS CPT-4: J3301 11/07/2016 ROCEPHIN, PER 250 MG CPT- 4: J0696 11/07/2016 THER/PROPH/DIAG INJ SC/IM CPT-4: 56161 08/15/2016 TRIAMCINOLONE ACET INJ NOS CPT-4: J3301 08/15/2016 ROCEPHIN, PER 250 MG CPT- 4: J0696 08/15/2016 URINALYSIS NONAUTO W/O SCOPE CPT-4: 31828 05/05/2016 ROCEPHIN, PER 250 MG CPT- 4: J0696 12/07/2015 TRIAMCINOLONE ACET INJ NOS CPT-4: J3301 11/24/2015 ROCEPHIN, PER 250 MG CPT- 4: J0696 11/24/2015 THER/PROPH/DIAG INJ SC/IM CPT-4: 87317 11/24/2015 THER/PROPH/DIAG INJ SC/IM CPT-4: 90889 08/27/2015 KETOROLAC TROMETHAMINE INJ CPT-4: J1885 08/27/2015 PROMETHAZINE HCL INJECTION CPT-4: J2550 08/27/2015 THER/PROPH/DIAG INJ SC/IM CPT-4: 54262 08/10/2015 TRIAMCINOLONE ACET INJ NOS CPT-4: J3301 08/10/2015 ROCEPHIN, PER 250 MG CPT- 4: J0696 08/10/2015 C WOUN RTS (CULTURE OTHR SPECIMN AEROBIC) CPT-4: 99390 07/28/2015 THER/PROPH/DIAG INJ SC/IM CPT-4: 67966 03/19/2015 TRIAMCINOLONE ACET INJ NOS CPT-4: J3301 03/19/2015 ROCEPHIN, PER 250 MG CPT- 4: J0696 06/23/2014 TRIAMCINOLONE ACET INJ NOS CPT-4: J3301 06/23/2014 INJ TRIGGER POINT 1/2 MUSCL CPT-4: 95217 06/05/2014 URINALYSIS NONAUTO W/O SCOPE CPT-4: 77659 02/11/2014 URINALYSIS NONAUTO W/O SCOPE CPT-4: 55110 10/15/2013 ROCEPHIN, PER 250 MG CPT- 4: J0696 09/24/2013 THER/PROPH/DIAG INJ SC/IM CPT-4: 35317 09/19/2013 ROCEPHIN, PER 250 MG CPT- 4: J0696 09/19/2013 PRESCRIP TRANSMIT VIA ERX SY CPT-4: G8553 08/05/2013 ROCEPHIN, PER 250 MG CPT- 4: J0696 07/10/2013 THER/PROPH/DIAG INJ SC/IM CPT-4: 60396 07/10/2013 TRIAMCINOLONE ACET INJ NOS CPT-4: J3301 07/10/2013 PRESCRIP TRANSMIT VIA ERX SY CPT-4: G8553 07/10/2013 47094 EST. PATIENT, LEVEL III CPT-4: 86466 06/03/2013 PRESCRIP TRANSMIT VIA ERX SY CPT-4: G8553 06/03/2013 PRESCRIP TRANSMIT VIA ERX SY CPT-4: G8553 05/07/2013 ROUTINE VENIPUNCTURE CPT- 4: 92991 04/30/2013 ROUTINE VENIPUNCTURE CPT- 4: 25983 11/29/2012 TRIAMCINOLONE ACET INJ NOS CPT-4: J3301 09/24/2012 THER/PROPH/DIAG INJ SC/IM CPT-4: 04561 09/24/2012 URINALYSIS NONAUTO W/O SCOPE CPT-4: 49825 09/24/2012 PRESCRIP TRANSMIT VIA ERX SY CPT-4: G8553 09/24/2012 PRESCRIP TRANSMIT VIA ERX SY CPT-4: G8553 09/10/2012 PRESCRIP TRANSMIT VIA ERX SY CPT-4: G8553 08/08/2012 ROUTINE VENIPUNCTURE CPT- 4: 37387 08/07/2012 ROUTINE VENIPUNCTURE CPT- 4: 97963 02/16/2012 URINALYSIS NONAUTO W/O SCOPE CPT-4: 58977 02/15/2012 ROCEPHIN, PER 250 MG CPT- 4: J0696 02/15/2012 PRESCRIP TRANSMIT VIA ERX SY CPT-4: G8553 02/15/2012 ROUTINE VENIPUNCTURE CPT- 4: 87102 11/08/2011 ROCEPHIN, PER 250 MG CPT- 4: J0696 07/14/2011 THER/PROPH/DIAG INJ SC/IM CPT-4: 77667 07/14/2011 Influenza Virus Vaccine, Split Virus, >3 Yrs, IM CPT-4: 38267 05/23/2011 IMMUNIZATION ADMIN CPT- 4: 25419 05/23/2011 THER/PROPH/DIAG INJ SC/IM CPT-4: 24095 05/03/2011 ROCEPHIN, PER 250 MG CPT- 4: J0696 05/03/2011 TRIAMCINOLONE ACET INJ NOS CPT-4: J3301 05/03/2011 Vital Signs Date Vital 11/27/2018 Blood Pressure 1: 144/82 Code: 8480-6 Heart Rate 1: 67 bpm SpO2: 93% 11/16/2018 Blood Pressure 1: 168/100 Code: 8480-6 Heart Rate 1: 74 bpm SpO2: 96% 11/13/2018 Blood Pressure 1: 184/98 Code: 8480-6 BMI: 32.1 Code: 42294-1 Heart Rate 1: 68 bpm Height: 4'11" SpO2: 96% Weight: 159 lbs 10/30/2018 Blood Pressure 1: 158/98 Code: 8480-6 BMI: 31.7 Code: 30847-0 Heart Rate 1: 80 bpm Height: 4'11" SpO2: 96% Weight: 157 lbs 10/08/2018 Blood Pressure 1: 140/80 Code: 8480-6 BMI: 32.1 Code: 13117-5 Heart Rate 1: 92 bpm Height: 4'11" SpO2: 103% Weight: 159 lbs 07/16/2018 Blood Pressure 1: 142/80 Code: 8480-6 BMI: 31.1 Code: 77358-5 Heart Rate 1: 78 bpm Height: 4'11" SpO2: 98% Weight: 154 lbs 07/10/2018 Blood Pressure 1: 156/82 Code: 8480-6 BMI: 31.1 Code: 85985-3 Heart Rate 1: 63 bpm Height: 4'11" SpO2: 99% Weight: 154 lbs 05/28/2018 Blood Pressure 1: 142/80 Code: 8480-6 Heart Rate 1: 82 bpm Height: SpO2: 97% Temperature: 35.9 (C) / 96.6 (F) Weight: 02/07/2018 Height: Weight: 01/19/2018 Blood Pressure 1: 128/76 Code: 8480-6 BMI: 31.2 Code: 41403-6 Heart Rate 1: 71 bpm Height: 4'11" SpO2: 96% Temperature: 36.5 (C) / 97.7 (F) Weight: 154 lbs 8 oz 11/23/2017 Blood Pressure 1: 146/80 Code: 8480-6 BMI: 31.7 Code: 19329-4 Heart Rate 1: 64 bpm Height: 4'11" SpO2: 97% Waist Measure (cm): 89 cm Weight: 157 lbs 09/12/2017 Blood Pressure 1: 140/86 Code: 8480-6 Heart Rate 1: 62 bpm SpO2: 96% Temperature: 36.6 (C) / 97.8 (F) Weight: 153 lbs 07/25/2017 Blood Pressure 1: 140/72 Code: 8480-6 BMI: 31.3 Code: 49114-4 Heart Rate 1: 76 bpm Height: 4'11" SpO2: 97% Temperature: 37.2 (C) / 99.0 (F) Weight: 155 lbs 06/27/2017 Blood Pressure 1: 144/84 Code: 8480-6 BMI: 31.1 Code: 56124-3 Heart Rate 1: 63 bpm Height: 4'11" SpO2: 99% Temperature: 36.4 (C) / 97.6 (F) Weight: 154 lbs 05/08/2017 Blood Pressure 1: 142/86 Code: 8480-6 BMI: 30.9 Code: 06123-1 Height: 4'11" Temperature: 36.3 (C) / 97.4 (F) Weight: 153 lbs 03/14/2017 Blood Pressure 1: 146/82 Code: 8480-6 BMI: 30.9 Code: 58733-7 Heart Rate 1: 64 bpm Height: 4'11" SpO2: 94% Weight: 153 lbs 02/20/2017 Blood Pressure 1: 142/80 Code: 8480-6 BMI: 30.9 Code: 03616-4 Heart Rate 1: 75 bpm Height: 4'11" SpO2: 97% Weight: 153 lbs 02/06/2017 Blood Pressure 1: 138/90 Code: 8480-6 BMI: 31.5 Code: 46908-2 Heart Rate 1: 61 bpm Height: 4'11" SpO2: 98% Weight: 156 lbs 12/05/2016 Blood Pressure 1: 122/72 Code: 8480-6 Heart Rate 1: 59 bpm Height: 4'11" SpO2: 98% Weight: 11/28/2016 Blood Pressure 1: 154/86 Code: 8480-6 BMI: 31.3 Code: 27784-5 Heart Rate 1: 64 bpm Height: 4'11" SpO2: 94% Temperature: 36.2 (C) / 97.2 (F) Weight: 155 lbs 11/07/2016 Blood Pressure 1: 128/64 Code: 8480-6 BMI: 31.5 Code: 02447-0 Heart Rate 1: 59 bpm Height: 4'11" SpO2: 97% Weight: 156 lbs 08/15/2016 Blood Pressure 1: 110/62 Code: 8480-6 BMI: 31.5 Code: 47539-3 Heart Rate 1: 76 bpm Height: 4'11" SpO2: 97% Weight: 156 lbs 06/07/2016 Blood Pressure 1: 120/80 Code: 8480-6 BMI: 32.9 Code: 60127-2 Heart Rate 1: 63 bpm Height: 4'11" SpO2: 93% Temperature: 36.5 (C) / 97.7 (F) Weight: 163 lbs 03/15/2016 Blood Pressure 1: 90/42 Code: 8480-6 Heart Rate 1: 65 bpm SpO2: 94% 03/14/2016 Blood Pressure 1: 188/110 Code: 8480-6 Heart Rate 1: 68 bpm SpO2: 96% 02/22/2016 Blood Pressure 1: 158/80 Code: 8480-6 BMI: 32.7 Code: 31103-8 Heart Rate 1: 71 bpm Height: 4'11" SpO2: 95% Weight: 162 lbs 12/07/2015 Blood Pressure 1: 140/88 Code: 8480-6 BMI: 32.9 Code: 16418-4 Heart Rate 1: 99 bpm Height: 4'11" SpO2: 94% Temperature: 35.9 (C) / 96.6 (F) Weight: 163 lbs 11/24/2015 Blood Pressure 1: 144/78 Code: 8480-6 BMI: 33.7 Code: 88775-5 Heart Rate 1: 60 bpm Height: 4'11" SpO2: 98% Temperature: 36.6 (C) / 97.9 (F) Weight: 167 lbs 08/27/2015 Blood Pressure 1: 164/82 Code: 8480-6 BMI: 32.3 Code: 42379-6 Heart Rate 1: 60 bpm Height: 4'11" SpO2: 93% Weight: 160 lbs 08/10/2015 Blood Pressure 1: 130/60 Code: 8480-6 BMI: 32.5 Code: 72829-8 Heart Rate 1: 64 bpm Height: 4'11" SpO2: 97% Weight: 161 lbs 07/28/2015 Blood Pressure 1: 124/68 Code: 8480-6 BMI: 32.5 Code: 23102-9 Heart Rate 1: 69 bpm Height: 4'11" SpO2: 97% Weight: 161 lbs 06/11/2015 Blood Pressure 1: 148/80 Code: 8480-6 BMI: 32.9 Code: 62169-1 Heart Rate 1: 70 bpm Height: 4'11" SpO2: 94% Weight: 163 lbs 03/19/2015 Blood Pressure 1: 150/102 Code: 8480-6 Blood Pressure 2: 152/92 Code: 8480-6 BMI: 32.5 Code: 74158-6 Heart Rate 1: 71 bpm Height: 4'11" SpO2: 96% Weight: 161 lbs 01/07/2015 Blood Pressure 1: 126/84 Code: 8480-6 Heart Rate 1: 80 bpm Height: 4'11" 09/23/2014 Blood Pressure 1: 112/72 Code: 8480-6 BMI: 33.9 Code: 36493-1 Heart Rate 1: 72 bpm Height: 4'11" Weight: 168 lbs 08/05/2014 Blood Pressure 1: 140/86 Code: 8480-6 BMI: 33.3 Code: 64164-1 Height: 4'11" Weight: 165 lbs 06/23/2014 Blood Pressure 1: 132/70 Code: 8480-6 BMI: 32.9 Code: 82447-7 Heart Rate 1: 58 bpm Height: 4'11" Temperature: 36.0 (C) / 96.8 (F) Weight: 163 lbs 06/05/2014 Blood Pressure 1: 121/85 Code: 8480-6 BMI: 34.3 Code: 74911-9 Height: 4'11" Weight: 170 lbs 04/03/2014 Blood Pressure 1: 128/80 Code: 8480-6 Heart Rate 1: 88 bpm Weight: 167 lbs 03/07/2014 Blood Pressure 1: 122/82 Code: 8480-6 BMI: 33.9 Code: 75453-0 Heart Rate 1: 68 bpm Height: 4'11" Weight: 168 lbs 11/21/2013 Blood Pressure 1: 100/58 Code: 8480-6 BMI: 33.7 Code: 67809-2 Heart Rate 1: 64 bpm Height: 4'11" Weight: 167 lbs 09/24/2013 Blood Pressure 1: 148/88 Code: 8480-6 Heart Rate 1: 68 bpm Weight: 09/19/2013 Blood Pressure 1: 120/80 Code: 8480-6 BMI: 33.9 Code: 48812-6 Heart Rate 1: 80 bpm Height: 4'11" Temperature: 36.9 (C) / 98.5 (F) Weight: 168 lbs 08/05/2013 Blood Pressure 1: 128/80 Code: 8480-6 BMI: 34.3 Code: 88626-7 Heart Rate 1: 64 bpm Height: 4'11" Temperature: 36.2 (C) / 97.2 (F) Weight: 170 lbs 07/10/2013 Blood Pressure 1: 120/84 Code: 8480-6 BMI: 36.0 Code: 98919-7 Heart Rate 1: 90 bpm Height: 4'11" SpO2: 97% Temperature: 36.8 (C) / 98.2 (F) Weight: 178 lbs 06/03/2013 Blood Pressure 1: 136/94 Code: 8480-6 BMI: 34.7 Code: 79355-3 Heart Rate 1: 68 bpm Height: 4'11" Temperature: 36.7 (C) / 98.0 (F) Weight: 172 lbs 05/13/2013 Blood Pressure 1: 132/90 Code: 8480-6 Heart Rate 1: 68 bpm 05/07/2013 Blood Pressure 1: 168/100 Code: 8480-6 BMI: 34.3 Code: 58124-6 Heart Rate 1: 76 bpm Height: 4'11" Weight: 170 lbs 12/03/2012 Blood Pressure 1: 142/78 Code: 8480-6 BMI: 33.5 Code: 71158-0 Heart Rate 1: 76 bpm Height: 4'11" Weight: 166 lbs 09/24/2012 Blood Pressure 1: 116/70 Code: 8480-6 Heart Rate 1: 68 bpm Respiratory Rate: 16 bpm Temperature: 36.9 (C) / 98.4 (F) Weight: 162 lbs 09/10/2012 Blood Pressure 1: 116/80 Code: 8480-6 BMI: 33.7 Code: 87685-7 Heart Rate 1: 76 bpm Height: 4'11" [...] 1: 149/85 Code: 8480-6 BMI: 32.9 Code: 28929-0 Heart Rate 1: 79 bpm Height: 4'11" Weight: 164 lbs 05/03/2011 Blood Pressure 1: 122/79 Code: 8480-6 BMI: 30.8 Code: 58865-0 Heart Rate 1: 72 bpm Height: 5'1" Weight: 163 lbs 04/25/2011 Blood Pressure 1: 137/84 Code: 8480-6 BMI: 31.0 Code: 80477-9 Heart Rate 1: 63 bpm Height: 5'1" [...] days ago 02/15/2012 while visiting mother in [place] had uti and was put on pyridum [...] surg in december. then took trip to [facility] to see mother and has [...] bring in readings 11/10/2011 155/126 right afteer Flowitygiving after shopping all night hypertension Triggers stress 11/10/2011 None hypertension Alleviating Factors medication 11/10/2011 None hypertension Onset and Resolution gradual in onset 11/10/2011 None hypertension Quality chronic 08/01/2011 states went shopping on [employer] over night without taking any of medications [...] data Encounters Encounter Performer Location Codes Date ([id number]) Miscellaneous no charge Diagnosis: Essential (primary) hypertension[ICD10: I10] Melba Goldman MD, [facility] CPT-4: 36722 11/16/2018 ([id number]) 91722 EST. PATIENT, LEVEL III Diagnosis: Essential (primary) hypertension[ICD10: I10] Shahida Goldman MD, [facility] CPT-4: 51915 11/13/2018 ([id number]) 44692 EST. PATIENT, LEVEL IV Diagnosis: Essential (primary) hypertension[ICD10: I10] Diagnosis: Mixed hyperlipidemia[ICD10: E78.2] Diagnosis: Hypothyroidism, unspecified[ICD10: E03.9] Shahida Goldman MD, [facility] CPT-4: 13084 10/30/2018 95735 EST. PATIENT, LEVEL III Diagnosis: Other mucopurulent conjunctivitis, bilateral[ICD10: H10.023] Diagnosis: Other allergic rhinitis[ICD10: J30.89] Shahida Goldman MD, [facility] CPT-4: 23813 10/08/2018 10312 EST. PATIENT, LEVEL III Diagnosis: Essential (primary) hypertension[ICD10: I10] Diagnosis: Generalized anxiety disorder[ICD10: F41.1] Isabelle Goldman MD, [facility] CPT-4: 83184 07/16/2018 ([id number]) 97316 EST. PATIENT, LEVEL III Diagnosis: Acute recurrent maxillary sinusitis[ICD10: J01.01] Diagnosis: Frequency of micturition[ICD10: R35.0] Diagnosis: Low back pain[ICD10: M54.5] Shahida Goldman MD, [facility] CPT-4: 88991 07/10/2018 ([id number]) 28304 EST. PATIENT, LEVEL III Diagnosis: Acute recurrent maxillary sinusitis[ICD10: J01.01] Shahida Goldman MD, [facility] CPT-4: 76810 05/28/2018 ([id number]) Miscellaneous no charge Diagnosis: Laceration without foreign body, left lower leg, subsequent encounter[ICD10: S81.812D] Diagnosis: Laceration without foreign body, right lower leg, subsequent encounter[ICD10: S81.811D] Isabelle Goldman MD, [facility] CPT-4: 72821 02/08/2018 30962 EST. PATIENT, LEVEL III Diagnosis: Cellulitis of left lower limb[ICD10: L03.116] Diagnosis: Cellulitis of right lower limb[ICD10: L03.115] Diagnosis: Laceration without foreign body, left lower leg, initial encounter[ICD10: S81.812A] Diagnosis: Laceration without foreign body, right lower leg, initial encounter[ICD10: S81.811A] Isabelle Goldman MD, [facility] CPT-4: 50607 02/07/2018 ([id number]) 03803 EST. PATIENT, LEVEL IV Diagnosis: Primary generalized (osteo)arthritis[ICD10: M15.0] Diagnosis: Acute recurrent maxillary sinusitis[ICD10: J01.01] Diagnosis: Low back pain[ICD10: M54.5] Diagnosis: Other allergic rhinitis[ICD10: J30.89] Diagnosis: Obstructive sleep apnea (adult) (pediatric)[ICD10: G47.33] Shahida Goldman MD, [facility] CPT-4: 13351 01/19/2018 20704 EST. PATIENT, LEVEL IV Diagnosis: Diarrhea, unspecified[ICD10: R19.7] Diagnosis: Generalized abdominal pain[ICD10: R10.84] Diagnosis: Other allergic rhinitis[ICD10: J30.89] Diagnosis: Other acute sinusitis[ICD10: J01.80] Isabelle Goldman MD, [facility] CPT- 4: 80154 09/12/2017 52534 EST. PATIENT, LEVEL III Diagnosis: Acute laryngopharyngitis[ICD10: J06.0] Diagnosis: Other allergic rhinitis[ICD10: J30.89] Diagnosis: Cough[ICD10: R05] Diagnosis: Wheezing[ICD10: R06.2] Isabelle Goldman MD, [facility] CPT-4: 51546 07/25/2017 ([id number]) 57695 EST. PATIENT, LEVEL IV Diagnosis: Acute recurrent maxillary sinusitis[ICD10: J01.01] Diagnosis: Cervicalgia[ICD10: M54.2] Diagnosis: Diarrhea, unspecified[ICD10: R19.7] Shahida Goldman MD, [facility] CPT-4: 84190 06/27/2017 ([id number]) 49847 EST. PATIENT, LEVEL III Diagnosis: Chronic maxillary sinusitis[ICD10: J32.0] Diagnosis: Gastro-esophageal reflux disease without esophagitis[ICD10: K21.9] Shahida Goldman MD, [facility] CPT-4: 88100 05/08/2017 ([id number]) 17082 EST. PATIENT, LEVEL III Diagnosis: Acute recurrent maxillary sinusitis[ICD10: J01.01] Shahida Goldman MD, [facility] CPT-4: 40974 03/14/2017 28470 EST. PATIENT, LEVEL IV Diagnosis: Epigastric pain[ICD10: R10.13] Diagnosis: Left upper quadrant pain[ICD10: R10.12] Diagnosis: Left lower quadrant pain[ICD10: R10.32] Isabelle Goldman MD, [facility] CPT-4: 74876 02/20/2017 ([id number]) 60078 EST. PATIENT, LEVEL IV Diagnosis: Generalized anxiety disorder[ICD10: F41.1] Diagnosis: Major depressive disorder, recurrent, moderate[ICD10: F33.1] Diagnosis: Left upper quadrant pain[ICD10: R10.12] Diagnosis: Epigastric pain[ICD10: R10.13] Diagnosis: Actinic keratosis[ICD10: L57.0] Melba Goldman MD, [facility] CPT-4: 99908 02/06/2017 ([id number]) 73592 EST. PATIENT, LEVEL III Diagnosis: Actinic keratosis[ICD10: L57.0] Diagnosis: Major depressive disorder, recurrent, moderate[ICD10: F33.1] Melba Goldman MD, [facility] CPT-4: 48274 12/05/2016 ([id number]) 23038 EST. PATIENT, LEVEL III Diagnosis: Acute recurrent maxillary sinusitis[ICD10: J01.01] Diagnosis: Dysuria[ICD10: R30.0] Shahida Goldman MD, [facility] CPT-4: 00527 11/28/2016 16340 EST. PATIENT, LEVEL IV Diagnosis: Other acute sinusitis[ICD10: J01.80] Diagnosis: Acute laryngopharyngitis[ICD10: J06.0] Diagnosis: Other allergic rhinitis[ICD10: J30.89] Isabelle Goldman MD, [facility] CPT- 4: 27935 08/15/2016 ([id number]) 84026 EST. PATIENT, LEVEL III Diagnosis: Acute recurrent maxillary sinusitis[ICD10: J01.01] Diagnosis: Low back pain[ICD10: M54.5] Shahida Goldman MD, [facility] CPT-4: 12830 06/07/2016 ([id number]) Miscellaneous no charge Diagnosis: Essential (primary) hypertension[ICD10: I10] Shahida Goldman MD, [facility] CPT-4: 63960 03/15/2016 33072 EST. PATIENT, LEVEL IV Diagnosis: Essential (primary) hypertension[ICD10: I10] Diagnosis: Headache[ICD10: R51] Diagnosis: Generalized anxiety disorder[ICD10: F41.1] Shahida Goldman MD, [facility] CPT-4: 92215 03/14/2016 57913 EST. PATIENT, LEVEL III Diagnosis: Laceration without foreign body, left lower leg, initial encounter[ICD10: S81.812A] Isabelle Goldman MD, [facility] CPT-4: 05775 02/22/2016 ([id number]) 06211 EST. PATIENT, LEVEL III Diagnosis: Acute recurrent maxillary sinusitis[ICD10: J01.01] Diagnosis: Cough[ICD10: R05] Diagnosis: Allergic rhinitis due to pollen[ICD10: J30.1] Shahida Goldman MD, [facility] CPT-4: 36632 12/07/2015 ([id number]) 73779 EST. PATIENT, LEVEL IV Diagnosis: Essential (primary) hypertension[ICD10: I10] Diagnosis: Acute recurrent maxillary sinusitis[ICD10: J01.01] Diagnosis: Generalized anxiety disorder[ICD10: F41.1] Diagnosis: Cervicalgia[ICD10: M54.2] Diagnosis: Generalized intra-abdominal and pelvic swelling, mass and lump[ICD10: R19.07] Melba Goldman MD, [facility] CPT-4: 94000 11/24/2015 14607 EST. PATIENT, LEVEL III Diagnosis: Other migraine, intractable, without status migrainosus[ICD10: G43.819] Isabelle Goldman MD, [facility] CPT-4: 49279 08/27/2015 54783 EST. PATIENT, LEVEL III Diagnosis: Acute recurrent maxillary sinusitis[ICD10: J01.01] Diagnosis: Candidal stomatitis[ICD10: B37.0] Diagnosis: Acute laryngopharyngitis[ICD10: J06.0] Isabelle Goldman MD, [facility] CPT- 4: 89088 08/10/2015 50078 EST. PATIENT, LEVEL III Diagnosis: Superficial foreign body of left hand, initial encounter[ICD10: S60.552A] Melba Goldman MD, [facility] CPT-4: 33839 07/28/2015 ([id number]) 24978 EST. PATIENT, LEVEL III Diagnosis: Essential (primary) hypertension[ICD10: I10] Diagnosis: Tinea cruris[ICD10: B35.6] Diagnosis: Abnormal levels of other serum enzymes[ICD10: R74.8] Shahida Goldman MD, [facility] CPT-4: 06484 06/11/2015 ([id number]) 37772 EST. PATIENT, LEVEL IV Diagnosis: ESSENTIAL HYPERTENSION[ICD9: 401.9] Diagnosis: Hypothyroid[ICD9: 244.9] Diagnosis: ALLERGIC RHINITIS[ICD9: 477.9] Diagnosis: Anxiety[ICD9: 300.00] Diagnosis: Sleep apnea[ICD9: 780.57] Shahida Goldman MD, [facility] CPT-4: 88580 03/19/2015 ([id number]) 07988 EST. PATIENT, LEVEL III Diagnosis: ACUTE SINUSITIS[ICD9: 461.9] Celi Frost Melba Goldman MD, [facility] CPT-4: 79305 01/07/2015 ([id number]) 04522 EST. PATIENT, LEVEL III Diagnosis: Conjunctivitis[ICD9: 372.30] Shahida Goldman MD, [facility] CPT-4: 08403 09/23/2014 37460 EST. PATIENT, LEVEL II Diagnosis: Noninfected skin tear of leg[ICD9: 891.0] Shahida Goldman MD, [facility] CPT-4: 00235 08/05/2014 ([id number]) 25655 EST. PATIENT, LEVEL III Diagnosis: Chronic maxillary sinusitis[ICD9: 473.0] Shahida Goldman MD, [facility] CPT-4: 65962 06/23/2014 14285 EST. PATIENT, LEVEL II Diagnosis: Headache[ICD9: 784.0] Shahida Goldman MD, [facility] CPT-4: 82686 06/05/2014 ([id number]) 08838 EST. PATIENT, LEVEL III Diagnosis: Abrasion of right leg[ICD9: 916.0] Diagnosis: Headache[ICD9: 784.0] Diagnosis: ALLERGIC RHINITIS[ICD9: 477.9] Shahida Goldman MD, [facility] CPT-4: 26651 04/03/2014 70086 EST. PATIENT, LEVEL II Diagnosis: Tinea corporis[ICD9: 110.5] Diagnosis: Exposure to scabies[ICD9: V01.89] Shahida Goldman MD, [facility] CPT- 4: 64747 03/07/2014 ([id number]) 20918 EST. PATIENT, LEVEL III Diagnosis: ESSENTIAL HYPERTENSION[SNOMED: 32953126] Diagnosis: OSTEOARTH NOS-UNSPEC[ICD9: 715.90] Diagnosis: Lumbago[ICD9: 724.2] Diagnosis: Cervicalgia[ICD9: 723.1] Shahida Goldman MD, [facility] CPT-4: 14801 11/21/2013 ([id number]) 26434 EST. PATIENT, LEVEL III Diagnosis: DEPRESSIVE DISORDER NEC[ICD9: 311] Diagnosis: Paronychia[ICD9: 681.9] Melba Goldman MD, [facility] CPT-4: 79336 09/24/2013 ([id number]) 17667 EST. PATIENT, LEVEL III Diagnosis: Paronychia[ICD9: 681.9] Diagnosis: Cellulitis[ICD9: 682.9] Melba Goldman MD, [facility] CPT-4: 40601 09/19/2013 ([id number]) 63106 EST. PATIENT, LEVEL III Diagnosis: Conjunctivitis[ICD9: 372.30] Diagnosis: Thrush[ICD9: 112.0] Shahida Goldman MD, [facility] CPT-4: 78423 08/05/2013 ([id number]) 03184 EST. PATIENT, LEVEL III Diagnosis: ACUTE MAXILLARY SINUSITIS[ICD9: 461.0] Diagnosis: COUGH[ICD9: 786.2] Diagnosis: Insomnia[ICD9: 780.52] Diagnosis: ESOPHAGEAL REFLUX[ICD9: 530.81] Melba Goldman MD, [facility] CPT-4: 51749 07/10/2013 ([id number]) Miscellaneous no charge Diagnosis: ESSENTIAL HYPERTENSION[SNOMED: 12488858] Melba Goldman MD, [facility] CPT-4: 50339 05/13/2013 ([id number]) 79307 EST. PATIENT, LEVEL IV Diagnosis: ESSENTIAL HYPERTENSION[SNOMED: 19768098] Diagnosis: HYPOTHYROIDISM[ICD9: 244.9] Diagnosis: OSTEOARTH NOS-UNSPEC[ICD9: 715.90] Melba Goldman MD, [facility] CPT- 4: 02484 05/07/2013 ([id number]) 32492 EST. PATIENT, LEVEL IV Diagnosis: Osteoarthritis[ICD9: 715.90] Diagnosis: Knee pain, bilateral[ICD9: 719.46] Diagnosis: Hip pain[ICD9: 719.45] Melba Goldman MD, [facility] CPT-4: 19833 12/03/2012 ([id number]) 03365 EST. PATIENT, LEVEL III Diagnosis: Thrush[ICD9: 112.0] Melba Goldman MD, [facility] CPT-4: 31101 09/24/2012 ([id number]) 05403 EST. PATIENT, LEVEL IV Diagnosis: ESSENTIAL HYPERTENSION[SNOMED: 53623428] Diagnosis: Thrush[ICD9: 112.0] Diagnosis: Sleep apnea[ICD9: 780.57] Melba Goldman MD, [facility] CPT-4: 63317 09/10/2012 ([id number]) 84811 EST. PATIENT, LEVEL IV Diagnosis: Esophageal reflux[ICD9: 530.81] Diagnosis: Hypothyroid[ICD9: 244.9] Diagnosis: JOINT PAIN-MULT JOINTS[ICD9: 719.49] Diagnosis: ALLERGIC RHINITIS[ICD9: 477.9] Melba Goldman MD, [facility] CPT-4: 97087 08/08/2012 ([id number]) 31263 EST. PATIENT, LEVEL IV Diagnosis: Urinary frequency[ICD9: 788.41] Diagnosis: EDEMA[ICD9: 782.3] Diagnosis: HYPOTHYROIDISM[ICD9: 244.9] Diagnosis: Fatigue[ICD9: 780.79] Melba Goldman MD, [facility] CPT-4: 43296 02/15/2012 ([id number]) 19248 EST. PATIENT, LEVEL IV Diagnosis: Abdominal pain[ICD9: 789.00] Diagnosis: Fatigue[ICD9: 780.79] Diagnosis: Nausea[ICD9: 787.02] Melba Goldman MD, [facility] CPT-4: 36633 11/10/2011 52192 EST. PATIENT, LEVEL IV Diagnosis: ESSENTIAL HYPERTENSION[SNOMED: 05499792] Diagnosis: DIARRHEA[ICD9: 787.91] Diagnosis: DEPRESSIVE DISORDER NEC[ICD9: 311] Diagnosis: Irritable bowel disease[ICD9: 564.1] Melba Goldman MD, [facility] CPT- 4: 75866 08/01/2011 14466 EST. PATIENT, LEVEL III Diagnosis: ACUTE SINUSITIS[ICD9: 461.9] Diagnosis: Cough[ICD9: 786.2] Shahida Goldman MD, [facility] CPT-4: 28478 07/14/2011 40912 EST. PATIENT, LEVEL IV Diagnosis: VACCIN FOR INFLUENZA[ICD9: V04.81] Diagnosis: ESSENTIAL HYPERTENSION[SNOMED: 63651918] Diagnosis: GENERALIZED ANXIETY DISEASE[ICD9: 300.02] Diagnosis: SLEEP DISTURBANCES[ICD9: 780.50] Shahida Goldman MD, [facility] CPT- 4: 34397 05/23/2011 06029 EST. PATIENT, LEVEL III Diagnosis: ACUTE SINUSITIS[ICD9: 461.9] Diagnosis: ALLERGIC RHINITIS[ICD9: 477.9] Diagnosis: Cough[ICD9: 786.2] Shahida Goldman MD, [facility] CPT-4: 22853 05/03/2011 21243 EST. PATIENT, LEVEL IV Diagnosis: ESSENTIAL HYPERTENSION[SNOMED: 35880459] Diagnosis: DEPRESSIVE DISORDER NEC[ICD9: 311] Diagnosis: Fatigue[ICD9: 780.79] Shahida Goldman MD, [facility] CPT-4: 76055 04/25/2011 Plan of Care Planned Activity Notes Codes Status Date Patient Education: Patient Medication Summary Completed 11/27/2018 [...] acute concerns. 11/13/2018 Appointment: Shahida Manzo WPtel: [address] [place], [place] [phone] (15 min) Moderate 11/13/2018 Patient Education: Patient [...] call for acute concerns. Hyperlipidemia-check fasting labs Jhrxknjtrrnwbz-cewuzpt-uddax labs 10/30/2018 Visit Plan: Hypertension - uncontrolled [...] call for acute concerns. Hyperlipidemia-check fasting labs Vtkqcetomnerhh-fnrhbxu-jamtx labs 10/30/2018 Appointment: Shahida Manzo WPtel: [facility] (30 min) Complex 10/30/2018 Patient Education: Patient Medication Summary Completed 10/30/2018 Visit Plan: Conjunctivitis - rx for eye drops/lube sent electronically to the patient's pharmacy. The patient has been instructed to cleanse affected eye with warm washcloth, then place medication into affected eye four times daily. 10/08/2018 Appointment: Shahida Manzo WPtel: [address] [place], [place] [id number] [place] [address] (30 min) Complex 10/08/2018 Patient Education: Patient Medication Summary Completed 10/08/2018 Appointment: Isabelle Orozco WPtel: [facility]5 [facility]66[facility] (15 min) Moderate 07/30/2018 Visit Plan: Anxiety [...] acute concerns. 07/16/2018 Appointment: Isabelle Orozco WPtel: [phone] [phone] (15 min) Moderate 07/16/2018 Patient [...] of over-medication. 07/10/2018 Appointment: Shahida Manzo WPtel: [facility]5 [phone] (15 min) Moderate 07/10/2018 Patient Education: Patient Medication Summary Completed 07/10/2018 Patient Education: Back Pain Completed 07/10/2018 Visit Plan: Sinusitis - Pt has acute infection - pain in face, maxillary region, Pt informed to use decongestant, RX given to patient, sinus rinses also recommended. Call if symptoms do not show improvement. 05/28/2018 Appointment: Shahida aMnzo WPtel: [facility] [place] [phone] (30 min) Complex 05/28/2018 Patient [...] acute concerns. 02/07/2018 Appointment: Isabelle Orozco WPtel: [address] [place], [place] [phone] (15 min) Moderate 02/07/2018 Patient Education: Patient [...] less fatigue 01/19/2018 Appointment: Shahida Manzo WPtel: [phone] [id number] (15 min) Moderate 01/19/2018 Patient Education: [...] care surrogate. 11/23/2017 Appointment: Isabelle Orozco WPtel: [facility]7 [facility] [facility] - Annual Wellness Visit 11/23/2017 Patient Education: [...] improvement. 09/12/2017 Appointment: Isabelle Orozco WPtel: [phone] [facility] (15 min) Moderate 09/12/2017 Patient [...] spray. 07/25/2017 Appointment: Isabelle Orozco WPtel: [phone] [facility] (30 min) Complex 07/25/2017 Patient Education: [...] available 06/27/2017 Appointment: Shahida Manzo WPtel: [phone] [phone] (15 min) Moderate 06/27/2017 Patient [...] not improving. 05/08/2017 Appointment: Shahida Manzo WPtel: [facility]2 [phone] (15 min) Moderate 05/08/2017 Patient Education: [...] show improvement. 03/14/2017 Appointment: Shahida Manzo WPtel: [facility]6 [phone] [place] (15 min) Moderate 03/14/2017 Patient Education: Patient Medication Summary Completed 03/14/2017 Appointment: Shahida Manzo WPtel: [facility]0 [phone] [place] (15 min) Moderate 02/21/2017 Visit [...] not improving. 02/20/2017 Appointment: [phone] (30 min) Complex 02/20/2017 Patient Education: Patient [...] use 02/06/2017 Appointment: Melba Goldman [facility]el: [phone] [facility] [place] (15 min) Moderate 02/06/2017 Patient Education: Patient [...] this patient. 12/05/2016 Appointment: Melba Goldman WPtel: [phone] [facility] Surgical Procedure 12/05/2016 Patient Education: Patient Medication Summary Completed 12/05/2016 Visit Plan: Sinusitis - Pt has acute infection - pain in face, maxillary region, Pt informed to use decongestant, RX given to patient, sinus rinses also recommended. Call if symptoms do not show improvement. Dysuria- culture urine 11/28/2016 Appointment: Shahida Manzo WPtel: [facility]7 [phone] (15 min) Moderate 11/28/2016 Patient [...] of control. 11/07/2016 Appointment: Isabel[facility] Orozco [facility]el[phone] [facility] [facility] - Annual Wellness Visit 11/07/2016 Patient [...] allergy spray. 08/15/2016 Appointment: Isabelle Orozco WPtel: [phone] [facility] (15 min) Moderate 08/15/2016 Patient Education: Patient [...] pain use. 06/07/2016 Appointment: Shahida Manzo WPtel: [facility]5 [phone] (10 min) Simple 06/07/2016 Patient [...] office today 03/14/2016 Appointment: Shahida Manzo WPtel: [phone] (15 min) Moderate 03/14/2016 Patient Education: Patient Medication Summary Completed 03/14/2016 Care Plan: COMPLETE CBC AUTOMATED LOINC : 19805-3 Pending 03/14/2016 Visit Plan: Cellulitis - The patient was instructed in appropriate wound care. The patient was instructed to use the antibiotic ointment as per RX. The patient is to call for any change in symptoms, increase in size of the lesion, increase in pain. 02/22/2016 Appointment: Isabelle Orozco [facility]Ptel: [phone] [facility] (15 min) Moderate 02/22/2016 Patient Education: Patient [...] pt to follow up with specialist at [address] - she needs to pursue treatment. Anxietly - medications unchanged. colonoscopy with dr. dai 11/24/2015 Appointment: Melba Goldman WPtel: [address] [place], [place] [address] (30 min) [facility] 11/24/2015 Patient Education: Patient Medication Summary Completed 11/24/2015 Patient Education: Obesity Completed 11/24/2015 Patient Education: Hypertension Completed 11/24/2015 Patient Education: .Cervicalgia Neck Pain Completed 11/24/2015 Care Plan: Referral Order SNOMED-CT : [id number] Ordered 11/24/2015 Visit Plan: Acute Migraine - [...] to monitor 06/11/2015 Appointment: Shahida Manzo WPtel: [address] [place], [place] [phone] (15 min) Moderate 06/11/2015 Patient Education: Patient [...] OFFICE Sleep apnea-patient needs new CPAP-will contact [facility] patient 03/19/2015 Visit Plan: Hypertension - [...] OFFICE Sleep apnea-patient needs new CPAP-[facility] contact [facility] Pt reports that she uses [...] OFFICE Sleep apnea-patient needs new CPAP-will contact [facility] patient Pt reports that she uses her [...] Patient Medication Summary Completed 01/07/2015 Patient Education: [facility] - Saving AutoInj - 18+ - Dynamic [...] areas dry Exposure to scabies-RX sent to [facility]. 03/07/2014 Appointment: Melba Goldman WPtel: [phone] [facility] [place] [place] rash 03/07/2014 Patient Education: Patient Medication [...] change in blood pressure readings at home. Aesbuxs-liwltngbyce-wslgfmwm duragesic patch-appt with Dr Ortiz for pain management 11/21/2013 Appointment: Shahida Manzo WPtel: [facility]5 [phone] Follow up 11/21/2013 Patient Education: Patient Medication Summary Completed 11/21/2013 Patient Education: Hypertension Completed 11/21/2013 Patient Education: .Cervicalgia Neck Pain Completed 11/21/2013 Appointment: Melba Goldman WPtel: [address] [place], [place] [phone] Other 11/19/2013 Appointment: Melba Goldman WPtel: [address] [place], [place] [phone] Follow up 11/06/2013 Appointment: Melba Goldman WPtel: [address] [place] [address] Lab Draw 10/15/2013 Patient Education: Patient Medication [...] AT BEDTIME 09/24/2013 Appointment: Shahida Manzo WPtel: [facility]1 [phone] Other 09/24/2013 Patient Education: Patient Medication Summary Completed 09/24/2013 Visit Plan: Paronychia/Cellulitis - continue with oral antibiotics as previously directed, return to clinic as previously directed, call for acute change in symptoms, worsening redness, warmth, discharge. 09/19/2013 Appointment: Melba Goldman WPtel: [phone] [facility] [place] [place] Other 09/19/2013 Patient Education: Patient Medication Summary Completed 09/19/2013 Visit Plan: Conjunctivitis - rx for eye drops/lube sent electronically to the patient's pharmacy. The patient has been instructed to cleanse affected eye with warm washcloth, then place medication into affected eye four times daily. Thrush-refill nystatin-call if symptoms do not resolve 08/05/2013 Appointment: Shahida Manzo [facility]Ptel: [phone] [phone] [place] Sick 08/05/2013 Patient Education: Patient Medication [...] improvement. 06/03/2013 Appointment: Melba Goldman WPtel: [phone] [facility] [place] Follow up 06/03/2013 Patient Education: Patient Medication Summary Completed 06/03/2013 Patient Education: Hypertension Completed 06/03/2013 Appointment: Melba Goldman WPtel: [phone] [facility] [place] Nurse Visit 05/13/2013 Patient Education: Patient Medication [...] control. 05/07/2013 Appointment: Melba Goldman WPtel: [phone] [facility] [place] [place] Follow up 05/07/2013 Patient Education: Patient Medication Summary Completed 05/07/2013 Patient Education: Hypertension Completed 05/07/2013 Patient Education: Patient Medication Summary Completed 04/30/2013 Patient Education: Hypertension Completed 04/30/2013 Visit Plan: Arthritis- occasionally uncontrolled symptoms- recommend pt to take antiinflammatory as directed for pain control. Use tylenol for break through pain symptoms. 12/03/2012 Appointment: Melba Goldman WPtel: [phone] [facility] [place] Follow up 12/03/2012 Patient Education: Patient Medication [...] resolve 09/24/2012 Appointment: Shahida Manzo WPtel: [phone] [phone] Sick 09/24/2012 Patient Education: Patient Medication Summary [...] with diflucan 09/10/2012 Appointment: Melba Goldman WPtel: [phone] [facility] Follow up 09/10/2012 Patient Education: Patient Medication [...] pain symptoms. 08/08/2012 Appointment: Shahida Manzo WPtel: [address] [place], [place] [phone] Follow up 08/08/2012 Patient Education: Patient Medication Summary Completed 08/08/2012 Patient Education: Patient Medication Summary Completed 08/07/2012 Patient Education: Hypertension Completed 08/07/2012 Appointment: Melba Goldman WPtel: [address] [place], [place] [address] Lab Draw 02/16/2012 Patient Education: Patient Medication [...] Needs labs. 02/15/2012 Appointment: Melba Goldman WPtel: [facility]9 [facility] Other 02/15/2012 Patient Education: Patient Medication Summary Completed 02/15/2012 Visit Plan: Abdominal pain - ultrasound tomorrow AM nothing to eat before the ultrasound from 11pm tonight bland diet. Nausea - worse with fatty foods, recommended low fat/bland diet, call if symptoms worsening. 11/10/2011 Appointment: Melba Goldman WPtel: [phone] [facility] Other 11/10/2011 Patient Education: Patient Medication Summary [...] the stools. 08/01/2011 Appointment: Melba Goldman WPtel: [facility]5 [facility]66[facility] Other 08/01/2011 Patient Education: Patient Medication Summary Completed 08/01/2011 Patient Education: High Blood Pressure: Essential Hypertension Completed 08/01/2011 Visit Plan: Sinusitis - Pt has acute infection - pain in face, maxillary region, Pt informed to use decongestant, RX given to patient, sinus rinses also recommended. Call if symptoms do not show improvement. Cough- tesdavid zurita 07/14/2011 Appointment: Shahida Manzo WPtel: [facility]1 [phone] [place] Other 07/14/2011 Patient Education: Patient [...] the office. 05/23/2011 Appointment: Shahida Manzo WPtel: [address] [place] [address] Other 05/23/2011 Patient Education: Patient Medication Summary [...] cough med 05/03/2011 Appointment: Shahida Manzo WPtel: [address] [place] [address] [place] Other 05/03/2011 Patient Education: Patient Medication [...] her symptoms. 04/25/2011 Appointment: Shahida Manzo WPtel: [phone] Other 04/25/2011 Patient Education: Patient Medication Summary [...] OFFICE Sleep apnea-patient needs new CPAP-will contact [facility] . Sinusitis - Pt has acute infection - pain in face, maxillary region, Pt informed to use decongestant, RX given to patient, sinus rinses also recommended. Call if symptoms do not show improvement. . Arthritis- occasionally uncontrolled symptoms- recommend pt to take antiinflammatory as directed for pain control. Use tylenol for break through pain symptoms. LOSARTAN 50MG DAILY MONITOR BLOOD PRESSURE AND [...] call for acute concerns. Hyperlipidemia-check fasting labs Powkbcskyprrdp-fxbbifi-sqmiq labs LOSARTAN 50MG DAILY MONITOR BLOOD PRESSURE [...] call for acute concerns. Hyperlipidemia-check fasting labs Jtlwcmhonrqbom-oypzxue-zehhn labs . Medicare Exam - today we discussed [...] OFFICE Sleep apnea-patient needs new CPAP-will contact [facility] Pt reports that she uses her [...] OFFICE Sleep apnea-patient needs new CPAP-will contact [facility] Pt reports that she uses her [...] if the symptoms are not improving. . Wound Instructions - Pt was instructed [...] been appropriately prescribed for this patient. . Sinusitis - Pt has acute infection [...] and understands the consequences of over-medication. . Wound Instructions - Pt was instructed [...] Call if symptoms do not show improvement. Add bystolic 5mg with the 10mg daily - come back in 1 week and call if blood pressure remains elevated . . Wound Instructions - Pt was instructed [...] bleeding. Patient verbalized understandig of plan. . Paronychia/Cellulitis - continue with oral antibiotics [...] if the symptoms are not improving. . Hypertension - well controlled - continue [...] areas dry Exposure to scabies-RX sent to [facility]. rocephin/kenalog . Sinusitis - Pt has [...] do not improve, or if any worse. Continue to monitor blood pressure and bring [...] the plan with the nurse practicioner. . HTN-improved today-no change in medications Tinea-start clotrimazole and diflucan Elevated ALT-check labs today to monitor . Hypertension - well controlled - continue with current medications, continue with no added salt diet. Pt has been encouraged to exercise daily. The pt has been advised to call the office if there are any acute concerns about change in blood pressure readings at home. Owapmqo-wfowusynqlq-rmairlze duragesic patch-appt with Dr Ortiz for pain [...] make appt if symptoms do not resolve ROCEPHIN 500 MG IM AUGMENTIN PO 875 MG DAILY X 10 DAYS PREDNISONE PO 40 MG DAILY X 5 DAYS REFILL HYDROCODONE URINE SAMPLE . Sinusitis - Pt has acute infection - pain in face, maxillary region, Pt informed to use decongestant, RX given to patient, sinus rinses also recommended. Call if symptoms do not show improvement. Dysuria-culture urine . Conjunctivitis - rx for eye drops/lube [...] renal function or other disease process. . Skin tears, Cellulitis - The patient [...] drainage, or any other acute concerns. . Abdominal pain - ultrasound tomorrow AM [...] tylenol for break through pain symptoms. . Anxiety - the patient has uncontrolled [...] sent to pharmacy per pt request. . Sinusitis - Pt has acute infection - pain in face, maxillary region, Pt informed to use decongestant, RX given to patient, sinus rinses also recommended. Call if symptoms do not show improvement. Cough-tessalon pearles
--- OUTSIDE RECORDS SUMMARY | 2019-03-08 14:56 | XMS REPORT | CCD ---
Author Author [facility] Address [address] [place] [address] Phone Care Team Providers Care [employer] Name Role Phone PP Unavailable CCM Unavailable Summary Purpose Interface Exchange Insurance Providers Payer name Policy type / Coverage type Covered libertarian ID Effective Begin Date Effective End Date [employer] Medicare Part B [id number] Unknown Family history Son Diagnosis Age At Onset Crohn's disease Unknown Brother Diagnosis Age At Onset Cardiovascular disease Unknown Mother Diagnosis Age At Onset Hypertension Unknown Father Diagnosis Age At Onset Cardiovascular disease Unknown Social History Social History Element Codes Description Effective Dates Marital status Unknown 04/22/2011 Number of children Unknown 3 1 son -Crohns 04/22/[address]: 271489038 Nonsmoker 04/22/2011 Allergies, Adverse Reactions, Alerts Substance [...] hydrocodone 10 mg-acetaminophen 325 mg tablet RxNorm: 338561 Tablet(s) PO TAKE ONE TO TWO TABLETS BY MOUTH EVERY 6 HOURS NEEDED FOR PAIN 11/13/2018 11/27/2018 Active losartan 100 mg tablet RxNorm: 884941 1 Tablet(s) PO daily 11/13/2018 05/11/2019 Active Synthroid 112 mcg tablet RxNorm: 422163 1 Tablet(s) PO daily 11/01/2018 04/29/2019 Active Brand name only! Dosage change! Synthroid 112 mcg tablet RxNorm: 844830 1 Tablet(s) PO daily 11/01/2018 10/31/2018 Inactive Brand name only! Dosage change! losartan 50 mg tablet RxNorm: 810989 1 Tablet(s) PO daily 10/30/2018 11/12/2018 Inactive Tamiflu 75 mg capsule RxNorm: 658963 1 Capsule(s) PO daily 10/30/2018 11/08/2018 Inactive Synthroid 100 mcg tablet RxNorm: 920806 1 Tablet(s) PO daily 10/30/2018 10/31/2018 Inactive Brand name only! Lexapro 20 mg tablet RxNorm: 504626 TAKE ONE AND ONE-HALF TABLET BY MOUTH DAILY 10/23/2018 10/17/2019 Active alprazolam 0.25 mg tablet RxNorm: 202668 1 Tablet(s) PO TID as needed 10/10/2018 01/07/2019 Active polymyxin B sulfate 10,000 unit-trimethoprim 1 mg/mL eye drops RxNorm: 713691 2 Drop(s) ophthalmic (eye) QID 10/08/2018 10/14/2018 Inactive hydrocodone 10 mg-acetaminophen 325 mg tablet RxNorm: 810294 Tablet(s) PO TAKE ONE TO TWO TABLETS BY MOUTH EVERY 6 HOURS NEEDED FOR PAIN 09/11/2018 09/25/2018 Inactive piroxicam 20 mg capsule RxNorm: 552663 TAKE ONE CAPSULE BY MOUTH DAILY 08/09/2018 01/05/2019 Active trazodone 50 mg tablet RxNorm: 153070 TAKE ONE AND ONE-HALF (1 1/2) TABLET BY MOUTH AT BEDTIME. MAY INCREASE TO 2 TABLETS AT BEDTIME NEEDED 08/02/2018 11/19/2018 Active Nexium 40 mg capsule,delayed release RxNorm: 340024 TAKE ONE CAPSULE BY MOUTH TWICE A DAY 07/23/2018 11/19/2018 Active Bystolic 5 mg tablet RxNorm: 615967 1 Tablet(s) PO daily to take with 10 mg daily to equal 15mg daily 07/17/2018 10/29/2018 Inactive alprazolam 0.25 mg tablet RxNorm: 339500 1 Tablet(s) PO TID as needed 07/16/2018 10/29/2018 Inactive hydrocodone 10 mg-acetaminophen 325 mg tablet RxNorm: 513149 Tablet(s) PO TAKE ONE TO TWO TABLETS BY MOUTH EVERY 6 HOURS NEEDED FOR PAIN 07/10/2018 07/24/2018 Inactive prednisone 20 mg tablet RxNorm: 357079 1 Tablet(s) PO BID 07/10/2018 07/14/2018 Inactive Phenergan with Codeine Syrup RxNorm: 5-10 Milliliter(s) PO Q6 PRN 06/28/2018 No Stop Date Active prednisone 20 mg tablet RxNorm: 864062 2 Tablet(s) PO daily 05/31/2018 06/04/2018 Inactive prednisone 20 mg tablet RxNorm: 723218 2 Tablet(s) PO daily 05/31/2018 05/30/2018 Inactive ceftriaxone 500 mg solution for injection RxNorm: 9497209 Inj 05/28/2018 05/28/2018 Inactive doxycycline hyclate 100 mg tablet RxNorm: 8953527 1 Tablet(s) PO BID 05/28/2018 06/06/2018 Inactive Kenalog 40 mg/mL suspension for injection RxNorm: 1273947 Milliliter(s) Inj 05/28/2018 05/28/2018 Inactive hydrocodone 10 mg-acetaminophen 325 mg tablet RxNorm: 257210 Tablet(s) PO TAKE ONE TO TWO TABLETS BY MOUTH EVERY 6 HOURS NEEDED FOR PAIN 05/09/2018 05/23/2018 Inactive alprazolam 0.25 mg tablet RxNorm: 421442 1 Tablet(s) PO daily as needed 04/25/2018 07/15/2018 Inactive Bystolic 10 mg tablet RxNorm: 445632 TAKE ONE TABLET BY MOUTH DAILY 04/16/2018 09/12/2018 Inactive hydrocodone 10 mg-acetaminophen 325 mg tablet RxNorm: 686645 Tablet(s) PO TAKE ONE TO TWO TABLETS BY MOUTH EVERY 6 HOURS NEEDED FOR PAIN 03/06/2018 03/20/2018 Inactive trazodone 50 mg tablet RxNorm: 202024 TAKE ONE AND ONE-HALF (1 1/2) TABLET BY MOUTH AT BEDTIME. MAY INCREASE TO 2 TABLETS AT BEDTIME NEEDED 02/23/2018 06/12/2018 Inactive mupirocin 2 % topical ointment RxNorm: 063688 1 TOP BID 02/09/2018 05/27/2018 Inactive Zofran 4 mg tablet RxNorm: 664041 1 Tablet(s) PO TID as needed 02/08/2018 No Stop Date Active Keflex 500 mg capsule RxNorm: 157896 1 Capsule(s) PO TID 02/07/2018 02/13/2018 Inactive alprazolam 0.25 mg tablet RxNorm: 469828 1 Tablet(s) PO daily as needed 01/24/2018 07/09/2018 Inactive hydrocodone 10 mg-acetaminophen 325 mg tablet RxNorm: 420390 Tablet(s) PO TAKE ONE TO TWO TABLETS BY MOUTH EVERY 6 HOURS NEEDED FOR PAIN 01/19/2018 02/02/2018 Inactive hydrochlorothiazide 25 mg tablet RxNorm: 289149 Tablet(s) TAKE ONE TABLET BY MOUTH DAILY 01/19/2018 01/19/2018 Inactive Kenalog 40 mg/mL suspension for injection RxNorm: 4346770 1 Milliliter(s) Inj 01/19/2018 01/19/2018 Inactive piroxicam 20 mg capsule RxNorm: 391360 1 Capsule(s) PO daily 01/19/2018 07/17/2018 Inactive D/C ORDER FOR HCTZ ceftriaxone 500 mg solution for injection RxNorm: 6189673 500 Milligram(s) Inj 01/19/2018 01/19/2018 Inactive Nexium 40 mg capsule,delayed release RxNorm: 548599 TAKE ONE CAPSULE BY MOUTH TWICE A DAY 01/18/2018 04/17/2018 Inactive Nexium 40 mg capsule,delayed release RxNorm: 721497 TAKE ONE CAPSULE BY MOUTH TWICE A DAY 01/15/2018 04/14/2018 Inactive ciprofloxacin 0.3 % eye drops RxNorm: 962838 2 Drop(s) ophthalmic (eye) Q2H while awake x 2 days, then Q4H x 5 days 11/23/2017 05/27/2018 Inactive Keflex 500 mg capsule RxNorm: 651912 1 Capsule(s) PO TID 11/23/2017 11/29/2017 Inactive hydrocodone 10 mg-acetaminophen 325 mg tablet RxNorm: 442082 Tablet(s) PO TAKE ONE TO TWO TABLETS BY MOUTH EVERY 6 HOURS NEEDED FOR PAIN 10/30/2017 11/13/2017 Inactive Augmentin 500 mg-125 mg tablet RxNorm: 388933 1 Tablet(s) PO TID 10/27/2017 11/05/2017 Inactive alprazolam 0.25 mg tablet RxNorm: 370072 1 Tablet(s) PO daily as needed 10/26/2017 04/24/2018 Inactive trazodone 50 mg tablet RxNorm: 565342 TAKE ONE AND ONE-HALF (1 1/2) TABLET BY MOUTH AT BEDTIME. MAY INCREASE TO 2 TABLETS AT BEDTIME NEEDED 09/25/2017 02/03/2018 Inactive Lexapro 20 mg tablet RxNorm: 802659 TAKE ONE AND ONE-HALF TABLET BY MOUTH DAILY 09/15/2017 09/09/2018 Inactive Flagyl 500 mg tablet RxNorm: 746095 1 Tablet(s) PO TID 09/12/2017 09/21/2017 Inactive promethazine 25 mg tablet RxNorm: 678554 1 Tablet(s) PO TID as needed nausea and vomitting THIS WILL MAKE YOU SLEEPY 09/12/2017 11/08/2017 Inactive Keflex 500 mg capsule RxNorm: 290758 1 Capsule(s) PO QID 08/25/2017 08/31/2017 Inactive [SAVINGS FOR UNINSURED PATIENTS -- BIN:[id number], PCN: [id number], Group: [id number], ID# [id number], Process claim through [employer], for questions: . THIS IS NOT INSURANCE.] alprazolam 0.25 mg tablet RxNorm: 957540 1 Tablet(s) PO daily as needed 07/31/2017 04/24/2018 Inactive prednisone 20 mg tablet RxNorm: 600862 2 Tablet(s) PO daily 07/25/2017 07/29/2017 Inactive Augmentin 500 mg-125 mg tablet RxNorm: 638086 1 Tablet(s) PO TID 07/25/2017 08/03/2017 Inactive trazodone 50 mg tablet RxNorm: 314140 TAKE ONE AND ONE-HALF (1 1/2) TABLET BY MOUTH AT BEDTIME. MAY INCREASE TO 2 TABLETS AT BEDTIME NEEDED 06/30/2017 09/03/2017 Inactive Bystolic 10 mg tablet RxNorm: 366648 TAKE ONE TABLET BY MOUTH DAILY 06/30/2017 2017 Inactive hydrochlorothiazide 25 mg tablet RxNorm: 477220 TAKE ONE TABLET BY MOUTH DAILY 06/30/2017 01/18/2018 Inactive Flagyl 500 mg tablet RxNorm: 553348 1 Tablet(s) PO TID 06/27/2017 07/03/2017 Inactive Phenergan with Codeine Syrup RxNorm: 5-10 Milliliter(s) PO Q6 PRN 06/27/2017 11/15/2017 Inactive Levaquin 500 mg tablet RxNorm: 961376 1 Tablet(s) PO daily 06/27/2017 07/03/2017 Inactive Kenalog 40 mg/mL suspension for injection RxNorm: 5505255 1 Milliliter(s) Inj 06/27/2017 06/27/2017 Inactive Nexium 40 mg capsule,delayed release RxNorm: 826096 1 Capsule(s) PO BID TAKE ONE CAPSULE BY MOUTH BID 05/22/2017 09/18/2017 Inactive Nexium 40 mg capsule,delayed release RxNorm: 799823 1 Capsule(s) PO BID TAKE ONE CAPSULE BY MOUTH BID 05/22/2017 05/21/2017 Inactive hydrocodone 10 mg-acetaminophen 325 mg tablet RxNorm: 164454 Tablet(s) PO TAKE ONE TO TWO TABLETS BY MOUTH EVERY 6 HOURS NEEDED FOR PAIN 05/17/2017 06/15/2017 Inactive Nexium 40 mg capsule,delayed release RxNorm: 884951 Capsule(s) TAKE ONE CAPSULE BY MOUTH BID 05/17/2017 05/21/2017 Inactive alprazolam 0.25 mg tablet RxNorm: 346924 1 Tablet(s) PO daily as needed 05/03/2017 07/01/2017 Inactive Levaquin 500 mg tablet RxNorm: 616463 1 Tablet(s) PO daily 04/20/2017 04/26/2017 Inactive clotrimazole 1 % topical cream RxNorm: 726858 1 Application TOP BID 04/20/2017 11/07/2017 Inactive Kenalog 40 mg/mL suspension for injection RxNorm: 1448309 Milliliter(s) Inj 04/20/2017 04/20/2017 Inactive nystatin 100,000 unit/gram topical powder RxNorm: 182735 1 Gram(s) APPLY TOPICALLY TWO TIMES A DAY 04/10/2017 07/08/2017 Inactive trazodone 50 mg tablet RxNorm: 323473 TAKE ONE AND ONE-HALF (1 1/2) TABLET BY MOUTH AT BEDTIME. MAY INCREASE TO 2 TABLETS AT BEDTIME NEEDED 03/28/2017 06/23/2017 Inactive Augmentin 875 mg-125 mg tablet RxNorm: 608869 1 Tablet(s) PO BID 03/14/2017 03/20/2017 Inactive Kenalog 40 mg/mL suspension for injection RxNorm: 7079892 1 Milliliter(s) Inj 03/14/2017 03/14/2017 Inactive Lexapro 20 mg tablet RxNorm: 075766 1.5 Tablet(s) PO daily 03/08/2017 03/07/2017 Inactive Lexapro 20 mg tablet RxNorm: 974045 1.5 Tablet(s) PO daily 03/08/2017 07/05/2017 Inactive alprazolam 0.25 mg tablet RxNorm: 953803 1 Tablet(s) PO daily as needed 02/23/2017 04/23/2017 Inactive (Response to an electronic controlled substance refill request - RxReferenceNumber: [id number]) Flagyl 500 mg tablet RxNorm: 863180 1 Tablet(s) PO TID 02/20/2017 03/01/2017 Inactive promethazine 25 mg tablet RxNorm: 880910 1 Tablet(s) PO TID as needed nausea 02/20/2017 03/01/2017 Inactive Cipro 500 mg tablet RxNorm: 974727 1 Tablet(s) PO BID 02/20/2017 03/01/2017 Inactive Flagyl 500 mg tablet RxNorm: 658727 1 Tablet(s) PO TID 02/09/2017 02/15/2017 Inactive Trintellix 10 mg tablet RxNorm: 0428367 1 Tablet(s) PO QAM 02/06/2017 03/07/2017 Inactive Efudex 5 % topical cream RxNorm: 948048 1 Application TOP BID use on skin spot on nose 02/06/2017 02/15/2017 Inactive Bystolic 10 mg tablet RxNorm: 571372 TAKE ONE TABLET BY MOUTH DAILY 02/03/2017 06/02/2017 Inactive Imitrex 50 mg tablet RxNorm: 088582 TAKE ONE TABLET BY MOUTH EVERY 8 HOURS NEEDED MAY REPEAT IN 1 HOUR OF INITIAL DOSE. DISCONTINUE FIORICET 12/22/2016 02/19/2017 Inactive Nexium 40 mg capsule,delayed release RxNorm: 532449 TAKE ONE CAPSULE BY MOUTH EVERY DAY 12/21/2016 05/16/2017 Inactive Lexapro 20 mg tablet RxNorm: 541260 Tablet(s) TAKE ONE TABLET BY MOUTH DAILY 12/05/2016 02/05/2017 Inactive Augmentin 875 mg-125 mg tablet RxNorm: 906760 1 Tablet(s) PO BID 11/28/2016 12/04/2016 Inactive ceftriaxone 500 mg solution for injection RxNorm: 4664171 1 Milliliter(s) Inj 11/28/2016 11/28/2016 Inactive hydrocodone 10 mg-acetaminophen 325 mg tablet RxNorm: 796645 Tablet(s) PO TAKE ONE TO TWO TABLETS BY MOUTH EVERY 6 HOURS NEEDED FOR PAIN 11/28/2016 05/16/2017 Inactive (Appended: Controlled substance eRx refill - RxReferenceNumber: [id number]) prednisone 20 mg tablet RxNorm: 499431 2 Tablet(s) PO daily 11/28/2016 12/02/2016 Inactive trazodone 50 mg tablet RxNorm: 649483 Tablet(s) TAKE 1 AND 1/2 TABLETS EVERY NIGHT AT BEDTIME , MAY INCREASE TO 2 TABLETS AT BEDTIME NEEDED 11/21/2016 11/20/2016 Inactive Synthroid 100 mcg tablet RxNorm: 295359 1 Tablet(s) PO daily 11/21/2016 05/19/2017 Inactive Brand name only! trazodone 50 mg tablet RxNorm: 828125 TAKE 1 AND 1/2 TABLETS EVERY NIGHT AT BEDTIME , MAY INCREASE TO 2 TABLETS AT BEDTIME NEEDED 11/21/2016 08/01/2018 Inactive Synthroid 100 mcg tablet RxNorm: 182045 1 Tablet(s) PO daily TAKE ONE TABLET BY MOUTH DAILY 11/08/2016 11/20/2016 Inactive ceftriaxone 500 mg solution for injection RxNorm: 9695713 Inj 11/07/2016 11/07/2016 Inactive Kenalog 40 mg/mL suspension for injection RxNorm: 8046787 Milliliter(s) Inj 11/07/2016 11/07/2016 Inactive Xanax 0.25 mg tablet RxNorm: 054532 1 Tablet(s) PO daily as needed 10/31/2016 05/02/2017 Inactive alprazolam 0.25 mg tablet RxNorm: 844262 1 Tablet(s) PO daily as needed 10/21/2016 12/18/2016 Inactive (Response to an electronic controlled substance refill request - RxReferenceNumber: [id number]) hydrochlorothiazide 25 mg tablet RxNorm: 140787 TAKE ONE TABLET BY MOUTH DAILY 10/11/2016 04/08/2017 Inactive Xanax 0.25 mg tablet RxNorm: 052056 1 Tablet(s) PO daily as needed 08/23/2016 10/19/2016 Inactive Flonase Allergy Relief 50 mcg/actuation nasal spray,suspension RxNorm: 3680721 1 [place] NASAL daily 08/15/2016 No Stop Date Active amoxicillin 500 mg capsule RxNorm: 635721 1 Capsule(s) PO TID 08/15/2016 08/24/2016 Inactive Bystolic 10 mg tablet RxNorm: 312695 TAKE ONE TABLET BY MOUTH DAILY 08/01/2016 12/28/2016 Inactive trazodone 50 mg tablet RxNorm: 952555 TAKE 1 AND 1/2 TABLETS EVERY NIGHT AT BEDTIME , MAY INCREASE TO 2 TABLETS AT BEDTIME NEEDED 07/25/2016 11/11/2016 Inactive alprazolam 0.25 mg tablet RxNorm: 449888 1 Tablet(s) PO daily as needed 07/25/2016 08/22/2016 Inactive (Response to an electronic controlled substance refill request - RxReferenceNumber: [id number]) Imitrex 50 mg tablet RxNorm: 864380 1 Tablet(s) PO Q8 as needed may repeat x1 dose in 1 hour of inital dose. 07/13/2016 No Stop Date Active Lexapro 20 mg tablet RxNorm: 789703 TAKE 1/2 TABLET BY MOUTH DAILY FOR 10 DAYS, THEN TAKE ONE TABLET BY MOUTH DAILY 06/27/2016 11/23/2016 Inactive Synthroid 100 mcg tablet RxNorm: 116090 TAKE ONE TABLET BY MOUTH DAILY 06/20/2016 11/07/2016 Inactive Augmentin 500 mg-125 mg tablet RxNorm: 193210 1 Tablet(s) PO TID 06/07/2016 06/13/2016 Inactive hydrocodone 10 mg-acetaminophen 325 mg tablet RxNorm: 545150 Tablet(s) PO TAKE ONE TO TWO TABLETS BY MOUTH EVERY 6 HOURS NEEDED FOR PAIN 06/07/2016 11/27/2016 Inactive (Appended: Controlled substance eRx refill - RxReferenceNumber: [id number]) hydrochlorothiazide 25 mg tablet RxNorm: 128339 TAKE ONE TABLET BY MOUTH DAILY 03/14/2016 09/09/2016 Inactive Edarbi 40 mg tablet RxNorm: 4846247 1 Tablet(s) PO daily 03/14/2016 06/06/2016 Inactive trazodone 50 mg tablet RxNorm: 606248 Tablet(s) TAKE 1 AND 1/2 TABLET AT BEDTIME. MAY INCREASE TO 2 TABLETS IF NECESSARY 02/25/2016 07/05/2016 Inactive Imitrex 50 mg tablet RxNorm: 473731 1 Tablet(s) PO Q8 as needed may repeat x1 dose in 1 hour of inital dose. 02/25/2016 07/12/2016 Inactive dc fioricet Xanax 0.25 mg tablet RxNorm: 069451 1 Tablet(s) PO daily as needed 02/24/2016 07/21/2016 Inactive mupirocin 2 % topical ointment RxNorm: 191994 1 TOP BID 02/22/2016 11/08/2017 Inactive Bactrim DS 800 mg-160 mg tablet RxNorm: 894334 1 Tablet(s) PO BID 02/22/2016 03/02/2016 Inactive Fioricet 50 mg-325 mg-40 mg tablet RxNorm: 684443 Tablet(s) TAKE ONE TABLET BY MOUTH EVERY 4 HOURS NEEDED FOR headache 02/12/2016 02/24/2016 Inactive (Response to an electronic controlled substance refill request - RxReferenceNumber: [id number]) Fioricet 50 mg-325 mg-40 mg tablet RxNorm: 386632 Tablet(s) TAKE ONE TABLET BY MOUTH EVERY 4 HOURS NEEDED FOR headache 02/12/2016 02/11/2016 Inactive (Response to an electronic controlled substance refill request - RxReferenceNumber: [id number]) Nexium 40 mg capsule,delayed release RxNorm: 504541 TAKE ONE CAPSULE BY MOUTH EVERY DAY 02/01/2016 10/27/2016 Inactive Bystolic 10 mg tablet RxNorm: 566705 Tablet(s) TAKE ONE TABLET BY MOUTH DAILY 01/06/2016 07/03/2016 Inactive Xanax 0.25 mg tablet RxNorm: 909938 1 Tablet(s) PO daily as needed 12/28/2015 02/23/2016 Inactive Levaquin 500 mg tablet RxNorm: 922282 1 Tablet(s) PO daily take a probiotic daily 12/14/2015 02/11/2016 Inactive Levaquin 500 mg tablet RxNorm: 691990 1 Tablet(s) PO daily take a probiotic daily 12/14/2015 12/13/2015 Inactive prednisone 20 mg tablet RxNorm: 164370 1 Tablet(s) PO BID 12/07/2015 12/13/2015 Inactive Augmentin 875 mg-125 mg tablet RxNorm: 584755 1 Tablet(s) PO BID 12/07/2015 12/13/2015 Inactive ceftriaxone 500 mg solution for injection RxNorm: 9739727 Inj 12/07/2015 12/07/2015 Inactive Phenergan with Codeine Syrup RxNorm: 5-10 Milliliter(s) PO Q6 PRN 12/07/2015 06/26/2017 Inactive alprazolam 0.25 mg tablet RxNorm: 528356 1 Tablet(s) PO daily as needed 11/27/2015 12/25/2015 Inactive (Response to an electronic controlled substance refill request - RxReferenceNumber: [id number]) trazodone 50 mg tablet RxNorm: 694818 TAKE 1 AND 1/2 TABLET AT BEDTIME FOR 2 WEEKS, MAY INCREASE TO 2 TABLETS IF NECESSARY AFTER THAT 11/26/2015 02/24/2016 Inactive ceftriaxone 500 mg solution for injection RxNorm: 8089360 Milliliter(s) Inj 11/24/2015 11/24/2015 Inactive prednisone 10 mg tablet RxNorm: 530577 3 Tablet(s) PO daily 11/24/2015 11/28/2015 Inactive cefdinir 300 mg capsule RxNorm: 644723 1 Capsule(s) PO BID 11/24/2015 11/30/2015 Inactive Kenalog 40 mg/mL suspension for injection RxNorm: 6709117 1 Milliliter(s) Inj 11/24/2015 11/24/2015 Inactive Lexapro 20 mg tablet RxNorm: 207784 TAKE 1/2 TABLET BY MOUTH DAILY FOR 10 DAYS, THEN TAKE ONE TABLET BY MOUTH DAILY 11/23/2015 05/20/2016 Inactive Lipitor 10 mg tablet RxNorm: 096637 Tablet(s) TAKE ONE TABLET BY MOUTH EVERY DAY 10/26/2015 11/06/2016 Inactive Norvasc 10 mg tablet RxNorm: 613691 Tablet(s) PO TAKE ONE TABLET BY MOUTH EVERY DAY 10/26/2015 01/18/2018 Inactive hydrochlorothiazide 25 mg tablet RxNorm: 451232 TAKE ONE TABLET BY MOUTH DAILY 10/20/2015 01/17/2016 Inactive promethazine 25 mg/mL injection solution RxNorm: 714586 Milliliter(s) Inj 08/27/2015 08/27/2015 Inactive ketorolac 60 mg/2 mL intramuscular solution RxNorm: 693331 Milliliter(s) IM 08/27/2015 08/27/2015 Inactive alprazolam 0.25 mg tablet RxNorm: 768820 1 Tablet(s) PO daily as needed 08/27/2015 10/25/2017 Inactive (Response to an electronic controlled substance refill request - RxReferenceNumber: [id number]) Lexapro 20 mg tablet RxNorm: 668158 TAKE 1/2 TABLET BY MOUTH DAILY FOR 10 DAYS, THEN TAKE ONE TABLET BY MOUTH DAILY 08/13/2015 11/10/2015 Inactive Flonase 50 mcg/actuation nasal spray,suspension RxNorm: 631130 PLACE 1 SPRAY IN EACH NOSTRIL DAILY 08/13/2015 02/08/2016 Inactive Augmentin 500 mg-125 mg tablet RxNorm: 190673 1 Tablet(s) PO TID 08/10/2015 08/16/2015 Inactive Kenalog 40 mg/mL suspension for injection RxNorm: 1582343 Milliliter(s) Inj 08/10/2015 08/10/2015 Inactive ceftriaxone 500 mg solution for injection RxNorm: 0234555 Inj 08/10/2015 08/10/2015 Inactive nystatin 100,000 unit/mL oral suspension RxNorm: 181818 4 Milliliter(s) PO QID 08/10/2015 08/16/2015 Inactive trazodone 50 mg tablet RxNorm: 363279 TAKE 1 AND 1/2 TABLET AT BEDTIME FOR 2 WEEKS, MAY INCREASE TO 2 TABLETS IF NECESSARY AFTER THAT 07/31/2015 11/25/2015 Inactive ceftriaxone 500 mg solution for injection RxNorm: 1831341 1 Milliliter(s) Inj 07/28/2015 07/28/2015 Inactive Bactrim DS 800 mg-160 mg tablet RxNorm: 331420 1 Tablet(s) PO BID 07/28/2015 08/06/2015 Inactive Bactroban 2 % topical ointment RxNorm: 368658 1 Application TOP BID 07/28/2015 08/06/2015 Inactive Diflucan 150 mg tablet RxNorm: 645908 1 Tablet(s) PO daily 06/11/2015 06/17/2015 Inactive clotrimazole 1 % topical cream RxNorm: 521356 1 Application TOP BID 06/11/2015 07/10/2015 Inactive Bystolic 10 mg tablet RxNorm: 127121 TAKE ONE TABLET BY MOUTH DAILY 06/08/2015 12/04/2015 Inactive alprazolam 0.25 mg tablet RxNorm: 575694 1 Tablet(s) PO daily as needed 06/01/2015 08/25/2015 Inactive (Response to an electronic controlled substance refill request - RxReferenceNumber: [id number]) Fioricet 50 mg-325 mg-40 mg tablet RxNorm: 892000 Tablet(s) TAKE ONE TABLET BY MOUTH EVERY 4 HOURS NEEDED FOR headache 05/28/2015 06/08/2015 Inactive (Response to an electronic controlled substance refill request - RxReferenceNumber: [id number]) trazodone 50 mg tablet RxNorm: 516235 TAKE 1 AND 1/2 TABLET AT BEDTIME FOR 2 WEEKS, MAY INCREASE TO 2 TABLETS IF NECESSARY AFTER THAT 05/25/2015 08/22/2015 Inactive trazodone 50 mg tablet RxNorm: 210539 TAKE 1 AND 1/2 TABLET AT BEDTIME FOR 2 WEEKS, MAY INCREASE TO 2 TABLETS IF NECESSARY AFTER THAT 05/25/2015 05/24/2015 Inactive Synthroid 100 mcg tablet RxNorm: 906814 TAKE ONE TABLET BY MOUTH DAILY 04/23/2015 01/17/2016 Inactive Lipitor 10 mg tablet RxNorm: 751672 TAKE ONE TABLET BY MOUTH EVERY DAY 04/23/2015 10/25/2015 Inactive Kenalog 40 mg/mL suspension for injection RxNorm: 4232233 Milliliter(s) Inj 03/19/2015 03/19/2015 Inactive Lexapro 20 mg tablet RxNorm: 459917 1 Tablet(s) PO daily 03/19/2015 07/16/2015 Inactive 1/2 tab daily x 10 days then 1 tab daily hydrocodone 10 mg-acetaminophen 325 mg tablet RxNorm: 612208 Tablet(s) PO TAKE ONE TO TWO TABLETS BY MOUTH EVERY 6 HOURS NEEDED FOR PAIN 03/19/2015 06/06/2016 Inactive (Appended: Controlled substance eRx refill - RxReferenceNumber: [id number]) Carafate 1 gram tablet RxNorm: 752412 1 Tablet(s) PO AC & HS 03/19/2015 06/16/2015 Inactive dissolve in water and take as a slurry hydrochlorothiazide 25 mg tablet RxNorm: 374117 1 Tablet(s) PO daily 03/12/2015 09/07/2015 Inactive Nexium 40 mg capsule,delayed release RxNorm: 712820 TAKE ONE CAPSULE BY MOUTH EVERY DAY 02/26/2015 12/22/2015 Inactive Cymbalta 60 mg capsule,delayed release RxNorm: 881667 TAKE ONE CAPSULE BY MOUTH TWICE A DAY 02/23/2015 03/18/2015 Inactive alprazolam 0.25 mg tablet RxNorm: 168807 1 Tablet(s) PO daily as needed 02/11/2015 05/10/2015 Inactive (Response to an electronic controlled substance refill request - RxReferenceNumber: [id number]) trazodone 50 mg tablet RxNorm: 994818 TAKE 1 AND 1/2 TABLET AT BEDTIME FOR 2 WEEKS, MAY INCREASE TO 2 TABLETS IF NECESSARY AFTER THAT 01/27/2015 05/24/2015 Inactive Augmentin 500 mg-125 mg tablet RxNorm: 128612 1 Tablet(s) PO TID 01/07/2015 01/13/2015 Inactive gentamicin 0.3 % eye drops RxNorm: 917192 3 Drop(s) OPH QID 01/07/2015 01/13/2015 Inactive [AttnRPh: Saving apply/adjudicate RxGRP:[id number] RxBIN:[id number] RxPCN: ID#:[id number]] scopolamine 1.5 mg transdermal 72 hour patch RxNorm: 723181 1 Patch TD q72 hours 01/07/2015 11/23/2015 Inactive Synthroid 100 mcg tablet RxNorm: 633008 TAKE ONE TABLET BY MOUTH ONCE A DAY 01/06/2015 04/22/2015 Inactive nystatin 100,000 unit/gram topical powder RxNorm: 767598 APPLY TOPICALLY TWO TIMES A DAY 12/18/2014 03/17/2015 Inactive alprazolam 0.25 mg tablet RxNorm: 230056 TAKE ONE TABLET BY MOUTH DAILY NEEDED 10/30/2014 11/28/2014 Inactive (Response to an electronic controlled substance refill request - RxReferenceNumber: [id number]) alprazolam 0.25 mg tablet RxNorm: 186716 Tablet(s) TAKE ONE TABLET BY MOUTH DAILY 10/30/2014 10/29/2014 Inactive (Response to an electronic controlled substance refill request - RxReferenceNumber: [id number]) Lipitor 10 mg tablet RxNorm: 430191 TAKE ONE TABLET BY MOUTH EVERY DAY 10/30/2014 02/26/2015 Inactive alprazolam 0.25 mg tablet RxNorm: 177552 TAKE ONE TABLET BY MOUTH DAILY 10/07/2014 10/29/2014 Inactive (Response to an electronic controlled substance refill request - RxReferenceNumber: [id number]) alprazolam 0.25 mg tablet RxNorm: 655270 TAKE ONE TABLET BY MOUTH DAILY 10/06/2014 10/07/2014 Inactive (Response to an electronic controlled substance refill request - RxReferenceNumber: [id number]) alprazolam 0.25 mg tablet RxNorm: 720960 Tablet(s) TAKE ONE TABLET BY MOUTH EVERY DAY NEEDED 09/30/2014 10/06/2014 Inactive (Response to an electronic controlled substance refill request - RxReferenceNumber: [id number]) Fioricet 50 mg-325 mg-40 mg tablet RxNorm: 370131 Tablet(s) TAKE ONE TABLET BY MOUTH EVERY 4 HOURS NEEDED FOR headache 09/29/2014 10/12/2014 Inactive (Response to an electronic controlled substance refill request - RxReferenceNumber: [id number]) Bystolic 10 mg tablet RxNorm: 564379 1 Tablet(s) PO daily TAKE ONE TABLET BY MOUTH EVERY DAY 09/29/2014 04/26/2015 Inactive Bystolic 5 mg tablet RxNorm: 756295 TAKE 1 AND 1/2 TABLETS ONCE DAILY 09/24/2014 09/23/2014 Inactive Bystolic 5 mg tablet RxNorm: 238337 Tablet(s) TAKE 1 AND 1/2 TABLETS ONCE DAILY 09/24/2014 09/18/2015 Inactive gentamicin 0.3 % eye drops RxNorm: 917566 3 Drop(s) OPH QID 09/23/2014 09/29/2014 Inactive trazodone 50 mg tablet RxNorm: 707125 TAKE 1 AND 1/2 TABLET AT BEDTIME FOR 2 WEEKS, MAY INCREASE TO 2 TABLETS IF NECESSARY AFTER THAT 09/22/2014 01/26/2015 Inactive Fioricet 50 mg-325 mg-40 mg tablet RxNorm: 034601 TAKE ONE TABLET BY MOUTH EVERY 4 HOURS NEEDED FOR PAIN 09/17/2014 09/28/2014 Inactive (Response to an electronic controlled substance refill request - RxReferenceNumber: [id number]) Duragesic 50 mcg/hr transdermal patch RxNorm: 377328 1 TD q72 hours 08/07/2014 01/06/2015 Inactive [SAVINGS FOR UNINSURED PATIENTS -- BIN:[id number], PCN: ASPROD1, Group: [id number], ID# [id number], Process claim through [employer], for questions: . THIS IS NOT INSURANCE.] alprazolam 0.25 mg tablet RxNorm: 697334 TAKE ONE TABLET BY MOUTH EVERY DAY NEEDED 07/31/2014 08/29/2014 Inactive (Response to an electronic controlled substance refill request - RxReferenceNumber: [id number]) alprazolam 0.25 mg tablet RxNorm: 960429 1 Tablet(s) PO daily as needed TAKE ONE TABLET BY MOUTH EVERY DAY NEEDED 07/30/2014 08/01/2014 Inactive (Response to an electronic controlled substance refill request - RxReferenceNumber: [id number]) Diflucan 150 mg tablet RxNorm: 354738 1 Tablet(s) PO daily 06/25/2014 07/01/2014 Inactive [SAVINGS FOR UNINSURED PATIENTS -- BIN:[id number], PCN: ASPROD1, Group: [id number], ID# [id number], Process claim through [employer], for questions: . THIS IS NOT INSURANCE.] Kenalog 40 mg/mL suspension for injection RxNorm: 4347014 Milliliter(s) Inj 06/23/2014 06/23/2014 Inactive [SAVINGS FOR UNINSURED PATIENTS -- BIN:677048, PCN: ASPROD1, Group: [id number], ID# [id number], Process claim through [employer], for questions: . THIS IS NOT INSURANCE.] ceftriaxone 500 mg solution for injection RxNorm: 235679 Inj 06/23/2014 06/23/2014 Inactive [SAVINGS FOR UNINSURED PATIENTS -- BIN:475937, PCN: ASPROD1, Group: [id number], ID# [id number], Process claim through [employer], for questions: . THIS IS NOT INSURANCE.] Levaquin 500 mg tablet RxNorm: 961813 1 Tablet(s) PO daily 06/23/2014 07/13/2014 Inactive [SAVINGS FOR UNINSURED PATIENTS -- BIN:144839, PCN: ASPROD1, Group: [id number], ID# [id number], Process claim through [employer], for questions: . THIS IS NOT INSURANCE.] Duragesic 50 mcg/hr transdermal patch RxNorm: 710194 1 TD q72 hours 06/05/2014 08/06/2014 Inactive [SAVINGS FOR UNINSURED PATIENTS -- BIN:391379, PCN: ASPROD1, Group: [id number], ID# [id number], Process claim through [employer], for questions: . THIS IS NOT INSURANCE.] alprazolam 0.25 mg tablet RxNorm: 964302 1 Tablet(s) PO daily as needed TAKE ONE TABLET BY MOUTH EVERY DAY NEEDED 06/02/2014 07/29/2014 Inactive (Response to an electronic controlled substance refill request - RxReferenceNumber: [id number]) nystatin 100,000 unit/gram topical powder RxNorm: 920388 APPLY TO AFFECTED AREA(S) TWO TIMES A DAY 05/01/2014 06/14/2014 Inactive hydrochlorothiazide 25 mg tablet RxNorm: 278046 TAKE ONE TABLET BY MOUTH EVERY DAY MUST CALL MD FOR APPOINTMENT 04/24/2014 10/20/2014 Inactive alprazolam 0.25 mg tablet RxNorm: 891360 Tablet(s) TAKE ONE TABLET BY MOUTH EVERY DAY NEEDED 04/16/2014 06/02/2014 Inactive (Response to an electronic controlled substance refill request - RxReferenceNumber: [id number]) alprazolam 0.25 mg tablet RxNorm: 177430 TAKE ONE TABLET BY MOUTH EVERY DAY NEEDED 04/16/2014 05/15/2014 Inactive (Response to an electronic controlled substance refill request - RxReferenceNumber: [id number]) alprazolam 0.25 mg tablet RxNorm: 068012 TAKE ONE TABLET BY MOUTH EVERY DAY NEEDED 04/16/2014 05/15/2014 Inactive (Response to an electronic controlled substance refill request - RxReferenceNumber: [id number]) alprazolam 0.25 mg tablet RxNorm: 746922 TAKE ONE TABLET BY MOUTH EVERY DAY NEEDED 04/14/2014 04/16/2014 Inactive (Response to an electronic controlled substance refill request - RxReferenceNumber: [id number]) Lipitor 10 mg tablet RxNorm: 880620 TAKE ONE TABLET BY MOUTH EVERY DAY 04/14/2014 09/10/2014 Inactive alprazolam 0.25 mg tablet RxNorm: 317539 TAKE ONE TABLET BY MOUTH EVERY DAY NEEDED 04/14/2014 04/14/2014 Inactive (Response to an electronic controlled substance refill request - RxReferenceNumber: [id number]) alprazolam 0.25 mg tablet RxNorm: 059050 TAKE ONE TABLET BY MOUTH EVERY DAY NEEDED 04/14/2014 04/15/2014 Inactive (Response to an electronic controlled substance refill request - RxReferenceNumber: [id number]) alprazolam 0.25 mg tablet RxNorm: 786517 TAKE ONE TABLET BY MOUTH EVERY DAY NEEDED 04/14/2014 04/14/2014 Inactive (Response to an electronic controlled substance refill request - RxReferenceNumber: [id number]) nystatin 100,000 unit/gram topical powder RxNorm: 199888 1 Application TOP BID 04/03/2014 07/01/2014 Inactive [SAVINGS FOR UNINSURED PATIENTS -- BIN:901590, PCN: ASPROD1, Group: [id number], ID# [id number], Process claim through [employer], for questions: . THIS IS NOT INSURANCE.] Keflex 500 mg capsule RxNorm: 799901 1 Capsule(s) PO QID 04/03/2014 04/09/2014 Inactive [SAVINGS FOR UNINSURED PATIENTS -- BIN:417689, PCN: ASPROD1, Group: [id number], ID# [id number], Process claim through [employer], for questions: . THIS IS NOT INSURANCE.] Synthroid 100 mcg tablet RxNorm: 660873 1 Tablet(s) PO daily TAKE ONE TABLET BY MOUTH EVERY DAY 04/01/2014 01/05/2015 Inactive [SAVINGS FOR UNINSURED PATIENTS -- BIN:575927, PCN: ASPROD1, Group: [id number], ID# [id number], Process claim through [employer], for questions: . THIS IS NOT INSURANCE.] Duragesic 50 mcg/hr transdermal patch RxNorm: 662392 1 TD q72 hours 03/24/2014 06/04/2014 Inactive [SAVINGS FOR UNINSURED PATIENTS -- BIN:976624, PCN: ASPROD1, Group: [id number], ID# [id number], Process claim through [employer], for questions: . THIS IS NOT INSURANCE.] trazodone 50 mg tablet RxNorm: 409751 TAKE 1 AND 1/2 TABLET AT BEDTIME FOR 2 WEEKS, MAY INCREASE TO 2 TABLETS IF NECESSARY AFTER THAT 03/18/2014 09/13/2014 Inactive nystatin 100,000 unit/gram topical powder RxNorm: 355051 1 Application TOP BID 03/07/2014 03/16/2014 Inactive [SAVINGS FOR UNINSURED PATIENTS -- BIN:250622, PCN: ASPROD1, Group: [id number], ID# [id number], Process claim through [employer], for questions: . THIS IS NOT INSURANCE.] permethrin 5 % topical cream RxNorm: 045259 1 Application TOP daily 03/07/2014 11/23/2015 Inactive apply head to toe-leave on overnight and wash off in the a.m. May repeat x 1 if needed Diflucan 150 mg tablet RxNorm: 948378 1 Tablet(s) PO daily 03/07/2014 03/09/2014 Inactive [SAVINGS FOR UNINSURED PATIENTS -- BIN:494427, PCN: ASPLEYDA1, Group: [id number], ID# [id number], Process claim through [employer], for questions: . THIS IS NOT INSURANCE.] hydrochlorothiazide 25 mg tablet RxNorm: 176884 TAKE ONE TABLET BY MOUTH EVERY DAY MUST CALL MD FOR APPOINTMENT 03/06/2014 04/23/2014 Inactive Zithromax Z-Sergio 250 mg tablet RxNorm: 678626 Tablet(s) PO as directed 03/04/2014 11/23/2015 Inactive [SAVINGS FOR UNINSURED PATIENTS -- BIN:316733, PCN: ASPROD1, Group: [id number], ID# [id number], Process claim through [employer], for questions: . THIS IS NOT INSURANCE.] Flonase 50 mcg/actuation nasal spray,suspension RxNorm: 250815 1 [place] NASAL daily 03/04/2014 07/01/2014 Inactive [SAVINGS FOR UNINSURED PATIENTS -- BIN:582147, PCN: ASPROD1, Group: [id number], ID# [id number], Process claim through [employer], for questions: . THIS IS NOT INSURANCE.] alprazolam 0.25 mg tablet RxNorm: 830946 1 Tablet(s) PO PRN TAKE ONE TABLET BY MOUTH EVERY DAY NEEDED 02/25/2014 04/14/2014 Inactive (Appended: Controlled substance eRx refill - RxReferenceNumber: [id number]) alprazolam 0.25 mg tablet RxNorm: 128445 TAKE ONE TABLET BY MOUTH EVERY DAY NEEDED 02/21/2014 03/22/2014 Inactive (Response to an electronic controlled substance refill request - RxReferenceNumber: [id number]) alprazolam 0.25 mg tablet RxNorm: 075540 TAKE ONE TABLET BY MOUTH EVERY DAY NEEDED 02/21/2014 03/22/2014 Inactive (Response to an electronic controlled substance refill request - RxReferenceNumber: [id number]) alprazolam 0.25 mg tablet RxNorm: 167754 TAKE ONE TABLET BY MOUTH EVERY DAY NEEDED 02/18/2014 03/19/2014 Inactive (Response to an electronic controlled substance refill request - RxReferenceNumber: [id number]) Cymbalta 60 mg capsule,delayed release RxNorm: 855310 TAKE ONE CAPSULE BY MOUTH TWICE A DAY 02/18/2014 01/13/2015 Inactive Nexium 40 mg capsule,delayed release RxNorm: 100947 TAKE ONE CAPSULE BY MOUTH EVERY DAY 02/18/2014 01/13/2015 Inactive Bactrim DS 800 mg-160 mg tablet RxNorm: 003143 1 Tablet(s) PO BID 02/13/2014 02/19/2014 Inactive probiotic while one antibiotic Bactrim DS 800 mg-160 mg tablet RxNorm: 940295 1 Tablet(s) PO BID 02/13/2014 02/12/2014 Inactive hydrocodone 10 mg-acetaminophen 325 mg tablet RxNorm: 031058 Tablet(s) PO TAKE ONE TO TWO TABLETS BY MOUTH EVERY 6 HOURS NEEDED FOR PAIN 02/06/2014 03/18/2015 Inactive (Appended: Controlled substance eRx refill - RxReferenceNumber: [id number]) Abilify 2 mg tablet RxNorm: 786240 Tablet(s) PO TAKE ONE TABLET BY MOUTH EVERY NIGHT AT BEDTIME 02/03/2014 03/19/2015 Inactive Duragesic 50 mcg/hr transdermal patch RxNorm: 461871 1 TD q72 hours 01/14/2014 03/23/2014 Inactive alprazolam 0.25 mg tablet RxNorm: 357040 1 Tablet(s) PO QDAY PRN 01/14/2014 02/12/2014 Inactive alprazolam 0.25 mg tablet RxNorm: 541577 Tablet(s) PO TAKE ONE TABLET BY MOUTH EVERY DAY NEEDED 01/14/2014 02/24/2014 Inactive (Appended: Controlled substance eRx refill - RxReferenceNumber: [id number]) Lipitor 10 mg tablet RxNorm: 403463 Tablet(s) PO TAKE ONE TABLET BY MOUTH EVERY DAY 01/14/2014 04/13/2014 Inactive Synthroid 100 mcg tablet RxNorm: 118669 Tablet(s) PO TAKE ONE TABLET BY MOUTH EVERY DAY 2013 03/31/2014 Inactive Fioricet 50 mg-325 mg-40 mg tablet RxNorm: 290859 Tablet(s) PO TAKE ONE TABLET BY MOUTH EVERY 4 HOURS NEEDED FOR PAIN 11/27/2013 09/17/2014 Inactive Fioricet 50 mg-325 mg-40 mg tablet RxNorm: 002289 Tablet(s) PO TAKE ONE TABLET BY MOUTH EVERY 4 HOURS NEEDED FOR PAIN 11/25/2013 11/26/2013 Inactive Zithromax Z-Sergio 250 mg tablet RxNorm: 392187 Tablet(s) PO as directed 11/11/2013 01/13/2014 Inactive Bystolic 10 mg tablet RxNorm: 819692 Tablet(s) PO TAKE ONE TABLET BY MOUTH EVERY DAY 10/21/2013 09/28/2014 Inactive Abilify 2 mg tablet RxNorm: 526993 1 Tablet(s) PO QHS 09/25/2013 01/22/2014 Inactive Synthroid 100 mcg tablet RxNorm: 055325 Tablet(s) PO TAKE ONE TABLET BY MOUTH EVERY DAY 09/24/2013 12/25/2013 Inactive Abilify 2 mg tablet RxNorm: 739100 1 Tablet(s) PO QHS 09/24/2013 09/24/2013 Inactive Rocephin 500 mg solution for injection RxNorm: 192726 1ml Milliliter(s) Inj 09/24/2013 09/24/2013 Inactive Rocephin 500 mg solution for injection RxNorm: 400606 1 Milliliter(s) Inj 09/19/2013 09/19/2013 Inactive Bystolic 5 mg tablet RxNorm: 467440 1 1/2 Tablet(s) PO daily 09/17/2013 03/15/2014 Inactive 1 1/2 daily may have 90 day if cheaper Bystolic 5 mg tablet RxNorm: 137697 1 1/2 Tablet(s) PO daily 09/17/2013 09/16/2013 Inactive 1 1/2 daily Lipitor 10 mg tablet RxNorm: 893202 Tablet(s) PO TAKE ONE TABLET BY MOUTH EVERY DAY 09/12/2013 01/13/2014 Inactive hydrocodone 10 mg-acetaminophen 325 mg tablet RxNorm: 689232 Tablet(s) PO TAKE ONE TO TWO TABLETS BY MOUTH EVERY 6 HOURS NEEDED FOR PAIN 09/09/2013 10/29/2017 Inactive (Appended: Controlled substance eRx refill - RxReferenceNumber: [id number]) hydrocodone 10 mg-acetaminophen 325 mg tablet RxNorm: 692260 1 Tablet(s) PO Q6 PRN 09/09/2013 02/06/2014 Inactive hydrocodone 10 mg-acetaminophen 325 mg tablet RxNorm: 206693 Tablet(s) PO TAKE ONE TO TWO TABLETS BY MOUTH EVERY 6 HOURS NEEDED FOR PAIN 09/06/2013 10/29/2017 Inactive (Appended: Controlled substance eRx refill - RxReferenceNumber: [id number]) Norvasc 10 mg tablet RxNorm: 070697 Tablet(s) PO TAKE ONE TABLET BY MOUTH EVERY DAY 09/05/2013 10/25/2015 Inactive trazodone 50 mg tablet RxNorm: 162376 1 1/2 Tablet(s) PO QHS 09/03/2013 03/17/2014 Inactive 75q hs x 2 week may increase to 100mg if nec after that nystatin 100,000 unit/mL oral suspension RxNorm: 033987 6 Milliliter(s) PO QID 08/06/2013 08/15/2013 Inactive Flonase 50 mcg/actuation nasal spray,suspension RxNorm: 409828 2 [place] NASAL daily 08/06/2013 03/03/2014 Inactive nystatin 100,000 unit/mL oral suspension RxNorm: 726408 6 Unit(s) PO QID 08/05/2013 08/05/2013 Inactive Phenergan with Codeine Syrup RxNorm: 5 Milliliter(s) PO Q4 PRN 08/05/2013 12/02/2013 Inactive 8 ounces alprazolam 0.25 mg tablet RxNorm: 165665 1 Tablet(s) PO QDAY PRN 07/29/2013 01/14/2014 Inactive Diflucan 150 mg tablet RxNorm: 244439 1 Tablet(s) PO daily 07/24/2013 07/26/2013 Inactive hydrochlorothiazide 25 mg tablet RxNorm: 431565 Tablet(s) PO TAKE ONE TABLET BY MOUTH EVERY DAY MUST CALL MD FOR APPOINTMENT 07/19/2013 03/05/2014 Inactive Phenergan with Codeine Syrup RxNorm: 10 Milliliter(s) PO Q4 PRN 07/10/2013 08/04/2013 Inactive 8 ounces Rocephin 500 mg solution for injection RxNorm: 8836786 1 Inj 07/10/2013 07/10/2013 Inactive cefdinir 300 mg capsule RxNorm: 679868 1 Capsule(s) PO BID 07/10/2013 07/16/2013 Inactive prednisone 10 mg tablet RxNorm: 413999 3 Tablet(s) PO daily 07/10/2013 07/14/2013 Inactive Carafate 100 mg/mL oral suspension RxNorm: 232077 10 Milliliter(s) PO Q6 PRN pt to take carafate 10mL every 6 hours as needed. 07/10/2013 08/05/2014 Inactive Kenalog 40 mg/mL suspension for injection RxNorm: 5354484 1 Milliliter(s) Inj 07/10/2013 07/10/2013 Inactive trazodone 50 mg tablet RxNorm: 668863 1 Tablet(s) PO QHS 07/10/2013 09/02/2013 Inactive sulfamethoxazole 800 mg-trimethoprim 160 mg tablet RxNorm: 035436 1 Tablet(s) PO BID 06/03/2013 06/12/2013 Inactive Synthroid 125 mcg tablet RxNorm: 695108 1 Tablet(s) PO daily 05/07/2013 09/23/2013 Inactive Bystolic 10 mg tablet RxNorm: 417347 1.5 Tablet(s) PO daily 05/07/2013 09/03/2013 Inactive Voltaren 1 % Topical Gel RxNorm: 548371 4 Gram(s) TOP QID apply 4 grams to knees, 2 grams to hands and ankles four times daily. 05/07/2013 09/03/2013 Inactive hydrocodone 10 mg-acetaminophen 325 mg tablet RxNorm: 007266 1 Tablet(s) PO Q6 PRN 04/23/2013 09/09/2013 Inactive Norvasc 10 mg tablet RxNorm: 936151 Tablet(s) PO TAKE ONE TABLET BY MOUTH EVERY DAY 04/23/2013 09/04/2013 Inactive alprazolam 0.25 mg tablet RxNorm: 421014 1 Tablet(s) PO QDAY PRN 03/25/2013 07/22/2013 Inactive Bystolic 10 mg tablet RxNorm: 219680 1 Tablet(s) PO daily TAKE ONE TABLET BY MOUTH EVERY DAY 03/25/2013 05/06/2013 Inactive zolpidem 10 mg tablet RxNorm: 959637 1 Tablet(s) PO HS PRN 03/25/2013 07/09/2013 Inactive gentamicin 0.3 % Eye Drops RxNorm: 096393 3 Drop(s) OPH QID three gtts to each eye QID x 7 days 03/11/2013 03/10/2013 Inactive gentamicin 0.3 % eye drops RxNorm: 572748 3 Drop(s) OPH QID three gtts to each eye QID x 7 days 03/11/2013 03/17/2013 Inactive Nexium 40 mg capsule,delayed release RxNorm: 287215 Capsule(s) PO TAKE ONE CAPSULE BY MOUTH EVERY DAY 02/15/2013 02/17/2014 Inactive Cymbalta 60 mg capsule,delayed release RxNorm: 939495 Capsule(s) PO TAKE ONE CAPSULE BY MOUTH TWICE A DAY 02/15/2013 02/17/2014 Inactive hydrocodone 10 mg-acetaminophen 325 mg tablet RxNorm: 9389140 1 Tablet(s) PO Q6 PRN 01/22/2013 04/22/2013 Inactive Lipitor 10 mg tablet RxNorm: 402546 Tablet(s) PO TAKE ONE TABLET BY MOUTH EVERY DAY 01/07/2013 09/11/2013 Inactive Cymbalta 60 mg capsule,delayed release RxNorm: 024574 Capsule(s) PO TAKE ONE CAPSULE BY MOUTH TWICE A DAY 01/02/2013 02/14/2013 Inactive Synthroid 100 mcg tablet RxNorm: 119078 1 Tablet(s) PO 12/03/2012 05/06/2013 Inactive Enablex 7.5 mg tablet,extended release RxNorm: 637536 1 Tablet(s) PO daily 11/28/2012 11/27/2012 Inactive Enablex 7.5 mg tablet,extended release RxNorm: 820347 1 Tablet(s) PO daily 11/28/2012 11/28/2012 Inactive scopolamine 1.5 mg 72 hr Transderm Patch RxNorm: 370436 1 Milligram(s) TD q72 hours 11/26/2012 05/06/2013 Inactive hydrochlorothiazide 25 mg tablet RxNorm: 841132 Tablet(s) PO TAKE ONE TABLET BY MOUTH EVERY DAY MUST CALL FOR APPOINTMENT 11/24/2012 07/18/2013 Inactive Cymbalta 60 mg capsule,delayed release RxNorm: 412145 Capsule(s) PO TAKE ONE CAPSULE BY MOUTH TWICE A DAY 10/26/2012 01/01/2013 Inactive Bystolic 10 mg tablet RxNorm: 720481 Tablet(s) PO TAKE ONE TABLET BY MOUTH EVERY DAY 10/12/2012 03/25/2013 Inactive zolpidem 10 mg tablet RxNorm: 333629 1 Tablet(s) PO HS PRN 10/02/2012 01/29/2013 Inactive alprazolam 0.25 mg tablet RxNorm: 560155 1 Tablet(s) PO QDAY PRN 10/02/2012 01/29/2013 Inactive Kenalog 40 mg/mL Susp for Injection RxNorm: 5065441 1 Milliliter(s) Inj 09/24/2012 09/24/2012 Inactive Diflucan 150 mg tablet RxNorm: 771704 1 Tablet(s) PO daily 09/24/2012 09/30/2012 Inactive acyclovir 400 mg tablet RxNorm: 703306 1 Tablet(s) PO QID 09/24/2012 10/08/2012 Inactive Cipro 500 mg tablet RxNorm: 071271 1 Tablet(s) PO BID 09/24/2012 09/30/2012 Inactive Tamiflu 75 mg capsule RxNorm: 691947 1 Capsule(s) PO BID 09/17/2012 09/16/2012 Inactive Tamiflu 75 mg capsule RxNorm: 280078 1 Capsule(s) PO BID 09/17/2012 09/16/2012 Inactive Tamiflu 75 mg capsule RxNorm: 200673 1 Capsule(s) PO BID please disregard order for #14 09/17/2012 09/21/2012 Inactive fluconazole 150 mg tablet RxNorm: 721590 1 Tablet(s) PO daily 09/10/2012 09/13/2012 Inactive ketoconazole 2 % Topical Cream RxNorm: 839717 Application TOP BID apply to affected area BID until gone 08/31/2012 11/01/2017 Inactive Norvasc 10 mg tablet RxNorm: 485061 Tablet(s) PO TAKE ONE TABLET BY MOUTH EVERY DAY 08/29/2012 04/22/2013 Inactive Cipro 500 mg tablet RxNorm: 603872 1 Tablet(s) PO BID 08/17/2012 08/26/2012 Inactive Flagyl 500 mg tablet RxNorm: 141632 1 Tablet(s) PO TID 08/17/2012 08/23/2012 Inactive Cipro 500 mg tablet RxNorm: 560265 1 Tablet(s) PO BID 08/17/2012 08/16/2012 Inactive zolpidem 10 mg tablet RxNorm: 994172 1 Tablet(s) PO HS PRN 08/17/2012 09/15/2012 Inactive Flagyl 500 mg tablet RxNorm: 547203 1 Tablet(s) PO TID 08/17/2012 08/16/2012 Inactive alprazolam 0.25 mg tablet RxNorm: 595039 1 Tablet(s) PO QDAY PRN 08/17/2012 09/15/2012 Inactive Belle Allergy 180 mg tablet RxNorm: 854946 1 Tablet(s) PO daily 08/08/2012 02/03/2013 Inactive hydrochlorothiazide 25 mg tablet RxNorm: 630461 1/2 Tablet(s) PO daily 08/08/2012 11/05/2012 Inactive needs appt Carafate 1 gram tablet RxNorm: 338878 1 Tablet(s) PO QID mix with 10 cc water and dissolve into slurry 08/08/2012 08/21/2012 Inactive hydrocodone 10 mg-acetaminophen 325 mg tablet RxNorm: 3861654 1 Tablet(s) PO Q6 PRN 08/08/2012 01/21/2013 Inactive Synthroid 100 mcg tablet RxNorm: 163586 1 Tablet(s) PO 08/08/2012 12/02/2012 Inactive Cymbalta 60 mg capsule,delayed release RxNorm: 623363 Capsule(s) PO 07/23/2012 10/25/2012 Inactive TAKE ONE CAPSULE BY MOUTH TWICE A DAY Nexium 40 mg capsule,delayed release RxNorm: 886282 Capsule(s) PO 06/20/2012 02/14/2013 Inactive TAKE ONE CAPSULE BY MOUTH EVERY DAY Lipitor 10 mg tablet RxNorm: 247431 Tablet(s) PO 06/20/2012 01/06/2013 Inactive TAKE ONE TABLET BY MOUTH EVERY DAY hydrochlorothiazide 25 mg tablet RxNorm: 146760 1 Tablet(s) PO daily 06/19/2012 08/07/2012 Inactive needs appt alprazolam 0.25 mg tablet RxNorm: 813962 1 Tablet(s) PO QDAY PRN 06/05/2012 07/04/2012 Inactive zolpidem 10 mg tablet RxNorm: 369337 1 Tablet(s) PO HS PRN 06/05/2012 07/04/2012 Inactive zolpidem 10 mg tablet RxNorm: 740194 1 Tablet(s) PO HS PRN 04/16/2012 05/15/2012 Inactive alprazolam 0.25 mg tablet RxNorm: 142832 1 Tablet(s) PO QDAY PRN 04/16/2012 05/15/2012 Inactive Cymbalta 60 mg capsule,delayed release RxNorm: 014337 1 Capsule(s) PO BID 03/22/2012 07/19/2012 Inactive Fioricet 50 mg-325 mg-40 mg tablet RxNorm: 388355 1 Tablet(s) PO Q4 PRN 03/22/2012 11/24/2013 Inactive Bystolic 10 mg tablet RxNorm: 816301 Tablet(s) PO 03/22/2012 10/11/2012 Inactive TAKE ONE TABLET BY MOUTH EVERY DAY potassium chloride ER 10 mEq Tab RxNorm: 306956 1 Tablet(s) PO daily 02/24/2012 03/01/2012 Inactive Lasix 20 mg Tab RxNorm: 945157 1 Tablet(s) PO daily 02/22/2012 02/21/2012 Inactive KCL 10 meq RxNorm: 1 PO daily 02/22/2012 02/21/2012 Inactive potassium chloride ER 10 mEq Tab RxNorm: 261966 1 Tablet(s) PO daily 02/22/2012 02/21/2012 Inactive Lasix 20 mg Tab RxNorm: 520105 1 Tablet(s) PO daily 02/22/2012 02/28/2012 Inactive KCL 10 meq RxNorm: 1 PO daily 02/22/2012 02/22/2012 Inactive potassium chloride ER 10 mEq Tab RxNorm: 375615 1 Tablet(s) PO daily 02/22/2012 02/23/2012 Inactive Rocephin 500 mg Solution for Injection RxNorm: 1823548 Inj 02/15/2012 02/15/2012 Inactive Nexium 40 mg capsule,delayed release RxNorm: 173208 1 Capsule(s) PO daily 02/15/2012 No Stop Date Active Bystolic 10 mg Tab RxNorm: 413979 1 Tablet(s) PO daily 02/15/2012 08/12/2012 Inactive alprazolam 0.25 mg tablet RxNorm: 172999 1 Tablet(s) PO QDAY PRN 01/31/2012 02/29/2012 Inactive zolpidem 10 mg tablet RxNorm: 650023 1 Tablet(s) PO HS PRN 01/31/2012 02/29/2012 Inactive alprazolam 0.25 mg Tab RxNorm: 620819 1 Tablet(s) PO QDAY PRN 12/16/2011 01/14/2012 Inactive zolpidem 10 mg Tab RxNorm: 822108 1 Tablet(s) PO HS PRN 12/16/2011 01/14/2012 Inactive Norvasc 10 mg tablet RxNorm: 332303 1 Tablet(s) PO daily 12/02/2011 02/21/2012 Inactive Lipitor 10 mg tablet RxNorm: 507803 1 Tablet(s) PO daily 11/16/2011 05/13/2012 Inactive zolpidem 10 mg Tab RxNorm: 526442 1 Tablet(s) PO HS PRN 10/26/2011 12/15/2011 Inactive alprazolam 0.25 mg Tab RxNorm: 009779 1 Tablet(s) PO QDAY PRN 10/26/2011 12/15/2011 Inactive hydrochlorothiazide 25 mg tablet RxNorm: 752235 1 Tablet(s) PO daily 09/05/2011 03/02/2012 Inactive Synthroid 75 mcg tablet RxNorm: 509405 1 Tablet(s) PO daily 08/01/2011 02/26/2012 Inactive Abilify 2 mg Tab RxNorm: 576412 1 Tablet(s) PO QHS 08/01/2011 09/10/2012 Inactive dicyclomine 10 mg Cap RxNorm: 003276 1 Capsule(s) PO TID 08/01/2011 10/29/2011 Inactive alprazolam 0.25 mg Tab RxNorm: 004353 1 Tablet(s) PO QDAY PRN 07/26/2011 10/25/2011 Inactive Fioricet 50 mg-325 mg-40 mg tablet RxNorm: 404360 1 Tablet(s) PO Q4 PRN 07/14/2011 03/21/2012 Inactive Rocephin 500 mg Solution for Injection RxNorm: 0569526 1 Milliliter(s) Inj 07/14/2011 08/01/2011 Inactive Nexium 40 mg Capsule, delayed release RxNorm: 857979 1 Capsule(s) PO daily 05/23/2011 10/06/2011 Inactive Bystolic 10 mg tablet RxNorm: 559007 1 Tablet(s) PO daily 05/23/2011 11/18/2011 Inactive Bystolic 10 mg Tab RxNorm: 995569 1 Tablet(s) PO daily 05/23/2011 05/22/2011 Inactive alprazolam 0.25 mg Tab RxNorm: 222048 1 Tablet(s) PO QDAY PRN 05/23/2011 07/25/2011 Inactive Influenza Virus Vaccine 0.5 mL RxNorm: IM 05/23/2011 05/23/2011 Inactive zolpidem 10 mg Tab RxNorm: 061631 1 Tablet(s) PO HS PRN 05/23/2011 10/25/2011 Inactive Rocephin 500 mg Solution for Injection RxNorm: 6705439 1 Milliliter(s) Inj 05/03/2011 07/14/2011 Inactive Kenalog 40 mg/mL Susp for Injection RxNorm: 2041467 1 Milliliter(s) Inj 05/03/2011 07/14/2011 Inactive Bactrim DS 800 mg-160 mg Tab RxNorm: 980167 1 Tablet(s) PO BID 05/03/2011 08/01/2011 Inactive Bystolic 10 mg tablet RxNorm: 613515 1 Tablet(s) PO daily No Start Date Active Flonase 50 mcg/actuation nasal spray,suspension RxNorm: 6974595 2 [place] NASAL daily No Start Date 08/05/2013 Inactive Levaquin 500 mg tablet RxNorm: 159810 Tablet(s) PO No Start Date 04/19/2017 Inactive Duragesic 50 mcg/hr transdermal patch RxNorm: 686230 1 TD q72 hours No Start Date 01/13/2014 Inactive Vesicare 5 mg tablet RxNorm: 033987 1 Tablet(s) PO daily No Start Date 01/06/2015 Inactive Celebrex 200 mg capsule RxNorm: 623384 1 Capsule(s) PO daily No Start Date 04/02/2014 Inactive zolpidem 10 mg Tab RxNorm: 199093 1 Tablet(s) PO HS PRN No Start Date 05/22/2011 Inactive Zyrtec 10 mg Tab RxNorm: 0077678 1 Tablet(s) PO daily No Start Date 08/08/2012 Inactive Flonase 50 mcg/actuation nasal spray,suspension RxNorm: 2017030 1 [place] NASAL daily No Start Date 11/07/2017 Inactive 1 spray to each nostril daily Nexium 40 mg Cap RxNorm: 497547 1 Capsule(s) PO daily No Start Date 05/22/2011 Inactive ketoconazole 2 % Topical Cream RxNorm: 241027 Application TOP BID apply to affected area BID until gone No Start Date 08/30/2012 Inactive aspirin 81 mg tablet RxNorm: 881578 1 Tablet(s) PO daily No Start Date 11/13/2017 Inactive Cymbalta 60 mg capsule,delayed release RxNorm: 237065 1 Capsule(s) PO BID No Start Date 03/21/2012 Inactive alprazolam 0.25 mg Tab RxNorm: 199312 1 Tablet(s) PO QDAY PRN No Start Date 05/22/2011 Inactive baclofen 10 mg tablet RxNorm: 049319 1 Tablet(s) PO TID as needed muscle spasms No Start Date 11/14/2017 Inactive Toprol XL 100 mg 24 hr Tab RxNorm: 329375 1 Tablet(s) PO BID No Start Date 04/25/2011 Inactive Xanax 0.25 mg tablet RxNorm: 708263 1 Tablet(s) PO daily as needed No Start Date 12/27/2015 Inactive Bystolic 10 mg Tab RxNorm: 977458 1 Tablet(s) PO daily No Start Date 05/22/2011 Inactive Fioricet 50 mg-325 mg-40 mg Tab RxNorm: 786575 1 Tablet(s) PO Q4 PRN No Start Date 07/13/2011 Inactive albuterol sulfate HFA 90 mcg/Actuation Aerosol Inhaler RxNorm: 2792553 1 INH Q4 PRN No Start Date 01/06/2015 Inactive Imitrex 50 mg tablet RxNorm: 516704 1 Tablet(s) PO Q8 as needed may repeat x1 dose in 1 hour of inital dose. No Start Date 02/24/2016 Inactive dc fioricet Tessalon 200 mg Cap RxNorm: 812394 1 Capsule(s) PO Q4 PRN No Start Date 02/14/2012 Inactive Zithromax Z-Sergio 250 mg tablet RxNorm: 668317 Tablet(s) PO No Start Date 11/10/2013 Inactive hydrochlorothiazide 25 mg Tab RxNorm: 414955 1 Tablet(s) PO daily No Start Date 09/04/2011 Inactive Fish Oil 1,000 mg Cap RxNorm: 1 Capsule(s) PO TID No Start Date 11/08/2017 Inactive Deplin 15 mg Tab RxNorm: 1 Tablet(s) PO daily No Start Date 08/01/2011 Inactive Brilinta 90 mg tablet RxNorm: 5653597 1 Tablet(s) PO BID No Start Date 11/23/2015 Inactive Synthroid 75 mcg Tab RxNorm: 631692 1 Tablet(s) PO daily No Start Date 07/31/2011 Inactive ciprofloxacin 0.3 % eye drops RxNorm: 662704 2 Drop(s) ophthalmic (eye) Q2H while awake x 2 days, then Q4H x 5 days No Start Date 11/22/2017 Inactive scopolamine 1.5 mg 72 hr Transderm Patch RxNorm: 775941 1 Milligram(s) TD q72 hours No Start Date 11/25/2012 Inactive hydrocodone-acetaminophen 10 mg-325 mg tablet RxNorm: 5804002 1 Tablet(s) PO Q6 PRN No Start Date 08/07/2012 Inactive Phenergan with Codeine Syrup RxNorm: 5-10 Milliliter(s) PO Q6 PRN No Start Date 02/14/2012 Inactive Norvasc 10 mg Tab RxNorm: 995234 1 Tablet(s) PO daily No Start Date 12/01/2011 Inactive Zithromax Z-Sergio 250 mg Tab RxNorm: 990995 Tablet(s) PO No Start Date 08/01/2011 Inactive Medication Administered Medication Codes Instructions Start Date Status ceftriaxone 500 mg solution for injection RxNorm: 3000191 05/28/2018 No longer Active Kenalog 40 mg/mL suspension for injection RxNorm: 2101573 Milliliter 05/28/2018 No longer Active ceftriaxone 500 mg solution for injection RxNorm: 1556291 500Milligram 01/19/2018 No longer Active Kenalog 40 mg/mL suspension for injection RxNorm: 5796484 1Milliliter 01/19/2018 No longer Active Kenalog 40 mg/mL suspension for injection RxNorm: 2100746 1Milliliter 06/27/2017 No longer Active Kenalog 40 mg/mL suspension for injection RxNorm: 9928372 Milliliter 04/20/2017 No longer Active Kenalog 40 mg/mL suspension for injection RxNorm: 3323416 1Milliliter 03/14/2017 No longer Active ceftriaxone 500 mg solution for injection RxNorm: 4757645 1Milliliter 11/28/2016 No longer Active Kenalog 40 mg/mL suspension for injection RxNorm: 7454528 Milliliter 11/07/2016 No longer Active ceftriaxone 500 mg solution for injection RxNorm: 9010128 11/07/2016 No longer Active ceftriaxone 500 mg solution for injection RxNorm: 2696468 12/07/2015 No longer Active Kenalog 40 mg/mL suspension for injection RxNorm: 7538779 1Milliliter 11/24/2015 No longer Active ceftriaxone 500 mg solution for injection RxNorm: 9129794 Milliliter 11/24/2015 No longer Active promethazine 25 mg/mL injection solution RxNorm: 177718 Milliliter 08/27/2015 No longer Active ketorolac 60 mg/2 mL intramuscular solution RxNorm: 569574 Milliliter 08/27/2015 No longer Active Kenalog 40 mg/mL suspension for injection RxNorm: 2646437 Milliliter 08/10/2015 No longer Active ceftriaxone 500 mg solution for injection RxNorm: 2779162 08/10/2015 No longer Active ceftriaxone 500 mg solution for injection RxNorm: 3280457 1Milliliter 07/28/2015 No longer Active Kenalog 40 mg/mL suspension for injection RxNorm: 4474715 Milliliter 03/19/2015 No longer Active Kenalog 40 mg/mL suspension for injection RxNorm: 3268979 Milliliter 06/23/2014 No longer Active ceftriaxone 500 mg solution for injection RxNorm: 568623 06/23/2014 No longer Active Rocephin 500 mg solution for injection RxNorm: 017296 1mlMilliliter 09/24/2013 No longer Active Rocephin 500 mg solution for injection RxNorm: 348268 1Milliliter 09/19/2013 No longer Active Rocephin 500 mg solution for injection RxNorm: 6616551 1 07/10/2013 No longer Active Kenalog 40 mg/mL suspension for injection RxNorm: 0705006 1Milliliter 07/10/2013 No longer Active Kenalog 40 mg/mL Susp for Injection RxNorm: 7669707 1Milliliter 09/24/2012 No longer Active Rocephin 500 mg Solution for Injection RxNorm: 9285090 02/15/2012 No longer Active Influenza Virus Vaccine [...] Item Item Code Result Date Free T4 Lhd753 FREE T4 0.71 ng/dL 10/31/2018 Tsh Ord6 TSH (3rd IS) 7.87 uIU/mL 10/31/2018 Lipid Ord30 CHOL 170 mg/dL 10/31/2018 Lipid Ord30 HDL 53.0 mg/dl 10/31/2018 Lipid Ord30 TRIG 85 mg/dL 10/31/2018 Lipid Ord30 LDL 100 mg/dL 10/31/2018 Lipid Ord30 C/HDL 3.2 Ratio 10/31/2018 Comp Metabolic Olq897 NA 142 mEq/L 10/31/2018 Comp Metabolic Uzl963 K 4.0 mEq/L 10/31/2018 Comp Metabolic Dsv998 CL 106 mEq/L 10/31/2018 Comp Metabolic Sty305 CO2 27.0 mEq/L 10/31/2018 Comp Metabolic Qeo249 ANION GAP 13 10/31/2018 Comp Metabolic Qka758 GLUCOSE 114 mg/dL 10/31/2018 Comp Metabolic Phc013 Creat 0.7 mg/dL 10/31/2018 Comp Metabolic Xjz008 eGFR 90 ml/min/1.73m2 10/31/2018 Comp Metabolic Ezq642 BUN 21 mg/dL 10/31/2018 Comp Metabolic Xre546 B/C Ratio 30.9 Ratio 10/31/2018 Comp Metabolic Crr742 CALCIUM 9.7 mg/dL 10/31/2018 Comp Metabolic Jvl620 ALK PHOS 63 U/L 10/31/2018 Comp Metabolic Wmt126 AST(SGOT) 24 U/L 10/31/2018 Comp Metabolic Uod853 ALT(SGPT) 21 U/L 10/31/2018 Comp Metabolic Xxl736 BILI T 0.6 mg/dL 10/31/2018 Comp Metabolic Xzp079 ALBUMIN 4.1 g/dL 10/31/2018 Comp Metabolic Mbk481 TPRO 6.6 g/dL 10/31/2018 Comp Metabolic Ema752 GLOB 2.5 g/dL 10/31/2018 Comp Metabolic Nqw684 A/G Ratio 1.7 Ratio 10/31/2018 Comp Metabolic Pil303 Osmo 287 mOsmo 10/31/2018 Cbc With Differential [...] 30.9 pg 10/31/2018 Cbc With Differential Ord2 [place]% 8.0 % 10/31/2018 Cbc With Differential Ord2 [...] 1.88 K/ul 10/31/2018 Cbc With Differential Ord2 [place] ABS# 0.6 K/ul 10/31/2018 Cbc With Differential Ord2 Eos ABS# 0.5 K/ul 10/31/2018 Cbc With Differential Ord2 Baso ABS# 0.1 K/ul 10/31/2018 Comp Metabolic Rsj067 NA 141 mEq/L 09/12/2017 Comp Metabolic Hno629 K 4.1 mEq/L 09/12/2017 Comp Metabolic Weg383 CL 105 mEq/L 09/12/2017 Comp Metabolic Uif229 CO2 30.0 mEq/L 09/12/2017 Comp Metabolic Kpv767 ANION GAP 10 09/12/2017 Comp Metabolic Yqt062 GLUCOSE 97 mg/dL 09/12/2017 Comp Metabolic Xra993 Creat 0.7 mg/dL 09/12/2017 Comp Metabolic Twe908 eGFR 91 ml/min/1.73m2 09/12/2017 Comp Metabolic Gfo107 BUN 18 mg/dL 09/12/2017 Comp Metabolic Jrk831 B/C Ratio 26.5 Ratio 09/12/2017 Comp Metabolic Khb608 CALCIUM 9.7 mg/dL 09/12/2017 Comp Metabolic Aol005 ALK PHOS 60 U/L 09/12/2017 Comp Metabolic Noa796 AST(SGOT) 22 U/L 09/12/2017 Comp Metabolic Hhf321 ALT(SGPT) 23 U/L 09/12/2017 Comp Metabolic Rdi276 BILI T 0.4 mg/dL 09/12/2017 Comp Metabolic Rcg133 ALBUMIN 3.8 g/dL 09/12/2017 Comp Metabolic Wsc822 TPRO 6.4 g/dL 09/12/2017 Comp Metabolic Rht686 GLOB 2.6 g/dL 09/12/2017 Comp Metabolic Smi483 A/G Ratio 1.5 Ratio 09/12/2017 Comp Metabolic Dfk023 Osmo 283 mOsmo 09/12/2017 Cbc With Differential [...] 30.7 pg 09/12/2017 Cbc With Differential Ord2 [place]% 7.2 % 09/12/2017 Cbc With Differential Ord2 [...] 2.46 K/ul 09/12/2017 Cbc With Differential Ord2 [place] ABS# 0.6 K/ul 09/12/2017 Cbc With Differential [...] 31.4 pg 11/07/2016 Cbc With Differential Ord2 [place]% 6.1 % 11/07/2016 Cbc With Differential Ord2 [...] 2.48 K/ul 11/07/2016 Cbc With Differential Ord2 [place] ABS# 0.6 K/ul 11/07/2016 Cbc With Differential Ord2 Eos ABS# 0.3 K/ul 11/07/2016 Cbc With Differential Ord2 Baso ABS# 0.1 K/ul 11/07/2016 Comp Metabolic Ccm872 NA 139 mEq/L 11/07/2016 Comp Metabolic Ozn920 K 3.8 mEq/L 11/07/2016 Comp Metabolic Lmu019 CL 106 mEq/L 11/07/2016 Comp Metabolic Tlu440 CO2 25.0 mEq/L 11/07/2016 Comp Metabolic Wpl261 ANION GAP 12 11/07/2016 Comp Metabolic Xen798 GLUCOSE 98 mg/dL 11/07/2016 Comp Metabolic Ghv804 Creat 0.8 mg/dL 11/07/2016 Comp Metabolic Cfp637 eGFR 71 ml/min/1.73m2 11/07/2016 Comp Metabolic Ecn802 BUN 36 mg/dL 11/07/2016 Comp Metabolic Icn344 B/C Ratio 42.9 Ratio 11/07/2016 Comp Metabolic Jbb952 CALCIUM 9.9 mg/dL 11/07/2016 Comp Metabolic Zrv579 ALK PHOS 57 U/L 11/07/2016 Comp Metabolic Dck683 AST(SGOT) 24 U/L 11/07/2016 Comp Metabolic Pxb550 ALT(SGPT) 28 U/L 11/07/2016 Comp Metabolic Bov211 BILI T 0.4 mg/dL 11/07/2016 Comp Metabolic Own247 ALBUMIN 4.2 g/dL 11/07/2016 Comp Metabolic Vnm110 TPRO 7.0 g/dL 11/07/2016 Comp Metabolic Qvj968 GLOB 2.8 g/dL 11/07/2016 Comp Metabolic Xyt404 A/G Ratio 1.5 Ratio 11/07/2016 Comp Metabolic Yun806 Osmo 286 mOsmo 11/07/2016 Free T4 Jqc927 FREE T4 0.75 ng/dL 11/07/2016 Tsh Ord6 hTSH II 3.46 uIU/mL 11/07/2016 Comp Metabolic Hzj863 NA 138 mEq/L 05/10/2016 Comp Metabolic Yoe172 K 3.8 mEq/L 05/10/2016 Comp Metabolic Wav935 CL 102 mEq/L 05/10/2016 Comp Metabolic Thf996 CO2 29.0 mEq/L 05/10/2016 Comp Metabolic Pth857 ANION GAP 11 05/10/2016 Comp Metabolic Lov017 GLUCOSE 107 mg/dL 05/10/2016 Comp Metabolic Vmb257 Creat 0.7 mg/dL 05/10/2016 Comp Metabolic Lma635 eGFR 93 ml/min/1.73m2 05/10/2016 Comp Metabolic Ptz769 BUN 18 mg/dL 05/10/2016 Comp Metabolic Kcw200 B/C Ratio 26.9 Ratio 05/10/2016 Comp Metabolic Nug119 CALCIUM 9.8 mg/dL 05/10/2016 Comp Metabolic Kym154 ALK PHOS 60 U/L 05/10/2016 Comp Metabolic Grz456 AST(SGOT) 21 U/L 05/10/2016 Comp Metabolic Jbz694 ALT(SGPT) 23 U/L 05/10/2016 Comp Metabolic Jty095 BILI T 0.5 mg/dL 05/10/2016 Comp Metabolic Gsr970 ALBUMIN 4.1 g/dL 05/10/2016 Comp Metabolic Nlb397 TPRO 6.7 g/dL 05/10/2016 Comp Metabolic Zic497 GLOB 2.7 g/dL 05/10/2016 Comp Metabolic Koz474 A/G Ratio 1.5 Ratio 05/10/2016 Comp Metabolic Uhk377 Osmo 278 mOsmo 05/10/2016 Lipid Ord30 CHOL 169 mg/dL 05/10/2016 Lipid Ord30 HDL 50.0 mg/dl 05/10/2016 Lipid Ord30 TRIG 161 mg/dL 05/10/2016 Lipid Ord30 LDL 87 mg/dL 05/10/2016 Lipid Ord30 C/HDL 3.4 Ratio 05/10/2016 Comp Metabolic Hkr310 NA 137 mEq/L 06/12/2015 Comp Metabolic Ehc311 K 3.8 mEq/L 06/12/2015 Comp Metabolic Mvc279 CL 104 mEq/L 06/12/2015 Comp Metabolic Reu403 CO2 24.0 mEq/L 06/12/2015 Comp Metabolic Qpj158 ANION GAP 13 06/12/2015 Comp Metabolic Eyy477 GLUCOSE 92 mg/dL 06/12/2015 Comp Metabolic Mcl182 Creat 0.7 mg/dL 06/12/2015 Comp Metabolic Bpq880 eGFR 87 ml/min/1.73m2 06/12/2015 Comp Metabolic Leq703 BUN 31 mg/dL 06/12/2015 Comp Metabolic Dzg452 B/C Ratio 43.7 Ratio 06/12/2015 Comp Metabolic Mah766 CALCIUM 10.0 mg/dL 06/12/2015 Comp Metabolic Cyc939 ALK PHOS 58 U/L 06/12/2015 Comp Metabolic Lbj461 AST(SGOT) 32 U/L 06/12/2015 Comp Metabolic Inu218 ALT(SGPT) 33 U/L 06/12/2015 Comp Metabolic Tph354 BILI T 0.5 mg/dL 06/12/2015 Comp Metabolic Bvc038 ALBUMIN 4.1 g/dL 06/12/2015 Comp Metabolic Hmf100 TPRO 6.6 g/dL 06/12/2015 Comp Metabolic Ymu678 GLOB 2.5 g/dL 06/12/2015 Comp Metabolic Hyl581 A/G Ratio 1.6 Ratio 06/12/2015 Comp Metabolic Coq380 Osmo 280 mOsmo 06/12/2015 Cbc With Differential [...] Differential Ord2 RDW 14.2 % 06/12/2015 CBC 3464067 WBC 8.7 10e9/L 04/30/2013 CBC 1750786 RBC 4.63 10e12/L 04/30/2013 CBC 8853156 HGB 14.1 g/dL 04/30/2013 CBC 7444274 HCT DET 42.2 % 04/30/2013 CBC 7434260 MCV 91.1 fL 04/30/2013 CBC 0643013 MCH 30.5 pg 04/30/2013 CBC 4367419 MCHC 33.4 g/dL 04/30/2013 CBC 7061222 PLT 248 10e9/L 04/30/2013 CBC 4065239 MPV 12.1 fL 04/30/2013 CBC 9017220 LARA % 59.0 % 04/30/2013 CBC 1725952 LY % 27.6 % 04/30/2013 CBC 3198912 MON % 8.0 % 04/30/2013 CBC 9747239 EOS % 4.8 % 04/30/2013 CBC 9682618 BASO % 0.6 % 04/30/2013 CBC 6238179 RDW 13.3 % 04/30/2013 CBC 2052337 ABS LARA 5.13 10e9/L 04/30/2013 CBC 4336917 ABS LYMPH 2.40 10e9/L 04/30/2013 CBC 1316732 ABS MONO 0.70 10e9/L 04/30/2013 CBC 5550845 ABS EOS 0.42 10e9/L 04/30/2013 CBC 8117378 ABS BASO 0.05 10e9/L 04/30/2013 CBC 3227218 RDW-SD 43.1 fL 04/30/2013 TSH 3636980 TSH 4.339 uIU/ML 04/30/2013 A1C HPLC 5325811 A1C HPLC 15350-5 5.6 % 04/30/2013 FREE T4 8183494 FREE T4 0.84 NG/DL 04/30/2013 GFR CALC 5820204 GFR AA >60 ML/MIN 04/30/2013 GFR CALC 0302431 GFR NON-AA >60 ML/MIN 04/30/2013 CHEM 14 1860674 AST 22 U/L 04/30/2013 CHEM 14 7454641 ALT 22 IU/L 04/30/2013 CHEM 14 5359435 BUN 24 MG/DL 04/30/2013 CHEM 14 0951187 ALBUMIN 4.2 GM/DL 04/30/2013 CHEM 14 0799049 CHLORIDE 107 MMOL/L 04/30/2013 CHEM 14 9505029 BILI TOT 0.3 MG/DL 04/30/2013 CHEM 14 5591857 ALK PHOS 88 U/L 04/30/2013 CHEM 14 8748686 SODIUM 141 MMOL/L 04/30/2013 CHEM 14 0273657 CREATININE 0.60 MG/DL 04/30/2013 CHEM 14 8817108 CALCIUM 9.9 MG/DL 04/30/2013 CHEM 14 8971655 POTASSIUM 3.7 MMOL/L 04/30/2013 CHEM 14 7794654 PROT TOT 6.6 GM/DL 04/30/2013 CHEM 14 8335540 GLUCOSE 123 MG/DL 04/30/2013 CHEM 14 2475300 BICARB 25 MMOL/L 04/30/2013 CHEM 14 8935572 ANION GAP 9 MEQ/L 04/30/2013 LIPID GRP HDL TEST 46 MG/DL 04/30/2013 LIPID GRP TRIG 148 MG/DL 04/30/2013 LIPID GRP TEST LDL 75 MG/DL 04/30/2013 LIPID GRP CHOL 151 MG/DL 04/30/2013 LIPID GRP RCHOL/HDL 3.28 RATIO 04/30/2013 TSH 0390529 TSH 3.341 uIU/ML 11/29/2012 CBC 8050086 WBC 8.4 10e9/L 11/29/2012 CBC 7313700 RBC 4.77 10e12/L 11/29/2012 CBC 0331620 HGB 14.9 g/dL 11/29/2012 CBC 3122728 HCT DET 44.2 % 11/29/2012 CBC 0746772 MCV 92.7 fL 11/29/2012 CBC 0391628 MCH 31.2 pg 11/29/2012 CBC 2237051 MCHC 33.7 g/dL 11/29/2012 CBC 6209547 PLT 253 10e9/L 11/29/2012 CBC 5506816 MPV 11.8 fL 11/29/2012 CBC 4165763 LARA % 54.9 % 11/29/2012 CBC 9538718 LY % 29.0 % 11/29/2012 CBC 9438154 MON % 10.4 % 11/29/2012 CBC 1109494 EOS % 5.1 % 11/29/2012 CBC 5206428 BASO % 0.6 % 11/29/2012 CBC 8720795 RDW 13.8 % 11/29/2012 CBC 5221580 ABS LARA 4.61 10e9/L 11/29/2012 CBC 9958315 ABS LYMPH 2.44 10e9/L 11/29/2012 CBC 3816364 ABS MONO 0.87 10e9/L 11/29/2012 CBC 2399989 ABS EOS 0.43 10e9/L 11/29/2012 CBC 1414418 ABS BASO 0.05 10e9/L 11/29/2012 CBC 3950379 RDW-SD 45.9 fL 11/29/2012 CHEM 14 9021074 AST 25 U/L 11/29/2012 CHEM 14 9361622 ALT 26 IU/L 11/29/2012 CHEM 14 5721256 BUN 25 MG/DL 11/29/2012 CHEM 14 2825872 ALBUMIN 4.4 GM/DL 11/29/2012 CHEM 14 8586527 CHLORIDE 106 MMOL/L 11/29/2012 CHEM 14 9840771 BILI TOT 0.4 MG/DL 11/29/2012 CHEM 14 0267595 ALK PHOS 86 U/L 11/29/2012 CHEM 14 0239420 SODIUM 141 MMOL/L 11/29/2012 CHEM 14 4295286 CREATININE 0.80 MG/DL 11/29/2012 CHEM 14 1623076 CALCIUM 9.7 MG/DL 11/29/2012 CHEM 14 3198644 POTASSIUM 4.0 MMOL/L 11/29/2012 CHEM 14 8378342 PROT TOT 6.6 GM/DL 11/29/2012 CHEM 14 6895710 GLUCOSE 112 MG/DL 11/29/2012 CHEM 14 0883146 BICARB 29 MMOL/L 11/29/2012 CHEM 14 9354394 ANION GAP 6 MEQ/L 11/29/2012 A1C HPLC 2599523 A1C HPLC 78088-1 5.5 % 11/29/2012 LIPID GRP HDL TEST 54 MG/DL 11/29/2012 LIPID GRP TRIG 77 MG/DL 11/29/2012 LIPID GRP TEST LDL 78 MG/DL 11/29/2012 LIPID GRP CHOL 147 MG/DL 11/29/2012 LIPID GRP RCHOL/HDL 2.72 RATIO 11/29/2012 FREE T4 9911799 FREE T4 1.23 NG/DL 11/29/2012 GFR CALC 1096654 GFR AA >60 ML/MIN 11/29/2012 GFR CALC 6540402 GFR NON-AA >60 ML/MIN 11/29/2012 CHEM 14 1054676 AST 23 U/L 08/07/2012 CHEM 14 5105878 ALT 34 IU/L 08/07/2012 CHEM 14 5662001 BUN 26 MG/DL 08/07/2012 CHEM 14 6579008 ALBUMIN 4.4 GM/DL 08/07/2012 CHEM 14 6769190 CHLORIDE 105 MMOL/L 08/07/2012 CHEM 14 2969942 BILI TOT 0.5 MG/DL 08/07/2012 CHEM 14 1754291 ALK PHOS 79 U/L 08/07/2012 CHEM 14 8397648 SODIUM 140 MMOL/L 08/07/2012 CHEM 14 9527868 CREATININE 0.71 MG/DL 08/07/2012 CHEM 14 7224004 CALCIUM 10.4 MG/DL 08/07/2012 CHEM 14 0737347 POTASSIUM 3.8 MMOL/L 08/07/2012 CHEM 14 7578074 PROT TOT 6.8 GM/DL 08/07/2012 CHEM 14 6529728 GLUCOSE 104 MG/DL 08/07/2012 CHEM 14 6985080 BICARB 27 MMOL/L 08/07/2012 CHEM 14 3699288 ANION GAP 8 MEQ/L 08/07/2012 A1C HPLC 1992676 A1C HPLC 98600-6 5.4 % 08/07/2012 FREE T4 1538092 FREE T4 1.11 NG/DL 08/07/2012 LIPID GRP HDL TEST 50 MG/DL 08/07/2012 LIPID GRP TRIG 127 MG/DL 08/07/2012 LIPID GRP TEST LDL 93 MG/DL 08/07/2012 LIPID GRP CHOL 168 MG/DL 08/07/2012 LIPID GRP RCHOL/HDL 3.36 RATIO 08/07/2012 CBC 6626221 WBC 8.7 10e9/L 08/07/2012 CBC 7434100 RBC 4.67 10e12/L 08/07/2012 CBC 6571168 HGB 14.4 g/dL 08/07/2012 CBC 0469664 HCT DET 42.8 % 08/07/2012 CBC 1992037 MCV 91.6 fL 08/07/2012 CBC 2109695 MCH 30.8 pg 08/07/2012 CBC 1356263 MCHC 33.6 g/dL 08/07/2012 CBC 5262277 PLT 271 10e9/L 08/07/2012 CBC 9454078 MPV 12.3 fL 08/07/2012 CBC 9568756 LARA % 50.6 % 08/07/2012 CBC 3079186 LY % 34.9 % 08/07/2012 CBC 1787848 MON % 9.1 % 08/07/2012 CBC 7651591 EOS % 5.1 % 08/07/2012 CBC 2604426 BASO % 0.3 % 08/07/2012 CBC 0480274 RDW 13.6 % 08/07/2012 CBC 3917344 ABS LARA 4.40 10e9/L 08/07/2012 CBC 3276815 ABS LYMPH 3.04 10e9/L 08/07/2012 CBC 0646353 ABS MONO 0.79 10e9/L 08/07/2012 CBC 1072007 ABS EOS 0.44 10e9/L 08/07/2012 CBC 2172176 ABS BASO 0.03 10e9/L 08/07/2012 CBC 1462366 RDW-SD 44.1 fL 08/07/2012 TSH 4125643 TSH 7.419 uIU/ML 08/07/2012 GFR CALC 4884705 GFR AA >60 ML/MIN 08/07/2012 GFR CALC 6321549 GFR NON-AA >60 ML/MIN 08/07/2012 A1C HPLC 1811510 A1C HPLC 17901-4 5.3 % 02/21/2012 TSH 8803308 TSH 0.832 uIU/ML 02/16/2012 FREE T4 9667724 FREE T4 1.04 NG/DL 02/16/2012 GFR CALC 5130627 GFR AA >60 ML/MIN 02/16/2012 GFR CALC 9249531 GFR NON-AA >60 ML/MIN 02/16/2012 BMP 6707048 GLUCOSE 112 MG/DL 02/16/2012 BMP 2796877 CREATININE 0.65 MG/DL 02/16/2012 BMP 8249849 BUN 17 MG/DL 02/16/2012 BMP 4594362 SODIUM 144 MMOL/L 02/16/2012 BMP 3306842 POTASSIUM 4.0 MMOL/L 02/16/2012 BMP 7278105 CHLORIDE 107 MMOL/L 02/16/2012 BMP 0393618 BICARB 29 MMOL/L 02/16/2012 BMP 2548943 ANION GAP 8 MEQ/L 02/16/2012 BMP 7735064 CALCIUM 9.5 MG/DL 02/16/2012 CBC 4636006 WBC 7.1 10e9/L 02/16/2012 CBC 9307727 RBC 4.47 10e12/L 02/16/2012 CBC 6956275 HGB 13.5 g/dL 02/16/2012 CBC 0156250 HCT DET 40.7 % 02/16/2012 CBC 5248319 MCV 91.1 fL 02/16/2012 CBC 4868465 MCH 30.2 pg 02/16/2012 CBC 4521407 MCHC 33.2 g/dL 02/16/2012 CBC 2979817 PLT 238 10e9/L 02/16/2012 CBC 0236140 MPV 11.4 fL 02/16/2012 CBC 9644100 LARA % 55.7 % 02/16/2012 CBC 0352257 LY % 29.6 % 02/16/2012 CBC 8193331 MON % 9.2 % 02/16/2012 CBC 9549614 EOS % 5.1 % 02/16/2012 CBC 1780247 BASO % 0.4 % 02/16/2012 CBC 5750032 RDW 13.0 % 02/16/2012 CBC 4601200 ABS LARA 3.95 10e9/L 02/16/2012 CBC 8464743 ABS LYMPH 2.10 10e9/L 02/16/2012 CBC 0375527 ABS MONO 0.65 10e9/L 02/16/2012 CBC 3687742 ABS EOS 0.36 10e9/L 02/16/2012 CBC 6501183 ABS BASO 0.03 10e9/L 02/16/2012 CBC 3810249 RDW-SD 42.4 fL 02/16/2012 URINALYSIS NONAUTO W/O SCOPE 64871 Specific [place] 1.015 DateTime(Free Text in Aprima) URINALYSIS NONAUTO W/O SCOPE 51118 PH 7 DateTime(Free Text in Aprima) URINALYSIS NONAUTO W/O SCOPE 34354 GLUCOSE neg DateTime(Free Text in Aprima) URINALYSIS NONAUTO W/O SCOPE 41642 Protein 1+ DateTime(Free Text in Aprima) URINALYSIS NONAUTO W/O SCOPE 04235 Blood neg DateTime(Free Text in Aprima) URINALYSIS NONAUTO W/O SCOPE 00769 Bilirubin neg DateTime(Free Text in Aprima) URINALYSIS NONAUTO W/O SCOPE 82617 Ketones neg DateTime(Free Text in Aprima) URINALYSIS NONAUTO W/O SCOPE 04634 Urobilinogen neg DateTime(Free Text in Aprima) URINALYSIS NONAUTO W/O SCOPE 71546 Nitrite postive DateTime(Free Text in Aprima) URINALYSIS NONAUTO W/O SCOPE 25947 Leukocytes 3+ DateTime(Free Text in Aprima) URINALYSIS NONAUTO W/O SCOPE 33554 Specific [place] 1.030 DateTime(Free Text in Aprima) URINALYSIS NONAUTO W/O SCOPE 56808 PH 6 DateTime(Free Text in Aprima) URINALYSIS NONAUTO W/O SCOPE 96186 GLUCOSE neg DateTime(Free Text in Aprima) URINALYSIS NONAUTO W/O SCOPE 05152 Protein neg DateTime(Free Text in Aprima) URINALYSIS NONAUTO W/O SCOPE 84352 Blood neg DateTime(Free Text in Aprima) URINALYSIS NONAUTO W/O SCOPE 56289 Bilirubin neg DateTime(Free Text in Aprima) URINALYSIS NONAUTO W/O SCOPE 88456 Ketones neg DateTime(Free Text in Aprima) URINALYSIS NONAUTO W/O SCOPE 98198 Urobilinogen neg DateTime(Free Text in Aprima) URINALYSIS NONAUTO W/O SCOPE 96506 Nitrite neg DateTime(Free Text in Aprima) URINALYSIS NONAUTO W/O SCOPE 79163 Leukocytes trace DateTime(Free Text in Aprima) URINALYSIS NONAUTO W/O SCOPE 43892 Specific [place] 1.005 DateTime(Free Text in Aprima) URINALYSIS NONAUTO W/O SCOPE 88976 PH 5 DateTime(Free Text in Aprima) URINALYSIS NONAUTO W/O SCOPE 53755 GLUCOSE neg DateTime(Free Text in Aprima) URINALYSIS NONAUTO W/O SCOPE 51953 Protein neg DateTime(Free Text in Aprima) URINALYSIS NONAUTO W/O SCOPE 80619 Blood neg DateTime(Free Text in Aprima) URINALYSIS NONAUTO W/O SCOPE 30721 Bilirubin neg DateTime(Free Text in Aprima) URINALYSIS NONAUTO W/O SCOPE 03978 Ketones neg DateTime(Free Text in Aprima) URINALYSIS NONAUTO W/O SCOPE 18229 Urobilinogen neg DateTime(Free Text in Aprima) URINALYSIS NONAUTO W/O SCOPE 47044 Nitrite neg DateTime(Free Text in Aprima) URINALYSIS NONAUTO W/O SCOPE 99271 Leukocytes neg DateTime(Free Text in Aprima) UA 60604 Specific [place] 1.030 DateTime(Free Text in Aprima) UA 24516 PH 5 DateTime(Free Text in Aprima) UA 02613 GLUCOSE neg DateTime(Free Text in Aprima) UA 73169 Protein trace DateTime(Free Text in Aprima) UA 67449 Blood large DateTime(Free Text in Aprima) UA 33194 Bilirubin neg DateTime(Free Text in Aprima) UA 28162 Ketones neg DateTime(Free Text in ) UA 59511 Urobilinogen neg DateTime(Free Text in ) UA 63297 Nitrite neg DateTime(Free Text in ) UA 43697 Leukocytes large DateTime(Free Text in ) Review [...] Codes Date URINALYSIS NONAUTO W/O SCOPE CPT-4: 83052 07/10/2018 TRIAMCINOLONE ACET INJ NOS CPT-4: J3301 05/28/2018 ROCEPHIN, PER 250 MG CPT- 4: J0696 05/28/2018 ROCEPHIN, PER 250 MG CPT- 4: J0696 01/19/2018 TRIAMCINOLONE ACET INJ NOS CPT-4: J3301 01/19/2018 PPPS, SUBSEQ VISIT CPT- 4: G0439 11/23/2017 TRIAMCINOLONE ACET INJ NOS CPT-4: J3301 06/27/2017 THER/PROPH/DIAG INJ SC/IM CPT-4: 17237 04/20/2017 TRIAMCINOLONE ACET INJ NOS CPT-4: J3301 04/20/2017 TRIAMCINOLONE ACET INJ NOS CPT-4: J3301 03/14/2017 ROCEPHIN, PER 250 MG CPT- 4: J0696 03/14/2017 DESTRUCT PREMALG LESION CPT-4: 80642 12/05/2016 DESTRUCT PREMALG LES 2-14 CPT-4: 72243 12/05/2016 URINALYSIS NONAUTO W/O SCOPE CPT-4: 65642 11/28/2016 ROCEPHIN, PER 250 MG CPT- 4: J0696 11/28/2016 PPPS, SUBSEQ VISIT CPT- 4: G0439 11/07/2016 THER/PROPH/DIAG INJ SC/IM CPT-4: 65315 11/07/2016 TRIAMCINOLONE ACET INJ NOS CPT-4: J3301 11/07/2016 ROCEPHIN, PER 250 MG CPT- 4: J0696 11/07/2016 THER/PROPH/DIAG INJ SC/IM CPT-4: 71137 08/15/2016 TRIAMCINOLONE ACET INJ NOS CPT-4: J3301 08/15/2016 ROCEPHIN, PER 250 MG CPT- 4: J0696 08/15/2016 URINALYSIS NONAUTO W/O SCOPE CPT-4: 11406 05/05/2016 ROCEPHIN, PER 250 MG CPT- 4: J0696 12/07/2015 TRIAMCINOLONE ACET INJ NOS CPT-4: J3301 11/24/2015 ROCEPHIN, PER 250 MG CPT- 4: J0696 11/24/2015 THER/PROPH/DIAG INJ SC/IM CPT-4: 47006 11/24/2015 THER/PROPH/DIAG INJ SC/IM CPT-4: 61428 08/27/2015 KETOROLAC TROMETHAMINE INJ CPT-4: J1885 08/27/2015 PROMETHAZINE HCL INJECTION CPT-4: J2550 08/27/2015 THER/PROPH/DIAG INJ SC/IM CPT-4: 96206 08/10/2015 TRIAMCINOLONE ACET INJ NOS CPT-4: J3301 08/10/2015 ROCEPHIN, PER 250 MG CPT- 4: J0696 08/10/2015 C WOUN RTS (CULTURE OTHR SPECIMN AEROBIC) CPT-4: 19703 07/28/2015 THER/PROPH/DIAG INJ SC/IM CPT-4: 31477 03/19/2015 TRIAMCINOLONE ACET INJ NOS CPT-4: J3301 03/19/2015 ROCEPHIN, PER 250 MG CPT- 4: J0696 06/23/2014 TRIAMCINOLONE ACET INJ NOS CPT-4: J3301 06/23/2014 INJ TRIGGER POINT 1/2 MUSCL CPT-4: 94250 06/05/2014 URINALYSIS NONAUTO W/O SCOPE CPT-4: 95776 02/11/2014 URINALYSIS NONAUTO W/O SCOPE CPT-4: 26490 10/15/2013 ROCEPHIN, PER 250 MG CPT- 4: J0696 09/24/2013 THER/PROPH/DIAG INJ SC/IM CPT-4: 86560 09/19/2013 ROCEPHIN, PER 250 MG CPT- 4: J0696 09/19/2013 PRESCRIP TRANSMIT VIA ERX SY CPT-4: G8553 08/05/2013 ROCEPHIN, PER 250 MG CPT- 4: J0696 07/10/2013 THER/PROPH/DIAG INJ SC/IM CPT-4: 05812 07/10/2013 TRIAMCINOLONE ACET INJ NOS CPT-4: J3301 07/10/2013 PRESCRIP TRANSMIT VIA ERX SY CPT-4: G8553 07/10/2013 12516 EST. PATIENT, LEVEL III CPT-4: 34630 06/03/2013 PRESCRIP TRANSMIT VIA ERX SY CPT-4: G8553 06/03/2013 PRESCRIP TRANSMIT VIA ERX SY CPT-4: G8553 05/07/2013 ROUTINE VENIPUNCTURE CPT- 4: 32350 04/30/2013 ROUTINE VENIPUNCTURE CPT- 4: 20475 11/29/2012 TRIAMCINOLONE ACET INJ NOS CPT-4: J3301 09/24/2012 THER/PROPH/DIAG INJ SC/IM CPT-4: 32978 09/24/2012 URINALYSIS NONAUTO W/O SCOPE CPT-4: 09946 09/24/2012 PRESCRIP TRANSMIT VIA ERX SY CPT-4: G8553 09/24/2012 PRESCRIP TRANSMIT VIA ERX SY CPT-4: G8553 09/10/2012 PRESCRIP TRANSMIT VIA ERX SY CPT-4: G8553 08/08/2012 ROUTINE VENIPUNCTURE CPT- 4: 14679 08/07/2012 ROUTINE VENIPUNCTURE CPT- 4: 12136 02/16/2012 URINALYSIS NONAUTO W/O SCOPE CPT-4: 23917 02/15/2012 ROCEPHIN, PER 250 MG CPT- 4: J0696 02/15/2012 PRESCRIP TRANSMIT VIA ERX SY CPT-4: G8553 02/15/2012 ROUTINE VENIPUNCTURE CPT- 4: 68785 11/08/2011 ROCEPHIN, PER 250 MG CPT- 4: J0696 07/14/2011 THER/PROPH/DIAG INJ SC/IM CPT-4: 22627 07/14/2011 Influenza Virus Vaccine, Split Virus, >3 Yrs, IM CPT-4: 20649 05/23/2011 IMMUNIZATION ADMIN CPT- 4: 14796 05/23/2011 THER/PROPH/DIAG INJ SC/IM CPT-4: 14520 05/03/2011 ROCEPHIN, PER 250 MG CPT- 4: J0696 05/03/2011 TRIAMCINOLONE ACET INJ NOS CPT-4: J3301 05/03/2011 Vital Signs Date Vital 11/16/2018 Blood Pressure 1: 168/100 Code: 8480-6 Heart Rate 1: 74 bpm SpO2: 96% 11/13/2018 Blood Pressure 1: 184/98 Code: 8480-6 BMI: 32.1 Code: 35550-6 Heart Rate 1: 68 bpm Height: 4'11" SpO2: 96% Weight: 159 lbs 10/30/2018 Blood Pressure 1: 158/98 Code: 8480-6 BMI: 31.7 Code: 68200-3 Heart Rate 1: 80 bpm Height: 4'11" SpO2: 96% Weight: 157 lbs 10/08/2018 Blood Pressure 1: 140/80 Code: 8480-6 BMI: 32.1 Code: 63863-5 Heart Rate 1: 92 bpm Height: 4'11" SpO2: 103% Weight: 159 lbs 07/16/2018 Blood Pressure 1: 142/80 Code: 8480-6 BMI: 31.1 Code: 08639-8 Heart Rate 1: 78 bpm Height: 4'11" SpO2: 98% Weight: 154 lbs 07/10/2018 Blood Pressure 1: 156/82 Code: 8480-6 BMI: 31.1 Code: 98361-7 Heart Rate 1: 63 bpm Height: 4'11" SpO2: 99% Weight: 154 lbs 05/28/2018 Blood Pressure 1: 142/80 Code: 8480-6 Heart Rate 1: 82 bpm Height: SpO2: 97% Temperature: 35.9 (C) / 96.6 (F) Weight: 02/07/2018 Height: Weight: 01/19/2018 Blood Pressure 1: 128/76 Code: 8480-6 BMI: 31.2 Code: 21089-2 Heart Rate 1: 71 bpm Height: 4'11" SpO2: 96% Temperature: 36.5 (C) / 97.7 (F) Weight: 154 lbs 8 oz 11/23/2017 Blood Pressure 1: 146/80 Code: 8480-6 BMI: 31.7 Code: 95181-1 Heart Rate 1: 64 bpm Height: 4'11" SpO2: 97% Waist Measure (cm): 89 cm Weight: 157 lbs 09/12/2017 Blood Pressure 1: 140/86 Code: 8480-6 Heart Rate 1: 62 bpm SpO2: 96% Temperature: 36.6 (C) / 97.8 (F) Weight: 153 lbs 07/25/2017 Blood Pressure 1: 140/72 Code: 8480-6 BMI: 31.3 Code: 68424-6 Heart Rate 1: 76 bpm Height: 4'11" SpO2: 97% Temperature: 37.2 (C) / 99.0 (F) Weight: 155 lbs 06/27/2017 Blood Pressure 1: 144/84 Code: 8480-6 BMI: 31.1 Code: 98671-6 Heart Rate 1: 63 bpm Height: 4'11" SpO2: 99% Temperature: 36.4 (C) / 97.6 (F) Weight: 154 lbs 05/08/2017 Blood Pressure 1: 142/86 Code: 8480-6 BMI: 30.9 Code: 12634-7 Height: 4'11" Temperature: 36.3 (C) / 97.4 (F) Weight: 153 lbs 03/14/2017 Blood Pressure 1: 146/82 Code: 8480-6 BMI: 30.9 Code: 85358-3 Heart Rate 1: 64 bpm Height: 4'11" SpO2: 94% Weight: 153 lbs 02/20/2017 Blood Pressure 1: 142/80 Code: 8480-6 BMI: 30.9 Code: 10916-3 Heart Rate 1: 75 bpm Height: 4'11" SpO2: 97% Weight: 153 lbs 02/06/2017 Blood Pressure 1: 138/90 Code: 8480-6 BMI: 31.5 Code: 30856-8 Heart Rate 1: 61 bpm Height: 4'11" SpO2: 98% Weight: 156 lbs 12/05/2016 Blood Pressure 1: 122/72 Code: 8480-6 Heart Rate 1: 59 bpm Height: 4'11" SpO2: 98% Weight: 11/28/2016 Blood Pressure 1: 154/86 Code: 8480-6 BMI: 31.3 Code: 40422-3 Heart Rate 1: 64 bpm Height: 4'11" SpO2: 94% Temperature: 36.2 (C) / 97.2 (F) Weight: 155 lbs 11/07/2016 Blood Pressure 1: 128/64 Code: 8480-6 BMI: 31.5 Code: 66892-2 Heart Rate 1: 59 bpm Height: 4'11" SpO2: 97% Weight: 156 lbs 08/15/2016 Blood Pressure 1: 110/62 Code: 8480-6 BMI: 31.5 Code: 19336-5 Heart Rate 1: 76 bpm Height: 4'11" SpO2: 97% Weight: 156 lbs 06/07/2016 Blood Pressure 1: 120/80 Code: 8480-6 BMI: 32.9 Code: 97102-4 Heart Rate 1: 63 bpm Height: 4'11" SpO2: 93% Temperature: 36.5 (C) / 97.7 (F) Weight: 163 lbs 03/15/2016 Blood Pressure 1: 90/42 Code: 8480-6 Heart Rate 1: 65 bpm SpO2: 94% 03/14/2016 Blood Pressure 1: 188/110 Code: 8480-6 Heart Rate 1: 68 bpm SpO2: 96% 02/22/2016 Blood Pressure 1: 158/80 Code: 8480-6 BMI: 32.7 Code: 31673-2 Heart Rate 1: 71 bpm Height: 4'11" SpO2: 95% Weight: 162 lbs 12/07/2015 Blood Pressure 1: 140/88 Code: 8480-6 BMI: 32.9 Code: 83014-9 Heart Rate 1: 99 bpm Height: 4'11" SpO2: 94% Temperature: 35.9 (C) / 96.6 (F) Weight: 163 lbs 11/24/2015 Blood Pressure 1: 144/78 Code: 8480-6 BMI: 33.7 Code: 12311-6 Heart Rate 1: 60 bpm Height: 4'11" SpO2: 98% Temperature: 36.6 (C) / 97.9 (F) Weight: 167 lbs 08/27/2015 Blood Pressure 1: 164/82 Code: 8480-6 BMI: 32.3 Code: 18692-9 Heart Rate 1: 60 bpm Height: 4'11" SpO2: 93% Weight: 160 lbs 08/10/2015 Blood Pressure 1: 130/60 Code: 8480-6 BMI: 32.5 Code: 08169-0 Heart Rate 1: 64 bpm Height: 4'11" SpO2: 97% Weight: 161 lbs 07/28/2015 Blood Pressure 1: 124/68 Code: 8480-6 BMI: 32.5 Code: 03209-5 Heart Rate 1: 69 bpm Height: 4'11" SpO2: 97% Weight: 161 lbs 06/11/2015 Blood Pressure 1: 148/80 Code: 8480-6 BMI: 32.9 Code: 61562-2 Heart Rate 1: 70 bpm Height: 4'11" SpO2: 94% Weight: 163 lbs 03/19/2015 Blood Pressure 1: 150/102 Code: 8480-6 Blood Pressure 2: 152/92 Code: 8480-6 BMI: 32.5 Code: 31614-4 Heart Rate 1: 71 bpm Height: 4'11" SpO2: 96% Weight: 161 lbs 01/07/2015 Blood Pressure 1: 126/84 Code: 8480-6 Heart Rate 1: 80 bpm Height: 4'11" 09/23/2014 Blood Pressure 1: 112/72 Code: 8480-6 BMI: 33.9 Code: 54055-7 Heart Rate 1: 72 bpm Height: 4'11" Weight: 168 lbs 08/05/2014 Blood Pressure 1: 140/86 Code: 8480-6 BMI: 33.3 Code: 15630-5 Height: 4'11" Weight: 165 lbs 06/23/2014 Blood Pressure 1: 132/70 Code: 8480-6 BMI: 32.9 Code: 97680-7 Heart Rate 1: 58 bpm Height: 4'11" Temperature: 36.0 (C) / 96.8 (F) Weight: 163 lbs 06/05/2014 Blood Pressure 1: 121/85 Code: 8480-6 BMI: 34.3 Code: 61033-2 Height: 4'11" Weight: 170 lbs 04/03/2014 Blood Pressure 1: 128/80 Code: 8480-6 Heart Rate 1: 88 bpm Weight: 167 lbs 03/07/2014 Blood Pressure 1: 122/82 Code: 8480-6 BMI: 33.9 Code: 90599-9 Heart Rate 1: 68 bpm Height: 4'11" Weight: 168 lbs 11/21/2013 Blood Pressure 1: 100/58 Code: 8480-6 BMI: 33.7 Code: 25094-6 Heart Rate 1: 64 bpm Height: 4'11" Weight: 167 lbs 09/24/2013 Blood Pressure 1: 148/88 Code: 8480-6 Heart Rate 1: 68 bpm Weight: 09/19/2013 Blood Pressure 1: 120/80 Code: 8480-6 BMI: 33.9 Code: 91772-7 Heart Rate 1: 80 bpm Height: 4'11" Temperature: 36.9 (C) / 98.5 (F) Weight: 168 lbs 08/05/2013 Blood Pressure 1: 128/80 Code: 8480-6 BMI: 34.3 Code: 43824-5 Heart Rate 1: 64 bpm Height: 4'11" Temperature: 36.2 (C) / 97.2 (F) Weight: 170 lbs 07/10/2013 Blood Pressure 1: 120/84 Code: 8480-6 BMI: 36.0 Code: 35993-0 Heart Rate 1: 90 bpm Height: 4'11" SpO2: 97% Temperature: 36.8 (C) / 98.2 (F) Weight: 178 lbs 06/03/2013 Blood Pressure 1: 136/94 Code: 8480-6 BMI: 34.7 Code: 77887-5 Heart Rate 1: 68 bpm Height: 4'11" Temperature: 36.7 (C) / 98.0 (F) Weight: 172 lbs 05/13/2013 Blood Pressure 1: 132/90 Code: 8480-6 Heart Rate 1: 68 bpm 05/07/2013 Blood Pressure 1: 168/100 Code: 8480-6 BMI: 34.3 Code: 66984-1 Heart Rate 1: 76 bpm Height: 4'11" Weight: 170 lbs 12/03/2012 Blood Pressure 1: 142/78 Code: 8480-6 BMI: 33.5 Code: 51029-6 Heart Rate 1: 76 bpm Height: 4'11" Weight: 166 lbs 09/24/2012 Blood Pressure 1: 116/70 Code: 8480-6 Heart Rate 1: 68 bpm Respiratory Rate: 16 bpm Temperature: 36.9 (C) / 98.4 (F) Weight: 162 lbs 09/10/2012 Blood Pressure 1: 116/80 Code: 8480-6 BMI: 33.7 Code: 19183-4 Heart Rate 1: 76 bpm Height: 4'11" [...] 1: 149/85 Code: 8480-6 BMI: 32.9 Code: 30691-1 Heart Rate 1: 79 bpm Height: 4'11" Weight: 164 lbs 05/03/2011 Blood Pressure 1: 122/79 Code: 8480-6 BMI: 30.8 Code: 02742-2 Heart Rate 1: 72 bpm Height: 5'1" Weight: 163 lbs 04/25/2011 Blood Pressure 1: 137/84 Code: 8480-6 BMI: 31.0 Code: 47281-7 Heart Rate 1: 63 bpm Height: 5'1" [...] surg in december. then took trip to [facility] to see mother and has had [...] Quality chronic 08/01/2011 states went shopping on [employer] over night without taking any of medications [...] data Encounters Encounter Performer Location Codes Date ([id number]) Miscellaneous no charge Diagnosis: Essential (primary) hypertension[ICD10: I10] Melba Goldman MD, [facility] CPT-4: 02081 11/16/2018 ([id number]) 98795 EST. PATIENT, LEVEL III Diagnosis: Essential (primary) hypertension[ICD10: I10] Shahida Goldman MD, [facility] CPT-4: 59640 11/13/2018 ([id number]) 73890 EST. PATIENT, LEVEL IV Diagnosis: Essential (primary) hypertension[ICD10: I10] Diagnosis: Mixed hyperlipidemia[ICD10: E78.2] Diagnosis: Hypothyroidism, unspecified[ICD10: E03.9] Shahida Goldman MD, [facility] CPT-4: 78026 10/30/2018 [id number] EST. PATIENT, LEVEL III Diagnosis: Other mucopurulent conjunctivitis, bilateral[ICD10: H10.023] Diagnosis: Other allergic rhinitis[ICD10: J30.89] Shahida Goldman MD, [facility] CPT-4: 56004 10/08/2018 69801 EST. PATIENT, LEVEL III Diagnosis: Essential (primary) hypertension[ICD10: I10] Diagnosis: Generalized anxiety disorder[ICD10: F41.1] Isabelle Goldman MD, [facility] CPT-4: 27025 07/16/2018 ([id number]) 53395 EST. PATIENT, LEVEL III Diagnosis: Acute recurrent maxillary sinusitis[ICD10: J01.01] Diagnosis: Frequency of micturition[ICD10: R35.0] Diagnosis: Low back pain[ICD10: M54.5] Shahida Goldman MD, [facility] CPT-4: 06926 07/10/2018 ([id number]) 70565 EST. PATIENT, LEVEL III Diagnosis: Acute recurrent maxillary sinusitis[ICD10: J01.01] Shahida Goldman MD, [facility] CPT-4: 28391 05/28/2018 ([id number]) Miscellaneous no charge Diagnosis: Laceration without foreign body, left lower leg, subsequent encounter[ICD10: S81.812D] Diagnosis: Laceration without foreign body, right lower leg, subsequent encounter[ICD10: S81.811D] Isabelle Goldman MD, [facility] CPT-4: 40770 02/08/2018 17890 EST. PATIENT, LEVEL III Diagnosis: Cellulitis of left lower limb[ICD10: L03.116] Diagnosis: Cellulitis of right lower limb[ICD10: L03.115] Diagnosis: Laceration without foreign body, left lower leg, initial encounter[ICD10: S81.812A] Diagnosis: Laceration without foreign body, right lower leg, initial encounter[ICD10: S81.811A] Isabelle Goldman MD, [facility] CPT-4: 43054 02/07/2018 ([id number]) 15920 EST. PATIENT, LEVEL IV Diagnosis: Primary generalized (osteo)arthritis[ICD10: M15.0] Diagnosis: Acute recurrent maxillary sinusitis[ICD10: J01.01] Diagnosis: Low back pain[ICD10: M54.5] Diagnosis: Other allergic rhinitis[ICD10: J30.89] Diagnosis: Obstructive sleep apnea (adult) (pediatric)[ICD10: G47.33] Shahida Goldman MD, [facility] CPT-4: 59819 01/19/2018 40743 EST. PATIENT, LEVEL IV Diagnosis: Diarrhea, unspecified[ICD10: R19.7] Diagnosis: Generalized abdominal pain[ICD10: R10.84] Diagnosis: Other allergic rhinitis[ICD10: J30.89] Diagnosis: Other acute sinusitis[ICD10: J01.80] Isabelle Goldman MD, [facility] CPT- 4: 30728 09/12/2017 61291 EST. PATIENT, LEVEL III Diagnosis: Acute laryngopharyngitis[ICD10: J06.0] Diagnosis: Other allergic rhinitis[ICD10: J30.89] Diagnosis: Cough[ICD10: R05] Diagnosis: Wheezing[ICD10: R06.2] Isabelle Goldman MD, [facility] CPT-4: 37208 07/25/2017 ([id number]) 89023 EST. PATIENT, LEVEL IV Diagnosis: Acute recurrent maxillary sinusitis[ICD10: J01.01] Diagnosis: Cervicalgia[ICD10: M54.2] Diagnosis: Diarrhea, unspecified[ICD10: R19.7] Shahida Goldman MD, [facility] CPT-4: 46225 06/27/2017 ([id number]) 55947 EST. PATIENT, LEVEL III Diagnosis: Chronic maxillary sinusitis[ICD10: J32.0] Diagnosis: Gastro-esophageal reflux disease without esophagitis[ICD10: K21.9] Shahida Goldman MD, [facility] CPT-4: 90887 05/08/2017 ([id number]) 54569 EST. PATIENT, LEVEL III Diagnosis: Acute recurrent maxillary sinusitis[ICD10: J01.01] Shahida Goldman MD, [facility] CPT-4: 33269 03/14/2017 75470 EST. PATIENT, LEVEL IV Diagnosis: Epigastric pain[ICD10: R10.13] Diagnosis: Left upper quadrant pain[ICD10: R10.12] Diagnosis: Left lower quadrant pain[ICD10: R10.32] Isabelle Goldman MD, [facility] CPT-4: 53420 02/20/2017 ([id number]) 73814 EST. PATIENT, LEVEL IV Diagnosis: Generalized anxiety disorder[ICD10: F41.1] Diagnosis: Major depressive disorder, recurrent, moderate[ICD10: F33.1] Diagnosis: Left upper quadrant pain[ICD10: R10.12] Diagnosis: Epigastric pain[ICD10: R10.13] Diagnosis: Actinic keratosis[ICD10: L57.0] Melba Goldman MD, [facility] CPT-4: 14060 02/06/2017 ([id number]) 80398 EST. PATIENT, LEVEL III Diagnosis: Actinic keratosis[ICD10: L57.0] Diagnosis: Major depressive disorder, recurrent, moderate[ICD10: F33.1] Melba Goldman MD, [facility] CPT-4: 01617 12/05/2016 ([id number]) 05168 EST. PATIENT, LEVEL III Diagnosis: Acute recurrent maxillary sinusitis[ICD10: J01.01] Diagnosis: Dysuria[ICD10: R30.0] Shahida Goldman MD, [facility] CPT-4: 85085 11/28/2016 20366 EST. PATIENT, LEVEL IV Diagnosis: Other acute sinusitis[ICD10: J01.80] Diagnosis: Acute laryngopharyngitis[ICD10: J06.0] Diagnosis: Other allergic rhinitis[ICD10: J30.89] Isabelle Goldman MD, [facility] CPT- 4: 32290 08/15/2016 ([id number]) 64963 EST. PATIENT, LEVEL III Diagnosis: Acute recurrent maxillary sinusitis[ICD10: J01.01] Diagnosis: Low back pain[ICD10: M54.5] Shahida Goldman MD, [facility] CPT-4: 33102 06/07/2016 ([id number]) Miscellaneous no charge Diagnosis: Essential (primary) hypertension[ICD10: I10] Shahida Goldman MD, [facility] CPT-4: 26074 03/15/2016 07756 EST. PATIENT, LEVEL IV Diagnosis: Essential (primary) hypertension[ICD10: I10] Diagnosis: Headache[ICD10: R51] Diagnosis: Generalized anxiety disorder[ICD10: F41.1] Shahida Goldman MD, [facility] CPT-4: 92542 03/14/2016 00716 EST. PATIENT, LEVEL III Diagnosis: Laceration without foreign body, left lower leg, initial encounter[ICD10: S81.812A] Isabelle Goldman MD, [facility] CPT-4: 30786 02/22/2016 ([id number]) 43410 EST. PATIENT, LEVEL III Diagnosis: Acute recurrent maxillary sinusitis[ICD10: J01.01] Diagnosis: Cough[ICD10: R05] Diagnosis: Allergic rhinitis due to pollen[ICD10: J30.1] Shahida Goldman MD, [facility] CPT-4: 06909 12/07/2015 ([id number] EST. PATIENT, LEVEL IV Diagnosis: Essential (primary) hypertension[ICD10: I10] Diagnosis: Acute recurrent maxillary sinusitis[ICD10: J01.01] Diagnosis: Generalized anxiety disorder[ICD10: F41.1] Diagnosis: Cervicalgia[ICD10: M54.2] Diagnosis: Generalized intra-abdominal and pelvic swelling, mass and lump[ICD10: R19.07] Melba Goldman MD, [facility] CPT-4: 34289 11/24/2015 86167 EST. PATIENT, LEVEL III Diagnosis: Other migraine, intractable, without status migrainosus[ICD10: G43.819] Isabelle Goldman MD, [facility] CPT-4: 78344 08/27/2015 01044 EST. PATIENT, LEVEL III Diagnosis: Acute recurrent maxillary sinusitis[ICD10: J01.01] Diagnosis: Candidal stomatitis[ICD10: B37.0] Diagnosis: Acute laryngopharyngitis[ICD10: J06.0] Isabelle Goldman MD, [facility] CPT- 4: 42523 08/10/2015 24402 EST. PATIENT, LEVEL III Diagnosis: Superficial foreign body of left hand, initial encounter[ICD10: S60.552A] Melba Goldman MD, [facility] CPT-4: 69028 07/28/2015 ([id number]) 48928 EST. PATIENT, LEVEL III Diagnosis: Essential (primary) hypertension[ICD10: I10] Diagnosis: Tinea cruris[ICD10: B35.6] Diagnosis: Abnormal levels of other serum enzymes[ICD10: R74.8] Shahida Goldman MD, [facility] CPT-4: 55402 06/11/2015 ([id number]) 97313 EST. PATIENT, LEVEL IV Diagnosis: ESSENTIAL HYPERTENSION[ICD9: 401.9] Diagnosis: Hypothyroid[ICD9: 244.9] Diagnosis: ALLERGIC RHINITIS[ICD9: 477.9] Diagnosis: Anxiety[ICD9: 300.00] Diagnosis: Sleep apnea[ICD9: 780.57] Shahida Goldman MD, [facility] CPT-4: 43783 03/19/2015 ([id number]) 20006 EST. PATIENT, LEVEL III Diagnosis: ACUTE SINUSITIS[ICD9: 461.9] Celi Goldman MD, [facility] CPT-4: 98162 01/07/2015 ([id number]) 86955 EST. PATIENT, LEVEL III Diagnosis: Conjunctivitis[ICD9: 372.30] Shahida Goldman MD, [facility] CPT-4: 74991 09/23/2014 12504 EST. PATIENT, LEVEL II Diagnosis: Noninfected skin tear of leg[ICD9: 891.0] Shahida Goldman MD, [facility] CPT-4: 04306 08/05/2014 ([id number]) 38167 EST. PATIENT, LEVEL III Diagnosis: Chronic maxillary sinusitis[ICD9: 473.0] Shahida Goldman MD, [facility] CPT-4: 49420 06/23/2014 30900 EST. PATIENT, LEVEL II Diagnosis: Headache[ICD9: 784.0] Shahida Goldman MD, [facility] CPT-4: 41925 06/05/2014 ([id number]) 21945 EST. PATIENT, LEVEL III Diagnosis: Abrasion of right leg[ICD9: 916.0] Diagnosis: Headache[ICD9: 784.0] Diagnosis: ALLERGIC RHINITIS[ICD9: 477.9] Shahida Goldman MD, [facility] CPT-4: 57488 04/03/2014 66173 EST. PATIENT, LEVEL II Diagnosis: Tinea corporis[ICD9: 110.5] Diagnosis: Exposure to scabies[ICD9: V01.89] Shahida Goldman MD, [facility] CPT- 4: 42912 03/07/2014 ([id number]) 43866 EST. PATIENT, LEVEL III Diagnosis: ESSENTIAL HYPERTENSION[SNOMED: 54077904] Diagnosis: OSTEOARTH NOS-UNSPEC[ICD9: 715.90] Diagnosis: Lumbago[ICD9: 724.2] Diagnosis: Cervicalgia[ICD9: 723.1] Shahida Goldman MD, [facility] CPT-4: 52361 11/21/2013 ([id number]) 64848 EST. PATIENT, LEVEL III Diagnosis: DEPRESSIVE DISORDER NEC[ICD9: 311] Diagnosis: Paronychia[ICD9: 681.9] Melba Goldman MD, [facility] CPT-4: 91680 09/24/2013 ([id number]) 60003 EST. PATIENT, LEVEL III Diagnosis: Paronychia[ICD9: 681.9] Diagnosis: Cellulitis[ICD9: 682.9] Melba Goldman MD, [facility] CPT-4: 66329 09/19/2013 ([id number]) 73731 EST. PATIENT, LEVEL III Diagnosis: Conjunctivitis[ICD9: 372.30] Diagnosis: Thrush[ICD9: 112.0] Shahida Goldman MD, [facility] CPT-4: 10214 08/05/2013 ([id number]) 20074 EST. PATIENT, LEVEL III Diagnosis: ACUTE MAXILLARY SINUSITIS[ICD9: 461.0] Diagnosis: COUGH[ICD9: 786.2] Diagnosis: Insomnia[ICD9: 780.52] Diagnosis: ESOPHAGEAL REFLUX[ICD9: 530.81] Melba Goldman MD, [facility] CPT-4: 92021 07/10/2013 ([id number]) Miscellaneous no charge Diagnosis: ESSENTIAL HYPERTENSION[SNOMED: 50573597] Melba Goldman MD, [facility] CPT-4: 63723 05/13/2013 ([id number]) 43997 EST. PATIENT, LEVEL IV Diagnosis: ESSENTIAL HYPERTENSION[SNOMED: 22453244] Diagnosis: HYPOTHYROIDISM[ICD9: 244.9] Diagnosis: OSTEOARTH NOS-UNSPEC[ICD9: 715.90] Melba Goldman MD, [facility] CPT- 4: 91257 05/07/2013 ([id number]) 60815 EST. PATIENT, LEVEL IV Diagnosis: Osteoarthritis[ICD9: 715.90] Diagnosis: Knee pain, bilateral[ICD9: 719.46] Diagnosis: Hip pain[ICD9: 719.45] Melba Goldman MD, [facility] CPT-4: 74992 12/03/2012 ([id number]) 78537 EST. PATIENT, LEVEL III Diagnosis: Thrush[ICD9: 112.0] Melba Goldman MD, [facility] CPT-4: 69490 09/24/2012 ([id number]) 97553 EST. PATIENT, LEVEL IV Diagnosis: ESSENTIAL HYPERTENSION[SNOMED: 41570765] Diagnosis: Thrush[ICD9: 112.0] Diagnosis: Sleep apnea[ICD9: 780.57] Melba Goldman MD, [facility] CPT-4: 89662 09/10/2012 ([id number]) 92192 EST. PATIENT, LEVEL IV Diagnosis: Esophageal reflux[ICD9: 530.81] Diagnosis: Hypothyroid[ICD9: 244.9] Diagnosis: JOINT PAIN-MULT JOINTS[ICD9: 719.49] Diagnosis: ALLERGIC RHINITIS[ICD9: 477.9] Melba Goldman MD, [facility] CPT-4: 44825 08/08/2012 ([id number]) 04359 EST. PATIENT, LEVEL IV Diagnosis: Urinary frequency[ICD9: 788.41] Diagnosis: EDEMA[ICD9: 782.3] Diagnosis: HYPOTHYROIDISM[ICD9: 244.9] Diagnosis: Fatigue[ICD9: 780.79] Melba Goldman MD, [facility] CPT-4: 38341 02/15/2012 ([id number]) 46456 EST. PATIENT, LEVEL IV Diagnosis: Abdominal pain[ICD9: 789.00] Diagnosis: Fatigue[ICD9: 780.79] Diagnosis: Nausea[ICD9: 787.02] Melba Goldman MD, [facility] CPT-4: 08921 11/10/2011 47886 EST. PATIENT, LEVEL IV Diagnosis: ESSENTIAL HYPERTENSION[SNOMED: 28856357] Diagnosis: DIARRHEA[ICD9: 787.91] Diagnosis: DEPRESSIVE DISORDER NEC[ICD9: 311] Diagnosis: Irritable bowel disease[ICD9: 564.1] Melba Goldman MD, [facility] CPT- 4: 71435 08/01/2011 27799 EST. PATIENT, LEVEL III Diagnosis: ACUTE SINUSITIS[ICD9: 461.9] Diagnosis: Cough[ICD9: 786.2] Shahida Goldman MD, [facility] CPT-4: 48166 07/14/2011 76162 EST. PATIENT, LEVEL IV Diagnosis: VACCIN FOR INFLUENZA[ICD9: V04.81] Diagnosis: ESSENTIAL HYPERTENSION[SNOMED: 71596948] Diagnosis: GENERALIZED ANXIETY DISEASE[ICD9: 300.02] Diagnosis: SLEEP DISTURBANCES[ICD9: 780.50] Shahida Goldman MD, [facility] CPT- 4: 73605 05/23/2011 28362 EST. PATIENT, LEVEL III Diagnosis: ACUTE SINUSITIS[ICD9: 461.9] Diagnosis: ALLERGIC RHINITIS[ICD9: 477.9] Diagnosis: Cough[ICD9: 786.2] Shahida Goldman MD, [facility] CPT-4: 94094 05/03/2011 91050 EST. PATIENT, LEVEL IV Diagnosis: ESSENTIAL HYPERTENSION[SNOMED: 09126296] Diagnosis: DEPRESSIVE DISORDER NEC[ICD9: 311] Diagnosis: Fatigue[ICD9: 780.79] Shahida Goldman MD, [facility] CPT-4: 13101 04/25/2011 Plan of Care Planned Activity Notes Codes Status Date Patient Education: Patient Medication Summary Completed 11/16/2018 [...] acute concerns. 11/13/2018 Appointment: Shahida Manzo WPtel: [address] [place], [place] [phone] (15 min) Moderate 11/13/2018 Patient Education: Patient [...] call for acute concerns. Hyperlipidemia-check fasting labs Loqinznlevntti-akyhvbq-iftyw labs 10/30/2018 Visit Plan: Hypertension - uncontrolled [...] call for acute concerns. Hyperlipidemia-check fasting labs Fqjwdaowddmquq-hralbqw-snijw labs 10/30/2018 Appointment: Shahida Manzo WPtel: [phone] [phone] (30 min) Complex 10/30/2018 Patient Education: Patient Medication Summary Completed 10/30/2018 Visit Plan: Conjunctivitis - rx for eye drops/lube sent electronically to the patient's pharmacy. The patient has been instructed to cleanse affected eye with warm washcloth, then place medication into affected eye four times daily. 10/08/2018 Appointment: Shahida Manzo WPtel: [phone] (30 min) Complex 10/08/2018 Patient Education: Patient Medication Summary Completed 10/08/2018 [facility]ment[phone] [phone] (15 min) Moderate 07/30/2018 Visit Plan: [...] acute concerns. 07/16/2018 Appointment: Isabelle Orozco WPtel: [facility] [phone] (15 min) Moderate 07/16/2018 Patient Education: [...] of over-medication. 07/10/2018 Appointment: Shahida Manzo WPtel: [phone] (15 min) Moderate 07/10/2018 Patient Education: Patient Medication Summary Completed 07/10/2018 Patient Education: Back Pain Completed 07/10/2018 Visit Plan: Sinusitis - Pt has acute infection - pain in face, maxillary region, Pt informed to use decongestant, RX given to patient, sinus rinses also recommended. Call if symptoms do not show improvement. 05/28/2018 Appointment: Shahida Manzo WPtel: [phone] (30 min) Complex 05/28/2018 Patient Education: [...] concerns. 02/07/2018 Appointment: [id number] [place] (15 min) Moderate 02/07/2018 Patient [...] fatigue 01/19/2018 Appointment: Shahida Manzo WPtel: [phone] [id number] (15 min) Moderate 01/19/2018 Patient Education: Patient [...] surrogate. 11/23/2017 Appointment: [phone] [facility] - Annual Wellness Visit 11/23/2017 Patient [...] Isabelle Orozco WPtel: [facility] (15 min) Moderate 09/12/2017 Patient Education: [...] Isabelle Orozco WPtel: [facility] [id number] ([facility] Complex 07/25/2017 Patient Education: [...] available 06/27/2017 Appointment: Shahida Manzo WPtel: [phone] [phone] (15 min) Moderate 06/27/2017 Patient Education: [...] not improving. 05/08/2017 Appointment: Shahida Manzo WPtel: [phone] (15 min) Moderate 05/08/2017 Patient Education: Patient [...] Shahida Manzo WPtel: [phone] (15 min) Moderate 03/14/2017 Patient Education: Patient Medication Summary Completed 03/14/2017 Appointment: Shahida Manzo WPtel: [phone] [place] (15 min) Moderate 02/21/2017 Visit Plan: [...] improving. 02/20/2017 Appointment: Isabelle Orozco WPtel: [phone] [facility] (30 min) Complex 02/20/2017 Patient Education: Patient [...] use 02/06/2017 Appointment: Melba Goldman WPtel: [phone] [facility] (15 min) Moderate 02/06/2017 Patient Education: Patient [...] this patient. 12/05/2016 Appointment: [facility] [facility] 12/05/2016 Patient Education: Patient Medication Summary Completed 12/05/2016 Visit Plan: Sinusitis - Pt has acute infection - pain in face, maxillary region, Pt informed to use decongestant, RX given to patient, sinus rinses also recommended. Call if symptoms do not show improvement. Dysuria- culture urine 11/28/2016 Appointment: [phone] (15 min) Moderate 11/28/2016 Patient Education: [...] control. 11/07/2016 Appointment: Isabel[facility]rozco [facility]el[phone] [facility] - Annual Wellness Visit 11/07/2016 Patient [...] Isabelle Orozco WPtel: [facility] (15 min) Moderate 08/15/2016 Patient Education: [...] use. 06/07/2016 Appointment: Shahida Manzo [facility]Ptel: [phone] (10 min) Simple 06/07/2016 Patient Education: [...] today 03/14/2016 Appointment: [facility]el[phone] (15 min) Moderate 03/14/2016 Patient Education: Patient Medication Summary Completed 03/14/2016 Care Plan: COMPLETE CBC AUTOMATED LOINC : 29332-0 Pending 03/14/2016 Visit Plan: Cellulitis - The patient was instructed in appropriate wound care. The patient was instructed to use the antibiotic ointment as per RX. The patient is to call for any change in symptoms, increase in size of the lesion, increase in pain. 02/22/2016 Appointment: Isabelle Orozco [facility]Ptel: [phone] (15 min) Moderate 02/22/2016 Patient Education: [...] to follow up with specialist at [address] - she needs to pursue treatment. Anxietly - medications unchanged. colonoscopy with dr. dai 11/24/2015 Appointment: Melba Goldman WPtel: [facility] ([facility] min) [facility] 11/24/2015 Patient Education: Patient Medication Summary Completed 11/24/2015 Patient Education: Obesity Completed 11/24/2015 Patient Education: Hypertension Completed 11/24/2015 Patient Education: .Cervicalgia Neck Pain Completed 11/24/2015 Care Plan: Referral Order SNOMED-CT : [id number] Ordered 11/24/2015 Visit Plan: Acute Migraine - [...] to monitor 06/11/2015 Appointment: Shahida Manzo WPtel: [address] [place], [place] [phone] (15 min) Moderate 06/11/2015 Patient Education: Patient [...] OFFICE Sleep apnea-patient needs new CPAP-will contact [facility] patient Pt reports that she uses her [...] OFFICE Sleep apnea-patient needs new CPAP-will contact [facility] patient Pt reports that she uses her [...] OFFICE Sleep apnea-patient needs new CPAP-will contact [facility] patient 03/19/2015 Appointment: (15 min) Moderate 03/19/2015 [...] Medication Summary Completed 01/07/2015 Patient Education: [facility] - Saving AutoInj - 18+ - Dynamic [...] areas dry Exposure to scabies-RX sent to [facility]. 03/07/2014 Appointment: Melba Goldman [facility]Ptel[phone] [facility] 03/07/2014 Patient Education: Patient Medication Summary Completed [...] change in blood pressure readings at home. Ryjqjex-calqgxsvwiu-iadohjlm duragesic patch-appt with Dr Ortiz for pain management 11/21/2013 Appointment: Shahida Manzo WPtel: [phone] Follow up 11/21/2013 Patient Education: Patient Medication Summary Completed 11/21/2013 Patient Education: Hypertension Completed 11/21/2013 Patient Education: .Cervicalgia Neck Pain Completed 11/21/2013 Appointment: Melba Goldman WPtel: [address] [place], [place] [phone] Other 11/19/2013 Appointment: Melba Goldman WPtel: [address] [place], [place] [phone] Follow up 11/06/2013 Appointment: Melba Goldman WPtel: [address] [place], [place] [phone] Lab Draw 10/15/2013 Patient Education: Patient Medication [...] Shahida Manzo WPtel: [phone] Other 09/24/2013 Patient Education: Patient Medication Summary Completed 09/24/2013 Visit Plan: Paronychia/Cellulitis - continue with oral antibiotics as previously directed, return to clinic as previously directed, call for acute change in symptoms, worsening redness, warmth, discharge. 09/19/2013 Appointment: Melba Goldman WPtel: [facility] Other 09/19/2013 Patient Education: Patient Medication Summary Completed 09/19/2013 Visit Plan: Conjunctivitis - rx for eye drops/lube sent electronically to the patient's pharmacy. The patient has been instructed to cleanse affected eye with warm washcloth, then place medication into affected eye four times daily. Thrush-refill nystatin-call if symptoms do not resolve 08/05/2013 Appointment: Shahida Manzo WPtel: [address] [place] [id number] [facility] 08/05/2013 Patient Education: Patient Medication Summary Completed [...] improvement. 06/03/2013 Appointment: Melba Goldman [facility]Ptel: [phone] Follow up 06/03/2013 Patient Education: Patient Medication Summary Completed 06/03/2013 Patient Education: Hypertension Completed 06/03/2013 Appointment: Melba Goldman WPtel: [phone] [facility] [place] Nurse Visit 05/13/2013 Patient Education: Patient [...] control. 05/07/2013 Appointment: Mel[facility] Goldman [facility]Ptel: [phone] Follow up 05/07/2013 Patient Education: Patient Medication Summary Completed 05/07/2013 Patient Education: Hypertension Completed 05/07/2013 Patient Education: Patient Medication Summary Completed 04/30/2013 Patient Education: Hypertension Completed 04/30/2013 Visit Plan: Arthritis- occasionally uncontrolled symptoms- recommend pt to take antiinflammatory as directed for pain control. Use tylenol for break through pain symptoms. 12/03/2012 Appointment: Melba Goldman [facility]Ptel: [phone] Follow [facility] 12/03/2012 Patient Education: [...] resolve 09/24/2012 Appointment: Shah[facility]zo [facility]Ptel: [phone] [place] [address] 09/24/2012 Patient Education: Patient Medication Summary Completed [...] diflucan 09/10/2012 Appointment: Melba Goldman [facility]Ptel: [phone] Follow up 09/10/2012 [...] pain symptoms. 08/08/2012 Appointment: Shahida Manzo WPtel: [address] [place], [place] [phone] Follow up 08/08/2012 Patient Education: Patient Medication Summary Completed 08/08/2012 Patient Education: Patient Medication Summary Completed 08/07/2012 Patient Education: Hypertension Completed 08/07/2012 Appointment: Melba Goldman WPtel: [address] [place], [place] [phone] Lab Draw 02/16/2012 Patient Education: Patient Medication [...] Needs labs. 02/15/2012 Appointment: Melba Goldman WPtel: [facility] [place] Other 02/15/2012 Patient Education: Patient Medication Summary Completed 02/15/2012 Visit Plan: Abdominal pain - ultrasound tomorrow AM nothing to eat before the ultrasound from 11pm tonight bland diet. Nausea - worse with fatty foods, recommended low fat/bland diet, call if symptoms worsening. 11/10/2011 Appointment: Melba Goldman WPtel: [facility] Other 11/10/2011 Patient Education: Patient Medication Summary [...] stools. 08/01/2011 Appointment: Melba Goldman [facility]Ptel: [phone] [place] Other 08/01/2011 Patient Education: Patient Medication Summary Completed 08/01/2011 Patient Education: High Blood Pressure: Essential Hypertension Completed 08/01/2011 Visit Plan: Sinusitis - Pt has acute infection - pain in face, maxillary region, Pt informed to use decongestant, RX given to patient, sinus rinses also recommended. Call if symptoms do not show improvement. Cough- tessalsathish zurita 07/14/2011 Appointment: Shahida Manzo WPtel: [phone] [place] Other 07/14/2011 Patient Education: Patient [...] the office. 05/23/2011 Appointment: Shahida Manzo WPtel: [address] [place] [address] [place] Other 05/23/2011 Patient Education: Patient Medication [...] cough med 05/03/2011 Appointment: Shahida Manzo WPtel: [address] [place], [place] [phone] [place] Other 05/03/2011 Patient Education: Patient Medication [...] her symptoms. 04/25/2011 Appointment: Shahida Manzo WPtel: [address] [place] [id number] Other 04/25/2011 Patient Education: Patient Medication Summary [...] OFFICE Sleep apnea-patient needs new CPAP-will contact [facility] Pt reports that she uses [...] OFFICE Sleep apnea-patient needs new CPAP-will contact [facility] patient Pt reports that she uses her [...] OFFICE Sleep apnea-patient needs new CPAP-will contact [facility] LOSARTAN 50MG DAILY MONITOR BLOOD [...] call for acute concerns. Hyperlipidemia-check fasting labs Ljqdujvnrnxnkl-jibjntd-ympeu labs LOSARTAN 50MG DAILY MONITOR BLOOD PRESSURE [...] call for acute concerns. Hyperlipidemia-check fasting labs Aarrbvxzvtqvaa-faogqny-vecxx labs . Sinusitis - Pt has acute [...] not show improvement. Gentamicin nasal spray to [facility] Increase prilosec to twice daily . [...] areas dry Exposure to scabies-RX sent to [facility]. rocephin/kenalog . Sinusitis - Pt [...] change in blood pressure readings at home. Xhzkqhm-zeqydmvuerm-zfetkebt duragesic patch-appt with Dr Ortiz for pain [...]
--- OUTSIDE RECORDS SUMMARY | 2019-03-08 15:09 | XMS REPORT | CCD ---
Author Author [facility] Address [address] [place] [address] Phone Care Team Providers Care Auger Supervisor Name Role Phone PP Unavailable CCM Unavailable Summary Purpose Interface Exchange Insurance Providers Payer name Policy type / Coverage type Covered green party ID Effective Begin Date Effective End Date [employer] Medicare Part B [id number] Unknown Family history Son Diagnosis Age At Onset Crohn's disease Unknown Brother Diagnosis Age At Onset Cardiovascular disease Unknown Mother Diagnosis Age At Onset Hypertension Unknown Father Diagnosis Age At Onset Cardiovascular disease Unknown Social History Social History Element Codes Description Effective Dates Marital status Unknown 04/22/2011 Number of children Unknown 3 1 son -Crohns 04/22/[address]: 766316248 Nonsmoker 04/22/2011 Allergies, Adverse Reactions, Alerts Substance [...] hydrocodone 10 mg-acetaminophen 325 mg tablet RxNorm: 141908 Tablet(s) PO TAKE ONE TO TWO TABLETS BY MOUTH EVERY 6 HOURS NEEDED FOR PAIN 11/13/2018 11/27/2018 Active losartan 100 mg tablet RxNorm: 077477 1 Tablet(s) PO daily 11/13/2018 05/11/2019 Active Synthroid 112 mcg tablet RxNorm: 565590 1 Tablet(s) PO daily 11/01/2018 04/29/2019 Active Brand name only! Dosage change! Synthroid 112 mcg tablet RxNorm: 001557 1 Tablet(s) PO daily 11/01/2018 10/31/2018 Inactive Brand name only! Dosage change! losartan 50 mg tablet RxNorm: 874862 1 Tablet(s) PO daily 10/30/2018 11/12/2018 Inactive Tamiflu 75 mg capsule RxNorm: 602882 1 Capsule(s) PO daily 10/30/2018 11/08/2018 Inactive Synthroid 100 mcg tablet RxNorm: 068407 1 Tablet(s) PO daily 10/30/2018 10/31/2018 Inactive Brand name only! Lexapro 20 mg tablet RxNorm: 327259 TAKE ONE AND ONE-HALF TABLET BY MOUTH DAILY 10/23/2018 10/17/2019 Active alprazolam 0.25 mg tablet RxNorm: 012365 1 Tablet(s) PO TID as needed 10/10/2018 01/07/2019 Active polymyxin B sulfate 10,000 unit-trimethoprim 1 mg/mL eye drops RxNorm: 089515 2 Drop(s) ophthalmic (eye) QID 10/08/2018 10/14/2018 Inactive hydrocodone 10 mg-acetaminophen 325 mg tablet RxNorm: 746351 Tablet(s) PO TAKE ONE TO TWO TABLETS BY MOUTH EVERY 6 HOURS NEEDED FOR PAIN 09/11/2018 09/25/2018 Inactive piroxicam 20 mg capsule RxNorm: 194124 TAKE ONE CAPSULE BY MOUTH DAILY 08/09/2018 01/05/2019 Active trazodone 50 mg tablet RxNorm: 110597 TAKE ONE AND ONE-HALF (1 1/2) TABLET BY MOUTH AT BEDTIME. MAY INCREASE TO 2 TABLETS AT BEDTIME NEEDED 08/02/2018 11/19/2018 Active Nexium 40 mg capsule,delayed release RxNorm: 744915 TAKE ONE CAPSULE BY MOUTH TWICE A DAY 07/23/2018 11/19/2018 Active Bystolic 5 mg tablet RxNorm: 077566 1 Tablet(s) PO daily to take with 10 mg daily to equal 15mg daily 07/17/2018 10/29/2018 Inactive alprazolam 0.25 mg tablet RxNorm: 467316 1 Tablet(s) PO TID as needed 07/16/2018 10/29/2018 Inactive hydrocodone 10 mg-acetaminophen 325 mg tablet RxNorm: 432090 Tablet(s) PO TAKE ONE TO TWO TABLETS BY MOUTH EVERY 6 HOURS NEEDED FOR PAIN 07/10/2018 07/24/2018 Inactive prednisone 20 mg tablet RxNorm: 186102 1 Tablet(s) PO BID 07/10/2018 07/14/2018 Inactive Phenergan with Codeine Syrup RxNorm: 5-10 Milliliter(s) PO Q6 PRN 06/28/2018 No Stop Date Active prednisone 20 mg tablet RxNorm: 061494 2 Tablet(s) PO daily 05/31/2018 06/04/2018 Inactive prednisone 20 mg tablet RxNorm: 551252 2 Tablet(s) PO daily 05/31/2018 05/30/2018 Inactive ceftriaxone 500 mg solution for injection RxNorm: 0025645 Inj 05/28/2018 05/28/2018 Inactive doxycycline hyclate 100 mg tablet RxNorm: 2556330 1 Tablet(s) PO BID 05/28/2018 06/06/2018 Inactive Kenalog 40 mg/mL suspension for injection RxNorm: 2954993 Milliliter(s) Inj 05/28/2018 05/28/2018 Inactive hydrocodone 10 mg-acetaminophen 325 mg tablet RxNorm: 409287 Tablet(s) PO TAKE ONE TO TWO TABLETS BY MOUTH EVERY 6 HOURS NEEDED FOR PAIN 05/09/2018 05/23/2018 Inactive alprazolam 0.25 mg tablet RxNorm: 148313 1 Tablet(s) PO daily as needed 04/25/2018 07/15/2018 Inactive Bystolic 10 mg tablet RxNorm: 166981 TAKE ONE TABLET BY MOUTH DAILY 04/16/2018 09/12/2018 Inactive hydrocodone 10 mg-acetaminophen 325 mg tablet RxNorm: 815904 Tablet(s) PO TAKE ONE TO TWO TABLETS BY MOUTH EVERY 6 HOURS NEEDED FOR PAIN 03/06/2018 03/20/2018 Inactive trazodone 50 mg tablet RxNorm: 283848 TAKE ONE AND ONE-HALF (1 1/2) TABLET BY MOUTH AT BEDTIME. MAY INCREASE TO 2 TABLETS AT BEDTIME NEEDED 02/23/2018 06/12/2018 Inactive mupirocin 2 % topical ointment RxNorm: 824042 1 TOP BID 02/09/2018 05/27/2018 Inactive Zofran 4 mg tablet RxNorm: 322838 1 Tablet(s) PO TID as needed 02/08/2018 No Stop Date Active Keflex 500 mg capsule RxNorm: 061925 1 Capsule(s) PO TID 02/07/2018 02/13/2018 Inactive alprazolam 0.25 mg tablet RxNorm: 809215 1 Tablet(s) PO daily as needed 01/24/2018 07/09/2018 Inactive hydrocodone 10 mg-acetaminophen 325 mg tablet RxNorm: 463572 Tablet(s) PO TAKE ONE TO TWO TABLETS BY MOUTH EVERY 6 HOURS NEEDED FOR PAIN 01/19/2018 02/02/2018 Inactive hydrochlorothiazide 25 mg tablet RxNorm: 897950 Tablet(s) TAKE ONE TABLET BY MOUTH DAILY 01/19/2018 01/19/2018 Inactive Kenalog 40 mg/mL suspension for injection RxNorm: 7052016 1 Milliliter(s) Inj 01/19/2018 01/19/2018 Inactive piroxicam 20 mg capsule RxNorm: 827809 1 Capsule(s) PO daily 01/19/2018 07/17/2018 Inactive D/C ORDER FOR HCTZ ceftriaxone 500 mg solution for injection RxNorm: 6110740 500 Milligram(s) Inj 01/19/2018 01/19/2018 Inactive Nexium 40 mg capsule,delayed release RxNorm: 915757 TAKE ONE CAPSULE BY MOUTH TWICE A DAY 01/18/2018 04/17/2018 Inactive Nexium 40 mg capsule,delayed release RxNorm: 782906 TAKE ONE CAPSULE BY MOUTH TWICE A DAY 01/15/2018 04/14/2018 Inactive ciprofloxacin 0.3 % eye drops RxNorm: 327770 2 Drop(s) ophthalmic (eye) Q2H while awake x 2 days, then Q4H x 5 days 11/23/2017 05/27/2018 Inactive Keflex 500 mg capsule RxNorm: 093725 1 Capsule(s) PO TID 11/23/2017 11/29/2017 Inactive hydrocodone 10 mg-acetaminophen 325 mg tablet RxNorm: 916666 Tablet(s) PO TAKE ONE TO TWO TABLETS BY MOUTH EVERY 6 HOURS NEEDED FOR PAIN 10/30/2017 11/13/2017 Inactive Augmentin 500 mg-125 mg tablet RxNorm: 502499 1 Tablet(s) PO TID 10/27/2017 11/05/2017 Inactive alprazolam 0.25 mg tablet RxNorm: 708690 1 Tablet(s) PO daily as needed 10/26/2017 04/24/2018 Inactive trazodone 50 mg tablet RxNorm: 521453 TAKE ONE AND ONE-HALF (1 1/2) TABLET BY MOUTH AT BEDTIME. MAY INCREASE TO 2 TABLETS AT BEDTIME NEEDED 09/25/2017 02/03/2018 Inactive Lexapro 20 mg tablet RxNorm: 302895 TAKE ONE AND ONE-HALF TABLET BY MOUTH DAILY 09/15/2017 09/09/2018 Inactive Flagyl 500 mg tablet RxNorm: 800011 1 Tablet(s) PO TID 09/12/2017 09/21/2017 Inactive promethazine 25 mg tablet RxNorm: 101757 1 Tablet(s) PO TID as needed nausea and vomitting THIS WILL MAKE YOU SLEEPY 09/12/2017 11/08/2017 Inactive Keflex 500 mg capsule RxNorm: 609840 1 Capsule(s) PO QID 08/25/2017 08/31/2017 Inactive [SAVINGS FOR UNINSURED PATIENTS -- [id number], PCN: [id number], Group: [id number], ID# [id number], Process claim through [employer], for questions: . THIS IS NOT INSURANCE.] alprazolam 0.25 mg tablet RxNorm: 616846 1 Tablet(s) PO daily as needed 07/31/2017 04/24/2018 Inactive prednisone 20 mg tablet RxNorm: 397879 2 Tablet(s) PO daily 07/25/2017 07/29/2017 Inactive Augmentin 500 mg-125 mg tablet RxNorm: 637275 1 Tablet(s) PO TID 07/25/2017 08/03/2017 Inactive trazodone 50 mg tablet RxNorm: 753753 TAKE ONE AND ONE-HALF (1 1/2) TABLET BY MOUTH AT BEDTIME. MAY INCREASE TO 2 TABLETS AT BEDTIME NEEDED 06/30/2017 09/03/2017 Inactive Bystolic 10 mg tablet RxNorm: 845827 TAKE ONE TABLET BY MOUTH DAILY 06/30/2017 2017 Inactive hydrochlorothiazide 25 mg tablet RxNorm: 687604 TAKE ONE TABLET BY MOUTH DAILY 06/30/2017 01/18/2018 Inactive Flagyl 500 mg tablet RxNorm: 181576 1 Tablet(s) PO TID 06/27/2017 07/03/2017 Inactive Phenergan with Codeine Syrup RxNorm: 5-10 Milliliter(s) PO Q6 PRN 06/27/2017 11/15/2017 Inactive Levaquin 500 mg tablet RxNorm: 923092 1 Tablet(s) PO daily 06/27/2017 07/03/2017 Inactive Kenalog 40 mg/mL suspension for injection RxNorm: 2335839 1 Milliliter(s) Inj 06/27/2017 06/27/2017 Inactive Nexium 40 mg capsule,delayed release RxNorm: 357001 1 Capsule(s) PO BID TAKE ONE CAPSULE BY MOUTH BID 05/22/2017 09/18/2017 Inactive Nexium 40 mg capsule,delayed release RxNorm: 943732 1 Capsule(s) PO BID TAKE ONE CAPSULE BY MOUTH BID 05/22/2017 05/21/2017 Inactive hydrocodone 10 mg-acetaminophen 325 mg tablet RxNorm: 506017 Tablet(s) PO TAKE ONE TO TWO TABLETS BY MOUTH EVERY 6 HOURS NEEDED FOR PAIN 05/17/2017 06/15/2017 Inactive Nexium 40 mg capsule,delayed release RxNorm: 062334 Capsule(s) TAKE ONE CAPSULE BY MOUTH BID 05/17/2017 05/21/2017 Inactive alprazolam 0.25 mg tablet RxNorm: 079184 1 Tablet(s) PO daily as needed 05/03/2017 07/01/2017 Inactive Levaquin 500 mg tablet RxNorm: 632535 1 Tablet(s) PO daily 04/20/2017 04/26/2017 Inactive clotrimazole 1 % topical cream RxNorm: 893684 1 Application TOP BID 04/20/2017 11/07/2017 Inactive Kenalog 40 mg/mL suspension for injection RxNorm: 4247624 Milliliter(s) Inj 04/20/2017 04/20/2017 Inactive nystatin 100,000 unit/gram topical powder RxNorm: 959632 1 Gram(s) APPLY TOPICALLY TWO TIMES A DAY 04/10/2017 07/08/2017 Inactive trazodone 50 mg tablet RxNorm: 379061 TAKE ONE AND ONE-HALF (1 1/2) TABLET BY MOUTH AT BEDTIME. MAY INCREASE TO 2 TABLETS AT BEDTIME NEEDED 03/28/2017 06/23/2017 Inactive Augmentin 875 mg-125 mg tablet RxNorm: 948072 1 Tablet(s) PO BID 03/14/2017 03/20/2017 Inactive Kenalog 40 mg/mL suspension for injection RxNorm: 4470645 1 Milliliter(s) Inj 03/14/2017 03/14/2017 Inactive Lexapro 20 mg tablet RxNorm: 504748 1.5 Tablet(s) PO daily 03/08/2017 03/07/2017 Inactive Lexapro 20 mg tablet RxNorm: 520576 1.5 Tablet(s) PO daily 03/08/2017 07/05/2017 Inactive alprazolam 0.25 mg tablet RxNorm: 475714 1 Tablet(s) PO daily as needed 02/23/2017 04/23/2017 Inactive (Response to an electronic controlled substance refill request - RxReferenceNumber: [id number]) Flagyl 500 mg tablet RxNorm: 498595 1 Tablet(s) PO TID 02/20/2017 03/01/2017 Inactive promethazine 25 mg tablet RxNorm: 185356 1 Tablet(s) PO TID as needed nausea 02/20/2017 03/01/2017 Inactive Cipro 500 mg tablet RxNorm: 782377 1 Tablet(s) PO BID 02/20/2017 03/01/2017 Inactive Flagyl 500 mg tablet RxNorm: 094419 1 Tablet(s) PO TID 02/09/2017 02/15/2017 Inactive Trintellix 10 mg tablet RxNorm: 1749256 1 Tablet(s) PO QAM 02/06/2017 03/07/2017 Inactive Efudex 5 % topical cream RxNorm: 565666 1 Application TOP BID use on skin spot on nose 02/06/2017 02/15/2017 Inactive Bystolic 10 mg tablet RxNorm: 800077 TAKE ONE TABLET BY MOUTH DAILY 02/03/2017 06/02/2017 Inactive Imitrex 50 mg tablet RxNorm: 707990 TAKE ONE TABLET BY MOUTH EVERY 8 HOURS NEEDED MAY REPEAT IN 1 HOUR OF INITIAL DOSE. DISCONTINUE FIORICET 12/22/2016 02/19/2017 Inactive Nexium 40 mg capsule,delayed release RxNorm: 414570 TAKE ONE CAPSULE BY MOUTH EVERY DAY 12/21/2016 05/16/2017 Inactive Lexapro 20 mg tablet RxNorm: 498596 Tablet(s) TAKE ONE TABLET BY MOUTH DAILY 12/05/2016 02/05/2017 Inactive Augmentin 875 mg-125 mg tablet RxNorm: 531225 1 Tablet(s) PO BID 11/28/2016 12/04/2016 Inactive ceftriaxone 500 mg solution for injection RxNorm: 1210394 1 Milliliter(s) Inj 11/28/2016 11/28/2016 Inactive hydrocodone 10 mg-acetaminophen 325 mg tablet RxNorm: 553870 Tablet(s) PO TAKE ONE TO TWO TABLETS BY MOUTH EVERY 6 HOURS NEEDED FOR PAIN 11/28/2016 05/16/2017 Inactive (Appended: Controlled substance eRx refill - RxReferenceNumber: [id number]) prednisone 20 mg tablet RxNorm: 005828 2 Tablet(s) PO daily 11/28/2016 12/02/2016 Inactive trazodone 50 mg tablet RxNorm: 219296 Tablet(s) TAKE 1 AND 1/2 TABLETS EVERY NIGHT AT BEDTIME , MAY INCREASE TO 2 TABLETS AT BEDTIME NEEDED 11/21/2016 11/20/2016 Inactive Synthroid 100 mcg tablet RxNorm: 776093 1 Tablet(s) PO daily 11/21/2016 05/19/2017 Inactive Brand name only! trazodone 50 mg tablet RxNorm: 525028 TAKE 1 AND 1/2 TABLETS EVERY NIGHT AT BEDTIME , MAY INCREASE TO 2 TABLETS AT BEDTIME NEEDED 11/21/2016 08/01/2018 Inactive Synthroid 100 mcg tablet RxNorm: 635393 1 Tablet(s) PO daily TAKE ONE TABLET BY MOUTH DAILY 11/08/2016 11/20/2016 Inactive ceftriaxone 500 mg solution for injection RxNorm: 2221722 Inj 11/07/2016 11/07/2016 Inactive Kenalog 40 mg/mL suspension for injection RxNorm: 6875739 Milliliter(s) Inj 11/07/2016 11/07/2016 Inactive Xanax 0.25 mg tablet RxNorm: 855575 1 Tablet(s) PO daily as needed 10/31/2016 05/02/2017 Inactive alprazolam 0.25 mg tablet RxNorm: 293139 1 Tablet(s) PO daily as needed 10/21/2016 12/18/2016 Inactive (Response to an electronic controlled substance refill request - RxReferenceNumber: [id number]) hydrochlorothiazide 25 mg tablet RxNorm: 726558 TAKE ONE TABLET BY MOUTH DAILY 10/11/2016 04/08/2017 Inactive Xanax 0.25 mg tablet RxNorm: 628905 1 Tablet(s) PO daily as needed 08/23/2016 10/19/2016 Inactive Flonase Allergy Relief 50 mcg/actuation nasal spray,suspension RxNorm: 5501996 1 Miles NASAL daily 08/15/2016 No Stop Date Active amoxicillin 500 mg capsule RxNorm: 097992 1 Capsule(s) PO TID 08/15/2016 08/24/2016 Inactive Bystolic 10 mg tablet RxNorm: 301064 TAKE ONE TABLET BY MOUTH DAILY 08/01/2016 12/28/2016 Inactive trazodone 50 mg tablet RxNorm: 370543 TAKE 1 AND 1/2 TABLETS EVERY NIGHT AT BEDTIME , MAY INCREASE TO 2 TABLETS AT BEDTIME NEEDED 07/25/2016 11/11/2016 Inactive alprazolam 0.25 mg tablet RxNorm: 911589 1 Tablet(s) PO daily as needed 07/25/2016 08/22/2016 Inactive (Response to an electronic controlled substance refill request - RxReferenceNumber: [id number]) Imitrex 50 mg tablet RxNorm: 339850 1 Tablet(s) PO Q8 as needed may repeat x1 dose in 1 hour of inital dose. 07/13/2016 No Stop Date Active Lexapro 20 mg tablet RxNorm: 788614 TAKE 1/2 TABLET BY MOUTH DAILY FOR 10 DAYS, THEN TAKE ONE TABLET BY MOUTH DAILY 06/27/2016 11/23/2016 Inactive Synthroid 100 mcg tablet RxNorm: 144760 TAKE ONE TABLET BY MOUTH DAILY 06/20/2016 11/07/2016 Inactive Augmentin 500 mg-125 mg tablet RxNorm: 513839 1 Tablet(s) PO TID 06/07/2016 06/13/2016 Inactive hydrocodone 10 mg-acetaminophen 325 mg tablet RxNorm: 886792 Tablet(s) PO TAKE ONE TO TWO TABLETS BY MOUTH EVERY 6 HOURS NEEDED FOR PAIN 06/07/2016 11/27/2016 Inactive (Appended: Controlled substance eRx refill - RxReferenceNumber: [id number]) hydrochlorothiazide 25 mg tablet RxNorm: 257158 TAKE ONE TABLET BY MOUTH DAILY 03/14/2016 09/09/2016 Inactive Edarbi 40 mg tablet RxNorm: 3193159 1 Tablet(s) PO daily 03/14/2016 06/06/2016 Inactive trazodone 50 mg tablet RxNorm: 720060 Tablet(s) TAKE 1 AND 1/2 TABLET AT BEDTIME. MAY INCREASE TO 2 TABLETS IF NECESSARY 02/25/2016 07/05/2016 Inactive Imitrex 50 mg tablet RxNorm: 764888 1 Tablet(s) PO Q8 as needed may repeat x1 dose in 1 hour of inital dose. 02/25/2016 07/12/2016 Inactive dc fioricet Xanax 0.25 mg tablet RxNorm: 551512 1 Tablet(s) PO daily as needed 02/24/2016 07/21/2016 Inactive mupirocin 2 % topical ointment RxNorm: 268048 1 TOP BID 02/22/2016 11/08/2017 Inactive Bactrim DS 800 mg-160 mg tablet RxNorm: 527890 1 Tablet(s) PO BID 02/22/2016 03/02/2016 Inactive Fioricet 50 mg-325 mg-40 mg tablet RxNorm: 059597 Tablet(s) TAKE ONE TABLET BY MOUTH EVERY 4 HOURS NEEDED FOR headache 02/12/2016 02/24/2016 Inactive (Response to an electronic controlled substance refill request - RxReferenceNumber: [id number]) Fioricet 50 mg-325 mg-40 mg tablet RxNorm: 869597 Tablet(s) TAKE ONE TABLET BY MOUTH EVERY 4 HOURS NEEDED FOR headache 02/12/2016 02/11/2016 Inactive (Response to an electronic controlled substance refill request - RxReferenceNumber: [id number]) Nexium 40 mg capsule,delayed release RxNorm: 030788 TAKE ONE CAPSULE BY MOUTH EVERY DAY 02/01/2016 10/27/2016 Inactive Bystolic 10 mg tablet RxNorm: 447796 Tablet(s) TAKE ONE TABLET BY MOUTH DAILY 01/06/2016 07/03/2016 Inactive Xanax 0.25 mg tablet RxNorm: 099387 1 Tablet(s) PO daily as needed 12/28/2015 02/23/2016 Inactive Levaquin 500 mg tablet RxNorm: 795414 1 Tablet(s) PO daily take a probiotic daily 12/14/2015 02/11/2016 Inactive Levaquin 500 mg tablet RxNorm: 157045 1 Tablet(s) PO daily take a probiotic daily 12/14/2015 12/13/2015 Inactive prednisone 20 mg tablet RxNorm: 662214 1 Tablet(s) PO BID 12/07/2015 12/13/2015 Inactive Augmentin 875 mg-125 mg tablet RxNorm: 107215 1 Tablet(s) PO BID 12/07/2015 12/13/2015 Inactive ceftriaxone 500 mg solution for injection RxNorm: 4511881 Inj 12/07/2015 12/07/2015 Inactive Phenergan with Codeine Syrup RxNorm: 5-10 Milliliter(s) PO Q6 PRN 12/07/2015 06/26/2017 Inactive alprazolam 0.25 mg tablet RxNorm: 147734 1 Tablet(s) PO daily as needed 11/27/2015 12/25/2015 Inactive (Response to an electronic controlled substance refill request - RxReferenceNumber: [id number]) trazodone 50 mg tablet RxNorm: 486950 TAKE 1 AND 1/2 TABLET AT BEDTIME FOR 2 WEEKS, MAY INCREASE TO 2 TABLETS IF NECESSARY AFTER THAT 11/26/2015 02/24/2016 Inactive ceftriaxone 500 mg solution for injection RxNorm: 8856286 Milliliter(s) Inj 11/24/2015 11/24/2015 Inactive prednisone 10 mg tablet RxNorm: 731205 3 Tablet(s) PO daily 11/24/2015 11/28/2015 Inactive cefdinir 300 mg capsule RxNorm: 819169 1 Capsule(s) PO BID 11/24/2015 11/30/2015 Inactive Kenalog 40 mg/mL suspension for injection RxNorm: 9359577 1 Milliliter(s) Inj 11/24/2015 11/24/2015 Inactive Lexapro 20 mg tablet RxNorm: 459167 TAKE 1/2 TABLET BY MOUTH DAILY FOR 10 DAYS, THEN TAKE ONE TABLET BY MOUTH DAILY 11/23/2015 05/20/2016 Inactive Lipitor 10 mg tablet RxNorm: 556706 Tablet(s) TAKE ONE TABLET BY MOUTH EVERY DAY 10/26/2015 11/06/2016 Inactive Norvasc 10 mg tablet RxNorm: 422918 Tablet(s) PO TAKE ONE TABLET BY MOUTH EVERY DAY 10/26/2015 01/18/2018 Inactive hydrochlorothiazide 25 mg tablet RxNorm: 336302 TAKE ONE TABLET BY MOUTH DAILY 10/20/2015 01/17/2016 Inactive promethazine 25 mg/mL injection solution RxNorm: 816990 Milliliter(s) Inj 08/27/2015 08/27/2015 Inactive ketorolac 60 mg/2 mL intramuscular solution RxNorm: 332862 Milliliter(s) IM 08/27/2015 08/27/2015 Inactive alprazolam 0.25 mg tablet RxNorm: 437734 1 Tablet(s) PO daily as needed 08/27/2015 10/25/2017 Inactive (Response to an electronic controlled substance refill request - RxReferenceNumber: [id number]) Lexapro 20 mg tablet RxNorm: 567229 TAKE 1/2 TABLET BY MOUTH DAILY FOR 10 DAYS, THEN TAKE ONE TABLET BY MOUTH DAILY 08/13/2015 11/10/2015 Inactive Flonase 50 mcg/actuation nasal spray,suspension RxNorm: 352558 PLACE 1 SPRAY IN EACH NOSTRIL DAILY 08/13/2015 02/08/2016 Inactive Augmentin 500 mg-125 mg tablet RxNorm: 222362 1 Tablet(s) PO TID 08/10/2015 08/16/2015 Inactive Kenalog 40 mg/mL suspension for injection RxNorm: 9534956 Milliliter(s) Inj 08/10/2015 08/10/2015 Inactive ceftriaxone 500 mg solution for injection RxNorm: 4897129 Inj 08/10/2015 08/10/2015 Inactive nystatin 100,000 unit/mL oral suspension RxNorm: 240196 4 Milliliter(s) PO QID 08/10/2015 08/16/2015 Inactive trazodone 50 mg tablet RxNorm: 079037 TAKE 1 AND 1/2 TABLET AT BEDTIME FOR 2 WEEKS, MAY INCREASE TO 2 TABLETS IF NECESSARY AFTER THAT 07/31/2015 11/25/2015 Inactive ceftriaxone 500 mg solution for injection RxNorm: 6380632 1 Milliliter(s) Inj 07/28/2015 07/28/2015 Inactive Bactrim DS 800 mg-160 mg tablet RxNorm: 510366 1 Tablet(s) PO BID 07/28/2015 08/06/2015 Inactive Bactroban 2 % topical ointment RxNorm: 946327 1 Application TOP BID 07/28/2015 08/06/2015 Inactive Diflucan 150 mg tablet RxNorm: 302648 1 Tablet(s) PO daily 06/11/2015 06/17/2015 Inactive clotrimazole 1 % topical cream RxNorm: 511571 1 Application TOP BID 06/11/2015 07/10/2015 Inactive Bystolic 10 mg tablet RxNorm: 826608 TAKE ONE TABLET BY MOUTH DAILY 06/08/2015 12/04/2015 Inactive alprazolam 0.25 mg tablet RxNorm: 906232 1 Tablet(s) PO daily as needed 06/01/2015 08/25/2015 Inactive (Response to an electronic controlled substance refill request - RxReferenceNumber: [id number]) Fioricet 50 mg-325 mg-40 mg tablet RxNorm: 614480 Tablet(s) TAKE ONE TABLET BY MOUTH EVERY 4 HOURS NEEDED FOR headache 05/28/2015 06/08/2015 Inactive (Response to an electronic controlled substance refill request - RxReferenceNumber: [id number]) trazodone 50 mg tablet RxNorm: 847884 TAKE 1 AND 1/2 TABLET AT BEDTIME FOR 2 WEEKS, MAY INCREASE TO 2 TABLETS IF NECESSARY AFTER THAT 05/25/2015 08/22/2015 Inactive trazodone 50 mg tablet RxNorm: 194593 TAKE 1 AND 1/2 TABLET AT BEDTIME FOR 2 WEEKS, MAY INCREASE TO 2 TABLETS IF NECESSARY AFTER THAT 05/25/2015 05/24/2015 Inactive Synthroid 100 mcg tablet RxNorm: 899525 TAKE ONE TABLET BY MOUTH DAILY 04/23/2015 01/17/2016 Inactive Lipitor 10 mg tablet RxNorm: 904773 TAKE ONE TABLET BY MOUTH EVERY DAY 04/23/2015 10/25/2015 Inactive Kenalog 40 mg/mL suspension for injection RxNorm: 1495455 Milliliter(s) Inj 03/19/2015 03/19/2015 Inactive Lexapro 20 mg tablet RxNorm: 897406 1 Tablet(s) PO daily 03/19/2015 07/16/2015 Inactive 1/2 tab daily x 10 days then 1 tab daily hydrocodone 10 mg-acetaminophen 325 mg tablet RxNorm: 673958 Tablet(s) PO TAKE ONE TO TWO TABLETS BY MOUTH EVERY 6 HOURS NEEDED FOR PAIN 03/19/2015 06/06/2016 Inactive (Appended: Controlled substance eRx refill - RxReferenceNumber: [id number]) Carafate 1 gram tablet RxNorm: 943183 1 Tablet(s) PO AC & HS 03/19/2015 06/16/2015 Inactive dissolve in water and take as a slurry hydrochlorothiazide 25 mg tablet RxNorm: 783914 1 Tablet(s) PO daily 03/12/2015 09/07/2015 Inactive Nexium 40 mg capsule,delayed release RxNorm: 554439 TAKE ONE CAPSULE BY MOUTH EVERY DAY 02/26/2015 12/22/2015 Inactive Cymbalta 60 mg capsule,delayed release RxNorm: 128947 TAKE ONE CAPSULE BY MOUTH TWICE A DAY 02/23/2015 03/18/2015 Inactive alprazolam 0.25 mg tablet RxNorm: 014142 1 Tablet(s) PO daily as needed 02/11/2015 05/10/2015 Inactive (Response to an electronic controlled substance refill request - RxReferenceNumber: [id number]) trazodone 50 mg tablet RxNorm: 276996 TAKE 1 AND 1/2 TABLET AT BEDTIME FOR 2 WEEKS, MAY INCREASE TO 2 TABLETS IF NECESSARY AFTER THAT 01/27/2015 05/24/2015 Inactive Augmentin 500 mg-125 mg tablet RxNorm: 674358 1 Tablet(s) PO TID 01/07/2015 01/13/2015 Inactive gentamicin 0.3 % eye drops RxNorm: 263707 3 Drop(s) OPH QID 01/07/2015 01/13/2015 Inactive [AttnRPh: Saving apply/adjudicate RxGRP:[id number] RxBIN:[id number] RxPCN: ID#:[id number]] scopolamine 1.5 mg transdermal 72 hour patch RxNorm: 002165 1 Patch TD q72 hours 01/07/2015 11/23/2015 Inactive Synthroid 100 mcg tablet RxNorm: 888784 TAKE ONE TABLET BY MOUTH ONCE A DAY 01/06/2015 04/22/2015 Inactive nystatin 100,000 unit/gram topical powder RxNorm: 103288 APPLY TOPICALLY TWO TIMES A DAY 12/18/2014 03/17/2015 Inactive alprazolam 0.25 mg tablet RxNorm: 062517 TAKE ONE TABLET BY MOUTH DAILY NEEDED 10/30/2014 11/28/2014 Inactive (Response to an electronic controlled substance refill request - RxReferenceNumber: [id number]) alprazolam 0.25 mg tablet RxNorm: 247381 Tablet(s) TAKE ONE TABLET BY MOUTH DAILY 10/30/2014 10/29/2014 Inactive (Response to an electronic controlled substance refill request - RxReferenceNumber: [id number]) Lipitor 10 mg tablet RxNorm: 574818 TAKE ONE TABLET BY MOUTH EVERY DAY 10/30/2014 02/26/2015 Inactive alprazolam 0.25 mg tablet RxNorm: 166934 TAKE ONE TABLET BY MOUTH DAILY 10/07/2014 10/29/2014 Inactive (Response to an electronic controlled substance refill request - RxReferenceNumber: [id number]) alprazolam 0.25 mg tablet RxNorm: 416377 TAKE ONE TABLET BY MOUTH DAILY 10/06/2014 10/07/2014 Inactive (Response to an electronic controlled substance refill request - RxReferenceNumber: [id number]) alprazolam 0.25 mg tablet RxNorm: 556965 Tablet(s) TAKE ONE TABLET BY MOUTH EVERY DAY NEEDED 09/30/2014 10/06/2014 Inactive (Response to an electronic controlled substance refill request - RxReferenceNumber: [id number]) Fioricet 50 mg-325 mg-40 mg tablet RxNorm: 538345 Tablet(s) TAKE ONE TABLET BY MOUTH EVERY 4 HOURS NEEDED FOR headache 09/29/2014 10/12/2014 Inactive (Response to an electronic controlled substance refill request - RxReferenceNumber: [id number]) Bystolic 10 mg tablet RxNorm: 140261 1 Tablet(s) PO daily TAKE ONE TABLET BY MOUTH EVERY DAY 09/29/2014 04/26/2015 Inactive Bystolic 5 mg tablet RxNorm: 144744 TAKE 1 AND 1/2 TABLETS ONCE DAILY 09/24/2014 09/23/2014 Inactive Bystolic 5 mg tablet RxNorm: 333129 Tablet(s) TAKE 1 AND 1/2 TABLETS ONCE DAILY 09/24/2014 09/18/2015 Inactive gentamicin 0.3 % eye drops RxNorm: 459589 3 Drop(s) OPH QID 09/23/2014 09/29/2014 Inactive trazodone 50 mg tablet RxNorm: 202284 TAKE 1 AND 1/2 TABLET AT BEDTIME FOR 2 WEEKS, MAY INCREASE TO 2 TABLETS IF NECESSARY AFTER THAT 09/22/2014 01/26/2015 Inactive Fioricet 50 mg-325 mg-40 mg tablet RxNorm: 021095 TAKE ONE TABLET BY MOUTH EVERY 4 HOURS NEEDED FOR PAIN 09/17/2014 09/28/2014 Inactive (Response to an electronic controlled substance refill request - RxReferenceNumber: [id number]) Duragesic 50 mcg/hr transdermal patch RxNorm: 198994 1 TD q72 hours 08/07/2014 01/06/2015 Inactive [SAVINGS FOR UNINSURED PATIENTS -- BIN:[id number], PCN: ASPROD1, Group: [id number], ID# [id number], Process claim through Planbox, for questions: . THIS IS NOT INSURANCE.] alprazolam 0.25 mg tablet RxNorm: 356767 TAKE ONE TABLET BY MOUTH EVERY DAY NEEDED 07/31/2014 08/29/2014 Inactive (Response to an electronic controlled substance refill request - RxReferenceNumber: [id number]) alprazolam 0.25 mg tablet RxNorm: 053089 1 Tablet(s) PO daily as needed TAKE ONE TABLET BY MOUTH EVERY DAY NEEDED 07/30/2014 08/01/2014 Inactive (Response to an electronic controlled substance refill request - RxReferenceNumber: [id number]) Diflucan 150 mg tablet RxNorm: 854082 1 Tablet(s) PO daily 06/25/2014 07/01/2014 Inactive [SAVINGS FOR UNINSURED PATIENTS -- BIN:[id number], PCN: ASPROD1, Group: [id number], ID# [id number], Process claim through MedImpact, for questions: . THIS IS NOT INSURANCE.] Kenalog 40 mg/mL suspension for injection RxNorm: 5323023 Milliliter(s) Inj 06/23/2014 06/23/2014 Inactive [SAVINGS FOR UNINSURED PATIENTS -- BIN:621424, PCN: ASPROD1, Group: [id number], ID# [id number], Process claim through MedImpact, for questions: . THIS IS NOT INSURANCE.] ceftriaxone 500 mg solution for injection RxNorm: 086300 Inj 06/23/2014 06/23/2014 Inactive [SAVINGS FOR UNINSURED PATIENTS -- BIN:061119, PCN: ASPROD1, Group: [id number], ID# [id number], Process claim through MedImpact, for questions: . THIS IS NOT INSURANCE.] Levaquin 500 mg tablet RxNorm: 966933 1 Tablet(s) PO daily 06/23/2014 07/13/2014 Inactive [SAVINGS FOR UNINSURED PATIENTS -- BIN:343811, PCN: ASPROD1, Group: [id number], ID# [id number], Process claim through MedImpact, for questions: . THIS IS NOT INSURANCE.] Duragesic 50 mcg/hr transdermal patch RxNorm: 922939 1 TD q72 hours 06/05/2014 08/06/2014 Inactive [SAVINGS FOR UNINSURED PATIENTS -- BIN:221728, PCN: ASPROD1, Group: [id number], ID# [id number], Process claim through Planbox, for questions: . THIS IS NOT INSURANCE.] alprazolam 0.25 mg tablet RxNorm: 373575 1 Tablet(s) PO daily as needed TAKE ONE TABLET BY MOUTH EVERY DAY NEEDED 06/02/2014 07/29/2014 Inactive (Response to an electronic controlled substance refill request - RxReferenceNumber: [id number]) nystatin 100,000 unit/gram topical powder RxNorm: 196665 APPLY TO AFFECTED AREA(S) TWO TIMES A DAY 05/01/2014 06/14/2014 Inactive hydrochlorothiazide 25 mg tablet RxNorm: 143632 TAKE ONE TABLET BY MOUTH EVERY DAY MUST CALL MD FOR APPOINTMENT 04/24/2014 10/20/2014 Inactive alprazolam 0.25 mg tablet RxNorm: 065461 Tablet(s) TAKE ONE TABLET BY MOUTH EVERY DAY NEEDED 04/16/2014 06/02/2014 Inactive (Response to an electronic controlled substance refill request - RxReferenceNumber: [id number]) alprazolam 0.25 mg tablet RxNorm: 418072 TAKE ONE TABLET BY MOUTH EVERY DAY NEEDED 04/16/2014 05/15/2014 Inactive (Response to an electronic controlled substance refill request - RxReferenceNumber: [id number]) alprazolam 0.25 mg tablet RxNorm: 237586 TAKE ONE TABLET BY MOUTH EVERY DAY NEEDED 04/16/2014 05/15/2014 Inactive (Response to an electronic controlled substance refill request - RxReferenceNumber: [id number]) alprazolam 0.25 mg tablet RxNorm: 199640 TAKE ONE TABLET BY MOUTH EVERY DAY NEEDED 04/14/2014 04/16/2014 Inactive (Response to an electronic controlled substance refill request - RxReferenceNumber: [id number]) Lipitor 10 mg tablet RxNorm: 380632 TAKE ONE TABLET BY MOUTH EVERY DAY 04/14/2014 09/10/2014 Inactive alprazolam 0.25 mg tablet RxNorm: 450101 TAKE ONE TABLET BY MOUTH EVERY DAY NEEDED 04/14/2014 04/14/2014 Inactive (Response to an electronic controlled substance refill request - RxReferenceNumber: [id number]) alprazolam 0.25 mg tablet RxNorm: 788258 TAKE ONE TABLET BY MOUTH EVERY DAY NEEDED 04/14/2014 04/15/2014 Inactive (Response to an electronic controlled substance refill request - RxReferenceNumber: [id number]) alprazolam 0.25 mg tablet RxNorm: 533683 TAKE ONE TABLET BY MOUTH EVERY DAY NEEDED 04/14/2014 04/14/2014 Inactive (Response to an electronic controlled substance refill request - RxReferenceNumber: [id number]) nystatin 100,000 unit/gram topical powder RxNorm: 961485 1 Application TOP BID 04/03/2014 07/01/2014 Inactive [SAVINGS FOR UNINSURED PATIENTS -- BIN:051564, PCN: ASPROD1, Group: [id number], ID# [id number], Process claim through MedISynclogueact, for questions: . THIS IS NOT INSURANCE.] Keflex 500 mg capsule RxNorm: 415358 1 Capsule(s) PO QID 04/03/2014 04/09/2014 Inactive [SAVINGS FOR UNINSURED PATIENTS -- BIN:733018, PCN: ASPROD1, Group: [id number], ID# [id number], Process claim through MedImpact, for questions: . THIS IS NOT INSURANCE.] Synthroid 100 mcg tablet RxNorm: 715246 1 Tablet(s) PO daily TAKE ONE TABLET BY MOUTH EVERY DAY 04/01/2014 01/05/2015 Inactive [SAVINGS FOR UNINSURED PATIENTS -- BIN:805590, PCN: ASPROD1, Group: [id number], ID# [id number], Process claim through MedImpact, for questions: . THIS IS NOT INSURANCE.] Duragesic 50 mcg/hr transdermal patch RxNorm: 526969 1 TD q72 hours 03/24/2014 06/04/2014 Inactive [SAVINGS FOR UNINSURED PATIENTS -- BIN:292382, PCN: ASPROD1, Group: [id number], ID# [id number], Process claim through Leonar3Doact, for questions: . THIS IS NOT INSURANCE.] trazodone 50 mg tablet RxNorm: 008176 TAKE 1 AND 1/2 TABLET AT BEDTIME FOR 2 WEEKS, MAY INCREASE TO 2 TABLETS IF NECESSARY AFTER THAT 03/18/2014 09/13/2014 Inactive nystatin 100,000 unit/gram topical powder RxNorm: 190953 1 Application TOP BID 03/07/2014 03/16/2014 Inactive [SAVINGS FOR UNINSURED PATIENTS -- BIN:407247, PCN: ASPROD1, Group: [id number], ID# [id number], Process claim through Leonar3Doact, for questions: . THIS IS NOT INSURANCE.] permethrin 5 % topical cream RxNorm: 076116 1 Application TOP daily 03/07/2014 11/23/2015 Inactive apply head to toe-leave on overnight and wash off in the a.m. May repeat x 1 if needed Diflucan 150 mg tablet RxNorm: 159514 1 Tablet(s) PO daily 03/07/2014 03/09/2014 Inactive [SAVINGS FOR UNINSURED PATIENTS -- BIN:967294, PCN: ASPLEYDA1, Group: [id number], ID# [id number], Process claim through Planbox, for questions: . THIS IS NOT INSURANCE.] hydrochlorothiazide 25 mg tablet RxNorm: 032936 TAKE ONE TABLET BY MOUTH EVERY DAY MUST CALL MD FOR APPOINTMENT 03/06/2014 04/23/2014 Inactive Zithromax Z-Sergio 250 mg tablet RxNorm: 679353 Tablet(s) PO as directed 03/04/2014 11/23/2015 Inactive [SAVINGS FOR UNINSURED PATIENTS -- BIN:280717, PCN: ASPROD1, Group: AME08, ID# [id number], Process claim through Planbox, for questions: . THIS IS NOT INSURANCE.] Flonase 50 mcg/actuation nasal spray,suspension RxNorm: 336018 1 Miles NASAL daily 03/04/2014 07/01/2014 Inactive [SAVINGS FOR UNINSURED PATIENTS -- BIN:492345, PCN: ASPROD1, Group: [id number], ID# [id number], Process claim through Planbox, for questions: . THIS IS NOT INSURANCE.] alprazolam 0.25 mg tablet RxNorm: 196776 1 Tablet(s) PO PRN TAKE ONE TABLET BY MOUTH EVERY DAY NEEDED 02/25/2014 04/14/2014 Inactive (Appended: Controlled substance eRx refill - RxReferenceNumber: [id number]) alprazolam 0.25 mg tablet RxNorm: 944411 TAKE ONE TABLET BY MOUTH EVERY DAY NEEDED 02/21/2014 03/22/2014 Inactive (Response to an electronic controlled substance refill request - RxReferenceNumber: [id number]) alprazolam 0.25 mg tablet RxNorm: 307335 TAKE ONE TABLET BY MOUTH EVERY DAY NEEDED 02/21/2014 03/22/2014 Inactive (Response to an electronic controlled substance refill request - RxReferenceNumber: [id number]) alprazolam 0.25 mg tablet RxNorm: 087335 TAKE ONE TABLET BY MOUTH EVERY DAY NEEDED 02/18/2014 03/19/2014 Inactive (Response to an electronic controlled substance refill request - RxReferenceNumber: [id number]) Cymbalta 60 mg capsule,delayed release RxNorm: 522139 TAKE ONE CAPSULE BY MOUTH TWICE A DAY 02/18/2014 01/13/2015 Inactive Nexium 40 mg capsule,delayed release RxNorm: 805129 TAKE ONE CAPSULE BY MOUTH EVERY DAY 02/18/2014 01/13/2015 Inactive Bactrim DS 800 mg-160 mg tablet RxNorm: 170748 1 Tablet(s) PO BID 02/13/2014 02/19/2014 Inactive probiotic while one antibiotic Bactrim DS 800 mg-160 mg tablet RxNorm: 545280 1 Tablet(s) PO BID 02/13/2014 02/12/2014 Inactive hydrocodone 10 mg-acetaminophen 325 mg tablet RxNorm: 477050 Tablet(s) PO TAKE ONE TO TWO TABLETS BY MOUTH EVERY 6 HOURS NEEDED FOR PAIN 02/06/2014 03/18/2015 Inactive (Appended: Controlled substance eRx refill - RxReferenceNumber: [id number]) Abilify 2 mg tablet RxNorm: 223104 Tablet(s) PO TAKE ONE TABLET BY MOUTH EVERY NIGHT AT BEDTIME 02/03/2014 03/19/2015 Inactive Duragesic 50 mcg/hr transdermal patch RxNorm: 234352 1 TD q72 hours 01/14/2014 03/23/2014 Inactive alprazolam 0.25 mg tablet RxNorm: 743192 1 Tablet(s) PO QDAY PRN 01/14/2014 02/12/2014 Inactive alprazolam 0.25 mg tablet RxNorm: 821594 Tablet(s) PO TAKE ONE TABLET BY MOUTH EVERY DAY NEEDED 01/14/2014 02/24/2014 Inactive (Appended: Controlled substance eRx refill - RxReferenceNumber: [id number]) Lipitor 10 mg tablet RxNorm: 587756 Tablet(s) PO TAKE ONE TABLET BY MOUTH EVERY DAY 01/14/2014 04/13/2014 Inactive Synthroid 100 mcg tablet RxNorm: 605608 Tablet(s) PO TAKE ONE TABLET BY MOUTH EVERY DAY 2013 03/31/2014 Inactive Fioricet 50 mg-325 mg-40 mg tablet RxNorm: 142353 Tablet(s) PO TAKE ONE TABLET BY MOUTH EVERY 4 HOURS NEEDED FOR PAIN 11/27/2013 09/17/2014 Inactive Fioricet 50 mg-325 mg-40 mg tablet RxNorm: 652061 Tablet(s) PO TAKE ONE TABLET BY MOUTH EVERY 4 HOURS NEEDED FOR PAIN 11/25/2013 11/26/2013 Inactive Zithromax Z-Sergio 250 mg tablet RxNorm: 159637 Tablet(s) PO as directed 11/11/2013 01/13/2014 Inactive Bystolic 10 mg tablet RxNorm: 891873 Tablet(s) PO TAKE ONE TABLET BY MOUTH EVERY DAY 10/21/2013 09/28/2014 Inactive Abilify 2 mg tablet RxNorm: 676314 1 Tablet(s) PO QHS 09/25/2013 01/22/2014 Inactive Synthroid 100 mcg tablet RxNorm: 939879 Tablet(s) PO TAKE ONE TABLET BY MOUTH EVERY DAY 09/24/2013 12/25/2013 Inactive Abilify 2 mg tablet RxNorm: 784606 1 Tablet(s) PO QHS 09/24/2013 09/24/2013 Inactive Rocephin 500 mg solution for injection RxNorm: 168659 1ml Milliliter(s) Inj 09/24/2013 09/24/2013 Inactive Rocephin 500 mg solution for injection RxNorm: 042524 1 Milliliter(s) Inj 09/19/2013 09/19/2013 Inactive Bystolic 5 mg tablet RxNorm: 601625 1 1/2 Tablet(s) PO daily 09/17/2013 03/15/2014 Inactive 1 1/2 daily may have 90 day if cheaper Bystolic 5 mg tablet RxNorm: 138923 1 1/2 Tablet(s) PO daily 09/17/2013 09/16/2013 Inactive 1 1/2 daily Lipitor 10 mg tablet RxNorm: 187525 Tablet(s) PO TAKE ONE TABLET BY MOUTH EVERY DAY 09/12/2013 01/13/2014 Inactive hydrocodone 10 mg-acetaminophen 325 mg tablet RxNorm: 493464 Tablet(s) PO TAKE ONE TO TWO TABLETS BY MOUTH EVERY 6 HOURS NEEDED FOR PAIN 09/09/2013 10/29/2017 Inactive (Appended: Controlled substance eRx refill - RxReferenceNumber: [id number]) hydrocodone 10 mg-acetaminophen 325 mg tablet RxNorm: 207587 1 Tablet(s) PO Q6 PRN 09/09/2013 02/06/2014 Inactive hydrocodone 10 mg-acetaminophen 325 mg tablet RxNorm: 771267 Tablet(s) PO TAKE ONE TO TWO TABLETS BY MOUTH EVERY 6 HOURS NEEDED FOR PAIN 09/06/2013 10/29/2017 Inactive (Appended: Controlled substance eRx refill - RxReferenceNumber: [id number]) Norvasc 10 mg tablet RxNorm: 962995 Tablet(s) PO TAKE ONE TABLET BY MOUTH EVERY DAY 09/05/2013 10/25/2015 Inactive trazodone 50 mg tablet RxNorm: 129036 1 1/2 Tablet(s) PO QHS 09/03/2013 03/17/2014 Inactive 75q hs x 2 week may increase to 100mg if nec after that nystatin 100,000 unit/mL oral suspension RxNorm: 758448 6 Milliliter(s) PO QID 08/06/2013 08/15/2013 Inactive Flonase 50 mcg/actuation nasal spray,suspension RxNorm: 964968 2 Miles NASAL daily 08/06/2013 03/03/2014 Inactive nystatin 100,000 unit/mL oral suspension RxNorm: 407017 6 Unit(s) PO QID 08/05/2013 08/05/2013 Inactive Phenergan with Codeine Syrup RxNorm: 5 Milliliter(s) PO Q4 PRN 08/05/2013 12/02/2013 Inactive 8 ounces alprazolam 0.25 mg tablet RxNorm: 929481 1 Tablet(s) PO QDAY PRN 07/29/2013 01/14/2014 Inactive Diflucan 150 mg tablet RxNorm: 721189 1 Tablet(s) PO daily 07/24/2013 07/26/2013 Inactive hydrochlorothiazide 25 mg tablet RxNorm: 028187 Tablet(s) PO TAKE ONE TABLET BY MOUTH EVERY DAY MUST CALL MD FOR APPOINTMENT 07/19/2013 03/05/2014 Inactive Phenergan with Codeine Syrup RxNorm: 10 Milliliter(s) PO Q4 PRN 07/10/2013 08/04/2013 Inactive 8 ounces Rocephin 500 mg solution for injection RxNorm: 2871539 1 Inj 07/10/2013 07/10/2013 Inactive cefdinir 300 mg capsule RxNorm: 482430 1 Capsule(s) PO BID 07/10/2013 07/16/2013 Inactive prednisone 10 mg tablet RxNorm: 749940 3 Tablet(s) PO daily 07/10/2013 07/14/2013 Inactive Carafate 100 mg/mL oral suspension RxNorm: 290973 10 Milliliter(s) PO Q6 PRN pt to take carafate 10mL every 6 hours as needed. 07/10/2013 08/05/2014 Inactive Kenalog 40 mg/mL suspension for injection RxNorm: 5153754 1 Milliliter(s) Inj 07/10/2013 07/10/2013 Inactive trazodone 50 mg tablet RxNorm: 836310 1 Tablet(s) PO QHS 07/10/2013 09/02/2013 Inactive sulfamethoxazole 800 mg-trimethoprim 160 mg tablet RxNorm: 706703 1 Tablet(s) PO BID 06/03/2013 06/12/2013 Inactive Synthroid 125 mcg tablet RxNorm: 417772 1 Tablet(s) PO daily 05/07/2013 09/23/2013 Inactive Bystolic 10 mg tablet RxNorm: 431466 1.5 Tablet(s) PO daily 05/07/2013 09/03/2013 Inactive Voltaren 1 % Topical Gel RxNorm: 625370 4 Gram(s) TOP QID apply 4 grams to knees, 2 grams to hands and ankles four times daily. 05/07/2013 09/03/2013 Inactive hydrocodone 10 mg-acetaminophen 325 mg tablet RxNorm: 215543 1 Tablet(s) PO Q6 PRN 04/23/2013 09/09/2013 Inactive Norvasc 10 mg tablet RxNorm: 606311 Tablet(s) PO TAKE ONE TABLET BY MOUTH EVERY DAY 04/23/2013 09/04/2013 Inactive alprazolam 0.25 mg tablet RxNorm: 369555 1 Tablet(s) PO QDAY PRN 03/25/2013 07/22/2013 Inactive Bystolic 10 mg tablet RxNorm: 960446 1 Tablet(s) PO daily TAKE ONE TABLET BY MOUTH EVERY DAY 03/25/2013 05/06/2013 Inactive zolpidem 10 mg tablet RxNorm: 771348 1 Tablet(s) PO HS PRN 03/25/2013 07/09/2013 Inactive gentamicin 0.3 % Eye Drops RxNorm: 220795 3 Drop(s) OPH QID three gtts to each eye QID x 7 days 03/11/2013 03/10/2013 Inactive gentamicin 0.3 % eye drops RxNorm: 893920 3 Drop(s) OPH QID three gtts to each eye QID x 7 days 03/11/2013 03/17/2013 Inactive Nexium 40 mg capsule,delayed release RxNorm: 028900 Capsule(s) PO TAKE ONE CAPSULE BY MOUTH EVERY DAY 02/15/2013 02/17/2014 Inactive Cymbalta 60 mg capsule,delayed release RxNorm: 588763 Capsule(s) PO TAKE ONE CAPSULE BY MOUTH TWICE A DAY 02/15/2013 02/17/2014 Inactive hydrocodone 10 mg-acetaminophen 325 mg tablet RxNorm: 1634953 1 Tablet(s) PO Q6 PRN 01/22/2013 04/22/2013 Inactive Lipitor 10 mg tablet RxNorm: 155226 Tablet(s) PO TAKE ONE TABLET BY MOUTH EVERY DAY 01/07/2013 09/11/2013 Inactive Cymbalta 60 mg capsule,delayed release RxNorm: 620701 Capsule(s) PO TAKE ONE CAPSULE BY MOUTH TWICE A DAY 01/02/2013 02/14/2013 Inactive Synthroid 100 mcg tablet RxNorm: 234212 1 Tablet(s) PO 12/03/2012 05/06/2013 Inactive Enablex 7.5 mg tablet,extended release RxNorm: 252900 1 Tablet(s) PO daily 11/28/2012 11/27/2012 Inactive Enablex 7.5 mg tablet,extended release RxNorm: 879557 1 Tablet(s) PO daily 11/28/2012 11/28/2012 Inactive scopolamine 1.5 mg 72 hr Transderm Patch RxNorm: 093522 1 Milligram(s) TD q72 hours 11/26/2012 05/06/2013 Inactive hydrochlorothiazide 25 mg tablet RxNorm: 149301 Tablet(s) PO TAKE ONE TABLET BY MOUTH EVERY DAY MUST CALL FOR APPOINTMENT 11/24/2012 07/18/2013 Inactive Cymbalta 60 mg capsule,delayed release RxNorm: 848704 Capsule(s) PO TAKE ONE CAPSULE BY MOUTH TWICE A DAY 10/26/2012 01/01/2013 Inactive Bystolic 10 mg tablet RxNorm: 382569 Tablet(s) PO TAKE ONE TABLET BY MOUTH EVERY DAY 10/12/2012 03/25/2013 Inactive zolpidem 10 mg tablet RxNorm: 075097 1 Tablet(s) PO HS PRN 10/02/2012 01/29/2013 Inactive alprazolam 0.25 mg tablet RxNorm: 829399 1 Tablet(s) PO QDAY PRN 10/02/2012 01/29/2013 Inactive Kenalog 40 mg/mL Susp for Injection RxNorm: 2126456 1 Milliliter(s) Inj 09/24/2012 09/24/2012 Inactive Diflucan 150 mg tablet RxNorm: 359753 1 Tablet(s) PO daily 09/24/2012 09/30/2012 Inactive acyclovir 400 mg tablet RxNorm: 463526 1 Tablet(s) PO QID 09/24/2012 10/08/2012 Inactive Cipro 500 mg tablet RxNorm: 535741 1 Tablet(s) PO BID 09/24/2012 09/30/2012 Inactive Tamiflu 75 mg capsule RxNorm: 178375 1 Capsule(s) PO BID 09/17/2012 09/16/2012 Inactive Tamiflu 75 mg capsule RxNorm: 098247 1 Capsule(s) PO BID 09/17/2012 09/16/2012 Inactive Tamiflu 75 mg capsule RxNorm: 358103 1 Capsule(s) PO BID please disregard order for #14 09/17/2012 09/21/2012 Inactive fluconazole 150 mg tablet RxNorm: 416115 1 Tablet(s) PO daily 09/10/2012 09/13/2012 Inactive ketoconazole 2 % Topical Cream RxNorm: 519143 Application TOP BID apply to affected area BID until gone 08/31/2012 11/01/2017 Inactive Norvasc 10 mg tablet RxNorm: 748054 Tablet(s) PO TAKE ONE TABLET BY MOUTH EVERY DAY 08/29/2012 04/22/2013 Inactive Cipro 500 mg tablet RxNorm: 577203 1 Tablet(s) PO BID 08/17/2012 08/26/2012 Inactive Flagyl 500 mg tablet RxNorm: 692101 1 Tablet(s) PO TID 08/17/2012 08/23/2012 Inactive Cipro 500 mg tablet RxNorm: 392824 1 Tablet(s) PO BID 08/17/2012 08/16/2012 Inactive zolpidem 10 mg tablet RxNorm: 879510 1 Tablet(s) PO HS PRN 08/17/2012 09/15/2012 Inactive Flagyl 500 mg tablet RxNorm: 385335 1 Tablet(s) PO TID 08/17/2012 08/16/2012 Inactive alprazolam 0.25 mg tablet RxNorm: 657721 1 Tablet(s) PO QDAY PRN 08/17/2012 09/15/2012 Inactive Belle Allergy 180 mg tablet RxNorm: 365221 1 Tablet(s) PO daily 08/08/2012 02/03/2013 Inactive hydrochlorothiazide 25 mg tablet RxNorm: 080561 1/2 Tablet(s) PO daily 08/08/2012 11/05/2012 Inactive needs appt Carafate 1 gram tablet RxNorm: 002307 1 Tablet(s) PO QID mix with 10 cc water and dissolve into slurry 08/08/2012 08/21/2012 Inactive hydrocodone 10 mg-acetaminophen 325 mg tablet RxNorm: 7993378 1 Tablet(s) PO Q6 PRN 08/08/2012 01/21/2013 Inactive Synthroid 100 mcg tablet RxNorm: 390797 1 Tablet(s) PO 08/08/2012 12/02/2012 Inactive Cymbalta 60 mg capsule,delayed release RxNorm: 413619 Capsule(s) PO 07/23/2012 10/25/2012 Inactive TAKE ONE CAPSULE BY MOUTH TWICE A DAY Nexium 40 mg capsule,delayed release RxNorm: 686245 Capsule(s) PO 06/20/2012 02/14/2013 Inactive TAKE ONE CAPSULE BY MOUTH EVERY DAY Lipitor 10 mg tablet RxNorm: 975762 Tablet(s) PO 06/20/2012 01/06/2013 Inactive TAKE ONE TABLET BY MOUTH EVERY DAY hydrochlorothiazide 25 mg tablet RxNorm: 493624 1 Tablet(s) PO daily 06/19/2012 08/07/2012 Inactive needs appt alprazolam 0.25 mg tablet RxNorm: 109381 1 Tablet(s) PO QDAY PRN 06/05/2012 07/04/2012 Inactive zolpidem 10 mg tablet RxNorm: 280876 1 Tablet(s) PO HS PRN 06/05/2012 07/04/2012 Inactive zolpidem 10 mg tablet RxNorm: 348433 1 Tablet(s) PO HS PRN 04/16/2012 05/15/2012 Inactive alprazolam 0.25 mg tablet RxNorm: 446421 1 Tablet(s) PO QDAY PRN 04/16/2012 05/15/2012 Inactive Cymbalta 60 mg capsule,delayed release RxNorm: 984630 1 Capsule(s) PO BID 03/22/2012 07/19/2012 Inactive Fioricet 50 mg-325 mg-40 mg tablet RxNorm: 040802 1 Tablet(s) PO Q4 PRN 03/22/2012 11/24/2013 Inactive Bystolic 10 mg tablet RxNorm: 752622 Tablet(s) PO 03/22/2012 10/11/2012 Inactive TAKE ONE TABLET BY MOUTH EVERY DAY potassium chloride ER 10 mEq Tab RxNorm: 473857 1 Tablet(s) PO daily 02/24/2012 03/01/2012 Inactive Lasix 20 mg Tab RxNorm: 622771 1 Tablet(s) PO daily 02/22/2012 02/21/2012 Inactive KCL 10 meq RxNorm: 1 PO daily 02/22/2012 02/21/2012 Inactive potassium chloride ER 10 mEq Tab RxNorm: 872303 1 Tablet(s) PO daily 02/22/2012 02/21/2012 Inactive Lasix 20 mg Tab RxNorm: 529054 1 Tablet(s) PO daily 02/22/2012 02/28/2012 Inactive KCL 10 meq RxNorm: 1 PO daily 02/22/2012 02/22/2012 Inactive potassium chloride ER 10 mEq Tab RxNorm: 309160 1 Tablet(s) PO daily 02/22/2012 02/23/2012 Inactive Rocephin 500 mg Solution for Injection RxNorm: 7579338 Inj 02/15/2012 02/15/2012 Inactive Nexium 40 mg capsule,delayed release RxNorm: 759956 1 Capsule(s) PO daily 02/15/2012 No Stop Date Active Bystolic 10 mg Tab RxNorm: 641337 1 Tablet(s) PO daily 02/15/2012 08/12/2012 Inactive alprazolam 0.25 mg tablet RxNorm: 880214 1 Tablet(s) PO QDAY PRN 01/31/2012 02/29/2012 Inactive zolpidem 10 mg tablet RxNorm: 294627 1 Tablet(s) PO HS PRN 01/31/2012 02/29/2012 Inactive alprazolam 0.25 mg Tab RxNorm: 278277 1 Tablet(s) PO QDAY PRN 12/16/2011 01/14/2012 Inactive zolpidem 10 mg Tab RxNorm: 353665 1 Tablet(s) PO HS PRN 12/16/2011 01/14/2012 Inactive Norvasc 10 mg tablet RxNorm: 731646 1 Tablet(s) PO daily 12/02/2011 02/21/2012 Inactive Lipitor 10 mg tablet RxNorm: 408423 1 Tablet(s) PO daily 11/16/2011 05/13/2012 Inactive zolpidem 10 mg Tab RxNorm: 013242 1 Tablet(s) PO HS PRN 10/26/2011 12/15/2011 Inactive alprazolam 0.25 mg Tab RxNorm: 845807 1 Tablet(s) PO QDAY PRN 10/26/2011 12/15/2011 Inactive hydrochlorothiazide 25 mg tablet RxNorm: 539861 1 Tablet(s) PO daily 09/05/2011 03/02/2012 Inactive Synthroid 75 mcg tablet RxNorm: 195094 1 Tablet(s) PO daily 08/01/2011 02/26/2012 Inactive Abilify 2 mg Tab RxNorm: 142698 1 Tablet(s) PO QHS 08/01/2011 09/10/2012 Inactive dicyclomine 10 mg Cap RxNorm: 896480 1 Capsule(s) PO TID 08/01/2011 10/29/2011 Inactive alprazolam 0.25 mg Tab RxNorm: 450239 1 Tablet(s) PO QDAY PRN 07/26/2011 10/25/2011 Inactive Fioricet 50 mg-325 mg-40 mg tablet RxNorm: 507131 1 Tablet(s) PO Q4 PRN 07/14/2011 03/21/2012 Inactive Rocephin 500 mg Solution for Injection RxNorm: 1268321 1 Milliliter(s) Inj 07/14/2011 08/01/2011 Inactive Nexium 40 mg Capsule, delayed release RxNorm: 146154 1 Capsule(s) PO daily 05/23/2011 10/06/2011 Inactive Bystolic 10 mg tablet RxNorm: 930534 1 Tablet(s) PO daily 05/23/2011 11/18/2011 Inactive Bystolic 10 mg Tab RxNorm: 296080 1 Tablet(s) PO daily 05/23/2011 05/22/2011 Inactive alprazolam 0.25 mg Tab RxNorm: 518949 1 Tablet(s) PO QDAY PRN 05/23/2011 07/25/2011 Inactive Influenza Virus Vaccine 0.5 mL RxNorm: IM 05/23/2011 05/23/2011 Inactive zolpidem 10 mg Tab RxNorm: 964423 1 Tablet(s) PO HS PRN 05/23/2011 10/25/2011 Inactive Rocephin 500 mg Solution for Injection RxNorm: 8807100 1 Milliliter(s) Inj 05/03/2011 07/14/2011 Inactive Kenalog 40 mg/mL Susp for Injection RxNorm: 8514468 1 Milliliter(s) Inj 05/03/2011 07/14/2011 Inactive Bactrim DS 800 mg-160 mg Tab RxNorm: 452167 1 Tablet(s) PO BID 05/03/2011 08/01/2011 Inactive Bystolic 10 mg tablet RxNorm: 481881 1 Tablet(s) PO daily No Start Date Active Flonase 50 mcg/actuation nasal spray,suspension RxNorm: 9010457 2 Miles NASAL daily No Start Date 08/05/2013 Inactive Levaquin 500 mg tablet RxNorm: 202684 Tablet(s) PO No Start Date 04/19/2017 Inactive Duragesic 50 mcg/hr transdermal patch RxNorm: 745571 1 TD q72 hours No Start Date 01/13/2014 Inactive Vesicare 5 mg tablet RxNorm: 695594 1 Tablet(s) PO daily No Start Date 01/06/2015 Inactive Celebrex 200 mg capsule RxNorm: 798889 1 Capsule(s) PO daily No Start Date 04/02/2014 Inactive zolpidem 10 mg Tab RxNorm: 210024 1 Tablet(s) PO HS PRN No Start Date 05/22/2011 Inactive Zyrtec 10 mg Tab RxNorm: 1873475 1 Tablet(s) PO daily No Start Date 08/08/2012 Inactive Flonase 50 mcg/actuation nasal spray,suspension RxNorm: 0810030 1 Miles NASAL daily No Start Date 11/07/2017 Inactive 1 spray to each nostril daily Nexium 40 mg Cap RxNorm: 265214 1 Capsule(s) PO daily No Start Date 05/22/2011 Inactive ketoconazole 2 % Topical Cream RxNorm: 685320 Application TOP BID apply to affected area BID until gone No Start Date 08/30/2012 Inactive aspirin 81 mg tablet RxNorm: 402625 1 Tablet(s) PO daily No Start Date 11/13/2017 Inactive Cymbalta 60 mg capsule,delayed release RxNorm: 776849 1 Capsule(s) PO BID No Start Date 03/21/2012 Inactive alprazolam 0.25 mg Tab RxNorm: 375522 1 Tablet(s) PO QDAY PRN No Start Date 05/22/2011 Inactive baclofen 10 mg tablet RxNorm: 576160 1 Tablet(s) PO TID as needed muscle spasms No Start Date 11/14/2017 Inactive Toprol XL 100 mg 24 hr Tab RxNorm: 261269 1 Tablet(s) PO BID No Start Date 04/25/2011 Inactive Xanax 0.25 mg tablet RxNorm: 165288 1 Tablet(s) PO daily as needed No Start Date 12/27/2015 Inactive Bystolic 10 mg Tab RxNorm: 802784 1 Tablet(s) PO daily No Start Date 05/22/2011 Inactive Fioricet 50 mg-325 mg-40 mg Tab RxNorm: 541428 1 Tablet(s) PO Q4 PRN No Start Date 07/13/2011 Inactive albuterol sulfate HFA 90 mcg/Actuation Aerosol Inhaler RxNorm: 9831108 1 INH Q4 PRN No Start Date 01/06/2015 Inactive Imitrex 50 mg tablet RxNorm: 284241 1 Tablet(s) PO Q8 as needed may repeat x1 dose in 1 hour of inital dose. No Start Date 02/24/2016 Inactive dc fioricet Tessalon 200 mg Cap RxNorm: 074056 1 Capsule(s) PO Q4 PRN No Start Date 02/14/2012 Inactive Zithromax Z-Sergio 250 mg tablet RxNorm: 189361 Tablet(s) PO No Start Date 11/10/2013 Inactive hydrochlorothiazide 25 mg Tab RxNorm: 877800 1 Tablet(s) PO daily No Start Date 09/04/2011 Inactive Fish Oil 1,000 mg Cap RxNorm: 1 Capsule(s) PO TID No Start Date 11/08/2017 Inactive Deplin 15 mg Tab RxNorm: 1 Tablet(s) PO daily No Start Date 08/01/2011 Inactive Brilinta 90 mg tablet RxNorm: 9919032 1 Tablet(s) PO BID No Start Date 11/23/2015 Inactive Synthroid 75 mcg Tab RxNorm: 601995 1 Tablet(s) PO daily No Start Date 07/31/2011 Inactive ciprofloxacin 0.3 % eye drops RxNorm: 731718 2 Drop(s) ophthalmic (eye) Q2H while awake x 2 days, then Q4H x 5 days No Start Date 11/22/2017 Inactive scopolamine 1.5 mg 72 hr Transderm Patch RxNorm: 556849 1 Milligram(s) TD q72 hours No Start Date 11/25/2012 Inactive hydrocodone-acetaminophen 10 mg-325 mg tablet RxNorm: 6398344 1 Tablet(s) PO Q6 PRN No Start Date 08/07/2012 Inactive Phenergan with Codeine Syrup RxNorm: 5-10 Milliliter(s) PO Q6 PRN No Start Date 02/14/2012 Inactive Norvasc 10 mg Tab RxNorm: 654851 1 Tablet(s) PO daily No Start Date 12/01/2011 Inactive Zithromax Z-Sergio 250 mg Tab RxNorm: 913102 Tablet(s) PO No Start Date 08/01/2011 Inactive Medication Administered Medication Codes Instructions Start Date Status ceftriaxone 500 mg solution for injection RxNorm: 6550055 05/28/2018 No longer Active Kenalog 40 mg/mL suspension for injection RxNorm: 2552815 Milliliter 05/28/2018 No longer Active ceftriaxone 500 mg solution for injection RxNorm: 6941449 500Milligram 01/19/2018 No longer Active Kenalog 40 mg/mL suspension for injection RxNorm: 4315170 1Milliliter 01/19/2018 No longer Active Kenalog 40 mg/mL suspension for injection RxNorm: 1419626 1Milliliter 06/27/2017 No longer Active Kenalog 40 mg/mL suspension for injection RxNorm: 2466536 Milliliter 04/20/2017 No longer Active Kenalog 40 mg/mL suspension for injection RxNorm: 4264091 1Milliliter 03/14/2017 No longer Active ceftriaxone 500 mg solution for injection RxNorm: 2134396 1Milliliter 11/28/2016 No longer Active Kenalog 40 mg/mL suspension for injection RxNorm: 2780327 Milliliter 11/07/2016 No longer Active ceftriaxone 500 mg solution for injection RxNorm: 9345584 11/07/2016 No longer Active ceftriaxone 500 mg solution for injection RxNorm: 6523310 12/07/2015 No longer Active Kenalog 40 mg/mL suspension for injection RxNorm: 1347871 1Milliliter 11/24/2015 No longer Active ceftriaxone 500 mg solution for injection RxNorm: 1052487 Milliliter 11/24/2015 No longer Active promethazine 25 mg/mL injection solution RxNorm: 161869 Milliliter 08/27/2015 No longer Active ketorolac 60 mg/2 mL intramuscular solution RxNorm: 387399 Milliliter 08/27/2015 No longer Active Kenalog 40 mg/mL suspension for injection RxNorm: 4579276 Milliliter 08/10/2015 No longer Active ceftriaxone 500 mg solution for injection RxNorm: 4633486 08/10/2015 No longer Active ceftriaxone 500 mg solution for injection RxNorm: 5011835 1Milliliter 07/28/2015 No longer Active Kenalog 40 mg/mL suspension for injection RxNorm: 7584676 Milliliter 03/19/2015 No longer Active Kenalog 40 mg/mL suspension for injection RxNorm: 4593208 Milliliter 06/23/2014 No longer Active ceftriaxone 500 mg solution for injection RxNorm: 949175 06/23/2014 No longer Active Rocephin 500 mg solution for injection RxNorm: 818221 1mlMilliliter 09/24/2013 No longer Active Rocephin 500 mg solution for injection RxNorm: 836346 1Milliliter 09/19/2013 No longer Active Rocephin 500 mg solution for injection RxNorm: 7574542 1 07/10/2013 No longer Active Kenalog 40 mg/mL suspension for injection RxNorm: 1019152 1Milliliter 07/10/2013 No longer Active Kenalog 40 mg/mL Susp for Injection RxNorm: 7563125 1Milliliter 09/24/2012 No longer Active Rocephin 500 mg Solution for Injection RxNorm: 9389896 02/15/2012 No longer Active Influenza Virus Vaccine 0.5 mL RxNorm: 05/23/2011 No longer Active Immunizations Vaccine Codes Date Status Influenza CVX: 141 06/24/2013 completed Pneumococcal CVX: 33 06/24/2013 completed PPD Unknown 05/13/2013 completed Assessments Condition Codes Effective Dates Essential (primary) hypertension ICD-10: I10 ICD-9: 401.1 11/13/2018 Mixed hyperlipidemia ICD-10: E78.2 ICD-9: 272.4 10/30/2018 [...] Item Item Code Result Date Free T4 Zho048 FREE T4 0.71 ng/dL 10/31/2018 Tsh Ord6 TSH (3rd IS) 7.87 uIU/mL 10/31/2018 Lipid Ord30 CHOL 170 mg/dL 10/31/2018 Lipid Ord30 HDL 53.0 mg/dl 10/31/2018 Lipid Ord30 TRIG 85 mg/dL 10/31/2018 Lipid Ord30 LDL 100 mg/dL 10/31/2018 Lipid Ord30 C/HDL 3.2 Ratio 10/31/2018 Comp Metabolic Mxa752 NA 142 mEq/L 10/31/2018 Comp Metabolic Fzf681 K 4.0 mEq/L 10/31/2018 Comp Metabolic Ykw625 CL 106 mEq/L 10/31/2018 Comp Metabolic Mqm739 CO2 27.0 mEq/L 10/31/2018 Comp Metabolic Zrc980 ANION GAP 13 10/31/2018 Comp Metabolic Cox329 GLUCOSE 114 mg/dL 10/31/2018 Comp Metabolic Gct439 Creat 0.7 mg/dL 10/31/2018 Comp Metabolic Lat926 eGFR 90 ml/min/1.73m2 10/31/2018 Comp Metabolic Tel209 BUN 21 mg/dL 10/31/2018 Comp Metabolic Zke648 B/C Ratio 30.9 Ratio 10/31/2018 Comp Metabolic Nmo529 CALCIUM 9.7 mg/dL 10/31/2018 Comp Metabolic Pwc716 ALK PHOS 63 U/L 10/31/2018 Comp Metabolic Dke036 AST(SGOT) 24 U/L 10/31/2018 Comp Metabolic Rti909 ALT(SGPT) 21 U/L 10/31/2018 Comp Metabolic Izg258 BILI T 0.6 mg/dL 10/31/2018 Comp Metabolic Tgi407 ALBUMIN 4.1 g/dL 10/31/2018 Comp Metabolic Tzu824 TPRO 6.6 g/dL 10/31/2018 Comp Metabolic Xrs330 GLOB 2.5 g/dL 10/31/2018 Comp Metabolic Qso730 A/G Ratio 1.7 Ratio 10/31/2018 Comp Metabolic Pia421 Osmo 287 mOsmo 10/31/2018 Cbc With Differential [...] 30.9 pg 10/31/2018 Cbc With Differential Ord2 [place]% 8.0 % 10/31/2018 Cbc With Differential Ord2 [...] 1.88 K/ul 10/31/2018 Cbc With Differential Ord2 [place] ABS# 0.6 K/ul 10/31/2018 Cbc With Differential Ord2 Eos ABS# 0.5 K/ul 10/31/2018 Cbc With Differential Ord2 Baso ABS# 0.1 K/ul 10/31/2018 Comp Metabolic Kzv171 NA 141 mEq/L 09/12/2017 Comp Metabolic Mwe906 K 4.1 mEq/L 09/12/2017 Comp Metabolic Ijz757 CL 105 mEq/L 09/12/2017 Comp Metabolic Bry756 CO2 30.0 mEq/L 09/12/2017 Comp Metabolic Pfo661 ANION GAP 10 09/12/2017 Comp Metabolic Vbn430 GLUCOSE 97 mg/dL 09/12/2017 Comp Metabolic Zpf937 Creat 0.7 mg/dL 09/12/2017 Comp Metabolic Nmr828 eGFR 91 ml/min/1.73m2 09/12/2017 Comp Metabolic Clk540 BUN 18 mg/dL 09/12/2017 Comp Metabolic Ztc876 B/C Ratio 26.5 Ratio 09/12/2017 Comp Metabolic Chs612 CALCIUM 9.7 mg/dL 09/12/2017 Comp Metabolic Vkr420 ALK PHOS 60 U/L 09/12/2017 Comp Metabolic Irl753 AST(SGOT) 22 U/L 09/12/2017 Comp Metabolic Yzb311 ALT(SGPT) 23 U/L 09/12/2017 Comp Metabolic Tpn740 BILI T 0.4 mg/dL 09/12/2017 Comp Metabolic Cbq029 ALBUMIN 3.8 g/dL 09/12/2017 Comp Metabolic Hah394 TPRO 6.4 g/dL 09/12/2017 Comp Metabolic Ryr425 GLOB 2.6 g/dL 09/12/2017 Comp Metabolic Dar774 A/G Ratio 1.5 Ratio 09/12/2017 Comp Metabolic Cjj051 Osmo 283 mOsmo 09/12/2017 Cbc With Differential [...] 30.7 pg 09/12/2017 Cbc With Differential Ord2 [place]% 7.2 % 09/12/2017 Cbc With Differential Ord2 [...] 2.46 K/ul 09/12/2017 Cbc With Differential Ord2 [place] ABS# 0.6 K/ul 09/12/2017 Cbc With Differential [...] 31.4 pg 11/07/2016 Cbc With Differential Ord2 [place]% 6.1 % 11/07/2016 Cbc With Differential Ord2 [...] 2.48 K/ul 11/07/2016 Cbc With Differential Ord2 [place] ABS# 0.6 K/ul 11/07/2016 Cbc With Differential Ord2 Eos ABS# 0.3 K/ul 11/07/2016 Cbc With Differential Ord2 Baso ABS# 0.1 K/ul 11/07/2016 Comp Metabolic Qxt258 NA 139 mEq/L 11/07/2016 Comp Metabolic Nyd541 K 3.8 mEq/L 11/07/2016 Comp Metabolic Lnz126 CL 106 mEq/L 11/07/2016 Comp Metabolic Sjv899 CO2 25.0 mEq/L 11/07/2016 Comp Metabolic Afd158 ANION GAP 12 11/07/2016 Comp Metabolic Yii384 GLUCOSE 98 mg/dL 11/07/2016 Comp Metabolic Oyw284 Creat 0.8 mg/dL 11/07/2016 Comp Metabolic Yol423 eGFR 71 ml/min/1.73m2 11/07/2016 Comp Metabolic Ppe180 BUN 36 mg/dL 11/07/2016 Comp Metabolic Lvu661 B/C Ratio 42.9 Ratio 11/07/2016 Comp Metabolic Tsh419 CALCIUM 9.9 mg/dL 11/07/2016 Comp Metabolic Wky047 ALK PHOS 57 U/L 11/07/2016 Comp Metabolic Slj295 AST(SGOT) 24 U/L 11/07/2016 Comp Metabolic Veu252 ALT(SGPT) 28 U/L 11/07/2016 Comp Metabolic Upo056 BILI T 0.4 mg/dL 11/07/2016 Comp Metabolic Xhd795 ALBUMIN 4.2 g/dL 11/07/2016 Comp Metabolic Uwq928 TPRO 7.0 g/dL 11/07/2016 Comp Metabolic Tbp146 GLOB 2.8 g/dL 11/07/2016 Comp Metabolic Kll502 A/G Ratio 1.5 Ratio 11/07/2016 Comp Metabolic Xif555 Osmo 286 mOsmo 11/07/2016 Free T4 Htx873 FREE T4 0.75 ng/dL 11/07/2016 Tsh Ord6 hTSH II 3.46 uIU/mL 11/07/2016 Comp Metabolic Bua245 NA 138 mEq/L 05/10/2016 Comp Metabolic Kpe433 K 3.8 mEq/L 05/10/2016 Comp Metabolic Sps612 CL 102 mEq/L 05/10/2016 Comp Metabolic Xuq947 CO2 29.0 mEq/L 05/10/2016 Comp Metabolic Cgd254 ANION GAP 11 05/10/2016 Comp Metabolic Ocr578 GLUCOSE 107 mg/dL 05/10/2016 Comp Metabolic Ahm512 Creat 0.7 mg/dL 05/10/2016 Comp Metabolic Lyp944 eGFR 93 ml/min/1.73m2 05/10/2016 Comp Metabolic Lgl227 BUN 18 mg/dL 05/10/2016 Comp Metabolic Fil182 B/C Ratio 26.9 Ratio 05/10/2016 Comp Metabolic Ain888 CALCIUM 9.8 mg/dL 05/10/2016 Comp Metabolic Zbq472 ALK PHOS 60 U/L 05/10/2016 Comp Metabolic Ltg762 AST(SGOT) 21 U/L 05/10/2016 Comp Metabolic Sal915 ALT(SGPT) 23 U/L 05/10/2016 Comp Metabolic Tdq423 BILI T 0.5 mg/dL 05/10/2016 Comp Metabolic Dvm282 ALBUMIN 4.1 g/dL 05/10/2016 Comp Metabolic Uuh386 TPRO 6.7 g/dL 05/10/2016 Comp Metabolic Anp097 GLOB 2.7 g/dL 05/10/2016 Comp Metabolic Txz263 A/G Ratio 1.5 Ratio 05/10/2016 Comp Metabolic Utk873 Osmo 278 mOsmo 05/10/2016 Lipid Ord30 CHOL 169 mg/dL 05/10/2016 Lipid Ord30 HDL 50.0 mg/dl 05/10/2016 Lipid Ord30 TRIG 161 mg/dL 05/10/2016 Lipid Ord30 LDL 87 mg/dL 05/10/2016 Lipid Ord30 C/HDL 3.4 Ratio 05/10/2016 Comp Metabolic Qlg413 NA 137 mEq/L 06/12/2015 Comp Metabolic Ujs914 K 3.8 mEq/L 06/12/2015 Comp Metabolic Lzu910 CL 104 mEq/L 06/12/2015 Comp Metabolic Ahq914 CO2 24.0 mEq/L 06/12/2015 Comp Metabolic Crf125 ANION GAP 13 06/12/2015 Comp Metabolic Frs363 GLUCOSE 92 mg/dL 06/12/2015 Comp Metabolic Gna598 Creat 0.7 mg/dL 06/12/2015 Comp Metabolic Jhu305 eGFR 87 ml/min/1.73m2 06/12/2015 Comp Metabolic Gjh059 BUN 31 mg/dL 06/12/2015 Comp Metabolic Ffd239 B/C Ratio 43.7 Ratio 06/12/2015 Comp Metabolic Ymp797 CALCIUM 10.0 mg/dL 06/12/2015 Comp Metabolic Guk424 ALK PHOS 58 U/L 06/12/2015 Comp Metabolic Fpr182 AST(SGOT) 32 U/L 06/12/2015 Comp Metabolic Ahq789 ALT(SGPT) 33 U/L 06/12/2015 Comp Metabolic Jlb756 BILI T 0.5 mg/dL 06/12/2015 Comp Metabolic Kvn345 ALBUMIN 4.1 g/dL 06/12/2015 Comp Metabolic Lbq557 TPRO 6.6 g/dL 06/12/2015 Comp Metabolic Tcd467 GLOB 2.5 g/dL 06/12/2015 Comp Metabolic Fct625 A/G Ratio 1.6 Ratio 06/12/2015 Comp Metabolic Zjx286 Osmo 280 mOsmo 06/12/2015 Cbc With Differential [...] Differential Ord2 RDW 14.2 % 06/12/2015 CBC 7056594 WBC 8.7 10e9/L 04/30/2013 CBC 8666919 RBC 4.63 10e12/L 04/30/2013 CBC 6785764 HGB 14.1 g/dL 04/30/2013 CBC 3189570 HCT DET 42.2 % 04/30/2013 CBC 7348874 MCV 91.1 fL 04/30/2013 CBC 7038813 MCH 30.5 pg 04/30/2013 CBC 7420878 MCHC 33.4 g/dL 04/30/2013 CBC 3083264 PLT 248 10e9/L 04/30/2013 CBC 1893360 MPV 12.1 fL 04/30/2013 CBC 6719021 LARA % 59.0 % 04/30/2013 CBC 5726794 LY % 27.6 % 04/30/2013 CBC 9895517 MON % 8.0 % 04/30/2013 CBC 1802565 EOS % 4.8 % 04/30/2013 CBC 3360443 BASO % 0.6 % 04/30/2013 CBC 3321675 RDW 13.3 % 04/30/2013 CBC 2782382 ABS LARA 5.13 10e9/L 04/30/2013 CBC 1970126 ABS LYMPH 2.40 10e9/L 04/30/2013 CBC 3563125 ABS MONO 0.70 10e9/L 04/30/2013 CBC 4046948 ABS EOS 0.42 10e9/L 04/30/2013 CBC 8978872 ABS BASO 0.05 10e9/L 04/30/2013 CBC 1380096 RDW-SD 43.1 fL 04/30/2013 TSH 5248188 TSH 4.339 uIU/ML 04/30/2013 A1C HPLC 4837122 A1C HPLC 59762-1 5.6 % 04/30/2013 FREE T4 1662785 FREE T4 0.84 NG/DL 04/30/2013 GFR CALC 7027870 GFR AA >60 ML/MIN 04/30/2013 GFR CALC 6594207 GFR NON-AA >60 ML/MIN 04/30/2013 CHEM 14 9486056 AST 22 U/L 04/30/2013 CHEM 14 5351672 ALT 22 IU/L 04/30/2013 CHEM 14 9140660 BUN 24 MG/DL 04/30/2013 CHEM 14 4910720 ALBUMIN 4.2 GM/DL 04/30/2013 CHEM 14 8207786 CHLORIDE 107 MMOL/L 04/30/2013 CHEM 14 4383305 BILI TOT 0.3 MG/DL 04/30/2013 CHEM 14 7338299 ALK PHOS 88 U/L 04/30/2013 CHEM 14 1795788 SODIUM 141 MMOL/L 04/30/2013 CHEM 14 9662310 CREATININE 0.60 MG/DL 04/30/2013 CHEM 14 2101986 CALCIUM 9.9 MG/DL 04/30/2013 CHEM 14 2503366 POTASSIUM 3.7 MMOL/L 04/30/2013 CHEM 14 0664602 PROT TOT 6.6 GM/DL 04/30/2013 CHEM 14 8303005 GLUCOSE 123 MG/DL 04/30/2013 CHEM 14 1828681 BICARB 25 MMOL/L 04/30/2013 CHEM 14 3281360 ANION GAP 9 MEQ/L 04/30/2013 LIPID GRP HDL TEST 46 MG/DL 04/30/2013 LIPID GRP TRIG 148 MG/DL 04/30/2013 LIPID GRP TEST LDL 75 MG/DL 04/30/2013 LIPID GRP CHOL 151 MG/DL 04/30/2013 LIPID GRP RCHOL/HDL 3.28 RATIO 04/30/2013 TSH 5115471 TSH 3.341 uIU/ML 11/29/2012 CBC 2173051 WBC 8.4 10e9/L 11/29/2012 CBC 0216569 RBC 4.77 10e12/L 11/29/2012 CBC 2988683 HGB 14.9 g/dL 11/29/2012 CBC 4590031 HCT DET 44.2 % 11/29/2012 CBC 7713848 MCV 92.7 fL 11/29/2012 CBC 4224713 MCH 31.2 pg 11/29/2012 CBC 2882783 MCHC 33.7 g/dL 11/29/2012 CBC 0652052 PLT 253 10e9/L 11/29/2012 CBC 9991388 MPV 11.8 fL 11/29/2012 CBC 0956127 LARA % 54.9 % 11/29/2012 CBC 3707166 LY % 29.0 % 11/29/2012 CBC 6392284 MON % 10.4 % 11/29/2012 CBC 0341933 EOS % 5.1 % 11/29/2012 CBC 3893401 BASO % 0.6 % 11/29/2012 CBC 8174509 RDW 13.8 % 11/29/2012 CBC 7506841 ABS LARA 4.61 10e9/L 11/29/2012 CBC 1451855 ABS LYMPH 2.44 10e9/L 11/29/2012 CBC 4263020 ABS MONO 0.87 10e9/L 11/29/2012 CBC 5409810 ABS EOS 0.43 10e9/L 11/29/2012 CBC 7005812 ABS BASO 0.05 10e9/L 11/29/2012 CBC 5231431 RDW-SD 45.9 fL 11/29/2012 CHEM 14 9254519 AST 25 U/L 11/29/2012 CHEM 14 2570473 ALT 26 IU/L 11/29/2012 CHEM 14 7992730 BUN 25 MG/DL 11/29/2012 CHEM 14 7666683 ALBUMIN 4.4 GM/DL 11/29/2012 CHEM 14 5651764 CHLORIDE 106 MMOL/L 11/29/2012 CHEM 14 8364624 BILI TOT 0.4 MG/DL 11/29/2012 CHEM 14 9238794 ALK PHOS 86 U/L 11/29/2012 CHEM 14 2397333 SODIUM 141 MMOL/L 11/29/2012 CHEM 14 8099864 CREATININE 0.80 MG/DL 11/29/2012 CHEM 14 7949150 CALCIUM 9.7 MG/DL 11/29/2012 CHEM 14 4578525 POTASSIUM 4.0 MMOL/L 11/29/2012 CHEM 14 2851277 PROT TOT 6.6 GM/DL 11/29/2012 CHEM 14 3959359 GLUCOSE 112 MG/DL 11/29/2012 CHEM 14 1763420 BICARB 29 MMOL/L 11/29/2012 CHEM 14 8945984 ANION GAP 6 MEQ/L 11/29/2012 A1C HPLC 4394013 A1C HPLC 12688-9 5.5 % 11/29/2012 LIPID GRP HDL TEST 54 MG/DL 11/29/2012 LIPID GRP TRIG 77 MG/DL 11/29/2012 LIPID GRP TEST LDL 78 MG/DL 11/29/2012 LIPID GRP CHOL 147 MG/DL 11/29/2012 LIPID GRP RCHOL/HDL 2.72 RATIO 11/29/2012 FREE T4 2901290 FREE T4 1.23 NG/DL 11/29/2012 GFR CALC 9377886 GFR AA >60 ML/MIN 11/29/2012 GFR CALC 6212918 GFR NON-AA >60 ML/MIN 11/29/2012 CHEM 14 2485841 AST 23 U/L 08/07/2012 CHEM 14 3756501 ALT 34 IU/L 08/07/2012 CHEM 14 0234686 BUN 26 MG/DL 08/07/2012 CHEM 14 7157056 ALBUMIN 4.4 GM/DL 08/07/2012 CHEM 14 2267774 CHLORIDE 105 MMOL/L 08/07/2012 CHEM 14 0144891 BILI TOT 0.5 MG/DL 08/07/2012 CHEM 14 4733314 ALK PHOS 79 U/L 08/07/2012 CHEM 14 1919331 SODIUM 140 MMOL/L 08/07/2012 CHEM 14 9290988 CREATININE 0.71 MG/DL 08/07/2012 CHEM 14 6425802 CALCIUM 10.4 MG/DL 08/07/2012 CHEM 14 5713385 POTASSIUM 3.8 MMOL/L 08/07/2012 CHEM 14 5259238 PROT TOT 6.8 GM/DL 08/07/2012 CHEM 14 6738442 GLUCOSE 104 MG/DL 08/07/2012 CHEM 14 4870545 BICARB 27 MMOL/L 08/07/2012 CHEM 14 1747641 ANION GAP 8 MEQ/L 08/07/2012 A1C HPLC 7656991 A1C HPLC 43099-3 5.4 % 08/07/2012 FREE T4 6226488 FREE T4 1.11 NG/DL 08/07/2012 LIPID GRP HDL TEST 50 MG/DL 08/07/2012 LIPID GRP TRIG 127 MG/DL 08/07/2012 LIPID GRP TEST LDL 93 MG/DL 08/07/2012 LIPID GRP CHOL 168 MG/DL 08/07/2012 LIPID GRP RCHOL/HDL 3.36 RATIO 08/07/2012 CBC 4627290 WBC 8.7 10e9/L 08/07/2012 CBC 7454353 RBC 4.67 10e12/L 08/07/2012 CBC 9354251 HGB 14.4 g/dL 08/07/2012 CBC 6711232 HCT DET 42.8 % 08/07/2012 CBC 4380759 MCV 91.6 fL 08/07/2012 CBC 8738831 MCH 30.8 pg 08/07/2012 CBC 6078683 MCHC 33.6 g/dL 08/07/2012 CBC 7434655 PLT 271 10e9/L 08/07/2012 CBC 4175334 MPV 12.3 fL 08/07/2012 CBC 3202674 LARA % 50.6 % 08/07/2012 CBC 6925793 LY % 34.9 % 08/07/2012 CBC 8569171 MON % 9.1 % 08/07/2012 CBC 6166084 EOS % 5.1 % 08/07/2012 CBC 0351124 BASO % 0.3 % 08/07/2012 CBC 9358929 RDW 13.6 % 08/07/2012 CBC 2850958 ABS LARA 4.40 10e9/L 08/07/2012 CBC 7270659 ABS LYMPH 3.04 10e9/L 08/07/2012 CBC 4365066 ABS MONO 0.79 10e9/L 08/07/2012 CBC 0014419 ABS EOS 0.44 10e9/L 08/07/2012 CBC 7285624 ABS BASO 0.03 10e9/L 08/07/2012 CBC 5657454 RDW-SD 44.1 fL 08/07/2012 TSH 9354192 TSH 7.419 uIU/ML 08/07/2012 GFR CALC 0016730 GFR AA >60 ML/MIN 08/07/2012 GFR CALC 6468488 GFR NON-AA >60 ML/MIN 08/07/2012 A1C HPLC 0584961 A1C HPLC 90298-5 5.3 % 02/21/2012 TSH 5127821 TSH 0.832 uIU/ML 02/16/2012 FREE T4 6330805 FREE T4 1.04 NG/DL 02/16/2012 GFR CALC 4786409 GFR AA >60 ML/MIN 02/16/2012 GFR CALC 0422148 GFR NON-AA >60 ML/MIN 02/16/2012 BMP 1865320 GLUCOSE 112 MG/DL 02/16/2012 BMP 1000056 CREATININE 0.65 MG/DL 02/16/2012 BMP 7124396 BUN 17 MG/DL 02/16/2012 BMP 3613165 SODIUM 144 MMOL/L 02/16/2012 BMP 9788015 POTASSIUM 4.0 MMOL/L 02/16/2012 BMP 0258152 CHLORIDE 107 MMOL/L 02/16/2012 BMP 2323571 BICARB 29 MMOL/L 02/16/2012 BMP 5802421 ANION GAP 8 MEQ/L 02/16/2012 BMP 4438478 CALCIUM 9.5 MG/DL 02/16/2012 CBC 5283823 WBC 7.1 10e9/L 02/16/2012 CBC 7658302 RBC 4.47 10e12/L 02/16/2012 CBC 3673700 HGB 13.5 g/dL 02/16/2012 CBC 5083347 HCT DET 40.7 % 02/16/2012 CBC 7935574 MCV 91.1 fL 02/16/2012 CBC 8676358 MCH 30.2 pg 02/16/2012 CBC 7960436 MCHC 33.2 g/dL 02/16/2012 CBC 4007558 PLT 238 10e9/L 02/16/2012 CBC 0588292 MPV 11.4 fL 02/16/2012 CBC 2613340 LARA % 55.7 % 02/16/2012 CBC 1967636 LY % 29.6 % 02/16/2012 CBC 1986056 MON % 9.2 % 02/16/2012 CBC 7169275 EOS % 5.1 % 02/16/2012 CBC 3489283 BASO % 0.4 % 02/16/2012 CBC 4250344 RDW 13.0 % 02/16/2012 CBC 1679524 ABS LARA 3.95 10e9/L 02/16/2012 CBC 1669828 ABS LYMPH 2.10 10e9/L 02/16/2012 CBC 1259877 ABS MONO 0.65 10e9/L 02/16/2012 CBC 7162457 ABS EOS 0.36 10e9/L 02/16/2012 CBC 0079745 ABS BASO 0.03 10e9/L 02/16/2012 CBC 1615143 RDW-SD 42.4 fL 02/16/2012 URINALYSIS NONAUTO W/O SCOPE 54070 Specific [place] 1.015 DateTime(Free Text in Aprima) URINALYSIS NONAUTO W/O SCOPE 65543 PH 7 DateTime(Free Text in Aprima) URINALYSIS NONAUTO W/O SCOPE 65630 GLUCOSE neg DateTime(Free Text in Aprima) URINALYSIS NONAUTO W/O SCOPE 95457 Protein 1+ DateTime(Free Text in Apr[employer]) URINALYSIS NONAUTO W/O SCOPE 32399 Blood neg DateTime(Free Text in Aprima) URINALYSIS NONAUTO W/O SCOPE 12005 Bilirubin neg DateTime(Free Text in Aprima) URINALYSIS NONAUTO W/O SCOPE 99987 Ketones neg DateTime(Free Text in Aprima) URINALYSIS NONAUTO W/O SCOPE 96554 Urobilinogen neg DateTime(Free Text in Aprima) URINALYSIS NONAUTO W/O SCOPE 39019 Nitrite postive DateTime(Free Text in Aprima) URINALYSIS NONAUTO W/O SCOPE 71960 Leukocytes 3+ DateTime(Free Text in Aprima) URINALYSIS NONAUTO W/O SCOPE 03839 Specific [place] 1.030 DateTime(Free Text in Aprima) URINALYSIS NONAUTO W/O SCOPE 75221 PH 6 DateTime(Free Text in Aprima) URINALYSIS NONAUTO W/O SCOPE 55412 GLUCOSE neg DateTime(Free Text in Aprima) URINALYSIS NONAUTO W/O SCOPE 42987 Protein neg DateTime(Free Text in Aprima) URINALYSIS NONAUTO W/O SCOPE 37242 Blood neg DateTime(Free Text in Aprima) URINALYSIS NONAUTO W/O SCOPE 24355 Bilirubin neg DateTime(Free Text in Aprima) URINALYSIS NONAUTO W/O SCOPE 91207 Ketones neg DateTime(Free Text in Aprima) URINALYSIS NONAUTO W/O SCOPE 36165 Urobilinogen neg DateTime(Free Text in Aprima) URINALYSIS NONAUTO W/O SCOPE 81162 Nitrite neg DateTime(Free Text in Aprima) URINALYSIS NONAUTO W/O SCOPE 67611 Leukocytes trace DateTime(Free Text in Aprima) URINALYSIS NONAUTO W/O SCOPE 45738 Specific [place] 1.005 DateTime(Free Text in Aprima) URINALYSIS NONAUTO W/O SCOPE 16279 PH 5 DateTime(Free Text in Aprima) URINALYSIS NONAUTO W/O SCOPE 73464 GLUCOSE neg DateTime(Free Text in Aprima) URINALYSIS NONAUTO W/O SCOPE 16014 Protein neg DateTime(Free Text in Aprima) URINALYSIS NONAUTO W/O SCOPE 88820 Blood neg DateTime(Free Text in Aprima) URINALYSIS NONAUTO W/O SCOPE 79845 Bilirubin neg DateTime(Free Text in Aprima) URINALYSIS NONAUTO W/O SCOPE 74753 Ketones neg DateTime(Free Text in Aprima) URINALYSIS NONAUTO W/O SCOPE 27502 Urobilinogen neg DateTime(Free Text in Aprima) URINALYSIS NONAUTO W/O SCOPE 89556 Nitrite neg DateTime(Free Text in Aprima) URINALYSIS NONAUTO W/O SCOPE 04849 Leukocytes neg DateTime(Free Text in Aprima) UA 67100 Specific [place] 1.030 DateTime(Free Text in Aprima) UA 18038 PH 5 DateTime(Free Text in Aprima) UA 87989 GLUCOSE neg DateTime(Free Text in Aprima) UA 07213 Protein trace DateTime(Free Text in Aprima) UA 91160 Blood large DateTime(Free Text in Aprima) UA 39034 Bilirubin neg DateTime(Free Text in Aprima) UA 48477 Ketones neg DateTime(Free Text in ) UA 31977 Urobilinogen neg DateTime(Free Text in ) UA 37883 Nitrite neg DateTime(Free Text in ) UA 52533 Leukocytes large DateTime(Free Text in ) Review [...] Codes Date URINALYSIS NONAUTO W/O SCOPE CPT-4: 33447 07/10/2018 TRIAMCINOLONE ACET INJ NOS CPT-4: J3301 05/28/2018 ROCEPHIN, PER 250 MG CPT- 4: J0696 05/28/2018 ROCEPHIN, PER 250 MG CPT- 4: J0696 01/19/2018 TRIAMCINOLONE ACET INJ NOS CPT-4: J3301 01/19/2018 PPPS, SUBSEQ VISIT CPT- 4: G0439 11/23/2017 TRIAMCINOLONE ACET INJ NOS CPT-4: J3301 06/27/2017 THER/PROPH/DIAG INJ SC/IM CPT-4: 10878 04/20/2017 TRIAMCINOLONE ACET INJ NOS CPT-4: J3301 04/20/2017 TRIAMCINOLONE ACET INJ NOS CPT-4: J3301 03/14/2017 ROCEPHIN, PER 250 MG CPT- 4: J0696 03/14/2017 DESTRUCT PREMALG LESION CPT-4: 15692 12/05/2016 DESTRUCT PREMALG LES 2-14 CPT-4: 54443 12/05/2016 URINALYSIS NONAUTO W/O SCOPE CPT-4: 08233 11/28/2016 ROCEPHIN, PER 250 MG CPT- 4: J0696 11/28/2016 PPPS, SUBSEQ VISIT CPT- 4: G0439 11/07/2016 THER/PROPH/DIAG INJ SC/IM CPT-4: 98090 11/07/2016 TRIAMCINOLONE ACET INJ NOS CPT-4: J3301 11/07/2016 ROCEPHIN, PER 250 MG CPT- 4: J0696 11/07/2016 THER/PROPH/DIAG INJ SC/IM CPT-4: 15642 08/15/2016 TRIAMCINOLONE ACET INJ NOS CPT-4: J3301 08/15/2016 ROCEPHIN, PER 250 MG CPT- 4: J0696 08/15/2016 URINALYSIS NONAUTO W/O SCOPE CPT-4: 47639 05/05/2016 ROCEPHIN, PER 250 MG CPT- 4: J0696 12/07/2015 TRIAMCINOLONE ACET INJ NOS CPT-4: J3301 11/24/2015 ROCEPHIN, PER 250 MG CPT- 4: J0696 11/24/2015 THER/PROPH/DIAG INJ SC/IM CPT-4: 74041 11/24/2015 THER/PROPH/DIAG INJ SC/IM CPT-4: 73207 08/27/2015 KETOROLAC TROMETHAMINE INJ CPT-4: J1885 08/27/2015 PROMETHAZINE HCL INJECTION CPT-4: J2550 08/27/2015 THER/PROPH/DIAG INJ SC/IM CPT-4: 87900 08/10/2015 TRIAMCINOLONE ACET INJ NOS CPT-4: J3301 08/10/2015 ROCEPHIN, PER 250 MG CPT- 4: J0696 08/10/2015 C WOUN RTS (CULTURE OTHR SPECIMN AEROBIC) CPT-4: 78667 07/28/2015 THER/PROPH/DIAG INJ SC/IM CPT-4: 93446 03/19/2015 TRIAMCINOLONE ACET INJ NOS CPT-4: J3301 03/19/2015 ROCEPHIN, PER 250 MG CPT- 4: J0696 06/23/2014 TRIAMCINOLONE ACET INJ NOS CPT-4: J3301 06/23/2014 INJ TRIGGER POINT 1/2 MUSCL CPT-4: 64774 06/05/2014 URINALYSIS NONAUTO W/O SCOPE CPT-4: 06606 02/11/2014 URINALYSIS NONAUTO W/O SCOPE CPT-4: 12208 10/15/2013 ROCEPHIN, PER 250 MG CPT- 4: J0696 09/24/2013 THER/PROPH/DIAG INJ SC/IM CPT-4: 78110 09/19/2013 ROCEPHIN, PER 250 MG CPT- 4: J0696 09/19/2013 PRESCRIP TRANSMIT VIA ERX SY CPT-4: G8553 08/05/2013 ROCEPHIN, PER 250 MG CPT- 4: J0696 07/10/2013 THER/PROPH/DIAG INJ SC/IM CPT-4: 00080 07/10/2013 TRIAMCINOLONE ACET INJ NOS CPT-4: J3301 07/10/2013 PRESCRIP TRANSMIT VIA ERX SY CPT-4: G8553 07/10/2013 39780 EST. PATIENT, LEVEL III CPT-4: 12430 06/03/2013 PRESCRIP TRANSMIT VIA ERX SY CPT-4: G8553 06/03/2013 PRESCRIP TRANSMIT VIA ERX SY CPT-4: G8553 05/07/2013 ROUTINE VENIPUNCTURE CPT- 4: 63844 04/30/2013 ROUTINE VENIPUNCTURE CPT- 4: 47977 11/29/2012 TRIAMCINOLONE ACET INJ NOS CPT-4: J3301 09/24/2012 THER/PROPH/DIAG INJ SC/IM CPT-4: 09098 09/24/2012 URINALYSIS NONAUTO W/O SCOPE CPT-4: 96772 09/24/2012 PRESCRIP TRANSMIT VIA ERX SY CPT-4: G8553 09/24/2012 PRESCRIP TRANSMIT VIA ERX SY CPT-4: G8553 09/10/2012 PRESCRIP TRANSMIT VIA ERX SY CPT-4: G8553 08/08/2012 ROUTINE VENIPUNCTURE CPT- 4: 49124 08/07/2012 ROUTINE VENIPUNCTURE CPT- 4: 24533 02/16/2012 URINALYSIS NONAUTO W/O SCOPE CPT-4: 25987 02/15/2012 ROCEPHIN, PER 250 MG CPT- 4: J0696 02/15/2012 PRESCRIP TRANSMIT VIA ERX SY CPT-4: G8553 02/15/2012 ROUTINE VENIPUNCTURE CPT- 4: 23898 11/08/2011 ROCEPHIN, PER 250 MG CPT- 4: J0696 07/14/2011 THER/PROPH/DIAG INJ SC/IM CPT-4: 12491 07/14/2011 Influenza Virus Vaccine, Split Virus, >3 Yrs, IM CPT-4: 48615 05/23/2011 IMMUNIZATION ADMIN CPT- 4: 15874 05/23/2011 THER/PROPH/DIAG INJ SC/IM CPT-4: 07856 05/03/2011 ROCEPHIN, PER 250 MG CPT- 4: J0696 05/03/2011 TRIAMCINOLONE ACET INJ NOS CPT-4: J3301 05/03/2011 Vital Signs Date Vital 11/13/2018 Blood Pressure 1: 184/98 Code: 8480-6 BMI: 32.1 Code: 16150-6 Heart Rate 1: 68 bpm Height: 4'11" SpO2: 96% Weight: 159 lbs 10/30/2018 Blood Pressure 1: 158/98 Code: 8480-6 BMI: 31.7 Code: 99538-6 Heart Rate 1: 80 bpm Height: 4'11" SpO2: 96% Weight: 157 lbs 10/08/2018 Blood Pressure 1: 140/80 Code: 8480-6 BMI: 32.1 Code: 54015-1 Heart Rate 1: 92 bpm Height: 4'11" SpO2: 103% Weight: 159 lbs 07/16/2018 Blood Pressure 1: 142/80 Code: 8480-6 BMI: 31.1 Code: 94754-6 Heart Rate 1: 78 bpm Height: 4'11" SpO2: 98% Weight: 154 lbs 07/10/2018 Blood Pressure 1: 156/82 Code: 8480-6 BMI: 31.1 Code: 97335-6 Heart Rate 1: 63 bpm Height: 4'11" SpO2: 99% Weight: 154 lbs 05/28/2018 Blood Pressure 1: 142/80 Code: 8480-6 Heart Rate 1: 82 bpm Height: SpO2: 97% Temperature: 35.9 (C) / 96.6 (F) Weight: 02/07/2018 Height: Weight: 01/19/2018 Blood Pressure 1: 128/76 Code: 8480-6 BMI: 31.2 Code: 49844-9 Heart Rate 1: 71 bpm Height: 4'11" SpO2: 96% Temperature: 36.5 (C) / 97.7 (F) Weight: 154 lbs 8 oz 11/23/2017 Blood Pressure 1: 146/80 Code: 8480-6 BMI: 31.7 Code: 71583-8 Heart Rate 1: 64 bpm Height: 4'11" SpO2: 97% Waist Measure (cm): 89 cm Weight: 157 lbs 09/12/2017 Blood Pressure 1: 140/86 Code: 8480-6 Heart Rate 1: 62 bpm SpO2: 96% Temperature: 36.6 (C) / 97.8 (F) Weight: 153 lbs 07/25/2017 Blood Pressure 1: 140/72 Code: 8480-6 BMI: 31.3 Code: 89422-6 Heart Rate 1: 76 bpm Height: 4'11" SpO2: 97% Temperature: 37.2 (C) / 99.0 (F) Weight: 155 lbs 06/27/2017 Blood Pressure 1: 144/84 Code: 8480-6 BMI: 31.1 Code: 14665-0 Heart Rate 1: 63 bpm Height: 4'11" SpO2: 99% Temperature: 36.4 (C) / 97.6 (F) Weight: 154 lbs 05/08/2017 Blood Pressure 1: 142/86 Code: 8480-6 BMI: 30.9 Code: 90430-2 Height: 4'11" Temperature: 36.3 (C) / 97.4 (F) Weight: 153 lbs 03/14/2017 Blood Pressure 1: 146/82 Code: 8480-6 BMI: 30.9 Code: 67302-3 Heart Rate 1: 64 bpm Height: 4'11" SpO2: 94% Weight: 153 lbs 02/20/2017 Blood Pressure 1: 142/80 Code: 8480-6 BMI: 30.9 Code: 60775-8 Heart Rate 1: 75 bpm Height: 4'11" SpO2: 97% Weight: 153 lbs 02/06/2017 Blood Pressure 1: 138/90 Code: 8480-6 BMI: 31.5 Code: 39681-9 Heart Rate 1: 61 bpm Height: 4'11" SpO2: 98% Weight: 156 lbs 12/05/2016 Blood Pressure 1: 122/72 Code: 8480-6 Heart Rate 1: 59 bpm Height: 4'11" SpO2: 98% Weight: 11/28/2016 Blood Pressure 1: 154/86 Code: 8480-6 BMI: 31.3 Code: 84285-8 Heart Rate 1: 64 bpm Height: 4'11" SpO2: 94% Temperature: 36.2 (C) / 97.2 (F) Weight: 155 lbs 11/07/2016 Blood Pressure 1: 128/64 Code: 8480-6 BMI: 31.5 Code: 12616-8 Heart Rate 1: 59 bpm Height: 4'11" SpO2: 97% Weight: 156 lbs 08/15/2016 Blood Pressure 1: 110/62 Code: 8480-6 BMI: 31.5 Code: 56938-5 Heart Rate 1: 76 bpm Height: 4'11" SpO2: 97% Weight: 156 lbs 06/07/2016 Blood Pressure 1: 120/80 Code: 8480-6 BMI: 32.9 Code: 72901-8 Heart Rate 1: 63 bpm Height: 4'11" SpO2: 93% Temperature: 36.5 (C) / 97.7 (F) Weight: 163 lbs 03/15/2016 Blood Pressure 1: 90/42 Code: 8480-6 Heart Rate 1: 65 bpm SpO2: 94% 03/14/2016 Blood Pressure 1: 188/110 Code: 8480-6 Heart Rate 1: 68 bpm SpO2: 96% 02/22/2016 Blood Pressure 1: 158/80 Code: 8480-6 BMI: 32.7 Code: 58478-4 Heart Rate 1: 71 bpm Height: 4'11" SpO2: 95% Weight: 162 lbs 12/07/2015 Blood Pressure 1: 140/88 Code: 8480-6 BMI: 32.9 Code: 41195-2 Heart Rate 1: 99 bpm Height: 4'11" SpO2: 94% Temperature: 35.9 (C) / 96.6 (F) Weight: 163 lbs 11/24/2015 Blood Pressure 1: 144/78 Code: 8480-6 BMI: 33.7 Code: 35495-7 Heart Rate 1: 60 bpm Height: 4'11" SpO2: 98% Temperature: 36.6 (C) / 97.9 (F) Weight: 167 lbs 08/27/2015 Blood Pressure 1: 164/82 Code: 8480-6 BMI: 32.3 Code: 78946-3 Heart Rate 1: 60 bpm Height: 4'11" SpO2: 93% Weight: 160 lbs 08/10/2015 Blood Pressure 1: 130/60 Code: 8480-6 BMI: 32.5 Code: 80149-0 Heart Rate 1: 64 bpm Height: 4'11" SpO2: 97% Weight: 161 lbs 07/28/2015 Blood Pressure 1: 124/68 Code: 8480-6 BMI: 32.5 Code: 08751-4 Heart Rate 1: 69 bpm Height: 4'11" SpO2: 97% Weight: 161 lbs 06/11/2015 Blood Pressure 1: 148/80 Code: 8480-6 BMI: 32.9 Code: 41024-5 Heart Rate 1: 70 bpm Height: 4'11" SpO2: 94% Weight: 163 lbs 03/19/2015 Blood Pressure 1: 150/102 Code: 8480-6 Blood Pressure 2: 152/92 Code: 8480-6 BMI: 32.5 Code: 57938-5 Heart Rate 1: 71 bpm Height: 4'11" SpO2: 96% Weight: 161 lbs 01/07/2015 Blood Pressure 1: 126/84 Code: 8480-6 Heart Rate 1: 80 bpm Height: 4'11" 09/23/2014 Blood Pressure 1: 112/72 Code: 8480-6 BMI: 33.9 Code: 92597-9 Heart Rate 1: 72 bpm Height: 4'11" Weight: 168 lbs 08/05/2014 Blood Pressure 1: 140/86 Code: 8480-6 BMI: 33.3 Code: 48103-8 Height: 4'11" Weight: 165 lbs 06/23/2014 Blood Pressure 1: 132/70 Code: 8480-6 BMI: 32.9 Code: 73030-6 Heart Rate 1: 58 bpm Height: 4'11" Temperature: 36.0 (C) / 96.8 (F) Weight: 163 lbs 06/05/2014 Blood Pressure 1: 121/85 Code: 8480-6 BMI: 34.3 Code: 85608-6 Height: 4'11" Weight: 170 lbs 04/03/2014 Blood Pressure 1: 128/80 Code: 8480-6 Heart Rate 1: 88 bpm Weight: 167 lbs 03/07/2014 Blood Pressure 1: 122/82 Code: 8480-6 BMI: 33.9 Code: 82804-3 Heart Rate 1: 68 bpm Height: 4'11" Weight: 168 lbs 11/21/2013 Blood Pressure 1: 100/58 Code: 8480-6 BMI: 33.7 Code: 47263-6 Heart Rate 1: 64 bpm Height: 4'11" Weight: 167 lbs 09/24/2013 Blood Pressure 1: 148/88 Code: 8480-6 Heart Rate 1: 68 bpm Weight: 09/19/2013 Blood Pressure 1: 120/80 Code: 8480-6 BMI: 33.9 Code: 18147-8 Heart Rate 1: 80 bpm Height: 4'11" Temperature: 36.9 (C) / 98.5 (F) Weight: 168 lbs 08/05/2013 Blood Pressure 1: 128/80 Code: 8480-6 BMI: 34.3 Code: 51662-6 Heart Rate 1: 64 bpm Height: 4'11" Temperature: 36.2 (C) / 97.2 (F) Weight: 170 lbs 07/10/2013 Blood Pressure 1: 120/84 Code: 8480-6 BMI: 36.0 Code: 20461-9 Heart Rate 1: 90 bpm Height: 4'11" SpO2: 97% Temperature: 36.8 (C) / 98.2 (F) Weight: 178 lbs 06/03/2013 Blood Pressure 1: 136/94 Code: 8480-6 BMI: 34.7 Code: 97218-0 Heart Rate 1: 68 bpm Height: 4'11" Temperature: 36.7 (C) / 98.0 (F) Weight: 172 lbs 05/13/2013 Blood Pressure 1: 132/90 Code: 8480-6 Heart Rate 1: 68 bpm 05/07/2013 Blood Pressure 1: 168/100 Code: 8480-6 BMI: 34.3 Code: 16142-9 Heart Rate 1: 76 bpm Height: 4'11" Weight: 170 lbs 12/03/2012 Blood Pressure 1: 142/78 Code: 8480-6 BMI: 33.5 Code: 00834-8 Heart Rate 1: 76 bpm Height: 4'11" Weight: 166 lbs 09/24/2012 Blood Pressure 1: 116/70 Code: 8480-6 Heart Rate 1: 68 bpm Respiratory Rate: 16 bpm Temperature: 36.9 (C) / 98.4 (F) Weight: 162 lbs 09/10/2012 Blood Pressure 1: 116/80 Code: 8480-6 BMI: 33.7 Code: 93805-0 Heart Rate 1: 76 bpm Height: 4'11" [...] 1: 149/85 Code: 8480-6 BMI: 32.9 Code: 03369-1 Heart Rate 1: 79 bpm Height: 4'11" Weight: 164 lbs 05/03/2011 Blood Pressure 1: 122/79 Code: 8480-6 BMI: 30.8 Code: 70512-7 Heart Rate 1: 72 bpm Height: 5'1" Weight: 163 lbs 04/25/2011 Blood Pressure 1: 137/84 Code: 8480-6 BMI: 31.0 Code: 42717-3 Heart Rate 1: 63 bpm Height: 5'1" [...] days ago 02/15/2012 while visiting mother in [place] had uti and was put on pyridum [...] surg in december. then took trip to [facility] to see mother and has had [...] Quality chronic 08/01/2011 states went shopping on [employer] over night without taking any of medications [...] Encounters Encounter Performer Location Codes Date ( 68027 EST. PATIENT, LEVEL III Diagnosis: Essential (primary) hypertension[ICD10: I10] Shahida Goldman MD, [facility] CPT-4: 89352 11/13/2018 ([id number]) 41824 EST. PATIENT, LEVEL IV Diagnosis: Essential (primary) hypertension[ICD10: I10] Diagnosis: Mixed hyperlipidemia[ICD10: E78.2] Diagnosis: Hypothyroidism, unspecified[ICD10: E03.9] Shahida Goldman MD, [facility] CPT-4: 84980 10/30/2018 70321 EST. PATIENT, LEVEL III Diagnosis: Other mucopurulent conjunctivitis, bilateral[ICD10: H10.023] Diagnosis: Other allergic rhinitis[ICD10: J30.89] Shahida Goldman MD, [facility] CPT-4: 38179 10/08/2018 79238 EST. PATIENT, LEVEL III Diagnosis: Essential (primary) hypertension[ICD10: I10] Diagnosis: Generalized anxiety disorder[ICD10: F41.1] Isabelle Goldman MD, [facility] CPT-4: 07026 07/16/2018 ([id number]) 06951 EST. PATIENT, LEVEL III Diagnosis: Acute recurrent maxillary sinusitis[ICD10: J01.01] Diagnosis: Frequency of micturition[ICD10: R35.0] Diagnosis: Low back pain[ICD10: M54.5] Shahida Goldman MD, [facility] CPT-4: 37599 07/10/2018 ([id number]) 98117 EST. PATIENT, LEVEL III Diagnosis: Acute recurrent maxillary sinusitis[ICD10: J01.01] Shahida Goldman MD, [facility] CPT-4: 57935 05/28/2018 ([id number]) Miscellaneous no charge Diagnosis: Laceration without foreign body, left lower leg, subsequent encounter[ICD10: S81.812D] Diagnosis: Laceration without foreign body, right lower leg, subsequent encounter[ICD10: S81.811D] Isabelle Goldman MD, [facility] CPT-4: 50358 02/08/2018 40342 EST. PATIENT, LEVEL III Diagnosis: Cellulitis of left lower limb[ICD10: L03.116] Diagnosis: Cellulitis of right lower limb[ICD10: L03.115] Diagnosis: Laceration without foreign body, left lower leg, initial encounter[ICD10: S81.812A] Diagnosis: Laceration without foreign body, right lower leg, initial encounter[ICD10: S81.811A] Isabelle Goldman MD, [facility] CPT-4: 35589 02/07/2018 ([id number]) 68557 EST. PATIENT, LEVEL IV Diagnosis: Primary generalized (osteo)arthritis[ICD10: M15.0] Diagnosis: Acute recurrent maxillary sinusitis[ICD10: J01.01] Diagnosis: Low back pain[ICD10: M54.5] Diagnosis: Other allergic rhinitis[ICD10: J30.89] Diagnosis: Obstructive sleep apnea (adult) (pediatric)[ICD10: G47.33] Shahida Goldman MD, [facility] CPT-4: 34090 01/19/2018 54723 EST. PATIENT, LEVEL IV Diagnosis: Diarrhea, unspecified[ICD10: R19.7] Diagnosis: Generalized abdominal pain[ICD10: R10.84] Diagnosis: Other allergic rhinitis[ICD10: J30.89] Diagnosis: Other acute sinusitis[ICD10: J01.80] Isabelle Goldman MD, [facility] CPT- 4: 48209 09/12/2017 73285 EST. PATIENT, LEVEL III Diagnosis: Acute laryngopharyngitis[ICD10: J06.0] Diagnosis: Other allergic rhinitis[ICD10: J30.89] Diagnosis: Cough[ICD10: R05] Diagnosis: Wheezing[ICD10: R06.2] Isabelle Goldman MD, [facility] CPT-4: 98918 07/25/2017 ([id number]) 67123 EST. PATIENT, LEVEL IV Diagnosis: Acute recurrent maxillary sinusitis[ICD10: J01.01] Diagnosis: Cervicalgia[ICD10: M54.2] Diagnosis: Diarrhea, unspecified[ICD10: R19.7] Shahida Goldman MD, [facility] CPT-4: 11778 06/27/2017 ([id number]) 48046 EST. PATIENT, LEVEL III Diagnosis: Chronic maxillary sinusitis[ICD10: J32.0] Diagnosis: Gastro-esophageal reflux disease without esophagitis[ICD10: K21.9] Shahida Goldman MD, [facility] CPT-4: 81183 05/08/2017 ([id number]) 38923 EST. PATIENT, LEVEL III Diagnosis: Acute recurrent maxillary sinusitis[ICD10: J01.01] Shahida Goldman MD, [facility] CPT-4: 84190 03/14/2017 93291 EST. PATIENT, LEVEL IV Diagnosis: Epigastric pain[ICD10: R10.13] Diagnosis: Left upper quadrant pain[ICD10: R10.12] Diagnosis: Left lower quadrant pain[ICD10: R10.32] Isabelle Goldman MD, [facility] CPT-4: 48303 02/20/2017 ([id number]) 61296 EST. PATIENT, LEVEL IV Diagnosis: Generalized anxiety disorder[ICD10: F41.1] Diagnosis: Major depressive disorder, recurrent, moderate[ICD10: F33.1] Diagnosis: Left upper quadrant pain[ICD10: R10.12] Diagnosis: Epigastric pain[ICD10: R10.13] Diagnosis: Actinic keratosis[ICD10: L57.0] Melba Goldman MD, [facility] CPT-4: 75872 02/06/2017 ([id number]) 26220 EST. PATIENT, LEVEL III Diagnosis: Actinic keratosis[ICD10: L57.0] Diagnosis: Major depressive disorder, recurrent, moderate[ICD10: F33.1] Melba Goldman MD, [facility] CPT-4: 05195 12/05/2016 ([id number]) 15626 EST. PATIENT, LEVEL III Diagnosis: Acute recurrent maxillary sinusitis[ICD10: J01.01] Diagnosis: Dysuria[ICD10: R30.0] Shahida Goldman MD, [facility] CPT-4: 72553 11/28/2016 83567 EST. PATIENT, LEVEL IV Diagnosis: Other acute sinusitis[ICD10: J01.80] Diagnosis: Acute laryngopharyngitis[ICD10: J06.0] Diagnosis: Other allergic rhinitis[ICD10: J30.89] Isabelle Godlman MD, [facility] CPT- 4: 84625 08/15/2016 ([id number]) 45389 EST. PATIENT, LEVEL III Diagnosis: Acute recurrent maxillary sinusitis[ICD10: J01.01] Diagnosis: Low back pain[ICD10: M54.5] Shahida Goldman MD, [facility] CPT-4: 98861 06/07/2016 ([id number]) Miscellaneous no charge Diagnosis: Essential (primary) hypertension[ICD10: I10] Shahida Goldman MD, [facility] CPT-4: 63797 03/15/2016 84949 EST. PATIENT, LEVEL IV Diagnosis: Essential (primary) hypertension[ICD10: I10] Diagnosis: Headache[ICD10: R51] Diagnosis: Generalized anxiety disorder[ICD10: F41.1] Shahida Goldman MD, [facility] CPT-4: 42316 03/14/2016 65005 EST. PATIENT, LEVEL III Diagnosis: Laceration without foreign body, left lower leg, initial encounter[ICD10: S81.812A] Isabelle Goldman MD, [facility] CPT-4: 27830 02/22/2016 ([id number]) 94521 EST. PATIENT, LEVEL III Diagnosis: Acute recurrent maxillary sinusitis[ICD10: J01.01] Diagnosis: Cough[ICD10: R05] Diagnosis: Allergic rhinitis due to pollen[ICD10: J30.1] Shahida Goldman MD, [facility] CPT-4: 27500 12/07/2015 ([id number]) 88254 EST. PATIENT, LEVEL IV Diagnosis: Essential (primary) hypertension[ICD10: I10] Diagnosis: Acute recurrent maxillary sinusitis[ICD10: J01.01] Diagnosis: Generalized anxiety disorder[ICD10: F41.1] Diagnosis: Cervicalgia[ICD10: M54.2] Diagnosis: Generalized intra-abdominal and pelvic swelling, mass and lump[ICD10: R19.07] Melba Goldman MD, [facility] CPT-4: 91905 11/24/2015 63195 EST. PATIENT, LEVEL III Diagnosis: Other migraine, intractable, without status migrainosus[ICD10: G43.819] Isabelle Goldman MD, [facility] CPT-4: 82554 08/27/2015 13583 EST. PATIENT, LEVEL III Diagnosis: Acute recurrent maxillary sinusitis[ICD10: J01.01] Diagnosis: Candidal stomatitis[ICD10: B37.0] Diagnosis: Acute laryngopharyngitis[ICD10: J06.0] Isabelle Goldman MD, [facility] CPT- 4: 78920 08/10/2015 27413 EST. PATIENT, LEVEL III Diagnosis: Superficial foreign body of left hand, initial encounter[ICD10: S60.552A] Melba Goldman MD, [facility] CPT-4: 47280 07/28/2015 ([id number]) 23020 EST. PATIENT, LEVEL III Diagnosis: Essential (primary) hypertension[ICD10: I10] Diagnosis: Tinea cruris[ICD10: B35.6] Diagnosis: Abnormal levels of other serum enzymes[ICD10: R74.8] Shahida Goldman MD, [facility] CPT-4: 97574 06/11/2015 ([id number]) 97676 EST. PATIENT, LEVEL IV Diagnosis: ESSENTIAL HYPERTENSION[ICD9: 401.9] Diagnosis: Hypothyroid[ICD9: 244.9] Diagnosis: ALLERGIC RHINITIS[ICD9: 477.9] Diagnosis: Anxiety[ICD9: 300.00] Diagnosis: Sleep apnea[ICD9: 780.57] Shahida Goldman MD, [facility] CPT-4: 95259 03/19/2015 ([id number]) 71241 EST. PATIENT, LEVEL III Diagnosis: ACUTE SINUSITIS[ICD9: 461.9] Celi Goldman MD, [facility] CPT-4: 38119 01/07/2015 ([id number]) 88098 EST. PATIENT, LEVEL III Diagnosis: Conjunctivitis[ICD9: 372.30] Shahida Goldman MD, [facility] CPT-4: 96320 09/23/2014 86652 EST. PATIENT, LEVEL II Diagnosis: Noninfected skin tear of leg[ICD9: 891.0] Shahida Goldman MD [facility] CPT-4: 34575 08/05/2014 ([id number]) 86567 EST. PATIENT, LEVEL III Diagnosis: Chronic maxillary sinusitis[ICD9: 473.0] Shahida Goldman MD, [facility] CPT-4: 62190 06/23/2014 89469 EST. PATIENT, LEVEL II Diagnosis: Headache[ICD9: 784.0] Shahida Goldman MD, [facility] CPT-4: 72386 06/05/2014 ([id number]) 17430 EST. PATIENT, LEVEL III Diagnosis: Abrasion of right leg[ICD9: 916.0] Diagnosis: Headache[ICD9: 784.0] Diagnosis: ALLERGIC RHINITIS[ICD9: 477.9] Shahida Goldman MD, [facility] CPT-4: 35865 04/03/2014 18304 EST. PATIENT, LEVEL II Diagnosis: Tinea corporis[ICD9: 110.5] Diagnosis: Exposure to scabies[ICD9: V01.89] Shahida Goldman MD, [facility] CPT- 4: 81095 03/07/2014 ([id number]) 79827 EST. PATIENT, LEVEL III Diagnosis: ESSENTIAL HYPERTENSION[SNOMED: 02793321] Diagnosis: OSTEOARTH NOS-UNSPEC[ICD9: 715.90] Diagnosis: Lumbago[ICD9: 724.2] Diagnosis: Cervicalgia[ICD9: 723.1] Shahida Goldman MD, [facility] CPT-4: 01423 11/21/2013 ([id number]) 01437 EST. PATIENT, LEVEL III Diagnosis: DEPRESSIVE DISORDER NEC[ICD9: 311] Diagnosis: Paronychia[ICD9: 681.9] Melba Goldman MD, [facility] CPT-4: 24057 09/24/2013 ([id number]) 07196 EST. PATIENT, LEVEL III Diagnosis: Paronychia[ICD9: 681.9] Diagnosis: Cellulitis[ICD9: 682.9] Melba Goldman MD [facility] CPT-4: 90379 09/19/2013 ([id number]) 80788 EST. PATIENT, LEVEL III Diagnosis: Conjunctivitis[ICD9: 372.30] Diagnosis: Thrush[ICD9: 112.0] Shahida Goldman MD [facility] CPT-4: 48769 08/05/2013 ([id number]) 35484 EST. PATIENT, LEVEL III Diagnosis: ACUTE MAXILLARY SINUSITIS[ICD9: 461.0] Diagnosis: COUGH[ICD9: 786.2] Diagnosis: Insomnia[ICD9: 780.52] Diagnosis: ESOPHAGEAL REFLUX[ICD9: 530.81] Melba Goldman MD [facility] CPT-4: 57965 07/10/2013 ([id number]) Miscellaneous no charge Diagnosis: ESSENTIAL HYPERTENSION[SNOMED: 15831470] Melba Goldman MD [facility] CPT-4: 42819 05/13/2013 ([id number]) 41855 EST. PATIENT, LEVEL IV Diagnosis: ESSENTIAL HYPERTENSION[SNOMED: 72580448] Diagnosis: HYPOTHYROIDISM[ICD9: 244.9] Diagnosis: OSTEOARTH NOS-UNSPEC[ICD9: 715.90] Melba Goldman MD [facility] CPT- 4: 21330 05/07/2013 ([id number]) 30324 EST. PATIENT, LEVEL IV Diagnosis: Osteoarthritis[ICD9: 715.90] Diagnosis: Knee pain, bilateral[ICD9: 719.46] Diagnosis: Hip pain[ICD9: 719.45] Melba Goldman MD [facility] CPT-4: 29530 12/03/2012 ([id number]) 24136 EST. PATIENT, LEVEL III Diagnosis: Thrush[ICD9: 112.0] Melba Goldman MD [facility] CPT-4: 45249 09/24/2012 ([id number]) 40157 EST. PATIENT, LEVEL IV Diagnosis: ESSENTIAL HYPERTENSION[SNOMED: 65320992] Diagnosis: Thrush[ICD9: 112.0] Diagnosis: Sleep apnea[ICD9: 780.57] Melba Goldman MD [facility] CPT-4: 66988 09/10/2012 ([id number]) 32576 EST. PATIENT, LEVEL IV Diagnosis: Esophageal reflux[ICD9: 530.81] Diagnosis: Hypothyroid[ICD9: 244.9] Diagnosis: JOINT PAIN-MULT JOINTS[ICD9: 719.49] Diagnosis: ALLERGIC RHINITIS[ICD9: 477.9] Melba Goldman MD, [facility] CPT-4: 10121 08/08/2012 ([id number]) 04890 EST. PATIENT, LEVEL IV Diagnosis: Urinary frequency[ICD9: 788.41] Diagnosis: EDEMA[ICD9: 782.3] Diagnosis: HYPOTHYROIDISM[ICD9: 244.9] Diagnosis: Fatigue[ICD9: 780.79] Melba Goldman MD, [facility] CPT-4: 86988 02/15/2012 ([id number]) 88213 EST. PATIENT, LEVEL IV Diagnosis: Abdominal pain[ICD9: 789.00] Diagnosis: Fatigue[ICD9: 780.79] Diagnosis: Nausea[ICD9: 787.02] Melba Goldman MD, [facility] CPT-4: 55045 11/10/2011 54789 EST. PATIENT, LEVEL IV Diagnosis: ESSENTIAL HYPERTENSION[SNOMED: 08659104] Diagnosis: DIARRHEA[ICD9: 787.91] Diagnosis: DEPRESSIVE DISORDER NEC[ICD9: 311] Diagnosis: Irritable bowel disease[ICD9: 564.1] Melba Goldman MD, [facility] CPT- 4: 60503 08/01/2011 21854 EST. PATIENT, LEVEL III Diagnosis: ACUTE SINUSITIS[ICD9: 461.9] Diagnosis: Cough[ICD9: 786.2] Shahida Goldman MD, [facility] CPT-4: 36653 07/14/2011 19545 EST. PATIENT, LEVEL IV Diagnosis: VACCIN FOR INFLUENZA[ICD9: V04.81] Diagnosis: ESSENTIAL HYPERTENSION[SNOMED: 05143661] Diagnosis: GENERALIZED ANXIETY DISEASE[ICD9: 300.02] Diagnosis: SLEEP DISTURBANCES[ICD9: 780.50] Shahida Goldman MD, [facility] CPT- 4: 32061 05/23/2011 19746 EST. PATIENT, LEVEL III Diagnosis: ACUTE SINUSITIS[ICD9: 461.9] Diagnosis: ALLERGIC RHINITIS[ICD9: 477.9] Diagnosis: Cough[ICD9: 786.2] [facility] CPT-4: 75023 05/03/2011 66150 EST. PATIENT, LEVEL IV Diagnosis: ESSENTIAL HYPERTENSION[SNOMED: 46919588] Diagnosis: DEPRESSIVE DISORDER NEC[ICD9: 311] Diagnosis: Fatigue[ICD9: 780.79] [facility] CPT-4: 68620 04/25/2011 Plan of Care Planned Activity Notes Codes Status Date Visit Plan: Hypertension - uncontrolled - the [...] is to call for acute concerns. 11/13/2018 Patient Education: Patient Medication Summary Completed [...] call for acute concerns. Hyperlipidemia-check fasting labs Vsgafntychsmml-zwoohtz-ludfu labs 10/30/2018 Visit Plan: Hypertension - uncontrolled [...] call for acute concerns. Hyperlipidemia-check fasting labs Pxemmblhohwcmo-fofapnk-fsgxf labs 10/30/2018 [phone] [facility] Complex 10/30/2018 Patient Education: Patient Medication Summary Completed 10/30/2018 Visit Plan: Conjunctivitis - rx for eye drops/lube sent electronically to the patient's pharmacy. The patient has been instructed to cleanse affected eye with warm washcloth, then place medication into affected eye four times daily. 10/08/2018 Appointment: [phone] (30 min) Complex 10/08/2018 Patient Education: Patient Medication Summary Completed 10/08/2018 Appointment: Isabelle Orozco WPtel: [phone] [phone] (15 min) Moderate 07/30/2018 Visit Plan: [...] concerns. 07/16/2018 Appointment: [id number] (15 min) Moderate 07/16/2018 Patient Education: Patient [...] the consequences of over-medication. 07/10/2018 Appointment: Shahida Mazno WPtel: [phone] (15 min) Moderate 07/10/2018 Patient Education: Patient Medication Summary Completed 07/10/2018 Patient Education: Back Pain Completed 07/10/2018 Visit Plan: Sinusitis - Pt has acute infection - pain in face, maxillary region, Pt informed to use decongestant, RX given to patient, sinus rinses also recommended. Call if symptoms do not show improvement. 05/28/2018 Appointment: Shahida Manzo WPtel: [phone] (30 min) Complex 05/28/2018 Patient Education: [...] acute concerns. 02/07/2018 Appointment: Isabelle Orozco WPtel: [address] [place], [place] [id number] (15 min) Moderate 02/07/2018 Patient Education: Patient [...] less fatigue 01/19/2018 Appointment: Shahida Manzo WPtel: [address] [place], [place] [phone] (15 min) Moderate 01/19/2018 Patient Education: Patient [...] surrogate. 11/23/2017 Appointment: [phone] [id number] [facility] - Annual Wellness Visit 11/23/2017 [...] improvement. 09/12/2017 Appointment: Isabelle Orozco WPtel: [phone] [facility] (15 min) Moderate 09/12/2017 Patient Education: [...] spray. 07/25/2017 Appointment: Isabelle Orozco WPtel: [phone] [facility] (30 min) Complex 07/25/2017 Patient Education: [...] available 06/27/2017 Appointment: Shahida Manzo WPtel: [phone] [phone] [place] (15 min) Moderate 06/27/2017 Patient Education: [...] improving. 05/08/2017 Appointment: Shahida Manzo WPtel: [phone] [phone] (15 min) Moderate 05/08/2017 Patient Education: [...] improvement. 03/14/2017 Appointment: Shahida Manzo WPtel: [phone] [phone] [place] (15 min) Moderate 03/14/2017 Patient Education: Patient Medication Summary Completed 03/14/2017 Appointment: Shahida Manzo WPtel: [phone] [phone] [place] (15 min) Moderate 02/21/2017 Visit [...] improving. 02/20/2017 Appointment: Isabelle Orozco WPtel: [phone] [facility] [place] (30 min) Complex 02/20/2017 Patient [...] use 02/06/2017 App[facility]ment: [phone] (15 min) Moderate 02/06/2017 Patient [...] patient. 12/05/2016 Appointment: Melba Goldman WPtel: [phone] [facility] Surgical Procedure 12/05/2016 Patient Education: Patient Medication Summary Completed 12/05/2016 Visit Plan: Sinusitis - Pt has acute infection - pain in face, maxillary region, Pt informed to use decongestant, RX given to patient, sinus rinses also recommended. Call if symptoms do not show improvement. Dysuria- culture urine 11/28/2016 Appointment: Shahida Manzo WPtel: [phone] [phone] (15 min) Moderate 11/28/2016 Patient Education: [...] control. 11/07/2016 Appointment: Isabelle Orozco WPtel: [phone] [facility] [facility] - Annual Wellness Visit 11/07/2016 [...] [phone] (15 min) Moderate 08/15/2016 Patient Education: [...] use. 06/07/2016 Appointment: Shah[facility]el[phone] (10 min) Simple 06/07/2016 Patient Education: [...] today 03/14/2016 Appointment: Shahida Manzo WPtel: [phone] [phone] (15 min) Moderate 03/14/2016 Patient Education: Patient Medication Summary Completed 03/14/2016 Care Plan: COMPLETE CBC AUTOMATED LOINC : 62086-2 Pending 03/14/2016 Visit Plan: Cellulitis - The patient was instructed in appropriate wound care. The patient was instructed to use the antibiotic ointment as per RX. The patient is to call for any change in symptoms, increase in size of the lesion, increase in pain. 02/22/2016 Appointment: Isabelle [facility]rozco [facility]Ptel[phone] (15 min) Moderate 02/22/2016 Patient [...] dai 11/24/2015 Appointment: [facility]Ptel[phone] (30 min) Complex 11/24/2015 Patient Education: Patient Medication Summary Completed 11/24/2015 Patient Education: Obesity Completed 11/24/2015 Patient Education: Hypertension Completed 11/24/2015 Patient Education: .Cervicalgia Neck Pain Completed 11/24/2015 Care Plan: Referral Order SNOMED-CT : [id number] Ordered 11/24/2015 Visit Plan: Acute Migraine - [...] to monitor 06/11/2015 Appointment: Shahida Manzo WPtel: [address] [place], [place] [phone] (15 min) Moderate 06/11/2015 Patient Education: Patient [...] OFFICE Sleep apnea-patient needs new CPAP-will contact [facility] patient Pt reports that she uses [...] Sleep apnea-patient needs new CPAP-will contact [facility] 03/19/2015 Appointment: (15 min) Moderate 03/19/2015 [...] Completed 01/07/2015 Patient Education: [facility] - Saving AutoInj - 18+ - Dynamic [...] areas dry Exposure to scabies-RX sent to [facility] pharmacy. 03/07/2014 Appointment: Melba Goldman WPtel: [facility] [place] rash 03/07/2014 Patient Education: Patient Medication [...] change in blood pressure readings at home. Ldssnrt-jdzjcejbdse-oawlczed duragesic patch-appt with Dr Ortiz for pain management 11/21/2013 Appointment: Shahida Manzo WPtel: [phone] [place] Follow up 11/21/2013 Patient Education: Patient Medication Summary Completed 11/21/2013 Patient Education: Hypertension Completed 11/21/2013 Patient Education: .Cervicalgia Neck Pain Completed 11/21/2013 Appointment: Melba Goldman WPtel: [phone] [facility] Other 11/19/2013 Appointment: Melba Goldman WPtel: [facility] [place] [address] Follow up 11/06/2013 Appointment: Melba Goldman WPtel: [address] [place] [address] Lab Draw 10/15/2013 Patient Education: Patient Medication [...] AT BEDTIME 09/24/2013 Appointment: Shahida Manzo WPtel: [address] [place], [place] [phone] [place] [address] Other 09/24/2013 Patient Education: Patient Medication Summary Completed 09/24/2013 Visit Plan: Paronychia/Cellulitis - continue with oral antibiotics as previously directed, return to clinic as previously directed, call for acute change in symptoms, worsening redness, warmth, discharge. 09/19/2013 Appointment: Melba Goldman WPtel: [address] [place] [address] Other 09/19/2013 Patient Education: Patient Medication Summary Completed 09/19/2013 Visit Plan: Conjunctivitis - rx for eye drops/lube sent electronically to the patient's pharmacy. The patient has been instructed to cleanse affected eye with warm washcloth, then place medication into affected eye four times daily. Thrush-refill nystatin-call if symptoms do not resolve 08/05/2013 Appointment: Shahida Manzo WPtel: [address] [place], [place] [phone] Sick 08/05/2013 Patient Education: Patient Medication Summary [...] show improvement. 06/03/2013 Appointment: Melba Goldman WPtel: [address] [place], [place] [address] Follow up 06/03/2013 Patient Education: Patient Medication Summary Completed 06/03/2013 Patient Education: Hypertension Completed 06/03/2013 Appointment: Melba Goldman WPtel: [address] [place], [place] [address] [place] Nurse Visit 05/13/2013 Patient Education: Patient [...] control. 05/07/2013 Appointment: Melba Goldman WPtel: [phone] [facility] Follow up 05/07/2013 Patient Education: Patient Medication Summary Completed 05/07/2013 Patient Education: Hypertension Completed 05/07/2013 Patient Education: Patient Medication Summary Completed 04/30/2013 Patient Education: Hypertension Completed 04/30/2013 Visit Plan: Arthritis- occasionally uncontrolled symptoms- recommend pt to take antiinflammatory as directed for pain control. Use tylenol for break through pain symptoms. 12/03/2012 Appointment: [facility]Ptel: [phone] Follow up 12/03/2012 Patient Education: Patient [...] not resolve 09/24/2012 Appointment: Shah[facility]Ptel[phone] Sick 09/24/2012 Patient Education: Patient Medication [...] with diflucan 09/10/2012 Appointment: Melba Goldman [facility]Ptel: [phone] Follow up 09/10/2012 Patient Education: Patient [...] symptoms. 08/08/2012 Appointment: Shahida [facility]Ptel: [phone] Follow up 08/08/2012 Patient Education: Patient Medication Summary Completed 08/08/2012 Patient Education: Patient Medication Summary Completed 08/07/2012 Patient Education: Hypertension Completed 08/07/2012 Appointment: Melba Goldman WPtel: [facility] Lab Draw 02/16/2012 Patient Education: Patient Medication [...] Needs labs. 02/15/2012 Appointment: Melba Goldman WPtel: [address] [place], [place] [phone] Other 02/15/2012 Patient Education: Patient Medication Summary Completed 02/15/2012 Visit Plan: Abdominal pain - ultrasound tomorrow AM nothing to eat before the ultrasound from 11pm tonight bland diet. Nausea - worse with fatty foods, recommended low fat/bland diet, call if symptoms worsening. 11/10/2011 Appointment: Melba Goldman WPtel: [address] [place], [place] [phone] Other 11/10/2011 Patient Education: Patient Medication Summary [...] stools. 08/01/2011 Appointment: Melba Goldman WPtel: [phone] Other 08/01/2011 Patient Education: Patient Medication Summary Completed 08/01/2011 Patient Education: High Blood Pressure: Essential Hypertension Completed 08/01/2011 Visit Plan: Sinusitis - Pt has acute infection - pain in face, maxillary region, Pt informed to use decongestant, RX given to patient, sinus rinses also recommended. Call if symptoms do not show improvement. Cough- kishore zurita 07/14/2011 Appointment: Shahida Manzo [facility]Ptel: [phone] [place] Other 07/14/2011 Patient Education: Patient [...] the office. 05/23/2011 Appointment: Shahida Manzo WPtel: [phone] [phone] [place] [address] Other 05/23/2011 Patient Education: Patient Medication Summary [...] cough med 05/03/2011 Appointment: Shahida Manzo WPtel: [phone] Other 05/03/2011 Patient Education: Patient Medication Summary [...] her symptoms. 04/25/2011 Appointment: Shahida Manzo WPtel: [address] [place], [place] [phone] Other 04/25/2011 Patient Education: Patient Medication Summary [...] needs new CPAP-will contact [facility] LOS[facility] 50MG DAILY MONITOR BLOOD [...] call for acute concerns. Hyperlipidemia-check fasting labs Rutinvbnhmdoer-ovryuyu-mliml labs LOSARTAN 50MG DAILY MONITOR BLOOD PRESSURE [...] call for acute concerns. Hyperlipidemia-check fasting labs Wlwpefdijwekon-lnmxmtb-wnjmd labs . Sinusitis - Pt has acute [...] areas dry Exposure to scabies-RX sent to [facility] pharmacy. rocephin/kenalog . Sinusitis [...] change in blood pressure readings at home. Oqbibya-tugtkfosrmo-kesmleyq duragesic patch-appt with Dr Ortiz for pain [...]
--- OUTSIDE RECORDS SUMMARY | 2019-03-08 15:22 | XMS REPORT | CCD ---
Author Author [facility] Address [address] [place] [address] Phone Care Team Providers Care Track Oiler Name Role Phone PP Unavailable CCM Unavailable Summary Purpose Interface Exchange Insurance Providers Payer name Policy type / Coverage type Covered democrat ID Effective Begin Date Effective End Date [employer] Medicare Part B [id number] Unknown Family history Son Diagnosis Age At Onset Crohn's disease Unknown Brother Diagnosis Age At Onset Cardiovascular disease Unknown Mother Diagnosis Age At Onset Hypertension Unknown Father Diagnosis Age At Onset Cardiovascular disease Unknown Social History Social History Element Codes Description Effective Dates Marital status Unknown 04/22/2011 Number of children Unknown 3 1 son -Crohns 04/22/[address]: 324298096 Nonsmoker 04/22/2011 Allergies, Adverse Reactions, Alerts Substance [...] hydrocodone 10 mg-acetaminophen 325 mg tablet RxNorm: 080735 Tablet(s) PO TAKE ONE TO TWO TABLETS BY MOUTH EVERY 6 HOURS NEEDED FOR PAIN 11/13/2018 11/27/2018 Active losartan 100 mg tablet RxNorm: 333673 1 Tablet(s) PO daily 11/13/2018 05/11/2019 Active Synthroid 112 mcg tablet RxNorm: 590641 1 Tablet(s) PO daily 11/01/2018 04/29/2019 Active Brand name only! Dosage change! Synthroid 112 mcg tablet RxNorm: 601223 1 Tablet(s) PO daily 11/01/2018 10/31/2018 Inactive Brand name only! Dosage change! losartan 50 mg tablet RxNorm: 260995 1 Tablet(s) PO daily 10/30/2018 11/12/2018 Inactive Tamiflu 75 mg capsule RxNorm: 782904 1 Capsule(s) PO daily 10/30/2018 11/08/2018 Inactive Synthroid 100 mcg tablet RxNorm: 019971 1 Tablet(s) PO daily 10/30/2018 10/31/2018 Inactive Brand name only! Lexapro 20 mg tablet RxNorm: 908560 TAKE ONE AND ONE-HALF TABLET BY MOUTH DAILY 10/23/2018 10/17/2019 Active alprazolam 0.25 mg tablet RxNorm: 341433 1 Tablet(s) PO TID as needed 10/10/2018 01/07/2019 Active polymyxin B sulfate 10,000 unit-trimethoprim 1 mg/mL eye drops RxNorm: 511903 2 Drop(s) ophthalmic (eye) QID 10/08/2018 10/14/2018 Inactive hydrocodone 10 mg-acetaminophen 325 mg tablet RxNorm: 768290 Tablet(s) PO TAKE ONE TO TWO TABLETS BY MOUTH EVERY 6 HOURS NEEDED FOR PAIN 09/11/2018 09/25/2018 Inactive piroxicam 20 mg capsule RxNorm: 585057 TAKE ONE CAPSULE BY MOUTH DAILY 08/09/2018 01/05/2019 Active trazodone 50 mg tablet RxNorm: 649061 TAKE ONE AND ONE-HALF (1 1/2) TABLET BY MOUTH AT BEDTIME. MAY INCREASE TO 2 TABLETS AT BEDTIME NEEDED 08/02/2018 11/19/2018 Active Nexium 40 mg capsule,delayed release RxNorm: 920623 TAKE ONE CAPSULE BY MOUTH TWICE A DAY 07/23/2018 11/19/2018 Active Bystolic 5 mg tablet RxNorm: 996789 1 Tablet(s) PO daily to take with 10 mg daily to equal 15mg daily 07/17/2018 10/29/2018 Inactive alprazolam 0.25 mg tablet RxNorm: 624742 1 Tablet(s) PO TID as needed 07/16/2018 10/29/2018 Inactive hydrocodone 10 mg-acetaminophen 325 mg tablet RxNorm: 402593 Tablet(s) PO TAKE ONE TO TWO TABLETS BY MOUTH EVERY 6 HOURS NEEDED FOR PAIN 07/10/2018 07/24/2018 Inactive prednisone 20 mg tablet RxNorm: 916420 1 Tablet(s) PO BID 07/10/2018 07/14/2018 Inactive Phenergan with Codeine Syrup RxNorm: 5-10 Milliliter(s) PO Q6 PRN 06/28/2018 No Stop Date Active prednisone 20 mg tablet RxNorm: 901142 2 Tablet(s) PO daily 05/31/2018 06/04/2018 Inactive prednisone 20 mg tablet RxNorm: 043226 2 Tablet(s) PO daily 05/31/2018 05/30/2018 Inactive ceftriaxone 500 mg solution for injection RxNorm: 9534493 Inj 05/28/2018 05/28/2018 Inactive doxycycline hyclate 100 mg tablet RxNorm: 2106921 1 Tablet(s) PO BID 05/28/2018 06/06/2018 Inactive Kenalog 40 mg/mL suspension for injection RxNorm: 7855495 Milliliter(s) Inj 05/28/2018 05/28/2018 Inactive hydrocodone 10 mg-acetaminophen 325 mg tablet RxNorm: 658166 Tablet(s) PO TAKE ONE TO TWO TABLETS BY MOUTH EVERY 6 HOURS NEEDED FOR PAIN 05/09/2018 05/23/2018 Inactive alprazolam 0.25 mg tablet RxNorm: 872945 1 Tablet(s) PO daily as needed 04/25/2018 07/15/2018 Inactive Bystolic 10 mg tablet RxNorm: 374632 TAKE ONE TABLET BY MOUTH DAILY 04/16/2018 09/12/2018 Inactive hydrocodone 10 mg-acetaminophen 325 mg tablet RxNorm: 662970 Tablet(s) PO TAKE ONE TO TWO TABLETS BY MOUTH EVERY 6 HOURS NEEDED FOR PAIN 03/06/2018 03/20/2018 Inactive trazodone 50 mg tablet RxNorm: 020230 TAKE ONE AND ONE-HALF (1 1/2) TABLET BY MOUTH AT BEDTIME. MAY INCREASE TO 2 TABLETS AT BEDTIME NEEDED 02/23/2018 06/12/2018 Inactive mupirocin 2 % topical ointment RxNorm: 586483 1 TOP BID 02/09/2018 05/27/2018 Inactive Zofran 4 mg tablet RxNorm: 640898 1 Tablet(s) PO TID as needed 02/08/2018 No Stop Date Active Keflex 500 mg capsule RxNorm: 062229 1 Capsule(s) PO TID 02/07/2018 02/13/2018 Inactive alprazolam 0.25 mg tablet RxNorm: 843172 1 Tablet(s) PO daily as needed 01/24/2018 07/09/2018 Inactive hydrocodone 10 mg-acetaminophen 325 mg tablet RxNorm: 245789 Tablet(s) PO TAKE ONE TO TWO TABLETS BY MOUTH EVERY 6 HOURS NEEDED FOR PAIN 01/19/2018 02/02/2018 Inactive hydrochlorothiazide 25 mg tablet RxNorm: 338633 Tablet(s) TAKE ONE TABLET BY MOUTH DAILY 01/19/2018 01/19/2018 Inactive Kenalog 40 mg/mL suspension for injection RxNorm: 3124906 1 Milliliter(s) Inj 01/19/2018 01/19/2018 Inactive piroxicam 20 mg capsule RxNorm: 711737 1 Capsule(s) PO daily 01/19/2018 07/17/2018 Inactive D/C ORDER FOR HCTZ ceftriaxone 500 mg solution for injection RxNorm: 7067434 500 Milligram(s) Inj 01/19/2018 01/19/2018 Inactive Nexium 40 mg capsule,delayed release RxNorm: 569832 TAKE ONE CAPSULE BY MOUTH TWICE A DAY 01/18/2018 04/17/2018 Inactive Nexium 40 mg capsule,delayed release RxNorm: 837546 TAKE ONE CAPSULE BY MOUTH TWICE A DAY 01/15/2018 04/14/2018 Inactive ciprofloxacin 0.3 % eye drops RxNorm: 941545 2 Drop(s) ophthalmic (eye) Q2H while awake x 2 days, then Q4H x 5 days 11/23/2017 05/27/2018 Inactive Keflex 500 mg capsule RxNorm: 085456 1 Capsule(s) PO TID 11/23/2017 11/29/2017 Inactive hydrocodone 10 mg-acetaminophen 325 mg tablet RxNorm: 215613 Tablet(s) PO TAKE ONE TO TWO TABLETS BY MOUTH EVERY 6 HOURS NEEDED FOR PAIN 10/30/2017 11/13/2017 Inactive Augmentin 500 mg-125 mg tablet RxNorm: 172457 1 Tablet(s) PO TID 10/27/2017 11/05/2017 Inactive alprazolam 0.25 mg tablet RxNorm: 908081 1 Tablet(s) PO daily as needed 10/26/2017 04/24/2018 Inactive trazodone 50 mg tablet RxNorm: 996065 TAKE ONE AND ONE-HALF (1 1/2) TABLET BY MOUTH AT BEDTIME. MAY INCREASE TO 2 TABLETS AT BEDTIME NEEDED 09/25/2017 02/03/2018 Inactive Lexapro 20 mg tablet RxNorm: 875207 TAKE ONE AND ONE-HALF TABLET BY MOUTH DAILY 09/15/2017 09/09/2018 Inactive Flagyl 500 mg tablet RxNorm: 526295 1 Tablet(s) PO TID 09/12/2017 09/21/2017 Inactive promethazine 25 mg tablet RxNorm: 999103 1 Tablet(s) PO TID as needed nausea and vomitting THIS WILL MAKE YOU SLEEPY 09/12/2017 11/08/2017 Inactive Keflex 500 mg capsule RxNorm: 466806 1 Capsule(s) PO QID 08/25/2017 08/31/2017 Inactive [SAVINGS FOR UNINSURED PATIENTS -- BIN:[id number], PCN: [id number], Group: [id number], ID# [id number], Process claim through [employer], for questions: . THIS IS NOT INSURANCE.] alprazolam 0.25 mg tablet RxNorm: 707440 1 Tablet(s) PO daily as needed 07/31/2017 04/24/2018 Inactive prednisone 20 mg tablet RxNorm: 908086 2 Tablet(s) PO daily 07/25/2017 07/29/2017 Inactive Augmentin 500 mg-125 mg tablet RxNorm: 275976 1 Tablet(s) PO TID 07/25/2017 08/03/2017 Inactive trazodone 50 mg tablet RxNorm: 708140 TAKE ONE AND ONE-HALF (1 1/2) TABLET BY MOUTH AT BEDTIME. MAY INCREASE TO 2 TABLETS AT BEDTIME NEEDED 06/30/2017 09/03/2017 Inactive Bystolic 10 mg tablet RxNorm: 480751 TAKE ONE TABLET BY MOUTH DAILY 06/30/2017 2017 Inactive hydrochlorothiazide 25 mg tablet RxNorm: 507787 TAKE ONE TABLET BY MOUTH DAILY 06/30/2017 01/18/2018 Inactive Flagyl 500 mg tablet RxNorm: 724783 1 Tablet(s) PO TID 06/27/2017 07/03/2017 Inactive Phenergan with Codeine Syrup RxNorm: 5-10 Milliliter(s) PO Q6 PRN 06/27/2017 11/15/2017 Inactive Levaquin 500 mg tablet RxNorm: 605918 1 Tablet(s) PO daily 06/27/2017 07/03/2017 Inactive Kenalog 40 mg/mL suspension for injection RxNorm: 5432557 1 Milliliter(s) Inj 06/27/2017 06/27/2017 Inactive Nexium 40 mg capsule,delayed release RxNorm: 437138 1 Capsule(s) PO BID TAKE ONE CAPSULE BY MOUTH BID 05/22/2017 09/18/2017 Inactive Nexium 40 mg capsule,delayed release RxNorm: 701284 1 Capsule(s) PO BID TAKE ONE CAPSULE BY MOUTH BID 05/22/2017 05/21/2017 Inactive hydrocodone 10 mg-acetaminophen 325 mg tablet RxNorm: 260259 Tablet(s) PO TAKE ONE TO TWO TABLETS BY MOUTH EVERY 6 HOURS NEEDED FOR PAIN 05/17/2017 06/15/2017 Inactive Nexium 40 mg capsule,delayed release RxNorm: 876207 Capsule(s) TAKE ONE CAPSULE BY MOUTH BID 05/17/2017 05/21/2017 Inactive alprazolam 0.25 mg tablet RxNorm: 220668 1 Tablet(s) PO daily as needed 05/03/2017 07/01/2017 Inactive Levaquin 500 mg tablet RxNorm: 696133 1 Tablet(s) PO daily 04/20/2017 04/26/2017 Inactive clotrimazole 1 % topical cream RxNorm: 556247 1 Application TOP BID 04/20/2017 11/07/2017 Inactive Kenalog 40 mg/mL suspension for injection RxNorm: 8600843 Milliliter(s) Inj 04/20/2017 04/20/2017 Inactive nystatin 100,000 unit/gram topical powder RxNorm: 027351 1 Gram(s) APPLY TOPICALLY TWO TIMES A DAY 04/10/2017 07/08/2017 Inactive trazodone 50 mg tablet RxNorm: 427504 TAKE ONE AND ONE-HALF (1 1/2) TABLET BY MOUTH AT BEDTIME. MAY INCREASE TO 2 TABLETS AT BEDTIME NEEDED 03/28/2017 06/23/2017 Inactive Augmentin 875 mg-125 mg tablet RxNorm: 554717 1 Tablet(s) PO BID 03/14/2017 03/20/2017 Inactive Kenalog 40 mg/mL suspension for injection RxNorm: 0795064 1 Milliliter(s) Inj 03/14/2017 03/14/2017 Inactive Lexapro 20 mg tablet RxNorm: 374815 1.5 Tablet(s) PO daily 03/08/2017 03/07/2017 Inactive Lexapro 20 mg tablet RxNorm: 866647 1.5 Tablet(s) PO daily 03/08/2017 07/05/2017 Inactive alprazolam 0.25 mg tablet RxNorm: 013451 1 Tablet(s) PO daily as needed 02/23/2017 04/23/2017 Inactive (Response to an electronic controlled substance refill request - RxReferenceNumber: [id number]) Flagyl 500 mg tablet RxNorm: 885633 1 Tablet(s) PO TID 02/20/2017 03/01/2017 Inactive promethazine 25 mg tablet RxNorm: 526491 1 Tablet(s) PO TID as needed nausea 02/20/2017 03/01/2017 Inactive Cipro 500 mg tablet RxNorm: 753010 1 Tablet(s) PO BID 02/20/2017 03/01/2017 Inactive Flagyl 500 mg tablet RxNorm: 326541 1 Tablet(s) PO TID 02/09/2017 02/15/2017 Inactive Trintellix 10 mg tablet RxNorm: 3040405 1 Tablet(s) PO QAM 02/06/2017 03/07/2017 Inactive Efudex 5 % topical cream RxNorm: 697568 1 Application TOP BID use on skin spot on nose 02/06/2017 02/15/2017 Inactive Bystolic 10 mg tablet RxNorm: 855367 TAKE ONE TABLET BY MOUTH DAILY 02/03/2017 06/02/2017 Inactive Imitrex 50 mg tablet RxNorm: 696140 TAKE ONE TABLET BY MOUTH EVERY 8 HOURS NEEDED MAY REPEAT IN 1 HOUR OF INITIAL DOSE. DISCONTINUE FIORICET 12/22/2016 02/19/2017 Inactive Nexium 40 mg capsule,delayed release RxNorm: 002989 TAKE ONE CAPSULE BY MOUTH EVERY DAY 12/21/2016 05/16/2017 Inactive Lexapro 20 mg tablet RxNorm: 299968 Tablet(s) TAKE ONE TABLET BY MOUTH DAILY 12/05/2016 02/05/2017 Inactive Augmentin 875 mg-125 mg tablet RxNorm: 898359 1 Tablet(s) PO BID 11/28/2016 12/04/2016 Inactive ceftriaxone 500 mg solution for injection RxNorm: 4955845 1 Milliliter(s) Inj 11/28/2016 11/28/2016 Inactive hydrocodone 10 mg-acetaminophen 325 mg tablet RxNorm: 989423 Tablet(s) PO TAKE ONE TO TWO TABLETS BY MOUTH EVERY 6 HOURS NEEDED FOR PAIN 11/28/2016 05/16/2017 Inactive (Appended: Controlled substance eRx refill - RxReferenceNumber: [id number]) prednisone 20 mg tablet RxNorm: 022431 2 Tablet(s) PO daily 11/28/2016 12/02/2016 Inactive trazodone 50 mg tablet RxNorm: 701552 Tablet(s) TAKE 1 AND 1/2 TABLETS EVERY NIGHT AT BEDTIME , MAY INCREASE TO 2 TABLETS AT BEDTIME NEEDED 11/21/2016 11/20/2016 Inactive Synthroid 100 mcg tablet RxNorm: 173209 1 Tablet(s) PO daily 11/21/2016 05/19/2017 Inactive Brand name only! trazodone 50 mg tablet RxNorm: 594855 TAKE 1 AND 1/2 TABLETS EVERY NIGHT AT BEDTIME , MAY INCREASE TO 2 TABLETS AT BEDTIME NEEDED 11/21/2016 08/01/2018 Inactive Synthroid 100 mcg tablet RxNorm: 680909 1 Tablet(s) PO daily TAKE ONE TABLET BY MOUTH DAILY 11/08/2016 11/20/2016 Inactive ceftriaxone 500 mg solution for injection RxNorm: 4060627 Inj 11/07/2016 11/07/2016 Inactive Kenalog 40 mg/mL suspension for injection RxNorm: 4268154 Milliliter(s) Inj 11/07/2016 11/07/2016 Inactive Xanax 0.25 mg tablet RxNorm: 579118 1 Tablet(s) PO daily as needed 10/31/2016 05/02/2017 Inactive alprazolam 0.25 mg tablet RxNorm: 992950 1 Tablet(s) PO daily as needed 10/21/2016 12/18/2016 Inactive (Response to an electronic controlled substance refill request - RxReferenceNumber: [id number]) hydrochlorothiazide 25 mg tablet RxNorm: 672106 TAKE ONE TABLET BY MOUTH DAILY 10/11/2016 04/08/2017 Inactive Xanax 0.25 mg tablet RxNorm: 651685 1 Tablet(s) PO daily as needed 08/23/2016 10/19/2016 Inactive Flonase Allergy Relief 50 mcg/actuation nasal spray,suspension RxNorm: 9033471 1 [place] NASAL daily 08/15/2016 No Stop Date Active amoxicillin 500 mg capsule RxNorm: 365389 1 Capsule(s) PO TID 08/15/2016 08/24/2016 Inactive Bystolic 10 mg tablet RxNorm: 949660 TAKE ONE TABLET BY MOUTH DAILY 08/01/2016 12/28/2016 Inactive trazodone 50 mg tablet RxNorm: 566904 TAKE 1 AND 1/2 TABLETS EVERY NIGHT AT BEDTIME , MAY INCREASE TO 2 TABLETS AT BEDTIME NEEDED 07/25/2016 11/11/2016 Inactive alprazolam 0.25 mg tablet RxNorm: 368557 1 Tablet(s) PO daily as needed 07/25/2016 08/22/2016 Inactive (Response to an electronic controlled substance refill request - RxReferenceNumber: [id number]) Imitrex 50 mg tablet RxNorm: 518923 1 Tablet(s) PO Q8 as needed may repeat x1 dose in 1 hour of inital dose. 07/13/2016 No Stop Date Active Lexapro 20 mg tablet RxNorm: 183969 TAKE 1/2 TABLET BY MOUTH DAILY FOR 10 DAYS, THEN TAKE ONE TABLET BY MOUTH DAILY 06/27/2016 11/23/2016 Inactive Synthroid 100 mcg tablet RxNorm: 927702 TAKE ONE TABLET BY MOUTH DAILY 06/20/2016 11/07/2016 Inactive Augmentin 500 mg-125 mg tablet RxNorm: 347703 1 Tablet(s) PO TID 06/07/2016 06/13/2016 Inactive hydrocodone 10 mg-acetaminophen 325 mg tablet RxNorm: 067969 Tablet(s) PO TAKE ONE TO TWO TABLETS BY MOUTH EVERY 6 HOURS NEEDED FOR PAIN 06/07/2016 11/27/2016 Inactive (Appended: Controlled substance eRx refill - RxReferenceNumber: [id number]) hydrochlorothiazide 25 mg tablet RxNorm: 268704 TAKE ONE TABLET BY MOUTH DAILY 03/14/2016 09/09/2016 Inactive Edarbi 40 mg tablet RxNorm: 9244439 1 Tablet(s) PO daily 03/14/2016 06/06/2016 Inactive trazodone 50 mg tablet RxNorm: 379224 Tablet(s) TAKE 1 AND 1/2 TABLET AT BEDTIME. MAY INCREASE TO 2 TABLETS IF NECESSARY 02/25/2016 07/05/2016 Inactive Imitrex 50 mg tablet RxNorm: 493175 1 Tablet(s) PO Q8 as needed may repeat x1 dose in 1 hour of inital dose. 02/25/2016 07/12/2016 Inactive dc fioricet Xanax 0.25 mg tablet RxNorm: 643929 1 Tablet(s) PO daily as needed 02/24/2016 07/21/2016 Inactive mupirocin 2 % topical ointment RxNorm: 433821 1 TOP BID 02/22/2016 11/08/2017 Inactive Bactrim DS 800 mg-160 mg tablet RxNorm: 176667 1 Tablet(s) PO BID 02/22/2016 03/02/2016 Inactive Fioricet 50 mg-325 mg-40 mg tablet RxNorm: 646145 Tablet(s) TAKE ONE TABLET BY MOUTH EVERY 4 HOURS NEEDED FOR headache 02/12/2016 02/24/2016 Inactive (Response to an electronic controlled substance refill request - RxReferenceNumber: [id number]) Fioricet 50 mg-325 mg-40 mg tablet RxNorm: 399778 Tablet(s) TAKE ONE TABLET BY MOUTH EVERY 4 HOURS NEEDED FOR headache 02/12/2016 02/11/2016 Inactive (Response to an electronic controlled substance refill request - RxReferenceNumber: [id number]) Nexium 40 mg capsule,delayed release RxNorm: 305526 TAKE ONE CAPSULE BY MOUTH EVERY DAY 02/01/2016 10/27/2016 Inactive Bystolic 10 mg tablet RxNorm: 450921 Tablet(s) TAKE ONE TABLET BY MOUTH DAILY 01/06/2016 07/03/2016 Inactive Xanax 0.25 mg tablet RxNorm: 737551 1 Tablet(s) PO daily as needed 12/28/2015 02/23/2016 Inactive Levaquin 500 mg tablet RxNorm: 441308 1 Tablet(s) PO daily take a probiotic daily 12/14/2015 02/11/2016 Inactive Levaquin 500 mg tablet RxNorm: 206195 1 Tablet(s) PO daily take a probiotic daily 12/14/2015 12/13/2015 Inactive prednisone 20 mg tablet RxNorm: 322129 1 Tablet(s) PO BID 12/07/2015 12/13/2015 Inactive Augmentin 875 mg-125 mg tablet RxNorm: 848045 1 Tablet(s) PO BID 12/07/2015 12/13/2015 Inactive ceftriaxone 500 mg solution for injection RxNorm: 0200601 Inj 12/07/2015 12/07/2015 Inactive Phenergan with Codeine Syrup RxNorm: 5-10 Milliliter(s) PO Q6 PRN 12/07/2015 06/26/2017 Inactive alprazolam 0.25 mg tablet RxNorm: 026421 1 Tablet(s) PO daily as needed 11/27/2015 12/25/2015 Inactive (Response to an electronic controlled substance refill request - RxReferenceNumber: [id number]) trazodone 50 mg tablet RxNorm: 449435 TAKE 1 AND 1/2 TABLET AT BEDTIME FOR 2 WEEKS, MAY INCREASE TO 2 TABLETS IF NECESSARY AFTER THAT 11/26/2015 02/24/2016 Inactive ceftriaxone 500 mg solution for injection RxNorm: 3362166 Milliliter(s) Inj 11/24/2015 11/24/2015 Inactive prednisone 10 mg tablet RxNorm: 800477 3 Tablet(s) PO daily 11/24/2015 11/28/2015 Inactive cefdinir 300 mg capsule RxNorm: 892750 1 Capsule(s) PO BID 11/24/2015 11/30/2015 Inactive Kenalog 40 mg/mL suspension for injection RxNorm: 6474785 1 Milliliter(s) Inj 11/24/2015 11/24/2015 Inactive Lexapro 20 mg tablet RxNorm: 029766 TAKE 1/2 TABLET BY MOUTH DAILY FOR 10 DAYS, THEN TAKE ONE TABLET BY MOUTH DAILY 11/23/2015 05/20/2016 Inactive Lipitor 10 mg tablet RxNorm: 729286 Tablet(s) TAKE ONE TABLET BY MOUTH EVERY DAY 10/26/2015 11/06/2016 Inactive Norvasc 10 mg tablet RxNorm: 197386 Tablet(s) PO TAKE ONE TABLET BY MOUTH EVERY DAY 10/26/2015 01/18/2018 Inactive hydrochlorothiazide 25 mg tablet RxNorm: 062293 TAKE ONE TABLET BY MOUTH DAILY 10/20/2015 01/17/2016 Inactive promethazine 25 mg/mL injection solution RxNorm: 232799 Milliliter(s) Inj 08/27/2015 08/27/2015 Inactive ketorolac 60 mg/2 mL intramuscular solution RxNorm: 276753 Milliliter(s) IM 08/27/2015 08/27/2015 Inactive alprazolam 0.25 mg tablet RxNorm: 382199 1 Tablet(s) PO daily as needed 08/27/2015 10/25/2017 Inactive (Response to an electronic controlled substance refill request - RxReferenceNumber: [id number]) Lexapro 20 mg tablet RxNorm: 773383 TAKE 1/2 TABLET BY MOUTH DAILY FOR 10 DAYS, THEN TAKE ONE TABLET BY MOUTH DAILY 08/13/2015 11/10/2015 Inactive Flonase 50 mcg/actuation nasal spray,suspension RxNorm: 412440 PLACE 1 SPRAY IN EACH NOSTRIL DAILY 08/13/2015 02/08/2016 Inactive Augmentin 500 mg-125 mg tablet RxNorm: 798018 1 Tablet(s) PO TID 08/10/2015 08/16/2015 Inactive Kenalog 40 mg/mL suspension for injection RxNorm: 1852113 Milliliter(s) Inj 08/10/2015 08/10/2015 Inactive ceftriaxone 500 mg solution for injection RxNorm: 1195428 Inj 08/10/2015 08/10/2015 Inactive nystatin 100,000 unit/mL oral suspension RxNorm: 757440 4 Milliliter(s) PO QID 08/10/2015 08/16/2015 Inactive trazodone 50 mg tablet RxNorm: 645390 TAKE 1 AND 1/2 TABLET AT BEDTIME FOR 2 WEEKS, MAY INCREASE TO 2 TABLETS IF NECESSARY AFTER THAT 07/31/2015 11/25/2015 Inactive ceftriaxone 500 mg solution for injection RxNorm: 4759782 1 Milliliter(s) Inj 07/28/2015 07/28/2015 Inactive Bactrim DS 800 mg-160 mg tablet RxNorm: 894936 1 Tablet(s) PO BID 07/28/2015 08/06/2015 Inactive Bactroban 2 % topical ointment RxNorm: 931500 1 Application TOP BID 07/28/2015 08/06/2015 Inactive Diflucan 150 mg tablet RxNorm: 879774 1 Tablet(s) PO daily 06/11/2015 06/17/2015 Inactive clotrimazole 1 % topical cream RxNorm: 984791 1 Application TOP BID 06/11/2015 07/10/2015 Inactive Bystolic 10 mg tablet RxNorm: 797075 TAKE ONE TABLET BY MOUTH DAILY 06/08/2015 12/04/2015 Inactive alprazolam 0.25 mg tablet RxNorm: 253412 1 Tablet(s) PO daily as needed 06/01/2015 08/25/2015 Inactive (Response to an electronic controlled substance refill request - RxReferenceNumber: [id number]) Fioricet 50 mg-325 mg-40 mg tablet RxNorm: 732864 Tablet(s) TAKE ONE TABLET BY MOUTH EVERY 4 HOURS NEEDED FOR headache 05/28/2015 06/08/2015 Inactive (Response to an electronic controlled substance refill request - RxReferenceNumber: [id number]) trazodone 50 mg tablet RxNorm: 963919 TAKE 1 AND 1/2 TABLET AT BEDTIME FOR 2 WEEKS, MAY INCREASE TO 2 TABLETS IF NECESSARY AFTER THAT 05/25/2015 08/22/2015 Inactive trazodone 50 mg tablet RxNorm: 963063 TAKE 1 AND 1/2 TABLET AT BEDTIME FOR 2 WEEKS, MAY INCREASE TO 2 TABLETS IF NECESSARY AFTER THAT 05/25/2015 05/24/2015 Inactive Synthroid 100 mcg tablet RxNorm: 231017 TAKE ONE TABLET BY MOUTH DAILY 04/23/2015 01/17/2016 Inactive Lipitor 10 mg tablet RxNorm: 071746 TAKE ONE TABLET BY MOUTH EVERY DAY 04/23/2015 10/25/2015 Inactive Kenalog 40 mg/mL suspension for injection RxNorm: 5928330 Milliliter(s) Inj 03/19/2015 03/19/2015 Inactive Lexapro 20 mg tablet RxNorm: 818227 1 Tablet(s) PO daily 03/19/2015 07/16/2015 Inactive 1/2 tab daily x 10 days then 1 tab daily hydrocodone 10 mg-acetaminophen 325 mg tablet RxNorm: 343451 Tablet(s) PO TAKE ONE TO TWO TABLETS BY MOUTH EVERY 6 HOURS NEEDED FOR PAIN 03/19/2015 06/06/2016 Inactive (Appended: Controlled substance eRx refill - RxReferenceNumber: [id number]) Carafate 1 gram tablet RxNorm: 346617 1 Tablet(s) PO AC & HS 03/19/2015 06/16/2015 Inactive dissolve in water and take as a slurry hydrochlorothiazide 25 mg tablet RxNorm: 297075 1 Tablet(s) PO daily 03/12/2015 09/07/2015 Inactive Nexium 40 mg capsule,delayed release RxNorm: 410896 TAKE ONE CAPSULE BY MOUTH EVERY DAY 02/26/2015 12/22/2015 Inactive Cymbalta 60 mg capsule,delayed release RxNorm: 057582 TAKE ONE CAPSULE BY MOUTH TWICE A DAY 02/23/2015 03/18/2015 Inactive alprazolam 0.25 mg tablet RxNorm: 849121 1 Tablet(s) PO daily as needed 02/11/2015 05/10/2015 Inactive (Response to an electronic controlled substance refill request - RxReferenceNumber: [id number]) trazodone 50 mg tablet RxNorm: 610759 TAKE 1 AND 1/2 TABLET AT BEDTIME FOR 2 WEEKS, MAY INCREASE TO 2 TABLETS IF NECESSARY AFTER THAT 01/27/2015 05/24/2015 Inactive Augmentin 500 mg-125 mg tablet RxNorm: 368645 1 Tablet(s) PO TID 01/07/2015 01/13/2015 Inactive gentamicin 0.3 % eye drops RxNorm: 728142 3 Drop(s) OPH QID 01/07/2015 01/13/2015 Inactive [AttnRPh: Saving apply/adjudicate RxGRP:[id number] RxBIN:[id number] RxPCN: ID#:[id number]] scopolamine 1.5 mg transdermal 72 hour patch RxNorm: 178724 1 Patch TD q72 hours 01/07/2015 11/23/2015 Inactive Synthroid 100 mcg tablet RxNorm: 103810 TAKE ONE TABLET BY MOUTH ONCE A DAY 01/06/2015 04/22/2015 Inactive nystatin 100,000 unit/gram topical powder RxNorm: 860532 APPLY TOPICALLY TWO TIMES A DAY 12/18/2014 03/17/2015 Inactive alprazolam 0.25 mg tablet RxNorm: 773823 TAKE ONE TABLET BY MOUTH DAILY NEEDED 10/30/2014 11/28/2014 Inactive (Response to an electronic controlled substance refill request - RxReferenceNumber: [id number]) alprazolam 0.25 mg tablet RxNorm: 511455 Tablet(s) TAKE ONE TABLET BY MOUTH DAILY 10/30/2014 10/29/2014 Inactive (Response to an electronic controlled substance refill request - RxReferenceNumber: [id number]) Lipitor 10 mg tablet RxNorm: 124728 TAKE ONE TABLET BY MOUTH EVERY DAY 10/30/2014 02/26/2015 Inactive alprazolam 0.25 mg tablet RxNorm: 704632 TAKE ONE TABLET BY MOUTH DAILY 10/07/2014 10/29/2014 Inactive (Response to an electronic controlled substance refill request - RxReferenceNumber: [id number]) alprazolam 0.25 mg tablet RxNorm: 533089 TAKE ONE TABLET BY MOUTH DAILY 10/06/2014 10/07/2014 Inactive (Response to an electronic controlled substance refill request - RxReferenceNumber: [id number]) alprazolam 0.25 mg tablet RxNorm: 535685 Tablet(s) TAKE ONE TABLET BY MOUTH EVERY DAY NEEDED 09/30/2014 10/06/2014 Inactive (Response to an electronic controlled substance refill request - RxReferenceNumber: [id number]) Fioricet 50 mg-325 mg-40 mg tablet RxNorm: 964183 Tablet(s) TAKE ONE TABLET BY MOUTH EVERY 4 HOURS NEEDED FOR headache 09/29/2014 10/12/2014 Inactive (Response to an electronic controlled substance refill request - RxReferenceNumber: [id number]) Bystolic 10 mg tablet RxNorm: 984216 1 Tablet(s) PO daily TAKE ONE TABLET BY MOUTH EVERY DAY 09/29/2014 04/26/2015 Inactive Bystolic 5 mg tablet RxNorm: 994474 TAKE 1 AND 1/2 TABLETS ONCE DAILY 09/24/2014 09/23/2014 Inactive Bystolic 5 mg tablet RxNorm: 601866 Tablet(s) TAKE 1 AND 1/2 TABLETS ONCE DAILY 09/24/2014 09/18/2015 Inactive gentamicin 0.3 % eye drops RxNorm: 116726 3 Drop(s) OPH QID 09/23/2014 09/29/2014 Inactive trazodone 50 mg tablet RxNorm: 841731 TAKE 1 AND 1/2 TABLET AT BEDTIME FOR 2 WEEKS, MAY INCREASE TO 2 TABLETS IF NECESSARY AFTER THAT 09/22/2014 01/26/2015 Inactive Fioricet 50 mg-325 mg-40 mg tablet RxNorm: 740816 TAKE ONE TABLET BY MOUTH EVERY 4 HOURS NEEDED FOR PAIN 09/17/2014 09/28/2014 Inactive (Response to an electronic controlled substance refill request - RxReferenceNumber: [id number]) Duragesic 50 mcg/hr transdermal patch RxNorm: 332853 1 TD q72 hours 08/07/2014 01/06/2015 Inactive [SAVINGS FOR UNINSURED PATIENTS -- BIN:[id number], PCN: ASPROD1, Group: [id number], ID# [id number], Process claim through [employer], for questions: . THIS IS NOT INSURANCE.] alprazolam 0.25 mg tablet RxNorm: 982537 TAKE ONE TABLET BY MOUTH EVERY DAY NEEDED 07/31/2014 08/29/2014 Inactive (Response to an electronic controlled substance refill request - RxReferenceNumber: [id number]) alprazolam 0.25 mg tablet RxNorm: 655677 1 Tablet(s) PO daily as needed TAKE ONE TABLET BY MOUTH EVERY DAY NEEDED 07/30/2014 08/01/2014 Inactive (Response to an electronic controlled substance refill request - RxReferenceNumber: [id number]) Diflucan 150 mg tablet RxNorm: 436393 1 Tablet(s) PO daily 06/25/2014 07/01/2014 Inactive [SAVINGS FOR UNINSURED PATIENTS -- BIN:[id number], PCN: ASPROD1, Group: [id number], ID# [id number], Process claim through [employer], for questions: . THIS IS NOT INSURANCE.] Kenalog 40 mg/mL suspension for injection RxNorm: 4410399 Milliliter(s) Inj 06/23/2014 06/23/2014 Inactive [SAVINGS FOR UNINSURED PATIENTS -- BIN:043860, PCN: ASPROD1, Group: [id number], ID# [id number], Process claim through [employer], for questions: . THIS IS NOT INSURANCE.] ceftriaxone 500 mg solution for injection RxNorm: 099917 Inj 06/23/2014 06/23/2014 Inactive [SAVINGS FOR UNINSURED PATIENTS -- BIN:193854, PCN: ASPROD1, Group: [id number], ID# [id number], Process claim through [employer], for questions: . THIS IS NOT INSURANCE.] Levaquin 500 mg tablet RxNorm: 471260 1 Tablet(s) PO daily 06/23/2014 07/13/2014 Inactive [SAVINGS FOR UNINSURED PATIENTS -- BIN:521045, PCN: ASPROD1, Group: [id number], ID# [id number], Process claim through [employer], for questions: . THIS IS NOT INSURANCE.] Duragesic 50 mcg/hr transdermal patch RxNorm: 287211 1 TD q72 hours 06/05/2014 08/06/2014 Inactive [SAVINGS FOR UNINSURED PATIENTS -- BIN:710535, PCN: ASPROD1, Group: TAB, ID# [id number], Process claim through [employer], for questions: . THIS IS NOT INSURANCE.] alprazolam 0.25 mg tablet RxNorm: 139643 1 Tablet(s) PO daily as needed TAKE ONE TABLET BY MOUTH EVERY DAY NEEDED 06/02/2014 07/29/2014 Inactive (Response to an electronic controlled substance refill request - RxReferenceNumber: [id number]) nystatin 100,000 unit/gram topical powder RxNorm: 431796 APPLY TO AFFECTED AREA(S) TWO TIMES A DAY 05/01/2014 06/14/2014 Inactive hydrochlorothiazide 25 mg tablet RxNorm: 070061 TAKE ONE TABLET BY MOUTH EVERY DAY MUST CALL MD FOR APPOINTMENT 04/24/2014 10/20/2014 Inactive alprazolam 0.25 mg tablet RxNorm: 335931 Tablet(s) TAKE ONE TABLET BY MOUTH EVERY DAY NEEDED 04/16/2014 06/02/2014 Inactive (Response to an electronic controlled substance refill request - RxReferenceNumber: [id number]) alprazolam 0.25 mg tablet RxNorm: 502273 TAKE ONE TABLET BY MOUTH EVERY DAY NEEDED 04/16/2014 05/15/2014 Inactive (Response to an electronic controlled substance refill request - RxReferenceNumber: [id number]) alprazolam 0.25 mg tablet RxNorm: 945502 TAKE ONE TABLET BY MOUTH EVERY DAY NEEDED 04/16/2014 05/15/2014 Inactive (Response to an electronic controlled substance refill request - RxReferenceNumber: [id number]) alprazolam 0.25 mg tablet RxNorm: 966007 TAKE ONE TABLET BY MOUTH EVERY DAY NEEDED 04/14/2014 04/16/2014 Inactive (Response to an electronic controlled substance refill request - RxReferenceNumber: [id number]) Lipitor 10 mg tablet RxNorm: 961740 TAKE ONE TABLET BY MOUTH EVERY DAY 04/14/2014 09/10/2014 Inactive alprazolam 0.25 mg tablet RxNorm: 741017 TAKE ONE TABLET BY MOUTH EVERY DAY NEEDED 04/14/2014 04/14/2014 Inactive (Response to an electronic controlled substance refill request - RxReferenceNumber: [id number]) alprazolam 0.25 mg tablet RxNorm: 715672 TAKE ONE TABLET BY MOUTH EVERY DAY NEEDED 04/14/2014 04/15/2014 Inactive (Response to an electronic controlled substance refill request - RxReferenceNumber: [id number]) alprazolam 0.25 mg tablet RxNorm: 939907 TAKE ONE TABLET BY MOUTH EVERY DAY NEEDED 04/14/2014 04/14/2014 Inactive (Response to an electronic controlled substance refill request - RxReferenceNumber: [id number]) nystatin 100,000 unit/gram topical powder RxNorm: 764813 1 Application TOP BID 04/03/2014 07/01/2014 Inactive [SAVINGS FOR UNINSURED PATIENTS -- BIN:437437, PCN: ASPROD1, Group: [id number], ID# [id number], Process claim through [employer], for questions: . THIS IS NOT INSURANCE.] Keflex 500 mg capsule RxNorm: 545838 1 Capsule(s) PO QID 04/03/2014 04/09/2014 Inactive [SAVINGS FOR UNINSURED PATIENTS -- BIN:898391, PCN: ASPROD1, Group: [id number], ID# [id number], Process claim through [employer], for questions: . THIS IS NOT INSURANCE.] Synthroid 100 mcg tablet RxNorm: 629964 1 Tablet(s) PO daily TAKE ONE TABLET BY MOUTH EVERY DAY 04/01/2014 01/05/2015 Inactive [SAVINGS FOR UNINSURED PATIENTS -- BIN:718230, PCN: ASPROD1, Group: [id number], ID# [id number], Process claim through [employer], for questions: . THIS IS NOT INSURANCE.] Duragesic 50 mcg/hr transdermal patch RxNorm: 614447 1 TD q72 hours 03/24/2014 06/04/2014 Inactive [SAVINGS FOR UNINSURED PATIENTS -- BIN:694649, PCN: ASPROD1, Group: [id number], ID# [id number], Process claim through [employer], for questions: . THIS IS NOT INSURANCE.] trazodone 50 mg tablet RxNorm: 670346 TAKE 1 AND 1/2 TABLET AT BEDTIME FOR 2 WEEKS, MAY INCREASE TO 2 TABLETS IF NECESSARY AFTER THAT 03/18/2014 09/13/2014 Inactive nystatin 100,000 unit/gram topical powder RxNorm: 798421 1 Application TOP BID 03/07/2014 03/16/2014 Inactive [SAVINGS FOR UNINSURED PATIENTS -- BIN:669512, PCN: ASPROD1, Group: [id number], ID# [id number], Process claim through [employer], for questions: . THIS IS NOT INSURANCE.] permethrin 5 % topical cream RxNorm: 302809 1 Application TOP daily 03/07/2014 11/23/2015 Inactive apply head to toe-leave on overnight and wash off in the a.m. May repeat x 1 if needed Diflucan 150 mg tablet RxNorm: 133269 1 Tablet(s) PO daily 03/07/2014 03/09/2014 Inactive [SAVINGS FOR UNINSURED PATIENTS -- BIN:708499, PCN: ASPLEYDA1, Group: [id number], ID# [id number], Process claim through [employer], for questions: . THIS IS NOT INSURANCE.] hydrochlorothiazide 25 mg tablet RxNorm: 437950 TAKE ONE TABLET BY MOUTH EVERY DAY MUST CALL MD FOR APPOINTMENT 03/06/2014 04/23/2014 Inactive Zithromax Z-Sergio 250 mg tablet RxNorm: 633498 Tablet(s) PO as directed 03/04/2014 11/23/2015 Inactive [SAVINGS FOR UNINSURED PATIENTS -- BIN:758792, PCN: ASPROD1, Group: [id number], ID# [id number], Process claim through [employer], for questions: . THIS IS NOT INSURANCE.] Flonase 50 mcg/actuation nasal spray,suspension RxNorm: 767751 1 [place] NASAL daily 03/04/2014 07/01/2014 Inactive [SAVINGS FOR UNINSURED PATIENTS -- BIN:617710, PCN: ASPROD1, Group: [id number], ID# [id number], Process claim through [employer], for questions: . THIS IS NOT INSURANCE.] alprazolam 0.25 mg tablet RxNorm: 279709 1 Tablet(s) PO PRN TAKE ONE TABLET BY MOUTH EVERY DAY NEEDED 02/25/2014 04/14/2014 Inactive (Appended: Controlled substance eRx refill - RxReferenceNumber: [id number]) alprazolam 0.25 mg tablet RxNorm: 953457 TAKE ONE TABLET BY MOUTH EVERY DAY NEEDED 02/21/2014 03/22/2014 Inactive (Response to an electronic controlled substance refill request - RxReferenceNumber: [id number]) alprazolam 0.25 mg tablet RxNorm: 000334 TAKE ONE TABLET BY MOUTH EVERY DAY NEEDED 02/21/2014 03/22/2014 Inactive (Response to an electronic controlled substance refill request - RxReferenceNumber: [id number]) alprazolam 0.25 mg tablet RxNorm: 947515 TAKE ONE TABLET BY MOUTH EVERY DAY NEEDED 02/18/2014 03/19/2014 Inactive (Response to an electronic controlled substance refill request - RxReferenceNumber: [id number]) Cymbalta 60 mg capsule,delayed release RxNorm: 545216 TAKE ONE CAPSULE BY MOUTH TWICE A DAY 02/18/2014 01/13/2015 Inactive Nexium 40 mg capsule,delayed release RxNorm: 801479 TAKE ONE CAPSULE BY MOUTH EVERY DAY 02/18/2014 01/13/2015 Inactive Bactrim DS 800 mg-160 mg tablet RxNorm: 289949 1 Tablet(s) PO BID 02/13/2014 02/19/2014 Inactive probiotic while one antibiotic Bactrim DS 800 mg-160 mg tablet RxNorm: 431076 1 Tablet(s) PO BID 02/13/2014 02/12/2014 Inactive hydrocodone 10 mg-acetaminophen 325 mg tablet RxNorm: 001004 Tablet(s) PO TAKE ONE TO TWO TABLETS BY MOUTH EVERY 6 HOURS NEEDED FOR PAIN 02/06/2014 03/18/2015 Inactive (Appended: Controlled substance eRx refill - RxReferenceNumber: [id number]) Abilify 2 mg tablet RxNorm: 787724 Tablet(s) PO TAKE ONE TABLET BY MOUTH EVERY NIGHT AT BEDTIME 02/03/2014 03/19/2015 Inactive Duragesic 50 mcg/hr transdermal patch RxNorm: 072937 1 TD q72 hours 01/14/2014 03/23/2014 Inactive alprazolam 0.25 mg tablet RxNorm: 049339 1 Tablet(s) PO QDAY PRN 01/14/2014 02/12/2014 Inactive alprazolam 0.25 mg tablet RxNorm: 850488 Tablet(s) PO TAKE ONE TABLET BY MOUTH EVERY DAY NEEDED 01/14/2014 02/24/2014 Inactive (Appended: Controlled substance eRx refill - RxReferenceNumber: [id number]) Lipitor 10 mg tablet RxNorm: 178645 Tablet(s) PO TAKE ONE TABLET BY MOUTH EVERY DAY 01/14/2014 04/13/2014 Inactive Synthroid 100 mcg tablet RxNorm: 072447 Tablet(s) PO TAKE ONE TABLET BY MOUTH EVERY DAY 2013 03/31/2014 Inactive Fioricet 50 mg-325 mg-40 mg tablet RxNorm: 713500 Tablet(s) PO TAKE ONE TABLET BY MOUTH EVERY 4 HOURS NEEDED FOR PAIN 11/27/2013 09/17/2014 Inactive Fioricet 50 mg-325 mg-40 mg tablet RxNorm: 596357 Tablet(s) PO TAKE ONE TABLET BY MOUTH EVERY 4 HOURS NEEDED FOR PAIN 11/25/2013 11/26/2013 Inactive Zithromax Z-Sergio 250 mg tablet RxNorm: 214719 Tablet(s) PO as directed 11/11/2013 01/13/2014 Inactive Bystolic 10 mg tablet RxNorm: 119494 Tablet(s) PO TAKE ONE TABLET BY MOUTH EVERY DAY 10/21/2013 09/28/2014 Inactive Abilify 2 mg tablet RxNorm: 220383 1 Tablet(s) PO QHS 09/25/2013 01/22/2014 Inactive Synthroid 100 mcg tablet RxNorm: 386793 Tablet(s) PO TAKE ONE TABLET BY MOUTH EVERY DAY 09/24/2013 12/25/2013 Inactive Abilify 2 mg tablet RxNorm: 836065 1 Tablet(s) PO QHS 09/24/2013 09/24/2013 Inactive Rocephin 500 mg solution for injection RxNorm: 099939 1ml Milliliter(s) Inj 09/24/2013 09/24/2013 Inactive Rocephin 500 mg solution for injection RxNorm: 929280 1 Milliliter(s) Inj 09/19/2013 09/19/2013 Inactive Bystolic 5 mg tablet RxNorm: 809380 1 1/2 Tablet(s) PO daily 09/17/2013 03/15/2014 Inactive 1 1/2 daily may have 90 day if cheaper Bystolic 5 mg tablet RxNorm: 492653 1 1/2 Tablet(s) PO daily 09/17/2013 09/16/2013 Inactive 1 1/2 daily Lipitor 10 mg tablet RxNorm: 676585 Tablet(s) PO TAKE ONE TABLET BY MOUTH EVERY DAY 09/12/2013 01/13/2014 Inactive hydrocodone 10 mg-acetaminophen 325 mg tablet RxNorm: 831719 Tablet(s) PO TAKE ONE TO TWO TABLETS BY MOUTH EVERY 6 HOURS NEEDED FOR PAIN 09/09/2013 10/29/2017 Inactive (Appended: Controlled substance eRx refill - RxReferenceNumber: [id number]) hydrocodone 10 mg-acetaminophen 325 mg tablet RxNorm: 602780 1 Tablet(s) PO Q6 PRN 09/09/2013 02/06/2014 Inactive hydrocodone 10 mg-acetaminophen 325 mg tablet RxNorm: 986549 Tablet(s) PO TAKE ONE TO TWO TABLETS BY MOUTH EVERY 6 HOURS NEEDED FOR PAIN 09/06/2013 10/29/2017 Inactive (Appended: Controlled substance eRx refill - RxReferenceNumber: [id number]) Norvasc 10 mg tablet RxNorm: 628403 Tablet(s) PO TAKE ONE TABLET BY MOUTH EVERY DAY 09/05/2013 10/25/2015 Inactive trazodone 50 mg tablet RxNorm: 536101 1 1/2 Tablet(s) PO QHS 09/03/2013 03/17/2014 Inactive 75q hs x 2 week may increase to 100mg if nec after that nystatin 100,000 unit/mL oral suspension RxNorm: 085053 6 Milliliter(s) PO QID 08/06/2013 08/15/2013 Inactive Flonase 50 mcg/actuation nasal spray,suspension RxNorm: 879709 2 [place] NASAL daily 08/06/2013 03/03/2014 Inactive nystatin 100,000 unit/mL oral suspension RxNorm: 506694 6 Unit(s) PO QID 08/05/2013 08/05/2013 Inactive Phenergan with Codeine Syrup RxNorm: 5 Milliliter(s) PO Q4 PRN 08/05/2013 12/02/2013 Inactive 8 ounces alprazolam 0.25 mg tablet RxNorm: 692834 1 Tablet(s) PO QDAY PRN 07/29/2013 01/14/2014 Inactive Diflucan 150 mg tablet RxNorm: 542372 1 Tablet(s) PO daily 07/24/2013 07/26/2013 Inactive hydrochlorothiazide 25 mg tablet RxNorm: 330036 Tablet(s) PO TAKE ONE TABLET BY MOUTH EVERY DAY MUST CALL MD FOR APPOINTMENT 07/19/2013 03/05/2014 Inactive Phenergan with Codeine Syrup RxNorm: 10 Milliliter(s) PO Q4 PRN 07/10/2013 08/04/2013 Inactive 8 ounces Rocephin 500 mg solution for injection RxNorm: 1705089 1 Inj 07/10/2013 07/10/2013 Inactive cefdinir 300 mg capsule RxNorm: 342991 1 Capsule(s) PO BID 07/10/2013 07/16/2013 Inactive prednisone 10 mg tablet RxNorm: 810253 3 Tablet(s) PO daily 07/10/2013 07/14/2013 Inactive Carafate 100 mg/mL oral suspension RxNorm: 122390 10 Milliliter(s) PO Q6 PRN pt to take carafate 10mL every 6 hours as needed. 07/10/2013 08/05/2014 Inactive Kenalog 40 mg/mL suspension for injection RxNorm: 4179885 1 Milliliter(s) Inj 07/10/2013 07/10/2013 Inactive trazodone 50 mg tablet RxNorm: 746193 1 Tablet(s) PO QHS 07/10/2013 09/02/2013 Inactive sulfamethoxazole 800 mg-trimethoprim 160 mg tablet RxNorm: 799332 1 Tablet(s) PO BID 06/03/2013 06/12/2013 Inactive Synthroid 125 mcg tablet RxNorm: 142583 1 Tablet(s) PO daily 05/07/2013 09/23/2013 Inactive Bystolic 10 mg tablet RxNorm: 525384 1.5 Tablet(s) PO daily 05/07/2013 09/03/2013 Inactive Voltaren 1 % Topical Gel RxNorm: 949211 4 Gram(s) TOP QID apply 4 grams to knees, 2 grams to hands and ankles four times daily. 05/07/2013 09/03/2013 Inactive hydrocodone 10 mg-acetaminophen 325 mg tablet RxNorm: 074243 1 Tablet(s) PO Q6 PRN 04/23/2013 09/09/2013 Inactive Norvasc 10 mg tablet RxNorm: 565525 Tablet(s) PO TAKE ONE TABLET BY MOUTH EVERY DAY 04/23/2013 09/04/2013 Inactive alprazolam 0.25 mg tablet RxNorm: 273248 1 Tablet(s) PO QDAY PRN 03/25/2013 07/22/2013 Inactive Bystolic 10 mg tablet RxNorm: 251050 1 Tablet(s) PO daily TAKE ONE TABLET BY MOUTH EVERY DAY 03/25/2013 05/06/2013 Inactive zolpidem 10 mg tablet RxNorm: 545109 1 Tablet(s) PO HS PRN 03/25/2013 07/09/2013 Inactive gentamicin 0.3 % Eye Drops RxNorm: 212602 3 Drop(s) OPH QID three gtts to each eye QID x 7 days 03/11/2013 03/10/2013 Inactive gentamicin 0.3 % eye drops RxNorm: 904379 3 Drop(s) OPH QID three gtts to each eye QID x 7 days 03/11/2013 03/17/2013 Inactive Nexium 40 mg capsule,delayed release RxNorm: 855226 Capsule(s) PO TAKE ONE CAPSULE BY MOUTH EVERY DAY 02/15/2013 02/17/2014 Inactive Cymbalta 60 mg capsule,delayed release RxNorm: 729338 Capsule(s) PO TAKE ONE CAPSULE BY MOUTH TWICE A DAY 02/15/2013 02/17/2014 Inactive hydrocodone 10 mg-acetaminophen 325 mg tablet RxNorm: 5563078 1 Tablet(s) PO Q6 PRN 01/22/2013 04/22/2013 Inactive Lipitor 10 mg tablet RxNorm: 369002 Tablet(s) PO TAKE ONE TABLET BY MOUTH EVERY DAY 01/07/2013 09/11/2013 Inactive Cymbalta 60 mg capsule,delayed release RxNorm: 516613 Capsule(s) PO TAKE ONE CAPSULE BY MOUTH TWICE A DAY 01/02/2013 02/14/2013 Inactive Synthroid 100 mcg tablet RxNorm: 148177 1 Tablet(s) PO 12/03/2012 05/06/2013 Inactive Enablex 7.5 mg tablet,extended release RxNorm: 433373 1 Tablet(s) PO daily 11/28/2012 11/27/2012 Inactive Enablex 7.5 mg tablet,extended release RxNorm: 778805 1 Tablet(s) PO daily 11/28/2012 11/28/2012 Inactive scopolamine 1.5 mg 72 hr Transderm Patch RxNorm: 662408 1 Milligram(s) TD q72 hours 11/26/2012 05/06/2013 Inactive hydrochlorothiazide 25 mg tablet RxNorm: 478720 Tablet(s) PO TAKE ONE TABLET BY MOUTH EVERY DAY MUST CALL FOR APPOINTMENT 11/24/2012 07/18/2013 Inactive Cymbalta 60 mg capsule,delayed release RxNorm: 597415 Capsule(s) PO TAKE ONE CAPSULE BY MOUTH TWICE A DAY 10/26/2012 01/01/2013 Inactive Bystolic 10 mg tablet RxNorm: 880287 Tablet(s) PO TAKE ONE TABLET BY MOUTH EVERY DAY 10/12/2012 03/25/2013 Inactive zolpidem 10 mg tablet RxNorm: 845980 1 Tablet(s) PO HS PRN 10/02/2012 01/29/2013 Inactive alprazolam 0.25 mg tablet RxNorm: 775361 1 Tablet(s) PO QDAY PRN 10/02/2012 01/29/2013 Inactive Kenalog 40 mg/mL Susp for Injection RxNorm: 6278970 1 Milliliter(s) Inj 09/24/2012 09/24/2012 Inactive Diflucan 150 mg tablet RxNorm: 374529 1 Tablet(s) PO daily 09/24/2012 09/30/2012 Inactive acyclovir 400 mg tablet RxNorm: 123317 1 Tablet(s) PO QID 09/24/2012 10/08/2012 Inactive Cipro 500 mg tablet RxNorm: 415060 1 Tablet(s) PO BID 09/24/2012 09/30/2012 Inactive Tamiflu 75 mg capsule RxNorm: 561158 1 Capsule(s) PO BID 09/17/2012 09/16/2012 Inactive Tamiflu 75 mg capsule RxNorm: 686461 1 Capsule(s) PO BID 09/17/2012 09/16/2012 Inactive Tamiflu 75 mg capsule RxNorm: 523050 1 Capsule(s) PO BID please disregard order for #14 09/17/2012 09/21/2012 Inactive fluconazole 150 mg tablet RxNorm: 671348 1 Tablet(s) PO daily 09/10/2012 09/13/2012 Inactive ketoconazole 2 % Topical Cream RxNorm: 195834 Application TOP BID apply to affected area BID until gone 08/31/2012 11/01/2017 Inactive Norvasc 10 mg tablet RxNorm: 252314 Tablet(s) PO TAKE ONE TABLET BY MOUTH EVERY DAY 08/29/2012 04/22/2013 Inactive Cipro 500 mg tablet RxNorm: 961169 1 Tablet(s) PO BID 08/17/2012 08/26/2012 Inactive Flagyl 500 mg tablet RxNorm: 062820 1 Tablet(s) PO TID 08/17/2012 08/23/2012 Inactive Cipro 500 mg tablet RxNorm: 348772 1 Tablet(s) PO BID 08/17/2012 08/16/2012 Inactive zolpidem 10 mg tablet RxNorm: 000997 1 Tablet(s) PO HS PRN 08/17/2012 09/15/2012 Inactive Flagyl 500 mg tablet RxNorm: 618569 1 Tablet(s) PO TID 08/17/2012 08/16/2012 Inactive alprazolam 0.25 mg tablet RxNorm: 821884 1 Tablet(s) PO QDAY PRN 08/17/2012 09/15/2012 Inactive [place] Allergy 180 mg tablet RxNorm: 002171 1 Tablet(s) PO daily 08/08/2012 02/03/2013 Inactive hydrochlorothiazide 25 mg tablet RxNorm: 459222 1/2 Tablet(s) PO daily 08/08/2012 11/05/2012 Inactive needs appt Carafate 1 gram tablet RxNorm: 015013 1 Tablet(s) PO QID mix with 10 cc water and dissolve into slurry 08/08/2012 08/21/2012 Inactive hydrocodone 10 mg-acetaminophen 325 mg tablet RxNorm: 9609835 1 Tablet(s) PO Q6 PRN 08/08/2012 01/21/2013 Inactive Synthroid 100 mcg tablet RxNorm: 866702 1 Tablet(s) PO 08/08/2012 12/02/2012 Inactive Cymbalta 60 mg capsule,delayed release RxNorm: 397235 Capsule(s) PO 07/23/2012 10/25/2012 Inactive TAKE ONE CAPSULE BY MOUTH TWICE A DAY Nexium 40 mg capsule,delayed release RxNorm: 413467 Capsule(s) PO 06/20/2012 02/14/2013 Inactive TAKE ONE CAPSULE BY MOUTH EVERY DAY Lipitor 10 mg tablet RxNorm: 365002 Tablet(s) PO 06/20/2012 01/06/2013 Inactive TAKE ONE TABLET BY MOUTH EVERY DAY hydrochlorothiazide 25 mg tablet RxNorm: 629896 1 Tablet(s) PO daily 06/19/2012 08/07/2012 Inactive needs appt alprazolam 0.25 mg tablet RxNorm: 386137 1 Tablet(s) PO QDAY PRN 06/05/2012 07/04/2012 Inactive zolpidem 10 mg tablet RxNorm: 725722 1 Tablet(s) PO HS PRN 06/05/2012 07/04/2012 Inactive zolpidem 10 mg tablet RxNorm: 522788 1 Tablet(s) PO HS PRN 04/16/2012 05/15/2012 Inactive alprazolam 0.25 mg tablet RxNorm: 781951 1 Tablet(s) PO QDAY PRN 04/16/2012 05/15/2012 Inactive Cymbalta 60 mg capsule,delayed release RxNorm: 344347 1 Capsule(s) PO BID 03/22/2012 07/19/2012 Inactive Fioricet 50 mg-325 mg-40 mg tablet RxNorm: 708801 1 Tablet(s) PO Q4 PRN 03/22/2012 11/24/2013 Inactive Bystolic 10 mg tablet RxNorm: 971409 Tablet(s) PO 03/22/2012 10/11/2012 Inactive TAKE ONE TABLET BY MOUTH EVERY DAY potassium chloride ER 10 mEq Tab RxNorm: 806789 1 Tablet(s) PO daily 02/24/2012 03/01/2012 Inactive Lasix 20 mg Tab RxNorm: 560017 1 Tablet(s) PO daily 02/22/2012 02/21/2012 Inactive KCL 10 meq RxNorm: 1 PO daily 02/22/2012 02/21/2012 Inactive potassium chloride ER 10 mEq Tab RxNorm: 222732 1 Tablet(s) PO daily 02/22/2012 02/21/2012 Inactive Lasix 20 mg Tab RxNorm: 329060 1 Tablet(s) PO daily 02/22/2012 02/28/2012 Inactive KCL 10 meq RxNorm: 1 PO daily 02/22/2012 02/22/2012 Inactive potassium chloride ER 10 mEq Tab RxNorm: 743536 1 Tablet(s) PO daily 02/22/2012 02/23/2012 Inactive Rocephin 500 mg Solution for Injection RxNorm: 3881113 Inj 02/15/2012 02/15/2012 Inactive Nexium 40 mg capsule,delayed release RxNorm: 094411 1 Capsule(s) PO daily 02/15/2012 No Stop Date Active Bystolic 10 mg Tab RxNorm: 475611 1 Tablet(s) PO daily 02/15/2012 08/12/2012 Inactive alprazolam 0.25 mg tablet RxNorm: 593138 1 Tablet(s) PO QDAY PRN 01/31/2012 02/29/2012 Inactive zolpidem 10 mg tablet RxNorm: 709757 1 Tablet(s) PO HS PRN 01/31/2012 02/29/2012 Inactive alprazolam 0.25 mg Tab RxNorm: 440473 1 Tablet(s) PO QDAY PRN 12/16/2011 01/14/2012 Inactive zolpidem 10 mg Tab RxNorm: 411017 1 Tablet(s) PO HS PRN 12/16/2011 01/14/2012 Inactive Norvasc 10 mg tablet RxNorm: 281134 1 Tablet(s) PO daily 12/02/2011 02/21/2012 Inactive Lipitor 10 mg tablet RxNorm: 784656 1 Tablet(s) PO daily 11/16/2011 05/13/2012 Inactive zolpidem 10 mg Tab RxNorm: 162691 1 Tablet(s) PO HS PRN 10/26/2011 12/15/2011 Inactive alprazolam 0.25 mg Tab RxNorm: 381167 1 Tablet(s) PO QDAY PRN 10/26/2011 12/15/2011 Inactive hydrochlorothiazide 25 mg tablet RxNorm: 213994 1 Tablet(s) PO daily 09/05/2011 03/02/2012 Inactive Synthroid 75 mcg tablet RxNorm: 821084 1 Tablet(s) PO daily 08/01/2011 02/26/2012 Inactive Abilify 2 mg Tab RxNorm: 354182 1 Tablet(s) PO QHS 08/01/2011 09/10/2012 Inactive dicyclomine 10 mg Cap RxNorm: 857841 1 Capsule(s) PO TID 08/01/2011 10/29/2011 Inactive alprazolam 0.25 mg Tab RxNorm: 957150 1 Tablet(s) PO QDAY PRN 07/26/2011 10/25/2011 Inactive Fioricet 50 mg-325 mg-40 mg tablet RxNorm: 464927 1 Tablet(s) PO Q4 PRN 07/14/2011 03/21/2012 Inactive Rocephin 500 mg Solution for Injection RxNorm: 6539824 1 Milliliter(s) Inj 07/14/2011 08/01/2011 Inactive Nexium 40 mg Capsule, delayed release RxNorm: 461635 1 Capsule(s) PO daily 05/23/2011 10/06/2011 Inactive Bystolic 10 mg tablet RxNorm: 827931 1 Tablet(s) PO daily 05/23/2011 11/18/2011 Inactive Bystolic 10 mg Tab RxNorm: 421316 1 Tablet(s) PO daily 05/23/2011 05/22/2011 Inactive alprazolam 0.25 mg Tab RxNorm: 804661 1 Tablet(s) PO QDAY PRN 05/23/2011 07/25/2011 Inactive Influenza Virus Vaccine 0.5 mL RxNorm: IM 05/23/2011 05/23/2011 Inactive zolpidem 10 mg Tab RxNorm: 029467 1 Tablet(s) PO HS PRN 05/23/2011 10/25/2011 Inactive Rocephin 500 mg Solution for Injection RxNorm: 7615076 1 Milliliter(s) Inj 05/03/2011 07/14/2011 Inactive Kenalog 40 mg/mL Susp for Injection RxNorm: 3127082 1 Milliliter(s) Inj 05/03/2011 07/14/2011 Inactive Bactrim DS 800 mg-160 mg Tab RxNorm: 911258 1 Tablet(s) PO BID 05/03/2011 08/01/2011 Inactive Bystolic 10 mg tablet RxNorm: 935123 1 Tablet(s) PO daily No Start Date Active Flonase 50 mcg/actuation nasal spray,suspension RxNorm: 6179097 2 [place] NASAL daily No Start Date 08/05/2013 Inactive Levaquin 500 mg tablet RxNorm: 894116 Tablet(s) PO No Start Date 04/19/2017 Inactive Duragesic 50 mcg/hr transdermal patch RxNorm: 872890 1 TD q72 hours No Start Date 01/13/2014 Inactive Vesicare 5 mg tablet RxNorm: 814281 1 Tablet(s) PO daily No Start Date 01/06/2015 Inactive Celebrex 200 mg capsule RxNorm: 929442 1 Capsule(s) PO daily No Start Date 04/02/2014 Inactive zolpidem 10 mg Tab RxNorm: 675705 1 Tablet(s) PO HS PRN No Start Date 05/22/2011 Inactive Zyrtec 10 mg Tab RxNorm: 0615471 1 Tablet(s) PO daily No Start Date 08/08/2012 Inactive Flonase 50 mcg/actuation nasal spray,suspension RxNorm: 0931645 1 [place] NASAL daily No Start Date 11/07/2017 Inactive 1 spray to each nostril daily Nexium 40 mg Cap RxNorm: 971474 1 Capsule(s) PO daily No Start Date 05/22/2011 Inactive ketoconazole 2 % Topical Cream RxNorm: 317415 Application TOP BID apply to affected area BID until gone No Start Date 08/30/2012 Inactive aspirin 81 mg tablet RxNorm: 008385 1 Tablet(s) PO daily No Start Date 11/13/2017 Inactive Cymbalta 60 mg capsule,delayed release RxNorm: 802644 1 Capsule(s) PO BID No Start Date 03/21/2012 Inactive alprazolam 0.25 mg Tab RxNorm: 275546 1 Tablet(s) PO QDAY PRN No Start Date 05/22/2011 Inactive baclofen 10 mg tablet RxNorm: 756596 1 Tablet(s) PO TID as needed muscle spasms No Start Date 11/14/2017 Inactive Toprol XL 100 mg 24 hr Tab RxNorm: 849979 1 Tablet(s) PO BID No Start Date 04/25/2011 Inactive Xanax 0.25 mg tablet RxNorm: 893641 1 Tablet(s) PO daily as needed No Start Date 12/27/2015 Inactive Bystolic 10 mg Tab RxNorm: 004001 1 Tablet(s) PO daily No Start Date 05/22/2011 Inactive Fioricet 50 mg-325 mg-40 mg Tab RxNorm: 077863 1 Tablet(s) PO Q4 PRN No Start Date 07/13/2011 Inactive albuterol sulfate HFA 90 mcg/Actuation Aerosol Inhaler RxNorm: 7422453 1 INH Q4 PRN No Start Date 01/06/2015 Inactive Imitrex 50 mg tablet RxNorm: 057590 1 Tablet(s) PO Q8 as needed may repeat x1 dose in 1 hour of inital dose. No Start Date 02/24/2016 Inactive dc fioricet Tessalon 200 mg Cap RxNorm: 623652 1 Capsule(s) PO Q4 PRN No Start Date 02/14/2012 Inactive Zithromax Z-Sergio 250 mg tablet RxNorm: 298992 Tablet(s) PO No Start Date 11/10/2013 Inactive hydrochlorothiazide 25 mg Tab RxNorm: 539745 1 Tablet(s) PO daily No Start Date 09/04/2011 Inactive Fish Oil 1,000 mg Cap RxNorm: 1 Capsule(s) PO TID No Start Date 11/08/2017 Inactive Deplin 15 mg Tab RxNorm: 1 Tablet(s) PO daily No Start Date 08/01/2011 Inactive Brilinta 90 mg tablet RxNorm: 0479129 1 Tablet(s) PO BID No Start Date 11/23/2015 Inactive Synthroid 75 mcg Tab RxNorm: 057700 1 Tablet(s) PO daily No Start Date 07/31/2011 Inactive ciprofloxacin 0.3 % eye drops RxNorm: 512930 2 Drop(s) ophthalmic (eye) Q2H while awake x 2 days, then Q4H x 5 days No Start Date 11/22/2017 Inactive scopolamine 1.5 mg 72 hr Transderm Patch RxNorm: 576017 1 Milligram(s) TD q72 hours No Start Date 11/25/2012 Inactive hydrocodone-acetaminophen 10 mg-325 mg tablet RxNorm: 7660546 1 Tablet(s) PO Q6 PRN No Start Date 08/07/2012 Inactive Phenergan with Codeine Syrup RxNorm: 5-10 Milliliter(s) PO Q6 PRN No Start Date 02/14/2012 Inactive Norvasc 10 mg Tab RxNorm: 097827 1 Tablet(s) PO daily No Start Date 12/01/2011 Inactive Zithromax Z-Sergio 250 mg Tab RxNorm: 770650 Tablet(s) PO No Start Date 08/01/2011 Inactive Medication Administered Medication Codes Instructions Start Date Status ceftriaxone 500 mg solution for injection RxNorm: 9977609 05/28/2018 No longer Active Kenalog 40 mg/mL suspension for injection RxNorm: 9373394 Milliliter 05/28/2018 No longer Active ceftriaxone 500 mg solution for injection RxNorm: 6379858 500Milligram 01/19/2018 No longer Active Kenalog 40 mg/mL suspension for injection RxNorm: 1853281 1Milliliter 01/19/2018 No longer Active Kenalog 40 mg/mL suspension for injection RxNorm: 6111732 1Milliliter 06/27/2017 No longer Active Kenalog 40 mg/mL suspension for injection RxNorm: 4676407 Milliliter 04/20/2017 No longer Active Kenalog 40 mg/mL suspension for injection RxNorm: 2056804 1Milliliter 03/14/2017 No longer Active ceftriaxone 500 mg solution for injection RxNorm: 0427690 1Milliliter 11/28/2016 No longer Active Kenalog 40 mg/mL suspension for injection RxNorm: 5671393 Milliliter 11/07/2016 No longer Active ceftriaxone 500 mg solution for injection RxNorm: 8709066 11/07/2016 No longer Active ceftriaxone 500 mg solution for injection RxNorm: 1828631 12/07/2015 No longer Active Kenalog 40 mg/mL suspension for injection RxNorm: 3618341 1Milliliter 11/24/2015 No longer Active ceftriaxone 500 mg solution for injection RxNorm: 0307837 Milliliter 11/24/2015 No longer Active promethazine 25 mg/mL injection solution RxNorm: 409941 Milliliter 08/27/2015 No longer Active ketorolac 60 mg/2 mL intramuscular solution RxNorm: 962597 Milliliter 08/27/2015 No longer Active Kenalog 40 mg/mL suspension for injection RxNorm: 8941810 Milliliter 08/10/2015 No longer Active ceftriaxone 500 mg solution for injection RxNorm: 0589405 08/10/2015 No longer Active ceftriaxone 500 mg solution for injection RxNorm: 5912396 1Milliliter 07/28/2015 No longer Active Kenalog 40 mg/mL suspension for injection RxNorm: 6324243 Milliliter 03/19/2015 No longer Active Kenalog 40 mg/mL suspension for injection RxNorm: 0095391 Milliliter 06/23/2014 No longer Active ceftriaxone 500 mg solution for injection RxNorm: 802600 06/23/2014 No longer Active Rocephin 500 mg solution for injection RxNorm: 340004 1mlMilliliter 09/24/2013 No longer Active Rocephin 500 mg solution for injection RxNorm: 851809 1Milliliter 09/19/2013 No longer Active Rocephin 500 mg solution for injection RxNorm: 1008091 1 07/10/2013 No longer Active Kenalog 40 mg/mL suspension for injection RxNorm: 2007425 1Milliliter 07/10/2013 No longer Active Kenalog 40 mg/mL Susp for Injection RxNorm: 0519213 1Milliliter 09/24/2012 No longer Active Rocephin 500 mg Solution for Injection RxNorm: 2526081 02/15/2012 No longer Active Influenza Virus Vaccine [...] Item Item Code Result Date Free T4 [id number] FREE T4 0.71 ng/dL 10/31/2018 Tsh Ord6 TSH (3rd IS) 7.87 uIU/mL 10/31/2018 Lipid Ord30 CHOL 170 mg/dL 10/31/2018 Lipid Ord30 HDL 53.0 mg/dl 10/31/2018 Lipid Ord30 TRIG 85 mg/dL 10/31/2018 Lipid Ord30 LDL 100 mg/dL 10/31/2018 Lipid Ord30 C/HDL 3.2 Ratio 10/31/2018 Comp Metabolic Pgx521 NA 142 mEq/L 10/31/2018 Comp Metabolic Sky631 K 4.0 mEq/L 10/31/2018 Comp Metabolic Bka171 CL 106 mEq/L 10/31/2018 Comp Metabolic Moq653 CO2 27.0 mEq/L 10/31/2018 Comp Metabolic Jwe917 ANION GAP 13 10/31/2018 Comp Metabolic Yow800 GLUCOSE 114 mg/dL 10/31/2018 Comp Metabolic Egu671 Creat 0.7 mg/dL 10/31/2018 Comp Metabolic Ocs848 eGFR 90 ml/min/1.73m2 10/31/2018 Comp Metabolic Cou992 BUN 21 mg/dL 10/31/2018 Comp Metabolic Wad760 B/C Ratio 30.9 Ratio 10/31/2018 Comp Metabolic Zha609 CALCIUM 9.7 mg/dL 10/31/2018 Comp Metabolic Glf503 ALK PHOS 63 U/L 10/31/2018 Comp Metabolic Tzw026 AST(SGOT) 24 U/L 10/31/2018 Comp Metabolic Qwn245 ALT(SGPT) 21 U/L 10/31/2018 Comp Metabolic Jzf462 BILI T 0.6 mg/dL 10/31/2018 Comp Metabolic Yht924 ALBUMIN 4.1 g/dL 10/31/2018 Comp Metabolic Ngg789 TPRO 6.6 g/dL 10/31/2018 Comp Metabolic Oki096 GLOB 2.5 g/dL 10/31/2018 Comp Metabolic Bmg520 A/G Ratio 1.7 Ratio 10/31/2018 Comp Metabolic Lkp070 Osmo 287 mOsmo 10/31/2018 Cbc With Differential [...] 30.9 pg 10/31/2018 Cbc With Differential Ord2 [place]% 8.0 % 10/31/2018 Cbc With Differential Ord2 [...] 1.88 K/ul 10/31/2018 Cbc With Differential Ord2 [place] ABS# 0.6 K/ul 10/31/2018 Cbc With Differential Ord2 Eos ABS# 0.5 K/ul 10/31/2018 Cbc With Differential Ord2 Baso ABS# 0.1 K/ul 10/31/2018 Comp Metabolic Oct703 NA 141 mEq/L 09/12/2017 Comp Metabolic Vdj979 K 4.1 mEq/L 09/12/2017 Comp Metabolic Njs149 CL 105 mEq/L 09/12/2017 Comp Metabolic Zcl755 CO2 30.0 mEq/L 09/12/2017 Comp Metabolic Jzw645 ANION GAP 10 09/12/2017 Comp Metabolic Bbw199 GLUCOSE 97 mg/dL 09/12/2017 Comp Metabolic Zlg619 Creat 0.7 mg/dL 09/12/2017 Comp Metabolic Nsr521 eGFR 91 ml/min/1.73m2 09/12/2017 Comp Metabolic Chl676 BUN 18 mg/dL 09/12/2017 Comp Metabolic Udz920 B/C Ratio 26.5 Ratio 09/12/2017 Comp Metabolic Kat404 CALCIUM 9.7 mg/dL 09/12/2017 Comp Metabolic Ztf457 ALK PHOS 60 U/L 09/12/2017 Comp Metabolic Flo738 AST(SGOT) 22 U/L 09/12/2017 Comp Metabolic Kej023 ALT(SGPT) 23 U/L 09/12/2017 Comp Metabolic Xlb729 BILI T 0.4 mg/dL 09/12/2017 Comp Metabolic Dwm143 ALBUMIN 3.8 g/dL 09/12/2017 Comp Metabolic Yqi058 TPRO 6.4 g/dL 09/12/2017 Comp Metabolic Smt629 GLOB 2.6 g/dL 09/12/2017 Comp Metabolic Eiw932 A/G Ratio 1.5 Ratio 09/12/2017 Comp Metabolic Qgh982 Osmo 283 mOsmo 09/12/2017 Cbc With Differential [...] 30.7 pg 09/12/2017 Cbc With Differential Ord2 [place]% 7.2 % 09/12/2017 Cbc With Differential Ord2 [...] 2.46 K/ul 09/12/2017 Cbc With Differential Ord2 [place] ABS# 0.6 K/ul 09/12/2017 Cbc With Differential [...] 31.4 pg 11/07/2016 Cbc With Differential Ord2 [place]% 6.1 % 11/07/2016 Cbc With Differential Ord2 [...] 2.48 K/ul 11/07/2016 Cbc With Differential Ord2 [place] ABS# 0.6 K/ul 11/07/2016 Cbc With Differential Ord2 Eos ABS# 0.3 K/ul 11/07/2016 Cbc With Differential Ord2 Baso ABS# 0.1 K/ul 11/07/2016 Comp Metabolic Ggw634 NA 139 mEq/L 11/07/2016 Comp Metabolic Leh497 K 3.8 mEq/L 11/07/2016 Comp Metabolic Xce639 CL 106 mEq/L 11/07/2016 Comp Metabolic Nad275 CO2 25.0 mEq/L 11/07/2016 Comp Metabolic Wzy522 ANION GAP 12 11/07/2016 Comp Metabolic Nmi811 GLUCOSE 98 mg/dL 11/07/2016 Comp Metabolic Vyl333 Creat 0.8 mg/dL 11/07/2016 Comp Metabolic Ang601 eGFR 71 ml/min/1.73m2 11/07/2016 Comp Metabolic Ofi027 BUN 36 mg/dL 11/07/2016 Comp Metabolic Jhr114 B/C Ratio 42.9 Ratio 11/07/2016 Comp Metabolic Cmh645 CALCIUM 9.9 mg/dL 11/07/2016 Comp Metabolic Jhg397 ALK PHOS 57 U/L 11/07/2016 Comp Metabolic Pfc359 AST(SGOT) 24 U/L 11/07/2016 Comp Metabolic Mkz331 ALT(SGPT) 28 U/L 11/07/2016 Comp Metabolic Bfk134 BILI T 0.4 mg/dL 11/07/2016 Comp Metabolic Vhh152 ALBUMIN 4.2 g/dL 11/07/2016 Comp Metabolic Njn157 TPRO 7.0 g/dL 11/07/2016 Comp Metabolic Mxr278 GLOB 2.8 g/dL 11/07/2016 Comp Metabolic Ugg424 A/G Ratio 1.5 Ratio 11/07/2016 Comp Metabolic Emh123 Osmo 286 mOsmo 11/07/2016 Free T4 Yzp621 FREE T4 0.75 ng/dL 11/07/2016 Tsh Ord6 hTSH II 3.46 uIU/mL 11/07/2016 Comp Metabolic Oxr177 NA 138 mEq/L 05/10/2016 Comp Metabolic Qud551 K 3.8 mEq/L 05/10/2016 Comp Metabolic Vwl710 CL 102 mEq/L 05/10/2016 Comp Metabolic Hgf029 CO2 29.0 mEq/L 05/10/2016 Comp Metabolic Kbh320 ANION GAP 11 05/10/2016 Comp Metabolic Yxo161 GLUCOSE 107 mg/dL 05/10/2016 Comp Metabolic Ucb450 Creat 0.7 mg/dL 05/10/2016 Comp Metabolic Ghc575 eGFR 93 ml/min/1.73m2 05/10/2016 Comp Metabolic Dfy747 BUN 18 mg/dL 05/10/2016 Comp Metabolic Yga253 B/C Ratio 26.9 Ratio 05/10/2016 Comp Metabolic Emj862 CALCIUM 9.8 mg/dL 05/10/2016 Comp Metabolic Dde517 ALK PHOS 60 U/L 05/10/2016 Comp Metabolic Zjv401 AST(SGOT) 21 U/L 05/10/2016 Comp Metabolic Ymw035 ALT(SGPT) 23 U/L 05/10/2016 Comp Metabolic Lax183 BILI T 0.5 mg/dL 05/10/2016 Comp Metabolic Nzz290 ALBUMIN 4.1 g/dL 05/10/2016 Comp Metabolic Fet400 TPRO 6.7 g/dL 05/10/2016 Comp Metabolic Wwm681 GLOB 2.7 g/dL 05/10/2016 Comp Metabolic Rbt734 A/G Ratio 1.5 Ratio 05/10/2016 Comp Metabolic Qov893 Osmo 278 mOsmo 05/10/2016 Lipid Ord30 CHOL 169 mg/dL 05/10/2016 Lipid Ord30 HDL 50.0 mg/dl 05/10/2016 Lipid Ord30 TRIG 161 mg/dL 05/10/2016 Lipid Ord30 LDL 87 mg/dL 05/10/2016 Lipid Ord30 C/HDL 3.4 Ratio 05/10/2016 Comp Metabolic Qsn777 NA 137 mEq/L 06/12/2015 Comp Metabolic Cki662 K 3.8 mEq/L 06/12/2015 Comp Metabolic Mvs758 CL 104 mEq/L 06/12/2015 Comp Metabolic Lfz491 CO2 24.0 mEq/L 06/12/2015 Comp Metabolic Wwf775 ANION GAP 13 06/12/2015 Comp Metabolic Yjd825 GLUCOSE 92 mg/dL 06/12/2015 Comp Metabolic Abf395 Creat 0.7 mg/dL 06/12/2015 Comp Metabolic Kqz134 eGFR 87 ml/min/1.73m2 06/12/2015 Comp Metabolic Zib985 BUN 31 mg/dL 06/12/2015 Comp Metabolic Cxc378 B/C Ratio 43.7 Ratio 06/12/2015 Comp Metabolic Cet956 CALCIUM 10.0 mg/dL 06/12/2015 Comp Metabolic Noc766 ALK PHOS 58 U/L 06/12/2015 Comp Metabolic Dpe443 AST(SGOT) 32 U/L 06/12/2015 Comp Metabolic Abt721 ALT(SGPT) 33 U/L 06/12/2015 Comp Metabolic Vnc710 BILI T 0.5 mg/dL 06/12/2015 Comp Metabolic Rpb215 ALBUMIN 4.1 g/dL 06/12/2015 Comp Metabolic Ovx346 TPRO 6.6 g/dL 06/12/2015 Comp Metabolic Pfg120 GLOB 2.5 g/dL 06/12/2015 Comp Metabolic Hsz075 A/G Ratio 1.6 Ratio 06/12/2015 Comp Metabolic Mxo927 Osmo 280 mOsmo 06/12/2015 Cbc With Differential [...] Differential Ord2 RDW 14.2 % 06/12/2015 CBC 1731484 WBC 8.7 10e9/L 04/30/2013 CBC 6525572 RBC 4.63 10e12/L 04/30/2013 CBC 0517421 HGB 14.1 g/dL 04/30/2013 CBC 4038311 HCT DET 42.2 % 04/30/2013 CBC 2378168 MCV 91.1 fL 04/30/2013 CBC 0950769 MCH 30.5 pg 04/30/2013 CBC 2462581 MCHC 33.4 g/dL 04/30/2013 CBC 1749885 PLT 248 10e9/L 04/30/2013 CBC 2357193 MPV 12.1 fL 04/30/2013 CBC 7129270 LARA % 59.0 % 04/30/2013 CBC 3287449 LY % 27.6 % 04/30/2013 CBC 2250066 MON % 8.0 % 04/30/2013 CBC 4449555 EOS % 4.8 % 04/30/2013 CBC 3346579 BASO % 0.6 % 04/30/2013 CBC 6006997 RDW 13.3 % 04/30/2013 CBC 0549996 ABS LARA 5.13 10e9/L 04/30/2013 CBC 5909468 ABS LYMPH 2.40 10e9/L 04/30/2013 CBC 8697796 ABS MONO 0.70 10e9/L 04/30/2013 CBC 7829177 ABS EOS 0.42 10e9/L 04/30/2013 CBC 7807509 ABS BASO 0.05 10e9/L 04/30/2013 CBC 5387422 RDW-SD 43.1 fL 04/30/2013 TSH 5703128 TSH 4.339 uIU/ML 04/30/2013 A1C HPLC 0622546 A1C HPLC 53579-1 5.6 % 04/30/2013 FREE T4 5875505 FREE T4 0.84 NG/DL 04/30/2013 GFR CALC 9307350 GFR AA >60 ML/MIN 04/30/2013 GFR CALC 0740629 GFR NON-AA >60 ML/MIN 04/30/2013 CHEM 14 5918556 AST 22 U/L 04/30/2013 CHEM 14 0129266 ALT 22 IU/L 04/30/2013 CHEM 14 0760728 BUN 24 MG/DL 04/30/2013 CHEM 14 7254110 ALBUMIN 4.2 GM/DL 04/30/2013 CHEM 14 1663786 CHLORIDE 107 MMOL/L 04/30/2013 CHEM 14 0904820 BILI TOT 0.3 MG/DL 04/30/2013 CHEM 14 3107591 ALK PHOS 88 U/L 04/30/2013 CHEM 14 2761625 SODIUM 141 MMOL/L 04/30/2013 CHEM 14 8921174 CREATININE 0.60 MG/DL 04/30/2013 CHEM 14 7991713 CALCIUM 9.9 MG/DL 04/30/2013 CHEM 14 3580054 POTASSIUM 3.7 MMOL/L 04/30/2013 CHEM 14 5608882 PROT TOT 6.6 GM/DL 04/30/2013 CHEM 14 5139885 GLUCOSE 123 MG/DL 04/30/2013 CHEM 14 1012656 BICARB 25 MMOL/L 04/30/2013 CHEM 14 0650302 ANION GAP 9 MEQ/L 04/30/2013 LIPID GRP HDL TEST 46 MG/DL 04/30/2013 LIPID GRP TRIG 148 MG/DL 04/30/2013 LIPID GRP TEST LDL 75 MG/DL 04/30/2013 LIPID GRP CHOL 151 MG/DL 04/30/2013 LIPID GRP RCHOL/HDL 3.28 RATIO 04/30/2013 TSH 7149780 TSH 3.341 uIU/ML 11/29/2012 CBC 7134271 WBC 8.4 10e9/L 11/29/2012 CBC 1562863 RBC 4.77 10e12/L 11/29/2012 CBC 7424675 HGB 14.9 g/dL 11/29/2012 CBC 1940066 HCT DET 44.2 % 11/29/2012 CBC 5809483 MCV 92.7 fL 11/29/2012 CBC 0773929 MCH 31.2 pg 11/29/2012 CBC 8234125 MCHC 33.7 g/dL 11/29/2012 CBC 0738376 PLT 253 10e9/L 11/29/2012 CBC 9596507 MPV 11.8 fL 11/29/2012 CBC 4281807 LARA % 54.9 % 11/29/2012 CBC 1384060 LY % 29.0 % 11/29/2012 CBC 1039909 MON % 10.4 % 11/29/2012 CBC 5590592 EOS % 5.1 % 11/29/2012 CBC 0601294 BASO % 0.6 % 11/29/2012 CBC 4088650 RDW 13.8 % 11/29/2012 CBC 3839573 ABS LARA 4.61 10e9/L 11/29/2012 CBC 8311702 ABS LYMPH 2.44 10e9/L 11/29/2012 CBC 4082349 ABS MONO 0.87 10e9/L 11/29/2012 CBC 0340865 ABS EOS 0.43 10e9/L 11/29/2012 CBC 9490552 ABS BASO 0.05 10e9/L 11/29/2012 CBC 5905317 RDW-SD 45.9 fL 11/29/2012 CHEM 14 4693032 AST 25 U/L 11/29/2012 CHEM 14 8296195 ALT 26 IU/L 11/29/2012 CHEM 14 3205656 BUN 25 MG/DL 11/29/2012 CHEM 14 5255050 ALBUMIN 4.4 GM/DL 11/29/2012 CHEM 14 8053243 CHLORIDE 106 MMOL/L 11/29/2012 CHEM 14 9469545 BILI TOT 0.4 MG/DL 11/29/2012 CHEM 14 6317853 ALK PHOS 86 U/L 11/29/2012 CHEM 14 3563455 SODIUM 141 MMOL/L 11/29/2012 CHEM 14 0262924 CREATININE 0.80 MG/DL 11/29/2012 CHEM 14 5414619 CALCIUM 9.7 MG/DL 11/29/2012 CHEM 14 9930870 POTASSIUM 4.0 MMOL/L 11/29/2012 CHEM 14 2916873 PROT TOT 6.6 GM/DL 11/29/2012 CHEM 14 3768448 GLUCOSE 112 MG/DL 11/29/2012 CHEM 14 6966587 BICARB 29 MMOL/L 11/29/2012 CHEM 14 8950281 ANION GAP 6 MEQ/L 11/29/2012 A1C HPLC 9153988 A1C HPLC 06716-3 5.5 % 11/29/2012 LIPID GRP HDL TEST 54 MG/DL 11/29/2012 LIPID GRP TRIG 77 MG/DL 11/29/2012 LIPID GRP TEST LDL 78 MG/DL 11/29/2012 LIPID GRP CHOL 147 MG/DL 11/29/2012 LIPID GRP RCHOL/HDL 2.72 RATIO 11/29/2012 FREE T4 6873452 FREE T4 1.23 NG/DL 11/29/2012 GFR CALC 5295498 GFR AA >60 ML/MIN 11/29/2012 GFR CALC 6762170 GFR NON-AA >60 ML/MIN 11/29/2012 CHEM 14 7670055 AST 23 U/L 08/07/2012 CHEM 14 1177842 ALT 34 IU/L 08/07/2012 CHEM 14 8568712 BUN 26 MG/DL 08/07/2012 CHEM 14 2241885 ALBUMIN 4.4 GM/DL 08/07/2012 CHEM 14 2542795 CHLORIDE 105 MMOL/L 08/07/2012 CHEM 14 6160374 BILI TOT 0.5 MG/DL 08/07/2012 CHEM 14 2488260 ALK PHOS 79 U/L 08/07/2012 CHEM 14 1846702 SODIUM 140 MMOL/L 08/07/2012 CHEM 14 6456544 CREATININE 0.71 MG/DL 08/07/2012 CHEM 14 0765630 CALCIUM 10.4 MG/DL 08/07/2012 CHEM 14 4750841 POTASSIUM 3.8 MMOL/L 08/07/2012 CHEM 14 7475965 PROT TOT 6.8 GM/DL 08/07/2012 CHEM 14 3609556 GLUCOSE 104 MG/DL 08/07/2012 CHEM 14 9052664 BICARB 27 MMOL/L 08/07/2012 CHEM 14 9888495 ANION GAP 8 MEQ/L 08/07/2012 A1C HPLC 8465844 A1C HPLC 03687-0 5.4 % 08/07/2012 FREE T4 1320766 FREE T4 1.11 NG/DL 08/07/2012 LIPID GRP HDL TEST 50 MG/DL 08/07/2012 LIPID GRP TRIG 127 MG/DL 08/07/2012 LIPID GRP TEST LDL 93 MG/DL 08/07/2012 LIPID GRP CHOL 168 MG/DL 08/07/2012 LIPID GRP RCHOL/HDL 3.36 RATIO 08/07/2012 CBC 4230166 WBC 8.7 10e9/L 08/07/2012 CBC 0169237 RBC 4.67 10e12/L 08/07/2012 CBC 6774716 HGB 14.4 g/dL 08/07/2012 CBC 1243341 HCT DET 42.8 % 08/07/2012 CBC 4064759 MCV 91.6 fL 08/07/2012 CBC 4568560 MCH 30.8 pg 08/07/2012 CBC 5756395 MCHC 33.6 g/dL 08/07/2012 CBC 6325471 PLT 271 10e9/L 08/07/2012 CBC 4189200 MPV 12.3 fL 08/07/2012 CBC 3961953 LARA % 50.6 % 08/07/2012 CBC 6297402 LY % 34.9 % 08/07/2012 CBC 5704261 MON % 9.1 % 08/07/2012 CBC 3256426 EOS % 5.1 % 08/07/2012 CBC 2029294 BASO % 0.3 % 08/07/2012 CBC 3184867 RDW 13.6 % 08/07/2012 CBC 1412548 ABS LARA 4.40 10e9/L 08/07/2012 CBC 0093699 ABS LYMPH 3.04 10e9/L 08/07/2012 CBC 8836698 ABS MONO 0.79 10e9/L 08/07/2012 CBC 9052286 ABS EOS 0.44 10e9/L 08/07/2012 CBC 1329682 ABS BASO 0.03 10e9/L 08/07/2012 CBC 5589890 RDW-SD 44.1 fL 08/07/2012 TSH 0523927 TSH 7.419 uIU/ML 08/07/2012 GFR CALC 0722049 GFR AA >60 ML/MIN 08/07/2012 GFR CALC 6900165 GFR NON-AA >60 ML/MIN 08/07/2012 A1C HPLC 4893677 A1C HPLC 51306-8 5.3 % 02/21/2012 TSH 5206690 TSH 0.832 uIU/ML 02/16/2012 FREE T4 6476844 FREE T4 1.04 NG/DL 02/16/2012 GFR CALC 6168160 GFR AA >60 ML/MIN 02/16/2012 GFR CALC 2762830 GFR NON-AA >60 ML/MIN 02/16/2012 BMP 3761958 GLUCOSE 112 MG/DL 02/16/2012 BMP 7841257 CREATININE 0.65 MG/DL 02/16/2012 BMP 4273374 BUN 17 MG/DL 02/16/2012 BMP 5494803 SODIUM 144 MMOL/L 02/16/2012 BMP 3492703 POTASSIUM 4.0 MMOL/L 02/16/2012 BMP 5900395 CHLORIDE 107 MMOL/L 02/16/2012 BMP 7671823 BICARB 29 MMOL/L 02/16/2012 BMP 6462542 ANION GAP 8 MEQ/L 02/16/2012 BMP 2875017 CALCIUM 9.5 MG/DL 02/16/2012 CBC 4736016 WBC 7.1 10e9/L 02/16/2012 CBC 2761218 RBC 4.47 10e12/L 02/16/2012 CBC 6088695 HGB 13.5 g/dL 02/16/2012 CBC 8963594 HCT DET 40.7 % 02/16/2012 CBC 5762635 MCV 91.1 fL 02/16/2012 CBC 5650958 MCH 30.2 pg 02/16/2012 CBC 8284500 MCHC 33.2 g/dL 02/16/2012 CBC 1362902 PLT 238 10e9/L 02/16/2012 CBC 8044971 MPV 11.4 fL 02/16/2012 CBC 5495930 LARA % 55.7 % 02/16/2012 CBC 2366749 LY % 29.6 % 02/16/2012 CBC 0641634 MON % 9.2 % 02/16/2012 CBC 5085995 EOS % 5.1 % 02/16/2012 CBC 8159147 BASO % 0.4 % 02/16/2012 CBC 8601190 RDW 13.0 % 02/16/2012 CBC 1652762 ABS LARA 3.95 10e9/L 02/16/2012 CBC 1301902 ABS LYMPH 2.10 10e9/L 02/16/2012 CBC 1382430 ABS MONO 0.65 10e9/L 02/16/2012 CBC 0966109 ABS EOS 0.36 10e9/L 02/16/2012 CBC 1433261 ABS BASO 0.03 10e9/L 02/16/2012 CBC 4303398 RDW-SD 42.4 fL 02/16/2012 URINALYSIS NONAUTO W/O SCOPE 42409 Specific [place] 1.015 DateTime(Free Text in Aprima) URINALYSIS NONAUTO W/O SCOPE 75989 PH 7 DateTime(Free Text in Aprima) URINALYSIS NONAUTO W/O SCOPE 40267 GLUCOSE neg DateTime(Free Text in Aprima) URINALYSIS NONAUTO W/O SCOPE 56619 Protein 1+ DateTime(Free Text in Apr[employer]) URINALYSIS NONAUTO W/O SCOPE 15500 Blood neg DateTime(Free Text in Apr[employer]) URINALYSIS NONAUTO W/O SCOPE 84139 Bilirubin neg DateTime(Free Text in Aprima) URINALYSIS NONAUTO W/O SCOPE 70544 Ketones neg DateTime(Free Text in Apr[employer]) URINALYSIS NONAUTO W/O SCOPE 15797 Urobilinogen neg DateTime(Free Text in Aprima) URINALYSIS NONAUTO W/O SCOPE 59294 Nitrite postive DateTime(Free Text in Aprima) URINALYSIS NONAUTO W/O SCOPE 15206 Leukocytes 3+ DateTime(Free Text in Aprima) URINALYSIS NONAUTO W/O SCOPE 76414 Specific [place] 1.030 DateTime(Free Text in Aprima) URINALYSIS NONAUTO W/O SCOPE 55406 PH 6 DateTime(Free Text in Aprima) URINALYSIS NONAUTO W/O SCOPE 39105 GLUCOSE neg DateTime(Free Text in Aprima) URINALYSIS NONAUTO W/O SCOPE 54160 Protein neg DateTime(Free Text in Aprima) URINALYSIS NONAUTO W/O SCOPE 26149 Blood neg DateTime(Free Text in Aprima) URINALYSIS NONAUTO W/O SCOPE 73873 Bilirubin neg DateTime(Free Text in Aprima) URINALYSIS NONAUTO W/O SCOPE 71967 Ketones neg DateTime(Free Text in Aprima) URINALYSIS NONAUTO W/O SCOPE 36849 Urobilinogen neg DateTime(Free Text in Aprima) URINALYSIS NONAUTO W/O SCOPE 60455 Nitrite neg DateTime(Free Text in Aprima) URINALYSIS NONAUTO W/O SCOPE 37167 Leukocytes trace DateTime(Free Text in Aprima) URINALYSIS NONAUTO W/O SCOPE 78790 Specific [place] 1.005 DateTime(Free Text in Aprima) URINALYSIS NONAUTO W/O SCOPE 41367 PH 5 DateTime(Free Text in Aprima) URINALYSIS NONAUTO W/O SCOPE 29376 GLUCOSE neg DateTime(Free Text in Aprima) URINALYSIS NONAUTO W/O SCOPE 13185 Protein neg DateTime(Free Text in Aprima) URINALYSIS NONAUTO W/O SCOPE 12884 Blood neg DateTime(Free Text in Aprima) URINALYSIS NONAUTO W/O SCOPE 38052 Bilirubin neg DateTime(Free Text in Aprima) URINALYSIS NONAUTO W/O SCOPE 52562 Ketones neg DateTime(Free Text in Aprima) URINALYSIS NONAUTO W/O SCOPE 06620 Urobilinogen neg DateTime(Free Text in Aprima) URINALYSIS NONAUTO W/O SCOPE 35231 Nitrite neg DateTime(Free Text in Aprima) URINALYSIS NONAUTO W/O SCOPE 32784 Leukocytes neg DateTime(Free Text in Aprima) UA 08472 Specific [place] 1.030 DateTime(Free Text in Aprima) UA 24686 PH 5 DateTime(Free Text in Aprima) UA 79574 GLUCOSE neg DateTime(Free Text in Aprima) UA 66567 Protein trace DateTime(Free Text in Aprima) UA 41019 Blood large DateTime(Free Text in Aprima) UA 06373 Bilirubin neg DateTime(Free Text in Aprima) UA 07621 Ketones neg DateTime(Free Text in ) UA 61144 Urobilinogen neg DateTime(Free Text in ) UA 16976 Nitrite neg DateTime(Free Text in ) UA 65816 Leukocytes large DateTime(Free Text in ) Review [...] Codes Date URINALYSIS NONAUTO W/O SCOPE CPT-4: 90193 07/10/2018 TRIAMCINOLONE ACET INJ NOS CPT-4: J3301 05/28/2018 ROCEPHIN, PER 250 MG CPT- 4: J0696 05/28/2018 ROCEPHIN, PER 250 MG CPT- 4: J0696 01/19/2018 TRIAMCINOLONE ACET INJ NOS CPT-4: J3301 01/19/2018 PPPS, SUBSEQ VISIT CPT- 4: G0439 11/23/2017 TRIAMCINOLONE ACET INJ NOS CPT-4: J3301 06/27/2017 THER/PROPH/DIAG INJ SC/IM CPT-4: 72189 04/20/2017 TRIAMCINOLONE ACET INJ NOS CPT-4: J3301 04/20/2017 TRIAMCINOLONE ACET INJ NOS CPT-4: J3301 03/14/2017 ROCEPHIN, PER 250 MG CPT- 4: J0696 03/14/2017 DESTRUCT PREMALG LESION CPT-4: 08318 12/05/2016 DESTRUCT PREMALG LES 2-14 CPT-4: 18426 12/05/2016 URINALYSIS NONAUTO W/O SCOPE CPT-4: 02282 11/28/2016 ROCEPHIN, PER 250 MG CPT- 4: J0696 11/28/2016 PPPS, SUBSEQ VISIT CPT- 4: G0439 11/07/2016 THER/PROPH/DIAG INJ SC/IM CPT-4: 84006 11/07/2016 TRIAMCINOLONE ACET INJ NOS CPT-4: J3301 11/07/2016 ROCEPHIN, PER 250 MG CPT- 4: J0696 11/07/2016 THER/PROPH/DIAG INJ SC/IM CPT-4: 47714 08/15/2016 TRIAMCINOLONE ACET INJ NOS CPT-4: J3301 08/15/2016 ROCEPHIN, PER 250 MG CPT- 4: J0696 08/15/2016 URINALYSIS NONAUTO W/O SCOPE CPT-4: 91304 05/05/2016 ROCEPHIN, PER 250 MG CPT- 4: J0696 12/07/2015 TRIAMCINOLONE ACET INJ NOS CPT-4: J3301 11/24/2015 ROCEPHIN, PER 250 MG CPT- 4: J0696 11/24/2015 THER/PROPH/DIAG INJ SC/IM CPT-4: 23346 11/24/2015 THER/PROPH/DIAG INJ SC/IM CPT-4: 02200 08/27/2015 KETOROLAC TROMETHAMINE INJ CPT-4: J1885 08/27/2015 PROMETHAZINE HCL INJECTION CPT-4: J2550 08/27/2015 THER/PROPH/DIAG INJ SC/IM CPT-4: 73498 08/10/2015 TRIAMCINOLONE ACET INJ NOS CPT-4: J3301 08/10/2015 ROCEPHIN, PER 250 MG CPT- 4: J0696 08/10/2015 C WOUN RTS (CULTURE OTHR SPECIMN AEROBIC) CPT-4: 91916 07/28/2015 THER/PROPH/DIAG INJ SC/IM CPT-4: 08990 03/19/2015 TRIAMCINOLONE ACET INJ NOS CPT-4: J3301 03/19/2015 ROCEPHIN, PER 250 MG CPT- 4: J0696 06/23/2014 TRIAMCINOLONE ACET INJ NOS CPT-4: J3301 06/23/2014 INJ TRIGGER POINT 1/2 MUSCL CPT-4: 91225 06/05/2014 URINALYSIS NONAUTO W/O SCOPE CPT-4: 34578 02/11/2014 URINALYSIS NONAUTO W/O SCOPE CPT-4: 75349 10/15/2013 ROCEPHIN, PER 250 MG CPT- 4: J0696 09/24/2013 THER/PROPH/DIAG INJ SC/IM CPT-4: 76846 09/19/2013 ROCEPHIN, PER 250 MG CPT- 4: J0696 09/19/2013 PRESCRIP TRANSMIT VIA ERX SY CPT-4: G8553 08/05/2013 ROCEPHIN, PER 250 MG CPT- 4: J0696 07/10/2013 THER/PROPH/DIAG INJ SC/IM CPT-4: 47632 07/10/2013 TRIAMCINOLONE ACET INJ NOS CPT-4: J3301 07/10/2013 PRESCRIP TRANSMIT VIA ERX SY CPT-4: G8553 07/10/2013 06802 EST. PATIENT, LEVEL III CPT-4: 52556 06/03/2013 PRESCRIP TRANSMIT VIA ERX SY CPT-4: G8553 06/03/2013 PRESCRIP TRANSMIT VIA ERX SY CPT-4: G8553 05/07/2013 ROUTINE VENIPUNCTURE CPT- 4: 89703 04/30/2013 ROUTINE VENIPUNCTURE CPT- 4: 63057 11/29/2012 TRIAMCINOLONE ACET INJ NOS CPT-4: J3301 09/24/2012 THER/PROPH/DIAG INJ SC/IM CPT-4: 25403 09/24/2012 URINALYSIS NONAUTO W/O SCOPE CPT-4: 63779 09/24/2012 PRESCRIP TRANSMIT VIA ERX SY CPT-4: G8553 09/24/2012 PRESCRIP TRANSMIT VIA ERX SY CPT-4: G8553 09/10/2012 PRESCRIP TRANSMIT VIA ERX SY CPT-4: G8553 08/08/2012 ROUTINE VENIPUNCTURE CPT- 4: 19173 08/07/2012 ROUTINE VENIPUNCTURE CPT- 4: 49762 02/16/2012 URINALYSIS NONAUTO W/O SCOPE CPT-4: 54562 02/15/2012 ROCEPHIN, PER 250 MG CPT- 4: J0696 02/15/2012 PRESCRIP TRANSMIT VIA ERX SY CPT-4: G8553 02/15/2012 ROUTINE VENIPUNCTURE CPT- 4: 99661 11/08/2011 ROCEPHIN, PER 250 MG CPT- 4: J0696 07/14/2011 THER/PROPH/DIAG INJ SC/IM CPT-4: 95980 07/14/2011 Influenza Virus Vaccine, Split Virus, >3 Yrs, IM CPT-4: 87798 05/23/2011 IMMUNIZATION ADMIN CPT- 4: 37093 05/23/2011 THER/PROPH/DIAG INJ SC/IM CPT-4: 93767 05/03/2011 ROCEPHIN, PER 250 MG CPT- 4: J0696 05/03/2011 TRIAMCINOLONE ACET INJ NOS CPT-4: J3301 05/03/2011 Vital Signs Date Vital 11/13/2018 Blood Pressure 1: 184/98 Code: 8480-6 BMI: 32.1 Code: 95159-2 Heart Rate 1: 68 bpm Height: 4'11" SpO2: 96% Weight: 159 lbs 10/30/2018 Blood Pressure 1: 158/98 Code: 8480-6 BMI: 31.7 Code: 54091-4 Heart Rate 1: 80 bpm Height: 4'11" SpO2: 96% Weight: 157 lbs 10/08/2018 Blood Pressure 1: 140/80 Code: 8480-6 BMI: 32.1 Code: 58717-0 Heart Rate 1: 92 bpm Height: 4'11" SpO2: 103% Weight: 159 lbs 07/16/2018 Blood Pressure 1: 142/80 Code: 8480-6 BMI: 31.1 Code: 84108-7 Heart Rate 1: 78 bpm Height: 4'11" SpO2: 98% Weight: 154 lbs 07/10/2018 Blood Pressure 1: 156/82 Code: 8480-6 BMI: 31.1 Code: 10793-9 Heart Rate 1: 63 bpm Height: 4'11" SpO2: 99% Weight: 154 lbs 05/28/2018 Blood Pressure 1: 142/80 Code: 8480-6 Heart Rate 1: 82 bpm Height: SpO2: 97% Temperature: 35.9 (C) / 96.6 (F) Weight: 02/07/2018 Height: Weight: 01/19/2018 Blood Pressure 1: 128/76 Code: 8480-6 BMI: 31.2 Code: 18840-5 Heart Rate 1: 71 bpm Height: 4'11" SpO2: 96% Temperature: 36.5 (C) / 97.7 (F) Weight: 154 lbs 8 oz 11/23/2017 Blood Pressure 1: 146/80 Code: 8480-6 BMI: 31.7 Code: 68322-4 Heart Rate 1: 64 bpm Height: 4'11" SpO2: 97% Waist Measure (cm): 89 cm Weight: 157 lbs 09/12/2017 Blood Pressure 1: 140/86 Code: 8480-6 Heart Rate 1: 62 bpm SpO2: 96% Temperature: 36.6 (C) / 97.8 (F) Weight: 153 lbs 07/25/2017 Blood Pressure 1: 140/72 Code: 8480-6 BMI: 31.3 Code: 91762-8 Heart Rate 1: 76 bpm Height: 4'11" SpO2: 97% Temperature: 37.2 (C) / 99.0 (F) Weight: 155 lbs 06/27/2017 Blood Pressure 1: 144/84 Code: 8480-6 BMI: 31.1 Code: 36007-1 Heart Rate 1: 63 bpm Height: 4'11" SpO2: 99% Temperature: 36.4 (C) / 97.6 (F) Weight: 154 lbs 05/08/2017 Blood Pressure 1: 142/86 Code: 8480-6 BMI: 30.9 Code: 61363-6 Height: 4'11" Temperature: 36.3 (C) / 97.4 (F) Weight: 153 lbs 03/14/2017 Blood Pressure 1: 146/82 Code: 8480-6 BMI: 30.9 Code: 84722-9 Heart Rate 1: 64 bpm Height: 4'11" SpO2: 94% Weight: 153 lbs 02/20/2017 Blood Pressure 1: 142/80 Code: 8480-6 BMI: 30.9 Code: 93697-7 Heart Rate 1: 75 bpm Height: 4'11" SpO2: 97% Weight: 153 lbs 02/06/2017 Blood Pressure 1: 138/90 Code: 8480-6 BMI: 31.5 Code: 65908-7 Heart Rate 1: 61 bpm Height: 4'11" SpO2: 98% Weight: 156 lbs 12/05/2016 Blood Pressure 1: 122/72 Code: 8480-6 Heart Rate 1: 59 bpm Height: 4'11" SpO2: 98% Weight: 11/28/2016 Blood Pressure 1: 154/86 Code: 8480-6 BMI: 31.3 Code: 27450-5 Heart Rate 1: 64 bpm Height: 4'11" SpO2: 94% Temperature: 36.2 (C) / 97.2 (F) Weight: 155 lbs 11/07/2016 Blood Pressure 1: 128/64 Code: 8480-6 BMI: 31.5 Code: 06408-6 Heart Rate 1: 59 bpm Height: 4'11" SpO2: 97% Weight: 156 lbs 08/15/2016 Blood Pressure 1: 110/62 Code: 8480-6 BMI: 31.5 Code: 41062-3 Heart Rate 1: 76 bpm Height: 4'11" SpO2: 97% Weight: 156 lbs 06/07/2016 Blood Pressure 1: 120/80 Code: 8480-6 BMI: 32.9 Code: 23048-2 Heart Rate 1: 63 bpm Height: 4'11" SpO2: 93% Temperature: 36.5 (C) / 97.7 (F) Weight: 163 lbs 03/15/2016 Blood Pressure 1: 90/42 Code: 8480-6 Heart Rate 1: 65 bpm SpO2: 94% 03/14/2016 Blood Pressure 1: 188/110 Code: 8480-6 Heart Rate 1: 68 bpm SpO2: 96% 02/22/2016 Blood Pressure 1: 158/80 Code: 8480-6 BMI: 32.7 Code: 28346-8 Heart Rate 1: 71 bpm Height: 4'11" SpO2: 95% Weight: 162 lbs 12/07/2015 Blood Pressure 1: 140/88 Code: 8480-6 BMI: 32.9 Code: 88041-7 Heart Rate 1: 99 bpm Height: 4'11" SpO2: 94% Temperature: 35.9 (C) / 96.6 (F) Weight: 163 lbs 11/24/2015 Blood Pressure 1: 144/78 Code: 8480-6 BMI: 33.7 Code: 11166-8 Heart Rate 1: 60 bpm Height: 4'11" SpO2: 98% Temperature: 36.6 (C) / 97.9 (F) Weight: 167 lbs 08/27/2015 Blood Pressure 1: 164/82 Code: 8480-6 BMI: 32.3 Code: 08867-1 Heart Rate 1: 60 bpm Height: 4'11" SpO2: 93% Weight: 160 lbs 08/10/2015 Blood Pressure 1: 130/60 Code: 8480-6 BMI: 32.5 Code: 22285-5 Heart Rate 1: 64 bpm Height: 4'11" SpO2: 97% Weight: 161 lbs 07/28/2015 Blood Pressure 1: 124/68 Code: 8480-6 BMI: 32.5 Code: 40519-3 Heart Rate 1: 69 bpm Height: 4'11" SpO2: 97% Weight: 161 lbs 06/11/2015 Blood Pressure 1: 148/80 Code: 8480-6 BMI: 32.9 Code: 98331-7 Heart Rate 1: 70 bpm Height: 4'11" SpO2: 94% Weight: 163 lbs 03/19/2015 Blood Pressure 1: 150/102 Code: 8480-6 Blood Pressure 2: 152/92 Code: 8480-6 BMI: 32.5 Code: 96798-8 Heart Rate 1: 71 bpm Height: 4'11" SpO2: 96% Weight: 161 lbs 01/07/2015 Blood Pressure 1: 126/84 Code: 8480-6 Heart Rate 1: 80 bpm Height: 4'11" 09/23/2014 Blood Pressure 1: 112/72 Code: 8480-6 BMI: 33.9 Code: 05215-9 Heart Rate 1: 72 bpm Height: 4'11" Weight: 168 lbs 08/05/2014 Blood Pressure 1: 140/86 Code: 8480-6 BMI: 33.3 Code: 60706-2 Height: 4'11" Weight: 165 lbs 06/23/2014 Blood Pressure 1: 132/70 Code: 8480-6 BMI: 32.9 Code: 74688-0 Heart Rate 1: 58 bpm Height: 4'11" Temperature: 36.0 (C) / 96.8 (F) Weight: 163 lbs 06/05/2014 Blood Pressure 1: 121/85 Code: 8480-6 BMI: 34.3 Code: 43809-8 Height: 4'11" Weight: 170 lbs 04/03/2014 Blood Pressure 1: 128/80 Code: 8480-6 Heart Rate 1: 88 bpm Weight: 167 lbs 03/07/2014 Blood Pressure 1: 122/82 Code: 8480-6 BMI: 33.9 Code: 15416-7 Heart Rate 1: 68 bpm Height: 4'11" Weight: 168 lbs 11/21/2013 Blood Pressure 1: 100/58 Code: 8480-6 BMI: 33.7 Code: 88283-8 Heart Rate 1: 64 bpm Height: 4'11" Weight: 167 lbs 09/24/2013 Blood Pressure 1: 148/88 Code: 8480-6 Heart Rate 1: 68 bpm Weight: 09/19/2013 Blood Pressure 1: 120/80 Code: 8480-6 BMI: 33.9 Code: 50444-9 Heart Rate 1: 80 bpm Height: 4'11" Temperature: 36.9 (C) / 98.5 (F) Weight: 168 lbs 08/05/2013 Blood Pressure 1: 128/80 Code: 8480-6 BMI: 34.3 Code: 11790-5 Heart Rate 1: 64 bpm Height: 4'11" Temperature: 36.2 (C) / 97.2 (F) Weight: 170 lbs 07/10/2013 Blood Pressure 1: 120/84 Code: 8480-6 BMI: 36.0 Code: 43017-4 Heart Rate 1: 90 bpm Height: 4'11" SpO2: 97% Temperature: 36.8 (C) / 98.2 (F) Weight: 178 lbs 06/03/2013 Blood Pressure 1: 136/94 Code: 8480-6 BMI: 34.7 Code: 14767-2 Heart Rate 1: 68 bpm Height: 4'11" Temperature: 36.7 (C) / 98.0 (F) Weight: 172 lbs 05/13/2013 Blood Pressure 1: 132/90 Code: 8480-6 Heart Rate 1: 68 bpm 05/07/2013 Blood Pressure 1: 168/100 Code: 8480-6 BMI: 34.3 Code: 10486-0 Heart Rate 1: 76 bpm Height: 4'11" Weight: 170 lbs 12/03/2012 Blood Pressure 1: 142/78 Code: 8480-6 BMI: 33.5 Code: 06556-7 Heart Rate 1: 76 bpm Height: 4'11" Weight: 166 lbs 09/24/2012 Blood Pressure 1: 116/70 Code: 8480-6 Heart Rate 1: 68 bpm Respiratory Rate: 16 bpm Temperature: 36.9 (C) / 98.4 (F) Weight: 162 lbs 09/10/2012 Blood Pressure 1: 116/80 Code: 8480-6 BMI: 33.7 Code: 38454-8 Heart Rate 1: 76 bpm Height: 4'11" [...] 1: 149/85 Code: 8480-6 BMI: 32.9 Code: 63189-0 Heart Rate 1: 79 bpm Height: 4'11" Weight: 164 lbs 05/03/2011 Blood Pressure 1: 122/79 Code: 8480-6 BMI: 30.8 Code: 68866-1 Heart Rate 1: 72 bpm Height: 5'1" Weight: 163 lbs 04/25/2011 Blood Pressure 1: 137/84 Code: 8480-6 BMI: 31.0 Code: 84999-3 Heart Rate 1: 63 bpm Height: 5'1" [...] days ago 02/15/2012 while visiting mother in [place] had uti and was put on pyridum [...] Quality chronic 08/01/2011 states went shopping on [facility] [employer] over night without taking any of medications [...] Encounters Encounter Performer Location Codes Date ( 17928 EST. PATIENT, LEVEL III Diagnosis: Essential (primary) hypertension[ICD10: I10] Shahida Goldman MD, [facility] CPT-4: 20599 11/13/2018 ([id number]) 51574 EST. PATIENT, LEVEL IV Diagnosis: Essential (primary) hypertension[ICD10: I10] Diagnosis: Mixed hyperlipidemia[ICD10: E78.2] Diagnosis: Hypothyroidism, unspecified[ICD10: E03.9] Shahida Goldman MD, [facility] CPT-4: 14101 10/30/2018 16595 EST. PATIENT, LEVEL III Diagnosis: Other mucopurulent conjunctivitis, bilateral[ICD10: H10.023] Diagnosis: Other allergic rhinitis[ICD10: J30.89] Shahida Goldman MD, [facility] CPT-4: 06449 10/08/2018 23157 EST. PATIENT, LEVEL III Diagnosis: Essential (primary) hypertension[ICD10: I10] Diagnosis: Generalized anxiety disorder[ICD10: F41.1] Isabelle Goldman MD, [facility] CPT-4: 82156 07/16/2018 ([id number]) 82507 EST. PATIENT, LEVEL III Diagnosis: Acute recurrent maxillary sinusitis[ICD10: J01.01] Diagnosis: Frequency of micturition[ICD10: R35.0] Diagnosis: Low back pain[ICD10: M54.5] Shahida Goldman MD, [facility] CPT-4: 34237 07/10/2018 ([id number]) 23014 EST. PATIENT, LEVEL III Diagnosis: Acute recurrent maxillary sinusitis[ICD10: J01.01] Shahida Goldman MD, [facility] CPT-4: 16484 05/28/2018 ([id number]) Miscellaneous no charge Diagnosis: Laceration without foreign body, left lower leg, subsequent encounter[ICD10: S81.812D] Diagnosis: Laceration without foreign body, right lower leg, subsequent encounter[ICD10: S81.811D] Isabelle Goldman MD, [facility] CPT-4: 27265 02/08/2018 98614 EST. PATIENT, LEVEL III Diagnosis: Cellulitis of left lower limb[ICD10: L03.116] Diagnosis: Cellulitis of right lower limb[ICD10: L03.115] Diagnosis: Laceration without foreign body, left lower leg, initial encounter[ICD10: S81.812A] Diagnosis: Laceration without foreign body, right lower leg, initial encounter[ICD10: S81.811A] Isabelle Goldman MD, [facility] CPT-4: 88382 02/07/2018 ([id number]) 21295 EST. PATIENT, LEVEL IV Diagnosis: Primary generalized (osteo)arthritis[ICD10: M15.0] Diagnosis: Acute recurrent maxillary sinusitis[ICD10: J01.01] Diagnosis: Low back pain[ICD10: M54.5] Diagnosis: Other allergic rhinitis[ICD10: J30.89] Diagnosis: Obstructive sleep apnea (adult) (pediatric)[ICD10: G47.33] Shahida Goldman MD, [facility] CPT-4: 76430 01/19/2018 83369 EST. PATIENT, LEVEL IV Diagnosis: Diarrhea, unspecified[ICD10: R19.7] Diagnosis: Generalized abdominal pain[ICD10: R10.84] Diagnosis: Other allergic rhinitis[ICD10: J30.89] Diagnosis: Other acute sinusitis[ICD10: J01.80] Isabelle Goldman MD, [facility] CPT- 4: 62718 09/12/2017 31109 EST. PATIENT, LEVEL III Diagnosis: Acute laryngopharyngitis[ICD10: J06.0] Diagnosis: Other allergic rhinitis[ICD10: J30.89] Diagnosis: Cough[ICD10: R05] Diagnosis: Wheezing[ICD10: R06.2] Isabelle Goldman MD, [facility] CPT-4: 51718 07/25/2017 ([id number]) 45644 EST. PATIENT, LEVEL IV Diagnosis: Acute recurrent maxillary sinusitis[ICD10: J01.01] Diagnosis: Cervicalgia[ICD10: M54.2] Diagnosis: Diarrhea, unspecified[ICD10: R19.7] Shahida Goldman MD, [facility] CPT-4: 39401 06/27/2017 ([id number]) 79550 EST. PATIENT, LEVEL III Diagnosis: Chronic maxillary sinusitis[ICD10: J32.0] Diagnosis: Gastro-esophageal reflux disease without esophagitis[ICD10: K21.9] Shahida Goldman MD, [facility] CPT-4: 68196 05/08/2017 ([id number]) 73392 EST. PATIENT, LEVEL III Diagnosis: Acute recurrent maxillary sinusitis[ICD10: J01.01] Shahida Goldman MD, [facility] CPT-4: 90638 03/14/2017 79599 EST. PATIENT, LEVEL IV Diagnosis: Epigastric pain[ICD10: R10.13] Diagnosis: Left upper quadrant pain[ICD10: R10.12] Diagnosis: Left lower quadrant pain[ICD10: R10.32] Isabelle Goldman MD, [facility] CPT-4: 56834 02/20/2017 ([id number]) 29519 EST. PATIENT, LEVEL IV Diagnosis: Generalized anxiety disorder[ICD10: F41.1] Diagnosis: Major depressive disorder, recurrent, moderate[ICD10: F33.1] Diagnosis: Left upper quadrant pain[ICD10: R10.12] Diagnosis: Epigastric pain[ICD10: R10.13] Diagnosis: Actinic keratosis[ICD10: L57.0] Melba Goldman MD, [facility] CPT-4: 94256 02/06/2017 ([id number]) 95393 EST. PATIENT, LEVEL III Diagnosis: Actinic keratosis[ICD10: L57.0] Diagnosis: Major depressive disorder, recurrent, moderate[ICD10: F33.1] Melba Goldmna MD, [facility] CPT-4: 78130 12/05/2016 ([id number]) 93762 EST. PATIENT, LEVEL III Diagnosis: Acute recurrent maxillary sinusitis[ICD10: J01.01] Diagnosis: Dysuria[ICD10: R30.0] Shahida Goldman MD, [facility] CPT-4: 77680 11/28/2016 80094 EST. PATIENT, LEVEL IV Diagnosis: Other acute sinusitis[ICD10: J01.80] Diagnosis: Acute laryngopharyngitis[ICD10: J06.0] Diagnosis: Other allergic rhinitis[ICD10: J30.89] Isabelle Goldman MD, [facility] CPT- 4: 64746 08/15/2016 ([id number]) 23995 EST. PATIENT, LEVEL III Diagnosis: Acute recurrent maxillary sinusitis[ICD10: J01.01] Diagnosis: Low back pain[ICD10: M54.5] Shahida Goldman MD, [facility] CPT-4: 22513 06/07/2016 ([id number]) Miscellaneous no charge Diagnosis: Essential (primary) hypertension[ICD10: I10] Shahida Goldman MD, [facility] CPT-4: 42589 03/15/2016 25132 EST. PATIENT, LEVEL IV Diagnosis: Essential (primary) hypertension[ICD10: I10] Diagnosis: Headache[ICD10: R51] Diagnosis: Generalized anxiety disorder[ICD10: F41.1] Shahida Goldman MD, [facility] CPT-4: 38906 03/14/2016 99337 EST. PATIENT, LEVEL III Diagnosis: Laceration without foreign body, left lower leg, initial encounter[ICD10: S81.812A] Isabelle Goldman MD, [facility] CPT-4: 05714 02/22/2016 ([id number]) 47745 EST. PATIENT, LEVEL III Diagnosis: Acute recurrent maxillary sinusitis[ICD10: J01.01] Diagnosis: Cough[ICD10: R05] Diagnosis: Allergic rhinitis due to pollen[ICD10: J30.1] Shahida Goldman MD, [facility] CPT-4: 48537 12/07/2015 ([id number]) 19517 EST. PATIENT, LEVEL IV Diagnosis: Essential (primary) hypertension[ICD10: I10] Diagnosis: Acute recurrent maxillary sinusitis[ICD10: J01.01] Diagnosis: Generalized anxiety disorder[ICD10: F41.1] Diagnosis: Cervicalgia[ICD10: M54.2] Diagnosis: Generalized intra-abdominal and pelvic swelling, mass and lump[ICD10: R19.07] Melba Goldman MD, [facility] CPT-4: 50039 11/24/2015 89874 EST. PATIENT, LEVEL III Diagnosis: Other migraine, intractable, without status migrainosus[ICD10: G43.819] Isabelle Goldman MD, [facility] CPT-4: 33955 08/27/2015 28446 EST. PATIENT, LEVEL III Diagnosis: Acute recurrent maxillary sinusitis[ICD10: J01.01] Diagnosis: Candidal stomatitis[ICD10: B37.0] Diagnosis: Acute laryngopharyngitis[ICD10: J06.0] Isabelle Goldman MD, [facility] CPT- 4: 79353 08/10/2015 78917 EST. PATIENT, LEVEL III Diagnosis: Superficial foreign body of left hand, initial encounter[ICD10: S60.552A] Melba Goldman MD, [facility] CPT-4: 02598 07/28/2015 ([id number]) 14519 EST. PATIENT, LEVEL III Diagnosis: Essential (primary) hypertension[ICD10: I10] Diagnosis: Tinea cruris[ICD10: B35.6] Diagnosis: Abnormal levels of other serum enzymes[ICD10: R74.8] Shahida Goldman MD, [facility] CPT-4: 28571 06/11/2015 ([id number]) 89510 EST. PATIENT, LEVEL IV Diagnosis: ESSENTIAL HYPERTENSION[ICD9: 401.9] Diagnosis: Hypothyroid[ICD9: 244.9] Diagnosis: ALLERGIC RHINITIS[ICD9: 477.9] Diagnosis: Anxiety[ICD9: 300.00] Diagnosis: Sleep apnea[ICD9: 780.57] Shahida Goldman MD, [facility] CPT-4: 21201 03/19/2015 ([id number]) 22559 EST. PATIENT, LEVEL III Diagnosis: ACUTE SINUSITIS[ICD9: 461.9] Celi Goldman MD, [facility] CPT-4: 76624 01/07/2015 ([id number]) 19587 EST. PATIENT, LEVEL III Diagnosis: Conjunctivitis[ICD9: 372.30] Shahida Goldman MD, [facility] CPT-4: 32764 09/23/2014 47903 EST. PATIENT, LEVEL II Diagnosis: Noninfected skin tear of leg[ICD9: 891.0] Shahida Goldman MD [facility] CPT-4: 52495 08/05/2014 ([id number]) 24970 EST. PATIENT, LEVEL III Diagnosis: Chronic maxillary sinusitis[ICD9: 473.0] Shahida Goldman MD, [facility] CPT-4: 11081 06/23/2014 11158 EST. PATIENT, LEVEL II Diagnosis: Headache[ICD9: 784.0] Shahida Goldman MD, [facility] CPT-4: 38889 06/05/2014 ([id number]) 79875 EST. PATIENT, LEVEL III Diagnosis: Abrasion of right leg[ICD9: 916.0] Diagnosis: Headache[ICD9: 784.0] Diagnosis: ALLERGIC RHINITIS[ICD9: 477.9] Shahida Goldman MD, [facility] CPT-4: 76035 04/03/2014 50407 EST. PATIENT, LEVEL II Diagnosis: Tinea corporis[ICD9: 110.5] Diagnosis: Exposure to scabies[ICD9: V01.89] Shahida Goldman MD, [facility] CPT- 4: 52373 03/07/2014 ([id number]) 42135 EST. PATIENT, LEVEL III Diagnosis: ESSENTIAL HYPERTENSION[SNOMED: 23980002] Diagnosis: OSTEOARTH NOS-UNSPEC[ICD9: 715.90] Diagnosis: Lumbago[ICD9: 724.2] Diagnosis: Cervicalgia[ICD9: 723.1] Shahida Goldman MD, [facility] CPT-4: 02149 11/21/2013 ([id number]) 50391 EST. PATIENT, LEVEL III Diagnosis: DEPRESSIVE DISORDER NEC[ICD9: 311] Diagnosis: Paronychia[ICD9: 681.9] Melba Goldman MD, [facility] CPT-4: 09348 09/24/2013 ([id number]) 55811 EST. PATIENT, LEVEL III Diagnosis: Paronychia[ICD9: 681.9] Diagnosis: Cellulitis[ICD9: 682.9] Melba Goldman MD [facility] CPT-4: 45802 09/19/2013 ([id number]) 23843 EST. PATIENT, LEVEL III Diagnosis: Conjunctivitis[ICD9: 372.30] Diagnosis: Thrush[ICD9: 112.0] Shahida Goldman MD [facility] CPT-4: 70359 08/05/2013 ([id number]) 02922 EST. PATIENT, LEVEL III Diagnosis: ACUTE MAXILLARY SINUSITIS[ICD9: 461.0] Diagnosis: COUGH[ICD9: 786.2] Diagnosis: Insomnia[ICD9: 780.52] Diagnosis: ESOPHAGEAL REFLUX[ICD9: 530.81] Melba Goldman MD [facility] CPT-4: 42816 07/10/2013 ([id number]) Miscellaneous no charge Diagnosis: ESSENTIAL HYPERTENSION[SNOMED: 72114855] Melba Goldman MD [facility] CPT-4: 73014 05/13/2013 ([id number]) 98935 EST. PATIENT, LEVEL IV Diagnosis: ESSENTIAL HYPERTENSION[SNOMED: 31380124] Diagnosis: HYPOTHYROIDISM[ICD9: 244.9] Diagnosis: OSTEOARTH NOS-UNSPEC[ICD9: 715.90] Melba Goldman MD [facility] CPT- 4: 03036 05/07/2013 ([id number]) 87905 EST. PATIENT, LEVEL IV Diagnosis: Osteoarthritis[ICD9: 715.90] Diagnosis: Knee pain, bilateral[ICD9: 719.46] Diagnosis: Hip pain[ICD9: 719.45] Melba Goldman MD [facility] CPT-4: 64050 12/03/2012 ([id number]) 86415 EST. PATIENT, LEVEL III Diagnosis: Thrush[ICD9: 112.0] Melba Goldman MD [facility] CPT-4: 15057 09/24/2012 ([id number]) 90145 EST. PATIENT, LEVEL IV Diagnosis: ESSENTIAL HYPERTENSION[SNOMED: 68356868] Diagnosis: Thrush[ICD9: 112.0] Diagnosis: Sleep apnea[ICD9: 780.57] Melba Goldman MD [facility] CPT-4: 36908 09/10/2012 ([id number]) 96580 EST. PATIENT, LEVEL IV Diagnosis: Esophageal reflux[ICD9: 530.81] Diagnosis: Hypothyroid[ICD9: 244.9] Diagnosis: JOINT PAIN-MULT JOINTS[ICD9: 719.49] Diagnosis: ALLERGIC RHINITIS[ICD9: 477.9] Melba Goldman MD, [facility] CPT-4: 67725 08/08/2012 ([id number]) 84963 EST. PATIENT, LEVEL IV Diagnosis: Urinary frequency[ICD9: 788.41] Diagnosis: EDEMA[ICD9: 782.3] Diagnosis: HYPOTHYROIDISM[ICD9: 244.9] Diagnosis: Fatigue[ICD9: 780.79] Melba Goldman MD, [facility] CPT-4: 23741 02/15/2012 ([id number]) 80849 EST. PATIENT, LEVEL IV Diagnosis: Abdominal pain[ICD9: 789.00] Diagnosis: Fatigue[ICD9: 780.79] Diagnosis: Nausea[ICD9: 787.02] Melba Goldman MD, [facility] CPT-4: 49046 11/10/2011 64043 EST. PATIENT, LEVEL IV Diagnosis: ESSENTIAL HYPERTENSION[SNOMED: 75900516] Diagnosis: DIARRHEA[ICD9: 787.91] Diagnosis: DEPRESSIVE DISORDER NEC[ICD9: 311] Diagnosis: Irritable bowel disease[ICD9: 564.1] Melba Goldman MD, [facility] CPT- 4: 26642 08/01/2011 27831 EST. PATIENT, LEVEL III Diagnosis: ACUTE SINUSITIS[ICD9: 461.9] Diagnosis: Cough[ICD9: 786.2] Shahida Goldman MD, [facility] CPT-4: 16544 07/14/2011 62506 EST. PATIENT, LEVEL IV Diagnosis: VACCIN FOR INFLUENZA[ICD9: V04.81] Diagnosis: ESSENTIAL HYPERTENSION[SNOMED: 83489261] Diagnosis: GENERALIZED ANXIETY DISEASE[ICD9: 300.02] Diagnosis: SLEEP DISTURBANCES[ICD9: 780.50] Shahida Goldman MD, [facility] CPT- 4: 06252 05/23/2011 79275 EST. PATIENT, LEVEL III Diagnosis: ACUTE SINUSITIS[ICD9: 461.9] Diagnosis: ALLERGIC RHINITIS[ICD9: 477.9] Diagnosis: Cough[ICD9: 786.2] [facility] CPT-4: 09687 05/03/2011 84527 EST. PATIENT, LEVEL IV Diagnosis: ESSENTIAL HYPERTENSION[SNOMED: 65374681] Diagnosis: DEPRESSIVE DISORDER NEC[ICD9: 311] Diagnosis: Fatigue[ICD9: 780.79] [facility] CPT-4: 61249 04/25/2011 Plan of Care Planned Activity Notes [...] call for acute concerns. Hyperlipidemia-check fasting labs Ldqzfzekhgmjmx-nnkjfxv-hwhki labs 10/30/2018 Visit Plan: Hypertension - uncontrolled [...] call for acute concerns. Hyperlipidemia-check fasting labs Xwuzoetgyhxwpp-gvjmtio-jcxsd labs 10/30/2018 [facility]ment[facility] [phone] [phone] ([facility] min) Complex 10/30/2018 Patient Education: Patient Medication Summary Completed 10/30/2018 Visit Plan: Conjunctivitis - rx for eye drops/lube sent electronically to the patient's pharmacy. The patient has been instructed to cleanse affected eye with warm washcloth, then place medication into affected eye four times daily. 10/08/2018 Appointment: [facility] [phone] [phone] (30 min) Complex 10/08/2018 Patient Education: Patient Medication Summary Completed 10/08/2018 Appointment: Isabelle Orozco WPtel: [phone] [facility] (15 min) Moderate 07/30/2018 Visit Plan: [...] acute concerns. 07/16/2018 Appointment: [facility] [phone] [facility] (15 min) Moderate 07/16/2018 Patient Education: [...] of over-medication. 07/10/2018 Appointment: Shahida Manzo WPtel: [phone] (15 min) Moderate 07/10/2018 Patient Education: Patient Medication Summary Completed 07/10/2018 Patient Education: Back Pain Completed 07/10/2018 Visit Plan: Sinusitis - Pt has acute infection - pain in face, maxillary region, Pt informed to use decongestant, RX given to patient, sinus rinses also recommended. Call if symptoms do not show improvement. 05/28/2018 Appointment: Shahida Manzo WPtel: [phone] (30 min) Complex 05/28/2018 Patient Education: [...] acute concerns. 02/07/2018 Appointment: Isabelle Orozco WPtel: [address] [place], [place] [phone] (15 min) Moderate 02/07/2018 Patient Education: Patient [...] less fatigue 01/19/2018 Appointment: Shahida Manzo WPtel: [address] [place], [place] [id number] (15 min) Moderate 01/19/2018 Patient Education: Patient [...] 11/23/2017 App[facility]ment[phone] [facility] - Annual Wellness Visit 11/23/2017 Patient [...] improvement. 09/12/2017 Appointment: Isabelle Orozco WPtel: [phone] [facility] (15 min) Moderate 09/12/2017 Patient Education: [...] 07/25/2017 Appointment: Isabelle Orozco WPtel: [phone] [facility] (30 min) Complex 07/25/2017 Patient Education: [...] 06/27/2017 Appointment: Shahida Manzo WPtel: [phone] [phone] [place] (15 min) Moderate 06/27/2017 Patient [...] improving. 05/08/2017 Appointment: Shahida Manzo WPtel: [phone] [phone] (15 min) Moderate 05/08/2017 Patient Education: [...] improvement. 03/14/2017 Appointment: Shahida Manzo WPtel: [phone] [phone] [place] (15 min) Moderate 03/14/2017 Patient Education: Patient Medication Summary Completed 03/14/2017 Appointment: Shahida Manzo WPtel: [phone] [phone] [place] (15 min) Moderate 02/21/2017 Visit [...] improving. 02/20/2017 Appointment: Isabelle Orozco WPtel: [phone] [facility] [place] (30 min) Complex 02/20/2017 Patient [...] on use 02/06/2017 Appointment: [phone] (15 min) Moderate 02/06/2017 Patient Education: Patient [...] patient. 12/05/2016 Appointment: Melba Goldman WPtel: [phone] [facility] Surgical Procedure 12/05/2016 Patient Education: Patient Medication Summary Completed 12/05/2016 Visit Plan: Sinusitis - Pt has acute infection - pain in face, maxillary region, Pt informed to use decongestant, RX given to patient, sinus rinses also recommended. Call if symptoms do not show improvement. Dysuria- culture urine 11/28/2016 Appointment: Shahida Manzo WPtel: [phone] [id number] (15 min) Moderate 11/28/2016 Patient Education: [...] control. 11/07/2016 Appointment: Isabelle Orozco WPtel: [phone] [facility] [facility] - Annual Wellness Visit 11/07/2016 Patient [...] spray. 08/15/2016 Appointment: [phone] (15 min) Moderate 08/15/2016 Patient Education: [...] use. 06/07/2016 Appointment: Shah[facility]el[phone] (10 min) Simple 06/07/2016 Patient Education: [...] today 03/14/2016 Appointment: Shahida Manzo WPtel: [phone] [phone] (15 min) Moderate 03/14/2016 Patient Education: Patient Medication Summary Completed 03/14/2016 Care Plan: COMPLETE CBC AUTOMATED LOINC : 24507-8 Pending 03/14/2016 Visit Plan: Cellulitis - The patient was instructed in appropriate wound care. The patient was instructed to use the antibiotic ointment as per RX. The patient is to call for any change in symptoms, increase in size of the lesion, increase in pain. 02/22/2016 Appointment: Isabel[facility] Orozco [facility]Ptel[phone] (15 min) Moderate 02/22/2016 Patient Education: [...] dai 11/24/2015 Appointment: [phone] (30 min) Complex 11/24/2015 Patient Education: Patient Medication Summary Completed 11/24/2015 Patient Education: Obesity Completed 11/24/2015 Patient Education: Hypertension Completed 11/24/2015 Patient Education: .Cervicalgia Neck Pain Completed 11/24/2015 Care Plan: Referral Order SNOMED-CT : [id number] Ordered 11/24/2015 Visit Plan: Acute Migraine - [...] to monitor 06/11/2015 Appointment: Shahida Manzo WPtel: [address] [place], [place] [phone] (15 min) Moderate 06/11/2015 Patient Education: Patient [...] OFFICE Sleep apnea-patient needs new CPAP-will contact [facility] Pt reports that she uses [...] OFFICE Sleep apnea-patient needs new CPAP-will contact [facility] patient Pt reports that she uses her [...] OFFICE Sleep apnea-patient needs new CPAP-will contact [facility] 03/19/2015 Appointment: (15 min) Moderate 03/19/2015 [...] Patient Medication Summary Completed 01/07/2015 Patient Education: [facility] - Saving AutoInj - [...] areas dry Exposure to scabies-RX sent to [facility]. 03/07/2014 Appointment: Melba Goldman WPtel: [facility] [place] rash 03/07/2014 Patient Education: Patient Medication [...] change in blood pressure readings at home. Nehaqzg-gxpnxifoubk-rkogagkt duragesic patch-appt with Dr Ortiz for pain management 11/21/2013 Appointment: Shahida Manzo WPtel: [phone] [place] Follow up 11/21/2013 Patient Education: Patient Medication Summary Completed 11/21/2013 Patient Education: Hypertension Completed 11/21/2013 Patient Education: .Cervicalgia Neck Pain Completed 11/21/2013 Appointment: Melba Goldman WPtel: [phone] [facility] Other 11/19/2013 Appointment: Melba Goldman WPtel: [facility] Follow up 11/06/2013 Appointment: Melba Goldman WPtel: [address] [place] [address] Lab Draw 10/15/2013 Patient Education: Patient Medication [...] AT BEDTIME 09/24/2013 Appointment: Shahida Manzo WPtel: [address] [place], [place] [id number] [place] [address] Other 09/24/2013 Patient Education: Patient Medication Summary Completed 09/24/2013 Visit Plan: Paronychia/Cellulitis - continue with oral antibiotics as previously directed, return to clinic as previously directed, call for acute change in symptoms, worsening redness, warmth, discharge. 09/19/2013 Appointment: Melba Goldman WPtel: [address] [place] [address] Other 09/19/2013 Patient Education: Patient Medication Summary Completed 09/19/2013 Visit Plan: Conjunctivitis - rx for eye drops/lube sent electronically to the patient's pharmacy. The patient has been instructed to cleanse affected eye with warm washcloth, then place medication into affected eye four times daily. Thrush-refill nystatin-call if symptoms do not resolve 08/05/2013 Appointment: Shahida Manzo WPtel: [address] [place], [place] [phone] Sick 08/05/2013 Patient Education: Patient Medication Summary [...] improvement. 06/03/2013 Appointment: Melba Goldman WPtel: [address] [place], [place] [address] Follow up 06/03/2013 Patient Education: Patient Medication Summary Completed 06/03/2013 Patient Education: Hypertension Completed 06/03/2013 Appointment: Melba Goldman WPtel: [address] [place] [address] [place] Nurse Visit 05/13/2013 Patient Education: Patient [...] control. 05/07/2013 Appointment: Melba Goldman WPtel: [phone] [facility] Follow up 05/07/2013 Patient Education: Patient Medication Summary Completed 05/07/2013 Patient Education: Hypertension Completed 05/07/2013 Patient Education: Patient Medication Summary Completed 04/30/2013 Patient Education: Hypertension Completed 04/30/2013 Visit Plan: Arthritis- occasionally uncontrolled symptoms- recommend pt to take antiinflammatory as directed for pain control. Use tylenol for break through pain symptoms. 12/03/2012 Appointment: [facility] Goldman [facility]el[phone] Follow up 12/03/2012 Patient Education: Patient Medication [...] not resolve 09/24/2012 Appointment: Shah[facility]Ptel: [phone] Sick 09/24/2012 Patient Education: Patient Medication [...] diflucan 09/10/2012 Appointment: Melba Goldman [facility]Ptel: [phone] Follow up 09/10/2012 Patient Education: Patient Medication [...] pain symptoms. 08/08/2012 Appointment: Shah[facility]Ptel: [phone] Follow up 08/08/2012 Patient Education: Patient Medication Summary Completed 08/08/2012 Patient Education: Patient Medication Summary Completed 08/07/2012 Patient Education: Hypertension Completed 08/07/2012 Appointment: Melba Goldman WPtel: [facility] Lab Draw 02/16/2012 Patient Education: Patient Medication [...] Needs labs. 02/15/2012 Appointment: Melba Goldman WPtel: [address] [place], [place] [id number] Other 02/15/2012 Patient Education: Patient Medication Summary Completed 02/15/2012 Visit Plan: Abdominal pain - ultrasound tomorrow AM nothing to eat before the ultrasound from 11pm tonight bland diet. Nausea - worse with fatty foods, recommended low fat/bland diet, call if symptoms worsening. 11/10/2011 Appointment: Melba Goldman WPtel: [address] [place], [place] [id number] Other 11/10/2011 Patient Education: Patient Medication Summary [...] [facility]el[phone] Other 08/01/2011 Patient Education: Patient Medication Summary Completed 08/01/2011 Patient Education: High Blood Pressure: Essential Hypertension Completed 08/01/2011 Visit Plan: Sinusitis - Pt has acute infection - pain in face, maxillary region, Pt informed to use decongestant, RX given to patient, sinus rinses also recommended. Call if symptoms do not show improvement. Cough- kishore zurita 07/14/2011 Appointment: Shahida Manzo [facility]Ptel: [phone] [place] Other 07/14/2011 Patient Education: Patient [...] the office. 05/23/2011 Appointment: Shahida Manzo WPtel: [phone] [facility] [place] [address] Other 05/23/2011 Patient Education: Patient Medication Summary [...] Shahida Manzo WPtel: [phone] Other 05/03/2011 Patient Education: Patient Medication [...] symptoms. 04/25/2011 Appointment: Shahida Manzo WPtel: [address] [place], [place] [phone] Other 04/25/2011 Patient Education: Patient Medication Summary [...] OFFICE Sleep apnea-patient needs new CPAP-[facility] Pt reports that she uses [...] OFFICE Sleep apnea-patient needs new CPAP-will contact [facility] Pt reports that she uses [...] OFFICE Sleep apnea-patient needs new CPAP-will contact [facility] LOSARTAN 50MG DAILY MONITOR BLOOD [...] call for acute concerns. Hyperlipidemia-check fasting labs Wfawykgnuhdwkc-atjhfls-zojre labs LOSARTAN 50MG DAILY MONITOR BLOOD PRESSURE [...] call for acute concerns. Hyperlipidemia-check fasting labs Fehlfbfbxqypxi-eimlnoy-zxmqf labs . Sinusitis - Pt has acute [...] not show improvement. Gentamicin nasal spray to [facility] Increase prilosec to twice daily . [...] areas dry Exposure to scabies-RX sent to [facility]. rocephin/kenalog . Sinusitis - Pt has [...] change in blood pressure readings at home. Xtdlznr-sivpicqnjqh-aoplxejs duragesic patch-appt with Dr Ortiz for pain [...]
--- OUTSIDE RECORDS SUMMARY | 2019-03-08 15:35 | XMS REPORT | CCD ---
Author Author [facility] Address [address] [place] [address] Phone Care Team Providers Care Engagement Executive Name Role Phone PP Unavailable CCM Unavailable Summary Purpose Interface Exchange Insurance Providers Payer name Policy type / Coverage type Covered republican ID Effective Begin Date Effective End Date [employer] Medicare Part B [id number] Unknown Family history Son Diagnosis Age At Onset Crohn's disease Unknown Brother Diagnosis Age At Onset Cardiovascular disease Unknown Mother Diagnosis Age At Onset Hypertension Unknown Father Diagnosis Age At Onset Cardiovascular disease Unknown Social History Social History Element Codes Description Effective Dates Marital status Unknown 04/22/2011 Number of children Unknown 3 1 son -Crohns 04/22/[address]: 293568752 Nonsmoker 04/22/2011 Allergies, Adverse Reactions, Alerts Substance [...] Start Date Stop Date Status Fill Instructions Synthroid 112 mcg tablet RxNorm: 008322 1 Tablet(s) PO daily 11/01/2018 04/29/2019 Active Brand name only! Dosage change! Synthroid 112 mcg tablet RxNorm: 788127 1 Tablet(s) PO daily 11/01/2018 10/31/2018 Inactive Brand name only! Dosage change! losartan 50 mg tablet RxNorm: 236500 1 Tablet(s) PO daily 10/30/2018 04/27/2019 Active Tamiflu 75 mg capsule RxNorm: 442952 1 Capsule(s) PO daily 10/30/2018 11/08/2018 Active Synthroid 100 mcg tablet RxNorm: 680807 1 Tablet(s) PO daily 10/30/2018 10/31/2018 Inactive Brand name only! Lexapro 20 mg tablet RxNorm: 241950 TAKE ONE AND ONE-HALF TABLET BY MOUTH DAILY 10/23/2018 10/17/2019 Active alprazolam 0.25 mg tablet RxNorm: 460073 1 Tablet(s) PO TID as needed 10/10/2018 01/07/2019 Active polymyxin B sulfate 10,000 unit-trimethoprim 1 mg/mL eye drops RxNorm: 664343 2 Drop(s) ophthalmic (eye) QID 10/08/2018 10/14/2018 Inactive hydrocodone 10 mg-acetaminophen 325 mg tablet RxNorm: 512095 Tablet(s) PO TAKE ONE TO TWO TABLETS BY MOUTH EVERY 6 HOURS NEEDED FOR PAIN 09/11/2018 09/25/2018 Inactive piroxicam 20 mg capsule RxNorm: 873689 TAKE ONE CAPSULE BY MOUTH DAILY 08/09/2018 01/05/2019 Active trazodone 50 mg tablet RxNorm: 216328 TAKE ONE AND ONE-HALF (1 1/2) TABLET BY MOUTH AT BEDTIME. MAY INCREASE TO 2 TABLETS AT BEDTIME NEEDED 08/02/2018 11/19/2018 Active Nexium 40 mg capsule,delayed release RxNorm: 087884 TAKE ONE CAPSULE BY MOUTH TWICE A DAY 07/23/2018 11/19/2018 Active Bystolic 5 mg tablet RxNorm: 555604 1 Tablet(s) PO daily to take with 10 mg daily to equal 15mg daily 07/17/2018 10/29/2018 Inactive alprazolam 0.25 mg tablet RxNorm: 152858 1 Tablet(s) PO TID as needed 07/16/2018 10/29/2018 Inactive hydrocodone 10 mg-acetaminophen 325 mg tablet RxNorm: 320239 Tablet(s) PO TAKE ONE TO TWO TABLETS BY MOUTH EVERY 6 HOURS NEEDED FOR PAIN 07/10/2018 07/24/2018 Inactive prednisone 20 mg tablet RxNorm: 569782 1 Tablet(s) PO BID 07/10/2018 07/14/2018 Inactive Phenergan with Codeine Syrup RxNorm: 5-10 Milliliter(s) PO Q6 PRN 06/28/2018 No Stop Date Active prednisone 20 mg tablet RxNorm: 636461 2 Tablet(s) PO daily 05/31/2018 06/04/2018 Inactive prednisone 20 mg tablet RxNorm: 066018 2 Tablet(s) PO daily 05/31/2018 05/30/2018 Inactive ceftriaxone 500 mg solution for injection RxNorm: 6653199 Inj 05/28/2018 05/28/2018 Inactive doxycycline hyclate 100 mg tablet RxNorm: 9285984 1 Tablet(s) PO BID 05/28/2018 06/06/2018 Inactive Kenalog 40 mg/mL suspension for injection RxNorm: 8333312 Milliliter(s) Inj 05/28/2018 05/28/2018 Inactive hydrocodone 10 mg-acetaminophen 325 mg tablet RxNorm: 574009 Tablet(s) PO TAKE ONE TO TWO TABLETS BY MOUTH EVERY 6 HOURS NEEDED FOR PAIN 05/09/2018 05/23/2018 Inactive alprazolam 0.25 mg tablet RxNorm: 604359 1 Tablet(s) PO daily as needed 04/25/2018 07/15/2018 Inactive Bystolic 10 mg tablet RxNorm: 978293 TAKE ONE TABLET BY MOUTH DAILY 04/16/2018 09/12/2018 Inactive hydrocodone 10 mg-acetaminophen 325 mg tablet RxNorm: 243973 Tablet(s) PO TAKE ONE TO TWO TABLETS BY MOUTH EVERY 6 HOURS NEEDED FOR PAIN 03/06/2018 03/20/2018 Inactive trazodone 50 mg tablet RxNorm: 894377 TAKE ONE AND ONE-HALF (1 1/2) TABLET BY MOUTH AT BEDTIME. MAY INCREASE TO 2 TABLETS AT BEDTIME NEEDED 02/23/2018 06/12/2018 Inactive mupirocin 2 % topical ointment RxNorm: 319646 1 TOP BID 02/09/2018 05/27/2018 Inactive Zofran 4 mg tablet RxNorm: 352690 1 Tablet(s) PO TID as needed 02/08/2018 No Stop Date Active Keflex 500 mg capsule RxNorm: 333545 1 Capsule(s) PO TID 02/07/2018 02/13/2018 Inactive alprazolam 0.25 mg tablet RxNorm: 093784 1 Tablet(s) PO daily as needed 01/24/2018 07/09/2018 Inactive hydrocodone 10 mg-acetaminophen 325 mg tablet RxNorm: 243369 Tablet(s) PO TAKE ONE TO TWO TABLETS BY MOUTH EVERY 6 HOURS NEEDED FOR PAIN 01/19/2018 02/02/2018 Inactive hydrochlorothiazide 25 mg tablet RxNorm: 828005 Tablet(s) TAKE ONE TABLET BY MOUTH DAILY 01/19/2018 01/19/2018 Inactive Kenalog 40 mg/mL suspension for injection RxNorm: 5121379 1 Milliliter(s) Inj 01/19/2018 01/19/2018 Inactive piroxicam 20 mg capsule RxNorm: 906981 1 Capsule(s) PO daily 01/19/2018 07/17/2018 Inactive D/C ORDER FOR HCTZ ceftriaxone 500 mg solution for injection RxNorm: 4681413 500 Milligram(s) Inj 01/19/2018 01/19/2018 Inactive Nexium 40 mg capsule,delayed release RxNorm: 801443 TAKE ONE CAPSULE BY MOUTH TWICE A DAY 01/18/2018 04/17/2018 Inactive Nexium 40 mg capsule,delayed release RxNorm: 848856 TAKE ONE CAPSULE BY MOUTH TWICE A DAY 01/15/2018 04/14/2018 Inactive ciprofloxacin 0.3 % eye drops RxNorm: 459272 2 Drop(s) ophthalmic (eye) Q2H while awake x 2 days, then Q4H x 5 days 11/23/2017 05/27/2018 Inactive Keflex 500 mg capsule RxNorm: 958178 1 Capsule(s) PO TID 11/23/2017 11/29/2017 Inactive hydrocodone 10 mg-acetaminophen 325 mg tablet RxNorm: 498007 Tablet(s) PO TAKE ONE TO TWO TABLETS BY MOUTH EVERY 6 HOURS NEEDED FOR PAIN 10/30/2017 11/13/2017 Inactive Augmentin 500 mg-125 mg tablet RxNorm: 137264 1 Tablet(s) PO TID 10/27/2017 11/05/2017 Inactive alprazolam 0.25 mg tablet RxNorm: 029640 1 Tablet(s) PO daily as needed 10/26/2017 04/24/2018 Inactive trazodone 50 mg tablet RxNorm: 808998 TAKE ONE AND ONE-HALF (1 1/2) TABLET BY MOUTH AT BEDTIME. MAY INCREASE TO 2 TABLETS AT BEDTIME NEEDED 09/25/2017 02/03/2018 Inactive Lexapro 20 mg tablet RxNorm: 344490 TAKE ONE AND ONE-HALF TABLET BY MOUTH DAILY 09/15/2017 09/09/2018 Inactive Flagyl 500 mg tablet RxNorm: 718248 1 Tablet(s) PO TID 09/12/2017 09/21/2017 Inactive promethazine 25 mg tablet RxNorm: 676995 1 Tablet(s) PO TID as needed nausea and vomitting THIS WILL MAKE YOU SLEEPY 09/12/2017 11/08/2017 Inactive Keflex 500 mg capsule RxNorm: 489013 1 Capsule(s) PO QID 08/25/2017 08/31/2017 Inactive [SAVINGS FOR UNINSURED PATIENTS -- BIN:[id number], PCN: [id number], Group: [id number], ID# [id number], Process claim through [employer], for questions: . THIS IS NOT INSURANCE.] alprazolam 0.25 mg tablet RxNorm: 030641 1 Tablet(s) PO daily as needed 07/31/2017 04/24/2018 Inactive prednisone 20 mg tablet RxNorm: 334708 2 Tablet(s) PO daily 07/25/2017 07/29/2017 Inactive Augmentin 500 mg-125 mg tablet RxNorm: 302498 1 Tablet(s) PO TID 07/25/2017 08/03/2017 Inactive trazodone 50 mg tablet RxNorm: 121122 TAKE ONE AND ONE-HALF (1 1/2) TABLET BY MOUTH AT BEDTIME. MAY INCREASE TO 2 TABLETS AT BEDTIME NEEDED 06/30/2017 09/03/2017 Inactive Bystolic 10 mg tablet RxNorm: 351303 TAKE ONE TABLET BY MOUTH DAILY 06/30/2017 2017 Inactive hydrochlorothiazide 25 mg tablet RxNorm: 807777 TAKE ONE TABLET BY MOUTH DAILY 06/30/2017 01/18/2018 Inactive Flagyl 500 mg tablet RxNorm: 174091 1 Tablet(s) PO TID 06/27/2017 07/03/2017 Inactive Phenergan with Codeine Syrup RxNorm: 5-10 Milliliter(s) PO Q6 PRN 06/27/2017 11/15/2017 Inactive Levaquin 500 mg tablet RxNorm: 037813 1 Tablet(s) PO daily 06/27/2017 07/03/2017 Inactive Kenalog 40 mg/mL suspension for injection RxNorm: 5467735 1 Milliliter(s) Inj 06/27/2017 06/27/2017 Inactive Nexium 40 mg capsule,delayed release RxNorm: 406491 1 Capsule(s) PO BID TAKE ONE CAPSULE BY MOUTH BID 05/22/2017 09/18/2017 Inactive Nexium 40 mg capsule,delayed release RxNorm: 453613 1 Capsule(s) PO BID TAKE ONE CAPSULE BY MOUTH BID 05/22/2017 05/21/2017 Inactive hydrocodone 10 mg-acetaminophen 325 mg tablet RxNorm: 221665 Tablet(s) PO TAKE ONE TO TWO TABLETS BY MOUTH EVERY 6 HOURS NEEDED FOR PAIN 05/17/2017 06/15/2017 Inactive Nexium 40 mg capsule,delayed release RxNorm: 565837 Capsule(s) TAKE ONE CAPSULE BY MOUTH BID 05/17/2017 05/21/2017 Inactive alprazolam 0.25 mg tablet RxNorm: 381057 1 Tablet(s) PO daily as needed 05/03/2017 07/01/2017 Inactive Levaquin 500 mg tablet RxNorm: 705862 1 Tablet(s) PO daily 04/20/2017 04/26/2017 Inactive clotrimazole 1 % topical cream RxNorm: 518981 1 Application TOP BID 04/20/2017 11/07/2017 Inactive Kenalog 40 mg/mL suspension for injection RxNorm: 8438700 Milliliter(s) Inj 04/20/2017 04/20/2017 Inactive nystatin 100,000 unit/gram topical powder RxNorm: 079993 1 Gram(s) APPLY TOPICALLY TWO TIMES A DAY 04/10/2017 07/08/2017 Inactive trazodone 50 mg tablet RxNorm: 546418 TAKE ONE AND ONE-HALF (1 1/2) TABLET BY MOUTH AT BEDTIME. MAY INCREASE TO 2 TABLETS AT BEDTIME NEEDED 03/28/2017 06/23/2017 Inactive Augmentin 875 mg-125 mg tablet RxNorm: 403207 1 Tablet(s) PO BID 03/14/2017 03/20/2017 Inactive Kenalog 40 mg/mL suspension for injection RxNorm: 5154990 1 Milliliter(s) Inj 03/14/2017 03/14/2017 Inactive Lexapro 20 mg tablet RxNorm: 080964 1.5 Tablet(s) PO daily 03/08/2017 03/07/2017 Inactive Lexapro 20 mg tablet RxNorm: 098522 1.5 Tablet(s) PO daily 03/08/2017 07/05/2017 Inactive alprazolam 0.25 mg tablet RxNorm: 336311 1 Tablet(s) PO daily as needed 02/23/2017 04/23/2017 Inactive (Response to an electronic controlled substance refill request - RxReferenceNumber: [id number]) Flagyl 500 mg tablet RxNorm: 225173 1 Tablet(s) PO TID 02/20/2017 03/01/2017 Inactive promethazine 25 mg tablet RxNorm: 729724 1 Tablet(s) PO TID as needed nausea 02/20/2017 03/01/2017 Inactive Cipro 500 mg tablet RxNorm: 557326 1 Tablet(s) PO BID 02/20/2017 03/01/2017 Inactive Flagyl 500 mg tablet RxNorm: 651556 1 Tablet(s) PO TID 02/09/2017 02/15/2017 Inactive Trintellix 10 mg tablet RxNorm: 8596872 1 Tablet(s) PO QAM 02/06/2017 03/07/2017 Inactive Efudex 5 % topical cream RxNorm: 404869 1 Application TOP BID use on skin spot on nose 02/06/2017 02/15/2017 Inactive Bystolic 10 mg tablet RxNorm: 349973 TAKE ONE TABLET BY MOUTH DAILY 02/03/2017 06/02/2017 Inactive Imitrex 50 mg tablet RxNorm: 800095 TAKE ONE TABLET BY MOUTH EVERY 8 HOURS NEEDED MAY REPEAT IN 1 HOUR OF INITIAL DOSE. DISCONTINUE FIORICET 12/22/2016 02/19/2017 Inactive Nexium 40 mg capsule,delayed release RxNorm: 923424 TAKE ONE CAPSULE BY MOUTH EVERY DAY 12/21/2016 05/16/2017 Inactive Lexapro 20 mg tablet RxNorm: 369311 Tablet(s) TAKE ONE TABLET BY MOUTH DAILY 12/05/2016 02/05/2017 Inactive Augmentin 875 mg-125 mg tablet RxNorm: 171139 1 Tablet(s) PO BID 11/28/2016 12/04/2016 Inactive ceftriaxone 500 mg solution for injection RxNorm: 6120248 1 Milliliter(s) Inj 11/28/2016 11/28/2016 Inactive hydrocodone 10 mg-acetaminophen 325 mg tablet RxNorm: 196989 Tablet(s) PO TAKE ONE TO TWO TABLETS BY MOUTH EVERY 6 HOURS NEEDED FOR PAIN 11/28/2016 05/16/2017 Inactive (Appended: Controlled substance eRx refill - RxReferenceNumber: [id number]) prednisone 20 mg tablet RxNorm: 375659 2 Tablet(s) PO daily 11/28/2016 12/02/2016 Inactive trazodone 50 mg tablet RxNorm: 081451 Tablet(s) TAKE 1 AND 1/2 TABLETS EVERY NIGHT AT BEDTIME , MAY INCREASE TO 2 TABLETS AT BEDTIME NEEDED 11/21/2016 11/20/2016 Inactive Synthroid 100 mcg tablet RxNorm: 438166 1 Tablet(s) PO daily 11/21/2016 05/19/2017 Inactive Brand name only! trazodone 50 mg tablet RxNorm: 586954 TAKE 1 AND 1/2 TABLETS EVERY NIGHT AT BEDTIME , MAY INCREASE TO 2 TABLETS AT BEDTIME NEEDED 11/21/2016 08/01/2018 Inactive Synthroid 100 mcg tablet RxNorm: 133823 1 Tablet(s) PO daily TAKE ONE TABLET BY MOUTH DAILY 11/08/2016 11/20/2016 Inactive ceftriaxone 500 mg solution for injection RxNorm: 8778415 Inj 11/07/2016 11/07/2016 Inactive Kenalog 40 mg/mL suspension for injection RxNorm: 9830615 Milliliter(s) Inj 11/07/2016 11/07/2016 Inactive Xanax 0.25 mg tablet RxNorm: 540719 1 Tablet(s) PO daily as needed 10/31/2016 05/02/2017 Inactive alprazolam 0.25 mg tablet RxNorm: 459747 1 Tablet(s) PO daily as needed 10/21/2016 12/18/2016 Inactive (Response to an electronic controlled substance refill request - RxReferenceNumber: [id number]) hydrochlorothiazide 25 mg tablet RxNorm: 913172 TAKE ONE TABLET BY MOUTH DAILY 10/11/2016 04/08/2017 Inactive Xanax 0.25 mg tablet RxNorm: 233042 1 Tablet(s) PO daily as needed 08/23/2016 10/19/2016 Inactive Flonase Allergy Relief 50 mcg/actuation nasal spray,suspension RxNorm: 2284329 1 [place] NASAL daily 08/15/2016 No Stop Date Active amoxicillin 500 mg capsule RxNorm: 111336 1 Capsule(s) PO TID 08/15/2016 08/24/2016 Inactive Bystolic 10 mg tablet RxNorm: 210622 TAKE ONE TABLET BY MOUTH DAILY 08/01/2016 12/28/2016 Inactive trazodone 50 mg tablet RxNorm: 881812 TAKE 1 AND 1/2 TABLETS EVERY NIGHT AT BEDTIME , MAY INCREASE TO 2 TABLETS AT BEDTIME NEEDED 07/25/2016 11/11/2016 Inactive alprazolam 0.25 mg tablet RxNorm: 023131 1 Tablet(s) PO daily as needed 07/25/2016 08/22/2016 Inactive (Response to an electronic controlled substance refill request - RxReferenceNumber: [id number]) Imitrex 50 mg tablet RxNorm: 475827 1 Tablet(s) PO Q8 as needed may repeat x1 dose in 1 hour of inital dose. 07/13/2016 No Stop Date Active Lexapro 20 mg tablet RxNorm: 057721 TAKE 1/2 TABLET BY MOUTH DAILY FOR 10 DAYS, THEN TAKE ONE TABLET BY MOUTH DAILY 06/27/2016 11/23/2016 Inactive Synthroid 100 mcg tablet RxNorm: 699932 TAKE ONE TABLET BY MOUTH DAILY 06/20/2016 11/07/2016 Inactive Augmentin 500 mg-125 mg tablet RxNorm: 426796 1 Tablet(s) PO TID 06/07/2016 06/13/2016 Inactive hydrocodone 10 mg-acetaminophen 325 mg tablet RxNorm: 902213 Tablet(s) PO TAKE ONE TO TWO TABLETS BY MOUTH EVERY 6 HOURS NEEDED FOR PAIN 06/07/2016 11/27/2016 Inactive (Appended: Controlled substance eRx refill - RxReferenceNumber: [id number]) hydrochlorothiazide 25 mg tablet RxNorm: 639016 TAKE ONE TABLET BY MOUTH DAILY 03/14/2016 09/09/2016 Inactive Edarbi 40 mg tablet RxNorm: 1831004 1 Tablet(s) PO daily 03/14/2016 06/06/2016 Inactive trazodone 50 mg tablet RxNorm: 192311 Tablet(s) TAKE 1 AND 1/2 TABLET AT BEDTIME. MAY INCREASE TO 2 TABLETS IF NECESSARY 02/25/2016 07/05/2016 Inactive Imitrex 50 mg tablet RxNorm: 784508 1 Tablet(s) PO Q8 as needed may repeat x1 dose in 1 hour of inital dose. 02/25/2016 07/12/2016 Inactive dc fioricet Xanax 0.25 mg tablet RxNorm: 955444 1 Tablet(s) PO daily as needed 02/24/2016 07/21/2016 Inactive mupirocin 2 % topical ointment RxNorm: 439898 1 TOP BID 02/22/2016 11/08/2017 Inactive Bactrim DS 800 mg-160 mg tablet RxNorm: 434349 1 Tablet(s) PO BID 02/22/2016 03/02/2016 Inactive Fioricet 50 mg-325 mg-40 mg tablet RxNorm: 474777 Tablet(s) TAKE ONE TABLET BY MOUTH EVERY 4 HOURS NEEDED FOR headache 02/12/2016 02/24/2016 Inactive (Response to an electronic controlled substance refill request - RxReferenceNumber: [id number]) Fioricet 50 mg-325 mg-40 mg tablet RxNorm: 375442 Tablet(s) TAKE ONE TABLET BY MOUTH EVERY 4 HOURS NEEDED FOR headache 02/12/2016 02/11/2016 Inactive (Response to an electronic controlled substance refill request - RxReferenceNumber: [id number]) Nexium 40 mg capsule,delayed release RxNorm: 976613 TAKE ONE CAPSULE BY MOUTH EVERY DAY 02/01/2016 10/27/2016 Inactive Bystolic 10 mg tablet RxNorm: 069304 Tablet(s) TAKE ONE TABLET BY MOUTH DAILY 01/06/2016 07/03/2016 Inactive Xanax 0.25 mg tablet RxNorm: 161015 1 Tablet(s) PO daily as needed 12/28/2015 02/23/2016 Inactive Levaquin 500 mg tablet RxNorm: 267794 1 Tablet(s) PO daily take a probiotic daily 12/14/2015 02/11/2016 Inactive Levaquin 500 mg tablet RxNorm: 256351 1 Tablet(s) PO daily take a probiotic daily 12/14/2015 12/13/2015 Inactive prednisone 20 mg tablet RxNorm: 620594 1 Tablet(s) PO BID 12/07/2015 12/13/2015 Inactive Augmentin 875 mg-125 mg tablet RxNorm: 253578 1 Tablet(s) PO BID 12/07/2015 12/13/2015 Inactive ceftriaxone 500 mg solution for injection RxNorm: 8509094 Inj 12/07/2015 12/07/2015 Inactive Phenergan with Codeine Syrup RxNorm: 5-10 Milliliter(s) PO Q6 PRN 12/07/2015 06/26/2017 Inactive alprazolam 0.25 mg tablet RxNorm: 062962 1 Tablet(s) PO daily as needed 11/27/2015 12/25/2015 Inactive (Response to an electronic controlled substance refill request - RxReferenceNumber: [id number]) trazodone 50 mg tablet RxNorm: 379232 TAKE 1 AND 1/2 TABLET AT BEDTIME FOR 2 WEEKS, MAY INCREASE TO 2 TABLETS IF NECESSARY AFTER THAT 11/26/2015 02/24/2016 Inactive ceftriaxone 500 mg solution for injection RxNorm: 1929415 Milliliter(s) Inj 11/24/2015 11/24/2015 Inactive prednisone 10 mg tablet RxNorm: 087814 3 Tablet(s) PO daily 11/24/2015 11/28/2015 Inactive cefdinir 300 mg capsule RxNorm: 954667 1 Capsule(s) PO BID 11/24/2015 11/30/2015 Inactive Kenalog 40 mg/mL suspension for injection RxNorm: 9924306 1 Milliliter(s) Inj 11/24/2015 11/24/2015 Inactive Lexapro 20 mg tablet RxNorm: 277705 TAKE 1/2 TABLET BY MOUTH DAILY FOR 10 DAYS, THEN TAKE ONE TABLET BY MOUTH DAILY 11/23/2015 05/20/2016 Inactive Lipitor 10 mg tablet RxNorm: 302968 Tablet(s) TAKE ONE TABLET BY MOUTH EVERY DAY 10/26/2015 11/06/2016 Inactive Norvasc 10 mg tablet RxNorm: 060402 Tablet(s) PO TAKE ONE TABLET BY MOUTH EVERY DAY 10/26/2015 01/18/2018 Inactive hydrochlorothiazide 25 mg tablet RxNorm: 256299 TAKE ONE TABLET BY MOUTH DAILY 10/20/2015 01/17/2016 Inactive promethazine 25 mg/mL injection solution RxNorm: 460340 Milliliter(s) Inj 08/27/2015 08/27/2015 Inactive ketorolac 60 mg/2 mL intramuscular solution RxNorm: 863933 Milliliter(s) IM 08/27/2015 08/27/2015 Inactive alprazolam 0.25 mg tablet RxNorm: 404160 1 Tablet(s) PO daily as needed 08/27/2015 10/25/2017 Inactive (Response to an electronic controlled substance refill request - RxReferenceNumber: [id number]) Lexapro 20 mg tablet RxNorm: 105896 TAKE 1/2 TABLET BY MOUTH DAILY FOR 10 DAYS, THEN TAKE ONE TABLET BY MOUTH DAILY 08/13/2015 11/10/2015 Inactive Flonase 50 mcg/actuation nasal spray,suspension RxNorm: 533752 PLACE 1 SPRAY IN EACH NOSTRIL DAILY 08/13/2015 02/08/2016 Inactive Augmentin 500 mg-125 mg tablet RxNorm: 070969 1 Tablet(s) PO TID 08/10/2015 08/16/2015 Inactive Kenalog 40 mg/mL suspension for injection RxNorm: 3354463 Milliliter(s) Inj 08/10/2015 08/10/2015 Inactive ceftriaxone 500 mg solution for injection RxNorm: 0618976 Inj 08/10/2015 08/10/2015 Inactive nystatin 100,000 unit/mL oral suspension RxNorm: 743654 4 Milliliter(s) PO QID 08/10/2015 08/16/2015 Inactive trazodone 50 mg tablet RxNorm: 713323 TAKE 1 AND 1/2 TABLET AT BEDTIME FOR 2 WEEKS, MAY INCREASE TO 2 TABLETS IF NECESSARY AFTER THAT 07/31/2015 11/25/2015 Inactive ceftriaxone 500 mg solution for injection RxNorm: 1351794 1 Milliliter(s) Inj 07/28/2015 07/28/2015 Inactive Bactrim DS 800 mg-160 mg tablet RxNorm: 827454 1 Tablet(s) PO BID 07/28/2015 08/06/2015 Inactive Bactroban 2 % topical ointment RxNorm: 620509 1 Application TOP BID 07/28/2015 08/06/2015 Inactive Diflucan 150 mg tablet RxNorm: 308564 1 Tablet(s) PO daily 06/11/2015 06/17/2015 Inactive clotrimazole 1 % topical cream RxNorm: 322069 1 Application TOP BID 06/11/2015 07/10/2015 Inactive Bystolic 10 mg tablet RxNorm: 837835 TAKE ONE TABLET BY MOUTH DAILY 06/08/2015 12/04/2015 Inactive alprazolam 0.25 mg tablet RxNorm: 711019 1 Tablet(s) PO daily as needed 06/01/2015 08/25/2015 Inactive (Response to an electronic controlled substance refill request - RxReferenceNumber: [id number]) Fioricet 50 mg-325 mg-40 mg tablet RxNorm: 581879 Tablet(s) TAKE ONE TABLET BY MOUTH EVERY 4 HOURS NEEDED FOR headache 05/28/2015 06/08/2015 Inactive (Response to an electronic controlled substance refill request - RxReferenceNumber: [id number]) trazodone 50 mg tablet RxNorm: 506400 TAKE 1 AND 1/2 TABLET AT BEDTIME FOR 2 WEEKS, MAY INCREASE TO 2 TABLETS IF NECESSARY AFTER THAT 05/25/2015 08/22/2015 Inactive trazodone 50 mg tablet RxNorm: 154627 TAKE 1 AND 1/2 TABLET AT BEDTIME FOR 2 WEEKS, MAY INCREASE TO 2 TABLETS IF NECESSARY AFTER THAT 05/25/2015 05/24/2015 Inactive Synthroid 100 mcg tablet RxNorm: 222271 TAKE ONE TABLET BY MOUTH DAILY 04/23/2015 01/17/2016 Inactive Lipitor 10 mg tablet RxNorm: 823391 TAKE ONE TABLET BY MOUTH EVERY DAY 04/23/2015 10/25/2015 Inactive Kenalog 40 mg/mL suspension for injection RxNorm: 6414442 Milliliter(s) Inj 03/19/2015 03/19/2015 Inactive Lexapro 20 mg tablet RxNorm: 509046 1 Tablet(s) PO daily 03/19/2015 07/16/2015 Inactive 1/2 tab daily x 10 days then 1 tab daily hydrocodone 10 mg-acetaminophen 325 mg tablet RxNorm: 898295 Tablet(s) PO TAKE ONE TO TWO TABLETS BY MOUTH EVERY 6 HOURS NEEDED FOR PAIN 03/19/2015 06/06/2016 Inactive (Appended: Controlled substance eRx refill - RxReferenceNumber: [id number]) Carafate 1 gram tablet RxNorm: 948450 1 Tablet(s) PO AC & HS 03/19/2015 06/16/2015 Inactive dissolve in water and take as a slurry hydrochlorothiazide 25 mg tablet RxNorm: 338846 1 Tablet(s) PO daily 03/12/2015 09/07/2015 Inactive Nexium 40 mg capsule,delayed release RxNorm: 403452 TAKE ONE CAPSULE BY MOUTH EVERY DAY 02/26/2015 12/22/2015 Inactive Cymbalta 60 mg capsule,delayed release RxNorm: 369702 TAKE ONE CAPSULE BY MOUTH TWICE A DAY 02/23/2015 03/18/2015 Inactive alprazolam 0.25 mg tablet RxNorm: 048248 1 Tablet(s) PO daily as needed 02/11/2015 05/10/2015 Inactive (Response to an electronic controlled substance refill request - RxReferenceNumber: [id number]) trazodone 50 mg tablet RxNorm: 883094 TAKE 1 AND 1/2 TABLET AT BEDTIME FOR 2 WEEKS, MAY INCREASE TO 2 TABLETS IF NECESSARY AFTER THAT 01/27/2015 05/24/2015 Inactive Augmentin 500 mg-125 mg tablet RxNorm: 040052 1 Tablet(s) PO TID 01/07/2015 01/13/2015 Inactive gentamicin 0.3 % eye drops RxNorm: 995981 3 Drop(s) OPH QID 01/07/2015 01/13/2015 Inactive [AttnRPh: Saving apply/adjudicate RxGRP:[id number] RxBIN:[id number] RxPCN: ID#:[id number]] scopolamine 1.5 mg transdermal 72 hour patch RxNorm: 137699 1 Patch TD q72 hours 01/07/2015 11/23/2015 Inactive Synthroid 100 mcg tablet RxNorm: 364169 TAKE ONE TABLET BY MOUTH ONCE A DAY 01/06/2015 04/22/2015 Inactive nystatin 100,000 unit/gram topical powder RxNorm: 351996 APPLY TOPICALLY TWO TIMES A DAY 12/18/2014 03/17/2015 Inactive alprazolam 0.25 mg tablet RxNorm: 234254 TAKE ONE TABLET BY MOUTH DAILY NEEDED 10/30/2014 11/28/2014 Inactive (Response to an electronic controlled substance refill request - RxReferenceNumber: [id number]) alprazolam 0.25 mg tablet RxNorm: 930349 Tablet(s) TAKE ONE TABLET BY MOUTH DAILY 10/30/2014 10/29/2014 Inactive (Response to an electronic controlled substance refill request - RxReferenceNumber: [id number]) Lipitor 10 mg tablet RxNorm: 265338 TAKE ONE TABLET BY MOUTH EVERY DAY 10/30/2014 02/26/2015 Inactive alprazolam 0.25 mg tablet RxNorm: 339000 TAKE ONE TABLET BY MOUTH DAILY 10/07/2014 10/29/2014 Inactive (Response to an electronic controlled substance refill request - RxReferenceNumber: [id number]) alprazolam 0.25 mg tablet RxNorm: 252029 TAKE ONE TABLET BY MOUTH DAILY 10/06/2014 10/07/2014 Inactive (Response to an electronic controlled substance refill request - RxReferenceNumber: [id number]) alprazolam 0.25 mg tablet RxNorm: 323442 Tablet(s) TAKE ONE TABLET BY MOUTH EVERY DAY NEEDED 09/30/2014 10/06/2014 Inactive (Response to an electronic controlled substance refill request - RxReferenceNumber: [id number]) Fioricet 50 mg-325 mg-40 mg tablet RxNorm: 733168 Tablet(s) TAKE ONE TABLET BY MOUTH EVERY 4 HOURS NEEDED FOR headache 09/29/2014 10/12/2014 Inactive (Response to an electronic controlled substance refill request - RxReferenceNumber: [id number]) Bystolic 10 mg tablet RxNorm: 228031 1 Tablet(s) PO daily TAKE ONE TABLET BY MOUTH EVERY DAY 09/29/2014 04/26/2015 Inactive Bystolic 5 mg tablet RxNorm: 041542 TAKE 1 AND 1/2 TABLETS ONCE DAILY 09/24/2014 09/23/2014 Inactive Bystolic 5 mg tablet RxNorm: 162139 Tablet(s) TAKE 1 AND 1/2 TABLETS ONCE DAILY 09/24/2014 09/18/2015 Inactive gentamicin 0.3 % eye drops RxNorm: 817954 3 Drop(s) OPH QID 09/23/2014 09/29/2014 Inactive trazodone 50 mg tablet RxNorm: 125584 TAKE 1 AND 1/2 TABLET AT BEDTIME FOR 2 WEEKS, MAY INCREASE TO 2 TABLETS IF NECESSARY AFTER THAT 09/22/2014 01/26/2015 Inactive Fioricet 50 mg-325 mg-40 mg tablet RxNorm: 591018 TAKE ONE TABLET BY MOUTH EVERY 4 HOURS NEEDED FOR PAIN 09/17/2014 09/28/2014 Inactive (Response to an electronic controlled substance refill request - RxReferenceNumber: [id number]) Duragesic 50 mcg/hr transdermal patch RxNorm: 134550 1 TD q72 hours 08/07/2014 01/06/2015 Inactive [SAVINGS FOR UNINSURED PATIENTS -- BIN:[id number], PCN: ASPROD1, Group: [id number], ID# [id number], Process claim through FrameBuzz, for questions: . THIS IS NOT INSURANCE.] alprazolam 0.25 mg tablet RxNorm: 284773 TAKE ONE TABLET BY MOUTH EVERY DAY NEEDED 07/31/2014 08/29/2014 Inactive (Response to an electronic controlled substance refill request - RxReferenceNumber: [id number]) alprazolam 0.25 mg tablet RxNorm: 186246 1 Tablet(s) PO daily as needed TAKE ONE TABLET BY MOUTH EVERY DAY NEEDED 07/30/2014 08/01/2014 Inactive (Response to an electronic controlled substance refill request - [id number]) Diflucan 150 mg tablet RxNorm: 218762 1 Tablet(s) PO daily 06/25/2014 07/01/2014 Inactive [SAVINGS FOR UNINSURED PATIENTS -- BIN:[id number], PCN: ASPROD1, Group: [id number], ID# [id number], Process claim through MedImpact, for questions: . THIS IS NOT INSURANCE.] Kenalog 40 mg/mL suspension for injection RxNorm: 5510879 Milliliter(s) Inj 06/23/2014 06/23/2014 Inactive [SAVINGS FOR UNINSURED PATIENTS -- BIN:389882, PCN: ASPROD1, Group: [id number], ID# [id number], Process claim through MedImpact, for questions: . THIS IS NOT INSURANCE.] ceftriaxone 500 mg solution for injection RxNorm: 676045 Inj 06/23/2014 06/23/2014 Inactive [SAVINGS FOR UNINSURED PATIENTS -- BIN:996726, PCN: ASPROD1, Group: [id number], ID# [id number], Process claim through MedImpact, for questions: . THIS IS NOT INSURANCE.] Levaquin 500 mg tablet RxNorm: 409481 1 Tablet(s) PO daily 06/23/2014 07/13/2014 Inactive [SAVINGS FOR UNINSURED PATIENTS -- BIN:139847, PCN: ASPROD1, Group: [id number], ID# [id number], Process claim through MedImpact, for questions: . THIS IS NOT INSURANCE.] Duragesic 50 mcg/hr transdermal patch RxNorm: 448906 1 TD q72 hours 06/05/2014 08/06/2014 Inactive [SAVINGS FOR UNINSURED PATIENTS -- BIN:257365, PCN: ASPROD1, Group: [id number], ID# [id number], Process claim through MedImpact, for questions: . THIS IS NOT INSURANCE.] alprazolam 0.25 mg tablet RxNorm: 382430 1 Tablet(s) PO daily as needed TAKE ONE TABLET BY MOUTH EVERY DAY NEEDED 06/02/2014 07/29/2014 Inactive (Response to an electronic controlled substance refill request - RxReferenceNumber: [id number]) nystatin 100,000 unit/gram topical powder RxNorm: 345055 APPLY TO AFFECTED AREA(S) TWO TIMES A DAY 05/01/2014 06/14/2014 Inactive hydrochlorothiazide 25 mg tablet RxNorm: 191929 TAKE ONE TABLET BY MOUTH EVERY DAY MUST CALL MD FOR APPOINTMENT 04/24/2014 10/20/2014 Inactive alprazolam 0.25 mg tablet RxNorm: 958899 Tablet(s) TAKE ONE TABLET BY MOUTH EVERY DAY NEEDED 04/16/2014 06/02/2014 Inactive (Response to an electronic controlled substance refill request - RxReferenceNumber: [id number]) alprazolam 0.25 mg tablet RxNorm: 498036 TAKE ONE TABLET BY MOUTH EVERY DAY NEEDED 04/16/2014 05/15/2014 Inactive (Response to an electronic controlled substance refill request - RxReferenceNumber: [id number]) alprazolam 0.25 mg tablet RxNorm: 772153 TAKE ONE TABLET BY MOUTH EVERY DAY NEEDED 04/16/2014 05/15/2014 Inactive (Response to an electronic controlled substance refill request - RxReferenceNumber: [id number]) alprazolam 0.25 mg tablet RxNorm: 661430 TAKE ONE TABLET BY MOUTH EVERY DAY NEEDED 04/14/2014 04/16/2014 Inactive (Response to an electronic controlled substance refill request - RxReferenceNumber: [id number]) Lipitor 10 mg tablet RxNorm: 382711 TAKE ONE TABLET BY MOUTH EVERY DAY 04/14/2014 09/10/2014 Inactive alprazolam 0.25 mg tablet RxNorm: 181108 TAKE ONE TABLET BY MOUTH EVERY DAY NEEDED 04/14/2014 04/14/2014 Inactive (Response to an electronic controlled substance refill request - RxReferenceNumber: [id number]) alprazolam 0.25 mg tablet RxNorm: 473299 TAKE ONE TABLET BY MOUTH EVERY DAY NEEDED 04/14/2014 04/15/2014 Inactive (Response to an electronic controlled substance refill request - RxReferenceNumber: [id number]) alprazolam 0.25 mg tablet RxNorm: 611916 TAKE ONE TABLET BY MOUTH EVERY DAY NEEDED 04/14/2014 04/14/2014 Inactive (Response to an electronic controlled substance refill request - RxReferenceNumber: [id number]) nystatin 100,000 unit/gram topical powder RxNorm: 601183 1 Application TOP BID 04/03/2014 07/01/2014 Inactive [SAVINGS FOR UNINSURED PATIENTS -- BIN:059090, PCN: ASPROD1, Group: [id number], ID# [id number], Process claim through MedImpact, for questions: . THIS IS NOT INSURANCE.] Keflex 500 mg capsule RxNorm: 708974 1 Capsule(s) PO QID 04/03/2014 04/09/2014 Inactive [SAVINGS FOR UNINSURED PATIENTS -- BIN:615804, PCN: ASPROD1, Group: [id number], ID# [id number], Process claim through MedImpact, for questions: . THIS IS NOT INSURANCE.] Synthroid 100 mcg tablet RxNorm: 421597 1 Tablet(s) PO daily TAKE ONE TABLET BY MOUTH EVERY DAY 04/01/2014 01/05/2015 Inactive [SAVINGS FOR UNINSURED PATIENTS -- BIN:616885, PCN: ASPROD1, Group: AME08, ID# [id number], Process claim through MedImpact, for questions: . THIS IS NOT INSURANCE.] Duragesic 50 mcg/hr transdermal patch RxNorm: 789877 1 TD q72 hours 03/24/2014 06/04/2014 Inactive [SAVINGS FOR UNINSURED PATIENTS -- BIN:593926, PCN: ASPROD1, Group: [id number], ID# [id number], Process claim through MedImpact, for questions: . THIS IS NOT INSURANCE.] trazodone 50 mg tablet RxNorm: 823960 TAKE 1 AND 1/2 TABLET AT BEDTIME FOR 2 WEEKS, MAY INCREASE TO 2 TABLETS IF NECESSARY AFTER THAT 03/18/2014 09/13/2014 Inactive nystatin 100,000 unit/gram topical powder RxNorm: 935358 1 Application TOP BID 03/07/2014 03/16/2014 Inactive [SAVINGS FOR UNINSURED PATIENTS -- BIN:396140, PCN: ASPROD1, Group: AME08, ID# [id number], Process claim through MedImpact, for questions: . THIS IS NOT INSURANCE.] permethrin 5 % topical cream RxNorm: 717656 1 Application TOP daily 03/07/2014 11/23/2015 Inactive apply head to toe-leave on overnight and wash off in the a.m. May repeat x 1 if needed Diflucan 150 mg tablet RxNorm: 283835 1 Tablet(s) PO daily 03/07/2014 03/09/2014 Inactive [SAVINGS FOR UNINSURED PATIENTS -- BIN:219839, PCN: ASPROD1, Group: [id number], ID# [id number], Process claim through MedImpact, for questions: . THIS IS NOT INSURANCE.] hydrochlorothiazide 25 mg tablet RxNorm: 917212 TAKE ONE TABLET BY MOUTH EVERY DAY MUST CALL MD FOR APPOINTMENT 03/06/2014 04/23/2014 Inactive Zithromax Z-Sergio 250 mg tablet RxNorm: 327647 Tablet(s) PO as directed 03/04/2014 11/23/2015 Inactive [SAVINGS FOR UNINSURED PATIENTS -- BIN:545570, PCN: ASPROD1, Group: AME08, ID# [id number], Process claim through MedImpact, for questions: . THIS IS NOT INSURANCE.] Flonase 50 mcg/actuation nasal spray,suspension RxNorm: 834421 1 [place] NASAL daily 03/04/2014 07/01/2014 Inactive [SAVINGS FOR UNINSURED PATIENTS -- BIN:165307, PCN: ASPROD1, Group: [id number], ID# [id number], Process claim through MedImpact, for questions: . THIS IS NOT INSURANCE.] alprazolam 0.25 mg tablet RxNorm: 945985 1 Tablet(s) PO PRN TAKE ONE TABLET BY MOUTH EVERY DAY NEEDED 02/25/2014 04/14/2014 Inactive (Appended: Controlled substance eRx refill - RxReferenceNumber: [id number]) alprazolam 0.25 mg tablet RxNorm: 555349 TAKE ONE TABLET BY MOUTH EVERY DAY NEEDED 02/21/2014 03/22/2014 Inactive (Response to an electronic controlled substance refill request - RxReferenceNumber: [id number]) alprazolam 0.25 mg tablet RxNorm: 865388 TAKE ONE TABLET BY MOUTH EVERY DAY NEEDED 02/21/2014 03/22/2014 Inactive (Response to an electronic controlled substance refill request - RxReferenceNumber: [id number]) alprazolam 0.25 mg tablet RxNorm: 676281 TAKE ONE TABLET BY MOUTH EVERY DAY NEEDED 02/18/2014 03/19/2014 Inactive (Response to an electronic controlled substance refill request - RxReferenceNumber: [id number]) Cymbalta 60 mg capsule,delayed release RxNorm: 916795 TAKE ONE CAPSULE BY MOUTH TWICE A DAY 02/18/2014 01/13/2015 Inactive Nexium 40 mg capsule,delayed release RxNorm: 592313 TAKE ONE CAPSULE BY MOUTH EVERY DAY 02/18/2014 01/13/2015 Inactive Bactrim DS 800 mg-160 mg tablet RxNorm: 562764 1 Tablet(s) PO BID 02/13/2014 02/19/2014 Inactive probiotic while one antibiotic Bactrim DS 800 mg-160 mg tablet RxNorm: 965984 1 Tablet(s) PO BID 02/13/2014 02/12/2014 Inactive hydrocodone 10 mg-acetaminophen 325 mg tablet RxNorm: 652574 Tablet(s) PO TAKE ONE TO TWO TABLETS BY MOUTH EVERY 6 HOURS NEEDED FOR PAIN 02/06/2014 03/18/2015 Inactive (Appended: Controlled substance eRx refill - RxReferenceNumber: [id number]) Abilify 2 mg tablet RxNorm: 310320 Tablet(s) PO TAKE ONE TABLET BY MOUTH EVERY NIGHT AT BEDTIME 02/03/2014 03/19/2015 Inactive Duragesic 50 mcg/hr transdermal patch RxNorm: 240860 1 TD q72 hours 01/14/2014 03/23/2014 Inactive alprazolam 0.25 mg tablet RxNorm: 568066 1 Tablet(s) PO QDAY PRN 01/14/2014 02/12/2014 Inactive alprazolam 0.25 mg tablet RxNorm: 888341 Tablet(s) PO TAKE ONE TABLET BY MOUTH EVERY DAY NEEDED 01/14/2014 02/24/2014 Inactive (Appended: Controlled substance eRx refill - RxReferenceNumber: [id number]) Lipitor 10 mg tablet RxNorm: 419103 Tablet(s) PO TAKE ONE TABLET BY MOUTH EVERY DAY 01/14/2014 04/13/2014 Inactive Synthroid 100 mcg tablet RxNorm: 654467 Tablet(s) PO TAKE ONE TABLET BY MOUTH EVERY DAY 2013 03/31/2014 Inactive Fioricet 50 mg-325 mg-40 mg tablet RxNorm: 132672 Tablet(s) PO TAKE ONE TABLET BY MOUTH EVERY 4 HOURS NEEDED FOR PAIN 11/27/2013 09/17/2014 Inactive Fioricet 50 mg-325 mg-40 mg tablet RxNorm: 384404 Tablet(s) PO TAKE ONE TABLET BY MOUTH EVERY 4 HOURS NEEDED FOR PAIN 11/25/2013 11/26/2013 Inactive Zithromax Z-Sergio 250 mg tablet RxNorm: 273083 Tablet(s) PO as directed 11/11/2013 01/13/2014 Inactive Bystolic 10 mg tablet RxNorm: 957627 Tablet(s) PO TAKE ONE TABLET BY MOUTH EVERY DAY 10/21/2013 09/28/2014 Inactive Abilify 2 mg tablet RxNorm: 624396 1 Tablet(s) PO QHS 09/25/2013 01/22/2014 Inactive Synthroid 100 mcg tablet RxNorm: 121994 Tablet(s) PO TAKE ONE TABLET BY MOUTH EVERY DAY 09/24/2013 12/25/2013 Inactive Abilify 2 mg tablet RxNorm: 632318 1 Tablet(s) PO QHS 09/24/2013 09/24/2013 Inactive Rocephin 500 mg solution for injection RxNorm: 689930 1ml Milliliter(s) Inj 09/24/2013 09/24/2013 Inactive Rocephin 500 mg solution for injection RxNorm: 652317 1 Milliliter(s) Inj 09/19/2013 09/19/2013 Inactive Bystolic 5 mg tablet RxNorm: 651430 1 1/2 Tablet(s) PO daily 09/17/2013 03/15/2014 Inactive 1 1/2 daily may have 90 day if cheaper Bystolic 5 mg tablet RxNorm: 595358 1 1/2 Tablet(s) PO daily 09/17/2013 09/16/2013 Inactive 1 1/2 daily Lipitor 10 mg tablet RxNorm: 942757 Tablet(s) PO TAKE ONE TABLET BY MOUTH EVERY DAY 09/12/2013 01/13/2014 Inactive hydrocodone 10 mg-acetaminophen 325 mg tablet RxNorm: 795520 Tablet(s) PO TAKE ONE TO TWO TABLETS BY MOUTH EVERY 6 HOURS NEEDED FOR PAIN 09/09/2013 10/29/2017 Inactive (Appended: Controlled substance eRx refill - RxReferenceNumber: [id number]) hydrocodone 10 mg-acetaminophen 325 mg tablet RxNorm: 266088 1 Tablet(s) PO Q6 PRN 09/09/2013 02/06/2014 Inactive hydrocodone 10 mg-acetaminophen 325 mg tablet RxNorm: 596620 Tablet(s) PO TAKE ONE TO TWO TABLETS BY MOUTH EVERY 6 HOURS NEEDED FOR PAIN 09/06/2013 10/29/2017 Inactive (Appended: Controlled substance eRx refill - RxReferenceNumber: [id number]) Norvasc 10 mg tablet RxNorm: 064941 Tablet(s) PO TAKE ONE TABLET BY MOUTH EVERY DAY 09/05/2013 10/25/2015 Inactive trazodone 50 mg tablet RxNorm: 637405 1 1/2 Tablet(s) PO QHS 09/03/2013 03/17/2014 Inactive 75q hs x 2 week may increase to 100mg if nec after that nystatin 100,000 unit/mL oral suspension RxNorm: 489312 6 Milliliter(s) PO QID 08/06/2013 08/15/2013 Inactive Flonase 50 mcg/actuation nasal spray,suspension RxNorm: 169423 2 [place] NASAL daily 08/06/2013 03/03/2014 Inactive nystatin 100,000 unit/mL oral suspension RxNorm: 278815 6 Unit(s) PO QID 08/05/2013 08/05/2013 Inactive Phenergan with Codeine Syrup RxNorm: 5 Milliliter(s) PO Q4 PRN 08/05/2013 12/02/2013 Inactive 8 ounces alprazolam 0.25 mg tablet RxNorm: 997177 1 Tablet(s) PO QDAY PRN 07/29/2013 01/14/2014 Inactive Diflucan 150 mg tablet RxNorm: 575116 1 Tablet(s) PO daily 07/24/2013 07/26/2013 Inactive hydrochlorothiazide 25 mg tablet RxNorm: 681509 Tablet(s) PO TAKE ONE TABLET BY MOUTH EVERY DAY MUST CALL MD FOR APPOINTMENT 07/19/2013 03/05/2014 Inactive Phenergan with Codeine Syrup RxNorm: 10 Milliliter(s) PO Q4 PRN 07/10/2013 08/04/2013 Inactive 8 ounces Rocephin 500 mg solution for injection RxNorm: 748312 1 Inj 07/10/2013 07/10/2013 Inactive cefdinir 300 mg capsule RxNorm: 771308 1 Capsule(s) PO BID 07/10/2013 07/16/2013 Inactive prednisone 10 mg tablet RxNorm: 818333 3 Tablet(s) PO daily 07/10/2013 07/14/2013 Inactive Carafate 100 mg/mL oral suspension RxNorm: 516420 10 Milliliter(s) PO Q6 PRN pt to take carafate 10mL every 6 hours as needed. 07/10/2013 08/05/2014 Inactive Kenalog 40 mg/mL suspension for injection RxNorm: 5416871 1 Milliliter(s) Inj 07/10/2013 07/10/2013 Inactive trazodone 50 mg tablet RxNorm: 418702 1 Tablet(s) PO QHS 07/10/2013 09/02/2013 Inactive sulfamethoxazole 800 mg-trimethoprim 160 mg tablet RxNorm: 830460 1 Tablet(s) PO BID 06/03/2013 06/12/2013 Inactive Synthroid 125 mcg tablet RxNorm: 216478 1 Tablet(s) PO daily 05/07/2013 09/23/2013 Inactive Bystolic 10 mg tablet RxNorm: 259871 1.5 Tablet(s) PO daily 05/07/2013 09/03/2013 Inactive Voltaren 1 % Topical Gel RxNorm: 640729 4 Gram(s) TOP QID apply 4 grams to knees, 2 grams to hands and ankles four times daily. 05/07/2013 09/03/2013 Inactive hydrocodone 10 mg-acetaminophen 325 mg tablet RxNorm: 685503 1 Tablet(s) PO Q6 PRN 04/23/2013 09/09/2013 Inactive Norvasc 10 mg tablet RxNorm: 866334 Tablet(s) PO TAKE ONE TABLET BY MOUTH EVERY DAY 04/23/2013 09/04/2013 Inactive alprazolam 0.25 mg tablet RxNorm: 321195 1 Tablet(s) PO QDAY PRN 03/25/2013 07/22/2013 Inactive Bystolic 10 mg tablet RxNorm: 353159 1 Tablet(s) PO daily TAKE ONE TABLET BY MOUTH EVERY DAY 03/25/2013 05/06/2013 Inactive zolpidem 10 mg tablet RxNorm: 365535 1 Tablet(s) PO HS PRN 03/25/2013 07/09/2013 Inactive gentamicin 0.3 % Eye Drops RxNorm: 1238640 3 Drop(s) OPH QID three gtts to each eye QID x 7 days 03/11/2013 03/10/2013 Inactive gentamicin 0.3 % eye drops RxNorm: 185799 3 Drop(s) OPH QID three gtts to each eye QID x 7 days 03/11/2013 03/17/2013 Inactive Nexium 40 mg capsule,delayed release RxNorm: 623871 Capsule(s) PO TAKE ONE CAPSULE BY MOUTH EVERY DAY 02/15/2013 02/17/2014 Inactive Cymbalta 60 mg capsule,delayed release RxNorm: 062626 Capsule(s) PO TAKE ONE CAPSULE BY MOUTH TWICE A DAY 02/15/2013 02/17/2014 Inactive hydrocodone 10 mg-acetaminophen 325 mg tablet RxNorm: 1261497 1 Tablet(s) PO Q6 PRN 01/22/2013 04/22/2013 Inactive Lipitor 10 mg tablet RxNorm: 175750 Tablet(s) PO TAKE ONE TABLET BY MOUTH EVERY DAY 01/07/2013 09/11/2013 Inactive Cymbalta 60 mg capsule,delayed release RxNorm: 029620 Capsule(s) PO TAKE ONE CAPSULE BY MOUTH TWICE A DAY 01/02/2013 02/14/2013 Inactive Synthroid 100 mcg tablet RxNorm: 940719 1 Tablet(s) PO 12/03/2012 05/06/2013 Inactive Enablex 7.5 mg tablet,extended release RxNorm: 420515 1 Tablet(s) PO daily 11/28/2012 11/27/2012 Inactive Enablex 7.5 mg tablet,extended release RxNorm: 013391 1 Tablet(s) PO daily 11/28/2012 11/28/2012 Inactive scopolamine 1.5 mg 72 hr Transderm Patch RxNorm: 816356 1 Milligram(s) TD q72 hours 11/26/2012 05/06/2013 Inactive hydrochlorothiazide 25 mg tablet RxNorm: 261323 Tablet(s) PO TAKE ONE TABLET BY MOUTH EVERY DAY MUST CALL MD FOR APPOINTMENT 11/24/2012 07/18/2013 Inactive Cymbalta 60 mg capsule,delayed release RxNorm: 753984 Capsule(s) PO TAKE ONE CAPSULE BY MOUTH TWICE A DAY 10/26/2012 01/01/2013 Inactive Bystolic 10 mg tablet RxNorm: 541601 Tablet(s) PO TAKE ONE TABLET BY MOUTH EVERY DAY 10/12/2012 03/25/2013 Inactive zolpidem 10 mg tablet RxNorm: 924989 1 Tablet(s) PO HS PRN 10/02/2012 01/29/2013 Inactive alprazolam 0.25 mg tablet RxNorm: 506311 1 Tablet(s) PO QDAY PRN 10/02/2012 01/29/2013 Inactive Kenalog 40 mg/mL Susp for Injection RxNorm: 3617217 1 Milliliter(s) Inj 09/24/2012 09/24/2012 Inactive Diflucan 150 mg tablet RxNorm: 264081 1 Tablet(s) PO daily 09/24/2012 09/30/2012 Inactive acyclovir 400 mg tablet RxNorm: 233882 1 Tablet(s) PO QID 09/24/2012 10/08/2012 Inactive Cipro 500 mg tablet RxNorm: 500398 1 Tablet(s) PO BID 09/24/2012 09/30/2012 Inactive Tamiflu 75 mg capsule RxNorm: 380773 1 Capsule(s) PO BID 09/17/2012 09/16/2012 Inactive Tamiflu 75 mg capsule RxNorm: 251820 1 Capsule(s) PO BID 09/17/2012 09/16/2012 Inactive Tamiflu 75 mg capsule RxNorm: 516226 1 Capsule(s) PO BID please disregard order for #14 09/17/2012 09/21/2012 Inactive fluconazole 150 mg tablet RxNorm: 469455 1 Tablet(s) PO daily 09/10/2012 09/13/2012 Inactive ketoconazole 2 % Topical Cream RxNorm: 182763 Application TOP BID apply to affected area BID until gone 08/31/2012 11/01/2017 Inactive Norvasc 10 mg tablet RxNorm: 685552 Tablet(s) PO TAKE ONE TABLET BY MOUTH EVERY DAY 08/29/2012 04/22/2013 Inactive Cipro 500 mg tablet RxNorm: 876301 1 Tablet(s) PO BID 08/17/2012 08/26/2012 Inactive Flagyl 500 mg tablet RxNorm: 670672 1 Tablet(s) PO TID 08/17/2012 08/23/2012 Inactive Cipro 500 mg tablet RxNorm: 318797 1 Tablet(s) PO BID 08/17/2012 08/16/2012 Inactive zolpidem 10 mg tablet RxNorm: 160636 1 Tablet(s) PO HS PRN 08/17/2012 09/15/2012 Inactive Flagyl 500 mg tablet RxNorm: 045191 1 Tablet(s) PO TID 08/17/2012 08/16/2012 Inactive alprazolam 0.25 mg tablet RxNorm: 191256 1 Tablet(s) PO QDAY PRN 08/17/2012 09/15/2012 Inactive [place] Allergy 180 mg tablet RxNorm: 942046 1 Tablet(s) PO daily 08/08/2012 02/03/2013 Inactive hydrochlorothiazide 25 mg tablet RxNorm: 788752 1/2 Tablet(s) PO daily 08/08/2012 11/05/2012 Inactive needs appt Carafate 1 gram tablet RxNorm: 302188 1 Tablet(s) PO QID mix with 10 cc water and dissolve into slurry 08/08/2012 08/21/2012 Inactive hydrocodone 10 mg-acetaminophen 325 mg tablet RxNorm: 1421401 1 Tablet(s) PO Q6 PRN 08/08/2012 01/21/2013 Inactive Synthroid 100 mcg tablet RxNorm: 842444 1 Tablet(s) PO 08/08/2012 12/02/2012 Inactive Cymbalta 60 mg capsule,delayed release RxNorm: 735872 Capsule(s) PO 07/23/2012 10/25/2012 Inactive TAKE ONE CAPSULE BY MOUTH TWICE A DAY Nexium 40 mg capsule,delayed release RxNorm: 762689 Capsule(s) PO 06/20/2012 02/14/2013 Inactive TAKE ONE CAPSULE BY MOUTH EVERY DAY Lipitor 10 mg tablet RxNorm: 605750 Tablet(s) PO 06/20/2012 01/06/2013 Inactive TAKE ONE TABLET BY MOUTH EVERY DAY hydrochlorothiazide 25 mg tablet RxNorm: 639832 1 Tablet(s) PO daily 06/19/2012 08/07/2012 Inactive needs appt alprazolam 0.25 mg tablet RxNorm: 213704 1 Tablet(s) PO QDAY PRN 06/05/2012 07/04/2012 Inactive zolpidem 10 mg tablet RxNorm: 762041 1 Tablet(s) PO HS PRN 06/05/2012 07/04/2012 Inactive zolpidem 10 mg tablet RxNorm: 255067 1 Tablet(s) PO HS PRN 04/16/2012 05/15/2012 Inactive alprazolam 0.25 mg tablet RxNorm: 555037 1 Tablet(s) PO QDAY PRN 04/16/2012 05/15/2012 Inactive Cymbalta 60 mg capsule,delayed release RxNorm: 114033 1 Capsule(s) PO BID 03/22/2012 07/19/2012 Inactive Fioricet 50 mg-325 mg-40 mg tablet RxNorm: 539788 1 Tablet(s) PO Q4 PRN 03/22/2012 11/24/2013 Inactive Bystolic 10 mg tablet RxNorm: 616446 Tablet(s) PO 03/22/2012 10/11/2012 Inactive TAKE ONE TABLET BY MOUTH EVERY DAY potassium chloride ER 10 mEq Tab RxNorm: 271049 1 Tablet(s) PO daily 02/24/2012 03/01/2012 Inactive Lasix 20 mg Tab RxNorm: 896426 1 Tablet(s) PO daily 02/22/2012 02/21/2012 Inactive KCL 10 meq RxNorm: 1 PO daily 02/22/2012 02/21/2012 Inactive potassium chloride ER 10 mEq Tab RxNorm: 163540 1 Tablet(s) PO daily 02/22/2012 02/21/2012 Inactive Lasix 20 mg Tab RxNorm: 443141 1 Tablet(s) PO daily 02/22/2012 02/28/2012 Inactive KCL 10 meq RxNorm: 1 PO daily 02/22/2012 02/22/2012 Inactive potassium chloride ER 10 mEq Tab RxNorm: 300847 1 Tablet(s) PO daily 02/22/2012 02/23/2012 Inactive Rocephin 500 mg Solution for Injection RxNorm: 663260 Inj 02/15/2012 02/15/2012 Inactive Nexium 40 mg capsule,delayed release RxNorm: 061670 1 Capsule(s) PO daily 02/15/2012 No Stop Date Active Bystolic 10 mg Tab RxNorm: 125697 1 Tablet(s) PO daily 02/15/2012 08/12/2012 Inactive alprazolam 0.25 mg tablet RxNorm: 109190 1 Tablet(s) PO QDAY PRN 01/31/2012 02/29/2012 Inactive zolpidem 10 mg tablet RxNorm: 366863 1 Tablet(s) PO HS PRN 01/31/2012 02/29/2012 Inactive alprazolam 0.25 mg Tab RxNorm: 770580 1 Tablet(s) PO QDAY PRN 12/16/2011 01/14/2012 Inactive zolpidem 10 mg Tab RxNorm: 475104 1 Tablet(s) PO HS PRN 12/16/2011 01/14/2012 Inactive Norvasc 10 mg tablet RxNorm: 139748 1 Tablet(s) PO daily 12/02/2011 02/21/2012 Inactive Lipitor 10 mg tablet RxNorm: 409160 1 Tablet(s) PO daily 11/16/2011 05/13/2012 Inactive zolpidem 10 mg Tab RxNorm: 293551 1 Tablet(s) PO HS PRN 10/26/2011 12/15/2011 Inactive alprazolam 0.25 mg Tab RxNorm: 717254 1 Tablet(s) PO QDAY PRN 10/26/2011 12/15/2011 Inactive hydrochlorothiazide 25 mg tablet RxNorm: 827056 1 Tablet(s) PO daily 09/05/2011 03/02/2012 Inactive Synthroid 75 mcg tablet RxNorm: 947108 1 Tablet(s) PO daily 08/01/2011 02/26/2012 Inactive Abilify 2 mg Tab RxNorm: 333732 1 Tablet(s) PO QHS 08/01/2011 09/10/2012 Inactive dicyclomine 10 mg Cap RxNorm: 424616 1 Capsule(s) PO TID 08/01/2011 10/29/2011 Inactive alprazolam 0.25 mg Tab RxNorm: 407563 1 Tablet(s) PO QDAY PRN 07/26/2011 10/25/2011 Inactive Fioricet 50 mg-325 mg-40 mg tablet RxNorm: 411258 1 Tablet(s) PO Q4 PRN 07/14/2011 03/21/2012 Inactive Rocephin 500 mg Solution for Injection RxNorm: 486136 1 Milliliter(s) Inj 07/14/2011 08/01/2011 Inactive Nexium 40 mg Capsule, delayed release RxNorm: 766884 1 Capsule(s) PO daily 05/23/2011 10/06/2011 Inactive Bystolic 10 mg tablet RxNorm: 209556 1 Tablet(s) PO daily 05/23/2011 11/18/2011 Inactive Bystolic 10 mg Tab RxNorm: 144531 1 Tablet(s) PO daily 05/23/2011 05/22/2011 Inactive alprazolam 0.25 mg Tab RxNorm: 854257 1 Tablet(s) PO QDAY PRN 05/23/2011 07/25/2011 Inactive Influenza Virus Vaccine 0.5 mL RxNorm: IM 05/23/2011 05/23/2011 Inactive zolpidem 10 mg Tab RxNorm: 049411 1 Tablet(s) PO HS PRN 05/23/2011 10/25/2011 Inactive Rocephin 500 mg Solution for Injection RxNorm: 112504 1 Milliliter(s) Inj 05/03/2011 07/14/2011 Inactive Kenalog 40 mg/mL Susp for Injection RxNorm: 1405296 1 Milliliter(s) Inj 05/03/2011 07/14/2011 Inactive Bactrim DS 800 mg-160 mg Tab RxNorm: 409475 1 Tablet(s) PO BID 05/03/2011 08/01/2011 Inactive Bystolic 10 mg tablet RxNorm: 583392 1 Tablet(s) PO daily No Start Date Active Flonase 50 mcg/actuation nasal spray,suspension RxNorm: 8069192 2 [place] NASAL daily No Start Date 08/05/2013 Inactive Levaquin 500 mg tablet RxNorm: 749699 Tablet(s) PO No Start Date 04/19/2017 Inactive Duragesic 50 mcg/hr transdermal patch RxNorm: 488924 1 TD q72 hours No Start Date 01/13/2014 Inactive Vesicare 5 mg tablet RxNorm: 673752 1 Tablet(s) PO daily No Start Date 01/06/2015 Inactive Celebrex 200 mg capsule RxNorm: 891095 1 Capsule(s) PO daily No Start Date 04/02/2014 Inactive zolpidem 10 mg Tab RxNorm: 958983 1 Tablet(s) PO HS PRN No Start Date 05/22/2011 Inactive Zyrtec 10 mg Tab RxNorm: 1289122 1 Tablet(s) PO daily No Start Date 08/08/2012 Inactive Flonase 50 mcg/actuation nasal spray,suspension RxNorm: 4085934 1 [place] NASAL daily No Start Date 11/07/2017 Inactive 1 spray to each nostril daily Nexium 40 mg Cap RxNorm: 273586 1 Capsule(s) PO daily No Start Date 05/22/2011 Inactive ketoconazole 2 % Topical Cream RxNorm: 805937 Application TOP BID apply to affected area BID until gone No Start Date 08/30/2012 Inactive aspirin 81 mg tablet RxNorm: 252610 1 Tablet(s) PO daily No Start Date 11/13/2017 Inactive Cymbalta 60 mg capsule,delayed release RxNorm: 056699 1 Capsule(s) PO BID No Start Date 03/21/2012 Inactive alprazolam 0.25 mg Tab RxNorm: 671671 1 Tablet(s) PO QDAY PRN No Start Date 05/22/2011 Inactive baclofen 10 mg tablet RxNorm: 378493 1 Tablet(s) PO TID as needed muscle spasms No Start Date 11/14/2017 Inactive Toprol XL 100 mg 24 hr Tab RxNorm: 083350 1 Tablet(s) PO BID No Start Date 04/25/2011 Inactive Xanax 0.25 mg tablet RxNorm: 577852 1 Tablet(s) PO daily as needed No Start Date 12/27/2015 Inactive Bystolic 10 mg Tab RxNorm: 361326 1 Tablet(s) PO daily No Start Date 05/22/2011 Inactive Fioricet 50 mg-325 mg-40 mg Tab RxNorm: 436686 1 Tablet(s) PO Q4 PRN No Start Date 07/13/2011 Inactive albuterol sulfate HFA 90 mcg/Actuation Aerosol Inhaler RxNorm: 8396842 1 INH Q4 PRN No Start Date 01/06/2015 Inactive Imitrex 50 mg tablet RxNorm: 730451 1 Tablet(s) PO Q8 as needed may repeat x1 dose in 1 hour of inital dose. No Start Date 02/24/2016 Inactive dc fioricet Tessalon 200 mg Cap RxNorm: 635579 1 Capsule(s) PO Q4 PRN No Start Date 02/14/2012 Inactive Zithromax Z-Sergio 250 mg tablet RxNorm: 315717 Tablet(s) PO No Start Date 11/10/2013 Inactive hydrochlorothiazide 25 mg Tab RxNorm: 525062 1 Tablet(s) PO daily No Start Date 09/04/2011 Inactive Fish Oil 1,000 mg Cap RxNorm: 1 Capsule(s) PO TID No Start Date 11/08/2017 Inactive Deplin 15 mg Tab RxNorm: 1 Tablet(s) PO daily No Start Date 08/01/2011 Inactive Brilinta 90 mg tablet RxNorm: 4639923 1 Tablet(s) PO BID No Start Date 11/23/2015 Inactive Synthroid 75 mcg Tab RxNorm: 615830 1 Tablet(s) PO daily No Start Date 07/31/2011 Inactive ciprofloxacin 0.3 % eye drops RxNorm: 666010 2 Drop(s) ophthalmic (eye) Q2H while awake x 2 days, then Q4H x 5 days No Start Date 11/22/2017 Inactive scopolamine 1.5 mg 72 hr Transderm Patch RxNorm: 934972 1 Milligram(s) TD q72 hours No Start Date 11/25/2012 Inactive hydrocodone-acetaminophen 10 mg-325 mg tablet RxNorm: 4135692 1 Tablet(s) PO Q6 PRN No Start Date 08/07/2012 Inactive Phenergan with Codeine Syrup RxNorm: 5-10 Milliliter(s) PO Q6 PRN No Start Date 02/14/2012 Inactive Norvasc 10 mg Tab RxNorm: 567538 1 Tablet(s) PO daily No Start Date 12/01/2011 Inactive Zithromax Z-Sergio 250 mg Tab RxNorm: 033128 Tablet(s) PO No Start Date 08/01/2011 Inactive Medication Administered Medication Codes Instructions Start Date Status ceftriaxone 500 mg solution for injection RxNorm: 2532466 05/28/2018 No longer Active Kenalog 40 mg/mL suspension for injection RxNorm: 4567103 Milliliter 05/28/2018 No longer Active ceftriaxone 500 mg solution for injection RxNorm: 9140117 500Milligram 01/19/2018 No longer Active Kenalog 40 mg/mL suspension for injection RxNorm: 8997614 1Milliliter 01/19/2018 No longer Active Kenalog 40 mg/mL suspension for injection RxNorm: 4066206 1Milliliter 06/27/2017 No longer Active Kenalog 40 mg/mL suspension for injection RxNorm: 2950712 Milliliter 04/20/2017 No longer Active Kenalog 40 mg/mL suspension for injection RxNorm: 1047355 1Milliliter 03/14/2017 No longer Active ceftriaxone 500 mg solution for injection RxNorm: 3636706 1Milliliter 11/28/2016 No longer Active Kenalog 40 mg/mL suspension for injection RxNorm: 5941907 Milliliter 11/07/2016 No longer Active ceftriaxone 500 mg solution for injection RxNorm: 5130804 11/07/2016 No longer Active ceftriaxone 500 mg solution for injection RxNorm: 2486380 12/07/2015 No longer Active Kenalog 40 mg/mL suspension for injection RxNorm: 3567571 1Milliliter 11/24/2015 No longer Active ceftriaxone 500 mg solution for injection RxNorm: 8818495 Milliliter 11/24/2015 No longer Active promethazine 25 mg/mL injection solution RxNorm: 999887 Milliliter 08/27/2015 No longer Active ketorolac 60 mg/2 mL intramuscular solution RxNorm: 058736 Milliliter 08/27/2015 No longer Active Kenalog 40 mg/mL suspension for injection RxNorm: 1948414 Milliliter 08/10/2015 No longer Active ceftriaxone 500 mg solution for injection RxNorm: 5425368 08/10/2015 No longer Active ceftriaxone 500 mg solution for injection RxNorm: 2217625 1Milliliter 07/28/2015 No longer Active Kenalog 40 mg/mL suspension for injection RxNorm: 2506702 Milliliter 03/19/2015 No longer Active Kenalog 40 mg/mL suspension for injection RxNorm: 0251393 Milliliter 06/23/2014 No longer Active ceftriaxone 500 mg solution for injection RxNorm: 571881 06/23/2014 No longer Active Rocephin 500 mg solution for injection RxNorm: 478063 1mlMilliliter 09/24/2013 No longer Active Rocephin 500 mg solution for injection RxNorm: 075383 1Milliliter 09/19/2013 No longer Active Rocephin 500 mg solution for injection RxNorm: 977127 1 07/10/2013 No longer Active Kenalog 40 mg/mL suspension for injection RxNorm: 4452952 1Milliliter 07/10/2013 No longer Active Kenalog 40 mg/mL Susp for Injection RxNorm: 5140172 1Milliliter 09/24/2012 No longer Active Rocephin 500 mg Solution for Injection RxNorm: 184464 02/15/2012 No longer Active Influenza Virus Vaccine 0.5 mL RxNorm: 05/23/2011 No longer Active Immunizations Vaccine Codes Date Status Influenza CVX: 141 06/24/2013 completed Pneumococcal CVX: 33 06/24/2013 completed PPD Unknown 05/13/2013 completed Assessments Condition Codes Effective Dates Mixed hyperlipidemia ICD-10: E78.2 ICD-9: 272.4 10/30/2018 Essential (primary) hypertension ICD-10: I10 ICD-9: 401.1 10/30/2018 Hypothyroidism, unspecified ICD-10: E03.9 ICD-9: 244.9 [...] Reason For Visit Effective Dates Notes hypertension 10/30/2018 eye discharge 10/08/2018 hypertension 07/16/2018 [...] Item Item Code Result Date Free T4 Gux751 FREE T4 0.71 ng/dL 10/31/2018 Tsh Ord6 TSH (3rd IS) 7.87 uIU/mL 10/31/2018 Lipid Ord30 CHOL 170 mg/dL 10/31/2018 Lipid Ord30 HDL 53.0 mg/dl 10/31/2018 Lipid Ord30 TRIG 85 mg/dL 10/31/2018 Lipid Ord30 LDL 100 mg/dL 10/31/2018 Lipid Ord30 C/HDL 3.2 Ratio 10/31/2018 Comp Metabolic Paw893 NA 142 mEq/L 10/31/2018 Comp Metabolic Pdm590 K 4.0 mEq/L 10/31/2018 Comp Metabolic Ixt174 CL 106 mEq/L 10/31/2018 Comp Metabolic Rnp776 CO2 27.0 mEq/L 10/31/2018 Comp Metabolic Ynh921 ANION GAP 13 10/31/2018 Comp Metabolic Xym548 GLUCOSE 114 mg/dL 10/31/2018 Comp Metabolic Oof900 Creat 0.7 mg/dL 10/31/2018 Comp Metabolic Pmw892 eGFR 90 ml/min/1.73m2 10/31/2018 Comp Metabolic Idt325 BUN 21 mg/dL 10/31/2018 Comp Metabolic Agq886 B/C Ratio 30.9 Ratio 10/31/2018 Comp Metabolic Xcy195 CALCIUM 9.7 mg/dL 10/31/2018 Comp Metabolic Jus864 ALK PHOS 63 U/L 10/31/2018 Comp Metabolic Rgw083 AST(SGOT) 24 U/L 10/31/2018 Comp Metabolic Wvm194 ALT(SGPT) 21 U/L 10/31/2018 Comp Metabolic Sob743 BILI T 0.6 mg/dL 10/31/2018 Comp Metabolic Mov481 ALBUMIN 4.1 g/dL 10/31/2018 Comp Metabolic Zdk247 TPRO 6.6 g/dL 10/31/2018 Comp Metabolic Aah605 GLOB 2.5 g/dL 10/31/2018 Comp Metabolic Dkr007 A/G Ratio 1.7 Ratio 10/31/2018 Comp Metabolic Brh776 Osmo 287 mOsmo 10/31/2018 Cbc With Differential [...] 30.9 pg 10/31/2018 Cbc With Differential Ord2 [place]% 8.0 % 10/31/2018 Cbc With Differential Ord2 [...] 1.88 K/ul 10/31/2018 Cbc With Differential Ord2 [place] ABS# 0.6 K/ul 10/31/2018 Cbc With Differential Ord2 Eos ABS# 0.5 K/ul 10/31/2018 Cbc With Differential Ord2 Baso ABS# 0.1 K/ul 10/31/2018 Comp Metabolic Bpi503 NA 141 mEq/L 09/12/2017 Comp Metabolic Ubn209 K 4.1 mEq/L 09/12/2017 Comp Metabolic Vzm216 CL 105 mEq/L 09/12/2017 Comp Metabolic Wmz505 CO2 30.0 mEq/L 09/12/2017 Comp Metabolic Gmo308 ANION GAP 10 09/12/2017 Comp Metabolic Evq027 GLUCOSE 97 mg/dL 09/12/2017 Comp Metabolic Qsa270 Creat 0.7 mg/dL 09/12/2017 Comp Metabolic Acl242 eGFR 91 ml/min/1.73m2 09/12/2017 Comp Metabolic Xhe468 BUN 18 mg/dL 09/12/2017 Comp Metabolic Muo898 B/C Ratio 26.5 Ratio 09/12/2017 Comp Metabolic Vqj589 CALCIUM 9.7 mg/dL 09/12/2017 Comp Metabolic Upi891 ALK PHOS 60 U/L 09/12/2017 Comp Metabolic Hxl688 AST(SGOT) 22 U/L 09/12/2017 Comp Metabolic Sfp691 ALT(SGPT) 23 U/L 09/12/2017 Comp Metabolic Ybk721 BILI T 0.4 mg/dL 09/12/2017 Comp Metabolic Phv615 ALBUMIN 3.8 g/dL 09/12/2017 Comp Metabolic Hbv348 TPRO 6.4 g/dL 09/12/2017 Comp Metabolic Nyx909 GLOB 2.6 g/dL 09/12/2017 Comp Metabolic Ikp802 A/G Ratio 1.5 Ratio 09/12/2017 Comp Metabolic Mvu669 Osmo 283 mOsmo 09/12/2017 Cbc With Differential [...] 30.7 pg 09/12/2017 Cbc With Differential Ord2 [place]% 7.2 % 09/12/2017 Cbc With Differential Ord2 [...] 2.46 K/ul 09/12/2017 Cbc With Differential Ord2 [place] ABS# 0.6 K/ul 09/12/2017 Cbc With Differential [...] 31.4 pg 11/07/2016 Cbc With Differential Ord2 [place]% 6.1 % 11/07/2016 Cbc With Differential Ord2 [...] 2.48 K/ul 11/07/2016 Cbc With Differential Ord2 [place] ABS# 0.6 K/ul 11/07/2016 Cbc With Differential Ord2 Eos ABS# 0.3 K/ul 11/07/2016 Cbc With Differential Ord2 Baso ABS# 0.1 K/ul 11/07/2016 Comp Metabolic Baf974 NA 139 mEq/L 11/07/2016 Comp Metabolic Obd024 K 3.8 mEq/L 11/07/2016 Comp Metabolic Fqh719 CL 106 mEq/L 11/07/2016 Comp Metabolic Ugf188 CO2 25.0 mEq/L 11/07/2016 Comp Metabolic Ruq189 ANION GAP 12 11/07/2016 Comp Metabolic Utz921 GLUCOSE 98 mg/dL 11/07/2016 Comp Metabolic Fmz532 Creat 0.8 mg/dL 11/07/2016 Comp Metabolic Emr892 eGFR 71 ml/min/1.73m2 11/07/2016 Comp Metabolic Lbw813 BUN 36 mg/dL 11/07/2016 Comp Metabolic Jda680 B/C Ratio 42.9 Ratio 11/07/2016 Comp Metabolic Vxr090 CALCIUM 9.9 mg/dL 11/07/2016 Comp Metabolic Ars860 ALK PHOS 57 U/L 11/07/2016 Comp Metabolic Tcl183 AST(SGOT) 24 U/L 11/07/2016 Comp Metabolic Lsm136 ALT(SGPT) 28 U/L 11/07/2016 Comp Metabolic Bqv760 BILI T 0.4 mg/dL 11/07/2016 Comp Metabolic Dxj291 ALBUMIN 4.2 g/dL 11/07/2016 Comp Metabolic Uvl114 TPRO 7.0 g/dL 11/07/2016 Comp Metabolic Mtc823 GLOB 2.8 g/dL 11/07/2016 Comp Metabolic Tii801 A/G Ratio 1.5 Ratio 11/07/2016 Comp Metabolic Ddr346 Osmo 286 mOsmo 11/07/2016 Free T4 Nzh862 FREE T4 0.75 ng/dL 11/07/2016 Tsh Ord6 hTSH II 3.46 uIU/mL 11/07/2016 Comp Metabolic Rjm674 NA 138 mEq/L 05/10/2016 Comp Metabolic Xqo339 K 3.8 mEq/L 05/10/2016 Comp Metabolic Fbv535 CL 102 mEq/L 05/10/2016 Comp Metabolic Pxx401 CO2 29.0 mEq/L 05/10/2016 Comp Metabolic Lxu205 ANION GAP 11 05/10/2016 Comp Metabolic Igg437 GLUCOSE 107 mg/dL 05/10/2016 Comp Metabolic Ivr007 Creat 0.7 mg/dL 05/10/2016 Comp Metabolic Bpj493 eGFR 93 ml/min/1.73m2 05/10/2016 Comp Metabolic Soh939 BUN 18 mg/dL 05/10/2016 Comp Metabolic Exb603 B/C Ratio 26.9 Ratio 05/10/2016 Comp Metabolic Oyg019 CALCIUM 9.8 mg/dL 05/10/2016 Comp Metabolic Sxx370 ALK PHOS 60 U/L 05/10/2016 Comp Metabolic Jze537 AST(SGOT) 21 U/L 05/10/2016 Comp Metabolic Tth999 ALT(SGPT) 23 U/L 05/10/2016 Comp Metabolic Tsz793 BILI T 0.5 mg/dL 05/10/2016 Comp Metabolic Jzt158 ALBUMIN 4.1 g/dL 05/10/2016 Comp Metabolic Xff519 TPRO 6.7 g/dL 05/10/2016 Comp Metabolic Vuo945 GLOB 2.7 g/dL 05/10/2016 Comp Metabolic Udx437 A/G Ratio 1.5 Ratio 05/10/2016 Comp Metabolic Aes599 Osmo 278 mOsmo 05/10/2016 Lipid Ord30 CHOL 169 mg/dL 05/10/2016 Lipid Ord30 HDL 50.0 mg/dl 05/10/2016 Lipid Ord30 TRIG 161 mg/dL 05/10/2016 Lipid Ord30 LDL 87 mg/dL 05/10/2016 Lipid Ord30 C/HDL 3.4 Ratio 05/10/2016 Comp Metabolic Tco074 NA 137 mEq/L 06/12/2015 Comp Metabolic Txd854 K 3.8 mEq/L 06/12/2015 Comp Metabolic Kdy093 CL 104 mEq/L 06/12/2015 Comp Metabolic Rrl658 CO2 24.0 mEq/L 06/12/2015 Comp Metabolic Juc358 ANION GAP 13 06/12/2015 Comp Metabolic Msn468 GLUCOSE 92 mg/dL 06/12/2015 Comp Metabolic Yoi458 Creat 0.7 mg/dL 06/12/2015 Comp Metabolic Aya019 eGFR 87 ml/min/1.73m2 06/12/2015 Comp Metabolic Lwf373 BUN 31 mg/dL 06/12/2015 Comp Metabolic Ulh897 B/C Ratio 43.7 Ratio 06/12/2015 Comp Metabolic Dsw247 CALCIUM 10.0 mg/dL 06/12/2015 Comp Metabolic Jma748 ALK PHOS 58 U/L 06/12/2015 Comp Metabolic Ram497 AST(SGOT) 32 U/L 06/12/2015 Comp Metabolic Hea797 ALT(SGPT) 33 U/L 06/12/2015 Comp Metabolic Jot154 BILI T 0.5 mg/dL 06/12/2015 Comp Metabolic Lvs850 ALBUMIN 4.1 g/dL 06/12/2015 Comp Metabolic Ckm260 TPRO 6.6 g/dL 06/12/2015 Comp Metabolic Amd746 GLOB 2.5 g/dL 06/12/2015 Comp Metabolic Ntc664 A/G Ratio 1.6 Ratio 06/12/2015 Comp Metabolic Gcp592 Osmo 280 mOsmo 06/12/2015 Cbc With Differential [...] Differential Ord2 RDW 14.2 % 06/12/2015 CBC 2596081 WBC 8.7 10e9/L 04/30/2013 CBC 4475206 RBC 4.63 10e12/L 04/30/2013 CBC 4892764 HGB 14.1 g/dL 04/30/2013 CBC 3198093 HCT DET 42.2 % 04/30/2013 CBC 4932135 MCV 91.1 fL 04/30/2013 CBC 0566824 MCH 30.5 pg 04/30/2013 CBC 3314178 MCHC 33.4 g/dL 04/30/2013 CBC 1705389 PLT 248 10e9/L 04/30/2013 CBC 6003571 MPV 12.1 fL 04/30/2013 CBC 8278636 LARA % 59.0 % 04/30/2013 CBC 5397558 LY % 27.6 % 04/30/2013 CBC 1778483 MON % 8.0 % 04/30/2013 CBC 8683329 EOS % 4.8 % 04/30/2013 CBC 9696015 BASO % 0.6 % 04/30/2013 CBC 0349754 RDW 13.3 % 04/30/2013 CBC 0576993 ABS LARA 5.13 10e9/L 04/30/2013 CBC 1660993 ABS LYMPH 2.40 10e9/L 04/30/2013 CBC 0850326 ABS MONO 0.70 10e9/L 04/30/2013 CBC 0978631 ABS EOS 0.42 10e9/L 04/30/2013 CBC 8630645 ABS BASO 0.05 10e9/L 04/30/2013 CBC 5735432 RDW-SD 43.1 fL 04/30/2013 TSH 4525736 TSH 4.339 uIU/ML 04/30/2013 A1C HPLC 6440118 A1C HPLC 42692-7 5.6 % 04/30/2013 FREE T4 5762428 FREE T4 0.84 NG/DL 04/30/2013 GFR CALC 5787205 GFR AA >60 ML/MIN 04/30/2013 GFR CALC 3096486 GFR NON-AA >60 ML/MIN 04/30/2013 CHEM 14 7507570 AST 22 U/L 04/30/2013 CHEM 14 0506544 ALT 22 IU/L 04/30/2013 CHEM 14 2953621 BUN 24 MG/DL 04/30/2013 CHEM 14 3661689 ALBUMIN 4.2 GM/DL 04/30/2013 CHEM 14 7138192 CHLORIDE 107 MMOL/L 04/30/2013 CHEM 14 8745717 BILI TOT 0.3 MG/DL 04/30/2013 CHEM 14 3901758 ALK PHOS 88 U/L 04/30/2013 CHEM 14 7340584 SODIUM 141 MMOL/L 04/30/2013 CHEM 14 3186926 CREATININE 0.60 MG/DL 04/30/2013 CHEM 14 5861478 CALCIUM 9.9 MG/DL 04/30/2013 CHEM 14 1961805 POTASSIUM 3.7 MMOL/L 04/30/2013 CHEM 14 1332072 PROT TOT 6.6 GM/DL 04/30/2013 CHEM 14 6832984 GLUCOSE 123 MG/DL 04/30/2013 CHEM 14 7376621 BICARB 25 MMOL/L 04/30/2013 CHEM 14 4306758 ANION GAP 9 MEQ/L 04/30/2013 LIPID GRP HDL TEST 46 MG/DL 04/30/2013 LIPID GRP TRIG 148 MG/DL 04/30/2013 LIPID GRP TEST LDL 75 MG/DL 04/30/2013 LIPID GRP CHOL 151 MG/DL 04/30/2013 LIPID GRP RCHOL/HDL 3.28 RATIO 04/30/2013 TSH 8740924 TSH 3.341 uIU/ML 11/29/2012 CBC 9586725 WBC 8.4 10e9/L 11/29/2012 CBC 7368392 RBC 4.77 10e12/L 11/29/2012 CBC 5484149 HGB 14.9 g/dL 11/29/2012 CBC 8719113 HCT DET 44.2 % 11/29/2012 CBC 2245848 MCV 92.7 fL 11/29/2012 CBC 9878606 MCH 31.2 pg 11/29/2012 CBC 2862449 MCHC 33.7 g/dL 11/29/2012 CBC 4654372 PLT 253 10e9/L 11/29/2012 CBC 9996277 MPV 11.8 fL 11/29/2012 CBC 9561719 LARA % 54.9 % 11/29/2012 CBC 6931204 LY % 29.0 % 11/29/2012 CBC 3106678 MON % 10.4 % 11/29/2012 CBC 9932371 EOS % 5.1 % 11/29/2012 CBC 4651789 BASO % 0.6 % 11/29/2012 CBC 6280375 RDW 13.8 % 11/29/2012 CBC 9808686 ABS LARA 4.61 10e9/L 11/29/2012 CBC 6790809 ABS LYMPH 2.44 10e9/L 11/29/2012 CBC 5866332 ABS MONO 0.87 10e9/L 11/29/2012 CBC 9365116 ABS EOS 0.43 10e9/L 11/29/2012 CBC 4985870 ABS BASO 0.05 10e9/L 11/29/2012 CBC 4031006 RDW-SD 45.9 fL 11/29/2012 CHEM 14 4033157 AST 25 U/L 11/29/2012 CHEM 14 2647149 ALT 26 IU/L 11/29/2012 CHEM 14 0025092 BUN 25 MG/DL 11/29/2012 CHEM 14 3394726 ALBUMIN 4.4 GM/DL 11/29/2012 CHEM 14 2927572 CHLORIDE 106 MMOL/L 11/29/2012 CHEM 14 6580818 BILI TOT 0.4 MG/DL 11/29/2012 CHEM 14 5815369 ALK PHOS 86 U/L 11/29/2012 CHEM 14 5508452 SODIUM 141 MMOL/L 11/29/2012 CHEM 14 3409077 CREATININE 0.80 MG/DL 11/29/2012 CHEM 14 2756773 CALCIUM 9.7 MG/DL 11/29/2012 CHEM 14 7860993 POTASSIUM 4.0 MMOL/L 11/29/2012 CHEM 14 9021206 PROT TOT 6.6 GM/DL 11/29/2012 CHEM 14 2386944 GLUCOSE 112 MG/DL 11/29/2012 CHEM 14 6467408 BICARB 29 MMOL/L 11/29/2012 CHEM 14 4599577 ANION GAP 6 MEQ/L 11/29/2012 A1C HPLC 1777975 A1C HPLC 13034-1 5.5 % 11/29/2012 LIPID GRP HDL TEST 54 MG/DL 11/29/2012 LIPID GRP TRIG 77 MG/DL 11/29/2012 LIPID GRP TEST LDL 78 MG/DL 11/29/2012 LIPID GRP CHOL 147 MG/DL 11/29/2012 LIPID GRP RCHOL/HDL 2.72 RATIO 11/29/2012 FREE T4 6723513 FREE T4 1.23 NG/DL 11/29/2012 GFR CALC 9528198 GFR AA >60 ML/MIN 11/29/2012 GFR CALC 7333971 GFR NON-AA >60 ML/MIN 11/29/2012 CHEM 14 0519688 AST 23 U/L 08/07/2012 CHEM 14 2947500 ALT 34 IU/L 08/07/2012 CHEM 14 0872154 BUN 26 MG/DL 08/07/2012 CHEM 14 1970667 ALBUMIN 4.4 GM/DL 08/07/2012 CHEM 14 6098545 CHLORIDE 105 MMOL/L 08/07/2012 CHEM 14 1989494 BILI TOT 0.5 MG/DL 08/07/2012 CHEM 14 8022512 ALK PHOS 79 U/L 08/07/2012 CHEM 14 9740243 SODIUM 140 MMOL/L 08/07/2012 CHEM 14 4942828 CREATININE 0.71 MG/DL 08/07/2012 CHEM 14 8884260 CALCIUM 10.4 MG/DL 08/07/2012 CHEM 14 8623135 POTASSIUM 3.8 MMOL/L 08/07/2012 CHEM 14 3412789 PROT TOT 6.8 GM/DL 08/07/2012 CHEM 14 1577849 GLUCOSE 104 MG/DL 08/07/2012 CHEM 14 4404963 BICARB 27 MMOL/L 08/07/2012 CHEM 14 7830704 ANION GAP 8 MEQ/L 08/07/2012 A1C HPLC 9113226 A1C HPLC 79693-3 5.4 % 08/07/2012 FREE T4 1832301 FREE T4 1.11 NG/DL 08/07/2012 LIPID GRP HDL TEST 50 MG/DL 08/07/2012 LIPID GRP TRIG 127 MG/DL 08/07/2012 LIPID GRP TEST LDL 93 MG/DL 08/07/2012 LIPID GRP CHOL 168 MG/DL 08/07/2012 LIPID GRP RCHOL/HDL 3.36 RATIO 08/07/2012 CBC 3238758 WBC 8.7 10e9/L 08/07/2012 CBC 5974635 RBC 4.67 10e12/L 08/07/2012 CBC 0619183 HGB 14.4 g/dL 08/07/2012 CBC 7141707 HCT DET 42.8 % 08/07/2012 CBC 3849711 MCV 91.6 fL 08/07/2012 CBC 2222670 MCH 30.8 pg 08/07/2012 CBC 3824202 MCHC 33.6 g/dL 08/07/2012 CBC 4184222 PLT 271 10e9/L 08/07/2012 CBC 6419637 MPV 12.3 fL 08/07/2012 CBC 5928790 LARA % 50.6 % 08/07/2012 CBC 2023099 LY % 34.9 % 08/07/2012 CBC 7423555 MON % 9.1 % 08/07/2012 CBC 6564693 EOS % 5.1 % 08/07/2012 CBC 2202221 BASO % 0.3 % 08/07/2012 CBC 7187784 RDW 13.6 % 08/07/2012 CBC 3766892 ABS LARA 4.40 10e9/L 08/07/2012 CBC 8740127 ABS LYMPH 3.04 10e9/L 08/07/2012 CBC 4003549 ABS MONO 0.79 10e9/L 08/07/2012 CBC 5679371 ABS EOS 0.44 10e9/L 08/07/2012 CBC 3979106 ABS BASO 0.03 10e9/L 08/07/2012 CBC 0527209 RDW-SD 44.1 fL 08/07/2012 TSH 0436354 TSH 7.419 uIU/ML 08/07/2012 GFR CALC 7330293 GFR AA >60 ML/MIN 08/07/2012 GFR CALC 4052533 GFR NON-AA >60 ML/MIN 08/07/2012 A1C HPLC 3367072 A1C HPLC 99942-0 5.3 % 02/21/2012 TSH 2300081 TSH 0.832 uIU/ML 02/16/2012 FREE T4 3458097 FREE T4 1.04 NG/DL 02/16/2012 GFR CALC 7179857 GFR AA >60 ML/MIN 02/16/2012 GFR CALC 2653296 GFR NON-AA >60 ML/MIN 02/16/2012 BMP 0016491 GLUCOSE 112 MG/DL 02/16/2012 BMP CREATININE 0.65 MG/DL 02/16/2012 BMP BUN 17 MG/DL 02/16/2012 BMP 1008493 SODIUM 144 MMOL/L 02/16/2012 BMP 0260950 POTASSIUM 4.0 MMOL/L 02/16/2012 BMP 0438543 CHLORIDE 107 MMOL/L 02/16/2012 BMP 1464819 BICARB 29 MMOL/L 02/16/2012 BMP 5592713 ANION GAP 8 MEQ/L 02/16/2012 BMP 3389316 CALCIUM 9.5 MG/DL 02/16/2012 CBC 4718679 WBC 7.1 10e9/L 02/16/2012 CBC 1723207 RBC 4.47 10e12/L 02/16/2012 CBC 6994853 HGB 13.5 g/dL 02/16/2012 CBC 6081948 HCT DET 40.7 % 02/16/2012 CBC 3198296 MCV 91.1 fL 02/16/2012 CBC 8766599 MCH 30.2 pg 02/16/2012 CBC 3340694 MCHC 33.2 g/dL 02/16/2012 CBC 3560672 PLT 238 10e9/L 02/16/2012 CBC 8849713 MPV 11.4 fL 02/16/2012 CBC 5888507 LARA % 55.7 % 02/16/2012 CBC 5224918 LY % 29.6 % 02/16/2012 CBC 9084355 MON % 9.2 % 02/16/2012 CBC 5133340 EOS % 5.1 % 02/16/2012 CBC 8815980 BASO % 0.4 % 02/16/2012 CBC 1747217 RDW 13.0 % 02/16/2012 CBC 7102889 ABS LARA 3.95 10e9/L 02/16/2012 CBC 5636959 ABS LYMPH 2.10 10e9/L 02/16/2012 CBC 4199531 ABS MONO 0.65 10e9/L 02/16/2012 CBC 4855460 ABS EOS 0.36 10e9/L 02/16/2012 CBC 6145297 ABS BASO 0.03 10e9/L 02/16/2012 CBC 5026403 RDW-SD 42.4 fL 02/16/2012 URINALYSIS NONAUTO W/O SCOPE 47012 Specific [place] 1.015 DateTime(Free Text in Aprima) URINALYSIS NONAUTO W/O SCOPE 88745 PH 7 DateTime(Free Text in Aprima) URINALYSIS NONAUTO W/O SCOPE 38755 GLUCOSE neg DateTime(Free Text in Aprima) URINALYSIS NONAUTO W/O SCOPE 25425 Protein 1+ DateTime(Free Text in Aprima) URINALYSIS NONAUTO W/O SCOPE 94632 Blood neg DateTime(Free Text in Aprima) URINALYSIS NONAUTO W/O SCOPE 83675 Bilirubin neg DateTime(Free Text in Aprima) URINALYSIS NONAUTO W/O SCOPE 95039 Ketones neg DateTime(Free Text in Aprima) URINALYSIS NONAUTO W/O SCOPE 70924 Urobilinogen neg DateTime(Free Text in Aprima) URINALYSIS NONAUTO W/O SCOPE 26090 Nitrite postive DateTime(Free Text in Aprima) URINALYSIS NONAUTO W/O SCOPE 26510 Leukocytes 3+ DateTime(Free Text in Aprima) URINALYSIS NONAUTO W/O SCOPE 79383 Specific [place] 1.030 DateTime(Free Text in Aprima) URINALYSIS NONAUTO W/O SCOPE 43462 PH 6 DateTime(Free Text in Aprima) URINALYSIS NONAUTO W/O SCOPE 99420 GLUCOSE neg DateTime(Free Text in Aprima) URINALYSIS NONAUTO W/O SCOPE 31484 Protein neg DateTime(Free Text in Aprima) URINALYSIS NONAUTO W/O SCOPE 27403 Blood neg DateTime(Free Text in Aprima) URINALYSIS NONAUTO W/O SCOPE 45924 Bilirubin neg DateTime(Free Text in Aprima) URINALYSIS NONAUTO W/O SCOPE 99067 Ketones neg DateTime(Free Text in Aprima) URINALYSIS NONAUTO W/O SCOPE 27312 Urobilinogen neg DateTime(Free Text in Aprima) URINALYSIS NONAUTO W/O SCOPE 93466 Nitrite neg DateTime(Free Text in Aprima) URINALYSIS NONAUTO W/O SCOPE 14750 Leukocytes trace DateTime(Free Text in Aprima) URINALYSIS NONAUTO W/O SCOPE 91629 Specific [place] 1.005 DateTime(Free Text in Aprima) URINALYSIS NONAUTO W/O SCOPE 10363 PH 5 DateTime(Free Text in Aprima) URINALYSIS NONAUTO W/O SCOPE 23681 GLUCOSE neg DateTime(Free Text in Aprima) URINALYSIS NONAUTO W/O SCOPE 34601 Protein neg DateTime(Free Text in Aprima) URINALYSIS NONAUTO W/O SCOPE 13584 Blood neg DateTime(Free Text in Aprima) URINALYSIS NONAUTO W/O SCOPE 29168 Bilirubin neg DateTime(Free Text in Aprima) URINALYSIS NONAUTO W/O SCOPE 95387 Ketones neg DateTime(Free Text in Aprima) URINALYSIS NONAUTO W/O SCOPE 04911 Urobilinogen neg DateTime(Free Text in Aprima) URINALYSIS NONAUTO W/O SCOPE 05636 Nitrite neg DateTime(Free Text in Aprima) URINALYSIS NONAUTO W/O SCOPE 30733 Leukocytes neg DateTime(Free Text in Aprima) UA 30248 Specific [place] 1.030 DateTime(Free Text in Aprima) UA 61592 PH 5 DateTime(Free Text in Aprima) UA 64586 GLUCOSE neg DateTime(Free Text in Aprima) UA 72345 Protein trace DateTime(Free Text in Aprima) UA 92874 Blood large DateTime(Free Text in Aprima) UA 33550 Bilirubin neg DateTime(Free Text in Aprima) UA 63268 Ketones neg DateTime(Free Text in Aprima) UA 41384 Urobilinogen neg DateTime(Free Text in Aprima) UA 87816 Nitrite neg DateTime(Free Text in Aprima) UA 18653 Leukocytes large DateTime(Free Text in Aprima) Review of Systems System Result Effective Dates Constitutional No recent illness 10/30/2018 Constitutional No [...] distress 09/19/2013 None Full Exam - General 1995 Constitutional general appearance Overall: well nourished 09/19/2013 [...] swelling 02/15/2012 None Full Exam - General 1995 [...] Codes Date URINALYSIS NONAUTO W/O SCOPE CPT-4: 15176 07/10/2018 TRIAMCINOLONE ACET INJ NOS CPT-4: J3301 05/28/2018 ROCEPHIN, PER 250 MG CPT- 4: J0696 05/28/2018 ROCEPHIN, PER 250 MG CPT- 4: J0696 01/19/2018 TRIAMCINOLONE ACET INJ NOS CPT-4: J3301 01/19/2018 PPPS, SUBSEQ VISIT CPT- 4: G0439 11/23/2017 TRIAMCINOLONE ACET INJ NOS CPT-4: J3301 06/27/2017 THER/PROPH/DIAG INJ SC/IM CPT-4: 30821 04/20/2017 TRIAMCINOLONE ACET INJ NOS CPT-4: J3301 04/20/2017 TRIAMCINOLONE ACET INJ NOS CPT-4: J3301 03/14/2017 ROCEPHIN, PER 250 MG CPT- 4: J0696 03/14/2017 DESTRUCT PREMALG LESION CPT-4: 70138 12/05/2016 DESTRUCT PREMALG LES 2-14 CPT-4: 80248 12/05/2016 URINALYSIS NONAUTO W/O SCOPE CPT-4: 33070 11/28/2016 ROCEPHIN, PER 250 MG CPT- 4: J0696 11/28/2016 PPPS, SUBSEQ VISIT CPT- 4: G0439 11/07/2016 THER/PROPH/DIAG INJ SC/IM CPT-4: 60407 11/07/2016 TRIAMCINOLONE ACET INJ NOS CPT-4: J3301 11/07/2016 ROCEPHIN, PER 250 MG CPT- 4: J0696 11/07/2016 THER/PROPH/DIAG INJ SC/IM CPT-4: 45145 08/15/2016 TRIAMCINOLONE ACET INJ NOS CPT-4: J3301 08/15/2016 ROCEPHIN, PER 250 MG CPT- 4: J0696 08/15/2016 URINALYSIS NONAUTO W/O SCOPE CPT-4: 81992 05/05/2016 ROCEPHIN, PER 250 MG CPT- 4: J0696 12/07/2015 TRIAMCINOLONE ACET INJ NOS CPT-4: J3301 11/24/2015 ROCEPHIN, PER 250 MG CPT- 4: J0696 11/24/2015 THER/PROPH/DIAG INJ SC/IM CPT-4: 68772 11/24/2015 THER/PROPH/DIAG INJ SC/IM CPT-4: 47136 08/27/2015 KETOROLAC TROMETHAMINE INJ CPT-4: J1885 08/27/2015 PROMETHAZINE HCL INJECTION CPT-4: J2550 08/27/2015 THER/PROPH/DIAG INJ SC/IM CPT-4: 38633 08/10/2015 TRIAMCINOLONE ACET INJ NOS CPT-4: J3301 08/10/2015 ROCEPHIN, PER 250 MG CPT- 4: J0696 08/10/2015 C WOUN RTS (CULTURE OTHR SPECIMN AEROBIC) CPT-4: 91771 07/28/2015 THER/PROPH/DIAG INJ SC/IM CPT-4: 85291 03/19/2015 TRIAMCINOLONE ACET INJ NOS CPT-4: J3301 03/19/2015 ROCEPHIN, PER 250 MG CPT- 4: J0696 06/23/2014 TRIAMCINOLONE ACET INJ NOS CPT-4: J3301 06/23/2014 INJ TRIGGER POINT 1/2 MUSCL CPT-4: 77017 06/05/2014 URINALYSIS NONAUTO W/O SCOPE CPT-4: 75452 02/11/2014 URINALYSIS NONAUTO W/O SCOPE CPT-4: 81744 10/15/2013 ROCEPHIN, PER 250 MG CPT- 4: J0696 09/24/2013 THER/PROPH/DIAG INJ SC/IM CPT-4: 43156 09/19/2013 ROCEPHIN, PER 250 MG CPT- 4: J0696 09/19/2013 PRESCRIP TRANSMIT VIA ERX SY CPT-4: G8553 08/05/2013 ROCEPHIN, PER 250 MG CPT- 4: J0696 07/10/2013 THER/PROPH/DIAG INJ SC/IM CPT-4: 58845 07/10/2013 TRIAMCINOLONE ACET INJ NOS CPT-4: J3301 07/10/2013 PRESCRIP TRANSMIT VIA ERX SY CPT-4: G8553 07/10/2013 08774 EST. PATIENT, LEVEL III CPT-4: 66040 06/03/2013 PRESCRIP TRANSMIT VIA ERX SY CPT-4: G8553 06/03/2013 PRESCRIP TRANSMIT VIA ERX SY CPT-4: G8553 05/07/2013 ROUTINE VENIPUNCTURE CPT- 4: 66976 04/30/2013 ROUTINE VENIPUNCTURE CPT- 4: 78763 11/29/2012 TRIAMCINOLONE ACET INJ NOS CPT-4: J3301 09/24/2012 THER/PROPH/DIAG INJ SC/IM CPT-4: 74631 09/24/2012 URINALYSIS NONAUTO W/O SCOPE CPT-4: 18606 09/24/2012 PRESCRIP TRANSMIT VIA ERX SY CPT-4: G8553 09/24/2012 PRESCRIP TRANSMIT VIA ERX SY CPT-4: G8553 09/10/2012 PRESCRIP TRANSMIT VIA ERX SY CPT-4: G8553 08/08/2012 ROUTINE VENIPUNCTURE CPT- 4: 73416 08/07/2012 ROUTINE VENIPUNCTURE CPT- 4: 10305 02/16/2012 URINALYSIS NONAUTO W/O SCOPE CPT-4: 43387 02/15/2012 ROCEPHIN, PER 250 MG CPT- 4: J0696 02/15/2012 PRESCRIP TRANSMIT VIA ERX SY CPT-4: G8553 02/15/2012 ROUTINE VENIPUNCTURE CPT- 4: 65563 11/08/2011 ROCEPHIN, PER 250 MG CPT- 4: J0696 07/14/2011 THER/PROPH/DIAG INJ SC/IM CPT-4: 45171 07/14/2011 Influenza Virus Vaccine, Split Virus, >3 Yrs, IM CPT-4: 33591 05/23/2011 IMMUNIZATION ADMIN CPT- 4: 03529 05/23/2011 THER/PROPH/DIAG INJ SC/IM CPT-4: 94632 05/03/2011 ROCEPHIN, PER 250 MG CPT- 4: J0696 05/03/2011 TRIAMCINOLONE ACET INJ NOS CPT-4: J3301 05/03/2011 Vital Signs Date Vital 10/30/2018 Blood Pressure 1: 158/98 Code: 8480-6 BMI: 31.7 Code: 27104-8 Heart Rate 1: 80 bpm Height: 4'11" SpO2: 96% Weight: 157 lbs 10/08/2018 Blood Pressure 1: 140/80 Code: 8480-6 BMI: 32.1 Code: 88332-2 Heart Rate 1: 92 bpm Height: 4'11" SpO2: 103% Weight: 159 lbs 07/16/2018 Blood Pressure 1: 142/80 Code: 8480-6 BMI: 31.1 Code: 62289-5 Heart Rate 1: 78 bpm Height: 4'11" SpO2: 98% Weight: 154 lbs 07/10/2018 Blood Pressure 1: 156/82 Code: 8480-6 BMI: 31.1 Code: 51287-1 Heart Rate 1: 63 bpm Height: 4'11" SpO2: 99% Weight: 154 lbs 05/28/2018 Blood Pressure 1: 142/80 Code: 8480-6 Heart Rate 1: 82 bpm Height: SpO2: 97% Temperature: 35.9 (C) / 96.6 (F) Weight: 02/07/2018 Height: Weight: 01/19/2018 Blood Pressure 1: 128/76 Code: 8480-6 BMI: 31.2 Code: 02488-1 Heart Rate 1: 71 bpm Height: 4'11" SpO2: 96% Temperature: 36.5 (C) / 97.7 (F) Weight: 154 lbs 8 oz 11/23/2017 Blood Pressure 1: 146/80 Code: 8480-6 BMI: 31.7 Code: 39837-8 Heart Rate 1: 64 bpm Height: 4'11" SpO2: 97% Waist Measure (cm): 89 cm Weight: 157 lbs 09/12/2017 Blood Pressure 1: 140/86 Code: 8480-6 Heart Rate 1: 62 bpm SpO2: 96% Temperature: 36.6 (C) / 97.8 (F) Weight: 153 lbs 07/25/2017 Blood Pressure 1: 140/72 Code: 8480-6 BMI: 31.3 Code: 87931-9 Heart Rate 1: 76 bpm Height: 4'11" SpO2: 97% Temperature: 37.2 (C) / 99.0 (F) Weight: 155 lbs 06/27/2017 Blood Pressure 1: 144/84 Code: 8480-6 BMI: 31.1 Code: 17812-5 Heart Rate 1: 63 bpm Height: 4'11" SpO2: 99% Temperature: 36.4 (C) / 97.6 (F) Weight: 154 lbs 05/08/2017 Blood Pressure 1: 142/86 Code: 8480-6 BMI: 30.9 Code: 00891-6 Height: 4'11" Temperature: 36.3 (C) / 97.4 (F) Weight: 153 lbs 03/14/2017 Blood Pressure 1: 146/82 Code: 8480-6 BMI: 30.9 Code: 80054-0 Heart Rate 1: 64 bpm Height: 4'11" SpO2: 94% Weight: 153 lbs 02/20/2017 Blood Pressure 1: 142/80 Code: 8480-6 BMI: 30.9 Code: 65456-3 Heart Rate 1: 75 bpm Height: 4'11" SpO2: 97% Weight: 153 lbs 02/06/2017 Blood Pressure 1: 138/90 Code: 8480-6 BMI: 31.5 Code: 62401-4 Heart Rate 1: 61 bpm Height: 4'11" SpO2: 98% Weight: 156 lbs 12/05/2016 Blood Pressure 1: 122/72 Code: 8480-6 Heart Rate 1: 59 bpm Height: 4'11" SpO2: 98% Weight: 11/28/2016 Blood Pressure 1: 154/86 Code: 8480-6 BMI: 31.3 Code: 02617-6 Heart Rate 1: 64 bpm Height: 4'11" SpO2: 94% Temperature: 36.2 (C) / 97.2 (F) Weight: 155 lbs 11/07/2016 Blood Pressure 1: 128/64 Code: 8480-6 BMI: 31.5 Code: 47412-0 Heart Rate 1: 59 bpm Height: 4'11" SpO2: 97% Weight: 156 lbs 08/15/2016 Blood Pressure 1: 110/62 Code: 8480-6 BMI: 31.5 Code: 95281-8 Heart Rate 1: 76 bpm Height: 4'11" SpO2: 97% Weight: 156 lbs 06/07/2016 Blood Pressure 1: 120/80 Code: 8480-6 BMI: 32.9 Code: 80425-5 Heart Rate 1: 63 bpm Height: 4'11" SpO2: 93% Temperature: 36.5 (C) / 97.7 (F) Weight: 163 lbs 03/15/2016 Blood Pressure 1: 90/42 Code: 8480-6 Heart Rate 1: 65 bpm SpO2: 94% 03/14/2016 Blood Pressure 1: 188/110 Code: 8480-6 Heart Rate 1: 68 bpm SpO2: 96% 02/22/2016 Blood Pressure 1: 158/80 Code: 8480-6 BMI: 32.7 Code: 82740-3 Heart Rate 1: 71 bpm Height: 4'11" SpO2: 95% Weight: 162 lbs 12/07/2015 Blood Pressure 1: 140/88 Code: 8480-6 BMI: 32.9 Code: 98445-3 Heart Rate 1: 99 bpm Height: 4'11" SpO2: 94% Temperature: 35.9 (C) / 96.6 (F) Weight: 163 lbs 11/24/2015 Blood Pressure 1: 144/78 Code: 8480-6 BMI: 33.7 Code: 25038-9 Heart Rate 1: 60 bpm Height: 4'11" SpO2: 98% Temperature: 36.6 (C) / 97.9 (F) Weight: 167 lbs 08/27/2015 Blood Pressure 1: 164/82 Code: 8480-6 BMI: 32.3 Code: 35168-8 Heart Rate 1: 60 bpm Height: 4'11" SpO2: 93% Weight: 160 lbs 08/10/2015 Blood Pressure 1: 130/60 Code: 8480-6 BMI: 32.5 Code: 82137-7 Heart Rate 1: 64 bpm Height: 4'11" SpO2: 97% Weight: 161 lbs 07/28/2015 Blood Pressure 1: 124/68 Code: 8480-6 BMI: 32.5 Code: 76677-0 Heart Rate 1: 69 bpm Height: 4'11" SpO2: 97% Weight: 161 lbs 06/11/2015 Blood Pressure 1: 148/80 Code: 8480-6 BMI: 32.9 Code: 96442-7 Heart Rate 1: 70 bpm Height: 4'11" SpO2: 94% Weight: 163 lbs 03/19/2015 Blood Pressure 1: 150/102 Code: 8480-6 Blood Pressure 2: 152/92 Code: 8480-6 BMI: 32.5 Code: 02357-9 Heart Rate 1: 71 bpm Height: 4'11" SpO2: 96% Weight: 161 lbs 01/07/2015 Blood Pressure 1: 126/84 Code: 8480-6 Heart Rate 1: 80 bpm Height: 4'11" 09/23/2014 Blood Pressure 1: 112/72 Code: 8480-6 BMI: 33.9 Code: 72307-4 Heart Rate 1: 72 bpm Height: 4'11" Weight: 168 lbs 08/05/2014 Blood Pressure 1: 140/86 Code: 8480-6 BMI: 33.3 Code: 22445-4 Height: 4'11" Weight: 165 lbs 06/23/2014 Blood Pressure 1: 132/70 Code: 8480-6 BMI: 32.9 Code: 69246-9 Heart Rate 1: 58 bpm Height: 4'11" Temperature: 36.0 (C) / 96.8 (F) Weight: 163 lbs 06/05/2014 Blood Pressure 1: 121/85 Code: 8480-6 BMI: 34.3 Code: 15304-6 Height: 4'11" Weight: 170 lbs 04/03/2014 Blood Pressure 1: 128/80 Code: 8480-6 Heart Rate 1: 88 bpm Weight: 167 lbs 03/07/2014 Blood Pressure 1: 122/82 Code: 8480-6 BMI: 33.9 Code: 67102-3 Heart Rate 1: 68 bpm Height: 4'11" Weight: 168 lbs 11/21/2013 Blood Pressure 1: 100/58 Code: 8480-6 BMI: 33.7 Code: 15121-3 Heart Rate 1: 64 bpm Height: 4'11" Weight: 167 lbs 09/24/2013 Blood Pressure 1: 148/88 Code: 8480-6 Heart Rate 1: 68 bpm Weight: 09/19/2013 Blood Pressure 1: 120/80 Code: 8480-6 BMI: 33.9 Code: 45543-2 Heart Rate 1: 80 bpm Height: 4'11" Temperature: 36.9 (C) / 98.5 (F) Weight: 168 lbs 08/05/2013 Blood Pressure 1: 128/80 Code: 8480-6 BMI: 34.3 Code: 41701-3 Heart Rate 1: 64 bpm Height: 4'11" Temperature: 36.2 (C) / 97.2 (F) Weight: 170 lbs 07/10/2013 Blood Pressure 1: 120/84 Code: 8480-6 BMI: 36.0 Code: 62569-8 Heart Rate 1: 90 bpm Height: 4'11" SpO2: 97% Temperature: 36.8 (C) / 98.2 (F) Weight: 178 lbs 06/03/2013 Blood Pressure 1: 136/94 Code: 8480-6 BMI: 34.7 Code: 44167-3 Heart Rate 1: 68 bpm Height: 4'11" Temperature: 36.7 (C) / 98.0 (F) Weight: 172 lbs 05/13/2013 Blood Pressure 1: 132/90 Code: 8480-6 Heart Rate 1: 68 bpm 05/07/2013 Blood Pressure 1: 168/100 Code: 8480-6 BMI: 34.3 Code: 37226-4 Heart Rate 1: 76 bpm Height: 4'11" Weight: 170 lbs 12/03/2012 Blood Pressure 1: 142/78 Code: 8480-6 BMI: 33.5 Code: 00136-4 Heart Rate 1: 76 bpm Height: 4'11" Weight: 166 lbs 09/24/2012 Blood Pressure 1: 116/70 Code: 8480-6 Heart Rate 1: 68 bpm Respiratory Rate: 16 bpm Temperature: 36.9 (C) / 98.4 (F) Weight: 162 lbs 09/10/2012 Blood Pressure 1: 116/80 Code: 8480-6 BMI: 33.7 Code: 29703-5 Heart Rate 1: 76 bpm Height: 4'11" [...] 1: 149/85 Code: 8480-6 BMI: 32.9 Code: 91322-0 Heart Rate 1: 79 bpm Height: 4'11" Weight: 164 lbs 05/03/2011 Blood Pressure 1: 122/79 Code: 8480-6 BMI: 30.8 Code: 26546-6 Heart Rate 1: 72 bpm Height: 5'1" Weight: 163 lbs 04/25/2011 Blood Pressure 1: 137/84 Code: 8480-6 BMI: 31.0 Code: 24498-2 Heart Rate 1: 63 bpm Height: 5'1" Respiratory Rate: 20 bpm Weight: 164 lbs Functional Status No Functional Status data History of Present Illness Symptom Name Status Result Effective Date Notes Quality primary hypertension 10/30/2018 None Onset and [...] increase her duragesic and referral to dr otriz for epidural knee pain Location on the [...] days ago 02/15/2012 while visiting mother in [place] had uti and was put on pyridum [...] surg in december. then took trip to [facility] to see mother and has had [...] Quality chronic 08/01/2011 states went shopping on [employer] over night without taking any of medications [...] data Encounters Encounter Performer Location Codes Date 43269 EST. PATIENT, LEVEL IV Diagnosis: Essential (primary) hypertension[ICD10: I10] Diagnosis: Mixed hyperlipidemia[ICD10: E78.2] Diagnosis: Hypothyroidism, unspecified[ICD10: E03.9] Shahida Goldman MD, [facility] CPT-4: 10026 10/30/2018 20330 EST. PATIENT, LEVEL III Diagnosis: Other mucopurulent conjunctivitis, bilateral[ICD10: H10.023] Diagnosis: Other allergic rhinitis[ICD10: J30.89] Shahida Goldman MD, [facility] CPT-4: 37022 10/08/2018 05129 EST. PATIENT, LEVEL III Diagnosis: Essential (primary) hypertension[ICD10: I10] Diagnosis: Generalized anxiety disorder[ICD10: F41.1] Isabelle Goldman MD, [facility] CPT-4: 28863 07/16/2018 ([id number]) 83196 EST. PATIENT, LEVEL III Diagnosis: Acute recurrent maxillary sinusitis[ICD10: J01.01] Diagnosis: Frequency of micturition[ICD10: R35.0] Diagnosis: Low back pain[ICD10: M54.5] [facility] CPT-4: 20309 07/10/2018 ([id number]) 91718 EST. PATIENT, LEVEL III Diagnosis: Acute recurrent maxillary sinusitis[ICD10: J01.01] Shahida Goldman MD, [facility] CPT-4: 82618 05/28/2018 ([id number]) Miscellaneous no charge Diagnosis: Laceration without foreign body, left lower leg, subsequent encounter[ICD10: S81.812D] Diagnosis: Laceration without foreign body, right lower leg, subsequent encounter[ICD10: S81.811D] Isabelle Goldman MD, [facility] CPT-4: 29445 02/08/2018 20083 EST. PATIENT, LEVEL III Diagnosis: Cellulitis of left lower limb[ICD10: L03.116] Diagnosis: Cellulitis of right lower limb[ICD10: L03.115] Diagnosis: Laceration without foreign body, left lower leg, initial encounter[ICD10: S81.812A] Diagnosis: Laceration without foreign body, right lower leg, initial encounter[ICD10: S81.811A] Isabelle Goldman MD, [facility] CPT-4: 30469 02/07/2018 ([id number]) 14437 EST. PATIENT, LEVEL IV Diagnosis: Primary generalized (osteo)arthritis[ICD10: M15.0] Diagnosis: Acute recurrent maxillary sinusitis[ICD10: J01.01] Diagnosis: Low back pain[ICD10: M54.5] Diagnosis: Other allergic rhinitis[ICD10: J30.89] Diagnosis: Obstructive sleep apnea (adult) (pediatric)[ICD10: G47.33] Shahida Goldman MD, [facility] CPT-4: 39151 01/19/2018 62363 EST. PATIENT, LEVEL IV Diagnosis: Diarrhea, unspecified[ICD10: R19.7] Diagnosis: Generalized abdominal pain[ICD10: R10.84] Diagnosis: Other allergic rhinitis[ICD10: J30.89] Diagnosis: Other acute sinusitis[ICD10: J01.80] Isabelle Goldman MD, [facility] CPT- 4: 35778 09/12/2017 79473 EST. PATIENT, LEVEL III Diagnosis: Acute laryngopharyngitis[ICD10: J06.0] Diagnosis: Other allergic rhinitis[ICD10: J30.89] Diagnosis: Cough[ICD10: R05] Diagnosis: Wheezing[ICD10: R06.2] Isabelle Goldman MD, [facility] CPT-4: 54915 07/25/2017 ([id number]) 96663 EST. PATIENT, LEVEL IV Diagnosis: Acute recurrent maxillary sinusitis[ICD10: J01.01] Diagnosis: Cervicalgia[ICD10: M54.2] Diagnosis: Diarrhea, unspecified[ICD10: R19.7] Shahida Goldman MD, [facility] CPT-4: 85279 06/27/2017 ([id number]) 20958 EST. PATIENT, LEVEL III Diagnosis: Chronic maxillary sinusitis[ICD10: J32.0] Diagnosis: Gastro-esophageal reflux disease without esophagitis[ICD10: K21.9] Shahida Goldman MD, [facility] CPT-4: 74758 05/08/2017 ([id number]) 34814 EST. PATIENT, LEVEL III Diagnosis: Acute recurrent maxillary sinusitis[ICD10: J01.01] Shahida Goldman MD, [facility] CPT-4: 29376 03/14/2017 03500 EST. PATIENT, LEVEL IV Diagnosis: Epigastric pain[ICD10: R10.13] Diagnosis: Left upper quadrant pain[ICD10: R10.12] Diagnosis: Left lower quadrant pain[ICD10: R10.32] Isabelle Goldman MD, [facility] CPT-4: 29476 02/20/2017 ([id number]) 98344 EST. PATIENT, LEVEL IV Diagnosis: Generalized anxiety disorder[ICD10: F41.1] Diagnosis: Major depressive disorder, recurrent, moderate[ICD10: F33.1] Diagnosis: Left upper quadrant pain[ICD10: R10.12] Diagnosis: Epigastric pain[ICD10: R10.13] Diagnosis: Actinic keratosis[ICD10: L57.0] Melba Goldman MD, [facility] CPT-4: 41593 02/06/2017 ([id number]) 68739 EST. PATIENT, LEVEL III Diagnosis: Actinic keratosis[ICD10: L57.0] Diagnosis: Major depressive disorder, recurrent, moderate[ICD10: F33.1] Melba Goldman MD, [facility] CPT-4: 40055 12/05/2016 ([id number]) 73012 EST. PATIENT, LEVEL III Diagnosis: Acute recurrent maxillary sinusitis[ICD10: J01.01] Diagnosis: Dysuria[ICD10: R30.0] Shahida Goldman MD, [facility] CPT-4: 91902 11/28/2016 97604 EST. PATIENT, LEVEL IV Diagnosis: Other acute sinusitis[ICD10: J01.80] Diagnosis: Acute laryngopharyngitis[ICD10: J06.0] Diagnosis: Other allergic rhinitis[ICD10: J30.89] Isabelle Goldman MD, [facility] CPT- 4: 89274 08/15/2016 ([id number]) 32539 EST. PATIENT, LEVEL III Diagnosis: Acute recurrent maxillary sinusitis[ICD10: J01.01] Diagnosis: Low back pain[ICD10: M54.5] Shahida Goldman MD, [facility] CPT-4: 86185 06/07/2016 ([id number]) Miscellaneous no charge Diagnosis: Essential (primary) hypertension[ICD10: I10] Shahida Goldman MD, [facility] CPT-4: 82549 03/15/2016 97654 EST. PATIENT, LEVEL IV Diagnosis: Essential (primary) hypertension[ICD10: I10] Diagnosis: Headache[ICD10: R51] Diagnosis: Generalized anxiety disorder[ICD10: F41.1] Shahida Goldman MD, [facility] CPT-4: 10598 03/14/2016 29653 EST. PATIENT, LEVEL III Diagnosis: Laceration without foreign body, left lower leg, initial encounter[ICD10: S81.812A] Isabelle Goldman MD, [facility] CPT-4: 21597 02/22/2016 ([id number]) 51200 EST. PATIENT, LEVEL III Diagnosis: Acute recurrent maxillary sinusitis[ICD10: J01.01] Diagnosis: Cough[ICD10: R05] Diagnosis: Allergic rhinitis due to pollen[ICD10: J30.1] Shahida Goldman MD, [facility] CPT-4: 13068 12/07/2015 ([id number]) 37135 EST. PATIENT, LEVEL IV Diagnosis: Essential (primary) hypertension[ICD10: I10] Diagnosis: Acute recurrent maxillary sinusitis[ICD10: J01.01] Diagnosis: Generalized anxiety disorder[ICD10: F41.1] Diagnosis: Cervicalgia[ICD10: M54.2] Diagnosis: Generalized intra-abdominal and pelvic swelling, mass and lump[ICD10: R19.07] Melba Goldman MD, [facility] CPT-4: 79629 11/24/2015 54728 EST. PATIENT, LEVEL III Diagnosis: Other migraine, intractable, without status migrainosus[ICD10: G43.819] Isabelle Goldman MD, [facility] CPT-4: 30694 08/27/2015 97302 EST. PATIENT, LEVEL III Diagnosis: Acute recurrent maxillary sinusitis[ICD10: J01.01] Diagnosis: Candidal stomatitis[ICD10: B37.0] Diagnosis: Acute laryngopharyngitis[ICD10: J06.0] Isabelle Goldman MD, [facility] CPT- 4: 09978 08/10/2015 08157 EST. PATIENT, LEVEL III Diagnosis: Superficial foreign body of left hand, initial encounter[ICD10: S60.552A] Melba Goldman MD, [facility] CPT-4: 23757 07/28/2015 ([id number]) 20400 EST. PATIENT, LEVEL III Diagnosis: Essential (primary) hypertension[ICD10: I10] Diagnosis: Tinea cruris[ICD10: B35.6] Diagnosis: Abnormal levels of other serum enzymes[ICD10: R74.8] Shahida Goldman MD, [facility] CPT-4: 23001 06/11/2015 ([id number]) 51112 EST. PATIENT, LEVEL IV Diagnosis: ESSENTIAL HYPERTENSION[ICD9: 401.9] Diagnosis: Hypothyroid[ICD9: 244.9] Diagnosis: ALLERGIC RHINITIS[ICD9: 477.9] Diagnosis: Anxiety[ICD9: 300.00] Diagnosis: Sleep apnea[ICD9: 780.57] Shahida Goldman MD, [facility] CPT-4: 45690 03/19/2015 ([id number]) 48408 EST. PATIENT, LEVEL III Diagnosis: ACUTE SINUSITIS[ICD9: 461.9] Celi Goldman MD, [facility] CPT-4: 77999 01/07/2015 ([id number]) 45266 EST. PATIENT, LEVEL III Diagnosis: Conjunctivitis[ICD9: 372.30] Shahida Goldman MD, [facility] CPT-4: 84597 09/23/2014 19505 EST. PATIENT, LEVEL II Diagnosis: Noninfected skin tear of leg[ICD9: 891.0] Shahida Goldman MD, [facility] CPT-4: 68371 08/05/2014 ([id number]) 26275 EST. PATIENT, LEVEL III Diagnosis: Chronic maxillary sinusitis[ICD9: 473.0] Shahida Goldman MD, [facility] CPT-4: 98462 06/23/2014 73934 EST. PATIENT, LEVEL II Diagnosis: Headache[ICD9: 784.0] Shahida Goldman MD, [facility] CPT-4: 17833 06/05/2014 ([id number]) 57106 EST. PATIENT, LEVEL III Diagnosis: Abrasion of right leg[ICD9: 916.0] Diagnosis: Headache[ICD9: 784.0] Diagnosis: ALLERGIC RHINITIS[ICD9: 477.9] Shahida Goldman MD, [facility] CPT-4: 82192 04/03/2014 77508 EST. PATIENT, LEVEL II Diagnosis: Tinea corporis[ICD9: 110.5] Diagnosis: Exposure to scabies[ICD9: V01.89] Shahida Goldman MD, [facility] CPT- 4: 09949 03/07/2014 ([id number]) 87643 EST. PATIENT, LEVEL III Diagnosis: ESSENTIAL HYPERTENSION[SNOMED: 44174283] Diagnosis: OSTEOARTH NOS-UNSPEC[ICD9: 715.90] Diagnosis: Lumbago[ICD9: 724.2] Diagnosis: Cervicalgia[ICD9: 723.1] Shahida Goldman MD, [facility] CPT-4: 82687 11/21/2013 ([id number]) 87278 EST. PATIENT, LEVEL III Diagnosis: DEPRESSIVE DISORDER NEC[ICD9: 311] Diagnosis: Paronychia[ICD9: 681.9] Melba Goldman MD, [facility] CPT-4: 41041 09/24/2013 ([id number]) 17901 EST. PATIENT, LEVEL III Diagnosis: Paronychia[ICD9: 681.9] Diagnosis: Cellulitis[ICD9: 682.9] Melba Goldman MD, [facility] CPT-4: 97238 09/19/2013 ([id number]) 21201 EST. PATIENT, LEVEL III Diagnosis: Conjunctivitis[ICD9: 372.30] Diagnosis: Thrush[ICD9: 112.0] Shahida Goldman MD, [facility] CPT-4: 13400 08/05/2013 ([id number]) 82066 EST. PATIENT, LEVEL III Diagnosis: ACUTE MAXILLARY SINUSITIS[ICD9: 461.0] Diagnosis: COUGH[ICD9: 786.2] Diagnosis: Insomnia[ICD9: 780.52] Diagnosis: ESOPHAGEAL REFLUX[ICD9: 530.81] Melba Goldman MD [facility] CPT-4: 19272 07/10/2013 ([id number]) Miscellaneous no charge Diagnosis: ESSENTIAL HYPERTENSION[SNOMED: 29121444] Melba Goldman MD [facility] CPT-4: 13808 05/13/2013 ([id number]) 48784 EST. PATIENT, LEVEL IV Diagnosis: ESSENTIAL HYPERTENSION[SNOMED: 41427016] Diagnosis: HYPOTHYROIDISM[ICD9: 244.9] Diagnosis: OSTEOARTH NOS-UNSPEC[ICD9: 715.90] Melba Goldman MD [facility] CPT- 4: 86052 05/07/2013 ([id number]) 93559 EST. PATIENT, LEVEL IV Diagnosis: Osteoarthritis[ICD9: 715.90] Diagnosis: Knee pain, bilateral[ICD9: 719.46] Diagnosis: Hip pain[ICD9: 719.45] Melba Goldman MD [facility] CPT-4: 23805 12/03/2012 ([id number]) 87809 EST. PATIENT, LEVEL III Diagnosis: Thrush[ICD9: 112.0] Melba Goldman MD [facility] CPT-4: 72560 09/24/2012 ([id number]) 44727 EST. PATIENT, LEVEL IV Diagnosis: ESSENTIAL HYPERTENSION[SNOMED: 11186483] Diagnosis: Thrush[ICD9: 112.0] Diagnosis: Sleep apnea[ICD9: 780.57] Melba Goldman MD [facility] CPT-4: 23787 09/10/2012 ([id number]) 80620 EST. PATIENT, LEVEL IV Diagnosis: Esophageal reflux[ICD9: 530.81] Diagnosis: Hypothyroid[ICD9: 244.9] Diagnosis: JOINT PAIN-MULT JOINTS[ICD9: 719.49] Diagnosis: ALLERGIC RHINITIS[ICD9: 477.9] Melba Goldman MD [facility] CPT-4: 70416 08/08/2012 ([id number]) 82733 EST. PATIENT, LEVEL IV Diagnosis: Urinary frequency[ICD9: 788.41] Diagnosis: EDEMA[ICD9: 782.3] Diagnosis: HYPOTHYROIDISM[ICD9: 244.9] Diagnosis: Fatigue[ICD9: 780.79] Melba Goldman MD, [facility] CPT-4: 45391 02/15/2012 ([id number]) 75947 EST. PATIENT, LEVEL IV Diagnosis: Abdominal pain[ICD9: 789.00] Diagnosis: Fatigue[ICD9: 780.79] Diagnosis: Nausea[ICD9: 787.02] Melba Goldman MD, [facility] CPT-4: 43555 11/10/2011 63471 EST. PATIENT, LEVEL IV Diagnosis: ESSENTIAL HYPERTENSION[SNOMED: 80914024] Diagnosis: DIARRHEA[ICD9: 787.91] Diagnosis: DEPRESSIVE DISORDER NEC[ICD9: 311] Diagnosis: Irritable bowel disease[ICD9: 564.1] Melba Goldman MD, [facility] CPT- 4: 65425 08/01/2011 09290 EST. PATIENT, LEVEL III Diagnosis: ACUTE SINUSITIS[ICD9: 461.9] Diagnosis: Cough[ICD9: 786.2] Shahida Goldman MD, [facility] CPT-4: 35149 07/14/2011 31967 EST. PATIENT, LEVEL IV Diagnosis: VACCIN FOR INFLUENZA[ICD9: V04.81] Diagnosis: ESSENTIAL HYPERTENSION[SNOMED: 49715167] Diagnosis: GENERALIZED ANXIETY DISEASE[ICD9: 300.02] Diagnosis: SLEEP DISTURBANCES[ICD9: 780.50] Shahida Goldman MD, [facility] CPT- 4: 75105 05/23/2011 73939 EST. PATIENT, LEVEL III Diagnosis: ACUTE SINUSITIS[ICD9: 461.9] Diagnosis: ALLERGIC RHINITIS[ICD9: 477.9] Diagnosis: Cough[ICD9: 786.2] Shahida Goldman MD, [facility] CPT-4: 73787 05/03/2011 48834 EST. PATIENT, LEVEL IV Diagnosis: ESSENTIAL HYPERTENSION[SNOMED: 36916608] Diagnosis: DEPRESSIVE DISORDER NEC[ICD9: 311] Diagnosis: Fatigue[ICD9: 780.79] [facility] CPT-4: 57432 04/25/2011 Plan of Care Planned Activity Notes [...] call for acute concerns. Hyperlipidemia-check fasting labs Fgqhwsolpyzxvp-ghizhxo-yzask labs 10/30/2018 Visit Plan: Hypertension - uncontrolled [...] call for acute concerns. Hyperlipidemia-check fasting labs Btmomulfwtqvzk-vdsndfm-temay labs 10/30/2018 Appointment: Shahida Manzo WPtel: [phone] (30 min) Complex 10/30/2018 Patient Education: Patient Medication Summary Completed 10/30/2018 Visit Plan: Conjunctivitis - rx for eye drops/lube sent electronically to the patient's pharmacy. The patient has been instructed to cleanse affected eye with warm washcloth, then place medication into affected eye four times daily. 10/08/2018 Appointment: Shahida Manzo WPtel: [phone] (30 min) Complex 10/08/2018 Patient Education: Patient Medication Summary Completed 10/08/2018 Appointment: Isabelel Orozco WPtel: [id number] (15 min) Moderate 07/30/2018 Visit Plan: Anxiety [...] concerns. 07/16/2018 Appointment: Isabelle Orozco WPtel: [phone] [id number] (15 min) Moderate 07/16/2018 Patient Education: Patient [...] over-medication. 07/10/2018 Appointment: Shahida Manzo WPtel: [phone] [phone] (15 min) Moderate 07/10/2018 Patient Education: Patient Medication Summary Completed 07/10/2018 Patient Education: Back Pain Completed 07/10/2018 Visit Plan: Sinusitis - Pt has acute infection - pain in face, maxillary region, Pt informed to use decongestant, RX given to patient, sinus rinses also recommended. Call if symptoms do not show improvement. 05/28/2018 Appointment: Shahida Manzo WPtel: [phone] [phone] (30 min) Complex 05/28/2018 Patient Education: Patient [...] concerns. 02/07/2018 Appointment: Isabelle Orozco WPtel: [phone] [id number] (15 min) [facility] 02/07/2018 Patient Education: Patient Medication Summary Completed [...] less fatigue 01/19/2018 Appointment: Shahida Manzo WPtel: [facility]8 [phone] (15 min) Moderate 01/19/2018 Patient Education: Patient [...] care surrogate. 11/23/2017 Appointment: Isabelle Orozco WPtel[id number] [facility] - Annual Wellness Visit 11/23/2017 [...] improvement. 09/12/2017 Appointment: Isabelle Orozco WPtel: [phone] [facility] (15 min) Moderate 09/12/2017 Patient Education: [...] allergy spray. 07/25/2017 Appointment: Isabelle Orozco WPtel: [address] [facility] (30 min) Complex 07/25/2017 Patient Education: Patient [...] are available 06/27/2017 Appointment: Shahida Manzo WPtel: [facility] [place] [phone] (15 min) Moderate 06/27/2017 Patient Education: Patient [...] not improving. 05/08/2017 Appointment: Shahida Manzo WPtel: [address] [place], [place] [phone] (15 min) Moderate 05/08/2017 Patient Education: Patient [...] show improvement. 03/14/2017 Appointment: Shahida Manzo WPtel: [facility]5 [phone] [place] (15 min) Moderate 03/14/2017 Patient Education: Patient Medication Summary Completed 03/14/2017 Appointment: Shahida Manzo WPtel: [phone] [phone] [place] (15 min) Moderate 02/21/2017 Visit Plan: [...] not improving. 02/20/2017 Appointment: [phone] [place] (30 min) Complex 02/20/2017 Patient Education: [...] use 02/06/2017 Appointment: Melba Goldman WPtel: [phone] [facility] [place] (15 min) Moderate 02/06/2017 Patient [...] patient. 12/05/2016 Appointment: [facility]el[phone] [facility] 12/05/2016 Patient Education: Patient Medication Summary Completed 12/05/2016 Visit Plan: Sinusitis - Pt has acute infection - pain in face, maxillary region, Pt informed to use decongestant, RX given to patient, sinus rinses also recommended. Call if symptoms do not show improvement. Dysuria- culture urine 11/28/2016 Appointment: Shahida Manzo [facility]Ptel: [phone] (15 min) Moderate 11/28/2016 Patient Education: [...] of control. 11/07/2016 Appointment: Isabelle Orozco WPtel: [address] [place], [place] [address] [facility] - Annual Wellness Visit 11/07/2016 [...] spray. 08/15/2016 Appointment: Isabelle Orozco [facility]Ptel: [phone] (15 min) Moderate 08/15/2016 Patient Education: [...] pain use. 06/07/2016 Appointment: Shahida Manzo [facility]Ptel: [phone] (10 min) Simple 06/07/2016 Patient Education: [...] today 03/14/2016 Appointment: Shahida Manzo [facility]Ptel: [phone] [place] (15 min) Moderate 03/14/2016 Patient Education: Patient Medication Summary Completed 03/14/2016 Care Plan: COMPLETE CBC AUTOMATED LOINC : 25816-1 Pending 03/14/2016 Visit Plan: Cellulitis - The patient was instructed in appropriate wound care. The patient was instructed to use the antibiotic ointment as per RX. The patient is to call for any change in symptoms, increase in size of the lesion, increase in pain. 02/22/2016 Appointment: Isabelle Orozco WPtel: [facility] (15 min) Moderate 02/22/2016 Patient Education: [...] pt to follow up with specialist at [place] [address] states - she needs to pursue treatment. Anxietly - medications unchanged. colonoscopy with dr. dai 11/24/2015 Appointment: Melba Goldman [facility]Ptel: [phone] (30 min) Complex 11/24/2015 Patient Education: Patient Medication Summary Completed 11/24/2015 Patient Education: Obesity Completed 11/24/2015 Patient Education: Hypertension Completed 11/24/2015 Patient Education: .Cervicalgia Neck Pain Completed 11/24/2015 Care Plan: Referral Order SNOMED-CT : [id number] Ordered 11/24/2015 Visit Plan: Acute Migraine - [...] ALT-check labs today to monitor 06/11/2015 Appointment: JovanyShahida WPtel: [address] [place], [place] [phone] (15 min) Moderate 06/11/2015 Patient Education: Patient [...] OFFICE Sleep apnea-patient needs new CPAP-will contact [facility] patient 03/19/2015 Visit Plan: Hypertension - [...] Sleep apnea-patient needs new CPAP-will contact [facility] Pt reports that she uses her [...] Sleep apnea-patient needs new CPAP-will contact [facility] patient Pt reports that she uses her [...] 01/07/2015 Patient Education: [facility] - Saving AutoInj - 18+ - [...] areas dry Exposure to scabies-RX sent to [facility] pharmacy. 03/07/2014 Appointment: Melba Goldman WPtel: [phone] [place] rash 03/07/2014 Patient Education: Patient [...] change in blood pressure readings at home. Ouyqqny-upatuwbsaas-csbmkvkv duragesic patch-appt with Dr Ortiz for pain management 11/21/2013 Appointment: Shahida Manzo WPtel: [phone] Follow up 11/21/2013 Patient Education: Patient Medication Summary Completed 11/21/2013 Patient Education: Hypertension Completed 11/21/2013 Patient Education: .Cervicalgia Neck Pain Completed 11/21/2013 Appointment: Melba Goldman WPtel: [facility]5 [facility] Other 11/19/2013 Appointment: Melba Goldman WPtel: [address] [place], [place] [phone] Follow up 11/06/2013 Appointment: Melba Goldman WPtel: [facility]5 [facility] Lab Draw 10/15/2013 Patient [...] AT BEDTIME 09/24/2013 Appointment: Shahida Manzo WPtel: [facility]5 [facility] [place] [address] Other 09/24/2013 Patient Education: Patient Medication Summary Completed 09/24/2013 Visit Plan: Paronychia/Cellulitis - continue with oral antibiotics as previously directed, return to clinic as previously directed, call for acute change in symptoms, worsening redness, warmth, discharge. 09/19/2013 Appointment: Melba Goldman WPtel: [facility]5 [facility] Other 09/19/2013 Patient Education: Patient Medication Summary Completed 09/19/2013 Visit Plan: Conjunctivitis - rx for eye drops/lube sent electronically to the patient's pharmacy. The patient has been instructed to cleanse affected eye with warm washcloth, then place medication into affected eye four times daily. Thrush-refill nystatin-call if symptoms do not resolve 08/05/2013 Appointment: Shahida Manzo WPtel: [facility]5 [facility] Sick 08/05/2013 Patient Education: Patient Medication Summary [...] 06/03/2013 Appointment: Melba Goldman [facility]Ptel: [phone] Follow up 06/03/2013 Patient Education: Patient Medication Summary Completed 06/03/2013 Patient Education: Hypertension Completed 06/03/2013 Appointment: Mel[facility] Goldman [facility]Ptel: [phone] Nurse Visit 05/13/2013 Patient Education: Patient [...] 05/07/2013 Appointment: Melba Goldman [facility]Ptel: [phone] Follow up 05/07/2013 Patient Education: Patient Medication Summary Completed 05/07/2013 Patient Education: Hypertension Completed 05/07/2013 Patient Education: Patient Medication Summary Completed 04/30/2013 Patient Education: Hypertension Completed 04/30/2013 Visit Plan: Arthritis- occasionally uncontrolled symptoms- recommend pt to take antiinflammatory as directed for pain control. Use tylenol for break through pain symptoms. 12/03/2012 Appointment: Melba Goldman WPtel: [facility]5 [facility] Follow up 12/03/2012 Patient Education: Patient [...] not resolve 09/24/2012 Appointment: Shahida Manzo WPtel: [phone] [facility] 09/24/2012 Patient Education: Patient Medication [...] with diflucan 09/10/2012 Appointment: Melba Goldman WPtel: [facility]4 [facility] Follow up 09/10/2012 Patient Education: Patient [...] symptoms. 08/08/2012 Appointment: Shahida Manzo WPtel: [phone] Follow up 08/08/2012 Patient Education: Patient Medication Summary Completed 08/08/2012 Patient Education: Patient Medication Summary Completed 08/07/2012 Patient Education: Hypertension Completed 08/07/2012 Appointment: Melba Goldman WPtel: [phone] [place] Lab Draw 02/16/2012 Patient Education: [...] labs. 02/15/2012 Appointment: Melba Goldman WPtel: [phone] [facility] Other 02/15/2012 Patient Education: Patient Medication Summary Completed 02/15/2012 Visit Plan: Abdominal pain - ultrasound tomorrow AM nothing to eat before the ultrasound from 11pm tonight bland diet. Nausea - worse with fatty foods, recommended low fat/bland diet, call if symptoms worsening. 11/10/2011 Appointment: Logan Goldmany WPtel: [phone] [facility] Other 11/10/2011 Patient Education: [...] to bulk up the stools. 08/01/2011 Appointment: Susi Melba WPtel: [phone] [facility] Other 08/01/2011 Patient Education: Patient Medication Summary Completed 08/01/2011 Patient Education: High Blood Pressure: Essential Hypertension Completed 08/01/2011 Visit Plan: Sinusitis - Pt has acute infection - pain in face, maxillary region, Pt informed to use decongestant, RX given to patient, sinus rinses also recommended. Call if symptoms do not show improvement. Cough- tessalon pearles 07/14/2011 Appointment: Shahida Manzo WPtel: [address] [place] [address] Other 07/14/2011 Patient Education: Patient Medication Summary [...] the office. 05/23/2011 Appointment: Shahida Manzo WPtel: [address] [place] [address] Other 05/23/2011 Patient Education: Patient Medication Summary [...] cough med 05/03/2011 Appointment: Shahida Manzo WPtel: [facility]8 [place] [phone] Other 05/03/2011 Patient Education: Patient Medication Summary [...] her symptoms. 04/25/2011 Appointment: Shahida Manzo [facility]Ptel: [phone] Other 04/25/2011 Patient Education: Patient Medication Summary Completed 04/25/2011 Referral: Matthew Dai Referral Appointment Requested Referral: Matthew Dai Information faxed to Dr. Dai. Their office to book. Patient informed. Completed Instructions Comment LOSARTAN 50MG DAILY MONITOR BLOOD PRESSURE AND [...] call for acute concerns. Hyperlipidemia-check fasting labs Pitanjnlelaocw-iuhgixm-qihwx labs LOSARTAN 50MG DAILY MONITOR BLOOD PRESSURE [...] call for acute concerns. Hyperlipidemia-check fasting labs Yiaowyspzjayhu-npsnvqi-rwfbt labs . Hypertension - uncontrolled - the patient's [...] Call if symptoms do not show improvement. TAPER OFF OF CYMBALTA-TAKE EVERY OTHER DAY [...] Sleep apnea-patient needs new CPAP-will contact [facility] Pt reports that she uses her [...] tylenol for break through pain symptoms. . Paronychia/Cellulitis - continue with oral antibiotics [...] not show improvement. Gentamicin nasal spray to [facility] Increase prilosec to twice daily [...] areas dry [facility] scabies[facility] rocephin/kenalog . Sinusitis - Pt [...] diflucan Elevated ALT-check labs today to monitor increase bystolic to 15mg daily.. Hypertension - [...] if we can imrpove her symptoms. . Hypertension - well controlled - continue with current medications, continue with no added salt diet. Pt has been encouraged to exercise daily. The pt has been advised to call the office if there are any acute concerns about change in blood pressure readings at home. Vpebomg-hkqamvkvhao-ulvreiyr duragesic patch-appt with Dr Ortiz for pain [...]
--- OUTSIDE RECORDS SUMMARY | 2019-03-08 15:48 | XMS REPORT | CCD ---
Author Author [facility] Address [address] [place] [address] Phone Care Team Providers Care Subgrade Tester Name Role Phone PP Unavailable CCM Unavailable Summary Purpose Interface Exchange Insurance Providers Payer name Policy type / Coverage type Covered constitution party ID Effective Begin Date Effective End Date [employer] Medicare Part B [id number] Unknown Family history Son Diagnosis Age At Onset Crohn's disease Unknown Brother Diagnosis Age At Onset Cardiovascular disease Unknown Mother Diagnosis Age At Onset Hypertension Unknown Father Diagnosis Age At Onset Cardiovascular disease Unknown Social History Social History Element Codes Description Effective Dates Marital status Unknown 04/22/2011 Number of children Unknown 3 1 son -Crohns 04/22/[address]: 408112528 Nonsmoker 04/22/2011 Allergies, Adverse Reactions, Alerts Substance [...] Fill Instructions Synthroid 112 mcg tablet RxNorm: 314882 1 Tablet(s) PO daily 11/01/2018 04/29/2019 Active Brand name only! Dosage change! Synthroid 112 mcg tablet RxNorm: 593600 1 Tablet(s) PO daily 11/01/2018 10/31/2018 Inactive Brand name only! Dosage change! losartan 50 mg tablet RxNorm: 261354 1 Tablet(s) PO daily 10/30/2018 04/27/2019 Active Tamiflu 75 mg capsule RxNorm: 308140 1 Capsule(s) PO daily 10/30/2018 11/08/2018 Active Synthroid 100 mcg tablet RxNorm: 089605 1 Tablet(s) PO daily 10/30/2018 10/31/2018 Inactive Brand name only! Lexapro 20 mg tablet RxNorm: 196694 TAKE ONE AND ONE-HALF TABLET BY MOUTH DAILY 10/23/2018 10/17/2019 Active alprazolam 0.25 mg tablet RxNorm: 876868 1 Tablet(s) PO TID as needed 10/10/2018 01/07/2019 Active polymyxin B sulfate 10,000 unit-trimethoprim 1 mg/mL eye drops RxNorm: 814755 2 Drop(s) ophthalmic (eye) QID 10/08/2018 10/14/2018 Inactive hydrocodone 10 mg-acetaminophen 325 mg tablet RxNorm: 217164 Tablet(s) PO TAKE ONE TO TWO TABLETS BY MOUTH EVERY 6 HOURS NEEDED FOR PAIN 09/11/2018 09/25/2018 Inactive piroxicam 20 mg capsule RxNorm: 829590 TAKE ONE CAPSULE BY MOUTH DAILY 08/09/2018 01/05/2019 Active trazodone 50 mg tablet RxNorm: 747645 TAKE ONE AND ONE-HALF (1 1/2) TABLET BY MOUTH AT BEDTIME. MAY INCREASE TO 2 TABLETS AT BEDTIME NEEDED 08/02/2018 11/19/2018 Active Nexium 40 mg capsule,delayed release RxNorm: 518240 TAKE ONE CAPSULE BY MOUTH TWICE A DAY 07/23/2018 11/19/2018 Active Bystolic 5 mg tablet RxNorm: 726415 1 Tablet(s) PO daily to take with 10 mg daily to equal 15mg daily 07/17/2018 10/29/2018 Inactive alprazolam 0.25 mg tablet RxNorm: 550579 1 Tablet(s) PO TID as needed 07/16/2018 10/29/2018 Inactive hydrocodone 10 mg-acetaminophen 325 mg tablet RxNorm: 714832 Tablet(s) PO TAKE ONE TO TWO TABLETS BY MOUTH EVERY 6 HOURS NEEDED FOR PAIN 07/10/2018 07/24/2018 Inactive prednisone 20 mg tablet RxNorm: 588042 1 Tablet(s) PO BID 07/10/2018 07/14/2018 Inactive Phenergan with Codeine Syrup RxNorm: 5-10 Milliliter(s) PO Q6 PRN 06/28/2018 No Stop Date Active prednisone 20 mg tablet RxNorm: 491801 2 Tablet(s) PO daily 05/31/2018 06/04/2018 Inactive prednisone 20 mg tablet RxNorm: 800645 2 Tablet(s) PO daily 05/31/2018 05/30/2018 Inactive ceftriaxone 500 mg solution for injection RxNorm: 8548092 Inj 05/28/2018 05/28/2018 Inactive doxycycline hyclate 100 mg tablet RxNorm: 1249811 1 Tablet(s) PO BID 05/28/2018 06/06/2018 Inactive Kenalog 40 mg/mL suspension for injection RxNorm: 6723949 Milliliter(s) Inj 05/28/2018 05/28/2018 Inactive hydrocodone 10 mg-acetaminophen 325 mg tablet RxNorm: 784683 Tablet(s) PO TAKE ONE TO TWO TABLETS BY MOUTH EVERY 6 HOURS NEEDED FOR PAIN 05/09/2018 05/23/2018 Inactive alprazolam 0.25 mg tablet RxNorm: 771409 1 Tablet(s) PO daily as needed 04/25/2018 07/15/2018 Inactive Bystolic 10 mg tablet RxNorm: 005309 TAKE ONE TABLET BY MOUTH DAILY 04/16/2018 09/12/2018 Inactive hydrocodone 10 mg-acetaminophen 325 mg tablet RxNorm: 037063 Tablet(s) PO TAKE ONE TO TWO TABLETS BY MOUTH EVERY 6 HOURS NEEDED FOR PAIN 03/06/2018 03/20/2018 Inactive trazodone 50 mg tablet RxNorm: 587474 TAKE ONE AND ONE-HALF (1 1/2) TABLET BY MOUTH AT BEDTIME. MAY INCREASE TO 2 TABLETS AT BEDTIME NEEDED 02/23/2018 06/12/2018 Inactive mupirocin 2 % topical ointment RxNorm: 180076 1 TOP BID 02/09/2018 05/27/2018 Inactive Zofran 4 mg tablet RxNorm: 315860 1 Tablet(s) PO TID as needed 02/08/2018 No Stop Date Active Keflex 500 mg capsule RxNorm: 831095 1 Capsule(s) PO TID 02/07/2018 02/13/2018 Inactive alprazolam 0.25 mg tablet RxNorm: 424031 1 Tablet(s) PO daily as needed 01/24/2018 07/09/2018 Inactive hydrocodone 10 mg-acetaminophen 325 mg tablet RxNorm: 233585 Tablet(s) PO TAKE ONE TO TWO TABLETS BY MOUTH EVERY 6 HOURS NEEDED FOR PAIN 01/19/2018 02/02/2018 Inactive hydrochlorothiazide 25 mg tablet RxNorm: 975525 Tablet(s) TAKE ONE TABLET BY MOUTH DAILY 01/19/2018 01/19/2018 Inactive Kenalog 40 mg/mL suspension for injection RxNorm: 5482028 1 Milliliter(s) Inj 01/19/2018 01/19/2018 Inactive piroxicam 20 mg capsule RxNorm: 564000 1 Capsule(s) PO daily 01/19/2018 07/17/2018 Inactive D/C ORDER FOR HCTZ ceftriaxone 500 mg solution for injection RxNorm: 2674614 500 Milligram(s) Inj 01/19/2018 01/19/2018 Inactive Nexium 40 mg capsule,delayed release RxNorm: 504309 TAKE ONE CAPSULE BY MOUTH TWICE A DAY 01/18/2018 04/17/2018 Inactive Nexium 40 mg capsule,delayed release RxNorm: 946123 TAKE ONE CAPSULE BY MOUTH TWICE A DAY 01/15/2018 04/14/2018 Inactive ciprofloxacin 0.3 % eye drops RxNorm: 448612 2 Drop(s) ophthalmic (eye) Q2H while awake x 2 days, then Q4H x 5 days 11/23/2017 05/27/2018 Inactive Keflex 500 mg capsule RxNorm: 840964 1 Capsule(s) PO TID 11/23/2017 11/29/2017 Inactive hydrocodone 10 mg-acetaminophen 325 mg tablet RxNorm: 120633 Tablet(s) PO TAKE ONE TO TWO TABLETS BY MOUTH EVERY 6 HOURS NEEDED FOR PAIN 10/30/2017 11/13/2017 Inactive Augmentin 500 mg-125 mg tablet RxNorm: 550540 1 Tablet(s) PO TID 10/27/2017 11/05/2017 Inactive alprazolam 0.25 mg tablet RxNorm: 549526 1 Tablet(s) PO daily as needed 10/26/2017 04/24/2018 Inactive trazodone 50 mg tablet RxNorm: 513957 TAKE ONE AND ONE-HALF (1 1/2) TABLET BY MOUTH AT BEDTIME. MAY INCREASE TO 2 TABLETS AT BEDTIME NEEDED 09/25/2017 02/03/2018 Inactive Lexapro 20 mg tablet RxNorm: 477327 TAKE ONE AND ONE-HALF TABLET BY MOUTH DAILY 09/15/2017 09/09/2018 Inactive Flagyl 500 mg tablet RxNorm: 959435 1 Tablet(s) PO TID 09/12/2017 09/21/2017 Inactive promethazine 25 mg tablet RxNorm: 103151 1 Tablet(s) PO TID as needed nausea and vomitting THIS WILL MAKE YOU SLEEPY 09/12/2017 11/08/2017 Inactive Keflex 500 mg capsule RxNorm: 085640 1 Capsule(s) PO QID 08/25/2017 08/31/2017 Inactive [SAVINGS FOR UNINSURED PATIENTS -- BIN:[id number], PCN: [id number], Group: [id number], ID# [id number], Process claim through [employer], for questions: . THIS IS NOT INSURANCE.] alprazolam 0.25 mg tablet RxNorm: 188050 1 Tablet(s) PO daily as needed 07/31/2017 04/24/2018 Inactive prednisone 20 mg tablet RxNorm: 171457 2 Tablet(s) PO daily 07/25/2017 07/29/2017 Inactive Augmentin 500 mg-125 mg tablet RxNorm: 266767 1 Tablet(s) PO TID 07/25/2017 08/03/2017 Inactive trazodone 50 mg tablet RxNorm: 298068 TAKE ONE AND ONE-HALF (1 1/2) TABLET BY MOUTH AT BEDTIME. MAY INCREASE TO 2 TABLETS AT BEDTIME NEEDED 06/30/2017 09/03/2017 Inactive Bystolic 10 mg tablet RxNorm: 342513 TAKE ONE TABLET BY MOUTH DAILY 06/30/2017 2017 Inactive hydrochlorothiazide 25 mg tablet RxNorm: 344519 TAKE ONE TABLET BY MOUTH DAILY 06/30/2017 01/18/2018 Inactive Flagyl 500 mg tablet RxNorm: 230726 1 Tablet(s) PO TID 06/27/2017 07/03/2017 Inactive Phenergan with Codeine Syrup RxNorm: 5-10 Milliliter(s) PO Q6 PRN 06/27/2017 11/15/2017 Inactive Levaquin 500 mg tablet RxNorm: 433083 1 Tablet(s) PO daily 06/27/2017 07/03/2017 Inactive Kenalog 40 mg/mL suspension for injection RxNorm: 3993137 1 Milliliter(s) Inj 06/27/2017 06/27/2017 Inactive Nexium 40 mg capsule,delayed release RxNorm: 669598 1 Capsule(s) PO BID TAKE ONE CAPSULE BY MOUTH BID 05/22/2017 09/18/2017 Inactive Nexium 40 mg capsule,delayed release RxNorm: 994948 1 Capsule(s) PO BID TAKE ONE CAPSULE BY MOUTH BID 05/22/2017 05/21/2017 Inactive hydrocodone 10 mg-acetaminophen 325 mg tablet RxNorm: 864213 Tablet(s) PO TAKE ONE TO TWO TABLETS BY MOUTH EVERY 6 HOURS NEEDED FOR PAIN 05/17/2017 06/15/2017 Inactive Nexium 40 mg capsule,delayed release RxNorm: 895149 Capsule(s) TAKE ONE CAPSULE BY MOUTH BID 05/17/2017 05/21/2017 Inactive alprazolam 0.25 mg tablet RxNorm: 482980 1 Tablet(s) PO daily as needed 05/03/2017 07/01/2017 Inactive Levaquin 500 mg tablet RxNorm: 030563 1 Tablet(s) PO daily 04/20/2017 04/26/2017 Inactive clotrimazole 1 % topical cream RxNorm: 423563 1 Application TOP BID 04/20/2017 11/07/2017 Inactive Kenalog 40 mg/mL suspension for injection RxNorm: 8750863 Milliliter(s) Inj 04/20/2017 04/20/2017 Inactive nystatin 100,000 unit/gram topical powder RxNorm: 795581 1 Gram(s) APPLY TOPICALLY TWO TIMES A DAY 04/10/2017 07/08/2017 Inactive trazodone 50 mg tablet RxNorm: 884985 TAKE ONE AND ONE-HALF (1 1/2) TABLET BY MOUTH AT BEDTIME. MAY INCREASE TO 2 TABLETS AT BEDTIME NEEDED 03/28/2017 06/23/2017 Inactive Augmentin 875 mg-125 mg tablet RxNorm: 085189 1 Tablet(s) PO BID 03/14/2017 03/20/2017 Inactive Kenalog 40 mg/mL suspension for injection RxNorm: 1515714 1 Milliliter(s) Inj 03/14/2017 03/14/2017 Inactive Lexapro 20 mg tablet RxNorm: 882122 1.5 Tablet(s) PO daily 03/08/2017 03/07/2017 Inactive Lexapro 20 mg tablet RxNorm: 931317 1.5 Tablet(s) PO daily 03/08/2017 07/05/2017 Inactive alprazolam 0.25 mg tablet RxNorm: 434094 1 Tablet(s) PO daily as needed 02/23/2017 04/23/2017 Inactive (Response to an electronic controlled substance refill request - RxReferenceNumber: [id number]) Flagyl 500 mg tablet RxNorm: 546562 1 Tablet(s) PO TID 02/20/2017 03/01/2017 Inactive promethazine 25 mg tablet RxNorm: 321048 1 Tablet(s) PO TID as needed nausea 02/20/2017 03/01/2017 Inactive Cipro 500 mg tablet RxNorm: 026483 1 Tablet(s) PO BID 02/20/2017 03/01/2017 Inactive Flagyl 500 mg tablet RxNorm: 264611 1 Tablet(s) PO TID 02/09/2017 02/15/2017 Inactive Trintellix 10 mg tablet RxNorm: 2506248 1 Tablet(s) PO QAM 02/06/2017 03/07/2017 Inactive Efudex 5 % topical cream RxNorm: 442870 1 Application TOP BID use on skin spot on nose 02/06/2017 02/15/2017 Inactive Bystolic 10 mg tablet RxNorm: 410067 TAKE ONE TABLET BY MOUTH DAILY 02/03/2017 06/02/2017 Inactive Imitrex 50 mg tablet RxNorm: 310936 TAKE ONE TABLET BY MOUTH EVERY 8 HOURS NEEDED MAY REPEAT IN 1 HOUR OF INITIAL DOSE. DISCONTINUE FIORICET 12/22/2016 02/19/2017 Inactive Nexium 40 mg capsule,delayed release RxNorm: 919223 TAKE ONE CAPSULE BY MOUTH EVERY DAY 12/21/2016 05/16/2017 Inactive Lexapro 20 mg tablet RxNorm: 080256 Tablet(s) TAKE ONE TABLET BY MOUTH DAILY 12/05/2016 02/05/2017 Inactive Augmentin 875 mg-125 mg tablet RxNorm: 544192 1 Tablet(s) PO BID 11/28/2016 12/04/2016 Inactive ceftriaxone 500 mg solution for injection RxNorm: 5371214 1 Milliliter(s) Inj 11/28/2016 11/28/2016 Inactive hydrocodone 10 mg-acetaminophen 325 mg tablet RxNorm: 646287 Tablet(s) PO TAKE ONE TO TWO TABLETS BY MOUTH EVERY 6 HOURS NEEDED FOR PAIN 11/28/2016 05/16/2017 Inactive (Appended: Controlled substance eRx refill - RxReferenceNumber: [id number]) prednisone 20 mg tablet RxNorm: 138718 2 Tablet(s) PO daily 11/28/2016 12/02/2016 Inactive trazodone 50 mg tablet RxNorm: 585002 Tablet(s) TAKE 1 AND 1/2 TABLETS EVERY NIGHT AT BEDTIME , MAY INCREASE TO 2 TABLETS AT BEDTIME NEEDED 11/21/2016 11/20/2016 Inactive Synthroid 100 mcg tablet RxNorm: 417971 1 Tablet(s) PO daily 11/21/2016 05/19/2017 Inactive Brand name only! trazodone 50 mg tablet RxNorm: 094678 TAKE 1 AND 1/2 TABLETS EVERY NIGHT AT BEDTIME , MAY INCREASE TO 2 TABLETS AT BEDTIME NEEDED 11/21/2016 08/01/2018 Inactive Synthroid 100 mcg tablet RxNorm: 323353 1 Tablet(s) PO daily TAKE ONE TABLET BY MOUTH DAILY 11/08/2016 11/20/2016 Inactive ceftriaxone 500 mg solution for injection RxNorm: 3981186 Inj 11/07/2016 11/07/2016 Inactive Kenalog 40 mg/mL suspension for injection RxNorm: 4838017 Milliliter(s) Inj 11/07/2016 11/07/2016 Inactive Xanax 0.25 mg tablet RxNorm: 284410 1 Tablet(s) PO daily as needed 10/31/2016 05/02/2017 Inactive alprazolam 0.25 mg tablet RxNorm: 942089 1 Tablet(s) PO daily as needed 10/21/2016 12/18/2016 Inactive (Response to an electronic controlled substance refill request - RxReferenceNumber: [id number]) hydrochlorothiazide 25 mg tablet RxNorm: 666243 TAKE ONE TABLET BY MOUTH DAILY 10/11/2016 04/08/2017 Inactive Xanax 0.25 mg tablet RxNorm: 248381 1 Tablet(s) PO daily as needed 08/23/2016 10/19/2016 Inactive Flonase Allergy Relief 50 mcg/actuation nasal spray,suspension RxNorm: 8153655 1 [place] NASAL daily 08/15/2016 No Stop Date Active amoxicillin 500 mg capsule RxNorm: 602848 1 Capsule(s) PO TID 08/15/2016 08/24/2016 Inactive Bystolic 10 mg tablet RxNorm: 571515 TAKE ONE TABLET BY MOUTH DAILY 08/01/2016 12/28/2016 Inactive trazodone 50 mg tablet RxNorm: 654403 TAKE 1 AND 1/2 TABLETS EVERY NIGHT AT BEDTIME , MAY INCREASE TO 2 TABLETS AT BEDTIME NEEDED 07/25/2016 11/11/2016 Inactive alprazolam 0.25 mg tablet RxNorm: 146968 1 Tablet(s) PO daily as needed 07/25/2016 08/22/2016 Inactive (Response to an electronic controlled substance refill request - RxReferenceNumber: [id number]) Imitrex 50 mg tablet RxNorm: 101384 1 Tablet(s) PO Q8 as needed may repeat x1 dose in 1 hour of inital dose. 07/13/2016 No Stop Date Active Lexapro 20 mg tablet RxNorm: 339800 TAKE 1/2 TABLET BY MOUTH DAILY FOR 10 DAYS, THEN TAKE ONE TABLET BY MOUTH DAILY 06/27/2016 11/23/2016 Inactive Synthroid 100 mcg tablet RxNorm: 508031 TAKE ONE TABLET BY MOUTH DAILY 06/20/2016 11/07/2016 Inactive Augmentin 500 mg-125 mg tablet RxNorm: 456527 1 Tablet(s) PO TID 06/07/2016 06/13/2016 Inactive hydrocodone 10 mg-acetaminophen 325 mg tablet RxNorm: 191751 Tablet(s) PO TAKE ONE TO TWO TABLETS BY MOUTH EVERY 6 HOURS NEEDED FOR PAIN 06/07/2016 11/27/2016 Inactive (Appended: Controlled substance eRx refill - RxReferenceNumber: [id number]) hydrochlorothiazide 25 mg tablet RxNorm: 201749 TAKE ONE TABLET BY MOUTH DAILY 03/14/2016 09/09/2016 Inactive Edarbi 40 mg tablet RxNorm: 1864657 1 Tablet(s) PO daily 03/14/2016 06/06/2016 Inactive trazodone 50 mg tablet RxNorm: 434060 Tablet(s) TAKE 1 AND 1/2 TABLET AT BEDTIME. MAY INCREASE TO 2 TABLETS IF NECESSARY 02/25/2016 07/05/2016 Inactive Imitrex 50 mg tablet RxNorm: 850906 1 Tablet(s) PO Q8 as needed may repeat x1 dose in 1 hour of inital dose. 02/25/2016 07/12/2016 Inactive dc fioricet Xanax 0.25 mg tablet RxNorm: 832763 1 Tablet(s) PO daily as needed 02/24/2016 07/21/2016 Inactive mupirocin 2 % topical ointment RxNorm: 940285 1 TOP BID 02/22/2016 11/08/2017 Inactive Bactrim DS 800 mg-160 mg tablet RxNorm: 936576 1 Tablet(s) PO BID 02/22/2016 03/02/2016 Inactive Fioricet 50 mg-325 mg-40 mg tablet RxNorm: 194595 Tablet(s) TAKE ONE TABLET BY MOUTH EVERY 4 HOURS NEEDED FOR headache 02/12/2016 02/24/2016 Inactive (Response to an electronic controlled substance refill request - RxReferenceNumber: [id number]) Fioricet 50 mg-325 mg-40 mg tablet RxNorm: 623296 Tablet(s) TAKE ONE TABLET BY MOUTH EVERY 4 HOURS NEEDED FOR headache 02/12/2016 02/11/2016 Inactive (Response to an electronic controlled substance refill request - RxReferenceNumber: [id number]) Nexium 40 mg capsule,delayed release RxNorm: 248841 TAKE ONE CAPSULE BY MOUTH EVERY DAY 02/01/2016 10/27/2016 Inactive Bystolic 10 mg tablet RxNorm: 520171 Tablet(s) TAKE ONE TABLET BY MOUTH DAILY 01/06/2016 07/03/2016 Inactive Xanax 0.25 mg tablet RxNorm: 568699 1 Tablet(s) PO daily as needed 12/28/2015 02/23/2016 Inactive Levaquin 500 mg tablet RxNorm: 229130 1 Tablet(s) PO daily take a probiotic daily 12/14/2015 02/11/2016 Inactive Levaquin 500 mg tablet RxNorm: 268688 1 Tablet(s) PO daily take a probiotic daily 12/14/2015 12/13/2015 Inactive prednisone 20 mg tablet RxNorm: 114894 1 Tablet(s) PO BID 12/07/2015 12/13/2015 Inactive Augmentin 875 mg-125 mg tablet RxNorm: 513304 1 Tablet(s) PO BID 12/07/2015 12/13/2015 Inactive ceftriaxone 500 mg solution for injection RxNorm: 4450249 Inj 12/07/2015 12/07/2015 Inactive Phenergan with Codeine Syrup RxNorm: 5-10 Milliliter(s) PO Q6 PRN 12/07/2015 06/26/2017 Inactive alprazolam 0.25 mg tablet RxNorm: 286897 1 Tablet(s) PO daily as needed 11/27/2015 12/25/2015 Inactive (Response to an electronic controlled substance refill request - RxReferenceNumber: [id number]) trazodone 50 mg tablet RxNorm: 243035 TAKE 1 AND 1/2 TABLET AT BEDTIME FOR 2 WEEKS, MAY INCREASE TO 2 TABLETS IF NECESSARY AFTER THAT 11/26/2015 02/24/2016 Inactive ceftriaxone 500 mg solution for injection RxNorm: 5206311 Milliliter(s) Inj 11/24/2015 11/24/2015 Inactive prednisone 10 mg tablet RxNorm: 842388 3 Tablet(s) PO daily 11/24/2015 11/28/2015 Inactive cefdinir 300 mg capsule RxNorm: 115068 1 Capsule(s) PO BID 11/24/2015 11/30/2015 Inactive Kenalog 40 mg/mL suspension for injection RxNorm: 6852712 1 Milliliter(s) Inj 11/24/2015 11/24/2015 Inactive Lexapro 20 mg tablet RxNorm: 739639 TAKE 1/2 TABLET BY MOUTH DAILY FOR 10 DAYS, THEN TAKE ONE TABLET BY MOUTH DAILY 11/23/2015 05/20/2016 Inactive Lipitor 10 mg tablet RxNorm: 863756 Tablet(s) TAKE ONE TABLET BY MOUTH EVERY DAY 10/26/2015 11/06/2016 Inactive Norvasc 10 mg tablet RxNorm: 088548 Tablet(s) PO TAKE ONE TABLET BY MOUTH EVERY DAY 10/26/2015 01/18/2018 Inactive hydrochlorothiazide 25 mg tablet RxNorm: 208864 TAKE ONE TABLET BY MOUTH DAILY 10/20/2015 01/17/2016 Inactive promethazine 25 mg/mL injection solution RxNorm: 903089 Milliliter(s) Inj 08/27/2015 08/27/2015 Inactive ketorolac 60 mg/2 mL intramuscular solution RxNorm: 838679 Milliliter(s) IM 08/27/2015 08/27/2015 Inactive alprazolam 0.25 mg tablet RxNorm: 801360 1 Tablet(s) PO daily as needed 08/27/2015 10/25/2017 Inactive (Response to an electronic controlled substance refill request - RxReferenceNumber: [id number]) Lexapro 20 mg tablet RxNorm: 280703 TAKE 1/2 TABLET BY MOUTH DAILY FOR 10 DAYS, THEN TAKE ONE TABLET BY MOUTH DAILY 08/13/2015 11/10/2015 Inactive Flonase 50 mcg/actuation nasal spray,suspension RxNorm: 162013 PLACE 1 SPRAY IN EACH NOSTRIL DAILY 08/13/2015 02/08/2016 Inactive Augmentin 500 mg-125 mg tablet RxNorm: 962668 1 Tablet(s) PO TID 08/10/2015 08/16/2015 Inactive Kenalog 40 mg/mL suspension for injection RxNorm: 1322801 Milliliter(s) Inj 08/10/2015 08/10/2015 Inactive ceftriaxone 500 mg solution for injection RxNorm: 8982358 Inj 08/10/2015 08/10/2015 Inactive nystatin 100,000 unit/mL oral suspension RxNorm: 234614 4 Milliliter(s) PO QID 08/10/2015 08/16/2015 Inactive trazodone 50 mg tablet RxNorm: 068559 TAKE 1 AND 1/2 TABLET AT BEDTIME FOR 2 WEEKS, MAY INCREASE TO 2 TABLETS IF NECESSARY AFTER THAT 07/31/2015 11/25/2015 Inactive ceftriaxone 500 mg solution for injection RxNorm: 4213960 1 Milliliter(s) Inj 07/28/2015 07/28/2015 Inactive Bactrim DS 800 mg-160 mg tablet RxNorm: 548392 1 Tablet(s) PO BID 07/28/2015 08/06/2015 Inactive Bactroban 2 % topical ointment RxNorm: 309922 1 Application TOP BID 07/28/2015 08/06/2015 Inactive Diflucan 150 mg tablet RxNorm: 790296 1 Tablet(s) PO daily 06/11/2015 06/17/2015 Inactive clotrimazole 1 % topical cream RxNorm: 514239 1 Application TOP BID 06/11/2015 07/10/2015 Inactive Bystolic 10 mg tablet RxNorm: 041112 TAKE ONE TABLET BY MOUTH DAILY 06/08/2015 12/04/2015 Inactive alprazolam 0.25 mg tablet RxNorm: 792559 1 Tablet(s) PO daily as needed 06/01/2015 08/25/2015 Inactive (Response to an electronic controlled substance refill request - RxReferenceNumber: [id number]) Fioricet 50 mg-325 mg-40 mg tablet RxNorm: 091341 Tablet(s) TAKE ONE TABLET BY MOUTH EVERY 4 HOURS NEEDED FOR headache 05/28/2015 06/08/2015 Inactive (Response to an electronic controlled substance refill request - RxReferenceNumber: [id number]) trazodone 50 mg tablet RxNorm: 695066 TAKE 1 AND 1/2 TABLET AT BEDTIME FOR 2 WEEKS, MAY INCREASE TO 2 TABLETS IF NECESSARY AFTER THAT 05/25/2015 08/22/2015 Inactive trazodone 50 mg tablet RxNorm: 562380 TAKE 1 AND 1/2 TABLET AT BEDTIME FOR 2 WEEKS, MAY INCREASE TO 2 TABLETS IF NECESSARY AFTER THAT 05/25/2015 05/24/2015 Inactive Synthroid 100 mcg tablet RxNorm: 080858 TAKE ONE TABLET BY MOUTH DAILY 04/23/2015 01/17/2016 Inactive Lipitor 10 mg tablet RxNorm: 612451 TAKE ONE TABLET BY MOUTH EVERY DAY 04/23/2015 10/25/2015 Inactive Kenalog 40 mg/mL suspension for injection RxNorm: 9873298 Milliliter(s) Inj 03/19/2015 03/19/2015 Inactive Lexapro 20 mg tablet RxNorm: 273952 1 Tablet(s) PO daily 03/19/2015 07/16/2015 Inactive 1/2 tab daily x 10 days then 1 tab daily hydrocodone 10 mg-acetaminophen 325 mg tablet RxNorm: 341933 Tablet(s) PO TAKE ONE TO TWO TABLETS BY MOUTH EVERY 6 HOURS NEEDED FOR PAIN 03/19/2015 06/06/2016 Inactive (Appended: Controlled substance eRx refill - RxReferenceNumber: [id number]) Carafate 1 gram tablet RxNorm: 245456 1 Tablet(s) PO AC & HS 03/19/2015 06/16/2015 Inactive dissolve in water and take as a slurry hydrochlorothiazide 25 mg tablet RxNorm: 373918 1 Tablet(s) PO daily 03/12/2015 09/07/2015 Inactive Nexium 40 mg capsule,delayed release RxNorm: 382675 TAKE ONE CAPSULE BY MOUTH EVERY DAY 02/26/2015 12/22/2015 Inactive Cymbalta 60 mg capsule,delayed release RxNorm: 921695 TAKE ONE CAPSULE BY MOUTH TWICE A DAY 02/23/2015 03/18/2015 Inactive alprazolam 0.25 mg tablet RxNorm: 645510 1 Tablet(s) PO daily as needed 02/11/2015 05/10/2015 Inactive (Response to an electronic controlled substance refill request - RxReferenceNumber: [id number]) trazodone 50 mg tablet RxNorm: 088384 TAKE 1 AND 1/2 TABLET AT BEDTIME FOR 2 WEEKS, MAY INCREASE TO 2 TABLETS IF NECESSARY AFTER THAT 01/27/2015 05/24/2015 Inactive Augmentin 500 mg-125 mg tablet RxNorm: 531829 1 Tablet(s) PO TID 01/07/2015 01/13/2015 Inactive gentamicin 0.3 % eye drops RxNorm: 621805 3 Drop(s) OPH QID 01/07/2015 01/13/2015 Inactive [AttnRPh: Saving apply/adjudicate RxGRP:[id number] RxBIN:[id number] RxPCN: ID#:[id number]] scopolamine 1.5 mg transdermal 72 hour patch RxNorm: 949720 1 Patch TD q72 hours 01/07/2015 11/23/2015 Inactive Synthroid 100 mcg tablet RxNorm: 212637 TAKE ONE TABLET BY MOUTH ONCE A DAY 01/06/2015 04/22/2015 Inactive nystatin 100,000 unit/gram topical powder RxNorm: 555184 APPLY TOPICALLY TWO TIMES A DAY 12/18/2014 03/17/2015 Inactive alprazolam 0.25 mg tablet RxNorm: 623233 TAKE ONE TABLET BY MOUTH DAILY NEEDED 10/30/2014 11/28/2014 Inactive (Response to an electronic controlled substance refill request - RxReferenceNumber: [id number]) alprazolam 0.25 mg tablet RxNorm: 080930 Tablet(s) TAKE ONE TABLET BY MOUTH DAILY 10/30/2014 10/29/2014 Inactive (Response to an electronic controlled substance refill request - RxReferenceNumber: [id number]) Lipitor 10 mg tablet RxNorm: 856255 TAKE ONE TABLET BY MOUTH EVERY DAY 10/30/2014 02/26/2015 Inactive alprazolam 0.25 mg tablet RxNorm: 434977 TAKE ONE TABLET BY MOUTH DAILY 10/07/2014 10/29/2014 Inactive (Response to an electronic controlled substance refill request - RxReferenceNumber: [id number]) alprazolam 0.25 mg tablet RxNorm: 607062 TAKE ONE TABLET BY MOUTH DAILY 10/06/2014 10/07/2014 Inactive (Response to an electronic controlled substance refill request - RxReferenceNumber: [id number]) alprazolam 0.25 mg tablet RxNorm: 494825 Tablet(s) TAKE ONE TABLET BY MOUTH EVERY DAY NEEDED 09/30/2014 10/06/2014 Inactive (Response to an electronic controlled substance refill request - RxReferenceNumber: [id number]) Fioricet 50 mg-325 mg-40 mg tablet RxNorm: 979187 Tablet(s) TAKE ONE TABLET BY MOUTH EVERY 4 HOURS NEEDED FOR headache 09/29/2014 10/12/2014 Inactive (Response to an electronic controlled substance refill request - RxReferenceNumber: [id number]) Bystolic 10 mg tablet RxNorm: 990484 1 Tablet(s) PO daily TAKE ONE TABLET BY MOUTH EVERY DAY 09/29/2014 04/26/2015 Inactive Bystolic 5 mg tablet RxNorm: 942940 TAKE 1 AND 1/2 TABLETS ONCE DAILY 09/24/2014 09/23/2014 Inactive Bystolic 5 mg tablet RxNorm: 856709 Tablet(s) TAKE 1 AND 1/2 TABLETS ONCE DAILY 09/24/2014 09/18/2015 Inactive gentamicin 0.3 % eye drops RxNorm: 563844 3 Drop(s) OPH QID 09/23/2014 09/29/2014 Inactive trazodone 50 mg tablet RxNorm: 117691 TAKE 1 AND 1/2 TABLET AT BEDTIME FOR 2 WEEKS, MAY INCREASE TO 2 TABLETS IF NECESSARY AFTER THAT 09/22/2014 01/26/2015 Inactive Fioricet 50 mg-325 mg-40 mg tablet RxNorm: 067832 TAKE ONE TABLET BY MOUTH EVERY 4 HOURS NEEDED FOR PAIN 09/17/2014 09/28/2014 Inactive (Response to an electronic controlled substance refill request - RxReferenceNumber: [id number]) Duragesic 50 mcg/hr transdermal patch RxNorm: 200458 1 TD q72 hours 08/07/2014 01/06/2015 Inactive [SAVINGS FOR UNINSURED PATIENTS -- BIN:[id number], PCN: ASPROD1, Group: [id number], ID# [id number], Process claim through QuadROI, for questions: . THIS IS NOT INSURANCE.] alprazolam 0.25 mg tablet RxNorm: 533113 TAKE ONE TABLET BY MOUTH EVERY DAY NEEDED 07/31/2014 08/29/2014 Inactive (Response to an electronic controlled substance refill request - RxReferenceNumber: [id number]) alprazolam 0.25 mg tablet RxNorm: 079745 1 Tablet(s) PO daily as needed TAKE ONE TABLET BY MOUTH EVERY DAY NEEDED 07/30/2014 08/01/2014 Inactive (Response to an electronic controlled substance refill request - [facility] [id number] Diflucan 150 mg tablet RxNorm: 832583 1 Tablet(s) PO daily 06/25/2014 07/01/2014 Inactive [SAVINGS FOR UNINSURED PATIENTS -- BIN:[id number], PCN: ASPROD1, Group: [id number], ID# [id number], Process claim through MedImpact, for questions: . THIS IS NOT INSURANCE.] Kenalog 40 mg/mL suspension for injection RxNorm: 5091786 Milliliter(s) Inj 06/23/2014 06/23/2014 Inactive [SAVINGS FOR UNINSURED PATIENTS -- BIN:185572, PCN: ASPROD1, Group: [id number], ID# [id number], Process claim through MedImpact, for questions: . THIS IS NOT INSURANCE.] ceftriaxone 500 mg solution for injection RxNorm: 883662 Inj 06/23/2014 06/23/2014 Inactive [SAVINGS FOR UNINSURED PATIENTS -- BIN:136167, PCN: ASPROD1, Group: [id number], ID# [id number], Process claim through MedImpact, for questions: . THIS IS NOT INSURANCE.] Levaquin 500 mg tablet RxNorm: 086613 1 Tablet(s) PO daily 06/23/2014 07/13/2014 Inactive [SAVINGS FOR UNINSURED PATIENTS -- BIN:727076, PCN: ASPROD1, Group: [id number], ID# [id number], Process claim through MedImpact, for questions: . THIS IS NOT INSURANCE.] Duragesic 50 mcg/hr transdermal patch RxNorm: 631054 1 TD q72 hours 06/05/2014 08/06/2014 Inactive [SAVINGS FOR UNINSURED PATIENTS -- BIN:109602, PCN: ASPROD1, Group: [id number], ID# [id number], Process claim through MedImpact, for questions: . THIS IS NOT INSURANCE.] alprazolam 0.25 mg tablet RxNorm: 741756 1 Tablet(s) PO daily as needed TAKE ONE TABLET BY MOUTH EVERY DAY NEEDED 06/02/2014 07/29/2014 Inactive (Response to an electronic controlled substance refill request - RxReferenceNumber: [id number]) nystatin 100,000 unit/gram topical powder RxNorm: 375099 APPLY TO AFFECTED AREA(S) TWO TIMES A DAY 05/01/2014 06/14/2014 Inactive hydrochlorothiazide 25 mg tablet RxNorm: 732432 TAKE ONE TABLET BY MOUTH EVERY DAY MUST CALL MD FOR APPOINTMENT 04/24/2014 10/20/2014 Inactive alprazolam 0.25 mg tablet RxNorm: 402236 Tablet(s) TAKE ONE TABLET BY MOUTH EVERY DAY NEEDED 04/16/2014 06/02/2014 Inactive (Response to an electronic controlled substance refill request - RxReferenceNumber: [id number]) alprazolam 0.25 mg tablet RxNorm: 479436 TAKE ONE TABLET BY MOUTH EVERY DAY NEEDED 04/16/2014 05/15/2014 Inactive (Response to an electronic controlled substance refill request - RxReferenceNumber: [id number]) alprazolam 0.25 mg tablet RxNorm: 004711 TAKE ONE TABLET BY MOUTH EVERY DAY NEEDED 04/16/2014 05/15/2014 Inactive (Response to an electronic controlled substance refill request - RxReferenceNumber: [id number]) alprazolam 0.25 mg tablet RxNorm: 856418 TAKE ONE TABLET BY MOUTH EVERY DAY NEEDED 04/14/2014 04/16/2014 Inactive (Response to an electronic controlled substance refill request - RxReferenceNumber: [id number]) Lipitor 10 mg tablet RxNorm: 932220 TAKE ONE TABLET BY MOUTH EVERY DAY 04/14/2014 09/10/2014 Inactive alprazolam 0.25 mg tablet RxNorm: 373319 TAKE ONE TABLET BY MOUTH EVERY DAY NEEDED 04/14/2014 04/14/2014 Inactive (Response to an electronic controlled substance refill request - RxReferenceNumber: [id number]) alprazolam 0.25 mg tablet RxNorm: 618705 TAKE ONE TABLET BY MOUTH EVERY DAY NEEDED 04/14/2014 04/15/2014 Inactive (Response to an electronic controlled substance refill request - RxReferenceNumber: [id number]) alprazolam 0.25 mg tablet RxNorm: 492203 TAKE ONE TABLET BY MOUTH EVERY DAY NEEDED 04/14/2014 04/14/2014 Inactive (Response to an electronic controlled substance refill request - RxReferenceNumber: [id number]) nystatin 100,000 unit/gram topical powder RxNorm: 475080 1 Application TOP BID 04/03/2014 07/01/2014 Inactive [SAVINGS FOR UNINSURED PATIENTS -- BIN:002405, PCN: ASPROD1, Group: [id number], ID# [id number], Process claim through MedImpact, for questions: . THIS IS NOT INSURANCE.] Keflex 500 mg capsule RxNorm: 201119 1 Capsule(s) PO QID 04/03/2014 04/09/2014 Inactive [SAVINGS FOR UNINSURED PATIENTS -- BIN:588275, PCN: ASPROD1, Group: AME08, ID# [id number], Process claim through MedImpact, for questions: . THIS IS NOT INSURANCE.] Synthroid 100 mcg tablet RxNorm: 236651 1 Tablet(s) PO daily TAKE ONE TABLET BY MOUTH EVERY DAY 04/01/2014 01/05/2015 Inactive [SAVINGS FOR UNINSURED PATIENTS -- BIN:584291, PCN: ASPROD1, Group: [id number], ID# [id number], Process claim through MedImpact, for questions: . THIS IS NOT INSURANCE.] Duragesic 50 mcg/hr transdermal patch RxNorm: 017629 1 TD q72 hours 03/24/2014 06/04/2014 Inactive [SAVINGS FOR UNINSURED PATIENTS -- BIN:833129, PCN: ASPROD1, Group: AME08, ID# [id number], Process claim through MedImpact, for questions: . THIS IS NOT INSURANCE.] trazodone 50 mg tablet RxNorm: 849209 TAKE 1 AND 1/2 TABLET AT BEDTIME FOR 2 WEEKS, MAY INCREASE TO 2 TABLETS IF NECESSARY AFTER THAT 03/18/2014 09/13/2014 Inactive nystatin 100,000 unit/gram topical powder RxNorm: 748924 1 Application TOP BID 03/07/2014 03/16/2014 Inactive [SAVINGS FOR UNINSURED PATIENTS -- BIN:549569, PCN: ASPROD1, Group: [id number], ID# [id number], Process claim through MedImpact, for questions: . THIS IS NOT INSURANCE.] permethrin 5 % topical cream RxNorm: 201121 1 Application TOP daily 03/07/2014 11/23/2015 Inactive apply head to toe-leave on overnight and wash off in the a.m. May repeat x 1 if needed Diflucan 150 mg tablet RxNorm: 569049 1 Tablet(s) PO daily 03/07/2014 03/09/2014 Inactive [SAVINGS FOR UNINSURED PATIENTS -- BIN:830720, PCN: ASPROD1, Group: [id number], ID# [id number], Process claim through MedImpact, for questions: . THIS IS NOT INSURANCE.] hydrochlorothiazide 25 mg tablet RxNorm: 750892 TAKE ONE TABLET BY MOUTH EVERY DAY MUST CALL MD FOR APPOINTMENT 03/06/2014 04/23/2014 Inactive Zithromax Z-Sergio 250 mg tablet RxNorm: 540250 Tablet(s) PO as directed 03/04/2014 11/23/2015 Inactive [SAVINGS FOR UNINSURED PATIENTS -- BIN:388714, PCN: ASPROD1, Group: [id number], ID# [id number], Process claim through MedImpact, for questions: . THIS IS NOT INSURANCE.] Flonase 50 mcg/actuation nasal spray,suspension RxNorm: 796249 1 [place] NASAL daily 03/04/2014 07/01/2014 Inactive [SAVINGS FOR UNINSURED PATIENTS -- BIN:812528, PCN: ASPROD1, Group: AME08, ID# [id number], Process claim through MedImpact, for questions: . THIS IS NOT INSURANCE.] alprazolam 0.25 mg tablet RxNorm: 064941 1 Tablet(s) PO PRN TAKE ONE TABLET BY MOUTH EVERY DAY NEEDED 02/25/2014 04/14/2014 Inactive (Appended: Controlled substance eRx refill - RxReferenceNumber: [id number]) alprazolam 0.25 mg tablet RxNorm: 806199 TAKE ONE TABLET BY MOUTH EVERY DAY NEEDED 02/21/2014 03/22/2014 Inactive (Response to an electronic controlled substance refill request - RxReferenceNumber: [id number]) alprazolam 0.25 mg tablet RxNorm: 295138 TAKE ONE TABLET BY MOUTH EVERY DAY NEEDED 02/21/2014 03/22/2014 Inactive (Response to an electronic controlled substance refill request - RxReferenceNumber: [id number]) alprazolam 0.25 mg tablet RxNorm: 159426 TAKE ONE TABLET BY MOUTH EVERY DAY NEEDED 02/18/2014 03/19/2014 Inactive (Response to an electronic controlled substance refill request - RxReferenceNumber: [id number]) Cymbalta 60 mg capsule,delayed release RxNorm: 890833 TAKE ONE CAPSULE BY MOUTH TWICE A DAY 02/18/2014 01/13/2015 Inactive Nexium 40 mg capsule,delayed release RxNorm: 060377 TAKE ONE CAPSULE BY MOUTH EVERY DAY 02/18/2014 01/13/2015 Inactive Bactrim DS 800 mg-160 mg tablet RxNorm: 156890 1 Tablet(s) PO BID 02/13/2014 02/19/2014 Inactive probiotic while one antibiotic Bactrim DS 800 mg-160 mg tablet RxNorm: 484052 1 Tablet(s) PO BID 02/13/2014 02/12/2014 Inactive hydrocodone 10 mg-acetaminophen 325 mg tablet RxNorm: 272082 Tablet(s) PO TAKE ONE TO TWO TABLETS BY MOUTH EVERY 6 HOURS NEEDED FOR PAIN 02/06/2014 03/18/2015 Inactive (Appended: Controlled substance eRx refill - RxReferenceNumber: [id number]) Abilify 2 mg tablet RxNorm: 100261 Tablet(s) PO TAKE ONE TABLET BY MOUTH EVERY NIGHT AT BEDTIME 02/03/2014 03/19/2015 Inactive Duragesic 50 mcg/hr transdermal patch RxNorm: 249703 1 TD q72 hours 01/14/2014 03/23/2014 Inactive alprazolam 0.25 mg tablet RxNorm: 376652 1 Tablet(s) PO QDAY PRN 01/14/2014 02/12/2014 Inactive alprazolam 0.25 mg tablet RxNorm: 297990 Tablet(s) PO TAKE ONE TABLET BY MOUTH EVERY DAY NEEDED 01/14/2014 02/24/2014 Inactive (Appended: Controlled substance eRx refill - RxReferenceNumber: [id number]) Lipitor 10 mg tablet RxNorm: 502168 Tablet(s) PO TAKE ONE TABLET BY MOUTH EVERY DAY 01/14/2014 04/13/2014 Inactive Synthroid 100 mcg tablet RxNorm: 341143 Tablet(s) PO TAKE ONE TABLET BY MOUTH EVERY DAY 2013 03/31/2014 Inactive Fioricet 50 mg-325 mg-40 mg tablet RxNorm: 629805 Tablet(s) PO TAKE ONE TABLET BY MOUTH EVERY 4 HOURS NEEDED FOR PAIN 11/27/2013 09/17/2014 Inactive Fioricet 50 mg-325 mg-40 mg tablet RxNorm: 463067 Tablet(s) PO TAKE ONE TABLET BY MOUTH EVERY 4 HOURS NEEDED FOR PAIN 11/25/2013 11/26/2013 Inactive Zithromax Z-Sergio 250 mg tablet RxNorm: 850864 Tablet(s) PO as directed 11/11/2013 01/13/2014 Inactive Bystolic 10 mg tablet RxNorm: 665263 Tablet(s) PO TAKE ONE TABLET BY MOUTH EVERY DAY 10/21/2013 09/28/2014 Inactive Abilify 2 mg tablet RxNorm: 752826 1 Tablet(s) PO QHS 09/25/2013 01/22/2014 Inactive Synthroid 100 mcg tablet RxNorm: 260942 Tablet(s) PO TAKE ONE TABLET BY MOUTH EVERY DAY 09/24/2013 12/25/2013 Inactive Abilify 2 mg tablet RxNorm: 002667 1 Tablet(s) PO QHS 09/24/2013 09/24/2013 Inactive Rocephin 500 mg solution for injection RxNorm: 845818 1ml Milliliter(s) Inj 09/24/2013 09/24/2013 Inactive Rocephin 500 mg solution for injection RxNorm: 983743 1 Milliliter(s) Inj 09/19/2013 09/19/2013 Inactive Bystolic 5 mg tablet RxNorm: 417154 1 1/2 Tablet(s) PO daily 09/17/2013 03/15/2014 Inactive 1 1/2 daily may have 90 day if cheaper Bystolic 5 mg tablet RxNorm: 106285 1 1/2 Tablet(s) PO daily 09/17/2013 09/16/2013 Inactive 1 1/2 daily Lipitor 10 mg tablet RxNorm: 517944 Tablet(s) PO TAKE ONE TABLET BY MOUTH EVERY DAY 09/12/2013 01/13/2014 Inactive hydrocodone 10 mg-acetaminophen 325 mg tablet RxNorm: 561765 Tablet(s) PO TAKE ONE TO TWO TABLETS BY MOUTH EVERY 6 HOURS NEEDED FOR PAIN 09/09/2013 10/29/2017 Inactive (Appended: Controlled substance eRx refill - RxReferenceNumber: [id number]) hydrocodone 10 mg-acetaminophen 325 mg tablet RxNorm: 704248 1 Tablet(s) PO Q6 PRN 09/09/2013 02/06/2014 Inactive hydrocodone 10 mg-acetaminophen 325 mg tablet RxNorm: 230407 Tablet(s) PO TAKE ONE TO TWO TABLETS BY MOUTH EVERY 6 HOURS NEEDED FOR PAIN 09/06/2013 10/29/2017 Inactive (Appended: Controlled substance eRx refill - RxReferenceNumber: [id number]) Norvasc 10 mg tablet RxNorm: 830868 Tablet(s) PO TAKE ONE TABLET BY MOUTH EVERY DAY 09/05/2013 10/25/2015 Inactive trazodone 50 mg tablet RxNorm: 882255 1 1/2 Tablet(s) PO QHS 09/03/2013 03/17/2014 Inactive 75q hs x 2 week may increase to 100mg if nec after that nystatin 100,000 unit/mL oral suspension RxNorm: 750778 6 Milliliter(s) PO QID 08/06/2013 08/15/2013 Inactive Flonase 50 mcg/actuation nasal spray,suspension RxNorm: 831800 2 [place] NASAL daily 08/06/2013 03/03/2014 Inactive nystatin 100,000 unit/mL oral suspension RxNorm: 667848 6 Unit(s) PO QID 08/05/2013 08/05/2013 Inactive Phenergan with Codeine Syrup RxNorm: 5 Milliliter(s) PO Q4 PRN 08/05/2013 12/02/2013 Inactive 8 ounces alprazolam 0.25 mg tablet RxNorm: 134823 1 Tablet(s) PO QDAY PRN 07/29/2013 01/14/2014 Inactive Diflucan 150 mg tablet RxNorm: 915974 1 Tablet(s) PO daily 07/24/2013 07/26/2013 Inactive hydrochlorothiazide 25 mg tablet RxNorm: 807035 Tablet(s) PO TAKE ONE TABLET BY MOUTH EVERY DAY MUST CALL MD FOR APPOINTMENT 07/19/2013 03/05/2014 Inactive Phenergan with Codeine Syrup RxNorm: 10 Milliliter(s) PO Q4 PRN 07/10/2013 08/04/2013 Inactive 8 ounces Rocephin 500 mg solution for injection RxNorm: 034142 1 Inj 07/10/2013 07/10/2013 Inactive cefdinir 300 mg capsule RxNorm: 670800 1 Capsule(s) PO BID 07/10/2013 07/16/2013 Inactive prednisone 10 mg tablet RxNorm: 931127 3 Tablet(s) PO daily 07/10/2013 07/14/2013 Inactive Carafate 100 mg/mL oral suspension RxNorm: 708766 10 Milliliter(s) PO Q6 PRN pt to take carafate 10mL every 6 hours as needed. 07/10/2013 08/05/2014 Inactive Kenalog 40 mg/mL suspension for injection RxNorm: 4762690 1 Milliliter(s) Inj 07/10/2013 07/10/2013 Inactive trazodone 50 mg tablet RxNorm: 648314 1 Tablet(s) PO QHS 07/10/2013 09/02/2013 Inactive sulfamethoxazole 800 mg-trimethoprim 160 mg tablet RxNorm: 754953 1 Tablet(s) PO BID 06/03/2013 06/12/2013 Inactive Synthroid 125 mcg tablet RxNorm: 882330 1 Tablet(s) PO daily 05/07/2013 09/23/2013 Inactive Bystolic 10 mg tablet RxNorm: 789072 1.5 Tablet(s) PO daily 05/07/2013 09/03/2013 Inactive Voltaren 1 % Topical Gel RxNorm: 807099 4 Gram(s) TOP QID apply 4 grams to knees, 2 grams to hands and ankles four times daily. 05/07/2013 09/03/2013 Inactive hydrocodone 10 mg-acetaminophen 325 mg tablet RxNorm: 364849 1 Tablet(s) PO Q6 PRN 04/23/2013 09/09/2013 Inactive Norvasc 10 mg tablet RxNorm: 950991 Tablet(s) PO TAKE ONE TABLET BY MOUTH EVERY DAY 04/23/2013 09/04/2013 Inactive alprazolam 0.25 mg tablet RxNorm: 154237 1 Tablet(s) PO QDAY PRN 03/25/2013 07/22/2013 Inactive Bystolic 10 mg tablet RxNorm: 937079 1 Tablet(s) PO daily TAKE ONE TABLET BY MOUTH EVERY DAY 03/25/2013 05/06/2013 Inactive zolpidem 10 mg tablet RxNorm: 705443 1 Tablet(s) PO HS PRN 03/25/2013 07/09/2013 Inactive gentamicin 0.3 % Eye Drops RxNorm: 4357690 3 Drop(s) OPH QID three gtts to each eye QID x 7 days 03/11/2013 03/10/2013 Inactive gentamicin 0.3 % eye drops RxNorm: 503006 3 Drop(s) OPH QID three gtts to each eye QID x 7 days 03/11/2013 03/17/2013 Inactive Nexium 40 mg capsule,delayed release RxNorm: 230551 Capsule(s) PO TAKE ONE CAPSULE BY MOUTH EVERY DAY 02/15/2013 02/17/2014 Inactive Cymbalta 60 mg capsule,delayed release RxNorm: 693174 Capsule(s) PO TAKE ONE CAPSULE BY MOUTH TWICE A DAY 02/15/2013 02/17/2014 Inactive hydrocodone 10 mg-acetaminophen 325 mg tablet RxNorm: 6695219 1 Tablet(s) PO Q6 PRN 01/22/2013 04/22/2013 Inactive Lipitor 10 mg tablet RxNorm: 467496 Tablet(s) PO TAKE ONE TABLET BY MOUTH EVERY DAY 01/07/2013 09/11/2013 Inactive Cymbalta 60 mg capsule,delayed release RxNorm: 646892 Capsule(s) PO TAKE ONE CAPSULE BY MOUTH TWICE A DAY 01/02/2013 02/14/2013 Inactive Synthroid 100 mcg tablet RxNorm: 211588 1 Tablet(s) PO 12/03/2012 05/06/2013 Inactive Enablex 7.5 mg tablet,extended release RxNorm: 299054 1 Tablet(s) PO daily 11/28/2012 11/27/2012 Inactive Enablex 7.5 mg tablet,extended release RxNorm: 050205 1 Tablet(s) PO daily 11/28/2012 11/28/2012 Inactive scopolamine 1.5 mg 72 hr Transderm Patch RxNorm: 228240 1 Milligram(s) TD q72 hours 11/26/2012 05/06/2013 Inactive hydrochlorothiazide 25 mg tablet RxNorm: 830364 Tablet(s) PO TAKE ONE TABLET BY MOUTH EVERY DAY MUST CALL MD FOR APPOINTMENT 11/24/2012 07/18/2013 Inactive Cymbalta 60 mg capsule,delayed release RxNorm: 922849 Capsule(s) PO TAKE ONE CAPSULE BY MOUTH TWICE A DAY 10/26/2012 01/01/2013 Inactive Bystolic 10 mg tablet RxNorm: 078305 Tablet(s) PO TAKE ONE TABLET BY MOUTH EVERY DAY 10/12/2012 03/25/2013 Inactive zolpidem 10 mg tablet RxNorm: 315190 1 Tablet(s) PO HS PRN 10/02/2012 01/29/2013 Inactive alprazolam 0.25 mg tablet RxNorm: 682263 1 Tablet(s) PO QDAY PRN 10/02/2012 01/29/2013 Inactive Kenalog 40 mg/mL Susp for Injection RxNorm: 8045480 1 Milliliter(s) Inj 09/24/2012 09/24/2012 Inactive Diflucan 150 mg tablet RxNorm: 553778 1 Tablet(s) PO daily 09/24/2012 09/30/2012 Inactive acyclovir 400 mg tablet RxNorm: 104492 1 Tablet(s) PO QID 09/24/2012 10/08/2012 Inactive Cipro 500 mg tablet RxNorm: 665467 1 Tablet(s) PO BID 09/24/2012 09/30/2012 Inactive Tamiflu 75 mg capsule RxNorm: 370615 1 Capsule(s) PO BID 09/17/2012 09/16/2012 Inactive Tamiflu 75 mg capsule RxNorm: 202861 1 Capsule(s) PO BID 09/17/2012 09/16/2012 Inactive Tamiflu 75 mg capsule RxNorm: 771487 1 Capsule(s) PO BID please disregard order for #14 09/17/2012 09/21/2012 Inactive fluconazole 150 mg tablet RxNorm: 825676 1 Tablet(s) PO daily 09/10/2012 09/13/2012 Inactive ketoconazole 2 % Topical Cream RxNorm: 662336 Application TOP BID apply to affected area BID until gone 08/31/2012 11/01/2017 Inactive Norvasc 10 mg tablet RxNorm: 808793 Tablet(s) PO TAKE ONE TABLET BY MOUTH EVERY DAY 08/29/2012 04/22/2013 Inactive Cipro 500 mg tablet RxNorm: 515873 1 Tablet(s) PO BID 08/17/2012 08/26/2012 Inactive Flagyl 500 mg tablet RxNorm: 999906 1 Tablet(s) PO TID 08/17/2012 08/23/2012 Inactive Cipro 500 mg tablet RxNorm: 422572 1 Tablet(s) PO BID 08/17/2012 08/16/2012 Inactive zolpidem 10 mg tablet RxNorm: 293910 1 Tablet(s) PO HS PRN 08/17/2012 09/15/2012 Inactive Flagyl 500 mg tablet RxNorm: 325889 1 Tablet(s) PO TID 08/17/2012 08/16/2012 Inactive alprazolam 0.25 mg tablet RxNorm: 083992 1 Tablet(s) PO QDAY PRN 08/17/2012 09/15/2012 Inactive [place] Allergy 180 mg tablet RxNorm: 726283 1 Tablet(s) PO daily 08/08/2012 02/03/2013 Inactive hydrochlorothiazide 25 mg tablet RxNorm: 989979 1/2 Tablet(s) PO daily 08/08/2012 11/05/2012 Inactive needs appt Carafate 1 gram tablet RxNorm: 582785 1 Tablet(s) PO QID mix with 10 cc water and dissolve into slurry 08/08/2012 08/21/2012 Inactive hydrocodone 10 mg-acetaminophen 325 mg tablet RxNorm: 4676529 1 Tablet(s) PO Q6 PRN 08/08/2012 01/21/2013 Inactive Synthroid 100 mcg tablet RxNorm: 826918 1 Tablet(s) PO 08/08/2012 12/02/2012 Inactive Cymbalta 60 mg capsule,delayed release RxNorm: 475303 Capsule(s) PO 07/23/2012 10/25/2012 Inactive TAKE ONE CAPSULE BY MOUTH TWICE A DAY Nexium 40 mg capsule,delayed release RxNorm: 218076 Capsule(s) PO 06/20/2012 02/14/2013 Inactive TAKE ONE CAPSULE BY MOUTH EVERY DAY Lipitor 10 mg tablet RxNorm: 941565 Tablet(s) PO 06/20/2012 01/06/2013 Inactive TAKE ONE TABLET BY MOUTH EVERY DAY hydrochlorothiazide 25 mg tablet RxNorm: 017665 1 Tablet(s) PO daily 06/19/2012 08/07/2012 Inactive needs appt alprazolam 0.25 mg tablet RxNorm: 922296 1 Tablet(s) PO QDAY PRN 06/05/2012 07/04/2012 Inactive zolpidem 10 mg tablet RxNorm: 946448 1 Tablet(s) PO HS PRN 06/05/2012 07/04/2012 Inactive zolpidem 10 mg tablet RxNorm: 588752 1 Tablet(s) PO HS PRN 04/16/2012 05/15/2012 Inactive alprazolam 0.25 mg tablet RxNorm: 966058 1 Tablet(s) PO QDAY PRN 04/16/2012 05/15/2012 Inactive Cymbalta 60 mg capsule,delayed release RxNorm: 747008 1 Capsule(s) PO BID 03/22/2012 07/19/2012 Inactive Fioricet 50 mg-325 mg-40 mg tablet RxNorm: 725639 1 Tablet(s) PO Q4 PRN 03/22/2012 11/24/2013 Inactive Bystolic 10 mg tablet RxNorm: 218002 Tablet(s) PO 03/22/2012 10/11/2012 Inactive TAKE ONE TABLET BY MOUTH EVERY DAY potassium chloride ER 10 mEq Tab RxNorm: 034997 1 Tablet(s) PO daily 02/24/2012 03/01/2012 Inactive Lasix 20 mg Tab RxNorm: 788083 1 Tablet(s) PO daily 02/22/2012 02/21/2012 Inactive KCL 10 meq RxNorm: 1 PO daily 02/22/2012 02/21/2012 Inactive potassium chloride ER 10 mEq Tab RxNorm: 978372 1 Tablet(s) PO daily 02/22/2012 02/21/2012 Inactive Lasix 20 mg Tab RxNorm: 483487 1 Tablet(s) PO daily 02/22/2012 02/28/2012 Inactive KCL 10 meq RxNorm: 1 PO daily 02/22/2012 02/22/2012 Inactive potassium chloride ER 10 mEq Tab RxNorm: 582473 1 Tablet(s) PO daily 02/22/2012 02/23/2012 Inactive Rocephin 500 mg Solution for Injection RxNorm: 094361 Inj 02/15/2012 02/15/2012 Inactive Nexium 40 mg capsule,delayed release RxNorm: 218048 1 Capsule(s) PO daily 02/15/2012 No Stop Date Active Bystolic 10 mg Tab RxNorm: 144590 1 Tablet(s) PO daily 02/15/2012 08/12/2012 Inactive alprazolam 0.25 mg tablet RxNorm: 170031 1 Tablet(s) PO QDAY PRN 01/31/2012 02/29/2012 Inactive zolpidem 10 mg tablet RxNorm: 638604 1 Tablet(s) PO HS PRN 01/31/2012 02/29/2012 Inactive alprazolam 0.25 mg Tab RxNorm: 919962 1 Tablet(s) PO QDAY PRN 12/16/2011 01/14/2012 Inactive zolpidem 10 mg Tab RxNorm: 463081 1 Tablet(s) PO HS PRN 12/16/2011 01/14/2012 Inactive Norvasc 10 mg tablet RxNorm: 870255 1 Tablet(s) PO daily 12/02/2011 02/21/2012 Inactive Lipitor 10 mg tablet RxNorm: 557985 1 Tablet(s) PO daily 11/16/2011 05/13/2012 Inactive zolpidem 10 mg Tab RxNorm: 785549 1 Tablet(s) PO HS PRN 10/26/2011 12/15/2011 Inactive alprazolam 0.25 mg Tab RxNorm: 166267 1 Tablet(s) PO QDAY PRN 10/26/2011 12/15/2011 Inactive hydrochlorothiazide 25 mg tablet RxNorm: 503383 1 Tablet(s) PO daily 09/05/2011 03/02/2012 Inactive Synthroid 75 mcg tablet RxNorm: 863286 1 Tablet(s) PO daily 08/01/2011 02/26/2012 Inactive Abilify 2 mg Tab RxNorm: 299149 1 Tablet(s) PO QHS 08/01/2011 09/10/2012 Inactive dicyclomine 10 mg Cap RxNorm: 889709 1 Capsule(s) PO TID 08/01/2011 10/29/2011 Inactive alprazolam 0.25 mg Tab RxNorm: 368511 1 Tablet(s) PO QDAY PRN 07/26/2011 10/25/2011 Inactive Fioricet 50 mg-325 mg-40 mg tablet RxNorm: 361405 1 Tablet(s) PO Q4 PRN 07/14/2011 03/21/2012 Inactive Rocephin 500 mg Solution for Injection RxNorm: 097148 1 Milliliter(s) Inj 07/14/2011 08/01/2011 Inactive Nexium 40 mg Capsule, delayed release RxNorm: 858725 1 Capsule(s) PO daily 05/23/2011 10/06/2011 Inactive Bystolic 10 mg tablet RxNorm: 543153 1 Tablet(s) PO daily 05/23/2011 11/18/2011 Inactive Bystolic 10 mg Tab RxNorm: 803294 1 Tablet(s) PO daily 05/23/2011 05/22/2011 Inactive alprazolam 0.25 mg Tab RxNorm: 352606 1 Tablet(s) PO QDAY PRN 05/23/2011 07/25/2011 Inactive Influenza Virus Vaccine 0.5 mL RxNorm: IM 05/23/2011 05/23/2011 Inactive zolpidem 10 mg Tab RxNorm: 844024 1 Tablet(s) PO HS PRN 05/23/2011 10/25/2011 Inactive Rocephin 500 mg Solution for Injection RxNorm: 520226 1 Milliliter(s) Inj 05/03/2011 07/14/2011 Inactive Kenalog 40 mg/mL Susp for Injection RxNorm: 0028204 1 Milliliter(s) Inj 05/03/2011 07/14/2011 Inactive Bactrim DS 800 mg-160 mg Tab RxNorm: 913405 1 Tablet(s) PO BID 05/03/2011 08/01/2011 Inactive Bystolic 10 mg tablet RxNorm: 820629 1 Tablet(s) PO daily No Start Date Active Flonase 50 mcg/actuation nasal spray,suspension RxNorm: 8585839 2 [place] NASAL daily No Start Date 08/05/2013 Inactive Levaquin 500 mg tablet RxNorm: 983082 Tablet(s) PO No Start Date 04/19/2017 Inactive Duragesic 50 mcg/hr transdermal patch RxNorm: 410208 1 TD q72 hours No Start Date 01/13/2014 Inactive Vesicare 5 mg tablet RxNorm: 747746 1 Tablet(s) PO daily No Start Date 01/06/2015 Inactive Celebrex 200 mg capsule RxNorm: 931375 1 Capsule(s) PO daily No Start Date 04/02/2014 Inactive zolpidem 10 mg Tab RxNorm: 958758 1 Tablet(s) PO HS PRN No Start Date 05/22/2011 Inactive Zyrtec 10 mg Tab RxNorm: 5922051 1 Tablet(s) PO daily No Start Date 08/08/2012 Inactive Flonase 50 mcg/actuation nasal spray,suspension RxNorm: 9128431 1 [place] NASAL daily No Start Date 11/07/2017 Inactive 1 spray to each nostril daily Nexium 40 mg Cap RxNorm: 136451 1 Capsule(s) PO daily No Start Date 05/22/2011 Inactive ketoconazole 2 % Topical Cream RxNorm: 441645 Application TOP BID apply to affected area BID until gone No Start Date 08/30/2012 Inactive aspirin 81 mg tablet RxNorm: 701615 1 Tablet(s) PO daily No Start Date 11/13/2017 Inactive Cymbalta 60 mg capsule,delayed release RxNorm: 157094 1 Capsule(s) PO BID No Start Date 03/21/2012 Inactive alprazolam 0.25 mg Tab RxNorm: 223949 1 Tablet(s) PO QDAY PRN No Start Date 05/22/2011 Inactive baclofen 10 mg tablet RxNorm: 033235 1 Tablet(s) PO TID as needed muscle spasms No Start Date 11/14/2017 Inactive Toprol XL 100 mg 24 hr Tab RxNorm: 749852 1 Tablet(s) PO BID No Start Date 04/25/2011 Inactive Xanax 0.25 mg tablet RxNorm: 890871 1 Tablet(s) PO daily as needed No Start Date 12/27/2015 Inactive Bystolic 10 mg Tab RxNorm: 276365 1 Tablet(s) PO daily No Start Date 05/22/2011 Inactive Fioricet 50 mg-325 mg-40 mg Tab RxNorm: 603667 1 Tablet(s) PO Q4 PRN No Start Date 07/13/2011 Inactive albuterol sulfate HFA 90 mcg/Actuation Aerosol Inhaler RxNorm: 1995661 1 INH Q4 PRN No Start Date 01/06/2015 Inactive Imitrex 50 mg tablet RxNorm: 899392 1 Tablet(s) PO Q8 as needed may repeat x1 dose in 1 hour of inital dose. No Start Date 02/24/2016 Inactive dc fioricet Tessalon 200 mg Cap RxNorm: 320787 1 Capsule(s) PO Q4 PRN No Start Date 02/14/2012 Inactive Zithromax Z-Sergio 250 mg tablet RxNorm: 015092 Tablet(s) PO No Start Date 11/10/2013 Inactive hydrochlorothiazide 25 mg Tab RxNorm: 581308 1 Tablet(s) PO daily No Start Date 09/04/2011 Inactive Fish Oil 1,000 mg Cap RxNorm: 1 Capsule(s) PO TID No Start Date 11/08/2017 Inactive Deplin 15 mg Tab RxNorm: 1 Tablet(s) PO daily No Start Date 08/01/2011 Inactive Brilinta 90 mg tablet RxNorm: 7256974 1 Tablet(s) PO BID No Start Date 11/23/2015 Inactive Synthroid 75 mcg Tab RxNorm: 401349 1 Tablet(s) PO daily No Start Date 07/31/2011 Inactive ciprofloxacin 0.3 % eye drops RxNorm: 302275 2 Drop(s) ophthalmic (eye) Q2H while awake x 2 days, then Q4H x 5 days No Start Date 11/22/2017 Inactive scopolamine 1.5 mg 72 hr Transderm Patch RxNorm: 269782 1 Milligram(s) TD q72 hours No Start Date 11/25/2012 Inactive hydrocodone-acetaminophen 10 mg-325 mg tablet RxNorm: 0477275 1 Tablet(s) PO Q6 PRN No Start Date 08/07/2012 Inactive Phenergan with Codeine Syrup RxNorm: 5-10 Milliliter(s) PO Q6 PRN No Start Date 02/14/2012 Inactive Norvasc 10 mg Tab RxNorm: 644385 1 Tablet(s) PO daily No Start Date 12/01/2011 Inactive Zithromax Z-Sergio 250 mg Tab RxNorm: 506606 Tablet(s) PO No Start Date 08/01/2011 Inactive Medication Administered Medication Codes Instructions Start Date Status ceftriaxone 500 mg solution for injection RxNorm: 8571096 05/28/2018 No longer Active Kenalog 40 mg/mL suspension for injection RxNorm: 1688181 Milliliter 05/28/2018 No longer Active ceftriaxone 500 mg solution for injection RxNorm: 8249021 500Milligram 01/19/2018 No longer Active Kenalog 40 mg/mL suspension for injection RxNorm: 3382697 1Milliliter 01/19/2018 No longer Active Kenalog 40 mg/mL suspension for injection RxNorm: 5998366 1Milliliter 06/27/2017 No longer Active Kenalog 40 mg/mL suspension for injection RxNorm: 8999663 Milliliter 04/20/2017 No longer Active Kenalog 40 mg/mL suspension for injection RxNorm: 1166239 1Milliliter 03/14/2017 No longer Active ceftriaxone 500 mg solution for injection RxNorm: 2386342 1Milliliter 11/28/2016 No longer Active Kenalog 40 mg/mL suspension for injection RxNorm: 3452238 Milliliter 11/07/2016 No longer Active ceftriaxone 500 mg solution for injection RxNorm: 0908499 11/07/2016 No longer Active ceftriaxone 500 mg solution for injection RxNorm: 1674511 12/07/2015 No longer Active Kenalog 40 mg/mL suspension for injection RxNorm: 5847375 1Milliliter 11/24/2015 No longer Active ceftriaxone 500 mg solution for injection RxNorm: 8124160 Milliliter 11/24/2015 No longer Active promethazine 25 mg/mL injection solution RxNorm: 218916 Milliliter 08/27/2015 No longer Active ketorolac 60 mg/2 mL intramuscular solution RxNorm: 112027 Milliliter 08/27/2015 No longer Active Kenalog 40 mg/mL suspension for injection RxNorm: 4894466 Milliliter 08/10/2015 No longer Active ceftriaxone 500 mg solution for injection RxNorm: 6162963 08/10/2015 No longer Active ceftriaxone 500 mg solution for injection RxNorm: 6612717 1Milliliter 07/28/2015 No longer Active Kenalog 40 mg/mL suspension for injection RxNorm: 3015350 Milliliter 03/19/2015 No longer Active Kenalog 40 mg/mL suspension for injection RxNorm: 6100348 Milliliter 06/23/2014 No longer Active ceftriaxone 500 mg solution for injection RxNorm: 491579 06/23/2014 No longer Active Rocephin 500 mg solution for injection RxNorm: 020825 1mlMilliliter 09/24/2013 No longer Active Rocephin 500 mg solution for injection RxNorm: 043005 1Milliliter 09/19/2013 No longer Active Rocephin 500 mg solution for injection RxNorm: 787207 1 07/10/2013 No longer Active Kenalog 40 mg/mL suspension for injection RxNorm: 0560225 1Milliliter 07/10/2013 No longer Active Kenalog 40 mg/mL Susp for Injection RxNorm: 5544709 1Milliliter 09/24/2012 No longer Active Rocephin 500 mg Solution for Injection RxNorm: 350982 02/15/2012 No longer Active Influenza Virus Vaccine [...] Item Item Code Result Date Free T4 Hph922 FREE T4 0.71 ng/dL 10/31/2018 Tsh Ord6 TSH (3rd IS) 7.87 uIU/mL 10/31/2018 Lipid Ord30 CHOL 170 mg/dL 10/31/2018 Lipid Ord30 HDL 53.0 mg/dl 10/31/2018 Lipid Ord30 TRIG 85 mg/dL 10/31/2018 Lipid Ord30 LDL 100 mg/dL 10/31/2018 Lipid Ord30 C/HDL 3.2 Ratio 10/31/2018 Comp Metabolic Xuo089 NA 142 mEq/L 10/31/2018 Comp Metabolic Rii978 K 4.0 mEq/L 10/31/2018 Comp Metabolic Wui972 CL 106 mEq/L 10/31/2018 Comp Metabolic Nok823 CO2 27.0 mEq/L 10/31/2018 Comp Metabolic Zxa470 ANION GAP 13 10/31/2018 Comp Metabolic Aax697 GLUCOSE 114 mg/dL 10/31/2018 Comp Metabolic Klo747 Creat 0.7 mg/dL 10/31/2018 Comp Metabolic Nbn552 eGFR 90 ml/min/1.73m2 10/31/2018 Comp Metabolic Jyh616 BUN 21 mg/dL 10/31/2018 Comp Metabolic Mpo661 B/C Ratio 30.9 Ratio 10/31/2018 Comp Metabolic Pdu207 CALCIUM 9.7 mg/dL 10/31/2018 Comp Metabolic Wrk038 ALK PHOS 63 U/L 10/31/2018 Comp Metabolic Ktm177 AST(SGOT) 24 U/L 10/31/2018 Comp Metabolic Czc493 ALT(SGPT) 21 U/L 10/31/2018 Comp Metabolic Aga108 BILI T 0.6 mg/dL 10/31/2018 Comp Metabolic Zvs873 ALBUMIN 4.1 g/dL 10/31/2018 Comp Metabolic Cyz529 TPRO 6.6 g/dL 10/31/2018 Comp Metabolic Mzb055 GLOB 2.5 g/dL 10/31/2018 Comp Metabolic Qrw056 A/G Ratio 1.7 Ratio 10/31/2018 Comp Metabolic Gsx038 Osmo 287 mOsmo 10/31/2018 Cbc With Differential [...] 30.9 pg 10/31/2018 Cbc With Differential Ord2 [place]% 8.0 % 10/31/2018 Cbc With Differential Ord2 [...] 1.88 K/ul 10/31/2018 Cbc With Differential Ord2 [place] ABS# 0.6 K/ul 10/31/2018 Cbc With Differential Ord2 Eos ABS# 0.5 K/ul 10/31/2018 Cbc With Differential Ord2 Baso ABS# 0.1 K/ul 10/31/2018 Comp Metabolic Vaj895 NA 141 mEq/L 09/12/2017 Comp Metabolic Fza401 K 4.1 mEq/L 09/12/2017 Comp Metabolic Gxn566 CL 105 mEq/L 09/12/2017 Comp Metabolic Mvm210 CO2 30.0 mEq/L 09/12/2017 Comp Metabolic Ccn136 ANION GAP 10 09/12/2017 Comp Metabolic Ssx907 GLUCOSE 97 mg/dL 09/12/2017 Comp Metabolic Tcf897 Creat 0.7 mg/dL 09/12/2017 Comp Metabolic Wuj019 eGFR 91 ml/min/1.73m2 09/12/2017 Comp Metabolic Aio482 BUN 18 mg/dL 09/12/2017 Comp Metabolic Fgf369 B/C Ratio 26.5 Ratio 09/12/2017 Comp Metabolic Hak873 CALCIUM 9.7 mg/dL 09/12/2017 Comp Metabolic Uco885 ALK PHOS 60 U/L 09/12/2017 Comp Metabolic Ncm375 AST(SGOT) 22 U/L 09/12/2017 Comp Metabolic Kij127 ALT(SGPT) 23 U/L 09/12/2017 Comp Metabolic Eeu777 BILI T 0.4 mg/dL 09/12/2017 Comp Metabolic Crv110 ALBUMIN 3.8 g/dL 09/12/2017 Comp Metabolic Czu230 TPRO 6.4 g/dL 09/12/2017 Comp Metabolic Cha223 GLOB 2.6 g/dL 09/12/2017 Comp Metabolic Jek740 A/G Ratio 1.5 Ratio 09/12/2017 Comp Metabolic Grf422 Osmo 283 mOsmo 09/12/2017 Cbc With Differential [...] 31.1 % 09/12/2017 Cbc With Differential Ord2 [place]% 7.2 % 09/12/2017 Cbc With Differential Ord2 MCH 30.7 pg 09/12/2017 Cbc With Differential Ord2 MCHC 32.2 pg 09/12/2017 Cbc With Differential Ord2 Eos% 3.9 % 09/12/2017 Cbc With Differential Ord2 PLT 232 K/ul 09/12/2017 Cbc With Differential Ord2 Baso% 0.8 % 09/12/2017 Cbc With Differential Ord2 Neut ABS# 4.50 K/ul 09/12/2017 Cbc With Differential Ord2 RDW 13.2 % 09/12/2017 Cbc With Differential Ord2 Lymph ABS# 2.46 K/ul 09/12/2017 Cbc With Differential Ord2 [place] ABS# 0.6 K/ul 09/12/2017 Cbc With Differential [...] 31.4 pg 11/07/2016 Cbc With Differential Ord2 [place]% 6.1 % 11/07/2016 Cbc With Differential Ord2 MCHC 32.6 pg 11/07/2016 Cbc With Differential Ord2 Eos% 2.8 % 11/07/2016 Cbc With Differential Ord2 PLT 231 K/ul 11/07/2016 Cbc With Differential Ord2 Baso% 0.5 % 11/07/2016 Cbc With Differential Ord2 Neut ABS# 5.87 K/ul 11/07/2016 Cbc With Differential Ord2 RDW 13.7 % 11/07/2016 Cbc With Differential Ord2 Lymph ABS# 2.48 K/ul 11/07/2016 Cbc With Differential Ord2 [place] ABS# 0.6 K/ul 11/07/2016 Cbc With Differential Ord2 Eos ABS# 0.3 K/ul 11/07/2016 Cbc With Differential Ord2 Baso ABS# 0.1 K/ul 11/07/2016 Comp Metabolic Pkn151 NA 139 mEq/L 11/07/2016 Comp Metabolic Rqk388 K 3.8 mEq/L 11/07/2016 Comp Metabolic Hqu180 CL 106 mEq/L 11/07/2016 Comp Metabolic Bzn416 CO2 25.0 mEq/L 11/07/2016 Comp Metabolic Ajr103 ANION GAP 12 11/07/2016 Comp Metabolic Fuj110 GLUCOSE 98 mg/dL 11/07/2016 Comp Metabolic Kep572 Creat 0.8 mg/dL 11/07/2016 Comp Metabolic Ufu240 eGFR 71 ml/min/1.73m2 11/07/2016 Comp Metabolic Pje451 BUN 36 mg/dL 11/07/2016 Comp Metabolic Rpr882 B/C Ratio 42.9 Ratio 11/07/2016 Comp Metabolic Obb381 CALCIUM 9.9 mg/dL 11/07/2016 Comp Metabolic Ewl809 ALK PHOS 57 U/L 11/07/2016 Comp Metabolic Ola210 AST(SGOT) 24 U/L 11/07/2016 Comp Metabolic Qbn104 ALT(SGPT) 28 U/L 11/07/2016 Comp Metabolic Ces938 BILI T 0.4 mg/dL 11/07/2016 Comp Metabolic Ayk650 ALBUMIN 4.2 g/dL 11/07/2016 Comp Metabolic Uma667 TPRO 7.0 g/dL 11/07/2016 Comp Metabolic Tim496 GLOB 2.8 g/dL 11/07/2016 Comp Metabolic Spd952 A/G Ratio 1.5 Ratio 11/07/2016 Comp Metabolic Vop890 Osmo 286 mOsmo 11/07/2016 Free T4 Jms501 FREE T4 0.75 ng/dL 11/07/2016 Tsh Ord6 hTSH II 3.46 uIU/mL 11/07/2016 Comp Metabolic Pdw355 NA 138 mEq/L 05/10/2016 Comp Metabolic Gzs787 K 3.8 mEq/L 05/10/2016 Comp Metabolic Pwh701 CL 102 mEq/L 05/10/2016 Comp Metabolic Acl914 CO2 29.0 mEq/L 05/10/2016 Comp Metabolic Ahx376 ANION GAP 11 05/10/2016 Comp Metabolic Dek012 GLUCOSE 107 mg/dL 05/10/2016 Comp Metabolic Jcr236 Creat 0.7 mg/dL 05/10/2016 Comp Metabolic Svz285 eGFR 93 ml/min/1.73m2 05/10/2016 Comp Metabolic Hmz042 BUN 18 mg/dL 05/10/2016 Comp Metabolic Kwn453 B/C Ratio 26.9 Ratio 05/10/2016 Comp Metabolic Vgu172 CALCIUM 9.8 mg/dL 05/10/2016 Comp Metabolic Kxe563 ALK PHOS 60 U/L 05/10/2016 Comp Metabolic Ijt600 AST(SGOT) 21 U/L 05/10/2016 Comp Metabolic Fwy902 ALT(SGPT) 23 U/L 05/10/2016 Comp Metabolic Wbo654 BILI T 0.5 mg/dL 05/10/2016 Comp Metabolic Gse700 ALBUMIN 4.1 g/dL 05/10/2016 Comp Metabolic Vlz746 TPRO 6.7 g/dL 05/10/2016 Comp Metabolic Vqs115 GLOB 2.7 g/dL 05/10/2016 Comp Metabolic Lbv336 A/G Ratio 1.5 Ratio 05/10/2016 Comp Metabolic Akw926 Osmo 278 mOsmo 05/10/2016 Lipid Ord30 CHOL 169 mg/dL 05/10/2016 Lipid Ord30 HDL 50.0 mg/dl 05/10/2016 Lipid Ord30 TRIG 161 mg/dL 05/10/2016 Lipid Ord30 LDL 87 mg/dL 05/10/2016 Lipid Ord30 C/HDL 3.4 Ratio 05/10/2016 Comp Metabolic Ibe997 NA 137 mEq/L 06/12/2015 Comp Metabolic Hzx750 K 3.8 mEq/L 06/12/2015 Comp Metabolic Vpc870 CL 104 mEq/L 06/12/2015 Comp Metabolic Dav272 CO2 24.0 mEq/L 06/12/2015 Comp Metabolic Oeu788 ANION GAP 13 06/12/2015 Comp Metabolic Mec595 GLUCOSE 92 mg/dL 06/12/2015 Comp Metabolic Swj714 Creat 0.7 mg/dL 06/12/2015 Comp Metabolic Cfq651 eGFR 87 ml/min/1.73m2 06/12/2015 Comp Metabolic Utg492 BUN 31 mg/dL 06/12/2015 Comp Metabolic Yaz873 B/C Ratio 43.7 Ratio 06/12/2015 Comp Metabolic Ali983 CALCIUM 10.0 mg/dL 06/12/2015 Comp Metabolic Vjc891 ALK PHOS 58 U/L 06/12/2015 Comp Metabolic Ukb482 AST(SGOT) 32 U/L 06/12/2015 Comp Metabolic Dvc533 ALT(SGPT) 33 U/L 06/12/2015 Comp Metabolic Awt204 BILI T 0.5 mg/dL 06/12/2015 Comp Metabolic Mgk198 ALBUMIN 4.1 g/dL 06/12/2015 Comp Metabolic Vvi136 TPRO 6.6 g/dL 06/12/2015 Comp Metabolic Rle117 GLOB 2.5 g/dL 06/12/2015 Comp Metabolic Koo203 A/G Ratio 1.6 Ratio 06/12/2015 Comp Metabolic Esv178 Osmo 280 mOsmo 06/12/2015 Cbc With Differential [...] Differential Ord2 RDW 14.2 % 06/12/2015 CBC 1589747 WBC 8.7 10e9/L 04/30/2013 CBC 1038273 RBC 4.63 10e12/L 04/30/2013 CBC 7731305 HGB 14.1 g/dL 04/30/2013 CBC 7855698 HCT DET 42.2 % 04/30/2013 CBC 3535433 MCV 91.1 fL 04/30/2013 CBC 7798177 MCH 30.5 pg 04/30/2013 CBC 0905828 MCHC 33.4 g/dL 04/30/2013 CBC 0473798 PLT 248 10e9/L 04/30/2013 CBC 8802459 MPV 12.1 fL 04/30/2013 CBC 5496141 LARA % 59.0 % 04/30/2013 CBC 9571068 LY % 27.6 % 04/30/2013 CBC 6384549 MON % 8.0 % 04/30/2013 CBC 8369336 EOS % 4.8 % 04/30/2013 CBC 1883000 BASO % 0.6 % 04/30/2013 CBC 9462008 RDW 13.3 % 04/30/2013 CBC 6067412 ABS LARA 5.13 10e9/L 04/30/2013 CBC 7135462 ABS LYMPH 2.40 10e9/L 04/30/2013 CBC 0476111 ABS MONO 0.70 10e9/L 04/30/2013 CBC 0488788 ABS EOS 0.42 10e9/L 04/30/2013 CBC 6678673 ABS BASO 0.05 10e9/L 04/30/2013 CBC 4169689 RDW-SD 43.1 fL 04/30/2013 TSH 9635745 TSH 4.339 uIU/ML 04/30/2013 A1C HPLC 7257175 A1C HPLC 61719-4 5.6 % 04/30/2013 FREE T4 1516418 FREE T4 0.84 NG/DL 04/30/2013 GFR CALC 8715795 GFR AA >60 ML/MIN 04/30/2013 GFR CALC 4111185 GFR NON-AA >60 ML/MIN 04/30/2013 CHEM 14 8783649 AST 22 U/L 04/30/2013 CHEM 14 2985577 ALT 22 IU/L 04/30/2013 CHEM 14 7603980 BUN 24 MG/DL 04/30/2013 CHEM 14 3049001 ALBUMIN 4.2 GM/DL 04/30/2013 CHEM 14 9171432 CHLORIDE 107 MMOL/L 04/30/2013 CHEM 14 6885827 BILI TOT 0.3 MG/DL 04/30/2013 CHEM 14 3142432 ALK PHOS 88 U/L 04/30/2013 CHEM 14 8869168 SODIUM 141 MMOL/L 04/30/2013 CHEM 14 8839961 CREATININE 0.60 MG/DL 04/30/2013 CHEM 14 2309355 CALCIUM 9.9 MG/DL 04/30/2013 CHEM 14 5247300 POTASSIUM 3.7 MMOL/L 04/30/2013 CHEM 14 3789340 PROT TOT 6.6 GM/DL 04/30/2013 CHEM 14 0905431 GLUCOSE 123 MG/DL 04/30/2013 CHEM 14 3103047 BICARB 25 MMOL/L 04/30/2013 CHEM 14 2540898 ANION GAP 9 MEQ/L 04/30/2013 LIPID GRP HDL TEST 46 MG/DL 04/30/2013 LIPID GRP TRIG 148 MG/DL 04/30/2013 LIPID GRP TEST LDL 75 MG/DL 04/30/2013 LIPID GRP CHOL 151 MG/DL 04/30/2013 LIPID GRP RCHOL/HDL 3.28 RATIO 04/30/2013 TSH 6640247 TSH 3.341 uIU/ML 11/29/2012 CBC 5810431 WBC 8.4 10e9/L 11/29/2012 CBC 3218614 RBC 4.77 10e12/L 11/29/2012 CBC 5641296 HGB 14.9 g/dL 11/29/2012 CBC 8876877 HCT DET 44.2 % 11/29/2012 CBC 4414473 MCV 92.7 fL 11/29/2012 CBC 5436230 MCH 31.2 pg 11/29/2012 CBC 3702250 MCHC 33.7 g/dL 11/29/2012 CBC 9227897 PLT 253 10e9/L 11/29/2012 CBC 5737705 MPV 11.8 fL 11/29/2012 CBC 2301490 LARA % 54.9 % 11/29/2012 CBC 4598607 LY % 29.0 % 11/29/2012 CBC 5200502 MON % 10.4 % 11/29/2012 CBC 2775404 EOS % 5.1 % 11/29/2012 CBC 4162728 BASO % 0.6 % 11/29/2012 CBC 8989326 RDW 13.8 % 11/29/2012 CBC 8982258 ABS LARA 4.61 10e9/L 11/29/2012 CBC 4776111 ABS LYMPH 2.44 10e9/L 11/29/2012 CBC 2923728 ABS MONO 0.87 10e9/L 11/29/2012 CBC 7995985 ABS EOS 0.43 10e9/L 11/29/2012 CBC 0677680 ABS BASO 0.05 10e9/L 11/29/2012 CBC 4069962 RDW-SD 45.9 fL 11/29/2012 CHEM 14 1528923 AST 25 U/L 11/29/2012 CHEM 14 7914315 ALT 26 IU/L 11/29/2012 CHEM 14 4445708 BUN 25 MG/DL 11/29/2012 CHEM 14 1046472 ALBUMIN 4.4 GM/DL 11/29/2012 CHEM 14 8240638 CHLORIDE 106 MMOL/L 11/29/2012 CHEM 14 5724968 BILI TOT 0.4 MG/DL 11/29/2012 CHEM 14 3497350 ALK PHOS 86 U/L 11/29/2012 CHEM 14 6027671 SODIUM 141 MMOL/L 11/29/2012 CHEM 14 6168150 CREATININE 0.80 MG/DL 11/29/2012 CHEM 14 4242163 CALCIUM 9.7 MG/DL 11/29/2012 CHEM 14 3065402 POTASSIUM 4.0 MMOL/L 11/29/2012 CHEM 14 4732171 PROT TOT 6.6 GM/DL 11/29/2012 CHEM 14 8863879 GLUCOSE 112 MG/DL 11/29/2012 CHEM 14 7153402 BICARB 29 MMOL/L 11/29/2012 CHEM 14 4610480 ANION GAP 6 MEQ/L 11/29/2012 A1C HPLC 0534425 A1C HPLC 81666-2 5.5 % 11/29/2012 LIPID GRP HDL TEST 54 MG/DL 11/29/2012 LIPID GRP TRIG 77 MG/DL 11/29/2012 LIPID GRP TEST LDL 78 MG/DL 11/29/2012 LIPID GRP CHOL 147 MG/DL 11/29/2012 LIPID GRP RCHOL/HDL 2.72 RATIO 11/29/2012 FREE T4 3454159 FREE T4 1.23 NG/DL 11/29/2012 GFR CALC 0260864 GFR AA >60 ML/MIN 11/29/2012 GFR CALC 4315133 GFR NON-AA >60 ML/MIN 11/29/2012 CHEM 14 1358706 AST 23 U/L 08/07/2012 CHEM 14 5193091 ALT 34 IU/L 08/07/2012 CHEM 14 7520245 BUN 26 MG/DL 08/07/2012 CHEM 14 2921103 ALBUMIN 4.4 GM/DL 08/07/2012 CHEM 14 3549836 CHLORIDE 105 MMOL/L 08/07/2012 CHEM 14 1838467 BILI TOT 0.5 MG/DL 08/07/2012 CHEM 14 6489815 ALK PHOS 79 U/L 08/07/2012 CHEM 14 3804922 SODIUM 140 MMOL/L 08/07/2012 CHEM 14 4566609 CREATININE 0.71 MG/DL 08/07/2012 CHEM 14 5672024 CALCIUM 10.4 MG/DL 08/07/2012 CHEM 14 8217250 POTASSIUM 3.8 MMOL/L 08/07/2012 CHEM 14 4956403 PROT TOT 6.8 GM/DL 08/07/2012 CHEM 14 5732746 GLUCOSE 104 MG/DL 08/07/2012 CHEM 14 8614660 BICARB 27 MMOL/L 08/07/2012 CHEM 14 5822914 ANION GAP 8 MEQ/L 08/07/2012 A1C HPLC 2519591 A1C HPLC 42947-1 5.4 % 08/07/2012 FREE T4 4810606 FREE T4 1.11 NG/DL 08/07/2012 LIPID GRP HDL TEST 50 MG/DL 08/07/2012 LIPID GRP TRIG 127 MG/DL 08/07/2012 LIPID GRP TEST LDL 93 MG/DL 08/07/2012 LIPID GRP CHOL 168 MG/DL 08/07/2012 LIPID GRP RCHOL/HDL 3.36 RATIO 08/07/2012 CBC 7341786 WBC 8.7 10e9/L 08/07/2012 CBC 7875957 RBC 4.67 10e12/L 08/07/2012 CBC 7821309 HGB 14.4 g/dL 08/07/2012 CBC 5088616 HCT DET 42.8 % 08/07/2012 CBC 5013160 MCV 91.6 fL 08/07/2012 CBC 7306957 MCH 30.8 pg 08/07/2012 CBC 2727582 MCHC 33.6 g/dL 08/07/2012 CBC 3698282 PLT 271 10e9/L 08/07/2012 CBC 2808713 MPV 12.3 fL 08/07/2012 CBC 3097542 LARA % 50.6 % 08/07/2012 CBC 0912149 LY % 34.9 % 08/07/2012 CBC 9727705 MON % 9.1 % 08/07/2012 CBC 8201293 EOS % 5.1 % 08/07/2012 CBC 1668278 BASO % 0.3 % 08/07/2012 CBC 5505539 RDW 13.6 % 08/07/2012 CBC 8253003 ABS LARA 4.40 10e9/L 08/07/2012 CBC 2501037 ABS LYMPH 3.04 10e9/L 08/07/2012 CBC 7940748 ABS MONO 0.79 10e9/L 08/07/2012 CBC 4155882 ABS EOS 0.44 10e9/L 08/07/2012 CBC 2559061 ABS BASO 0.03 10e9/L 08/07/2012 CBC 7821219 RDW-SD 44.1 fL 08/07/2012 TSH 6241033 TSH 7.419 uIU/ML 08/07/2012 GFR CALC 7176326 GFR AA >60 ML/MIN 08/07/2012 GFR CALC 6945893 GFR NON-AA >60 ML/MIN 08/07/2012 A1C HPLC 5732882 A1C HPLC 59554-4 5.3 % 02/21/2012 TSH 1692494 TSH 0.832 uIU/ML 02/16/2012 FREE T4 3682472 FREE T4 1.04 NG/DL 02/16/2012 GFR CALC 1535169 GFR AA >60 ML/MIN 02/16/2012 GFR CALC 1118017 GFR NON-AA >60 ML/MIN 02/16/2012 BMP 7979840 GLUCOSE 112 MG/DL 02/16/2012 BMP CREATININE 0.65 MG/DL 02/16/2012 BMP BUN 17 MG/DL 02/16/2012 BMP 0160991 SODIUM 144 MMOL/L 02/16/2012 BMP 5845987 POTASSIUM 4.0 MMOL/L 02/16/2012 BMP 4162287 CHLORIDE 107 MMOL/L 02/16/2012 BMP 7826408 BICARB 29 MMOL/L 02/16/2012 BMP 2880287 ANION GAP 8 MEQ/L 02/16/2012 BMP 5669636 CALCIUM 9.5 MG/DL 02/16/2012 CBC 4922186 WBC 7.1 10e9/L 02/16/2012 CBC 4676744 RBC 4.47 10e12/L 02/16/2012 CBC 2141893 HGB 13.5 g/dL 02/16/2012 CBC 7225911 HCT DET 40.7 % 02/16/2012 CBC 8206103 MCV 91.1 fL 02/16/2012 CBC 8060607 MCH 30.2 pg 02/16/2012 CBC 5749004 MCHC 33.2 g/dL 02/16/2012 CBC 7626788 PLT 238 10e9/L 02/16/2012 CBC 7907636 MPV 11.4 fL 02/16/2012 CBC 1765943 LARA % 55.7 % 02/16/2012 CBC 4621466 LY % 29.6 % 02/16/2012 CBC 7310604 MON % 9.2 % 02/16/2012 CBC 4741174 EOS % 5.1 % 02/16/2012 CBC 4375054 BASO % 0.4 % 02/16/2012 CBC 4842126 RDW 13.0 % 02/16/2012 CBC 6976381 ABS LARA 3.95 10e9/L 02/16/2012 CBC 0476405 ABS LYMPH 2.10 10e9/L 02/16/2012 CBC 3331550 ABS MONO 0.65 10e9/L 02/16/2012 CBC 2599819 ABS EOS 0.36 10e9/L 02/16/2012 CBC 4253120 ABS BASO 0.03 10e9/L 02/16/2012 CBC 0316306 RDW-SD 42.4 fL 02/16/2012 URINALYSIS NONAUTO W/O SCOPE 03803 Specific [place] 1.015 DateTime(Free Text in Aprima) URINALYSIS NONAUTO W/O SCOPE 56562 PH 7 DateTime(Free Text in Aprima) URINALYSIS NONAUTO W/O SCOPE 51393 GLUCOSE neg DateTime(Free Text in Aprima) URINALYSIS NONAUTO W/O SCOPE 13781 Protein 1+ DateTime(Free Text in Aprima) URINALYSIS NONAUTO W/O SCOPE 92447 Blood neg DateTime(Free Text in Aprima) URINALYSIS NONAUTO W/O SCOPE 61678 Bilirubin neg DateTime(Free Text in Aprima) URINALYSIS NONAUTO W/O SCOPE 57352 Ketones neg DateTime(Free Text in Aprima) URINALYSIS NONAUTO W/O SCOPE 18626 Urobilinogen neg DateTime(Free Text in Aprima) URINALYSIS NONAUTO W/O SCOPE 70092 Nitrite postive DateTime(Free Text in Aprima) URINALYSIS NONAUTO W/O SCOPE 64727 Leukocytes 3+ DateTime(Free Text in Aprima) URINALYSIS NONAUTO W/O SCOPE 60892 Specific [place] 1.030 DateTime(Free Text in Aprima) URINALYSIS NONAUTO W/O SCOPE 66966 PH 6 DateTime(Free Text in Aprima) URINALYSIS NONAUTO W/O SCOPE 10038 GLUCOSE neg DateTime(Free Text in Aprima) URINALYSIS NONAUTO W/O SCOPE 36701 Protein neg DateTime(Free Text in Aprima) URINALYSIS NONAUTO W/O SCOPE 61516 Blood neg DateTime(Free Text in Aprima) URINALYSIS NONAUTO W/O SCOPE 10939 Bilirubin neg DateTime(Free Text in Aprima) URINALYSIS NONAUTO W/O SCOPE 32362 Ketones neg DateTime(Free Text in Aprima) URINALYSIS NONAUTO W/O SCOPE 72460 Urobilinogen neg DateTime(Free Text in Aprima) URINALYSIS NONAUTO W/O SCOPE 67318 Nitrite neg DateTime(Free Text in Aprima) URINALYSIS NONAUTO W/O SCOPE 71349 Leukocytes trace DateTime(Free Text in Aprima) URINALYSIS NONAUTO W/O SCOPE 68657 Specific [place] 1.005 DateTime(Free Text in Aprima) URINALYSIS NONAUTO W/O SCOPE 48670 PH 5 DateTime(Free Text in Aprima) URINALYSIS NONAUTO W/O SCOPE 29651 GLUCOSE neg DateTime(Free Text in Aprima) URINALYSIS NONAUTO W/O SCOPE 81926 Protein neg DateTime(Free Text in Aprima) URINALYSIS NONAUTO W/O SCOPE 34527 Blood neg DateTime(Free Text in Aprima) URINALYSIS NONAUTO W/O SCOPE 22631 Bilirubin neg DateTime(Free Text in Aprima) URINALYSIS NONAUTO W/O SCOPE 26176 Ketones neg DateTime(Free Text in Aprima) URINALYSIS NONAUTO W/O SCOPE 31589 Urobilinogen neg DateTime(Free Text in Aprima) URINALYSIS NONAUTO W/O SCOPE 33974 Nitrite neg DateTime(Free Text in Aprima) URINALYSIS NONAUTO W/O SCOPE 75688 Leukocytes neg DateTime(Free Text in Aprima) UA 29997 Specific [place] 1.030 DateTime(Free Text in Aprima) UA 14516 PH 5 DateTime(Free Text in Aprima) UA 10601 GLUCOSE neg DateTime(Free Text in Aprima) UA 39817 Protein trace DateTime(Free Text in Aprima) UA 58940 Blood large DateTime(Free Text in Aprima) UA 55463 Bilirubin neg DateTime(Free Text in Aprima) UA 87086 Ketones neg DateTime(Free Text in Aprima) UA 76427 Urobilinogen neg DateTime(Free Text in Aprima) UA 19305 Nitrite neg DateTime(Free Text in Aprima) UA 20554 Leukocytes large DateTime(Free Text in Aprima) Review [...] Codes Date URINALYSIS NONAUTO W/O SCOPE CPT-4: 36438 07/10/2018 TRIAMCINOLONE ACET INJ NOS CPT-4: J3301 05/28/2018 ROCEPHIN, PER 250 MG CPT- 4: J0696 05/28/2018 ROCEPHIN, PER 250 MG CPT- 4: J0696 01/19/2018 TRIAMCINOLONE ACET INJ NOS CPT-4: J3301 01/19/2018 PPPS, SUBSEQ VISIT CPT- 4: G0439 11/23/2017 TRIAMCINOLONE ACET INJ NOS CPT-4: J3301 06/27/2017 THER/PROPH/DIAG INJ SC/IM CPT-4: 02335 04/20/2017 TRIAMCINOLONE ACET INJ NOS CPT-4: J3301 04/20/2017 TRIAMCINOLONE ACET INJ NOS CPT-4: J3301 03/14/2017 ROCEPHIN, PER 250 MG CPT- 4: J0696 03/14/2017 DESTRUCT PREMALG LESION CPT-4: 23813 12/05/2016 DESTRUCT PREMALG LES 2-14 CPT-4: 70081 12/05/2016 URINALYSIS NONAUTO W/O SCOPE CPT-4: 56244 11/28/2016 ROCEPHIN, PER 250 MG CPT- 4: J0696 11/28/2016 PPPS, SUBSEQ VISIT CPT- 4: G0439 11/07/2016 THER/PROPH/DIAG INJ SC/IM CPT-4: 99824 11/07/2016 TRIAMCINOLONE ACET INJ NOS CPT-4: J3301 11/07/2016 ROCEPHIN, PER 250 MG CPT- 4: J0696 11/07/2016 THER/PROPH/DIAG INJ SC/IM CPT-4: 72042 08/15/2016 TRIAMCINOLONE ACET INJ NOS CPT-4: J3301 08/15/2016 ROCEPHIN, PER 250 MG CPT- 4: J0696 08/15/2016 URINALYSIS NONAUTO W/O SCOPE CPT-4: 76010 05/05/2016 ROCEPHIN, PER 250 MG CPT- 4: J0696 12/07/2015 TRIAMCINOLONE ACET INJ NOS CPT-4: J3301 11/24/2015 ROCEPHIN, PER 250 MG CPT- 4: J0696 11/24/2015 THER/PROPH/DIAG INJ SC/IM CPT-4: 64653 11/24/2015 THER/PROPH/DIAG INJ SC/IM CPT-4: 26845 08/27/2015 KETOROLAC TROMETHAMINE INJ CPT-4: J1885 08/27/2015 PROMETHAZINE HCL INJECTION CPT-4: J2550 08/27/2015 THER/PROPH/DIAG INJ SC/IM CPT-4: 82949 08/10/2015 TRIAMCINOLONE ACET INJ NOS CPT-4: J3301 08/10/2015 ROCEPHIN, PER 250 MG CPT- 4: J0696 08/10/2015 C WOUN RTS (CULTURE OTHR SPECIMN AEROBIC) CPT-4: 10105 07/28/2015 THER/PROPH/DIAG INJ SC/IM CPT-4: 72696 03/19/2015 TRIAMCINOLONE ACET INJ NOS CPT-4: J3301 03/19/2015 ROCEPHIN, PER 250 MG CPT- 4: J0696 06/23/2014 TRIAMCINOLONE ACET INJ NOS CPT-4: J3301 06/23/2014 INJ TRIGGER POINT 1/2 MUSCL CPT-4: 19406 06/05/2014 URINALYSIS NONAUTO W/O SCOPE CPT-4: 85282 02/11/2014 URINALYSIS NONAUTO W/O SCOPE CPT-4: 27313 10/15/2013 ROCEPHIN, PER 250 MG CPT- 4: J0696 09/24/2013 THER/PROPH/DIAG INJ SC/IM CPT-4: 64124 09/19/2013 ROCEPHIN, PER 250 MG CPT- 4: J0696 09/19/2013 PRESCRIP TRANSMIT VIA ERX SY CPT-4: G8553 08/05/2013 ROCEPHIN, PER 250 MG CPT- 4: J0696 07/10/2013 THER/PROPH/DIAG INJ SC/IM CPT-4: 98818 07/10/2013 TRIAMCINOLONE ACET INJ NOS CPT-4: J3301 07/10/2013 PRESCRIP TRANSMIT VIA ERX SY CPT-4: G8553 07/10/2013 [id number] EST. PATIENT, LEVEL III CPT-4: 79084 06/03/2013 PRESCRIP TRANSMIT VIA ERX SY CPT-4: G8553 06/03/2013 PRESCRIP TRANSMIT VIA ERX SY CPT-4: G8553 05/07/2013 ROUTINE VENIPUNCTURE CPT- 4: 48982 04/30/2013 ROUTINE VENIPUNCTURE CPT- 4: 80253 11/29/2012 TRIAMCINOLONE ACET INJ NOS CPT-4: J3301 09/24/2012 THER/PROPH/DIAG INJ SC/IM CPT-4: 53835 09/24/2012 URINALYSIS NONAUTO W/O SCOPE CPT-4: 79162 09/24/2012 PRESCRIP TRANSMIT VIA ERX SY CPT-4: G8553 09/24/2012 PRESCRIP TRANSMIT VIA ERX SY CPT-4: G8553 09/10/2012 PRESCRIP TRANSMIT VIA ERX SY CPT-4: G8553 08/08/2012 ROUTINE VENIPUNCTURE CPT- 4: 56203 08/07/2012 ROUTINE VENIPUNCTURE CPT- 4: 82762 02/16/2012 URINALYSIS NONAUTO W/O SCOPE CPT-4: 62773 02/15/2012 ROCEPHIN, PER 250 MG CPT- 4: J0696 02/15/2012 PRESCRIP TRANSMIT VIA ERX SY CPT-4: G8553 02/15/2012 ROUTINE VENIPUNCTURE CPT- 4: 63776 11/08/2011 ROCEPHIN, PER 250 MG CPT- 4: J0696 07/14/2011 THER/PROPH/DIAG INJ SC/IM CPT-4: 58394 07/14/2011 Influenza Virus Vaccine, Split Virus, >3 Yrs, IM CPT-4: 87000 05/23/2011 IMMUNIZATION ADMIN CPT- 4: 57038 05/23/2011 THER/PROPH/DIAG INJ SC/IM CPT-4: 33917 05/03/2011 ROCEPHIN, PER 250 MG CPT- 4: J0696 05/03/2011 TRIAMCINOLONE ACET INJ NOS CPT-4: J3301 05/03/2011 Vital Signs Date Vital 10/30/2018 Blood Pressure 1: 158/98 Code: 8480-6 BMI: 31.7 Code: 11931-3 Heart Rate 1: 80 bpm Height: 4'11" SpO2: 96% Weight: 157 lbs 10/08/2018 Blood Pressure 1: 140/80 Code: 8480-6 BMI: 32.1 Code: 59276-4 Heart Rate 1: 92 bpm Height: 4'11" SpO2: 103% Weight: 159 lbs 07/16/2018 Blood Pressure 1: 142/80 Code: 8480-6 BMI: 31.1 Code: 47365-1 Heart Rate 1: 78 bpm Height: 4'11" SpO2: 98% Weight: 154 lbs 07/10/2018 Blood Pressure 1: 156/82 Code: 8480-6 BMI: 31.1 Code: 41234-0 Heart Rate 1: 63 bpm Height: 4'11" SpO2: 99% Weight: 154 lbs 05/28/2018 Blood Pressure 1: 142/80 Code: 8480-6 Heart Rate 1: 82 bpm Height: SpO2: 97% Temperature: 35.9 (C) / 96.6 (F) Weight: 02/07/2018 Height: Weight: 01/19/2018 Blood Pressure 1: 128/76 Code: 8480-6 BMI: 31.2 Code: 33576-2 Heart Rate 1: 71 bpm Height: 4'11" SpO2: 96% Temperature: 36.5 (C) / 97.7 (F) Weight: 154 lbs 8 oz 11/23/2017 Blood Pressure 1: 146/80 Code: 8480-6 BMI: 31.7 Code: 40674-5 Heart Rate 1: 64 bpm Height: 4'11" SpO2: 97% Waist Measure (cm): 89 cm Weight: 157 lbs 09/12/2017 Blood Pressure 1: 140/86 Code: 8480-6 Heart Rate 1: 62 bpm SpO2: 96% Temperature: 36.6 (C) / 97.8 (F) Weight: 153 lbs 07/25/2017 Blood Pressure 1: 140/72 Code: 8480-6 BMI: 31.3 Code: 63164-2 Heart Rate 1: 76 bpm Height: 4'11" SpO2: 97% Temperature: 37.2 (C) / 99.0 (F) Weight: 155 lbs 06/27/2017 Blood Pressure 1: 144/84 Code: 8480-6 BMI: 31.1 Code: 88221-2 Heart Rate 1: 63 bpm Height: 4'11" SpO2: 99% Temperature: 36.4 (C) / 97.6 (F) Weight: 154 lbs 05/08/2017 Blood Pressure 1: 142/86 Code: 8480-6 BMI: 30.9 Code: 39824-6 Height: 4'11" Temperature: 36.3 (C) / 97.4 (F) Weight: 153 lbs 03/14/2017 Blood Pressure 1: 146/82 Code: 8480-6 BMI: 30.9 Code: 96253-1 Heart Rate 1: 64 bpm Height: 4'11" SpO2: 94% Weight: 153 lbs 02/20/2017 Blood Pressure 1: 142/80 Code: 8480-6 BMI: 30.9 Code: 95017-6 Heart Rate 1: 75 bpm Height: 4'11" SpO2: 97% Weight: 153 lbs 02/06/2017 Blood Pressure 1: 138/90 Code: 8480-6 BMI: 31.5 Code: 88647-2 Heart Rate 1: 61 bpm Height: 4'11" SpO2: 98% Weight: 156 lbs 12/05/2016 Blood Pressure 1: 122/72 Code: 8480-6 Heart Rate 1: 59 bpm Height: 4'11" SpO2: 98% Weight: 11/28/2016 Blood Pressure 1: 154/86 Code: 8480-6 BMI: 31.3 Code: 39843-9 Heart Rate 1: 64 bpm Height: 4'11" SpO2: 94% Temperature: 36.2 (C) / 97.2 (F) Weight: 155 lbs 11/07/2016 Blood Pressure 1: 128/64 Code: 8480-6 BMI: 31.5 Code: 23613-5 Heart Rate 1: 59 bpm Height: 4'11" SpO2: 97% Weight: 156 lbs 08/15/2016 Blood Pressure 1: 110/62 Code: 8480-6 BMI: 31.5 Code: 32081-2 Heart Rate 1: 76 bpm Height: 4'11" SpO2: 97% Weight: 156 lbs 06/07/2016 Blood Pressure 1: 120/80 Code: 8480-6 BMI: 32.9 Code: 59006-6 Heart Rate 1: 63 bpm Height: 4'11" SpO2: 93% Temperature: 36.5 (C) / 97.7 (F) Weight: 163 lbs 03/15/2016 Blood Pressure 1: 90/42 Code: 8480-6 Heart Rate 1: 65 bpm SpO2: 94% 03/14/2016 Blood Pressure 1: 188/110 Code: 8480-6 Heart Rate 1: 68 bpm SpO2: 96% 02/22/2016 Blood Pressure 1: 158/80 Code: 8480-6 BMI: 32.7 Code: 70383-2 Heart Rate 1: 71 bpm Height: 4'11" SpO2: 95% Weight: 162 lbs 12/07/2015 Blood Pressure 1: 140/88 Code: 8480-6 BMI: 32.9 Code: 84863-4 Heart Rate 1: 99 bpm Height: 4'11" SpO2: 94% Temperature: 35.9 (C) / 96.6 (F) Weight: 163 lbs 11/24/2015 Blood Pressure 1: 144/78 Code: 8480-6 BMI: 33.7 Code: 15325-3 Heart Rate 1: 60 bpm Height: 4'11" SpO2: 98% Temperature: 36.6 (C) / 97.9 (F) Weight: 167 lbs 08/27/2015 Blood Pressure 1: 164/82 Code: 8480-6 BMI: 32.3 Code: 02334-2 Heart Rate 1: 60 bpm Height: 4'11" SpO2: 93% Weight: 160 lbs 08/10/2015 Blood Pressure 1: 130/60 Code: 8480-6 BMI: 32.5 Code: 02755-8 Heart Rate 1: 64 bpm Height: 4'11" SpO2: 97% Weight: 161 lbs 07/28/2015 Blood Pressure 1: 124/68 Code: 8480-6 BMI: 32.5 Code: 89085-7 Heart Rate 1: 69 bpm Height: 4'11" SpO2: 97% Weight: 161 lbs 06/11/2015 Blood Pressure 1: 148/80 Code: 8480-6 BMI: 32.9 Code: 42981-6 Heart Rate 1: 70 bpm Height: 4'11" SpO2: 94% Weight: 163 lbs 03/19/2015 Blood Pressure 1: 150/102 Code: 8480-6 Blood Pressure 2: 152/92 Code: 8480-6 BMI: 32.5 Code: 83736-8 Heart Rate 1: 71 bpm Height: 4'11" SpO2: 96% Weight: 161 lbs 01/07/2015 Blood Pressure 1: 126/84 Code: 8480-6 Heart Rate 1: 80 bpm Height: 4'11" 09/23/2014 Blood Pressure 1: 112/72 Code: 8480-6 BMI: 33.9 Code: 07323-7 Heart Rate 1: 72 bpm Height: 4'11" Weight: 168 lbs 08/05/2014 Blood Pressure 1: 140/86 Code: 8480-6 BMI: 33.3 Code: 85470-8 Height: 4'11" Weight: 165 lbs 06/23/2014 Blood Pressure 1: 132/70 Code: 8480-6 BMI: 32.9 Code: 38959-8 Heart Rate 1: 58 bpm Height: 4'11" Temperature: 36.0 (C) / 96.8 (F) Weight: 163 lbs 06/05/2014 Blood Pressure 1: 121/85 Code: 8480-6 BMI: 34.3 Code: 73141-6 Height: 4'11" Weight: 170 lbs 04/03/2014 Blood Pressure 1: 128/80 Code: 8480-6 Heart Rate 1: 88 bpm Weight: 167 lbs 03/07/2014 Blood Pressure 1: 122/82 Code: 8480-6 BMI: 33.9 Code: 29574-8 Heart Rate 1: 68 bpm Height: 4'11" Weight: 168 lbs 11/21/2013 Blood Pressure 1: 100/58 Code: 8480-6 BMI: 33.7 Code: 02224-4 Heart Rate 1: 64 bpm Height: 4'11" Weight: 167 lbs 09/24/2013 Blood Pressure 1: 148/88 Code: 8480-6 Heart Rate 1: 68 bpm Weight: 09/19/2013 Blood Pressure 1: 120/80 Code: 8480-6 BMI: 33.9 Code: 72378-0 Heart Rate 1: 80 bpm Height: 4'11" Temperature: 36.9 (C) / 98.5 (F) Weight: 168 lbs 08/05/2013 Blood Pressure 1: 128/80 Code: 8480-6 BMI: 34.3 Code: 27291-4 Heart Rate 1: 64 bpm Height: 4'11" Temperature: 36.2 (C) / 97.2 (F) Weight: 170 lbs 07/10/2013 Blood Pressure 1: 120/84 Code: 8480-6 BMI: 36.0 Code: 82648-3 Heart Rate 1: 90 bpm Height: 4'11" SpO2: 97% Temperature: 36.8 (C) / 98.2 (F) Weight: 178 lbs 06/03/2013 Blood Pressure 1: 136/94 Code: 8480-6 BMI: 34.7 Code: 68822-0 Heart Rate 1: 68 bpm Height: 4'11" Temperature: 36.7 (C) / 98.0 (F) Weight: 172 lbs 05/13/2013 Blood Pressure 1: 132/90 Code: 8480-6 Heart Rate 1: 68 bpm 05/07/2013 Blood Pressure 1: 168/100 Code: 8480-6 BMI: 34.3 Code: 99825-3 Heart Rate 1: 76 bpm Height: 4'11" Weight: 170 lbs 12/03/2012 Blood Pressure 1: 142/78 Code: 8480-6 BMI: 33.5 Code: 90794-1 Heart Rate 1: 76 bpm Height: 4'11" Weight: 166 lbs 09/24/2012 Blood Pressure 1: 116/70 Code: 8480-6 Heart Rate 1: 68 bpm Respiratory Rate: 16 bpm Temperature: 36.9 (C) / 98.4 (F) Weight: 162 lbs 09/10/2012 Blood Pressure 1: 116/80 Code: 8480-6 BMI: 33.7 Code: 25375-2 Heart Rate 1: 76 bpm Height: 4'11" [...] 1: 149/85 Code: 8480-6 BMI: 32.9 Code: 18863-6 Heart Rate 1: 79 bpm Height: 4'11" Weight: 164 lbs 05/03/2011 Blood Pressure 1: 122/79 Code: 8480-6 BMI: 30.8 Code: 89388-5 Heart Rate 1: 72 bpm Height: 5'1" Weight: 163 lbs 04/25/2011 Blood Pressure 1: 137/84 Code: 8480-6 BMI: 31.0 Code: 60368-7 Heart Rate 1: 63 bpm Height: 5'1" [...] days ago 02/15/2012 while visiting mother in [place] had uti and was put on pyridum [...] surg in december. then took trip to [facility] to see mother and has had [...] Quality chronic 08/01/2011 states went shopping on [employer] over night without taking any of medications [...] data Encounters Encounter Performer Location Codes Date 76684 EST. PATIENT, LEVEL IV Diagnosis: Essential (primary) hypertension[ICD10: I10] Diagnosis: Mixed hyperlipidemia[ICD10: E78.2] Diagnosis: Hypothyroidism, unspecified[ICD10: E03.9] Shahida Goldman MD, [facility] CPT-4: 15588 10/30/2018 84561 EST. PATIENT, LEVEL III Diagnosis: Other mucopurulent conjunctivitis, bilateral[ICD10: H10.023] Diagnosis: Other allergic rhinitis[ICD10: J30.89] Shahida Goldman MD, [facility] CPT-4: 77338 10/08/2018 60794 EST. PATIENT, LEVEL III Diagnosis: Essential (primary) hypertension[ICD10: I10] Diagnosis: Generalized anxiety disorder[ICD10: F41.1] Isabelle Goldman MD, [facility] CPT-4: 87352 07/16/2018 ([id number]) 36585 EST. PATIENT, LEVEL III Diagnosis: Acute recurrent maxillary sinusitis[ICD10: J01.01] Diagnosis: Frequency of micturition[ICD10: R35.0] Diagnosis: Low back pain[ICD10: M54.5] [facility] CPT-4: 52375 07/10/2018 ([id number]) 34178 EST. PATIENT, LEVEL III Diagnosis: Acute recurrent maxillary sinusitis[ICD10: J01.01] Shahida Goldman MD, [facility] CPT-4: 35944 05/28/2018 ([id number]) Miscellaneous no charge Diagnosis: Laceration without foreign body, left lower leg, subsequent encounter[ICD10: S81.812D] Diagnosis: Laceration without foreign body, right lower leg, subsequent encounter[ICD10: S81.811D] Isabelle Goldman MD, [facility] CPT-4: 74595 02/08/2018 13851 EST. PATIENT, LEVEL III Diagnosis: Cellulitis of left lower limb[ICD10: L03.116] Diagnosis: Cellulitis of right lower limb[ICD10: L03.115] Diagnosis: Laceration without foreign body, left lower leg, initial encounter[ICD10: S81.812A] Diagnosis: Laceration without foreign body, right lower leg, initial encounter[ICD10: S81.811A] Isabelle Goldman MD, [facility] CPT-4: 73751 02/07/2018 ([id number]) 49188 EST. PATIENT, LEVEL IV Diagnosis: Primary generalized (osteo)arthritis[ICD10: M15.0] Diagnosis: Acute recurrent maxillary sinusitis[ICD10: J01.01] Diagnosis: Low back pain[ICD10: M54.5] Diagnosis: Other allergic rhinitis[ICD10: J30.89] Diagnosis: Obstructive sleep apnea (adult) (pediatric)[ICD10: G47.33] Shahida Goldman MD, [facility] CPT-4: 67007 01/19/2018 49621 EST. PATIENT, LEVEL IV Diagnosis: Diarrhea, unspecified[ICD10: R19.7] Diagnosis: Generalized abdominal pain[ICD10: R10.84] Diagnosis: Other allergic rhinitis[ICD10: J30.89] Diagnosis: Other acute sinusitis[ICD10: J01.80] Isabelle Goldman MD, [facility] CPT- 4: 56978 09/12/2017 71042 EST. PATIENT, LEVEL III Diagnosis: Acute laryngopharyngitis[ICD10: J06.0] Diagnosis: Other allergic rhinitis[ICD10: J30.89] Diagnosis: Cough[ICD10: R05] Diagnosis: Wheezing[ICD10: R06.2] Isabelle Goldman MD, [facility] CPT-4: 68164 07/25/2017 ([id number]) 13054 EST. PATIENT, LEVEL IV Diagnosis: Acute recurrent maxillary sinusitis[ICD10: J01.01] Diagnosis: Cervicalgia[ICD10: M54.2] Diagnosis: Diarrhea, unspecified[ICD10: R19.7] Shahida Goldman MD, [facility] CPT-4: 45459 06/27/2017 ([id number]) 98073 EST. PATIENT, LEVEL III Diagnosis: Chronic maxillary sinusitis[ICD10: J32.0] Diagnosis: Gastro-esophageal reflux disease without esophagitis[ICD10: K21.9] Shahida Goldman MD, [facility] CPT-4: 12648 05/08/2017 ([id number]) 61747 EST. PATIENT, LEVEL III Diagnosis: Acute recurrent maxillary sinusitis[ICD10: J01.01] Shahida Goldman MD, [facility] CPT-4: 78743 03/14/2017 63779 EST. PATIENT, LEVEL IV Diagnosis: Epigastric pain[ICD10: R10.13] Diagnosis: Left upper quadrant pain[ICD10: R10.12] Diagnosis: Left lower quadrant pain[ICD10: R10.32] Isabelle Goldman MD, [facility] CPT-4: 80429 02/20/2017 ([id number]) 52512 EST. PATIENT, LEVEL IV Diagnosis: Generalized anxiety disorder[ICD10: F41.1] Diagnosis: Major depressive disorder, recurrent, moderate[ICD10: F33.1] Diagnosis: Left upper quadrant pain[ICD10: R10.12] Diagnosis: Epigastric pain[ICD10: R10.13] Diagnosis: Actinic keratosis[ICD10: L57.0] Melba Goldman MD, [facility] CPT-4: 29182 02/06/2017 ([id number]) 58242 EST. PATIENT, LEVEL III Diagnosis: Actinic keratosis[ICD10: L57.0] Diagnosis: Major depressive disorder, recurrent, moderate[ICD10: F33.1] Melba Goldman MD, [facility] CPT-4: 78054 12/05/2016 ([id number]) 38780 EST. PATIENT, LEVEL III Diagnosis: Acute recurrent maxillary sinusitis[ICD10: J01.01] Diagnosis: Dysuria[ICD10: R30.0] Shahida Goldman MD, [facility] CPT-4: 56815 11/28/2016 17520 EST. PATIENT, LEVEL IV Diagnosis: Other acute sinusitis[ICD10: J01.80] Diagnosis: Acute laryngopharyngitis[ICD10: J06.0] Diagnosis: Other allergic rhinitis[ICD10: J30.89] Isabelle Goldman MD, [facility] CPT- 4: 57532 08/15/2016 ([id number]) 98141 EST. PATIENT, LEVEL III Diagnosis: Acute recurrent maxillary sinusitis[ICD10: J01.01] Diagnosis: Low back pain[ICD10: M54.5] Shahida Goldman MD, [facility] CPT-4: 08047 06/07/2016 ([id number]) Miscellaneous no charge Diagnosis: Essential (primary) hypertension[ICD10: I10] Shahida Goldman MD, [facility] CPT-4: 24790 03/15/2016 66260 EST. PATIENT, LEVEL IV Diagnosis: Essential (primary) hypertension[ICD10: I10] Diagnosis: Headache[ICD10: R51] Diagnosis: Generalized anxiety disorder[ICD10: F41.1] Shahida Goldman MD, [facility] CPT-4: 94073 03/14/2016 48285 EST. PATIENT, LEVEL III Diagnosis: Laceration without foreign body, left lower leg, initial encounter[ICD10: S81.812A] Isabelle Goldman MD, [facility] CPT-4: 08083 02/22/2016 ([id number]) 27405 EST. PATIENT, LEVEL III Diagnosis: Acute recurrent maxillary sinusitis[ICD10: J01.01] Diagnosis: Cough[ICD10: R05] Diagnosis: Allergic rhinitis due to pollen[ICD10: J30.1] Shahida Goldman MD, [facility] CPT-4: 77731 12/07/2015 ([id number]) 39906 EST. PATIENT, LEVEL IV Diagnosis: Essential (primary) hypertension[ICD10: I10] Diagnosis: Acute recurrent maxillary sinusitis[ICD10: J01.01] Diagnosis: Generalized anxiety disorder[ICD10: F41.1] Diagnosis: Cervicalgia[ICD10: M54.2] Diagnosis: Generalized intra-abdominal and pelvic swelling, mass and lump[ICD10: R19.07] Melba Goldman MD, [facility] CPT-4: 26332 11/24/2015 15690 EST. PATIENT, LEVEL III Diagnosis: Other migraine, intractable, without status migrainosus[ICD10: G43.819] Isabelle Goldman MD, [facility] CPT-4: 73832 08/27/2015 12508 EST. PATIENT, LEVEL III Diagnosis: Acute recurrent maxillary sinusitis[ICD10: J01.01] Diagnosis: Candidal stomatitis[ICD10: B37.0] Diagnosis: Acute laryngopharyngitis[ICD10: J06.0] Isabelle Goldman MD, [facility] CPT- 4: 71516 08/10/2015 57739 EST. PATIENT, LEVEL III Diagnosis: Superficial foreign body of left hand, initial encounter[ICD10: S60.552A] Melba Goldman MD, [facility] CPT-4: 30629 07/28/2015 ([id number]) 58776 EST. PATIENT, LEVEL III Diagnosis: Essential (primary) hypertension[ICD10: I10] Diagnosis: Tinea cruris[ICD10: B35.6] Diagnosis: Abnormal levels of other serum enzymes[ICD10: R74.8] Shahida Goldman MD, [facility] CPT-4: 20347 06/11/2015 ([id number]) 58058 EST. PATIENT, LEVEL IV Diagnosis: ESSENTIAL HYPERTENSION[ICD9: 401.9] Diagnosis: Hypothyroid[ICD9: 244.9] Diagnosis: ALLERGIC RHINITIS[ICD9: 477.9] Diagnosis: Anxiety[ICD9: 300.00] Diagnosis: Sleep apnea[ICD9: 780.57] Shahida Goldman MD, [facility] CPT-4: 27564 03/19/2015 ([id number]) 89286 EST. PATIENT, LEVEL III Diagnosis: ACUTE SINUSITIS[ICD9: 461.9] Celi Goldman MD, [facility] CPT-4: 89104 01/07/2015 ([id number]) 74387 EST. PATIENT, LEVEL III Diagnosis: Conjunctivitis[ICD9: 372.30] Shahida Goldman MD, [facility] CPT-4: 11741 09/23/2014 19752 EST. PATIENT, LEVEL II Diagnosis: Noninfected skin tear of leg[ICD9: 891.0] Shahida Goldman MD, [facility] CPT-4: 25554 08/05/2014 ([id number]) 23757 EST. PATIENT, LEVEL III Diagnosis: Chronic maxillary sinusitis[ICD9: 473.0] Shahida Goldman MD, [facility] CPT-4: 45946 06/23/2014 91987 EST. PATIENT, LEVEL II Diagnosis: Headache[ICD9: 784.0] Shahida Goldman MD, [facility] CPT-4: 12634 06/05/2014 ([id number]) 68108 EST. PATIENT, LEVEL III Diagnosis: Abrasion of right leg[ICD9: 916.0] Diagnosis: Headache[ICD9: 784.0] Diagnosis: ALLERGIC RHINITIS[ICD9: 477.9] Shahida Goldman MD, [facility] CPT-4: 61400 04/03/2014 02299 EST. PATIENT, LEVEL II Diagnosis: Tinea corporis[ICD9: 110.5] Diagnosis: Exposure to scabies[ICD9: V01.89] Shahida Goldman MD, [facility] CPT- 4: 32165 03/07/2014 ([id number]) 84291 EST. PATIENT, LEVEL III Diagnosis: ESSENTIAL HYPERTENSION[SNOMED: 64488011] Diagnosis: OSTEOARTH NOS-UNSPEC[ICD9: 715.90] Diagnosis: Lumbago[ICD9: 724.2] Diagnosis: Cervicalgia[ICD9: 723.1] Shahida Goldman MD, [facility] CPT-4: 47885 11/21/2013 ([id number]) 22471 EST. PATIENT, LEVEL III Diagnosis: DEPRESSIVE DISORDER NEC[ICD9: 311] Diagnosis: Paronychia[ICD9: 681.9] Melba Goldman MD, [facility] CPT-4: 64249 09/24/2013 ([id number]) 16509 EST. PATIENT, LEVEL III Diagnosis: Paronychia[ICD9: 681.9] Diagnosis: Cellulitis[ICD9: 682.9] Melba Goldman MD, [facility] CPT-4: 95528 09/19/2013 ([id number]) 56854 EST. PATIENT, LEVEL III Diagnosis: Conjunctivitis[ICD9: 372.30] Diagnosis: Thrush[ICD9: 112.0] Shahida Goldman MD, [facility] CPT-4: 06595 08/05/2013 ([id number]) 05002 EST. PATIENT, LEVEL III Diagnosis: ACUTE MAXILLARY SINUSITIS[ICD9: 461.0] Diagnosis: COUGH[ICD9: 786.2] Diagnosis: Insomnia[ICD9: 780.52] Diagnosis: ESOPHAGEAL REFLUX[ICD9: 530.81] Melba Goldman MD [facility] CPT-4: 33363 07/10/2013 ([id number]) Miscellaneous no charge Diagnosis: ESSENTIAL HYPERTENSION[SNOMED: 23433389] Melba Goldman MD [facility] CPT-4: 81979 05/13/2013 ([id number]) 44273 EST. PATIENT, LEVEL IV Diagnosis: ESSENTIAL HYPERTENSION[SNOMED: 81387330] Diagnosis: HYPOTHYROIDISM[ICD9: 244.9] Diagnosis: OSTEOARTH NOS-UNSPEC[ICD9: 715.90] Melba Goldman MD [facility] CPT- 4: 25613 05/07/2013 ([id number]) 71402 EST. PATIENT, LEVEL IV Diagnosis: Osteoarthritis[ICD9: 715.90] Diagnosis: Knee pain, bilateral[ICD9: 719.46] Diagnosis: Hip pain[ICD9: 719.45] Melba Goldman MD [facility] CPT-4: 35223 12/03/2012 ([id number]) 96765 EST. PATIENT, LEVEL III Diagnosis: Thrush[ICD9: 112.0] Melba Goldman MD [facility] CPT-4: 92584 09/24/2012 ([id number]) 13663 EST. PATIENT, LEVEL IV Diagnosis: ESSENTIAL HYPERTENSION[SNOMED: 74842562] Diagnosis: Thrush[ICD9: 112.0] Diagnosis: Sleep apnea[ICD9: 780.57] Melba Goldman MD [facility] CPT-4: 42812 09/10/2012 ([id number]) 19208 EST. PATIENT, LEVEL IV Diagnosis: Esophageal reflux[ICD9: 530.81] Diagnosis: Hypothyroid[ICD9: 244.9] Diagnosis: JOINT PAIN-MULT JOINTS[ICD9: 719.49] Diagnosis: ALLERGIC RHINITIS[ICD9: 477.9] Melba Goldman MD [facility] CPT-4: 73127 08/08/2012 ([id number]) 76616 EST. PATIENT, LEVEL IV Diagnosis: Urinary frequency[ICD9: 788.41] Diagnosis: EDEMA[ICD9: 782.3] Diagnosis: HYPOTHYROIDISM[ICD9: 244.9] Diagnosis: Fatigue[ICD9: 780.79] Melba Goldman MD, [facility] CPT-4: 42296 02/15/2012 ([id number]) 98213 EST. PATIENT, LEVEL IV Diagnosis: Abdominal pain[ICD9: 789.00] Diagnosis: Fatigue[ICD9: 780.79] Diagnosis: Nausea[ICD9: 787.02] Melba Goldman MD, [facility] CPT-4: 81853 11/10/2011 26656 EST. PATIENT, LEVEL IV Diagnosis: ESSENTIAL HYPERTENSION[SNOMED: 72883461] Diagnosis: DIARRHEA[ICD9: 787.91] Diagnosis: DEPRESSIVE DISORDER NEC[ICD9: 311] Diagnosis: Irritable bowel disease[ICD9: 564.1] Melba Goldman MD, [facility] CPT- 4: 68246 08/01/2011 82211 EST. PATIENT, LEVEL III Diagnosis: ACUTE SINUSITIS[ICD9: 461.9] Diagnosis: Cough[ICD9: 786.2] Shahida Goldman MD, [facility] CPT-4: 35339 07/14/2011 99465 EST. PATIENT, LEVEL IV Diagnosis: VACCIN FOR INFLUENZA[ICD9: V04.81] Diagnosis: ESSENTIAL HYPERTENSION[SNOMED: 73155239] Diagnosis: GENERALIZED ANXIETY DISEASE[ICD9: 300.02] Diagnosis: SLEEP DISTURBANCES[ICD9: 780.50] Shahida Goldman MD, [facility] CPT- 4: 88598 05/23/2011 16640 EST. PATIENT, LEVEL III Diagnosis: ACUTE SINUSITIS[ICD9: 461.9] Diagnosis: ALLERGIC RHINITIS[ICD9: 477.9] Diagnosis: Cough[ICD9: 786.2] Shahida Goldman MD, [facility] CPT-4: 51101 05/03/2011 53553 EST. PATIENT, LEVEL IV Diagnosis: ESSENTIAL HYPERTENSION[SNOMED: 86967939] Diagnosis: DEPRESSIVE DISORDER NEC[ICD9: 311] Diagnosis: Fatigue[ICD9: 780.79] [facility] CPT-4: 91774 04/25/2011 Plan of Care Planned Activity Notes [...] call for acute concerns. Hyperlipidemia-check fasting labs Prnamnmnecdlpo-rkbnieu-fcaym labs 10/30/2018 Visit Plan: Hypertension - uncontrolled [...] call for acute concerns. Hyperlipidemia-check fasting labs Lbaqxgxwyliiau-rjwlzyi-plnzq labs 10/30/2018 Appointment: Shahida Manzo WPtel: [phone] (30 min) Complex 10/30/2018 Patient Education: Patient Medication Summary Completed 10/30/2018 Visit Plan: Conjunctivitis - rx for eye drops/lube sent electronically to the patient's pharmacy. The patient has been instructed to cleanse affected eye with warm washcloth, then place medication into affected eye four times daily. 10/08/2018 Appointment: Shahida Manzo WPtel: [phone] (30 min) Complex 10/08/2018 Patient Education: Patient Medication Summary Completed 10/08/2018 Appointment: Isabelle Orozco WPtel: [phone] (15 min) Moderate 07/30/2018 Visit Plan: Anxiety [...] concerns. 07/16/2018 Appointment: Isabelle Orozco WPtel: [phone] [phone] (15 min) Moderate 07/16/2018 Patient Education: Patient [...] Shahida Manzo WPtel: [phone] [phone] (15 min) Moderate 07/10/2018 Patient Education: Patient Medication Summary Completed 07/10/2018 Patient Education: Back Pain Completed 07/10/2018 Visit Plan: Sinusitis - Pt has acute infection - pain in face, maxillary region, Pt informed to use decongestant, RX given to patient, sinus rinses also recommended. Call if symptoms do not show improvement. 05/28/2018 Appointment: Shahida Manzo WPtel: [phone] [phone] (30 min) Complex 05/28/2018 Patient Education: Patient [...] concerns. 02/07/2018 Appointment: Isabelle Orozco WPtel: [phone] [phone] (15 min) [facility] 02/07/2018 Patient Education: Patient Medication Summary [...] less fatigue 01/19/2018 Appointment: Shahida Manzo WPtel: [phone] (15 min) Moderate 01/19/2018 Patient Education: Patient [...] care surrogate. 11/23/2017 Appointment: Isabel[facility]co [facility]Ptel[id number] [facility] Annual Wellness Visit 11/23/2017 Patient Education: [...] Isabelle Orozco WPtel: [phone] [facility] (15 min) Moderate 09/12/2017 Patient Education: Patient [...] allergy spray. 07/25/2017 Appointment: Isabelle Orozco WPtel: [phone] [facility] (30 min) Complex 07/25/2017 Patient Education: Patient [...] available 06/27/2017 Appointment: Shahida Manzo WPtel: [facility] [place] [phone] (15 min) Moderate 06/27/2017 Patient Education: Patient [...] not improving. 05/08/2017 Appointment: Shahida Manzo WPtel: [address] [place], [place] [phone] (15 min) Moderate 05/08/2017 Patient Education: Patient [...] improvement. 03/14/2017 Appointment: Shahida Manzo WPtel: [phone] [place] (15 min) Moderate 03/14/2017 Patient Education: Patient Medication Summary Completed 03/14/2017 Appointment: Shahida Manzo WPtel: [phone] [phone] [place] (15 min) Moderate 02/21/2017 Visit Plan: [...] improving. 02/20/2017 App[facility]ment[phone] [place] ([facility] Complex [...] on use 02/06/2017 Appointment: Melba Goldman WPtel: [phone] [facility] [place] (15 min) Moderate 02/06/2017 Patient [...] patient. 12/05/2016 App[facility]ment: [phone] [facility] 12/05/2016 Patient Education: Patient [...] of control. 11/07/2016 Appointment: Isabelle Orozco WPtel: [address] [place], [place] [address] [facility] - Annual Wellness Visit 11/07/2016 Patient Education: [...] pain use. 06/07/2016 Appointment: Shah[phone] (10 min) Simple 06/07/2016 [...] office today 03/14/2016 Appointment: [phone] [place] (15 min) Moderate 03/14/2016 Patient Education: Patient Medication Summary Completed 03/14/2016 Care Plan: COMPLETE CBC AUTOMATED LOINC : 52720-6 Pending 03/14/2016 Visit Plan: Cellulitis - The patient was instructed in appropriate wound care. The patient was instructed to use the antibiotic ointment as per RX. The patient is to call for any change in symptoms, increase in size of the lesion, increase in pain. 02/22/2016 Appointment: Isabel[facility]rozco [phone] (15 min) Moderate 02/22/2016 [...] pt to follow up with specialist at [place] [address] states - she needs to pursue treatment. Anxietly - medications unchanged. colonoscopy with dr. dai 11/24/2015 Appointment: [phone] (30 min) Complex 11/24/2015 Patient Education: Patient Medication Summary Completed 11/24/2015 Patient Education: Obesity Completed 11/24/2015 Patient Education: Hypertension Completed 11/24/2015 Patient Education: .Cervicalgia Neck Pain Completed 11/24/2015 Care Plan: Referral Order SNOMED-CT : [id number] Ordered 11/24/2015 Visit Plan: Acute Migraine - [...] to monitor 06/11/2015 Appointment: Shahida Manzo WPtel: [address] [place] [phone] [place] (15 min) Moderate 06/11/2015 Patient Education: [...] OFFICE Sleep apnea-patient needs new CPAP-will contact [place] [facility] patient Pt reports that she uses her [...] OFFICE Sleep apnea-patient needs new CPAP-will contact [place] home patient Pt reports that she uses [...] OFFICE Sleep apnea-patient needs new CPAP-will contact [place] [facility] patient 03/19/2015 Appointment: (15 min) Moderate 03/19/2015 [...] Medication Summary Completed 01/07/2015 Patient Education: [facility] - Saving AutoInj - 18+ - [...] dry Exposure to scabies-RX sent to [facility]. 03/07/2014 Appointment: Melba Goldman [facility]el[phone] [facility] [place] rash 03/07/2014 Patient Education: Patient [...] change in blood pressure readings at home. Slawuac-vjccuakbtue-ehbhuicm duragesic patch-appt with Dr Ortiz for pain management 11/21/2013 Appointment: Shahida Manzo WPtel: [phone] Follow up 11/21/2013 Patient Education: Patient Medication Summary Completed 11/21/2013 Patient Education: Hypertension Completed 11/21/2013 Patient Education: .Cervicalgia Neck Pain Completed 11/21/2013 Appointment: Melba Goldman WPtel: [facility] Other 11/19/2013 Appointment: Melba Goldman WPtel: [address] [place], [place] [id number] Follow up 11/06/2013 Appointment: Melba Goldman WPtel: [facility] Lab Draw 10/15/2013 Patient Education: Patient Medication [...] BEDTIME 09/24/2013 Appointment: Shahida Manzo WPtel: [facility] [place] [address] Other 09/24/2013 Patient Education: Patient Medication Summary Completed 09/24/2013 Visit Plan: Paronychia/Cellulitis - continue with oral antibiotics as previously directed, return to clinic as previously directed, call for acute change in symptoms, worsening redness, warmth, discharge. 09/19/2013 Appointment: Melba Goldman WPtel: [facility] Other 09/19/2013 Patient Education: Patient Medication Summary Completed 09/19/2013 Visit Plan: Conjunctivitis - rx for eye drops/lube sent electronically to the patient's pharmacy. The patient has been instructed to cleanse affected eye with warm washcloth, then place medication into affected eye four times daily. Thrush-refill nystatin-call if symptoms do not resolve 08/05/2013 Appointment: Shahida Manzo WPtel: [facility] Sick 08/05/2013 Patient Education: Patient Medication Summary [...] improvement. 06/03/2013 Appointment: Mel[facility]el[phone] Follow up 06/03/2013 Patient Education: Patient Medication Summary Completed 06/03/2013 Patient Education: Hypertension Completed 06/03/2013 Appointment: Mel[facility]el[phone] Nurse Visit 05/13/2013 Patient Education: Patient [...] control. 05/07/2013 Appointment: Mel[facility]el[phone] Follow up 05/07/2013 Patient Education: Patient Medication Summary Completed 05/07/2013 Patient Education: Hypertension Completed 05/07/2013 Patient Education: Patient Medication Summary Completed 04/30/2013 Patient Education: Hypertension Completed 04/30/2013 Visit Plan: Arthritis- occasionally uncontrolled symptoms- recommend pt to take antiinflammatory as directed for pain control. Use tylenol for break through pain symptoms. 12/03/2012 Appointment: Melba Goldman WPtel: [facility] Follow up 12/03/2012 Patient Education: Patient [...] resolve 09/24/2012 Appointment: Shahida Manzo [facility]Ptel: [phone] [facility] 09/24/2012 Patient Education: Patient Medication Summary [...] diflucan 09/10/2012 Appointment: Melba Goldman WPtel: [facility] Follow up 09/10/2012 Patient Education: Patient [...] Appointment: Shahida [facility]zo [facility]el[phone] Follow up 08/08/2012 Patient Education: Patient Medication Summary Completed 08/08/2012 Patient Education: Patient Medication Summary Completed 08/07/2012 Patient Education: Hypertension Completed 08/07/2012 Appointment: Melba Goldman [facility]el: [phone] [place] Lab Draw 02/16/2012 Patient Education: [...] labs. 02/15/2012 Appointment: Melba Goldman WPtel: [phone] [facility] Other 02/15/2012 Patient Education: Patient Medication Summary Completed 02/15/2012 Visit Plan: Abdominal pain - ultrasound tomorrow AM nothing to eat before the ultrasound from 11pm tonight bland diet. Nausea - worse with fatty foods, recommended low fat/bland diet, call if symptoms worsening. 11/10/2011 Appointment: Logan Goldmany WPtel: [phone] [facility] Other 11/10/2011 Patient Education: Patient Medication [...] stools. 08/01/2011 Appointment: Susi Melba WPtel: [phone] [facility] Other 08/01/2011 Patient Education: Patient Medication Summary Completed 08/01/2011 Patient Education: High Blood Pressure: Essential Hypertension Completed 08/01/2011 Visit Plan: Sinusitis - Pt has acute infection - pain in face, maxillary region, Pt informed to use decongestant, RX given to patient, sinus rinses also recommended. Call if symptoms do not show improvement. Cough- tessalon pearles 07/14/2011 Appointment: Shahida Manzo WPtel: [address] [place] [address] Other 07/14/2011 Patient Education: Patient Medication Summary [...] the office. 05/23/2011 Appointment: Shahida Manzo WPtel: [address] [place] [address] Other 05/23/2011 Patient Education: Patient Medication Summary [...] cough med 05/03/2011 Appointment: Shahida Manzo WPtel: [facility] [place] [phone] Other 05/03/2011 Patient Education: Patient Medication Summary [...] OFFICE Sleep apnea-patient needs new CPAP-will contact [place] home patient Pt reports that she uses [...] OFFICE Sleep apnea-patient needs new CPAP-will contact [place] home patient Pt reports that she uses [...] OFFICE Sleep apnea-patient needs new CPAP-will contact [place] home patient LOSARTAN 50MG DAILY MONITOR BLOOD [...] call for acute concerns. Hyperlipidemia-check fasting labs Rxqygheoabrgah-pxxsvks-zqwwx labs LOSARTAN 50MG DAILY MONITOR BLOOD PRESSURE [...] call for acute concerns. Hyperlipidemia-check fasting labs Sfkarfuehvfbwk-xhmpuro-qgpqt labs . Sinusitis - Pt has acute [...] show improvement. [facility] [...] areas dry [facility] rocephin/kenalog . Sinusitis - Pt [...] change in blood pressure readings at home. Kbxscjd-sdlntxlnflb-pokehkff duragesic patch-appt with Dr Ortiz for pain [...]
--- OUTSIDE RECORDS SUMMARY | 2019-03-08 16:01 | XMS REPORT | CCD ---
Author Author [facility] Address [address] [place] [address] Phone Care Team Providers Care Visitor Services Assistant Name Role Phone PP Unavailable CCM Unavailable Summary Purpose Interface Exchange Insurance Providers Payer name Policy type / Coverage type Covered alliance party ID Effective Begin Date Effective End Date [employer] Medicare Part B [id number] Unknown Family history Son Diagnosis Age At Onset Crohn's disease Unknown Brother Diagnosis Age At Onset Cardiovascular disease Unknown Mother Diagnosis Age At Onset Hypertension Unknown Father Diagnosis Age At Onset Cardiovascular disease Unknown Social History Social History Element Codes Description Effective Dates Marital status Unknown 04/22/2011 Number of children Unknown 3 1 son -Crohns 04/22/[address]: 906972274 Nonsmoker 04/22/2011 Allergies, Adverse Reactions, Alerts Substance [...] Start Date Stop Date Status Fill Instructions losartan 50 mg tablet RxNorm: 489725 1 Tablet(s) PO daily 10/30/2018 04/27/2019 Active Tamiflu 75 mg capsule RxNorm: 805142 1 Capsule(s) PO daily 10/30/2018 11/08/2018 Active Synthroid 100 mcg tablet RxNorm: 396974 1 Tablet(s) PO daily 10/30/2018 04/27/2019 Active Brand name only! Lexapro 20 mg tablet RxNorm: 945865 TAKE ONE AND ONE-HALF TABLET BY MOUTH DAILY 10/23/2018 10/17/2019 Active alprazolam 0.25 mg tablet RxNorm: 882509 1 Tablet(s) PO TID as needed 10/10/2018 01/07/2019 Active polymyxin B sulfate 10,000 unit-trimethoprim 1 mg/mL eye drops RxNorm: 946053 2 Drop(s) ophthalmic (eye) QID 10/08/2018 10/14/2018 Inactive hydrocodone 10 mg-acetaminophen 325 mg tablet RxNorm: 829483 Tablet(s) PO TAKE ONE TO TWO TABLETS BY MOUTH EVERY 6 HOURS NEEDED FOR PAIN 09/11/2018 09/25/2018 Inactive piroxicam 20 mg capsule RxNorm: 330989 TAKE ONE CAPSULE BY MOUTH DAILY 08/09/2018 01/05/2019 Active trazodone 50 mg tablet RxNorm: 091928 TAKE ONE AND ONE-HALF (1 1/2) TABLET BY MOUTH AT BEDTIME. MAY INCREASE TO 2 TABLETS AT BEDTIME NEEDED 08/02/2018 11/19/2018 Active Nexium 40 mg capsule,delayed release RxNorm: 498444 TAKE ONE CAPSULE BY MOUTH TWICE A DAY 07/23/2018 11/19/2018 Active Bystolic 5 mg tablet RxNorm: 250193 1 Tablet(s) PO daily to take with 10 mg daily to equal 15mg daily 07/17/2018 10/29/2018 Inactive alprazolam 0.25 mg tablet RxNorm: 268027 1 Tablet(s) PO TID as needed 07/16/2018 10/29/2018 Inactive hydrocodone 10 mg-acetaminophen 325 mg tablet RxNorm: 512016 Tablet(s) PO TAKE ONE TO TWO TABLETS BY MOUTH EVERY 6 HOURS NEEDED FOR PAIN 07/10/2018 07/24/2018 Inactive prednisone 20 mg tablet RxNorm: 340139 1 Tablet(s) PO BID 07/10/2018 07/14/2018 Inactive Phenergan with Codeine Syrup RxNorm: 5-10 Milliliter(s) PO Q6 PRN 06/28/2018 No Stop Date Active prednisone 20 mg tablet RxNorm: 537732 2 Tablet(s) PO daily 05/31/2018 06/04/2018 Inactive prednisone 20 mg tablet RxNorm: 855223 2 Tablet(s) PO daily 05/31/2018 05/30/2018 Inactive ceftriaxone 500 mg solution for injection RxNorm: 2168787 Inj 05/28/2018 05/28/2018 Inactive doxycycline hyclate 100 mg tablet RxNorm: 1789567 1 Tablet(s) PO BID 05/28/2018 06/06/2018 Inactive Kenalog 40 mg/mL suspension for injection RxNorm: 1376494 Milliliter(s) Inj 05/28/2018 05/28/2018 Inactive hydrocodone 10 mg-acetaminophen 325 mg tablet RxNorm: 975796 Tablet(s) PO TAKE ONE TO TWO TABLETS BY MOUTH EVERY 6 HOURS NEEDED FOR PAIN 05/09/2018 05/23/2018 Inactive alprazolam 0.25 mg tablet RxNorm: 526210 1 Tablet(s) PO daily as needed 04/25/2018 07/15/2018 Inactive Bystolic 10 mg tablet RxNorm: 291432 TAKE ONE TABLET BY MOUTH DAILY 04/16/2018 09/12/2018 Inactive hydrocodone 10 mg-acetaminophen 325 mg tablet RxNorm: 861766 Tablet(s) PO TAKE ONE TO TWO TABLETS BY MOUTH EVERY 6 HOURS NEEDED FOR PAIN 03/06/2018 03/20/2018 Inactive trazodone 50 mg tablet RxNorm: 695195 TAKE ONE AND ONE-HALF (1 1/2) TABLET BY MOUTH AT BEDTIME. MAY INCREASE TO 2 TABLETS AT BEDTIME NEEDED 02/23/2018 06/12/2018 Inactive mupirocin 2 % topical ointment RxNorm: 160607 1 TOP BID 02/09/2018 05/27/2018 Inactive Zofran 4 mg tablet RxNorm: 921430 1 Tablet(s) PO TID as needed 02/08/2018 No Stop Date Active Keflex 500 mg capsule RxNorm: 730272 1 Capsule(s) PO TID 02/07/2018 02/13/2018 Inactive alprazolam 0.25 mg tablet RxNorm: 874011 1 Tablet(s) PO daily as needed 01/24/2018 07/09/2018 Inactive hydrocodone 10 mg-acetaminophen 325 mg tablet RxNorm: 525831 Tablet(s) PO TAKE ONE TO TWO TABLETS BY MOUTH EVERY 6 HOURS NEEDED FOR PAIN 01/19/2018 02/02/2018 Inactive hydrochlorothiazide 25 mg tablet RxNorm: 622236 Tablet(s) TAKE ONE TABLET BY MOUTH DAILY 01/19/2018 01/19/2018 Inactive Kenalog 40 mg/mL suspension for injection RxNorm: 5620274 1 Milliliter(s) Inj 01/19/2018 01/19/2018 Inactive piroxicam 20 mg capsule RxNorm: 199024 1 Capsule(s) PO daily 01/19/2018 07/17/2018 Inactive D/C ORDER FOR HCTZ ceftriaxone 500 mg solution for injection RxNorm: 4289387 500 Milligram(s) Inj 01/19/2018 01/19/2018 Inactive Nexium 40 mg capsule,delayed release RxNorm: 648258 TAKE ONE CAPSULE BY MOUTH TWICE A DAY 01/18/2018 04/17/2018 Inactive Nexium 40 mg capsule,delayed release RxNorm: 347428 TAKE ONE CAPSULE BY MOUTH TWICE A DAY 01/15/2018 04/14/2018 Inactive ciprofloxacin 0.3 % eye drops RxNorm: 965569 2 Drop(s) ophthalmic (eye) Q2H while awake x 2 days, then Q4H x 5 days 11/23/2017 05/27/2018 Inactive Keflex 500 mg capsule RxNorm: 493424 1 Capsule(s) PO TID 11/23/2017 11/29/2017 Inactive hydrocodone 10 mg-acetaminophen 325 mg tablet RxNorm: 016524 Tablet(s) PO TAKE ONE TO TWO TABLETS BY MOUTH EVERY 6 HOURS NEEDED FOR PAIN 10/30/2017 11/13/2017 Inactive Augmentin 500 mg-125 mg tablet RxNorm: 291002 1 Tablet(s) PO TID 10/27/2017 11/05/2017 Inactive alprazolam 0.25 mg tablet RxNorm: 090632 1 Tablet(s) PO daily as needed 10/26/2017 04/24/2018 Inactive trazodone 50 mg tablet RxNorm: 141038 TAKE ONE AND ONE-HALF (1 1/2) TABLET BY MOUTH AT BEDTIME. MAY INCREASE TO 2 TABLETS AT BEDTIME NEEDED 09/25/2017 02/03/2018 Inactive Lexapro 20 mg tablet RxNorm: 831117 TAKE ONE AND ONE-HALF TABLET BY MOUTH DAILY 09/15/2017 09/09/2018 Inactive Flagyl 500 mg tablet RxNorm: 303883 1 Tablet(s) PO TID 09/12/2017 09/21/2017 Inactive promethazine 25 mg tablet RxNorm: 828642 1 Tablet(s) PO TID as needed nausea and vomitting THIS WILL MAKE YOU SLEEPY 09/12/2017 11/08/2017 Inactive Keflex 500 mg capsule RxNorm: 825919 1 Capsule(s) PO QID 08/25/2017 08/31/2017 Inactive [SAVINGS FOR UNINSURED PATIENTS -- [id number], PCN: [id number], Group: [id number], ID# [id number], Process claim through [employer], for questions: . THIS IS NOT INSURANCE.] alprazolam 0.25 mg tablet RxNorm: 679548 1 Tablet(s) PO daily as needed 07/31/2017 04/24/2018 Inactive prednisone 20 mg tablet RxNorm: 700553 2 Tablet(s) PO daily 07/25/2017 07/29/2017 Inactive Augmentin 500 mg-125 mg tablet RxNorm: 903079 1 Tablet(s) PO TID 07/25/2017 08/03/2017 Inactive trazodone 50 mg tablet RxNorm: 718710 TAKE ONE AND ONE-HALF (1 1/2) TABLET BY MOUTH AT BEDTIME. MAY INCREASE TO 2 TABLETS AT BEDTIME NEEDED 06/30/2017 09/03/2017 Inactive Bystolic 10 mg tablet RxNorm: 085260 TAKE ONE TABLET BY MOUTH DAILY 06/30/2017 2017 Inactive hydrochlorothiazide 25 mg tablet RxNorm: 122854 TAKE ONE TABLET BY MOUTH DAILY 06/30/2017 01/18/2018 Inactive Flagyl 500 mg tablet RxNorm: 527905 1 Tablet(s) PO TID 06/27/2017 07/03/2017 Inactive Phenergan with Codeine Syrup RxNorm: 5-10 Milliliter(s) PO Q6 PRN 06/27/2017 11/15/2017 Inactive Levaquin 500 mg tablet RxNorm: 097500 1 Tablet(s) PO daily 06/27/2017 07/03/2017 Inactive Kenalog 40 mg/mL suspension for injection RxNorm: 7111692 1 Milliliter(s) Inj 06/27/2017 06/27/2017 Inactive Nexium 40 mg capsule,delayed release RxNorm: 461273 1 Capsule(s) PO BID TAKE ONE CAPSULE BY MOUTH BID 05/22/2017 09/18/2017 Inactive Nexium 40 mg capsule,delayed release RxNorm: 994861 1 Capsule(s) PO BID TAKE ONE CAPSULE BY MOUTH BID 05/22/2017 05/21/2017 Inactive hydrocodone 10 mg-acetaminophen 325 mg tablet RxNorm: 993711 Tablet(s) PO TAKE ONE TO TWO TABLETS BY MOUTH EVERY 6 HOURS NEEDED FOR PAIN 05/17/2017 06/15/2017 Inactive Nexium 40 mg capsule,delayed release RxNorm: 986556 Capsule(s) TAKE ONE CAPSULE BY MOUTH BID 05/17/2017 05/21/2017 Inactive alprazolam 0.25 mg tablet RxNorm: 589086 1 Tablet(s) PO daily as needed 05/03/2017 07/01/2017 Inactive Levaquin 500 mg tablet RxNorm: 327047 1 Tablet(s) PO daily 04/20/2017 04/26/2017 Inactive clotrimazole 1 % topical cream RxNorm: 359049 1 Application TOP BID 04/20/2017 11/07/2017 Inactive Kenalog 40 mg/mL suspension for injection RxNorm: 2732518 Milliliter(s) Inj 04/20/2017 04/20/2017 Inactive nystatin 100,000 unit/gram topical powder RxNorm: 752398 1 Gram(s) APPLY TOPICALLY TWO TIMES A DAY 04/10/2017 07/08/2017 Inactive trazodone 50 mg tablet RxNorm: 240317 TAKE ONE AND ONE-HALF (1 1/2) TABLET BY MOUTH AT BEDTIME. MAY INCREASE TO 2 TABLETS AT BEDTIME NEEDED 03/28/2017 06/23/2017 Inactive Augmentin 875 mg-125 mg tablet RxNorm: 920520 1 Tablet(s) PO BID 03/14/2017 03/20/2017 Inactive Kenalog 40 mg/mL suspension for injection RxNorm: 4563676 1 Milliliter(s) Inj 03/14/2017 03/14/2017 Inactive Lexapro 20 mg tablet RxNorm: 541660 1.5 Tablet(s) PO daily 03/08/2017 03/07/2017 Inactive Lexapro 20 mg tablet RxNorm: 801333 1.5 Tablet(s) PO daily 03/08/2017 07/05/2017 Inactive alprazolam 0.25 mg tablet RxNorm: 819041 1 Tablet(s) PO daily as needed 02/23/2017 04/23/2017 Inactive (Response to an electronic controlled substance refill request - RxReferenceNumber: [id number]) Flagyl 500 mg tablet RxNorm: 913244 1 Tablet(s) PO TID 02/20/2017 03/01/2017 Inactive promethazine 25 mg tablet RxNorm: 442586 1 Tablet(s) PO TID as needed nausea 02/20/2017 03/01/2017 Inactive Cipro 500 mg tablet RxNorm: 359656 1 Tablet(s) PO BID 02/20/2017 03/01/2017 Inactive Flagyl 500 mg tablet RxNorm: 448660 1 Tablet(s) PO TID 02/09/2017 02/15/2017 Inactive Trintellix 10 mg tablet RxNorm: 7470638 1 Tablet(s) PO QAM 02/06/2017 03/07/2017 Inactive Efudex 5 % topical cream RxNorm: 269862 1 Application TOP BID use on skin spot on nose 02/06/2017 02/15/2017 Inactive Bystolic 10 mg tablet RxNorm: 010483 TAKE ONE TABLET BY MOUTH DAILY 02/03/2017 06/02/2017 Inactive Imitrex 50 mg tablet RxNorm: 806797 TAKE ONE TABLET BY MOUTH EVERY 8 HOURS NEEDED MAY REPEAT IN 1 HOUR OF INITIAL DOSE. DISCONTINUE FIORICET 12/22/2016 02/19/2017 Inactive Nexium 40 mg capsule,delayed release RxNorm: 641591 TAKE ONE CAPSULE BY MOUTH EVERY DAY 12/21/2016 05/16/2017 Inactive Lexapro 20 mg tablet RxNorm: 334423 Tablet(s) TAKE ONE TABLET BY MOUTH DAILY 12/05/2016 02/05/2017 Inactive Augmentin 875 mg-125 mg tablet RxNorm: 792652 1 Tablet(s) PO BID 11/28/2016 12/04/2016 Inactive ceftriaxone 500 mg solution for injection RxNorm: 0293389 1 Milliliter(s) Inj 11/28/2016 11/28/2016 Inactive hydrocodone 10 mg-acetaminophen 325 mg tablet RxNorm: 064594 Tablet(s) PO TAKE ONE TO TWO TABLETS BY MOUTH EVERY 6 HOURS NEEDED FOR PAIN 11/28/2016 05/16/2017 Inactive (Appended: Controlled substance eRx refill - RxReferenceNumber: [id number]) prednisone 20 mg tablet RxNorm: 441771 2 Tablet(s) PO daily 11/28/2016 12/02/2016 Inactive trazodone 50 mg tablet RxNorm: 093137 Tablet(s) TAKE 1 AND 1/2 TABLETS EVERY NIGHT AT BEDTIME , MAY INCREASE TO 2 TABLETS AT BEDTIME NEEDED 11/21/2016 11/20/2016 Inactive Synthroid 100 mcg tablet RxNorm: 565427 1 Tablet(s) PO daily 11/21/2016 05/19/2017 Inactive Brand name only! trazodone 50 mg tablet RxNorm: 909957 TAKE 1 AND 1/2 TABLETS EVERY NIGHT AT BEDTIME , MAY INCREASE TO 2 TABLETS AT BEDTIME NEEDED 11/21/2016 08/01/2018 Inactive Synthroid 100 mcg tablet RxNorm: 632490 1 Tablet(s) PO daily TAKE ONE TABLET BY MOUTH DAILY 11/08/2016 11/20/2016 Inactive ceftriaxone 500 mg solution for injection RxNorm: 2583949 Inj 11/07/2016 11/07/2016 Inactive Kenalog 40 mg/mL suspension for injection RxNorm: 8374113 Milliliter(s) Inj 11/07/2016 11/07/2016 Inactive Xanax 0.25 mg tablet RxNorm: 273210 1 Tablet(s) PO daily as needed 10/31/2016 05/02/2017 Inactive alprazolam 0.25 mg tablet RxNorm: 010789 1 Tablet(s) PO daily as needed 10/21/2016 12/18/2016 Inactive (Response to an electronic controlled substance refill request - RxReferenceNumber: [id number]) hydrochlorothiazide 25 mg tablet RxNorm: 164082 TAKE ONE TABLET BY MOUTH DAILY 10/11/2016 04/08/2017 Inactive Xanax 0.25 mg tablet RxNorm: 674505 1 Tablet(s) PO daily as needed 08/23/2016 10/19/2016 Inactive Flonase Allergy Relief 50 mcg/actuation nasal spray,suspension RxNorm: 2707870 1 [place] NASAL daily 08/15/2016 No Stop Date Active amoxicillin 500 mg capsule RxNorm: 461317 1 Capsule(s) PO TID 08/15/2016 08/24/2016 Inactive Bystolic 10 mg tablet RxNorm: 325463 TAKE ONE TABLET BY MOUTH DAILY 08/01/2016 12/28/2016 Inactive trazodone 50 mg tablet RxNorm: 250008 TAKE 1 AND 1/2 TABLETS EVERY NIGHT AT BEDTIME , MAY INCREASE TO 2 TABLETS AT BEDTIME NEEDED 07/25/2016 11/11/2016 Inactive alprazolam 0.25 mg tablet RxNorm: 801038 1 Tablet(s) PO daily as needed 07/25/2016 08/22/2016 Inactive (Response to an electronic controlled substance refill request - RxReferenceNumber: [id number]) Imitrex 50 mg tablet RxNorm: 289297 1 Tablet(s) PO Q8 as needed may repeat x1 dose in 1 hour of inital dose. 07/13/2016 No Stop Date Active Lexapro 20 mg tablet RxNorm: 305814 TAKE 1/2 TABLET BY MOUTH DAILY FOR 10 DAYS, THEN TAKE ONE TABLET BY MOUTH DAILY 06/27/2016 11/23/2016 Inactive Synthroid 100 mcg tablet RxNorm: 672662 TAKE ONE TABLET BY MOUTH DAILY 06/20/2016 11/07/2016 Inactive Augmentin 500 mg-125 mg tablet RxNorm: 873073 1 Tablet(s) PO TID 06/07/2016 06/13/2016 Inactive hydrocodone 10 mg-acetaminophen 325 mg tablet RxNorm: 903032 Tablet(s) PO TAKE ONE TO TWO TABLETS BY MOUTH EVERY 6 HOURS NEEDED FOR PAIN 06/07/2016 11/27/2016 Inactive (Appended: Controlled substance eRx refill - RxReferenceNumber: [id number]) hydrochlorothiazide 25 mg tablet RxNorm: 691503 TAKE ONE TABLET BY MOUTH DAILY 03/14/2016 09/09/2016 Inactive Edarbi 40 mg tablet RxNorm: 5904442 1 Tablet(s) PO daily 03/14/2016 06/06/2016 Inactive trazodone 50 mg tablet RxNorm: 164337 Tablet(s) TAKE 1 AND 1/2 TABLET AT BEDTIME. MAY INCREASE TO 2 TABLETS IF NECESSARY 02/25/2016 07/05/2016 Inactive Imitrex 50 mg tablet RxNorm: 224697 1 Tablet(s) PO Q8 as needed may repeat x1 dose in 1 hour of inital dose. 02/25/2016 07/12/2016 Inactive dc fioricet Xanax 0.25 mg tablet RxNorm: 270758 1 Tablet(s) PO daily as needed 02/24/2016 07/21/2016 Inactive mupirocin 2 % topical ointment RxNorm: 089031 1 TOP BID 02/22/2016 11/08/2017 Inactive Bactrim DS 800 mg-160 mg tablet RxNorm: 880470 1 Tablet(s) PO BID 02/22/2016 03/02/2016 Inactive Fioricet 50 mg-325 mg-40 mg tablet RxNorm: 226894 Tablet(s) TAKE ONE TABLET BY MOUTH EVERY 4 HOURS NEEDED FOR headache 02/12/2016 02/24/2016 Inactive (Response to an electronic controlled substance refill request - RxReferenceNumber: [id number]) Fioricet 50 mg-325 mg-40 mg tablet RxNorm: 536249 Tablet(s) TAKE ONE TABLET BY MOUTH EVERY 4 HOURS NEEDED FOR headache 02/12/2016 02/11/2016 Inactive (Response to an electronic controlled substance refill request - RxReferenceNumber: [id number]) Nexium 40 mg capsule,delayed release RxNorm: 658631 TAKE ONE CAPSULE BY MOUTH EVERY DAY 02/01/2016 10/27/2016 Inactive Bystolic 10 mg tablet RxNorm: 226662 Tablet(s) TAKE ONE TABLET BY MOUTH DAILY 01/06/2016 07/03/2016 Inactive Xanax 0.25 mg tablet RxNorm: 755382 1 Tablet(s) PO daily as needed 12/28/2015 02/23/2016 Inactive Levaquin 500 mg tablet RxNorm: 300599 1 Tablet(s) PO daily take a probiotic daily 12/14/2015 02/11/2016 Inactive Levaquin 500 mg tablet RxNorm: 124862 1 Tablet(s) PO daily take a probiotic daily 12/14/2015 12/13/2015 Inactive prednisone 20 mg tablet RxNorm: 382803 1 Tablet(s) PO BID 12/07/2015 12/13/2015 Inactive Augmentin 875 mg-125 mg tablet RxNorm: 199971 1 Tablet(s) PO BID 12/07/2015 12/13/2015 Inactive ceftriaxone 500 mg solution for injection RxNorm: 8031385 Inj 12/07/2015 12/07/2015 Inactive Phenergan with Codeine Syrup RxNorm: 5-10 Milliliter(s) PO Q6 PRN 12/07/2015 06/26/2017 Inactive alprazolam 0.25 mg tablet RxNorm: 266618 1 Tablet(s) PO daily as needed 11/27/2015 12/25/2015 Inactive (Response to an electronic controlled substance refill request - RxReferenceNumber: [id number]) trazodone 50 mg tablet RxNorm: 804242 TAKE 1 AND 1/2 TABLET AT BEDTIME FOR 2 WEEKS, MAY INCREASE TO 2 TABLETS IF NECESSARY AFTER THAT 11/26/2015 02/24/2016 Inactive ceftriaxone 500 mg solution for injection RxNorm: 3226572 Milliliter(s) Inj 11/24/2015 11/24/2015 Inactive prednisone 10 mg tablet RxNorm: 401218 3 Tablet(s) PO daily 11/24/2015 11/28/2015 Inactive cefdinir 300 mg capsule RxNorm: 578227 1 Capsule(s) PO BID 11/24/2015 11/30/2015 Inactive Kenalog 40 mg/mL suspension for injection RxNorm: 9686862 1 Milliliter(s) Inj 11/24/2015 11/24/2015 Inactive Lexapro 20 mg tablet RxNorm: 394837 TAKE 1/2 TABLET BY MOUTH DAILY FOR 10 DAYS, THEN TAKE ONE TABLET BY MOUTH DAILY 11/23/2015 05/20/2016 Inactive Lipitor 10 mg tablet RxNorm: 438132 Tablet(s) TAKE ONE TABLET BY MOUTH EVERY DAY 10/26/2015 11/06/2016 Inactive Norvasc 10 mg tablet RxNorm: 687371 Tablet(s) PO TAKE ONE TABLET BY MOUTH EVERY DAY 10/26/2015 01/18/2018 Inactive hydrochlorothiazide 25 mg tablet RxNorm: 612217 TAKE ONE TABLET BY MOUTH DAILY 10/20/2015 01/17/2016 Inactive promethazine 25 mg/mL injection solution RxNorm: 537270 Milliliter(s) Inj 08/27/2015 08/27/2015 Inactive ketorolac 60 mg/2 mL intramuscular solution RxNorm: 638549 Milliliter(s) IM 08/27/2015 08/27/2015 Inactive alprazolam 0.25 mg tablet RxNorm: 672542 1 Tablet(s) PO daily as needed 08/27/2015 10/25/2017 Inactive (Response to an electronic controlled substance refill request - RxReferenceNumber: [id number]) Lexapro 20 mg tablet RxNorm: 193435 TAKE 1/2 TABLET BY MOUTH DAILY FOR 10 DAYS, THEN TAKE ONE TABLET BY MOUTH DAILY 08/13/2015 11/10/2015 Inactive Flonase 50 mcg/actuation nasal spray,suspension RxNorm: 261622 PLACE 1 SPRAY IN EACH NOSTRIL DAILY 08/13/2015 02/08/2016 Inactive Augmentin 500 mg-125 mg tablet RxNorm: 128351 1 Tablet(s) PO TID 08/10/2015 08/16/2015 Inactive Kenalog 40 mg/mL suspension for injection RxNorm: 9563939 Milliliter(s) Inj 08/10/2015 08/10/2015 Inactive ceftriaxone 500 mg solution for injection RxNorm: 7393208 Inj 08/10/2015 08/10/2015 Inactive nystatin 100,000 unit/mL oral suspension RxNorm: 796371 4 Milliliter(s) PO QID 08/10/2015 08/16/2015 Inactive trazodone 50 mg tablet RxNorm: 048619 TAKE 1 AND 1/2 TABLET AT BEDTIME FOR 2 WEEKS, MAY INCREASE TO 2 TABLETS IF NECESSARY AFTER THAT 07/31/2015 11/25/2015 Inactive ceftriaxone 500 mg solution for injection RxNorm: 1259750 1 Milliliter(s) Inj 07/28/2015 07/28/2015 Inactive Bactrim DS 800 mg-160 mg tablet RxNorm: 655929 1 Tablet(s) PO BID 07/28/2015 08/06/2015 Inactive Bactroban 2 % topical ointment RxNorm: 979128 1 Application TOP BID 07/28/2015 08/06/2015 Inactive Diflucan 150 mg tablet RxNorm: 980461 1 Tablet(s) PO daily 06/11/2015 06/17/2015 Inactive clotrimazole 1 % topical cream RxNorm: 741286 1 Application TOP BID 06/11/2015 07/10/2015 Inactive Bystolic 10 mg tablet RxNorm: 188603 TAKE ONE TABLET BY MOUTH DAILY 06/08/2015 12/04/2015 Inactive alprazolam 0.25 mg tablet RxNorm: 074775 1 Tablet(s) PO daily as needed 06/01/2015 08/25/2015 Inactive (Response to an electronic controlled substance refill request - RxReferenceNumber: [id number]) Fioricet 50 mg-325 mg-40 mg tablet RxNorm: 612542 Tablet(s) TAKE ONE TABLET BY MOUTH EVERY 4 HOURS NEEDED FOR headache 05/28/2015 06/08/2015 Inactive (Response to an electronic controlled substance refill request - RxReferenceNumber: [id number]) trazodone 50 mg tablet RxNorm: 995799 TAKE 1 AND 1/2 TABLET AT BEDTIME FOR 2 WEEKS, MAY INCREASE TO 2 TABLETS IF NECESSARY AFTER THAT 05/25/2015 08/22/2015 Inactive trazodone 50 mg tablet RxNorm: 378702 TAKE 1 AND 1/2 TABLET AT BEDTIME FOR 2 WEEKS, MAY INCREASE TO 2 TABLETS IF NECESSARY AFTER THAT 05/25/2015 05/24/2015 Inactive Synthroid 100 mcg tablet RxNorm: 412484 TAKE ONE TABLET BY MOUTH DAILY 04/23/2015 01/17/2016 Inactive Lipitor 10 mg tablet RxNorm: 126654 TAKE ONE TABLET BY MOUTH EVERY DAY 04/23/2015 10/25/2015 Inactive Kenalog 40 mg/mL suspension for injection RxNorm: 9280884 Milliliter(s) Inj 03/19/2015 03/19/2015 Inactive Lexapro 20 mg tablet RxNorm: 926517 1 Tablet(s) PO daily 03/19/2015 07/16/2015 Inactive 1/2 tab daily x 10 days then 1 tab daily hydrocodone 10 mg-acetaminophen 325 mg tablet RxNorm: 154201 Tablet(s) PO TAKE ONE TO TWO TABLETS BY MOUTH EVERY 6 HOURS NEEDED FOR PAIN 03/19/2015 06/06/2016 Inactive (Appended: Controlled substance eRx refill - RxReferenceNumber: [id number]) Carafate 1 gram tablet RxNorm: 663789 1 Tablet(s) PO AC & HS 03/19/2015 06/16/2015 Inactive dissolve in water and take as a slurry hydrochlorothiazide 25 mg tablet RxNorm: 411603 1 Tablet(s) PO daily 03/12/2015 09/07/2015 Inactive Nexium 40 mg capsule,delayed release RxNorm: 323799 TAKE ONE CAPSULE BY MOUTH EVERY DAY 02/26/2015 12/22/2015 Inactive Cymbalta 60 mg capsule,delayed release RxNorm: 162368 TAKE ONE CAPSULE BY MOUTH TWICE A DAY 02/23/2015 03/18/2015 Inactive alprazolam 0.25 mg tablet RxNorm: 404621 1 Tablet(s) PO daily as needed 02/11/2015 05/10/2015 Inactive (Response to an electronic controlled substance refill request - RxReferenceNumber: [id number]) trazodone 50 mg tablet RxNorm: 167397 TAKE 1 AND 1/2 TABLET AT BEDTIME FOR 2 WEEKS, MAY INCREASE TO 2 TABLETS IF NECESSARY AFTER THAT 01/27/2015 05/24/2015 Inactive Augmentin 500 mg-125 mg tablet RxNorm: 140139 1 Tablet(s) PO TID 01/07/2015 01/13/2015 Inactive gentamicin 0.3 % eye drops RxNorm: 141450 3 Drop(s) OPH QID 01/07/2015 01/13/2015 Inactive [AttnRPh: Saving apply/adjudicate RxGRP:[id number] RxBIN:[id number] RxPCN: ID#:[id number]] scopolamine 1.5 mg transdermal 72 hour patch RxNorm: 846790 1 Patch TD q72 hours 01/07/2015 11/23/2015 Inactive Synthroid 100 mcg tablet RxNorm: 785326 TAKE ONE TABLET BY MOUTH ONCE A DAY 01/06/2015 04/22/2015 Inactive nystatin 100,000 unit/gram topical powder RxNorm: 541120 APPLY TOPICALLY TWO TIMES A DAY 12/18/2014 03/17/2015 Inactive alprazolam 0.25 mg tablet RxNorm: 164683 TAKE ONE TABLET BY MOUTH DAILY NEEDED 10/30/2014 11/28/2014 Inactive (Response to an electronic controlled substance refill request - RxReferenceNumber: [id number]) alprazolam 0.25 mg tablet RxNorm: 280350 Tablet(s) TAKE ONE TABLET BY MOUTH DAILY 10/30/2014 10/29/2014 Inactive (Response to an electronic controlled substance refill request - RxReferenceNumber: [id number]) Lipitor 10 mg tablet RxNorm: 403035 TAKE ONE TABLET BY MOUTH EVERY DAY 10/30/2014 02/26/2015 Inactive alprazolam 0.25 mg tablet RxNorm: 114959 TAKE ONE TABLET BY MOUTH DAILY 10/07/2014 10/29/2014 Inactive (Response to an electronic controlled substance refill request - RxReferenceNumber: [id number]) alprazolam 0.25 mg tablet RxNorm: 575168 TAKE ONE TABLET BY MOUTH DAILY 10/06/2014 10/07/2014 Inactive (Response to an electronic controlled substance refill request - RxReferenceNumber: [id number]) alprazolam 0.25 mg tablet RxNorm: 518362 Tablet(s) TAKE ONE TABLET BY MOUTH EVERY DAY NEEDED 09/30/2014 10/06/2014 Inactive (Response to an electronic controlled substance refill request - RxReferenceNumber: [id number]) Fioricet 50 mg-325 mg-40 mg tablet RxNorm: 183495 Tablet(s) TAKE ONE TABLET BY MOUTH EVERY 4 HOURS NEEDED FOR headache 09/29/2014 10/12/2014 Inactive (Response to an electronic controlled substance refill request - RxReferenceNumber: [id number]) Bystolic 10 mg tablet RxNorm: 490470 1 Tablet(s) PO daily TAKE ONE TABLET BY MOUTH EVERY DAY 09/29/2014 04/26/2015 Inactive Bystolic 5 mg tablet RxNorm: 771958 TAKE 1 AND 1/2 TABLETS ONCE DAILY 09/24/2014 09/23/2014 Inactive Bystolic 5 mg tablet RxNorm: 823900 Tablet(s) TAKE 1 AND 1/2 TABLETS ONCE DAILY 09/24/2014 09/18/2015 Inactive gentamicin 0.3 % eye drops RxNorm: 048509 3 Drop(s) OPH QID 09/23/2014 09/29/2014 Inactive trazodone 50 mg tablet RxNorm: 553207 TAKE 1 AND 1/2 TABLET AT BEDTIME FOR 2 WEEKS, MAY INCREASE TO 2 TABLETS IF NECESSARY AFTER THAT 09/22/2014 01/26/2015 Inactive Fioricet 50 mg-325 mg-40 mg tablet RxNorm: 222068 TAKE ONE TABLET BY MOUTH EVERY 4 HOURS NEEDED FOR PAIN 09/17/2014 09/28/2014 Inactive (Response to an electronic controlled substance refill request - RxReferenceNumber: [id number]) Duragesic 50 mcg/hr transdermal patch RxNorm: 182878 1 TD q72 hours 08/07/2014 01/06/2015 Inactive [SAVINGS FOR UNINSURED PATIENTS -- BIN:[id number], PCN: ASPROD1, [id number], Process claim through Ensyn, for questions: . THIS IS NOT INSURANCE.] alprazolam 0.25 mg tablet RxNorm: 911558 TAKE ONE TABLET BY MOUTH EVERY DAY NEEDED 07/31/2014 08/29/2014 Inactive (Response to an electronic controlled substance refill request - RxReferenceNumber: [id number]) alprazolam 0.25 mg tablet RxNorm: 675697 1 Tablet(s) PO daily as needed TAKE ONE TABLET BY MOUTH EVERY DAY NEEDED 07/30/2014 08/01/2014 Inactive (Response to an electronic controlled substance refill request - RxReferenceNumber: [id number]) Diflucan 150 mg tablet RxNorm: 374170 1 Tablet(s) PO daily 06/25/2014 07/01/2014 Inactive [SAVINGS FOR UNINSURED PATIENTS -- BIN:[id number], PCN: ASPROD1, Group: [id number], ID# [id number], Process claim through MedImpact, for questions: . THIS IS NOT INSURANCE.] Kenalog 40 mg/mL suspension for injection RxNorm: 7258940 Milliliter(s) Inj 06/23/2014 06/23/2014 Inactive [SAVINGS FOR UNINSURED PATIENTS -- BIN:403040, PCN: ASPROD1, Group: [id number], ID# [id number], Process claim through MedImpact, for questions: . THIS IS NOT INSURANCE.] ceftriaxone 500 mg solution for injection RxNorm: 468883 Inj 06/23/2014 06/23/2014 Inactive [SAVINGS FOR UNINSURED PATIENTS -- BIN:824119, PCN: ASPROD1, Group: [id number], ID# [id number], Process claim through MedImpact, for questions: . THIS IS NOT INSURANCE.] Levaquin 500 mg tablet RxNorm: 422917 1 Tablet(s) PO daily 06/23/2014 07/13/2014 Inactive [SAVINGS FOR UNINSURED PATIENTS -- BIN:115163, PCN: ASPROD1, Group: [id number], ID# [id number], Process claim through MedImpact, for questions: . THIS IS NOT INSURANCE.] Duragesic 50 mcg/hr transdermal patch RxNorm: 045176 1 TD q72 hours 06/05/2014 08/06/2014 Inactive [SAVINGS FOR UNINSURED PATIENTS -- BIN:[id number], PCN: ASPROD1, Group: [id number], ID# [id number], Process claim through MedImpact, for questions: . THIS IS NOT INSURANCE.] alprazolam 0.25 mg tablet RxNorm: 860387 1 Tablet(s) PO daily as needed TAKE ONE TABLET BY MOUTH EVERY DAY NEEDED 06/02/2014 07/29/2014 Inactive (Response to an electronic controlled substance refill request - RxReferenceNumber: [id number]) nystatin 100,000 unit/gram topical powder RxNorm: 598188 APPLY TO AFFECTED AREA(S) TWO TIMES A DAY 05/01/2014 06/14/2014 Inactive hydrochlorothiazide 25 mg tablet RxNorm: 774295 TAKE ONE TABLET BY MOUTH EVERY DAY MUST CALL MD FOR APPOINTMENT 04/24/2014 10/20/2014 Inactive alprazolam 0.25 mg tablet RxNorm: 571079 Tablet(s) TAKE ONE TABLET BY MOUTH EVERY DAY NEEDED 04/16/2014 06/02/2014 Inactive (Response to an electronic controlled substance refill request - RxReferenceNumber: [id number]) alprazolam 0.25 mg tablet RxNorm: 299941 TAKE ONE TABLET BY MOUTH EVERY DAY NEEDED 04/16/2014 05/15/2014 Inactive (Response to an electronic controlled substance refill request - RxReferenceNumber: [id number]) alprazolam 0.25 mg tablet RxNorm: 833075 TAKE ONE TABLET BY MOUTH EVERY DAY NEEDED 04/16/2014 05/15/2014 Inactive (Response to an electronic controlled substance refill request - RxReferenceNumber: [id number]) alprazolam 0.25 mg tablet RxNorm: 889990 TAKE ONE TABLET BY MOUTH EVERY DAY NEEDED 04/14/2014 04/16/2014 Inactive (Response to an electronic controlled substance refill request - RxReferenceNumber: [id number]) Lipitor 10 mg tablet RxNorm: 763572 TAKE ONE TABLET BY MOUTH EVERY DAY 04/14/2014 09/10/2014 Inactive alprazolam 0.25 mg tablet RxNorm: 373483 TAKE ONE TABLET BY MOUTH EVERY DAY NEEDED 04/14/2014 04/14/2014 Inactive (Response to an electronic controlled substance refill request - RxReferenceNumber: [id number]) alprazolam 0.25 mg tablet RxNorm: 301903 TAKE ONE TABLET BY MOUTH EVERY DAY NEEDED 04/14/2014 04/15/2014 Inactive (Response to an electronic controlled substance refill request - RxReferenceNumber: [id number]) alprazolam 0.25 mg tablet RxNorm: 431141 TAKE ONE TABLET BY MOUTH EVERY DAY NEEDED 04/14/2014 04/14/2014 Inactive (Response to an electronic controlled substance refill request - [facility] [id number]) nystatin 100,000 unit/gram topical powder RxNorm: 170841 1 Application TOP BID 04/03/2014 07/01/2014 Inactive [SAVINGS FOR UNINSURED PATIENTS -- BIN:[id number], PCN: ASPROD1, Group: [id number], ID# [id number], Process claim through MedImpact, for questions: . THIS IS NOT INSURANCE.] Keflex 500 mg capsule RxNorm: 637934 1 Capsule(s) PO QID 04/03/2014 04/09/2014 Inactive [SAVINGS FOR UNINSURED PATIENTS -- BIN:706158, PCN: ASPROD1, Group: [id number], ID# [id number], Process claim through MedImpact, for questions: . THIS IS NOT INSURANCE.] Synthroid 100 mcg tablet RxNorm: 965971 1 Tablet(s) PO daily TAKE ONE TABLET BY MOUTH EVERY DAY 04/01/2014 01/05/2015 Inactive [SAVINGS FOR UNINSURED PATIENTS -- BIN:944447, PCN: ASPROD1, Group: [id number], ID# [id number], Process claim through MedImpact, for questions: . THIS IS NOT INSURANCE.] Duragesic 50 mcg/hr transdermal patch RxNorm: 981075 1 TD q72 hours 03/24/2014 06/04/2014 Inactive [SAVINGS FOR UNINSURED PATIENTS -- BIN:442468, PCN: ASPROD1, Group: [id number], ID# [id number], Process claim through MedImpact, for questions: . THIS IS NOT INSURANCE.] trazodone 50 mg tablet RxNorm: 910056 TAKE 1 AND 1/2 TABLET AT BEDTIME FOR 2 WEEKS, MAY INCREASE TO 2 TABLETS IF NECESSARY AFTER THAT 03/18/2014 09/13/2014 Inactive nystatin 100,000 unit/gram topical powder RxNorm: 325592 1 Application TOP BID 03/07/2014 03/16/2014 Inactive [SAVINGS FOR UNINSURED PATIENTS -- BIN:096836, PCN: ASPROD1, Group: [id number], ID# [id number], Process claim through MedImpact, for questions: . THIS IS NOT INSURANCE.] permethrin 5 % topical cream RxNorm: 059039 1 Application TOP daily 03/07/2014 11/23/2015 Inactive apply head to toe-leave on overnight and wash off in the a.m. May repeat x 1 if needed Diflucan 150 mg tablet RxNorm: 579756 1 Tablet(s) PO daily 03/07/2014 03/09/2014 Inactive [SAVINGS FOR UNINSURED PATIENTS -- BIN:223382, PCN: ASPROD1, Group: [id number], ID# [id number], Process claim through MedImpact, for questions: . THIS IS NOT INSURANCE.] hydrochlorothiazide 25 mg tablet RxNorm: 580225 TAKE ONE TABLET BY MOUTH EVERY DAY MUST CALL MD FOR APPOINTMENT 03/06/2014 04/23/2014 Inactive Zithromax Z-Sergio 250 mg tablet RxNorm: 860124 Tablet(s) PO as directed 03/04/2014 11/23/2015 Inactive [SAVINGS FOR UNINSURED PATIENTS -- BIN:045882, PCN: ASPROD1, Group: AM[facility], ID# [id number], Process claim through MedIBTCJamact, for questions: . THIS IS NOT INSURANCE.] Flonase 50 mcg/actuation nasal spray,suspension RxNorm: 912126 1 [place] NASAL daily 03/04/2014 07/01/2014 Inactive [SAVINGS FOR UNINSURED PATIENTS -- BIN:704154, PCN: ASPROD1, Group: [id number], ID# [id number], Process claim through MedImpact, for questions: . THIS IS NOT INSURANCE.] alprazolam 0.25 mg tablet RxNorm: 436834 1 Tablet(s) PO PRN TAKE ONE TABLET BY MOUTH EVERY DAY NEEDED 02/25/2014 04/14/2014 Inactive (Appended: Controlled substance eRx refill - RxReferenceNumber: [id number]) alprazolam 0.25 mg tablet RxNorm: 427146 TAKE ONE TABLET BY MOUTH EVERY DAY NEEDED 02/21/2014 03/22/2014 Inactive (Response to an electronic controlled substance refill request - RxReferenceNumber: [id number]) alprazolam 0.25 mg tablet RxNorm: 045527 TAKE ONE TABLET BY MOUTH EVERY DAY NEEDED 02/21/2014 03/22/2014 Inactive (Response to an electronic controlled substance refill request - RxReferenceNumber: [id number]) alprazolam 0.25 mg tablet RxNorm: 785830 TAKE ONE TABLET BY MOUTH EVERY DAY NEEDED 02/18/2014 03/19/2014 Inactive (Response to an electronic controlled substance refill request - RxReferenceNumber: [id number]) Cymbalta 60 mg capsule,delayed release RxNorm: 548096 TAKE ONE CAPSULE BY MOUTH TWICE A DAY 02/18/2014 01/13/2015 Inactive Nexium 40 mg capsule,delayed release RxNorm: 288864 TAKE ONE CAPSULE BY MOUTH EVERY DAY 02/18/2014 01/13/2015 Inactive Bactrim DS 800 mg-160 mg tablet RxNorm: 205723 1 Tablet(s) PO BID 02/13/2014 02/19/2014 Inactive probiotic while one antibiotic Bactrim DS 800 mg-160 mg tablet RxNorm: 162190 1 Tablet(s) PO BID 02/13/2014 02/12/2014 Inactive hydrocodone 10 mg-acetaminophen 325 mg tablet RxNorm: 073793 Tablet(s) PO TAKE ONE TO TWO TABLETS BY MOUTH EVERY 6 HOURS NEEDED FOR PAIN 02/06/2014 03/18/2015 Inactive (Appended: Controlled substance eRx refill - RxReferenceNumber: [id number]) Abilify 2 mg tablet RxNorm: 342648 Tablet(s) PO TAKE ONE TABLET BY MOUTH EVERY NIGHT AT BEDTIME 02/03/2014 03/19/2015 Inactive Duragesic 50 mcg/hr transdermal patch RxNorm: 344270 1 TD q72 hours 01/14/2014 03/23/2014 Inactive alprazolam 0.25 mg tablet RxNorm: 074817 1 Tablet(s) PO QDAY PRN 01/14/2014 02/12/2014 Inactive alprazolam 0.25 mg tablet RxNorm: 801228 Tablet(s) PO TAKE ONE TABLET BY MOUTH EVERY DAY NEEDED 01/14/2014 02/24/2014 Inactive (Appended: Controlled substance eRx refill - RxReferenceNumber: [id number]) Lipitor 10 mg tablet RxNorm: 943108 Tablet(s) PO TAKE ONE TABLET BY MOUTH EVERY DAY 01/14/2014 04/13/2014 Inactive Synthroid 100 mcg tablet RxNorm: 231287 Tablet(s) PO TAKE ONE TABLET BY MOUTH EVERY DAY 2013 03/31/2014 Inactive Fioricet 50 mg-325 mg-40 mg tablet RxNorm: 806813 Tablet(s) PO TAKE ONE TABLET BY MOUTH EVERY 4 HOURS NEEDED FOR PAIN 11/27/2013 09/17/2014 Inactive Fioricet 50 mg-325 mg-40 mg tablet RxNorm: 552965 Tablet(s) PO TAKE ONE TABLET BY MOUTH EVERY 4 HOURS NEEDED FOR PAIN 11/25/2013 11/26/2013 Inactive Zithromax Z-Sergio 250 mg tablet RxNorm: 098125 Tablet(s) PO as directed 11/11/2013 01/13/2014 Inactive Bystolic 10 mg tablet RxNorm: 981679 Tablet(s) PO TAKE ONE TABLET BY MOUTH EVERY DAY 10/21/2013 09/28/2014 Inactive Abilify 2 mg tablet RxNorm: 498577 1 Tablet(s) PO QHS 09/25/2013 01/22/2014 Inactive Synthroid 100 mcg tablet RxNorm: 293847 Tablet(s) PO TAKE ONE TABLET BY MOUTH EVERY DAY 09/24/2013 12/25/2013 Inactive Abilify 2 mg tablet RxNorm: 683947 1 Tablet(s) PO QHS 09/24/2013 09/24/2013 Inactive Rocephin 500 mg solution for injection RxNorm: 612245 1ml Milliliter(s) Inj 09/24/2013 09/24/2013 Inactive Rocephin 500 mg solution for injection RxNorm: 601112 1 Milliliter(s) Inj 09/19/2013 09/19/2013 Inactive Bystolic 5 mg tablet RxNorm: 996960 1 1/2 Tablet(s) PO daily 09/17/2013 03/15/2014 Inactive 1 1/2 daily may have 90 day if cheaper Bystolic 5 mg tablet RxNorm: 661088 1 1/2 Tablet(s) PO daily 09/17/2013 09/16/2013 Inactive 1 1/2 daily Lipitor 10 mg tablet RxNorm: 695900 Tablet(s) PO TAKE ONE TABLET BY MOUTH EVERY DAY 09/12/2013 01/13/2014 Inactive hydrocodone 10 mg-acetaminophen 325 mg tablet RxNorm: 914931 Tablet(s) PO TAKE ONE TO TWO TABLETS BY MOUTH EVERY 6 HOURS NEEDED FOR PAIN 09/09/2013 10/29/2017 Inactive (Appended: Controlled substance eRx refill - RxReferenceNumber: [id number]) hydrocodone 10 mg-acetaminophen 325 mg tablet RxNorm: 015640 1 Tablet(s) PO Q6 PRN 09/09/2013 02/06/2014 Inactive hydrocodone 10 mg-acetaminophen 325 mg tablet RxNorm: 153316 Tablet(s) PO TAKE ONE TO TWO TABLETS BY MOUTH EVERY 6 HOURS NEEDED FOR PAIN 09/06/2013 10/29/2017 Inactive (Appended: Controlled substance eRx refill - RxReferenceNumber: [id number]) Norvasc 10 mg tablet RxNorm: 425414 Tablet(s) PO TAKE ONE TABLET BY MOUTH EVERY DAY 09/05/2013 10/25/2015 Inactive trazodone 50 mg tablet RxNorm: 775509 1 1/2 Tablet(s) PO QHS 09/03/2013 03/17/2014 Inactive 75q hs x 2 week may increase to 100mg if nec after that nystatin 100,000 unit/mL oral suspension RxNorm: 244023 6 Milliliter(s) PO QID 08/06/2013 08/15/2013 Inactive Flonase 50 mcg/actuation nasal spray,suspension RxNorm: 558903 2 [place] NASAL daily 08/06/2013 03/03/2014 Inactive nystatin 100,000 unit/mL oral suspension RxNorm: 713076 6 Unit(s) PO QID 08/05/2013 08/05/2013 Inactive Phenergan with Codeine Syrup RxNorm: 5 Milliliter(s) PO Q4 PRN 08/05/2013 12/02/2013 Inactive 8 ounces alprazolam 0.25 mg tablet RxNorm: 827132 1 Tablet(s) PO QDAY PRN 07/29/2013 01/14/2014 Inactive Diflucan 150 mg tablet RxNorm: 621638 1 Tablet(s) PO daily 07/24/2013 07/26/2013 Inactive hydrochlorothiazide 25 mg tablet RxNorm: 797530 Tablet(s) PO TAKE ONE TABLET BY MOUTH EVERY DAY MUST CALL MD FOR APPOINTMENT 07/19/2013 03/05/2014 Inactive Phenergan with Codeine Syrup RxNorm: 10 Milliliter(s) PO Q4 PRN 07/10/2013 08/04/2013 Inactive 8 ounces Rocephin 500 mg solution for injection RxNorm: 737789 1 Inj 07/10/2013 07/10/2013 Inactive cefdinir 300 mg capsule RxNorm: 470545 1 Capsule(s) PO BID 07/10/2013 07/16/2013 Inactive prednisone 10 mg tablet RxNorm: 832722 3 Tablet(s) PO daily 07/10/2013 07/14/2013 Inactive Carafate 100 mg/mL oral suspension RxNorm: 280238 10 Milliliter(s) PO Q6 PRN pt to take carafate 10mL every 6 hours as needed. 07/10/2013 08/05/2014 Inactive Kenalog 40 mg/mL suspension for injection RxNorm: 7386047 1 Milliliter(s) Inj 07/10/2013 07/10/2013 Inactive trazodone 50 mg tablet RxNorm: 270056 1 Tablet(s) PO QHS 07/10/2013 09/02/2013 Inactive sulfamethoxazole 800 mg-trimethoprim 160 mg tablet RxNorm: 296575 1 Tablet(s) PO BID 06/03/2013 06/12/2013 Inactive Synthroid 125 mcg tablet RxNorm: 486822 1 Tablet(s) PO daily 05/07/2013 09/23/2013 Inactive Bystolic 10 mg tablet RxNorm: 731967 1.5 Tablet(s) PO daily 05/07/2013 09/03/2013 Inactive Voltaren 1 % Topical Gel RxNorm: 596262 4 Gram(s) TOP QID apply 4 grams to knees, 2 grams to hands and ankles four times daily. 05/07/2013 09/03/2013 Inactive hydrocodone 10 mg-acetaminophen 325 mg tablet RxNorm: 433655 1 Tablet(s) PO Q6 PRN 04/23/2013 09/09/2013 Inactive Norvasc 10 mg tablet RxNorm: 541580 Tablet(s) PO TAKE ONE TABLET BY MOUTH EVERY DAY 04/23/2013 09/04/2013 Inactive alprazolam 0.25 mg tablet RxNorm: 138740 1 Tablet(s) PO QDAY PRN 03/25/2013 07/22/2013 Inactive Bystolic 10 mg tablet RxNorm: 006396 1 Tablet(s) PO daily TAKE ONE TABLET BY MOUTH EVERY DAY 03/25/2013 05/06/2013 Inactive zolpidem 10 mg tablet RxNorm: 785889 1 Tablet(s) PO HS PRN 03/25/2013 07/09/2013 Inactive gentamicin 0.3 % Eye Drops RxNorm: 7010065 3 Drop(s) OPH QID three gtts to each eye QID x 7 days 03/11/2013 03/10/2013 Inactive gentamicin 0.3 % eye drops RxNorm: 811487 3 Drop(s) OPH QID three gtts to each eye QID x 7 days 03/11/2013 03/17/2013 Inactive Nexium 40 mg capsule,delayed release RxNorm: 233909 Capsule(s) PO TAKE ONE CAPSULE BY MOUTH EVERY DAY 02/15/2013 02/17/2014 Inactive Cymbalta 60 mg capsule,delayed release RxNorm: 998602 Capsule(s) PO TAKE ONE CAPSULE BY MOUTH TWICE A DAY 02/15/2013 02/17/2014 Inactive hydrocodone 10 mg-acetaminophen 325 mg tablet RxNorm: 2079989 1 Tablet(s) PO Q6 PRN 01/22/2013 04/22/2013 Inactive Lipitor 10 mg tablet RxNorm: 368281 Tablet(s) PO TAKE ONE TABLET BY MOUTH EVERY DAY 01/07/2013 09/11/2013 Inactive Cymbalta 60 mg capsule,delayed release RxNorm: 019813 Capsule(s) PO TAKE ONE CAPSULE BY MOUTH TWICE A DAY 01/02/2013 02/14/2013 Inactive Synthroid 100 mcg tablet RxNorm: 453633 1 Tablet(s) PO 12/03/2012 05/06/2013 Inactive Enablex 7.5 mg tablet,extended release RxNorm: 198970 1 Tablet(s) PO daily 11/28/2012 11/27/2012 Inactive Enablex 7.5 mg tablet,extended release RxNorm: 583025 1 Tablet(s) PO daily 11/28/2012 11/28/2012 Inactive scopolamine 1.5 mg 72 hr Transderm Patch RxNorm: 357153 1 Milligram(s) TD q72 hours 11/26/2012 05/06/2013 Inactive hydrochlorothiazide 25 mg tablet RxNorm: 797054 Tablet(s) PO TAKE ONE TABLET BY MOUTH EVERY DAY MUST CALL MD FOR APPOINTMENT 11/24/2012 07/18/2013 Inactive Cymbalta 60 mg capsule,delayed release RxNorm: 052184 Capsule(s) PO TAKE ONE CAPSULE BY MOUTH TWICE A DAY 10/26/2012 01/01/2013 Inactive Bystolic 10 mg tablet RxNorm: 808726 Tablet(s) PO TAKE ONE TABLET BY MOUTH EVERY DAY 10/12/2012 03/25/2013 Inactive zolpidem 10 mg tablet RxNorm: 307265 1 Tablet(s) PO HS PRN 10/02/2012 01/29/2013 Inactive alprazolam 0.25 mg tablet RxNorm: 458899 1 Tablet(s) PO QDAY PRN 10/02/2012 01/29/2013 Inactive Kenalog 40 mg/mL Susp for Injection RxNorm: 6077838 1 Milliliter(s) Inj 09/24/2012 09/24/2012 Inactive Diflucan 150 mg tablet RxNorm: 953240 1 Tablet(s) PO daily 09/24/2012 09/30/2012 Inactive acyclovir 400 mg tablet RxNorm: 729358 1 Tablet(s) PO QID 09/24/2012 10/08/2012 Inactive Cipro 500 mg tablet RxNorm: 851015 1 Tablet(s) PO BID 09/24/2012 09/30/2012 Inactive Tamiflu 75 mg capsule RxNorm: 656704 1 Capsule(s) PO BID 09/17/2012 09/16/2012 Inactive Tamiflu 75 mg capsule RxNorm: 354978 1 Capsule(s) PO BID 09/17/2012 09/16/2012 Inactive Tamiflu 75 mg capsule RxNorm: 742935 1 Capsule(s) PO BID please disregard order for #14 09/17/2012 09/21/2012 Inactive fluconazole 150 mg tablet RxNorm: 763937 1 Tablet(s) PO daily 09/10/2012 09/13/2012 Inactive ketoconazole 2 % Topical Cream RxNorm: 138305 Application TOP BID apply to affected area BID until gone 08/31/2012 11/01/2017 Inactive Norvasc 10 mg tablet RxNorm: 950305 Tablet(s) PO TAKE ONE TABLET BY MOUTH EVERY DAY 08/29/2012 04/22/2013 Inactive Cipro 500 mg tablet RxNorm: 791859 1 Tablet(s) PO BID 08/17/2012 08/26/2012 Inactive Flagyl 500 mg tablet RxNorm: 523779 1 Tablet(s) PO TID 08/17/2012 08/23/2012 Inactive Cipro 500 mg tablet RxNorm: 796056 1 Tablet(s) PO BID 08/17/2012 08/16/2012 Inactive zolpidem 10 mg tablet RxNorm: 852018 1 Tablet(s) PO HS PRN 08/17/2012 09/15/2012 Inactive Flagyl 500 mg tablet RxNorm: 506916 1 Tablet(s) PO TID 08/17/2012 08/16/2012 Inactive alprazolam 0.25 mg tablet RxNorm: 053036 1 Tablet(s) PO QDAY PRN 08/17/2012 09/15/2012 Inactive Belle Allergy 180 mg tablet RxNorm: 030525 1 Tablet(s) PO daily 08/08/2012 02/03/2013 Inactive hydrochlorothiazide 25 mg tablet RxNorm: 200883 1/2 Tablet(s) PO daily 08/08/2012 11/05/2012 Inactive needs appt Carafate 1 gram tablet RxNorm: 459622 1 Tablet(s) PO QID mix with 10 cc water and dissolve into slurry 08/08/2012 08/21/2012 Inactive hydrocodone 10 mg-acetaminophen 325 mg tablet RxNorm: 3836214 1 Tablet(s) PO Q6 PRN 08/08/2012 01/21/2013 Inactive Synthroid 100 mcg tablet RxNorm: 578640 1 Tablet(s) PO 08/08/2012 12/02/2012 Inactive Cymbalta 60 mg capsule,delayed release RxNorm: 315605 Capsule(s) PO 07/23/2012 10/25/2012 Inactive TAKE ONE CAPSULE BY MOUTH TWICE A DAY Nexium 40 mg capsule,delayed release RxNorm: 477603 Capsule(s) PO 06/20/2012 02/14/2013 Inactive TAKE ONE CAPSULE BY MOUTH EVERY DAY Lipitor 10 mg tablet RxNorm: 476943 Tablet(s) PO 06/20/2012 01/06/2013 Inactive TAKE ONE TABLET BY MOUTH EVERY DAY hydrochlorothiazide 25 mg tablet RxNorm: 034238 1 Tablet(s) PO daily 06/19/2012 08/07/2012 Inactive needs appt alprazolam 0.25 mg tablet RxNorm: 923862 1 Tablet(s) PO QDAY PRN 06/05/2012 07/04/2012 Inactive zolpidem 10 mg tablet RxNorm: 380317 1 Tablet(s) PO HS PRN 06/05/2012 07/04/2012 Inactive zolpidem 10 mg tablet RxNorm: 299327 1 Tablet(s) PO HS PRN 04/16/2012 05/15/2012 Inactive alprazolam 0.25 mg tablet RxNorm: 867359 1 Tablet(s) PO QDAY PRN 04/16/2012 05/15/2012 Inactive Cymbalta 60 mg capsule,delayed release RxNorm: 889686 1 Capsule(s) PO BID 03/22/2012 07/19/2012 Inactive Fioricet 50 mg-325 mg-40 mg tablet RxNorm: 311554 1 Tablet(s) PO Q4 PRN 03/22/2012 11/24/2013 Inactive Bystolic 10 mg tablet RxNorm: 584838 Tablet(s) PO 03/22/2012 10/11/2012 Inactive TAKE ONE TABLET BY MOUTH EVERY DAY potassium chloride ER 10 mEq Tab RxNorm: 607253 1 Tablet(s) PO daily 02/24/2012 03/01/2012 Inactive Lasix 20 mg Tab RxNorm: 490949 1 Tablet(s) PO daily 02/22/2012 02/21/2012 Inactive KCL 10 meq RxNorm: 1 PO daily 02/22/2012 02/21/2012 Inactive potassium chloride ER 10 mEq Tab RxNorm: 025720 1 Tablet(s) PO daily 02/22/2012 02/21/2012 Inactive Lasix 20 mg Tab RxNorm: 219593 1 Tablet(s) PO daily 02/22/2012 02/28/2012 Inactive KCL 10 meq RxNorm: 1 PO daily 02/22/2012 02/22/2012 Inactive potassium chloride ER 10 mEq Tab RxNorm: 094350 1 Tablet(s) PO daily 02/22/2012 02/23/2012 Inactive Rocephin 500 mg Solution for Injection RxNorm: 291351 Inj 02/15/2012 02/15/2012 Inactive Nexium 40 mg capsule,delayed release RxNorm: 517952 1 Capsule(s) PO daily 02/15/2012 No Stop Date Active Bystolic 10 mg Tab RxNorm: 187372 1 Tablet(s) PO daily 02/15/2012 08/12/2012 Inactive alprazolam 0.25 mg tablet RxNorm: 693408 1 Tablet(s) PO QDAY PRN 01/31/2012 02/29/2012 Inactive zolpidem 10 mg tablet RxNorm: 420246 1 Tablet(s) PO HS PRN 01/31/2012 02/29/2012 Inactive alprazolam 0.25 mg Tab RxNorm: 836663 1 Tablet(s) PO QDAY PRN 12/16/2011 01/14/2012 Inactive zolpidem 10 mg Tab RxNorm: 224881 1 Tablet(s) PO HS PRN 12/16/2011 01/14/2012 Inactive Norvasc 10 mg tablet RxNorm: 715765 1 Tablet(s) PO daily 12/02/2011 02/21/2012 Inactive Lipitor 10 mg tablet RxNorm: 752482 1 Tablet(s) PO daily 11/16/2011 05/13/2012 Inactive zolpidem 10 mg Tab RxNorm: 388467 1 Tablet(s) PO HS PRN 10/26/2011 12/15/2011 Inactive alprazolam 0.25 mg Tab RxNorm: 847089 1 Tablet(s) PO QDAY PRN 10/26/2011 12/15/2011 Inactive hydrochlorothiazide 25 mg tablet RxNorm: 401140 1 Tablet(s) PO daily 09/05/2011 03/02/2012 Inactive Synthroid 75 mcg tablet RxNorm: 245528 1 Tablet(s) PO daily 08/01/2011 02/26/2012 Inactive Abilify 2 mg Tab RxNorm: 680685 1 Tablet(s) PO QHS 08/01/2011 09/10/2012 Inactive dicyclomine 10 mg Cap RxNorm: 802972 1 Capsule(s) PO TID 08/01/2011 10/29/2011 Inactive alprazolam 0.25 mg Tab RxNorm: 589849 1 Tablet(s) PO QDAY PRN 07/26/2011 10/25/2011 Inactive Fioricet 50 mg-325 mg-40 mg tablet RxNorm: 188936 1 Tablet(s) PO Q4 PRN 07/14/2011 03/21/2012 Inactive Rocephin 500 mg Solution for Injection RxNorm: 195688 1 Milliliter(s) Inj 07/14/2011 08/01/2011 Inactive Nexium 40 mg Capsule, delayed release RxNorm: 915544 1 Capsule(s) PO daily 05/23/2011 10/06/2011 Inactive Bystolic 10 mg tablet RxNorm: 550676 1 Tablet(s) PO daily 05/23/2011 11/18/2011 Inactive Bystolic 10 mg Tab RxNorm: 665089 1 Tablet(s) PO daily 05/23/2011 05/22/2011 Inactive alprazolam 0.25 mg Tab RxNorm: 896555 1 Tablet(s) PO QDAY PRN 05/23/2011 07/25/2011 Inactive Influenza Virus Vaccine 0.5 mL RxNorm: IM 05/23/2011 05/23/2011 Inactive zolpidem 10 mg Tab RxNorm: 018534 1 Tablet(s) PO HS PRN 05/23/2011 10/25/2011 Inactive Rocephin 500 mg Solution for Injection RxNorm: 016403 1 Milliliter(s) Inj 05/03/2011 07/14/2011 Inactive Kenalog 40 mg/mL Susp for Injection RxNorm: 2592859 1 Milliliter(s) Inj 05/03/2011 07/14/2011 Inactive Bactrim DS 800 mg-160 mg Tab RxNorm: 932361 1 Tablet(s) PO BID 05/03/2011 08/01/2011 Inactive Bystolic 10 mg tablet RxNorm: 904317 1 Tablet(s) PO daily No Start Date Active Flonase 50 mcg/actuation nasal spray,suspension RxNorm: 0473706 2 [place] NASAL daily No Start Date 08/05/2013 Inactive Levaquin 500 mg tablet RxNorm: 212503 Tablet(s) PO No Start Date 04/19/2017 Inactive Duragesic 50 mcg/hr transdermal patch RxNorm: 712122 1 TD q72 hours No Start Date 01/13/2014 Inactive Vesicare 5 mg tablet RxNorm: 462978 1 Tablet(s) PO daily No Start Date 01/06/2015 Inactive Celebrex 200 mg capsule RxNorm: 856551 1 Capsule(s) PO daily No Start Date 04/02/2014 Inactive zolpidem 10 mg Tab RxNorm: 771114 1 Tablet(s) PO HS PRN No Start Date 05/22/2011 Inactive Zyrtec 10 mg Tab RxNorm: 9561581 1 Tablet(s) PO daily No Start Date 08/08/2012 Inactive Flonase 50 mcg/actuation nasal spray,suspension RxNorm: 3110595 1 [place] NASAL daily No Start Date 11/07/2017 Inactive 1 spray to each nostril daily Nexium 40 mg Cap RxNorm: 318592 1 Capsule(s) PO daily No Start Date 05/22/2011 Inactive ketoconazole 2 % Topical Cream RxNorm: 652101 Application TOP BID apply to affected area BID until gone No Start Date 08/30/2012 Inactive aspirin 81 mg tablet RxNorm: 306440 1 Tablet(s) PO daily No Start Date 11/13/2017 Inactive Cymbalta 60 mg capsule,delayed release RxNorm: 236248 1 Capsule(s) PO BID No Start Date 03/21/2012 Inactive alprazolam 0.25 mg Tab RxNorm: 738068 1 Tablet(s) PO QDAY PRN No Start Date 05/22/2011 Inactive baclofen 10 mg tablet RxNorm: 088864 1 Tablet(s) PO TID as needed muscle spasms No Start Date 11/14/2017 Inactive Toprol XL 100 mg 24 hr Tab RxNorm: 655523 1 Tablet(s) PO BID No Start Date 04/25/2011 Inactive Xanax 0.25 mg tablet RxNorm: 424920 1 Tablet(s) PO daily as needed No Start Date 12/27/2015 Inactive Bystolic 10 mg Tab RxNorm: 811926 1 Tablet(s) PO daily No Start Date 05/22/2011 Inactive Fioricet 50 mg-325 mg-40 mg Tab RxNorm: 087565 1 Tablet(s) PO Q4 PRN No Start Date 07/13/2011 Inactive albuterol sulfate HFA 90 mcg/Actuation Aerosol Inhaler RxNorm: 6121362 1 INH Q4 PRN No Start Date 01/06/2015 Inactive Imitrex 50 mg tablet RxNorm: 502016 1 Tablet(s) PO Q8 as needed may repeat x1 dose in 1 hour of inital dose. No Start Date 02/24/2016 Inactive dc fioricet Tessalon 200 mg Cap RxNorm: 061982 1 Capsule(s) PO Q4 PRN No Start Date 02/14/2012 Inactive Zithromax Z-Esrgio 250 mg tablet RxNorm: 355298 Tablet(s) PO No Start Date 11/10/2013 Inactive hydrochlorothiazide 25 mg Tab RxNorm: 049342 1 Tablet(s) PO daily No Start Date 09/04/2011 Inactive Fish Oil 1,000 mg Cap RxNorm: 1 Capsule(s) PO TID No Start Date 11/08/2017 Inactive Deplin 15 mg Tab RxNorm: 1 Tablet(s) PO daily No Start Date 08/01/2011 Inactive Brilinta 90 mg tablet RxNorm: 0693938 1 Tablet(s) PO BID No Start Date 11/23/2015 Inactive Synthroid 75 mcg Tab RxNorm: 003843 1 Tablet(s) PO daily No Start Date 07/31/2011 Inactive ciprofloxacin 0.3 % eye drops RxNorm: 350677 2 Drop(s) ophthalmic (eye) Q2H while awake x 2 days, then Q4H x 5 days No Start Date 11/22/2017 Inactive scopolamine 1.5 mg 72 hr Transderm Patch RxNorm: 363688 1 Milligram(s) TD q72 hours No Start Date 11/25/2012 Inactive hydrocodone-acetaminophen 10 mg-325 mg tablet RxNorm: 7207093 1 Tablet(s) PO Q6 PRN No Start Date 08/07/2012 Inactive Phenergan with Codeine Syrup RxNorm: 5-10 Milliliter(s) PO Q6 PRN No Start Date 02/14/2012 Inactive Norvasc 10 mg Tab RxNorm: 416670 1 Tablet(s) PO daily No Start Date 12/01/2011 Inactive Zithromax Z-Sergio 250 mg Tab RxNorm: 514639 Tablet(s) PO No Start Date 08/01/2011 Inactive Medication Administered Medication Codes Instructions Start Date Status ceftriaxone 500 mg solution for injection RxNorm: 5231300 05/28/2018 No longer Active Kenalog 40 mg/mL suspension for injection RxNorm: 7789490 Milliliter 05/28/2018 No longer Active ceftriaxone 500 mg solution for injection RxNorm: 2483664 500Milligram 01/19/2018 No longer Active Kenalog 40 mg/mL suspension for injection RxNorm: 6688858 1Milliliter 01/19/2018 No longer Active Kenalog 40 mg/mL suspension for injection RxNorm: 8668955 1Milliliter 06/27/2017 No longer Active Kenalog 40 mg/mL suspension for injection RxNorm: 6498001 Milliliter 04/20/2017 No longer Active Kenalog 40 mg/mL suspension for injection RxNorm: 1552245 1Milliliter 03/14/2017 No longer Active ceftriaxone 500 mg solution for injection RxNorm: 2728982 1Milliliter 11/28/2016 No longer Active Kenalog 40 mg/mL suspension for injection RxNorm: 9849496 Milliliter 11/07/2016 No longer Active ceftriaxone 500 mg solution for injection RxNorm: 1521505 11/07/2016 No longer Active ceftriaxone 500 mg solution for injection RxNorm: 9198282 12/07/2015 No longer Active Kenalog 40 mg/mL suspension for injection RxNorm: 9837131 1Milliliter 11/24/2015 No longer Active ceftriaxone 500 mg solution for injection RxNorm: 0458716 Milliliter 11/24/2015 No longer Active promethazine 25 mg/mL injection solution RxNorm: 376817 Milliliter 08/27/2015 No longer Active ketorolac 60 mg/2 mL intramuscular solution RxNorm: 739439 Milliliter 08/27/2015 No longer Active Kenalog 40 mg/mL suspension for injection RxNorm: 4760470 Milliliter 08/10/2015 No longer Active ceftriaxone 500 mg solution for injection RxNorm: 0615490 08/10/2015 No longer Active ceftriaxone 500 mg solution for injection RxNorm: 1641503 1Milliliter 07/28/2015 No longer Active Kenalog 40 mg/mL suspension for injection RxNorm: 9747954 Milliliter 03/19/2015 No longer Active Kenalog 40 mg/mL suspension for injection RxNorm: 1201209 Milliliter 06/23/2014 No longer Active ceftriaxone 500 mg solution for injection RxNorm: 216674 06/23/2014 No longer Active Rocephin 500 mg solution for injection RxNorm: 554057 1mlMilliliter 09/24/2013 No longer Active Rocephin 500 mg solution for injection RxNorm: 381577 1Milliliter 09/19/2013 No longer Active Rocephin 500 mg solution for injection RxNorm: 929197 1 07/10/2013 No longer Active Kenalog 40 mg/mL suspension for injection RxNorm: 5231734 1Milliliter 07/10/2013 No longer Active Kenalog 40 mg/mL Susp for Injection RxNorm: 7705085 1Milliliter 09/24/2012 No longer Active Rocephin 500 mg Solution for Injection RxNorm: 620389 02/15/2012 No longer Active Influenza Virus Vaccine [...] Observation Code Item Item Code Result Date Comp Metabolic Nca819 NA 141 mEq/L 09/12/2017 Comp Metabolic Zjo074 K 4.1 mEq/L 09/12/2017 Comp Metabolic Huy139 CL 105 mEq/L 09/12/2017 Comp Metabolic Dfu658 CO2 30.0 mEq/L 09/12/2017 Comp Metabolic Smy302 ANION GAP 10 09/12/2017 Comp Metabolic Dtl955 GLUCOSE 97 mg/dL 09/12/2017 Comp Metabolic Ptp682 Creat 0.7 mg/dL 09/12/2017 Comp Metabolic Iga295 eGFR 91 ml/min/1.73m2 09/12/2017 Comp Metabolic Dkp689 BUN 18 mg/dL 09/12/2017 Comp Metabolic Phl754 B/C Ratio 26.5 Ratio 09/12/2017 Comp Metabolic Owf462 CALCIUM 9.7 mg/dL 09/12/2017 Comp Metabolic Nbu455 ALK PHOS 60 U/L 09/12/2017 Comp Metabolic Lyx566 AST(SGOT) 22 U/L 09/12/2017 Comp Metabolic Cth918 ALT(SGPT) 23 U/L 09/12/2017 Comp Metabolic Jtd116 BILI T 0.4 mg/dL 09/12/2017 Comp Metabolic Coi297 ALBUMIN 3.8 g/dL 09/12/2017 Comp Metabolic Cfq052 TPRO 6.4 g/dL 09/12/2017 Comp Metabolic Leu201 GLOB 2.6 g/dL 09/12/2017 Comp Metabolic Gdz230 A/G Ratio 1.5 Ratio 09/12/2017 Comp Metabolic Xbn096 Osmo 283 mOsmo 09/12/2017 Cbc With Differential [...] 30.7 pg 09/12/2017 Cbc With Differential Ord2 Alexander% 7.2 % 09/12/2017 Cbc With Differential Ord2 [...] 2.46 K/ul 09/12/2017 Cbc With Differential Ord2 Alexander ABS# 0.6 K/ul 09/12/2017 Cbc With Differential [...] 31.4 pg 11/07/2016 Cbc With Differential Ord2 Alexander% 6.1 % 11/07/2016 Cbc With Differential Ord2 [...] 2.48 K/ul 11/07/2016 Cbc With Differential Ord2 Alexander ABS# 0.6 K/ul 11/07/2016 Cbc With Differential Ord2 Eos ABS# 0.3 K/ul 11/07/2016 Cbc With Differential Ord2 Baso ABS# 0.1 K/ul 11/07/2016 Comp Metabolic Uxz778 NA 139 mEq/L 11/07/2016 Comp Metabolic Ssc919 K 3.8 mEq/L 11/07/2016 Comp Metabolic Fxr345 CL 106 mEq/L 11/07/2016 Comp Metabolic Fmx853 CO2 25.0 mEq/L 11/07/2016 Comp Metabolic Dla549 ANION GAP 12 11/07/2016 Comp Metabolic Ukl151 GLUCOSE 98 mg/dL 11/07/2016 Comp Metabolic Tuf611 Creat 0.8 mg/dL 11/07/2016 Comp Metabolic Apz727 eGFR 71 ml/min/1.73m2 11/07/2016 Comp Metabolic Duk192 BUN 36 mg/dL 11/07/2016 Comp Metabolic Xvi606 B/C Ratio 42.9 Ratio 11/07/2016 Comp Metabolic Szs376 CALCIUM 9.9 mg/dL 11/07/2016 Comp Metabolic Qbb608 ALK PHOS 57 U/L 11/07/2016 Comp Metabolic Ywe421 AST(SGOT) 24 U/L 11/07/2016 Comp Metabolic Ome142 ALT(SGPT) 28 U/L 11/07/2016 Comp Metabolic Viw969 BILI T 0.4 mg/dL 11/07/2016 Comp Metabolic Qqp920 ALBUMIN 4.2 g/dL 11/07/2016 Comp Metabolic Irr725 TPRO 7.0 g/dL 11/07/2016 Comp Metabolic Juo504 GLOB 2.8 g/dL 11/07/2016 Comp Metabolic Kyd160 A/G Ratio 1.5 Ratio 11/07/2016 Comp Metabolic Dtw607 Osmo 286 mOsmo 11/07/2016 Free T4 Nik254 FREE T4 0.75 ng/dL 11/07/2016 Tsh Ord6 hTSH II 3.46 uIU/mL 11/07/2016 Comp Metabolic Uvb252 NA 138 mEq/L 05/10/2016 Comp Metabolic Lmq906 K 3.8 mEq/L 05/10/2016 Comp Metabolic Gyj865 CL 102 mEq/L 05/10/2016 Comp Metabolic Jbx081 CO2 29.0 mEq/L 05/10/2016 Comp Metabolic Pyi844 ANION GAP 11 05/10/2016 Comp Metabolic Ypo454 GLUCOSE 107 mg/dL 05/10/2016 Comp Metabolic Lpg573 Creat 0.7 mg/dL 05/10/2016 Comp Metabolic Umn028 eGFR 93 ml/min/1.73m2 05/10/2016 Comp Metabolic Qha833 BUN 18 mg/dL 05/10/2016 Comp Metabolic Xen869 B/C Ratio 26.9 Ratio 05/10/2016 Comp Metabolic Cgh975 CALCIUM 9.8 mg/dL 05/10/2016 Comp Metabolic Cgg049 ALK PHOS 60 U/L 05/10/2016 Comp Metabolic Rdc288 AST(SGOT) 21 U/L 05/10/2016 Comp Metabolic Lhj972 ALT(SGPT) 23 U/L 05/10/2016 Comp Metabolic Nfp099 BILI T 0.5 mg/dL 05/10/2016 Comp Metabolic Xdi050 ALBUMIN 4.1 g/dL 05/10/2016 Comp Metabolic Sqk529 TPRO 6.7 g/dL 05/10/2016 Comp Metabolic Xtc252 GLOB 2.7 g/dL 05/10/2016 Comp Metabolic Zvk826 A/G Ratio 1.5 Ratio 05/10/2016 Comp Metabolic Kxr784 Osmo 278 mOsmo 05/10/2016 Lipid Ord30 CHOL 169 mg/dL 05/10/2016 Lipid Ord30 HDL 50.0 mg/dl 05/10/2016 Lipid Ord30 TRIG 161 mg/dL 05/10/2016 Lipid Ord30 LDL 87 mg/dL 05/10/2016 Lipid Ord30 C/HDL 3.4 Ratio 05/10/2016 Comp Metabolic Seh836 NA 137 mEq/L 06/12/2015 Comp Metabolic Ojw612 K 3.8 mEq/L 06/12/2015 Comp Metabolic Qlu546 CL 104 mEq/L 06/12/2015 Comp Metabolic Xsb865 CO2 24.0 mEq/L 06/12/2015 Comp Metabolic Vhu548 ANION GAP 13 06/12/2015 Comp Metabolic Uax770 GLUCOSE 92 mg/dL 06/12/2015 Comp Metabolic Qra220 Creat 0.7 mg/dL 06/12/2015 Comp Metabolic Imw485 eGFR 87 ml/min/1.73m2 06/12/2015 Comp Metabolic Nme801 BUN 31 mg/dL 06/12/2015 Comp Metabolic Peb983 B/C Ratio 43.7 Ratio 06/12/2015 Comp Metabolic Kjm319 CALCIUM 10.0 mg/dL 06/12/2015 Comp Metabolic Oic360 ALK PHOS 58 U/L 06/12/2015 Comp Metabolic Nxc996 AST(SGOT) 32 U/L 06/12/2015 Comp Metabolic Wjh243 ALT(SGPT) 33 U/L 06/12/2015 Comp Metabolic Efg498 BILI T 0.5 mg/dL 06/12/2015 Comp Metabolic Suz562 ALBUMIN 4.1 g/dL 06/12/2015 Comp Metabolic Tdb369 TPRO 6.6 g/dL 06/12/2015 Comp Metabolic Ejh282 GLOB 2.5 g/dL 06/12/2015 Comp Metabolic Vcu143 A/G Ratio 1.6 Ratio 06/12/2015 Comp Metabolic Vsp528 Osmo 280 mOsmo 06/12/2015 Cbc With Differential [...] Differential Ord2 RDW 14.2 % 06/12/2015 CBC 5169849 WBC 8.7 10e9/L 04/30/2013 CBC 1428205 RBC 4.63 10e12/L 04/30/2013 CBC 0398552 HGB 14.1 g/dL 04/30/2013 CBC 3168610 HCT DET 42.2 % 04/30/2013 CBC 6599426 MCV 91.1 fL 04/30/2013 CBC 0642268 MCH 30.5 pg 04/30/2013 CBC 1698445 MCHC 33.4 g/dL 04/30/2013 CBC 9652361 PLT 248 10e9/L 04/30/2013 CBC 0443229 MPV 12.1 fL 04/30/2013 CBC 2376517 LARA % 59.0 % 04/30/2013 CBC 3127886 LY % 27.6 % 04/30/2013 CBC 2576148 MON % 8.0 % 04/30/2013 CBC 6644027 EOS % 4.8 % 04/30/2013 CBC 0622841 BASO % 0.6 % 04/30/2013 CBC 1861411 RDW 13.3 % 04/30/2013 CBC 7839484 ABS LARA 5.13 10e9/L 04/30/2013 CBC 3365906 ABS LYMPH 2.40 10e9/L 04/30/2013 CBC 8774033 ABS MONO 0.70 10e9/L 04/30/2013 CBC 2028561 ABS EOS 0.42 10e9/L 04/30/2013 CBC 4777178 ABS BASO 0.05 10e9/L 04/30/2013 CBC 2608969 RDW-SD 43.1 fL 04/30/2013 TSH 0546895 TSH 4.339 uIU/ML 04/30/2013 A1C HPLC 6123061 A1C HPLC 94724-9 5.6 % 04/30/2013 FREE T4 0580068 FREE T4 0.84 NG/DL 04/30/2013 GFR CALC 3600621 GFR AA >60 ML/MIN 04/30/2013 GFR CALC 7467497 GFR NON-AA >60 ML/MIN 04/30/2013 CHEM 14 5820069 AST 22 U/L 04/30/2013 CHEM 14 5271170 ALT 22 IU/L 04/30/2013 CHEM 14 3047680 BUN 24 MG/DL 04/30/2013 CHEM 14 7679152 ALBUMIN 4.2 GM/DL 04/30/2013 CHEM 14 8675905 CHLORIDE 107 MMOL/L 04/30/2013 CHEM 14 1028293 BILI TOT 0.3 MG/DL 04/30/2013 CHEM 14 4992881 ALK PHOS 88 U/L 04/30/2013 CHEM 14 5477539 SODIUM 141 MMOL/L 04/30/2013 CHEM 14 1490701 CREATININE 0.60 MG/DL 04/30/2013 CHEM 14 6089492 CALCIUM 9.9 MG/DL 04/30/2013 CHEM 14 9947356 POTASSIUM 3.7 MMOL/L 04/30/2013 CHEM 14 0088356 PROT TOT 6.6 GM/DL 04/30/2013 CHEM 14 2944422 GLUCOSE 123 MG/DL 04/30/2013 CHEM 14 5923550 BICARB 25 MMOL/L 04/30/2013 CHEM 14 3332358 ANION GAP 9 MEQ/L 04/30/2013 LIPID GRP HDL TEST 46 MG/DL 04/30/2013 LIPID GRP TRIG 148 MG/DL 04/30/2013 LIPID GRP TEST LDL 75 MG/DL 04/30/2013 LIPID GRP CHOL 151 MG/DL 04/30/2013 LIPID GRP RCHOL/HDL 3.28 RATIO 04/30/2013 TSH 7763311 TSH 3.341 uIU/ML 11/29/2012 CBC 5978523 WBC 8.4 10e9/L 11/29/2012 CBC 6914446 RBC 4.77 10e12/L 11/29/2012 CBC 1264334 HGB 14.9 g/dL 11/29/2012 CBC 1375245 HCT DET 44.2 % 11/29/2012 CBC 1207135 MCV 92.7 fL 11/29/2012 CBC 3289714 MCH 31.2 pg 11/29/2012 CBC 9954276 MCHC 33.7 g/dL 11/29/2012 CBC 5932156 PLT 253 10e9/L 11/29/2012 CBC 5487493 MPV 11.8 fL 11/29/2012 CBC 0332097 LARA % 54.9 % 11/29/2012 CBC 1119807 LY % 29.0 % 11/29/2012 CBC 2627888 MON % 10.4 % 11/29/2012 CBC 8224362 EOS % 5.1 % 11/29/2012 CBC 5184268 BASO % 0.6 % 11/29/2012 CBC 4901411 RDW 13.8 % 11/29/2012 CBC 9746338 ABS LARA 4.61 10e9/L 11/29/2012 CBC 7676731 ABS LYMPH 2.44 10e9/L 11/29/2012 CBC 3405002 ABS MONO 0.87 10e9/L 11/29/2012 CBC 6448683 ABS EOS 0.43 10e9/L 11/29/2012 CBC 3350792 ABS BASO 0.05 10e9/L 11/29/2012 CBC 1319335 RDW-SD 45.9 fL 11/29/2012 CHEM 14 3214660 AST 25 U/L 11/29/2012 CHEM 14 2132759 ALT 26 IU/L 11/29/2012 CHEM 14 8838886 BUN 25 MG/DL 11/29/2012 CHEM 14 4085818 ALBUMIN 4.4 GM/DL 11/29/2012 CHEM 14 5871418 CHLORIDE 106 MMOL/L 11/29/2012 CHEM 14 1658730 BILI TOT 0.4 MG/DL 11/29/2012 CHEM 14 3424710 ALK PHOS 86 U/L 11/29/2012 CHEM 14 5448341 SODIUM 141 MMOL/L 11/29/2012 CHEM 14 7422405 CREATININE 0.80 MG/DL 11/29/2012 CHEM 14 8931065 CALCIUM 9.7 MG/DL 11/29/2012 CHEM 14 6402741 POTASSIUM 4.0 MMOL/L 11/29/2012 CHEM 14 5165163 PROT TOT 6.6 GM/DL 11/29/2012 CHEM 14 2492765 GLUCOSE 112 MG/DL 11/29/2012 CHEM 14 4764047 BICARB 29 MMOL/L 11/29/2012 CHEM 14 9006710 ANION GAP 6 MEQ/L 11/29/2012 A1C HPLC 9956582 A1C HPLC 55976-7 5.5 % 11/29/2012 LIPID GRP HDL TEST 54 MG/DL 11/29/2012 LIPID GRP TRIG 77 MG/DL 11/29/2012 LIPID GRP TEST LDL 78 MG/DL 11/29/2012 LIPID GRP CHOL 147 MG/DL 11/29/2012 LIPID GRP RCHOL/HDL 2.72 RATIO 11/29/2012 FREE T4 5599649 FREE T4 1.23 NG/DL 11/29/2012 GFR CALC 8139866 GFR AA >60 ML/MIN 11/29/2012 GFR CALC 8638511 GFR NON-AA >60 ML/MIN 11/29/2012 CHEM 14 1987906 AST 23 U/L 08/07/2012 CHEM 14 4492680 ALT 34 IU/L 08/07/2012 CHEM 14 8386202 BUN 26 MG/DL 08/07/2012 CHEM 14 2518326 ALBUMIN 4.4 GM/DL 08/07/2012 CHEM 14 6922350 CHLORIDE 105 MMOL/L 08/07/2012 CHEM 14 9861445 BILI TOT 0.5 MG/DL 08/07/2012 CHEM 14 8847574 ALK PHOS 79 U/L 08/07/2012 CHEM 14 1660442 SODIUM 140 MMOL/L 08/07/2012 CHEM 14 1003159 CREATININE 0.71 MG/DL 08/07/2012 CHEM 14 0094317 CALCIUM 10.4 MG/DL 08/07/2012 CHEM 14 9871588 POTASSIUM 3.8 MMOL/L 08/07/2012 CHEM 14 7091770 PROT TOT 6.8 GM/DL 08/07/2012 CHEM 14 9508322 GLUCOSE 104 MG/DL 08/07/2012 CHEM 14 1481328 BICARB 27 MMOL/L 08/07/2012 CHEM 14 3602851 ANION GAP 8 MEQ/L 08/07/2012 A1C HPLC 2471149 A1C HPLC 23718-6 5.4 % 08/07/2012 FREE T4 0689187 FREE T4 1.11 NG/DL 08/07/2012 LIPID GRP HDL TEST 50 MG/DL 08/07/2012 LIPID GRP TRIG 127 MG/DL 08/07/2012 LIPID GRP TEST LDL 93 MG/DL 08/07/2012 LIPID GRP CHOL 168 MG/DL 08/07/2012 LIPID GRP RCHOL/HDL 3.36 RATIO 08/07/2012 CBC 0361196 WBC 8.7 10e9/L 08/07/2012 CBC 1388484 RBC 4.67 10e12/L 08/07/2012 CBC 4964958 HGB 14.4 g/dL 08/07/2012 CBC 1177136 HCT DET 42.8 % 08/07/2012 CBC 5225648 MCV 91.6 fL 08/07/2012 CBC 4352936 MCH 30.8 pg 08/07/2012 CBC 6299751 MCHC 33.6 g/dL 08/07/2012 CBC 1485798 PLT 271 10e9/L 08/07/2012 CBC 3951944 MPV 12.3 fL 08/07/2012 CBC 3387327 LARA % 50.6 % 08/07/2012 CBC 7135929 LY % 34.9 % 08/07/2012 CBC 1989715 MON % 9.1 % 08/07/2012 CBC 8171787 EOS % 5.1 % 08/07/2012 CBC 3097521 BASO % 0.3 % 08/07/2012 CBC 9923964 RDW 13.6 % 08/07/2012 CBC 0714222 ABS LARA 4.40 10e9/L 08/07/2012 CBC 8774643 ABS LYMPH 3.04 10e9/L 08/07/2012 CBC 8854044 ABS MONO 0.79 10e9/L 08/07/2012 CBC 7266931 ABS EOS 0.44 10e9/L 08/07/2012 CBC 3409666 ABS BASO 0.03 10e9/L 08/07/2012 CBC 7199809 RDW-SD 44.1 fL 08/07/2012 TSH 4822019 TSH 7.419 uIU/ML 08/07/2012 GFR CALC 3706928 GFR AA >60 ML/MIN 08/07/2012 GFR CALC 9396893 GFR NON-AA >60 ML/MIN 08/07/2012 A1C HPLC 2719797 A1C HPLC 75277-6 5.3 % 02/21/2012 TSH 3029945 TSH 0.832 uIU/ML 02/16/2012 FREE T4 0365772 FREE T4 1.04 NG/DL 02/16/2012 GFR CALC 7789653 GFR AA >60 ML/MIN 02/16/2012 GFR CALC 7440916 GFR NON-AA >60 ML/MIN 02/16/2012 BMP 3987435 GLUCOSE 112 MG/DL 02/16/2012 BMP 5456357 CREATININE 0.65 MG/DL 02/16/2012 BMP 5662662 BUN 17 MG/DL 02/16/2012 BMP 1836103 SODIUM 144 MMOL/L 02/16/2012 BMP 5175990 POTASSIUM 4.0 MMOL/L 02/16/2012 BMP 8553004 CHLORIDE 107 MMOL/L 02/16/2012 BMP 5553996 BICARB 29 MMOL/L 02/16/2012 BMP 5283715 ANION GAP 8 MEQ/L 02/16/2012 BMP 7215988 CALCIUM 9.5 MG/DL 02/16/2012 CBC 7020696 WBC 7.1 10e9/L 02/16/2012 CBC 5947848 RBC 4.47 10e12/L 02/16/2012 CBC 8973415 HGB 13.5 g/dL 02/16/2012 CBC 0978711 HCT DET 40.7 % 02/16/2012 CBC 7930704 MCV 91.1 fL 02/16/2012 CBC 9917824 MCH 30.2 pg 02/16/2012 CBC 5735832 MCHC 33.2 g/dL 02/16/2012 CBC 8616066 PLT 238 10e9/L 02/16/2012 CBC 9665595 MPV 11.4 fL 02/16/2012 CBC 1026599 LARA % 55.7 % 02/16/2012 CBC 8692127 LY % 29.6 % 02/16/2012 CBC 1392117 MON % 9.2 % 02/16/2012 CBC 2465041 EOS % 5.1 % 02/16/2012 CBC 0119998 BASO % 0.4 % 02/16/2012 CBC 6480726 RDW 13.0 % 02/16/2012 CBC 0009370 ABS LARA 3.95 10e9/L 02/16/2012 CBC 9668473 ABS LYMPH 2.10 10e9/L 02/16/2012 CBC 8070928 ABS MONO 0.65 10e9/L 02/16/2012 CBC 5802004 ABS EOS 0.36 10e9/L 02/16/2012 CBC 4385942 ABS BASO 0.03 10e9/L 02/16/2012 CBC 0145890 RDW-SD 42.4 fL 02/16/2012 URINALYSIS NONAUTO W/O SCOPE 23586 Specific [place] 1.015 DateTime(Free Text in Aprima) URINALYSIS NONAUTO W/O SCOPE 58542 PH 7 DateTime(Free Text in Aprima) URINALYSIS NONAUTO W/O SCOPE 95433 GLUCOSE neg DateTime(Free Text in Aprima) URINALYSIS NONAUTO W/O SCOPE 72936 Protein 1+ DateTime(Free Text in Aprima) URINALYSIS NONAUTO W/O SCOPE 23960 Blood neg DateTime(Free Text in Aprima) URINALYSIS NONAUTO W/O SCOPE 45198 Bilirubin neg DateTime(Free Text in Aprima) URINALYSIS NONAUTO W/O SCOPE 11378 Ketones neg DateTime(Free Text in Aprima) URINALYSIS NONAUTO W/O SCOPE 38724 Urobilinogen neg DateTime(Free Text in Aprima) URINALYSIS NONAUTO W/O SCOPE 27702 Nitrite postive DateTime(Free Text in Aprima) URINALYSIS NONAUTO W/O SCOPE 30165 Leukocytes 3+ DateTime(Free Text in Aprima) URINALYSIS NONAUTO W/O SCOPE 40082 Specific [place] 1.030 DateTime(Free Text in Aprima) URINALYSIS NONAUTO W/O SCOPE 27359 PH 6 DateTime(Free Text in Aprima) URINALYSIS NONAUTO W/O SCOPE 95361 GLUCOSE neg DateTime(Free Text in Aprima) URINALYSIS NONAUTO W/O SCOPE 46402 Protein neg DateTime(Free Text in Aprima) URINALYSIS NONAUTO W/O SCOPE 85926 Blood neg DateTime(Free Text in Aprima) URINALYSIS NONAUTO W/O SCOPE 77075 Bilirubin neg DateTime(Free Text in Aprima) URINALYSIS NONAUTO W/O SCOPE 54224 Ketones neg DateTime(Free Text in Aprima) URINALYSIS NONAUTO W/O SCOPE 57764 Urobilinogen neg DateTime(Free Text in Aprima) URINALYSIS NONAUTO W/O SCOPE 78691 Nitrite neg DateTime(Free Text in Aprima) URINALYSIS NONAUTO W/O SCOPE 11685 Leukocytes trace DateTime(Free Text in Aprima) URINALYSIS NONAUTO W/O SCOPE 60685 Specific [place] 1.005 DateTime(Free Text in Aprima) URINALYSIS NONAUTO W/O SCOPE 46803 PH 5 DateTime(Free Text in Aprima) URINALYSIS NONAUTO W/O SCOPE 00155 GLUCOSE neg DateTime(Free Text in Aprima) URINALYSIS NONAUTO W/O SCOPE 34521 Protein neg DateTime(Free Text in Aprima) URINALYSIS NONAUTO W/O SCOPE 29822 Blood neg DateTime(Free Text in Aprima) URINALYSIS NONAUTO W/O SCOPE 31841 Bilirubin neg DateTime(Free Text in Aprima) URINALYSIS NONAUTO W/O SCOPE 33617 Ketones neg DateTime(Free Text in Aprima) URINALYSIS NONAUTO W/O SCOPE 30390 Urobilinogen neg DateTime(Free Text in Aprima) URINALYSIS NONAUTO W/O SCOPE 95852 Nitrite neg DateTime(Free Text in Aprima) URINALYSIS NONAUTO W/O SCOPE 44202 Leukocytes neg DateTime(Free Text in Apr) UA 27519 Specific [place] 1.030 DateTime(Free Text in ) UA 97650 PH 5 DateTime(Free Text in ) UA 73483 GLUCOSE neg DateTime(Free Text in ) UA 10499 Protein trace DateTime(Free Text in Apr) UA 92246 Blood large DateTime(Free Text in Apr) UA 76195 Bilirubin neg DateTime(Free Text in Apr) UA 79979 Ketones neg DateTime(Free Text in Apr) UA 62114 Urobilinogen neg DateTime(Free Text in Apr) UA 33261 Nitrite neg DateTime(Free Text in ) UA 53783 Leukocytes large DateTime(Free Text in ) Review [...] Codes Date URINALYSIS NONAUTO W/O SCOPE CPT-4: 26031 07/10/2018 TRIAMCINOLONE ACET INJ NOS CPT-4: J3301 05/28/2018 ROCEPHIN, PER 250 MG CPT- 4: J0696 05/28/2018 ROCEPHIN, PER 250 MG CPT- 4: J0696 01/19/2018 TRIAMCINOLONE ACET INJ NOS CPT-4: J3301 01/19/2018 PPPS, SUBSEQ VISIT CPT- 4: G0439 11/23/2017 TRIAMCINOLONE ACET INJ NOS CPT-4: J3301 06/27/2017 THER/PROPH/DIAG INJ SC/IM CPT-4: 75183 04/20/2017 TRIAMCINOLONE ACET INJ NOS CPT-4: J3301 04/20/2017 TRIAMCINOLONE ACET INJ NOS CPT-4: J3301 03/14/2017 ROCEPHIN, PER 250 MG CPT- 4: J0696 03/14/2017 DESTRUCT PREMALG LESION CPT-4: 83399 12/05/2016 DESTRUCT PREMALG LES 2-14 CPT-4: 27003 12/05/2016 URINALYSIS NONAUTO W/O SCOPE CPT-4: 53629 11/28/2016 ROCEPHIN, PER 250 MG CPT- 4: J0696 11/28/2016 PPPS, SUBSEQ VISIT CPT- 4: G0439 11/07/2016 THER/PROPH/DIAG INJ SC/IM CPT-4: 27644 11/07/2016 TRIAMCINOLONE ACET INJ NOS CPT-4: J3301 11/07/2016 ROCEPHIN, PER 250 MG CPT- 4: J0696 11/07/2016 THER/PROPH/DIAG INJ SC/IM CPT-4: 66780 08/15/2016 TRIAMCINOLONE ACET INJ NOS CPT-4: J3301 08/15/2016 ROCEPHIN, PER 250 MG CPT- 4: J0696 08/15/2016 URINALYSIS NONAUTO W/O SCOPE CPT-4: 21210 05/05/2016 ROCEPHIN, PER 250 MG CPT- 4: J0696 12/07/2015 TRIAMCINOLONE ACET INJ NOS CPT-4: J3301 11/24/2015 ROCEPHIN, PER 250 MG CPT- 4: J0696 11/24/2015 THER/PROPH/DIAG INJ SC/IM CPT-4: 35519 11/24/2015 THER/PROPH/DIAG INJ SC/IM CPT-4: 43364 08/27/2015 KETOROLAC TROMETHAMINE INJ CPT-4: J1885 08/27/2015 PROMETHAZINE HCL INJECTION CPT-4: J2550 08/27/2015 THER/PROPH/DIAG INJ SC/IM CPT-4: 21302 08/10/2015 TRIAMCINOLONE ACET INJ NOS CPT-4: J3301 08/10/2015 ROCEPHIN, PER 250 MG CPT- 4: J0696 08/10/2015 C WOUN RTS (CULTURE OTHR SPECIMN AEROBIC) CPT-4: 09905 07/28/2015 THER/PROPH/DIAG INJ SC/IM CPT-4: 65269 03/19/2015 TRIAMCINOLONE ACET INJ NOS CPT-4: J3301 03/19/2015 ROCEPHIN, PER 250 MG CPT- 4: J0696 06/23/2014 TRIAMCINOLONE ACET INJ NOS CPT-4: J3301 06/23/2014 INJ TRIGGER POINT 1/2 MUSCL CPT-4: 99627 06/05/2014 URINALYSIS NONAUTO W/O SCOPE CPT-4: 35769 02/11/2014 URINALYSIS NONAUTO W/O SCOPE CPT-4: 76439 10/15/2013 ROCEPHIN, PER 250 MG CPT- 4: J0696 09/24/2013 THER/PROPH/DIAG INJ SC/IM CPT-4: 83313 09/19/2013 ROCEPHIN, PER 250 MG CPT- 4: J0696 09/19/2013 PRESCRIP TRANSMIT VIA ERX SY CPT-4: G8553 08/05/2013 ROCEPHIN, PER 250 MG CPT- 4: J0696 07/10/2013 THER/PROPH/DIAG INJ SC/IM CPT-4: 62370 07/10/2013 TRIAMCINOLONE ACET INJ NOS CPT-4: J3301 07/10/2013 PRESCRIP TRANSMIT VIA ERX SY CPT-4: G8553 07/10/2013 38390 EST. PATIENT, LEVEL III CPT-4: 94164 06/03/2013 PRESCRIP TRANSMIT VIA ERX SY CPT-4: G8553 06/03/2013 PRESCRIP TRANSMIT VIA ERX SY CPT-4: G8553 05/07/2013 ROUTINE VENIPUNCTURE CPT- 4: 09036 04/30/2013 ROUTINE VENIPUNCTURE CPT- 4: 14422 11/29/2012 TRIAMCINOLONE ACET INJ NOS CPT-4: J3301 09/24/2012 THER/PROPH/DIAG INJ SC/IM CPT-4: 51270 09/24/2012 URINALYSIS NONAUTO W/O SCOPE CPT-4: 94334 09/24/2012 PRESCRIP TRANSMIT VIA ERX SY CPT-4: G8553 09/24/2012 PRESCRIP TRANSMIT VIA ERX SY CPT-4: G8553 09/10/2012 PRESCRIP TRANSMIT VIA ERX SY CPT-4: G8553 08/08/2012 ROUTINE VENIPUNCTURE CPT- 4: 87369 08/07/2012 ROUTINE VENIPUNCTURE CPT- 4: 94097 02/16/2012 URINALYSIS NONAUTO W/O SCOPE CPT-4: 84507 02/15/2012 ROCEPHIN, PER 250 MG CPT- 4: J0696 02/15/2012 PRESCRIP TRANSMIT VIA ERX SY CPT-4: G8553 02/15/2012 ROUTINE VENIPUNCTURE CPT- 4: 52222 11/08/2011 ROCEPHIN, PER 250 MG CPT- 4: J0696 07/14/2011 THER/PROPH/DIAG INJ SC/IM CPT-4: 85968 07/14/2011 Influenza Virus Vaccine, Split Virus, >3 Yrs, IM CPT-4: 84032 05/23/2011 IMMUNIZATION ADMIN CPT- 4: 24343 05/23/2011 THER/PROPH/DIAG INJ SC/IM CPT-4: 58494 05/03/2011 ROCEPHIN, PER 250 MG CPT- 4: J0696 05/03/2011 TRIAMCINOLONE ACET INJ NOS CPT-4: J3301 05/03/2011 Vital Signs Date Vital 10/30/2018 Blood Pressure 1: 158/98 Code: 8480-6 BMI: 31.7 Code: 64191-2 Heart Rate 1: 80 bpm Height: 4'11" SpO2: 96% Weight: 157 lbs 10/08/2018 Blood Pressure 1: 140/80 Code: 8480-6 BMI: 32.1 Code: 60249-9 Heart Rate 1: 92 bpm Height: 4'11" SpO2: 103% Weight: 159 lbs 07/16/2018 Blood Pressure 1: 142/80 Code: 8480-6 BMI: 31.1 Code: 22443-0 Heart Rate 1: 78 bpm Height: 4'11" SpO2: 98% Weight: 154 lbs 07/10/2018 Blood Pressure 1: 156/82 Code: 8480-6 BMI: 31.1 Code: 64071-4 Heart Rate 1: 63 bpm Height: 4'11" SpO2: 99% Weight: 154 lbs 05/28/2018 Blood Pressure 1: 142/80 Code: 8480-6 Heart Rate 1: 82 bpm Height: SpO2: 97% Temperature: 35.9 (C) / 96.6 (F) Weight: 02/07/2018 Height: Weight: 01/19/2018 Blood Pressure 1: 128/76 Code: 8480-6 BMI: 31.2 Code: 35494-4 Heart Rate 1: 71 bpm Height: 4'11" SpO2: 96% Temperature: 36.5 (C) / 97.7 (F) Weight: 154 lbs 8 oz 11/23/2017 Blood Pressure 1: 146/80 Code: 8480-6 BMI: 31.7 Code: 22477-5 Heart Rate 1: 64 bpm Height: 4'11" SpO2: 97% Waist Measure (cm): 89 cm Weight: 157 lbs 09/12/2017 Blood Pressure 1: 140/86 Code: 8480-6 Heart Rate 1: 62 bpm SpO2: 96% Temperature: 36.6 (C) / 97.8 (F) Weight: 153 lbs 07/25/2017 Blood Pressure 1: 140/72 Code: 8480-6 BMI: 31.3 Code: 58310-9 Heart Rate 1: 76 bpm Height: 4'11" SpO2: 97% Temperature: 37.2 (C) / 99.0 (F) Weight: 155 lbs 06/27/2017 Blood Pressure 1: 144/84 Code: 8480-6 BMI: 31.1 Code: 83595-3 Heart Rate 1: 63 bpm Height: 4'11" SpO2: 99% Temperature: 36.4 (C) / 97.6 (F) Weight: 154 lbs 05/08/2017 Blood Pressure 1: 142/86 Code: 8480-6 BMI: 30.9 Code: 87834-7 Height: 4'11" Temperature: 36.3 (C) / 97.4 (F) Weight: 153 lbs 03/14/2017 Blood Pressure 1: 146/82 Code: 8480-6 BMI: 30.9 Code: 99500-3 Heart Rate 1: 64 bpm Height: 4'11" SpO2: 94% Weight: 153 lbs 02/20/2017 Blood Pressure 1: 142/80 Code: 8480-6 BMI: 30.9 Code: 74170-0 Heart Rate 1: 75 bpm Height: 4'11" SpO2: 97% Weight: 153 lbs 02/06/2017 Blood Pressure 1: 138/90 Code: 8480-6 BMI: 31.5 Code: 04468-2 Heart Rate 1: 61 bpm Height: 4'11" SpO2: 98% Weight: 156 lbs 12/05/2016 Blood Pressure 1: 122/72 Code: 8480-6 Heart Rate 1: 59 bpm Height: 4'11" SpO2: 98% Weight: 11/28/2016 Blood Pressure 1: 154/86 Code: 8480-6 BMI: 31.3 Code: 65989-4 Heart Rate 1: 64 bpm Height: 4'11" SpO2: 94% Temperature: 36.2 (C) / 97.2 (F) Weight: 155 lbs 11/07/2016 Blood Pressure 1: 128/64 Code: 8480-6 BMI: 31.5 Code: 26349-7 Heart Rate 1: 59 bpm Height: 4'11" SpO2: 97% Weight: 156 lbs 08/15/2016 Blood Pressure 1: 110/62 Code: 8480-6 BMI: 31.5 Code: 07522-1 Heart Rate 1: 76 bpm Height: 4'11" SpO2: 97% Weight: 156 lbs 06/07/2016 Blood Pressure 1: 120/80 Code: 8480-6 BMI: 32.9 Code: 27528-2 Heart Rate 1: 63 bpm Height: 4'11" SpO2: 93% Temperature: 36.5 (C) / 97.7 (F) Weight: 163 lbs 03/15/2016 Blood Pressure 1: 90/42 Code: 8480-6 Heart Rate 1: 65 bpm SpO2: 94% 03/14/2016 Blood Pressure 1: 188/110 Code: 8480-6 Heart Rate 1: 68 bpm SpO2: 96% 02/22/2016 Blood Pressure 1: 158/80 Code: 8480-6 BMI: 32.7 Code: 52147-6 Heart Rate 1: 71 bpm Height: 4'11" SpO2: 95% Weight: 162 lbs 12/07/2015 Blood Pressure 1: 140/88 Code: 8480-6 BMI: 32.9 Code: 05520-2 Heart Rate 1: 99 bpm Height: 4'11" SpO2: 94% Temperature: 35.9 (C) / 96.6 (F) Weight: 163 lbs 11/24/2015 Blood Pressure 1: 144/78 Code: 8480-6 BMI: 33.7 Code: 29159-9 Heart Rate 1: 60 bpm Height: 4'11" SpO2: 98% Temperature: 36.6 (C) / 97.9 (F) Weight: 167 lbs 08/27/2015 Blood Pressure 1: 164/82 Code: 8480-6 BMI: 32.3 Code: 07932-9 Heart Rate 1: 60 bpm Height: 4'11" SpO2: 93% Weight: 160 lbs 08/10/2015 Blood Pressure 1: 130/60 Code: 8480-6 BMI: 32.5 Code: 79589-0 Heart Rate 1: 64 bpm Height: 4'11" SpO2: 97% Weight: 161 lbs 07/28/2015 Blood Pressure 1: 124/68 Code: 8480-6 BMI: 32.5 Code: 01059-2 Heart Rate 1: 69 bpm Height: 4'11" SpO2: 97% Weight: 161 lbs 06/11/2015 Blood Pressure 1: 148/80 Code: 8480-6 BMI: 32.9 Code: 44793-2 Heart Rate 1: 70 bpm Height: 4'11" SpO2: 94% Weight: 163 lbs 03/19/2015 Blood Pressure 1: 150/102 Code: 8480-6 Blood Pressure 2: 152/92 Code: 8480-6 BMI: 32.5 Code: 00499-2 Heart Rate 1: 71 bpm Height: 4'11" SpO2: 96% Weight: 161 lbs 01/07/2015 Blood Pressure 1: 126/84 Code: 8480-6 Heart Rate 1: 80 bpm Height: 4'11" 09/23/2014 Blood Pressure 1: 112/72 Code: 8480-6 BMI: 33.9 Code: 26750-6 Heart Rate 1: 72 bpm Height: 4'11" Weight: 168 lbs 08/05/2014 Blood Pressure 1: 140/86 Code: 8480-6 BMI: 33.3 Code: 45033-9 Height: 4'11" Weight: 165 lbs 06/23/2014 Blood Pressure 1: 132/70 Code: 8480-6 BMI: 32.9 Code: 65058-5 Heart Rate 1: 58 bpm Height: 4'11" Temperature: 36.0 (C) / 96.8 (F) Weight: 163 lbs 06/05/2014 Blood Pressure 1: 121/85 Code: 8480-6 BMI: 34.3 Code: 18138-6 Height: 4'11" Weight: 170 lbs 04/03/2014 Blood Pressure 1: 128/80 Code: 8480-6 Heart Rate 1: 88 bpm Weight: 167 lbs 03/07/2014 Blood Pressure 1: 122/82 Code: 8480-6 BMI: 33.9 Code: 58253-5 Heart Rate 1: 68 bpm Height: 4'11" Weight: 168 lbs 11/21/2013 Blood Pressure 1: 100/58 Code: 8480-6 BMI: 33.7 Code: 27302-1 Heart Rate 1: 64 bpm Height: 4'11" Weight: 167 lbs 09/24/2013 Blood Pressure 1: 148/88 Code: 8480-6 Heart Rate 1: 68 bpm Weight: 09/19/2013 Blood Pressure 1: 120/80 Code: 8480-6 BMI: 33.9 Code: 71669-0 Heart Rate 1: 80 bpm Height: 4'11" Temperature: 36.9 (C) / 98.5 (F) Weight: 168 lbs 08/05/2013 Blood Pressure 1: 128/80 Code: 8480-6 BMI: 34.3 Code: 09885-0 Heart Rate 1: 64 bpm Height: 4'11" Temperature: 36.2 (C) / 97.2 (F) Weight: 170 lbs 07/10/2013 Blood Pressure 1: 120/84 Code: 8480-6 BMI: 36.0 Code: 40629-1 Heart Rate 1: 90 bpm Height: 4'11" SpO2: 97% Temperature: 36.8 (C) / 98.2 (F) Weight: 178 lbs 06/03/2013 Blood Pressure 1: 136/94 Code: 8480-6 BMI: 34.7 Code: 85702-4 Heart Rate 1: 68 bpm Height: 4'11" Temperature: 36.7 (C) / 98.0 (F) Weight: 172 lbs 05/13/2013 Blood Pressure 1: 132/90 Code: 8480-6 Heart Rate 1: 68 bpm 05/07/2013 Blood Pressure 1: 168/100 Code: 8480-6 BMI: 34.3 Code: 43065-5 Heart Rate 1: 76 bpm Height: 4'11" Weight: 170 lbs 12/03/2012 Blood Pressure 1: 142/78 Code: 8480-6 BMI: 33.5 Code: 14266-7 Heart Rate 1: 76 bpm Height: 4'11" Weight: 166 lbs 09/24/2012 Blood Pressure 1: 116/70 Code: 8480-6 Heart Rate 1: 68 bpm Respiratory Rate: 16 bpm Temperature: 36.9 (C) / 98.4 (F) Weight: 162 lbs 09/10/2012 Blood Pressure 1: 116/80 Code: 8480-6 BMI: 33.7 Code: 66345-5 Heart Rate 1: 76 bpm Height: 4'11" [...] 1: 149/85 Code: 8480-6 BMI: 32.9 Code: 04817-2 Heart Rate 1: 79 bpm Height: 4'11" Weight: 164 lbs 05/03/2011 Blood Pressure 1: 122/79 Code: 8480-6 BMI: 30.8 Code: 75128-8 Heart Rate 1: 72 bpm Height: 5'1" Weight: 163 lbs 04/25/2011 Blood Pressure 1: 137/84 Code: 8480-6 BMI: 31.0 Code: 96405-1 Heart Rate 1: 63 bpm Height: 5'1" [...] days ago 02/15/2012 while visiting mother in [place] had uti and was put on pyridum [...] surg in december. then took trip to [facility] and has had swelling [...] Quality chronic 08/01/2011 states went shopping on [employer] over night without taking any of medications [...] Encounters Encounter Performer Location Codes Date () 64429 EST. PATIENT, LEVEL IV Diagnosis: Essential (primary) hypertension[ICD10: I10] Diagnosis: Mixed hyperlipidemia[ICD10: E78.2] Diagnosis: Hypothyroidism, unspecified[ICD10: E03.9] Shahida Goldman MD, [facility] CPT-4: 91935 10/30/2018 39900 EST. PATIENT, LEVEL III Diagnosis: Other mucopurulent conjunctivitis, bilateral[ICD10: H10.023] Diagnosis: Other allergic rhinitis[ICD10: J30.89] Shahida Goldman MD, [facility] CPT-4: 45246 10/08/2018 05815 EST. PATIENT, LEVEL III Diagnosis: Essential (primary) hypertension[ICD10: I10] Diagnosis: Generalized anxiety disorder[ICD10: F41.1] Isabelle Goldman MD, [facility] CPT-4: 97354 07/16/2018 ([id number]) 11989 EST. PATIENT, LEVEL III Diagnosis: Acute recurrent maxillary sinusitis[ICD10: J01.01] Diagnosis: Frequency of micturition[ICD10: R35.0] Diagnosis: Low back pain[ICD10: M54.5] Shahida Goldman MD, [facility] CPT-4: 61926 07/10/2018 ([id number]) 27320 EST. PATIENT, LEVEL III Diagnosis: Acute recurrent maxillary sinusitis[ICD10: J01.01] Shahida Goldman MD, [facility] CPT-4: 10255 05/28/2018 ([id number]) Miscellaneous no charge Diagnosis: Laceration without foreign body, left lower leg, subsequent encounter[ICD10: S81.812D] Diagnosis: Laceration without foreign body, right lower leg, subsequent encounter[ICD10: S81.811D] Isabelle Goldman MD, [facility] CPT-4: 24046 02/08/2018 32988 EST. PATIENT, LEVEL III Diagnosis: Cellulitis of left lower limb[ICD10: L03.116] Diagnosis: Cellulitis of right lower limb[ICD10: L03.115] Diagnosis: Laceration without foreign body, left lower leg, initial encounter[ICD10: S81.812A] Diagnosis: Laceration without foreign body, right lower leg, initial encounter[ICD10: S81.811A] Isabelle Goldman MD, [facility] CPT-4: 21438 02/07/2018 ([id number]) 79439 EST. PATIENT, LEVEL IV Diagnosis: Primary generalized (osteo)arthritis[ICD10: M15.0] Diagnosis: Acute recurrent maxillary sinusitis[ICD10: J01.01] Diagnosis: Low back pain[ICD10: M54.5] Diagnosis: Other allergic rhinitis[ICD10: J30.89] Diagnosis: Obstructive sleep apnea (adult) (pediatric)[ICD10: G47.33] Shahida Goldman MD, [facility] CPT-4: 14521 01/19/2018 70073 EST. PATIENT, LEVEL IV Diagnosis: Diarrhea, unspecified[ICD10: R19.7] Diagnosis: Generalized abdominal pain[ICD10: R10.84] Diagnosis: Other allergic rhinitis[ICD10: J30.89] Diagnosis: Other acute sinusitis[ICD10: J01.80] Isabelle Goldman MD, [facility] CPT- 4: 62186 09/12/2017 28724 EST. PATIENT, LEVEL III Diagnosis: Acute laryngopharyngitis[ICD10: J06.0] Diagnosis: Other allergic rhinitis[ICD10: J30.89] Diagnosis: Cough[ICD10: R05] Diagnosis: Wheezing[ICD10: R06.2] Isabelle Goldman MD, [facility] CPT-4: 42703 07/25/2017 ([id number]) 65856 EST. PATIENT, LEVEL IV Diagnosis: Acute recurrent maxillary sinusitis[ICD10: J01.01] Diagnosis: Cervicalgia[ICD10: M54.2] Diagnosis: Diarrhea, unspecified[ICD10: R19.7] Shahida Goldman MD, [facility] CPT-4: 91928 06/27/2017 ([id number]) 95007 EST. PATIENT, LEVEL III Diagnosis: Chronic maxillary sinusitis[ICD10: J32.0] Diagnosis: Gastro-esophageal reflux disease without esophagitis[ICD10: K21.9] Shahida Goldman MD, [facility] CPT-4: 44826 05/08/2017 ([id number]) 98692 EST. PATIENT, LEVEL III Diagnosis: Acute recurrent maxillary sinusitis[ICD10: J01.01] Shahida Goldman MD, [facility] CPT-4: 16968 03/14/2017 10222 EST. PATIENT, LEVEL IV Diagnosis: Epigastric pain[ICD10: R10.13] Diagnosis: Left upper quadrant pain[ICD10: R10.12] Diagnosis: Left lower quadrant pain[ICD10: R10.32] Isabelle Goldman MD, [facility] CPT-4: 32019 02/20/2017 ([id number]) 40408 EST. PATIENT, LEVEL IV Diagnosis: Generalized anxiety disorder[ICD10: F41.1] Diagnosis: Major depressive disorder, recurrent, moderate[ICD10: F33.1] Diagnosis: Left upper quadrant pain[ICD10: R10.12] Diagnosis: Epigastric pain[ICD10: R10.13] Diagnosis: Actinic keratosis[ICD10: L57.0] Melba Goldman MD, [facility] CPT-4: 18258 02/06/2017 ([id number]) 41682 EST. PATIENT, LEVEL III Diagnosis: Actinic keratosis[ICD10: L57.0] Diagnosis: Major depressive disorder, recurrent, moderate[ICD10: F33.1] Melba Goldman MD, [facility] CPT-4: 15179 12/05/2016 ([id number]) 93740 EST. PATIENT, LEVEL III Diagnosis: Acute recurrent maxillary sinusitis[ICD10: J01.01] Diagnosis: Dysuria[ICD10: R30.0] Shahida Goldman MD, [facility] CPT-4: 71354 11/28/2016 29594 EST. PATIENT, LEVEL IV Diagnosis: Other acute sinusitis[ICD10: J01.80] Diagnosis: Acute laryngopharyngitis[ICD10: J06.0] Diagnosis: Other allergic rhinitis[ICD10: J30.89] Isabelle Glodman MD, [facility] CPT- 4: 43313 08/15/2016 ([id number]) 77675 EST. PATIENT, LEVEL III Diagnosis: Acute recurrent maxillary sinusitis[ICD10: J01.01] Diagnosis: Low back pain[ICD10: M54.5] Shahida Goldman MD, [facility] CPT-4: 21479 06/07/2016 ([id number]) Miscellaneous no charge Diagnosis: Essential (primary) hypertension[ICD10: I10] Shahida Goldman MD, [facility] CPT-4: 89580 03/15/2016 31882 EST. PATIENT, LEVEL IV Diagnosis: Essential (primary) hypertension[ICD10: I10] Diagnosis: Headache[ICD10: R51] Diagnosis: Generalized anxiety disorder[ICD10: F41.1] Shahida Goldman MD, [facility] CPT-4: 49913 03/14/2016 79790 EST. PATIENT, LEVEL III Diagnosis: Laceration without foreign body, left lower leg, initial encounter[ICD10: S81.812A] Isabelle Goldman MD, [facility] CPT-4: 06885 02/22/2016 ([id number]) 42451 EST. PATIENT, LEVEL III Diagnosis: Acute recurrent maxillary sinusitis[ICD10: J01.01] Diagnosis: Cough[ICD10: R05] Diagnosis: Allergic rhinitis due to pollen[ICD10: J30.1] Shahida Goldman MD, [facility] CPT-4: 85269 12/07/2015 ([id number]) 17130 EST. PATIENT, LEVEL IV Diagnosis: Essential (primary) hypertension[ICD10: I10] Diagnosis: Acute recurrent maxillary sinusitis[ICD10: J01.01] Diagnosis: Generalized anxiety disorder[ICD10: F41.1] Diagnosis: Cervicalgia[ICD10: M54.2] Diagnosis: Generalized intra-abdominal and pelvic swelling, mass and lump[ICD10: R19.07] Melba Goldman MD, [facility] CPT-4: 46633 11/24/2015 13060 EST. PATIENT, LEVEL III Diagnosis: Other migraine, intractable, without status migrainosus[ICD10: G43.819] Isabelle Goldman MD, [facility] CPT-4: 05444 08/27/2015 20138 EST. PATIENT, LEVEL III Diagnosis: Acute recurrent maxillary sinusitis[ICD10: J01.01] Diagnosis: Candidal stomatitis[ICD10: B37.0] Diagnosis: Acute laryngopharyngitis[ICD10: J06.0] Isabelle Goldman MD, [facility] CPT- 4: 41559 08/10/2015 65493 EST. PATIENT, LEVEL III Diagnosis: Superficial foreign body of left hand, initial encounter[ICD10: S60.552A] Melba Goldman MD, [facility] CPT-4: 06510 07/28/2015 ([id number]) 91054 EST. PATIENT, LEVEL III Diagnosis: Essential (primary) hypertension[ICD10: I10] Diagnosis: Tinea cruris[ICD10: B35.6] Diagnosis: Abnormal levels of other serum enzymes[ICD10: R74.8] Shahida Goldman MD, [facility] CPT-4: 79341 06/11/2015 ([id number]) 41633 EST. PATIENT, LEVEL IV Diagnosis: ESSENTIAL HYPERTENSION[ICD9: 401.9] Diagnosis: Hypothyroid[ICD9: 244.9] Diagnosis: ALLERGIC RHINITIS[ICD9: 477.9] Diagnosis: Anxiety[ICD9: 300.00] Diagnosis: Sleep apnea[ICD9: 780.57] Shahida Goldman MD, [facility] CPT-4: 29164 03/19/2015 ([id number]) 49042 EST. PATIENT, LEVEL III Diagnosis: ACUTE SINUSITIS[ICD9: 461.9] Celi Arcossuhas Goldman MD, [facility] CPT-4: 77123 01/07/2015 ([id number]) 04427 EST. PATIENT, LEVEL III Diagnosis: Conjunctivitis[ICD9: 372.30] Shahida Goldman MD, [facility] CPT-4: 21142 09/23/2014 63316 EST. PATIENT, LEVEL II Diagnosis: Noninfected skin tear of leg[ICD9: 891.0] Shahida Goldman MD, [facility] CPT-4: 14855 08/05/2014 ([id number]) 09244 EST. PATIENT, LEVEL III Diagnosis: Chronic maxillary sinusitis[ICD9: 473.0] Shahida Goldman MD, [facility] CPT-4: 95986 06/23/2014 44902 EST. PATIENT, LEVEL II Diagnosis: Headache[ICD9: 784.0] Shahida Goldman MD, [facility] CPT-4: 21956 06/05/2014 ([id number]) 77971 EST. PATIENT, LEVEL III Diagnosis: Abrasion of right leg[ICD9: 916.0] Diagnosis: Headache[ICD9: 784.0] Diagnosis: ALLERGIC RHINITIS[ICD9: 477.9] Shahida Goldman MD, [facility] CPT-4: 62821 04/03/2014 27628 EST. PATIENT, LEVEL II Diagnosis: Tinea corporis[ICD9: 110.5] Diagnosis: Exposure to scabies[ICD9: V01.89] Shahida Goldman MD, [facility] CPT- 4: 24807 03/07/2014 ([id number]) 67011 EST. PATIENT, LEVEL III Diagnosis: ESSENTIAL HYPERTENSION[SNOMED: 42161175] Diagnosis: OSTEOARTH NOS-UNSPEC[ICD9: 715.90] Diagnosis: Lumbago[ICD9: 724.2] Diagnosis: Cervicalgia[ICD9: 723.1] Shahida Goldman MD, [facility] CPT-4: 82715 11/21/2013 ([id number]) 78483 EST. PATIENT, LEVEL III Diagnosis: DEPRESSIVE DISORDER NEC[ICD9: 311] Diagnosis: Paronychia[ICD9: 681.9] Melba Goldman MD, [facility] CPT-4: 67391 09/24/2013 ([id number]) 59379 EST. PATIENT, LEVEL III Diagnosis: Paronychia[ICD9: 681.9] Diagnosis: Cellulitis[ICD9: 682.9] Melba Goldman MD, [facility] CPT-4: 53876 09/19/2013 ([id number]) 78367 EST. PATIENT, LEVEL III Diagnosis: Conjunctivitis[ICD9: 372.30] Diagnosis: Thrush[ICD9: 112.0] Shahida Goldman MD, [facility] CPT-4: 80864 08/05/2013 ([id number]) 87042 EST. PATIENT, LEVEL III Diagnosis: ACUTE MAXILLARY SINUSITIS[ICD9: 461.0] Diagnosis: COUGH[ICD9: 786.2] Diagnosis: Insomnia[ICD9: 780.52] Diagnosis: ESOPHAGEAL REFLUX[ICD9: 530.81] Melba Goldman MD, [facility] CPT-4: 65246 07/10/2013 ([id number]) Miscellaneous no charge Diagnosis: ESSENTIAL HYPERTENSION[SNOMED: 34927510] Melba Goldman MD, [facility] CPT-4: 54530 05/13/2013 ([id number]) 87034 EST. PATIENT, LEVEL IV Diagnosis: ESSENTIAL HYPERTENSION[SNOMED: 87876293] Diagnosis: HYPOTHYROIDISM[ICD9: 244.9] Diagnosis: OSTEOARTH NOS-UNSPEC[ICD9: 715.90] Melba Goldman MD, [facility] CPT- 4: 93506 05/07/2013 ([id number]) 03986 EST. PATIENT, LEVEL IV Diagnosis: Osteoarthritis[ICD9: 715.90] Diagnosis: Knee pain, bilateral[ICD9: 719.46] Diagnosis: Hip pain[ICD9: 719.45] Melba Goldman MD, [facility] CPT-4: 45882 12/03/2012 ([id number]) 64285 EST. PATIENT, LEVEL III Diagnosis: Thrush[ICD9: 112.0] Melba Goldman MD, [facility] CPT-4: 57507 09/24/2012 ([id number]) 99536 EST. PATIENT, LEVEL IV Diagnosis: ESSENTIAL HYPERTENSION[SNOMED: 86350655] Diagnosis: Thrush[ICD9: 112.0] Diagnosis: Sleep apnea[ICD9: 780.57] Melba Goldman MD [facility] CPT-4: 10098 09/10/2012 ([id number]) 94630 EST. PATIENT, LEVEL IV Diagnosis: Esophageal reflux[ICD9: 530.81] Diagnosis: Hypothyroid[ICD9: 244.9] Diagnosis: JOINT PAIN-MULT JOINTS[ICD9: 719.49] Diagnosis: ALLERGIC RHINITIS[ICD9: 477.9] Melba Goldman MD, [facility] CPT-4: 14180 08/08/2012 ([id number]) 11370 EST. PATIENT, LEVEL IV Diagnosis: Urinary frequency[ICD9: 788.41] Diagnosis: EDEMA[ICD9: 782.3] Diagnosis: HYPOTHYROIDISM[ICD9: 244.9] Diagnosis: Fatigue[ICD9: 780.79] Melba Goldman MD, [facility] CPT-4: 02085 02/15/2012 ([id number]) 68206 EST. PATIENT, LEVEL IV Diagnosis: Abdominal pain[ICD9: 789.00] Diagnosis: Fatigue[ICD9: 780.79] Diagnosis: Nausea[ICD9: 787.02] Melba Goldman MD, [facility] CPT-4: 22628 11/10/2011 62446 EST. PATIENT, LEVEL IV Diagnosis: ESSENTIAL HYPERTENSION[SNOMED: 71109144] Diagnosis: DIARRHEA[ICD9: 787.91] Diagnosis: DEPRESSIVE DISORDER NEC[ICD9: 311] Diagnosis: Irritable bowel disease[ICD9: 564.1] Melba Goldman MD, [facility] CPT- 4: 24921 08/01/2011 85242 EST. PATIENT, LEVEL III Diagnosis: ACUTE SINUSITIS[ICD9: 461.9] Diagnosis: Cough[ICD9: 786.2] Shahida Goldman MD, [facility] CPT-4: 69613 07/14/2011 56194 EST. PATIENT, LEVEL IV Diagnosis: VACCIN FOR INFLUENZA[ICD9: V04.81] Diagnosis: ESSENTIAL HYPERTENSION[SNOMED: 27700180] Diagnosis: GENERALIZED ANXIETY DISEASE[ICD9: 300.02] Diagnosis: SLEEP DISTURBANCES[ICD9: 780.50] Shahida Goldman MD, [facility] CPT- 4: 43030 05/23/2011 01422 EST. PATIENT, LEVEL III Diagnosis: ACUTE SINUSITIS[ICD9: 461.9] Diagnosis: ALLERGIC RHINITIS[ICD9: 477.9] Diagnosis: Cough[ICD9: 786.2] Shahiad Goldman MD, [facility] CPT-4: 50491 05/03/2011 39596 EST. PATIENT, LEVEL IV Diagnosis: ESSENTIAL HYPERTENSION[SNOMED: 58017299] Diagnosis: DEPRESSIVE DISORDER NEC[ICD9: 311] Diagnosis: Fatigue[ICD9: 780.79] Shahida Goldman MD, [facility] CPT-4: 15863 04/25/2011 Plan of Care Planned Activity Notes [...] call for acute concerns. Hyperlipidemia-check fasting labs Ebxlrnnaedjupb-otgzhty-dgubq labs 10/30/2018 Visit Plan: Hypertension - uncontrolled [...] call for acute concerns. Hyperlipidemia-check fasting labs Ejysetheielbiy-kspstsi-cygtl labs 10/30/2018 Appointment: Shahida Manzo WPtel: [address] [place], [place] [phone] (30 min) [facility] 10/30/2018 Patient Education: Patient Medication Summary Completed 10/30/2018 Care Plan: Cbc With Differential Pending 10/30/2018 Care Plan: Comp Metabolic Pending 10/30/2018 Care Plan: Tsh Pending 10/30/2018 Care Plan: Lipid Pending 10/30/2018 Care Plan: Free T4 Pending 10/30/2018 Visit Plan: Conjunctivitis - rx for eye drops/lube sent electronically to the patient's pharmacy. The patient has been instructed to cleanse affected eye with warm washcloth, then place medication into affected eye four times daily. 10/08/2018 Appointment: Shahida Manzo WPtel: [phone] [phone] [place] (30 min) Complex 10/08/2018 Patient Education: Patient Medication Summary Completed 10/08/2018 Appointment: Isabelle Orozco WPtel: [phone] [facility] (15 min) Moderate 07/30/2018 Visit Plan: Anxiety [...] concerns. 07/16/2018 Appointment: Isabelle Orozco WPtel: [phone] [facility] [place] (15 min) Moderate 07/16/2018 Patient Education: Patient [...] 07/10/2018 Appointment: Shahida Manzo WPtel: [phone] [phone] (15 min) Moderate 07/10/2018 Patient Education: Patient Medication Summary Completed 07/10/2018 Patient Education: Back Pain Completed 07/10/2018 Visit Plan: Sinusitis - Pt has acute infection - pain in face, maxillary region, Pt informed to use decongestant, RX given to patient, sinus rinses also recommended. Call if symptoms do not show improvement. 05/28/2018 Appointment[phone] (30 min) Complex 05/28/2018 Patient Education: Patient [...] acute concerns. 02/07/2018 Appointment: Isabel[facility]el[facility] [phone] [facility] (15 min) Moderate 02/07/2018 Patient Education: [...] less fatigue 01/19/2018 Appointment: Shahida Manzo WPtel: [address] [place], [place] [phone] (15 min) Moderate 01/19/2018 Patient Education: Patient [...] care surrogate. 11/23/2017 Appointment: Isabelle Orozco WPtel: [address] [place] [phone] [facility] - Annual Wellness Visit 11/23/2017 Patient [...] improvement. 09/12/2017 Appointment: Isabelle Orozco WPtel: [phone] [facility] (15 min) Moderate 09/12/2017 Patient Education: [...] allergy spray. 07/25/2017 Appointment: Isabelle Orozco WPtel: [facility] (30 min) Complex 07/25/2017 Patient Education: Patient [...] available 06/27/2017 Appointment: Shahida Manzo WPtel: [phone] [phone] (15 min) Moderate 06/27/2017 Patient Education: [...] improving. 05/08/2017 Appointment: Shahida Manzo WPtel: [phone] [phone] (15 min) Moderate 05/08/2017 Patient Education: [...] 03/14/2017 Appointment: Shahida Manzo WPtel: [phone] [phone] (15 min) Moderate 03/14/2017 Patient Education: Patient Medication Summary Completed 03/14/2017 Appointment: Shahida Manzo WPtel: [phone] [phone] [place] (15 min) Moderate 02/21/2017 Visit [...] improving. 02/20/2017 Appointment: Isabelle Orozco WPtel: [phone] [facility] [place] (30 min) Complex 02/20/2017 Patient Education: [...] Appointment: Mel[facility] Goldman [facility]el[facility] [phone] [facility] [place] (15 min) Moderate 02/06/2017 Patient Education: [...] this patient. 12/05/2016 Appointment: Melba Goldman WPtel: [facility] Surgical Procedure 12/05/2016 Patient Education: Patient Medication Summary Completed 12/05/2016 Visit Plan: Sinusitis - Pt has acute infection - pain in face, maxillary region, Pt informed to use decongestant, RX given to patient, sinus rinses also recommended. Call if symptoms do not show improvement. Dysuria- culture urine 11/28/2016 Appointment: Shahida Manzo WPtel: [phone] (15 min) Moderate 11/28/2016 Patient Education: Patient [...] of control. 11/07/2016 Appointment: Isabelle Orozco WPtel: [facility] [facility] - Annual Wellness Visit 11/07/2016 Patient [...] [phone] (15 min) Moderate 08/15/2016 Patient [...] use. 06/07/2016 Appointment: Shahida Manzo [facility]Ptel[facility] [phone] [phone] (10 min) Simple 06/07/2016 Patient [...] office today 03/14/2016 Appointment: Shahida Manzo WPtel: [phone] [phone] (15 min) Moderate 03/14/2016 Patient Education: Patient Medication Summary Completed 03/14/2016 Care Plan: COMPLETE CBC AUTOMATED LOINC : 75389-2 Pending 03/14/2016 Visit Plan: Cellulitis - The patient was instructed in appropriate wound care. The patient was instructed to use the antibiotic ointment as per RX. The patient is to call for any change in symptoms, increase in size of the lesion, increase in pain. 02/22/2016 Appointment: Isabelle Orozco WPtel: [phone] [facility] ([facility] min[facility] Moderate 02/22/2016 Patient [...] dai 11/24/2015 Appointment: Melba Goldman WPtel: [address] [facility] [address] (30 min) [facility] 11/24/2015 Patient Education: Patient Medication Summary Completed 11/24/2015 Patient Education: Obesity Completed 11/24/2015 Patient Education: Hypertension Completed 11/24/2015 Patient Education: .Cervicalgia Neck Pain Completed 11/24/2015 Care Plan: Referral Order SNOMED-CT : [id number] Ordered 11/24/2015 Visit Plan: Acute Migraine - [...] to monitor 06/11/2015 Appointment: Shahida Manzo WPtel: [phone] (15 min) Moderate 06/11/2015 Patient Education: [...] OFFICE Sleep apnea-patient needs new CPAP-will contact [facility] patient Pt reports that she uses her [...] OFFICE Sleep apnea-patient needs new CPAP-will contact [facility] patient Pt reports that she uses her [...] OFFICE Sleep apnea-patient needs new CPAP-will contact [facility] patient 03/19/2015 Appointment: (15 min) Moderate [...] areas dry Exposure to scabies-RX sent to [facility]. 03/07/2014 Appointment: Melba Goldman WPtel: [facility]5 [facility] [place] rash 03/07/2014 Patient Education: Patient [...] change in blood pressure readings at home. Kvybprq-cvtvrcjwfiy-gwhplkrp duragesic patch-appt with Dr Ortiz for pain management 11/21/2013 Appointment: Shahida Manzo WPtel: [facility] Follow up 11/21/2013 Patient Education: Patient Medication Summary Completed 11/21/2013 Patient Education: Hypertension Completed 11/21/2013 Patient Education: .Cervicalgia Neck Pain Completed 11/21/2013 Appointment: Melba Goldman WPtel: [facility]5 [facility] [place] Other 11/19/2013 Appointment: Melba Goldman WPtel: [address] [place], [place] [phone] Follow up 11/06/2013 Appointment: Melab Goldman WPtel: [facility]5 [facility] Lab Draw 10/15/2013 Patient Education: Patient Medication [...] AT BEDTIME 09/24/2013 Appointment: Shahida Manzo WPtel: [address] [place] [address] Other 09/24/2013 Patient Education: Patient Medication Summary Completed 09/24/2013 Visit Plan: Paronychia/Cellulitis - continue with oral antibiotics as previously directed, return to clinic as previously directed, call for acute change in symptoms, worsening redness, warmth, discharge. 09/19/2013 Appointment: Melba Goldman WPtel: [address] [place], [place] [phone] Other 09/19/2013 Patient Education: Patient Medication Summary Completed 09/19/2013 Visit Plan: Conjunctivitis - rx for eye drops/lube sent electronically to the patient's pharmacy. The patient has been instructed to cleanse affected eye with warm washcloth, then place medication into affected eye four times daily. Thrush-refill nystatin-call if symptoms do not resolve 08/05/2013 Appointment: Shahida Manzo WPtel: [address] [place], [place] [phone] [place] Sick 08/05/2013 Patient Education: Patient Medication [...] improvement. 06/03/2013 Appointment: Melba Goldman WPtel: [phone] [facility] [place] Follow up 06/03/2013 Patient Education: Patient Medication Summary Completed 06/03/2013 Patient Education: Hypertension Completed 06/03/2013 Appointment: Melba Goldman WPtel: [phone] [facility] [address] [place] Nurse Visit 05/13/2013 Patient Education: Patient [...] control. 05/07/2013 Appointment: Melba Goldman WPtel: [phone] [facility] [address] Follow up 05/07/2013 Patient Education: Patient Medication Summary Completed 05/07/2013 Patient Education: Hypertension Completed 05/07/2013 Patient Education: Patient Medication Summary Completed 04/30/2013 Patient Education: Hypertension Completed 04/30/2013 Visit Plan: Arthritis- occasionally uncontrolled symptoms- recommend pt to take antiinflammatory as directed for pain control. Use tylenol for break through pain symptoms. 12/03/2012 Appointment: Melba Goldman WPtel: [phone] [facility] [address] Follow up 12/03/2012 Patient Education: Patient Medication [...] not resolve 09/24/2012 Appointment: Shahida Manzo WPtel: [facility]1 [phone] [place] [address] 09/24/2012 Patient Education: Patient Medication Summary Completed [...] with diflucan 09/10/2012 Appointment: Melba Goldman WPtel: [facility] Follow up 09/10/2012 Patient Education: Patient [...] pain symptoms. 08/08/2012 Appointment: Shahida Manzo WPtel: [phone] Follow up 08/08/2012 Patient Education: Patient Medication Summary Completed 08/08/2012 Patient Education: Patient Medication Summary Completed 08/07/2012 Patient Education: Hypertension Completed 08/07/2012 Appointment: Melba Goldman WPtel: [facility]5 [facility] Lab Draw 02/16/2012 Patient Education: Patient [...] Needs labs. 02/15/2012 Appointment: Melba Goldman WPtel: [facility]5 [facility] Other 02/15/2012 Patient Education: Patient Medication Summary Completed 02/15/2012 Visit Plan: Abdominal pain - ultrasound tomorrow AM nothing to eat before the ultrasound from 11pm tonight bland diet. Nausea - worse with fatty foods, recommended low fat/bland diet, call if symptoms worsening. 11/10/2011 Appointment: Melba Goldman WPtel: [address] [place], [place] [phone] Other 11/10/2011 Patient Education: Patient Medication Summary [...] stools. 08/01/2011 Appointment: Melba Goldman WPtel: [phone] [facility] [address] [place] Other 08/01/2011 Patient Education: Patient Medication Summary Completed 08/01/2011 Patient Education: High Blood Pressure: Essential Hypertension Completed 08/01/2011 Visit Plan: Sinusitis - Pt has acute infection - pain in face, maxillary region, Pt informed to use decongestant, RX given to patient, sinus rinses also recommended. Call if symptoms do not show improvement. Cough- kishore zurita 07/14/2011 Appointment: Shahida Manzo [facility]Ptel: [phone] [place] Other 07/14/2011 Patient Education: [...] the office. 05/23/2011 Appointment: Shahida Manzo WPtel: [address] [place] [address] Other 05/23/2011 Patient Education: Patient Medication Summary [...] for patient. Cough-refill cough med 05/03/2011 Appointment: Jovany Shahida WPtel: [facility]9 [phone] Other 05/03/2011 Patient Education: Patient Medication Summary [...] the HPI, physical exam, and the as sesent and plan. I discussed the plan and [...] her symptoms. 04/25/2011 Appointment: Shahida Manzo WPtel: [address] [place], [place] [address] Other 04/25/2011 Patient Education: Patient Medication Summary [...] OFFICE Sleep apnea-patient needs new CPAP-will contact [facility] Pt reports that she uses [...] OFFICE Sleep apnea-patient needs new CPAP-will contact [facility] patient Pt reports that she uses [...] OFFICE Sleep apnea-patient needs new CPAP-will contact [facility] patient LOSARTAN 50MG DAILY MONITOR BLOOD [...] call for acute concerns. Hyperlipidemia-check fasting labs Xooqudovrshryx-xwdtjzi-ouxvo labs LOSARTAN 50MG DAILY MONITOR BLOOD PRESSURE [...] call for acute concerns. Hyperlipidemia-check fasting labs Ypmwfjeqmilzyc-wgtybeo-kxlvd labs . Sinusitis - Pt has acute [...] not show improvement. Gentamicin nasal spray to [facility] Increase prilosec to twice daily . [...] areas dry Exposure to scabies-RX sent to [facility]. rocephin/kenalog . Sinusitis - Pt [...] change in blood pressure readings at home. Tnewmgf-fqmmdkokjfo-txvkview duragesic patch-appt with Dr Ortiz for pain [...]
--- OUTSIDE RECORDS SUMMARY | 2019-03-08 16:15 | XMS REPORT | CCD ---
Author Author [facility] Address [address] [place] [address] Phone Care Team Providers Care [employer] Supervisor Name Role Phone PP Unavailable CCM Unavailable Summary Purpose Interface Exchange Insurance Providers Payer name Policy type / Coverage type Covered constitution party ID Effective Begin Date Effective End Date [employer] Medicare Part B [id number] Unknown Family history Son Diagnosis Age At Onset Crohn's disease Unknown Brother Diagnosis Age At Onset Cardiovascular disease Unknown Mother Diagnosis Age At Onset Hypertension Unknown Father Diagnosis Age At Onset Cardiovascular disease Unknown Social History Social History Element Codes Description Effective Dates Marital status Unknown 04/22/2011 Number of children Unknown 3 1 son -Crohns 04/22/[address]: 605003635 Nonsmoker 04/22/2011 Allergies, Adverse Reactions, Alerts Substance Reaction Codes Entered Date Inactivated Date Status * NO KNOWN FOOD ALLERGIES Unknown 05/19/2011 No Inactive Date Active * NO KNOWN DRUG ALLERGIES Unknown 04/22/2011 No Inactive Date Active Past Medical History Illness Codes Condition Status Onset Date Resolved Date Other allergic rhinitis ICD-9: 477.8 ICD-10: J30.89 Active 08/14/2016 Unknown Other mucopurulent conjunctivitis, bilateral ICD-9: 372.03 ICD-10: H10.023 Active 10/08/2018 Unknown Essential (primary) hypertension ICD-9: 401.1 ICD-10: I10 Active 07/16/2018 Unknown Generalized anxiety disorder ICD-9: 300.00 ICD-10: [...] ICD-9: 296.32 ICD-10: F33.1 Active 12/05/2016 Unknown Hypothyroidism, unspecified ICD-9: 244.9 ICD-10: E03.9 Active 11/07/2016 Unknown Essential (primary) hypertension ICD-9: 401.9 ICD-10: [...] Problems Condition Codes Effective Dates Condition Status Other allergic rhinitis ICD-9: 477.8 ICD-10: J30.89 08/14/2016 Active Other mucopurulent conjunctivitis, bilateral ICD-9: 372.03 ICD-10: H10.023 10/08/2018 Active Essential (primary) hypertension ICD-9: 401.1 ICD-10: I10 07/16/2018 Active Generalized anxiety disorder ICD-9: 300.00 ICD-10: [...] moderate ICD-9: 296.32 ICD-10: F33.1 12/05/2016 Active Hypothyroidism, unspecified ICD-9: 244.9 ICD-10: E03.9 11/07/2016 Active Essential (primary) hypertension ICD-9: 401.9 ICD-10: [...] Fill Instructions Lexapro 20 mg tablet RxNorm: 351796 TAKE ONE AND ONE-HALF TABLET BY MOUTH DAILY 10/23/2018 10/17/2019 Active alprazolam 0.25 mg tablet RxNorm: 828885 1 Tablet(s) PO TID as needed 10/10/2018 01/07/2019 Active polymyxin B sulfate 10,000 unit-trimethoprim 1 mg/mL eye drops RxNorm: 668615 2 Drop(s) ophthalmic (eye) QID 10/08/2018 10/14/2018 Inactive hydrocodone 10 mg-acetaminophen 325 mg tablet RxNorm: 689829 Tablet(s) PO TAKE ONE TO TWO TABLETS BY MOUTH EVERY 6 HOURS NEEDED FOR PAIN 09/11/2018 09/25/2018 Inactive piroxicam 20 mg capsule RxNorm: 401528 TAKE ONE CAPSULE BY MOUTH DAILY 08/09/2018 01/05/2019 Active trazodone 50 mg tablet RxNorm: 960874 TAKE ONE AND ONE-HALF (1 1/2) TABLET BY MOUTH AT BEDTIME. MAY INCREASE TO 2 TABLETS AT BEDTIME NEEDED 08/02/2018 11/19/2018 Active Nexium 40 mg capsule,delayed release RxNorm: 474354 TAKE ONE CAPSULE BY MOUTH TWICE A DAY 07/23/2018 11/19/2018 Active Bystolic 5 mg tablet RxNorm: 485682 1 Tablet(s) PO daily to take with 10 mg daily to equal 15mg daily 07/17/2018 No Stop Date Active alprazolam 0.25 mg tablet RxNorm: 949992 1 Tablet(s) PO TID as needed 07/16/2018 10/12/2018 Inactive hydrocodone 10 mg-acetaminophen 325 mg tablet RxNorm: 469938 Tablet(s) PO TAKE ONE TO TWO TABLETS BY MOUTH EVERY 6 HOURS NEEDED FOR PAIN 07/10/2018 07/24/2018 Inactive prednisone 20 mg tablet RxNorm: 257208 1 Tablet(s) PO BID 07/10/2018 07/14/2018 Inactive Phenergan with Codeine Syrup RxNorm: 5-10 Milliliter(s) PO Q6 PRN 06/28/2018 No Stop Date Active prednisone 20 mg tablet RxNorm: 172639 2 Tablet(s) PO daily 05/31/2018 06/04/2018 Inactive prednisone 20 mg tablet RxNorm: 013724 2 Tablet(s) PO daily 05/31/2018 05/30/2018 Inactive ceftriaxone 500 mg solution for injection RxNorm: 7006202 Inj 05/28/2018 05/28/2018 Inactive doxycycline hyclate 100 mg tablet RxNorm: 0252972 1 Tablet(s) PO BID 05/28/2018 06/06/2018 Inactive Kenalog 40 mg/mL suspension for injection RxNorm: 4028779 Milliliter(s) Inj 05/28/2018 05/28/2018 Inactive hydrocodone 10 mg-acetaminophen 325 mg tablet RxNorm: 152386 Tablet(s) PO TAKE ONE TO TWO TABLETS BY MOUTH EVERY 6 HOURS NEEDED FOR PAIN 05/09/2018 05/23/2018 Inactive alprazolam 0.25 mg tablet RxNorm: 717866 1 Tablet(s) PO daily as needed 04/25/2018 07/15/2018 Inactive Bystolic 10 mg tablet RxNorm: 709836 TAKE ONE TABLET BY MOUTH DAILY 04/16/2018 09/12/2018 Inactive hydrocodone 10 mg-acetaminophen 325 mg tablet RxNorm: 633320 Tablet(s) PO TAKE ONE TO TWO TABLETS BY MOUTH EVERY 6 HOURS NEEDED FOR PAIN 03/06/2018 03/20/2018 Inactive trazodone 50 mg tablet RxNorm: 703998 TAKE ONE AND ONE-HALF (1 1/2) TABLET BY MOUTH AT BEDTIME. MAY INCREASE TO 2 TABLETS AT BEDTIME NEEDED 02/23/2018 06/12/2018 Inactive mupirocin 2 % topical ointment RxNorm: 785710 1 TOP BID 02/09/2018 05/27/2018 Inactive Zofran 4 mg tablet RxNorm: 534312 1 Tablet(s) PO TID as needed 02/08/2018 No Stop Date Active Keflex 500 mg capsule RxNorm: 802078 1 Capsule(s) PO TID 02/07/2018 02/13/2018 Inactive alprazolam 0.25 mg tablet RxNorm: 323346 1 Tablet(s) PO daily as needed 01/24/2018 07/09/2018 Inactive hydrocodone 10 mg-acetaminophen 325 mg tablet RxNorm: 460483 Tablet(s) PO TAKE ONE TO TWO TABLETS BY MOUTH EVERY 6 HOURS NEEDED FOR PAIN 01/19/2018 02/02/2018 Inactive hydrochlorothiazide 25 mg tablet RxNorm: 318923 Tablet(s) TAKE ONE TABLET BY MOUTH DAILY 01/19/2018 01/19/2018 Inactive Kenalog 40 mg/mL suspension for injection RxNorm: 2152789 1 Milliliter(s) Inj 01/19/2018 01/19/2018 Inactive piroxicam 20 mg capsule RxNorm: 884271 1 Capsule(s) PO daily 01/19/2018 07/17/2018 Inactive D/C ORDER FOR HCTZ ceftriaxone 500 mg solution for injection RxNorm: 7333068 500 Milligram(s) Inj 01/19/2018 01/19/2018 Inactive Nexium 40 mg capsule,delayed release RxNorm: 354986 TAKE ONE CAPSULE BY MOUTH TWICE A DAY 01/18/2018 04/17/2018 Inactive Nexium 40 mg capsule,delayed release RxNorm: 203030 TAKE ONE CAPSULE BY MOUTH TWICE A DAY 01/15/2018 04/14/2018 Inactive ciprofloxacin 0.3 % eye drops RxNorm: 358736 2 Drop(s) ophthalmic (eye) Q2H while awake x 2 days, then Q4H x 5 days 11/23/2017 05/27/2018 Inactive Keflex 500 mg capsule RxNorm: 737218 1 Capsule(s) PO TID 11/23/2017 11/29/2017 Inactive hydrocodone 10 mg-acetaminophen 325 mg tablet RxNorm: 721856 Tablet(s) PO TAKE ONE TO TWO TABLETS BY MOUTH EVERY 6 HOURS NEEDED FOR PAIN 10/30/2017 11/13/2017 Inactive Augmentin 500 mg-125 mg tablet RxNorm: 550811 1 Tablet(s) PO TID 10/27/2017 11/05/2017 Inactive alprazolam 0.25 mg tablet RxNorm: 854786 1 Tablet(s) PO daily as needed 10/26/2017 04/24/2018 Inactive trazodone 50 mg tablet RxNorm: 316310 TAKE ONE AND ONE-HALF (1 1/2) TABLET BY MOUTH AT BEDTIME. MAY INCREASE TO 2 TABLETS AT BEDTIME NEEDED 09/25/2017 02/03/2018 Inactive Lexapro 20 mg tablet RxNorm: 798301 TAKE ONE AND ONE-HALF TABLET BY MOUTH DAILY 09/15/2017 09/09/2018 Inactive Flagyl 500 mg tablet RxNorm: 541423 1 Tablet(s) PO TID 09/12/2017 09/21/2017 Inactive promethazine 25 mg tablet RxNorm: 628063 1 Tablet(s) PO TID as needed nausea and vomitting THIS WILL MAKE YOU SLEEPY 09/12/2017 11/08/2017 Inactive Keflex 500 mg capsule RxNorm: 515725 1 Capsule(s) PO QID 08/25/2017 08/31/2017 Inactive [SAVINGS FOR UNINSURED PATIENTS -- BIN:[id number], PCN: [id number], Group: [facility], ID# [id number], Process claim through [employer], for questions: . THIS IS NOT INSURANCE.] alprazolam 0.25 mg tablet RxNorm: 993921 1 Tablet(s) PO daily as needed 07/31/2017 04/24/2018 Inactive prednisone 20 mg tablet RxNorm: 733377 2 Tablet(s) PO daily 07/25/2017 07/29/2017 Inactive Augmentin 500 mg-125 mg tablet RxNorm: 475676 1 Tablet(s) PO TID 07/25/2017 08/03/2017 Inactive trazodone 50 mg tablet RxNorm: 904428 TAKE ONE AND ONE-HALF (1 1/2) TABLET BY MOUTH AT BEDTIME. MAY INCREASE TO 2 TABLETS AT BEDTIME NEEDED 06/30/2017 09/03/2017 Inactive Bystolic 10 mg tablet RxNorm: 259268 TAKE ONE TABLET BY MOUTH DAILY 06/30/2017 2017 Inactive hydrochlorothiazide 25 mg tablet RxNorm: 082988 TAKE ONE TABLET BY MOUTH DAILY 06/30/2017 01/18/2018 Inactive Flagyl 500 mg tablet RxNorm: 506196 1 Tablet(s) PO TID 06/27/2017 07/03/2017 Inactive Phenergan with Codeine Syrup RxNorm: 5-10 Milliliter(s) PO Q6 PRN 06/27/2017 11/15/2017 Inactive Levaquin 500 mg tablet RxNorm: 638470 1 Tablet(s) PO daily 06/27/2017 07/03/2017 Inactive Kenalog 40 mg/mL suspension for injection RxNorm: 0045430 1 Milliliter(s) Inj 06/27/2017 06/27/2017 Inactive Nexium 40 mg capsule,delayed release RxNorm: 330621 1 Capsule(s) PO BID TAKE ONE CAPSULE BY MOUTH BID 05/22/2017 09/18/2017 Inactive Nexium 40 mg capsule,delayed release RxNorm: 041547 1 Capsule(s) PO BID TAKE ONE CAPSULE BY MOUTH BID 05/22/2017 05/21/2017 Inactive hydrocodone 10 mg-acetaminophen 325 mg tablet RxNorm: 413807 Tablet(s) PO TAKE ONE TO TWO TABLETS BY MOUTH EVERY 6 HOURS NEEDED FOR PAIN 05/17/2017 06/15/2017 Inactive Nexium 40 mg capsule,delayed release RxNorm: 020890 Capsule(s) TAKE ONE CAPSULE BY MOUTH BID 05/17/2017 05/21/2017 Inactive alprazolam 0.25 mg tablet RxNorm: 684287 1 Tablet(s) PO daily as needed 05/03/2017 07/01/2017 Inactive Levaquin 500 mg tablet RxNorm: 590637 1 Tablet(s) PO daily 04/20/2017 04/26/2017 Inactive clotrimazole 1 % topical cream RxNorm: 968895 1 Application TOP BID 04/20/2017 11/07/2017 Inactive Kenalog 40 mg/mL suspension for injection RxNorm: 9164140 Milliliter(s) Inj 04/20/2017 04/20/2017 Inactive nystatin 100,000 unit/gram topical powder RxNorm: 405153 1 Gram(s) APPLY TOPICALLY TWO TIMES A DAY 04/10/2017 07/08/2017 Inactive trazodone 50 mg tablet RxNorm: 095210 TAKE ONE AND ONE-HALF (1 1/2) TABLET BY MOUTH AT BEDTIME. MAY INCREASE TO 2 TABLETS AT BEDTIME NEEDED 03/28/2017 06/23/2017 Inactive Augmentin 875 mg-125 mg tablet RxNorm: 088844 1 Tablet(s) PO BID 03/14/2017 03/20/2017 Inactive Kenalog 40 mg/mL suspension for injection RxNorm: 1390201 1 Milliliter(s) Inj 03/14/2017 03/14/2017 Inactive Lexapro 20 mg tablet RxNorm: 296068 1.5 Tablet(s) PO daily 03/08/2017 03/07/2017 Inactive Lexapro 20 mg tablet RxNorm: 161798 1.5 Tablet(s) PO daily 03/08/2017 07/05/2017 Inactive alprazolam 0.25 mg tablet RxNorm: 067987 1 Tablet(s) PO daily as needed 02/23/2017 04/23/2017 Inactive (Response to an electronic controlled substance refill request - RxReferenceNumber: [id number]) Flagyl 500 mg tablet RxNorm: 992646 1 Tablet(s) PO TID 02/20/2017 03/01/2017 Inactive promethazine 25 mg tablet RxNorm: 686564 1 Tablet(s) PO TID as needed nausea 02/20/2017 03/01/2017 Inactive Cipro 500 mg tablet RxNorm: 416610 1 Tablet(s) PO BID 02/20/2017 03/01/2017 Inactive Flagyl 500 mg tablet RxNorm: 312543 1 Tablet(s) PO TID 02/09/2017 02/15/2017 Inactive Trintellix 10 mg tablet RxNorm: 9588372 1 Tablet(s) PO QAM 02/06/2017 03/07/2017 Inactive Efudex 5 % topical cream RxNorm: 819391 1 Application TOP BID use on skin spot on nose 02/06/2017 02/15/2017 Inactive Bystolic 10 mg tablet RxNorm: 233316 TAKE ONE TABLET BY MOUTH DAILY 02/03/2017 06/02/2017 Inactive Imitrex 50 mg tablet RxNorm: 975522 TAKE ONE TABLET BY MOUTH EVERY 8 HOURS NEEDED MAY REPEAT IN 1 HOUR OF INITIAL DOSE. DISCONTINUE FIORICET 12/22/2016 02/19/2017 Inactive Nexium 40 mg capsule,delayed release RxNorm: 347396 TAKE ONE CAPSULE BY MOUTH EVERY DAY 12/21/2016 05/16/2017 Inactive Lexapro 20 mg tablet RxNorm: 842945 Tablet(s) TAKE ONE TABLET BY MOUTH DAILY 12/05/2016 02/05/2017 Inactive Augmentin 875 mg-125 mg tablet RxNorm: 700508 1 Tablet(s) PO BID 11/28/2016 12/04/2016 Inactive ceftriaxone 500 mg solution for injection RxNorm: 7930541 1 Milliliter(s) Inj 11/28/2016 11/28/2016 Inactive hydrocodone 10 mg-acetaminophen 325 mg tablet RxNorm: 470616 Tablet(s) PO TAKE ONE TO TWO TABLETS BY MOUTH EVERY 6 HOURS NEEDED FOR PAIN 11/28/2016 05/16/2017 Inactive (Appended: Controlled substance eRx refill - RxReferenceNumber: [id number]) prednisone 20 mg tablet RxNorm: 774937 2 Tablet(s) PO daily 11/28/2016 12/02/2016 Inactive Synthroid 100 mcg tablet RxNorm: 459767 1 Tablet(s) PO daily 11/21/2016 05/19/2017 Inactive Brand name only! trazodone 50 mg tablet RxNorm: 500943 Tablet(s) TAKE 1 AND 1/2 TABLETS EVERY NIGHT AT BEDTIME , MAY INCREASE TO 2 TABLETS AT BEDTIME NEEDED 11/21/2016 11/20/2016 Inactive trazodone 50 mg tablet RxNorm: 430722 TAKE 1 AND 1/2 TABLETS EVERY NIGHT AT BEDTIME , MAY INCREASE TO 2 TABLETS AT BEDTIME NEEDED 11/21/2016 08/01/2018 Inactive Synthroid 100 mcg tablet RxNorm: 243576 1 Tablet(s) PO daily TAKE ONE TABLET BY MOUTH DAILY 11/08/2016 11/20/2016 Inactive ceftriaxone 500 mg solution for injection RxNorm: 6823782 Inj 11/07/2016 11/07/2016 Inactive Kenalog 40 mg/mL suspension for injection RxNorm: 6666286 Milliliter(s) Inj 11/07/2016 11/07/2016 Inactive Xanax 0.25 mg tablet RxNorm: 919553 1 Tablet(s) PO daily as needed 10/31/2016 05/02/2017 Inactive alprazolam 0.25 mg tablet RxNorm: 809507 1 Tablet(s) PO daily as needed 10/21/2016 12/18/2016 Inactive (Response to an electronic controlled substance refill request - RxReferenceNumber: [id number]) hydrochlorothiazide 25 mg tablet RxNorm: 010688 TAKE ONE TABLET BY MOUTH DAILY 10/11/2016 04/08/2017 Inactive Xanax 0.25 mg tablet RxNorm: 269497 1 Tablet(s) PO daily as needed 08/23/2016 10/19/2016 Inactive Flonase Allergy Relief 50 mcg/actuation nasal spray,suspension RxNorm: 2455970 1 [place] NASAL daily 08/15/2016 No Stop Date Active amoxicillin 500 mg capsule RxNorm: 572834 1 Capsule(s) PO TID 08/15/2016 08/24/2016 Inactive Bystolic 10 mg tablet RxNorm: 128762 TAKE ONE TABLET BY MOUTH DAILY 08/01/2016 12/28/2016 Inactive trazodone 50 mg tablet RxNorm: 221104 TAKE 1 AND 1/2 TABLETS EVERY NIGHT AT BEDTIME , MAY INCREASE TO 2 TABLETS AT BEDTIME NEEDED 07/25/2016 11/11/2016 Inactive alprazolam 0.25 mg tablet RxNorm: 126472 1 Tablet(s) PO daily as needed 07/25/2016 08/22/2016 Inactive (Response to an electronic controlled substance refill request - RxReferenceNumber: [id number]) Imitrex 50 mg tablet RxNorm: 365383 1 Tablet(s) PO Q8 as needed may repeat x1 dose in 1 hour of inital dose. 07/13/2016 No Stop Date Active Lexapro 20 mg tablet RxNorm: 843957 TAKE 1/2 TABLET BY MOUTH DAILY FOR 10 DAYS, THEN TAKE ONE TABLET BY MOUTH DAILY 06/27/2016 11/23/2016 Inactive Synthroid 100 mcg tablet RxNorm: 621751 TAKE ONE TABLET BY MOUTH DAILY 06/20/2016 11/07/2016 Inactive Augmentin 500 mg-125 mg tablet RxNorm: 329601 1 Tablet(s) PO TID 06/07/2016 06/13/2016 Inactive hydrocodone 10 mg-acetaminophen 325 mg tablet RxNorm: 539952 Tablet(s) PO TAKE ONE TO TWO TABLETS BY MOUTH EVERY 6 HOURS NEEDED FOR PAIN 06/07/2016 11/27/2016 Inactive (Appended: Controlled substance eRx refill - RxReferenceNumber: [id number]) hydrochlorothiazide 25 mg tablet RxNorm: 108030 TAKE ONE TABLET BY MOUTH DAILY 03/14/2016 09/09/2016 Inactive Edarbi 40 mg tablet RxNorm: 7191059 1 Tablet(s) PO daily 03/14/2016 06/06/2016 Inactive trazodone 50 mg tablet RxNorm: 564659 Tablet(s) TAKE 1 AND 1/2 TABLET AT BEDTIME. MAY INCREASE TO 2 TABLETS IF NECESSARY 02/25/2016 07/05/2016 Inactive Imitrex 50 mg tablet RxNorm: 358579 1 Tablet(s) PO Q8 as needed may repeat x1 dose in 1 hour of inital dose. 02/25/2016 07/12/2016 Inactive dc fioricet Xanax 0.25 mg tablet RxNorm: 694020 1 Tablet(s) PO daily as needed 02/24/2016 07/21/2016 Inactive mupirocin 2 % topical ointment RxNorm: 330187 1 TOP BID 02/22/2016 11/08/2017 Inactive Bactrim DS 800 mg-160 mg tablet RxNorm: 275566 1 Tablet(s) PO BID 02/22/2016 03/02/2016 Inactive Fioricet 50 mg-325 mg-40 mg tablet RxNorm: 695221 Tablet(s) TAKE ONE TABLET BY MOUTH EVERY 4 HOURS NEEDED FOR headache 02/12/2016 02/24/2016 Inactive (Response to an electronic controlled substance refill request - RxReferenceNumber: [id number]) Fioricet 50 mg-325 mg-40 mg tablet RxNorm: 715362 Tablet(s) TAKE ONE TABLET BY MOUTH EVERY 4 HOURS NEEDED FOR headache 02/12/2016 02/11/2016 Inactive (Response to an electronic controlled substance refill request - RxReferenceNumber: [id number]) Nexium 40 mg capsule,delayed release RxNorm: 832986 TAKE ONE CAPSULE BY MOUTH EVERY DAY 02/01/2016 10/27/2016 Inactive Bystolic 10 mg tablet RxNorm: 747804 Tablet(s) TAKE ONE TABLET BY MOUTH DAILY 01/06/2016 07/03/2016 Inactive Xanax 0.25 mg tablet RxNorm: 942360 1 Tablet(s) PO daily as needed 12/28/2015 02/23/2016 Inactive Levaquin 500 mg tablet RxNorm: 614728 1 Tablet(s) PO daily take a probiotic daily 12/14/2015 02/11/2016 Inactive Levaquin 500 mg tablet RxNorm: 631474 1 Tablet(s) PO daily take a probiotic daily 12/14/2015 12/13/2015 Inactive prednisone 20 mg tablet RxNorm: 323848 1 Tablet(s) PO BID 12/07/2015 12/13/2015 Inactive Augmentin 875 mg-125 mg tablet RxNorm: 760016 1 Tablet(s) PO BID 12/07/2015 12/13/2015 Inactive ceftriaxone 500 mg solution for injection RxNorm: 6840547 Inj 12/07/2015 12/07/2015 Inactive Phenergan with Codeine Syrup RxNorm: 5-10 Milliliter(s) PO Q6 PRN 12/07/2015 06/26/2017 Inactive alprazolam 0.25 mg tablet RxNorm: 091162 1 Tablet(s) PO daily as needed 11/27/2015 12/25/2015 Inactive (Response to an electronic controlled substance refill request - RxReferenceNumber: [id number]) trazodone 50 mg tablet RxNorm: 439920 TAKE 1 AND 1/2 TABLET AT BEDTIME FOR 2 WEEKS, MAY INCREASE TO 2 TABLETS IF NECESSARY AFTER THAT 11/26/2015 02/24/2016 Inactive ceftriaxone 500 mg solution for injection RxNorm: 0072887 Milliliter(s) Inj 11/24/2015 11/24/2015 Inactive prednisone 10 mg tablet RxNorm: 829304 3 Tablet(s) PO daily 11/24/2015 11/28/2015 Inactive cefdinir 300 mg capsule RxNorm: 902007 1 Capsule(s) PO BID 11/24/2015 11/30/2015 Inactive Kenalog 40 mg/mL suspension for injection RxNorm: 2697578 1 Milliliter(s) Inj 11/24/2015 11/24/2015 Inactive Lexapro 20 mg tablet RxNorm: 823804 TAKE 1/2 TABLET BY MOUTH DAILY FOR 10 DAYS, THEN TAKE ONE TABLET BY MOUTH DAILY 11/23/2015 05/20/2016 Inactive Lipitor 10 mg tablet RxNorm: 902574 Tablet(s) TAKE ONE TABLET BY MOUTH EVERY DAY 10/26/2015 11/06/2016 Inactive Norvasc 10 mg tablet RxNorm: 606534 Tablet(s) PO TAKE ONE TABLET BY MOUTH EVERY DAY 10/26/2015 01/18/2018 Inactive hydrochlorothiazide 25 mg tablet RxNorm: 058282 TAKE ONE TABLET BY MOUTH DAILY 10/20/2015 01/17/2016 Inactive promethazine 25 mg/mL injection solution RxNorm: 350876 Milliliter(s) Inj 08/27/2015 08/27/2015 Inactive ketorolac 60 mg/2 mL intramuscular solution RxNorm: 492287 Milliliter(s) IM 08/27/2015 08/27/2015 Inactive alprazolam 0.25 mg tablet RxNorm: 031589 1 Tablet(s) PO daily as needed 08/27/2015 10/25/2017 Inactive (Response to an electronic controlled substance refill request - RxReferenceNumber: [id number]) Lexapro 20 mg tablet RxNorm: 201512 TAKE 1/2 TABLET BY MOUTH DAILY FOR 10 DAYS, THEN TAKE ONE TABLET BY MOUTH DAILY 08/13/2015 11/10/2015 Inactive Flonase 50 mcg/actuation nasal spray,suspension RxNorm: 087930 PLACE 1 SPRAY IN EACH NOSTRIL DAILY 08/13/2015 02/08/2016 Inactive Augmentin 500 mg-125 mg tablet RxNorm: 362849 1 Tablet(s) PO TID 08/10/2015 08/16/2015 Inactive Kenalog 40 mg/mL suspension for injection RxNorm: 0366044 Milliliter(s) Inj 08/10/2015 08/10/2015 Inactive ceftriaxone 500 mg solution for injection RxNorm: 6189239 Inj 08/10/2015 08/10/2015 Inactive nystatin 100,000 unit/mL oral suspension RxNorm: 876293 4 Milliliter(s) PO QID 08/10/2015 08/16/2015 Inactive trazodone 50 mg tablet RxNorm: 700988 TAKE 1 AND 1/2 TABLET AT BEDTIME FOR 2 WEEKS, MAY INCREASE TO 2 TABLETS IF NECESSARY AFTER THAT 07/31/2015 11/25/2015 Inactive ceftriaxone 500 mg solution for injection RxNorm: 3620375 1 Milliliter(s) Inj 07/28/2015 07/28/2015 Inactive Bactrim DS 800 mg-160 mg tablet RxNorm: 338875 1 Tablet(s) PO BID 07/28/2015 08/06/2015 Inactive Bactroban 2 % topical ointment RxNorm: 615403 1 Application TOP BID 07/28/2015 08/06/2015 Inactive Diflucan 150 mg tablet RxNorm: 845568 1 Tablet(s) PO daily 06/11/2015 06/17/2015 Inactive clotrimazole 1 % topical cream RxNorm: 285558 1 Application TOP BID 06/11/2015 07/10/2015 Inactive Bystolic 10 mg tablet RxNorm: 569131 TAKE ONE TABLET BY MOUTH DAILY 06/08/2015 12/04/2015 Inactive alprazolam 0.25 mg tablet RxNorm: 339446 1 Tablet(s) PO daily as needed 06/01/2015 08/25/2015 Inactive (Response to an electronic controlled substance refill request - RxReferenceNumber: [id number]) Fioricet 50 mg-325 mg-40 mg tablet RxNorm: 504459 Tablet(s) TAKE ONE TABLET BY MOUTH EVERY 4 HOURS NEEDED FOR headache 05/28/2015 06/08/2015 Inactive (Response to an electronic controlled substance refill request - RxReferenceNumber: [id number]) trazodone 50 mg tablet RxNorm: 951691 TAKE 1 AND 1/2 TABLET AT BEDTIME FOR 2 WEEKS, MAY INCREASE TO 2 TABLETS IF NECESSARY AFTER THAT 05/25/2015 08/22/2015 Inactive trazodone 50 mg tablet RxNorm: 145196 TAKE 1 AND 1/2 TABLET AT BEDTIME FOR 2 WEEKS, MAY INCREASE TO 2 TABLETS IF NECESSARY AFTER THAT 05/25/2015 05/24/2015 Inactive Synthroid 100 mcg tablet RxNorm: 978173 TAKE ONE TABLET BY MOUTH DAILY 04/23/2015 01/17/2016 Inactive Lipitor 10 mg tablet RxNorm: 607366 TAKE ONE TABLET BY MOUTH EVERY DAY 04/23/2015 10/25/2015 Inactive Kenalog 40 mg/mL suspension for injection RxNorm: 3569413 Milliliter(s) Inj 03/19/2015 03/19/2015 Inactive Lexapro 20 mg tablet RxNorm: 324358 1 Tablet(s) PO daily 03/19/2015 07/16/2015 Inactive 1/2 tab daily x 10 days then 1 tab daily hydrocodone 10 mg-acetaminophen 325 mg tablet RxNorm: 466566 Tablet(s) PO TAKE ONE TO TWO TABLETS BY MOUTH EVERY 6 HOURS NEEDED FOR PAIN 03/19/2015 06/06/2016 Inactive (Appended: Controlled substance eRx refill - RxReferenceNumber: [id number]) Carafate 1 gram tablet RxNorm: 020486 1 Tablet(s) PO AC & HS 03/19/2015 06/16/2015 Inactive dissolve in water and take as a slurry hydrochlorothiazide 25 mg tablet RxNorm: 254519 1 Tablet(s) PO daily 03/12/2015 09/07/2015 Inactive Nexium 40 mg capsule,delayed release RxNorm: 979410 TAKE ONE CAPSULE BY MOUTH EVERY DAY 02/26/2015 12/22/2015 Inactive Cymbalta 60 mg capsule,delayed release RxNorm: 798182 TAKE ONE CAPSULE BY MOUTH TWICE A DAY 02/23/2015 03/18/2015 Inactive alprazolam 0.25 mg tablet RxNorm: 726738 1 Tablet(s) PO daily as needed 02/11/2015 05/10/2015 Inactive (Response to an electronic controlled substance refill request - RxReferenceNumber: [id number]) trazodone 50 mg tablet RxNorm: 705315 TAKE 1 AND 1/2 TABLET AT BEDTIME FOR 2 WEEKS, MAY INCREASE TO 2 TABLETS IF NECESSARY AFTER THAT 01/27/2015 05/24/2015 Inactive Augmentin 500 mg-125 mg tablet RxNorm: 243493 1 Tablet(s) PO TID 01/07/2015 01/13/2015 Inactive gentamicin 0.3 % eye drops RxNorm: 201864 3 Drop(s) OPH QID 01/07/2015 01/13/2015 Inactive [AttnRPh: Saving apply/adjudicate RxGRP:[id number] RxBIN:[id number] RxPCN: ID#:[id number]] scopolamine 1.5 mg transdermal 72 hour patch RxNorm: 637212 1 Patch TD q72 hours 01/07/2015 11/23/2015 Inactive Synthroid 100 mcg tablet RxNorm: 476339 TAKE ONE TABLET BY MOUTH ONCE A DAY 01/06/2015 04/22/2015 Inactive nystatin 100,000 unit/gram topical powder RxNorm: 215733 APPLY TOPICALLY TWO TIMES A DAY 12/18/2014 03/17/2015 Inactive alprazolam 0.25 mg tablet RxNorm: 376211 TAKE ONE TABLET BY MOUTH DAILY NEEDED 10/30/2014 11/28/2014 Inactive (Response to an electronic controlled substance refill request - RxReferenceNumber: [id number]) alprazolam 0.25 mg tablet RxNorm: 011677 Tablet(s) TAKE ONE TABLET BY MOUTH DAILY 10/30/2014 10/29/2014 Inactive (Response to an electronic controlled substance refill request - RxReferenceNumber: [id number]) Lipitor 10 mg tablet RxNorm: 283854 TAKE ONE TABLET BY MOUTH EVERY DAY 10/30/2014 02/26/2015 Inactive alprazolam 0.25 mg tablet RxNorm: 650083 TAKE ONE TABLET BY MOUTH DAILY 10/07/2014 10/29/2014 Inactive (Response to an electronic controlled substance refill request - RxReferenceNumber: [id number]) alprazolam 0.25 mg tablet RxNorm: 727729 TAKE ONE TABLET BY MOUTH DAILY 10/06/2014 10/07/2014 Inactive (Response to an electronic controlled substance refill request - RxReferenceNumber: [id number]) alprazolam 0.25 mg tablet RxNorm: 661465 Tablet(s) TAKE ONE TABLET BY MOUTH EVERY DAY NEEDED 09/30/2014 10/06/2014 Inactive (Response to an electronic controlled substance refill request - RxReferenceNumber: [id number]) Fioricet 50 mg-325 mg-40 mg tablet RxNorm: 767920 Tablet(s) TAKE ONE TABLET BY MOUTH EVERY 4 HOURS NEEDED FOR headache 09/29/2014 10/12/2014 Inactive (Response to an electronic controlled substance refill request - RxReferenceNumber: [id number]) Bystolic 10 mg tablet RxNorm: 823857 1 Tablet(s) PO daily TAKE ONE TABLET BY MOUTH EVERY DAY 09/29/2014 04/26/2015 Inactive Bystolic 5 mg tablet RxNorm: 873106 TAKE 1 AND 1/2 TABLETS ONCE DAILY 09/24/2014 09/23/2014 Inactive Bystolic 5 mg tablet RxNorm: 227943 Tablet(s) TAKE 1 AND 1/2 TABLETS ONCE DAILY 09/24/2014 09/18/2015 Inactive gentamicin 0.3 % eye drops RxNorm: 086466 3 Drop(s) OPH QID 09/23/2014 09/29/2014 Inactive trazodone 50 mg tablet RxNorm: 689943 TAKE 1 AND 1/2 TABLET AT BEDTIME FOR 2 WEEKS, MAY INCREASE TO 2 TABLETS IF NECESSARY AFTER THAT 09/22/2014 01/26/2015 Inactive Fioricet 50 mg-325 mg-40 mg tablet RxNorm: 277706 TAKE ONE TABLET BY MOUTH EVERY 4 HOURS NEEDED FOR PAIN 09/17/2014 09/28/2014 Inactive (Response to an electronic controlled substance refill request - RxReferenceNumber: [id number]) Duragesic 50 mcg/hr transdermal patch RxNorm: 190590 1 TD q72 hours 08/07/2014 01/06/2015 Inactive [SAVINGS FOR UNINSURED PATIENTS -- BIN:[id number], PCN: ASPROD1, Group: [id number], ID# [id number], Process claim through MedImpact, for questions: . THIS IS NOT INSURANCE.] alprazolam 0.25 mg tablet RxNorm: 495078 TAKE ONE TABLET BY MOUTH EVERY DAY NEEDED 07/31/2014 08/29/2014 Inactive (Response to an electronic controlled substance refill request - RxReferenceNumber: [id number]) alprazolam 0.25 mg tablet RxNorm: 567560 1 Tablet(s) PO daily as needed TAKE ONE TABLET BY MOUTH EVERY DAY NEEDED 07/30/2014 08/01/2014 Inactive (Response to an electronic controlled substance refill request - RxReferenceNumber: [id number]) Diflucan 150 mg tablet RxNorm: 072011 1 Tablet(s) PO daily 06/25/2014 07/01/2014 Inactive [SAVINGS FOR UNINSURED PATIENTS -- BIN:[id number], PCN: ASPROD1, Group: [id number], ID# [id number], Process claim through MedImpact, for questions: . THIS IS NOT INSURANCE.] Kenalog 40 mg/mL suspension for injection RxNorm: 6734789 Milliliter(s) Inj 06/23/2014 06/23/2014 Inactive [SAVINGS FOR UNINSURED PATIENTS -- BIN:509729, PCN: ASPROD1, Group: [id number], ID# [id number], Process claim through MedImpact, for questions: . THIS IS NOT INSURANCE.] ceftriaxone 500 mg solution for injection RxNorm: 997443 Inj 06/23/2014 06/23/2014 Inactive [SAVINGS FOR UNINSURED PATIENTS -- BIN:879416, PCN: ASPROD1, Group: [id number], ID# [id number], Process claim through MedImpact, for questions: . THIS IS NOT INSURANCE.] Levaquin 500 mg tablet RxNorm: 828691 1 Tablet(s) PO daily 06/23/2014 07/13/2014 Inactive [SAVINGS FOR UNINSURED PATIENTS -- BIN:780957, PCN: ASPROD1, Group: [id number], ID# [id number], Process claim through MedImpact, for questions: . THIS IS NOT INSURANCE.] Duragesic 50 mcg/hr transdermal patch RxNorm: 794667 1 TD q72 hours 06/05/2014 08/06/2014 Inactive [SAVINGS FOR UNINSURED PATIENTS -- BIN:246575, PCN: ASPROD1, Group: [id number], ID# [id number], Process claim through MedImpact, for questions: . THIS IS NOT INSURANCE.] alprazolam 0.25 mg tablet RxNorm: 270392 1 Tablet(s) PO daily as needed TAKE ONE TABLET BY MOUTH EVERY DAY NEEDED 06/02/2014 07/29/2014 Inactive (Response to an electronic controlled substance refill request - RxReferenceNumber: [id number]) nystatin 100,000 unit/gram topical powder RxNorm: 228304 APPLY TO AFFECTED AREA(S) TWO TIMES A DAY 05/01/2014 06/14/2014 Inactive hydrochlorothiazide 25 mg tablet RxNorm: 466384 TAKE ONE TABLET BY MOUTH EVERY DAY MUST CALL MD FOR APPOINTMENT 04/24/2014 10/20/2014 Inactive alprazolam 0.25 mg tablet RxNorm: 059855 Tablet(s) TAKE ONE TABLET BY MOUTH EVERY DAY NEEDED 04/16/2014 06/02/2014 Inactive (Response to an electronic controlled substance refill request - RxReferenceNumber: [id number]) alprazolam 0.25 mg tablet RxNorm: 874119 TAKE ONE TABLET BY MOUTH EVERY DAY NEEDED 04/16/2014 05/15/2014 Inactive (Response to an electronic controlled substance refill request - RxReferenceNumber: [id number]) alprazolam 0.25 mg tablet RxNorm: 412080 TAKE ONE TABLET BY MOUTH EVERY DAY NEEDED 04/16/2014 05/15/2014 Inactive (Response to an electronic controlled substance refill request - RxReferenceNumber: [id number]) alprazolam 0.25 mg tablet RxNorm: 863916 TAKE ONE TABLET BY MOUTH EVERY DAY NEEDED 04/14/2014 04/16/2014 Inactive (Response to an electronic controlled substance refill request - RxReferenceNumber: [id number]) Lipitor 10 mg tablet RxNorm: 155641 TAKE ONE TABLET BY MOUTH EVERY DAY 04/14/2014 09/10/2014 Inactive alprazolam 0.25 mg tablet RxNorm: 458847 TAKE ONE TABLET BY MOUTH EVERY DAY NEEDED 04/14/2014 04/14/2014 Inactive (Response to an electronic controlled substance refill request - RxReferenceNumber: [id number]) alprazolam 0.25 mg tablet RxNorm: 214111 TAKE ONE TABLET BY MOUTH EVERY DAY NEEDED 04/14/2014 04/15/2014 Inactive (Response to an electronic controlled substance refill request - RxReferenceNumber: [id number]) alprazolam 0.25 mg tablet RxNorm: 583081 TAKE ONE TABLET BY MOUTH EVERY DAY NEEDED 04/14/2014 04/14/2014 Inactive (Response to an electronic controlled substance refill request - RxReferenceNumber: [id number]) nystatin 100,000 unit/gram topical powder RxNorm: 530812 1 Application TOP BID 04/03/2014 07/01/2014 Inactive [SAVINGS FOR UNINSURED PATIENTS -- BIN:152217, PCN: ASPROD1, Group: [id number], ID# [id number], Process claim through CloudPrime, for questions: . THIS IS NOT INSURANCE.] Keflex 500 mg capsule RxNorm: 772485 1 Capsule(s) PO QID 04/03/2014 04/09/2014 Inactive [SAVINGS FOR UNINSURED PATIENTS -- BIN:497307, PCN: ASPROD1, Group: [id number], ID# [id number], Process claim through MedImpact, for questions: . THIS IS NOT INSURANCE.] Synthroid 100 mcg tablet RxNorm: 971258 1 Tablet(s) PO daily TAKE ONE TABLET BY MOUTH EVERY DAY 04/01/2014 01/05/2015 Inactive [SAVINGS FOR UNINSURED PATIENTS -- BIN:180810, PCN: ASPROD1, Group: [id number], ID# [id number], Process claim through MedImpact, for questions: . THIS IS NOT INSURANCE.] Duragesic 50 mcg/hr transdermal patch RxNorm: 484992 1 TD q72 hours 03/24/2014 06/04/2014 Inactive [SAVINGS FOR UNINSURED PATIENTS -- BIN:083829, PCN: ASPROD1, Group: [id number], ID# [id number], Process claim through MedImpact, for questions: . THIS IS NOT INSURANCE.] trazodone 50 mg tablet RxNorm: 679941 TAKE 1 AND 1/2 TABLET AT BEDTIME FOR 2 WEEKS, MAY INCREASE TO 2 TABLETS IF NECESSARY AFTER THAT 03/18/2014 09/13/2014 Inactive nystatin 100,000 unit/gram topical powder RxNorm: 027026 1 Application TOP BID 03/07/2014 03/16/2014 Inactive [SAVINGS FOR UNINSURED PATIENTS -- BIN:833025, PCN: ASPROD1, Group: [id number], ID# [id number], Process claim through MedIOrCam [employer]act, for questions: . THIS IS NOT INSURANCE.] permethrin 5 % topical cream RxNorm: 391240 1 Application TOP daily 03/07/2014 11/23/2015 Inactive apply head to toe-leave on overnight and wash off in the a.m. May repeat x 1 if needed Diflucan 150 mg tablet RxNorm: 528753 1 Tablet(s) PO daily 03/07/2014 03/09/2014 Inactive [SAVINGS FOR UNINSURED PATIENTS -- BIN:960524, PCN: ASPROD1, Group: [id number], ID# [id number], Process claim through Med[employer]overWind, for questions: . THIS IS NOT INSURANCE.] hydrochlorothiazide 25 mg tablet RxNorm: 197114 TAKE ONE TABLET BY MOUTH EVERY DAY MUST CALL MD FOR APPOINTMENT 03/06/2014 04/23/2014 Inactive Zithromax Z-Sergio 250 mg tablet RxNorm: 581523 Tablet(s) PO as directed 03/04/2014 11/23/2015 Inactive [SAVINGS FOR UNINSURED PATIENTS -- BIN:019993, PCN: ASPROD1, Group: [id number], ID# [id number], Process claim through MedImpact, for questions: . THIS IS NOT INSURANCE.] Flonase 50 mcg/actuation nasal spray,suspension RxNorm: 056312 1 [place] NASAL daily 03/04/2014 07/01/2014 Inactive [SAVINGS FOR UNINSURED PATIENTS -- BIN:270145, PCN: ASPROD1, Group: [id number], ID# [id number], Process claim through MedImpact, for questions: . THIS IS NOT INSURANCE.] alprazolam 0.25 mg tablet RxNorm: 755974 1 Tablet(s) PO PRN TAKE ONE TABLET BY MOUTH EVERY DAY NEEDED 02/25/2014 04/14/2014 Inactive (Appended: Controlled substance eRx refill - RxReferenceNumber: [id number]) alprazolam 0.25 mg tablet RxNorm: 961407 TAKE ONE TABLET BY MOUTH EVERY DAY NEEDED 02/21/2014 03/22/2014 Inactive (Response to an electronic controlled substance refill request - RxReferenceNumber: [id number]) alprazolam 0.25 mg tablet RxNorm: 938761 TAKE ONE TABLET BY MOUTH EVERY DAY NEEDED 02/21/2014 03/22/2014 Inactive (Response to an electronic controlled substance refill request - RxReferenceNumber: [id number]) alprazolam 0.25 mg tablet RxNorm: 118052 TAKE ONE TABLET BY MOUTH EVERY DAY NEEDED 02/18/2014 03/19/2014 Inactive (Response to an electronic controlled substance refill request - RxReferenceNumber: [id number]) Cymbalta 60 mg capsule,delayed release RxNorm: 794207 TAKE ONE CAPSULE BY MOUTH TWICE A DAY 02/18/2014 01/13/2015 Inactive Nexium 40 mg capsule,delayed release RxNorm: 595454 TAKE ONE CAPSULE BY MOUTH EVERY DAY 02/18/2014 01/13/2015 Inactive Bactrim DS 800 mg-160 mg tablet RxNorm: 290736 1 Tablet(s) PO BID 02/13/2014 02/19/2014 Inactive probiotic while one antibiotic Bactrim DS 800 mg-160 mg tablet RxNorm: 915637 1 Tablet(s) PO BID 02/13/2014 02/12/2014 Inactive hydrocodone 10 mg-acetaminophen 325 mg tablet RxNorm: 362587 Tablet(s) PO TAKE ONE TO TWO TABLETS BY MOUTH EVERY 6 HOURS NEEDED FOR PAIN 02/06/2014 03/18/2015 Inactive (Appended: Controlled substance eRx refill - RxReferenceNumber: [id number]) Abilify 2 mg tablet RxNorm: 859228 Tablet(s) PO TAKE ONE TABLET BY MOUTH EVERY NIGHT AT BEDTIME 02/03/2014 03/19/2015 Inactive Duragesic 50 mcg/hr transdermal patch RxNorm: 968539 1 TD q72 hours 01/14/2014 03/23/2014 Inactive alprazolam 0.25 mg tablet RxNorm: 642950 1 Tablet(s) PO QDAY PRN 01/14/2014 02/12/2014 Inactive alprazolam 0.25 mg tablet RxNorm: 695702 Tablet(s) PO TAKE ONE TABLET BY MOUTH EVERY DAY NEEDED 01/14/2014 02/24/2014 Inactive (Appended: Controlled substance eRx refill - RxReferenceNumber: [id number]) Lipitor 10 mg tablet RxNorm: 836942 Tablet(s) PO TAKE ONE TABLET BY MOUTH EVERY DAY 01/14/2014 04/13/2014 Inactive Synthroid 100 mcg tablet RxNorm: 983590 Tablet(s) PO TAKE ONE TABLET BY MOUTH EVERY DAY 2013 03/31/2014 Inactive Fioricet 50 mg-325 mg-40 mg tablet RxNorm: 525812 Tablet(s) PO TAKE ONE TABLET BY MOUTH EVERY 4 HOURS NEEDED FOR PAIN 11/27/2013 09/17/2014 Inactive Fioricet 50 mg-325 mg-40 mg tablet RxNorm: 526394 Tablet(s) PO TAKE ONE TABLET BY MOUTH EVERY 4 HOURS NEEDED FOR PAIN 11/25/2013 11/26/2013 Inactive Zithromax Z-Sergio 250 mg tablet RxNorm: 185128 Tablet(s) PO as directed 11/11/2013 01/13/2014 Inactive Bystolic 10 mg tablet RxNorm: 717997 Tablet(s) PO TAKE ONE TABLET BY MOUTH EVERY DAY 10/21/2013 09/28/2014 Inactive Abilify 2 mg tablet RxNorm: 840905 1 Tablet(s) PO QHS 09/25/2013 01/22/2014 Inactive Synthroid 100 mcg tablet RxNorm: 337577 Tablet(s) PO TAKE ONE TABLET BY MOUTH EVERY DAY 09/24/2013 12/25/2013 Inactive Abilify 2 mg tablet RxNorm: 149441 1 Tablet(s) PO QHS 09/24/2013 09/24/2013 Inactive Rocephin 500 mg solution for injection RxNorm: 359943 1ml Milliliter(s) Inj 09/24/2013 09/24/2013 Inactive Rocephin 500 mg solution for injection RxNorm: 923614 1 Milliliter(s) Inj 09/19/2013 09/19/2013 Inactive Bystolic 5 mg tablet RxNorm: 082085 1 1/2 Tablet(s) PO daily 09/17/2013 03/15/2014 Inactive 1 1/2 daily may have 90 day if cheaper Bystolic 5 mg tablet RxNorm: 007747 1 1/2 Tablet(s) PO daily 09/17/2013 09/16/2013 Inactive 1 1/2 daily Lipitor 10 mg tablet RxNorm: 701809 Tablet(s) PO TAKE ONE TABLET BY MOUTH EVERY DAY 09/12/2013 01/13/2014 Inactive hydrocodone 10 mg-acetaminophen 325 mg tablet RxNorm: 129551 Tablet(s) PO TAKE ONE TO TWO TABLETS BY MOUTH EVERY 6 HOURS NEEDED FOR PAIN 09/09/2013 10/29/2017 Inactive (Appended: Controlled substance eRx refill - RxReferenceNumber: [id number]) hydrocodone 10 mg-acetaminophen 325 mg tablet RxNorm: 394332 1 Tablet(s) PO Q6 PRN 09/09/2013 02/06/2014 Inactive hydrocodone 10 mg-acetaminophen 325 mg tablet RxNorm: 950253 Tablet(s) PO TAKE ONE TO TWO TABLETS BY MOUTH EVERY 6 HOURS NEEDED FOR PAIN 09/06/2013 10/29/2017 Inactive (Appended: Controlled substance eRx refill - RxReferenceNumber: [id number]) Norvasc 10 mg tablet RxNorm: 686175 Tablet(s) PO TAKE ONE TABLET BY MOUTH EVERY DAY 09/05/2013 10/25/2015 Inactive trazodone 50 mg tablet RxNorm: 643593 1 1/2 Tablet(s) PO QHS 09/03/2013 03/17/2014 Inactive 75q hs x 2 week may increase to 100mg if nec after that nystatin 100,000 unit/mL oral suspension RxNorm: 381185 6 Milliliter(s) PO QID 08/06/2013 08/15/2013 Inactive Flonase 50 mcg/actuation nasal spray,suspension RxNorm: 569873 2 [place] NASAL daily 08/06/2013 03/03/2014 Inactive nystatin 100,000 unit/mL oral suspension RxNorm: 626115 6 Unit(s) PO QID 08/05/2013 08/05/2013 Inactive Phenergan with Codeine Syrup RxNorm: 5 Milliliter(s) PO Q4 PRN 08/05/2013 12/02/2013 Inactive 8 ounces alprazolam 0.25 mg tablet RxNorm: 952580 1 Tablet(s) PO QDAY PRN 07/29/2013 01/14/2014 Inactive Diflucan 150 mg tablet RxNorm: 685150 1 Tablet(s) PO daily 07/24/2013 07/26/2013 Inactive hydrochlorothiazide 25 mg tablet RxNorm: 368508 Tablet(s) PO TAKE ONE TABLET BY MOUTH EVERY DAY MUST CALL MD FOR APPOINTMENT 07/19/2013 03/05/2014 Inactive Phenergan with Codeine Syrup RxNorm: 10 Milliliter(s) PO Q4 PRN 07/10/2013 08/04/2013 Inactive 8 ounces Rocephin 500 mg solution for injection RxNorm: 837036 1 Inj 07/10/2013 07/10/2013 Inactive cefdinir 300 mg capsule RxNorm: 773877 1 Capsule(s) PO BID 07/10/2013 07/16/2013 Inactive prednisone 10 mg tablet RxNorm: 993635 3 Tablet(s) PO daily 07/10/2013 07/14/2013 Inactive Carafate 100 mg/mL oral suspension RxNorm: 804157 10 Milliliter(s) PO Q6 PRN pt to take carafate 10mL every 6 hours as needed. 07/10/2013 08/05/2014 Inactive Kenalog 40 mg/mL suspension for injection RxNorm: 9910951 1 Milliliter(s) Inj 07/10/2013 07/10/2013 Inactive trazodone 50 mg tablet RxNorm: 820437 1 Tablet(s) PO QHS 07/10/2013 09/02/2013 Inactive sulfamethoxazole 800 mg-trimethoprim 160 mg tablet RxNorm: 639035 1 Tablet(s) PO BID 06/03/2013 06/12/2013 Inactive Synthroid 125 mcg tablet RxNorm: 758966 1 Tablet(s) PO daily 05/07/2013 09/23/2013 Inactive Bystolic 10 mg tablet RxNorm: 437754 1.5 Tablet(s) PO daily 05/07/2013 09/03/2013 Inactive Voltaren 1 % Topical Gel RxNorm: 802144 4 Gram(s) TOP QID apply 4 grams to knees, 2 grams to hands and ankles four times daily. 05/07/2013 09/03/2013 Inactive hydrocodone 10 mg-acetaminophen 325 mg tablet RxNorm: 894197 1 Tablet(s) PO Q6 PRN 04/23/2013 09/09/2013 Inactive Norvasc 10 mg tablet RxNorm: 161607 Tablet(s) PO TAKE ONE TABLET BY MOUTH EVERY DAY 04/23/2013 09/04/2013 Inactive alprazolam 0.25 mg tablet RxNorm: 114500 1 Tablet(s) PO QDAY PRN 03/25/2013 07/22/2013 Inactive Bystolic 10 mg tablet RxNorm: 628124 1 Tablet(s) PO daily TAKE ONE TABLET BY MOUTH EVERY DAY 03/25/2013 05/06/2013 Inactive zolpidem 10 mg tablet RxNorm: 632962 1 Tablet(s) PO HS PRN 03/25/2013 07/09/2013 Inactive gentamicin 0.3 % Eye Drops RxNorm: 4884445 3 Drop(s) OPH QID three gtts to each eye QID x 7 days 03/11/2013 03/10/2013 Inactive gentamicin 0.3 % eye drops RxNorm: 175992 3 Drop(s) OPH QID three gtts to each eye QID x 7 days 03/11/2013 03/17/2013 Inactive Nexium 40 mg capsule,delayed release RxNorm: 827060 Capsule(s) PO TAKE ONE CAPSULE BY MOUTH EVERY DAY 02/15/2013 02/17/2014 Inactive Cymbalta 60 mg capsule,delayed release RxNorm: 196472 Capsule(s) PO TAKE ONE CAPSULE BY MOUTH TWICE A DAY 02/15/2013 02/17/2014 Inactive hydrocodone 10 mg-acetaminophen 325 mg tablet RxNorm: 8747422 1 Tablet(s) PO Q6 PRN 01/22/2013 04/22/2013 Inactive Lipitor 10 mg tablet RxNorm: 417763 Tablet(s) PO TAKE ONE TABLET BY MOUTH EVERY DAY 01/07/2013 09/11/2013 Inactive Cymbalta 60 mg capsule,delayed release RxNorm: 529783 Capsule(s) PO TAKE ONE CAPSULE BY MOUTH TWICE A DAY 01/02/2013 02/14/2013 Inactive Synthroid 100 mcg tablet RxNorm: 485158 1 Tablet(s) PO 12/03/2012 05/06/2013 Inactive Enablex 7.5 mg tablet,extended release RxNorm: 995732 1 Tablet(s) PO daily 11/28/2012 11/27/2012 Inactive Enablex 7.5 mg tablet,extended release RxNorm: 495099 1 Tablet(s) PO daily 11/28/2012 11/28/2012 Inactive scopolamine 1.5 mg 72 hr Transderm Patch RxNorm: 778432 1 Milligram(s) TD q72 hours 11/26/2012 05/06/2013 Inactive hydrochlorothiazide 25 mg tablet RxNorm: 322751 Tablet(s) PO TAKE ONE TABLET BY MOUTH EVERY DAY MUST CALL FOR APPOINTMENT 11/24/2012 07/18/2013 Inactive Cymbalta 60 mg capsule,delayed release RxNorm: 172808 Capsule(s) PO TAKE ONE CAPSULE BY MOUTH TWICE A DAY 10/26/2012 01/01/2013 Inactive Bystolic 10 mg tablet RxNorm: 859806 Tablet(s) PO TAKE ONE TABLET BY MOUTH EVERY DAY 10/12/2012 03/25/2013 Inactive zolpidem 10 mg tablet RxNorm: 223977 1 Tablet(s) PO HS PRN 10/02/2012 01/29/2013 Inactive alprazolam 0.25 mg tablet RxNorm: 284184 1 Tablet(s) PO QDAY PRN 10/02/2012 01/29/2013 Inactive Kenalog 40 mg/mL Susp for Injection RxNorm: 8962510 1 Milliliter(s) Inj 09/24/2012 09/24/2012 Inactive Diflucan 150 mg tablet RxNorm: 662512 1 Tablet(s) PO daily 09/24/2012 09/30/2012 Inactive acyclovir 400 mg tablet RxNorm: 238825 1 Tablet(s) PO QID 09/24/2012 10/08/2012 Inactive Cipro 500 mg tablet RxNorm: 566116 1 Tablet(s) PO BID 09/24/2012 09/30/2012 Inactive Tamiflu 75 mg capsule RxNorm: 986659 1 Capsule(s) PO BID 09/17/2012 09/16/2012 Inactive Tamiflu 75 mg capsule RxNorm: 948616 1 Capsule(s) PO BID 09/17/2012 09/16/2012 Inactive Tamiflu 75 mg capsule RxNorm: 068857 1 Capsule(s) PO BID please disregard order for #14 09/17/2012 09/21/2012 Inactive fluconazole 150 mg tablet RxNorm: 889748 1 Tablet(s) PO daily 09/10/2012 09/13/2012 Inactive ketoconazole 2 % Topical Cream RxNorm: 651756 Application TOP BID apply to affected area BID until gone 08/31/2012 11/01/2017 Inactive Norvasc 10 mg tablet RxNorm: 867327 Tablet(s) PO TAKE ONE TABLET BY MOUTH EVERY DAY 08/29/2012 04/22/2013 Inactive Cipro 500 mg tablet RxNorm: 367505 1 Tablet(s) PO BID 08/17/2012 08/26/2012 Inactive Flagyl 500 mg tablet RxNorm: 084636 1 Tablet(s) PO TID 08/17/2012 08/23/2012 Inactive Cipro 500 mg tablet RxNorm: 253486 1 Tablet(s) PO BID 08/17/2012 08/16/2012 Inactive zolpidem 10 mg tablet RxNorm: 875057 1 Tablet(s) PO HS PRN 08/17/2012 09/15/2012 Inactive Flagyl 500 mg tablet RxNorm: 910304 1 Tablet(s) PO TID 08/17/2012 08/16/2012 Inactive alprazolam 0.25 mg tablet RxNorm: 690587 1 Tablet(s) PO QDAY PRN 08/17/2012 09/15/2012 Inactive Belle Allergy 180 mg tablet RxNorm: 534935 1 Tablet(s) PO daily 08/08/2012 02/03/2013 Inactive hydrochlorothiazide 25 mg tablet RxNorm: 725477 1/2 Tablet(s) PO daily 08/08/2012 11/05/2012 Inactive needs appt Carafate 1 gram tablet RxNorm: 756232 1 Tablet(s) PO QID mix with 10 cc water and dissolve into slurry 08/08/2012 08/21/2012 Inactive hydrocodone 10 mg-acetaminophen 325 mg tablet RxNorm: 1679293 1 Tablet(s) PO Q6 PRN 08/08/2012 01/21/2013 Inactive Synthroid 100 mcg tablet RxNorm: 532998 1 Tablet(s) PO 08/08/2012 12/02/2012 Inactive Cymbalta 60 mg capsule,delayed release RxNorm: 384222 Capsule(s) PO 07/23/2012 10/25/2012 Inactive TAKE ONE CAPSULE BY MOUTH TWICE A DAY Nexium 40 mg capsule,delayed release RxNorm: 696611 Capsule(s) PO 06/20/2012 02/14/2013 Inactive TAKE ONE CAPSULE BY MOUTH EVERY DAY Lipitor 10 mg tablet RxNorm: 620467 Tablet(s) PO 06/20/2012 01/06/2013 Inactive TAKE ONE TABLET BY MOUTH EVERY DAY hydrochlorothiazide 25 mg tablet RxNorm: 429375 1 Tablet(s) PO daily 06/19/2012 08/07/2012 Inactive needs appt alprazolam 0.25 mg tablet RxNorm: 442173 1 Tablet(s) PO QDAY PRN 06/05/2012 07/04/2012 Inactive zolpidem 10 mg tablet RxNorm: 854730 1 Tablet(s) PO HS PRN 06/05/2012 07/04/2012 Inactive zolpidem 10 mg tablet RxNorm: 938376 1 Tablet(s) PO HS PRN 04/16/2012 05/15/2012 Inactive alprazolam 0.25 mg tablet RxNorm: 225708 1 Tablet(s) PO QDAY PRN 04/16/2012 05/15/2012 Inactive Cymbalta 60 mg capsule,delayed release RxNorm: 958557 1 Capsule(s) PO BID 03/22/2012 07/19/2012 Inactive Fioricet 50 mg-325 mg-40 mg tablet RxNorm: 793419 1 Tablet(s) PO Q4 PRN 03/22/2012 11/24/2013 Inactive Bystolic 10 mg tablet RxNorm: 652958 Tablet(s) PO 03/22/2012 10/11/2012 Inactive TAKE ONE TABLET BY MOUTH EVERY DAY potassium chloride ER 10 mEq Tab RxNorm: 927565 1 Tablet(s) PO daily 02/24/2012 03/01/2012 Inactive Lasix 20 mg Tab RxNorm: 971848 1 Tablet(s) PO daily 02/22/2012 02/21/2012 Inactive KCL 10 meq RxNorm: 1 PO daily 02/22/2012 02/21/2012 Inactive potassium chloride ER 10 mEq Tab RxNorm: 919446 1 Tablet(s) PO daily 02/22/2012 02/21/2012 Inactive Lasix 20 mg Tab RxNorm: 541688 1 Tablet(s) PO daily 02/22/2012 02/28/2012 Inactive KCL 10 meq RxNorm: 1 PO daily 02/22/2012 02/22/2012 Inactive potassium chloride ER 10 mEq Tab RxNorm: 043688 1 Tablet(s) PO daily 02/22/2012 02/23/2012 Inactive Rocephin 500 mg Solution for Injection RxNorm: 524041 Inj 02/15/2012 02/15/2012 Inactive Nexium 40 mg capsule,delayed release RxNorm: 587503 1 Capsule(s) PO daily 02/15/2012 No Stop Date Active Bystolic 10 mg Tab RxNorm: 673820 1 Tablet(s) PO daily 02/15/2012 08/12/2012 Inactive alprazolam 0.25 mg tablet RxNorm: 913591 1 Tablet(s) PO QDAY PRN 01/31/2012 02/29/2012 Inactive zolpidem 10 mg tablet RxNorm: 642041 1 Tablet(s) PO HS PRN 01/31/2012 02/29/2012 Inactive alprazolam 0.25 mg Tab RxNorm: 924457 1 Tablet(s) PO QDAY PRN 12/16/2011 01/14/2012 Inactive zolpidem 10 mg Tab RxNorm: 816140 1 Tablet(s) PO HS PRN 12/16/2011 01/14/2012 Inactive Norvasc 10 mg tablet RxNorm: 482465 1 Tablet(s) PO daily 12/02/2011 02/21/2012 Inactive Lipitor 10 mg tablet RxNorm: 374698 1 Tablet(s) PO daily 11/16/2011 05/13/2012 Inactive zolpidem 10 mg Tab RxNorm: 259948 1 Tablet(s) PO HS PRN 10/26/2011 12/15/2011 Inactive alprazolam 0.25 mg Tab RxNorm: 110086 1 Tablet(s) PO QDAY PRN 10/26/2011 12/15/2011 Inactive hydrochlorothiazide 25 mg tablet RxNorm: 552171 1 Tablet(s) PO daily 09/05/2011 03/02/2012 Inactive Synthroid 75 mcg tablet RxNorm: 863805 1 Tablet(s) PO daily 08/01/2011 02/26/2012 Inactive Abilify 2 mg Tab RxNorm: 787133 1 Tablet(s) PO QHS 08/01/2011 09/10/2012 Inactive dicyclomine 10 mg Cap RxNorm: 313676 1 Capsule(s) PO TID 08/01/2011 10/29/2011 Inactive alprazolam 0.25 mg Tab RxNorm: 615475 1 Tablet(s) PO QDAY PRN 07/26/2011 10/25/2011 Inactive Fioricet 50 mg-325 mg-40 mg tablet RxNorm: 501458 1 Tablet(s) PO Q4 PRN 07/14/2011 03/21/2012 Inactive Rocephin 500 mg Solution for Injection RxNorm: 815600 1 Milliliter(s) Inj 07/14/2011 08/01/2011 Inactive Nexium 40 mg Capsule, delayed release RxNorm: 946217 1 Capsule(s) PO daily 05/23/2011 10/06/2011 Inactive Bystolic 10 mg tablet RxNorm: 231389 1 Tablet(s) PO daily 05/23/2011 11/18/2011 Inactive Bystolic 10 mg Tab RxNorm: 684185 1 Tablet(s) PO daily 05/23/2011 05/22/2011 Inactive alprazolam 0.25 mg Tab RxNorm: 112704 1 Tablet(s) PO QDAY PRN 05/23/2011 07/25/2011 Inactive Influenza Virus Vaccine 0.5 mL RxNorm: IM 05/23/2011 05/23/2011 Inactive zolpidem 10 mg Tab RxNorm: 584363 1 Tablet(s) PO HS PRN 05/23/2011 10/25/2011 Inactive Rocephin 500 mg Solution for Injection RxNorm: 626297 1 Milliliter(s) Inj 05/03/2011 07/14/2011 Inactive Kenalog 40 mg/mL Susp for Injection RxNorm: 5559150 1 Milliliter(s) Inj 05/03/2011 07/14/2011 Inactive Bactrim DS 800 mg-160 mg Tab RxNorm: 268707 1 Tablet(s) PO BID 05/03/2011 08/01/2011 Inactive Bystolic 10 mg tablet RxNorm: 148824 1 Tablet(s) PO daily No Start Date Active Flonase 50 mcg/actuation nasal spray,suspension RxNorm: 3319254 2 [place] NASAL daily No Start Date 08/05/2013 Inactive Levaquin 500 mg tablet RxNorm: 999177 Tablet(s) PO No Start Date 04/19/2017 Inactive Duragesic 50 mcg/hr transdermal patch RxNorm: 361480 1 TD q72 hours No Start Date 01/13/2014 Inactive Vesicare 5 mg tablet RxNorm: 627858 1 Tablet(s) PO daily No Start Date 01/06/2015 Inactive Celebrex 200 mg capsule RxNorm: 019111 1 Capsule(s) PO daily No Start Date 04/02/2014 Inactive zolpidem 10 mg Tab RxNorm: 689853 1 Tablet(s) PO HS PRN No Start Date 05/22/2011 Inactive Zyrtec 10 mg Tab RxNorm: 0338108 1 Tablet(s) PO daily No Start Date 08/08/2012 Inactive Flonase 50 mcg/actuation nasal spray,suspension RxNorm: [id number] 1 [place] NASAL daily No Start Date 11/07/2017 Inactive 1 spray to each nostril daily Nexium 40 mg Cap RxNorm: 057543 1 Capsule(s) PO daily No Start Date 05/22/2011 Inactive ketoconazole 2 % Topical Cream RxNorm: 087080 Application TOP BID apply to affected area BID until gone No Start Date 08/30/2012 Inactive aspirin 81 mg tablet RxNorm: 593455 1 Tablet(s) PO daily No Start Date 11/13/2017 Inactive Cymbalta 60 mg capsule,delayed release RxNorm: 780250 1 Capsule(s) PO BID No Start Date 03/21/2012 Inactive alprazolam 0.25 mg Tab RxNorm: 716502 1 Tablet(s) PO QDAY PRN No Start Date 05/22/2011 Inactive baclofen 10 mg tablet RxNorm: 162082 1 Tablet(s) PO TID as needed muscle spasms No Start Date 11/14/2017 Inactive Toprol XL 100 mg 24 hr Tab RxNorm: 787427 1 Tablet(s) PO BID No Start Date 04/25/2011 Inactive Xanax 0.25 mg tablet RxNorm: 328426 1 Tablet(s) PO daily as needed No Start Date 12/27/2015 Inactive Bystolic 10 mg Tab RxNorm: 203582 1 Tablet(s) PO daily No Start Date 05/22/2011 Inactive Fioricet 50 mg-325 mg-40 mg Tab RxNorm: 131233 1 Tablet(s) PO Q4 PRN No Start Date 07/13/2011 Inactive albuterol sulfate HFA 90 mcg/Actuation Aerosol Inhaler RxNorm: 1057182 1 INH Q4 PRN No Start Date 01/06/2015 Inactive Imitrex 50 mg tablet RxNorm: 685047 1 Tablet(s) PO Q8 as needed may repeat x1 dose in 1 hour of inital dose. No Start Date 02/24/2016 Inactive dc fioricet Tessalon 200 mg Cap RxNorm: 394704 1 Capsule(s) PO Q4 PRN No Start Date 02/14/2012 Inactive Zithromax Z-Sergio 250 mg tablet RxNorm: 767555 Tablet(s) PO No Start Date 11/10/2013 Inactive hydrochlorothiazide 25 mg Tab RxNorm: 678591 1 Tablet(s) PO daily No Start Date 09/04/2011 Inactive Fish Oil 1,000 mg Cap RxNorm: 1 Capsule(s) PO TID No Start Date 11/08/2017 Inactive Deplin 15 mg Tab RxNorm: 1 Tablet(s) PO daily No Start Date 08/01/2011 Inactive Brilinta 90 mg tablet RxNorm: 8347402 1 Tablet(s) PO BID No Start Date 11/23/2015 Inactive Synthroid 75 mcg Tab RxNorm: 059147 1 Tablet(s) PO daily No Start Date 07/31/2011 Inactive ciprofloxacin 0.3 % eye drops RxNorm: 946482 2 Drop(s) ophthalmic (eye) Q2H while awake x 2 days, then Q4H x 5 days No Start Date 11/22/2017 Inactive scopolamine 1.5 mg 72 hr Transderm Patch RxNorm: 625677 1 Milligram(s) TD q72 hours No Start Date 11/25/2012 Inactive hydrocodone-acetaminophen 10 mg-325 mg tablet RxNorm: 7711460 1 Tablet(s) PO Q6 PRN No Start Date 08/07/2012 Inactive Phenergan with Codeine Syrup RxNorm: 5-10 Milliliter(s) PO Q6 PRN No Start Date 02/14/2012 Inactive Norvasc 10 mg Tab RxNorm: 991250 1 Tablet(s) PO daily No Start Date 12/01/2011 Inactive Zithromax Z-Sergio 250 mg Tab RxNorm: 468952 Tablet(s) PO No Start Date 08/01/2011 Inactive Medication Administered Medication Codes Instructions Start Date Status ceftriaxone 500 mg solution for injection RxNorm: 2567477 05/28/2018 No longer Active Kenalog 40 mg/mL suspension for injection RxNorm: 8333052 Milliliter 05/28/2018 No longer Active Kenalog 40 mg/mL suspension for injection RxNorm: 0251139 1Milliliter 01/19/2018 No longer Active ceftriaxone 500 mg solution for injection RxNorm: 2904272 500Milligram 01/19/2018 No longer Active Kenalog 40 mg/mL suspension for injection RxNorm: 7486500 1Milliliter 06/27/2017 No longer Active Kenalog 40 mg/mL suspension for injection RxNorm: 5429277 Milliliter 04/20/2017 No longer Active Kenalog 40 mg/mL suspension for injection RxNorm: 9243082 1Milliliter 03/14/2017 No longer Active ceftriaxone 500 mg solution for injection RxNorm: 9673882 1Milliliter 11/28/2016 No longer Active ceftriaxone 500 mg solution for injection RxNorm: 7841565 11/07/2016 No longer Active Kenalog 40 mg/mL suspension for injection RxNorm: 8919281 Milliliter 11/07/2016 No longer Active ceftriaxone 500 mg solution for injection RxNorm: 0410988 12/07/2015 No longer Active ceftriaxone 500 mg solution for injection RxNorm: 7054277 Milliliter 11/24/2015 No longer Active Kenalog 40 mg/mL suspension for injection RxNorm: 2219388 1Milliliter 11/24/2015 No longer Active promethazine 25 mg/mL injection solution RxNorm: 311491 Milliliter 08/27/2015 No longer Active ketorolac 60 mg/2 mL intramuscular solution RxNorm: 164616 Milliliter 08/27/2015 No longer Active ceftriaxone 500 mg solution for injection RxNorm: 8327421 08/10/2015 No longer Active Kenalog 40 mg/mL suspension for injection RxNorm: 2644955 Milliliter 08/10/2015 No longer Active ceftriaxone 500 mg solution for injection RxNorm: 4121713 1Milliliter 07/28/2015 No longer Active Kenalog 40 mg/mL suspension for injection RxNorm: 9528130 Milliliter 03/19/2015 No longer Active ceftriaxone 500 mg solution for injection RxNorm: 956961 06/23/2014 No longer Active Kenalog 40 mg/mL suspension for injection RxNorm: 9794601 Milliliter 06/23/2014 No longer Active Rocephin 500 mg solution for injection RxNorm: 202817 1mlMilliliter 09/24/2013 No longer Active Rocephin 500 mg solution for injection RxNorm: 795156 1Milliliter 09/19/2013 No longer Active Kenalog 40 mg/mL suspension for injection RxNorm: 1423331 1Milliliter 07/10/2013 No longer Active Rocephin 500 mg solution for injection RxNorm: 423308 1 07/10/2013 No longer Active Kenalog 40 mg/mL Susp for Injection RxNorm: 8732030 1Milliliter 09/24/2012 No longer Active Rocephin 500 mg Solution for Injection RxNorm: 292116 02/15/2012 No longer Active Influenza Virus Vaccine 0.5 mL RxNorm: 05/23/2011 No longer Active Immunizations Vaccine Codes Date Status Influenza CVX: 141 06/24/2013 completed Pneumococcal CVX: 33 06/24/2013 completed PPD Unknown 05/13/2013 completed Assessments Condition Codes Effective Dates Other mucopurulent conjunctivitis, bilateral ICD-10: H10.023 ICD-9: 372.03 10/08/2018 Other allergic rhinitis ICD-10: J30.89 ICD-9: 477.8 10/08/2018 Essential (primary) hypertension ICD-10: I10 ICD-9: 401.1 07/16/2018 Generalized anxiety disorder ICD-10: F41.1 ICD-9: 300.00 07/16/2018 Low back pain ICD-10: M54.5 ICD-9: 724.2 07/10/2018 Frequency of micturition ICD-10: R35.0 ICD-9: 788.41 07/10/2018 Acute recurrent maxillary sinusitis ICD-10: J01.01 ICD-9: 461.0 07/10/2018 Laceration without foreign body, left lower leg, subsequent encounter ICD-10: S81.812D ICD-9: V58.89 02/08/2018 Laceration without foreign body, right lower leg, subsequent encounter ICD-10: S81.811D ICD-9: V58.89 02/08/2018 Laceration without foreign body, right lower leg, initial encounter ICD-10: S81.811A ICD-9: 891.0 02/07/2018 Cellulitis of left lower limb ICD-10: L03.116 ICD-9: 682.6 02/07/2018 Cellulitis of right lower limb ICD-10: L03.115 ICD-9: 682.6 02/07/2018 Laceration without foreign body, left lower leg, initial encounter ICD-10: S81.812A ICD-9: 891.0 02/07/2018 Primary generalized (osteo)arthritis ICD-10: M15.0 ICD-9: 715.09 01/19/2018 Obstructive sleep apnea (adult) (pediatric) ICD-10: G47.33 ICD-9: 780.57 01/19/2018 Encounter for general adult medical examination with abnormal findings ICD-10: Z00.01 ICD-9: V70.0 11/23/2017 Other acute sinusitis ICD-10: J01.80 ICD-9: 461.8 09/12/2017 Generalized abdominal pain ICD-10: R10.84 ICD-9: 789.07 09/12/2017 Diarrhea, unspecified ICD-10: R19.7 ICD-9: 787.91 09/12/2017 Acute laryngopharyngitis ICD-10: J06.0 ICD-9: 465.0 07/25/2017 Wheezing ICD-10: R06.2 ICD-9: 786.07 07/25/2017 Cough ICD-10: R05 ICD-9: 786.2 07/25/2017 Cervicalgia ICD-10: M54.2 ICD-9: 723.1 06/27/2017 [...] encounter ICD- 10: S60.552A ICD-9: 914.6 07/28/2015 Abnormal levels of other serum enzymes ICD-10: R74.8 ICD-9: 790.5 06/11/2015 Tinea cruris ICD-10: B35.6 ICD-9: 110.3 06/11/2015 Hypothyroid ICD-9: 244.9 03/19/2015 ALLERGIC RHINITIS ICD-9: 477.9 03/19/2015 ESSENTIAL HYPERTENSION ICD-9: 401.9 03/19/2015 Anxiety ICD-9: 300.00 03/19/2015 Sleep apnea ICD-9: 780.57 03/19/2015 ACUTE SINUSITIS ICD-9: 461.9 01/07/2015 OTALGIA ICD-9: 388.70 01/07/2015 Conjunctivitis ICD-9: 372.30 01/07/2015 Noninfected skin tear of leg ICD-9: 891.0 08/05/2014 Other screening mammogram ICD-9: V76.12 07/17/2014 Chronic maxillary sinusitis ICD-9: 473.0 06/23/2014 Spasm of muscle ICD-9: 728.85 06/05/2014 Neck pain ICD-9: 723.1 06/05/2014 Headache ICD-9: 784.0 06/05/2014 Abrasion of right leg ICD-9: 916.0 04/03/2014 Tinea corporis ICD-9: 110.5 03/07/2014 Exposure to scabies ICD-9: V01.89 03/07/2014 Dysuria ICD-9: 788.1 02/11/2014 OSTEOARTH NOS-UNSPEC ICD-9: 715.90 11/21/2013 Lumbago ICD-9: 724.2 11/21/2013 History of urinary tract infection ICD-9: V13.02 10/15/2013 Paronychia ICD-9: 681.9 09/24/2013 DEPRESSIVE DISORDER NEC ICD-9: 311 09/24/2013 Cellulitis ICD-9: 682.9 09/19/2013 Thrush ICD-9: 112.0 08/05/2013 COUGH ICD-9: 786.2 07/10/2013 ESOPHAGEAL REFLUX ICD-9: 530.81 07/10/2013 Bronchitis ICD-9: 490 07/10/2013 Insomnia ICD-9: 780.52 07/10/2013 ACUTE MAXILLARY SINUSITIS ICD-9: 461.0 07/10/2013 HYPERLIPIDEMIA ICD-9: 272.4 04/30/2013 ENCNTR LONG-RX USE NEC ICD-9: V58.69 04/30/2013 Abnormal glucose ICD-9: 790.29 04/30/2013 Hip pain ICD-9: 719.45 12/03/2012 Knee pain, bilateral ICD-9: 719.46 12/03/2012 JOINT PAIN-MULT JOINTS ICD-9: 719.49 08/08/2012 EDEMA ICD-9: 782.3 02/16/2012 Urinary tract infection ICD-9: 599.0 02/15/2012 Fatigue ICD-9: 780.79 02/15/2012 Urinary frequency ICD-9: 788.41 02/15/2012 Abdominal pain ICD-9: 789.00 11/10/2011 Nausea ICD-9: 787.02 11/10/2011 Irritable bowel disease ICD-9: 564.1 08/01/2011 DIARRHEA ICD-9: 787.91 08/01/2011 VACCIN FOR INFLUENZA ICD-9: V04.81 05/23/2011 SLEEP DISTURBANCES ICD-9: 780.50 05/23/2011 GENERALIZED ANXIETY DISEASE ICD-9: 300.02 05/23/2011 Reason For Visit Reason For Visit Effective Dates Notes eye discharge 10/08/2018 hypertension 07/16/2018 nasal discharge [...] Item Item Code Result Date Comp Metabolic Nuo666 NA 141 mEq/L 09/12/2017 Comp Metabolic Vmy716 K 4.1 mEq/L 09/12/2017 Comp Metabolic Spx957 CL 105 mEq/L 09/12/2017 Comp Metabolic Eyt028 CO2 30.0 mEq/L 09/12/2017 Comp Metabolic Abp670 ANION GAP 10 09/12/2017 Comp Metabolic Cwv598 GLUCOSE 97 mg/dL 09/12/2017 Comp Metabolic Uuz163 Creat 0.7 mg/dL 09/12/2017 Comp Metabolic Djg317 eGFR 91 ml/min/1.73m2 09/12/2017 Comp Metabolic Pyf688 BUN 18 mg/dL 09/12/2017 Comp Metabolic Ret767 B/C Ratio 26.5 Ratio 09/12/2017 Comp Metabolic Zgb795 CALCIUM 9.7 mg/dL 09/12/2017 Comp Metabolic Edn680 ALK PHOS 60 U/L 09/12/2017 Comp Metabolic Cxe035 AST(SGOT) 22 U/L 09/12/2017 Comp Metabolic Xif185 ALT(SGPT) 23 U/L 09/12/2017 Comp Metabolic And922 BILI T 0.4 mg/dL 09/12/2017 Comp Metabolic Orr251 ALBUMIN 3.8 g/dL 09/12/2017 Comp Metabolic Mgd554 TPRO 6.4 g/dL 09/12/2017 Comp Metabolic Uzd098 GLOB 2.6 g/dL 09/12/2017 Comp Metabolic Lks320 A/G Ratio 1.5 Ratio 09/12/2017 Comp Metabolic Iss019 Osmo 283 mOsmo 09/12/2017 Cbc With Differential Ord2 WBC 7.90 K/ul 09/12/2017 Cbc With Differential Ord2 RBC 4.99 M/ul 09/12/2017 Cbc With Differential Ord2 HGB 15.3 g/dl 09/12/2017 Cbc With Differential Ord2 Neut% 57.0 % 09/12/2017 Cbc With Differential Ord2 HCT 47.5 % 09/12/2017 Cbc With Differential Ord2 Lymph% 31.1 % 09/12/2017 Cbc With Differential Ord2 MCV 95.2 fl 09/12/2017 Cbc With Differential Ord2 MCH 30.7 pg 09/12/2017 Cbc With Differential Ord2 [place]% 7.2 % 09/12/2017 Cbc With Differential Ord2 [...] 2.46 K/ul 09/12/2017 Cbc With Differential Ord2 [place] ABS# 0.6 K/ul 09/12/2017 Cbc With Differential Ord2 Eos ABS# 0.3 K/ul 09/12/2017 Cbc With Differential Ord2 Baso ABS# 0.1 K/ul 09/12/2017 Urine Culture Ucult Preliminary NO Growth Day 1 11/30/2016 Urine Culture Ucult Complete NO Growth Day 2 11/30/2016 Comp Metabolic Bvz697 NA 139 mEq/L 11/07/2016 Comp Metabolic Apk185 K 3.8 mEq/L 11/07/2016 Comp Metabolic Tvw512 CL 106 mEq/L 11/07/2016 Comp Metabolic Bgh236 CO2 25.0 mEq/L 11/07/2016 Comp Metabolic Vli353 ANION GAP 12 11/07/2016 Comp Metabolic Cbf687 GLUCOSE 98 mg/dL 11/07/2016 Comp Metabolic Zep956 Creat 0.8 mg/dL 11/07/2016 Comp Metabolic Tyz104 eGFR 71 ml/min/1.73m2 11/07/2016 Comp Metabolic Gsz352 BUN 36 mg/dL 11/07/2016 Comp Metabolic Lxx178 B/C Ratio 42.9 Ratio 11/07/2016 Comp Metabolic Gfl440 CALCIUM 9.9 mg/dL 11/07/2016 Comp Metabolic Thf701 ALK PHOS 57 U/L 11/07/2016 Comp Metabolic Qdp886 AST(SGOT) 24 U/L 11/07/2016 Comp Metabolic Yez222 ALT(SGPT) 28 U/L 11/07/2016 Comp Metabolic Niy290 BILI T 0.4 mg/dL 11/07/2016 Comp Metabolic Sqp969 ALBUMIN 4.2 g/dL 11/07/2016 Comp Metabolic Bbk294 TPRO 7.0 g/dL 11/07/2016 Comp Metabolic Tnv805 GLOB 2.8 g/dL 11/07/2016 Comp Metabolic Qss155 A/G Ratio 1.5 Ratio 11/07/2016 Comp Metabolic Wrw617 Osmo 286 mOsmo 11/07/2016 Free T4 Tzm369 FREE T4 0.75 ng/dL 11/07/2016 Lipid Ord30 CHOL 206 mg/dL 11/07/2016 [...] 26.9 % 11/07/2016 Cbc With Differential Ord2 [place]% 6.1 % 11/07/2016 Cbc With Differential Ord2 [...] 2.48 K/ul 11/07/2016 Cbc With Differential Ord2 [place] ABS# 0.6 K/ul 11/07/2016 Cbc With Differential Ord2 Eos ABS# 0.3 K/ul 11/07/2016 Cbc With Differential Ord2 Baso ABS# 0.1 K/ul 11/07/2016 Tsh Ord6 hTSH II 3.46 uIU/mL 11/07/2016 Comp Metabolic Lxf410 NA 138 mEq/L 05/10/2016 Comp Metabolic Ddb021 K 3.8 mEq/L 05/10/2016 Comp Metabolic Prm568 CL 102 mEq/L 05/10/2016 Comp Metabolic Ebn046 CO2 29.0 mEq/L 05/10/2016 Comp Metabolic Quk338 ANION GAP 11 05/10/2016 Comp Metabolic Vqf703 GLUCOSE 107 mg/dL 05/10/2016 Comp Metabolic Hlb292 Creat 0.7 mg/dL 05/10/2016 Comp Metabolic Gzg168 eGFR 93 ml/min/1.73m2 05/10/2016 Comp Metabolic Dvk047 BUN 18 mg/dL 05/10/2016 Comp Metabolic Ugh183 B/C Ratio 26.9 Ratio 05/10/2016 Comp Metabolic Jvb415 CALCIUM 9.8 mg/dL 05/10/2016 Comp Metabolic Udd386 ALK PHOS 60 U/L 05/10/2016 Comp Metabolic Jsi961 AST(SGOT) 21 U/L 05/10/2016 Comp Metabolic Myw555 ALT(SGPT) 23 U/L 05/10/2016 Comp Metabolic Agp493 BILI T 0.5 mg/dL 05/10/2016 Comp Metabolic Aoi897 ALBUMIN 4.1 g/dL 05/10/2016 Comp Metabolic Omj573 TPRO 6.7 g/dL 05/10/2016 Comp Metabolic Iyq682 GLOB 2.7 g/dL 05/10/2016 Comp Metabolic Cal672 A/G Ratio 1.5 Ratio 05/10/2016 Comp Metabolic Pcz917 Osmo 278 mOsmo 05/10/2016 Lipid Ord30 CHOL 169 mg/dL 05/10/2016 Lipid Ord30 HDL 50.0 mg/dl 05/10/2016 Lipid Ord30 TRIG 161 mg/dL 05/10/2016 Lipid Ord30 LDL 87 mg/dL 05/10/2016 Lipid Ord30 C/HDL 3.4 Ratio 05/10/2016 Comp Metabolic Rpg396 NA 137 mEq/L 06/12/2015 Comp Metabolic Abn212 K 3.8 mEq/L 06/12/2015 Comp Metabolic Kfs603 CL 104 mEq/L 06/12/2015 Comp Metabolic Doi604 CO2 24.0 mEq/L 06/12/2015 Comp Metabolic Ysv733 ANION GAP 13 06/12/2015 Comp Metabolic Yjq945 GLUCOSE 92 mg/dL 06/12/2015 Comp Metabolic Nvi820 Creat 0.7 mg/dL 06/12/2015 Comp Metabolic Gru405 eGFR 87 ml/min/1.73m2 06/12/2015 Comp Metabolic Zdl460 BUN 31 mg/dL 06/12/2015 Comp Metabolic Dbx980 B/C Ratio 43.7 Ratio 06/12/2015 Comp Metabolic Woq482 CALCIUM 10.0 mg/dL 06/12/2015 Comp Metabolic Vef817 ALK PHOS 58 U/L 06/12/2015 Comp Metabolic Idi069 AST(SGOT) 32 U/L 06/12/2015 Comp Metabolic Irq169 ALT(SGPT) 33 U/L 06/12/2015 Comp Metabolic Jdu718 BILI T 0.5 mg/dL 06/12/2015 Comp Metabolic Zab529 ALBUMIN 4.1 g/dL 06/12/2015 Comp Metabolic Oum333 TPRO 6.6 g/dL 06/12/2015 Comp Metabolic Wkl952 GLOB 2.5 g/dL 06/12/2015 Comp Metabolic Lwt191 A/G Ratio 1.6 Ratio 06/12/2015 Comp Metabolic Hqd042 Osmo 280 mOsmo 06/12/2015 Cbc With Differential [...] With Differential Ord2 RDW 14.2 % 06/12/2015 TSH 2515969 TSH 4.339 uIU/ML 04/30/2013 GFR CALC 5514223 GFR AA >60 ML/MIN 04/30/2013 GFR CALC 0409595 GFR NON-AA >60 ML/MIN 04/30/2013 A1C HPLC 3699502 A1C HPLC 17739-0 5.6 % 04/30/2013 FREE T4 8077067 FREE T4 0.84 NG/DL 04/30/2013 CHEM 14 7708883 AST 22 U/L 04/30/2013 CHEM 14 2302139 ALT 22 IU/L 04/30/2013 CHEM 14 2295325 BUN 24 MG/DL 04/30/2013 CHEM 14 1074592 ALBUMIN 4.2 GM/DL 04/30/2013 CHEM 14 1469882 CHLORIDE 107 MMOL/L 04/30/2013 CHEM 14 7244239 BILI TOT 0.3 MG/DL 04/30/2013 CHEM 14 3645044 ALK PHOS 88 U/L 04/30/2013 CHEM 14 4249357 SODIUM 141 MMOL/L 04/30/2013 CHEM 14 7128998 CREATININE 0.60 MG/DL 04/30/2013 CHEM 14 0699358 CALCIUM 9.9 MG/DL 04/30/2013 CHEM 14 4430222 POTASSIUM 3.7 MMOL/L 04/30/2013 CHEM 14 9921166 PROT TOT 6.6 GM/DL 04/30/2013 CHEM 14 9999483 GLUCOSE 123 MG/DL 04/30/2013 CHEM 14 9562163 BICARB 25 MMOL/L 04/30/2013 CHEM 14 4092510 ANION GAP 9 MEQ/L 04/30/2013 LIPID GRP HDL TEST 46 MG/DL 04/30/2013 LIPID GRP TRIG 148 MG/DL 04/30/2013 LIPID GRP TEST LDL 75 MG/DL 04/30/2013 LIPID GRP CHOL 151 MG/DL 04/30/2013 LIPID GRP RCHOL/HDL 3.28 RATIO 04/30/2013 CBC 1587343 WBC 8.7 10e9/L 04/30/2013 CBC 0245603 RBC 4.63 10e12/L 04/30/2013 CBC 9558058 HGB 14.1 g/dL 04/30/2013 CBC 1883905 HCT DET 42.2 % 04/30/2013 CBC 8840863 MCV 91.1 fL 04/30/2013 CBC 7114343 MCH 30.5 pg 04/30/2013 CBC 4777439 MCHC 33.4 g/dL 04/30/2013 CBC 6461007 PLT 248 10e9/L 04/30/2013 CBC 4330922 MPV 12.1 fL 04/30/2013 CBC 7485152 LARA % 59.0 % 04/30/2013 CBC 9327017 LY % 27.6 % 04/30/2013 CBC 8902432 MON % 8.0 % 04/30/2013 CBC 8650157 EOS % 4.8 % 04/30/2013 CBC 1020015 BASO % 0.6 % 04/30/2013 CBC 0175326 RDW 13.3 % 04/30/2013 CBC 2379807 ABS LARA 5.13 10e9/L 04/30/2013 CBC 3217413 ABS LYMPH 2.40 10e9/L 04/30/2013 CBC 4289871 ABS MONO 0.70 10e9/L 04/30/2013 CBC 3862468 ABS EOS 0.42 10e9/L 04/30/2013 CBC 8383885 ABS BASO 0.05 10e9/L 04/30/2013 CBC 3644162 RDW-SD 43.1 fL 04/30/2013 LIPID GRP HDL TEST 54 MG/DL 11/29/2012 LIPID GRP TRIG 77 MG/DL 11/29/2012 LIPID GRP TEST LDL 78 MG/DL 11/29/2012 LIPID GRP CHOL 147 MG/DL 11/29/2012 LIPID GRP RCHOL/HDL 2.72 RATIO 11/29/2012 GFR CALC 8569223 GFR AA >60 ML/MIN 11/29/2012 GFR CALC 8203443 GFR NON-AA >60 ML/MIN 11/29/2012 A1C HPLC 5377360 A1C HPLC 89684-4 5.5 % 11/29/2012 FREE T4 7177952 FREE T4 1.23 NG/DL 11/29/2012 TSH 7153885 TSH 3.341 uIU/ML 11/29/2012 CBC 9439764 WBC 8.4 10e9/L 11/29/2012 CBC 6503588 RBC 4.77 10e12/L 11/29/2012 CBC 9751631 HGB 14.9 g/dL 11/29/2012 CBC 7329661 HCT DET 44.2 % 11/29/2012 CBC 8031801 MCV 92.7 fL 11/29/2012 CBC 2073508 MCH 31.2 pg 11/29/2012 CBC 4908666 MCHC 33.7 g/dL 11/29/2012 CBC 6315289 PLT 253 10e9/L 11/29/2012 CBC 2979727 MPV 11.8 fL 11/29/2012 CBC 0573238 LARA % 54.9 % 11/29/2012 CBC 5710134 LY % 29.0 % 11/29/2012 CBC 2139794 MON % 10.4 % 11/29/2012 CBC 6871505 EOS % 5.1 % 11/29/2012 CBC 4105534 BASO % 0.6 % 11/29/2012 CBC 9033593 RDW 13.8 % 11/29/2012 CBC 1709622 ABS LARA 4.61 10e9/L 11/29/2012 CBC 4350167 ABS LYMPH 2.44 10e9/L 11/29/2012 CBC 1346264 ABS MONO 0.87 10e9/L 11/29/2012 CBC 9535262 ABS EOS 0.43 10e9/L 11/29/2012 CBC 4841645 ABS BASO 0.05 10e9/L 11/29/2012 CBC 8122571 RDW-SD 45.9 fL 11/29/2012 CHEM 14 3390797 AST 25 U/L 11/29/2012 CHEM 14 2496914 ALT 26 IU/L 11/29/2012 CHEM 14 0696790 BUN 25 MG/DL 11/29/2012 CHEM 14 7475512 ALBUMIN 4.4 GM/DL 11/29/2012 CHEM 14 2097049 CHLORIDE 106 MMOL/L 11/29/2012 CHEM 14 8924643 BILI TOT 0.4 MG/DL 11/29/2012 CHEM 14 1545355 ALK PHOS 86 U/L 11/29/2012 CHEM 14 1712010 SODIUM 141 MMOL/L 11/29/2012 CHEM 14 5964682 CREATININE 0.80 MG/DL 11/29/2012 CHEM 14 6389871 CALCIUM 9.7 MG/DL 11/29/2012 CHEM 14 5234500 POTASSIUM 4.0 MMOL/L 11/29/2012 CHEM 14 4614710 PROT TOT 6.6 GM/DL 11/29/2012 CHEM 14 2384511 GLUCOSE 112 MG/DL 11/29/2012 CHEM 14 4170856 BICARB 29 MMOL/L 11/29/2012 CHEM 14 9507329 ANION GAP 6 MEQ/L 11/29/2012 GFR CALC 2370199 GFR AA >60 ML/MIN 08/07/2012 GFR CALC 8951097 GFR NON-AA >60 ML/MIN 08/07/2012 TSH 5722506 TSH 7.419 uIU/ML 08/07/2012 CBC 9210254 WBC 8.7 10e9/L 08/07/2012 CBC 5567373 RBC 4.67 10e12/L 08/07/2012 CBC 6922114 HGB 14.4 g/dL 08/07/2012 CBC 6477805 HCT DET 42.8 % 08/07/2012 CBC 2179584 MCV 91.6 fL 08/07/2012 CBC 8940431 MCH 30.8 pg 08/07/2012 CBC 2007234 MCHC 33.6 g/dL 08/07/2012 CBC 1988419 PLT 271 10e9/L 08/07/2012 CBC 3154236 MPV 12.3 fL 08/07/2012 CBC 3431152 LARA % 50.6 % 08/07/2012 CBC 2220868 LY % 34.9 % 08/07/2012 CBC 9502435 MON % 9.1 % 08/07/2012 CBC 1430516 EOS % 5.1 % 08/07/2012 CBC 0443066 BASO % 0.3 % 08/07/2012 CBC 4927291 RDW 13.6 % 08/07/2012 CBC 7720277 ABS LARA 4.40 10e9/L 08/07/2012 CBC 6216604 ABS LYMPH 3.04 10e9/L 08/07/2012 CBC 3600988 ABS MONO 0.79 10e9/L 08/07/2012 CBC 5982687 ABS EOS 0.44 10e9/L 08/07/2012 CBC 9067227 ABS BASO 0.03 10e9/L 08/07/2012 CBC 6393750 RDW-SD 44.1 fL 08/07/2012 LIPID GRP HDL TEST 50 MG/DL 08/07/2012 LIPID GRP TRIG 127 MG/DL 08/07/2012 LIPID GRP TEST LDL 93 MG/DL 08/07/2012 LIPID GRP CHOL 168 MG/DL 08/07/2012 LIPID GRP RCHOL/HDL 3.36 RATIO 08/07/2012 FREE T4 1972752 FREE T4 1.11 NG/DL 08/07/2012 A1C HPLC 4833941 A1C HPLC 40511-0 5.4 % 08/07/2012 CHEM 14 8173347 AST 23 U/L 08/07/2012 CHEM 14 2626338 ALT 34 IU/L 08/07/2012 CHEM 14 4367661 BUN 26 MG/DL 08/07/2012 CHEM 14 3712814 ALBUMIN 4.4 GM/DL 08/07/2012 CHEM 14 9106223 CHLORIDE 105 MMOL/L 08/07/2012 CHEM 14 5064323 BILI TOT 0.5 MG/DL 08/07/2012 CHEM 14 3689009 ALK PHOS 79 U/L 08/07/2012 CHEM 14 6437361 SODIUM 140 MMOL/L 08/07/2012 CHEM 14 3070321 CREATININE 0.71 MG/DL 08/07/2012 CHEM 14 0685332 CALCIUM 10.4 MG/DL 08/07/2012 CHEM 14 5500334 POTASSIUM 3.8 MMOL/L 08/07/2012 CHEM 14 0505367 PROT TOT 6.8 GM/DL 08/07/2012 CHEM 14 3168649 GLUCOSE 104 MG/DL 08/07/2012 CHEM 14 9396688 BICARB 27 MMOL/L 08/07/2012 CHEM 14 0564922 ANION GAP 8 MEQ/L 08/07/2012 A1C HPLC 4105521 A1C HPLC 39935-0 5.3 % 02/21/2012 GFR CALC 6388422 GFR AA >60 ML/MIN 02/16/2012 GFR CALC 1026139 GFR NON-AA >60 ML/MIN 02/16/2012 TSH 0379519 TSH 0.832 uIU/ML 02/16/2012 FREE T4 6180093 FREE T4 1.04 NG/DL 02/16/2012 BMP 9198314 GLUCOSE 112 MG/DL 02/16/2012 BMP 3283949 CREATININE 0.65 MG/DL 02/16/2012 BMP 5511817 BUN 17 MG/DL 02/16/2012 BMP 5125298 SODIUM 144 MMOL/L 02/16/2012 BMP 1865843 POTASSIUM 4.0 MMOL/L 02/16/2012 BMP 2426766 CHLORIDE 107 MMOL/L 02/16/2012 BMP 2466636 BICARB 29 MMOL/L 02/16/2012 BMP 6886172 ANION GAP 8 MEQ/L 02/16/2012 BMP 6026746 CALCIUM 9.5 MG/DL 02/16/2012 CBC 4141245 WBC 7.1 10e9/L 02/16/2012 CBC 0915175 RBC 4.47 10e12/L 02/16/2012 CBC 1351239 HGB 13.5 g/dL 02/16/2012 CBC 7301508 HCT DET 40.7 % 02/16/2012 CBC 0465802 MCV 91.1 fL 02/16/2012 CBC 3962979 MCH 30.2 pg 02/16/2012 CBC 2738332 MCHC 33.2 g/dL 02/16/2012 CBC 0750028 PLT 238 10e9/L 02/16/2012 CBC 5132983 MPV 11.4 fL 02/16/2012 CBC 7273264 LARA % 55.7 % 02/16/2012 CBC 2873385 LY % 29.6 % 02/16/2012 CBC 2453173 MON % 9.2 % 02/16/2012 CBC 6939588 EOS % 5.1 % 02/16/2012 CBC 3699494 BASO % 0.4 % 02/16/2012 CBC 5809867 RDW 13.0 % 02/16/2012 CBC 3362363 ABS LARA 3.95 10e9/L 02/16/2012 CBC 9004405 ABS LYMPH 2.10 10e9/L 02/16/2012 CBC 3472568 ABS MONO 0.65 10e9/L 02/16/2012 CBC 6351948 ABS EOS 0.36 10e9/L 02/16/2012 CBC 5119027 ABS BASO 0.03 10e9/L 02/16/2012 CBC 8733487 RDW-SD 42.4 fL 02/16/2012 URINALYSIS NONAUTO W/O SCOPE 97554 Specific [place] 1.015 DateTime(Free Text in Aprima) URINALYSIS NONAUTO W/O SCOPE 27024 PH 7 DateTime(Free Text in Aprima) URINALYSIS NONAUTO W/O SCOPE 66963 GLUCOSE neg DateTime(Free Text in Aprima) URINALYSIS NONAUTO W/O SCOPE 55884 Protein 1+ DateTime(Free Text in Aprima) URINALYSIS NONAUTO W/O SCOPE 96359 Blood neg DateTime(Free Text in Aprima) URINALYSIS NONAUTO W/O SCOPE 14751 Bilirubin neg DateTime(Free Text in Aprima) URINALYSIS NONAUTO W/O SCOPE 61330 Ketones neg DateTime(Free Text in Aprima) URINALYSIS NONAUTO W/O SCOPE 29487 Urobilinogen neg DateTime(Free Text in Aprima) URINALYSIS NONAUTO W/O SCOPE 39245 Nitrite postive DateTime(Free Text in Aprima) URINALYSIS NONAUTO W/O SCOPE 78254 Leukocytes 3+ DateTime(Free Text in Aprima) URINALYSIS NONAUTO W/O SCOPE 07541 Specific [place] 1.030 DateTime(Free Text in Aprima) URINALYSIS NONAUTO W/O SCOPE 46182 PH 6 DateTime(Free Text in Aprima) URINALYSIS NONAUTO W/O SCOPE 52556 GLUCOSE neg DateTime(Free Text in Aprima) URINALYSIS NONAUTO W/O SCOPE 27725 Protein neg DateTime(Free Text in Aprima) URINALYSIS NONAUTO W/O SCOPE 04154 Blood neg DateTime(Free Text in Aprima) URINALYSIS NONAUTO W/O SCOPE 95808 Bilirubin neg DateTime(Free Text in Aprima) URINALYSIS NONAUTO W/O SCOPE 24560 Ketones neg DateTime(Free Text in Aprima) URINALYSIS NONAUTO W/O SCOPE 28279 Urobilinogen neg DateTime(Free Text in Aprima) URINALYSIS NONAUTO W/O SCOPE 26989 Nitrite neg DateTime(Free Text in Aprima) URINALYSIS NONAUTO W/O SCOPE 49183 Leukocytes trace DateTime(Free Text in Aprima) URINALYSIS NONAUTO W/O SCOPE 57729 Specific [place] 1.005 DateTime(Free Text in Aprima) URINALYSIS NONAUTO W/O SCOPE 64773 PH 5 DateTime(Free Text in Aprima) URINALYSIS NONAUTO W/O SCOPE 99468 GLUCOSE neg DateTime(Free Text in Aprima) URINALYSIS NONAUTO W/O SCOPE 79567 Protein neg DateTime(Free Text in Aprima) URINALYSIS NONAUTO W/O SCOPE 76416 Blood neg DateTime(Free Text in Aprima) URINALYSIS NONAUTO W/O SCOPE 29875 Bilirubin neg DateTime(Free Text in Aprima) URINALYSIS NONAUTO W/O SCOPE 30760 Ketones neg DateTime(Free Text in Aprima) URINALYSIS NONAUTO W/O SCOPE 62920 Urobilinogen neg DateTime(Free Text in Aprima) URINALYSIS NONAUTO W/O SCOPE 42258 Nitrite neg DateTime(Free Text in Aprima) URINALYSIS NONAUTO W/O SCOPE 23671 Leukocytes neg DateTime(Free Text in Aprima) UA 47391 Specific [place] 1.030 DateTime(Free Text in Aprima) UA 46729 PH 5 DateTime(Free Text in Aprima) UA 00499 GLUCOSE neg DateTime(Free Text in Aprima) UA 35860 Protein trace DateTime(Free Text in Aprima) UA 80425 Blood large DateTime(Free Text in Aprima) UA 53316 Bilirubin neg DateTime(Free Text in Aprima) UA 76150 Ketones neg DateTime(Free Text in Aprima) UA 34551 Urobilinogen neg DateTime(Free Text in Aprima) UA 70409 Nitrite neg DateTime(Free Text in Aprima) UA 62839 Leukocytes large DateTime(Free Text in Aprima) Review of Systems System Result Effective Dates Constitutional No recent illness 10/08/2018 Constitutional No [...] Codes Date URINALYSIS NONAUTO W/O SCOPE CPT-4: 85268 07/10/2018 TRIAMCINOLONE ACET INJ NOS CPT-4: J3301 05/28/2018 ROCEPHIN, PER 250 MG CPT- 4: J0696 05/28/2018 ROCEPHIN, PER 250 MG CPT- 4: J0696 01/19/2018 TRIAMCINOLONE ACET INJ NOS CPT-4: J3301 01/19/2018 PPPS, SUBSEQ VISIT CPT- 4: G0439 11/23/2017 TRIAMCINOLONE ACET INJ NOS CPT-4: J3301 06/27/2017 THER/PROPH/DIAG INJ SC/IM CPT-4: 81895 04/20/2017 TRIAMCINOLONE ACET INJ NOS CPT-4: J3301 04/20/2017 TRIAMCINOLONE ACET INJ NOS CPT-4: J3301 03/14/2017 ROCEPHIN, PER 250 MG CPT- 4: J0696 03/14/2017 DESTRUCT PREMALG LESION CPT-4: 71126 12/05/2016 DESTRUCT PREMALG LES 2-14 CPT-4: 73210 12/05/2016 URINALYSIS NONAUTO W/O SCOPE CPT-4: 15973 11/28/2016 ROCEPHIN, PER 250 MG CPT- 4: J0696 11/28/2016 PPPS, SUBSEQ VISIT CPT- 4: G0439 11/07/2016 THER/PROPH/DIAG INJ SC/IM CPT-4: 93846 11/07/2016 TRIAMCINOLONE ACET INJ NOS CPT-4: J3301 11/07/2016 ROCEPHIN, PER 250 MG CPT- 4: J0696 11/07/2016 THER/PROPH/DIAG INJ SC/IM CPT-4: 09592 08/15/2016 TRIAMCINOLONE ACET INJ NOS CPT-4: J3301 08/15/2016 ROCEPHIN, PER 250 MG CPT- 4: J0696 08/15/2016 URINALYSIS NONAUTO W/O SCOPE CPT-4: 68974 05/05/2016 ROCEPHIN, PER 250 MG CPT- 4: J0696 12/07/2015 TRIAMCINOLONE ACET INJ NOS CPT-4: J3301 11/24/2015 ROCEPHIN, PER 250 MG CPT- 4: J0696 11/24/2015 THER/PROPH/DIAG INJ SC/IM CPT-4: 88728 11/24/2015 THER/PROPH/DIAG INJ SC/IM CPT-4: 00187 08/27/2015 KETOROLAC TROMETHAMINE INJ CPT-4: J1885 08/27/2015 PROMETHAZINE HCL INJECTION CPT-4: J2550 08/27/2015 THER/PROPH/DIAG INJ SC/IM CPT-4: 90708 08/10/2015 TRIAMCINOLONE ACET INJ NOS CPT-4: J3301 08/10/2015 ROCEPHIN, PER 250 MG CPT- 4: J0696 08/10/2015 C WOUN RTS (CULTURE OTHR SPECIMN AEROBIC) CPT-4: 45825 07/28/2015 THER/PROPH/DIAG INJ SC/IM CPT-4: 82435 03/19/2015 TRIAMCINOLONE ACET INJ NOS CPT-4: J3301 03/19/2015 ROCEPHIN, PER 250 MG CPT- 4: J0696 06/23/2014 TRIAMCINOLONE ACET INJ NOS CPT-4: J3301 06/23/2014 INJ TRIGGER POINT 1/2 MUSCL CPT-4: 40340 06/05/2014 URINALYSIS NONAUTO W/O SCOPE CPT-4: 22152 02/11/2014 URINALYSIS NONAUTO W/O SCOPE CPT-4: 71324 10/15/2013 ROCEPHIN, PER 250 MG CPT- 4: J0696 09/24/2013 THER/PROPH/DIAG INJ SC/IM CPT-4: 53008 09/19/2013 ROCEPHIN, PER 250 MG CPT- 4: J0696 09/19/2013 PRESCRIP TRANSMIT VIA ERX SY CPT-4: G8553 08/05/2013 ROCEPHIN, PER 250 MG CPT- 4: J0696 07/10/2013 THER/PROPH/DIAG INJ SC/IM CPT-4: 12134 07/10/2013 TRIAMCINOLONE ACET INJ NOS CPT-4: J3301 07/10/2013 PRESCRIP TRANSMIT VIA ERX SY CPT-4: G8553 07/10/2013 02145 EST. PATIENT, LEVEL III CPT-4: 06184 06/03/2013 PRESCRIP TRANSMIT VIA ERX SY CPT-4: G8553 06/03/2013 PRESCRIP TRANSMIT VIA ERX SY CPT-4: G8553 05/07/2013 ROUTINE VENIPUNCTURE CPT- 4: 83620 04/30/2013 ROUTINE VENIPUNCTURE CPT- 4: 93445 11/29/2012 TRIAMCINOLONE ACET INJ NOS CPT-4: J3301 09/24/2012 THER/PROPH/DIAG INJ SC/IM CPT-4: 98750 09/24/2012 URINALYSIS NONAUTO W/O SCOPE CPT-4: 75144 09/24/2012 PRESCRIP TRANSMIT VIA ERX SY CPT-4: G8553 09/24/2012 PRESCRIP TRANSMIT VIA ERX SY CPT-4: G8553 09/10/2012 PRESCRIP TRANSMIT VIA ERX SY CPT-4: G8553 08/08/2012 ROUTINE VENIPUNCTURE CPT- 4: 12953 08/07/2012 ROUTINE VENIPUNCTURE CPT- 4: 53603 02/16/2012 URINALYSIS NONAUTO W/O SCOPE CPT-4: 24628 02/15/2012 ROCEPHIN, PER 250 MG CPT- 4: J0696 02/15/2012 PRESCRIP TRANSMIT VIA ERX SY CPT-4: G8553 02/15/2012 ROUTINE VENIPUNCTURE CPT- 4: 72273 11/08/2011 ROCEPHIN, PER 250 MG CPT- 4: J0696 07/14/2011 THER/PROPH/DIAG INJ SC/IM CPT-4: 78415 07/14/2011 Influenza Virus Vaccine, Split Virus, >3 Yrs, IM CPT-4: 83526 05/23/2011 IMMUNIZATION ADMIN CPT- 4: 49108 05/23/2011 THER/PROPH/DIAG INJ SC/IM CPT-4: 23637 05/03/2011 ROCEPHIN, PER 250 MG CPT- 4: J0696 05/03/2011 TRIAMCINOLONE ACET INJ NOS CPT-4: J3301 05/03/2011 Vital Signs Date Vital 10/08/2018 Blood Pressure 1: 140/80 Code: 8480-6 BMI: 32.1 Code: 84115-9 Heart Rate 1: 92 bpm Height: 4'11" SpO2: 103% Weight: 159 lbs 07/16/2018 Blood Pressure 1: 142/80 Code: 8480-6 BMI: 31.1 Code: 97118-6 Heart Rate 1: 78 bpm Height: 4'11" SpO2: 98% Weight: 154 lbs 07/10/2018 Blood Pressure 1: 156/82 Code: 8480-6 BMI: 31.1 Code: 05024-0 Heart Rate 1: 63 bpm Height: 4'11" SpO2: 99% Weight: 154 lbs 05/28/2018 Blood Pressure 1: 142/80 Code: 8480-6 Heart Rate 1: 82 bpm Height: SpO2: 97% Temperature: 35.9 (C) / 96.6 (F) Weight: 02/07/2018 Height: Weight: 01/19/2018 Blood Pressure 1: 128/76 Code: 8480-6 BMI: 31.2 Code: 85889-1 Heart Rate 1: 71 bpm Height: 4'11" SpO2: 96% Temperature: 36.5 (C) / 97.7 (F) Weight: 154 lbs 8 oz 11/23/2017 Blood Pressure 1: 146/80 Code: 8480-6 BMI: 31.7 Code: 70846-9 Heart Rate 1: 64 bpm Height: 4'11" SpO2: 97% Waist Measure (cm): 89 cm Weight: 157 lbs 09/12/2017 Blood Pressure 1: 140/86 Code: 8480-6 Heart Rate 1: 62 bpm SpO2: 96% Temperature: 36.6 (C) / 97.8 (F) Weight: 153 lbs 07/25/2017 Blood Pressure 1: 140/72 Code: 8480-6 BMI: 31.3 Code: 57520-1 Heart Rate 1: 76 bpm Height: 4'11" SpO2: 97% Temperature: 37.2 (C) / 99.0 (F) Weight: 155 lbs 06/27/2017 Blood Pressure 1: 144/84 Code: 8480-6 BMI: 31.1 Code: 31485-7 Heart Rate 1: 63 bpm Height: 4'11" SpO2: 99% Temperature: 36.4 (C) / 97.6 (F) Weight: 154 lbs 05/08/2017 Blood Pressure 1: 142/86 Code: 8480-6 BMI: 30.9 Code: 10666-8 Height: 4'11" Temperature: 36.3 (C) / 97.4 (F) Weight: 153 lbs 03/14/2017 Blood Pressure 1: 146/82 Code: 8480-6 BMI: 30.9 Code: 48085-7 Heart Rate 1: 64 bpm Height: 4'11" SpO2: 94% Weight: 153 lbs 02/20/2017 Blood Pressure 1: 142/80 Code: 8480-6 BMI: 30.9 Code: 50675-2 Heart Rate 1: 75 bpm Height: 4'11" SpO2: 97% Weight: 153 lbs 02/06/2017 Blood Pressure 1: 138/90 Code: 8480-6 BMI: 31.5 Code: 90399-4 Heart Rate 1: 61 bpm Height: 4'11" SpO2: 98% Weight: 156 lbs 12/05/2016 Blood Pressure 1: 122/72 Code: 8480-6 Heart Rate 1: 59 bpm Height: 4'11" SpO2: 98% Weight: 11/28/2016 Blood Pressure 1: 154/86 Code: 8480-6 BMI: 31.3 Code: 80705-9 Heart Rate 1: 64 bpm Height: 4'11" SpO2: 94% Temperature: 36.2 (C) / 97.2 (F) Weight: 155 lbs 11/07/2016 Blood Pressure 1: 128/64 Code: 8480-6 BMI: 31.5 Code: 67096-5 Heart Rate 1: 59 bpm Height: 4'11" SpO2: 97% Weight: 156 lbs 08/15/2016 Blood Pressure 1: 110/62 Code: 8480-6 BMI: 31.5 Code: 64653-9 Heart Rate 1: 76 bpm Height: 4'11" SpO2: 97% Weight: 156 lbs 06/07/2016 Blood Pressure 1: 120/80 Code: 8480-6 BMI: 32.9 Code: 10760-0 Heart Rate 1: 63 bpm Height: 4'11" SpO2: 93% Temperature: 36.5 (C) / 97.7 (F) Weight: 163 lbs 03/15/2016 Blood Pressure 1: 90/42 Code: 8480-6 Heart Rate 1: 65 bpm SpO2: 94% 03/14/2016 Blood Pressure 1: 188/110 Code: 8480-6 Heart Rate 1: 68 bpm SpO2: 96% 02/22/2016 Blood Pressure 1: 158/80 Code: 8480-6 BMI: 32.7 Code: 09569-9 Heart Rate 1: 71 bpm Height: 4'11" SpO2: 95% Weight: 162 lbs 12/07/2015 Blood Pressure 1: 140/88 Code: 8480-6 BMI: 32.9 Code: 80388-7 Heart Rate 1: 99 bpm Height: 4'11" SpO2: 94% Temperature: 35.9 (C) / 96.6 (F) Weight: 163 lbs 11/24/2015 Blood Pressure 1: 144/78 Code: 8480-6 BMI: 33.7 Code: 54715-3 Heart Rate 1: 60 bpm Height: 4'11" SpO2: 98% Temperature: 36.6 (C) / 97.9 (F) Weight: 167 lbs 08/27/2015 Blood Pressure 1: 164/82 Code: 8480-6 BMI: 32.3 Code: 23553-1 Heart Rate 1: 60 bpm Height: 4'11" SpO2: 93% Weight: 160 lbs 08/10/2015 Blood Pressure 1: 130/60 Code: 8480-6 BMI: 32.5 Code: 73895-5 Heart Rate 1: 64 bpm Height: 4'11" SpO2: 97% Weight: 161 lbs 07/28/2015 Blood Pressure 1: 124/68 Code: 8480-6 BMI: 32.5 Code: 14104-4 Heart Rate 1: 69 bpm Height: 4'11" SpO2: 97% Weight: 161 lbs 06/11/2015 Blood Pressure 1: 148/80 Code: 8480-6 BMI: 32.9 Code: 26944-4 Heart Rate 1: 70 bpm Height: 4'11" SpO2: 94% Weight: 163 lbs 03/19/2015 Blood Pressure 1: 150/102 Code: 8480-6 Blood Pressure 2: 152/92 Code: 8480-6 BMI: 32.5 Code: 56062-9 Heart Rate 1: 71 bpm Height: 4'11" SpO2: 96% Weight: 161 lbs 01/07/2015 Blood Pressure 1: 126/84 Code: 8480-6 Heart Rate 1: 80 bpm Height: 4'11" 09/23/2014 Blood Pressure 1: 112/72 Code: 8480-6 BMI: 33.9 Code: 04054-3 Heart Rate 1: 72 bpm Height: 4'11" Weight: 168 lbs 08/05/2014 Blood Pressure 1: 140/86 Code: 8480-6 BMI: 33.3 Code: 34117-5 Height: 4'11" Weight: 165 lbs 06/23/2014 Blood Pressure 1: 132/70 Code: 8480-6 BMI: 32.9 Code: 71064-2 Heart Rate 1: 58 bpm Height: 4'11" Temperature: 36.0 (C) / 96.8 (F) Weight: 163 lbs 06/05/2014 Blood Pressure 1: 121/85 Code: 8480-6 BMI: 34.3 Code: 43570-3 Height: 4'11" Weight: 170 lbs 04/03/2014 Blood Pressure 1: 128/80 Code: 8480-6 Heart Rate 1: 88 bpm Weight: 167 lbs 03/07/2014 Blood Pressure 1: 122/82 Code: 8480-6 BMI: 33.9 Code: 14009-4 Heart Rate 1: 68 bpm Height: 4'11" Weight: 168 lbs 11/21/2013 Blood Pressure 1: 100/58 Code: 8480-6 BMI: 33.7 Code: 20858-0 Heart Rate 1: 64 bpm Height: 4'11" Weight: 167 lbs 09/24/2013 Blood Pressure 1: 148/88 Code: 8480-6 Heart Rate 1: 68 bpm Weight: 09/19/2013 Blood Pressure 1: 120/80 Code: 8480-6 BMI: 33.9 Code: 87833-1 Heart Rate 1: 80 bpm Height: 4'11" Temperature: 36.9 (C) / 98.5 (F) Weight: 168 lbs 08/05/2013 Blood Pressure 1: 128/80 Code: 8480-6 BMI: 34.3 Code: 13152-5 Heart Rate 1: 64 bpm Height: 4'11" Temperature: 36.2 (C) / 97.2 (F) Weight: 170 lbs 07/10/2013 Blood Pressure 1: 120/84 Code: 8480-6 BMI: 36.0 Code: 10337-6 Heart Rate 1: 90 bpm Height: 4'11" SpO2: 97% Temperature: 36.8 (C) / 98.2 (F) Weight: 178 lbs 06/03/2013 Blood Pressure 1: 136/94 Code: 8480-6 BMI: 34.7 Code: 00774-8 Heart Rate 1: 68 bpm Height: 4'11" Temperature: 36.7 (C) / 98.0 (F) Weight: 172 lbs 05/13/2013 Blood Pressure 1: 132/90 Code: 8480-6 Heart Rate 1: 68 bpm 05/07/2013 Blood Pressure 1: 168/100 Code: 8480-6 BMI: 34.3 Code: 50331-4 Heart Rate 1: 76 bpm Height: 4'11" Weight: 170 lbs 12/03/2012 Blood Pressure 1: 142/78 Code: 8480-6 BMI: 33.5 Code: 86294-5 Heart Rate 1: 76 bpm Height: 4'11" Weight: 166 lbs 09/24/2012 Blood Pressure 1: 116/70 Code: 8480-6 Heart Rate 1: 68 bpm Respiratory Rate: 16 bpm Temperature: 36.9 (C) / 98.4 (F) Weight: 162 lbs 09/10/2012 Blood Pressure 1: 116/80 Code: 8480-6 BMI: 33.7 Code: 50945-8 Heart Rate 1: 76 bpm Height: 4'11" [...] 1: 149/85 Code: 8480-6 BMI: 32.9 Code: 63950-3 Heart Rate 1: 79 bpm Height: 4'11" Weight: 164 lbs 05/03/2011 Blood Pressure 1: 122/79 Code: 8480-6 BMI: 30.8 Code: 41424-3 Heart Rate 1: 72 bpm Height: 5'1" Weight: 163 lbs 04/25/2011 Blood Pressure 1: 137/84 Code: 8480-6 BMI: 31.0 Code: 87786-7 Heart Rate 1: 63 bpm Height: 5'1" Respiratory Rate: 20 bpm Weight: 164 lbs Functional Status No Functional Status data History of Present Illness Symptom Name Status Result Effective Date Notes Location in the left eye 10/08/2018 None [...] days ago 02/15/2012 while visiting mother in [place] had uti and was put on pyridum [...] surg in december. then took trip to [facility] to see mother and has had [...] Quality chronic 08/01/2011 states went shopping on [employer] over night without taking any of medications [...] data Encounters Encounter Performer Location Codes Date 86046 EST. PATIENT, LEVEL III Diagnosis: Other mucopurulent conjunctivitis, bilateral[ICD10: H10.023] Diagnosis: Other allergic rhinitis[ICD10: J30.89] Shahida Goldman MD, [facility] CPT-4: 92844 10/08/2018 03671 EST. PATIENT, LEVEL III Diagnosis: Essential (primary) hypertension[ICD10: I10] Diagnosis: Generalized anxiety disorder[ICD10: F41.1] Isabelle Goldman MD, [facility] CPT-4: 50667 07/16/2018 ([id number]) 26596 EST. PATIENT, LEVEL III Diagnosis: Acute recurrent maxillary sinusitis[ICD10: J01.01] Diagnosis: Frequency of micturition[ICD10: R35.0] Diagnosis: Low back pain[ICD10: M54.5] Shahida Goldman MD, [facility] CPT-4: 35985 07/10/2018 ([id number]) 01342 EST. PATIENT, LEVEL III Diagnosis: Acute recurrent maxillary sinusitis[ICD10: J01.01] [facility] CPT-4: 55198 05/28/2018 ([id number]) Miscellaneous no charge Diagnosis: Laceration without foreign body, left lower leg, subsequent encounter[ICD10: S81.812D] Diagnosis: Laceration without foreign body, right lower leg, subsequent encounter[ICD10: S81.811D] [facility] CPT-4: 77822 02/08/2018 65458 EST. PATIENT, LEVEL III Diagnosis: Cellulitis of left lower limb[ICD10: L03.116] Diagnosis: Cellulitis of right lower limb[ICD10: L03.115] Diagnosis: Laceration without foreign body, left lower leg, initial encounter[ICD10: S81.812A] Diagnosis: Laceration without foreign body, right lower leg, initial encounter[ICD10: S81.811A] Isabelle Goldman MD, [facility] CPT-4: 19208 02/07/2018 ([id number]) 81260 EST. PATIENT, LEVEL IV Diagnosis: Primary generalized (osteo)arthritis[ICD10: M15.0] Diagnosis: Acute recurrent maxillary sinusitis[ICD10: J01.01] Diagnosis: Low back pain[ICD10: M54.5] Diagnosis: Other allergic rhinitis[ICD10: J30.89] Diagnosis: Obstructive sleep apnea (adult) (pediatric)[ICD10: G47.33] Shahida Goldman MD, [facility] CPT-4: 05716 01/19/2018 19747 EST. PATIENT, LEVEL IV Diagnosis: Diarrhea, unspecified[ICD10: R19.7] Diagnosis: Generalized abdominal pain[ICD10: R10.84] Diagnosis: Other allergic rhinitis[ICD10: J30.89] Diagnosis: Other acute sinusitis[ICD10: J01.80] Isabelle Goldman MD, [facility] CPT- 4: 31560 09/12/2017 46742 EST. PATIENT, LEVEL III Diagnosis: Acute laryngopharyngitis[ICD10: J06.0] Diagnosis: Other allergic rhinitis[ICD10: J30.89] Diagnosis: Cough[ICD10: R05] Diagnosis: Wheezing[ICD10: R06.2] Isabelle Goldman MD, [facility] CPT-4: 33377 07/25/2017 ([id number]) 08936 EST. PATIENT, LEVEL IV Diagnosis: Acute recurrent maxillary sinusitis[ICD10: J01.01] Diagnosis: Cervicalgia[ICD10: M54.2] Diagnosis: Diarrhea, unspecified[ICD10: R19.7] Shahida Goldman MD, [facility] CPT-4: 20078 06/27/2017 ([id number]) 24261 EST. PATIENT, LEVEL III Diagnosis: Chronic maxillary sinusitis[ICD10: J32.0] Diagnosis: Gastro-esophageal reflux disease without esophagitis[ICD10: K21.9] Shahida Goldman MD, [facility] CPT-4: 95328 05/08/2017 ([id number]) 18212 EST. PATIENT, LEVEL III Diagnosis: Acute recurrent maxillary sinusitis[ICD10: J01.01] Shahida Goldman MD, [facility] CPT-4: 15166 03/14/2017 19878 EST. PATIENT, LEVEL IV Diagnosis: Epigastric pain[ICD10: R10.13] Diagnosis: Left upper quadrant pain[ICD10: R10.12] Diagnosis: Left lower quadrant pain[ICD10: R10.32] Isabelle Goldman MD, [facility] CPT-4: 92103 02/20/2017 ([id number]) 07950 EST. PATIENT, LEVEL IV Diagnosis: Generalized anxiety disorder[ICD10: F41.1] Diagnosis: Major depressive disorder, recurrent, moderate[ICD10: F33.1] Diagnosis: Left upper quadrant pain[ICD10: R10.12] Diagnosis: Epigastric pain[ICD10: R10.13] Diagnosis: Actinic keratosis[ICD10: L57.0] Melba Goldman MD, [facility] CPT-4: 62872 02/06/2017 ([id number]) 28035 EST. PATIENT, LEVEL III Diagnosis: Actinic keratosis[ICD10: L57.0] Diagnosis: Major depressive disorder, recurrent, moderate[ICD10: F33.1] Melba Goldman MD, [facility] CPT-4: 85152 12/05/2016 ([id number]) 33074 EST. PATIENT, LEVEL III Diagnosis: Acute recurrent maxillary sinusitis[ICD10: J01.01] Diagnosis: Dysuria[ICD10: R30.0] Shahida Goldman MD, [facility] CPT-4: 80963 11/28/2016 61914 EST. PATIENT, LEVEL IV Diagnosis: Other acute sinusitis[ICD10: J01.80] Diagnosis: Acute laryngopharyngitis[ICD10: J06.0] Diagnosis: Other allergic rhinitis[ICD10: J30.89] Isabelle Goldman MD, [facility] CPT- 4: 09366 08/15/2016 ([id number]) 60777 EST. PATIENT, LEVEL III Diagnosis: Acute recurrent maxillary sinusitis[ICD10: J01.01] Diagnosis: Low back pain[ICD10: M54.5] Shahida Goldman MD, [facility] CPT-4: 74964 06/07/2016 ([id number]) Miscellaneous no charge Diagnosis: Essential (primary) hypertension[ICD10: I10] Shahida Goldman MD, [facility] CPT-4: 33091 03/15/2016 02635 EST. PATIENT, LEVEL IV Diagnosis: Essential (primary) hypertension[ICD10: I10] Diagnosis: Headache[ICD10: R51] Diagnosis: Generalized anxiety disorder[ICD10: F41.1] Shahida Goldman MD, [facility] CPT-4: 15820 03/14/2016 19309 EST. PATIENT, LEVEL III Diagnosis: Laceration without foreign body, left lower leg, initial encounter[ICD10: S81.812A] Isabelle Goldman MD, [facility] CPT-4: 28144 02/22/2016 ([id number]) 63801 EST. PATIENT, LEVEL III Diagnosis: Acute recurrent maxillary sinusitis[ICD10: J01.01] Diagnosis: Cough[ICD10: R05] Diagnosis: Allergic rhinitis due to pollen[ICD10: J30.1] Shahida Goldman MD, [facility] CPT-4: 73358 12/07/2015 ([id number]) 22914 EST. PATIENT, LEVEL IV Diagnosis: Essential (primary) hypertension[ICD10: I10] Diagnosis: Acute recurrent maxillary sinusitis[ICD10: J01.01] Diagnosis: Generalized anxiety disorder[ICD10: F41.1] Diagnosis: Cervicalgia[ICD10: M54.2] Diagnosis: Generalized intra-abdominal and pelvic swelling, mass and lump[ICD10: R19.07] Melba Goldman MD, [facility] CPT-4: 60136 11/24/2015 45719 EST. PATIENT, LEVEL III Diagnosis: Other migraine, intractable, without status migrainosus[ICD10: G43.819] Isabelle Goldman MD, [facility] CPT-4: 25722 08/27/2015 83690 EST. PATIENT, LEVEL III Diagnosis: Acute recurrent maxillary sinusitis[ICD10: J01.01] Diagnosis: Candidal stomatitis[ICD10: B37.0] Diagnosis: Acute laryngopharyngitis[ICD10: J06.0] Isabelle Goldman MD, [facility] CPT- 4: 40956 08/10/2015 79563 EST. PATIENT, LEVEL III Diagnosis: Superficial foreign body of left hand, initial encounter[ICD10: S60.552A] Melba Goldman MD, [facility] CPT-4: 39228 07/28/2015 ([id number]) 93979 EST. PATIENT, LEVEL III Diagnosis: Essential (primary) hypertension[ICD10: I10] Diagnosis: Tinea cruris[ICD10: B35.6] Diagnosis: Abnormal levels of other serum enzymes[ICD10: R74.8] Shahida Goldman MD, [facility] CPT-4: 70077 06/11/2015 ([id number]) 57948 EST. PATIENT, LEVEL IV Diagnosis: ESSENTIAL HYPERTENSION[ICD9: 401.9] Diagnosis: Hypothyroid[ICD9: 244.9] Diagnosis: ALLERGIC RHINITIS[ICD9: 477.9] Diagnosis: Anxiety[ICD9: 300.00] Diagnosis: Sleep apnea[ICD9: 780.57] Shahida Goldman MD, [facility] CPT-4: 69845 03/19/2015 ([id number]) 85371 EST. PATIENT, LEVEL III Diagnosis: ACUTE SINUSITIS[ICD9: 461.9] Celi Goldman MD, [facility] CPT-4: 45399 01/07/2015 ([id number]) 63900 EST. PATIENT, LEVEL III Diagnosis: Conjunctivitis[ICD9: 372.30] Shahida Goldman MD, [facility] CPT-4: 19254 09/23/2014 41148 EST. PATIENT, LEVEL II Diagnosis: Noninfected skin tear of leg[ICD9: 891.0] Shahida Goldman MD, [facility] CPT-4: 73006 08/05/2014 ([id number]) 55432 EST. PATIENT, LEVEL III Diagnosis: Chronic maxillary sinusitis[ICD9: 473.0] Shahida Goldman MD, [facility] CPT-4: 25382 06/23/2014 97053 EST. PATIENT, LEVEL II Diagnosis: Headache[ICD9: 784.0] Shahida Goldman MD, [facility] CPT-4: 83187 06/05/2014 ([id number]) 08707 EST. PATIENT, LEVEL III Diagnosis: Abrasion of right leg[ICD9: 916.0] Diagnosis: Headache[ICD9: 784.0] Diagnosis: ALLERGIC RHINITIS[ICD9: 477.9] Shahida Goldman MD, [facility] CPT-4: 58756 04/03/2014 16414 EST. PATIENT, LEVEL II Diagnosis: Tinea corporis[ICD9: 110.5] Diagnosis: Exposure to scabies[ICD9: V01.89] Shahida Goldman MD, [facility] CPT- 4: 86603 03/07/2014 ([id number]) 33330 EST. PATIENT, LEVEL III Diagnosis: ESSENTIAL HYPERTENSION[SNOMED: 23595397] Diagnosis: OSTEOARTH NOS-UNSPEC[ICD9: 715.90] Diagnosis: Lumbago[ICD9: 724.2] Diagnosis: Cervicalgia[ICD9: 723.1] Shahida Goldman MD, [facility] CPT-4: 46901 11/21/2013 ([id number]) 73462 EST. PATIENT, LEVEL III Diagnosis: DEPRESSIVE DISORDER NEC[ICD9: 311] Diagnosis: Paronychia[ICD9: 681.9] Melba Goldman MD, [facility] CPT-4: 97028 09/24/2013 ([id number]) 35059 EST. PATIENT, LEVEL III Diagnosis: Paronychia[ICD9: 681.9] Diagnosis: Cellulitis[ICD9: 682.9] Melba Goldman MD, [facility] CPT-4: 24733 09/19/2013 ([id number]) 22388 EST. PATIENT, LEVEL III Diagnosis: Conjunctivitis[ICD9: 372.30] Diagnosis: Thrush[ICD9: 112.0] Shahida Goldman MD, [facility] CPT-4: 01850 08/05/2013 ([id number]) 59576 EST. PATIENT, LEVEL III Diagnosis: ACUTE MAXILLARY SINUSITIS[ICD9: 461.0] Diagnosis: COUGH[ICD9: 786.2] Diagnosis: Insomnia[ICD9: 780.52] Diagnosis: ESOPHAGEAL REFLUX[ICD9: 530.81] Melba Goldman MD [facility] CPT-4: 71440 07/10/2013 ([id number]) Miscellaneous no charge Diagnosis: ESSENTIAL HYPERTENSION[SNOMED: 03355624] Melba Goldman MD [facility] CPT-4: 17418 05/13/2013 ([id number]) 56955 EST. PATIENT, LEVEL IV Diagnosis: ESSENTIAL HYPERTENSION[SNOMED: 64131660] Diagnosis: HYPOTHYROIDISM[ICD9: 244.9] Diagnosis: OSTEOARTH NOS-UNSPEC[ICD9: 715.90] Melba Goldman MD [facility] CPT- 4: 40359 05/07/2013 ([id number]) 67810 EST. PATIENT, LEVEL IV Diagnosis: Osteoarthritis[ICD9: 715.90] Diagnosis: Knee pain, bilateral[ICD9: 719.46] Diagnosis: Hip pain[ICD9: 719.45] Melba Goldman MD [facility] CPT-4: 97491 12/03/2012 ([id number]) 77442 EST. PATIENT, LEVEL III Diagnosis: Thrush[ICD9: 112.0] Melba Goldman MD [facility] CPT-4: 68202 09/24/2012 ([id number]) 23280 EST. PATIENT, LEVEL IV Diagnosis: ESSENTIAL HYPERTENSION[SNOMED: 65824975] Diagnosis: Thrush[ICD9: 112.0] Diagnosis: Sleep apnea[ICD9: 780.57] Melba Goldman MD [facility] CPT-4: 34361 09/10/2012 ([id number]) 39433 EST. PATIENT, LEVEL IV Diagnosis: Esophageal reflux[ICD9: 530.81] Diagnosis: Hypothyroid[ICD9: 244.9] Diagnosis: JOINT PAIN-MULT JOINTS[ICD9: 719.49] Diagnosis: ALLERGIC RHINITIS[ICD9: 477.9] Melba Goldman MD [facility] CPT-4: 81365 08/08/2012 ([id number]) 30507 EST. PATIENT, LEVEL IV Diagnosis: Urinary frequency[ICD9: 788.41] Diagnosis: EDEMA[ICD9: 782.3] Diagnosis: HYPOTHYROIDISM[ICD9: 244.9] Diagnosis: Fatigue[ICD9: 780.79] Melba Goldman MD, [facility] CPT-4: 91885 02/15/2012 ([id number]) 79903 EST. PATIENT, LEVEL IV Diagnosis: Abdominal pain[ICD9: 789.00] Diagnosis: Fatigue[ICD9: 780.79] Diagnosis: Nausea[ICD9: 787.02] Melba Goldman MD, [facility] CPT-4: 15977 11/10/2011 [id number] EST. PATIENT, LEVEL IV Diagnosis: ESSENTIAL HYPERTENSION[SNOMED: 20569265] Diagnosis: DIARRHEA[ICD9: 787.91] Diagnosis: DEPRESSIVE DISORDER NEC[ICD9: 311] Diagnosis: Irritable bowel disease[ICD9: 564.1] Melba Goldman MD, [facility] CPT- 4: 53685 08/01/2011 [id number] EST. PATIENT, LEVEL III Diagnosis: ACUTE SINUSITIS[ICD9: 461.9] Diagnosis: Cough[ICD9: 786.2] Shahida Goldman MD, [facility] CPT-4: 25643 07/14/2011 [id number] EST. PATIENT, LEVEL IV Diagnosis: VACCIN FOR INFLUENZA[ICD9: V04.81] Diagnosis: ESSENTIAL HYPERTENSION[SNOMED: 46747294] Diagnosis: GENERALIZED ANXIETY DISEASE[ICD9: 300.02] Diagnosis: SLEEP DISTURBANCES[ICD9: 780.50] Shahida Goldman MD, [facility] CPT- 4: 28390 05/23/2011 [id number] EST. PATIENT, LEVEL III Diagnosis: ACUTE SINUSITIS[ICD9: 461.9] Diagnosis: ALLERGIC RHINITIS[ICD9: 477.9] Diagnosis: Cough[ICD9: 786.2] Shahida Goldman MD, [facility] CPT-4: 66653 05/03/2011 [id number] EST. PATIENT, LEVEL IV Diagnosis: ESSENTIAL HYPERTENSION[SNOMED: 35275220] Diagnosis: DEPRESSIVE DISORDER NEC[ICD9: 311] Diagnosis: Fatigue[ICD9: 780.79] Shahida Goldman MD, [facility] CPT-4: 71269 04/25/2011 Plan of Care Planned Activity Notes Codes Status Date Visit Plan: Conjunctivitis - rx for eye drops/lube sent electronically to the patient's pharmacy. The patient has been instructed to cleanse affected eye with warm washcloth, then place medication into affected eye four times daily. 10/08/2018 Appointment: Shahida Manzo WPtel: [phone] [phone] (30 min) Complex 10/08/2018 Patient Education: Patient Medication Summary Completed 10/08/2018 Appointment: [phone] (15 min) Moderate 07/30/2018 Visit Plan: Anxiety [...] acute concerns. 07/16/2018 Appointment: Isabelle Orozco WPtel: [facility] (15 min) Moderate 07/16/2018 Patient Education: Patient [...] over-medication. 07/10/2018 Appointment: Shah[phone] (15 min) Moderate 07/10/2018 Patient Education: Patient Medication Summary Completed 07/10/2018 Patient Education: Back Pain Completed 07/10/2018 Visit Plan: Sinusitis - Pt has acute infection - pain in face, maxillary region, Pt informed to use decongestant, RX given to patient, sinus rinses also recommended. Call if symptoms do not show improvement. 05/28/2018 Appointment: Shah[phone] (30 min) Complex 05/28/2018 Patient Education: Patient [...] concerns. 02/07/2018 Appointment: Isabelle Orozco [phone] (15 min) Moderate 02/07/2018 Patient Education: Patient [...] less fatigue 01/19/2018 Appointment: Shahida Manzo WPtel: [address] [place], [place] [phone] (15 min) Moderate 01/19/2018 Patient Education: Patient [...] surrogate. 11/23/2017 Appointment: Isabelle Orozco WPtel: [phone] [facility] [facility] - Annual Wellness Visit [...] improvement. 09/12/2017 Appointment: Isabel[facility]rozco [facility] (15 min) Moderate 09/12/2017 Patient Education: Patient [...] spray. 07/25/2017 Appointment: Isabel[facility] Orozco [phone] (30 min) Complex 07/25/2017 Patient Education: Patient [...] are available 06/27/2017 Appointment: Shahida Man[phone] (15 min) Moderate 06/27/2017 Patient Education: Patient [...] improving. 05/08/2017 Appointment: Shahida Manzo WPtel: [phone] [phone] (15 min) Moderate 05/08/2017 Patient Education: Patient [...] improvement. 03/14/2017 Appointment: Shahida Manzo WPtel: [phone] [phone] (15 min) Moderate 03/14/2017 Patient Education: Patient Medication Summary Completed 03/14/2017 Appointment: Shahida Manzo WPtel: [phone] [phone] (15 min) Moderate 02/21/2017 Visit Plan: Abdominal [...] improving. 02/20/2017 Appointment: Isabel[facility]roz[phone] (30 min) Complex 02/20/2017 Patient Education: Patient [...] use 02/06/2017 Appointment: Melba Goldman WPtel: [phone] [facility] (15 min) Moderate 02/06/2017 Patient Education: [...] patient. 12/05/2016 Appointment: Melba Goldman WPtel: [phone] [facility] Surgical Procedure 12/05/2016 Patient Education: Patient Medication Summary Completed 12/05/2016 Visit Plan: Sinusitis - Pt has acute infection - pain in face, maxillary region, Pt informed to use decongestant, RX given to patient, sinus rinses also recommended. Call if symptoms do not show improvement. Dysuria- culture urine 11/28/2016 Appointment: Shahida Manzo [facility]el[phone] (15 min) Moderate 11/28/2016 Patient Education: [...] control. 11/07/2016 Appointment: Isabelle Orozco [facility]el[phone] [facility] - Annual Wellness Visit 11/07/2016 [...] allergy spray. 08/15/2016 Appointment: Isabelle Orozco WPtel: [facility] (15 min) Moderate 08/15/2016 Patient Education: Patient [...] pain use. 06/07/2016 Appointment: Shahida Manzo WPtel: [phone] (10 min) Simple 06/07/2016 Patient Education: Patient [...] office today 03/14/2016 Appointment: Shahida Manzo WPtel: [phone] [phone] (15 min) Moderate 03/14/2016 Patient Education: Patient Medication Summary Completed 03/14/2016 Care Plan: COMPLETE CBC AUTOMATED LOINC : 10344-0 Pending 03/14/2016 Visit Plan: Cellulitis - The patient was instructed in appropriate wound care. The patient was instructed to use the antibiotic ointment as per RX. The patient is to call for any change in symptoms, increase in size of the lesion, increase in pain. 02/22/2016 Appointment: Isabelle Orozco WPtel: 101 [facility] (15 min) Moderate 02/22/2016 Patient Education: Patient [...] dr. dai 11/24/2015 Appointment: [facility] ([facility] min) Complex 11/24/2015 Patient Education: Patient Medication Summary Completed 11/24/2015 Patient Education: Obesity Completed 11/24/2015 Patient Education: Hypertension Completed 11/24/2015 Patient Education: .Cervicalgia Neck Pain Completed 11/24/2015 Care Plan: Referral Order SNOMED-CT : [id number] Ordered 11/24/2015 Visit Plan: Acute Migraine - [...] 06/11/2015 Appointment: Shahida Manzo WPtel: [phone] (15 min) Moderate 06/11/2015 Patient Education: Patient [...] OFFICE Sleep apnea-patient needs new CPAP-will contact [facility] Pt reports that she uses [...] OFFICE Sleep apnea-patient needs new CPAP-will contact [facility] 03/19/2015 Visit Plan: Hypertension - [...] OFFICE Sleep apnea-patient needs new CPAP-will contact [facility] Pt reports that she uses [...] Patient Medication Summary Completed 01/07/2015 Patient Education: [facility] - Saving AutoInj - 18+ - Dynamic [...] areas dry Exposure to scabies-RX sent to [facility] pharmacy. 03/07/2014 Appointment: Melba Goldman WPtel: [address] [place], [place] [phone] [place] rash 03/07/2014 Patient Education: Patient Medication [...] change in blood pressure readings at home. Mxdbyzo-zczfbdpueer-xnmepfvb duragesic patch-appt with Dr Ortiz for pain management 11/21/2013 Appointment: Shahida Manzo WPtel: [address] [place], [place] [phone] [place] Follow up 11/21/2013 Patient Education: Patient Medication Summary Completed 11/21/2013 Patient Education: Hypertension Completed 11/21/2013 Patient Education: .Cervicalgia Neck Pain Completed 11/21/2013 Appointment: Melba Goldman WPtel: [address] [place], [place] [phone] Other 11/19/2013 Appointment: Melba Goldman WPtel: [address] [place], [place] [phone] Follow up 11/06/2013 Appointment: Melba Goldman WPtel: [address] [place], [place] [phone] Lab Draw 10/15/2013 Patient Education: Patient Medication [...] BEDTIME 09/24/2013 Appointment: Shahida Manzo WPtel: [facility] [address] Other 09/24/2013 Patient Education: Patient Medication Summary Completed 09/24/2013 Visit Plan: Paronychia/Cellulitis - continue with oral antibiotics as previously directed, return to clinic as previously directed, call for acute change in symptoms, worsening redness, warmth, discharge. 09/19/2013 Appointment: Melba Goldman WPtel: [address] [place], [place] [phone] Other 09/19/2013 Patient Education: Patient Medication Summary Completed 09/19/2013 Visit Plan: Conjunctivitis - rx for eye drops/lube sent electronically to the patient's pharmacy. The patient has been instructed to cleanse affected eye with warm washcloth, then place medication into affected eye four times daily. Thrush-refill nystatin-call if symptoms do not resolve 08/05/2013 Appointment: Shahida Manzo WPtel: [address] [place], [place] [phone] [facility] 08/05/2013 Patient Education: Patient Medication Summary [...] show improvement. 06/03/2013 Appointment: Melba Goldman [facility]el[facility] [facility] 06/03/2013 Patient Education: Patient Medication Summary Completed 06/03/2013 Patient Education: Hypertension Completed 06/03/2013 Appointment: [phone] [place] Nurse Visit 05/13/2013 Patient Education: [...] of control. 05/07/2013 Appointment: Melba Goldman WPtel: [facility] Follow up 05/07/2013 Patient Education: Patient Medication Summary Completed 05/07/2013 Patient Education: Hypertension Completed 05/07/2013 Patient Education: Patient Medication Summary Completed 04/30/2013 Patient Education: Hypertension Completed 04/30/2013 Visit Plan: Arthritis- occasionally uncontrolled symptoms- recommend pt to take antiinflammatory as directed for pain control. Use tylenol for break through pain symptoms. 12/03/2012 Appointment: Melba Goldman WPtel: [address] [place], [place] [phone] Follow up 12/03/2012 Patient Education: Patient Medication [...] not resolve 09/24/2012 Appointment: Shahida Manzo WPtel: [phone] [place] [address] 09/24/2012 Patient Education: Patient Medication Summary Completed [...] diflucan 09/10/2012 Appointment: [phone] Follow [facility] 09/10/2012 Patient Education: Patient [...] symptoms. 08/08/2012 Appointment: Shahida Manzo [facility]el[phone] Follow up 08/08/2012 Patient Education: Patient Medication Summary Completed 08/08/2012 Patient Education: Patient Medication Summary Completed 08/07/2012 Patient Education: Hypertension Completed 08/07/2012 Appointment: Melba Goldman WPtel: [phone] [facility]6[address] Lab Draw 02/16/2012 Patient Education: Patient Medication [...] Needs labs. 02/15/2012 Appointment: Melba Goldman WPtel: [facility]6 [facility] Other 02/15/2012 Patient Education: Patient Medication Summary Completed 02/15/2012 Visit Plan: Abdominal pain - ultrasound tomorrow AM nothing to eat before the ultrasound from 11pm tonight bland diet. Nausea - worse with fatty foods, recommended low fat/bland diet, call if symptoms worsening. 11/10/2011 Appointment: Melba Goldman WPtel: [facility]6[address] Other 11/10/2011 Patient Education: Patient Medication Summary [...] stools. 08/01/2011 Appointment: Melba Goldman WPtel: [phone] [facility] Other 08/01/2011 Patient Education: Patient Medication Summary Completed 08/01/2011 Patient Education: High Blood Pressure: Essential Hypertension Completed 08/01/2011 Visit Plan: Sinusitis - Pt has acute infection - pain in face, maxillary region, Pt informed to use decongestant, RX given to patient, sinus rinses also recommended. Call if symptoms do not show improvement. Cough- kishore zurita 07/14/2011 Appointment: Shahida Manzo WPtel: [phone] [phone] [place] Other 07/14/2011 Patient Education: Patient Medication [...] the office. 05/23/2011 Appointment: Shahida Manzo WPtel: [phone] [phone] Other 05/23/2011 Patient Education: Patient Medication Summary [...] cough med 05/03/2011 Appointment: Shahida Manzo [facility]Ptel: [phone] Other 05/03/2011 Patient Education: Patient Medication Summary [...] her symptoms. 04/25/2011 Appointment: Shahida Manzo WPtel: [phone] Other 04/25/2011 Patient Education: Patient Medication Summary [...] OFFICE Sleep apnea-patient needs new CPAP-will contact [facility] Pt reports that she uses [...] change in symptoms, worsening redness, warmth, discharge. TAPER OFF OF CYMBALTA-TAKE EVERY OTHER DAY [...] OFFICE Sleep apnea-patient needs new CPAP-will contact [facility] patient . Medicare Exam - today we discussed [...] OFFICE Sleep apnea-patient needs new CPAP-will contact [facility] Pt reports that she uses [...] office if the symptoms are not improving. Gentamicin nasal spray to [facility] [...] fitted lindsay. Thrush- treating with diflucan . Abdominal pain - ultrasound tomorrow AM nothing to eat before the ultrasound from 11pm tonight bland diet. Nausea - worse with fatty foods, recommended low fat/bland diet, call if symptoms worsening. . Tinea-discussed natural and expected course of this diagnosis and to alert me if symtpoms do not follow expect course, or if any worse. RX sent to patient's pharmacy. Keep areas dry [facility] scabies[facility] rocephin/kenalog . Sinusitis - Pt has [...] daily-dose given in the office today . DX sinusitis - discussed expected course [...] provided for patient. Cough-refill cough med . URI - Pt advised to increase [...] change in blood pressure readings at home. Cpoxmmb-dnlzejffxtp-fvfycvnr duragesic patch-appt with Dr Ortiz for pain [...] if symptoms do not show improvement. Rocephin and Kenalog . Arthritis- occasionally uncontrolled [...]
--- OUTSIDE RECORDS SUMMARY | 2019-03-08 16:28 | XMS REPORT | CCD ---
Author Author [facility] Address [address] [place] [address] Phone Care Team Providers Care Orthopedic Nurse Practitioner Name Role Phone PP Unavailable CCM Unavailable Summary Purpose Interface Exchange Insurance Providers Payer name Policy type / Coverage type Covered constitution party ID Effective Begin Date Effective End Date [employer] Medicare Part B [id number] Unknown Family history Son Diagnosis Age At Onset Crohn's disease Unknown Brother Diagnosis Age At Onset Cardiovascular disease Unknown Mother Diagnosis Age At Onset Hypertension Unknown Father Diagnosis Age At Onset Cardiovascular disease Unknown Social History Social History Element Codes Description Effective Dates Marital status Unknown 04/22/2011 Number of children Unknown 3 1 son -Crohns 04/22/[address]: 959588375 Nonsmoker 04/22/2011 Allergies, Adverse Reactions, Alerts Substance [...] Start Date Stop Date Status Fill Instructions polymyxin B sulfate 10,000 unit-trimethoprim 1 mg/mL eye drops RxNorm: 073428 2 Drop(s) ophthalmic (eye) QID 10/08/2018 10/14/2018 Active hydrocodone 10 mg-acetaminophen 325 mg tablet RxNorm: 624452 Tablet(s) PO TAKE ONE TO TWO TABLETS BY MOUTH EVERY 6 HOURS NEEDED FOR PAIN 09/11/2018 09/25/2018 Inactive piroxicam 20 mg capsule RxNorm: 202791 TAKE ONE CAPSULE BY MOUTH DAILY 08/09/2018 01/05/2019 Active trazodone 50 mg tablet RxNorm: 063530 TAKE ONE AND ONE-HALF (1 1/2) TABLET BY MOUTH AT BEDTIME. MAY INCREASE TO 2 TABLETS AT BEDTIME NEEDED 08/02/2018 11/19/2018 Active Nexium 40 mg capsule,delayed release RxNorm: 948022 TAKE ONE CAPSULE BY MOUTH TWICE A DAY 07/23/2018 11/19/2018 Active Bystolic 5 mg tablet RxNorm: 465221 1 Tablet(s) PO daily to take with 10 mg daily to equal 15mg daily 07/17/2018 No Stop Date Active alprazolam 0.25 mg tablet RxNorm: 559265 1 Tablet(s) PO TID as needed 07/16/2018 10/13/2018 Active hydrocodone 10 mg-acetaminophen 325 mg tablet RxNorm: 922091 Tablet(s) PO TAKE ONE TO TWO TABLETS BY MOUTH EVERY 6 HOURS NEEDED FOR PAIN 07/10/2018 07/24/2018 Inactive prednisone 20 mg tablet RxNorm: 383553 1 Tablet(s) PO BID 07/10/2018 07/14/2018 Inactive Phenergan with Codeine Syrup RxNorm: 5-10 Milliliter(s) PO Q6 PRN 06/28/2018 No Stop Date Active prednisone 20 mg tablet RxNorm: 040890 2 Tablet(s) PO daily 05/31/2018 06/04/2018 Inactive prednisone 20 mg tablet RxNorm: 527377 2 Tablet(s) PO daily 05/31/2018 05/30/2018 Inactive ceftriaxone 500 mg solution for injection RxNorm: 1249905 Inj 05/28/2018 05/28/2018 Inactive doxycycline hyclate 100 mg tablet RxNorm: 9138628 1 Tablet(s) PO BID 05/28/2018 06/06/2018 Inactive Kenalog 40 mg/mL suspension for injection RxNorm: 2119832 Milliliter(s) Inj 05/28/2018 05/28/2018 Inactive hydrocodone 10 mg-acetaminophen 325 mg tablet RxNorm: 006168 Tablet(s) PO TAKE ONE TO TWO TABLETS BY MOUTH EVERY 6 HOURS NEEDED FOR PAIN 05/09/2018 05/23/2018 Inactive alprazolam 0.25 mg tablet RxNorm: 541573 1 Tablet(s) PO daily as needed 04/25/2018 07/15/2018 Inactive Bystolic 10 mg tablet RxNorm: 848443 TAKE ONE TABLET BY MOUTH DAILY 04/16/2018 09/12/2018 Inactive hydrocodone 10 mg-acetaminophen 325 mg tablet RxNorm: 604692 Tablet(s) PO TAKE ONE TO TWO TABLETS BY MOUTH EVERY 6 HOURS NEEDED FOR PAIN 03/06/2018 03/20/2018 Inactive trazodone 50 mg tablet RxNorm: 814835 TAKE ONE AND ONE-HALF (1 1/2) TABLET BY MOUTH AT BEDTIME. MAY INCREASE TO 2 TABLETS AT BEDTIME NEEDED 02/23/2018 06/12/2018 Inactive mupirocin 2 % topical ointment RxNorm: 449705 1 TOP BID 02/09/2018 05/27/2018 Inactive Zofran 4 mg tablet RxNorm: 380761 1 Tablet(s) PO TID as needed 02/08/2018 No Stop Date Active Keflex 500 mg capsule RxNorm: 974004 1 Capsule(s) PO TID 02/07/2018 02/13/2018 Inactive alprazolam 0.25 mg tablet RxNorm: 802085 1 Tablet(s) PO daily as needed 01/24/2018 07/09/2018 Inactive hydrocodone 10 mg-acetaminophen 325 mg tablet RxNorm: 328165 Tablet(s) PO TAKE ONE TO TWO TABLETS BY MOUTH EVERY 6 HOURS NEEDED FOR PAIN 01/19/2018 02/02/2018 Inactive hydrochlorothiazide 25 mg tablet RxNorm: 430166 Tablet(s) TAKE ONE TABLET BY MOUTH DAILY 01/19/2018 01/19/2018 Inactive Kenalog 40 mg/mL suspension for injection RxNorm: 3953681 1 Milliliter(s) Inj 01/19/2018 01/19/2018 Inactive piroxicam 20 mg capsule RxNorm: 988849 1 Capsule(s) PO daily 01/19/2018 07/17/2018 Inactive D/C ORDER FOR HCTZ ceftriaxone 500 mg solution for injection RxNorm: 1274807 500 Milligram(s) Inj 01/19/2018 01/19/2018 Inactive Nexium 40 mg capsule,delayed release RxNorm: 228596 TAKE ONE CAPSULE BY MOUTH TWICE A DAY 01/18/2018 04/17/2018 Inactive Nexium 40 mg capsule,delayed release RxNorm: 046502 TAKE ONE CAPSULE BY MOUTH TWICE A DAY 01/15/2018 04/14/2018 Inactive ciprofloxacin 0.3 % eye drops RxNorm: 663122 2 Drop(s) ophthalmic (eye) Q2H while awake x 2 days, then Q4H x 5 days 11/23/2017 05/27/2018 Inactive Keflex 500 mg capsule RxNorm: 115489 1 Capsule(s) PO TID 11/23/2017 11/29/2017 Inactive hydrocodone 10 mg-acetaminophen 325 mg tablet RxNorm: 253138 Tablet(s) PO TAKE ONE TO TWO TABLETS BY MOUTH EVERY 6 HOURS NEEDED FOR PAIN 10/30/2017 11/13/2017 Inactive Augmentin 500 mg-125 mg tablet RxNorm: 328176 1 Tablet(s) PO TID 10/27/2017 11/05/2017 Inactive alprazolam 0.25 mg tablet RxNorm: 276722 1 Tablet(s) PO daily as needed 10/26/2017 04/24/2018 Inactive trazodone 50 mg tablet RxNorm: 552778 TAKE ONE AND ONE-HALF (1 1/2) TABLET BY MOUTH AT BEDTIME. MAY INCREASE TO 2 TABLETS AT BEDTIME NEEDED 09/25/2017 02/03/2018 Inactive Lexapro 20 mg tablet RxNorm: 803994 TAKE ONE AND ONE-HALF TABLET BY MOUTH DAILY 09/15/2017 09/09/2018 Inactive Flagyl 500 mg tablet RxNorm: 465147 1 Tablet(s) PO TID 09/12/2017 09/21/2017 Inactive promethazine 25 mg tablet RxNorm: 221702 1 Tablet(s) PO TID as needed nausea and vomitting THIS WILL MAKE YOU SLEEPY 09/12/2017 11/08/2017 Inactive Keflex 500 mg capsule RxNorm: 440607 1 Capsule(s) PO QID 08/25/2017 08/31/2017 Inactive [SAVINGS FOR UNINSURED PATIENTS -- [id number], PCN: [id number], Group: [id number], ID# [id number], Process claim through [employer], for questions: . THIS IS NOT INSURANCE.] alprazolam 0.25 mg tablet RxNorm: 342424 1 Tablet(s) PO daily as needed 07/31/2017 04/24/2018 Inactive prednisone 20 mg tablet RxNorm: 912920 2 Tablet(s) PO daily 07/25/2017 07/29/2017 Inactive Augmentin 500 mg-125 mg tablet RxNorm: 825385 1 Tablet(s) PO TID 07/25/2017 08/03/2017 Inactive trazodone 50 mg tablet RxNorm: 480774 TAKE ONE AND ONE-HALF (1 1/2) TABLET BY MOUTH AT BEDTIME. MAY INCREASE TO 2 TABLETS AT BEDTIME NEEDED 06/30/2017 09/03/2017 Inactive Bystolic 10 mg tablet RxNorm: 384148 TAKE ONE TABLET BY MOUTH DAILY 06/30/2017 2017 Inactive hydrochlorothiazide 25 mg tablet RxNorm: 767064 TAKE ONE TABLET BY MOUTH DAILY 06/30/2017 01/18/2018 Inactive Flagyl 500 mg tablet RxNorm: 650473 1 Tablet(s) PO TID 06/27/2017 07/03/2017 Inactive Phenergan with Codeine Syrup RxNorm: 5-10 Milliliter(s) PO Q6 PRN 06/27/2017 11/15/2017 Inactive Levaquin 500 mg tablet RxNorm: 301012 1 Tablet(s) PO daily 06/27/2017 07/03/2017 Inactive Kenalog 40 mg/mL suspension for injection RxNorm: 1322909 1 Milliliter(s) Inj 06/27/2017 06/27/2017 Inactive Nexium 40 mg capsule,delayed release RxNorm: 776500 1 Capsule(s) PO BID TAKE ONE CAPSULE BY MOUTH BID 05/22/2017 09/18/2017 Inactive Nexium 40 mg capsule,delayed release RxNorm: 284715 1 Capsule(s) PO BID TAKE ONE CAPSULE BY MOUTH BID 05/22/2017 05/21/2017 Inactive hydrocodone 10 mg-acetaminophen 325 mg tablet RxNorm: 973965 Tablet(s) PO TAKE ONE TO TWO TABLETS BY MOUTH EVERY 6 HOURS NEEDED FOR PAIN 05/17/2017 06/15/2017 Inactive Nexium 40 mg capsule,delayed release RxNorm: 946769 Capsule(s) TAKE ONE CAPSULE BY MOUTH BID 05/17/2017 05/21/2017 Inactive alprazolam 0.25 mg tablet RxNorm: 032713 1 Tablet(s) PO daily as needed 05/03/2017 07/01/2017 Inactive Levaquin 500 mg tablet RxNorm: 452583 1 Tablet(s) PO daily 04/20/2017 04/26/2017 Inactive clotrimazole 1 % topical cream RxNorm: 961165 1 Application TOP BID 04/20/2017 11/07/2017 Inactive Kenalog 40 mg/mL suspension for injection RxNorm: 0418220 Milliliter(s) Inj 04/20/2017 04/20/2017 Inactive nystatin 100,000 unit/gram topical powder RxNorm: 885983 1 Gram(s) APPLY TOPICALLY TWO TIMES A DAY 04/10/2017 07/08/2017 Inactive trazodone 50 mg tablet RxNorm: 706691 TAKE ONE AND ONE-HALF (1 1/2) TABLET BY MOUTH AT BEDTIME. MAY INCREASE TO 2 TABLETS AT BEDTIME NEEDED 03/28/2017 06/23/2017 Inactive Augmentin 875 mg-125 mg tablet RxNorm: 983425 1 Tablet(s) PO BID 03/14/2017 03/20/2017 Inactive Kenalog 40 mg/mL suspension for injection RxNorm: 7599484 1 Milliliter(s) Inj 03/14/2017 03/14/2017 Inactive Lexapro 20 mg tablet RxNorm: 386812 1.5 Tablet(s) PO daily 03/08/2017 03/07/2017 Inactive Lexapro 20 mg tablet RxNorm: 481838 1.5 Tablet(s) PO daily 03/08/2017 07/05/2017 Inactive alprazolam 0.25 mg tablet RxNorm: 572432 1 Tablet(s) PO daily as needed 02/23/2017 04/23/2017 Inactive (Response to an electronic controlled substance refill request - RxReferenceNumber: [id number]) Flagyl 500 mg tablet RxNorm: 860044 1 Tablet(s) PO TID 02/20/2017 03/01/2017 Inactive promethazine 25 mg tablet RxNorm: 780618 1 Tablet(s) PO TID as needed nausea 02/20/2017 03/01/2017 Inactive Cipro 500 mg tablet RxNorm: 498779 1 Tablet(s) PO BID 02/20/2017 03/01/2017 Inactive Flagyl 500 mg tablet RxNorm: 925940 1 Tablet(s) PO TID 02/09/2017 02/15/2017 Inactive Trintellix 10 mg tablet RxNorm: 2308473 1 Tablet(s) PO QAM 02/06/2017 03/07/2017 Inactive Efudex 5 % topical cream RxNorm: 485985 1 Application TOP BID use on skin spot on nose 02/06/2017 02/15/2017 Inactive Bystolic 10 mg tablet RxNorm: 279880 TAKE ONE TABLET BY MOUTH DAILY 02/03/2017 06/02/2017 Inactive Imitrex 50 mg tablet RxNorm: 191868 TAKE ONE TABLET BY MOUTH EVERY 8 HOURS NEEDED MAY REPEAT IN 1 HOUR OF INITIAL DOSE. DISCONTINUE FIORICET 12/22/2016 02/19/2017 Inactive Nexium 40 mg capsule,delayed release RxNorm: 050127 TAKE ONE CAPSULE BY MOUTH EVERY DAY 12/21/2016 05/16/2017 Inactive Lexapro 20 mg tablet RxNorm: 606441 Tablet(s) TAKE ONE TABLET BY MOUTH DAILY 12/05/2016 02/05/2017 Inactive Augmentin 875 mg-125 mg tablet RxNorm: 711836 1 Tablet(s) PO BID 11/28/2016 12/04/2016 Inactive ceftriaxone 500 mg solution for injection RxNorm: 1586037 1 Milliliter(s) Inj 11/28/2016 11/28/2016 Inactive hydrocodone 10 mg-acetaminophen 325 mg tablet RxNorm: 811519 Tablet(s) PO TAKE ONE TO TWO TABLETS BY MOUTH EVERY 6 HOURS NEEDED FOR PAIN 11/28/2016 05/16/2017 Inactive (Appended: Controlled substance eRx refill - RxReferenceNumber: [id number]) prednisone 20 mg tablet RxNorm: 984539 2 Tablet(s) PO daily 11/28/2016 12/02/2016 Inactive Synthroid 100 mcg tablet RxNorm: 792816 1 Tablet(s) PO daily 11/21/2016 05/19/2017 Inactive Brand name only! trazodone 50 mg tablet RxNorm: 062120 Tablet(s) TAKE 1 AND 1/2 TABLETS EVERY NIGHT AT BEDTIME , MAY INCREASE TO 2 TABLETS AT BEDTIME NEEDED 11/21/2016 11/20/2016 Inactive trazodone 50 mg tablet RxNorm: 848400 TAKE 1 AND 1/2 TABLETS EVERY NIGHT AT BEDTIME , MAY INCREASE TO 2 TABLETS AT BEDTIME NEEDED 11/21/2016 08/01/2018 Inactive Synthroid 100 mcg tablet RxNorm: 971983 1 Tablet(s) PO daily TAKE ONE TABLET BY MOUTH DAILY 11/08/2016 11/20/2016 Inactive ceftriaxone 500 mg solution for injection RxNorm: 0004624 Inj 11/07/2016 11/07/2016 Inactive Kenalog 40 mg/mL suspension for injection RxNorm: 5299367 Milliliter(s) Inj 11/07/2016 11/07/2016 Inactive Xanax 0.25 mg tablet RxNorm: 762777 1 Tablet(s) PO daily as needed 10/31/2016 05/02/2017 Inactive alprazolam 0.25 mg tablet RxNorm: 088468 1 Tablet(s) PO daily as needed 10/21/2016 12/18/2016 Inactive (Response to an electronic controlled substance refill request - RxReferenceNumber: [id number]) hydrochlorothiazide 25 mg tablet RxNorm: 469453 TAKE ONE TABLET BY MOUTH DAILY 10/11/2016 04/08/2017 Inactive Xanax 0.25 mg tablet RxNorm: 128898 1 Tablet(s) PO daily as needed 08/23/2016 10/19/2016 Inactive Flonase Allergy Relief 50 mcg/actuation nasal spray,suspension RxNorm: 0340518 1 Lamar NASAL daily 08/15/2016 No Stop Date Active amoxicillin 500 mg capsule RxNorm: 595352 1 Capsule(s) PO TID 08/15/2016 08/24/2016 Inactive Bystolic 10 mg tablet RxNorm: 308704 TAKE ONE TABLET BY MOUTH DAILY 08/01/2016 12/28/2016 Inactive trazodone 50 mg tablet RxNorm: 389030 TAKE 1 AND 1/2 TABLETS EVERY NIGHT AT BEDTIME , MAY INCREASE TO 2 TABLETS AT BEDTIME NEEDED 07/25/2016 11/11/2016 Inactive alprazolam 0.25 mg tablet RxNorm: 105559 1 Tablet(s) PO daily as needed 07/25/2016 08/22/2016 Inactive (Response to an electronic controlled substance refill request - RxReferenceNumber: [id number]) Imitrex 50 mg tablet RxNorm: 916043 1 Tablet(s) PO Q8 as needed may repeat x1 dose in 1 hour of inital dose. 07/13/2016 No Stop Date Active Lexapro 20 mg tablet RxNorm: 130995 TAKE 1/2 TABLET BY MOUTH DAILY FOR 10 DAYS, THEN TAKE ONE TABLET BY MOUTH DAILY 06/27/2016 11/23/2016 Inactive Synthroid 100 mcg tablet RxNorm: 933608 TAKE ONE TABLET BY MOUTH DAILY 06/20/2016 11/07/2016 Inactive Augmentin 500 mg-125 mg tablet RxNorm: 669907 1 Tablet(s) PO TID 06/07/2016 06/13/2016 Inactive hydrocodone 10 mg-acetaminophen 325 mg tablet RxNorm: 530791 Tablet(s) PO TAKE ONE TO TWO TABLETS BY MOUTH EVERY 6 HOURS NEEDED FOR PAIN 06/07/2016 11/27/2016 Inactive (Appended: Controlled substance eRx refill - RxReferenceNumber: [id number]) hydrochlorothiazide 25 mg tablet RxNorm: 392729 TAKE ONE TABLET BY MOUTH DAILY 03/14/2016 09/09/2016 Inactive Edarbi 40 mg tablet RxNorm: 7992384 1 Tablet(s) PO daily 03/14/2016 06/06/2016 Inactive trazodone 50 mg tablet RxNorm: 681388 Tablet(s) TAKE 1 AND 1/2 TABLET AT BEDTIME. MAY INCREASE TO 2 TABLETS IF NECESSARY 02/25/2016 07/05/2016 Inactive Imitrex 50 mg tablet RxNorm: 946489 1 Tablet(s) PO Q8 as needed may repeat x1 dose in 1 hour of inital dose. 02/25/2016 07/12/2016 Inactive dc fioricet Xanax 0.25 mg tablet RxNorm: 119665 1 Tablet(s) PO daily as needed 02/24/2016 07/21/2016 Inactive mupirocin 2 % topical ointment RxNorm: 317957 1 TOP BID 02/22/2016 11/08/2017 Inactive Bactrim DS 800 mg-160 mg tablet RxNorm: 294469 1 Tablet(s) PO BID 02/22/2016 03/02/2016 Inactive Fioricet 50 mg-325 mg-40 mg tablet RxNorm: 713763 Tablet(s) TAKE ONE TABLET BY MOUTH EVERY 4 HOURS NEEDED FOR headache 02/12/2016 02/24/2016 Inactive (Response to an electronic controlled substance refill request - RxReferenceNumber: [id number]) Fioricet 50 mg-325 mg-40 mg tablet RxNorm: 961564 Tablet(s) TAKE ONE TABLET BY MOUTH EVERY 4 HOURS NEEDED FOR headache 02/12/2016 02/11/2016 Inactive (Response to an electronic controlled substance refill request - RxReferenceNumber: [id number]) Nexium 40 mg capsule,delayed release RxNorm: 562942 TAKE ONE CAPSULE BY MOUTH EVERY DAY 02/01/2016 10/27/2016 Inactive Bystolic 10 mg tablet RxNorm: 863127 Tablet(s) TAKE ONE TABLET BY MOUTH DAILY 01/06/2016 07/03/2016 Inactive Xanax 0.25 mg tablet RxNorm: 472593 1 Tablet(s) PO daily as needed 12/28/2015 02/23/2016 Inactive Levaquin 500 mg tablet RxNorm: 103836 1 Tablet(s) PO daily take a probiotic daily 12/14/2015 02/11/2016 Inactive Levaquin 500 mg tablet RxNorm: 814323 1 Tablet(s) PO daily take a probiotic daily 12/14/2015 12/13/2015 Inactive prednisone 20 mg tablet RxNorm: 643881 1 Tablet(s) PO BID 12/07/2015 12/13/2015 Inactive Augmentin 875 mg-125 mg tablet RxNorm: 488969 1 Tablet(s) PO BID 12/07/2015 12/13/2015 Inactive ceftriaxone 500 mg solution for injection RxNorm: 4958222 Inj 12/07/2015 12/07/2015 Inactive Phenergan with Codeine Syrup RxNorm: 5-10 Milliliter(s) PO Q6 PRN 12/07/2015 06/26/2017 Inactive alprazolam 0.25 mg tablet RxNorm: 673851 1 Tablet(s) PO daily as needed 11/27/2015 12/25/2015 Inactive (Response to an electronic controlled substance refill request - RxReferenceNumber: [id number]) trazodone 50 mg tablet RxNorm: 107137 TAKE 1 AND 1/2 TABLET AT BEDTIME FOR 2 WEEKS, MAY INCREASE TO 2 TABLETS IF NECESSARY AFTER THAT 11/26/2015 02/24/2016 Inactive ceftriaxone 500 mg solution for injection RxNorm: 1209925 Milliliter(s) Inj 11/24/2015 11/24/2015 Inactive prednisone 10 mg tablet RxNorm: 105049 3 Tablet(s) PO daily 11/24/2015 11/28/2015 Inactive cefdinir 300 mg capsule RxNorm: 633274 1 Capsule(s) PO BID 11/24/2015 11/30/2015 Inactive Kenalog 40 mg/mL suspension for injection RxNorm: 8108214 1 Milliliter(s) Inj 11/24/2015 11/24/2015 Inactive Lexapro 20 mg tablet RxNorm: 006582 TAKE 1/2 TABLET BY MOUTH DAILY FOR 10 DAYS, THEN TAKE ONE TABLET BY MOUTH DAILY 11/23/2015 05/20/2016 Inactive Lipitor 10 mg tablet RxNorm: 129151 Tablet(s) TAKE ONE TABLET BY MOUTH EVERY DAY 10/26/2015 11/06/2016 Inactive Norvasc 10 mg tablet RxNorm: 445232 Tablet(s) PO TAKE ONE TABLET BY MOUTH EVERY DAY 10/26/2015 01/18/2018 Inactive hydrochlorothiazide 25 mg tablet RxNorm: 242763 TAKE ONE TABLET BY MOUTH DAILY 10/20/2015 01/17/2016 Inactive promethazine 25 mg/mL injection solution RxNorm: 087994 Milliliter(s) Inj 08/27/2015 08/27/2015 Inactive ketorolac 60 mg/2 mL intramuscular solution RxNorm: 717651 Milliliter(s) IM 08/27/2015 08/27/2015 Inactive alprazolam 0.25 mg tablet RxNorm: 863215 1 Tablet(s) PO daily as needed 08/27/2015 10/25/2017 Inactive (Response to an electronic controlled substance refill request - RxReferenceNumber: [id number]) Lexapro 20 mg tablet RxNorm: 257439 TAKE 1/2 TABLET BY MOUTH DAILY FOR 10 DAYS, THEN TAKE ONE TABLET BY MOUTH DAILY 08/13/2015 11/10/2015 Inactive Flonase 50 mcg/actuation nasal spray,suspension RxNorm: 104161 PLACE 1 SPRAY IN EACH NOSTRIL DAILY 08/13/2015 02/08/2016 Inactive Augmentin 500 mg-125 mg tablet RxNorm: 558710 1 Tablet(s) PO TID 08/10/2015 08/16/2015 Inactive Kenalog 40 mg/mL suspension for injection RxNorm: 1929051 Milliliter(s) Inj 08/10/2015 08/10/2015 Inactive ceftriaxone 500 mg solution for injection RxNorm: 6522610 Inj 08/10/2015 08/10/2015 Inactive nystatin 100,000 unit/mL oral suspension RxNorm: 070095 4 Milliliter(s) PO QID 08/10/2015 08/16/2015 Inactive trazodone 50 mg tablet RxNorm: 798998 TAKE 1 AND 1/2 TABLET AT BEDTIME FOR 2 WEEKS, MAY INCREASE TO 2 TABLETS IF NECESSARY AFTER THAT 07/31/2015 11/25/2015 Inactive ceftriaxone 500 mg solution for injection RxNorm: 0495410 1 Milliliter(s) Inj 07/28/2015 07/28/2015 Inactive Bactrim DS 800 mg-160 mg tablet RxNorm: 239778 1 Tablet(s) PO BID 07/28/2015 08/06/2015 Inactive Bactroban 2 % topical ointment RxNorm: 085081 1 Application TOP BID 07/28/2015 08/06/2015 Inactive Diflucan 150 mg tablet RxNorm: 307042 1 Tablet(s) PO daily 06/11/2015 06/17/2015 Inactive clotrimazole 1 % topical cream RxNorm: 398567 1 Application TOP BID 06/11/2015 07/10/2015 Inactive Bystolic 10 mg tablet RxNorm: 060074 TAKE ONE TABLET BY MOUTH DAILY 06/08/2015 12/04/2015 Inactive alprazolam 0.25 mg tablet RxNorm: 697179 1 Tablet(s) PO daily as needed 06/01/2015 08/25/2015 Inactive (Response to an electronic controlled substance refill request - RxReferenceNumber: [id number]) Fioricet 50 mg-325 mg-40 mg tablet RxNorm: 268973 Tablet(s) TAKE ONE TABLET BY MOUTH EVERY 4 HOURS NEEDED FOR headache 05/28/2015 06/08/2015 Inactive (Response to an electronic controlled substance refill request - RxReferenceNumber: [id number]) trazodone 50 mg tablet RxNorm: 824302 TAKE 1 AND 1/2 TABLET AT BEDTIME FOR 2 WEEKS, MAY INCREASE TO 2 TABLETS IF NECESSARY AFTER THAT 05/25/2015 08/22/2015 Inactive trazodone 50 mg tablet RxNorm: 276012 TAKE 1 AND 1/2 TABLET AT BEDTIME FOR 2 WEEKS, MAY INCREASE TO 2 TABLETS IF NECESSARY AFTER THAT 05/25/2015 05/24/2015 Inactive Synthroid 100 mcg tablet RxNorm: 642451 TAKE ONE TABLET BY MOUTH DAILY 04/23/2015 01/17/2016 Inactive Lipitor 10 mg tablet RxNorm: 390853 TAKE ONE TABLET BY MOUTH EVERY DAY 04/23/2015 10/25/2015 Inactive Kenalog 40 mg/mL suspension for injection RxNorm: 0278756 Milliliter(s) Inj 03/19/2015 03/19/2015 Inactive Lexapro 20 mg tablet RxNorm: 564291 1 Tablet(s) PO daily 03/19/2015 07/16/2015 Inactive 1/2 tab daily x 10 days then 1 tab daily hydrocodone 10 mg-acetaminophen 325 mg tablet RxNorm: 984786 Tablet(s) PO TAKE ONE TO TWO TABLETS BY MOUTH EVERY 6 HOURS NEEDED FOR PAIN 03/19/2015 06/06/2016 Inactive (Appended: Controlled substance eRx refill - RxReferenceNumber: [id number]) Carafate 1 gram tablet RxNorm: 947318 1 Tablet(s) PO AC & HS 03/19/2015 06/16/2015 Inactive dissolve in water and take as a slurry hydrochlorothiazide 25 mg tablet RxNorm: 016734 1 Tablet(s) PO daily 03/12/2015 09/07/2015 Inactive Nexium 40 mg capsule,delayed release RxNorm: 647012 TAKE ONE CAPSULE BY MOUTH EVERY DAY 02/26/2015 12/22/2015 Inactive Cymbalta 60 mg capsule,delayed release RxNorm: 703500 TAKE ONE CAPSULE BY MOUTH TWICE A DAY 02/23/2015 03/18/2015 Inactive alprazolam 0.25 mg tablet RxNorm: 072026 1 Tablet(s) PO daily as needed 02/11/2015 05/10/2015 Inactive (Response to an electronic controlled substance refill request - RxReferenceNumber: [id number]) trazodone 50 mg tablet RxNorm: 710224 TAKE 1 AND 1/2 TABLET AT BEDTIME FOR 2 WEEKS, MAY INCREASE TO 2 TABLETS IF NECESSARY AFTER THAT 01/27/2015 05/24/2015 Inactive Augmentin 500 mg-125 mg tablet RxNorm: 476442 1 Tablet(s) PO TID 01/07/2015 01/13/2015 Inactive gentamicin 0.3 % eye drops RxNorm: 711843 3 Drop(s) OPH QID 01/07/2015 01/13/2015 Inactive [AttnRPh: Saving apply/adjudicate RxGRP:[id number] RxBIN:[id number] RxPCN: ID#:[id number]] scopolamine 1.5 mg transdermal 72 hour patch RxNorm: 133186 1 Patch TD q72 hours 01/07/2015 11/23/2015 Inactive Synthroid 100 mcg tablet RxNorm: 813095 TAKE ONE TABLET BY MOUTH ONCE A DAY 01/06/2015 04/22/2015 Inactive nystatin 100,000 unit/gram topical powder RxNorm: 231949 APPLY TOPICALLY TWO TIMES A DAY 12/18/2014 03/17/2015 Inactive alprazolam 0.25 mg tablet RxNorm: 277108 TAKE ONE TABLET BY MOUTH DAILY NEEDED 10/30/2014 11/28/2014 Inactive (Response to an electronic controlled substance refill request - RxReferenceNumber: [id number]) alprazolam 0.25 mg tablet RxNorm: 251917 Tablet(s) TAKE ONE TABLET BY MOUTH DAILY 10/30/2014 10/29/2014 Inactive (Response to an electronic controlled substance refill request - RxReferenceNumber: [id number]) Lipitor 10 mg tablet RxNorm: 026420 TAKE ONE TABLET BY MOUTH EVERY DAY 10/30/2014 02/26/2015 Inactive alprazolam 0.25 mg tablet RxNorm: 788498 TAKE ONE TABLET BY MOUTH DAILY 10/07/2014 10/29/2014 Inactive (Response to an electronic controlled substance refill request - RxReferenceNumber: [id number]) alprazolam 0.25 mg tablet RxNorm: 392382 TAKE ONE TABLET BY MOUTH DAILY 10/06/2014 10/07/2014 Inactive (Response to an electronic controlled substance refill request - RxReferenceNumber: [id number]) alprazolam 0.25 mg tablet RxNorm: 678073 Tablet(s) TAKE ONE TABLET BY MOUTH EVERY DAY NEEDED 09/30/2014 10/06/2014 Inactive (Response to an electronic controlled substance refill request - RxReferenceNumber: [id number]) Fioricet 50 mg-325 mg-40 mg tablet RxNorm: 031907 Tablet(s) TAKE ONE TABLET BY MOUTH EVERY 4 HOURS NEEDED FOR headache 09/29/2014 10/12/2014 Inactive (Response to an electronic controlled substance refill request - RxReferenceNumber: [id number]) Bystolic 10 mg tablet RxNorm: 525564 1 Tablet(s) PO daily TAKE ONE TABLET BY MOUTH EVERY DAY 09/29/2014 04/26/2015 Inactive Bystolic 5 mg tablet RxNorm: 324251 TAKE 1 AND 1/2 TABLETS ONCE DAILY 09/24/2014 09/23/2014 Inactive Bystolic 5 mg tablet RxNorm: 109494 Tablet(s) TAKE 1 AND 1/2 TABLETS ONCE DAILY 09/24/2014 09/18/2015 Inactive gentamicin 0.3 % eye drops RxNorm: 304854 3 Drop(s) OPH QID 09/23/2014 09/29/2014 Inactive trazodone 50 mg tablet RxNorm: 123371 TAKE 1 AND 1/2 TABLET AT BEDTIME FOR 2 WEEKS, MAY INCREASE TO 2 TABLETS IF NECESSARY AFTER THAT 09/22/2014 01/26/2015 Inactive Fioricet 50 mg-325 mg-40 mg tablet RxNorm: 864913 TAKE ONE TABLET BY MOUTH EVERY 4 HOURS NEEDED FOR PAIN 09/17/2014 09/28/2014 Inactive (Response to an electronic controlled substance refill request - RxReferenceNumber: [id number]) Duragesic 50 mcg/hr transdermal patch RxNorm: 118531 1 TD q72 hours 08/07/2014 01/06/2015 Inactive [SAVINGS FOR UNINSURED PATIENTS -- BIN:[id number], PCN: [id number], Group: [id number], ID# [id number], Process claim through [employer], for questions: . THIS IS NOT INSURANCE.] alprazolam 0.25 mg tablet RxNorm: 698735 TAKE ONE TABLET BY MOUTH EVERY DAY NEEDED 07/31/2014 08/29/2014 Inactive (Response to an electronic controlled substance refill request - RxReferenceNumber: [id number]) alprazolam 0.25 mg tablet RxNorm: 243423 1 Tablet(s) PO daily as needed TAKE ONE TABLET BY MOUTH EVERY DAY NEEDED 07/30/2014 08/01/2014 Inactive (Response to an electronic controlled substance refill request - RxReferenceNumber: [id number]) Diflucan 150 mg tablet RxNorm: 109577 1 Tablet(s) PO daily 06/25/2014 07/01/2014 Inactive [SAVINGS FOR UNINSURED PATIENTS -- BIN:[id number], PCN: ASPROD1, Group: [id number], ID# [id number], Process claim through MedImpact, for questions: . THIS IS NOT INSURANCE.] Kenalog 40 mg/mL suspension for injection RxNorm: 3506484 Milliliter(s) Inj 06/23/2014 06/23/2014 Inactive [SAVINGS FOR UNINSURED PATIENTS -- BIN:247644, PCN: ASPROD1, Group: [id number], ID# [id number], Process claim through MedImpact, for questions: . THIS IS NOT INSURANCE.] ceftriaxone 500 mg solution for injection RxNorm: 004634 Inj 06/23/2014 06/23/2014 Inactive [SAVINGS FOR UNINSURED PATIENTS -- BIN:509385, PCN: ASPROD1, Group: [id number], ID# [id number], Process claim through MedImpact, for questions: . THIS IS NOT INSURANCE.] Levaquin 500 mg tablet RxNorm: 459015 1 Tablet(s) PO daily 06/23/2014 07/13/2014 Inactive [SAVINGS FOR UNINSURED PATIENTS -- BIN:876164, PCN: ASPROD1, Group: [id number], ID# [id number], Process claim through MedImpact, for questions: . THIS IS NOT INSURANCE.] Duragesic 50 mcg/hr transdermal patch RxNorm: 515711 1 TD q72 hours 06/05/2014 08/06/2014 Inactive [SAVINGS FOR UNINSURED PATIENTS -- BIN:401638, PCN: ASPROD1, Group: [id number], ID# [id number], Process claim through MedImpact, for questions: . THIS IS NOT INSURANCE.] alprazolam 0.25 mg tablet RxNorm: 792644 1 Tablet(s) PO daily as needed TAKE ONE TABLET BY MOUTH EVERY DAY NEEDED 06/02/2014 07/29/2014 Inactive (Response to an electronic controlled substance refill request - RxReferenceNumber: [id number]) nystatin 100,000 unit/gram topical powder RxNorm: 313783 APPLY TO AFFECTED AREA(S) TWO TIMES A DAY 05/01/2014 06/14/2014 Inactive hydrochlorothiazide 25 mg tablet RxNorm: 686711 TAKE ONE TABLET BY MOUTH EVERY DAY MUST CALL MD FOR APPOINTMENT 04/24/2014 10/20/2014 Inactive alprazolam 0.25 mg tablet RxNorm: 694191 Tablet(s) TAKE ONE TABLET BY MOUTH EVERY DAY NEEDED 04/16/2014 06/02/2014 Inactive (Response to an electronic controlled substance refill request - RxReferenceNumber: [id number]) alprazolam 0.25 mg tablet RxNorm: 110935 TAKE ONE TABLET BY MOUTH EVERY DAY NEEDED 04/16/2014 05/15/2014 Inactive (Response to an electronic controlled substance refill request - RxReferenceNumber: [id number]) alprazolam 0.25 mg tablet RxNorm: 618790 TAKE ONE TABLET BY MOUTH EVERY DAY NEEDED 04/16/2014 05/15/2014 Inactive (Response to an electronic controlled substance refill request - RxReferenceNumber: [id number]) alprazolam 0.25 mg tablet RxNorm: 279541 TAKE ONE TABLET BY MOUTH EVERY DAY NEEDED 04/14/2014 04/16/2014 Inactive (Response to an electronic controlled substance refill request - RxReferenceNumber: [id number]) Lipitor 10 mg tablet RxNorm: 577760 TAKE ONE TABLET BY MOUTH EVERY DAY 04/14/2014 09/10/2014 Inactive alprazolam 0.25 mg tablet RxNorm: 930797 TAKE ONE TABLET BY MOUTH EVERY DAY NEEDED 04/14/2014 04/14/2014 Inactive (Response to an electronic controlled substance refill request - RxReferenceNumber: [id number]) alprazolam 0.25 mg tablet RxNorm: 615430 TAKE ONE TABLET BY MOUTH EVERY DAY NEEDED 04/14/2014 04/15/2014 Inactive (Response to an electronic controlled substance refill request - RxReferenceNumber: [id number]) alprazolam 0.25 mg tablet RxNorm: 750455 TAKE ONE TABLET BY MOUTH EVERY DAY NEEDED 04/14/2014 04/14/2014 Inactive (Response to an electronic controlled substance refill request - RxReferenceNumber: [id number]) nystatin 100,000 unit/gram topical powder RxNorm: 009813 1 Application TOP BID 04/03/2014 07/01/2014 Inactive [SAVINGS FOR UNINSURED PATIENTS -- BIN:582201, PCN: ASPROD1, Group: [id number], ID# [id number], Process claim through Strap, for questions: . THIS IS NOT INSURANCE.] Keflex 500 mg capsule RxNorm: 031563 1 Capsule(s) PO QID 04/03/2014 04/09/2014 Inactive [SAVINGS FOR UNINSURED PATIENTS -- BIN:557535, PCN: ASPROD1, Group: [id number], ID# [id number], Process claim through MedImpact, for questions: . THIS IS NOT INSURANCE.] Synthroid 100 mcg tablet RxNorm: 099203 1 Tablet(s) PO daily TAKE ONE TABLET BY MOUTH EVERY DAY 04/01/2014 01/05/2015 Inactive [SAVINGS FOR UNINSURED PATIENTS -- BIN:573442, PCN: ASPROD1, Group: [id number], ID# [id number], Process claim through MedImpact, for questions: . THIS IS NOT INSURANCE.] Duragesic 50 mcg/hr transdermal patch RxNorm: 865344 1 TD q72 hours 03/24/2014 06/04/2014 Inactive [SAVINGS FOR UNINSURED PATIENTS -- BIN:503925, PCN: ASPROD1, Group: [id number], ID# [id number], Process claim through MedImpact, for questions: . THIS IS NOT INSURANCE.] trazodone 50 mg tablet RxNorm: 466880 TAKE 1 AND 1/2 TABLET AT BEDTIME FOR 2 WEEKS, MAY INCREASE TO 2 TABLETS IF NECESSARY AFTER THAT 03/18/2014 09/13/2014 Inactive nystatin 100,000 unit/gram topical powder RxNorm: 860074 1 Application TOP BID 03/07/2014 03/16/2014 Inactive [SAVINGS FOR UNINSURED PATIENTS -- BIN:703962, PCN: ASPROD1, Group: [id number], ID# [id number], Process claim through MedImpact, for questions: . THIS IS NOT INSURANCE.] permethrin 5 % topical cream RxNorm: 466599 1 Application TOP daily 03/07/2014 11/23/2015 Inactive apply head to toe-leave on overnight and wash off in the a.m. May repeat x 1 if needed Diflucan 150 mg tablet RxNorm: 272403 1 Tablet(s) PO daily 03/07/2014 03/09/2014 Inactive [SAVINGS FOR UNINSURED PATIENTS -- BIN:961870, PCN: ASPROD1, Group: [id number], ID# [id number], Process claim through MedImpact, for questions: . THIS IS NOT INSURANCE.] hydrochlorothiazide 25 mg tablet RxNorm: 173533 TAKE ONE TABLET BY MOUTH EVERY DAY MUST CALL FOR APPOINTMENT 03/06/2014 04/23/2014 Inactive Zithromax Z-Sergio 250 mg tablet RxNorm: 927873 Tablet(s) PO as directed 03/04/2014 11/23/2015 Inactive [SAVINGS FOR UNINSURED PATIENTS -- BIN:907358, PCN: ASPROD1, Group: [id number], ID# [id number], Process claim through MedImpact, for questions: . THIS IS NOT INSURANCE.] Flonase 50 mcg/actuation nasal spray,suspension RxNorm: 591469 1 Lamar NASAL daily 03/04/2014 07/01/2014 Inactive [SAVINGS FOR UNINSURED PATIENTS -- BIN:672540, PCN: ASPROD1, Group: [id number], ID# [id number], Process claim through MedImpact, for questions: . THIS IS NOT INSURANCE.] alprazolam 0.25 mg tablet RxNorm: 889059 1 Tablet(s) PO PRN TAKE ONE TABLET BY MOUTH EVERY DAY NEEDED 02/25/2014 04/14/2014 Inactive (Appended: Controlled substance eRx refill - RxReferenceNumber: [id number]) alprazolam 0.25 mg tablet RxNorm: 430460 TAKE ONE TABLET BY MOUTH EVERY DAY NEEDED 02/21/2014 03/22/2014 Inactive (Response to an electronic controlled substance refill request - RxReferenceNumber: [id number]) alprazolam 0.25 mg tablet RxNorm: 313594 TAKE ONE TABLET BY MOUTH EVERY DAY NEEDED 02/21/2014 03/22/2014 Inactive (Response to an electronic controlled substance refill request - RxReferenceNumber: [id number]) alprazolam 0.25 mg tablet RxNorm: 532740 TAKE ONE TABLET BY MOUTH EVERY DAY NEEDED 02/18/2014 03/19/2014 Inactive (Response to an electronic controlled substance refill request - RxReferenceNumber: [id number]) Cymbalta 60 mg capsule,delayed release RxNorm: 571154 TAKE ONE CAPSULE BY MOUTH TWICE A DAY 02/18/2014 01/13/2015 Inactive Nexium 40 mg capsule,delayed release RxNorm: 413154 TAKE ONE CAPSULE BY MOUTH EVERY DAY 02/18/2014 01/13/2015 Inactive Bactrim DS 800 mg-160 mg tablet RxNorm: 453850 1 Tablet(s) PO BID 02/13/2014 02/19/2014 Inactive probiotic while one antibiotic Bactrim DS 800 mg-160 mg tablet RxNorm: 366805 1 Tablet(s) PO BID 02/13/2014 02/12/2014 Inactive hydrocodone 10 mg-acetaminophen 325 mg tablet RxNorm: 447284 Tablet(s) PO TAKE ONE TO TWO TABLETS BY MOUTH EVERY 6 HOURS NEEDED FOR PAIN 02/06/2014 03/18/2015 Inactive (Appended: Controlled substance eRx refill - RxReferenceNumber: [id number]) Abilify 2 mg tablet RxNorm: 496392 Tablet(s) PO TAKE ONE TABLET BY MOUTH EVERY NIGHT AT BEDTIME 02/03/2014 03/19/2015 Inactive Duragesic 50 mcg/hr transdermal patch RxNorm: 741896 1 TD q72 hours 01/14/2014 03/23/2014 Inactive alprazolam 0.25 mg tablet RxNorm: 330332 1 Tablet(s) PO QDAY PRN 01/14/2014 02/12/2014 Inactive alprazolam 0.25 mg tablet RxNorm: 499638 Tablet(s) PO TAKE ONE TABLET BY MOUTH EVERY DAY NEEDED 01/14/2014 02/24/2014 Inactive (Appended: Controlled substance eRx refill - RxReferenceNumber: [id number]) Lipitor 10 mg tablet RxNorm: 505263 Tablet(s) PO TAKE ONE TABLET BY MOUTH EVERY DAY 01/14/2014 04/13/2014 Inactive Synthroid 100 mcg tablet RxNorm: 706426 Tablet(s) PO TAKE ONE TABLET BY MOUTH EVERY DAY 2013 03/31/2014 Inactive Fioricet 50 mg-325 mg-40 mg tablet RxNorm: 340185 Tablet(s) PO TAKE ONE TABLET BY MOUTH EVERY 4 HOURS NEEDED FOR PAIN 11/27/2013 09/17/2014 Inactive Fioricet 50 mg-325 mg-40 mg tablet RxNorm: 737473 Tablet(s) PO TAKE ONE TABLET BY MOUTH EVERY 4 HOURS NEEDED FOR PAIN 11/25/2013 11/26/2013 Inactive Zithromax Z-Sergio 250 mg tablet RxNorm: 889263 Tablet(s) PO as directed 11/11/2013 01/13/2014 Inactive Bystolic 10 mg tablet RxNorm: 158540 Tablet(s) PO TAKE ONE TABLET BY MOUTH EVERY DAY 10/21/2013 09/28/2014 Inactive Abilify 2 mg tablet RxNorm: 583226 1 Tablet(s) PO QHS 09/25/2013 01/22/2014 Inactive Synthroid 100 mcg tablet RxNorm: 428070 Tablet(s) PO TAKE ONE TABLET BY MOUTH EVERY DAY 09/24/2013 12/25/2013 Inactive Abilify 2 mg tablet RxNorm: 972404 1 Tablet(s) PO QHS 09/24/2013 09/24/2013 Inactive Rocephin 500 mg solution for injection RxNorm: 496772 1ml Milliliter(s) Inj 09/24/2013 09/24/2013 Inactive Rocephin 500 mg solution for injection RxNorm: 273576 1 Milliliter(s) Inj 09/19/2013 09/19/2013 Inactive Bystolic 5 mg tablet RxNorm: 682811 1 1/2 Tablet(s) PO daily 09/17/2013 03/15/2014 Inactive 1 1/2 daily may have 90 day if cheaper Bystolic 5 mg tablet RxNorm: 724659 1 1/2 Tablet(s) PO daily 09/17/2013 09/16/2013 Inactive 1 1/2 daily Lipitor 10 mg tablet RxNorm: 131390 Tablet(s) PO TAKE ONE TABLET BY MOUTH EVERY DAY 09/12/2013 01/13/2014 Inactive hydrocodone 10 mg-acetaminophen 325 mg tablet RxNorm: 835858 Tablet(s) PO TAKE ONE TO TWO TABLETS BY MOUTH EVERY 6 HOURS NEEDED FOR PAIN 09/09/2013 10/29/2017 Inactive (Appended: Controlled substance eRx refill - RxReferenceNumber: [id number]) hydrocodone 10 mg-acetaminophen 325 mg tablet RxNorm: 367696 1 Tablet(s) PO Q6 PRN 09/09/2013 02/06/2014 Inactive hydrocodone 10 mg-acetaminophen 325 mg tablet RxNorm: 837916 Tablet(s) PO TAKE ONE TO TWO TABLETS BY MOUTH EVERY 6 HOURS NEEDED FOR PAIN 09/06/2013 10/29/2017 Inactive (Appended: Controlled substance eRx refill - RxReferenceNumber: [id number]) Norvasc 10 mg tablet RxNorm: 463191 Tablet(s) PO TAKE ONE TABLET BY MOUTH EVERY DAY 09/05/2013 10/25/2015 Inactive trazodone 50 mg tablet RxNorm: 746627 1 1/2 Tablet(s) PO QHS 09/03/2013 03/17/2014 Inactive 75q hs x 2 week may increase to 100mg if nec after that nystatin 100,000 unit/mL oral suspension RxNorm: 368396 6 Milliliter(s) PO QID 08/06/2013 08/15/2013 Inactive Flonase 50 mcg/actuation nasal spray,suspension RxNorm: 564449 2 Lamar NASAL daily 08/06/2013 03/03/2014 Inactive nystatin 100,000 unit/mL oral suspension RxNorm: 678387 6 Unit(s) PO QID 08/05/2013 08/05/2013 Inactive Phenergan with Codeine Syrup RxNorm: 5 Milliliter(s) PO Q4 PRN 08/05/2013 12/02/2013 Inactive 8 ounces alprazolam 0.25 mg tablet RxNorm: 792173 1 Tablet(s) PO QDAY PRN 07/29/2013 01/14/2014 Inactive Diflucan 150 mg tablet RxNorm: 681076 1 Tablet(s) PO daily 07/24/2013 07/26/2013 Inactive hydrochlorothiazide 25 mg tablet RxNorm: 364779 Tablet(s) PO TAKE ONE TABLET BY MOUTH EVERY DAY MUST CALL MD FOR APPOINTMENT 07/19/2013 03/05/2014 Inactive Phenergan with Codeine Syrup RxNorm: 10 Milliliter(s) PO Q4 PRN 07/10/2013 08/04/2013 Inactive 8 ounces Rocephin 500 mg solution for injection RxNorm: 321057 1 Inj 07/10/2013 07/10/2013 Inactive cefdinir 300 mg capsule RxNorm: 539641 1 Capsule(s) PO BID 07/10/2013 07/16/2013 Inactive prednisone 10 mg tablet RxNorm: 103738 3 Tablet(s) PO daily 07/10/2013 07/14/2013 Inactive Carafate 100 mg/mL oral suspension RxNorm: 563699 10 Milliliter(s) PO Q6 PRN pt to take carafate 10mL every 6 hours as needed. 07/10/2013 08/05/2014 Inactive Kenalog 40 mg/mL suspension for injection RxNorm: 3891315 1 Milliliter(s) Inj 07/10/2013 07/10/2013 Inactive trazodone 50 mg tablet RxNorm: 228298 1 Tablet(s) PO QHS 07/10/2013 09/02/2013 Inactive sulfamethoxazole 800 mg-trimethoprim 160 mg tablet RxNorm: 500661 1 Tablet(s) PO BID 06/03/2013 06/12/2013 Inactive Synthroid 125 mcg tablet RxNorm: 875294 1 Tablet(s) PO daily 05/07/2013 09/23/2013 Inactive Bystolic 10 mg tablet RxNorm: 465949 1.5 Tablet(s) PO daily 05/07/2013 09/03/2013 Inactive Voltaren 1 % Topical Gel RxNorm: 583266 4 Gram(s) TOP QID apply 4 grams to knees, 2 grams to hands and ankles four times daily. 05/07/2013 09/03/2013 Inactive hydrocodone 10 mg-acetaminophen 325 mg tablet RxNorm: 455714 1 Tablet(s) PO Q6 PRN 04/23/2013 09/09/2013 Inactive Norvasc 10 mg tablet RxNorm: 814081 Tablet(s) PO TAKE ONE TABLET BY MOUTH EVERY DAY 04/23/2013 09/04/2013 Inactive alprazolam 0.25 mg tablet RxNorm: 405550 1 Tablet(s) PO QDAY PRN 03/25/2013 07/22/2013 Inactive Bystolic 10 mg tablet RxNorm: 980384 1 Tablet(s) PO daily TAKE ONE TABLET BY MOUTH EVERY DAY 03/25/2013 05/06/2013 Inactive zolpidem 10 mg tablet RxNorm: 106401 1 Tablet(s) PO HS PRN 03/25/2013 07/09/2013 Inactive gentamicin 0.3 % Eye Drops RxNorm: 2503426 3 Drop(s) OPH QID three gtts to each eye QID x 7 days 03/11/2013 03/10/2013 Inactive gentamicin 0.3 % eye drops RxNorm: 399845 3 Drop(s) OPH QID three gtts to each eye QID x 7 days 03/11/2013 03/17/2013 Inactive Nexium 40 mg capsule,delayed release RxNorm: 789962 Capsule(s) PO TAKE ONE CAPSULE BY MOUTH EVERY DAY 02/15/2013 02/17/2014 Inactive Cymbalta 60 mg capsule,delayed release RxNorm: 004165 Capsule(s) PO TAKE ONE CAPSULE BY MOUTH TWICE A DAY 02/15/2013 02/17/2014 Inactive hydrocodone 10 mg-acetaminophen 325 mg tablet RxNorm: 5337398 1 Tablet(s) PO Q6 PRN 01/22/2013 04/22/2013 Inactive Lipitor 10 mg tablet RxNorm: 413888 Tablet(s) PO TAKE ONE TABLET BY MOUTH EVERY DAY 01/07/2013 09/11/2013 Inactive Cymbalta 60 mg capsule,delayed release RxNorm: 659850 Capsule(s) PO TAKE ONE CAPSULE BY MOUTH TWICE A DAY 01/02/2013 02/14/2013 Inactive Synthroid 100 mcg tablet RxNorm: 695516 1 Tablet(s) PO 12/03/2012 05/06/2013 Inactive Enablex 7.5 mg tablet,extended release RxNorm: 267910 1 Tablet(s) PO daily 11/28/2012 11/27/2012 Inactive Enablex 7.5 mg tablet,extended release RxNorm: 705223 1 Tablet(s) PO daily 11/28/2012 11/28/2012 Inactive scopolamine 1.5 mg 72 hr Transderm Patch RxNorm: 938353 1 Milligram(s) TD q72 hours 11/26/2012 05/06/2013 Inactive hydrochlorothiazide 25 mg tablet RxNorm: 360300 Tablet(s) PO TAKE ONE TABLET BY MOUTH EVERY DAY MUST CALL MD FOR APPOINTMENT 11/24/2012 07/18/2013 Inactive Cymbalta 60 mg capsule,delayed release RxNorm: 323028 Capsule(s) PO TAKE ONE CAPSULE BY MOUTH TWICE A DAY 10/26/2012 01/01/2013 Inactive Bystolic 10 mg tablet RxNorm: 373610 Tablet(s) PO TAKE ONE TABLET BY MOUTH EVERY DAY 10/12/2012 03/25/2013 Inactive zolpidem 10 mg tablet RxNorm: 569579 1 Tablet(s) PO HS PRN 10/02/2012 01/29/2013 Inactive alprazolam 0.25 mg tablet RxNorm: 849493 1 Tablet(s) PO QDAY PRN 10/02/2012 01/29/2013 Inactive Kenalog 40 mg/mL Susp for Injection RxNorm: 6303470 1 Milliliter(s) Inj 09/24/2012 09/24/2012 Inactive Diflucan 150 mg tablet RxNorm: 036155 1 Tablet(s) PO daily 09/24/2012 09/30/2012 Inactive acyclovir 400 mg tablet RxNorm: 737386 1 Tablet(s) PO QID 09/24/2012 10/08/2012 Inactive Cipro 500 mg tablet RxNorm: 092707 1 Tablet(s) PO BID 09/24/2012 09/30/2012 Inactive Tamiflu 75 mg capsule RxNorm: 212107 1 Capsule(s) PO BID 09/17/2012 09/16/2012 Inactive Tamiflu 75 mg capsule RxNorm: 395135 1 Capsule(s) PO BID 09/17/2012 09/16/2012 Inactive Tamiflu 75 mg capsule RxNorm: 448695 1 Capsule(s) PO BID please disregard order for #14 09/17/2012 09/21/2012 Inactive fluconazole 150 mg tablet RxNorm: 238293 1 Tablet(s) PO daily 09/10/2012 09/13/2012 Inactive ketoconazole 2 % Topical Cream RxNorm: 461810 Application TOP BID apply to affected area BID until gone 08/31/2012 11/01/2017 Inactive Norvasc 10 mg tablet RxNorm: 494502 Tablet(s) PO TAKE ONE TABLET BY MOUTH EVERY DAY 08/29/2012 04/22/2013 Inactive Cipro 500 mg tablet RxNorm: 345945 1 Tablet(s) PO BID 08/17/2012 08/26/2012 Inactive Flagyl 500 mg tablet RxNorm: 198526 1 Tablet(s) PO TID 08/17/2012 08/23/2012 Inactive Cipro 500 mg tablet RxNorm: 385890 1 Tablet(s) PO BID 08/17/2012 08/16/2012 Inactive zolpidem 10 mg tablet RxNorm: 187911 1 Tablet(s) PO HS PRN 08/17/2012 09/15/2012 Inactive Flagyl 500 mg tablet RxNorm: 039643 1 Tablet(s) PO TID 08/17/2012 08/16/2012 Inactive alprazolam 0.25 mg tablet RxNorm: 217471 1 Tablet(s) PO QDAY PRN 08/17/2012 09/15/2012 Inactive Belle Allergy 180 mg tablet RxNorm: 104937 1 Tablet(s) PO daily 08/08/2012 02/03/2013 Inactive hydrochlorothiazide 25 mg tablet RxNorm: 643024 1/2 Tablet(s) PO daily 08/08/2012 11/05/2012 Inactive needs appt Carafate 1 gram tablet RxNorm: 500782 1 Tablet(s) PO QID mix with 10 cc water and dissolve into slurry 08/08/2012 08/21/2012 Inactive hydrocodone 10 mg-acetaminophen 325 mg tablet RxNorm: 5794974 1 Tablet(s) PO Q6 PRN 08/08/2012 01/21/2013 Inactive Synthroid 100 mcg tablet RxNorm: 785552 1 Tablet(s) PO 08/08/2012 12/02/2012 Inactive Cymbalta 60 mg capsule,delayed release RxNorm: 143161 Capsule(s) PO 07/23/2012 10/25/2012 Inactive TAKE ONE CAPSULE BY MOUTH TWICE A DAY Nexium 40 mg capsule,delayed release RxNorm: 332709 Capsule(s) PO 06/20/2012 02/14/2013 Inactive TAKE ONE CAPSULE BY MOUTH EVERY DAY Lipitor 10 mg tablet RxNorm: 905527 Tablet(s) PO 06/20/2012 01/06/2013 Inactive TAKE ONE TABLET BY MOUTH EVERY DAY hydrochlorothiazide 25 mg tablet RxNorm: 804210 1 Tablet(s) PO daily 06/19/2012 08/07/2012 Inactive needs appt alprazolam 0.25 mg tablet RxNorm: 577896 1 Tablet(s) PO QDAY PRN 06/05/2012 07/04/2012 Inactive zolpidem 10 mg tablet RxNorm: 282581 1 Tablet(s) PO HS PRN 06/05/2012 07/04/2012 Inactive zolpidem 10 mg tablet RxNorm: 176189 1 Tablet(s) PO HS PRN 04/16/2012 05/15/2012 Inactive alprazolam 0.25 mg tablet RxNorm: 243512 1 Tablet(s) PO QDAY PRN 04/16/2012 05/15/2012 Inactive Cymbalta 60 mg capsule,delayed release RxNorm: 095391 1 Capsule(s) PO BID 03/22/2012 07/19/2012 Inactive Fioricet 50 mg-325 mg-40 mg tablet RxNorm: 988737 1 Tablet(s) PO Q4 PRN 03/22/2012 11/24/2013 Inactive Bystolic 10 mg tablet RxNorm: 189148 Tablet(s) PO 03/22/2012 10/11/2012 Inactive TAKE ONE TABLET BY MOUTH EVERY DAY potassium chloride ER 10 mEq Tab RxNorm: 907205 1 Tablet(s) PO daily 02/24/2012 03/01/2012 Inactive Lasix 20 mg Tab RxNorm: 178983 1 Tablet(s) PO daily 02/22/2012 02/21/2012 Inactive KCL 10 meq RxNorm: 1 PO daily 02/22/2012 02/21/2012 Inactive potassium chloride ER 10 mEq Tab RxNorm: 269592 1 Tablet(s) PO daily 02/22/2012 02/21/2012 Inactive Lasix 20 mg Tab RxNorm: 499286 1 Tablet(s) PO daily 02/22/2012 02/28/2012 Inactive KCL 10 meq RxNorm: 1 PO daily 02/22/2012 02/22/2012 Inactive potassium chloride ER 10 mEq Tab RxNorm: 849456 1 Tablet(s) PO daily 02/22/2012 02/23/2012 Inactive Rocephin 500 mg Solution for Injection RxNorm: 962871 Inj 02/15/2012 02/15/2012 Inactive Nexium 40 mg capsule,delayed release RxNorm: 631163 1 Capsule(s) PO daily 02/15/2012 No Stop Date Active Bystolic 10 mg Tab RxNorm: 578816 1 Tablet(s) PO daily 02/15/2012 08/12/2012 Inactive alprazolam 0.25 mg tablet RxNorm: 897920 1 Tablet(s) PO QDAY PRN 01/31/2012 02/29/2012 Inactive zolpidem 10 mg tablet RxNorm: 507181 1 Tablet(s) PO HS PRN 01/31/2012 02/29/2012 Inactive alprazolam 0.25 mg Tab RxNorm: 513679 1 Tablet(s) PO QDAY PRN 12/16/2011 01/14/2012 Inactive zolpidem 10 mg Tab RxNorm: 818656 1 Tablet(s) PO HS PRN 12/16/2011 01/14/2012 Inactive Norvasc 10 mg tablet RxNorm: 062849 1 Tablet(s) PO daily 12/02/2011 02/21/2012 Inactive Lipitor 10 mg tablet RxNorm: 090504 1 Tablet(s) PO daily 11/16/2011 05/13/2012 Inactive zolpidem 10 mg Tab RxNorm: 506573 1 Tablet(s) PO HS PRN 10/26/2011 12/15/2011 Inactive alprazolam 0.25 mg Tab RxNorm: 752804 1 Tablet(s) PO QDAY PRN 10/26/2011 12/15/2011 Inactive hydrochlorothiazide 25 mg tablet RxNorm: 238829 1 Tablet(s) PO daily 09/05/2011 03/02/2012 Inactive Synthroid 75 mcg tablet RxNorm: 857436 1 Tablet(s) PO daily 08/01/2011 02/26/2012 Inactive Abilify 2 mg Tab RxNorm: 880180 1 Tablet(s) PO QHS 08/01/2011 09/10/2012 Inactive dicyclomine 10 mg Cap RxNorm: 525915 1 Capsule(s) PO TID 08/01/2011 10/29/2011 Inactive alprazolam 0.25 mg Tab RxNorm: 846958 1 Tablet(s) PO QDAY PRN 07/26/2011 10/25/2011 Inactive Fioricet 50 mg-325 mg-40 mg tablet RxNorm: 868021 1 Tablet(s) PO Q4 PRN 07/14/2011 03/21/2012 Inactive Rocephin 500 mg Solution for Injection RxNorm: 536920 1 Milliliter(s) Inj 07/14/2011 08/01/2011 Inactive Nexium 40 mg Capsule, delayed release RxNorm: 783249 1 Capsule(s) PO daily 05/23/2011 10/06/2011 Inactive Bystolic 10 mg tablet RxNorm: 469406 1 Tablet(s) PO daily 05/23/2011 11/18/2011 Inactive Bystolic 10 mg Tab RxNorm: 549990 1 Tablet(s) PO daily 05/23/2011 05/22/2011 Inactive alprazolam 0.25 mg Tab RxNorm: 011742 1 Tablet(s) PO QDAY PRN 05/23/2011 07/25/2011 Inactive Influenza Virus Vaccine 0.5 mL RxNorm: IM 05/23/2011 05/23/2011 Inactive zolpidem 10 mg Tab RxNorm: 666170 1 Tablet(s) PO HS PRN 05/23/2011 10/25/2011 Inactive Rocephin 500 mg Solution for Injection RxNorm: 923743 1 Milliliter(s) Inj 05/03/2011 07/14/2011 Inactive Kenalog 40 mg/mL Susp for Injection RxNorm: 3008417 1 Milliliter(s) Inj 05/03/2011 07/14/2011 Inactive Bactrim DS 800 mg-160 mg Tab RxNorm: 060120 1 Tablet(s) PO BID 05/03/2011 08/01/2011 Inactive Bystolic 10 mg tablet RxNorm: 497252 1 Tablet(s) PO daily No Start Date Active Flonase 50 mcg/actuation nasal spray,suspension RxNorm: 0558223 2 Lamar NASAL daily No Start Date 08/05/2013 Inactive Levaquin 500 mg tablet RxNorm: 263810 Tablet(s) PO No Start Date 04/19/2017 Inactive Duragesic 50 mcg/hr transdermal patch RxNorm: 672240 1 TD q72 hours No Start Date 01/13/2014 Inactive Vesicare 5 mg tablet RxNorm: 017079 1 Tablet(s) PO daily No Start Date 01/06/2015 Inactive Celebrex 200 mg capsule RxNorm: 573377 1 Capsule(s) PO daily No Start Date 04/02/2014 Inactive zolpidem 10 mg Tab RxNorm: 343122 1 Tablet(s) PO HS PRN No Start Date 05/22/2011 Inactive Zyrtec 10 mg Tab RxNorm: 7589780 1 Tablet(s) PO daily No Start Date 08/08/2012 Inactive Flonase 50 mcg/actuation nasal spray,suspension RxNorm: 4239278 1 Lamar NASAL daily No Start Date 11/07/2017 Inactive 1 spray to each nostril daily Nexium 40 mg Cap RxNorm: 750161 1 Capsule(s) PO daily No Start Date 05/22/2011 Inactive ketoconazole 2 % Topical Cream RxNorm: 898837 Application TOP BID apply to affected area BID until gone No Start Date 08/30/2012 Inactive aspirin 81 mg tablet RxNorm: 812828 1 Tablet(s) PO daily No Start Date 11/13/2017 Inactive Cymbalta 60 mg capsule,delayed release RxNorm: 398491 1 Capsule(s) PO BID No Start Date 03/21/2012 Inactive alprazolam 0.25 mg Tab RxNorm: 776236 1 Tablet(s) PO QDAY PRN No Start Date 05/22/2011 Inactive baclofen 10 mg tablet RxNorm: 224806 1 Tablet(s) PO TID as needed muscle spasms No Start Date 11/14/2017 Inactive Toprol XL 100 mg 24 hr Tab RxNorm: 466537 1 Tablet(s) PO BID No Start Date 04/25/2011 Inactive Xanax 0.25 mg tablet RxNorm: 848756 1 Tablet(s) PO daily as needed No Start Date 12/27/2015 Inactive Bystolic 10 mg Tab RxNorm: 951570 1 Tablet(s) PO daily No Start Date 05/22/2011 Inactive Fioricet 50 mg-325 mg-40 mg Tab RxNorm: 446933 1 Tablet(s) PO Q4 PRN No Start Date 07/13/2011 Inactive albuterol sulfate HFA 90 mcg/Actuation Aerosol Inhaler RxNorm: 7902241 1 INH Q4 PRN No Start Date 01/06/2015 Inactive Imitrex 50 mg tablet RxNorm: 551030 1 Tablet(s) PO Q8 as needed may repeat x1 dose in 1 hour of inital dose. No Start Date 02/24/2016 Inactive dc fioricet Tessalon 200 mg Cap RxNorm: 028947 1 Capsule(s) PO Q4 PRN No Start Date 02/14/2012 Inactive Zithromax Z-Sergio 250 mg tablet RxNorm: 446019 Tablet(s) PO No Start Date 11/10/2013 Inactive hydrochlorothiazide 25 mg Tab RxNorm: 599658 1 Tablet(s) PO daily No Start Date 09/04/2011 Inactive Fish Oil 1,000 mg Cap RxNorm: 1 Capsule(s) PO TID No Start Date 11/08/2017 Inactive Deplin 15 mg Tab RxNorm: 1 Tablet(s) PO daily No Start Date 08/01/2011 Inactive Brilinta 90 mg tablet RxNorm: 6350354 1 Tablet(s) PO BID No Start Date 11/23/2015 Inactive Synthroid 75 mcg Tab RxNorm: 392286 1 Tablet(s) PO daily No Start Date 07/31/2011 Inactive ciprofloxacin 0.3 % eye drops RxNorm: 928414 2 Drop(s) ophthalmic (eye) Q2H while awake x 2 days, then Q4H x 5 days No Start Date 11/22/2017 Inactive scopolamine 1.5 mg 72 hr Transderm Patch RxNorm: 133731 1 Milligram(s) TD q72 hours No Start Date 11/25/2012 Inactive hydrocodone-acetaminophen 10 mg-325 mg tablet RxNorm: 3361214 1 Tablet(s) PO Q6 PRN No Start Date 08/07/2012 Inactive Phenergan with Codeine Syrup RxNorm: 5-10 Milliliter(s) PO Q6 PRN No Start Date 02/14/2012 Inactive Norvasc 10 mg Tab RxNorm: 254102 1 Tablet(s) PO daily No Start Date 12/01/2011 Inactive Zithromax Z-Sergio 250 mg Tab RxNorm: 737454 Tablet(s) PO No Start Date 08/01/2011 Inactive Medication Administered Medication Codes Instructions Start Date Status ceftriaxone 500 mg solution for injection RxNorm: 7608013 05/28/2018 No longer Active Kenalog 40 mg/mL suspension for injection RxNorm: 4248871 Milliliter 05/28/2018 No longer Active Kenalog 40 mg/mL suspension for injection RxNorm: 6544016 1Milliliter 01/19/2018 No longer Active ceftriaxone 500 mg solution for injection RxNorm: 8529240 500Milligram 01/19/2018 No longer Active Kenalog 40 mg/mL suspension for injection RxNorm: 5020444 1Milliliter 06/27/2017 No longer Active Kenalog 40 mg/mL suspension for injection RxNorm: 2572143 Milliliter 04/20/2017 No longer Active Kenalog 40 mg/mL suspension for injection RxNorm: 8900240 1Milliliter 03/14/2017 No longer Active ceftriaxone 500 mg solution for injection RxNorm: 5731375 1Milliliter 11/28/2016 No longer Active Kenalog 40 mg/mL suspension for injection RxNorm: 6263135 Milliliter 11/07/2016 No longer Active ceftriaxone 500 mg solution for injection RxNorm: 8542158 11/07/2016 No longer Active ceftriaxone 500 mg solution for injection RxNorm: 8995079 12/07/2015 No longer Active ceftriaxone 500 mg solution for injection RxNorm: 6242246 Milliliter 11/24/2015 No longer Active Kenalog 40 mg/mL suspension for injection RxNorm: 3039064 1Milliliter 11/24/2015 No longer Active promethazine 25 mg/mL injection solution RxNorm: 742249 Milliliter 08/27/2015 No longer Active ketorolac 60 mg/2 mL intramuscular solution RxNorm: 778530 Milliliter 08/27/2015 No longer Active ceftriaxone 500 mg solution for injection RxNorm: 5707629 08/10/2015 No longer Active Kenalog 40 mg/mL suspension for injection RxNorm: 4094454 Milliliter 08/10/2015 No longer Active ceftriaxone 500 mg solution for injection RxNorm: 9550485 1Milliliter 07/28/2015 No longer Active Kenalog 40 mg/mL suspension for injection RxNorm: 8366999 Milliliter 03/19/2015 No longer Active Kenalog 40 mg/mL suspension for injection RxNorm: 2018693 Milliliter 06/23/2014 No longer Active ceftriaxone 500 mg solution for injection RxNorm: 640920 06/23/2014 No longer Active Rocephin 500 mg solution for injection RxNorm: 947561 1mlMilliliter 09/24/2013 No longer Active Rocephin 500 mg solution for injection RxNorm: 318688 1Milliliter 09/19/2013 No longer Active Kenalog 40 mg/mL suspension for injection RxNorm: 9004988 1Milliliter 07/10/2013 No longer Active Rocephin 500 mg solution for injection RxNorm: 358222 1 07/10/2013 No longer Active Kenalog 40 mg/mL Susp for Injection RxNorm: 4015264 1Milliliter 09/24/2012 No longer Active Rocephin 500 mg Solution for Injection RxNorm: 993879 02/15/2012 No longer Active Influenza Virus Vaccine 0.5 mL RxNorm: 05/23/2011 No longer Active Immunizations Vaccine Codes Date Status Influenza CVX: 141 06/24/2013 completed Pneumococcal CVX: 33 06/24/2013 completed PPD Unknown 05/13/2013 completed Assessments Condition Codes Effective Dates Other allergic rhinitis ICD-10: J30.89 ICD-9: 477.8 10/08/2018 Other mucopurulent conjunctivitis, bilateral ICD-10: H10.023 ICD-9: 372.03 10/08/2018 Essential (primary) hypertension ICD-10: I10 ICD-9: [...] Item Item Code Result Date Comp Metabolic Gzz649 NA 141 mEq/L 09/12/2017 Comp Metabolic Qoh413 K 4.1 mEq/L 09/12/2017 Comp Metabolic Ssr851 CL 105 mEq/L 09/12/2017 Comp Metabolic Fsy343 CO2 30.0 mEq/L 09/12/2017 Comp Metabolic Jge166 ANION GAP 10 09/12/2017 Comp Metabolic Jxy560 GLUCOSE 97 mg/dL 09/12/2017 Comp Metabolic Zdo780 Creat 0.7 mg/dL 09/12/2017 Comp Metabolic Tmi773 eGFR 91 ml/min/1.73m2 09/12/2017 Comp Metabolic Tof041 BUN 18 mg/dL 09/12/2017 Comp Metabolic Unn692 B/C Ratio 26.5 Ratio 09/12/2017 Comp Metabolic Inp621 CALCIUM 9.7 mg/dL 09/12/2017 Comp Metabolic Aaa309 ALK PHOS 60 U/L 09/12/2017 Comp Metabolic Egc517 AST(SGOT) 22 U/L 09/12/2017 Comp Metabolic Fhv464 ALT(SGPT) 23 U/L 09/12/2017 Comp Metabolic Yza237 BILI T 0.4 mg/dL 09/12/2017 Comp Metabolic Ejq124 ALBUMIN 3.8 g/dL 09/12/2017 Comp Metabolic Ips822 TPRO 6.4 g/dL 09/12/2017 Comp Metabolic Kfm628 GLOB 2.6 g/dL 09/12/2017 Comp Metabolic Jxy679 A/G Ratio 1.5 Ratio 09/12/2017 Comp Metabolic Gdx957 Osmo 283 mOsmo 09/12/2017 Cbc With Differential [...] 30.7 pg 09/12/2017 Cbc With Differential Ord2 Grand% 7.2 % 09/12/2017 Cbc With Differential Ord2 [...] 2.46 K/ul 09/12/2017 Cbc With Differential Ord2 Grand ABS# 0.6 K/ul 09/12/2017 Cbc With Differential [...] 31.4 pg 11/07/2016 Cbc With Differential Ord2 Grand% 6.1 % 11/07/2016 Cbc With Differential Ord2 [...] 2.48 K/ul 11/07/2016 Cbc With Differential Ord2 Grand ABS# 0.6 K/ul 11/07/2016 Cbc With Differential Ord2 Eos ABS# 0.3 K/ul 11/07/2016 Cbc With Differential Ord2 Baso ABS# 0.1 K/ul 11/07/2016 Comp Metabolic Wyr814 NA 139 mEq/L 11/07/2016 Comp Metabolic Gdh274 K 3.8 mEq/L 11/07/2016 Comp Metabolic Wgy497 CL 106 mEq/L 11/07/2016 Comp Metabolic Esf781 CO2 25.0 mEq/L 11/07/2016 Comp Metabolic Mza393 ANION GAP 12 11/07/2016 Comp Metabolic Zia975 GLUCOSE 98 mg/dL 11/07/2016 Comp Metabolic Hog573 Creat 0.8 mg/dL 11/07/2016 Comp Metabolic Tgn283 eGFR 71 ml/min/1.73m2 11/07/2016 Comp Metabolic Tts638 BUN 36 mg/dL 11/07/2016 Comp Metabolic Xsd641 B/C Ratio 42.9 Ratio 11/07/2016 Comp Metabolic Buq600 CALCIUM 9.9 mg/dL 11/07/2016 Comp Metabolic Wlo106 ALK PHOS 57 U/L 11/07/2016 Comp Metabolic Kpu185 AST(SGOT) 24 U/L 11/07/2016 Comp Metabolic Sdj616 ALT(SGPT) 28 U/L 11/07/2016 Comp Metabolic Rqw063 BILI T 0.4 mg/dL 11/07/2016 Comp Metabolic Vvd673 ALBUMIN 4.2 g/dL 11/07/2016 Comp Metabolic Zfp682 TPRO 7.0 g/dL 11/07/2016 Comp Metabolic Kyu580 GLOB 2.8 g/dL 11/07/2016 Comp Metabolic Gwc435 A/G Ratio 1.5 Ratio 11/07/2016 Comp Metabolic Mkc470 Osmo 286 mOsmo 11/07/2016 Free T4 Rks995 FREE T4 0.75 ng/dL 11/07/2016 Tsh Ord6 hTSH II 3.46 uIU/mL 11/07/2016 Comp Metabolic Bqj268 NA 138 mEq/L 05/10/2016 Comp Metabolic Aqm956 K 3.8 mEq/L 05/10/2016 Comp Metabolic Njt725 CL 102 mEq/L 05/10/2016 Comp Metabolic Tks872 CO2 29.0 mEq/L 05/10/2016 Comp Metabolic Gma105 ANION GAP 11 05/10/2016 Comp Metabolic Ans718 GLUCOSE 107 mg/dL 05/10/2016 Comp Metabolic Mek864 Creat 0.7 mg/dL 05/10/2016 Comp Metabolic Owq409 eGFR 93 ml/min/1.73m2 05/10/2016 Comp Metabolic Lgd936 BUN 18 mg/dL 05/10/2016 Comp Metabolic Vbq375 B/C Ratio 26.9 Ratio 05/10/2016 Comp Metabolic Zqa149 CALCIUM 9.8 mg/dL 05/10/2016 Comp Metabolic Xmw236 ALK PHOS 60 U/L 05/10/2016 Comp Metabolic Bcj515 AST(SGOT) 21 U/L 05/10/2016 Comp Metabolic Hok521 ALT(SGPT) 23 U/L 05/10/2016 Comp Metabolic Rea457 BILI T 0.5 mg/dL 05/10/2016 Comp Metabolic Boj710 ALBUMIN 4.1 g/dL 05/10/2016 Comp Metabolic Hew733 TPRO 6.7 g/dL 05/10/2016 Comp Metabolic Khy477 GLOB 2.7 g/dL 05/10/2016 Comp Metabolic Xuf305 A/G Ratio 1.5 Ratio 05/10/2016 Comp Metabolic Fca116 Osmo 278 mOsmo 05/10/2016 Lipid Ord30 CHOL 169 mg/dL 05/10/2016 Lipid Ord30 HDL 50.0 mg/dl 05/10/2016 Lipid Ord30 TRIG 161 mg/dL 05/10/2016 Lipid Ord30 LDL 87 mg/dL 05/10/2016 Lipid Ord30 C/HDL 3.4 Ratio 05/10/2016 Comp Metabolic Peq644 NA 137 mEq/L 06/12/2015 Comp Metabolic Zol968 K 3.8 mEq/L 06/12/2015 Comp Metabolic Rpb974 CL 104 mEq/L 06/12/2015 Comp Metabolic Cxm678 CO2 24.0 mEq/L 06/12/2015 Comp Metabolic Poh178 ANION GAP 13 06/12/2015 Comp Metabolic Imq511 GLUCOSE 92 mg/dL 06/12/2015 Comp Metabolic Piu483 Creat 0.7 mg/dL 06/12/2015 Comp Metabolic Xyt015 eGFR 87 ml/min/1.73m2 06/12/2015 Comp Metabolic Nit107 BUN 31 mg/dL 06/12/2015 Comp Metabolic Wfm812 B/C Ratio 43.7 Ratio 06/12/2015 Comp Metabolic Oma525 CALCIUM 10.0 mg/dL 06/12/2015 Comp Metabolic Lqh234 ALK PHOS 58 U/L 06/12/2015 Comp Metabolic Esd498 AST(SGOT) 32 U/L 06/12/2015 Comp Metabolic Rud048 ALT(SGPT) 33 U/L 06/12/2015 Comp Metabolic Flo796 BILI T 0.5 mg/dL 06/12/2015 Comp Metabolic Cmm578 ALBUMIN 4.1 g/dL 06/12/2015 Comp Metabolic Hnw211 TPRO 6.6 g/dL 06/12/2015 Comp Metabolic Nwm348 GLOB 2.5 g/dL 06/12/2015 Comp Metabolic Twb196 A/G Ratio 1.6 Ratio 06/12/2015 Comp Metabolic Odl157 Osmo 280 mOsmo 06/12/2015 Cbc With Differential [...] Differential Ord2 RDW 14.2 % 06/12/2015 CBC 7506096 WBC 8.7 10e9/L 04/30/2013 CBC 8310567 RBC 4.63 10e12/L 04/30/2013 CBC 0037201 HGB 14.1 g/dL 04/30/2013 CBC 3209971 HCT DET 42.2 % 04/30/2013 CBC 9583182 MCV 91.1 fL 04/30/2013 CBC 1211715 MCH 30.5 pg 04/30/2013 CBC 7630317 MCHC 33.4 g/dL 04/30/2013 CBC 3848916 PLT 248 10e9/L 04/30/2013 CBC 5687574 MPV 12.1 fL 04/30/2013 CBC 4437776 LARA % 59.0 % 04/30/2013 CBC 6322274 LY % 27.6 % 04/30/2013 CBC 3225101 MON % 8.0 % 04/30/2013 CBC 3992069 EOS % 4.8 % 04/30/2013 CBC 0529918 BASO % 0.6 % 04/30/2013 CBC 7083421 RDW 13.3 % 04/30/2013 CBC 5637703 ABS LARA 5.13 10e9/L 04/30/2013 CBC 8956084 ABS LYMPH 2.40 10e9/L 04/30/2013 CBC 1056165 ABS MONO 0.70 10e9/L 04/30/2013 CBC 8891678 ABS EOS 0.42 10e9/L 04/30/2013 CBC 7589052 ABS BASO 0.05 10e9/L 04/30/2013 CBC 8159748 RDW-SD 43.1 fL 04/30/2013 TSH 1679144 TSH 4.339 uIU/ML 04/30/2013 A1C HPLC 0627316 A1C HPLC 90134-6 5.6 % 04/30/2013 FREE T4 0251344 FREE T4 0.84 NG/DL 04/30/2013 GFR CALC 8107005 GFR AA >60 ML/MIN 04/30/2013 GFR CALC 5631200 GFR NON-AA >60 ML/MIN 04/30/2013 CHEM 14 2256930 AST 22 U/L 04/30/2013 CHEM 14 8491712 ALT 22 IU/L 04/30/2013 CHEM 14 4824424 BUN 24 MG/DL 04/30/2013 CHEM 14 1523412 ALBUMIN 4.2 GM/DL 04/30/2013 CHEM 14 2178658 CHLORIDE 107 MMOL/L 04/30/2013 CHEM 14 4750017 BILI TOT 0.3 MG/DL 04/30/2013 CHEM 14 2261462 ALK PHOS 88 U/L 04/30/2013 CHEM 14 7010517 SODIUM 141 MMOL/L 04/30/2013 CHEM 14 6265935 CREATININE 0.60 MG/DL 04/30/2013 CHEM 14 9834506 CALCIUM 9.9 MG/DL 04/30/2013 CHEM 14 9904841 POTASSIUM 3.7 MMOL/L 04/30/2013 CHEM 14 0059437 PROT TOT 6.6 GM/DL 04/30/2013 CHEM 14 9393660 GLUCOSE 123 MG/DL 04/30/2013 CHEM 14 2396216 BICARB 25 MMOL/L 04/30/2013 CHEM 14 4344341 ANION GAP 9 MEQ/L 04/30/2013 LIPID GRP HDL TEST 46 MG/DL 04/30/2013 LIPID GRP TRIG 148 MG/DL 04/30/2013 LIPID GRP TEST LDL 75 MG/DL 04/30/2013 LIPID GRP CHOL 151 MG/DL 04/30/2013 LIPID GRP RCHOL/HDL 3.28 RATIO 04/30/2013 TSH 0789106 TSH 3.341 uIU/ML 11/29/2012 CBC 5365594 WBC 8.4 10e9/L 11/29/2012 CBC 4714952 RBC 4.77 10e12/L 11/29/2012 CBC 7285906 HGB 14.9 g/dL 11/29/2012 CBC 1997216 HCT DET 44.2 % 11/29/2012 CBC 0224921 MCV 92.7 fL 11/29/2012 CBC 1737535 MCH 31.2 pg 11/29/2012 CBC 3293732 MCHC 33.7 g/dL 11/29/2012 CBC 3386934 PLT 253 10e9/L 11/29/2012 CBC 7502108 MPV 11.8 fL 11/29/2012 CBC 9957588 LARA % 54.9 % 11/29/2012 CBC 8616859 LY % 29.0 % 11/29/2012 CBC 2655329 MON % 10.4 % 11/29/2012 CBC 0410464 EOS % 5.1 % 11/29/2012 CBC 8452438 BASO % 0.6 % 11/29/2012 CBC 9598165 RDW 13.8 % 11/29/2012 CBC 6756176 ABS LARA 4.61 10e9/L 11/29/2012 CBC 4492184 ABS LYMPH 2.44 10e9/L 11/29/2012 CBC 2837667 ABS MONO 0.87 10e9/L 11/29/2012 CBC 6033790 ABS EOS 0.43 10e9/L 11/29/2012 CBC 9514268 ABS BASO 0.05 10e9/L 11/29/2012 CBC 1141769 RDW-SD 45.9 fL 11/29/2012 CHEM 14 6586120 AST 25 U/L 11/29/2012 CHEM 14 4682400 ALT 26 IU/L 11/29/2012 CHEM 14 2431690 BUN 25 MG/DL 11/29/2012 CHEM 14 6484809 ALBUMIN 4.4 GM/DL 11/29/2012 CHEM 14 1530206 CHLORIDE 106 MMOL/L 11/29/2012 CHEM 14 3788663 BILI TOT 0.4 MG/DL 11/29/2012 CHEM 14 0303386 ALK PHOS 86 U/L 11/29/2012 CHEM 14 6734017 SODIUM 141 MMOL/L 11/29/2012 CHEM 14 6086266 CREATININE 0.80 MG/DL 11/29/2012 CHEM 14 2371828 CALCIUM 9.7 MG/DL 11/29/2012 CHEM 14 5466356 POTASSIUM 4.0 MMOL/L 11/29/2012 CHEM 14 0559803 PROT TOT 6.6 GM/DL 11/29/2012 CHEM 14 3910841 GLUCOSE 112 MG/DL 11/29/2012 CHEM 14 6223082 BICARB 29 MMOL/L 11/29/2012 CHEM 14 9475571 ANION GAP 6 MEQ/L 11/29/2012 A1C HPLC 4381394 A1C HPLC 59948-4 5.5 % 11/29/2012 LIPID GRP HDL TEST 54 MG/DL 11/29/2012 LIPID GRP TRIG 77 MG/DL 11/29/2012 LIPID GRP TEST LDL 78 MG/DL 11/29/2012 LIPID GRP CHOL 147 MG/DL 11/29/2012 LIPID GRP RCHOL/HDL 2.72 RATIO 11/29/2012 FREE T4 4591396 FREE T4 1.23 NG/DL 11/29/2012 GFR CALC 0551798 GFR AA >60 ML/MIN 11/29/2012 GFR CALC 9785668 GFR NON-AA >60 ML/MIN 11/29/2012 CHEM 14 8292155 AST 23 U/L 08/07/2012 CHEM 14 9134754 ALT 34 IU/L 08/07/2012 CHEM 14 0142218 BUN 26 MG/DL 08/07/2012 CHEM 14 8394989 ALBUMIN 4.4 GM/DL 08/07/2012 CHEM 14 3080232 CHLORIDE 105 MMOL/L 08/07/2012 CHEM 14 4211296 BILI TOT 0.5 MG/DL 08/07/2012 CHEM 14 2268968 ALK PHOS 79 U/L 08/07/2012 CHEM 14 1400332 SODIUM 140 MMOL/L 08/07/2012 CHEM 14 8231939 CREATININE 0.71 MG/DL 08/07/2012 CHEM 14 6066069 CALCIUM 10.4 MG/DL 08/07/2012 CHEM 14 8202075 POTASSIUM 3.8 MMOL/L 08/07/2012 CHEM 14 1066635 PROT TOT 6.8 GM/DL 08/07/2012 CHEM 14 8054996 GLUCOSE 104 MG/DL 08/07/2012 CHEM 14 9450443 BICARB 27 MMOL/L 08/07/2012 CHEM 14 4494861 ANION GAP 8 MEQ/L 08/07/2012 A1C HPLC 7741035 A1C HPLC 14227-8 5.4 % 08/07/2012 FREE T4 9399329 FREE T4 1.11 NG/DL 08/07/2012 LIPID GRP HDL TEST 50 MG/DL 08/07/2012 LIPID GRP TRIG 127 MG/DL 08/07/2012 LIPID GRP TEST LDL 93 MG/DL 08/07/2012 LIPID GRP CHOL 168 MG/DL 08/07/2012 LIPID GRP RCHOL/HDL 3.36 RATIO 08/07/2012 CBC 9537842 WBC 8.7 10e9/L 08/07/2012 CBC 1510656 RBC 4.67 10e12/L 08/07/2012 CBC 1843357 HGB 14.4 g/dL 08/07/2012 CBC 8058073 HCT DET 42.8 % 08/07/2012 CBC 5057286 MCV 91.6 fL 08/07/2012 CBC 3422487 MCH 30.8 pg 08/07/2012 CBC 1057721 MCHC 33.6 g/dL 08/07/2012 CBC 8581104 PLT 271 10e9/L 08/07/2012 CBC 4844833 MPV 12.3 fL 08/07/2012 CBC 8746351 LARA % 50.6 % 08/07/2012 CBC 1681457 LY % 34.9 % 08/07/2012 CBC 1970376 MON % 9.1 % 08/07/2012 CBC 3816254 EOS % 5.1 % 08/07/2012 CBC 0486068 BASO % 0.3 % 08/07/2012 CBC 9940530 RDW 13.6 % 08/07/2012 CBC 8352896 ABS LARA 4.40 10e9/L 08/07/2012 CBC 2741833 ABS LYMPH 3.04 10e9/L 08/07/2012 CBC 6797199 ABS MONO 0.79 10e9/L 08/07/2012 CBC 2309270 ABS EOS 0.44 10e9/L 08/07/2012 CBC 4313174 ABS BASO 0.03 10e9/L 08/07/2012 CBC 4143034 RDW-SD 44.1 fL 08/07/2012 TSH 6706985 TSH 7.419 uIU/ML 08/07/2012 GFR CALC 2337617 GFR AA >60 ML/MIN 08/07/2012 GFR CALC 7638460 GFR NON-AA >60 ML/MIN 08/07/2012 A1C HPLC 7787180 A1C HPLC 28971-5 5.3 % 02/21/2012 TSH 9109765 TSH 0.832 uIU/ML 02/16/2012 FREE T4 0384106 FREE T4 1.04 NG/DL 02/16/2012 GFR CALC 7964537 GFR AA >60 ML/MIN 02/16/2012 GFR CALC 5680780 GFR NON-AA >60 ML/MIN 02/16/2012 [facility] GLUCOSE 112 MG/DL 02/16/2012 BMP CREATININE 0.65 MG/DL 02/16/2012 BMP BUN 17 MG/DL 02/16/2012 BMP SODIUM 144 MMOL/L 02/16/2012 BMP POTASSIUM 4.0 MMOL/L 02/16/2012 BMP CHLORIDE 107 MMOL/L 02/16/2012 BMP BICARB 29 MMOL/L 02/16/2012 BMP ANION GAP 8 MEQ/L 02/16/2012 BMP CALCIUM 9.5 MG/DL 02/16/2012 CBC 2963265 WBC 7.1 10e9/L 02/16/2012 CBC 3255532 RBC 4.47 10e12/L 02/16/2012 CBC 1860758 HGB 13.5 g/dL 02/16/2012 CBC 2475473 HCT DET 40.7 % 02/16/2012 CBC 0129518 MCV 91.1 fL 02/16/2012 CBC 7047764 MCH 30.2 pg 02/16/2012 CBC 8315577 MCHC 33.2 g/dL 02/16/2012 CBC 5899461 PLT 238 10e9/L 02/16/2012 CBC 0655852 MPV 11.4 fL 02/16/2012 CBC 2877546 LARA % 55.7 % 02/16/2012 CBC 4249508 LY % 29.6 % 02/16/2012 CBC 1153995 MON % 9.2 % 02/16/2012 CBC 5942095 EOS % 5.1 % 02/16/2012 CBC 6416610 BASO % 0.4 % 02/16/2012 CBC 2535896 RDW 13.0 % 02/16/2012 CBC 6975340 ABS LARA 3.95 10e9/L 02/16/2012 CBC 1560018 ABS LYMPH 2.10 10e9/L 02/16/2012 CBC 9608827 ABS MONO 0.65 10e9/L 02/16/2012 CBC 9505082 ABS EOS 0.36 10e9/L 02/16/2012 CBC 4132768 ABS BASO 0.03 10e9/L 02/16/2012 CBC 7289507 RDW-SD 42.4 fL 02/16/2012 URINALYSIS NONAUTO W/O SCOPE 24256 Specific [place] 1.015 DateTime(Free Text in Aprima) URINALYSIS NONAUTO W/O SCOPE 47562 PH 7 DateTime(Free Text in Aprima) URINALYSIS NONAUTO W/O SCOPE 22315 GLUCOSE neg DateTime(Free Text in Aprima) URINALYSIS NONAUTO W/O SCOPE 33577 Protein 1+ DateTime(Free Text in Aprima) URINALYSIS NONAUTO W/O SCOPE 80561 Blood neg DateTime(Free Text in Aprima) URINALYSIS NONAUTO W/O SCOPE 45948 Bilirubin neg DateTime(Free Text in Aprima) URINALYSIS NONAUTO W/O SCOPE 77018 Ketones neg DateTime(Free Text in Aprima) URINALYSIS NONAUTO W/O SCOPE 65304 Urobilinogen neg DateTime(Free Text in Aprima) URINALYSIS NONAUTO W/O SCOPE 07289 Nitrite postive DateTime(Free Text in Aprima) URINALYSIS NONAUTO W/O SCOPE 16331 Leukocytes 3+ DateTime(Free Text in Aprima) URINALYSIS NONAUTO W/O SCOPE 89955 Specific [place] 1.030 DateTime(Free Text in Aprima) URINALYSIS NONAUTO W/O SCOPE 04609 PH 6 DateTime(Free Text in Aprima) URINALYSIS NONAUTO W/O SCOPE 72607 GLUCOSE neg DateTime(Free Text in Aprima) URINALYSIS NONAUTO W/O SCOPE 63653 Protein neg DateTime(Free Text in Aprima) URINALYSIS NONAUTO W/O SCOPE 46068 Blood neg DateTime(Free Text in Aprima) URINALYSIS NONAUTO W/O SCOPE 46964 Bilirubin neg DateTime(Free Text in Aprima) URINALYSIS NONAUTO W/O SCOPE 73715 Ketones neg DateTime(Free Text in Aprima) URINALYSIS NONAUTO W/O SCOPE 40214 Urobilinogen neg DateTime(Free Text in Aprima) URINALYSIS NONAUTO W/O SCOPE 39404 Nitrite neg DateTime(Free Text in Aprima) URINALYSIS NONAUTO W/O SCOPE 65388 Leukocytes trace DateTime(Free Text in Aprima) URINALYSIS NONAUTO W/O SCOPE 99840 Specific [place] 1.005 DateTime(Free Text in Aprima) URINALYSIS NONAUTO W/O SCOPE 78517 PH 5 DateTime(Free Text in Aprima) URINALYSIS NONAUTO W/O SCOPE 96417 GLUCOSE neg DateTime(Free Text in Aprima) URINALYSIS NONAUTO W/O SCOPE 73021 Protein neg DateTime(Free Text in Aprima) URINALYSIS NONAUTO W/O SCOPE 39590 Blood neg DateTime(Free Text in Aprima) URINALYSIS NONAUTO W/O SCOPE 27117 Bilirubin neg DateTime(Free Text in Aprima) URINALYSIS NONAUTO W/O SCOPE 50421 Ketones neg DateTime(Free Text in Aprima) URINALYSIS NONAUTO W/O SCOPE 83417 Urobilinogen neg DateTime(Free Text in Aprima) URINALYSIS NONAUTO W/O SCOPE 30280 Nitrite neg DateTime(Free Text in Aprima) URINALYSIS NONAUTO W/O SCOPE 92254 Leukocytes neg DateTime(Free Text in Aprima) UA 27024 Specific [place] 1.030 DateTime(Free Text in Aprima) UA 88590 PH 5 DateTime(Free Text in Aprima) UA 90355 GLUCOSE neg DateTime(Free Text in Aprima) UA 93748 Protein trace DateTime(Free Text in Aprima) UA 73861 Blood large DateTime(Free Text in Aprima) UA 69372 Bilirubin neg DateTime(Free Text in Aprima) UA 71037 Ketones neg DateTime(Free Text in Aprima) UA 05485 Urobilinogen neg DateTime(Free Text in Aprima) UA 95121 Nitrite neg DateTime(Free Text in Aprima) UA 62317 Leukocytes large DateTime(Free Text in Aprima) Review [...] posture 11/10/2011 None Full Exam - General 1995 [...] Codes Date URINALYSIS NONAUTO W/O SCOPE CPT-4: 25817 07/10/2018 TRIAMCINOLONE ACET INJ NOS CPT-4: J3301 05/28/2018 ROCEPHIN, PER 250 MG CPT- 4: J0696 05/28/2018 ROCEPHIN, PER 250 MG CPT- 4: J0696 01/19/2018 TRIAMCINOLONE ACET INJ NOS CPT-4: J3301 01/19/2018 PPPS, SUBSEQ VISIT CPT- 4: G0439 11/23/2017 TRIAMCINOLONE ACET INJ NOS CPT-4: J3301 06/27/2017 THER/PROPH/DIAG INJ SC/IM CPT-4: 76567 04/20/2017 TRIAMCINOLONE ACET INJ NOS CPT-4: J3301 04/20/2017 TRIAMCINOLONE ACET INJ NOS CPT-4: J3301 03/14/2017 ROCEPHIN, PER 250 MG CPT- 4: J0696 03/14/2017 DESTRUCT PREMALG LESION CPT-4: 59583 12/05/2016 DESTRUCT PREMALG LES 2-14 CPT-4: 23093 12/05/2016 URINALYSIS NONAUTO W/O SCOPE CPT-4: 86528 11/28/2016 ROCEPHIN, PER 250 MG CPT- 4: J0696 11/28/2016 PPPS, SUBSEQ VISIT CPT- 4: G0439 11/07/2016 THER/PROPH/DIAG INJ SC/IM CPT-4: 34785 11/07/2016 TRIAMCINOLONE ACET INJ NOS CPT-4: J3301 11/07/2016 ROCEPHIN, PER 250 MG CPT- 4: J0696 11/07/2016 THER/PROPH/DIAG INJ SC/IM CPT-4: 39084 08/15/2016 TRIAMCINOLONE ACET INJ NOS CPT-4: J3301 08/15/2016 ROCEPHIN, PER 250 MG CPT- 4: J0696 08/15/2016 URINALYSIS NONAUTO W/O SCOPE CPT-4: 63407 05/05/2016 ROCEPHIN, PER 250 MG CPT- 4: J0696 12/07/2015 TRIAMCINOLONE ACET INJ NOS CPT-4: J3301 11/24/2015 ROCEPHIN, PER 250 MG CPT- 4: J0696 11/24/2015 THER/PROPH/DIAG INJ SC/IM CPT-4: 67051 11/24/2015 THER/PROPH/DIAG INJ SC/IM CPT-4: 87501 08/27/2015 KETOROLAC TROMETHAMINE INJ CPT-4: J1885 08/27/2015 PROMETHAZINE HCL INJECTION CPT-4: J2550 08/27/2015 THER/PROPH/DIAG INJ SC/IM CPT-4: 06709 08/10/2015 TRIAMCINOLONE ACET INJ NOS CPT-4: J3301 08/10/2015 ROCEPHIN, PER 250 MG CPT- 4: J0696 08/10/2015 C WOUN RTS (CULTURE OTHR SPECIMN AEROBIC) CPT-4: 45364 07/28/2015 THER/PROPH/DIAG INJ SC/IM CPT-4: 05645 03/19/2015 TRIAMCINOLONE ACET INJ NOS CPT-4: J3301 03/19/2015 ROCEPHIN, PER 250 MG CPT- 4: J0696 06/23/2014 TRIAMCINOLONE ACET INJ NOS CPT-4: J3301 06/23/2014 INJ TRIGGER POINT 1/2 MUSCL CPT-4: 10124 06/05/2014 URINALYSIS NONAUTO W/O SCOPE CPT-4: 64305 02/11/2014 URINALYSIS NONAUTO W/O SCOPE CPT-4: 95279 10/15/2013 ROCEPHIN, PER 250 MG CPT- 4: J0696 09/24/2013 THER/PROPH/DIAG INJ SC/IM CPT-4: 17752 09/19/2013 ROCEPHIN, PER 250 MG CPT- 4: J0696 09/19/2013 PRESCRIP TRANSMIT VIA ERX SY CPT-4: G8553 08/05/2013 ROCEPHIN, PER 250 MG CPT- 4: J0696 07/10/2013 THER/PROPH/DIAG INJ SC/IM CPT-4: 86790 07/10/2013 TRIAMCINOLONE ACET INJ NOS CPT-4: J3301 07/10/2013 PRESCRIP TRANSMIT VIA ERX SY CPT-4: G8553 07/10/2013 24792 EST. PATIENT, LEVEL III CPT-4: 41108 06/03/2013 PRESCRIP TRANSMIT VIA ERX SY CPT-4: G8553 06/03/2013 PRESCRIP TRANSMIT VIA ERX SY CPT-4: G8553 05/07/2013 ROUTINE VENIPUNCTURE CPT- 4: 13775 04/30/2013 ROUTINE VENIPUNCTURE CPT- 4: 34998 11/29/2012 TRIAMCINOLONE ACET INJ NOS CPT-4: J3301 09/24/2012 THER/PROPH/DIAG INJ SC/IM CPT-4: 15621 09/24/2012 URINALYSIS NONAUTO W/O SCOPE CPT-4: 06613 09/24/2012 PRESCRIP TRANSMIT VIA ERX SY CPT-4: G8553 09/24/2012 PRESCRIP TRANSMIT VIA ERX SY CPT-4: G8553 09/10/2012 PRESCRIP TRANSMIT VIA ERX SY CPT-4: G8553 08/08/2012 ROUTINE VENIPUNCTURE CPT- 4: 45182 08/07/2012 ROUTINE VENIPUNCTURE CPT- 4: 33167 02/16/2012 URINALYSIS NONAUTO W/O SCOPE CPT-4: 96518 02/15/2012 ROCEPHIN, PER 250 MG CPT- 4: J0696 02/15/2012 PRESCRIP TRANSMIT VIA ERX SY CPT-4: G8553 02/15/2012 ROUTINE VENIPUNCTURE CPT- 4: 52126 11/08/2011 ROCEPHIN, PER 250 MG CPT- 4: J0696 07/14/2011 THER/PROPH/DIAG INJ SC/IM CPT-4: 08030 07/14/2011 Influenza Virus Vaccine, Split Virus, >3 Yrs, IM CPT-4: 20024 05/23/2011 IMMUNIZATION ADMIN CPT- 4: 12969 05/23/2011 THER/PROPH/DIAG INJ SC/IM CPT-4: 50169 05/03/2011 ROCEPHIN, PER 250 MG CPT- 4: J0696 05/03/2011 TRIAMCINOLONE ACET INJ NOS CPT-4: J3301 05/03/2011 Vital Signs Date Vital 10/08/2018 Blood Pressure 1: 140/80 Code: 8480-6 BMI: 32.1 Code: 69058-8 Heart Rate 1: 92 bpm Height: 4'11" SpO2: 103% Weight: 159 lbs 07/16/2018 Blood Pressure 1: 142/80 Code: 8480-6 BMI: 31.1 Code: 88108-8 Heart Rate 1: 78 bpm Height: 4'11" SpO2: 98% Weight: 154 lbs 07/10/2018 Blood Pressure 1: 156/82 Code: 8480-6 BMI: 31.1 Code: 84080-0 Heart Rate 1: 63 bpm Height: 4'11" SpO2: 99% Weight: 154 lbs 05/28/2018 Blood Pressure 1: 142/80 Code: 8480-6 Heart Rate 1: 82 bpm Height: SpO2: 97% Temperature: 35.9 (C) / 96.6 (F) Weight: 02/07/2018 Height: Weight: 01/19/2018 Blood Pressure 1: 128/76 Code: 8480-6 BMI: 31.2 Code: 73050-8 Heart Rate 1: 71 bpm Height: 4'11" SpO2: 96% Temperature: 36.5 (C) / 97.7 (F) Weight: 154 lbs 8 oz 11/23/2017 Blood Pressure 1: 146/80 Code: 8480-6 BMI: 31.7 Code: 99553-5 Heart Rate 1: 64 bpm Height: 4'11" SpO2: 97% Waist Measure (cm): 89 cm Weight: 157 lbs 09/12/2017 Blood Pressure 1: 140/86 Code: 8480-6 Heart Rate 1: 62 bpm SpO2: 96% Temperature: 36.6 (C) / 97.8 (F) Weight: 153 lbs 07/25/2017 Blood Pressure 1: 140/72 Code: 8480-6 BMI: 31.3 Code: 86569-9 Heart Rate 1: 76 bpm Height: 4'11" SpO2: 97% Temperature: 37.2 (C) / 99.0 (F) Weight: 155 lbs 06/27/2017 Blood Pressure 1: 144/84 Code: 8480-6 BMI: 31.1 Code: 41070-8 Heart Rate 1: 63 bpm Height: 4'11" SpO2: 99% Temperature: 36.4 (C) / 97.6 (F) Weight: 154 lbs 05/08/2017 Blood Pressure 1: 142/86 Code: 8480-6 BMI: 30.9 Code: 79234-7 Height: 4'11" Temperature: 36.3 (C) / 97.4 (F) Weight: 153 lbs 03/14/2017 Blood Pressure 1: 146/82 Code: 8480-6 BMI: 30.9 Code: 55569-7 Heart Rate 1: 64 bpm Height: 4'11" SpO2: 94% Weight: 153 lbs 02/20/2017 Blood Pressure 1: 142/80 Code: 8480-6 BMI: 30.9 Code: 24637-4 Heart Rate 1: 75 bpm Height: 4'11" SpO2: 97% Weight: 153 lbs 02/06/2017 Blood Pressure 1: 138/90 Code: 8480-6 BMI: 31.5 Code: 38696-1 Heart Rate 1: 61 bpm Height: 4'11" SpO2: 98% Weight: 156 lbs 12/05/2016 Blood Pressure 1: 122/72 Code: 8480-6 Heart Rate 1: 59 bpm Height: 4'11" SpO2: 98% Weight: 11/28/2016 Blood Pressure 1: 154/86 Code: 8480-6 BMI: 31.3 Code: 60880-8 Heart Rate 1: 64 bpm Height: 4'11" SpO2: 94% Temperature: 36.2 (C) / 97.2 (F) Weight: 155 lbs 11/07/2016 Blood Pressure 1: 128/64 Code: 8480-6 BMI: 31.5 Code: 07213-4 Heart Rate 1: 59 bpm Height: 4'11" SpO2: 97% Weight: 156 lbs 08/15/2016 Blood Pressure 1: 110/62 Code: 8480-6 BMI: 31.5 Code: 10578-8 Heart Rate 1: 76 bpm Height: 4'11" SpO2: 97% Weight: 156 lbs 06/07/2016 Blood Pressure 1: 120/80 Code: 8480-6 BMI: 32.9 Code: 51827-7 Heart Rate 1: 63 bpm Height: 4'11" SpO2: 93% Temperature: 36.5 (C) / 97.7 (F) Weight: 163 lbs 03/15/2016 Blood Pressure 1: 90/42 Code: 8480-6 Heart Rate 1: 65 bpm SpO2: 94% 03/14/2016 Blood Pressure 1: 188/110 Code: 8480-6 Heart Rate 1: 68 bpm SpO2: 96% 02/22/2016 Blood Pressure 1: 158/80 Code: 8480-6 BMI: 32.7 Code: 02916-6 Heart Rate 1: 71 bpm Height: 4'11" SpO2: 95% Weight: 162 lbs 12/07/2015 Blood Pressure 1: 140/88 Code: 8480-6 BMI: 32.9 Code: 95615-8 Heart Rate 1: 99 bpm Height: 4'11" SpO2: 94% Temperature: 35.9 (C) / 96.6 (F) Weight: 163 lbs 11/24/2015 Blood Pressure 1: 144/78 Code: 8480-6 BMI: 33.7 Code: 06153-3 Heart Rate 1: 60 bpm Height: 4'11" SpO2: 98% Temperature: 36.6 (C) / 97.9 (F) Weight: 167 lbs 08/27/2015 Blood Pressure 1: 164/82 Code: 8480-6 BMI: 32.3 Code: 21308-4 Heart Rate 1: 60 bpm Height: 4'11" SpO2: 93% Weight: 160 lbs 08/10/2015 Blood Pressure 1: 130/60 Code: 8480-6 BMI: 32.5 Code: 24740-0 Heart Rate 1: 64 bpm Height: 4'11" SpO2: 97% Weight: 161 lbs 07/28/2015 Blood Pressure 1: 124/68 Code: 8480-6 BMI: 32.5 Code: 19734-2 Heart Rate 1: 69 bpm Height: 4'11" SpO2: 97% Weight: 161 lbs 06/11/2015 Blood Pressure 1: 148/80 Code: 8480-6 BMI: 32.9 Code: 37753-8 Heart Rate 1: 70 bpm Height: 4'11" SpO2: 94% Weight: 163 lbs 03/19/2015 Blood Pressure 1: 150/102 Code: 8480-6 Blood Pressure 2: 152/92 Code: 8480-6 BMI: 32.5 Code: 12246-1 Heart Rate 1: 71 bpm Height: 4'11" SpO2: 96% Weight: 161 lbs 01/07/2015 Blood Pressure 1: 126/84 Code: 8480-6 Heart Rate 1: 80 bpm Height: 4'11" 09/23/2014 Blood Pressure 1: 112/72 Code: 8480-6 BMI: 33.9 Code: 86345-8 Heart Rate 1: 72 bpm Height: 4'11" Weight: 168 lbs 08/05/2014 Blood Pressure 1: 140/86 Code: 8480-6 BMI: 33.3 Code: 92690-4 Height: 4'11" Weight: 165 lbs 06/23/2014 Blood Pressure 1: 132/70 Code: 8480-6 BMI: 32.9 Code: 33918-4 Heart Rate 1: 58 bpm Height: 4'11" Temperature: 36.0 (C) / 96.8 (F) Weight: 163 lbs 06/05/2014 Blood Pressure 1: 121/85 Code: 8480-6 BMI: 34.3 Code: 12537-6 Height: 4'11" Weight: 170 lbs 04/03/2014 Blood Pressure 1: 128/80 Code: 8480-6 Heart Rate 1: 88 bpm Weight: 167 lbs 03/07/2014 Blood Pressure 1: 122/82 Code: 8480-6 BMI: 33.9 Code: 32928-2 Heart Rate 1: 68 bpm Height: 4'11" Weight: 168 lbs 11/21/2013 Blood Pressure 1: 100/58 Code: 8480-6 BMI: 33.7 Code: 83763-2 Heart Rate 1: 64 bpm Height: 4'11" Weight: 167 lbs 09/24/2013 Blood Pressure 1: 148/88 Code: 8480-6 Heart Rate 1: 68 bpm Weight: 09/19/2013 Blood Pressure 1: 120/80 Code: 8480-6 BMI: 33.9 Code: 78167-7 Heart Rate 1: 80 bpm Height: 4'11" Temperature: 36.9 (C) / 98.5 (F) Weight: 168 lbs 08/05/2013 Blood Pressure 1: 128/80 Code: 8480-6 BMI: 34.3 Code: 17469-5 Heart Rate 1: 64 bpm Height: 4'11" Temperature: 36.2 (C) / 97.2 (F) Weight: 170 lbs 07/10/2013 Blood Pressure 1: 120/84 Code: 8480-6 BMI: 36.0 Code: 24532-8 Heart Rate 1: 90 bpm Height: 4'11" SpO2: 97% Temperature: 36.8 (C) / 98.2 (F) Weight: 178 lbs 06/03/2013 Blood Pressure 1: 136/94 Code: 8480-6 BMI: 34.7 Code: 36037-4 Heart Rate 1: 68 bpm Height: 4'11" Temperature: 36.7 (C) / 98.0 (F) Weight: 172 lbs 05/13/2013 Blood Pressure 1: 132/90 Code: 8480-6 Heart Rate 1: 68 bpm 05/07/2013 Blood Pressure 1: 168/100 Code: 8480-6 BMI: 34.3 Code: 03625-0 Heart Rate 1: 76 bpm Height: 4'11" Weight: 170 lbs 12/03/2012 Blood Pressure 1: 142/78 Code: 8480-6 BMI: 33.5 Code: 94335-5 Heart Rate 1: 76 bpm Height: 4'11" Weight: 166 lbs 09/24/2012 Blood Pressure 1: 116/70 Code: 8480-6 Heart Rate 1: 68 bpm Respiratory Rate: 16 bpm Temperature: 36.9 (C) / 98.4 (F) Weight: 162 lbs 09/10/2012 Blood Pressure 1: 116/80 Code: 8480-6 BMI: 33.7 Code: 38974-1 Heart Rate 1: 76 bpm Height: 4'11" [...] 1: 149/85 Code: 8480-6 BMI: 32.9 Code: 71414-7 Heart Rate 1: 79 bpm Height: 4'11" Weight: 164 lbs 05/03/2011 Blood Pressure 1: 122/79 Code: 8480-6 BMI: 30.8 Code: 64326-5 Heart Rate 1: 72 bpm Height: 5'1" Weight: 163 lbs 04/25/2011 Blood Pressure 1: 137/84 Code: 8480-6 BMI: 31.0 Code: 66116-0 Heart Rate 1: 63 bpm Height: 5'1" [...] surg in december. then took trip to [facility] to see mother and has had [...] Quality chronic 08/01/2011 states went shopping on [employer] [place] over night without taking any of medications [...] data Encounters Encounter Performer Location Codes Date 45510 EST. PATIENT, LEVEL III Diagnosis: Other mucopurulent conjunctivitis, bilateral[ICD10: H10.023] Diagnosis: Other allergic rhinitis[ICD10: J30.89] Shahida Goldman MD, [facility] CPT-4: 99881 10/08/2018 86706 EST. PATIENT, LEVEL III Diagnosis: Essential (primary) hypertension[ICD10: I10] Diagnosis: Generalized anxiety disorder[ICD10: F41.1] Isabelle Goldman MD, [facility] CPT-4: 87758 07/16/2018 ([id number]) 87084 EST. PATIENT, LEVEL III Diagnosis: Acute recurrent maxillary sinusitis[ICD10: J01.01] Diagnosis: Frequency of micturition[ICD10: R35.0] Diagnosis: Low back pain[ICD10: M54.5] Shahida Goldman MD, [facility] CPT-4: 55065 07/10/2018 ([id number]) 33922 EST. PATIENT, LEVEL III Diagnosis: Acute recurrent maxillary sinusitis[ICD10: J01.01] Shahida Goldman MD, [facility] CPT-4: 55127 05/28/2018 ([id number]) Miscellaneous no charge Diagnosis: Laceration without foreign body, left lower leg, subsequent encounter[ICD10: S81.812D] Diagnosis: Laceration without foreign body, right lower leg, subsequent encounter[ICD10: S81.811D] [facility] CPT-4: 30303 02/08/2018 87052 EST. PATIENT, LEVEL III Diagnosis: Cellulitis of left lower limb[ICD10: L03.116] Diagnosis: Cellulitis of right lower limb[ICD10: L03.115] Diagnosis: Laceration without foreign body, left lower leg, initial encounter[ICD10: S81.812A] Diagnosis: Laceration without foreign body, right lower leg, initial encounter[ICD10: S81.811A] Isabelle Goldman MD, [facility] CPT-4: 83376 02/07/2018 ([id number]) 00858 EST. PATIENT, LEVEL IV Diagnosis: Primary generalized (osteo)arthritis[ICD10: M15.0] Diagnosis: Acute recurrent maxillary sinusitis[ICD10: J01.01] Diagnosis: Low back pain[ICD10: M54.5] Diagnosis: Other allergic rhinitis[ICD10: J30.89] Diagnosis: Obstructive sleep apnea (adult) (pediatric)[ICD10: G47.33] Shahida Goldman MD, [facility] CPT-4: 13139 01/19/2018 [id number] EST. PATIENT, LEVEL IV Diagnosis: Diarrhea, unspecified[ICD10: R19.7] Diagnosis: Generalized abdominal pain[ICD10: R10.84] Diagnosis: Other allergic rhinitis[ICD10: J30.89] Diagnosis: Other acute sinusitis[ICD10: J01.80] Isabelle Goldman MD, [facility] CPT- 4: 89935 09/12/2017 68826 EST. PATIENT, LEVEL III Diagnosis: Acute laryngopharyngitis[ICD10: J06.0] Diagnosis: Other allergic rhinitis[ICD10: J30.89] Diagnosis: Cough[ICD10: R05] Diagnosis: Wheezing[ICD10: R06.2] Isabelle Goldman MD, [facility] CPT-4: 49239 07/25/2017 ([id number]) 86741 EST. PATIENT, LEVEL IV Diagnosis: Acute recurrent maxillary sinusitis[ICD10: J01.01] Diagnosis: Cervicalgia[ICD10: M54.2] Diagnosis: Diarrhea, unspecified[ICD10: R19.7] Shahida Goldman MD, [facility] CPT-4: 83362 06/27/2017 ([id number]) 19189 EST. PATIENT, LEVEL III Diagnosis: Chronic maxillary sinusitis[ICD10: J32.0] Diagnosis: Gastro-esophageal reflux disease without esophagitis[ICD10: K21.9] Shahida Goldman MD, [facility] CPT-4: 70611 05/08/2017 ([id number]) 95778 EST. PATIENT, LEVEL III Diagnosis: Acute recurrent maxillary sinusitis[ICD10: J01.01] Shahida Goldman MD, [facility] CPT-4: 65923 03/14/2017 12568 EST. PATIENT, LEVEL IV Diagnosis: Epigastric pain[ICD10: R10.13] Diagnosis: Left upper quadrant pain[ICD10: R10.12] Diagnosis: Left lower quadrant pain[ICD10: R10.32] Isabelle Goldman MD, [facility] CPT-4: 69325 02/20/2017 ([id number]) 38045 EST. PATIENT, LEVEL IV Diagnosis: Generalized anxiety disorder[ICD10: F41.1] Diagnosis: Major depressive disorder, recurrent, moderate[ICD10: F33.1] Diagnosis: Left upper quadrant pain[ICD10: R10.12] Diagnosis: Epigastric pain[ICD10: R10.13] Diagnosis: Actinic keratosis[ICD10: L57.0] Melba Goldman MD, [facility] CPT-4: 67639 02/06/2017 ([id number]) 67608 EST. PATIENT, LEVEL III Diagnosis: Actinic keratosis[ICD10: L57.0] Diagnosis: Major depressive disorder, recurrent, moderate[ICD10: F33.1] Melba Goldman MD, [facility] CPT-4: 11187 12/05/2016 ([id number]) 93923 EST. PATIENT, LEVEL III Diagnosis: Acute recurrent maxillary sinusitis[ICD10: J01.01] Diagnosis: Dysuria[ICD10: R30.0] Shahida Goldman MD, [facility] CPT-4: 63887 11/28/2016 63132 EST. PATIENT, LEVEL IV Diagnosis: Other acute sinusitis[ICD10: J01.80] Diagnosis: Acute laryngopharyngitis[ICD10: J06.0] Diagnosis: Other allergic rhinitis[ICD10: J30.89] Isabelle Goldman MD, [facility] CPT- 4: 54092 08/15/2016 ([id number]) 56866 EST. PATIENT, LEVEL III Diagnosis: Acute recurrent maxillary sinusitis[ICD10: J01.01] Diagnosis: Low back pain[ICD10: M54.5] Shahida Goldman MD, [facility] CPT-4: 18213 06/07/2016 ([id number]) Miscellaneous no charge Diagnosis: Essential (primary) hypertension[ICD10: I10] Shahida Goldman MD, [facility] CPT-4: 44399 03/15/2016 10986 EST. PATIENT, LEVEL IV Diagnosis: Essential (primary) hypertension[ICD10: I10] Diagnosis: Headache[ICD10: R51] Diagnosis: Generalized anxiety disorder[ICD10: F41.1] Shahida Goldman MD, [facility] CPT-4: 06896 03/14/2016 65937 EST. PATIENT, LEVEL III Diagnosis: Laceration without foreign body, left lower leg, initial encounter[ICD10: S81.812A] Isabelle Goldman MD, [facility] CPT-4: 53622 02/22/2016 ([id number]) 27819 EST. PATIENT, LEVEL III Diagnosis: Acute recurrent maxillary sinusitis[ICD10: J01.01] Diagnosis: Cough[ICD10: R05] Diagnosis: Allergic rhinitis due to pollen[ICD10: J30.1] Shahida Goldman MD, [facility] CPT-4: 72773 12/07/2015 ([id number]) 47205 EST. PATIENT, LEVEL IV Diagnosis: Essential (primary) hypertension[ICD10: I10] Diagnosis: Acute recurrent maxillary sinusitis[ICD10: J01.01] Diagnosis: Generalized anxiety disorder[ICD10: F41.1] Diagnosis: Cervicalgia[ICD10: M54.2] Diagnosis: Generalized intra-abdominal and pelvic swelling, mass and lump[ICD10: R19.07] Melba Goldman MD, [facility] CPT-4: 06348 11/24/2015 99291 EST. PATIENT, LEVEL III Diagnosis: Other migraine, intractable, without status migrainosus[ICD10: G43.819] Isabelle Goldman MD, [facility] CPT-4: 75007 08/27/2015 42971 EST. PATIENT, LEVEL III Diagnosis: Acute recurrent maxillary sinusitis[ICD10: J01.01] Diagnosis: Candidal stomatitis[ICD10: B37.0] Diagnosis: Acute laryngopharyngitis[ICD10: J06.0] Isabelle Goldman MD, [facility] CPT- 4: 17574 08/10/2015 71312 EST. PATIENT, LEVEL III Diagnosis: Superficial foreign body of left hand, initial encounter[ICD10: S60.552A] Melba Goldman MD, [facility] CPT-4: 62155 07/28/2015 ([id number]) 65809 EST. PATIENT, LEVEL III Diagnosis: Essential (primary) hypertension[ICD10: I10] Diagnosis: Tinea cruris[ICD10: B35.6] Diagnosis: Abnormal levels of other serum enzymes[ICD10: R74.8] Shahiad Goldman MD, [facility] CPT-4: 26161 06/11/2015 ([id number]) 33788 EST. PATIENT, LEVEL IV Diagnosis: ESSENTIAL HYPERTENSION[ICD9: 401.9] Diagnosis: Hypothyroid[ICD9: 244.9] Diagnosis: ALLERGIC RHINITIS[ICD9: 477.9] Diagnosis: Anxiety[ICD9: 300.00] Diagnosis: Sleep apnea[ICD9: 780.57] Shahida Goldman MD, [facility] CPT-4: 71038 03/19/2015 ([id number]) 78544 EST. PATIENT, LEVEL III Diagnosis: ACUTE SINUSITIS[ICD9: 461.9] Celi Goldman MD, [facility] CPT-4: 77005 01/07/2015 ([id number]) 51338 EST. PATIENT, LEVEL III Diagnosis: Conjunctivitis[ICD9: 372.30] Shahida Goldman MD, [facility] CPT-4: 13436 09/23/2014 82584 EST. PATIENT, LEVEL II Diagnosis: Noninfected skin tear of leg[ICD9: 891.0] Shahida Goldman MD, [facility] CPT-4: 07219 08/05/2014 ([id number]) 45649 EST. PATIENT, LEVEL III Diagnosis: Chronic maxillary sinusitis[ICD9: 473.0] Shahida Goldman MD, [facility] CPT-4: 34099 06/23/2014 03564 EST. PATIENT, LEVEL II Diagnosis: Headache[ICD9: 784.0] Shahida Goldman MD, [facility] CPT-4: 40224 06/05/2014 ([id number]) 40014 EST. PATIENT, LEVEL III Diagnosis: Abrasion of right leg[ICD9: 916.0] Diagnosis: Headache[ICD9: 784.0] Diagnosis: ALLERGIC RHINITIS[ICD9: 477.9] Shahida Goldman MD, [facility] CPT-4: 62368 04/03/2014 76058 EST. PATIENT, LEVEL II Diagnosis: Tinea corporis[ICD9: 110.5] Diagnosis: Exposure to scabies[ICD9: V01.89] Shahida Goldman MD, [facility] CPT- 4: 71217 03/07/2014 ([id number]) 70649 EST. PATIENT, LEVEL III Diagnosis: ESSENTIAL HYPERTENSION[SNOMED: 85317350] Diagnosis: OSTEOARTH NOS-UNSPEC[ICD9: 715.90] Diagnosis: Lumbago[ICD9: 724.2] Diagnosis: Cervicalgia[ICD9: 723.1] Shahida Goldman MD, [facility] CPT-4: 44292 11/21/2013 ([id number]) 11863 EST. PATIENT, LEVEL III Diagnosis: DEPRESSIVE DISORDER NEC[ICD9: 311] Diagnosis: Paronychia[ICD9: 681.9] Melba Goldman MD, [facility] CPT-4: 94816 09/24/2013 ([id number]) 47643 EST. PATIENT, LEVEL III Diagnosis: Paronychia[ICD9: 681.9] Diagnosis: Cellulitis[ICD9: 682.9] Melba Goldman MD, [facility] CPT-4: 74550 09/19/2013 ([id number]) 47461 EST. PATIENT, LEVEL III Diagnosis: Conjunctivitis[ICD9: 372.30] Diagnosis: Thrush[ICD9: 112.0] Shahida Goldman MD, [facility] CPT-4: 61803 08/05/2013 ([id number]) 97519 EST. PATIENT, LEVEL III Diagnosis: ACUTE MAXILLARY SINUSITIS[ICD9: 461.0] Diagnosis: COUGH[ICD9: 786.2] Diagnosis: Insomnia[ICD9: 780.52] Diagnosis: ESOPHAGEAL REFLUX[ICD9: 530.81] Melba Goldman MD, [facility] CPT-4: 14721 07/10/2013 ([id number]) Miscellaneous no charge Diagnosis: ESSENTIAL HYPERTENSION[SNOMED: 07923297] Melba Goldman MD [facility] CPT-4: 57111 05/13/2013 ([id number]) 56999 EST. PATIENT, LEVEL IV Diagnosis: ESSENTIAL HYPERTENSION[SNOMED: 93398047] Diagnosis: HYPOTHYROIDISM[ICD9: 244.9] Diagnosis: OSTEOARTH NOS-UNSPEC[ICD9: 715.90] Melba Goldman MD [facility] CPT- 4: 20791 05/07/2013 ([id number]) 88848 EST. PATIENT, LEVEL IV Diagnosis: Osteoarthritis[ICD9: 715.90] Diagnosis: Knee pain, bilateral[ICD9: 719.46] Diagnosis: Hip pain[ICD9: 719.45] Melba Goldman MD [facility] CPT-4: 57131 12/03/2012 ([id number]) 26880 EST. PATIENT, LEVEL III Diagnosis: Thrush[ICD9: 112.0] Melba Goldman MD [facility] CPT-4: 03855 09/24/2012 ([id number]) 67027 EST. PATIENT, LEVEL IV Diagnosis: ESSENTIAL HYPERTENSION[SNOMED: 74405859] Diagnosis: Thrush[ICD9: 112.0] Diagnosis: Sleep apnea[ICD9: 780.57] Melba Goldman MD [facility] CPT-4: 20518 09/10/2012 ([id number]) 08899 EST. PATIENT, LEVEL IV Diagnosis: Esophageal reflux[ICD9: 530.81] Diagnosis: Hypothyroid[ICD9: 244.9] Diagnosis: JOINT PAIN-MULT JOINTS[ICD9: 719.49] Diagnosis: ALLERGIC RHINITIS[ICD9: 477.9] Melba Goldman MD [facility] CPT-4: 84337 08/08/2012 ([id number]) 70428 EST. PATIENT, LEVEL IV Diagnosis: Urinary frequency[ICD9: 788.41] Diagnosis: EDEMA[ICD9: 782.3] Diagnosis: HYPOTHYROIDISM[ICD9: 244.9] Diagnosis: Fatigue[ICD9: 780.79] Melba Goldman MD [facility] CPT-4: 46078 02/15/2012 ([id number]) 14128 EST. PATIENT, LEVEL IV Diagnosis: Abdominal pain[ICD9: 789.00] Diagnosis: Fatigue[ICD9: 780.79] Diagnosis: Nausea[ICD9: 787.02] Melba Goldman MD, [facility] CPT-4: 10292 11/10/2011 95032 EST. PATIENT, LEVEL IV Diagnosis: ESSENTIAL HYPERTENSION[SNOMED: 15914346] Diagnosis: DIARRHEA[ICD9: 787.91] Diagnosis: DEPRESSIVE DISORDER NEC[ICD9: 311] Diagnosis: Irritable bowel disease[ICD9: 564.1] Melba Goldman MD, [facility] CPT- 4: 11448 08/01/2011 04796 EST. PATIENT, LEVEL III Diagnosis: ACUTE SINUSITIS[ICD9: 461.9] Diagnosis: Cough[ICD9: 786.2] Shahida Goldman MD, [facility] CPT-4: 25174 07/14/2011 16677 EST. PATIENT, LEVEL IV Diagnosis: VACCIN FOR INFLUENZA[ICD9: V04.81] Diagnosis: ESSENTIAL HYPERTENSION[SNOMED: 12891154] Diagnosis: GENERALIZED ANXIETY DISEASE[ICD9: 300.02] Diagnosis: SLEEP DISTURBANCES[ICD9: 780.50] Shahida Goldman MD, [facility] CPT- 4: 21649 05/23/2011 43251 EST. PATIENT, LEVEL III Diagnosis: ACUTE SINUSITIS[ICD9: 461.9] Diagnosis: ALLERGIC RHINITIS[ICD9: 477.9] Diagnosis: Cough[ICD9: 786.2] Shahida Goldman MD, [facility] CPT-4: 28019 05/03/2011 24030 EST. PATIENT, LEVEL IV Diagnosis: ESSENTIAL HYPERTENSION[SNOMED: 53778735] Diagnosis: DEPRESSIVE DISORDER NEC[ICD9: 311] Diagnosis: Fatigue[ICD9: 780.79] Shahida Goldman MD, [facility] CPT-4: 21093 04/25/2011 Plan of Care Planned Activity Notes Codes Status Date Visit Plan: Conjunctivitis - rx for eye drops/lube sent electronically to the patient's pharmacy. The patient has been instructed to cleanse affected eye with warm washcloth, then place medication into affected eye four times daily. 10/08/2018 Patient Education: Patient Medication Summary Completed 10/08/2018 Appointment: Isabelle Orozco: [phone] [facility] (15 min) Moderate 07/30/2018 Visit Plan: [...] acute concerns. 07/16/2018 Appointment: Isabelle Orozco WPtel: [facility] (15 min) Moderate 07/16/2018 Patient Education: [...] of over-medication. 07/10/2018 Appointment: Shahida Manzo WPtel: [phone] [phone] [place] (15 min) Moderate 07/10/2018 Patient Education: Patient Medication Summary Completed 07/10/2018 Patient Education: Back Pain Completed 07/10/2018 Visit Plan: Sinusitis - Pt has acute infection - pain in face, maxillary region, Pt informed to use decongestant, RX given to patient, sinus rinses also recommended. Call if symptoms do not show improvement. 05/28/2018 Appointment[phone] (30 min) Complex 05/28/2018 Patient Education: Patient [...] concerns. 02/07/2018 Appointment: [phone] (15 min) Moderate 02/07/2018 Patient Education: Patient [...] less fatigue 01/19/2018 Appointment: Shahida Manzo WPtel: [phone] (15 min) Moderate 01/19/2018 Patient Education: [...] surrogate. 11/23/2017 Appointment: [phone] [facility] - Annual Wellness Visit 11/23/2017 Patient Education: [...] improvement. 09/12/2017 Appointment: [phone] (15 min) Moderate 09/12/2017 Patient Education: Patient [...] spray. 07/25/2017 Appointment: Isabelle Orozco WPtel: [phone] [facility] (30 min) Complex 07/25/2017 Patient Education: [...] available 06/27/2017 Appointment: Shahida Manzo WPtel: [phone] [phone] (15 min) Moderate 06/27/2017 Patient Education: [...] improving. 05/08/2017 Appointment: Shahida Manzo WPtel: [phone] [phone] (15 min) Moderate 05/08/2017 Patient Education: [...] show improvement. 03/14/2017 Appointment: Shahida Manzo WPtel: [phone] (15 min) Moderate 03/14/2017 Patient Education: Patient Medication Summary Completed 03/14/2017 Appointment: Shahida Manzo WPtel: [phone] (15 min) Moderate 02/21/2017 Visit Plan: [...] not improving. 02/20/2017 Appointment: Isabelle Orozco WPtel[facility] (30 min) Complex 02/20/2017 Patient Education: [...] use 02/06/2017 Appointment: Melba Goldman WPtel: [phone] [facility] (15 min) Moderate 02/06/2017 Patient Education: [...] Appointment: Melba Goldman WPtel: [phone] [facility] Surgical Procedure 12/05/2016 Patient Education: Patient Medication Summary Completed 12/05/2016 Visit Plan: Sinusitis - Pt has acute infection - pain in face, maxillary region, Pt informed to use decongestant, RX given to patient, sinus rinses also recommended. Call if symptoms do not show improvement. Dysuria- culture urine 11/28/2016 Appointment: Shahida Manzo WPtel: [phone] [phone] (15 min) Moderate 11/28/2016 Patient Education: [...] of control. 11/07/2016 Appointment: Isabelle Orozco WPtel: [address] [place], [place] [address] [facility] - Annual Wellness Visit 11/07/2016 Patient Education: [...] spray. 08/15/2016 Appointment: Isabelle Orozco WPtel: [phone] [phone] (15 min) Moderate 08/15/2016 Patient Education: [...] use. 06/07/2016 Appointment: Shahida Manzo WPtel: [phone] [phone] (10 min) Simple 06/07/2016 Patient Education: [...] today 03/14/2016 Appointment: [phone] (15 min) Moderate 03/14/2016 Patient Education: Patient Medication Summary Completed 03/14/2016 Care Plan: COMPLETE CBC AUTOMATED LOINC : 52523-8 Pending 03/14/2016 Visit Plan: Cellulitis - The patient was instructed in appropriate wound care. The patient was instructed to use the antibiotic ointment as per RX. The patient is to call for any change in symptoms, increase in size of the lesion, increase in pain. 02/22/2016 Appointment: Isabelle Orozco WPtel: [phone] [phone] (15 min) Moderate 02/22/2016 Patient Education: [...] pt to follow up with specialist at [place] [address] states - she needs to pursue treatment. Anxietly - medications unchanged. colonoscopy with dr. dai 11/24/2015 Appointment: [phone] ([facility] Complex 11/24/2015 Patient Education: Patient Medication Summary Completed 11/24/2015 Patient Education: Obesity Completed 11/24/2015 Patient Education: Hypertension Completed 11/24/2015 Patient Education: .Cervicalgia Neck Pain Completed 11/24/2015 Care Plan: Referral Order SNOMED-CT : [id number] Ordered 11/24/2015 Visit Plan: Acute Migraine - [...] Medication Summary Completed 07/28/2015 Care Plan: Geraldine CHAKA RTS Pending 07/28/2015 Visit Plan: HTN-improved today-no change in medications Tinea- start clotrimazole and diflucan Elevated ALT-check labs today to monitor 06/11/2015 Appointment: [phone] [place] (15 min) Moderate 06/11/2015 Patient Education: [...] OFFICE Sleep apnea-patient needs new CPAP-will contact [facility] patient Pt reports that she uses her [...] OFFICE Sleep apnea-patient needs new CPAP-will contact [facility] patient Pt reports that she uses her [...] OFFICE Sleep apnea-patient needs new CPAP-will contact [facility] patient 03/19/2015 Appointment: (15 min) Moderate [...] Patient Medication Summary Completed 01/07/2015 Patient Education: [facility] - Saving AutoInj - 18+ - Dynamic [...] dry Exposure to scabies-RX sent to [facility]. 03/07/2014 Appointment: [facility] Goldman [facility]el[phone] [facility] [place] rash 03/07/2014 Patient Education: Patient [...] change in blood pressure readings at home. Hgrnhok-ruxbliqtqzp-tlpihjda duragesic patch-appt with Dr Ortiz for pain management 11/21/2013 Appointment: Shahida Manzo WPtel: [phone] Follow up 11/21/2013 Patient Education: Patient Medication Summary Completed 11/21/2013 Patient Education: Hypertension Completed 11/21/2013 Patient Education: .Cervicalgia Neck Pain Completed 11/21/2013 Appointment: Melba Goldman WPtel: [facility] Other 11/19/2013 Appointment: Melba Goldman WPtel: [address] [place], [place] [phone] Follow up 11/06/2013 Appointment: Melba Goldman WPtel: [address] [place], [place] [id number] Lab Draw 10/15/2013 Patient Education: Patient Medication [...] AT BEDTIME 09/24/2013 Appointment: Shahida Manzo WPtel: [facility]3 [address] Other 09/24/2013 Patient Education: Patient Medication Summary Completed 09/24/2013 Visit Plan: Paronychia/Cellulitis - continue with oral antibiotics as previously directed, return to clinic as previously directed, call for acute change in symptoms, worsening redness, warmth, discharge. 09/19/2013 Appointment: Melba Goldman WPtel: [facility] Other 09/19/2013 Patient Education: Patient Medication Summary Completed 09/19/2013 Visit Plan: Conjunctivitis - rx for eye drops/lube sent electronically to the patient's pharmacy. The patient has been instructed to cleanse affected eye with warm washcloth, then place medication into affected eye four times daily. Thrush-refill nystatin-call if symptoms do not resolve 08/05/2013 Appointment: Shahida Manzo WPtel: [facility]7 [phone] Sick 08/05/2013 Patient Education: Patient Medication [...] show improvement. 06/03/2013 Appointment: Melba Goldman WPtel: [facility] Follow [facility] 06/03/2013 Patient Education: Patient Medication Summary Completed 06/03/2013 Patient Education: Hypertension Completed 06/03/2013 App[facility]ment: [facility]el[phone] [facility] 05/13/2013 Patient Education: Patient [...] of control. 05/07/2013 Appointment: Melba Goldman WPtel: [facility]5 [facility] Follow up 05/07/2013 Patient Education: Patient Medication Summary Completed 05/07/2013 Patient Education: Hypertension Completed 05/07/2013 Patient Education: Patient Medication Summary Completed 04/30/2013 Patient Education: Hypertension Completed 04/30/2013 Visit Plan: Arthritis- occasionally uncontrolled symptoms- recommend pt to take antiinflammatory as directed for pain control. Use tylenol for break through pain symptoms. 12/03/2012 Appointment: Melba Goldman WPtel: [address] [place], [place] [phone] Follow up 12/03/2012 Patient Education: Patient Medication [...] not resolve 09/24/2012 Appointment: Shahida Manzo WPtel: [address] [place], [place] [phone] [facility] 09/24/2012 Patient Education: Patient Medication Summary [...] with diflucan 09/10/2012 Appointment: Melba Goldman WPtel: [address] [place], [place] [phone] Follow up 09/10/2012 Patient Education: Patient Medication [...] symptoms. 08/08/2012 Appointment: [phone] Follow up 08/08/2012 Patient Education: Patient Medication Summary Completed 08/08/2012 Patient Education: Patient Medication Summary Completed 08/07/2012 Patient Education: Hypertension Completed 08/07/2012 Appointment: [facility]el[phone] [facility] Lab Draw 02/16/2012 Patient Education: [...] Needs labs. 02/15/2012 Appointment: Melba Goldman WPtel: [facility]5 [facility] Other 02/15/2012 Patient Education: Patient Medication Summary Completed 02/15/2012 Visit Plan: Abdominal pain - ultrasound tomorrow AM nothing to eat before the ultrasound from 11pm tonight bland diet. Nausea - worse with fatty foods, recommended low fat/bland diet, call if symptoms worsening. 11/10/2011 Appointment: Melba Goldman WPtel: [facility]7 [address] Other 11/10/2011 Patient Education: Patient Medication Summary [...] the stools. 08/01/2011 Appointment: Melba Goldman WPtel: [facility]9 [facility] Other 08/01/2011 Patient Education: Patient Medication Summary Completed 08/01/2011 Patient Education: High Blood Pressure: Essential Hypertension Completed 08/01/2011 Visit Plan: Sinusitis - Pt has acute infection - pain in face, maxillary region, Pt informed to use decongestant, RX given to patient, sinus rinses also recommended. Call if symptoms do not show improvement. Cough- kishore zurita 07/14/2011 Appointment: Shahida Manzo WPtel: [facility]9 [address] Other 07/14/2011 Patient Education: Patient Medication [...] the office. 05/23/2011 Appointment: Shahida Manzo WPtel: [facility]1 [address] Other 05/23/2011 Patient Education: Patient Medication [...] cough med 05/03/2011 Appointment: Shahida Manzo WPtel: [address] [place], [place] [phone] [facility] 05/03/2011 Patient Education: Patient Medication Summary [...] symptoms. 04/25/2011 Appointment: [facility]zo [facility]el[phone] Other 04/25/2011 Patient Education: Patient Medication Summary [...] OFFICE Sleep apnea-patient needs new CPAP-will contact [facility] patient Pt reports that she uses her [...] OFFICE Sleep apnea-patient needs new CPAP-will contact [facility] patient Pt reports that she uses [...] Sleep apnea-patient needs new CPAP-will contact [facility] patient . Sinusitis - Pt has acute [...] not show improvement. Gentamicin nasal spray to [facility] [...] dry Exposure to scabies-RX sent to [facility]. rocephin/kenalog . Sinusitis - Pt has [...] change in blood pressure readings at home. Fjhynkg-asvlentrkqh-sbeughlh duragesic patch-appt with Dr Ortiz for pain [...]
--- OUTSIDE RECORDS SUMMARY | 2019-03-08 16:41 | XMS REPORT | CCD ---
Author Author [facility] Address [address] [place] [address] Phone Care Team Providers Care Area Director Of Home Health Sales Name Role Phone PP Unavailable CCM Unavailable Summary Purpose Interface Exchange Insurance Providers Payer name Policy type / Coverage type Covered constitution party ID Effective Begin Date Effective End Date [employer] Medicare Part B [id number] Unknown Family history Son Diagnosis Age At Onset Crohn's disease Unknown Brother Diagnosis Age At Onset Cardiovascular disease Unknown Mother Diagnosis Age At Onset Hypertension Unknown Father Diagnosis Age At Onset Cardiovascular disease Unknown Social History Social History Element Codes Description Effective Dates Marital status Unknown 04/22/2011 Number of children Unknown 3 1 son -Crohns 04/22/[address]: 562672075 Nonsmoker 04/22/2011 Allergies, Adverse Reactions, Alerts Substance [...] 10,000 unit-trimethoprim 1 mg/mL eye drops RxNorm: 503140 2 Drop(s) ophthalmic (eye) QID 10/08/2018 10/14/2018 Active hydrocodone 10 mg-acetaminophen 325 mg tablet RxNorm: 375794 Tablet(s) PO TAKE ONE TO TWO TABLETS BY MOUTH EVERY 6 HOURS NEEDED FOR PAIN 09/11/2018 09/25/2018 Inactive piroxicam 20 mg capsule RxNorm: 503451 TAKE ONE CAPSULE BY MOUTH DAILY 08/09/2018 01/05/2019 Active trazodone 50 mg tablet RxNorm: 489178 TAKE ONE AND ONE-HALF (1 1/2) TABLET BY MOUTH AT BEDTIME. MAY INCREASE TO 2 TABLETS AT BEDTIME NEEDED 08/02/2018 11/19/2018 Active Nexium 40 mg capsule,delayed release RxNorm: 436687 TAKE ONE CAPSULE BY MOUTH TWICE A DAY 07/23/2018 11/19/2018 Active Bystolic 5 mg tablet RxNorm: 994481 1 Tablet(s) PO daily to take with 10 mg daily to equal 15mg daily 07/17/2018 No Stop Date Active alprazolam 0.25 mg tablet RxNorm: 269429 1 Tablet(s) PO TID as needed 07/16/2018 10/13/2018 Active hydrocodone 10 mg-acetaminophen 325 mg tablet RxNorm: 047840 Tablet(s) PO TAKE ONE TO TWO TABLETS BY MOUTH EVERY 6 HOURS NEEDED FOR PAIN 07/10/2018 07/24/2018 Inactive prednisone 20 mg tablet RxNorm: 745006 1 Tablet(s) PO BID 07/10/2018 07/14/2018 Inactive Phenergan with Codeine Syrup RxNorm: 5-10 Milliliter(s) PO Q6 PRN 06/28/2018 No Stop Date Active prednisone 20 mg tablet RxNorm: 152956 2 Tablet(s) PO daily 05/31/2018 06/04/2018 Inactive prednisone 20 mg tablet RxNorm: 224475 2 Tablet(s) PO daily 05/31/2018 05/30/2018 Inactive ceftriaxone 500 mg solution for injection RxNorm: 0405955 Inj 05/28/2018 05/28/2018 Inactive doxycycline hyclate 100 mg tablet RxNorm: 5402258 1 Tablet(s) PO BID 05/28/2018 06/06/2018 Inactive Kenalog 40 mg/mL suspension for injection RxNorm: 9528483 Milliliter(s) Inj 05/28/2018 05/28/2018 Inactive hydrocodone 10 mg-acetaminophen 325 mg tablet RxNorm: 107782 Tablet(s) PO TAKE ONE TO TWO TABLETS BY MOUTH EVERY 6 HOURS NEEDED FOR PAIN 05/09/2018 05/23/2018 Inactive alprazolam 0.25 mg tablet RxNorm: 581991 1 Tablet(s) PO daily as needed 04/25/2018 07/15/2018 Inactive Bystolic 10 mg tablet RxNorm: 130081 TAKE ONE TABLET BY MOUTH DAILY 04/16/2018 09/12/2018 Inactive hydrocodone 10 mg-acetaminophen 325 mg tablet RxNorm: 735625 Tablet(s) PO TAKE ONE TO TWO TABLETS BY MOUTH EVERY 6 HOURS NEEDED FOR PAIN 03/06/2018 03/20/2018 Inactive trazodone 50 mg tablet RxNorm: 309178 TAKE ONE AND ONE-HALF (1 1/2) TABLET BY MOUTH AT BEDTIME. MAY INCREASE TO 2 TABLETS AT BEDTIME NEEDED 02/23/2018 06/12/2018 Inactive mupirocin 2 % topical ointment RxNorm: 581949 1 TOP BID 02/09/2018 05/27/2018 Inactive Zofran 4 mg tablet RxNorm: 167962 1 Tablet(s) PO TID as needed 02/08/2018 No Stop Date Active Keflex 500 mg capsule RxNorm: 016338 1 Capsule(s) PO TID 02/07/2018 02/13/2018 Inactive alprazolam 0.25 mg tablet RxNorm: 287552 1 Tablet(s) PO daily as needed 01/24/2018 07/09/2018 Inactive hydrocodone 10 mg-acetaminophen 325 mg tablet RxNorm: 010567 Tablet(s) PO TAKE ONE TO TWO TABLETS BY MOUTH EVERY 6 HOURS NEEDED FOR PAIN 01/19/2018 02/02/2018 Inactive hydrochlorothiazide 25 mg tablet RxNorm: 466687 Tablet(s) TAKE ONE TABLET BY MOUTH DAILY 01/19/2018 01/19/2018 Inactive Kenalog 40 mg/mL suspension for injection RxNorm: 8714909 1 Milliliter(s) Inj 01/19/2018 01/19/2018 Inactive piroxicam 20 mg capsule RxNorm: 939971 1 Capsule(s) PO daily 01/19/2018 07/17/2018 Inactive D/C ORDER FOR HCTZ ceftriaxone 500 mg solution for injection RxNorm: 6107142 500 Milligram(s) Inj 01/19/2018 01/19/2018 Inactive Nexium 40 mg capsule,delayed release RxNorm: 345438 TAKE ONE CAPSULE BY MOUTH TWICE A DAY 01/18/2018 04/17/2018 Inactive Nexium 40 mg capsule,delayed release RxNorm: 665758 TAKE ONE CAPSULE BY MOUTH TWICE A DAY 01/15/2018 04/14/2018 Inactive ciprofloxacin 0.3 % eye drops RxNorm: 726022 2 Drop(s) ophthalmic (eye) Q2H while awake x 2 days, then Q4H x 5 days 11/23/2017 05/27/2018 Inactive Keflex 500 mg capsule RxNorm: 770391 1 Capsule(s) PO TID 11/23/2017 11/29/2017 Inactive hydrocodone 10 mg-acetaminophen 325 mg tablet RxNorm: 750777 Tablet(s) PO TAKE ONE TO TWO TABLETS BY MOUTH EVERY 6 HOURS NEEDED FOR PAIN 10/30/2017 11/13/2017 Inactive Augmentin 500 mg-125 mg tablet RxNorm: 560869 1 Tablet(s) PO TID 10/27/2017 11/05/2017 Inactive alprazolam 0.25 mg tablet RxNorm: 370926 1 Tablet(s) PO daily as needed 10/26/2017 04/24/2018 Inactive trazodone 50 mg tablet RxNorm: 881228 TAKE ONE AND ONE-HALF (1 1/2) TABLET BY MOUTH AT BEDTIME. MAY INCREASE TO 2 TABLETS AT BEDTIME NEEDED 09/25/2017 02/03/2018 Inactive Lexapro 20 mg tablet RxNorm: 488928 TAKE ONE AND ONE-HALF TABLET BY MOUTH DAILY 09/15/2017 09/09/2018 Inactive Flagyl 500 mg tablet RxNorm: 153697 1 Tablet(s) PO TID 09/12/2017 09/21/2017 Inactive promethazine 25 mg tablet RxNorm: 585487 1 Tablet(s) PO TID as needed nausea and vomitting THIS WILL MAKE YOU SLEEPY 09/12/2017 11/08/2017 Inactive Keflex 500 mg capsule RxNorm: 352323 1 Capsule(s) PO QID 08/25/2017 08/31/2017 Inactive [SAVINGS FOR UNINSURED PATIENTS -- BIN:[id number], PCN: [id number], Group: [id number], ID# [id number], Process claim through [employer], for questions: . THIS IS NOT INSURANCE.] alprazolam 0.25 mg tablet RxNorm: 082442 1 Tablet(s) PO daily as needed 07/31/2017 04/24/2018 Inactive prednisone 20 mg tablet RxNorm: 250654 2 Tablet(s) PO daily 07/25/2017 07/29/2017 Inactive Augmentin 500 mg-125 mg tablet RxNorm: 231818 1 Tablet(s) PO TID 07/25/2017 08/03/2017 Inactive trazodone 50 mg tablet RxNorm: 381461 TAKE ONE AND ONE-HALF (1 1/2) TABLET BY MOUTH AT BEDTIME. MAY INCREASE TO 2 TABLETS AT BEDTIME NEEDED 06/30/2017 09/03/2017 Inactive Bystolic 10 mg tablet RxNorm: 504167 TAKE ONE TABLET BY MOUTH DAILY 06/30/2017 2017 Inactive hydrochlorothiazide 25 mg tablet RxNorm: 966047 TAKE ONE TABLET BY MOUTH DAILY 06/30/2017 01/18/2018 Inactive Flagyl 500 mg tablet RxNorm: 680272 1 Tablet(s) PO TID 06/27/2017 07/03/2017 Inactive Phenergan with Codeine Syrup RxNorm: 5-10 Milliliter(s) PO Q6 PRN 06/27/2017 11/15/2017 Inactive Levaquin 500 mg tablet RxNorm: 502453 1 Tablet(s) PO daily 06/27/2017 07/03/2017 Inactive Kenalog 40 mg/mL suspension for injection RxNorm: 8184531 1 Milliliter(s) Inj 06/27/2017 06/27/2017 Inactive Nexium 40 mg capsule,delayed release RxNorm: 793845 1 Capsule(s) PO BID TAKE ONE CAPSULE BY MOUTH BID 05/22/2017 09/18/2017 Inactive Nexium 40 mg capsule,delayed release RxNorm: 437991 1 Capsule(s) PO BID TAKE ONE CAPSULE BY MOUTH BID 05/22/2017 05/21/2017 Inactive hydrocodone 10 mg-acetaminophen 325 mg tablet RxNorm: 237066 Tablet(s) PO TAKE ONE TO TWO TABLETS BY MOUTH EVERY 6 HOURS NEEDED FOR PAIN 05/17/2017 06/15/2017 Inactive Nexium 40 mg capsule,delayed release RxNorm: 010093 Capsule(s) TAKE ONE CAPSULE BY MOUTH BID 05/17/2017 05/21/2017 Inactive alprazolam 0.25 mg tablet RxNorm: 378285 1 Tablet(s) PO daily as needed 05/03/2017 07/01/2017 Inactive Levaquin 500 mg tablet RxNorm: 896256 1 Tablet(s) PO daily 04/20/2017 04/26/2017 Inactive clotrimazole 1 % topical cream RxNorm: 756761 1 Application TOP BID 04/20/2017 11/07/2017 Inactive Kenalog 40 mg/mL suspension for injection RxNorm: 1018204 Milliliter(s) Inj 04/20/2017 04/20/2017 Inactive nystatin 100,000 unit/gram topical powder RxNorm: 463825 1 Gram(s) APPLY TOPICALLY TWO TIMES A DAY 04/10/2017 07/08/2017 Inactive trazodone 50 mg tablet RxNorm: 121614 TAKE ONE AND ONE-HALF (1 1/2) TABLET BY MOUTH AT BEDTIME. MAY INCREASE TO 2 TABLETS AT BEDTIME NEEDED 03/28/2017 06/23/2017 Inactive Augmentin 875 mg-125 mg tablet RxNorm: 911917 1 Tablet(s) PO BID 03/14/2017 03/20/2017 Inactive Kenalog 40 mg/mL suspension for injection RxNorm: 4277583 1 Milliliter(s) Inj 03/14/2017 03/14/2017 Inactive Lexapro 20 mg tablet RxNorm: 908712 1.5 Tablet(s) PO daily 03/08/2017 03/07/2017 Inactive Lexapro 20 mg tablet RxNorm: 911811 1.5 Tablet(s) PO daily 03/08/2017 07/05/2017 Inactive alprazolam 0.25 mg tablet RxNorm: 509945 1 Tablet(s) PO daily as needed 02/23/2017 04/23/2017 Inactive (Response to an electronic controlled substance refill request - RxReferenceNumber: [id number]) Flagyl 500 mg tablet RxNorm: 222127 1 Tablet(s) PO TID 02/20/2017 03/01/2017 Inactive promethazine 25 mg tablet RxNorm: 357243 1 Tablet(s) PO TID as needed nausea 02/20/2017 03/01/2017 Inactive Cipro 500 mg tablet RxNorm: 459479 1 Tablet(s) PO BID 02/20/2017 03/01/2017 Inactive Flagyl 500 mg tablet RxNorm: 793910 1 Tablet(s) PO TID 02/09/2017 02/15/2017 Inactive Trintellix 10 mg tablet RxNorm: 7091808 1 Tablet(s) PO QAM 02/06/2017 03/07/2017 Inactive Efudex 5 % topical cream RxNorm: 265229 1 Application TOP BID use on skin spot on nose 02/06/2017 02/15/2017 Inactive Bystolic 10 mg tablet RxNorm: 909678 TAKE ONE TABLET BY MOUTH DAILY 02/03/2017 06/02/2017 Inactive Imitrex 50 mg tablet RxNorm: 896111 TAKE ONE TABLET BY MOUTH EVERY 8 HOURS NEEDED MAY REPEAT IN 1 HOUR OF INITIAL DOSE. DISCONTINUE FIORICET 12/22/2016 02/19/2017 Inactive Nexium 40 mg capsule,delayed release RxNorm: 877160 TAKE ONE CAPSULE BY MOUTH EVERY DAY 12/21/2016 05/16/2017 Inactive Lexapro 20 mg tablet RxNorm: 982542 Tablet(s) TAKE ONE TABLET BY MOUTH DAILY 12/05/2016 02/05/2017 Inactive Augmentin 875 mg-125 mg tablet RxNorm: 494935 1 Tablet(s) PO BID 11/28/2016 12/04/2016 Inactive ceftriaxone 500 mg solution for injection RxNorm: 1238853 1 Milliliter(s) Inj 11/28/2016 11/28/2016 Inactive hydrocodone 10 mg-acetaminophen 325 mg tablet RxNorm: 317506 Tablet(s) PO TAKE ONE TO TWO TABLETS BY MOUTH EVERY 6 HOURS NEEDED FOR PAIN 11/28/2016 05/16/2017 Inactive (Appended: Controlled substance eRx refill - RxReferenceNumber: [id number]) prednisone 20 mg tablet RxNorm: 706399 2 Tablet(s) PO daily 11/28/2016 12/02/2016 Inactive Synthroid 100 mcg tablet RxNorm: 402848 1 Tablet(s) PO daily 11/21/2016 05/19/2017 Inactive Brand name only! trazodone 50 mg tablet RxNorm: 041454 Tablet(s) TAKE 1 AND 1/2 TABLETS EVERY NIGHT AT BEDTIME , MAY INCREASE TO 2 TABLETS AT BEDTIME NEEDED 11/21/2016 11/20/2016 Inactive trazodone 50 mg tablet RxNorm: 210636 TAKE 1 AND 1/2 TABLETS EVERY NIGHT AT BEDTIME , MAY INCREASE TO 2 TABLETS AT BEDTIME NEEDED 11/21/2016 08/01/2018 Inactive Synthroid 100 mcg tablet RxNorm: 784751 1 Tablet(s) PO daily TAKE ONE TABLET BY MOUTH DAILY 11/08/2016 11/20/2016 Inactive ceftriaxone 500 mg solution for injection RxNorm: 3238595 Inj 11/07/2016 11/07/2016 Inactive Kenalog 40 mg/mL suspension for injection RxNorm: 5219907 Milliliter(s) Inj 11/07/2016 11/07/2016 Inactive Xanax 0.25 mg tablet RxNorm: 248181 1 Tablet(s) PO daily as needed 10/31/2016 05/02/2017 Inactive alprazolam 0.25 mg tablet RxNorm: 687913 1 Tablet(s) PO daily as needed 10/21/2016 12/18/2016 Inactive (Response to an electronic controlled substance refill request - RxReferenceNumber: [id number]) hydrochlorothiazide 25 mg tablet RxNorm: 557940 TAKE ONE TABLET BY MOUTH DAILY 10/11/2016 04/08/2017 Inactive Xanax 0.25 mg tablet RxNorm: 526966 1 Tablet(s) PO daily as needed 08/23/2016 10/19/2016 Inactive Flonase Allergy Relief 50 mcg/actuation nasal spray,suspension RxNorm: 6841550 1 Anton NASAL daily 08/15/2016 No Stop Date Active amoxicillin 500 mg capsule RxNorm: 123104 1 Capsule(s) PO TID 08/15/2016 08/24/2016 Inactive Bystolic 10 mg tablet RxNorm: 170616 TAKE ONE TABLET BY MOUTH DAILY 08/01/2016 12/28/2016 Inactive trazodone 50 mg tablet RxNorm: 055013 TAKE 1 AND 1/2 TABLETS EVERY NIGHT AT BEDTIME , MAY INCREASE TO 2 TABLETS AT BEDTIME NEEDED 07/25/2016 11/11/2016 Inactive alprazolam 0.25 mg tablet RxNorm: 869638 1 Tablet(s) PO daily as needed 07/25/2016 08/22/2016 Inactive (Response to an electronic controlled substance refill request - RxReferenceNumber: [id number]) Imitrex 50 mg tablet RxNorm: 005084 1 Tablet(s) PO Q8 as needed may repeat x1 dose in 1 hour of inital dose. 07/13/2016 No Stop Date Active Lexapro 20 mg tablet RxNorm: 576283 TAKE 1/2 TABLET BY MOUTH DAILY FOR 10 DAYS, THEN TAKE ONE TABLET BY MOUTH DAILY 06/27/2016 11/23/2016 Inactive Synthroid 100 mcg tablet RxNorm: 840407 TAKE ONE TABLET BY MOUTH DAILY 06/20/2016 11/07/2016 Inactive Augmentin 500 mg-125 mg tablet RxNorm: 950184 1 Tablet(s) PO TID 06/07/2016 06/13/2016 Inactive hydrocodone 10 mg-acetaminophen 325 mg tablet RxNorm: 120102 Tablet(s) PO TAKE ONE TO TWO TABLETS BY MOUTH EVERY 6 HOURS NEEDED FOR PAIN 06/07/2016 11/27/2016 Inactive (Appended: Controlled substance eRx refill - RxReferenceNumber: [id number]) hydrochlorothiazide 25 mg tablet RxNorm: 498227 TAKE ONE TABLET BY MOUTH DAILY 03/14/2016 09/09/2016 Inactive Edarbi 40 mg tablet RxNorm: 3382973 1 Tablet(s) PO daily 03/14/2016 06/06/2016 Inactive trazodone 50 mg tablet RxNorm: 032318 Tablet(s) TAKE 1 AND 1/2 TABLET AT BEDTIME. MAY INCREASE TO 2 TABLETS IF NECESSARY 02/25/2016 07/05/2016 Inactive Imitrex 50 mg tablet RxNorm: 272263 1 Tablet(s) PO Q8 as needed may repeat x1 dose in 1 hour of inital dose. 02/25/2016 07/12/2016 Inactive dc fioricet Xanax 0.25 mg tablet RxNorm: 601133 1 Tablet(s) PO daily as needed 02/24/2016 07/21/2016 Inactive mupirocin 2 % topical ointment RxNorm: 275286 1 TOP BID 02/22/2016 11/08/2017 Inactive Bactrim DS 800 mg-160 mg tablet RxNorm: 783420 1 Tablet(s) PO BID 02/22/2016 03/02/2016 Inactive Fioricet 50 mg-325 mg-40 mg tablet RxNorm: 574453 Tablet(s) TAKE ONE TABLET BY MOUTH EVERY 4 HOURS NEEDED FOR headache 02/12/2016 02/24/2016 Inactive (Response to an electronic controlled substance refill request - RxReferenceNumber: [id number]) Fioricet 50 mg-325 mg-40 mg tablet RxNorm: 098350 Tablet(s) TAKE ONE TABLET BY MOUTH EVERY 4 HOURS NEEDED FOR headache 02/12/2016 02/11/2016 Inactive (Response to an electronic controlled substance refill request - RxReferenceNumber: [id number]) Nexium 40 mg capsule,delayed release RxNorm: 108280 TAKE ONE CAPSULE BY MOUTH EVERY DAY 02/01/2016 10/27/2016 Inactive Bystolic 10 mg tablet RxNorm: 017231 Tablet(s) TAKE ONE TABLET BY MOUTH DAILY 01/06/2016 07/03/2016 Inactive Xanax 0.25 mg tablet RxNorm: 090398 1 Tablet(s) PO daily as needed 12/28/2015 02/23/2016 Inactive Levaquin 500 mg tablet RxNorm: 834675 1 Tablet(s) PO daily take a probiotic daily 12/14/2015 02/11/2016 Inactive Levaquin 500 mg tablet RxNorm: 135787 1 Tablet(s) PO daily take a probiotic daily 12/14/2015 12/13/2015 Inactive prednisone 20 mg tablet RxNorm: 175672 1 Tablet(s) PO BID 12/07/2015 12/13/2015 Inactive Augmentin 875 mg-125 mg tablet RxNorm: 559703 1 Tablet(s) PO BID 12/07/2015 12/13/2015 Inactive ceftriaxone 500 mg solution for injection RxNorm: 8081281 Inj 12/07/2015 12/07/2015 Inactive Phenergan with Codeine Syrup RxNorm: 5-10 Milliliter(s) PO Q6 PRN 12/07/2015 06/26/2017 Inactive alprazolam 0.25 mg tablet RxNorm: 966487 1 Tablet(s) PO daily as needed 11/27/2015 12/25/2015 Inactive (Response to an electronic controlled substance refill request - RxReferenceNumber: [id number]) trazodone 50 mg tablet RxNorm: 679595 TAKE 1 AND 1/2 TABLET AT BEDTIME FOR 2 WEEKS, MAY INCREASE TO 2 TABLETS IF NECESSARY AFTER THAT 11/26/2015 02/24/2016 Inactive ceftriaxone 500 mg solution for injection RxNorm: 4292178 Milliliter(s) Inj 11/24/2015 11/24/2015 Inactive prednisone 10 mg tablet RxNorm: 141213 3 Tablet(s) PO daily 11/24/2015 11/28/2015 Inactive cefdinir 300 mg capsule RxNorm: 778149 1 Capsule(s) PO BID 11/24/2015 11/30/2015 Inactive Kenalog 40 mg/mL suspension for injection RxNorm: 0020401 1 Milliliter(s) Inj 11/24/2015 11/24/2015 Inactive Lexapro 20 mg tablet RxNorm: 285212 TAKE 1/2 TABLET BY MOUTH DAILY FOR 10 DAYS, THEN TAKE ONE TABLET BY MOUTH DAILY 11/23/2015 05/20/2016 Inactive Lipitor 10 mg tablet RxNorm: 632512 Tablet(s) TAKE ONE TABLET BY MOUTH EVERY DAY 10/26/2015 11/06/2016 Inactive Norvasc 10 mg tablet RxNorm: 679056 Tablet(s) PO TAKE ONE TABLET BY MOUTH EVERY DAY 10/26/2015 01/18/2018 Inactive hydrochlorothiazide 25 mg tablet RxNorm: 784773 TAKE ONE TABLET BY MOUTH DAILY 10/20/2015 01/17/2016 Inactive promethazine 25 mg/mL injection solution RxNorm: 575406 Milliliter(s) Inj 08/27/2015 08/27/2015 Inactive ketorolac 60 mg/2 mL intramuscular solution RxNorm: 419903 Milliliter(s) IM 08/27/2015 08/27/2015 Inactive alprazolam 0.25 mg tablet RxNorm: 621152 1 Tablet(s) PO daily as needed 08/27/2015 10/25/2017 Inactive (Response to an electronic controlled substance refill request - RxReferenceNumber: [id number]) Lexapro 20 mg tablet RxNorm: 943232 TAKE 1/2 TABLET BY MOUTH DAILY FOR 10 DAYS, THEN TAKE ONE TABLET BY MOUTH DAILY 08/13/2015 11/10/2015 Inactive Flonase 50 mcg/actuation nasal spray,suspension RxNorm: 990207 PLACE 1 SPRAY IN EACH NOSTRIL DAILY 08/13/2015 02/08/2016 Inactive Augmentin 500 mg-125 mg tablet RxNorm: 233193 1 Tablet(s) PO TID 08/10/2015 08/16/2015 Inactive Kenalog 40 mg/mL suspension for injection RxNorm: 7683832 Milliliter(s) Inj 08/10/2015 08/10/2015 Inactive ceftriaxone 500 mg solution for injection RxNorm: 4814915 Inj 08/10/2015 08/10/2015 Inactive nystatin 100,000 unit/mL oral suspension RxNorm: 725600 4 Milliliter(s) PO QID 08/10/2015 08/16/2015 Inactive trazodone 50 mg tablet RxNorm: 952143 TAKE 1 AND 1/2 TABLET AT BEDTIME FOR 2 WEEKS, MAY INCREASE TO 2 TABLETS IF NECESSARY AFTER THAT 07/31/2015 11/25/2015 Inactive ceftriaxone 500 mg solution for injection RxNorm: 7850728 1 Milliliter(s) Inj 07/28/2015 07/28/2015 Inactive Bactrim DS 800 mg-160 mg tablet RxNorm: 466133 1 Tablet(s) PO BID 07/28/2015 08/06/2015 Inactive Bactroban 2 % topical ointment RxNorm: 732438 1 Application TOP BID 07/28/2015 08/06/2015 Inactive Diflucan 150 mg tablet RxNorm: 476724 1 Tablet(s) PO daily 06/11/2015 06/17/2015 Inactive clotrimazole 1 % topical cream RxNorm: 298723 1 Application TOP BID 06/11/2015 07/10/2015 Inactive Bystolic 10 mg tablet RxNorm: 745670 TAKE ONE TABLET BY MOUTH DAILY 06/08/2015 12/04/2015 Inactive alprazolam 0.25 mg tablet RxNorm: 747357 1 Tablet(s) PO daily as needed 06/01/2015 08/25/2015 Inactive (Response to an electronic controlled substance refill request - RxReferenceNumber: [id number]) Fioricet 50 mg-325 mg-40 mg tablet RxNorm: 665538 Tablet(s) TAKE ONE TABLET BY MOUTH EVERY 4 HOURS NEEDED FOR headache 05/28/2015 06/08/2015 Inactive (Response to an electronic controlled substance refill request - RxReferenceNumber: [id number]) trazodone 50 mg tablet RxNorm: 968104 TAKE 1 AND 1/2 TABLET AT BEDTIME FOR 2 WEEKS, MAY INCREASE TO 2 TABLETS IF NECESSARY AFTER THAT 05/25/2015 08/22/2015 Inactive trazodone 50 mg tablet RxNorm: 493284 TAKE 1 AND 1/2 TABLET AT BEDTIME FOR 2 WEEKS, MAY INCREASE TO 2 TABLETS IF NECESSARY AFTER THAT 05/25/2015 05/24/2015 Inactive Synthroid 100 mcg tablet RxNorm: 132436 TAKE ONE TABLET BY MOUTH DAILY 04/23/2015 01/17/2016 Inactive Lipitor 10 mg tablet RxNorm: 883847 TAKE ONE TABLET BY MOUTH EVERY DAY 04/23/2015 10/25/2015 Inactive Kenalog 40 mg/mL suspension for injection RxNorm: 0938917 Milliliter(s) Inj 03/19/2015 03/19/2015 Inactive Lexapro 20 mg tablet RxNorm: 384689 1 Tablet(s) PO daily 03/19/2015 07/16/2015 Inactive 1/2 tab daily x 10 days then 1 tab daily hydrocodone 10 mg-acetaminophen 325 mg tablet RxNorm: 750450 Tablet(s) PO TAKE ONE TO TWO TABLETS BY MOUTH EVERY 6 HOURS NEEDED FOR PAIN 03/19/2015 06/06/2016 Inactive (Appended: Controlled substance eRx refill - RxReferenceNumber: [id number]) Carafate 1 gram tablet RxNorm: 032751 1 Tablet(s) PO AC & HS 03/19/2015 06/16/2015 Inactive dissolve in water and take as a slurry hydrochlorothiazide 25 mg tablet RxNorm: 952211 1 Tablet(s) PO daily 03/12/2015 09/07/2015 Inactive Nexium 40 mg capsule,delayed release RxNorm: 449587 TAKE ONE CAPSULE BY MOUTH EVERY DAY 02/26/2015 12/22/2015 Inactive Cymbalta 60 mg capsule,delayed release RxNorm: 467737 TAKE ONE CAPSULE BY MOUTH TWICE A DAY 02/23/2015 03/18/2015 Inactive alprazolam 0.25 mg tablet RxNorm: 321469 1 Tablet(s) PO daily as needed 02/11/2015 05/10/2015 Inactive (Response to an electronic controlled substance refill request - RxReferenceNumber: [id number]) trazodone 50 mg tablet RxNorm: 909164 TAKE 1 AND 1/2 TABLET AT BEDTIME FOR 2 WEEKS, MAY INCREASE TO 2 TABLETS IF NECESSARY AFTER THAT 01/27/2015 05/24/2015 Inactive Augmentin 500 mg-125 mg tablet RxNorm: 861140 1 Tablet(s) PO TID 01/07/2015 01/13/2015 Inactive gentamicin 0.3 % eye drops RxNorm: 462770 3 Drop(s) OPH QID 01/07/2015 01/13/2015 Inactive [AttnRPh: Saving apply/adjudicate RxGRP:[id number] RxBIN:[id number] RxPCN: ID#:[id number]] scopolamine 1.5 mg transdermal 72 hour patch RxNorm: 285460 1 Patch TD q72 hours 01/07/2015 11/23/2015 Inactive Synthroid 100 mcg tablet RxNorm: 827862 TAKE ONE TABLET BY MOUTH ONCE A DAY 01/06/2015 04/22/2015 Inactive nystatin 100,000 unit/gram topical powder RxNorm: 428530 APPLY TOPICALLY TWO TIMES A DAY 12/18/2014 03/17/2015 Inactive alprazolam 0.25 mg tablet RxNorm: 808973 TAKE ONE TABLET BY MOUTH DAILY NEEDED 10/30/2014 11/28/2014 Inactive (Response to an electronic controlled substance refill request - RxReferenceNumber: [id number]) alprazolam 0.25 mg tablet RxNorm: 578748 Tablet(s) TAKE ONE TABLET BY MOUTH DAILY 10/30/2014 10/29/2014 Inactive (Response to an electronic controlled substance refill request - RxReferenceNumber: [id number]) Lipitor 10 mg tablet RxNorm: 938484 TAKE ONE TABLET BY MOUTH EVERY DAY 10/30/2014 02/26/2015 Inactive alprazolam 0.25 mg tablet RxNorm: 652036 TAKE ONE TABLET BY MOUTH DAILY 10/07/2014 10/29/2014 Inactive (Response to an electronic controlled substance refill request - RxReferenceNumber: [id number]) alprazolam 0.25 mg tablet RxNorm: 673688 TAKE ONE TABLET BY MOUTH DAILY 10/06/2014 10/07/2014 Inactive (Response to an electronic controlled substance refill request - RxReferenceNumber: [id number]) alprazolam 0.25 mg tablet RxNorm: 145825 Tablet(s) TAKE ONE TABLET BY MOUTH EVERY DAY NEEDED 09/30/2014 10/06/2014 Inactive (Response to an electronic controlled substance refill request - RxReferenceNumber: [id number]) Fioricet 50 mg-325 mg-40 mg tablet RxNorm: 981379 Tablet(s) TAKE ONE TABLET BY MOUTH EVERY 4 HOURS NEEDED FOR headache 09/29/2014 10/12/2014 Inactive (Response to an electronic controlled substance refill request - RxReferenceNumber: [id number]) Bystolic 10 mg tablet RxNorm: 968850 1 Tablet(s) PO daily TAKE ONE TABLET BY MOUTH EVERY DAY 09/29/2014 04/26/2015 Inactive Bystolic 5 mg tablet RxNorm: 521665 TAKE 1 AND 1/2 TABLETS ONCE DAILY 09/24/2014 09/23/2014 Inactive Bystolic 5 mg tablet RxNorm: 531056 Tablet(s) TAKE 1 AND 1/2 TABLETS ONCE DAILY 09/24/2014 09/18/2015 Inactive gentamicin 0.3 % eye drops RxNorm: 292504 3 Drop(s) OPH QID 09/23/2014 09/29/2014 Inactive trazodone 50 mg tablet RxNorm: 256555 TAKE 1 AND 1/2 TABLET AT BEDTIME FOR 2 WEEKS, MAY INCREASE TO 2 TABLETS IF NECESSARY AFTER THAT 09/22/2014 01/26/2015 Inactive Fioricet 50 mg-325 mg-40 mg tablet RxNorm: 219557 TAKE ONE TABLET BY MOUTH EVERY 4 HOURS NEEDED FOR PAIN 09/17/2014 09/28/2014 Inactive (Response to an electronic controlled substance refill request - RxReferenceNumber: [id number]) Duragesic 50 mcg/hr transdermal patch RxNorm: 971928 1 TD q72 hours 08/07/2014 01/06/2015 Inactive [SAVINGS FOR UNINSURED PATIENTS -- BIN:[id number], PCN: [id number], Group: [id number], ID# [id number], Process claim through [employer], for questions: . THIS IS NOT INSURANCE.] alprazolam 0.25 mg tablet RxNorm: 221833 TAKE ONE TABLET BY MOUTH EVERY DAY NEEDED 07/31/2014 08/29/2014 Inactive (Response to an electronic controlled substance refill request - RxReferenceNumber: [id number]) alprazolam 0.25 mg tablet RxNorm: 073665 1 Tablet(s) PO daily as needed TAKE ONE TABLET BY MOUTH EVERY DAY NEEDED 07/30/2014 08/01/2014 Inactive (Response to an electronic controlled substance refill request - RxReferenceNumber: [id number]) Diflucan 150 mg tablet RxNorm: 935482 1 Tablet(s) PO daily 06/25/2014 07/01/2014 Inactive [SAVINGS FOR UNINSURED PATIENTS -- BIN:[id number], PCN: ASPROD1, Group: [id number], ID# [id number], Process claim through MedImp[employer], for questions: . THIS IS NOT INSURANCE.] Kenalog 40 mg/mL suspension for injection RxNorm: 1046441 Milliliter(s) Inj 06/23/2014 06/23/2014 Inactive [SAVINGS FOR UNINSURED PATIENTS -- BIN:561591, PCN: ASPROD1, Group: [id number], ID# [id number], Process claim through MedImp[employer], for questions: . THIS IS NOT INSURANCE.] ceftriaxone 500 mg solution for injection RxNorm: 368456 Inj 06/23/2014 06/23/2014 Inactive [SAVINGS FOR UNINSURED PATIENTS -- BIN:146342, PCN: ASPROD1, Group: [id number], ID# [id number], Process claim through [employer]Imp[employer], for questions: . THIS IS NOT INSURANCE.] Levaquin 500 mg tablet RxNorm: 466451 1 Tablet(s) PO daily 06/23/2014 07/13/2014 Inactive [SAVINGS FOR UNINSURED PATIENTS -- BIN:684219, PCN: ASPROD1, Group: [id number], ID# [id number], Process claim through MedImp[employer], for questions: . THIS IS NOT INSURANCE.] Duragesic 50 mcg/hr transdermal patch RxNorm: 698753 1 TD q72 hours 06/05/2014 08/06/2014 Inactive [SAVINGS FOR UNINSURED PATIENTS -- BIN:703317, PCN: ASPROD1, Group: [id number], ID# [id number], Process claim through [employer], for questions: . THIS IS NOT INSURANCE.] alprazolam 0.25 mg tablet RxNorm: 057564 1 Tablet(s) PO daily as needed TAKE ONE TABLET BY MOUTH EVERY DAY NEEDED 06/02/2014 07/29/2014 Inactive (Response to an electronic controlled substance refill request - RxReferenceNumber: [id number]) nystatin 100,000 unit/gram topical powder RxNorm: 593134 APPLY TO AFFECTED AREA(S) TWO TIMES A DAY 05/01/2014 06/14/2014 Inactive hydrochlorothiazide 25 mg tablet RxNorm: 844249 TAKE ONE TABLET BY MOUTH EVERY DAY MUST CALL MD FOR APPOINTMENT 04/24/2014 10/20/2014 Inactive alprazolam 0.25 mg tablet RxNorm: 286287 Tablet(s) TAKE ONE TABLET BY MOUTH EVERY DAY NEEDED 04/16/2014 06/02/2014 Inactive (Response to an electronic controlled substance refill request - RxReferenceNumber: [id number]) alprazolam 0.25 mg tablet RxNorm: 598026 TAKE ONE TABLET BY MOUTH EVERY DAY NEEDED 04/16/2014 05/15/2014 Inactive (Response to an electronic controlled substance refill request - RxReferenceNumber: [id number]) alprazolam 0.25 mg tablet RxNorm: 988237 TAKE ONE TABLET BY MOUTH EVERY DAY NEEDED 04/16/2014 05/15/2014 Inactive (Response to an electronic controlled substance refill request - RxReferenceNumber: [id number]) alprazolam 0.25 mg tablet RxNorm: 391660 TAKE ONE TABLET BY MOUTH EVERY DAY NEEDED 04/14/2014 04/16/2014 Inactive (Response to an electronic controlled substance refill request - RxReferenceNumber: [id number]) Lipitor 10 mg tablet RxNorm: 089395 TAKE ONE TABLET BY MOUTH EVERY DAY 04/14/2014 09/10/2014 Inactive alprazolam 0.25 mg tablet RxNorm: 832963 TAKE ONE TABLET BY MOUTH EVERY DAY NEEDED 04/14/2014 04/14/2014 Inactive (Response to an electronic controlled substance refill request - RxReferenceNumber: [id number]) alprazolam 0.25 mg tablet RxNorm: 094804 TAKE ONE TABLET BY MOUTH EVERY DAY NEEDED 04/14/2014 04/15/2014 Inactive (Response to an electronic controlled substance refill request - RxReferenceNumber: [id number]) alprazolam 0.25 mg tablet RxNorm: 756363 TAKE ONE TABLET BY MOUTH EVERY DAY NEEDED 04/14/2014 04/14/2014 Inactive (Response to an electronic controlled substance refill request - RxReferenceNumber: [id number]) nystatin 100,000 unit/gram topical powder RxNorm: 569225 1 Application TOP BID 04/03/2014 07/01/2014 Inactive [SAVINGS FOR UNINSURED PATIENTS -- BIN:[id number], PCN: ASPROD1, Group: [id number], ID# [id number], Process claim through Data[employer], for questions: . THIS IS NOT INSURANCE.] Keflex 500 mg capsule RxNorm: 111363 1 Capsule(s) PO QID 04/03/2014 04/09/2014 Inactive [SAVINGS FOR UNINSURED PATIENTS -- BIN:865448, PCN: ASPROD1, Group: [id number], ID# [id number], Process claim through MedImpact, for questions: . THIS IS NOT INSURANCE.] Synthroid 100 mcg tablet RxNorm: 235387 1 Tablet(s) PO daily TAKE ONE TABLET BY MOUTH EVERY DAY 04/01/2014 01/05/2015 Inactive [SAVINGS FOR UNINSURED PATIENTS -- BIN:046683, PCN: ASPROD1, Group: [id number], ID# [id number], Process claim through MedImpact, for questions: . THIS IS NOT INSURANCE.] Duragesic 50 mcg/hr transdermal patch RxNorm: 070571 1 TD q72 hours 03/24/2014 06/04/2014 Inactive [SAVINGS FOR UNINSURED PATIENTS -- BIN:461717, PCN: ASPROD1, Group: [id number], ID# [id number], Process claim through MedImpact, for questions: . THIS IS NOT INSURANCE.] trazodone 50 mg tablet RxNorm: 880497 TAKE 1 AND 1/2 TABLET AT BEDTIME FOR 2 WEEKS, MAY INCREASE TO 2 TABLETS IF NECESSARY AFTER THAT 03/18/2014 09/13/2014 Inactive nystatin 100,000 unit/gram topical powder RxNorm: 459191 1 Application TOP BID 03/07/2014 03/16/2014 Inactive [SAVINGS FOR UNINSURED PATIENTS -- BIN:189744, PCN: ASPROD1, Group: [id number], ID# [id number], Process claim through MedImp[employer], for questions: . THIS IS NOT INSURANCE.] permethrin 5 % topical cream RxNorm: 921851 1 Application TOP daily 03/07/2014 11/23/2015 Inactive apply head to toe-leave on overnight and wash off in the a.m. May repeat x 1 if needed Diflucan 150 mg tablet RxNorm: 406405 1 Tablet(s) PO daily 03/07/2014 03/09/2014 Inactive [SAVINGS FOR UNINSURED PATIENTS -- BIN:413547, PCN: ASPROD1, Group: [id number], ID# [id number], Process claim through MedImpact, for questions: . THIS IS NOT INSURANCE.] hydrochlorothiazide 25 mg tablet RxNorm: 719089 TAKE ONE TABLET BY MOUTH EVERY DAY MUST CALL FOR APPOINTMENT 03/06/2014 04/23/2014 Inactive Zithromax Z-Sergio 250 mg tablet RxNorm: 439156 Tablet(s) PO as directed 03/04/2014 11/23/2015 Inactive [SAVINGS FOR UNINSURED PATIENTS -- BIN:196245, PCN: ASPROD1, Group: [id number], ID# [id number], Process claim through MedImpact, for questions: . THIS IS NOT INSURANCE.] Flonase 50 mcg/actuation nasal spray,suspension RxNorm: 418311 1 Anton NASAL daily 03/04/2014 07/01/2014 Inactive [SAVINGS FOR UNINSURED PATIENTS -- BIN:279889, PCN: ASPROD1, Group: [id number], ID# [id number], Process claim through MedImpact, for questions: . THIS IS NOT INSURANCE.] alprazolam 0.25 mg tablet RxNorm: 082145 1 Tablet(s) PO PRN TAKE ONE TABLET BY MOUTH EVERY DAY NEEDED 02/25/2014 04/14/2014 Inactive (Appended: Controlled substance eRx refill - RxReferenceNumber: [id number]) alprazolam 0.25 mg tablet RxNorm: 048888 TAKE ONE TABLET BY MOUTH EVERY DAY NEEDED 02/21/2014 03/22/2014 Inactive (Response to an electronic controlled substance refill request - RxReferenceNumber: [id number]) alprazolam 0.25 mg tablet RxNorm: 805214 TAKE ONE TABLET BY MOUTH EVERY DAY NEEDED 02/21/2014 03/22/2014 Inactive (Response to an electronic controlled substance refill request - RxReferenceNumber: [id number]) alprazolam 0.25 mg tablet RxNorm: 253084 TAKE ONE TABLET BY MOUTH EVERY DAY NEEDED 02/18/2014 03/19/2014 Inactive (Response to an electronic controlled substance refill request - RxReferenceNumber: [id number]) Cymbalta 60 mg capsule,delayed release RxNorm: 741479 TAKE ONE CAPSULE BY MOUTH TWICE A DAY 02/18/2014 01/13/2015 Inactive Nexium 40 mg capsule,delayed release RxNorm: 797963 TAKE ONE CAPSULE BY MOUTH EVERY DAY 02/18/2014 01/13/2015 Inactive Bactrim DS 800 mg-160 mg tablet RxNorm: 045738 1 Tablet(s) PO BID 02/13/2014 02/19/2014 Inactive probiotic while one antibiotic Bactrim DS 800 mg-160 mg tablet RxNorm: 826580 1 Tablet(s) PO BID 02/13/2014 02/12/2014 Inactive hydrocodone 10 mg-acetaminophen 325 mg tablet RxNorm: 465872 Tablet(s) PO TAKE ONE TO TWO TABLETS BY MOUTH EVERY 6 HOURS NEEDED FOR PAIN 02/06/2014 03/18/2015 Inactive (Appended: Controlled substance eRx refill - RxReferenceNumber: [id number]) Abilify 2 mg tablet RxNorm: 639796 Tablet(s) PO TAKE ONE TABLET BY MOUTH EVERY NIGHT AT BEDTIME 02/03/2014 03/19/2015 Inactive Duragesic 50 mcg/hr transdermal patch RxNorm: 997813 1 TD q72 hours 01/14/2014 03/23/2014 Inactive alprazolam 0.25 mg tablet RxNorm: 471455 1 Tablet(s) PO QDAY PRN 01/14/2014 02/12/2014 Inactive alprazolam 0.25 mg tablet RxNorm: 465226 Tablet(s) PO TAKE ONE TABLET BY MOUTH EVERY DAY NEEDED 01/14/2014 02/24/2014 Inactive (Appended: Controlled substance eRx refill - RxReferenceNumber: [id number]) Lipitor 10 mg tablet RxNorm: 894716 Tablet(s) PO TAKE ONE TABLET BY MOUTH EVERY DAY 01/14/2014 04/13/2014 Inactive Synthroid 100 mcg tablet RxNorm: 049888 Tablet(s) PO TAKE ONE TABLET BY MOUTH EVERY DAY 2013 03/31/2014 Inactive Fioricet 50 mg-325 mg-40 mg tablet RxNorm: 184095 Tablet(s) PO TAKE ONE TABLET BY MOUTH EVERY 4 HOURS NEEDED FOR PAIN 11/27/2013 09/17/2014 Inactive Fioricet 50 mg-325 mg-40 mg tablet RxNorm: 997648 Tablet(s) PO TAKE ONE TABLET BY MOUTH EVERY 4 HOURS NEEDED FOR PAIN 11/25/2013 11/26/2013 Inactive Zithromax Z-Sergio 250 mg tablet RxNorm: 685252 Tablet(s) PO as directed 11/11/2013 01/13/2014 Inactive Bystolic 10 mg tablet RxNorm: 936029 Tablet(s) PO TAKE ONE TABLET BY MOUTH EVERY DAY 10/21/2013 09/28/2014 Inactive Abilify 2 mg tablet RxNorm: 125337 1 Tablet(s) PO QHS 09/25/2013 01/22/2014 Inactive Synthroid 100 mcg tablet RxNorm: 579673 Tablet(s) PO TAKE ONE TABLET BY MOUTH EVERY DAY 09/24/2013 12/25/2013 Inactive Abilify 2 mg tablet RxNorm: 868325 1 Tablet(s) PO QHS 09/24/2013 09/24/2013 Inactive Rocephin 500 mg solution for injection RxNorm: 261986 1ml Milliliter(s) Inj 09/24/2013 09/24/2013 Inactive Rocephin 500 mg solution for injection RxNorm: 197656 1 Milliliter(s) Inj 09/19/2013 09/19/2013 Inactive Bystolic 5 mg tablet RxNorm: 750518 1 1/2 Tablet(s) PO daily 09/17/2013 03/15/2014 Inactive 1 1/2 daily may have 90 day if cheaper Bystolic 5 mg tablet RxNorm: 103402 1 1/2 Tablet(s) PO daily 09/17/2013 09/16/2013 Inactive 1 1/2 daily Lipitor 10 mg tablet RxNorm: 912390 Tablet(s) PO TAKE ONE TABLET BY MOUTH EVERY DAY 09/12/2013 01/13/2014 Inactive hydrocodone 10 mg-acetaminophen 325 mg tablet RxNorm: 191893 Tablet(s) PO TAKE ONE TO TWO TABLETS BY MOUTH EVERY 6 HOURS NEEDED FOR PAIN 09/09/2013 10/29/2017 Inactive (Appended: Controlled substance eRx refill - RxReferenceNumber: [id number]) hydrocodone 10 mg-acetaminophen 325 mg tablet RxNorm: 919558 1 Tablet(s) PO Q6 PRN 09/09/2013 02/06/2014 Inactive hydrocodone 10 mg-acetaminophen 325 mg tablet RxNorm: 121274 Tablet(s) PO TAKE ONE TO TWO TABLETS BY MOUTH EVERY 6 HOURS NEEDED FOR PAIN 09/06/2013 10/29/2017 Inactive (Appended: Controlled substance eRx refill - RxReferenceNumber: [id number]) Norvasc 10 mg tablet RxNorm: 322858 Tablet(s) PO TAKE ONE TABLET BY MOUTH EVERY DAY 09/05/2013 10/25/2015 Inactive trazodone 50 mg tablet RxNorm: 361383 1 1/2 Tablet(s) PO QHS 09/03/2013 03/17/2014 Inactive 75q hs x 2 week may increase to 100mg if nec after that nystatin 100,000 unit/mL oral suspension RxNorm: 899224 6 Milliliter(s) PO QID 08/06/2013 08/15/2013 Inactive Flonase 50 mcg/actuation nasal spray,suspension RxNorm: 047406 2 Anton NASAL daily 08/06/2013 03/03/2014 Inactive nystatin 100,000 unit/mL oral suspension RxNorm: 181217 6 Unit(s) PO QID 08/05/2013 08/05/2013 Inactive Phenergan with Codeine Syrup RxNorm: 5 Milliliter(s) PO Q4 PRN 08/05/2013 12/02/2013 Inactive 8 ounces alprazolam 0.25 mg tablet RxNorm: 470433 1 Tablet(s) PO QDAY PRN 07/29/2013 01/14/2014 Inactive Diflucan 150 mg tablet RxNorm: 546949 1 Tablet(s) PO daily 07/24/2013 07/26/2013 Inactive hydrochlorothiazide 25 mg tablet RxNorm: 846468 Tablet(s) PO TAKE ONE TABLET BY MOUTH EVERY DAY MUST CALL MD FOR APPOINTMENT 07/19/2013 03/05/2014 Inactive Phenergan with Codeine Syrup RxNorm: 10 Milliliter(s) PO Q4 PRN 07/10/2013 08/04/2013 Inactive 8 ounces Rocephin 500 mg solution for injection RxNorm: 467478 1 Inj 07/10/2013 07/10/2013 Inactive cefdinir 300 mg capsule RxNorm: 883708 1 Capsule(s) PO BID 07/10/2013 07/16/2013 Inactive prednisone 10 mg tablet RxNorm: 994020 3 Tablet(s) PO daily 07/10/2013 07/14/2013 Inactive Carafate 100 mg/mL oral suspension RxNorm: 018965 10 Milliliter(s) PO Q6 PRN pt to take carafate 10mL every 6 hours as needed. 07/10/2013 08/05/2014 Inactive Kenalog 40 mg/mL suspension for injection RxNorm: 5357639 1 Milliliter(s) Inj 07/10/2013 07/10/2013 Inactive trazodone 50 mg tablet RxNorm: 196478 1 Tablet(s) PO QHS 07/10/2013 09/02/2013 Inactive sulfamethoxazole 800 mg-trimethoprim 160 mg tablet RxNorm: 746033 1 Tablet(s) PO BID 06/03/2013 06/12/2013 Inactive Synthroid 125 mcg tablet RxNorm: 391821 1 Tablet(s) PO daily 05/07/2013 09/23/2013 Inactive Bystolic 10 mg tablet RxNorm: 990464 1.5 Tablet(s) PO daily 05/07/2013 09/03/2013 Inactive Voltaren 1 % Topical Gel RxNorm: 011055 4 Gram(s) TOP QID apply 4 grams to knees, 2 grams to hands and ankles four times daily. 05/07/2013 09/03/2013 Inactive hydrocodone 10 mg-acetaminophen 325 mg tablet RxNorm: 703202 1 Tablet(s) PO Q6 PRN 04/23/2013 09/09/2013 Inactive Norvasc 10 mg tablet RxNorm: 631329 Tablet(s) PO TAKE ONE TABLET BY MOUTH EVERY DAY 04/23/2013 09/04/2013 Inactive alprazolam 0.25 mg tablet RxNorm: 298072 1 Tablet(s) PO QDAY PRN 03/25/2013 07/22/2013 Inactive Bystolic 10 mg tablet RxNorm: 093848 1 Tablet(s) PO daily TAKE ONE TABLET BY MOUTH EVERY DAY 03/25/2013 05/06/2013 Inactive zolpidem 10 mg tablet RxNorm: 284414 1 Tablet(s) PO HS PRN 03/25/2013 07/09/2013 Inactive gentamicin 0.3 % Eye Drops RxNorm: 3785274 3 Drop(s) OPH QID three gtts to each eye QID x 7 days 03/11/2013 03/10/2013 Inactive gentamicin 0.3 % eye drops RxNorm: 211176 3 Drop(s) OPH QID three gtts to each eye QID x 7 days 03/11/2013 03/17/2013 Inactive Nexium 40 mg capsule,delayed release RxNorm: 147712 Capsule(s) PO TAKE ONE CAPSULE BY MOUTH EVERY DAY 02/15/2013 02/17/2014 Inactive Cymbalta 60 mg capsule,delayed release RxNorm: 896478 Capsule(s) PO TAKE ONE CAPSULE BY MOUTH TWICE A DAY 02/15/2013 02/17/2014 Inactive hydrocodone 10 mg-acetaminophen 325 mg tablet RxNorm: 5247449 1 Tablet(s) PO Q6 PRN 01/22/2013 04/22/2013 Inactive Lipitor 10 mg tablet RxNorm: 225434 Tablet(s) PO TAKE ONE TABLET BY MOUTH EVERY DAY 01/07/2013 09/11/2013 Inactive Cymbalta 60 mg capsule,delayed release RxNorm: 669214 Capsule(s) PO TAKE ONE CAPSULE BY MOUTH TWICE A DAY 01/02/2013 02/14/2013 Inactive Synthroid 100 mcg tablet RxNorm: 918377 1 Tablet(s) PO 12/03/2012 05/06/2013 Inactive Enablex 7.5 mg tablet,extended release RxNorm: 612484 1 Tablet(s) PO daily 11/28/2012 11/27/2012 Inactive Enablex 7.5 mg tablet,extended release RxNorm: 328378 1 Tablet(s) PO daily 11/28/2012 11/28/2012 Inactive scopolamine 1.5 mg 72 hr Transderm Patch RxNorm: 251495 1 Milligram(s) TD q72 hours 11/26/2012 05/06/2013 Inactive hydrochlorothiazide 25 mg tablet RxNorm: 187110 Tablet(s) PO TAKE ONE TABLET BY MOUTH EVERY DAY MUST CALL MD FOR APPOINTMENT 11/24/2012 07/18/2013 Inactive Cymbalta 60 mg capsule,delayed release RxNorm: 055790 Capsule(s) PO TAKE ONE CAPSULE BY MOUTH TWICE A DAY 10/26/2012 01/01/2013 Inactive Bystolic 10 mg tablet RxNorm: 892574 Tablet(s) PO TAKE ONE TABLET BY MOUTH EVERY DAY 10/12/2012 03/25/2013 Inactive zolpidem 10 mg tablet RxNorm: 474919 1 Tablet(s) PO HS PRN 10/02/2012 01/29/2013 Inactive alprazolam 0.25 mg tablet RxNorm: 391127 1 Tablet(s) PO QDAY PRN 10/02/2012 01/29/2013 Inactive Kenalog 40 mg/mL Susp for Injection RxNorm: 6504547 1 Milliliter(s) Inj 09/24/2012 09/24/2012 Inactive Diflucan 150 mg tablet RxNorm: 005966 1 Tablet(s) PO daily 09/24/2012 09/30/2012 Inactive acyclovir 400 mg tablet RxNorm: 711767 1 Tablet(s) PO QID 09/24/2012 10/08/2012 Inactive Cipro 500 mg tablet RxNorm: 468164 1 Tablet(s) PO BID 09/24/2012 09/30/2012 Inactive Tamiflu 75 mg capsule RxNorm: 228514 1 Capsule(s) PO BID 09/17/2012 09/16/2012 Inactive Tamiflu 75 mg capsule RxNorm: 815843 1 Capsule(s) PO BID 09/17/2012 09/16/2012 Inactive Tamiflu 75 mg capsule RxNorm: 589108 1 Capsule(s) PO BID please disregard order for #14 09/17/2012 09/21/2012 Inactive fluconazole 150 mg tablet RxNorm: 532577 1 Tablet(s) PO daily 09/10/2012 09/13/2012 Inactive ketoconazole 2 % Topical Cream RxNorm: 517476 Application TOP BID apply to affected area BID until gone 08/31/2012 11/01/2017 Inactive Norvasc 10 mg tablet RxNorm: 442705 Tablet(s) PO TAKE ONE TABLET BY MOUTH EVERY DAY 08/29/2012 04/22/2013 Inactive Cipro 500 mg tablet RxNorm: 125046 1 Tablet(s) PO BID 08/17/2012 08/26/2012 Inactive Flagyl 500 mg tablet RxNorm: 036792 1 Tablet(s) PO TID 08/17/2012 08/23/2012 Inactive Cipro 500 mg tablet RxNorm: 184132 1 Tablet(s) PO BID 08/17/2012 08/16/2012 Inactive zolpidem 10 mg tablet RxNorm: 136723 1 Tablet(s) PO HS PRN 08/17/2012 09/15/2012 Inactive Flagyl 500 mg tablet RxNorm: 942069 1 Tablet(s) PO TID 08/17/2012 08/16/2012 Inactive alprazolam 0.25 mg tablet RxNorm: 922898 1 Tablet(s) PO QDAY PRN 08/17/2012 09/15/2012 Inactive Belle Allergy 180 mg tablet RxNorm: 671494 1 Tablet(s) PO daily 08/08/2012 02/03/2013 Inactive hydrochlorothiazide 25 mg tablet RxNorm: 717895 1/2 Tablet(s) PO daily 08/08/2012 11/05/2012 Inactive needs appt Carafate 1 gram tablet RxNorm: 931959 1 Tablet(s) PO QID mix with 10 cc water and dissolve into slurry 08/08/2012 08/21/2012 Inactive hydrocodone 10 mg-acetaminophen 325 mg tablet RxNorm: 7073312 1 Tablet(s) PO Q6 PRN 08/08/2012 01/21/2013 Inactive Synthroid 100 mcg tablet RxNorm: 975431 1 Tablet(s) PO 08/08/2012 12/02/2012 Inactive Cymbalta 60 mg capsule,delayed release RxNorm: 395046 Capsule(s) PO 07/23/2012 10/25/2012 Inactive TAKE ONE CAPSULE BY MOUTH TWICE A DAY Nexium 40 mg capsule,delayed release RxNorm: 696288 Capsule(s) PO 06/20/2012 02/14/2013 Inactive TAKE ONE CAPSULE BY MOUTH EVERY DAY Lipitor 10 mg tablet RxNorm: 333575 Tablet(s) PO 06/20/2012 01/06/2013 Inactive TAKE ONE TABLET BY MOUTH EVERY DAY hydrochlorothiazide 25 mg tablet RxNorm: 205485 1 Tablet(s) PO daily 06/19/2012 08/07/2012 Inactive needs appt alprazolam 0.25 mg tablet RxNorm: 015780 1 Tablet(s) PO QDAY PRN 06/05/2012 07/04/2012 Inactive zolpidem 10 mg tablet RxNorm: 282610 1 Tablet(s) PO HS PRN 06/05/2012 07/04/2012 Inactive zolpidem 10 mg tablet RxNorm: 408516 1 Tablet(s) PO HS PRN 04/16/2012 05/15/2012 Inactive alprazolam 0.25 mg tablet RxNorm: 955252 1 Tablet(s) PO QDAY PRN 04/16/2012 05/15/2012 Inactive Cymbalta 60 mg capsule,delayed release RxNorm: 227485 1 Capsule(s) PO BID 03/22/2012 07/19/2012 Inactive Fioricet 50 mg-325 mg-40 mg tablet RxNorm: 912181 1 Tablet(s) PO Q4 PRN 03/22/2012 11/24/2013 Inactive Bystolic 10 mg tablet RxNorm: 041157 Tablet(s) PO 03/22/2012 10/11/2012 Inactive TAKE ONE TABLET BY MOUTH EVERY DAY potassium chloride ER 10 mEq Tab RxNorm: 959649 1 Tablet(s) PO daily 02/24/2012 03/01/2012 Inactive Lasix 20 mg Tab RxNorm: 376249 1 Tablet(s) PO daily 02/22/2012 02/21/2012 Inactive KCL 10 meq RxNorm: 1 PO daily 02/22/2012 02/21/2012 Inactive potassium chloride ER 10 mEq Tab RxNorm: 880490 1 Tablet(s) PO daily 02/22/2012 02/21/2012 Inactive Lasix 20 mg Tab RxNorm: 250050 1 Tablet(s) PO daily 02/22/2012 02/28/2012 Inactive KCL 10 meq RxNorm: 1 PO daily 02/22/2012 02/22/2012 Inactive potassium chloride ER 10 mEq Tab RxNorm: 446496 1 Tablet(s) PO daily 02/22/2012 02/23/2012 Inactive Rocephin 500 mg Solution for Injection RxNorm: 712504 Inj 02/15/2012 02/15/2012 Inactive Nexium 40 mg capsule,delayed release RxNorm: 220007 1 Capsule(s) PO daily 02/15/2012 No Stop Date Active Bystolic 10 mg Tab RxNorm: 303983 1 Tablet(s) PO daily 02/15/2012 08/12/2012 Inactive alprazolam 0.25 mg tablet RxNorm: 677023 1 Tablet(s) PO QDAY PRN 01/31/2012 02/29/2012 Inactive zolpidem 10 mg tablet RxNorm: 185105 1 Tablet(s) PO HS PRN 01/31/2012 02/29/2012 Inactive alprazolam 0.25 mg Tab RxNorm: 162326 1 Tablet(s) PO QDAY PRN 12/16/2011 01/14/2012 Inactive zolpidem 10 mg Tab RxNorm: 729998 1 Tablet(s) PO HS PRN 12/16/2011 01/14/2012 Inactive Norvasc 10 mg tablet RxNorm: 276907 1 Tablet(s) PO daily 12/02/2011 02/21/2012 Inactive Lipitor 10 mg tablet RxNorm: 557321 1 Tablet(s) PO daily 11/16/2011 05/13/2012 Inactive zolpidem 10 mg Tab RxNorm: 253590 1 Tablet(s) PO HS PRN 10/26/2011 12/15/2011 Inactive alprazolam 0.25 mg Tab RxNorm: 076825 1 Tablet(s) PO QDAY PRN 10/26/2011 12/15/2011 Inactive hydrochlorothiazide 25 mg tablet RxNorm: 543068 1 Tablet(s) PO daily 09/05/2011 03/02/2012 Inactive Synthroid 75 mcg tablet RxNorm: 124871 1 Tablet(s) PO daily 08/01/2011 02/26/2012 Inactive Abilify 2 mg Tab RxNorm: 352507 1 Tablet(s) PO QHS 08/01/2011 09/10/2012 Inactive dicyclomine 10 mg Cap RxNorm: 798610 1 Capsule(s) PO TID 08/01/2011 10/29/2011 Inactive alprazolam 0.25 mg Tab RxNorm: 189790 1 Tablet(s) PO QDAY PRN 07/26/2011 10/25/2011 Inactive Fioricet 50 mg-325 mg-40 mg tablet RxNorm: 631399 1 Tablet(s) PO Q4 PRN 07/14/2011 03/21/2012 Inactive Rocephin 500 mg Solution for Injection RxNorm: 992500 1 Milliliter(s) Inj 07/14/2011 08/01/2011 Inactive Nexium 40 mg Capsule, delayed release RxNorm: 510294 1 Capsule(s) PO daily 05/23/2011 10/06/2011 Inactive Bystolic 10 mg tablet RxNorm: 184359 1 Tablet(s) PO daily 05/23/2011 11/18/2011 Inactive Bystolic 10 mg Tab RxNorm: 640094 1 Tablet(s) PO daily 05/23/2011 05/22/2011 Inactive alprazolam 0.25 mg Tab RxNorm: 078757 1 Tablet(s) PO QDAY PRN 05/23/2011 07/25/2011 Inactive Influenza Virus Vaccine 0.5 mL RxNorm: IM 05/23/2011 05/23/2011 Inactive zolpidem 10 mg Tab RxNorm: 722851 1 Tablet(s) PO HS PRN 05/23/2011 10/25/2011 Inactive Rocephin 500 mg Solution for Injection RxNorm: 238647 1 Milliliter(s) Inj 05/03/2011 07/14/2011 Inactive Kenalog 40 mg/mL Susp for Injection RxNorm: 2701834 1 Milliliter(s) Inj 05/03/2011 07/14/2011 Inactive Bactrim DS 800 mg-160 mg Tab RxNorm: 178115 1 Tablet(s) PO BID 05/03/2011 08/01/2011 Inactive Bystolic 10 mg tablet RxNorm: 946949 1 Tablet(s) PO daily No Start Date Active Flonase 50 mcg/actuation nasal spray,suspension RxNorm: 7621921 2 Anton NASAL daily No Start Date 08/05/2013 Inactive Levaquin 500 mg tablet RxNorm: 030378 Tablet(s) PO No Start Date 04/19/2017 Inactive Duragesic 50 mcg/hr transdermal patch RxNorm: 274632 1 TD q72 hours No Start Date 01/13/2014 Inactive Vesicare 5 mg tablet RxNorm: 357951 1 Tablet(s) PO daily No Start Date 01/06/2015 Inactive Celebrex 200 mg capsule RxNorm: 144988 1 Capsule(s) PO daily No Start Date 04/02/2014 Inactive zolpidem 10 mg Tab RxNorm: 345986 1 Tablet(s) PO HS PRN No Start Date 05/22/2011 Inactive Zyrtec 10 mg Tab RxNorm: 0117875 1 Tablet(s) PO daily No Start Date 08/08/2012 Inactive Flonase 50 mcg/actuation nasal spray,suspension RxNorm: 2730187 1 Anton NASAL daily No Start Date 11/07/2017 Inactive 1 spray to each nostril daily Nexium 40 mg Cap RxNorm: 861996 1 Capsule(s) PO daily No Start Date 05/22/2011 Inactive ketoconazole 2 % Topical Cream RxNorm: 687858 Application TOP BID apply to affected area BID until gone No Start Date 08/30/2012 Inactive aspirin 81 mg tablet RxNorm: 395158 1 Tablet(s) PO daily No Start Date 11/13/2017 Inactive Cymbalta 60 mg capsule,delayed release RxNorm: 686155 1 Capsule(s) PO BID No Start Date 03/21/2012 Inactive alprazolam 0.25 mg Tab RxNorm: 864626 1 Tablet(s) PO QDAY PRN No Start Date 05/22/2011 Inactive baclofen 10 mg tablet RxNorm: 340722 1 Tablet(s) PO TID as needed muscle spasms No Start Date 11/14/2017 Inactive Toprol XL 100 mg 24 hr Tab RxNorm: 578483 1 Tablet(s) PO BID No Start Date 04/25/2011 Inactive Xanax 0.25 mg tablet RxNorm: 355659 1 Tablet(s) PO daily as needed No Start Date 12/27/2015 Inactive Bystolic 10 mg Tab RxNorm: 804312 1 Tablet(s) PO daily No Start Date 05/22/2011 Inactive Fioricet 50 mg-325 mg-40 mg Tab RxNorm: 773989 1 Tablet(s) PO Q4 PRN No Start Date 07/13/2011 Inactive albuterol sulfate HFA 90 mcg/Actuation Aerosol Inhaler RxNorm: 0063463 1 INH Q4 PRN No Start Date 01/06/2015 Inactive Imitrex 50 mg tablet RxNorm: 839612 1 Tablet(s) PO Q8 as needed may repeat x1 dose in 1 hour of inital dose. No Start Date 02/24/2016 Inactive dc fioricet Tessalon 200 mg Cap RxNorm: 483850 1 Capsule(s) PO Q4 PRN No Start Date 02/14/2012 Inactive Zithromax Z-Sergio 250 mg tablet RxNorm: 685134 Tablet(s) PO No Start Date 11/10/2013 Inactive hydrochlorothiazide 25 mg Tab RxNorm: 226326 1 Tablet(s) PO daily No Start Date 09/04/2011 Inactive Fish Oil 1,000 mg Cap RxNorm: 1 Capsule(s) PO TID No Start Date 11/08/2017 Inactive Deplin 15 mg Tab RxNorm: 1 Tablet(s) PO daily No Start Date 08/01/2011 Inactive Brilinta 90 mg tablet RxNorm: 4719963 1 Tablet(s) PO BID No Start Date 11/23/2015 Inactive Synthroid 75 mcg Tab RxNorm: 256004 1 Tablet(s) PO daily No Start Date 07/31/2011 Inactive ciprofloxacin 0.3 % eye drops RxNorm: 199795 2 Drop(s) ophthalmic (eye) Q2H while awake x 2 days, then Q4H x 5 days No Start Date 11/22/2017 Inactive scopolamine 1.5 mg 72 hr Transderm Patch RxNorm: 744378 1 Milligram(s) TD q72 hours No Start Date 11/25/2012 Inactive hydrocodone-acetaminophen 10 mg-325 mg tablet RxNorm: 6869069 1 Tablet(s) PO Q6 PRN No Start Date 08/07/2012 Inactive Phenergan with Codeine Syrup RxNorm: 5-10 Milliliter(s) PO Q6 PRN No Start Date 02/14/2012 Inactive Norvasc 10 mg Tab RxNorm: 516945 1 Tablet(s) PO daily No Start Date 12/01/2011 Inactive Zithromax Z-Sergio 250 mg Tab RxNorm: 001073 Tablet(s) PO No Start Date 08/01/2011 Inactive Medication Administered Medication Codes Instructions Start Date Status ceftriaxone 500 mg solution for injection RxNorm: 9847161 05/28/2018 No longer Active Kenalog 40 mg/mL suspension for injection RxNorm: 1772339 Milliliter 05/28/2018 No longer Active Kenalog 40 mg/mL suspension for injection RxNorm: 4508855 1Milliliter 01/19/2018 No longer Active ceftriaxone 500 mg solution for injection RxNorm: 7734439 500Milligram 01/19/2018 No longer Active Kenalog 40 mg/mL suspension for injection RxNorm: 0061296 1Milliliter 06/27/2017 No longer Active Kenalog 40 mg/mL suspension for injection RxNorm: 3233014 Milliliter 04/20/2017 No longer Active Kenalog 40 mg/mL suspension for injection RxNorm: 8091046 1Milliliter 03/14/2017 No longer Active ceftriaxone 500 mg solution for injection RxNorm: 0923140 1Milliliter 11/28/2016 No longer Active Kenalog 40 mg/mL suspension for injection RxNorm: 1997614 Milliliter 11/07/2016 No longer Active ceftriaxone 500 mg solution for injection RxNorm: 0077897 11/07/2016 No longer Active ceftriaxone 500 mg solution for injection RxNorm: 7807403 12/07/2015 No longer Active ceftriaxone 500 mg solution for injection RxNorm: 8837946 Milliliter 11/24/2015 No longer Active Kenalog 40 mg/mL suspension for injection RxNorm: 5156904 1Milliliter 11/24/2015 No longer Active promethazine 25 mg/mL injection solution RxNorm: 498253 Milliliter 08/27/2015 No longer Active ketorolac 60 mg/2 mL intramuscular solution RxNorm: 215241 Milliliter 08/27/2015 No longer Active ceftriaxone 500 mg solution for injection RxNorm: 3250560 08/10/2015 No longer Active Kenalog 40 mg/mL suspension for injection RxNorm: 8650397 Milliliter 08/10/2015 No longer Active ceftriaxone 500 mg solution for injection RxNorm: 4518288 1Milliliter 07/28/2015 No longer Active Kenalog 40 mg/mL suspension for injection RxNorm: 1814441 Milliliter 03/19/2015 No longer Active Kenalog 40 mg/mL suspension for injection RxNorm: 2390672 Milliliter 06/23/2014 No longer Active ceftriaxone 500 mg solution for injection RxNorm: 963654 06/23/2014 No longer Active Rocephin 500 mg solution for injection RxNorm: 586455 1mlMilliliter 09/24/2013 No longer Active Rocephin 500 mg solution for injection RxNorm: 724784 1Milliliter 09/19/2013 No longer Active Kenalog 40 mg/mL suspension for injection RxNorm: 6394856 1Milliliter 07/10/2013 No longer Active Rocephin 500 mg solution for injection RxNorm: 073562 1 07/10/2013 No longer Active Kenalog 40 mg/mL Susp for Injection RxNorm: 6555880 1Milliliter 09/24/2012 No longer Active Rocephin 500 mg Solution for Injection RxNorm: 514220 02/15/2012 No longer Active Influenza Virus Vaccine [...] ICD-9: 682.9 09/19/2013 Thrush ICD-9: 112.0 08/05/2013 ACUTE MAXILLARY SINUSITIS ICD-9: 461.0 07/10/2013 Bronchitis ICD-9: 490 07/10/2013 ESOPHAGEAL REFLUX ICD-9: 530.81 07/10/2013 COUGH ICD-9: 786.2 07/10/2013 Insomnia ICD-9: 780.52 07/10/2013 ENCNTR LONG-RX USE NEC ICD-9: V58.69 [...] Item Item Code Result Date Comp Metabolic Gjz228 NA 141 mEq/L 09/12/2017 Comp Metabolic Axh083 K 4.1 mEq/L 09/12/2017 Comp Metabolic Kzz599 CL 105 mEq/L 09/12/2017 Comp Metabolic Ddc081 CO2 30.0 mEq/L 09/12/2017 Comp Metabolic Axo036 ANION GAP 10 09/12/2017 Comp Metabolic Pvq615 GLUCOSE 97 mg/dL 09/12/2017 Comp Metabolic Poe045 Creat 0.7 mg/dL 09/12/2017 Comp Metabolic Pgg764 eGFR 91 ml/min/1.73m2 09/12/2017 Comp Metabolic Cpc538 BUN 18 mg/dL 09/12/2017 Comp Metabolic Ryh373 B/C Ratio 26.5 Ratio 09/12/2017 Comp Metabolic Gwf864 CALCIUM 9.7 mg/dL 09/12/2017 Comp Metabolic Ncs442 ALK PHOS 60 U/L 09/12/2017 Comp Metabolic Cix354 AST(SGOT) 22 U/L 09/12/2017 Comp Metabolic Fqb127 ALT(SGPT) 23 U/L 09/12/2017 Comp Metabolic Ssl449 BILI T 0.4 mg/dL 09/12/2017 Comp Metabolic Dmd856 ALBUMIN 3.8 g/dL 09/12/2017 Comp Metabolic Aev134 TPRO 6.4 g/dL 09/12/2017 Comp Metabolic Lje241 GLOB 2.6 g/dL 09/12/2017 Comp Metabolic Tdy272 A/G Ratio 1.5 Ratio 09/12/2017 Comp Metabolic Srk994 Osmo 283 mOsmo 09/12/2017 Cbc With Differential [...] 30.7 pg 09/12/2017 Cbc With Differential Ord2 Coal% 7.2 % 09/12/2017 Cbc With Differential Ord2 [...] 2.46 K/ul 09/12/2017 Cbc With Differential Ord2 Coal ABS# 0.6 K/ul 09/12/2017 Cbc With Differential [...] 31.4 pg 11/07/2016 Cbc With Differential Ord2 Coal% 6.1 % 11/07/2016 Cbc With Differential Ord2 [...] 2.48 K/ul 11/07/2016 Cbc With Differential Ord2 Coal ABS# 0.6 K/ul 11/07/2016 Cbc With Differential Ord2 Eos ABS# 0.3 K/ul 11/07/2016 Cbc With Differential Ord2 Baso ABS# 0.1 K/ul 11/07/2016 Comp Metabolic Mgq263 NA 139 mEq/L 11/07/2016 Comp Metabolic Srg372 K 3.8 mEq/L 11/07/2016 Comp Metabolic Dna665 CL 106 mEq/L 11/07/2016 Comp Metabolic Stm113 CO2 25.0 mEq/L 11/07/2016 Comp Metabolic Oqz022 ANION GAP 12 11/07/2016 Comp Metabolic Ftq559 GLUCOSE 98 mg/dL 11/07/2016 Comp Metabolic Zrf489 Creat 0.8 mg/dL 11/07/2016 Comp Metabolic Voi287 eGFR 71 ml/min/1.73m2 11/07/2016 Comp Metabolic Mdn530 BUN 36 mg/dL 11/07/2016 Comp Metabolic Nvz898 B/C Ratio 42.9 Ratio 11/07/2016 Comp Metabolic Tlf794 CALCIUM 9.9 mg/dL 11/07/2016 Comp Metabolic Cch692 ALK PHOS 57 U/L 11/07/2016 Comp Metabolic Cmf503 AST(SGOT) 24 U/L 11/07/2016 Comp Metabolic Zlb606 ALT(SGPT) 28 U/L 11/07/2016 Comp Metabolic Ngw850 BILI T 0.4 mg/dL 11/07/2016 Comp Metabolic Vsk582 ALBUMIN 4.2 g/dL 11/07/2016 Comp Metabolic Lqg409 TPRO 7.0 g/dL 11/07/2016 Comp Metabolic Dmd601 GLOB 2.8 g/dL 11/07/2016 Comp Metabolic Ims898 A/G Ratio 1.5 Ratio 11/07/2016 Comp Metabolic Ksy316 Osmo 286 mOsmo 11/07/2016 Free T4 Mmk300 FREE T4 0.75 ng/dL 11/07/2016 Tsh Ord6 hTSH II 3.46 uIU/mL 11/07/2016 Comp Metabolic Vru367 NA 138 mEq/L 05/10/2016 Comp Metabolic Tvb010 K 3.8 mEq/L 05/10/2016 Comp Metabolic Xbs698 CL 102 mEq/L 05/10/2016 Comp Metabolic Kkp508 CO2 29.0 mEq/L 05/10/2016 Comp Metabolic Zuq689 ANION GAP 11 05/10/2016 Comp Metabolic Hwz405 GLUCOSE 107 mg/dL 05/10/2016 Comp Metabolic Chl345 Creat 0.7 mg/dL 05/10/2016 Comp Metabolic Kir761 eGFR 93 ml/min/1.73m2 05/10/2016 Comp Metabolic Tug739 BUN 18 mg/dL 05/10/2016 Comp Metabolic Ttj349 B/C Ratio 26.9 Ratio 05/10/2016 Comp Metabolic Kfo629 CALCIUM 9.8 mg/dL 05/10/2016 Comp Metabolic Pwq676 ALK PHOS 60 U/L 05/10/2016 Comp Metabolic Ekh694 AST(SGOT) 21 U/L 05/10/2016 Comp Metabolic Jog134 ALT(SGPT) 23 U/L 05/10/2016 Comp Metabolic Zov048 BILI T 0.5 mg/dL 05/10/2016 Comp Metabolic Oks774 ALBUMIN 4.1 g/dL 05/10/2016 Comp Metabolic Hog729 TPRO 6.7 g/dL 05/10/2016 Comp Metabolic Xye759 GLOB 2.7 g/dL 05/10/2016 Comp Metabolic Qdl308 A/G Ratio 1.5 Ratio 05/10/2016 Comp Metabolic Psl305 Osmo 278 mOsmo 05/10/2016 Lipid Ord30 CHOL 169 mg/dL 05/10/2016 Lipid Ord30 HDL 50.0 mg/dl 05/10/2016 Lipid Ord30 TRIG 161 mg/dL 05/10/2016 Lipid Ord30 LDL 87 mg/dL 05/10/2016 Lipid Ord30 C/HDL 3.4 Ratio 05/10/2016 Comp Metabolic Rgw939 NA 137 mEq/L 06/12/2015 Comp Metabolic Raj413 K 3.8 mEq/L 06/12/2015 Comp Metabolic Dqw955 CL 104 mEq/L 06/12/2015 Comp Metabolic Znz722 CO2 24.0 mEq/L 06/12/2015 Comp Metabolic Ujv224 ANION GAP 13 06/12/2015 Comp Metabolic Clv892 GLUCOSE 92 mg/dL 06/12/2015 Comp Metabolic Brc612 Creat 0.7 mg/dL 06/12/2015 Comp Metabolic Ieq401 eGFR 87 ml/min/1.73m2 06/12/2015 Comp Metabolic Dee826 BUN 31 mg/dL 06/12/2015 Comp Metabolic Eul692 B/C Ratio 43.7 Ratio 06/12/2015 Comp Metabolic Rqp944 CALCIUM 10.0 mg/dL 06/12/2015 Comp Metabolic Whe560 ALK PHOS 58 U/L 06/12/2015 Comp Metabolic Exh918 AST(SGOT) 32 U/L 06/12/2015 Comp Metabolic Xeq215 ALT(SGPT) 33 U/L 06/12/2015 Comp Metabolic Ibi347 BILI T 0.5 mg/dL 06/12/2015 Comp Metabolic Mzu600 ALBUMIN 4.1 g/dL 06/12/2015 Comp Metabolic Gpc914 TPRO 6.6 g/dL 06/12/2015 Comp Metabolic Hqm698 GLOB 2.5 g/dL 06/12/2015 Comp Metabolic Gep099 A/G Ratio 1.6 Ratio 06/12/2015 Comp Metabolic Ygw566 Osmo 280 mOsmo 06/12/2015 Cbc With Differential [...] Differential Ord2 RDW 14.2 % 06/12/2015 CBC 7839816 WBC 8.7 10e9/L 04/30/2013 CBC 9853505 RBC 4.63 10e12/L 04/30/2013 CBC 9208072 HGB 14.1 g/dL 04/30/2013 CBC 4720272 HCT DET 42.2 % 04/30/2013 CBC 4392992 MCV 91.1 fL 04/30/2013 CBC 3109821 MCH 30.5 pg 04/30/2013 CBC 9966207 MCHC 33.4 g/dL 04/30/2013 CBC 6959649 PLT 248 10e9/L 04/30/2013 CBC 3173577 MPV 12.1 fL 04/30/2013 CBC 8063853 LARA % 59.0 % 04/30/2013 CBC 6902972 LY % 27.6 % 04/30/2013 CBC 6724962 MON % 8.0 % 04/30/2013 CBC 5860160 EOS % 4.8 % 04/30/2013 CBC 5483987 BASO % 0.6 % 04/30/2013 CBC 5795297 RDW 13.3 % 04/30/2013 CBC 0767895 ABS LARA 5.13 10e9/L 04/30/2013 CBC 1657617 ABS LYMPH 2.40 10e9/L 04/30/2013 CBC 5379342 ABS MONO 0.70 10e9/L 04/30/2013 CBC 3807240 ABS EOS 0.42 10e9/L 04/30/2013 CBC 2568292 ABS BASO 0.05 10e9/L 04/30/2013 CBC 8317516 RDW-SD 43.1 fL 04/30/2013 TSH 1445981 TSH 4.339 uIU/ML 04/30/2013 A1C HPLC 9161835 A1C HPLC 54238-9 5.6 % 04/30/2013 FREE T4 3927243 FREE T4 0.84 NG/DL 04/30/2013 GFR CALC 4065944 GFR AA >60 ML/MIN 04/30/2013 GFR CALC 9979507 GFR NON-AA >60 ML/MIN 04/30/2013 CHEM 14 8183300 AST 22 U/L 04/30/2013 CHEM 14 8295196 ALT 22 IU/L 04/30/2013 CHEM 14 9124748 BUN 24 MG/DL 04/30/2013 CHEM 14 7571638 ALBUMIN 4.2 GM/DL 04/30/2013 CHEM 14 9495007 CHLORIDE 107 MMOL/L 04/30/2013 CHEM 14 8171616 BILI TOT 0.3 MG/DL 04/30/2013 CHEM 14 7650765 ALK PHOS 88 U/L 04/30/2013 CHEM 14 1485358 SODIUM 141 MMOL/L 04/30/2013 CHEM 14 8183067 CREATININE 0.60 MG/DL 04/30/2013 CHEM 14 3572444 CALCIUM 9.9 MG/DL 04/30/2013 CHEM 14 7590913 POTASSIUM 3.7 MMOL/L 04/30/2013 CHEM 14 5385079 PROT TOT 6.6 GM/DL 04/30/2013 CHEM 14 7936844 GLUCOSE 123 MG/DL 04/30/2013 CHEM 14 6245633 BICARB 25 MMOL/L 04/30/2013 CHEM 14 5405759 ANION GAP 9 MEQ/L 04/30/2013 LIPID GRP HDL TEST 46 MG/DL 04/30/2013 LIPID GRP TRIG 148 MG/DL 04/30/2013 LIPID GRP TEST LDL 75 MG/DL 04/30/2013 LIPID GRP CHOL 151 MG/DL 04/30/2013 LIPID GRP RCHOL/HDL 3.28 RATIO 04/30/2013 TSH 2792053 TSH 3.341 uIU/ML 11/29/2012 CBC 6344775 WBC 8.4 10e9/L 11/29/2012 CBC 4093619 RBC 4.77 10e12/L 11/29/2012 CBC 9849930 HGB 14.9 g/dL 11/29/2012 CBC 4381033 HCT DET 44.2 % 11/29/2012 CBC 8398447 MCV 92.7 fL 11/29/2012 CBC 4163776 MCH 31.2 pg 11/29/2012 CBC 2468960 MCHC 33.7 g/dL 11/29/2012 CBC 1235159 PLT 253 10e9/L 11/29/2012 CBC 1644738 MPV 11.8 fL 11/29/2012 CBC 7784344 LARA % 54.9 % 11/29/2012 CBC 7152144 LY % 29.0 % 11/29/2012 CBC 9388574 MON % 10.4 % 11/29/2012 CBC 1851922 EOS % 5.1 % 11/29/2012 CBC 6910974 BASO % 0.6 % 11/29/2012 CBC 3095895 RDW 13.8 % 11/29/2012 CBC 4902216 ABS LARA 4.61 10e9/L 11/29/2012 CBC 3024476 ABS LYMPH 2.44 10e9/L 11/29/2012 CBC 0166611 ABS MONO 0.87 10e9/L 11/29/2012 CBC 0770730 ABS EOS 0.43 10e9/L 11/29/2012 CBC 6064579 ABS BASO 0.05 10e9/L 11/29/2012 CBC 2007700 RDW-SD 45.9 fL 11/29/2012 CHEM 14 5556264 AST 25 U/L 11/29/2012 CHEM 14 7137060 ALT 26 IU/L 11/29/2012 CHEM 14 0768336 BUN 25 MG/DL 11/29/2012 CHEM 14 0822757 ALBUMIN 4.4 GM/DL 11/29/2012 CHEM 14 5947854 CHLORIDE 106 MMOL/L 11/29/2012 CHEM 14 9379290 BILI TOT 0.4 MG/DL 11/29/2012 CHEM 14 0462859 ALK PHOS 86 U/L 11/29/2012 CHEM 14 8244064 SODIUM 141 MMOL/L 11/29/2012 CHEM 14 4275213 CREATININE 0.80 MG/DL 11/29/2012 CHEM 14 0260362 CALCIUM 9.7 MG/DL 11/29/2012 CHEM 14 8361309 POTASSIUM 4.0 MMOL/L 11/29/2012 CHEM 14 0018897 PROT TOT 6.6 GM/DL 11/29/2012 CHEM 14 9257645 GLUCOSE 112 MG/DL 11/29/2012 CHEM 14 3600387 BICARB 29 MMOL/L 11/29/2012 CHEM 14 3424699 ANION GAP 6 MEQ/L 11/29/2012 A1C HPLC 3197757 A1C HPLC 41315-4 5.5 % 11/29/2012 LIPID GRP HDL TEST 54 MG/DL 11/29/2012 LIPID GRP TRIG 77 MG/DL 11/29/2012 LIPID GRP TEST LDL 78 MG/DL 11/29/2012 LIPID GRP CHOL 147 MG/DL 11/29/2012 LIPID GRP RCHOL/HDL 2.72 RATIO 11/29/2012 FREE T4 6158085 FREE T4 1.23 NG/DL 11/29/2012 GFR CALC 6124815 GFR AA >60 ML/MIN 11/29/2012 GFR CALC 6851642 GFR NON-AA >60 ML/MIN 11/29/2012 CHEM 14 0904709 AST 23 U/L 08/07/2012 CHEM 14 3889991 ALT 34 IU/L 08/07/2012 CHEM 14 3392253 BUN 26 MG/DL 08/07/2012 CHEM 14 7432682 ALBUMIN 4.4 GM/DL 08/07/2012 CHEM 14 3613813 CHLORIDE 105 MMOL/L 08/07/2012 CHEM 14 3981401 BILI TOT 0.5 MG/DL 08/07/2012 CHEM 14 2831635 ALK PHOS 79 U/L 08/07/2012 CHEM 14 2046591 SODIUM 140 MMOL/L 08/07/2012 CHEM 14 3572147 CREATININE 0.71 MG/DL 08/07/2012 CHEM 14 1163586 CALCIUM 10.4 MG/DL 08/07/2012 CHEM 14 5517685 POTASSIUM 3.8 MMOL/L 08/07/2012 CHEM 14 2614054 PROT TOT 6.8 GM/DL 08/07/2012 CHEM 14 0961169 GLUCOSE 104 MG/DL 08/07/2012 CHEM 14 8613961 BICARB 27 MMOL/L 08/07/2012 CHEM 14 5998582 ANION GAP 8 MEQ/L 08/07/2012 A1C HPLC 9984025 A1C HPLC 86652-0 5.4 % 08/07/2012 FREE T4 2849383 FREE T4 1.11 NG/DL 08/07/2012 LIPID GRP HDL TEST 50 MG/DL 08/07/2012 LIPID GRP TRIG 127 MG/DL 08/07/2012 LIPID GRP TEST LDL 93 MG/DL 08/07/2012 LIPID GRP CHOL 168 MG/DL 08/07/2012 LIPID GRP RCHOL/HDL 3.36 RATIO 08/07/2012 CBC 2261760 WBC 8.7 10e9/L 08/07/2012 CBC 7455786 RBC 4.67 10e12/L 08/07/2012 CBC 0077885 HGB 14.4 g/dL 08/07/2012 CBC 8078374 HCT DET 42.8 % 08/07/2012 CBC 6637527 MCV 91.6 fL 08/07/2012 CBC 9022105 MCH 30.8 pg 08/07/2012 CBC 4505048 MCHC 33.6 g/dL 08/07/2012 CBC 1977929 PLT 271 10e9/L 08/07/2012 CBC 5243828 MPV 12.3 fL 08/07/2012 CBC 5549496 LARA % 50.6 % 08/07/2012 CBC 6046440 LY % 34.9 % 08/07/2012 CBC 9142587 MON % 9.1 % 08/07/2012 CBC 5541988 EOS % 5.1 % 08/07/2012 CBC 3690788 BASO % 0.3 % 08/07/2012 CBC 5728113 RDW 13.6 % 08/07/2012 CBC 0870451 ABS LARA 4.40 10e9/L 08/07/2012 CBC 9601482 ABS LYMPH 3.04 10e9/L 08/07/2012 CBC 6721244 ABS MONO 0.79 10e9/L 08/07/2012 CBC 0001429 ABS EOS 0.44 10e9/L 08/07/2012 CBC 9479443 ABS BASO 0.03 10e9/L 08/07/2012 CBC 0301558 RDW-SD 44.1 fL 08/07/2012 TSH 0986906 TSH 7.419 uIU/ML 08/07/2012 GFR CALC 8292814 GFR AA >60 ML/MIN 08/07/2012 GFR CALC 3494058 GFR NON-AA >60 ML/MIN 08/07/2012 A1C HPLC 8994031 A1C HPLC 09838-3 5.3 % 02/21/2012 TSH 0110508 TSH 0.832 uIU/ML 02/16/2012 FREE T4 0528834 FREE T4 1.04 NG/DL 02/16/2012 GFR CALC 0567511 GFR AA >60 ML/MIN 02/16/2012 GFR CALC 9063321 GFR NON-AA >60 ML/MIN 02/16/2012 [facility] GLUCOSE 112 MG/DL 02/16/2012 BMP CREATININE 0.65 MG/DL 02/16/2012 BMP BUN 17 MG/DL 02/16/2012 BMP SODIUM 144 MMOL/L 02/16/2012 BMP POTASSIUM 4.0 MMOL/L 02/16/2012 BMP CHLORIDE 107 MMOL/L 02/16/2012 BMP BICARB 29 MMOL/L 02/16/2012 BMP ANION GAP 8 MEQ/L 02/16/2012 BMP CALCIUM 9.5 MG/DL 02/16/2012 CBC 3763107 WBC 7.1 10e9/L 02/16/2012 CBC 1837289 RBC 4.47 10e12/L 02/16/2012 CBC 7955495 HGB 13.5 g/dL 02/16/2012 CBC 2660505 HCT DET 40.7 % 02/16/2012 CBC 4921119 MCV 91.1 fL 02/16/2012 CBC 1822476 MCH 30.2 pg 02/16/2012 CBC 4424226 MCHC 33.2 g/dL 02/16/2012 CBC 2327437 PLT 238 10e9/L 02/16/2012 CBC 1893284 MPV 11.4 fL 02/16/2012 CBC 9843113 LARA % 55.7 % 02/16/2012 CBC 8678507 LY % 29.6 % 02/16/2012 CBC 4137725 MON % 9.2 % 02/16/2012 CBC 2364051 EOS % 5.1 % 02/16/2012 CBC 5076107 BASO % 0.4 % 02/16/2012 CBC 2136738 RDW 13.0 % 02/16/2012 CBC 6614131 ABS LARA 3.95 10e9/L 02/16/2012 CBC 0870225 ABS LYMPH 2.10 10e9/L 02/16/2012 CBC 1746883 ABS MONO 0.65 10e9/L 02/16/2012 CBC 6792209 ABS EOS 0.36 10e9/L 02/16/2012 CBC 7937766 ABS BASO 0.03 10e9/L 02/16/2012 CBC 3329012 RDW-SD 42.4 fL 02/16/2012 URINALYSIS NONAUTO W/O SCOPE 09082 Specific [place] 1.015 DateTime(Free Text in Aprima) URINALYSIS NONAUTO W/O SCOPE 28258 PH 7 DateTime(Free Text in Aprima) URINALYSIS NONAUTO W/O SCOPE 51732 GLUCOSE neg DateTime(Free Text in Aprima) URINALYSIS NONAUTO W/O SCOPE 54137 Protein 1+ DateTime(Free Text in Aprima) URINALYSIS NONAUTO W/O SCOPE 44764 Blood neg DateTime(Free Text in Aprima) URINALYSIS NONAUTO W/O SCOPE 66319 Bilirubin neg DateTime(Free Text in Aprima) URINALYSIS NONAUTO W/O SCOPE 82344 Ketones neg DateTime(Free Text in Aprima) URINALYSIS NONAUTO W/O SCOPE 16630 Urobilinogen neg DateTime(Free Text in Aprima) URINALYSIS NONAUTO W/O SCOPE 92381 Nitrite postive DateTime(Free Text in Aprima) URINALYSIS NONAUTO W/O SCOPE 17547 Leukocytes 3+ DateTime(Free Text in Aprima) URINALYSIS NONAUTO W/O SCOPE 35291 Specific [place] 1.030 DateTime(Free Text in Aprima) URINALYSIS NONAUTO W/O SCOPE 11090 PH 6 DateTime(Free Text in Aprima) URINALYSIS NONAUTO W/O SCOPE 08448 GLUCOSE neg DateTime(Free Text in Aprima) URINALYSIS NONAUTO W/O SCOPE 57445 Protein neg DateTime(Free Text in Aprima) URINALYSIS NONAUTO W/O SCOPE 25592 Blood neg DateTime(Free Text in Aprima) URINALYSIS NONAUTO W/O SCOPE 12316 Bilirubin neg DateTime(Free Text in Aprima) URINALYSIS NONAUTO W/O SCOPE 22439 Ketones neg DateTime(Free Text in Aprima) URINALYSIS NONAUTO W/O SCOPE 26262 Urobilinogen neg DateTime(Free Text in Aprima) URINALYSIS NONAUTO W/O SCOPE 53978 Nitrite neg DateTime(Free Text in Aprima) URINALYSIS NONAUTO W/O SCOPE 80912 Leukocytes trace DateTime(Free Text in Aprima) URINALYSIS NONAUTO W/O SCOPE 30324 Specific [place] 1.005 DateTime(Free Text in Aprima) URINALYSIS NONAUTO W/O SCOPE 59942 PH 5 DateTime(Free Text in Aprima) URINALYSIS NONAUTO W/O SCOPE 28262 GLUCOSE neg DateTime(Free Text in Aprima) URINALYSIS NONAUTO W/O SCOPE 83225 Protein neg DateTime(Free Text in Aprima) URINALYSIS NONAUTO W/O SCOPE 96943 Blood neg DateTime(Free Text in Aprima) URINALYSIS NONAUTO W/O SCOPE 11626 Bilirubin neg DateTime(Free Text in Aprima) URINALYSIS NONAUTO W/O SCOPE 94020 Ketones neg DateTime(Free Text in Aprima) URINALYSIS NONAUTO W/O SCOPE 87018 Urobilinogen neg DateTime(Free Text in Aprima) URINALYSIS NONAUTO W/O SCOPE 11004 Nitrite neg DateTime(Free Text in Aprima) URINALYSIS NONAUTO W/O SCOPE 38737 Leukocytes neg DateTime(Free Text in Aprima) UA 22105 Specific [place] 1.030 DateTime(Free Text in Aprima) UA 00442 PH 5 DateTime(Free Text in Aprima) UA 69381 GLUCOSE neg DateTime(Free Text in Aprima) UA 78179 Protein trace DateTime(Free Text in Aprima) UA 57534 Blood large DateTime(Free Text in Aprima) UA 50726 Bilirubin neg DateTime(Free Text in Aprima) UA 75715 Ketones neg DateTime(Free Text in Aprima) UA 90049 Urobilinogen neg DateTime(Free Text in Aprima) UA 30819 Nitrite neg DateTime(Free Text in Aprima) UA 50696 Leukocytes large DateTime(Free Text in Aprima) Review [...] Codes Date URINALYSIS NONAUTO W/O SCOPE CPT-4: 76439 07/10/2018 TRIAMCINOLONE ACET INJ NOS CPT-4: J3301 05/28/2018 ROCEPHIN, PER 250 MG CPT- 4: J0696 05/28/2018 ROCEPHIN, PER 250 MG CPT- 4: J0696 01/19/2018 TRIAMCINOLONE ACET INJ NOS CPT-4: J3301 01/19/2018 PPPS, SUBSEQ VISIT CPT- 4: G0439 11/23/2017 TRIAMCINOLONE ACET INJ NOS CPT-4: J3301 06/27/2017 THER/PROPH/DIAG INJ SC/IM CPT-4: 35896 04/20/2017 TRIAMCINOLONE ACET INJ NOS CPT-4: J3301 04/20/2017 TRIAMCINOLONE ACET INJ NOS CPT-4: J3301 03/14/2017 ROCEPHIN, PER 250 MG CPT- 4: J0696 03/14/2017 DESTRUCT PREMALG LESION CPT-4: 55224 12/05/2016 DESTRUCT PREMALG LES 2-14 CPT-4: 96322 12/05/2016 URINALYSIS NONAUTO W/O SCOPE CPT-4: 33566 11/28/2016 ROCEPHIN, PER 250 MG CPT- 4: J0696 11/28/2016 PPPS, SUBSEQ VISIT CPT- 4: G0439 11/07/2016 THER/PROPH/DIAG INJ SC/IM CPT-4: 85173 11/07/2016 TRIAMCINOLONE ACET INJ NOS CPT-4: J3301 11/07/2016 ROCEPHIN, PER 250 MG CPT- 4: J0696 11/07/2016 THER/PROPH/DIAG INJ SC/IM CPT-4: 47931 08/15/2016 TRIAMCINOLONE ACET INJ NOS CPT-4: J3301 08/15/2016 ROCEPHIN, PER 250 MG CPT- 4: J0696 08/15/2016 URINALYSIS NONAUTO W/O SCOPE CPT-4: 61925 05/05/2016 ROCEPHIN, PER 250 MG CPT- 4: J0696 12/07/2015 TRIAMCINOLONE ACET INJ NOS CPT-4: J3301 11/24/2015 ROCEPHIN, PER 250 MG CPT- 4: J0696 11/24/2015 THER/PROPH/DIAG INJ SC/IM CPT-4: 02335 11/24/2015 THER/PROPH/DIAG INJ SC/IM CPT-4: 52565 08/27/2015 KETOROLAC TROMETHAMINE INJ CPT-4: J1885 08/27/2015 PROMETHAZINE HCL INJECTION CPT-4: J2550 08/27/2015 THER/PROPH/DIAG INJ SC/IM CPT-4: 50144 08/10/2015 TRIAMCINOLONE ACET INJ NOS CPT-4: J3301 08/10/2015 ROCEPHIN, PER 250 MG CPT- 4: J0696 08/10/2015 C WOUN RTS (CULTURE OTHR SPECIMN AEROBIC) CPT-4: 80092 07/28/2015 THER/PROPH/DIAG INJ SC/IM CPT-4: 41741 03/19/2015 TRIAMCINOLONE ACET INJ NOS CPT-4: J3301 03/19/2015 ROCEPHIN, PER 250 MG CPT- 4: J0696 06/23/2014 TRIAMCINOLONE ACET INJ NOS CPT-4: J3301 06/23/2014 INJ TRIGGER POINT 1/2 MUSCL CPT-4: 81761 06/05/2014 URINALYSIS NONAUTO W/O SCOPE CPT-4: 63187 02/11/2014 URINALYSIS NONAUTO W/O SCOPE CPT-4: 73896 10/15/2013 ROCEPHIN, PER 250 MG CPT- 4: J0696 09/24/2013 THER/PROPH/DIAG INJ SC/IM CPT-4: 62749 09/19/2013 ROCEPHIN, PER 250 MG CPT- 4: J0696 09/19/2013 PRESCRIP TRANSMIT VIA ERX SY CPT-4: G8553 08/05/2013 ROCEPHIN, PER 250 MG CPT- 4: J0696 07/10/2013 THER/PROPH/DIAG INJ SC/IM CPT-4: 84723 07/10/2013 TRIAMCINOLONE ACET INJ NOS CPT-4: J3301 07/10/2013 PRESCRIP TRANSMIT VIA ERX SY CPT-4: G8553 07/10/2013 46981 EST. PATIENT, LEVEL III CPT-4: 69875 06/03/2013 PRESCRIP TRANSMIT VIA ERX SY CPT-4: G8553 06/03/2013 PRESCRIP TRANSMIT VIA ERX SY CPT-4: G8553 05/07/2013 ROUTINE VENIPUNCTURE CPT- 4: 00836 04/30/2013 ROUTINE VENIPUNCTURE CPT- 4: 54608 11/29/2012 TRIAMCINOLONE ACET INJ NOS CPT-4: J3301 09/24/2012 THER/PROPH/DIAG INJ SC/IM CPT-4: 96654 09/24/2012 URINALYSIS NONAUTO W/O SCOPE CPT-4: 21278 09/24/2012 PRESCRIP TRANSMIT VIA ERX SY CPT-4: G8553 09/24/2012 PRESCRIP TRANSMIT VIA ERX SY CPT-4: G8553 09/10/2012 PRESCRIP TRANSMIT VIA ERX SY CPT-4: G8553 08/08/2012 ROUTINE VENIPUNCTURE CPT- 4: 71993 08/07/2012 ROUTINE VENIPUNCTURE CPT- 4: 43941 02/16/2012 URINALYSIS NONAUTO W/O SCOPE CPT-4: 29778 02/15/2012 ROCEPHIN, PER 250 MG CPT- 4: J0696 02/15/2012 PRESCRIP TRANSMIT VIA ERX SY CPT-4: G8553 02/15/2012 ROUTINE VENIPUNCTURE CPT- 4: 50913 11/08/2011 ROCEPHIN, PER 250 MG CPT- 4: J0696 07/14/2011 THER/PROPH/DIAG INJ SC/IM CPT-4: 28077 07/14/2011 Influenza Virus Vaccine, Split Virus, >3 Yrs, IM CPT-4: 63167 05/23/2011 IMMUNIZATION ADMIN CPT- 4: 09188 05/23/2011 THER/PROPH/DIAG INJ SC/IM CPT-4: 82147 05/03/2011 ROCEPHIN, PER 250 MG CPT- 4: J0696 05/03/2011 TRIAMCINOLONE ACET INJ NOS CPT-4: J3301 05/03/2011 Vital Signs Date Vital 10/08/2018 Blood Pressure 1: 140/80 Code: 8480-6 BMI: 32.1 Code: 73150-2 Heart Rate 1: 92 bpm Height: 4'11" SpO2: 103% Weight: 159 lbs 07/16/2018 Blood Pressure 1: 142/80 Code: 8480-6 BMI: 31.1 Code: 34218-4 Heart Rate 1: 78 bpm Height: 4'11" SpO2: 98% Weight: 154 lbs 07/10/2018 Blood Pressure 1: 156/82 Code: 8480-6 BMI: 31.1 Code: 27476-2 Heart Rate 1: 63 bpm Height: 4'11" SpO2: 99% Weight: 154 lbs 05/28/2018 Blood Pressure 1: 142/80 Code: 8480-6 Heart Rate 1: 82 bpm Height: SpO2: 97% Temperature: 35.9 (C) / 96.6 (F) Weight: 02/07/2018 Height: Weight: 01/19/2018 Blood Pressure 1: 128/76 Code: 8480-6 BMI: 31.2 Code: 06977-7 Heart Rate 1: 71 bpm Height: 4'11" SpO2: 96% Temperature: 36.5 (C) / 97.7 (F) Weight: 154 lbs 8 oz 11/23/2017 Blood Pressure 1: 146/80 Code: 8480-6 BMI: 31.7 Code: 43009-0 Heart Rate 1: 64 bpm Height: 4'11" SpO2: 97% Waist Measure (cm): 89 cm Weight: 157 lbs 09/12/2017 Blood Pressure 1: 140/86 Code: 8480-6 Heart Rate 1: 62 bpm SpO2: 96% Temperature: 36.6 (C) / 97.8 (F) Weight: 153 lbs 07/25/2017 Blood Pressure 1: 140/72 Code: 8480-6 BMI: 31.3 Code: 79206-3 Heart Rate 1: 76 bpm Height: 4'11" SpO2: 97% Temperature: 37.2 (C) / 99.0 (F) Weight: 155 lbs 06/27/2017 Blood Pressure 1: 144/84 Code: 8480-6 BMI: 31.1 Code: 01112-4 Heart Rate 1: 63 bpm Height: 4'11" SpO2: 99% Temperature: 36.4 (C) / 97.6 (F) Weight: 154 lbs 05/08/2017 Blood Pressure 1: 142/86 Code: 8480-6 BMI: 30.9 Code: 18870-6 Height: 4'11" Temperature: 36.3 (C) / 97.4 (F) Weight: 153 lbs 03/14/2017 Blood Pressure 1: 146/82 Code: 8480-6 BMI: 30.9 Code: 37840-1 Heart Rate 1: 64 bpm Height: 4'11" SpO2: 94% Weight: 153 lbs 02/20/2017 Blood Pressure 1: 142/80 Code: 8480-6 BMI: 30.9 Code: 86745-1 Heart Rate 1: 75 bpm Height: 4'11" SpO2: 97% Weight: 153 lbs 02/06/2017 Blood Pressure 1: 138/90 Code: 8480-6 BMI: 31.5 Code: 23140-8 Heart Rate 1: 61 bpm Height: 4'11" SpO2: 98% Weight: 156 lbs 12/05/2016 Blood Pressure 1: 122/72 Code: 8480-6 Heart Rate 1: 59 bpm Height: 4'11" SpO2: 98% Weight: 11/28/2016 Blood Pressure 1: 154/86 Code: 8480-6 BMI: 31.3 Code: 46903-1 Heart Rate 1: 64 bpm Height: 4'11" SpO2: 94% Temperature: 36.2 (C) / 97.2 (F) Weight: 155 lbs 11/07/2016 Blood Pressure 1: 128/64 Code: 8480-6 BMI: 31.5 Code: 55161-4 Heart Rate 1: 59 bpm Height: 4'11" SpO2: 97% Weight: 156 lbs 08/15/2016 Blood Pressure 1: 110/62 Code: 8480-6 BMI: 31.5 Code: 95912-4 Heart Rate 1: 76 bpm Height: 4'11" SpO2: 97% Weight: 156 lbs 06/07/2016 Blood Pressure 1: 120/80 Code: 8480-6 BMI: 32.9 Code: 26337-2 Heart Rate 1: 63 bpm Height: 4'11" SpO2: 93% Temperature: 36.5 (C) / 97.7 (F) Weight: 163 lbs 03/15/2016 Blood Pressure 1: 90/42 Code: 8480-6 Heart Rate 1: 65 bpm SpO2: 94% 03/14/2016 Blood Pressure 1: 188/110 Code: 8480-6 Heart Rate 1: 68 bpm SpO2: 96% 02/22/2016 Blood Pressure 1: 158/80 Code: 8480-6 BMI: 32.7 Code: 11795-4 Heart Rate 1: 71 bpm Height: 4'11" SpO2: 95% Weight: 162 lbs 12/07/2015 Blood Pressure 1: 140/88 Code: 8480-6 BMI: 32.9 Code: 45407-6 Heart Rate 1: 99 bpm Height: 4'11" SpO2: 94% Temperature: 35.9 (C) / 96.6 (F) Weight: 163 lbs 11/24/2015 Blood Pressure 1: 144/78 Code: 8480-6 BMI: 33.7 Code: 90847-2 Heart Rate 1: 60 bpm Height: 4'11" SpO2: 98% Temperature: 36.6 (C) / 97.9 (F) Weight: 167 lbs 08/27/2015 Blood Pressure 1: 164/82 Code: 8480-6 BMI: 32.3 Code: 57734-1 Heart Rate 1: 60 bpm Height: 4'11" SpO2: 93% Weight: 160 lbs 08/10/2015 Blood Pressure 1: 130/60 Code: 8480-6 BMI: 32.5 Code: 09452-3 Heart Rate 1: 64 bpm Height: 4'11" SpO2: 97% Weight: 161 lbs 07/28/2015 Blood Pressure 1: 124/68 Code: 8480-6 BMI: 32.5 Code: 18374-6 Heart Rate 1: 69 bpm Height: 4'11" SpO2: 97% Weight: 161 lbs 06/11/2015 Blood Pressure 1: 148/80 Code: 8480-6 BMI: 32.9 Code: 96595-3 Heart Rate 1: 70 bpm Height: 4'11" SpO2: 94% Weight: 163 lbs 03/19/2015 Blood Pressure 1: 150/102 Code: 8480-6 Blood Pressure 2: 152/92 Code: 8480-6 BMI: 32.5 Code: 13402-9 Heart Rate 1: 71 bpm Height: 4'11" SpO2: 96% Weight: 161 lbs 01/07/2015 Blood Pressure 1: 126/84 Code: 8480-6 Heart Rate 1: 80 bpm Height: 4'11" 09/23/2014 Blood Pressure 1: 112/72 Code: 8480-6 BMI: 33.9 Code: 84497-1 Heart Rate 1: 72 bpm Height: 4'11" Weight: 168 lbs 08/05/2014 Blood Pressure 1: 140/86 Code: 8480-6 BMI: 33.3 Code: 21162-2 Height: 4'11" Weight: 165 lbs 06/23/2014 Blood Pressure 1: 132/70 Code: 8480-6 BMI: 32.9 Code: 93067-3 Heart Rate 1: 58 bpm Height: 4'11" Temperature: 36.0 (C) / 96.8 (F) Weight: 163 lbs 06/05/2014 Blood Pressure 1: 121/85 Code: 8480-6 BMI: 34.3 Code: 05889-7 Height: 4'11" Weight: 170 lbs 04/03/2014 Blood Pressure 1: 128/80 Code: 8480-6 Heart Rate 1: 88 bpm Weight: 167 lbs 03/07/2014 Blood Pressure 1: 122/82 Code: 8480-6 BMI: 33.9 Code: 40444-1 Heart Rate 1: 68 bpm Height: 4'11" Weight: 168 lbs 11/21/2013 Blood Pressure 1: 100/58 Code: 8480-6 BMI: 33.7 Code: 98293-1 Heart Rate 1: 64 bpm Height: 4'11" Weight: 167 lbs 09/24/2013 Blood Pressure 1: 148/88 Code: 8480-6 Heart Rate 1: 68 bpm Weight: 09/19/2013 Blood Pressure 1: 120/80 Code: 8480-6 BMI: 33.9 Code: 52211-6 Heart Rate 1: 80 bpm Height: 4'11" Temperature: 36.9 (C) / 98.5 (F) Weight: 168 lbs 08/05/2013 Blood Pressure 1: 128/80 Code: 8480-6 BMI: 34.3 Code: 31418-5 Heart Rate 1: 64 bpm Height: 4'11" Temperature: 36.2 (C) / 97.2 (F) Weight: 170 lbs 07/10/2013 Blood Pressure 1: 120/84 Code: 8480-6 BMI: 36.0 Code: 12138-7 Heart Rate 1: 90 bpm Height: 4'11" SpO2: 97% Temperature: 36.8 (C) / 98.2 (F) Weight: 178 lbs 06/03/2013 Blood Pressure 1: 136/94 Code: 8480-6 BMI: 34.7 Code: 72691-3 Heart Rate 1: 68 bpm Height: 4'11" Temperature: 36.7 (C) / 98.0 (F) Weight: 172 lbs 05/13/2013 Blood Pressure 1: 132/90 Code: 8480-6 Heart Rate 1: 68 bpm 05/07/2013 Blood Pressure 1: 168/100 Code: 8480-6 BMI: 34.3 Code: 85422-7 Heart Rate 1: 76 bpm Height: 4'11" Weight: 170 lbs 12/03/2012 Blood Pressure 1: 142/78 Code: 8480-6 BMI: 33.5 Code: 09153-3 Heart Rate 1: 76 bpm Height: 4'11" Weight: 166 lbs 09/24/2012 Blood Pressure 1: 116/70 Code: 8480-6 Heart Rate 1: 68 bpm Respiratory Rate: 16 bpm Temperature: 36.9 (C) / 98.4 (F) Weight: 162 lbs 09/10/2012 Blood Pressure 1: 116/80 Code: 8480-6 BMI: 33.7 Code: 15567-3 Heart Rate 1: 76 bpm Height: 4'11" [...] 1: 149/85 Code: 8480-6 BMI: 32.9 Code: 68684-6 Heart Rate 1: 79 bpm Height: 4'11" Weight: 164 lbs 05/03/2011 Blood Pressure 1: 122/79 Code: 8480-6 BMI: 30.8 Code: 39663-3 Heart Rate 1: 72 bpm Height: 5'1" Weight: 163 lbs 04/25/2011 Blood Pressure 1: 137/84 Code: 8480-6 BMI: 31.0 Code: 80432-3 Heart Rate 1: 63 bpm Height: 5'1" [...] surg in december. then took trip to [facility] to see mother and has [...] Quality chronic 08/01/2011 states went shopping on [employer] over night without taking any of medications [...] data Encounters Encounter Performer Location Codes Date [id number] EST. PATIENT, LEVEL III Diagnosis: Other mucopurulent conjunctivitis, bilateral[ICD10: H10.023] Diagnosis: Other allergic rhinitis[ICD10: J30.89] Shahida Goldman MD, [facility] CPT-4: 13575 10/08/2018 84519 EST. PATIENT, LEVEL III Diagnosis: Essential (primary) hypertension[ICD10: I10] Diagnosis: Generalized anxiety disorder[ICD10: F41.1] Isabelle Goldman MD, [facility] CPT-4: 23886 07/16/2018 ([id number]) 84801 EST. PATIENT, LEVEL III Diagnosis: Acute recurrent maxillary sinusitis[ICD10: J01.01] Diagnosis: Frequency of micturition[ICD10: R35.0] Diagnosis: Low back pain[ICD10: M54.5] Shahida Goldman MD, [facility] CPT-4: 35313 07/10/2018 ([id number]) 24044 EST. PATIENT, LEVEL III Diagnosis: Acute recurrent maxillary sinusitis[ICD10: J01.01] Shahida Goldman MD, [facility] CPT-4: 78749 05/28/2018 ([id number]) Miscellaneous no charge Diagnosis: Laceration without foreign body, left lower leg, subsequent encounter[ICD10: S81.812D] Diagnosis: Laceration without foreign body, right lower leg, subsequent encounter[ICD10: S81.811D] [facility] CPT-4: 75211 02/08/2018 79019 EST. PATIENT, LEVEL III Diagnosis: Cellulitis of left lower limb[ICD10: L03.116] Diagnosis: Cellulitis of right lower limb[ICD10: L03.115] Diagnosis: Laceration without foreign body, left lower leg, initial encounter[ICD10: S81.812A] Diagnosis: Laceration without foreign body, right lower leg, initial encounter[ICD10: S81.811A] Isabelle Goldman MD, [facility] CPT-4: 56403 02/07/2018 ([id number]) 65226 EST. PATIENT, LEVEL IV Diagnosis: Primary generalized (osteo)arthritis[ICD10: M15.0] Diagnosis: Acute recurrent maxillary sinusitis[ICD10: J01.01] Diagnosis: Low back pain[ICD10: M54.5] Diagnosis: Other allergic rhinitis[ICD10: J30.89] Diagnosis: Obstructive sleep apnea (adult) (pediatric)[ICD10: G47.33] Shahida Goldman MD, [facility] CPT-4: 08457 01/19/2018 14615 EST. PATIENT, LEVEL IV Diagnosis: Diarrhea, unspecified[ICD10: R19.7] Diagnosis: Generalized abdominal pain[ICD10: R10.84] Diagnosis: Other allergic rhinitis[ICD10: J30.89] Diagnosis: Other acute sinusitis[ICD10: J01.80] Isabelle Goldman MD, [facility] CPT- 4: 54519 09/12/2017 96909 EST. PATIENT, LEVEL III Diagnosis: Acute laryngopharyngitis[ICD10: J06.0] Diagnosis: Other allergic rhinitis[ICD10: J30.89] Diagnosis: Cough[ICD10: R05] Diagnosis: Wheezing[ICD10: R06.2] Isabelle Goldman MD, [facility] CPT-4: 84810 07/25/2017 ([id number]) 30074 EST. PATIENT, LEVEL IV Diagnosis: Acute recurrent maxillary sinusitis[ICD10: J01.01] Diagnosis: Cervicalgia[ICD10: M54.2] Diagnosis: Diarrhea, unspecified[ICD10: R19.7] Shahida Goldman MD, [facility] CPT-4: 18323 06/27/2017 ([id number]) 51848 EST. PATIENT, LEVEL III Diagnosis: Chronic maxillary sinusitis[ICD10: J32.0] Diagnosis: Gastro-esophageal reflux disease without esophagitis[ICD10: K21.9] Shahida Goldman MD, [facility] CPT-4: 86412 05/08/2017 ([id number]) 05909 EST. PATIENT, LEVEL III Diagnosis: Acute recurrent maxillary sinusitis[ICD10: J01.01] Shahida Goldman MD, [facility] CPT-4: 88754 03/14/2017 48828 EST. PATIENT, LEVEL IV Diagnosis: Epigastric pain[ICD10: R10.13] Diagnosis: Left upper quadrant pain[ICD10: R10.12] Diagnosis: Left lower quadrant pain[ICD10: R10.32] Isabelle Goldman MD, [facility] CPT-4: 13625 02/20/2017 ([id number]) 66418 EST. PATIENT, LEVEL IV Diagnosis: Generalized anxiety disorder[ICD10: F41.1] Diagnosis: Major depressive disorder, recurrent, moderate[ICD10: F33.1] Diagnosis: Left upper quadrant pain[ICD10: R10.12] Diagnosis: Epigastric pain[ICD10: R10.13] Diagnosis: Actinic keratosis[ICD10: L57.0] Melba Goldman MD, [facility] CPT-4: 66443 02/06/2017 ([id number]) 05507 EST. PATIENT, LEVEL III Diagnosis: Actinic keratosis[ICD10: L57.0] Diagnosis: Major depressive disorder, recurrent, moderate[ICD10: F33.1] Melba Goldman MD, [facility] CPT-4: 69920 12/05/2016 ([id number]) 10317 EST. PATIENT, LEVEL III Diagnosis: Acute recurrent maxillary sinusitis[ICD10: J01.01] Diagnosis: Dysuria[ICD10: R30.0] Shahida Goldman MD, [facility] CPT-4: 01806 11/28/2016 83646 EST. PATIENT, LEVEL IV Diagnosis: Other acute sinusitis[ICD10: J01.80] Diagnosis: Acute laryngopharyngitis[ICD10: J06.0] Diagnosis: Other allergic rhinitis[ICD10: J30.89] sIabelle Goldman MD, [facility] CPT- 4: 15234 08/15/2016 ([id number]) 22559 EST. PATIENT, LEVEL III Diagnosis: Acute recurrent maxillary sinusitis[ICD10: J01.01] Diagnosis: Low back pain[ICD10: M54.5] Shahida Goldman MD, [facility] CPT-4: 40613 06/07/2016 ([id number]) Miscellaneous no charge Diagnosis: Essential (primary) hypertension[ICD10: I10] Shahida Goldman MD, [facility] CPT-4: 14505 03/15/2016 82345 EST. PATIENT, LEVEL IV Diagnosis: Essential (primary) hypertension[ICD10: I10] Diagnosis: Headache[ICD10: R51] Diagnosis: Generalized anxiety disorder[ICD10: F41.1] Shahida Goldman MD, [facility] CPT-4: 59621 03/14/2016 66815 EST. PATIENT, LEVEL III Diagnosis: Laceration without foreign body, left lower leg, initial encounter[ICD10: S81.812A] Isabelle Goldman MD, [facility] CPT-4: 92402 02/22/2016 ([id number]) 87009 EST. PATIENT, LEVEL III Diagnosis: Acute recurrent maxillary sinusitis[ICD10: J01.01] Diagnosis: Cough[ICD10: R05] Diagnosis: Allergic rhinitis due to pollen[ICD10: J30.1] Shahida Goldman MD, [facility] CPT-4: 23553 12/07/2015 ([id number]) 20279 EST. PATIENT, LEVEL IV Diagnosis: Essential (primary) hypertension[ICD10: I10] Diagnosis: Acute recurrent maxillary sinusitis[ICD10: J01.01] Diagnosis: Generalized anxiety disorder[ICD10: F41.1] Diagnosis: Cervicalgia[ICD10: M54.2] Diagnosis: Generalized intra-abdominal and pelvic swelling, mass and lump[ICD10: R19.07] Melba Goldman MD, [facility] CPT-4: 02301 11/24/2015 69345 EST. PATIENT, LEVEL III Diagnosis: Other migraine, intractable, without status migrainosus[ICD10: G43.819] Isabelle Goldman MD, [facility] CPT-4: 75020 08/27/2015 42065 EST. PATIENT, LEVEL III Diagnosis: Acute recurrent maxillary sinusitis[ICD10: J01.01] Diagnosis: Candidal stomatitis[ICD10: B37.0] Diagnosis: Acute laryngopharyngitis[ICD10: J06.0] Isabelle Goldman MD, [facility] CPT- 4: 31474 08/10/2015 89382 EST. PATIENT, LEVEL III Diagnosis: Superficial foreign body of left hand, initial encounter[ICD10: S60.552A] Melba Goldman MD, [facility] CPT-4: 24792 07/28/2015 ([id number]) 72926 EST. PATIENT, LEVEL III Diagnosis: Essential (primary) hypertension[ICD10: I10] Diagnosis: Tinea cruris[ICD10: B35.6] Diagnosis: Abnormal levels of other serum enzymes[ICD10: R74.8] Shahida Goldman MD, [facility] CPT-4: 60792 06/11/2015 ([id number]) 98673 EST. PATIENT, LEVEL IV Diagnosis: ESSENTIAL HYPERTENSION[ICD9: 401.9] Diagnosis: Hypothyroid[ICD9: 244.9] Diagnosis: ALLERGIC RHINITIS[ICD9: 477.9] Diagnosis: Anxiety[ICD9: 300.00] Diagnosis: Sleep apnea[ICD9: 780.57] Shahida Goldman MD, [facility] CPT-4: 67658 03/19/2015 ([id number]) 87071 EST. PATIENT, LEVEL III Diagnosis: ACUTE SINUSITIS[ICD9: 461.9] Celi Goldman MD, [facility] CPT-4: 86817 01/07/2015 ([id number]) 27076 EST. PATIENT, LEVEL III Diagnosis: Conjunctivitis[ICD9: 372.30] Shahida Goldamn MD, [facility] CPT-4: 81328 09/23/2014 81394 EST. PATIENT, LEVEL II Diagnosis: Noninfected skin tear of leg[ICD9: 891.0] Shahida Goldman MD, [facility] CPT-4: 43729 08/05/2014 ([id number]) 08775 EST. PATIENT, LEVEL III Diagnosis: Chronic maxillary sinusitis[ICD9: 473.0] Shahida Goldman MD, [facility] CPT-4: 40793 06/23/2014 61921 EST. PATIENT, LEVEL II Diagnosis: Headache[ICD9: 784.0] Shahida Goldman MD, [facility] CPT-4: 64689 06/05/2014 ([id number]) 06268 EST. PATIENT, LEVEL III Diagnosis: Abrasion of right leg[ICD9: 916.0] Diagnosis: Headache[ICD9: 784.0] Diagnosis: ALLERGIC RHINITIS[ICD9: 477.9] Shahida Goldman MD, [facility] CPT-4: 64825 04/03/2014 46727 EST. PATIENT, LEVEL II Diagnosis: Tinea corporis[ICD9: 110.5] Diagnosis: Exposure to scabies[ICD9: V01.89] Shahida Goldman MD, [facility] CPT- 4: 45726 03/07/2014 ([id number]) 64979 EST. PATIENT, LEVEL III Diagnosis: ESSENTIAL HYPERTENSION[SNOMED: 11867528] Diagnosis: OSTEOARTH NOS-UNSPEC[ICD9: 715.90] Diagnosis: Lumbago[ICD9: 724.2] Diagnosis: Cervicalgia[ICD9: 723.1] Shahida Goldman MD, [facility] CPT-4: 23739 11/21/2013 ([id number]) 36476 EST. PATIENT, LEVEL III Diagnosis: DEPRESSIVE DISORDER NEC[ICD9: 311] Diagnosis: Paronychia[ICD9: 681.9] Melba Goldman MD, [facility] CPT-4: 58046 09/24/2013 ([id number]) 31906 EST. PATIENT, LEVEL III Diagnosis: Paronychia[ICD9: 681.9] Diagnosis: Cellulitis[ICD9: 682.9] Melba Goldman MD, [facility] CPT-4: 90044 09/19/2013 ([id number]) 44301 EST. PATIENT, LEVEL III Diagnosis: Conjunctivitis[ICD9: 372.30] Diagnosis: Thrush[ICD9: 112.0] Shahida Goldman MD, [facility] CPT-4: 15949 08/05/2013 ([id number]) 16020 EST. PATIENT, LEVEL III Diagnosis: ACUTE MAXILLARY SINUSITIS[ICD9: 461.0] Diagnosis: COUGH[ICD9: 786.2] Diagnosis: Insomnia[ICD9: 780.52] Diagnosis: ESOPHAGEAL REFLUX[ICD9: 530.81] Melba Goldman MD, [facility] CPT-4: 24018 07/10/2013 ([id number]) Miscellaneous no charge Diagnosis: ESSENTIAL HYPERTENSION[SNOMED: 86635081] Melba Goldman MD [facility] CPT-4: 81167 05/13/2013 ([id number]) 53057 EST. PATIENT, LEVEL IV Diagnosis: ESSENTIAL HYPERTENSION[SNOMED: 06390766] Diagnosis: HYPOTHYROIDISM[ICD9: 244.9] Diagnosis: OSTEOARTH NOS-UNSPEC[ICD9: 715.90] Melba Goldman MD [facility] CPT- 4: 05483 05/07/2013 ([id number]) 59752 EST. PATIENT, LEVEL IV Diagnosis: Osteoarthritis[ICD9: 715.90] Diagnosis: Knee pain, bilateral[ICD9: 719.46] Diagnosis: Hip pain[ICD9: 719.45] Melba Goldman MD [facility] CPT-4: 33846 12/03/2012 ([id number]) 01156 EST. PATIENT, LEVEL III Diagnosis: Thrush[ICD9: 112.0] Melba Goldman MD [facility] CPT-4: 17923 09/24/2012 ([id number]) 43582 EST. PATIENT, LEVEL IV Diagnosis: ESSENTIAL HYPERTENSION[SNOMED: 59134891] Diagnosis: Thrush[ICD9: 112.0] Diagnosis: Sleep apnea[ICD9: 780.57] Melba Goldman MD [facility] CPT-4: 17375 09/10/2012 ([id number]) 38439 EST. PATIENT, LEVEL IV Diagnosis: Esophageal reflux[ICD9: 530.81] Diagnosis: Hypothyroid[ICD9: 244.9] Diagnosis: JOINT PAIN-MULT JOINTS[ICD9: 719.49] Diagnosis: ALLERGIC RHINITIS[ICD9: 477.9] Melba Goldman MD [facility] CPT-4: 25429 08/08/2012 ([id number]) 53613 EST. PATIENT, LEVEL IV Diagnosis: Urinary frequency[ICD9: 788.41] Diagnosis: EDEMA[ICD9: 782.3] Diagnosis: HYPOTHYROIDISM[ICD9: 244.9] Diagnosis: Fatigue[ICD9: 780.79] Melba Goldman MD [facility] CPT-4: 03531 02/15/2012 ([id number]) 94771 EST. PATIENT, LEVEL IV Diagnosis: Abdominal pain[ICD9: 789.00] Diagnosis: Fatigue[ICD9: 780.79] Diagnosis: Nausea[ICD9: 787.02] Melba Goldman MD, [facility] CPT-4: 00221 11/10/2011 67629 EST. PATIENT, LEVEL IV Diagnosis: ESSENTIAL HYPERTENSION[SNOMED: 79843953] Diagnosis: DIARRHEA[ICD9: 787.91] Diagnosis: DEPRESSIVE DISORDER NEC[ICD9: 311] Diagnosis: Irritable bowel disease[ICD9: 564.1] Melba Goldman MD, [facility] CPT- 4: 31769 08/01/2011 87966 EST. PATIENT, LEVEL III Diagnosis: ACUTE SINUSITIS[ICD9: 461.9] Diagnosis: Cough[ICD9: 786.2] Shahida Goldman MD, [facility] CPT-4: 99254 07/14/2011 10283 EST. PATIENT, LEVEL IV Diagnosis: VACCIN FOR INFLUENZA[ICD9: V04.81] Diagnosis: ESSENTIAL HYPERTENSION[SNOMED: 60644035] Diagnosis: GENERALIZED ANXIETY DISEASE[ICD9: 300.02] Diagnosis: SLEEP DISTURBANCES[ICD9: 780.50] Shahida Goldman MD, [facility] CPT- 4: 65774 05/23/2011 83199 EST. PATIENT, LEVEL III Diagnosis: ACUTE SINUSITIS[ICD9: 461.9] Diagnosis: ALLERGIC RHINITIS[ICD9: 477.9] Diagnosis: Cough[ICD9: 786.2] Shahida Goldman MD, [facility] CPT-4: 65439 05/03/2011 01506 EST. PATIENT, LEVEL IV Diagnosis: ESSENTIAL HYPERTENSION[SNOMED: 80795741] Diagnosis: DEPRESSIVE DISORDER NEC[ICD9: 311] Diagnosis: Fatigue[ICD9: 780.79] Shahida Goldman MD, [facility] CPT-4: 20405 04/25/2011 Plan of Care Planned Activity Notes Codes Status Date Visit Plan: Conjunctivitis - rx for eye drops/lube sent electronically to the patient's pharmacy. The patient has been instructed to cleanse affected eye with warm washcloth, then place medication into affected eye four times daily. 10/08/2018 Patient Education: Patient Medication Summary Completed 10/08/2018 Appointment: Isabelle Orozco: [phone] [facility] (15 min) Moderate 07/30/2018 Visit Plan: [...] acute concerns. 07/16/2018 Appointment: Isabelle Orozco WPtel: [facility] (15 min) Moderate 07/16/2018 Patient [...] of over-medication. 07/10/2018 Appointment: Shahida Manzo WPtel: [phone] [phone] [place] (15 min) Moderate 07/10/2018 Patient Education: Patient Medication Summary Completed 07/10/2018 Patient Education: Back Pain Completed 07/10/2018 Visit Plan: Sinusitis - Pt has acute infection - pain in face, maxillary region, Pt informed to use decongestant, RX given to patient, sinus rinses also recommended. Call if symptoms do not show improvement. 05/28/2018 Appointment: [phone] (30 min) Complex 05/28/2018 Patient Education: Patient [...] concerns. 02/07/2018 Appointment: Isabel[facility] Orozco [phone] [place] (15 min) Moderate 02/07/2018 Patient Education: Patient [...] less fatigue 01/19/2018 Appointment: Shahida Manzo WPtel: [facility]5 [phone] (15 min) Moderate 01/19/2018 Patient Education: [...] [phone] [place] [facility] - Annual Wellness Visit 11/23/2017 [...] [phone] [place] (15 min) Moderate 09/12/2017 Patient Education: Patient [...] spray. 07/25/2017 Appointment: Isabelle Orozco WPtel: [phone] [facility] (30 min) Complex 07/25/2017 Patient [...] available 06/27/2017 Appointment: Shahida Manzo WPtel: [phone] [phone] (15 min) Moderate 06/27/2017 Patient [...] improving. 05/08/2017 Appointment: Shahida Manzo WPtel: [phone] [phone] (15 min) Moderate 05/08/2017 Patient [...] Shahida Manzo WPtel: [facility]5 [phone] (15 min) Moderate 03/14/2017 Patient Education: Patient Medication Summary Completed 03/14/2017 Appointment: Shahida Manzo WPtel: [facility]5 [phone] (15 min) Moderate 02/21/2017 Visit [...] not improving. 02/20/2017 Appointment: Isabelle Orozco WPtel: [facility] (30 min) Complex 02/20/2017 Patient Education: Patient [...] use 02/06/2017 Appointment: Melba Goldman WPtel: [phone] [facility] (15 min) Moderate 02/06/2017 Patient Education: [...] Appointment: Melba Goldman WPtel: [phone] [facility] Surgical Procedure 12/05/2016 Patient Education: Patient Medication Summary Completed 12/05/2016 Visit Plan: Sinusitis - Pt has acute infection - pain in face, maxillary region, Pt informed to use decongestant, RX given to patient, sinus rinses also recommended. Call if symptoms do not show improvement. Dysuria- culture urine 11/28/2016 Appointment: Shahida Manzo WPtel: [phone] [phone] (15 min) Moderate 11/28/2016 Patient [...] of control. 11/07/2016 Appointment: Isabelle Orozco WPtel: [address] [place], [place] [phone] [facility] - Annual Wellness Visit 11/07/2016 [...] spray. 08/15/2016 Appointment: Isabelle Orozco WPtel: [phone] [facility] (15 min) Moderate 08/15/2016 Patient [...] use. 06/07/2016 Appointment: Shahida Manzo WPtel: [phone] [phone] (10 min) Simple 06/07/2016 Patient [...] today 03/14/2016 Appointment: Shahida Manzo [facility]el: [phone] (15 min) Moderate 03/14/2016 Patient Education: Patient Medication Summary Completed 03/14/2016 Care Plan: COMPLETE CBC AUTOMATED LOINC : 64065-6 Pending 03/14/2016 Visit Plan: Cellulitis - The patient was instructed in appropriate wound care. The patient was instructed to use the antibiotic ointment as per RX. The patient is to call for any change in symptoms, increase in size of the lesion, increase in pain. 02/22/2016 Appointment: Isabelle Orozco WPtel: [phone] [facility] (15 min) Moderate 02/22/2016 Patient Education: [...] pt to follow up with specialist at [place] [address] states - she needs to pursue treatment. Anxietly - medications unchanged. colonoscopy with dr. dai 11/24/2015 Appointment: [phone] (30 min) Complex 11/24/2015 Patient Education: Patient Medication Summary Completed 11/24/2015 Patient Education: Obesity Completed 11/24/2015 Patient Education: Hypertension Completed 11/24/2015 Patient Education: .Cervicalgia Neck Pain Completed 11/24/2015 Care Plan: Referral Order SNOMED-CT : [id number] Ordered 11/24/2015 Visit Plan: Acute Migraine - [...] monitor 06/11/2015 Appointment: Shahida Manzo WPtel: [phone] [place] (15 min) Moderate 06/11/2015 Patient Education: [...] OFFICE Sleep apnea-patient needs new CPAP-will contact [place] patient Pt reports that she uses her [...] OFFICE Sleep apnea-patient needs new CPAP-[place] [place] [facility] Pt reports that she uses her [...] OFFICE Sleep apnea-patient needs new CPAP-[facility] 03/19/2015 Appointment: (15 min) Moderate [...] Patient Medication Summary Completed 01/07/2015 Patient Education: [facility] [place] - Saving AutoInj - 18+ - Dynamic [...] areas dry Exposure to scabies-RX sent to [facility]. 03/07/2014 Appointment: [phone] [facility] [place] [facility] 03/07/2014 Patient Education: Patient [...] change in blood pressure readings at home. Knrbamt-qawfpayssft-amovsoki duragesic patch-appt with Dr Ortiz for pain management 11/21/2013 Appointment: Shahida Manzo WPtel: [facility]5 [phone] Follow up 11/21/2013 Patient Education: Patient Medication Summary Completed 11/21/2013 Patient Education: Hypertension Completed 11/21/2013 Patient Education: .Cervicalgia Neck Pain Completed 11/21/2013 Appointment: Melba Goldman WPtel: [facility]5 [facility] Other 11/19/2013 Appointment: Melba Goldman WPtel: [address] [place], [place] [phone] Follow up 11/06/2013 Appointment: Melba Goldman WPtel: [address] [place], [place] [id number] Lab Draw 10/15/2013 Patient Education: Patient Medication [...] Appointment: Shahida Manzo WPtel: [facility] Other 09/24/2013 Patient Education: Patient Medication Summary Completed 09/24/2013 Visit Plan: Paronychia/Cellulitis - continue with oral antibiotics as previously directed, return to clinic as previously directed, call for acute change in symptoms, worsening redness, warmth, discharge. 09/19/2013 Appointment: Melba Goldman WPtel: [facility] Other 09/19/2013 Patient Education: Patient Medication Summary Completed 09/19/2013 Visit Plan: Conjunctivitis - rx for eye drops/lube sent electronically to the patient's pharmacy. The patient has been instructed to cleanse affected eye with warm washcloth, then place medication into affected eye four times daily. Thrush-refill nystatin-call if symptoms do not resolve 08/05/2013 Appointment: Shahida Manzo WPtel: [facility]4 [phone] Sick 08/05/2013 Patient Education: Patient [...] show improvement. 06/03/2013 Appointment: Melba Goldman WPtel[facility] [facility] 06/03/2013 Patient Education: Patient Medication Summary Completed 06/03/2013 Patient Education: Hypertension Completed 06/03/2013 Appointment: [phone] [facility] [facility] 05/13/2013 Patient Education: Patient [...] of control. 05/07/2013 Appointment: Melba Goldman WPtel: [facility]5 [facility] Follow up 05/07/2013 Patient Education: Patient Medication Summary Completed 05/07/2013 Patient Education: Hypertension Completed 05/07/2013 Patient Education: Patient Medication Summary Completed 04/30/2013 Patient Education: Hypertension Completed 04/30/2013 Visit Plan: Arthritis- occasionally uncontrolled symptoms- recommend pt to take antiinflammatory as directed for pain control. Use tylenol for break through pain symptoms. 12/03/2012 Appointment: Melba Goldman WPtel: [address] [place], [place] [phone] Follow up 12/03/2012 Patient Education: Patient Medication [...] not resolve 09/24/2012 Appointment: Shahida Manzo WPtel: [address] [place], [place] [phone] [facility] 09/24/2012 Patient Education: Patient Medication Summary [...] with diflucan 09/10/2012 Appointment: Melba Goldman WPtel: [address] [place], [place] [phone] Follow up 09/10/2012 Patient Education: Patient Medication [...] symptoms. 08/08/2012 Appointment: [phone] [phone] Follow up 08/08/2012 Patient Education: Patient Medication Summary Completed 08/08/2012 Patient Education: Patient Medication Summary Completed 08/07/2012 Patient Education: Hypertension Completed 08/07/2012 Appointment: [phone] [facility] [facility] 02/16/2012 Patient [...] Melba Goldman WPtel: [facility]5 [facility] Other 02/15/2012 Patient Education: Patient Medication Summary Completed 02/15/2012 Visit Plan: Abdominal pain - ultrasound tomorrow AM nothing to eat before the ultrasound from 11pm tonight bland diet. Nausea - worse with fatty foods, recommended low fat/bland diet, call if symptoms worsening. 11/10/2011 Appointment: Melba Goldman WPtel: [facility] [address] Other 11/10/2011 Patient Education: Patient Medication [...] Appointment: Melba Goldman WPtel: [facility] Other 08/01/2011 Patient Education: Patient [...] Shahida Manzo WPtel: [facility]1 [address] Other 07/14/2011 Patient Education: Patient Medication [...] office. 05/23/2011 Appointment: Shahida Manzo WPtel: [facility] [address] Other 05/23/2011 Patient Education: Patient Medication [...] cough med 05/03/2011 Appointment: Shahida Manzo WPtel: [address] [place], [place] [phone] [facility] 05/03/2011 Patient Education: Patient Medication Summary Completed [...] symptoms. 04/25/2011 Appointment: [facility]el[phone] [phone] Other 04/25/2011 Patient Education: Patient Medication Summary [...] OFFICE Sleep apnea-patient needs new CPAP-[place] [facility] [place] [facility] Pt reports that she uses her [...] OFFICE Sleep apnea-patient needs new CPAP-[facility] Pt reports that she uses [...] OFFICE Sleep apnea-patient needs new CPAP-will contact [facility] patient . Sinusitis - Pt has acute [...] areas dry Exposure to scabies-RX sent to [facility]. rocephin/kenalog . Sinusitis - Pt [...] change in blood pressure readings at home. Yfknear-baaezibmbbo-tcjqcfjn duragesic patch-appt with Dr Ortiz for pain [...]
--- OUTSIDE RECORDS SUMMARY | 2019-03-08 16:54 | XMS REPORT | CCD ---
Author Author [facility] Address [address] [place] [address] Phone Care Team Providers Care [employer] Name Role Phone PP Unavailable CCM Unavailable Summary Purpose Interface Exchange Insurance Providers Payer name Policy type / Coverage type Covered democrat ID Effective Begin Date Effective End Date [employer] Medicare Part B [id number] Unknown Family history Son Diagnosis Age At Onset Crohn's disease Unknown Brother Diagnosis Age At Onset Cardiovascular disease Unknown Mother Diagnosis Age At Onset Hypertension Unknown Father Diagnosis Age At Onset Cardiovascular disease Unknown Social History Social History Element Codes Description Effective Dates Marital status Unknown 04/22/2011 Number of children Unknown 3 1 son -Crohns 04/22/[address]: 919775115 Nonsmoker 04/22/2011 Allergies, Adverse Reactions, Alerts Substance [...] ICD-9: 780.57 ICD-10: G47.33 Active 01/19/2018 Unknown Other allergic rhinitis ICD-9: 477.8 ICD-10: J30.89 Active 08/14/2016 Unknown Primary generalized (osteo)arthritis ICD-9: 715.09 ICD-10: [...] (pediatric) ICD-9: 780.57 ICD-10: G47.33 01/19/2018 Active Other allergic rhinitis ICD-9: 477.8 ICD-10: J30.89 08/14/2016 Active Primary generalized (osteo)arthritis ICD-9: 715.09 ICD-10: [...] hydrocodone 10 mg-acetaminophen 325 mg tablet RxNorm: 457194 Tablet(s) PO TAKE ONE TO TWO TABLETS BY MOUTH EVERY 6 HOURS NEEDED FOR PAIN 09/11/2018 09/25/2018 Active piroxicam 20 mg capsule RxNorm: 596657 TAKE ONE CAPSULE BY MOUTH DAILY 08/09/2018 01/05/2019 Active trazodone 50 mg tablet RxNorm: 540819 TAKE ONE AND ONE-HALF (1 1/2) TABLET BY MOUTH AT BEDTIME. MAY INCREASE TO 2 TABLETS AT BEDTIME NEEDED 08/02/2018 11/19/2018 Active Nexium 40 mg capsule,delayed release RxNorm: 716089 TAKE ONE CAPSULE BY MOUTH TWICE A DAY 07/23/2018 11/19/2018 Active Bystolic 5 mg tablet RxNorm: 416155 1 Tablet(s) PO daily to take with 10 mg daily to equal 15mg daily 07/17/2018 No Stop Date Active alprazolam 0.25 mg tablet RxNorm: 495802 1 Tablet(s) PO TID as needed 07/16/2018 10/13/2018 Active hydrocodone 10 mg-acetaminophen 325 mg tablet RxNorm: 161201 Tablet(s) PO TAKE ONE TO TWO TABLETS BY MOUTH EVERY 6 HOURS NEEDED FOR PAIN 07/10/2018 07/24/2018 Inactive prednisone 20 mg tablet RxNorm: 140674 1 Tablet(s) PO BID 07/10/2018 07/14/2018 Inactive Phenergan with Codeine Syrup RxNorm: 5-10 Milliliter(s) PO Q6 PRN 06/28/2018 No Stop Date Active prednisone 20 mg tablet RxNorm: 445344 2 Tablet(s) PO daily 05/31/2018 06/04/2018 Inactive prednisone 20 mg tablet RxNorm: 755996 2 Tablet(s) PO daily 05/31/2018 05/30/2018 Inactive ceftriaxone 500 mg solution for injection RxNorm: 4018691 Inj 05/28/2018 05/28/2018 Inactive doxycycline hyclate 100 mg tablet RxNorm: 9473366 1 Tablet(s) PO BID 05/28/2018 06/06/2018 Inactive Kenalog 40 mg/mL suspension for injection RxNorm: 2885095 Milliliter(s) Inj 05/28/2018 05/28/2018 Inactive hydrocodone 10 mg-acetaminophen 325 mg tablet RxNorm: 168425 Tablet(s) PO TAKE ONE TO TWO TABLETS BY MOUTH EVERY 6 HOURS NEEDED FOR PAIN 05/09/2018 05/23/2018 Inactive alprazolam 0.25 mg tablet RxNorm: 502780 1 Tablet(s) PO daily as needed 04/25/2018 07/15/2018 Inactive Bystolic 10 mg tablet RxNorm: 252922 TAKE ONE TABLET BY MOUTH DAILY 04/16/2018 09/12/2018 Active hydrocodone 10 mg-acetaminophen 325 mg tablet RxNorm: 670591 Tablet(s) PO TAKE ONE TO TWO TABLETS BY MOUTH EVERY 6 HOURS NEEDED FOR PAIN 03/06/2018 03/20/2018 Inactive trazodone 50 mg tablet RxNorm: 610806 TAKE ONE AND ONE-HALF (1 1/2) TABLET BY MOUTH AT BEDTIME. MAY INCREASE TO 2 TABLETS AT BEDTIME NEEDED 02/23/2018 06/12/2018 Inactive mupirocin 2 % topical ointment RxNorm: 536787 1 TOP BID 02/09/2018 05/27/2018 Inactive Zofran 4 mg tablet RxNorm: 360813 1 Tablet(s) PO TID as needed 02/08/2018 No Stop Date Active Keflex 500 mg capsule RxNorm: 520233 1 Capsule(s) PO TID 02/07/2018 02/13/2018 Inactive alprazolam 0.25 mg tablet RxNorm: 618919 1 Tablet(s) PO daily as needed 01/24/2018 07/09/2018 Inactive hydrocodone 10 mg-acetaminophen 325 mg tablet RxNorm: 475364 Tablet(s) PO TAKE ONE TO TWO TABLETS BY MOUTH EVERY 6 HOURS NEEDED FOR PAIN 01/19/2018 02/02/2018 Inactive hydrochlorothiazide 25 mg tablet RxNorm: 028187 Tablet(s) TAKE ONE TABLET BY MOUTH DAILY 01/19/2018 01/19/2018 Inactive Kenalog 40 mg/mL suspension for injection RxNorm: 2263606 1 Milliliter(s) Inj 01/19/2018 01/19/2018 Inactive piroxicam 20 mg capsule RxNorm: 353728 1 Capsule(s) PO daily 01/19/2018 07/17/2018 Inactive D/C ORDER FOR HCTZ ceftriaxone 500 mg solution for injection RxNorm: 2225802 500 Milligram(s) Inj 01/19/2018 01/19/2018 Inactive Nexium 40 mg capsule,delayed release RxNorm: 550917 TAKE ONE CAPSULE BY MOUTH TWICE A DAY 01/18/2018 04/17/2018 Inactive Nexium 40 mg capsule,delayed release RxNorm: 474508 TAKE ONE CAPSULE BY MOUTH TWICE A DAY 01/15/2018 04/14/2018 Inactive ciprofloxacin 0.3 % eye drops RxNorm: 966112 2 Drop(s) ophthalmic (eye) Q2H while awake x 2 days, then Q4H x 5 days 11/23/2017 05/27/2018 Inactive Keflex 500 mg capsule RxNorm: 728595 1 Capsule(s) PO TID 11/23/2017 11/29/2017 Inactive hydrocodone 10 mg-acetaminophen 325 mg tablet RxNorm: 158737 Tablet(s) PO TAKE ONE TO TWO TABLETS BY MOUTH EVERY 6 HOURS NEEDED FOR PAIN 10/30/2017 11/13/2017 Inactive Augmentin 500 mg-125 mg tablet RxNorm: 368329 1 Tablet(s) PO TID 10/27/2017 11/05/2017 Inactive alprazolam 0.25 mg tablet RxNorm: 523969 1 Tablet(s) PO daily as needed 10/26/2017 04/24/2018 Inactive trazodone 50 mg tablet RxNorm: 137720 TAKE ONE AND ONE-HALF (1 1/2) TABLET BY MOUTH AT BEDTIME. MAY INCREASE TO 2 TABLETS AT BEDTIME NEEDED 09/25/2017 02/03/2018 Inactive Lexapro 20 mg tablet RxNorm: 816915 TAKE ONE AND ONE-HALF TABLET BY MOUTH DAILY 09/15/2017 09/09/2018 Inactive Flagyl 500 mg tablet RxNorm: 540615 1 Tablet(s) PO TID 09/12/2017 09/21/2017 Inactive promethazine 25 mg tablet RxNorm: 328356 1 Tablet(s) PO TID as needed nausea and vomitting THIS WILL MAKE YOU SLEEPY 09/12/2017 11/08/2017 Inactive Keflex 500 mg capsule RxNorm: 723519 1 Capsule(s) PO QID 08/25/2017 08/31/2017 Inactive [SAVINGS FOR UNINSURED PATIENTS -- BIN:[id number], PCN: [id number], Group: [id number], ID# [id number], Process claim through [employer] ( [employer] ), for questions: . THIS IS NOT INSURANCE.] alprazolam 0.25 mg tablet RxNorm: 456905 1 Tablet(s) PO daily as needed 07/31/2017 04/24/2018 Inactive prednisone 20 mg tablet RxNorm: 131812 2 Tablet(s) PO daily 07/25/2017 07/29/2017 Inactive Augmentin 500 mg-125 mg tablet RxNorm: 117395 1 Tablet(s) PO TID 07/25/2017 08/03/2017 Inactive trazodone 50 mg tablet RxNorm: 664238 TAKE ONE AND ONE-HALF (1 1/2) TABLET BY MOUTH AT BEDTIME. MAY INCREASE TO 2 TABLETS AT BEDTIME NEEDED 06/30/2017 09/03/2017 Inactive Bystolic 10 mg tablet RxNorm: 781260 TAKE ONE TABLET BY MOUTH DAILY 06/30/2017 2017 Inactive hydrochlorothiazide 25 mg tablet RxNorm: 674225 TAKE ONE TABLET BY MOUTH DAILY 06/30/2017 01/18/2018 Inactive Flagyl 500 mg tablet RxNorm: 820280 1 Tablet(s) PO TID 06/27/2017 07/03/2017 Inactive Phenergan with Codeine Syrup RxNorm: 5-10 Milliliter(s) PO Q6 PRN 06/27/2017 11/15/2017 Inactive Levaquin 500 mg tablet RxNorm: 182429 1 Tablet(s) PO daily 06/27/2017 07/03/2017 Inactive Kenalog 40 mg/mL suspension for injection RxNorm: 5963344 1 Milliliter(s) Inj 06/27/2017 06/27/2017 Inactive Nexium 40 mg capsule,delayed release RxNorm: 820616 1 Capsule(s) PO BID TAKE ONE CAPSULE BY MOUTH BID 05/22/2017 09/18/2017 Inactive Nexium 40 mg capsule,delayed release RxNorm: 933928 1 Capsule(s) PO BID TAKE ONE CAPSULE BY MOUTH BID 05/22/2017 05/21/2017 Inactive hydrocodone 10 mg-acetaminophen 325 mg tablet RxNorm: 936519 Tablet(s) PO TAKE ONE TO TWO TABLETS BY MOUTH EVERY 6 HOURS NEEDED FOR PAIN 05/17/2017 06/15/2017 Inactive Nexium 40 mg capsule,delayed release RxNorm: 209454 Capsule(s) TAKE ONE CAPSULE BY MOUTH BID 05/17/2017 05/21/2017 Inactive alprazolam 0.25 mg tablet RxNorm: 435570 1 Tablet(s) PO daily as needed 05/03/2017 07/01/2017 Inactive Levaquin 500 mg tablet RxNorm: 984297 1 Tablet(s) PO daily 04/20/2017 04/26/2017 Inactive clotrimazole 1 % topical cream RxNorm: 640852 1 Application TOP BID 04/20/2017 11/07/2017 Inactive Kenalog 40 mg/mL suspension for injection RxNorm: 4112624 Milliliter(s) Inj 04/20/2017 04/20/2017 Inactive nystatin 100,000 unit/gram topical powder RxNorm: 129427 1 Gram(s) APPLY TOPICALLY TWO TIMES A DAY 04/10/2017 07/08/2017 Inactive trazodone 50 mg tablet RxNorm: 682509 TAKE ONE AND ONE-HALF (1 1/2) TABLET BY MOUTH AT BEDTIME. MAY INCREASE TO 2 TABLETS AT BEDTIME NEEDED 03/28/2017 06/23/2017 Inactive Augmentin 875 mg-125 mg tablet RxNorm: 346323 1 Tablet(s) PO BID 03/14/2017 03/20/2017 Inactive Kenalog 40 mg/mL suspension for injection RxNorm: 8905151 1 Milliliter(s) Inj 03/14/2017 03/14/2017 Inactive Lexapro 20 mg tablet RxNorm: 291684 1.5 Tablet(s) PO daily 03/08/2017 03/07/2017 Inactive Lexapro 20 mg tablet RxNorm: 335024 1.5 Tablet(s) PO daily 03/08/2017 07/05/2017 Inactive alprazolam 0.25 mg tablet RxNorm: 220459 1 Tablet(s) PO daily as needed 02/23/2017 04/23/2017 Inactive (Response to an electronic controlled substance refill request - RxReferenceNumber: [id number]) Flagyl 500 mg tablet RxNorm: 203589 1 Tablet(s) PO TID 02/20/2017 03/01/2017 Inactive promethazine 25 mg tablet RxNorm: 942942 1 Tablet(s) PO TID as needed nausea 02/20/2017 03/01/2017 Inactive Cipro 500 mg tablet RxNorm: 224862 1 Tablet(s) PO BID 02/20/2017 03/01/2017 Inactive Flagyl 500 mg tablet RxNorm: 594501 1 Tablet(s) PO TID 02/09/2017 02/15/2017 Inactive Trintellix 10 mg tablet RxNorm: 3361132 1 Tablet(s) PO QAM 02/06/2017 03/07/2017 Inactive Efudex 5 % topical cream RxNorm: 706552 1 Application TOP BID use on skin spot on nose 02/06/2017 02/15/2017 Inactive Bystolic 10 mg tablet RxNorm: 258072 TAKE ONE TABLET BY MOUTH DAILY 02/03/2017 06/02/2017 Inactive Imitrex 50 mg tablet RxNorm: 755340 TAKE ONE TABLET BY MOUTH EVERY 8 HOURS NEEDED MAY REPEAT IN 1 HOUR OF INITIAL DOSE. DISCONTINUE FIORICET 12/22/2016 02/19/2017 Inactive Nexium 40 mg capsule,delayed release RxNorm: 440538 TAKE ONE CAPSULE BY MOUTH EVERY DAY 12/21/2016 05/16/2017 Inactive Lexapro 20 mg tablet RxNorm: 167123 Tablet(s) TAKE ONE TABLET BY MOUTH DAILY 12/05/2016 02/05/2017 Inactive Augmentin 875 mg-125 mg tablet RxNorm: 417229 1 Tablet(s) PO BID 11/28/2016 12/04/2016 Inactive ceftriaxone 500 mg solution for injection RxNorm: 1111949 1 Milliliter(s) Inj 11/28/2016 11/28/2016 Inactive hydrocodone 10 mg-acetaminophen 325 mg tablet RxNorm: 833808 Tablet(s) PO TAKE ONE TO TWO TABLETS BY MOUTH EVERY 6 HOURS NEEDED FOR PAIN 11/28/2016 05/16/2017 Inactive (Appended: Controlled substance eRx refill - RxReferenceNumber: [id number]) prednisone 20 mg tablet RxNorm: 828641 2 Tablet(s) PO daily 11/28/2016 12/02/2016 Inactive Synthroid 100 mcg tablet RxNorm: 075816 1 Tablet(s) PO daily 11/21/2016 05/19/2017 Inactive Brand name only! trazodone 50 mg tablet RxNorm: 363343 Tablet(s) TAKE 1 AND 1/2 TABLETS EVERY NIGHT AT BEDTIME , MAY INCREASE TO 2 TABLETS AT BEDTIME NEEDED 11/21/2016 11/20/2016 Inactive trazodone 50 mg tablet RxNorm: 273233 TAKE 1 AND 1/2 TABLETS EVERY NIGHT AT BEDTIME , MAY INCREASE TO 2 TABLETS AT BEDTIME NEEDED 11/21/2016 08/01/2018 Inactive Synthroid 100 mcg tablet RxNorm: 353028 1 Tablet(s) PO daily TAKE ONE TABLET BY MOUTH DAILY 11/08/2016 11/20/2016 Inactive ceftriaxone 500 mg solution for injection RxNorm: 1760262 Inj 11/07/2016 11/07/2016 Inactive Kenalog 40 mg/mL suspension for injection RxNorm: 8764323 Milliliter(s) Inj 11/07/2016 11/07/2016 Inactive Xanax 0.25 mg tablet RxNorm: 521456 1 Tablet(s) PO daily as needed 10/31/2016 05/02/2017 Inactive alprazolam 0.25 mg tablet RxNorm: 255207 1 Tablet(s) PO daily as needed 10/21/2016 12/18/2016 Inactive (Response to an electronic controlled substance refill request - RxReferenceNumber: [id number]) hydrochlorothiazide 25 mg tablet RxNorm: 878791 TAKE ONE TABLET BY MOUTH DAILY 10/11/2016 04/08/2017 Inactive Xanax 0.25 mg tablet RxNorm: 920346 1 Tablet(s) PO daily as needed 08/23/2016 10/19/2016 Inactive Flonase Allergy Relief 50 mcg/actuation nasal spray,suspension RxNorm: 9093559 1 [place] NASAL daily 08/15/2016 No Stop Date Active amoxicillin 500 mg capsule RxNorm: 335523 1 Capsule(s) PO TID 08/15/2016 08/24/2016 Inactive Bystolic 10 mg tablet RxNorm: 321785 TAKE ONE TABLET BY MOUTH DAILY 08/01/2016 12/28/2016 Inactive trazodone 50 mg tablet RxNorm: 158729 TAKE 1 AND 1/2 TABLETS EVERY NIGHT AT BEDTIME , MAY INCREASE TO 2 TABLETS AT BEDTIME NEEDED 07/25/2016 11/11/2016 Inactive alprazolam 0.25 mg tablet RxNorm: 048271 1 Tablet(s) PO daily as needed 07/25/2016 08/22/2016 Inactive (Response to an electronic controlled substance refill request - RxReferenceNumber: [id number]) Imitrex 50 mg tablet RxNorm: 250162 1 Tablet(s) PO Q8 as needed may repeat x1 dose in 1 hour of inital dose. 07/13/2016 No Stop Date Active Lexapro 20 mg tablet RxNorm: 643420 TAKE 1/2 TABLET BY MOUTH DAILY FOR 10 DAYS, THEN TAKE ONE TABLET BY MOUTH DAILY 06/27/2016 11/23/2016 Inactive Synthroid 100 mcg tablet RxNorm: 554969 TAKE ONE TABLET BY MOUTH DAILY 06/20/2016 11/07/2016 Inactive Augmentin 500 mg-125 mg tablet RxNorm: 951922 1 Tablet(s) PO TID 06/07/2016 06/13/2016 Inactive hydrocodone 10 mg-acetaminophen 325 mg tablet RxNorm: 120903 Tablet(s) PO TAKE ONE TO TWO TABLETS BY MOUTH EVERY 6 HOURS NEEDED FOR PAIN 06/07/2016 11/27/2016 Inactive (Appended: Controlled substance eRx refill - RxReferenceNumber: [id number]) hydrochlorothiazide 25 mg tablet RxNorm: 101639 TAKE ONE TABLET BY MOUTH DAILY 03/14/2016 09/09/2016 Inactive Edarbi 40 mg tablet RxNorm: 6925294 1 Tablet(s) PO daily 03/14/2016 06/06/2016 Inactive trazodone 50 mg tablet RxNorm: 949989 Tablet(s) TAKE 1 AND 1/2 TABLET AT BEDTIME. MAY INCREASE TO 2 TABLETS IF NECESSARY 02/25/2016 07/05/2016 Inactive Imitrex 50 mg tablet RxNorm: 596085 1 Tablet(s) PO Q8 as needed may repeat x1 dose in 1 hour of inital dose. 02/25/2016 07/12/2016 Inactive dc fioricet Xanax 0.25 mg tablet RxNorm: 627730 1 Tablet(s) PO daily as needed 02/24/2016 07/21/2016 Inactive mupirocin 2 % topical ointment RxNorm: 274817 1 TOP BID 02/22/2016 11/08/2017 Inactive Bactrim DS 800 mg-160 mg tablet RxNorm: 904192 1 Tablet(s) PO BID 02/22/2016 03/02/2016 Inactive Fioricet 50 mg-325 mg-40 mg tablet RxNorm: 857455 Tablet(s) TAKE ONE TABLET BY MOUTH EVERY 4 HOURS NEEDED FOR headache 02/12/2016 02/24/2016 Inactive (Response to an electronic controlled substance refill request - RxReferenceNumber: [id number]) Fioricet 50 mg-325 mg-40 mg tablet RxNorm: 165279 Tablet(s) TAKE ONE TABLET BY MOUTH EVERY 4 HOURS NEEDED FOR headache 02/12/2016 02/11/2016 Inactive (Response to an electronic controlled substance refill request - RxReferenceNumber: [id number]) Nexium 40 mg capsule,delayed release RxNorm: 913803 TAKE ONE CAPSULE BY MOUTH EVERY DAY 02/01/2016 10/27/2016 Inactive Bystolic 10 mg tablet RxNorm: 104761 Tablet(s) TAKE ONE TABLET BY MOUTH DAILY 01/06/2016 07/03/2016 Inactive Xanax 0.25 mg tablet RxNorm: 954059 1 Tablet(s) PO daily as needed 12/28/2015 02/23/2016 Inactive Levaquin 500 mg tablet RxNorm: 256995 1 Tablet(s) PO daily take a probiotic daily 12/14/2015 02/11/2016 Inactive Levaquin 500 mg tablet RxNorm: 121105 1 Tablet(s) PO daily take a probiotic daily 12/14/2015 12/13/2015 Inactive prednisone 20 mg tablet RxNorm: 434725 1 Tablet(s) PO BID 12/07/2015 12/13/2015 Inactive Augmentin 875 mg-125 mg tablet RxNorm: 151999 1 Tablet(s) PO BID 12/07/2015 12/13/2015 Inactive ceftriaxone 500 mg solution for injection RxNorm: 7587824 Inj 12/07/2015 12/07/2015 Inactive Phenergan with Codeine Syrup RxNorm: 5-10 Milliliter(s) PO Q6 PRN 12/07/2015 06/26/2017 Inactive alprazolam 0.25 mg tablet RxNorm: 568119 1 Tablet(s) PO daily as needed 11/27/2015 12/25/2015 Inactive (Response to an electronic controlled substance refill request - RxReferenceNumber: [id number]) trazodone 50 mg tablet RxNorm: 122349 TAKE 1 AND 1/2 TABLET AT BEDTIME FOR 2 WEEKS, MAY INCREASE TO 2 TABLETS IF NECESSARY AFTER THAT 11/26/2015 02/24/2016 Inactive ceftriaxone 500 mg solution for injection RxNorm: 7720249 Milliliter(s) Inj 11/24/2015 11/24/2015 Inactive prednisone 10 mg tablet RxNorm: 571569 3 Tablet(s) PO daily 11/24/2015 11/28/2015 Inactive cefdinir 300 mg capsule RxNorm: 280236 1 Capsule(s) PO BID 11/24/2015 11/30/2015 Inactive Kenalog 40 mg/mL suspension for injection RxNorm: 3787631 1 Milliliter(s) Inj 11/24/2015 11/24/2015 Inactive Lexapro 20 mg tablet RxNorm: 067350 TAKE 1/2 TABLET BY MOUTH DAILY FOR 10 DAYS, THEN TAKE ONE TABLET BY MOUTH DAILY 11/23/2015 05/20/2016 Inactive Lipitor 10 mg tablet RxNorm: 604042 Tablet(s) TAKE ONE TABLET BY MOUTH EVERY DAY 10/26/2015 11/06/2016 Inactive Norvasc 10 mg tablet RxNorm: 964326 Tablet(s) PO TAKE ONE TABLET BY MOUTH EVERY DAY 10/26/2015 01/18/2018 Inactive hydrochlorothiazide 25 mg tablet RxNorm: 286294 TAKE ONE TABLET BY MOUTH DAILY 10/20/2015 01/17/2016 Inactive promethazine 25 mg/mL injection solution RxNorm: 227102 Milliliter(s) Inj 08/27/2015 08/27/2015 Inactive ketorolac 60 mg/2 mL intramuscular solution RxNorm: 560827 Milliliter(s) IM 08/27/2015 08/27/2015 Inactive alprazolam 0.25 mg tablet RxNorm: 785589 1 Tablet(s) PO daily as needed 08/27/2015 10/25/2017 Inactive (Response to an electronic controlled substance refill request - RxReferenceNumber: [id number]) Lexapro 20 mg tablet RxNorm: 431363 TAKE 1/2 TABLET BY MOUTH DAILY FOR 10 DAYS, THEN TAKE ONE TABLET BY MOUTH DAILY 08/13/2015 11/10/2015 Inactive Flonase 50 mcg/actuation nasal spray,suspension RxNorm: 747555 PLACE 1 SPRAY IN EACH NOSTRIL DAILY 08/13/2015 02/08/2016 Inactive Augmentin 500 mg-125 mg tablet RxNorm: 574516 1 Tablet(s) PO TID 08/10/2015 08/16/2015 Inactive Kenalog 40 mg/mL suspension for injection RxNorm: 3580757 Milliliter(s) Inj 08/10/2015 08/10/2015 Inactive ceftriaxone 500 mg solution for injection RxNorm: 7403459 Inj 08/10/2015 08/10/2015 Inactive nystatin 100,000 unit/mL oral suspension RxNorm: 662506 4 Milliliter(s) PO QID 08/10/2015 08/16/2015 Inactive trazodone 50 mg tablet RxNorm: 118730 TAKE 1 AND 1/2 TABLET AT BEDTIME FOR 2 WEEKS, MAY INCREASE TO 2 TABLETS IF NECESSARY AFTER THAT 07/31/2015 11/25/2015 Inactive ceftriaxone 500 mg solution for injection RxNorm: 9767194 1 Milliliter(s) Inj 07/28/2015 07/28/2015 Inactive Bactrim DS 800 mg-160 mg tablet RxNorm: 432011 1 Tablet(s) PO BID 07/28/2015 08/06/2015 Inactive Bactroban 2 % topical ointment RxNorm: 248187 1 Application TOP BID 07/28/2015 08/06/2015 Inactive Diflucan 150 mg tablet RxNorm: 534376 1 Tablet(s) PO daily 06/11/2015 06/17/2015 Inactive clotrimazole 1 % topical cream RxNorm: 759983 1 Application TOP BID 06/11/2015 07/10/2015 Inactive Bystolic 10 mg tablet RxNorm: 777204 TAKE ONE TABLET BY MOUTH DAILY 06/08/2015 12/04/2015 Inactive alprazolam 0.25 mg tablet RxNorm: 818894 1 Tablet(s) PO daily as needed 06/01/2015 08/25/2015 Inactive (Response to an electronic controlled substance refill request - RxReferenceNumber: [id number]) Fioricet 50 mg-325 mg-40 mg tablet RxNorm: 076634 Tablet(s) TAKE ONE TABLET BY MOUTH EVERY 4 HOURS NEEDED FOR headache 05/28/2015 06/08/2015 Inactive (Response to an electronic controlled substance refill request - RxReferenceNumber: [id number]) trazodone 50 mg tablet RxNorm: 223553 TAKE 1 AND 1/2 TABLET AT BEDTIME FOR 2 WEEKS, MAY INCREASE TO 2 TABLETS IF NECESSARY AFTER THAT 05/25/2015 08/22/2015 Inactive trazodone 50 mg tablet RxNorm: 926950 TAKE 1 AND 1/2 TABLET AT BEDTIME FOR 2 WEEKS, MAY INCREASE TO 2 TABLETS IF NECESSARY AFTER THAT 05/25/2015 05/24/2015 Inactive Synthroid 100 mcg tablet RxNorm: 898482 TAKE ONE TABLET BY MOUTH DAILY 04/23/2015 01/17/2016 Inactive Lipitor 10 mg tablet RxNorm: 189262 TAKE ONE TABLET BY MOUTH EVERY DAY 04/23/2015 10/25/2015 Inactive Kenalog 40 mg/mL suspension for injection RxNorm: 1710238 Milliliter(s) Inj 03/19/2015 03/19/2015 Inactive Lexapro 20 mg tablet RxNorm: 829492 1 Tablet(s) PO daily 03/19/2015 07/16/2015 Inactive 1/2 tab daily x 10 days then 1 tab daily hydrocodone 10 mg-acetaminophen 325 mg tablet RxNorm: 827614 Tablet(s) PO TAKE ONE TO TWO TABLETS BY MOUTH EVERY 6 HOURS NEEDED FOR PAIN 03/19/2015 06/06/2016 Inactive (Appended: Controlled substance eRx refill - RxReferenceNumber: [id number]) Carafate 1 gram tablet RxNorm: 482669 1 Tablet(s) PO AC & HS 03/19/2015 06/16/2015 Inactive dissolve in water and take as a slurry hydrochlorothiazide 25 mg tablet RxNorm: 943523 1 Tablet(s) PO daily 03/12/2015 09/07/2015 Inactive Nexium 40 mg capsule,delayed release RxNorm: 995288 TAKE ONE CAPSULE BY MOUTH EVERY DAY 02/26/2015 12/22/2015 Inactive Cymbalta 60 mg capsule,delayed release RxNorm: 417075 TAKE ONE CAPSULE BY MOUTH TWICE A DAY 02/23/2015 03/18/2015 Inactive alprazolam 0.25 mg tablet RxNorm: 748280 1 Tablet(s) PO daily as needed 02/11/2015 05/10/2015 Inactive (Response to an electronic controlled substance refill request - RxReferenceNumber: [id number]) trazodone 50 mg tablet RxNorm: 285390 TAKE 1 AND 1/2 TABLET AT BEDTIME FOR 2 WEEKS, MAY INCREASE TO 2 TABLETS IF NECESSARY AFTER THAT 01/27/2015 05/24/2015 Inactive Augmentin 500 mg-125 mg tablet RxNorm: 904220 1 Tablet(s) PO TID 01/07/2015 01/13/2015 Inactive gentamicin 0.3 % eye drops RxNorm: 955316 3 Drop(s) OPH QID 01/07/2015 01/13/2015 Inactive [AttnRPh: Saving apply/adjudicate RxGRP:[id number] RxBIN:[id number] RxPCN: ID#:[id number]] scopolamine 1.5 mg transdermal 72 hour patch RxNorm: 558348 1 Patch TD q72 hours 01/07/2015 11/23/2015 Inactive Synthroid 100 mcg tablet RxNorm: 144639 TAKE ONE TABLET BY MOUTH ONCE A DAY 01/06/2015 04/22/2015 Inactive nystatin 100,000 unit/gram topical powder RxNorm: 889339 APPLY TOPICALLY TWO TIMES A DAY 12/18/2014 03/17/2015 Inactive alprazolam 0.25 mg tablet RxNorm: 057671 TAKE ONE TABLET BY MOUTH DAILY NEEDED 10/30/2014 11/28/2014 Inactive (Response to an electronic controlled substance refill request - RxReferenceNumber: [id number]) alprazolam 0.25 mg tablet RxNorm: 815497 Tablet(s) TAKE ONE TABLET BY MOUTH DAILY 10/30/2014 10/29/2014 Inactive (Response to an electronic controlled substance refill request - RxReferenceNumber: [id number]) Lipitor 10 mg tablet RxNorm: 076033 TAKE ONE TABLET BY MOUTH EVERY DAY 10/30/2014 02/26/2015 Inactive alprazolam 0.25 mg tablet RxNorm: 968457 TAKE ONE TABLET BY MOUTH DAILY 10/07/2014 10/29/2014 Inactive (Response to an electronic controlled substance refill request - RxReferenceNumber: [id number]) alprazolam 0.25 mg tablet RxNorm: 444912 TAKE ONE TABLET BY MOUTH DAILY 10/06/2014 10/07/2014 Inactive (Response to an electronic controlled substance refill request - RxReferenceNumber: [id number]) alprazolam 0.25 mg tablet RxNorm: 647835 Tablet(s) TAKE ONE TABLET BY MOUTH EVERY DAY NEEDED 09/30/2014 10/06/2014 Inactive (Response to an electronic controlled substance refill request - RxReferenceNumber: [id number]) Fioricet 50 mg-325 mg-40 mg tablet RxNorm: 740305 Tablet(s) TAKE ONE TABLET BY MOUTH EVERY 4 HOURS NEEDED FOR headache 09/29/2014 10/12/2014 Inactive (Response to an electronic controlled substance refill request - RxReferenceNumber: [id number]) Bystolic 10 mg tablet RxNorm: 248084 1 Tablet(s) PO daily TAKE ONE TABLET BY MOUTH EVERY DAY 09/29/2014 04/26/2015 Inactive Bystolic 5 mg tablet RxNorm: 734579 TAKE 1 AND 1/2 TABLETS ONCE DAILY 09/24/2014 09/23/2014 Inactive Bystolic 5 mg tablet RxNorm: 516928 Tablet(s) TAKE 1 AND 1/2 TABLETS ONCE DAILY 09/24/2014 09/18/2015 Inactive gentamicin 0.3 % eye drops RxNorm: 869577 3 Drop(s) OPH QID 09/23/2014 09/29/2014 Inactive trazodone 50 mg tablet RxNorm: 403365 TAKE 1 AND 1/2 TABLET AT BEDTIME FOR 2 WEEKS, MAY INCREASE TO 2 TABLETS IF NECESSARY AFTER THAT 09/22/2014 01/26/2015 Inactive Fioricet 50 mg-325 mg-40 mg tablet RxNorm: 333513 TAKE ONE TABLET BY MOUTH EVERY 4 HOURS NEEDED FOR PAIN 09/17/2014 09/28/2014 Inactive (Response to an electronic controlled substance refill request - RxReferenceNumber: [id number]) Duragesic 50 mcg/hr transdermal patch RxNorm: 834979 1 TD q72 hours 08/07/2014 01/06/2015 Inactive [SAVINGS FOR UNINSURED PATIENTS -- BIN:741166, PCN: ASPROD1, Group: [id number], ID# [id number], Process claim through [employer], for questions: . THIS IS NOT INSURANCE.] alprazolam 0.25 mg tablet RxNorm: 802965 TAKE ONE TABLET BY MOUTH EVERY DAY NEEDED 07/31/2014 08/29/2014 Inactive (Response to an electronic controlled substance refill request - RxReferenceNumber: [id number]) alprazolam 0.25 mg tablet RxNorm: 857878 1 Tablet(s) PO daily as needed TAKE ONE TABLET BY MOUTH EVERY DAY NEEDED 07/30/2014 08/01/2014 Inactive (Response to an electronic controlled substance refill request - RxReferenceNumber: [id number]) Diflucan 150 mg tablet RxNorm: 340872 1 Tablet(s) PO daily 06/25/2014 07/01/2014 Inactive [SAVINGS FOR UNINSURED PATIENTS -- BIN:[id number], PCN: ASPROD1, Group: [id number], ID# [id number], Process claim through [employer], for questions: . THIS IS NOT INSURANCE.] Kenalog 40 mg/mL suspension for injection RxNorm: 7832066 Milliliter(s) Inj 06/23/2014 06/23/2014 Inactive [SAVINGS FOR UNINSURED PATIENTS -- BIN:[id number], PCN: ASPROD1, Group: [id number], ID# [id number], Process claim through [employer], for questions: . THIS IS NOT INSURANCE.] ceftriaxone 500 mg solution for injection RxNorm: 751784 Inj 06/23/2014 06/23/2014 Inactive [SAVINGS FOR UNINSURED PATIENTS -- BIN:224969, PCN: ASPROD1, Group: [id number], ID# [id number], Process claim through [employer], for questions: . THIS IS NOT INSURANCE.] Levaquin 500 mg tablet RxNorm: 515240 1 Tablet(s) PO daily 06/23/2014 07/13/2014 Inactive [SAVINGS FOR UNINSURED PATIENTS -- BIN:960481, PCN: ASPROD1, Group: [id number], ID# [id number], Process claim through [employer], for questions: . THIS IS NOT INSURANCE.] Duragesic 50 mcg/hr transdermal patch RxNorm: 455632 1 TD q72 hours 06/05/2014 08/06/2014 Inactive [SAVINGS FOR UNINSURED PATIENTS -- BIN:102247, PCN: ASPROD1, Group: [id number], ID# [id number], Process claim through [employer] ( [employer] ), for questions: . THIS IS NOT INSURANCE.] alprazolam 0.25 mg tablet RxNorm: 022018 1 Tablet(s) PO daily as needed TAKE ONE TABLET BY MOUTH EVERY DAY NEEDED 06/02/2014 07/29/2014 Inactive (Response to an electronic controlled substance refill request - RxReferenceNumber: [id number]) nystatin 100,000 unit/gram topical powder RxNorm: 413484 APPLY TO AFFECTED AREA(S) TWO TIMES A DAY 05/01/2014 06/14/2014 Inactive hydrochlorothiazide 25 mg tablet RxNorm: 035610 TAKE ONE TABLET BY MOUTH EVERY DAY MUST CALL MD FOR APPOINTMENT 04/24/2014 10/20/2014 Inactive alprazolam 0.25 mg tablet RxNorm: 053924 Tablet(s) TAKE ONE TABLET BY MOUTH EVERY DAY NEEDED 04/16/2014 06/02/2014 Inactive (Response to an electronic controlled substance refill request - RxReferenceNumber: [id number]) alprazolam 0.25 mg tablet RxNorm: 094343 TAKE ONE TABLET BY MOUTH EVERY DAY NEEDED 04/16/2014 05/15/2014 Inactive (Response to an electronic controlled substance refill request - RxReferenceNumber: [id number]) alprazolam 0.25 mg tablet RxNorm: 254619 TAKE ONE TABLET BY MOUTH EVERY DAY NEEDED 04/16/2014 05/15/2014 Inactive (Response to an electronic controlled substance refill request - RxReferenceNumber: [id number]) alprazolam 0.25 mg tablet RxNorm: 289261 TAKE ONE TABLET BY MOUTH EVERY DAY NEEDED 04/14/2014 04/16/2014 Inactive (Response to an electronic controlled substance refill request - RxReferenceNumber: [id number]) Lipitor 10 mg tablet RxNorm: 210093 TAKE ONE TABLET BY MOUTH EVERY DAY 04/14/2014 09/10/2014 Inactive alprazolam 0.25 mg tablet RxNorm: 933350 TAKE ONE TABLET BY MOUTH EVERY DAY NEEDED 04/14/2014 04/14/2014 Inactive (Response to an electronic controlled substance refill request - RxReferenceNumber: [id number]) alprazolam 0.25 mg tablet RxNorm: 479584 TAKE ONE TABLET BY MOUTH EVERY DAY NEEDED 04/14/2014 04/15/2014 Inactive (Response to an electronic controlled substance refill request - RxReferenceNumber: [id number]) alprazolam 0.25 mg tablet RxNorm: 416425 TAKE ONE TABLET BY MOUTH EVERY DAY NEEDED 04/14/2014 04/14/2014 Inactive (Response to an electronic controlled substance refill request - RxReferenceNumber: [id number]) nystatin 100,000 unit/gram topical powder RxNorm: 416460 1 Application TOP BID 04/03/2014 07/01/2014 Inactive [SAVINGS FOR UNINSURED PATIENTS -- BIN:[id number], PCN: ASPROD1, Group: [id number], ID# [id number], Process claim through [employer], for questions: . THIS IS NOT INSURANCE.] Keflex 500 mg capsule RxNorm: 308129 1 Capsule(s) PO QID 04/03/2014 04/09/2014 Inactive [SAVINGS FOR UNINSURED PATIENTS -- BIN:295858, PCN: ASPROD1, Group: [id number], ID# [id number], Process claim through [employer], for questions: . THIS IS NOT INSURANCE.] Synthroid 100 mcg tablet RxNorm: 856229 1 Tablet(s) PO daily TAKE ONE TABLET BY MOUTH EVERY DAY 04/01/2014 01/05/2015 Inactive [SAVINGS FOR UNINSURED PATIENTS -- BIN:343912, PCN: ASPROD1, Group: [id number], ID# [id number], Process claim through [employer], for questions: . THIS IS NOT INSURANCE.] Duragesic 50 mcg/hr transdermal patch RxNorm: 618365 1 TD q72 hours 03/24/2014 06/04/2014 Inactive [SAVINGS FOR UNINSURED PATIENTS -- BIN:163531, PCN: ASPROD1, Group: [place], ID# [id number], Process claim through [employer], for questions: . THIS IS NOT INSURANCE.] trazodone 50 mg tablet RxNorm: 917292 TAKE 1 AND 1/2 TABLET AT BEDTIME FOR 2 WEEKS, MAY INCREASE TO 2 TABLETS IF NECESSARY AFTER THAT 03/18/2014 09/13/2014 Inactive nystatin 100,000 unit/gram topical powder RxNorm: 423750 1 Application TOP BID 03/07/2014 03/16/2014 Inactive [SAVINGS FOR UNINSURED PATIENTS -- BIN:766448, PCN: ASPROD1, Group: [id number], ID# [id number], Process claim through [employer], for questions: . THIS IS NOT INSURANCE.] permethrin 5 % topical cream RxNorm: 656250 1 Application TOP daily 03/07/2014 11/23/2015 Inactive apply head to toe-leave on overnight and wash off in the a.m. May repeat x 1 if needed Diflucan 150 mg tablet RxNorm: 551349 1 Tablet(s) PO daily 03/07/2014 03/09/2014 Inactive [SAVINGS FOR UNINSURED PATIENTS -- BIN:028502, PCN: ASPROD1, Group: [id number], ID# [id number], Process claim through [employer], for questions: . THIS IS NOT INSURANCE.] hydrochlorothiazide 25 mg tablet RxNorm: 242686 TAKE ONE TABLET BY MOUTH EVERY DAY MUST CALL MD FOR APPOINTMENT 03/06/2014 04/23/2014 Inactive Zithromax Z-Sergio 250 mg tablet RxNorm: 254874 Tablet(s) PO as directed 03/04/2014 11/23/2015 Inactive [SAVINGS FOR UNINSURED PATIENTS -- BIN:601811, PCN: ASPROD1, Group: [id number], ID# [id number], Process claim through [employer], for questions: . THIS IS NOT INSURANCE.] Flonase 50 mcg/actuation nasal spray,suspension RxNorm: 237062 1 [place] NASAL daily 03/04/2014 07/01/2014 Inactive [SAVINGS FOR UNINSURED PATIENTS -- BIN:214667, PCN: ASPROD1, Group: [id number], ID# [id number], Process claim through [employer] ( [employer] ), for questions: . THIS IS NOT INSURANCE.] alprazolam 0.25 mg tablet RxNorm: 656772 1 Tablet(s) PO PRN TAKE ONE TABLET BY MOUTH EVERY DAY NEEDED 02/25/2014 04/14/2014 Inactive (Appended: Controlled substance eRx refill - RxReferenceNumber: [id number]) alprazolam 0.25 mg tablet RxNorm: 767049 TAKE ONE TABLET BY MOUTH EVERY DAY NEEDED 02/21/2014 03/22/2014 Inactive (Response to an electronic controlled substance refill request - RxReferenceNumber: [id number]) alprazolam 0.25 mg tablet RxNorm: 269446 TAKE ONE TABLET BY MOUTH EVERY DAY NEEDED 02/21/2014 03/22/2014 Inactive (Response to an electronic controlled substance refill request - RxReferenceNumber: [id number]) alprazolam 0.25 mg tablet RxNorm: 541760 TAKE ONE TABLET BY MOUTH EVERY DAY NEEDED 02/18/2014 03/19/2014 Inactive (Response to an electronic controlled substance refill request - RxReferenceNumber: [id number]) Cymbalta 60 mg capsule,delayed release RxNorm: 471289 TAKE ONE CAPSULE BY MOUTH TWICE A DAY 02/18/2014 01/13/2015 Inactive Nexium 40 mg capsule,delayed release RxNorm: 398199 TAKE ONE CAPSULE BY MOUTH EVERY DAY 02/18/2014 01/13/2015 Inactive Bactrim DS 800 mg-160 mg tablet RxNorm: 715678 1 Tablet(s) PO BID 02/13/2014 02/19/2014 Inactive probiotic while one antibiotic Bactrim DS 800 mg-160 mg tablet RxNorm: 419990 1 Tablet(s) PO BID 02/13/2014 02/12/2014 Inactive hydrocodone 10 mg-acetaminophen 325 mg tablet RxNorm: 549029 Tablet(s) PO TAKE ONE TO TWO TABLETS BY MOUTH EVERY 6 HOURS NEEDED FOR PAIN 02/06/2014 03/18/2015 Inactive (Appended: Controlled substance eRx refill - RxReferenceNumber: [id number]) Abilify 2 mg tablet RxNorm: 036949 Tablet(s) PO TAKE ONE TABLET BY MOUTH EVERY NIGHT AT BEDTIME 02/03/2014 03/19/2015 Inactive Duragesic 50 mcg/hr transdermal patch RxNorm: 922871 1 TD q72 hours 01/14/2014 03/23/2014 Inactive alprazolam 0.25 mg tablet RxNorm: 746529 1 Tablet(s) PO QDAY PRN 01/14/2014 02/12/2014 Inactive alprazolam 0.25 mg tablet RxNorm: 832786 Tablet(s) PO TAKE ONE TABLET BY MOUTH EVERY DAY NEEDED 01/14/2014 02/24/2014 Inactive (Appended: Controlled substance eRx refill - RxReferenceNumber: [id number]) Lipitor 10 mg tablet RxNorm: 001846 Tablet(s) PO TAKE ONE TABLET BY MOUTH EVERY DAY 01/14/2014 04/13/2014 Inactive Synthroid 100 mcg tablet RxNorm: 875269 Tablet(s) PO TAKE ONE TABLET BY MOUTH EVERY DAY 2013 03/31/2014 Inactive Fioricet 50 mg-325 mg-40 mg tablet RxNorm: 701383 Tablet(s) PO TAKE ONE TABLET BY MOUTH EVERY 4 HOURS NEEDED FOR PAIN 11/27/2013 09/17/2014 Inactive Fioricet 50 mg-325 mg-40 mg tablet RxNorm: 793769 Tablet(s) PO TAKE ONE TABLET BY MOUTH EVERY 4 HOURS NEEDED FOR PAIN 11/25/2013 11/26/2013 Inactive Zithromax Z-Sergio 250 mg tablet RxNorm: 181160 Tablet(s) PO as directed 11/11/2013 01/13/2014 Inactive Bystolic 10 mg tablet RxNorm: 914166 Tablet(s) PO TAKE ONE TABLET BY MOUTH EVERY DAY 10/21/2013 09/28/2014 Inactive Abilify 2 mg tablet RxNorm: 008257 1 Tablet(s) PO QHS 09/25/2013 01/22/2014 Inactive Synthroid 100 mcg tablet RxNorm: 670828 Tablet(s) PO TAKE ONE TABLET BY MOUTH EVERY DAY 09/24/2013 12/25/2013 Inactive Abilify 2 mg tablet RxNorm: 039325 1 Tablet(s) PO QHS 09/24/2013 09/24/2013 Inactive Rocephin 500 mg solution for injection RxNorm: 664530 1ml Milliliter(s) Inj 09/24/2013 09/24/2013 Inactive Rocephin 500 mg solution for injection RxNorm: 528288 1 Milliliter(s) Inj 09/19/2013 09/19/2013 Inactive Bystolic 5 mg tablet RxNorm: 189524 1 1/2 Tablet(s) PO daily 09/17/2013 03/15/2014 Inactive 1 1/2 daily may have 90 day if cheaper Bystolic 5 mg tablet RxNorm: 768157 1 1/2 Tablet(s) PO daily 09/17/2013 09/16/2013 Inactive 1 1/2 daily Lipitor 10 mg tablet RxNorm: 296537 Tablet(s) PO TAKE ONE TABLET BY MOUTH EVERY DAY 09/12/2013 01/13/2014 Inactive hydrocodone 10 mg-acetaminophen 325 mg tablet RxNorm: 446512 Tablet(s) PO TAKE ONE TO TWO TABLETS BY MOUTH EVERY 6 HOURS NEEDED FOR PAIN 09/09/2013 10/29/2017 Inactive (Appended: Controlled substance eRx refill - RxReferenceNumber: [id number]) hydrocodone 10 mg-acetaminophen 325 mg tablet RxNorm: 568430 1 Tablet(s) PO Q6 PRN 09/09/2013 02/06/2014 Inactive hydrocodone 10 mg-acetaminophen 325 mg tablet RxNorm: 804606 Tablet(s) PO TAKE ONE TO TWO TABLETS BY MOUTH EVERY 6 HOURS NEEDED FOR PAIN 09/06/2013 10/29/2017 Inactive (Appended: Controlled substance eRx refill - RxReferenceNumber: [id number]) Norvasc 10 mg tablet RxNorm: 287161 Tablet(s) PO TAKE ONE TABLET BY MOUTH EVERY DAY 09/05/2013 10/25/2015 Inactive trazodone 50 mg tablet RxNorm: 089380 1 1/2 Tablet(s) PO QHS 09/03/2013 03/17/2014 Inactive 75q hs x 2 week may increase to 100mg if nec after that nystatin 100,000 unit/mL oral suspension RxNorm: 603636 6 Milliliter(s) PO QID 08/06/2013 08/15/2013 Inactive Flonase 50 mcg/actuation nasal spray,suspension RxNorm: 920668 2 [place] NASAL daily 08/06/2013 03/03/2014 Inactive nystatin 100,000 unit/mL oral suspension RxNorm: 554839 6 Unit(s) PO QID 08/05/2013 08/05/2013 Inactive Phenergan with Codeine Syrup RxNorm: 5 Milliliter(s) PO Q4 PRN 08/05/2013 12/02/2013 Inactive 8 ounces alprazolam 0.25 mg tablet RxNorm: 248355 1 Tablet(s) PO QDAY PRN 07/29/2013 01/14/2014 Inactive Diflucan 150 mg tablet RxNorm: 841579 1 Tablet(s) PO daily 07/24/2013 07/26/2013 Inactive hydrochlorothiazide 25 mg tablet RxNorm: 232555 Tablet(s) PO TAKE ONE TABLET BY MOUTH EVERY DAY MUST CALL MD FOR APPOINTMENT 07/19/2013 03/05/2014 Inactive Phenergan with Codeine Syrup RxNorm: 10 Milliliter(s) PO Q4 PRN 07/10/2013 08/04/2013 Inactive 8 ounces Rocephin 500 mg solution for injection RxNorm: 911679 1 Inj 07/10/2013 07/10/2013 Inactive cefdinir 300 mg capsule RxNorm: 059438 1 Capsule(s) PO BID 07/10/2013 07/16/2013 Inactive prednisone 10 mg tablet RxNorm: 682389 3 Tablet(s) PO daily 07/10/2013 07/14/2013 Inactive Carafate 100 mg/mL oral suspension RxNorm: 750274 10 Milliliter(s) PO Q6 PRN pt to take carafate 10mL every 6 hours as needed. 07/10/2013 08/05/2014 Inactive Kenalog 40 mg/mL suspension for injection RxNorm: 1529314 1 Milliliter(s) Inj 07/10/2013 07/10/2013 Inactive trazodone 50 mg tablet RxNorm: 883252 1 Tablet(s) PO QHS 07/10/2013 09/02/2013 Inactive sulfamethoxazole 800 mg-trimethoprim 160 mg tablet RxNorm: 711343 1 Tablet(s) PO BID 06/03/2013 06/12/2013 Inactive Synthroid 125 mcg tablet RxNorm: 563527 1 Tablet(s) PO daily 05/07/2013 09/23/2013 Inactive Bystolic 10 mg tablet RxNorm: 363572 1.5 Tablet(s) PO daily 05/07/2013 09/03/2013 Inactive Voltaren 1 % Topical Gel RxNorm: 873356 4 Gram(s) TOP QID apply 4 grams to knees, 2 grams to hands and ankles four times daily. 05/07/2013 09/03/2013 Inactive hydrocodone 10 mg-acetaminophen 325 mg tablet RxNorm: 737501 1 Tablet(s) PO Q6 PRN 04/23/2013 09/09/2013 Inactive Norvasc 10 mg tablet RxNorm: 765359 Tablet(s) PO TAKE ONE TABLET BY MOUTH EVERY DAY 04/23/2013 09/04/2013 Inactive alprazolam 0.25 mg tablet RxNorm: 995512 1 Tablet(s) PO QDAY PRN 03/25/2013 07/22/2013 Inactive Bystolic 10 mg tablet RxNorm: 451073 1 Tablet(s) PO daily TAKE ONE TABLET BY MOUTH EVERY DAY 03/25/2013 05/06/2013 Inactive zolpidem 10 mg tablet RxNorm: 670359 1 Tablet(s) PO HS PRN 03/25/2013 07/09/2013 Inactive gentamicin 0.3 % Eye Drops RxNorm: 5198984 3 Drop(s) OPH QID three gtts to each eye QID x 7 days 03/11/2013 03/10/2013 Inactive gentamicin 0.3 % eye drops RxNorm: 904115 3 Drop(s) OPH QID three gtts to each eye QID x 7 days 03/11/2013 03/17/2013 Inactive Nexium 40 mg capsule,delayed release RxNorm: 716507 Capsule(s) PO TAKE ONE CAPSULE BY MOUTH EVERY DAY 02/15/2013 02/17/2014 Inactive Cymbalta 60 mg capsule,delayed release RxNorm: 692382 Capsule(s) PO TAKE ONE CAPSULE BY MOUTH TWICE A DAY 02/15/2013 02/17/2014 Inactive hydrocodone 10 mg-acetaminophen 325 mg tablet RxNorm: 4491895 1 Tablet(s) PO Q6 PRN 01/22/2013 04/22/2013 Inactive Lipitor 10 mg tablet RxNorm: 958691 Tablet(s) PO TAKE ONE TABLET BY MOUTH EVERY DAY 01/07/2013 09/11/2013 Inactive Cymbalta 60 mg capsule,delayed release RxNorm: 845213 Capsule(s) PO TAKE ONE CAPSULE BY MOUTH TWICE A DAY 01/02/2013 02/14/2013 Inactive Synthroid 100 mcg tablet RxNorm: 593102 1 Tablet(s) PO 12/03/2012 05/06/2013 Inactive Enablex 7.5 mg tablet,extended release RxNorm: 204864 1 Tablet(s) PO daily 11/28/2012 11/27/2012 Inactive Enablex 7.5 mg tablet,extended release RxNorm: 079629 1 Tablet(s) PO daily 11/28/2012 11/28/2012 Inactive scopolamine 1.5 mg 72 hr Transderm Patch RxNorm: 458286 1 Milligram(s) TD q72 hours 11/26/2012 05/06/2013 Inactive hydrochlorothiazide 25 mg tablet RxNorm: 337045 Tablet(s) PO TAKE ONE TABLET BY MOUTH EVERY DAY MUST CALL MD FOR APPOINTMENT 11/24/2012 07/18/2013 Inactive Cymbalta 60 mg capsule,delayed release RxNorm: 902514 Capsule(s) PO TAKE ONE CAPSULE BY MOUTH TWICE A DAY 10/26/2012 01/01/2013 Inactive Bystolic 10 mg tablet RxNorm: 707189 Tablet(s) PO TAKE ONE TABLET BY MOUTH EVERY DAY 10/12/2012 03/25/2013 Inactive zolpidem 10 mg tablet RxNorm: 847693 1 Tablet(s) PO HS PRN 10/02/2012 01/29/2013 Inactive alprazolam 0.25 mg tablet RxNorm: 362686 1 Tablet(s) PO QDAY PRN 10/02/2012 01/29/2013 Inactive Kenalog 40 mg/mL Susp for Injection RxNorm: 8188634 1 Milliliter(s) Inj 09/24/2012 09/24/2012 Inactive Diflucan 150 mg tablet RxNorm: 001675 1 Tablet(s) PO daily 09/24/2012 09/30/2012 Inactive acyclovir 400 mg tablet RxNorm: 009724 1 Tablet(s) PO QID 09/24/2012 10/08/2012 Inactive Cipro 500 mg tablet RxNorm: 521195 1 Tablet(s) PO BID 09/24/2012 09/30/2012 Inactive Tamiflu 75 mg capsule RxNorm: 840387 1 Capsule(s) PO BID 09/17/2012 09/16/2012 Inactive Tamiflu 75 mg capsule RxNorm: 998365 1 Capsule(s) PO BID 09/17/2012 09/16/2012 Inactive Tamiflu 75 mg capsule RxNorm: 815896 1 Capsule(s) PO BID please disregard order for #14 09/17/2012 09/21/2012 Inactive fluconazole 150 mg tablet RxNorm: 112476 1 Tablet(s) PO daily 09/10/2012 09/13/2012 Inactive ketoconazole 2 % Topical Cream RxNorm: 235248 Application TOP BID apply to affected area BID until gone 08/31/2012 11/01/2017 Inactive Norvasc 10 mg tablet RxNorm: 435675 Tablet(s) PO TAKE ONE TABLET BY MOUTH EVERY DAY 08/29/2012 04/22/2013 Inactive Cipro 500 mg tablet RxNorm: 470160 1 Tablet(s) PO BID 08/17/2012 08/26/2012 Inactive Flagyl 500 mg tablet RxNorm: 875527 1 Tablet(s) PO TID 08/17/2012 08/23/2012 Inactive Cipro 500 mg tablet RxNorm: 782847 1 Tablet(s) PO BID 08/17/2012 08/16/2012 Inactive zolpidem 10 mg tablet RxNorm: 013831 1 Tablet(s) PO HS PRN 08/17/2012 09/15/2012 Inactive Flagyl 500 mg tablet RxNorm: 112151 1 Tablet(s) PO TID 08/17/2012 08/16/2012 Inactive alprazolam 0.25 mg tablet RxNorm: 594495 1 Tablet(s) PO QDAY PRN 08/17/2012 09/15/2012 Inactive [place] Allergy 180 mg tablet RxNorm: 742490 1 Tablet(s) PO daily 08/08/2012 02/03/2013 Inactive hydrochlorothiazide 25 mg tablet RxNorm: 674569 1/2 Tablet(s) PO daily 08/08/2012 11/05/2012 Inactive needs appt Carafate 1 gram tablet RxNorm: 207469 1 Tablet(s) PO QID mix with 10 cc water and dissolve into slurry 08/08/2012 08/21/2012 Inactive hydrocodone 10 mg-acetaminophen 325 mg tablet RxNorm: 8508245 1 Tablet(s) PO Q6 PRN 08/08/2012 01/21/2013 Inactive Synthroid 100 mcg tablet RxNorm: 539386 1 Tablet(s) PO 08/08/2012 12/02/2012 Inactive Cymbalta 60 mg capsule,delayed release RxNorm: 009950 Capsule(s) PO 07/23/2012 10/25/2012 Inactive TAKE ONE CAPSULE BY MOUTH TWICE A DAY Nexium 40 mg capsule,delayed release RxNorm: 875619 Capsule(s) PO 06/20/2012 02/14/2013 Inactive TAKE ONE CAPSULE BY MOUTH EVERY DAY Lipitor 10 mg tablet RxNorm: 033912 Tablet(s) PO 06/20/2012 01/06/2013 Inactive TAKE ONE TABLET BY MOUTH EVERY DAY hydrochlorothiazide 25 mg tablet RxNorm: 507998 1 Tablet(s) PO daily 06/19/2012 08/07/2012 Inactive needs appt alprazolam 0.25 mg tablet RxNorm: 806905 1 Tablet(s) PO QDAY PRN 06/05/2012 07/04/2012 Inactive zolpidem 10 mg tablet RxNorm: 550551 1 Tablet(s) PO HS PRN 06/05/2012 07/04/2012 Inactive zolpidem 10 mg tablet RxNorm: 495212 1 Tablet(s) PO HS PRN 04/16/2012 05/15/2012 Inactive alprazolam 0.25 mg tablet RxNorm: 776202 1 Tablet(s) PO QDAY PRN 04/16/2012 05/15/2012 Inactive Cymbalta 60 mg capsule,delayed release RxNorm: 928170 1 Capsule(s) PO BID 03/22/2012 07/19/2012 Inactive Fioricet 50 mg-325 mg-40 mg tablet RxNorm: 602940 1 Tablet(s) PO Q4 PRN 03/22/2012 11/24/2013 Inactive Bystolic 10 mg tablet RxNorm: 671516 Tablet(s) PO 03/22/2012 10/11/2012 Inactive TAKE ONE TABLET BY MOUTH EVERY DAY potassium chloride ER 10 mEq Tab RxNorm: 840954 1 Tablet(s) PO daily 02/24/2012 03/01/2012 Inactive Lasix 20 mg Tab RxNorm: 669560 1 Tablet(s) PO daily 02/22/2012 02/21/2012 Inactive KCL 10 meq RxNorm: 1 PO daily 02/22/2012 02/21/2012 Inactive potassium chloride ER 10 mEq Tab RxNorm: 809136 1 Tablet(s) PO daily 02/22/2012 02/21/2012 Inactive Lasix 20 mg Tab RxNorm: 785178 1 Tablet(s) PO daily 02/22/2012 02/28/2012 Inactive KCL 10 meq RxNorm: 1 PO daily 02/22/2012 02/22/2012 Inactive potassium chloride ER 10 mEq Tab RxNorm: 421459 1 Tablet(s) PO daily 02/22/2012 02/23/2012 Inactive Rocephin 500 mg Solution for Injection RxNorm: 624467 Inj 02/15/2012 02/15/2012 Inactive Nexium 40 mg capsule,delayed release RxNorm: 061204 1 Capsule(s) PO daily 02/15/2012 No Stop Date Active Bystolic 10 mg Tab RxNorm: 718467 1 Tablet(s) PO daily 02/15/2012 08/12/2012 Inactive alprazolam 0.25 mg tablet RxNorm: 801069 1 Tablet(s) PO QDAY PRN 01/31/2012 02/29/2012 Inactive zolpidem 10 mg tablet RxNorm: 529260 1 Tablet(s) PO HS PRN 01/31/2012 02/29/2012 Inactive alprazolam 0.25 mg Tab RxNorm: 497091 1 Tablet(s) PO QDAY PRN 12/16/2011 01/14/2012 Inactive zolpidem 10 mg Tab RxNorm: 579835 1 Tablet(s) PO HS PRN 12/16/2011 01/14/2012 Inactive Norvasc 10 mg tablet RxNorm: 663283 1 Tablet(s) PO daily 12/02/2011 02/21/2012 Inactive Lipitor 10 mg tablet RxNorm: 189390 1 Tablet(s) PO daily 11/16/2011 05/13/2012 Inactive zolpidem 10 mg Tab RxNorm: 431948 1 Tablet(s) PO HS PRN 10/26/2011 12/15/2011 Inactive alprazolam 0.25 mg Tab RxNorm: 961625 1 Tablet(s) PO QDAY PRN 10/26/2011 12/15/2011 Inactive hydrochlorothiazide 25 mg tablet RxNorm: 251148 1 Tablet(s) PO daily 09/05/2011 03/02/2012 Inactive Synthroid 75 mcg tablet RxNorm: 140932 1 Tablet(s) PO daily 08/01/2011 02/26/2012 Inactive Abilify 2 mg Tab RxNorm: 585731 1 Tablet(s) PO QHS 08/01/2011 09/10/2012 Inactive dicyclomine 10 mg Cap RxNorm: 439543 1 Capsule(s) PO TID 08/01/2011 10/29/2011 Inactive alprazolam 0.25 mg Tab RxNorm: 885340 1 Tablet(s) PO QDAY PRN 07/26/2011 10/25/2011 Inactive Fioricet 50 mg-325 mg-40 mg tablet RxNorm: 256465 1 Tablet(s) PO Q4 PRN 07/14/2011 03/21/2012 Inactive Rocephin 500 mg Solution for Injection RxNorm: 487916 1 Milliliter(s) Inj 07/14/2011 08/01/2011 Inactive Nexium 40 mg Capsule, delayed release RxNorm: 746955 1 Capsule(s) PO daily 05/23/2011 10/06/2011 Inactive Bystolic 10 mg tablet RxNorm: 299669 1 Tablet(s) PO daily 05/23/2011 11/18/2011 Inactive Bystolic 10 mg Tab RxNorm: 925715 1 Tablet(s) PO daily 05/23/2011 05/22/2011 Inactive alprazolam 0.25 mg Tab RxNorm: 427446 1 Tablet(s) PO QDAY PRN 05/23/2011 07/25/2011 Inactive Influenza Virus Vaccine 0.5 mL RxNorm: IM 05/23/2011 05/23/2011 Inactive zolpidem 10 mg Tab RxNorm: 737103 1 Tablet(s) PO HS PRN 05/23/2011 10/25/2011 Inactive Rocephin 500 mg Solution for Injection RxNorm: 717851 1 Milliliter(s) Inj 05/03/2011 07/14/2011 Inactive Kenalog 40 mg/mL Susp for Injection RxNorm: 6049950 1 Milliliter(s) Inj 05/03/2011 07/14/2011 Inactive Bactrim DS 800 mg-160 mg Tab RxNorm: 670344 1 Tablet(s) PO BID 05/03/2011 08/01/2011 Inactive Bystolic 10 mg tablet RxNorm: 475811 1 Tablet(s) PO daily No Start Date Active Flonase 50 mcg/actuation nasal spray,suspension RxNorm: 5612291 2 [place] NASAL daily No Start Date 08/05/2013 Inactive Levaquin 500 mg tablet RxNorm: 978293 Tablet(s) PO No Start Date 04/19/2017 Inactive Duragesic 50 mcg/hr transdermal patch RxNorm: 272832 1 TD q72 hours No Start Date 01/13/2014 Inactive Vesicare 5 mg tablet RxNorm: 976976 1 Tablet(s) PO daily No Start Date 01/06/2015 Inactive Celebrex 200 mg capsule RxNorm: 186937 1 Capsule(s) PO daily No Start Date 04/02/2014 Inactive zolpidem 10 mg Tab RxNorm: 627831 1 Tablet(s) PO HS PRN No Start Date 05/22/2011 Inactive Zyrtec 10 mg Tab RxNorm: 6510923 1 Tablet(s) PO daily No Start Date 08/08/2012 Inactive Flonase 50 mcg/actuation nasal spray,suspension RxNorm: 6592467 1 [place] NASAL daily No Start Date 11/07/2017 Inactive 1 spray to each nostril daily Nexium 40 mg Cap RxNorm: 623828 1 Capsule(s) PO daily No Start Date 05/22/2011 Inactive ketoconazole 2 % Topical Cream RxNorm: 144885 Application TOP BID apply to affected area BID until gone No Start Date 08/30/2012 Inactive aspirin 81 mg tablet RxNorm: 908544 1 Tablet(s) PO daily No Start Date 11/13/2017 Inactive Cymbalta 60 mg capsule,delayed release RxNorm: 492792 1 Capsule(s) PO BID No Start Date 03/21/2012 Inactive alprazolam 0.25 mg Tab RxNorm: 121298 1 Tablet(s) PO QDAY PRN No Start Date 05/22/2011 Inactive baclofen 10 mg tablet RxNorm: 325311 1 Tablet(s) PO TID as needed muscle spasms No Start Date 11/14/2017 Inactive Toprol XL 100 mg 24 hr Tab RxNorm: 398630 1 Tablet(s) PO BID No Start Date 04/25/2011 Inactive Xanax 0.25 mg tablet RxNorm: 105115 1 Tablet(s) PO daily as needed No Start Date 12/27/2015 Inactive Bystolic 10 mg Tab RxNorm: 074331 1 Tablet(s) PO daily No Start Date 05/22/2011 Inactive Fioricet 50 mg-325 mg-40 mg Tab RxNorm: 318562 1 Tablet(s) PO Q4 PRN No Start Date 07/13/2011 Inactive albuterol sulfate HFA 90 mcg/Actuation Aerosol Inhaler RxNorm: 4979042 1 INH Q4 PRN No Start Date 01/06/2015 Inactive Imitrex 50 mg tablet RxNorm: 752428 1 Tablet(s) PO Q8 as needed may repeat x1 dose in 1 hour of inital dose. No Start Date 02/24/2016 Inactive dc fioricet Tessalon 200 mg Cap RxNorm: 665223 1 Capsule(s) PO Q4 PRN No Start Date 02/14/2012 Inactive Zithromax Z-Sergio 250 mg tablet RxNorm: 768874 Tablet(s) PO No Start Date 11/10/2013 Inactive hydrochlorothiazide 25 mg Tab RxNorm: 775164 1 Tablet(s) PO daily No Start Date 09/04/2011 Inactive Fish Oil 1,000 mg Cap RxNorm: 1 Capsule(s) PO TID No Start Date 11/08/2017 Inactive Deplin 15 mg Tab RxNorm: 1 Tablet(s) PO daily No Start Date 08/01/2011 Inactive Brilinta 90 mg tablet RxNorm: 9847899 1 Tablet(s) PO BID No Start Date 11/23/2015 Inactive Synthroid 75 mcg Tab RxNorm: 149169 1 Tablet(s) PO daily No Start Date 07/31/2011 Inactive ciprofloxacin 0.3 % eye drops RxNorm: 812756 2 Drop(s) ophthalmic (eye) Q2H while awake x 2 days, then Q4H x 5 days No Start Date 11/22/2017 Inactive scopolamine 1.5 mg 72 hr Transderm Patch RxNorm: 321403 1 Milligram(s) TD q72 hours No Start Date 11/25/2012 Inactive hydrocodone-acetaminophen 10 mg-325 mg tablet RxNorm: 1446809 1 Tablet(s) PO Q6 PRN No Start Date 08/07/2012 Inactive Phenergan with Codeine Syrup RxNorm: 5-10 Milliliter(s) PO Q6 PRN No Start Date 02/14/2012 Inactive Norvasc 10 mg Tab RxNorm: 750089 1 Tablet(s) PO daily No Start Date 12/01/2011 Inactive Zithromax Z-Sergio 250 mg Tab RxNorm: 376363 Tablet(s) PO No Start Date 08/01/2011 Inactive Medication Administered Medication Codes Instructions Start Date Status ceftriaxone 500 mg solution for injection RxNorm: 6722357 05/28/2018 No longer Active Kenalog 40 mg/mL suspension for injection RxNorm: 5287163 Milliliter 05/28/2018 No longer Active Kenalog 40 mg/mL suspension for injection RxNorm: 3560606 1Milliliter 01/19/2018 No longer Active ceftriaxone 500 mg solution for injection RxNorm: 7654301 500Milligram 01/19/2018 No longer Active Kenalog 40 mg/mL suspension for injection RxNorm: 7741961 1Milliliter 06/27/2017 No longer Active Kenalog 40 mg/mL suspension for injection RxNorm: 0845636 Milliliter 04/20/2017 No longer Active Kenalog 40 mg/mL suspension for injection RxNorm: 6273340 1Milliliter 03/14/2017 No longer Active ceftriaxone 500 mg solution for injection RxNorm: 9793009 1Milliliter 11/28/2016 No longer Active Kenalog 40 mg/mL suspension for injection RxNorm: 5413452 Milliliter 11/07/2016 No longer Active ceftriaxone 500 mg solution for injection RxNorm: 4186054 11/07/2016 No longer Active ceftriaxone 500 mg solution for injection RxNorm: 9840572 12/07/2015 No longer Active ceftriaxone 500 mg solution for injection RxNorm: 5601768 Milliliter 11/24/2015 No longer Active Kenalog 40 mg/mL suspension for injection RxNorm: 0995489 1Milliliter 11/24/2015 No longer Active promethazine 25 mg/mL injection solution RxNorm: 612369 Milliliter 08/27/2015 No longer Active ketorolac 60 mg/2 mL intramuscular solution RxNorm: 072300 Milliliter 08/27/2015 No longer Active ceftriaxone 500 mg solution for injection RxNorm: 8215162 08/10/2015 No longer Active Kenalog 40 mg/mL suspension for injection RxNorm: 4957766 Milliliter 08/10/2015 No longer Active ceftriaxone 500 mg solution for injection RxNorm: 7889001 1Milliliter 07/28/2015 No longer Active Kenalog 40 mg/mL suspension for injection RxNorm: 1117886 Milliliter 03/19/2015 No longer Active Kenalog 40 mg/mL suspension for injection RxNorm: 7072022 Milliliter 06/23/2014 No longer Active ceftriaxone 500 mg solution for injection RxNorm: 856536 06/23/2014 No longer Active Rocephin 500 mg solution for injection RxNorm: 910112 1mlMilliliter 09/24/2013 No longer Active Rocephin 500 mg solution for injection RxNorm: 492862 1Milliliter 09/19/2013 No longer Active Kenalog 40 mg/mL suspension for injection RxNorm: 7053861 1Milliliter 07/10/2013 No longer Active Rocephin 500 mg solution for injection RxNorm: 767345 1 07/10/2013 No longer Active Kenalog 40 mg/mL Susp for Injection RxNorm: 1828598 1Milliliter 09/24/2012 No longer Active Rocephin 500 mg Solution for Injection RxNorm: 231471 02/15/2012 No longer Active Influenza Virus Vaccine 0.5 mL RxNorm: 05/23/2011 No longer Active Immunizations Vaccine Codes Date Status Influenza CVX: 141 06/24/2013 completed Pneumococcal CVX: 33 06/24/2013 completed PPD Unknown 05/13/2013 completed Assessments Condition Codes Effective Dates Generalized anxiety disorder ICD-10: F41.1 ICD-9: 300.00 07/16/2018 Essential (primary) hypertension ICD-10: I10 ICD-9: 401.1 07/16/2018 Low back pain ICD-10: M54.5 ICD-9: 724.2 07/10/2018 Frequency of micturition ICD-10: R35.0 ICD-9: 788.41 07/10/2018 Acute recurrent maxillary sinusitis ICD-10: J01.01 ICD-9: 461.0 07/10/2018 Laceration without foreign body, right lower [...] (adult) (pediatric) ICD-10: G47.33 ICD-9: 780.57 01/19/2018 Other allergic rhinitis ICD-10: J30.89 ICD-9: 477.8 01/19/2018 Encounter for general adult medical examination [...] pain ICD-10: R10.13 ICD-9: 536.8 02/20/2017 Left lower quadrant pain ICD-10: R10.32 ICD-9: 789.04 02/20/2017 Left upper quadrant pain ICD-10: R10.12 ICD-9: 789.02 02/20/2017 Major depressive disorder, recurrent, moderate ICD-10: [...] serum enzymes ICD-10: R74.8 ICD-9: 790.5 06/11/2015 Sleep apnea ICD-9: 780.57 03/19/2015 ESSENTIAL HYPERTENSION ICD-9: 401.9 03/19/2015 ALLERGIC RHINITIS ICD-9: 477.9 03/19/2015 Hypothyroid ICD-9: 244.9 03/19/2015 Anxiety ICD-9: 300.00 03/19/2015 ACUTE SINUSITIS ICD-9: 461.9 01/07/2015 OTALGIA [...] ICD-9: 110.5 03/07/2014 Dysuria ICD-9: 788.1 02/11/2014 Lumbago ICD-9: 724.2 11/21/2013 OSTEOARTH NOS-UNSPEC ICD-9: 715.90 11/21/2013 History of urinary tract infection ICD-9: V13.02 10/15/2013 DEPRESSIVE DISORDER NEC ICD-9: 311 09/24/2013 Paronychia ICD-9: 681.9 09/24/2013 Cellulitis ICD-9: 682.9 09/19/2013 Thrush ICD-9: 112.0 08/05/2013 Insomnia ICD-9: 780.52 07/10/2013 COUGH ICD-9: 786.2 07/10/2013 ESOPHAGEAL REFLUX ICD-9: 530.81 07/10/2013 Bronchitis ICD-9: 490 07/10/2013 ACUTE MAXILLARY SINUSITIS ICD-9: 461.0 07/10/2013 ENCNTR LONG-RX USE NEC ICD-9: V58.69 04/30/2013 Abnormal glucose ICD-9: 790.29 04/30/2013 HYPERLIPIDEMIA ICD-9: 272.4 04/30/2013 Hip pain ICD-9: 719.45 12/03/2012 Knee pain, bilateral ICD-9: 719.46 12/03/2012 JOINT PAIN-MULT JOINTS ICD-9: 719.49 08/08/2012 EDEMA ICD-9: 782.3 02/16/2012 Urinary frequency ICD-9: 788.41 02/15/2012 Urinary tract infection ICD-9: 599.0 02/15/2012 Fatigue ICD-9: 780.79 02/15/2012 Abdominal pain ICD-9: 789.00 11/10/2011 Nausea ICD-9: 787.02 11/10/2011 Irritable bowel disease ICD-9: 564.1 08/01/2011 DIARRHEA ICD-9: 787.91 08/01/2011 VACCIN FOR INFLUENZA ICD-9: V04.81 05/23/2011 GENERALIZED ANXIETY DISEASE ICD-9: 300.02 05/23/2011 SLEEP DISTURBANCES ICD-9: 780.50 05/23/2011 Reason For Visit Reason For Visit Effective Dates Notes hypertension 07/16/2018 nasal discharge 07/10/2018 sinus congestion [...] Item Item Code Result Date Comp Metabolic Cpy643 NA 141 mEq/L 09/12/2017 Comp Metabolic Gne670 K 4.1 mEq/L 09/12/2017 Comp Metabolic Qls371 CL 105 mEq/L 09/12/2017 Comp Metabolic Pqf376 CO2 30.0 mEq/L 09/12/2017 Comp Metabolic Rgm335 ANION GAP 10 09/12/2017 Comp Metabolic Psf744 GLUCOSE 97 mg/dL 09/12/2017 Comp Metabolic Wqs923 Creat 0.7 mg/dL 09/12/2017 Comp Metabolic Jve495 eGFR 91 ml/min/1.73m2 09/12/2017 Comp Metabolic Oxp830 BUN 18 mg/dL 09/12/2017 Comp Metabolic Hpe771 B/C Ratio 26.5 Ratio 09/12/2017 Comp Metabolic Ssv111 CALCIUM 9.7 mg/dL 09/12/2017 Comp Metabolic Ckf119 ALK PHOS 60 U/L 09/12/2017 Comp Metabolic Jgb583 AST(SGOT) 22 U/L 09/12/2017 Comp Metabolic Evh882 ALT(SGPT) 23 U/L 09/12/2017 Comp Metabolic Fcm956 BILI T 0.4 mg/dL 09/12/2017 Comp Metabolic Tae594 ALBUMIN 3.8 g/dL 09/12/2017 Comp Metabolic Lnj248 TPRO 6.4 g/dL 09/12/2017 Comp Metabolic Kuk162 GLOB 2.6 g/dL 09/12/2017 Comp Metabolic Spq840 A/G Ratio 1.5 Ratio 09/12/2017 Comp Metabolic Bnl709 Osmo 283 mOsmo 09/12/2017 Cbc With Differential Ord2 WBC 7.90 K/ul 09/12/2017 Cbc With Differential Ord2 RBC 4.99 M/ul 09/12/2017 Cbc With Differential Ord2 HGB 15.3 g/dl 09/12/2017 Cbc With Differential Ord2 Neut% 57.0 % 09/12/2017 Cbc With Differential Ord2 HCT 47.5 % 09/12/2017 Cbc With Differential Ord2 MCV 95.2 fl 09/12/2017 Cbc With Differential Ord2 Lymph% 31.1 % 09/12/2017 Cbc With Differential Ord2 [place]% 7.2 % 09/12/2017 Cbc With Differential Ord2 MCH 30.7 pg 09/12/2017 Cbc With Differential Ord2 Eos% 3.9 % 09/12/2017 Cbc With Differential Ord2 MCHC 32.2 pg 09/12/2017 Cbc With Differential Ord2 Baso% 0.8 % 09/12/2017 Cbc With Differential Ord2 PLT 232 K/ul 09/12/2017 Cbc With Differential Ord2 Neut ABS# 4.50 K/ul 09/12/2017 Cbc With Differential Ord2 RDW 13.2 % 09/12/2017 Cbc With Differential Ord2 Lymph ABS# 2.46 K/ul 09/12/2017 Cbc With Differential Ord2 [place] ABS# 0.6 K/ul 09/12/2017 Cbc With Differential [...] 11/07/2016 Lipid Ord30 C/HDL 3.9 Ratio 11/07/2016 Comp Metabolic Etq909 NA 139 mEq/L 11/07/2016 Comp Metabolic Xkr339 K 3.8 mEq/L 11/07/2016 Comp Metabolic Eva067 CL 106 mEq/L 11/07/2016 Comp Metabolic Gsi643 CO2 25.0 mEq/L 11/07/2016 Comp Metabolic Irg671 ANION GAP 12 11/07/2016 Comp Metabolic Voy073 GLUCOSE 98 mg/dL 11/07/2016 Comp Metabolic Qlg737 Creat 0.8 mg/dL 11/07/2016 Comp Metabolic Omz228 eGFR 71 ml/min/1.73m2 11/07/2016 Comp Metabolic Dsc961 BUN 36 mg/dL 11/07/2016 Comp Metabolic Qku056 B/C Ratio 42.9 Ratio 11/07/2016 Comp Metabolic Cxt319 CALCIUM 9.9 mg/dL 11/07/2016 Comp Metabolic Til120 ALK PHOS 57 U/L 11/07/2016 Comp Metabolic Mrj329 AST(SGOT) 24 U/L 11/07/2016 Comp Metabolic Qse529 ALT(SGPT) 28 U/L 11/07/2016 Comp Metabolic Fjp452 BILI T 0.4 mg/dL 11/07/2016 Comp Metabolic Gqx797 ALBUMIN 4.2 g/dL 11/07/2016 Comp Metabolic Doq245 TPRO 7.0 g/dL 11/07/2016 Comp Metabolic Qxj022 GLOB 2.8 g/dL 11/07/2016 Comp Metabolic Bbr556 A/G Ratio 1.5 Ratio 11/07/2016 Comp Metabolic Wdu846 Osmo 286 mOsmo 11/07/2016 Tsh Ord6 hTSH II 3.46 uIU/mL 11/07/2016 Free T4 Ikn333 FREE T4 0.75 ng/dL 11/07/2016 Cbc With Differential Ord2 WBC 9.22 K/ul 11/07/2016 Cbc With Differential Ord2 RBC 4.87 M/ul 11/07/2016 Cbc With Differential Ord2 HGB 15.3 g/dl 11/07/2016 Cbc With Differential Ord2 HCT 47.0 % 11/07/2016 Cbc With Differential Ord2 Neut% 63.7 % 11/07/2016 Cbc With Differential Ord2 Lymph% 26.9 % 11/07/2016 Cbc With Differential Ord2 MCV 96.5 fl 11/07/2016 Cbc With Differential Ord2 [place]% 6.1 % 11/07/2016 Cbc With Differential Ord2 [...] 2.48 K/ul 11/07/2016 Cbc With Differential Ord2 [place] ABS# 0.6 K/ul 11/07/2016 Cbc With Differential Ord2 Eos ABS# 0.3 K/ul 11/07/2016 Cbc With Differential Ord2 Baso ABS# 0.1 K/ul 11/07/2016 Lipid Ord30 CHOL 169 mg/dL 05/10/2016 Lipid Ord30 HDL 50.0 mg/dl 05/10/2016 Lipid Ord30 TRIG 161 mg/dL 05/10/2016 Lipid Ord30 LDL 87 mg/dL 05/10/2016 Lipid Ord30 C/HDL 3.4 Ratio 05/10/2016 Comp Metabolic Vso763 NA 138 mEq/L 05/10/2016 Comp Metabolic Zis983 K 3.8 mEq/L 05/10/2016 Comp Metabolic Rkd574 CL 102 mEq/L 05/10/2016 Comp Metabolic Kif450 CO2 29.0 mEq/L 05/10/2016 Comp Metabolic Ifr471 ANION GAP 11 05/10/2016 Comp Metabolic Rqy900 GLUCOSE 107 mg/dL 05/10/2016 Comp Metabolic Haz906 Creat 0.7 mg/dL 05/10/2016 Comp Metabolic Qkn909 eGFR 93 ml/min/1.73m2 05/10/2016 Comp Metabolic Ztn228 BUN 18 mg/dL 05/10/2016 Comp Metabolic Yoj538 B/C Ratio 26.9 Ratio 05/10/2016 Comp Metabolic Cgt364 CALCIUM 9.8 mg/dL 05/10/2016 Comp Metabolic Zqx031 ALK PHOS 60 U/L 05/10/2016 Comp Metabolic Ook981 AST(SGOT) 21 U/L 05/10/2016 Comp Metabolic Bhw932 ALT(SGPT) 23 U/L 05/10/2016 Comp Metabolic Avl941 BILI T 0.5 mg/dL 05/10/2016 Comp Metabolic Sva652 ALBUMIN 4.1 g/dL 05/10/2016 Comp Metabolic Jja048 TPRO 6.7 g/dL 05/10/2016 Comp Metabolic Ykb365 GLOB 2.7 g/dL 05/10/2016 Comp Metabolic Xtt681 A/G Ratio 1.5 Ratio 05/10/2016 Comp Metabolic Efu548 Osmo 278 mOsmo 05/10/2016 Cbc With Differential Ord2 WBC 9.5 K/uL [...] With Differential Ord2 RDW 14.2 % 06/12/2015 Comp Metabolic Cii808 NA 137 mEq/L 06/12/2015 Comp Metabolic Axv082 K 3.8 mEq/L 06/12/2015 Comp Metabolic Cnq333 CL 104 mEq/L 06/12/2015 Comp Metabolic Bvw303 CO2 24.0 mEq/L 06/12/2015 Comp Metabolic Ioy262 ANION GAP 13 06/12/2015 Comp Metabolic Vni736 GLUCOSE 92 mg/dL 06/12/2015 Comp Metabolic Fae912 Creat 0.7 mg/dL 06/12/2015 Comp Metabolic Rpx121 eGFR 87 ml/min/1.73m2 06/12/2015 Comp Metabolic Iqw058 BUN 31 mg/dL 06/12/2015 Comp Metabolic Zxt290 B/C Ratio 43.7 Ratio 06/12/2015 Comp Metabolic Ilt054 CALCIUM 10.0 mg/dL 06/12/2015 Comp Metabolic Snw794 ALK PHOS 58 U/L 06/12/2015 Comp Metabolic Cbc225 AST(SGOT) 32 U/L 06/12/2015 Comp Metabolic Eaz034 ALT(SGPT) 33 U/L 06/12/2015 Comp Metabolic Zac908 BILI T 0.5 mg/dL 06/12/2015 Comp Metabolic Dwu747 ALBUMIN 4.1 g/dL 06/12/2015 Comp Metabolic Ngj874 TPRO 6.6 g/dL 06/12/2015 Comp Metabolic Upn217 GLOB 2.5 g/dL 06/12/2015 Comp Metabolic Izp254 A/G Ratio 1.6 Ratio 06/12/2015 Comp Metabolic Ymj672 Osmo 280 mOsmo 06/12/2015 CBC 3875030 WBC 8.7 10e9/L 04/30/2013 CBC 3342339 RBC 4.63 10e12/L 04/30/2013 CBC 0918630 HGB 14.1 g/dL 04/30/2013 CBC 7051470 HCT DET 42.2 % 04/30/2013 CBC 3239533 MCV 91.1 fL 04/30/2013 CBC 3626819 MCH 30.5 pg 04/30/2013 CBC 1549368 MCHC 33.4 g/dL 04/30/2013 CBC 5161470 PLT 248 10e9/L 04/30/2013 CBC 1405466 MPV 12.1 fL 04/30/2013 CBC 5453603 LARA % 59.0 % 04/30/2013 CBC 6980697 LY % 27.6 % 04/30/2013 CBC 5150029 MON % 8.0 % 04/30/2013 CBC 5309874 EOS % 4.8 % 04/30/2013 CBC 7261941 BASO % 0.6 % 04/30/2013 CBC 1692227 RDW 13.3 % 04/30/2013 CBC 2925780 ABS LARA 5.13 10e9/L 04/30/2013 CBC 5194587 ABS LYMPH 2.40 10e9/L 04/30/2013 CBC 3481277 ABS MONO 0.70 10e9/L 04/30/2013 CBC 9035805 ABS EOS 0.42 10e9/L 04/30/2013 CBC 3335741 ABS BASO 0.05 10e9/L 04/30/2013 CBC 7774743 RDW-SD 43.1 fL 04/30/2013 TSH 3689438 TSH 4.339 uIU/ML 04/30/2013 A1C HPLC 5912912 A1C HPLC 77460-4 5.6 % 04/30/2013 GFR CALC 4084794 GFR AA >60 ML/MIN 04/30/2013 GFR CALC 2857257 GFR NON-AA >60 ML/MIN 04/30/2013 FREE T4 9422553 FREE T4 0.84 NG/DL 04/30/2013 CHEM 14 6583910 AST 22 U/L 04/30/2013 CHEM 14 3970986 ALT 22 IU/L 04/30/2013 CHEM 14 2270280 BUN 24 MG/DL 04/30/2013 CHEM 14 6573668 ALBUMIN 4.2 GM/DL 04/30/2013 CHEM 14 1436152 CHLORIDE 107 MMOL/L 04/30/2013 CHEM 14 2484413 BILI TOT 0.3 MG/DL 04/30/2013 CHEM 14 8782340 ALK PHOS 88 U/L 04/30/2013 CHEM 14 3307240 SODIUM 141 MMOL/L 04/30/2013 CHEM 14 7639193 CREATININE 0.60 MG/DL 04/30/2013 CHEM 14 6256549 CALCIUM 9.9 MG/DL 04/30/2013 CHEM 14 6981719 POTASSIUM 3.7 MMOL/L 04/30/2013 CHEM 14 9438822 PROT TOT 6.6 GM/DL 04/30/2013 CHEM 14 6750345 GLUCOSE 123 MG/DL 04/30/2013 CHEM 14 8649711 BICARB 25 MMOL/L 04/30/2013 CHEM 14 2606819 ANION GAP 9 MEQ/L 04/30/2013 LIPID GRP HDL TEST 46 MG/DL 04/30/2013 LIPID GRP TRIG 148 MG/DL 04/30/2013 LIPID GRP TEST LDL 75 MG/DL 04/30/2013 LIPID GRP CHOL 151 MG/DL 04/30/2013 LIPID GRP RCHOL/HDL 3.28 RATIO 04/30/2013 CBC 3001213 WBC 8.4 10e9/L 11/29/2012 CBC 7501959 RBC 4.77 10e12/L 11/29/2012 CBC 4432539 HGB 14.9 g/dL 11/29/2012 CBC 1734157 HCT DET 44.2 % 11/29/2012 CBC 3602257 MCV 92.7 fL 11/29/2012 CBC 7429676 MCH 31.2 pg 11/29/2012 CBC 7916708 MCHC 33.7 g/dL 11/29/2012 CBC 1130226 PLT 253 10e9/L 11/29/2012 CBC 9205753 MPV 11.8 fL 11/29/2012 CBC 4028672 LARA % 54.9 % 11/29/2012 CBC 3919739 LY % 29.0 % 11/29/2012 CBC 0216155 MON % 10.4 % 11/29/2012 CBC 8916402 EOS % 5.1 % 11/29/2012 CBC 5308619 BASO % 0.6 % 11/29/2012 CBC 3925612 RDW 13.8 % 11/29/2012 CBC 3097390 ABS LARA 4.61 10e9/L 11/29/2012 CBC 3251606 ABS LYMPH 2.44 10e9/L 11/29/2012 CBC 9095765 ABS MONO 0.87 10e9/L 11/29/2012 CBC 0480075 ABS EOS 0.43 10e9/L 11/29/2012 CBC 7494273 ABS BASO 0.05 10e9/L 11/29/2012 CBC 9686156 RDW-SD 45.9 fL 11/29/2012 A1C HPLC 5532247 A1C HPLC 86373-7 5.5 % 11/29/2012 TSH 0200925 TSH 3.341 uIU/ML 11/29/2012 CHEM 14 7112147 AST 25 U/L 11/29/2012 CHEM 14 7008103 ALT 26 IU/L 11/29/2012 CHEM 14 2671926 BUN 25 MG/DL 11/29/2012 CHEM 14 8073770 ALBUMIN 4.4 GM/DL 11/29/2012 CHEM 14 7714539 CHLORIDE 106 MMOL/L 11/29/2012 CHEM 14 0739698 BILI TOT 0.4 MG/DL 11/29/2012 CHEM 14 4523661 ALK PHOS 86 U/L 11/29/2012 CHEM 14 3512814 SODIUM 141 MMOL/L 11/29/2012 CHEM 14 0197764 CREATININE 0.80 MG/DL 11/29/2012 CHEM 14 4440046 CALCIUM 9.7 MG/DL 11/29/2012 CHEM 14 9278878 POTASSIUM 4.0 MMOL/L 11/29/2012 CHEM 14 1585657 PROT TOT 6.6 GM/DL 11/29/2012 CHEM 14 8801986 GLUCOSE 112 MG/DL 11/29/2012 CHEM 14 1469855 BICARB 29 MMOL/L 11/29/2012 CHEM 14 1802067 ANION GAP 6 MEQ/L 11/29/2012 LIPID GRP HDL TEST 54 MG/DL 11/29/2012 LIPID GRP TRIG 77 MG/DL 11/29/2012 LIPID GRP TEST LDL 78 MG/DL 11/29/2012 LIPID GRP CHOL 147 MG/DL 11/29/2012 LIPID GRP RCHOL/HDL 2.72 RATIO 11/29/2012 FREE T4 1008274 FREE T4 1.23 NG/DL 11/29/2012 GFR CALC 8823699 GFR AA >60 ML/MIN 11/29/2012 GFR CALC 9897401 GFR NON-AA >60 ML/MIN 11/29/2012 CHEM 14 5430955 AST 23 U/L 08/07/2012 CHEM 14 2230196 ALT 34 IU/L 08/07/2012 CHEM 14 9190437 BUN 26 MG/DL 08/07/2012 CHEM 14 6332145 ALBUMIN 4.4 GM/DL 08/07/2012 CHEM 14 3242653 CHLORIDE 105 MMOL/L 08/07/2012 CHEM 14 1714525 BILI TOT 0.5 MG/DL 08/07/2012 CHEM 14 1559098 ALK PHOS 79 U/L 08/07/2012 CHEM 14 4051857 SODIUM 140 MMOL/L 08/07/2012 CHEM 14 5238905 CREATININE 0.71 MG/DL 08/07/2012 CHEM 14 3497230 CALCIUM 10.4 MG/DL 08/07/2012 CHEM 14 5114083 POTASSIUM 3.8 MMOL/L 08/07/2012 CHEM 14 4711561 PROT TOT 6.8 GM/DL 08/07/2012 CHEM 14 7823408 GLUCOSE 104 MG/DL 08/07/2012 CHEM 14 1868157 BICARB 27 MMOL/L 08/07/2012 CHEM 14 5120336 ANION GAP 8 MEQ/L 08/07/2012 CBC 6039731 WBC 8.7 10e9/L 08/07/2012 CBC 1010761 RBC 4.67 10e12/L 08/07/2012 CBC 4718969 HGB 14.4 g/dL 08/07/2012 CBC 8070218 HCT DET 42.8 % 08/07/2012 CBC 3080430 MCV 91.6 fL 08/07/2012 CBC 1474545 MCH 30.8 pg 08/07/2012 CBC 2378323 MCHC 33.6 g/dL 08/07/2012 CBC 8878306 PLT 271 10e9/L 08/07/2012 CBC 9176152 MPV 12.3 fL 08/07/2012 CBC 6546408 LARA % 50.6 % 08/07/2012 CBC 3912669 LY % 34.9 % 08/07/2012 CBC 8623579 MON % 9.1 % 08/07/2012 CBC 0533839 EOS % 5.1 % 08/07/2012 CBC 3602346 BASO % 0.3 % 08/07/2012 CBC 1471131 RDW 13.6 % 08/07/2012 CBC 1783417 ABS LARA 4.40 10e9/L 08/07/2012 CBC 5662779 ABS LYMPH 3.04 10e9/L 08/07/2012 CBC 1266880 ABS MONO 0.79 10e9/L 08/07/2012 CBC 5137356 ABS EOS 0.44 10e9/L 08/07/2012 CBC 7355946 ABS BASO 0.03 10e9/L 08/07/2012 CBC 5114863 RDW-SD 44.1 fL 08/07/2012 GFR CALC 7657196 GFR AA >60 ML/MIN 08/07/2012 GFR CALC 1775214 GFR NON-AA >60 ML/MIN 08/07/2012 TSH 3807308 TSH 7.419 uIU/ML 08/07/2012 FREE T4 6662556 FREE T4 1.11 NG/DL 08/07/2012 A1C HPLC 9044463 A1C HPLC 58751-5 5.4 % 08/07/2012 LIPID GRP HDL TEST 50 MG/DL 08/07/2012 LIPID GRP TRIG 127 MG/DL 08/07/2012 LIPID GRP TEST LDL 93 MG/DL 08/07/2012 LIPID GRP CHOL 168 MG/DL 08/07/2012 LIPID GRP RCHOL/HDL 3.36 RATIO 08/07/2012 A1C HPLC 3605289 A1C HPLC 31114-4 5.3 % 02/21/2012 TSH 2122923 TSH 0.832 uIU/ML 02/16/2012 FREE T4 4431061 FREE T4 1.04 NG/DL 02/16/2012 GFR CALC 8676662 GFR AA >60 ML/MIN 02/16/2012 GFR CALC 8561951 GFR NON-AA >60 ML/MIN 02/16/2012 BMP GLUCOSE 112 MG/DL 02/16/2012 BMP CREATININE 0.65 MG/DL 02/16/2012 BMP BUN 17 MG/DL 02/16/2012 BMP SODIUM 144 MMOL/L 02/16/2012 BMP POTASSIUM 4.0 MMOL/L 02/16/2012 BMP CHLORIDE 107 MMOL/L 02/16/2012 BMP 8489680 BICARB 29 MMOL/L 02/16/2012 BMP 1179617 ANION GAP 8 MEQ/L 02/16/2012 BMP 1242539 CALCIUM 9.5 MG/DL 02/16/2012 CBC 0319540 WBC 7.1 10e9/L 02/16/2012 CBC 9117102 RBC 4.47 10e12/L 02/16/2012 CBC 5578672 HGB 13.5 g/dL 02/16/2012 CBC 9468801 HCT DET 40.7 % 02/16/2012 CBC 3442611 MCV 91.1 fL 02/16/2012 CBC 8793869 MCH 30.2 pg 02/16/2012 CBC 4325436 MCHC 33.2 g/dL 02/16/2012 CBC 3017603 PLT 238 10e9/L 02/16/2012 CBC 1400189 MPV 11.4 fL 02/16/2012 CBC 5338076 LARA % 55.7 % 02/16/2012 CBC 6247535 LY % 29.6 % 02/16/2012 CBC 8173856 MON % 9.2 % 02/16/2012 CBC 4642407 EOS % 5.1 % 02/16/2012 CBC 0614489 BASO % 0.4 % 02/16/2012 CBC 8139746 RDW 13.0 % 02/16/2012 CBC 3865562 ABS LARA 3.95 10e9/L 02/16/2012 CBC 2454449 ABS LYMPH 2.10 10e9/L 02/16/2012 CBC 7077163 ABS MONO 0.65 10e9/L 02/16/2012 CBC 1701440 ABS EOS 0.36 10e9/L 02/16/2012 CBC 9985818 ABS BASO 0.03 10e9/L 02/16/2012 CBC 0061853 RDW-SD 42.4 fL 02/16/2012 URINALYSIS NONAUTO W/O SCOPE 80070 Specific [place] 1.015 DateTime(Free Text in Aprima) URINALYSIS NONAUTO W/O SCOPE 96407 PH 7 DateTime(Free Text in Aprima) URINALYSIS NONAUTO W/O SCOPE 35449 GLUCOSE neg DateTime(Free Text in Aprima) URINALYSIS NONAUTO W/O SCOPE 41441 Protein 1+ DateTime(Free Text in Apr[employer]) URINALYSIS NONAUTO W/O SCOPE 76481 Blood neg DateTime(Free Text in Aprima) URINALYSIS NONAUTO W/O SCOPE 14996 Bilirubin neg DateTime(Free Text in Apr[employer]) URINALYSIS NONAUTO W/O SCOPE 47668 Ketones neg DateTime(Free Text in Apr[employer]) URINALYSIS NONAUTO W/O SCOPE 07582 Urobilinogen neg DateTime(Free Text in Aprima) URINALYSIS NONAUTO W/O SCOPE 44942 Nitrite postive DateTime(Free Text in Aprima) URINALYSIS NONAUTO W/O SCOPE 81293 Leukocytes 3+ DateTime(Free Text in Aprima) URINALYSIS NONAUTO W/O SCOPE 02128 Specific [place] 1.030 DateTime(Free Text in Aprima) URINALYSIS NONAUTO W/O SCOPE 68120 PH 6 DateTime(Free Text in Aprima) URINALYSIS NONAUTO W/O SCOPE 46211 GLUCOSE neg DateTime(Free Text in Aprima) URINALYSIS NONAUTO W/O SCOPE 51803 Protein neg DateTime(Free Text in Aprima) URINALYSIS NONAUTO W/O SCOPE 48133 Blood neg DateTime(Free Text in Aprima) URINALYSIS NONAUTO W/O SCOPE 87400 Bilirubin neg DateTime(Free Text in Aprima) URINALYSIS NONAUTO W/O SCOPE 03922 Ketones neg DateTime(Free Text in Aprima) URINALYSIS NONAUTO W/O SCOPE 76956 Urobilinogen neg DateTime(Free Text in Aprima) URINALYSIS NONAUTO W/O SCOPE 40755 Nitrite neg DateTime(Free Text in Aprima) URINALYSIS NONAUTO W/O SCOPE 27033 Leukocytes trace DateTime(Free Text in Aprima) URINALYSIS NONAUTO W/O SCOPE 82327 Specific [place] 1.005 DateTime(Free Text in Aprima) URINALYSIS NONAUTO W/O SCOPE 23699 PH 5 DateTime(Free Text in Aprima) URINALYSIS NONAUTO W/O SCOPE 53168 GLUCOSE neg DateTime(Free Text in Aprima) URINALYSIS NONAUTO W/O SCOPE 17702 Protein neg DateTime(Free Text in Aprima) URINALYSIS NONAUTO W/O SCOPE 71785 Blood neg DateTime(Free Text in Aprima) URINALYSIS NONAUTO W/O SCOPE 98624 Bilirubin neg DateTime(Free Text in Aprima) URINALYSIS NONAUTO W/O SCOPE 42223 Ketones neg DateTime(Free Text in Aprima) URINALYSIS NONAUTO W/O SCOPE 62647 Urobilinogen neg DateTime(Free Text in Aprima) URINALYSIS NONAUTO W/O SCOPE 96278 Nitrite neg DateTime(Free Text in Aprima) URINALYSIS NONAUTO W/O SCOPE 48231 Leukocytes neg DateTime(Free Text in Aprima) UA 08814 Specific [place] 1.030 DateTime(Free Text in Aprima) UA 72221 PH 5 DateTime(Free Text in Aprima) UA 47982 GLUCOSE neg DateTime(Free Text in Aprima) UA 36358 Protein trace DateTime(Free Text in Aprima) UA 60460 Blood large DateTime(Free Text in Aprima) UA 10288 Bilirubin neg DateTime(Free Text in Aprima) UA 97264 Ketones neg DateTime(Free Text in Aprima) UA 92987 Urobilinogen neg DateTime(Free Text in Aprima) UA 06489 Nitrite neg DateTime(Free Text in Aprima) UA 84381 Leukocytes large DateTime(Free Text in Apr) Review of Systems System Result Effective Dates Constitutional No recent illness 07/16/2018 Constitutional No [...] distress 09/23/2014 None Full Exam - General 1995 Constitutional general appearance Overall: well nourished 09/23/2014 [...] accomodation 11/21/2013 None Full Exam - General 1995 Respiratory [...] station 09/19/2013 None Full Exam - General 1995 Neurologic gait Overall: no ataxia, no unsteadiness 09/19/2013 None Full Exam - General 1994 Neurologic cranial nerves Overall: crainial nerves 2 - 12 grossly intact 09/19/2013 None Full Exam - General 1995 Psychiatric orientation/consciousness Overall: oriented to person, place and time 09/19/2013 None Full Exam - General 1995 Psychiatric mood and affect Overall: normal mood and affect 09/19/2013 None Full Exam - General 1995 [...] 12/03/2012 None Full Exam - General 1995 Lymphatic [...] Codes Date URINALYSIS NONAUTO W/O SCOPE CPT-4: 26536 07/10/2018 TRIAMCINOLONE ACET INJ NOS CPT-4: J3301 05/28/2018 ROCEPHIN, PER 250 MG CPT- 4: J0696 05/28/2018 ROCEPHIN, PER 250 MG CPT- 4: J0696 01/19/2018 TRIAMCINOLONE ACET INJ NOS CPT-4: J3301 01/19/2018 PPPS, SUBSEQ VISIT CPT- 4: G0439 11/23/2017 TRIAMCINOLONE ACET INJ NOS CPT-4: J3301 06/27/2017 THER/PROPH/DIAG INJ SC/IM CPT-4: 31630 04/20/2017 TRIAMCINOLONE ACET INJ NOS CPT-4: J3301 04/20/2017 TRIAMCINOLONE ACET INJ NOS CPT-4: J3301 03/14/2017 ROCEPHIN, PER 250 MG CPT- 4: J0696 03/14/2017 DESTRUCT PREMALG LESION CPT-4: 83198 12/05/2016 DESTRUCT PREMALG LES 2-14 CPT-4: 24269 12/05/2016 URINALYSIS NONAUTO W/O SCOPE CPT-4: 96338 11/28/2016 ROCEPHIN, PER 250 MG CPT- 4: J0696 11/28/2016 PPPS, SUBSEQ VISIT CPT- 4: G0439 11/07/2016 THER/PROPH/DIAG INJ SC/IM CPT-4: 50173 11/07/2016 TRIAMCINOLONE ACET INJ NOS CPT-4: J3301 11/07/2016 ROCEPHIN, PER 250 MG CPT- 4: J0696 11/07/2016 THER/PROPH/DIAG INJ SC/IM CPT-4: 34905 08/15/2016 TRIAMCINOLONE ACET INJ NOS CPT-4: J3301 08/15/2016 ROCEPHIN, PER 250 MG CPT- 4: J0696 08/15/2016 URINALYSIS NONAUTO W/O SCOPE CPT-4: 11970 05/05/2016 ROCEPHIN, PER 250 MG CPT- 4: J0696 12/07/2015 TRIAMCINOLONE ACET INJ NOS CPT-4: J3301 11/24/2015 ROCEPHIN, PER 250 MG CPT- 4: J0696 11/24/2015 THER/PROPH/DIAG INJ SC/IM CPT-4: 62176 11/24/2015 THER/PROPH/DIAG INJ SC/IM CPT-4: 22532 08/27/2015 KETOROLAC TROMETHAMINE INJ CPT-4: J1885 08/27/2015 PROMETHAZINE HCL INJECTION CPT-4: J2550 08/27/2015 THER/PROPH/DIAG INJ SC/IM CPT-4: 52024 08/10/2015 TRIAMCINOLONE ACET INJ NOS CPT-4: J3301 08/10/2015 ROCEPHIN, PER 250 MG CPT- 4: J0696 08/10/2015 C WOUN RTS (CULTURE OTHR SPECIMN AEROBIC) CPT-4: 78216 07/28/2015 THER/PROPH/DIAG INJ SC/IM CPT-4: 83516 03/19/2015 TRIAMCINOLONE ACET INJ NOS CPT-4: J3301 03/19/2015 ROCEPHIN, PER 250 MG CPT- 4: J0696 06/23/2014 TRIAMCINOLONE ACET INJ NOS CPT-4: J3301 06/23/2014 INJ TRIGGER POINT 1/2 MUSCL CPT-4: 52885 06/05/2014 URINALYSIS NONAUTO W/O SCOPE CPT-4: 57845 02/11/2014 URINALYSIS NONAUTO W/O SCOPE CPT-4: 10437 10/15/2013 ROCEPHIN, PER 250 MG CPT- 4: J0696 09/24/2013 THER/PROPH/DIAG INJ SC/IM CPT-4: 92798 09/19/2013 ROCEPHIN, PER 250 MG CPT- 4: J0696 09/19/2013 PRESCRIP TRANSMIT VIA ERX SY CPT-4: G8553 08/05/2013 ROCEPHIN, PER 250 MG CPT- 4: J0696 07/10/2013 THER/PROPH/DIAG INJ SC/IM CPT-4: 81849 07/10/2013 TRIAMCINOLONE ACET INJ NOS CPT-4: J3301 07/10/2013 PRESCRIP TRANSMIT VIA ERX SY CPT-4: G8553 07/10/2013 [id number] EST. PATIENT, LEVEL III CPT-4: 44978 06/03/2013 PRESCRIP TRANSMIT VIA ERX SY CPT-4: G8553 06/03/2013 PRESCRIP TRANSMIT VIA ERX SY CPT-4: G8553 05/07/2013 ROUTINE VENIPUNCTURE CPT- 4: 26843 04/30/2013 ROUTINE VENIPUNCTURE CPT- 4: 69056 11/29/2012 TRIAMCINOLONE ACET INJ NOS CPT-4: J3301 09/24/2012 THER/PROPH/DIAG INJ SC/IM CPT-4: 74780 09/24/2012 URINALYSIS NONAUTO W/O SCOPE CPT-4: 90426 09/24/2012 PRESCRIP TRANSMIT VIA ERX SY CPT-4: G8553 09/24/2012 PRESCRIP TRANSMIT VIA ERX SY CPT-4: G8553 09/10/2012 PRESCRIP TRANSMIT VIA ERX SY CPT-4: G8553 08/08/2012 ROUTINE VENIPUNCTURE CPT- 4: 62641 08/07/2012 ROUTINE VENIPUNCTURE CPT- 4: 39933 02/16/2012 URINALYSIS NONAUTO W/O SCOPE CPT-4: 28175 02/15/2012 ROCEPHIN, PER 250 MG CPT- 4: J0696 02/15/2012 PRESCRIP TRANSMIT VIA ERX SY CPT-4: G8553 02/15/2012 ROUTINE VENIPUNCTURE CPT- 4: 05127 11/08/2011 ROCEPHIN, PER 250 MG CPT- 4: J0696 07/14/2011 THER/PROPH/DIAG INJ SC/IM CPT-4: 25820 07/14/2011 Influenza Virus Vaccine, Split Virus, >3 Yrs, IM CPT-4: 07637 05/23/2011 IMMUNIZATION ADMIN CPT- 4: 65177 05/23/2011 THER/PROPH/DIAG INJ SC/IM CPT-4: 16663 05/03/2011 ROCEPHIN, PER 250 MG CPT- 4: J0696 05/03/2011 TRIAMCINOLONE ACET INJ NOS CPT-4: J3301 05/03/2011 Vital Signs Date Vital 07/16/2018 Blood Pressure 1: 142/80 Code: 8480-6 BMI: 31.1 Code: 36152-0 Heart Rate 1: 78 bpm Height: 4'11" SpO2: 98% Weight: 154 lbs 07/10/2018 Blood Pressure 1: 156/82 Code: 8480-6 BMI: 31.1 Code: 68821-9 Heart Rate 1: 63 bpm Height: 4'11" SpO2: 99% Weight: 154 lbs 05/28/2018 Blood Pressure 1: 142/80 Code: 8480-6 Heart Rate 1: 82 bpm Height: SpO2: 97% Temperature: 35.9 (C) / 96.6 (F) Weight: 02/07/2018 Height: Weight: 01/19/2018 Blood Pressure 1: 128/76 Code: 8480-6 BMI: 31.2 Code: 00390-5 Heart Rate 1: 71 bpm Height: 4'11" SpO2: 96% Temperature: 36.5 (C) / 97.7 (F) Weight: 154 lbs 8 oz 11/23/2017 Blood Pressure 1: 146/80 Code: 8480-6 BMI: 31.7 Code: 88010-7 Heart Rate 1: 64 bpm Height: 4'11" SpO2: 97% Waist Measure (cm): 89 cm Weight: 157 lbs 09/12/2017 Blood Pressure 1: 140/86 Code: 8480-6 Heart Rate 1: 62 bpm SpO2: 96% Temperature: 36.6 (C) / 97.8 (F) Weight: 153 lbs 07/25/2017 Blood Pressure 1: 140/72 Code: 8480-6 BMI: 31.3 Code: 25149-0 Heart Rate 1: 76 bpm Height: 4'11" SpO2: 97% Temperature: 37.2 (C) / 99.0 (F) Weight: 155 lbs 06/27/2017 Blood Pressure 1: 144/84 Code: 8480-6 BMI: 31.1 Code: 53850-0 Heart Rate 1: 63 bpm Height: 4'11" SpO2: 99% Temperature: 36.4 (C) / 97.6 (F) Weight: 154 lbs 05/08/2017 Blood Pressure 1: 142/86 Code: 8480-6 BMI: 30.9 Code: 35623-4 Height: 4'11" Temperature: 36.3 (C) / 97.4 (F) Weight: 153 lbs 03/14/2017 Blood Pressure 1: 146/82 Code: 8480-6 BMI: 30.9 Code: 96657-5 Heart Rate 1: 64 bpm Height: 4'11" SpO2: 94% Weight: 153 lbs 02/20/2017 Blood Pressure 1: 142/80 Code: 8480-6 BMI: 30.9 Code: 44434-6 Heart Rate 1: 75 bpm Height: 4'11" SpO2: 97% Weight: 153 lbs 02/06/2017 Blood Pressure 1: 138/90 Code: 8480-6 BMI: 31.5 Code: 31805-2 Heart Rate 1: 61 bpm Height: 4'11" SpO2: 98% Weight: 156 lbs 12/05/2016 Blood Pressure 1: 122/72 Code: 8480-6 Heart Rate 1: 59 bpm Height: 4'11" SpO2: 98% Weight: 11/28/2016 Blood Pressure 1: 154/86 Code: 8480-6 BMI: 31.3 Code: 15191-0 Heart Rate 1: 64 bpm Height: 4'11" SpO2: 94% Temperature: 36.2 (C) / 97.2 (F) Weight: 155 lbs 11/07/2016 Blood Pressure 1: 128/64 Code: 8480-6 BMI: 31.5 Code: 49799-0 Heart Rate 1: 59 bpm Height: 4'11" SpO2: 97% Weight: 156 lbs 08/15/2016 Blood Pressure 1: 110/62 Code: 8480-6 BMI: 31.5 Code: 62963-1 Heart Rate 1: 76 bpm Height: 4'11" SpO2: 97% Weight: 156 lbs 06/07/2016 Blood Pressure 1: 120/80 Code: 8480-6 BMI: 32.9 Code: 22969-2 Heart Rate 1: 63 bpm Height: 4'11" SpO2: 93% Temperature: 36.5 (C) / 97.7 (F) Weight: 163 lbs 03/15/2016 Blood Pressure 1: 90/42 Code: 8480-6 Heart Rate 1: 65 bpm SpO2: 94% 03/14/2016 Blood Pressure 1: 188/110 Code: 8480-6 Heart Rate 1: 68 bpm SpO2: 96% 02/22/2016 Blood Pressure 1: 158/80 Code: 8480-6 BMI: 32.7 Code: 38668-6 Heart Rate 1: 71 bpm Height: 4'11" SpO2: 95% Weight: 162 lbs 12/07/2015 Blood Pressure 1: 140/88 Code: 8480-6 BMI: 32.9 Code: 78489-5 Heart Rate 1: 99 bpm Height: 4'11" SpO2: 94% Temperature: 35.9 (C) / 96.6 (F) Weight: 163 lbs 11/24/2015 Blood Pressure 1: 144/78 Code: 8480-6 BMI: 33.7 Code: 08913-4 Heart Rate 1: 60 bpm Height: 4'11" SpO2: 98% Temperature: 36.6 (C) / 97.9 (F) Weight: 167 lbs 08/27/2015 Blood Pressure 1: 164/82 Code: 8480-6 BMI: 32.3 Code: 10629-9 Heart Rate 1: 60 bpm Height: 4'11" SpO2: 93% Weight: 160 lbs 08/10/2015 Blood Pressure 1: 130/60 Code: 8480-6 BMI: 32.5 Code: 12884-0 Heart Rate 1: 64 bpm Height: 4'11" SpO2: 97% Weight: 161 lbs 07/28/2015 Blood Pressure 1: 124/68 Code: 8480-6 BMI: 32.5 Code: 62128-7 Heart Rate 1: 69 bpm Height: 4'11" SpO2: 97% Weight: 161 lbs 06/11/2015 Blood Pressure 1: 148/80 Code: 8480-6 BMI: 32.9 Code: 09049-4 Heart Rate 1: 70 bpm Height: 4'11" SpO2: 94% Weight: 163 lbs 03/19/2015 Blood Pressure 1: 150/102 Code: 8480-6 Blood Pressure 2: 152/92 Code: 8480-6 BMI: 32.5 Code: 26868-4 Heart Rate 1: 71 bpm Height: 4'11" SpO2: 96% Weight: 161 lbs 01/07/2015 Blood Pressure 1: 126/84 Code: 8480-6 Heart Rate 1: 80 bpm Height: 4'11" 09/23/2014 Blood Pressure 1: 112/72 Code: 8480-6 BMI: 33.9 Code: 66833-2 Heart Rate 1: 72 bpm Height: 4'11" Weight: 168 lbs 08/05/2014 Blood Pressure 1: 140/86 Code: 8480-6 BMI: 33.3 Code: 63304-1 Height: 4'11" Weight: 165 lbs 06/23/2014 Blood Pressure 1: 132/70 Code: 8480-6 BMI: 32.9 Code: 07087-7 Heart Rate 1: 58 bpm Height: 4'11" Temperature: 36.0 (C) / 96.8 (F) Weight: 163 lbs 06/05/2014 Blood Pressure 1: 121/85 Code: 8480-6 BMI: 34.3 Code: 54566-1 Height: 4'11" Weight: 170 lbs 04/03/2014 Blood Pressure 1: 128/80 Code: 8480-6 Heart Rate 1: 88 bpm Weight: 167 lbs 03/07/2014 Blood Pressure 1: 122/82 Code: 8480-6 BMI: 33.9 Code: 12673-7 Heart Rate 1: 68 bpm Height: 4'11" Weight: 168 lbs 11/21/2013 Blood Pressure 1: 100/58 Code: 8480-6 BMI: 33.7 Code: 55205-2 Heart Rate 1: 64 bpm Height: 4'11" Weight: 167 lbs 09/24/2013 Blood Pressure 1: 148/88 Code: 8480-6 Heart Rate 1: 68 bpm Weight: 09/19/2013 Blood Pressure 1: 120/80 Code: 8480-6 BMI: 33.9 Code: 13066-6 Heart Rate 1: 80 bpm Height: 4'11" Temperature: 36.9 (C) / 98.5 (F) Weight: 168 lbs 08/05/2013 Blood Pressure 1: 128/80 Code: 8480-6 BMI: 34.3 Code: 76982-0 Heart Rate 1: 64 bpm Height: 4'11" Temperature: 36.2 (C) / 97.2 (F) Weight: 170 lbs 07/10/2013 Blood Pressure 1: 120/84 Code: 8480-6 BMI: 36.0 Code: 40558-3 Heart Rate 1: 90 bpm Height: 4'11" SpO2: 97% Temperature: 36.8 (C) / 98.2 (F) Weight: 178 lbs 06/03/2013 Blood Pressure 1: 136/94 Code: 8480-6 BMI: 34.7 Code: 48631-3 Heart Rate 1: 68 bpm Height: 4'11" Temperature: 36.7 (C) / 98.0 (F) Weight: 172 lbs 05/13/2013 Blood Pressure 1: 132/90 Code: 8480-6 Heart Rate 1: 68 bpm 05/07/2013 Blood Pressure 1: 168/100 Code: 8480-6 BMI: 34.3 Code: 13088-0 Heart Rate 1: 76 bpm Height: 4'11" Weight: 170 lbs 12/03/2012 Blood Pressure 1: 142/78 Code: 8480-6 BMI: 33.5 Code: 36730-1 Heart Rate 1: 76 bpm Height: 4'11" Weight: 166 lbs 09/24/2012 Blood Pressure 1: 116/70 Code: 8480-6 Heart Rate 1: 68 bpm Respiratory Rate: 16 bpm Temperature: 36.9 (C) / 98.4 (F) Weight: 162 lbs 09/10/2012 Blood Pressure 1: 116/80 Code: 8480-6 BMI: 33.7 Code: 68539-7 Heart Rate 1: 76 bpm Height: 4'11" [...] 1: 149/85 Code: 8480-6 BMI: 32.9 Code: 65791-9 Heart Rate 1: 79 bpm Height: 4'11" Weight: 164 lbs 05/03/2011 Blood Pressure 1: 122/79 Code: 8480-6 BMI: 30.8 Code: 76098-2 Heart Rate 1: 72 bpm Height: 5'1" Weight: 163 lbs 04/25/2011 Blood Pressure 1: 137/84 Code: 8480-6 BMI: 31.0 Code: 13099-3 Heart Rate 1: 63 bpm Height: 5'1" Respiratory Rate: 20 bpm Weight: 164 lbs Functional Status No Functional Status data History of Present Illness Symptom Name Status Result Effective Date Notes hypertension Quality intermittent 07/16/2018 None hypertension Onset [...] surg in december. then took trip to [facility] to see mother and has had [...] Quality chronic 08/01/2011 states went shopping on [employer] over night without taking any of medications [...] Codes Date EST. PATIENT, LEVEL III Diagnosis: Essential (primary) hypertension[ICD10: I10] Diagnosis: Generalized anxiety disorder[ICD10: F41.1] Isabelle Goldman MD, [facility] CPT-4: 23777 07/16/2018 ([id number] EST. PATIENT, LEVEL III Diagnosis: Acute recurrent maxillary sinusitis[ICD10: J01.01] Diagnosis: Frequency of micturition[ICD10: R35.0] Diagnosis: Low back pain[ICD10: M54.5] Shahida Goldman MD, [facility] CPT-4: 83966 07/10/2018 [id number]) 98764 EST. PATIENT, LEVEL III Diagnosis: Acute recurrent maxillary sinusitis[ICD10: J01.01] Shahida Goldman MD, [facility] CPT-4: 63761 05/28/2018 ([id number]) Miscellaneous no charge Diagnosis: Laceration without foreign body, left lower leg, subsequent encounter[ICD10: S81.812D] Diagnosis: Laceration without foreign body, right lower leg, subsequent encounter[ICD10: S81.811D] Isabelle Goldman MD, [facility] CPT-4: 97235 02/08/2018 36891 EST. PATIENT, LEVEL III Diagnosis: Cellulitis of left lower limb[ICD10: L03.116] Diagnosis: Cellulitis of right lower limb[ICD10: L03.115] Diagnosis: Laceration without foreign body, left lower leg, initial encounter[ICD10: S81.812A] Diagnosis: Laceration without foreign body, right lower leg, initial encounter[ICD10: S81.811A] Isabelle Goldman MD, [facility] CPT-4: 56984 02/07/2018 ([id number]) 63167 EST. PATIENT, LEVEL IV Diagnosis: Primary generalized (osteo)arthritis[ICD10: M15.0] Diagnosis: Acute recurrent maxillary sinusitis[ICD10: J01.01] Diagnosis: Low back pain[ICD10: M54.5] Diagnosis: Other allergic rhinitis[ICD10: J30.89] Diagnosis: Obstructive sleep apnea (adult) (pediatric)[ICD10: G47.33] Shahida Goldman MD, [facility] CPT-4: 06859 01/19/2018 14988 EST. PATIENT, LEVEL IV Diagnosis: Diarrhea, unspecified[ICD10: R19.7] Diagnosis: Generalized abdominal pain[ICD10: R10.84] Diagnosis: Other allergic rhinitis[ICD10: J30.89] Diagnosis: Other acute sinusitis[ICD10: J01.80] Isabelle Goldman MD, [facility] CPT- 4: 46685 09/12/2017 [id number] EST. PATIENT, LEVEL III Diagnosis: Acute laryngopharyngitis[ICD10: J06.0] Diagnosis: Other allergic rhinitis[ICD10: J30.89] Diagnosis: Cough[ICD10: R05] Diagnosis: Wheezing[ICD10: R06.2] Isabelle Goldman MD, [facility] CPT-4: 27367 07/25/2017 ([id number]) 83817 EST. PATIENT, LEVEL IV Diagnosis: Acute recurrent maxillary sinusitis[ICD10: J01.01] Diagnosis: Cervicalgia[ICD10: M54.2] Diagnosis: Diarrhea, unspecified[ICD10: R19.7] Shahida Goldman MD, [facility] CPT-4: 04808 06/27/2017 ([id number]) 32497 EST. PATIENT, LEVEL III Diagnosis: Chronic maxillary sinusitis[ICD10: J32.0] Diagnosis: Gastro-esophageal reflux disease without esophagitis[ICD10: K21.9] Shahida Goldman MD, [facility] CPT-4: 48936 05/08/2017 ([id number]) 52017 EST. PATIENT, LEVEL III Diagnosis: Acute recurrent maxillary sinusitis[ICD10: J01.01] Shahida Goldman MD, [facility] CPT-4: 66282 03/14/2017 12769 EST. PATIENT, LEVEL IV Diagnosis: Epigastric pain[ICD10: R10.13] Diagnosis: Left upper quadrant pain[ICD10: R10.12] Diagnosis: Left lower quadrant pain[ICD10: R10.32] Isabelle Goldman MD, [facility] CPT-4: 70657 02/20/2017 ([id number]) 34518 EST. PATIENT, LEVEL IV Diagnosis: Generalized anxiety disorder[ICD10: F41.1] Diagnosis: Major depressive disorder, recurrent, moderate[ICD10: F33.1] Diagnosis: Left upper quadrant pain[ICD10: R10.12] Diagnosis: Epigastric pain[ICD10: R10.13] Diagnosis: Actinic keratosis[ICD10: L57.0] Melba Goldman MD, [facility] CPT-4: 03473 02/06/2017 ([id number]) 72130 EST. PATIENT, LEVEL III Diagnosis: Actinic keratosis[ICD10: L57.0] Diagnosis: Major depressive disorder, recurrent, moderate[ICD10: F33.1] Melba Goldman MD, [facility] CPT-4: 79820 12/05/2016 ([id number]) 44491 EST. PATIENT, LEVEL III Diagnosis: Acute recurrent maxillary sinusitis[ICD10: J01.01] Diagnosis: Dysuria[ICD10: R30.0] Shahida Goldman MD, [facility] CPT-4: 46530 11/28/2016 03745 EST. PATIENT, LEVEL IV Diagnosis: Other acute sinusitis[ICD10: J01.80] Diagnosis: Acute laryngopharyngitis[ICD10: J06.0] Diagnosis: Other allergic rhinitis[ICD10: J30.89] Isabelle Goldman MD, [facility] CPT- 4: 53004 08/15/2016 ([id number]) 80878 EST. PATIENT, LEVEL III Diagnosis: Acute recurrent maxillary sinusitis[ICD10: J01.01] Diagnosis: Low back pain[ICD10: M54.5] Shahida Goldman MD, [facility] CPT-4: 76798 06/07/2016 ([id number]) Miscellaneous no charge Diagnosis: Essential (primary) hypertension[ICD10: I10] Shahida Goldman MD, [facility] CPT-4: 75927 03/15/2016 66358 EST. PATIENT, LEVEL IV Diagnosis: Essential (primary) hypertension[ICD10: I10] Diagnosis: Headache[ICD10: R51] Diagnosis: Generalized anxiety disorder[ICD10: F41.1] Shahida Goldman MD, [facility] CPT-4: 10557 03/14/2016 38954 EST. PATIENT, LEVEL III Diagnosis: Laceration without foreign body, left lower leg, initial encounter[ICD10: S81.812A] Isabelle Goldman MD, [facility] CPT-4: 77371 02/22/2016 ([id number]) 47198 EST. PATIENT, LEVEL III Diagnosis: Acute recurrent maxillary sinusitis[ICD10: J01.01] Diagnosis: Cough[ICD10: R05] Diagnosis: Allergic rhinitis due to pollen[ICD10: J30.1] Shahida Goldman MD, [facility] CPT-4: 59101 12/07/2015 ([id number]) 30837 EST. PATIENT, LEVEL IV Diagnosis: Essential (primary) hypertension[ICD10: I10] Diagnosis: Acute recurrent maxillary sinusitis[ICD10: J01.01] Diagnosis: Generalized anxiety disorder[ICD10: F41.1] Diagnosis: Cervicalgia[ICD10: M54.2] Diagnosis: Generalized intra-abdominal and pelvic swelling, mass and lump[ICD10: R19.07] Melba Goldman MD, [facility] CPT-4: 78486 11/24/2015 60264 EST. PATIENT, LEVEL III Diagnosis: Other migraine, intractable, without status migrainosus[ICD10: G43.819] Isabelle Goldman MD, [facility] CPT-4: 86769 08/27/2015 95202 EST. PATIENT, LEVEL III Diagnosis: Acute recurrent maxillary sinusitis[ICD10: J01.01] Diagnosis: Candidal stomatitis[ICD10: B37.0] Diagnosis: Acute laryngopharyngitis[ICD10: J06.0] Isabelle Goldman MD, [facility] CPT- 4: 66753 08/10/2015 51198 EST. PATIENT, LEVEL III Diagnosis: Superficial foreign body of left hand, initial encounter[ICD10: S60.552A] Melba Goldman MD, [facility] CPT-4: 75092 07/28/2015 ([id number]) 67075 EST. PATIENT, LEVEL III Diagnosis: Essential (primary) hypertension[ICD10: I10] Diagnosis: Tinea cruris[ICD10: B35.6] Diagnosis: Abnormal levels of other serum enzymes[ICD10: R74.8] Shahida Goldman MD, [facility] CPT-4: 71931 06/11/2015 ([id number]) 43995 EST. PATIENT, LEVEL IV Diagnosis: ESSENTIAL HYPERTENSION[ICD9: 401.9] Diagnosis: Hypothyroid[ICD9: 244.9] Diagnosis: ALLERGIC RHINITIS[ICD9: 477.9] Diagnosis: Anxiety[ICD9: 300.00] Diagnosis: Sleep apnea[ICD9: 780.57] Shahida Goldman MD, [facility] CPT-4: 72113 03/19/2015 ([id number]) 24362 EST. PATIENT, LEVEL III Diagnosis: ACUTE SINUSITIS[ICD9: 461.9] Celi Goldman MD, [facility] CPT-4: 51703 01/07/2015 ([id number]) 23635 EST. PATIENT, LEVEL III Diagnosis: Conjunctivitis[ICD9: 372.30] Shahida Goldman MD, [facility] CPT-4: 77914 09/23/2014 57540 EST. PATIENT, LEVEL II Diagnosis: Noninfected skin tear of leg[ICD9: 891.0] Shahida Goldman MD, [facility] CPT-4: 76583 08/05/2014 ([id number]) 16888 EST. PATIENT, LEVEL III Diagnosis: Chronic maxillary sinusitis[ICD9: 473.0] Shahida Goldman MD, [facility] CPT-4: 28178 06/23/2014 68801 EST. PATIENT, LEVEL II Diagnosis: Headache[ICD9: 784.0] Shahida Goldman MD, [facility] CPT-4: 90257 06/05/2014 ([id number]) 85283 EST. PATIENT, LEVEL III Diagnosis: Abrasion of right leg[ICD9: 916.0] Diagnosis: Headache[ICD9: 784.0] Diagnosis: ALLERGIC RHINITIS[ICD9: 477.9] Shahida Goldman MD, [facility] CPT-4: 23187 04/03/2014 53080 EST. PATIENT, LEVEL II Diagnosis: Tinea corporis[ICD9: 110.5] Diagnosis: Exposure to scabies[ICD9: V01.89] Shahida Goldman MD, [facility] CPT- 4: 91311 03/07/2014 ([id number]) 99127 EST. PATIENT, LEVEL III Diagnosis: ESSENTIAL HYPERTENSION[SNOMED: 56869258] Diagnosis: OSTEOARTH NOS-UNSPEC[ICD9: 715.90] Diagnosis: Lumbago[ICD9: 724.2] Diagnosis: Cervicalgia[ICD9: 723.1] Shahida Goldman MD, [facility] CPT-4: 19257 11/21/2013 ([id number]) 95668 EST. PATIENT, LEVEL III Diagnosis: DEPRESSIVE DISORDER NEC[ICD9: 311] Diagnosis: Paronychia[ICD9: 681.9] Melba Goldman MD, [facility] CPT-4: 83858 09/24/2013 ([id number]) 21183 EST. PATIENT, LEVEL III Diagnosis: Paronychia[ICD9: 681.9] Diagnosis: Cellulitis[ICD9: 682.9] Melba Goldman MD, [facility] CPT-4: 75208 09/19/2013 ([id number]) 27859 EST. PATIENT, LEVEL III Diagnosis: Conjunctivitis[ICD9: 372.30] Diagnosis: Thrush[ICD9: 112.0] Shahida Goldman MD, [facility] CPT-4: 01956 08/05/2013 ([id number]) 83574 EST. PATIENT, LEVEL III Diagnosis: ACUTE MAXILLARY SINUSITIS[ICD9: 461.0] Diagnosis: COUGH[ICD9: 786.2] Diagnosis: Insomnia[ICD9: 780.52] Diagnosis: ESOPHAGEAL REFLUX[ICD9: 530.81] Melba Goldman MD, [facility] CPT-4: 65531 07/10/2013 ([id number]) Miscellaneous no charge Diagnosis: ESSENTIAL HYPERTENSION[SNOMED: 96975608] Melba Goldman MD, [facility] CPT-4: 34927 05/13/2013 ([id number]) 56990 EST. PATIENT, LEVEL IV Diagnosis: ESSENTIAL HYPERTENSION[SNOMED: 32317819] Diagnosis: HYPOTHYROIDISM[ICD9: 244.9] Diagnosis: OSTEOARTH NOS-UNSPEC[ICD9: 715.90] Melba Goldman MD [facility] CPT- 4: 41499 05/07/2013 ([id number]) 83084 EST. PATIENT, LEVEL IV Diagnosis: Osteoarthritis[ICD9: 715.90] Diagnosis: Knee pain, bilateral[ICD9: 719.46] Diagnosis: Hip pain[ICD9: 719.45] Melba Goldman MD [facility] CPT-4: 87822 12/03/2012 ([id number]) 70404 EST. PATIENT, LEVEL III Diagnosis: Thrush[ICD9: 112.0] Melba Goldman MD [facility] CPT-4: 01140 09/24/2012 ([id number]) 10793 EST. PATIENT, LEVEL IV Diagnosis: ESSENTIAL HYPERTENSION[SNOMED: 08250076] Diagnosis: Thrush[ICD9: 112.0] Diagnosis: Sleep apnea[ICD9: 780.57] Melba Goldman MD [facility] CPT-4: 79533 09/10/2012 ([id number]) 66261 EST. PATIENT, LEVEL IV Diagnosis: Esophageal reflux[ICD9: 530.81] Diagnosis: Hypothyroid[ICD9: 244.9] Diagnosis: JOINT PAIN-MULT JOINTS[ICD9: 719.49] Diagnosis: ALLERGIC RHINITIS[ICD9: 477.9] Melba Goldman MD [facility] CPT-4: 03112 08/08/2012 ([id number]) 70450 EST. PATIENT, LEVEL IV Diagnosis: Urinary frequency[ICD9: 788.41] Diagnosis: EDEMA[ICD9: 782.3] Diagnosis: HYPOTHYROIDISM[ICD9: 244.9] Diagnosis: Fatigue[ICD9: 780.79] Melba Goldman MD [facility] CPT-4: 93883 02/15/2012 ([id number]) 05212 EST. PATIENT, LEVEL IV Diagnosis: Abdominal pain[ICD9: 789.00] Diagnosis: Fatigue[ICD9: 780.79] Diagnosis: Nausea[ICD9: 787.02] Melba Goldman MD [facility] CPT-4: 82268 11/10/2011 89408 EST. PATIENT, LEVEL IV Diagnosis: ESSENTIAL HYPERTENSION[SNOMED: 06796959] Diagnosis: DIARRHEA[ICD9: 787.91] Diagnosis: DEPRESSIVE DISORDER NEC[ICD9: 311] Diagnosis: Irritable bowel disease[ICD9: 564.1] Melba Goldman MD, [facility] CPT- 4: 30210 08/01/2011 07477 EST. PATIENT, LEVEL III Diagnosis: ACUTE SINUSITIS[ICD9: 461.9] Diagnosis: Cough[ICD9: 786.2] Shahida Goldman MD, [facility] CPT-4: 59818 07/14/2011 69585 EST. PATIENT, LEVEL IV Diagnosis: VACCIN FOR INFLUENZA[ICD9: V04.81] Diagnosis: ESSENTIAL HYPERTENSION[SNOMED: 69586092] Diagnosis: GENERALIZED ANXIETY DISEASE[ICD9: 300.02] Diagnosis: SLEEP DISTURBANCES[ICD9: 780.50] Shahida Goldman MD, [facility] CPT- 4: 07635 05/23/2011 42940 EST. PATIENT, LEVEL III Diagnosis: ACUTE SINUSITIS[ICD9: 461.9] Diagnosis: ALLERGIC RHINITIS[ICD9: 477.9] Diagnosis: Cough[ICD9: 786.2] Shahida Goldman MD, [facility] CPT-4: 95872 05/03/2011 04821 EST. PATIENT, LEVEL IV Diagnosis: ESSENTIAL HYPERTENSION[SNOMED: 78678646] Diagnosis: DEPRESSIVE DISORDER NEC[ICD9: 311] Diagnosis: Fatigue[ICD9: 780.79] Shahida Goldman MD, [facility] CPT-4: 52306 04/25/2011 Plan of Care Planned Activity Notes Codes Status Date Appointment: Isabelle Orozco WPtel: [facility]5 [phone] (15 min) Moderate 07/30/2018 Visit [...] concerns. 07/16/2018 Appointment: Isabelle Orozco WPtel: [phone] [phone] (15 min) Moderate 07/16/2018 Patient Education: [...] of over-medication. 07/10/2018 Appointment: Shahida Manzo WPtel: [phone] [phone] (15 min) Moderate 07/10/2018 Patient Education: Patient Medication Summary Completed 07/10/2018 Patient Education: Back Pain Completed 07/10/2018 Visit Plan: Sinusitis - Pt has acute infection - pain in face, maxillary region, Pt informed to use decongestant, RX given to patient, sinus rinses also recommended. Call if symptoms do not show improvement. 05/28/2018 Appointment: Shahida Manzo WPtel: [phone] [phone] (30 min) Complex 05/28/2018 Patient Education: [...] acute concerns. 02/07/2018 Appointment: Isabelle Orozco WPtel: [address] [place], [place] [id number] (15 min) Moderate 02/07/2018 Patient Education: Patient [...] less fatigue 01/19/2018 Appointment: Shahida Manzo WPtel: [facility]9 [facility] [place] [address] (15 min) Moderate 01/19/2018 Patient Education: Patient [...] care surrogate. 11/23/2017 Appointment: Isabelle Orozco WPtel: [facility]6 [facility] [place] [address] - Annual Wellness Visit 11/23/2017 Patient Education: [...] show improvement. 09/12/2017 Appointment: Isabelle Orozco WPtel: [facility]5 [facility] (15 min) Moderate 09/12/2017 Patient [...] allergy spray. 07/25/2017 [phone] ([facility] min) Complex 07/25/2017 Patient Education: Patient [...] are available 06/27/2017 Appointment: Shahida Manzo WPtel: [facility]4 [phone] (15 min) Moderate 06/27/2017 Patient [...] not improving. 05/08/2017 Appointment: Shahida Manzo WPtel: [facility]9 [phone] (15 min) Moderate 05/08/2017 Patient Education: Patient [...] show improvement. 03/14/2017 Appointment: Shahida Manzo WPtel: [facility]0 [phone] (15 min) Moderate 03/14/2017 Patient Education: Patient Medication Summary Completed 03/14/2017 Appointment: Shahida Manzo WPtel: [phone] [phone] [place] (15 min) Moderate 02/21/2017 [...] not improving. 02/20/2017 Appointment: Isabelle Orozco WPtel: [facility] (30 min) Complex 02/20/2017 Patient Education: [...] on use 02/06/2017 Appointment: Mel[facility] Goldman [facility] [place] (15 min) Moderate 02/06/2017 Patient Education: [...] patient. 12/05/2016 Appointment: Melba Goldman [facility]Ptel: [phone] [place] Surgical Procedure 12/05/2016 Patient Education: Patient Medication Summary Completed 12/05/2016 Visit Plan: Sinusitis - Pt has acute infection - pain in face, maxillary region, Pt informed to use decongestant, RX given to patient, sinus rinses also recommended. Call if symptoms do not show improvement. Dysuria- culture urine 11/28/2016 Appointment: Shah[phone] (15 min) Moderate 11/28/2016 Patient Education: Patient [...] control. 11/07/2016 Appointment: Isabelle Orozco WPtel: 101[address] [facility] [facility] - Annual Wellness [...] allergy spray. 08/15/2016 Appointment: Isabel[facility]rozco [facility]el[phone] (15 min) Moderate 08/15/2016 Patient Education: [...] pain use. 06/07/2016 Appointment: Shahida Manzo WPtel: [facility]5 [phone] (10 min) Simple 06/07/2016 Patient Education: [...] office today 03/14/2016 Appointment: Shahida Manzo WPtel: [facility]4 [phone] (15 min) Moderate 03/14/2016 Patient Education: Patient Medication Summary Completed 03/14/2016 Care Plan: COMPLETE CBC AUTOMATED LOINC : 45613-5 Pending 03/14/2016 Visit Plan: Cellulitis - The patient was instructed in appropriate wound care. The patient was instructed to use the antibiotic ointment as per RX. The patient is to call for any change in symptoms, increase in size of the lesion, increase in pain. 02/22/2016 Appointment: Isabelle Orozco WPtel: [facility] (15 min) Moderate 02/22/2016 Patient Education: [...] dr. dai 11/24/2015 Appointment: Melba Goldman WPtel: [address] [place], [place] [address] (30 min) [facility] 11/24/2015 Patient Education: Patient Medication Summary Completed 11/24/2015 Patient Education: Obesity Completed 11/24/2015 Patient Education: Hypertension Completed 11/24/2015 Patient Education: .Cervicalgia Neck Pain Completed 11/24/2015 Care Plan: Referral Order SNOMED-CT : [id number] Ordered 11/24/2015 Visit Plan: Acute Migraine - [...] to monitor 06/11/2015 Appointment: Shahida Manzo WPtel: [address] [place], [place] [phone] (15 min) Moderate 06/11/2015 Patient Education: Patient [...] apnea-patient needs new CPAP-will contact [facility] patient 03/19/2015 Visit Plan: Hypertension - [...] OFFICE Sleep apnea-patient needs new CPAP-will contact [facility] Pt reports that she uses her [...] OFFICE Sleep apnea-patient needs new CPAP-will contact [facility] Pt reports that she uses [...] Patient Medication Summary Completed 01/07/2015 Patient Education: [facility] - Saving AutoInj - 18+ - Dynamic [...] areas dry Exposure to scabies-RX sent to [facility]. 03/07/2014 Appointment: Melba Goldman WPtel: [phone] [facility] [place] [place] rash 03/07/2014 Patient Education: Patient Medication [...] change in blood pressure readings at home. Lhfbvbv-xckabqhmbel-wmnzccak duragesic patch-appt with Dr Ortiz for pain management 11/21/2013 Appointment: Shahida Manzo WPtel: [address] [place], [place] [phone] Follow up 11/21/2013 Patient Education: Patient Medication Summary Completed 11/21/2013 Patient Education: Hypertension Completed 11/21/2013 Patient Education: .Cervicalgia Neck Pain Completed 11/21/2013 Appointment: Melba Goldman WPtel: [facility]5 [facility] Other 11/19/2013 Appointment: Melba Goldman WPtel: [address] [place], [place] [phone] Follow up 11/06/2013 Appointment: Melba Goldman WPtel: [address] [place], [place] [phone] Lab Draw 10/15/2013 Patient Education: Patient Medication [...] AT BEDTIME 09/24/2013 Appointment: Shahida Manzo WPtel: [facility]5 [phone] Other 09/24/2013 Patient Education: Patient Medication Summary Completed 09/24/2013 Visit Plan: Paronychia/Cellulitis - continue with oral antibiotics as previously directed, return to clinic as previously directed, call for acute change in symptoms, worsening redness, warmth, discharge. 09/19/2013 Appointment: Melba Goldman WPtel: [phone] [facility] [place] [place] Other 09/19/2013 Patient Education: Patient Medication Summary Completed 09/19/2013 Visit Plan: Conjunctivitis - rx for eye drops/lube sent electronically to the patient's pharmacy. The patient has been instructed to cleanse affected eye with warm washcloth, then place medication into affected eye four times daily. Thrush-refill nystatin-call if symptoms do not resolve 08/05/2013 Appointment: Shahida [facility]zo [facility]Ptel[phone] [place] Sick 08/05/2013 Patient Education: Patient [...] improvement. 06/03/2013 Appointment: Melba Goldman WPtel: [phone] [place] Follow up 06/03/2013 Patient Education: Patient Medication Summary Completed 06/03/2013 Patient Education: Hypertension Completed 06/03/2013 Appointment: Melba Goldman WPtel: [phone] [facility] Nurse Visit 05/13/2013 Patient Education: Patient [...] control. 05/07/2013 Appointment: Melba Goldman WPtel: [phone] [place] Follow up 05/07/2013 Patient Education: Patient Medication Summary Completed 05/07/2013 Patient Education: Hypertension Completed 05/07/2013 Patient Education: Patient Medication Summary Completed 04/30/2013 Patient Education: Hypertension Completed 04/30/2013 Visit Plan: Arthritis- occasionally uncontrolled symptoms- recommend pt to take antiinflammatory as directed for pain control. Use tylenol for break through pain symptoms. 12/03/2012 Appointment: Melba Goldman WPtel: [phone] [facility] Follow up 12/03/2012 Patient Education: Patient [...] resolve 09/24/2012 Appointment: Shahida Manzo WPtel: 1015 [phone] [place] [address] 09/24/2012 Patient Education: Patient Medication Summary Completed [...] with diflucan 09/10/2012 Appointment: Melba Goldman WPtel: [facility]5 [facility] Follow up 09/10/2012 Patient Education: Patient [...] symptoms. 08/08/2012 Appointment: Shahida Manzo WPtel: [phone] [phone] [place] [address] Follow up 08/08/2012 Patient Education: Patient Medication Summary Completed 08/08/2012 Patient Education: Patient Medication Summary Completed 08/07/2012 Patient Education: Hypertension Completed 08/07/2012 Appointment: Melba Goldman WPtel: [facility]9 [address] Lab Draw 02/16/2012 Patient Education: Patient [...] labs. 02/15/2012 Appointment: Melba Goldman WPtel: [phone] [facility] [place] Other 02/15/2012 Patient Education: Patient Medication Summary Completed 02/15/2012 Visit Plan: Abdominal pain - ultrasound tomorrow AM nothing to eat before the ultrasound from 11pm tonight bland diet. Nausea - worse with fatty foods, recommended low fat/bland diet, call if symptoms worsening. 11/10/2011 Appointment: Melba Goldman WPtel: 101 [facility] Other 11/10/2011 Patient Education: Patient [...] stools. 08/01/2011 Appointment: Melba Goldman WPtel: [phone] [facility] Other 08/01/2011 Patient Education: Patient Medication Summary Completed 08/01/2011 Patient Education: High Blood Pressure: Essential Hypertension Completed 08/01/2011 Visit Plan: Sinusitis - Pt has acute infection - pain in face, maxillary region, Pt informed to use decongestant, RX given to patient, sinus rinses also recommended. Call if symptoms do not show improvement. Cough- kishore zurita 07/14/2011 Appointment: Shahida Manzo WPtel: [phone] [phone] Other 07/14/2011 Patient Education: Patient Medication [...] the office. 05/23/2011 Appointment: Shahida Manzo WPtel: [address] [place] [address] Other 05/23/2011 Patient Education: Patient Medication Summary [...] cough med 05/03/2011 Appointment: Shahida Manzo WPtel: [facility]1 [place] [phone] [place] Other 05/03/2011 Patient Education: Patient Medication [...] her symptoms. 04/25/2011 Appointment: Shahida Manzo WPtel: [address] [place] [phone] Other 04/25/2011 Patient Education: Patient Medication Summary Completed 04/25/2011 Referral: Matthew Dai Referral Appointment Requested Referral: Matthew Dai Information faxed to Dr. Dai. Their office to book. Patient informed. Completed Instructions Comment . Wound Instructions - Pt was instructed [...] been appropriately prescribed for this patient. . UTI - pt with positive urinalysis [...] part of her fatigue. Needs labs. . Paronychia/Cellulitis - continue with oral antibiotics [...] OFFICE Sleep apnea-patient needs new CPAP-will contact [facility] TAPER OFF OF [employer]-TAKE EVERY [...] OFFICE Sleep apnea-patient needs new CPAP-will contact [facility] Pt reports that she uses [...] KENALOG INJECTION TODAY IN THE OFFICE . Sinusitis - Pt has acute infection [...] areas dry [facility]kenalog . Sinusitis - Pt has [...] and understands the consequences of over-medication. . Medicare Exam - today we discussed [...] change in blood pressure readings at home. Hfnhefl-xzuggwjcmjl-ytaawgwf duragesic patch-appt with Dr Ortiz for pain [...] neck-let us know when you are available TAPER OFF OF [employer]-TAKE EVERY OTHER DAY [...] OFFICE Sleep apnea-patient needs new CPAP-will contact [facility] Pt reports that she uses her CPAP and feels like she gets benefit from use of her CPAP with improved energy. Do not start the diflucan until you [...] pt to follow up with specialist at [address] - she needs to pursue treatment. [...] if they worsen, or with other concerns. ROCEPHIN 500 MG IM AUGMENTIN PO 875 MG DAILY X 10 DAYS PREDNISONE PO 40 MG DAILY X 5 DAYS REFILL HYDROCODONE URINE SAMPLE . Sinusitis - Pt has acute infection - pain in face, maxillary region, Pt informed to use decongestant, RX given to patient, sinus rinses also recommended. Call if symptoms do not show improvement. Dysuria-culture urine . .Sinusitis - Pt has acute infection [...]
--- OUTSIDE RECORDS SUMMARY | 2019-03-08 17:07 | XMS REPORT | CCD ---
Author Author [facility] Address [address] [place] [address] Phone Care Team Providers Care [employer] Name Role Phone PP Unavailable CCM Unavailable Summary Purpose Interface Exchange Insurance Providers Payer name Policy type / Coverage type Covered green party ID Effective Begin Date Effective End Date [employer] Medicare Part B [id number] Unknown Family history Son Diagnosis Age At Onset Crohn's disease Unknown Brother Diagnosis Age At Onset Cardiovascular disease Unknown Mother Diagnosis Age At Onset Hypertension Unknown Father Diagnosis Age At Onset Cardiovascular disease Unknown Social History Social History Element Codes Description Effective Dates Marital status Unknown 04/22/2011 Number of children Unknown 3 1 son -Crohns 04/22/[address]: 450771542 Nonsmoker 04/22/2011 Allergies, Adverse Reactions, Alerts Substance [...] Fill Instructions piroxicam 20 mg capsule RxNorm: 995052 TAKE ONE CAPSULE BY MOUTH DAILY 08/09/2018 01/05/2019 Active trazodone 50 mg tablet RxNorm: 725180 TAKE ONE AND ONE-HALF (1 1/2) TABLET BY MOUTH AT BEDTIME. MAY INCREASE TO 2 TABLETS AT BEDTIME NEEDED 08/02/2018 11/19/2018 Active Nexium 40 mg capsule,delayed release RxNorm: 330448 TAKE ONE CAPSULE BY MOUTH TWICE A DAY 07/23/2018 11/19/2018 Active Bystolic 5 mg tablet RxNorm: 101226 1 Tablet(s) PO daily to take with 10 mg daily to equal 15mg daily 07/17/2018 No Stop Date Active alprazolam 0.25 mg tablet RxNorm: 299624 1 Tablet(s) PO TID as needed 07/16/2018 10/13/2018 Active hydrocodone 10 mg-acetaminophen 325 mg tablet RxNorm: 051461 Tablet(s) PO TAKE ONE TO TWO TABLETS BY MOUTH EVERY 6 HOURS NEEDED FOR PAIN 07/10/2018 07/24/2018 Inactive prednisone 20 mg tablet RxNorm: 960260 1 Tablet(s) PO BID 07/10/2018 07/14/2018 Inactive Phenergan with Codeine Syrup RxNorm: 5-10 Milliliter(s) PO Q6 PRN 06/28/2018 No Stop Date Active prednisone 20 mg tablet RxNorm: 966648 2 Tablet(s) PO daily 05/31/2018 06/04/2018 Inactive prednisone 20 mg tablet RxNorm: 232476 2 Tablet(s) PO daily 05/31/2018 05/30/2018 Inactive ceftriaxone 500 mg solution for injection RxNorm: 9456259 Inj 05/28/2018 05/28/2018 Inactive doxycycline hyclate 100 mg tablet RxNorm: 1164423 1 Tablet(s) PO BID 05/28/2018 06/06/2018 Inactive Kenalog 40 mg/mL suspension for injection RxNorm: 9380010 Milliliter(s) Inj 05/28/2018 05/28/2018 Inactive hydrocodone 10 mg-acetaminophen 325 mg tablet RxNorm: 559764 Tablet(s) PO TAKE ONE TO TWO TABLETS BY MOUTH EVERY 6 HOURS NEEDED FOR PAIN 05/09/2018 05/23/2018 Inactive alprazolam 0.25 mg tablet RxNorm: 978999 1 Tablet(s) PO daily as needed 04/25/2018 07/15/2018 Inactive Bystolic 10 mg tablet RxNorm: 096708 TAKE ONE TABLET BY MOUTH DAILY 04/16/2018 09/12/2018 Active hydrocodone 10 mg-acetaminophen 325 mg tablet RxNorm: 793708 Tablet(s) PO TAKE ONE TO TWO TABLETS BY MOUTH EVERY 6 HOURS NEEDED FOR PAIN 03/06/2018 03/20/2018 Inactive trazodone 50 mg tablet RxNorm: 922378 TAKE ONE AND ONE-HALF (1 1/2) TABLET BY MOUTH AT BEDTIME. MAY INCREASE TO 2 TABLETS AT BEDTIME NEEDED 02/23/2018 06/12/2018 Inactive mupirocin 2 % topical ointment RxNorm: 922464 1 TOP BID 02/09/2018 05/27/2018 Inactive Zofran 4 mg tablet RxNorm: 856394 1 Tablet(s) PO TID as needed 02/08/2018 No Stop Date Active Keflex 500 mg capsule RxNorm: 331829 1 Capsule(s) PO TID 02/07/2018 02/13/2018 Inactive alprazolam 0.25 mg tablet RxNorm: 481924 1 Tablet(s) PO daily as needed 01/24/2018 07/09/2018 Inactive hydrocodone 10 mg-acetaminophen 325 mg tablet RxNorm: 814937 Tablet(s) PO TAKE ONE TO TWO TABLETS BY MOUTH EVERY 6 HOURS NEEDED FOR PAIN 01/19/2018 02/02/2018 Inactive hydrochlorothiazide 25 mg tablet RxNorm: 246911 Tablet(s) TAKE ONE TABLET BY MOUTH DAILY 01/19/2018 01/19/2018 Inactive Kenalog 40 mg/mL suspension for injection RxNorm: 1774388 1 Milliliter(s) Inj 01/19/2018 01/19/2018 Inactive piroxicam 20 mg capsule RxNorm: 438313 1 Capsule(s) PO daily 01/19/2018 07/17/2018 Inactive D/C ORDER FOR HCTZ ceftriaxone 500 mg solution for injection RxNorm: 8786063 500 Milligram(s) Inj 01/19/2018 01/19/2018 Inactive Nexium 40 mg capsule,delayed release RxNorm: 985399 TAKE ONE CAPSULE BY MOUTH TWICE A DAY 01/18/2018 04/17/2018 Inactive Nexium 40 mg capsule,delayed release RxNorm: 356249 TAKE ONE CAPSULE BY MOUTH TWICE A DAY 01/15/2018 04/14/2018 Inactive ciprofloxacin 0.3 % eye drops RxNorm: 626322 2 Drop(s) ophthalmic (eye) Q2H while awake x 2 days, then Q4H x 5 days 11/23/2017 05/27/2018 Inactive Keflex 500 mg capsule RxNorm: 153186 1 Capsule(s) PO TID 11/23/2017 11/29/2017 Inactive hydrocodone 10 mg-acetaminophen 325 mg tablet RxNorm: 970016 Tablet(s) PO TAKE ONE TO TWO TABLETS BY MOUTH EVERY 6 HOURS NEEDED FOR PAIN 10/30/2017 11/13/2017 Inactive Augmentin 500 mg-125 mg tablet RxNorm: 896181 1 Tablet(s) PO TID 10/27/2017 11/05/2017 Inactive alprazolam 0.25 mg tablet RxNorm: 971227 1 Tablet(s) PO daily as needed 10/26/2017 04/24/2018 Inactive trazodone 50 mg tablet RxNorm: 200226 TAKE ONE AND ONE-HALF (1 1/2) TABLET BY MOUTH AT BEDTIME. MAY INCREASE TO 2 TABLETS AT BEDTIME NEEDED 09/25/2017 02/03/2018 Inactive Lexapro 20 mg tablet RxNorm: 826333 TAKE ONE AND ONE-HALF TABLET BY MOUTH DAILY 09/15/2017 09/09/2018 Active Flagyl 500 mg tablet RxNorm: 377755 1 Tablet(s) PO TID 09/12/2017 09/21/2017 Inactive promethazine 25 mg tablet RxNorm: 975201 1 Tablet(s) PO TID as needed nausea and vomitting THIS WILL MAKE YOU SLEEPY 09/12/2017 11/08/2017 Inactive Keflex 500 mg capsule RxNorm: 516412 1 Capsule(s) PO QID 08/25/2017 08/31/2017 Inactive [SAVINGS FOR UNINSURED PATIENTS -- [id number], PCN: [id number], Group: [id number], ID# [id number], Process claim through [employer], for questions: . THIS IS NOT INSURANCE.] alprazolam 0.25 mg tablet RxNorm: 495690 1 Tablet(s) PO daily as needed 07/31/2017 04/24/2018 Inactive prednisone 20 mg tablet RxNorm: 110516 2 Tablet(s) PO daily 07/25/2017 07/29/2017 Inactive Augmentin 500 mg-125 mg tablet RxNorm: 451809 1 Tablet(s) PO TID 07/25/2017 08/03/2017 Inactive trazodone 50 mg tablet RxNorm: 212353 TAKE ONE AND ONE-HALF (1 1/2) TABLET BY MOUTH AT BEDTIME. MAY INCREASE TO 2 TABLETS AT BEDTIME NEEDED 06/30/2017 09/03/2017 Inactive Bystolic 10 mg tablet RxNorm: 786243 TAKE ONE TABLET BY MOUTH DAILY 06/30/2017 2017 Inactive hydrochlorothiazide 25 mg tablet RxNorm: 019893 TAKE ONE TABLET BY MOUTH DAILY 06/30/2017 01/18/2018 Inactive Flagyl 500 mg tablet RxNorm: 992783 1 Tablet(s) PO TID 06/27/2017 07/03/2017 Inactive Phenergan with Codeine Syrup RxNorm: 5-10 Milliliter(s) PO Q6 PRN 06/27/2017 11/15/2017 Inactive Levaquin 500 mg tablet RxNorm: 054742 1 Tablet(s) PO daily 06/27/2017 07/03/2017 Inactive Kenalog 40 mg/mL suspension for injection RxNorm: 5891814 1 Milliliter(s) Inj 06/27/2017 06/27/2017 Inactive Nexium 40 mg capsule,delayed release RxNorm: 265854 1 Capsule(s) PO BID TAKE ONE CAPSULE BY MOUTH BID 05/22/2017 09/18/2017 Inactive Nexium 40 mg capsule,delayed release RxNorm: 409438 1 Capsule(s) PO BID TAKE ONE CAPSULE BY MOUTH BID 05/22/2017 05/21/2017 Inactive hydrocodone 10 mg-acetaminophen 325 mg tablet RxNorm: 697714 Tablet(s) PO TAKE ONE TO TWO TABLETS BY MOUTH EVERY 6 HOURS NEEDED FOR PAIN 05/17/2017 06/15/2017 Inactive Nexium 40 mg capsule,delayed release RxNorm: 168649 Capsule(s) TAKE ONE CAPSULE BY MOUTH BID 05/17/2017 05/21/2017 Inactive alprazolam 0.25 mg tablet RxNorm: 243383 1 Tablet(s) PO daily as needed 05/03/2017 07/01/2017 Inactive Levaquin 500 mg tablet RxNorm: 691973 1 Tablet(s) PO daily 04/20/2017 04/26/2017 Inactive clotrimazole 1 % topical cream RxNorm: 419671 1 Application TOP BID 04/20/2017 11/07/2017 Inactive Kenalog 40 mg/mL suspension for injection RxNorm: 6062306 Milliliter(s) Inj 04/20/2017 04/20/2017 Inactive nystatin 100,000 unit/gram topical powder RxNorm: 516426 1 Gram(s) APPLY TOPICALLY TWO TIMES A DAY 04/10/2017 07/08/2017 Inactive trazodone 50 mg tablet RxNorm: 004256 TAKE ONE AND ONE-HALF (1 1/2) TABLET BY MOUTH AT BEDTIME. MAY INCREASE TO 2 TABLETS AT BEDTIME NEEDED 03/28/2017 06/23/2017 Inactive Augmentin 875 mg-125 mg tablet RxNorm: 363452 1 Tablet(s) PO BID 03/14/2017 03/20/2017 Inactive Kenalog 40 mg/mL suspension for injection RxNorm: 9394450 1 Milliliter(s) Inj 03/14/2017 03/14/2017 Inactive Lexapro 20 mg tablet RxNorm: 516525 1.5 Tablet(s) PO daily 03/08/2017 03/07/2017 Inactive Lexapro 20 mg tablet RxNorm: 962436 1.5 Tablet(s) PO daily 03/08/2017 07/05/2017 Inactive alprazolam 0.25 mg tablet RxNorm: 416344 1 Tablet(s) PO daily as needed 02/23/2017 04/23/2017 Inactive (Response to an electronic controlled substance refill request - RxReferenceNumber: [id number]) Flagyl 500 mg tablet RxNorm: 481273 1 Tablet(s) PO TID 02/20/2017 03/01/2017 Inactive promethazine 25 mg tablet RxNorm: 630757 1 Tablet(s) PO TID as needed nausea 02/20/2017 03/01/2017 Inactive Cipro 500 mg tablet RxNorm: 876852 1 Tablet(s) PO BID 02/20/2017 03/01/2017 Inactive Flagyl 500 mg tablet RxNorm: 295555 1 Tablet(s) PO TID 02/09/2017 02/15/2017 Inactive Trintellix 10 mg tablet RxNorm: 3052033 1 Tablet(s) PO QAM 02/06/2017 03/07/2017 Inactive Efudex 5 % topical cream RxNorm: 626909 1 Application TOP BID use on skin spot on nose 02/06/2017 02/15/2017 Inactive Bystolic 10 mg tablet RxNorm: 048950 TAKE ONE TABLET BY MOUTH DAILY 02/03/2017 06/02/2017 Inactive Imitrex 50 mg tablet RxNorm: 914235 TAKE ONE TABLET BY MOUTH EVERY 8 HOURS NEEDED MAY REPEAT IN 1 HOUR OF INITIAL DOSE. DISCONTINUE FIORICET 12/22/2016 02/19/2017 Inactive Nexium 40 mg capsule,delayed release RxNorm: 880657 TAKE ONE CAPSULE BY MOUTH EVERY DAY 12/21/2016 05/16/2017 Inactive Lexapro 20 mg tablet RxNorm: 031960 Tablet(s) TAKE ONE TABLET BY MOUTH DAILY 12/05/2016 02/05/2017 Inactive Augmentin 875 mg-125 mg tablet RxNorm: 729294 1 Tablet(s) PO BID 11/28/2016 12/04/2016 Inactive ceftriaxone 500 mg solution for injection RxNorm: 9717350 1 Milliliter(s) Inj 11/28/2016 11/28/2016 Inactive hydrocodone 10 mg-acetaminophen 325 mg tablet RxNorm: 937502 Tablet(s) PO TAKE ONE TO TWO TABLETS BY MOUTH EVERY 6 HOURS NEEDED FOR PAIN 11/28/2016 05/16/2017 Inactive (Appended: Controlled substance eRx refill - RxReferenceNumber: [id number]) prednisone 20 mg tablet RxNorm: 340356 2 Tablet(s) PO daily 11/28/2016 12/02/2016 Inactive Synthroid 100 mcg tablet RxNorm: 239032 1 Tablet(s) PO daily 11/21/2016 05/19/2017 Inactive Brand name only! trazodone 50 mg tablet RxNorm: 425000 Tablet(s) TAKE 1 AND 1/2 TABLETS EVERY NIGHT AT BEDTIME , MAY INCREASE TO 2 TABLETS AT BEDTIME NEEDED 11/21/2016 11/20/2016 Inactive trazodone 50 mg tablet RxNorm: 611740 TAKE 1 AND 1/2 TABLETS EVERY NIGHT AT BEDTIME , MAY INCREASE TO 2 TABLETS AT BEDTIME NEEDED 11/21/2016 08/01/2018 Inactive Synthroid 100 mcg tablet RxNorm: 045136 1 Tablet(s) PO daily TAKE ONE TABLET BY MOUTH DAILY 11/08/2016 11/20/2016 Inactive ceftriaxone 500 mg solution for injection RxNorm: 3305563 Inj 11/07/2016 11/07/2016 Inactive Kenalog 40 mg/mL suspension for injection RxNorm: 2433209 Milliliter(s) Inj 11/07/2016 11/07/2016 Inactive Xanax 0.25 mg tablet RxNorm: 245411 1 Tablet(s) PO daily as needed 10/31/2016 05/02/2017 Inactive alprazolam 0.25 mg tablet RxNorm: 552843 1 Tablet(s) PO daily as needed 10/21/2016 12/18/2016 Inactive (Response to an electronic controlled substance refill request - RxReferenceNumber: [id number]) hydrochlorothiazide 25 mg tablet RxNorm: 784147 TAKE ONE TABLET BY MOUTH DAILY 10/11/2016 04/08/2017 Inactive Xanax 0.25 mg tablet RxNorm: 141345 1 Tablet(s) PO daily as needed 08/23/2016 10/19/2016 Inactive Flonase Allergy Relief 50 mcg/actuation nasal spray,suspension RxNorm: 2163594 1 [place] NASAL daily 08/15/2016 No Stop Date Active amoxicillin 500 mg capsule RxNorm: 565390 1 Capsule(s) PO TID 08/15/2016 08/24/2016 Inactive Bystolic 10 mg tablet RxNorm: 639212 TAKE ONE TABLET BY MOUTH DAILY 08/01/2016 12/28/2016 Inactive trazodone 50 mg tablet RxNorm: 508022 TAKE 1 AND 1/2 TABLETS EVERY NIGHT AT BEDTIME , MAY INCREASE TO 2 TABLETS AT BEDTIME NEEDED 07/25/2016 11/11/2016 Inactive alprazolam 0.25 mg tablet RxNorm: 137869 1 Tablet(s) PO daily as needed 07/25/2016 08/22/2016 Inactive (Response to an electronic controlled substance refill request - RxReferenceNumber: [id number]) Imitrex 50 mg tablet RxNorm: 527860 1 Tablet(s) PO Q8 as needed may repeat x1 dose in 1 hour of inital dose. 07/13/2016 No Stop Date Active Lexapro 20 mg tablet RxNorm: 849359 TAKE 1/2 TABLET BY MOUTH DAILY FOR 10 DAYS, THEN TAKE ONE TABLET BY MOUTH DAILY 06/27/2016 11/23/2016 Inactive Synthroid 100 mcg tablet RxNorm: 807216 TAKE ONE TABLET BY MOUTH DAILY 06/20/2016 11/07/2016 Inactive Augmentin 500 mg-125 mg tablet RxNorm: 208417 1 Tablet(s) PO TID 06/07/2016 06/13/2016 Inactive hydrocodone 10 mg-acetaminophen 325 mg tablet RxNorm: 894767 Tablet(s) PO TAKE ONE TO TWO TABLETS BY MOUTH EVERY 6 HOURS NEEDED FOR PAIN 06/07/2016 11/27/2016 Inactive (Appended: Controlled substance eRx refill - RxReferenceNumber: [id number]) hydrochlorothiazide 25 mg tablet RxNorm: 090322 TAKE ONE TABLET BY MOUTH DAILY 03/14/2016 09/09/2016 Inactive Edarbi 40 mg tablet RxNorm: 5247663 1 Tablet(s) PO daily 03/14/2016 06/06/2016 Inactive trazodone 50 mg tablet RxNorm: 610103 Tablet(s) TAKE 1 AND 1/2 TABLET AT BEDTIME. MAY INCREASE TO 2 TABLETS IF NECESSARY 02/25/2016 07/05/2016 Inactive Imitrex 50 mg tablet RxNorm: 717186 1 Tablet(s) PO Q8 as needed may repeat x1 dose in 1 hour of inital dose. 02/25/2016 07/12/2016 Inactive dc fioricet Xanax 0.25 mg tablet RxNorm: 671314 1 Tablet(s) PO daily as needed 02/24/2016 07/21/2016 Inactive mupirocin 2 % topical ointment RxNorm: 573317 1 TOP BID 02/22/2016 11/08/2017 Inactive Bactrim DS 800 mg-160 mg tablet RxNorm: 426563 1 Tablet(s) PO BID 02/22/2016 03/02/2016 Inactive Fioricet 50 mg-325 mg-40 mg tablet RxNorm: 456954 Tablet(s) TAKE ONE TABLET BY MOUTH EVERY 4 HOURS NEEDED FOR headache 02/12/2016 02/24/2016 Inactive (Response to an electronic controlled substance refill request - RxReferenceNumber: [id number]) Fioricet 50 mg-325 mg-40 mg tablet RxNorm: 012090 Tablet(s) TAKE ONE TABLET BY MOUTH EVERY 4 HOURS NEEDED FOR headache 02/12/2016 02/11/2016 Inactive (Response to an electronic controlled substance refill request - RxReferenceNumber: [id number]) Nexium 40 mg capsule,delayed release RxNorm: 822050 TAKE ONE CAPSULE BY MOUTH EVERY DAY 02/01/2016 10/27/2016 Inactive Bystolic 10 mg tablet RxNorm: 551422 Tablet(s) TAKE ONE TABLET BY MOUTH DAILY 01/06/2016 07/03/2016 Inactive Xanax 0.25 mg tablet RxNorm: 882872 1 Tablet(s) PO daily as needed 12/28/2015 02/23/2016 Inactive Levaquin 500 mg tablet RxNorm: 136749 1 Tablet(s) PO daily take a probiotic daily 12/14/2015 02/11/2016 Inactive Levaquin 500 mg tablet RxNorm: 469586 1 Tablet(s) PO daily take a probiotic daily 12/14/2015 12/13/2015 Inactive prednisone 20 mg tablet RxNorm: 712395 1 Tablet(s) PO BID 12/07/2015 12/13/2015 Inactive Augmentin 875 mg-125 mg tablet RxNorm: 702232 1 Tablet(s) PO BID 12/07/2015 12/13/2015 Inactive ceftriaxone 500 mg solution for injection RxNorm: 1001103 Inj 12/07/2015 12/07/2015 Inactive Phenergan with Codeine Syrup RxNorm: 5-10 Milliliter(s) PO Q6 PRN 12/07/2015 06/26/2017 Inactive alprazolam 0.25 mg tablet RxNorm: 204564 1 Tablet(s) PO daily as needed 11/27/2015 12/25/2015 Inactive (Response to an electronic controlled substance refill request - RxReferenceNumber: [id number]) trazodone 50 mg tablet RxNorm: 161398 TAKE 1 AND 1/2 TABLET AT BEDTIME FOR 2 WEEKS, MAY INCREASE TO 2 TABLETS IF NECESSARY AFTER THAT 11/26/2015 02/24/2016 Inactive ceftriaxone 500 mg solution for injection RxNorm: 8073779 Milliliter(s) Inj 11/24/2015 11/24/2015 Inactive prednisone 10 mg tablet RxNorm: 725936 3 Tablet(s) PO daily 11/24/2015 11/28/2015 Inactive cefdinir 300 mg capsule RxNorm: 587916 1 Capsule(s) PO BID 11/24/2015 11/30/2015 Inactive Kenalog 40 mg/mL suspension for injection RxNorm: 6722105 1 Milliliter(s) Inj 11/24/2015 11/24/2015 Inactive Lexapro 20 mg tablet RxNorm: 904283 TAKE 1/2 TABLET BY MOUTH DAILY FOR 10 DAYS, THEN TAKE ONE TABLET BY MOUTH DAILY 11/23/2015 05/20/2016 Inactive Lipitor 10 mg tablet RxNorm: 505078 Tablet(s) TAKE ONE TABLET BY MOUTH EVERY DAY 10/26/2015 11/06/2016 Inactive Norvasc 10 mg tablet RxNorm: 472562 Tablet(s) PO TAKE ONE TABLET BY MOUTH EVERY DAY 10/26/2015 01/18/2018 Inactive hydrochlorothiazide 25 mg tablet RxNorm: 705610 TAKE ONE TABLET BY MOUTH DAILY 10/20/2015 01/17/2016 Inactive promethazine 25 mg/mL injection solution RxNorm: 646451 Milliliter(s) Inj 08/27/2015 08/27/2015 Inactive ketorolac 60 mg/2 mL intramuscular solution RxNorm: 308266 Milliliter(s) IM 08/27/2015 08/27/2015 Inactive alprazolam 0.25 mg tablet RxNorm: 873638 1 Tablet(s) PO daily as needed 08/27/2015 10/25/2017 Inactive (Response to an electronic controlled substance refill request - RxReferenceNumber: [id number]) Lexapro 20 mg tablet RxNorm: 502891 TAKE 1/2 TABLET BY MOUTH DAILY FOR 10 DAYS, THEN TAKE ONE TABLET BY MOUTH DAILY 08/13/2015 11/10/2015 Inactive Flonase 50 mcg/actuation nasal spray,suspension RxNorm: 946511 PLACE 1 SPRAY IN EACH NOSTRIL DAILY 08/13/2015 02/08/2016 Inactive Augmentin 500 mg-125 mg tablet RxNorm: 679530 1 Tablet(s) PO TID 08/10/2015 08/16/2015 Inactive Kenalog 40 mg/mL suspension for injection RxNorm: 0089284 Milliliter(s) Inj 08/10/2015 08/10/2015 Inactive ceftriaxone 500 mg solution for injection RxNorm: 7267466 Inj 08/10/2015 08/10/2015 Inactive nystatin 100,000 unit/mL oral suspension RxNorm: 711025 4 Milliliter(s) PO QID 08/10/2015 08/16/2015 Inactive trazodone 50 mg tablet RxNorm: 423651 TAKE 1 AND 1/2 TABLET AT BEDTIME FOR 2 WEEKS, MAY INCREASE TO 2 TABLETS IF NECESSARY AFTER THAT 07/31/2015 11/25/2015 Inactive ceftriaxone 500 mg solution for injection RxNorm: 9016376 1 Milliliter(s) Inj 07/28/2015 07/28/2015 Inactive Bactrim DS 800 mg-160 mg tablet RxNorm: 414433 1 Tablet(s) PO BID 07/28/2015 08/06/2015 Inactive Bactroban 2 % topical ointment RxNorm: 175452 1 Application TOP BID 07/28/2015 08/06/2015 Inactive Diflucan 150 mg tablet RxNorm: 481493 1 Tablet(s) PO daily 06/11/2015 06/17/2015 Inactive clotrimazole 1 % topical cream RxNorm: 445426 1 Application TOP BID 06/11/2015 07/10/2015 Inactive Bystolic 10 mg tablet RxNorm: 201673 TAKE ONE TABLET BY MOUTH DAILY 06/08/2015 12/04/2015 Inactive alprazolam 0.25 mg tablet RxNorm: 352535 1 Tablet(s) PO daily as needed 06/01/2015 08/25/2015 Inactive (Response to an electronic controlled substance refill request - RxReferenceNumber: [id number]) Fioricet 50 mg-325 mg-40 mg tablet RxNorm: 881390 Tablet(s) TAKE ONE TABLET BY MOUTH EVERY 4 HOURS NEEDED FOR headache 05/28/2015 06/08/2015 Inactive (Response to an electronic controlled substance refill request - RxReferenceNumber: [id number]) trazodone 50 mg tablet RxNorm: 017114 TAKE 1 AND 1/2 TABLET AT BEDTIME FOR 2 WEEKS, MAY INCREASE TO 2 TABLETS IF NECESSARY AFTER THAT 05/25/2015 08/22/2015 Inactive trazodone 50 mg tablet RxNorm: 596016 TAKE 1 AND 1/2 TABLET AT BEDTIME FOR 2 WEEKS, MAY INCREASE TO 2 TABLETS IF NECESSARY AFTER THAT 05/25/2015 05/24/2015 Inactive Synthroid 100 mcg tablet RxNorm: 415201 TAKE ONE TABLET BY MOUTH DAILY 04/23/2015 01/17/2016 Inactive Lipitor 10 mg tablet RxNorm: 904669 TAKE ONE TABLET BY MOUTH EVERY DAY 04/23/2015 10/25/2015 Inactive Kenalog 40 mg/mL suspension for injection RxNorm: 6336961 Milliliter(s) Inj 03/19/2015 03/19/2015 Inactive Lexapro 20 mg tablet RxNorm: 874300 1 Tablet(s) PO daily 03/19/2015 07/16/2015 Inactive 1/2 tab daily x 10 days then 1 tab daily hydrocodone 10 mg-acetaminophen 325 mg tablet RxNorm: 495574 Tablet(s) PO TAKE ONE TO TWO TABLETS BY MOUTH EVERY 6 HOURS NEEDED FOR PAIN 03/19/2015 06/06/2016 Inactive (Appended: Controlled substance eRx refill - RxReferenceNumber: [id number]) Carafate 1 gram tablet RxNorm: 648980 1 Tablet(s) PO AC & HS 03/19/2015 06/16/2015 Inactive dissolve in water and take as a slurry hydrochlorothiazide 25 mg tablet RxNorm: 745156 1 Tablet(s) PO daily 03/12/2015 09/07/2015 Inactive Nexium 40 mg capsule,delayed release RxNorm: 431926 TAKE ONE CAPSULE BY MOUTH EVERY DAY 02/26/2015 12/22/2015 Inactive Cymbalta 60 mg capsule,delayed release RxNorm: 733264 TAKE ONE CAPSULE BY MOUTH TWICE A DAY 02/23/2015 03/18/2015 Inactive alprazolam 0.25 mg tablet RxNorm: 393035 1 Tablet(s) PO daily as needed 02/11/2015 05/10/2015 Inactive (Response to an electronic controlled substance refill request - RxReferenceNumber: [id number]) trazodone 50 mg tablet RxNorm: 690086 TAKE 1 AND 1/2 TABLET AT BEDTIME FOR 2 WEEKS, MAY INCREASE TO 2 TABLETS IF NECESSARY AFTER THAT 01/27/2015 05/24/2015 Inactive Augmentin 500 mg-125 mg tablet RxNorm: 611055 1 Tablet(s) PO TID 01/07/2015 01/13/2015 Inactive gentamicin 0.3 % eye drops RxNorm: 341074 3 Drop(s) OPH QID 01/07/2015 01/13/2015 Inactive [AttnRPh: Saving apply/adjudicate RxGRP:[id number] RxBIN:[id number] RxPCN: ID#:[id number]] scopolamine 1.5 mg transdermal 72 hour patch RxNorm: 317836 1 Patch TD q72 hours 01/07/2015 11/23/2015 Inactive Synthroid 100 mcg tablet RxNorm: 595260 TAKE ONE TABLET BY MOUTH ONCE A DAY 01/06/2015 04/22/2015 Inactive nystatin 100,000 unit/gram topical powder RxNorm: 610590 APPLY TOPICALLY TWO TIMES A DAY 12/18/2014 03/17/2015 Inactive alprazolam 0.25 mg tablet RxNorm: 962744 TAKE ONE TABLET BY MOUTH DAILY NEEDED 10/30/2014 11/28/2014 Inactive (Response to an electronic controlled substance refill request - RxReferenceNumber: [id number]) alprazolam 0.25 mg tablet RxNorm: 242743 Tablet(s) TAKE ONE TABLET BY MOUTH DAILY 10/30/2014 10/29/2014 Inactive (Response to an electronic controlled substance refill request - RxReferenceNumber: [id number]) Lipitor 10 mg tablet RxNorm: 632828 TAKE ONE TABLET BY MOUTH EVERY DAY 10/30/2014 02/26/2015 Inactive alprazolam 0.25 mg tablet RxNorm: 230591 TAKE ONE TABLET BY MOUTH DAILY 10/07/2014 10/29/2014 Inactive (Response to an electronic controlled substance refill request - RxReferenceNumber: [id number]) alprazolam 0.25 mg tablet RxNorm: 475264 TAKE ONE TABLET BY MOUTH DAILY 10/06/2014 10/07/2014 Inactive (Response to an electronic controlled substance refill request - RxReferenceNumber: [id number]) alprazolam 0.25 mg tablet RxNorm: 018378 Tablet(s) TAKE ONE TABLET BY MOUTH EVERY DAY NEEDED 09/30/2014 10/06/2014 Inactive (Response to an electronic controlled substance refill request - RxReferenceNumber: [id number]) Fioricet 50 mg-325 mg-40 mg tablet RxNorm: 703702 Tablet(s) TAKE ONE TABLET BY MOUTH EVERY 4 HOURS NEEDED FOR headache 09/29/2014 10/12/2014 Inactive (Response to an electronic controlled substance refill request - RxReferenceNumber: [id number]) Bystolic 10 mg tablet RxNorm: 543573 1 Tablet(s) PO daily TAKE ONE TABLET BY MOUTH EVERY DAY 09/29/2014 04/26/2015 Inactive Bystolic 5 mg tablet RxNorm: 538267 TAKE 1 AND 1/2 TABLETS ONCE DAILY 09/24/2014 09/23/2014 Inactive Bystolic 5 mg tablet RxNorm: 946638 Tablet(s) TAKE 1 AND 1/2 TABLETS ONCE DAILY 09/24/2014 09/18/2015 Inactive gentamicin 0.3 % eye drops RxNorm: 288362 3 Drop(s) OPH QID 09/23/2014 09/29/2014 Inactive trazodone 50 mg tablet RxNorm: 573360 TAKE 1 AND 1/2 TABLET AT BEDTIME FOR 2 WEEKS, MAY INCREASE TO 2 TABLETS IF NECESSARY AFTER THAT 09/22/2014 01/26/2015 Inactive Fioricet 50 mg-325 mg-40 mg tablet RxNorm: 412711 TAKE ONE TABLET BY MOUTH EVERY 4 HOURS NEEDED FOR PAIN 09/17/2014 09/28/2014 Inactive (Response to an electronic controlled substance refill request - RxReferenceNumber: [id number]) Duragesic 50 mcg/hr transdermal patch RxNorm: 157004 1 TD q72 hours 08/07/2014 01/06/2015 Inactive [SAVINGS FOR UNINSURED PATIENTS -- BIN:[id number], PCN: [id number], Group: [id number], ID# [id number], Process claim through [employer], for questions: . THIS IS NOT INSURANCE.] alprazolam 0.25 mg tablet RxNorm: 013506 TAKE ONE TABLET BY MOUTH EVERY DAY NEEDED 07/31/2014 08/29/2014 Inactive (Response to an electronic controlled substance refill request - RxReferenceNumber: [id number]) alprazolam 0.25 mg tablet RxNorm: 970625 1 Tablet(s) PO daily as needed TAKE ONE TABLET BY MOUTH EVERY DAY NEEDED 07/30/2014 08/01/2014 Inactive (Response to an electronic controlled substance refill request - RxReferenceNumber: [id number]) Diflucan 150 mg tablet RxNorm: 296515 1 Tablet(s) PO daily 06/25/2014 07/01/2014 Inactive [SAVINGS FOR UNINSURED PATIENTS -- BIN:[id number], PCN: ASPROD1, Group: [id number], ID# [id number], Process claim through MedImpact, for questions: . THIS IS NOT INSURANCE.] Kenalog 40 mg/mL suspension for injection RxNorm: 2563280 Milliliter(s) Inj 06/23/2014 06/23/2014 Inactive [SAVINGS FOR UNINSURED PATIENTS -- BIN:497732, PCN: ASPROD1, Group: [id number], ID# [id number], Process claim through MedImpact, for questions: . THIS IS NOT INSURANCE.] ceftriaxone 500 mg solution for injection RxNorm: 660445 Inj 06/23/2014 06/23/2014 Inactive [SAVINGS FOR UNINSURED PATIENTS -- BIN:402960, PCN: ASPROD1, Group: [id number], ID# [id number], Process claim through MedImpact, for questions: . THIS IS NOT INSURANCE.] Levaquin 500 mg tablet RxNorm: 879575 1 Tablet(s) PO daily 06/23/2014 07/13/2014 Inactive [SAVINGS FOR UNINSURED PATIENTS -- BIN:809512, PCN: ASPROD1, Group: [id number], ID# [id number], Process claim through MedImpact, for questions: . THIS IS NOT INSURANCE.] Duragesic 50 mcg/hr transdermal patch RxNorm: 077811 1 TD q72 hours 06/05/2014 08/06/2014 Inactive [SAVINGS FOR UNINSURED PATIENTS -- BIN:301015, PCN: ASPROD1, Group: [id number], ID# [id number], Process claim through Lightbox, for questions: . THIS IS NOT INSURANCE.] alprazolam 0.25 mg tablet RxNorm: 508069 1 Tablet(s) PO daily as needed TAKE ONE TABLET BY MOUTH EVERY DAY NEEDED 06/02/2014 07/29/2014 Inactive (Response to an electronic controlled substance refill request - RxReferenceNumber: [id number]) nystatin 100,000 unit/gram topical powder RxNorm: 872872 APPLY TO AFFECTED AREA(S) TWO TIMES A DAY 05/01/2014 06/14/2014 Inactive hydrochlorothiazide 25 mg tablet RxNorm: 307551 TAKE ONE TABLET BY MOUTH EVERY DAY MUST CALL MD FOR APPOINTMENT 04/24/2014 10/20/2014 Inactive alprazolam 0.25 mg tablet RxNorm: 048832 Tablet(s) TAKE ONE TABLET BY MOUTH EVERY DAY NEEDED 04/16/2014 06/02/2014 Inactive (Response to an electronic controlled substance refill request - RxReferenceNumber: [id number]) alprazolam 0.25 mg tablet RxNorm: 672908 TAKE ONE TABLET BY MOUTH EVERY DAY NEEDED 04/16/2014 05/15/2014 Inactive (Response to an electronic controlled substance refill request - RxReferenceNumber: [id number]) alprazolam 0.25 mg tablet RxNorm: 585945 TAKE ONE TABLET BY MOUTH EVERY DAY NEEDED 04/16/2014 05/15/2014 Inactive (Response to an electronic controlled substance refill request - RxReferenceNumber: [id number]) alprazolam 0.25 mg tablet RxNorm: 970347 TAKE ONE TABLET BY MOUTH EVERY DAY NEEDED 04/14/2014 04/16/2014 Inactive (Response to an electronic controlled substance refill request - RxReferenceNumber: [id number]) Lipitor 10 mg tablet RxNorm: 429972 TAKE ONE TABLET BY MOUTH EVERY DAY 04/14/2014 09/10/2014 Inactive alprazolam 0.25 mg tablet RxNorm: 978365 TAKE ONE TABLET BY MOUTH EVERY DAY NEEDED 04/14/2014 04/14/2014 Inactive (Response to an electronic controlled substance refill request - RxReferenceNumber: [id number]) alprazolam 0.25 mg tablet RxNorm: 468565 TAKE ONE TABLET BY MOUTH EVERY DAY NEEDED 04/14/2014 04/15/2014 Inactive (Response to an electronic controlled substance refill request - RxReferenceNumber: [id number]) alprazolam 0.25 mg tablet RxNorm: 089582 TAKE ONE TABLET BY MOUTH EVERY DAY NEEDED 04/14/2014 04/14/2014 Inactive (Response to an electronic controlled substance refill request - RxReferenceNumber: [id number]) nystatin 100,000 unit/gram topical powder RxNorm: 555766 1 Application TOP BID 04/03/2014 07/01/2014 Inactive [SAVINGS FOR UNINSURED PATIENTS -- BIN:507076, PCN: ASPROD1, Group: [id number], ID# [id number], Process claim through MedImpact, for questions: . THIS IS NOT INSURANCE.] Keflex 500 mg capsule RxNorm: 443686 1 Capsule(s) PO QID 04/03/2014 04/09/2014 Inactive [SAVINGS FOR UNINSURED PATIENTS -- BIN:286520, PCN: ASPROD1, Group: [id number], ID# [id number], Process claim through MedImpact, for questions: . THIS IS NOT INSURANCE.] Synthroid 100 mcg tablet RxNorm: 778175 1 Tablet(s) PO daily TAKE ONE TABLET BY MOUTH EVERY DAY 04/01/2014 01/05/2015 Inactive [SAVINGS FOR UNINSURED PATIENTS -- BIN:280438, PCN: ASPROD1, Group: [id number], ID# [id number], Process claim through MedImpact, for questions: . THIS IS NOT INSURANCE.] Duragesic 50 mcg/hr transdermal patch RxNorm: 012941 1 TD q72 hours 03/24/2014 06/04/2014 Inactive [SAVINGS FOR UNINSURED PATIENTS -- BIN:278490, PCN: ASPROD1, Group: [id number], ID# [id number], Process claim through MedICamalize SLact, for questions: . THIS IS NOT INSURANCE.] trazodone 50 mg tablet RxNorm: 906376 TAKE 1 AND 1/2 TABLET AT BEDTIME FOR 2 WEEKS, MAY INCREASE TO 2 TABLETS IF NECESSARY AFTER THAT 03/18/2014 09/13/2014 Inactive nystatin 100,000 unit/gram topical powder RxNorm: 197469 1 Application TOP BID 03/07/2014 03/16/2014 Inactive [SAVINGS FOR UNINSURED PATIENTS -- BIN:278154, PCN: ASPROD1, Group: [id number], ID# [id number], Process claim through MedImpact, for questions: . THIS IS NOT INSURANCE.] permethrin 5 % topical cream RxNorm: 378890 1 Application TOP daily 03/07/2014 11/23/2015 Inactive apply head to toe-leave on overnight and wash off in the a.m. May repeat x 1 if needed Diflucan 150 mg tablet RxNorm: 996294 1 Tablet(s) PO daily 03/07/2014 03/09/2014 Inactive [SAVINGS FOR UNINSURED PATIENTS -- BIN:202751, PCN: ASPROD1, Group: [id number], ID# [id number], Process claim through Lightbox, for questions: . THIS IS NOT INSURANCE.] hydrochlorothiazide 25 mg tablet RxNorm: 749918 TAKE ONE TABLET BY MOUTH EVERY DAY MUST CALL MD FOR APPOINTMENT 03/06/2014 04/23/2014 Inactive Zithromax Z-Sergio 250 mg tablet RxNorm: 152444 Tablet(s) PO as directed 03/04/2014 11/23/2015 Inactive [SAVINGS FOR UNINSURED PATIENTS -- BIN:014221, PCN: ASPROD1, Group: [id number], ID# [id number], Process claim through Augmenixact, for questions: . THIS IS NOT INSURANCE.] Flonase 50 mcg/actuation nasal spray,suspension RxNorm: 621764 1 [place] NASAL daily 03/04/2014 07/01/2014 Inactive [SAVINGS FOR UNINSURED PATIENTS -- BIN:785455, PCN: ASPROD1, Group: [id number], ID# [id number], Process claim through Lightbox, for questions: . THIS IS NOT INSURANCE.] alprazolam 0.25 mg tablet RxNorm: 652338 1 Tablet(s) PO PRN TAKE ONE TABLET BY MOUTH EVERY DAY NEEDED 02/25/2014 04/14/2014 Inactive (Appended: Controlled substance eRx refill - RxReferenceNumber: [id number]) alprazolam 0.25 mg tablet RxNorm: 301366 TAKE ONE TABLET BY MOUTH EVERY DAY NEEDED 02/21/2014 03/22/2014 Inactive (Response to an electronic controlled substance refill request - RxReferenceNumber: [id number]) alprazolam 0.25 mg tablet RxNorm: 640202 TAKE ONE TABLET BY MOUTH EVERY DAY NEEDED 02/21/2014 03/22/2014 Inactive (Response to an electronic controlled substance refill request - RxReferenceNumber: [id number]) alprazolam 0.25 mg tablet RxNorm: 391121 TAKE ONE TABLET BY MOUTH EVERY DAY NEEDED 02/18/2014 03/19/2014 Inactive (Response to an electronic controlled substance refill request - RxReferenceNumber: [id number]) Cymbalta 60 mg capsule,delayed release RxNorm: 116958 TAKE ONE CAPSULE BY MOUTH TWICE A DAY 02/18/2014 01/13/2015 Inactive Nexium 40 mg capsule,delayed release RxNorm: 754883 TAKE ONE CAPSULE BY MOUTH EVERY DAY 02/18/2014 01/13/2015 Inactive Bactrim DS 800 mg-160 mg tablet RxNorm: 985143 1 Tablet(s) PO BID 02/13/2014 02/19/2014 Inactive probiotic while one antibiotic Bactrim DS 800 mg-160 mg tablet RxNorm: 600747 1 Tablet(s) PO BID 02/13/2014 02/12/2014 Inactive hydrocodone 10 mg-acetaminophen 325 mg tablet RxNorm: 557715 Tablet(s) PO TAKE ONE TO TWO TABLETS BY MOUTH EVERY 6 HOURS NEEDED FOR PAIN 02/06/2014 03/18/2015 Inactive (Appended: Controlled substance eRx refill - RxReferenceNumber: [id number]) Abilify 2 mg tablet RxNorm: 399851 Tablet(s) PO TAKE ONE TABLET BY MOUTH EVERY NIGHT AT BEDTIME 02/03/2014 03/19/2015 Inactive Duragesic 50 mcg/hr transdermal patch RxNorm: 152377 1 TD q72 hours 01/14/2014 03/23/2014 Inactive alprazolam 0.25 mg tablet RxNorm: 284128 1 Tablet(s) PO QDAY PRN 01/14/2014 02/12/2014 Inactive alprazolam 0.25 mg tablet RxNorm: 333445 Tablet(s) PO TAKE ONE TABLET BY MOUTH EVERY DAY NEEDED 01/14/2014 02/24/2014 Inactive (Appended: Controlled substance eRx refill - RxReferenceNumber: [id number]) Lipitor 10 mg tablet RxNorm: 493248 Tablet(s) PO TAKE ONE TABLET BY MOUTH EVERY DAY 01/14/2014 04/13/2014 Inactive Synthroid 100 mcg tablet RxNorm: 473887 Tablet(s) PO TAKE ONE TABLET BY MOUTH EVERY DAY 2013 03/31/2014 Inactive Fioricet 50 mg-325 mg-40 mg tablet RxNorm: 227342 Tablet(s) PO TAKE ONE TABLET BY MOUTH EVERY 4 HOURS NEEDED FOR PAIN 11/27/2013 09/17/2014 Inactive Fioricet 50 mg-325 mg-40 mg tablet RxNorm: 279340 Tablet(s) PO TAKE ONE TABLET BY MOUTH EVERY 4 HOURS NEEDED FOR PAIN 11/25/2013 11/26/2013 Inactive Zithromax Z-Sergio 250 mg tablet RxNorm: 237076 Tablet(s) PO as directed 11/11/2013 01/13/2014 Inactive Bystolic 10 mg tablet RxNorm: 375759 Tablet(s) PO TAKE ONE TABLET BY MOUTH EVERY DAY 10/21/2013 09/28/2014 Inactive Abilify 2 mg tablet RxNorm: 287180 1 Tablet(s) PO QHS 09/25/2013 01/22/2014 Inactive Synthroid 100 mcg tablet RxNorm: 786196 Tablet(s) PO TAKE ONE TABLET BY MOUTH EVERY DAY 09/24/2013 12/25/2013 Inactive Abilify 2 mg tablet RxNorm: 999538 1 Tablet(s) PO QHS 09/24/2013 09/24/2013 Inactive Rocephin 500 mg solution for injection RxNorm: 490091 1ml Milliliter(s) Inj 09/24/2013 09/24/2013 Inactive Rocephin 500 mg solution for injection RxNorm: 223882 1 Milliliter(s) Inj 09/19/2013 09/19/2013 Inactive Bystolic 5 mg tablet RxNorm: 174936 1 1/2 Tablet(s) PO daily 09/17/2013 03/15/2014 Inactive 1 1/2 daily may have 90 day if cheaper Bystolic 5 mg tablet RxNorm: 046015 1 1/2 Tablet(s) PO daily 09/17/2013 09/16/2013 Inactive 1 1/2 daily Lipitor 10 mg tablet RxNorm: 841421 Tablet(s) PO TAKE ONE TABLET BY MOUTH EVERY DAY 09/12/2013 01/13/2014 Inactive hydrocodone 10 mg-acetaminophen 325 mg tablet RxNorm: 566108 Tablet(s) PO TAKE ONE TO TWO TABLETS BY MOUTH EVERY 6 HOURS NEEDED FOR PAIN 09/09/2013 10/29/2017 Inactive (Appended: Controlled substance eRx refill - RxReferenceNumber: [id number]) hydrocodone 10 mg-acetaminophen 325 mg tablet RxNorm: 974928 1 Tablet(s) PO Q6 PRN 09/09/2013 02/06/2014 Inactive hydrocodone 10 mg-acetaminophen 325 mg tablet RxNorm: 285739 Tablet(s) PO TAKE ONE TO TWO TABLETS BY MOUTH EVERY 6 HOURS NEEDED FOR PAIN 09/06/2013 10/29/2017 Inactive (Appended: Controlled substance eRx refill - RxReferenceNumber: [id number]) Norvasc 10 mg tablet RxNorm: 335766 Tablet(s) PO TAKE ONE TABLET BY MOUTH EVERY DAY 09/05/2013 10/25/2015 Inactive trazodone 50 mg tablet RxNorm: 687041 1 1/2 Tablet(s) PO QHS 09/03/2013 03/17/2014 Inactive 75q hs x 2 week may increase to 100mg if nec after that nystatin 100,000 unit/mL oral suspension RxNorm: 399898 6 Milliliter(s) PO QID 08/06/2013 08/15/2013 Inactive Flonase 50 mcg/actuation nasal spray,suspension RxNorm: 789522 2 [place] NASAL daily 08/06/2013 03/03/2014 Inactive nystatin 100,000 unit/mL oral suspension RxNorm: 878163 6 Unit(s) PO QID 08/05/2013 08/05/2013 Inactive Phenergan with Codeine Syrup RxNorm: 5 Milliliter(s) PO Q4 PRN 08/05/2013 12/02/2013 Inactive 8 ounces alprazolam 0.25 mg tablet RxNorm: 092668 1 Tablet(s) PO QDAY PRN 07/29/2013 01/14/2014 Inactive Diflucan 150 mg tablet RxNorm: 862176 1 Tablet(s) PO daily 07/24/2013 07/26/2013 Inactive hydrochlorothiazide 25 mg tablet RxNorm: 676344 Tablet(s) PO TAKE ONE TABLET BY MOUTH EVERY DAY MUST CALL MD FOR APPOINTMENT 07/19/2013 03/05/2014 Inactive Phenergan with Codeine Syrup RxNorm: 10 Milliliter(s) PO Q4 PRN 07/10/2013 08/04/2013 Inactive 8 ounces Rocephin 500 mg solution for injection RxNorm: 142977 1 Inj 07/10/2013 07/10/2013 Inactive cefdinir 300 mg capsule RxNorm: 253208 1 Capsule(s) PO BID 07/10/2013 07/16/2013 Inactive prednisone 10 mg tablet RxNorm: 191444 3 Tablet(s) PO daily 07/10/2013 07/14/2013 Inactive Carafate 100 mg/mL oral suspension RxNorm: 798211 10 Milliliter(s) PO Q6 PRN pt to take carafate 10mL every 6 hours as needed. 07/10/2013 08/05/2014 Inactive Kenalog 40 mg/mL suspension for injection RxNorm: 6020053 1 Milliliter(s) Inj 07/10/2013 07/10/2013 Inactive trazodone 50 mg tablet RxNorm: 727127 1 Tablet(s) PO QHS 07/10/2013 09/02/2013 Inactive sulfamethoxazole 800 mg-trimethoprim 160 mg tablet RxNorm: 811871 1 Tablet(s) PO BID 06/03/2013 06/12/2013 Inactive Synthroid 125 mcg tablet RxNorm: 013260 1 Tablet(s) PO daily 05/07/2013 09/23/2013 Inactive Bystolic 10 mg tablet RxNorm: 353171 1.5 Tablet(s) PO daily 05/07/2013 09/03/2013 Inactive Voltaren 1 % Topical Gel RxNorm: 610301 4 Gram(s) TOP QID apply 4 grams to knees, 2 grams to hands and ankles four times daily. 05/07/2013 09/03/2013 Inactive hydrocodone 10 mg-acetaminophen 325 mg tablet RxNorm: 245465 1 Tablet(s) PO Q6 PRN 04/23/2013 09/09/2013 Inactive Norvasc 10 mg tablet RxNorm: 983975 Tablet(s) PO TAKE ONE TABLET BY MOUTH EVERY DAY 04/23/2013 09/04/2013 Inactive alprazolam 0.25 mg tablet RxNorm: 673330 1 Tablet(s) PO QDAY PRN 03/25/2013 07/22/2013 Inactive Bystolic 10 mg tablet RxNorm: 417232 1 Tablet(s) PO daily TAKE ONE TABLET BY MOUTH EVERY DAY 03/25/2013 05/06/2013 Inactive zolpidem 10 mg tablet RxNorm: 483365 1 Tablet(s) PO HS PRN 03/25/2013 07/09/2013 Inactive gentamicin 0.3 % Eye Drops RxNorm: 3622841 3 Drop(s) OPH QID three gtts to each eye QID x 7 days 03/11/2013 03/10/2013 Inactive gentamicin 0.3 % eye drops RxNorm: 062648 3 Drop(s) OPH QID three gtts to each eye QID x 7 days 03/11/2013 03/17/2013 Inactive Nexium 40 mg capsule,delayed release RxNorm: 105207 Capsule(s) PO TAKE ONE CAPSULE BY MOUTH EVERY DAY 02/15/2013 02/17/2014 Inactive Cymbalta 60 mg capsule,delayed release RxNorm: 345979 Capsule(s) PO TAKE ONE CAPSULE BY MOUTH TWICE A DAY 02/15/2013 02/17/2014 Inactive hydrocodone 10 mg-acetaminophen 325 mg tablet RxNorm: 3808250 1 Tablet(s) PO Q6 PRN 01/22/2013 04/22/2013 Inactive Lipitor 10 mg tablet RxNorm: 317075 Tablet(s) PO TAKE ONE TABLET BY MOUTH EVERY DAY 01/07/2013 09/11/2013 Inactive Cymbalta 60 mg capsule,delayed release RxNorm: 376038 Capsule(s) PO TAKE ONE CAPSULE BY MOUTH TWICE A DAY 01/02/2013 02/14/2013 Inactive Synthroid 100 mcg tablet RxNorm: 040111 1 Tablet(s) PO 12/03/2012 05/06/2013 Inactive Enablex 7.5 mg tablet,extended release RxNorm: 551875 1 Tablet(s) PO daily 11/28/2012 11/27/2012 Inactive Enablex 7.5 mg tablet,extended release RxNorm: 325221 1 Tablet(s) PO daily 11/28/2012 11/28/2012 Inactive scopolamine 1.5 mg 72 hr Transderm Patch RxNorm: 994935 1 Milligram(s) TD q72 hours 11/26/2012 05/06/2013 Inactive hydrochlorothiazide 25 mg tablet RxNorm: 337181 Tablet(s) PO TAKE ONE TABLET BY MOUTH EVERY DAY MUST CALL MD FOR APPOINTMENT 11/24/2012 07/18/2013 Inactive Cymbalta 60 mg capsule,delayed release RxNorm: 838829 Capsule(s) PO TAKE ONE CAPSULE BY MOUTH TWICE A DAY 10/26/2012 01/01/2013 Inactive Bystolic 10 mg tablet RxNorm: 967473 Tablet(s) PO TAKE ONE TABLET BY MOUTH EVERY DAY 10/12/2012 03/25/2013 Inactive zolpidem 10 mg tablet RxNorm: 171633 1 Tablet(s) PO HS PRN 10/02/2012 01/29/2013 Inactive alprazolam 0.25 mg tablet RxNorm: 307014 1 Tablet(s) PO QDAY PRN 10/02/2012 01/29/2013 Inactive Kenalog 40 mg/mL Susp for Injection RxNorm: 7819829 1 Milliliter(s) Inj 09/24/2012 09/24/2012 Inactive Diflucan 150 mg tablet RxNorm: 710831 1 Tablet(s) PO daily 09/24/2012 09/30/2012 Inactive acyclovir 400 mg tablet RxNorm: 749866 1 Tablet(s) PO QID 09/24/2012 10/08/2012 Inactive Cipro 500 mg tablet RxNorm: 021768 1 Tablet(s) PO BID 09/24/2012 09/30/2012 Inactive Tamiflu 75 mg capsule RxNorm: 877588 1 Capsule(s) PO BID 09/17/2012 09/16/2012 Inactive Tamiflu 75 mg capsule RxNorm: 634238 1 Capsule(s) PO BID 09/17/2012 09/16/2012 Inactive Tamiflu 75 mg capsule RxNorm: 309945 1 Capsule(s) PO BID please disregard order for #14 09/17/2012 09/21/2012 Inactive fluconazole 150 mg tablet RxNorm: 949624 1 Tablet(s) PO daily 09/10/2012 09/13/2012 Inactive ketoconazole 2 % Topical Cream RxNorm: 345472 Application TOP BID apply to affected area BID until gone 08/31/2012 11/01/2017 Inactive Norvasc 10 mg tablet RxNorm: 580808 Tablet(s) PO TAKE ONE TABLET BY MOUTH EVERY DAY 08/29/2012 04/22/2013 Inactive Cipro 500 mg tablet RxNorm: 426971 1 Tablet(s) PO BID 08/17/2012 08/26/2012 Inactive Flagyl 500 mg tablet RxNorm: 638384 1 Tablet(s) PO TID 08/17/2012 08/23/2012 Inactive Cipro 500 mg tablet RxNorm: 161969 1 Tablet(s) PO BID 08/17/2012 08/16/2012 Inactive zolpidem 10 mg tablet RxNorm: 548585 1 Tablet(s) PO HS PRN 08/17/2012 09/15/2012 Inactive Flagyl 500 mg tablet RxNorm: 435487 1 Tablet(s) PO TID 08/17/2012 08/16/2012 Inactive alprazolam 0.25 mg tablet RxNorm: 161822 1 Tablet(s) PO QDAY PRN 08/17/2012 09/15/2012 Inactive [place] Allergy 180 mg tablet RxNorm: 505036 1 Tablet(s) PO daily 08/08/2012 02/03/2013 Inactive hydrochlorothiazide 25 mg tablet RxNorm: 772930 1/2 Tablet(s) PO daily 08/08/2012 11/05/2012 Inactive needs appt Carafate 1 gram tablet RxNorm: 780230 1 Tablet(s) PO QID mix with 10 cc water and dissolve into slurry 08/08/2012 08/21/2012 Inactive hydrocodone 10 mg-acetaminophen 325 mg tablet RxNorm: 3131756 1 Tablet(s) PO Q6 PRN 08/08/2012 01/21/2013 Inactive Synthroid 100 mcg tablet RxNorm: 071267 1 Tablet(s) PO 08/08/2012 12/02/2012 Inactive Cymbalta 60 mg capsule,delayed release RxNorm: 747768 Capsule(s) PO 07/23/2012 10/25/2012 Inactive TAKE ONE CAPSULE BY MOUTH TWICE A DAY Nexium 40 mg capsule,delayed release RxNorm: 082870 Capsule(s) PO 06/20/2012 02/14/2013 Inactive TAKE ONE CAPSULE BY MOUTH EVERY DAY Lipitor 10 mg tablet RxNorm: 149260 Tablet(s) PO 06/20/2012 01/06/2013 Inactive TAKE ONE TABLET BY MOUTH EVERY DAY hydrochlorothiazide 25 mg tablet RxNorm: 986890 1 Tablet(s) PO daily 06/19/2012 08/07/2012 Inactive needs appt alprazolam 0.25 mg tablet RxNorm: 345241 1 Tablet(s) PO QDAY PRN 06/05/2012 07/04/2012 Inactive zolpidem 10 mg tablet RxNorm: 583171 1 Tablet(s) PO HS PRN 06/05/2012 07/04/2012 Inactive zolpidem 10 mg tablet RxNorm: 154747 1 Tablet(s) PO HS PRN 04/16/2012 05/15/2012 Inactive alprazolam 0.25 mg tablet RxNorm: 464804 1 Tablet(s) PO QDAY PRN 04/16/2012 05/15/2012 Inactive Cymbalta 60 mg capsule,delayed release RxNorm: 674762 1 Capsule(s) PO BID 03/22/2012 07/19/2012 Inactive Fioricet 50 mg-325 mg-40 mg tablet RxNorm: 235056 1 Tablet(s) PO Q4 PRN 03/22/2012 11/24/2013 Inactive Bystolic 10 mg tablet RxNorm: 494389 Tablet(s) PO 03/22/2012 10/11/2012 Inactive TAKE ONE TABLET BY MOUTH EVERY DAY potassium chloride ER 10 mEq Tab RxNorm: 499789 1 Tablet(s) PO daily 02/24/2012 03/01/2012 Inactive Lasix 20 mg Tab RxNorm: 864782 1 Tablet(s) PO daily 02/22/2012 02/21/2012 Inactive KCL 10 meq RxNorm: 1 PO daily 02/22/2012 02/21/2012 Inactive potassium chloride ER 10 mEq Tab RxNorm: 738724 1 Tablet(s) PO daily 02/22/2012 02/21/2012 Inactive Lasix 20 mg Tab RxNorm: 191302 1 Tablet(s) PO daily 02/22/2012 02/28/2012 Inactive KCL 10 meq RxNorm: 1 PO daily 02/22/2012 02/22/2012 Inactive potassium chloride ER 10 mEq Tab RxNorm: 563956 1 Tablet(s) PO daily 02/22/2012 02/23/2012 Inactive Rocephin 500 mg Solution for Injection RxNorm: 287438 Inj 02/15/2012 02/15/2012 Inactive Nexium 40 mg capsule,delayed release RxNorm: 931486 1 Capsule(s) PO daily 02/15/2012 No Stop Date Active Bystolic 10 mg Tab RxNorm: 464339 1 Tablet(s) PO daily 02/15/2012 08/12/2012 Inactive alprazolam 0.25 mg tablet RxNorm: 217316 1 Tablet(s) PO QDAY PRN 01/31/2012 02/29/2012 Inactive zolpidem 10 mg tablet RxNorm: 511667 1 Tablet(s) PO HS PRN 01/31/2012 02/29/2012 Inactive alprazolam 0.25 mg Tab RxNorm: 858230 1 Tablet(s) PO QDAY PRN 12/16/2011 01/14/2012 Inactive zolpidem 10 mg Tab RxNorm: 189600 1 Tablet(s) PO HS PRN 12/16/2011 01/14/2012 Inactive Norvasc 10 mg tablet RxNorm: 828266 1 Tablet(s) PO daily 12/02/2011 02/21/2012 Inactive Lipitor 10 mg tablet RxNorm: 918002 1 Tablet(s) PO daily 11/16/2011 05/13/2012 Inactive zolpidem 10 mg Tab RxNorm: 150797 1 Tablet(s) PO HS PRN 10/26/2011 12/15/2011 Inactive alprazolam 0.25 mg Tab RxNorm: 239709 1 Tablet(s) PO QDAY PRN 10/26/2011 12/15/2011 Inactive hydrochlorothiazide 25 mg tablet RxNorm: 800271 1 Tablet(s) PO daily 09/05/2011 03/02/2012 Inactive Synthroid 75 mcg tablet RxNorm: 341428 1 Tablet(s) PO daily 08/01/2011 02/26/2012 Inactive Abilify 2 mg Tab RxNorm: 433589 1 Tablet(s) PO QHS 08/01/2011 09/10/2012 Inactive dicyclomine 10 mg Cap RxNorm: 804787 1 Capsule(s) PO TID 08/01/2011 10/29/2011 Inactive alprazolam 0.25 mg Tab RxNorm: 776767 1 Tablet(s) PO QDAY PRN 07/26/2011 10/25/2011 Inactive Fioricet 50 mg-325 mg-40 mg tablet RxNorm: 745797 1 Tablet(s) PO Q4 PRN 07/14/2011 03/21/2012 Inactive Rocephin 500 mg Solution for Injection RxNorm: 451225 1 Milliliter(s) Inj 07/14/2011 08/01/2011 Inactive Nexium 40 mg Capsule, delayed release RxNorm: 993614 1 Capsule(s) PO daily 05/23/2011 10/06/2011 Inactive Bystolic 10 mg tablet RxNorm: 146977 1 Tablet(s) PO daily 05/23/2011 11/18/2011 Inactive Bystolic 10 mg Tab RxNorm: 517342 1 Tablet(s) PO daily 05/23/2011 05/22/2011 Inactive alprazolam 0.25 mg Tab RxNorm: 157589 1 Tablet(s) PO QDAY PRN 05/23/2011 07/25/2011 Inactive Influenza Virus Vaccine 0.5 mL RxNorm: IM 05/23/2011 05/23/2011 Inactive zolpidem 10 mg Tab RxNorm: 323464 1 Tablet(s) PO HS PRN 05/23/2011 10/25/2011 Inactive Rocephin 500 mg Solution for Injection RxNorm: 694385 1 Milliliter(s) Inj 05/03/2011 07/14/2011 Inactive Kenalog 40 mg/mL Susp for Injection RxNorm: 6815229 1 Milliliter(s) Inj 05/03/2011 07/14/2011 Inactive Bactrim DS 800 mg-160 mg Tab RxNorm: 596025 1 Tablet(s) PO BID 05/03/2011 08/01/2011 Inactive Bystolic 10 mg tablet RxNorm: 064459 1 Tablet(s) PO daily No Start Date Active Flonase 50 mcg/actuation nasal spray,suspension RxNorm: 2638362 2 [place] NASAL daily No Start Date 08/05/2013 Inactive Levaquin 500 mg tablet RxNorm: 675360 Tablet(s) PO No Start Date 04/19/2017 Inactive Duragesic 50 mcg/hr transdermal patch RxNorm: 828070 1 TD q72 hours No Start Date 01/13/2014 Inactive Vesicare 5 mg tablet RxNorm: 030707 1 Tablet(s) PO daily No Start Date 01/06/2015 Inactive Celebrex 200 mg capsule RxNorm: 532499 1 Capsule(s) PO daily No Start Date 04/02/2014 Inactive zolpidem 10 mg Tab RxNorm: 230897 1 Tablet(s) PO HS PRN No Start Date 05/22/2011 Inactive Zyrtec 10 mg Tab RxNorm: 6249376 1 Tablet(s) PO daily No Start Date 08/08/2012 Inactive Flonase 50 mcg/actuation nasal spray,suspension RxNorm: 1978569 1 [place] NASAL daily No Start Date 11/07/2017 Inactive 1 spray to each nostril daily Nexium 40 mg Cap RxNorm: 063729 1 Capsule(s) PO daily No Start Date 05/22/2011 Inactive ketoconazole 2 % Topical Cream RxNorm: 957966 Application TOP BID apply to affected area BID until gone No Start Date 08/30/2012 Inactive aspirin 81 mg tablet RxNorm: 195262 1 Tablet(s) PO daily No Start Date 11/13/2017 Inactive Cymbalta 60 mg capsule,delayed release RxNorm: 273956 1 Capsule(s) PO BID No Start Date 03/21/2012 Inactive alprazolam 0.25 mg Tab RxNorm: 133582 1 Tablet(s) PO QDAY PRN No Start Date 05/22/2011 Inactive baclofen 10 mg tablet RxNorm: 297487 1 Tablet(s) PO TID as needed muscle spasms No Start Date 11/14/2017 Inactive Toprol XL 100 mg 24 hr Tab RxNorm: 917336 1 Tablet(s) PO BID No Start Date 04/25/2011 Inactive Xanax 0.25 mg tablet RxNorm: 684013 1 Tablet(s) PO daily as needed No Start Date 12/27/2015 Inactive Bystolic 10 mg Tab RxNorm: 430125 1 Tablet(s) PO daily No Start Date 05/22/2011 Inactive Fioricet 50 mg-325 mg-40 mg Tab RxNorm: 333075 1 Tablet(s) PO Q4 PRN No Start Date 07/13/2011 Inactive albuterol sulfate HFA 90 mcg/Actuation Aerosol Inhaler RxNorm: 7640295 1 INH Q4 PRN No Start Date 01/06/2015 Inactive Imitrex 50 mg tablet RxNorm: 385996 1 Tablet(s) PO Q8 as needed may repeat x1 dose in 1 hour of inital dose. No Start Date 02/24/2016 Inactive dc fioricet Tessalon 200 mg Cap RxNorm: 977224 1 Capsule(s) PO Q4 PRN No Start Date 02/14/2012 Inactive Zithromax Z-Sergio 250 mg tablet RxNorm: 340459 Tablet(s) PO No Start Date 11/10/2013 Inactive hydrochlorothiazide 25 mg Tab RxNorm: 483273 1 Tablet(s) PO daily No Start Date 09/04/2011 Inactive Fish Oil 1,000 mg Cap RxNorm: 1 Capsule(s) PO TID No Start Date 11/08/2017 Inactive Deplin 15 mg Tab RxNorm: 1 Tablet(s) PO daily No Start Date 08/01/2011 Inactive Brilinta 90 mg tablet RxNorm: 2455500 1 Tablet(s) PO BID No Start Date 11/23/2015 Inactive Synthroid 75 mcg Tab RxNorm: 977757 1 Tablet(s) PO daily No Start Date 07/31/2011 Inactive ciprofloxacin 0.3 % eye drops RxNorm: 824571 2 Drop(s) ophthalmic (eye) Q2H while awake x 2 days, then Q4H x 5 days No Start Date 11/22/2017 Inactive scopolamine 1.5 mg 72 hr Transderm Patch RxNorm: 819140 1 Milligram(s) TD q72 hours No Start Date 11/25/2012 Inactive hydrocodone-acetaminophen 10 mg-325 mg tablet RxNorm: 2731838 1 Tablet(s) PO Q6 PRN No Start Date 08/07/2012 Inactive Phenergan with Codeine Syrup RxNorm: 5-10 Milliliter(s) PO Q6 PRN No Start Date 02/14/2012 Inactive Norvasc 10 mg Tab RxNorm: 005953 1 Tablet(s) PO daily No Start Date 12/01/2011 Inactive Zithromax Z-Sergio 250 mg Tab RxNorm: 412081 Tablet(s) PO No Start Date 08/01/2011 Inactive Medication Administered Medication Codes Instructions Start Date Status ceftriaxone 500 mg solution for injection RxNorm: 2161548 05/28/2018 No longer Active Kenalog 40 mg/mL suspension for injection RxNorm: 9979192 Milliliter 05/28/2018 No longer Active Kenalog 40 mg/mL suspension for injection RxNorm: 7423550 1Milliliter 01/19/2018 No longer Active ceftriaxone 500 mg solution for injection RxNorm: 1769411 500Milligram 01/19/2018 No longer Active Kenalog 40 mg/mL suspension for injection RxNorm: 5613832 1Milliliter 06/27/2017 No longer Active Kenalog 40 mg/mL suspension for injection RxNorm: 2448034 Milliliter 04/20/2017 No longer Active Kenalog 40 mg/mL suspension for injection RxNorm: 9507534 1Milliliter 03/14/2017 No longer Active ceftriaxone 500 mg solution for injection RxNorm: 0890726 1Milliliter 11/28/2016 No longer Active ceftriaxone 500 mg solution for injection RxNorm: 9461743 11/07/2016 No longer Active Kenalog 40 mg/mL suspension for injection RxNorm: 3851342 Milliliter 11/07/2016 No longer Active ceftriaxone 500 mg solution for injection RxNorm: 1953362 12/07/2015 No longer Active ceftriaxone 500 mg solution for injection RxNorm: 9942018 Milliliter 11/24/2015 No longer Active Kenalog 40 mg/mL suspension for injection RxNorm: 5965822 1Milliliter 11/24/2015 No longer Active ketorolac 60 mg/2 mL intramuscular solution RxNorm: 637112 Milliliter 08/27/2015 No longer Active promethazine 25 mg/mL injection solution RxNorm: 054524 Milliliter 08/27/2015 No longer Active ceftriaxone 500 mg solution for injection RxNorm: 7743810 08/10/2015 No longer Active Kenalog 40 mg/mL suspension for injection RxNorm: 1454957 Milliliter 08/10/2015 No longer Active ceftriaxone 500 mg solution for injection RxNorm: 7472123 1Milliliter 07/28/2015 No longer Active Kenalog 40 mg/mL suspension for injection RxNorm: 7635967 Milliliter 03/19/2015 No longer Active ceftriaxone 500 mg solution for injection RxNorm: 320893 06/23/2014 No longer Active Kenalog 40 mg/mL suspension for injection RxNorm: 6043370 Milliliter 06/23/2014 No longer Active Rocephin 500 mg solution for injection RxNorm: 558623 1mlMilliliter 09/24/2013 No longer Active Rocephin 500 mg solution for injection RxNorm: 565499 1Milliliter 09/19/2013 No longer Active Kenalog 40 mg/mL suspension for injection RxNorm: 7346449 1Milliliter 07/10/2013 No longer Active Rocephin 500 mg solution for injection RxNorm: 683945 1 07/10/2013 No longer Active Kenalog 40 mg/mL Susp for Injection RxNorm: 7614671 1Milliliter 09/24/2012 No longer Active Rocephin 500 mg Solution for Injection RxNorm: 746412 02/15/2012 No longer Active Influenza Virus Vaccine [...] Item Item Code Result Date Comp Metabolic Dzz217 NA 141 mEq/L 09/12/2017 Comp Metabolic Dtz369 K 4.1 mEq/L 09/12/2017 Comp Metabolic Knr463 CL 105 mEq/L 09/12/2017 Comp Metabolic Vnn719 CO2 30.0 mEq/L 09/12/2017 Comp Metabolic Ldf904 ANION GAP 10 09/12/2017 Comp Metabolic Ceo544 GLUCOSE 97 mg/dL 09/12/2017 Comp Metabolic Ncx933 Creat 0.7 mg/dL 09/12/2017 Comp Metabolic Qhq472 eGFR 91 ml/min/1.73m2 09/12/2017 Comp Metabolic Kzx228 BUN 18 mg/dL 09/12/2017 Comp Metabolic Lou958 B/C Ratio 26.5 Ratio 09/12/2017 Comp Metabolic Zgy327 CALCIUM 9.7 mg/dL 09/12/2017 Comp Metabolic Ofd459 ALK PHOS 60 U/L 09/12/2017 Comp Metabolic Jhe653 AST(SGOT) 22 U/L 09/12/2017 Comp Metabolic Lxi045 ALT(SGPT) 23 U/L 09/12/2017 Comp Metabolic Wpm099 BILI T 0.4 mg/dL 09/12/2017 Comp Metabolic Lxt573 ALBUMIN 3.8 g/dL 09/12/2017 Comp Metabolic Ovd252 TPRO 6.4 g/dL 09/12/2017 Comp Metabolic Lra178 GLOB 2.6 g/dL 09/12/2017 Comp Metabolic Xcm522 A/G Ratio 1.5 Ratio 09/12/2017 Comp Metabolic Ivx345 Osmo 283 mOsmo 09/12/2017 Cbc With Differential Ord2 WBC 7.90 K/ul 09/12/2017 Cbc With Differential Ord2 RBC 4.99 M/ul 09/12/2017 Cbc With Differential Ord2 HGB 15.3 g/dl 09/12/2017 Cbc With Differential Ord2 HCT 47.5 % 09/12/2017 Cbc With Differential Ord2 Neut% 57.0 % 09/12/2017 Cbc With Differential Ord2 Lymph% 31.1 % 09/12/2017 Cbc With Differential Ord2 MCV 95.2 fl 09/12/2017 Cbc With Differential Ord2 MCH 30.7 pg 09/12/2017 Cbc With Differential Ord2 [place]% 7.2 % 09/12/2017 Cbc With Differential Ord2 [...] 2.46 K/ul 09/12/2017 Cbc With Differential Ord2 [place] ABS# 0.6 K/ul 09/12/2017 Cbc With Differential [...] 96.5 fl 11/07/2016 Cbc With Differential Ord2 MCH 31.4 pg 11/07/2016 Cbc With Differential Ord2 [place]% 6.1 % 11/07/2016 Cbc With Differential Ord2 MCHC 32.6 pg 11/07/2016 Cbc With Differential Ord2 Eos% 2.8 % 11/07/2016 Cbc With Differential Ord2 Baso% 0.5 % 11/07/2016 Cbc With Differential Ord2 PLT 231 K/ul 11/07/2016 Cbc With Differential Ord2 Neut ABS# 5.87 K/ul 11/07/2016 Cbc With Differential Ord2 RDW 13.7 % 11/07/2016 Cbc With Differential Ord2 Lymph ABS# 2.48 K/ul 11/07/2016 Cbc With Differential Ord2 [place] ABS# 0.6 K/ul 11/07/2016 Cbc With Differential Ord2 Eos ABS# 0.3 K/ul 11/07/2016 Cbc With Differential Ord2 Baso ABS# 0.1 K/ul 11/07/2016 Comp Metabolic Tbz790 NA 139 mEq/L 11/07/2016 Comp Metabolic Did542 K 3.8 mEq/L 11/07/2016 Comp Metabolic Knl978 CL 106 mEq/L 11/07/2016 Comp Metabolic Hrn638 CO2 25.0 mEq/L 11/07/2016 Comp Metabolic Ziw944 ANION GAP 12 11/07/2016 Comp Metabolic Fwm568 GLUCOSE 98 mg/dL 11/07/2016 Comp Metabolic Toh336 Creat 0.8 mg/dL 11/07/2016 Comp Metabolic Wmy248 eGFR 71 ml/min/1.73m2 11/07/2016 Comp Metabolic Ycu506 BUN 36 mg/dL 11/07/2016 Comp Metabolic Air794 B/C Ratio 42.9 Ratio 11/07/2016 Comp Metabolic Akb079 CALCIUM 9.9 mg/dL 11/07/2016 Comp Metabolic Upf662 ALK PHOS 57 U/L 11/07/2016 Comp Metabolic Rte910 AST(SGOT) 24 U/L 11/07/2016 Comp Metabolic Kzx411 ALT(SGPT) 28 U/L 11/07/2016 Comp Metabolic Vxk557 BILI T 0.4 mg/dL 11/07/2016 Comp Metabolic Hqv325 ALBUMIN 4.2 g/dL 11/07/2016 Comp Metabolic Pny974 TPRO 7.0 g/dL 11/07/2016 Comp Metabolic Dhj049 GLOB 2.8 g/dL 11/07/2016 Comp Metabolic Uuk287 A/G Ratio 1.5 Ratio 11/07/2016 Comp Metabolic Qyc461 Osmo 286 mOsmo 11/07/2016 Free T4 Mzr788 FREE T4 0.75 ng/dL 11/07/2016 Tsh Ord6 hTSH II 3.46 uIU/mL 11/07/2016 Comp Metabolic Zpk192 NA 138 mEq/L 05/10/2016 Comp Metabolic Oxz642 K 3.8 mEq/L 05/10/2016 Comp Metabolic Dxp330 CL 102 mEq/L 05/10/2016 Comp Metabolic Arg224 CO2 29.0 mEq/L 05/10/2016 Comp Metabolic Whp802 ANION GAP 11 05/10/2016 Comp Metabolic Mgm940 GLUCOSE 107 mg/dL 05/10/2016 Comp Metabolic Rrv873 Creat 0.7 mg/dL 05/10/2016 Comp Metabolic Ibt355 eGFR 93 ml/min/1.73m2 05/10/2016 Comp Metabolic Gbv269 BUN 18 mg/dL 05/10/2016 Comp Metabolic Ear030 B/C Ratio 26.9 Ratio 05/10/2016 Comp Metabolic Sjw151 CALCIUM 9.8 mg/dL 05/10/2016 Comp Metabolic Ycr453 ALK PHOS 60 U/L 05/10/2016 Comp Metabolic Tvd558 AST(SGOT) 21 U/L 05/10/2016 Comp Metabolic Cdl420 ALT(SGPT) 23 U/L 05/10/2016 Comp Metabolic Flu577 BILI T 0.5 mg/dL 05/10/2016 Comp Metabolic Pjv005 ALBUMIN 4.1 g/dL 05/10/2016 Comp Metabolic Idr608 TPRO 6.7 g/dL 05/10/2016 Comp Metabolic Ppt157 GLOB 2.7 g/dL 05/10/2016 Comp Metabolic Wuw620 A/G Ratio 1.5 Ratio 05/10/2016 Comp Metabolic Drr000 Osmo 278 mOsmo 05/10/2016 Lipid Ord30 CHOL 169 mg/dL 05/10/2016 Lipid Ord30 HDL 50.0 mg/dl 05/10/2016 Lipid Ord30 TRIG 161 mg/dL 05/10/2016 Lipid Ord30 LDL 87 mg/dL 05/10/2016 Lipid Ord30 C/HDL 3.4 Ratio 05/10/2016 Comp Metabolic Wdd856 NA 137 mEq/L 06/12/2015 Comp Metabolic Gjh620 K 3.8 mEq/L 06/12/2015 Comp Metabolic Kbn692 CL 104 mEq/L 06/12/2015 Comp Metabolic Phb414 CO2 24.0 mEq/L 06/12/2015 Comp Metabolic Ytz289 ANION GAP 13 06/12/2015 Comp Metabolic Kyg702 GLUCOSE 92 mg/dL 06/12/2015 Comp Metabolic Rwz769 Creat 0.7 mg/dL 06/12/2015 Comp Metabolic Obc593 eGFR 87 ml/min/1.73m2 06/12/2015 Comp Metabolic Sji136 BUN 31 mg/dL 06/12/2015 Comp Metabolic Auq745 B/C Ratio 43.7 Ratio 06/12/2015 Comp Metabolic Ixi608 CALCIUM 10.0 mg/dL 06/12/2015 Comp Metabolic Und679 ALK PHOS 58 U/L 06/12/2015 Comp Metabolic Qdm578 AST(SGOT) 32 U/L 06/12/2015 Comp Metabolic Mhu154 ALT(SGPT) 33 U/L 06/12/2015 Comp Metabolic Wzl799 BILI T 0.5 mg/dL 06/12/2015 Comp Metabolic Lol987 ALBUMIN 4.1 g/dL 06/12/2015 Comp Metabolic Pyo976 TPRO 6.6 g/dL 06/12/2015 Comp Metabolic Nhb182 GLOB 2.5 g/dL 06/12/2015 Comp Metabolic Ztn228 A/G Ratio 1.6 Ratio 06/12/2015 Comp Metabolic Flc711 Osmo 280 mOsmo 06/12/2015 Cbc With Differential [...] Differential Ord2 RDW 14.2 % 06/12/2015 CBC 7693314 WBC 8.7 10e9/L 04/30/2013 CBC 8867831 RBC 4.63 10e12/L 04/30/2013 CBC 5963172 HGB 14.1 g/dL 04/30/2013 CBC 5531310 HCT DET 42.2 % 04/30/2013 CBC 7007315 MCV 91.1 fL 04/30/2013 CBC 9845551 MCH 30.5 pg 04/30/2013 CBC 1094838 MCHC 33.4 g/dL 04/30/2013 CBC 1437948 PLT 248 10e9/L 04/30/2013 CBC 5391467 MPV 12.1 fL 04/30/2013 CBC 5678391 LARA % 59.0 % 04/30/2013 CBC 2306611 LY % 27.6 % 04/30/2013 CBC 9198440 MON % 8.0 % 04/30/2013 CBC 8573723 EOS % 4.8 % 04/30/2013 CBC 7767467 BASO % 0.6 % 04/30/2013 CBC 3808313 RDW 13.3 % 04/30/2013 CBC 3761512 ABS LARA 5.13 10e9/L 04/30/2013 CBC 0512964 ABS LYMPH 2.40 10e9/L 04/30/2013 CBC 2810934 ABS MONO 0.70 10e9/L 04/30/2013 CBC 4114570 ABS EOS 0.42 10e9/L 04/30/2013 CBC 7362609 ABS BASO 0.05 10e9/L 04/30/2013 CBC 6970778 RDW-SD 43.1 fL 04/30/2013 TSH 7864334 TSH 4.339 uIU/ML 04/30/2013 A1C HPLC 4567364 A1C HPLC 45426-6 5.6 % 04/30/2013 FREE T4 0519100 FREE T4 0.84 NG/DL 04/30/2013 GFR CALC 7804460 GFR AA >60 ML/MIN 04/30/2013 GFR CALC 5298522 GFR NON-AA >60 ML/MIN 04/30/2013 CHEM 14 3387526 AST 22 U/L 04/30/2013 CHEM 14 0195075 ALT 22 IU/L 04/30/2013 CHEM 14 3816159 BUN 24 MG/DL 04/30/2013 CHEM 14 8726572 ALBUMIN 4.2 GM/DL 04/30/2013 CHEM 14 9776286 CHLORIDE 107 MMOL/L 04/30/2013 CHEM 14 7037089 BILI TOT 0.3 MG/DL 04/30/2013 CHEM 14 0607067 ALK PHOS 88 U/L 04/30/2013 CHEM 14 8451690 SODIUM 141 MMOL/L 04/30/2013 CHEM 14 2709525 CREATININE 0.60 MG/DL 04/30/2013 CHEM 14 4857084 CALCIUM 9.9 MG/DL 04/30/2013 CHEM 14 9442442 POTASSIUM 3.7 MMOL/L 04/30/2013 CHEM 14 0065876 PROT TOT 6.6 GM/DL 04/30/2013 CHEM 14 4243643 GLUCOSE 123 MG/DL 04/30/2013 CHEM 14 2767621 BICARB 25 MMOL/L 04/30/2013 CHEM 14 9310707 ANION GAP 9 MEQ/L 04/30/2013 LIPID GRP HDL TEST 46 MG/DL 04/30/2013 LIPID GRP TRIG 148 MG/DL 04/30/2013 LIPID GRP TEST LDL 75 MG/DL 04/30/2013 LIPID GRP CHOL 151 MG/DL 04/30/2013 LIPID GRP RCHOL/HDL 3.28 RATIO 04/30/2013 TSH 5203907 TSH 3.341 uIU/ML 11/29/2012 CBC 7648929 WBC 8.4 10e9/L 11/29/2012 CBC 4891203 RBC 4.77 10e12/L 11/29/2012 CBC 8338086 HGB 14.9 g/dL 11/29/2012 CBC 1067069 HCT DET 44.2 % 11/29/2012 CBC 8352264 MCV 92.7 fL 11/29/2012 CBC 4252343 MCH 31.2 pg 11/29/2012 CBC 5947449 MCHC 33.7 g/dL 11/29/2012 CBC 5567375 PLT 253 10e9/L 11/29/2012 CBC 8330532 MPV 11.8 fL 11/29/2012 CBC 3833767 LARA % 54.9 % 11/29/2012 CBC 4374729 LY % 29.0 % 11/29/2012 CBC 7696885 MON % 10.4 % 11/29/2012 CBC 5497464 EOS % 5.1 % 11/29/2012 CBC 5814970 BASO % 0.6 % 11/29/2012 CBC 4571245 RDW 13.8 % 11/29/2012 CBC 5737039 ABS LARA 4.61 10e9/L 11/29/2012 CBC 0011490 ABS LYMPH 2.44 10e9/L 11/29/2012 CBC 1058712 ABS MONO 0.87 10e9/L 11/29/2012 CBC 5801367 ABS EOS 0.43 10e9/L 11/29/2012 CBC 5485471 ABS BASO 0.05 10e9/L 11/29/2012 CBC 7458381 RDW-SD 45.9 fL 11/29/2012 CHEM 14 7517501 AST 25 U/L 11/29/2012 CHEM 14 1352658 ALT 26 IU/L 11/29/2012 CHEM 14 0032226 BUN 25 MG/DL 11/29/2012 CHEM 14 4885939 ALBUMIN 4.4 GM/DL 11/29/2012 CHEM 14 2891868 CHLORIDE 106 MMOL/L 11/29/2012 CHEM 14 3060019 BILI TOT 0.4 MG/DL 11/29/2012 CHEM 14 2897747 ALK PHOS 86 U/L 11/29/2012 CHEM 14 1271030 SODIUM 141 MMOL/L 11/29/2012 CHEM 14 8054084 CREATININE 0.80 MG/DL 11/29/2012 CHEM 14 6546690 CALCIUM 9.7 MG/DL 11/29/2012 CHEM 14 5785070 POTASSIUM 4.0 MMOL/L 11/29/2012 CHEM 14 3582594 PROT TOT 6.6 GM/DL 11/29/2012 CHEM 14 0830099 GLUCOSE 112 MG/DL 11/29/2012 CHEM 14 5644221 BICARB 29 MMOL/L 11/29/2012 CHEM 14 2110546 ANION GAP 6 MEQ/L 11/29/2012 A1C HPLC 0450278 A1C HPLC 89125-2 5.5 % 11/29/2012 LIPID GRP HDL TEST 54 MG/DL 11/29/2012 LIPID GRP TRIG 77 MG/DL 11/29/2012 LIPID GRP TEST LDL 78 MG/DL 11/29/2012 LIPID GRP CHOL 147 MG/DL 11/29/2012 LIPID GRP RCHOL/HDL 2.72 RATIO 11/29/2012 FREE T4 4973562 FREE T4 1.23 NG/DL 11/29/2012 GFR CALC 1279557 GFR AA >60 ML/MIN 11/29/2012 GFR CALC 9752279 GFR NON-AA >60 ML/MIN 11/29/2012 CHEM 14 8633847 AST 23 U/L 08/07/2012 CHEM 14 4524645 ALT 34 IU/L 08/07/2012 CHEM 14 9977779 BUN 26 MG/DL 08/07/2012 CHEM 14 8498277 ALBUMIN 4.4 GM/DL 08/07/2012 CHEM 14 0676890 CHLORIDE 105 MMOL/L 08/07/2012 CHEM 14 5664394 BILI TOT 0.5 MG/DL 08/07/2012 CHEM 14 3990158 ALK PHOS 79 U/L 08/07/2012 CHEM 14 5307978 SODIUM 140 MMOL/L 08/07/2012 CHEM 14 7631569 CREATININE 0.71 MG/DL 08/07/2012 CHEM 14 8358210 CALCIUM 10.4 MG/DL 08/07/2012 CHEM 14 9105930 POTASSIUM 3.8 MMOL/L 08/07/2012 CHEM 14 5373299 PROT TOT 6.8 GM/DL 08/07/2012 CHEM 14 2139198 GLUCOSE 104 MG/DL 08/07/2012 CHEM 14 6570813 BICARB 27 MMOL/L 08/07/2012 CHEM 14 4546606 ANION GAP 8 MEQ/L 08/07/2012 A1C HPLC 4745625 A1C HPLC 33927-5 5.4 % 08/07/2012 FREE T4 4318020 FREE T4 1.11 NG/DL 08/07/2012 LIPID GRP HDL TEST 50 MG/DL 08/07/2012 LIPID GRP TRIG 127 MG/DL 08/07/2012 LIPID GRP TEST LDL 93 MG/DL 08/07/2012 LIPID GRP CHOL 168 MG/DL 08/07/2012 LIPID GRP RCHOL/HDL 3.36 RATIO 08/07/2012 CBC 8474819 WBC 8.7 10e9/L 08/07/2012 CBC 2699976 RBC 4.67 10e12/L 08/07/2012 CBC 1312790 HGB 14.4 g/dL 08/07/2012 CBC 7230128 HCT DET 42.8 % 08/07/2012 CBC 7099867 MCV 91.6 fL 08/07/2012 CBC 2480274 MCH 30.8 pg 08/07/2012 CBC 7527877 MCHC 33.6 g/dL 08/07/2012 CBC 9819627 PLT 271 10e9/L 08/07/2012 CBC 7633589 MPV 12.3 fL 08/07/2012 CBC 1689501 LARA % 50.6 % 08/07/2012 CBC 9090754 LY % 34.9 % 08/07/2012 CBC 0134170 MON % 9.1 % 08/07/2012 CBC 1916520 EOS % 5.1 % 08/07/2012 CBC 7047506 BASO % 0.3 % 08/07/2012 CBC 4673725 RDW 13.6 % 08/07/2012 CBC 6552801 ABS LARA 4.40 10e9/L 08/07/2012 CBC 7639778 ABS LYMPH 3.04 10e9/L 08/07/2012 CBC 3387311 ABS MONO 0.79 10e9/L 08/07/2012 CBC 4691361 ABS EOS 0.44 10e9/L 08/07/2012 CBC 3741707 ABS BASO 0.03 10e9/L 08/07/2012 CBC 4961883 RDW-SD 44.1 fL 08/07/2012 TSH 5609543 TSH 7.419 uIU/ML 08/07/2012 GFR CALC 1094151 GFR AA >60 ML/MIN 08/07/2012 GFR CALC 0659102 GFR NON-AA >60 ML/MIN 08/07/2012 A1C HPLC 1264894 A1C HPLC 91320-4 5.3 % 02/21/2012 TSH 2509550 TSH 0.832 uIU/ML 02/16/2012 FREE T4 3426486 FREE T4 1.04 NG/DL 02/16/2012 GFR CALC 2623056 GFR AA >60 ML/MIN 02/16/2012 GFR CALC 3846326 GFR NON-AA >60 ML/MIN 02/16/2012 BMP 8011388 GLUCOSE 112 MG/DL 02/16/2012 BMP 9592749 CREATININE 0.65 MG/DL 02/16/2012 BMP 7895860 BUN 17 MG/DL 02/16/2012 BMP 9617658 SODIUM 144 MMOL/L 02/16/2012 BMP 6375019 POTASSIUM 4.0 MMOL/L 02/16/2012 BMP 8057180 CHLORIDE 107 MMOL/L 02/16/2012 BMP 9950321 BICARB 29 MMOL/L 02/16/2012 BMP 3195938 ANION GAP 8 MEQ/L 02/16/2012 BMP 1416350 CALCIUM 9.5 MG/DL 02/16/2012 CBC 3186217 WBC 7.1 10e9/L 02/16/2012 CBC 8281850 RBC 4.47 10e12/L 02/16/2012 CBC 0707894 HGB 13.5 g/dL 02/16/2012 CBC 0473208 HCT DET 40.7 % 02/16/2012 CBC 9869531 MCV 91.1 fL 02/16/2012 CBC 8312584 MCH 30.2 pg 02/16/2012 CBC 5847349 MCHC 33.2 g/dL 02/16/2012 CBC 9126974 PLT 238 10e9/L 02/16/2012 CBC 9674045 MPV 11.4 fL 02/16/2012 CBC 2430222 LARA % 55.7 % 02/16/2012 CBC 4044396 LY % 29.6 % 02/16/2012 CBC 4926923 MON % 9.2 % 02/16/2012 CBC 4911665 EOS % 5.1 % 02/16/2012 CBC 7798611 BASO % 0.4 % 02/16/2012 CBC 5531817 RDW 13.0 % 02/16/2012 CBC 8642028 ABS LARA 3.95 10e9/L 02/16/2012 CBC 2100139 ABS LYMPH 2.10 10e9/L 02/16/2012 CBC 0872815 ABS MONO 0.65 10e9/L 02/16/2012 CBC 9117172 ABS EOS 0.36 10e9/L 02/16/2012 CBC 2469923 ABS BASO 0.03 10e9/L 02/16/2012 CBC 3710537 RDW-SD 42.4 fL 02/16/2012 URINALYSIS NONAUTO W/O SCOPE 93084 Specific [place] 1.015 DateTime(Free Text in Aprima) URINALYSIS NONAUTO W/O SCOPE 15734 PH 7 DateTime(Free Text in Aprima) URINALYSIS NONAUTO W/O SCOPE 60789 GLUCOSE neg DateTime(Free Text in Aprima) URINALYSIS NONAUTO W/O SCOPE 37554 Protein 1+ DateTime(Free Text in Apr[employer]) URINALYSIS NONAUTO W/O SCOPE 15072 Blood neg DateTime(Free Text in Aprima) URINALYSIS NONAUTO W/O SCOPE 63202 Bilirubin neg DateTime(Free Text in Apr[employer]) URINALYSIS NONAUTO W/O SCOPE 84094 Ketones neg DateTime(Free Text in Apr[employer]) URINALYSIS NONAUTO W/O SCOPE 54960 Urobilinogen neg DateTime(Free Text in Aprima) URINALYSIS NONAUTO W/O SCOPE 56419 Nitrite postive DateTime(Free Text in Aprima) URINALYSIS NONAUTO W/O SCOPE 96563 Leukocytes 3+ DateTime(Free Text in Aprima) URINALYSIS NONAUTO W/O SCOPE 89610 Specific [place] 1.030 DateTime(Free Text in Aprima) URINALYSIS NONAUTO W/O SCOPE 26009 PH 6 DateTime(Free Text in Aprima) URINALYSIS NONAUTO W/O SCOPE 58087 GLUCOSE neg DateTime(Free Text in Aprima) URINALYSIS NONAUTO W/O SCOPE 04558 Protein neg DateTime(Free Text in Aprima) URINALYSIS NONAUTO W/O SCOPE 16941 Blood neg DateTime(Free Text in Aprima) URINALYSIS NONAUTO W/O SCOPE 70495 Bilirubin neg DateTime(Free Text in Aprima) URINALYSIS NONAUTO W/O SCOPE 32488 Ketones neg DateTime(Free Text in Aprima) URINALYSIS NONAUTO W/O SCOPE 73489 Urobilinogen neg DateTime(Free Text in Aprima) URINALYSIS NONAUTO W/O SCOPE 81141 Nitrite neg DateTime(Free Text in Aprima) URINALYSIS NONAUTO W/O SCOPE 76678 Leukocytes trace DateTime(Free Text in Aprima) URINALYSIS NONAUTO W/O SCOPE 51468 Specific [place] 1.005 DateTime(Free Text in Aprima) URINALYSIS NONAUTO W/O SCOPE 36603 PH 5 DateTime(Free Text in Aprima) URINALYSIS NONAUTO W/O SCOPE 19744 GLUCOSE neg DateTime(Free Text in Aprima) URINALYSIS NONAUTO W/O SCOPE 01624 Protein neg DateTime(Free Text in Aprima) URINALYSIS NONAUTO W/O SCOPE 78861 Blood neg DateTime(Free Text in Aprima) URINALYSIS NONAUTO W/O SCOPE 91942 Bilirubin neg DateTime(Free Text in Aprima) URINALYSIS NONAUTO W/O SCOPE 29331 Ketones neg DateTime(Free Text in Aprima) URINALYSIS NONAUTO W/O SCOPE 05888 Urobilinogen neg DateTime(Free Text in Aprima) URINALYSIS NONAUTO W/O SCOPE 25698 Nitrite neg DateTime(Free Text in Aprima) URINALYSIS NONAUTO W/O SCOPE 78513 Leukocytes neg DateTime(Free Text in Aprima) UA 40402 Specific [place] 1.030 DateTime(Free Text in Aprima) UA 60493 PH 5 DateTime(Free Text in Aprima) UA 47806 GLUCOSE neg DateTime(Free Text in Aprima) UA 83954 Protein trace DateTime(Free Text in Aprima) UA 77848 Blood large DateTime(Free Text in Aprima) UA 12275 Bilirubin neg DateTime(Free Text in Apr) UA 87179 Ketones neg DateTime(Free Text in ) UA 32165 Urobilinogen neg DateTime(Free Text in Apr) UA 66797 Nitrite neg DateTime(Free Text in Apr) UA 42609 Leukocytes large DateTime(Free Text in ) Review [...] Effective Dates Notes Full Exam - General 1995 Constitutional general appearance Overall: well developed 07/16/2018 [...] retractions 11/21/2013 None Full Exam - General 1995 Respiratory respiratory effort/rhythm Overall: normal rate 11/21/2013 [...] Codes Date URINALYSIS NONAUTO W/O SCOPE CPT-4: 05386 07/10/2018 TRIAMCINOLONE ACET INJ NOS CPT-4: J3301 05/28/2018 ROCEPHIN, PER 250 MG CPT- 4: J0696 05/28/2018 ROCEPHIN, PER 250 MG CPT- 4: J0696 01/19/2018 TRIAMCINOLONE ACET INJ NOS CPT-4: J3301 01/19/2018 PPPS, SUBSEQ VISIT CPT- 4: G0439 11/23/2017 TRIAMCINOLONE ACET INJ NOS CPT-4: J3301 06/27/2017 THER/PROPH/DIAG INJ SC/IM CPT-4: 65983 04/20/2017 TRIAMCINOLONE ACET INJ NOS CPT-4: J3301 04/20/2017 TRIAMCINOLONE ACET INJ NOS CPT-4: J3301 03/14/2017 ROCEPHIN, PER 250 MG CPT- 4: J0696 03/14/2017 DESTRUCT PREMALG LESION CPT-4: 01488 12/05/2016 DESTRUCT PREMALG LES 2-14 CPT-4: 43278 12/05/2016 URINALYSIS NONAUTO W/O SCOPE CPT-4: 37630 11/28/2016 ROCEPHIN, PER 250 MG CPT- 4: J0696 11/28/2016 PPPS, SUBSEQ VISIT CPT- 4: G0439 11/07/2016 THER/PROPH/DIAG INJ SC/IM CPT-4: 31655 11/07/2016 TRIAMCINOLONE ACET INJ NOS CPT-4: J3301 11/07/2016 ROCEPHIN, PER 250 MG CPT- 4: J0696 11/07/2016 THER/PROPH/DIAG INJ SC/IM CPT-4: 27853 08/15/2016 TRIAMCINOLONE ACET INJ NOS CPT-4: J3301 08/15/2016 ROCEPHIN, PER 250 MG CPT- 4: J0696 08/15/2016 URINALYSIS NONAUTO W/O SCOPE CPT-4: 48328 05/05/2016 ROCEPHIN, PER 250 MG CPT- 4: J0696 12/07/2015 TRIAMCINOLONE ACET INJ NOS CPT-4: J3301 11/24/2015 ROCEPHIN, PER 250 MG CPT- 4: J0696 11/24/2015 THER/PROPH/DIAG INJ SC/IM CPT-4: 23609 11/24/2015 THER/PROPH/DIAG INJ SC/IM CPT-4: 77328 08/27/2015 KETOROLAC TROMETHAMINE INJ CPT-4: J1885 08/27/2015 PROMETHAZINE HCL INJECTION CPT-4: J2550 08/27/2015 THER/PROPH/DIAG INJ SC/IM CPT-4: 09972 08/10/2015 TRIAMCINOLONE ACET INJ NOS CPT-4: J3301 08/10/2015 ROCEPHIN, PER 250 MG CPT- 4: J0696 08/10/2015 C WOUN RTS (CULTURE OTHR SPECIMN AEROBIC) CPT-4: 45912 07/28/2015 THER/PROPH/DIAG INJ SC/IM CPT-4: 25376 03/19/2015 TRIAMCINOLONE ACET INJ NOS CPT-4: J3301 03/19/2015 ROCEPHIN, PER 250 MG CPT- 4: J0696 06/23/2014 TRIAMCINOLONE ACET INJ NOS CPT-4: J3301 06/23/2014 INJ TRIGGER POINT 1/2 MUSCL CPT-4: 84204 06/05/2014 URINALYSIS NONAUTO W/O SCOPE CPT-4: 08445 02/11/2014 URINALYSIS NONAUTO W/O SCOPE CPT-4: 24153 10/15/2013 ROCEPHIN, PER 250 MG CPT- 4: J0696 09/24/2013 THER/PROPH/DIAG INJ SC/IM CPT-4: 65670 09/19/2013 ROCEPHIN, PER 250 MG CPT- 4: J0696 09/19/2013 PRESCRIP TRANSMIT VIA ERX SY CPT-4: G8553 08/05/2013 ROCEPHIN, PER 250 MG CPT- 4: J0696 07/10/2013 THER/PROPH/DIAG INJ SC/IM CPT-4: 13821 07/10/2013 TRIAMCINOLONE ACET INJ NOS CPT-4: J3301 07/10/2013 PRESCRIP TRANSMIT VIA ERX SY CPT-4: G8553 07/10/2013 90058 EST. PATIENT, LEVEL III CPT-4: 03736 06/03/2013 PRESCRIP TRANSMIT VIA ERX SY CPT-4: G8553 06/03/2013 PRESCRIP TRANSMIT VIA ERX SY CPT-4: G8553 05/07/2013 ROUTINE VENIPUNCTURE CPT- 4: 92495 04/30/2013 ROUTINE VENIPUNCTURE CPT- 4: 88302 11/29/2012 TRIAMCINOLONE ACET INJ NOS CPT-4: J3301 09/24/2012 THER/PROPH/DIAG INJ SC/IM CPT-4: 24109 09/24/2012 URINALYSIS NONAUTO W/O SCOPE CPT-4: 69063 09/24/2012 PRESCRIP TRANSMIT VIA ERX SY CPT-4: G8553 09/24/2012 PRESCRIP TRANSMIT VIA ERX SY CPT-4: G8553 09/10/2012 PRESCRIP TRANSMIT VIA ERX SY CPT-4: G8553 08/08/2012 ROUTINE VENIPUNCTURE CPT- 4: 60613 08/07/2012 ROUTINE VENIPUNCTURE CPT- 4: 95093 02/16/2012 URINALYSIS NONAUTO W/O SCOPE CPT-4: 25965 02/15/2012 ROCEPHIN, PER 250 MG CPT- 4: J0696 02/15/2012 PRESCRIP TRANSMIT VIA ERX SY CPT-4: G8553 02/15/2012 ROUTINE VENIPUNCTURE CPT- 4: 60589 11/08/2011 ROCEPHIN, PER 250 MG CPT- 4: J0696 07/14/2011 THER/PROPH/DIAG INJ SC/IM CPT-4: 71614 07/14/2011 Influenza Virus Vaccine, Split Virus, >3 Yrs, IM CPT-4: 27846 05/23/2011 IMMUNIZATION ADMIN CPT- 4: 00742 05/23/2011 THER/PROPH/DIAG INJ SC/IM CPT-4: 38636 05/03/2011 ROCEPHIN, PER 250 MG CPT- 4: J0696 05/03/2011 TRIAMCINOLONE ACET INJ NOS CPT-4: J3301 05/03/2011 Vital Signs Date Vital 07/16/2018 Blood Pressure 1: 142/80 Code: 8480-6 BMI: 31.1 Code: 63300-3 Heart Rate 1: 78 bpm Height: 4'11" SpO2: 98% Weight: 154 lbs 07/10/2018 Blood Pressure 1: 156/82 Code: 8480-6 BMI: 31.1 Code: 73868-7 Heart Rate 1: 63 bpm Height: 4'11" SpO2: 99% Weight: 154 lbs 05/28/2018 Blood Pressure 1: 142/80 Code: 8480-6 Heart Rate 1: 82 bpm Height: SpO2: 97% Temperature: 35.9 (C) / 96.6 (F) Weight: 02/07/2018 Height: Weight: 01/19/2018 Blood Pressure 1: 128/76 Code: 8480-6 BMI: 31.2 Code: 41946-3 Heart Rate 1: 71 bpm Height: 4'11" SpO2: 96% Temperature: 36.5 (C) / 97.7 (F) Weight: 154 lbs 8 oz 11/23/2017 Blood Pressure 1: 146/80 Code: 8480-6 BMI: 31.7 Code: 43961-6 Heart Rate 1: 64 bpm Height: 4'11" SpO2: 97% Waist Measure (cm): 89 cm Weight: 157 lbs 09/12/2017 Blood Pressure 1: 140/86 Code: 8480-6 Heart Rate 1: 62 bpm SpO2: 96% Temperature: 36.6 (C) / 97.8 (F) Weight: 153 lbs 07/25/2017 Blood Pressure 1: 140/72 Code: 8480-6 BMI: 31.3 Code: 83180-1 Heart Rate 1: 76 bpm Height: 4'11" SpO2: 97% Temperature: 37.2 (C) / 99.0 (F) Weight: 155 lbs 06/27/2017 Blood Pressure 1: 144/84 Code: 8480-6 BMI: 31.1 Code: 38364-5 Heart Rate 1: 63 bpm Height: 4'11" SpO2: 99% Temperature: 36.4 (C) / 97.6 (F) Weight: 154 lbs 05/08/2017 Blood Pressure 1: 142/86 Code: 8480-6 BMI: 30.9 Code: 72274-5 Height: 4'11" Temperature: 36.3 (C) / 97.4 (F) Weight: 153 lbs 03/14/2017 Blood Pressure 1: 146/82 Code: 8480-6 BMI: 30.9 Code: 76687-7 Heart Rate 1: 64 bpm Height: 4'11" SpO2: 94% Weight: 153 lbs 02/20/2017 Blood Pressure 1: 142/80 Code: 8480-6 BMI: 30.9 Code: 17882-9 Heart Rate 1: 75 bpm Height: 4'11" SpO2: 97% Weight: 153 lbs 02/06/2017 Blood Pressure 1: 138/90 Code: 8480-6 BMI: 31.5 Code: 09564-2 Heart Rate 1: 61 bpm Height: 4'11" SpO2: 98% Weight: 156 lbs 12/05/2016 Blood Pressure 1: 122/72 Code: 8480-6 Heart Rate 1: 59 bpm Height: 4'11" SpO2: 98% Weight: 11/28/2016 Blood Pressure 1: 154/86 Code: 8480-6 BMI: 31.3 Code: 21749-9 Heart Rate 1: 64 bpm Height: 4'11" SpO2: 94% Temperature: 36.2 (C) / 97.2 (F) Weight: 155 lbs 11/07/2016 Blood Pressure 1: 128/64 Code: 8480-6 BMI: 31.5 Code: 30143-1 Heart Rate 1: 59 bpm Height: 4'11" SpO2: 97% Weight: 156 lbs 08/15/2016 Blood Pressure 1: 110/62 Code: 8480-6 BMI: 31.5 Code: 28031-3 Heart Rate 1: 76 bpm Height: 4'11" SpO2: 97% Weight: 156 lbs 06/07/2016 Blood Pressure 1: 120/80 Code: 8480-6 BMI: 32.9 Code: 81008-9 Heart Rate 1: 63 bpm Height: 4'11" SpO2: 93% Temperature: 36.5 (C) / 97.7 (F) Weight: 163 lbs 03/15/2016 Blood Pressure 1: 90/42 Code: 8480-6 Heart Rate 1: 65 bpm SpO2: 94% 03/14/2016 Blood Pressure 1: 188/110 Code: 8480-6 Heart Rate 1: 68 bpm SpO2: 96% 02/22/2016 Blood Pressure 1: 158/80 Code: 8480-6 BMI: 32.7 Code: 97533-2 Heart Rate 1: 71 bpm Height: 4'11" SpO2: 95% Weight: 162 lbs 12/07/2015 Blood Pressure 1: 140/88 Code: 8480-6 BMI: 32.9 Code: 28244-2 Heart Rate 1: 99 bpm Height: 4'11" SpO2: 94% Temperature: 35.9 (C) / 96.6 (F) Weight: 163 lbs 11/24/2015 Blood Pressure 1: 144/78 Code: 8480-6 BMI: 33.7 Code: 73705-1 Heart Rate 1: 60 bpm Height: 4'11" SpO2: 98% Temperature: 36.6 (C) / 97.9 (F) Weight: 167 lbs 08/27/2015 Blood Pressure 1: 164/82 Code: 8480-6 BMI: 32.3 Code: 21925-0 Heart Rate 1: 60 bpm Height: 4'11" SpO2: 93% Weight: 160 lbs 08/10/2015 Blood Pressure 1: 130/60 Code: 8480-6 BMI: 32.5 Code: 12171-9 Heart Rate 1: 64 bpm Height: 4'11" SpO2: 97% Weight: 161 lbs 07/28/2015 Blood Pressure 1: 124/68 Code: 8480-6 BMI: 32.5 Code: 02714-1 Heart Rate 1: 69 bpm Height: 4'11" SpO2: 97% Weight: 161 lbs 06/11/2015 Blood Pressure 1: 148/80 Code: 8480-6 BMI: 32.9 Code: 42852-5 Heart Rate 1: 70 bpm Height: 4'11" SpO2: 94% Weight: 163 lbs 03/19/2015 Blood Pressure 1: 150/102 Code: 8480-6 Blood Pressure 2: 152/92 Code: 8480-6 BMI: 32.5 Code: 85833-1 Heart Rate 1: 71 bpm Height: 4'11" SpO2: 96% Weight: 161 lbs 01/07/2015 Blood Pressure 1: 126/84 Code: 8480-6 Heart Rate 1: 80 bpm Height: 4'11" 09/23/2014 Blood Pressure 1: 112/72 Code: 8480-6 BMI: 33.9 Code: 07433-0 Heart Rate 1: 72 bpm Height: 4'11" Weight: 168 lbs 08/05/2014 Blood Pressure 1: 140/86 Code: 8480-6 BMI: 33.3 Code: 83780-8 Height: 4'11" Weight: 165 lbs 06/23/2014 Blood Pressure 1: 132/70 Code: 8480-6 BMI: 32.9 Code: 72312-9 Heart Rate 1: 58 bpm Height: 4'11" Temperature: 36.0 (C) / 96.8 (F) Weight: 163 lbs 06/05/2014 Blood Pressure 1: 121/85 Code: 8480-6 BMI: 34.3 Code: 08296-6 Height: 4'11" Weight: 170 lbs 04/03/2014 Blood Pressure 1: 128/80 Code: 8480-6 Heart Rate 1: 88 bpm Weight: 167 lbs 03/07/2014 Blood Pressure 1: 122/82 Code: 8480-6 BMI: 33.9 Code: 92792-1 Heart Rate 1: 68 bpm Height: 4'11" Weight: 168 lbs 11/21/2013 Blood Pressure 1: 100/58 Code: 8480-6 BMI: 33.7 Code: 02864-2 Heart Rate 1: 64 bpm Height: 4'11" Weight: 167 lbs 09/24/2013 Blood Pressure 1: 148/88 Code: 8480-6 Heart Rate 1: 68 bpm Weight: 09/19/2013 Blood Pressure 1: 120/80 Code: 8480-6 BMI: 33.9 Code: 60558-2 Heart Rate 1: 80 bpm Height: 4'11" Temperature: 36.9 (C) / 98.5 (F) Weight: 168 lbs 08/05/2013 Blood Pressure 1: 128/80 Code: 8480-6 BMI: 34.3 Code: 14081-2 Heart Rate 1: 64 bpm Height: 4'11" Temperature: 36.2 (C) / 97.2 (F) Weight: 170 lbs 07/10/2013 Blood Pressure 1: 120/84 Code: 8480-6 BMI: 36.0 Code: 89267-6 Heart Rate 1: 90 bpm Height: 4'11" SpO2: 97% Temperature: 36.8 (C) / 98.2 (F) Weight: 178 lbs 06/03/2013 Blood Pressure 1: 136/94 Code: 8480-6 BMI: 34.7 Code: 14623-3 Heart Rate 1: 68 bpm Height: 4'11" Temperature: 36.7 (C) / 98.0 (F) Weight: 172 lbs 05/13/2013 Blood Pressure 1: 132/90 Code: 8480-6 Heart Rate 1: 68 bpm 05/07/2013 Blood Pressure 1: 168/100 Code: 8480-6 BMI: 34.3 Code: 65635-7 Heart Rate 1: 76 bpm Height: 4'11" Weight: 170 lbs 12/03/2012 Blood Pressure 1: 142/78 Code: 8480-6 BMI: 33.5 Code: 66471-0 Heart Rate 1: 76 bpm Height: 4'11" Weight: 166 lbs 09/24/2012 Blood Pressure 1: 116/70 Code: 8480-6 Heart Rate 1: 68 bpm Respiratory Rate: 16 bpm Temperature: 36.9 (C) / 98.4 (F) Weight: 162 lbs 09/10/2012 Blood Pressure 1: 116/80 Code: 8480-6 BMI: 33.7 Code: 04098-1 Heart Rate 1: 76 bpm Height: 4'11" [...] 1: 149/85 Code: 8480-6 BMI: 32.9 Code: 21168-7 Heart Rate 1: 79 bpm Height: 4'11" Weight: 164 lbs 05/03/2011 Blood Pressure 1: 122/79 Code: 8480-6 BMI: 30.8 Code: 12738-4 Heart Rate 1: 72 bpm Height: 5'1" Weight: 163 lbs 04/25/2011 Blood Pressure 1: 137/84 Code: 8480-6 BMI: 31.0 Code: 03570-0 Heart Rate 1: 63 bpm Height: 5'1" [...] surg in december. then took trip to [facility] to see mother and has had [...] Quality chronic 08/01/2011 states went shopping on [employer] over night without taking any of medications [...] data Encounters Encounter Performer Location Codes Date [id number] EST. PATIENT, LEVEL III Diagnosis: Essential (primary) hypertension[ICD10: I10] Diagnosis: Generalized anxiety disorder[ICD10: F41.1] Isabelle Goldman MD, [facility] CPT-4: 12538 07/16/2018 ([id number]) 59009 EST. PATIENT, LEVEL III Diagnosis: Acute recurrent maxillary sinusitis[ICD10: J01.01] Diagnosis: Frequency of micturition[ICD10: R35.0] Diagnosis: Low back pain[ICD10: M54.5] Shahida Goldman MD, [facility] CPT-4: 00019 07/10/2018 [id number]) 85825 EST. PATIENT, LEVEL III Diagnosis: Acute recurrent maxillary sinusitis[ICD10: J01.01] Shahida Goldman MD, [facility] CPT-4: 13524 05/28/2018 ([id number]) Miscellaneous no charge Diagnosis: Laceration without foreign body, left lower leg, subsequent encounter[ICD10: S81.812D] Diagnosis: Laceration without foreign body, right lower leg, subsequent encounter[ICD10: S81.811D] Isabelle Goldman MD, [facility] CPT-4: 65787 02/08/2018 85550 EST. PATIENT, LEVEL III Diagnosis: Cellulitis of left lower limb[ICD10: L03.116] Diagnosis: Cellulitis of right lower limb[ICD10: L03.115] Diagnosis: Laceration without foreign body, left lower leg, initial encounter[ICD10: S81.812A] Diagnosis: Laceration without foreign body, right lower leg, initial encounter[ICD10: S81.811A] Isabelle Goldman MD, [facility] CPT-4: 66078 02/07/2018 [id number]) 54947 EST. PATIENT, LEVEL IV Diagnosis: Primary generalized (osteo)arthritis[ICD10: M15.0] Diagnosis: Acute recurrent maxillary sinusitis[ICD10: J01.01] Diagnosis: Low back pain[ICD10: M54.5] Diagnosis: Other allergic rhinitis[ICD10: J30.89] Diagnosis: Obstructive sleep apnea (adult) (pediatric)[ICD10: G47.33] Shahida Goldman MD, [facility] CPT-4: 63937 01/19/2018 48528 EST. PATIENT, LEVEL IV Diagnosis: Diarrhea, unspecified[ICD10: R19.7] Diagnosis: Generalized abdominal pain[ICD10: R10.84] Diagnosis: Other allergic rhinitis[ICD10: J30.89] Diagnosis: Other acute sinusitis[ICD10: J01.80] Isabelle Goldman MD, [facility] CPT- 4: 17402 09/12/2017 94646 EST. PATIENT, LEVEL III Diagnosis: Acute laryngopharyngitis[ICD10: J06.0] Diagnosis: Other allergic rhinitis[ICD10: J30.89] Diagnosis: Cough[ICD10: R05] Diagnosis: Wheezing[ICD10: R06.2] Isabelle Goldman MD, [facility] CPT-4: 73273 07/25/2017 ([id number]) 92949 EST. PATIENT, LEVEL IV Diagnosis: Acute recurrent maxillary sinusitis[ICD10: J01.01] Diagnosis: Cervicalgia[ICD10: M54.2] Diagnosis: Diarrhea, unspecified[ICD10: R19.7] Shahida Goldman MD, [facility] CPT-4: 97189 06/27/2017 ([id number]) 41886 EST. PATIENT, LEVEL III Diagnosis: Chronic maxillary sinusitis[ICD10: J32.0] Diagnosis: Gastro-esophageal reflux disease without esophagitis[ICD10: K21.9] Shahida Goldman MD, [facility] CPT-4: 34744 05/08/2017 ([id number]) 85015 EST. PATIENT, LEVEL III Diagnosis: Acute recurrent maxillary sinusitis[ICD10: J01.01] Shahida Goldman MD, [facility] CPT-4: 08074 03/14/2017 60706 EST. PATIENT, LEVEL IV Diagnosis: Epigastric pain[ICD10: R10.13] Diagnosis: Left upper quadrant pain[ICD10: R10.12] Diagnosis: Left lower quadrant pain[ICD10: R10.32] Isabelle Goldman MD, [facility] CPT-4: 83174 02/20/2017 ([id number]) 21723 EST. PATIENT, LEVEL IV Diagnosis: Generalized anxiety disorder[ICD10: F41.1] Diagnosis: Major depressive disorder, recurrent, moderate[ICD10: F33.1] Diagnosis: Left upper quadrant pain[ICD10: R10.12] Diagnosis: Epigastric pain[ICD10: R10.13] Diagnosis: Actinic keratosis[ICD10: L57.0] Melba Goldman MD, [facility] CPT-4: 06572 02/06/2017 ([id number]) 85199 EST. PATIENT, LEVEL III Diagnosis: Actinic keratosis[ICD10: L57.0] Diagnosis: Major depressive disorder, recurrent, moderate[ICD10: F33.1] Melba Goldman MD, [facility] CPT-4: 80377 12/05/2016 ([id number]) 08200 EST. PATIENT, LEVEL III Diagnosis: Acute recurrent maxillary sinusitis[ICD10: J01.01] Diagnosis: Dysuria[ICD10: R30.0] Shahida Goldman MD, [facility] CPT-4: 66321 11/28/2016 65555 EST. PATIENT, LEVEL IV Diagnosis: Other acute sinusitis[ICD10: J01.80] Diagnosis: Acute laryngopharyngitis[ICD10: J06.0] Diagnosis: Other allergic rhinitis[ICD10: J30.89] Isabelle Goldman MD, [facility] CPT- 4: 46140 08/15/2016 ([id number]) 88366 EST. PATIENT, LEVEL III Diagnosis: Acute recurrent maxillary sinusitis[ICD10: J01.01] Diagnosis: Low back pain[ICD10: M54.5] Shahida Goldman MD, [facility] CPT-4: 26990 06/07/2016 ([id number]) Miscellaneous no charge Diagnosis: Essential (primary) hypertension[ICD10: I10] Shahida Goldman MD, [facility] CPT-4: 65867 03/15/2016 20393 EST. PATIENT, LEVEL IV Diagnosis: Essential (primary) hypertension[ICD10: I10] Diagnosis: Headache[ICD10: R51] Diagnosis: Generalized anxiety disorder[ICD10: F41.1] Shahida Goldman MD, [facility] CPT-4: 02614 03/14/2016 00626 EST. PATIENT, LEVEL III Diagnosis: Laceration without foreign body, left lower leg, initial encounter[ICD10: S81.812A] Isabelle Goldman MD, [facility] CPT-4: 75737 02/22/2016 ([id number]) 63740 EST. PATIENT, LEVEL III Diagnosis: Acute recurrent maxillary sinusitis[ICD10: J01.01] Diagnosis: Cough[ICD10: R05] Diagnosis: Allergic rhinitis due to pollen[ICD10: J30.1] Shahida Goldman MD, [facility] CPT-4: 84976 12/07/2015 ([id number]) 88609 EST. PATIENT, LEVEL IV Diagnosis: Essential (primary) hypertension[ICD10: I10] Diagnosis: Acute recurrent maxillary sinusitis[ICD10: J01.01] Diagnosis: Generalized anxiety disorder[ICD10: F41.1] Diagnosis: Cervicalgia[ICD10: M54.2] Diagnosis: Generalized intra-abdominal and pelvic swelling, mass and lump[ICD10: R19.07] Melba Goldman MD, [facility] CPT-4: 74317 11/24/2015 81686 EST. PATIENT, LEVEL III Diagnosis: Other migraine, intractable, without status migrainosus[ICD10: G43.819] Isabelle Goldman MD, [facility] CPT-4: 62921 08/27/2015 63648 EST. PATIENT, LEVEL III Diagnosis: Acute recurrent maxillary sinusitis[ICD10: J01.01] Diagnosis: Candidal stomatitis[ICD10: B37.0] Diagnosis: Acute laryngopharyngitis[ICD10: J06.0] Isabelle Goldman MD, [facility] CPT- 4: 45866 08/10/2015 94852 EST. PATIENT, LEVEL III Diagnosis: Superficial foreign body of left hand, initial encounter[ICD10: S60.552A] Melba Goldman MD, [facility] CPT-4: 78738 07/28/2015 ([id number]) 48308 EST. PATIENT, LEVEL III Diagnosis: Essential (primary) hypertension[ICD10: I10] Diagnosis: Tinea cruris[ICD10: B35.6] Diagnosis: Abnormal levels of other serum enzymes[ICD10: R74.8] Shahida Goldman MD, [facility] CPT-4: 33356 06/11/2015 ([id number]) 82744 EST. PATIENT, LEVEL IV Diagnosis: ESSENTIAL HYPERTENSION[ICD9: 401.9] Diagnosis: Hypothyroid[ICD9: 244.9] Diagnosis: ALLERGIC RHINITIS[ICD9: 477.9] Diagnosis: Anxiety[ICD9: 300.00] Diagnosis: Sleep apnea[ICD9: 780.57] Shahida Goldman MD, [facility] CPT-4: 26084 03/19/2015 ([id number]) 20077 EST. PATIENT, LEVEL III Diagnosis: ACUTE SINUSITIS[ICD9: 461.9] Celi Goldman MD, [facility] CPT-4: 70444 01/07/2015 ([id number]) 80174 EST. PATIENT, LEVEL III Diagnosis: Conjunctivitis[ICD9: 372.30] Shahida Goldman MD, [facility] CPT-4: 22877 09/23/2014 16967 EST. PATIENT, LEVEL II Diagnosis: Noninfected skin tear of leg[ICD9: 891.0] Shahida Goldman MD, [facility] CPT-4: 50097 08/05/2014 ([id number]) 28051 EST. PATIENT, LEVEL III Diagnosis: Chronic maxillary sinusitis[ICD9: 473.0] Shahida Goldman MD, [facility] CPT-4: 16993 06/23/2014 81931 EST. PATIENT, LEVEL II Diagnosis: Headache[ICD9: 784.0] Shahida Goldman MD, [facility] CPT-4: 48282 06/05/2014 ([id number]) 50855 EST. PATIENT, LEVEL III Diagnosis: Abrasion of right leg[ICD9: 916.0] Diagnosis: Headache[ICD9: 784.0] Diagnosis: ALLERGIC RHINITIS[ICD9: 477.9] Shahida Goldman MD, [facility] CPT-4: 73861 04/03/2014 52062 EST. PATIENT, LEVEL II Diagnosis: Tinea corporis[ICD9: 110.5] Diagnosis: Exposure to scabies[ICD9: V01.89] Shahida Goldman MD, [facility] CPT- 4: 65031 03/07/2014 ([id number]) 94771 EST. PATIENT, LEVEL III Diagnosis: ESSENTIAL HYPERTENSION[SNOMED: 26164443] Diagnosis: OSTEOARTH NOS-UNSPEC[ICD9: 715.90] Diagnosis: Lumbago[ICD9: 724.2] Diagnosis: Cervicalgia[ICD9: 723.1] Shahida Goldman MD, [facility] CPT-4: 28533 11/21/2013 ([id number]) 14087 EST. PATIENT, LEVEL III Diagnosis: DEPRESSIVE DISORDER NEC[ICD9: 311] Diagnosis: Paronychia[ICD9: 681.9] Melba Goldman MD, [facility] CPT-4: 82825 09/24/2013 ([id number]) 99465 EST. PATIENT, LEVEL III Diagnosis: Paronychia[ICD9: 681.9] Diagnosis: Cellulitis[ICD9: 682.9] Melba Goldman MD, [facility] CPT-4: 99300 09/19/2013 ([id number]) 11610 EST. PATIENT, LEVEL III Diagnosis: Conjunctivitis[ICD9: 372.30] Diagnosis: Thrush[ICD9: 112.0] Shahida Goldman MD, [facility] CPT-4: 96882 08/05/2013 ([id number]) 03186 EST. PATIENT, LEVEL III Diagnosis: ACUTE MAXILLARY SINUSITIS[ICD9: 461.0] Diagnosis: COUGH[ICD9: 786.2] Diagnosis: Insomnia[ICD9: 780.52] Diagnosis: ESOPHAGEAL REFLUX[ICD9: 530.81] Melba Goldman MD, [facility] CPT-4: 43994 07/10/2013 ([id number]) Miscellaneous no charge Diagnosis: ESSENTIAL HYPERTENSION[SNOMED: 96419212] Melba Goldman MD, [facility] CPT-4: 14880 05/13/2013 ([id number]) 30439 EST. PATIENT, LEVEL IV Diagnosis: ESSENTIAL HYPERTENSION[SNOMED: 11073352] Diagnosis: HYPOTHYROIDISM[ICD9: 244.9] Diagnosis: OSTEOARTH NOS-UNSPEC[ICD9: 715.90] Melba Goldman MD, [facility] CPT- 4: 93226 05/07/2013 ([id number]) 38403 EST. PATIENT, LEVEL IV Diagnosis: Osteoarthritis[ICD9: 715.90] Diagnosis: Knee pain, bilateral[ICD9: 719.46] Diagnosis: Hip pain[ICD9: 719.45] Melba Goldman MD [facility] CPT-4: 62780 12/03/2012 ([id number]) 16380 EST. PATIENT, LEVEL III Diagnosis: Thrush[ICD9: 112.0] Melba Goldman MD, [facility] CPT-4: 68419 09/24/2012 ([id number]) 45626 EST. PATIENT, LEVEL IV Diagnosis: ESSENTIAL HYPERTENSION[SNOMED: 07408622] Diagnosis: Thrush[ICD9: 112.0] Diagnosis: Sleep apnea[ICD9: 780.57] Melba Goldman MD [facility] CPT-4: 33511 09/10/2012 ([id number]) 36055 EST. PATIENT, LEVEL IV Diagnosis: Esophageal reflux[ICD9: 530.81] Diagnosis: Hypothyroid[ICD9: 244.9] Diagnosis: JOINT PAIN-MULT JOINTS[ICD9: 719.49] Diagnosis: ALLERGIC RHINITIS[ICD9: 477.9] Melba Goldman MD, [facility] CPT-4: 12130 08/08/2012 ([id number]) 98659 EST. PATIENT, LEVEL IV Diagnosis: Urinary frequency[ICD9: 788.41] Diagnosis: EDEMA[ICD9: 782.3] Diagnosis: HYPOTHYROIDISM[ICD9: 244.9] Diagnosis: Fatigue[ICD9: 780.79] Melba Goldman MD, [facility] CPT-4: 13030 02/15/2012 ([id number]) 99938 EST. PATIENT, LEVEL IV Diagnosis: Abdominal pain[ICD9: 789.00] Diagnosis: Fatigue[ICD9: 780.79] Diagnosis: Nausea[ICD9: 787.02] Melba Goldman MD, [facility] CPT-4: 76509 11/10/2011 96273 EST. PATIENT, LEVEL IV Diagnosis: ESSENTIAL HYPERTENSION[SNOMED: 03914903] Diagnosis: DIARRHEA[ICD9: 787.91] Diagnosis: DEPRESSIVE DISORDER NEC[ICD9: 311] Diagnosis: Irritable bowel disease[ICD9: 564.1] Melba Goldman MD, [facility] CPT- 4: 65503 08/01/2011 06973 EST. PATIENT, LEVEL III Diagnosis: ACUTE SINUSITIS[ICD9: 461.9] Diagnosis: Cough[ICD9: 786.2] Shahida Goldman MD, [facility] CPT-4: 98468 07/14/2011 29948 EST. PATIENT, LEVEL IV Diagnosis: VACCIN FOR INFLUENZA[ICD9: V04.81] Diagnosis: ESSENTIAL HYPERTENSION[SNOMED: 04479645] Diagnosis: GENERALIZED ANXIETY DISEASE[ICD9: 300.02] Diagnosis: SLEEP DISTURBANCES[ICD9: 780.50] Shahida Goldman MD, [facility] CPT- 4: 61098 05/23/2011 38906 EST. PATIENT, LEVEL III Diagnosis: ACUTE SINUSITIS[ICD9: 461.9] Diagnosis: ALLERGIC RHINITIS[ICD9: 477.9] Diagnosis: Cough[ICD9: 786.2] Shahida Goldman MD, [facility] CPT-4: 96694 05/03/2011 38464 EST. PATIENT, LEVEL IV Diagnosis: ESSENTIAL HYPERTENSION[SNOMED: 93628065] Diagnosis: DEPRESSIVE DISORDER NEC[ICD9: 311] Diagnosis: Fatigue[ICD9: 780.79] Shahida Goldman MD, [facility] CPT-4: 35679 04/25/2011 Plan of Care Planned Activity Notes Codes Status Date Appointment: Isabelle Orozco WPtel: [address] [place], [place] [phone] (15 min) Moderate 07/30/2018 Visit Plan: Anxiety [...] acute concerns. 07/16/2018 Appointment: [phone] ([facility] min) Moderate 07/16/2018 Patient Education: [...] of over-medication. 07/10/2018 Appointment: Shahida Manzo WPtel: [phone] (15 min) Moderate 07/10/2018 Patient Education: Patient Medication Summary Completed 07/10/2018 Patient Education: Back Pain Completed 07/10/2018 Visit Plan: Sinusitis - Pt has acute infection - pain in face, maxillary region, Pt informed to use decongestant, RX given to patient, sinus rinses also recommended. Call if symptoms do not show improvement. 05/28/2018 Appointment: Shahida Manzo WPtel: [phone] [phone] (30 min) Complex 05/28/2018 Patient Education: Patient [...] acute concerns. 02/07/2018 Appointment: Isabelle Orozco WPtel: [facility] (15 min) Moderate 02/07/2018 Patient Education: Patient [...] fatigue 01/19/2018 Appointment: Shahida Manzo WPtel: [phone] [id number] (15 min) Moderate 01/19/2018 Patient Education: [...] care surrogate. 11/23/2017 Appointment: Isabelle Orozco WPtel: [phone] [facility] [facility] - Annual Wellness Visit 11/23/2017 Patient [...] improvement. 09/12/2017 Appointment: Isabelle Orozco WPtel: [phone] [facility] (15 min) Moderate 09/12/2017 Patient Education: Patient [...] spray. 07/25/2017 Appointment: Isabelle Orozco WPtel: [phone] [facility] (30 min) Complex 07/25/2017 Patient Education: Patient [...] are available 06/27/2017 Appointment: Shahida Manzo WPtel: [phone] (15 min) Moderate 06/27/2017 Patient Education: Patient [...] not improving. 05/08/2017 Appointment: Shahida Manzo WPtel: [phone] (15 min) Moderate 05/08/2017 Patient Education: Patient [...] show improvement. 03/14/2017 Appointment: Shahida Manzo WPtel: [phone] [place] (15 min) Moderate 03/14/2017 Patient Education: Patient Medication Summary Completed 03/14/2017 Appointment: Shahida Manzo WPtel: [phone] (15 min) Moderate 02/21/2017 Visit Plan: Abdominal [...] not improving. 02/20/2017 Appointment: Isabelle Orozco WPtel: [phone] [facility] (30 min) Complex 02/20/2017 Patient Education: Patient [...] use 02/06/2017 Appointment: Melba Goldman WPtel: [phone] [facility] (15 min) Moderate 02/06/2017 Patient [...] this patient. 12/05/2016 Appointment: Melba Goldman WPtel: [facility] Surgical Procedure 12/05/2016 Patient Education: Patient Medication Summary Completed 12/05/2016 Visit Plan: Sinusitis - Pt has acute infection - pain in face, maxillary region, Pt informed to use decongestant, RX given to patient, sinus rinses also recommended. Call if symptoms do not show improvement. Dysuria- culture urine 11/28/2016 Appointment: Shahida Manzo WPtel: [phone] (15 min) Moderate 11/28/2016 Patient Education: Patient [...] of control. 11/07/2016 Appointment: [phone] [facility] 11/07/2016 Patient [...] spray. 08/15/2016 Appointment: [phone] (15 min) Moderate 08/15/2016 Patient Education: [...] pain use. 06/07/2016 Appointment: Shahida Manzo [facility]Ptel: [phone] (10 min) Simple 06/07/2016 Patient Education: [...] office today 03/14/2016 Appointment: Shahida Manzo [facility]Ptel[phone] (15 min) Moderate 03/14/2016 Patient Education: Patient Medication Summary Completed 03/14/2016 Care Plan: COMPLETE CBC AUTOMATED LOINC : 72664-2 Pending 03/14/2016 Visit Plan: Cellulitis - The patient was instructed in appropriate wound care. The patient was instructed to use the antibiotic ointment as per RX. The patient is to call for any change in symptoms, increase in size of the lesion, increase in pain. 02/22/2016 Appointment: Isabelle Orozco [facility]Ptel[facility] (15 min) Moderate 02/22/2016 Patient Education: [...] pt to follow up with specialist at [address] - she needs to pursue treatment. Anxietly - medications unchanged. colonoscopy with dr. dai 11/24/2015 Appointment: Melba Goldman WPtel: [address] [place], [place] [address] (30 min) [facility] 11/24/2015 Patient Education: Patient Medication Summary Completed 11/24/2015 Patient Education: Obesity Completed 11/24/2015 Patient Education: Hypertension Completed 11/24/2015 Patient Education: .Cervicalgia Neck Pain Completed 11/24/2015 Care Plan: Referral Order SNOMED-CT : [id number] Ordered 11/24/2015 Visit Plan: Acute Migraine - [...] to monitor 06/11/2015 Appointment: Shahida Manzo WPtel: [address] [place], [place] [phone] (15 min) Moderate 06/11/2015 Patient Education: Patient [...] OFFICE Sleep apnea-patient needs new CPAP-will contact [facility] Pt reports that she uses [...] OFFICE Sleep apnea-patient needs new CPAP-will contact [facility] [place] Pt reports that she uses [...] OFFICE Sleep apnea-patient needs new CPAP-will contact [facility] [place] [facility] 03/19/2015 Appointment: (15 min) Moderate 03/19/2015 [...] Patient Medication Summary Completed 01/07/2015 Patient Education: [facility] - Saving [employer] - 18+ [...] areas dry Exposure to scabies-RX sent to [facility]. 03/07/2014 [facility]ment: [phone] [place] rash 03/07/2014 Patient Education: Patient [...] change in blood pressure readings at home. Qdaqxkp-yyxldifcppv-dkqemelu duragesic patch-appt with Dr Ortiz for pain management 11/21/2013 Appointment: Shahida Manzo WPtel: [phone] Follow up 11/21/2013 Patient Education: Patient Medication Summary Completed 11/21/2013 Patient Education: Hypertension Completed 11/21/2013 Patient Education: .Cervicalgia Neck Pain Completed 11/21/2013 Appointment: Melba Goldman WPtel: [facility] Other 11/19/2013 Appointment: Melba Goldman WPtel: [address] [place], [place] [phone] Follow up 11/06/2013 Appointment: Melba Goldman WPtel: [address] [place], [place] [phone] Lab Draw 10/15/2013 Patient Education: Patient Medication [...] AT BEDTIME 09/24/2013 Appointment: Shahida Manzo WPtel: [phone] Other 09/24/2013 Patient Education: Patient Medication Summary Completed 09/24/2013 Visit Plan: Paronychia/Cellulitis - continue with oral antibiotics as previously directed, return to clinic as previously directed, call for acute change in symptoms, worsening redness, warmth, discharge. 09/19/2013 Appointment: Melba Goldman WPtel: [phone] [facility] [place] Other 09/19/2013 Patient Education: Patient Medication Summary Completed 09/19/2013 Visit Plan: Conjunctivitis - rx for eye drops/lube sent electronically to the patient's pharmacy. The patient has been instructed to cleanse affected eye with warm washcloth, then place medication into affected eye four times daily. Thrush-refill nystatin-call if symptoms do not resolve 08/05/2013 Appointment: [phone] [place] Sick 08/05/2013 Patient Education: Patient [...] improvement. 06/03/2013 [facility]ment[phone] Follow up 06/03/2013 Patient Education: Patient Medication Summary Completed 06/03/2013 Patient Education: Hypertension Completed 06/03/2013 App[facility]ment: [phone] [facility] Visit 05/13/2013 Patient Education: Patient Medication [...] Appointment: [phone] Follow up 05/07/2013 Patient Education: Patient Medication Summary Completed 05/07/2013 Patient Education: Hypertension Completed 05/07/2013 Patient Education: Patient Medication Summary Completed 04/30/2013 Patient Education: Hypertension Completed 04/30/2013 Visit Plan: Arthritis- occasionally uncontrolled symptoms- recommend pt to take antiinflammatory as directed for pain control. Use tylenol for break through pain symptoms. 12/03/2012 Appointment: [phone] Follow up 12/03/2012 Patient Education: Patient [...] resolve 09/24/2012 Appointment: Shahida Manzo WPtel: [phone] [phone] Sick 09/24/2012 Patient Education: Patient Medication Summary [...] diflucan 09/10/2012 Appointment: Melba Goldman WPtel: [phone] [facility] Follow up 09/10/2012 Patient Education: Patient [...] for break through pain symptoms. 08/08/2012 Appointment: Shahiad Manzo WPtel: [id number] [place] [address] Follow up 08/08/2012 Patient Education: Patient Medication Summary Completed 08/08/2012 Patient Education: Patient Medication Summary Completed 08/07/2012 Patient Education: Hypertension Completed 08/07/2012 Appointment: Melba Goldman WPtel: [facility] [place] [phone] [place] Lab Draw 02/16/2012 Patient Education: Patient [...] Needs labs. 02/15/2012 Appointment: Melba Goldman WPtel: [facility] Other 02/15/2012 Patient Education: Patient Medication Summary Completed 02/15/2012 Visit Plan: Abdominal pain - ultrasound tomorrow AM nothing to eat before the ultrasound from 11pm tonight bland diet. Nausea - worse with fatty foods, recommended low fat/bland diet, call if symptoms worsening. 11/10/2011 Appointment: Melba Goldman WPtel: [phone] [facility] Other 11/10/2011 Patient Education: Patient [...] the stools. 08/01/2011 Appointment: Susi Melba WPtel: [facility] Other 08/01/2011 Patient Education: Patient Medication Summary Completed 08/01/2011 Patient Education: High Blood Pressure: Essential Hypertension Completed 08/01/2011 Visit Plan: Sinusitis - Pt has acute infection - pain in face, maxillary region, Pt informed to use decongestant, RX given to patient, sinus rinses also recommended. Call if symptoms do not show improvement. Cough- tesdavid zurita 07/14/2011 Appointment: Shahida Manzo WPtel: [phone] Other 07/14/2011 Patient Education: Patient Medication Summary [...] the office. 05/23/2011 Appointment: Shahida Manzo WPtel: [address] [place] [address] Other 05/23/2011 Patient Education: Patient Medication Summary [...] cough med 05/03/2011 Appointment: Shahida Manzo WPtel: [address] [place] [address] [place] Other 05/03/2011 Patient Education: Patient Medication [...] her symptoms. 04/25/2011 Appointment: Shahida Manzo WPtel: [address] [place], [place] [phone] Other 04/25/2011 Patient Education: Patient Medication Summary Completed 04/25/2011 Referral: Matthew Dai Referral Appointment Requested Referral: Mtathew Dai Information faxed to Dr. Dai. Their office to book. Patient informed. Completed Instructions Comment . Paronychia/Cellulitis - continue with oral antibiotics [...] OFFICE Sleep apnea-patient needs new CPAP-will contact [facility] [place] patient Pt reports that she uses [...] OFFICE Sleep apnea-patient needs new CPAP-will contact [place] [facility] Pt reports that she uses her [...] not show improvement. Gentamicin nasal spray to [facility] Increase prilosec to twice daily . [...] areas dry [facility] rocephin/kenalog . Sinusitis - Pt [...] change in blood pressure readings at home. Bsdlrkb-wjaiqptnymj-woxgjcbx duragesic patch-appt with Dr Ortiz for pain [...] OFFICE Sleep apnea-patient needs new CPAP-will contact [place] patient . Conjunctivitis - rx for eye drops/lube [...] see if we can imrpove her symptoms. Doctor'kelly rajput of the patient - I personally discussed [...]
--- OUTSIDE RECORDS SUMMARY | 2019-03-08 17:20 | XMS REPORT | CCD ---
Author Author [facility] Address [address] [place] [address] Phone Care Team Providers Care Chain Hooker Name Role Phone PP Unavailable CCM Unavailable Summary Purpose Interface Exchange Insurance Providers Payer name Policy type / Coverage type Covered republican ID Effective Begin Date Effective End Date [employer] Medicare Part B [id number] Unknown Family history Son Diagnosis Age At Onset Crohn's disease Unknown Brother Diagnosis Age At Onset Cardiovascular disease Unknown Mother Diagnosis Age At Onset Hypertension Unknown Father Diagnosis Age At Onset Cardiovascular disease Unknown Social History Social History Element Codes Description Effective Dates Marital status Unknown 04/22/2011 Number of children Unknown 3 1 son -Crohns 04/22/[address]: 126501002 Nonsmoker 04/22/2011 Allergies, Adverse Reactions, Alerts Substance [...] Fill Instructions trazodone 50 mg tablet RxNorm: 378586 TAKE ONE AND ONE-HALF (1 1/2) TABLET BY MOUTH AT BEDTIME. MAY INCREASE TO 2 TABLETS AT BEDTIME NEEDED 08/02/2018 11/19/2018 Active Nexium 40 mg capsule,delayed release RxNorm: 905507 TAKE ONE CAPSULE BY MOUTH TWICE A DAY 07/23/2018 11/19/2018 Active Bystolic 5 mg tablet RxNorm: 944340 1 Tablet(s) PO daily to take with 10 mg daily to equal 15mg daily 07/17/2018 No Stop Date Active alprazolam 0.25 mg tablet RxNorm: 277232 1 Tablet(s) PO TID as needed 07/16/2018 10/13/2018 Active hydrocodone 10 mg-acetaminophen 325 mg tablet RxNorm: 896122 Tablet(s) PO TAKE ONE TO TWO TABLETS BY MOUTH EVERY 6 HOURS NEEDED FOR PAIN 07/10/2018 07/24/2018 Inactive prednisone 20 mg tablet RxNorm: 578384 1 Tablet(s) PO BID 07/10/2018 07/14/2018 Inactive Phenergan with Codeine Syrup RxNorm: 5-10 Milliliter(s) PO Q6 PRN 06/28/2018 No Stop Date Active prednisone 20 mg tablet RxNorm: 755140 2 Tablet(s) PO daily 05/31/2018 06/04/2018 Inactive prednisone 20 mg tablet RxNorm: 325038 2 Tablet(s) PO daily 05/31/2018 05/30/2018 Inactive ceftriaxone 500 mg solution for injection RxNorm: 6215938 Inj 05/28/2018 05/28/2018 Inactive doxycycline hyclate 100 mg tablet RxNorm: 7049411 1 Tablet(s) PO BID 05/28/2018 06/06/2018 Inactive Kenalog 40 mg/mL suspension for injection RxNorm: 6149883 Milliliter(s) Inj 05/28/2018 05/28/2018 Inactive hydrocodone 10 mg-acetaminophen 325 mg tablet RxNorm: 211145 Tablet(s) PO TAKE ONE TO TWO TABLETS BY MOUTH EVERY 6 HOURS NEEDED FOR PAIN 05/09/2018 05/23/2018 Inactive alprazolam 0.25 mg tablet RxNorm: 239417 1 Tablet(s) PO daily as needed 04/25/2018 07/15/2018 Inactive Bystolic 10 mg tablet RxNorm: 698569 TAKE ONE TABLET BY MOUTH DAILY 04/16/2018 09/12/2018 Active hydrocodone 10 mg-acetaminophen 325 mg tablet RxNorm: 311871 Tablet(s) PO TAKE ONE TO TWO TABLETS BY MOUTH EVERY 6 HOURS NEEDED FOR PAIN 03/06/2018 03/20/2018 Inactive trazodone 50 mg tablet RxNorm: 561246 TAKE ONE AND ONE-HALF (1 1/2) TABLET BY MOUTH AT BEDTIME. MAY INCREASE TO 2 TABLETS AT BEDTIME NEEDED 02/23/2018 06/12/2018 Inactive mupirocin 2 % topical ointment RxNorm: 741779 1 TOP BID 02/09/2018 05/27/2018 Inactive Zofran 4 mg tablet RxNorm: 253463 1 Tablet(s) PO TID as needed 02/08/2018 No Stop Date Active Keflex 500 mg capsule RxNorm: 811464 1 Capsule(s) PO TID 02/07/2018 02/13/2018 Inactive alprazolam 0.25 mg tablet RxNorm: 115307 1 Tablet(s) PO daily as needed 01/24/2018 07/09/2018 Inactive piroxicam 20 mg capsule RxNorm: 342488 1 Capsule(s) PO daily 01/19/2018 07/17/2018 Inactive D/C ORDER FOR HCTZ hydrocodone 10 mg-acetaminophen 325 mg tablet RxNorm: 505386 Tablet(s) PO TAKE ONE TO TWO TABLETS BY MOUTH EVERY 6 HOURS NEEDED FOR PAIN 01/19/2018 02/02/2018 Inactive hydrochlorothiazide 25 mg tablet RxNorm: 723997 Tablet(s) TAKE ONE TABLET BY MOUTH DAILY 01/19/2018 01/19/2018 Inactive Kenalog 40 mg/mL suspension for injection RxNorm: 1350256 1 Milliliter(s) Inj 01/19/2018 01/19/2018 Inactive ceftriaxone 500 mg solution for injection RxNorm: 6846856 500 Milligram(s) Inj 01/19/2018 01/19/2018 Inactive Nexium 40 mg capsule,delayed release RxNorm: 329996 TAKE ONE CAPSULE BY MOUTH TWICE A DAY 01/18/2018 04/17/2018 Inactive Nexium 40 mg capsule,delayed release RxNorm: 747043 TAKE ONE CAPSULE BY MOUTH TWICE A DAY 01/15/2018 04/14/2018 Inactive ciprofloxacin 0.3 % eye drops RxNorm: 500590 2 Drop(s) ophthalmic (eye) Q2H while awake x 2 days, then Q4H x 5 days 11/23/2017 05/27/2018 Inactive Keflex 500 mg capsule RxNorm: 263931 1 Capsule(s) PO TID 11/23/2017 11/29/2017 Inactive hydrocodone 10 mg-acetaminophen 325 mg tablet RxNorm: 508191 Tablet(s) PO TAKE ONE TO TWO TABLETS BY MOUTH EVERY 6 HOURS NEEDED FOR PAIN 10/30/2017 11/13/2017 Inactive Augmentin 500 mg-125 mg tablet RxNorm: 519282 1 Tablet(s) PO TID 10/27/2017 11/05/2017 Inactive alprazolam 0.25 mg tablet RxNorm: 318931 1 Tablet(s) PO daily as needed 10/26/2017 04/24/2018 Inactive trazodone 50 mg tablet RxNorm: 295057 TAKE ONE AND ONE-HALF (1 1/2) TABLET BY MOUTH AT BEDTIME. MAY INCREASE TO 2 TABLETS AT BEDTIME NEEDED 09/25/2017 02/03/2018 Inactive Lexapro 20 mg tablet RxNorm: 350244 TAKE ONE AND ONE-HALF TABLET BY MOUTH DAILY 09/15/2017 09/09/2018 Active Flagyl 500 mg tablet RxNorm: 453351 1 Tablet(s) PO TID 09/12/2017 09/21/2017 Inactive promethazine 25 mg tablet RxNorm: 125520 1 Tablet(s) PO TID as needed nausea and vomitting THIS WILL MAKE YOU SLEEPY 09/12/2017 11/08/2017 Inactive Keflex 500 mg capsule RxNorm: 159155 1 Capsule(s) PO QID 08/25/2017 08/31/2017 Inactive [SAVINGS FOR UNINSURED PATIENTS -- [id number], PCN: [id number], Group: [id number], ID# [id number], Process claim through Dr. TATTOFF, for questions: . THIS IS NOT INSURANCE.] alprazolam 0.25 mg tablet RxNorm: 839833 1 Tablet(s) PO daily as needed 07/31/2017 04/24/2018 Inactive prednisone 20 mg tablet RxNorm: 713839 2 Tablet(s) PO daily 07/25/2017 07/29/2017 Inactive Augmentin 500 mg-125 mg tablet RxNorm: 734965 1 Tablet(s) PO TID 07/25/2017 08/03/2017 Inactive trazodone 50 mg tablet RxNorm: 258338 TAKE ONE AND ONE-HALF (1 1/2) TABLET BY MOUTH AT BEDTIME. MAY INCREASE TO 2 TABLETS AT BEDTIME NEEDED 06/30/2017 09/03/2017 Inactive Bystolic 10 mg tablet RxNorm: 750970 TAKE ONE TABLET BY MOUTH DAILY 06/30/2017 2017 Inactive hydrochlorothiazide 25 mg tablet RxNorm: 412562 TAKE ONE TABLET BY MOUTH DAILY 06/30/2017 01/18/2018 Inactive Flagyl 500 mg tablet RxNorm: 057025 1 Tablet(s) PO TID 06/27/2017 07/03/2017 Inactive Phenergan with Codeine Syrup RxNorm: 5-10 Milliliter(s) PO Q6 PRN 06/27/2017 11/15/2017 Inactive Levaquin 500 mg tablet RxNorm: 898896 1 Tablet(s) PO daily 06/27/2017 07/03/2017 Inactive Kenalog 40 mg/mL suspension for injection RxNorm: 0067316 1 Milliliter(s) Inj 06/27/2017 06/27/2017 Inactive Nexium 40 mg capsule,delayed release RxNorm: 537873 1 Capsule(s) PO BID TAKE ONE CAPSULE BY MOUTH BID 05/22/2017 09/18/2017 Inactive Nexium 40 mg capsule,delayed release RxNorm: 181234 1 Capsule(s) PO BID TAKE ONE CAPSULE BY MOUTH BID 05/22/2017 05/21/2017 Inactive hydrocodone 10 mg-acetaminophen 325 mg tablet RxNorm: 670445 Tablet(s) PO TAKE ONE TO TWO TABLETS BY MOUTH EVERY 6 HOURS NEEDED FOR PAIN 05/17/2017 06/15/2017 Inactive Nexium 40 mg capsule,delayed release RxNorm: 404587 Capsule(s) TAKE ONE CAPSULE BY MOUTH BID 05/17/2017 05/21/2017 Inactive alprazolam 0.25 mg tablet RxNorm: 810506 1 Tablet(s) PO daily as needed 05/03/2017 07/01/2017 Inactive Levaquin 500 mg tablet RxNorm: 003558 1 Tablet(s) PO daily 04/20/2017 04/26/2017 Inactive clotrimazole 1 % topical cream RxNorm: 107605 1 Application TOP BID 04/20/2017 11/07/2017 Inactive Kenalog 40 mg/mL suspension for injection RxNorm: 4250395 Milliliter(s) Inj 04/20/2017 04/20/2017 Inactive nystatin 100,000 unit/gram topical powder RxNorm: 657127 1 Gram(s) APPLY TOPICALLY TWO TIMES A DAY 04/10/2017 07/08/2017 Inactive trazodone 50 mg tablet RxNorm: 356505 TAKE ONE AND ONE-HALF (1 1/2) TABLET BY MOUTH AT BEDTIME. MAY INCREASE TO 2 TABLETS AT BEDTIME NEEDED 03/28/2017 06/23/2017 Inactive Augmentin 875 mg-125 mg tablet RxNorm: 032044 1 Tablet(s) PO BID 03/14/2017 03/20/2017 Inactive Kenalog 40 mg/mL suspension for injection RxNorm: 0814920 1 Milliliter(s) Inj 03/14/2017 03/14/2017 Inactive Lexapro 20 mg tablet RxNorm: 711479 1.5 Tablet(s) PO daily 03/08/2017 03/07/2017 Inactive Lexapro 20 mg tablet RxNorm: 117092 1.5 Tablet(s) PO daily 03/08/2017 07/05/2017 Inactive alprazolam 0.25 mg tablet RxNorm: 502053 1 Tablet(s) PO daily as needed 02/23/2017 04/23/2017 Inactive (Response to an electronic controlled substance refill request - RxReferenceNumber: [id number]) Flagyl 500 mg tablet RxNorm: 285876 1 Tablet(s) PO TID 02/20/2017 03/01/2017 Inactive promethazine 25 mg tablet RxNorm: 110239 1 Tablet(s) PO TID as needed nausea 02/20/2017 03/01/2017 Inactive Cipro 500 mg tablet RxNorm: 919017 1 Tablet(s) PO BID 02/20/2017 03/01/2017 Inactive Flagyl 500 mg tablet RxNorm: 998229 1 Tablet(s) PO TID 02/09/2017 02/15/2017 Inactive Trintellix 10 mg tablet RxNorm: 1459273 1 Tablet(s) PO QAM 02/06/2017 03/07/2017 Inactive Efudex 5 % topical cream RxNorm: 870560 1 Application TOP BID use on skin spot on nose 02/06/2017 02/15/2017 Inactive Bystolic 10 mg tablet RxNorm: 300778 TAKE ONE TABLET BY MOUTH DAILY 02/03/2017 06/02/2017 Inactive Imitrex 50 mg tablet RxNorm: 443427 TAKE ONE TABLET BY MOUTH EVERY 8 HOURS NEEDED MAY REPEAT IN 1 HOUR OF INITIAL DOSE. DISCONTINUE FIORICET 12/22/2016 02/19/2017 Inactive Nexium 40 mg capsule,delayed release RxNorm: 010051 TAKE ONE CAPSULE BY MOUTH EVERY DAY 12/21/2016 05/16/2017 Inactive Lexapro 20 mg tablet RxNorm: 961308 Tablet(s) TAKE ONE TABLET BY MOUTH DAILY 12/05/2016 02/05/2017 Inactive Augmentin 875 mg-125 mg tablet RxNorm: 439621 1 Tablet(s) PO BID 11/28/2016 12/04/2016 Inactive ceftriaxone 500 mg solution for injection RxNorm: 1211344 1 Milliliter(s) Inj 11/28/2016 11/28/2016 Inactive hydrocodone 10 mg-acetaminophen 325 mg tablet RxNorm: 501564 Tablet(s) PO TAKE ONE TO TWO TABLETS BY MOUTH EVERY 6 HOURS NEEDED FOR PAIN 11/28/2016 05/16/2017 Inactive (Appended: Controlled substance eRx refill - RxReferenceNumber: [id number]) prednisone 20 mg tablet RxNorm: 264455 2 Tablet(s) PO daily 11/28/2016 12/02/2016 Inactive Synthroid 100 mcg tablet RxNorm: 528754 1 Tablet(s) PO daily 11/21/2016 05/19/2017 Inactive Brand name only! trazodone 50 mg tablet RxNorm: 764722 Tablet(s) TAKE 1 AND 1/2 TABLETS EVERY NIGHT AT BEDTIME , MAY INCREASE TO 2 TABLETS AT BEDTIME NEEDED 11/21/2016 11/20/2016 Inactive trazodone 50 mg tablet RxNorm: 418981 TAKE 1 AND 1/2 TABLETS EVERY NIGHT AT BEDTIME , MAY INCREASE TO 2 TABLETS AT BEDTIME NEEDED 11/21/2016 08/01/2018 Inactive Synthroid 100 mcg tablet RxNorm: 426802 1 Tablet(s) PO daily TAKE ONE TABLET BY MOUTH DAILY 11/08/2016 11/20/2016 Inactive ceftriaxone 500 mg solution for injection RxNorm: 0700155 Inj 11/07/2016 11/07/2016 Inactive Kenalog 40 mg/mL suspension for injection RxNorm: 4197862 Milliliter(s) Inj 11/07/2016 11/07/2016 Inactive Xanax 0.25 mg tablet RxNorm: 444333 1 Tablet(s) PO daily as needed 10/31/2016 05/02/2017 Inactive alprazolam 0.25 mg tablet RxNorm: 924153 1 Tablet(s) PO daily as needed 10/21/2016 12/18/2016 Inactive (Response to an electronic controlled substance refill request - RxReferenceNumber: [id number]) hydrochlorothiazide 25 mg tablet RxNorm: 288596 TAKE ONE TABLET BY MOUTH DAILY 10/11/2016 04/08/2017 Inactive Xanax 0.25 mg tablet RxNorm: 454930 1 Tablet(s) PO daily as needed 08/23/2016 10/19/2016 Inactive Flonase Allergy Relief 50 mcg/actuation nasal spray,suspension RxNorm: 4134790 1 [place] NASAL daily 08/15/2016 No Stop Date Active amoxicillin 500 mg capsule RxNorm: 138560 1 Capsule(s) PO TID 08/15/2016 08/24/2016 Inactive Bystolic 10 mg tablet RxNorm: 000638 TAKE ONE TABLET BY MOUTH DAILY 08/01/2016 12/28/2016 Inactive trazodone 50 mg tablet RxNorm: 551027 TAKE 1 AND 1/2 TABLETS EVERY NIGHT AT BEDTIME , MAY INCREASE TO 2 TABLETS AT BEDTIME NEEDED 07/25/2016 11/11/2016 Inactive alprazolam 0.25 mg tablet RxNorm: 642433 1 Tablet(s) PO daily as needed 07/25/2016 08/22/2016 Inactive (Response to an electronic controlled substance refill request - RxReferenceNumber: [id number]) Imitrex 50 mg tablet RxNorm: 895689 1 Tablet(s) PO Q8 as needed may repeat x1 dose in 1 hour of inital dose. 07/13/2016 No Stop Date Active Lexapro 20 mg tablet RxNorm: 993800 TAKE 1/2 TABLET BY MOUTH DAILY FOR 10 DAYS, THEN TAKE ONE TABLET BY MOUTH DAILY 06/27/2016 11/23/2016 Inactive Synthroid 100 mcg tablet RxNorm: 353054 TAKE ONE TABLET BY MOUTH DAILY 06/20/2016 11/07/2016 Inactive Augmentin 500 mg-125 mg tablet RxNorm: 636349 1 Tablet(s) PO TID 06/07/2016 06/13/2016 Inactive hydrocodone 10 mg-acetaminophen 325 mg tablet RxNorm: 340432 Tablet(s) PO TAKE ONE TO TWO TABLETS BY MOUTH EVERY 6 HOURS NEEDED FOR PAIN 06/07/2016 11/27/2016 Inactive (Appended: Controlled substance eRx refill - RxReferenceNumber: [id number]) hydrochlorothiazide 25 mg tablet RxNorm: 103461 TAKE ONE TABLET BY MOUTH DAILY 03/14/2016 09/09/2016 Inactive Edarbi 40 mg tablet RxNorm: 7681358 1 Tablet(s) PO daily 03/14/2016 06/06/2016 Inactive trazodone 50 mg tablet RxNorm: 098888 Tablet(s) TAKE 1 AND 1/2 TABLET AT BEDTIME. MAY INCREASE TO 2 TABLETS IF NECESSARY 02/25/2016 07/05/2016 Inactive Imitrex 50 mg tablet RxNorm: 646996 1 Tablet(s) PO Q8 as needed may repeat x1 dose in 1 hour of inital dose. 02/25/2016 07/12/2016 Inactive dc fioricet Xanax 0.25 mg tablet RxNorm: 063119 1 Tablet(s) PO daily as needed 02/24/2016 07/21/2016 Inactive mupirocin 2 % topical ointment RxNorm: 013805 1 TOP BID 02/22/2016 11/08/2017 Inactive Bactrim DS 800 mg-160 mg tablet RxNorm: 042417 1 Tablet(s) PO BID 02/22/2016 03/02/2016 Inactive Fioricet 50 mg-325 mg-40 mg tablet RxNorm: 741526 Tablet(s) TAKE ONE TABLET BY MOUTH EVERY 4 HOURS NEEDED FOR headache 02/12/2016 02/24/2016 Inactive (Response to an electronic controlled substance refill request - RxReferenceNumber: [id number]) Fioricet 50 mg-325 mg-40 mg tablet RxNorm: 197064 Tablet(s) TAKE ONE TABLET BY MOUTH EVERY 4 HOURS NEEDED FOR headache 02/12/2016 02/11/2016 Inactive (Response to an electronic controlled substance refill request - RxReferenceNumber: [id number]) Nexium 40 mg capsule,delayed release RxNorm: 579661 TAKE ONE CAPSULE BY MOUTH EVERY DAY 02/01/2016 10/27/2016 Inactive Bystolic 10 mg tablet RxNorm: 561736 Tablet(s) TAKE ONE TABLET BY MOUTH DAILY 01/06/2016 07/03/2016 Inactive Xanax 0.25 mg tablet RxNorm: 049649 1 Tablet(s) PO daily as needed 12/28/2015 02/23/2016 Inactive Levaquin 500 mg tablet RxNorm: 155818 1 Tablet(s) PO daily take a probiotic daily 12/14/2015 02/11/2016 Inactive Levaquin 500 mg tablet RxNorm: 146964 1 Tablet(s) PO daily take a probiotic daily 12/14/2015 12/13/2015 Inactive prednisone 20 mg tablet RxNorm: 256809 1 Tablet(s) PO BID 12/07/2015 12/13/2015 Inactive Augmentin 875 mg-125 mg tablet RxNorm: 547049 1 Tablet(s) PO BID 12/07/2015 12/13/2015 Inactive ceftriaxone 500 mg solution for injection RxNorm: 0255351 Inj 12/07/2015 12/07/2015 Inactive Phenergan with Codeine Syrup RxNorm: 5-10 Milliliter(s) PO Q6 PRN 12/07/2015 06/26/2017 Inactive alprazolam 0.25 mg tablet RxNorm: 936872 1 Tablet(s) PO daily as needed 11/27/2015 12/25/2015 Inactive (Response to an electronic controlled substance refill request - RxReferenceNumber: [id number]) trazodone 50 mg tablet RxNorm: 823099 TAKE 1 AND 1/2 TABLET AT BEDTIME FOR 2 WEEKS, MAY INCREASE TO 2 TABLETS IF NECESSARY AFTER THAT 11/26/2015 02/24/2016 Inactive ceftriaxone 500 mg solution for injection RxNorm: 7051671 Milliliter(s) Inj 11/24/2015 11/24/2015 Inactive prednisone 10 mg tablet RxNorm: 689698 3 Tablet(s) PO daily 11/24/2015 11/28/2015 Inactive cefdinir 300 mg capsule RxNorm: 785027 1 Capsule(s) PO BID 11/24/2015 11/30/2015 Inactive Kenalog 40 mg/mL suspension for injection RxNorm: 0379770 1 Milliliter(s) Inj 11/24/2015 11/24/2015 Inactive Lexapro 20 mg tablet RxNorm: 709201 TAKE 1/2 TABLET BY MOUTH DAILY FOR 10 DAYS, THEN TAKE ONE TABLET BY MOUTH DAILY 11/23/2015 05/20/2016 Inactive Lipitor 10 mg tablet RxNorm: 834168 Tablet(s) TAKE ONE TABLET BY MOUTH EVERY DAY 10/26/2015 11/06/2016 Inactive Norvasc 10 mg tablet RxNorm: 323188 Tablet(s) PO TAKE ONE TABLET BY MOUTH EVERY DAY 10/26/2015 01/18/2018 Inactive hydrochlorothiazide 25 mg tablet RxNorm: 400528 TAKE ONE TABLET BY MOUTH DAILY 10/20/2015 01/17/2016 Inactive promethazine 25 mg/mL injection solution RxNorm: 425879 Milliliter(s) Inj 08/27/2015 08/27/2015 Inactive ketorolac 60 mg/2 mL intramuscular solution RxNorm: 808657 Milliliter(s) IM 08/27/2015 08/27/2015 Inactive alprazolam 0.25 mg tablet RxNorm: 676879 1 Tablet(s) PO daily as needed 08/27/2015 10/25/2017 Inactive (Response to an electronic controlled substance refill request - RxReferenceNumber: [id number]) Lexapro 20 mg tablet RxNorm: 500304 TAKE 1/2 TABLET BY MOUTH DAILY FOR 10 DAYS, THEN TAKE ONE TABLET BY MOUTH DAILY 08/13/2015 11/10/2015 Inactive Flonase 50 mcg/actuation nasal spray,suspension RxNorm: 015469 PLACE 1 SPRAY IN EACH NOSTRIL DAILY 08/13/2015 02/08/2016 Inactive Augmentin 500 mg-125 mg tablet RxNorm: 479662 1 Tablet(s) PO TID 08/10/2015 08/16/2015 Inactive Kenalog 40 mg/mL suspension for injection RxNorm: 4668603 Milliliter(s) Inj 08/10/2015 08/10/2015 Inactive ceftriaxone 500 mg solution for injection RxNorm: 3062128 Inj 08/10/2015 08/10/2015 Inactive nystatin 100,000 unit/mL oral suspension RxNorm: 811485 4 Milliliter(s) PO QID 08/10/2015 08/16/2015 Inactive trazodone 50 mg tablet RxNorm: 904242 TAKE 1 AND 1/2 TABLET AT BEDTIME FOR 2 WEEKS, MAY INCREASE TO 2 TABLETS IF NECESSARY AFTER THAT 07/31/2015 11/25/2015 Inactive ceftriaxone 500 mg solution for injection RxNorm: 2287565 1 Milliliter(s) Inj 07/28/2015 07/28/2015 Inactive Bactrim DS 800 mg-160 mg tablet RxNorm: 966431 1 Tablet(s) PO BID 07/28/2015 08/06/2015 Inactive Bactroban 2 % topical ointment RxNorm: 616022 1 Application TOP BID 07/28/2015 08/06/2015 Inactive Diflucan 150 mg tablet RxNorm: 049658 1 Tablet(s) PO daily 06/11/2015 06/17/2015 Inactive clotrimazole 1 % topical cream RxNorm: 844574 1 Application TOP BID 06/11/2015 07/10/2015 Inactive Bystolic 10 mg tablet RxNorm: 416665 TAKE ONE TABLET BY MOUTH DAILY 06/08/2015 12/04/2015 Inactive alprazolam 0.25 mg tablet RxNorm: 663337 1 Tablet(s) PO daily as needed 06/01/2015 08/25/2015 Inactive (Response to an electronic controlled substance refill request - RxReferenceNumber: [id number]) Fioricet 50 mg-325 mg-40 mg tablet RxNorm: 021577 Tablet(s) TAKE ONE TABLET BY MOUTH EVERY 4 HOURS NEEDED FOR headache 05/28/2015 06/08/2015 Inactive (Response to an electronic controlled substance refill request - RxReferenceNumber: [id number]) trazodone 50 mg tablet RxNorm: 396921 TAKE 1 AND 1/2 TABLET AT BEDTIME FOR 2 WEEKS, MAY INCREASE TO 2 TABLETS IF NECESSARY AFTER THAT 05/25/2015 08/22/2015 Inactive trazodone 50 mg tablet RxNorm: 492821 TAKE 1 AND 1/2 TABLET AT BEDTIME FOR 2 WEEKS, MAY INCREASE TO 2 TABLETS IF NECESSARY AFTER THAT 05/25/2015 05/24/2015 Inactive Synthroid 100 mcg tablet RxNorm: 579053 TAKE ONE TABLET BY MOUTH DAILY 04/23/2015 01/17/2016 Inactive Lipitor 10 mg tablet RxNorm: 584566 TAKE ONE TABLET BY MOUTH EVERY DAY 04/23/2015 10/25/2015 Inactive Kenalog 40 mg/mL suspension for injection RxNorm: 9999928 Milliliter(s) Inj 03/19/2015 03/19/2015 Inactive Lexapro 20 mg tablet RxNorm: 943147 1 Tablet(s) PO daily 03/19/2015 07/16/2015 Inactive 1/2 tab daily x 10 days then 1 tab daily hydrocodone 10 mg-acetaminophen 325 mg tablet RxNorm: 461607 Tablet(s) PO TAKE ONE TO TWO TABLETS BY MOUTH EVERY 6 HOURS NEEDED FOR PAIN 03/19/2015 06/06/2016 Inactive (Appended: Controlled substance eRx refill - RxReferenceNumber: [id number]) Carafate 1 gram tablet RxNorm: 898497 1 Tablet(s) PO AC & HS 03/19/2015 06/16/2015 Inactive dissolve in water and take as a slurry hydrochlorothiazide 25 mg tablet RxNorm: 416992 1 Tablet(s) PO daily 03/12/2015 09/07/2015 Inactive Nexium 40 mg capsule,delayed release RxNorm: 579762 TAKE ONE CAPSULE BY MOUTH EVERY DAY 02/26/2015 12/22/2015 Inactive Cymbalta 60 mg capsule,delayed release RxNorm: 741504 TAKE ONE CAPSULE BY MOUTH TWICE A DAY 02/23/2015 03/18/2015 Inactive alprazolam 0.25 mg tablet RxNorm: 672038 1 Tablet(s) PO daily as needed 02/11/2015 05/10/2015 Inactive (Response to an electronic controlled substance refill request - RxReferenceNumber: [id number]) trazodone 50 mg tablet RxNorm: 349812 TAKE 1 AND 1/2 TABLET AT BEDTIME FOR 2 WEEKS, MAY INCREASE TO 2 TABLETS IF NECESSARY AFTER THAT 01/27/2015 05/24/2015 Inactive Augmentin 500 mg-125 mg tablet RxNorm: 188967 1 Tablet(s) PO TID 01/07/2015 01/13/2015 Inactive gentamicin 0.3 % eye drops RxNorm: 581657 3 Drop(s) OPH QID 01/07/2015 01/13/2015 Inactive [AttnRPh: Saving apply/adjudicate RxGRP:[id number] RxBIN:[id number] RxPCN: ID#:[id number]] scopolamine 1.5 mg transdermal 72 hour patch RxNorm: 457660 1 Patch TD q72 hours 01/07/2015 11/23/2015 Inactive Synthroid 100 mcg tablet RxNorm: 587299 TAKE ONE TABLET BY MOUTH ONCE A DAY 01/06/2015 04/22/2015 Inactive nystatin 100,000 unit/gram topical powder RxNorm: 422439 APPLY TOPICALLY TWO TIMES A DAY 12/18/2014 03/17/2015 Inactive alprazolam 0.25 mg tablet RxNorm: 861897 TAKE ONE TABLET BY MOUTH DAILY NEEDED 10/30/2014 11/28/2014 Inactive (Response to an electronic controlled substance refill request - RxReferenceNumber: [id number]) alprazolam 0.25 mg tablet RxNorm: 803536 Tablet(s) TAKE ONE TABLET BY MOUTH DAILY 10/30/2014 10/29/2014 Inactive (Response to an electronic controlled substance refill request - RxReferenceNumber: [id number]) Lipitor 10 mg tablet RxNorm: 350302 TAKE ONE TABLET BY MOUTH EVERY DAY 10/30/2014 02/26/2015 Inactive alprazolam 0.25 mg tablet RxNorm: 676691 TAKE ONE TABLET BY MOUTH DAILY 10/07/2014 10/29/2014 Inactive (Response to an electronic controlled substance refill request - RxReferenceNumber: [id number]) alprazolam 0.25 mg tablet RxNorm: 819152 TAKE ONE TABLET BY MOUTH DAILY 10/06/2014 10/07/2014 Inactive (Response to an electronic controlled substance refill request - RxReferenceNumber: [id number]) alprazolam 0.25 mg tablet RxNorm: 804300 Tablet(s) TAKE ONE TABLET BY MOUTH EVERY DAY NEEDED 09/30/2014 10/06/2014 Inactive (Response to an electronic controlled substance refill request - RxReferenceNumber: [id number]) Fioricet 50 mg-325 mg-40 mg tablet RxNorm: 639332 Tablet(s) TAKE ONE TABLET BY MOUTH EVERY 4 HOURS NEEDED FOR headache 09/29/2014 10/12/2014 Inactive (Response to an electronic controlled substance refill request - RxReferenceNumber: [id number]) Bystolic 10 mg tablet RxNorm: 845550 1 Tablet(s) PO daily TAKE ONE TABLET BY MOUTH EVERY DAY 09/29/2014 04/26/2015 Inactive Bystolic 5 mg tablet RxNorm: 462089 TAKE 1 AND 1/2 TABLETS ONCE DAILY 09/24/2014 09/23/2014 Inactive Bystolic 5 mg tablet RxNorm: 764810 Tablet(s) TAKE 1 AND 1/2 TABLETS ONCE DAILY 09/24/2014 09/18/2015 Inactive gentamicin 0.3 % eye drops RxNorm: 119074 3 Drop(s) OPH QID 09/23/2014 09/29/2014 Inactive trazodone 50 mg tablet RxNorm: 432600 TAKE 1 AND 1/2 TABLET AT BEDTIME FOR 2 WEEKS, MAY INCREASE TO 2 TABLETS IF NECESSARY AFTER THAT 09/22/2014 01/26/2015 Inactive Fioricet 50 mg-325 mg-40 mg tablet RxNorm: 442939 TAKE ONE TABLET BY MOUTH EVERY 4 HOURS NEEDED FOR PAIN 09/17/2014 09/28/2014 Inactive (Response to an electronic controlled substance refill request - RxReferenceNumber: [id number]) Duragesic 50 mcg/hr transdermal patch RxNorm: 263510 1 TD q72 hours 08/07/2014 01/06/2015 Inactive [SAVINGS FOR UNINSURED PATIENTS -- BIN:[id number], PCN: [id number], Group: [id number], ID# [id number], Process claim through Dr. TATTOFF, for questions: . THIS IS NOT INSURANCE.] alprazolam 0.25 mg tablet RxNorm: 767652 TAKE ONE TABLET BY MOUTH EVERY DAY NEEDED 07/31/2014 08/29/2014 Inactive (Response to an electronic controlled substance refill request - RxReferenceNumber: [id number]) alprazolam 0.25 mg tablet RxNorm: 486421 1 Tablet(s) PO daily as needed TAKE ONE TABLET BY MOUTH EVERY DAY NEEDED 07/30/2014 08/01/2014 Inactive (Response to an electronic controlled substance refill request - RxReferenceNumber: [id number]) Diflucan 150 mg tablet RxNorm: 858987 1 Tablet(s) PO daily 06/25/2014 07/01/2014 Inactive [SAVINGS FOR UNINSURED PATIENTS -- BIN:[id number], PCN: ASPROD1, Group: [id number], ID# [id number], Process claim through MedImp[employer], for questions: . THIS IS NOT INSURANCE.] Kenalog 40 mg/mL suspension for injection RxNorm: 7937019 Milliliter(s) Inj 06/23/2014 06/23/2014 Inactive [SAVINGS FOR UNINSURED PATIENTS -- BIN:577995, PCN: ASPROD1, Group: [id number], ID# [id number], Process claim through MedImp[employer], for questions: . THIS IS NOT INSURANCE.] ceftriaxone 500 mg solution for injection RxNorm: 571140 Inj 06/23/2014 06/23/2014 Inactive [SAVINGS FOR UNINSURED PATIENTS -- BIN:373601, PCN: ASPROD1, Group: [id number], ID# [id number], Process claim through [employer], for questions: . THIS IS NOT INSURANCE.] Levaquin 500 mg tablet RxNorm: 530264 1 Tablet(s) PO daily 06/23/2014 07/13/2014 Inactive [SAVINGS FOR UNINSURED PATIENTS -- BIN:247432, PCN: ASPROD1, Group: [id number], ID# [id number], Process claim through MedImp[employer], for questions: . THIS IS NOT INSURANCE.] Duragesic 50 mcg/hr transdermal patch RxNorm: 734639 1 TD q72 hours 06/05/2014 08/06/2014 Inactive [SAVINGS FOR UNINSURED PATIENTS -- BIN:[id number], PCN: ASPROD1, Group: [id number], ID# [id number], Process claim through Dr. TATTOFF, for questions: . THIS IS NOT INSURANCE.] alprazolam 0.25 mg tablet RxNorm: 781985 1 Tablet(s) PO daily as needed TAKE ONE TABLET BY MOUTH EVERY DAY NEEDED 06/02/2014 07/29/2014 Inactive (Response to an electronic controlled substance refill request - RxReferenceNumber: [id number]) nystatin 100,000 unit/gram topical powder RxNorm: 477236 APPLY TO AFFECTED AREA(S) TWO TIMES A DAY 05/01/2014 06/14/2014 Inactive hydrochlorothiazide 25 mg tablet RxNorm: 885838 TAKE ONE TABLET BY MOUTH EVERY DAY MUST CALL MD FOR APPOINTMENT 04/24/2014 10/20/2014 Inactive alprazolam 0.25 mg tablet RxNorm: 538987 Tablet(s) TAKE ONE TABLET BY MOUTH EVERY DAY NEEDED 04/16/2014 06/02/2014 Inactive (Response to an electronic controlled substance refill request - RxReferenceNumber: [id number]) alprazolam 0.25 mg tablet RxNorm: 077521 TAKE ONE TABLET BY MOUTH EVERY DAY NEEDED 04/16/2014 05/15/2014 Inactive (Response to an electronic controlled substance refill request - RxReferenceNumber: [id number]) alprazolam 0.25 mg tablet RxNorm: 151234 TAKE ONE TABLET BY MOUTH EVERY DAY NEEDED 04/16/2014 05/15/2014 Inactive (Response to an electronic controlled substance refill request - RxReferenceNumber: [id number]) alprazolam 0.25 mg tablet RxNorm: 124971 TAKE ONE TABLET BY MOUTH EVERY DAY NEEDED 04/14/2014 04/16/2014 Inactive (Response to an electronic controlled substance refill request - RxReferenceNumber: [id number]) Lipitor 10 mg tablet RxNorm: 430385 TAKE ONE TABLET BY MOUTH EVERY DAY 04/14/2014 09/10/2014 Inactive alprazolam 0.25 mg tablet RxNorm: 745237 TAKE ONE TABLET BY MOUTH EVERY DAY NEEDED 04/14/2014 04/14/2014 Inactive (Response to an electronic controlled substance refill request - RxReferenceNumber: [id number]) alprazolam 0.25 mg tablet RxNorm: 181662 TAKE ONE TABLET BY MOUTH EVERY DAY NEEDED 04/14/2014 04/15/2014 Inactive (Response to an electronic controlled substance refill request - RxReferenceNumber: [id number]) alprazolam 0.25 mg tablet RxNorm: 607989 TAKE ONE TABLET BY MOUTH EVERY DAY NEEDED 04/14/2014 04/14/2014 Inactive (Response to an electronic controlled substance refill request - RxReferenceNumber: [id number]) nystatin 100,000 unit/gram topical powder RxNorm: 799353 1 Application TOP BID 04/03/2014 07/01/2014 Inactive [SAVINGS FOR UNINSURED PATIENTS -- BIN:[id number], PCN: ASPROD1, Group: [id number], ID# [id number], Process claim through [employer], for questions: . THIS IS NOT INSURANCE.] Keflex 500 mg capsule RxNorm: 746187 1 Capsule(s) PO QID 04/03/2014 04/09/2014 Inactive [SAVINGS FOR UNINSURED PATIENTS -- BIN:779703, PCN: ASPROD1, Group: [id number], ID# [id number], Process claim through [employer]Imp[employer], for questions: . THIS IS NOT INSURANCE.] Synthroid 100 mcg tablet RxNorm: 557258 1 Tablet(s) PO daily TAKE ONE TABLET BY MOUTH EVERY DAY 04/01/2014 01/05/2015 Inactive [SAVINGS FOR UNINSURED PATIENTS -- BIN:668448, PCN: ASPROD1, Group: [id number], ID# [id number], Process claim through [employer], for questions: . THIS IS NOT INSURANCE.] Duragesic 50 mcg/hr transdermal patch RxNorm: 341300 1 TD q72 hours 03/24/2014 06/04/2014 Inactive [SAVINGS FOR UNINSURED PATIENTS -- BIN:142725, PCN: ASPROD1, Group: [id number], ID# [id number], Process claim through [employer], for questions: . THIS IS NOT INSURANCE.] trazodone 50 mg tablet RxNorm: 316244 TAKE 1 AND 1/2 TABLET AT BEDTIME FOR 2 WEEKS, MAY INCREASE TO 2 TABLETS IF NECESSARY AFTER THAT 03/18/2014 09/13/2014 Inactive nystatin 100,000 unit/gram topical powder RxNorm: 829588 1 Application TOP BID 03/07/2014 03/16/2014 Inactive [SAVINGS FOR UNINSURED PATIENTS -- BIN:069405, PCN: ASPROD1, Group: [id number], ID# [id number], Process claim through [employer]Imp[employer], for questions: . THIS IS NOT INSURANCE.] permethrin 5 % topical cream RxNorm: 876561 1 Application TOP daily 03/07/2014 11/23/2015 Inactive apply head to toe-leave on overnight and wash off in the a.m. May repeat x 1 if needed Diflucan 150 mg tablet RxNorm: 544550 1 Tablet(s) PO daily 03/07/2014 03/09/2014 Inactive [SAVINGS FOR UNINSURED PATIENTS -- BIN:946763, PCN: ASPROD1, Group: [id number], ID# [id number], Process claim through [employer]Imp[employer], for questions: . THIS IS NOT INSURANCE.] hydrochlorothiazide 25 mg tablet RxNorm: 317041 TAKE ONE TABLET BY MOUTH EVERY DAY MUST CALL MD FOR APPOINTMENT 03/06/2014 04/23/2014 Inactive Zithromax Z-Sergio 250 mg tablet RxNorm: 442631 Tablet(s) PO as directed 03/04/2014 11/23/2015 Inactive [SAVINGS FOR UNINSURED PATIENTS -- BIN:896255, PCN: ASPROD1, Group: [id number], ID# [id number], Process claim through MedImp[employer], for questions: . THIS IS NOT INSURANCE.] Flonase 50 mcg/actuation nasal spray,suspension RxNorm: 348817 1 [place] NASAL daily 03/04/2014 07/01/2014 Inactive [SAVINGS FOR UNINSURED PATIENTS -- BIN:835868, PCN: ASPROD1, Group: [id number], ID# [id number], Process claim through [employer]Impact, for questions: . THIS IS NOT INSURANCE.] alprazolam 0.25 mg tablet RxNorm: 676283 1 Tablet(s) PO PRN TAKE ONE TABLET BY MOUTH EVERY DAY NEEDED 02/25/2014 04/14/2014 Inactive (Appended: Controlled substance eRx refill - RxReferenceNumber: [id number]) alprazolam 0.25 mg tablet RxNorm: 063420 TAKE ONE TABLET BY MOUTH EVERY DAY NEEDED 02/21/2014 03/22/2014 Inactive (Response to an electronic controlled substance refill request - RxReferenceNumber: [id number]) alprazolam 0.25 mg tablet RxNorm: 597566 TAKE ONE TABLET BY MOUTH EVERY DAY NEEDED 02/21/2014 03/22/2014 Inactive (Response to an electronic controlled substance refill request - RxReferenceNumber: [id number]) alprazolam 0.25 mg tablet RxNorm: 214837 TAKE ONE TABLET BY MOUTH EVERY DAY NEEDED 02/18/2014 03/19/2014 Inactive (Response to an electronic controlled substance refill request - RxReferenceNumber: [id number]) Cymbalta 60 mg capsule,delayed release RxNorm: 183288 TAKE ONE CAPSULE BY MOUTH TWICE A DAY 02/18/2014 01/13/2015 Inactive Nexium 40 mg capsule,delayed release RxNorm: 236207 TAKE ONE CAPSULE BY MOUTH EVERY DAY 02/18/2014 01/13/2015 Inactive Bactrim DS 800 mg-160 mg tablet RxNorm: 812926 1 Tablet(s) PO BID 02/13/2014 02/19/2014 Inactive probiotic while one antibiotic Bactrim DS 800 mg-160 mg tablet RxNorm: 034084 1 Tablet(s) PO BID 02/13/2014 02/12/2014 Inactive hydrocodone 10 mg-acetaminophen 325 mg tablet RxNorm: 965198 Tablet(s) PO TAKE ONE TO TWO TABLETS BY MOUTH EVERY 6 HOURS NEEDED FOR PAIN 02/06/2014 03/18/2015 Inactive (Appended: Controlled substance eRx refill - RxReferenceNumber: [id number]) Abilify 2 mg tablet RxNorm: 974783 Tablet(s) PO TAKE ONE TABLET BY MOUTH EVERY NIGHT AT BEDTIME 02/03/2014 03/19/2015 Inactive Duragesic 50 mcg/hr transdermal patch RxNorm: 221148 1 TD q72 hours 01/14/2014 03/23/2014 Inactive alprazolam 0.25 mg tablet RxNorm: 238517 1 Tablet(s) PO QDAY PRN 01/14/2014 02/12/2014 Inactive alprazolam 0.25 mg tablet RxNorm: 748954 Tablet(s) PO TAKE ONE TABLET BY MOUTH EVERY DAY NEEDED 01/14/2014 02/24/2014 Inactive (Appended: Controlled substance eRx refill - RxReferenceNumber: [id number]) Lipitor 10 mg tablet RxNorm: 183623 Tablet(s) PO TAKE ONE TABLET BY MOUTH EVERY DAY 01/14/2014 04/13/2014 Inactive Synthroid 100 mcg tablet RxNorm: 784580 Tablet(s) PO TAKE ONE TABLET BY MOUTH EVERY DAY 2013 03/31/2014 Inactive Fioricet 50 mg-325 mg-40 mg tablet RxNorm: 486860 Tablet(s) PO TAKE ONE TABLET BY MOUTH EVERY 4 HOURS NEEDED FOR PAIN 11/27/2013 09/17/2014 Inactive Fioricet 50 mg-325 mg-40 mg tablet RxNorm: 853222 Tablet(s) PO TAKE ONE TABLET BY MOUTH EVERY 4 HOURS NEEDED FOR PAIN 11/25/2013 11/26/2013 Inactive Zithromax Z-Sergio 250 mg tablet RxNorm: 913651 Tablet(s) PO as directed 11/11/2013 01/13/2014 Inactive Bystolic 10 mg tablet RxNorm: 998836 Tablet(s) PO TAKE ONE TABLET BY MOUTH EVERY DAY 10/21/2013 09/28/2014 Inactive Abilify 2 mg tablet RxNorm: 218227 1 Tablet(s) PO QHS 09/25/2013 01/22/2014 Inactive Synthroid 100 mcg tablet RxNorm: 506981 Tablet(s) PO TAKE ONE TABLET BY MOUTH EVERY DAY 09/24/2013 12/25/2013 Inactive Abilify 2 mg tablet RxNorm: 093818 1 Tablet(s) PO QHS 09/24/2013 09/24/2013 Inactive Rocephin 500 mg solution for injection RxNorm: 149120 1ml Milliliter(s) Inj 09/24/2013 09/24/2013 Inactive Rocephin 500 mg solution for injection RxNorm: 266125 1 Milliliter(s) Inj 09/19/2013 09/19/2013 Inactive Bystolic 5 mg tablet RxNorm: 464896 1 1/2 Tablet(s) PO daily 09/17/2013 03/15/2014 Inactive 1 1/2 daily may have 90 day if cheaper Bystolic 5 mg tablet RxNorm: 059421 1 1/2 Tablet(s) PO daily 09/17/2013 09/16/2013 Inactive 1 1/2 daily Lipitor 10 mg tablet RxNorm: 845512 Tablet(s) PO TAKE ONE TABLET BY MOUTH EVERY DAY 09/12/2013 01/13/2014 Inactive hydrocodone 10 mg-acetaminophen 325 mg tablet RxNorm: 491705 Tablet(s) PO TAKE ONE TO TWO TABLETS BY MOUTH EVERY 6 HOURS NEEDED FOR PAIN 09/09/2013 10/29/2017 Inactive (Appended: Controlled substance eRx refill - RxReferenceNumber: [id number]) hydrocodone 10 mg-acetaminophen 325 mg tablet RxNorm: 235278 1 Tablet(s) PO Q6 PRN 09/09/2013 02/06/2014 Inactive hydrocodone 10 mg-acetaminophen 325 mg tablet RxNorm: 455822 Tablet(s) PO TAKE ONE TO TWO TABLETS BY MOUTH EVERY 6 HOURS NEEDED FOR PAIN 09/06/2013 10/29/2017 Inactive (Appended: Controlled substance eRx refill - RxReferenceNumber: [id number]) Norvasc 10 mg tablet RxNorm: 035067 Tablet(s) PO TAKE ONE TABLET BY MOUTH EVERY DAY 09/05/2013 10/25/2015 Inactive trazodone 50 mg tablet RxNorm: 983551 1 1/2 Tablet(s) PO QHS 09/03/2013 03/17/2014 Inactive 75q hs x 2 week may increase to 100mg if nec after that nystatin 100,000 unit/mL oral suspension RxNorm: 281258 6 Milliliter(s) PO QID 08/06/2013 08/15/2013 Inactive Flonase 50 mcg/actuation nasal spray,suspension RxNorm: 095673 2 [place] NASAL daily 08/06/2013 03/03/2014 Inactive nystatin 100,000 unit/mL oral suspension RxNorm: 993233 6 Unit(s) PO QID 08/05/2013 08/05/2013 Inactive Phenergan with Codeine Syrup RxNorm: 5 Milliliter(s) PO Q4 PRN 08/05/2013 12/02/2013 Inactive 8 ounces alprazolam 0.25 mg tablet RxNorm: 044605 1 Tablet(s) PO QDAY PRN 07/29/2013 01/14/2014 Inactive Diflucan 150 mg tablet RxNorm: 040224 1 Tablet(s) PO daily 07/24/2013 07/26/2013 Inactive hydrochlorothiazide 25 mg tablet RxNorm: 283261 Tablet(s) PO TAKE ONE TABLET BY MOUTH EVERY DAY MUST CALL MD FOR APPOINTMENT 07/19/2013 03/05/2014 Inactive Phenergan with Codeine Syrup RxNorm: 10 Milliliter(s) PO Q4 PRN 07/10/2013 08/04/2013 Inactive 8 ounces Rocephin 500 mg solution for injection RxNorm: 949871 1 Inj 07/10/2013 07/10/2013 Inactive cefdinir 300 mg capsule RxNorm: 226206 1 Capsule(s) PO BID 07/10/2013 07/16/2013 Inactive prednisone 10 mg tablet RxNorm: 099686 3 Tablet(s) PO daily 07/10/2013 07/14/2013 Inactive Carafate 100 mg/mL oral suspension RxNorm: 085366 10 Milliliter(s) PO Q6 PRN pt to take carafate 10mL every 6 hours as needed. 07/10/2013 08/05/2014 Inactive Kenalog 40 mg/mL suspension for injection RxNorm: 3834613 1 Milliliter(s) Inj 07/10/2013 07/10/2013 Inactive trazodone 50 mg tablet RxNorm: 126250 1 Tablet(s) PO QHS 07/10/2013 09/02/2013 Inactive sulfamethoxazole 800 mg-trimethoprim 160 mg tablet RxNorm: 321110 1 Tablet(s) PO BID 06/03/2013 06/12/2013 Inactive Synthroid 125 mcg tablet RxNorm: 177420 1 Tablet(s) PO daily 05/07/2013 09/23/2013 Inactive Bystolic 10 mg tablet RxNorm: 607530 1.5 Tablet(s) PO daily 05/07/2013 09/03/2013 Inactive Voltaren 1 % Topical Gel RxNorm: 320479 4 Gram(s) TOP QID apply 4 grams to knees, 2 grams to hands and ankles four times daily. 05/07/2013 09/03/2013 Inactive hydrocodone 10 mg-acetaminophen 325 mg tablet RxNorm: 638583 1 Tablet(s) PO Q6 PRN 04/23/2013 09/09/2013 Inactive Norvasc 10 mg tablet RxNorm: 203856 Tablet(s) PO TAKE ONE TABLET BY MOUTH EVERY DAY 04/23/2013 09/04/2013 Inactive alprazolam 0.25 mg tablet RxNorm: 257988 1 Tablet(s) PO QDAY PRN 03/25/2013 07/22/2013 Inactive Bystolic 10 mg tablet RxNorm: 212359 1 Tablet(s) PO daily TAKE ONE TABLET BY MOUTH EVERY DAY 03/25/2013 05/06/2013 Inactive zolpidem 10 mg tablet RxNorm: 968376 1 Tablet(s) PO HS PRN 03/25/2013 07/09/2013 Inactive gentamicin 0.3 % Eye Drops RxNorm: 7602168 3 Drop(s) OPH QID three gtts to each eye QID x 7 days 03/11/2013 03/10/2013 Inactive gentamicin 0.3 % eye drops RxNorm: 056164 3 Drop(s) OPH QID three gtts to each eye QID x 7 days 03/11/2013 03/17/2013 Inactive Nexium 40 mg capsule,delayed release RxNorm: 830138 Capsule(s) PO TAKE ONE CAPSULE BY MOUTH EVERY DAY 02/15/2013 02/17/2014 Inactive Cymbalta 60 mg capsule,delayed release RxNorm: 020532 Capsule(s) PO TAKE ONE CAPSULE BY MOUTH TWICE A DAY 02/15/2013 02/17/2014 Inactive hydrocodone 10 mg-acetaminophen 325 mg tablet RxNorm: 4609145 1 Tablet(s) PO Q6 PRN 01/22/2013 04/22/2013 Inactive Lipitor 10 mg tablet RxNorm: 955438 Tablet(s) PO TAKE ONE TABLET BY MOUTH EVERY DAY 01/07/2013 09/11/2013 Inactive Cymbalta 60 mg capsule,delayed release RxNorm: 508105 Capsule(s) PO TAKE ONE CAPSULE BY MOUTH TWICE A DAY 01/02/2013 02/14/2013 Inactive Synthroid 100 mcg tablet RxNorm: 263584 1 Tablet(s) PO 12/03/2012 05/06/2013 Inactive Enablex 7.5 mg tablet,extended release RxNorm: 576860 1 Tablet(s) PO daily 11/28/2012 11/27/2012 Inactive Enablex 7.5 mg tablet,extended release RxNorm: 641881 1 Tablet(s) PO daily 11/28/2012 11/28/2012 Inactive scopolamine 1.5 mg 72 hr Transderm Patch RxNorm: 338688 1 Milligram(s) TD q72 hours 11/26/2012 05/06/2013 Inactive hydrochlorothiazide 25 mg tablet RxNorm: 495952 Tablet(s) PO TAKE ONE TABLET BY MOUTH EVERY DAY MUST CALL MD FOR APPOINTMENT 11/24/2012 07/18/2013 Inactive Cymbalta 60 mg capsule,delayed release RxNorm: 602074 Capsule(s) PO TAKE ONE CAPSULE BY MOUTH TWICE A DAY 10/26/2012 01/01/2013 Inactive Bystolic 10 mg tablet RxNorm: 278152 Tablet(s) PO TAKE ONE TABLET BY MOUTH EVERY DAY 10/12/2012 03/25/2013 Inactive zolpidem 10 mg tablet RxNorm: 294779 1 Tablet(s) PO HS PRN 10/02/2012 01/29/2013 Inactive alprazolam 0.25 mg tablet RxNorm: 395574 1 Tablet(s) PO QDAY PRN 10/02/2012 01/29/2013 Inactive Kenalog 40 mg/mL Susp for Injection RxNorm: 9035208 1 Milliliter(s) Inj 09/24/2012 09/24/2012 Inactive Diflucan 150 mg tablet RxNorm: 706431 1 Tablet(s) PO daily 09/24/2012 09/30/2012 Inactive acyclovir 400 mg tablet RxNorm: 089843 1 Tablet(s) PO QID 09/24/2012 10/08/2012 Inactive Cipro 500 mg tablet RxNorm: 491252 1 Tablet(s) PO BID 09/24/2012 09/30/2012 Inactive Tamiflu 75 mg capsule RxNorm: 602878 1 Capsule(s) PO BID 09/17/2012 09/16/2012 Inactive Tamiflu 75 mg capsule RxNorm: 991167 1 Capsule(s) PO BID 09/17/2012 09/16/2012 Inactive Tamiflu 75 mg capsule RxNorm: 574686 1 Capsule(s) PO BID please disregard order for #14 09/17/2012 09/21/2012 Inactive fluconazole 150 mg tablet RxNorm: 687781 1 Tablet(s) PO daily 09/10/2012 09/13/2012 Inactive ketoconazole 2 % Topical Cream RxNorm: 679143 Application TOP BID apply to affected area BID until gone 08/31/2012 11/01/2017 Inactive Norvasc 10 mg tablet RxNorm: 605004 Tablet(s) PO TAKE ONE TABLET BY MOUTH EVERY DAY 08/29/2012 04/22/2013 Inactive Cipro 500 mg tablet RxNorm: 511130 1 Tablet(s) PO BID 08/17/2012 08/26/2012 Inactive Flagyl 500 mg tablet RxNorm: 899881 1 Tablet(s) PO TID 08/17/2012 08/23/2012 Inactive Cipro 500 mg tablet RxNorm: 349093 1 Tablet(s) PO BID 08/17/2012 08/16/2012 Inactive zolpidem 10 mg tablet RxNorm: 766543 1 Tablet(s) PO HS PRN 08/17/2012 09/15/2012 Inactive Flagyl 500 mg tablet RxNorm: 017769 1 Tablet(s) PO TID 08/17/2012 08/16/2012 Inactive alprazolam 0.25 mg tablet RxNorm: 876540 1 Tablet(s) PO QDAY PRN 08/17/2012 09/15/2012 Inactive [place] Allergy 180 mg tablet RxNorm: 557725 1 Tablet(s) PO daily 08/08/2012 02/03/2013 Inactive hydrochlorothiazide 25 mg tablet RxNorm: 468756 1/2 Tablet(s) PO daily 08/08/2012 11/05/2012 Inactive needs appt Carafate 1 gram tablet RxNorm: 419224 1 Tablet(s) PO QID mix with 10 cc water and dissolve into slurry 08/08/2012 08/21/2012 Inactive hydrocodone 10 mg-acetaminophen 325 mg tablet RxNorm: 0535841 1 Tablet(s) PO Q6 PRN 08/08/2012 01/21/2013 Inactive Synthroid 100 mcg tablet RxNorm: 578552 1 Tablet(s) PO 08/08/2012 12/02/2012 Inactive Cymbalta 60 mg capsule,delayed release RxNorm: 644352 Capsule(s) PO 07/23/2012 10/25/2012 Inactive TAKE ONE CAPSULE BY MOUTH TWICE A DAY Nexium 40 mg capsule,delayed release RxNorm: 259082 Capsule(s) PO 06/20/2012 02/14/2013 Inactive TAKE ONE CAPSULE BY MOUTH EVERY DAY Lipitor 10 mg tablet RxNorm: 838005 Tablet(s) PO 06/20/2012 01/06/2013 Inactive TAKE ONE TABLET BY MOUTH EVERY DAY hydrochlorothiazide 25 mg tablet RxNorm: 903008 1 Tablet(s) PO daily 06/19/2012 08/07/2012 Inactive needs appt alprazolam 0.25 mg tablet RxNorm: 793153 1 Tablet(s) PO QDAY PRN 06/05/2012 07/04/2012 Inactive zolpidem 10 mg tablet RxNorm: 390916 1 Tablet(s) PO HS PRN 06/05/2012 07/04/2012 Inactive zolpidem 10 mg tablet RxNorm: 280890 1 Tablet(s) PO HS PRN 04/16/2012 05/15/2012 Inactive alprazolam 0.25 mg tablet RxNorm: 557219 1 Tablet(s) PO QDAY PRN 04/16/2012 05/15/2012 Inactive Cymbalta 60 mg capsule,delayed release RxNorm: 517249 1 Capsule(s) PO BID 03/22/2012 07/19/2012 Inactive Fioricet 50 mg-325 mg-40 mg tablet RxNorm: 063184 1 Tablet(s) PO Q4 PRN 03/22/2012 11/24/2013 Inactive Bystolic 10 mg tablet RxNorm: 757631 Tablet(s) PO 03/22/2012 10/11/2012 Inactive TAKE ONE TABLET BY MOUTH EVERY DAY potassium chloride ER 10 mEq Tab RxNorm: 694043 1 Tablet(s) PO daily 02/24/2012 03/01/2012 Inactive Lasix 20 mg Tab RxNorm: 102917 1 Tablet(s) PO daily 02/22/2012 02/21/2012 Inactive KCL 10 meq RxNorm: 1 PO daily 02/22/2012 02/21/2012 Inactive potassium chloride ER 10 mEq Tab RxNorm: 691602 1 Tablet(s) PO daily 02/22/2012 02/21/2012 Inactive Lasix 20 mg Tab RxNorm: 955944 1 Tablet(s) PO daily 02/22/2012 02/28/2012 Inactive KCL 10 meq RxNorm: 1 PO daily 02/22/2012 02/22/2012 Inactive potassium chloride ER 10 mEq Tab RxNorm: 326936 1 Tablet(s) PO daily 02/22/2012 02/23/2012 Inactive Rocephin 500 mg Solution for Injection RxNorm: 738937 Inj 02/15/2012 02/15/2012 Inactive Nexium 40 mg capsule,delayed release RxNorm: 451132 1 Capsule(s) PO daily 02/15/2012 No Stop Date Active Bystolic 10 mg Tab RxNorm: 176808 1 Tablet(s) PO daily 02/15/2012 08/12/2012 Inactive alprazolam 0.25 mg tablet RxNorm: 311283 1 Tablet(s) PO QDAY PRN 01/31/2012 02/29/2012 Inactive zolpidem 10 mg tablet RxNorm: 082703 1 Tablet(s) PO HS PRN 01/31/2012 02/29/2012 Inactive alprazolam 0.25 mg Tab RxNorm: 882268 1 Tablet(s) PO QDAY PRN 12/16/2011 01/14/2012 Inactive zolpidem 10 mg Tab RxNorm: 000398 1 Tablet(s) PO HS PRN 12/16/2011 01/14/2012 Inactive Norvasc 10 mg tablet RxNorm: 716707 1 Tablet(s) PO daily 12/02/2011 02/21/2012 Inactive Lipitor 10 mg tablet RxNorm: 225995 1 Tablet(s) PO daily 11/16/2011 05/13/2012 Inactive zolpidem 10 mg Tab RxNorm: 181831 1 Tablet(s) PO HS PRN 10/26/2011 12/15/2011 Inactive alprazolam 0.25 mg Tab RxNorm: 724693 1 Tablet(s) PO QDAY PRN 10/26/2011 12/15/2011 Inactive hydrochlorothiazide 25 mg tablet RxNorm: 552163 1 Tablet(s) PO daily 09/05/2011 03/02/2012 Inactive Synthroid 75 mcg tablet RxNorm: 972380 1 Tablet(s) PO daily 08/01/2011 02/26/2012 Inactive Abilify 2 mg Tab RxNorm: 885986 1 Tablet(s) PO QHS 08/01/2011 09/10/2012 Inactive dicyclomine 10 mg Cap RxNorm: 236793 1 Capsule(s) PO TID 08/01/2011 10/29/2011 Inactive alprazolam 0.25 mg Tab RxNorm: 463187 1 Tablet(s) PO QDAY PRN 07/26/2011 10/25/2011 Inactive Fioricet 50 mg-325 mg-40 mg tablet RxNorm: 532612 1 Tablet(s) PO Q4 PRN 07/14/2011 03/21/2012 Inactive Rocephin 500 mg Solution for Injection RxNorm: 719048 1 Milliliter(s) Inj 07/14/2011 08/01/2011 Inactive Nexium 40 mg Capsule, delayed release RxNorm: 612142 1 Capsule(s) PO daily 05/23/2011 10/06/2011 Inactive Bystolic 10 mg tablet RxNorm: 471536 1 Tablet(s) PO daily 05/23/2011 11/18/2011 Inactive Bystolic 10 mg Tab RxNorm: 659749 1 Tablet(s) PO daily 05/23/2011 05/22/2011 Inactive alprazolam 0.25 mg Tab RxNorm: 864862 1 Tablet(s) PO QDAY PRN 05/23/2011 07/25/2011 Inactive Influenza Virus Vaccine 0.5 mL RxNorm: IM 05/23/2011 05/23/2011 Inactive zolpidem 10 mg Tab RxNorm: 882765 1 Tablet(s) PO HS PRN 05/23/2011 10/25/2011 Inactive Rocephin 500 mg Solution for Injection RxNorm: 006120 1 Milliliter(s) Inj 05/03/2011 07/14/2011 Inactive Kenalog 40 mg/mL Susp for Injection RxNorm: 7203802 1 Milliliter(s) Inj 05/03/2011 07/14/2011 Inactive Bactrim DS 800 mg-160 mg Tab RxNorm: 145726 1 Tablet(s) PO BID 05/03/2011 08/01/2011 Inactive Bystolic 10 mg tablet RxNorm: 092940 1 Tablet(s) PO daily No Start Date Active Flonase 50 mcg/actuation nasal spray,suspension RxNorm: 5240413 2 [place] NASAL daily No Start Date 08/05/2013 Inactive Levaquin 500 mg tablet RxNorm: 142419 Tablet(s) PO No Start Date 04/19/2017 Inactive Duragesic 50 mcg/hr transdermal patch RxNorm: 485015 1 TD q72 hours No Start Date 01/13/2014 Inactive Vesicare 5 mg tablet RxNorm: 243989 1 Tablet(s) PO daily No Start Date 01/06/2015 Inactive Celebrex 200 mg capsule RxNorm: 913245 1 Capsule(s) PO daily No Start Date 04/02/2014 Inactive zolpidem 10 mg Tab RxNorm: 541247 1 Tablet(s) PO HS PRN No Start Date 05/22/2011 Inactive Zyrtec 10 mg Tab RxNorm: 3229080 1 Tablet(s) PO daily No Start Date 08/08/2012 Inactive Flonase 50 mcg/actuation nasal spray,suspension RxNorm: 9095279 1 [place] NASAL daily No Start Date 11/07/2017 Inactive 1 spray to each nostril daily Nexium 40 mg Cap RxNorm: 129689 1 Capsule(s) PO daily No Start Date 05/22/2011 Inactive ketoconazole 2 % Topical Cream RxNorm: 875565 Application TOP BID apply to affected area BID until gone No Start Date 08/30/2012 Inactive aspirin 81 mg tablet RxNorm: 697581 1 Tablet(s) PO daily No Start Date 11/13/2017 Inactive Cymbalta 60 mg capsule,delayed release RxNorm: 077485 1 Capsule(s) PO BID No Start Date 03/21/2012 Inactive alprazolam 0.25 mg Tab RxNorm: 260377 1 Tablet(s) PO QDAY PRN No Start Date 05/22/2011 Inactive baclofen 10 mg tablet RxNorm: 424008 1 Tablet(s) PO TID as needed muscle spasms No Start Date 11/14/2017 Inactive Toprol XL 100 mg 24 hr Tab RxNorm: 517702 1 Tablet(s) PO BID No Start Date 04/25/2011 Inactive Xanax 0.25 mg tablet RxNorm: 953165 1 Tablet(s) PO daily as needed No Start Date 12/27/2015 Inactive Bystolic 10 mg Tab RxNorm: 250137 1 Tablet(s) PO daily No Start Date 05/22/2011 Inactive Fioricet 50 mg-325 mg-40 mg Tab RxNorm: 217428 1 Tablet(s) PO Q4 PRN No Start Date 07/13/2011 Inactive albuterol sulfate HFA 90 mcg/Actuation Aerosol Inhaler RxNorm: 9534969 1 INH Q4 PRN No Start Date 01/06/2015 Inactive Imitrex 50 mg tablet RxNorm: 807449 1 Tablet(s) PO Q8 as needed may repeat x1 dose in 1 hour of inital dose. No Start Date 02/24/2016 Inactive dc fioricet Tessalon 200 mg Cap RxNorm: 045427 1 Capsule(s) PO Q4 PRN No Start Date 02/14/2012 Inactive Zithromax Z-Sergio 250 mg tablet RxNorm: 878331 Tablet(s) PO No Start Date 11/10/2013 Inactive hydrochlorothiazide 25 mg Tab RxNorm: 482314 1 Tablet(s) PO daily No Start Date 09/04/2011 Inactive Fish Oil 1,000 mg Cap RxNorm: 1 Capsule(s) PO TID No Start Date 11/08/2017 Inactive Deplin 15 mg Tab RxNorm: 1 Tablet(s) PO daily No Start Date 08/01/2011 Inactive Brilinta 90 mg tablet RxNorm: 9551431 1 Tablet(s) PO BID No Start Date 11/23/2015 Inactive Synthroid 75 mcg Tab RxNorm: 334230 1 Tablet(s) PO daily No Start Date 07/31/2011 Inactive ciprofloxacin 0.3 % eye drops RxNorm: 240928 2 Drop(s) ophthalmic (eye) Q2H while awake x 2 days, then Q4H x 5 days No Start Date 11/22/2017 Inactive scopolamine 1.5 mg 72 hr Transderm Patch RxNorm: 495496 1 Milligram(s) TD q72 hours No Start Date 11/25/2012 Inactive hydrocodone-acetaminophen 10 mg-325 mg tablet RxNorm: 3094393 1 Tablet(s) PO Q6 PRN No Start Date 08/07/2012 Inactive Phenergan with Codeine Syrup RxNorm: 5-10 Milliliter(s) PO Q6 PRN No Start Date 02/14/2012 Inactive Norvasc 10 mg Tab RxNorm: 637132 1 Tablet(s) PO daily No Start Date 12/01/2011 Inactive Zithromax Z-Sergio 250 mg Tab RxNorm: 939531 Tablet(s) PO No Start Date 08/01/2011 Inactive Medication Administered Medication Codes Instructions Start Date Status ceftriaxone 500 mg solution for injection RxNorm: 5930618 05/28/2018 No longer Active Kenalog 40 mg/mL suspension for injection RxNorm: 2974354 Milliliter 05/28/2018 No longer Active Kenalog 40 mg/mL suspension for injection RxNorm: 0847025 1Milliliter 01/19/2018 No longer Active ceftriaxone 500 mg solution for injection RxNorm: 7667816 500Milligram 01/19/2018 No longer Active Kenalog 40 mg/mL suspension for injection RxNorm: 6590752 1Milliliter 06/27/2017 No longer Active Kenalog 40 mg/mL suspension for injection RxNorm: 8642193 Milliliter 04/20/2017 No longer Active Kenalog 40 mg/mL suspension for injection RxNorm: 4650891 1Milliliter 03/14/2017 No longer Active ceftriaxone 500 mg solution for injection RxNorm: 6526741 1Milliliter 11/28/2016 No longer Active ceftriaxone 500 mg solution for injection RxNorm: 9715477 11/07/2016 No longer Active Kenalog 40 mg/mL suspension for injection RxNorm: 7937359 Milliliter 11/07/2016 No longer Active ceftriaxone 500 mg solution for injection RxNorm: 3697338 12/07/2015 No longer Active ceftriaxone 500 mg solution for injection RxNorm: 1477480 Milliliter 11/24/2015 No longer Active Kenalog 40 mg/mL suspension for injection RxNorm: 5685749 1Milliliter 11/24/2015 No longer Active ketorolac 60 mg/2 mL intramuscular solution RxNorm: 070195 Milliliter 08/27/2015 No longer Active promethazine 25 mg/mL injection solution RxNorm: 215790 Milliliter 08/27/2015 No longer Active ceftriaxone 500 mg solution for injection RxNorm: 2521826 08/10/2015 No longer Active Kenalog 40 mg/mL suspension for injection RxNorm: 1180586 Milliliter 08/10/2015 No longer Active ceftriaxone 500 mg solution for injection RxNorm: 7864913 1Milliliter 07/28/2015 No longer Active Kenalog 40 mg/mL suspension for injection RxNorm: 8133593 Milliliter 03/19/2015 No longer Active ceftriaxone 500 mg solution for injection RxNorm: 823579 06/23/2014 No longer Active Kenalog 40 mg/mL suspension for injection RxNorm: 6801073 Milliliter 06/23/2014 No longer Active Rocephin 500 mg solution for injection RxNorm: 708808 1mlMilliliter 09/24/2013 No longer Active Rocephin 500 mg solution for injection RxNorm: 417723 1Milliliter 09/19/2013 No longer Active Kenalog 40 mg/mL suspension for injection RxNorm: 6225947 1Milliliter 07/10/2013 No longer Active Rocephin 500 mg solution for injection RxNorm: 398466 1 07/10/2013 No longer Active Kenalog 40 mg/mL Susp for Injection RxNorm: 9721366 1Milliliter 09/24/2012 No longer Active Rocephin 500 mg Solution for Injection RxNorm: 325715 02/15/2012 No longer Active Influenza Virus Vaccine [...] Item Item Code Result Date Comp Metabolic Emb375 NA 141 mEq/L 09/12/2017 Comp Metabolic Gei506 K 4.1 mEq/L 09/12/2017 Comp Metabolic Qqo108 CL 105 mEq/L 09/12/2017 Comp Metabolic Eus509 CO2 30.0 mEq/L 09/12/2017 Comp Metabolic Vjr717 ANION GAP 10 09/12/2017 Comp Metabolic Ued850 GLUCOSE 97 mg/dL 09/12/2017 Comp Metabolic Hvy215 Creat 0.7 mg/dL 09/12/2017 Comp Metabolic Ewk003 eGFR 91 ml/min/1.73m2 09/12/2017 Comp Metabolic Lpy968 BUN 18 mg/dL 09/12/2017 Comp Metabolic Nux014 B/C Ratio 26.5 Ratio 09/12/2017 Comp Metabolic Eru912 CALCIUM 9.7 mg/dL 09/12/2017 Comp Metabolic Lfx849 ALK PHOS 60 U/L 09/12/2017 Comp Metabolic Meh741 AST(SGOT) 22 U/L 09/12/2017 Comp Metabolic Kam506 ALT(SGPT) 23 U/L 09/12/2017 Comp Metabolic Kej610 BILI T 0.4 mg/dL 09/12/2017 Comp Metabolic Nwl939 ALBUMIN 3.8 g/dL 09/12/2017 Comp Metabolic Xra633 TPRO 6.4 g/dL 09/12/2017 Comp Metabolic Gxn596 GLOB 2.6 g/dL 09/12/2017 Comp Metabolic Dfi967 A/G Ratio 1.5 Ratio 09/12/2017 Comp Metabolic Nkv745 Osmo 283 mOsmo 09/12/2017 Cbc With Differential [...] 30.7 pg 09/12/2017 Cbc With Differential Ord2 [place]% 7.2 % 09/12/2017 Cbc With Differential Ord2 Eos% 3.9 % 09/12/2017 Cbc With Differential Ord2 MCHC 32.2 pg 09/12/2017 Cbc With Differential Ord2 PLT 232 K/ul 09/12/2017 Cbc With Differential Ord2 Baso% 0.8 % 09/12/2017 Cbc With Differential Ord2 RDW 13.2 % 09/12/2017 Cbc With Differential Ord2 Neut ABS# 4.50 K/ul 09/12/2017 Cbc With Differential Ord2 Lymph ABS# 2.46 K/ul 09/12/2017 Cbc With Differential Ord2 [place] ABS# 0.6 K/ul 09/12/2017 Cbc With Differential [...] 96.5 fl 11/07/2016 Cbc With Differential Ord2 [place]% 6.1 % 11/07/2016 Cbc With Differential Ord2 [...] 2.48 K/ul 11/07/2016 Cbc With Differential Ord2 [place] ABS# 0.6 K/ul 11/07/2016 Cbc With Differential Ord2 Eos ABS# 0.3 K/ul 11/07/2016 Cbc With Differential Ord2 Baso ABS# 0.1 K/ul 11/07/2016 Comp Metabolic Ghb134 NA 139 mEq/L 11/07/2016 Comp Metabolic Otr351 K 3.8 mEq/L 11/07/2016 Comp Metabolic Uub446 CL 106 mEq/L 11/07/2016 Comp Metabolic Xju098 CO2 25.0 mEq/L 11/07/2016 Comp Metabolic Viq228 ANION GAP 12 11/07/2016 Comp Metabolic Sqc424 GLUCOSE 98 mg/dL 11/07/2016 Comp Metabolic Gbd850 Creat 0.8 mg/dL 11/07/2016 Comp Metabolic Nwv180 eGFR 71 ml/min/1.73m2 11/07/2016 Comp Metabolic Toh551 BUN 36 mg/dL 11/07/2016 Comp Metabolic Dlv132 B/C Ratio 42.9 Ratio 11/07/2016 Comp Metabolic Yqp913 CALCIUM 9.9 mg/dL 11/07/2016 Comp Metabolic Xzw536 ALK PHOS 57 U/L 11/07/2016 Comp Metabolic May117 AST(SGOT) 24 U/L 11/07/2016 Comp Metabolic Lqi343 ALT(SGPT) 28 U/L 11/07/2016 Comp Metabolic Fir247 BILI T 0.4 mg/dL 11/07/2016 Comp Metabolic Rse302 ALBUMIN 4.2 g/dL 11/07/2016 Comp Metabolic Bdg022 TPRO 7.0 g/dL 11/07/2016 Comp Metabolic Uhe839 GLOB 2.8 g/dL 11/07/2016 Comp Metabolic Ebh422 A/G Ratio 1.5 Ratio 11/07/2016 Comp Metabolic Ubr134 Osmo 286 mOsmo 11/07/2016 Free T4 Mdd906 FREE T4 0.75 ng/dL 11/07/2016 Tsh Ord6 hTSH II 3.46 uIU/mL 11/07/2016 Lipid Ord30 CHOL 169 mg/dL 05/10/2016 Lipid Ord30 HDL 50.0 mg/dl 05/10/2016 Lipid Ord30 TRIG 161 mg/dL 05/10/2016 Lipid Ord30 LDL 87 mg/dL 05/10/2016 Lipid Ord30 C/HDL 3.4 Ratio 05/10/2016 Comp Metabolic Vle185 NA 138 mEq/L 05/10/2016 Comp Metabolic Uce927 K 3.8 mEq/L 05/10/2016 Comp Metabolic Xmb183 CL 102 mEq/L 05/10/2016 Comp Metabolic Psu287 CO2 29.0 mEq/L 05/10/2016 Comp Metabolic Gzq899 ANION GAP 11 05/10/2016 Comp Metabolic Ecs705 GLUCOSE 107 mg/dL 05/10/2016 Comp Metabolic Zmy538 Creat 0.7 mg/dL 05/10/2016 Comp Metabolic Eqx582 eGFR 93 ml/min/1.73m2 05/10/2016 Comp Metabolic Yqr839 BUN 18 mg/dL 05/10/2016 Comp Metabolic Exe827 B/C Ratio 26.9 Ratio 05/10/2016 Comp Metabolic Fjy355 CALCIUM 9.8 mg/dL 05/10/2016 Comp Metabolic Ugo142 ALK PHOS 60 U/L 05/10/2016 Comp Metabolic Tfg822 AST(SGOT) 21 U/L 05/10/2016 Comp Metabolic Eeu307 ALT(SGPT) 23 U/L 05/10/2016 Comp Metabolic Oli537 BILI T 0.5 mg/dL 05/10/2016 Comp Metabolic Ygz348 ALBUMIN 4.1 g/dL 05/10/2016 Comp Metabolic Hlm962 TPRO 6.7 g/dL 05/10/2016 Comp Metabolic Bnq214 GLOB 2.7 g/dL 05/10/2016 Comp Metabolic Ktx422 A/G Ratio 1.5 Ratio 05/10/2016 Comp Metabolic Dew353 Osmo 278 mOsmo 05/10/2016 Comp Metabolic Dig955 NA 137 mEq/L 06/12/2015 Comp Metabolic Anz423 K 3.8 mEq/L 06/12/2015 Comp Metabolic Zlv737 CL 104 mEq/L 06/12/2015 Comp Metabolic Qpm951 CO2 24.0 mEq/L 06/12/2015 Comp Metabolic Mwy065 ANION GAP 13 06/12/2015 Comp Metabolic Tqe874 GLUCOSE 92 mg/dL 06/12/2015 Comp Metabolic Lso742 Creat 0.7 mg/dL 06/12/2015 Comp Metabolic Tpm405 eGFR 87 ml/min/1.73m2 06/12/2015 Comp Metabolic Sus087 BUN 31 mg/dL 06/12/2015 Comp Metabolic Lga458 B/C Ratio 43.7 Ratio 06/12/2015 Comp Metabolic Qlc587 CALCIUM 10.0 mg/dL 06/12/2015 Comp Metabolic Kfk814 ALK PHOS 58 U/L 06/12/2015 Comp Metabolic Idp353 AST(SGOT) 32 U/L 06/12/2015 Comp Metabolic Vig920 ALT(SGPT) 33 U/L 06/12/2015 Comp Metabolic Hrp962 BILI T 0.5 mg/dL 06/12/2015 Comp Metabolic Nck234 ALBUMIN 4.1 g/dL 06/12/2015 Comp Metabolic Cmp247 TPRO 6.6 g/dL 06/12/2015 Comp Metabolic Edp052 GLOB 2.5 g/dL 06/12/2015 Comp Metabolic Hfv139 A/G Ratio 1.6 Ratio 06/12/2015 Comp Metabolic Hlw629 Osmo 280 mOsmo 06/12/2015 Cbc With Differential [...] With Differential Ord2 RDW 14.2 % 06/12/2015 A1C HPLC 6088981 A1C HPLC 37643-6 5.6 % 04/30/2013 FREE T4 5410023 FREE T4 0.84 NG/DL 04/30/2013 CHEM 14 1352275 AST 22 U/L 04/30/2013 CHEM 14 5438449 ALT 22 IU/L 04/30/2013 CHEM 14 7508174 BUN 24 MG/DL 04/30/2013 CHEM 14 2593966 ALBUMIN 4.2 GM/DL 04/30/2013 CHEM 14 7248108 CHLORIDE 107 MMOL/L 04/30/2013 CHEM 14 7532409 BILI TOT 0.3 MG/DL 04/30/2013 CHEM 14 5796123 ALK PHOS 88 U/L 04/30/2013 CHEM 14 9435607 SODIUM 141 MMOL/L 04/30/2013 CHEM 14 5750976 CREATININE 0.60 MG/DL 04/30/2013 CHEM 14 2807866 CALCIUM 9.9 MG/DL 04/30/2013 CHEM 14 6939631 POTASSIUM 3.7 MMOL/L 04/30/2013 CHEM 14 1182047 PROT TOT 6.6 GM/DL 04/30/2013 CHEM 14 9494383 GLUCOSE 123 MG/DL 04/30/2013 CHEM 14 8210045 BICARB 25 MMOL/L 04/30/2013 CHEM 14 3593460 ANION GAP 9 MEQ/L 04/30/2013 LIPID GRP HDL TEST 46 MG/DL 04/30/2013 LIPID GRP TRIG 148 MG/DL 04/30/2013 LIPID GRP TEST LDL 75 MG/DL 04/30/2013 LIPID GRP CHOL 151 MG/DL 04/30/2013 LIPID GRP RCHOL/HDL 3.28 RATIO 04/30/2013 CBC 0920254 WBC 8.7 10e9/L 04/30/2013 CBC 2175962 RBC 4.63 10e12/L 04/30/2013 CBC 2024752 HGB 14.1 g/dL 04/30/2013 CBC 6401521 HCT DET 42.2 % 04/30/2013 CBC 5204671 MCV 91.1 fL 04/30/2013 CBC 3695104 MCH 30.5 pg 04/30/2013 CBC 2921731 MCHC 33.4 g/dL 04/30/2013 CBC 9042300 PLT 248 10e9/L 04/30/2013 CBC 1950829 MPV 12.1 fL 04/30/2013 CBC 5985890 LARA % 59.0 % 04/30/2013 CBC 4562596 LY % 27.6 % 04/30/2013 CBC 8653415 MON % 8.0 % 04/30/2013 CBC 7456167 EOS % 4.8 % 04/30/2013 CBC 2118453 BASO % 0.6 % 04/30/2013 CBC 3175058 RDW 13.3 % 04/30/2013 CBC 4221111 ABS LARA 5.13 10e9/L 04/30/2013 CBC 8383068 ABS LYMPH 2.40 10e9/L 04/30/2013 CBC 2536720 ABS MONO 0.70 10e9/L 04/30/2013 CBC 3373850 ABS EOS 0.42 10e9/L 04/30/2013 CBC 0431473 ABS BASO 0.05 10e9/L 04/30/2013 CBC 7176106 RDW-SD 43.1 fL 04/30/2013 TSH 5701440 TSH 4.339 uIU/ML 04/30/2013 GFR CALC 7646335 GFR AA >60 ML/MIN 04/30/2013 GFR CALC 2006311 GFR NON-AA >60 ML/MIN 04/30/2013 CBC 4112967 WBC 8.4 10e9/L 11/29/2012 CBC 2144325 RBC 4.77 10e12/L 11/29/2012 CBC 7370457 HGB 14.9 g/dL 11/29/2012 CBC 0697248 HCT DET 44.2 % 11/29/2012 CBC 6874774 MCV 92.7 fL 11/29/2012 CBC 7614627 MCH 31.2 pg 11/29/2012 CBC 6123792 MCHC 33.7 g/dL 11/29/2012 CBC 7943778 PLT 253 10e9/L 11/29/2012 CBC 2609833 MPV 11.8 fL 11/29/2012 CBC 1483994 LARA % 54.9 % 11/29/2012 CBC 9117548 LY % 29.0 % 11/29/2012 CBC 7339459 MON % 10.4 % 11/29/2012 CBC 7390254 EOS % 5.1 % 11/29/2012 CBC 8900997 BASO % 0.6 % 11/29/2012 CBC 9426370 RDW 13.8 % 11/29/2012 CBC 3932529 ABS LARA 4.61 10e9/L 11/29/2012 CBC 0509634 ABS LYMPH 2.44 10e9/L 11/29/2012 CBC 6839046 ABS MONO 0.87 10e9/L 11/29/2012 CBC 9452303 ABS EOS 0.43 10e9/L 11/29/2012 CBC 6733299 ABS BASO 0.05 10e9/L 11/29/2012 CBC 8815734 RDW-SD 45.9 fL 11/29/2012 A1C HPLC 0911504 A1C HPLC 51392-2 5.5 % 11/29/2012 TSH 9675389 TSH 3.341 uIU/ML 11/29/2012 CHEM 14 8167612 AST 25 U/L 11/29/2012 CHEM 14 7157482 ALT 26 IU/L 11/29/2012 CHEM 14 6976782 BUN 25 MG/DL 11/29/2012 CHEM 14 6224495 ALBUMIN 4.4 GM/DL 11/29/2012 CHEM 14 9078766 CHLORIDE 106 MMOL/L 11/29/2012 CHEM 14 8860322 BILI TOT 0.4 MG/DL 11/29/2012 CHEM 14 7431252 ALK PHOS 86 U/L 11/29/2012 CHEM 14 1167093 SODIUM 141 MMOL/L 11/29/2012 CHEM 14 6865478 CREATININE 0.80 MG/DL 11/29/2012 CHEM 14 2491133 CALCIUM 9.7 MG/DL 11/29/2012 CHEM 14 4048109 POTASSIUM 4.0 MMOL/L 11/29/2012 CHEM 14 6698337 PROT TOT 6.6 GM/DL 11/29/2012 CHEM 14 8491271 GLUCOSE 112 MG/DL 11/29/2012 CHEM 14 8350273 BICARB 29 MMOL/L 11/29/2012 CHEM 14 8375259 ANION GAP 6 MEQ/L 11/29/2012 LIPID GRP HDL TEST 54 MG/DL 11/29/2012 LIPID GRP TRIG 77 MG/DL 11/29/2012 LIPID GRP TEST LDL 78 MG/DL 11/29/2012 LIPID GRP CHOL 147 MG/DL 11/29/2012 LIPID GRP RCHOL/HDL 2.72 RATIO 11/29/2012 FREE T4 2395928 FREE T4 1.23 NG/DL 11/29/2012 GFR CALC 7245460 GFR AA >60 ML/MIN 11/29/2012 GFR CALC 6066811 GFR NON-AA >60 ML/MIN 11/29/2012 CHEM 14 4059921 AST 23 U/L 08/07/2012 CHEM 14 5020585 ALT 34 IU/L 08/07/2012 CHEM 14 5651508 BUN 26 MG/DL 08/07/2012 CHEM 14 5622835 ALBUMIN 4.4 GM/DL 08/07/2012 CHEM 14 3080034 CHLORIDE 105 MMOL/L 08/07/2012 CHEM 14 5953272 BILI TOT 0.5 MG/DL 08/07/2012 CHEM 14 9306990 ALK PHOS 79 U/L 08/07/2012 CHEM 14 2433673 SODIUM 140 MMOL/L 08/07/2012 CHEM 14 9176665 CREATININE 0.71 MG/DL 08/07/2012 CHEM 14 2175362 CALCIUM 10.4 MG/DL 08/07/2012 CHEM 14 4682314 POTASSIUM 3.8 MMOL/L 08/07/2012 CHEM 14 4521829 PROT TOT 6.8 GM/DL 08/07/2012 CHEM 14 7882103 GLUCOSE 104 MG/DL 08/07/2012 CHEM 14 8431502 BICARB 27 MMOL/L 08/07/2012 CHEM 14 4231386 ANION GAP 8 MEQ/L 08/07/2012 TSH 0150706 TSH 7.419 uIU/ML 08/07/2012 GFR CALC 9933086 GFR AA >60 ML/MIN 08/07/2012 GFR CALC 6796852 GFR NON-AA >60 ML/MIN 08/07/2012 CBC 6776911 WBC 8.7 10e9/L 08/07/2012 CBC 3661713 RBC 4.67 10e12/L 08/07/2012 CBC 3589899 HGB 14.4 g/dL 08/07/2012 CBC 3042707 HCT DET 42.8 % 08/07/2012 CBC 7291828 MCV 91.6 fL 08/07/2012 CBC 8882646 MCH 30.8 pg 08/07/2012 CBC 4930697 MCHC 33.6 g/dL 08/07/2012 CBC 7223779 PLT 271 10e9/L 08/07/2012 CBC 6607997 MPV 12.3 fL 08/07/2012 CBC 8215652 LARA % 50.6 % 08/07/2012 CBC 6043235 LY % 34.9 % 08/07/2012 CBC 6543341 MON % 9.1 % 08/07/2012 CBC 6657533 EOS % 5.1 % 08/07/2012 CBC 8499404 BASO % 0.3 % 08/07/2012 CBC 7918915 RDW 13.6 % 08/07/2012 CBC 7883700 ABS LARA 4.40 10e9/L 08/07/2012 CBC 4169450 ABS LYMPH 3.04 10e9/L 08/07/2012 CBC 3777929 ABS MONO 0.79 10e9/L 08/07/2012 CBC 3998448 ABS EOS 0.44 10e9/L 08/07/2012 CBC 8603239 ABS BASO 0.03 10e9/L 08/07/2012 CBC 4388034 RDW-SD 44.1 fL 08/07/2012 LIPID GRP HDL TEST 50 MG/DL 08/07/2012 LIPID GRP TRIG 127 MG/DL 08/07/2012 LIPID GRP TEST LDL 93 MG/DL 08/07/2012 LIPID GRP CHOL 168 MG/DL 08/07/2012 LIPID GRP RCHOL/HDL 3.36 RATIO 08/07/2012 FREE T4 8117530 FREE T4 1.11 NG/DL 08/07/2012 A1C HPLC 5418520 A1C HPLC 80093-1 5.4 % 08/07/2012 A1C HPLC 5028533 A1C HPLC 02328-8 5.3 % 02/21/2012 TSH 4730178 TSH 0.832 uIU/ML 02/16/2012 GFR CALC 5336516 GFR AA >60 ML/MIN 02/16/2012 GFR CALC 5632484 GFR NON-AA >60 ML/MIN 02/16/2012 CBC 0877587 WBC 7.1 10e9/L 02/16/2012 CBC 2659783 RBC 4.47 10e12/L 02/16/2012 CBC 7302891 HGB 13.5 g/dL 02/16/2012 CBC 6031251 HCT DET 40.7 % 02/16/2012 CBC 1674878 MCV 91.1 fL 02/16/2012 CBC 7146525 MCH 30.2 pg 02/16/2012 CBC 4414618 MCHC 33.2 g/dL 02/16/2012 CBC 6173062 PLT 238 10e9/L 02/16/2012 CBC 8539693 MPV 11.4 fL 02/16/2012 CBC 4697956 LARA % 55.7 % 02/16/2012 CBC 9884386 LY % 29.6 % 02/16/2012 CBC 0677114 MON % 9.2 % 02/16/2012 CBC 4181410 EOS % 5.1 % 02/16/2012 CBC 6396491 BASO % 0.4 % 02/16/2012 CBC 1306197 RDW 13.0 % 02/16/2012 CBC 8851496 ABS LARA 3.95 10e9/L 02/16/2012 CBC 6706654 ABS LYMPH 2.10 10e9/L 02/16/2012 CBC 1041931 ABS MONO 0.65 10e9/L 02/16/2012 CBC 9880432 ABS EOS 0.36 10e9/L 02/16/2012 CBC 2425517 ABS BASO 0.03 10e9/L 02/16/2012 CBC 1874083 RDW-SD 42.4 fL 02/16/2012 BMP 2216569 GLUCOSE 112 MG/DL 02/16/2012 BMP 8103031 CREATININE 0.65 MG/DL 02/16/2012 BMP 4997690 BUN 17 MG/DL 02/16/2012 BMP 8428962 SODIUM 144 MMOL/L 02/16/2012 BMP 7483285 POTASSIUM 4.0 MMOL/L 02/16/2012 BMP 6933451 CHLORIDE 107 MMOL/L 02/16/2012 BMP 3776938 BICARB 29 MMOL/L 02/16/2012 BMP 1766978 ANION GAP 8 MEQ/L 02/16/2012 BMP 2134605 CALCIUM 9.5 MG/DL 02/16/2012 FREE T4 8413003 FREE T4 1.04 NG/DL 02/16/2012 URINALYSIS NONAUTO W/O SCOPE 92908 Specific [place] 1.015 DateTime(Free Text in Aprima) URINALYSIS NONAUTO W/O SCOPE 83885 PH 7 DateTime(Free Text in Aprima) URINALYSIS NONAUTO W/O SCOPE 10328 GLUCOSE neg DateTime(Free Text in Aprima) URINALYSIS NONAUTO W/O SCOPE 41238 Protein 1+ DateTime(Free Text in Apr[employer]) URINALYSIS NONAUTO W/O SCOPE 50927 Blood neg DateTime(Free Text in Apr[employer]) URINALYSIS NONAUTO W/O SCOPE 41562 Bilirubin neg DateTime(Free Text in Apr[employer]) URINALYSIS NONAUTO W/O SCOPE 67727 Ketones neg DateTime(Free Text in Apr[employer]) URINALYSIS NONAUTO W/O SCOPE 69503 Urobilinogen neg DateTime(Free Text in Apr[employer]) URINALYSIS NONAUTO W/O SCOPE 94910 Nitrite postive DateTime(Free Text in Aprima) URINALYSIS NONAUTO W/O SCOPE 06805 Leukocytes 3+ DateTime(Free Text in Aprima) URINALYSIS NONAUTO W/O SCOPE 17698 Specific [place] 1.030 DateTime(Free Text in Aprima) URINALYSIS NONAUTO W/O SCOPE 85423 PH 6 DateTime(Free Text in Aprima) URINALYSIS NONAUTO W/O SCOPE 28959 GLUCOSE neg DateTime(Free Text in Aprima) URINALYSIS NONAUTO W/O SCOPE 48226 Protein neg DateTime(Free Text in Aprima) URINALYSIS NONAUTO W/O SCOPE 42129 Blood neg DateTime(Free Text in Aprima) URINALYSIS NONAUTO W/O SCOPE 12975 Bilirubin neg DateTime(Free Text in Aprima) URINALYSIS NONAUTO W/O SCOPE 68776 Ketones neg DateTime(Free Text in Aprima) URINALYSIS NONAUTO W/O SCOPE 21017 Urobilinogen neg DateTime(Free Text in Aprima) URINALYSIS NONAUTO W/O SCOPE 99096 Nitrite neg DateTime(Free Text in Aprima) URINALYSIS NONAUTO W/O SCOPE 22669 Leukocytes trace DateTime(Free Text in Aprima) URINALYSIS NONAUTO W/O SCOPE 56935 Specific [place] 1.005 DateTime(Free Text in Aprima) URINALYSIS NONAUTO W/O SCOPE 64572 PH 5 DateTime(Free Text in Aprima) URINALYSIS NONAUTO W/O SCOPE 57168 GLUCOSE neg DateTime(Free Text in Aprima) URINALYSIS NONAUTO W/O SCOPE 93219 Protein neg DateTime(Free Text in Aprima) URINALYSIS NONAUTO W/O SCOPE 58780 Blood neg DateTime(Free Text in Aprima) URINALYSIS NONAUTO W/O SCOPE 46444 Bilirubin neg DateTime(Free Text in Aprima) URINALYSIS NONAUTO W/O SCOPE 82797 Ketones neg DateTime(Free Text in Aprima) URINALYSIS NONAUTO W/O SCOPE 82858 Urobilinogen neg DateTime(Free Text in Aprima) URINALYSIS NONAUTO W/O SCOPE 38514 Nitrite neg DateTime(Free Text in Aprima) URINALYSIS NONAUTO W/O SCOPE 35185 Leukocytes neg DateTime(Free Text in Aprima) UA 48280 Specific [place] 1.030 DateTime(Free Text in ) UA 87665 PH 5 DateTime(Free Text in Aprima) UA 04957 GLUCOSE neg DateTime(Free Text in Aprima) UA 17171 Protein trace DateTime(Free Text in Apr) UA 70817 Blood large DateTime(Free Text in Apr) UA 22036 Bilirubin neg DateTime(Free Text in Apr) UA 31898 Ketones neg DateTime(Free Text in Aprima) UA 85959 Urobilinogen neg DateTime(Free Text in Apr) UA 91515 Nitrite neg DateTime(Free Text in ) UA 80314 Leukocytes large DateTime(Free Text in ) Review [...] contact 09/24/2013 None Full Exam - General 1995 Musculoskeletal digits and nails Nails: [email or web address] 09/24/2013 [...] lesions 02/15/2012 None Full Exam - General 1995 Neurologic mental status Overall: alert 02/15/2012 None [...] Codes Date URINALYSIS NONAUTO W/O SCOPE CPT-4: 82475 07/10/2018 TRIAMCINOLONE ACET INJ NOS CPT-4: J3301 05/28/2018 ROCEPHIN, PER 250 MG CPT- 4: J0696 05/28/2018 ROCEPHIN, PER 250 MG CPT- 4: J0696 01/19/2018 TRIAMCINOLONE ACET INJ NOS CPT-4: J3301 01/19/2018 PPPS, SUBSEQ VISIT CPT- 4: G0439 11/23/2017 TRIAMCINOLONE ACET INJ NOS CPT-4: J3301 06/27/2017 THER/PROPH/DIAG INJ SC/IM CPT-4: 32348 04/20/2017 TRIAMCINOLONE ACET INJ NOS CPT-4: J3301 04/20/2017 TRIAMCINOLONE ACET INJ NOS CPT-4: J3301 03/14/2017 ROCEPHIN, PER 250 MG CPT- 4: J0696 03/14/2017 DESTRUCT PREMALG LESION CPT-4: 88025 12/05/2016 DESTRUCT PREMALG LES 2-14 CPT-4: 01374 12/05/2016 URINALYSIS NONAUTO W/O SCOPE CPT-4: 46310 11/28/2016 ROCEPHIN, PER 250 MG CPT- 4: J0696 11/28/2016 PPPS, SUBSEQ VISIT CPT- 4: G0439 11/07/2016 THER/PROPH/DIAG INJ SC/IM CPT-4: 38467 11/07/2016 TRIAMCINOLONE ACET INJ NOS CPT-4: J3301 11/07/2016 ROCEPHIN, PER 250 MG CPT- 4: J0696 11/07/2016 THER/PROPH/DIAG INJ SC/IM CPT-4: 83996 08/15/2016 TRIAMCINOLONE ACET INJ NOS CPT-4: J3301 08/15/2016 ROCEPHIN, PER 250 MG CPT- 4: J0696 08/15/2016 URINALYSIS NONAUTO W/O SCOPE CPT-4: 41665 05/05/2016 ROCEPHIN, PER 250 MG CPT- 4: J0696 12/07/2015 TRIAMCINOLONE ACET INJ NOS CPT-4: J3301 11/24/2015 ROCEPHIN, PER 250 MG CPT- 4: J0696 11/24/2015 THER/PROPH/DIAG INJ SC/IM CPT-4: 70982 11/24/2015 THER/PROPH/DIAG INJ SC/IM CPT-4: 04018 08/27/2015 KETOROLAC TROMETHAMINE INJ CPT-4: J1885 08/27/2015 PROMETHAZINE HCL INJECTION CPT-4: J2550 08/27/2015 THER/PROPH/DIAG INJ SC/IM CPT-4: 50623 08/10/2015 TRIAMCINOLONE ACET INJ NOS CPT-4: J3301 08/10/2015 ROCEPHIN, PER 250 MG CPT- 4: J0696 08/10/2015 C WOUN RTS (CULTURE OTHR SPECIMN AEROBIC) CPT-4: 24866 07/28/2015 THER/PROPH/DIAG INJ SC/IM CPT-4: 57108 03/19/2015 TRIAMCINOLONE ACET INJ NOS CPT-4: J3301 03/19/2015 ROCEPHIN, PER 250 MG CPT- 4: J0696 06/23/2014 TRIAMCINOLONE ACET INJ NOS CPT-4: J3301 06/23/2014 INJ TRIGGER POINT 1/2 MUSCL CPT-4: 32611 06/05/2014 URINALYSIS NONAUTO W/O SCOPE CPT-4: 47501 02/11/2014 URINALYSIS NONAUTO W/O SCOPE CPT-4: 61041 10/15/2013 ROCEPHIN, PER 250 MG CPT- 4: J0696 09/24/2013 THER/PROPH/DIAG INJ SC/IM CPT-4: 94052 09/19/2013 ROCEPHIN, PER 250 MG CPT- 4: J0696 09/19/2013 PRESCRIP TRANSMIT VIA ERX SY CPT-4: G8553 08/05/2013 ROCEPHIN, PER 250 MG CPT- 4: J0696 07/10/2013 THER/PROPH/DIAG INJ SC/IM CPT-4: 18899 07/10/2013 TRIAMCINOLONE ACET INJ NOS CPT-4: J3301 07/10/2013 PRESCRIP TRANSMIT VIA ERX SY CPT-4: G8553 07/10/2013 50696 EST. PATIENT, LEVEL III CPT-4: 21102 06/03/2013 PRESCRIP TRANSMIT VIA ERX SY CPT-4: G8553 06/03/2013 PRESCRIP TRANSMIT VIA ERX SY CPT-4: G8553 05/07/2013 ROUTINE VENIPUNCTURE CPT- 4: 55328 04/30/2013 ROUTINE VENIPUNCTURE CPT- 4: 18698 11/29/2012 TRIAMCINOLONE ACET INJ NOS CPT-4: J3301 09/24/2012 THER/PROPH/DIAG INJ SC/IM CPT-4: 05359 09/24/2012 URINALYSIS NONAUTO W/O SCOPE CPT-4: 51035 09/24/2012 PRESCRIP TRANSMIT VIA ERX SY CPT-4: G8553 09/24/2012 PRESCRIP TRANSMIT VIA ERX SY CPT-4: G8553 09/10/2012 PRESCRIP TRANSMIT VIA ERX SY CPT-4: G8553 08/08/2012 ROUTINE VENIPUNCTURE CPT- 4: 67117 08/07/2012 ROUTINE VENIPUNCTURE CPT- 4: 33057 02/16/2012 URINALYSIS NONAUTO W/O SCOPE CPT-4: 84897 02/15/2012 ROCEPHIN, PER 250 MG CPT- 4: J0696 02/15/2012 PRESCRIP TRANSMIT VIA ERX SY CPT-4: G8553 02/15/2012 ROUTINE VENIPUNCTURE CPT- 4: 48679 11/08/2011 ROCEPHIN, PER 250 MG CPT- 4: J0696 07/14/2011 THER/PROPH/DIAG INJ SC/IM CPT-4: 21089 07/14/2011 Influenza Virus Vaccine, Split Virus, >3 Yrs, IM CPT-4: 96647 05/23/2011 IMMUNIZATION ADMIN CPT- 4: 56858 05/23/2011 THER/PROPH/DIAG INJ SC/IM CPT-4: 19226 05/03/2011 ROCEPHIN, PER 250 MG CPT- 4: J0696 05/03/2011 TRIAMCINOLONE ACET INJ NOS CPT-4: J3301 05/03/2011 Vital Signs Date Vital 07/16/2018 Blood Pressure 1: 142/80 Code: 8480-6 BMI: 31.1 Code: 16051-0 Heart Rate 1: 78 bpm Height: 4'11" SpO2: 98% Weight: 154 lbs 07/10/2018 Blood Pressure 1: 156/82 Code: 8480-6 BMI: 31.1 Code: 11647-0 Heart Rate 1: 63 bpm Height: 4'11" SpO2: 99% Weight: 154 lbs 05/28/2018 Blood Pressure 1: 142/80 Code: 8480-6 Heart Rate 1: 82 bpm Height: SpO2: 97% Temperature: 35.9 (C) / 96.6 (F) Weight: 02/07/2018 Height: Weight: 01/19/2018 Blood Pressure 1: 128/76 Code: 8480-6 BMI: 31.2 Code: 24065-9 Heart Rate 1: 71 bpm Height: 4'11" SpO2: 96% Temperature: 36.5 (C) / 97.7 (F) Weight: 154 lbs 8 oz 11/23/2017 Blood Pressure 1: 146/80 Code: 8480-6 BMI: 31.7 Code: 25848-3 Heart Rate 1: 64 bpm Height: 4'11" SpO2: 97% Waist Measure (cm): 89 cm Weight: 157 lbs 09/12/2017 Blood Pressure 1: 140/86 Code: 8480-6 Heart Rate 1: 62 bpm SpO2: 96% Temperature: 36.6 (C) / 97.8 (F) Weight: 153 lbs 07/25/2017 Blood Pressure 1: 140/72 Code: 8480-6 BMI: 31.3 Code: 09475-5 Heart Rate 1: 76 bpm Height: 4'11" SpO2: 97% Temperature: 37.2 (C) / 99.0 (F) Weight: 155 lbs 06/27/2017 Blood Pressure 1: 144/84 Code: 8480-6 BMI: 31.1 Code: 75899-0 Heart Rate 1: 63 bpm Height: 4'11" SpO2: 99% Temperature: 36.4 (C) / 97.6 (F) Weight: 154 lbs 05/08/2017 Blood Pressure 1: 142/86 Code: 8480-6 BMI: 30.9 Code: 41792-0 Height: 4'11" Temperature: 36.3 (C) / 97.4 (F) Weight: 153 lbs 03/14/2017 Blood Pressure 1: 146/82 Code: 8480-6 BMI: 30.9 Code: 57348-8 Heart Rate 1: 64 bpm Height: 4'11" SpO2: 94% Weight: 153 lbs 02/20/2017 Blood Pressure 1: 142/80 Code: 8480-6 BMI: 30.9 Code: 51446-2 Heart Rate 1: 75 bpm Height: 4'11" SpO2: 97% Weight: 153 lbs 02/06/2017 Blood Pressure 1: 138/90 Code: 8480-6 BMI: 31.5 Code: 16122-6 Heart Rate 1: 61 bpm Height: 4'11" SpO2: 98% Weight: 156 lbs 12/05/2016 Blood Pressure 1: 122/72 Code: 8480-6 Heart Rate 1: 59 bpm Height: 4'11" SpO2: 98% Weight: 11/28/2016 Blood Pressure 1: 154/86 Code: 8480-6 BMI: 31.3 Code: 17669-4 Heart Rate 1: 64 bpm Height: 4'11" SpO2: 94% Temperature: 36.2 (C) / 97.2 (F) Weight: 155 lbs 11/07/2016 Blood Pressure 1: 128/64 Code: 8480-6 BMI: 31.5 Code: 04769-9 Heart Rate 1: 59 bpm Height: 4'11" SpO2: 97% Weight: 156 lbs 08/15/2016 Blood Pressure 1: 110/62 Code: 8480-6 BMI: 31.5 Code: 26172-8 Heart Rate 1: 76 bpm Height: 4'11" SpO2: 97% Weight: 156 lbs 06/07/2016 Blood Pressure 1: 120/80 Code: 8480-6 BMI: 32.9 Code: 55624-8 Heart Rate 1: 63 bpm Height: 4'11" SpO2: 93% Temperature: 36.5 (C) / 97.7 (F) Weight: 163 lbs 03/15/2016 Blood Pressure 1: 90/42 Code: 8480-6 Heart Rate 1: 65 bpm SpO2: 94% 03/14/2016 Blood Pressure 1: 188/110 Code: 8480-6 Heart Rate 1: 68 bpm SpO2: 96% 02/22/2016 Blood Pressure 1: 158/80 Code: 8480-6 BMI: 32.7 Code: 10790-4 Heart Rate 1: 71 bpm Height: 4'11" SpO2: 95% Weight: 162 lbs 12/07/2015 Blood Pressure 1: 140/88 Code: 8480-6 BMI: 32.9 Code: 54109-3 Heart Rate 1: 99 bpm Height: 4'11" SpO2: 94% Temperature: 35.9 (C) / 96.6 (F) Weight: 163 lbs 11/24/2015 Blood Pressure 1: 144/78 Code: 8480-6 BMI: 33.7 Code: 77679-9 Heart Rate 1: 60 bpm Height: 4'11" SpO2: 98% Temperature: 36.6 (C) / 97.9 (F) Weight: 167 lbs 08/27/2015 Blood Pressure 1: 164/82 Code: 8480-6 BMI: 32.3 Code: 99492-9 Heart Rate 1: 60 bpm Height: 4'11" SpO2: 93% Weight: 160 lbs 08/10/2015 Blood Pressure 1: 130/60 Code: 8480-6 BMI: 32.5 Code: 34044-2 Heart Rate 1: 64 bpm Height: 4'11" SpO2: 97% Weight: 161 lbs 07/28/2015 Blood Pressure 1: 124/68 Code: 8480-6 BMI: 32.5 Code: 95065-6 Heart Rate 1: 69 bpm Height: 4'11" SpO2: 97% Weight: 161 lbs 06/11/2015 Blood Pressure 1: 148/80 Code: 8480-6 BMI: 32.9 Code: 59074-3 Heart Rate 1: 70 bpm Height: 4'11" SpO2: 94% Weight: 163 lbs 03/19/2015 Blood Pressure 1: 150/102 Code: 8480-6 Blood Pressure 2: 152/92 Code: 8480-6 BMI: 32.5 Code: 77678-0 Heart Rate 1: 71 bpm Height: 4'11" SpO2: 96% Weight: 161 lbs 01/07/2015 Blood Pressure 1: 126/84 Code: 8480-6 Heart Rate 1: 80 bpm Height: 4'11" 09/23/2014 Blood Pressure 1: 112/72 Code: 8480-6 BMI: 33.9 Code: 52173-0 Heart Rate 1: 72 bpm Height: 4'11" Weight: 168 lbs 08/05/2014 Blood Pressure 1: 140/86 Code: 8480-6 BMI: 33.3 Code: 24969-1 Height: 4'11" Weight: 165 lbs 06/23/2014 Blood Pressure 1: 132/70 Code: 8480-6 BMI: 32.9 Code: 22564-2 Heart Rate 1: 58 bpm Height: 4'11" Temperature: 36.0 (C) / 96.8 (F) Weight: 163 lbs 06/05/2014 Blood Pressure 1: 121/85 Code: 8480-6 BMI: 34.3 Code: 41217-5 Height: 4'11" Weight: 170 lbs 04/03/2014 Blood Pressure 1: 128/80 Code: 8480-6 Heart Rate 1: 88 bpm Weight: 167 lbs 03/07/2014 Blood Pressure 1: 122/82 Code: 8480-6 BMI: 33.9 Code: 77825-6 Heart Rate 1: 68 bpm Height: 4'11" Weight: 168 lbs 11/21/2013 Blood Pressure 1: 100/58 Code: 8480-6 BMI: 33.7 Code: 33212-5 Heart Rate 1: 64 bpm Height: 4'11" Weight: 167 lbs 09/24/2013 Blood Pressure 1: 148/88 Code: 8480-6 Heart Rate 1: 68 bpm Weight: 09/19/2013 Blood Pressure 1: 120/80 Code: 8480-6 BMI: 33.9 Code: 36075-6 Heart Rate 1: 80 bpm Height: 4'11" Temperature: 36.9 (C) / 98.5 (F) Weight: 168 lbs 08/05/2013 Blood Pressure 1: 128/80 Code: 8480-6 BMI: 34.3 Code: 10759-9 Heart Rate 1: 64 bpm Height: 4'11" Temperature: 36.2 (C) / 97.2 (F) Weight: 170 lbs 07/10/2013 Blood Pressure 1: 120/84 Code: 8480-6 BMI: 36.0 Code: 17942-4 Heart Rate 1: 90 bpm Height: 4'11" SpO2: 97% Temperature: 36.8 (C) / 98.2 (F) Weight: 178 lbs 06/03/2013 Blood Pressure 1: 136/94 Code: 8480-6 BMI: 34.7 Code: 64617-5 Heart Rate 1: 68 bpm Height: 4'11" Temperature: 36.7 (C) / 98.0 (F) Weight: 172 lbs 05/13/2013 Blood Pressure 1: 132/90 Code: 8480-6 Heart Rate 1: 68 bpm 05/07/2013 Blood Pressure 1: 168/100 Code: 8480-6 BMI: 34.3 Code: 59003-9 Heart Rate 1: 76 bpm Height: 4'11" Weight: 170 lbs 12/03/2012 Blood Pressure 1: 142/78 Code: 8480-6 BMI: 33.5 Code: 97776-6 Heart Rate 1: 76 bpm Height: 4'11" Weight: 166 lbs 09/24/2012 Blood Pressure 1: 116/70 Code: 8480-6 Heart Rate 1: 68 bpm Respiratory Rate: 16 bpm Temperature: 36.9 (C) / 98.4 (F) Weight: 162 lbs 09/10/2012 Blood Pressure 1: 116/80 Code: 8480-6 BMI: 33.7 Code: 33168-0 Heart Rate 1: 76 bpm Height: 4'11" [...] 1: 149/85 Code: 8480-6 BMI: 32.9 Code: 37199-4 Heart Rate 1: 79 bpm Height: 4'11" Weight: 164 lbs 05/03/2011 Blood Pressure 1: 122/79 Code: 8480-6 BMI: 30.8 Code: 22190-3 Heart Rate 1: 72 bpm Height: 5'1" Weight: 163 lbs 04/25/2011 Blood Pressure 1: 137/84 Code: 8480-6 BMI: 31.0 Code: 41928-3 Heart Rate 1: 63 bpm Height: 5'1" [...] surg in december. then took trip to [facility] to see mother and has [...] Quality chronic 08/01/2011 states went shopping on [employer] over night without taking any of medications [...] Generalized anxiety disorder[ICD10: F41.1] Isabelle Goldman MD, [facility] CPT-4: 69801 07/16/2018 ([id number]) 40300 EST. PATIENT, LEVEL III Diagnosis: Acute recurrent maxillary sinusitis[ICD10: J01.01] Diagnosis: Frequency of micturition[ICD10: R35.0] Diagnosis: Low back pain[ICD10: M54.5] Shahida Goldman MD, [facility] CPT-4: 28867 07/10/2018 ([id number]) 91969 EST. PATIENT, LEVEL III Diagnosis: Acute recurrent maxillary sinusitis[ICD10: J01.01] Shahida Goldman MD, [facility] CPT-4: 18988 05/28/2018 ([id number]) Miscellaneous no charge Diagnosis: Laceration without foreign body, left lower leg, subsequent encounter[ICD10: S81.812D] Diagnosis: Laceration without foreign body, right lower leg, subsequent encounter[ICD10: S81.811D] Isabelle Goldman MD, [facility] CPT-4: 48710 02/08/2018 64806 EST. PATIENT, LEVEL III Diagnosis: Cellulitis of left lower limb[ICD10: L03.116] Diagnosis: Cellulitis of right lower limb[ICD10: L03.115] Diagnosis: Laceration without foreign body, left lower leg, initial encounter[ICD10: S81.812A] Diagnosis: Laceration without foreign body, right lower leg, initial encounter[ICD10: S81.811A] Isabelle Goldman MD, [facility] CPT-4: 47550 02/07/2018 ([id number]) 84646 EST. PATIENT, LEVEL IV Diagnosis: Primary generalized (osteo)arthritis[ICD10: M15.0] Diagnosis: Acute recurrent maxillary sinusitis[ICD10: J01.01] Diagnosis: Low back pain[ICD10: M54.5] Diagnosis: Other allergic rhinitis[ICD10: J30.89] Diagnosis: Obstructive sleep apnea (adult) (pediatric)[ICD10: G47.33] Shahida Goldman MD, [facility] CPT-4: 40901 01/19/2018 59198 EST. PATIENT, LEVEL IV Diagnosis: Diarrhea, unspecified[ICD10: R19.7] Diagnosis: Generalized abdominal pain[ICD10: R10.84] Diagnosis: Other allergic rhinitis[ICD10: J30.89] Diagnosis: Other acute sinusitis[ICD10: J01.80] Isabelle Goldman MD, [facility] CPT- 4: 07786 09/12/2017 98855 EST. PATIENT, LEVEL III Diagnosis: Acute laryngopharyngitis[ICD10: J06.0] Diagnosis: Other allergic rhinitis[ICD10: J30.89] Diagnosis: Cough[ICD10: R05] Diagnosis: Wheezing[ICD10: R06.2] Isabelle Goldman MD, [facility] CPT-4: 15605 07/25/2017 ([id number]) 94528 EST. PATIENT, LEVEL IV Diagnosis: Acute recurrent maxillary sinusitis[ICD10: J01.01] Diagnosis: Cervicalgia[ICD10: M54.2] Diagnosis: Diarrhea, unspecified[ICD10: R19.7] Shahida Goldman MD, [facility] CPT-4: 66259 06/27/2017 ([id number]) 00712 EST. PATIENT, LEVEL III Diagnosis: Chronic maxillary sinusitis[ICD10: J32.0] Diagnosis: Gastro-esophageal reflux disease without esophagitis[ICD10: K21.9] Shahida Goldmna MD, [facility] CPT-4: 60500 05/08/2017 ([id number]) 25364 EST. PATIENT, LEVEL III Diagnosis: Acute recurrent maxillary sinusitis[ICD10: J01.01] Shahida Goldman MD, [facility] CPT-4: 98376 03/14/2017 69652 EST. PATIENT, LEVEL IV Diagnosis: Epigastric pain[ICD10: R10.13] Diagnosis: Left upper quadrant pain[ICD10: R10.12] Diagnosis: Left lower quadrant pain[ICD10: R10.32] Isabelle Goldman MD, [facility] CPT-4: 12893 02/20/2017 ([id number]) 48524 EST. PATIENT, LEVEL IV Diagnosis: Generalized anxiety disorder[ICD10: F41.1] Diagnosis: Major depressive disorder, recurrent, moderate[ICD10: F33.1] Diagnosis: Left upper quadrant pain[ICD10: R10.12] Diagnosis: Epigastric pain[ICD10: R10.13] Diagnosis: Actinic keratosis[ICD10: L57.0] Melba Goldman MD, [facility] CPT-4: 95202 02/06/2017 ([id number]) 26743 EST. PATIENT, LEVEL III Diagnosis: Actinic keratosis[ICD10: L57.0] Diagnosis: Major depressive disorder, recurrent, moderate[ICD10: F33.1] Melba Goldman MD, [facility] CPT-4: 08407 12/05/2016 ([id number]) 98477 EST. PATIENT, LEVEL III Diagnosis: Acute recurrent maxillary sinusitis[ICD10: J01.01] Diagnosis: Dysuria[ICD10: R30.0] Shahida Goldman MD, [facility] CPT-4: 55611 11/28/2016 68500 EST. PATIENT, LEVEL IV Diagnosis: Other acute sinusitis[ICD10: J01.80] Diagnosis: Acute laryngopharyngitis[ICD10: J06.0] Diagnosis: Other allergic rhinitis[ICD10: J30.89] Isabelle Goldman MD, [facility] CPT- 4: 69636 08/15/2016 ([id number]) 64961 EST. PATIENT, LEVEL III Diagnosis: Acute recurrent maxillary sinusitis[ICD10: J01.01] Diagnosis: Low back pain[ICD10: M54.5] Shahida Goldman MD, [facility] CPT-4: 79857 06/07/2016 ([id number]) Miscellaneous no charge Diagnosis: Essential (primary) hypertension[ICD10: I10] Shahida Goldman MD, [facility] CPT-4: 11494 03/15/2016 59392 EST. PATIENT, LEVEL IV Diagnosis: Essential (primary) hypertension[ICD10: I10] Diagnosis: Headache[ICD10: R51] Diagnosis: Generalized anxiety disorder[ICD10: F41.1] Shahida Goldman MD, [facility] CPT-4: 17915 03/14/2016 46587 EST. PATIENT, LEVEL III Diagnosis: Laceration without foreign body, left lower leg, initial encounter[ICD10: S81.812A] Isabelle Goldman MD, [facility] CPT-4: 22607 02/22/2016 ([id number]) 12569 EST. PATIENT, LEVEL III Diagnosis: Acute recurrent maxillary sinusitis[ICD10: J01.01] Diagnosis: Cough[ICD10: R05] Diagnosis: Allergic rhinitis due to pollen[ICD10: J30.1] Shahida Goldman MD, [facility] CPT-4: 97376 12/07/2015 ([id number]) 70270 EST. PATIENT, LEVEL IV Diagnosis: Essential (primary) hypertension[ICD10: I10] Diagnosis: Acute recurrent maxillary sinusitis[ICD10: J01.01] Diagnosis: Generalized anxiety disorder[ICD10: F41.1] Diagnosis: Cervicalgia[ICD10: M54.2] Diagnosis: Generalized intra-abdominal and pelvic swelling, mass and lump[ICD10: R19.07] Melba Goldman MD, [facility] CPT-4: 54369 11/24/2015 89130 EST. PATIENT, LEVEL III Diagnosis: Other migraine, intractable, without status migrainosus[ICD10: G43.819] Isabelle Goldman MD, [facility] CPT-4: 55932 08/27/2015 94888 EST. PATIENT, LEVEL III Diagnosis: Acute recurrent maxillary sinusitis[ICD10: J01.01] Diagnosis: Candidal stomatitis[ICD10: B37.0] Diagnosis: Acute laryngopharyngitis[ICD10: J06.0] Isabelle Goldman MD, [facility] CPT- 4: 01673 08/10/2015 00191 EST. PATIENT, LEVEL III Diagnosis: Superficial foreign body of left hand, initial encounter[ICD10: S60.552A] Melba Goldman MD, [facility] CPT-4: 64862 07/28/2015 ([id number]) 51484 EST. PATIENT, LEVEL III Diagnosis: Essential (primary) hypertension[ICD10: I10] Diagnosis: Tinea cruris[ICD10: B35.6] Diagnosis: Abnormal levels of other serum enzymes[ICD10: R74.8] Shahida Goldman MD, [facility] CPT-4: 81282 06/11/2015 ([id number]) 71889 EST. PATIENT, LEVEL IV Diagnosis: ESSENTIAL HYPERTENSION[ICD9: 401.9] Diagnosis: Hypothyroid[ICD9: 244.9] Diagnosis: ALLERGIC RHINITIS[ICD9: 477.9] Diagnosis: Anxiety[ICD9: 300.00] Diagnosis: Sleep apnea[ICD9: 780.57] Shahida Goldman MD, [facility] CPT-4: 56530 03/19/2015 ([id number]) 72019 EST. PATIENT, LEVEL III Diagnosis: ACUTE SINUSITIS[ICD9: 461.9] Celi Margot Goldman MD, [facility] CPT-4: 76861 01/07/2015 ([id number]) 67015 EST. PATIENT, LEVEL III Diagnosis: Conjunctivitis[ICD9: 372.30] Shahida Goldman MD, [facility] CPT-4: 32292 09/23/2014 03754 EST. PATIENT, LEVEL II Diagnosis: Noninfected skin tear of leg[ICD9: 891.0] Shahida Goldman MD, [facility] CPT-4: 76642 08/05/2014 ([id number]) 45584 EST. PATIENT, LEVEL III Diagnosis: Chronic maxillary sinusitis[ICD9: 473.0] Shahida Goldman MD, [facility] CPT-4: 61728 06/23/2014 06948 EST. PATIENT, LEVEL II Diagnosis: Headache[ICD9: 784.0] Shahida Goldman MD, [facility] CPT-4: 41663 06/05/2014 ([id number]) 98457 EST. PATIENT, LEVEL III Diagnosis: Abrasion of right leg[ICD9: 916.0] Diagnosis: Headache[ICD9: 784.0] Diagnosis: ALLERGIC RHINITIS[ICD9: 477.9] Shahida Goldman MD, [facility] CPT-4: 48760 04/03/2014 51228 EST. PATIENT, LEVEL II Diagnosis: Tinea corporis[ICD9: 110.5] Diagnosis: Exposure to scabies[ICD9: V01.89] Shahida Goldman MD, [facility] CPT- 4: 98599 03/07/2014 ([id number]) 38623 EST. PATIENT, LEVEL III Diagnosis: ESSENTIAL HYPERTENSION[SNOMED: 30271021] Diagnosis: OSTEOARTH NOS-UNSPEC[ICD9: 715.90] Diagnosis: Lumbago[ICD9: 724.2] Diagnosis: Cervicalgia[ICD9: 723.1] Shahida Goldman MD, [facility] CPT-4: 02111 11/21/2013 ([id number]) 94945 EST. PATIENT, LEVEL III Diagnosis: DEPRESSIVE DISORDER NEC[ICD9: 311] Diagnosis: Paronychia[ICD9: 681.9] Melba Goldman MD, [facility] CPT-4: 07460 09/24/2013 ([id number]) 43729 EST. PATIENT, LEVEL III Diagnosis: Paronychia[ICD9: 681.9] Diagnosis: Cellulitis[ICD9: 682.9] Melba Goldman MD, [facility] CPT-4: 96832 09/19/2013 ([id number]) 78474 EST. PATIENT, LEVEL III Diagnosis: Conjunctivitis[ICD9: 372.30] Diagnosis: Thrush[ICD9: 112.0] Shahida Goldman MD, [facility] CPT-4: 98594 08/05/2013 ([id number]) 72405 EST. PATIENT, LEVEL III Diagnosis: ACUTE MAXILLARY SINUSITIS[ICD9: 461.0] Diagnosis: COUGH[ICD9: 786.2] Diagnosis: Insomnia[ICD9: 780.52] Diagnosis: ESOPHAGEAL REFLUX[ICD9: 530.81] Melba Goldman MD, [facility] CPT-4: 77809 07/10/2013 ([id number]) Miscellaneous no charge Diagnosis: ESSENTIAL HYPERTENSION[SNOMED: 22548151] Melba Goldman MD, [facility] CPT-4: 62976 05/13/2013 ([id number]) 43130 EST. PATIENT, LEVEL IV Diagnosis: ESSENTIAL HYPERTENSION[SNOMED: 29911989] Diagnosis: HYPOTHYROIDISM[ICD9: 244.9] Diagnosis: OSTEOARTH NOS-UNSPEC[ICD9: 715.90] Melba Goldman MD, [facility] CPT- 4: 59030 05/07/2013 ([id number]) 72256 EST. PATIENT, LEVEL IV Diagnosis: Osteoarthritis[ICD9: 715.90] Diagnosis: Knee pain, bilateral[ICD9: 719.46] Diagnosis: Hip pain[ICD9: 719.45] Melba Goldman MD [facility] CPT-4: 80459 12/03/2012 ([id number]) 92953 EST. PATIENT, LEVEL III Diagnosis: Thrush[ICD9: 112.0] Melba Goldman MD [facility] CPT-4: 49682 09/24/2012 ([id number]) 70197 EST. PATIENT, LEVEL IV Diagnosis: ESSENTIAL HYPERTENSION[SNOMED: 56553497] Diagnosis: Thrush[ICD9: 112.0] Diagnosis: Sleep apnea[ICD9: 780.57] Melba Goldman MD [facility] CPT-4: 66839 09/10/2012 ([id number]) 00951 EST. PATIENT, LEVEL IV Diagnosis: Esophageal reflux[ICD9: 530.81] Diagnosis: Hypothyroid[ICD9: 244.9] Diagnosis: JOINT PAIN-MULT JOINTS[ICD9: 719.49] Diagnosis: ALLERGIC RHINITIS[ICD9: 477.9] Melba Goldman MD [facility] CPT-4: 64652 08/08/2012 ([id number]) 45283 EST. PATIENT, LEVEL IV Diagnosis: Urinary frequency[ICD9: 788.41] Diagnosis: EDEMA[ICD9: 782.3] Diagnosis: HYPOTHYROIDISM[ICD9: 244.9] Diagnosis: Fatigue[ICD9: 780.79] Melba Goldman MD [facility] CPT-4: 97632 02/15/2012 ([id number]) 15134 EST. PATIENT, LEVEL IV Diagnosis: Abdominal pain[ICD9: 789.00] Diagnosis: Fatigue[ICD9: 780.79] Diagnosis: Nausea[ICD9: 787.02] Melba Goldman MD [facility] CPT-4: 73760 11/10/2011 72610 EST. PATIENT, LEVEL IV Diagnosis: ESSENTIAL HYPERTENSION[SNOMED: 68719772] Diagnosis: DIARRHEA[ICD9: 787.91] Diagnosis: DEPRESSIVE DISORDER NEC[ICD9: 311] Diagnosis: Irritable bowel disease[ICD9: 564.1] Melba Goldman MD, [facility] CPT- 4: 50667 08/01/2011 57057 EST. PATIENT, LEVEL III Diagnosis: ACUTE SINUSITIS[ICD9: 461.9] Diagnosis: Cough[ICD9: 786.2] Shahida Goldman MD, [facility] CPT-4: 74390 07/14/2011 96674 EST. PATIENT, LEVEL IV Diagnosis: VACCIN FOR INFLUENZA[ICD9: V04.81] Diagnosis: ESSENTIAL HYPERTENSION[SNOMED: 89168335] Diagnosis: GENERALIZED ANXIETY DISEASE[ICD9: 300.02] Diagnosis: SLEEP DISTURBANCES[ICD9: 780.50] Shahida Goldman MD, [facility] CPT- 4: 28409 05/23/2011 93771 EST. PATIENT, LEVEL III Diagnosis: ACUTE SINUSITIS[ICD9: 461.9] Diagnosis: ALLERGIC RHINITIS[ICD9: 477.9] Diagnosis: Cough[ICD9: 786.2] Shahida Goldman MD, [facility] CPT-4: 31400 05/03/2011 80562 EST. PATIENT, LEVEL IV Diagnosis: ESSENTIAL HYPERTENSION[SNOMED: 48413786] Diagnosis: DEPRESSIVE DISORDER NEC[ICD9: 311] Diagnosis: Fatigue[ICD9: 780.79] Shahida Goldman MD, [facility] CPT-4: 26098 04/25/2011 Plan of Care Planned Activity Notes Codes Status Date Appointment: Isabelle Orozco WPtel: [address] [place], [place] [phone] (15 min) Moderate 07/30/2018 Visit Plan: Anxiety [...] concerns. 07/16/2018 Appointment: Isabelle Orozco WPtel: [facility]5 [facility] (15 min) Moderate 07/16/2018 Patient Education: Patient [...] over-medication. 07/10/2018 Appointment: Shahida Manzo WPtel: [facility]5 [id number] (15 min) Moderate 07/10/2018 Patient Education: Patient Medication Summary Completed 07/10/2018 Patient Education: Back Pain Completed 07/10/2018 Visit Plan: Sinusitis - Pt has acute infection - pain in face, maxillary region, Pt informed to use decongestant, RX given to patient, sinus rinses also recommended. Call if symptoms do not show improvement. 05/28/2018 Appointment: Shahida Manzo WPtel: [facility]5 [id number] (30 min) Complex 05/28/2018 Patient Education: Patient [...] concerns. 02/07/2018 Appointment: Isabelle Orozco WPtel: [phone] [...] less fatigue 01/19/2018 Appointment: Shahida Manzo WPtel: [phone] [id number] (15 min) Moderate 01/19/2018 Patient Education: Patient [...] surrogate. 11/23/2017 Appointment: [phone] [facility] - Annual Wellness Visit 11/23/2017 Patient [...] improvement. 09/12/2017 Appointment: Isabelle Orozco WPtel: [facility] (15 min) Moderate 09/12/2017 Patient Education: Patient [...] spray. 07/25/2017 Appointment: Isabelle Orozco WPtel: [facility]5 [facility] (30 min) Complex 07/25/2017 Patient Education: Patient [...] are available 06/27/2017 Appointment: Shahida Manzo WPtel: [facility]9 [id number] (15 min) Moderate 06/27/2017 Patient Education: Patient [...] improving. 05/08/2017 Appointment: Shahida Manzo WPtel: [facility]9 [facility] [place] [address] (15 min) Moderate 05/08/2017 Patient Education: Patient [...] show improvement. 03/14/2017 Appointment: Shahida Manzo WPtel: [address] [place], [place] [phone] (15 min) Moderate 03/14/2017 Patient Education: Patient Medication Summary Completed 03/14/2017 Appointment: Shahida Manzo WPtel: [facility]1 [id number] (15 min) Moderate 02/21/2017 Visit Plan: Abdominal [...] not improving. 02/20/2017 Appointment: Isabelle Orozco WPtel: [facility]6 [id number] (30 min) Complex 02/20/2017 Patient Education: [...] use 02/06/2017 Appointment: Melba Goldman WPtel: [phone] [facility] (15 min) Moderate 02/06/2017 Patient Education: [...] patient. 12/05/2016 [facility]ment[phone] [facility] 12/05/2016 Patient Education: Patient Medication Summary Completed 12/05/2016 Visit Plan: Sinusitis - Pt has acute infection - pain in face, maxillary region, Pt informed to use decongestant, RX given to patient, sinus rinses also recommended. Call if symptoms do not show improvement. Dysuria- culture urine 11/28/2016 Appointment: Shahida Manzo [facility]Ptel[phone] (15 min) Moderate 11/28/2016 Patient Education: [...] of control. 11/07/2016 Appointment: Isabelle Orozco WPtel: [address] [place], [place] [phone] [facility] - Annual Wellness Visit 11/07/2016 Patient [...] spray. 08/15/2016 Appointment: Isabelle Orozco WPtel: [facility]5 [facility] (15 min) Moderate 08/15/2016 Patient Education: Patient [...] pain use. 06/07/2016 Appointment: Shahida Manzo WPtel: [address] [place], [place] [phone] (10 min) Simple 06/07/2016 Patient Education: Patient [...] today 03/14/2016 Appointment: Shahida Manzo [facility]Ptel[phone] (15 min) Moderate 03/14/2016 Patient Education: Patient Medication Summary Completed 03/14/2016 Care Plan: COMPLETE CBC AUTOMATED LOINC : 50732-5 Pending 03/14/2016 Visit Plan: Cellulitis - The patient was instructed in appropriate wound care. The patient was instructed to use the antibiotic ointment as per RX. The patient is to call for any change in symptoms, increase in size of the lesion, increase in pain. 02/22/2016 Appointment: Isabelle Orozco WPtel: [phone] [...] pt to follow up with specialist at [address] - she needs to pursue treatment. Anxietly - medications unchanged. colonoscopy with dr. dai 11/24/2015 Appointment: Melba Goldman WPtel: [address] [place] [address] (30 min) [facility] 11/24/2015 Patient Education: Patient Medication Summary Completed 11/24/2015 Patient Education: Obesity Completed 11/24/2015 Patient Education: Hypertension Completed 11/24/2015 Patient Education: .Cervicalgia Neck Pain Completed 11/24/2015 Care Plan: Referral Order SNOMED-CT : [id number] Ordered 11/24/2015 Visit Plan: Acute Migraine - [...] to monitor 06/11/2015 Appointment: Shahida Manzo WPtel: [address] [place] [phone] (15 min) Moderate 06/11/2015 Patient Education: Patient [...] OFFICE Sleep apnea-patient needs new CPAP-will contact [facility] Pt reports that she uses [...] OFFICE Sleep apnea-patient needs new CPAP-will contact [facility] [place] patient 03/19/2015 Visit Plan: Hypertension - elevated [...] OFFICE Sleep apnea-patient needs new CPAP-will contact [facility] Pt reports that she uses [...] areas dry Exposure to scabies-RX sent to [facility]. 03/07/2014 Appointment: Melba Goldman WPtel: [...] change in blood pressure readings at home. Sgbrbkf-yqtjnvmnodq-wakeupcj duragesic patch-appt with Dr Ortiz for pain management 11/21/2013 Appointment: Shahida Manzo WPtel: [address] [place], [place] [phone] Follow up 11/21/2013 Patient Education: Patient Medication Summary Completed 11/21/2013 Patient Education: Hypertension Completed 11/21/2013 Patient Education: .Cervicalgia Neck Pain Completed 11/21/2013 Appointment: Melba Goldman WPtel: [address] [place], [place] [phone] Other 11/19/2013 Appointment: Melba Goldman WPtel: [address] [place], [place] [phone] Follow up 11/06/2013 Appointment: Melba Goldman WPtel: [address] [place], [place] [phone] Lab Draw 10/15/2013 Patient Education: Patient Medication [...] BEDTIME 09/24/2013 Appointment: Shahida Manzo WPtel: [facility]5 [id number] Other 09/24/2013 Patient Education: Patient Medication Summary Completed 09/24/2013 Visit Plan: Paronychia/Cellulitis - continue with oral antibiotics as previously directed, return to clinic as previously directed, call for acute change in symptoms, worsening redness, warmth, discharge. 09/19/2013 Appointment: Melba Goldman WPtel: [address] [place], [place] [phone] Other 09/19/2013 Patient Education: Patient Medication Summary Completed 09/19/2013 Visit Plan: Conjunctivitis - rx for eye drops/lube sent electronically to the patient's pharmacy. The patient has been instructed to cleanse affected eye with warm washcloth, then place medication into affected eye four times daily. Thrush-refill nystatin-call if symptoms do not resolve 08/05/2013 Appointment: Shahida Manzo WPtel: [phone] [id number] [facility] 08/05/2013 Patient Education: Patient Medication Summary [...] improvement. 06/03/2013 Appointment: Melba Goldman WPtel: [phone] [facility] Follow up 06/03/2013 Patient Education: Patient Medication Summary Completed 06/03/2013 Patient Education: Hypertension Completed 06/03/2013 Appointment: Melba Goldman WPtel: [facility]5 [facility] Nurse Visit 05/13/2013 Patient Education: Patient [...] of control. 05/07/2013 Appointment: Mel[facility] Goldman WPtel[facility] [facility] 05/07/2013 Patient Education: Patient Medication Summary Completed 05/07/2013 Patient Education: Hypertension Completed 05/07/2013 Patient Education: Patient Medication Summary Completed 04/30/2013 Patient Education: Hypertension Completed 04/30/2013 Visit Plan: Arthritis- occasionally uncontrolled symptoms- recommend pt to take antiinflammatory as directed for pain control. Use tylenol for break through pain symptoms. 12/03/2012 Appointment: [phone] [facility] [facility] 12/03/2012 Patient Education: Patient [...] resolve 09/24/2012 Appointment: [facility]el[phone] [place] [address] 09/24/2012 Patient Education: Patient Medication Summary Completed [...] diflucan 09/10/2012 Appointment: [phone] [facility] 09/10/2012 Patient Education: Patient [...] pain symptoms. 08/08/2012 Appointment: Shahida Manzo WPtel: [address] [place] [address] Follow up 08/08/2012 Patient Education: Patient Medication Summary Completed 08/08/2012 Patient Education: Patient Medication Summary Completed 08/07/2012 Patient Education: Hypertension Completed 08/07/2012 Appointment: Melba Goldman WPtel: [address] [place] [address] Lab Draw 02/16/2012 Patient Education: Patient Medication [...] Needs labs. 02/15/2012 Appointment: Melba Goldman WPtel: [address] [place], [place] [id number] [place] Other 02/15/2012 Patient Education: Patient Medication Summary Completed 02/15/2012 Visit Plan: Abdominal pain - ultrasound tomorrow AM nothing to eat before the ultrasound from 11pm tonight bland diet. Nausea - worse with fatty foods, recommended low fat/bland diet, call if symptoms worsening. 11/10/2011 Appointment: Melba Goldman WPtel: [facility] [place] Other 11/10/2011 Patient Education: Patient Medication Summary [...] [facility] Goldman [facility]el[phone] [facility] [place] Other 08/01/2011 Patient Education: Patient Medication Summary Completed 08/01/2011 Patient Education: High Blood Pressure: Essential Hypertension Completed 08/01/2011 Visit Plan: Sinusitis - Pt has acute infection - pain in face, maxillary region, Pt informed to use decongestant, RX given to patient, sinus rinses also recommended. Call if symptoms do not show improvement. Cough- tessalon parminder 07/14/2011 Appointment: Shahida Man[facility]el[phone] Other 07/14/2011 Patient Education: Patient Medication [...] the office. 05/23/2011 Appointment: Shahida Manzo WPtel: [address] [place] [address] Other 05/23/2011 Patient Education: Patient Medication Summary [...] cough med 05/03/2011 Appointment: Shahida Manzo WPtel: [address] [place], [place] [id number] Other 05/03/2011 Patient Education: Patient Medication Summary [...] imrpove her symptoms. 04/25/2011 Appointment: Shahida Manzo WPte: [address] [place], [place] [address] Other 04/25/2011 Patient Education: Patient Medication Summary [...] OFFICE Sleep apnea-patient needs new CPAP-will contact [facility] patient Pt reports that she uses her CPAP and feels like she gets benefit from use of her CPAP with improved energy. . Paronychia-continue abx as previously prescribed. ROCEPHIN [...] patient. ADD ABILIFY 2MG AT BEDTIME . Paronychia/Cellulitis - continue with oral antibiotics [...] months based on previous levels of control. trintellix - 10mg one pill daily in [...] areas dry Exposure [facility]. . Skin tear of left and right [...] OFFICE Sleep apnea-patient needs new CPAP-will contact [facility] patient TAPER OFF OF CYMBALTA-TAKE EVERY [...] OFFICE Sleep apnea-patient needs new CPAP-will contact [facility] [place] patient Pt reports that she uses her [...] Use tylenol for break through pain symptoms. Gentamicin nasal spray to [facility] Increase prilosec to twice daily [...] drainage, or any other acute concerns. . Cellulitis - The patient was instructed in appropriate wound care. The patient was instructed to use the antibiotic ointment as per RX. The patient is to call for any change in symptoms, increase in size of the lesion, increase in pain. . Acute Migraine - pt has chronic migraine headaches, but comes into clinic today complaining of intractable migraine headache symptoms. I have recommended changes to the chronic symptoms management and the pt has been given the following acute treatment in clinic today: . Skin tears, Cellulitis - The patient [...] drainage, or any other acute concerns. . UTI - pt with positive urinalysis [...] her fatigue. Needs labs. . Hypertension - well controlled - continue [...] mask fitted lindsay. Thrush- treating with diflucan rocephin/kenalog . Sinusitis - Pt has acute infection - pain in face, maxillary region, Pt informed to use decongestant, RX given to patient, sinus rinses also recommended. Call if symptoms do not show improvement. . Anxiety - the patient has uncontrolled [...] is to call for acute concerns. . Sinusitis - Pt has acute infection [...] not improve, or if any worse. . Conjunctivitis - rx for eye drops/lube sent electronically to the patient's pharmacy. The patient has been instructed to cleanse affected eye with warm washcloth, then place medication into affected eye four times daily. . Pt complains of a splinter in [...] prescription sent to pharmacy per pt request. Do not start the diflucan until you [...] if symptoms do not show improvement. . HTN-improved today-no change in medications Tinea-start clotrimazole and diflucan Elevated ALT-check labs today to monitor . Hypertension - well controlled - continue with current medications, continue with no added salt diet. Pt has been encouraged to exercise daily. The pt has been advised to call the office if there are any acute concerns about change in blood pressure readings at home. Jnfgsdz-epxptgsfebm-vnrwxgrf duragesic patch-appt with Dr Ortiz for pain [...] based on previous levels of control. . Pt complains of a splinter in [...] symptoms do not show improvement. Dysuria-culture urine TRAZODONE REPLACES THE AMBIEN - START WITH [...]
--- OUTSIDE RECORDS SUMMARY | 2019-03-08 17:33 | XMS REPORT | CCD ---
Author Author [facility] Address [address] [place] [address] Phone Care Team Providers Care Motor Tester Name Role Phone PP Unavailable CCM Unavailable Summary Purpose Interface Exchange Insurance Providers Payer name Policy type / Coverage type Covered green party ID Effective Begin Date Effective End Date [employer] Medicare Part B [id number] Unknown Family history Son Diagnosis Age At Onset Crohn's disease Unknown Brother Diagnosis Age At Onset Cardiovascular disease Unknown Mother Diagnosis Age At Onset Hypertension Unknown Father Diagnosis Age At Onset Cardiovascular disease Unknown Social History Social History Element Codes Description Effective Dates Marital status Unknown 04/22/2011 Number of children Unknown 3 1 son -Crohns 04/22/[address]: 357558531 Nonsmoker 04/22/2011 Allergies, Adverse Reactions, Alerts Substance [...] Date Stop Date Status Fill Instructions Bystolic 5 mg tablet RxNorm: 371229 1 Tablet(s) PO daily to take with 10 mg daily to equal 15mg daily 07/17/2018 No Stop Date Active alprazolam 0.25 mg tablet RxNorm: 258333 1 Tablet(s) PO TID as needed 07/16/2018 10/13/2018 Active hydrocodone 10 mg-acetaminophen 325 mg tablet RxNorm: 882458 Tablet(s) PO TAKE ONE TO TWO TABLETS BY MOUTH EVERY 6 HOURS NEEDED FOR PAIN 07/10/2018 07/24/2018 Active prednisone 20 mg tablet RxNorm: 608750 1 Tablet(s) PO BID 07/10/2018 07/14/2018 Inactive Phenergan with Codeine Syrup RxNorm: 5-10 Milliliter(s) PO Q6 PRN 06/28/2018 No Stop Date Active prednisone 20 mg tablet RxNorm: 286645 2 Tablet(s) PO daily 05/31/2018 06/04/2018 Inactive prednisone 20 mg tablet RxNorm: 370504 2 Tablet(s) PO daily 05/31/2018 05/30/2018 Inactive ceftriaxone 500 mg solution for injection RxNorm: 1530567 Inj 05/28/2018 05/28/2018 Inactive doxycycline hyclate 100 mg tablet RxNorm: 2579888 1 Tablet(s) PO BID 05/28/2018 06/06/2018 Inactive Kenalog 40 mg/mL suspension for injection RxNorm: 5517524 Milliliter(s) Inj 05/28/2018 05/28/2018 Inactive hydrocodone 10 mg-acetaminophen 325 mg tablet RxNorm: 980029 Tablet(s) PO TAKE ONE TO TWO TABLETS BY MOUTH EVERY 6 HOURS NEEDED FOR PAIN 05/09/2018 05/23/2018 Inactive alprazolam 0.25 mg tablet RxNorm: 067529 1 Tablet(s) PO daily as needed 04/25/2018 07/15/2018 Inactive Bystolic 10 mg tablet RxNorm: 393482 TAKE ONE TABLET BY MOUTH DAILY 04/16/2018 09/12/2018 Active hydrocodone 10 mg-acetaminophen 325 mg tablet RxNorm: 051462 Tablet(s) PO TAKE ONE TO TWO TABLETS BY MOUTH EVERY 6 HOURS NEEDED FOR PAIN 03/06/2018 03/20/2018 Inactive trazodone 50 mg tablet RxNorm: 332146 TAKE ONE AND ONE-HALF (1 1/2) TABLET BY MOUTH AT BEDTIME. MAY INCREASE TO 2 TABLETS AT BEDTIME NEEDED 02/23/2018 06/12/2018 Inactive mupirocin 2 % topical ointment RxNorm: 636129 1 TOP BID 02/09/2018 05/27/2018 Inactive Zofran 4 mg tablet RxNorm: 258243 1 Tablet(s) PO TID as needed 02/08/2018 No Stop Date Active Keflex 500 mg capsule RxNorm: 644902 1 Capsule(s) PO TID 02/07/2018 02/13/2018 Inactive alprazolam 0.25 mg tablet RxNorm: 072865 1 Tablet(s) PO daily as needed 01/24/2018 07/09/2018 Inactive piroxicam 20 mg capsule RxNorm: 481392 1 Capsule(s) PO daily 01/19/2018 07/17/2018 Inactive D/C ORDER FOR HCTZ hydrocodone 10 mg-acetaminophen 325 mg tablet RxNorm: 646573 Tablet(s) PO TAKE ONE TO TWO TABLETS BY MOUTH EVERY 6 HOURS NEEDED FOR PAIN 01/19/2018 02/02/2018 Inactive hydrochlorothiazide 25 mg tablet RxNorm: 846324 Tablet(s) TAKE ONE TABLET BY MOUTH DAILY 01/19/2018 01/19/2018 Inactive Kenalog 40 mg/mL suspension for injection RxNorm: 6204236 1 Milliliter(s) Inj 01/19/2018 01/19/2018 Inactive ceftriaxone 500 mg solution for injection RxNorm: 7808951 500 Milligram(s) Inj 01/19/2018 01/19/2018 Inactive Nexium 40 mg capsule,delayed release RxNorm: 801538 TAKE ONE CAPSULE BY MOUTH TWICE A DAY 01/18/2018 04/17/2018 Inactive Nexium 40 mg capsule,delayed release RxNorm: 263403 TAKE ONE CAPSULE BY MOUTH TWICE A DAY 01/15/2018 04/14/2018 Inactive ciprofloxacin 0.3 % eye drops RxNorm: 005108 2 Drop(s) ophthalmic (eye) Q2H while awake x 2 days, then Q4H x 5 days 11/23/2017 05/27/2018 Inactive Keflex 500 mg capsule RxNorm: 313858 1 Capsule(s) PO TID 11/23/2017 11/29/2017 Inactive hydrocodone 10 mg-acetaminophen 325 mg tablet RxNorm: 943099 Tablet(s) PO TAKE ONE TO TWO TABLETS BY MOUTH EVERY 6 HOURS NEEDED FOR PAIN 10/30/2017 11/13/2017 Inactive Augmentin 500 mg-125 mg tablet RxNorm: 066581 1 Tablet(s) PO TID 10/27/2017 11/05/2017 Inactive alprazolam 0.25 mg tablet RxNorm: 352650 1 Tablet(s) PO daily as needed 10/26/2017 04/24/2018 Inactive trazodone 50 mg tablet RxNorm: 715020 TAKE ONE AND ONE-HALF (1 1/2) TABLET BY MOUTH AT BEDTIME. MAY INCREASE TO 2 TABLETS AT BEDTIME NEEDED 09/25/2017 02/03/2018 Inactive Lexapro 20 mg tablet RxNorm: 833255 TAKE ONE AND ONE-HALF TABLET BY MOUTH DAILY 09/15/2017 09/09/2018 Active Flagyl 500 mg tablet RxNorm: 462963 1 Tablet(s) PO TID 09/12/2017 09/21/2017 Inactive promethazine 25 mg tablet RxNorm: 196074 1 Tablet(s) PO TID as needed nausea and vomitting THIS WILL MAKE YOU SLEEPY 09/12/2017 11/08/2017 Inactive Keflex 500 mg capsule RxNorm: 122370 1 Capsule(s) PO QID 08/25/2017 08/31/2017 Inactive [SAVINGS FOR UNINSURED PATIENTS -- [id number], PCN: [id number], Group: [id number], ID# [id number], Process claim through [employer] for questions: . THIS IS NOT INSURANCE.] alprazolam 0.25 mg tablet RxNorm: 080528 1 Tablet(s) PO daily as needed 07/31/2017 04/24/2018 Inactive prednisone 20 mg tablet RxNorm: 980495 2 Tablet(s) PO daily 07/25/2017 07/29/2017 Inactive Augmentin 500 mg-125 mg tablet RxNorm: 588765 1 Tablet(s) PO TID 07/25/2017 08/03/2017 Inactive trazodone 50 mg tablet RxNorm: 905719 TAKE ONE AND ONE-HALF (1 1/2) TABLET BY MOUTH AT BEDTIME. MAY INCREASE TO 2 TABLETS AT BEDTIME NEEDED 06/30/2017 09/03/2017 Inactive Bystolic 10 mg tablet RxNorm: 024884 TAKE ONE TABLET BY MOUTH DAILY 06/30/2017 2017 Inactive hydrochlorothiazide 25 mg tablet RxNorm: 805985 TAKE ONE TABLET BY MOUTH DAILY 06/30/2017 01/18/2018 Inactive Flagyl 500 mg tablet RxNorm: 765718 1 Tablet(s) PO TID 06/27/2017 07/03/2017 Inactive Phenergan with Codeine Syrup RxNorm: 5-10 Milliliter(s) PO Q6 PRN 06/27/2017 11/15/2017 Inactive Levaquin 500 mg tablet RxNorm: 215004 1 Tablet(s) PO daily 06/27/2017 07/03/2017 Inactive Kenalog 40 mg/mL suspension for injection RxNorm: 4032678 1 Milliliter(s) Inj 06/27/2017 06/27/2017 Inactive Nexium 40 mg capsule,delayed release RxNorm: 929772 1 Capsule(s) PO BID TAKE ONE CAPSULE BY MOUTH BID 05/22/2017 09/18/2017 Inactive Nexium 40 mg capsule,delayed release RxNorm: 798799 1 Capsule(s) PO BID TAKE ONE CAPSULE BY MOUTH BID 05/22/2017 05/21/2017 Inactive hydrocodone 10 mg-acetaminophen 325 mg tablet RxNorm: 236929 Tablet(s) PO TAKE ONE TO TWO TABLETS BY MOUTH EVERY 6 HOURS NEEDED FOR PAIN 05/17/2017 06/15/2017 Inactive Nexium 40 mg capsule,delayed release RxNorm: 742556 Capsule(s) TAKE ONE CAPSULE BY MOUTH BID 05/17/2017 05/21/2017 Inactive alprazolam 0.25 mg tablet RxNorm: 333467 1 Tablet(s) PO daily as needed 05/03/2017 07/01/2017 Inactive Levaquin 500 mg tablet RxNorm: 929422 1 Tablet(s) PO daily 04/20/2017 04/26/2017 Inactive clotrimazole 1 % topical cream RxNorm: 318675 1 Application TOP BID 04/20/2017 11/07/2017 Inactive Kenalog 40 mg/mL suspension for injection RxNorm: 5296552 Milliliter(s) Inj 04/20/2017 04/20/2017 Inactive nystatin 100,000 unit/gram topical powder RxNorm: 959485 1 Gram(s) APPLY TOPICALLY TWO TIMES A DAY 04/10/2017 07/08/2017 Inactive trazodone 50 mg tablet RxNorm: 063446 TAKE ONE AND ONE-HALF (1 1/2) TABLET BY MOUTH AT BEDTIME. MAY INCREASE TO 2 TABLETS AT BEDTIME NEEDED 03/28/2017 06/23/2017 Inactive Augmentin 875 mg-125 mg tablet RxNorm: 282280 1 Tablet(s) PO BID 03/14/2017 03/20/2017 Inactive Kenalog 40 mg/mL suspension for injection RxNorm: 5369193 1 Milliliter(s) Inj 03/14/2017 03/14/2017 Inactive Lexapro 20 mg tablet RxNorm: 740425 1.5 Tablet(s) PO daily 03/08/2017 03/07/2017 Inactive Lexapro 20 mg tablet RxNorm: 365861 1.5 Tablet(s) PO daily 03/08/2017 07/05/2017 Inactive alprazolam 0.25 mg tablet RxNorm: 674312 1 Tablet(s) PO daily as needed 02/23/2017 04/23/2017 Inactive (Response to an electronic controlled substance refill request - RxReferenceNumber: [id number]) Flagyl 500 mg tablet RxNorm: 846907 1 Tablet(s) PO TID 02/20/2017 03/01/2017 Inactive promethazine 25 mg tablet RxNorm: 772308 1 Tablet(s) PO TID as needed nausea 02/20/2017 03/01/2017 Inactive Cipro 500 mg tablet RxNorm: 659396 1 Tablet(s) PO BID 02/20/2017 03/01/2017 Inactive Flagyl 500 mg tablet RxNorm: 626346 1 Tablet(s) PO TID 02/09/2017 02/15/2017 Inactive Trintellix 10 mg tablet RxNorm: 2394974 1 Tablet(s) PO QAM 02/06/2017 03/07/2017 Inactive Efudex 5 % topical cream RxNorm: 935219 1 Application TOP BID use on skin spot on nose 02/06/2017 02/15/2017 Inactive Bystolic 10 mg tablet RxNorm: 603363 TAKE ONE TABLET BY MOUTH DAILY 02/03/2017 06/02/2017 Inactive Imitrex 50 mg tablet RxNorm: 339224 TAKE ONE TABLET BY MOUTH EVERY 8 HOURS NEEDED MAY REPEAT IN 1 HOUR OF INITIAL DOSE. DISCONTINUE FIORICET 12/22/2016 02/19/2017 Inactive Nexium 40 mg capsule,delayed release RxNorm: 885955 TAKE ONE CAPSULE BY MOUTH EVERY DAY 12/21/2016 05/16/2017 Inactive Lexapro 20 mg tablet RxNorm: 688658 Tablet(s) TAKE ONE TABLET BY MOUTH DAILY 12/05/2016 02/05/2017 Inactive Augmentin 875 mg-125 mg tablet RxNorm: 217785 1 Tablet(s) PO BID 11/28/2016 12/04/2016 Inactive ceftriaxone 500 mg solution for injection RxNorm: 8671618 1 Milliliter(s) Inj 11/28/2016 11/28/2016 Inactive hydrocodone 10 mg-acetaminophen 325 mg tablet RxNorm: 182982 Tablet(s) PO TAKE ONE TO TWO TABLETS BY MOUTH EVERY 6 HOURS NEEDED FOR PAIN 11/28/2016 05/16/2017 Inactive (Appended: Controlled substance eRx refill - RxReferenceNumber: [id number]) prednisone 20 mg tablet RxNorm: 614536 2 Tablet(s) PO daily 11/28/2016 12/02/2016 Inactive Synthroid 100 mcg tablet RxNorm: 083957 1 Tablet(s) PO daily 11/21/2016 05/19/2017 Inactive Brand name only! trazodone 50 mg tablet RxNorm: 974038 TAKE 1 AND 1/2 TABLETS EVERY NIGHT AT BEDTIME , MAY INCREASE TO 2 TABLETS AT BEDTIME NEEDED 11/21/2016 02/16/2017 Inactive trazodone 50 mg tablet RxNorm: 267647 Tablet(s) TAKE 1 AND 1/2 TABLETS EVERY NIGHT AT BEDTIME , MAY INCREASE TO 2 TABLETS AT BEDTIME NEEDED 11/21/2016 11/20/2016 Inactive Synthroid 100 mcg tablet RxNorm: 017503 1 Tablet(s) PO daily TAKE ONE TABLET BY MOUTH DAILY 11/08/2016 11/20/2016 Inactive ceftriaxone 500 mg solution for injection RxNorm: 5396535 Inj 11/07/2016 11/07/2016 Inactive Kenalog 40 mg/mL suspension for injection RxNorm: 2877062 Milliliter(s) Inj 11/07/2016 11/07/2016 Inactive Xanax 0.25 mg tablet RxNorm: 380470 1 Tablet(s) PO daily as needed 10/31/2016 05/02/2017 Inactive alprazolam 0.25 mg tablet RxNorm: 561594 1 Tablet(s) PO daily as needed 10/21/2016 12/18/2016 Inactive (Response to an electronic controlled substance refill request - RxReferenceNumber: [id number]) hydrochlorothiazide 25 mg tablet RxNorm: 709249 TAKE ONE TABLET BY MOUTH DAILY 10/11/2016 04/08/2017 Inactive Xanax 0.25 mg tablet RxNorm: 693697 1 Tablet(s) PO daily as needed 08/23/2016 10/19/2016 Inactive Flonase Allergy Relief 50 mcg/actuation nasal spray,suspension RxNorm: 6929833 1 [place] NASAL daily 08/15/2016 No Stop Date Active amoxicillin 500 mg capsule RxNorm: 929108 1 Capsule(s) PO TID 08/15/2016 08/24/2016 Inactive Bystolic 10 mg tablet RxNorm: 000765 TAKE ONE TABLET BY MOUTH DAILY 08/01/2016 12/28/2016 Inactive trazodone 50 mg tablet RxNorm: 256810 TAKE 1 AND 1/2 TABLETS EVERY NIGHT AT BEDTIME , MAY INCREASE TO 2 TABLETS AT BEDTIME NEEDED 07/25/2016 11/11/2016 Inactive alprazolam 0.25 mg tablet RxNorm: 752142 1 Tablet(s) PO daily as needed 07/25/2016 08/22/2016 Inactive (Response to an electronic controlled substance refill request - RxReferenceNumber: [id number]) Imitrex 50 mg tablet RxNorm: 429008 1 Tablet(s) PO Q8 as needed may repeat x1 dose in 1 hour of inital dose. 07/13/2016 No Stop Date Active Lexapro 20 mg tablet RxNorm: 996537 TAKE 1/2 TABLET BY MOUTH DAILY FOR 10 DAYS, THEN TAKE ONE TABLET BY MOUTH DAILY 06/27/2016 11/23/2016 Inactive Synthroid 100 mcg tablet RxNorm: 942120 TAKE ONE TABLET BY MOUTH DAILY 06/20/2016 11/07/2016 Inactive Augmentin 500 mg-125 mg tablet RxNorm: 143661 1 Tablet(s) PO TID 06/07/2016 06/13/2016 Inactive hydrocodone 10 mg-acetaminophen 325 mg tablet RxNorm: 158503 Tablet(s) PO TAKE ONE TO TWO TABLETS BY MOUTH EVERY 6 HOURS NEEDED FOR PAIN 06/07/2016 11/27/2016 Inactive (Appended: Controlled substance eRx refill - RxReferenceNumber: [id number]) hydrochlorothiazide 25 mg tablet RxNorm: 443885 TAKE ONE TABLET BY MOUTH DAILY 03/14/2016 09/09/2016 Inactive Edarbi 40 mg tablet RxNorm: 7060070 1 Tablet(s) PO daily 03/14/2016 06/06/2016 Inactive trazodone 50 mg tablet RxNorm: 106240 Tablet(s) TAKE 1 AND 1/2 TABLET AT BEDTIME. MAY INCREASE TO 2 TABLETS IF NECESSARY 02/25/2016 07/05/2016 Inactive Imitrex 50 mg tablet RxNorm: 322492 1 Tablet(s) PO Q8 as needed may repeat x1 dose in 1 hour of inital dose. 02/25/2016 07/12/2016 Inactive dc fioricet Xanax 0.25 mg tablet RxNorm: 695242 1 Tablet(s) PO daily as needed 02/24/2016 07/21/2016 Inactive mupirocin 2 % topical ointment RxNorm: 777172 1 TOP BID 02/22/2016 11/08/2017 Inactive Bactrim DS 800 mg-160 mg tablet RxNorm: 278990 1 Tablet(s) PO BID 02/22/2016 03/02/2016 Inactive Fioricet 50 mg-325 mg-40 mg tablet RxNorm: 580615 Tablet(s) TAKE ONE TABLET BY MOUTH EVERY 4 HOURS NEEDED FOR headache 02/12/2016 02/24/2016 Inactive (Response to an electronic controlled substance refill request - RxReferenceNumber: [id number]) Fioricet 50 mg-325 mg-40 mg tablet RxNorm: 568059 Tablet(s) TAKE ONE TABLET BY MOUTH EVERY 4 HOURS NEEDED FOR headache 02/12/2016 02/11/2016 Inactive (Response to an electronic controlled substance refill request - RxReferenceNumber: [id number]) Nexium 40 mg capsule,delayed release RxNorm: 457329 TAKE ONE CAPSULE BY MOUTH EVERY DAY 02/01/2016 10/27/2016 Inactive Bystolic 10 mg tablet RxNorm: 673426 Tablet(s) TAKE ONE TABLET BY MOUTH DAILY 01/06/2016 07/03/2016 Inactive Xanax 0.25 mg tablet RxNorm: 858205 1 Tablet(s) PO daily as needed 12/28/2015 02/23/2016 Inactive Levaquin 500 mg tablet RxNorm: 510724 1 Tablet(s) PO daily take a probiotic daily 12/14/2015 02/11/2016 Inactive Levaquin 500 mg tablet RxNorm: 677720 1 Tablet(s) PO daily take a probiotic daily 12/14/2015 12/13/2015 Inactive prednisone 20 mg tablet RxNorm: 702971 1 Tablet(s) PO BID 12/07/2015 12/13/2015 Inactive Augmentin 875 mg-125 mg tablet RxNorm: 774651 1 Tablet(s) PO BID 12/07/2015 12/13/2015 Inactive ceftriaxone 500 mg solution for injection RxNorm: 0087722 Inj 12/07/2015 12/07/2015 Inactive Phenergan with Codeine Syrup RxNorm: 5-10 Milliliter(s) PO Q6 PRN 12/07/2015 06/26/2017 Inactive alprazolam 0.25 mg tablet RxNorm: 382185 1 Tablet(s) PO daily as needed 11/27/2015 12/25/2015 Inactive (Response to an electronic controlled substance refill request - RxReferenceNumber: [id number]) trazodone 50 mg tablet RxNorm: 074052 TAKE 1 AND 1/2 TABLET AT BEDTIME FOR 2 WEEKS, MAY INCREASE TO 2 TABLETS IF NECESSARY AFTER THAT 11/26/2015 02/24/2016 Inactive ceftriaxone 500 mg solution for injection RxNorm: 5068700 Milliliter(s) Inj 11/24/2015 11/24/2015 Inactive prednisone 10 mg tablet RxNorm: 315853 3 Tablet(s) PO daily 11/24/2015 11/28/2015 Inactive cefdinir 300 mg capsule RxNorm: 023211 1 Capsule(s) PO BID 11/24/2015 11/30/2015 Inactive Kenalog 40 mg/mL suspension for injection RxNorm: 9762445 1 Milliliter(s) Inj 11/24/2015 11/24/2015 Inactive Lexapro 20 mg tablet RxNorm: 774441 TAKE 1/2 TABLET BY MOUTH DAILY FOR 10 DAYS, THEN TAKE ONE TABLET BY MOUTH DAILY 11/23/2015 05/20/2016 Inactive Lipitor 10 mg tablet RxNorm: 407014 Tablet(s) TAKE ONE TABLET BY MOUTH EVERY DAY 10/26/2015 11/06/2016 Inactive Norvasc 10 mg tablet RxNorm: 652275 Tablet(s) PO TAKE ONE TABLET BY MOUTH EVERY DAY 10/26/2015 01/18/2018 Inactive hydrochlorothiazide 25 mg tablet RxNorm: 392838 TAKE ONE TABLET BY MOUTH DAILY 10/20/2015 01/17/2016 Inactive promethazine 25 mg/mL injection solution RxNorm: 952563 Milliliter(s) Inj 08/27/2015 08/27/2015 Inactive ketorolac 60 mg/2 mL intramuscular solution RxNorm: 106725 Milliliter(s) IM 08/27/2015 08/27/2015 Inactive alprazolam 0.25 mg tablet RxNorm: 476482 1 Tablet(s) PO daily as needed 08/27/2015 10/25/2017 Inactive (Response to an electronic controlled substance refill request - RxReferenceNumber: [id number]) Lexapro 20 mg tablet RxNorm: 478218 TAKE 1/2 TABLET BY MOUTH DAILY FOR 10 DAYS, THEN TAKE ONE TABLET BY MOUTH DAILY 08/13/2015 11/10/2015 Inactive Flonase 50 mcg/actuation nasal spray,suspension RxNorm: 666675 PLACE 1 SPRAY IN EACH NOSTRIL DAILY 08/13/2015 02/08/2016 Inactive Augmentin 500 mg-125 mg tablet RxNorm: 083752 1 Tablet(s) PO TID 08/10/2015 08/16/2015 Inactive Kenalog 40 mg/mL suspension for injection RxNorm: 4825895 Milliliter(s) Inj 08/10/2015 08/10/2015 Inactive ceftriaxone 500 mg solution for injection RxNorm: 4707004 Inj 08/10/2015 08/10/2015 Inactive nystatin 100,000 unit/mL oral suspension RxNorm: 605075 4 Milliliter(s) PO QID 08/10/2015 08/16/2015 Inactive trazodone 50 mg tablet RxNorm: 628666 TAKE 1 AND 1/2 TABLET AT BEDTIME FOR 2 WEEKS, MAY INCREASE TO 2 TABLETS IF NECESSARY AFTER THAT 07/31/2015 11/25/2015 Inactive ceftriaxone 500 mg solution for injection RxNorm: 0868461 1 Milliliter(s) Inj 07/28/2015 07/28/2015 Inactive Bactrim DS 800 mg-160 mg tablet RxNorm: 460377 1 Tablet(s) PO BID 07/28/2015 08/06/2015 Inactive Bactroban 2 % topical ointment RxNorm: 756188 1 Application TOP BID 07/28/2015 08/06/2015 Inactive Diflucan 150 mg tablet RxNorm: 079874 1 Tablet(s) PO daily 06/11/2015 06/17/2015 Inactive clotrimazole 1 % topical cream RxNorm: 063705 1 Application TOP BID 06/11/2015 07/10/2015 Inactive Bystolic 10 mg tablet RxNorm: 866657 TAKE ONE TABLET BY MOUTH DAILY 06/08/2015 12/04/2015 Inactive alprazolam 0.25 mg tablet RxNorm: 803097 1 Tablet(s) PO daily as needed 06/01/2015 08/25/2015 Inactive (Response to an electronic controlled substance refill request - RxReferenceNumber: [id number]) Fioricet 50 mg-325 mg-40 mg tablet RxNorm: 737670 Tablet(s) TAKE ONE TABLET BY MOUTH EVERY 4 HOURS NEEDED FOR headache 05/28/2015 06/08/2015 Inactive (Response to an electronic controlled substance refill request - RxReferenceNumber: [id number]) trazodone 50 mg tablet RxNorm: 691413 TAKE 1 AND 1/2 TABLET AT BEDTIME FOR 2 WEEKS, MAY INCREASE TO 2 TABLETS IF NECESSARY AFTER THAT 05/25/2015 08/22/2015 Inactive trazodone 50 mg tablet RxNorm: 127864 TAKE 1 AND 1/2 TABLET AT BEDTIME FOR 2 WEEKS, MAY INCREASE TO 2 TABLETS IF NECESSARY AFTER THAT 05/25/2015 05/24/2015 Inactive Synthroid 100 mcg tablet RxNorm: 750445 TAKE ONE TABLET BY MOUTH DAILY 04/23/2015 01/17/2016 Inactive Lipitor 10 mg tablet RxNorm: 430106 TAKE ONE TABLET BY MOUTH EVERY DAY 04/23/2015 10/25/2015 Inactive Kenalog 40 mg/mL suspension for injection RxNorm: 1459196 Milliliter(s) Inj 03/19/2015 03/19/2015 Inactive Lexapro 20 mg tablet RxNorm: 882688 1 Tablet(s) PO daily 03/19/2015 07/16/2015 Inactive 1/2 tab daily x 10 days then 1 tab daily hydrocodone 10 mg-acetaminophen 325 mg tablet RxNorm: 273994 Tablet(s) PO TAKE ONE TO TWO TABLETS BY MOUTH EVERY 6 HOURS NEEDED FOR PAIN 03/19/2015 06/06/2016 Inactive (Appended: Controlled substance eRx refill - RxReferenceNumber: [id number]) Carafate 1 gram tablet RxNorm: 610543 1 Tablet(s) PO AC & HS 03/19/2015 06/16/2015 Inactive dissolve in water and take as a slurry hydrochlorothiazide 25 mg tablet RxNorm: 019410 1 Tablet(s) PO daily 03/12/2015 09/07/2015 Inactive Nexium 40 mg capsule,delayed release RxNorm: 387316 TAKE ONE CAPSULE BY MOUTH EVERY DAY 02/26/2015 12/22/2015 Inactive Cymbalta 60 mg capsule,delayed release RxNorm: 507939 TAKE ONE CAPSULE BY MOUTH TWICE A DAY 02/23/2015 03/18/2015 Inactive alprazolam 0.25 mg tablet RxNorm: 720268 1 Tablet(s) PO daily as needed 02/11/2015 05/10/2015 Inactive (Response to an electronic controlled substance refill request - RxReferenceNumber: [id number]) trazodone 50 mg tablet RxNorm: 238694 TAKE 1 AND 1/2 TABLET AT BEDTIME FOR 2 WEEKS, MAY INCREASE TO 2 TABLETS IF NECESSARY AFTER THAT 01/27/2015 05/24/2015 Inactive Augmentin 500 mg-125 mg tablet RxNorm: 949455 1 Tablet(s) PO TID 01/07/2015 01/13/2015 Inactive gentamicin 0.3 % eye drops RxNorm: 094520 3 Drop(s) OPH QID 01/07/2015 01/13/2015 Inactive [AttnRPh: Saving apply/adjudicate RxGRP:[id number] RxBIN:[id number] RxPCN: ID#:[id number]] scopolamine 1.5 mg transdermal 72 hour patch RxNorm: 523264 1 Patch TD q72 hours 01/07/2015 11/23/2015 Inactive Synthroid 100 mcg tablet RxNorm: 820866 TAKE ONE TABLET BY MOUTH ONCE A DAY 01/06/2015 04/22/2015 Inactive nystatin 100,000 unit/gram topical powder RxNorm: 390777 APPLY TOPICALLY TWO TIMES A DAY 12/18/2014 03/17/2015 Inactive alprazolam 0.25 mg tablet RxNorm: 837836 TAKE ONE TABLET BY MOUTH DAILY NEEDED 10/30/2014 11/28/2014 Inactive (Response to an electronic controlled substance refill request - RxReferenceNumber: [id number]) alprazolam 0.25 mg tablet RxNorm: 610451 Tablet(s) TAKE ONE TABLET BY MOUTH DAILY 10/30/2014 10/29/2014 Inactive (Response to an electronic controlled substance refill request - RxReferenceNumber: [id number]) Lipitor 10 mg tablet RxNorm: 405131 TAKE ONE TABLET BY MOUTH EVERY DAY 10/30/2014 02/26/2015 Inactive alprazolam 0.25 mg tablet RxNorm: 372360 TAKE ONE TABLET BY MOUTH DAILY 10/07/2014 10/29/2014 Inactive (Response to an electronic controlled substance refill request - RxReferenceNumber: [id number]) alprazolam 0.25 mg tablet RxNorm: 234062 TAKE ONE TABLET BY MOUTH DAILY 10/06/2014 10/07/2014 Inactive (Response to an electronic controlled substance refill request - RxReferenceNumber: [id number]) alprazolam 0.25 mg tablet RxNorm: 598180 Tablet(s) TAKE ONE TABLET BY MOUTH EVERY DAY NEEDED 09/30/2014 10/06/2014 Inactive (Response to an electronic controlled substance refill request - RxReferenceNumber: [id number]) Fioricet 50 mg-325 mg-40 mg tablet RxNorm: 856312 Tablet(s) TAKE ONE TABLET BY MOUTH EVERY 4 HOURS NEEDED FOR headache 09/29/2014 10/12/2014 Inactive (Response to an electronic controlled substance refill request - RxReferenceNumber: [id number]) Bystolic 10 mg tablet RxNorm: 623048 1 Tablet(s) PO daily TAKE ONE TABLET BY MOUTH EVERY DAY 09/29/2014 04/26/2015 Inactive Bystolic 5 mg tablet RxNorm: 033750 TAKE 1 AND 1/2 TABLETS ONCE DAILY 09/24/2014 09/23/2014 Inactive Bystolic 5 mg tablet RxNorm: 910458 Tablet(s) TAKE 1 AND 1/2 TABLETS ONCE DAILY 09/24/2014 09/18/2015 Inactive gentamicin 0.3 % eye drops RxNorm: 830608 3 Drop(s) OPH QID 09/23/2014 09/29/2014 Inactive trazodone 50 mg tablet RxNorm: 532728 TAKE 1 AND 1/2 TABLET AT BEDTIME FOR 2 WEEKS, MAY INCREASE TO 2 TABLETS IF NECESSARY AFTER THAT 09/22/2014 01/26/2015 Inactive Fioricet 50 mg-325 mg-40 mg tablet RxNorm: 097838 TAKE ONE TABLET BY MOUTH EVERY 4 HOURS NEEDED FOR PAIN 09/17/2014 09/28/2014 Inactive (Response to an electronic controlled substance refill request - RxReferenceNumber: [id number]) Duragesic 50 mcg/hr transdermal patch RxNorm: 071223 1 TD q72 hours 08/07/2014 01/06/2015 Inactive [SAVINGS FOR UNINSURED PATIENTS -- BIN:410095, PCN: [id number], Group: [id number], ID# [id number], Process claim through [employer] for questions: . THIS IS NOT INSURANCE.] alprazolam 0.25 mg tablet RxNorm: 793064 TAKE ONE TABLET BY MOUTH EVERY DAY NEEDED 07/31/2014 08/29/2014 Inactive (Response to an electronic controlled substance refill request - RxReferenceNumber: [id number]) alprazolam 0.25 mg tablet RxNorm: 257257 1 Tablet(s) PO daily as needed TAKE ONE TABLET BY MOUTH EVERY DAY NEEDED 07/30/2014 08/01/2014 Inactive (Response to an electronic controlled substance refill request - RxReferenceNumber: [id number]) Diflucan 150 mg tablet RxNorm: 001572 1 Tablet(s) PO daily 06/25/2014 07/01/2014 Inactive [SAVINGS FOR UNINSURED PATIENTS -- BIN:[id number], PCN: [id number], Group: [id number], ID# [id number], Process claim through [employer], for questions: . THIS IS NOT INSURANCE.] Kenalog 40 mg/mL suspension for injection RxNorm: 3753993 Milliliter(s) Inj 06/23/2014 06/23/2014 Inactive [SAVINGS FOR UNINSURED PATIENTS -- BIN:[id number], PCN: ASPROD1, Group: [id number], ID# [id number], Process claim through MedImpact, for questions: . THIS IS NOT INSURANCE.] ceftriaxone 500 mg solution for injection RxNorm: 176246 Inj 06/23/2014 06/23/2014 Inactive [SAVINGS FOR UNINSURED PATIENTS -- BIN:812894, PCN: ASPROD1, Group: [id number], ID# [id number], Process claim through MedImpact, for questions: . THIS IS NOT INSURANCE.] Levaquin 500 mg tablet RxNorm: 962539 1 Tablet(s) PO daily 06/23/2014 07/13/2014 Inactive [SAVINGS FOR UNINSURED PATIENTS -- BIN:195060, PCN: ASPROD1, Group: [id number], ID# [id number], Process claim through MedImpact, for questions: . THIS IS NOT INSURANCE.] Duragesic 50 mcg/hr transdermal patch RxNorm: 821175 1 TD q72 hours 06/05/2014 08/06/2014 Inactive [SAVINGS FOR UNINSURED PATIENTS -- BIN:[id number], PCN: ASPROD1, Group: [id number], ID# [id number], Process claim through MedImpact, for questions: . THIS IS NOT INSURANCE.] alprazolam 0.25 mg tablet RxNorm: 180797 1 Tablet(s) PO daily as needed TAKE ONE TABLET BY MOUTH EVERY DAY NEEDED 06/02/2014 07/29/2014 Inactive (Response to an electronic controlled substance refill request - RxReferenceNumber: [id number]) nystatin 100,000 unit/gram topical powder RxNorm: 845053 APPLY TO AFFECTED AREA(S) TWO TIMES A DAY 05/01/2014 06/14/2014 Inactive hydrochlorothiazide 25 mg tablet RxNorm: 773949 TAKE ONE TABLET BY MOUTH EVERY DAY MUST CALL MD FOR APPOINTMENT 04/24/2014 10/20/2014 Inactive alprazolam 0.25 mg tablet RxNorm: 647902 Tablet(s) TAKE ONE TABLET BY MOUTH EVERY DAY NEEDED 04/16/2014 06/02/2014 Inactive (Response to an electronic controlled substance refill request - RxReferenceNumber: [id number]) alprazolam 0.25 mg tablet RxNorm: 805108 TAKE ONE TABLET BY MOUTH EVERY DAY NEEDED 04/16/2014 05/15/2014 Inactive (Response to an electronic controlled substance refill request - RxReferenceNumber: [id number]) alprazolam 0.25 mg tablet RxNorm: 371620 TAKE ONE TABLET BY MOUTH EVERY DAY NEEDED 04/16/2014 05/15/2014 Inactive (Response to an electronic controlled substance refill request - RxReferenceNumber: [id number]) alprazolam 0.25 mg tablet RxNorm: 682292 TAKE ONE TABLET BY MOUTH EVERY DAY NEEDED 04/14/2014 04/16/2014 Inactive (Response to an electronic controlled substance refill request - RxReferenceNumber: [id number]) Lipitor 10 mg tablet RxNorm: 690796 TAKE ONE TABLET BY MOUTH EVERY DAY 04/14/2014 09/10/2014 Inactive alprazolam 0.25 mg tablet RxNorm: 507557 TAKE ONE TABLET BY MOUTH EVERY DAY NEEDED 04/14/2014 04/14/2014 Inactive (Response to an electronic controlled substance refill request - RxReferenceNumber: [id number]) alprazolam 0.25 mg tablet RxNorm: 739248 TAKE ONE TABLET BY MOUTH EVERY DAY NEEDED 04/14/2014 04/15/2014 Inactive (Response to an electronic controlled substance refill request - RxReferenceNumber: [id number]) alprazolam 0.25 mg tablet RxNorm: 787660 TAKE ONE TABLET BY MOUTH EVERY DAY NEEDED 04/14/2014 04/14/2014 Inactive (Response to an electronic controlled substance refill request - [id number]) nystatin 100,000 unit/gram topical powder RxNorm: 443358 1 Application TOP BID 04/03/2014 07/01/2014 Inactive [SAVINGS FOR UNINSURED PATIENTS -- BIN:[id number], PCN: ASPROD1, Group: [id number], ID# [id number], Process claim through MedImpact, for questions: . THIS IS NOT INSURANCE.] Keflex 500 mg capsule RxNorm: 714488 1 Capsule(s) PO QID 04/03/2014 04/09/2014 Inactive [SAVINGS FOR UNINSURED PATIENTS -- BIN:392693, PCN: ASPROD1, Group: [id number], ID# [id number], Process claim through MedImpact, for questions: . THIS IS NOT INSURANCE.] Synthroid 100 mcg tablet RxNorm: 022600 1 Tablet(s) PO daily TAKE ONE TABLET BY MOUTH EVERY DAY 04/01/2014 01/05/2015 Inactive [SAVINGS FOR UNINSURED PATIENTS -- BIN:817877, PCN: ASPROD1, Group: [id number], ID# [id number], Process claim through MedImpact, for questions: . THIS IS NOT INSURANCE.] Duragesic 50 mcg/hr transdermal patch RxNorm: 222408 1 TD q72 hours 03/24/2014 06/04/2014 Inactive [SAVINGS FOR UNINSURED PATIENTS -- BIN:728701, PCN: ASPROD1, Group: [id number], ID# [id number], Process claim through MedImpact, for questions: . THIS IS NOT INSURANCE.] trazodone 50 mg tablet RxNorm: 696991 TAKE 1 AND 1/2 TABLET AT BEDTIME FOR 2 WEEKS, MAY INCREASE TO 2 TABLETS IF NECESSARY AFTER THAT 03/18/2014 09/13/2014 Inactive nystatin 100,000 unit/gram topical powder RxNorm: 258754 1 Application TOP BID 03/07/2014 03/16/2014 Inactive [SAVINGS FOR UNINSURED PATIENTS -- BIN:947963, PCN: ASPROD1, Group: [id number], ID# [id number], Process claim through MedImpact, for questions: . THIS IS NOT INSURANCE.] permethrin 5 % topical cream RxNorm: 381092 1 Application TOP daily 03/07/2014 11/23/2015 Inactive apply head to toe-leave on overnight and wash off in the a.m. May repeat x 1 if needed Diflucan 150 mg tablet RxNorm: 919423 1 Tablet(s) PO daily 03/07/2014 03/09/2014 Inactive [SAVINGS FOR UNINSURED PATIENTS -- BIN:213656, PCN: ASPROD1, Group: [id number], ID# [id number], Process claim through MedImpact, for questions: . THIS IS NOT INSURANCE.] hydrochlorothiazide 25 mg tablet RxNorm: 489404 TAKE ONE TABLET BY MOUTH EVERY DAY MUST CALL MD FOR APPOINTMENT 03/06/2014 04/23/2014 Inactive Zithromax Z-Sergio 250 mg tablet RxNorm: 690141 Tablet(s) PO as directed 03/04/2014 11/23/2015 Inactive [SAVINGS FOR UNINSURED PATIENTS -- BIN:913229, PCN: ASPROD1, Group: [id number], ID# [id number], Process claim through MedImpact, for questions: . THIS IS NOT INSURANCE.] Flonase 50 mcg/actuation nasal spray,suspension RxNorm: 408216 1 [place] NASAL daily 03/04/2014 07/01/2014 Inactive [SAVINGS FOR UNINSURED PATIENTS -- BIN:005077, PCN: ASPROD1, Group: [id number], ID# [id number], Process claim through MedImpact, for questions: . THIS IS NOT INSURANCE.] alprazolam 0.25 mg tablet RxNorm: 346275 1 Tablet(s) PO PRN TAKE ONE TABLET BY MOUTH EVERY DAY NEEDED 02/25/2014 04/14/2014 Inactive (Appended: Controlled substance eRx refill - RxReferenceNumber: [id number]) alprazolam 0.25 mg tablet RxNorm: 228895 TAKE ONE TABLET BY MOUTH EVERY DAY NEEDED 02/21/2014 03/22/2014 Inactive (Response to an electronic controlled substance refill request - RxReferenceNumber: [id number]) alprazolam 0.25 mg tablet RxNorm: 827805 TAKE ONE TABLET BY MOUTH EVERY DAY NEEDED 02/21/2014 03/22/2014 Inactive (Response to an electronic controlled substance refill request - RxReferenceNumber: [id number]) alprazolam 0.25 mg tablet RxNorm: 819104 TAKE ONE TABLET BY MOUTH EVERY DAY NEEDED 02/18/2014 03/19/2014 Inactive (Response to an electronic controlled substance refill request - RxReferenceNumber: [id number]) Cymbalta 60 mg capsule,delayed release RxNorm: 604733 TAKE ONE CAPSULE BY MOUTH TWICE A DAY 02/18/2014 01/13/2015 Inactive Nexium 40 mg capsule,delayed release RxNorm: 960910 TAKE ONE CAPSULE BY MOUTH EVERY DAY 02/18/2014 01/13/2015 Inactive Bactrim DS 800 mg-160 mg tablet RxNorm: 886565 1 Tablet(s) PO BID 02/13/2014 02/19/2014 Inactive probiotic while one antibiotic Bactrim DS 800 mg-160 mg tablet RxNorm: 275316 1 Tablet(s) PO BID 02/13/2014 02/12/2014 Inactive hydrocodone 10 mg-acetaminophen 325 mg tablet RxNorm: 649693 Tablet(s) PO TAKE ONE TO TWO TABLETS BY MOUTH EVERY 6 HOURS NEEDED FOR PAIN 02/06/2014 03/18/2015 Inactive (Appended: Controlled substance eRx refill - RxReferenceNumber: [id number]) Abilify 2 mg tablet RxNorm: 286249 Tablet(s) PO TAKE ONE TABLET BY MOUTH EVERY NIGHT AT BEDTIME 02/03/2014 03/19/2015 Inactive Duragesic 50 mcg/hr transdermal patch RxNorm: 169070 1 TD q72 hours 01/14/2014 03/23/2014 Inactive alprazolam 0.25 mg tablet RxNorm: 319771 1 Tablet(s) PO QDAY PRN 01/14/2014 02/12/2014 Inactive alprazolam 0.25 mg tablet RxNorm: 447092 Tablet(s) PO TAKE ONE TABLET BY MOUTH EVERY DAY NEEDED 01/14/2014 02/24/2014 Inactive (Appended: Controlled substance eRx refill - RxReferenceNumber: [id number]) Lipitor 10 mg tablet RxNorm: 114026 Tablet(s) PO TAKE ONE TABLET BY MOUTH EVERY DAY 01/14/2014 04/13/2014 Inactive Synthroid 100 mcg tablet RxNorm: 249780 Tablet(s) PO TAKE ONE TABLET BY MOUTH EVERY DAY 2013 03/31/2014 Inactive Fioricet 50 mg-325 mg-40 mg tablet RxNorm: 206763 Tablet(s) PO TAKE ONE TABLET BY MOUTH EVERY 4 HOURS NEEDED FOR PAIN 11/27/2013 09/17/2014 Inactive Fioricet 50 mg-325 mg-40 mg tablet RxNorm: 144946 Tablet(s) PO TAKE ONE TABLET BY MOUTH EVERY 4 HOURS NEEDED FOR PAIN 11/25/2013 11/26/2013 Inactive Zithromax Z-Sergio 250 mg tablet RxNorm: 149477 Tablet(s) PO as directed 11/11/2013 01/13/2014 Inactive Bystolic 10 mg tablet RxNorm: 164599 Tablet(s) PO TAKE ONE TABLET BY MOUTH EVERY DAY 10/21/2013 09/28/2014 Inactive Abilify 2 mg tablet RxNorm: 401371 1 Tablet(s) PO QHS 09/25/2013 01/22/2014 Inactive Synthroid 100 mcg tablet RxNorm: 737288 Tablet(s) PO TAKE ONE TABLET BY MOUTH EVERY DAY 09/24/2013 12/25/2013 Inactive Abilify 2 mg tablet RxNorm: 437293 1 Tablet(s) PO QHS 09/24/2013 09/24/2013 Inactive Rocephin 500 mg solution for injection RxNorm: 726017 1ml Milliliter(s) Inj 09/24/2013 09/24/2013 Inactive Rocephin 500 mg solution for injection RxNorm: 863142 1 Milliliter(s) Inj 09/19/2013 09/19/2013 Inactive Bystolic 5 mg tablet RxNorm: 550454 1 1/2 Tablet(s) PO daily 09/17/2013 03/15/2014 Inactive 1 1/2 daily may have 90 day if cheaper Bystolic 5 mg tablet RxNorm: 363661 1 1/2 Tablet(s) PO daily 09/17/2013 09/16/2013 Inactive 1 1/2 daily Lipitor 10 mg tablet RxNorm: 262041 Tablet(s) PO TAKE ONE TABLET BY MOUTH EVERY DAY 09/12/2013 01/13/2014 Inactive hydrocodone 10 mg-acetaminophen 325 mg tablet RxNorm: 011579 Tablet(s) PO TAKE ONE TO TWO TABLETS BY MOUTH EVERY 6 HOURS NEEDED FOR PAIN 09/09/2013 10/29/2017 Inactive (Appended: Controlled substance eRx refill - RxReferenceNumber: [id number]) hydrocodone 10 mg-acetaminophen 325 mg tablet RxNorm: 471603 1 Tablet(s) PO Q6 PRN 09/09/2013 02/06/2014 Inactive hydrocodone 10 mg-acetaminophen 325 mg tablet RxNorm: 963985 Tablet(s) PO TAKE ONE TO TWO TABLETS BY MOUTH EVERY 6 HOURS NEEDED FOR PAIN 09/06/2013 10/29/2017 Inactive (Appended: Controlled substance eRx refill - RxReferenceNumber: [id number]) Norvasc 10 mg tablet RxNorm: 982745 Tablet(s) PO TAKE ONE TABLET BY MOUTH EVERY DAY 09/05/2013 10/25/2015 Inactive trazodone 50 mg tablet RxNorm: 840435 1 1/2 Tablet(s) PO QHS 09/03/2013 03/17/2014 Inactive 75q hs x 2 week may increase to 100mg if nec after that nystatin 100,000 unit/mL oral suspension RxNorm: 307433 6 Milliliter(s) PO QID 08/06/2013 08/15/2013 Inactive Flonase 50 mcg/actuation nasal spray,suspension RxNorm: 851256 2 [place] NASAL daily 08/06/2013 03/03/2014 Inactive nystatin 100,000 unit/mL oral suspension RxNorm: 151985 6 Unit(s) PO QID 08/05/2013 08/05/2013 Inactive Phenergan with Codeine Syrup RxNorm: 5 Milliliter(s) PO Q4 PRN 08/05/2013 12/02/2013 Inactive 8 ounces alprazolam 0.25 mg tablet RxNorm: 557469 1 Tablet(s) PO QDAY PRN 07/29/2013 01/14/2014 Inactive Diflucan 150 mg tablet RxNorm: 208375 1 Tablet(s) PO daily 07/24/2013 07/26/2013 Inactive hydrochlorothiazide 25 mg tablet RxNorm: 185471 Tablet(s) PO TAKE ONE TABLET BY MOUTH EVERY DAY MUST CALL MD FOR APPOINTMENT 07/19/2013 03/05/2014 Inactive Phenergan with Codeine Syrup RxNorm: 10 Milliliter(s) PO Q4 PRN 07/10/2013 08/04/2013 Inactive 8 ounces Rocephin 500 mg solution for injection RxNorm: 858614 1 Inj 07/10/2013 07/10/2013 Inactive cefdinir 300 mg capsule RxNorm: 403502 1 Capsule(s) PO BID 07/10/2013 07/16/2013 Inactive prednisone 10 mg tablet RxNorm: 809852 3 Tablet(s) PO daily 07/10/2013 07/14/2013 Inactive Carafate 100 mg/mL oral suspension RxNorm: 181867 10 Milliliter(s) PO Q6 PRN pt to take carafate 10mL every 6 hours as needed. 07/10/2013 08/05/2014 Inactive Kenalog 40 mg/mL suspension for injection RxNorm: 7470380 1 Milliliter(s) Inj 07/10/2013 07/10/2013 Inactive trazodone 50 mg tablet RxNorm: 720419 1 Tablet(s) PO QHS 07/10/2013 09/02/2013 Inactive sulfamethoxazole 800 mg-trimethoprim 160 mg tablet RxNorm: 465117 1 Tablet(s) PO BID 06/03/2013 06/12/2013 Inactive Synthroid 125 mcg tablet RxNorm: 171882 1 Tablet(s) PO daily 05/07/2013 09/23/2013 Inactive Bystolic 10 mg tablet RxNorm: 331712 1.5 Tablet(s) PO daily 05/07/2013 09/03/2013 Inactive Voltaren 1 % Topical Gel RxNorm: 235278 4 Gram(s) TOP QID apply 4 grams to knees, 2 grams to hands and ankles four times daily. 05/07/2013 09/03/2013 Inactive hydrocodone 10 mg-acetaminophen 325 mg tablet RxNorm: 439499 1 Tablet(s) PO Q6 PRN 04/23/2013 09/09/2013 Inactive Norvasc 10 mg tablet RxNorm: 387945 Tablet(s) PO TAKE ONE TABLET BY MOUTH EVERY DAY 04/23/2013 09/04/2013 Inactive alprazolam 0.25 mg tablet RxNorm: 777544 1 Tablet(s) PO QDAY PRN 03/25/2013 07/22/2013 Inactive Bystolic 10 mg tablet RxNorm: 478937 1 Tablet(s) PO daily TAKE ONE TABLET BY MOUTH EVERY DAY 03/25/2013 05/06/2013 Inactive zolpidem 10 mg tablet RxNorm: 383514 1 Tablet(s) PO HS PRN 03/25/2013 07/09/2013 Inactive gentamicin 0.3 % Eye Drops RxNorm: 9136412 3 Drop(s) OPH QID three gtts to each eye QID x 7 days 03/11/2013 03/10/2013 Inactive gentamicin 0.3 % eye drops RxNorm: 148268 3 Drop(s) OPH QID three gtts to each eye QID x 7 days 03/11/2013 03/17/2013 Inactive Nexium 40 mg capsule,delayed release RxNorm: 512677 Capsule(s) PO TAKE ONE CAPSULE BY MOUTH EVERY DAY 02/15/2013 02/17/2014 Inactive Cymbalta 60 mg capsule,delayed release RxNorm: 812341 Capsule(s) PO TAKE ONE CAPSULE BY MOUTH TWICE A DAY 02/15/2013 02/17/2014 Inactive hydrocodone 10 mg-acetaminophen 325 mg tablet RxNorm: 3904799 1 Tablet(s) PO Q6 PRN 01/22/2013 04/22/2013 Inactive Lipitor 10 mg tablet RxNorm: 992146 Tablet(s) PO TAKE ONE TABLET BY MOUTH EVERY DAY 01/07/2013 09/11/2013 Inactive Cymbalta 60 mg capsule,delayed release RxNorm: 664063 Capsule(s) PO TAKE ONE CAPSULE BY MOUTH TWICE A DAY 01/02/2013 02/14/2013 Inactive Synthroid 100 mcg tablet RxNorm: 611907 1 Tablet(s) PO 12/03/2012 05/06/2013 Inactive Enablex 7.5 mg tablet,extended release RxNorm: 566754 1 Tablet(s) PO daily 11/28/2012 11/27/2012 Inactive Enablex 7.5 mg tablet,extended release RxNorm: 712767 1 Tablet(s) PO daily 11/28/2012 11/28/2012 Inactive scopolamine 1.5 mg 72 hr Transderm Patch RxNorm: 976190 1 Milligram(s) TD q72 hours 11/26/2012 05/06/2013 Inactive hydrochlorothiazide 25 mg tablet RxNorm: 007640 Tablet(s) PO TAKE ONE TABLET BY MOUTH EVERY DAY MUST CALL MD FOR APPOINTMENT 11/24/2012 07/18/2013 Inactive Cymbalta 60 mg capsule,delayed release RxNorm: 212029 Capsule(s) PO TAKE ONE CAPSULE BY MOUTH TWICE A DAY 10/26/2012 01/01/2013 Inactive Bystolic 10 mg tablet RxNorm: 743375 Tablet(s) PO TAKE ONE TABLET BY MOUTH EVERY DAY 10/12/2012 03/25/2013 Inactive zolpidem 10 mg tablet RxNorm: 644476 1 Tablet(s) PO HS PRN 10/02/2012 01/29/2013 Inactive alprazolam 0.25 mg tablet RxNorm: 617990 1 Tablet(s) PO QDAY PRN 10/02/2012 01/29/2013 Inactive Kenalog 40 mg/mL Susp for Injection RxNorm: 2950082 1 Milliliter(s) Inj 09/24/2012 09/24/2012 Inactive Diflucan 150 mg tablet RxNorm: 982615 1 Tablet(s) PO daily 09/24/2012 09/30/2012 Inactive acyclovir 400 mg tablet RxNorm: 891105 1 Tablet(s) PO QID 09/24/2012 10/08/2012 Inactive Cipro 500 mg tablet RxNorm: 452344 1 Tablet(s) PO BID 09/24/2012 09/30/2012 Inactive Tamiflu 75 mg capsule RxNorm: 131205 1 Capsule(s) PO BID 09/17/2012 09/16/2012 Inactive Tamiflu 75 mg capsule RxNorm: 495119 1 Capsule(s) PO BID 09/17/2012 09/16/2012 Inactive Tamiflu 75 mg capsule RxNorm: 076783 1 Capsule(s) PO BID please disregard order for #14 09/17/2012 09/21/2012 Inactive fluconazole 150 mg tablet RxNorm: 444205 1 Tablet(s) PO daily 09/10/2012 09/13/2012 Inactive ketoconazole 2 % Topical Cream RxNorm: 748125 Application TOP BID apply to affected area BID until gone 08/31/2012 11/01/2017 Inactive Norvasc 10 mg tablet RxNorm: 829936 Tablet(s) PO TAKE ONE TABLET BY MOUTH EVERY DAY 08/29/2012 04/22/2013 Inactive Cipro 500 mg tablet RxNorm: 763856 1 Tablet(s) PO BID 08/17/2012 08/26/2012 Inactive Flagyl 500 mg tablet RxNorm: 679729 1 Tablet(s) PO TID 08/17/2012 08/23/2012 Inactive Cipro 500 mg tablet RxNorm: 257881 1 Tablet(s) PO BID 08/17/2012 08/16/2012 Inactive zolpidem 10 mg tablet RxNorm: 785218 1 Tablet(s) PO HS PRN 08/17/2012 09/15/2012 Inactive Flagyl 500 mg tablet RxNorm: 046136 1 Tablet(s) PO TID 08/17/2012 08/16/2012 Inactive alprazolam 0.25 mg tablet RxNorm: 029702 1 Tablet(s) PO QDAY PRN 08/17/2012 09/15/2012 Inactive Belle Allergy 180 mg tablet RxNorm: 855706 1 Tablet(s) PO daily 08/08/2012 02/03/2013 Inactive hydrochlorothiazide 25 mg tablet RxNorm: 183873 1/2 Tablet(s) PO daily 08/08/2012 11/05/2012 Inactive needs appt Carafate 1 gram tablet RxNorm: 009418 1 Tablet(s) PO QID mix with 10 cc water and dissolve into slurry 08/08/2012 08/21/2012 Inactive hydrocodone 10 mg-acetaminophen 325 mg tablet RxNorm: 9904601 1 Tablet(s) PO Q6 PRN 08/08/2012 01/21/2013 Inactive Synthroid 100 mcg tablet RxNorm: 519164 1 Tablet(s) PO 08/08/2012 12/02/2012 Inactive Cymbalta 60 mg capsule,delayed release RxNorm: 930279 Capsule(s) PO 07/23/2012 10/25/2012 Inactive TAKE ONE CAPSULE BY MOUTH TWICE A DAY Nexium 40 mg capsule,delayed release RxNorm: 330781 Capsule(s) PO 06/20/2012 02/14/2013 Inactive TAKE ONE CAPSULE BY MOUTH EVERY DAY Lipitor 10 mg tablet RxNorm: 964456 Tablet(s) PO 06/20/2012 01/06/2013 Inactive TAKE ONE TABLET BY MOUTH EVERY DAY hydrochlorothiazide 25 mg tablet RxNorm: 049803 1 Tablet(s) PO daily 06/19/2012 08/07/2012 Inactive needs appt alprazolam 0.25 mg tablet RxNorm: 076103 1 Tablet(s) PO QDAY PRN 06/05/2012 07/04/2012 Inactive zolpidem 10 mg tablet RxNorm: 321905 1 Tablet(s) PO HS PRN 06/05/2012 07/04/2012 Inactive zolpidem 10 mg tablet RxNorm: 906275 1 Tablet(s) PO HS PRN 04/16/2012 05/15/2012 Inactive alprazolam 0.25 mg tablet RxNorm: 941266 1 Tablet(s) PO QDAY PRN 04/16/2012 05/15/2012 Inactive Cymbalta 60 mg capsule,delayed release RxNorm: 835845 1 Capsule(s) PO BID 03/22/2012 07/19/2012 Inactive Fioricet 50 mg-325 mg-40 mg tablet RxNorm: 611024 1 Tablet(s) PO Q4 PRN 03/22/2012 11/24/2013 Inactive Bystolic 10 mg tablet RxNorm: 997098 Tablet(s) PO 03/22/2012 10/11/2012 Inactive TAKE ONE TABLET BY MOUTH EVERY DAY potassium chloride ER 10 mEq Tab RxNorm: 213862 1 Tablet(s) PO daily 02/24/2012 03/01/2012 Inactive Lasix 20 mg Tab RxNorm: 779108 1 Tablet(s) PO daily 02/22/2012 02/21/2012 Inactive KCL 10 meq RxNorm: 1 PO daily 02/22/2012 02/21/2012 Inactive potassium chloride ER 10 mEq Tab RxNorm: 302358 1 Tablet(s) PO daily 02/22/2012 02/21/2012 Inactive Lasix 20 mg Tab RxNorm: 963237 1 Tablet(s) PO daily 02/22/2012 02/28/2012 Inactive KCL 10 meq RxNorm: 1 PO daily 02/22/2012 02/22/2012 Inactive potassium chloride ER 10 mEq Tab RxNorm: 300500 1 Tablet(s) PO daily 02/22/2012 02/23/2012 Inactive Rocephin 500 mg Solution for Injection RxNorm: 643401 Inj 02/15/2012 02/15/2012 Inactive Nexium 40 mg capsule,delayed release RxNorm: 467775 1 Capsule(s) PO daily 02/15/2012 No Stop Date Active Bystolic 10 mg Tab RxNorm: 270026 1 Tablet(s) PO daily 02/15/2012 08/12/2012 Inactive alprazolam 0.25 mg tablet RxNorm: 828319 1 Tablet(s) PO QDAY PRN 01/31/2012 02/29/2012 Inactive zolpidem 10 mg tablet RxNorm: 865112 1 Tablet(s) PO HS PRN 01/31/2012 02/29/2012 Inactive alprazolam 0.25 mg Tab RxNorm: 595861 1 Tablet(s) PO QDAY PRN 12/16/2011 01/14/2012 Inactive zolpidem 10 mg Tab RxNorm: 390113 1 Tablet(s) PO HS PRN 12/16/2011 01/14/2012 Inactive Norvasc 10 mg tablet RxNorm: 135415 1 Tablet(s) PO daily 12/02/2011 02/21/2012 Inactive Lipitor 10 mg tablet RxNorm: 326095 1 Tablet(s) PO daily 11/16/2011 05/13/2012 Inactive zolpidem 10 mg Tab RxNorm: 057893 1 Tablet(s) PO HS PRN 10/26/2011 12/15/2011 Inactive alprazolam 0.25 mg Tab RxNorm: 781027 1 Tablet(s) PO QDAY PRN 10/26/2011 12/15/2011 Inactive hydrochlorothiazide 25 mg tablet RxNorm: 719429 1 Tablet(s) PO daily 09/05/2011 03/02/2012 Inactive Synthroid 75 mcg tablet RxNorm: 975517 1 Tablet(s) PO daily 08/01/2011 02/26/2012 Inactive Abilify 2 mg Tab RxNorm: 609223 1 Tablet(s) PO QHS 08/01/2011 09/10/2012 Inactive dicyclomine 10 mg Cap RxNorm: 813954 1 Capsule(s) PO TID 08/01/2011 10/29/2011 Inactive alprazolam 0.25 mg Tab RxNorm: 662592 1 Tablet(s) PO QDAY PRN 07/26/2011 10/25/2011 Inactive Fioricet 50 mg-325 mg-40 mg tablet RxNorm: 875615 1 Tablet(s) PO Q4 PRN 07/14/2011 03/21/2012 Inactive Rocephin 500 mg Solution for Injection RxNorm: 894504 1 Milliliter(s) Inj 07/14/2011 08/01/2011 Inactive Nexium 40 mg Capsule, delayed release RxNorm: 975056 1 Capsule(s) PO daily 05/23/2011 10/06/2011 Inactive Bystolic 10 mg tablet RxNorm: 775414 1 Tablet(s) PO daily 05/23/2011 11/18/2011 Inactive Bystolic 10 mg Tab RxNorm: 591357 1 Tablet(s) PO daily 05/23/2011 05/22/2011 Inactive alprazolam 0.25 mg Tab RxNorm: 717073 1 Tablet(s) PO QDAY PRN 05/23/2011 07/25/2011 Inactive Influenza Virus Vaccine 0.5 mL RxNorm: IM 05/23/2011 05/23/2011 Inactive zolpidem 10 mg Tab RxNorm: 164163 1 Tablet(s) PO HS PRN 05/23/2011 10/25/2011 Inactive Rocephin 500 mg Solution for Injection RxNorm: 205696 1 Milliliter(s) Inj 05/03/2011 07/14/2011 Inactive Kenalog 40 mg/mL Susp for Injection RxNorm: 2791550 1 Milliliter(s) Inj 05/03/2011 07/14/2011 Inactive Bactrim DS 800 mg-160 mg Tab RxNorm: 508560 1 Tablet(s) PO BID 05/03/2011 08/01/2011 Inactive Bystolic 10 mg tablet RxNorm: 466473 1 Tablet(s) PO daily No Start Date Active Flonase 50 mcg/actuation nasal spray,suspension RxNorm: 1289869 2 [place] NASAL daily No Start Date 08/05/2013 Inactive Levaquin 500 mg tablet RxNorm: 676410 Tablet(s) PO No Start Date 04/19/2017 Inactive Duragesic 50 mcg/hr transdermal patch RxNorm: 826375 1 TD q72 hours No Start Date 01/13/2014 Inactive Vesicare 5 mg tablet RxNorm: 603946 1 Tablet(s) PO daily No Start Date 01/06/2015 Inactive Celebrex 200 mg capsule RxNorm: 292361 1 Capsule(s) PO daily No Start Date 04/02/2014 Inactive zolpidem 10 mg Tab RxNorm: 155952 1 Tablet(s) PO HS PRN No Start Date 05/22/2011 Inactive Zyrtec 10 mg Tab RxNorm: 7210088 1 Tablet(s) PO daily No Start Date 08/08/2012 Inactive Flonase 50 mcg/actuation nasal spray,suspension RxNorm: 9287058 1 [place] NASAL daily No Start Date 11/07/2017 Inactive 1 spray to each nostril daily Nexium 40 mg Cap RxNorm: 358715 1 Capsule(s) PO daily No Start Date 05/22/2011 Inactive ketoconazole 2 % Topical Cream RxNorm: 671122 Application TOP BID apply to affected area BID until gone No Start Date 08/30/2012 Inactive aspirin 81 mg tablet RxNorm: 504175 1 Tablet(s) PO daily No Start Date 11/13/2017 Inactive Cymbalta 60 mg capsule,delayed release RxNorm: 463338 1 Capsule(s) PO BID No Start Date 03/21/2012 Inactive alprazolam 0.25 mg Tab RxNorm: 110975 1 Tablet(s) PO QDAY PRN No Start Date 05/22/2011 Inactive baclofen 10 mg tablet RxNorm: 233036 1 Tablet(s) PO TID as needed muscle spasms No Start Date 11/14/2017 Inactive Toprol XL 100 mg 24 hr Tab RxNorm: 540607 1 Tablet(s) PO BID No Start Date 04/25/2011 Inactive Xanax 0.25 mg tablet RxNorm: 737192 1 Tablet(s) PO daily as needed No Start Date 12/27/2015 Inactive Bystolic 10 mg Tab RxNorm: 423780 1 Tablet(s) PO daily No Start Date 05/22/2011 Inactive Fioricet 50 mg-325 mg-40 mg Tab RxNorm: 656115 1 Tablet(s) PO Q4 PRN No Start Date 07/13/2011 Inactive albuterol sulfate HFA 90 mcg/Actuation Aerosol Inhaler RxNorm: 7112651 1 INH Q4 PRN No Start Date 01/06/2015 Inactive Imitrex 50 mg tablet RxNorm: 742220 1 Tablet(s) PO Q8 as needed may repeat x1 dose in 1 hour of inital dose. No Start Date 02/24/2016 Inactive dc fioricet Tessalon 200 mg Cap RxNorm: 410814 1 Capsule(s) PO Q4 PRN No Start Date 02/14/2012 Inactive Zithromax Z-Sergio 250 mg tablet RxNorm: 975787 Tablet(s) PO No Start Date 11/10/2013 Inactive hydrochlorothiazide 25 mg Tab RxNorm: 836832 1 Tablet(s) PO daily No Start Date 09/04/2011 Inactive Fish Oil 1,000 mg Cap RxNorm: 1 Capsule(s) PO TID No Start Date 11/08/2017 Inactive Deplin 15 mg Tab RxNorm: 1 Tablet(s) PO daily No Start Date 08/01/2011 Inactive Brilinta 90 mg tablet RxNorm: 1284896 1 Tablet(s) PO BID No Start Date 11/23/2015 Inactive Synthroid 75 mcg Tab RxNorm: 275982 1 Tablet(s) PO daily No Start Date 07/31/2011 Inactive ciprofloxacin 0.3 % eye drops RxNorm: 717777 2 Drop(s) ophthalmic (eye) Q2H while awake x 2 days, then Q4H x 5 days No Start Date 11/22/2017 Inactive scopolamine 1.5 mg 72 hr Transderm Patch RxNorm: 076962 1 Milligram(s) TD q72 hours No Start Date 11/25/2012 Inactive hydrocodone-acetaminophen 10 mg-325 mg tablet RxNorm: 4274914 1 Tablet(s) PO Q6 PRN No Start Date 08/07/2012 Inactive Phenergan with Codeine Syrup RxNorm: 5-10 Milliliter(s) PO Q6 PRN No Start Date 02/14/2012 Inactive Norvasc 10 mg Tab RxNorm: 487865 1 Tablet(s) PO daily No Start Date 12/01/2011 Inactive Zithromax Z-Sergio 250 mg Tab RxNorm: 608115 Tablet(s) PO No Start Date 08/01/2011 Inactive Medication Administered Medication Codes Instructions Start Date Status ceftriaxone 500 mg solution for injection RxNorm: 8919247 05/28/2018 No longer Active Kenalog 40 mg/mL suspension for injection RxNorm: 4641288 Milliliter 05/28/2018 No longer Active Kenalog 40 mg/mL suspension for injection RxNorm: 5593285 1Milliliter 01/19/2018 No longer Active ceftriaxone 500 mg solution for injection RxNorm: 2653990 500Milligram 01/19/2018 No longer Active Kenalog 40 mg/mL suspension for injection RxNorm: 5402189 1Milliliter 06/27/2017 No longer Active Kenalog 40 mg/mL suspension for injection RxNorm: 3151540 Milliliter 04/20/2017 No longer Active Kenalog 40 mg/mL suspension for injection RxNorm: 9960246 1Milliliter 03/14/2017 No longer Active ceftriaxone 500 mg solution for injection RxNorm: 0643779 1Milliliter 11/28/2016 No longer Active Kenalog 40 mg/mL suspension for injection RxNorm: 9581857 Milliliter 11/07/2016 No longer Active ceftriaxone 500 mg solution for injection RxNorm: 5913392 11/07/2016 No longer Active ceftriaxone 500 mg solution for injection RxNorm: 1016353 12/07/2015 No longer Active ceftriaxone 500 mg solution for injection RxNorm: 5501859 Milliliter 11/24/2015 No longer Active Kenalog 40 mg/mL suspension for injection RxNorm: 7822708 1Milliliter 11/24/2015 No longer Active promethazine 25 mg/mL injection solution RxNorm: 784831 Milliliter 08/27/2015 No longer Active ketorolac 60 mg/2 mL intramuscular solution RxNorm: 065850 Milliliter 08/27/2015 No longer Active ceftriaxone 500 mg solution for injection RxNorm: 2128867 08/10/2015 No longer Active Kenalog 40 mg/mL suspension for injection RxNorm: 5492094 Milliliter 08/10/2015 No longer Active ceftriaxone 500 mg solution for injection RxNorm: 1532131 1Milliliter 07/28/2015 No longer Active Kenalog 40 mg/mL suspension for injection RxNorm: 7333456 Milliliter 03/19/2015 No longer Active Kenalog 40 mg/mL suspension for injection RxNorm: 5274879 Milliliter 06/23/2014 No longer Active ceftriaxone 500 mg solution for injection RxNorm: 601360 06/23/2014 No longer Active Rocephin 500 mg solution for injection RxNorm: 678547 1mlMilliliter 09/24/2013 No longer Active Rocephin 500 mg solution for injection RxNorm: 396518 1Milliliter 09/19/2013 No longer Active Kenalog 40 mg/mL suspension for injection RxNorm: 8506594 1Milliliter 07/10/2013 No longer Active Rocephin 500 mg solution for injection RxNorm: 768774 1 07/10/2013 No longer Active Kenalog 40 mg/mL Susp for Injection RxNorm: 0982706 1Milliliter 09/24/2012 No longer Active Rocephin 500 mg Solution for Injection RxNorm: 717617 02/15/2012 No longer Active Influenza Virus Vaccine [...] Item Item Code Result Date Comp Metabolic Inf808 NA 141 mEq/L 09/12/2017 Comp Metabolic Wqm479 K 4.1 mEq/L 09/12/2017 Comp Metabolic Wbg174 CL 105 mEq/L 09/12/2017 Comp Metabolic Ckc687 CO2 30.0 mEq/L 09/12/2017 Comp Metabolic Vqw860 ANION GAP 10 09/12/2017 Comp Metabolic Xik316 GLUCOSE 97 mg/dL 09/12/2017 Comp Metabolic Zyk494 Creat 0.7 mg/dL 09/12/2017 Comp Metabolic Opw067 eGFR 91 ml/min/1.73m2 09/12/2017 Comp Metabolic Qwy502 BUN 18 mg/dL 09/12/2017 Comp Metabolic Amb525 B/C Ratio 26.5 Ratio 09/12/2017 Comp Metabolic Vzf097 CALCIUM 9.7 mg/dL 09/12/2017 Comp Metabolic Hnt997 ALK PHOS 60 U/L 09/12/2017 Comp Metabolic Nfn095 AST(SGOT) 22 U/L 09/12/2017 Comp Metabolic Gbz982 ALT(SGPT) 23 U/L 09/12/2017 Comp Metabolic Xzr269 BILI T 0.4 mg/dL 09/12/2017 Comp Metabolic Xzc573 ALBUMIN 3.8 g/dL 09/12/2017 Comp Metabolic Vvp115 TPRO 6.4 g/dL 09/12/2017 Comp Metabolic Prn514 GLOB 2.6 g/dL 09/12/2017 Comp Metabolic Vqt814 A/G Ratio 1.5 Ratio 09/12/2017 Comp Metabolic Fxq392 Osmo 283 mOsmo 09/12/2017 Cbc With Differential [...] 30.7 pg 09/12/2017 Cbc With Differential Ord2 [place]% 7.2 % 09/12/2017 Cbc With Differential Ord2 [...] 2.46 K/ul 09/12/2017 Cbc With Differential Ord2 [place] ABS# 0.6 K/ul 09/12/2017 Cbc With Differential [...] 31.4 pg 11/07/2016 Cbc With Differential Ord2 [place]% 6.1 % 11/07/2016 Cbc With Differential Ord2 Eos% 2.8 % 11/07/2016 Cbc With Differential Ord2 MCHC 32.6 pg 11/07/2016 Cbc With Differential Ord2 PLT 231 K/ul 11/07/2016 Cbc With Differential Ord2 Baso% 0.5 % 11/07/2016 Cbc With Differential Ord2 Neut ABS# 5.87 K/ul 11/07/2016 Cbc With Differential Ord2 RDW 13.7 % 11/07/2016 Cbc With Differential Ord2 Lymph ABS# 2.48 K/ul 11/07/2016 Cbc With Differential Ord2 [place] ABS# 0.6 K/ul 11/07/2016 Cbc With Differential Ord2 Eos ABS# 0.3 K/ul 11/07/2016 Cbc With Differential Ord2 Baso ABS# 0.1 K/ul 11/07/2016 Comp Metabolic Ovp736 NA 139 mEq/L 11/07/2016 Comp Metabolic Icr534 K 3.8 mEq/L 11/07/2016 Comp Metabolic Wau308 CL 106 mEq/L 11/07/2016 Comp Metabolic Jpr950 CO2 25.0 mEq/L 11/07/2016 Comp Metabolic Vcy020 ANION GAP 12 11/07/2016 Comp Metabolic Bps386 GLUCOSE 98 mg/dL 11/07/2016 Comp Metabolic Dqg688 Creat 0.8 mg/dL 11/07/2016 Comp Metabolic Ipq724 eGFR 71 ml/min/1.73m2 11/07/2016 Comp Metabolic Sey750 BUN 36 mg/dL 11/07/2016 Comp Metabolic Lqw906 B/C Ratio 42.9 Ratio 11/07/2016 Comp Metabolic Jvz094 CALCIUM 9.9 mg/dL 11/07/2016 Comp Metabolic Iee041 ALK PHOS 57 U/L 11/07/2016 Comp Metabolic Mgd195 AST(SGOT) 24 U/L 11/07/2016 Comp Metabolic Yzf553 ALT(SGPT) 28 U/L 11/07/2016 Comp Metabolic Lac299 BILI T 0.4 mg/dL 11/07/2016 Comp Metabolic Suj196 ALBUMIN 4.2 g/dL 11/07/2016 Comp Metabolic Son962 TPRO 7.0 g/dL 11/07/2016 Comp Metabolic Iap574 GLOB 2.8 g/dL 11/07/2016 Comp Metabolic Kwy730 A/G Ratio 1.5 Ratio 11/07/2016 Comp Metabolic Qdm460 Osmo 286 mOsmo 11/07/2016 Free T4 Iev416 FREE T4 0.75 ng/dL 11/07/2016 Tsh Ord6 hTSH II 3.46 uIU/mL 11/07/2016 Comp Metabolic Pws351 NA 138 mEq/L 05/10/2016 Comp Metabolic Lzx019 K 3.8 mEq/L 05/10/2016 Comp Metabolic Gqp686 CL 102 mEq/L 05/10/2016 Comp Metabolic Dzv247 CO2 29.0 mEq/L 05/10/2016 Comp Metabolic Vjm201 ANION GAP 11 05/10/2016 Comp Metabolic Abz316 GLUCOSE 107 mg/dL 05/10/2016 Comp Metabolic Ddj992 Creat 0.7 mg/dL 05/10/2016 Comp Metabolic Lxz580 eGFR 93 ml/min/1.73m2 05/10/2016 Comp Metabolic Mnu209 BUN 18 mg/dL 05/10/2016 Comp Metabolic Qzb946 B/C Ratio 26.9 Ratio 05/10/2016 Comp Metabolic Jzp438 CALCIUM 9.8 mg/dL 05/10/2016 Comp Metabolic Enu489 ALK PHOS 60 U/L 05/10/2016 Comp Metabolic Tlk084 AST(SGOT) 21 U/L 05/10/2016 Comp Metabolic Tzi712 ALT(SGPT) 23 U/L 05/10/2016 Comp Metabolic Xwg623 BILI T 0.5 mg/dL 05/10/2016 Comp Metabolic Lhr634 ALBUMIN 4.1 g/dL 05/10/2016 Comp Metabolic Rce885 TPRO 6.7 g/dL 05/10/2016 Comp Metabolic Mpl732 GLOB 2.7 g/dL 05/10/2016 Comp Metabolic Lny084 A/G Ratio 1.5 Ratio 05/10/2016 Comp Metabolic Ygu420 Osmo 278 mOsmo 05/10/2016 Lipid Ord30 CHOL 169 mg/dL 05/10/2016 Lipid Ord30 HDL 50.0 mg/dl 05/10/2016 Lipid Ord30 TRIG 161 mg/dL 05/10/2016 Lipid Ord30 LDL 87 mg/dL 05/10/2016 Lipid Ord30 C/HDL 3.4 Ratio 05/10/2016 Comp Metabolic Jwc726 NA 137 mEq/L 06/12/2015 Comp Metabolic Fly117 K 3.8 mEq/L 06/12/2015 Comp Metabolic Kmu431 CL 104 mEq/L 06/12/2015 Comp Metabolic Fvi965 CO2 24.0 mEq/L 06/12/2015 Comp Metabolic Gws316 ANION GAP 13 06/12/2015 Comp Metabolic Woz927 GLUCOSE 92 mg/dL 06/12/2015 Comp Metabolic Xtl406 Creat 0.7 mg/dL 06/12/2015 Comp Metabolic Jhz194 eGFR 87 ml/min/1.73m2 06/12/2015 Comp Metabolic Mxo426 BUN 31 mg/dL 06/12/2015 Comp Metabolic Hws869 B/C Ratio 43.7 Ratio 06/12/2015 Comp Metabolic Yrb214 CALCIUM 10.0 mg/dL 06/12/2015 Comp Metabolic Pao208 ALK PHOS 58 U/L 06/12/2015 Comp Metabolic Stv129 AST(SGOT) 32 U/L 06/12/2015 Comp Metabolic Zsj877 ALT(SGPT) 33 U/L 06/12/2015 Comp Metabolic Vch586 BILI T 0.5 mg/dL 06/12/2015 Comp Metabolic Ttt977 ALBUMIN 4.1 g/dL 06/12/2015 Comp Metabolic Ott454 TPRO 6.6 g/dL 06/12/2015 Comp Metabolic Xrd012 GLOB 2.5 g/dL 06/12/2015 Comp Metabolic Qvq016 A/G Ratio 1.6 Ratio 06/12/2015 Comp Metabolic Dex794 Osmo 280 mOsmo 06/12/2015 Cbc With Differential [...] Differential Ord2 RDW 14.2 % 06/12/2015 CBC 5267769 WBC 8.7 10e9/L 04/30/2013 CBC 2384703 RBC 4.63 10e12/L 04/30/2013 CBC 9768668 HGB 14.1 g/dL 04/30/2013 CBC 1284647 HCT DET 42.2 % 04/30/2013 CBC 2207168 MCV 91.1 fL 04/30/2013 CBC 2249653 MCH 30.5 pg 04/30/2013 CBC 1908915 MCHC 33.4 g/dL 04/30/2013 CBC 5257809 PLT 248 10e9/L 04/30/2013 CBC 8148845 MPV 12.1 fL 04/30/2013 CBC 1611392 LARA % 59.0 % 04/30/2013 CBC 3600083 LY % 27.6 % 04/30/2013 CBC 2125755 MON % 8.0 % 04/30/2013 CBC 4890310 EOS % 4.8 % 04/30/2013 CBC 9094077 BASO % 0.6 % 04/30/2013 CBC 4689497 RDW 13.3 % 04/30/2013 CBC 6893162 ABS LARA 5.13 10e9/L 04/30/2013 CBC 4565545 ABS LYMPH 2.40 10e9/L 04/30/2013 CBC 5388125 ABS MONO 0.70 10e9/L 04/30/2013 CBC 9689087 ABS EOS 0.42 10e9/L 04/30/2013 CBC 0569070 ABS BASO 0.05 10e9/L 04/30/2013 CBC 1588337 RDW-SD 43.1 fL 04/30/2013 TSH 4385858 TSH 4.339 uIU/ML 04/30/2013 A1C HPLC 7167298 A1C HPLC 38989-5 5.6 % 04/30/2013 FREE T4 0592219 FREE T4 0.84 NG/DL 04/30/2013 GFR CALC 5470173 GFR AA >60 ML/MIN 04/30/2013 GFR CALC 5552357 GFR NON-AA >60 ML/MIN 04/30/2013 CHEM 14 6528361 AST 22 U/L 04/30/2013 CHEM 14 9965517 ALT 22 IU/L 04/30/2013 CHEM 14 6207165 BUN 24 MG/DL 04/30/2013 CHEM 14 6222084 ALBUMIN 4.2 GM/DL 04/30/2013 CHEM 14 8078708 CHLORIDE 107 MMOL/L 04/30/2013 CHEM 14 2192401 BILI TOT 0.3 MG/DL 04/30/2013 CHEM 14 6757398 ALK PHOS 88 U/L 04/30/2013 CHEM 14 6091711 SODIUM 141 MMOL/L 04/30/2013 CHEM 14 0307740 CREATININE 0.60 MG/DL 04/30/2013 CHEM 14 8420650 CALCIUM 9.9 MG/DL 04/30/2013 CHEM 14 4730264 POTASSIUM 3.7 MMOL/L 04/30/2013 CHEM 14 4106256 PROT TOT 6.6 GM/DL 04/30/2013 CHEM 14 1440652 GLUCOSE 123 MG/DL 04/30/2013 CHEM 14 1396114 BICARB 25 MMOL/L 04/30/2013 CHEM 14 3141635 ANION GAP 9 MEQ/L 04/30/2013 LIPID GRP HDL TEST 46 MG/DL 04/30/2013 LIPID GRP TRIG 148 MG/DL 04/30/2013 LIPID GRP TEST LDL 75 MG/DL 04/30/2013 LIPID GRP CHOL 151 MG/DL 04/30/2013 LIPID GRP RCHOL/HDL 3.28 RATIO 04/30/2013 TSH 1443781 TSH 3.341 uIU/ML 11/29/2012 CBC 2334161 WBC 8.4 10e9/L 11/29/2012 CBC 3674065 RBC 4.77 10e12/L 11/29/2012 CBC 4246850 HGB 14.9 g/dL 11/29/2012 CBC 6993423 HCT DET 44.2 % 11/29/2012 CBC 3085801 MCV 92.7 fL 11/29/2012 CBC 6973420 MCH 31.2 pg 11/29/2012 CBC 7362878 MCHC 33.7 g/dL 11/29/2012 CBC 6795166 PLT 253 10e9/L 11/29/2012 CBC 5495449 MPV 11.8 fL 11/29/2012 CBC 6134124 LARA % 54.9 % 11/29/2012 CBC 6010061 LY % 29.0 % 11/29/2012 CBC 6746647 MON % 10.4 % 11/29/2012 CBC 8305507 EOS % 5.1 % 11/29/2012 CBC 5208628 BASO % 0.6 % 11/29/2012 CBC 2958624 RDW 13.8 % 11/29/2012 CBC 2915040 ABS LARA 4.61 10e9/L 11/29/2012 CBC 8479798 ABS LYMPH 2.44 10e9/L 11/29/2012 CBC 9235937 ABS MONO 0.87 10e9/L 11/29/2012 CBC 0195438 ABS EOS 0.43 10e9/L 11/29/2012 CBC 0055865 ABS BASO 0.05 10e9/L 11/29/2012 CBC 2286173 RDW-SD 45.9 fL 11/29/2012 CHEM 14 9251784 AST 25 U/L 11/29/2012 CHEM 14 8497712 ALT 26 IU/L 11/29/2012 CHEM 14 9744501 BUN 25 MG/DL 11/29/2012 CHEM 14 3833388 ALBUMIN 4.4 GM/DL 11/29/2012 CHEM 14 9759461 CHLORIDE 106 MMOL/L 11/29/2012 CHEM 14 5721423 BILI TOT 0.4 MG/DL 11/29/2012 CHEM 14 3171114 ALK PHOS 86 U/L 11/29/2012 CHEM 14 6585531 SODIUM 141 MMOL/L 11/29/2012 CHEM 14 4440046 CREATININE 0.80 MG/DL 11/29/2012 CHEM 14 0792608 CALCIUM 9.7 MG/DL 11/29/2012 CHEM 14 9725931 POTASSIUM 4.0 MMOL/L 11/29/2012 CHEM 14 8437123 PROT TOT 6.6 GM/DL 11/29/2012 CHEM 14 5744910 GLUCOSE 112 MG/DL 11/29/2012 CHEM 14 3812745 BICARB 29 MMOL/L 11/29/2012 CHEM 14 2668600 ANION GAP 6 MEQ/L 11/29/2012 A1C HPLC 2986449 A1C HPLC 70591-1 5.5 % 11/29/2012 LIPID GRP HDL TEST 54 MG/DL 11/29/2012 LIPID GRP TRIG 77 MG/DL 11/29/2012 LIPID GRP TEST LDL 78 MG/DL 11/29/2012 LIPID GRP CHOL 147 MG/DL 11/29/2012 LIPID GRP RCHOL/HDL 2.72 RATIO 11/29/2012 FREE T4 0905015 FREE T4 1.23 NG/DL 11/29/2012 GFR CALC 5588867 GFR AA >60 ML/MIN 11/29/2012 GFR CALC 4621506 GFR NON-AA >60 ML/MIN 11/29/2012 CHEM 14 8121506 AST 23 U/L 08/07/2012 CHEM 14 5195844 ALT 34 IU/L 08/07/2012 CHEM 14 4504978 BUN 26 MG/DL 08/07/2012 CHEM 14 9102013 ALBUMIN 4.4 GM/DL 08/07/2012 CHEM 14 6040009 CHLORIDE 105 MMOL/L 08/07/2012 CHEM 14 5495557 BILI TOT 0.5 MG/DL 08/07/2012 CHEM 14 1684944 ALK PHOS 79 U/L 08/07/2012 CHEM 14 9513829 SODIUM 140 MMOL/L 08/07/2012 CHEM 14 2961237 CREATININE 0.71 MG/DL 08/07/2012 CHEM 14 7392903 CALCIUM 10.4 MG/DL 08/07/2012 CHEM 14 9562552 POTASSIUM 3.8 MMOL/L 08/07/2012 CHEM 14 7654710 PROT TOT 6.8 GM/DL 08/07/2012 CHEM 14 4652799 GLUCOSE 104 MG/DL 08/07/2012 CHEM 14 7795079 BICARB 27 MMOL/L 08/07/2012 CHEM 14 4996370 ANION GAP 8 MEQ/L 08/07/2012 A1C HPLC 7731847 A1C HPLC 10143-7 5.4 % 08/07/2012 FREE T4 4759677 FREE T4 1.11 NG/DL 08/07/2012 LIPID GRP HDL TEST 50 MG/DL 08/07/2012 LIPID GRP TRIG 127 MG/DL 08/07/2012 LIPID GRP TEST LDL 93 MG/DL 08/07/2012 LIPID GRP CHOL 168 MG/DL 08/07/2012 LIPID GRP RCHOL/HDL 3.36 RATIO 08/07/2012 CBC 8415781 WBC 8.7 10e9/L 08/07/2012 CBC 0232895 RBC 4.67 10e12/L 08/07/2012 CBC 3417847 HGB 14.4 g/dL 08/07/2012 CBC 0457150 HCT DET 42.8 % 08/07/2012 CBC 4432282 MCV 91.6 fL 08/07/2012 CBC 5326919 MCH 30.8 pg 08/07/2012 CBC 3852909 MCHC 33.6 g/dL 08/07/2012 CBC 8638882 PLT 271 10e9/L 08/07/2012 CBC 5727418 MPV 12.3 fL 08/07/2012 CBC 0844171 LARA % 50.6 % 08/07/2012 CBC 5843598 LY % 34.9 % 08/07/2012 CBC 5187763 MON % 9.1 % 08/07/2012 CBC 2548071 EOS % 5.1 % 08/07/2012 CBC 4025577 BASO % 0.3 % 08/07/2012 CBC 5793814 RDW 13.6 % 08/07/2012 CBC 5398027 ABS LARA 4.40 10e9/L 08/07/2012 CBC 2709568 ABS LYMPH 3.04 10e9/L 08/07/2012 CBC 6089457 ABS MONO 0.79 10e9/L 08/07/2012 CBC 8264971 ABS EOS 0.44 10e9/L 08/07/2012 CBC 6931130 ABS BASO 0.03 10e9/L 08/07/2012 CBC 4972373 RDW-SD 44.1 fL 08/07/2012 TSH 8452184 TSH 7.419 uIU/ML 08/07/2012 GFR CALC 9724782 GFR AA >60 ML/MIN 08/07/2012 GFR CALC 3807227 GFR NON-AA >60 ML/MIN 08/07/2012 A1C HPLC 6588484 A1C HPLC 62587-4 5.3 % 02/21/2012 TSH 7242483 TSH 0.832 uIU/ML 02/16/2012 FREE T4 0822449 FREE T4 1.04 NG/DL 02/16/2012 GFR CALC 2877253 GFR AA >60 ML/MIN 02/16/2012 GFR CALC 4301354 GFR NON-AA >60 ML/MIN 02/16/2012 BMP 8459064 GLUCOSE 112 MG/DL 02/16/2012 BMP 3932688 CREATININE 0.65 MG/DL 02/16/2012 BMP 1456727 BUN 17 MG/DL 02/16/2012 BMP 9697649 SODIUM 144 MMOL/L 02/16/2012 BMP 1029533 POTASSIUM 4.0 MMOL/L 02/16/2012 BMP 5241638 CHLORIDE 107 MMOL/L 02/16/2012 BMP 9917033 BICARB 29 MMOL/L 02/16/2012 BMP 6317108 ANION GAP 8 MEQ/L 02/16/2012 BMP 4608487 CALCIUM 9.5 MG/DL 02/16/2012 CBC 4551253 WBC 7.1 10e9/L 02/16/2012 CBC 5771069 RBC 4.47 10e12/L 02/16/2012 CBC 3023783 HGB 13.5 g/dL 02/16/2012 CBC 6934345 HCT DET 40.7 % 02/16/2012 CBC 0886613 MCV 91.1 fL 02/16/2012 CBC 4432979 MCH 30.2 pg 02/16/2012 CBC 2625452 MCHC 33.2 g/dL 02/16/2012 CBC 4126795 PLT 238 10e9/L 02/16/2012 CBC 6965533 MPV 11.4 fL 02/16/2012 CBC 1816428 LARA % 55.7 % 02/16/2012 CBC 3654255 LY % 29.6 % 02/16/2012 CBC 7119951 MON % 9.2 % 02/16/2012 CBC 8639864 EOS % 5.1 % 02/16/2012 CBC 2921578 BASO % 0.4 % 02/16/2012 CBC 3326600 RDW 13.0 % 02/16/2012 CBC 3401792 ABS LARA 3.95 10e9/L 02/16/2012 CBC 6969263 ABS LYMPH 2.10 10e9/L 02/16/2012 CBC 3326315 ABS MONO 0.65 10e9/L 02/16/2012 CBC 0092690 ABS EOS 0.36 10e9/L 02/16/2012 CBC 3691751 ABS BASO 0.03 10e9/L 02/16/2012 CBC 5298558 RDW-SD 42.4 fL 02/16/2012 URINALYSIS NONAUTO W/O SCOPE 41167 Specific [place] 1.015 DateTime(Free Text in Aprima) URINALYSIS NONAUTO W/O SCOPE 60582 PH 7 DateTime(Free Text in Aprima) URINALYSIS NONAUTO W/O SCOPE 92162 GLUCOSE neg DateTime(Free Text in Aprima) URINALYSIS NONAUTO W/O SCOPE 89903 Protein 1+ DateTime(Free Text in Aprima) URINALYSIS NONAUTO W/O SCOPE 84455 Blood neg DateTime(Free Text in Aprima) URINALYSIS NONAUTO W/O SCOPE 38560 Bilirubin neg DateTime(Free Text in Aprima) URINALYSIS NONAUTO W/O SCOPE 99373 Ketones neg DateTime(Free Text in Aprima) URINALYSIS NONAUTO W/O SCOPE 62475 Urobilinogen neg DateTime(Free Text in Aprima) URINALYSIS NONAUTO W/O SCOPE 19212 Nitrite postive DateTime(Free Text in Aprima) URINALYSIS NONAUTO W/O SCOPE 16014 Leukocytes 3+ DateTime(Free Text in Aprima) URINALYSIS NONAUTO W/O SCOPE 03103 Specific [place] 1.030 DateTime(Free Text in Aprima) URINALYSIS NONAUTO W/O SCOPE 82494 PH 6 DateTime(Free Text in Aprima) URINALYSIS NONAUTO W/O SCOPE 89354 GLUCOSE neg DateTime(Free Text in Aprima) URINALYSIS NONAUTO W/O SCOPE 73914 Protein neg DateTime(Free Text in Aprima) URINALYSIS NONAUTO W/O SCOPE 73137 Blood neg DateTime(Free Text in Aprima) URINALYSIS NONAUTO W/O SCOPE 60113 Bilirubin neg DateTime(Free Text in Aprima) URINALYSIS NONAUTO W/O SCOPE 38545 Ketones neg DateTime(Free Text in Aprima) URINALYSIS NONAUTO W/O SCOPE 59592 Urobilinogen neg DateTime(Free Text in Aprima) URINALYSIS NONAUTO W/O SCOPE 01736 Nitrite neg DateTime(Free Text in Aprima) URINALYSIS NONAUTO W/O SCOPE 32288 Leukocytes trace DateTime(Free Text in Aprima) URINALYSIS NONAUTO W/O SCOPE 72405 Specific [place] 1.005 DateTime(Free Text in Aprima) URINALYSIS NONAUTO W/O SCOPE 93503 PH 5 DateTime(Free Text in Aprima) URINALYSIS NONAUTO W/O SCOPE 21064 GLUCOSE neg DateTime(Free Text in Aprima) URINALYSIS NONAUTO W/O SCOPE 48665 Protein neg DateTime(Free Text in Aprima) URINALYSIS NONAUTO W/O SCOPE 08889 Blood neg DateTime(Free Text in Aprima) URINALYSIS NONAUTO W/O SCOPE 12321 Bilirubin neg DateTime(Free Text in Aprima) URINALYSIS NONAUTO W/O SCOPE 35091 Ketones neg DateTime(Free Text in Aprima) URINALYSIS NONAUTO W/O SCOPE 14507 Urobilinogen neg DateTime(Free Text in Aprima) URINALYSIS NONAUTO W/O SCOPE 91623 Nitrite neg DateTime(Free Text in Aprima) URINALYSIS NONAUTO W/O SCOPE 07177 Leukocytes neg DateTime(Free Text in Aprima) UA 90760 Specific [place] 1.030 DateTime(Free Text in Aprima) UA 90796 PH 5 DateTime(Free Text in Aprima) UA 94733 GLUCOSE neg DateTime(Free Text in Aprima) UA 21365 Protein trace DateTime(Free Text in Aprima) UA 20890 Blood large DateTime(Free Text in ) UA 95797 Bilirubin neg DateTime(Free Text in ) UA 49396 Ketones neg DateTime(Free Text in ) UA 02967 Urobilinogen neg DateTime(Free Text in Aprima) UA 48395 Nitrite neg DateTime(Free Text in Aprima) UA 67852 Leukocytes large DateTime(Free Text in ) Review [...] Codes Date URINALYSIS NONAUTO W/O SCOPE CPT-4: 04105 07/10/2018 TRIAMCINOLONE ACET INJ NOS CPT-4: J3301 05/28/2018 ROCEPHIN, PER 250 MG CPT- 4: J0696 05/28/2018 ROCEPHIN, PER 250 MG CPT- 4: J0696 01/19/2018 TRIAMCINOLONE ACET INJ NOS CPT-4: J3301 01/19/2018 PPPS, SUBSEQ VISIT CPT- 4: G0439 11/23/2017 TRIAMCINOLONE ACET INJ NOS CPT-4: J3301 06/27/2017 THER/PROPH/DIAG INJ SC/IM CPT-4: 68814 04/20/2017 TRIAMCINOLONE ACET INJ NOS CPT-4: J3301 04/20/2017 TRIAMCINOLONE ACET INJ NOS CPT-4: J3301 03/14/2017 ROCEPHIN, PER 250 MG CPT- 4: J0696 03/14/2017 DESTRUCT PREMALG LESION CPT-4: 46217 12/05/2016 DESTRUCT PREMALG LES 2-14 CPT-4: 95904 12/05/2016 URINALYSIS NONAUTO W/O SCOPE CPT-4: 51229 11/28/2016 ROCEPHIN, PER 250 MG CPT- 4: J0696 11/28/2016 PPPS, SUBSEQ VISIT CPT- 4: G0439 11/07/2016 THER/PROPH/DIAG INJ SC/IM CPT-4: 85625 11/07/2016 TRIAMCINOLONE ACET INJ NOS CPT-4: J3301 11/07/2016 ROCEPHIN, PER 250 MG CPT- 4: J0696 11/07/2016 THER/PROPH/DIAG INJ SC/IM CPT-4: 54865 08/15/2016 TRIAMCINOLONE ACET INJ NOS CPT-4: J3301 08/15/2016 ROCEPHIN, PER 250 MG CPT- 4: J0696 08/15/2016 URINALYSIS NONAUTO W/O SCOPE CPT-4: 90723 05/05/2016 ROCEPHIN, PER 250 MG CPT- 4: J0696 12/07/2015 TRIAMCINOLONE ACET INJ NOS CPT-4: J3301 11/24/2015 ROCEPHIN, PER 250 MG CPT- 4: J0696 11/24/2015 THER/PROPH/DIAG INJ SC/IM CPT-4: 44261 11/24/2015 THER/PROPH/DIAG INJ SC/IM CPT-4: 18951 08/27/2015 KETOROLAC TROMETHAMINE INJ CPT-4: J1885 08/27/2015 PROMETHAZINE HCL INJECTION CPT-4: J2550 08/27/2015 THER/PROPH/DIAG INJ SC/IM CPT-4: 85835 08/10/2015 TRIAMCINOLONE ACET INJ NOS CPT-4: J3301 08/10/2015 ROCEPHIN, PER 250 MG CPT- 4: J0696 08/10/2015 C WOUN RTS (CULTURE OTHR SPECIMN AEROBIC) CPT-4: 45465 07/28/2015 THER/PROPH/DIAG INJ SC/IM CPT-4: 72756 03/19/2015 TRIAMCINOLONE ACET INJ NOS CPT-4: J3301 03/19/2015 ROCEPHIN, PER 250 MG CPT- 4: J0696 06/23/2014 TRIAMCINOLONE ACET INJ NOS CPT-4: J3301 06/23/2014 INJ TRIGGER POINT 1/2 MUSCL CPT-4: 72181 06/05/2014 URINALYSIS NONAUTO W/O SCOPE CPT-4: 69534 02/11/2014 URINALYSIS NONAUTO W/O SCOPE CPT-4: 08426 10/15/2013 ROCEPHIN, PER 250 MG CPT- 4: J0696 09/24/2013 THER/PROPH/DIAG INJ SC/IM CPT-4: 28412 09/19/2013 ROCEPHIN, PER 250 MG CPT- 4: J0696 09/19/2013 PRESCRIP TRANSMIT VIA ERX SY CPT-4: G8553 08/05/2013 ROCEPHIN, PER 250 MG CPT- 4: J0696 07/10/2013 THER/PROPH/DIAG INJ SC/IM CPT-4: 33905 07/10/2013 TRIAMCINOLONE ACET INJ NOS CPT-4: J3301 07/10/2013 PRESCRIP TRANSMIT VIA ERX SY CPT-4: G8553 07/10/2013 55590 EST. PATIENT, LEVEL III CPT-4: 07261 06/03/2013 PRESCRIP TRANSMIT VIA ERX SY CPT-4: G8553 06/03/2013 PRESCRIP TRANSMIT VIA ERX SY CPT-4: G8553 05/07/2013 ROUTINE VENIPUNCTURE CPT- 4: 07163 04/30/2013 ROUTINE VENIPUNCTURE CPT- 4: 72787 11/29/2012 TRIAMCINOLONE ACET INJ NOS CPT-4: J3301 09/24/2012 THER/PROPH/DIAG INJ SC/IM CPT-4: 84771 09/24/2012 URINALYSIS NONAUTO W/O SCOPE CPT-4: 13386 09/24/2012 PRESCRIP TRANSMIT VIA ERX SY CPT-4: G8553 09/24/2012 PRESCRIP TRANSMIT VIA ERX SY CPT-4: G8553 09/10/2012 PRESCRIP TRANSMIT VIA ERX SY CPT-4: G8553 08/08/2012 ROUTINE VENIPUNCTURE CPT- 4: 43013 08/07/2012 ROUTINE VENIPUNCTURE CPT- 4: 14439 02/16/2012 URINALYSIS NONAUTO W/O SCOPE CPT-4: 11139 02/15/2012 ROCEPHIN, PER 250 MG CPT- 4: J0696 02/15/2012 PRESCRIP TRANSMIT VIA ERX SY CPT-4: G8553 02/15/2012 ROUTINE VENIPUNCTURE CPT- 4: 90267 11/08/2011 ROCEPHIN, PER 250 MG CPT- 4: J0696 07/14/2011 THER/PROPH/DIAG INJ SC/IM CPT-4: 29176 07/14/2011 Influenza Virus Vaccine, Split Virus, >3 Yrs, IM CPT-4: 93293 05/23/2011 IMMUNIZATION ADMIN CPT- 4: 74129 05/23/2011 THER/PROPH/DIAG INJ SC/IM CPT-4: 19267 05/03/2011 ROCEPHIN, PER 250 MG CPT- 4: J0696 05/03/2011 TRIAMCINOLONE ACET INJ NOS CPT-4: J3301 05/03/2011 Vital Signs Date Vital 07/16/2018 Blood Pressure 1: 142/80 Code: 8480-6 BMI: 31.1 Code: 43840-2 Heart Rate 1: 78 bpm Height: 4'11" SpO2: 98% Weight: 154 lbs 07/10/2018 Blood Pressure 1: 156/82 Code: 8480-6 BMI: 31.1 Code: 07595-5 Heart Rate 1: 63 bpm Height: 4'11" SpO2: 99% Weight: 154 lbs 05/28/2018 Blood Pressure 1: 142/80 Code: 8480-6 Heart Rate 1: 82 bpm Height: SpO2: 97% Temperature: 35.9 (C) / 96.6 (F) Weight: 02/07/2018 Height: Weight: 01/19/2018 Blood Pressure 1: 128/76 Code: 8480-6 BMI: 31.2 Code: 15642-0 Heart Rate 1: 71 bpm Height: 4'11" SpO2: 96% Temperature: 36.5 (C) / 97.7 (F) Weight: 154 lbs 8 oz 11/23/2017 Blood Pressure 1: 146/80 Code: 8480-6 BMI: 31.7 Code: 44641-7 Heart Rate 1: 64 bpm Height: 4'11" SpO2: 97% Waist Measure (cm): 89 cm Weight: 157 lbs 09/12/2017 Blood Pressure 1: 140/86 Code: 8480-6 Heart Rate 1: 62 bpm SpO2: 96% Temperature: 36.6 (C) / 97.8 (F) Weight: 153 lbs 07/25/2017 Blood Pressure 1: 140/72 Code: 8480-6 BMI: 31.3 Code: 79538-7 Heart Rate 1: 76 bpm Height: 4'11" SpO2: 97% Temperature: 37.2 (C) / 99.0 (F) Weight: 155 lbs 06/27/2017 Blood Pressure 1: 144/84 Code: 8480-6 BMI: 31.1 Code: 80254-1 Heart Rate 1: 63 bpm Height: 4'11" SpO2: 99% Temperature: 36.4 (C) / 97.6 (F) Weight: 154 lbs 05/08/2017 Blood Pressure 1: 142/86 Code: 8480-6 BMI: 30.9 Code: 81145-5 Height: 4'11" Temperature: 36.3 (C) / 97.4 (F) Weight: 153 lbs 03/14/2017 Blood Pressure 1: 146/82 Code: 8480-6 BMI: 30.9 Code: 27425-9 Heart Rate 1: 64 bpm Height: 4'11" SpO2: 94% Weight: 153 lbs 02/20/2017 Blood Pressure 1: 142/80 Code: 8480-6 BMI: 30.9 Code: 71420-8 Heart Rate 1: 75 bpm Height: 4'11" SpO2: 97% Weight: 153 lbs 02/06/2017 Blood Pressure 1: 138/90 Code: 8480-6 BMI: 31.5 Code: 72700-6 Heart Rate 1: 61 bpm Height: 4'11" SpO2: 98% Weight: 156 lbs 12/05/2016 Blood Pressure 1: 122/72 Code: 8480-6 Heart Rate 1: 59 bpm Height: 4'11" SpO2: 98% Weight: 11/28/2016 Blood Pressure 1: 154/86 Code: 8480-6 BMI: 31.3 Code: 77561-5 Heart Rate 1: 64 bpm Height: 4'11" SpO2: 94% Temperature: 36.2 (C) / 97.2 (F) Weight: 155 lbs 11/07/2016 Blood Pressure 1: 128/64 Code: 8480-6 BMI: 31.5 Code: 19382-7 Heart Rate 1: 59 bpm Height: 4'11" SpO2: 97% Weight: 156 lbs 08/15/2016 Blood Pressure 1: 110/62 Code: 8480-6 BMI: 31.5 Code: 15603-3 Heart Rate 1: 76 bpm Height: 4'11" SpO2: 97% Weight: 156 lbs 06/07/2016 Blood Pressure 1: 120/80 Code: 8480-6 BMI: 32.9 Code: 45501-2 Heart Rate 1: 63 bpm Height: 4'11" SpO2: 93% Temperature: 36.5 (C) / 97.7 (F) Weight: 163 lbs 03/15/2016 Blood Pressure 1: 90/42 Code: 8480-6 Heart Rate 1: 65 bpm SpO2: 94% 03/14/2016 Blood Pressure 1: 188/110 Code: 8480-6 Heart Rate 1: 68 bpm SpO2: 96% 02/22/2016 Blood Pressure 1: 158/80 Code: 8480-6 BMI: 32.7 Code: 52729-5 Heart Rate 1: 71 bpm Height: 4'11" SpO2: 95% Weight: 162 lbs 12/07/2015 Blood Pressure 1: 140/88 Code: 8480-6 BMI: 32.9 Code: 61920-3 Heart Rate 1: 99 bpm Height: 4'11" SpO2: 94% Temperature: 35.9 (C) / 96.6 (F) Weight: 163 lbs 11/24/2015 Blood Pressure 1: 144/78 Code: 8480-6 BMI: 33.7 Code: 25079-8 Heart Rate 1: 60 bpm Height: 4'11" SpO2: 98% Temperature: 36.6 (C) / 97.9 (F) Weight: 167 lbs 08/27/2015 Blood Pressure 1: 164/82 Code: 8480-6 BMI: 32.3 Code: 30537-7 Heart Rate 1: 60 bpm Height: 4'11" SpO2: 93% Weight: 160 lbs 08/10/2015 Blood Pressure 1: 130/60 Code: 8480-6 BMI: 32.5 Code: 69235-5 Heart Rate 1: 64 bpm Height: 4'11" SpO2: 97% Weight: 161 lbs 07/28/2015 Blood Pressure 1: 124/68 Code: 8480-6 BMI: 32.5 Code: 23766-8 Heart Rate 1: 69 bpm Height: 4'11" SpO2: 97% Weight: 161 lbs 06/11/2015 Blood Pressure 1: 148/80 Code: 8480-6 BMI: 32.9 Code: 15105-4 Heart Rate 1: 70 bpm Height: 4'11" SpO2: 94% Weight: 163 lbs 03/19/2015 Blood Pressure 1: 150/102 Code: 8480-6 Blood Pressure 2: 152/92 Code: 8480-6 BMI: 32.5 Code: 85931-4 Heart Rate 1: 71 bpm Height: 4'11" SpO2: 96% Weight: 161 lbs 01/07/2015 Blood Pressure 1: 126/84 Code: 8480-6 Heart Rate 1: 80 bpm Height: 4'11" 09/23/2014 Blood Pressure 1: 112/72 Code: 8480-6 BMI: 33.9 Code: 71167-2 Heart Rate 1: 72 bpm Height: 4'11" Weight: 168 lbs 08/05/2014 Blood Pressure 1: 140/86 Code: 8480-6 BMI: 33.3 Code: 04312-4 Height: 4'11" Weight: 165 lbs 06/23/2014 Blood Pressure 1: 132/70 Code: 8480-6 BMI: 32.9 Code: 59219-6 Heart Rate 1: 58 bpm Height: 4'11" Temperature: 36.0 (C) / 96.8 (F) Weight: 163 lbs 06/05/2014 Blood Pressure 1: 121/85 Code: 8480-6 BMI: 34.3 Code: 73335-3 Height: 4'11" Weight: 170 lbs 04/03/2014 Blood Pressure 1: 128/80 Code: 8480-6 Heart Rate 1: 88 bpm Weight: 167 lbs 03/07/2014 Blood Pressure 1: 122/82 Code: 8480-6 BMI: 33.9 Code: 05310-0 Heart Rate 1: 68 bpm Height: 4'11" Weight: 168 lbs 11/21/2013 Blood Pressure 1: 100/58 Code: 8480-6 BMI: 33.7 Code: 56710-5 Heart Rate 1: 64 bpm Height: 4'11" Weight: 167 lbs 09/24/2013 Blood Pressure 1: 148/88 Code: 8480-6 Heart Rate 1: 68 bpm Weight: 09/19/2013 Blood Pressure 1: 120/80 Code: 8480-6 BMI: 33.9 Code: 53054-4 Heart Rate 1: 80 bpm Height: 4'11" Temperature: 36.9 (C) / 98.5 (F) Weight: 168 lbs 08/05/2013 Blood Pressure 1: 128/80 Code: 8480-6 BMI: 34.3 Code: 28642-4 Heart Rate 1: 64 bpm Height: 4'11" Temperature: 36.2 (C) / 97.2 (F) Weight: 170 lbs 07/10/2013 Blood Pressure 1: 120/84 Code: 8480-6 BMI: 36.0 Code: 53805-6 Heart Rate 1: 90 bpm Height: 4'11" SpO2: 97% Temperature: 36.8 (C) / 98.2 (F) Weight: 178 lbs 06/03/2013 Blood Pressure 1: 136/94 Code: 8480-6 BMI: 34.7 Code: 62795-1 Heart Rate 1: 68 bpm Height: 4'11" Temperature: 36.7 (C) / 98.0 (F) Weight: 172 lbs 05/13/2013 Blood Pressure 1: 132/90 Code: 8480-6 Heart Rate 1: 68 bpm 05/07/2013 Blood Pressure 1: 168/100 Code: 8480-6 BMI: 34.3 Code: 06444-6 Heart Rate 1: 76 bpm Height: 4'11" Weight: 170 lbs 12/03/2012 Blood Pressure 1: 142/78 Code: 8480-6 BMI: 33.5 Code: 04078-4 Heart Rate 1: 76 bpm Height: 4'11" Weight: 166 lbs 09/24/2012 Blood Pressure 1: 116/70 Code: 8480-6 Heart Rate 1: 68 bpm Respiratory Rate: 16 bpm Temperature: 36.9 (C) / 98.4 (F) Weight: 162 lbs 09/10/2012 Blood Pressure 1: 116/80 Code: 8480-6 BMI: 33.7 Code: 45497-3 Heart Rate 1: 76 bpm Height: 4'11" [...] 1: 149/85 Code: 8480-6 BMI: 32.9 Code: 94673-2 Heart Rate 1: 79 bpm Height: 4'11" Weight: 164 lbs 05/03/2011 Blood Pressure 1: 122/79 Code: 8480-6 BMI: 30.8 Code: 32724-0 Heart Rate 1: 72 bpm Height: 5'1" Weight: 163 lbs 04/25/2011 Blood Pressure 1: 137/84 Code: 8480-6 BMI: 31.0 Code: 21346-5 Heart Rate 1: 63 bpm Height: 5'1" [...] days ago 02/15/2012 while visiting mother in [place] had uti and was put on pyridum [...] Quality chronic 08/01/2011 states went shopping on [employer] over night without taking any of medications and was in bed 2 days afterwards. states b/p was erratic diarrhea Quality acute 08/01/2011 over weekend. states irritable bowel has been acting up past several weeks depression Quality worsening 08/01/2011 stopped deplin, too expensive. wants something to go along with cyal[employer]toalta hypertension Onset of Symptom during adulthood 08/01/2011 None hypertension Blood Pressure Values patient checking blood pressure at home - did not bring in readings 08/01/2011 155/126 right [employer] after shopping all night hypertension Triggers stress [...] data Encounters Encounter Performer Location Codes Date 04598 EST. PATIENT, LEVEL III Diagnosis: Essential (primary) hypertension[ICD10: I10] Diagnosis: Generalized anxiety disorder[ICD10: F41.1] [facility] CPT-4: 77688 07/16/2018 ([id number]) 02897 EST. PATIENT, LEVEL III Diagnosis: Acute recurrent maxillary sinusitis[ICD10: J01.01] Diagnosis: Frequency of micturition[ICD10: R35.0] Diagnosis: Low back pain[ICD10: M54.5] Shahida Goldman MD, [facility] CPT-4: 34528 07/10/2018 ([id number]) 27017 EST. PATIENT, LEVEL III Diagnosis: Acute recurrent maxillary sinusitis[ICD10: J01.01] Shahida Goldman MD, [facility] CPT-4: 43594 05/28/2018 ([id number]) Miscellaneous no charge Diagnosis: Laceration without foreign body, left lower leg, subsequent encounter[ICD10: S81.812D] Diagnosis: Laceration without foreign body, right lower leg, subsequent encounter[ICD10: S81.811D] Isabelle Goldman MD, [facility] CPT-4: 57025 02/08/2018 33169 EST. PATIENT, LEVEL III Diagnosis: Cellulitis of left lower limb[ICD10: L03.116] Diagnosis: Cellulitis of right lower limb[ICD10: L03.115] Diagnosis: Laceration without foreign body, left lower leg, initial encounter[ICD10: S81.812A] Diagnosis: Laceration without foreign body, right lower leg, initial encounter[ICD10: S81.811A] Isabelle Goldman MD, [facility] CPT-4: 59432 02/07/2018 ([id number]) 95736 EST. PATIENT, LEVEL IV Diagnosis: Primary generalized (osteo)arthritis[ICD10: M15.0] Diagnosis: Acute recurrent maxillary sinusitis[ICD10: J01.01] Diagnosis: Low back pain[ICD10: M54.5] Diagnosis: Other allergic rhinitis[ICD10: J30.89] Diagnosis: Obstructive sleep apnea (adult) (pediatric)[ICD10: G47.33] Shahida Goldman MD, [facility] CPT-4: 35466 01/19/2018 69649 EST. PATIENT, LEVEL IV Diagnosis: Diarrhea, unspecified[ICD10: R19.7] Diagnosis: Generalized abdominal pain[ICD10: R10.84] Diagnosis: Other allergic rhinitis[ICD10: J30.89] Diagnosis: Other acute sinusitis[ICD10: J01.80] Isabelle Goldman MD, [facility] CPT- 4: 87371 09/12/2017 75780 EST. PATIENT, LEVEL III Diagnosis: Acute laryngopharyngitis[ICD10: J06.0] Diagnosis: Other allergic rhinitis[ICD10: J30.89] Diagnosis: Cough[ICD10: R05] Diagnosis: Wheezing[ICD10: R06.2] Isabelle Goldman MD, [facility] CPT-4: 98972 07/25/2017 ([id number]) 38762 EST. PATIENT, LEVEL IV Diagnosis: Acute recurrent maxillary sinusitis[ICD10: J01.01] Diagnosis: Cervicalgia[ICD10: M54.2] Diagnosis: Diarrhea, unspecified[ICD10: R19.7] Shahida Goldman MD, [facility] CPT-4: 18143 06/27/2017 ([id number]) 20758 EST. PATIENT, LEVEL III Diagnosis: Chronic maxillary sinusitis[ICD10: J32.0] Diagnosis: Gastro-esophageal reflux disease without esophagitis[ICD10: K21.9] Shahida Goldman MD, [facility] CPT-4: 44791 05/08/2017 ([id number]) 55344 EST. PATIENT, LEVEL III Diagnosis: Acute recurrent maxillary sinusitis[ICD10: J01.01] Shahida Goldman MD, [facility] CPT-4: 33369 03/14/2017 00261 EST. PATIENT, LEVEL IV Diagnosis: Epigastric pain[ICD10: R10.13] Diagnosis: Left upper quadrant pain[ICD10: R10.12] Diagnosis: Left lower quadrant pain[ICD10: R10.32] Isabelle Goldman MD, [facility] CPT-4: 96829 02/20/2017 ([id number]) 61546 EST. PATIENT, LEVEL IV Diagnosis: Generalized anxiety disorder[ICD10: F41.1] Diagnosis: Major depressive disorder, recurrent, moderate[ICD10: F33.1] Diagnosis: Left upper quadrant pain[ICD10: R10.12] Diagnosis: Epigastric pain[ICD10: R10.13] Diagnosis: Actinic keratosis[ICD10: L57.0] Melba Goldman MD, [facility] CPT-4: 60874 02/06/2017 ([id number]) 61954 EST. PATIENT, LEVEL III Diagnosis: Actinic keratosis[ICD10: L57.0] Diagnosis: Major depressive disorder, recurrent, moderate[ICD10: F33.1] Melba Goldman MD, [facility] CPT-4: 97891 12/05/2016 ([id number]) 19332 EST. PATIENT, LEVEL III Diagnosis: Acute recurrent maxillary sinusitis[ICD10: J01.01] Diagnosis: Dysuria[ICD10: R30.0] Shahida Goldman MD, [facility] CPT-4: 81081 11/28/2016 80320 EST. PATIENT, LEVEL IV Diagnosis: Other acute sinusitis[ICD10: J01.80] Diagnosis: Acute laryngopharyngitis[ICD10: J06.0] Diagnosis: Other allergic rhinitis[ICD10: J30.89] Isabelle Goldman MD, [facility] CPT- 4: 30877 08/15/2016 ([id number]) 57581 EST. PATIENT, LEVEL III Diagnosis: Acute recurrent maxillary sinusitis[ICD10: J01.01] Diagnosis: Low back pain[ICD10: M54.5] Shahida Goldman MD, [facility] CPT-4: 31067 06/07/2016 ([id number]) Miscellaneous no charge Diagnosis: Essential (primary) hypertension[ICD10: I10] Shahida Goldman MD, [facility] CPT-4: 96794 03/15/2016 49778 EST. PATIENT, LEVEL IV Diagnosis: Essential (primary) hypertension[ICD10: I10] Diagnosis: Headache[ICD10: R51] Diagnosis: Generalized anxiety disorder[ICD10: F41.1] Shahida Goldman MD, [facility] CPT-4: 95815 03/14/2016 10992 EST. PATIENT, LEVEL III Diagnosis: Laceration without foreign body, left lower leg, initial encounter[ICD10: S81.812A] Isabelle Goldman MD, [facility] CPT-4: 91259 02/22/2016 ([id number]) 37733 EST. PATIENT, LEVEL III Diagnosis: Acute recurrent maxillary sinusitis[ICD10: J01.01] Diagnosis: Cough[ICD10: R05] Diagnosis: Allergic rhinitis due to pollen[ICD10: J30.1] Shahida Goldman MD, [facility] CPT-4: 70808 12/07/2015 ([id number]) 50247 EST. PATIENT, LEVEL IV Diagnosis: Essential (primary) hypertension[ICD10: I10] Diagnosis: Acute recurrent maxillary sinusitis[ICD10: J01.01] Diagnosis: Generalized anxiety disorder[ICD10: F41.1] Diagnosis: Cervicalgia[ICD10: M54.2] Diagnosis: Generalized intra-abdominal and pelvic swelling, mass and lump[ICD10: R19.07] Melba Goldman MD, [facility] CPT-4: 33442 11/24/2015 05567 EST. PATIENT, LEVEL III Diagnosis: Other migraine, intractable, without status migrainosus[ICD10: G43.819] Isabelle Goldman MD, [facility] CPT-4: 95120 08/27/2015 92637 EST. PATIENT, LEVEL III Diagnosis: Acute recurrent maxillary sinusitis[ICD10: J01.01] Diagnosis: Candidal stomatitis[ICD10: B37.0] Diagnosis: Acute laryngopharyngitis[ICD10: J06.0] Isabelle Goldman MD, [facility] CPT- 4: 41798 08/10/2015 79516 EST. PATIENT, LEVEL III Diagnosis: Superficial foreign body of left hand, initial encounter[ICD10: S60.552A] Melba Goldman MD, [facility] CPT-4: 56881 07/28/2015 ([id number]) 46062 EST. PATIENT, LEVEL III Diagnosis: Essential (primary) hypertension[ICD10: I10] Diagnosis: Tinea cruris[ICD10: B35.6] Diagnosis: Abnormal levels of other serum enzymes[ICD10: R74.8] Shahida Goldman MD, [facility] CPT-4: 67489 06/11/2015 ([id number]) 93851 EST. PATIENT, LEVEL IV Diagnosis: ESSENTIAL HYPERTENSION[ICD9: 401.9] Diagnosis: Hypothyroid[ICD9: 244.9] Diagnosis: ALLERGIC RHINITIS[ICD9: 477.9] Diagnosis: Anxiety[ICD9: 300.00] Diagnosis: Sleep apnea[ICD9: 780.57] Shahida Goldman MD, [facility] CPT-4: 99900 03/19/2015 ([id number]) 48953 EST. PATIENT, LEVEL III Diagnosis: ACUTE SINUSITIS[ICD9: 461.9] Celi Goldman MD, [facility] CPT-4: 83695 01/07/2015 ([id number]) 99012 EST. PATIENT, LEVEL III Diagnosis: Conjunctivitis[ICD9: 372.30] Shahida Goldman MD, [facility] CPT-4: 09900 09/23/2014 08978 EST. PATIENT, LEVEL II Diagnosis: Noninfected skin tear of leg[ICD9: 891.0] Shahida Goldman MD, [facility] CPT-4: 12506 08/05/2014 ([id number]) 46089 EST. PATIENT, LEVEL III Diagnosis: Chronic maxillary sinusitis[ICD9: 473.0] Shahida Goldman MD, [facility] CPT-4: 24122 06/23/2014 86852 EST. PATIENT, LEVEL II Diagnosis: Headache[ICD9: 784.0] Shahida Goldman MD, [facility] CPT-4: 35550 06/05/2014 ([id number]) 31633 EST. PATIENT, LEVEL III Diagnosis: Abrasion of right leg[ICD9: 916.0] Diagnosis: Headache[ICD9: 784.0] Diagnosis: ALLERGIC RHINITIS[ICD9: 477.9] Shahida Goldman MD, [facility] CPT-4: 81032 04/03/2014 78914 EST. PATIENT, LEVEL II Diagnosis: Tinea corporis[ICD9: 110.5] Diagnosis: Exposure to scabies[ICD9: V01.89] Shahida Goldman MD, [facility] CPT- 4: 50445 03/07/2014 ([id number]) 95935 EST. PATIENT, LEVEL III Diagnosis: ESSENTIAL HYPERTENSION[SNOMED: 32935134] Diagnosis: OSTEOARTH NOS-UNSPEC[ICD9: 715.90] Diagnosis: Lumbago[ICD9: 724.2] Diagnosis: Cervicalgia[ICD9: 723.1] Shahida Goldman MD, [facility] CPT-4: 08746 11/21/2013 ([id number]) 52590 EST. PATIENT, LEVEL III Diagnosis: DEPRESSIVE DISORDER NEC[ICD9: 311] Diagnosis: Paronychia[ICD9: 681.9] Melba Goldman MD, [facility] CPT-4: 55102 09/24/2013 ([id number]) 50122 EST. PATIENT, LEVEL III Diagnosis: Paronychia[ICD9: 681.9] Diagnosis: Cellulitis[ICD9: 682.9] Melba Goldman MD, [facility] CPT-4: 61567 09/19/2013 ([id number]) 29432 EST. PATIENT, LEVEL III Diagnosis: Conjunctivitis[ICD9: 372.30] Diagnosis: Thrush[ICD9: 112.0] Shahida Goldman MD, [facility] CPT-4: 25407 08/05/2013 ([id number]) 98207 EST. PATIENT, LEVEL III Diagnosis: ACUTE MAXILLARY SINUSITIS[ICD9: 461.0] Diagnosis: COUGH[ICD9: 786.2] Diagnosis: Insomnia[ICD9: 780.52] Diagnosis: ESOPHAGEAL REFLUX[ICD9: 530.81] Melba Goldman MD, [facility] CPT-4: 32503 07/10/2013 ([id number]) Miscellaneous no charge Diagnosis: ESSENTIAL HYPERTENSION[SNOMED: 43664953] Melba Goldman MD, [facility] CPT-4: 53355 05/13/2013 ([id number]) 53475 EST. PATIENT, LEVEL IV Diagnosis: ESSENTIAL HYPERTENSION[SNOMED: 84316036] Diagnosis: HYPOTHYROIDISM[ICD9: 244.9] Diagnosis: OSTEOARTH NOS-UNSPEC[ICD9: 715.90] Melba Goldman MD, [facility] CPT- 4: 46731 05/07/2013 ([id number]) 92318 EST. PATIENT, LEVEL IV Diagnosis: Osteoarthritis[ICD9: 715.90] Diagnosis: Knee pain, bilateral[ICD9: 719.46] Diagnosis: Hip pain[ICD9: 719.45] Melba Goldman MD, [facility] CPT-4: 60403 12/03/2012 ([id number]) 82728 EST. PATIENT, LEVEL III Diagnosis: Thrush[ICD9: 112.0] Melba Goldman MD, [facility] CPT-4: 16187 09/24/2012 ([id number]) 75771 EST. PATIENT, LEVEL IV Diagnosis: ESSENTIAL HYPERTENSION[SNOMED: 97452121] Diagnosis: Thrush[ICD9: 112.0] Diagnosis: Sleep apnea[ICD9: 780.57] Melba Goldman MD [facility] CPT-4: 77764 09/10/2012 ([id number]) 84846 EST. PATIENT, LEVEL IV Diagnosis: Esophageal reflux[ICD9: 530.81] Diagnosis: Hypothyroid[ICD9: 244.9] Diagnosis: JOINT PAIN-MULT JOINTS[ICD9: 719.49] Diagnosis: ALLERGIC RHINITIS[ICD9: 477.9] Melba Goldman MD, [facility] CPT-4: 63866 08/08/2012 ([id number]) 31049 EST. PATIENT, LEVEL IV Diagnosis: Urinary frequency[ICD9: 788.41] Diagnosis: EDEMA[ICD9: 782.3] Diagnosis: HYPOTHYROIDISM[ICD9: 244.9] Diagnosis: Fatigue[ICD9: 780.79] Melba Goldman MD, [facility] CPT-4: 73529 02/15/2012 ([id number]) 04675 EST. PATIENT, LEVEL IV Diagnosis: Abdominal pain[ICD9: 789.00] Diagnosis: Fatigue[ICD9: 780.79] Diagnosis: Nausea[ICD9: 787.02] Melba Goldman MD [facility] CPT-4: 80329 11/10/2011 13167 EST. PATIENT, LEVEL IV Diagnosis: ESSENTIAL HYPERTENSION[SNOMED: 77394776] Diagnosis: DIARRHEA[ICD9: 787.91] Diagnosis: DEPRESSIVE DISORDER NEC[ICD9: 311] Diagnosis: Irritable bowel disease[ICD9: 564.1] Melba Goldman MD, [facility] CPT- 4: 33929 08/01/2011 41276 EST. PATIENT, LEVEL III Diagnosis: ACUTE SINUSITIS[ICD9: 461.9] Diagnosis: Cough[ICD9: 786.2] Shahida Goldman MD, [facility] CPT-4: 42814 07/14/2011 56867 EST. PATIENT, LEVEL IV Diagnosis: VACCIN FOR INFLUENZA[ICD9: V04.81] Diagnosis: ESSENTIAL HYPERTENSION[SNOMED: 95608677] Diagnosis: GENERALIZED ANXIETY DISEASE[ICD9: 300.02] Diagnosis: SLEEP DISTURBANCES[ICD9: 780.50] Shahida Goldman MD, [facility] CPT- 4: 37142 05/23/2011 60403 EST. PATIENT, LEVEL III Diagnosis: ACUTE SINUSITIS[ICD9: 461.9] Diagnosis: ALLERGIC RHINITIS[ICD9: 477.9] Diagnosis: Cough[ICD9: 786.2] Shahida Goldman MD, [facility] CPT-4: 00905 05/03/2011 19062 EST. PATIENT, LEVEL IV Diagnosis: ESSENTIAL HYPERTENSION[SNOMED: 70527831] Diagnosis: DEPRESSIVE DISORDER NEC[ICD9: 311] Diagnosis: Fatigue[ICD9: 780.79] Shahida Goldman MD, [facility] CPT-4: 89054 04/25/2011 Plan of Care Planned Activity Notes Codes Status Date Visit Plan: Anxiety - the patient has [...] acute concerns. 07/16/2018 Appointment: Isabelle Orozco WPtel: [address] [place] [phone] (15 min) Moderate 07/16/2018 Patient Education: Patient [...] of over-medication. 07/10/2018 [facility]ment[phone] [phone] (15 min) Moderate 07/10/2018 Patient Education: Patient Medication Summary Completed 07/10/2018 Patient Education: Back Pain Completed 07/10/2018 Visit Plan: Sinusitis - Pt has acute infection - pain in face, maxillary region, Pt informed to use decongestant, RX given to patient, sinus rinses also recommended. Call if symptoms do not show improvement. 05/28/2018 Appointment: [facility] [phone] [phone] (30 min) Complex 05/28/2018 Patient Education: Patient [...] acute concerns. 02/07/2018 Appointment: [phone] [facility] (15 min) Moderate 02/07/2018 Patient Education: Patient [...] fatigue 01/19/2018 Appointment: Shahida Manzo WPtel: [address] [place], [place] [phone] (15 min) Moderate 01/19/2018 Patient Education: Patient [...] surrogate. 11/23/2017 Appointment: [phone] [facility] [facility] - Annual Wellness Visit 11/23/2017 [...] [address] [phone] (15 min) Moderate 06/27/2017 Patient Education: [...] [address] [phone] (15 min) Moderate 03/14/2017 Patient Education: [...] improving. 02/20/2017 Appointment: [phone] [facility] (30 min) Complex 02/20/2017 Patient Education: [...] use 02/06/2017 Appointment: [facility] Goldman [phone] (15 min) Moderate 02/06/2017 Patient Education: Patient [...] appropriately prescribed for this patient. 12/05/2016 Appointment: SusiMelba WPtel: [facility] Surgical Procedure 12/05/2016 Patient Education: Patient Medication Summary Completed 12/05/2016 Visit Plan: Sinusitis - Pt has acute infection - pain in face, maxillary region, Pt informed to use decongestant, RX given to patient, sinus rinses also recommended. Call if symptoms do not show improvement. Dysuria- culture urine 11/28/2016 Appointment: Shahida Manzo WPtel: [phone] [phone] (15 min) Moderate 11/28/2016 Patient Education: Patient [...] of control. 11/07/2016 Appointment: Isabelle Orozco WPtel: [facility] [facility] - Annual Wellness Visit 11/07/2016 [...] allergy spray. 08/15/2016 Appointment: [facility] [phone] [facility] (15 min) Moderate 08/15/2016 Patient Education: [...] 06/07/2016 App[facility]ment: [phone] [phone] (10 min) Simple 06/07/2016 Patient Education: Patient [...] today 03/14/2016 Appointment: Shahida Manzo WPtel: [phone] [phone] (15 min) Moderate 03/14/2016 Patient Education: Patient Medication Summary Completed 03/14/2016 Care Plan: COMPLETE CBC AUTOMATED LOINC : 21503-1 Pending 03/14/2016 Visit Plan: Cellulitis - The patient was instructed in appropriate wound care. The patient was instructed to use the antibiotic ointment as per RX. The patient is to call for any change in symptoms, increase in size of the lesion, increase in pain. 02/22/2016 Appointment: [phone] [facility] (15 min) Moderate 02/22/2016 Patient Education: [...] dai 11/24/2015 Appointment: Melba Goldman [facility]Ptel[phone] [facility] (30 min) [facility] 11/24/2015 Patient Education: Patient Medication Summary Completed 11/24/2015 Patient Education: Obesity Completed 11/24/2015 Patient Education: Hypertension Completed 11/24/2015 Patient Education: .Cervicalgia Neck Pain Completed 11/24/2015 Care Plan: Referral Order SNOMED-CT : [id number] Ordered 11/24/2015 Visit Plan: Acute Migraine - [...] ALT-check labs today to monitor 06/11/2015 Appointment: Shahdia [phone] [phone] (15 min) Moderate 06/11/2015 Patient Education: Patient [...] OFFICE Sleep apnea-patient needs new CPAP-will contact [facility] patient Pt reports that she uses her [...] OFFICE Sleep apnea-patient needs new CPAP-will contact [facility] patient Pt reports that she uses [...] OFFICE Sleep apnea-patient needs new CPAP-will contact [facility] 03/19/2015 Appointment: (15 min) Moderate [...] Medication Summary Completed 01/07/2015 Patient Education: [facility] - Saving AutoInj - 18+ - [...] areas dry Exposure to scabies-RX sent to [facility]. 03/07/2014 Appointment: Melba Goldman WPtel: [facility] [place] rash 03/07/2014 Patient Education: Patient [...] change in blood pressure readings at home. Edrmhrx-vbvtxtspqng-jvztkrbv duragesic patch-appt with Dr Ortiz for pain management 11/21/2013 Appointment: Shahida Manzo WPtel: [phone] Follow up 11/21/2013 Patient Education: Patient Medication Summary Completed 11/21/2013 Patient Education: Hypertension Completed 11/21/2013 Patient Education: .Cervicalgia Neck Pain Completed 11/21/2013 Appointment: Melba Goldman WPtel: [facility] Other 11/19/2013 Appointment: Melba Goldman WPtel: [address] [place], [place] [phone] Follow up 11/06/2013 Appointment: Melba Goldman WPtel: [address] [place], [place] [phone] Lab Draw 10/15/2013 Patient Education: Patient Medication [...] AT BEDTIME 09/24/2013 Appointment: Shahida Manzo WPtel: [address] [place], [place] [phone] [place] [address] Other 09/24/2013 Patient Education: Patient Medication Summary Completed 09/24/2013 Visit Plan: Paronychia/Cellulitis - continue with oral antibiotics as previously directed, return to clinic as previously directed, call for acute change in symptoms, worsening redness, warmth, discharge. 09/19/2013 Appointment: Melba Goldman WPtel: [address] [place], [place] [id number] Other 09/19/2013 Patient Education: Patient Medication Summary Completed 09/19/2013 Visit Plan: Conjunctivitis - rx for eye drops/lube sent electronically to the patient's pharmacy. The patient has been instructed to cleanse affected eye with warm washcloth, then place medication into affected eye four times daily. Thrush-refill nystatin-call if symptoms do not resolve 08/05/2013 Appointment: Shahida Manzo WPtel: [address] [place] [phone] Sick 08/05/2013 Patient Education: Patient Medication Summary [...] improvement. 06/03/2013 Appointment: Melba Goldman [facility]el[phone] Follow up 06/03/2013 Patient Education: Patient Medication Summary Completed 06/03/2013 Patient Education: Hypertension Completed 06/03/2013 Appointment: Melba Goldman WPtel: [address] [place], [place] [id number] Nurse Visit 05/13/2013 Patient Education: Patient Medication [...] control. 05/07/2013 Appointment: Melba Goldman [facility]Ptel[phone] Follow up 05/07/2013 Patient Education: Patient Medication Summary Completed 05/07/2013 Patient Education: Hypertension Completed 05/07/2013 Patient Education: Patient Medication Summary Completed 04/30/2013 Patient Education: Hypertension Completed 04/30/2013 Visit Plan: Arthritis- occasionally uncontrolled symptoms- recommend pt to take antiinflammatory as directed for pain control. Use tylenol for break through pain symptoms. 12/03/2012 Appointment: Melba Goldman [facility]el[phone] Follow up 12/03/2012 Patient Education: Patient Medication [...] not resolve 09/24/2012 Appointment: [phone] [facility] 09/24/2012 Patient Education: Patient Medication Summary [...] Goldman WPtel: [facility] Follow up 09/10/2012 Patient Education: Patient [...] pain symptoms. 08/08/2012 Appointment: Shahida Manzo WPtel[phone] Follow up 08/08/2012 Patient Education: Patient Medication Summary Completed 08/08/2012 Patient Education: Patient Medication Summary Completed 08/07/2012 Patient Education: Hypertension Completed 08/07/2012 Appointment: Melba Goldman WPtel: [facility] Lab Draw 02/16/2012 Patient Education: Patient Medication [...] Needs labs. 02/15/2012 Appointment: Melba Goldman WPtel: [address] [place], [place] [id number] Other 02/15/2012 Patient Education: Patient Medication Summary Completed 02/15/2012 Visit Plan: Abdominal pain - ultrasound tomorrow AM nothing to eat before the ultrasound from 11pm tonight bland diet. Nausea - worse with fatty foods, recommended low fat/bland diet, call if symptoms worsening. 11/10/2011 Appointment: Melba Goldman WPtel: [address] [place], [place] [id number] Other 11/10/2011 Patient Education: Patient Medication Summary [...] stools. 08/01/2011 Appointment: Melba Goldman [facility]Ptel[phone] [place] Other 08/01/2011 Patient Education: Patient Medication Summary Completed 08/01/2011 Patient Education: High Blood Pressure: Essential Hypertension Completed 08/01/2011 Visit Plan: Sinusitis - Pt has acute infection - pain in face, maxillary region, Pt informed to use decongestant, RX given to patient, sinus rinses also recommended. Call if symptoms do not show improvement. Cough- kishore zurita 07/14/2011 Appointment: Shahida [facility]zo [facility]el[phone] [phone] [place] Other 07/14/2011 Patient Education: Patient Medication [...] office. 05/23/2011 Appointment: Shahida Manzo WPtel: [phone] [facility] [place] [address] Other 05/23/2011 Patient Education: Patient Medication Summary [...] cough med 05/03/2011 Appointment: Shahida Manzo WPtel: [phone] [phone] [place] Other 05/03/2011 Patient Education: Patient [...] plan with the nurse practicioner. 04/25/2011 Appointment: Shahida Manzo WPtel: [address] [place], [place] [phone] Other 04/25/2011 Patient Education: Patient Medication Summary [...] OFFICE Sleep apnea-patient needs new CPAP-will contact [facility] Pt reports that she uses [...] OFFICE Sleep apnea-patient needs new CPAP-will contact [facility] Pt reports that she uses [...] OFFICE Sleep apnea-patient needs new CPAP-will contact [facility] . Sinusitis - Pt has acute [...] Call if symptoms do not show improvement. trintellix - 10mg one pill daily in [...] areas dry Exposure to scabies-RX sent to [facility] pharmacy. rocephin/kenalog . Sinusitis - [...] call for acute concerns. Discussed with Dr Susi-patient to go to hospital for EKG, labs [...] change in blood pressure readings at home. Vbbevwu-pyphtzipbdu-xgjlycso duragesic patch-appt with Dr Ortiz for pain management . Conjunctivitis - rx for eye drops/lube [...] of the lesion, increase in pain. . URI - Pt advised to increase [...] FOR SINUSITIS/BRONCHITIS START PREDNISONE FOR SYMPTOMS SINUSITIS/DYSPNEA. Continue to monitor blood pressure and bring [...] ambien. Influenza vaccine today in the office. Increase Synthroid to 100mcg po daily. Repeat [...] break through pain symptoms. . Hypertension - well controlled - [...] diet to bulk up the stools. . Abdominal pain - ultrasound tomorrow AM nothing to eat before the ultrasound from 11pm tonight bland diet. Nausea - worse with fatty foods, recommended low fat/bland diet, call if symptoms worsening. . Sinusitis - Pt has acute infection - pain in face, maxillary region, Pt informed to use decongestant, RX given to patient, sinus rinses also recommended. Call if symptoms do not show improvement. Cough-tessalon pearles increase bystolic to 15mg daily.. Hypertension - [...] based on previous levels of control. . Hypertension - fairlywell controlled - due [...] with the nurse practicioner. . Hypertension - well controlled - continue [...] fitted lindsay. Thrush- treating with diflucan . Arthritis- occasionally uncontrolled symptoms- recommend pt to take antiinflammatory as directed for pain control. Use tylenol for break through pain symptoms.
--- OUTSIDE RECORDS SUMMARY | 2019-03-08 17:45 | XMS REPORT | CCD ---
Author Author [facility] Address [address] [place] [address] Phone Care Team Providers Care Greens Cutter Name Role Phone PP Unavailable CCM Unavailable Summary Purpose Interface Exchange Insurance Providers Payer name Policy type / Coverage type Covered constitution party ID Effective Begin Date Effective End Date [employer] Medicare Part B [id number] Unknown Family history Son Diagnosis Age At Onset Crohn's disease Unknown Brother Diagnosis Age At Onset Cardiovascular disease Unknown Mother Diagnosis Age At Onset Hypertension Unknown Father Diagnosis Age At Onset Cardiovascular disease Unknown Social History Social History Element Codes Description Effective Dates Marital status Unknown 04/22/2011 Number of children Unknown 3 1 son -Crohns 04/22/[address]: 123182874 Nonsmoker 04/22/2011 Allergies, Adverse Reactions, Alerts Substance [...] Active 08/14/2016 Unknown Laceration without foreign body, left lower leg, subsequent encounter ICD-9: V58.89 ICD-10: S81.812D Active 02/08/2018 Unknown Laceration without foreign body, right lower leg, subsequent encounter ICD-9: V58.89 ICD-10: S81.811D Active 02/08/2018 Unknown Cellulitis of left lower [...] J01.80 08/14/2016 Active Laceration without foreign body, left lower leg, subsequent encounter ICD-9: V58.89 ICD-10: S81.812D 02/08/2018 Active Laceration without foreign body, right lower leg, subsequent encounter ICD-9: V58.89 ICD-10: S81.811D 02/08/2018 Active Cellulitis of left lower limb [...] hydrocodone 10 mg-acetaminophen 325 mg tablet RxNorm: 267645 Tablet(s) PO TAKE ONE TO TWO TABLETS BY MOUTH EVERY 6 HOURS NEEDED FOR PAIN 07/10/2018 07/24/2018 Active prednisone 20 mg tablet RxNorm: 753750 1 Tablet(s) PO BID 07/10/2018 07/14/2018 Active Phenergan with Codeine Syrup RxNorm: 5-10 Milliliter(s) PO Q6 PRN 06/28/2018 No Stop Date Active prednisone 20 mg tablet RxNorm: 197992 2 Tablet(s) PO daily 05/31/2018 06/04/2018 Inactive prednisone 20 mg tablet RxNorm: 927299 2 Tablet(s) PO daily 05/31/2018 05/30/2018 Inactive ceftriaxone 500 mg solution for injection RxNorm: 0797411 Inj 05/28/2018 05/28/2018 Inactive doxycycline hyclate 100 mg tablet RxNorm: 1363117 1 Tablet(s) PO BID 05/28/2018 06/06/2018 Inactive Kenalog 40 mg/mL suspension for injection RxNorm: 7470503 Milliliter(s) Inj 05/28/2018 05/28/2018 Inactive hydrocodone 10 mg-acetaminophen 325 mg tablet RxNorm: 411668 Tablet(s) PO TAKE ONE TO TWO TABLETS BY MOUTH EVERY 6 HOURS NEEDED FOR PAIN 05/09/2018 05/23/2018 Inactive alprazolam 0.25 mg tablet RxNorm: 987658 1 Tablet(s) PO daily as needed 04/25/2018 07/23/2018 Active Bystolic 10 mg tablet RxNorm: 875050 TAKE ONE TABLET BY MOUTH DAILY 04/16/2018 09/12/2018 Active hydrocodone 10 mg-acetaminophen 325 mg tablet RxNorm: 695850 Tablet(s) PO TAKE ONE TO TWO TABLETS BY MOUTH EVERY 6 HOURS NEEDED FOR PAIN 03/06/2018 03/20/2018 Inactive trazodone 50 mg tablet RxNorm: 699133 TAKE ONE AND ONE-HALF (1 1/2) TABLET BY MOUTH AT BEDTIME. MAY INCREASE TO 2 TABLETS AT BEDTIME NEEDED 02/23/2018 06/12/2018 Inactive mupirocin 2 % topical ointment RxNorm: 354887 1 TOP BID 02/09/2018 05/27/2018 Inactive Zofran 4 mg tablet RxNorm: 630608 1 Tablet(s) PO TID as needed 02/08/2018 No Stop Date Active Keflex 500 mg capsule RxNorm: 062867 1 Capsule(s) PO TID 02/07/2018 02/13/2018 Inactive alprazolam 0.25 mg tablet RxNorm: 389092 1 Tablet(s) PO daily as needed 01/24/2018 07/09/2018 Inactive piroxicam 20 mg capsule RxNorm: 682569 1 Capsule(s) PO daily 01/19/2018 07/17/2018 Active D/C ORDER FOR HCTZ hydrocodone 10 mg-acetaminophen 325 mg tablet RxNorm: 861156 Tablet(s) PO TAKE ONE TO TWO TABLETS BY MOUTH EVERY 6 HOURS NEEDED FOR PAIN 01/19/2018 02/02/2018 Inactive hydrochlorothiazide 25 mg tablet RxNorm: 107995 Tablet(s) TAKE ONE TABLET BY MOUTH DAILY 01/19/2018 01/19/2018 Inactive Kenalog 40 mg/mL suspension for injection RxNorm: 6862146 1 Milliliter(s) Inj 01/19/2018 01/19/2018 Inactive ceftriaxone 500 mg solution for injection RxNorm: 2401468 500 Milligram(s) Inj 01/19/2018 01/19/2018 Inactive Nexium 40 mg capsule,delayed release RxNorm: 194181 TAKE ONE CAPSULE BY MOUTH TWICE A DAY 01/18/2018 04/17/2018 Inactive Nexium 40 mg capsule,delayed release RxNorm: 265974 TAKE ONE CAPSULE BY MOUTH TWICE A DAY 01/15/2018 04/14/2018 Inactive ciprofloxacin 0.3 % eye drops RxNorm: 620102 2 Drop(s) ophthalmic (eye) Q2H while awake x 2 days, then Q4H x 5 days 11/23/2017 05/27/2018 Inactive Keflex 500 mg capsule RxNorm: 002862 1 Capsule(s) PO TID 11/23/2017 11/29/2017 Inactive hydrocodone 10 mg-acetaminophen 325 mg tablet RxNorm: 221229 Tablet(s) PO TAKE ONE TO TWO TABLETS BY MOUTH EVERY 6 HOURS NEEDED FOR PAIN 10/30/2017 11/13/2017 Inactive Augmentin 500 mg-125 mg tablet RxNorm: 738908 1 Tablet(s) PO TID 10/27/2017 11/05/2017 Inactive alprazolam 0.25 mg tablet RxNorm: 970205 1 Tablet(s) PO daily as needed 10/26/2017 04/24/2018 Inactive trazodone 50 mg tablet RxNorm: 240505 TAKE ONE AND ONE-HALF (1 1/2) TABLET BY MOUTH AT BEDTIME. MAY INCREASE TO 2 TABLETS AT BEDTIME NEEDED 09/25/2017 02/03/2018 Inactive Lexapro 20 mg tablet RxNorm: 553284 TAKE ONE AND ONE-HALF TABLET BY MOUTH DAILY 09/15/2017 09/09/2018 Active Flagyl 500 mg tablet RxNorm: 070529 1 Tablet(s) PO TID 09/12/2017 09/21/2017 Inactive promethazine 25 mg tablet RxNorm: 692888 1 Tablet(s) PO TID as needed nausea and vomitting THIS WILL MAKE YOU SLEEPY 09/12/2017 11/08/2017 Inactive Keflex 500 mg capsule RxNorm: 529863 1 Capsule(s) PO QID 08/25/2017 08/31/2017 Inactive [SAVINGS FOR UNINSURED PATIENTS -- [id number], PCN: [id number], Group: [facility], ID# [id number], Process claim through [employer], for questions: . THIS IS NOT INSURANCE.] alprazolam 0.25 mg tablet RxNorm: 751876 1 Tablet(s) PO daily as needed 07/31/2017 04/24/2018 Inactive prednisone 20 mg tablet RxNorm: 668179 2 Tablet(s) PO daily 07/25/2017 07/29/2017 Inactive Augmentin 500 mg-125 mg tablet RxNorm: 692382 1 Tablet(s) PO TID 07/25/2017 08/03/2017 Inactive trazodone 50 mg tablet RxNorm: 146935 TAKE ONE AND ONE-HALF (1 1/2) TABLET BY MOUTH AT BEDTIME. MAY INCREASE TO 2 TABLETS AT BEDTIME NEEDED 06/30/2017 09/03/2017 Inactive Bystolic 10 mg tablet RxNorm: 605502 TAKE ONE TABLET BY MOUTH DAILY 06/30/2017 2017 Inactive hydrochlorothiazide 25 mg tablet RxNorm: 159933 TAKE ONE TABLET BY MOUTH DAILY 06/30/2017 01/18/2018 Inactive Flagyl 500 mg tablet RxNorm: 737978 1 Tablet(s) PO TID 06/27/2017 07/03/2017 Inactive Phenergan with Codeine Syrup RxNorm: 5-10 Milliliter(s) PO Q6 PRN 06/27/2017 11/15/2017 Inactive Levaquin 500 mg tablet RxNorm: 834429 1 Tablet(s) PO daily 06/27/2017 07/03/2017 Inactive Kenalog 40 mg/mL suspension for injection RxNorm: 7826473 1 Milliliter(s) Inj 06/27/2017 06/27/2017 Inactive Nexium 40 mg capsule,delayed release RxNorm: 988407 1 Capsule(s) PO BID TAKE ONE CAPSULE BY MOUTH BID 05/22/2017 09/18/2017 Inactive Nexium 40 mg capsule,delayed release RxNorm: 624159 1 Capsule(s) PO BID TAKE ONE CAPSULE BY MOUTH BID 05/22/2017 05/21/2017 Inactive hydrocodone 10 mg-acetaminophen 325 mg tablet RxNorm: 343012 Tablet(s) PO TAKE ONE TO TWO TABLETS BY MOUTH EVERY 6 HOURS NEEDED FOR PAIN 05/17/2017 06/15/2017 Inactive Nexium 40 mg capsule,delayed release RxNorm: 615578 Capsule(s) TAKE ONE CAPSULE BY MOUTH BID 05/17/2017 05/21/2017 Inactive alprazolam 0.25 mg tablet RxNorm: 075069 1 Tablet(s) PO daily as needed 05/03/2017 07/01/2017 Inactive Levaquin 500 mg tablet RxNorm: 965613 1 Tablet(s) PO daily 04/20/2017 04/26/2017 Inactive clotrimazole 1 % topical cream RxNorm: 974380 1 Application TOP BID 04/20/2017 11/07/2017 Inactive Kenalog 40 mg/mL suspension for injection RxNorm: 3113722 Milliliter(s) Inj 04/20/2017 04/20/2017 Inactive nystatin 100,000 unit/gram topical powder RxNorm: 227502 1 Gram(s) APPLY TOPICALLY TWO TIMES A DAY 04/10/2017 07/08/2017 Inactive trazodone 50 mg tablet RxNorm: 966827 TAKE ONE AND ONE-HALF (1 1/2) TABLET BY MOUTH AT BEDTIME. MAY INCREASE TO 2 TABLETS AT BEDTIME NEEDED 03/28/2017 06/23/2017 Inactive Augmentin 875 mg-125 mg tablet RxNorm: 144962 1 Tablet(s) PO BID 03/14/2017 03/20/2017 Inactive Kenalog 40 mg/mL suspension for injection RxNorm: 1186224 1 Milliliter(s) Inj 03/14/2017 03/14/2017 Inactive Lexapro 20 mg tablet RxNorm: 229141 1.5 Tablet(s) PO daily 03/08/2017 03/07/2017 Inactive Lexapro 20 mg tablet RxNorm: 261908 1.5 Tablet(s) PO daily 03/08/2017 07/05/2017 Inactive alprazolam 0.25 mg tablet RxNorm: 692072 1 Tablet(s) PO daily as needed 02/23/2017 04/23/2017 Inactive (Response to an electronic controlled substance refill request - RxReferenceNumber: [id number]) Flagyl 500 mg tablet RxNorm: 945126 1 Tablet(s) PO TID 02/20/2017 03/01/2017 Inactive promethazine 25 mg tablet RxNorm: 942646 1 Tablet(s) PO TID as needed nausea 02/20/2017 03/01/2017 Inactive Cipro 500 mg tablet RxNorm: 739802 1 Tablet(s) PO BID 02/20/2017 03/01/2017 Inactive Flagyl 500 mg tablet RxNorm: 137216 1 Tablet(s) PO TID 02/09/2017 02/15/2017 Inactive Trintellix 10 mg tablet RxNorm: 9027722 1 Tablet(s) PO QAM 02/06/2017 03/07/2017 Inactive Efudex 5 % topical cream RxNorm: 158194 1 Application TOP BID use on skin spot on nose 02/06/2017 02/15/2017 Inactive Bystolic 10 mg tablet RxNorm: 079076 TAKE ONE TABLET BY MOUTH DAILY 02/03/2017 06/02/2017 Inactive Imitrex 50 mg tablet RxNorm: 224296 TAKE ONE TABLET BY MOUTH EVERY 8 HOURS NEEDED MAY REPEAT IN 1 HOUR OF INITIAL DOSE. DISCONTINUE FIORICET 12/22/2016 02/19/2017 Inactive Nexium 40 mg capsule,delayed release RxNorm: 644615 TAKE ONE CAPSULE BY MOUTH EVERY DAY 12/21/2016 05/16/2017 Inactive Lexapro 20 mg tablet RxNorm: 458900 Tablet(s) TAKE ONE TABLET BY MOUTH DAILY 12/05/2016 02/05/2017 Inactive Augmentin 875 mg-125 mg tablet RxNorm: 367079 1 Tablet(s) PO BID 11/28/2016 12/04/2016 Inactive ceftriaxone 500 mg solution for injection RxNorm: 9705721 1 Milliliter(s) Inj 11/28/2016 11/28/2016 Inactive hydrocodone 10 mg-acetaminophen 325 mg tablet RxNorm: 337481 Tablet(s) PO TAKE ONE TO TWO TABLETS BY MOUTH EVERY 6 HOURS NEEDED FOR PAIN 11/28/2016 05/16/2017 Inactive (Appended: Controlled substance eRx refill - RxReferenceNumber: [id number]) prednisone 20 mg tablet RxNorm: 726347 2 Tablet(s) PO daily 11/28/2016 12/02/2016 Inactive Synthroid 100 mcg tablet RxNorm: 855732 1 Tablet(s) PO daily 11/21/2016 05/19/2017 Inactive Brand name only! trazodone 50 mg tablet RxNorm: 571208 TAKE 1 AND 1/2 TABLETS EVERY NIGHT AT BEDTIME , MAY INCREASE TO 2 TABLETS AT BEDTIME NEEDED 11/21/2016 02/16/2017 Inactive trazodone 50 mg tablet RxNorm: 025316 Tablet(s) TAKE 1 AND 1/2 TABLETS EVERY NIGHT AT BEDTIME , MAY INCREASE TO 2 TABLETS AT BEDTIME NEEDED 11/21/2016 11/20/2016 Inactive Synthroid 100 mcg tablet RxNorm: 882386 1 Tablet(s) PO daily TAKE ONE TABLET BY MOUTH DAILY 11/08/2016 11/20/2016 Inactive ceftriaxone 500 mg solution for injection RxNorm: 8301683 Inj 11/07/2016 11/07/2016 Inactive Kenalog 40 mg/mL suspension for injection RxNorm: 8502414 Milliliter(s) Inj 11/07/2016 11/07/2016 Inactive Xanax 0.25 mg tablet RxNorm: 344144 1 Tablet(s) PO daily as needed 10/31/2016 05/02/2017 Inactive alprazolam 0.25 mg tablet RxNorm: 505972 1 Tablet(s) PO daily as needed 10/21/2016 12/18/2016 Inactive (Response to an electronic controlled substance refill request - RxReferenceNumber: [id number]) hydrochlorothiazide 25 mg tablet RxNorm: 346601 TAKE ONE TABLET BY MOUTH DAILY 10/11/2016 04/08/2017 Inactive Xanax 0.25 mg tablet RxNorm: 286463 1 Tablet(s) PO daily as needed 08/23/2016 10/19/2016 Inactive Flonase Allergy Relief 50 mcg/actuation nasal spray,suspension RxNorm: 6338772 1 [place] NASAL daily 08/15/2016 No Stop Date Active amoxicillin 500 mg capsule RxNorm: 936013 1 Capsule(s) PO TID 08/15/2016 08/24/2016 Inactive Bystolic 10 mg tablet RxNorm: 129075 TAKE ONE TABLET BY MOUTH DAILY 08/01/2016 12/28/2016 Inactive trazodone 50 mg tablet RxNorm: 528460 TAKE 1 AND 1/2 TABLETS EVERY NIGHT AT BEDTIME , MAY INCREASE TO 2 TABLETS AT BEDTIME NEEDED 07/25/2016 11/11/2016 Inactive alprazolam 0.25 mg tablet RxNorm: 823431 1 Tablet(s) PO daily as needed 07/25/2016 08/22/2016 Inactive (Response to an electronic controlled substance refill request - RxReferenceNumber: [id number]) Imitrex 50 mg tablet RxNorm: 081733 1 Tablet(s) PO Q8 as needed may repeat x1 dose in 1 hour of inital dose. 07/13/2016 No Stop Date Active Lexapro 20 mg tablet RxNorm: 330381 TAKE 1/2 TABLET BY MOUTH DAILY FOR 10 DAYS, THEN TAKE ONE TABLET BY MOUTH DAILY 06/27/2016 11/23/2016 Inactive Synthroid 100 mcg tablet RxNorm: 973418 TAKE ONE TABLET BY MOUTH DAILY 06/20/2016 11/07/2016 Inactive Augmentin 500 mg-125 mg tablet RxNorm: 039484 1 Tablet(s) PO TID 06/07/2016 06/13/2016 Inactive hydrocodone 10 mg-acetaminophen 325 mg tablet RxNorm: 032101 Tablet(s) PO TAKE ONE TO TWO TABLETS BY MOUTH EVERY 6 HOURS NEEDED FOR PAIN 06/07/2016 11/27/2016 Inactive (Appended: Controlled substance eRx refill - RxReferenceNumber: [id number]) hydrochlorothiazide 25 mg tablet RxNorm: 935470 TAKE ONE TABLET BY MOUTH DAILY 03/14/2016 09/09/2016 Inactive Edarbi 40 mg tablet RxNorm: 4699088 1 Tablet(s) PO daily 03/14/2016 06/06/2016 Inactive trazodone 50 mg tablet RxNorm: 666180 Tablet(s) TAKE 1 AND 1/2 TABLET AT BEDTIME. MAY INCREASE TO 2 TABLETS IF NECESSARY 02/25/2016 07/05/2016 Inactive Imitrex 50 mg tablet RxNorm: 843935 1 Tablet(s) PO Q8 as needed may repeat x1 dose in 1 hour of inital dose. 02/25/2016 07/12/2016 Inactive dc fioricet Xanax 0.25 mg tablet RxNorm: 502867 1 Tablet(s) PO daily as needed 02/24/2016 07/21/2016 Inactive mupirocin 2 % topical ointment RxNorm: 931690 1 TOP BID 02/22/2016 11/08/2017 Inactive Bactrim DS 800 mg-160 mg tablet RxNorm: 257392 1 Tablet(s) PO BID 02/22/2016 03/02/2016 Inactive Fioricet 50 mg-325 mg-40 mg tablet RxNorm: 451982 Tablet(s) TAKE ONE TABLET BY MOUTH EVERY 4 HOURS NEEDED FOR headache 02/12/2016 02/24/2016 Inactive (Response to an electronic controlled substance refill request - RxReferenceNumber: [id number]) Fioricet 50 mg-325 mg-40 mg tablet RxNorm: 197176 Tablet(s) TAKE ONE TABLET BY MOUTH EVERY 4 HOURS NEEDED FOR headache 02/12/2016 02/11/2016 Inactive (Response to an electronic controlled substance refill request - RxReferenceNumber: [id number]) Nexium 40 mg capsule,delayed release RxNorm: 353307 TAKE ONE CAPSULE BY MOUTH EVERY DAY 02/01/2016 10/27/2016 Inactive Bystolic 10 mg tablet RxNorm: 692210 Tablet(s) TAKE ONE TABLET BY MOUTH DAILY 01/06/2016 07/03/2016 Inactive Xanax 0.25 mg tablet RxNorm: 454865 1 Tablet(s) PO daily as needed 12/28/2015 02/23/2016 Inactive Levaquin 500 mg tablet RxNorm: 686757 1 Tablet(s) PO daily take a probiotic daily 12/14/2015 02/11/2016 Inactive Levaquin 500 mg tablet RxNorm: 279255 1 Tablet(s) PO daily take a probiotic daily 12/14/2015 12/13/2015 Inactive prednisone 20 mg tablet RxNorm: 768866 1 Tablet(s) PO BID 12/07/2015 12/13/2015 Inactive Augmentin 875 mg-125 mg tablet RxNorm: 251809 1 Tablet(s) PO BID 12/07/2015 12/13/2015 Inactive ceftriaxone 500 mg solution for injection RxNorm: 1313900 Inj 12/07/2015 12/07/2015 Inactive Phenergan with Codeine Syrup RxNorm: 5-10 Milliliter(s) PO Q6 PRN 12/07/2015 06/26/2017 Inactive alprazolam 0.25 mg tablet RxNorm: 176628 1 Tablet(s) PO daily as needed 11/27/2015 12/25/2015 Inactive (Response to an electronic controlled substance refill request - RxReferenceNumber: [id number]) trazodone 50 mg tablet RxNorm: 005794 TAKE 1 AND 1/2 TABLET AT BEDTIME FOR 2 WEEKS, MAY INCREASE TO 2 TABLETS IF NECESSARY AFTER THAT 11/26/2015 02/24/2016 Inactive ceftriaxone 500 mg solution for injection RxNorm: 4004815 Milliliter(s) Inj 11/24/2015 11/24/2015 Inactive prednisone 10 mg tablet RxNorm: 338714 3 Tablet(s) PO daily 11/24/2015 11/28/2015 Inactive cefdinir 300 mg capsule RxNorm: 678858 1 Capsule(s) PO BID 11/24/2015 11/30/2015 Inactive Kenalog 40 mg/mL suspension for injection RxNorm: 0000702 1 Milliliter(s) Inj 11/24/2015 11/24/2015 Inactive Lexapro 20 mg tablet RxNorm: 737319 TAKE 1/2 TABLET BY MOUTH DAILY FOR 10 DAYS, THEN TAKE ONE TABLET BY MOUTH DAILY 11/23/2015 05/20/2016 Inactive Lipitor 10 mg tablet RxNorm: 356000 Tablet(s) TAKE ONE TABLET BY MOUTH EVERY DAY 10/26/2015 11/06/2016 Inactive Norvasc 10 mg tablet RxNorm: 343838 Tablet(s) PO TAKE ONE TABLET BY MOUTH EVERY DAY 10/26/2015 01/18/2018 Inactive hydrochlorothiazide 25 mg tablet RxNorm: 410900 TAKE ONE TABLET BY MOUTH DAILY 10/20/2015 01/17/2016 Inactive promethazine 25 mg/mL injection solution RxNorm: 080785 Milliliter(s) Inj 08/27/2015 08/27/2015 Inactive ketorolac 60 mg/2 mL intramuscular solution RxNorm: 104752 Milliliter(s) IM 08/27/2015 08/27/2015 Inactive alprazolam 0.25 mg tablet RxNorm: 453854 1 Tablet(s) PO daily as needed 08/27/2015 10/25/2017 Inactive (Response to an electronic controlled substance refill request - RxReferenceNumber: [id number]) Lexapro 20 mg tablet RxNorm: 241948 TAKE 1/2 TABLET BY MOUTH DAILY FOR 10 DAYS, THEN TAKE ONE TABLET BY MOUTH DAILY 08/13/2015 11/10/2015 Inactive Flonase 50 mcg/actuation nasal spray,suspension RxNorm: 430693 PLACE 1 SPRAY IN EACH NOSTRIL DAILY 08/13/2015 02/08/2016 Inactive Augmentin 500 mg-125 mg tablet RxNorm: 677622 1 Tablet(s) PO TID 08/10/2015 08/16/2015 Inactive Kenalog 40 mg/mL suspension for injection RxNorm: 4909284 Milliliter(s) Inj 08/10/2015 08/10/2015 Inactive ceftriaxone 500 mg solution for injection RxNorm: 6922176 Inj 08/10/2015 08/10/2015 Inactive nystatin 100,000 unit/mL oral suspension RxNorm: 081955 4 Milliliter(s) PO QID 08/10/2015 08/16/2015 Inactive trazodone 50 mg tablet RxNorm: 356372 TAKE 1 AND 1/2 TABLET AT BEDTIME FOR 2 WEEKS, MAY INCREASE TO 2 TABLETS IF NECESSARY AFTER THAT 07/31/2015 11/25/2015 Inactive ceftriaxone 500 mg solution for injection RxNorm: 3257503 1 Milliliter(s) Inj 07/28/2015 07/28/2015 Inactive Bactrim DS 800 mg-160 mg tablet RxNorm: 605970 1 Tablet(s) PO BID 07/28/2015 08/06/2015 Inactive Bactroban 2 % topical ointment RxNorm: 189600 1 Application TOP BID 07/28/2015 08/06/2015 Inactive Diflucan 150 mg tablet RxNorm: 702073 1 Tablet(s) PO daily 06/11/2015 06/17/2015 Inactive clotrimazole 1 % topical cream RxNorm: 246579 1 Application TOP BID 06/11/2015 07/10/2015 Inactive Bystolic 10 mg tablet RxNorm: 919847 TAKE ONE TABLET BY MOUTH DAILY 06/08/2015 12/04/2015 Inactive alprazolam 0.25 mg tablet RxNorm: 963121 1 Tablet(s) PO daily as needed 06/01/2015 08/25/2015 Inactive (Response to an electronic controlled substance refill request - RxReferenceNumber: [id number]) Fioricet 50 mg-325 mg-40 mg tablet RxNorm: 957181 Tablet(s) TAKE ONE TABLET BY MOUTH EVERY 4 HOURS NEEDED FOR headache 05/28/2015 06/08/2015 Inactive (Response to an electronic controlled substance refill request - RxReferenceNumber: [id number]) trazodone 50 mg tablet RxNorm: 302992 TAKE 1 AND 1/2 TABLET AT BEDTIME FOR 2 WEEKS, MAY INCREASE TO 2 TABLETS IF NECESSARY AFTER THAT 05/25/2015 08/22/2015 Inactive trazodone 50 mg tablet RxNorm: 135584 TAKE 1 AND 1/2 TABLET AT BEDTIME FOR 2 WEEKS, MAY INCREASE TO 2 TABLETS IF NECESSARY AFTER THAT 05/25/2015 05/24/2015 Inactive Synthroid 100 mcg tablet RxNorm: 556827 TAKE ONE TABLET BY MOUTH DAILY 04/23/2015 01/17/2016 Inactive Lipitor 10 mg tablet RxNorm: 986820 TAKE ONE TABLET BY MOUTH EVERY DAY 04/23/2015 10/25/2015 Inactive Kenalog 40 mg/mL suspension for injection RxNorm: 5048925 Milliliter(s) Inj 03/19/2015 03/19/2015 Inactive Lexapro 20 mg tablet RxNorm: 095082 1 Tablet(s) PO daily 03/19/2015 07/16/2015 Inactive 1/2 tab daily x 10 days then 1 tab daily hydrocodone 10 mg-acetaminophen 325 mg tablet RxNorm: 210965 Tablet(s) PO TAKE ONE TO TWO TABLETS BY MOUTH EVERY 6 HOURS NEEDED FOR PAIN 03/19/2015 06/06/2016 Inactive (Appended: Controlled substance eRx refill - RxReferenceNumber: [id number]) Carafate 1 gram tablet RxNorm: 605062 1 Tablet(s) PO AC & HS 03/19/2015 06/16/2015 Inactive dissolve in water and take as a slurry hydrochlorothiazide 25 mg tablet RxNorm: 983126 1 Tablet(s) PO daily 03/12/2015 09/07/2015 Inactive Nexium 40 mg capsule,delayed release RxNorm: 209171 TAKE ONE CAPSULE BY MOUTH EVERY DAY 02/26/2015 12/22/2015 Inactive Cymbalta 60 mg capsule,delayed release RxNorm: 184105 TAKE ONE CAPSULE BY MOUTH TWICE A DAY 02/23/2015 03/18/2015 Inactive alprazolam 0.25 mg tablet RxNorm: 941005 1 Tablet(s) PO daily as needed 02/11/2015 05/10/2015 Inactive (Response to an electronic controlled substance refill request - RxReferenceNumber: [id number]) trazodone 50 mg tablet RxNorm: 717730 TAKE 1 AND 1/2 TABLET AT BEDTIME FOR 2 WEEKS, MAY INCREASE TO 2 TABLETS IF NECESSARY AFTER THAT 01/27/2015 05/24/2015 Inactive Augmentin 500 mg-125 mg tablet RxNorm: 987609 1 Tablet(s) PO TID 01/07/2015 01/13/2015 Inactive gentamicin 0.3 % eye drops RxNorm: 206046 3 Drop(s) OPH QID 01/07/2015 01/13/2015 Inactive [AttnRPh: Saving apply/adjudicate RxGRP:[id number] RxBIN:[id number] RxPCN: ID#:[id number]] scopolamine 1.5 mg transdermal 72 hour patch RxNorm: 579336 1 Patch TD q72 hours 01/07/2015 11/23/2015 Inactive Synthroid 100 mcg tablet RxNorm: 385513 TAKE ONE TABLET BY MOUTH ONCE A DAY 01/06/2015 04/22/2015 Inactive nystatin 100,000 unit/gram topical powder RxNorm: 375665 APPLY TOPICALLY TWO TIMES A DAY 12/18/2014 03/17/2015 Inactive alprazolam 0.25 mg tablet RxNorm: 307706 TAKE ONE TABLET BY MOUTH DAILY NEEDED 10/30/2014 11/28/2014 Inactive (Response to an electronic controlled substance refill request - RxReferenceNumber: [id number]) alprazolam 0.25 mg tablet RxNorm: 064409 Tablet(s) TAKE ONE TABLET BY MOUTH DAILY 10/30/2014 10/29/2014 Inactive (Response to an electronic controlled substance refill request - RxReferenceNumber: [id number]) Lipitor 10 mg tablet RxNorm: 237325 TAKE ONE TABLET BY MOUTH EVERY DAY 10/30/2014 02/26/2015 Inactive alprazolam 0.25 mg tablet RxNorm: 577733 TAKE ONE TABLET BY MOUTH DAILY 10/07/2014 10/29/2014 Inactive (Response to an electronic controlled substance refill request - RxReferenceNumber: [id number]) alprazolam 0.25 mg tablet RxNorm: 691984 TAKE ONE TABLET BY MOUTH DAILY 10/06/2014 10/07/2014 Inactive (Response to an electronic controlled substance refill request - RxReferenceNumber: [id number]) alprazolam 0.25 mg tablet RxNorm: 667625 Tablet(s) TAKE ONE TABLET BY MOUTH EVERY DAY NEEDED 09/30/2014 10/06/2014 Inactive (Response to an electronic controlled substance refill request - RxReferenceNumber: [id number]) Fioricet 50 mg-325 mg-40 mg tablet RxNorm: 121834 Tablet(s) TAKE ONE TABLET BY MOUTH EVERY 4 HOURS NEEDED FOR headache 09/29/2014 10/12/2014 Inactive (Response to an electronic controlled substance refill request - RxReferenceNumber: [id number]) Bystolic 10 mg tablet RxNorm: 980524 1 Tablet(s) PO daily TAKE ONE TABLET BY MOUTH EVERY DAY 09/29/2014 04/26/2015 Inactive Bystolic 5 mg tablet RxNorm: 874660 TAKE 1 AND 1/2 TABLETS ONCE DAILY 09/24/2014 09/23/2014 Inactive Bystolic 5 mg tablet RxNorm: 710474 Tablet(s) TAKE 1 AND 1/2 TABLETS ONCE DAILY 09/24/2014 09/18/2015 Inactive gentamicin 0.3 % eye drops RxNorm: 405702 3 Drop(s) OPH QID 09/23/2014 09/29/2014 Inactive trazodone 50 mg tablet RxNorm: 354411 TAKE 1 AND 1/2 TABLET AT BEDTIME FOR 2 WEEKS, MAY INCREASE TO 2 TABLETS IF NECESSARY AFTER THAT 09/22/2014 01/26/2015 Inactive Fioricet 50 mg-325 mg-40 mg tablet RxNorm: 515125 TAKE ONE TABLET BY MOUTH EVERY 4 HOURS NEEDED FOR PAIN 09/17/2014 09/28/2014 Inactive (Response to an electronic controlled substance refill request - RxReferenceNumber: [id number]) Duragesic 50 mcg/hr transdermal patch RxNorm: 715345 1 TD q72 hours 08/07/2014 01/06/2015 Inactive [SAVINGS FOR UNINSURED PATIENTS -- BIN:[id number], PCN: [id number], Group: [id number], ID# [id number], Process claim through [employer], for questions: . THIS IS NOT INSURANCE.] alprazolam 0.25 mg tablet RxNorm: 250461 TAKE ONE TABLET BY MOUTH EVERY DAY NEEDED 07/31/2014 08/29/2014 Inactive (Response to an electronic controlled substance refill request - RxReferenceNumber: [id number]) alprazolam 0.25 mg tablet RxNorm: 178148 1 Tablet(s) PO daily as needed TAKE ONE TABLET BY MOUTH EVERY DAY NEEDED 07/30/2014 08/01/2014 Inactive (Response to an electronic controlled substance refill request - RxReferenceNumber: [id number]) Diflucan 150 mg tablet RxNorm: 001882 1 Tablet(s) PO daily 06/25/2014 07/01/2014 Inactive [SAVINGS FOR UNINSURED PATIENTS -- BIN:[id number], PCN: ASPROD1, Group: [id number], ID# [id number], Process claim through [employer], for questions: . THIS IS NOT INSURANCE.] Kenalog 40 mg/mL suspension for injection RxNorm: 8335740 Milliliter(s) Inj 06/23/2014 06/23/2014 Inactive [SAVINGS FOR UNINSURED PATIENTS -- BIN:238769, PCN: ASPROD1, Group: [id number], ID# [id number], Process claim through [employer], for questions: . THIS IS NOT INSURANCE.] ceftriaxone 500 mg solution for injection RxNorm: 983900 Inj 06/23/2014 06/23/2014 Inactive [SAVINGS FOR UNINSURED PATIENTS -- BIN:596467, PCN: ASPROD1, Group: [id number], ID# [id number], Process claim through [employer], for questions: . THIS IS NOT INSURANCE.] Levaquin 500 mg tablet RxNorm: 170240 1 Tablet(s) PO daily 06/23/2014 07/13/2014 Inactive [SAVINGS FOR UNINSURED PATIENTS -- BIN:[id number], PCN: ASPROD1, Group: [id number], ID# [id number], Process claim through [employer], for questions: . THIS IS NOT INSURANCE.] Duragesic 50 mcg/hr transdermal patch RxNorm: 246997 1 TD q72 hours 06/05/2014 08/06/2014 Inactive [SAVINGS FOR UNINSURED PATIENTS -- BIN:864375, PCN: ASPROD1, Group: [id number], ID# [id number], Process claim through [employer], for questions: . THIS IS NOT INSURANCE.] alprazolam 0.25 mg tablet RxNorm: 900553 1 Tablet(s) PO daily as needed TAKE ONE TABLET BY MOUTH EVERY DAY NEEDED 06/02/2014 07/29/2014 Inactive (Response to an electronic controlled substance refill request - RxReferenceNumber: [id number]) nystatin 100,000 unit/gram topical powder RxNorm: 364546 APPLY TO AFFECTED AREA(S) TWO TIMES A DAY 05/01/2014 06/14/2014 Inactive hydrochlorothiazide 25 mg tablet RxNorm: 114460 TAKE ONE TABLET BY MOUTH EVERY DAY MUST CALL MD FOR APPOINTMENT 04/24/2014 10/20/2014 Inactive alprazolam 0.25 mg tablet RxNorm: 540979 Tablet(s) TAKE ONE TABLET BY MOUTH EVERY DAY NEEDED 04/16/2014 06/02/2014 Inactive (Response to an electronic controlled substance refill request - RxReferenceNumber: [id number]) alprazolam 0.25 mg tablet RxNorm: 789463 TAKE ONE TABLET BY MOUTH EVERY DAY NEEDED 04/16/2014 05/15/2014 Inactive (Response to an electronic controlled substance refill request - RxReferenceNumber: [id number]) alprazolam 0.25 mg tablet RxNorm: 067731 TAKE ONE TABLET BY MOUTH EVERY DAY NEEDED 04/16/2014 05/15/2014 Inactive (Response to an electronic controlled substance refill request - RxReferenceNumber: [id number]) alprazolam 0.25 mg tablet RxNorm: 395470 TAKE ONE TABLET BY MOUTH EVERY DAY NEEDED 04/14/2014 04/16/2014 Inactive (Response to an electronic controlled substance refill request - RxReferenceNumber: [id number]) Lipitor 10 mg tablet RxNorm: 580069 TAKE ONE TABLET BY MOUTH EVERY DAY 04/14/2014 09/10/2014 Inactive alprazolam 0.25 mg tablet RxNorm: 471120 TAKE ONE TABLET BY MOUTH EVERY DAY NEEDED 04/14/2014 04/14/2014 Inactive (Response to an electronic controlled substance refill request - RxReferenceNumber: [id number]) alprazolam 0.25 mg tablet RxNorm: 203146 TAKE ONE TABLET BY MOUTH EVERY DAY NEEDED 04/14/2014 04/15/2014 Inactive (Response to an electronic controlled substance refill request - RxReferenceNumber: [id number]) alprazolam 0.25 mg tablet RxNorm: 645974 TAKE ONE TABLET BY MOUTH EVERY DAY NEEDED 04/14/2014 04/14/2014 Inactive (Response to an electronic controlled substance refill request - RxReferenceNumber: [id number]) nystatin 100,000 unit/gram topical powder RxNorm: 909205 1 Application TOP BID 04/03/2014 07/01/2014 Inactive [SAVINGS FOR UNINSURED PATIENTS -- BIN:[id number], PCN: ASPROD1, Group: [id number], ID# [id number], Process claim through [employer], for questions: . THIS IS NOT INSURANCE.] Keflex 500 mg capsule RxNorm: 055243 1 Capsule(s) PO QID 04/03/2014 04/09/2014 Inactive [SAVINGS FOR UNINSURED PATIENTS -- BIN:117797, PCN: ASPROD1, Group: [id number], ID# [id number], Process claim through [employer], for questions: . THIS IS NOT INSURANCE.] Synthroid 100 mcg tablet RxNorm: 815696 1 Tablet(s) PO daily TAKE ONE TABLET BY MOUTH EVERY DAY 04/01/2014 01/05/2015 Inactive [SAVINGS FOR UNINSURED PATIENTS -- BIN:116424, PCN: ASPROD1, Group: [id number], ID# [id number], Process claim through [employer], for questions: . THIS IS NOT INSURANCE.] Duragesic 50 mcg/hr transdermal patch RxNorm: 912649 1 TD q72 hours 03/24/2014 06/04/2014 Inactive [SAVINGS FOR UNINSURED PATIENTS -- BIN:765767, PCN: ASPROD1, Group: [id number], ID# [id number], Process claim through [employer], for questions: . THIS IS NOT INSURANCE.] trazodone 50 mg tablet RxNorm: 276171 TAKE 1 AND 1/2 TABLET AT BEDTIME FOR 2 WEEKS, MAY INCREASE TO 2 TABLETS IF NECESSARY AFTER THAT 03/18/2014 09/13/2014 Inactive nystatin 100,000 unit/gram topical powder RxNorm: 764105 1 Application TOP BID 03/07/2014 03/16/2014 Inactive [SAVINGS FOR UNINSURED PATIENTS -- BIN:[id number], PCN: ASPROD1, Group: [id number], ID# [id number], Process claim through [employer], for questions: . THIS IS NOT INSURANCE.] permethrin 5 % topical cream RxNorm: 739869 1 Application TOP daily 03/07/2014 11/23/2015 Inactive apply head to toe-leave on overnight and wash off in the a.m. May repeat x 1 if needed Diflucan 150 mg tablet RxNorm: 452037 1 Tablet(s) PO daily 03/07/2014 03/09/2014 Inactive [SAVINGS FOR UNINSURED PATIENTS -- BIN:824336, PCN: ASPROD1, Group: [id number], ID# [id number], Process claim through [employer], for questions: . THIS IS NOT INSURANCE.] hydrochlorothiazide 25 mg tablet RxNorm: 810624 TAKE ONE TABLET BY MOUTH EVERY DAY MUST CALL MD FOR APPOINTMENT 03/06/2014 04/23/2014 Inactive Zithromax Z-Sergio 250 mg tablet RxNorm: 630587 Tablet(s) PO as directed 03/04/2014 11/23/2015 Inactive [SAVINGS FOR UNINSURED PATIENTS -- BIN:273670, PCN: ASPROD1, Group: [id number], ID# [id number], Process claim through [employer], for questions: . THIS IS NOT INSURANCE.] Flonase 50 mcg/actuation nasal spray,suspension RxNorm: 050732 1 [place] NASAL daily 03/04/2014 07/01/2014 Inactive [SAVINGS FOR UNINSURED PATIENTS -- BIN:574187, PCN: ASPROD1, Group: [id number], ID# [id number], Process claim through [employer], for questions: . THIS IS NOT INSURANCE.] alprazolam 0.25 mg tablet RxNorm: 992385 1 Tablet(s) PO PRN TAKE ONE TABLET BY MOUTH EVERY DAY NEEDED 02/25/2014 04/14/2014 Inactive (Appended: Controlled substance eRx refill - RxReferenceNumber: [id number]) alprazolam 0.25 mg tablet RxNorm: 485972 TAKE ONE TABLET BY MOUTH EVERY DAY NEEDED 02/21/2014 03/22/2014 Inactive (Response to an electronic controlled substance refill request - RxReferenceNumber: [id number]) alprazolam 0.25 mg tablet RxNorm: 036599 TAKE ONE TABLET BY MOUTH EVERY DAY NEEDED 02/21/2014 03/22/2014 Inactive (Response to an electronic controlled substance refill request - RxReferenceNumber: [id number]) alprazolam 0.25 mg tablet RxNorm: 627434 TAKE ONE TABLET BY MOUTH EVERY DAY NEEDED 02/18/2014 03/19/2014 Inactive (Response to an electronic controlled substance refill request - RxReferenceNumber: [id number]) Cymbalta 60 mg capsule,delayed release RxNorm: 569383 TAKE ONE CAPSULE BY MOUTH TWICE A DAY 02/18/2014 01/13/2015 Inactive Nexium 40 mg capsule,delayed release RxNorm: 499594 TAKE ONE CAPSULE BY MOUTH EVERY DAY 02/18/2014 01/13/2015 Inactive Bactrim DS 800 mg-160 mg tablet RxNorm: 768299 1 Tablet(s) PO BID 02/13/2014 02/19/2014 Inactive probiotic while one antibiotic Bactrim DS 800 mg-160 mg tablet RxNorm: 125831 1 Tablet(s) PO BID 02/13/2014 02/12/2014 Inactive hydrocodone 10 mg-acetaminophen 325 mg tablet RxNorm: 721111 Tablet(s) PO TAKE ONE TO TWO TABLETS BY MOUTH EVERY 6 HOURS NEEDED FOR PAIN 02/06/2014 03/18/2015 Inactive (Appended: Controlled substance eRx refill - RxReferenceNumber: [id number]) Abilify 2 mg tablet RxNorm: 711336 Tablet(s) PO TAKE ONE TABLET BY MOUTH EVERY NIGHT AT BEDTIME 02/03/2014 03/19/2015 Inactive Duragesic 50 mcg/hr transdermal patch RxNorm: 699829 1 TD q72 hours 01/14/2014 03/23/2014 Inactive alprazolam 0.25 mg tablet RxNorm: 982144 1 Tablet(s) PO QDAY PRN 01/14/2014 02/12/2014 Inactive alprazolam 0.25 mg tablet RxNorm: 403813 Tablet(s) PO TAKE ONE TABLET BY MOUTH EVERY DAY NEEDED 01/14/2014 02/24/2014 Inactive (Appended: Controlled substance eRx refill - RxReferenceNumber: [id number]) Lipitor 10 mg tablet RxNorm: 750138 Tablet(s) PO TAKE ONE TABLET BY MOUTH EVERY DAY 01/14/2014 04/13/2014 Inactive Synthroid 100 mcg tablet RxNorm: 547242 Tablet(s) PO TAKE ONE TABLET BY MOUTH EVERY DAY 2013 03/31/2014 Inactive Fioricet 50 mg-325 mg-40 mg tablet RxNorm: 929288 Tablet(s) PO TAKE ONE TABLET BY MOUTH EVERY 4 HOURS NEEDED FOR PAIN 11/27/2013 09/17/2014 Inactive Fioricet 50 mg-325 mg-40 mg tablet RxNorm: 682680 Tablet(s) PO TAKE ONE TABLET BY MOUTH EVERY 4 HOURS NEEDED FOR PAIN 11/25/2013 11/26/2013 Inactive Zithromax Z-Sergio 250 mg tablet RxNorm: 073078 Tablet(s) PO as directed 11/11/2013 01/13/2014 Inactive Bystolic 10 mg tablet RxNorm: 137040 Tablet(s) PO TAKE ONE TABLET BY MOUTH EVERY DAY 10/21/2013 09/28/2014 Inactive Abilify 2 mg tablet RxNorm: 167388 1 Tablet(s) PO QHS 09/25/2013 01/22/2014 Inactive Synthroid 100 mcg tablet RxNorm: 112764 Tablet(s) PO TAKE ONE TABLET BY MOUTH EVERY DAY 09/24/2013 12/25/2013 Inactive Abilify 2 mg tablet RxNorm: 459948 1 Tablet(s) PO QHS 09/24/2013 09/24/2013 Inactive Rocephin 500 mg solution for injection RxNorm: 341426 1ml Milliliter(s) Inj 09/24/2013 09/24/2013 Inactive Rocephin 500 mg solution for injection RxNorm: 273460 1 Milliliter(s) Inj 09/19/2013 09/19/2013 Inactive Bystolic 5 mg tablet RxNorm: 036136 1 1/2 Tablet(s) PO daily 09/17/2013 03/15/2014 Inactive 1 1/2 daily may have 90 day if cheaper Bystolic 5 mg tablet RxNorm: 670594 1 1/2 Tablet(s) PO daily 09/17/2013 09/16/2013 Inactive 1 1/2 daily Lipitor 10 mg tablet RxNorm: 883546 Tablet(s) PO TAKE ONE TABLET BY MOUTH EVERY DAY 09/12/2013 01/13/2014 Inactive hydrocodone 10 mg-acetaminophen 325 mg tablet RxNorm: 583793 Tablet(s) PO TAKE ONE TO TWO TABLETS BY MOUTH EVERY 6 HOURS NEEDED FOR PAIN 09/09/2013 10/29/2017 Inactive (Appended: Controlled substance eRx refill - RxReferenceNumber: [id number]) hydrocodone 10 mg-acetaminophen 325 mg tablet RxNorm: 142883 1 Tablet(s) PO Q6 PRN 09/09/2013 02/06/2014 Inactive hydrocodone 10 mg-acetaminophen 325 mg tablet RxNorm: 203145 Tablet(s) PO TAKE ONE TO TWO TABLETS BY MOUTH EVERY 6 HOURS NEEDED FOR PAIN 09/06/2013 10/29/2017 Inactive (Appended: Controlled substance eRx refill - RxReferenceNumber: [id number]) Norvasc 10 mg tablet RxNorm: 725509 Tablet(s) PO TAKE ONE TABLET BY MOUTH EVERY DAY 09/05/2013 10/25/2015 Inactive trazodone 50 mg tablet RxNorm: 382997 1 1/2 Tablet(s) PO QHS 09/03/2013 03/17/2014 Inactive 75q hs x 2 week may increase to 100mg if nec after that nystatin 100,000 unit/mL oral suspension RxNorm: 541838 6 Milliliter(s) PO QID 08/06/2013 08/15/2013 Inactive Flonase 50 mcg/actuation nasal spray,suspension RxNorm: 121984 2 [place] NASAL daily 08/06/2013 03/03/2014 Inactive nystatin 100,000 unit/mL oral suspension RxNorm: 064888 6 Unit(s) PO QID 08/05/2013 08/05/2013 Inactive Phenergan with Codeine Syrup RxNorm: 5 Milliliter(s) PO Q4 PRN 08/05/2013 12/02/2013 Inactive 8 ounces alprazolam 0.25 mg tablet RxNorm: 151359 1 Tablet(s) PO QDAY PRN 07/29/2013 01/14/2014 Inactive Diflucan 150 mg tablet RxNorm: 600226 1 Tablet(s) PO daily 07/24/2013 07/26/2013 Inactive hydrochlorothiazide 25 mg tablet RxNorm: 042357 Tablet(s) PO TAKE ONE TABLET BY MOUTH EVERY DAY MUST CALL MD FOR APPOINTMENT 07/19/2013 03/05/2014 Inactive Phenergan with Codeine Syrup RxNorm: 10 Milliliter(s) PO Q4 PRN 07/10/2013 08/04/2013 Inactive 8 ounces Rocephin 500 mg solution for injection RxNorm: 974644 1 Inj 07/10/2013 07/10/2013 Inactive cefdinir 300 mg capsule RxNorm: 157951 1 Capsule(s) PO BID 07/10/2013 07/16/2013 Inactive prednisone 10 mg tablet RxNorm: 859840 3 Tablet(s) PO daily 07/10/2013 07/14/2013 Inactive Carafate 100 mg/mL oral suspension RxNorm: 266588 10 Milliliter(s) PO Q6 PRN pt to take carafate 10mL every 6 hours as needed. 07/10/2013 08/05/2014 Inactive Kenalog 40 mg/mL suspension for injection RxNorm: 8449124 1 Milliliter(s) Inj 07/10/2013 07/10/2013 Inactive trazodone 50 mg tablet RxNorm: 729627 1 Tablet(s) PO QHS 07/10/2013 09/02/2013 Inactive sulfamethoxazole 800 mg-trimethoprim 160 mg tablet RxNorm: 699203 1 Tablet(s) PO BID 06/03/2013 06/12/2013 Inactive Synthroid 125 mcg tablet RxNorm: 896187 1 Tablet(s) PO daily 05/07/2013 09/23/2013 Inactive Bystolic 10 mg tablet RxNorm: 164916 1.5 Tablet(s) PO daily 05/07/2013 09/03/2013 Inactive Voltaren 1 % Topical Gel RxNorm: 328569 4 Gram(s) TOP QID apply 4 grams to knees, 2 grams to hands and ankles four times daily. 05/07/2013 09/03/2013 Inactive hydrocodone 10 mg-acetaminophen 325 mg tablet RxNorm: 471618 1 Tablet(s) PO Q6 PRN 04/23/2013 09/09/2013 Inactive Norvasc 10 mg tablet RxNorm: 469889 Tablet(s) PO TAKE ONE TABLET BY MOUTH EVERY DAY 04/23/2013 09/04/2013 Inactive alprazolam 0.25 mg tablet RxNorm: 253688 1 Tablet(s) PO QDAY PRN 03/25/2013 07/22/2013 Inactive Bystolic 10 mg tablet RxNorm: 426169 1 Tablet(s) PO daily TAKE ONE TABLET BY MOUTH EVERY DAY 03/25/2013 05/06/2013 Inactive zolpidem 10 mg tablet RxNorm: 447401 1 Tablet(s) PO HS PRN 03/25/2013 07/09/2013 Inactive gentamicin 0.3 % Eye Drops RxNorm: 8953500 3 Drop(s) OPH QID three gtts to each eye QID x 7 days 03/11/2013 03/10/2013 Inactive gentamicin 0.3 % eye drops RxNorm: 419275 3 Drop(s) OPH QID three gtts to each eye QID x 7 days 03/11/2013 03/17/2013 Inactive Nexium 40 mg capsule,delayed release RxNorm: 607200 Capsule(s) PO TAKE ONE CAPSULE BY MOUTH EVERY DAY 02/15/2013 02/17/2014 Inactive Cymbalta 60 mg capsule,delayed release RxNorm: 101972 Capsule(s) PO TAKE ONE CAPSULE BY MOUTH TWICE A DAY 02/15/2013 02/17/2014 Inactive hydrocodone 10 mg-acetaminophen 325 mg tablet RxNorm: 2678480 1 Tablet(s) PO Q6 PRN 01/22/2013 04/22/2013 Inactive Lipitor 10 mg tablet RxNorm: 722130 Tablet(s) PO TAKE ONE TABLET BY MOUTH EVERY DAY 01/07/2013 09/11/2013 Inactive Cymbalta 60 mg capsule,delayed release RxNorm: 316891 Capsule(s) PO TAKE ONE CAPSULE BY MOUTH TWICE A DAY 01/02/2013 02/14/2013 Inactive Synthroid 100 mcg tablet RxNorm: 477835 1 Tablet(s) PO 12/03/2012 05/06/2013 Inactive Enablex 7.5 mg tablet,extended release RxNorm: 870889 1 Tablet(s) PO daily 11/28/2012 11/27/2012 Inactive Enablex 7.5 mg tablet,extended release RxNorm: 844649 1 Tablet(s) PO daily 11/28/2012 11/28/2012 Inactive scopolamine 1.5 mg 72 hr Transderm Patch RxNorm: 662576 1 Milligram(s) TD q72 hours 11/26/2012 05/06/2013 Inactive hydrochlorothiazide 25 mg tablet RxNorm: 663097 Tablet(s) PO TAKE ONE TABLET BY MOUTH EVERY DAY MUST CALL FOR APPOINTMENT 11/24/2012 07/18/2013 Inactive Cymbalta 60 mg capsule,delayed release RxNorm: 058094 Capsule(s) PO TAKE ONE CAPSULE BY MOUTH TWICE A DAY 10/26/2012 01/01/2013 Inactive Bystolic 10 mg tablet RxNorm: 181065 Tablet(s) PO TAKE ONE TABLET BY MOUTH EVERY DAY 10/12/2012 03/25/2013 Inactive zolpidem 10 mg tablet RxNorm: 949549 1 Tablet(s) PO HS PRN 10/02/2012 01/29/2013 Inactive alprazolam 0.25 mg tablet RxNorm: 025085 1 Tablet(s) PO QDAY PRN 10/02/2012 01/29/2013 Inactive Kenalog 40 mg/mL Susp for Injection RxNorm: 2756187 1 Milliliter(s) Inj 09/24/2012 09/24/2012 Inactive Diflucan 150 mg tablet RxNorm: 185743 1 Tablet(s) PO daily 09/24/2012 09/30/2012 Inactive acyclovir 400 mg tablet RxNorm: 711195 1 Tablet(s) PO QID 09/24/2012 10/08/2012 Inactive Cipro 500 mg tablet RxNorm: 920311 1 Tablet(s) PO BID 09/24/2012 09/30/2012 Inactive Tamiflu 75 mg capsule RxNorm: 566876 1 Capsule(s) PO BID 09/17/2012 09/16/2012 Inactive Tamiflu 75 mg capsule RxNorm: 954009 1 Capsule(s) PO BID 09/17/2012 09/16/2012 Inactive Tamiflu 75 mg capsule RxNorm: 802124 1 Capsule(s) PO BID please disregard order for #14 09/17/2012 09/21/2012 Inactive fluconazole 150 mg tablet RxNorm: 806107 1 Tablet(s) PO daily 09/10/2012 09/13/2012 Inactive ketoconazole 2 % Topical Cream RxNorm: 877109 Application TOP BID apply to affected area BID until gone 08/31/2012 11/01/2017 Inactive Norvasc 10 mg tablet RxNorm: 343574 Tablet(s) PO TAKE ONE TABLET BY MOUTH EVERY DAY 08/29/2012 04/22/2013 Inactive Cipro 500 mg tablet RxNorm: 697620 1 Tablet(s) PO BID 08/17/2012 08/26/2012 Inactive Flagyl 500 mg tablet RxNorm: 321695 1 Tablet(s) PO TID 08/17/2012 08/23/2012 Inactive Cipro 500 mg tablet RxNorm: 747686 1 Tablet(s) PO BID 08/17/2012 08/16/2012 Inactive zolpidem 10 mg tablet RxNorm: 780755 1 Tablet(s) PO HS PRN 08/17/2012 09/15/2012 Inactive Flagyl 500 mg tablet RxNorm: 435636 1 Tablet(s) PO TID 08/17/2012 08/16/2012 Inactive alprazolam 0.25 mg tablet RxNorm: 575132 1 Tablet(s) PO QDAY PRN 08/17/2012 09/15/2012 Inactive [place] Allergy 180 mg tablet RxNorm: 030062 1 Tablet(s) PO daily 08/08/2012 02/03/2013 Inactive hydrochlorothiazide 25 mg tablet RxNorm: 529657 1/2 Tablet(s) PO daily 08/08/2012 11/05/2012 Inactive needs appt Carafate 1 gram tablet RxNorm: 410371 1 Tablet(s) PO QID mix with 10 cc water and dissolve into slurry 08/08/2012 08/21/2012 Inactive hydrocodone 10 mg-acetaminophen 325 mg tablet RxNorm: 3358358 1 Tablet(s) PO Q6 PRN 08/08/2012 01/21/2013 Inactive Synthroid 100 mcg tablet RxNorm: 142668 1 Tablet(s) PO 08/08/2012 12/02/2012 Inactive Cymbalta 60 mg capsule,delayed release RxNorm: 456559 Capsule(s) PO 07/23/2012 10/25/2012 Inactive TAKE ONE CAPSULE BY MOUTH TWICE A DAY Nexium 40 mg capsule,delayed release RxNorm: 722649 Capsule(s) PO 06/20/2012 02/14/2013 Inactive TAKE ONE CAPSULE BY MOUTH EVERY DAY Lipitor 10 mg tablet RxNorm: 602963 Tablet(s) PO 06/20/2012 01/06/2013 Inactive TAKE ONE TABLET BY MOUTH EVERY DAY hydrochlorothiazide 25 mg tablet RxNorm: 175189 1 Tablet(s) PO daily 06/19/2012 08/07/2012 Inactive needs appt alprazolam 0.25 mg tablet RxNorm: 047611 1 Tablet(s) PO QDAY PRN 06/05/2012 07/04/2012 Inactive zolpidem 10 mg tablet RxNorm: 711945 1 Tablet(s) PO HS PRN 06/05/2012 07/04/2012 Inactive zolpidem 10 mg tablet RxNorm: 993576 1 Tablet(s) PO HS PRN 04/16/2012 05/15/2012 Inactive alprazolam 0.25 mg tablet RxNorm: 020978 1 Tablet(s) PO QDAY PRN 04/16/2012 05/15/2012 Inactive Cymbalta 60 mg capsule,delayed release RxNorm: 964380 1 Capsule(s) PO BID 03/22/2012 07/19/2012 Inactive Fioricet 50 mg-325 mg-40 mg tablet RxNorm: 248240 1 Tablet(s) PO Q4 PRN 03/22/2012 11/24/2013 Inactive Bystolic 10 mg tablet RxNorm: 257000 Tablet(s) PO 03/22/2012 10/11/2012 Inactive TAKE ONE TABLET BY MOUTH EVERY DAY potassium chloride ER 10 mEq Tab RxNorm: 850681 1 Tablet(s) PO daily 02/24/2012 03/01/2012 Inactive Lasix 20 mg Tab RxNorm: 437798 1 Tablet(s) PO daily 02/22/2012 02/21/2012 Inactive KCL 10 meq RxNorm: 1 PO daily 02/22/2012 02/21/2012 Inactive potassium chloride ER 10 mEq Tab RxNorm: 276034 1 Tablet(s) PO daily 02/22/2012 02/21/2012 Inactive Lasix 20 mg Tab RxNorm: 388413 1 Tablet(s) PO daily 02/22/2012 02/28/2012 Inactive KCL 10 meq RxNorm: 1 PO daily 02/22/2012 02/22/2012 Inactive potassium chloride ER 10 mEq Tab RxNorm: 370264 1 Tablet(s) PO daily 02/22/2012 02/23/2012 Inactive Rocephin 500 mg Solution for Injection RxNorm: 739327 Inj 02/15/2012 02/15/2012 Inactive Nexium 40 mg capsule,delayed release RxNorm: 369734 1 Capsule(s) PO daily 02/15/2012 No Stop Date Active Bystolic 10 mg Tab RxNorm: 142236 1 Tablet(s) PO daily 02/15/2012 08/12/2012 Inactive alprazolam 0.25 mg tablet RxNorm: 216262 1 Tablet(s) PO QDAY PRN 01/31/2012 02/29/2012 Inactive zolpidem 10 mg tablet RxNorm: 708482 1 Tablet(s) PO HS PRN 01/31/2012 02/29/2012 Inactive alprazolam 0.25 mg Tab RxNorm: 624595 1 Tablet(s) PO QDAY PRN 12/16/2011 01/14/2012 Inactive zolpidem 10 mg Tab RxNorm: 030282 1 Tablet(s) PO HS PRN 12/16/2011 01/14/2012 Inactive Norvasc 10 mg tablet RxNorm: 330624 1 Tablet(s) PO daily 12/02/2011 02/21/2012 Inactive Lipitor 10 mg tablet RxNorm: 750994 1 Tablet(s) PO daily 11/16/2011 05/13/2012 Inactive zolpidem 10 mg Tab RxNorm: 571456 1 Tablet(s) PO HS PRN 10/26/2011 12/15/2011 Inactive alprazolam 0.25 mg Tab RxNorm: 791012 1 Tablet(s) PO QDAY PRN 10/26/2011 12/15/2011 Inactive hydrochlorothiazide 25 mg tablet RxNorm: 105379 1 Tablet(s) PO daily 09/05/2011 03/02/2012 Inactive Synthroid 75 mcg tablet RxNorm: 284797 1 Tablet(s) PO daily 08/01/2011 02/26/2012 Inactive Abilify 2 mg Tab RxNorm: 874149 1 Tablet(s) PO QHS 08/01/2011 09/10/2012 Inactive dicyclomine 10 mg Cap RxNorm: 930848 1 Capsule(s) PO TID 08/01/2011 10/29/2011 Inactive alprazolam 0.25 mg Tab RxNorm: 778197 1 Tablet(s) PO QDAY PRN 07/26/2011 10/25/2011 Inactive Fioricet 50 mg-325 mg-40 mg tablet RxNorm: 700437 1 Tablet(s) PO Q4 PRN 07/14/2011 03/21/2012 Inactive Rocephin 500 mg Solution for Injection RxNorm: 592372 1 Milliliter(s) Inj 07/14/2011 08/01/2011 Inactive Nexium 40 mg Capsule, delayed release RxNorm: 847744 1 Capsule(s) PO daily 05/23/2011 10/06/2011 Inactive Bystolic 10 mg tablet RxNorm: 662456 1 Tablet(s) PO daily 05/23/2011 11/18/2011 Inactive Bystolic 10 mg Tab RxNorm: 063704 1 Tablet(s) PO daily 05/23/2011 05/22/2011 Inactive alprazolam 0.25 mg Tab RxNorm: 416634 1 Tablet(s) PO QDAY PRN 05/23/2011 07/25/2011 Inactive Influenza Virus Vaccine 0.5 mL RxNorm: IM 05/23/2011 05/23/2011 Inactive zolpidem 10 mg Tab RxNorm: 975298 1 Tablet(s) PO HS PRN 05/23/2011 10/25/2011 Inactive Rocephin 500 mg Solution for Injection RxNorm: 057637 1 Milliliter(s) Inj 05/03/2011 07/14/2011 Inactive Kenalog 40 mg/mL Susp for Injection RxNorm: 7628036 1 Milliliter(s) Inj 05/03/2011 07/14/2011 Inactive Bactrim DS 800 mg-160 mg Tab RxNorm: 379869 1 Tablet(s) PO BID 05/03/2011 08/01/2011 Inactive Bystolic 10 mg tablet RxNorm: 121265 1 Tablet(s) PO daily No Start Date Active Flonase 50 mcg/actuation nasal spray,suspension RxNorm: 2707635 2 [place] NASAL daily No Start Date 08/05/2013 Inactive Levaquin 500 mg tablet RxNorm: 174008 Tablet(s) PO No Start Date 04/19/2017 Inactive Duragesic 50 mcg/hr transdermal patch RxNorm: 669488 1 TD q72 hours No Start Date 01/13/2014 Inactive Vesicare 5 mg tablet RxNorm: 269203 1 Tablet(s) PO daily No Start Date 01/06/2015 Inactive Celebrex 200 mg capsule RxNorm: 467387 1 Capsule(s) PO daily No Start Date 04/02/2014 Inactive zolpidem 10 mg Tab RxNorm: 980028 1 Tablet(s) PO HS PRN No Start Date 05/22/2011 Inactive Zyrtec 10 mg Tab RxNorm: 8832395 1 Tablet(s) PO daily No Start Date 08/08/2012 Inactive Flonase 50 mcg/actuation nasal spray,suspension RxNorm: 4977382 1 [place] NASAL daily No Start Date 11/07/2017 Inactive 1 spray to each nostril daily Nexium 40 mg Cap RxNorm: 515484 1 Capsule(s) PO daily No Start Date 05/22/2011 Inactive ketoconazole 2 % Topical Cream RxNorm: 610256 Application TOP BID apply to affected area BID until gone No Start Date 08/30/2012 Inactive aspirin 81 mg tablet RxNorm: 615882 1 Tablet(s) PO daily No Start Date 11/13/2017 Inactive Cymbalta 60 mg capsule,delayed release RxNorm: 711924 1 Capsule(s) PO BID No Start Date 03/21/2012 Inactive alprazolam 0.25 mg Tab RxNorm: 578431 1 Tablet(s) PO QDAY PRN No Start Date 05/22/2011 Inactive baclofen 10 mg tablet RxNorm: 017322 1 Tablet(s) PO TID as needed muscle spasms No Start Date 11/14/2017 Inactive Toprol XL 100 mg 24 hr Tab RxNorm: 424655 1 Tablet(s) PO BID No Start Date 04/25/2011 Inactive Xanax 0.25 mg tablet RxNorm: 956708 1 Tablet(s) PO daily as needed No Start Date 12/27/2015 Inactive Bystolic 10 mg Tab RxNorm: 681246 1 Tablet(s) PO daily No Start Date 05/22/2011 Inactive Fioricet 50 mg-325 mg-40 mg Tab RxNorm: 122035 1 Tablet(s) PO Q4 PRN No Start Date 07/13/2011 Inactive albuterol sulfate HFA 90 mcg/Actuation Aerosol Inhaler RxNorm: 8210235 1 INH Q4 PRN No Start Date 01/06/2015 Inactive Imitrex 50 mg tablet RxNorm: 109127 1 Tablet(s) PO Q8 as needed may repeat x1 dose in 1 hour of inital dose. No Start Date 02/24/2016 Inactive dc fioricet Tessalon 200 mg Cap RxNorm: 938957 1 Capsule(s) PO Q4 PRN No Start Date 02/14/2012 Inactive Zithromax Z-Sergio 250 mg tablet RxNorm: 630410 Tablet(s) PO No Start Date 11/10/2013 Inactive hydrochlorothiazide 25 mg Tab RxNorm: 219580 1 Tablet(s) PO daily No Start Date 09/04/2011 Inactive Fish Oil 1,000 mg Cap RxNorm: 1 Capsule(s) PO TID No Start Date 11/08/2017 Inactive Deplin 15 mg Tab RxNorm: 1 Tablet(s) PO daily No Start Date 08/01/2011 Inactive Brilinta 90 mg tablet RxNorm: 0853262 1 Tablet(s) PO BID No Start Date 11/23/2015 Inactive Synthroid 75 mcg Tab RxNorm: 266897 1 Tablet(s) PO daily No Start Date 07/31/2011 Inactive ciprofloxacin 0.3 % eye drops RxNorm: 116465 2 Drop(s) ophthalmic (eye) Q2H while awake x 2 days, then Q4H x 5 days No Start Date 11/22/2017 Inactive scopolamine 1.5 mg 72 hr Transderm Patch RxNorm: 546334 1 Milligram(s) TD q72 hours No Start Date 11/25/2012 Inactive hydrocodone-acetaminophen 10 mg-325 mg tablet RxNorm: 7870735 1 Tablet(s) PO Q6 PRN No Start Date 08/07/2012 Inactive Phenergan with Codeine Syrup RxNorm: 5-10 Milliliter(s) PO Q6 PRN No Start Date 02/14/2012 Inactive Norvasc 10 mg Tab RxNorm: 126496 1 Tablet(s) PO daily No Start Date 12/01/2011 Inactive Zithromax Z-Sergio 250 mg Tab RxNorm: 976688 Tablet(s) PO No Start Date 08/01/2011 Inactive Medication Administered Medication Codes Instructions Start Date Status ceftriaxone 500 mg solution for injection RxNorm: 9538009 05/28/2018 No longer Active Kenalog 40 mg/mL suspension for injection RxNorm: 3440957 Milliliter 05/28/2018 No longer Active Kenalog 40 mg/mL suspension for injection RxNorm: 4409304 1Milliliter 01/19/2018 No longer Active ceftriaxone 500 mg solution for injection RxNorm: 8161836 500Milligram 01/19/2018 No longer Active Kenalog 40 mg/mL suspension for injection RxNorm: 7565635 1Milliliter 06/27/2017 No longer Active Kenalog 40 mg/mL suspension for injection RxNorm: 2907717 Milliliter 04/20/2017 No longer Active Kenalog 40 mg/mL suspension for injection RxNorm: 4310954 1Milliliter 03/14/2017 No longer Active ceftriaxone 500 mg solution for injection RxNorm: 9044901 1Milliliter 11/28/2016 No longer Active ceftriaxone 500 mg solution for injection RxNorm: 9714821 11/07/2016 No longer Active Kenalog 40 mg/mL suspension for injection RxNorm: 8904928 Milliliter 11/07/2016 No longer Active ceftriaxone 500 mg solution for injection RxNorm: 0048803 12/07/2015 No longer Active ceftriaxone 500 mg solution for injection RxNorm: 3869663 Milliliter 11/24/2015 No longer Active Kenalog 40 mg/mL suspension for injection RxNorm: 9423668 1Milliliter 11/24/2015 No longer Active ketorolac 60 mg/2 mL intramuscular solution RxNorm: 525764 Milliliter 08/27/2015 No longer Active promethazine 25 mg/mL injection solution RxNorm: 764970 Milliliter 08/27/2015 No longer Active ceftriaxone 500 mg solution for injection RxNorm: 0107900 08/10/2015 No longer Active Kenalog 40 mg/mL suspension for injection RxNorm: 0556357 Milliliter 08/10/2015 No longer Active ceftriaxone 500 mg solution for injection RxNorm: 8082337 1Milliliter 07/28/2015 No longer Active Kenalog 40 mg/mL suspension for injection RxNorm: 1370419 Milliliter 03/19/2015 No longer Active ceftriaxone 500 mg solution for injection RxNorm: 107086 06/23/2014 No longer Active Kenalog 40 mg/mL suspension for injection RxNorm: 3117714 Milliliter 06/23/2014 No longer Active Rocephin 500 mg solution for injection RxNorm: 261257 1mlMilliliter 09/24/2013 No longer Active Rocephin 500 mg solution for injection RxNorm: 116386 1Milliliter 09/19/2013 No longer Active Kenalog 40 mg/mL suspension for injection RxNorm: 8657356 1Milliliter 07/10/2013 No longer Active Rocephin 500 mg solution for injection RxNorm: 593270 1 07/10/2013 No longer Active Kenalog 40 mg/mL Susp for Injection RxNorm: 2425655 1Milliliter 09/24/2012 No longer Active Rocephin 500 mg Solution for Injection RxNorm: 729930 02/15/2012 No longer Active Influenza Virus Vaccine 0.5 mL RxNorm: 05/23/2011 No longer Active Immunizations Vaccine Codes Date Status Influenza CVX: 141 06/24/2013 completed Pneumococcal CVX: 33 06/24/2013 completed PPD Unknown 05/13/2013 completed Assessments Condition Codes Effective Dates Low back pain ICD-10: M54.5 ICD-9: 724.2 [...] Visit Reason For Visit Effective Dates Notes nasal discharge 07/10/2018 sinus congestion 05/28/2018 sores [...] Item Item Code Result Date Comp Metabolic Zbb090 NA 141 mEq/L 09/12/2017 Comp Metabolic Hrf122 K 4.1 mEq/L 09/12/2017 Comp Metabolic Fmy231 CL 105 mEq/L 09/12/2017 Comp Metabolic Oyp637 CO2 30.0 mEq/L 09/12/2017 Comp Metabolic Uxt608 ANION GAP 10 09/12/2017 Comp Metabolic Ain415 GLUCOSE 97 mg/dL 09/12/2017 Comp Metabolic Eav891 Creat 0.7 mg/dL 09/12/2017 Comp Metabolic Mpt985 eGFR 91 ml/min/1.73m2 09/12/2017 Comp Metabolic Lad636 BUN 18 mg/dL 09/12/2017 Comp Metabolic Jfd922 B/C Ratio 26.5 Ratio 09/12/2017 Comp Metabolic Rfa518 CALCIUM 9.7 mg/dL 09/12/2017 Comp Metabolic Ntg676 ALK PHOS 60 U/L 09/12/2017 Comp Metabolic Jit993 AST(SGOT) 22 U/L 09/12/2017 Comp Metabolic Ctg936 ALT(SGPT) 23 U/L 09/12/2017 Comp Metabolic Jpd604 BILI T 0.4 mg/dL 09/12/2017 Comp Metabolic Tbi632 ALBUMIN 3.8 g/dL 09/12/2017 Comp Metabolic Exc211 TPRO 6.4 g/dL 09/12/2017 Comp Metabolic Pum445 GLOB 2.6 g/dL 09/12/2017 Comp Metabolic Ijq947 A/G Ratio 1.5 Ratio 09/12/2017 Comp Metabolic Fls979 Osmo 283 mOsmo 09/12/2017 Cbc With Differential [...] 30.7 pg 09/12/2017 Cbc With Differential Ord2 [place]% 7.2 % 09/12/2017 Cbc With Differential Ord2 MCHC 32.2 pg 09/12/2017 Cbc With Differential Ord2 Eos% 3.9 % 09/12/2017 Cbc With Differential Ord2 Baso% 0.8 % 09/12/2017 Cbc With Differential Ord2 PLT 232 K/ul 09/12/2017 Cbc With Differential Ord2 RDW 13.2 % 09/12/2017 Cbc With Differential Ord2 Neut ABS# 4.50 K/ul 09/12/2017 Cbc With Differential Ord2 Lymph ABS# 2.46 K/ul 09/12/2017 Cbc With Differential Ord2 [place] ABS# 0.6 K/ul 09/12/2017 Cbc With Differential [...] 26.9 % 11/07/2016 Cbc With Differential Ord2 [place]% 6.1 % 11/07/2016 Cbc With Differential Ord2 [...] 2.48 K/ul 11/07/2016 Cbc With Differential Ord2 [place] ABS# 0.6 K/ul 11/07/2016 Cbc With Differential Ord2 Eos ABS# 0.3 K/ul 11/07/2016 Cbc With Differential Ord2 Baso ABS# 0.1 K/ul 11/07/2016 Comp Metabolic Ycw173 NA 139 mEq/L 11/07/2016 Comp Metabolic Xon904 K 3.8 mEq/L 11/07/2016 Comp Metabolic Xqi749 CL 106 mEq/L 11/07/2016 Comp Metabolic Atw112 CO2 25.0 mEq/L 11/07/2016 Comp Metabolic Nsi081 ANION GAP 12 11/07/2016 Comp Metabolic Blg716 GLUCOSE 98 mg/dL 11/07/2016 Comp Metabolic Fxu677 Creat 0.8 mg/dL 11/07/2016 Comp Metabolic Pie667 eGFR 71 ml/min/1.73m2 11/07/2016 Comp Metabolic Tyw077 BUN 36 mg/dL 11/07/2016 Comp Metabolic Sqq292 B/C Ratio 42.9 Ratio 11/07/2016 Comp Metabolic Wmq222 CALCIUM 9.9 mg/dL 11/07/2016 Comp Metabolic Rrd053 ALK PHOS 57 U/L 11/07/2016 Comp Metabolic Tez602 AST(SGOT) 24 U/L 11/07/2016 Comp Metabolic Xgk115 ALT(SGPT) 28 U/L 11/07/2016 Comp Metabolic Qpy579 BILI T 0.4 mg/dL 11/07/2016 Comp Metabolic Qwj076 ALBUMIN 4.2 g/dL 11/07/2016 Comp Metabolic Ciz108 TPRO 7.0 g/dL 11/07/2016 Comp Metabolic Nws507 GLOB 2.8 g/dL 11/07/2016 Comp Metabolic Dvx279 A/G Ratio 1.5 Ratio 11/07/2016 Comp Metabolic Iha555 Osmo 286 mOsmo 11/07/2016 Free T4 Vmj595 FREE T4 0.75 ng/dL 11/07/2016 Tsh Ord6 hTSH II 3.46 uIU/mL 11/07/2016 Comp Metabolic Sbr393 NA 138 mEq/L 05/10/2016 Comp Metabolic Ojo194 K 3.8 mEq/L 05/10/2016 Comp Metabolic Zzm585 CL 102 mEq/L 05/10/2016 Comp Metabolic Jxk781 CO2 29.0 mEq/L 05/10/2016 Comp Metabolic Lgp193 ANION GAP 11 05/10/2016 Comp Metabolic Nnf545 GLUCOSE 107 mg/dL 05/10/2016 Comp Metabolic Dzd232 Creat 0.7 mg/dL 05/10/2016 Comp Metabolic Zhk296 eGFR 93 ml/min/1.73m2 05/10/2016 Comp Metabolic Vgl669 BUN 18 mg/dL 05/10/2016 Comp Metabolic Eeu061 B/C Ratio 26.9 Ratio 05/10/2016 Comp Metabolic Owm324 CALCIUM 9.8 mg/dL 05/10/2016 Comp Metabolic Avt742 ALK PHOS 60 U/L 05/10/2016 Comp Metabolic Stj296 AST(SGOT) 21 U/L 05/10/2016 Comp Metabolic Qhm783 ALT(SGPT) 23 U/L 05/10/2016 Comp Metabolic Zfh147 BILI T 0.5 mg/dL 05/10/2016 Comp Metabolic Jfl342 ALBUMIN 4.1 g/dL 05/10/2016 Comp Metabolic Ffp363 TPRO 6.7 g/dL 05/10/2016 Comp Metabolic Jxk881 GLOB 2.7 g/dL 05/10/2016 Comp Metabolic Iwf969 A/G Ratio 1.5 Ratio 05/10/2016 Comp Metabolic Goj436 Osmo 278 mOsmo 05/10/2016 Lipid Ord30 CHOL 169 mg/dL 05/10/2016 Lipid Ord30 HDL 50.0 mg/dl 05/10/2016 Lipid Ord30 TRIG 161 mg/dL 05/10/2016 Lipid Ord30 LDL 87 mg/dL 05/10/2016 Lipid Ord30 C/HDL 3.4 Ratio 05/10/2016 Comp Metabolic Dbi254 NA 137 mEq/L 06/12/2015 Comp Metabolic Hes199 K 3.8 mEq/L 06/12/2015 Comp Metabolic Ruq971 CL 104 mEq/L 06/12/2015 Comp Metabolic Puh557 CO2 24.0 mEq/L 06/12/2015 Comp Metabolic Xkc592 ANION GAP 13 06/12/2015 Comp Metabolic Vws961 GLUCOSE 92 mg/dL 06/12/2015 Comp Metabolic Ays181 Creat 0.7 mg/dL 06/12/2015 Comp Metabolic Tgx713 eGFR 87 ml/min/1.73m2 06/12/2015 Comp Metabolic Cwf082 BUN 31 mg/dL 06/12/2015 Comp Metabolic Erj127 B/C Ratio 43.7 Ratio 06/12/2015 Comp Metabolic Nza493 CALCIUM 10.0 mg/dL 06/12/2015 Comp Metabolic Bxm088 ALK PHOS 58 U/L 06/12/2015 Comp Metabolic Hpc486 AST(SGOT) 32 U/L 06/12/2015 Comp Metabolic Vqv668 ALT(SGPT) 33 U/L 06/12/2015 Comp Metabolic Tid135 BILI T 0.5 mg/dL 06/12/2015 Comp Metabolic Mwx963 ALBUMIN 4.1 g/dL 06/12/2015 Comp Metabolic Guu938 TPRO 6.6 g/dL 06/12/2015 Comp Metabolic Pot696 GLOB 2.5 g/dL 06/12/2015 Comp Metabolic Bzn894 A/G Ratio 1.6 Ratio 06/12/2015 Comp Metabolic Abk051 Osmo 280 mOsmo 06/12/2015 Cbc With Differential [...] Differential Ord2 RDW 14.2 % 06/12/2015 CBC 1213014 WBC 8.7 10e9/L 04/30/2013 CBC 0509735 RBC 4.63 10e12/L 04/30/2013 CBC 0622710 HGB 14.1 g/dL 04/30/2013 CBC 5707676 HCT DET 42.2 % 04/30/2013 CBC 3170661 MCV 91.1 fL 04/30/2013 CBC 7356311 MCH 30.5 pg 04/30/2013 CBC 7128392 MCHC 33.4 g/dL 04/30/2013 CBC 0254913 PLT 248 10e9/L 04/30/2013 CBC 8068295 MPV 12.1 fL 04/30/2013 CBC 8054295 LARA % 59.0 % 04/30/2013 CBC 5506239 LY % 27.6 % 04/30/2013 CBC 9980139 MON % 8.0 % 04/30/2013 CBC 5615101 EOS % 4.8 % 04/30/2013 CBC 3274771 BASO % 0.6 % 04/30/2013 CBC 1627363 RDW 13.3 % 04/30/2013 CBC 9396579 ABS LARA 5.13 10e9/L 04/30/2013 CBC 3246095 ABS LYMPH 2.40 10e9/L 04/30/2013 CBC 3199339 ABS MONO 0.70 10e9/L 04/30/2013 CBC 9591840 ABS EOS 0.42 10e9/L 04/30/2013 CBC 8740378 ABS BASO 0.05 10e9/L 04/30/2013 CBC 5253461 RDW-SD 43.1 fL 04/30/2013 TSH 3715693 TSH 4.339 uIU/ML 04/30/2013 A1C HPLC 8145410 A1C HPLC 53378-5 5.6 % 04/30/2013 FREE T4 4735501 FREE T4 0.84 NG/DL 04/30/2013 GFR CALC 1018411 GFR AA >60 ML/MIN 04/30/2013 GFR CALC 5316546 GFR NON-AA >60 ML/MIN 04/30/2013 CHEM 14 3557300 AST 22 U/L 04/30/2013 CHEM 14 2060335 ALT 22 IU/L 04/30/2013 CHEM 14 5512449 BUN 24 MG/DL 04/30/2013 CHEM 14 0799965 ALBUMIN 4.2 GM/DL 04/30/2013 CHEM 14 7504360 CHLORIDE 107 MMOL/L 04/30/2013 CHEM 14 4648837 BILI TOT 0.3 MG/DL 04/30/2013 CHEM 14 4672766 ALK PHOS 88 U/L 04/30/2013 CHEM 14 8627261 SODIUM 141 MMOL/L 04/30/2013 CHEM 14 8585764 CREATININE 0.60 MG/DL 04/30/2013 CHEM 14 5504398 CALCIUM 9.9 MG/DL 04/30/2013 CHEM 14 6614326 POTASSIUM 3.7 MMOL/L 04/30/2013 CHEM 14 8410390 PROT TOT 6.6 GM/DL 04/30/2013 CHEM 14 0890010 GLUCOSE 123 MG/DL 04/30/2013 CHEM 14 0069216 BICARB 25 MMOL/L 04/30/2013 CHEM 14 9410826 ANION GAP 9 MEQ/L 04/30/2013 LIPID GRP HDL TEST 46 MG/DL 04/30/2013 LIPID GRP TRIG 148 MG/DL 04/30/2013 LIPID GRP TEST LDL 75 MG/DL 04/30/2013 LIPID GRP CHOL 151 MG/DL 04/30/2013 LIPID GRP RCHOL/HDL 3.28 RATIO 04/30/2013 TSH 8264337 TSH 3.341 uIU/ML 11/29/2012 CBC 8647159 WBC 8.4 10e9/L 11/29/2012 CBC 5398946 RBC 4.77 10e12/L 11/29/2012 CBC 8288574 HGB 14.9 g/dL 11/29/2012 CBC 8213574 HCT DET 44.2 % 11/29/2012 CBC 6103287 MCV 92.7 fL 11/29/2012 CBC 6173772 MCH 31.2 pg 11/29/2012 CBC 2194247 MCHC 33.7 g/dL 11/29/2012 CBC 5888300 PLT 253 10e9/L 11/29/2012 CBC 2959889 MPV 11.8 fL 11/29/2012 CBC 2472065 LARA % 54.9 % 11/29/2012 CBC 8275712 LY % 29.0 % 11/29/2012 CBC 3463179 MON % 10.4 % 11/29/2012 CBC 6872130 EOS % 5.1 % 11/29/2012 CBC 6534322 BASO % 0.6 % 11/29/2012 CBC 8437123 RDW 13.8 % 11/29/2012 CBC 3086170 ABS LARA 4.61 10e9/L 11/29/2012 CBC 7787437 ABS LYMPH 2.44 10e9/L 11/29/2012 CBC 3602838 ABS MONO 0.87 10e9/L 11/29/2012 CBC 5992234 ABS EOS 0.43 10e9/L 11/29/2012 CBC 5181745 ABS BASO 0.05 10e9/L 11/29/2012 CBC 3216988 RDW-SD 45.9 fL 11/29/2012 CHEM 14 1113111 AST 25 U/L 11/29/2012 CHEM 14 7233462 ALT 26 IU/L 11/29/2012 CHEM 14 6811021 BUN 25 MG/DL 11/29/2012 CHEM 14 2667072 ALBUMIN 4.4 GM/DL 11/29/2012 CHEM 14 1328779 CHLORIDE 106 MMOL/L 11/29/2012 CHEM 14 0417010 BILI TOT 0.4 MG/DL 11/29/2012 CHEM 14 9676125 ALK PHOS 86 U/L 11/29/2012 CHEM 14 8383847 SODIUM 141 MMOL/L 11/29/2012 CHEM 14 4650581 CREATININE 0.80 MG/DL 11/29/2012 CHEM 14 0773475 CALCIUM 9.7 MG/DL 11/29/2012 CHEM 14 2788586 POTASSIUM 4.0 MMOL/L 11/29/2012 CHEM 14 8036960 PROT TOT 6.6 GM/DL 11/29/2012 CHEM 14 1908347 GLUCOSE 112 MG/DL 11/29/2012 CHEM 14 6843897 BICARB 29 MMOL/L 11/29/2012 CHEM 14 6099023 ANION GAP 6 MEQ/L 11/29/2012 A1C HPLC 0591841 A1C HPLC 97235-2 5.5 % 11/29/2012 LIPID GRP HDL TEST 54 MG/DL 11/29/2012 LIPID GRP TRIG 77 MG/DL 11/29/2012 LIPID GRP TEST LDL 78 MG/DL 11/29/2012 LIPID GRP CHOL 147 MG/DL 11/29/2012 LIPID GRP RCHOL/HDL 2.72 RATIO 11/29/2012 FREE T4 2922302 FREE T4 1.23 NG/DL 11/29/2012 GFR CALC 2125784 GFR AA >60 ML/MIN 11/29/2012 GFR CALC 0532680 GFR NON-AA >60 ML/MIN 11/29/2012 CHEM 14 7998735 AST 23 U/L 08/07/2012 CHEM 14 3040997 ALT 34 IU/L 08/07/2012 CHEM 14 0123680 BUN 26 MG/DL 08/07/2012 CHEM 14 4089827 ALBUMIN 4.4 GM/DL 08/07/2012 CHEM 14 2553696 CHLORIDE 105 MMOL/L 08/07/2012 CHEM 14 9641618 BILI TOT 0.5 MG/DL 08/07/2012 CHEM 14 0739461 ALK PHOS 79 U/L 08/07/2012 CHEM 14 0340675 SODIUM 140 MMOL/L 08/07/2012 CHEM 14 6900294 CREATININE 0.71 MG/DL 08/07/2012 CHEM 14 8420228 CALCIUM 10.4 MG/DL 08/07/2012 CHEM 14 2838372 POTASSIUM 3.8 MMOL/L 08/07/2012 CHEM 14 6991446 PROT TOT 6.8 GM/DL 08/07/2012 CHEM 14 6707199 GLUCOSE 104 MG/DL 08/07/2012 CHEM 14 7255608 BICARB 27 MMOL/L 08/07/2012 CHEM 14 4557801 ANION GAP 8 MEQ/L 08/07/2012 A1C HPLC 5957435 A1C HPLC 17291-3 5.4 % 08/07/2012 FREE T4 3703996 FREE T4 1.11 NG/DL 08/07/2012 LIPID GRP HDL TEST 50 MG/DL 08/07/2012 LIPID GRP TRIG 127 MG/DL 08/07/2012 LIPID GRP TEST LDL 93 MG/DL 08/07/2012 LIPID GRP CHOL 168 MG/DL 08/07/2012 LIPID GRP RCHOL/HDL 3.36 RATIO 08/07/2012 CBC 2783938 WBC 8.7 10e9/L 08/07/2012 CBC 7257971 RBC 4.67 10e12/L 08/07/2012 CBC 7192670 HGB 14.4 g/dL 08/07/2012 CBC 4883951 HCT DET 42.8 % 08/07/2012 CBC 0632953 MCV 91.6 fL 08/07/2012 CBC 9858343 MCH 30.8 pg 08/07/2012 CBC 9303305 MCHC 33.6 g/dL 08/07/2012 CBC 8738088 PLT 271 10e9/L 08/07/2012 CBC 7602524 MPV 12.3 fL 08/07/2012 CBC 0738897 LARA % 50.6 % 08/07/2012 CBC 4626790 LY % 34.9 % 08/07/2012 CBC 7092343 MON % 9.1 % 08/07/2012 CBC 2739449 EOS % 5.1 % 08/07/2012 CBC 1226263 BASO % 0.3 % 08/07/2012 CBC 8320732 RDW 13.6 % 08/07/2012 CBC 5672597 ABS LARA 4.40 10e9/L 08/07/2012 CBC 8981069 ABS LYMPH 3.04 10e9/L 08/07/2012 CBC 6057968 ABS MONO 0.79 10e9/L 08/07/2012 CBC 3276659 ABS EOS 0.44 10e9/L 08/07/2012 CBC 1056130 ABS BASO 0.03 10e9/L 08/07/2012 CBC 9258027 RDW-SD 44.1 fL 08/07/2012 TSH 0012924 TSH 7.419 uIU/ML 08/07/2012 GFR CALC 2147581 GFR AA >60 ML/MIN 08/07/2012 GFR CALC 7451512 GFR NON-AA >60 ML/MIN 08/07/2012 A1C HPLC 3481275 A1C HPLC 11525-4 5.3 % 02/21/2012 TSH 3005445 TSH 0.832 uIU/ML 02/16/2012 FREE T4 7657888 FREE T4 1.04 NG/DL 02/16/2012 GFR CALC 5528388 GFR AA >60 ML/MIN 02/16/2012 GFR CALC 3143939 GFR NON-AA >60 ML/MIN 02/16/2012 [facility] GLUCOSE 112 MG/DL 02/16/2012 [facility] CREATININE 0.65 MG/DL 02/16/2012 [facility] BUN 17 MG/DL 02/16/2012 [facility] SODIUM 144 MMOL/L 02/16/2012 BMP POTASSIUM 4.0 MMOL/L 02/16/2012 [facility] CHLORIDE 107 MMOL/L 02/16/2012 [facility] BICARB 29 MMOL/L 02/16/2012 [facility] ANION GAP 8 MEQ/L 02/16/2012 [facility] CALCIUM 9.5 MG/DL 02/16/2012 CBC 1772141 WBC 7.1 10e9/L 02/16/2012 CBC 0194950 RBC 4.47 10e12/L 02/16/2012 CBC 9365792 HGB 13.5 g/dL 02/16/2012 CBC 1157581 HCT DET 40.7 % 02/16/2012 CBC 3736504 MCV 91.1 fL 02/16/2012 CBC 6897293 MCH 30.2 pg 02/16/2012 CBC 6741096 MCHC 33.2 g/dL 02/16/2012 CBC 7162728 PLT 238 10e9/L 02/16/2012 CBC 8139293 MPV 11.4 fL 02/16/2012 CBC 3226810 LARA % 55.7 % 02/16/2012 CBC 2452107 LY % 29.6 % 02/16/2012 CBC 3196611 MON % 9.2 % 02/16/2012 CBC 8181329 EOS % 5.1 % 02/16/2012 CBC 1586847 BASO % 0.4 % 02/16/2012 CBC 4796009 RDW 13.0 % 02/16/2012 CBC 5421348 ABS LARA 3.95 10e9/L 02/16/2012 CBC 8784662 ABS LYMPH 2.10 10e9/L 02/16/2012 CBC 4205220 ABS MONO 0.65 10e9/L 02/16/2012 CBC 6881362 ABS EOS 0.36 10e9/L 02/16/2012 CBC 5494045 ABS BASO 0.03 10e9/L 02/16/2012 CBC 7987659 RDW-SD 42.4 fL 02/16/2012 URINALYSIS NONAUTO W/O SCOPE 53481 Specific [place] 1.015 DateTime(Free Text in Aprima) URINALYSIS NONAUTO W/O SCOPE 10818 PH 7 DateTime(Free Text in Aprima) URINALYSIS NONAUTO W/O SCOPE 21605 GLUCOSE neg DateTime(Free Text in Aprima) URINALYSIS NONAUTO W/O SCOPE 93591 Protein 1+ DateTime(Free Text in Aprima) URINALYSIS NONAUTO W/O SCOPE 88354 Blood neg DateTime(Free Text in Aprima) URINALYSIS NONAUTO W/O SCOPE 29659 Bilirubin neg DateTime(Free Text in Aprima) URINALYSIS NONAUTO W/O SCOPE 30956 Ketones neg DateTime(Free Text in Aprima) URINALYSIS NONAUTO W/O SCOPE 96172 Urobilinogen neg DateTime(Free Text in Aprima) URINALYSIS NONAUTO W/O SCOPE 72024 Nitrite postive DateTime(Free Text in Aprima) URINALYSIS NONAUTO W/O SCOPE 38960 Leukocytes 3+ DateTime(Free Text in Aprima) URINALYSIS NONAUTO W/O SCOPE 22537 Specific [place] 1.030 DateTime(Free Text in Aprima) URINALYSIS NONAUTO W/O SCOPE 38747 PH 6 DateTime(Free Text in Aprima) URINALYSIS NONAUTO W/O SCOPE 48675 GLUCOSE neg DateTime(Free Text in Aprima) URINALYSIS NONAUTO W/O SCOPE 39416 Protein neg DateTime(Free Text in Aprima) URINALYSIS NONAUTO W/O SCOPE 49784 Blood neg DateTime(Free Text in Aprima) URINALYSIS NONAUTO W/O SCOPE 88828 Bilirubin neg DateTime(Free Text in Aprima) URINALYSIS NONAUTO W/O SCOPE 78307 Ketones neg DateTime(Free Text in Aprima) URINALYSIS NONAUTO W/O SCOPE 63159 Urobilinogen neg DateTime(Free Text in Aprima) URINALYSIS NONAUTO W/O SCOPE 94288 Nitrite neg DateTime(Free Text in Aprima) URINALYSIS NONAUTO W/O SCOPE 82141 Leukocytes trace DateTime(Free Text in Aprima) URINALYSIS NONAUTO W/O SCOPE 65054 Specific [place] 1.005 DateTime(Free Text in Aprima) URINALYSIS NONAUTO W/O SCOPE 09735 PH 5 DateTime(Free Text in Aprima) URINALYSIS NONAUTO W/O SCOPE 42974 GLUCOSE neg DateTime(Free Text in Aprima) URINALYSIS NONAUTO W/O SCOPE 76213 Protein neg DateTime(Free Text in Aprima) URINALYSIS NONAUTO W/O SCOPE 01446 Blood neg DateTime(Free Text in Aprima) URINALYSIS NONAUTO W/O SCOPE 83851 Bilirubin neg DateTime(Free Text in Aprima) URINALYSIS NONAUTO W/O SCOPE 10977 Ketones neg DateTime(Free Text in Aprima) URINALYSIS NONAUTO W/O SCOPE 02828 Urobilinogen neg DateTime(Free Text in Aprima) URINALYSIS NONAUTO W/O SCOPE 04731 Nitrite neg DateTime(Free Text in Aprima) URINALYSIS NONAUTO W/O SCOPE 18454 Leukocytes neg DateTime(Free Text in Aprima) UA 88829 Specific [place] 1.030 DateTime(Free Text in Aprima) UA 30460 PH 5 DateTime(Free Text in Aprima) UA 23900 GLUCOSE neg DateTime(Free Text in Aprima) UA 85689 Protein trace DateTime(Free Text in Aprima) UA 92018 Blood large DateTime(Free Text in Aprima) UA 37451 Bilirubin neg DateTime(Free Text in Aprima) UA 52883 Ketones neg DateTime(Free Text in Aprima) UA 82192 Urobilinogen neg DateTime(Free Text in Aprima) UA 21259 Nitrite neg DateTime(Free Text in Aprima) UA 36964 Leukocytes large DateTime(Free Text in Apr) Review of Systems System Result Effective Dates Constitutional recent illness 07/10/2018 Constitutional No anorexia [...] distress 07/28/2015 None Full Exam - General 1995 Constitutional general appearance Overall: well nourished 07/28/2015 [...] Codes Date URINALYSIS NONAUTO W/O SCOPE CPT-4: 83177 07/10/2018 TRIAMCINOLONE ACET INJ NOS CPT-4: J3301 05/28/2018 ROCEPHIN, PER 250 MG CPT- 4: J0696 05/28/2018 ROCEPHIN, PER 250 MG CPT- 4: J0696 01/19/2018 TRIAMCINOLONE ACET INJ NOS CPT-4: J3301 01/19/2018 PPPS, SUBSEQ VISIT CPT- 4: G0439 11/23/2017 TRIAMCINOLONE ACET INJ NOS CPT-4: J3301 06/27/2017 THER/PROPH/DIAG INJ SC/IM CPT-4: 64014 04/20/2017 TRIAMCINOLONE ACET INJ NOS CPT-4: J3301 04/20/2017 TRIAMCINOLONE ACET INJ NOS CPT-4: J3301 03/14/2017 ROCEPHIN, PER 250 MG CPT- 4: J0696 03/14/2017 DESTRUCT PREMALG LESION CPT-4: 62265 12/05/2016 DESTRUCT PREMALG LES 2-14 CPT-4: 59191 12/05/2016 URINALYSIS NONAUTO W/O SCOPE CPT-4: 55924 11/28/2016 ROCEPHIN, PER 250 MG CPT- 4: J0696 11/28/2016 PPPS, SUBSEQ VISIT CPT- 4: G0439 11/07/2016 THER/PROPH/DIAG INJ SC/IM CPT-4: 92978 11/07/2016 TRIAMCINOLONE ACET INJ NOS CPT-4: J3301 11/07/2016 ROCEPHIN, PER 250 MG CPT- 4: J0696 11/07/2016 THER/PROPH/DIAG INJ SC/IM CPT-4: 65102 08/15/2016 TRIAMCINOLONE ACET INJ NOS CPT-4: J3301 08/15/2016 ROCEPHIN, PER 250 MG CPT- 4: J0696 08/15/2016 URINALYSIS NONAUTO W/O SCOPE CPT-4: 54487 05/05/2016 ROCEPHIN, PER 250 MG CPT- 4: J0696 12/07/2015 TRIAMCINOLONE ACET INJ NOS CPT-4: J3301 11/24/2015 ROCEPHIN, PER 250 MG CPT- 4: J0696 11/24/2015 THER/PROPH/DIAG INJ SC/IM CPT-4: 60242 11/24/2015 THER/PROPH/DIAG INJ SC/IM CPT-4: 36092 08/27/2015 KETOROLAC TROMETHAMINE INJ CPT-4: J1885 08/27/2015 PROMETHAZINE HCL INJECTION CPT-4: J2550 08/27/2015 THER/PROPH/DIAG INJ SC/IM CPT-4: 54495 08/10/2015 TRIAMCINOLONE ACET INJ NOS CPT-4: J3301 08/10/2015 ROCEPHIN, PER 250 MG CPT- 4: J0696 08/10/2015 C LUISUN RTS (CULTURE OTHR SPECIMN AEROBIC) CPT-4: 40908 07/28/2015 THER/PROPH/DIAG INJ SC/IM CPT-4: 02901 03/19/2015 TRIAMCINOLONE ACET INJ NOS CPT-4: J3301 03/19/2015 ROCEPHIN, PER 250 MG CPT- 4: J0696 06/23/2014 TRIAMCINOLONE ACET INJ NOS CPT-4: J3301 06/23/2014 INJ TRIGGER POINT 1/2 MUSCL CPT-4: 79805 06/05/2014 URINALYSIS NONAUTO W/O SCOPE CPT-4: 67958 02/11/2014 URINALYSIS NONAUTO W/O SCOPE CPT-4: 35747 10/15/2013 ROCEPHIN, PER 250 MG CPT- 4: J0696 09/24/2013 THER/PROPH/DIAG INJ SC/IM CPT-4: 69262 09/19/2013 ROCEPHIN, PER 250 MG CPT- 4: J0696 09/19/2013 PRESCRIP TRANSMIT VIA ERX SY CPT-4: G8553 08/05/2013 ROCEPHIN, PER 250 MG CPT- 4: J0696 07/10/2013 THER/PROPH/DIAG INJ SC/IM CPT-4: 04002 07/10/2013 TRIAMCINOLONE ACET INJ NOS CPT-4: J3301 07/10/2013 PRESCRIP TRANSMIT VIA ERX SY CPT-4: G8553 07/10/2013 89222 EST. PATIENT, LEVEL III CPT-4: 61523 06/03/2013 PRESCRIP TRANSMIT VIA ERX SY CPT-4: G8553 06/03/2013 PRESCRIP TRANSMIT VIA ERX SY CPT-4: G8553 05/07/2013 ROUTINE VENIPUNCTURE CPT- 4: 89236 04/30/2013 ROUTINE VENIPUNCTURE CPT- 4: 03183 11/29/2012 TRIAMCINOLONE ACET INJ NOS CPT-4: J3301 09/24/2012 THER/PROPH/DIAG INJ SC/IM CPT-4: 17375 09/24/2012 URINALYSIS NONAUTO W/O SCOPE CPT-4: 35450 09/24/2012 PRESCRIP TRANSMIT VIA ERX SY CPT-4: G8553 09/24/2012 PRESCRIP TRANSMIT VIA ERX SY CPT-4: G8553 09/10/2012 PRESCRIP TRANSMIT VIA ERX SY CPT-4: G8553 08/08/2012 ROUTINE VENIPUNCTURE CPT- 4: 38590 08/07/2012 ROUTINE VENIPUNCTURE CPT- 4: 35381 02/16/2012 URINALYSIS NONAUTO W/O SCOPE CPT-4: 45763 02/15/2012 ROCEPHIN, PER 250 MG CPT- 4: J0696 02/15/2012 PRESCRIP TRANSMIT VIA ERX SY CPT-4: G8553 02/15/2012 ROUTINE VENIPUNCTURE CPT- 4: 88711 11/08/2011 ROCEPHIN, PER 250 MG CPT- 4: J0696 07/14/2011 THER/PROPH/DIAG INJ SC/IM CPT-4: 31794 07/14/2011 Influenza Virus Vaccine, Split Virus, >3 Yrs, IM CPT-4: 74776 05/23/2011 IMMUNIZATION ADMIN CPT- 4: 06482 05/23/2011 THER/PROPH/DIAG INJ SC/IM CPT-4: 72942 05/03/2011 ROCEPHIN, PER 250 MG CPT- 4: J0696 05/03/2011 TRIAMCINOLONE ACET INJ NOS CPT-4: J3301 05/03/2011 Vital Signs Date Vital 07/10/2018 Blood Pressure 1: 156/82 Code: 8480-6 BMI: 31.1 Code: 38582-5 Heart Rate 1: 63 bpm Height: 4'11" SpO2: 99% Weight: 154 lbs 05/28/2018 Blood Pressure 1: 142/80 Code: 8480-6 Heart Rate 1: 82 bpm Height: SpO2: 97% Temperature: 35.9 (C) / 96.6 (F) Weight: 02/07/2018 Height: Weight: 01/19/2018 Blood Pressure 1: 128/76 Code: 8480-6 BMI: 31.2 Code: 53861-2 Heart Rate 1: 71 bpm Height: 4'11" SpO2: 96% Temperature: 36.5 (C) / 97.7 (F) Weight: 154 lbs 8 oz 11/23/2017 Blood Pressure 1: 146/80 Code: 8480-6 BMI: 31.7 Code: 38206-8 Heart Rate 1: 64 bpm Height: 4'11" SpO2: 97% Waist Measure (cm): 89 cm Weight: 157 lbs 09/12/2017 Blood Pressure 1: 140/86 Code: 8480-6 Heart Rate 1: 62 bpm SpO2: 96% Temperature: 36.6 (C) / 97.8 (F) Weight: 153 lbs 07/25/2017 Blood Pressure 1: 140/72 Code: 8480-6 BMI: 31.3 Code: 50444-4 Heart Rate 1: 76 bpm Height: 4'11" SpO2: 97% Temperature: 37.2 (C) / 99.0 (F) Weight: 155 lbs 06/27/2017 Blood Pressure 1: 144/84 Code: 8480-6 BMI: 31.1 Code: 84975-9 Heart Rate 1: 63 bpm Height: 4'11" SpO2: 99% Temperature: 36.4 (C) / 97.6 (F) Weight: 154 lbs 05/08/2017 Blood Pressure 1: 142/86 Code: 8480-6 BMI: 30.9 Code: 84652-9 Height: 4'11" Temperature: 36.3 (C) / 97.4 (F) Weight: 153 lbs 03/14/2017 Blood Pressure 1: 146/82 Code: 8480-6 BMI: 30.9 Code: 76568-4 Heart Rate 1: 64 bpm Height: 4'11" SpO2: 94% Weight: 153 lbs 02/20/2017 Blood Pressure 1: 142/80 Code: 8480-6 BMI: 30.9 Code: 05987-6 Heart Rate 1: 75 bpm Height: 4'11" SpO2: 97% Weight: 153 lbs 02/06/2017 Blood Pressure 1: 138/90 Code: 8480-6 BMI: 31.5 Code: 44510-0 Heart Rate 1: 61 bpm Height: 4'11" SpO2: 98% Weight: 156 lbs 12/05/2016 Blood Pressure 1: 122/72 Code: 8480-6 Heart Rate 1: 59 bpm Height: 4'11" SpO2: 98% Weight: 11/28/2016 Blood Pressure 1: 154/86 Code: 8480-6 BMI: 31.3 Code: 88356-3 Heart Rate 1: 64 bpm Height: 4'11" SpO2: 94% Temperature: 36.2 (C) / 97.2 (F) Weight: 155 lbs 11/07/2016 Blood Pressure 1: 128/64 Code: 8480-6 BMI: 31.5 Code: 92013-9 Heart Rate 1: 59 bpm Height: 4'11" SpO2: 97% Weight: 156 lbs 08/15/2016 Blood Pressure 1: 110/62 Code: 8480-6 BMI: 31.5 Code: 38266-9 Heart Rate 1: 76 bpm Height: 4'11" SpO2: 97% Weight: 156 lbs 06/07/2016 Blood Pressure 1: 120/80 Code: 8480-6 BMI: 32.9 Code: 69412-1 Heart Rate 1: 63 bpm Height: 4'11" SpO2: 93% Temperature: 36.5 (C) / 97.7 (F) Weight: 163 lbs 03/15/2016 Blood Pressure 1: 90/42 Code: 8480-6 Heart Rate 1: 65 bpm SpO2: 94% 03/14/2016 Blood Pressure 1: 188/110 Code: 8480-6 Heart Rate 1: 68 bpm SpO2: 96% 02/22/2016 Blood Pressure 1: 158/80 Code: 8480-6 BMI: 32.7 Code: 69762-7 Heart Rate 1: 71 bpm Height: 4'11" SpO2: 95% Weight: 162 lbs 12/07/2015 Blood Pressure 1: 140/88 Code: 8480-6 BMI: 32.9 Code: 71432-3 Heart Rate 1: 99 bpm Height: 4'11" SpO2: 94% Temperature: 35.9 (C) / 96.6 (F) Weight: 163 lbs 11/24/2015 Blood Pressure 1: 144/78 Code: 8480-6 BMI: 33.7 Code: 78034-6 Heart Rate 1: 60 bpm Height: 4'11" SpO2: 98% Temperature: 36.6 (C) / 97.9 (F) Weight: 167 lbs 08/27/2015 Blood Pressure 1: 164/82 Code: 8480-6 BMI: 32.3 Code: 15212-1 Heart Rate 1: 60 bpm Height: 4'11" SpO2: 93% Weight: 160 lbs 08/10/2015 Blood Pressure 1: 130/60 Code: 8480-6 BMI: 32.5 Code: 24733-0 Heart Rate 1: 64 bpm Height: 4'11" SpO2: 97% Weight: 161 lbs 07/28/2015 Blood Pressure 1: 124/68 Code: 8480-6 BMI: 32.5 Code: 05481-4 Heart Rate 1: 69 bpm Height: 4'11" SpO2: 97% Weight: 161 lbs 06/11/2015 Blood Pressure 1: 148/80 Code: 8480-6 BMI: 32.9 Code: 40479-5 Heart Rate 1: 70 bpm Height: 4'11" SpO2: 94% Weight: 163 lbs 03/19/2015 Blood Pressure 1: 150/102 Code: 8480-6 Blood Pressure 2: 152/92 Code: 8480-6 BMI: 32.5 Code: 52716-9 Heart Rate 1: 71 bpm Height: 4'11" SpO2: 96% Weight: 161 lbs 01/07/2015 Blood Pressure 1: 126/84 Code: 8480-6 Heart Rate 1: 80 bpm Height: 4'11" 09/23/2014 Blood Pressure 1: 112/72 Code: 8480-6 BMI: 33.9 Code: 19275-4 Heart Rate 1: 72 bpm Height: 4'11" Weight: 168 lbs 08/05/2014 Blood Pressure 1: 140/86 Code: 8480-6 BMI: 33.3 Code: 35185-5 Height: 4'11" Weight: 165 lbs 06/23/2014 Blood Pressure 1: 132/70 Code: 8480-6 BMI: 32.9 Code: 58550-9 Heart Rate 1: 58 bpm Height: 4'11" Temperature: 36.0 (C) / 96.8 (F) Weight: 163 lbs 06/05/2014 Blood Pressure 1: 121/85 Code: 8480-6 BMI: 34.3 Code: 32583-2 Height: 4'11" Weight: 170 lbs 04/03/2014 Blood Pressure 1: 128/80 Code: 8480-6 Heart Rate 1: 88 bpm Weight: 167 lbs 03/07/2014 Blood Pressure 1: 122/82 Code: 8480-6 BMI: 33.9 Code: 71202-0 Heart Rate 1: 68 bpm Height: 4'11" Weight: 168 lbs 11/21/2013 Blood Pressure 1: 100/58 Code: 8480-6 BMI: 33.7 Code: 82527-5 Heart Rate 1: 64 bpm Height: 4'11" Weight: 167 lbs 09/24/2013 Blood Pressure 1: 148/88 Code: 8480-6 Heart Rate 1: 68 bpm Weight: 09/19/2013 Blood Pressure 1: 120/80 Code: 8480-6 BMI: 33.9 Code: 70648-7 Heart Rate 1: 80 bpm Height: 4'11" Temperature: 36.9 (C) / 98.5 (F) Weight: 168 lbs 08/05/2013 Blood Pressure 1: 128/80 Code: 8480-6 BMI: 34.3 Code: 86837-9 Heart Rate 1: 64 bpm Height: 4'11" Temperature: 36.2 (C) / 97.2 (F) Weight: 170 lbs 07/10/2013 Blood Pressure 1: 120/84 Code: 8480-6 BMI: 36.0 Code: 26141-0 Heart Rate 1: 90 bpm Height: 4'11" SpO2: 97% Temperature: 36.8 (C) / 98.2 (F) Weight: 178 lbs 06/03/2013 Blood Pressure 1: 136/94 Code: 8480-6 BMI: 34.7 Code: 85625-1 Heart Rate 1: 68 bpm Height: 4'11" Temperature: 36.7 (C) / 98.0 (F) Weight: 172 lbs 05/13/2013 Blood Pressure 1: 132/90 Code: 8480-6 Heart Rate 1: 68 bpm 05/07/2013 Blood Pressure 1: 168/100 Code: 8480-6 BMI: 34.3 Code: 01639-7 Heart Rate 1: 76 bpm Height: 4'11" Weight: 170 lbs 12/03/2012 Blood Pressure 1: 142/78 Code: 8480-6 BMI: 33.5 Code: 89974-6 Heart Rate 1: 76 bpm Height: 4'11" Weight: 166 lbs 09/24/2012 Blood Pressure 1: 116/70 Code: 8480-6 Heart Rate 1: 68 bpm Respiratory Rate: 16 bpm Temperature: 36.9 (C) / 98.4 (F) Weight: 162 lbs 09/10/2012 Blood Pressure 1: 116/80 Code: 8480-6 BMI: 33.7 Code: 16544-6 Heart Rate 1: 76 bpm Height: 4'11" [...] 1: 149/85 Code: 8480-6 BMI: 32.9 Code: 58096-9 Heart Rate 1: 79 bpm Height: 4'11" Weight: 164 lbs 05/03/2011 Blood Pressure 1: 122/79 Code: 8480-6 BMI: 30.8 Code: 83407-0 Heart Rate 1: 72 bpm Height: 5'1" Weight: 163 lbs 04/25/2011 Blood Pressure 1: 137/84 Code: 8480-6 BMI: 31.0 Code: 59198-6 Heart Rate 1: 63 bpm Height: 5'1" Respiratory Rate: 20 bpm Weight: 164 lbs Functional Status No Functional Status data History of Present Illness Symptom Name Status Result Effective Date Notes nasal discharge Location in both nares 07/10/2018 [...] increase her duragesic and referral to dr hernandez for epidural knee pain Location on the [...] surg in december. then took trip to [facility] to see mother and has had [...] Quality chronic 08/01/2011 states went shopping on [employer] over night without taking any of medications [...] data Encounters Encounter Performer Location Codes Date ([id number]) 85601 EST. PATIENT, LEVEL III Diagnosis: Acute recurrent maxillary sinusitis[ICD10: J01.01] Diagnosis: Frequency of micturition[ICD10: R35.0] Diagnosis: Low back pain[ICD10: M54.5] Shahida Goldman MD, [facility] CPT-4: 43073 07/10/2018 [id number]) 93200 EST. PATIENT, LEVEL III Diagnosis: Acute recurrent maxillary sinusitis[ICD10: J01.01] Shahida Goldman MD, [facility] CPT-4: 75944 05/28/2018 ([id number]) Miscellaneous no charge Diagnosis: Laceration without foreign body, left lower leg, subsequent encounter[ICD10: S81.812D] Diagnosis: Laceration without foreign body, right lower leg, subsequent encounter[ICD10: S81.811D] Isabelle Goldman MD, [facility] CPT-4: 05387 02/08/2018 35073 EST. PATIENT, LEVEL III Diagnosis: Cellulitis of left lower limb[ICD10: L03.116] Diagnosis: Cellulitis of right lower limb[ICD10: L03.115] Diagnosis: Laceration without foreign body, left lower leg, initial encounter[ICD10: S81.812A] Diagnosis: Laceration without foreign body, right lower leg, initial encounter[ICD10: S81.811A] Isabelle Goldman MD, [facility] CPT-4: 45272 02/07/2018 [id number] 87939 EST. PATIENT, LEVEL IV Diagnosis: Primary generalized (osteo)arthritis[ICD10: M15.0] Diagnosis: Acute recurrent maxillary sinusitis[ICD10: J01.01] Diagnosis: Low back pain[ICD10: M54.5] Diagnosis: Other allergic rhinitis[ICD10: J30.89] Diagnosis: Obstructive sleep apnea (adult) (pediatric)[ICD10: G47.33] Shahida Goldman MD, [facility] CPT-4: 02851 01/19/2018 92330 EST. PATIENT, LEVEL IV Diagnosis: Diarrhea, unspecified[ICD10: R19.7] Diagnosis: Generalized abdominal pain[ICD10: R10.84] Diagnosis: Other allergic rhinitis[ICD10: J30.89] Diagnosis: Other acute sinusitis[ICD10: J01.80] Isabelle Goldman MD, [facility] CPT- 4: 53764 09/12/2017 05824 EST. PATIENT, LEVEL III Diagnosis: Acute laryngopharyngitis[ICD10: J06.0] Diagnosis: Other allergic rhinitis[ICD10: J30.89] Diagnosis: Cough[ICD10: R05] Diagnosis: Wheezing[ICD10: R06.2] Isabelle Goldman MD, [facility] CPT-4: 77308 07/25/2017 ([id number]) 31693 EST. PATIENT, LEVEL IV Diagnosis: Acute recurrent maxillary sinusitis[ICD10: J01.01] Diagnosis: Cervicalgia[ICD10: M54.2] Diagnosis: Diarrhea, unspecified[ICD10: R19.7] Shahida Goldman MD, [facility] CPT-4: 51351 06/27/2017 ([id number]) 14454 EST. PATIENT, LEVEL III Diagnosis: Chronic maxillary sinusitis[ICD10: J32.0] Diagnosis: Gastro-esophageal reflux disease without esophagitis[ICD10: K21.9] Shahida Goldman MD, [facility] CPT-4: 68153 05/08/2017 ([id number]) 02092 EST. PATIENT, LEVEL III Diagnosis: Acute recurrent maxillary sinusitis[ICD10: J01.01] Shahida Goldman MD, [facility] CPT-4: 18960 03/14/2017 11390 EST. PATIENT, LEVEL IV Diagnosis: Epigastric pain[ICD10: R10.13] Diagnosis: Left upper quadrant pain[ICD10: R10.12] Diagnosis: Left lower quadrant pain[ICD10: R10.32] Isabelle Goldman MD, [facility] CPT-4: 59454 02/20/2017 ([id number]) 23117 EST. PATIENT, LEVEL IV Diagnosis: Generalized anxiety disorder[ICD10: F41.1] Diagnosis: Major depressive disorder, recurrent, moderate[ICD10: F33.1] Diagnosis: Left upper quadrant pain[ICD10: R10.12] Diagnosis: Epigastric pain[ICD10: R10.13] Diagnosis: Actinic keratosis[ICD10: L57.0] Melba Goldman MD, [facility] CPT-4: 67381 02/06/2017 ([id number]) 24370 EST. PATIENT, LEVEL III Diagnosis: Actinic keratosis[ICD10: L57.0] Diagnosis: Major depressive disorder, recurrent, moderate[ICD10: F33.1] Melba Goldman MD, [facility] CPT-4: 31583 12/05/2016 ([id number]) 74566 EST. PATIENT, LEVEL III Diagnosis: Acute recurrent maxillary sinusitis[ICD10: J01.01] Diagnosis: Dysuria[ICD10: R30.0] Shahida Goldman MD, [facility] CPT-4: 30564 11/28/2016 56891 EST. PATIENT, LEVEL IV Diagnosis: Other acute sinusitis[ICD10: J01.80] Diagnosis: Acute laryngopharyngitis[ICD10: J06.0] Diagnosis: Other allergic rhinitis[ICD10: J30.89] Isabelle Goldman MD, [facility] CPT- 4: 84935 08/15/2016 ([id number]) 50435 EST. PATIENT, LEVEL III Diagnosis: Acute recurrent maxillary sinusitis[ICD10: J01.01] Diagnosis: Low back pain[ICD10: M54.5] Shahida Goldman MD, [facility] CPT-4: 82532 06/07/2016 ([id number]) Miscellaneous no charge Diagnosis: Essential (primary) hypertension[ICD10: I10] Shahida Goldman MD, [facility] CPT-4: 03011 03/15/2016 96134 EST. PATIENT, LEVEL IV Diagnosis: Essential (primary) hypertension[ICD10: I10] Diagnosis: Headache[ICD10: R51] Diagnosis: Generalized anxiety disorder[ICD10: F41.1] Shahida Goldman MD, [facility] CPT-4: 38996 03/14/2016 86936 EST. PATIENT, LEVEL III Diagnosis: Laceration without foreign body, left lower leg, initial encounter[ICD10: S81.812A] Isabelle Goldman MD, [facility] CPT-4: 73690 02/22/2016 ([id number]) 53672 EST. PATIENT, LEVEL III Diagnosis: Acute recurrent maxillary sinusitis[ICD10: J01.01] Diagnosis: Cough[ICD10: R05] Diagnosis: Allergic rhinitis due to pollen[ICD10: J30.1] Shahida Goldman MD, [facility] CPT-4: 16118 12/07/2015 ([id number]) 76216 EST. PATIENT, LEVEL IV Diagnosis: Essential (primary) hypertension[ICD10: I10] Diagnosis: Acute recurrent maxillary sinusitis[ICD10: J01.01] Diagnosis: Generalized anxiety disorder[ICD10: F41.1] Diagnosis: Cervicalgia[ICD10: M54.2] Diagnosis: Generalized intra-abdominal and pelvic swelling, mass and lump[ICD10: R19.07] Melba Goldman MD, [facility] CPT-4: 51126 11/24/2015 40403 EST. PATIENT, LEVEL III Diagnosis: Other migraine, intractable, without status migrainosus[ICD10: G43.819] Isabelle Goldman MD, [facility] CPT-4: 51912 08/27/2015 57030 EST. PATIENT, LEVEL III Diagnosis: Acute recurrent maxillary sinusitis[ICD10: J01.01] Diagnosis: Candidal stomatitis[ICD10: B37.0] Diagnosis: Acute laryngopharyngitis[ICD10: J06.0] Isabelle Goldman MD, [facility] CPT- 4: 87193 08/10/2015 18586 EST. PATIENT, LEVEL III Diagnosis: Superficial foreign body of left hand, initial encounter[ICD10: S60.552A] Melba Goldman MD, [facility] CPT-4: 03915 07/28/2015 ([id number]) 44026 EST. PATIENT, LEVEL III Diagnosis: Essential (primary) hypertension[ICD10: I10] Diagnosis: Tinea cruris[ICD10: B35.6] Diagnosis: Abnormal levels of other serum enzymes[ICD10: R74.8] Shahida Goldman MD, [facility] CPT-4: 15033 06/11/2015 ([id number]) 11171 EST. PATIENT, LEVEL IV Diagnosis: ESSENTIAL HYPERTENSION[ICD9: 401.9] Diagnosis: Hypothyroid[ICD9: 244.9] Diagnosis: ALLERGIC RHINITIS[ICD9: 477.9] Diagnosis: Anxiety[ICD9: 300.00] Diagnosis: Sleep apnea[ICD9: 780.57] Shahida Goldman MD, [facility] CPT-4: 30737 03/19/2015 ([id number]) 11180 EST. PATIENT, LEVEL III Diagnosis: ACUTE SINUSITIS[ICD9: 461.9] Celi Goldman MD, [facility] CPT-4: 00459 01/07/2015 ([id number]) 81709 EST. PATIENT, LEVEL III Diagnosis: Conjunctivitis[ICD9: 372.30] Shahida Goldman MD, [facility] CPT-4: 44590 09/23/2014 24533 EST. PATIENT, LEVEL II Diagnosis: Noninfected skin tear of leg[ICD9: 891.0] Shahida Goldman MD, [facility] CPT-4: 30418 08/05/2014 ([id number]) 25546 EST. PATIENT, LEVEL III Diagnosis: Chronic maxillary sinusitis[ICD9: 473.0] Shahida Goldman MD, [facility] CPT-4: 98541 06/23/2014 94382 EST. PATIENT, LEVEL II Diagnosis: Headache[ICD9: 784.0] Shahida Goldman MD, [facility] CPT-4: 35961 06/05/2014 ([id number]) 02160 EST. PATIENT, LEVEL III Diagnosis: Abrasion of right leg[ICD9: 916.0] Diagnosis: Headache[ICD9: 784.0] Diagnosis: ALLERGIC RHINITIS[ICD9: 477.9] Shahida Goldman MD, [facility] CPT-4: 70444 04/03/2014 40411 EST. PATIENT, LEVEL II Diagnosis: Tinea corporis[ICD9: 110.5] Diagnosis: Exposure to scabies[ICD9: V01.89] Shahida Goldman MD, [facility] CPT- 4: 40430 03/07/2014 ([id number]) 39686 EST. PATIENT, LEVEL III Diagnosis: ESSENTIAL HYPERTENSION[SNOMED: 12335607] Diagnosis: OSTEOARTH NOS-UNSPEC[ICD9: 715.90] Diagnosis: Lumbago[ICD9: 724.2] Diagnosis: Cervicalgia[ICD9: 723.1] Shahida Goldman MD [facility] CPT-4: 21658 11/21/2013 ([id number]) 91779 EST. PATIENT, LEVEL III Diagnosis: DEPRESSIVE DISORDER NEC[ICD9: 311] Diagnosis: Paronychia[ICD9: 681.9] Melba Goldman MD [facility] CPT-4: 98188 09/24/2013 ([id number]) 99180 EST. PATIENT, LEVEL III Diagnosis: Paronychia[ICD9: 681.9] Diagnosis: Cellulitis[ICD9: 682.9] Melba Goldman MD [facility] CPT-4: 63099 09/19/2013 ([id number]) 26157 EST. PATIENT, LEVEL III Diagnosis: Conjunctivitis[ICD9: 372.30] Diagnosis: Thrush[ICD9: 112.0] Shahida Goldman MD, [facility] CPT-4: 50301 08/05/2013 ([id number]) 35992 EST. PATIENT, LEVEL III Diagnosis: ACUTE MAXILLARY SINUSITIS[ICD9: 461.0] Diagnosis: COUGH[ICD9: 786.2] Diagnosis: Insomnia[ICD9: 780.52] Diagnosis: ESOPHAGEAL REFLUX[ICD9: 530.81] Melba Goldman MD [facility] CPT-4: 37930 07/10/2013 ([id number]) Miscellaneous no charge Diagnosis: ESSENTIAL HYPERTENSION[SNOMED: 49663352] Melba Goldman MD [facility] CPT-4: 04574 05/13/2013 ([id number]) 00929 EST. PATIENT, LEVEL IV Diagnosis: ESSENTIAL HYPERTENSION[SNOMED: 50882646] Diagnosis: HYPOTHYROIDISM[ICD9: 244.9] Diagnosis: OSTEOARTH NOS-UNSPEC[ICD9: 715.90] Melba Goldman MD [facility] CPT- 4: 80925 05/07/2013 ([id number]) 40107 EST. PATIENT, LEVEL IV Diagnosis: Osteoarthritis[ICD9: 715.90] Diagnosis: Knee pain, bilateral[ICD9: 719.46] Diagnosis: Hip pain[ICD9: 719.45] Melba Goldman MD [facility] CPT-4: 12163 12/03/2012 ([id number]) 09963 EST. PATIENT, LEVEL III Diagnosis: Thrush[ICD9: 112.0] Melba Goldman MD [facility] CPT-4: 84781 09/24/2012 ([id number]) 95428 EST. PATIENT, LEVEL IV Diagnosis: ESSENTIAL HYPERTENSION[SNOMED: 42247743] Diagnosis: Thrush[ICD9: 112.0] Diagnosis: Sleep apnea[ICD9: 780.57] Melba Goldman MD [facility] CPT-4: 85691 09/10/2012 ([id number]) 83568 EST. PATIENT, LEVEL IV Diagnosis: Esophageal reflux[ICD9: 530.81] Diagnosis: Hypothyroid[ICD9: 244.9] Diagnosis: JOINT PAIN-MULT JOINTS[ICD9: 719.49] Diagnosis: ALLERGIC RHINITIS[ICD9: 477.9] Melba Goldman MD [facility] CPT-4: 78975 08/08/2012 ([id number]) 44343 EST. PATIENT, LEVEL IV Diagnosis: Urinary frequency[ICD9: 788.41] Diagnosis: EDEMA[ICD9: 782.3] Diagnosis: HYPOTHYROIDISM[ICD9: 244.9] Diagnosis: Fatigue[ICD9: 780.79] Melba Goldman MD, [facility] CPT-4: 22109 02/15/2012 ([id number]) 79777 EST. PATIENT, LEVEL IV Diagnosis: Abdominal pain[ICD9: 789.00] Diagnosis: Fatigue[ICD9: 780.79] Diagnosis: Nausea[ICD9: 787.02] Melba Goldman MD [facility] CPT-4: 88354 11/10/2011 90867 EST. PATIENT, LEVEL IV Diagnosis: ESSENTIAL HYPERTENSION[SNOMED: 60734103] Diagnosis: DIARRHEA[ICD9: 787.91] Diagnosis: DEPRESSIVE DISORDER NEC[ICD9: 311] Diagnosis: Irritable bowel disease[ICD9: 564.1] Melba Goldman MD, [facility] CPT- 4: 34973 08/01/2011 76635 EST. PATIENT, LEVEL III Diagnosis: ACUTE SINUSITIS[ICD9: 461.9] Diagnosis: Cough[ICD9: 786.2] Shahida Goldman MD, [facility] CPT-4: 09237 07/14/2011 17604 EST. PATIENT, LEVEL IV Diagnosis: VACCIN FOR INFLUENZA[ICD9: V04.81] Diagnosis: ESSENTIAL HYPERTENSION[SNOMED: 17004079] Diagnosis: GENERALIZED ANXIETY DISEASE[ICD9: 300.02] Diagnosis: SLEEP DISTURBANCES[ICD9: 780.50] Shahida Goldman MD, [facility] CPT- 4: 76184 05/23/2011 11651 EST. PATIENT, LEVEL III Diagnosis: ACUTE SINUSITIS[ICD9: 461.9] Diagnosis: ALLERGIC RHINITIS[ICD9: 477.9] Diagnosis: Cough[ICD9: 786.2] Shahida Goldman MD, [facility] CPT-4: 58180 05/03/2011 37016 EST. PATIENT, LEVEL IV Diagnosis: ESSENTIAL HYPERTENSION[SNOMED: 43405797] Diagnosis: DEPRESSIVE DISORDER NEC[ICD9: 311] Diagnosis: Fatigue[ICD9: 780.79] Shahida Goldman MD, [facility] CPT-4: 45511 04/25/2011 Plan of Care Planned Activity Notes Codes Status Date Appointment: Shahida Manzo WPtel: [address] [place], [place] [phone] (15 min) Moderate 07/10/2018 Patient Education: Patient Medication Summary Completed 07/10/2018 Patient Education: Back Pain Completed 07/10/2018 Appointment: Shahida Manzo WPtel: [address] [place], [place] [phone] (30 min) Complex 05/28/2018 Patient Education: Patient Medication Summary Completed 05/28/2018 Appointment: Nurse Visit 02/14/2018 Appointment: Nurse Visit 02/12/2018 Appointment: Nurse Visit 02/08/2018 Patient Education: Patient Medication Summary Completed 02/08/2018 Appointment: sIabelle Orozco WPtel: [address] [place], [place] [phone] (15 min) Moderate 02/07/2018 Patient Education: Patient Medication Summary Completed 02/07/2018 [facility]ment[facility] [phone] [phone] (15 min) Moderate 01/19/2018 Patient Education: Patient Medication Summary Completed 01/19/2018 Appointment: [facility] [phone] [facility] [facility] - Annual Wellness Visit 11/23/2017 Patient Education: Patient Medication Summary Completed 11/23/2017 Appointment: Isabelle Orozco [facility]Ptel[facility] (15 min) Moderate 09/12/2017 Patient Education: Patient Medication Summary Completed 09/12/2017 Appointment: Isabelle Orozco [facility]Ptel[facility] (30 min) Complex 07/25/2017 Patient Education: Patient Medication Summary Completed 07/25/2017 Patient Education: Obesity Completed 07/25/2017 Appointment: Shahida Manzo WPtel[phone] [place] (15 min) Moderate 06/27/2017 Patient Education: Patient Medication Summary Completed 06/27/2017 Appointment: Shahida Manzo WPtel[phone] [place] (15 min) Moderate 05/08/2017 Patient Education: Patient Medication Summary Completed 05/08/2017 Patient Education: Obesity Completed 05/08/2017 Appointment: Injection 04/20/2017 Patient Education: Patient Medication Summary Completed 04/20/2017 Appointment: Shahida Manzo WPtel: [phone] [place] (15 min) Moderate 03/14/2017 Patient Education: Patient Medication Summary Completed 03/14/2017 Appointment: Shahida Manzo WPtel[phone] [place] (15 min) Moderate 02/21/2017 Appointment: Isabelle Orozco WPtel: [facility] [place] (30 min) Complex 02/20/2017 Patient Education: Patient Medication Summary Completed 02/20/2017 Appointment: Melba Goldman WPtel: [phone] [facility] (15 min) Moderate 02/06/2017 Patient Education: Patient Medication Summary Completed 02/06/2017 Appointment: Melba Goldman WPtel: [facility] [facility] Procedure 12/05/2016 Patient Education: Patient Medication Summary Completed 12/05/2016 Appointment: [facility] [phone] [phone] (15 min) Moderate 11/28/2016 Patient Education: Patient Medication Summary Completed 11/28/2016 Care Plan: Urine Culture Pending 11/28/2016 Appointment: Isabelle Orozco WPtel: [facility] [facility]CR - Annual Wellness Visit 11/07/2016 Patient Education: Patient Medication Summary Completed 11/07/2016 Patient Education: Obesity Completed 11/07/2016 Appointment: Isabelle Orozco WPtel: [facility] (15 min) Moderate 08/15/2016 Patient Education: Patient Medication Summary Completed 08/15/2016 Patient Education: Obesity Completed 08/15/2016 Appointment: Shahida Manzo WPtel: [phone] [place] (10 min) Simple 06/07/2016 Patient Education: Patient Medication Summary Completed 06/07/2016 Patient Education: Obesity Completed 06/07/2016 Appointment: Lab Draw 05/05/2016 Patient Education: Patient Medication Summary Completed 05/05/2016 Appointment: Nurse Visit 03/15/2016 Patient Education: Patient Medication Summary Completed 03/15/2016 Appointment: [facility] [phone] [phone] (15 min) Moderate 03/14/2016 Patient Education: Patient Medication Summary Completed 03/14/2016 Care Plan: COMPLETE CBC AUTOMATED LOINC : 47379-3 Pending 03/14/2016 Appointment: Isabelle Orozco WPtel: [facility] (15 min) Moderate 02/22/2016 Patient Education: Patient Medication Summary Completed 02/22/2016 Patient Education: Patient Medication Summary Completed 12/07/2015 Patient Education: Obesity Completed 12/07/2015 Appointment: Melba Goldman WPtel: [address] [place], [place] [phone] (30 min) Complex 11/24/2015 Patient Education: Patient Medication Summary Completed 11/24/2015 Patient Education: Obesity Completed 11/24/2015 Patient Education: Hypertension Completed 11/24/2015 Patient Education: .Cervicalgia Neck Pain Completed 11/24/2015 Care Plan: Referral Order SNOMED-CT : [id number] Ordered 11/24/2015 Appointment: (15 min) Moderate 08/27/2015 Patient Education: Patient Medication Summary Completed 08/27/2015 Appointment: (15 min) Moderate 08/10/2015 Patient Education: Patient Medication Summary Completed 08/10/2015 Patient Education: Patient Medication Summary Completed 07/28/2015 Care Plan: Geraldine DAVID Pending 07/28/2015 Appointment: Shahida Manzo WPtel: [address] [place], [place] [phone] (15 min) Moderate 06/11/2015 Patient Education: Patient Medication Summary Completed 06/11/2015 Patient Education: Hypertension Completed 06/11/2015 Appointment: (15 min) Moderate 03/19/2015 Patient Education: Patient Medication Summary Completed 03/19/2015 Patient Education: Hypertension Completed 03/19/2015 Patient Education: Patient Medication Summary Completed 01/07/2015 Patient Education: [facility] - Saving AutoInj - 18+ - Dynamic Portal ID Completed 01/07/2015 Patient Education: .Cervicalgia Neck Pain Completed 01/07/2015 Appointment: Follow up 09/26/2014 Appointment: Sick 09/23/2014 Patient Education: Patient Medication Summary Completed 09/23/2014 Appointment: Sick 08/05/2014 Patient Education: Patient Medication Summary Completed 08/05/2014 Patient Education: Patient Medication Summary Completed 07/17/2014 Patient Education: Patient Medication Summary Completed 06/23/2014 Appointment: Follow up 06/05/2014 Patient Education: Patient Medication Summary Completed 06/05/2014 Patient Education: .Cervicalgia Neck Pain Completed 06/05/2014 Appointment: Follow up 04/03/2014 Patient Education: Patient Medication Summary Completed 04/03/2014 Appointment: Mel[phone] [facility] 03/07/2014 Patient Education: Patient Medication Summary Completed 03/07/2014 Appointment: Lab Draw 02/11/2014 Patient Education: Patient Medication Summary Completed 02/11/2014 Appointment: Shahida Manzo WPtel: [phone] Follow up 11/21/2013 Patient Education: Patient Medication Summary Completed 11/21/2013 Patient Education: Hypertension Completed 11/21/2013 Patient Education: .Cervicalgia Neck Pain Completed 11/21/2013 Appointment: Melba Goldman WPtel: [facility] Other 11/19/2013 Appointment: Melba Goldman WPtel: [facility] Follow up 11/06/2013 Appointment: Melba Goldman WPtel: [address] [place], [place] [id number] Lab Draw 10/15/2013 Patient Education: Patient Medication Summary Completed 10/15/2013 Appointment: Shahida Manzo WPtel: [phone] Other 09/24/2013 Patient Education: Patient Medication Summary Completed 09/24/2013 Appointment: Melba Goldman WPtel: [facility] Other 09/19/2013 Patient Education: Patient Medication Summary Completed 09/19/2013 [phone] S[facility] 08/05/2013 Patient Education: Patient Medication Summary Completed 08/05/2013 Patient Education: Patient Medication Summary Completed 07/10/2013 Appointment: Melba Goldman WPtel: [facility] Follow up 06/03/2013 Patient Education: Patient Medication Summary Completed 06/03/2013 Patient Education: Hypertension Completed 06/03/2013 Appointment: Melba Goldman WPtel: [facility] Nurse Visit 05/13/2013 Patient Education: Patient Medication Summary Completed 05/13/2013 Patient Education: Hypertension Completed 05/13/2013 Appointment: Melba Goldman WPtel: [address] [place], [place] [phone] Follow up 05/07/2013 Patient Education: Patient Medication Summary Completed 05/07/2013 Patient Education: Hypertension Completed 05/07/2013 Patient Education: Patient Medication Summary Completed 04/30/2013 Patient Education: Hypertension Completed 04/30/2013 Appointment: Melba Goldman WPtel: [address] [place], [place] [phone] Follow up 12/03/2012 Patient Education: Patient Medication Summary Completed 12/03/2012 Patient Education: Patient Medication Summary Completed 11/29/2012 Patient Education: Hypertension Completed 11/29/2012 Appointment: Shahida Manzo WPtel: [phone] Sick 09/24/2012 Patient Education: Patient Medication Summary Completed 09/24/2012 Appointment: Melba Goldman WPtel: [address] [place] [id number] Follow up 09/10/2012 Patient Education: Patient Medication Summary Completed 09/10/2012 Patient Education: Hypertension Completed 09/10/2012 Appointment: Shahida Manzo WPtel: [phone] Follow up 08/08/2012 Patient Education: Patient Medication Summary Completed 08/08/2012 Patient Education: Patient Medication Summary Completed 08/07/2012 Patient Education: Hypertension Completed 08/07/2012 Appointment: Melba Goldman WPtel: [address] [place], [place] [phone] Lab Draw 02/16/2012 Patient Education: Patient Medication Summary Completed 02/16/2012 Appointment: Melba Goldman WPtel: [address] [place], [place] [phone] Other 02/15/2012 Patient Education: Patient Medication Summary Completed 02/15/2012 Appointment: Melba Goldman WPtel: [address] [place], [place] [phone] Other 11/10/2011 Patient Education: Patient Medication Summary Completed 11/10/2011 Patient Education: Patient Medication Summary Completed 11/08/2011 Patient Education: High Blood Pressure: Essential Hypertension Completed 11/08/2011 Appointment: Melba Goldman WPtel: [address] [place], [place] [phone] Other 08/01/2011 Patient Education: Patient Medication Summary Completed 08/01/2011 Patient Education: High Blood Pressure: Essential Hypertension Completed 08/01/2011 Appointment: Shahida Manzo WPtel: [address] [place], [place] [phone] Other 07/14/2011 Patient Education: Patient Medication Summary Completed 07/14/2011 Appointment: Shahida Manzo WPtel: [address] [place], [place] [phone] Other 05/23/2011 Patient Education: Patient Medication Summary Completed 05/23/2011 Appointment: Shahida Manzo WPtel: [address] [place], [place] [phone] Other 05/03/2011 Patient Education: Patient Medication Summary Completed 05/03/2011 Appointment: Shahida Manzo WPtel: [address] [place], [place] [phone] Other 04/25/2011 Patient Education: Patient Medication Summary Completed 04/25/2011 Referral: Matthew Dai Referral Appointment Requested Referral: Matthew Dai Information faxed to Dr. Dai. Their office to book. Patient informed. Completed Instructions No Instructions
--- OUTSIDE RECORDS SUMMARY | 2019-03-08 17:58 | XMS REPORT | CCD ---
Author Author [facility] Address [address] [place] [address] Phone Care Team Providers Care Scientific Informatics Analyst Name Role Phone PP Unavailable CCM Unavailable Summary Purpose Interface Exchange Insurance Providers Payer name Policy type / Coverage type Covered democrat ID Effective Begin Date Effective End Date [employer] Solutions Medicare Part B [id number] Unknown Family history Son Diagnosis Age At Onset Crohn's disease Unknown Brother Diagnosis Age At Onset Cardiovascular disease Unknown Mother Diagnosis Age At Onset Hypertension Unknown Father Diagnosis Age At Onset Cardiovascular disease Unknown Social History Social History Element Codes Description Effective Dates Marital status Unknown 04/22/2011 Number of children Unknown 3 1 son -Crohns 04/22/[address]: 614144561 Nonsmoker 04/22/2011 Allergies, Adverse Reactions, Alerts Substance [...] hydrocodone 10 mg-acetaminophen 325 mg tablet RxNorm: 909411 Tablet(s) PO TAKE ONE TO TWO TABLETS BY MOUTH EVERY 6 HOURS NEEDED FOR PAIN 07/10/2018 07/24/2018 Active prednisone 20 mg tablet RxNorm: 893111 1 Tablet(s) PO BID 07/10/2018 07/14/2018 Active Phenergan with Codeine Syrup RxNorm: 5-10 Milliliter(s) PO Q6 PRN 06/28/2018 No Stop Date Active prednisone 20 mg tablet RxNorm: 688881 2 Tablet(s) PO daily 05/31/2018 06/04/2018 Inactive prednisone 20 mg tablet RxNorm: 609162 2 Tablet(s) PO daily 05/31/2018 05/30/2018 Inactive ceftriaxone 500 mg solution for injection RxNorm: 8821330 Inj 05/28/2018 05/28/2018 Inactive doxycycline hyclate 100 mg tablet RxNorm: 0356283 1 Tablet(s) PO BID 05/28/2018 06/06/2018 Inactive Kenalog 40 mg/mL suspension for injection RxNorm: 3685937 Milliliter(s) Inj 05/28/2018 05/28/2018 Inactive hydrocodone 10 mg-acetaminophen 325 mg tablet RxNorm: 552533 Tablet(s) PO TAKE ONE TO TWO TABLETS BY MOUTH EVERY 6 HOURS NEEDED FOR PAIN 05/09/2018 05/23/2018 Inactive alprazolam 0.25 mg tablet RxNorm: 417984 1 Tablet(s) PO daily as needed 04/25/2018 07/23/2018 Active Bystolic 10 mg tablet RxNorm: 564985 TAKE ONE TABLET BY MOUTH DAILY 04/16/2018 09/12/2018 Active hydrocodone 10 mg-acetaminophen 325 mg tablet RxNorm: 328245 Tablet(s) PO TAKE ONE TO TWO TABLETS BY MOUTH EVERY 6 HOURS NEEDED FOR PAIN 03/06/2018 03/20/2018 Inactive trazodone 50 mg tablet RxNorm: 377369 TAKE ONE AND ONE-HALF (1 1/2) TABLET BY MOUTH AT BEDTIME. MAY INCREASE TO 2 TABLETS AT BEDTIME NEEDED 02/23/2018 06/12/2018 Inactive mupirocin 2 % topical ointment RxNorm: 001195 1 TOP BID 02/09/2018 05/27/2018 Inactive Zofran 4 mg tablet RxNorm: 835035 1 Tablet(s) PO TID as needed 02/08/2018 No Stop Date Active Keflex 500 mg capsule RxNorm: 433330 1 Capsule(s) PO TID 02/07/2018 02/13/2018 Inactive alprazolam 0.25 mg tablet RxNorm: 990263 1 Tablet(s) PO daily as needed 01/24/2018 07/09/2018 Inactive piroxicam 20 mg capsule RxNorm: 220979 1 Capsule(s) PO daily 01/19/2018 07/17/2018 Active D/C ORDER FOR HCTZ hydrocodone 10 mg-acetaminophen 325 mg tablet RxNorm: 962863 Tablet(s) PO TAKE ONE TO TWO TABLETS BY MOUTH EVERY 6 HOURS NEEDED FOR PAIN 01/19/2018 02/02/2018 Inactive hydrochlorothiazide 25 mg tablet RxNorm: 253767 Tablet(s) TAKE ONE TABLET BY MOUTH DAILY 01/19/2018 01/19/2018 Inactive Kenalog 40 mg/mL suspension for injection RxNorm: 8051734 1 Milliliter(s) Inj 01/19/2018 01/19/2018 Inactive ceftriaxone 500 mg solution for injection RxNorm: 0066935 500 Milligram(s) Inj 01/19/2018 01/19/2018 Inactive Nexium 40 mg capsule,delayed release RxNorm: 111826 TAKE ONE CAPSULE BY MOUTH TWICE A DAY 01/18/2018 04/17/2018 Inactive Nexium 40 mg capsule,delayed release RxNorm: 439199 TAKE ONE CAPSULE BY MOUTH TWICE A DAY 01/15/2018 04/14/2018 Inactive ciprofloxacin 0.3 % eye drops RxNorm: 552457 2 Drop(s) ophthalmic (eye) Q2H while awake x 2 days, then Q4H x 5 days 11/23/2017 05/27/2018 Inactive Keflex 500 mg capsule RxNorm: 048768 1 Capsule(s) PO TID 11/23/2017 11/29/2017 Inactive hydrocodone 10 mg-acetaminophen 325 mg tablet RxNorm: 597725 Tablet(s) PO TAKE ONE TO TWO TABLETS BY MOUTH EVERY 6 HOURS NEEDED FOR PAIN 10/30/2017 11/13/2017 Inactive Augmentin 500 mg-125 mg tablet RxNorm: 579880 1 Tablet(s) PO TID 10/27/2017 11/05/2017 Inactive alprazolam 0.25 mg tablet RxNorm: 277633 1 Tablet(s) PO daily as needed 10/26/2017 04/24/2018 Inactive trazodone 50 mg tablet RxNorm: 414902 TAKE ONE AND ONE-HALF (1 1/2) TABLET BY MOUTH AT BEDTIME. MAY INCREASE TO 2 TABLETS AT BEDTIME NEEDED 09/25/2017 02/03/2018 Inactive Lexapro 20 mg tablet RxNorm: 997383 TAKE ONE AND ONE-HALF TABLET BY MOUTH DAILY 09/15/2017 09/09/2018 Active Flagyl 500 mg tablet RxNorm: 320568 1 Tablet(s) PO TID 09/12/2017 09/21/2017 Inactive promethazine 25 mg tablet RxNorm: 850947 1 Tablet(s) PO TID as needed nausea and vomitting THIS WILL MAKE YOU SLEEPY 09/12/2017 11/08/2017 Inactive Keflex 500 mg capsule RxNorm: 196163 1 Capsule(s) PO QID 08/25/2017 08/31/2017 Inactive [SAVINGS FOR UNINSURED PATIENTS -- BIN:[id number], PCN: [id number], Group: [facility], ID# [id number], Process claim through [employer], for questions: . THIS IS NOT INSURANCE.] alprazolam 0.25 mg tablet RxNorm: 272164 1 Tablet(s) PO daily as needed 07/31/2017 04/24/2018 Inactive prednisone 20 mg tablet RxNorm: 772771 2 Tablet(s) PO daily 07/25/2017 07/29/2017 Inactive Augmentin 500 mg-125 mg tablet RxNorm: 271191 1 Tablet(s) PO TID 07/25/2017 08/03/2017 Inactive trazodone 50 mg tablet RxNorm: 600447 TAKE ONE AND ONE-HALF (1 1/2) TABLET BY MOUTH AT BEDTIME. MAY INCREASE TO 2 TABLETS AT BEDTIME NEEDED 06/30/2017 09/03/2017 Inactive Bystolic 10 mg tablet RxNorm: 800836 TAKE ONE TABLET BY MOUTH DAILY 06/30/2017 2017 Inactive hydrochlorothiazide 25 mg tablet RxNorm: 814013 TAKE ONE TABLET BY MOUTH DAILY 06/30/2017 01/18/2018 Inactive Flagyl 500 mg tablet RxNorm: 080690 1 Tablet(s) PO TID 06/27/2017 07/03/2017 Inactive Phenergan with Codeine Syrup RxNorm: 5-10 Milliliter(s) PO Q6 PRN 06/27/2017 11/15/2017 Inactive Levaquin 500 mg tablet RxNorm: 398261 1 Tablet(s) PO daily 06/27/2017 07/03/2017 Inactive Kenalog 40 mg/mL suspension for injection RxNorm: 6043045 1 Milliliter(s) Inj 06/27/2017 06/27/2017 Inactive Nexium 40 mg capsule,delayed release RxNorm: 870188 1 Capsule(s) PO BID TAKE ONE CAPSULE BY MOUTH BID 05/22/2017 09/18/2017 Inactive Nexium 40 mg capsule,delayed release RxNorm: 998227 1 Capsule(s) PO BID TAKE ONE CAPSULE BY MOUTH BID 05/22/2017 05/21/2017 Inactive hydrocodone 10 mg-acetaminophen 325 mg tablet RxNorm: 472471 Tablet(s) PO TAKE ONE TO TWO TABLETS BY MOUTH EVERY 6 HOURS NEEDED FOR PAIN 05/17/2017 06/15/2017 Inactive Nexium 40 mg capsule,delayed release RxNorm: 919080 Capsule(s) TAKE ONE CAPSULE BY MOUTH BID 05/17/2017 05/21/2017 Inactive alprazolam 0.25 mg tablet RxNorm: 600253 1 Tablet(s) PO daily as needed 05/03/2017 07/01/2017 Inactive Levaquin 500 mg tablet RxNorm: 683372 1 Tablet(s) PO daily 04/20/2017 04/26/2017 Inactive clotrimazole 1 % topical cream RxNorm: 552820 1 Application TOP BID 04/20/2017 11/07/2017 Inactive Kenalog 40 mg/mL suspension for injection RxNorm: 1866188 Milliliter(s) Inj 04/20/2017 04/20/2017 Inactive nystatin 100,000 unit/gram topical powder RxNorm: 507680 1 Gram(s) APPLY TOPICALLY TWO TIMES A DAY 04/10/2017 07/08/2017 Inactive trazodone 50 mg tablet RxNorm: 847414 TAKE ONE AND ONE-HALF (1 1/2) TABLET BY MOUTH AT BEDTIME. MAY INCREASE TO 2 TABLETS AT BEDTIME NEEDED 03/28/2017 06/23/2017 Inactive Augmentin 875 mg-125 mg tablet RxNorm: 032736 1 Tablet(s) PO BID 03/14/2017 03/20/2017 Inactive Kenalog 40 mg/mL suspension for injection RxNorm: 1508820 1 Milliliter(s) Inj 03/14/2017 03/14/2017 Inactive Lexapro 20 mg tablet RxNorm: 600166 1.5 Tablet(s) PO daily 03/08/2017 03/07/2017 Inactive Lexapro 20 mg tablet RxNorm: 546861 1.5 Tablet(s) PO daily 03/08/2017 07/05/2017 Inactive alprazolam 0.25 mg tablet RxNorm: 519702 1 Tablet(s) PO daily as needed 02/23/2017 04/23/2017 Inactive (Response to an electronic controlled substance refill request - RxReferenceNumber: [id number]) Flagyl 500 mg tablet RxNorm: 228722 1 Tablet(s) PO TID 02/20/2017 03/01/2017 Inactive promethazine 25 mg tablet RxNorm: 002365 1 Tablet(s) PO TID as needed nausea 02/20/2017 03/01/2017 Inactive Cipro 500 mg tablet RxNorm: 178434 1 Tablet(s) PO BID 02/20/2017 03/01/2017 Inactive Flagyl 500 mg tablet RxNorm: 272484 1 Tablet(s) PO TID 02/09/2017 02/15/2017 Inactive Trintellix 10 mg tablet RxNorm: 4596240 1 Tablet(s) PO QAM 02/06/2017 03/07/2017 Inactive Efudex 5 % topical cream RxNorm: 011397 1 Application TOP BID use on skin spot on nose 02/06/2017 02/15/2017 Inactive Bystolic 10 mg tablet RxNorm: 830995 TAKE ONE TABLET BY MOUTH DAILY 02/03/2017 06/02/2017 Inactive Imitrex 50 mg tablet RxNorm: 070851 TAKE ONE TABLET BY MOUTH EVERY 8 HOURS NEEDED MAY REPEAT IN 1 HOUR OF INITIAL DOSE. DISCONTINUE FIORICET 12/22/2016 02/19/2017 Inactive Nexium 40 mg capsule,delayed release RxNorm: 799993 TAKE ONE CAPSULE BY MOUTH EVERY DAY 12/21/2016 05/16/2017 Inactive Lexapro 20 mg tablet RxNorm: 978699 Tablet(s) TAKE ONE TABLET BY MOUTH DAILY 12/05/2016 02/05/2017 Inactive Augmentin 875 mg-125 mg tablet RxNorm: 103991 1 Tablet(s) PO BID 11/28/2016 12/04/2016 Inactive ceftriaxone 500 mg solution for injection RxNorm: 1727357 1 Milliliter(s) Inj 11/28/2016 11/28/2016 Inactive hydrocodone 10 mg-acetaminophen 325 mg tablet RxNorm: 449769 Tablet(s) PO TAKE ONE TO TWO TABLETS BY MOUTH EVERY 6 HOURS NEEDED FOR PAIN 11/28/2016 05/16/2017 Inactive (Appended: Controlled substance eRx refill - RxReferenceNumber: [id number]) prednisone 20 mg tablet RxNorm: 283687 2 Tablet(s) PO daily 11/28/2016 12/02/2016 Inactive Synthroid 100 mcg tablet RxNorm: 995387 1 Tablet(s) PO daily 11/21/2016 05/19/2017 Inactive Brand name only! trazodone 50 mg tablet RxNorm: 166633 TAKE 1 AND 1/2 TABLETS EVERY NIGHT AT BEDTIME , MAY INCREASE TO 2 TABLETS AT BEDTIME NEEDED 11/21/2016 02/16/2017 Inactive trazodone 50 mg tablet RxNorm: 442064 Tablet(s) TAKE 1 AND 1/2 TABLETS EVERY NIGHT AT BEDTIME , MAY INCREASE TO 2 TABLETS AT BEDTIME NEEDED 11/21/2016 11/20/2016 Inactive Synthroid 100 mcg tablet RxNorm: 177874 1 Tablet(s) PO daily TAKE ONE TABLET BY MOUTH DAILY 11/08/2016 11/20/2016 Inactive ceftriaxone 500 mg solution for injection RxNorm: 1258758 Inj 11/07/2016 11/07/2016 Inactive Kenalog 40 mg/mL suspension for injection RxNorm: 0876398 Milliliter(s) Inj 11/07/2016 11/07/2016 Inactive Xanax 0.25 mg tablet RxNorm: 283457 1 Tablet(s) PO daily as needed 10/31/2016 05/02/2017 Inactive alprazolam 0.25 mg tablet RxNorm: 691439 1 Tablet(s) PO daily as needed 10/21/2016 12/18/2016 Inactive (Response to an electronic controlled substance refill request - RxReferenceNumber: [id number]) hydrochlorothiazide 25 mg tablet RxNorm: 523973 TAKE ONE TABLET BY MOUTH DAILY 10/11/2016 04/08/2017 Inactive Xanax 0.25 mg tablet RxNorm: 696251 1 Tablet(s) PO daily as needed 08/23/2016 10/19/2016 Inactive Flonase Allergy Relief 50 mcg/actuation nasal spray,suspension RxNorm: 8974561 1 [place] NASAL daily 08/15/2016 No Stop Date Active amoxicillin 500 mg capsule RxNorm: 661581 1 Capsule(s) PO TID 08/15/2016 08/24/2016 Inactive Bystolic 10 mg tablet RxNorm: 373385 TAKE ONE TABLET BY MOUTH DAILY 08/01/2016 12/28/2016 Inactive trazodone 50 mg tablet RxNorm: 793836 TAKE 1 AND 1/2 TABLETS EVERY NIGHT AT BEDTIME , MAY INCREASE TO 2 TABLETS AT BEDTIME NEEDED 07/25/2016 11/11/2016 Inactive alprazolam 0.25 mg tablet RxNorm: 705190 1 Tablet(s) PO daily as needed 07/25/2016 08/22/2016 Inactive (Response to an electronic controlled substance refill request - RxReferenceNumber: [id number]) Imitrex 50 mg tablet RxNorm: 100536 1 Tablet(s) PO Q8 as needed may repeat x1 dose in 1 hour of inital dose. 07/13/2016 No Stop Date Active Lexapro 20 mg tablet RxNorm: 258145 TAKE 1/2 TABLET BY MOUTH DAILY FOR 10 DAYS, THEN TAKE ONE TABLET BY MOUTH DAILY 06/27/2016 11/23/2016 Inactive Synthroid 100 mcg tablet RxNorm: 446370 TAKE ONE TABLET BY MOUTH DAILY 06/20/2016 11/07/2016 Inactive Augmentin 500 mg-125 mg tablet RxNorm: 315308 1 Tablet(s) PO TID 06/07/2016 06/13/2016 Inactive hydrocodone 10 mg-acetaminophen 325 mg tablet RxNorm: 001930 Tablet(s) PO TAKE ONE TO TWO TABLETS BY MOUTH EVERY 6 HOURS NEEDED FOR PAIN 06/07/2016 11/27/2016 Inactive (Appended: Controlled substance eRx refill - RxReferenceNumber: [id number]) hydrochlorothiazide 25 mg tablet RxNorm: 685440 TAKE ONE TABLET BY MOUTH DAILY 03/14/2016 09/09/2016 Inactive Edarbi 40 mg tablet RxNorm: 3505823 1 Tablet(s) PO daily 03/14/2016 06/06/2016 Inactive trazodone 50 mg tablet RxNorm: 960842 Tablet(s) TAKE 1 AND 1/2 TABLET AT BEDTIME. MAY INCREASE TO 2 TABLETS IF NECESSARY 02/25/2016 07/05/2016 Inactive Imitrex 50 mg tablet RxNorm: 163936 1 Tablet(s) PO Q8 as needed may repeat x1 dose in 1 hour of inital dose. 02/25/2016 07/12/2016 Inactive dc fioricet Xanax 0.25 mg tablet RxNorm: 688661 1 Tablet(s) PO daily as needed 02/24/2016 07/21/2016 Inactive mupirocin 2 % topical ointment RxNorm: 045184 1 TOP BID 02/22/2016 11/08/2017 Inactive Bactrim DS 800 mg-160 mg tablet RxNorm: 485925 1 Tablet(s) PO BID 02/22/2016 03/02/2016 Inactive Fioricet 50 mg-325 mg-40 mg tablet RxNorm: 879329 Tablet(s) TAKE ONE TABLET BY MOUTH EVERY 4 HOURS NEEDED FOR headache 02/12/2016 02/24/2016 Inactive (Response to an electronic controlled substance refill request - RxReferenceNumber: [id number]) Fioricet 50 mg-325 mg-40 mg tablet RxNorm: 471684 Tablet(s) TAKE ONE TABLET BY MOUTH EVERY 4 HOURS NEEDED FOR headache 02/12/2016 02/11/2016 Inactive (Response to an electronic controlled substance refill request - RxReferenceNumber: [id number]) Nexium 40 mg capsule,delayed release RxNorm: 760008 TAKE ONE CAPSULE BY MOUTH EVERY DAY 02/01/2016 10/27/2016 Inactive Bystolic 10 mg tablet RxNorm: 620262 Tablet(s) TAKE ONE TABLET BY MOUTH DAILY 01/06/2016 07/03/2016 Inactive Xanax 0.25 mg tablet RxNorm: 620293 1 Tablet(s) PO daily as needed 12/28/2015 02/23/2016 Inactive Levaquin 500 mg tablet RxNorm: 133430 1 Tablet(s) PO daily take a probiotic daily 12/14/2015 02/11/2016 Inactive Levaquin 500 mg tablet RxNorm: 917605 1 Tablet(s) PO daily take a probiotic daily 12/14/2015 12/13/2015 Inactive prednisone 20 mg tablet RxNorm: 698299 1 Tablet(s) PO BID 12/07/2015 12/13/2015 Inactive Augmentin 875 mg-125 mg tablet RxNorm: 445017 1 Tablet(s) PO BID 12/07/2015 12/13/2015 Inactive ceftriaxone 500 mg solution for injection RxNorm: 8049629 Inj 12/07/2015 12/07/2015 Inactive Phenergan with Codeine Syrup RxNorm: 5-10 Milliliter(s) PO Q6 PRN 12/07/2015 06/26/2017 Inactive alprazolam 0.25 mg tablet RxNorm: 897704 1 Tablet(s) PO daily as needed 11/27/2015 12/25/2015 Inactive (Response to an electronic controlled substance refill request - RxReferenceNumber: [id number]) trazodone 50 mg tablet RxNorm: 910117 TAKE 1 AND 1/2 TABLET AT BEDTIME FOR 2 WEEKS, MAY INCREASE TO 2 TABLETS IF NECESSARY AFTER THAT 11/26/2015 02/24/2016 Inactive ceftriaxone 500 mg solution for injection RxNorm: 6316758 Milliliter(s) Inj 11/24/2015 11/24/2015 Inactive prednisone 10 mg tablet RxNorm: 661637 3 Tablet(s) PO daily 11/24/2015 11/28/2015 Inactive cefdinir 300 mg capsule RxNorm: 456030 1 Capsule(s) PO BID 11/24/2015 11/30/2015 Inactive Kenalog 40 mg/mL suspension for injection RxNorm: 1032322 1 Milliliter(s) Inj 11/24/2015 11/24/2015 Inactive Lexapro 20 mg tablet RxNorm: 974393 TAKE 1/2 TABLET BY MOUTH DAILY FOR 10 DAYS, THEN TAKE ONE TABLET BY MOUTH DAILY 11/23/2015 05/20/2016 Inactive Lipitor 10 mg tablet RxNorm: 569013 Tablet(s) TAKE ONE TABLET BY MOUTH EVERY DAY 10/26/2015 11/06/2016 Inactive Norvasc 10 mg tablet RxNorm: 638980 Tablet(s) PO TAKE ONE TABLET BY MOUTH EVERY DAY 10/26/2015 01/18/2018 Inactive hydrochlorothiazide 25 mg tablet RxNorm: 501008 TAKE ONE TABLET BY MOUTH DAILY 10/20/2015 01/17/2016 Inactive promethazine 25 mg/mL injection solution RxNorm: 914034 Milliliter(s) Inj 08/27/2015 08/27/2015 Inactive ketorolac 60 mg/2 mL intramuscular solution RxNorm: 081175 Milliliter(s) IM 08/27/2015 08/27/2015 Inactive alprazolam 0.25 mg tablet RxNorm: 026708 1 Tablet(s) PO daily as needed 08/27/2015 10/25/2017 Inactive (Response to an electronic controlled substance refill request - RxReferenceNumber: [id number]) Lexapro 20 mg tablet RxNorm: 832489 TAKE 1/2 TABLET BY MOUTH DAILY FOR 10 DAYS, THEN TAKE ONE TABLET BY MOUTH DAILY 08/13/2015 11/10/2015 Inactive Flonase 50 mcg/actuation nasal spray,suspension RxNorm: 987684 PLACE 1 SPRAY IN EACH NOSTRIL DAILY 08/13/2015 02/08/2016 Inactive Augmentin 500 mg-125 mg tablet RxNorm: 410192 1 Tablet(s) PO TID 08/10/2015 08/16/2015 Inactive Kenalog 40 mg/mL suspension for injection RxNorm: 9888249 Milliliter(s) Inj 08/10/2015 08/10/2015 Inactive ceftriaxone 500 mg solution for injection RxNorm: 1166680 Inj 08/10/2015 08/10/2015 Inactive nystatin 100,000 unit/mL oral suspension RxNorm: 230518 4 Milliliter(s) PO QID 08/10/2015 08/16/2015 Inactive trazodone 50 mg tablet RxNorm: 918275 TAKE 1 AND 1/2 TABLET AT BEDTIME FOR 2 WEEKS, MAY INCREASE TO 2 TABLETS IF NECESSARY AFTER THAT 07/31/2015 11/25/2015 Inactive ceftriaxone 500 mg solution for injection RxNorm: 8631572 1 Milliliter(s) Inj 07/28/2015 07/28/2015 Inactive Bactrim DS 800 mg-160 mg tablet RxNorm: 857788 1 Tablet(s) PO BID 07/28/2015 08/06/2015 Inactive Bactroban 2 % topical ointment RxNorm: 652023 1 Application TOP BID 07/28/2015 08/06/2015 Inactive Diflucan 150 mg tablet RxNorm: 706044 1 Tablet(s) PO daily 06/11/2015 06/17/2015 Inactive clotrimazole 1 % topical cream RxNorm: 186569 1 Application TOP BID 06/11/2015 07/10/2015 Inactive Bystolic 10 mg tablet RxNorm: 373855 TAKE ONE TABLET BY MOUTH DAILY 06/08/2015 12/04/2015 Inactive alprazolam 0.25 mg tablet RxNorm: 477398 1 Tablet(s) PO daily as needed 06/01/2015 08/25/2015 Inactive (Response to an electronic controlled substance refill request - RxReferenceNumber: [id number]) Fioricet 50 mg-325 mg-40 mg tablet RxNorm: 997525 Tablet(s) TAKE ONE TABLET BY MOUTH EVERY 4 HOURS NEEDED FOR headache 05/28/2015 06/08/2015 Inactive (Response to an electronic controlled substance refill request - RxReferenceNumber: [id number]) trazodone 50 mg tablet RxNorm: 133383 TAKE 1 AND 1/2 TABLET AT BEDTIME FOR 2 WEEKS, MAY INCREASE TO 2 TABLETS IF NECESSARY AFTER THAT 05/25/2015 08/22/2015 Inactive trazodone 50 mg tablet RxNorm: 062352 TAKE 1 AND 1/2 TABLET AT BEDTIME FOR 2 WEEKS, MAY INCREASE TO 2 TABLETS IF NECESSARY AFTER THAT 05/25/2015 05/24/2015 Inactive Synthroid 100 mcg tablet RxNorm: 673193 TAKE ONE TABLET BY MOUTH DAILY 04/23/2015 01/17/2016 Inactive Lipitor 10 mg tablet RxNorm: 652786 TAKE ONE TABLET BY MOUTH EVERY DAY 04/23/2015 10/25/2015 Inactive Kenalog 40 mg/mL suspension for injection RxNorm: 4595425 Milliliter(s) Inj 03/19/2015 03/19/2015 Inactive Lexapro 20 mg tablet RxNorm: 347819 1 Tablet(s) PO daily 03/19/2015 07/16/2015 Inactive 1/2 tab daily x 10 days then 1 tab daily hydrocodone 10 mg-acetaminophen 325 mg tablet RxNorm: 992803 Tablet(s) PO TAKE ONE TO TWO TABLETS BY MOUTH EVERY 6 HOURS NEEDED FOR PAIN 03/19/2015 06/06/2016 Inactive (Appended: Controlled substance eRx refill - RxReferenceNumber: [id number]) Carafate 1 gram tablet RxNorm: 126148 1 Tablet(s) PO AC & HS 03/19/2015 06/16/2015 Inactive dissolve in water and take as a slurry hydrochlorothiazide 25 mg tablet RxNorm: 517682 1 Tablet(s) PO daily 03/12/2015 09/07/2015 Inactive Nexium 40 mg capsule,delayed release RxNorm: 599772 TAKE ONE CAPSULE BY MOUTH EVERY DAY 02/26/2015 12/22/2015 Inactive Cymbalta 60 mg capsule,delayed release RxNorm: 172850 TAKE ONE CAPSULE BY MOUTH TWICE A DAY 02/23/2015 03/18/2015 Inactive alprazolam 0.25 mg tablet RxNorm: 728046 1 Tablet(s) PO daily as needed 02/11/2015 05/10/2015 Inactive (Response to an electronic controlled substance refill request - RxReferenceNumber: [id number]) trazodone 50 mg tablet RxNorm: 993514 TAKE 1 AND 1/2 TABLET AT BEDTIME FOR 2 WEEKS, MAY INCREASE TO 2 TABLETS IF NECESSARY AFTER THAT 01/27/2015 05/24/2015 Inactive Augmentin 500 mg-125 mg tablet RxNorm: 329415 1 Tablet(s) PO TID 01/07/2015 01/13/2015 Inactive gentamicin 0.3 % eye drops RxNorm: 118088 3 Drop(s) OPH QID 01/07/2015 01/13/2015 Inactive [AttnRPh: Saving apply/adjudicate RxGRP:[id number] RxBIN:[id number] RxPCN: ID#:[id number]] scopolamine 1.5 mg transdermal 72 hour patch RxNorm: 248320 1 Patch TD q72 hours 01/07/2015 11/23/2015 Inactive Synthroid 100 mcg tablet RxNorm: 248328 TAKE ONE TABLET BY MOUTH ONCE A DAY 01/06/2015 04/22/2015 Inactive nystatin 100,000 unit/gram topical powder RxNorm: 610225 APPLY TOPICALLY TWO TIMES A DAY 12/18/2014 03/17/2015 Inactive alprazolam 0.25 mg tablet RxNorm: 926677 TAKE ONE TABLET BY MOUTH DAILY NEEDED 10/30/2014 11/28/2014 Inactive (Response to an electronic controlled substance refill request - RxReferenceNumber: [id number]) alprazolam 0.25 mg tablet RxNorm: 394789 Tablet(s) TAKE ONE TABLET BY MOUTH DAILY 10/30/2014 10/29/2014 Inactive (Response to an electronic controlled substance refill request - RxReferenceNumber: [id number]) Lipitor 10 mg tablet RxNorm: 695638 TAKE ONE TABLET BY MOUTH EVERY DAY 10/30/2014 02/26/2015 Inactive alprazolam 0.25 mg tablet RxNorm: 700403 TAKE ONE TABLET BY MOUTH DAILY 10/07/2014 10/29/2014 Inactive (Response to an electronic controlled substance refill request - RxReferenceNumber: [id number]) alprazolam 0.25 mg tablet RxNorm: 483785 TAKE ONE TABLET BY MOUTH DAILY 10/06/2014 10/07/2014 Inactive (Response to an electronic controlled substance refill request - RxReferenceNumber: [id number]) alprazolam 0.25 mg tablet RxNorm: 646617 Tablet(s) TAKE ONE TABLET BY MOUTH EVERY DAY NEEDED 09/30/2014 10/06/2014 Inactive (Response to an electronic controlled substance refill request - RxReferenceNumber: [id number]) Fioricet 50 mg-325 mg-40 mg tablet RxNorm: 238384 Tablet(s) TAKE ONE TABLET BY MOUTH EVERY 4 HOURS NEEDED FOR headache 09/29/2014 10/12/2014 Inactive (Response to an electronic controlled substance refill request - RxReferenceNumber: [id number]) Bystolic 10 mg tablet RxNorm: 793812 1 Tablet(s) PO daily TAKE ONE TABLET BY MOUTH EVERY DAY 09/29/2014 04/26/2015 Inactive Bystolic 5 mg tablet RxNorm: 941314 TAKE 1 AND 1/2 TABLETS ONCE DAILY 09/24/2014 09/23/2014 Inactive Bystolic 5 mg tablet RxNorm: 393515 Tablet(s) TAKE 1 AND 1/2 TABLETS ONCE DAILY 09/24/2014 09/18/2015 Inactive gentamicin 0.3 % eye drops RxNorm: 335139 3 Drop(s) OPH QID 09/23/2014 09/29/2014 Inactive trazodone 50 mg tablet RxNorm: 687189 TAKE 1 AND 1/2 TABLET AT BEDTIME FOR 2 WEEKS, MAY INCREASE TO 2 TABLETS IF NECESSARY AFTER THAT 09/22/2014 01/26/2015 Inactive Fioricet 50 mg-325 mg-40 mg tablet RxNorm: 426711 TAKE ONE TABLET BY MOUTH EVERY 4 HOURS NEEDED FOR PAIN 09/17/2014 09/28/2014 Inactive (Response to an electronic controlled substance refill request - RxReferenceNumber: [id number]) Duragesic 50 mcg/hr transdermal patch RxNorm: 846675 1 TD q72 hours 08/07/2014 01/06/2015 Inactive [SAVINGS FOR UNINSURED PATIENTS -- BIN:[id number], PCN: [id number], Group: [id number], ID# [id number], Process claim through [employer], for questions: . THIS IS NOT INSURANCE.] alprazolam 0.25 mg tablet RxNorm: 653391 TAKE ONE TABLET BY MOUTH EVERY DAY NEEDED 07/31/2014 08/29/2014 Inactive (Response to an electronic controlled substance refill request - RxReferenceNumber: [id number]) alprazolam 0.25 mg tablet RxNorm: 962858 1 Tablet(s) PO daily as needed TAKE ONE TABLET BY MOUTH EVERY DAY NEEDED 07/30/2014 08/01/2014 Inactive (Response to an electronic controlled substance refill request - RxReferenceNumber: [id number]) Diflucan 150 mg tablet RxNorm: 370441 1 Tablet(s) PO daily 06/25/2014 07/01/2014 Inactive [SAVINGS FOR UNINSURED PATIENTS -- BIN:[id number], PCN: ASPROD1, Group: [id number], ID# [id number], Process claim through [employer], for questions: . THIS IS NOT INSURANCE.] Kenalog 40 mg/mL suspension for injection RxNorm: 6561452 Milliliter(s) Inj 06/23/2014 06/23/2014 Inactive [SAVINGS FOR UNINSURED PATIENTS -- BIN:[id number], PCN: ASPROD1, Group: [id number], ID# [id number], Process claim through [employer], for questions: . THIS IS NOT INSURANCE.] ceftriaxone 500 mg solution for injection RxNorm: 486340 Inj 06/23/2014 06/23/2014 Inactive [SAVINGS FOR UNINSURED PATIENTS -- BIN:[id number], PCN: ASPROD1, Group: [id number], ID# [id number], Process claim through MedImpact, for questions: . THIS IS NOT INSURANCE.] Levaquin 500 mg tablet RxNorm: 140421 1 Tablet(s) PO daily 06/23/2014 07/13/2014 Inactive [SAVINGS FOR UNINSURED PATIENTS -- BIN:[id number], PCN: ASPROD1, Group: [id number], ID# [id number], Process claim through MedImpact, for questions: . THIS IS NOT INSURANCE.] Duragesic 50 mcg/hr transdermal patch RxNorm: 207362 1 TD q72 hours 06/05/2014 08/06/2014 Inactive [SAVINGS FOR UNINSURED PATIENTS -- BIN:[id number], PCN: ASPROD1, Group: [id number], ID# [id number], Process claim through MedImpact, for questions: . THIS IS NOT INSURANCE.] alprazolam 0.25 mg tablet RxNorm: 883459 1 Tablet(s) PO daily as needed TAKE ONE TABLET BY MOUTH EVERY DAY NEEDED 06/02/2014 07/29/2014 Inactive (Response to an electronic controlled substance refill request - RxReferenceNumber: [id number]) nystatin 100,000 unit/gram topical powder RxNorm: 048686 APPLY TO AFFECTED AREA(S) TWO TIMES A DAY 05/01/2014 06/14/2014 Inactive hydrochlorothiazide 25 mg tablet RxNorm: 091673 TAKE ONE TABLET BY MOUTH EVERY DAY MUST CALL MD FOR APPOINTMENT 04/24/2014 10/20/2014 Inactive alprazolam 0.25 mg tablet RxNorm: 891722 Tablet(s) TAKE ONE TABLET BY MOUTH EVERY DAY NEEDED 04/16/2014 06/02/2014 Inactive (Response to an electronic controlled substance refill request - RxReferenceNumber: [id number]) alprazolam 0.25 mg tablet RxNorm: 399469 TAKE ONE TABLET BY MOUTH EVERY DAY NEEDED 04/16/2014 05/15/2014 Inactive (Response to an electronic controlled substance refill request - RxReferenceNumber: [id number]) alprazolam 0.25 mg tablet RxNorm: 031230 TAKE ONE TABLET BY MOUTH EVERY DAY NEEDED 04/16/2014 05/15/2014 Inactive (Response to an electronic controlled substance refill request - RxReferenceNumber: [id number]) alprazolam 0.25 mg tablet RxNorm: 264928 TAKE ONE TABLET BY MOUTH EVERY DAY NEEDED 04/14/2014 04/16/2014 Inactive (Response to an electronic controlled substance refill request - RxReferenceNumber: [id number]) Lipitor 10 mg tablet RxNorm: 621534 TAKE ONE TABLET BY MOUTH EVERY DAY 04/14/2014 09/10/2014 Inactive alprazolam 0.25 mg tablet RxNorm: 639783 TAKE ONE TABLET BY MOUTH EVERY DAY NEEDED 04/14/2014 04/14/2014 Inactive (Response to an electronic controlled substance refill request - RxReferenceNumber: [id number]) alprazolam 0.25 mg tablet RxNorm: 179518 TAKE ONE TABLET BY MOUTH EVERY DAY NEEDED 04/14/2014 04/15/2014 Inactive (Response to an electronic controlled substance refill request - RxReferenceNumber: [id number]) alprazolam 0.25 mg tablet RxNorm: 833863 TAKE ONE TABLET BY MOUTH EVERY DAY NEEDED 04/14/2014 04/14/2014 Inactive (Response to an electronic controlled substance refill request - RxReferenceNumber: [id number]) nystatin 100,000 unit/gram topical powder RxNorm: 146966 1 Application TOP BID 04/03/2014 07/01/2014 Inactive [SAVINGS FOR UNINSURED PATIENTS -- BIN:[id number], PCN: ASPROD1, Group: [id number], ID# [id number], Process claim through Gluster, for questions: . THIS IS NOT INSURANCE.] Keflex 500 mg capsule RxNorm: 227607 1 Capsule(s) PO QID 04/03/2014 04/09/2014 Inactive [SAVINGS FOR UNINSURED PATIENTS -- BIN:128474, PCN: ASPROD1, Group: [id number], ID# [id number], Process claim through MedImpact, for questions: . THIS IS NOT INSURANCE.] Synthroid 100 mcg tablet RxNorm: 330943 1 Tablet(s) PO daily TAKE ONE TABLET BY MOUTH EVERY DAY 04/01/2014 01/05/2015 Inactive [SAVINGS FOR UNINSURED PATIENTS -- BIN:183662, PCN: ASPROD1, Group: [id number], ID# [id number], Process claim through MedImpact, for questions: . THIS IS NOT INSURANCE.] Duragesic 50 mcg/hr transdermal patch RxNorm: 299519 1 TD q72 hours 03/24/2014 06/04/2014 Inactive [SAVINGS FOR UNINSURED PATIENTS -- BIN:178882, PCN: ASPROD1, Group: [id number], ID# [id number], Process claim through MedImpact, for questions: . THIS IS NOT INSURANCE.] trazodone 50 mg tablet RxNorm: 511806 TAKE 1 AND 1/2 TABLET AT BEDTIME FOR 2 WEEKS, MAY INCREASE TO 2 TABLETS IF NECESSARY AFTER THAT 03/18/2014 09/13/2014 Inactive nystatin 100,000 unit/gram topical powder RxNorm: 969981 1 Application TOP BID 03/07/2014 03/16/2014 Inactive [SAVINGS FOR UNINSURED PATIENTS -- BIN:[id number], PCN: ASPROD1, Group: [id number], ID# [id number], Process claim through MedImpact, for questions: . THIS IS NOT INSURANCE.] permethrin 5 % topical cream RxNorm: 715629 1 Application TOP daily 03/07/2014 11/23/2015 Inactive apply head to toe-leave on overnight and wash off in the a.m. May repeat x 1 if needed Diflucan 150 mg tablet RxNorm: 437912 1 Tablet(s) PO daily 03/07/2014 03/09/2014 Inactive [SAVINGS FOR UNINSURED PATIENTS -- BIN:[id number], PCN: ASPROD1, Group: [id number], ID# [id number], Process claim through MedImpact, for questions: . THIS IS NOT INSURANCE.] hydrochlorothiazide 25 mg tablet RxNorm: 035769 TAKE ONE TABLET BY MOUTH EVERY DAY MUST CALL MD FOR APPOINTMENT 03/06/2014 04/23/2014 Inactive Zithromax Z-Sergio 250 mg tablet RxNorm: 303677 Tablet(s) PO as directed 03/04/2014 11/23/2015 Inactive [SAVINGS FOR UNINSURED PATIENTS -- BIN:885630, PCN: ASPROD1, Group: [id number], ID# [id number], Process claim through Gluster, for questions: . THIS IS NOT INSURANCE.] Flonase 50 mcg/actuation nasal spray,suspension RxNorm: 584441 1 [place] NASAL daily 03/04/2014 07/01/2014 Inactive [SAVINGS FOR UNINSURED PATIENTS -- BIN:556057, PCN: ASPROD1, Group: [id number], ID# [id number], Process claim through Audio Shackact, for questions: . THIS IS NOT INSURANCE.] alprazolam 0.25 mg tablet RxNorm: 280168 1 Tablet(s) PO PRN TAKE ONE TABLET BY MOUTH EVERY DAY NEEDED 02/25/2014 04/14/2014 Inactive (Appended: Controlled substance eRx refill - RxReferenceNumber: [id number]) alprazolam 0.25 mg tablet RxNorm: 861103 TAKE ONE TABLET BY MOUTH EVERY DAY NEEDED 02/21/2014 03/22/2014 Inactive (Response to an electronic controlled substance refill request - RxReferenceNumber: [id number]) alprazolam 0.25 mg tablet RxNorm: 589559 TAKE ONE TABLET BY MOUTH EVERY DAY NEEDED 02/21/2014 03/22/2014 Inactive (Response to an electronic controlled substance refill request - RxReferenceNumber: [id number]) alprazolam 0.25 mg tablet RxNorm: 181041 TAKE ONE TABLET BY MOUTH EVERY DAY NEEDED 02/18/2014 03/19/2014 Inactive (Response to an electronic controlled substance refill request - RxReferenceNumber: [id number]) Cymbalta 60 mg capsule,delayed release RxNorm: 424795 TAKE ONE CAPSULE BY MOUTH TWICE A DAY 02/18/2014 01/13/2015 Inactive Nexium 40 mg capsule,delayed release RxNorm: 187083 TAKE ONE CAPSULE BY MOUTH EVERY DAY 02/18/2014 01/13/2015 Inactive Bactrim DS 800 mg-160 mg tablet RxNorm: 991518 1 Tablet(s) PO BID 02/13/2014 02/19/2014 Inactive probiotic while one antibiotic Bactrim DS 800 mg-160 mg tablet RxNorm: 403180 1 Tablet(s) PO BID 02/13/2014 02/12/2014 Inactive hydrocodone 10 mg-acetaminophen 325 mg tablet RxNorm: 646707 Tablet(s) PO TAKE ONE TO TWO TABLETS BY MOUTH EVERY 6 HOURS NEEDED FOR PAIN 02/06/2014 03/18/2015 Inactive (Appended: Controlled substance eRx refill - RxReferenceNumber: [id number]) Abilify 2 mg tablet RxNorm: 720370 Tablet(s) PO TAKE ONE TABLET BY MOUTH EVERY NIGHT AT BEDTIME 02/03/2014 03/19/2015 Inactive Duragesic 50 mcg/hr transdermal patch RxNorm: 763302 1 TD q72 hours 01/14/2014 03/23/2014 Inactive alprazolam 0.25 mg tablet RxNorm: 740843 1 Tablet(s) PO QDAY PRN 01/14/2014 02/12/2014 Inactive alprazolam 0.25 mg tablet RxNorm: 150781 Tablet(s) PO TAKE ONE TABLET BY MOUTH EVERY DAY NEEDED 01/14/2014 02/24/2014 Inactive (Appended: Controlled substance eRx refill - RxReferenceNumber: [id number]) Lipitor 10 mg tablet RxNorm: 681751 Tablet(s) PO TAKE ONE TABLET BY MOUTH EVERY DAY 01/14/2014 04/13/2014 Inactive Synthroid 100 mcg tablet RxNorm: 348249 Tablet(s) PO TAKE ONE TABLET BY MOUTH EVERY DAY 2013 03/31/2014 Inactive Fioricet 50 mg-325 mg-40 mg tablet RxNorm: 015066 Tablet(s) PO TAKE ONE TABLET BY MOUTH EVERY 4 HOURS NEEDED FOR PAIN 11/27/2013 09/17/2014 Inactive Fioricet 50 mg-325 mg-40 mg tablet RxNorm: 015518 Tablet(s) PO TAKE ONE TABLET BY MOUTH EVERY 4 HOURS NEEDED FOR PAIN 11/25/2013 11/26/2013 Inactive Zithromax Z-Sergio 250 mg tablet RxNorm: 093373 Tablet(s) PO as directed 11/11/2013 01/13/2014 Inactive Bystolic 10 mg tablet RxNorm: 195461 Tablet(s) PO TAKE ONE TABLET BY MOUTH EVERY DAY 10/21/2013 09/28/2014 Inactive Abilify 2 mg tablet RxNorm: 827068 1 Tablet(s) PO QHS 09/25/2013 01/22/2014 Inactive Synthroid 100 mcg tablet RxNorm: 790226 Tablet(s) PO TAKE ONE TABLET BY MOUTH EVERY DAY 09/24/2013 12/25/2013 Inactive Abilify 2 mg tablet RxNorm: 091119 1 Tablet(s) PO QHS 09/24/2013 09/24/2013 Inactive Rocephin 500 mg solution for injection RxNorm: 054101 1ml Milliliter(s) Inj 09/24/2013 09/24/2013 Inactive Rocephin 500 mg solution for injection RxNorm: 479608 1 Milliliter(s) Inj 09/19/2013 09/19/2013 Inactive Bystolic 5 mg tablet RxNorm: 942395 1 1/2 Tablet(s) PO daily 09/17/2013 03/15/2014 Inactive 1 1/2 daily may have 90 day if cheaper Bystolic 5 mg tablet RxNorm: 369626 1 1/2 Tablet(s) PO daily 09/17/2013 09/16/2013 Inactive 1 1/2 daily Lipitor 10 mg tablet RxNorm: 979534 Tablet(s) PO TAKE ONE TABLET BY MOUTH EVERY DAY 09/12/2013 01/13/2014 Inactive hydrocodone 10 mg-acetaminophen 325 mg tablet RxNorm: 493813 Tablet(s) PO TAKE ONE TO TWO TABLETS BY MOUTH EVERY 6 HOURS NEEDED FOR PAIN 09/09/2013 10/29/2017 Inactive (Appended: Controlled substance eRx refill - RxReferenceNumber: [id number]) hydrocodone 10 mg-acetaminophen 325 mg tablet RxNorm: 159387 1 Tablet(s) PO Q6 PRN 09/09/2013 02/06/2014 Inactive hydrocodone 10 mg-acetaminophen 325 mg tablet RxNorm: 856130 Tablet(s) PO TAKE ONE TO TWO TABLETS BY MOUTH EVERY 6 HOURS NEEDED FOR PAIN 09/06/2013 10/29/2017 Inactive (Appended: Controlled substance eRx refill - RxReferenceNumber: [id number]) Norvasc 10 mg tablet RxNorm: 416953 Tablet(s) PO TAKE ONE TABLET BY MOUTH EVERY DAY 09/05/2013 10/25/2015 Inactive trazodone 50 mg tablet RxNorm: 597083 1 1/2 Tablet(s) PO QHS 09/03/2013 03/17/2014 Inactive 75q hs x 2 week may increase to 100mg if nec after that nystatin 100,000 unit/mL oral suspension RxNorm: 838374 6 Milliliter(s) PO QID 08/06/2013 08/15/2013 Inactive Flonase 50 mcg/actuation nasal spray,suspension RxNorm: 391924 2 [place] NASAL daily 08/06/2013 03/03/2014 Inactive nystatin 100,000 unit/mL oral suspension RxNorm: 503043 6 Unit(s) PO QID 08/05/2013 08/05/2013 Inactive Phenergan with Codeine Syrup RxNorm: 5 Milliliter(s) PO Q4 PRN 08/05/2013 12/02/2013 Inactive 8 ounces alprazolam 0.25 mg tablet RxNorm: 668535 1 Tablet(s) PO QDAY PRN 07/29/2013 01/14/2014 Inactive Diflucan 150 mg tablet RxNorm: 778785 1 Tablet(s) PO daily 07/24/2013 07/26/2013 Inactive hydrochlorothiazide 25 mg tablet RxNorm: 242504 Tablet(s) PO TAKE ONE TABLET BY MOUTH EVERY DAY MUST CALL MD FOR APPOINTMENT 07/19/2013 03/05/2014 Inactive Phenergan with Codeine Syrup RxNorm: 10 Milliliter(s) PO Q4 PRN 07/10/2013 08/04/2013 Inactive 8 ounces Rocephin 500 mg solution for injection RxNorm: 346809 1 Inj 07/10/2013 07/10/2013 Inactive cefdinir 300 mg capsule RxNorm: 860531 1 Capsule(s) PO BID 07/10/2013 07/16/2013 Inactive prednisone 10 mg tablet RxNorm: 727478 3 Tablet(s) PO daily 07/10/2013 07/14/2013 Inactive Carafate 100 mg/mL oral suspension RxNorm: 698660 10 Milliliter(s) PO Q6 PRN pt to take carafate 10mL every 6 hours as needed. 07/10/2013 08/05/2014 Inactive Kenalog 40 mg/mL suspension for injection RxNorm: 1888557 1 Milliliter(s) Inj 07/10/2013 07/10/2013 Inactive trazodone 50 mg tablet RxNorm: 769048 1 Tablet(s) PO QHS 07/10/2013 09/02/2013 Inactive sulfamethoxazole 800 mg-trimethoprim 160 mg tablet RxNorm: 435412 1 Tablet(s) PO BID 06/03/2013 06/12/2013 Inactive Synthroid 125 mcg tablet RxNorm: 996576 1 Tablet(s) PO daily 05/07/2013 09/23/2013 Inactive Bystolic 10 mg tablet RxNorm: 275754 1.5 Tablet(s) PO daily 05/07/2013 09/03/2013 Inactive Voltaren 1 % Topical Gel RxNorm: 509686 4 Gram(s) TOP QID apply 4 grams to knees, 2 grams to hands and ankles four times daily. 05/07/2013 09/03/2013 Inactive hydrocodone 10 mg-acetaminophen 325 mg tablet RxNorm: 827611 1 Tablet(s) PO Q6 PRN 04/23/2013 09/09/2013 Inactive Norvasc 10 mg tablet RxNorm: 376851 Tablet(s) PO TAKE ONE TABLET BY MOUTH EVERY DAY 04/23/2013 09/04/2013 Inactive alprazolam 0.25 mg tablet RxNorm: 952952 1 Tablet(s) PO QDAY PRN 03/25/2013 07/22/2013 Inactive Bystolic 10 mg tablet RxNorm: 021296 1 Tablet(s) PO daily TAKE ONE TABLET BY MOUTH EVERY DAY 03/25/2013 05/06/2013 Inactive zolpidem 10 mg tablet RxNorm: 390930 1 Tablet(s) PO HS PRN 03/25/2013 07/09/2013 Inactive gentamicin 0.3 % Eye Drops RxNorm: 4774591 3 Drop(s) OPH QID three gtts to each eye QID x 7 days 03/11/2013 03/10/2013 Inactive gentamicin 0.3 % eye drops RxNorm: 452215 3 Drop(s) OPH QID three gtts to each eye QID x 7 days 03/11/2013 03/17/2013 Inactive Nexium 40 mg capsule,delayed release RxNorm: 456241 Capsule(s) PO TAKE ONE CAPSULE BY MOUTH EVERY DAY 02/15/2013 02/17/2014 Inactive Cymbalta 60 mg capsule,delayed release RxNorm: 809519 Capsule(s) PO TAKE ONE CAPSULE BY MOUTH TWICE A DAY 02/15/2013 02/17/2014 Inactive hydrocodone 10 mg-acetaminophen 325 mg tablet RxNorm: 7009127 1 Tablet(s) PO Q6 PRN 01/22/2013 04/22/2013 Inactive Lipitor 10 mg tablet RxNorm: 753459 Tablet(s) PO TAKE ONE TABLET BY MOUTH EVERY DAY 01/07/2013 09/11/2013 Inactive Cymbalta 60 mg capsule,delayed release RxNorm: 370658 Capsule(s) PO TAKE ONE CAPSULE BY MOUTH TWICE A DAY 01/02/2013 02/14/2013 Inactive Synthroid 100 mcg tablet RxNorm: 322341 1 Tablet(s) PO 12/03/2012 05/06/2013 Inactive Enablex 7.5 mg tablet,extended release RxNorm: 015216 1 Tablet(s) PO daily 11/28/2012 11/27/2012 Inactive Enablex 7.5 mg tablet,extended release RxNorm: 701496 1 Tablet(s) PO daily 11/28/2012 11/28/2012 Inactive scopolamine 1.5 mg 72 hr Transderm Patch RxNorm: 549596 1 Milligram(s) TD q72 hours 11/26/2012 05/06/2013 Inactive hydrochlorothiazide 25 mg tablet RxNorm: 747229 Tablet(s) PO TAKE ONE TABLET BY MOUTH EVERY DAY MUST CALL FOR APPOINTMENT 11/24/2012 07/18/2013 Inactive Cymbalta 60 mg capsule,delayed release RxNorm: 402943 Capsule(s) PO TAKE ONE CAPSULE BY MOUTH TWICE A DAY 10/26/2012 01/01/2013 Inactive Bystolic 10 mg tablet RxNorm: 167171 Tablet(s) PO TAKE ONE TABLET BY MOUTH EVERY DAY 10/12/2012 03/25/2013 Inactive zolpidem 10 mg tablet RxNorm: 266238 1 Tablet(s) PO HS PRN 10/02/2012 01/29/2013 Inactive alprazolam 0.25 mg tablet RxNorm: 436241 1 Tablet(s) PO QDAY PRN 10/02/2012 01/29/2013 Inactive Kenalog 40 mg/mL Susp for Injection RxNorm: 9552107 1 Milliliter(s) Inj 09/24/2012 09/24/2012 Inactive Diflucan 150 mg tablet RxNorm: 689110 1 Tablet(s) PO daily 09/24/2012 09/30/2012 Inactive acyclovir 400 mg tablet RxNorm: 921669 1 Tablet(s) PO QID 09/24/2012 10/08/2012 Inactive Cipro 500 mg tablet RxNorm: 630223 1 Tablet(s) PO BID 09/24/2012 09/30/2012 Inactive Tamiflu 75 mg capsule RxNorm: 210006 1 Capsule(s) PO BID 09/17/2012 09/16/2012 Inactive Tamiflu 75 mg capsule RxNorm: 476599 1 Capsule(s) PO BID 09/17/2012 09/16/2012 Inactive Tamiflu 75 mg capsule RxNorm: 066461 1 Capsule(s) PO BID please disregard order for #14 09/17/2012 09/21/2012 Inactive fluconazole 150 mg tablet RxNorm: 396630 1 Tablet(s) PO daily 09/10/2012 09/13/2012 Inactive ketoconazole 2 % Topical Cream RxNorm: 110429 Application TOP BID apply to affected area BID until gone 08/31/2012 11/01/2017 Inactive Norvasc 10 mg tablet RxNorm: 429872 Tablet(s) PO TAKE ONE TABLET BY MOUTH EVERY DAY 08/29/2012 04/22/2013 Inactive Cipro 500 mg tablet RxNorm: 439305 1 Tablet(s) PO BID 08/17/2012 08/26/2012 Inactive Flagyl 500 mg tablet RxNorm: 723551 1 Tablet(s) PO TID 08/17/2012 08/23/2012 Inactive Cipro 500 mg tablet RxNorm: 571012 1 Tablet(s) PO BID 08/17/2012 08/16/2012 Inactive zolpidem 10 mg tablet RxNorm: 556156 1 Tablet(s) PO HS PRN 08/17/2012 09/15/2012 Inactive Flagyl 500 mg tablet RxNorm: 786613 1 Tablet(s) PO TID 08/17/2012 08/16/2012 Inactive alprazolam 0.25 mg tablet RxNorm: 121260 1 Tablet(s) PO QDAY PRN 08/17/2012 09/15/2012 Inactive [place] Allergy 180 mg tablet RxNorm: 953397 1 Tablet(s) PO daily 08/08/2012 02/03/2013 Inactive hydrochlorothiazide 25 mg tablet RxNorm: 710161 1/2 Tablet(s) PO daily 08/08/2012 11/05/2012 Inactive needs appt Carafate 1 gram tablet RxNorm: 454855 1 Tablet(s) PO QID mix with 10 cc water and dissolve into slurry 08/08/2012 08/21/2012 Inactive hydrocodone 10 mg-acetaminophen 325 mg tablet RxNorm: 5006464 1 Tablet(s) PO Q6 PRN 08/08/2012 01/21/2013 Inactive Synthroid 100 mcg tablet RxNorm: 041869 1 Tablet(s) PO 08/08/2012 12/02/2012 Inactive Cymbalta 60 mg capsule,delayed release RxNorm: 207327 Capsule(s) PO 07/23/2012 10/25/2012 Inactive TAKE ONE CAPSULE BY MOUTH TWICE A DAY Nexium 40 mg capsule,delayed release RxNorm: 121889 Capsule(s) PO 06/20/2012 02/14/2013 Inactive TAKE ONE CAPSULE BY MOUTH EVERY DAY Lipitor 10 mg tablet RxNorm: 173933 Tablet(s) PO 06/20/2012 01/06/2013 Inactive TAKE ONE TABLET BY MOUTH EVERY DAY hydrochlorothiazide 25 mg tablet RxNorm: 420138 1 Tablet(s) PO daily 06/19/2012 08/07/2012 Inactive needs appt alprazolam 0.25 mg tablet RxNorm: 133860 1 Tablet(s) PO QDAY PRN 06/05/2012 07/04/2012 Inactive zolpidem 10 mg tablet RxNorm: 464462 1 Tablet(s) PO HS PRN 06/05/2012 07/04/2012 Inactive zolpidem 10 mg tablet RxNorm: 948199 1 Tablet(s) PO HS PRN 04/16/2012 05/15/2012 Inactive alprazolam 0.25 mg tablet RxNorm: 594853 1 Tablet(s) PO QDAY PRN 04/16/2012 05/15/2012 Inactive Cymbalta 60 mg capsule,delayed release RxNorm: 882865 1 Capsule(s) PO BID 03/22/2012 07/19/2012 Inactive Fioricet 50 mg-325 mg-40 mg tablet RxNorm: 648127 1 Tablet(s) PO Q4 PRN 03/22/2012 11/24/2013 Inactive Bystolic 10 mg tablet RxNorm: 524122 Tablet(s) PO 03/22/2012 10/11/2012 Inactive TAKE ONE TABLET BY MOUTH EVERY DAY potassium chloride ER 10 mEq Tab RxNorm: 884528 1 Tablet(s) PO daily 02/24/2012 03/01/2012 Inactive Lasix 20 mg Tab RxNorm: 729105 1 Tablet(s) PO daily 02/22/2012 02/21/2012 Inactive KCL 10 meq RxNorm: 1 PO daily 02/22/2012 02/21/2012 Inactive potassium chloride ER 10 mEq Tab RxNorm: 462655 1 Tablet(s) PO daily 02/22/2012 02/21/2012 Inactive Lasix 20 mg Tab RxNorm: 747101 1 Tablet(s) PO daily 02/22/2012 02/28/2012 Inactive KCL 10 meq RxNorm: 1 PO daily 02/22/2012 02/22/2012 Inactive potassium chloride ER 10 mEq Tab RxNorm: 743841 1 Tablet(s) PO daily 02/22/2012 02/23/2012 Inactive Rocephin 500 mg Solution for Injection RxNorm: 303016 Inj 02/15/2012 02/15/2012 Inactive Nexium 40 mg capsule,delayed release RxNorm: 222108 1 Capsule(s) PO daily 02/15/2012 No Stop Date Active Bystolic 10 mg Tab RxNorm: 025388 1 Tablet(s) PO daily 02/15/2012 08/12/2012 Inactive alprazolam 0.25 mg tablet RxNorm: 591962 1 Tablet(s) PO QDAY PRN 01/31/2012 02/29/2012 Inactive zolpidem 10 mg tablet RxNorm: 873740 1 Tablet(s) PO HS PRN 01/31/2012 02/29/2012 Inactive alprazolam 0.25 mg Tab RxNorm: 316002 1 Tablet(s) PO QDAY PRN 12/16/2011 01/14/2012 Inactive zolpidem 10 mg Tab RxNorm: 931864 1 Tablet(s) PO HS PRN 12/16/2011 01/14/2012 Inactive Norvasc 10 mg tablet RxNorm: 949160 1 Tablet(s) PO daily 12/02/2011 02/21/2012 Inactive Lipitor 10 mg tablet RxNorm: 925694 1 Tablet(s) PO daily 11/16/2011 05/13/2012 Inactive zolpidem 10 mg Tab RxNorm: 543192 1 Tablet(s) PO HS PRN 10/26/2011 12/15/2011 Inactive alprazolam 0.25 mg Tab RxNorm: 747576 1 Tablet(s) PO QDAY PRN 10/26/2011 12/15/2011 Inactive hydrochlorothiazide 25 mg tablet RxNorm: 013862 1 Tablet(s) PO daily 09/05/2011 03/02/2012 Inactive Synthroid 75 mcg tablet RxNorm: 435020 1 Tablet(s) PO daily 08/01/2011 02/26/2012 Inactive Abilify 2 mg Tab RxNorm: 151770 1 Tablet(s) PO QHS 08/01/2011 09/10/2012 Inactive dicyclomine 10 mg Cap RxNorm: 315784 1 Capsule(s) PO TID 08/01/2011 10/29/2011 Inactive alprazolam 0.25 mg Tab RxNorm: 563644 1 Tablet(s) PO QDAY PRN 07/26/2011 10/25/2011 Inactive Fioricet 50 mg-325 mg-40 mg tablet RxNorm: 908926 1 Tablet(s) PO Q4 PRN 07/14/2011 03/21/2012 Inactive Rocephin 500 mg Solution for Injection RxNorm: 996619 1 Milliliter(s) Inj 07/14/2011 08/01/2011 Inactive Nexium 40 mg Capsule, delayed release RxNorm: 601967 1 Capsule(s) PO daily 05/23/2011 10/06/2011 Inactive Bystolic 10 mg tablet RxNorm: 363236 1 Tablet(s) PO daily 05/23/2011 11/18/2011 Inactive Bystolic 10 mg Tab RxNorm: 252625 1 Tablet(s) PO daily 05/23/2011 05/22/2011 Inactive alprazolam 0.25 mg Tab RxNorm: 327136 1 Tablet(s) PO QDAY PRN 05/23/2011 07/25/2011 Inactive Influenza Virus Vaccine 0.5 mL RxNorm: IM 05/23/2011 05/23/2011 Inactive zolpidem 10 mg Tab RxNorm: 822903 1 Tablet(s) PO HS PRN 05/23/2011 10/25/2011 Inactive Rocephin 500 mg Solution for Injection RxNorm: 635196 1 Milliliter(s) Inj 05/03/2011 07/14/2011 Inactive Kenalog 40 mg/mL Susp for Injection RxNorm: 3240242 1 Milliliter(s) Inj 05/03/2011 07/14/2011 Inactive Bactrim DS 800 mg-160 mg Tab RxNorm: 843304 1 Tablet(s) PO BID 05/03/2011 08/01/2011 Inactive Bystolic 10 mg tablet RxNorm: 232158 1 Tablet(s) PO daily No Start Date Active Flonase 50 mcg/actuation nasal spray,suspension RxNorm: 7301253 2 [place] NASAL daily No Start Date 08/05/2013 Inactive Levaquin 500 mg tablet RxNorm: 695184 Tablet(s) PO No Start Date 04/19/2017 Inactive Duragesic 50 mcg/hr transdermal patch RxNorm: 750607 1 TD q72 hours No Start Date 01/13/2014 Inactive Vesicare 5 mg tablet RxNorm: 428012 1 Tablet(s) PO daily No Start Date 01/06/2015 Inactive Celebrex 200 mg capsule RxNorm: 293350 1 Capsule(s) PO daily No Start Date 04/02/2014 Inactive zolpidem 10 mg Tab RxNorm: 598212 1 Tablet(s) PO HS PRN No Start Date 05/22/2011 Inactive Zyrtec 10 mg Tab RxNorm: 0396638 1 Tablet(s) PO daily No Start Date 08/08/2012 Inactive Flonase 50 mcg/actuation nasal spray,suspension RxNorm: 9019966 1 [place] NASAL daily No Start Date 11/07/2017 Inactive 1 spray to each nostril daily Nexium 40 mg Cap RxNorm: 596552 1 Capsule(s) PO daily No Start Date 05/22/2011 Inactive ketoconazole 2 % Topical Cream RxNorm: 255336 Application TOP BID apply to affected area BID until gone No Start Date 08/30/2012 Inactive aspirin 81 mg tablet RxNorm: 916990 1 Tablet(s) PO daily No Start Date 11/13/2017 Inactive Cymbalta 60 mg capsule,delayed release RxNorm: 770810 1 Capsule(s) PO BID No Start Date 03/21/2012 Inactive alprazolam 0.25 mg Tab RxNorm: 569135 1 Tablet(s) PO QDAY PRN No Start Date 05/22/2011 Inactive baclofen 10 mg tablet RxNorm: 022460 1 Tablet(s) PO TID as needed muscle spasms No Start Date 11/14/2017 Inactive Toprol XL 100 mg 24 hr Tab RxNorm: 722631 1 Tablet(s) PO BID No Start Date 04/25/2011 Inactive Xanax 0.25 mg tablet RxNorm: 261002 1 Tablet(s) PO daily as needed No Start Date 12/27/2015 Inactive Bystolic 10 mg Tab RxNorm: 174248 1 Tablet(s) PO daily No Start Date 05/22/2011 Inactive Fioricet 50 mg-325 mg-40 mg Tab RxNorm: 658670 1 Tablet(s) PO Q4 PRN No Start Date 07/13/2011 Inactive albuterol sulfate HFA 90 mcg/Actuation Aerosol Inhaler RxNorm: 3574597 1 INH Q4 PRN No Start Date 01/06/2015 Inactive Imitrex 50 mg tablet RxNorm: 912449 1 Tablet(s) PO Q8 as needed may repeat x1 dose in 1 hour of inital dose. No Start Date 02/24/2016 Inactive dc fioricet Tessalon 200 mg Cap RxNorm: 460347 1 Capsule(s) PO Q4 PRN No Start Date 02/14/2012 Inactive Zithromax Z-Sergio 250 mg tablet RxNorm: 907681 Tablet(s) PO No Start Date 11/10/2013 Inactive hydrochlorothiazide 25 mg Tab RxNorm: 836415 1 Tablet(s) PO daily No Start Date 09/04/2011 Inactive Fish Oil 1,000 mg Cap RxNorm: 1 Capsule(s) PO TID No Start Date 11/08/2017 Inactive Deplin 15 mg Tab RxNorm: 1 Tablet(s) PO daily No Start Date 08/01/2011 Inactive Brilinta 90 mg tablet RxNorm: 5357562 1 Tablet(s) PO BID No Start Date 11/23/2015 Inactive Synthroid 75 mcg Tab RxNorm: 592843 1 Tablet(s) PO daily No Start Date 07/31/2011 Inactive ciprofloxacin 0.3 % eye drops RxNorm: 508110 2 Drop(s) ophthalmic (eye) Q2H while awake x 2 days, then Q4H x 5 days No Start Date 11/22/2017 Inactive scopolamine 1.5 mg 72 hr Transderm Patch RxNorm: 001366 1 Milligram(s) TD q72 hours No Start Date 11/25/2012 Inactive hydrocodone-acetaminophen 10 mg-325 mg tablet RxNorm: 7344465 1 Tablet(s) PO Q6 PRN No Start Date 08/07/2012 Inactive Phenergan with Codeine Syrup RxNorm: 5-10 Milliliter(s) PO Q6 PRN No Start Date 02/14/2012 Inactive Norvasc 10 mg Tab RxNorm: 038460 1 Tablet(s) PO daily No Start Date 12/01/2011 Inactive Zithromax Z-Sergio 250 mg Tab RxNorm: 518926 Tablet(s) PO No Start Date 08/01/2011 Inactive Medication Administered Medication Codes Instructions Start Date Status ceftriaxone 500 mg solution for injection RxNorm: 0077197 05/28/2018 No longer Active Kenalog 40 mg/mL suspension for injection RxNorm: 9567827 Milliliter 05/28/2018 No longer Active Kenalog 40 mg/mL suspension for injection RxNorm: 2537323 1Milliliter 01/19/2018 No longer Active ceftriaxone 500 mg solution for injection RxNorm: 1509798 500Milligram 01/19/2018 No longer Active Kenalog 40 mg/mL suspension for injection RxNorm: 8463913 1Milliliter 06/27/2017 No longer Active Kenalog 40 mg/mL suspension for injection RxNorm: 0101438 Milliliter 04/20/2017 No longer Active Kenalog 40 mg/mL suspension for injection RxNorm: 9567857 1Milliliter 03/14/2017 No longer Active ceftriaxone 500 mg solution for injection RxNorm: 7584970 1Milliliter 11/28/2016 No longer Active Kenalog 40 mg/mL suspension for injection RxNorm: 9112818 Milliliter 11/07/2016 No longer Active ceftriaxone 500 mg solution for injection RxNorm: 3238372 11/07/2016 No longer Active ceftriaxone 500 mg solution for injection RxNorm: 7316711 12/07/2015 No longer Active ceftriaxone 500 mg solution for injection RxNorm: 8376626 Milliliter 11/24/2015 No longer Active Kenalog 40 mg/mL suspension for injection RxNorm: 5557749 1Milliliter 11/24/2015 No longer Active promethazine 25 mg/mL injection solution RxNorm: 372976 Milliliter 08/27/2015 No longer Active ketorolac 60 mg/2 mL intramuscular solution RxNorm: 979312 Milliliter 08/27/2015 No longer Active ceftriaxone 500 mg solution for injection RxNorm: 1760238 08/10/2015 No longer Active Kenalog 40 mg/mL suspension for injection RxNorm: 0007045 Milliliter 08/10/2015 No longer Active ceftriaxone 500 mg solution for injection RxNorm: 0193874 1Milliliter 07/28/2015 No longer Active Kenalog 40 mg/mL suspension for injection RxNorm: 0598594 Milliliter 03/19/2015 No longer Active Kenalog 40 mg/mL suspension for injection RxNorm: 1646508 Milliliter 06/23/2014 No longer Active ceftriaxone 500 mg solution for injection RxNorm: 272369 06/23/2014 No longer Active Rocephin 500 mg solution for injection RxNorm: 493999 1mlMilliliter 09/24/2013 No longer Active Rocephin 500 mg solution for injection RxNorm: 435063 1Milliliter 09/19/2013 No longer Active Kenalog 40 mg/mL suspension for injection RxNorm: 8975040 1Milliliter 07/10/2013 No longer Active Rocephin 500 mg solution for injection RxNorm: 258392 1 07/10/2013 No longer Active Kenalog 40 mg/mL Susp for Injection RxNorm: 6309536 1Milliliter 09/24/2012 No longer Active Rocephin 500 mg Solution for Injection RxNorm: 815144 02/15/2012 No longer Active Influenza Virus Vaccine [...] Item Item Code Result Date Comp Metabolic Hme410 NA 141 mEq/L 09/12/2017 Comp Metabolic Swd446 K 4.1 mEq/L 09/12/2017 Comp Metabolic Wqx313 CL 105 mEq/L 09/12/2017 Comp Metabolic Nyf174 CO2 30.0 mEq/L 09/12/2017 Comp Metabolic Krh724 ANION GAP 10 09/12/2017 Comp Metabolic Yai234 GLUCOSE 97 mg/dL 09/12/2017 Comp Metabolic Owu103 Creat 0.7 mg/dL 09/12/2017 Comp Metabolic Ehr998 eGFR 91 ml/min/1.73m2 09/12/2017 Comp Metabolic Flt739 BUN 18 mg/dL 09/12/2017 Comp Metabolic Nve545 B/C Ratio 26.5 Ratio 09/12/2017 Comp Metabolic Cdx187 CALCIUM 9.7 mg/dL 09/12/2017 Comp Metabolic Udn999 ALK PHOS 60 U/L 09/12/2017 Comp Metabolic Yth612 AST(SGOT) 22 U/L 09/12/2017 Comp Metabolic Lho934 ALT(SGPT) 23 U/L 09/12/2017 Comp Metabolic Sqe779 BILI T 0.4 mg/dL 09/12/2017 Comp Metabolic Yqy849 ALBUMIN 3.8 g/dL 09/12/2017 Comp Metabolic Vqs481 TPRO 6.4 g/dL 09/12/2017 Comp Metabolic Dgh076 GLOB 2.6 g/dL 09/12/2017 Comp Metabolic Myi948 A/G Ratio 1.5 Ratio 09/12/2017 Comp Metabolic Gus314 Osmo 283 mOsmo 09/12/2017 Cbc With Differential [...] 30.7 pg 09/12/2017 Cbc With Differential Ord2 [place]% 7.2 % 09/12/2017 Cbc With Differential Ord2 [...] 2.46 K/ul 09/12/2017 Cbc With Differential Ord2 [place] ABS# 0.6 K/ul 09/12/2017 Cbc With Differential [...] 31.4 pg 11/07/2016 Cbc With Differential Ord2 [place]% 6.1 % 11/07/2016 Cbc With Differential Ord2 [...] 2.48 K/ul 11/07/2016 Cbc With Differential Ord2 [place] ABS# 0.6 K/ul 11/07/2016 Cbc With Differential Ord2 E[place] ABS# 0.3 K/ul 11/07/2016 Cbc With Differential Ord2 Baso ABS# 0.1 K/ul 11/07/2016 Comp Metabolic Mku043 NA 139 mEq/L 11/07/2016 Comp Metabolic Ele641 K 3.8 mEq/L 11/07/2016 Comp Metabolic Qda286 CL 106 mEq/L 11/07/2016 Comp Metabolic Tuq306 CO2 25.0 mEq/L 11/07/2016 Comp Metabolic Ukp524 ANION GAP 12 11/07/2016 Comp Metabolic Ppc300 GLUCOSE 98 mg/dL 11/07/2016 Comp Metabolic Wox177 Creat 0.8 mg/dL 11/07/2016 Comp Metabolic Vji497 eGFR 71 ml/min/1.73m2 11/07/2016 Comp Metabolic Meb007 BUN 36 mg/dL 11/07/2016 Comp Metabolic Rfd625 B/C Ratio 42.9 Ratio 11/07/2016 Comp Metabolic Ddv302 CALCIUM 9.9 mg/dL 11/07/2016 Comp Metabolic Ekw543 ALK PHOS 57 U/L 11/07/2016 Comp Metabolic Svh911 AST(SGOT) 24 U/L 11/07/2016 Comp Metabolic Qlc317 ALT(SGPT) 28 U/L 11/07/2016 Comp Metabolic Ira962 BILI T 0.4 mg/dL 11/07/2016 Comp Metabolic Zwc077 ALBUMIN 4.2 g/dL 11/07/2016 Comp Metabolic Lhm856 TPRO 7.0 g/dL 11/07/2016 Comp Metabolic Kyv883 GLOB 2.8 g/dL 11/07/2016 Comp Metabolic Ita929 A/G Ratio 1.5 Ratio 11/07/2016 Comp Metabolic Wso546 Osmo 286 mOsmo 11/07/2016 Free T4 Pjr473 FREE T4 0.75 ng/dL 11/07/2016 Tsh Ord6 hTSH II 3.46 uIU/mL 11/07/2016 Comp Metabolic Iav926 NA 138 mEq/L 05/10/2016 Comp Metabolic Wdx202 K 3.8 mEq/L 05/10/2016 Comp Metabolic Mxr221 CL 102 mEq/L 05/10/2016 Comp Metabolic Rvb256 CO2 29.0 mEq/L 05/10/2016 Comp Metabolic Vaz385 ANION GAP 11 05/10/2016 Comp Metabolic Ata194 GLUCOSE 107 mg/dL 05/10/2016 Comp Metabolic Sll035 Creat 0.7 mg/dL 05/10/2016 Comp Metabolic Hix964 eGFR 93 ml/min/1.73m2 05/10/2016 Comp Metabolic Ibu234 BUN 18 mg/dL 05/10/2016 Comp Metabolic Lmw399 B/C Ratio 26.9 Ratio 05/10/2016 Comp Metabolic Syk224 CALCIUM 9.8 mg/dL 05/10/2016 Comp Metabolic Zsi116 ALK PHOS 60 U/L 05/10/2016 Comp Metabolic Yqe834 AST(SGOT) 21 U/L 05/10/2016 Comp Metabolic Ufy772 ALT(SGPT) 23 U/L 05/10/2016 Comp Metabolic Qwv729 BILI T 0.5 mg/dL 05/10/2016 Comp Metabolic Lig621 ALBUMIN 4.1 g/dL 05/10/2016 Comp Metabolic Tgf233 TPRO 6.7 g/dL 05/10/2016 Comp Metabolic Shp921 GLOB 2.7 g/dL 05/10/2016 Comp Metabolic Dle123 A/G Ratio 1.5 Ratio 05/10/2016 Comp Metabolic Adz763 Osmo 278 mOsmo 05/10/2016 Lipid Ord30 CHOL 169 mg/dL 05/10/2016 Lipid Ord30 HDL 50.0 mg/dl 05/10/2016 Lipid Ord30 TRIG 161 mg/dL 05/10/2016 Lipid Ord30 LDL 87 mg/dL 05/10/2016 Lipid Ord30 C/HDL 3.4 Ratio 05/10/2016 Comp Metabolic Gjw807 NA 137 mEq/L 06/12/2015 Comp Metabolic Wqg323 K 3.8 mEq/L 06/12/2015 Comp Metabolic Wym696 CL 104 mEq/L 06/12/2015 Comp Metabolic Qed885 CO2 24.0 mEq/L 06/12/2015 Comp Metabolic Jzm905 ANION GAP 13 06/12/2015 Comp Metabolic Vaz649 GLUCOSE 92 mg/dL 06/12/2015 Comp Metabolic Ujk767 Creat 0.7 mg/dL 06/12/2015 Comp Metabolic Dml324 eGFR 87 ml/min/1.73m2 06/12/2015 Comp Metabolic Voh773 BUN 31 mg/dL 06/12/2015 Comp Metabolic Rbj241 B/C Ratio 43.7 Ratio 06/12/2015 Comp Metabolic Rgz446 CALCIUM 10.0 mg/dL 06/12/2015 Comp Metabolic Gkv434 ALK PHOS 58 U/L 06/12/2015 Comp Metabolic Sco452 AST(SGOT) 32 U/L 06/12/2015 Comp Metabolic Sak869 ALT(SGPT) 33 U/L 06/12/2015 Comp Metabolic Qlz855 BILI T 0.5 mg/dL 06/12/2015 Comp Metabolic Jvd316 ALBUMIN 4.1 g/dL 06/12/2015 Comp Metabolic Byz984 TPRO 6.6 g/dL 06/12/2015 Comp Metabolic Qmj482 GLOB 2.5 g/dL 06/12/2015 Comp Metabolic Iqh720 A/G Ratio 1.6 Ratio 06/12/2015 Comp Metabolic Rcc893 Osmo 280 mOsmo 06/12/2015 Cbc With Differential [...] Differential Ord2 RDW 14.2 % 06/12/2015 CBC 7934305 WBC 8.7 10e9/L 04/30/2013 CBC 6580596 RBC 4.63 10e12/L 04/30/2013 CBC 7285610 HGB 14.1 g/dL 04/30/2013 CBC 6198757 HCT DET 42.2 % 04/30/2013 CBC 2129246 MCV 91.1 fL 04/30/2013 CBC 0410541 MCH 30.5 pg 04/30/2013 CBC 7704278 MCHC 33.4 g/dL 04/30/2013 CBC 4839767 PLT 248 10e9/L 04/30/2013 CBC 3869823 MPV 12.1 fL 04/30/2013 CBC 0569767 LARA % 59.0 % 04/30/2013 CBC 7691466 LY % 27.6 % 04/30/2013 CBC 4104998 MON % 8.0 % 04/30/2013 CBC 8895893 EOS % 4.8 % 04/30/2013 CBC 4845751 BASO % 0.6 % 04/30/2013 CBC 4438194 RDW 13.3 % 04/30/2013 CBC 1958882 ABS LARA 5.13 10e9/L 04/30/2013 CBC 4327196 ABS LYMPH 2.40 10e9/L 04/30/2013 CBC 2108372 ABS MONO 0.70 10e9/L 04/30/2013 CBC 0257689 ABS EOS 0.42 10e9/L 04/30/2013 CBC 5983879 ABS BASO 0.05 10e9/L 04/30/2013 CBC 3497203 RDW-SD 43.1 fL 04/30/2013 TSH 2925264 TSH 4.339 uIU/ML 04/30/2013 A1C HPLC 9471213 A1C HPLC 82513-6 5.6 % 04/30/2013 FREE T4 3854577 FREE T4 0.84 NG/DL 04/30/2013 GFR CALC 0689384 GFR AA >60 ML/MIN 04/30/2013 GFR CALC 8594079 GFR NON-AA >60 ML/MIN 04/30/2013 CHEM 14 8827644 AST 22 U/L 04/30/2013 CHEM 14 9066192 ALT 22 IU/L 04/30/2013 CHEM 14 7597319 BUN 24 MG/DL 04/30/2013 CHEM 14 6789037 ALBUMIN 4.2 GM/DL 04/30/2013 CHEM 14 3367036 CHLORIDE 107 MMOL/L 04/30/2013 CHEM 14 3704330 BILI TOT 0.3 MG/DL 04/30/2013 CHEM 14 8633312 ALK PHOS 88 U/L 04/30/2013 CHEM 14 4664092 SODIUM 141 MMOL/L 04/30/2013 CHEM 14 1657609 CREATININE 0.60 MG/DL 04/30/2013 CHEM 14 2952478 CALCIUM 9.9 MG/DL 04/30/2013 CHEM 14 1125297 POTASSIUM 3.7 MMOL/L 04/30/2013 CHEM 14 7497547 PROT TOT 6.6 GM/DL 04/30/2013 CHEM 14 6537427 GLUCOSE 123 MG/DL 04/30/2013 CHEM 14 7357541 BICARB 25 MMOL/L 04/30/2013 CHEM 14 5974673 ANION GAP 9 MEQ/L 04/30/2013 LIPID GRP HDL TEST 46 MG/DL 04/30/2013 LIPID GRP TRIG 148 MG/DL 04/30/2013 LIPID GRP TEST LDL 75 MG/DL 04/30/2013 LIPID GRP CHOL 151 MG/DL 04/30/2013 LIPID GRP RCHOL/HDL 3.28 RATIO 04/30/2013 TSH 5956035 TSH 3.341 uIU/ML 11/29/2012 CBC 4328177 WBC 8.4 10e9/L 11/29/2012 CBC 8644845 RBC 4.77 10e12/L 11/29/2012 CBC 9682054 HGB 14.9 g/dL 11/29/2012 CBC 7752168 HCT DET 44.2 % 11/29/2012 CBC 9816694 MCV 92.7 fL 11/29/2012 CBC 8379135 MCH 31.2 pg 11/29/2012 CBC 0876431 MCHC 33.7 g/dL 11/29/2012 CBC 1753132 PLT 253 10e9/L 11/29/2012 CBC 5279981 MPV 11.8 fL 11/29/2012 CBC 0451515 LARA % 54.9 % 11/29/2012 CBC 4414075 LY % 29.0 % 11/29/2012 CBC 3470984 MON % 10.4 % 11/29/2012 CBC 5252489 EOS % 5.1 % 11/29/2012 CBC 6075746 BASO % 0.6 % 11/29/2012 CBC 6397711 RDW 13.8 % 11/29/2012 CBC 5062008 ABS LARA 4.61 10e9/L 11/29/2012 CBC 3373469 ABS LYMPH 2.44 10e9/L 11/29/2012 CBC 3699018 ABS MONO 0.87 10e9/L 11/29/2012 CBC 2526729 ABS EOS 0.43 10e9/L 11/29/2012 CBC 2210483 ABS BASO 0.05 10e9/L 11/29/2012 CBC 1781224 RDW-SD 45.9 fL 11/29/2012 CHEM 14 2993850 AST 25 U/L 11/29/2012 CHEM 14 4770104 ALT 26 IU/L 11/29/2012 CHEM 14 2695760 BUN 25 MG/DL 11/29/2012 CHEM 14 2337702 ALBUMIN 4.4 GM/DL 11/29/2012 CHEM 14 4323545 CHLORIDE 106 MMOL/L 11/29/2012 CHEM 14 6713336 BILI TOT 0.4 MG/DL 11/29/2012 CHEM 14 3444785 ALK PHOS 86 U/L 11/29/2012 CHEM 14 0446346 SODIUM 141 MMOL/L 11/29/2012 CHEM 14 5565522 CREATININE 0.80 MG/DL 11/29/2012 CHEM 14 5450752 CALCIUM 9.7 MG/DL 11/29/2012 CHEM 14 9241206 POTASSIUM 4.0 MMOL/L 11/29/2012 CHEM 14 3785734 PROT TOT 6.6 GM/DL 11/29/2012 CHEM 14 4737778 GLUCOSE 112 MG/DL 11/29/2012 CHEM 14 6796222 BICARB 29 MMOL/L 11/29/2012 CHEM 14 2754512 ANION GAP 6 MEQ/L 11/29/2012 A1C HPLC 3862155 A1C HPLC 99054-3 5.5 % 11/29/2012 LIPID GRP HDL TEST 54 MG/DL 11/29/2012 LIPID GRP TRIG 77 MG/DL 11/29/2012 LIPID GRP TEST LDL 78 MG/DL 11/29/2012 LIPID GRP CHOL 147 MG/DL 11/29/2012 LIPID GRP RCHOL/HDL 2.72 RATIO 11/29/2012 FREE T4 4715694 FREE T4 1.23 NG/DL 11/29/2012 GFR CALC 2364675 GFR AA >60 ML/MIN 11/29/2012 GFR CALC 9521759 GFR NON-AA >60 ML/MIN 11/29/2012 CHEM 14 3363903 AST 23 U/L 08/07/2012 CHEM 14 0052016 ALT 34 IU/L 08/07/2012 CHEM 14 7062332 BUN 26 MG/DL 08/07/2012 CHEM 14 7200473 ALBUMIN 4.4 GM/DL 08/07/2012 CHEM 14 7980413 CHLORIDE 105 MMOL/L 08/07/2012 CHEM 14 0391755 BILI TOT 0.5 MG/DL 08/07/2012 CHEM 14 9723608 ALK PHOS 79 U/L 08/07/2012 CHEM 14 9315728 SODIUM 140 MMOL/L 08/07/2012 CHEM 14 4386359 CREATININE 0.71 MG/DL 08/07/2012 CHEM 14 8593520 CALCIUM 10.4 MG/DL 08/07/2012 CHEM 14 0568649 POTASSIUM 3.8 MMOL/L 08/07/2012 CHEM 14 0411254 PROT TOT 6.8 GM/DL 08/07/2012 CHEM 14 7011383 GLUCOSE 104 MG/DL 08/07/2012 CHEM 14 3039934 BICARB 27 MMOL/L 08/07/2012 CHEM 14 9665224 ANION GAP 8 MEQ/L 08/07/2012 A1C HPLC 4925735 A1C HPLC 51864-0 5.4 % 08/07/2012 FREE T4 1361434 FREE T4 1.11 NG/DL 08/07/2012 LIPID GRP HDL TEST 50 MG/DL 08/07/2012 LIPID GRP TRIG 127 MG/DL 08/07/2012 LIPID GRP TEST LDL 93 MG/DL 08/07/2012 LIPID GRP CHOL 168 MG/DL 08/07/2012 LIPID GRP RCHOL/HDL 3.36 RATIO 08/07/2012 CBC 0913525 WBC 8.7 10e9/L 08/07/2012 CBC 0953459 RBC 4.67 10e12/L 08/07/2012 CBC 3391786 HGB 14.4 g/dL 08/07/2012 CBC 1012656 HCT DET 42.8 % 08/07/2012 CBC 1749844 MCV 91.6 fL 08/07/2012 CBC 1210184 MCH 30.8 pg 08/07/2012 CBC 7105534 MCHC 33.6 g/dL 08/07/2012 CBC 5073456 PLT 271 10e9/L 08/07/2012 CBC 1540144 MPV 12.3 fL 08/07/2012 CBC 8832144 LARA % 50.6 % 08/07/2012 CBC 5090738 LY % 34.9 % 08/07/2012 CBC 7614211 MON % 9.1 % 08/07/2012 CBC 7577143 EOS % 5.1 % 08/07/2012 CBC 9707945 BASO % 0.3 % 08/07/2012 CBC 0506323 RDW 13.6 % 08/07/2012 CBC 3571997 ABS LARA 4.40 10e9/L 08/07/2012 CBC 8321648 ABS LYMPH 3.04 10e9/L 08/07/2012 CBC 9118800 ABS MONO 0.79 10e9/L 08/07/2012 CBC 7148102 ABS EOS 0.44 10e9/L 08/07/2012 CBC 3786537 ABS BASO 0.03 10e9/L 08/07/2012 CBC 4480978 RDW-SD 44.1 fL 08/07/2012 TSH 5000131 TSH 7.419 uIU/ML 08/07/2012 GFR CALC 0609524 GFR AA >60 ML/MIN 08/07/2012 GFR CALC 8629571 GFR NON-AA >60 ML/MIN 08/07/2012 A1C HPLC 8707488 A1C HPLC 25065-1 5.3 % 02/21/2012 TSH 5746517 TSH 0.832 uIU/ML 02/16/2012 FREE T4 6885400 FREE T4 1.04 NG/DL 02/16/2012 GFR CALC 0531596 GFR AA >60 ML/MIN 02/16/2012 GFR CALC 9176973 GFR NON-AA >60 ML/MIN 02/16/2012 [facility] GLUCOSE 112 MG/DL 02/16/2012 [facility] CREATININE 0.65 MG/DL 02/16/2012 [facility] BUN 17 MG/DL 02/16/2012 [facility] SODIUM 144 MMOL/L 02/16/2012 BMP POTASSIUM 4.0 MMOL/L 02/16/2012 [facility] CHLORIDE 107 MMOL/L 02/16/2012 [facility] BICARB 29 MMOL/L 02/16/2012 [facility] ANION GAP 8 MEQ/L 02/16/2012 [facility] CALCIUM 9.5 MG/DL 02/16/2012 CBC 7251071 WBC 7.1 10e9/L 02/16/2012 CBC 1843916 RBC 4.47 10e12/L 02/16/2012 CBC 2982089 HGB 13.5 g/dL 02/16/2012 CBC 1340541 HCT DET 40.7 % 02/16/2012 CBC 3815853 MCV 91.1 fL 02/16/2012 CBC 8974973 MCH 30.2 pg 02/16/2012 CBC 9702417 MCHC 33.2 g/dL 02/16/2012 CBC 9218557 PLT 238 10e9/L 02/16/2012 CBC 2751007 MPV 11.4 fL 02/16/2012 CBC 1636624 LARA % 55.7 % 02/16/2012 CBC 8528695 LY % 29.6 % 02/16/2012 CBC 8005503 MON % 9.2 % 02/16/2012 CBC 4903795 EOS % 5.1 % 02/16/2012 CBC 1581257 BASO % 0.4 % 02/16/2012 CBC 9720964 RDW 13.0 % 02/16/2012 CBC 4010956 ABS LARA 3.95 10e9/L 02/16/2012 CBC 8288637 ABS LYMPH 2.10 10e9/L 02/16/2012 CBC 0129085 ABS MONO 0.65 10e9/L 02/16/2012 CBC 1629435 ABS EOS 0.36 10e9/L 02/16/2012 CBC 8595517 ABS BASO 0.03 10e9/L 02/16/2012 CBC 9453439 RDW-SD 42.4 fL 02/16/2012 URINALYSIS NONAUTO W/O SCOPE 18726 Specific [place] 1.015 DateTime(Free Text in Aprima) URINALYSIS NONAUTO W/O SCOPE 86032 PH 7 DateTime(Free Text in Aprima) URINALYSIS NONAUTO W/O SCOPE 11026 GLUCOSE neg DateTime(Free Text in Aprima) URINALYSIS NONAUTO W/O SCOPE 00592 Protein 1+ DateTime(Free Text in Aprima) URINALYSIS NONAUTO W/O SCOPE 21482 Blood neg DateTime(Free Text in Aprima) URINALYSIS NONAUTO W/O SCOPE 52736 Bilirubin neg DateTime(Free Text in Aprima) URINALYSIS NONAUTO W/O SCOPE 41702 Ketones neg DateTime(Free Text in Aprima) URINALYSIS NONAUTO W/O SCOPE 90479 Urobilinogen neg DateTime(Free Text in Aprima) URINALYSIS NONAUTO W/O SCOPE 22010 Nitrite postive DateTime(Free Text in Aprima) URINALYSIS NONAUTO W/O SCOPE 03025 Leukocytes 3+ DateTime(Free Text in Aprima) URINALYSIS NONAUTO W/O SCOPE 97004 Specific [place] 1.030 DateTime(Free Text in Aprima) URINALYSIS NONAUTO W/O SCOPE 09835 PH 6 DateTime(Free Text in Aprima) URINALYSIS NONAUTO W/O SCOPE 46695 GLUCOSE neg DateTime(Free Text in Aprima) URINALYSIS NONAUTO W/O SCOPE 26433 Protein neg DateTime(Free Text in Aprima) URINALYSIS NONAUTO W/O SCOPE 61703 Blood neg DateTime(Free Text in Aprima) URINALYSIS NONAUTO W/O SCOPE 13535 Bilirubin neg DateTime(Free Text in Aprima) URINALYSIS NONAUTO W/O SCOPE 57338 Ketones neg DateTime(Free Text in Aprima) URINALYSIS NONAUTO W/O SCOPE 63783 Urobilinogen neg DateTime(Free Text in Aprima) URINALYSIS NONAUTO W/O SCOPE 09540 Nitrite neg DateTime(Free Text in Aprima) URINALYSIS NONAUTO W/O SCOPE 80265 Leukocytes trace DateTime(Free Text in Aprima) URINALYSIS NONAUTO W/O SCOPE 74698 Specific [place] 1.005 DateTime(Free Text in Aprima) URINALYSIS NONAUTO W/O SCOPE 45249 PH 5 DateTime(Free Text in Aprima) URINALYSIS NONAUTO W/O SCOPE 52571 GLUCOSE neg DateTime(Free Text in Aprima) URINALYSIS NONAUTO W/O SCOPE 83944 Protein neg DateTime(Free Text in Aprima) URINALYSIS NONAUTO W/O SCOPE 14370 Blood neg DateTime(Free Text in Aprima) URINALYSIS NONAUTO W/O SCOPE 63966 Bilirubin neg DateTime(Free Text in Aprima) URINALYSIS NONAUTO W/O SCOPE 24212 Ketones neg DateTime(Free Text in Aprima) URINALYSIS NONAUTO W/O SCOPE 45124 Urobilinogen neg DateTime(Free Text in Aprima) URINALYSIS NONAUTO W/O SCOPE 27193 Nitrite neg DateTime(Free Text in Aprima) URINALYSIS NONAUTO W/O SCOPE 60512 Leukocytes neg DateTime(Free Text in Aprima) UA 59075 Specific [place] 1.030 DateTime(Free Text in Aprima) UA 18373 PH 5 DateTime(Free Text in Aprima) UA 44797 GLUCOSE neg DateTime(Free Text in Aprima) UA 71786 Protein trace DateTime(Free Text in Aprima) UA 78111 Blood large DateTime(Free Text in Aprima) UA 07347 Bilirubin neg DateTime(Free Text in Aprima) UA 79052 Ketones neg DateTime(Free Text in Aprima) UA 15644 Urobilinogen neg DateTime(Free Text in Aprima) UA 04060 Nitrite neg DateTime(Free Text in Aprima) UA 96813 Leukocytes large DateTime(Free Text in Apr) Review [...] Codes Date URINALYSIS NONAUTO W/O SCOPE CPT-4: 41298 07/10/2018 TRIAMCINOLONE ACET INJ NOS CPT-4: J3301 05/28/2018 ROCEPHIN, PER 250 MG CPT- 4: J0696 05/28/2018 ROCEPHIN, PER 250 MG CPT- 4: J0696 01/19/2018 TRIAMCINOLONE ACET INJ NOS CPT-4: J3301 01/19/2018 PPPS, SUBSEQ VISIT CPT- 4: G0439 11/23/2017 TRIAMCINOLONE ACET INJ NOS CPT-4: J3301 06/27/2017 THER/PROPH/DIAG INJ SC/IM CPT-4: 30215 04/20/2017 TRIAMCINOLONE ACET INJ NOS CPT-4: J3301 04/20/2017 TRIAMCINOLONE ACET INJ NOS CPT-4: J3301 03/14/2017 ROCEPHIN, PER 250 MG CPT- 4: J0696 03/14/2017 DESTRUCT PREMALG LESION CPT-4: 88847 12/05/2016 DESTRUCT PREMALG LES 2-14 CPT-4: 30328 12/05/2016 URINALYSIS NONAUTO W/O SCOPE CPT-4: 60900 11/28/2016 ROCEPHIN, PER 250 MG CPT- 4: J0696 11/28/2016 PPPS, SUBSEQ VISIT CPT- 4: G0439 11/07/2016 THER/PROPH/DIAG INJ SC/IM CPT-4: 55798 11/07/2016 TRIAMCINOLONE ACET INJ NOS CPT-4: J3301 11/07/2016 ROCEPHIN, PER 250 MG CPT- 4: J0696 11/07/2016 THER/PROPH/DIAG INJ SC/IM CPT-4: 08452 08/15/2016 TRIAMCINOLONE ACET INJ NOS CPT-4: J3301 08/15/2016 ROCEPHIN, PER 250 MG CPT- 4: J0696 08/15/2016 URINALYSIS NONAUTO W/O SCOPE CPT-4: 33059 05/05/2016 ROCEPHIN, PER 250 MG CPT- 4: J0696 12/07/2015 TRIAMCINOLONE ACET INJ NOS CPT-4: J3301 11/24/2015 ROCEPHIN, PER 250 MG CPT- 4: J0696 11/24/2015 THER/PROPH/DIAG INJ SC/IM CPT-4: 81037 11/24/2015 THER/PROPH/DIAG INJ SC/IM CPT-4: 79104 08/27/2015 KETOROLAC TROMETHAMINE INJ CPT-4: J1885 08/27/2015 PROMETHAZINE HCL INJECTION CPT-4: J2550 08/27/2015 THER/PROPH/DIAG INJ SC/IM CPT-4: 29771 08/10/2015 TRIAMCINOLONE ACET INJ NOS CPT-4: J3301 08/10/2015 ROCEPHIN, PER 250 MG CPT- 4: J0696 08/10/2015 C LUISUN RTS (CULTURE OTHR SPECIMN AEROBIC) CPT-4: 57147 07/28/2015 THER/PROPH/DIAG INJ SC/IM CPT-4: 59255 03/19/2015 TRIAMCINOLONE ACET INJ NOS CPT-4: J3301 03/19/2015 ROCEPHIN, PER 250 MG CPT- 4: J0696 06/23/2014 TRIAMCINOLONE ACET INJ NOS CPT-4: J3301 06/23/2014 INJ TRIGGER POINT 1/2 MUSCL CPT-4: 70830 06/05/2014 URINALYSIS NONAUTO W/O SCOPE CPT-4: 86901 02/11/2014 URINALYSIS NONAUTO W/O SCOPE CPT-4: 24981 10/15/2013 ROCEPHIN, PER 250 MG CPT- 4: J0696 09/24/2013 THER/PROPH/DIAG INJ SC/IM CPT-4: 95380 09/19/2013 ROCEPHIN, PER 250 MG CPT- 4: J0696 09/19/2013 PRESCRIP TRANSMIT VIA ERX SY CPT-4: G8553 08/05/2013 ROCEPHIN, PER 250 MG CPT- 4: J0696 07/10/2013 THER/PROPH/DIAG INJ SC/IM CPT-4: 51676 07/10/2013 TRIAMCINOLONE ACET INJ NOS CPT-4: J3301 07/10/2013 PRESCRIP TRANSMIT VIA ERX SY CPT-4: G8553 07/10/2013 21883 EST. PATIENT, LEVEL III CPT-4: 60902 06/03/2013 PRESCRIP TRANSMIT VIA ERX SY CPT-4: G8553 06/03/2013 PRESCRIP TRANSMIT VIA ERX SY CPT-4: G8553 05/07/2013 ROUTINE VENIPUNCTURE CPT- 4: 32389 04/30/2013 ROUTINE VENIPUNCTURE CPT- 4: 20632 11/29/2012 TRIAMCINOLONE ACET INJ NOS CPT-4: J3301 09/24/2012 THER/PROPH/DIAG INJ SC/IM CPT-4: 40191 09/24/2012 URINALYSIS NONAUTO W/O SCOPE CPT-4: 78559 09/24/2012 PRESCRIP TRANSMIT VIA ERX SY CPT-4: G8553 09/24/2012 PRESCRIP TRANSMIT VIA ERX SY CPT-4: G8553 09/10/2012 PRESCRIP TRANSMIT VIA ERX SY CPT-4: G8553 08/08/2012 ROUTINE VENIPUNCTURE CPT- 4: 82006 08/07/2012 ROUTINE VENIPUNCTURE CPT- 4: 57490 02/16/2012 URINALYSIS NONAUTO W/O SCOPE CPT-4: 81361 02/15/2012 ROCEPHIN, PER 250 MG CPT- 4: J0696 02/15/2012 PRESCRIP TRANSMIT VIA ERX SY CPT-4: G8553 02/15/2012 ROUTINE VENIPUNCTURE CPT- 4: 93531 11/08/2011 ROCEPHIN, PER 250 MG CPT- 4: J0696 07/14/2011 THER/PROPH/DIAG INJ SC/IM CPT-4: 61822 07/14/2011 Influenza Virus Vaccine, Split Virus, >3 Yrs, IM CPT-4: 33251 05/23/2011 IMMUNIZATION ADMIN CPT- 4: 95438 05/23/2011 THER/PROPH/DIAG INJ SC/IM CPT-4: 34257 05/03/2011 ROCEPHIN, PER 250 MG CPT- 4: J0696 05/03/2011 TRIAMCINOLONE ACET INJ NOS CPT-4: J3301 05/03/2011 Vital Signs Date Vital 07/10/2018 Blood Pressure 1: 156/82 Code: 8480-6 BMI: 31.1 Code: 08966-0 Heart Rate 1: 63 bpm Height: 4'11" SpO2: 99% Weight: 154 lbs 05/28/2018 Blood Pressure 1: 142/80 Code: 8480-6 Heart Rate 1: 82 bpm Height: SpO2: 97% Temperature: 35.9 (C) / 96.6 (F) Weight: 02/07/2018 Height: Weight: 01/19/2018 Blood Pressure 1: 128/76 Code: 8480-6 BMI: 31.2 Code: 27738-4 Heart Rate 1: 71 bpm Height: 4'11" SpO2: 96% Temperature: 36.5 (C) / 97.7 (F) Weight: 154 lbs 8 oz 11/23/2017 Blood Pressure 1: 146/80 Code: 8480-6 BMI: 31.7 Code: 77036-1 Heart Rate 1: 64 bpm Height: 4'11" SpO2: 97% Waist Measure (cm): 89 cm Weight: 157 lbs 09/12/2017 Blood Pressure 1: 140/86 Code: 8480-6 Heart Rate 1: 62 bpm SpO2: 96% Temperature: 36.6 (C) / 97.8 (F) Weight: 153 lbs 07/25/2017 Blood Pressure 1: 140/72 Code: 8480-6 BMI: 31.3 Code: 33379-1 Heart Rate 1: 76 bpm Height: 4'11" SpO2: 97% Temperature: 37.2 (C) / 99.0 (F) Weight: 155 lbs 06/27/2017 Blood Pressure 1: 144/84 Code: 8480-6 BMI: 31.1 Code: 67355-4 Heart Rate 1: 63 bpm Height: 4'11" SpO2: 99% Temperature: 36.4 (C) / 97.6 (F) Weight: 154 lbs 05/08/2017 Blood Pressure 1: 142/86 Code: 8480-6 BMI: 30.9 Code: 66933-4 Height: 4'11" Temperature: 36.3 (C) / 97.4 (F) Weight: 153 lbs 03/14/2017 Blood Pressure 1: 146/82 Code: 8480-6 BMI: 30.9 Code: 56315-7 Heart Rate 1: 64 bpm Height: 4'11" SpO2: 94% Weight: 153 lbs 02/20/2017 Blood Pressure 1: 142/80 Code: 8480-6 BMI: 30.9 Code: 34599-8 Heart Rate 1: 75 bpm Height: 4'11" SpO2: 97% Weight: 153 lbs 02/06/2017 Blood Pressure 1: 138/90 Code: 8480-6 BMI: 31.5 Code: 80705-8 Heart Rate 1: 61 bpm Height: 4'11" SpO2: 98% Weight: 156 lbs 12/05/2016 Blood Pressure 1: 122/72 Code: 8480-6 Heart Rate 1: 59 bpm Height: 4'11" SpO2: 98% Weight: 11/28/2016 Blood Pressure 1: 154/86 Code: 8480-6 BMI: 31.3 Code: 29088-3 Heart Rate 1: 64 bpm Height: 4'11" SpO2: 94% Temperature: 36.2 (C) / 97.2 (F) Weight: 155 lbs 11/07/2016 Blood Pressure 1: 128/64 Code: 8480-6 BMI: 31.5 Code: 98819-2 Heart Rate 1: 59 bpm Height: 4'11" SpO2: 97% Weight: 156 lbs 08/15/2016 Blood Pressure 1: 110/62 Code: 8480-6 BMI: 31.5 Code: 94208-0 Heart Rate 1: 76 bpm Height: 4'11" SpO2: 97% Weight: 156 lbs 06/07/2016 Blood Pressure 1: 120/80 Code: 8480-6 BMI: 32.9 Code: 74828-8 Heart Rate 1: 63 bpm Height: 4'11" SpO2: 93% Temperature: 36.5 (C) / 97.7 (F) Weight: 163 lbs 03/15/2016 Blood Pressure 1: 90/42 Code: 8480-6 Heart Rate 1: 65 bpm SpO2: 94% 03/14/2016 Blood Pressure 1: 188/110 Code: 8480-6 Heart Rate 1: 68 bpm SpO2: 96% 02/22/2016 Blood Pressure 1: 158/80 Code: 8480-6 BMI: 32.7 Code: 09376-8 Heart Rate 1: 71 bpm Height: 4'11" SpO2: 95% Weight: 162 lbs 12/07/2015 Blood Pressure 1: 140/88 Code: 8480-6 BMI: 32.9 Code: 14028-1 Heart Rate 1: 99 bpm Height: 4'11" SpO2: 94% Temperature: 35.9 (C) / 96.6 (F) Weight: 163 lbs 11/24/2015 Blood Pressure 1: 144/78 Code: 8480-6 BMI: 33.7 Code: 99949-9 Heart Rate 1: 60 bpm Height: 4'11" SpO2: 98% Temperature: 36.6 (C) / 97.9 (F) Weight: 167 lbs 08/27/2015 Blood Pressure 1: 164/82 Code: 8480-6 BMI: 32.3 Code: 42849-1 Heart Rate 1: 60 bpm Height: 4'11" SpO2: 93% Weight: 160 lbs 08/10/2015 Blood Pressure 1: 130/60 Code: 8480-6 BMI: 32.5 Code: 61245-5 Heart Rate 1: 64 bpm Height: 4'11" SpO2: 97% Weight: 161 lbs 07/28/2015 Blood Pressure 1: 124/68 Code: 8480-6 BMI: 32.5 Code: 19531-1 Heart Rate 1: 69 bpm Height: 4'11" SpO2: 97% Weight: 161 lbs 06/11/2015 Blood Pressure 1: 148/80 Code: 8480-6 BMI: 32.9 Code: 18614-9 Heart Rate 1: 70 bpm Height: 4'11" SpO2: 94% Weight: 163 lbs 03/19/2015 Blood Pressure 1: 150/102 Code: 8480-6 Blood Pressure 2: 152/92 Code: 8480-6 BMI: 32.5 Code: 50729-9 Heart Rate 1: 71 bpm Height: 4'11" SpO2: 96% Weight: 161 lbs 01/07/2015 Blood Pressure 1: 126/84 Code: 8480-6 Heart Rate 1: 80 bpm Height: 4'11" 09/23/2014 Blood Pressure 1: 112/72 Code: 8480-6 BMI: 33.9 Code: 25154-7 Heart Rate 1: 72 bpm Height: 4'11" Weight: 168 lbs 08/05/2014 Blood Pressure 1: 140/86 Code: 8480-6 BMI: 33.3 Code: 86260-9 Height: 4'11" Weight: 165 lbs 06/23/2014 Blood Pressure 1: 132/70 Code: 8480-6 BMI: 32.9 Code: 50682-7 Heart Rate 1: 58 bpm Height: 4'11" Temperature: 36.0 (C) / 96.8 (F) Weight: 163 lbs 06/05/2014 Blood Pressure 1: 121/85 Code: 8480-6 BMI: 34.3 Code: 65694-9 Height: 4'11" Weight: 170 lbs 04/03/2014 Blood Pressure 1: 128/80 Code: 8480-6 Heart Rate 1: 88 bpm Weight: 167 lbs 03/07/2014 Blood Pressure 1: 122/82 Code: 8480-6 BMI: 33.9 Code: 74564-6 Heart Rate 1: 68 bpm Height: 4'11" Weight: 168 lbs 11/21/2013 Blood Pressure 1: 100/58 Code: 8480-6 BMI: 33.7 Code: 39286-1 Heart Rate 1: 64 bpm Height: 4'11" Weight: 167 lbs 09/24/2013 Blood Pressure 1: 148/88 Code: 8480-6 Heart Rate 1: 68 bpm Weight: 09/19/2013 Blood Pressure 1: 120/80 Code: 8480-6 BMI: 33.9 Code: 28564-1 Heart Rate 1: 80 bpm Height: 4'11" Temperature: 36.9 (C) / 98.5 (F) Weight: 168 lbs 08/05/2013 Blood Pressure 1: 128/80 Code: 8480-6 BMI: 34.3 Code: 77999-9 Heart Rate 1: 64 bpm Height: 4'11" Temperature: 36.2 (C) / 97.2 (F) Weight: 170 lbs 07/10/2013 Blood Pressure 1: 120/84 Code: 8480-6 BMI: 36.0 Code: 05908-0 Heart Rate 1: 90 bpm Height: 4'11" SpO2: 97% Temperature: 36.8 (C) / 98.2 (F) Weight: 178 lbs 06/03/2013 Blood Pressure 1: 136/94 Code: 8480-6 BMI: 34.7 Code: 96914-6 Heart Rate 1: 68 bpm Height: 4'11" Temperature: 36.7 (C) / 98.0 (F) Weight: 172 lbs 05/13/2013 Blood Pressure 1: 132/90 Code: 8480-6 Heart Rate 1: 68 bpm 05/07/2013 Blood Pressure 1: 168/100 Code: 8480-6 BMI: 34.3 Code: 61415-2 Heart Rate 1: 76 bpm Height: 4'11" Weight: 170 lbs 12/03/2012 Blood Pressure 1: 142/78 Code: 8480-6 BMI: 33.5 Code: 85232-6 Heart Rate 1: 76 bpm Height: 4'11" Weight: 166 lbs 09/24/2012 Blood Pressure 1: 116/70 Code: 8480-6 Heart Rate 1: 68 bpm Respiratory Rate: 16 bpm Temperature: 36.9 (C) / 98.4 (F) Weight: 162 lbs 09/10/2012 Blood Pressure 1: 116/80 Code: 8480-6 BMI: 33.7 Code: 10032-5 Heart Rate 1: 76 bpm Height: 4'11" [...] 1: 149/85 Code: 8480-6 BMI: 32.9 Code: 94709-1 Heart Rate 1: 79 bpm Height: 4'11" Weight: 164 lbs 05/03/2011 Blood Pressure 1: 122/79 Code: 8480-6 BMI: 30.8 Code: 01988-5 Heart Rate 1: 72 bpm Height: 5'1" Weight: 163 lbs 04/25/2011 Blood Pressure 1: 137/84 Code: 8480-6 BMI: 31.0 Code: 29769-9 Heart Rate 1: 63 bpm Height: 5'1" [...] surg in december. then took trip to [facility] to see mother and has [...] Quality chronic 08/01/2011 states went shopping on [employer] over night without taking any of medications [...] data Encounters Encounter Performer Location Codes Date ([id number]) 79858 EST. PATIENT, LEVEL III Diagnosis: Acute recurrent maxillary sinusitis[ICD10: J01.01] Diagnosis: Frequency of micturition[ICD10: R35.0] Diagnosis: Low back pain[ICD10: M54.5] Shahida Goldman MD, [facility] CPT-4: 62409 07/10/2018 [id number]) 55906 EST. PATIENT, LEVEL III Diagnosis: Acute recurrent maxillary sinusitis[ICD10: J01.01] Shahida Goldman MD, [facility] CPT-4: 70594 05/28/2018 ([id number]) Miscellaneous no charge Diagnosis: Laceration without foreign body, left lower leg, subsequent encounter[ICD10: S81.812D] Diagnosis: Laceration without foreign body, right lower leg, subsequent encounter[ICD10: S81.811D] Isabelle Goldman MD, [facility] CPT-4: 95308 02/08/2018 33855 EST. PATIENT, LEVEL III Diagnosis: Cellulitis of left lower limb[ICD10: L03.116] Diagnosis: Cellulitis of right lower limb[ICD10: L03.115] Diagnosis: Laceration without foreign body, left lower leg, initial encounter[ICD10: S81.812A] Diagnosis: Laceration without foreign body, right lower leg, initial encounter[ICD10: S81.811A] Isabelle Goldman MD, [facility] CPT-4: 28152 02/07/2018 24717 62993 EST. PATIENT, LEVEL IV Diagnosis: Primary generalized (osteo)arthritis[ICD10: M15.0] Diagnosis: Acute recurrent maxillary sinusitis[ICD10: J01.01] Diagnosis: Low back pain[ICD10: M54.5] Diagnosis: Other allergic rhinitis[ICD10: J30.89] Diagnosis: Obstructive sleep apnea (adult) (pediatric)[ICD10: G47.33] Shahida Goldman MD, [facility] CPT-4: 54696 01/19/2018 62849 EST. PATIENT, LEVEL IV Diagnosis: Diarrhea, unspecified[ICD10: R19.7] Diagnosis: Generalized abdominal pain[ICD10: R10.84] Diagnosis: Other allergic rhinitis[ICD10: J30.89] Diagnosis: Other acute sinusitis[ICD10: J01.80] Isabelle Goldman MD, [facility] CPT- 4: 33776 09/12/2017 95276 EST. PATIENT, LEVEL III Diagnosis: Acute laryngopharyngitis[ICD10: J06.0] Diagnosis: Other allergic rhinitis[ICD10: J30.89] Diagnosis: Cough[ICD10: R05] Diagnosis: Wheezing[ICD10: R06.2] Isabelle Goldman MD, [facility] CPT-4: 25617 07/25/2017 ([id number]) 24911 EST. PATIENT, LEVEL IV Diagnosis: Acute recurrent maxillary sinusitis[ICD10: J01.01] Diagnosis: Cervicalgia[ICD10: M54.2] Diagnosis: Diarrhea, unspecified[ICD10: R19.7] Shahida Goldman MD, [facility] CPT-4: 38598 06/27/2017 ([id number]) 65989 EST. PATIENT, LEVEL III Diagnosis: Chronic maxillary sinusitis[ICD10: J32.0] Diagnosis: Gastro-esophageal reflux disease without esophagitis[ICD10: K21.9] Shahida Goldman MD, [facility] CPT-4: 72673 05/08/2017 ([id number]) 51390 EST. PATIENT, LEVEL III Diagnosis: Acute recurrent maxillary sinusitis[ICD10: J01.01] Shahida Goldman MD, [facility] CPT-4: 31093 03/14/2017 48623 EST. PATIENT, LEVEL IV Diagnosis: Epigastric pain[ICD10: R10.13] Diagnosis: Left upper quadrant pain[ICD10: R10.12] Diagnosis: Left lower quadrant pain[ICD10: R10.32] Isabelle Goldman MD, [facility] CPT-4: 09248 02/20/2017 ([id number]) 47967 EST. PATIENT, LEVEL IV Diagnosis: Generalized anxiety disorder[ICD10: F41.1] Diagnosis: Major depressive disorder, recurrent, moderate[ICD10: F33.1] Diagnosis: Left upper quadrant pain[ICD10: R10.12] Diagnosis: Epigastric pain[ICD10: R10.13] Diagnosis: Actinic keratosis[ICD10: L57.0] Melba Goldman MD, [facility] CPT-4: 39990 02/06/2017 ([id number]) 20339 EST. PATIENT, LEVEL III Diagnosis: Actinic keratosis[ICD10: L57.0] Diagnosis: Major depressive disorder, recurrent, moderate[ICD10: F33.1] Melba Goldman MD, [facility] CPT-4: 08194 12/05/2016 ([id number]) 85039 EST. PATIENT, LEVEL III Diagnosis: Acute recurrent maxillary sinusitis[ICD10: J01.01] Diagnosis: Dysuria[ICD10: R30.0] Shahida Goldman MD, [facility] CPT-4: 77508 11/28/2016 31976 EST. PATIENT, LEVEL IV Diagnosis: Other acute sinusitis[ICD10: J01.80] Diagnosis: Acute laryngopharyngitis[ICD10: J06.0] Diagnosis: Other allergic rhinitis[ICD10: J30.89] Isabelle Goldman MD, [facility] CPT- 4: 70221 08/15/2016 ([id number]) 37425 EST. PATIENT, LEVEL III Diagnosis: Acute recurrent maxillary sinusitis[ICD10: J01.01] Diagnosis: Low back pain[ICD10: M54.5] Shahida Goldman MD, [facility] CPT-4: 65423 06/07/2016 ([id number]) Miscellaneous no charge Diagnosis: Essential (primary) hypertension[ICD10: I10] Shahida Goldman MD, [facility] CPT-4: 47113 03/15/2016 95870 EST. PATIENT, LEVEL IV Diagnosis: Essential (primary) hypertension[ICD10: I10] Diagnosis: Headache[ICD10: R51] Diagnosis: Generalized anxiety disorder[ICD10: F41.1] Shahida Goldman MD, [facility] CPT-4: 63911 03/14/2016 53305 EST. PATIENT, LEVEL III Diagnosis: Laceration without foreign body, left lower leg, initial encounter[ICD10: S81.812A] Isabelle Goldman MD, [facility] CPT-4: 68999 02/22/2016 ([id number]) 77330 EST. PATIENT, LEVEL III Diagnosis: Acute recurrent maxillary sinusitis[ICD10: J01.01] Diagnosis: Cough[ICD10: R05] Diagnosis: Allergic rhinitis due to pollen[ICD10: J30.1] Shahida Goldman MD, [facility] CPT-4: 52125 12/07/2015 ([id number]) 22764 EST. PATIENT, LEVEL IV Diagnosis: Essential (primary) hypertension[ICD10: I10] Diagnosis: Acute recurrent maxillary sinusitis[ICD10: J01.01] Diagnosis: Generalized anxiety disorder[ICD10: F41.1] Diagnosis: Cervicalgia[ICD10: M54.2] Diagnosis: Generalized intra-abdominal and pelvic swelling, mass and lump[ICD10: R19.07] Melba Goldman MD, [facility] CPT-4: 00691 11/24/2015 06372 EST. PATIENT, LEVEL III Diagnosis: Other migraine, intractable, without status migrainosus[ICD10: G43.819] Isabelle Goldman MD, [facility] CPT-4: 48204 08/27/2015 25388 EST. PATIENT, LEVEL III Diagnosis: Acute recurrent maxillary sinusitis[ICD10: J01.01] Diagnosis: Candidal stomatitis[ICD10: B37.0] Diagnosis: Acute laryngopharyngitis[ICD10: J06.0] Isabelle Goldman MD, [facility] CPT- 4: 51415 08/10/2015 27267 EST. PATIENT, LEVEL III Diagnosis: Superficial foreign body of left hand, initial encounter[ICD10: S60.552A] Melba Goldman MD, [facility] CPT-4: 69465 07/28/2015 ([id number]) 97048 EST. PATIENT, LEVEL III Diagnosis: Essential (primary) hypertension[ICD10: I10] Diagnosis: Tinea cruris[ICD10: B35.6] Diagnosis: Abnormal levels of other serum enzymes[ICD10: R74.8] Shahida Goldman MD, [facility] CPT-4: 28714 06/11/2015 ([id number]) 03191 EST. PATIENT, LEVEL IV Diagnosis: ESSENTIAL HYPERTENSION[ICD9: 401.9] Diagnosis: Hypothyroid[ICD9: 244.9] Diagnosis: ALLERGIC RHINITIS[ICD9: 477.9] Diagnosis: Anxiety[ICD9: 300.00] Diagnosis: Sleep apnea[ICD9: 780.57] Shahida Goldman MD, [facility] CPT-4: 98159 03/19/2015 ([id number]) 56472 EST. PATIENT, LEVEL III Diagnosis: ACUTE SINUSITIS[ICD9: 461.9] Celi Goldman MD, [facility] CPT-4: 36486 01/07/2015 ([id number]) 61242 EST. PATIENT, LEVEL III Diagnosis: Conjunctivitis[ICD9: 372.30] Shahida Goldman MD, [facility] CPT-4: 08558 09/23/2014 89734 EST. PATIENT, LEVEL II Diagnosis: Noninfected skin tear of leg[ICD9: 891.0] Shahida Goldman MD, [facility] CPT-4: 29440 08/05/2014 ([id number]) 76304 EST. PATIENT, LEVEL III Diagnosis: Chronic maxillary sinusitis[ICD9: 473.0] Shahida Goldman MD, [facility] CPT-4: 95224 06/23/2014 30049 EST. PATIENT, LEVEL II Diagnosis: Headache[ICD9: 784.0] Shahida Goldman MD, [facility] CPT-4: 50929 06/05/2014 ([id number]) 59645 EST. PATIENT, LEVEL III Diagnosis: Abrasion of right leg[ICD9: 916.0] Diagnosis: Headache[ICD9: 784.0] Diagnosis: ALLERGIC RHINITIS[ICD9: 477.9] Shahida Goldman MD, [facility] CPT-4: 72061 04/03/2014 70941 EST. PATIENT, LEVEL II Diagnosis: Tinea corporis[ICD9: 110.5] Diagnosis: Exposure to scabies[ICD9: V01.89] Shahida Goldman MD, [facility] CPT- 4: 70852 03/07/2014 ([id number]) 37505 EST. PATIENT, LEVEL III Diagnosis: ESSENTIAL HYPERTENSION[SNOMED: 48783448] Diagnosis: OSTEOARTH NOS-UNSPEC[ICD9: 715.90] Diagnosis: Lumbago[ICD9: 724.2] Diagnosis: Cervicalgia[ICD9: 723.1] Shahida Goldman MD [facility] CPT-4: 22413 11/21/2013 ([id number]) 45673 EST. PATIENT, LEVEL III Diagnosis: DEPRESSIVE DISORDER NEC[ICD9: 311] Diagnosis: Paronychia[ICD9: 681.9] Melba Goldman MD [facility] CPT-4: 60920 09/24/2013 ([id number]) 96319 EST. PATIENT, LEVEL III Diagnosis: Paronychia[ICD9: 681.9] Diagnosis: Cellulitis[ICD9: 682.9] Melba Goldman MD [facility] CPT-4: 41591 09/19/2013 ([id number]) 89108 EST. PATIENT, LEVEL III Diagnosis: Conjunctivitis[ICD9: 372.30] Diagnosis: Thrush[ICD9: 112.0] Shahida Goldman MD, [facility] CPT-4: 53194 08/05/2013 ([id number]) 76379 EST. PATIENT, LEVEL III Diagnosis: ACUTE MAXILLARY SINUSITIS[ICD9: 461.0] Diagnosis: COUGH[ICD9: 786.2] Diagnosis: Insomnia[ICD9: 780.52] Diagnosis: ESOPHAGEAL REFLUX[ICD9: 530.81] Melba Goldman MD [facility] CPT-4: 38214 07/10/2013 ([id number]) Miscellaneous no charge Diagnosis: ESSENTIAL HYPERTENSION[SNOMED: 12374900] Melba Goldman MD [facility] CPT-4: 95364 05/13/2013 ([id number]) 35631 EST. PATIENT, LEVEL IV Diagnosis: ESSENTIAL HYPERTENSION[SNOMED: 52468798] Diagnosis: HYPOTHYROIDISM[ICD9: 244.9] Diagnosis: OSTEOARTH NOS-UNSPEC[ICD9: 715.90] Melba Goldman MD [facility] CPT- 4: 89970 05/07/2013 ([id number]) 17225 EST. PATIENT, LEVEL IV Diagnosis: Osteoarthritis[ICD9: 715.90] Diagnosis: Knee pain, bilateral[ICD9: 719.46] Diagnosis: Hip pain[ICD9: 719.45] Melba Goldman MD [facility] CPT-4: 17797 12/03/2012 ([id number]) 57450 EST. PATIENT, LEVEL III Diagnosis: Thrush[ICD9: 112.0] Melba Goldman MD [facility] CPT-4: 29853 09/24/2012 ([id number]) 54523 EST. PATIENT, LEVEL IV Diagnosis: ESSENTIAL HYPERTENSION[SNOMED: 56291975] Diagnosis: Thrush[ICD9: 112.0] Diagnosis: Sleep apnea[ICD9: 780.57] Melba Goldman MD [facility] CPT-4: 10714 09/10/2012 ([id number]) 99221 EST. PATIENT, LEVEL IV Diagnosis: Esophageal reflux[ICD9: 530.81] Diagnosis: Hypothyroid[ICD9: 244.9] Diagnosis: JOINT PAIN-MULT JOINTS[ICD9: 719.49] Diagnosis: ALLERGIC RHINITIS[ICD9: 477.9] Melba Goldman MD [facility] CPT-4: 06757 08/08/2012 ([id number]) 63909 EST. PATIENT, LEVEL IV Diagnosis: Urinary frequency[ICD9: 788.41] Diagnosis: EDEMA[ICD9: 782.3] Diagnosis: HYPOTHYROIDISM[ICD9: 244.9] Diagnosis: Fatigue[ICD9: 780.79] Melba Goldman MD, [facility] CPT-4: 16691 02/15/2012 ([id number]) 54182 EST. PATIENT, LEVEL IV Diagnosis: Abdominal pain[ICD9: 789.00] Diagnosis: Fatigue[ICD9: 780.79] Diagnosis: Nausea[ICD9: 787.02] Melba Goldman MD [facility] CPT-4: 11521 11/10/2011 96346 EST. PATIENT, LEVEL IV Diagnosis: ESSENTIAL HYPERTENSION[SNOMED: 98635197] Diagnosis: DIARRHEA[ICD9: 787.91] Diagnosis: DEPRESSIVE DISORDER NEC[ICD9: 311] Diagnosis: Irritable bowel disease[ICD9: 564.1] Melba Goldman MD, [facility] CPT- 4: 82808 08/01/2011 17805 EST. PATIENT, LEVEL III Diagnosis: ACUTE SINUSITIS[ICD9: 461.9] Diagnosis: Cough[ICD9: 786.2] Shahida Goldman MD, [facility] CPT-4: 23943 07/14/2011 40222 EST. PATIENT, LEVEL IV Diagnosis: VACCIN FOR INFLUENZA[ICD9: V04.81] Diagnosis: ESSENTIAL HYPERTENSION[SNOMED: 25716333] Diagnosis: GENERALIZED ANXIETY DISEASE[ICD9: 300.02] Diagnosis: SLEEP DISTURBANCES[ICD9: 780.50] Shahida Goldman MD, [facility] CPT- 4: 90039 05/23/2011 51587 EST. PATIENT, LEVEL III Diagnosis: ACUTE SINUSITIS[ICD9: 461.9] Diagnosis: ALLERGIC RHINITIS[ICD9: 477.9] Diagnosis: Cough[ICD9: 786.2] Shahida Goldman MD, [facility] CPT-4: 15475 05/03/2011 47965 EST. PATIENT, LEVEL IV Diagnosis: ESSENTIAL HYPERTENSION[SNOMED: 98215084] Diagnosis: DEPRESSIVE DISORDER NEC[ICD9: 311] Diagnosis: Fatigue[ICD9: 780.79] Shahida Goldman MD, [facility] CPT-4: 90395 04/25/2011 Plan of Care Planned Activity Notes [...] and understands the consequences of over-medication. 07/10/2018 Patient Education: Patient Medication Summary Completed 07/10/2018 Patient Education: Back Pain Completed 07/10/2018 Visit Plan: Sinusitis - Pt has acute infection - pain in face, maxillary region, Pt informed to use decongestant, RX given to patient, sinus rinses also recommended. Call if symptoms do not show improvement. 05/28/2018 Appointment: Shahida Manzo WPtel: [address] [place], [place] [phone] (30 min) [facility] 05/28/2018 Patient Education: Patient Medication Summary Completed [...] Isabelle Orozco WPtel: [facility] (15 min) Moderate 02/07/2018 Patient Education: [...] fatigue 01/19/2018 Appointment: Shahida Manzo WPtel: [facility] [place] [address] (15 min) Moderate 01/19/2018 Patient Education: Patient [...] care surrogate. 11/23/2017 Appointment: Isabelle Orozco WPtel: [facility] - Annual Wellness Visit 11/23/2017 Patient Education: [...] show improvement. 09/12/2017 Appointment: Isabelle Orozco WPtel: [address] [place], [place] [phone] (15 min) Moderate 09/12/2017 Patient Education: Patient [...] spray. 07/25/2017 Appointment: Isabel[facility] Orozco [facility] [phone] [facility] (30 min) Complex 07/25/2017 Patient Education: [...] available 06/27/2017 Appointment: Shahida Manzo WPtel: [facility]9 [phone] (15 min) Moderate 06/27/2017 Patient Education: Patient [...] not improving. 05/08/2017 Appointment: Shahida Manzo WPtel: [phone] (15 min) Moderate 05/08/2017 Patient Education: [...] improvement. 03/14/2017 Appointment: Shahida Manzo WPtel: [facility]6 [phone] (15 min) Moderate 03/14/2017 Patient Education: Patient Medication Summary Completed 03/14/2017 Appointment: Shahida Manzo WPtel: [phone] [phone] (15 min) Moderate 02/21/2017 Visit Plan: [...] improving. 02/20/2017 Appointment: Isabelle Orozco WPtel: [facility]1 [facility] (30 min) Complex 02/20/2017 Patient Education: Patient [...] use 02/06/2017 Appointment: Melba Goldman WPtel: [phone] [facility] (15 min) Moderate [...] patient. 12/05/2016 Appointment: Melba Goldman WPtel: [facility] [facility] 12/05/2016 Patient Education: Patient Medication Summary Completed 12/05/2016 Visit Plan: Sinusitis - Pt has acute infection - pain in face, maxillary region, Pt informed to use decongestant, RX given to patient, sinus rinses also recommended. Call if symptoms do not show improvement. Dysuria- culture urine 11/28/2016 Appointment: Shahida Manzo [facility]el[facility] [phone] [phone] (15 min) Moderate 11/28/2016 Patient Education: [...] control. 11/07/2016 Appointment: Isabelle Orozco [facility]Ptel[facility] [phone] [facility] [facility] - Annual Wellness Visit 11/07/2016 [...] spray. 08/15/2016 Appointment: Isabelle Orozco [facility]Ptel[facility] [phone] [facility] (15 min) Moderate 08/15/2016 Patient Education: Patient Medication Summary Completed 08/15/2016 Patient Education: Obesity Completed 08/15/2016 Visit Plan: Sinusitis - Pt has acute infection - pain in face, maxillary region, Pt informed to use decongestant, RX given to patient, sinus rinses also recommended. Call if symptoms do not show improvement. Chronic back pain-refill hydrocodone for prn breakthrough pain use. 06/07/2016 Appointment: Sahhida Manzo WPtel: [phone] [phone] (10 min) Simple 06/07/2016 Patient Education: [...] today 03/14/2016 Appointment: Shahida Manzo [facility]Ptel[facility] [phone] [phone] (15 min) Moderate 03/14/2016 Patient Education: Patient Medication Summary Completed 03/14/2016 Care Plan: COMPLETE CBC AUTOMATED LOINC : 43233-1 Pending 03/14/2016 Visit Plan: Cellulitis - The patient was instructed in appropriate wound care. The patient was instructed to use the antibiotic ointment as per RX. The patient is to call for any change in symptoms, increase in size of the lesion, increase in pain. 02/22/2016 Appointment: Isabelle Orozco [facility]Ptel[facility] [phone] [facility] (15 min) Moderate 02/22/2016 Patient Education: [...] pt to follow up with specialist [place] [facility] [place] - she needs to pursue treatment. Anxietly - medications unchanged. colonoscopy with dr. dai 11/24/2015 Appointment: Melba Goldman [facility]Ptel: [phone] [facility] (30 min) Complex 11/24/2015 Patient Education: Patient Medication Summary Completed 11/24/2015 Patient Education: Obesity Completed 11/24/2015 Patient Education: Hypertension Completed 11/24/2015 Patient Education: .Cervicalgia Neck Pain Completed 11/24/2015 Care Plan: Referral Order SNOMED-CT : [id number] Ordered 11/24/2015 Visit Plan: Acute Migraine - [...] to monitor 06/11/2015 Appointment: Shahida Manzo WPtel: [phone] (15 min) Moderate 06/11/2015 Patient Education: [...] OFFICE Sleep apnea-patient needs new CPAP-will contact [facility] patient Pt reports that she uses her [...] OFFICE Sleep apnea-patient needs new CPAP-will contact [facility] Pt reports that she uses [...] OFFICE Sleep apnea-patient needs new CPAP-will contact [facility] patient 03/19/2015 Appointment: (15 min) Moderate 03/19/2015 [...] areas dry Exposure to scabies-RX sent to [facility]. 03/07/2014 Appointment: Melba Goldman WPtel: [phone] [facility] [place] rash 03/07/2014 Patient Education: Patient [...] change in blood pressure readings at home. Kogirtn-iqjucluaydl-wawvwdpy duragesic patch-appt with Dr Ortiz for pain management 11/21/2013 Appointment: Shahida Manzo WPtel: [facility]6 [phone] Follow up 11/21/2013 Patient Education: Patient Medication Summary Completed 11/21/2013 Patient Education: Hypertension Completed 11/21/2013 Patient Education: .Cervicalgia Neck Pain Completed 11/21/2013 Appointment: Melba Goldman WPtel: [facility]5 [facility] Other 11/19/2013 Appointment: Melba Goldman WPtel: [address] [place], [place] [phone] Follow up 11/06/2013 Appointment: Melba Goldman WPtel: [facility] Lab Draw 10/15/2013 Patient Education: Patient Medication [...] Shahida Manzo WPtel: [facility]5 [phone] [place] [address] Other 09/24/2013 Patient Education: Patient Medication Summary Completed 09/24/2013 Visit Plan: Paronychia/Cellulitis - continue with oral antibiotics as previously directed, return to clinic as previously directed, call for acute change in symptoms, worsening redness, warmth, discharge. 09/19/2013 Appointment: Melba Goldman WPtel: [facility]5 [facility] Other 09/19/2013 Patient Education: Patient Medication Summary Completed 09/19/2013 Visit Plan: Conjunctivitis - rx for eye drops/lube sent electronically to the patient's pharmacy. The patient has been instructed to cleanse affected eye with warm washcloth, then place medication into affected eye four times daily. Thrush-refill nystatin-call if symptoms do not resolve 08/05/2013 Appointment: Shahida Manzo WPtel: [facility]5 [phone] Sick 08/05/2013 Patient Education: Patient Medication Summary [...] do not show improvement. 06/03/2013 Appointment: Mel[facility] Glodman [facility]el: [phone] Follow up 06/03/2013 Patient Education: Patient Medication Summary Completed 06/03/2013 Patient Education: Hypertension Completed 06/03/2013 Appointment: Melba Goldman WPtel: [facility] [place] Nurse Visit 05/13/2013 Patient [...] control. 05/07/2013 Appointment: Melba Goldman WPtel: [facility]5 [facility] Follow up 05/07/2013 Patient Education: Patient Medication Summary Completed 05/07/2013 Patient Education: Hypertension Completed 05/07/2013 Patient Education: Patient Medication Summary Completed 04/30/2013 Patient Education: Hypertension Completed 04/30/2013 Visit Plan: Arthritis- occasionally uncontrolled symptoms- recommend pt to take antiinflammatory as directed for pain control. Use tylenol for break through pain symptoms. 12/03/2012 Appointment: Melba Goldman WPtel: [phone] [facility] Follow up 12/03/2012 Patient Education: Patient Medication [...] not resolve 09/24/2012 Appointment: Shahida Manzo WPtel: [facility]5 [phone] [facility] 09/24/2012 Patient Education: Patient Medication [...] with diflucan 09/10/2012 Appointment: Melba Goldman WPtel: [facility]5 [facility] Follow up 09/10/2012 Patient Education: Patient Medication [...] symptoms. 08/08/2012 App[facility]ment: [phone] Follow up 08/08/2012 Patient Education: Patient Medication Summary Completed 08/08/2012 Patient Education: Patient Medication Summary Completed 08/07/2012 Patient Education: Hypertension Completed 08/07/2012 Appointment: Melba Goldman [facility]el[phone] [place] Lab Draw 02/16/2012 Patient [...] of her fatigue. Needs labs. 02/15/2012 Appointment: HighlandLogan andersony WPtel: [phone] [facility] Other 02/15/2012 Patient Education: Patient Medication Summary Completed 02/15/2012 Visit Plan: Abdominal pain - ultrasound tomorrow AM nothing to eat before the ultrasound from 11pm tonight bland diet. Nausea - worse with fatty foods, recommended low fat/bland diet, call if symptoms worsening. 11/10/2011 Appointment: HighlandMelba WPtel: [facility]5 [facility] Other 11/10/2011 Patient [...] stools. 08/01/2011 Appointment: Melba Goldman WPtel: [phone] [facility] Other 08/01/2011 Patient Education: Patient Medication Summary Completed 08/01/2011 Patient Education: High Blood Pressure: Essential Hypertension Completed 08/01/2011 Visit Plan: Sinusitis - Pt has acute infection - pain in face, maxillary region, Pt informed to use decongestant, RX given to patient, sinus rinses also recommended. Call if symptoms do not show improvement. Cough- tessalon pearles 07/14/2011 Appointment: Shahida Manzo WPtel: [address] [place] [address] Other 07/14/2011 Patient Education: Patient Medication Summary [...] the office. 05/23/2011 Appointment: Shahida Manzo WPtel: [address] [place] [address] Other 05/23/2011 Patient Education: Patient Medication Summary [...] cough med 05/03/2011 Appointment: Shahida Manzo WPtel: [facility]1 [phone] [place] Other 05/03/2011 Patient Education: Patient Medication [...] nurse practicioner. 04/25/2011 Appointment: Shah[phone] Other 04/25/2011 Patient Education: Patient Medication [...] OFFICE Sleep apnea-patient needs new CPAP-will contact [facility] patient Pt reports that she uses her [...] OFFICE Sleep apnea-patient needs new CPAP-will contact [facility] patient Pt reports that she uses [...] OFFICE Sleep apnea-patient needs new CPAP-will contact [facility] patient . Sinusitis - Pt has acute [...] pustular drainage, or any other acute concerns. trintellix - 10mg one pill daily in [...] been appropriately prescribed for this patient. . Medicare Exam - today we discussed [...] areas dry Exposure to scabies-RX sent to [facility]. rocephin/kenalog . Sinusitis - Pt has [...] change in blood pressure readings at home. Gsprifx-vrpyhanykvs-bxljmduf duragesic patch-appt with Dr Ortiz for pain [...] neck-let us know when you are available Rocephin and Kenalog . Arthritis- occasionally uncontrolled [...] cough syrup called in to pharmacy. . Sinusitis - Pt has acute infection [...] do not show improvement. Dysuria-culture urine . Hypertension - well controlled - continue [...] fitted lindsay. Thrush- treating with diflucan . Paronychia/Cellulitis - continue with oral antibiotics as previously directed, return to clinic as previously directed, call for acute change in symptoms, worsening redness, warmth, discharge. . Hypertension - uncontrolled - the patient's [...] Thrush-refill nystatin-call if symptoms do not resolve TRAZODONE REPLACES THE AMBIEN - START WITH [...] PREDNISONE FOR SYMPTOMS SINUSITIS/DYSPNEA. . Hypertension - fairlywell controlled - due [...] can imrpove her symptoms. . Hypertension - fairlywell controlled - due [...] formulate the plan with the nurse practicioner. Continue to monitor blood pressure and bring [...] symptoms do not show improvement. Cough-tessalon pearles Do not start the diflucan until you [...] make appt if symptoms do not resolve increase bystolic to 15mg daily.. Hypertension - [...] based on previous levels of control. . Arthritis- occasionally uncontrolled symptoms- recommend pt to take antiinflammatory as directed for pain control. Use tylenol for break through pain symptoms.
--- OUTSIDE RECORDS SUMMARY | 2019-03-08 18:10 | XMS REPORT | CCD ---
Author Author [facility] Address [address] [place] [address] Phone Care Team Providers Care Paper Box Maker Name Role Phone PP Unavailable CCM Unavailable Summary Purpose Interface Exchange Insurance Providers Payer name Policy type / Coverage type Covered libertarian ID Effective Begin Date Effective End Date [employer] Medicare Part B [id number] Unknown Family history Son Diagnosis Age At Onset Crohn's disease Unknown Brother Diagnosis Age At Onset Cardiovascular disease Unknown Mother Diagnosis Age At Onset Hypertension Unknown Father Diagnosis Age At Onset Cardiovascular disease Unknown Social History Social History Element Codes Description Effective Dates Marital status Unknown 04/22/2011 Number of children Unknown 3 1 son -Crohns 04/22/[address]: [id number] Nonsmoker 04/22/2011 Allergies, Adverse Reactions, Alerts Substance Reaction Codes Entered Date Inactivated Date Status * NO KNOWN FOOD ALLERGIES Unknown 05/19/2011 No Inactive Date Active * NO KNOWN DRUG ALLERGIES Unknown 04/22/2011 No Inactive Date Active Past Medical History Illness Codes Condition Status Onset Date Resolved Date Acute recurrent maxillary sinusitis ICD-9: 461.0 ICD-10: J01.01 Active 06/06/2016 Unknown Laceration without foreign body, right lower [...] ICD-9: 891.0 ICD-10: S81.811A Active 02/07/2018 Unknown Laceration without foreign body, left lower leg, initial encounter ICD-9: 891.0 ICD-10: S81.812A Active 02/07/2018 Unknown Low back pain ICD-9: 724.2 ICD-10: M54.5 Active 06/06/2016 Unknown Obstructive sleep apnea (adult) (pediatric) ICD-9: [...] ICD-9: 789.07 ICD-10: R10.84 Active 09/12/2017 Unknown Other acute sinusitis ICD- 9: 461.8 [...] sinusitis ICD-9: 461.0 ICD-10: J01.01 06/06/2016 Active Laceration without foreign body, right lower leg, subsequent encounter ICD-9: V58.89 ICD-10: S81.811D 02/08/2018 Active Laceration without foreign body, left lower leg, subsequent encounter ICD-9: V58.89 ICD-10: S81.812D 02/08/2018 Active Cellulitis of left lower limb ICD-9: 682.6 ICD-10: L03.116 02/07/2018 Active Cellulitis of right lower limb ICD-9: 682.6 ICD-10: L03.115 02/07/2018 Active Laceration without foreign body, right lower leg, initial encounter ICD-9: 891.0 ICD-10: S81.811A 02/07/2018 Active Laceration without foreign body, left lower leg, initial encounter ICD-9: 891.0 ICD-10: S81.812A 02/07/2018 Active Low back pain ICD-9: 724.2 ICD-10: M54.5 06/06/2016 Active Obstructive sleep apnea (adult) (pediatric) ICD-9: [...] pain ICD-9: 789.07 ICD-10: R10.84 09/12/2017 Active Other acute sinusitis ICD- 9: 461.8 [...] Start Date Stop Date Status Fill Instructions Phenergan with Codeine Syrup RxNorm: 5-10 Milliliter(s) PO Q6 PRN 06/28/2018 No Stop Date Active prednisone 20 mg tablet RxNorm: 638583 2 Tablet(s) PO daily 05/31/2018 06/04/2018 Inactive prednisone 20 mg tablet RxNorm: 827153 2 Tablet(s) PO daily 05/31/2018 05/30/2018 Inactive ceftriaxone 500 mg solution for injection RxNorm: 5382701 Inj 05/28/2018 05/28/2018 Inactive doxycycline hyclate 100 mg tablet RxNorm: 8051130 1 Tablet(s) PO BID 05/28/2018 06/06/2018 Inactive Kenalog 40 mg/mL suspension for injection RxNorm: 3321769 Milliliter(s) Inj 05/28/2018 05/28/2018 Inactive hydrocodone 10 mg-acetaminophen 325 mg tablet RxNorm: 570093 Tablet(s) PO TAKE ONE TO TWO TABLETS BY MOUTH EVERY 6 HOURS NEEDED FOR PAIN 05/09/2018 05/23/2018 Inactive alprazolam 0.25 mg tablet RxNorm: 561703 1 Tablet(s) PO daily as needed 04/25/2018 07/23/2018 Active Bystolic 10 mg tablet RxNorm: 997007 TAKE ONE TABLET BY MOUTH DAILY 04/16/2018 09/12/2018 Active hydrocodone 10 mg-acetaminophen 325 mg tablet RxNorm: 035661 Tablet(s) PO TAKE ONE TO TWO TABLETS BY MOUTH EVERY 6 HOURS NEEDED FOR PAIN 03/06/2018 03/20/2018 Inactive trazodone 50 mg tablet RxNorm: 891979 TAKE ONE AND ONE-HALF (1 1/2) TABLET BY MOUTH AT BEDTIME. MAY INCREASE TO 2 TABLETS AT BEDTIME NEEDED 02/23/2018 06/12/2018 Inactive mupirocin 2 % topical ointment RxNorm: 432795 1 TOP BID 02/09/2018 05/27/2018 Inactive Zofran 4 mg tablet RxNorm: 316593 1 Tablet(s) PO TID as needed 02/08/2018 No Stop Date Active Keflex 500 mg capsule RxNorm: 126122 1 Capsule(s) PO TID 02/07/2018 02/13/2018 Inactive alprazolam 0.25 mg tablet RxNorm: 378592 1 Tablet(s) PO daily as needed 01/24/2018 04/22/2018 Inactive piroxicam 20 mg capsule RxNorm: 761580 1 Capsule(s) PO daily 01/19/2018 07/17/2018 Active D/C ORDER FOR HCTZ hydrocodone 10 mg-acetaminophen 325 mg tablet RxNorm: 428363 Tablet(s) PO TAKE ONE TO TWO TABLETS BY MOUTH EVERY 6 HOURS NEEDED FOR PAIN 01/19/2018 02/02/2018 Inactive hydrochlorothiazide 25 mg tablet RxNorm: 735105 Tablet(s) TAKE ONE TABLET BY MOUTH DAILY 01/19/2018 01/19/2018 Inactive Kenalog 40 mg/mL suspension for injection RxNorm: 1341613 1 Milliliter(s) Inj 01/19/2018 01/19/2018 Inactive ceftriaxone 500 mg solution for injection RxNorm: 7598336 500 Milligram(s) Inj 01/19/2018 01/19/2018 Inactive Nexium 40 mg capsule,delayed release RxNorm: 553612 TAKE ONE CAPSULE BY MOUTH TWICE A DAY 01/18/2018 04/17/2018 Inactive Nexium 40 mg capsule,delayed release RxNorm: 326004 TAKE ONE CAPSULE BY MOUTH TWICE A DAY 01/15/2018 04/14/2018 Inactive ciprofloxacin 0.3 % eye drops RxNorm: 222541 2 Drop(s) ophthalmic (eye) Q2H while awake x 2 days, then Q4H x 5 days 11/23/2017 05/27/2018 Inactive Keflex 500 mg capsule RxNorm: 613500 1 Capsule(s) PO TID 11/23/2017 11/29/2017 Inactive hydrocodone 10 mg-acetaminophen 325 mg tablet RxNorm: 108757 Tablet(s) PO TAKE ONE TO TWO TABLETS BY MOUTH EVERY 6 HOURS NEEDED FOR PAIN 10/30/2017 11/13/2017 Inactive Augmentin 500 mg-125 mg tablet RxNorm: 155212 1 Tablet(s) PO TID 10/27/2017 11/05/2017 Inactive alprazolam 0.25 mg tablet RxNorm: 032361 1 Tablet(s) PO daily as needed 10/26/2017 04/24/2018 Inactive trazodone 50 mg tablet RxNorm: 286358 TAKE ONE AND ONE-HALF (1 1/2) TABLET BY MOUTH AT BEDTIME. MAY INCREASE TO 2 TABLETS AT BEDTIME NEEDED 09/25/2017 02/03/2018 Inactive Lexapro 20 mg tablet RxNorm: 651954 TAKE ONE AND ONE-HALF TABLET BY MOUTH DAILY 09/15/2017 09/09/2018 Active Flagyl 500 mg tablet RxNorm: 154367 1 Tablet(s) PO TID 09/12/2017 09/21/2017 Inactive promethazine 25 mg tablet RxNorm: 389756 1 Tablet(s) PO TID as needed nausea and vomitting THIS WILL MAKE YOU SLEEPY 09/12/2017 11/08/2017 Inactive Keflex 500 mg capsule RxNorm: 827400 1 Capsule(s) PO QID 08/25/2017 08/31/2017 Inactive [SAVINGS FOR UNINSURED PATIENTS -- BIN:[id number], PCN: [id number], Group: [id number], ID# [id number], Process claim through [employer], for questions: . THIS IS NOT INSURANCE.] alprazolam 0.25 mg tablet RxNorm: 696713 1 Tablet(s) PO daily as needed 07/31/2017 04/24/2018 Inactive prednisone 20 mg tablet RxNorm: 747181 2 Tablet(s) PO daily 07/25/2017 07/29/2017 Inactive Augmentin 500 mg-125 mg tablet RxNorm: 775442 1 Tablet(s) PO TID 07/25/2017 08/03/2017 Inactive trazodone 50 mg tablet RxNorm: 236177 TAKE ONE AND ONE-HALF (1 1/2) TABLET BY MOUTH AT BEDTIME. MAY INCREASE TO 2 TABLETS AT BEDTIME NEEDED 06/30/2017 09/03/2017 Inactive Bystolic 10 mg tablet RxNorm: 160597 TAKE ONE TABLET BY MOUTH DAILY 06/30/2017 2017 Inactive hydrochlorothiazide 25 mg tablet RxNorm: 344402 TAKE ONE TABLET BY MOUTH DAILY 06/30/2017 01/18/2018 Inactive Flagyl 500 mg tablet RxNorm: 776900 1 Tablet(s) PO TID 06/27/2017 07/03/2017 Inactive Phenergan with Codeine Syrup RxNorm: 5-10 Milliliter(s) PO Q6 PRN 06/27/2017 11/15/2017 Inactive Levaquin 500 mg tablet RxNorm: 945458 1 Tablet(s) PO daily 06/27/2017 07/03/2017 Inactive Kenalog 40 mg/mL suspension for injection RxNorm: 2991139 1 Milliliter(s) Inj 06/27/2017 06/27/2017 Inactive Nexium 40 mg capsule,delayed release RxNorm: 528443 1 Capsule(s) PO BID TAKE ONE CAPSULE BY MOUTH BID 05/22/2017 09/18/2017 Inactive Nexium 40 mg capsule,delayed release RxNorm: 436031 1 Capsule(s) PO BID TAKE ONE CAPSULE BY MOUTH BID 05/22/2017 05/21/2017 Inactive hydrocodone 10 mg-acetaminophen 325 mg tablet RxNorm: 162941 Tablet(s) PO TAKE ONE TO TWO TABLETS BY MOUTH EVERY 6 HOURS NEEDED FOR PAIN 05/17/2017 06/15/2017 Inactive Nexium 40 mg capsule,delayed release RxNorm: 624629 Capsule(s) TAKE ONE CAPSULE BY MOUTH BID 05/17/2017 05/21/2017 Inactive alprazolam 0.25 mg tablet RxNorm: 970126 1 Tablet(s) PO daily as needed 05/03/2017 07/01/2017 Inactive Levaquin 500 mg tablet RxNorm: 279598 1 Tablet(s) PO daily 04/20/2017 04/26/2017 Inactive clotrimazole 1 % topical cream RxNorm: 193976 1 Application TOP BID 04/20/2017 11/07/2017 Inactive Kenalog 40 mg/mL suspension for injection RxNorm: 9954266 Milliliter(s) Inj 04/20/2017 04/20/2017 Inactive nystatin 100,000 unit/gram topical powder RxNorm: 636905 1 Gram(s) APPLY TOPICALLY TWO TIMES A DAY 04/10/2017 07/08/2017 Inactive trazodone 50 mg tablet RxNorm: 206791 TAKE ONE AND ONE-HALF (1 1/2) TABLET BY MOUTH AT BEDTIME. MAY INCREASE TO 2 TABLETS AT BEDTIME NEEDED 03/28/2017 06/23/2017 Inactive Augmentin 875 mg-125 mg tablet RxNorm: 598644 1 Tablet(s) PO BID 03/14/2017 03/20/2017 Inactive Kenalog 40 mg/mL suspension for injection RxNorm: 8148623 1 Milliliter(s) Inj 03/14/2017 03/14/2017 Inactive Lexapro 20 mg tablet RxNorm: 589838 1.5 Tablet(s) PO daily 03/08/2017 03/07/2017 Inactive Lexapro 20 mg tablet RxNorm: 840334 1.5 Tablet(s) PO daily 03/08/2017 07/05/2017 Inactive alprazolam 0.25 mg tablet RxNorm: 900456 1 Tablet(s) PO daily as needed 02/23/2017 04/23/2017 Inactive (Response to an electronic controlled substance refill request - RxReferenceNumber: [id number]) Flagyl 500 mg tablet RxNorm: 577492 1 Tablet(s) PO TID 02/20/2017 03/01/2017 Inactive promethazine 25 mg tablet RxNorm: 117960 1 Tablet(s) PO TID as needed nausea 02/20/2017 03/01/2017 Inactive Cipro 500 mg tablet RxNorm: 969127 1 Tablet(s) PO BID 02/20/2017 03/01/2017 Inactive Flagyl 500 mg tablet RxNorm: 776720 1 Tablet(s) PO TID 02/09/2017 02/15/2017 Inactive Trintellix 10 mg tablet RxNorm: 1152520 1 Tablet(s) PO QAM 02/06/2017 03/07/2017 Inactive Efudex 5 % topical cream RxNorm: 845548 1 Application TOP BID use on skin spot on nose 02/06/2017 02/15/2017 Inactive Bystolic 10 mg tablet RxNorm: 905079 TAKE ONE TABLET BY MOUTH DAILY 02/03/2017 06/02/2017 Inactive Imitrex 50 mg tablet RxNorm: 466219 TAKE ONE TABLET BY MOUTH EVERY 8 HOURS NEEDED MAY REPEAT IN 1 HOUR OF INITIAL DOSE. DISCONTINUE FIORICET 12/22/2016 02/19/2017 Inactive Nexium 40 mg capsule,delayed release RxNorm: 113771 TAKE ONE CAPSULE BY MOUTH EVERY DAY 12/21/2016 05/16/2017 Inactive Lexapro 20 mg tablet RxNorm: 797376 Tablet(s) TAKE ONE TABLET BY MOUTH DAILY 12/05/2016 02/05/2017 Inactive Augmentin 875 mg-125 mg tablet RxNorm: 514845 1 Tablet(s) PO BID 11/28/2016 12/04/2016 Inactive ceftriaxone 500 mg solution for injection RxNorm: 0814010 1 Milliliter(s) Inj 11/28/2016 11/28/2016 Inactive hydrocodone 10 mg-acetaminophen 325 mg tablet RxNorm: 607990 Tablet(s) PO TAKE ONE TO TWO TABLETS BY MOUTH EVERY 6 HOURS NEEDED FOR PAIN 11/28/2016 05/16/2017 Inactive (Appended: Controlled substance eRx refill - RxReferenceNumber: [id number]) prednisone 20 mg tablet RxNorm: 299883 2 Tablet(s) PO daily 11/28/2016 12/02/2016 Inactive Synthroid 100 mcg tablet RxNorm: 597008 1 Tablet(s) PO daily 11/21/2016 05/19/2017 Inactive Brand name only! trazodone 50 mg tablet RxNorm: 022853 TAKE 1 AND 1/2 TABLETS EVERY NIGHT AT BEDTIME , MAY INCREASE TO 2 TABLETS AT BEDTIME NEEDED 11/21/2016 02/16/2017 Inactive trazodone 50 mg tablet RxNorm: 582590 Tablet(s) TAKE 1 AND 1/2 TABLETS EVERY NIGHT AT BEDTIME , MAY INCREASE TO 2 TABLETS AT BEDTIME NEEDED 11/21/2016 11/20/2016 Inactive Synthroid 100 mcg tablet RxNorm: 394071 1 Tablet(s) PO daily TAKE ONE TABLET BY MOUTH DAILY 11/08/2016 11/20/2016 Inactive ceftriaxone 500 mg solution for injection RxNorm: 8613082 Inj 11/07/2016 11/07/2016 Inactive Kenalog 40 mg/mL suspension for injection RxNorm: 8192011 Milliliter(s) Inj 11/07/2016 11/07/2016 Inactive Xanax 0.25 mg tablet RxNorm: 589467 1 Tablet(s) PO daily as needed 10/31/2016 05/02/2017 Inactive alprazolam 0.25 mg tablet RxNorm: 414483 1 Tablet(s) PO daily as needed 10/21/2016 12/18/2016 Inactive (Response to an electronic controlled substance refill request - RxReferenceNumber: [id number]) hydrochlorothiazide 25 mg tablet RxNorm: 894538 TAKE ONE TABLET BY MOUTH DAILY 10/11/2016 04/08/2017 Inactive Xanax 0.25 mg tablet RxNorm: 993520 1 Tablet(s) PO daily as needed 08/23/2016 10/19/2016 Inactive Flonase Allergy Relief 50 mcg/actuation nasal spray,suspension RxNorm: 6737074 1 [place] NASAL daily 08/15/2016 No Stop Date Active amoxicillin 500 mg capsule RxNorm: 415125 1 Capsule(s) PO TID 08/15/2016 08/24/2016 Inactive Bystolic 10 mg tablet RxNorm: 713765 TAKE ONE TABLET BY MOUTH DAILY 08/01/2016 12/28/2016 Inactive trazodone 50 mg tablet RxNorm: 042478 TAKE 1 AND 1/2 TABLETS EVERY NIGHT AT BEDTIME , MAY INCREASE TO 2 TABLETS AT BEDTIME NEEDED 07/25/2016 11/11/2016 Inactive alprazolam 0.25 mg tablet RxNorm: 021431 1 Tablet(s) PO daily as needed 07/25/2016 08/22/2016 Inactive (Response to an electronic controlled substance refill request - RxReferenceNumber: [id number]) Imitrex 50 mg tablet RxNorm: 622407 1 Tablet(s) PO Q8 as needed may repeat x1 dose in 1 hour of inital dose. 07/13/2016 No Stop Date Active Lexapro 20 mg tablet RxNorm: 873461 TAKE 1/2 TABLET BY MOUTH DAILY FOR 10 DAYS, THEN TAKE ONE TABLET BY MOUTH DAILY 06/27/2016 11/23/2016 Inactive Synthroid 100 mcg tablet RxNorm: 299139 TAKE ONE TABLET BY MOUTH DAILY 06/20/2016 11/07/2016 Inactive Augmentin 500 mg-125 mg tablet RxNorm: 015597 1 Tablet(s) PO TID 06/07/2016 06/13/2016 Inactive hydrocodone 10 mg-acetaminophen 325 mg tablet RxNorm: 528462 Tablet(s) PO TAKE ONE TO TWO TABLETS BY MOUTH EVERY 6 HOURS NEEDED FOR PAIN 06/07/2016 11/27/2016 Inactive (Appended: Controlled substance eRx refill - RxReferenceNumber: [id number]) hydrochlorothiazide 25 mg tablet RxNorm: 428136 TAKE ONE TABLET BY MOUTH DAILY 03/14/2016 09/09/2016 Inactive Edarbi 40 mg tablet RxNorm: 1185266 1 Tablet(s) PO daily 03/14/2016 06/06/2016 Inactive trazodone 50 mg tablet RxNorm: 258293 Tablet(s) TAKE 1 AND 1/2 TABLET AT BEDTIME. MAY INCREASE TO 2 TABLETS IF NECESSARY 02/25/2016 07/05/2016 Inactive Imitrex 50 mg tablet RxNorm: 929607 1 Tablet(s) PO Q8 as needed may repeat x1 dose in 1 hour of inital dose. 02/25/2016 07/12/2016 Inactive dc fioricet Xanax 0.25 mg tablet RxNorm: 531195 1 Tablet(s) PO daily as needed 02/24/2016 07/21/2016 Inactive mupirocin 2 % topical ointment RxNorm: 728413 1 TOP BID 02/22/2016 11/08/2017 Inactive Bactrim DS 800 mg-160 mg tablet RxNorm: 881256 1 Tablet(s) PO BID 02/22/2016 03/02/2016 Inactive Fioricet 50 mg-325 mg-40 mg tablet RxNorm: 982199 Tablet(s) TAKE ONE TABLET BY MOUTH EVERY 4 HOURS NEEDED FOR headache 02/12/2016 02/24/2016 Inactive (Response to an electronic controlled substance refill request - RxReferenceNumber: [id number]) Fioricet 50 mg-325 mg-40 mg tablet RxNorm: 928601 Tablet(s) TAKE ONE TABLET BY MOUTH EVERY 4 HOURS NEEDED FOR headache 02/12/2016 02/11/2016 Inactive (Response to an electronic controlled substance refill request - RxReferenceNumber: [id number]) Nexium 40 mg capsule,delayed release RxNorm: 606880 TAKE ONE CAPSULE BY MOUTH EVERY DAY 02/01/2016 10/27/2016 Inactive Bystolic 10 mg tablet RxNorm: 466537 Tablet(s) TAKE ONE TABLET BY MOUTH DAILY 01/06/2016 07/03/2016 Inactive Xanax 0.25 mg tablet RxNorm: 672480 1 Tablet(s) PO daily as needed 12/28/2015 02/23/2016 Inactive Levaquin 500 mg tablet RxNorm: 924341 1 Tablet(s) PO daily take a probiotic daily 12/14/2015 02/11/2016 Inactive Levaquin 500 mg tablet RxNorm: 748034 1 Tablet(s) PO daily take a probiotic daily 12/14/2015 12/13/2015 Inactive prednisone 20 mg tablet RxNorm: 902241 1 Tablet(s) PO BID 12/07/2015 12/13/2015 Inactive Augmentin 875 mg-125 mg tablet RxNorm: 349563 1 Tablet(s) PO BID 12/07/2015 12/13/2015 Inactive ceftriaxone 500 mg solution for injection RxNorm: 3436954 Inj 12/07/2015 12/07/2015 Inactive Phenergan with Codeine Syrup RxNorm: 5-10 Milliliter(s) PO Q6 PRN 12/07/2015 06/26/2017 Inactive alprazolam 0.25 mg tablet RxNorm: 676576 1 Tablet(s) PO daily as needed 11/27/2015 12/25/2015 Inactive (Response to an electronic controlled substance refill request [id number]) trazodone 50 mg tablet RxNorm: 793664 TAKE 1 AND 1/2 TABLET AT BEDTIME FOR 2 WEEKS, MAY INCREASE TO 2 TABLETS IF NECESSARY AFTER THAT 11/26/2015 02/24/2016 Inactive ceftriaxone 500 mg solution for injection RxNorm: 7992005 Milliliter(s) Inj 11/24/2015 11/24/2015 Inactive prednisone 10 mg tablet RxNorm: 014796 3 Tablet(s) PO daily 11/24/2015 11/28/2015 Inactive cefdinir 300 mg capsule RxNorm: 911785 1 Capsule(s) PO BID 11/24/2015 11/30/2015 Inactive Kenalog 40 mg/mL suspension for injection RxNorm: 5887045 1 Milliliter(s) Inj 11/24/2015 11/24/2015 Inactive Lexapro 20 mg tablet RxNorm: 247609 TAKE 1/2 TABLET BY MOUTH DAILY FOR 10 DAYS, THEN TAKE ONE TABLET BY MOUTH DAILY 11/23/2015 05/20/2016 Inactive Lipitor 10 mg tablet RxNorm: 958743 Tablet(s) TAKE ONE TABLET BY MOUTH EVERY DAY 10/26/2015 11/06/2016 Inactive Norvasc 10 mg tablet RxNorm: 748556 Tablet(s) PO TAKE ONE TABLET BY MOUTH EVERY DAY 10/26/2015 01/18/2018 Inactive hydrochlorothiazide 25 mg tablet RxNorm: 831966 TAKE ONE TABLET BY MOUTH DAILY 10/20/2015 01/17/2016 Inactive promethazine 25 mg/mL injection solution RxNorm: 747454 Milliliter(s) Inj 08/27/2015 08/27/2015 Inactive ketorolac 60 mg/2 mL intramuscular solution RxNorm: 207506 Milliliter(s) IM 08/27/2015 08/27/2015 Inactive alprazolam 0.25 mg tablet RxNorm: 596597 1 Tablet(s) PO daily as needed 08/27/2015 10/25/2017 Inactive (Response to an electronic controlled substance refill request - [facility]: [id number]) Lexapro 20 mg tablet RxNorm: 778503 TAKE 1/2 TABLET BY MOUTH DAILY FOR 10 DAYS, THEN TAKE ONE TABLET BY MOUTH DAILY 08/13/2015 11/10/2015 Inactive Flonase 50 mcg/actuation nasal spray,suspension RxNorm: 859381 PLACE 1 SPRAY IN EACH NOSTRIL DAILY 08/13/2015 02/08/2016 Inactive Augmentin 500 mg-125 mg tablet RxNorm: 863155 1 Tablet(s) PO TID 08/10/2015 08/16/2015 Inactive Kenalog 40 mg/mL suspension for injection RxNorm: 4991720 Milliliter(s) Inj 08/10/2015 08/10/2015 Inactive ceftriaxone 500 mg solution for injection RxNorm: 2166771 Inj 08/10/2015 08/10/2015 Inactive nystatin 100,000 unit/mL oral suspension RxNorm: 793103 4 Milliliter(s) PO QID 08/10/2015 08/16/2015 Inactive trazodone 50 mg tablet RxNorm: 116822 TAKE 1 AND 1/2 TABLET AT BEDTIME FOR 2 WEEKS, MAY INCREASE TO 2 TABLETS IF NECESSARY AFTER THAT 07/31/2015 11/25/2015 Inactive ceftriaxone 500 mg solution for injection RxNorm: 3970720 1 Milliliter(s) Inj 07/28/2015 07/28/2015 Inactive Bactrim DS 800 mg-160 mg tablet RxNorm: 816956 1 Tablet(s) PO BID 07/28/2015 08/06/2015 Inactive Bactroban 2 % topical ointment RxNorm: 102065 1 Application TOP BID 07/28/2015 08/06/2015 Inactive Diflucan 150 mg tablet RxNorm: 012751 1 Tablet(s) PO daily 06/11/2015 06/17/2015 Inactive clotrimazole 1 % topical cream RxNorm: 510114 1 Application TOP BID 06/11/2015 07/10/2015 Inactive Bystolic 10 mg tablet RxNorm: 359186 TAKE ONE TABLET BY MOUTH DAILY 06/08/2015 12/04/2015 Inactive alprazolam 0.25 mg tablet RxNorm: 311415 1 Tablet(s) PO daily as needed 06/01/2015 08/25/2015 Inactive (Response to an electronic controlled substance refill request - RxReferenceNumber: [id number]) Fioricet 50 mg-325 mg-40 mg tablet RxNorm: 557549 Tablet(s) TAKE ONE TABLET BY MOUTH EVERY 4 HOURS NEEDED FOR headache 05/28/2015 06/08/2015 Inactive (Response to an electronic controlled substance refill request - RxReferenceNumber: [id number]) trazodone 50 mg tablet RxNorm: 201177 TAKE 1 AND 1/2 TABLET AT BEDTIME FOR 2 WEEKS, MAY INCREASE TO 2 TABLETS IF NECESSARY AFTER THAT 05/25/2015 08/22/2015 Inactive trazodone 50 mg tablet RxNorm: 895564 TAKE 1 AND 1/2 TABLET AT BEDTIME FOR 2 WEEKS, MAY INCREASE TO 2 TABLETS IF NECESSARY AFTER THAT 05/25/2015 05/24/2015 Inactive Synthroid 100 mcg tablet RxNorm: 337659 TAKE ONE TABLET BY MOUTH DAILY 04/23/2015 01/17/2016 Inactive Lipitor 10 mg tablet RxNorm: 952692 TAKE ONE TABLET BY MOUTH EVERY DAY 04/23/2015 10/25/2015 Inactive Kenalog 40 mg/mL suspension for injection RxNorm: 6920583 Milliliter(s) Inj 03/19/2015 03/19/2015 Inactive Lexapro 20 mg tablet RxNorm: 528623 1 Tablet(s) PO daily 03/19/2015 07/16/2015 Inactive 1/2 tab daily x 10 days then 1 tab daily hydrocodone 10 mg-acetaminophen 325 mg tablet RxNorm: 887200 Tablet(s) PO TAKE ONE TO TWO TABLETS BY MOUTH EVERY 6 HOURS NEEDED FOR PAIN 03/19/2015 06/06/2016 Inactive (Appended: Controlled substance eRx refill - RxReferenceNumber: [id number]) Carafate 1 gram tablet RxNorm: 681026 1 Tablet(s) PO AC & HS 03/19/2015 06/16/2015 Inactive dissolve in water and take as a slurry hydrochlorothiazide 25 mg tablet RxNorm: 006304 1 Tablet(s) PO daily 03/12/2015 09/07/2015 Inactive Nexium 40 mg capsule,delayed release RxNorm: 750899 TAKE ONE CAPSULE BY MOUTH EVERY DAY 02/26/2015 12/22/2015 Inactive Cymbalta 60 mg capsule,delayed release RxNorm: 823532 TAKE ONE CAPSULE BY MOUTH TWICE A DAY 02/23/2015 03/18/2015 Inactive alprazolam 0.25 mg tablet RxNorm: 614238 1 Tablet(s) PO daily as needed 02/11/2015 05/10/2015 Inactive (Response to an electronic controlled substance refill request - RxReferenceNumber: [id number]) trazodone 50 mg tablet RxNorm: 299631 TAKE 1 AND 1/2 TABLET AT BEDTIME FOR 2 WEEKS, MAY INCREASE TO 2 TABLETS IF NECESSARY AFTER THAT 01/27/2015 05/24/2015 Inactive Augmentin 500 mg-125 mg tablet RxNorm: 922681 1 Tablet(s) PO TID 01/07/2015 01/13/2015 Inactive gentamicin 0.3 % eye drops RxNorm: 918208 3 Drop(s) OPH QID 01/07/2015 01/13/2015 Inactive [AttnRPh: Saving apply/adjudicate RxGRP:[id number] RxBIN:[id number] RxPCN: ID#:[id number]] scopolamine 1.5 mg transdermal 72 hour patch RxNorm: 855927 1 Patch TD q72 hours 01/07/2015 11/23/2015 Inactive Synthroid 100 mcg tablet RxNorm: 162828 TAKE ONE TABLET BY MOUTH ONCE A DAY 01/06/2015 04/22/2015 Inactive nystatin 100,000 unit/gram topical powder RxNorm: 242873 APPLY TOPICALLY TWO TIMES A DAY 12/18/2014 03/17/2015 Inactive alprazolam 0.25 mg tablet RxNorm: 610132 TAKE ONE TABLET BY MOUTH DAILY NEEDED 10/30/2014 11/28/2014 Inactive (Response to an electronic controlled substance refill request - RxReferenceNumber: [id number]) alprazolam 0.25 mg tablet RxNorm: 680677 Tablet(s) TAKE ONE TABLET BY MOUTH DAILY 10/30/2014 10/29/2014 Inactive (Response to an electronic controlled substance refill request - RxReferenceNumber: [id number]) Lipitor 10 mg tablet RxNorm: 906376 TAKE ONE TABLET BY MOUTH EVERY DAY 10/30/2014 02/26/2015 Inactive alprazolam 0.25 mg tablet RxNorm: 822888 TAKE ONE TABLET BY MOUTH DAILY 10/07/2014 10/29/2014 Inactive (Response to an electronic controlled substance refill request - RxReferenceNumber: [id number]) alprazolam 0.25 mg tablet RxNorm: 823242 TAKE ONE TABLET BY MOUTH DAILY 10/06/2014 10/07/2014 Inactive (Response to an electronic controlled substance refill request - RxReferenceNumber: [id number]) alprazolam 0.25 mg tablet RxNorm: 305535 Tablet(s) TAKE ONE TABLET BY MOUTH EVERY DAY NEEDED 09/30/2014 10/06/2014 Inactive (Response to an electronic controlled substance refill request - RxReferenceNumber: [id number]) Fioricet 50 mg-325 mg-40 mg tablet RxNorm: 325560 Tablet(s) TAKE ONE TABLET BY MOUTH EVERY 4 HOURS NEEDED FOR headache 09/29/2014 10/12/2014 Inactive (Response to an electronic controlled substance refill request - RxReferenceNumber: [id number]) Bystolic 10 mg tablet RxNorm: 391433 1 Tablet(s) PO daily TAKE ONE TABLET BY MOUTH EVERY DAY 09/29/2014 04/26/2015 Inactive Bystolic 5 mg tablet RxNorm: 318388 TAKE 1 AND 1/2 TABLETS ONCE DAILY 09/24/2014 09/23/2014 Inactive Bystolic 5 mg tablet RxNorm: 046738 Tablet(s) TAKE 1 AND 1/2 TABLETS ONCE DAILY 09/24/2014 09/18/2015 Inactive gentamicin 0.3 % eye drops RxNorm: 100783 3 Drop(s) OPH QID 09/23/2014 09/29/2014 Inactive trazodone 50 mg tablet RxNorm: 880326 TAKE 1 AND 1/2 TABLET AT BEDTIME FOR 2 WEEKS, MAY INCREASE TO 2 TABLETS IF NECESSARY AFTER THAT 09/22/2014 01/26/2015 Inactive Fioricet 50 mg-325 mg-40 mg tablet RxNorm: 077788 TAKE ONE TABLET BY MOUTH EVERY 4 HOURS NEEDED FOR PAIN 09/17/2014 09/28/2014 Inactive (Response to an electronic controlled substance refill request - RxReferenceNumber: [id number]) Duragesic 50 mcg/hr transdermal patch RxNorm: 011654 1 TD q72 hours 08/07/2014 01/06/2015 Inactive [SAVINGS FOR UNINSURED PATIENTS -- BIN:[id number], PCN: ASPROD1, Group: [id number], ID# [id number], Process claim through MedImpact, for questions: . THIS IS NOT INSURANCE.] alprazolam 0.25 mg tablet RxNorm: 413508 TAKE ONE TABLET BY MOUTH EVERY DAY NEEDED 07/31/2014 08/29/2014 Inactive (Response to an electronic controlled substance refill request - RxReferenceNumber: [id number]) alprazolam 0.25 mg tablet RxNorm: 872529 1 Tablet(s) PO daily as needed TAKE ONE TABLET BY MOUTH EVERY DAY NEEDED 07/30/2014 08/01/2014 Inactive (Response to an electronic controlled substance refill request - RxReferenceNumber: [id number]) Diflucan 150 mg tablet RxNorm: 260355 1 Tablet(s) PO daily 06/25/2014 07/01/2014 Inactive [SAVINGS FOR UNINSURED PATIENTS -- BIN:816124, PCN: ASPROD1, Group: [id number], ID# [id number], Process claim through MedImpact, for questions: . THIS IS NOT INSURANCE.] Kenalog 40 mg/mL suspension for injection RxNorm: 6278104 Milliliter(s) Inj 06/23/2014 06/23/2014 Inactive [SAVINGS FOR UNINSURED PATIENTS -- BIN:913950, PCN: ASPROD1, Group: [id number], ID# [id number], Process claim through MedImpact, for questions: . THIS IS NOT INSURANCE.] ceftriaxone 500 mg solution for injection RxNorm: 996327 Inj 06/23/2014 06/23/2014 Inactive [SAVINGS FOR UNINSURED PATIENTS -- BIN:992141, PCN: ASPROD1, Group: [id number], ID# [id number], Process claim through MedImpact, for questions: . THIS IS NOT INSURANCE.] Levaquin 500 mg tablet RxNorm: 892539 1 Tablet(s) PO daily 06/23/2014 07/13/2014 Inactive [SAVINGS FOR UNINSURED PATIENTS -- BIN:934451, PCN: ASPROD1, Group: [id number], ID# [id number], Process claim through [employer], for questions: . THIS IS NOT INSURANCE.] Duragesic 50 mcg/hr transdermal patch RxNorm: 810356 1 TD q72 hours 06/05/2014 08/06/2014 Inactive [SAVINGS FOR UNINSURED PATIENTS -- BIN:428609, PCN: ASPROD1, Group: [id number], ID# [id number], Process claim through [employer], for questions: . THIS IS NOT INSURANCE.] alprazolam 0.25 mg tablet RxNorm: 786681 1 Tablet(s) PO daily as needed TAKE ONE TABLET BY MOUTH EVERY DAY NEEDED 06/02/2014 07/29/2014 Inactive (Response to an electronic controlled substance refill request - RxReferenceNumber: [id number]) nystatin 100,000 unit/gram topical powder RxNorm: 515408 APPLY TO AFFECTED AREA(S) TWO TIMES A DAY 05/01/2014 06/14/2014 Inactive hydrochlorothiazide 25 mg tablet RxNorm: 162420 TAKE ONE TABLET BY MOUTH EVERY DAY MUST CALL MD FOR APPOINTMENT 04/24/2014 10/20/2014 Inactive alprazolam 0.25 mg tablet RxNorm: 197338 Tablet(s) TAKE ONE TABLET BY MOUTH EVERY DAY NEEDED 04/16/2014 06/02/2014 Inactive (Response to an electronic controlled substance refill request - RxReferenceNumber: [id number]) alprazolam 0.25 mg tablet RxNorm: 401884 TAKE ONE TABLET BY MOUTH EVERY DAY NEEDED 04/16/2014 05/15/2014 Inactive (Response to an electronic controlled substance refill request - RxReferenceNumber: [id number]) alprazolam 0.25 mg tablet RxNorm: 321623 TAKE ONE TABLET BY MOUTH EVERY DAY NEEDED 04/16/2014 05/15/2014 Inactive (Response to an electronic controlled substance refill request - RxReferenceNumber: [id number]) alprazolam 0.25 mg tablet RxNorm: 586998 TAKE ONE TABLET BY MOUTH EVERY DAY NEEDED 04/14/2014 04/16/2014 Inactive (Response to an electronic controlled substance refill request - RxReferenceNumber: [id number]) Lipitor 10 mg tablet RxNorm: 441700 TAKE ONE TABLET BY MOUTH EVERY DAY 04/14/2014 09/10/2014 Inactive alprazolam 0.25 mg tablet RxNorm: 957526 TAKE ONE TABLET BY MOUTH EVERY DAY NEEDED 04/14/2014 04/14/2014 Inactive (Response to an electronic controlled substance refill request - RxReferenceNumber: [id number]) alprazolam 0.25 mg tablet RxNorm: 517770 TAKE ONE TABLET BY MOUTH EVERY DAY NEEDED 04/14/2014 04/15/2014 Inactive (Response to an electronic controlled substance refill request - RxReferenceNumber: [id number]) alprazolam 0.25 mg tablet RxNorm: 805598 TAKE ONE TABLET BY MOUTH EVERY DAY NEEDED 04/14/2014 04/14/2014 Inactive (Response to an electronic controlled substance refill request - RxReferenceNumber: [id number]) nystatin 100,000 unit/gram topical powder RxNorm: 341870 1 Application TOP BID 04/03/2014 07/01/2014 Inactive [SAVINGS FOR UNINSURED PATIENTS -- BIN:004878, PCN: ASPROD1, Group: [id number], ID# [id number], Process claim through MedImpact, for questions: . THIS IS NOT INSURANCE.] Keflex 500 mg capsule RxNorm: 624312 1 Capsule(s) PO QID 04/03/2014 04/09/2014 Inactive [SAVINGS FOR UNINSURED PATIENTS -- BIN:843630, PCN: ASPROD1, Group: [id number], ID# [id number], Process claim through MedImpact, for questions: . THIS IS NOT INSURANCE.] Synthroid 100 mcg tablet RxNorm: 122931 1 Tablet(s) PO daily TAKE ONE TABLET BY MOUTH EVERY DAY 04/01/2014 01/05/2015 Inactive [SAVINGS FOR UNINSURED PATIENTS -- BIN:320609, PCN: ASPROD1, Group: [id number], ID# [id number], Process claim through MedImpact, for questions: . THIS IS NOT INSURANCE.] Duragesic 50 mcg/hr transdermal patch RxNorm: 364390 1 TD q72 hours 03/24/2014 06/04/2014 Inactive [SAVINGS FOR UNINSURED PATIENTS -- BIN:633194, PCN: ASPROD1, Group: [id number], ID# [id number], Process claim through MedImpact, for questions: . THIS IS NOT INSURANCE.] trazodone 50 mg tablet RxNorm: 635261 TAKE 1 AND 1/2 TABLET AT BEDTIME FOR 2 WEEKS, MAY INCREASE TO 2 TABLETS IF NECESSARY AFTER THAT 03/18/2014 09/13/2014 Inactive nystatin 100,000 unit/gram topical powder RxNorm: 648646 1 Application TOP BID 03/07/2014 03/16/2014 Inactive [SAVINGS FOR UNINSURED PATIENTS -- BIN:124834, PCN: ASPROD1, Group: [id number], ID# [id number], Process claim through MedImpact, for questions: . THIS IS NOT INSURANCE.] permethrin 5 % topical cream RxNorm: 536141 1 Application TOP daily 03/07/2014 11/23/2015 Inactive apply head to toe-leave on overnight and wash off in the a.m. May repeat x 1 if needed Diflucan 150 mg tablet RxNorm: 042952 1 Tablet(s) PO daily 03/07/2014 03/09/2014 Inactive [SAVINGS FOR UNINSURED PATIENTS -- BIN:472756, PCN: ASPROD1, Group: [id number], ID# [id number], Process claim through MedImpact, for questions: . THIS IS NOT INSURANCE.] hydrochlorothiazide 25 mg tablet RxNorm: 108941 TAKE ONE TABLET BY MOUTH EVERY DAY MUST CALL MD FOR APPOINTMENT 03/06/2014 04/23/2014 Inactive Zithromax Z-Sergio 250 mg tablet RxNorm: 194694 Tablet(s) PO as directed 03/04/2014 11/23/2015 Inactive [SAVINGS FOR UNINSURED PATIENTS -- BIN:910147, PCN: ASPROD1, Group: [id number], ID# [id number], Process claim through MedITab Solutionsact, for questions: . THIS IS NOT INSURANCE.] Flonase 50 mcg/actuation nasal spray,suspension RxNorm: 947168 1 [place] NASAL daily 03/04/2014 07/01/2014 Inactive [SAVINGS FOR UNINSURED PATIENTS -- BIN:932281, PCN: ASPROD1, Group: [id number], ID# [id number], Process claim through Topix, for questions: . THIS IS NOT INSURANCE.] alprazolam 0.25 mg tablet RxNorm: 645043 1 Tablet(s) PO PRN TAKE ONE TABLET BY MOUTH EVERY DAY NEEDED 02/25/2014 04/14/2014 Inactive (Appended: Controlled substance eRx refill - RxReferenceNumber: [id number]) alprazolam 0.25 mg tablet RxNorm: 229414 TAKE ONE TABLET BY MOUTH EVERY DAY NEEDED 02/21/2014 03/22/2014 Inactive (Response to an electronic controlled substance refill request - RxReferenceNumber: [id number]) alprazolam 0.25 mg tablet RxNorm: 977922 TAKE ONE TABLET BY MOUTH EVERY DAY NEEDED 02/21/2014 03/22/2014 Inactive (Response to an electronic controlled substance refill request - RxReferenceNumber: [id number]) alprazolam 0.25 mg tablet RxNorm: 490373 TAKE ONE TABLET BY MOUTH EVERY DAY NEEDED 02/18/2014 03/19/2014 Inactive (Response to an electronic controlled substance refill request - RxReferenceNumber: [id number]) Cymbalta 60 mg capsule,delayed release RxNorm: 011887 TAKE ONE CAPSULE BY MOUTH TWICE A DAY 02/18/2014 01/13/2015 Inactive Nexium 40 mg capsule,delayed release RxNorm: 011989 TAKE ONE CAPSULE BY MOUTH EVERY DAY 02/18/2014 01/13/2015 Inactive Bactrim DS 800 mg-160 mg tablet RxNorm: 280743 1 Tablet(s) PO BID 02/13/2014 02/19/2014 Inactive probiotic while one antibiotic Bactrim DS 800 mg-160 mg tablet RxNorm: 053410 1 Tablet(s) PO BID 02/13/2014 02/12/2014 Inactive hydrocodone 10 mg-acetaminophen 325 mg tablet RxNorm: 619505 Tablet(s) PO TAKE ONE TO TWO TABLETS BY MOUTH EVERY 6 HOURS NEEDED FOR PAIN 02/06/2014 03/18/2015 Inactive (Appended: Controlled substance eRx refill - RxReferenceNumber: [id number]) Abilify 2 mg tablet RxNorm: 530561 Tablet(s) PO TAKE ONE TABLET BY MOUTH EVERY NIGHT AT BEDTIME 02/03/2014 03/19/2015 Inactive Duragesic 50 mcg/hr transdermal patch RxNorm: 311328 1 TD q72 hours 01/14/2014 03/23/2014 Inactive alprazolam 0.25 mg tablet RxNorm: 609801 1 Tablet(s) PO QDAY PRN 01/14/2014 02/12/2014 Inactive alprazolam 0.25 mg tablet RxNorm: 557593 Tablet(s) PO TAKE ONE TABLET BY MOUTH EVERY DAY NEEDED 01/14/2014 02/24/2014 Inactive (Appended: Controlled substance eRx refill - RxReferenceNumber: [id number]) Lipitor 10 mg tablet RxNorm: 979908 Tablet(s) PO TAKE ONE TABLET BY MOUTH EVERY DAY 01/14/2014 04/13/2014 Inactive Synthroid 100 mcg tablet RxNorm: 270332 Tablet(s) PO TAKE ONE TABLET BY MOUTH EVERY DAY 2013 03/31/2014 Inactive Fioricet 50 mg-325 mg-40 mg tablet RxNorm: 206809 Tablet(s) PO TAKE ONE TABLET BY MOUTH EVERY 4 HOURS NEEDED FOR PAIN 11/27/2013 09/17/2014 Inactive Fioricet 50 mg-325 mg-40 mg tablet RxNorm: 307001 Tablet(s) PO TAKE ONE TABLET BY MOUTH EVERY 4 HOURS NEEDED FOR PAIN 11/25/2013 11/26/2013 Inactive Zithromax Z-Sergio 250 mg tablet RxNorm: 010866 Tablet(s) PO as directed 11/11/2013 01/13/2014 Inactive Bystolic 10 mg tablet RxNorm: 546863 Tablet(s) PO TAKE ONE TABLET BY MOUTH EVERY DAY 10/21/2013 09/28/2014 Inactive Abilify 2 mg tablet RxNorm: 459946 1 Tablet(s) PO QHS 09/25/2013 01/22/2014 Inactive Synthroid 100 mcg tablet RxNorm: 340505 Tablet(s) PO TAKE ONE TABLET BY MOUTH EVERY DAY 09/24/2013 12/25/2013 Inactive Abilify 2 mg tablet RxNorm: 566870 1 Tablet(s) PO QHS 09/24/2013 09/24/2013 Inactive Rocephin 500 mg solution for injection RxNorm: 549065 1ml Milliliter(s) Inj 09/24/2013 09/24/2013 Inactive Rocephin 500 mg solution for injection RxNorm: 120955 1 Milliliter(s) Inj 09/19/2013 09/19/2013 Inactive Bystolic 5 mg tablet RxNorm: 484132 1 1/2 Tablet(s) PO daily 09/17/2013 03/15/2014 Inactive 1 1/2 daily may have 90 day if cheaper Bystolic 5 mg tablet RxNorm: 777411 1 1/2 Tablet(s) PO daily 09/17/2013 09/16/2013 Inactive 1 1/2 daily Lipitor 10 mg tablet RxNorm: 757837 Tablet(s) PO TAKE ONE TABLET BY MOUTH EVERY DAY 09/12/2013 01/13/2014 Inactive hydrocodone 10 mg-acetaminophen 325 mg tablet RxNorm: 286720 Tablet(s) PO TAKE ONE TO TWO TABLETS BY MOUTH EVERY 6 HOURS NEEDED FOR PAIN 09/09/2013 10/29/2017 Inactive (Appended: Controlled substance eRx refill - RxReferenceNumber: [id number]) hydrocodone 10 mg-acetaminophen 325 mg tablet RxNorm: 620910 1 Tablet(s) PO Q6 PRN 09/09/2013 02/06/2014 Inactive hydrocodone 10 mg-acetaminophen 325 mg tablet RxNorm: 588187 Tablet(s) PO TAKE ONE TO TWO TABLETS BY MOUTH EVERY 6 HOURS NEEDED FOR PAIN 09/06/2013 10/29/2017 Inactive (Appended: Controlled substance eRx refill - RxReferenceNumber: [id number]) Norvasc 10 mg tablet RxNorm: 279375 Tablet(s) PO TAKE ONE TABLET BY MOUTH EVERY DAY 09/05/2013 10/25/2015 Inactive trazodone 50 mg tablet RxNorm: 540544 1 1/2 Tablet(s) PO QHS 09/03/2013 03/17/2014 Inactive 75q hs x 2 week may increase to 100mg if nec after that nystatin 100,000 unit/mL oral suspension RxNorm: 798561 6 Milliliter(s) PO QID 08/06/2013 08/15/2013 Inactive Flonase 50 mcg/actuation nasal spray,suspension RxNorm: 184027 2 [place] NASAL daily 08/06/2013 03/03/2014 Inactive nystatin 100,000 unit/mL oral suspension RxNorm: 516308 6 Unit(s) PO QID 08/05/2013 08/05/2013 Inactive Phenergan with Codeine Syrup RxNorm: 5 Milliliter(s) PO Q4 PRN 08/05/2013 12/02/2013 Inactive 8 ounces alprazolam 0.25 mg tablet RxNorm: 562392 1 Tablet(s) PO QDAY PRN 07/29/2013 01/14/2014 Inactive Diflucan 150 mg tablet RxNorm: 182624 1 Tablet(s) PO daily 07/24/2013 07/26/2013 Inactive hydrochlorothiazide 25 mg tablet RxNorm: 143762 Tablet(s) PO TAKE ONE TABLET BY MOUTH EVERY DAY MUST CALL MD FOR APPOINTMENT 07/19/2013 03/05/2014 Inactive Phenergan with Codeine Syrup RxNorm: 10 Milliliter(s) PO Q4 PRN 07/10/2013 08/04/2013 Inactive 8 ounces Rocephin 500 mg solution for injection RxNorm: 927752 1 Inj 07/10/2013 07/10/2013 Inactive cefdinir 300 mg capsule RxNorm: 244879 1 Capsule(s) PO BID 07/10/2013 07/16/2013 Inactive prednisone 10 mg tablet RxNorm: 131594 3 Tablet(s) PO daily 07/10/2013 07/14/2013 Inactive Carafate 100 mg/mL oral suspension RxNorm: 177972 10 Milliliter(s) PO Q6 PRN pt to take carafate 10mL every 6 hours as needed. 07/10/2013 08/05/2014 Inactive Kenalog 40 mg/mL suspension for injection RxNorm: 9194621 1 Milliliter(s) Inj 07/10/2013 07/10/2013 Inactive trazodone 50 mg tablet RxNorm: 271833 1 Tablet(s) PO QHS 07/10/2013 09/02/2013 Inactive sulfamethoxazole 800 mg-trimethoprim 160 mg tablet RxNorm: 792805 1 Tablet(s) PO BID 06/03/2013 06/12/2013 Inactive Synthroid 125 mcg tablet RxNorm: 128200 1 Tablet(s) PO daily 05/07/2013 09/23/2013 Inactive Bystolic 10 mg tablet RxNorm: 939689 1.5 Tablet(s) PO daily 05/07/2013 09/03/2013 Inactive Voltaren 1 % Topical Gel RxNorm: 482511 4 Gram(s) TOP QID apply 4 grams to knees, 2 grams to hands and ankles four times daily. 05/07/2013 09/03/2013 Inactive hydrocodone 10 mg-acetaminophen 325 mg tablet RxNorm: 115077 1 Tablet(s) PO Q6 PRN 04/23/2013 09/09/2013 Inactive Norvasc 10 mg tablet RxNorm: 833297 Tablet(s) PO TAKE ONE TABLET BY MOUTH EVERY DAY 04/23/2013 09/04/2013 Inactive alprazolam 0.25 mg tablet RxNorm: 090061 1 Tablet(s) PO QDAY PRN 03/25/2013 07/22/2013 Inactive Bystolic 10 mg tablet RxNorm: 765680 1 Tablet(s) PO daily TAKE ONE TABLET BY MOUTH EVERY DAY 03/25/2013 05/06/2013 Inactive zolpidem 10 mg tablet RxNorm: 271817 1 Tablet(s) PO HS PRN 03/25/2013 07/09/2013 Inactive gentamicin 0.3 % Eye Drops RxNorm: 8225122 3 Drop(s) OPH QID three gtts to each eye QID x 7 days 03/11/2013 03/10/2013 Inactive gentamicin 0.3 % eye drops RxNorm: 942809 3 Drop(s) OPH QID three gtts to each eye QID x 7 days 03/11/2013 03/17/2013 Inactive Nexium 40 mg capsule,delayed release RxNorm: 744962 Capsule(s) PO TAKE ONE CAPSULE BY MOUTH EVERY DAY 02/15/2013 02/17/2014 Inactive Cymbalta 60 mg capsule,delayed release RxNorm: 263467 Capsule(s) PO TAKE ONE CAPSULE BY MOUTH TWICE A DAY 02/15/2013 02/17/2014 Inactive hydrocodone 10 mg-acetaminophen 325 mg tablet RxNorm: 4685854 1 Tablet(s) PO Q6 PRN 01/22/2013 04/22/2013 Inactive Lipitor 10 mg tablet RxNorm: 148675 Tablet(s) PO TAKE ONE TABLET BY MOUTH EVERY DAY 01/07/2013 09/11/2013 Inactive Cymbalta 60 mg capsule,delayed release RxNorm: 381796 Capsule(s) PO TAKE ONE CAPSULE BY MOUTH TWICE A DAY 01/02/2013 02/14/2013 Inactive Synthroid 100 mcg tablet RxNorm: 093338 1 Tablet(s) PO 12/03/2012 05/06/2013 Inactive Enablex 7.5 mg tablet,extended release RxNorm: 751901 1 Tablet(s) PO daily 11/28/2012 11/27/2012 Inactive Enablex 7.5 mg tablet,extended release RxNorm: 245865 1 Tablet(s) PO daily 11/28/2012 11/28/2012 Inactive scopolamine 1.5 mg 72 hr Transderm Patch RxNorm: 790886 1 Milligram(s) TD q72 hours 11/26/2012 05/06/2013 Inactive hydrochlorothiazide 25 mg tablet RxNorm: 557439 Tablet(s) PO TAKE ONE TABLET BY MOUTH EVERY DAY MUST CALL FOR APPOINTMENT 11/24/2012 07/18/2013 Inactive Cymbalta 60 mg capsule,delayed release RxNorm: 281727 Capsule(s) PO TAKE ONE CAPSULE BY MOUTH TWICE A DAY 10/26/2012 01/01/2013 Inactive Bystolic 10 mg tablet RxNorm: 321772 Tablet(s) PO TAKE ONE TABLET BY MOUTH EVERY DAY 10/12/2012 03/25/2013 Inactive zolpidem 10 mg tablet RxNorm: 062078 1 Tablet(s) PO HS PRN 10/02/2012 01/29/2013 Inactive alprazolam 0.25 mg tablet RxNorm: 283468 1 Tablet(s) PO QDAY PRN 10/02/2012 01/29/2013 Inactive Kenalog 40 mg/mL Susp for Injection RxNorm: 4623851 1 Milliliter(s) Inj 09/24/2012 09/24/2012 Inactive Diflucan 150 mg tablet RxNorm: 845873 1 Tablet(s) PO daily 09/24/2012 09/30/2012 Inactive acyclovir 400 mg tablet RxNorm: 820598 1 Tablet(s) PO QID 09/24/2012 10/08/2012 Inactive Cipro 500 mg tablet RxNorm: 059617 1 Tablet(s) PO BID 09/24/2012 09/30/2012 Inactive Tamiflu 75 mg capsule RxNorm: 920926 1 Capsule(s) PO BID 09/17/2012 09/16/2012 Inactive Tamiflu 75 mg capsule RxNorm: 240540 1 Capsule(s) PO BID 09/17/2012 09/16/2012 Inactive Tamiflu 75 mg capsule RxNorm: 973191 1 Capsule(s) PO BID please disregard order for #14 09/17/2012 09/21/2012 Inactive fluconazole 150 mg tablet RxNorm: 443002 1 Tablet(s) PO daily 09/10/2012 09/13/2012 Inactive ketoconazole 2 % Topical Cream RxNorm: 248212 Application TOP BID apply to affected area BID until gone 08/31/2012 11/01/2017 Inactive Norvasc 10 mg tablet RxNorm: 216920 Tablet(s) PO TAKE ONE TABLET BY MOUTH EVERY DAY 08/29/2012 04/22/2013 Inactive Cipro 500 mg tablet RxNorm: 765591 1 Tablet(s) PO BID 08/17/2012 08/26/2012 Inactive Flagyl 500 mg tablet RxNorm: 985392 1 Tablet(s) PO TID 08/17/2012 08/23/2012 Inactive Cipro 500 mg tablet RxNorm: 260040 1 Tablet(s) PO BID 08/17/2012 08/16/2012 Inactive zolpidem 10 mg tablet RxNorm: 022975 1 Tablet(s) PO HS PRN 08/17/2012 09/15/2012 Inactive Flagyl 500 mg tablet RxNorm: 844195 1 Tablet(s) PO TID 08/17/2012 08/16/2012 Inactive alprazolam 0.25 mg tablet RxNorm: 788067 1 Tablet(s) PO QDAY PRN 08/17/2012 09/15/2012 Inactive [place] Allergy 180 mg tablet RxNorm: 608708 1 Tablet(s) PO daily 08/08/2012 02/03/2013 Inactive hydrochlorothiazide 25 mg tablet RxNorm: 467072 1/2 Tablet(s) PO daily 08/08/2012 11/05/2012 Inactive needs appt Carafate 1 gram tablet RxNorm: 672224 1 Tablet(s) PO QID mix with 10 cc water and dissolve into slurry 08/08/2012 08/21/2012 Inactive hydrocodone 10 mg-acetaminophen 325 mg tablet RxNorm: 8086462 1 Tablet(s) PO Q6 PRN 08/08/2012 01/21/2013 Inactive Synthroid 100 mcg tablet RxNorm: 326366 1 Tablet(s) PO 08/08/2012 12/02/2012 Inactive Cymbalta 60 mg capsule,delayed release RxNorm: 438784 Capsule(s) PO 07/23/2012 10/25/2012 Inactive TAKE ONE CAPSULE BY MOUTH TWICE A DAY Nexium 40 mg capsule,delayed release RxNorm: 755198 Capsule(s) PO 06/20/2012 02/14/2013 Inactive TAKE ONE CAPSULE BY MOUTH EVERY DAY Lipitor 10 mg tablet RxNorm: 405888 Tablet(s) PO 06/20/2012 01/06/2013 Inactive TAKE ONE TABLET BY MOUTH EVERY DAY hydrochlorothiazide 25 mg tablet RxNorm: 071062 1 Tablet(s) PO daily 06/19/2012 08/07/2012 Inactive needs appt alprazolam 0.25 mg tablet RxNorm: 200338 1 Tablet(s) PO QDAY PRN 06/05/2012 07/04/2012 Inactive zolpidem 10 mg tablet RxNorm: 874865 1 Tablet(s) PO HS PRN 06/05/2012 07/04/2012 Inactive zolpidem 10 mg tablet RxNorm: 396910 1 Tablet(s) PO HS PRN 04/16/2012 05/15/2012 Inactive alprazolam 0.25 mg tablet RxNorm: 699355 1 Tablet(s) PO QDAY PRN 04/16/2012 05/15/2012 Inactive Cymbalta 60 mg capsule,delayed release RxNorm: 965708 1 Capsule(s) PO BID 03/22/2012 07/19/2012 Inactive Fioricet 50 mg-325 mg-40 mg tablet RxNorm: 776155 1 Tablet(s) PO Q4 PRN 03/22/2012 11/24/2013 Inactive Bystolic 10 mg tablet RxNorm: 701093 Tablet(s) PO 03/22/2012 10/11/2012 Inactive TAKE ONE TABLET BY MOUTH EVERY DAY potassium chloride ER 10 mEq Tab RxNorm: 500437 1 Tablet(s) PO daily 02/24/2012 03/01/2012 Inactive Lasix 20 mg Tab RxNorm: 035934 1 Tablet(s) PO daily 02/22/2012 02/21/2012 Inactive KCL 10 meq RxNorm: 1 PO daily 02/22/2012 02/21/2012 Inactive potassium chloride ER 10 mEq Tab RxNorm: 742435 1 Tablet(s) PO daily 02/22/2012 02/21/2012 Inactive Lasix 20 mg Tab RxNorm: 552925 1 Tablet(s) PO daily 02/22/2012 02/28/2012 Inactive KCL 10 meq RxNorm: 1 PO daily 02/22/2012 02/22/2012 Inactive potassium chloride ER 10 mEq Tab RxNorm: 021497 1 Tablet(s) PO daily 02/22/2012 02/23/2012 Inactive Rocephin 500 mg Solution for Injection RxNorm: 948831 Inj 02/15/2012 02/15/2012 Inactive Nexium 40 mg capsule,delayed release RxNorm: 090325 1 Capsule(s) PO daily 02/15/2012 No Stop Date Active Bystolic 10 mg Tab RxNorm: 757970 1 Tablet(s) PO daily 02/15/2012 08/12/2012 Inactive alprazolam 0.25 mg tablet RxNorm: 081446 1 Tablet(s) PO QDAY PRN 01/31/2012 02/29/2012 Inactive zolpidem 10 mg tablet RxNorm: 774753 1 Tablet(s) PO HS PRN 01/31/2012 02/29/2012 Inactive alprazolam 0.25 mg Tab RxNorm: 489189 1 Tablet(s) PO QDAY PRN 12/16/2011 01/14/2012 Inactive zolpidem 10 mg Tab RxNorm: 872778 1 Tablet(s) PO HS PRN 12/16/2011 01/14/2012 Inactive Norvasc 10 mg tablet RxNorm: 427372 1 Tablet(s) PO daily 12/02/2011 02/21/2012 Inactive Lipitor 10 mg tablet RxNorm: 785050 1 Tablet(s) PO daily 11/16/2011 05/13/2012 Inactive zolpidem 10 mg Tab RxNorm: 574142 1 Tablet(s) PO HS PRN 10/26/2011 12/15/2011 Inactive alprazolam 0.25 mg Tab RxNorm: 167178 1 Tablet(s) PO QDAY PRN 10/26/2011 12/15/2011 Inactive hydrochlorothiazide 25 mg tablet RxNorm: 773902 1 Tablet(s) PO daily 09/05/2011 03/02/2012 Inactive Synthroid 75 mcg tablet RxNorm: 937838 1 Tablet(s) PO daily 08/01/2011 02/26/2012 Inactive Abilify 2 mg Tab RxNorm: 679951 1 Tablet(s) PO QHS 08/01/2011 09/10/2012 Inactive dicyclomine 10 mg Cap RxNorm: 799072 1 Capsule(s) PO TID 08/01/2011 10/29/2011 Inactive alprazolam 0.25 mg Tab RxNorm: 828678 1 Tablet(s) PO QDAY PRN 07/26/2011 10/25/2011 Inactive Fioricet 50 mg-325 mg-40 mg tablet RxNorm: 925036 1 Tablet(s) PO Q4 PRN 07/14/2011 03/21/2012 Inactive Rocephin 500 mg Solution for Injection RxNorm: 184238 1 Milliliter(s) Inj 07/14/2011 08/01/2011 Inactive Nexium 40 mg Capsule, delayed release RxNorm: 378448 1 Capsule(s) PO daily 05/23/2011 10/06/2011 Inactive Bystolic 10 mg tablet RxNorm: 451697 1 Tablet(s) PO daily 05/23/2011 11/18/2011 Inactive Bystolic 10 mg Tab RxNorm: 202709 1 Tablet(s) PO daily 05/23/2011 05/22/2011 Inactive alprazolam 0.25 mg Tab RxNorm: 079581 1 Tablet(s) PO QDAY PRN 05/23/2011 07/25/2011 Inactive Influenza Virus Vaccine 0.5 mL RxNorm: IM 05/23/2011 05/23/2011 Inactive zolpidem 10 mg Tab RxNorm: 353410 1 Tablet(s) PO HS PRN 05/23/2011 10/25/2011 Inactive Rocephin 500 mg Solution for Injection RxNorm: 618944 1 Milliliter(s) Inj 05/03/2011 07/14/2011 Inactive Kenalog 40 mg/mL Susp for Injection RxNorm: 7153489 1 Milliliter(s) Inj 05/03/2011 07/14/2011 Inactive Bactrim DS 800 mg-160 mg Tab RxNorm: 498187 1 Tablet(s) PO BID 05/03/2011 08/01/2011 Inactive Bystolic 10 mg tablet RxNorm: 194655 1 Tablet(s) PO daily No Start Date Active Flonase 50 mcg/actuation nasal spray,suspension RxNorm: 8922814 2 [place] NASAL daily No Start Date 08/05/2013 Inactive Levaquin 500 mg tablet RxNorm: 298679 Tablet(s) PO No Start Date 04/19/2017 Inactive Duragesic 50 mcg/hr transdermal patch RxNorm: 107079 1 TD q72 hours No Start Date 01/13/2014 Inactive Vesicare 5 mg tablet RxNorm: 171913 1 Tablet(s) PO daily No Start Date 01/06/2015 Inactive Celebrex 200 mg capsule RxNorm: 531629 1 Capsule(s) PO daily No Start Date 04/02/2014 Inactive zolpidem 10 mg Tab RxNorm: 359936 1 Tablet(s) PO HS PRN No Start Date 05/22/2011 Inactive Zyrtec 10 mg Tab RxNorm: 8433131 1 Tablet(s) PO daily No Start Date 08/08/2012 Inactive Flonase 50 mcg/actuation nasal spray,suspension RxNorm: 5238218 1 [place] NASAL daily No Start Date 11/07/2017 Inactive 1 spray to each nostril daily Nexium 40 mg Cap RxNorm: 695421 1 Capsule(s) PO daily No Start Date 05/22/2011 Inactive ketoconazole 2 % Topical Cream RxNorm: 554501 Application TOP BID apply to affected area BID until gone No Start Date 08/30/2012 Inactive aspirin 81 mg tablet RxNorm: 884031 1 Tablet(s) PO daily No Start Date 11/13/2017 Inactive Cymbalta 60 mg capsule,delayed release RxNorm: 306431 1 Capsule(s) PO BID No Start Date 03/21/2012 Inactive alprazolam 0.25 mg Tab RxNorm: 353224 1 Tablet(s) PO QDAY PRN No Start Date 05/22/2011 Inactive baclofen 10 mg tablet RxNorm: 885755 1 Tablet(s) PO TID as needed muscle spasms No Start Date 11/14/2017 Inactive Toprol XL 100 mg 24 hr Tab RxNorm: 489119 1 Tablet(s) PO BID No Start Date 04/25/2011 Inactive Xanax 0.25 mg tablet RxNorm: 652676 1 Tablet(s) PO daily as needed No Start Date 12/27/2015 Inactive Bystolic 10 mg Tab RxNorm: 460183 1 Tablet(s) PO daily No Start Date 05/22/2011 Inactive Fioricet 50 mg-325 mg-40 mg Tab RxNorm: 170892 1 Tablet(s) PO Q4 PRN No Start Date 07/13/2011 Inactive albuterol sulfate HFA 90 mcg/Actuation Aerosol Inhaler RxNorm: 0899787 1 INH Q4 PRN No Start Date 01/06/2015 Inactive Imitrex 50 mg tablet RxNorm: 120937 1 Tablet(s) PO Q8 as needed may repeat x1 dose in 1 hour of inital dose. No Start Date 02/24/2016 Inactive dc fioricet Tessalon 200 mg Cap RxNorm: 804282 1 Capsule(s) PO Q4 PRN No Start Date 02/14/2012 Inactive Zithromax Z-Sergio 250 mg tablet RxNorm: 289615 Tablet(s) PO No Start Date 11/10/2013 Inactive hydrochlorothiazide 25 mg Tab RxNorm: 037510 1 Tablet(s) PO daily No Start Date 09/04/2011 Inactive Fish Oil 1,000 mg Cap RxNorm: 1 Capsule(s) PO TID No Start Date 11/08/2017 Inactive Deplin 15 mg Tab RxNorm: 1 Tablet(s) PO daily No Start Date 08/01/2011 Inactive Brilinta 90 mg tablet RxNorm: 9389250 1 Tablet(s) PO BID No Start Date 11/23/2015 Inactive Synthroid 75 mcg Tab RxNorm: 237267 1 Tablet(s) PO daily No Start Date 07/31/2011 Inactive ciprofloxacin 0.3 % eye drops RxNorm: 936267 2 Drop(s) ophthalmic (eye) Q2H while awake x 2 days, then Q4H x 5 days No Start Date 11/22/2017 Inactive scopolamine 1.5 mg 72 hr Transderm Patch RxNorm: 222194 1 Milligram(s) TD q72 hours No Start Date 11/25/2012 Inactive hydrocodone-acetaminophen 10 mg-325 mg tablet RxNorm: 5786505 1 Tablet(s) PO Q6 PRN No Start Date 08/07/2012 Inactive Phenergan with Codeine Syrup RxNorm: 5-10 Milliliter(s) PO Q6 PRN No Start Date 02/14/2012 Inactive Norvasc 10 mg Tab RxNorm: 454084 1 Tablet(s) PO daily No Start Date 12/01/2011 Inactive Zithromax Z-Sergio 250 mg Tab RxNorm: 260692 Tablet(s) PO No Start Date 08/01/2011 Inactive Medication Administered Medication Codes Instructions Start Date Status ceftriaxone 500 mg solution for injection RxNorm: 4203582 05/28/2018 No longer Active Kenalog 40 mg/mL suspension for injection RxNorm: 0495402 Milliliter 05/28/2018 No longer Active Kenalog 40 mg/mL suspension for injection RxNorm: 0525100 1Milliliter 01/19/2018 No longer Active ceftriaxone 500 mg solution for injection RxNorm: 4443569 500Milligram 01/19/2018 No longer Active Kenalog 40 mg/mL suspension for injection RxNorm: 9450473 1Milliliter 06/27/2017 No longer Active Kenalog 40 mg/mL suspension for injection RxNorm: 5583870 Milliliter 04/20/2017 No longer Active Kenalog 40 mg/mL suspension for injection RxNorm: 1689072 1Milliliter 03/14/2017 No longer Active ceftriaxone 500 mg solution for injection RxNorm: 5373241 1Milliliter 11/28/2016 No longer Active ceftriaxone 500 mg solution for injection RxNorm: 0201674 11/07/2016 No longer Active Kenalog 40 mg/mL suspension for injection RxNorm: 7388104 Milliliter 11/07/2016 No longer Active ceftriaxone 500 mg solution for injection RxNorm: 6722385 12/07/2015 No longer Active ceftriaxone 500 mg solution for injection RxNorm: 3354770 Milliliter 11/24/2015 No longer Active Kenalog 40 mg/mL suspension for injection RxNorm: 5435696 1Milliliter 11/24/2015 No longer Active ketorolac 60 mg/2 mL intramuscular solution RxNorm: 530156 Milliliter 08/27/2015 No longer Active promethazine 25 mg/mL injection solution RxNorm: 023195 Milliliter 08/27/2015 No longer Active ceftriaxone 500 mg solution for injection RxNorm: 2026688 08/10/2015 No longer Active Kenalog 40 mg/mL suspension for injection RxNorm: 8954097 Milliliter 08/10/2015 No longer Active ceftriaxone 500 mg solution for injection RxNorm: 7688456 1Milliliter 07/28/2015 No longer Active Kenalog 40 mg/mL suspension for injection RxNorm: 5834289 Milliliter 03/19/2015 No longer Active ceftriaxone 500 mg solution for injection RxNorm: 035553 06/23/2014 No longer Active Kenalog 40 mg/mL suspension for injection RxNorm: 3306615 Milliliter 06/23/2014 No longer Active Rocephin 500 mg solution for injection RxNorm: 370114 1mlMilliliter 09/24/2013 No longer Active Rocephin 500 mg solution for injection RxNorm: 921067 1Milliliter 09/19/2013 No longer Active Kenalog 40 mg/mL suspension for injection RxNorm: 6705129 1Milliliter 07/10/2013 No longer Active Rocephin 500 mg solution for injection RxNorm: 445034 1 07/10/2013 No longer Active Kenalog 40 mg/mL Susp for Injection RxNorm: 0951426 1Milliliter 09/24/2012 No longer Active Rocephin 500 mg Solution for Injection RxNorm: 319663 02/15/2012 No longer Active Influenza Virus Vaccine 0.5 mL RxNorm: 05/23/2011 No longer Active Immunizations Vaccine Codes Date Status Influenza CVX: 141 06/24/2013 completed Pneumococcal CVX: 33 06/24/2013 completed PPD Unknown 05/13/2013 completed Assessments Condition Codes Effective Dates Acute recurrent maxillary sinusitis ICD-10: J01.01 ICD-9: 461.0 05/28/2018 Laceration without foreign body, right lower leg, [...] allergic rhinitis ICD-10: J30.89 ICD-9: 477.8 01/19/2018 Low back pain ICD-10: M54.5 ICD-9: 724.2 01/19/2018 Encounter for general adult medical examination [...] For Visit Effective Dates Notes sinus congestion 05/28/2018 sores 02/08/2018 sores 02/07/2018 [...] Item Item Code Result Date Comp Metabolic Idr956 NA 141 mEq/L 09/12/2017 Comp Metabolic Xaw921 K 4.1 mEq/L 09/12/2017 Comp Metabolic Tej084 CL 105 mEq/L 09/12/2017 Comp Metabolic Ujt574 CO2 30.0 mEq/L 09/12/2017 Comp Metabolic Okr244 ANION GAP 10 09/12/2017 Comp Metabolic Pzn973 GLUCOSE 97 mg/dL 09/12/2017 Comp Metabolic Rpz177 Creat 0.7 mg/dL 09/12/2017 Comp Metabolic Nfz080 eGFR 91 ml/min/1.73m2 09/12/2017 Comp Metabolic Goa574 BUN 18 mg/dL 09/12/2017 Comp Metabolic Opw408 B/C Ratio 26.5 Ratio 09/12/2017 Comp Metabolic Ant766 CALCIUM 9.7 mg/dL 09/12/2017 Comp Metabolic Hod709 ALK PHOS 60 U/L 09/12/2017 Comp Metabolic Cpw300 AST(SGOT) 22 U/L 09/12/2017 Comp Metabolic Evh477 ALT(SGPT) 23 U/L 09/12/2017 Comp Metabolic Rpa764 BILI T 0.4 mg/dL 09/12/2017 Comp Metabolic Evc415 ALBUMIN 3.8 g/dL 09/12/2017 Comp Metabolic Fac062 TPRO 6.4 g/dL 09/12/2017 Comp Metabolic Pwf693 GLOB 2.6 g/dL 09/12/2017 Comp Metabolic Nkf547 A/G Ratio 1.5 Ratio 09/12/2017 Comp Metabolic Pmj548 Osmo 283 mOsmo 09/12/2017 Cbc With Differential [...] 30.7 pg 09/12/2017 Cbc With Differential Ord2 [place]% 7.2 % 09/12/2017 Cbc With Differential Ord2 [...] 2.46 K/ul 09/12/2017 Cbc With Differential Ord2 [place] ABS# 0.6 K/ul 09/12/2017 Cbc With Differential [...] 26.9 % 11/07/2016 Cbc With Differential Ord2 [place]% 6.1 % 11/07/2016 Cbc With Differential Ord2 [...] 2.48 K/ul 11/07/2016 Cbc With Differential Ord2 [place] ABS# 0.6 K/ul 11/07/2016 Cbc With Differential Ord2 [place] ABS# 0.3 K/ul 11/07/2016 Cbc With Differential Ord2 Baso ABS# 0.1 K/ul 11/07/2016 Comp Metabolic Ynu709 NA 139 mEq/L 11/07/2016 Comp Metabolic Utu908 K 3.8 mEq/L 11/07/2016 Comp Metabolic Yom326 CL 106 mEq/L 11/07/2016 Comp Metabolic Sjc162 CO2 25.0 mEq/L 11/07/2016 Comp Metabolic Ufq969 ANION GAP 12 11/07/2016 Comp Metabolic Iyp429 GLUCOSE 98 mg/dL 11/07/2016 Comp Metabolic Cyc392 Creat 0.8 mg/dL 11/07/2016 Comp Metabolic Pyn473 eGFR 71 ml/min/1.73m2 11/07/2016 Comp Metabolic Hwe982 BUN 36 mg/dL 11/07/2016 Comp Metabolic Noj179 B/C Ratio 42.9 Ratio 11/07/2016 Comp Metabolic Uvw846 CALCIUM 9.9 mg/dL 11/07/2016 Comp Metabolic Clk892 ALK PHOS 57 U/L 11/07/2016 Comp Metabolic Mwv022 AST(SGOT) 24 U/L 11/07/2016 Comp Metabolic Rdi183 ALT(SGPT) 28 U/L 11/07/2016 Comp Metabolic Jmb684 BILI T 0.4 mg/dL 11/07/2016 Comp Metabolic Lif240 ALBUMIN 4.2 g/dL 11/07/2016 Comp Metabolic Tty302 TPRO 7.0 g/dL 11/07/2016 Comp Metabolic Dcm928 GLOB 2.8 g/dL 11/07/2016 Comp Metabolic Gjk020 A/G Ratio 1.5 Ratio 11/07/2016 Comp Metabolic Zip956 Osmo 286 mOsmo 11/07/2016 Free T4 Tar204 FREE T4 0.75 ng/dL 11/07/2016 Tsh Ord6 hTSH II 3.46 uIU/mL 11/07/2016 Comp Metabolic Pcs546 NA 138 mEq/L 05/10/2016 Comp Metabolic Hsw013 K 3.8 mEq/L 05/10/2016 Comp Metabolic Tmd641 CL 102 mEq/L 05/10/2016 Comp Metabolic Eex555 CO2 29.0 mEq/L 05/10/2016 Comp Metabolic Spe578 ANION GAP 11 05/10/2016 Comp Metabolic Nqw709 GLUCOSE 107 mg/dL 05/10/2016 Comp Metabolic Gtr760 Creat 0.7 mg/dL 05/10/2016 Comp Metabolic Qcl737 eGFR 93 ml/min/1.73m2 05/10/2016 Comp Metabolic Oou978 BUN 18 mg/dL 05/10/2016 Comp Metabolic Arq026 B/C Ratio 26.9 Ratio 05/10/2016 Comp Metabolic Cib353 CALCIUM 9.8 mg/dL 05/10/2016 Comp Metabolic Qgs926 ALK PHOS 60 U/L 05/10/2016 Comp Metabolic Gur856 AST(SGOT) 21 U/L 05/10/2016 Comp Metabolic Ree370 ALT(SGPT) 23 U/L 05/10/2016 Comp Metabolic Kfn906 BILI T 0.5 mg/dL 05/10/2016 Comp Metabolic Ojq082 ALBUMIN 4.1 g/dL 05/10/2016 Comp Metabolic Xcx742 TPRO 6.7 g/dL 05/10/2016 Comp Metabolic Qcu748 GLOB 2.7 g/dL 05/10/2016 Comp Metabolic Bvp526 A/G Ratio 1.5 Ratio 05/10/2016 Comp Metabolic Qwu991 Osmo 278 mOsmo 05/10/2016 Lipid Ord30 CHOL 169 mg/dL 05/10/2016 Lipid Ord30 HDL 50.0 mg/dl 05/10/2016 Lipid Ord30 TRIG 161 mg/dL 05/10/2016 Lipid Ord30 LDL 87 mg/dL 05/10/2016 Lipid Ord30 C/HDL 3.4 Ratio 05/10/2016 Comp Metabolic Rch168 NA 137 mEq/L 06/12/2015 Comp Metabolic Qnk820 K 3.8 mEq/L 06/12/2015 Comp Metabolic Kat164 CL 104 mEq/L 06/12/2015 Comp Metabolic Jqv932 CO2 24.0 mEq/L 06/12/2015 Comp Metabolic Djn136 ANION GAP 13 06/12/2015 Comp Metabolic Bql922 GLUCOSE 92 mg/dL 06/12/2015 Comp Metabolic Kxn861 Creat 0.7 mg/dL 06/12/2015 Comp Metabolic Xlo595 eGFR 87 ml/min/1.73m2 06/12/2015 Comp Metabolic Adh629 BUN 31 mg/dL 06/12/2015 Comp Metabolic Qps555 B/C Ratio 43.7 Ratio 06/12/2015 Comp Metabolic Moe610 CALCIUM 10.0 mg/dL 06/12/2015 Comp Metabolic Jkh672 ALK PHOS 58 U/L 06/12/2015 Comp Metabolic Lau648 AST(SGOT) 32 U/L 06/12/2015 Comp Metabolic Dfd373 ALT(SGPT) 33 U/L 06/12/2015 Comp Metabolic Mjm257 BILI T 0.5 mg/dL 06/12/2015 Comp Metabolic Wlt233 ALBUMIN 4.1 g/dL 06/12/2015 Comp Metabolic Ott011 TPRO 6.6 g/dL 06/12/2015 Comp Metabolic Xut924 GLOB 2.5 g/dL 06/12/2015 Comp Metabolic Rfm315 A/G Ratio 1.6 Ratio 06/12/2015 Comp Metabolic Pty621 Osmo 280 mOsmo 06/12/2015 Cbc With Differential [...] Differential Ord2 RDW 14.2 % 06/12/2015 CBC 4658121 WBC 8.7 10e9/L 04/30/2013 CBC 4108828 RBC 4.63 10e12/L 04/30/2013 CBC 0784222 HGB 14.1 g/dL 04/30/2013 CBC 2416235 HCT DET 42.2 % 04/30/2013 CBC 5718735 MCV 91.1 fL 04/30/2013 CBC 7056584 MCH 30.5 pg 04/30/2013 CBC 5857257 MCHC 33.4 g/dL 04/30/2013 CBC 2692829 PLT 248 10e9/L 04/30/2013 CBC 6349472 MPV 12.1 fL 04/30/2013 CBC 1308349 LARA % 59.0 % 04/30/2013 CBC 5650309 LY % 27.6 % 04/30/2013 CBC 6689246 MON % 8.0 % 04/30/2013 CBC 0904885 EOS % 4.8 % 04/30/2013 CBC 3054582 BASO % 0.6 % 04/30/2013 CBC 9102772 RDW 13.3 % 04/30/2013 CBC 6796092 ABS LARA 5.13 10e9/L 04/30/2013 CBC 0634389 ABS LYMPH 2.40 10e9/L 04/30/2013 CBC 2666099 ABS MONO 0.70 10e9/L 04/30/2013 CBC 8822588 ABS EOS 0.42 10e9/L 04/30/2013 CBC 4641643 ABS BASO 0.05 10e9/L 04/30/2013 CBC 1691297 RDW-SD 43.1 fL 04/30/2013 TSH 1260796 TSH 4.339 uIU/ML 04/30/2013 A1C HPLC 7598794 A1C HPLC 71036-6 5.6 % 04/30/2013 FREE T4 0564673 FREE T4 0.84 NG/DL 04/30/2013 GFR CALC 6020563 GFR AA >60 ML/MIN 04/30/2013 GFR CALC 7745441 GFR NON-AA >60 ML/MIN 04/30/2013 CHEM 14 6170123 AST 22 U/L 04/30/2013 CHEM 14 0699213 ALT 22 IU/L 04/30/2013 CHEM 14 8880025 BUN 24 MG/DL 04/30/2013 CHEM 14 4179801 ALBUMIN 4.2 GM/DL 04/30/2013 CHEM 14 6871693 CHLORIDE 107 MMOL/L 04/30/2013 CHEM 14 0785647 BILI TOT 0.3 MG/DL 04/30/2013 CHEM 14 8638377 ALK PHOS 88 U/L 04/30/2013 CHEM 14 0126802 SODIUM 141 MMOL/L 04/30/2013 CHEM 14 4145021 CREATININE 0.60 MG/DL 04/30/2013 CHEM 14 7981132 CALCIUM 9.9 MG/DL 04/30/2013 CHEM 14 9914603 POTASSIUM 3.7 MMOL/L 04/30/2013 CHEM 14 9323067 PROT TOT 6.6 GM/DL 04/30/2013 CHEM 14 5459378 GLUCOSE 123 MG/DL 04/30/2013 CHEM 14 5753682 BICARB 25 MMOL/L 04/30/2013 CHEM 14 8983779 ANION GAP 9 MEQ/L 04/30/2013 LIPID GRP HDL TEST 46 MG/DL 04/30/2013 LIPID GRP TRIG 148 MG/DL 04/30/2013 LIPID GRP TEST LDL 75 MG/DL 04/30/2013 LIPID GRP CHOL 151 MG/DL 04/30/2013 LIPID GRP RCHOL/HDL 3.28 RATIO 04/30/2013 TSH 6177262 TSH 3.341 uIU/ML 11/29/2012 CBC 7728051 WBC 8.4 10e9/L 11/29/2012 CBC 9629733 RBC 4.77 10e12/L 11/29/2012 CBC 6704435 HGB 14.9 g/dL 11/29/2012 CBC 6939498 HCT DET 44.2 % 11/29/2012 CBC 2764710 MCV 92.7 fL 11/29/2012 CBC 4742897 MCH 31.2 pg 11/29/2012 CBC 2474254 MCHC 33.7 g/dL 11/29/2012 CBC 2047101 PLT 253 10e9/L 11/29/2012 CBC 0515046 MPV 11.8 fL 11/29/2012 CBC 8389652 LARA % 54.9 % 11/29/2012 CBC 4349241 LY % 29.0 % 11/29/2012 CBC 8366090 MON % 10.4 % 11/29/2012 CBC 6381278 EOS % 5.1 % 11/29/2012 CBC 6850751 BASO % 0.6 % 11/29/2012 CBC 3231412 RDW 13.8 % 11/29/2012 CBC 0555325 ABS LARA 4.61 10e9/L 11/29/2012 CBC 7044169 ABS LYMPH 2.44 10e9/L 11/29/2012 CBC 1091257 ABS MONO 0.87 10e9/L 11/29/2012 CBC 0724210 ABS EOS 0.43 10e9/L 11/29/2012 CBC 0497756 ABS BASO 0.05 10e9/L 11/29/2012 CBC 3594135 RDW-SD 45.9 fL 11/29/2012 CHEM 14 8359161 AST 25 U/L 11/29/2012 CHEM 14 2079361 ALT 26 IU/L 11/29/2012 CHEM 14 9395040 BUN 25 MG/DL 11/29/2012 CHEM 14 2986589 ALBUMIN 4.4 GM/DL 11/29/2012 CHEM 14 3500237 CHLORIDE 106 MMOL/L 11/29/2012 CHEM 14 1242706 BILI TOT 0.4 MG/DL 11/29/2012 CHEM 14 0268517 ALK PHOS 86 U/L 11/29/2012 CHEM 14 1461198 SODIUM 141 MMOL/L 11/29/2012 CHEM 14 1592306 CREATININE 0.80 MG/DL 11/29/2012 CHEM 14 1102347 CALCIUM 9.7 MG/DL 11/29/2012 CHEM 14 9845881 POTASSIUM 4.0 MMOL/L 11/29/2012 CHEM 14 3246055 PROT TOT 6.6 GM/DL 11/29/2012 CHEM 14 2080602 GLUCOSE 112 MG/DL 11/29/2012 CHEM 14 8746862 BICARB 29 MMOL/L 11/29/2012 CHEM 14 4272798 ANION GAP 6 MEQ/L 11/29/2012 A1C HPLC 2328651 A1C HPLC 00196-9 5.5 % 11/29/2012 LIPID GRP HDL TEST 54 MG/DL 11/29/2012 LIPID GRP TRIG 77 MG/DL 11/29/2012 LIPID GRP TEST LDL 78 MG/DL 11/29/2012 LIPID GRP CHOL 147 MG/DL 11/29/2012 LIPID GRP RCHOL/HDL 2.72 RATIO 11/29/2012 FREE T4 8409822 FREE T4 1.23 NG/DL 11/29/2012 GFR CALC 6112966 GFR AA >60 ML/MIN 11/29/2012 GFR CALC 9838237 GFR NON-AA >60 ML/MIN 11/29/2012 CHEM 14 0010488 AST 23 U/L 08/07/2012 CHEM 14 3700576 ALT 34 IU/L 08/07/2012 CHEM 14 4786466 BUN 26 MG/DL 08/07/2012 CHEM 14 6179764 ALBUMIN 4.4 GM/DL 08/07/2012 CHEM 14 8229525 CHLORIDE 105 MMOL/L 08/07/2012 CHEM 14 6120688 BILI TOT 0.5 MG/DL 08/07/2012 CHEM 14 5425010 ALK PHOS 79 U/L 08/07/2012 CHEM 14 3050062 SODIUM 140 MMOL/L 08/07/2012 CHEM 14 0424736 CREATININE 0.71 MG/DL 08/07/2012 CHEM 14 4129895 CALCIUM 10.4 MG/DL 08/07/2012 CHEM 14 7594372 POTASSIUM 3.8 MMOL/L 08/07/2012 CHEM 14 9966924 PROT TOT 6.8 GM/DL 08/07/2012 CHEM 14 7199976 GLUCOSE 104 MG/DL 08/07/2012 CHEM 14 6064414 BICARB 27 MMOL/L 08/07/2012 CHEM 14 2647840 ANION GAP 8 MEQ/L 08/07/2012 A1C HPLC 2605391 A1C HPLC 28037-0 5.4 % 08/07/2012 FREE T4 4091168 FREE T4 1.11 NG/DL 08/07/2012 LIPID GRP HDL TEST 50 MG/DL 08/07/2012 LIPID GRP TRIG 127 MG/DL 08/07/2012 LIPID GRP TEST LDL 93 MG/DL 08/07/2012 LIPID GRP CHOL 168 MG/DL 08/07/2012 LIPID GRP RCHOL/HDL 3.36 RATIO 08/07/2012 CBC 3207252 WBC 8.7 10e9/L 08/07/2012 CBC 2432553 RBC 4.67 10e12/L 08/07/2012 CBC 8399482 HGB 14.4 g/dL 08/07/2012 CBC 6345153 HCT DET 42.8 % 08/07/2012 CBC 5257313 MCV 91.6 fL 08/07/2012 CBC 1118845 MCH 30.8 pg 08/07/2012 CBC 1025088 MCHC 33.6 g/dL 08/07/2012 CBC 9537145 PLT 271 10e9/L 08/07/2012 CBC 3183502 MPV 12.3 fL 08/07/2012 CBC 0594650 LARA % 50.6 % 08/07/2012 CBC 8484352 LY % 34.9 % 08/07/2012 CBC 9229076 MON % 9.1 % 08/07/2012 CBC 6266322 EOS % 5.1 % 08/07/2012 CBC 8982428 BASO % 0.3 % 08/07/2012 CBC 0811869 RDW 13.6 % 08/07/2012 CBC 7687022 ABS LARA 4.40 10e9/L 08/07/2012 CBC 3422202 ABS LYMPH 3.04 10e9/L 08/07/2012 CBC 1919857 ABS MONO 0.79 10e9/L 08/07/2012 CBC 1866151 ABS EOS 0.44 10e9/L 08/07/2012 CBC 2648539 ABS BASO 0.03 10e9/L 08/07/2012 CBC 9431040 RDW-SD 44.1 fL 08/07/2012 TSH 8923201 TSH 7.419 uIU/ML 08/07/2012 GFR CALC 0885146 GFR AA >60 ML/MIN 08/07/2012 GFR CALC 2599825 GFR NON-AA >60 ML/MIN 08/07/2012 A1C HPLC 1760192 A1C HPLC 13187-7 5.3 % 02/21/2012 TSH 2592666 TSH 0.832 uIU/ML 02/16/2012 FREE T4 6110068 FREE T4 1.04 NG/DL 02/16/2012 GFR CALC 1388943 GFR AA >60 ML/MIN 02/16/2012 GFR CALC 1664102 GFR NON-AA >60 ML/MIN 02/16/2012 BMP 8828548 GLUCOSE 112 MG/DL 02/16/2012 BMP 1197926 CREATININE 0.65 MG/DL 02/16/2012 BMP 2901511 BUN 17 MG/DL 02/16/2012 BMP 1412658 SODIUM 144 MMOL/L 02/16/2012 BMP 2972519 POTASSIUM 4.0 MMOL/L 02/16/2012 BMP 0227461 CHLORIDE 107 MMOL/L 02/16/2012 BMP 3595270 BICARB 29 MMOL/L 02/16/2012 BMP 7530025 ANION GAP 8 MEQ/L 02/16/2012 BMP 5892740 CALCIUM 9.5 MG/DL 02/16/2012 CBC 7484268 WBC 7.1 10e9/L 02/16/2012 CBC 4973633 RBC 4.47 10e12/L 02/16/2012 CBC 8434685 HGB 13.5 g/dL 02/16/2012 CBC 3153201 HCT DET 40.7 % 02/16/2012 CBC 9892032 MCV 91.1 fL 02/16/2012 CBC 4897829 MCH 30.2 pg 02/16/2012 CBC 1628479 MCHC 33.2 g/dL 02/16/2012 CBC 4990219 PLT 238 10e9/L 02/16/2012 CBC 5420075 MPV 11.4 fL 02/16/2012 CBC 6105867 LARA % 55.7 % 02/16/2012 CBC 5928118 LY % 29.6 % 02/16/2012 CBC 7425526 MON % 9.2 % 02/16/2012 CBC 9189201 EOS % 5.1 % 02/16/2012 CBC 6374554 BASO % 0.4 % 02/16/2012 CBC 7878681 RDW 13.0 % 02/16/2012 CBC 5207298 ABS LARA 3.95 10e9/L 02/16/2012 CBC 0507563 ABS LYMPH 2.10 10e9/L 02/16/2012 CBC 1298527 ABS MONO 0.65 10e9/L 02/16/2012 CBC 7036261 ABS EOS 0.36 10e9/L 02/16/2012 CBC 0190701 ABS BASO 0.03 10e9/L 02/16/2012 CBC 5910865 RDW-SD 42.4 fL 02/16/2012 URINALYSIS NONAUTO W/O SCOPE 23560 Specific [place] 1.015 DateTime(Free Text in Aprima) URINALYSIS NONAUTO W/O SCOPE 19395 PH 7 DateTime(Free Text in Aprima) URINALYSIS NONAUTO W/O SCOPE 03460 GLUCOSE neg DateTime(Free Text in Aprima) URINALYSIS NONAUTO W/O SCOPE 78537 Protein 1+ DateTime(Free Text in Aprima) URINALYSIS NONAUTO W/O SCOPE 65275 Blood neg DateTime(Free Text in Aprima) URINALYSIS NONAUTO W/O SCOPE 09652 Bilirubin neg DateTime(Free Text in Aprima) URINALYSIS NONAUTO W/O SCOPE 83148 Ketones neg DateTime(Free Text in Aprima) URINALYSIS NONAUTO W/O SCOPE 80764 Urobilinogen neg DateTime(Free Text in Aprima) URINALYSIS NONAUTO W/O SCOPE 59925 Nitrite postive DateTime(Free Text in Aprima) URINALYSIS NONAUTO W/O SCOPE 43240 Leukocytes 3+ DateTime(Free Text in Aprima) URINALYSIS NONAUTO W/O SCOPE 22287 Specific [place] 1.030 DateTime(Free Text in Aprima) URINALYSIS NONAUTO W/O SCOPE 89414 PH 6 DateTime(Free Text in Aprima) URINALYSIS NONAUTO W/O SCOPE 58926 GLUCOSE neg DateTime(Free Text in Aprima) URINALYSIS NONAUTO W/O SCOPE 36680 Protein neg DateTime(Free Text in Aprima) URINALYSIS NONAUTO W/O SCOPE 13731 Blood neg DateTime(Free Text in Aprima) URINALYSIS NONAUTO W/O SCOPE 61198 Bilirubin neg DateTime(Free Text in Aprima) URINALYSIS NONAUTO W/O SCOPE 37216 Ketones neg DateTime(Free Text in Aprima) URINALYSIS NONAUTO W/O SCOPE 63182 Urobilinogen neg DateTime(Free Text in Aprima) URINALYSIS NONAUTO W/O SCOPE 59318 Nitrite neg DateTime(Free Text in Aprima) URINALYSIS NONAUTO W/O SCOPE 11096 Leukocytes trace DateTime(Free Text in Aprima) URINALYSIS NONAUTO W/O SCOPE 47849 Specific [place] 1.005 DateTime(Free Text in Aprima) URINALYSIS NONAUTO W/O SCOPE 93475 PH 5 DateTime(Free Text in Aprima) URINALYSIS NONAUTO W/O SCOPE 96942 GLUCOSE neg DateTime(Free Text in Aprima) URINALYSIS NONAUTO W/O SCOPE 76797 Protein neg DateTime(Free Text in Aprima) URINALYSIS NONAUTO W/O SCOPE 53995 Blood neg DateTime(Free Text in Aprima) URINALYSIS NONAUTO W/O SCOPE 44242 Bilirubin neg DateTime(Free Text in Aprima) URINALYSIS NONAUTO W/O SCOPE 45836 Ketones neg DateTime(Free Text in Aprima) URINALYSIS NONAUTO W/O SCOPE 84759 Urobilinogen neg DateTime(Free Text in Aprima) URINALYSIS NONAUTO W/O SCOPE 28042 Nitrite neg DateTime(Free Text in Aprima) URINALYSIS NONAUTO W/O SCOPE 76624 Leukocytes neg DateTime(Free Text in Apr) UA 54960 Specific [place] 1.030 DateTime(Free Text in Apr) UA 75247 PH 5 DateTime(Free Text in Aprima) UA 48012 GLUCOSE neg DateTime(Free Text in Aprima) UA 30425 Protein trace DateTime(Free Text in Aprima) UA 22928 Blood large DateTime(Free Text in Aprima) UA 53013 Bilirubin neg DateTime(Free Text in Apr) UA 96946 Ketones neg DateTime(Free Text in Apr) UA 54322 Urobilinogen neg DateTime(Free Text in Apr) UA 32524 Nitrite neg DateTime(Free Text in Apr) UA 35201 Leukocytes large DateTime(Free Text in ) Review of Systems System Result Effective Dates Constitutional recent illness 05/28/2018 Constitutional No anorexia [...] time 03/14/2017 None Full Exam - General 1995 Constitutional general appearance Overall: well developed 02/20/2017 [...] time 06/07/2016 None Full Exam - General 1995 Constitutional general appearance Overall: well developed 03/14/2016 [...] Codes Date TRIAMCINOLONE ACET INJ NOS CPT-4: J3301 05/28/2018 ROCEPHIN, PER 250 MG CPT- 4: J0696 05/28/2018 ROCEPHIN, PER 250 MG CPT- 4: J0696 01/19/2018 TRIAMCINOLONE ACET INJ NOS CPT-4: J3301 01/19/2018 PPPS, SUBSEQ VISIT CPT- 4: G0439 11/23/2017 TRIAMCINOLONE ACET INJ NOS CPT-4: J3301 06/27/2017 THER/PROPH/DIAG INJ SC/IM CPT-4: 99803 04/20/2017 TRIAMCINOLONE ACET INJ NOS CPT-4: J3301 04/20/2017 TRIAMCINOLONE ACET INJ NOS CPT-4: J3301 03/14/2017 ROCEPHIN, PER 250 MG CPT- 4: J0696 03/14/2017 DESTRUCT PREMALG LESION CPT-4: 31631 12/05/2016 DESTRUCT PREMALG LES 2-14 CPT-4: 68933 12/05/2016 URINALYSIS NONAUTO W/O SCOPE CPT-4: 18951 11/28/2016 ROCEPHIN, PER 250 MG CPT- 4: J0696 11/28/2016 PPPS, SUBSEQ VISIT CPT- 4: G0439 11/07/2016 THER/PROPH/DIAG INJ SC/IM CPT-4: 88872 11/07/2016 TRIAMCINOLONE ACET INJ NOS CPT-4: J3301 11/07/2016 ROCEPHIN, PER 250 MG CPT- 4: J0696 11/07/2016 THER/PROPH/DIAG INJ SC/IM CPT-4: 41646 08/15/2016 TRIAMCINOLONE ACET INJ NOS CPT-4: J3301 08/15/2016 ROCEPHIN, PER 250 MG CPT- 4: J0696 08/15/2016 URINALYSIS NONAUTO W/O SCOPE CPT-4: 70694 05/05/2016 ROCEPHIN, PER 250 MG CPT- 4: J0696 12/07/2015 TRIAMCINOLONE ACET INJ NOS CPT-4: J3301 11/24/2015 ROCEPHIN, PER 250 MG CPT- 4: J0696 11/24/2015 THER/PROPH/DIAG INJ SC/IM CPT-4: 46464 11/24/2015 THER/PROPH/DIAG INJ SC/IM CPT-4: 52847 08/27/2015 KETOROLAC TROMETHAMINE INJ CPT-4: J1885 08/27/2015 PROMETHAZINE HCL INJECTION CPT-4: J2550 08/27/2015 THER/PROPH/DIAG INJ SC/IM CPT-4: 73833 08/10/2015 TRIAMCINOLONE ACET INJ NOS CPT-4: J3301 08/10/2015 ROCEPHIN, PER 250 MG CPT- 4: J0696 08/10/2015 C WOUN RTS (CULTURE OTHR SPECIMN AEROBIC) CPT-4: 98518 07/28/2015 THER/PROPH/DIAG INJ SC/IM CPT-4: 83184 03/19/2015 TRIAMCINOLONE ACET INJ NOS CPT-4: J3301 03/19/2015 ROCEPHIN, PER 250 MG CPT- 4: J0696 06/23/2014 TRIAMCINOLONE ACET INJ NOS CPT-4: J3301 06/23/2014 INJ TRIGGER POINT 1/2 MUSCL CPT-4: 61161 06/05/2014 URINALYSIS NONAUTO W/O SCOPE CPT-4: 52108 02/11/2014 URINALYSIS NONAUTO W/O SCOPE CPT-4: 96126 10/15/2013 ROCEPHIN, PER 250 MG CPT- 4: J0696 09/24/2013 THER/PROPH/DIAG INJ SC/IM CPT-4: 84851 09/19/2013 ROCEPHIN, PER 250 MG CPT- 4: J0696 09/19/2013 PRESCRIP TRANSMIT VIA ERX SY CPT-4: G8553 08/05/2013 ROCEPHIN, PER 250 MG CPT- 4: J0696 07/10/2013 THER/PROPH/DIAG INJ SC/IM CPT-4: 93600 07/10/2013 TRIAMCINOLONE ACET INJ NOS CPT-4: J3301 07/10/2013 PRESCRIP TRANSMIT VIA ERX SY CPT-4: G8553 07/10/2013 [id number] EST. PATIENT, LEVEL III CPT-4: 69657 06/03/2013 PRESCRIP TRANSMIT VIA ERX SY CPT-4: G8553 06/03/2013 PRESCRIP TRANSMIT VIA ERX SY CPT-4: G8553 05/07/2013 ROUTINE VENIPUNCTURE CPT- 4: 01094 04/30/2013 ROUTINE VENIPUNCTURE CPT- 4: 95809 11/29/2012 TRIAMCINOLONE ACET INJ NOS CPT-4: J3301 09/24/2012 THER/PROPH/DIAG INJ SC/IM CPT-4: 62660 09/24/2012 URINALYSIS NONAUTO W/O SCOPE CPT-4: 10484 09/24/2012 PRESCRIP TRANSMIT VIA ERX SY CPT-4: G8553 09/24/2012 PRESCRIP TRANSMIT VIA ERX SY CPT-4: G8553 09/10/2012 PRESCRIP TRANSMIT VIA ERX SY CPT-4: G8553 08/08/2012 ROUTINE VENIPUNCTURE CPT- 4: 08565 08/07/2012 ROUTINE VENIPUNCTURE CPT- 4: 24255 02/16/2012 URINALYSIS NONAUTO W/O SCOPE CPT-4: 50055 02/15/2012 ROCEPHIN, PER 250 MG CPT- 4: J0696 02/15/2012 PRESCRIP TRANSMIT VIA ERX SY CPT-4: G8553 02/15/2012 ROUTINE VENIPUNCTURE CPT- 4: 39333 11/08/2011 ROCEPHIN, PER 250 MG CPT- 4: J0696 07/14/2011 THER/PROPH/DIAG INJ SC/IM CPT-4: 09082 07/14/2011 Influenza Virus Vaccine, Split Virus, >3 Yrs, IM CPT-4: 10755 05/23/2011 IMMUNIZATION ADMIN CPT- 4: 99250 05/23/2011 THER/PROPH/DIAG INJ SC/IM CPT-4: 09785 05/03/2011 ROCEPHIN, PER 250 MG CPT- 4: J0696 05/03/2011 TRIAMCINOLONE ACET INJ NOS CPT-4: J3301 05/03/2011 Vital Signs Date Vital 05/28/2018 Blood Pressure 1: 142/80 Code: 8480-6 Heart Rate 1: 82 bpm Height: SpO2: 97% Temperature: 35.9 (C) / 96.6 (F) Weight: 02/07/2018 Height: Weight: 01/19/2018 Blood Pressure 1: 128/76 Code: 8480-6 BMI: 31.2 Code: 32017-0 Heart Rate 1: 71 bpm Height: 4'11" SpO2: 96% Temperature: 36.5 (C) / 97.7 (F) Weight: 154 lbs 8 oz 11/23/2017 Blood Pressure 1: 146/80 Code: 8480-6 BMI: 31.7 Code: 50208-5 Heart Rate 1: 64 bpm Height: 4'11" SpO2: 97% Waist Measure (cm): 89 cm Weight: 157 lbs 09/12/2017 Blood Pressure 1: 140/86 Code: 8480-6 Heart Rate 1: 62 bpm SpO2: 96% Temperature: 36.6 (C) / 97.8 (F) Weight: 153 lbs 07/25/2017 Blood Pressure 1: 140/72 Code: 8480-6 BMI: 31.3 Code: 48566-0 Heart Rate 1: 76 bpm Height: 4'11" SpO2: 97% Temperature: 37.2 (C) / 99.0 (F) Weight: 155 lbs 06/27/2017 Blood Pressure 1: 144/84 Code: 8480-6 BMI: 31.1 Code: 95985-2 Heart Rate 1: 63 bpm Height: 4'11" SpO2: 99% Temperature: 36.4 (C) / 97.6 (F) Weight: 154 lbs 05/08/2017 Blood Pressure 1: 142/86 Code: 8480-6 BMI: 30.9 Code: 62314-7 Height: 4'11" Temperature: 36.3 (C) / 97.4 (F) Weight: 153 lbs 03/14/2017 Blood Pressure 1: 146/82 Code: 8480-6 BMI: 30.9 Code: 05155-9 Heart Rate 1: 64 bpm Height: 4'11" SpO2: 94% Weight: 153 lbs 02/20/2017 Blood Pressure 1: 142/80 Code: 8480-6 BMI: 30.9 Code: 41220-9 Heart Rate 1: 75 bpm Height: 4'11" SpO2: 97% Weight: 153 lbs 02/06/2017 Blood Pressure 1: 138/90 Code: 8480-6 BMI: 31.5 Code: 69819-1 Heart Rate 1: 61 bpm Height: 4'11" SpO2: 98% Weight: 156 lbs 12/05/2016 Blood Pressure 1: 122/72 Code: 8480-6 Heart Rate 1: 59 bpm Height: 4'11" SpO2: 98% Weight: 11/28/2016 Blood Pressure 1: 154/86 Code: 8480-6 BMI: 31.3 Code: 10520-4 Heart Rate 1: 64 bpm Height: 4'11" SpO2: 94% Temperature: 36.2 (C) / 97.2 (F) Weight: 155 lbs 11/07/2016 Blood Pressure 1: 128/64 Code: 8480-6 BMI: 31.5 Code: 30146-5 Heart Rate 1: 59 bpm Height: 4'11" SpO2: 97% Weight: 156 lbs 08/15/2016 Blood Pressure 1: 110/62 Code: 8480-6 BMI: 31.5 Code: 76483-0 Heart Rate 1: 76 bpm Height: 4'11" SpO2: 97% Weight: 156 lbs 06/07/2016 Blood Pressure 1: 120/80 Code: 8480-6 BMI: 32.9 Code: 83823-3 Heart Rate 1: 63 bpm Height: 4'11" SpO2: 93% Temperature: 36.5 (C) / 97.7 (F) Weight: 163 lbs 03/15/2016 Blood Pressure 1: 90/42 Code: 8480-6 Heart Rate 1: 65 bpm SpO2: 94% 03/14/2016 Blood Pressure 1: 188/110 Code: 8480-6 Heart Rate 1: 68 bpm SpO2: 96% 02/22/2016 Blood Pressure 1: 158/80 Code: 8480-6 BMI: 32.7 Code: 44255-2 Heart Rate 1: 71 bpm Height: 4'11" SpO2: 95% Weight: 162 lbs 12/07/2015 Blood Pressure 1: 140/88 Code: 8480-6 BMI: 32.9 Code: 80797-9 Heart Rate 1: 99 bpm Height: 4'11" SpO2: 94% Temperature: 35.9 (C) / 96.6 (F) Weight: 163 lbs 11/24/2015 Blood Pressure 1: 144/78 Code: 8480-6 BMI: 33.7 Code: 53992-4 Heart Rate 1: 60 bpm Height: 4'11" SpO2: 98% Temperature: 36.6 (C) / 97.9 (F) Weight: 167 lbs 08/27/2015 Blood Pressure 1: 164/82 Code: 8480-6 BMI: 32.3 Code: 57954-7 Heart Rate 1: 60 bpm Height: 4'11" SpO2: 93% Weight: 160 lbs 08/10/2015 Blood Pressure 1: 130/60 Code: 8480-6 BMI: 32.5 Code: 13724-6 Heart Rate 1: 64 bpm Height: 4'11" SpO2: 97% Weight: 161 lbs 07/28/2015 Blood Pressure 1: 124/68 Code: 8480-6 BMI: 32.5 Code: 95139-0 Heart Rate 1: 69 bpm Height: 4'11" SpO2: 97% Weight: 161 lbs 06/11/2015 Blood Pressure 1: 148/80 Code: 8480-6 BMI: 32.9 Code: 30728-9 Heart Rate 1: 70 bpm Height: 4'11" SpO2: 94% Weight: 163 lbs 03/19/2015 Blood Pressure 1: 150/102 Code: 8480-6 Blood Pressure 2: 152/92 Code: 8480-6 BMI: 32.5 Code: 93997-1 Heart Rate 1: 71 bpm Height: 4'11" SpO2: 96% Weight: 161 lbs 01/07/2015 Blood Pressure 1: 126/84 Code: 8480-6 Heart Rate 1: 80 bpm Height: 4'11" 09/23/2014 Blood Pressure 1: 112/72 Code: 8480-6 BMI: 33.9 Code: 93716-2 Heart Rate 1: 72 bpm Height: 4'11" Weight: 168 lbs 08/05/2014 Blood Pressure 1: 140/86 Code: 8480-6 BMI: 33.3 Code: 04019-2 Height: 4'11" Weight: 165 lbs 06/23/2014 Blood Pressure 1: 132/70 Code: 8480-6 BMI: 32.9 Code: 29370-3 Heart Rate 1: 58 bpm Height: 4'11" Temperature: 36.0 (C) / 96.8 (F) Weight: 163 lbs 06/05/2014 Blood Pressure 1: 121/85 Code: 8480-6 BMI: 34.3 Code: 06890-7 Height: 4'11" Weight: 170 lbs 04/03/2014 Blood Pressure 1: 128/80 Code: 8480-6 Heart Rate 1: 88 bpm Weight: 167 lbs 03/07/2014 Blood Pressure 1: 122/82 Code: 8480-6 BMI: 33.9 Code: 75385-2 Heart Rate 1: 68 bpm Height: 4'11" Weight: 168 lbs 11/21/2013 Blood Pressure 1: 100/58 Code: 8480-6 BMI: 33.7 Code: 41076-4 Heart Rate 1: 64 bpm Height: 4'11" Weight: 167 lbs 09/24/2013 Blood Pressure 1: 148/88 Code: 8480-6 Heart Rate 1: 68 bpm Weight: 09/19/2013 Blood Pressure 1: 120/80 Code: 8480-6 BMI: 33.9 Code: 34180-2 Heart Rate 1: 80 bpm Height: 4'11" Temperature: 36.9 (C) / 98.5 (F) Weight: 168 lbs 08/05/2013 Blood Pressure 1: 128/80 Code: 8480-6 BMI: 34.3 Code: 63372-9 Heart Rate 1: 64 bpm Height: 4'11" Temperature: 36.2 (C) / 97.2 (F) Weight: 170 lbs 07/10/2013 Blood Pressure 1: 120/84 Code: 8480-6 BMI: 36.0 Code: 36712-8 Heart Rate 1: 90 bpm Height: 4'11" SpO2: 97% Temperature: 36.8 (C) / 98.2 (F) Weight: 178 lbs 06/03/2013 Blood Pressure 1: 136/94 Code: 8480-6 BMI: 34.7 Code: 76526-7 Heart Rate 1: 68 bpm Height: 4'11" Temperature: 36.7 (C) / 98.0 (F) Weight: 172 lbs 05/13/2013 Blood Pressure 1: 132/90 Code: 8480-6 Heart Rate 1: 68 bpm 05/07/2013 Blood Pressure 1: 168/100 Code: 8480-6 BMI: 34.3 Code: 84912-5 Heart Rate 1: 76 bpm Height: 4'11" Weight: 170 lbs 12/03/2012 Blood Pressure 1: 142/78 Code: 8480-6 BMI: 33.5 Code: 00147-3 Heart Rate 1: 76 bpm Height: 4'11" Weight: 166 lbs 09/24/2012 Blood Pressure 1: 116/70 Code: 8480-6 Heart Rate 1: 68 bpm Respiratory Rate: 16 bpm Temperature: 36.9 (C) / 98.4 (F) Weight: 162 lbs 09/10/2012 Blood Pressure 1: 116/80 Code: 8480-6 BMI: 33.7 Code: 63181-2 Heart Rate 1: 76 bpm Height: 4'11" [...] 1: 149/85 Code: 8480-6 BMI: 32.9 Code: 25003-1 Heart Rate 1: 79 bpm Height: 4'11" Weight: 164 lbs 05/03/2011 Blood Pressure 1: 122/79 Code: 8480-6 BMI: 30.8 Code: 71233-4 Heart Rate 1: 72 bpm Height: 5'1" Weight: 163 lbs 04/25/2011 Blood Pressure 1: 137/84 Code: 8480-6 BMI: 31.0 Code: 17321-1 Heart Rate 1: 63 bpm Height: 5'1" Respiratory Rate: 20 bpm Weight: 164 lbs Functional Status No Functional Status data History of Present Illness Symptom Name Status Result Effective Date Notes sinus congestion Onset and Resolution ongoing 05/28/2018 [...] surg in december. then took trip to [facility] to see mother and has had [...] Quality chronic 08/01/2011 states went shopping on [employer] over night without taking any of medications [...] data Encounters Encounter Performer Location Codes Date ([id number]) 64123 EST. PATIENT, LEVEL III Diagnosis: Acute recurrent maxillary sinusitis[ICD10: J01.01] Shahida Goldman MD, [facility] CPT-4: 15299 05/28/2018 ([id number]) Miscellaneous no charge Diagnosis: Laceration without foreign body, left lower leg, subsequent encounter[ICD10: S81.812D] Diagnosis: Laceration without foreign body, right lower leg, subsequent encounter[ICD10: S81.811D] Isabelle Goldman MD, [facility] CPT-4: 84044 02/08/2018 68332 EST. PATIENT, LEVEL III Diagnosis: Cellulitis of left lower limb[ICD10: L03.116] Diagnosis: Cellulitis of right lower limb[ICD10: L03.115] Diagnosis: Laceration without foreign body, left lower leg, initial encounter[ICD10: S81.812A] Diagnosis: Laceration without foreign body, right lower leg, initial encounter[ICD10: S81.811A] Isabelle Goldman MD, [facility] CPT-4: 29471 02/07/2018 ([id number]) 81330 EST. PATIENT, LEVEL IV Diagnosis: Primary generalized (osteo)arthritis[ICD10: M15.0] Diagnosis: Acute recurrent maxillary sinusitis[ICD10: J01.01] Diagnosis: Low back pain[ICD10: M54.5] Diagnosis: Other allergic rhinitis[ICD10: J30.89] Diagnosis: Obstructive sleep apnea (adult) (pediatric)[ICD10: G47.33] Shahida Goldman MD, [facility] CPT-4: 00440 01/19/2018 20923 EST. PATIENT, LEVEL IV Diagnosis: Diarrhea, unspecified[ICD10: R19.7] Diagnosis: Generalized abdominal pain[ICD10: R10.84] Diagnosis: Other allergic rhinitis[ICD10: J30.89] Diagnosis: Other acute sinusitis[ICD10: J01.80] Isabelle Goldman MD, [facility] CPT- 4: 30066 09/12/2017 18547 EST. PATIENT, LEVEL III Diagnosis: Acute laryngopharyngitis[ICD10: J06.0] Diagnosis: Other allergic rhinitis[ICD10: J30.89] Diagnosis: Cough[ICD10: R05] Diagnosis: Wheezing[ICD10: R06.2] Isabelle Goldman MD, [facility] CPT-4: 06871 07/25/2017 ([id number]) 59673 EST. PATIENT, LEVEL IV Diagnosis: Acute recurrent maxillary sinusitis[ICD10: J01.01] Diagnosis: Cervicalgia[ICD10: M54.2] Diagnosis: Diarrhea, unspecified[ICD10: R19.7] Shahida Goldman MD, [facility] CPT-4: 32658 06/27/2017 ([id number]) 00375 EST. PATIENT, LEVEL III Diagnosis: Chronic maxillary sinusitis[ICD10: J32.0] Diagnosis: Gastro-esophageal reflux disease without esophagitis[ICD10: K21.9] Shahida Goldman MD, [facility] CPT-4: 77605 05/08/2017 ([id number]) 98710 EST. PATIENT, LEVEL III Diagnosis: Acute recurrent maxillary sinusitis[ICD10: J01.01] Shahida Goldman MD, [facility] CPT-4: 81339 03/14/2017 27605 EST. PATIENT, LEVEL IV Diagnosis: Epigastric pain[ICD10: R10.13] Diagnosis: Left upper quadrant pain[ICD10: R10.12] Diagnosis: Left lower quadrant pain[ICD10: R10.32] Isabelle Goldman MD, [facility] CPT-4: 85275 02/20/2017 ([id number]) 77702 EST. PATIENT, LEVEL IV Diagnosis: Generalized anxiety disorder[ICD10: F41.1] Diagnosis: Major depressive disorder, recurrent, moderate[ICD10: F33.1] Diagnosis: Left upper quadrant pain[ICD10: R10.12] Diagnosis: Epigastric pain[ICD10: R10.13] Diagnosis: Actinic keratosis[ICD10: L57.0] Melba Goldman MD, [facility] CPT-4: 89053 02/06/2017 ([id number]) 60189 EST. PATIENT, LEVEL III Diagnosis: Actinic keratosis[ICD10: L57.0] Diagnosis: Major depressive disorder, recurrent, moderate[ICD10: F33.1] Melba Goldman MD, [facility] CPT-4: 50989 12/05/2016 ([id number]) 81547 EST. PATIENT, LEVEL III Diagnosis: Acute recurrent maxillary sinusitis[ICD10: J01.01] Diagnosis: Dysuria[ICD10: R30.0] Shahida Goldman MD, [facility] CPT-4: 71049 11/28/2016 47296 EST. PATIENT, LEVEL IV Diagnosis: Other acute sinusitis[ICD10: J01.80] Diagnosis: Acute laryngopharyngitis[ICD10: J06.0] Diagnosis: Other allergic rhinitis[ICD10: J30.89] Isabelle Goldman MD, [facility] CPT- 4: 33919 08/15/2016 ([id number]) 74108 EST. PATIENT, LEVEL III Diagnosis: Acute recurrent maxillary sinusitis[ICD10: J01.01] Diagnosis: Low back pain[ICD10: M54.5] Shahida Goldman MD, [facility] CPT-4: 17304 06/07/2016 ([id number]) Miscellaneous no charge Diagnosis: Essential (primary) hypertension[ICD10: I10] Shahida Goldman MD, [facility] CPT-4: 48408 03/15/2016 11533 EST. PATIENT, LEVEL IV Diagnosis: Essential (primary) hypertension[ICD10: I10] Diagnosis: Headache[ICD10: R51] Diagnosis: Generalized anxiety disorder[ICD10: F41.1] Shahida Goldman MD, [facility] CPT-4: 97673 03/14/2016 85901 EST. PATIENT, LEVEL III Diagnosis: Laceration without foreign body, left lower leg, initial encounter[ICD10: S81.812A] Isabelle Goldman MD, [facility] CPT-4: 16093 02/22/2016 ([id number]) 62669 EST. PATIENT, LEVEL III Diagnosis: Acute recurrent maxillary sinusitis[ICD10: J01.01] Diagnosis: Cough[ICD10: R05] Diagnosis: Allergic rhinitis due to pollen[ICD10: J30.1] Shahida Goldman MD, [facility] CPT-4: 83455 12/07/2015 ([id number]) 89293 EST. PATIENT, LEVEL IV Diagnosis: Essential (primary) hypertension[ICD10: I10] Diagnosis: Acute recurrent maxillary sinusitis[ICD10: J01.01] Diagnosis: Generalized anxiety disorder[ICD10: F41.1] Diagnosis: Cervicalgia[ICD10: M54.2] Diagnosis: Generalized intra-abdominal and pelvic swelling, mass and lump[ICD10: R19.07] Melba Goldman MD, [facility] CPT-4: 16466 11/24/2015 20030 EST. PATIENT, LEVEL III Diagnosis: Other migraine, intractable, without status migrainosus[ICD10: G43.819] Isabelle Goldman MD, [facility] CPT-4: 27355 08/27/2015 14130 EST. PATIENT, LEVEL III Diagnosis: Acute recurrent maxillary sinusitis[ICD10: J01.01] Diagnosis: Candidal stomatitis[ICD10: B37.0] Diagnosis: Acute laryngopharyngitis[ICD10: J06.0] Isabelle Goldman MD, [facility] CPT- 4: 29153 08/10/2015 38475 EST. PATIENT, LEVEL III Diagnosis: Superficial foreign body of left hand, initial encounter[ICD10: S60.552A] Melba Goldman MD, [facility] CPT-4: 23814 07/28/2015 ([id number]) 13464 EST. PATIENT, LEVEL III Diagnosis: Essential (primary) hypertension[ICD10: I10] Diagnosis: Tinea cruris[ICD10: B35.6] Diagnosis: Abnormal levels of other serum enzymes[ICD10: R74.8] Shahida Goldman MD, [facility] CPT-4: 69010 06/11/2015 ([id number]) 52460 EST. PATIENT, LEVEL IV Diagnosis: ESSENTIAL HYPERTENSION[ICD9: 401.9] Diagnosis: Hypothyroid[ICD9: 244.9] Diagnosis: ALLERGIC RHINITIS[ICD9: 477.9] Diagnosis: Anxiety[ICD9: 300.00] Diagnosis: Sleep apnea[ICD9: 780.57] Shahida Goldman MD, [facility] CPT-4: 88188 03/19/2015 ([id number]) 67730 EST. PATIENT, LEVEL III Diagnosis: ACUTE SINUSITIS[ICD9: 461.9] Celi Goldman MD, [facility] CPT-4: 10223 01/07/2015 ([id number]) 46636 EST. PATIENT, LEVEL III Diagnosis: Conjunctivitis[ICD9: 372.30] Shahida Goldman MD, [facility] CPT-4: 93763 09/23/2014 12196 EST. PATIENT, LEVEL II Diagnosis: Noninfected skin tear of leg[ICD9: 891.0] Shahida Goldman MD, [facility] CPT-4: 02547 08/05/2014 ([id number]) 64216 EST. PATIENT, LEVEL III Diagnosis: Chronic maxillary sinusitis[ICD9: 473.0] Shahida Goldman MD [facility] CPT-4: 66471 06/23/2014 03941 EST. PATIENT, LEVEL II Diagnosis: Headache[ICD9: 784.0] Shahida Goldman MD, [facility] CPT-4: 15222 06/05/2014 ([id number]) 24361 EST. PATIENT, LEVEL III Diagnosis: Abrasion of right leg[ICD9: 916.0] Diagnosis: Headache[ICD9: 784.0] Diagnosis: ALLERGIC RHINITIS[ICD9: 477.9] Shahida Goldman MD, [facility] CPT-4: 47988 04/03/2014 29576 EST. PATIENT, LEVEL II Diagnosis: Tinea corporis[ICD9: 110.5] Diagnosis: Exposure to scabies[ICD9: V01.89] Shahida Goldman MD, [facility] CPT- 4: 53098 03/07/2014 ([id number]) 22320 EST. PATIENT, LEVEL III Diagnosis: ESSENTIAL HYPERTENSION[SNOMED: 92700936] Diagnosis: OSTEOARTH NOS-UNSPEC[ICD9: 715.90] Diagnosis: Lumbago[ICD9: 724.2] Diagnosis: Cervicalgia[ICD9: 723.1] Shahida Goldman MD, [facility] CPT-4: 12790 11/21/2013 ([id number]) 90143 EST. PATIENT, LEVEL III Diagnosis: DEPRESSIVE DISORDER NEC[ICD9: 311] Diagnosis: Paronychia[ICD9: 681.9] Melba Goldman MD, [facility] CPT-4: 66326 09/24/2013 ([id number]) 12098 EST. PATIENT, LEVEL III Diagnosis: Paronychia[ICD9: 681.9] Diagnosis: Cellulitis[ICD9: 682.9] Melba Goldman MD, [facility] CPT-4: 75109 09/19/2013 ([id number]) 04317 EST. PATIENT, LEVEL III Diagnosis: Conjunctivitis[ICD9: 372.30] Diagnosis: Thrush[ICD9: 112.0] Shahida Goldman MD, [facility] CPT-4: 58985 08/05/2013 ([id number]) 16728 EST. PATIENT, LEVEL III Diagnosis: ACUTE MAXILLARY SINUSITIS[ICD9: 461.0] Diagnosis: COUGH[ICD9: 786.2] Diagnosis: Insomnia[ICD9: 780.52] Diagnosis: ESOPHAGEAL REFLUX[ICD9: 530.81] Melba Goldman MD [facility] CPT-4: 62597 07/10/2013 ([id number]) Miscellaneous no charge Diagnosis: ESSENTIAL HYPERTENSION[SNOMED: 27819895] Melba Goldman MD [facility] CPT-4: 68761 05/13/2013 ([id number]) 88375 EST. PATIENT, LEVEL IV Diagnosis: ESSENTIAL HYPERTENSION[SNOMED: 22192070] Diagnosis: HYPOTHYROIDISM[ICD9: 244.9] Diagnosis: OSTEOARTH NOS-UNSPEC[ICD9: 715.90] Melba Goldman MD, [facility] CPT- 4: 25083 05/07/2013 ([id number]) 40136 EST. PATIENT, LEVEL IV Diagnosis: Osteoarthritis[ICD9: 715.90] Diagnosis: Knee pain, bilateral[ICD9: 719.46] Diagnosis: Hip pain[ICD9: 719.45] Melba Goldman MD, [facility] CPT-4: 39050 12/03/2012 ([id number]) 53582 EST. PATIENT, LEVEL III Diagnosis: Thrush[ICD9: 112.0] Melba Goldman MD, [facility] CPT-4: 32373 09/24/2012 ([id number]) 36477 EST. PATIENT, LEVEL IV Diagnosis: ESSENTIAL HYPERTENSION[SNOMED: 82053103] Diagnosis: Thrush[ICD9: 112.0] Diagnosis: Sleep apnea[ICD9: 780.57] Melba Goldman MD, [facility] CPT-4: 26287 09/10/2012 ([id number]) 38814 EST. PATIENT, LEVEL IV Diagnosis: Esophageal reflux[ICD9: 530.81] Diagnosis: Hypothyroid[ICD9: 244.9] Diagnosis: JOINT PAIN-MULT JOINTS[ICD9: 719.49] Diagnosis: ALLERGIC RHINITIS[ICD9: 477.9] Melba Goldman MD, [facility] CPT-4: 76615 08/08/2012 ([id number]) 44105 EST. PATIENT, LEVEL IV Diagnosis: Urinary frequency[ICD9: 788.41] Diagnosis: EDEMA[ICD9: 782.3] Diagnosis: HYPOTHYROIDISM[ICD9: 244.9] Diagnosis: Fatigue[ICD9: 780.79] Melba Goldman MD, [facility] CPT-4: 17111 02/15/2012 ([id number]) 73020 EST. PATIENT, LEVEL IV Diagnosis: Abdominal pain[ICD9: 789.00] Diagnosis: Fatigue[ICD9: 780.79] Diagnosis: Nausea[ICD9: 787.02] Melba Goldman MD, [facility] CPT-4: 70938 11/10/2011 79587 EST. PATIENT, LEVEL IV Diagnosis: ESSENTIAL HYPERTENSION[SNOMED: 57120332] Diagnosis: DIARRHEA[ICD9: 787.91] Diagnosis: DEPRESSIVE DISORDER NEC[ICD9: 311] Diagnosis: Irritable bowel disease[ICD9: 564.1] Melba Goldman MD, [facility] CPT- 4: 22296 08/01/2011 38608 EST. PATIENT, LEVEL III Diagnosis: ACUTE SINUSITIS[ICD9: 461.9] Diagnosis: Cough[ICD9: 786.2] Shahida Goldman MD, [facility] CPT-4: 39735 07/14/2011 88832 EST. PATIENT, LEVEL IV Diagnosis: VACCIN FOR INFLUENZA[ICD9: V04.81] Diagnosis: ESSENTIAL HYPERTENSION[SNOMED: 81840980] Diagnosis: GENERALIZED ANXIETY DISEASE[ICD9: 300.02] Diagnosis: SLEEP DISTURBANCES[ICD9: 780.50] Shahida Goldman MD, [facility] CPT- 4: 09912 05/23/2011 89476 EST. PATIENT, LEVEL III Diagnosis: ACUTE SINUSITIS[ICD9: 461.9] Diagnosis: ALLERGIC RHINITIS[ICD9: 477.9] Diagnosis: Cough[ICD9: 786.2] [facility] CPT-4: 15264 05/03/2011 63102 EST. PATIENT, LEVEL IV Diagnosis: ESSENTIAL HYPERTENSION[SNOMED: 58138424] Diagnosis: DEPRESSIVE DISORDER NEC[ICD9: 311] Diagnosis: Fatigue[ICD9: 780.79] [facility] CPT-4: 34159 04/25/2011 Plan of Care Planned Activity Notes Codes Status Date Visit Plan: Sinusitis - Pt has acute infection - pain in face, maxillary region, Pt informed to use decongestant, RX given to patient, sinus rinses also recommended. Call if symptoms do not show improvement. 05/28/2018 Appointment: [facility]zo [facility]el[phone] (30 min) Complex 05/28/2018 Patient Education: [...] acute concerns. 02/07/2018 Appointment: Isabelle Orozco WPtel: [facility] (15 min) Moderate 02/07/2018 Patient Education: [...] less fatigue 01/19/2018 Appointment: Shahida Manzo WPtel: [address] [place], [place] [phone] (15 min) Moderate 01/19/2018 Patient Education: Patient [...] for health care surrogate. 11/23/2017 Appointment: Isabelle Orozcol: [phone] [facility] [facility] - Annual Wellness Visit 11/23/2017 Patient Education: [...] do not show improvement. 09/12/2017 Appointment: Isabelle Orozcol: [phone] [facility] (15 min) Moderate 09/12/2017 Patient Education: [...] spray. 07/25/2017 Appointment: Isabelle Orozco WPtel: [phone] [facility] (30 min) Complex 07/25/2017 Patient Education: [...] available 06/27/2017 Appointment: Shahida Manzo WPtel: [phone] [phone] [place] (15 min) Moderate 06/27/2017 Patient [...] improving. 05/08/2017 Appointment: Shahida Manzo WPtel: [phone] [phone] (15 min) Moderate 05/08/2017 Patient Education: [...] improvement. 03/14/2017 Appointment: Shahida Manzo WPtel: [phone] [phone] (15 min) Moderate 03/14/2017 Patient Education: Patient Medication Summary Completed 03/14/2017 Appointment: Shahida Manzo WPtel: [phone] [phone] [place] (15 min) Moderate 02/21/2017 Visit [...] improving. 02/20/2017 Appointment: Isabelle Orozco WPtel: [phone] [facility] [place] (30 min) Complex 02/20/2017 Patient [...] on use 02/06/2017 Appointment: Melba Goldman WPtel: [address] [place], [place] [phone] (15 min) Moderate 02/06/2017 Patient Education: Patient [...] patient. 12/05/2016 Appointment: Melba Goldman WPtel: [phone] [facility] Surgical Procedure 12/05/2016 Patient Education: Patient Medication Summary Completed 12/05/2016 Visit Plan: Sinusitis - Pt has acute infection - pain in face, maxillary region, Pt informed to use decongestant, RX given to patient, sinus rinses also recommended. Call if symptoms do not show improvement. Dysuria- culture urine 11/28/2016 Appointment: Shahida Manzo WPtel: [phone] [phone] (15 min) Moderate 11/28/2016 Patient Education: Patient [...] of control. 11/07/2016 Appointment: Isabelle Orozco WPtel: [phone] [facility] [facility] - Annual Wellness Visit 11/07/2016 Patient Education: [...] in the office today 03/14/2016 Appointment: Shahida aMnzo WPtel: [phone] [phone] (15 min) Moderate 03/14/2016 Patient Education: Patient Medication Summary Completed 03/14/2016 Care Plan: COMPLETE CBC AUTOMATED LOINC : 84539-3 Pending 03/14/2016 Visit Plan: Cellulitis - The patient was instructed in appropriate wound care. The patient was instructed to use the antibiotic ointment as per RX. The patient is to call for any change in symptoms, increase in size of the lesion, increase in pain. 02/22/2016 Appointment: Isabelle Orozco WPtel: [phone] [facility] (15 min) Moderate 02/22/2016 Patient Education: [...] dr. dai 11/24/2015 Appointment: [facility] Goldman [facility]el: [phone] (30 min) Complex 11/24/2015 Patient Education: Patient Medication Summary Completed 11/24/2015 Patient Education: Obesity Completed 11/24/2015 Patient Education: Hypertension Completed 11/24/2015 Patient Education: .Cervicalgia Neck Pain Completed 11/24/2015 Care Plan: Referral Order SNOMED-CT : [id number] Ordered 11/24/2015 Visit Plan: Acute Migraine - [...] to monitor 06/11/2015 Appointment: Shahida Manzo WPtel: [phone] (15 min) Moderate 06/11/2015 Patient Education: [...] OFFICE Sleep apnea-patient needs new CPAP-will contact [facility] 03/19/2015 Visit Plan: Hypertension - [...] OFFICE Sleep apnea-patient needs new CPAP-will contact [facility] patient Pt reports that she uses [...] OFFICE Sleep apnea-patient needs new CPAP-will contact [facility] Pt reports that she uses [...] Patient Medication Summary Completed 01/07/2015 Patient Education: [facility] - Saving AutoInj - 18+ - [...] areas dry Exposure to scabies-RX sent to [facility]. 03/07/2014 Appointment: Melba Goldman WPtel: [facility] [place] rash 03/07/2014 Patient Education: Patient Medication [...] change in blood pressure readings at home. Sipoiii-uiorvzllkff-hjbytlgn duragesic patch-appt with Dr Ortiz for pain management 11/21/2013 Appointment: Shahida Manzo WPtel: [phone] Follow up 11/21/2013 Patient Education: Patient Medication Summary Completed 11/21/2013 Patient Education: Hypertension Completed 11/21/2013 Patient Education: .Cervicalgia Neck Pain Completed 11/21/2013 Appointment: Mel[facility] Goldman [facility]Ptel: [phone] Other 11/19/2013 Appointment: Melba Goldman WPtel: [address] [place] [address] Follow up 11/06/2013 Appointment: Melba Goldman WPtel: [address] [place] [address] Lab Draw 10/15/2013 Patient Education: Patient Medication [...] ADD ABILIFY 2MG AT BEDTIME 09/24/2013 Appointment: Shahdia Manzo WPtel: [address] [place] [address] Other 09/24/2013 Patient Education: Patient Medication Summary Completed 09/24/2013 Visit Plan: Paronychia/Cellulitis - continue with oral antibiotics as previously directed, return to clinic as previously directed, call for acute change in symptoms, worsening redness, warmth, discharge. 09/19/2013 Appointment: Melba Goldman WPtel: [address] [place] [address] Other 09/19/2013 Patient Education: Patient Medication Summary Completed 09/19/2013 Visit Plan: Conjunctivitis - rx for eye drops/lube sent electronically to the patient's pharmacy. The patient has been instructed to cleanse affected eye with warm washcloth, then place medication into affected eye four times daily. Thrush-refill nystatin-call if symptoms do not resolve 08/05/2013 Appointment: Shahida Manzo WPtel: [address] [place], [place] [phone] Sick 08/05/2013 Patient Education: Patient Medication Summary [...] improvement. 06/03/2013 Appointment: [phone] Follow up 06/03/2013 Patient Education: Patient Medication Summary Completed 06/03/2013 Patient Education: Hypertension Completed 06/03/2013 Appointment: Mel[facility] Goldman [facility]el[phone] [place] Nurse Visit 05/13/2013 Patient Education: Patient [...] control. 05/07/2013 Appointment: Melba Goldman WPtel: [phone] [facility] Follow up 05/07/2013 Patient Education: Patient Medication Summary Completed 05/07/2013 Patient Education: Hypertension Completed 05/07/2013 Patient Education: Patient Medication Summary Completed 04/30/2013 Patient Education: Hypertension Completed 04/30/2013 Visit Plan: Arthritis- occasionally uncontrolled symptoms- recommend pt to take antiinflammatory as directed for pain control. Use tylenol for break through pain symptoms. 12/03/2012 Appointment: [facility] Goldman [facility]el[phone] Follow up 12/03/2012 Patient Education: Patient Medication [...] resolve 09/24/2012 [phone] Sick 09/24/2012 Patient [...] diflucan 09/10/2012 Appointment: [facility]el[phone] Follow up 09/10/2012 Patient Education: Patient Medication [...] pain symptoms. 08/08/2012 [facility]ment[phone] Follow up 08/08/2012 Patient Education: Patient Medication Summary Completed 08/08/2012 Patient Education: Patient Medication Summary Completed 08/07/2012 Patient Education: Hypertension Completed 08/07/2012 Appointment: Melba Goldman WPtel: [address] [place], [place] [phone] Lab Draw 02/16/2012 Patient Education: Patient Medication [...] Needs labs. 02/15/2012 Appointment: Melba Goldman WPtel: [address] [place], [place] [id number] Other 02/15/2012 Patient Education: Patient Medication Summary Completed 02/15/2012 Visit Plan: Abdominal pain - ultrasound tomorrow AM nothing to eat before the ultrasound from 11pm tonight bland diet. Nausea - worse with fatty foods, recommended low fat/bland diet, call if symptoms worsening. 11/10/2011 Appointment: Melba Goldman WPtel: [address] [place], [place] [phone] Other 11/10/2011 Patient Education: Patient Medication Summary [...] stools. 08/01/2011 Appointment: Melba Goldman WPtel: [phone] [facility] [place] Other 08/01/2011 Patient Education: Patient Medication Summary Completed 08/01/2011 Patient Education: High Blood Pressure: Essential Hypertension Completed 08/01/2011 Visit Plan: Sinusitis - Pt has acute infection - pain in face, maxillary region, Pt informed to use decongestant, RX given to patient, sinus rinses also recommended. Call if symptoms do not show improvement. Cough- tessalon parminder 07/14/2011 Appointment: Shahida Manzo WPtel: [phone] [phone] Other 07/14/2011 Patient Education: Patient Medication [...] office. 05/23/2011 Appointment: Shahida Manzo WPtel: [phone] [phone] [place] Other 05/23/2011 Patient Education: Patient [...] med 05/03/2011 Appointment: Shahida Manzo WPtel: [phone] [phone] [place] Other 05/03/2011 Patient Education: Patient [...] her symptoms. 04/25/2011 Appointment: Shahida Manzo WPtel: [address] [place] [phone] Other 04/25/2011 Patient Education: Patient Medication Summary Completed 04/25/2011 Referral: Matthew Dai Referral Appointment Requested Referral: Matthew Dai Information faxed to Dr. Dai. Their office to book. Patient informed. Completed Instructions Comment trintellix - 10mg one pill daily in [...] efudex - pt instructed on use . DX sinusitis - discussed expected course [...] patient. ADD ABILIFY 2MG AT BEDTIME . Skin tear of left and right [...] OFFICE Sleep apnea-patient needs new CPAP-will contact [facility] T[facility] OFF OF [employer]-TAKE EVERY [...] OFFICE Sleep apnea-patient needs new CPAP-will contact [facility] patient Pt reports that she uses her [...] OFFICE Sleep apnea-patient needs new CPAP-will contact [facility] patient Pt reports that she uses her [...] following acute treatment in clinic today: . Medicare Exam - today we discussed [...] Call if symptoms do not show improvement. RESTART GENTAMICIN EYE DROPS DIRECTED Throw out [...] spray in the nasal steroid allergy spray. Gentamicin nasal spray to [facility] [...] areas dry Exposure to scabies-RX sent to [facility]. rocephin/kenalog . Sinusitis - [...] change in blood pressure readings at home. Mgqioyo-cpezvtqrwlt-yzelxdqn duragesic patch-appt with Dr Ortiz for pain [...] contrast if symptoms worsen-patient sees specialist in [place] and will need MRI before appt. The [...] diet to bulk up the stools. . URI - Pt advised to increase [...] in the nasal steroid allergy spray. . URI - Pt advised to increase [...] symptoms do not show improvement. Dysuria-culture urine Increase Synthroid to 100mcg po daily. Repeat [...]
--- OUTSIDE RECORDS SUMMARY | 2019-03-08 18:22 | XMS REPORT | CCD ---
Author Author [facility] Address [address] [place] [address] Phone Care Team Providers Care Commercial Credit Head Name Role Phone PP Unavailable CCM Unavailable Summary Purpose Interface Exchange Insurance Providers Payer name Policy type / Coverage type Covered constitution party ID Effective Begin Date Effective End Date [employer] Medicare Part B [id number] Unknown Family history Son Diagnosis Age At Onset Crohn's disease Unknown Brother Diagnosis Age At Onset Cardiovascular disease Unknown Mother Diagnosis Age At Onset Hypertension Unknown Father Diagnosis Age At Onset Cardiovascular disease Unknown Social History Social History Element Codes Description Effective Dates Marital status Unknown 04/22/2011 Number of children Unknown 3 1 son -Crohns 04/22/[address]: 875750943 Nonsmoker 04/22/2011 Allergies, Adverse Reactions, Alerts Substance Reaction Codes Entered Date Inactivated Date Status * NO KNOWN FOOD ALLERGIES Unknown 05/19/2011 No Inactive Date Active * NO KNOWN DRUG ALLERGIES Unknown 04/22/2011 No Inactive Date Active Past Medical History Illness Codes Condition Status Onset Date Resolved Date Laceration without foreign body, left lower leg, [...] ICD-9: 891.0 ICD-10: S81.811A Active 02/07/2018 Unknown Acute recurrent maxillary sinusitis ICD-9: 461.0 ICD-10: J01.01 Active 06/06/2016 Unknown Low back pain ICD-9: 724.2 ICD-10: [...] Problems Condition Codes Effective Dates Condition Status Laceration without foreign body, left lower leg, [...] encounter ICD-9: 891.0 ICD-10: S81.811A 02/07/2018 Active Acute recurrent maxillary sinusitis ICD-9: 461.0 ICD-10: J01.01 06/06/2016 Active Low back pain ICD-9: 724.2 ICD-10: [...] Fill Instructions Bystolic 10 mg tablet RxNorm: 977006 TAKE ONE TABLET BY MOUTH DAILY 04/16/2018 09/12/2018 Active hydrocodone 10 mg-acetaminophen 325 mg tablet RxNorm: 787937 Tablet(s) PO TAKE ONE TO TWO TABLETS BY MOUTH EVERY 6 HOURS NEEDED FOR PAIN 03/06/2018 03/20/2018 Inactive trazodone 50 mg tablet RxNorm: 645398 TAKE ONE AND ONE-HALF (1 1/2) TABLET BY MOUTH AT BEDTIME. MAY INCREASE TO 2 TABLETS AT BEDTIME NEEDED 02/23/2018 06/12/2018 Active mupirocin 2 % topical ointment RxNorm: 587902 1 TOP BID 02/09/2018 No Stop Date Active Zofran 4 mg tablet RxNorm: 699138 1 Tablet(s) PO TID as needed 02/08/2018 No Stop Date Active Keflex 500 mg capsule RxNorm: 998424 1 Capsule(s) PO TID 02/07/2018 02/13/2018 Inactive alprazolam 0.25 mg tablet RxNorm: 657558 1 Tablet(s) PO daily as needed 01/24/2018 04/23/2018 Active piroxicam 20 mg capsule RxNorm: 351966 1 Capsule(s) PO daily 01/19/2018 07/17/2018 Active D/C ORDER FOR HCTZ hydrocodone 10 mg-acetaminophen 325 mg tablet RxNorm: 371074 Tablet(s) PO TAKE ONE TO TWO TABLETS BY MOUTH EVERY 6 HOURS NEEDED FOR PAIN 01/19/2018 02/02/2018 Inactive hydrochlorothiazide 25 mg tablet RxNorm: 234571 Tablet(s) TAKE ONE TABLET BY MOUTH DAILY 01/19/2018 01/19/2018 Inactive Kenalog 40 mg/mL suspension for injection RxNorm: 2951414 1 Milliliter(s) Inj 01/19/2018 01/19/2018 Inactive ceftriaxone 500 mg solution for injection RxNorm: 2549158 500 Milligram(s) Inj 01/19/2018 01/19/2018 Inactive Nexium 40 mg capsule,delayed release RxNorm: 317657 TAKE ONE CAPSULE BY MOUTH TWICE A DAY 01/18/2018 04/17/2018 Active Nexium 40 mg capsule,delayed release RxNorm: 352701 TAKE ONE CAPSULE BY MOUTH TWICE A DAY 01/15/2018 04/14/2018 Inactive ciprofloxacin 0.3 % eye drops RxNorm: 047231 2 Drop(s) ophthalmic (eye) Q2H while awake x 2 days, then Q4H x 5 days 11/23/2017 No Stop Date Active Keflex 500 mg capsule RxNorm: 578464 1 Capsule(s) PO TID 11/23/2017 11/29/2017 Inactive hydrocodone 10 mg-acetaminophen 325 mg tablet RxNorm: 529097 Tablet(s) PO TAKE ONE TO TWO TABLETS BY MOUTH EVERY 6 HOURS NEEDED FOR PAIN 10/30/2017 11/13/2017 Inactive Augmentin 500 mg-125 mg tablet RxNorm: 228819 1 Tablet(s) PO TID 10/27/2017 11/05/2017 Inactive alprazolam 0.25 mg tablet RxNorm: 081609 1 Tablet(s) PO daily as needed 10/26/2017 01/22/2018 Inactive trazodone 50 mg tablet RxNorm: 267532 TAKE ONE AND ONE-HALF (1 1/2) TABLET BY MOUTH AT BEDTIME. MAY INCREASE TO 2 TABLETS AT BEDTIME NEEDED 09/25/2017 02/03/2018 Inactive Lexapro 20 mg tablet RxNorm: 373839 TAKE ONE AND ONE-HALF TABLET BY MOUTH DAILY 09/15/2017 09/09/2018 Active Flagyl 500 mg tablet RxNorm: 338950 1 Tablet(s) PO TID 09/12/2017 09/21/2017 Inactive promethazine 25 mg tablet RxNorm: 956455 1 Tablet(s) PO TID as needed nausea and vomitting THIS WILL MAKE YOU SLEEPY 09/12/2017 11/08/2017 Inactive Keflex 500 mg capsule RxNorm: 318659 1 Capsule(s) PO QID 08/25/2017 08/31/2017 Inactive [SAVINGS FOR UNINSURED PATIENTS -- BIN:[id number], PCN: ASPROD1, Group: [id number], ID# [id number], Process claim through [email or web address], for questions: . THIS IS NOT INSURANCE.] alprazolam 0.25 mg tablet RxNorm: 153136 1 Tablet(s) PO daily as needed 07/31/2017 10/27/2017 Inactive prednisone 20 mg tablet RxNorm: 041707 2 Tablet(s) PO daily 07/25/2017 07/29/2017 Inactive Augmentin 500 mg-125 mg tablet RxNorm: 289245 1 Tablet(s) PO TID 07/25/2017 08/03/2017 Inactive trazodone 50 mg tablet RxNorm: 317971 TAKE ONE AND ONE-HALF (1 1/2) TABLET BY MOUTH AT BEDTIME. MAY INCREASE TO 2 TABLETS AT BEDTIME NEEDED 06/30/2017 09/03/2017 Inactive Bystolic 10 mg tablet RxNorm: 630315 TAKE ONE TABLET BY MOUTH DAILY 06/30/2017 2017 Inactive hydrochlorothiazide 25 mg tablet RxNorm: 504766 TAKE ONE TABLET BY MOUTH DAILY 06/30/2017 01/18/2018 Inactive Flagyl 500 mg tablet RxNorm: 383351 1 Tablet(s) PO TID 06/27/2017 07/03/2017 Inactive Phenergan with Codeine Syrup RxNorm: 5-10 Milliliter(s) PO Q6 PRN 06/27/2017 11/15/2017 Inactive Levaquin 500 mg tablet RxNorm: 164885 1 Tablet(s) PO daily 06/27/2017 07/03/2017 Inactive Kenalog 40 mg/mL suspension for injection RxNorm: 0917528 1 Milliliter(s) Inj 06/27/2017 06/27/2017 Inactive Nexium 40 mg capsule,delayed release RxNorm: 613989 1 Capsule(s) PO BID TAKE ONE CAPSULE BY MOUTH BID 05/22/2017 09/18/2017 Inactive Nexium 40 mg capsule,delayed release RxNorm: 822039 1 Capsule(s) PO BID TAKE ONE CAPSULE BY MOUTH BID 05/22/2017 05/21/2017 Inactive hydrocodone 10 mg-acetaminophen 325 mg tablet RxNorm: 978921 Tablet(s) PO TAKE ONE TO TWO TABLETS BY MOUTH EVERY 6 HOURS NEEDED FOR PAIN 05/17/2017 06/15/2017 Inactive Nexium 40 mg capsule,delayed release RxNorm: 433429 Capsule(s) TAKE ONE CAPSULE BY MOUTH BID 05/17/2017 05/21/2017 Inactive alprazolam 0.25 mg tablet RxNorm: 018891 1 Tablet(s) PO daily as needed 05/03/2017 07/01/2017 Inactive Levaquin 500 mg tablet RxNorm: 193164 1 Tablet(s) PO daily 04/20/2017 04/26/2017 Inactive clotrimazole 1 % topical cream RxNorm: 907848 1 Application TOP BID 04/20/2017 11/07/2017 Inactive Kenalog 40 mg/mL suspension for injection RxNorm: 3496876 Milliliter(s) Inj 04/20/2017 04/20/2017 Inactive nystatin 100,000 unit/gram topical powder RxNorm: 346634 1 Gram(s) APPLY TOPICALLY TWO TIMES A DAY 04/10/2017 07/08/2017 Inactive trazodone 50 mg tablet RxNorm: 335930 TAKE ONE AND ONE-HALF (1 1/2) TABLET BY MOUTH AT BEDTIME. MAY INCREASE TO 2 TABLETS AT BEDTIME NEEDED 03/28/2017 06/23/2017 Inactive Augmentin 875 mg-125 mg tablet RxNorm: 937219 1 Tablet(s) PO BID 03/14/2017 03/20/2017 Inactive Kenalog 40 mg/mL suspension for injection RxNorm: 8747219 1 Milliliter(s) Inj 03/14/2017 03/14/2017 Inactive Lexapro 20 mg tablet RxNorm: 743437 1.5 Tablet(s) PO daily 03/08/2017 03/07/2017 Inactive Lexapro 20 mg tablet RxNorm: 950218 1.5 Tablet(s) PO daily 03/08/2017 07/05/2017 Inactive alprazolam 0.25 mg tablet RxNorm: 250859 1 Tablet(s) PO daily as needed 02/23/2017 04/23/2017 Inactive (Response to an electronic controlled substance refill request - RxReferenceNumber: [id number]) Flagyl 500 mg tablet RxNorm: 182401 1 Tablet(s) PO TID 02/20/2017 03/01/2017 Inactive promethazine 25 mg tablet RxNorm: 049575 1 Tablet(s) PO TID as needed nausea 02/20/2017 03/01/2017 Inactive Cipro 500 mg tablet RxNorm: 324743 1 Tablet(s) PO BID 02/20/2017 03/01/2017 Inactive Flagyl 500 mg tablet RxNorm: 790655 1 Tablet(s) PO TID 02/09/2017 02/15/2017 Inactive Trintellix 10 mg tablet RxNorm: 1471565 1 Tablet(s) PO QAM 02/06/2017 03/07/2017 Inactive Efudex 5 % topical cream RxNorm: 817701 1 Application TOP BID use on skin spot on nose 02/06/2017 02/15/2017 Inactive Bystolic 10 mg tablet RxNorm: 959792 TAKE ONE TABLET BY MOUTH DAILY 02/03/2017 06/02/2017 Inactive Imitrex 50 mg tablet RxNorm: 830589 TAKE ONE TABLET BY MOUTH EVERY 8 HOURS NEEDED MAY REPEAT IN 1 HOUR OF INITIAL DOSE. DISCONTINUE FIORICET 12/22/2016 02/19/2017 Inactive Nexium 40 mg capsule,delayed release RxNorm: 573083 TAKE ONE CAPSULE BY MOUTH EVERY DAY 12/21/2016 05/16/2017 Inactive Lexapro 20 mg tablet RxNorm: 382681 Tablet(s) TAKE ONE TABLET BY MOUTH DAILY 12/05/2016 02/05/2017 Inactive Augmentin 875 mg-125 mg tablet RxNorm: 190117 1 Tablet(s) PO BID 11/28/2016 12/04/2016 Inactive ceftriaxone 500 mg solution for injection RxNorm: 7967573 1 Milliliter(s) Inj 11/28/2016 11/28/2016 Inactive hydrocodone 10 mg-acetaminophen 325 mg tablet RxNorm: 314108 Tablet(s) PO TAKE ONE TO TWO TABLETS BY MOUTH EVERY 6 HOURS NEEDED FOR PAIN 11/28/2016 05/16/2017 Inactive (Appended: Controlled substance eRx refill - RxReferenceNumber: [id number]) prednisone 20 mg tablet RxNorm: 856651 2 Tablet(s) PO daily 11/28/2016 12/02/2016 Inactive Synthroid 100 mcg tablet RxNorm: 925245 1 Tablet(s) PO daily 11/21/2016 05/19/2017 Inactive Brand name only! trazodone 50 mg tablet RxNorm: 623297 TAKE 1 AND 1/2 TABLETS EVERY NIGHT AT BEDTIME , MAY INCREASE TO 2 TABLETS AT BEDTIME NEEDED 11/21/2016 02/16/2017 Inactive trazodone 50 mg tablet RxNorm: 650969 Tablet(s) TAKE 1 AND 1/2 TABLETS EVERY NIGHT AT BEDTIME , MAY INCREASE TO 2 TABLETS AT BEDTIME NEEDED 11/21/2016 11/20/2016 Inactive Synthroid 100 mcg tablet RxNorm: 117443 1 Tablet(s) PO daily TAKE ONE TABLET BY MOUTH DAILY 11/08/2016 11/20/2016 Inactive ceftriaxone 500 mg solution for injection RxNorm: 8999838 Inj 11/07/2016 11/07/2016 Inactive Kenalog 40 mg/mL suspension for injection RxNorm: 3363346 Milliliter(s) Inj 11/07/2016 11/07/2016 Inactive Xanax 0.25 mg tablet RxNorm: 256086 1 Tablet(s) PO daily as needed 10/31/2016 05/02/2017 Inactive alprazolam 0.25 mg tablet RxNorm: 564534 1 Tablet(s) PO daily as needed 10/21/2016 12/18/2016 Inactive (Response to an electronic controlled substance refill request - RxReferenceNumber: [id number]) hydrochlorothiazide 25 mg tablet RxNorm: 104563 TAKE ONE TABLET BY MOUTH DAILY 10/11/2016 04/08/2017 Inactive Xanax 0.25 mg tablet RxNorm: 672300 1 Tablet(s) PO daily as needed 08/23/2016 10/19/2016 Inactive Flonase Allergy Relief 50 mcg/actuation nasal spray,suspension RxNorm: 8531291 1 [place] NASAL daily 08/15/2016 No Stop Date Active amoxicillin 500 mg capsule RxNorm: 381830 1 Capsule(s) PO TID 08/15/2016 08/24/2016 Inactive Bystolic 10 mg tablet RxNorm: 384982 TAKE ONE TABLET BY MOUTH DAILY 08/01/2016 12/28/2016 Inactive trazodone 50 mg tablet RxNorm: 145510 TAKE 1 AND 1/2 TABLETS EVERY NIGHT AT BEDTIME , MAY INCREASE TO 2 TABLETS AT BEDTIME NEEDED 07/25/2016 11/11/2016 Inactive alprazolam 0.25 mg tablet RxNorm: 811260 1 Tablet(s) PO daily as needed 07/25/2016 08/22/2016 Inactive (Response to an electronic controlled substance refill request - RxReferenceNumber: [id number]) Imitrex 50 mg tablet RxNorm: 046608 1 Tablet(s) PO Q8 as needed may repeat x1 dose in 1 hour of inital dose. 07/13/2016 No Stop Date Active Lexapro 20 mg tablet RxNorm: 413034 TAKE 1/2 TABLET BY MOUTH DAILY FOR 10 DAYS, THEN TAKE ONE TABLET BY MOUTH DAILY 06/27/2016 11/23/2016 Inactive Synthroid 100 mcg tablet RxNorm: 977615 TAKE ONE TABLET BY MOUTH DAILY 06/20/2016 11/07/2016 Inactive Augmentin 500 mg-125 mg tablet RxNorm: 405688 1 Tablet(s) PO TID 06/07/2016 06/13/2016 Inactive hydrocodone 10 mg-acetaminophen 325 mg tablet RxNorm: 947752 Tablet(s) PO TAKE ONE TO TWO TABLETS BY MOUTH EVERY 6 HOURS NEEDED FOR PAIN 06/07/2016 11/27/2016 Inactive (Appended: Controlled substance eRx refill - RxReferenceNumber: [id number]) hydrochlorothiazide 25 mg tablet RxNorm: 809969 TAKE ONE TABLET BY MOUTH DAILY 03/14/2016 09/09/2016 Inactive Edarbi 40 mg tablet RxNorm: 7601991 1 Tablet(s) PO daily 03/14/2016 06/06/2016 Inactive trazodone 50 mg tablet RxNorm: 670579 Tablet(s) TAKE 1 AND 1/2 TABLET AT BEDTIME. MAY INCREASE TO 2 TABLETS IF NECESSARY 02/25/2016 07/05/2016 Inactive Imitrex 50 mg tablet RxNorm: 512372 1 Tablet(s) PO Q8 as needed may repeat x1 dose in 1 hour of inital dose. 02/25/2016 07/12/2016 Inactive dc fioricet Xanax 0.25 mg tablet RxNorm: 044846 1 Tablet(s) PO daily as needed 02/24/2016 07/21/2016 Inactive mupirocin 2 % topical ointment RxNorm: 854377 1 TOP BID 02/22/2016 11/08/2017 Inactive Bactrim DS 800 mg-160 mg tablet RxNorm: 096339 1 Tablet(s) PO BID 02/22/2016 03/02/2016 Inactive Fioricet 50 mg-325 mg-40 mg tablet RxNorm: 208937 Tablet(s) TAKE ONE TABLET BY MOUTH EVERY 4 HOURS NEEDED FOR headache 02/12/2016 02/24/2016 Inactive (Response to an electronic controlled substance refill request - RxReferenceNumber: [id number]) Fioricet 50 mg-325 mg-40 mg tablet RxNorm: 181503 Tablet(s) TAKE ONE TABLET BY MOUTH EVERY 4 HOURS NEEDED FOR headache 02/12/2016 02/11/2016 Inactive (Response to an electronic controlled substance refill request - RxReferenceNumber: [id number]) Nexium 40 mg capsule,delayed release RxNorm: 672878 TAKE ONE CAPSULE BY MOUTH EVERY DAY 02/01/2016 10/27/2016 Inactive Bystolic 10 mg tablet RxNorm: 139085 Tablet(s) TAKE ONE TABLET BY MOUTH DAILY 01/06/2016 07/03/2016 Inactive Xanax 0.25 mg tablet RxNorm: 730040 1 Tablet(s) PO daily as needed 12/28/2015 02/23/2016 Inactive Levaquin 500 mg tablet RxNorm: 229208 1 Tablet(s) PO daily take a probiotic daily 12/14/2015 02/11/2016 Inactive Levaquin 500 mg tablet RxNorm: 432361 1 Tablet(s) PO daily take a probiotic daily 12/14/2015 12/13/2015 Inactive prednisone 20 mg tablet RxNorm: 931258 1 Tablet(s) PO BID 12/07/2015 12/13/2015 Inactive Augmentin 875 mg-125 mg tablet RxNorm: 269154 1 Tablet(s) PO BID 12/07/2015 12/13/2015 Inactive ceftriaxone 500 mg solution for injection RxNorm: 6636360 Inj 12/07/2015 12/07/2015 Inactive Phenergan with Codeine Syrup RxNorm: 5-10 Milliliter(s) PO Q6 PRN 12/07/2015 06/26/2017 Inactive alprazolam 0.25 mg tablet RxNorm: 554657 1 Tablet(s) PO daily as needed 11/27/2015 12/25/2015 Inactive (Response to an electronic controlled substance refill request - RxReferenceNumber: [id number]) trazodone 50 mg tablet RxNorm: 100654 TAKE 1 AND 1/2 TABLET AT BEDTIME FOR 2 WEEKS, MAY INCREASE TO 2 TABLETS IF NECESSARY AFTER THAT 11/26/2015 02/24/2016 Inactive ceftriaxone 500 mg solution for injection RxNorm: 8812006 Milliliter(s) Inj 11/24/2015 11/24/2015 Inactive prednisone 10 mg tablet RxNorm: 206694 3 Tablet(s) PO daily 11/24/2015 11/28/2015 Inactive cefdinir 300 mg capsule RxNorm: 479932 1 Capsule(s) PO BID 11/24/2015 11/30/2015 Inactive Kenalog 40 mg/mL suspension for injection RxNorm: 1473363 1 Milliliter(s) Inj 11/24/2015 11/24/2015 Inactive Lexapro 20 mg tablet RxNorm: 608037 TAKE 1/2 TABLET BY MOUTH DAILY FOR 10 DAYS, THEN TAKE ONE TABLET BY MOUTH DAILY 11/23/2015 05/20/2016 Inactive Lipitor 10 mg tablet RxNorm: 797969 Tablet(s) TAKE ONE TABLET BY MOUTH EVERY DAY 10/26/2015 11/06/2016 Inactive Norvasc 10 mg tablet RxNorm: 223323 Tablet(s) PO TAKE ONE TABLET BY MOUTH EVERY DAY 10/26/2015 01/18/2018 Inactive hydrochlorothiazide 25 mg tablet RxNorm: 269737 TAKE ONE TABLET BY MOUTH DAILY 10/20/2015 01/17/2016 Inactive promethazine 25 mg/mL injection solution RxNorm: 660133 Milliliter(s) Inj 08/27/2015 08/27/2015 Inactive ketorolac 60 mg/2 mL intramuscular solution RxNorm: 041598 Milliliter(s) IM 08/27/2015 08/27/2015 Inactive alprazolam 0.25 mg tablet RxNorm: 802394 1 Tablet(s) PO daily as needed 08/27/2015 10/25/2017 Inactive (Response to an electronic controlled substance refill request - RxReferenceNumber: [id number]) Lexapro 20 mg tablet RxNorm: 510484 TAKE 1/2 TABLET BY MOUTH DAILY FOR 10 DAYS, THEN TAKE ONE TABLET BY MOUTH DAILY 08/13/2015 11/10/2015 Inactive Flonase 50 mcg/actuation nasal spray,suspension RxNorm: 854933 PLACE 1 SPRAY IN EACH NOSTRIL DAILY 08/13/2015 02/08/2016 Inactive Augmentin 500 mg-125 mg tablet RxNorm: 180895 1 Tablet(s) PO TID 08/10/2015 08/16/2015 Inactive Kenalog 40 mg/mL suspension for injection RxNorm: 4094450 Milliliter(s) Inj 08/10/2015 08/10/2015 Inactive ceftriaxone 500 mg solution for injection RxNorm: 8272435 Inj 08/10/2015 08/10/2015 Inactive nystatin 100,000 unit/mL oral suspension RxNorm: 007471 4 Milliliter(s) PO QID 08/10/2015 08/16/2015 Inactive trazodone 50 mg tablet RxNorm: 773634 TAKE 1 AND 1/2 TABLET AT BEDTIME FOR 2 WEEKS, MAY INCREASE TO 2 TABLETS IF NECESSARY AFTER THAT 07/31/2015 11/25/2015 Inactive ceftriaxone 500 mg solution for injection RxNorm: 8932574 1 Milliliter(s) Inj 07/28/2015 07/28/2015 Inactive Bactrim DS 800 mg-160 mg tablet RxNorm: 326388 1 Tablet(s) PO BID 07/28/2015 08/06/2015 Inactive Bactroban 2 % topical ointment RxNorm: 905181 1 Application TOP BID 07/28/2015 08/06/2015 Inactive Diflucan 150 mg tablet RxNorm: 377025 1 Tablet(s) PO daily 06/11/2015 06/17/2015 Inactive clotrimazole 1 % topical cream RxNorm: 027720 1 Application TOP BID 06/11/2015 07/10/2015 Inactive Bystolic 10 mg tablet RxNorm: 422027 TAKE ONE TABLET BY MOUTH DAILY 06/08/2015 12/04/2015 Inactive alprazolam 0.25 mg tablet RxNorm: 175862 1 Tablet(s) PO daily as needed 06/01/2015 08/25/2015 Inactive (Response to an electronic controlled substance refill request - RxReferenceNumber: [id number]) Fioricet 50 mg-325 mg-40 mg tablet RxNorm: 305802 Tablet(s) TAKE ONE TABLET BY MOUTH EVERY 4 HOURS NEEDED FOR headache 05/28/2015 06/08/2015 Inactive (Response to an electronic controlled substance refill request - RxReferenceNumber: [id number]) trazodone 50 mg tablet RxNorm: 738469 TAKE 1 AND 1/2 TABLET AT BEDTIME FOR 2 WEEKS, MAY INCREASE TO 2 TABLETS IF NECESSARY AFTER THAT 05/25/2015 08/22/2015 Inactive trazodone 50 mg tablet RxNorm: 009465 TAKE 1 AND 1/2 TABLET AT BEDTIME FOR 2 WEEKS, MAY INCREASE TO 2 TABLETS IF NECESSARY AFTER THAT 05/25/2015 05/24/2015 Inactive Synthroid 100 mcg tablet RxNorm: 528383 TAKE ONE TABLET BY MOUTH DAILY 04/23/2015 01/17/2016 Inactive Lipitor 10 mg tablet RxNorm: 595095 TAKE ONE TABLET BY MOUTH EVERY DAY 04/23/2015 10/25/2015 Inactive Kenalog 40 mg/mL suspension for injection RxNorm: 8476334 Milliliter(s) Inj 03/19/2015 03/19/2015 Inactive Lexapro 20 mg tablet RxNorm: 251037 1 Tablet(s) PO daily 03/19/2015 07/16/2015 Inactive 1/2 tab daily x 10 days then 1 tab daily hydrocodone 10 mg-acetaminophen 325 mg tablet RxNorm: 451892 Tablet(s) PO TAKE ONE TO TWO TABLETS BY MOUTH EVERY 6 HOURS NEEDED FOR PAIN 03/19/2015 06/06/2016 Inactive (Appended: Controlled substance eRx refill - RxReferenceNumber: [id number]) Carafate 1 gram tablet RxNorm: 508411 1 Tablet(s) PO AC & HS 03/19/2015 06/16/2015 Inactive dissolve in water and take as a slurry hydrochlorothiazide 25 mg tablet RxNorm: 506022 1 Tablet(s) PO daily 03/12/2015 09/07/2015 Inactive Nexium 40 mg capsule,delayed release RxNorm: 190961 TAKE ONE CAPSULE BY MOUTH EVERY DAY 02/26/2015 12/22/2015 Inactive Cymbalta 60 mg capsule,delayed release RxNorm: 559877 TAKE ONE CAPSULE BY MOUTH TWICE A DAY 02/23/2015 03/18/2015 Inactive alprazolam 0.25 mg tablet RxNorm: 867965 1 Tablet(s) PO daily as needed 02/11/2015 05/10/2015 Inactive (Response to an electronic controlled substance refill request - RxReferenceNumber: [id number]) trazodone 50 mg tablet RxNorm: 392452 TAKE 1 AND 1/2 TABLET AT BEDTIME FOR 2 WEEKS, MAY INCREASE TO 2 TABLETS IF NECESSARY AFTER THAT 01/27/2015 05/24/2015 Inactive Augmentin 500 mg-125 mg tablet RxNorm: 484549 1 Tablet(s) PO TID 01/07/2015 01/13/2015 Inactive gentamicin 0.3 % eye drops RxNorm: 172600 3 Drop(s) OPH QID 01/07/2015 01/13/2015 Inactive [AttnRPh: Saving apply/adjudicate RxGRP:[id number] RxBIN:[id number] RxPCN: ID#:[id number]] scopolamine 1.5 mg transdermal 72 hour patch RxNorm: 817913 1 Patch TD q72 hours 01/07/2015 11/23/2015 Inactive Synthroid 100 mcg tablet RxNorm: 182625 TAKE ONE TABLET BY MOUTH ONCE A DAY 01/06/2015 04/22/2015 Inactive nystatin 100,000 unit/gram topical powder RxNorm: 085198 APPLY TOPICALLY TWO TIMES A DAY 12/18/2014 03/17/2015 Inactive alprazolam 0.25 mg tablet RxNorm: 161822 TAKE ONE TABLET BY MOUTH DAILY NEEDED 10/30/2014 11/28/2014 Inactive (Response to an electronic controlled substance refill request - RxReferenceNumber: [id number]) alprazolam 0.25 mg tablet RxNorm: 460056 Tablet(s) TAKE ONE TABLET BY MOUTH DAILY 10/30/2014 10/29/2014 Inactive (Response to an electronic controlled substance refill request - RxReferenceNumber: [id number]) Lipitor 10 mg tablet RxNorm: 037947 TAKE ONE TABLET BY MOUTH EVERY DAY 10/30/2014 02/26/2015 Inactive alprazolam 0.25 mg tablet RxNorm: 008142 TAKE ONE TABLET BY MOUTH DAILY 10/07/2014 10/29/2014 Inactive (Response to an electronic controlled substance refill request - RxReferenceNumber: [id number]) alprazolam 0.25 mg tablet RxNorm: 344251 TAKE ONE TABLET BY MOUTH DAILY 10/06/2014 10/07/2014 Inactive (Response to an electronic controlled substance refill request - RxReferenceNumber: [id number]) alprazolam 0.25 mg tablet RxNorm: 771531 Tablet(s) TAKE ONE TABLET BY MOUTH EVERY DAY NEEDED 09/30/2014 10/06/2014 Inactive (Response to an electronic controlled substance refill request - RxReferenceNumber: [id number]) Fioricet 50 mg-325 mg-40 mg tablet RxNorm: 463231 Tablet(s) TAKE ONE TABLET BY MOUTH EVERY 4 HOURS NEEDED FOR headache 09/29/2014 10/12/2014 Inactive (Response to an electronic controlled substance refill request - RxReferenceNumber: [id number]) Bystolic 10 mg tablet RxNorm: 348454 1 Tablet(s) PO daily TAKE ONE TABLET BY MOUTH EVERY DAY 09/29/2014 04/26/2015 Inactive Bystolic 5 mg tablet RxNorm: 614691 TAKE 1 AND 1/2 TABLETS ONCE DAILY 09/24/2014 09/23/2014 Inactive Bystolic 5 mg tablet RxNorm: 770835 Tablet(s) TAKE 1 AND 1/2 TABLETS ONCE DAILY 09/24/2014 09/18/2015 Inactive gentamicin 0.3 % eye drops RxNorm: 287816 3 Drop(s) OPH QID 09/23/2014 09/29/2014 Inactive trazodone 50 mg tablet RxNorm: 361539 TAKE 1 AND 1/2 TABLET AT BEDTIME FOR 2 WEEKS, MAY INCREASE TO 2 TABLETS IF NECESSARY AFTER THAT 09/22/2014 01/26/2015 Inactive Fioricet 50 mg-325 mg-40 mg tablet RxNorm: 035082 TAKE ONE TABLET BY MOUTH EVERY 4 HOURS NEEDED FOR PAIN 09/17/2014 09/28/2014 Inactive (Response to an electronic controlled substance refill request - RxReferenceNumber: [id number]) Duragesic 50 mcg/hr transdermal patch RxNorm: 947898 1 TD q72 hours 08/07/2014 01/06/2015 Inactive [SAVINGS FOR UNINSURED PATIENTS -- BIN:[id number], PCN: ASPROD1, Group: [id number], ID# [id number], Process claim through [email or web address], for questions: . THIS IS NOT INSURANCE.] alprazolam 0.25 mg tablet RxNorm: 352828 TAKE ONE TABLET BY MOUTH EVERY DAY NEEDED 07/31/2014 08/29/2014 Inactive (Response to an electronic controlled substance refill request - RxReferenceNumber: [id number]) alprazolam 0.25 mg tablet RxNorm: 494513 1 Tablet(s) PO daily as needed TAKE ONE TABLET BY MOUTH EVERY DAY NEEDED 07/30/2014 08/01/2014 Inactive (Response to an electronic controlled substance refill request - RxReferenceNumber: [id number]) Diflucan 150 mg tablet RxNorm: 115825 1 Tablet(s) PO daily 06/25/2014 07/01/2014 Inactive [SAVINGS FOR UNINSURED PATIENTS -- BIN:[id number], PCN: ASPROD1, Group: [id number], ID# [id number], Process claim through [employer], for questions: . THIS IS NOT INSURANCE.] Kenalog 40 mg/mL suspension for injection RxNorm: 9747345 Milliliter(s) Inj 06/23/2014 06/23/2014 Inactive [SAVINGS FOR UNINSURED PATIENTS -- BIN:[id number], PCN: ASPROD1, Group: [id number], ID# [id number], Process claim through [employer], for questions: . THIS IS NOT INSURANCE.] ceftriaxone 500 mg solution for injection RxNorm: 599899 Inj 06/23/2014 06/23/2014 Inactive [SAVINGS FOR UNINSURED PATIENTS -- BIN:054831, PCN: ASPROD1, Group: [id number], ID# [id number], Process claim through [employer], for questions: . THIS IS NOT INSURANCE.] Levaquin 500 mg tablet RxNorm: 708591 1 Tablet(s) PO daily 06/23/2014 07/13/2014 Inactive [SAVINGS FOR UNINSURED PATIENTS -- BIN:[id number], PCN: ASPROD1, Group: [id number], ID# [id number], Process claim through MedImpact, for questions: . THIS IS NOT INSURANCE.] Duragesic 50 mcg/hr transdermal patch RxNorm: 841429 1 TD q72 hours 06/05/2014 08/06/2014 Inactive [SAVINGS FOR UNINSURED PATIENTS -- BIN:[id number], PCN: ASPROD1, Group: [id number], ID# [id number], Process claim through MedImpact, for questions: . THIS IS NOT INSURANCE.] alprazolam 0.25 mg tablet RxNorm: 004198 1 Tablet(s) PO daily as needed TAKE ONE TABLET BY MOUTH EVERY DAY NEEDED 06/02/2014 07/29/2014 Inactive (Response to an electronic controlled substance refill request - RxReferenceNumber: [id number]) nystatin 100,000 unit/gram topical powder RxNorm: 661229 APPLY TO AFFECTED AREA(S) TWO TIMES A DAY 05/01/2014 06/14/2014 Inactive hydrochlorothiazide 25 mg tablet RxNorm: 303789 TAKE ONE TABLET BY MOUTH EVERY DAY MUST CALL MD FOR APPOINTMENT 04/24/2014 10/20/2014 Inactive alprazolam 0.25 mg tablet RxNorm: 979501 Tablet(s) TAKE ONE TABLET BY MOUTH EVERY DAY NEEDED 04/16/2014 06/02/2014 Inactive (Response to an electronic controlled substance refill request - RxReferenceNumber: [id number]) alprazolam 0.25 mg tablet RxNorm: 822694 TAKE ONE TABLET BY MOUTH EVERY DAY NEEDED 04/16/2014 05/15/2014 Inactive (Response to an electronic controlled substance refill request - RxReferenceNumber: [id number]) alprazolam 0.25 mg tablet RxNorm: 065044 TAKE ONE TABLET BY MOUTH EVERY DAY NEEDED 04/16/2014 05/15/2014 Inactive (Response to an electronic controlled substance refill request - RxReferenceNumber: [id number]) alprazolam 0.25 mg tablet RxNorm: 268232 TAKE ONE TABLET BY MOUTH EVERY DAY NEEDED 04/14/2014 04/16/2014 Inactive (Response to an electronic controlled substance refill request - RxReferenceNumber: [id number]) Lipitor 10 mg tablet RxNorm: 880286 TAKE ONE TABLET BY MOUTH EVERY DAY 04/14/2014 09/10/2014 Inactive alprazolam 0.25 mg tablet RxNorm: 032853 TAKE ONE TABLET BY MOUTH EVERY DAY NEEDED 04/14/2014 04/14/2014 Inactive (Response to an electronic controlled substance refill request - RxReferenceNumber: [id number]) alprazolam 0.25 mg tablet RxNorm: 943627 TAKE ONE TABLET BY MOUTH EVERY DAY NEEDED 04/14/2014 04/15/2014 Inactive (Response to an electronic controlled substance refill request - RxReferenceNumber: [id number]) alprazolam 0.25 mg tablet RxNorm: 770975 TAKE ONE TABLET BY MOUTH EVERY DAY NEEDED 04/14/2014 04/14/2014 Inactive (Response to an electronic controlled substance refill request - RxReferenceNumber: [id number]) nystatin 100,000 unit/gram topical powder RxNorm: 756775 1 Application TOP BID 04/03/2014 07/01/2014 Inactive [SAVINGS FOR UNINSURED PATIENTS -- BIN:[id number], PCN: ASPROD1, Group: [id number], ID# [id number], Process claim through MedImpact, for questions: . THIS IS NOT INSURANCE.] Keflex 500 mg capsule RxNorm: 066719 1 Capsule(s) PO QID 04/03/2014 04/09/2014 Inactive [SAVINGS FOR UNINSURED PATIENTS -- BIN:864232, PCN: ASPROD1, Group: [id number], ID# [id number], Process claim through MedImpact, for questions: . THIS IS NOT INSURANCE.] Synthroid 100 mcg tablet RxNorm: 679455 1 Tablet(s) PO daily TAKE ONE TABLET BY MOUTH EVERY DAY 04/01/2014 01/05/2015 Inactive [SAVINGS FOR UNINSURED PATIENTS -- BIN:290523, PCN: ASPROD1, Group: [id number], ID# [id number], Process claim through MedImpact, for questions: . THIS IS NOT INSURANCE.] Duragesic 50 mcg/hr transdermal patch RxNorm: 427695 1 TD q72 hours 03/24/2014 06/04/2014 Inactive [SAVINGS FOR UNINSURED PATIENTS -- BIN:[id number], PCN: ASPROD1, Group: [id number], ID# [id number], Process claim through MedImpact, for questions: . THIS IS NOT INSURANCE.] trazodone 50 mg tablet RxNorm: 601993 TAKE 1 AND 1/2 TABLET AT BEDTIME FOR 2 WEEKS, MAY INCREASE TO 2 TABLETS IF NECESSARY AFTER THAT 03/18/2014 09/13/2014 Inactive nystatin 100,000 unit/gram topical powder RxNorm: 458964 1 Application TOP BID 03/07/2014 03/16/2014 Inactive [SAVINGS FOR UNINSURED PATIENTS -- BIN:[id number], PCN: ASPROD1, Group: [id number], ID# [id number], Process claim through MedImpact, for questions: . THIS IS NOT INSURANCE.] permethrin 5 % topical cream RxNorm: 347044 1 Application TOP daily 03/07/2014 11/23/2015 Inactive apply head to toe-leave on overnight and wash off in the a.m. May repeat x 1 if needed Diflucan 150 mg tablet RxNorm: 633445 1 Tablet(s) PO daily 03/07/2014 03/09/2014 Inactive [SAVINGS FOR UNINSURED PATIENTS -- BIN:639727, PCN: ASPROD1, Group: [id number], ID# [id number], Process claim through MedImpact, for questions: . THIS IS NOT INSURANCE.] hydrochlorothiazide 25 mg tablet RxNorm: 108920 TAKE ONE TABLET BY MOUTH EVERY DAY MUST CALL MD FOR APPOINTMENT 03/06/2014 04/23/2014 Inactive Zithromax Z-Sergio 250 mg tablet RxNorm: 680058 Tablet(s) PO as directed 03/04/2014 11/23/2015 Inactive [SAVINGS FOR UNINSURED PATIENTS -- BIN:272050, PCN: ASPROD1, Group: [id number], ID# [id number], Process claim through MedImpact, for questions: . THIS IS NOT INSURANCE.] Flonase 50 mcg/actuation nasal spray,suspension RxNorm: 480871 1 [place] NASAL daily 03/04/2014 07/01/2014 Inactive [SAVINGS FOR UNINSURED PATIENTS -- BIN:282894, PCN: ASPROD1, Group: [id number], ID# [id number], Process claim through MedImpact, for questions: . THIS IS NOT INSURANCE.] alprazolam 0.25 mg tablet RxNorm: 094048 1 Tablet(s) PO PRN TAKE ONE TABLET BY MOUTH EVERY DAY NEEDED 02/25/2014 04/14/2014 Inactive (Appended: Controlled substance eRx refill - RxReferenceNumber: [id number]) alprazolam 0.25 mg tablet RxNorm: 561694 TAKE ONE TABLET BY MOUTH EVERY DAY NEEDED 02/21/2014 03/22/2014 Inactive (Response to an electronic controlled substance refill request - RxReferenceNumber: [id number]) alprazolam 0.25 mg tablet RxNorm: 795868 TAKE ONE TABLET BY MOUTH EVERY DAY NEEDED 02/21/2014 03/22/2014 Inactive (Response to an electronic controlled substance refill request - RxReferenceNumber: [id number]) alprazolam 0.25 mg tablet RxNorm: 566007 TAKE ONE TABLET BY MOUTH EVERY DAY NEEDED 02/18/2014 03/19/2014 Inactive (Response to an electronic controlled substance refill request - RxReferenceNumber: [id number]) Cymbalta 60 mg capsule,delayed release RxNorm: 854475 TAKE ONE CAPSULE BY MOUTH TWICE A DAY 02/18/2014 01/13/2015 Inactive Nexium 40 mg capsule,delayed release RxNorm: 708147 TAKE ONE CAPSULE BY MOUTH EVERY DAY 02/18/2014 01/13/2015 Inactive Bactrim DS 800 mg-160 mg tablet RxNorm: 920170 1 Tablet(s) PO BID 02/13/2014 02/19/2014 Inactive probiotic while one antibiotic Bactrim DS 800 mg-160 mg tablet RxNorm: 985655 1 Tablet(s) PO BID 02/13/2014 02/12/2014 Inactive hydrocodone 10 mg-acetaminophen 325 mg tablet RxNorm: 770379 Tablet(s) PO TAKE ONE TO TWO TABLETS BY MOUTH EVERY 6 HOURS NEEDED FOR PAIN 02/06/2014 03/18/2015 Inactive (Appended: Controlled substance eRx refill - RxReferenceNumber: [id number]) Abilify 2 mg tablet RxNorm: 399081 Tablet(s) PO TAKE ONE TABLET BY MOUTH EVERY NIGHT AT BEDTIME 02/03/2014 03/19/2015 Inactive Duragesic 50 mcg/hr transdermal patch RxNorm: 328959 1 TD q72 hours 01/14/2014 03/23/2014 Inactive alprazolam 0.25 mg tablet RxNorm: 352318 1 Tablet(s) PO QDAY PRN 01/14/2014 02/12/2014 Inactive alprazolam 0.25 mg tablet RxNorm: 859007 Tablet(s) PO TAKE ONE TABLET BY MOUTH EVERY DAY NEEDED 01/14/2014 02/24/2014 Inactive (Appended: Controlled substance eRx refill - RxReferenceNumber: [id number]) Lipitor 10 mg tablet RxNorm: 446207 Tablet(s) PO TAKE ONE TABLET BY MOUTH EVERY DAY 01/14/2014 04/13/2014 Inactive Synthroid 100 mcg tablet RxNorm: 039151 Tablet(s) PO TAKE ONE TABLET BY MOUTH EVERY DAY 2013 03/31/2014 Inactive Fioricet 50 mg-325 mg-40 mg tablet RxNorm: 415507 Tablet(s) PO TAKE ONE TABLET BY MOUTH EVERY 4 HOURS NEEDED FOR PAIN 11/27/2013 09/17/2014 Inactive Fioricet 50 mg-325 mg-40 mg tablet RxNorm: 147981 Tablet(s) PO TAKE ONE TABLET BY MOUTH EVERY 4 HOURS NEEDED FOR PAIN 11/25/2013 11/26/2013 Inactive Zithromax Z-Sergio 250 mg tablet RxNorm: 052044 Tablet(s) PO as directed 11/11/2013 01/13/2014 Inactive Bystolic 10 mg tablet RxNorm: 080374 Tablet(s) PO TAKE ONE TABLET BY MOUTH EVERY DAY 10/21/2013 09/28/2014 Inactive Abilify 2 mg tablet RxNorm: 481426 1 Tablet(s) PO QHS 09/25/2013 01/22/2014 Inactive Synthroid 100 mcg tablet RxNorm: 255017 Tablet(s) PO TAKE ONE TABLET BY MOUTH EVERY DAY 09/24/2013 12/25/2013 Inactive Abilify 2 mg tablet RxNorm: 322776 1 Tablet(s) PO QHS 09/24/2013 09/24/2013 Inactive Rocephin 500 mg solution for injection RxNorm: 079250 1ml Milliliter(s) Inj 09/24/2013 09/24/2013 Inactive Rocephin 500 mg solution for injection RxNorm: 310688 1 Milliliter(s) Inj 09/19/2013 09/19/2013 Inactive Bystolic 5 mg tablet RxNorm: 283375 1 1/2 Tablet(s) PO daily 09/17/2013 03/15/2014 Inactive 1 1/2 daily may have 90 day if cheaper Bystolic 5 mg tablet RxNorm: 308397 1 1/2 Tablet(s) PO daily 09/17/2013 09/16/2013 Inactive 1 1/2 daily Lipitor 10 mg tablet RxNorm: 503247 Tablet(s) PO TAKE ONE TABLET BY MOUTH EVERY DAY 09/12/2013 01/13/2014 Inactive hydrocodone 10 mg-acetaminophen 325 mg tablet RxNorm: 384260 Tablet(s) PO TAKE ONE TO TWO TABLETS BY MOUTH EVERY 6 HOURS NEEDED FOR PAIN 09/09/2013 10/29/2017 Inactive (Appended: Controlled substance eRx refill - RxReferenceNumber: [id number]) hydrocodone 10 mg-acetaminophen 325 mg tablet RxNorm: 925202 1 Tablet(s) PO Q6 PRN 09/09/2013 02/06/2014 Inactive hydrocodone 10 mg-acetaminophen 325 mg tablet RxNorm: 680865 Tablet(s) PO TAKE ONE TO TWO TABLETS BY MOUTH EVERY 6 HOURS NEEDED FOR PAIN 09/06/2013 10/29/2017 Inactive (Appended: Controlled substance eRx refill - RxReferenceNumber: [id number]) Norvasc 10 mg tablet RxNorm: 709072 Tablet(s) PO TAKE ONE TABLET BY MOUTH EVERY DAY 09/05/2013 10/25/2015 Inactive trazodone 50 mg tablet RxNorm: 634986 1 1/2 Tablet(s) PO QHS 09/03/2013 03/17/2014 Inactive 75q hs x 2 week may increase to 100mg if nec after that nystatin 100,000 unit/mL oral suspension RxNorm: 479508 6 Milliliter(s) PO QID 08/06/2013 08/15/2013 Inactive Flonase 50 mcg/actuation nasal spray,suspension RxNorm: 707223 2 [place] NASAL daily 08/06/2013 03/03/2014 Inactive nystatin 100,000 unit/mL oral suspension RxNorm: 284418 6 Unit(s) PO QID 08/05/2013 08/05/2013 Inactive Phenergan with Codeine Syrup RxNorm: 5 Milliliter(s) PO Q4 PRN 08/05/2013 12/02/2013 Inactive 8 ounces alprazolam 0.25 mg tablet RxNorm: 805746 1 Tablet(s) PO QDAY PRN 07/29/2013 01/14/2014 Inactive Diflucan 150 mg tablet RxNorm: 941133 1 Tablet(s) PO daily 07/24/2013 07/26/2013 Inactive hydrochlorothiazide 25 mg tablet RxNorm: 063463 Tablet(s) PO TAKE ONE TABLET BY MOUTH EVERY DAY MUST CALL MD FOR APPOINTMENT 07/19/2013 03/05/2014 Inactive Phenergan with Codeine Syrup RxNorm: 10 Milliliter(s) PO Q4 PRN 07/10/2013 08/04/2013 Inactive 8 ounces Rocephin 500 mg solution for injection RxNorm: 060649 1 Inj 07/10/2013 07/10/2013 Inactive cefdinir 300 mg capsule RxNorm: 470156 1 Capsule(s) PO BID 07/10/2013 07/16/2013 Inactive prednisone 10 mg tablet RxNorm: 246750 3 Tablet(s) PO daily 07/10/2013 07/14/2013 Inactive Carafate 100 mg/mL oral suspension RxNorm: 309934 10 Milliliter(s) PO Q6 PRN pt to take carafate 10mL every 6 hours as needed. 07/10/2013 08/05/2014 Inactive Kenalog 40 mg/mL suspension for injection RxNorm: 6154083 1 Milliliter(s) Inj 07/10/2013 07/10/2013 Inactive trazodone 50 mg tablet RxNorm: 846964 1 Tablet(s) PO QHS 07/10/2013 09/02/2013 Inactive sulfamethoxazole 800 mg-trimethoprim 160 mg tablet RxNorm: 181793 1 Tablet(s) PO BID 06/03/2013 06/12/2013 Inactive Synthroid 125 mcg tablet RxNorm: 302295 1 Tablet(s) PO daily 05/07/2013 09/23/2013 Inactive Bystolic 10 mg tablet RxNorm: 676974 1.5 Tablet(s) PO daily 05/07/2013 09/03/2013 Inactive Voltaren 1 % Topical Gel RxNorm: 808787 4 Gram(s) TOP QID apply 4 grams to knees, 2 grams to hands and ankles four times daily. 05/07/2013 09/03/2013 Inactive hydrocodone 10 mg-acetaminophen 325 mg tablet RxNorm: 160649 1 Tablet(s) PO Q6 PRN 04/23/2013 09/09/2013 Inactive Norvasc 10 mg tablet RxNorm: 889262 Tablet(s) PO TAKE ONE TABLET BY MOUTH EVERY DAY 04/23/2013 09/04/2013 Inactive alprazolam 0.25 mg tablet RxNorm: 305015 1 Tablet(s) PO QDAY PRN 03/25/2013 07/22/2013 Inactive Bystolic 10 mg tablet RxNorm: 569962 1 Tablet(s) PO daily TAKE ONE TABLET BY MOUTH EVERY DAY 03/25/2013 05/06/2013 Inactive zolpidem 10 mg tablet RxNorm: 348749 1 Tablet(s) PO HS PRN 03/25/2013 07/09/2013 Inactive gentamicin 0.3 % Eye Drops RxNorm: 2566475 3 Drop(s) OPH QID three gtts to each eye QID x 7 days 03/11/2013 03/10/2013 Inactive gentamicin 0.3 % eye drops RxNorm: 365739 3 Drop(s) OPH QID three gtts to each eye QID x 7 days 03/11/2013 03/17/2013 Inactive Nexium 40 mg capsule,delayed release RxNorm: 833953 Capsule(s) PO TAKE ONE CAPSULE BY MOUTH EVERY DAY 02/15/2013 02/17/2014 Inactive Cymbalta 60 mg capsule,delayed release RxNorm: 567453 Capsule(s) PO TAKE ONE CAPSULE BY MOUTH TWICE A DAY 02/15/2013 02/17/2014 Inactive hydrocodone 10 mg-acetaminophen 325 mg tablet RxNorm: 7934851 1 Tablet(s) PO Q6 PRN 01/22/2013 04/22/2013 Inactive Lipitor 10 mg tablet RxNorm: 761316 Tablet(s) PO TAKE ONE TABLET BY MOUTH EVERY DAY 01/07/2013 09/11/2013 Inactive Cymbalta 60 mg capsule,delayed release RxNorm: 461624 Capsule(s) PO TAKE ONE CAPSULE BY MOUTH TWICE A DAY 01/02/2013 02/14/2013 Inactive Synthroid 100 mcg tablet RxNorm: 032851 1 Tablet(s) PO 12/03/2012 05/06/2013 Inactive Enablex 7.5 mg tablet,extended release RxNorm: 683626 1 Tablet(s) PO daily 11/28/2012 11/27/2012 Inactive Enablex 7.5 mg tablet,extended release RxNorm: 006948 1 Tablet(s) PO daily 11/28/2012 11/28/2012 Inactive scopolamine 1.5 mg 72 hr Transderm Patch RxNorm: 293718 1 Milligram(s) TD q72 hours 11/26/2012 05/06/2013 Inactive hydrochlorothiazide 25 mg tablet RxNorm: 923134 Tablet(s) PO TAKE ONE TABLET BY MOUTH EVERY DAY MUST CALL MD FOR APPOINTMENT 11/24/2012 07/18/2013 Inactive Cymbalta 60 mg capsule,delayed release RxNorm: 515080 Capsule(s) PO TAKE ONE CAPSULE BY MOUTH TWICE A DAY 10/26/2012 01/01/2013 Inactive Bystolic 10 mg tablet RxNorm: 114424 Tablet(s) PO TAKE ONE TABLET BY MOUTH EVERY DAY 10/12/2012 03/25/2013 Inactive zolpidem 10 mg tablet RxNorm: 502703 1 Tablet(s) PO HS PRN 10/02/2012 01/29/2013 Inactive alprazolam 0.25 mg tablet RxNorm: 501834 1 Tablet(s) PO QDAY PRN 10/02/2012 01/29/2013 Inactive Kenalog 40 mg/mL Susp for Injection RxNorm: 6268810 1 Milliliter(s) Inj 09/24/2012 09/24/2012 Inactive Diflucan 150 mg tablet RxNorm: 531481 1 Tablet(s) PO daily 09/24/2012 09/30/2012 Inactive acyclovir 400 mg tablet RxNorm: 032182 1 Tablet(s) PO QID 09/24/2012 10/08/2012 Inactive Cipro 500 mg tablet RxNorm: 302787 1 Tablet(s) PO BID 09/24/2012 09/30/2012 Inactive Tamiflu 75 mg capsule RxNorm: 208393 1 Capsule(s) PO BID 09/17/2012 09/16/2012 Inactive Tamiflu 75 mg capsule RxNorm: 495652 1 Capsule(s) PO BID 09/17/2012 09/16/2012 Inactive Tamiflu 75 mg capsule RxNorm: 769311 1 Capsule(s) PO BID please disregard order for #14 09/17/2012 09/21/2012 Inactive fluconazole 150 mg tablet RxNorm: 172344 1 Tablet(s) PO daily 09/10/2012 09/13/2012 Inactive ketoconazole 2 % Topical Cream RxNorm: 986979 Application TOP BID apply to affected area BID until gone 08/31/2012 11/01/2017 Inactive Norvasc 10 mg tablet RxNorm: 036082 Tablet(s) PO TAKE ONE TABLET BY MOUTH EVERY DAY 08/29/2012 04/22/2013 Inactive Cipro 500 mg tablet RxNorm: 446122 1 Tablet(s) PO BID 08/17/2012 08/26/2012 Inactive Flagyl 500 mg tablet RxNorm: 956825 1 Tablet(s) PO TID 08/17/2012 08/23/2012 Inactive Cipro 500 mg tablet RxNorm: 309845 1 Tablet(s) PO BID 08/17/2012 08/16/2012 Inactive zolpidem 10 mg tablet RxNorm: 187856 1 Tablet(s) PO HS PRN 08/17/2012 09/15/2012 Inactive Flagyl 500 mg tablet RxNorm: 462470 1 Tablet(s) PO TID 08/17/2012 08/16/2012 Inactive alprazolam 0.25 mg tablet RxNorm: 751684 1 Tablet(s) PO QDAY PRN 08/17/2012 09/15/2012 Inactive Belle Allergy 180 mg tablet RxNorm: 026403 1 Tablet(s) PO daily 08/08/2012 02/03/2013 Inactive hydrochlorothiazide 25 mg tablet RxNorm: 466217 1/2 Tablet(s) PO daily 08/08/2012 11/05/2012 Inactive needs appt Carafate 1 gram tablet RxNorm: 765056 1 Tablet(s) PO QID mix with 10 cc water and dissolve into slurry 08/08/2012 08/21/2012 Inactive hydrocodone 10 mg-acetaminophen 325 mg tablet RxNorm: 8604987 1 Tablet(s) PO Q6 PRN 08/08/2012 01/21/2013 Inactive Synthroid 100 mcg tablet RxNorm: 591826 1 Tablet(s) PO 08/08/2012 12/02/2012 Inactive Cymbalta 60 mg capsule,delayed release RxNorm: 439688 Capsule(s) PO 07/23/2012 10/25/2012 Inactive TAKE ONE CAPSULE BY MOUTH TWICE A DAY Nexium 40 mg capsule,delayed release RxNorm: 291954 Capsule(s) PO 06/20/2012 02/14/2013 Inactive TAKE ONE CAPSULE BY MOUTH EVERY DAY Lipitor 10 mg tablet RxNorm: 288550 Tablet(s) PO 06/20/2012 01/06/2013 Inactive TAKE ONE TABLET BY MOUTH EVERY DAY hydrochlorothiazide 25 mg tablet RxNorm: 508101 1 Tablet(s) PO daily 06/19/2012 08/07/2012 Inactive needs appt alprazolam 0.25 mg tablet RxNorm: 550587 1 Tablet(s) PO QDAY PRN 06/05/2012 07/04/2012 Inactive zolpidem 10 mg tablet RxNorm: 935918 1 Tablet(s) PO HS PRN 06/05/2012 07/04/2012 Inactive zolpidem 10 mg tablet RxNorm: 658345 1 Tablet(s) PO HS PRN 04/16/2012 05/15/2012 Inactive alprazolam 0.25 mg tablet RxNorm: 165873 1 Tablet(s) PO QDAY PRN 04/16/2012 05/15/2012 Inactive Cymbalta 60 mg capsule,delayed release RxNorm: 591739 1 Capsule(s) PO BID 03/22/2012 07/19/2012 Inactive Fioricet 50 mg-325 mg-40 mg tablet RxNorm: 659254 1 Tablet(s) PO Q4 PRN 03/22/2012 11/24/2013 Inactive Bystolic 10 mg tablet RxNorm: 428161 Tablet(s) PO 03/22/2012 10/11/2012 Inactive TAKE ONE TABLET BY MOUTH EVERY DAY potassium chloride ER 10 mEq Tab RxNorm: 671701 1 Tablet(s) PO daily 02/24/2012 03/01/2012 Inactive Lasix 20 mg Tab RxNorm: 620231 1 Tablet(s) PO daily 02/22/2012 02/21/2012 Inactive KCL 10 meq RxNorm: 1 PO daily 02/22/2012 02/21/2012 Inactive potassium chloride ER 10 mEq Tab RxNorm: 532877 1 Tablet(s) PO daily 02/22/2012 02/21/2012 Inactive Lasix 20 mg Tab RxNorm: 409529 1 Tablet(s) PO daily 02/22/2012 02/28/2012 Inactive KCL 10 meq RxNorm: 1 PO daily 02/22/2012 02/22/2012 Inactive potassium chloride ER 10 mEq Tab RxNorm: 358590 1 Tablet(s) PO daily 02/22/2012 02/23/2012 Inactive Rocephin 500 mg Solution for Injection RxNorm: 815332 Inj 02/15/2012 02/15/2012 Inactive Nexium 40 mg capsule,delayed release RxNorm: 964302 1 Capsule(s) PO daily 02/15/2012 No Stop Date Active Bystolic 10 mg Tab RxNorm: 912837 1 Tablet(s) PO daily 02/15/2012 08/12/2012 Inactive alprazolam 0.25 mg tablet RxNorm: 098999 1 Tablet(s) PO QDAY PRN 01/31/2012 02/29/2012 Inactive zolpidem 10 mg tablet RxNorm: 478351 1 Tablet(s) PO HS PRN 01/31/2012 02/29/2012 Inactive alprazolam 0.25 mg Tab RxNorm: 724077 1 Tablet(s) PO QDAY PRN 12/16/2011 01/14/2012 Inactive zolpidem 10 mg Tab RxNorm: 123782 1 Tablet(s) PO HS PRN 12/16/2011 01/14/2012 Inactive Norvasc 10 mg tablet RxNorm: 918413 1 Tablet(s) PO daily 12/02/2011 02/21/2012 Inactive Lipitor 10 mg tablet RxNorm: 594247 1 Tablet(s) PO daily 11/16/2011 05/13/2012 Inactive zolpidem 10 mg Tab RxNorm: 856371 1 Tablet(s) PO HS PRN 10/26/2011 12/15/2011 Inactive alprazolam 0.25 mg Tab RxNorm: 374624 1 Tablet(s) PO QDAY PRN 10/26/2011 12/15/2011 Inactive hydrochlorothiazide 25 mg tablet RxNorm: 339514 1 Tablet(s) PO daily 09/05/2011 03/02/2012 Inactive Synthroid 75 mcg tablet RxNorm: 326032 1 Tablet(s) PO daily 08/01/2011 02/26/2012 Inactive Abilify 2 mg Tab RxNorm: 218725 1 Tablet(s) PO QHS 08/01/2011 09/10/2012 Inactive dicyclomine 10 mg Cap RxNorm: 876797 1 Capsule(s) PO TID 08/01/2011 10/29/2011 Inactive alprazolam 0.25 mg Tab RxNorm: 388970 1 Tablet(s) PO QDAY PRN 07/26/2011 10/25/2011 Inactive Fioricet 50 mg-325 mg-40 mg tablet RxNorm: 059877 1 Tablet(s) PO Q4 PRN 07/14/2011 03/21/2012 Inactive Rocephin 500 mg Solution for Injection RxNorm: 005194 1 Milliliter(s) Inj 07/14/2011 08/01/2011 Inactive Nexium 40 mg Capsule, delayed release RxNorm: 885230 1 Capsule(s) PO daily 05/23/2011 10/06/2011 Inactive Bystolic 10 mg tablet RxNorm: 134471 1 Tablet(s) PO daily 05/23/2011 11/18/2011 Inactive Bystolic 10 mg Tab RxNorm: 674491 1 Tablet(s) PO daily 05/23/2011 05/22/2011 Inactive alprazolam 0.25 mg Tab RxNorm: 626096 1 Tablet(s) PO QDAY PRN 05/23/2011 07/25/2011 Inactive Influenza Virus Vaccine 0.5 mL RxNorm: IM 05/23/2011 05/23/2011 Inactive zolpidem 10 mg Tab RxNorm: 300561 1 Tablet(s) PO HS PRN 05/23/2011 10/25/2011 Inactive Rocephin 500 mg Solution for Injection RxNorm: 306679 1 Milliliter(s) Inj 05/03/2011 07/14/2011 Inactive Kenalog 40 mg/mL Susp for Injection RxNorm: 0322083 1 Milliliter(s) Inj 05/03/2011 07/14/2011 Inactive Bactrim DS 800 mg-160 mg Tab RxNorm: 715035 1 Tablet(s) PO BID 05/03/2011 08/01/2011 Inactive Bystolic 10 mg tablet RxNorm: 859864 1 Tablet(s) PO daily No Start Date Active Flonase 50 mcg/actuation nasal spray,suspension RxNorm: 7951768 2 [place] NASAL daily No Start Date 08/05/2013 Inactive Levaquin 500 mg tablet RxNorm: 528620 Tablet(s) PO No Start Date 04/19/2017 Inactive Duragesic 50 mcg/hr transdermal patch RxNorm: 735064 1 TD q72 hours No Start Date 01/13/2014 Inactive Vesicare 5 mg tablet RxNorm: 090483 1 Tablet(s) PO daily No Start Date 01/06/2015 Inactive Celebrex 200 mg capsule RxNorm: 275892 1 Capsule(s) PO daily No Start Date 04/02/2014 Inactive zolpidem 10 mg Tab RxNorm: 428178 1 Tablet(s) PO HS PRN No Start Date 05/22/2011 Inactive Zyrtec 10 mg Tab RxNorm: 5890332 1 Tablet(s) PO daily No Start Date 08/08/2012 Inactive Flonase 50 mcg/actuation nasal spray,suspension RxNorm: 3380101 1 [place] NASAL daily No Start Date 11/07/2017 Inactive 1 spray to each nostril daily Nexium 40 mg Cap RxNorm: 734403 1 Capsule(s) PO daily No Start Date 05/22/2011 Inactive ketoconazole 2 % Topical Cream RxNorm: 558571 Application TOP BID apply to affected area BID until gone No Start Date 08/30/2012 Inactive aspirin 81 mg tablet RxNorm: 852079 1 Tablet(s) PO daily No Start Date 11/13/2017 Inactive Cymbalta 60 mg capsule,delayed release RxNorm: 816705 1 Capsule(s) PO BID No Start Date 03/21/2012 Inactive alprazolam 0.25 mg Tab RxNorm: 654044 1 Tablet(s) PO QDAY PRN No Start Date 05/22/2011 Inactive baclofen 10 mg tablet RxNorm: 735369 1 Tablet(s) PO TID as needed muscle spasms No Start Date 11/14/2017 Inactive Toprol XL 100 mg 24 hr Tab RxNorm: 924391 1 Tablet(s) PO BID No Start Date 04/25/2011 Inactive Xanax 0.25 mg tablet RxNorm: 859792 1 Tablet(s) PO daily as needed No Start Date 12/27/2015 Inactive Bystolic 10 mg Tab RxNorm: 057558 1 Tablet(s) PO daily No Start Date 05/22/2011 Inactive Fioricet 50 mg-325 mg-40 mg Tab RxNorm: 211492 1 Tablet(s) PO Q4 PRN No Start Date 07/13/2011 Inactive albuterol sulfate HFA 90 mcg/Actuation Aerosol Inhaler RxNorm: 4206117 1 INH Q4 PRN No Start Date 01/06/2015 Inactive Imitrex 50 mg tablet RxNorm: 449186 1 Tablet(s) PO Q8 as needed may repeat x1 dose in 1 hour of inital dose. No Start Date 02/24/2016 Inactive dc fioricet Tessalon 200 mg Cap RxNorm: 167348 1 Capsule(s) PO Q4 PRN No Start Date 02/14/2012 Inactive Zithromax Z-Sergio 250 mg tablet RxNorm: 555640 Tablet(s) PO No Start Date 11/10/2013 Inactive hydrochlorothiazide 25 mg Tab RxNorm: 325448 1 Tablet(s) PO daily No Start Date 09/04/2011 Inactive Fish Oil 1,000 mg Cap RxNorm: 1 Capsule(s) PO TID No Start Date 11/08/2017 Inactive Deplin 15 mg Tab RxNorm: 1 Tablet(s) PO daily No Start Date 08/01/2011 Inactive Brilinta 90 mg tablet RxNorm: 2396944 1 Tablet(s) PO BID No Start Date 11/23/2015 Inactive Synthroid 75 mcg Tab RxNorm: 415906 1 Tablet(s) PO daily No Start Date 07/31/2011 Inactive ciprofloxacin 0.3 % eye drops RxNorm: 911665 2 Drop(s) ophthalmic (eye) Q2H while awake x 2 days, then Q4H x 5 days No Start Date 11/22/2017 Inactive scopolamine 1.5 mg 72 hr Transderm Patch RxNorm: 542626 1 Milligram(s) TD q72 hours No Start Date 11/25/2012 Inactive hydrocodone-acetaminophen 10 mg-325 mg tablet RxNorm: 7855654 1 Tablet(s) PO Q6 PRN No Start Date 08/07/2012 Inactive Phenergan with Codeine Syrup RxNorm: 5-10 Milliliter(s) PO Q6 PRN No Start Date 02/14/2012 Inactive Norvasc 10 mg Tab RxNorm: 446392 1 Tablet(s) PO daily No Start Date 12/01/2011 Inactive Zithromax Z-Sergio 250 mg Tab RxNorm: 917689 Tablet(s) PO No Start Date 08/01/2011 Inactive Medication Administered Medication Codes Instructions Start Date Status Kenalog 40 mg/mL suspension for injection RxNorm: 1279676 1Milliliter 01/19/2018 No longer Active ceftriaxone 500 mg solution for injection RxNorm: [id number] 500Milligram 01/19/2018 No longer Active Kenalog 40 mg/mL suspension for injection RxNorm: 8517465 1Milliliter 06/27/2017 No longer Active Kenalog 40 mg/mL suspension for injection RxNorm: 8363906 Milliliter 04/20/2017 No longer Active Kenalog 40 mg/mL suspension for injection RxNorm: 1955829 1Milliliter 03/14/2017 No longer Active ceftriaxone 500 mg solution for injection RxNorm: 5986892 1Milliliter 11/28/2016 No longer Active ceftriaxone 500 mg solution for injection RxNorm: 6061903 11/07/2016 No longer Active Kenalog 40 mg/mL suspension for injection RxNorm: 1764555 Milliliter 11/07/2016 No longer Active ceftriaxone 500 mg solution for injection RxNorm: 2769738 12/07/2015 No longer Active ceftriaxone 500 mg solution for injection RxNorm: 4086462 Milliliter 11/24/2015 No longer Active Kenalog 40 mg/mL suspension for injection RxNorm: 1437135 1Milliliter 11/24/2015 No longer Active ketorolac 60 mg/2 mL intramuscular solution RxNorm: 392415 Milliliter 08/27/2015 No longer Active promethazine 25 mg/mL injection solution RxNorm: 655307 Milliliter 08/27/2015 No longer Active ceftriaxone 500 mg solution for injection RxNorm: 2304203 08/10/2015 No longer Active Kenalog 40 mg/mL suspension for injection RxNorm: 6502085 Milliliter 08/10/2015 No longer Active ceftriaxone 500 mg solution for injection RxNorm: 3676686 1Milliliter 07/28/2015 No longer Active Kenalog 40 mg/mL suspension for injection RxNorm: 0500546 Milliliter 03/19/2015 No longer Active ceftriaxone 500 mg solution for injection RxNorm: 850068 06/23/2014 No longer Active Kenalog 40 mg/mL suspension for injection RxNorm: 2822348 Milliliter 06/23/2014 No longer Active Rocephin 500 mg solution for injection RxNorm: 254409 1mlMilliliter 09/24/2013 No longer Active Rocephin 500 mg solution for injection RxNorm: 953640 1Milliliter 09/19/2013 No longer Active Kenalog 40 mg/mL suspension for injection RxNorm: 5931181 1Milliliter 07/10/2013 No longer Active Rocephin 500 mg solution for injection RxNorm: 167902 1 07/10/2013 No longer Active Kenalog 40 mg/mL Susp for Injection RxNorm: 6228244 1Milliliter 09/24/2012 No longer Active Rocephin 500 mg Solution for Injection RxNorm: 569495 02/15/2012 No longer Active Influenza Virus Vaccine 0.5 mL RxNorm: 05/23/2011 No longer Active Immunizations Vaccine Codes Date Status Influenza CVX: 141 06/24/2013 completed Pneumococcal CVX: 33 06/24/2013 completed PPD Unknown 05/13/2013 completed Assessments Condition Codes Effective Dates Laceration without foreign body, right lower leg, [...] generalized (osteo)arthritis ICD-10: M15.0 ICD-9: 715.09 01/19/2018 Acute recurrent maxillary sinusitis ICD-10: J01.01 ICD-9: 461.0 01/19/2018 Obstructive sleep apnea (adult) (pediatric) ICD-10: [...] Visit Reason For Visit Effective Dates Notes sores 02/08/2018 sores 02/07/2018 chest congestion 01/19/2018 [...] Item Item Code Result Date Comp Metabolic Aiy869 NA 141 mEq/L 09/12/2017 Comp Metabolic Kkx427 K 4.1 mEq/L 09/12/2017 Comp Metabolic Pri056 CL 105 mEq/L 09/12/2017 Comp Metabolic Jta919 CO2 30.0 mEq/L 09/12/2017 Comp Metabolic Rhs120 ANION GAP 10 09/12/2017 Comp Metabolic Ozj907 GLUCOSE 97 mg/dL 09/12/2017 Comp Metabolic Dvz645 Creat 0.7 mg/dL 09/12/2017 Comp Metabolic Say012 eGFR 91 ml/min/1.73m2 09/12/2017 Comp Metabolic Qif288 BUN 18 mg/dL 09/12/2017 Comp Metabolic Gxu428 B/C Ratio 26.5 Ratio 09/12/2017 Comp Metabolic Bie396 CALCIUM 9.7 mg/dL 09/12/2017 Comp Metabolic Fdg441 ALK PHOS 60 U/L 09/12/2017 Comp Metabolic Geu858 AST(SGOT) 22 U/L 09/12/2017 Comp Metabolic Oup780 ALT(SGPT) 23 U/L 09/12/2017 Comp Metabolic Rwk616 BILI T 0.4 mg/dL 09/12/2017 Comp Metabolic Kka730 ALBUMIN 3.8 g/dL 09/12/2017 Comp Metabolic Hhh005 TPRO 6.4 g/dL 09/12/2017 Comp Metabolic Otv820 GLOB 2.6 g/dL 09/12/2017 Comp Metabolic Nsc381 A/G Ratio 1.5 Ratio 09/12/2017 Comp Metabolic Aic209 Osmo 283 mOsmo 09/12/2017 Cbc With Differential [...] 30.7 pg 09/12/2017 Cbc With Differential Ord2 [place]% 7.2 % 09/12/2017 Cbc With Differential Ord2 [...] 2.46 K/ul 09/12/2017 Cbc With Differential Ord2 [place] ABS# 0.6 K/ul 09/12/2017 Cbc With Differential [...] 26.9 % 11/07/2016 Cbc With Differential Ord2 [place]% 6.1 % 11/07/2016 Cbc With Differential Ord2 [...] 2.48 K/ul 11/07/2016 Cbc With Differential Ord2 [place] ABS# 0.6 K/ul 11/07/2016 Cbc With Differential Ord2 [place] ABS# 0.3 K/ul 11/07/2016 Cbc With Differential Ord2 Baso ABS# 0.1 K/ul 11/07/2016 Comp Metabolic Dmg558 NA 139 mEq/L 11/07/2016 Comp Metabolic Keb436 K 3.8 mEq/L 11/07/2016 Comp Metabolic Sup884 CL 106 mEq/L 11/07/2016 Comp Metabolic Mzg032 CO2 25.0 mEq/L 11/07/2016 Comp Metabolic Ytl210 ANION GAP 12 11/07/2016 Comp Metabolic Dqe370 GLUCOSE 98 mg/dL 11/07/2016 Comp Metabolic Ljn724 Creat 0.8 mg/dL 11/07/2016 Comp Metabolic Hln821 eGFR 71 ml/min/1.73m2 11/07/2016 Comp Metabolic Ckk038 BUN 36 mg/dL 11/07/2016 Comp Metabolic Ojg302 B/C Ratio 42.9 Ratio 11/07/2016 Comp Metabolic Xhc981 CALCIUM 9.9 mg/dL 11/07/2016 Comp Metabolic Wfj920 ALK PHOS 57 U/L 11/07/2016 Comp Metabolic Die598 AST(SGOT) 24 U/L 11/07/2016 Comp Metabolic Ezp261 ALT(SGPT) 28 U/L 11/07/2016 Comp Metabolic Ukj254 BILI T 0.4 mg/dL 11/07/2016 Comp Metabolic Ltg615 ALBUMIN 4.2 g/dL 11/07/2016 Comp Metabolic Mcw012 TPRO 7.0 g/dL 11/07/2016 Comp Metabolic Pdx361 GLOB 2.8 g/dL 11/07/2016 Comp Metabolic Taz051 A/G Ratio 1.5 Ratio 11/07/2016 Comp Metabolic Rcf221 Osmo 286 mOsmo 11/07/2016 Free T4 Lel607 FREE T4 0.75 ng/dL 11/07/2016 Tsh Ord6 hTSH II 3.46 uIU/mL 11/07/2016 Comp Metabolic Zsh922 NA 138 mEq/L 05/10/2016 Comp Metabolic Hth891 K 3.8 mEq/L 05/10/2016 Comp Metabolic Bmd019 CL 102 mEq/L 05/10/2016 Comp Metabolic Xan323 CO2 29.0 mEq/L 05/10/2016 Comp Metabolic Icv161 ANION GAP 11 05/10/2016 Comp Metabolic Fbk766 GLUCOSE 107 mg/dL 05/10/2016 Comp Metabolic Qcz530 Creat 0.7 mg/dL 05/10/2016 Comp Metabolic Wmc045 eGFR 93 ml/min/1.73m2 05/10/2016 Comp Metabolic Bzi698 BUN 18 mg/dL 05/10/2016 Comp Metabolic Ius707 B/C Ratio 26.9 Ratio 05/10/2016 Comp Metabolic Ksl130 CALCIUM 9.8 mg/dL 05/10/2016 Comp Metabolic Ppr446 ALK PHOS 60 U/L 05/10/2016 Comp Metabolic Ewn165 AST(SGOT) 21 U/L 05/10/2016 Comp Metabolic Ako802 ALT(SGPT) 23 U/L 05/10/2016 Comp Metabolic Yuc042 BILI T 0.5 mg/dL 05/10/2016 Comp Metabolic Cnn812 ALBUMIN 4.1 g/dL 05/10/2016 Comp Metabolic Inc248 TPRO 6.7 g/dL 05/10/2016 Comp Metabolic Zkt114 GLOB 2.7 g/dL 05/10/2016 Comp Metabolic Bla901 A/G Ratio 1.5 Ratio 05/10/2016 Comp Metabolic Yjx391 Osmo 278 mOsmo 05/10/2016 Lipid Ord30 CHOL 169 mg/dL 05/10/2016 Lipid Ord30 HDL 50.0 mg/dl 05/10/2016 Lipid Ord30 TRIG 161 mg/dL 05/10/2016 Lipid Ord30 LDL 87 mg/dL 05/10/2016 Lipid Ord30 C/HDL 3.4 Ratio 05/10/2016 Comp Metabolic Zsz716 NA 137 mEq/L 06/12/2015 Comp Metabolic Fct601 K 3.8 mEq/L 06/12/2015 Comp Metabolic Okw404 CL 104 mEq/L 06/12/2015 Comp Metabolic Rwf567 CO2 24.0 mEq/L 06/12/2015 Comp Metabolic Bkw959 ANION GAP 13 06/12/2015 Comp Metabolic Aul707 GLUCOSE 92 mg/dL 06/12/2015 Comp Metabolic Ihy342 Creat 0.7 mg/dL 06/12/2015 Comp Metabolic Vek153 eGFR 87 ml/min/1.73m2 06/12/2015 Comp Metabolic Dkc391 BUN 31 mg/dL 06/12/2015 Comp Metabolic Fii623 B/C Ratio 43.7 Ratio 06/12/2015 Comp Metabolic Bof903 CALCIUM 10.0 mg/dL 06/12/2015 Comp Metabolic Pqw870 ALK PHOS 58 U/L 06/12/2015 Comp Metabolic Eta784 AST(SGOT) 32 U/L 06/12/2015 Comp Metabolic Tmt932 ALT(SGPT) 33 U/L 06/12/2015 Comp Metabolic Gkj323 BILI T 0.5 mg/dL 06/12/2015 Comp Metabolic Tju854 ALBUMIN 4.1 g/dL 06/12/2015 Comp Metabolic Ocv350 TPRO 6.6 g/dL 06/12/2015 Comp Metabolic Onz874 GLOB 2.5 g/dL 06/12/2015 Comp Metabolic Hct054 A/G Ratio 1.6 Ratio 06/12/2015 Comp Metabolic Olm546 Osmo 280 mOsmo 06/12/2015 Cbc With Differential [...] Differential Ord2 RDW 14.2 % 06/12/2015 CBC 2501768 WBC 8.7 10e9/L 04/30/2013 CBC 9790252 RBC 4.63 10e12/L 04/30/2013 CBC 3052928 HGB 14.1 g/dL 04/30/2013 CBC 2865886 HCT DET 42.2 % 04/30/2013 CBC 2221643 MCV 91.1 fL 04/30/2013 CBC 1258717 MCH 30.5 pg 04/30/2013 CBC 1698748 MCHC 33.4 g/dL 04/30/2013 CBC 5588130 PLT 248 10e9/L 04/30/2013 CBC 0775461 MPV 12.1 fL 04/30/2013 CBC 7118975 LARA % 59.0 % 04/30/2013 CBC 2356468 LY % 27.6 % 04/30/2013 CBC 1798180 MON % 8.0 % 04/30/2013 CBC 6362862 EOS % 4.8 % 04/30/2013 CBC 9514642 BASO % 0.6 % 04/30/2013 CBC 3917076 RDW 13.3 % 04/30/2013 CBC 6172469 ABS LARA 5.13 10e9/L 04/30/2013 CBC 8479255 ABS LYMPH 2.40 10e9/L 04/30/2013 CBC 9759631 ABS MONO 0.70 10e9/L 04/30/2013 CBC 0911399 ABS EOS 0.42 10e9/L 04/30/2013 CBC 7276898 ABS BASO 0.05 10e9/L 04/30/2013 CBC 0428951 RDW-SD 43.1 fL 04/30/2013 TSH 4791245 TSH 4.339 uIU/ML 04/30/2013 A1C HPLC 4373208 A1C HPLC 00783-3 5.6 % 04/30/2013 FREE T4 4730050 FREE T4 0.84 NG/DL 04/30/2013 GFR CALC 5137340 GFR AA >60 ML/MIN 04/30/2013 GFR CALC 7873043 GFR NON-AA >60 ML/MIN 04/30/2013 CHEM 14 9233710 AST 22 U/L 04/30/2013 CHEM 14 9848547 ALT 22 IU/L 04/30/2013 CHEM 14 3265137 BUN 24 MG/DL 04/30/2013 CHEM 14 8711988 ALBUMIN 4.2 GM/DL 04/30/2013 CHEM 14 5546290 CHLORIDE 107 MMOL/L 04/30/2013 CHEM 14 9073618 BILI TOT 0.3 MG/DL 04/30/2013 CHEM 14 1755217 ALK PHOS 88 U/L 04/30/2013 CHEM 14 4688948 SODIUM 141 MMOL/L 04/30/2013 CHEM 14 5473454 CREATININE 0.60 MG/DL 04/30/2013 CHEM 14 0711968 CALCIUM 9.9 MG/DL 04/30/2013 CHEM 14 4500871 POTASSIUM 3.7 MMOL/L 04/30/2013 CHEM 14 1905915 PROT TOT 6.6 GM/DL 04/30/2013 CHEM 14 7292270 GLUCOSE 123 MG/DL 04/30/2013 CHEM 14 8773122 BICARB 25 MMOL/L 04/30/2013 CHEM 14 0573364 ANION GAP 9 MEQ/L 04/30/2013 LIPID GRP HDL TEST 46 MG/DL 04/30/2013 LIPID GRP TRIG 148 MG/DL 04/30/2013 LIPID GRP TEST LDL 75 MG/DL 04/30/2013 LIPID GRP CHOL 151 MG/DL 04/30/2013 LIPID GRP RCHOL/HDL 3.28 RATIO 04/30/2013 TSH 2756424 TSH 3.341 uIU/ML 11/29/2012 CBC 7339656 WBC 8.4 10e9/L 11/29/2012 CBC 5184647 RBC 4.77 10e12/L 11/29/2012 CBC 3274119 HGB 14.9 g/dL 11/29/2012 CBC 8731420 HCT DET 44.2 % 11/29/2012 CBC 9910039 MCV 92.7 fL 11/29/2012 CBC 0508669 MCH 31.2 pg 11/29/2012 CBC 4142258 MCHC 33.7 g/dL 11/29/2012 CBC 4322040 PLT 253 10e9/L 11/29/2012 CBC 6835389 MPV 11.8 fL 11/29/2012 CBC 4591963 LARA % 54.9 % 11/29/2012 CBC 3092770 LY % 29.0 % 11/29/2012 CBC 2327421 MON % 10.4 % 11/29/2012 CBC 8170543 EOS % 5.1 % 11/29/2012 CBC 1954760 BASO % 0.6 % 11/29/2012 CBC 6041596 RDW 13.8 % 11/29/2012 CBC 2518435 ABS LARA 4.61 10e9/L 11/29/2012 CBC 3385769 ABS LYMPH 2.44 10e9/L 11/29/2012 CBC 6562729 ABS MONO 0.87 10e9/L 11/29/2012 CBC 9396365 ABS EOS 0.43 10e9/L 11/29/2012 CBC 6535462 ABS BASO 0.05 10e9/L 11/29/2012 CBC 9657068 RDW-SD 45.9 fL 11/29/2012 CHEM 14 2191943 AST 25 U/L 11/29/2012 CHEM 14 2751125 ALT 26 IU/L 11/29/2012 CHEM 14 2527248 BUN 25 MG/DL 11/29/2012 CHEM 14 1460753 ALBUMIN 4.4 GM/DL 11/29/2012 CHEM 14 9283078 CHLORIDE 106 MMOL/L 11/29/2012 CHEM 14 4432242 BILI TOT 0.4 MG/DL 11/29/2012 CHEM 14 9369437 ALK PHOS 86 U/L 11/29/2012 CHEM 14 8125445 SODIUM 141 MMOL/L 11/29/2012 CHEM 14 0245680 CREATININE 0.80 MG/DL 11/29/2012 CHEM 14 7728789 CALCIUM 9.7 MG/DL 11/29/2012 CHEM 14 6484731 POTASSIUM 4.0 MMOL/L 11/29/2012 CHEM 14 2762707 PROT TOT 6.6 GM/DL 11/29/2012 CHEM 14 3030954 GLUCOSE 112 MG/DL 11/29/2012 CHEM 14 6227720 BICARB 29 MMOL/L 11/29/2012 CHEM 14 7443976 ANION GAP 6 MEQ/L 11/29/2012 A1C HPLC 2799330 A1C HPLC 84900-1 5.5 % 11/29/2012 LIPID GRP HDL TEST 54 MG/DL 11/29/2012 LIPID GRP TRIG 77 MG/DL 11/29/2012 LIPID GRP TEST LDL 78 MG/DL 11/29/2012 LIPID GRP CHOL 147 MG/DL 11/29/2012 LIPID GRP RCHOL/HDL 2.72 RATIO 11/29/2012 FREE T4 5828451 FREE T4 1.23 NG/DL 11/29/2012 GFR CALC 1591055 GFR AA >60 ML/MIN 11/29/2012 GFR CALC 9987323 GFR NON-AA >60 ML/MIN 11/29/2012 CHEM 14 3941013 AST 23 U/L 08/07/2012 CHEM 14 4142553 ALT 34 IU/L 08/07/2012 CHEM 14 2007508 BUN 26 MG/DL 08/07/2012 CHEM 14 1752715 ALBUMIN 4.4 GM/DL 08/07/2012 CHEM 14 7990581 CHLORIDE 105 MMOL/L 08/07/2012 CHEM 14 3505802 BILI TOT 0.5 MG/DL 08/07/2012 CHEM 14 7893993 ALK PHOS 79 U/L 08/07/2012 CHEM 14 8911033 SODIUM 140 MMOL/L 08/07/2012 CHEM 14 0068869 CREATININE 0.71 MG/DL 08/07/2012 CHEM 14 1368835 CALCIUM 10.4 MG/DL 08/07/2012 CHEM 14 1630544 POTASSIUM 3.8 MMOL/L 08/07/2012 CHEM 14 6995812 PROT TOT 6.8 GM/DL 08/07/2012 CHEM 14 1045604 GLUCOSE 104 MG/DL 08/07/2012 CHEM 14 0230329 BICARB 27 MMOL/L 08/07/2012 CHEM 14 4345248 ANION GAP 8 MEQ/L 08/07/2012 A1C HPLC 3957823 A1C HPLC 97138-9 5.4 % 08/07/2012 FREE T4 3921078 FREE T4 1.11 NG/DL 08/07/2012 LIPID GRP HDL TEST 50 MG/DL 08/07/2012 LIPID GRP TRIG 127 MG/DL 08/07/2012 LIPID GRP TEST LDL 93 MG/DL 08/07/2012 LIPID GRP CHOL 168 MG/DL 08/07/2012 LIPID GRP RCHOL/HDL 3.36 RATIO 08/07/2012 CBC 5394671 WBC 8.7 10e9/L 08/07/2012 CBC 6317962 RBC 4.67 10e12/L 08/07/2012 CBC 3389253 HGB 14.4 g/dL 08/07/2012 CBC 2217088 HCT DET 42.8 % 08/07/2012 CBC 4088212 MCV 91.6 fL 08/07/2012 CBC 3373600 MCH 30.8 pg 08/07/2012 CBC 1385397 MCHC 33.6 g/dL 08/07/2012 CBC 6509408 PLT 271 10e9/L 08/07/2012 CBC 7046789 MPV 12.3 fL 08/07/2012 CBC 0088007 LARA % 50.6 % 08/07/2012 CBC 9039490 LY % 34.9 % 08/07/2012 CBC 1529636 MON % 9.1 % 08/07/2012 CBC 5509240 EOS % 5.1 % 08/07/2012 CBC 4861913 BASO % 0.3 % 08/07/2012 CBC 1878629 RDW 13.6 % 08/07/2012 CBC 3738863 ABS LARA 4.40 10e9/L 08/07/2012 CBC 5792071 ABS LYMPH 3.04 10e9/L 08/07/2012 CBC 0901031 ABS MONO 0.79 10e9/L 08/07/2012 CBC 2918303 ABS EOS 0.44 10e9/L 08/07/2012 CBC 9264765 ABS BASO 0.03 10e9/L 08/07/2012 CBC 4782781 RDW-SD 44.1 fL 08/07/2012 TSH 8772464 TSH 7.419 uIU/ML 08/07/2012 GFR CALC 4012637 GFR AA >60 ML/MIN 08/07/2012 GFR CALC 7883844 GFR NON-AA >60 ML/MIN 08/07/2012 A1C HPLC 8795277 A1C HPLC 26503-9 5.3 % 02/21/2012 TSH 0394446 TSH 0.832 uIU/ML 02/16/2012 FREE T4 3572380 FREE T4 1.04 NG/DL 02/16/2012 GFR CALC 3782273 GFR AA >60 ML/MIN 02/16/2012 GFR CALC 8839685 GFR NON-AA >60 ML/MIN 02/16/2012 [facility] GLUCOSE 112 MG/DL 02/16/2012 BMP CREATININE 0.65 MG/DL 02/16/2012 [facility] BUN 17 MG/DL 02/16/2012 BMP SODIUM 144 MMOL/L 02/16/2012 BMP POTASSIUM 4.0 MMOL/L 02/16/2012 [facility] CHLORIDE 107 MMOL/L 02/16/2012 BMP BICARB 29 MMOL/L 02/16/2012 BMP ANION GAP 8 MEQ/L 02/16/2012 BMP CALCIUM 9.5 MG/DL 02/16/2012 CBC 0857128 WBC 7.1 10e9/L 02/16/2012 CBC 3405682 RBC 4.47 10e12/L 02/16/2012 CBC 5991139 HGB 13.5 g/dL 02/16/2012 CBC 4886956 HCT DET 40.7 % 02/16/2012 CBC 5681099 MCV 91.1 fL 02/16/2012 CBC 3519769 MCH 30.2 pg 02/16/2012 CBC 2893480 MCHC 33.2 g/dL 02/16/2012 CBC 6618384 PLT 238 10e9/L 02/16/2012 CBC 7417236 MPV 11.4 fL 02/16/2012 CBC 2043221 LARA % 55.7 % 02/16/2012 CBC 8438121 LY % 29.6 % 02/16/2012 CBC 0940258 MON % 9.2 % 02/16/2012 CBC 8069991 EOS % 5.1 % 02/16/2012 CBC 9569016 BASO % 0.4 % 02/16/2012 CBC 0384858 RDW 13.0 % 02/16/2012 CBC 9117178 ABS LARA 3.95 10e9/L 02/16/2012 CBC 2275231 ABS LYMPH 2.10 10e9/L 02/16/2012 CBC 8513012 ABS MONO 0.65 10e9/L 02/16/2012 CBC 5121652 ABS EOS 0.36 10e9/L 02/16/2012 CBC 3774543 ABS BASO 0.03 10e9/L 02/16/2012 CBC 0436559 RDW-SD 42.4 fL 02/16/2012 URINALYSIS NONAUTO W/O SCOPE 37592 Specific [place] 1.015 DateTime(Free Text in Aprima) URINALYSIS NONAUTO W/O SCOPE 16035 PH 7 DateTime(Free Text in Aprima) URINALYSIS NONAUTO W/O SCOPE 55035 GLUCOSE neg DateTime(Free Text in Aprima) URINALYSIS NONAUTO W/O SCOPE 74000 Protein 1+ DateTime(Free Text in Aprima) URINALYSIS NONAUTO W/O SCOPE 71357 Blood neg DateTime(Free Text in Aprima) URINALYSIS NONAUTO W/O SCOPE 62033 Bilirubin neg DateTime(Free Text in Aprima) URINALYSIS NONAUTO W/O SCOPE 79109 Ketones neg DateTime(Free Text in Aprima) URINALYSIS NONAUTO W/O SCOPE 82487 Urobilinogen neg DateTime(Free Text in Aprima) URINALYSIS NONAUTO W/O SCOPE 45260 Nitrite postive DateTime(Free Text in Aprima) URINALYSIS NONAUTO W/O SCOPE 24327 Leukocytes 3+ DateTime(Free Text in Aprima) URINALYSIS NONAUTO W/O SCOPE 50736 Specific [place] 1.030 DateTime(Free Text in Aprima) URINALYSIS NONAUTO W/O SCOPE 89489 PH 6 DateTime(Free Text in Aprima) URINALYSIS NONAUTO W/O SCOPE 46301 GLUCOSE neg DateTime(Free Text in Aprima) URINALYSIS NONAUTO W/O SCOPE 69272 Protein neg DateTime(Free Text in Aprima) URINALYSIS NONAUTO W/O SCOPE 55199 Blood neg DateTime(Free Text in Aprima) URINALYSIS NONAUTO W/O SCOPE 56046 Bilirubin neg DateTime(Free Text in Aprima) URINALYSIS NONAUTO W/O SCOPE 21641 Ketones neg DateTime(Free Text in Aprima) URINALYSIS NONAUTO W/O SCOPE 63631 Urobilinogen neg DateTime(Free Text in Aprima) URINALYSIS NONAUTO W/O SCOPE 63733 Nitrite neg DateTime(Free Text in Aprima) URINALYSIS NONAUTO W/O SCOPE 38147 Leukocytes trace DateTime(Free Text in Aprima) URINALYSIS NONAUTO W/O SCOPE 00194 Specific [place] 1.005 DateTime(Free Text in Aprima) URINALYSIS NONAUTO W/O SCOPE 63871 PH 5 DateTime(Free Text in Aprima) URINALYSIS NONAUTO W/O SCOPE 16230 GLUCOSE neg DateTime(Free Text in Aprima) URINALYSIS NONAUTO W/O SCOPE 85052 Protein neg DateTime(Free Text in Aprima) URINALYSIS NONAUTO W/O SCOPE 08240 Blood neg DateTime(Free Text in Aprima) URINALYSIS NONAUTO W/O SCOPE 64162 Bilirubin neg DateTime(Free Text in Aprima) URINALYSIS NONAUTO W/O SCOPE 32489 Ketones neg DateTime(Free Text in Aprima) URINALYSIS NONAUTO W/O SCOPE 60229 Urobilinogen neg DateTime(Free Text in Aprima) URINALYSIS NONAUTO W/O SCOPE 94403 Nitrite neg DateTime(Free Text in Aprima) URINALYSIS NONAUTO W/O SCOPE 29849 Leukocytes neg DateTime(Free Text in Aprima) UA 23364 Specific [place] 1.030 DateTime(Free Text in Aprima) UA 95823 PH 5 DateTime(Free Text in Aprima) UA 69418 GLUCOSE neg DateTime(Free Text in Aprima) UA 96039 Protein trace DateTime(Free Text in Aprima) UA 07069 Blood large DateTime(Free Text in Aprima) UA 59788 Bilirubin neg DateTime(Free Text in Aprima) UA 60108 Ketones neg DateTime(Free Text in Aprima) UA 78031 Urobilinogen neg DateTime(Free Text in Aprima) UA 94132 Nitrite neg DateTime(Free Text in Aprima) UA 24305 Leukocytes large DateTime(Free Text in Apr) Review of Systems System Result Effective Dates Constitutional No recent illness 02/07/2018 Constitutional No [...] developed 11/23/2017 None Full Exam - General 1995 Constitutional [...] clear 09/12/2017 None Full Exam - General 1995 Eyes conjunctiva/eyelids Overall: eyelids normal 09/12/2017 None [...] time 08/27/2015 None Full Exam - General [facility] Psychiatric appearance Overall: well-groomed, good eye [...] 1994 Ears/Nose/Throat oral cavity/pharynx/larynx Overall: no masses 12/03/2012 [...] General 1995 Eyes conjunctiva/eyelids Overall: cornea clear 08/08/2012 None Full Exam - General 1995 Eyes conjunctiva/eyelids Overall: eyelids normal 08/08/2012 None [...] murmurs 08/08/2012 None Full Exam - General 1995 Chest/Breast breast/chest inspection Overall: normal chest shape 08/08/2012 None Full Exam - General 1995 Abdomen abdominal exam Overall: no tenderness 08/08/2012 None Full Exam - General 1994 Abdomen abdominal exam Overall: normal bowel sounds 08/08/2012 None Full Exam - General 1995 Lymphatic [...] size 02/15/2012 None Full Exam - General 1995 Respiratory respiratory effort/rhythm Overall: normal rate 02/15/2012 None Full Exam - General 1995 Respiratory respiratory effort/rhythm Overall: no retractions 02/15/2012 [...] developed 02/15/2012 None Full Exam - General 1995 [...] edema 04/25/2011 None Procedures Procedure Codes Date ROCEPHIN, PER 250 MG CPT- 4: J0696 01/19/2018 TRIAMCINOLONE ACET INJ NOS CPT-4: J3301 01/19/2018 PPPS, SUBSEQ VISIT CPT- 4: G0439 11/23/2017 TRIAMCINOLONE ACET INJ NOS CPT-4: J3301 06/27/2017 THER/PROPH/DIAG INJ SC/IM CPT-4: 68411 04/20/2017 TRIAMCINOLONE ACET INJ NOS CPT-4: J3301 04/20/2017 TRIAMCINOLONE ACET INJ NOS CPT-4: J3301 03/14/2017 ROCEPHIN, PER 250 MG CPT- 4: J0696 03/14/2017 DESTRUCT PREMALG LESION CPT-4: 56351 12/05/2016 DESTRUCT PREMALG LES 2-14 CPT-4: 56396 12/05/2016 URINALYSIS NONAUTO W/O SCOPE CPT-4: 54738 11/28/2016 ROCEPHIN, PER 250 MG CPT- 4: J0696 11/28/2016 PPPS, SUBSEQ VISIT CPT- 4: G0439 11/07/2016 THER/PROPH/DIAG INJ SC/IM CPT-4: 06854 11/07/2016 TRIAMCINOLONE ACET INJ NOS CPT-4: J3301 11/07/2016 ROCEPHIN, PER 250 MG CPT- 4: J0696 11/07/2016 THER/PROPH/DIAG INJ SC/IM CPT-4: 69197 08/15/2016 TRIAMCINOLONE ACET INJ NOS CPT-4: J3301 08/15/2016 ROCEPHIN, PER 250 MG CPT- 4: J0696 08/15/2016 URINALYSIS NONAUTO W/O SCOPE CPT-4: 77541 05/05/2016 ROCEPHIN, PER 250 MG CPT- 4: J0696 12/07/2015 TRIAMCINOLONE ACET INJ NOS CPT-4: J3301 11/24/2015 ROCEPHIN, PER 250 MG CPT- 4: J0696 11/24/2015 THER/PROPH/DIAG INJ SC/IM CPT-4: 07209 11/24/2015 THER/PROPH/DIAG INJ SC/IM CPT-4: 30587 08/27/2015 KETOROLAC TROMETHAMINE INJ CPT-4: J1885 08/27/2015 PROMETHAZINE HCL INJECTION CPT-4: J2550 08/27/2015 THER/PROPH/DIAG INJ SC/IM CPT-4: 94243 08/10/2015 TRIAMCINOLONE ACET INJ NOS CPT-4: J3301 08/10/2015 ROCEPHIN, PER 250 MG CPT- 4: J0696 08/10/2015 C WOUN RTS (CULTURE OTHR SPECIMN AEROBIC) CPT-4: 04149 07/28/2015 THER/PROPH/DIAG INJ SC/IM CPT-4: 36453 03/19/2015 TRIAMCINOLONE ACET INJ NOS CPT-4: J3301 03/19/2015 ROCEPHIN, PER 250 MG CPT- 4: J0696 06/23/2014 TRIAMCINOLONE ACET INJ NOS CPT-4: J3301 06/23/2014 INJ TRIGGER POINT 1/2 MUSCL CPT-4: 00627 06/05/2014 URINALYSIS NONAUTO W/O SCOPE CPT-4: 16691 02/11/2014 URINALYSIS NONAUTO W/O SCOPE CPT-4: 45425 10/15/2013 ROCEPHIN, PER 250 MG CPT- 4: J0696 09/24/2013 THER/PROPH/DIAG INJ SC/IM CPT-4: 18386 09/19/2013 ROCEPHIN, PER 250 MG CPT- 4: J0696 09/19/2013 PRESCRIP TRANSMIT VIA ERX SY CPT-4: G8553 08/05/2013 ROCEPHIN, PER 250 MG CPT- 4: J0696 07/10/2013 THER/PROPH/DIAG INJ SC/IM CPT-4: 36739 07/10/2013 TRIAMCINOLONE ACET INJ NOS CPT-4: J3301 07/10/2013 PRESCRIP TRANSMIT VIA ERX SY CPT-4: G8553 07/10/2013 [id number] EST. PATIENT, LEVEL III CPT-4: 19065 06/03/2013 PRESCRIP TRANSMIT VIA ERX SY CPT-4: G8553 06/03/2013 PRESCRIP TRANSMIT VIA ERX SY CPT-4: G8553 05/07/2013 ROUTINE VENIPUNCTURE CPT- 4: 99983 04/30/2013 ROUTINE VENIPUNCTURE CPT- 4: 06145 11/29/2012 TRIAMCINOLONE ACET INJ NOS CPT-4: J3301 09/24/2012 THER/PROPH/DIAG INJ SC/IM CPT-4: 41041 09/24/2012 URINALYSIS NONAUTO W/O SCOPE CPT-4: 17575 09/24/2012 PRESCRIP TRANSMIT VIA ERX SY CPT-4: G8553 09/24/2012 PRESCRIP TRANSMIT VIA ERX SY CPT-4: G8553 09/10/2012 PRESCRIP TRANSMIT VIA ERX SY CPT-4: G8553 08/08/2012 ROUTINE VENIPUNCTURE CPT- 4: 07830 08/07/2012 ROUTINE VENIPUNCTURE CPT- 4: 69787 02/16/2012 URINALYSIS NONAUTO W/O SCOPE CPT-4: 91233 02/15/2012 ROCEPHIN, PER 250 MG CPT- 4: J0696 02/15/2012 PRESCRIP TRANSMIT VIA ERX SY CPT-4: G8553 02/15/2012 ROUTINE VENIPUNCTURE CPT- 4: 97008 11/08/2011 ROCEPHIN, PER 250 MG CPT- 4: J0696 07/14/2011 THER/PROPH/DIAG INJ SC/IM CPT-4: 09061 07/14/2011 Influenza Virus Vaccine, Split Virus, >3 Yrs, IM CPT-4: 44600 05/23/2011 IMMUNIZATION ADMIN CPT- 4: 04024 05/23/2011 THER/PROPH/DIAG INJ SC/IM CPT-4: 80860 05/03/2011 ROCEPHIN, PER 250 MG CPT- 4: J0696 05/03/2011 TRIAMCINOLONE ACET INJ NOS CPT-4: J3301 05/03/2011 Vital Signs Date Vital 02/07/2018 Height: Weight: 01/19/2018 Blood Pressure 1: 128/76 Code: 8480-6 BMI: 31.2 Code: 87416-8 Heart Rate 1: 71 bpm Height: 4'11" SpO2: 96% Temperature: 36.5 (C) / 97.7 (F) Weight: 154 lbs 8 oz 11/23/2017 Blood Pressure 1: 146/80 Code: 8480-6 BMI: 31.7 Code: 31890-1 Heart Rate 1: 64 bpm Height: 4'11" SpO2: 97% Waist Measure (cm): 89 cm Weight: 157 lbs 09/12/2017 Blood Pressure 1: 140/86 Code: 8480-6 Heart Rate 1: 62 bpm SpO2: 96% Temperature: 36.6 (C) / 97.8 (F) Weight: 153 lbs 07/25/2017 Blood Pressure 1: 140/72 Code: 8480-6 BMI: 31.3 Code: 41947-1 Heart Rate 1: 76 bpm Height: 4'11" SpO2: 97% Temperature: 37.2 (C) / 99.0 (F) Weight: 155 lbs 06/27/2017 Blood Pressure 1: 144/84 Code: 8480-6 BMI: 31.1 Code: 15601-8 Heart Rate 1: 63 bpm Height: 4'11" SpO2: 99% Temperature: 36.4 (C) / 97.6 (F) Weight: 154 lbs 05/08/2017 Blood Pressure 1: 142/86 Code: 8480-6 BMI: 30.9 Code: 80857-9 Height: 4'11" Temperature: 36.3 (C) / 97.4 (F) Weight: 153 lbs 03/14/2017 Blood Pressure 1: 146/82 Code: 8480-6 BMI: 30.9 Code: 99771-1 Heart Rate 1: 64 bpm Height: 4'11" SpO2: 94% Weight: 153 lbs 02/20/2017 Blood Pressure 1: 142/80 Code: 8480-6 BMI: 30.9 Code: 22646-2 Heart Rate 1: 75 bpm Height: 4'11" SpO2: 97% Weight: 153 lbs 02/06/2017 Blood Pressure 1: 138/90 Code: 8480-6 BMI: 31.5 Code: 39957-3 Heart Rate 1: 61 bpm Height: 4'11" SpO2: 98% Weight: 156 lbs 12/05/2016 Blood Pressure 1: 122/72 Code: 8480-6 Heart Rate 1: 59 bpm Height: 4'11" SpO2: 98% Weight: 11/28/2016 Blood Pressure 1: 154/86 Code: 8480-6 BMI: 31.3 Code: 49132-7 Heart Rate 1: 64 bpm Height: 4'11" SpO2: 94% Temperature: 36.2 (C) / 97.2 (F) Weight: 155 lbs 11/07/2016 Blood Pressure 1: 128/64 Code: 8480-6 BMI: 31.5 Code: 06096-6 Heart Rate 1: 59 bpm Height: 4'11" SpO2: 97% Weight: 156 lbs 08/15/2016 Blood Pressure 1: 110/62 Code: 8480-6 BMI: 31.5 Code: 41004-7 Heart Rate 1: 76 bpm Height: 4'11" SpO2: 97% Weight: 156 lbs 06/07/2016 Blood Pressure 1: 120/80 Code: 8480-6 BMI: 32.9 Code: 85388-7 Heart Rate 1: 63 bpm Height: 4'11" SpO2: 93% Temperature: 36.5 (C) / 97.7 (F) Weight: 163 lbs 03/15/2016 Blood Pressure 1: 90/42 Code: 8480-6 Heart Rate 1: 65 bpm SpO2: 94% 03/14/2016 Blood Pressure 1: 188/110 Code: 8480-6 Heart Rate 1: 68 bpm SpO2: 96% 02/22/2016 Blood Pressure 1: 158/80 Code: 8480-6 BMI: 32.7 Code: 44856-5 Heart Rate 1: 71 bpm Height: 4'11" SpO2: 95% Weight: 162 lbs 12/07/2015 Blood Pressure 1: 140/88 Code: 8480-6 BMI: 32.9 Code: 67237-8 Heart Rate 1: 99 bpm Height: 4'11" SpO2: 94% Temperature: 35.9 (C) / 96.6 (F) Weight: 163 lbs 11/24/2015 Blood Pressure 1: 144/78 Code: 8480-6 BMI: 33.7 Code: 82129-3 Heart Rate 1: 60 bpm Height: 4'11" SpO2: 98% Temperature: 36.6 (C) / 97.9 (F) Weight: 167 lbs 08/27/2015 Blood Pressure 1: 164/82 Code: 8480-6 BMI: 32.3 Code: 02989-5 Heart Rate 1: 60 bpm Height: 4'11" SpO2: 93% Weight: 160 lbs 08/10/2015 Blood Pressure 1: 130/60 Code: 8480-6 BMI: 32.5 Code: 49909-8 Heart Rate 1: 64 bpm Height: 4'11" SpO2: 97% Weight: 161 lbs 07/28/2015 Blood Pressure 1: 124/68 Code: 8480-6 BMI: 32.5 Code: 37637-0 Heart Rate 1: 69 bpm Height: 4'11" SpO2: 97% Weight: 161 lbs 06/11/2015 Blood Pressure 1: 148/80 Code: 8480-6 BMI: 32.9 Code: 61829-7 Heart Rate 1: 70 bpm Height: 4'11" SpO2: 94% Weight: 163 lbs 03/19/2015 Blood Pressure 1: 150/102 Code: 8480-6 Blood Pressure 2: 152/92 Code: 8480-6 BMI: 32.5 Code: 82497-3 Heart Rate 1: 71 bpm Height: 4'11" SpO2: 96% Weight: 161 lbs 01/07/2015 Blood Pressure 1: 126/84 Code: 8480-6 Heart Rate 1: 80 bpm Height: 4'11" 09/23/2014 Blood Pressure 1: 112/72 Code: 8480-6 BMI: 33.9 Code: 74567-5 Heart Rate 1: 72 bpm Height: 4'11" Weight: 168 lbs 08/05/2014 Blood Pressure 1: 140/86 Code: 8480-6 BMI: 33.3 Code: 86404-0 Height: 4'11" Weight: 165 lbs 06/23/2014 Blood Pressure 1: 132/70 Code: 8480-6 BMI: 32.9 Code: 36796-0 Heart Rate 1: 58 bpm Height: 4'11" Temperature: 36.0 (C) / 96.8 (F) Weight: 163 lbs 06/05/2014 Blood Pressure 1: 121/85 Code: 8480-6 BMI: 34.3 Code: 96495-2 Height: 4'11" Weight: 170 lbs 04/03/2014 Blood Pressure 1: 128/80 Code: 8480-6 Heart Rate 1: 88 bpm Weight: 167 lbs 03/07/2014 Blood Pressure 1: 122/82 Code: 8480-6 BMI: 33.9 Code: 11265-6 Heart Rate 1: 68 bpm Height: 4'11" Weight: 168 lbs 11/21/2013 Blood Pressure 1: 100/58 Code: 8480-6 BMI: 33.7 Code: 92764-9 Heart Rate 1: 64 bpm Height: 4'11" Weight: 167 lbs 09/24/2013 Blood Pressure 1: 148/88 Code: 8480-6 Heart Rate 1: 68 bpm Weight: 09/19/2013 Blood Pressure 1: 120/80 Code: 8480-6 BMI: 33.9 Code: 52127-2 Heart Rate 1: 80 bpm Height: 4'11" Temperature: 36.9 (C) / 98.5 (F) Weight: 168 lbs 08/05/2013 Blood Pressure 1: 128/80 Code: 8480-6 BMI: 34.3 Code: 19693-6 Heart Rate 1: 64 bpm Height: 4'11" Temperature: 36.2 (C) / 97.2 (F) Weight: 170 lbs 07/10/2013 Blood Pressure 1: 120/84 Code: 8480-6 BMI: 36.0 Code: 09464-1 Heart Rate 1: 90 bpm Height: 4'11" SpO2: 97% Temperature: 36.8 (C) / 98.2 (F) Weight: 178 lbs 06/03/2013 Blood Pressure 1: 136/94 Code: 8480-6 BMI: 34.7 Code: 10206-4 Heart Rate 1: 68 bpm Height: 4'11" Temperature: 36.7 (C) / 98.0 (F) Weight: 172 lbs 05/13/2013 Blood Pressure 1: 132/90 Code: 8480-6 Heart Rate 1: 68 bpm 05/07/2013 Blood Pressure 1: 168/100 Code: 8480-6 BMI: 34.3 Code: 86421-6 Heart Rate 1: 76 bpm Height: 4'11" Weight: 170 lbs 12/03/2012 Blood Pressure 1: 142/78 Code: 8480-6 BMI: 33.5 Code: 00869-1 Heart Rate 1: 76 bpm Height: 4'11" Weight: 166 lbs 09/24/2012 Blood Pressure 1: 116/70 Code: 8480-6 Heart Rate 1: 68 bpm Respiratory Rate: 16 bpm Temperature: 36.9 (C) / 98.4 (F) Weight: 162 lbs 09/10/2012 Blood Pressure 1: 116/80 Code: 8480-6 BMI: 33.7 Code: 15854-5 Heart Rate 1: 76 bpm Height: 4'11" [...] 1: 149/85 Code: 8480-6 BMI: 32.9 Code: 09643-9 Heart Rate 1: 79 bpm Height: 4'11" Weight: 164 lbs 05/03/2011 Blood Pressure 1: 122/79 Code: 8480-6 BMI: 30.8 Code: 54687-9 Heart Rate 1: 72 bpm Height: 5'1" Weight: 163 lbs 04/25/2011 Blood Pressure 1: 137/84 Code: 8480-6 BMI: 31.0 Code: 20329-6 Heart Rate 1: 63 bpm Height: 5'1" Respiratory Rate: 20 bpm Weight: 164 lbs Functional Status No Functional Status data History of Present Illness Symptom Name Status Result Effective Date Notes sores Location-Extremities on both legs 02/08/2018 None [...] days ago 02/15/2012 while visiting mother in [place] had uti and was put on pyridum [...] surg in december. then took trip to [facility] to see mother and has had swelling [...] Quality chronic 08/01/2011 states went shopping on [employer] over night without taking any of medications [...] data Encounters Encounter Performer Location Codes Date ([id number]) Miscellaneous no charge Diagnosis: Laceration without foreign body, left lower leg, subsequent encounter[ICD10: S81.812D] Diagnosis: Laceration without foreign body, right lower leg, subsequent encounter[ICD10: S81.811D] [facility] CPT-4: 18989 02/08/2018 48969 EST. PATIENT, LEVEL III Diagnosis: Cellulitis of left lower limb[ICD10: L03.116] Diagnosis: Cellulitis of right lower limb[ICD10: L03.115] Diagnosis: Laceration without foreign body, left lower leg, initial encounter[ICD10: S81.812A] Diagnosis: Laceration without foreign body, right lower leg, initial encounter[ICD10: S81.811A] [facility] CPT-4: 71690 02/07/2018 ([id number]) 70756 EST. PATIENT, LEVEL IV Diagnosis: Primary generalized (osteo)arthritis[ICD10: M15.0] Diagnosis: Acute recurrent maxillary sinusitis[ICD10: J01.01] Diagnosis: Low back pain[ICD10: M54.5] Diagnosis: Other allergic rhinitis[ICD10: J30.89] Diagnosis: Obstructive sleep apnea (adult) (pediatric)[ICD10: G47.33] Shahida Goldman MD, [facility] CPT-4: 36894 01/19/2018 35710 EST. PATIENT, LEVEL IV Diagnosis: Diarrhea, unspecified[ICD10: R19.7] Diagnosis: Generalized abdominal pain[ICD10: R10.84] Diagnosis: Other allergic rhinitis[ICD10: J30.89] Diagnosis: Other acute sinusitis[ICD10: J01.80] Isabelle Goldman MD, [facility] CPT- 4: 38733 09/12/2017 09188 EST. PATIENT, LEVEL III Diagnosis: Acute laryngopharyngitis[ICD10: J06.0] Diagnosis: Other allergic rhinitis[ICD10: J30.89] Diagnosis: Cough[ICD10: R05] Diagnosis: Wheezing[ICD10: R06.2] Isabelle Goldman MD, [facility] CPT-4: 05525 07/25/2017 ([id number]) 42360 EST. PATIENT, LEVEL IV Diagnosis: Acute recurrent maxillary sinusitis[ICD10: J01.01] Diagnosis: Cervicalgia[ICD10: M54.2] Diagnosis: Diarrhea, unspecified[ICD10: R19.7] Shahida Goldman MD, [facility] CPT-4: 48741 06/27/2017 ([id number]) 77819 EST. PATIENT, LEVEL III Diagnosis: Chronic maxillary sinusitis[ICD10: J32.0] Diagnosis: Gastro-esophageal reflux disease without esophagitis[ICD10: K21.9] Shahida Goldman MD, [facility] CPT-4: 06524 05/08/2017 ([id number]) 39458 EST. PATIENT, LEVEL III Diagnosis: Acute recurrent maxillary sinusitis[ICD10: J01.01] Shahida Goldman MD, [facility] CPT-4: 67520 03/14/2017 38367 EST. PATIENT, LEVEL IV Diagnosis: Epigastric pain[ICD10: R10.13] Diagnosis: Left upper quadrant pain[ICD10: R10.12] Diagnosis: Left lower quadrant pain[ICD10: R10.32] Isabelle Goldman MD, [facility] CPT-4: 26033 02/20/2017 ([id number]) 50790 EST. PATIENT, LEVEL IV Diagnosis: Generalized anxiety disorder[ICD10: F41.1] Diagnosis: Major depressive disorder, recurrent, moderate[ICD10: F33.1] Diagnosis: Left upper quadrant pain[ICD10: R10.12] Diagnosis: Epigastric pain[ICD10: R10.13] Diagnosis: Actinic keratosis[ICD10: L57.0] Melba Goldman MD, [facility] CPT-4: 38124 02/06/2017 ([id number]) 28839 EST. PATIENT, LEVEL III Diagnosis: Actinic keratosis[ICD10: L57.0] Diagnosis: Major depressive disorder, recurrent, moderate[ICD10: F33.1] Melba Goldman MD, [facility] CPT-4: 22328 12/05/2016 ([id number]) 36523 EST. PATIENT, LEVEL III Diagnosis: Acute recurrent maxillary sinusitis[ICD10: J01.01] Diagnosis: Dysuria[ICD10: R30.0] Shahida Goldman MD, [facility] CPT-4: 62524 11/28/2016 90750 EST. PATIENT, LEVEL IV Diagnosis: Other acute sinusitis[ICD10: J01.80] Diagnosis: Acute laryngopharyngitis[ICD10: J06.0] Diagnosis: Other allergic rhinitis[ICD10: J30.89] Isabelle Goldman MD, [facility] CPT- 4: 29420 08/15/2016 ([id number]) 04326 EST. PATIENT, LEVEL III Diagnosis: Acute recurrent maxillary sinusitis[ICD10: J01.01] Diagnosis: Low back pain[ICD10: M54.5] Shahida Goldman MD, [facility] CPT-4: 54324 06/07/2016 ([id number]) Miscellaneous no charge Diagnosis: Essential (primary) hypertension[ICD10: I10] Shahida Goldman MD, [facility] CPT-4: 43167 03/15/2016 78633 EST. PATIENT, LEVEL IV Diagnosis: Essential (primary) hypertension[ICD10: I10] Diagnosis: Headache[ICD10: R51] Diagnosis: Generalized anxiety disorder[ICD10: F41.1] Shahida Goldman MD, [facility] CPT-4: 09266 03/14/2016 36813 EST. PATIENT, LEVEL III Diagnosis: Laceration without foreign body, left lower leg, initial encounter[ICD10: S81.812A] Isabelle Goldman MD, [facility] CPT-4: 57829 02/22/2016 ([id number]) 57771 EST. PATIENT, LEVEL III Diagnosis: Acute recurrent maxillary sinusitis[ICD10: J01.01] Diagnosis: Cough[ICD10: R05] Diagnosis: Allergic rhinitis due to pollen[ICD10: J30.1] Shahida Goldman MD, [facility] CPT-4: 62779 12/07/2015 ([id number]) 22223 EST. PATIENT, LEVEL IV Diagnosis: Essential (primary) hypertension[ICD10: I10] Diagnosis: Acute recurrent maxillary sinusitis[ICD10: J01.01] Diagnosis: Generalized anxiety disorder[ICD10: F41.1] Diagnosis: Cervicalgia[ICD10: M54.2] Diagnosis: Generalized intra-abdominal and pelvic swelling, mass and lump[ICD10: R19.07] Melba Goldman MD, [facility] CPT-4: 66692 11/24/2015 32968 EST. PATIENT, LEVEL III Diagnosis: Other migraine, intractable, without status migrainosus[ICD10: G43.819] Isabelle Goldman MD, [facility] CPT-4: 71596 08/27/2015 91676 EST. PATIENT, LEVEL III Diagnosis: Acute recurrent maxillary sinusitis[ICD10: J01.01] Diagnosis: Candidal stomatitis[ICD10: B37.0] Diagnosis: Acute laryngopharyngitis[ICD10: J06.0] Isabelle Goldman MD, [facility] CPT- 4: 86912 08/10/2015 38566 EST. PATIENT, LEVEL III Diagnosis: Superficial foreign body of left hand, initial encounter[ICD10: S60.552A] Melba Goldman MD, [facility] CPT-4: 42605 07/28/2015 ([id number]) 81641 EST. PATIENT, LEVEL III Diagnosis: Essential (primary) hypertension[ICD10: I10] Diagnosis: Tinea cruris[ICD10: B35.6] Diagnosis: Abnormal levels of other serum enzymes[ICD10: R74.8] Shahida Glodman MD, [facility] CPT-4: 61745 06/11/2015 ([id number]) 13848 EST. PATIENT, LEVEL IV Diagnosis: ESSENTIAL HYPERTENSION[ICD9: 401.9] Diagnosis: Hypothyroid[ICD9: 244.9] Diagnosis: ALLERGIC RHINITIS[ICD9: 477.9] Diagnosis: Anxiety[ICD9: 300.00] Diagnosis: Sleep apnea[ICD9: 780.57] Shahida Goldman MD, [facility] CPT-4: 56696 03/19/2015 ([id number]) 08349 EST. PATIENT, LEVEL III Diagnosis: ACUTE SINUSITIS[ICD9: 461.9] Celi Goldman MD, [facility] CPT-4: 70163 01/07/2015 ([id number]) 87838 EST. PATIENT, LEVEL III Diagnosis: Conjunctivitis[ICD9: 372.30] Shahida Goldman MD, [facility] CPT-4: 01374 09/23/2014 71257 EST. PATIENT, LEVEL II Diagnosis: Noninfected skin tear of leg[ICD9: 891.0] Shahida Goldman MD, [facility] CPT-4: 68325 08/05/2014 ([id number]) 47712 EST. PATIENT, LEVEL III Diagnosis: Chronic maxillary sinusitis[ICD9: 473.0] Shahida Goldman MD, [facility] CPT-4: 83206 06/23/2014 18512 EST. PATIENT, LEVEL II Diagnosis: Headache[ICD9: 784.0] Shahida Goldman MD, [facility] CPT-4: 14455 06/05/2014 ([id number]) 41556 EST. PATIENT, LEVEL III Diagnosis: Abrasion of right leg[ICD9: 916.0] Diagnosis: Headache[ICD9: 784.0] Diagnosis: ALLERGIC RHINITIS[ICD9: 477.9] Shahida Goldman MD, [facility] CPT-4: 63572 04/03/2014 51648 EST. PATIENT, LEVEL II Diagnosis: Tinea corporis[ICD9: 110.5] Diagnosis: Exposure to scabies[ICD9: V01.89] Shahida Goldman MD, [facility] CPT- 4: 18745 03/07/2014 ([id number]) 65769 EST. PATIENT, LEVEL III Diagnosis: ESSENTIAL HYPERTENSION[SNOMED: 74465112] Diagnosis: OSTEOARTH NOS-UNSPEC[ICD9: 715.90] Diagnosis: Lumbago[ICD9: 724.2] Diagnosis: Cervicalgia[ICD9: 723.1] Shahida Goldman MD, [facility] CPT-4: 81602 11/21/2013 ([id number]) 81785 EST. PATIENT, LEVEL III Diagnosis: DEPRESSIVE DISORDER NEC[ICD9: 311] Diagnosis: Paronychia[ICD9: 681.9] Melba Goldman MD, [facility] CPT-4: 85630 09/24/2013 ([id number]) 37530 EST. PATIENT, LEVEL III Diagnosis: Paronychia[ICD9: 681.9] Diagnosis: Cellulitis[ICD9: 682.9] Melba Goldman MD, [facility] CPT-4: 55103 09/19/2013 ([id number]) 90545 EST. PATIENT, LEVEL III Diagnosis: Conjunctivitis[ICD9: 372.30] Diagnosis: Thrush[ICD9: 112.0] Shahida Goldman MD, [facility] CPT-4: 30572 08/05/2013 ([id number]) 79663 EST. PATIENT, LEVEL III Diagnosis: ACUTE MAXILLARY SINUSITIS[ICD9: 461.0] Diagnosis: COUGH[ICD9: 786.2] Diagnosis: Insomnia[ICD9: 780.52] Diagnosis: ESOPHAGEAL REFLUX[ICD9: 530.81] Melba Goldman MD, [facility] CPT-4: 82799 07/10/2013 ([id number]) Miscellaneous no charge Diagnosis: ESSENTIAL HYPERTENSION[SNOMED: 82874184] Melba Goldman MD, [facility] CPT-4: 36637 05/13/2013 ([id number]) 04960 EST. PATIENT, LEVEL IV Diagnosis: ESSENTIAL HYPERTENSION[SNOMED: 01755932] Diagnosis: HYPOTHYROIDISM[ICD9: 244.9] Diagnosis: OSTEOARTH NOS-UNSPEC[ICD9: 715.90] Melba Goldman MD, [facility] CPT- 4: 68653 05/07/2013 ([id number]) 27093 EST. PATIENT, LEVEL IV Diagnosis: Osteoarthritis[ICD9: 715.90] Diagnosis: Knee pain, bilateral[ICD9: 719.46] Diagnosis: Hip pain[ICD9: 719.45] Melba Goldman MD, [facility] CPT-4: 09164 12/03/2012 ([id number]) 97883 EST. PATIENT, LEVEL III Diagnosis: Thrush[ICD9: 112.0] Melba Goldman MD [facility] CPT-4: 83172 09/24/2012 ([id number]) 79946 EST. PATIENT, LEVEL IV Diagnosis: ESSENTIAL HYPERTENSION[SNOMED: 79033149] Diagnosis: Thrush[ICD9: 112.0] Diagnosis: Sleep apnea[ICD9: 780.57] Melba Goldman MD, [facility] CPT-4: 67662 09/10/2012 ([id number]) 35179 EST. PATIENT, LEVEL IV Diagnosis: Esophageal reflux[ICD9: 530.81] Diagnosis: Hypothyroid[ICD9: 244.9] Diagnosis: JOINT PAIN-MULT JOINTS[ICD9: 719.49] Diagnosis: ALLERGIC RHINITIS[ICD9: 477.9] Melba Goldman MD, [facility] CPT-4: 12816 08/08/2012 ([id number]) 00555 EST. PATIENT, LEVEL IV Diagnosis: Urinary frequency[ICD9: 788.41] Diagnosis: EDEMA[ICD9: 782.3] Diagnosis: HYPOTHYROIDISM[ICD9: 244.9] Diagnosis: Fatigue[ICD9: 780.79] Melba Goldman MD, [facility] CPT-4: 52981 02/15/2012 ([id number]) 51428 EST. PATIENT, LEVEL IV Diagnosis: Abdominal pain[ICD9: 789.00] Diagnosis: Fatigue[ICD9: 780.79] Diagnosis: Nausea[ICD9: 787.02] Melba Goldman MD, [facility] CPT-4: 23639 11/10/2011 66411 EST. PATIENT, LEVEL IV Diagnosis: ESSENTIAL HYPERTENSION[SNOMED: 34999874] Diagnosis: DIARRHEA[ICD9: 787.91] Diagnosis: DEPRESSIVE DISORDER NEC[ICD9: 311] Diagnosis: Irritable bowel disease[ICD9: 564.1] Melba Goldman MD, [facility] CPT- 4: 56054 08/01/2011 60082 EST. PATIENT, LEVEL III Diagnosis: ACUTE SINUSITIS[ICD9: 461.9] Diagnosis: Cough[ICD9: 786.2] Shahida Goldman MD, [facility] CPT-4: 71284 07/14/2011 15743 EST. PATIENT, LEVEL IV Diagnosis: VACCIN FOR INFLUENZA[ICD9: V04.81] Diagnosis: ESSENTIAL HYPERTENSION[SNOMED: 39175744] Diagnosis: GENERALIZED ANXIETY DISEASE[ICD9: 300.02] Diagnosis: SLEEP DISTURBANCES[ICD9: 780.50] Shahida Goldman MD, [facility] CPT- 4: 01252 05/23/2011 23020 EST. PATIENT, LEVEL III Diagnosis: ACUTE SINUSITIS[ICD9: 461.9] Diagnosis: ALLERGIC RHINITIS[ICD9: 477.9] Diagnosis: Cough[ICD9: 786.2] Shahida Goldman MD, [facility] CPT-4: 23369 05/03/2011 25033 EST. PATIENT, LEVEL IV Diagnosis: ESSENTIAL HYPERTENSION[SNOMED: 26836552] Diagnosis: DEPRESSIVE DISORDER NEC[ICD9: 311] Diagnosis: Fatigue[ICD9: 780.79] Shahida Goldman MD, [facility] CPT-4: 90685 04/25/2011 Plan of Care Planned Activity Notes Codes Status Date Appointment: Nurse Visit 02/14/2018 Appointment: Nurse Visit [...] acute concerns. 02/07/2018 Appointment: [facility] (15 min) Moderate 02/07/2018 Patient [...] fatigue 01/19/2018 Appointment: [phone] [facility] [place] [address] (15 min) Moderate 01/19/2018 Patient Education: Patient [...] surrogate. 11/23/2017 Appointment: [facility] [phone] [facility] [facility] - Annual Wellness Visit 11/23/2017 [...] show improvement. 09/12/2017 Appointment: Isabelle Orozco WPtel: [address] [place], [place] [phone] (15 min) Moderate 09/12/2017 Patient Education: Patient [...] allergy spray. 07/25/2017 Appointment: Isabelle Orozco WPtel: [address] [place], [place] [address] (30 min) Complex 07/25/2017 Patient Education: Patient [...] available 06/27/2017 Appointment: Shahida Manzo WPtel: [phone] [facility] [place] [address] (15 min) Moderate 06/27/2017 Patient Education: Patient [...] not improving. 05/08/2017 Appointment: Shahida Manzo WPtel: [facility] (15 min) Moderate 05/08/2017 Patient Education: Patient [...] show improvement. 03/14/2017 Appointment: Shahida Manzo WPtel: [facility]8 [phone] (15 min) Moderate 03/14/2017 Patient Education: Patient Medication Summary Completed 03/14/2017 Appointment: Shahida Manzo WPtel: [facility]0 [phone] (15 min) Moderate 02/21/2017 Visit Plan: [...] improving. 02/20/2017 Appointment: [facility]rozco [facility] [phone] [facility] (30 min) Complex 02/20/2017 Patient Education: [...] use 02/06/2017 [facility]ment[phone] (15 min) Moderate 02/06/2017 Patient Education: [...] this patient. 12/05/2016 Appointment: [phone] [facility] [facility] 12/05/2016 Patient Education: Patient Medication Summary Completed 12/05/2016 Visit Plan: Sinusitis - Pt has acute infection - pain in face, maxillary region, Pt informed to use decongestant, RX given to patient, sinus rinses also recommended. Call if symptoms do not show improvement. Dysuria- culture urine 11/28/2016 Appointment: Shahida Manzo [facility]Pt[facility] [phone] [phone] (15 min) Moderate 11/28/2016 Patient [...] control. 11/07/2016 Appointment: Isabelle Orozco [facility]Ptel[facility] [phone] [facility] [facility] - Annual Wellness Visit 11/07/2016 [...] spray. 08/15/2016 Appointment: Isabelle Orozco WPtel: [facility] (15 min) Moderate 08/15/2016 Patient [...] use. 06/07/2016 Appointment: Shahida Manzo [facility] [phone] [phone] (10 min) Simple 06/07/2016 Patient [...] in the office today 03/14/2016 Appointment: Shahida Manoz WPtel: [phone] [phone] (15 min) Moderate 03/14/2016 Patient Education: Patient Medication Summary Completed 03/14/2016 Care Plan: COMPLETE CBC AUTOMATED LOINC : 19331-2 Pending 03/14/2016 Visit Plan: Cellulitis - The patient was instructed in appropriate wound care. The patient was instructed to use the antibiotic ointment as per RX. The patient is to call for any change in symptoms, increase in size of the lesion, increase in pain. 02/22/2016 Appointment: Isabel[facility] Orozco [facility]Pt[facility] [phone] [facility] (15 min) Moderate 02/22/2016 Patient [...] pt to follow up with specialist at [address] - she needs to pursue treatment. Anxietly - medications unchanged. colonoscopy with dr. dai 11/24/2015 Appointment: Melba Goldman WPtel: [facility] (30 min) [facility] 11/24/2015 Patient Education: Patient Medication Summary Completed 11/24/2015 Patient Education: Obesity Completed 11/24/2015 Patient Education: Hypertension Completed 11/24/2015 Patient Education: .Cervicalgia Neck Pain Completed 11/24/2015 Care Plan: Referral Order SNOMED-CT : [id number] Ordered 11/24/2015 Visit Plan: Acute Migraine - [...] to monitor 06/11/2015 Appointment: Shahida Manzo WPtel: [address] [place] [address] (15 min) Moderate 06/11/2015 Patient Education: Patient [...] OFFICE Sleep apnea-patient needs new CPAP-will contact [facility] patient 03/19/2015 Visit Plan: Hypertension - [...] OFFICE Sleep apnea-patient needs new CPAP-will contact [facility] patient Pt reports that she [...] OFFICE Sleep apnea-patient needs new CPAP-[facility] Pt reports that she uses [...] Patient Medication Summary Completed 01/07/2015 Patient Education: [facility] - Saving AutoInj - 18+ - [...] areas dry Exposure to scabies-RX sent to [facility]. 03/07/2014 Appointment: Melba Goldman [facility]Ptel[facility] [phone] [facility] rash 03/07/2014 Patient Education: Patient Medication [...] change in blood pressure readings at home. Zzbnygp-vxwnjqxihsi-pnecohpk duragesic patch-appt with Dr Ortiz for pain management 11/21/2013 Appointment: Shahida Manzo WPtel: [phone] [phone] Follow up 11/21/2013 Patient Education: Patient Medication Summary Completed 11/21/2013 Patient Education: Hypertension Completed 11/21/2013 Patient Education: .Cervicalgia Neck Pain Completed 11/21/2013 Appointment: Melba Goldman WPtel: [facility]5 [facility] Other 11/19/2013 Appointment: Melba Goldman WPtel: [address] [place] [address] Follow up 11/06/2013 Appointment: Melba Goldman WPtel: [address] [place] [address] Lab Draw 10/15/2013 Patient Education: Patient Medication [...] BEDTIME 09/24/2013 Appointment: Shahida Manzo WPtel: [address] [place], [place] [phone] Other 09/24/2013 Patient Education: Patient Medication Summary Completed 09/24/2013 Visit Plan: Paronychia/Cellulitis - continue with oral antibiotics as previously directed, return to clinic as previously directed, call for acute change in symptoms, worsening redness, warmth, discharge. 09/19/2013 Appointment: Melba Goldman WPtel: [facility]0 [facility] Other 09/19/2013 Patient Education: Patient Medication Summary Completed 09/19/2013 Visit Plan: Conjunctivitis - rx for eye drops/lube sent electronically to the patient's pharmacy. The patient has been instructed to cleanse affected eye with warm washcloth, then place medication into affected eye four times daily. Thrush-refill nystatin-call if symptoms do not resolve 08/05/2013 Appointment: Shahida Manzo [facility] [phone] [phone] [facility] 08/05/2013 Patient Education: Patient Medication Summary [...] Completed 06/03/2013 Appointment: Melba Goldman WPtel: [phone] [facility] Nurse Visit 05/13/2013 Patient Education: Patient Medication [...] control. 05/07/2013 Appointment: Melba Goldman WPtel: [phone] [facility] Follow up 05/07/2013 Patient Education: Patient Medication Summary Completed 05/07/2013 Patient Education: Hypertension Completed 05/07/2013 Patient Education: Patient Medication Summary Completed 04/30/2013 Patient Education: Hypertension Completed 04/30/2013 Visit Plan: Arthritis- occasionally uncontrolled symptoms- recommend pt to take antiinflammatory as directed for pain control. Use tylenol for break through pain symptoms. 12/03/2012 Appointment: Melba Goldman WPtel: [phone] [facility] [facility] Follow up 12/03/2012 Patient Education: Patient [...] resolve 09/24/2012 Appointment: [phone] [phone] [facility] 09/24/2012 Patient Education: Patient Medication [...] with diflucan 09/10/2012 Appointment: [phone] [facility] [facility] 09/10/2012 Patient Education: [...] symptoms. 08/08/2012 Appointment: Shahida Manzo WPtel: [phone] [facility] Follow up 08/08/2012 Patient Education: Patient Medication Summary Completed 08/08/2012 Patient Education: Patient Medication Summary Completed 08/07/2012 Patient Education: Hypertension Completed 08/07/2012 Appointment: Melba Goldman WPtel: [facility] Lab Draw 02/16/2012 Patient Education: [...] Needs labs. 02/15/2012 Appointment: Melba Goldman WPtel: [address] [place], [place] [id number] [place] Other 02/15/2012 Patient Education: Patient Medication Summary Completed 02/15/2012 Visit Plan: Abdominal pain - ultrasound tomorrow AM nothing to eat before the ultrasound from 11pm tonight bland diet. Nausea - worse with fatty foods, recommended low fat/bland diet, call if symptoms worsening. 11/10/2011 Appointment: Melba Goldman WPtel: [facility] [place] Other 11/10/2011 Patient Education: Patient Medication [...] the stools. 08/01/2011 Appointment: Melba Goldman WPtel[facility] [place] Other 08/01/2011 Patient Education: [...] [place] 07/14/2011 Appointment: [facility] [phone] [phone] [place] Other 07/14/2011 Patient Education: [...] the office. 05/23/2011 Appointment: Shahida Manzo WPtel: [address] [place] [address] Other 05/23/2011 Patient Education: Patient Medication Summary [...] cough med 05/03/2011 Appointment: Shahida Manzo WPtel: [address] [place] [address] Other 05/03/2011 Patient Education: Patient Medication Summary [...] symptoms. 04/25/2011 Appointment: Shahida Manzo WPtel: [address] [place], [place] [phone] Other 04/25/2011 Patient Education: Patient Medication Summary [...] nystatin-call if symptoms do not resolve . Skin tear of left and right [...] bleeding. Patient verbalized understandig of plan. . Abdominal pain/Diverticulitis - pt sent for [...] if the symptoms are not improving. . Paronychia/Cellulitis - continue with oral antibiotics [...] pustular drainage, or any other acute concerns. increase bystolic to 15mg daily.. [...] based on previous levels of control. . Acute Migraine - pt has chronic [...] also provided for patient. Cough-refill cough med Gentamicin nasal spray to [facility] Increase prilosec to twice daily . [...] drainage, or any other acute concerns. . Paronychia-continue abx as previously prescribed. ROCEPHIN [...] OFFICE Sleep apnea-patient needs new CPAP-will contact [facility] [facility] TAPER OFF OF [place]-TAKE EVERY [...] OFFICE Sleep apnea-patient needs new CPAP-will contact [facility] patient Pt reports that she [...] OFFICE Sleep apnea-patient needs new CPAP-will contact [place] [facility] Pt reports that she uses [...] change in blood pressure readings at home. Hslahap-byrmbdeuwbk-fgnfyjpq duragesic patch-appt with Dr Ortiz for pain [...] diet to bulk up the stools. . Hypertension - well controlled - continue [...] mask fitted lindsay. Thrush- treating with diflucan Increase Synthroid to 100mcg po daily. Repeat [...]
--- OUTSIDE RECORDS SUMMARY | 2019-03-08 18:33 | XMS REPORT | CCD ---
Author Author [facility] Address [address] [place] [address] Phone Care Team Providers Care Lo[place]man Name Role Phone PP Unavailable CCM Unavailable Summary Purpose Interface Exchange Insurance Providers Payer name Policy type / Coverage type Covered constitution party ID Effective Begin Date Effective End Date [employer] Medicare Part B [id number] Unknown Family history Son Diagnosis Age At Onset Crohn's disease Unknown Brother Diagnosis Age At Onset Cardiovascular disease Unknown Mother Diagnosis Age At Onset Hypertension Unknown Father Diagnosis Age At Onset Cardiovascular disease Unknown Social History Social History Element Codes Description Effective Dates Marital status Unknown 04/22/2011 Number of children Unknown 3 1 son -Crohns 04/22/[address]: 093622069 Nonsmoker 04/22/2011 Allergies, Adverse Reactions, Alerts Allergies, Adverse Reactions, Alerts data not found Past Medical History Illness Codes Condition Status Onset Date Resolved Date Diarrhea, unspecified ICD- 9: 787.91 ICD-10: R19.7 Active 06/27/2017 Unknown Dysuria ICD-9: 788.1 ICD-10: R30.0 Active 05/04/2016 Unknown Generalized abdominal pain ICD-9: 789.07 ICD-10: R10.84 Active 09/12/2017 Unknown Other acute sinusitis ICD- 9: 461.8 ICD-10: J01.80 Active 08/14/2016 Unknown Other allergic rhinitis ICD-9: 477.8 ICD-10: J30.89 Active 08/14/2016 Unknown Acute laryngopharyngitis ICD-9: 465.0 ICD-10: J06.0 Active 08/14/2016 Unknown Cough ICD-9: 786.2 ICD-10: R05 Active 12/06/2015 Unknown Wheezing ICD-9: 786.07 ICD-10: R06.2 Active 07/25/2017 Unknown Acute recurrent maxillary sinusitis ICD-9: 461.0 ICD-10: J01.01 Active 06/06/2016 Unknown Cervicalgia ICD-9: 723.1 ICD-10: M54.2 Active [...] ICD-9: 296.32 ICD-10: F33.1 Active 12/05/2016 Unknown Encounter for general adult medical examination with abnormal findings ICD-9: V70.0 ICD-10: Z00.01 Active 11/07/2016 Unknown Hypothyroidism, unspecified ICD-9: 244.9 ICD-10: E03.9 Active 11/07/2016 Unknown Low back pain ICD-9: 724.2 ICD-10: [...] Problems Condition Codes Effective Dates Condition Status Diarrhea, unspecified ICD- 9: 787.91 ICD-10: R19.7 06/27/2017 Active Dysuria ICD-9: 788.1 ICD-10: R30.0 05/04/2016 Active Generalized abdominal pain ICD-9: 789.07 ICD-10: R10.84 09/12/2017 Active Other acute sinusitis ICD- 9: 461.8 ICD-10: J01.80 08/14/2016 Active Other allergic rhinitis ICD-9: 477.8 ICD-10: J30.89 08/14/2016 Active Acute laryngopharyngitis ICD-9: 465.0 ICD-10: J06.0 08/14/2016 Active Cough ICD-9: 786.2 ICD-10: R05 12/06/2015 Active Wheezing ICD-9: 786.07 ICD-10: R06.2 07/25/2017 Active Acute recurrent maxillary sinusitis ICD-9: 461.0 ICD-10: J01.01 06/06/2016 Active Cervicalgia ICD-9: 723.1 ICD-10: M54.2 06/05/2014 [...] moderate ICD-9: 296.32 ICD-10: F33.1 12/05/2016 Active Encounter for general adult medical examination with abnormal findings ICD-9: V70.0 ICD-10: Z00.01 11/07/2016 Active Hypothyroidism, unspecified ICD-9: 244.9 ICD-10: E03.9 11/07/2016 Active Low back pain ICD-9: 724.2 ICD-10: [...] Fill Instructions Lexapro 20 mg tablet RxNorm: 239465 TAKE ONE AND ONE-HALF TABLET BY MOUTH DAILY 09/15/2017 09/09/2018 Active Flagyl 500 mg tablet RxNorm: 795545 1 Tablet(s) PO TID 09/12/2017 09/21/2017 Active promethazine 25 mg tablet RxNorm: 820808 1 Tablet(s) PO TID as needed nausea and vomitting THIS WILL MAKE YOU SLEEPY 09/12/2017 No Stop Date Active Keflex 500 mg capsule RxNorm: 067036 1 Capsule(s) PO QID 08/25/2017 08/31/2017 Inactive [SAVINGS FOR UNINSURED PATIENTS -- BIN:[id number], PCN: ASPROD1, Group: [id number], ID# [id number], Process claim through [employer], for questions: . THIS IS NOT INSURANCE.] alprazolam 0.25 mg tablet RxNorm: 680206 1 Tablet(s) PO daily as needed 07/31/2017 10/28/2017 Active prednisone 20 mg tablet RxNorm: 888546 2 Tablet(s) PO daily 07/25/2017 07/29/2017 Inactive Augmentin 500 mg-125 mg tablet RxNorm: 060632 1 Tablet(s) PO TID 07/25/2017 08/03/2017 Inactive trazodone 50 mg tablet RxNorm: 719700 TAKE ONE AND ONE-HALF (1 1/2) TABLET BY MOUTH AT BEDTIME. MAY INCREASE TO 2 TABLETS AT BEDTIME NEEDED 06/30/2017 09/03/2017 Inactive Bystolic 10 mg tablet RxNorm: 580729 TAKE ONE TABLET BY MOUTH DAILY 06/30/2017 2017 Active hydrochlorothiazide 25 mg tablet RxNorm: 534116 TAKE ONE TABLET BY MOUTH DAILY 06/30/2017 03/26/2018 Active Phenergan with Codeine Syrup RxNorm: 5-10 Milliliter(s) PO Q6 PRN 06/27/2017 No Stop Date Active Flagyl 500 mg tablet RxNorm: 509334 1 Tablet(s) PO TID 06/27/2017 07/03/2017 Inactive Levaquin 500 mg tablet RxNorm: 323919 1 Tablet(s) PO daily 06/27/2017 07/03/2017 Inactive Kenalog 40 mg/mL suspension for injection RxNorm: 5629900 1 Milliliter(s) Inj 06/27/2017 06/27/2017 Inactive Nexium 40 mg capsule,delayed release RxNorm: 356061 1 Capsule(s) PO BID TAKE ONE CAPSULE BY MOUTH BID 05/22/2017 09/18/2017 Active Nexium 40 mg capsule,delayed release RxNorm: 600230 1 Capsule(s) PO BID TAKE ONE CAPSULE BY MOUTH BID 05/22/2017 05/21/2017 Inactive hydrocodone 10 mg-acetaminophen 325 mg tablet RxNorm: 660581 Tablet(s) PO TAKE ONE TO TWO TABLETS BY MOUTH EVERY 6 HOURS NEEDED FOR PAIN 05/17/2017 06/15/2017 Inactive Nexium 40 mg capsule,delayed release RxNorm: 809285 Capsule(s) TAKE ONE CAPSULE BY MOUTH BID 05/17/2017 05/21/2017 Inactive alprazolam 0.25 mg tablet RxNorm: 357760 1 Tablet(s) PO daily as needed 05/03/2017 07/01/2017 Inactive clotrimazole 1 % topical cream RxNorm: 904667 1 Application TOP BID 04/20/2017 07/18/2017 Inactive Levaquin 500 mg tablet RxNorm: 963432 1 Tablet(s) PO daily 04/20/2017 04/26/2017 Inactive Kenalog 40 mg/mL suspension for injection RxNorm: 3227635 Milliliter(s) Inj 04/20/2017 04/20/2017 Inactive nystatin 100,000 unit/gram topical powder RxNorm: 575948 1 Gram(s) APPLY TOPICALLY TWO TIMES A DAY 04/10/2017 07/08/2017 Inactive trazodone 50 mg tablet RxNorm: 412876 TAKE ONE AND ONE-HALF (1 1/2) TABLET BY MOUTH AT BEDTIME. MAY INCREASE TO 2 TABLETS AT BEDTIME NEEDED 03/28/2017 06/23/2017 Inactive Augmentin 875 mg-125 mg tablet RxNorm: 775339 1 Tablet(s) PO BID 03/14/2017 03/20/2017 Inactive Kenalog 40 mg/mL suspension for injection RxNorm: 6060651 1 Milliliter(s) Inj 03/14/2017 03/14/2017 Inactive Lexapro 20 mg tablet RxNorm: 253885 1.5 Tablet(s) PO daily 03/08/2017 03/07/2017 Inactive Lexapro 20 mg tablet RxNorm: 873919 1.5 Tablet(s) PO daily 03/08/2017 07/05/2017 Inactive alprazolam 0.25 mg tablet RxNorm: 176368 1 Tablet(s) PO daily as needed 02/23/2017 04/23/2017 Inactive (Response to an electronic controlled substance refill request - RxReferenceNumber: [id number]) Flagyl 500 mg tablet RxNorm: 790191 1 Tablet(s) PO TID 02/20/2017 03/01/2017 Inactive promethazine 25 mg tablet RxNorm: 397082 1 Tablet(s) PO TID as needed nausea 02/20/2017 03/01/2017 Inactive Cipro 500 mg tablet RxNorm: 673247 1 Tablet(s) PO BID 02/20/2017 03/01/2017 Inactive Flagyl 500 mg tablet RxNorm: 579082 1 Tablet(s) PO TID 02/09/2017 02/15/2017 Inactive Trintellix 10 mg tablet RxNorm: 6554814 1 Tablet(s) PO QAM 02/06/2017 03/07/2017 Inactive Efudex 5 % topical cream RxNorm: 537027 1 Application TOP BID use on skin spot on nose 02/06/2017 02/15/2017 Inactive Bystolic 10 mg tablet RxNorm: 800353 TAKE ONE TABLET BY MOUTH DAILY 02/03/2017 06/02/2017 Inactive Imitrex 50 mg tablet RxNorm: 682639 TAKE ONE TABLET BY MOUTH EVERY 8 HOURS NEEDED MAY REPEAT IN 1 HOUR OF INITIAL DOSE. DISCONTINUE FIORICET 12/22/2016 02/19/2017 Inactive Nexium 40 mg capsule,delayed release RxNorm: 136876 TAKE ONE CAPSULE BY MOUTH EVERY DAY 12/21/2016 05/16/2017 Inactive Lexapro 20 mg tablet RxNorm: 366704 Tablet(s) TAKE ONE TABLET BY MOUTH DAILY 12/05/2016 02/05/2017 Inactive Augmentin 875 mg-125 mg tablet RxNorm: 713307 1 Tablet(s) PO BID 11/28/2016 12/04/2016 Inactive ceftriaxone 500 mg solution for injection RxNorm: 9114376 1 Milliliter(s) Inj 11/28/2016 11/28/2016 Inactive hydrocodone 10 mg-acetaminophen 325 mg tablet RxNorm: 472054 Tablet(s) PO TAKE ONE TO TWO TABLETS BY MOUTH EVERY 6 HOURS NEEDED FOR PAIN 11/28/2016 05/16/2017 Inactive (Appended: Controlled substance eRx refill - RxReferenceNumber: [id number]) prednisone 20 mg tablet RxNorm: 154914 2 Tablet(s) PO daily 11/28/2016 12/02/2016 Inactive Synthroid 100 mcg tablet RxNorm: 535034 1 Tablet(s) PO daily 11/21/2016 05/19/2017 Inactive Brand name only! trazodone 50 mg tablet RxNorm: 989388 TAKE 1 AND 1/2 TABLETS EVERY NIGHT AT BEDTIME , MAY INCREASE TO 2 TABLETS AT BEDTIME NEEDED 11/21/2016 02/16/2017 Inactive trazodone 50 mg tablet RxNorm: 022917 Tablet(s) TAKE 1 AND 1/2 TABLETS EVERY NIGHT AT BEDTIME , MAY INCREASE TO 2 TABLETS AT BEDTIME NEEDED 11/21/2016 11/20/2016 Inactive Synthroid 100 mcg tablet RxNorm: 109279 1 Tablet(s) PO daily TAKE ONE TABLET BY MOUTH DAILY 11/08/2016 11/20/2016 Inactive ceftriaxone 500 mg solution for injection RxNorm: 4867836 Inj 11/07/2016 11/07/2016 Inactive Kenalog 40 mg/mL suspension for injection RxNorm: 1711659 Milliliter(s) Inj 11/07/2016 11/07/2016 Inactive Xanax 0.25 mg tablet RxNorm: 980899 1 Tablet(s) PO daily as needed 10/31/2016 05/02/2017 Inactive alprazolam 0.25 mg tablet RxNorm: 685194 1 Tablet(s) PO daily as needed 10/21/2016 12/18/2016 Inactive (Response to an electronic controlled substance refill request - RxReferenceNumber: [id number]) hydrochlorothiazide 25 mg tablet RxNorm: 422554 TAKE ONE TABLET BY MOUTH DAILY 10/11/2016 04/08/2017 Inactive Xanax 0.25 mg tablet RxNorm: 727976 1 Tablet(s) PO daily as needed 08/23/2016 10/19/2016 Inactive Flonase Allergy Relief 50 mcg/actuation nasal spray,suspension RxNorm: 6247607 1 [place] NASAL daily 08/15/2016 No Stop Date Active amoxicillin 500 mg capsule RxNorm: 482352 1 Capsule(s) PO TID 08/15/2016 08/24/2016 Inactive Bystolic 10 mg tablet RxNorm: 119382 TAKE ONE TABLET BY MOUTH DAILY 08/01/2016 12/28/2016 Inactive trazodone 50 mg tablet RxNorm: 820620 TAKE 1 AND 1/2 TABLETS EVERY NIGHT AT BEDTIME , MAY INCREASE TO 2 TABLETS AT BEDTIME NEEDED 07/25/2016 11/11/2016 Inactive alprazolam 0.25 mg tablet RxNorm: 648615 1 Tablet(s) PO daily as needed 07/25/2016 08/22/2016 Inactive (Response to an electronic controlled substance refill request - RxReferenceNumber: [id number]) Imitrex 50 mg tablet RxNorm: 076716 1 Tablet(s) PO Q8 as needed may repeat x1 dose in 1 hour of inital dose. 07/13/2016 No Stop Date Active Lexapro 20 mg tablet RxNorm: 169665 TAKE 1/2 TABLET BY MOUTH DAILY FOR 10 DAYS, THEN TAKE ONE TABLET BY MOUTH DAILY 06/27/2016 11/23/2016 Inactive Synthroid 100 mcg tablet RxNorm: 264934 TAKE ONE TABLET BY MOUTH DAILY 06/20/2016 11/07/2016 Inactive Augmentin 500 mg-125 mg tablet RxNorm: 834445 1 Tablet(s) PO TID 06/07/2016 06/13/2016 Inactive hydrocodone 10 mg-acetaminophen 325 mg tablet RxNorm: 631874 Tablet(s) PO TAKE ONE TO TWO TABLETS BY MOUTH EVERY 6 HOURS NEEDED FOR PAIN 06/07/2016 11/27/2016 Inactive (Appended: Controlled substance eRx refill - RxReferenceNumber: [id number]) hydrochlorothiazide 25 mg tablet RxNorm: 862184 TAKE ONE TABLET BY MOUTH DAILY 03/14/2016 09/09/2016 Inactive Edarbi 40 mg tablet RxNorm: 6641255 1 Tablet(s) PO daily 03/14/2016 06/06/2016 Inactive trazodone 50 mg tablet RxNorm: 721310 Tablet(s) TAKE 1 AND 1/2 TABLET AT BEDTIME. MAY INCREASE TO 2 TABLETS IF NECESSARY 02/25/2016 07/05/2016 Inactive Imitrex 50 mg tablet RxNorm: 499808 1 Tablet(s) PO Q8 as needed may repeat x1 dose in 1 hour of inital dose. 02/25/2016 07/12/2016 Inactive dc fioricet Xanax 0.25 mg tablet RxNorm: 788706 1 Tablet(s) PO daily as needed 02/24/2016 07/21/2016 Inactive mupirocin 2 % topical ointment RxNorm: 599198 1 TOP BID 02/22/2016 No Stop Date Active Bactrim DS 800 mg-160 mg tablet RxNorm: 064404 1 Tablet(s) PO BID 02/22/2016 03/02/2016 Inactive Fioricet 50 mg-325 mg-40 mg tablet RxNorm: 418533 Tablet(s) TAKE ONE TABLET BY MOUTH EVERY 4 HOURS NEEDED FOR headache 02/12/2016 02/24/2016 Inactive (Response to an electronic controlled substance refill request - RxReferenceNumber: [id number]) Fioricet 50 mg-325 mg-40 mg tablet RxNorm: 421724 Tablet(s) TAKE ONE TABLET BY MOUTH EVERY 4 HOURS NEEDED FOR headache 02/12/2016 02/11/2016 Inactive (Response to an electronic controlled substance refill request - RxReferenceNumber: [id number]) Nexium 40 mg capsule,delayed release RxNorm: 147856 TAKE ONE CAPSULE BY MOUTH EVERY DAY 02/01/2016 10/27/2016 Inactive Bystolic 10 mg tablet RxNorm: 503905 Tablet(s) TAKE ONE TABLET BY MOUTH DAILY 01/06/2016 07/03/2016 Inactive Xanax 0.25 mg tablet RxNorm: 566885 1 Tablet(s) PO daily as needed 12/28/2015 02/23/2016 Inactive Levaquin 500 mg tablet RxNorm: 754575 1 Tablet(s) PO daily take a probiotic daily 12/14/2015 02/11/2016 Inactive Levaquin 500 mg tablet RxNorm: 837681 1 Tablet(s) PO daily take a probiotic daily 12/14/2015 12/13/2015 Inactive prednisone 20 mg tablet RxNorm: 915652 1 Tablet(s) PO BID 12/07/2015 12/13/2015 Inactive Augmentin 875 mg-125 mg tablet RxNorm: 729627 1 Tablet(s) PO BID 12/07/2015 12/13/2015 Inactive ceftriaxone 500 mg solution for injection RxNorm: 2215442 Inj 12/07/2015 12/07/2015 Inactive Phenergan with Codeine Syrup RxNorm: 5-10 Milliliter(s) PO Q6 PRN 12/07/2015 06/26/2017 Inactive alprazolam 0.25 mg tablet RxNorm: 988607 1 Tablet(s) PO daily as needed 11/27/2015 12/25/2015 Inactive (Response to an electronic controlled substance refill request - RxReferenceNumber: [id number]) trazodone 50 mg tablet RxNorm: 750196 TAKE 1 AND 1/2 TABLET AT BEDTIME FOR 2 WEEKS, MAY INCREASE TO 2 TABLETS IF NECESSARY AFTER THAT 11/26/2015 02/24/2016 Inactive ceftriaxone 500 mg solution for injection RxNorm: 6714009 Milliliter(s) Inj 11/24/2015 11/24/2015 Inactive prednisone 10 mg tablet RxNorm: 596484 3 Tablet(s) PO daily 11/24/2015 11/28/2015 Inactive cefdinir 300 mg capsule RxNorm: 063018 1 Capsule(s) PO BID 11/24/2015 11/30/2015 Inactive Kenalog 40 mg/mL suspension for injection RxNorm: 2156782 1 Milliliter(s) Inj 11/24/2015 11/24/2015 Inactive Lexapro 20 mg tablet RxNorm: 134429 TAKE 1/2 TABLET BY MOUTH DAILY FOR 10 DAYS, THEN TAKE ONE TABLET BY MOUTH DAILY 11/23/2015 05/20/2016 Inactive Norvasc 10 mg tablet RxNorm: 989888 Tablet(s) PO TAKE ONE TABLET BY MOUTH EVERY DAY 10/26/2015 02/22/2016 Inactive Lipitor 10 mg tablet RxNorm: 911116 Tablet(s) TAKE ONE TABLET BY MOUTH EVERY DAY 10/26/2015 11/06/2016 Inactive hydrochlorothiazide 25 mg tablet RxNorm: 375232 TAKE ONE TABLET BY MOUTH DAILY 10/20/2015 01/17/2016 Inactive alprazolam 0.25 mg tablet RxNorm: 432801 1 Tablet(s) PO daily as needed 08/27/2015 11/22/2015 Inactive (Response to an electronic controlled substance refill request - RxReferenceNumber: [id number]) promethazine 25 mg/mL injection solution RxNorm: 324430 Milliliter(s) Inj 08/27/2015 08/27/2015 Inactive ketorolac 60 mg/2 mL intramuscular solution RxNorm: 084132 Milliliter(s) IM 08/27/2015 08/27/2015 Inactive Lexapro 20 mg tablet RxNorm: 121574 TAKE 1/2 TABLET BY MOUTH DAILY FOR 10 DAYS, THEN TAKE ONE TABLET BY MOUTH DAILY 08/13/2015 11/10/2015 Inactive Flonase 50 mcg/actuation nasal spray,suspension RxNorm: 772552 PLACE 1 SPRAY IN EACH NOSTRIL DAILY 08/13/2015 02/08/2016 Inactive Augmentin 500 mg-125 mg tablet RxNorm: 697931 1 Tablet(s) PO TID 08/10/2015 08/16/2015 Inactive Kenalog 40 mg/mL suspension for injection RxNorm: 5095760 Milliliter(s) Inj 08/10/2015 08/10/2015 Inactive ceftriaxone 500 mg solution for injection RxNorm: 1021339 Inj 08/10/2015 08/10/2015 Inactive nystatin 100,000 unit/mL oral suspension RxNorm: 643676 4 Milliliter(s) PO QID 08/10/2015 08/16/2015 Inactive trazodone 50 mg tablet RxNorm: 862639 TAKE 1 AND 1/2 TABLET AT BEDTIME FOR 2 WEEKS, MAY INCREASE TO 2 TABLETS IF NECESSARY AFTER THAT 07/31/2015 11/25/2015 Inactive ceftriaxone 500 mg solution for injection RxNorm: 9336922 1 Milliliter(s) Inj 07/28/2015 07/28/2015 Inactive Bactrim DS 800 mg-160 mg tablet RxNorm: 644817 1 Tablet(s) PO BID 07/28/2015 08/06/2015 Inactive Bactroban 2 % topical ointment RxNorm: 232053 1 Application TOP BID 07/28/2015 08/06/2015 Inactive Diflucan 150 mg tablet RxNorm: 488618 1 Tablet(s) PO daily 06/11/2015 06/17/2015 Inactive clotrimazole 1 % topical cream RxNorm: 564857 1 Application TOP BID 06/11/2015 07/10/2015 Inactive Bystolic 10 mg tablet RxNorm: 702669 TAKE ONE TABLET BY MOUTH DAILY 06/08/2015 12/04/2015 Inactive alprazolam 0.25 mg tablet RxNorm: 488786 1 Tablet(s) PO daily as needed 06/01/2015 08/25/2015 Inactive (Response to an electronic controlled substance refill request - RxReferenceNumber: [id number]) Fioricet 50 mg-325 mg-40 mg tablet RxNorm: 894642 Tablet(s) TAKE ONE TABLET BY MOUTH EVERY 4 HOURS NEEDED FOR headache 05/28/2015 06/08/2015 Inactive (Response to an electronic controlled substance refill request - RxReferenceNumber: [id number]) trazodone 50 mg tablet RxNorm: 683487 TAKE 1 AND 1/2 TABLET AT BEDTIME FOR 2 WEEKS, MAY INCREASE TO 2 TABLETS IF NECESSARY AFTER THAT 05/25/2015 08/22/2015 Inactive trazodone 50 mg tablet RxNorm: 645193 TAKE 1 AND 1/2 TABLET AT BEDTIME FOR 2 WEEKS, MAY INCREASE TO 2 TABLETS IF NECESSARY AFTER THAT 05/25/2015 05/24/2015 Inactive Synthroid 100 mcg tablet RxNorm: 460515 TAKE ONE TABLET BY MOUTH DAILY 04/23/2015 01/17/2016 Inactive Lipitor 10 mg tablet RxNorm: 214862 TAKE ONE TABLET BY MOUTH EVERY DAY 04/23/2015 10/25/2015 Inactive Kenalog 40 mg/mL suspension for injection RxNorm: 4107253 Milliliter(s) Inj 03/19/2015 03/19/2015 Inactive Lexapro 20 mg tablet RxNorm: 673239 1 Tablet(s) PO daily 03/19/2015 07/16/2015 Inactive 1/2 tab daily x 10 days then 1 tab daily hydrocodone 10 mg-acetaminophen 325 mg tablet RxNorm: 627493 Tablet(s) PO TAKE ONE TO TWO TABLETS BY MOUTH EVERY 6 HOURS NEEDED FOR PAIN 03/19/2015 06/06/2016 Inactive (Appended: Controlled substance eRx refill - RxReferenceNumber: [id number]) Carafate 1 gram tablet RxNorm: 853150 1 Tablet(s) PO AC & HS 03/19/2015 06/16/2015 Inactive dissolve in water and take as a slurry hydrochlorothiazide 25 mg tablet RxNorm: 205539 1 Tablet(s) PO daily 03/12/2015 09/07/2015 Inactive Nexium 40 mg capsule,delayed release RxNorm: 469533 TAKE ONE CAPSULE BY MOUTH EVERY DAY 02/26/2015 12/22/2015 Inactive Cymbalta 60 mg capsule,delayed release RxNorm: 277318 TAKE ONE CAPSULE BY MOUTH TWICE A DAY 02/23/2015 03/18/2015 Inactive alprazolam 0.25 mg tablet RxNorm: 580718 1 Tablet(s) PO daily as needed 02/11/2015 05/10/2015 Inactive (Response to an electronic controlled substance refill request - RxReferenceNumber: [id number]) trazodone 50 mg tablet RxNorm: 907868 TAKE 1 AND 1/2 TABLET AT BEDTIME FOR 2 WEEKS, MAY INCREASE TO 2 TABLETS IF NECESSARY AFTER THAT 01/27/2015 05/24/2015 Inactive Augmentin 500 mg-125 mg tablet RxNorm: 525260 1 Tablet(s) PO TID 01/07/2015 01/13/2015 Inactive gentamicin 0.3 % eye drops RxNorm: 648087 3 Drop(s) OPH QID 01/07/2015 01/13/2015 Inactive [AttnRPh: Saving apply/adjudicate RxGRP:[id number] RxBIN:[id number] RxPCN: ID#:[id number]] scopolamine 1.5 mg transdermal 72 hour patch RxNorm: 467774 1 Patch TD q72 hours 01/07/2015 11/23/2015 Inactive Synthroid 100 mcg tablet RxNorm: 599906 TAKE ONE TABLET BY MOUTH ONCE A DAY 01/06/2015 04/22/2015 Inactive nystatin 100,000 unit/gram topical powder RxNorm: 759233 APPLY TOPICALLY TWO TIMES A DAY 12/18/2014 03/17/2015 Inactive alprazolam 0.25 mg tablet RxNorm: 423603 TAKE ONE TABLET BY MOUTH DAILY NEEDED 10/30/2014 11/28/2014 Inactive (Response to an electronic controlled substance refill request - RxReferenceNumber: [id number]) alprazolam 0.25 mg tablet RxNorm: 180866 Tablet(s) TAKE ONE TABLET BY MOUTH DAILY 10/30/2014 10/29/2014 Inactive (Response to an electronic controlled substance refill request - RxReferenceNumber: [id number]) Lipitor 10 mg tablet RxNorm: 796916 TAKE ONE TABLET BY MOUTH EVERY DAY 10/30/2014 02/26/2015 Inactive alprazolam 0.25 mg tablet RxNorm: 789856 TAKE ONE TABLET BY MOUTH DAILY 10/07/2014 10/29/2014 Inactive (Response to an electronic controlled substance refill request - RxReferenceNumber: [id number]) alprazolam 0.25 mg tablet RxNorm: 156895 TAKE ONE TABLET BY MOUTH DAILY 10/06/2014 10/07/2014 Inactive (Response to an electronic controlled substance refill request - RxReferenceNumber: [id number]) alprazolam 0.25 mg tablet RxNorm: 134905 Tablet(s) TAKE ONE TABLET BY MOUTH EVERY DAY NEEDED 09/30/2014 10/06/2014 Inactive (Response to an electronic controlled substance refill request - RxReferenceNumber: [id number]) Fioricet 50 mg-325 mg-40 mg tablet RxNorm: 495720 Tablet(s) TAKE ONE TABLET BY MOUTH EVERY 4 HOURS NEEDED FOR headache 09/29/2014 10/12/2014 Inactive (Response to an electronic controlled substance refill request - RxReferenceNumber: [id number]) Bystolic 10 mg tablet RxNorm: 980878 1 Tablet(s) PO daily TAKE ONE TABLET BY MOUTH EVERY DAY 09/29/2014 04/26/2015 Inactive Bystolic 5 mg tablet RxNorm: 637811 TAKE 1 AND 1/2 TABLETS ONCE DAILY 09/24/2014 09/23/2014 Inactive Bystolic 5 mg tablet RxNorm: 349188 Tablet(s) TAKE 1 AND 1/2 TABLETS ONCE DAILY 09/24/2014 09/18/2015 Inactive gentamicin 0.3 % eye drops RxNorm: 194928 3 Drop(s) OPH QID 09/23/2014 09/29/2014 Inactive trazodone 50 mg tablet RxNorm: 750787 TAKE 1 AND 1/2 TABLET AT BEDTIME FOR 2 WEEKS, MAY INCREASE TO 2 TABLETS IF NECESSARY AFTER THAT 09/22/2014 01/26/2015 Inactive Fioricet 50 mg-325 mg-40 mg tablet RxNorm: 124118 TAKE ONE TABLET BY MOUTH EVERY 4 HOURS NEEDED FOR PAIN 09/17/2014 09/28/2014 Inactive (Response to an electronic controlled substance refill request - RxReferenceNumber: [id number]) Duragesic 50 mcg/hr transdermal patch RxNorm: 290465 1 TD q72 hours 08/07/2014 01/06/2015 Inactive [SAVINGS FOR UNINSURED PATIENTS -- BIN:[id number], PCN: ASPROD1, Group: [id number], ID# [id number], Process claim through [employer], for questions: . THIS IS NOT INSURANCE.] alprazolam 0.25 mg tablet RxNorm: 767591 TAKE ONE TABLET BY MOUTH EVERY DAY NEEDED 07/31/2014 08/29/2014 Inactive (Response to an electronic controlled substance refill request - RxReferenceNumber: [id number]) alprazolam 0.25 mg tablet RxNorm: 058157 1 Tablet(s) PO daily as needed TAKE ONE TABLET BY MOUTH EVERY DAY NEEDED 07/30/2014 08/01/2014 Inactive (Response to an electronic controlled substance refill request - RxReferenceNumber: [id number]) Diflucan 150 mg tablet RxNorm: 522212 1 Tablet(s) PO daily 06/25/2014 07/01/2014 Inactive [SAVINGS FOR UNINSURED PATIENTS -- BIN:[id number], PCN: ASPROD1, Group: [id number], ID# [id number], Process claim through [employer], for questions: . THIS IS NOT INSURANCE.] Kenalog 40 mg/mL suspension for injection RxNorm: 1234175 Milliliter(s) Inj 06/23/2014 06/23/2014 Inactive [SAVINGS FOR UNINSURED PATIENTS -- BIN:525257, PCN: ASPROD1, Group: [id number], ID# [id number], Process claim through [employer], for questions: . THIS IS NOT INSURANCE.] ceftriaxone 500 mg solution for injection RxNorm: 788535 Inj 06/23/2014 06/23/2014 Inactive [SAVINGS FOR UNINSURED PATIENTS -- BIN:292412, PCN: ASPROD1, Group: [id number], ID# [id number], Process claim through [employer], for questions: . THIS IS NOT INSURANCE.] Levaquin 500 mg tablet RxNorm: 697273 1 Tablet(s) PO daily 06/23/2014 07/13/2014 Inactive [SAVINGS FOR UNINSURED PATIENTS -- BIN:252280, PCN: ASPROD1, Group: [id number], ID# [id number], Process claim through [employer], for questions: . THIS IS NOT INSURANCE.] Duragesic 50 mcg/hr transdermal patch RxNorm: 371431 1 TD q72 hours 06/05/2014 08/06/2014 Inactive [SAVINGS FOR UNINSURED PATIENTS -- BIN:[id number], PCN: ASPROD1, Group: [id number], ID# [id number], Process claim through [employer], for questions: . THIS IS NOT INSURANCE.] alprazolam 0.25 mg tablet RxNorm: 537978 1 Tablet(s) PO daily as needed TAKE ONE TABLET BY MOUTH EVERY DAY NEEDED 06/02/2014 07/29/2014 Inactive (Response to an electronic controlled substance refill request - RxReferenceNumber: [id number]) nystatin 100,000 unit/gram topical powder RxNorm: 300291 APPLY TO AFFECTED AREA(S) TWO TIMES A DAY 05/01/2014 06/14/2014 Inactive hydrochlorothiazide 25 mg tablet RxNorm: 395252 TAKE ONE TABLET BY MOUTH EVERY DAY MUST CALL MD FOR APPOINTMENT 04/24/2014 10/20/2014 Inactive alprazolam 0.25 mg tablet RxNorm: 972397 Tablet(s) TAKE ONE TABLET BY MOUTH EVERY DAY NEEDED 04/16/2014 06/02/2014 Inactive (Response to an electronic controlled substance refill request - RxReferenceNumber: [id number]) alprazolam 0.25 mg tablet RxNorm: 601961 TAKE ONE TABLET BY MOUTH EVERY DAY NEEDED 04/16/2014 05/15/2014 Inactive (Response to an electronic controlled substance refill request - RxReferenceNumber: [id number]) alprazolam 0.25 mg tablet RxNorm: 700975 TAKE ONE TABLET BY MOUTH EVERY DAY NEEDED 04/16/2014 05/15/2014 Inactive (Response to an electronic controlled substance refill request - RxReferenceNumber: [id number]) alprazolam 0.25 mg tablet RxNorm: 878193 TAKE ONE TABLET BY MOUTH EVERY DAY NEEDED 04/14/2014 04/16/2014 Inactive (Response to an electronic controlled substance refill request - RxReferenceNumber: [id number]) Lipitor 10 mg tablet RxNorm: 259492 TAKE ONE TABLET BY MOUTH EVERY DAY 04/14/2014 09/10/2014 Inactive alprazolam 0.25 mg tablet RxNorm: 219811 TAKE ONE TABLET BY MOUTH EVERY DAY NEEDED 04/14/2014 04/14/2014 Inactive (Response to an electronic controlled substance refill request - RxReferenceNumber: [id number]) alprazolam 0.25 mg tablet RxNorm: 711054 TAKE ONE TABLET BY MOUTH EVERY DAY NEEDED 04/14/2014 04/15/2014 Inactive (Response to an electronic controlled substance refill request - RxReferenceNumber: [id number]) alprazolam 0.25 mg tablet RxNorm: 456544 TAKE ONE TABLET BY MOUTH EVERY DAY NEEDED 04/14/2014 04/14/2014 Inactive (Response to an electronic controlled substance refill request - RxReferenceNumber: [id number]) nystatin 100,000 unit/gram topical powder RxNorm: 165420 1 Application TOP BID 04/03/2014 07/01/2014 Inactive [SAVINGS FOR UNINSURED PATIENTS -- BIN:122478, PCN: ASPROD1, Group: [id number], ID# [id number], Process claim through [employer], for questions: . THIS IS NOT INSURANCE.] Keflex 500 mg capsule RxNorm: 502911 1 Capsule(s) PO QID 04/03/2014 04/09/2014 Inactive [SAVINGS FOR UNINSURED PATIENTS -- BIN:143316, PCN: ASPROD1, Group: [id number], ID# [id number], Process claim through [employer], for questions: . THIS IS NOT INSURANCE.] Synthroid 100 mcg tablet RxNorm: 433054 1 Tablet(s) PO daily TAKE ONE TABLET BY MOUTH EVERY DAY 04/01/2014 01/05/2015 Inactive [SAVINGS FOR UNINSURED PATIENTS -- BIN:090460, PCN: ASPROD1, Group: [id number], ID# [id number], Process claim through [employer], for questions: . THIS IS NOT INSURANCE.] Duragesic 50 mcg/hr transdermal patch RxNorm: 418204 1 TD q72 hours 03/24/2014 06/04/2014 Inactive [SAVINGS FOR UNINSURED PATIENTS -- BIN:651343, PCN: ASPROD1, Group: [id number], ID# [id number], Process claim through [employer], for questions: . THIS IS NOT INSURANCE.] trazodone 50 mg tablet RxNorm: 631203 TAKE 1 AND 1/2 TABLET AT BEDTIME FOR 2 WEEKS, MAY INCREASE TO 2 TABLETS IF NECESSARY AFTER THAT 03/18/2014 09/13/2014 Inactive nystatin 100,000 unit/gram topical powder RxNorm: 354636 1 Application TOP BID 03/07/2014 03/16/2014 Inactive [SAVINGS FOR UNINSURED PATIENTS -- BIN:530760, PCN: ASPROD1, Group: [id number], ID# [id number], Process claim through [employer], for questions: . THIS IS NOT INSURANCE.] permethrin 5 % topical cream RxNorm: 763359 1 Application TOP daily 03/07/2014 11/23/2015 Inactive apply head to toe-leave on overnight and wash off in the a.m. May repeat x 1 if needed Diflucan 150 mg tablet RxNorm: 430008 1 Tablet(s) PO daily 03/07/2014 03/09/2014 Inactive [SAVINGS FOR UNINSURED PATIENTS -- BIN:314223, PCN: ASPROD1, Group: [id number], ID# [id number], Process claim through [employer], for questions: . THIS IS NOT INSURANCE.] hydrochlorothiazide 25 mg tablet RxNorm: 912187 TAKE ONE TABLET BY MOUTH EVERY DAY MUST CALL MD FOR APPOINTMENT 03/06/2014 04/23/2014 Inactive Zithromax Z-Sergio 250 mg tablet RxNorm: 435662 Tablet(s) PO as directed 03/04/2014 11/23/2015 Inactive [SAVINGS FOR UNINSURED PATIENTS -- BIN:044227, PCN: ASPROD1, Group: [id number], ID# [id number], Process claim through [employer], for questions: . THIS IS NOT INSURANCE.] Flonase 50 mcg/actuation nasal spray,suspension RxNorm: 990406 1 [place] NASAL daily 03/04/2014 07/01/2014 Inactive [SAVINGS FOR UNINSURED PATIENTS -- BIN:336547, PCN: ASPROD1, Group: [id number], ID# [id number], Process claim through [employer], for questions: . THIS IS NOT INSURANCE.] alprazolam 0.25 mg tablet RxNorm: 254584 1 Tablet(s) PO PRN TAKE ONE TABLET BY MOUTH EVERY DAY NEEDED 02/25/2014 04/14/2014 Inactive (Appended: Controlled substance eRx refill - RxReferenceNumber: [id number]) alprazolam 0.25 mg tablet RxNorm: 473967 TAKE ONE TABLET BY MOUTH EVERY DAY NEEDED 02/21/2014 03/22/2014 Inactive (Response to an electronic controlled substance refill request - RxReferenceNumber: [id number]) alprazolam 0.25 mg tablet RxNorm: 710240 TAKE ONE TABLET BY MOUTH EVERY DAY NEEDED 02/21/2014 03/22/2014 Inactive (Response to an electronic controlled substance refill request - RxReferenceNumber: [id number]) alprazolam 0.25 mg tablet RxNorm: 289022 TAKE ONE TABLET BY MOUTH EVERY DAY NEEDED 02/18/2014 03/19/2014 Inactive (Response to an electronic controlled substance refill request - RxReferenceNumber: [id number]) Cymbalta 60 mg capsule,delayed release RxNorm: 340518 TAKE ONE CAPSULE BY MOUTH TWICE A DAY 02/18/2014 01/13/2015 Inactive Nexium 40 mg capsule,delayed release RxNorm: 123471 TAKE ONE CAPSULE BY MOUTH EVERY DAY 02/18/2014 01/13/2015 Inactive Bactrim DS 800 mg-160 mg tablet RxNorm: 498245 1 Tablet(s) PO BID 02/13/2014 02/19/2014 Inactive probiotic while one antibiotic Bactrim DS 800 mg-160 mg tablet RxNorm: 791985 1 Tablet(s) PO BID 02/13/2014 02/12/2014 Inactive hydrocodone 10 mg-acetaminophen 325 mg tablet RxNorm: 118875 Tablet(s) PO TAKE ONE TO TWO TABLETS BY MOUTH EVERY 6 HOURS NEEDED FOR PAIN 02/06/2014 03/18/2015 Inactive (Appended: Controlled substance eRx refill - RxReferenceNumber: [id number]) Abilify 2 mg tablet RxNorm: 284398 Tablet(s) PO TAKE ONE TABLET BY MOUTH EVERY NIGHT AT BEDTIME 02/03/2014 03/19/2015 Inactive Duragesic 50 mcg/hr transdermal patch RxNorm: 454770 1 TD q72 hours 01/14/2014 03/23/2014 Inactive alprazolam 0.25 mg tablet RxNorm: 394186 1 Tablet(s) PO QDAY PRN 01/14/2014 02/12/2014 Inactive alprazolam 0.25 mg tablet RxNorm: 038523 Tablet(s) PO TAKE ONE TABLET BY MOUTH EVERY DAY NEEDED 01/14/2014 02/24/2014 Inactive (Appended: Controlled substance eRx refill - RxReferenceNumber: [id number]) Lipitor 10 mg tablet RxNorm: 874728 Tablet(s) PO TAKE ONE TABLET BY MOUTH EVERY DAY 01/14/2014 04/13/2014 Inactive Synthroid 100 mcg tablet RxNorm: 569691 Tablet(s) PO TAKE ONE TABLET BY MOUTH EVERY DAY 2013 03/31/2014 Inactive Fioricet 50 mg-325 mg-40 mg tablet RxNorm: 145167 Tablet(s) PO TAKE ONE TABLET BY MOUTH EVERY 4 HOURS NEEDED FOR PAIN 11/27/2013 09/17/2014 Inactive Fioricet 50 mg-325 mg-40 mg tablet RxNorm: 710354 Tablet(s) PO TAKE ONE TABLET BY MOUTH EVERY 4 HOURS NEEDED FOR PAIN 11/25/2013 11/26/2013 Inactive Zithromax Z-Sergio 250 mg tablet RxNorm: 661464 Tablet(s) PO as directed 11/11/2013 01/13/2014 Inactive Bystolic 10 mg tablet RxNorm: 033806 Tablet(s) PO TAKE ONE TABLET BY MOUTH EVERY DAY 10/21/2013 09/28/2014 Inactive Abilify 2 mg tablet RxNorm: 567953 1 Tablet(s) PO QHS 09/25/2013 01/22/2014 Inactive Synthroid 100 mcg tablet RxNorm: 817117 Tablet(s) PO TAKE ONE TABLET BY MOUTH EVERY DAY 09/24/2013 12/25/2013 Inactive Abilify 2 mg tablet RxNorm: 505871 1 Tablet(s) PO QHS 09/24/2013 09/24/2013 Inactive Rocephin 500 mg solution for injection RxNorm: 168206 1ml Milliliter(s) Inj 09/24/2013 09/24/2013 Inactive Rocephin 500 mg solution for injection RxNorm: 197155 1 Milliliter(s) Inj 09/19/2013 09/19/2013 Inactive Bystolic 5 mg tablet RxNorm: 203233 1 1/2 Tablet(s) PO daily 09/17/2013 03/15/2014 Inactive 1 1/2 daily may have 90 day if cheaper Bystolic 5 mg tablet RxNorm: 494026 1 1/2 Tablet(s) PO daily 09/17/2013 09/16/2013 Inactive 1 1/2 daily Lipitor 10 mg tablet RxNorm: 503554 Tablet(s) PO TAKE ONE TABLET BY MOUTH EVERY DAY 09/12/2013 01/13/2014 Inactive hydrocodone 10 mg-acetaminophen 325 mg tablet RxNorm: 860702 Tablet(s) PO TAKE ONE TO TWO TABLETS BY MOUTH EVERY 6 HOURS NEEDED FOR PAIN 09/09/2013 No Stop Date Active (Appended: Controlled substance eRx refill - RxReferenceNumber: [id number]) hydrocodone 10 mg-acetaminophen 325 mg tablet RxNorm: 340842 1 Tablet(s) PO Q6 PRN 09/09/2013 02/06/2014 Inactive hydrocodone 10 mg-acetaminophen 325 mg tablet RxNorm: 255907 Tablet(s) PO TAKE ONE TO TWO TABLETS BY MOUTH EVERY 6 HOURS NEEDED FOR PAIN 09/06/2013 No Stop Date Active (Appended: Controlled substance eRx refill - RxReferenceNumber: [id number]) Norvasc 10 mg tablet RxNorm: 276970 Tablet(s) PO TAKE ONE TABLET BY MOUTH EVERY DAY 09/05/2013 10/25/2015 Inactive trazodone 50 mg tablet RxNorm: 810920 1 1/2 Tablet(s) PO QHS 09/03/2013 03/17/2014 Inactive 75q hs x 2 week may increase to 100mg if nec after that nystatin 100,000 unit/mL oral suspension RxNorm: 582605 6 Milliliter(s) PO QID 08/06/2013 08/15/2013 Inactive Flonase 50 mcg/actuation nasal spray,suspension RxNorm: 046101 2 [place] NASAL daily 08/06/2013 03/03/2014 Inactive nystatin 100,000 unit/mL oral suspension RxNorm: 079054 6 Unit(s) PO QID 08/05/2013 08/05/2013 Inactive Phenergan with Codeine Syrup RxNorm: 5 Milliliter(s) PO Q4 PRN 08/05/2013 12/02/2013 Inactive 8 ounces alprazolam 0.25 mg tablet RxNorm: 780314 1 Tablet(s) PO QDAY PRN 07/29/2013 01/14/2014 Inactive Diflucan 150 mg tablet RxNorm: 271567 1 Tablet(s) PO daily 07/24/2013 07/26/2013 Inactive hydrochlorothiazide 25 mg tablet RxNorm: 877989 Tablet(s) PO TAKE ONE TABLET BY MOUTH EVERY DAY MUST CALL MD FOR APPOINTMENT 07/19/2013 03/05/2014 Inactive Phenergan with Codeine Syrup RxNorm: 10 Milliliter(s) PO Q4 PRN 07/10/2013 08/04/2013 Inactive 8 ounces Rocephin 500 mg solution for injection RxNorm: 154232 1 Inj 07/10/2013 07/10/2013 Inactive cefdinir 300 mg capsule RxNorm: 517114 1 Capsule(s) PO BID 07/10/2013 07/16/2013 Inactive prednisone 10 mg tablet RxNorm: 067015 3 Tablet(s) PO daily 07/10/2013 07/14/2013 Inactive Carafate 100 mg/mL oral suspension RxNorm: 539633 10 Milliliter(s) PO Q6 PRN pt to take carafate 10mL every 6 hours as needed. 07/10/2013 08/05/2014 Inactive Kenalog 40 mg/mL suspension for injection RxNorm: 1151758 1 Milliliter(s) Inj 07/10/2013 07/10/2013 Inactive trazodone 50 mg tablet RxNorm: 983401 1 Tablet(s) PO QHS 07/10/2013 09/02/2013 Inactive sulfamethoxazole 800 mg-trimethoprim 160 mg tablet RxNorm: 653142 1 Tablet(s) PO BID 06/03/2013 06/12/2013 Inactive Synthroid 125 mcg tablet RxNorm: 581861 1 Tablet(s) PO daily 05/07/2013 09/23/2013 Inactive Bystolic 10 mg tablet RxNorm: 017329 1.5 Tablet(s) PO daily 05/07/2013 09/03/2013 Inactive Voltaren 1 % Topical Gel RxNorm: 878603 4 Gram(s) TOP QID apply 4 grams to knees, 2 grams to hands and ankles four times daily. 05/07/2013 09/03/2013 Inactive hydrocodone 10 mg-acetaminophen 325 mg tablet RxNorm: 970771 1 Tablet(s) PO Q6 PRN 04/23/2013 09/09/2013 Inactive Norvasc 10 mg tablet RxNorm: 795582 Tablet(s) PO TAKE ONE TABLET BY MOUTH EVERY DAY 04/23/2013 09/04/2013 Inactive alprazolam 0.25 mg tablet RxNorm: 853938 1 Tablet(s) PO QDAY PRN 03/25/2013 07/22/2013 Inactive Bystolic 10 mg tablet RxNorm: 965335 1 Tablet(s) PO daily TAKE ONE TABLET BY MOUTH EVERY DAY 03/25/2013 05/06/2013 Inactive zolpidem 10 mg tablet RxNorm: 469117 1 Tablet(s) PO HS PRN 03/25/2013 07/09/2013 Inactive gentamicin 0.3 % Eye Drops RxNorm: 3560894 3 Drop(s) OPH QID three gtts to each eye QID x 7 days 03/11/2013 03/10/2013 Inactive gentamicin 0.3 % eye drops RxNorm: 836869 3 Drop(s) OPH QID three gtts to each eye QID x 7 days 03/11/2013 03/17/2013 Inactive Nexium 40 mg capsule,delayed release RxNorm: 100266 Capsule(s) PO TAKE ONE CAPSULE BY MOUTH EVERY DAY 02/15/2013 02/17/2014 Inactive Cymbalta 60 mg capsule,delayed release RxNorm: 487943 Capsule(s) PO TAKE ONE CAPSULE BY MOUTH TWICE A DAY 02/15/2013 02/17/2014 Inactive hydrocodone 10 mg-acetaminophen 325 mg tablet RxNorm: 3225497 1 Tablet(s) PO Q6 PRN 01/22/2013 04/22/2013 Inactive Lipitor 10 mg tablet RxNorm: 147519 Tablet(s) PO TAKE ONE TABLET BY MOUTH EVERY DAY 01/07/2013 09/11/2013 Inactive Cymbalta 60 mg capsule,delayed release RxNorm: 746980 Capsule(s) PO TAKE ONE CAPSULE BY MOUTH TWICE A DAY 01/02/2013 02/14/2013 Inactive Synthroid 100 mcg tablet RxNorm: 486390 1 Tablet(s) PO 12/03/2012 05/06/2013 Inactive Enablex 7.5 mg tablet,extended release RxNorm: 833418 1 Tablet(s) PO daily 11/28/2012 11/27/2012 Inactive Enablex 7.5 mg tablet,extended release RxNorm: 040427 1 Tablet(s) PO daily 11/28/2012 11/28/2012 Inactive scopolamine 1.5 mg 72 hr Transderm Patch RxNorm: 633301 1 Milligram(s) TD q72 hours 11/26/2012 05/06/2013 Inactive hydrochlorothiazide 25 mg tablet RxNorm: 499128 Tablet(s) PO TAKE ONE TABLET BY MOUTH EVERY DAY MUST CALL FOR APPOINTMENT 11/24/2012 07/18/2013 Inactive Cymbalta 60 mg capsule,delayed release RxNorm: 004280 Capsule(s) PO TAKE ONE CAPSULE BY MOUTH TWICE A DAY 10/26/2012 01/01/2013 Inactive Bystolic 10 mg tablet RxNorm: 661742 Tablet(s) PO TAKE ONE TABLET BY MOUTH EVERY DAY 10/12/2012 03/25/2013 Inactive zolpidem 10 mg tablet RxNorm: 188572 1 Tablet(s) PO HS PRN 10/02/2012 01/29/2013 Inactive alprazolam 0.25 mg tablet RxNorm: 426351 1 Tablet(s) PO QDAY PRN 10/02/2012 01/29/2013 Inactive Kenalog 40 mg/mL Susp for Injection RxNorm: 2517495 1 Milliliter(s) Inj 09/24/2012 09/24/2012 Inactive Diflucan 150 mg tablet RxNorm: 232441 1 Tablet(s) PO daily 09/24/2012 09/30/2012 Inactive acyclovir 400 mg tablet RxNorm: 838400 1 Tablet(s) PO QID 09/24/2012 10/08/2012 Inactive Cipro 500 mg tablet RxNorm: 423325 1 Tablet(s) PO BID 09/24/2012 09/30/2012 Inactive Tamiflu 75 mg capsule RxNorm: 004539 1 Capsule(s) PO BID 09/17/2012 09/16/2012 Inactive Tamiflu 75 mg capsule RxNorm: 248793 1 Capsule(s) PO BID 09/17/2012 09/16/2012 Inactive Tamiflu 75 mg capsule RxNorm: 538349 1 Capsule(s) PO BID please disregard order for #14 09/17/2012 09/21/2012 Inactive fluconazole 150 mg tablet RxNorm: 180295 1 Tablet(s) PO daily 09/10/2012 09/13/2012 Inactive ketoconazole 2 % Topical Cream RxNorm: 237312 Application TOP BID apply to affected area BID until gone 08/31/2012 No Stop Date Active Norvasc 10 mg tablet RxNorm: 661399 Tablet(s) PO TAKE ONE TABLET BY MOUTH EVERY DAY 08/29/2012 04/22/2013 Inactive Cipro 500 mg tablet RxNorm: 575598 1 Tablet(s) PO BID 08/17/2012 08/26/2012 Inactive Flagyl 500 mg tablet RxNorm: 143256 1 Tablet(s) PO TID 08/17/2012 08/23/2012 Inactive Cipro 500 mg tablet RxNorm: 515725 1 Tablet(s) PO BID 08/17/2012 08/16/2012 Inactive zolpidem 10 mg tablet RxNorm: 851219 1 Tablet(s) PO HS PRN 08/17/2012 09/15/2012 Inactive Flagyl 500 mg tablet RxNorm: 348602 1 Tablet(s) PO TID 08/17/2012 08/16/2012 Inactive alprazolam 0.25 mg tablet RxNorm: 868702 1 Tablet(s) PO QDAY PRN 08/17/2012 09/15/2012 Inactive [place] Allergy 180 mg tablet RxNorm: 781152 1 Tablet(s) PO daily 08/08/2012 02/03/2013 Inactive hydrochlorothiazide 25 mg tablet RxNorm: 617714 1/2 Tablet(s) PO daily 08/08/2012 11/05/2012 Inactive needs appt Carafate 1 gram tablet RxNorm: 638942 1 Tablet(s) PO QID mix with 10 cc water and dissolve into slurry 08/08/2012 08/21/2012 Inactive hydrocodone 10 mg-acetaminophen 325 mg tablet RxNorm: 8721236 1 Tablet(s) PO Q6 PRN 08/08/2012 01/21/2013 Inactive Synthroid 100 mcg tablet RxNorm: 522262 1 Tablet(s) PO 08/08/2012 12/02/2012 Inactive Cymbalta 60 mg capsule,delayed release RxNorm: 873644 Capsule(s) PO 07/23/2012 10/25/2012 Inactive TAKE ONE CAPSULE BY MOUTH TWICE A DAY Nexium 40 mg capsule,delayed release RxNorm: 872993 Capsule(s) PO 06/20/2012 02/14/2013 Inactive TAKE ONE CAPSULE BY MOUTH EVERY DAY Lipitor 10 mg tablet RxNorm: 373603 Tablet(s) PO 06/20/2012 01/06/2013 Inactive TAKE ONE TABLET BY MOUTH EVERY DAY hydrochlorothiazide 25 mg tablet RxNorm: 762582 1 Tablet(s) PO daily 06/19/2012 08/07/2012 Inactive needs appt alprazolam 0.25 mg tablet RxNorm: 838470 1 Tablet(s) PO QDAY PRN 06/05/2012 07/04/2012 Inactive zolpidem 10 mg tablet RxNorm: 411406 1 Tablet(s) PO HS PRN 06/05/2012 07/04/2012 Inactive zolpidem 10 mg tablet RxNorm: 040791 1 Tablet(s) PO HS PRN 04/16/2012 05/15/2012 Inactive alprazolam 0.25 mg tablet RxNorm: 156345 1 Tablet(s) PO QDAY PRN 04/16/2012 05/15/2012 Inactive Cymbalta 60 mg capsule,delayed release RxNorm: 829710 1 Capsule(s) PO BID 03/22/2012 07/19/2012 Inactive Fioricet 50 mg-325 mg-40 mg tablet RxNorm: 008966 1 Tablet(s) PO Q4 PRN 03/22/2012 11/24/2013 Inactive Bystolic 10 mg tablet RxNorm: 210483 Tablet(s) PO 03/22/2012 10/11/2012 Inactive TAKE ONE TABLET BY MOUTH EVERY DAY potassium chloride ER 10 mEq Tab RxNorm: 592685 1 Tablet(s) PO daily 02/24/2012 03/01/2012 Inactive Lasix 20 mg Tab RxNorm: 751918 1 Tablet(s) PO daily 02/22/2012 02/21/2012 Inactive KCL 10 meq RxNorm: 1 PO daily 02/22/2012 02/21/2012 Inactive potassium chloride ER 10 mEq Tab RxNorm: 890064 1 Tablet(s) PO daily 02/22/2012 02/21/2012 Inactive Lasix 20 mg Tab RxNorm: 407922 1 Tablet(s) PO daily 02/22/2012 02/28/2012 Inactive KCL 10 meq RxNorm: 1 PO daily 02/22/2012 02/22/2012 Inactive potassium chloride ER 10 mEq Tab RxNorm: 626938 1 Tablet(s) PO daily 02/22/2012 02/23/2012 Inactive Rocephin 500 mg Solution for Injection RxNorm: 847599 Inj 02/15/2012 02/15/2012 Inactive Nexium 40 mg capsule,delayed release RxNorm: 364677 1 Capsule(s) PO daily 02/15/2012 No Stop Date Active Bystolic 10 mg Tab RxNorm: 873558 1 Tablet(s) PO daily 02/15/2012 08/12/2012 Inactive alprazolam 0.25 mg tablet RxNorm: 837555 1 Tablet(s) PO QDAY PRN 01/31/2012 02/29/2012 Inactive zolpidem 10 mg tablet RxNorm: 309545 1 Tablet(s) PO HS PRN 01/31/2012 02/29/2012 Inactive alprazolam 0.25 mg Tab RxNorm: 802801 1 Tablet(s) PO QDAY PRN 12/16/2011 01/14/2012 Inactive zolpidem 10 mg Tab RxNorm: 787100 1 Tablet(s) PO HS PRN 12/16/2011 01/14/2012 Inactive Norvasc 10 mg tablet RxNorm: 656086 1 Tablet(s) PO daily 12/02/2011 02/21/2012 Inactive Lipitor 10 mg tablet RxNorm: 488580 1 Tablet(s) PO daily 11/16/2011 05/13/2012 Inactive zolpidem 10 mg Tab RxNorm: 998756 1 Tablet(s) PO HS PRN 10/26/2011 12/15/2011 Inactive alprazolam 0.25 mg Tab RxNorm: 587709 1 Tablet(s) PO QDAY PRN 10/26/2011 12/15/2011 Inactive hydrochlorothiazide 25 mg tablet RxNorm: 184405 1 Tablet(s) PO daily 09/05/2011 03/02/2012 Inactive Synthroid 75 mcg tablet RxNorm: 208039 1 Tablet(s) PO daily 08/01/2011 02/26/2012 Inactive Abilify 2 mg Tab RxNorm: 550594 1 Tablet(s) PO QHS 08/01/2011 09/10/2012 Inactive dicyclomine 10 mg Cap RxNorm: 516658 1 Capsule(s) PO TID 08/01/2011 10/29/2011 Inactive alprazolam 0.25 mg Tab RxNorm: 911096 1 Tablet(s) PO QDAY PRN 07/26/2011 10/25/2011 Inactive Fioricet 50 mg-325 mg-40 mg tablet RxNorm: 742889 1 Tablet(s) PO Q4 PRN 07/14/2011 03/21/2012 Inactive Rocephin 500 mg Solution for Injection RxNorm: 738947 1 Milliliter(s) Inj 07/14/2011 08/01/2011 Inactive Nexium 40 mg Capsule, delayed release RxNorm: 213340 1 Capsule(s) PO daily 05/23/2011 10/06/2011 Inactive Bystolic 10 mg tablet RxNorm: 494339 1 Tablet(s) PO daily 05/23/2011 11/18/2011 Inactive Bystolic 10 mg Tab RxNorm: 250509 1 Tablet(s) PO daily 05/23/2011 05/22/2011 Inactive alprazolam 0.25 mg Tab RxNorm: 997678 1 Tablet(s) PO QDAY PRN 05/23/2011 07/25/2011 Inactive Influenza Virus Vaccine 0.5 mL RxNorm: IM 05/23/2011 05/23/2011 Inactive zolpidem 10 mg Tab RxNorm: 759031 1 Tablet(s) PO HS PRN 05/23/2011 10/25/2011 Inactive Rocephin 500 mg Solution for Injection RxNorm: 342751 1 Milliliter(s) Inj 05/03/2011 07/14/2011 Inactive Kenalog 40 mg/mL Susp for Injection RxNorm: 6437735 1 Milliliter(s) Inj 05/03/2011 07/14/2011 Inactive Bactrim DS 800 mg-160 mg Tab RxNorm: 529225 1 Tablet(s) PO BID 05/03/2011 08/01/2011 Inactive Flonase 50 mcg/actuation nasal spray,suspension RxNorm: 9359830 1 [place] NASAL daily No Start Date Active 1 spray to each nostril daily aspirin 81 mg tablet RxNorm: 019562 1 Tablet(s) PO daily No Start Date Active baclofen 10 mg tablet RxNorm: 887239 1 Tablet(s) PO TID as needed muscle spasms No Start Date Active Fish Oil 1,000 mg Cap RxNorm: 1 Capsule(s) PO TID No Start Date Active Flonase 50 mcg/actuation nasal spray,suspension RxNorm: 7465415 2 [place] NASAL daily No Start Date 08/05/2013 Inactive Levaquin 500 mg tablet RxNorm: 601998 Tablet(s) PO No Start Date 04/19/2017 Inactive Duragesic 50 mcg/hr transdermal patch RxNorm: 566297 1 TD q72 hours No Start Date 01/13/2014 Inactive Vesicare 5 mg tablet RxNorm: 599263 1 Tablet(s) PO daily No Start Date 01/06/2015 Inactive Celebrex 200 mg capsule RxNorm: 207123 1 Capsule(s) PO daily No Start Date 04/02/2014 Inactive zolpidem 10 mg Tab RxNorm: 313206 1 Tablet(s) PO HS PRN No Start Date 05/22/2011 Inactive Zyrtec 10 mg Tab RxNorm: 9971554 1 Tablet(s) PO daily No Start Date 08/08/2012 Inactive Nexium 40 mg Cap RxNorm: 862265 1 Capsule(s) PO daily No Start Date 05/22/2011 Inactive ketoconazole 2 % Topical Cream RxNorm: 065980 Application TOP BID apply to affected area BID until gone No Start Date 08/30/2012 Inactive Cymbalta 60 mg capsule,delayed release RxNorm: 847619 1 Capsule(s) PO BID No Start Date 03/21/2012 Inactive alprazolam 0.25 mg Tab RxNorm: 253743 1 Tablet(s) PO QDAY PRN No Start Date 05/22/2011 Inactive Toprol XL 100 mg 24 hr Tab RxNorm: 990675 1 Tablet(s) PO BID No Start Date 04/25/2011 Inactive Xanax 0.25 mg tablet RxNorm: 294112 1 Tablet(s) PO daily as needed No Start Date 12/27/2015 Inactive Bystolic 10 mg Tab RxNorm: 603373 1 Tablet(s) PO daily No Start Date 05/22/2011 Inactive Fioricet 50 mg-325 mg-40 mg Tab RxNorm: 745360 1 Tablet(s) PO Q4 PRN No Start Date 07/13/2011 Inactive albuterol sulfate HFA 90 mcg/Actuation Aerosol Inhaler RxNorm: 5565468 1 INH Q4 PRN No Start Date 01/06/2015 Inactive Imitrex 50 mg tablet RxNorm: 344439 1 Tablet(s) PO Q8 as needed may repeat x1 dose in 1 hour of inital dose. No Start Date 02/24/2016 Inactive dc fioricet Tessalon 200 mg Cap RxNorm: 017378 1 Capsule(s) PO Q4 PRN No Start Date 02/14/2012 Inactive Zithromax Z-Sergio 250 mg tablet RxNorm: 926950 Tablet(s) PO No Start Date 11/10/2013 Inactive hydrochlorothiazide 25 mg Tab RxNorm: 062383 1 Tablet(s) PO daily No Start Date 09/04/2011 Inactive Deplin 15 mg Tab RxNorm: 1 Tablet(s) PO daily No Start Date 08/01/2011 Inactive Brilinta 90 mg tablet RxNorm: 3846585 1 Tablet(s) PO BID No Start Date 11/23/2015 Inactive Synthroid 75 mcg Tab RxNorm: 251447 1 Tablet(s) PO daily No Start Date 07/31/2011 Inactive scopolamine 1.5 mg 72 hr Transderm Patch RxNorm: 956134 1 Milligram(s) TD q72 hours No Start Date 11/25/2012 Inactive hydrocodone-acetaminophen 10 mg-325 mg tablet RxNorm: 1046175 1 Tablet(s) PO Q6 PRN No Start Date 08/07/2012 Inactive Phenergan with Codeine Syrup RxNorm: 5-10 Milliliter(s) PO Q6 PRN No Start Date 02/14/2012 Inactive Norvasc 10 mg Tab RxNorm: 185450 1 Tablet(s) PO daily No Start Date 12/01/2011 Inactive Zithromax Z-Sergio 250 mg Tab RxNorm: 061120 Tablet(s) PO No Start Date 08/01/2011 Inactive Medication Administered Medication Codes Instructions Start Date Status Kenalog 40 mg/mL suspension for injection RxNorm: 4251507 1Milliliter 06/27/2017 No longer Active Kenalog 40 mg/mL suspension for injection RxNorm: 9345755 Milliliter 04/20/2017 No longer Active Kenalog 40 mg/mL suspension for injection RxNorm: 0946942 1Milliliter 03/14/2017 No longer Active ceftriaxone 500 mg solution for injection RxNorm: 5679856 1Milliliter 11/28/2016 No longer Active Kenalog 40 mg/mL suspension for injection RxNorm: 9117127 Milliliter 11/07/2016 No longer Active ceftriaxone 500 mg solution for injection RxNorm: 5092967 11/07/2016 No longer Active ceftriaxone 500 mg solution for injection RxNorm: 3442282 12/07/2015 No longer Active Kenalog 40 mg/mL suspension for injection RxNorm: 3797319 1Milliliter 11/24/2015 No longer Active ceftriaxone 500 mg solution for injection RxNorm: 1309164 Milliliter 11/24/2015 No longer Active promethazine 25 mg/mL injection solution RxNorm: 610932 Milliliter 08/27/2015 No longer Active ketorolac 60 mg/2 mL intramuscular solution RxNorm: 034968 Milliliter 08/27/2015 No longer Active Kenalog 40 mg/mL suspension for injection RxNorm: 6561791 Milliliter 08/10/2015 No longer Active ceftriaxone 500 mg solution for injection RxNorm: 6339996 08/10/2015 No longer Active ceftriaxone 500 mg solution for injection RxNorm: 1026597 1Milliliter 07/28/2015 No longer Active Kenalog 40 mg/mL suspension for injection RxNorm: 7022863 Milliliter 03/19/2015 No longer Active Kenalog 40 mg/mL suspension for injection RxNorm: 7460094 Milliliter 06/23/2014 No longer Active ceftriaxone 500 mg solution for injection RxNorm: 655628 06/23/2014 No longer Active Rocephin 500 mg solution for injection RxNorm: 609323 1mlMilliliter 09/24/2013 No longer Active Rocephin 500 mg solution for injection RxNorm: 082596 1Milliliter 09/19/2013 No longer Active Rocephin 500 mg solution for injection RxNorm: 091296 1 07/10/2013 No longer Active Kenalog 40 mg/mL suspension for injection RxNorm: 7975376 1Milliliter 07/10/2013 No longer Active Kenalog 40 mg/mL Susp for Injection RxNorm: 5402884 1Milliliter 09/24/2012 No longer Active Rocephin 500 mg Solution for Injection RxNorm: 919855 02/15/2012 No longer Active Influenza Virus Vaccine 0.5 mL RxNorm: 05/23/2011 No longer Active Immunizations Vaccine Codes Date Status Influenza CVX: 141 06/24/2013 completed Pneumococcal CVX: 33 06/24/2013 completed PPD Unknown 05/13/2013 completed Assessments Condition Codes Effective Dates Other acute sinusitis ICD-10: J01.80 ICD-9: 461.8 09/12/2017 Diarrhea, unspecified ICD-10: R19.7 ICD-9: 787.91 09/12/2017 Generalized abdominal pain ICD-10: R10.84 ICD-9: 789.07 09/12/2017 Other allergic rhinitis ICD-10: J30.89 ICD-9: 477.8 09/12/2017 Acute laryngopharyngitis ICD-10: J06.0 ICD-9: 465.0 07/25/2017 Cough ICD-10: R05 ICD-9: 786.2 07/25/2017 Wheezing ICD-10: R06.2 ICD-9: 786.07 07/25/2017 Cervicalgia ICD-10: M54.2 ICD-9: 723.1 06/27/2017 Acute recurrent maxillary sinusitis ICD-10: J01.01 ICD-9: 461.0 06/27/2017 Chronic maxillary sinusitis ICD-10: J32.0 ICD-9: [...] abnormal findings ICD-10: Z00.01 ICD-9: V70.0 11/07/2016 Low back pain ICD-10: M54.5 ICD-9: 724.2 [...] For Visit Effective Dates Notes abdominal pain 09/12/2017 chest congestion 07/25/2017 cough [...] Item Item Code Result Date Comp Metabolic Qvu207 NA 141 mEq/L 09/12/2017 Comp Metabolic Akb947 K 4.1 mEq/L 09/12/2017 Comp Metabolic Ypg249 CL 105 mEq/L 09/12/2017 Comp Metabolic Guo665 CO2 30.0 mEq/L 09/12/2017 Comp Metabolic Jwj457 ANION GAP 10 09/12/2017 Comp Metabolic Qye519 GLUCOSE 97 mg/dL 09/12/2017 Comp Metabolic Xtv041 Creat 0.7 mg/dL 09/12/2017 Comp Metabolic Azs903 eGFR 91 ml/min/1.73m2 09/12/2017 Comp Metabolic Lnj363 BUN 18 mg/dL 09/12/2017 Comp Metabolic Uzg619 B/C Ratio 26.5 Ratio 09/12/2017 Comp Metabolic Kmq615 CALCIUM 9.7 mg/dL 09/12/2017 Comp Metabolic Far621 ALK PHOS 60 U/L 09/12/2017 Comp Metabolic Ynz491 AST(SGOT) 22 U/L 09/12/2017 Comp Metabolic Nzq791 ALT(SGPT) 23 U/L 09/12/2017 Comp Metabolic Mwi564 BILI T 0.4 mg/dL 09/12/2017 Comp Metabolic Prc894 ALBUMIN 3.8 g/dL 09/12/2017 Comp Metabolic Wcc824 TPRO 6.4 g/dL 09/12/2017 Comp Metabolic Gpb523 GLOB 2.6 g/dL 09/12/2017 Comp Metabolic Gby319 A/G Ratio 1.5 Ratio 09/12/2017 Comp Metabolic Bnv424 Osmo 283 mOsmo 09/12/2017 Cbc With Differential [...] 30.7 pg 09/12/2017 Cbc With Differential Ord2 [place]% 7.2 % 09/12/2017 Cbc With Differential Ord2 [...] 2.46 K/ul 09/12/2017 Cbc With Differential Ord2 [place] ABS# 0.6 K/ul 09/12/2017 Cbc With Differential [...] 26.9 % 11/07/2016 Cbc With Differential Ord2 [place]% 6.1 % 11/07/2016 Cbc With Differential Ord2 [...] 2.48 K/ul 11/07/2016 Cbc With Differential Ord2 [place] ABS# 0.6 K/ul 11/07/2016 Cbc With Differential Ord2 Eos ABS# 0.3 K/ul 11/07/2016 Cbc With Differential Ord2 Baso ABS# 0.1 K/ul 11/07/2016 Comp Metabolic Zap447 NA 139 mEq/L 11/07/2016 Comp Metabolic Pbt824 K 3.8 mEq/L 11/07/2016 Comp Metabolic Tnt973 CL 106 mEq/L 11/07/2016 Comp Metabolic Snr889 CO2 25.0 mEq/L 11/07/2016 Comp Metabolic Edd641 ANION GAP 12 11/07/2016 Comp Metabolic Fgy964 GLUCOSE 98 mg/dL 11/07/2016 Comp Metabolic Afp514 Creat 0.8 mg/dL 11/07/2016 Comp Metabolic Khr949 eGFR 71 ml/min/1.73m2 11/07/2016 Comp Metabolic Nwh592 BUN 36 mg/dL 11/07/2016 Comp Metabolic Fwz416 B/C Ratio 42.9 Ratio 11/07/2016 Comp Metabolic Jbq380 CALCIUM 9.9 mg/dL 11/07/2016 Comp Metabolic Mrr610 ALK PHOS 57 U/L 11/07/2016 Comp Metabolic Bqh763 AST(SGOT) 24 U/L 11/07/2016 Comp Metabolic Rwe199 ALT(SGPT) 28 U/L 11/07/2016 Comp Metabolic Kle594 BILI T 0.4 mg/dL 11/07/2016 Comp Metabolic Cpm218 ALBUMIN 4.2 g/dL 11/07/2016 Comp Metabolic Ili432 TPRO 7.0 g/dL 11/07/2016 Comp Metabolic Dmn954 GLOB 2.8 g/dL 11/07/2016 Comp Metabolic Dcy929 A/G Ratio 1.5 Ratio 11/07/2016 Comp Metabolic Gna727 Osmo 286 mOsmo 11/07/2016 Free T4 Ryu632 FREE T4 0.75 ng/dL 11/07/2016 Tsh Ord6 hTSH II 3.46 uIU/mL 11/07/2016 Comp Metabolic Xwp451 NA 138 mEq/L 05/10/2016 Comp Metabolic Ltd036 K 3.8 mEq/L 05/10/2016 Comp Metabolic Mnl863 CL 102 mEq/L 05/10/2016 Comp Metabolic Xki771 CO2 29.0 mEq/L 05/10/2016 Comp Metabolic Ogm367 ANION GAP 11 05/10/2016 Comp Metabolic Cpr931 GLUCOSE 107 mg/dL 05/10/2016 Comp Metabolic Sml960 Creat 0.7 mg/dL 05/10/2016 Comp Metabolic Jne210 eGFR 93 ml/min/1.73m2 05/10/2016 Comp Metabolic Bxj075 BUN 18 mg/dL 05/10/2016 Comp Metabolic Jpl908 B/C Ratio 26.9 Ratio 05/10/2016 Comp Metabolic Raj291 CALCIUM 9.8 mg/dL 05/10/2016 Comp Metabolic Jos149 ALK PHOS 60 U/L 05/10/2016 Comp Metabolic Qrp724 AST(SGOT) 21 U/L 05/10/2016 Comp Metabolic Zsu320 ALT(SGPT) 23 U/L 05/10/2016 Comp Metabolic Bgi086 BILI T 0.5 mg/dL 05/10/2016 Comp Metabolic Qie165 ALBUMIN 4.1 g/dL 05/10/2016 Comp Metabolic Ssc433 TPRO 6.7 g/dL 05/10/2016 Comp Metabolic Zev421 GLOB 2.7 g/dL 05/10/2016 Comp Metabolic Wzq322 A/G Ratio 1.5 Ratio 05/10/2016 Comp Metabolic Fal071 Osmo 278 mOsmo 05/10/2016 Lipid Ord30 CHOL 169 mg/dL 05/10/2016 Lipid Ord30 HDL 50.0 mg/dl 05/10/2016 Lipid Ord30 TRIG 161 mg/dL 05/10/2016 Lipid Ord30 LDL 87 mg/dL 05/10/2016 Lipid Ord30 C/HDL 3.4 Ratio 05/10/2016 Comp Metabolic Qxl570 NA 137 mEq/L 06/12/2015 Comp Metabolic Zgd328 K 3.8 mEq/L 06/12/2015 Comp Metabolic Nqg776 CL 104 mEq/L 06/12/2015 Comp Metabolic Xui135 CO2 24.0 mEq/L 06/12/2015 Comp Metabolic Yug115 ANION GAP 13 06/12/2015 Comp Metabolic Xdk244 GLUCOSE 92 mg/dL 06/12/2015 Comp Metabolic Fqf673 Creat 0.7 mg/dL 06/12/2015 Comp Metabolic Vky609 eGFR 87 ml/min/1.73m2 06/12/2015 Comp Metabolic Ufd442 BUN 31 mg/dL 06/12/2015 Comp Metabolic Wql630 B/C Ratio 43.7 Ratio 06/12/2015 Comp Metabolic Kaj393 CALCIUM 10.0 mg/dL 06/12/2015 Comp Metabolic Lns056 ALK PHOS 58 U/L 06/12/2015 Comp Metabolic Hgu971 AST(SGOT) 32 U/L 06/12/2015 Comp Metabolic Uzp814 ALT(SGPT) 33 U/L 06/12/2015 Comp Metabolic Bsh906 BILI T 0.5 mg/dL 06/12/2015 Comp Metabolic Flf945 ALBUMIN 4.1 g/dL 06/12/2015 Comp Metabolic Qdv644 TPRO 6.6 g/dL 06/12/2015 Comp Metabolic Gpx810 GLOB 2.5 g/dL 06/12/2015 Comp Metabolic Zev566 A/G Ratio 1.6 Ratio 06/12/2015 Comp Metabolic Ahc687 Osmo 280 mOsmo 06/12/2015 Cbc With Differential [...] Differential Ord2 RDW 14.2 % 06/12/2015 CBC 5544564 WBC 8.7 10e9/L 04/30/2013 CBC 6683338 RBC 4.63 10e12/L 04/30/2013 CBC 2699343 HGB 14.1 g/dL 04/30/2013 CBC 8404260 HCT DET 42.2 % 04/30/2013 CBC 8949594 MCV 91.1 fL 04/30/2013 CBC 0422871 MCH 30.5 pg 04/30/2013 CBC 1378715 MCHC 33.4 g/dL 04/30/2013 CBC 8796920 PLT 248 10e9/L 04/30/2013 CBC 8251603 MPV 12.1 fL 04/30/2013 CBC 6597739 LARA % 59.0 % 04/30/2013 CBC 9925169 LY % 27.6 % 04/30/2013 CBC 3640876 MON % 8.0 % 04/30/2013 CBC 3483316 EOS % 4.8 % 04/30/2013 CBC 7732138 BASO % 0.6 % 04/30/2013 CBC 0978639 RDW 13.3 % 04/30/2013 CBC 4486026 ABS LARA 5.13 10e9/L 04/30/2013 CBC 0982651 ABS LYMPH 2.40 10e9/L 04/30/2013 CBC 8349995 ABS MONO 0.70 10e9/L 04/30/2013 CBC 7464571 ABS EOS 0.42 10e9/L 04/30/2013 CBC 9178859 ABS BASO 0.05 10e9/L 04/30/2013 CBC 0431906 RDW-SD 43.1 fL 04/30/2013 TSH 1249704 TSH 4.339 uIU/ML 04/30/2013 A1C HPLC 6059535 A1C HPLC 55207-6 5.6 % 04/30/2013 FREE T4 8251881 FREE T4 0.84 NG/DL 04/30/2013 GFR CALC 5953311 GFR AA >60 ML/MIN 04/30/2013 GFR CALC 3646313 GFR NON-AA >60 ML/MIN 04/30/2013 CHEM 14 7286333 AST 22 U/L 04/30/2013 CHEM 14 0933730 ALT 22 IU/L 04/30/2013 CHEM 14 9669890 BUN 24 MG/DL 04/30/2013 CHEM 14 0973809 ALBUMIN 4.2 GM/DL 04/30/2013 CHEM 14 4286431 CHLORIDE 107 MMOL/L 04/30/2013 CHEM 14 9199019 BILI TOT 0.3 MG/DL 04/30/2013 CHEM 14 3157788 ALK PHOS 88 U/L 04/30/2013 CHEM 14 4710123 SODIUM 141 MMOL/L 04/30/2013 CHEM 14 6891718 CREATININE 0.60 MG/DL 04/30/2013 CHEM 14 9806343 CALCIUM 9.9 MG/DL 04/30/2013 CHEM 14 7275735 POTASSIUM 3.7 MMOL/L 04/30/2013 CHEM 14 7029503 PROT TOT 6.6 GM/DL 04/30/2013 CHEM 14 1357778 GLUCOSE 123 MG/DL 04/30/2013 CHEM 14 2819695 BICARB 25 MMOL/L 04/30/2013 CHEM 14 0693137 ANION GAP 9 MEQ/L 04/30/2013 LIPID GRP HDL TEST 46 MG/DL 04/30/2013 LIPID GRP TRIG 148 MG/DL 04/30/2013 LIPID GRP TEST LDL 75 MG/DL 04/30/2013 LIPID GRP CHOL 151 MG/DL 04/30/2013 LIPID GRP RCHOL/HDL 3.28 RATIO 04/30/2013 TSH 5978035 TSH 3.341 uIU/ML 11/29/2012 CBC 9753011 WBC 8.4 10e9/L 11/29/2012 CBC 7728693 RBC 4.77 10e12/L 11/29/2012 CBC 5719135 HGB 14.9 g/dL 11/29/2012 CBC 5087140 HCT DET 44.2 % 11/29/2012 CBC 6216007 MCV 92.7 fL 11/29/2012 CBC 5340041 MCH 31.2 pg 11/29/2012 CBC 3182459 MCHC 33.7 g/dL 11/29/2012 CBC 2886723 PLT 253 10e9/L 11/29/2012 CBC 1231182 MPV 11.8 fL 11/29/2012 CBC 8044292 LARA % 54.9 % 11/29/2012 CBC 2028646 LY % 29.0 % 11/29/2012 CBC 0609801 MON % 10.4 % 11/29/2012 CBC 5545281 EOS % 5.1 % 11/29/2012 CBC 2011520 BASO % 0.6 % 11/29/2012 CBC 3244809 RDW 13.8 % 11/29/2012 CBC 3379868 ABS LARA 4.61 10e9/L 11/29/2012 CBC 5252913 ABS LYMPH 2.44 10e9/L 11/29/2012 CBC 1398778 ABS MONO 0.87 10e9/L 11/29/2012 CBC 3672273 ABS EOS 0.43 10e9/L 11/29/2012 CBC 0048994 ABS BASO 0.05 10e9/L 11/29/2012 CBC 9273776 RDW-SD 45.9 fL 11/29/2012 CHEM 14 0561660 AST 25 U/L 11/29/2012 CHEM 14 3512756 ALT 26 IU/L 11/29/2012 CHEM 14 4103385 BUN 25 MG/DL 11/29/2012 CHEM 14 1841036 ALBUMIN 4.4 GM/DL 11/29/2012 CHEM 14 9072661 CHLORIDE 106 MMOL/L 11/29/2012 CHEM 14 3476386 BILI TOT 0.4 MG/DL 11/29/2012 CHEM 14 0998574 ALK PHOS 86 U/L 11/29/2012 CHEM 14 3723301 SODIUM 141 MMOL/L 11/29/2012 CHEM 14 2334032 CREATININE 0.80 MG/DL 11/29/2012 CHEM 14 0977606 CALCIUM 9.7 MG/DL 11/29/2012 CHEM 14 2409460 POTASSIUM 4.0 MMOL/L 11/29/2012 CHEM 14 0645557 PROT TOT 6.6 GM/DL 11/29/2012 CHEM 14 6856978 GLUCOSE 112 MG/DL 11/29/2012 CHEM 14 4014319 BICARB 29 MMOL/L 11/29/2012 CHEM 14 0940743 ANION GAP 6 MEQ/L 11/29/2012 A1C HPLC 8361881 A1C HPLC 76343-7 5.5 % 11/29/2012 LIPID GRP HDL TEST 54 MG/DL 11/29/2012 LIPID GRP TRIG 77 MG/DL 11/29/2012 LIPID GRP TEST LDL 78 MG/DL 11/29/2012 LIPID GRP CHOL 147 MG/DL 11/29/2012 LIPID GRP RCHOL/HDL 2.72 RATIO 11/29/2012 FREE T4 1360375 FREE T4 1.23 NG/DL 11/29/2012 GFR CALC 1050628 GFR AA >60 ML/MIN 11/29/2012 GFR CALC 5443188 GFR NON-AA >60 ML/MIN 11/29/2012 CHEM 14 2057886 AST 23 U/L 08/07/2012 CHEM 14 9696223 ALT 34 IU/L 08/07/2012 CHEM 14 7739527 BUN 26 MG/DL 08/07/2012 CHEM 14 3736811 ALBUMIN 4.4 GM/DL 08/07/2012 CHEM 14 9284714 CHLORIDE 105 MMOL/L 08/07/2012 CHEM 14 4930225 BILI TOT 0.5 MG/DL 08/07/2012 CHEM 14 9481422 ALK PHOS 79 U/L 08/07/2012 CHEM 14 9442159 SODIUM 140 MMOL/L 08/07/2012 CHEM 14 9307354 CREATININE 0.71 MG/DL 08/07/2012 CHEM 14 0705872 CALCIUM 10.4 MG/DL 08/07/2012 CHEM 14 4861601 POTASSIUM 3.8 MMOL/L 08/07/2012 CHEM 14 8253123 PROT TOT 6.8 GM/DL 08/07/2012 CHEM 14 3273122 GLUCOSE 104 MG/DL 08/07/2012 CHEM 14 0054489 BICARB 27 MMOL/L 08/07/2012 CHEM 14 8541212 ANION GAP 8 MEQ/L 08/07/2012 A1C HPLC 6860310 A1C HPLC 33118-5 5.4 % 08/07/2012 FREE T4 3010029 FREE T4 1.11 NG/DL 08/07/2012 LIPID GRP HDL TEST 50 MG/DL 08/07/2012 LIPID GRP TRIG 127 MG/DL 08/07/2012 LIPID GRP TEST LDL 93 MG/DL 08/07/2012 LIPID GRP CHOL 168 MG/DL 08/07/2012 LIPID GRP RCHOL/HDL 3.36 RATIO 08/07/2012 CBC 2210448 WBC 8.7 10e9/L 08/07/2012 CBC 9113224 RBC 4.67 10e12/L 08/07/2012 CBC 9315127 HGB 14.4 g/dL 08/07/2012 CBC 4730608 HCT DET 42.8 % 08/07/2012 CBC 3012697 MCV 91.6 fL 08/07/2012 CBC 2219538 MCH 30.8 pg 08/07/2012 CBC 3291161 MCHC 33.6 g/dL 08/07/2012 CBC 6086290 PLT 271 10e9/L 08/07/2012 CBC 3685250 MPV 12.3 fL 08/07/2012 CBC 1272080 LARA % 50.6 % 08/07/2012 CBC 5384659 LY % 34.9 % 08/07/2012 CBC 9553173 MON % 9.1 % 08/07/2012 CBC 0254055 EOS % 5.1 % 08/07/2012 CBC 5414266 BASO % 0.3 % 08/07/2012 CBC 8862179 RDW 13.6 % 08/07/2012 CBC 2006690 ABS LARA 4.40 10e9/L 08/07/2012 CBC 2204271 ABS LYMPH 3.04 10e9/L 08/07/2012 CBC 0667899 ABS MONO 0.79 10e9/L 08/07/2012 CBC 7393759 ABS EOS 0.44 10e9/L 08/07/2012 CBC 9354152 ABS BASO 0.03 10e9/L 08/07/2012 CBC 5717627 RDW-SD 44.1 fL 08/07/2012 TSH 8262904 TSH 7.419 uIU/ML 08/07/2012 GFR CALC 9003995 GFR AA >60 ML/MIN 08/07/2012 GFR CALC 0822880 GFR NON-AA >60 ML/MIN 08/07/2012 A1C HPLC 4751737 A1C HPLC 09459-7 5.3 % 02/21/2012 TSH 1060323 TSH 0.832 uIU/ML 02/16/2012 FREE T4 2205173 FREE T4 1.04 NG/DL 02/16/2012 GFR CALC 2207941 GFR AA >60 ML/MIN 02/16/2012 GFR CALC 3757669 GFR NON-AA >60 ML/MIN 02/16/2012 BMP 0256465 GLUCOSE 112 MG/DL 02/16/2012 BMP 9869950 CREATININE 0.65 MG/DL 02/16/2012 BMP 9427622 BUN 17 MG/DL 02/16/2012 BMP 8062678 SODIUM 144 MMOL/L 02/16/2012 BMP 6638977 POTASSIUM 4.0 MMOL/L 02/16/2012 BMP 4215584 CHLORIDE 107 MMOL/L 02/16/2012 BMP 3868084 BICARB 29 MMOL/L 02/16/2012 BMP 5562676 ANION GAP 8 MEQ/L 02/16/2012 BMP 7090297 CALCIUM 9.5 MG/DL 02/16/2012 CBC 1554174 WBC 7.1 10e9/L 02/16/2012 CBC 4857413 RBC 4.47 10e12/L 02/16/2012 CBC 5986398 HGB 13.5 g/dL 02/16/2012 CBC 2156566 HCT DET 40.7 % 02/16/2012 CBC 3521898 MCV 91.1 fL 02/16/2012 CBC 7735595 MCH 30.2 pg 02/16/2012 CBC 4603347 MCHC 33.2 g/dL 02/16/2012 CBC 6254516 PLT 238 10e9/L 02/16/2012 CBC 0244699 MPV 11.4 fL 02/16/2012 CBC 5018721 LARA % 55.7 % 02/16/2012 CBC 9851451 LY % 29.6 % 02/16/2012 CBC 3357757 MON % 9.2 % 02/16/2012 CBC 2952682 EOS % 5.1 % 02/16/2012 CBC 8103339 BASO % 0.4 % 02/16/2012 CBC 6818496 RDW 13.0 % 02/16/2012 CBC 3195661 ABS LARA 3.95 10e9/L 02/16/2012 CBC 3729473 ABS LYMPH 2.10 10e9/L 02/16/2012 CBC 3723557 ABS MONO 0.65 10e9/L 02/16/2012 CBC 2616290 ABS EOS 0.36 10e9/L 02/16/2012 CBC 5315668 ABS BASO 0.03 10e9/L 02/16/2012 CBC 8134795 RDW-SD 42.4 fL 02/16/2012 URINALYSIS NONAUTO W/O SCOPE 72917 Specific [place] 1.015 DateTime(Free Text in Aprima) URINALYSIS NONAUTO W/O SCOPE 19957 PH 7 DateTime(Free Text in Aprima) URINALYSIS NONAUTO W/O SCOPE 56426 GLUCOSE neg DateTime(Free Text in Aprima) URINALYSIS NONAUTO W/O SCOPE 93852 Protein 1+ DateTime(Free Text in Aprima) URINALYSIS NONAUTO W/O SCOPE 72227 Blood neg DateTime(Free Text in Aprima) URINALYSIS NONAUTO W/O SCOPE 75241 Bilirubin neg DateTime(Free Text in Aprima) URINALYSIS NONAUTO W/O SCOPE 71184 Ketones neg DateTime(Free Text in Aprima) URINALYSIS NONAUTO W/O SCOPE 56077 Urobilinogen neg DateTime(Free Text in Aprima) URINALYSIS NONAUTO W/O SCOPE 83199 Nitrite postive DateTime(Free Text in Aprima) URINALYSIS NONAUTO W/O SCOPE 95633 Leukocytes 3+ DateTime(Free Text in Aprima) URINALYSIS NONAUTO W/O SCOPE 46834 Specific [place] 1.030 DateTime(Free Text in Aprima) URINALYSIS NONAUTO W/O SCOPE 12235 PH 6 DateTime(Free Text in Aprima) URINALYSIS NONAUTO W/O SCOPE 47539 GLUCOSE neg DateTime(Free Text in Aprima) URINALYSIS NONAUTO W/O SCOPE 61843 Protein neg DateTime(Free Text in Aprima) URINALYSIS NONAUTO W/O SCOPE 90238 Blood neg DateTime(Free Text in Aprima) URINALYSIS NONAUTO W/O SCOPE 60725 Bilirubin neg DateTime(Free Text in Aprima) URINALYSIS NONAUTO W/O SCOPE 32951 Ketones neg DateTime(Free Text in Aprima) URINALYSIS NONAUTO W/O SCOPE 96215 Urobilinogen neg DateTime(Free Text in Aprima) URINALYSIS NONAUTO W/O SCOPE 81375 Nitrite neg DateTime(Free Text in Aprima) URINALYSIS NONAUTO W/O SCOPE 38676 Leukocytes trace DateTime(Free Text in Aprima) URINALYSIS NONAUTO W/O SCOPE 54865 Specific [place] 1.005 DateTime(Free Text in Aprima) URINALYSIS NONAUTO W/O SCOPE 73209 PH 5 DateTime(Free Text in Aprima) URINALYSIS NONAUTO W/O SCOPE 51036 GLUCOSE neg DateTime(Free Text in Aprima) URINALYSIS NONAUTO W/O SCOPE 25519 Protein neg DateTime(Free Text in Aprima) URINALYSIS NONAUTO W/O SCOPE 00724 Blood neg DateTime(Free Text in Aprima) URINALYSIS NONAUTO W/O SCOPE 07734 Bilirubin neg DateTime(Free Text in Aprima) URINALYSIS NONAUTO W/O SCOPE 16653 Ketones neg DateTime(Free Text in Aprima) URINALYSIS NONAUTO W/O SCOPE 32965 Urobilinogen neg DateTime(Free Text in Aprima) URINALYSIS NONAUTO W/O SCOPE 19384 Nitrite neg DateTime(Free Text in Aprima) URINALYSIS NONAUTO W/O SCOPE 60636 Leukocytes neg DateTime(Free Text in Aprima) UA 11207 Specific [place] 1.030 DateTime(Free Text in ) UA 64084 PH 5 DateTime(Free Text in ) UA 27037 GLUCOSE neg DateTime(Free Text in ) UA 72866 Protein trace DateTime(Free Text in ) UA 02721 Blood large DateTime(Free Text in ) UA 03160 Bilirubin neg DateTime(Free Text in ) UA 79646 Ketones neg DateTime(Free Text in ) UA 27587 Urobilinogen neg DateTime(Free Text in ) UA 41926 Nitrite neg DateTime(Free Text in ) UA 39565 Leukocytes large DateTime(Free Text in ) Review of Systems System Result Effective Dates Constitutional recent illness 09/12/2017 Constitutional chills 09/12/2017 [...] Date TRIAMCINOLONE ACET INJ NOS CPT-4: J3301 06/27/2017 THER/PROPH/DIAG INJ SC/IM CPT-4: 41111 04/20/2017 TRIAMCINOLONE ACET INJ NOS CPT-4: J3301 04/20/2017 TRIAMCINOLONE ACET INJ NOS CPT-4: J3301 03/14/2017 ROCEPHIN, PER 250 MG CPT- 4: J0696 03/14/2017 DESTRUCT PREMALG LESION CPT-4: 43381 12/05/2016 DESTRUCT PREMALG LES 2-14 CPT-4: 24850 12/05/2016 URINALYSIS NONAUTO W/O SCOPE CPT-4: 14139 11/28/2016 ROCEPHIN, PER 250 MG CPT- 4: J0696 11/28/2016 PPPS, SUBSEQ VISIT CPT- 4: G0439 11/07/2016 THER/PROPH/DIAG INJ SC/IM CPT-4: 78127 11/07/2016 TRIAMCINOLONE ACET INJ NOS CPT-4: J3301 11/07/2016 ROCEPHIN, PER 250 MG CPT- 4: J0696 11/07/2016 THER/PROPH/DIAG INJ SC/IM CPT-4: 91027 08/15/2016 TRIAMCINOLONE ACET INJ NOS CPT-4: J3301 08/15/2016 ROCEPHIN, PER 250 MG CPT- 4: J0696 08/15/2016 URINALYSIS NONAUTO W/O SCOPE CPT-4: 42290 05/05/2016 ROCEPHIN, PER 250 MG CPT- 4: J0696 12/07/2015 TRIAMCINOLONE ACET INJ NOS CPT-4: J3301 11/24/2015 ROCEPHIN, PER 250 MG CPT- 4: J0696 11/24/2015 THER/PROPH/DIAG INJ SC/IM CPT-4: 31368 11/24/2015 THER/PROPH/DIAG INJ SC/IM CPT-4: 36138 08/27/2015 KETOROLAC TROMETHAMINE INJ CPT-4: J1885 08/27/2015 PROMETHAZINE HCL INJECTION CPT-4: J2550 08/27/2015 THER/PROPH/DIAG INJ SC/IM CPT-4: 42527 08/10/2015 TRIAMCINOLONE ACET INJ NOS CPT-4: J3301 08/10/2015 ROCEPHIN, PER 250 MG CPT- 4: J0696 08/10/2015 C LUISUN RTS (CULTURE OTHR SPECIMN AEROBIC) CPT-4: 64445 07/28/2015 THER/PROPH/DIAG INJ SC/IM CPT-4: 85618 03/19/2015 TRIAMCINOLONE ACET INJ NOS CPT-4: J3301 03/19/2015 ROCEPHIN, PER 250 MG CPT- 4: J0696 06/23/2014 TRIAMCINOLONE ACET INJ NOS CPT-4: J3301 06/23/2014 INJ TRIGGER POINT 1/2 MUSCL CPT-4: 03686 06/05/2014 URINALYSIS NONAUTO W/O SCOPE CPT-4: 32934 02/11/2014 URINALYSIS NONAUTO W/O SCOPE CPT-4: 47121 10/15/2013 ROCEPHIN, PER 250 MG CPT- 4: J0696 09/24/2013 THER/PROPH/DIAG INJ SC/IM CPT-4: 75167 09/19/2013 ROCEPHIN, PER 250 MG CPT- 4: J0696 09/19/2013 PRESCRIP TRANSMIT VIA ERX SY CPT-4: G8553 08/05/2013 ROCEPHIN, PER 250 MG CPT- 4: J0696 07/10/2013 THER/PROPH/DIAG INJ SC/IM CPT-4: 25924 07/10/2013 TRIAMCINOLONE ACET INJ NOS CPT-4: J3301 07/10/2013 PRESCRIP TRANSMIT VIA ERX SY CPT-4: G8553 07/10/2013 60091 EST. PATIENT, LEVEL III CPT-4: 79408 06/03/2013 PRESCRIP TRANSMIT VIA ERX SY CPT-4: G8553 06/03/2013 PRESCRIP TRANSMIT VIA ERX SY CPT-4: G8553 05/07/2013 ROUTINE VENIPUNCTURE CPT- 4: 15880 04/30/2013 ROUTINE VENIPUNCTURE CPT- 4: 59218 11/29/2012 TRIAMCINOLONE ACET INJ NOS CPT-4: J3301 09/24/2012 THER/PROPH/DIAG INJ SC/IM CPT-4: 61189 09/24/2012 URINALYSIS NONAUTO W/O SCOPE CPT-4: 83844 09/24/2012 PRESCRIP TRANSMIT VIA ERX SY CPT-4: G8553 09/24/2012 PRESCRIP TRANSMIT VIA ERX SY CPT-4: G8553 09/10/2012 PRESCRIP TRANSMIT VIA ERX SY CPT-4: G8553 08/08/2012 ROUTINE VENIPUNCTURE CPT- 4: 01389 08/07/2012 ROUTINE VENIPUNCTURE CPT- 4: 46656 02/16/2012 URINALYSIS NONAUTO W/O SCOPE CPT-4: 82547 02/15/2012 ROCEPHIN, PER 250 MG CPT- 4: J0696 02/15/2012 PRESCRIP TRANSMIT VIA ERX SY CPT-4: G8553 02/15/2012 ROUTINE VENIPUNCTURE CPT- 4: 11973 11/08/2011 ROCEPHIN, PER 250 MG CPT- 4: J0696 07/14/2011 THER/PROPH/DIAG INJ SC/IM CPT-4: 17038 07/14/2011 Influenza Virus Vaccine, Split Virus, >3 Yrs, IM CPT-4: 01248 05/23/2011 IMMUNIZATION ADMIN CPT- 4: 71332 05/23/2011 THER/PROPH/DIAG INJ SC/IM CPT-4: 14526 05/03/2011 ROCEPHIN, PER 250 MG CPT- 4: J0696 05/03/2011 TRIAMCINOLONE ACET INJ NOS CPT-4: J3301 05/03/2011 Vital Signs Date Vital 09/12/2017 Blood Pressure 1: 140/86 Code: 8480-6 Heart Rate 1: 62 bpm SpO2: 96% Temperature: 36.6 (C) / 97.8 (F) Weight: 153 lbs 07/25/2017 Blood Pressure 1: 140/72 Code: 8480-6 BMI: 31.3 Code: 58987-1 Heart Rate 1: 76 bpm Height: 4'11" SpO2: 97% Temperature: 37.2 (C) / 99.0 (F) Weight: 155 lbs 06/27/2017 Blood Pressure 1: 144/84 Code: 8480-6 BMI: 31.1 Code: 16293-7 Heart Rate 1: 63 bpm Height: 4'11" SpO2: 99% Temperature: 36.4 (C) / 97.6 (F) Weight: 154 lbs 05/08/2017 Blood Pressure 1: 142/86 Code: 8480-6 BMI: 30.9 Code: 34728-1 Height: 4'11" Temperature: 36.3 (C) / 97.4 (F) Weight: 153 lbs 03/14/2017 Blood Pressure 1: 146/82 Code: 8480-6 BMI: 30.9 Code: 85230-3 Heart Rate 1: 64 bpm Height: 4'11" SpO2: 94% Weight: 153 lbs 02/20/2017 Blood Pressure 1: 142/80 Code: 8480-6 BMI: 30.9 Code: 84339-3 Heart Rate 1: 75 bpm Height: 4'11" SpO2: 97% Weight: 153 lbs 02/06/2017 Blood Pressure 1: 138/90 Code: 8480-6 BMI: 31.5 Code: 14246-4 Heart Rate 1: 61 bpm Height: 4'11" SpO2: 98% Weight: 156 lbs 12/05/2016 Blood Pressure 1: 122/72 Code: 8480-6 Heart Rate 1: 59 bpm Height: 4'11" SpO2: 98% Weight: 11/28/2016 Blood Pressure 1: 154/86 Code: 8480-6 BMI: 31.3 Code: 22945-0 Heart Rate 1: 64 bpm Height: 4'11" SpO2: 94% Temperature: 36.2 (C) / 97.2 (F) Weight: 155 lbs 11/07/2016 Blood Pressure 1: 128/64 Code: 8480-6 BMI: 31.5 Code: 02510-7 Heart Rate 1: 59 bpm Height: 4'11" SpO2: 97% Weight: 156 lbs 08/15/2016 Blood Pressure 1: 110/62 Code: 8480-6 BMI: 31.5 Code: 03726-5 Heart Rate 1: 76 bpm Height: 4'11" SpO2: 97% Weight: 156 lbs 06/07/2016 Blood Pressure 1: 120/80 Code: 8480-6 BMI: 32.9 Code: 93002-1 Heart Rate 1: 63 bpm Height: 4'11" SpO2: 93% Temperature: 36.5 (C) / 97.7 (F) Weight: 163 lbs 03/15/2016 Blood Pressure 1: 90/42 Code: 8480-6 Heart Rate 1: 65 bpm SpO2: 94% 03/14/2016 Blood Pressure 1: 188/110 Code: 8480-6 Heart Rate 1: 68 bpm SpO2: 96% 02/22/2016 Blood Pressure 1: 158/80 Code: 8480-6 BMI: 32.7 Code: 98796-4 Heart Rate 1: 71 bpm Height: 4'11" SpO2: 95% Weight: 162 lbs 12/07/2015 Blood Pressure 1: 140/88 Code: 8480-6 BMI: 32.9 Code: 87565-3 Heart Rate 1: 99 bpm Height: 4'11" SpO2: 94% Temperature: 35.9 (C) / 96.6 (F) Weight: 163 lbs 11/24/2015 Blood Pressure 1: 144/78 Code: 8480-6 BMI: 33.7 Code: 27641-1 Heart Rate 1: 60 bpm Height: 4'11" SpO2: 98% Temperature: 36.6 (C) / 97.9 (F) Weight: 167 lbs 08/27/2015 Blood Pressure 1: 164/82 Code: 8480-6 BMI: 32.3 Code: 30652-0 Heart Rate 1: 60 bpm Height: 4'11" SpO2: 93% Weight: 160 lbs 08/10/2015 Blood Pressure 1: 130/60 Code: 8480-6 BMI: 32.5 Code: 54208-6 Heart Rate 1: 64 bpm Height: 4'11" SpO2: 97% Weight: 161 lbs 07/28/2015 Blood Pressure 1: 124/68 Code: 8480-6 BMI: 32.5 Code: 72938-3 Heart Rate 1: 69 bpm Height: 4'11" SpO2: 97% Weight: 161 lbs 06/11/2015 Blood Pressure 1: 148/80 Code: 8480-6 BMI: 32.9 Code: 91289-7 Heart Rate 1: 70 bpm Height: 4'11" SpO2: 94% Weight: 163 lbs 03/19/2015 Blood Pressure 1: 150/102 Code: 8480-6 Blood Pressure 2: 152/92 Code: 8480-6 BMI: 32.5 Code: 76532-7 Heart Rate 1: 71 bpm Height: 4'11" SpO2: 96% Weight: 161 lbs 01/07/2015 Blood Pressure 1: 126/84 Code: 8480-6 Heart Rate 1: 80 bpm Height: 4'11" 09/23/2014 Blood Pressure 1: 112/72 Code: 8480-6 BMI: 33.9 Code: 48012-3 Heart Rate 1: 72 bpm Height: 4'11" Weight: 168 lbs 08/05/2014 Blood Pressure 1: 140/86 Code: 8480-6 BMI: 33.3 Code: 89640-3 Height: 4'11" Weight: 165 lbs 06/23/2014 Blood Pressure 1: 132/70 Code: 8480-6 BMI: 32.9 Code: 21236-1 Heart Rate 1: 58 bpm Height: 4'11" Temperature: 36.0 (C) / 96.8 (F) Weight: 163 lbs 06/05/2014 Blood Pressure 1: 121/85 Code: 8480-6 BMI: 34.3 Code: 94260-2 Height: 4'11" Weight: 170 lbs 04/03/2014 Blood Pressure 1: 128/80 Code: 8480-6 Heart Rate 1: 88 bpm Weight: 167 lbs 03/07/2014 Blood Pressure 1: 122/82 Code: 8480-6 BMI: 33.9 Code: 94336-1 Heart Rate 1: 68 bpm Height: 4'11" Weight: 168 lbs 11/21/2013 Blood Pressure 1: 100/58 Code: 8480-6 BMI: 33.7 Code: 67050-4 Heart Rate 1: 64 bpm Height: 4'11" Weight: 167 lbs 09/24/2013 Blood Pressure 1: 148/88 Code: 8480-6 Heart Rate 1: 68 bpm Weight: 09/19/2013 Blood Pressure 1: 120/80 Code: 8480-6 BMI: 33.9 Code: 35721-7 Heart Rate 1: 80 bpm Height: 4'11" Temperature: 36.9 (C) / 98.5 (F) Weight: 168 lbs 08/05/2013 Blood Pressure 1: 128/80 Code: 8480-6 BMI: 34.3 Code: 98282-7 Heart Rate 1: 64 bpm Height: 4'11" Temperature: 36.2 (C) / 97.2 (F) Weight: 170 lbs 07/10/2013 Blood Pressure 1: 120/84 Code: 8480-6 BMI: 36.0 Code: 85500-9 Heart Rate 1: 90 bpm Height: 4'11" SpO2: 97% Temperature: 36.8 (C) / 98.2 (F) Weight: 178 lbs 06/03/2013 Blood Pressure 1: 136/94 Code: 8480-6 BMI: 34.7 Code: 92348-3 Heart Rate 1: 68 bpm Height: 4'11" Temperature: 36.7 (C) / 98.0 (F) Weight: 172 lbs 05/13/2013 Blood Pressure 1: 132/90 Code: 8480-6 Heart Rate 1: 68 bpm 05/07/2013 Blood Pressure 1: 168/100 Code: 8480-6 BMI: 34.3 Code: 13310-5 Heart Rate 1: 76 bpm Height: 4'11" Weight: 170 lbs 12/03/2012 Blood Pressure 1: 142/78 Code: 8480-6 BMI: 33.5 Code: 81165-7 Heart Rate 1: 76 bpm Height: 4'11" Weight: 166 lbs 09/24/2012 Blood Pressure 1: 116/70 Code: 8480-6 Heart Rate 1: 68 bpm Respiratory Rate: 16 bpm Temperature: 36.9 (C) / 98.4 (F) Weight: 162 lbs 09/10/2012 Blood Pressure 1: 116/80 Code: 8480-6 BMI: 33.7 Code: 73771-9 Heart Rate 1: 76 bpm Height: 4'11" [...] 1: 149/85 Code: 8480-6 BMI: 32.9 Code: 74323-7 Heart Rate 1: 79 bpm Height: 4'11" Weight: 164 lbs 05/03/2011 Blood Pressure 1: 122/79 Code: 8480-6 BMI: 30.8 Code: 67324-0 Heart Rate 1: 72 bpm Height: 5'1" Weight: 163 lbs 04/25/2011 Blood Pressure 1: 137/84 Code: 8480-6 BMI: 31.0 Code: 36311-5 Heart Rate 1: 63 bpm Height: 5'1" Respiratory Rate: 20 bpm Weight: 164 lbs Functional Status No Functional Status data History of Present Illness Symptom Name Status Result Effective Date Notes abdominal pain Location diffusely 09/12/2017 None abdominal [...] surg in december. then took trip [facility] to see mother and has had [...] Quality chronic 08/01/2011 states went shopping on [employer] over night without taking any of medications [...] data Encounters Encounter Performer Location Codes Date 63113 EST. PATIENT, LEVEL IV Diagnosis: Diarrhea, unspecified[ICD10: R19.7] Diagnosis: Generalized abdominal pain[ICD10: R10.84] Diagnosis: Other allergic rhinitis[ICD10: J30.89] Diagnosis: Other acute sinusitis[ICD10: J01.80] Isabelle Goldman MD, [facility] CPT- 4: 93511 09/12/2017 25425 EST. PATIENT, LEVEL III Diagnosis: Acute laryngopharyngitis[ICD10: J06.0] Diagnosis: Other allergic rhinitis[ICD10: J30.89] Diagnosis: Cough[ICD10: R05] Diagnosis: Wheezing[ICD10: R06.2] Isabelle Goldman MD, [facility] CPT-4: 55088 07/25/2017 ([id number]) 93200 EST. PATIENT, LEVEL IV Diagnosis: Acute recurrent maxillary sinusitis[ICD10: J01.01] Diagnosis: Cervicalgia[ICD10: M54.2] Diagnosis: Diarrhea, unspecified[ICD10: R19.7] Shahida Goldman MD, [facility] CPT-4: 23252 06/27/2017 ([id number]) 77291 EST. PATIENT, LEVEL III Diagnosis: Chronic maxillary sinusitis[ICD10: J32.0] Diagnosis: Gastro-esophageal reflux disease without esophagitis[ICD10: K21.9] Shahida Goldman MD, [facility] CPT-4: 03147 05/08/2017 ([id number]) 11890 EST. PATIENT, LEVEL III Diagnosis: Acute recurrent maxillary sinusitis[ICD10: J01.01] Shahida Goldman MD, [facility] CPT-4: 05436 03/14/2017 15211 EST. PATIENT, LEVEL IV Diagnosis: Epigastric pain[ICD10: R10.13] Diagnosis: Left upper quadrant pain[ICD10: R10.12] Diagnosis: Left lower quadrant pain[ICD10: R10.32] Isabelle Goldman MD, [facility] CPT-4: 94555 02/20/2017 ([id number]) 03620 EST. PATIENT, LEVEL IV Diagnosis: Generalized anxiety disorder[ICD10: F41.1] Diagnosis: Major depressive disorder, recurrent, moderate[ICD10: F33.1] Diagnosis: Left upper quadrant pain[ICD10: R10.12] Diagnosis: Epigastric pain[ICD10: R10.13] Diagnosis: Actinic keratosis[ICD10: L57.0] Melba Goldman MD, [facility] CPT-4: 80935 02/06/2017 ([id number]) 49516 EST. PATIENT, LEVEL III Diagnosis: Actinic keratosis[ICD10: L57.0] Diagnosis: Major depressive disorder, recurrent, moderate[ICD10: F33.1] Melba Goldman MD, [facility] CPT-4: 97785 12/05/2016 ([id number]) 81776 EST. PATIENT, LEVEL III Diagnosis: Acute recurrent maxillary sinusitis[ICD10: J01.01] Diagnosis: Dysuria[ICD10: R30.0] Shahida Goldman MD, [facility] CPT-4: 42949 11/28/2016 62873 EST. PATIENT, LEVEL IV Diagnosis: Other acute sinusitis[ICD10: J01.80] Diagnosis: Acute laryngopharyngitis[ICD10: J06.0] Diagnosis: Other allergic rhinitis[ICD10: J30.89] Isabelle Goldman MD, [facility] CPT- 4: 74478 08/15/2016 ([id number]) 18126 EST. PATIENT, LEVEL III Diagnosis: Acute recurrent maxillary sinusitis[ICD10: J01.01] Diagnosis: Low back pain[ICD10: M54.5] Shahida Goldman MD, [facility] CPT-4: 40515 06/07/2016 ([id number]) Miscellaneous no charge Diagnosis: Essential (primary) hypertension[ICD10: I10] Shahida Goldman MD, [facility] CPT-4: 27398 03/15/2016 42622 EST. PATIENT, LEVEL IV Diagnosis: Essential (primary) hypertension[ICD10: I10] Diagnosis: Headache[ICD10: R51] Diagnosis: Generalized anxiety disorder[ICD10: F41.1] Shahida Goldman MD, [facility] CPT-4: 52686 03/14/2016 64470 EST. PATIENT, LEVEL III Diagnosis: Laceration without foreign body, left lower leg, initial encounter[ICD10: S81.812A] Isabelle Goldman MD, [facility] CPT-4: 97012 02/22/2016 ([id number]) 42864 EST. PATIENT, LEVEL III Diagnosis: Acute recurrent maxillary sinusitis[ICD10: J01.01] Diagnosis: Cough[ICD10: R05] Diagnosis: Allergic rhinitis due to pollen[ICD10: J30.1] Shahida Goldman MD, [facility] CPT-4: 05778 12/07/2015 ([id number]) 47747 EST. PATIENT, LEVEL IV Diagnosis: Essential (primary) hypertension[ICD10: I10] Diagnosis: Acute recurrent maxillary sinusitis[ICD10: J01.01] Diagnosis: Generalized anxiety disorder[ICD10: F41.1] Diagnosis: Cervicalgia[ICD10: M54.2] Diagnosis: Generalized intra-abdominal and pelvic swelling, mass and lump[ICD10: R19.07] Melba Goldman MD, [facility] CPT-4: 02394 11/24/2015 94818 EST. PATIENT, LEVEL III Diagnosis: Other migraine, intractable, without status migrainosus[ICD10: G43.819] Isabelle Goldman MD, [facility] CPT-4: 44480 08/27/2015 08742 EST. PATIENT, LEVEL III Diagnosis: Acute recurrent maxillary sinusitis[ICD10: J01.01] Diagnosis: Candidal stomatitis[ICD10: B37.0] Diagnosis: Acute laryngopharyngitis[ICD10: J06.0] Isabelle Goldman MD, [facility] CPT- 4: 28081 08/10/2015 30591 EST. PATIENT, LEVEL III Diagnosis: Superficial foreign body of left hand, initial encounter[ICD10: S60.552A] Melba Goldman MD, [facility] CPT-4: 94721 07/28/2015 ([id number]) 75192 EST. PATIENT, LEVEL III Diagnosis: Essential (primary) hypertension[ICD10: I10] Diagnosis: Tinea cruris[ICD10: B35.6] Diagnosis: Abnormal levels of other serum enzymes[ICD10: R74.8] Shahida Goldman MD, [facility] CPT-4: 86460 06/11/2015 ([id number]) 53482 EST. PATIENT, LEVEL IV Diagnosis: ESSENTIAL HYPERTENSION[ICD9: 401.9] Diagnosis: Hypothyroid[ICD9: 244.9] Diagnosis: ALLERGIC RHINITIS[ICD9: 477.9] Diagnosis: Anxiety[ICD9: 300.00] Diagnosis: Sleep apnea[ICD9: 780.57] Shahida Goldman MD, [facility] CPT-4: 28612 03/19/2015 ([id number]) 85894 EST. PATIENT, LEVEL III Diagnosis: ACUTE SINUSITIS[ICD9: 461.9] Celi Goldman MD, [facility] CPT-4: 94331 01/07/2015 ([id number]) 19436 EST. PATIENT, LEVEL III Diagnosis: Conjunctivitis[ICD9: 372.30] Shahida Goldman MD, [facility] CPT-4: 77566 09/23/2014 13799 EST. PATIENT, LEVEL II Diagnosis: Noninfected skin tear of leg[ICD9: 891.0] Shahida Goldman MD, [facility] CPT-4: 67211 08/05/2014 ([id number]) 22588 EST. PATIENT, LEVEL III Diagnosis: Chronic maxillary sinusitis[ICD9: 473.0] Shahida Goldman MD, [facility] CPT-4: 88507 06/23/2014 95126 EST. PATIENT, LEVEL II Diagnosis: Headache[ICD9: 784.0] Shahida Goldman MD, [facility] CPT-4: 29246 06/05/2014 ([id number]) 63357 EST. PATIENT, LEVEL III Diagnosis: Abrasion of right leg[ICD9: 916.0] Diagnosis: Headache[ICD9: 784.0] Diagnosis: ALLERGIC RHINITIS[ICD9: 477.9] Shahida Goldman MD, [facility] CPT-4: 51181 04/03/2014 44141 EST. PATIENT, LEVEL II Diagnosis: Tinea corporis[ICD9: 110.5] Diagnosis: Exposure to scabies[ICD9: V01.89] Shahida Goldman MD, [facility] CPT- 4: 01021 03/07/2014 ([id number]) 84411 EST. PATIENT, LEVEL III Diagnosis: ESSENTIAL HYPERTENSION[SNOMED: 56863792] Diagnosis: OSTEOARTH NOS-UNSPEC[ICD9: 715.90] Diagnosis: Lumbago[ICD9: 724.2] Diagnosis: Cervicalgia[ICD9: 723.1] Shahida Goldman MD, [facility] CPT-4: 72580 11/21/2013 ([id number]) 86928 EST. PATIENT, LEVEL III Diagnosis: DEPRESSIVE DISORDER NEC[ICD9: 311] Diagnosis: Paronychia[ICD9: 681.9] Melba Goldman MD [facility] CPT-4: 87309 09/24/2013 ([id number]) 87540 EST. PATIENT, LEVEL III Diagnosis: Paronychia[ICD9: 681.9] Diagnosis: Cellulitis[ICD9: 682.9] Melba Goldman MD, [facility] CPT-4: 67419 09/19/2013 ([id number]) 02948 EST. PATIENT, LEVEL III Diagnosis: Conjunctivitis[ICD9: 372.30] Diagnosis: Thrush[ICD9: 112.0] Shahida Goldman MD, [facility] CPT-4: 66037 08/05/2013 ([id number]) 85055 EST. PATIENT, LEVEL III Diagnosis: ACUTE MAXILLARY SINUSITIS[ICD9: 461.0] Diagnosis: COUGH[ICD9: 786.2] Diagnosis: Insomnia[ICD9: 780.52] Diagnosis: ESOPHAGEAL REFLUX[ICD9: 530.81] Melba Goldman MD, [facility] CPT-4: 62157 07/10/2013 ([id number]) Miscellaneous no charge Diagnosis: ESSENTIAL HYPERTENSION[SNOMED: 83988229] Melba Goldman MD, [facility] CPT-4: 63036 05/13/2013 ([id number]) 67444 EST. PATIENT, LEVEL IV Diagnosis: ESSENTIAL HYPERTENSION[SNOMED: 30689029] Diagnosis: HYPOTHYROIDISM[ICD9: 244.9] Diagnosis: OSTEOARTH NOS-UNSPEC[ICD9: 715.90] Melba Goldman MD, [facility] CPT- 4: 38553 05/07/2013 ([id number]) 06787 EST. PATIENT, LEVEL IV Diagnosis: Osteoarthritis[ICD9: 715.90] Diagnosis: Knee pain, bilateral[ICD9: 719.46] Diagnosis: Hip pain[ICD9: 719.45] Melba Goldman MD [facility] CPT-4: 69704 12/03/2012 ([id number]) 71501 EST. PATIENT, LEVEL III Diagnosis: Thrush[ICD9: 112.0] Melba Goldman MD [facility] CPT-4: 78434 09/24/2012 ([id number]) 55957 EST. PATIENT, LEVEL IV Diagnosis: ESSENTIAL HYPERTENSION[SNOMED: 24016370] Diagnosis: Thrush[ICD9: 112.0] Diagnosis: Sleep apnea[ICD9: 780.57] Melba Goldman MD [facility] CPT-4: 15459 09/10/2012 ([id number]) 71588 EST. PATIENT, LEVEL IV Diagnosis: Esophageal reflux[ICD9: 530.81] Diagnosis: Hypothyroid[ICD9: 244.9] Diagnosis: JOINT PAIN-MULT JOINTS[ICD9: 719.49] Diagnosis: ALLERGIC RHINITIS[ICD9: 477.9] Melba Goldman MD [facility] CPT-4: 94814 08/08/2012 ([id number]) 45304 EST. PATIENT, LEVEL IV Diagnosis: Urinary frequency[ICD9: 788.41] Diagnosis: EDEMA[ICD9: 782.3] Diagnosis: HYPOTHYROIDISM[ICD9: 244.9] Diagnosis: Fatigue[ICD9: 780.79] Melba Goldman MD [facility] CPT-4: 89815 02/15/2012 ([id number]) 38345 EST. PATIENT, LEVEL IV Diagnosis: Abdominal pain[ICD9: 789.00] Diagnosis: Fatigue[ICD9: 780.79] Diagnosis: Nausea[ICD9: 787.02] Melba Goldman MD [facility] CPT-4: 08312 11/10/2011 95070 EST. PATIENT, LEVEL IV Diagnosis: ESSENTIAL HYPERTENSION[SNOMED: 22838125] Diagnosis: DIARRHEA[ICD9: 787.91] Diagnosis: DEPRESSIVE DISORDER NEC[ICD9: 311] Diagnosis: Irritable bowel disease[ICD9: 564.1] Melba Goldman MD, [facility] CPT- 4: 06758 08/01/2011 38473 EST. PATIENT, LEVEL III Diagnosis: ACUTE SINUSITIS[ICD9: 461.9] Diagnosis: Cough[ICD9: 786.2] Shahida Goldman MD, [facility] CPT-4: 42533 07/14/2011 73325 EST. PATIENT, LEVEL IV Diagnosis: VACCIN FOR INFLUENZA[ICD9: V04.81] Diagnosis: ESSENTIAL HYPERTENSION[SNOMED: 15455483] Diagnosis: GENERALIZED ANXIETY DISEASE[ICD9: 300.02] Diagnosis: SLEEP DISTURBANCES[ICD9: 780.50] Shahida Goldman MD, [facility] CPT- 4: 54568 05/23/2011 57572 EST. PATIENT, LEVEL III Diagnosis: ACUTE SINUSITIS[ICD9: 461.9] Diagnosis: ALLERGIC RHINITIS[ICD9: 477.9] Diagnosis: Cough[ICD9: 786.2] Shahida Goldman MD, [facility] CPT-4: 06073 05/03/2011 29598 EST. PATIENT, LEVEL IV Diagnosis: ESSENTIAL HYPERTENSION[SNOMED: 82698676] Diagnosis: DEPRESSIVE DISORDER NEC[ICD9: 311] Diagnosis: Fatigue[ICD9: 780.79] Shahida Goldman MD, [facility] CPT-4: 41819 04/25/2011 Plan of Care Planned Activity Notes Codes Status Date Visit Plan: Diarrhea - recommended bland diet, [...] 09/12/2017 Appointment: Isabelle Orozco WPtel: [facility]4 [facility] (15 min) Moderate 09/12/2017 Patient Education: [...] 07/25/2017 Appointment: Isabelle Orozco WPtel: [facility]1 [facility] (30 min) Complex 07/25/2017 Patient Education: [...] 06/27/2017 Appointment: Shahida Manzo WPtel: [phone] [phone] (15 min) Moderate 06/27/2017 Patient Education: [...] improving. 05/08/2017 Appointment: Shahida Manzo WPtel: [phone] [phone] (15 min) Moderate 05/08/2017 Patient Education: [...] improvement. 03/14/2017 Appointment: Shahida Manzo WPtel: [phone] [phone] (15 min) Moderate 03/14/2017 Patient Education: Patient Medication Summary Completed 03/14/2017 Appointment: Shahida Manzo WPtel: [phone] [phone] (15 min) Moderate 02/21/2017 Visit Plan: [...] 02/20/2017 Appointment: Isabelle Orozco WPtel: [phone] [facility] (30 min) Complex 02/20/2017 Patient Education: [...] on use 02/06/2017 Appointment: Melba Goldman WPtel: [address] [place], [place] [address] (15 min) Moderate 02/06/2017 Patient Education: Patient [...] for this patient. 12/05/2016 Appointment: SusiMelba WPtel: [facility] Surgical Procedure 12/05/2016 Patient Education: Patient Medication Summary Completed 12/05/2016 Visit Plan: Sinusitis - Pt has acute infection - pain in face, maxillary region, Pt informed to use decongestant, RX given to patient, sinus rinses also recommended. Call if symptoms do not show improvement. Dysuria- culture urine 11/28/2016 Appointment: Shahida Manzo WPtel: [phone] [place] [phone] (15 min) Moderate 11/28/2016 Patient Education: Patient [...] of control. 11/07/2016 Appointment: Isabelle Orozco WPtel: [facility]2 [facility] [place] [address] - Annual Wellness Visit 11/07/2016 Patient Education: [...] 08/15/2016 Appointment: Isabelle Orozco WPtel: [facility] ([facility] min) Moderate 08/15/2016 Patient Education: [...] pain use. 06/07/2016 Appointment: Shahida Manzo WPtel: [phone] (10 min) Simple 06/07/2016 Patient Education: [...] today 03/14/2016 Appointment: Shahida Manzo WPtel: [phone] [phone] (15 min) Moderate 03/14/2016 Patient Education: Patient Medication Summary Completed 03/14/2016 Care Plan: COMPLETE CBC AUTOMATED LOINC : 73469-9 Pending 03/14/2016 Visit Plan: Cellulitis - The patient was instructed in appropriate wound care. The patient was instructed to use the antibiotic ointment as per RX. The patient is to call for any change in symptoms, increase in size of the lesion, increase in pain. 02/22/2016 Appointment: Isabel[facility]rozco [facility] [phone] [facility] (15 min) Moderate 02/22/2016 Patient Education: [...] dai 11/24/2015 [facility]ment: [phone] (30 min) Complex 11/24/2015 Patient Education: Patient Medication Summary Completed 11/24/2015 Patient Education: Obesity Completed 11/24/2015 Patient Education: Hypertension Completed 11/24/2015 Patient Education: .Cervicalgia Neck Pain Completed 11/24/2015 Care Plan: Referral Order SNOMED-CT : [id number] Ordered 11/24/2015 Visit Plan: Acute Migraine - [...] to monitor 06/11/2015 Appointment: Shahida Manzo WPtel: [phone] (15 min) Moderate 06/11/2015 Patient Education: [...] Sleep apnea-patient needs new CPAP-will contact [facility] patient Pt reports that she uses her [...] new CPAP-will contact [facility] patient 03/19/2015 Visit Plan: Hypertension - [...] apnea-patient needs new CPAP-will contact [facility] patient Pt reports that she [...] Patient Medication Summary Completed 01/07/2015 Patient Education: [facility] - Saving AutoInj - 18+ - Dynamic [...] areas dry Exposure to scabies-RX sent to [facility]. 03/07/2014 Appointment: Melba Goldman WPtel: [facility]5 [facility] [place] [...] change in blood pressure readings at home. Hplaemu-flipgdqzadb-izjxhwut duragesic patch-appt with Dr Ortiz for pain management 11/21/2013 Appointment: Shahida Manzo WPtel: [phone] Follow up 11/21/2013 Patient Education: Patient Medication Summary Completed 11/21/2013 Patient Education: Hypertension Completed 11/21/2013 Patient Education: .Cervicalgia Neck Pain Completed 11/21/2013 Appointment: Melba Goldman WPtel: [facility]5 [facility] Other 11/19/2013 Appointment: Melba Goldman WPtel: [address] [place], [place] [phone] Follow up 11/06/2013 Appointment: Melba Goldman WPtel: [address] [place], [place] [phone] Lab Draw 10/15/2013 Patient Education: Patient Medication [...] AT BEDTIME 09/24/2013 Appointment: Shahida Manzo WPtel: [address] [place], [place] [phone] Other 09/24/2013 Patient Education: Patient Medication Summary Completed 09/24/2013 Visit Plan: Paronychia/Cellulitis - continue with oral antibiotics as previously directed, return to clinic as previously directed, call for acute change in symptoms, worsening redness, warmth, discharge. 09/19/2013 Appointment: Melba Goldman WPtel: [address] [place], [place] [phone] Other 09/19/2013 Patient Education: Patient Medication Summary Completed 09/19/2013 Visit Plan: Conjunctivitis - rx for eye drops/lube sent electronically to the patient's pharmacy. The patient has been instructed to cleanse affected eye with warm washcloth, then place medication into affected eye four times daily. Thrush-refill nystatin-call if symptoms do not resolve 08/05/2013 Appointment: Shahida Manzo WPtel: [address] [place], [place] [phone] Sick 08/05/2013 Patient Education: Patient Medication Summary [...] improvement. 06/03/2013 Appointment: [phone] Follow up 06/03/2013 Patient Education: Patient Medication Summary Completed 06/03/2013 Patient Education: Hypertension Completed 06/03/2013 Appointment: [phone] [facility] [facility] Visit 05/13/2013 Patient Education: Patient [...] control. 05/07/2013 Appointment: [phone] [facility] Follow up 05/07/2013 Patient Education: Patient Medication Summary Completed 05/07/2013 Patient Education: Hypertension Completed 05/07/2013 Patient Education: Patient Medication Summary Completed 04/30/2013 Patient Education: Hypertension Completed 04/30/2013 Visit Plan: Arthritis- occasionally uncontrolled symptoms- recommend pt to take antiinflammatory as directed for pain control. Use tylenol for break through pain symptoms. 12/03/2012 Appointment: [facility]ba Goldman [facility]el[phone] [facility] Follow up 12/03/2012 Patient Education: Patient [...] resolve 09/24/2012 Appointment: Shahida Manzo [facility]el[phone] [phone] [facility] 09/24/2012 Patient Education: Patient Medication Summary [...] diflucan 09/10/2012 Appointment: Melba Goldman [facility]Ptel[facility] [phone] [facility] Follow up 09/10/2012 Patient Education: Patient [...] pain symptoms. 08/08/2012 Appointment: Shahida Manzo WPtel: [phone] Follow up 08/08/2012 Patient Education: Patient Medication Summary Completed 08/08/2012 Patient Education: Patient Medication Summary Completed 08/07/2012 Patient Education: Hypertension Completed 08/07/2012 Appointment: Melba Goldman [facility]Ptel[facility] [phone] [facility] Lab Draw 02/16/2012 Patient Education: Patient Medication [...] Needs labs. 02/15/2012 Appointment: Melba Goldman WPtel: [facility] Other 02/15/2012 Patient Education: Patient Medication Summary Completed 02/15/2012 Visit Plan: Abdominal pain - ultrasound tomorrow AM nothing to eat before the ultrasound from 11pm tonight bland diet. Nausea - worse with fatty foods, recommended low fat/bland diet, call if symptoms worsening. 11/10/2011 Appointment: Melba Goldman WPtel: [facility] Other 11/10/2011 Patient Education: Patient Medication Summary [...] stools. 08/01/2011 Appointment: [facility] Goldman [facility]el: [phone] [facility] [place] Other 08/01/2011 Patient Education: Patient Medication Summary Completed 08/01/2011 Patient Education: High Blood Pressure: Essential Hypertension Completed 08/01/2011 Visit Plan: Sinusitis - Pt has acute infection - pain in face, maxillary region, Pt informed to use decongestant, RX given to patient, sinus rinses also recommended. Call if symptoms do not show improvement. Cough- tessalsathish stollles 07/14/2011 Appointment: Shahida Manzo [facility]Ptel[facility] [phone] [phone] [place] Other 07/14/2011 Patient Education: Patient [...] vaccine today in the office. 05/23/2011 Appointment: Lyle Manzoie WPtel: [facility]4 [facility] [place] [address] Other 05/23/2011 Patient Education: Patient Medication Summary [...] cough med 05/03/2011 Appointment: Jovany Shahida WPtel: [facility]2 [phone] Other 05/03/2011 Patient Education: Patient Medication [...] her symptoms. 04/25/2011 Appointment: Shahida Manzo WPtel: [address] [place], [place] [phone] Other 04/25/2011 Patient Education: Patient Medication Summary [...] this patient. ADD ABILIFY 2MG AT BEDTIME TAPER OFF OF CYMBALTA-TAKE EVERY OTHER DAY [...] this patient. [facility] [...] if the symptoms are not improving. . Arthritis- occasionally uncontrolled symptoms- recommend pt [...] areas dry Exposure to scabies-RX sent to [facility]. rocephin/kenalog . Sinusitis - [...] spray in the nasal steroid allergy spray. Edarbi 40mg daily Labs now EKG . [...] daily-dose given in the office today . Skin tear of left and right [...] Sleep apnea-patient needs new CPAP-will contact [facility] patient . URI - Pt advised to increase [...] Sleep apnea-patient needs new CPAP-will contact ivorian [facility] patient Pt reports that she uses her CPAP and feels like she gets benefit from use of her CPAP with improved energy. . Abrasion right leg-RX for keflex Headache-much [...] change in blood pressure readings at home. Xekeugw-legmtwadrde-zpqufznw duragesic patch-appt with Dr Ortiz for pain [...] formulate the plan with the nurse practicioner. TRAZODONE REPLACES THE AMBIEN - START WITH [...] show improvement. Dysuria-culture urine . Hypertension - fairlywell controlled - due [...]
--- OUTSIDE RECORDS SUMMARY | 2019-03-08 18:44 | XMS REPORT | CCD ---
Author Author [facility] Address [address] [place] [address] Phone Care Team Providers Care Licensing Analyst Name Role Phone PP Unavailable CCM Unavailable Summary Purpose Interface Exchange Insurance Providers Payer name Policy type / Coverage type Covered republican ID Effective Begin Date Effective End Date [employer] Medicare Part B [id number] Unknown Family history Son Diagnosis Age At Onset Crohn's disease Unknown Brother Diagnosis Age At Onset Cardiovascular disease Unknown Mother Diagnosis Age At Onset Hypertension Unknown Father Diagnosis Age At Onset Cardiovascular disease Unknown Social History Social History Element Codes Description Effective Dates Marital status Unknown 04/22/2011 Number of children Unknown 3 1 son -Crohns 04/22/[address]: 139263258 Nonsmoker 04/22/2011 Allergies, Adverse Reactions, Alerts Allergies, [...] Fill Instructions Flagyl 500 mg tablet RxNorm: 744059 1 Tablet(s) PO TID 09/12/2017 09/21/2017 Active promethazine 25 mg tablet RxNorm: 541925 1 Tablet(s) PO TID as needed nausea and vomitting THIS WILL MAKE YOU SLEEPY 09/12/2017 No Stop Date Active Keflex 500 mg capsule RxNorm: 705968 1 Capsule(s) PO QID 08/25/2017 08/31/2017 Inactive [SAVINGS FOR UNINSURED PATIENTS -- BIN:[id number], PCN: ASPROD1, Group: [id number], ID# [id number], Process claim through [employer], for questions: . THIS IS NOT INSURANCE.] alprazolam 0.25 mg tablet RxNorm: 966662 1 Tablet(s) PO daily as needed 07/31/2017 10/28/2017 Active prednisone 20 mg tablet RxNorm: 221318 2 Tablet(s) PO daily 07/25/2017 07/29/2017 Inactive Augmentin 500 mg-125 mg tablet RxNorm: 520918 1 Tablet(s) PO TID 07/25/2017 08/03/2017 Inactive trazodone 50 mg tablet RxNorm: 678405 TAKE ONE AND ONE-HALF (1 1/2) TABLET BY MOUTH AT BEDTIME. MAY INCREASE TO 2 TABLETS AT BEDTIME NEEDED 06/30/2017 09/03/2017 Inactive Bystolic 10 mg tablet RxNorm: 047085 TAKE ONE TABLET BY MOUTH DAILY 06/30/2017 2017 Active hydrochlorothiazide 25 mg tablet RxNorm: 436790 TAKE ONE TABLET BY MOUTH DAILY 06/30/2017 03/26/2018 Active Phenergan with Codeine Syrup RxNorm: 5-10 Milliliter(s) PO Q6 PRN 06/27/2017 No Stop Date Active Flagyl 500 mg tablet RxNorm: 763367 1 Tablet(s) PO TID 06/27/2017 07/03/2017 Inactive Levaquin 500 mg tablet RxNorm: 325493 1 Tablet(s) PO daily 06/27/2017 07/03/2017 Inactive Kenalog 40 mg/mL suspension for injection RxNorm: 1518330 1 Milliliter(s) Inj 06/27/2017 06/27/2017 Inactive Nexium 40 mg capsule,delayed release RxNorm: 706491 1 Capsule(s) PO BID TAKE ONE CAPSULE BY MOUTH BID 05/22/2017 09/18/2017 Active Nexium 40 mg capsule,delayed release RxNorm: 421795 1 Capsule(s) PO BID TAKE ONE CAPSULE BY MOUTH BID 05/22/2017 05/21/2017 Inactive hydrocodone 10 mg-acetaminophen 325 mg tablet RxNorm: 874428 Tablet(s) PO TAKE ONE TO TWO TABLETS BY MOUTH EVERY 6 HOURS NEEDED FOR PAIN 05/17/2017 06/15/2017 Inactive Nexium 40 mg capsule,delayed release RxNorm: 269649 Capsule(s) TAKE ONE CAPSULE BY MOUTH BID 05/17/2017 05/21/2017 Inactive alprazolam 0.25 mg tablet RxNorm: 651559 1 Tablet(s) PO daily as needed 05/03/2017 07/01/2017 Inactive clotrimazole 1 % topical cream RxNorm: 526462 1 Application TOP BID 04/20/2017 07/18/2017 Inactive Levaquin 500 mg tablet RxNorm: 483909 1 Tablet(s) PO daily 04/20/2017 04/26/2017 Inactive Kenalog 40 mg/mL suspension for injection RxNorm: 2900177 Milliliter(s) Inj 04/20/2017 04/20/2017 Inactive nystatin 100,000 unit/gram topical powder RxNorm: 351068 1 Gram(s) APPLY TOPICALLY TWO TIMES A DAY 04/10/2017 07/08/2017 Inactive trazodone 50 mg tablet RxNorm: 101863 TAKE ONE AND ONE-HALF (1 1/2) TABLET BY MOUTH AT BEDTIME. MAY INCREASE TO 2 TABLETS AT BEDTIME NEEDED 03/28/2017 06/23/2017 Inactive Augmentin 875 mg-125 mg tablet RxNorm: 201123 1 Tablet(s) PO BID 03/14/2017 03/20/2017 Inactive Kenalog 40 mg/mL suspension for injection RxNorm: 2660819 1 Milliliter(s) Inj 03/14/2017 03/14/2017 Inactive Lexapro 20 mg tablet RxNorm: 241252 1.5 Tablet(s) PO daily 03/08/2017 07/05/2017 Inactive Lexapro 20 mg tablet RxNorm: 050548 1.5 Tablet(s) PO daily 03/08/2017 03/07/2017 Inactive alprazolam 0.25 mg tablet RxNorm: 261232 1 Tablet(s) PO daily as needed 02/23/2017 04/23/2017 Inactive (Response to an electronic controlled substance refill request - RxReferenceNumber: [id number]) Flagyl 500 mg tablet RxNorm: 916579 1 Tablet(s) PO TID 02/20/2017 03/01/2017 Inactive promethazine 25 mg tablet RxNorm: 986616 1 Tablet(s) PO TID as needed nausea 02/20/2017 03/01/2017 Inactive Cipro 500 mg tablet RxNorm: 655288 1 Tablet(s) PO BID 02/20/2017 03/01/2017 Inactive Flagyl 500 mg tablet RxNorm: 710138 1 Tablet(s) PO TID 02/09/2017 02/15/2017 Inactive Trintellix 10 mg tablet RxNorm: 0112048 1 Tablet(s) PO QAM 02/06/2017 03/07/2017 Inactive Efudex 5 % topical cream RxNorm: 734728 1 Application TOP BID use on skin spot on nose 02/06/2017 02/15/2017 Inactive Bystolic 10 mg tablet RxNorm: 013076 TAKE ONE TABLET BY MOUTH DAILY 02/03/2017 06/02/2017 Inactive Imitrex 50 mg tablet RxNorm: 402892 TAKE ONE TABLET BY MOUTH EVERY 8 HOURS NEEDED MAY REPEAT IN 1 HOUR OF INITIAL DOSE. DISCONTINUE FIORICET 12/22/2016 02/19/2017 Inactive Nexium 40 mg capsule,delayed release RxNorm: 408453 TAKE ONE CAPSULE BY MOUTH EVERY DAY 12/21/2016 05/16/2017 Inactive Lexapro 20 mg tablet RxNorm: 875138 Tablet(s) TAKE ONE TABLET BY MOUTH DAILY 12/05/2016 02/05/2017 Inactive Augmentin 875 mg-125 mg tablet RxNorm: 126500 1 Tablet(s) PO BID 11/28/2016 12/04/2016 Inactive ceftriaxone 500 mg solution for injection RxNorm: 2093121 1 Milliliter(s) Inj 11/28/2016 11/28/2016 Inactive hydrocodone 10 mg-acetaminophen 325 mg tablet RxNorm: 991302 Tablet(s) PO TAKE ONE TO TWO TABLETS BY MOUTH EVERY 6 HOURS NEEDED FOR PAIN 11/28/2016 05/16/2017 Inactive (Appended: Controlled substance eRx refill - RxReferenceNumber: [id number]) prednisone 20 mg tablet RxNorm: 600845 2 Tablet(s) PO daily 11/28/2016 12/02/2016 Inactive Synthroid 100 mcg tablet RxNorm: 571504 1 Tablet(s) PO daily 11/21/2016 05/19/2017 Inactive Brand name only! trazodone 50 mg tablet RxNorm: 953656 TAKE 1 AND 1/2 TABLETS EVERY NIGHT AT BEDTIME , MAY INCREASE TO 2 TABLETS AT BEDTIME NEEDED 11/21/2016 02/16/2017 Inactive trazodone 50 mg tablet RxNorm: 744401 Tablet(s) TAKE 1 AND 1/2 TABLETS EVERY NIGHT AT BEDTIME , MAY INCREASE TO 2 TABLETS AT BEDTIME NEEDED 11/21/2016 11/20/2016 Inactive Synthroid 100 mcg tablet RxNorm: 032461 1 Tablet(s) PO daily TAKE ONE TABLET BY MOUTH DAILY 11/08/2016 11/20/2016 Inactive ceftriaxone 500 mg solution for injection RxNorm: 4228146 Inj 11/07/2016 11/07/2016 Inactive Kenalog 40 mg/mL suspension for injection RxNorm: 0768945 Milliliter(s) Inj 11/07/2016 11/07/2016 Inactive Xanax 0.25 mg tablet RxNorm: 083778 1 Tablet(s) PO daily as needed 10/31/2016 05/02/2017 Inactive alprazolam 0.25 mg tablet RxNorm: 465196 1 Tablet(s) PO daily as needed 10/21/2016 12/18/2016 Inactive (Response to an electronic controlled substance refill request - RxReferenceNumber: [id number]) hydrochlorothiazide 25 mg tablet RxNorm: 703066 TAKE ONE TABLET BY MOUTH DAILY 10/11/2016 04/08/2017 Inactive Xanax 0.25 mg tablet RxNorm: 192332 1 Tablet(s) PO daily as needed 08/23/2016 10/19/2016 Inactive Flonase Allergy Relief 50 mcg/actuation nasal spray,suspension RxNorm: 9323703 1 [place] NASAL daily 08/15/2016 No Stop Date Active amoxicillin 500 mg capsule RxNorm: 378501 1 Capsule(s) PO TID 08/15/2016 08/24/2016 Inactive Bystolic 10 mg tablet RxNorm: 990692 TAKE ONE TABLET BY MOUTH DAILY 08/01/2016 12/28/2016 Inactive trazodone 50 mg tablet RxNorm: 872698 TAKE 1 AND 1/2 TABLETS EVERY NIGHT AT BEDTIME , MAY INCREASE TO 2 TABLETS AT BEDTIME NEEDED 07/25/2016 11/11/2016 Inactive alprazolam 0.25 mg tablet RxNorm: 852019 1 Tablet(s) PO daily as needed 07/25/2016 08/22/2016 Inactive (Response to an electronic controlled substance refill request - RxReferenceNumber: [id number]) Imitrex 50 mg tablet RxNorm: 174529 1 Tablet(s) PO Q8 as needed may repeat x1 dose in 1 hour of inital dose. 07/13/2016 No Stop Date Active Lexapro 20 mg tablet RxNorm: 468030 TAKE 1/2 TABLET BY MOUTH DAILY FOR 10 DAYS, THEN TAKE ONE TABLET BY MOUTH DAILY 06/27/2016 11/23/2016 Inactive Synthroid 100 mcg tablet RxNorm: 150816 TAKE ONE TABLET BY MOUTH DAILY 06/20/2016 11/07/2016 Inactive Augmentin 500 mg-125 mg tablet RxNorm: 967608 1 Tablet(s) PO TID 06/07/2016 06/13/2016 Inactive hydrocodone 10 mg-acetaminophen 325 mg tablet RxNorm: 626855 Tablet(s) PO TAKE ONE TO TWO TABLETS BY MOUTH EVERY 6 HOURS NEEDED FOR PAIN 06/07/2016 11/27/2016 Inactive (Appended: Controlled substance eRx refill - RxReferenceNumber: [id number]) hydrochlorothiazide 25 mg tablet RxNorm: 816163 TAKE ONE TABLET BY MOUTH DAILY 03/14/2016 09/09/2016 Inactive Edarbi 40 mg tablet RxNorm: 4925445 1 Tablet(s) PO daily 03/14/2016 06/06/2016 Inactive trazodone 50 mg tablet RxNorm: 196778 Tablet(s) TAKE 1 AND 1/2 TABLET AT BEDTIME. MAY INCREASE TO 2 TABLETS IF NECESSARY 02/25/2016 07/05/2016 Inactive Imitrex 50 mg tablet RxNorm: 853793 1 Tablet(s) PO Q8 as needed may repeat x1 dose in 1 hour of inital dose. 02/25/2016 07/12/2016 Inactive dc fioricet Xanax 0.25 mg tablet RxNorm: 508003 1 Tablet(s) PO daily as needed 02/24/2016 07/21/2016 Inactive mupirocin 2 % topical ointment RxNorm: 931381 1 TOP BID 02/22/2016 No Stop Date Active Bactrim DS 800 mg-160 mg tablet RxNorm: 458088 1 Tablet(s) PO BID 02/22/2016 03/02/2016 Inactive Fioricet 50 mg-325 mg-40 mg tablet RxNorm: 929003 Tablet(s) TAKE ONE TABLET BY MOUTH EVERY 4 HOURS NEEDED FOR headache 02/12/2016 02/24/2016 Inactive (Response to an electronic controlled substance refill request - RxReferenceNumber: [id number]) Fioricet 50 mg-325 mg-40 mg tablet RxNorm: 537587 Tablet(s) TAKE ONE TABLET BY MOUTH EVERY 4 HOURS NEEDED FOR headache 02/12/2016 02/11/2016 Inactive (Response to an electronic controlled substance refill request - RxReferenceNumber: [id number]) Nexium 40 mg capsule,delayed release RxNorm: 510347 TAKE ONE CAPSULE BY MOUTH EVERY DAY 02/01/2016 10/27/2016 Inactive Bystolic 10 mg tablet RxNorm: 756626 Tablet(s) TAKE ONE TABLET BY MOUTH DAILY 01/06/2016 07/03/2016 Inactive Xanax 0.25 mg tablet RxNorm: 194801 1 Tablet(s) PO daily as needed 12/28/2015 02/23/2016 Inactive Levaquin 500 mg tablet RxNorm: 693231 1 Tablet(s) PO daily take a probiotic daily 12/14/2015 02/11/2016 Inactive Levaquin 500 mg tablet RxNorm: 803846 1 Tablet(s) PO daily take a probiotic daily 12/14/2015 12/13/2015 Inactive prednisone 20 mg tablet RxNorm: 988072 1 Tablet(s) PO BID 12/07/2015 12/13/2015 Inactive Augmentin 875 mg-125 mg tablet RxNorm: 261662 1 Tablet(s) PO BID 12/07/2015 12/13/2015 Inactive ceftriaxone 500 mg solution for injection RxNorm: 4368001 Inj 12/07/2015 12/07/2015 Inactive Phenergan with Codeine Syrup RxNorm: 5-10 Milliliter(s) PO Q6 PRN 12/07/2015 06/26/2017 Inactive alprazolam 0.25 mg tablet RxNorm: 093189 1 Tablet(s) PO daily as needed 11/27/2015 12/25/2015 Inactive (Response to an electronic controlled substance refill request - RxReferenceNumber: [id number]) trazodone 50 mg tablet RxNorm: 234060 TAKE 1 AND 1/2 TABLET AT BEDTIME FOR 2 WEEKS, MAY INCREASE TO 2 TABLETS IF NECESSARY AFTER THAT 11/26/2015 02/24/2016 Inactive ceftriaxone 500 mg solution for injection RxNorm: 2270989 Milliliter(s) Inj 11/24/2015 11/24/2015 Inactive prednisone 10 mg tablet RxNorm: 887503 3 Tablet(s) PO daily 11/24/2015 11/28/2015 Inactive cefdinir 300 mg capsule RxNorm: 385222 1 Capsule(s) PO BID 11/24/2015 11/30/2015 Inactive Kenalog 40 mg/mL suspension for injection RxNorm: 1895507 1 Milliliter(s) Inj 11/24/2015 11/24/2015 Inactive Lexapro 20 mg tablet RxNorm: 162640 TAKE 1/2 TABLET BY MOUTH DAILY FOR 10 DAYS, THEN TAKE ONE TABLET BY MOUTH DAILY 11/23/2015 05/20/2016 Inactive Norvasc 10 mg tablet RxNorm: 353870 Tablet(s) PO TAKE ONE TABLET BY MOUTH EVERY DAY 10/26/2015 02/22/2016 Inactive Lipitor 10 mg tablet RxNorm: 342245 Tablet(s) TAKE ONE TABLET BY MOUTH EVERY DAY 10/26/2015 11/06/2016 Inactive hydrochlorothiazide 25 mg tablet RxNorm: 994429 TAKE ONE TABLET BY MOUTH DAILY 10/20/2015 01/17/2016 Inactive alprazolam 0.25 mg tablet RxNorm: 092645 1 Tablet(s) PO daily as needed 08/27/2015 11/22/2015 Inactive (Response to an electronic controlled substance refill request - RxReferenceNumber: [id number]) promethazine 25 mg/mL injection solution RxNorm: 891028 Milliliter(s) Inj 08/27/2015 08/27/2015 Inactive ketorolac 60 mg/2 mL intramuscular solution RxNorm: 670790 Milliliter(s) IM 08/27/2015 08/27/2015 Inactive Lexapro 20 mg tablet RxNorm: 644893 TAKE 1/2 TABLET BY MOUTH DAILY FOR 10 DAYS, THEN TAKE ONE TABLET BY MOUTH DAILY 08/13/2015 11/10/2015 Inactive Flonase 50 mcg/actuation nasal spray,suspension RxNorm: 250974 PLACE 1 SPRAY IN EACH NOSTRIL DAILY 08/13/2015 02/08/2016 Inactive Augmentin 500 mg-125 mg tablet RxNorm: 839565 1 Tablet(s) PO TID 08/10/2015 08/16/2015 Inactive Kenalog 40 mg/mL suspension for injection RxNorm: 7388022 Milliliter(s) Inj 08/10/2015 08/10/2015 Inactive ceftriaxone 500 mg solution for injection RxNorm: 2480845 Inj 08/10/2015 08/10/2015 Inactive nystatin 100,000 unit/mL oral suspension RxNorm: 610677 4 Milliliter(s) PO QID 08/10/2015 08/16/2015 Inactive trazodone 50 mg tablet RxNorm: 927985 TAKE 1 AND 1/2 TABLET AT BEDTIME FOR 2 WEEKS, MAY INCREASE TO 2 TABLETS IF NECESSARY AFTER THAT 07/31/2015 11/25/2015 Inactive ceftriaxone 500 mg solution for injection RxNorm: 3459543 1 Milliliter(s) Inj 07/28/2015 07/28/2015 Inactive Bactrim DS 800 mg-160 mg tablet RxNorm: 633610 1 Tablet(s) PO BID 07/28/2015 08/06/2015 Inactive Bactroban 2 % topical ointment RxNorm: 053208 1 Application TOP BID 07/28/2015 08/06/2015 Inactive Diflucan 150 mg tablet RxNorm: 078208 1 Tablet(s) PO daily 06/11/2015 06/17/2015 Inactive clotrimazole 1 % topical cream RxNorm: 617221 1 Application TOP BID 06/11/2015 07/10/2015 Inactive Bystolic 10 mg tablet RxNorm: 150737 TAKE ONE TABLET BY MOUTH DAILY 06/08/2015 12/04/2015 Inactive alprazolam 0.25 mg tablet RxNorm: 291503 1 Tablet(s) PO daily as needed 06/01/2015 08/25/2015 Inactive (Response to an electronic controlled substance refill request - RxReferenceNumber: [id number]) Fioricet 50 mg-325 mg-40 mg tablet RxNorm: 426992 Tablet(s) TAKE ONE TABLET BY MOUTH EVERY 4 HOURS NEEDED FOR headache 05/28/2015 06/08/2015 Inactive (Response to an electronic controlled substance refill request - RxReferenceNumber: [id number]) trazodone 50 mg tablet RxNorm: 535310 TAKE 1 AND 1/2 TABLET AT BEDTIME FOR 2 WEEKS, MAY INCREASE TO 2 TABLETS IF NECESSARY AFTER THAT 05/25/2015 08/22/2015 Inactive trazodone 50 mg tablet RxNorm: 592087 TAKE 1 AND 1/2 TABLET AT BEDTIME FOR 2 WEEKS, MAY INCREASE TO 2 TABLETS IF NECESSARY AFTER THAT 05/25/2015 05/24/2015 Inactive Synthroid 100 mcg tablet RxNorm: 695499 TAKE ONE TABLET BY MOUTH DAILY 04/23/2015 01/17/2016 Inactive Lipitor 10 mg tablet RxNorm: 849702 TAKE ONE TABLET BY MOUTH EVERY DAY 04/23/2015 10/25/2015 Inactive Kenalog 40 mg/mL suspension for injection RxNorm: 1377190 Milliliter(s) Inj 03/19/2015 03/19/2015 Inactive Lexapro 20 mg tablet RxNorm: 883061 1 Tablet(s) PO daily 03/19/2015 07/16/2015 Inactive 1/2 tab daily x 10 days then 1 tab daily hydrocodone 10 mg-acetaminophen 325 mg tablet RxNorm: 240705 Tablet(s) PO TAKE ONE TO TWO TABLETS BY MOUTH EVERY 6 HOURS NEEDED FOR PAIN 03/19/2015 06/06/2016 Inactive (Appended: Controlled substance eRx refill - RxReferenceNumber: [id number]) Carafate 1 gram tablet RxNorm: 986164 1 Tablet(s) PO AC & HS 03/19/2015 06/16/2015 Inactive dissolve in water and take as a slurry hydrochlorothiazide 25 mg tablet RxNorm: 775812 1 Tablet(s) PO daily 03/12/2015 09/07/2015 Inactive Nexium 40 mg capsule,delayed release RxNorm: 572241 TAKE ONE CAPSULE BY MOUTH EVERY DAY 02/26/2015 12/22/2015 Inactive Cymbalta 60 mg capsule,delayed release RxNorm: 570052 TAKE ONE CAPSULE BY MOUTH TWICE A DAY 02/23/2015 03/18/2015 Inactive alprazolam 0.25 mg tablet RxNorm: 903738 1 Tablet(s) PO daily as needed 02/11/2015 05/10/2015 Inactive (Response to an electronic controlled substance refill request - RxReferenceNumber: [id number]) trazodone 50 mg tablet RxNorm: 768890 TAKE 1 AND 1/2 TABLET AT BEDTIME FOR 2 WEEKS, MAY INCREASE TO 2 TABLETS IF NECESSARY AFTER THAT 01/27/2015 05/24/2015 Inactive Augmentin 500 mg-125 mg tablet RxNorm: 636141 1 Tablet(s) PO TID 01/07/2015 01/13/2015 Inactive gentamicin 0.3 % eye drops RxNorm: 382018 3 Drop(s) OPH QID 01/07/2015 01/13/2015 Inactive [AttnRPh: Saving apply/adjudicate RxGRP:[id number] RxBIN:[id number] RxPCN: ID#:[id number]] scopolamine 1.5 mg transdermal 72 hour patch RxNorm: 111215 1 Patch TD q72 hours 01/07/2015 11/23/2015 Inactive Synthroid 100 mcg tablet RxNorm: 370246 TAKE ONE TABLET BY MOUTH ONCE A DAY 01/06/2015 04/22/2015 Inactive nystatin 100,000 unit/gram topical powder RxNorm: 432117 APPLY TOPICALLY TWO TIMES A DAY 12/18/2014 03/17/2015 Inactive alprazolam 0.25 mg tablet RxNorm: 596679 TAKE ONE TABLET BY MOUTH DAILY NEEDED 10/30/2014 11/28/2014 Inactive (Response to an electronic controlled substance refill request - RxReferenceNumber: [id number]) alprazolam 0.25 mg tablet RxNorm: 599389 Tablet(s) TAKE ONE TABLET BY MOUTH DAILY 10/30/2014 10/29/2014 Inactive (Response to an electronic controlled substance refill request - RxReferenceNumber: [id number]) Lipitor 10 mg tablet RxNorm: 608343 TAKE ONE TABLET BY MOUTH EVERY DAY 10/30/2014 02/26/2015 Inactive alprazolam 0.25 mg tablet RxNorm: 013007 TAKE ONE TABLET BY MOUTH DAILY 10/07/2014 10/29/2014 Inactive (Response to an electronic controlled substance refill request - RxReferenceNumber: [id number]) alprazolam 0.25 mg tablet RxNorm: 218227 TAKE ONE TABLET BY MOUTH DAILY 10/06/2014 10/07/2014 Inactive (Response to an electronic controlled substance refill request - RxReferenceNumber: [id number]) alprazolam 0.25 mg tablet RxNorm: 730638 Tablet(s) TAKE ONE TABLET BY MOUTH EVERY DAY NEEDED 09/30/2014 10/06/2014 Inactive (Response to an electronic controlled substance refill request - RxReferenceNumber: [id number]) Fioricet 50 mg-325 mg-40 mg tablet RxNorm: 364924 Tablet(s) TAKE ONE TABLET BY MOUTH EVERY 4 HOURS NEEDED FOR headache 09/29/2014 10/12/2014 Inactive (Response to an electronic controlled substance refill request - RxReferenceNumber: [id number]) Bystolic 10 mg tablet RxNorm: 802250 1 Tablet(s) PO daily TAKE ONE TABLET BY MOUTH EVERY DAY 09/29/2014 04/26/2015 Inactive Bystolic 5 mg tablet RxNorm: 207933 TAKE 1 AND 1/2 TABLETS ONCE DAILY 09/24/2014 09/23/2014 Inactive Bystolic 5 mg tablet RxNorm: 469547 Tablet(s) TAKE 1 AND 1/2 TABLETS ONCE DAILY 09/24/2014 09/18/2015 Inactive gentamicin 0.3 % eye drops RxNorm: 994934 3 Drop(s) OPH QID 09/23/2014 09/29/2014 Inactive trazodone 50 mg tablet RxNorm: 416726 TAKE 1 AND 1/2 TABLET AT BEDTIME FOR 2 WEEKS, MAY INCREASE TO 2 TABLETS IF NECESSARY AFTER THAT 09/22/2014 01/26/2015 Inactive Fioricet 50 mg-325 mg-40 mg tablet RxNorm: 840183 TAKE ONE TABLET BY MOUTH EVERY 4 HOURS NEEDED FOR PAIN 09/17/2014 09/28/2014 Inactive (Response to an electronic controlled substance refill request - RxReferenceNumber: [id number]) Duragesic 50 mcg/hr transdermal patch RxNorm: 523395 1 TD q72 hours 08/07/2014 01/06/2015 Inactive [SAVINGS FOR UNINSURED PATIENTS -- BIN:[id number], PCN: ASPROD1, Group: [id number], ID# [id number], Process claim through [employer], for questions: . THIS IS NOT INSURANCE.] alprazolam 0.25 mg tablet RxNorm: 763152 TAKE ONE TABLET BY MOUTH EVERY DAY NEEDED 07/31/2014 08/29/2014 Inactive (Response to an electronic controlled substance refill request - RxReferenceNumber: [id number]) alprazolam 0.25 mg tablet RxNorm: 533093 1 Tablet(s) PO daily as needed TAKE ONE TABLET BY MOUTH EVERY DAY NEEDED 07/30/2014 08/01/2014 Inactive (Response to an electronic controlled substance refill request - RxReferenceNumber: [id number]) Diflucan 150 mg tablet RxNorm: 910541 1 Tablet(s) PO daily 06/25/2014 07/01/2014 Inactive [SAVINGS FOR UNINSURED PATIENTS -- BIN:153273, PCN: ASPROD1, Group: [id number], ID# [id number], Process claim through [employer], for questions: . THIS IS NOT INSURANCE.] Kenalog 40 mg/mL suspension for injection RxNorm: 3686159 Milliliter(s) Inj 06/23/2014 06/23/2014 Inactive [SAVINGS FOR UNINSURED PATIENTS -- BIN:883036, PCN: ASPROD1, Group: [id number], ID# [id number], Process claim through [employer], for questions: . THIS IS NOT INSURANCE.] ceftriaxone 500 mg solution for injection RxNorm: 890987 Inj 06/23/2014 06/23/2014 Inactive [SAVINGS FOR UNINSURED PATIENTS -- BIN:269181, PCN: ASPROD1, Group: [id number], ID# [id number], Process claim through [employer], for questions: . THIS IS NOT INSURANCE.] Levaquin 500 mg tablet RxNorm: 429674 1 Tablet(s) PO daily 06/23/2014 07/13/2014 Inactive [SAVINGS FOR UNINSURED PATIENTS -- BIN:942391, PCN: ASPROD1, Group: [id number], ID# [id number], Process claim through [employer], for questions: . THIS IS NOT INSURANCE.] Duragesic 50 mcg/hr transdermal patch RxNorm: 992360 1 TD q72 hours 06/05/2014 08/06/2014 Inactive [SAVINGS FOR UNINSURED PATIENTS -- BIN:972167, PCN: ASPROD1, Group: TAB, ID# [id number], Process claim through [employer], for questions: . THIS IS NOT INSURANCE.] alprazolam 0.25 mg tablet RxNorm: 269073 1 Tablet(s) PO daily as needed TAKE ONE TABLET BY MOUTH EVERY DAY NEEDED 06/02/2014 07/29/2014 Inactive (Response to an electronic controlled substance refill request - RxReferenceNumber: [id number]) nystatin 100,000 unit/gram topical powder RxNorm: 020800 APPLY TO AFFECTED AREA(S) TWO TIMES A DAY 05/01/2014 06/14/2014 Inactive hydrochlorothiazide 25 mg tablet RxNorm: 729699 TAKE ONE TABLET BY MOUTH EVERY DAY MUST CALL MD FOR APPOINTMENT 04/24/2014 10/20/2014 Inactive alprazolam 0.25 mg tablet RxNorm: 567708 Tablet(s) TAKE ONE TABLET BY MOUTH EVERY DAY NEEDED 04/16/2014 06/02/2014 Inactive (Response to an electronic controlled substance refill request - RxReferenceNumber: [id number]) alprazolam 0.25 mg tablet RxNorm: 799616 TAKE ONE TABLET BY MOUTH EVERY DAY NEEDED 04/16/2014 05/15/2014 Inactive (Response to an electronic controlled substance refill request - RxReferenceNumber: [id number]) alprazolam 0.25 mg tablet RxNorm: 023551 TAKE ONE TABLET BY MOUTH EVERY DAY NEEDED 04/16/2014 05/15/2014 Inactive (Response to an electronic controlled substance refill request - RxReferenceNumber: [id number]) alprazolam 0.25 mg tablet RxNorm: 616136 TAKE ONE TABLET BY MOUTH EVERY DAY NEEDED 04/14/2014 04/16/2014 Inactive (Response to an electronic controlled substance refill request - RxReferenceNumber: [id number]) Lipitor 10 mg tablet RxNorm: 986249 TAKE ONE TABLET BY MOUTH EVERY DAY 04/14/2014 09/10/2014 Inactive alprazolam 0.25 mg tablet RxNorm: 954973 TAKE ONE TABLET BY MOUTH EVERY DAY NEEDED 04/14/2014 04/14/2014 Inactive (Response to an electronic controlled substance refill request - RxReferenceNumber: [id number]) alprazolam 0.25 mg tablet RxNorm: 094292 TAKE ONE TABLET BY MOUTH EVERY DAY NEEDED 04/14/2014 04/15/2014 Inactive (Response to an electronic controlled substance refill request - RxReferenceNumber: [id number]) alprazolam 0.25 mg tablet RxNorm: 886175 TAKE ONE TABLET BY MOUTH EVERY DAY NEEDED 04/14/2014 04/14/2014 Inactive (Response to an electronic controlled substance refill request - RxReferenceNumber: [id number]) nystatin 100,000 unit/gram topical powder RxNorm: 304657 1 Application TOP BID 04/03/2014 07/01/2014 Inactive [SAVINGS FOR UNINSURED PATIENTS -- BIN:719162, PCN: ASPROD1, Group: [id number], ID# [id number], Process claim through [employer], for questions: . THIS IS NOT INSURANCE.] Keflex 500 mg capsule RxNorm: 279476 1 Capsule(s) PO QID 04/03/2014 04/09/2014 Inactive [SAVINGS FOR UNINSURED PATIENTS -- BIN:435853, PCN: ASPROD1, Group: [id number], ID# [id number], Process claim through [employer], for questions: . THIS IS NOT INSURANCE.] Synthroid 100 mcg tablet RxNorm: 840919 1 Tablet(s) PO daily TAKE ONE TABLET BY MOUTH EVERY DAY 04/01/2014 01/05/2015 Inactive [SAVINGS FOR UNINSURED PATIENTS -- BIN:173895, PCN: ASPROD1, Group: [id number], ID# [id number], Process claim through [employer], for questions: . THIS IS NOT INSURANCE.] Duragesic 50 mcg/hr transdermal patch RxNorm: 591730 1 TD q72 hours 03/24/2014 06/04/2014 Inactive [SAVINGS FOR UNINSURED PATIENTS -- BIN:[id number], PCN: ASPROD1, Group: [id number], ID# [id number], Process claim through MedImp[employer], for questions: . THIS IS NOT INSURANCE.] trazodone 50 mg tablet RxNorm: 063945 TAKE 1 AND 1/2 TABLET AT BEDTIME FOR 2 WEEKS, MAY INCREASE TO 2 TABLETS IF NECESSARY AFTER THAT 03/18/2014 09/13/2014 Inactive nystatin 100,000 unit/gram topical powder RxNorm: 000147 1 Application TOP BID 03/07/2014 03/16/2014 Inactive [SAVINGS FOR UNINSURED PATIENTS -- BIN:[id number], PCN: ASPROD1, Group: [id number], ID# [id number], Process claim through MedImp[employer], for questions: . THIS IS NOT INSURANCE.] permethrin 5 % topical cream RxNorm: 654242 1 Application TOP daily 03/07/2014 11/23/2015 Inactive apply head to toe-leave on overnight and wash off in the a.m. May repeat x 1 if needed Diflucan 150 mg tablet RxNorm: 216255 1 Tablet(s) PO daily 03/07/2014 03/09/2014 Inactive [SAVINGS FOR UNINSURED PATIENTS -- BIN:700915, PCN: ASPROD1, Group: [id number], ID# [id number], Process claim through [employer]Imp[employer], for questions: . THIS IS NOT INSURANCE.] hydrochlorothiazide 25 mg tablet RxNorm: 090857 TAKE ONE TABLET BY MOUTH EVERY DAY MUST CALL MD FOR APPOINTMENT 03/06/2014 04/23/2014 Inactive Zithromax Z-Sergio 250 mg tablet RxNorm: 011023 Tablet(s) PO as directed 03/04/2014 11/23/2015 Inactive [SAVINGS FOR UNINSURED PATIENTS -- BIN:826831, PCN: ASPROD1, Group: [id number], ID# [id number], Process claim through [employer]Imp[employer], for questions: . THIS IS NOT INSURANCE.] Flonase 50 mcg/actuation nasal spray,suspension RxNorm: 177462 1 [place] NASAL daily 03/04/2014 07/01/2014 Inactive [SAVINGS FOR UNINSURED PATIENTS -- BIN:821083, PCN: ASPROD1, Group: [id number], ID# [id number], Process claim through [employer]Imp[employer], for questions: . THIS IS NOT INSURANCE.] alprazolam 0.25 mg tablet RxNorm: 756128 1 Tablet(s) PO PRN TAKE ONE TABLET BY MOUTH EVERY DAY NEEDED 02/25/2014 04/14/2014 Inactive (Appended: Controlled substance eRx refill - RxReferenceNumber: [id number]) alprazolam 0.25 mg tablet RxNorm: 757781 TAKE ONE TABLET BY MOUTH EVERY DAY NEEDED 02/21/2014 03/22/2014 Inactive (Response to an electronic controlled substance refill request - RxReferenceNumber: [id number]) alprazolam 0.25 mg tablet RxNorm: 588829 TAKE ONE TABLET BY MOUTH EVERY DAY NEEDED 02/21/2014 03/22/2014 Inactive (Response to an electronic controlled substance refill request - RxReferenceNumber: [id number]) alprazolam 0.25 mg tablet RxNorm: 089426 TAKE ONE TABLET BY MOUTH EVERY DAY NEEDED 02/18/2014 03/19/2014 Inactive (Response to an electronic controlled substance refill request - RxReferenceNumber: [id number]) Cymbalta 60 mg capsule,delayed release RxNorm: 730739 TAKE ONE CAPSULE BY MOUTH TWICE A DAY 02/18/2014 01/13/2015 Inactive Nexium 40 mg capsule,delayed release RxNorm: 198498 TAKE ONE CAPSULE BY MOUTH EVERY DAY 02/18/2014 01/13/2015 Inactive Bactrim DS 800 mg-160 mg tablet RxNorm: 698352 1 Tablet(s) PO BID 02/13/2014 02/19/2014 Inactive probiotic while one antibiotic Bactrim DS 800 mg-160 mg tablet RxNorm: 465079 1 Tablet(s) PO BID 02/13/2014 02/12/2014 Inactive hydrocodone 10 mg-acetaminophen 325 mg tablet RxNorm: 118437 Tablet(s) PO TAKE ONE TO TWO TABLETS BY MOUTH EVERY 6 HOURS NEEDED FOR PAIN 02/06/2014 03/18/2015 Inactive (Appended: Controlled substance eRx refill - RxReferenceNumber: [id number]) Abilify 2 mg tablet RxNorm: 571868 Tablet(s) PO TAKE ONE TABLET BY MOUTH EVERY NIGHT AT BEDTIME 02/03/2014 03/19/2015 Inactive Duragesic 50 mcg/hr transdermal patch RxNorm: 207354 1 TD q72 hours 01/14/2014 03/23/2014 Inactive alprazolam 0.25 mg tablet RxNorm: 988625 1 Tablet(s) PO QDAY PRN 01/14/2014 02/12/2014 Inactive alprazolam 0.25 mg tablet RxNorm: 501040 Tablet(s) PO TAKE ONE TABLET BY MOUTH EVERY DAY NEEDED 01/14/2014 02/24/2014 Inactive (Appended: Controlled substance eRx refill - RxReferenceNumber: [id number]) Lipitor 10 mg tablet RxNorm: 337402 Tablet(s) PO TAKE ONE TABLET BY MOUTH EVERY DAY 01/14/2014 04/13/2014 Inactive Synthroid 100 mcg tablet RxNorm: 316971 Tablet(s) PO TAKE ONE TABLET BY MOUTH EVERY DAY 2013 03/31/2014 Inactive Fioricet 50 mg-325 mg-40 mg tablet RxNorm: 746402 Tablet(s) PO TAKE ONE TABLET BY MOUTH EVERY 4 HOURS NEEDED FOR PAIN 11/27/2013 09/17/2014 Inactive Fioricet 50 mg-325 mg-40 mg tablet RxNorm: 952396 Tablet(s) PO TAKE ONE TABLET BY MOUTH EVERY 4 HOURS NEEDED FOR PAIN 11/25/2013 11/26/2013 Inactive Zithromax Z-Sergio 250 mg tablet RxNorm: 444949 Tablet(s) PO as directed 11/11/2013 01/13/2014 Inactive Bystolic 10 mg tablet RxNorm: 460074 Tablet(s) PO TAKE ONE TABLET BY MOUTH EVERY DAY 10/21/2013 09/28/2014 Inactive Abilify 2 mg tablet RxNorm: 393385 1 Tablet(s) PO QHS 09/25/2013 01/22/2014 Inactive Synthroid 100 mcg tablet RxNorm: 026644 Tablet(s) PO TAKE ONE TABLET BY MOUTH EVERY DAY 09/24/2013 12/25/2013 Inactive Abilify 2 mg tablet RxNorm: 746519 1 Tablet(s) PO QHS 09/24/2013 09/24/2013 Inactive Rocephin 500 mg solution for injection RxNorm: 984663 1ml Milliliter(s) Inj 09/24/2013 09/24/2013 Inactive Rocephin 500 mg solution for injection RxNorm: 119999 1 Milliliter(s) Inj 09/19/2013 09/19/2013 Inactive Bystolic 5 mg tablet RxNorm: 686268 1 1/2 Tablet(s) PO daily 09/17/2013 03/15/2014 Inactive 1 1/2 daily may have 90 day if cheaper Bystolic 5 mg tablet RxNorm: 837150 1 1/2 Tablet(s) PO daily 09/17/2013 09/16/2013 Inactive 1 1/2 daily Lipitor 10 mg tablet RxNorm: 090596 Tablet(s) PO TAKE ONE TABLET BY MOUTH EVERY DAY 09/12/2013 01/13/2014 Inactive hydrocodone 10 mg-acetaminophen 325 mg tablet RxNorm: 623955 Tablet(s) PO TAKE ONE TO TWO TABLETS BY MOUTH EVERY 6 HOURS NEEDED FOR PAIN 09/09/2013 No Stop Date Active (Appended: Controlled substance eRx refill - RxReferenceNumber: [id number]) hydrocodone 10 mg-acetaminophen 325 mg tablet RxNorm: 240726 1 Tablet(s) PO Q6 PRN 09/09/2013 02/06/2014 Inactive hydrocodone 10 mg-acetaminophen 325 mg tablet RxNorm: 925636 Tablet(s) PO TAKE ONE TO TWO TABLETS BY MOUTH EVERY 6 HOURS NEEDED FOR PAIN 09/06/2013 No Stop Date Active (Appended: Controlled substance eRx refill - RxReferenceNumber: [id number]) Norvasc 10 mg tablet RxNorm: 137193 Tablet(s) PO TAKE ONE TABLET BY MOUTH EVERY DAY 09/05/2013 10/25/2015 Inactive trazodone 50 mg tablet RxNorm: 335287 1 1/2 Tablet(s) PO QHS 09/03/2013 03/17/2014 Inactive 75q hs x 2 week may increase to 100mg if nec after that nystatin 100,000 unit/mL oral suspension RxNorm: 735839 6 Milliliter(s) PO QID 08/06/2013 08/15/2013 Inactive Flonase 50 mcg/actuation nasal spray,suspension RxNorm: 531138 2 [place] NASAL daily 08/06/2013 03/03/2014 Inactive nystatin 100,000 unit/mL oral suspension RxNorm: 682436 6 Unit(s) PO QID 08/05/2013 08/05/2013 Inactive Phenergan with Codeine Syrup RxNorm: 5 Milliliter(s) PO Q4 PRN 08/05/2013 12/02/2013 Inactive 8 ounces alprazolam 0.25 mg tablet RxNorm: 184313 1 Tablet(s) PO QDAY PRN 07/29/2013 01/14/2014 Inactive Diflucan 150 mg tablet RxNorm: 730146 1 Tablet(s) PO daily 07/24/2013 07/26/2013 Inactive hydrochlorothiazide 25 mg tablet RxNorm: 302362 Tablet(s) PO TAKE ONE TABLET BY MOUTH EVERY DAY MUST CALL MD FOR APPOINTMENT 07/19/2013 03/05/2014 Inactive Phenergan with Codeine Syrup RxNorm: 10 Milliliter(s) PO Q4 PRN 07/10/2013 08/04/2013 Inactive 8 ounces Rocephin 500 mg solution for injection RxNorm: 223738 1 Inj 07/10/2013 07/10/2013 Inactive cefdinir 300 mg capsule RxNorm: 097864 1 Capsule(s) PO BID 07/10/2013 07/16/2013 Inactive prednisone 10 mg tablet RxNorm: 071505 3 Tablet(s) PO daily 07/10/2013 07/14/2013 Inactive Carafate 100 mg/mL oral suspension RxNorm: 079559 10 Milliliter(s) PO Q6 PRN pt to take carafate 10mL every 6 hours as needed. 07/10/2013 08/05/2014 Inactive Kenalog 40 mg/mL suspension for injection RxNorm: 0611884 1 Milliliter(s) Inj 07/10/2013 07/10/2013 Inactive trazodone 50 mg tablet RxNorm: 617447 1 Tablet(s) PO QHS 07/10/2013 09/02/2013 Inactive sulfamethoxazole 800 mg-trimethoprim 160 mg tablet RxNorm: 602838 1 Tablet(s) PO BID 06/03/2013 06/12/2013 Inactive Synthroid 125 mcg tablet RxNorm: 739928 1 Tablet(s) PO daily 05/07/2013 09/23/2013 Inactive Bystolic 10 mg tablet RxNorm: 112120 1.5 Tablet(s) PO daily 05/07/2013 09/03/2013 Inactive Voltaren 1 % Topical Gel RxNorm: 979203 4 Gram(s) TOP QID apply 4 grams to knees, 2 grams to hands and ankles four times daily. 05/07/2013 09/03/2013 Inactive hydrocodone 10 mg-acetaminophen 325 mg tablet RxNorm: 090026 1 Tablet(s) PO Q6 PRN 04/23/2013 09/09/2013 Inactive Norvasc 10 mg tablet RxNorm: 812457 Tablet(s) PO TAKE ONE TABLET BY MOUTH EVERY DAY 04/23/2013 09/04/2013 Inactive alprazolam 0.25 mg tablet RxNorm: 697161 1 Tablet(s) PO QDAY PRN 03/25/2013 07/22/2013 Inactive Bystolic 10 mg tablet RxNorm: 997247 1 Tablet(s) PO daily TAKE ONE TABLET BY MOUTH EVERY DAY 03/25/2013 05/06/2013 Inactive zolpidem 10 mg tablet RxNorm: 753503 1 Tablet(s) PO HS PRN 03/25/2013 07/09/2013 Inactive gentamicin 0.3 % Eye Drops RxNorm: 2599721 3 Drop(s) OPH QID three gtts to each eye QID x 7 days 03/11/2013 03/10/2013 Inactive gentamicin 0.3 % eye drops RxNorm: 305646 3 Drop(s) OPH QID three gtts to each eye QID x 7 days 03/11/2013 03/17/2013 Inactive Nexium 40 mg capsule,delayed release RxNorm: 337654 Capsule(s) PO TAKE ONE CAPSULE BY MOUTH EVERY DAY 02/15/2013 02/17/2014 Inactive Cymbalta 60 mg capsule,delayed release RxNorm: 175454 Capsule(s) PO TAKE ONE CAPSULE BY MOUTH TWICE A DAY 02/15/2013 02/17/2014 Inactive hydrocodone 10 mg-acetaminophen 325 mg tablet RxNorm: 5163104 1 Tablet(s) PO Q6 PRN 01/22/2013 04/22/2013 Inactive Lipitor 10 mg tablet RxNorm: 841551 Tablet(s) PO TAKE ONE TABLET BY MOUTH EVERY DAY 01/07/2013 09/11/2013 Inactive Cymbalta 60 mg capsule,delayed release RxNorm: 286372 Capsule(s) PO TAKE ONE CAPSULE BY MOUTH TWICE A DAY 01/02/2013 02/14/2013 Inactive Synthroid 100 mcg tablet RxNorm: 297346 1 Tablet(s) PO 12/03/2012 05/06/2013 Inactive Enablex 7.5 mg tablet,extended release RxNorm: 980728 1 Tablet(s) PO daily 11/28/2012 11/27/2012 Inactive Enablex 7.5 mg tablet,extended release RxNorm: 200691 1 Tablet(s) PO daily 11/28/2012 11/28/2012 Inactive scopolamine 1.5 mg 72 hr Transderm Patch RxNorm: 252770 1 Milligram(s) TD q72 hours 11/26/2012 05/06/2013 Inactive hydrochlorothiazide 25 mg tablet RxNorm: 049445 Tablet(s) PO TAKE ONE TABLET BY MOUTH EVERY DAY MUST CALL MD FOR APPOINTMENT 11/24/2012 07/18/2013 Inactive Cymbalta 60 mg capsule,delayed release RxNorm: 769034 Capsule(s) PO TAKE ONE CAPSULE BY MOUTH TWICE A DAY 10/26/2012 01/01/2013 Inactive Bystolic 10 mg tablet RxNorm: 468219 Tablet(s) PO TAKE ONE TABLET BY MOUTH EVERY DAY 10/12/2012 03/25/2013 Inactive zolpidem 10 mg tablet RxNorm: 328205 1 Tablet(s) PO HS PRN 10/02/2012 01/29/2013 Inactive alprazolam 0.25 mg tablet RxNorm: 273567 1 Tablet(s) PO QDAY PRN 10/02/2012 01/29/2013 Inactive Kenalog 40 mg/mL Susp for Injection RxNorm: 0583728 1 Milliliter(s) Inj 09/24/2012 09/24/2012 Inactive Diflucan 150 mg tablet RxNorm: 895962 1 Tablet(s) PO daily 09/24/2012 09/30/2012 Inactive acyclovir 400 mg tablet RxNorm: 438161 1 Tablet(s) PO QID 09/24/2012 10/08/2012 Inactive Cipro 500 mg tablet RxNorm: 567240 1 Tablet(s) PO BID 09/24/2012 09/30/2012 Inactive Tamiflu 75 mg capsule RxNorm: 202091 1 Capsule(s) PO BID 09/17/2012 09/16/2012 Inactive Tamiflu 75 mg capsule RxNorm: 898553 1 Capsule(s) PO BID 09/17/2012 09/16/2012 Inactive Tamiflu 75 mg capsule RxNorm: 305781 1 Capsule(s) PO BID please disregard order for #14 09/17/2012 09/21/2012 Inactive fluconazole 150 mg tablet RxNorm: 889407 1 Tablet(s) PO daily 09/10/2012 09/13/2012 Inactive ketoconazole 2 % Topical Cream RxNorm: 793710 Application TOP BID apply to affected area BID until gone 08/31/2012 No Stop Date Active Norvasc 10 mg tablet RxNorm: 417131 Tablet(s) PO TAKE ONE TABLET BY MOUTH EVERY DAY 08/29/2012 04/22/2013 Inactive Cipro 500 mg tablet RxNorm: 607478 1 Tablet(s) PO BID 08/17/2012 08/26/2012 Inactive Flagyl 500 mg tablet RxNorm: 806224 1 Tablet(s) PO TID 08/17/2012 08/23/2012 Inactive Cipro 500 mg tablet RxNorm: 018101 1 Tablet(s) PO BID 08/17/2012 08/16/2012 Inactive zolpidem 10 mg tablet RxNorm: 236984 1 Tablet(s) PO HS PRN 08/17/2012 09/15/2012 Inactive Flagyl 500 mg tablet RxNorm: 062457 1 Tablet(s) PO TID 08/17/2012 08/16/2012 Inactive alprazolam 0.25 mg tablet RxNorm: 640726 1 Tablet(s) PO QDAY PRN 08/17/2012 09/15/2012 Inactive [place] Allergy 180 mg tablet RxNorm: 177698 1 Tablet(s) PO daily 08/08/2012 02/03/2013 Inactive hydrochlorothiazide 25 mg tablet RxNorm: 957056 1/2 Tablet(s) PO daily 08/08/2012 11/05/2012 Inactive needs appt Carafate 1 gram tablet RxNorm: 731328 1 Tablet(s) PO QID mix with 10 cc water and dissolve into slurry 08/08/2012 08/21/2012 Inactive hydrocodone 10 mg-acetaminophen 325 mg tablet RxNorm: 8812982 1 Tablet(s) PO Q6 PRN 08/08/2012 01/21/2013 Inactive Synthroid 100 mcg tablet RxNorm: 170950 1 Tablet(s) PO 08/08/2012 12/02/2012 Inactive Cymbalta 60 mg capsule,delayed release RxNorm: 545274 Capsule(s) PO 07/23/2012 10/25/2012 Inactive TAKE ONE CAPSULE BY MOUTH TWICE A DAY Nexium 40 mg capsule,delayed release RxNorm: 212622 Capsule(s) PO 06/20/2012 02/14/2013 Inactive TAKE ONE CAPSULE BY MOUTH EVERY DAY Lipitor 10 mg tablet RxNorm: 679283 Tablet(s) PO 06/20/2012 01/06/2013 Inactive TAKE ONE TABLET BY MOUTH EVERY DAY hydrochlorothiazide 25 mg tablet RxNorm: 440422 1 Tablet(s) PO daily 06/19/2012 08/07/2012 Inactive needs appt alprazolam 0.25 mg tablet RxNorm: 946095 1 Tablet(s) PO QDAY PRN 06/05/2012 07/04/2012 Inactive zolpidem 10 mg tablet RxNorm: 718955 1 Tablet(s) PO HS PRN 06/05/2012 07/04/2012 Inactive zolpidem 10 mg tablet RxNorm: 892077 1 Tablet(s) PO HS PRN 04/16/2012 05/15/2012 Inactive alprazolam 0.25 mg tablet RxNorm: 131049 1 Tablet(s) PO QDAY PRN 04/16/2012 05/15/2012 Inactive Cymbalta 60 mg capsule,delayed release RxNorm: 406898 1 Capsule(s) PO BID 03/22/2012 07/19/2012 Inactive Fioricet 50 mg-325 mg-40 mg tablet RxNorm: 785178 1 Tablet(s) PO Q4 PRN 03/22/2012 11/24/2013 Inactive Bystolic 10 mg tablet RxNorm: 411168 Tablet(s) PO 03/22/2012 10/11/2012 Inactive TAKE ONE TABLET BY MOUTH EVERY DAY potassium chloride ER 10 mEq Tab RxNorm: 962510 1 Tablet(s) PO daily 02/24/2012 03/01/2012 Inactive Lasix 20 mg Tab RxNorm: 718241 1 Tablet(s) PO daily 02/22/2012 02/21/2012 Inactive KCL 10 meq RxNorm: 1 PO daily 02/22/2012 02/21/2012 Inactive potassium chloride ER 10 mEq Tab RxNorm: 530464 1 Tablet(s) PO daily 02/22/2012 02/21/2012 Inactive Lasix 20 mg Tab RxNorm: 317884 1 Tablet(s) PO daily 02/22/2012 02/28/2012 Inactive KCL 10 meq RxNorm: 1 PO daily 02/22/2012 02/22/2012 Inactive potassium chloride ER 10 mEq Tab RxNorm: 160722 1 Tablet(s) PO daily 02/22/2012 02/23/2012 Inactive Rocephin 500 mg Solution for Injection RxNorm: 164100 Inj 02/15/2012 02/15/2012 Inactive Nexium 40 mg capsule,delayed release RxNorm: 541837 1 Capsule(s) PO daily 02/15/2012 No Stop Date Active Bystolic 10 mg Tab RxNorm: 602456 1 Tablet(s) PO daily 02/15/2012 08/12/2012 Inactive alprazolam 0.25 mg tablet RxNorm: 009856 1 Tablet(s) PO QDAY PRN 01/31/2012 02/29/2012 Inactive zolpidem 10 mg tablet RxNorm: 529195 1 Tablet(s) PO HS PRN 01/31/2012 02/29/2012 Inactive alprazolam 0.25 mg Tab RxNorm: 499261 1 Tablet(s) PO QDAY PRN 12/16/2011 01/14/2012 Inactive zolpidem 10 mg Tab RxNorm: 695272 1 Tablet(s) PO HS PRN 12/16/2011 01/14/2012 Inactive Norvasc 10 mg tablet RxNorm: 463886 1 Tablet(s) PO daily 12/02/2011 02/21/2012 Inactive Lipitor 10 mg tablet RxNorm: 907399 1 Tablet(s) PO daily 11/16/2011 05/13/2012 Inactive zolpidem 10 mg Tab RxNorm: 975389 1 Tablet(s) PO HS PRN 10/26/2011 12/15/2011 Inactive alprazolam 0.25 mg Tab RxNorm: 171993 1 Tablet(s) PO QDAY PRN 10/26/2011 12/15/2011 Inactive hydrochlorothiazide 25 mg tablet RxNorm: 152297 1 Tablet(s) PO daily 09/05/2011 03/02/2012 Inactive Synthroid 75 mcg tablet RxNorm: 482385 1 Tablet(s) PO daily 08/01/2011 02/26/2012 Inactive Abilify 2 mg Tab RxNorm: 297496 1 Tablet(s) PO QHS 08/01/2011 09/10/2012 Inactive dicyclomine 10 mg Cap RxNorm: 033784 1 Capsule(s) PO TID 08/01/2011 10/29/2011 Inactive alprazolam 0.25 mg Tab RxNorm: 910627 1 Tablet(s) PO QDAY PRN 07/26/2011 10/25/2011 Inactive Fioricet 50 mg-325 mg-40 mg tablet RxNorm: 715733 1 Tablet(s) PO Q4 PRN 07/14/2011 03/21/2012 Inactive Rocephin 500 mg Solution for Injection RxNorm: 784412 1 Milliliter(s) Inj 07/14/2011 08/01/2011 Inactive Nexium 40 mg Capsule, delayed release RxNorm: 480187 1 Capsule(s) PO daily 05/23/2011 10/06/2011 Inactive Bystolic 10 mg tablet RxNorm: 814127 1 Tablet(s) PO daily 05/23/2011 11/18/2011 Inactive Bystolic 10 mg Tab RxNorm: 168203 1 Tablet(s) PO daily 05/23/2011 05/22/2011 Inactive alprazolam 0.25 mg Tab RxNorm: 372658 1 Tablet(s) PO QDAY PRN 05/23/2011 07/25/2011 Inactive Influenza Virus Vaccine 0.5 mL RxNorm: IM 05/23/2011 05/23/2011 Inactive zolpidem 10 mg Tab RxNorm: 683360 1 Tablet(s) PO HS PRN 05/23/2011 10/25/2011 Inactive Rocephin 500 mg Solution for Injection RxNorm: 001975 1 Milliliter(s) Inj 05/03/2011 07/14/2011 Inactive Kenalog 40 mg/mL Susp for Injection RxNorm: 9282655 1 Milliliter(s) Inj 05/03/2011 07/14/2011 Inactive Bactrim DS 800 mg-160 mg Tab RxNorm: 404074 1 Tablet(s) PO BID 05/03/2011 08/01/2011 Inactive Flonase 50 mcg/actuation nasal spray,suspension RxNorm: 1171711 1 [place] NASAL daily No Start Date Active 1 spray to each nostril daily aspirin 81 mg tablet RxNorm: 105229 1 Tablet(s) PO daily No Start Date Active baclofen 10 mg tablet RxNorm: 884984 1 Tablet(s) PO TID as needed muscle spasms No Start Date Active Fish Oil 1,000 mg Cap RxNorm: 1 Capsule(s) PO TID No Start Date Active Flonase 50 mcg/actuation nasal spray,suspension RxNorm: 0705768 2 [place] NASAL daily No Start Date 08/05/2013 Inactive Levaquin 500 mg tablet RxNorm: 548075 Tablet(s) PO No Start Date 04/19/2017 Inactive Duragesic 50 mcg/hr transdermal patch RxNorm: 811072 1 TD q72 hours No Start Date 01/13/2014 Inactive Vesicare 5 mg tablet RxNorm: 488693 1 Tablet(s) PO daily No Start Date 01/06/2015 Inactive Celebrex 200 mg capsule RxNorm: 413346 1 Capsule(s) PO daily No Start Date 04/02/2014 Inactive zolpidem 10 mg Tab RxNorm: 124005 1 Tablet(s) PO HS PRN No Start Date 05/22/2011 Inactive Zyrtec 10 mg Tab RxNorm: 5072236 1 Tablet(s) PO daily No Start Date 08/08/2012 Inactive Nexium 40 mg Cap RxNorm: 106323 1 Capsule(s) PO daily No Start Date 05/22/2011 Inactive ketoconazole 2 % Topical Cream RxNorm: 250183 Application TOP BID apply to affected area BID until gone No Start Date 08/30/2012 Inactive Cymbalta 60 mg capsule,delayed release RxNorm: 107773 1 Capsule(s) PO BID No Start Date 03/21/2012 Inactive alprazolam 0.25 mg Tab RxNorm: 892866 1 Tablet(s) PO QDAY PRN No Start Date 05/22/2011 Inactive Toprol XL 100 mg 24 hr Tab RxNorm: 682796 1 Tablet(s) PO BID No Start Date 04/25/2011 Inactive Xanax 0.25 mg tablet RxNorm: 059354 1 Tablet(s) PO daily as needed No Start Date 12/27/2015 Inactive Bystolic 10 mg Tab RxNorm: 460785 1 Tablet(s) PO daily No Start Date 05/22/2011 Inactive Fioricet 50 mg-325 mg-40 mg Tab RxNorm: 148470 1 Tablet(s) PO Q4 PRN No Start Date 07/13/2011 Inactive albuterol sulfate HFA 90 mcg/Actuation Aerosol Inhaler RxNorm: 4788573 1 INH Q4 PRN No Start Date 01/06/2015 Inactive Imitrex 50 mg tablet RxNorm: 534767 1 Tablet(s) PO Q8 as needed may repeat x1 dose in 1 hour of inital dose. No Start Date 02/24/2016 Inactive dc fioricet Tessalon 200 mg Cap RxNorm: 162523 1 Capsule(s) PO Q4 PRN No Start Date 02/14/2012 Inactive Zithromax Z-Sergio 250 mg tablet RxNorm: 004847 Tablet(s) PO No Start Date 11/10/2013 Inactive hydrochlorothiazide 25 mg Tab RxNorm: 893258 1 Tablet(s) PO daily No Start Date 09/04/2011 Inactive Deplin 15 mg Tab RxNorm: 1 Tablet(s) PO daily No Start Date 08/01/2011 Inactive Brilinta 90 mg tablet RxNorm: 3189028 1 Tablet(s) PO BID No Start Date 11/23/2015 Inactive Synthroid 75 mcg Tab RxNorm: 626447 1 Tablet(s) PO daily No Start Date 07/31/2011 Inactive scopolamine 1.5 mg 72 hr Transderm Patch RxNorm: 628008 1 Milligram(s) TD q72 hours No Start Date 11/25/2012 Inactive hydrocodone-acetaminophen 10 mg-325 mg tablet RxNorm: 5944169 1 Tablet(s) PO Q6 PRN No Start Date 08/07/2012 Inactive Phenergan with Codeine Syrup RxNorm: 5-10 Milliliter(s) PO Q6 PRN No Start Date 02/14/2012 Inactive Norvasc 10 mg Tab RxNorm: 980945 1 Tablet(s) PO daily No Start Date 12/01/2011 Inactive Zithromax Z-Sergio 250 mg Tab RxNorm: 700812 Tablet(s) PO No Start Date 08/01/2011 Inactive Medication Administered Medication Codes Instructions Start Date Status Kenalog 40 mg/mL suspension for injection RxNorm: 4285699 1Milliliter 06/27/2017 No longer Active Kenalog 40 mg/mL suspension for injection RxNorm: 8054843 Milliliter 04/20/2017 No longer Active Kenalog 40 mg/mL suspension for injection RxNorm: 5000820 1Milliliter 03/14/2017 No longer Active ceftriaxone 500 mg solution for injection RxNorm: 6332498 1Milliliter 11/28/2016 No longer Active Kenalog 40 mg/mL suspension for injection RxNorm: 0775406 Milliliter 11/07/2016 No longer Active ceftriaxone 500 mg solution for injection RxNorm: 6498992 11/07/2016 No longer Active ceftriaxone 500 mg solution for injection RxNorm: 2432622 12/07/2015 No longer Active Kenalog 40 mg/mL suspension for injection RxNorm: 3681253 1Milliliter 11/24/2015 No longer Active ceftriaxone 500 mg solution for injection RxNorm: 1567649 Milliliter 11/24/2015 No longer Active promethazine 25 mg/mL injection solution RxNorm: 225997 Milliliter 08/27/2015 No longer Active ketorolac 60 mg/2 mL intramuscular solution RxNorm: 663437 Milliliter 08/27/2015 No longer Active Kenalog 40 mg/mL suspension for injection RxNorm: 7143835 Milliliter 08/10/2015 No longer Active ceftriaxone 500 mg solution for injection RxNorm: 8385411 08/10/2015 No longer Active ceftriaxone 500 mg solution for injection RxNorm: 7969015 1Milliliter 07/28/2015 No longer Active Kenalog 40 mg/mL suspension for injection RxNorm: 9062053 Milliliter 03/19/2015 No longer Active Kenalog 40 mg/mL suspension for injection RxNorm: 7990937 Milliliter 06/23/2014 No longer Active ceftriaxone 500 mg solution for injection RxNorm: 623584 06/23/2014 No longer Active Rocephin 500 mg solution for injection RxNorm: 395625 1mlMilliliter 09/24/2013 No longer Active Rocephin 500 mg solution for injection RxNorm: 201309 1Milliliter 09/19/2013 No longer Active Rocephin 500 mg solution for injection RxNorm: 586353 1 07/10/2013 No longer Active Kenalog 40 mg/mL suspension for injection RxNorm: 6794871 1Milliliter 07/10/2013 No longer Active Kenalog 40 mg/mL Susp for Injection RxNorm: 0783398 1Milliliter 09/24/2012 No longer Active Rocephin 500 mg Solution for Injection RxNorm: 246704 02/15/2012 No longer Active Influenza Virus Vaccine [...] Item Item Code Result Date Comp Metabolic Ccf478 NA 141 mEq/L 09/12/2017 Comp Metabolic Ayu279 K 4.1 mEq/L 09/12/2017 Comp Metabolic Zig037 CL 105 mEq/L 09/12/2017 Comp Metabolic Vll599 CO2 30.0 mEq/L 09/12/2017 Comp Metabolic Slu688 ANION GAP 10 09/12/2017 Comp Metabolic Ypl504 GLUCOSE 97 mg/dL 09/12/2017 Comp Metabolic Prq254 Creat 0.7 mg/dL 09/12/2017 Comp Metabolic Cqc826 eGFR 91 ml/min/1.73m2 09/12/2017 Comp Metabolic Far182 BUN 18 mg/dL 09/12/2017 Comp Metabolic Cus021 B/C Ratio 26.5 Ratio 09/12/2017 Comp Metabolic Qxv595 CALCIUM 9.7 mg/dL 09/12/2017 Comp Metabolic Cyl118 ALK PHOS 60 U/L 09/12/2017 Comp Metabolic Rzj276 AST(SGOT) 22 U/L 09/12/2017 Comp Metabolic Cpw425 ALT(SGPT) 23 U/L 09/12/2017 Comp Metabolic Gcv247 BILI T 0.4 mg/dL 09/12/2017 Comp Metabolic Dsb868 ALBUMIN 3.8 g/dL 09/12/2017 Comp Metabolic Abf999 TPRO 6.4 g/dL 09/12/2017 Comp Metabolic Der447 GLOB 2.6 g/dL 09/12/2017 Comp Metabolic Eka481 A/G Ratio 1.5 Ratio 09/12/2017 Comp Metabolic Hhi063 Osmo 283 mOsmo 09/12/2017 Cbc With Differential [...] 30.7 pg 09/12/2017 Cbc With Differential Ord2 [place]% 7.2 % 09/12/2017 Cbc With Differential Ord2 [...] 2.46 K/ul 09/12/2017 Cbc With Differential Ord2 [place] ABS# 0.6 K/ul 09/12/2017 Cbc With Differential [...] 31.4 pg 11/07/2016 Cbc With Differential Ord2 [place]% 6.1 % 11/07/2016 Cbc With Differential Ord2 [...] 2.48 K/ul 11/07/2016 Cbc With Differential Ord2 [place] ABS# 0.6 K/ul 11/07/2016 Cbc With Differential Ord2 Eos ABS# 0.3 K/ul 11/07/2016 Cbc With Differential Ord2 Baso ABS# 0.1 K/ul 11/07/2016 Comp Metabolic Lqp929 NA 139 mEq/L 11/07/2016 Comp Metabolic Axa786 K 3.8 mEq/L 11/07/2016 Comp Metabolic Pdn445 CL 106 mEq/L 11/07/2016 Comp Metabolic Rli835 CO2 25.0 mEq/L 11/07/2016 Comp Metabolic Ida052 ANION GAP 12 11/07/2016 Comp Metabolic Fyd220 GLUCOSE 98 mg/dL 11/07/2016 Comp Metabolic Tzx414 Creat 0.8 mg/dL 11/07/2016 Comp Metabolic Xkw974 eGFR 71 ml/min/1.73m2 11/07/2016 Comp Metabolic Zmj673 BUN 36 mg/dL 11/07/2016 Comp Metabolic Gtu746 B/C Ratio 42.9 Ratio 11/07/2016 Comp Metabolic Rtt901 CALCIUM 9.9 mg/dL 11/07/2016 Comp Metabolic Huq009 ALK PHOS 57 U/L 11/07/2016 Comp Metabolic Kpd089 AST(SGOT) 24 U/L 11/07/2016 Comp Metabolic Nxh072 ALT(SGPT) 28 U/L 11/07/2016 Comp Metabolic Uvc231 BILI T 0.4 mg/dL 11/07/2016 Comp Metabolic Ads862 ALBUMIN 4.2 g/dL 11/07/2016 Comp Metabolic Tqk718 TPRO 7.0 g/dL 11/07/2016 Comp Metabolic Apk697 GLOB 2.8 g/dL 11/07/2016 Comp Metabolic Ews741 A/G Ratio 1.5 Ratio 11/07/2016 Comp Metabolic Gyg269 Osmo 286 mOsmo 11/07/2016 Free T4 Htk532 FREE T4 0.75 ng/dL 11/07/2016 Tsh Ord6 hTSH II 3.46 uIU/mL 11/07/2016 Comp Metabolic Uad807 NA 138 mEq/L 05/10/2016 Comp Metabolic Qfp100 K 3.8 mEq/L 05/10/2016 Comp Metabolic Aaa578 CL 102 mEq/L 05/10/2016 Comp Metabolic Nme475 CO2 29.0 mEq/L 05/10/2016 Comp Metabolic Lme317 ANION GAP 11 05/10/2016 Comp Metabolic Hoc971 GLUCOSE 107 mg/dL 05/10/2016 Comp Metabolic Pmo448 Creat 0.7 mg/dL 05/10/2016 Comp Metabolic Ncq864 eGFR 93 ml/min/1.73m2 05/10/2016 Comp Metabolic Aej918 BUN 18 mg/dL 05/10/2016 Comp Metabolic Wrx912 B/C Ratio 26.9 Ratio 05/10/2016 Comp Metabolic Cuj577 CALCIUM 9.8 mg/dL 05/10/2016 Comp Metabolic Usk740 ALK PHOS 60 U/L 05/10/2016 Comp Metabolic Cqc822 AST(SGOT) 21 U/L 05/10/2016 Comp Metabolic Npj396 ALT(SGPT) 23 U/L 05/10/2016 Comp Metabolic Jcw483 BILI T 0.5 mg/dL 05/10/2016 Comp Metabolic Mgk850 ALBUMIN 4.1 g/dL 05/10/2016 Comp Metabolic Kbf804 TPRO 6.7 g/dL 05/10/2016 Comp Metabolic Ifu451 GLOB 2.7 g/dL 05/10/2016 Comp Metabolic Hpr473 A/G Ratio 1.5 Ratio 05/10/2016 Comp Metabolic Vcw490 Osmo 278 mOsmo 05/10/2016 Lipid Ord30 CHOL 169 mg/dL 05/10/2016 Lipid Ord30 HDL 50.0 mg/dl 05/10/2016 Lipid Ord30 TRIG 161 mg/dL 05/10/2016 Lipid Ord30 LDL 87 mg/dL 05/10/2016 Lipid Ord30 C/HDL 3.4 Ratio 05/10/2016 Comp Metabolic Yyt063 NA 137 mEq/L 06/12/2015 Comp Metabolic Vpm550 K 3.8 mEq/L 06/12/2015 Comp Metabolic Nxd170 CL 104 mEq/L 06/12/2015 Comp Metabolic Rgl720 CO2 24.0 mEq/L 06/12/2015 Comp Metabolic Xkv159 ANION GAP 13 06/12/2015 Comp Metabolic Fko065 GLUCOSE 92 mg/dL 06/12/2015 Comp Metabolic Ptz806 Creat 0.7 mg/dL 06/12/2015 Comp Metabolic Dht591 eGFR 87 ml/min/1.73m2 06/12/2015 Comp Metabolic Okp984 BUN 31 mg/dL 06/12/2015 Comp Metabolic Tpi772 B/C Ratio 43.7 Ratio 06/12/2015 Comp Metabolic Rkr885 CALCIUM 10.0 mg/dL 06/12/2015 Comp Metabolic Xor004 ALK PHOS 58 U/L 06/12/2015 Comp Metabolic Vgb788 AST(SGOT) 32 U/L 06/12/2015 Comp Metabolic Urr658 ALT(SGPT) 33 U/L 06/12/2015 Comp Metabolic Foj852 BILI T 0.5 mg/dL 06/12/2015 Comp Metabolic Juw393 ALBUMIN 4.1 g/dL 06/12/2015 Comp Metabolic Kqz794 TPRO 6.6 g/dL 06/12/2015 Comp Metabolic Dzb838 GLOB 2.5 g/dL 06/12/2015 Comp Metabolic Yhq557 A/G Ratio 1.6 Ratio 06/12/2015 Comp Metabolic Nzf509 Osmo 280 mOsmo 06/12/2015 Cbc With Differential [...] Differential Ord2 RDW 14.2 % 06/12/2015 CBC 9300934 WBC 8.7 10e9/L 04/30/2013 CBC 6772746 RBC 4.63 10e12/L 04/30/2013 CBC 0203107 HGB 14.1 g/dL 04/30/2013 CBC 4190059 HCT DET 42.2 % 04/30/2013 CBC 9993275 MCV 91.1 fL 04/30/2013 CBC 9867069 MCH 30.5 pg 04/30/2013 CBC 1410313 MCHC 33.4 g/dL 04/30/2013 CBC 3257564 PLT 248 10e9/L 04/30/2013 CBC 5235975 MPV 12.1 fL 04/30/2013 CBC 9966543 LARA % 59.0 % 04/30/2013 CBC 1347102 LY % 27.6 % 04/30/2013 CBC 5505790 MON % 8.0 % 04/30/2013 CBC 2999274 EOS % 4.8 % 04/30/2013 CBC 5717771 BASO % 0.6 % 04/30/2013 CBC 6702276 RDW 13.3 % 04/30/2013 CBC 2568616 ABS LARA 5.13 10e9/L 04/30/2013 CBC 6817955 ABS LYMPH 2.40 10e9/L 04/30/2013 CBC 5147241 ABS MONO 0.70 10e9/L 04/30/2013 CBC 4070667 ABS EOS 0.42 10e9/L 04/30/2013 CBC 6377581 ABS BASO 0.05 10e9/L 04/30/2013 CBC 4277109 RDW-SD 43.1 fL 04/30/2013 TSH 9281952 TSH 4.339 uIU/ML 04/30/2013 A1C HPLC 6913138 A1C HPLC 77355-7 5.6 % 04/30/2013 FREE T4 8145799 FREE T4 0.84 NG/DL 04/30/2013 GFR CALC 2115880 GFR AA >60 ML/MIN 04/30/2013 GFR CALC 7625579 GFR NON-AA >60 ML/MIN 04/30/2013 CHEM 14 9002250 AST 22 U/L 04/30/2013 CHEM 14 9561572 ALT 22 IU/L 04/30/2013 CHEM 14 1922765 BUN 24 MG/DL 04/30/2013 CHEM 14 7995291 ALBUMIN 4.2 GM/DL 04/30/2013 CHEM 14 5745414 CHLORIDE 107 MMOL/L 04/30/2013 CHEM 14 9762064 BILI TOT 0.3 MG/DL 04/30/2013 CHEM 14 3151046 ALK PHOS 88 U/L 04/30/2013 CHEM 14 0263474 SODIUM 141 MMOL/L 04/30/2013 CHEM 14 7104092 CREATININE 0.60 MG/DL 04/30/2013 CHEM 14 5576333 CALCIUM 9.9 MG/DL 04/30/2013 CHEM 14 7237148 POTASSIUM 3.7 MMOL/L 04/30/2013 CHEM 14 0934733 PROT TOT 6.6 GM/DL 04/30/2013 CHEM 14 5799444 GLUCOSE 123 MG/DL 04/30/2013 CHEM 14 8683259 BICARB 25 MMOL/L 04/30/2013 CHEM 14 1725914 ANION GAP 9 MEQ/L 04/30/2013 LIPID GRP HDL TEST 46 MG/DL 04/30/2013 LIPID GRP TRIG 148 MG/DL 04/30/2013 LIPID GRP TEST LDL 75 MG/DL 04/30/2013 LIPID GRP CHOL 151 MG/DL 04/30/2013 LIPID GRP RCHOL/HDL 3.28 RATIO 04/30/2013 TSH 1244848 TSH 3.341 uIU/ML 11/29/2012 CBC 7480805 WBC 8.4 10e9/L 11/29/2012 CBC 7321849 RBC 4.77 10e12/L 11/29/2012 CBC 2641369 HGB 14.9 g/dL 11/29/2012 CBC 1366394 HCT DET 44.2 % 11/29/2012 CBC 3209224 MCV 92.7 fL 11/29/2012 CBC 3565633 MCH 31.2 pg 11/29/2012 CBC 5980577 MCHC 33.7 g/dL 11/29/2012 CBC 0209313 PLT 253 10e9/L 11/29/2012 CBC 6662768 MPV 11.8 fL 11/29/2012 CBC 8434074 LARA % 54.9 % 11/29/2012 CBC 7811432 LY % 29.0 % 11/29/2012 CBC 2464337 MON % 10.4 % 11/29/2012 CBC 8509740 EOS % 5.1 % 11/29/2012 CBC 1105493 BASO % 0.6 % 11/29/2012 CBC 1157804 RDW 13.8 % 11/29/2012 CBC 4994803 ABS LARA 4.61 10e9/L 11/29/2012 CBC 5828925 ABS LYMPH 2.44 10e9/L 11/29/2012 CBC 6754787 ABS MONO 0.87 10e9/L 11/29/2012 CBC 5908413 ABS EOS 0.43 10e9/L 11/29/2012 CBC 9927416 ABS BASO 0.05 10e9/L 11/29/2012 CBC 8857949 RDW-SD 45.9 fL 11/29/2012 CHEM 14 9062627 AST 25 U/L 11/29/2012 CHEM 14 5124932 ALT 26 IU/L 11/29/2012 CHEM 14 7722831 BUN 25 MG/DL 11/29/2012 CHEM 14 9877490 ALBUMIN 4.4 GM/DL 11/29/2012 CHEM 14 9239204 CHLORIDE 106 MMOL/L 11/29/2012 CHEM 14 1173480 BILI TOT 0.4 MG/DL 11/29/2012 CHEM 14 2200997 ALK PHOS 86 U/L 11/29/2012 CHEM 14 4613402 SODIUM 141 MMOL/L 11/29/2012 CHEM 14 6714030 CREATININE 0.80 MG/DL 11/29/2012 CHEM 14 1046703 CALCIUM 9.7 MG/DL 11/29/2012 CHEM 14 7858583 POTASSIUM 4.0 MMOL/L 11/29/2012 CHEM 14 5765694 PROT TOT 6.6 GM/DL 11/29/2012 CHEM 14 9736963 GLUCOSE 112 MG/DL 11/29/2012 CHEM 14 2519018 BICARB 29 MMOL/L 11/29/2012 CHEM 14 9086458 ANION GAP 6 MEQ/L 11/29/2012 A1C HPLC 3222766 A1C HPLC 85928-4 5.5 % 11/29/2012 LIPID GRP HDL TEST 54 MG/DL 11/29/2012 LIPID GRP TRIG 77 MG/DL 11/29/2012 LIPID GRP TEST LDL 78 MG/DL 11/29/2012 LIPID GRP CHOL 147 MG/DL 11/29/2012 LIPID GRP RCHOL/HDL 2.72 RATIO 11/29/2012 FREE T4 6640233 FREE T4 1.23 NG/DL 11/29/2012 GFR CALC 5272291 GFR AA >60 ML/MIN 11/29/2012 GFR CALC 1634896 GFR NON-AA >60 ML/MIN 11/29/2012 CHEM 14 3834419 AST 23 U/L 08/07/2012 CHEM 14 5887864 ALT 34 IU/L 08/07/2012 CHEM 14 3992506 BUN 26 MG/DL 08/07/2012 CHEM 14 5366182 ALBUMIN 4.4 GM/DL 08/07/2012 CHEM 14 9717952 CHLORIDE 105 MMOL/L 08/07/2012 CHEM 14 1514017 BILI TOT 0.5 MG/DL 08/07/2012 CHEM 14 1767000 ALK PHOS 79 U/L 08/07/2012 CHEM 14 1117271 SODIUM 140 MMOL/L 08/07/2012 CHEM 14 4364379 CREATININE 0.71 MG/DL 08/07/2012 CHEM 14 0707544 CALCIUM 10.4 MG/DL 08/07/2012 CHEM 14 6940158 POTASSIUM 3.8 MMOL/L 08/07/2012 CHEM 14 1538604 PROT TOT 6.8 GM/DL 08/07/2012 CHEM 14 8309557 GLUCOSE 104 MG/DL 08/07/2012 CHEM 14 0336288 BICARB 27 MMOL/L 08/07/2012 CHEM 14 9157691 ANION GAP 8 MEQ/L 08/07/2012 A1C HPLC 0387970 A1C HPLC 60686-3 5.4 % 08/07/2012 FREE T4 4533266 FREE T4 1.11 NG/DL 08/07/2012 LIPID GRP HDL TEST 50 MG/DL 08/07/2012 LIPID GRP TRIG 127 MG/DL 08/07/2012 LIPID GRP TEST LDL 93 MG/DL 08/07/2012 LIPID GRP CHOL 168 MG/DL 08/07/2012 LIPID GRP RCHOL/HDL 3.36 RATIO 08/07/2012 CBC 4343331 WBC 8.7 10e9/L 08/07/2012 CBC 7933225 RBC 4.67 10e12/L 08/07/2012 CBC 3785070 HGB 14.4 g/dL 08/07/2012 CBC 9968282 HCT DET 42.8 % 08/07/2012 CBC 5156236 MCV 91.6 fL 08/07/2012 CBC 4853268 MCH 30.8 pg 08/07/2012 CBC 8804032 MCHC 33.6 g/dL 08/07/2012 CBC 7915053 PLT 271 10e9/L 08/07/2012 CBC 9210170 MPV 12.3 fL 08/07/2012 CBC 8795515 LARA % 50.6 % 08/07/2012 CBC 1107516 LY % 34.9 % 08/07/2012 CBC 6908573 MON % 9.1 % 08/07/2012 CBC 6115019 EOS % 5.1 % 08/07/2012 CBC 2591468 BASO % 0.3 % 08/07/2012 CBC 2994658 RDW 13.6 % 08/07/2012 CBC 4736847 ABS LARA 4.40 10e9/L 08/07/2012 CBC 6392618 ABS LYMPH 3.04 10e9/L 08/07/2012 CBC 3288041 ABS MONO 0.79 10e9/L 08/07/2012 CBC 2421902 ABS EOS 0.44 10e9/L 08/07/2012 CBC 8554723 ABS BASO 0.03 10e9/L 08/07/2012 CBC 3881102 RDW-SD 44.1 fL 08/07/2012 TSH 3601152 TSH 7.419 uIU/ML 08/07/2012 GFR CALC 5272654 GFR AA >60 ML/MIN 08/07/2012 GFR CALC 5864562 GFR NON-AA >60 ML/MIN 08/07/2012 A1C HPLC 5294610 A1C HPLC 02470-4 5.3 % 02/21/2012 TSH 4654048 TSH 0.832 uIU/ML 02/16/2012 FREE T4 8034414 FREE T4 1.04 NG/DL 02/16/2012 GFR CALC 1316591 GFR AA >60 ML/MIN 02/16/2012 GFR CALC 3420776 GFR NON-AA >60 ML/MIN 02/16/2012 BMP 0433862 GLUCOSE 112 MG/DL 02/16/2012 BMP 9629010 CREATININE 0.65 MG/DL 02/16/2012 BMP 7503145 BUN 17 MG/DL 02/16/2012 BMP 4505907 SODIUM 144 MMOL/L 02/16/2012 BMP 1213247 POTASSIUM 4.0 MMOL/L 02/16/2012 BMP 4408508 CHLORIDE 107 MMOL/L 02/16/2012 BMP 2191852 BICARB 29 MMOL/L 02/16/2012 BMP 3560458 ANION GAP 8 MEQ/L 02/16/2012 BMP 4677644 CALCIUM 9.5 MG/DL 02/16/2012 CBC 6850011 WBC 7.1 10e9/L 02/16/2012 CBC 0625013 RBC 4.47 10e12/L 02/16/2012 CBC 9348601 HGB 13.5 g/dL 02/16/2012 CBC 2576460 HCT DET 40.7 % 02/16/2012 CBC 1769127 MCV 91.1 fL 02/16/2012 CBC 3352509 MCH 30.2 pg 02/16/2012 CBC 1679255 MCHC 33.2 g/dL 02/16/2012 CBC 7421568 PLT 238 10e9/L 02/16/2012 CBC 1789682 MPV 11.4 fL 02/16/2012 CBC 8218069 LARA % 55.7 % 02/16/2012 CBC 7338512 LY % 29.6 % 02/16/2012 CBC 4965605 MON % 9.2 % 02/16/2012 CBC 5682711 EOS % 5.1 % 02/16/2012 CBC 7696133 BASO % 0.4 % 02/16/2012 CBC 6907246 RDW 13.0 % 02/16/2012 CBC 5806610 ABS LARA 3.95 10e9/L 02/16/2012 CBC 3068052 ABS LYMPH 2.10 10e9/L 02/16/2012 CBC 3442859 ABS MONO 0.65 10e9/L 02/16/2012 CBC 0481574 ABS EOS 0.36 10e9/L 02/16/2012 CBC 1952808 ABS BASO 0.03 10e9/L 02/16/2012 CBC 0535491 RDW-SD 42.4 fL 02/16/2012 URINALYSIS NONAUTO W/O SCOPE 17845 Specific [place] 1.015 DateTime(Free Text in Aprima) URINALYSIS NONAUTO W/O SCOPE 27411 PH 7 DateTime(Free Text in Aprima) URINALYSIS NONAUTO W/O SCOPE 49425 GLUCOSE neg DateTime(Free Text in Aprima) URINALYSIS NONAUTO W/O SCOPE 72162 Protein 1+ DateTime(Free Text in Apr[employer]) URINALYSIS NONAUTO W/O SCOPE 64909 Blood neg DateTime(Free Text in Aprima) URINALYSIS NONAUTO W/O SCOPE 67913 Bilirubin neg DateTime(Free Text in Apr[employer]) URINALYSIS NONAUTO W/O SCOPE 73117 Ketones neg DateTime(Free Text in Apr[employer]) URINALYSIS NONAUTO W/O SCOPE 35504 Urobilinogen neg DateTime(Free Text in Apr[employer]) URINALYSIS NONAUTO W/O SCOPE 72413 Nitrite postive DateTime(Free Text in Apr[employer]) URINALYSIS NONAUTO W/O SCOPE 81704 Leukocytes 3+ DateTime(Free Text in Apr[employer]) URINALYSIS NONAUTO W/O SCOPE 17670 Specific [place] 1.030 DateTime(Free Text in Aprima) URINALYSIS NONAUTO W/O SCOPE 70753 PH 6 DateTime(Free Text in Apr[employer]) URINALYSIS NONAUTO W/O SCOPE 91448 GLUCOSE neg DateTime(Free Text in Aprima) URINALYSIS NONAUTO W/O SCOPE 56809 Protein neg DateTime(Free Text in Aprima) URINALYSIS NONAUTO W/O SCOPE 77893 Blood neg DateTime(Free Text in Aprima) URINALYSIS NONAUTO W/O SCOPE 50684 Bilirubin neg DateTime(Free Text in Aprima) URINALYSIS NONAUTO W/O SCOPE 25425 Ketones neg DateTime(Free Text in Apr[employer]) URINALYSIS NONAUTO W/O SCOPE 70286 Urobilinogen neg DateTime(Free Text in Aprima) URINALYSIS NONAUTO W/O SCOPE 24438 Nitrite neg DateTime(Free Text in Aprima) URINALYSIS NONAUTO W/O SCOPE 39381 Leukocytes trace DateTime(Free Text in Aprima) URINALYSIS NONAUTO W/O SCOPE 93989 Specific [place] 1.005 DateTime(Free Text in Aprima) URINALYSIS NONAUTO W/O SCOPE 95261 PH 5 DateTime(Free Text in Apr[employer]) URINALYSIS NONAUTO W/O SCOPE 71236 GLUCOSE neg DateTime(Free Text in Aprima) URINALYSIS NONAUTO W/O SCOPE 31437 Protein neg DateTime(Free Text in Aprima) URINALYSIS NONAUTO W/O SCOPE 79830 Blood neg DateTime(Free Text in Aprima) URINALYSIS NONAUTO W/O SCOPE 59102 Bilirubin neg DateTime(Free Text in Aprima) URINALYSIS NONAUTO W/O SCOPE 71203 Ketones neg DateTime(Free Text in Aprima) URINALYSIS NONAUTO W/O SCOPE 66701 Urobilinogen neg DateTime(Free Text in Aprima) URINALYSIS NONAUTO W/O SCOPE 09214 Nitrite neg DateTime(Free Text in Aprima) URINALYSIS NONAUTO W/O SCOPE 59086 Leukocytes neg DateTime(Free Text in Aprima) UA 27157 Specific [place] 1.030 DateTime(Free Text in Aprima) UA 29180 PH 5 DateTime(Free Text in Aprima) UA 61733 GLUCOSE neg DateTime(Free Text in ) UA 48435 Protein trace DateTime(Free Text in ) UA 45881 Blood large DateTime(Free Text in ) UA 78325 Bilirubin neg DateTime(Free Text in ) UA 81017 Ketones neg DateTime(Free Text in Aprima) UA 46915 Urobilinogen neg DateTime(Free Text in ) UA 59493 Nitrite neg DateTime(Free Text in ) UA 95507 Leukocytes large DateTime(Free Text in ) Review [...] unsteadiness 09/19/2013 None Full Exam - General 1995 [...] contact 09/19/2013 None Full Exam - General 1995 [...] CPT-4: J3301 06/27/2017 THER/PROPH/DIAG INJ SC/IM CPT-4: 88999 04/20/2017 TRIAMCINOLONE ACET INJ NOS CPT-4: J3301 04/20/2017 TRIAMCINOLONE ACET INJ NOS CPT-4: J3301 03/14/2017 ROCEPHIN, PER 250 MG CPT- 4: J0696 03/14/2017 DESTRUCT PREMALG LESION CPT-4: 91578 12/05/2016 DESTRUCT PREMALG LES 2-14 CPT-4: 24152 12/05/2016 URINALYSIS NONAUTO W/O SCOPE CPT-4: 74097 11/28/2016 ROCEPHIN, PER 250 MG CPT- 4: J0696 11/28/2016 PPPS, SUBSEQ VISIT CPT- 4: G0439 11/07/2016 THER/PROPH/DIAG INJ SC/IM CPT-4: 35438 11/07/2016 TRIAMCINOLONE ACET INJ NOS CPT-4: J3301 11/07/2016 ROCEPHIN, PER 250 MG CPT- 4: J0696 11/07/2016 THER/PROPH/DIAG INJ SC/IM CPT-4: 89821 08/15/2016 TRIAMCINOLONE ACET INJ NOS CPT-4: J3301 08/15/2016 ROCEPHIN, PER 250 MG CPT- 4: J0696 08/15/2016 URINALYSIS NONAUTO W/O SCOPE CPT-4: 50679 05/05/2016 ROCEPHIN, PER 250 MG CPT- 4: J0696 12/07/2015 TRIAMCINOLONE ACET INJ NOS CPT-4: J3301 11/24/2015 ROCEPHIN, PER 250 MG CPT- 4: J0696 11/24/2015 THER/PROPH/DIAG INJ SC/IM CPT-4: 47527 11/24/2015 THER/PROPH/DIAG INJ SC/IM CPT-4: 86903 08/27/2015 KETOROLAC TROMETHAMINE INJ CPT-4: J1885 08/27/2015 PROMETHAZINE HCL INJECTION CPT-4: J2550 08/27/2015 THER/PROPH/DIAG INJ SC/IM CPT-4: 85190 08/10/2015 TRIAMCINOLONE ACET INJ NOS CPT-4: J3301 08/10/2015 ROCEPHIN, PER 250 MG CPT- 4: J0696 08/10/2015 C WOUN RTS (CULTURE OTHR SPECIMN AEROBIC) CPT-4: 23488 07/28/2015 THER/PROPH/DIAG INJ SC/IM CPT-4: 17568 03/19/2015 TRIAMCINOLONE ACET INJ NOS CPT-4: J3301 03/19/2015 ROCEPHIN, PER 250 MG CPT- 4: J0696 06/23/2014 TRIAMCINOLONE ACET INJ NOS CPT-4: J3301 06/23/2014 INJ TRIGGER POINT 1/2 MUSCL CPT-4: 66711 06/05/2014 URINALYSIS NONAUTO W/O SCOPE CPT-4: 31209 02/11/2014 URINALYSIS NONAUTO W/O SCOPE CPT-4: 35710 10/15/2013 ROCEPHIN, PER 250 MG CPT- 4: J0696 09/24/2013 THER/PROPH/DIAG INJ SC/IM CPT-4: 41900 09/19/2013 ROCEPHIN, PER 250 MG CPT- 4: J0696 09/19/2013 PRESCRIP TRANSMIT VIA ERX SY CPT-4: G8553 08/05/2013 ROCEPHIN, PER 250 MG CPT- 4: J0696 07/10/2013 THER/PROPH/DIAG INJ SC/IM CPT-4: 47273 07/10/2013 TRIAMCINOLONE ACET INJ NOS CPT-4: J3301 07/10/2013 PRESCRIP TRANSMIT VIA ERX SY CPT-4: G8553 07/10/2013 22743 EST. PATIENT, LEVEL III CPT-4: 17668 06/03/2013 PRESCRIP TRANSMIT VIA ERX SY CPT-4: G8553 06/03/2013 PRESCRIP TRANSMIT VIA ERX SY CPT-4: G8553 05/07/2013 ROUTINE VENIPUNCTURE CPT- 4: 75405 04/30/2013 ROUTINE VENIPUNCTURE CPT- 4: 44121 11/29/2012 TRIAMCINOLONE ACET INJ NOS CPT-4: J3301 09/24/2012 THER/PROPH/DIAG INJ SC/IM CPT-4: 13547 09/24/2012 URINALYSIS NONAUTO W/O SCOPE CPT-4: 62111 09/24/2012 PRESCRIP TRANSMIT VIA ERX SY CPT-4: G8553 09/24/2012 PRESCRIP TRANSMIT VIA ERX SY CPT-4: G8553 09/10/2012 PRESCRIP TRANSMIT VIA ERX SY CPT-4: G8553 08/08/2012 ROUTINE VENIPUNCTURE CPT- 4: 37001 08/07/2012 ROUTINE VENIPUNCTURE CPT- 4: 56305 02/16/2012 URINALYSIS NONAUTO W/O SCOPE CPT-4: 60133 02/15/2012 ROCEPHIN, PER 250 MG CPT- 4: J0696 02/15/2012 PRESCRIP TRANSMIT VIA ERX SY CPT-4: G8553 02/15/2012 ROUTINE VENIPUNCTURE CPT- 4: 38140 11/08/2011 ROCEPHIN, PER 250 MG CPT- 4: J0696 07/14/2011 THER/PROPH/DIAG INJ SC/IM CPT-4: 74843 07/14/2011 Influenza Virus Vaccine, Split Virus, >3 Yrs, IM CPT-4: 68595 05/23/2011 IMMUNIZATION ADMIN CPT- 4: 33597 05/23/2011 THER/PROPH/DIAG INJ SC/IM CPT-4: 49408 05/03/2011 ROCEPHIN, PER 250 MG CPT- 4: J0696 05/03/2011 TRIAMCINOLONE ACET INJ NOS CPT-4: J3301 05/03/2011 Vital Signs Date Vital 09/12/2017 Blood Pressure 1: 140/86 Code: 8480-6 Heart Rate 1: 62 bpm SpO2: 96% Temperature: 36.6 (C) / 97.8 (F) Weight: 153 lbs 07/25/2017 Blood Pressure 1: 140/72 Code: 8480-6 BMI: 31.3 Code: 44235-1 Heart Rate 1: 76 bpm Height: 4'11" SpO2: 97% Temperature: 37.2 (C) / 99.0 (F) Weight: 155 lbs 06/27/2017 Blood Pressure 1: 144/84 Code: 8480-6 BMI: 31.1 Code: 18271-1 Heart Rate 1: 63 bpm Height: 4'11" SpO2: 99% Temperature: 36.4 (C) / 97.6 (F) Weight: 154 lbs 05/08/2017 Blood Pressure 1: 142/86 Code: 8480-6 BMI: 30.9 Code: 35024-3 Height: 4'11" Temperature: 36.3 (C) / 97.4 (F) Weight: 153 lbs 03/14/2017 Blood Pressure 1: 146/82 Code: 8480-6 BMI: 30.9 Code: 94758-5 Heart Rate 1: 64 bpm Height: 4'11" SpO2: 94% Weight: 153 lbs 02/20/2017 Blood Pressure 1: 142/80 Code: 8480-6 BMI: 30.9 Code: 83829-7 Heart Rate 1: 75 bpm Height: 4'11" SpO2: 97% Weight: 153 lbs 02/06/2017 Blood Pressure 1: 138/90 Code: 8480-6 BMI: 31.5 Code: 56986-8 Heart Rate 1: 61 bpm Height: 4'11" SpO2: 98% Weight: 156 lbs 12/05/2016 Blood Pressure 1: 122/72 Code: 8480-6 Heart Rate 1: 59 bpm Height: 4'11" SpO2: 98% Weight: 11/28/2016 Blood Pressure 1: 154/86 Code: 8480-6 BMI: 31.3 Code: 26018-5 Heart Rate 1: 64 bpm Height: 4'11" SpO2: 94% Temperature: 36.2 (C) / 97.2 (F) Weight: 155 lbs 11/07/2016 Blood Pressure 1: 128/64 Code: 8480-6 BMI: 31.5 Code: 30204-3 Heart Rate 1: 59 bpm Height: 4'11" SpO2: 97% Weight: 156 lbs 08/15/2016 Blood Pressure 1: 110/62 Code: 8480-6 BMI: 31.5 Code: 28003-9 Heart Rate 1: 76 bpm Height: 4'11" SpO2: 97% Weight: 156 lbs 06/07/2016 Blood Pressure 1: 120/80 Code: 8480-6 BMI: 32.9 Code: 58473-9 Heart Rate 1: 63 bpm Height: 4'11" SpO2: 93% Temperature: 36.5 (C) / 97.7 (F) Weight: 163 lbs 03/15/2016 Blood Pressure 1: 90/42 Code: 8480-6 Heart Rate 1: 65 bpm SpO2: 94% 03/14/2016 Blood Pressure 1: 188/110 Code: 8480-6 Heart Rate 1: 68 bpm SpO2: 96% 02/22/2016 Blood Pressure 1: 158/80 Code: 8480-6 BMI: 32.7 Code: 88003-0 Heart Rate 1: 71 bpm Height: 4'11" SpO2: 95% Weight: 162 lbs 12/07/2015 Blood Pressure 1: 140/88 Code: 8480-6 BMI: 32.9 Code: 10041-7 Heart Rate 1: 99 bpm Height: 4'11" SpO2: 94% Temperature: 35.9 (C) / 96.6 (F) Weight: 163 lbs 11/24/2015 Blood Pressure 1: 144/78 Code: 8480-6 BMI: 33.7 Code: 57085-1 Heart Rate 1: 60 bpm Height: 4'11" SpO2: 98% Temperature: 36.6 (C) / 97.9 (F) Weight: 167 lbs 08/27/2015 Blood Pressure 1: 164/82 Code: 8480-6 BMI: 32.3 Code: 94231-5 Heart Rate 1: 60 bpm Height: 4'11" SpO2: 93% Weight: 160 lbs 08/10/2015 Blood Pressure 1: 130/60 Code: 8480-6 BMI: 32.5 Code: 10601-4 Heart Rate 1: 64 bpm Height: 4'11" SpO2: 97% Weight: 161 lbs 07/28/2015 Blood Pressure 1: 124/68 Code: 8480-6 BMI: 32.5 Code: 79400-3 Heart Rate 1: 69 bpm Height: 4'11" SpO2: 97% Weight: 161 lbs 06/11/2015 Blood Pressure 1: 148/80 Code: 8480-6 BMI: 32.9 Code: 84383-6 Heart Rate 1: 70 bpm Height: 4'11" SpO2: 94% Weight: 163 lbs 03/19/2015 Blood Pressure 1: 150/102 Code: 8480-6 Blood Pressure 2: 152/92 Code: 8480-6 BMI: 32.5 Code: 95157-8 Heart Rate 1: 71 bpm Height: 4'11" SpO2: 96% Weight: 161 lbs 01/07/2015 Blood Pressure 1: 126/84 Code: 8480-6 Heart Rate 1: 80 bpm Height: 4'11" 09/23/2014 Blood Pressure 1: 112/72 Code: 8480-6 BMI: 33.9 Code: 09796-6 Heart Rate 1: 72 bpm Height: 4'11" Weight: 168 lbs 08/05/2014 Blood Pressure 1: 140/86 Code: 8480-6 BMI: 33.3 Code: 04246-5 Height: 4'11" Weight: 165 lbs 06/23/2014 Blood Pressure 1: 132/70 Code: 8480-6 BMI: 32.9 Code: 94196-7 Heart Rate 1: 58 bpm Height: 4'11" Temperature: 36.0 (C) / 96.8 (F) Weight: 163 lbs 06/05/2014 Blood Pressure 1: 121/85 Code: 8480-6 BMI: 34.3 Code: 90070-6 Height: 4'11" Weight: 170 lbs 04/03/2014 Blood Pressure 1: 128/80 Code: 8480-6 Heart Rate 1: 88 bpm Weight: 167 lbs 03/07/2014 Blood Pressure 1: 122/82 Code: 8480-6 BMI: 33.9 Code: 58312-6 Heart Rate 1: 68 bpm Height: 4'11" Weight: 168 lbs 11/21/2013 Blood Pressure 1: 100/58 Code: 8480-6 BMI: 33.7 Code: 25542-3 Heart Rate 1: 64 bpm Height: 4'11" Weight: 167 lbs 09/24/2013 Blood Pressure 1: 148/88 Code: 8480-6 Heart Rate 1: 68 bpm Weight: 09/19/2013 Blood Pressure 1: 120/80 Code: 8480-6 BMI: 33.9 Code: 79543-4 Heart Rate 1: 80 bpm Height: 4'11" Temperature: 36.9 (C) / 98.5 (F) Weight: 168 lbs 08/05/2013 Blood Pressure 1: 128/80 Code: 8480-6 BMI: 34.3 Code: 76898-0 Heart Rate 1: 64 bpm Height: 4'11" Temperature: 36.2 (C) / 97.2 (F) Weight: 170 lbs 07/10/2013 Blood Pressure 1: 120/84 Code: 8480-6 BMI: 36.0 Code: 92056-2 Heart Rate 1: 90 bpm Height: 4'11" SpO2: 97% Temperature: 36.8 (C) / 98.2 (F) Weight: 178 lbs 06/03/2013 Blood Pressure 1: 136/94 Code: 8480-6 BMI: 34.7 Code: 32478-8 Heart Rate 1: 68 bpm Height: 4'11" Temperature: 36.7 (C) / 98.0 (F) Weight: 172 lbs 05/13/2013 Blood Pressure 1: 132/90 Code: 8480-6 Heart Rate 1: 68 bpm 05/07/2013 Blood Pressure 1: 168/100 Code: 8480-6 BMI: 34.3 Code: 06407-8 Heart Rate 1: 76 bpm Height: 4'11" Weight: 170 lbs 12/03/2012 Blood Pressure 1: 142/78 Code: 8480-6 BMI: 33.5 Code: 43683-3 Heart Rate 1: 76 bpm Height: 4'11" Weight: 166 lbs 09/24/2012 Blood Pressure 1: 116/70 Code: 8480-6 Heart Rate 1: 68 bpm Respiratory Rate: 16 bpm Temperature: 36.9 (C) / 98.4 (F) Weight: 162 lbs 09/10/2012 Blood Pressure 1: 116/80 Code: 8480-6 BMI: 33.7 Code: 91276-9 Heart Rate 1: 76 bpm Height: 4'11" [...] 1: 149/85 Code: 8480-6 BMI: 32.9 Code: 68254-4 Heart Rate 1: 79 bpm Height: 4'11" Weight: 164 lbs 05/03/2011 Blood Pressure 1: 122/79 Code: 8480-6 BMI: 30.8 Code: 63565-0 Heart Rate 1: 72 bpm Height: 5'1" Weight: 163 lbs 04/25/2011 Blood Pressure 1: 137/84 Code: 8480-6 BMI: 31.0 Code: 27128-3 Heart Rate 1: 63 bpm Height: 5'1" [...] days ago 02/15/2012 while visiting mother in [place] had uti and was put on pyridum [...] surg in december. then took trip to [facility] to see mother and has had [...] data Encounters Encounter Performer Location Codes Date 17567 EST. PATIENT, LEVEL IV Diagnosis: Diarrhea, unspecified[ICD10: R19.7] Diagnosis: Generalized abdominal pain[ICD10: R10.84] Diagnosis: Other allergic rhinitis[ICD10: J30.89] Diagnosis: Other acute sinusitis[ICD10: J01.80] Isabelle Goldman MD, [facility] CPT- 4: 85647 09/12/2017 [id number] EST. PATIENT, LEVEL III Diagnosis: Acute laryngopharyngitis[ICD10: J06.0] Diagnosis: Other allergic rhinitis[ICD10: J30.89] Diagnosis: Cough[ICD10: R05] Diagnosis: Wheezing[ICD10: R06.2] Isabelle Goldman MD, [facility] CPT-4: 92995 07/25/2017 ([id number]) [id number] EST. PATIENT, LEVEL IV Diagnosis: Acute recurrent maxillary sinusitis[ICD10: J01.01] Diagnosis: Cervicalgia[ICD10: M54.2] Diagnosis: Diarrhea, unspecified[ICD10: R19.7] Shahida Goldman MD, [facility] CPT-4: 65976 06/27/2017 ([id number]) [id number] EST. PATIENT, LEVEL III Diagnosis: Chronic maxillary sinusitis[ICD10: J32.0] Diagnosis: Gastro-esophageal reflux disease without esophagitis[ICD10: K21.9] Shahida Goldman MD, [facility] CPT-4: 37595 05/08/2017 ([id number]) 84488 EST. PATIENT, LEVEL III Diagnosis: Acute recurrent maxillary sinusitis[ICD10: J01.01] Shahida Goldman MD, [facility] CPT-4: 04508 03/14/2017 [id number] EST. PATIENT, LEVEL IV Diagnosis: Epigastric pain[ICD10: R10.13] Diagnosis: Left upper quadrant pain[ICD10: R10.12] Diagnosis: Left lower quadrant pain[ICD10: R10.32] Isabelle Goldman MD, [facility] CPT-4: 35423 02/20/2017 ([id number]) 79408 EST. PATIENT, LEVEL IV Diagnosis: Generalized anxiety disorder[ICD10: F41.1] Diagnosis: Major depressive disorder, recurrent, moderate[ICD10: F33.1] Diagnosis: Left upper quadrant pain[ICD10: R10.12] Diagnosis: Epigastric pain[ICD10: R10.13] Diagnosis: Actinic keratosis[ICD10: L57.0] Melba Goldman MD, [facility] CPT-4: 31490 02/06/2017 ([id number]) 14750 EST. PATIENT, LEVEL III Diagnosis: Actinic keratosis[ICD10: L57.0] Diagnosis: Major depressive disorder, recurrent, moderate[ICD10: F33.1] Melba Goldman MD, [facility] CPT-4: 49682 12/05/2016 ([id number]) 44750 EST. PATIENT, LEVEL III Diagnosis: Acute recurrent maxillary sinusitis[ICD10: J01.01] Diagnosis: Dysuria[ICD10: R30.0] Shahida Goldman MD, [facility] CPT-4: 84012 11/28/2016 43426 EST. PATIENT, LEVEL IV Diagnosis: Other acute sinusitis[ICD10: J01.80] Diagnosis: Acute laryngopharyngitis[ICD10: J06.0] Diagnosis: Other allergic rhinitis[ICD10: J30.89] Isabelle Goldman MD, [facility] CPT- 4: 70561 08/15/2016 ([id number]) 43713 EST. PATIENT, LEVEL III Diagnosis: Acute recurrent maxillary sinusitis[ICD10: J01.01] Diagnosis: Low back pain[ICD10: M54.5] Shahida Goldman MD, [facility] CPT-4: 85057 06/07/2016 ([id number]) Miscellaneous no charge Diagnosis: Essential (primary) hypertension[ICD10: I10] Shahida Goldman MD, [facility] CPT-4: 45550 03/15/2016 43410 EST. PATIENT, LEVEL IV Diagnosis: Essential (primary) hypertension[ICD10: I10] Diagnosis: Headache[ICD10: R51] Diagnosis: Generalized anxiety disorder[ICD10: F41.1] Shahida Goldman MD, [facility] CPT-4: 93445 03/14/2016 84362 EST. PATIENT, LEVEL III Diagnosis: Laceration without foreign body, left lower leg, initial encounter[ICD10: S81.812A] Isabelle Goldman MD, [facility] CPT-4: 63367 02/22/2016 ([id number]) 25550 EST. PATIENT, LEVEL III Diagnosis: Acute recurrent maxillary sinusitis[ICD10: J01.01] Diagnosis: Cough[ICD10: R05] Diagnosis: Allergic rhinitis due to pollen[ICD10: J30.1] Shahida Goldman MD, [facility] CPT-4: 82034 12/07/2015 ([id number]) 82326 EST. PATIENT, LEVEL IV Diagnosis: Essential (primary) hypertension[ICD10: I10] Diagnosis: Acute recurrent maxillary sinusitis[ICD10: J01.01] Diagnosis: Generalized anxiety disorder[ICD10: F41.1] Diagnosis: Cervicalgia[ICD10: M54.2] Diagnosis: Generalized intra-abdominal and pelvic swelling, mass and lump[ICD10: R19.07] Melba Goldman MD, [facility] CPT-4: 91607 11/24/2015 28595 EST. PATIENT, LEVEL III Diagnosis: Other migraine, intractable, without status migrainosus[ICD10: G43.819] Isabelle Goldman MD, [facility] CPT-4: 42460 08/27/2015 46090 EST. PATIENT, LEVEL III Diagnosis: Acute recurrent maxillary sinusitis[ICD10: J01.01] Diagnosis: Candidal stomatitis[ICD10: B37.0] Diagnosis: Acute laryngopharyngitis[ICD10: J06.0] Isabelle Goldman MD, [facility] CPT- 4: 69134 08/10/2015 36485 EST. PATIENT, LEVEL III Diagnosis: Superficial foreign body of left hand, initial encounter[ICD10: S60.552A] Melba Goldman MD, [facility] CPT-4: 36740 07/28/2015 ([id number]) 37793 EST. PATIENT, LEVEL III Diagnosis: Essential (primary) hypertension[ICD10: I10] Diagnosis: Tinea cruris[ICD10: B35.6] Diagnosis: Abnormal levels of other serum enzymes[ICD10: R74.8] Shahida Goldman MD, [facility] CPT-4: 66690 06/11/2015 ([id number]) 50627 EST. PATIENT, LEVEL IV Diagnosis: ESSENTIAL HYPERTENSION[ICD9: 401.9] Diagnosis: Hypothyroid[ICD9: 244.9] Diagnosis: ALLERGIC RHINITIS[ICD9: 477.9] Diagnosis: Anxiety[ICD9: 300.00] Diagnosis: Sleep apnea[ICD9: 780.57] Shahida Goldman MD, [facility] CPT-4: 82820 03/19/2015 ([id number]) 63332 EST. PATIENT, LEVEL III Diagnosis: ACUTE SINUSITIS[ICD9: 461.9] Celi Margot Goldman MD, [facility] CPT-4: 15908 01/07/2015 ([id number]) 58533 EST. PATIENT, LEVEL III Diagnosis: Conjunctivitis[ICD9: 372.30] Shahida Goldman MD, [facility] CPT-4: 43328 09/23/2014 97446 EST. PATIENT, LEVEL II Diagnosis: Noninfected skin tear of leg[ICD9: 891.0] Shahida Goldman MD, [facility] CPT-4: 08389 08/05/2014 ([id number]) 18054 EST. PATIENT, LEVEL III Diagnosis: Chronic maxillary sinusitis[ICD9: 473.0] Shahida Goldman MD, [facility] CPT-4: 10345 06/23/2014 37841 EST. PATIENT, LEVEL II Diagnosis: Headache[ICD9: 784.0] Shahida Goldman MD, [facility] CPT-4: 38930 06/05/2014 ([id number]) 87579 EST. PATIENT, LEVEL III Diagnosis: Abrasion of right leg[ICD9: 916.0] Diagnosis: Headache[ICD9: 784.0] Diagnosis: ALLERGIC RHINITIS[ICD9: 477.9] Shahida Goldman MD, [facility] CPT-4: 29064 04/03/2014 79689 EST. PATIENT, LEVEL II Diagnosis: Tinea corporis[ICD9: 110.5] Diagnosis: Exposure to scabies[ICD9: V01.89] Shahida Goldman MD, [facility] CPT- 4: 98911 03/07/2014 ([id number]) 13276 EST. PATIENT, LEVEL III Diagnosis: ESSENTIAL HYPERTENSION[SNOMED: 29612023] Diagnosis: OSTEOARTH NOS-UNSPEC[ICD9: 715.90] Diagnosis: Lumbago[ICD9: 724.2] Diagnosis: Cervicalgia[ICD9: 723.1] Shahida Goldman MD, [facility] CPT-4: 79247 11/21/2013 ([id number]) 72945 EST. PATIENT, LEVEL III Diagnosis: DEPRESSIVE DISORDER NEC[ICD9: 311] Diagnosis: Paronychia[ICD9: 681.9] Melba Goldman MD [facility] CPT-4: 21466 09/24/2013 ([id number]) 80380 EST. PATIENT, LEVEL III Diagnosis: Paronychia[ICD9: 681.9] Diagnosis: Cellulitis[ICD9: 682.9] Melba Goldman MD, [facility] CPT-4: 19682 09/19/2013 ([id number]) 08814 EST. PATIENT, LEVEL III Diagnosis: Conjunctivitis[ICD9: 372.30] Diagnosis: Thrush[ICD9: 112.0] Shahida Goldman MD, [facility] CPT-4: 18655 08/05/2013 ([id number]) 83469 EST. PATIENT, LEVEL III Diagnosis: ACUTE MAXILLARY SINUSITIS[ICD9: 461.0] Diagnosis: COUGH[ICD9: 786.2] Diagnosis: Insomnia[ICD9: 780.52] Diagnosis: ESOPHAGEAL REFLUX[ICD9: 530.81] Melba Goldman MD, [facility] CPT-4: 45728 07/10/2013 ([id number]) Miscellaneous no charge Diagnosis: ESSENTIAL HYPERTENSION[SNOMED: 60396830] Melba Goldman MD [facility] CPT-4: 65312 05/13/2013 ([id number]) 71789 EST. PATIENT, LEVEL IV Diagnosis: ESSENTIAL HYPERTENSION[SNOMED: 44710582] Diagnosis: HYPOTHYROIDISM[ICD9: 244.9] Diagnosis: OSTEOARTH NOS-UNSPEC[ICD9: 715.90] Melba Goldman MD, [facility] CPT- 4: 39908 05/07/2013 ([id number]) 23042 EST. PATIENT, LEVEL IV Diagnosis: Osteoarthritis[ICD9: 715.90] Diagnosis: Knee pain, bilateral[ICD9: 719.46] Diagnosis: Hip pain[ICD9: 719.45] Melba Goldman MD, [facility] CPT-4: 83271 12/03/2012 ([id number]) 99212 EST. PATIENT, LEVEL III Diagnosis: Thrush[ICD9: 112.0] Melba Goldman MD, [facility] CPT-4: 94113 09/24/2012 ([id number]) 93551 EST. PATIENT, LEVEL IV Diagnosis: ESSENTIAL HYPERTENSION[SNOMED: 65619766] Diagnosis: Thrush[ICD9: 112.0] Diagnosis: Sleep apnea[ICD9: 780.57] Melba Goldman MD [facility] CPT-4: 26117 09/10/2012 ([id number]) 69697 EST. PATIENT, LEVEL IV Diagnosis: Esophageal reflux[ICD9: 530.81] Diagnosis: Hypothyroid[ICD9: 244.9] Diagnosis: JOINT PAIN-MULT JOINTS[ICD9: 719.49] Diagnosis: ALLERGIC RHINITIS[ICD9: 477.9] Melba Goldman MD, [facility] CPT-4: 74300 08/08/2012 ([id number]) 92760 EST. PATIENT, LEVEL IV Diagnosis: Urinary frequency[ICD9: 788.41] Diagnosis: EDEMA[ICD9: 782.3] Diagnosis: HYPOTHYROIDISM[ICD9: 244.9] Diagnosis: Fatigue[ICD9: 780.79] Melba Goldman MD, [facility] CPT-4: 38977 02/15/2012 ([id number]) 03039 EST. PATIENT, LEVEL IV Diagnosis: Abdominal pain[ICD9: 789.00] Diagnosis: Fatigue[ICD9: 780.79] Diagnosis: Nausea[ICD9: 787.02] Melba Goldman MD [facility] CPT-4: 45493 11/10/2011 74762 EST. PATIENT, LEVEL IV Diagnosis: ESSENTIAL HYPERTENSION[SNOMED: 39586899] Diagnosis: DIARRHEA[ICD9: 787.91] Diagnosis: DEPRESSIVE DISORDER NEC[ICD9: 311] Diagnosis: Irritable bowel disease[ICD9: 564.1] Melba Goldman MD, [facility] CPT- 4: 22051 08/01/2011 42783 EST. PATIENT, LEVEL III Diagnosis: ACUTE SINUSITIS[ICD9: 461.9] Diagnosis: Cough[ICD9: 786.2] Shahida Goldman MD, [facility] CPT-4: 52902 07/14/2011 66649 EST. PATIENT, LEVEL IV Diagnosis: VACCIN FOR INFLUENZA[ICD9: V04.81] Diagnosis: ESSENTIAL HYPERTENSION[SNOMED: 44815181] Diagnosis: GENERALIZED ANXIETY DISEASE[ICD9: 300.02] Diagnosis: SLEEP DISTURBANCES[ICD9: 780.50] Shahida Goldman MD, [facility] CPT- 4: 64120 05/23/2011 01298 EST. PATIENT, LEVEL III Diagnosis: ACUTE SINUSITIS[ICD9: 461.9] Diagnosis: ALLERGIC RHINITIS[ICD9: 477.9] Diagnosis: Cough[ICD9: 786.2] Shahida Goldman MD, [facility] CPT-4: 11645 05/03/2011 73112 EST. PATIENT, LEVEL IV Diagnosis: ESSENTIAL HYPERTENSION[SNOMED: 82075480] Diagnosis: DEPRESSIVE DISORDER NEC[ICD9: 311] Diagnosis: Fatigue[ICD9: 780.79] Shahida Goldman MD, [facility] CPT-4: 03732 04/25/2011 Plan of Care Planned Activity Notes [...] WPtel: [phone] [facility] [place] (15 min) Moderate 09/12/2017 Patient Education: Patient [...] spray. 07/25/2017 Appointment: Isabelle Orozco WPtel: [phone] [facility] [place] (30 min) Complex 07/25/2017 Patient Education: [...] WPtel: [phone] [phone] [place] (15 min) Moderate 06/27/2017 Patient Education: [...] improving. 05/08/2017 Appointment: Shahida Manzo WPtel: [phone] [phone] (15 min) Moderate 05/08/2017 Patient Education: Patient [...] improvement. 03/14/2017 Appointment: Shahida Manzo WPtel: [phone] [phone] (15 min) Moderate 03/14/2017 Patient Education: Patient Medication Summary Completed 03/14/2017 Appointment: Shahida Manzo WPtel: [phone] [phone] [place] (15 min) Moderate 02/21/2017 Visit Plan: [...] improving. 02/20/2017 Appointment: Isabelle Orozco WPtel: [phone] [facility] [place] (30 min) Complex 02/20/2017 Patient Education: Patient Medication Summary Completed 02/20/2017 Visit Plan: Abdominal pain - liquid diet x 2 days, call on thursday to let me know it if is [...] use 02/06/2017 Appointment: [phone] (15 min) Moderate 02/06/2017 Patient Education: [...] this patient. 12/05/2016 Appointment: Melba Goldman WPtel: [address] [place], [place] [phone] Surgical Procedure 12/05/2016 Patient Education: Patient Medication Summary Completed 12/05/2016 Visit Plan: Sinusitis - Pt has acute infection - pain in face, maxillary region, Pt informed to use decongestant, RX given to patient, sinus rinses also recommended. Call if symptoms do not show improvement. Dysuria- culture urine 11/28/2016 Appointment: Shahida Manzo WPtel: [facility] [place] [phone] [place] [address] (15 min) Moderate 11/28/2016 Patient Education: Patient [...] of control. 11/07/2016 Appointment: Isabelle Orozco WPtel: [facility]3 [facility] [facility] - Annual Wellness Visit 11/07/2016 Patient [...] spray. 08/15/2016 Appointment: [phone] [facility] (15 min) Moderate 08/15/2016 Patient Education: Patient [...] use. 06/07/2016 Appointment: [phone] [phone] (10 min) Simple 06/07/2016 Patient Education: Patient [...] WPtel: [phone] [phone] (15 min) Moderate 03/14/2016 Patient Education: Patient Medication Summary Completed 03/14/2016 Care Plan: COMPLETE CBC AUTOMATED LOINC : 47122-0 Pending 03/14/2016 Visit Plan: Cellulitis - The patient was instructed in appropriate wound care. The patient was instructed to use the antibiotic ointment as per RX. The patient is to call for any change in symptoms, increase in size of the lesion, increase in pain. 02/22/2016 Appointment: [facility]roz[phone] [facility] (15 min) Moderate 02/22/2016 Patient Education: Patient [...] dai 11/24/2015 Appointment: [facility]el[facility] [phone] [facility] (30 min) Complex 11/24/2015 Patient Education: Patient Medication Summary Completed 11/24/2015 Patient Education: Obesity Completed 11/24/2015 Patient Education: Hypertension Completed 11/24/2015 Patient Education: .Cervicalgia Neck Pain Completed 11/24/2015 Care Plan: Referral Order SNOMED-CT : [id number] Ordered 11/24/2015 Visit Plan: Acute Migraine - [...] Shahida Manzo WPtel: [phone] (15 min) Moderate 06/11/2015 Patient Education: Patient [...] Sleep apnea-patient needs new CPAP-will contact [facility] 03/19/2015 Visit Plan: Hypertension - elevated [...] OFFICE Sleep apnea-patient needs new CPAP-will contact [facility] patient Pt reports that she uses [...] areas dry Exposure to scabies-RX sent to [facility]. 03/07/2014 Appointment: Melba Goldman WPtel: [address] [place] [address] rash 03/07/2014 Patient Education: Patient Medication Summary [...] change in blood pressure readings at home. Mfsgcvs-vgmjvmoecbr-zukdvbpb duragesic patch-appt with Dr Ortiz for pain management 11/21/2013 Appointment: Shahida Manzo WPtel: [address] [place], [place] [phone] [place] Follow up 11/21/2013 Patient Education: Patient Medication Summary Completed 11/21/2013 Patient Education: Hypertension Completed 11/21/2013 Patient Education: .Cervicalgia Neck Pain Completed 11/21/2013 Appointment: Melba Goldman WPtel: [facility]0 [facility] Other 11/19/2013 Appointment: Melba Goldman WPtel: [address] [place], [place] [phone] [place] Follow up 11/06/2013 Appointment: Melba Goldman WPtel: [facility]5 [facility] Lab Draw 10/15/2013 Patient Education: Patient [...] Shahida Manzo WPtel: [facility]5 [facility] [place] [address] Other 09/24/2013 Patient Education: Patient Medication Summary Completed 09/24/2013 Visit Plan: Paronychia/Cellulitis - continue with oral antibiotics as previously directed, return to clinic as previously directed, call for acute change in symptoms, worsening redness, warmth, discharge. 09/19/2013 Appointment: Melba Goldman WPtel: [address] [place], [place] [phone] Other 09/19/2013 Patient Education: Patient Medication Summary Completed 09/19/2013 Visit Plan: Conjunctivitis - rx for eye drops/lube sent electronically to the patient's pharmacy. The patient has been instructed to cleanse affected eye with warm washcloth, then place medication into affected eye four times daily. Thrush-refill nystatin-call if symptoms do not resolve 08/05/2013 Appointment: Shahida Manzo WPtel: [facility]5 [phone] Sick 08/05/2013 Patient Education: Patient Medication Summary [...] improvement. 06/03/2013 Appointment: Melba Goldman [facility]Ptel: [phone] [facility] Follow up 06/03/2013 Patient Education: Patient Medication Summary Completed 06/03/2013 Patient Education: Hypertension Completed 06/03/2013 Appointment: Melba Goldman WPtel: [address] [place] [address] [place] Nurse Visit 05/13/2013 Patient Education: Patient [...] control. 05/07/2013 Appointment: Melba Goldman [facility]Ptel: [phone] [facility] Follow up 05/07/2013 Patient Education: Patient Medication Summary Completed 05/07/2013 Patient Education: Hypertension Completed 05/07/2013 Patient Education: Patient Medication Summary Completed 04/30/2013 Patient Education: Hypertension Completed 04/30/2013 Visit Plan: Arthritis- occasionally uncontrolled symptoms- recommend pt to take antiinflammatory as directed for pain control. Use tylenol for break through pain symptoms. 12/03/2012 Appointment: Melba Goldman [facility]Ptel: [phone] [facility] Follow up 12/03/2012 Patient Education: Patient [...] not resolve 09/24/2012 Appointment: Shahida Manzo WPtel: [phone] [phone] Sick 09/24/2012 Patient Education: Patient Medication Summary [...] diflucan 09/10/2012 Appointment: Melba Goldman [facility]Ptel: [phone] [facility] Follow up 09/10/2012 Patient Education: Patient [...] break through pain symptoms. 08/08/2012 Appointment: [facility] Mazno [phone] Follow up 08/08/2012 Patient Education: Patient Medication Summary Completed 08/08/2012 Patient Education: Patient Medication Summary Completed 08/07/2012 Patient Education: Hypertension Completed 08/07/2012 Appointment: Melba Goldman WPtel: [facility]5 [place] [phone] Lab Draw 02/16/2012 Patient Education: Patient Medication [...] Needs labs. 02/15/2012 Appointment: Melba Goldman WPtel: [address] [place], [place] [phone] Other 02/15/2012 Patient Education: Patient Medication Summary Completed 02/15/2012 Visit Plan: Abdominal pain - ultrasound tomorrow AM nothing to eat before the ultrasound from 11pm tonight bland diet. Nausea - worse with fatty foods, recommended low fat/bland diet, call if symptoms worsening. 11/10/2011 Appointment: Melba Goldman WPtel: [facility]5 [facility] Other 11/10/2011 Patient Education: Patient Medication [...] the stools. 08/01/2011 Appointment: Melba Goldman WPtel: [phone] [facility] Other 08/01/2011 Patient Education: Patient Medication Summary Completed 08/01/2011 Patient Education: High Blood Pressure: Essential Hypertension Completed 08/01/2011 Visit Plan: Sinusitis - Pt has acute infection - pain in face, maxillary region, Pt informed to use decongestant, RX given to patient, sinus rinses also recommended. Call if symptoms do not show improvement. Cough- tessalon parminder 07/14/2011 Appointment: Shah[phone] [phone] [place] Other 07/14/2011 Patient Education: Patient Medication [...] office. 05/23/2011 Appointment: Shahida Manzo [facility]Ptel[phone] [phone] Other 05/23/2011 Patient Education: Patient Medication Summary [...] cough med 05/03/2011 Appointment: Shahida Manzo WPtel: [phone] [phone] Other 05/03/2011 Patient Education: Patient Medication Summary [...] her symptoms. 04/25/2011 Appointment: Shahida Manzo WPtel: [address] [place], [place] [phone] Other 04/25/2011 Patient Education: Patient Medication Summary Completed 04/25/2011 Referral: Matthew Dai Referral Appointment Requested Referral: Matthew Dai Information faxed to Dr. Dai. Their office to book. Patient informed. Completed Instructions Comment . Paronychia/Cellulitis - continue with oral antibiotics as previously directed, return to clinic as previously directed, call for acute change in symptoms, worsening redness, warmth, discharge. Gentamicin nasal spray to [facility] Increase prilosec to twice daily . [...] if the symptoms are not improving. . Acute Migraine - pt has chronic [...] needs new CPAP-will contact [facility] TAPER OFF OF CYMBALTA-TAKE EVERY [...] Sleep apnea-patient needs new CPAP-will contact [facility] patient Pt reports that she uses her CPAP and feels like she gets benefit from use of her CPAP with improved energy. . HTN-improved today-no change in medications Tinea-start clotrimazole and diflucan Elevated ALT-check labs today to monitor TAPER OFF OF CYMBALTA-TAKE EVERY OTHER DAY [...] spray. KENALOG INJECTION TODAY IN THE OFFICE increase bystolic to 15mg daily.. Hypertension - [...] OFFICE Sleep apnea-patient needs new CPAP-will contact [facility] patient Pt reports that she uses [...] based on previous levels of control. . Cellulitis - The patient was instructed in appropriate wound care. The patient was instructed to use the antibiotic ointment as per RX. The patient is to call for any change in symptoms, increase in size of the lesion, increase in pain. . Wound Instructions - Pt was instructed [...] fitted lindsay. Thrush- treating with diflucan . DX sinusitis - discussed expected course [...] provided for patient. Cough-refill cough med . Tinea-discussed natural and expected course of this diagnosis and to alert me if symtpoms do not follow expect course, or if any worse. RX sent to patient's pharmacy. Keep areas dry [facility] . Sinusitis - Pt has acute [...] FOR SINUSITIS/BRONCHITIS START PREDNISONE FOR SYMPTOMS SINUSITIS/DYSPNEA. rocephin/kenalog . Sinusitis - Pt has acute infection - pain in face, maxillary region, Pt informed to use decongestant, RX given to patient, sinus rinses also recommended. Call if symptoms do not show improvement. . Pt complains of a splinter in [...] if they worsen, or with other concerns. Edarbi 40mg daily Labs now EKG . [...] not improve, or if any worse. . Hypertension - well controlled - continue with current medications, continue with no added salt diet. Pt has been encouraged to exercise daily. The pt has been advised to call the office if there are any acute concerns about change in blood pressure readings at home. Wioqaxg-wnwczawgrlp-dqvwqibz duragesic patch-appt with Dr Ortiz for pain [...] pt to follow up with specialist at [address] - she needs to pursue treatment. Anxietly - medications unchanged. colonoscopy with dr. dai . .Sinusitis - Pt has acute infection [...] symptoms do not show improvement. Dysuria-culture urine [employer] BID . Sinusitis - Pt [...]
--- OUTSIDE RECORDS SUMMARY | 2019-03-08 18:47 | XMS REPORT | Continuity of Care Document ---
Author Organization Unknown Address Unknown Allergies Active Description Code Type Severity Reaction Onset Reported/Identified Relationship to Patient Clinical Status Yes No Known Drug Allergies [id number] Drug Allergy Mild N/A 08/10/2009 Yes No Known Drug Allergies [id number] Drug Allergy Unknown N/A 12/04/2015 Medications There is no data. Problems Date Dx Coded Attending Type Code Diagnosis Diagnosed By 11/05/2013 WARNER NATION MD, FACC FACP CCDS Ot 244.9 HYPOTHYROIDISM NOS 11/05/2013 RIOS TURPIN FACC, WARNER FACP CCDS Ot 272.4 HYPERLIPIDEMIA NEC/NOS 11/05/2013 WARNER NATION MD, FACC FACP CCDS Ot 278.00 OBESITY, NOS 11/05/2013 RIOS TURPIN FACC, WARNER FACP CCDS Ot 300.4 DYSTHYMIC DISORDER 11/05/2013 WARNER NATION MD, FACC FACP CCDS Ot 401.9 HYPERTENSION NOS 11/05/2013 RIOS TURPIN FACC, WARNER FACP CCDS Ot 411.1 INTERMED CORONARY SYND 11/05/2013 WARNER NATION MD, FACC FACP CCDS Ot 414.01 CORONARY ATHEROSCLEROSIS OF [place] CORON 11/05/2013 WARNER NATION MD, FACC FACP CCDS Ot 530.81 ESOPHAGEAL REFLUX 11/05/2013 WARNER NATION MD, FACC FACP CCDS Ot V17.3 FAM HX-ISCHEM HEART DIS 11/05/2013 WARNER NATION MD, FACC FACP CCDS Ot V58.69 OTH MED,LT,CURRENT USE 11/05/2013 WARNER NATION MD, FACC FACP CCDS Ot V85.32 BODY MASS INDEX 32.0-32.9, ADULT 03/03/2014 SANDEEP BAI MD Ot V45.82 PERCUTANEOUS TRANSLUM CORON ANGIOPLASTY 03/03/2014 SANDEEP BAI MD Ot V57.89 REHABILITATION PROC NEC 03/03/2014 SANDEEP BAI MD Ot V58.73 AFTERCARE POST SURGERY CIRULATORY SYSTEM 03/27/2014 ALEXANDRIA PICKARD MD Ot 847.0 SPRAIN OF NECK 03/27/2014 ALEXANDRIA PICKARD MD Ot 959.01 HEAD INJURY, NOS 03/27/2014 NEERAJ TURPIN, ALEXANDRIA Flores Ot E000.8 OTHER EXTERNAL CAUSE STATUS 03/27/2014 ALEXANDRIA PICKARD MD Ot E849.0 ACCIDENT IN HOME 03/27/2014 ALEXANDRIA PICKARD MD Ot E888.9 FALL NOS 08/16/2014 MAXI WRIGHT MIX MILL TENDER Ot V76.12 09/03/2014 MAXI WRIGHT MIX MILL TENDER Ot V76.12 09/15/2014 MAXI WRIGHT MIX MILL TENDER Ot 723.1 10/22/2014 Ot V76.12 10/22/2014 CAMPOS TURPIN, UNIQUE Gonzalez Ot 719.46 10/22/2014 MAXI WRIGHT MIX MILL TENDER Ot 723.1 10/22/2014 MAXI WRIGHT MIX MILL TENDER Ot 723.0 10/22/2014 SANDEEP BAI MD Ot 272.4 10/22/2014 SANDEEP BAI MD Ot 396.3 10/22/2014 BHUMIKA TURPIN, SANDEEP Oneil Ot 397.0 10/22/2014 SANDEEP BAI MD Ot 401.9 10/22/2014 SANDEEP BAI MD Ot 416.8 10/22/2014 SANDEEP BAI MD Ot 786.09 10/22/2014 SANDEEP BAI MD Ot 786.50 10/22/2014 MAXI WRIGHT MIX MILL TENDER Ot 336.9 10/22/2014 MAXI WRIGHT MIX MILL TENDER Ot 722.10 10/22/2014 MAXI WRIGHT MIX MILL TENDER Ot 723.1 10/22/2014 MAXI WRIGHT MIX MILL TENDER Ot 782.0 10/22/2014 MAXI WRIGHT MIX MILL TENDER Ot V76.12 12/12/2014 SANDEEP BAI MD Ot 272.4 12/12/2014 SANDEEP BAI MD Ot 401.9 12/12/2014 SANDEEP BAI MD Ot 414.00 12/12/2014 SANDEEP BAI MD Ot 786.09 12/12/2014 SANDEEP BAI MD Ot 786.50 09/04/2015 Ot V76.12 09/04/2015 CAMPOS TURPIN, UNIQUE Gonzalez Ot 719.46 09/04/2015 MAXI WRIGHT MIX MILL TENDER Ot 723.1 09/04/2015 MAXI WRIGHT MIX MILL TENDER Ot 723.0 09/04/2015 BHUMIKA TURPIN, SANDEEP J Ot 272.4 09/04/2015 BHUMIKA TURPIN, SANDEEP J Ot 396.3 09/04/2015 BHUMIKA TURPIN, SANDEEP J Ot 397.0 09/04/2015 BHUMIKA TURPIN, SANDEEP J Ot 401.9 09/04/2015 BHUMIKA TURPIN, SANDEEP J Ot 416.8 09/04/2015 BHUMIKA TURPIN, SANDEEP Oneil Ot 786.09 09/04/2015 BHUMIKA TURPIN, SANDEEP Oneil Ot 786.50 09/04/2015 MAXI WRIGHT MIX MILL TENDER Ot 336.9 09/04/2015 MAXI WRIGHT MIX MILL TENDER Ot 722.10 09/04/2015 MAXI WRIGHT MIX MILL TENDER Ot 723.1 09/04/2015 MAXI WRIGHT MIX MILL TENDER Ot 782.0 09/04/2015 BHUMIKA TURPIN, SANDEEP Oneil Ot 272.4 09/04/2015 BHUMIKA TURPIN, SANDEEP Oneil Ot 401.9 09/04/2015 BHUMIKA TURPIN, SANDEEP Oneil Ot 414.00 09/04/2015 BHUMIKA TURPIN, SANDEEP J Ot 786.09 09/04/2015 SANDEEP BAI MD Ot 786.50 09/04/2015 MAXI WRIGHT MIX MILL TENDER Ot V76.12 09/04/2015 IMELDA VERDUZCO MD Ot M50.13 CERVICAL DISC DISORDER W RADICULOPATHY, 09/04/2015 IMELDA VERDUZCO MD Ot M54.81 OCCIPITAL NEURALGIA 09/04/2015 IMELDA VERDUZCO MD Ot Z79.899 OTHER CAPSULE FILLER (CURRENT) DRUG THERAPY 10/22/2015 IMELDA VERDUZCO MD Ot M47.892 10/29/2015 IMELDA VERDUZCO MD Ot M47.892 11/10/2015 RAJEEV PERKINS DO Ot M47.812 11/19/2015 MAXI WRIGHTP Ot Z12.31 12/01/2015 RAJEEV PERKINS DO Ot M47.812 12/04/2015 ISIDRA TURPIN, RUDY M Ot Z01.818 12/04/2015 ISIDRA TURPIN, RUDY M Ot Z01.818 12/04/2015 ISIDRA TURPIN, RUDY Dubose Ot Z01.818 ENCOUNTER FOR OTHER PREPROCEDURAL EXAMIN 12/07/2015 ISIDRA TURPIN, RUDY Dubose Ot Z01.818 12/10/2015 GREGORIO POLLACK RAJEEV Sedrick Ot M47.812 12/25/2015 IMELDA VERDUZCO MD Ot M47.812 SPONDYLOSIS W/O MYELOPATHY OR RADICULOPA 12/25/2015 IMELDA VERDUZCO MD Ot M50.13 CERVICAL DISC DISORDER W RADICULOPATHY, 12/25/2015 IMELDA VERDUZCO MD Ot M54.81 OCCIPITAL NEURALGIA 12/25/2015 IMELDA VERDUZCO MD Ot Z79.899 OTHER FDC (CURRENT) DRUG THERAPY 01/08/2016 IMELDA VERDUZCO MD Ot M47.812 SPONDYLOSIS W/O MYELOPATHY OR RADICULOPA 01/08/2016 IMELDA VERDUZCO MD Ot M50.13 CERVICAL DISC DISORDER W RADICULOPATHY, 01/08/2016 IMELDA VERDUZCO MD Ot M54.81 OCCIPITAL NEURALGIA 01/08/2016 IMELDA VERDUZCO MD Ot Z79.899 OTHER CAPSULE FILLER (CURRENT) DRUG THERAPY 01/22/2016 IMELDA VERDUZCO MD Ot M47.812 SPONDYLOSIS W/O MYELOPATHY OR RADICULOPA 01/22/2016 IMELDA VERDUZCO MD Ot M50.13 CERVICAL DISC DISORDER W RADICULOPATHY, 01/22/2016 IMELDA VERDUZCO MD Ot M54.81 OCCIPITAL NEURALGIA 01/22/2016 IMELDA VERDUZCO MD Ot Z79.899 OTHER CAPSULE FILLER (CURRENT) DRUG THERAPY 03/15/2016 MAXI WRIGHT MIX MILL TENDER Ot I10 ESSENTIAL (PRIMARY) HYPERTENSION 04/08/2016 MAXI WRIGHT MIX MILL TENDER Ot I10 ESSENTIAL (PRIMARY) HYPERTENSION 04/08/2016 MAXI WRIGHTP Ot M79.602 PAIN IN LEFT ARM 04/08/2016 MAXI WRIGHT MIX MILL TENDER Ot R51 HEADACHE 04/14/2016 MAXI WRIGHT MIX MILL TENDER Ot I10 ESSENTIAL (PRIMARY) HYPERTENSION 04/14/2016 MAXI WRIGHT MIX MILL TENDER Ot M79.602 PAIN IN LEFT ARM 04/14/2016 MAXI WRIGHT MIX MILL TENDER Ot R51 HEADACHE 12/01/2016 Ot V76.12 OTH SCREEN MAMMO- MALIGN NEOPLASM OF TOY 12/01/2016 CAMPOS TURPIN, UNIQUE Gonzalez Ot 719.46 JOINT PAIN-L/LEG 12/01/2016 MAXI WRIGHT MIX MILL TENDER Ot 723.1 CERVICALGIA 12/01/2016 MAXI WRIGHT MIX MILL TENDER Ot 723.0 CERVICAL SPINAL STENOSIS 12/01/2016 SANDEEP BAI MD Ot 272.4 HYPERLIPIDEMIA NEC/NOS 12/01/2016 SANDEEP BAI MD Ot 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 12/01/2016 SANDEEP BAI MD Ot 397.0 TRICUSPID VALVE DISEASE 12/01/2016 SANDEEP BAI MD Ot 401.9 HYPERTENSION NOS 12/01/2016 SANDEEP BAI MD Ot 416.8 CHR PULMON HEART DIS NEC 12/01/2016 SANDEEP BAI MD Ot 786.09 RESPIRATORY ABNORM NEC 12/01/2016 SANDEEP BAI MD Ot 786.50 CHEST PAIN NOS 12/01/2016 MAXI WRIGHT MIX MILL TENDER Ot 336.9 SPINAL CORD DISEASE NOS 12/01/2016 MAXI WRIGHT MIX MILL TENDER Ot 722.10 LUMBAR DISC DISPLACEMENT 12/01/2016 MAXI WRIGHT MIX MILL TENDER Ot 723.1 CERVICALGIA 12/01/2016 MAXI WRIGHT MIX MILL TENDER Ot 782.0 SKIN SENSATION DISTURB 12/01/2016 SANDEEP BAI MD Ot 272.4 HYPERLIPIDEMIA NEC/NOS 12/01/2016 SANDEEP BAI MD Ot 401.9 HYPERTENSION NOS 12/01/2016 SANDEEP BAI MD Ot 414.00 CORON ATHEROSCLER NOS TYPE VESSEL, NATIV 12/01/2016 SANDEEP BAI MD Ot 786.09 RESPIRATORY ABNORM NEC 12/01/2016 SANDEEP BAI MD Ot 786.50 CHEST PAIN NOS 12/01/2016 MAXI WRIGHT MIX MILL TENDER Ot V76.12 OTH SCREEN MAMMO-MALIGN NEOPLASM OF TOY 12/01/2016 LUBA TURPIN, IMELDA Oneil Ot M47.892 OTHER SPONDYLOSIS, CERVICAL REGION 12/01/2016 MAXI WRIGHT MIX MILL TENDER Ot Z12.31 ENCNTR SCREEN MAMMOGRAM FOR MALIGNANT NE 12/01/2016 RAJEEV PERKINS DO Ot M47.812 SPONDYLOSIS W/O MYELOPATHY OR RADICULOPA 12/01/2016 MAXI WRIGHT MIX MILL TENDER Ot I10 ESSENTIAL (PRIMARY) HYPERTENSION 12/01/2016 MAXI WRIGHT MIX MILL TENDER Ot M79.602 PAIN IN LEFT ARM 12/01/2016 MAXI WRIGHT MIX MILL TENDER Ot R51 HEADACHE 01/18/2017 ALBANIA VIZCAINO JOB SITE SUPERINTENDENT Ot Z12.31 ENCNTR SCREEN MAMMOGRAM FOR MALIGNANT NE 01/18/2017 ALBANIA VIZCAINO JOB SITE SUPERINTENDENT Ot Z12.31 ENCNTR SCREEN MAMMOGRAM FOR MALIGNANT NE 02/26/2017 ALBANIA VIZCAINO JOB SITE SUPERINTENDENT Ot K57.92 DVTRCLI OF INTEST, PART UNSP, W/O PERF O 06/21/2017 Ot V76.12 OTH SCREEN MAMMO- MALIGN NEOPLASM OF TOY 06/21/2017 CAMPOS TURPIN, UNIQUE Gonzalez Ot 719.46 JOINT PAIN-L/LEG 06/21/2017 MAXI WRIGHT MIX MILL TENDER Ot 723.1 CERVICALGIA 06/21/2017 MAXI WRIGHT MIX MILL TENDER Ot 723.0 CERVICAL SPINAL STENOSIS 06/21/2017 SANDEEP BAI MD Ot 272.4 HYPERLIPIDEMIA NEC/NOS 06/21/2017 SANDEEP BAI MD Ot 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 06/21/2017 SANDEEP BAI MD Ot 397.0 TRICUSPID VALVE DISEASE 06/21/2017 SANDEEP BAI MD Ot 401.9 HYPERTENSION NOS 06/21/2017 SANDEEP BAI MD Ot 416.8 CHR PULMON HEART DIS NEC 06/21/2017 SANDEEP BAI MD Ot 786.09 RESPIRATORY ABNORM NEC 06/21/2017 SANDEEP BAI MD Ot 786.50 CHEST PAIN NOS 06/21/2017 MAXI WRIGHT MIX MILL TENDER Ot 336.9 SPINAL CORD DISEASE NOS 06/21/2017 MAXI WRIGHT MIX MILL TENDER Ot 722.10 LUMBAR DISC DISPLACEMENT 06/21/2017 MAXI WRIGHT MIX MILL TENDER Ot 723.1 CERVICALGIA 06/21/2017 MAXI WRIGHT MIX MILL TENDER Ot 782.0 SKIN SENSATION DISTURB 06/21/2017 SANDEEP BAI MD Ot 272.4 HYPERLIPIDEMIA NEC/NOS 06/21/2017 SANDEEP BAI MD Ot 401.9 HYPERTENSION NOS 06/21/2017 SANDEEP BAI MD Ot 414.00 CORON ATHEROSCLER NOS TYPE VESSEL, NATIV 06/21/2017 SANDEEP BAI MD Ot 786.09 RESPIRATORY ABNORM NEC 06/21/2017 SANDEEP BAI MD Ot 786.50 CHEST PAIN NOS 06/21/2017 MAXI WRIGHTP Ot V76.12 OTH SCREEN MAMMO-MALIGN NEOPLASM OF TOY 06/21/2017 IMELDA VERDUZCO MD Ot M47.892 OTHER SPONDYLOSIS, CERVICAL REGION 06/21/2017 MAXI WRIGHT MIX MILL TENDER Ot Z12.31 ENCNTR SCREEN MAMMOGRAM FOR MALIGNANT NE 06/21/2017 RAJEEV PERKINS DO Ot M47.812 SPONDYLOSIS W/O MYELOPATHY OR RADICULOPA 06/21/2017 MAXI WRIGHT MIX MILL TENDER Ot I10 ESSENTIAL (PRIMARY) HYPERTENSION 06/21/2017 MAXI WRIGHT MIX MILL TENDER Ot M79.602 PAIN IN LEFT ARM 06/21/2017 MAXI WRIGHT MIX MILL TENDER Ot R51 HEADACHE 06/21/2017 ALBANIA VIZCAINO JOB SITE SUPERINTENDENT Ot Z12.31 ENCNTR SCREEN MAMMOGRAM FOR MALIGNANT NE 06/21/2017 ALBANIA VIZCAINO JOB SITE SUPERINTENDENT Ot K57.92 DVTRCLI OF INTEST, PART UNSP, W/O PERF O 06/21/2017 BOYD BURNETT Ot E78.2 MIXED HYPERLIPIDEMIA 06/21/2017 BOYD BURNETT Ot I10 ESSENTIAL (PRIMARY) HYPERTENSION 06/21/2017 BOYD BURNETT Ot I25.10 ATHSCL HEART DISEASE OF [place] CORONARY 06/21/2017 BOYD BURNETT Ot I65.29 OCCLUSION AND STENOSIS OF UNSPECIFIED CA 06/27/2017 Ot V76.12 OTH SCREEN MAMMO- MALIGN NEOPLASM OF TOY 06/27/2017 CAMPOS TURPIN, UNIQUE Gonzalez Ot 719.46 JOINT PAIN-L/LEG 06/27/2017 MAXI WRIGHTP Ot 723.1 CERVICALGIA 06/27/2017 MAXI WRIGHTP Ot 723.0 CERVICAL SPINAL STENOSIS 06/27/2017 SANDEEP BAI MD Ot 272.4 HYPERLIPIDEMIA NEC/NOS 06/27/2017 SANDEEP BAI MD Ot 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 06/27/2017 SANDEEP BAI MD Ot 397.0 TRICUSPID VALVE DISEASE 06/27/2017 SANDEEP BAI MD Ot 401.9 HYPERTENSION NOS 06/27/2017 SANDEEP BAI MD Ot 416.8 CHR PULMON HEART DIS NEC 06/27/2017 SANDEEP BAI MD Ot 786.09 RESPIRATORY ABNORM NEC 06/27/2017 SANDEEP BAI MD Ot 786.50 CHEST PAIN NOS 06/27/2017 MAXI WRIGHT MIX MILL TENDER Ot 336.9 SPINAL CORD DISEASE NOS 06/27/2017 MAXI WRIGHTP Ot 722.10 LUMBAR DISC DISPLACEMENT 06/27/2017 MAXI WRIGHTP Ot 723.1 CERVICALGIA 06/27/2017 MAXI WRIGHTP Ot 782.0 SKIN SENSATION DISTURB 06/27/2017 SANDEEP BAI MD Ot 272.4 HYPERLIPIDEMIA NEC/NOS 06/27/2017 SANDEEP BAI MD Ot 401.9 HYPERTENSION NOS 06/27/2017 SANDEEP BAI MD Ot 414.00 CORON ATHEROSCLER NOS TYPE VESSEL, NATIV 06/27/2017 SANDEEP BAI MD Ot 786.09 RESPIRATORY ABNORM NEC 06/27/2017 SANDEEP BAI MD Ot 786.50 CHEST PAIN NOS 06/27/2017 MAXI WRIGHTP Ot V76.12 OTH SCREEN MAMMO-MALIGN NEOPLASM OF TOY 06/27/2017 IMELDA VERDUZCO MD Ot M47.892 OTHER SPONDYLOSIS, CERVICAL REGION 06/27/2017 MAXI WRIGHT Ot Z12.31 ENCNTR SCREEN MAMMOGRAM FOR MALIGNANT NE 06/27/2017 RAJEEV PERKINS DO Ot M47.812 SPONDYLOSIS W/O MYELOPATHY OR RADICULOPA 06/27/2017 MAXI WRIGHT MIX MILL TENDER Ot I10 ESSENTIAL (PRIMARY) HYPERTENSION 06/27/2017 MAXI WRIGHTP Ot M79.602 PAIN IN LEFT ARM 06/27/2017 MAXI WRIGHTP Ot R51 HEADACHE 06/27/2017 ALBANIA VIZCAINO JOB SITE SUPERINTENDENT Ot Z12.31 ENCNTR SCREEN MAMMOGRAM FOR MALIGNANT NE 06/27/2017 ALBANIA VIZCAINO JOB SITE SUPERINTENDENT Ot K57.92 DVTRCLI OF INTEST, PART UNSP, W/O PERF O 06/27/2017 BOYD BURNETT Ot E78.2 MIXED HYPERLIPIDEMIA 06/27/2017 BOYD BURNETT Ot I10 ESSENTIAL (PRIMARY) HYPERTENSION 06/27/2017 BOYD BURNETT Ot I25.10 ATHSCL HEART DISEASE OF [place] CORONARY 06/27/2017 BOYD BURNETT Ot I65.29 OCCLUSION AND STENOSIS OF UNSPECIFIED CA 06/28/2017 Ot V76.12 OTH SCREEN MAMMO- MALIGN NEOPLASM OF TOY 06/28/2017 CAMPOS TURPIN, UNIQUE Gonzalez Ot 719.46 JOINT PAIN-L/LEG 06/28/2017 MAXI WRIGHTP Ot 723.1 CERVICALGIA 06/28/2017 MAXI WRIGHTP Ot 723.0 CERVICAL SPINAL STENOSIS 06/28/2017 SANDEEP BAI MD Ot 272.4 HYPERLIPIDEMIA NEC/NOS 06/28/2017 SANDEEP BAI MD Ot 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 06/28/2017 SANDEEP ABI MD Ot 397.0 TRICUSPID VALVE DISEASE 06/28/2017 SANDEEP BAI MD Ot 401.9 HYPERTENSION NOS 06/28/2017 SANDEEP BAI MD Ot 416.8 CHR PULMON HEART DIS NEC 06/28/2017 SANDEEP BAI MD Ot 786.09 RESPIRATORY ABNORM NEC 06/28/2017 SANDEEP BAI MD Ot 786.50 CHEST PAIN NOS 06/28/2017 MAXI WRIGHTP Ot 336.9 SPINAL CORD DISEASE NOS 06/28/2017 MAXI WRIGHTP Ot 722.10 LUMBAR DISC DISPLACEMENT 06/28/2017 MAXI WRIGHTP Ot 723.1 CERVICALGIA 06/28/2017 MAXI WRIGHT MIX MILL TENDER Ot 782.0 SKIN SENSATION DISTURB 06/28/2017 SANDEEP BAI MD Ot 272.4 HYPERLIPIDEMIA NEC/NOS 06/28/2017 SANDEEP BAI MD Ot 401.9 HYPERTENSION NOS 06/28/2017 SANDEEP BAI MD Ot 414.00 CORON ATHEROSCLER NOS TYPE VESSEL, NATIV 06/28/2017 SANDEEP BAI MD Ot 786.09 RESPIRATORY ABNORM NEC 06/28/2017 SANDEEP BAI MD Ot 786.50 CHEST PAIN NOS 06/28/2017 MAXI WRIGHT Ot V76.12 OTH SCREEN MAMMO-MALIGN NEOPLASM OF TOY 06/28/2017 IMELDA VERDUZCO MD Ot M47.892 OTHER SPONDYLOSIS, CERVICAL REGION 06/28/2017 MAXI WRIGHT Ot Z12.31 ENCNTR SCREEN MAMMOGRAM FOR MALIGNANT NE 06/28/2017 RAJEEV PERKINS DO Ot M47.812 SPONDYLOSIS W/O MYELOPATHY OR RADICULOPA 06/28/2017 MAXI WRIGHTP Ot I10 ESSENTIAL (PRIMARY) HYPERTENSION 06/28/2017 MAXI WRIGHT Ot M79.602 PAIN IN LEFT ARM 06/28/2017 MAXI WRIGHTP Ot R51 HEADACHE 06/28/2017 ALBANIA VIZCAINO APRN Ot Z12.31 ENCNTR SCREEN MAMMOGRAM FOR MALIGNANT NE 06/28/2017 ALBANIA VIZCAINO JOB SITE SUPERINTENDENT Ot K57.92 DVTRCLI OF INTEST, PART UNSP, W/O PERF O 06/28/2017 BOYD BURNETT Ot E78.2 MIXED HYPERLIPIDEMIA 06/28/2017 BOYD BURNETT Ot I10 ESSENTIAL (PRIMARY) HYPERTENSION 06/28/2017 BOYD BURNETT Ot I25.10 ATHSCL HEART DISEASE OF [place] CORONARY 06/28/2017 BOYD BURNETT Ot I65.29 OCCLUSION AND STENOSIS OF UNSPECIFIED CA 06/28/2017 BOYD BURNETT Ot E78.2 MIXED HYPERLIPIDEMIA 06/28/2017 BOYD BURNETT Ot I10 ESSENTIAL (PRIMARY) HYPERTENSION 06/28/2017 BOYD BURNETT Ot I25.10 ATHSCL HEART DISEASE OF [place] CORONARY 06/28/2017 HUNG-ADDY PA, BOYD K Ot I65.29 OCCLUSION AND STENOSIS OF UNSPECIFIED CA 06/28/2017 MACIE BUCKLEY, BOYD K Ot E78.2 MIXED HYPERLIPIDEMIA 06/28/2017 MACIE BUCKLEY, BOYD K Ot I10 ESSENTIAL (PRIMARY) HYPERTENSION 06/28/2017 MACIE BUCKLEY, BOYD K Ot I25.10 ATHSCL HEART DISEASE OF [place] CORONARY 06/28/2017 MACIE BUCKLEY, BOYD K Ot I65.29 OCCLUSION AND STENOSIS OF UNSPECIFIED CA 06/28/2017 HUNG-ADDY BUCKLEY, BOYD K Ot E78.2 MIXED HYPERLIPIDEMIA 06/28/2017 MACIE BUCKLEY, BOYD K Ot I10 ESSENTIAL (PRIMARY) HYPERTENSION 06/28/2017 JOEL BURNETTTH K Ot I25.10 ATHSCL HEART DISEASE OF [place] CORONARY 06/28/2017 BOYD BURNETT K Ot I65.29 OCCLUSION AND STENOSIS OF UNSPECIFIED CA 06/28/2017 MACIE BUCKLEY BOYD K Ot E78.2 MIXED HYPERLIPIDEMIA 06/28/2017 MACIE BUCKLEY, BOYD K Ot I10 ESSENTIAL (PRIMARY) HYPERTENSION 06/28/2017 MACIE BUCKLEY BOYD K Ot I25.10 ATHSCL HEART DISEASE OF [place] CORONARY 06/28/2017 JOEL BURNETTTH K Ot Z82.49 FAMILY HX OF ISCHEM HEART DIS AND OTH DI 07/03/2017 MACIE BUCKLEY BOYD K Ot E78.2 MIXED HYPERLIPIDEMIA 07/03/2017 BOYD BURNETT K Ot I10 ESSENTIAL (PRIMARY) HYPERTENSION 07/03/2017 MACIE BUCKLEY BOYD K Ot I25.10 ATHSCL HEART DISEASE OF [place] CORONARY 07/03/2017 DENIS BURNETTDITH K Ot Z82.49 FAMILY HX OF ISCHEM HEART DIS AND OTH DI 07/04/2017 DENIS BURNETTDITH K Ot E78.2 MIXED HYPERLIPIDEMIA 07/04/2017 MACIE BUCKLEY, BOYD K Ot I10 ESSENTIAL (PRIMARY) HYPERTENSION 07/04/2017 JOEL BURNETTTH K Ot I25.10 ATHSCL HEART DISEASE OF [place] CORONARY 07/04/2017 MACIE BUCKLEY BOYD K Ot I65.29 OCCLUSION AND STENOSIS OF UNSPECIFIED CA 07/11/2017 MACIE BUCKLEY BOYD K Ot E78.2 MIXED HYPERLIPIDEMIA 07/11/2017 MACIE BUCKLEY BOYD K Ot I10 ESSENTIAL (PRIMARY) HYPERTENSION 07/11/2017 MACIE BUCKLEY BOYD K Ot I25.10 ATHSCL HEART DISEASE OF [place] CORONARY 07/11/2017 MACIE BUCKLEY BOYD K Ot Z82.49 FAMILY HX OF ISCHEM HEART DIS AND OTH DI 07/17/2017 MACIE BUCKLEY BOYD K Ot E78.2 MIXED HYPERLIPIDEMIA 07/17/2017 MACIE BUCKLEY BOYD K Ot I10 ESSENTIAL (PRIMARY) HYPERTENSION 07/17/2017 MACIE BUCKLEY BOYD K Ot I25.10 ATHSCL HEART DISEASE OF [place] CORONARY 07/17/2017 MACIE BUCKLEY BOYD K Ot Z82.49 FAMILY HX OF ISCHEM HEART DIS AND OTH DI 07/17/2017 ALBANIA VIZCAINO APRN Ot K57.92 DVTRCLI OF INTEST, PART UNSP, W/O PERF O 07/30/2017 CAMPOS TURPIN, UNIQUE Gonzalez Ot M48.02 SPINAL STENOSIS, CERVICAL REGION 07/30/2017 CAMPOS TURPIN, UNIQUE Gonzalez Ot 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 08/08/2017 UNIQUE GASCA MD Ot M48.02 SPINAL STENOSIS, CERVICAL REGION 08/08/2017 UNIQUE GASCA MD Ot 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 08/18/2017 UNIQUE GASCA MD Ot M48.02 SPINAL STENOSIS, CERVICAL REGION 08/18/2017 UNIQUE GASCA MD Ot 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 08/19/2017 UNIQUE GASCA MD Ot M48.02 SPINAL STENOSIS, CERVICAL REGION 08/19/2017 UNIQUE GASCA MD Ot 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 08/31/2017 UNIQUE GASCA MD Ot M48.02 SPINAL STENOSIS, CERVICAL REGION 08/31/2017 UNIQUE GASCA MD Ot 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 06/07/2018 CAMPOS TURPIN, UNIQUE Gonzalez Ot 719.46 JOINT PAIN-L/LEG 06/07/2018 MAXI WRIGHTP Ot 723.1 CERVICALGIA 06/07/2018 MAXI WRIGHT MIX MILL TENDER Ot 723.0 CERVICAL SPINAL STENOSIS 06/07/2018 SANDEEP BAI MD Ot 272.4 HYPERLIPIDEMIA NEC/NOS 06/07/2018 SANDEEP BAI MD Ot 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 06/07/2018 SANDEEP BAI MD Ot 397.0 TRICUSPID VALVE DISEASE 06/07/2018 SANDEEP BAI MD Ot 401.9 HYPERTENSION NOS 06/07/2018 SANDEEP BAI MD Ot 416.8 CHR PULMON HEART DIS NEC 06/07/2018 SANDEEP BAI MD Ot 786.09 RESPIRATORY ABNORM NEC 06/07/2018 SANDEEP BAI MD Ot 786.50 CHEST PAIN NOS 06/07/2018 MAXI WRIGHT MIX MILL TENDER Ot 336.9 SPINAL CORD DISEASE NOS 06/07/2018 MAXI WRIGHTP Ot 722.10 LUMBAR DISC DISPLACEMENT 06/07/2018 MAXI WRIGHT MIX MILL TENDER Ot 723.1 CERVICALGIA 06/07/2018 MAXI WRIGHTP Ot 782.0 SKIN SENSATION DISTURB 06/07/2018 SANDEEP BAI MD Ot 272.4 HYPERLIPIDEMIA NEC/NOS 06/07/2018 SANDEEP BAI MD Ot 401.9 HYPERTENSION NOS 06/07/2018 SANDEEP BAI MD Ot 414.00 CORON ATHEROSCLER NOS TYPE VESSEL, NATIV 06/07/2018 SANDEEP BAI MD Ot 786.09 RESPIRATORY ABNORM NEC 06/07/2018 SANDEEP BAI MD Ot 786.50 CHEST PAIN NOS 06/07/2018 MAXI WRIGHTP Ot V76.12 OTH SCREEN MAMMO-MALIGN NEOPLASM OF TOY 06/07/2018 IMELDA VERDUZCO MD Ot M47.892 OTHER SPONDYLOSIS, CERVICAL REGION 06/07/2018 MAXI WRIGHT Ot Z12.31 ENCNTR SCREEN MAMMOGRAM FOR MALIGNANT NE 06/07/2018 RAJEEV PERKINS DO Ot M47.812 SPONDYLOSIS W/O MYELOPATHY OR RADICULOPA 06/07/2018 MAXI WRIGHT MIX MILL TENDER Ot I10 ESSENTIAL (PRIMARY) HYPERTENSION 06/07/2018 MAXI WRIGHT M[employer] MILL TENDER Ot M79.602 PAIN IN LEFT ARM 06/07/2018 MAXI WRIGHT M[employer] M[employer] TENDER Ot R51 HEADACHE 06/07/2018 ALBANIA VIZCAINO JOB SITE SUPERINTENDENT Ot Z12.31 ENCNTR SCREEN MAMMOGRAM FOR MALIGNANT NE 06/07/2018 ALBANIA VIZCAINO JOB SITE SUPERINTENDENT Ot K57.92 DVTRCLI OF INTEST, PART UNSP, W/O PERF O 06/07/2018 BOYD BURNETT Ot E78.2 MIXED HYPERLIPIDEMIA 06/07/2018 BOYD BURNETT Ot I10 ESSENTIAL (PRIMARY) HYPERTENSION 06/07/2018 BOYD BURNETT Ot I25.10 ATHSCL HEART DISEASE OF [place] CORONARY 06/07/2018 BOYD BURNETT Ot Z82.49 FAMILY HX OF ISCHEM HEART DIS AND OTH DI 06/07/2018 BOYD BURNETT Ot E78.2 MIXED HYPERLIPIDEMIA 06/07/2018 BOYD BURNETT Ot I10 ESSENTIAL (PRIMARY) HYPERTENSION 06/07/2018 BOYD BURNETT Ot I25.10 ATHSCL HEART DISEASE OF [place] CORONARY 06/07/2018 BOYD BURNETT Ot Z82.49 FAMILY HX OF ISCHEM HEART DIS AND OTH DI 06/07/2018 BOYD BURNETT Ot E78.2 MIXED HYPERLIPIDEMIA 06/07/2018 BOYD BURNETT Ot I10 ESSENTIAL (PRIMARY) HYPERTENSION 06/07/2018 BOYD BURNETT Ot I25.10 ATHSCL HEART DISEASE OF [place] CORONARY 06/07/2018 BOYD BURNETT Ot I65.29 OCCLUSION AND STENOSIS OF UNSPECIFIED CA 06/07/2018 CAMPOS TURPIN, UNIQUE Gonzalez Ot M48.02 SPINAL STENOSIS, CERVICAL REGION 06/07/2018 CAMPOS TURPIN, UNIQUE Gonzalez Ot 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 06/11/2018 RUSSEL TURPIN, RUBY Avilez Ot M19.072 PRIMARY OSTEOARTHRITIS, LEFT ANKLE AND F 06/11/2018 RUBY GOODE MD, Ot M24.272 DISORDER OF LIGAMENT, LEFT ANKLE 06/11/2018 RUBY GOODE MD, Ot M65.862 OTHER SYNOVITIS AND TENOSYNOVITIS, LEFT 06/11/2018 RUBY GOODE MD, Ot M76.822 POSTERIOR TIBIAL TENDINITIS, LEFT LEG 06/11/2018 RUBY GOODE MD, Ot S86.812A STRAIN OF MUSC/TEND AT LOWER LEG LEVEL, 12/05/2018 SANDEEP BAI MD, Ot E78.5 HYPERLIPIDEMIA, UNSPECIFIED 12/05/2018 SANDEEP BAI MD, Ot I08.3 COMB RHEUMATIC DISORD OF MITRAL, AORTIC 12/05/2018 SANDEEP BAI MD, Ot I10 ESSENTIAL (PRIMARY) HYPERTENSION 12/05/2018 SANDEEP BAI MD, Ot I25.10 ATHSCL HEART DISEASE OF [place] CORONARY 12/05/2018 SANDEEP BAI MD, Ot R06.02 SHORTNESS OF BREATH 02/19/2019 FRANCINE LIN MD Ot Z01.818 ENCOUNTER FOR OTHER PREPROCEDURAL EXAMIN 02/22/2019 FRANCINE LIN MD, Ot Z01.818 ENCOUNTER FOR OTHER PREPROCEDURAL EXAMIN 02/22/2019 FRANCINE LIN MD, Ot Z01.818 ENCOUNTER FOR OTHER PREPROCEDURAL EXAMIN 02/28/2019 FRANCINE LIN MD, Ot Z01.818 ENCOUNTER FOR OTHER PREPROCEDURAL EXAMIN Procedures There is no data. Results Test Result Range Automated blood complete blood count (hemogram) panel - 02/20/17 13:00 Blood leukocytes automated count (number/volume) 6.9 10*3/uL 4.3-11.0 Blood erythrocytes automated count (number/volume) 4.99 10*6/uL 4.35-5.85 Venous blood hemoglobin measurement (mass/volume) 15.3 g/dL 11.5-16.0 Blood hematocrit (volume fraction) 46 % 35-52 Automated erythrocyte mean corpuscular volume 92 [foz_us] 80-99 Automated erythrocyte mean corpuscular hemoglobin (mass per erythrocyte) 31 pg 25-34 Automated erythrocyte mean corpuscular hemoglobin concentration measurement (mass/volume) 33 g/dL 32-36 Automated erythrocyte distribution width ratio 13.1 % 10.0- 14.5 Automated blood platelet count (count/volume) 217 10*3/uL 130-400 Automated blood platelet mean volume measurement 11.2 [foz_us] 7.4-10.4 Comprehensive metabolic panel - 02/20/17 13:00 Serum or plasma sodium measurement (moles/volume) 142 mmol/L 135-145 Serum or plasma potassium measurement (moles/volume) 3.5 mmol/L 3.6-5.0 Serum or plasma chloride measurement (moles/volume) 108 mmol/L 98-107 Carbon dioxide 27 mmol/L 21-32 Serum or plasma anion gap determination (moles/volume) 7 mmol/L 5-14 Serum or plasma urea nitrogen measurement (mass/volume) 22 mg/dL 7-18 Serum or plasma creatinine measurement (mass/volume) 0.77 mg/dL 0.60-1.30 Serum or plasma urea nitrogen/creatinine mass ratio 29 0- 20 Serum or plasma creatinine measurement with calculation of estimated glomerular filtration rate > NRG Serum or plasma glucose measurement (mass/volume) 85 mg/dL 70-105 Serum or plasma calcium measurement (mass/volume) 9.6 mg/dL 8.5-10.1 Serum or plasma total bilirubin measurement (mass/volume) 0.4 mg/dL 0.1-1.0 Serum or plasma alkaline phosphatase measurement (enzymatic activity/volume) 65 U/L 40-136 Serum or plasma aspartate aminotransferase measurement (enzymatic activity/volume) 57 U/L 5-34 Serum or plasma alanine aminotransferase measurement (enzymatic activity/volume) 70 U/L 0-55 Serum or plasma protein measurement (mass/volume) 7.3 g/dL 6.4-8.2 Serum or plasma albumin measurement (mass/volume) 3.9 g/dL 3.2-4.5 Comprehensive metabolic panel - 06/16/17 09:00 Serum or plasma sodium measurement (moles/volume) 142 mmol/L 135-145 Serum or plasma potassium measurement (moles/volume) 3.8 mmol/L 3.6-5.0 Serum or plasma chloride measurement (moles/volume) 108 mmol/L 98-107 Carbon dioxide 25 mmol/L 21-32 Serum or plasma anion gap determination (moles/volume) 9 mmol/L 5-14 Serum or plasma urea nitrogen measurement (mass/volume) 19 mg/dL 7-18 Serum or plasma creatinine measurement (mass/volume) 0.81 mg/dL 0.60-1.30 Serum or plasma urea nitrogen/creatinine mass ratio 23 NRG Serum or plasma creatinine measurement with calculation of estimated glomerular filtration rate > NRG Serum or plasma glucose measurement (mass/volume) 95 mg/dL 70-105 Serum or plasma calcium measurement (mass/volume) 9.6 mg/dL 8.5-10.1 Serum or plasma total bilirubin measurement (mass/volume) 0.6 mg/dL 0.1-1.0 Serum or plasma alkaline phosphatase measurement (enzymatic activity/volume) 57 U/L 40-136 Serum or plasma aspartate aminotransferase measurement (enzymatic activity/volume) 31 U/L 5-34 Serum or plasma alanine aminotransferase measurement (enzymatic activity/volume) 31 U/L 0-55 Serum or plasma protein measurement (mass/volume) 6.8 g/dL 6.4-8.2 Serum or plasma albumin measurement (mass/volume) 3.7 g/dL 3.2-4.5 Encounters ACCT No. Visit Date/Time Discharge Status Pt. Type Provider Facility Loc./Unit Complaint [id number] 02/22/2019 11:30:00 02/22/2019 12:18:00 DIS Outpatient RILEY TURPIN, FRANCINE Flores [facility] PREOP COLONOSCOPY [id number] 12/03/2018 09:27:00 12/03/2018 23:59:59 CLS Outpatient BHUMIKA TURPIN, SANDEEP Oneil [facility] CARD CORONARY ARTERIOSCLEROSIS [id number] 06/08/2018 12:52:00 06/08/2018 23:59:59 CLS Outpatient RUBY GOODE MD [facility] RAD POSTERIOR TIBIAL TENDINITIS LEFT LEG [id number] 07/24/2017 08:41:00 07/24/2017 23:59:59 CLS Outpatient UNIQUE GASCA MD [facility] RAD NECK PAIN [id number] 06/28/2017 07:33:00 06/28/2017 23:59:59 CLS Outpatient BOYD BURNETT [facility] CARD I65.29 CAROTID ARTERY STENOSIS [id number] 06/27/2017 11:30:00 06/27/2017 23:59:59 CLS Outpatient BOYD BRUNETT [facility] CARD I65.29 CAROTID ARTERY STENOSIS [id number] 06/16/2017 08:45:00 06/16/2017 23:59:59 CLS Outpatient BOYD BURNETT [facility] LAB I65.29 [id number] 02/20/2017 12:32:00 02/20/2017 23:59:59 CLS Outpatient ALBANIA VIZCAINO APRN [facility] SDC DIVERTICULITIS [id number] 12/01/2016 12:52:00 12/01/2016 23:59:59 CLS Outpatient ALBANIA VIZCAINO APRN [facility] RAD SCREENING [id number] 03/14/2016 10:11:00 03/14/2016 23:59:59 CLS Outpatient MAXI WRIGHT [facility] CARD HTN,L ARM PAIN,HEADACHE [id number] 01/22/2016 11:57:00 01/22/2016 13:00:00 DIS Outpatient IMELDA VERDUZCO MD [facility] CARD SPONDYLOSIS [id number] 12/25/2015 08:41:00 12/25/2015 10:14:00 DIS Outpatient IMELDA VERDUZCO MD [facility] CARD SPONDYLOSIS [id number] 12/04/2015 13:00:00 12/04/2015 13:24:00 DIS Outpatient RUDY MINER MD [facility] PREOP SCREENING,GERD [id number] 11/10/2015 09:08:00 11/10/2015 23:59:59 CLS Outpatient RAJEEV PERKINS DO [facility] RAD ARTHROSISIS [id number] 10/30/2015 10:24:00 10/30/2015 23:59:59 CLS Outpatient MAXI WRIGHT [facility] RAD SCREENING [id number] 10/02/2015 13:14:00 10/02/2015 23:59:59 CLS Outpatient IMELDA VERDUZCO MD [facility] RAD CERVICALGIA [id number] 09/04/2015 08:06:00 09/04/2015 09:07:00 DIS Outpatient LUBA TURPIN, IMELDA Oneil [facility] CARD DISC DISORDER W/RADICULOPATHY, CERVICOTHRACIC [id number] 09/22/2014 08:00:00 09/22/2014 23:59:59 CLS Outpatient SANDEEP BAI MD [facility] CARD CAD,CP,HTN,HLP [id number] 08/11/2014 14:58:00 08/11/2014 23:59:59 CLS Outpatient MAXI WRIGHT [facility] RAD SCREENING [id number] 03/27/2014 14:06:00 03/27/2014 15:57:00 DIS Emergency ALEXANDRIA PICKARD MD [facility] ER FALL/HEAD INJURY [id number] 03/03/2014 11:59:00 03/03/2014 12:11:00 DIS Outpatient SANDEEP BAI MD [facility] CR STENT [id number] 11/04/2013 08:15:00 11/04/2013 23:59:59 CLS Outpatient RIOS TURPIN FACC, WARNER FACP CCDS [facility] CATH CP,DYSPENA,HTN,HLP [id number] 11/01/2013 13:09:00 11/01/2013 23:59:59 CLS Outpatient SANDEEP BAI MD [facility] CARD CP,DYSPENA,HTN,HLP [id number] 10/21/2013 09:58:00 10/21/2013 23:59:59 CLS Outpatient MAXI WRIGHTP [facility] RAD CORD COMPRESSION [id number] 10/03/2013 12:40:00 10/03/2013 23:59:59 CLS Outpatient MAXI WRIGHTP [facility] RAD NECK PAIN,NUMBNESS BILAT ARMS [id number] 09/30/2013 11:06:00 09/30/2013 23:59:59 CLS Outpatient MAXI WRIGHTP [facility] RAD NECK PAIN [id number] 06/19/2013 13:11:00 06/19/2013 23:59:59 CLS Outpatient CAMPOS TURPIN, UNIQUE Gonzalez [facility] RAD LEFT KNEE PAIN [id number] 03/08/2019 07:58:00 ACT Outpatient FRANCINE LIN MD [facility] ENDO SCREENING [id number] 10/29/2012 15:17:00 Document Registration [id number] 08/12/2014 02:16:49 ACT Document Registration [id number] 06/26/2017 23:27:18 06/26/2017 23:59:59 CLS Outpatient
== END 2019-03-08 10:55 | disposition home or self-care (01) ==
LOC: ENDO 07:58
PROVIDERS: ATTEND Internal Medicine
DX: Z12.11 Encounter for screening for malignant neoplasm of colon (principal); K63.5 Polyp of colon; K57.30 Diverticulosis of large intestine without perforation or abscess without bleeding; K58.2 Mixed irritable bowel syndrome; Z83.79 Family history of other diseases of the digestive system; I25.10 Atherosclerotic heart disease of native coronary artery without angina pectoris; Z95.5 Presence of coronary angioplasty implant and graft; Z96.651 Presence of right artificial knee joint; G47.33 Obstructive sleep apnea (adult) (pediatric); K21.9 Gastro-esophageal reflux disease without esophagitis; Z79.82 Long term (current) use of aspirin; Z79.899 Other long term (current) drug therapy

== ENCOUNTER → 2019-07-15 | Outpatient (CLI) | payer MEDICARE ==
[~2019-07-15] VITALS: Ht 154 cm; Wt 72.0 kg
[~2019-07-15] MED LIST changes: +CATHETER FLUSH 10 ML SYR IV PRN; +REGADENOSON 0.4 MG/5 ML SYR (LEXISCAN) IV ONE
[2019-07-15 09:33] VITALS: BP 173/77
[2019-07-15 09:40] VITALS: BP 190/72
--- NOTE | 2019-07-15 12:23 | STRESS TEST ---
DATE OF SERVICE: 07/15/2019 LEXISCAN MYOVIEW STRESS TEST REPORT REFERRING PHYSICIAN: Dr. Melba Goldman. Baseline heart rate is 62. Baseline blood pressure 173/77. Baseline EKG is sinus rhythm with no ischemic changes. In summary, the patient was injected with 10.54 mCi of technetium-99 Myoview and the resting images were obtained. Then, the patient received 0.4 mg of Lexiscan, followed by 30.1 mCi of technetium-99 Myoview. Throughout the test, there were no EKG changes. The resting and stress images were reviewed and compared in the short axis, horizontal long axis, and vertical long axis views. Review of the images showed good radiotracer uptake with no significant ischemia or infarction. SSS is 1, SDS 1, TID value 1.18. On the gated images, the left ventricle appeared to be normal size with normal contractility. Calculated ejection fraction 51%. IN CONCLUSION: 1. The patient tolerated Lexiscan well. 2. No significant ischemia or infarction on SPECT images. 3. Normal left ventricular size with normal contractility. Calculated ejection fraction 51%. Job ID: [id number] DocumentID: [id number] Dictated Date: 07/15/2019 11:50:45 Net Development Manager Date: 07/15/2019 12:22:41 Dictated By: SANDEEP BAI MD
== END ==
LOC: CARD 08:13
PROVIDERS: ATTEND Internal Medicine Cardiovascular Disease
DX: I25.10 Atherosclerotic heart disease of native coronary artery without angina pectoris (principal); I10 Essential (primary) hypertension
CPT/HCPCS: 78452; 93017

== ENCOUNTER → 2020-04-28 | Outpatient (CLI) | payer MEDICARE ==
[~2020-04-28] MED LIST changes: +ACHYD1T PO; -CATHETER FLUSH 10 ML SYR IV PRN; -HYDR-3820 PO; -REGADENOSON 0.4 MG/5 ML SYR (LEXISCAN) IV ONE; -TRAZ-222 PO; +TRZ50T PO
--- NOTE | 2020-04-28 19:34 | Diagnostic Imaging Report ---
INDICATION: Right flank pain. TECHNIQUE: Single supine view of the abdomen at 04:38 p.m. CORRELATION STUDY: None. FINDINGS: There is moderate severity stool retention within the colon. No evidence of large fecal impaction. Gas at the level of the rectum. No abnormally dilated loops of bowel or findings to suggest high-degree obstruction. Decompressive laminectomies at the L3 through L5 level with posterior fusion hardware also present. Minimal leftward curvature of the lumbar spine. SI joints are unremarkable. IMPRESSION: 1. Nonobstructed appearing bowel gas pattern with some pfse-sc-bneustac severity stool retention. Dictated on workstation # [id number]
== END ==
LOC: RAD 16:30
PROVIDERS: ATTEND Nurse Practitioner Family
DX: K59.00 Constipation, unspecified (principal)
CPT/HCPCS: 74018

== ENCOUNTER 2020-09-11 13:39 | Outpatient (CLI) | payer MEDICARE ==
[~2020-09-11] VITALS: Ht 154 cm; Wt 79.0 kg
[~2020-09-11 13:39] MED LIST changes: +ALPR.25T PO
[2020-09-11 14:13] VITALS: BP 137/87
[2020-09-11] MEDS ORDERED: VANCOMYCIN 1 GM/NS 250 ML IVPB IV NR ×2 (14:30)
--- NOTE | 2020-09-11 15:52 | Diagnostic Imaging Report ---
PROCEDURE: CT neck soft tissue without contrast. TECHNIQUE: Multiple contiguous axial images were obtained through the neck without the use of intravenous contrast. Auto Exposure Controls were utilized during the CT exam to meet ALARA standards for radiation dose reduction. INDICATION: Right facial swelling. COMPARISON: None. FINDINGS: No mass or fluid collection is identified. No cervical lymphadenopathy. There is mild stranding in the right parotid gland which is mildly prominent in size compared to the contralateral side. No sialoliths are identified. The floor of the mouth, tongue base, epiglottis and retropharyngeal spaces are unremarkable. Moderate atherosclerotic calcifications in the carotid bifurcations, greater on the right. No large pharyngeal or laryngeal mass is identified on this noncontrast exam. The thyroid and submandibular glands are unremarkable. The orbits and visualized intracranial contents are negative. Paranasal sinuses and mastoids are clear. Skull base is intact. No acute findings in the cervical spine. There are moderate degenerative endplate changes at C6-C7. Lung apices are clear. IMPRESSION: 1. Mild stranding in the right parotid gland which is also mildly enlarged compared to the contralateral side. Findings are suspicious for parotiditis. No sialolith is identified. 2. No mass, lymphadenopathy or fluid collection is identified in the neck on this noncontrast exam. Dictated by: Dictated on workstation # [id number]
== END 2020-09-11 16:45 ==
LOC: SDC 13:39
PROVIDERS: ATTEND Nurse Practitioner Family
DX: L03.211 Cellulitis of face (principal); K11.8 Other diseases of salivary glands
CPT/HCPCS: 36415; 70490; 86735; 87798

== ENCOUNTER → 2020-12-07 | Outpatient (CLI) | payer MEDICARE ==
--- NOTE | 2020-12-07 12:17 | Diagnostic Imaging Report ---
INDICATION: Routine screening. Comparison is made with prior mammogram 12/01/2016 and 10/30/2015. 2-D and 3-D bilateral screening mammography was performed with CAD. Scattered fibroglandular densities are identified bilaterally. The parenchymal pattern is stable. There are benign calcifications bilaterally. No mass or malignant appearing microcalcifications are seen. Axillae are unremarkable. IMPRESSION: BI-RADS Category 2 No mammographic features suspicious for malignancy are identified. ACR BI-RADS Category 2: Benign findings. Result letter will be mailed to the patient. Note: At least 10% of breast cancer is not imaged by mammography. Dictated by: Dictated on workstation # [id number]
== END ==
LOC: RAD 11:00
PROVIDERS: ATTEND Nurse Practitioner Family
DX: Z12.31 Encounter for screening mammogram for malignant neoplasm of breast (principal)
CPT/HCPCS: 77063; 77067

== ENCOUNTER → 2021-02-24 | Outpatient (CLI) | payer MEDICARE ==
--- NOTE | 2021-02-24 09:37 | Diagnostic Imaging Report ---
Indication: Hypertension Grayscale imaging of the kidneys was performed. Color Doppler velocity and spectral waveform analysis of the renal arteries was performed. Both kidneys measure approximately 9.5 cm in length. Cortex is well-maintained bilaterally. There is no mass, calculus or hydronephrosis seen on either side. Color Doppler velocity and spectral waveform analysis shows normal velocities and waveforms of the renal arteries with no evidence of any hemodynamically significant renal artery stenosis. IMPRESSION: No abnormality is seen. Dictated by: Dictated on workstation # [id number]
== END ==
LOC: RAD 07:00
PROVIDERS: ATTEND Nurse Practitioner Family
DX: I10 Essential (primary) hypertension (principal)
CPT/HCPCS: 76770; 93975

== ENCOUNTER → 2021-03-04 | Outpatient (CLI) | payer MEDICARE | LOC: CARD 14:00 | PROVIDERS: ATTEND Internal Medicine Cardiovascular Disease | DX: I08.0 Rheumatic disorders of both mitral and aortic valves (principal); I11.9 Hypertensive heart disease without heart failure | CPT/HCPCS: 93306 ==

== ENCOUNTER → 2021-06-11 | Outpatient (CLI) | payer MEDICARE ==
--- NOTE | 2021-06-11 15:38 | Diagnostic Imaging Report ---
INDICATION: Ulnar-sided arm pain. TIME OF EXAM: 2:03 PM 2 views of the forearm were obtained. Alignment at the elbow and wrist appears normal. The radius and ulna appear intact. There does appear to be ulna minus variant. No fractures are seen. IMPRESSION: No acute bony abnormality is detected. Dictated by: Dictated on workstation # [id number]
== END ==
LOC: RAD 13:45
PROVIDERS: ATTEND Nurse Practitioner Family
DX: M25.532 Pain in left wrist (principal); M79.632 Pain in left forearm
CPT/HCPCS: 73090

== ENCOUNTER 2021-06-28 05:43 | Outpatient (CLI) | payer MEDICARE ==
[~2021-06-28] VITALS: Ht 154.9 cm; Wt 72.7 kg
[2021-06-29] MEDS ORDERED: CITA20TA9 PO (12:29)
[2021-06-29] MEDS ORDERED: DILT180C54 PO (12:29)
[2021-06-29] MEDS ORDERED: CLON1PAT33 TD (12:29)
[2021-06-29] MEDS ORDERED: CALC-250 PO (12:29)
== END 2021-06-29 12:38 | disposition home or self-care (01) ==
LOC: PREOP 05:43
PROVIDERS: ATTEND Specialist
DX: Z01.818 Encounter for other preprocedural examination (principal)

== ENCOUNTER 2021-07-02 07:24 | Day surgery (SDC) | payer MEDICARE ==
[~2021-07-02] VITALS: Ht 154.9 cm; Wt 72.7 kg
[~2021-07-02 07:24] MED LIST changes: +CALC-250 PO; +CITA20TA9 PO; +CLON1PAT33 TD; +DILT180C54 PO
[2021-07-02] MEDS ORDERED: MIDAZOLAM 2 MG/2 ML (VERSED) VIAL ONE (07:42)
[2021-07-02 07:45] VITALS: BP 148/86
[2021-07-02] MEDS ORDERED: MOXIFLOXACIN OPHTH SOLN 5 MG/ML 0.3 ML SYRINGE OP ONE (07:45)
[2021-07-02] MEDS ORDERED: POVIDONE (BETADINE) OPHTH SOLN 5% 30 ML OP ONE (07:45)
[2021-07-02] MEDS ORDERED: TIMOLOL MALEATE 0.5% 5 ML (TIMOPTIC) BTL OU PRN (07:45)
[2021-07-02] MEDS ORDERED: LIDOCAINE PF 1% 2 ML VIAL IR PRN (07:45)
[2021-07-02] MEDS: TETRACAINE 0.5% OPHTH SOLN 4 ML BTL (SINGLE DOSE ONLY) OU PRN ×4 (07:48→08:20)
[2021-07-02] MEDS: TROPICAMIDE 1% OPH SOLN (MYDRIACYL) 15 ML BTL OP SCH ×3 (07:58→08:20)
[2021-07-02] MEDS: PHENYLEPHRINE 10% OPHTH (NEO-SYN) 5 ML BTL OU SCH ×3 (07:58→08:20)
--- NOTE | 2021-07-02 08:36 | Ophthalmologist Pre-Op Note ---
Pre-Operative Progress Note H&P Reviewed The H&P was reviewed, patient examined and no changes noted. Date H&P Reviewed: Jul 02, 2021 Time H&P Reviewed: 08:36 Pre-Op Dx Cataract, Right Eye ARISTEO RICHTER MD Jul 02, 2021 08:36
[2021-07-02] MEDS ORDERED: acetaZOLAMIDE ER 500 MG CAP (DIAMOX SEQUELS) PO ONE (09:00)
--- NOTE | 2021-07-02 09:02 | Ophthalmology Operative Report ---
Cataract removal/placement IOL PREOPERATIVE DIAGNOSIS: Cataract Right Eye POSTOPERATIVE DIAGNOSIS: Cataract Right Eye PROCEDURE: Cataract removal and placement of posterior chamber implant, right eye SURGEON: Cezar Richter ANESTHESIA: Topical with sedation COMPLICATIONS: None ESTIMATED BLOOD LOSS: Minimal DESCRIPTION OF PROCEDURE: After proper informed consent was obtained, the patient, a 75 female, was taken to the Operating Room and the right eye was anesthetized with tetracaine. The right eye was then prepped and draped in the usual manner. A wire lid speculum was placed. A paracentesis was made at the left hand position. Preservative free lidocaine was injected into the anterior chamber followed by viscoelastic. A clear corneal incision was made in the temporal position. A capsulorrhexis was preformed and the central nuclear and cortical material were removed. The posterior capsule was polished and Kareem 18.0 AU00T0 IOL was placed into the capsular bag. The residual viscoelastic was aspirated and balanced saline solution was injected into the anterior chamber. Moxifloxacin was injected into the anterior chamber. The wound was checked and found to be water tight. The patient tolerated the procedure well without complications. CEZAR RICHTER MD Jul 02, 2021 09:02
[2021-07-02 09:25] VITALS: BP 147/86
--- NOTE | 2021-07-02 12:24 | Anesthesia-General Post-Op ---
MAC Patient Condition Mental Status/LOC: Same as Preop Cardiovascular: Satisfactory Nausea/Vomiting: Absent Respiratory: Satisfactory Pain: Controlled Complications: Absent Post Op Complications Complications None Follow Up Care/Instructions Patient Instructions None needed. Anesthesiology Discharge Order Discharge Order Patient is doing well, no complaints, stable vital signs, no apparent adverse anesthesia problems. No complications reported per nursing. ELICIA MOFFETT CRNA Jul 02, 2021 12:24
== END 2021-07-02 09:25 | disposition home or self-care (01) ==
LOC: SDC 07:24
PROVIDERS: ATTEND Specialist
DX: H25.11 Age-related nuclear cataract, right eye (principal); I10 Essential (primary) hypertension; G47.33 Obstructive sleep apnea (adult) (pediatric); K21.9 Gastro-esophageal reflux disease without esophagitis; E07.9 Disorder of thyroid, unspecified; F32.A Depression, unspecified; I25.2 Old myocardial infarction; Z79.899 Other long term (current) drug therapy; Z79.890 Hormone replacement therapy
CPT/HCPCS: 66984; V2632

== ENCOUNTER 2021-07-16 06:08 | Day surgery (SDC) | payer MEDICARE ==
[~2021-07-16] VITALS: Ht 154.9 cm; Wt 72.7 kg
[2021-07-16] MEDS ORDERED: LIDOCAINE PF 1% 2 ML VIAL IR PRN (06:15)
[2021-07-16] MEDS ORDERED: MOXIFLOXACIN OPHTH SOLN 5 MG/ML 0.3 ML SYRINGE OP ONE (06:15)
[2021-07-16] MEDS ORDERED: POVIDONE (BETADINE) OPHTH SOLN 5% 30 ML OP ONE (06:15)
[2021-07-16] MEDS ORDERED: TIMOLOL MALEATE 0.5% 5 ML (TIMOPTIC) BTL OU PRN (06:15)
[2021-07-16] MEDS: TETRACAINE 0.5% OPHTH SOLN 4 ML BTL (SINGLE DOSE ONLY) OU PRN ×4 (06:18→06:36)
[2021-07-16] MEDS: PHENYLEPHRINE 10% OPHTH (NEO-SYN) 5 ML BTL OU SCH ×3 (06:26→06:36)
[2021-07-16] MEDS: TROPICAMIDE 1% OPH SOLN (MYDRIACYL) 15 ML BTL OP SCH ×3 (06:26→06:36)
[2021-07-16 06:27] VITALS: BP 171/78
[2021-07-16] MEDS ORDERED: MIDAZOLAM 2 MG/2 ML (VERSED) VIAL ONE (07:17)
--- NOTE | 2021-07-16 07:26 | Ophthalmologist Pre-Op Note ---
Pre-Operative Progress Note H&P Reviewed The H&P was reviewed, patient examined and no changes noted. Date H&P Reviewed: Jul 16, 2021 Time H&P Reviewed: 07:26 Pre-Op Dx Cataract, Left Eye ARISTEO RICHTER MD Jul 16, 2021 07:26
--- NOTE | 2021-07-16 07:48 | Ophthalmology Operative Report ---
Cataract removal/placement IOL PREOPERATIVE DIAGNOSIS: Cataract Left Eye POSTOPERATIVE DIAGNOSIS: Cataract Left Eye PROCEDURE: Cataract removal and placement of posterior chamber implant, left eye SURGEON: Cezar Richter ANESTHESIA: Topical with sedation COMPLICATIONS: None ESTIMATED BLOOD LOSS: Minimal DESCRIPTION OF PROCEDURE: After proper informed consent was obtained, the patient, a 75 female, was taken to the Operating Room and the left eye was anesthetized with tetracaine. The left eye was then prepped and draped in the usual manner. A wire lid speculum was placed. A paracentesis was made at the left hand position. Preservative free lidocaine was injected into the anterior chamber followed by viscoelastic. A clear corneal incision was made in the temporal position. A capsulorrhexis was preformed and the central nuclear and cortical material were removed. The posterior capsule was polished and an Kareem 19.5 AU00T0 was placed into the capsular bag. The residual viscoelastic was aspirated and balanced saline solution was injected into the anterior chamber. Moxifloxacin was injected into the anterior chamber. The wound was checked and found to be water tight. The patient tolerated the procedure well without complications. CEZAR RICHTER MD Jul 16, 2021 07:48
[2021-07-16 07:56] VITALS: BP 164/76
[2021-07-16] MEDS ORDERED: acetaZOLAMIDE ER 500 MG CAP (DIAMOX SEQUELS) PO ONE (08:00)
--- NOTE | 2021-07-16 13:49 | Anesthesia-General Post-Op ---
MAC Patient Condition Mental Status/LOC: Same as Preop Cardiovascular: Satisfactory Nausea/Vomiting: Absent Respiratory: Satisfactory Pain: Controlled Complications: Absent Post Op Complications Complications None Follow Up Care/Instructions Patient Instructions None needed. Anesthesiology Discharge Order Discharge Order Patient was seen this morning after the procedure and she was doing well, no complaints, stable vital signs, no apparent adverse anesthesia problems. ALFRED BROWNE DO Jul 16, 2021 13:49
== END 2021-07-16 07:58 | disposition home or self-care (01) ==
LOC: SDC 06:08
PROVIDERS: ATTEND Specialist
DX: H25.12 Age-related nuclear cataract, left eye (principal); K21.9 Gastro-esophageal reflux disease without esophagitis; I10 Essential (primary) hypertension; G47.33 Obstructive sleep apnea (adult) (pediatric); F32.A Depression, unspecified; Z79.899 Other long term (current) drug therapy
CPT/HCPCS: 66984; V2632

== ENCOUNTER → 2022-04-19 | Outpatient (CLI) | payer MEDICARE ==
--- NOTE | 2022-04-19 19:04 | Diagnostic Imaging Report ---
Indication: Chronic neck pain. Time of Exam: 4:13 PM Curvature and alignment of the cervical spine is normal. There is significant degenerative disc disease at C5-C6 and C6-C7 levels with disc space narrowing and marginal spurring. Prevertebral tissues are normal. No fractures are seen. Odontoid views are somewhat limited but odontoid appears intact. IMPRESSION: Lower cervical spondylosis and facet arthropathy. No acute bony abnormality is detected. Dictated by: Dictated on workstation # [id number]
--- NOTE | 2022-04-19 19:04 | Diagnostic Imaging Report ---
Indication: Chronic low back pain. Time of Exam: 4:20 PM There is normal lordotic curvature. There are postoperative changes of posterior instrumented fusion with vertical stabilization rods and pedicle screws transfixing the L3-L5 levels. The hardware appears to be intact. Vertebral body heights are maintained. No acute compression fracture is seen. There is severe multilevel degenerative disc disease with significant disc space narrowing and marginal spurring at all levels. IMPRESSION: Postop and degenerative changes. No acute bony abnormality is detected. Dictated by: Dictated on workstation # [id number]
== END ==
LOC: RAD 15:54
PROVIDERS: ATTEND Nurse Practitioner Family
DX: M47.816 Spondylosis without myelopathy or radiculopathy, lumbar region (principal); M47.812 Spondylosis without myelopathy or radiculopathy, cervical region
CPT/HCPCS: 72040; 72100

== ENCOUNTER → 2022-04-26 | Outpatient (CLI) | payer MEDICARE ==
--- NOTE | 2022-04-26 18:11 | Diagnostic Imaging Report ---
PROCEDURE: MR imaging cervical spine without contrast. TECHNIQUE: Multiplanar, multisequence MR imaging of the cervical spine was performed without contrast. INDICATION: Neck pain. COMPARISON: July 24, 2017 and radiographs from April 19, 2022. FINDINGS: There is a very slight degenerative retrolisthesis of C6 on C7. Alignment is otherwise normal. Craniocervical junction relationships are maintained. The facets are normally aligned. There are no marrow signal changes present to suggest an acute osseous injury or suspicious marrow replacing lesion. There are multilevel endplate changes which are most advanced at the C6-C7 level where there is advanced disc space height loss and some fatty marrow endplate replacement. The visualized intracranial contents demonstrate no abnormality. The cervical cord is normal in caliber. There is no cord signal abnormality. There are no findings of an abnormal epidural process. At C2-C3, there is minimal disc bulging without significant stenosis. At C3-C4, there is mild spondylotic ridging and very slight disc bulging. There are small uncovertebral spurs, and there is also facet hypertrophy. There appears to be moderate narrowing of both of the neural foramina and minimal narrowing of the central canal. At C4-C5, spondylotic ridging and facet hypertrophy are present with mild narrowing of both neural foramina and mild narrowing of the central canal. At C5-C6, endplate ridging, disc bulging, facet arthropathy, and uncovertebral spurring are present. There is severe left and moderate right foraminal stenosis and moderate narrowing of the central canal. At C6-C7, there is advanced disc space height loss. There is endplate spurring and mild disc bulge. There is also facet arthropathy and uncovertebral spurring. There is moderate narrowing of the central canal. There is severe left and moderate right foraminal stenosis. At C6-C7, there is mild disc bulging with mild narrowing of the central canal. There are small uncovertebral spurs, and there are also hypertrophic facets. There is moderate left and there is severe right foraminal stenosis. At C7-T1, there is no significant canal stenosis. Facet arthropathy does, however, result in zyoeprpu-nl-eovwyj narrowing of both of the neural foramina. The soft tissues of the neck demonstrate no acute process. Vascular flow voids within the neck appear maintained. IMPRESSION: 1. Advanced multilevel cervical degenerative disc disease, facet arthropathy, and multilevel uncovertebral spurring. There is a slight degenerative retrolisthesis of C6 on C7. There are no findings of an acute osseous injury or suspicious marrow replacing lesion. 2. No cord signal abnormality or abnormal epidural process. 3. Variable degrees of stenosis throughout the cervical spine are detailed above level by level. Dictated by: Dictated on workstation # [id number]
--- NOTE | 2022-04-26 18:19 | Diagnostic Imaging Report ---
PROCEDURE: MRI lumbar spine. TECHNIQUE: Multiplanar, multisequence MRI of the lumbar spine was performed without contrast. INDICATION: Lumbar back pain with prior spinal fusion. COMPARISON: Radiographs from April 19, 2022. Correlation also made with prior MRI from October 21, 2013. FINDINGS: The patient is status post previous bipedicular posterior fusion of L3 through L5 with associated decompressive laminectomies. There is slight retrolisthesis of L1 on L2 and L2 on L3. There are advanced multilevel endplate changes present throughout the lumbar spine with disc space height loss and disc degeneration at all visualized levels. There are, however, no findings of an acute osseous injury or evidence of a suspicious marrow replacing lesion. The distal thoracic cord demonstrates no findings of cord signal abnormality. There is normal termination of the conus. The intrathecal nerve roots demonstrate no abnormal nerve root thickening or clumping. There are small disc bulges at T10-T11 and T11-T12 without findings of high-grade canal stenosis by sagittal imaging. There appears to be mild narrowing of the bilateral neural foramina. At T12-L1, there is a small disc bulge and mild facet hypertrophy with minimal narrowing of the central canal and slight effacement of the right lateral recess. There is mild left and jtsg-km-riypxndo right foraminal stenosis. At L1-L2, retrolisthesis, disc bulging, and endplate spurring as well as facet arthropathy result in moderate narrowing of the central canal and both lateral recesses. There is nuwkivcq-rx-pitkoz narrowing of both of the neural foramina. At L2-L3, endplate spurring, retrolisthesis, and mild disc bulging are present as well as mild residual facet arthropathy. The central canal and lateral recesses have been decompressed by prior laminectomy. There is severe right and moderate left foraminal stenosis. At the L3-L4 level, the central canal and lateral recesses appear widely decompressed, and there appears to be only veje-gb-hrqeclzj residual narrowing of the neural foramina. At L4-L5, central canal and lateral recesses are decompressed. No significant residual foraminal stenosis evident. At L5-S1, there is disc bulging. There is facet arthropathy and ligamentous thickening. There is no significant central canal stenosis. There is lfun-qw-yuecuncs left and mild right lateral recess stenosis. There is xmaynuxm-vr-lrbcdj far lateral right and severe far lateral left foraminal stenosis. The paraspinal soft tissues demonstrate paraspinal muscular atrophy. The aorta is normal in caliber. The kidneys appear nonobstructed. IMPRESSION: 1. Previous operative changes of posterior instrumented fusion of L3 through L5 with decompressive laminectomies. The central canal throughout the surgical levels appears widely decompressed. 2. Multilevel degenerative disc disease and facet arthropathy with disc space height loss and disc degeneration at all levels. There is a retrolisthesis of L1 on L2 and L2 on L3. 3. No findings of an acute osseous injury or suspicious marrow replacing lesion. 4. Variable degrees of apparent stenosis throughout the lumbar spine are detailed above level by level. Dictated by: Dictated on workstation # [id number]
== END ==
LOC: RAD 15:51
PROVIDERS: ATTEND Nurse Practitioner Family
DX: M47.812 Spondylosis without myelopathy or radiculopathy, cervical region (principal); M47.813 Spondylosis without myelopathy or radiculopathy, cervicothoracic region; M47.816 Spondylosis without myelopathy or radiculopathy, lumbar region; M47.817 Spondylosis without myelopathy or radiculopathy, lumbosacral region; M50.223 Other cervical disc displacement at C6-C7 level; M51.26 Other intervertebral disc displacement, lumbar region; M51.27 Other intervertebral disc displacement, lumbosacral region; M50.323 Other cervical disc degeneration at C6-C7 level; M51.36 Other intervertebral disc degeneration, lumbar region; M48.02 Spinal stenosis, cervical region; M48.03 Spinal stenosis, cervicothoracic region; M48.061 Spinal stenosis, lumbar region without neurogenic claudication; M48.07 Spinal stenosis, lumbosacral region; M43.16 Spondylolisthesis, lumbar region; Z98.1 Arthrodesis status
CPT/HCPCS: 72141; 72148

== ENCOUNTER → 2022-05-05 | Outpatient (CLI) | payer MEDICARE | LOC: CARD 14:29 | PROVIDERS: ATTEND Physician Assistant | DX: I11.9 Hypertensive heart disease without heart failure (principal); I08.0 Rheumatic disorders of both mitral and aortic valves | CPT/HCPCS: 93306 ==

== ENCOUNTER → 2022-05-23 | Outpatient (CLI) | payer MEDICARE ==
[~2022-05-23] MED LIST changes: +CATHETER FLUSH 10 ML SYR IVP PRN; +REGADENOSON 0.4 MG/5 ML SYR (LEXISCAN) IV ONE
[2022-05-23 09:38] VITALS: BP 177/108
--- NOTE | 2022-05-23 11:52 | Cardiology Stress Test Report ---
Stress Test Report Date of Procedure/Referring: Date of Procedure: May 23, 2022 PCP Unique Goldman MD Admitting Physician Admitting Physician: Attending Physician: Stephanie Zepeda Indications: CAD Baseline Heart Rate: 58 Baseline Blood Pressure: Blood Pressure Systolic: 177 Blood Pressure Diastolic: 108 Baseline Vitals Vital Signs Date Time Temp Pulse Resp B/P (MAP) Pulse Ox O2 Delivery O2 Flow Rate FiO2 05/23/22 09:38 58 16 177/108 (131) 96 Room Air Baseline EKG: Baseline EKG: NSR Summary After explaining the procedure to the patient, she signed a consent and then br ought to the stress nuclear laboratory. Patient received 0.4 mg Lexiscan for stress test, ECG, heart rate and blood pressure were monitored continuously. Resting and stress dose of radio tracer were injected, imaging was acquired and reviewed in short axis, horizontal long axis and vertical long axis views. TID: 1.12 SSS: 4 SDS: 1 EF: 59 1. Patient tolerated Lexiscan well 2. Baseline hypertension persisted during test 3. Breast attenuation with mild decrease uptake at the anteroapical segment with no significant reversibility. Overall there is no significant ischemia or infarction on SPECT images 4. Normal left ventricular size, ejection fraction 59% Copy Copies To 1: UNIQUE GOLDMAN MD, BASHAR J MD May 23, 2022 11:52
== END ==
LOC: CARD 08:15
PROVIDERS: ATTEND Physician Assistant
DX: I25.10 Atherosclerotic heart disease of native coronary artery without angina pectoris (principal)
CPT/HCPCS: 78452; 93017; A9502

== ENCOUNTER 2022-07-04 15:42 | Outpatient (CLI) | payer MEDICARE ==
[~2022-07-04] VITALS: Ht 157.4 cm; Wt 71.8 kg
[~2022-07-04 15:42] MED LIST changes: -CATHETER FLUSH 10 ML SYR IVP PRN; -REGADENOSON 0.4 MG/5 ML SYR (LEXISCAN) IV ONE
[2022-07-04] MEDS ORDERED: NEBI5TAB8 PO (16:31)
[2022-07-05] MEDS ORDERED: CLN.1T PO (16:20)
== END 2022-07-04 16:43 | disposition home or self-care (01) ==
LOC: PREOP 15:42
PROVIDERS: ATTEND Surgery
DX: Z01.818 Encounter for other preprocedural examination (principal)

== ENCOUNTER 2022-07-05 13:47 | Day surgery (SDC) | payer MEDICARE ==
[2022-07-05] VITALS (11 sets, daily range): BP systolic 117–157; BP diastolic 64–81
[~2022-07-05] VITALS: Ht 157.4 cm; Wt 71.8 kg
[2022-07-05] MEDS ORDERED: LACTATED RINGERS 1,000 ML IV PRN (14:00)
[2022-07-05] MEDS ORDERED: ONDANSETRON 4 MG/2 ML (SDV) Z0FRAN IV ONE (15:00)
[2022-07-05] MEDS ORDERED: BUP/EPI 0.5% 1:200,000 (MARCAINE) 10ML VIAL IJ ONE ×3 (15:50→16:31)
--- NOTE | 2022-07-05 16:09 | Progress Note-Pre Operative ---
Pre-Operative Progress Note Date of Available H&P: Jul 04, 2022 Date H&P Reviewed: Jul 05, 2022 Time H&P Reviewed: 16:09 History & Physical: H&P Reviewed, Patient Examed, No changes noted Pre-Operative Diagnosis: right axillary cyst DEVONTE SILVA DO Jul 05, 2022 16:09
[2022-07-05] MEDS ORDERED: ceFAZolin INJECTION 2,000 MG in NS (IVPB) 50 ML IV ONE (16:15)
[2022-07-05] MEDS ORDERED: CLN.1T PO (16:20)
[2022-07-05] MEDS ORDERED: ceFAZolin INJECTION 2,000 MG ONE (16:20)
[2022-07-05] MEDS ORDERED: SEVOFLURANE (ULTANE) 15 ML INHAL SOLN ONE (16:30)
[2022-07-05] MEDS ORDERED: ONDANSETRON 4 MG/2 ML (SDV) Z0FRAN ONE ×2 (16:30→17:18)
[2022-07-05] MEDS ORDERED: proPOfol 200 MG/20 ML (DIPRIVAN) VIAL IV ONE (16:30)
[2022-07-05] MEDS ORDERED: LIDOCAINE PF 2% 5 ML (XYLOCAINE) VIAL ONE (16:30)
[2022-07-05] MEDS ORDERED: fentaNYL INJ 100 MCG/2 ML AMP ONE (16:54)
[2022-07-05] MEDS ORDERED: ONDANSETRON 4 MG/2 ML (SDV) Z0FRAN IVP PRN (17:00)
[2022-07-05] MEDS ORDERED: fentaNYL INJ 100 MCG/2 ML AMP IVP ONE (17:00)
--- NOTE | 2022-07-07 04:00 | OPERATIVE REPORT ---
DATE OF SERVICE: 07/05/2022 PREOPERATIVE DIAGNOSIS: Right axillary cyst. POSTOPERATIVE DIAGNOSIS: Right axillary cyst. PROCEDURE: Excision of right axillary cyst, 3.5 x 2 cm. SURGEON: Devonte Morillo DO ANESTHESIA: General. ESTIMATED BLOOD LOSS: Minimal. SPECIMENS: None. INDICATIONS: The patient is a 76-year-old female with a right axillary cyst. She understands the risks and benefits of procedure and wishes to proceed. Consent was signed in the chart. DESCRIPTION OF PROCEDURE: The patient was taken to the operating suite, prepped and draped in sterile fashion. Timeout was performed. Local anesthetic was infiltrated around the area of the right axilla. A 15 blade scalpel was used to make an elliptical incision measuring 3.5 x 2 cm and cautery was used to dissect down through the skin and subcutaneous tissues until the area was completely excised. Overall, measurement 3.5 x 2 cm. The hemostasis was achieved. The skin was then closed using 3-0 Vicryl in subcuticular fashion and the skin was then closed with Skin Affix. The patient tolerated the procedure well without any complications. She was taken to recovery in stable condition. Job ID: [id number] DocumentID: [id number] Dictated Date: 07/06/2022 17:41:26 Director Dental Services Date: 07/07/2022 03:58:00 Dictated By: DEVONTE MORILLO DO
== END 2022-07-05 18:43 | disposition home or self-care (01) ==
LOC: SDC 13:47
PROVIDERS: ATTEND Surgery
DX: L72.8 Other follicular cysts of the skin and subcutaneous tissue (principal); K21.9 Gastro-esophageal reflux disease without esophagitis
CPT/HCPCS: 87081

== ENCOUNTER 2022-09-08 10:20 | Emergency (ER) | payer MEDICARE ==
[~2022-09-08] VITALS: Ht 154 cm; Wt 73.0 kg
[~2022-09-08 10:20] MED LIST changes: +CLN.1T PO
[2022-09-08 10:25] VITALS: BP 187/87
[2022-09-08] MEDS ORDERED: ASPIRIN 81 MG CHEW (CHILDREN'S ASA) PO ONE (11:00)
--- NOTE | 2022-09-08 11:04 | ED Chest Pain ---
General Chief Complaint: Chest Pain Stated Complaint: RESPIRATORY ILLNESS Nursing Triage Note: PT CO OF BEING SICK W RESP ILLNESS FOR APPROX 2 WEEKS STATES HAS BEEN ON AUGMENTIN AND PREDNISONE AND STILL SICK FEELING STATES STARTED HAVING CHEST PAIN THIS AM 5/[address] TO ED. STATES IS WEAK AND SOA. Source: patient Exam Limitations: no limitations (CE MARTIN) History of Present Illness Date Seen by Provider: Sep 08, 2022 Time Seen by Provider: 10:59 Initial Comments 76 F with PMH of HTN and previous LA 5 yrs ago presents with 2 week hx of productive cough w/ associated SOA and weakness and new onset chest pain that is described at sharp stabbing rated 5/10 and radiates to the left arm. Nothing worsens or improves the pain. Pt recently finished Augmentin therapy and steroid taper for URI from PCP with no relief. Pt claims she is SOA with both exertion and rest. Denies fever, chills, n/v, diarrhea, diaphoresis, lightheadedness, or sick contacts. Pt last saw Dr. Dickens "a couple months ago" and reported no new changes. Timing/Duration: other (2 weeks URI and 1 hour of CP) Severity/Quality: moderate Location: central Radiation: arms (left arm ) Activities at Onset: none Prior CP/Workup: cardiac cath, heart attack Associated Symptoms: No abdominal pain, No diaphoresis, No dizziness; fatigue; No fever/chills, No nausea/vomiting; shortness of breath (CE MARTIN) Allergies and Home Medications Allergies Coded Allergies: No Known Drug Allergies (Unverified , 07/04/22) Patient Home Medication List Home Medication List Reviewed: Yes (CE MARTIN) Home Medication List Reviewed: Yes (GO CASTRO MD) ALPRAZolam (Xanax Tablet) 0.25 Mg Tablet, 0.25 MG PO TID PRN for ANXIETY, (Reported) Entered as Reported by: DAYNE CARDOZO on 02/22/19 1217 Citalopram Hydrobromide (Citalopram HBr) 20 Mg Tablet, 20 MG PO DAILY, (Reported) Entered as Reported by: DAYNE CARDOZO on 06/29/21 1229 Clonidine (Clonidine TTS 1 Patch) 1 Each Patch.tdwk, 1 PATCH TD Q7D, (Reported) Entered as Reported by: DAYNE CARDOZO on 06/29/21 1229 Clonidine HCl (Clonidine HCl) Unknown Strength Tablet, Unknown Dose PO, (Reported) Entered as Reported by: Stephanie Zamorano on 07/05/22 1620 Diltiazem HCl (Cartia Xt) 180 Mg Cap.er.24h, 180 MG PO DAILY, (Reported) Entered as Reported by: DAYNE CARDOZO on 06/29/21 1229 Esomeprazole Magnesium (Esomeprazole Magnesium) 40 Mg Capsule.dr, 40 MG PO DAILY, (Reported) Entered as Reported by: DAYNE CARDOZO on 02/22/19 1217 Hydrochlorothiazide (Hydrochlorothiazide) 25 Mg Tablet, 25 MG PO DAILY, (Reported) Entered as Reported by: DAYNE CARDOZO on 02/22/19 1217 Hydrocodone Bit/Acetaminophen (HYDROcodone/APAP 10/325 TABLET) 1 Each Tablet, 1- 2 TAB PO Q6H PRN for PAIN-MODERATE, (Reported) Entered as Reported by: DAYNE CARDOZO on 02/22/19 1217 Levothyroxine Sodium (Levothyroxine Sodium) 112 Mcg Tablet, 112 MCG PO DAILY, (Reported) Entered as Reported by: DAYNE CARDOZO on 02/22/19 121 Nebivolol HCl (Bystolic) 20 Mg Tablet, 20 MG PO DAILY, (Reported) Entered as Reported by: DAYNE CARDOZO on 02/22/19 1217 Nebivolol HCl (Bystolic) 5 Mg Tablet, 5 MG PO DAILY, (Reported) Entered as Reported by: SULAIMAN ARMIJO on 07/04/22 1631 Piroxicam (Piroxicam) 20 Mg Capsule, 20 MG PO DAILY, (Reported) Entered as Reported by: DAYNE CARDOZO on 02/22/19 121 Trazodone HCl (Trazodone HCl) 50 Mg Tablet, 100 MG PO HS, (Reported) Entered as Reported by: DAYNE CARDOZO on 02/22/19 121 Review of Systems Review of Systems Constitutional: No chills, No diaphoresis; weakness EENTM: No Blurred Vision, No Throat Pain Respiratory: Cough, Shortness of Air Cardiovascular: Chest Pain, Edema; Denies Lightheadedness Gastrointestinal: Denies Abdominal Pain, Denies Nausea, Denies Vomiting Genitourinary: No Symptoms Reported Musculoskeletal: other (left UE pain) Skin: lesions (BL LE ecchymosis ) Psychiatric/Neurological: No Symptoms Reported Endocrine: No Symptoms Reported Hematologic/Lymphatic: No Symptoms Reported, Other (unknwn condition. Seeing liquid compounder next week) (CE MARTIN) Past Wooscab-Xqzway-Xsviyh Hx Patient Social History Tobacco Use?: No Substance use?: No Alcohol Use?: No Pt feels they are or have been: No (CE MARTIN) Immunizations Up To Date Influenza Vaccine Up-to-Date: Yes; Up-to-Date First/Initial COVID19 Vaccinat: 2020 Second COVID19 Vaccination Kamaljit: 2021 Third COVID19 Vaccination Date: 2021 (CE MARTIN) Seasonal Allergies Seasonal Allergies: No (CE MARTIN) Past Medical History Surgery/Hospitalization HX: HEART STENT Surgeries: Yes (R TKR, ROTATOR CUFF X2 RIGHT, LEFT ANKLE, WRIST, c/s x3, STENT HEART 2017) Respiratory: Yes (SLEEP APNEA-doesn't use CPAP) Sleep Apnea Currently Using CPAP: No Currently Using BIPAP: No Cardiac: Yes (HX LA AND STENT 2017) Heart Attack, Hypertension Neurological: Yes Headaches /Migraines Reproductive Disorders: No Genitourinary: No Gastrointestinal: Yes Gastroesophageal Reflux, Irritable Bowel Musculoskeletal: Yes (BACK SURGERY X2) Arthritis, Chronic Back Pain Endocrine: Yes Hypothyroidsim HEENT: No Cancer: Yes (LEFT ARM SKIN CANCER) Psychosocial: Yes Anxiety, Depression Integumentary: No Blood Disorders: No (CE MARTIN) Family Medical History Family history: Cardiovascular disease 03 FATHER 09 BROTHER 09 BROTHER Family history: Coronary thrombosis 03 FATHER 09 BROTHER 09 BROTHER Family history: Hypertension 03 MOTHER Heart disease 03 FATHER 09 BROTHER 09 BROTHER Myocardial infarction 03 FATHER 09 BROTHER 09 BROTHER Physical Exam Vital Signs Vital Signs - First Documented 09/08/22 10:25 Temp 36.6 Pulse 74 Resp 22 B/P (MAP) 187/87 (120) Pulse Ox 97 (GO CASTRO MD) Vital Signs Capillary Refill : Less Than 3 Seconds (CE MARTIN) Height, Weight, BMI Height: 5'1.00" Weight: 159lbs. 0.0oz. 72.180733od; 30.00 BMI Method: General Appearance: WD/WN, Anxious HEENT: Normal ENT Inspection, Pharynx Normal, Moist Mucous Membranes Neck: Normal Inspection, Non Tender, Supple; No Carotid Bruit Respiratory: Lungs Clear, Normal Breath Sounds, No Accessory Muscle Use, No Respiratory Distress, Other (mild tenderness to palpation) Cardiovascular: Regular Rate, Rhythm, No Murmur, Normal Peripheral Pulses Gastrointestinal: Normal Bowel Sounds, No Organomegaly, No Pulsatile Mass, Non Tender, Soft Extremity: Normal Capillary Refill, Non Tender, No Calf Tenderness Neurologic/Psychiatric: Alert, Oriented x3 Skin: Normal Color, Warm/Dry Lymphatic: No Adenopathy (SAUCE,CE) Progress/Results/Core Measures Results/Orders Lab Results Laboratory Tests Test 09/08/22 10:37 09/08/22 12:08 09/08/22 13:13 Range/Units White Blood Count 15.1 H 4.3-11.0 10^3/uL Red Blood Count 4.56 3.80-5.11 10^6/uL Hemoglobin 13.9 11.5-16.0 g/dL Hematocrit 42 35-52 % Mean Corpuscular Volume 91 80-99 fL Mean Corpuscular Hemoglobin 31 25-34 pg Mean Corpuscular Hemoglobin Concent 33 32-36 g/dL Red Cell Distribution Width 13.3 10.0-14.5 % Platelet Count 258 130-400 10^3/uL Mean Platelet Volume 11.3 9.0-12.2 fL Immature Granulocyte % (Auto) 1 % Neutrophils (%) (Auto) 70 42-75 % Lymphocytes (%) (Auto) 20 12-44 % Monocytes (%) (Auto) 6 0-12 % Eosinophils (%) (Auto) 3 0-10 % Basophils (%) (Auto) 0 0-10 % Neutrophils # (Auto) 10.6 H 1.8-7.8 X 10^3 Lymphocytes # (Auto) 3.0 1.0-4.0 X 10^3 Monocytes # (Auto) 0.9 0.0-1.0 X 10^3 Eosinophils # (Auto) 0.4 H 0.0-0.3 10^3/uL Basophils # (Auto) 0.0 0.0-0.1 10^3/uL Immature Granulocyte # (Auto) 0.2 H 0.0-0.1 10^3/uL Neutrophils % (Manual) 68 % Lymphocytes % (Manual) 23 % Monocytes % (Manual) 9 % Eosinophils % (Manual) 0 % Basophils % (Manual) 0 % Band Neutrophils 0 % Blood Morphology Comment NORMAL Prothrombin Time 13.0 12.2-14.7 SEC INR Comment 0.9 0.8-1.4 Activated Partial Thromboplast Time 24 24-35 SEC Sodium Level 140 135-145 MMOL/L Potassium Level 3.5 L 3.6-5.0 MMOL/L Chloride Level 105 98-107 MMOL/L Carbon Dioxide Level 26 21-32 MMOL/L Anion Gap 9 5-14 MMOL/L Blood Urea Nitrogen 41 H 7-18 MG/DL Creatinine 0.84 0.60-1.30 MG/DL Estimat Glomerular Filtration Rate 72 BUN/Creatinine Ratio 49 Glucose Level 128 H 70-105 MG/DL Calcium Level 9.5 8.5-10.1 MG/DL Corrected Calcium 9.7 8.5-10.1 MG/DL Magnesium Level 2.0 1.6-2.4 MG/DL Total Bilirubin 0.5 0.1-1.0 MG/DL Aspartate Amino Transf (AST/SGOT) 26 5-34 U/L Alanine Aminotransferase (ALT/SGPT) 52 0-55 U/L Alkaline Phosphatase 68 40-136 U/L Troponin I 0.030 H < 0.028 <0.028 NG/ML B-Type Natriuretic Peptide 29.5 <100.0 PG/ML Total Protein 6.6 6.4-8.2 GM/DL Albumin 3.7 3.2-4.5 GM/DL Urine Color YELLOW Urine Clarity CLEAR Urine pH 5.5 5-9 Urine Specific [place] 1.025 H 1.016-1.022 Urine Protein NEGATIVE NEGATIVE Urine Glucose (UA) NEGATIVE NEGATIVE Urine Ketones NEGATIVE NEGATIVE Urine Nitrite NEGATIVE NEGATIVE Urine Bilirubin NEGATIVE NEGATIVE Urine Urobilinogen 0.2 < = 1.0 MG/DL Urine Leukocyte Esterase NEGATIVE NEGATIVE Urine RBC (Auto) NEGATIVE NEGATIVE Urine RBC NONE /HPF Urine WBC RARE /HPF Urine Squamous Epithelial Cells 0-2 /HPF Urine Crystals NONE /LPF Urine Bacteria NEGATIVE /HPF Urine Casts NONE /LPF Urine Mucus NEGATIVE /LPF Urine Culture Indicated NO (GO CASTRO MD) My Orders Orders - GO CASTRO MD Ekg Tracing (09/08/22 10:35) Cbc With Automated Diff (09/08/22 10:59) Magnesium (09/08/22 10:59) Chest 1 View, Ap/Pa Only (09/08/22 10:59) Comprehensive Metabolic Panel (09/08/22 10:59) Protime With Inr (09/08/22 10:59) Partial Thromboplastin Time (09/08/22 10:59) O2 (09/08/22 10:59) Monitor-Rhythm Ecg Trace Only (09/08/22 10:59) Lipid Panel (09/09/22 06:00) Ed Iv/Invasive Line Start (09/08/22 10:59) Troponin I Halina (09/08/22 10:59) Bnp Andrews (09/08/22 10:59) Aspirin Chewable Tablet (Baby Aspirin Ch (09/08/22 11:00) Manual Differential (09/08/22 10:37) Ua Culture If Indicated (09/08/22 11:19) Nitroglycerin 0.4 Mg Btl 25's (Nitrostat (09/08/22 11:30) Nitroglycerin 0.4 Mg Btl 25's (Nitrostat (09/08/22 11:19) Ekg Tracing (09/08/22 12:00) Troponin I Andrews (09/08/22 12:59) (GO CASTRO MD) Medications Given in ED Current Medications Medications Dose Ordered Sig/[place] Route Start Time Stop Time Status Last Admin Dose Admin Aspirin 324 mg ONCE ONCE PO 09/08/22 11:00 09/08/22 11:01 DC 09/08/22 11:04 324 MG Nitroglycerin 1 TAB Q 5 MIN X 3 NEEDED PRN SL 09/08/22 11:30 09/08/22 11:20 0.4 MG (GO CASTRO MD) Vital Signs/I&O 09/08/22 10:25 Temp 36.6 Pulse 74 Resp 22 B/P (MAP) 187/87 (120) Pulse Ox 97 (GO CASTRO MD) Blood Pressure Mean: 120 Admisison Planning May Need Admission (Planning): 11:41 (GO CASTRO MD) Progress Progress Note #1: Time: 12:08 Progress Note Patient seen and examined by me; I have reviewed and agree with the medical student's documentation. Currently pain down to a "1" after nitro. 76yo with a history of cardiac stent 5y ago. States general "weakness" ongoing the last 2 weeks. to the point today she had great difficulty standing up and getting around her house. Saw her PCP [facility] last week and given a rx for augmentin and steroids - no help. Denies associated sx of cough, sob, urine complaints, bloody stools. Currently being "worked up" for diffuse ecchymoses (not on anticoag therapy). On the way to the hospital developed CP "heavy and sharp" radiating to her left arm. A little more SOB than usual. rating pain at a "5". PE: Gen - alert NAD HEENT - NAD CV - RR Chest - Clear bilaterally Abd - soft NT EXT - no edema Skin - diffuse erythematous patches LE and UE bilaterally EKG - unremarkable for acute ST elevation or depression - diffuse Nsstw changes Labs ordered CBC - mild leukocytosis (recently on steroids) o/w unremarkable; Chem - normal; Coags - normal; Trop - slightly elevated (0.030); BNP normal; CXR - unremarkable (read by radiology) PLan - will repeat Trop at 2hr ty. Pending UA review; VSS; not hypoxic or volume overloaded. No evidence of acute CHF; Progress Note #2: Time: 14:10 Progress Note Patient reevaluated after second troponin came back which is neg ative/undetectable. Repeat EKG was also negative for any acute ST segment changes or ectopy. Her vital signs remained stable. She is feeling a little bit better. We had a long discussion about the extensive work-up she had today which was mostly unremarkable. She did have that leukocytosis likely related to her recent course of prednisone. I offered to speak with her primary care physician, Dr. Goldman, I did not do this. Her suspicion was that likely has recently had COVID and this was post-COVID viral syndrome. We did add COVID IgG to her laboratory evaluation today. I explained to the patient and her that this lab will take a couple of days to come back. She is comfortable with going home. I recommended she follow-up early next week with Dr. Goldman's office. We discussed return precautions. All questions have been sought and answered. Patient is stable for discharge. (GO CASTRO MD) Initial ECG Impression Date: Sep 08, 2022 Initial ECG Impression Time: 10:39 Initial ECG Rate: 69 Initial ECG Rhythm: Normal Sinus Initial ECG Intervals [place] 140 QRS 101 QTc 422 Comment NSSTW changes inferior leads; inverted t waves; NSSTW blade changer precordium as well; EKG : EKG Time: 12:25 Rate: 60 Rhythm: Normal Sinus ECG Comparisson: Unchanged (GO CASTRO MD) Diagnostic Imaging Diagonstic Imaging: Xray Plain Films/CT/US/NM/MRI: chest Comments [facility] [place] NAME: JUICE HARRISON [facility] REC#: [id number] PT STATUS: REG ER : 1945 PHYSICIAN: GO CASTRO MD ADMIT DATE: 09/08/22/ER Draft Date of Exam:09/08/22 CHEST 1 VIEW, AP/PA ONLY EXAMINATION: Chest 1 view HISTORY: Chest pain. COMPARISON: 11/04/2013. FINDINGS: The lung volumes are normal. No focal consolidation is seen. No large pleural effusion or pneumothorax is seen. The cardiomediastinal silhouette is normal in size and contour. There is calcified aortic atherosclerotic plaque. No acute osseous abnormality is seen. IMPRESSION: 1. No acute pleuroparenchymal process. Dictated on workstation # [id number] Dict: 09/08/22 1113 Trans: 09/08/22 1120 [id number] Interpreted by: BOBBY OLMSTEAD DO Electronically signed by: (GO CASTRO MD) Departure Impression Primary Impression: Chest pain Qualified Codes: R07.9 - Chest pain, unspecified Additional Impression: Weakness generalized Disposition: 01 HOME, SELF-CARE Condition: Stable Departure-Patient Inst. Decision time for Depature: 14:15 (GO CASTRO MD) Referrals: UNIQUE GOLDMAN MD (PCP/Family) Primary Care Physician Patient Instructions: Chest Pain That Is Not Caused by the Heart (DC), Weakness ED Add. Discharge Instructions: Drink plenty of fluids to continue to stay well-hydrated. To be sure and have good nutrition to help your immune system. Continue your daily prescribed medications as instructed by Dr. Goldman's office. We have sent a test for COVID antibodies which will take a couple of days to come back. This result will be viewable by Dr. Goldman. Please call her office on Monday for a follow-up appointment next week. In the meantime if you develop further chest pain especially associated with shortness of breath, sweating, nausea or change in location of the pain or high fever, productive cough please come back to the emergency department for reevaluation Verification and Attestation of Medical Student E/M Service A medical student performed and documented this service in my presence. I reviewed and verified all information documented by the medical student and made modifications to such information, when appropriate. I personally performed the physical exam and medical decision making. Go Castro, Sep 08, 2022,12:14 (GO CASTRO MD) Copy Copies To 1: UNIQUE GOLDMAN MD, DAULTON Sep 08, 2022 11:04 GO CASTRO MD Sep 08, 2022 11:43
[2022-09-08 11:12] LABS: BASOPHILS % (AUTO) 0 % (0-10); EOSINOPHILS # (AUTO) 0.4 10^3/uL (0.0-0.3); EOSINOPHILS % (AUTO) 3 % (0-10); HEMATOCRIT 42 % (35-52); HEMOGLOBIN 13.9 g/dL (11.5-16.0); LYMPHOCYTES % (AUTO) 20 % (12-44); MEAN CORPUSCULAR HEMOGLOBIN 31 pg (25-34); MEAN CORPUSCULAR HGB CONC 33 g/dL (32-36); MEAN CORPUSCULAR VOLUME 91 fL (80-99); MEAN PLATELET VOLUME 11.3 fL (9.0-12.2); MONOCYTES # (AUTO) 0.9 X 10^3 (0.0-1.0); MONOCYTES % (AUTO) 6 % (0-12); NEUTROPHILS # (AUTO) 10.6 X 10^3 (1.8-7.8); NEUTROPHILS % (AUTO) 70 % (42-75); PLATELET COUNT 258 10^3/uL (130-400); WHITE BLOOD COUNT 15.1 10^3/uL (4.3-11.0)
[2022-09-08 11:14] LABS: ALBUMIN 3.7 GM/DL (3.2-4.5); INR 0.9 (0.8-1.4); POTASSIUM 3.5 MMOL/L (3.6-5.0)
[2022-09-08 11:15] LABS: CALCIUM 9.5 MG/DL (8.5-10.1)
[2022-09-08 11:16] LABS: TOTAL PROTEIN 6.6 GM/DL (6.4-8.2)
[2022-09-08 11:18] LABS: BILIRUBIN,TOTAL 0.5 MG/DL (0.1-1.0)
[2022-09-08] MEDS ORDERED: NITROGLYCERIN 0.4 MG SL TABS BTL 25'S SL ONE (11:19)
[2022-09-08 11:20] LABS: CREATININE SERUM 0.84 MG/DL (0.60-1.30)
--- NOTE | 2022-09-08 11:21 | Diagnostic Imaging Report ---
EXAMINATION: Chest 1 view HISTORY: Chest pain. COMPARISON: 11/04/2013. FINDINGS: The lung volumes are normal. No focal consolidation is seen. No large pleural effusion or pneumothorax is seen. The cardiomediastinal silhouette is normal in size and contour. There is calcified aortic atherosclerotic plaque. No acute osseous abnormality is seen. IMPRESSION: 1. No acute pleuroparenchymal process. Dictated by: Dictated on workstation # [id number]
[2022-09-08] MEDS ORDERED: NITROGLYCERIN 0.4 MG SL TABS BTL 25'S SL PRN (11:30)
[2022-09-08 12:09] LABS: BAND NEUTROPHILS 0 %; BASOPHILS % (MANUAL) 0 %; EOSINOPHILS % (MANUAL) 0 %; LYMPHOCYTES % (MANUAL) 23 %; MONOCYTES % (MANUAL) 9 %; NEUTROPHILS % (MANUAL) 68 %; RBC MORPH NORMAL
[2022-09-08 12:21] LABS: BILIRUBIN,URINE NEGATIVE (NEGATIVE); CLARITY,URINE CLEAR; COLOR,URINE YELLOW; GLUCOSE, URINE (UA) NEGATIVE (NEGATIVE); KETONES,URINE NEGATIVE (NEGATIVE); LEUKOCYTE ESTERASE ,URINE NEGATIVE (NEGATIVE); NITRITE,URINE NEGATIVE (NEGATIVE); PH,URINE 5.5 (5-9); PROTEIN,URINE NEGATIVE (NEGATIVE)
[2022-09-08 12:31] LABS: BACTERIA,URINE NEGATIVE /HPF; SQUAMOUS EPITHELIAL CELL,UR 0-2 /HPF; WBC,URINE RARE /HPF
== END 2022-09-08 14:22 | disposition home or self-care (01) ==
LOC: EDUNIT# 10:20 → ER 10:22
DX: R07.9 Chest pain, unspecified (principal); R53.1 Weakness; R06.02 Shortness of breath; D72.829 Elevated white blood cell count, unspecified; L53.9 Erythematous condition, unspecified; R58 Hemorrhage, not elsewhere classified
CPT/HCPCS: 36415; 71045; 80053; 81000; 83735; 83880; 84484; 85007; 85027; 85610; 85730; 93005

== ENCOUNTER 2022-11-17 10:20 | Emergency (ER) | payer MEDICARE ==
[~2022-11-17] VITALS: Ht 154.9 cm; Wt 70.3 kg
--- NOTE | 2022-11-17 11:11 | ED Upper Extremity ---
General Chief Complaint: Upper Extremity Stated Complaint: RIGHT UPPER EXTREMITY Nursing Triage Note: PT AMB TO [facility] WITH CC OF RIGHT SHOULDER AND ARM PAIN AFTER A FALL 4 WEEKS AGO. PT STATES THAT THE PAIN HAS NOT IMPROVED AND SHE CAN NOT GET INTO DR GASCA UNTIL NEXT MONDAY. Source: patient Exam Limitations: no limitations History of Present Illness Date Seen by Provider: Nov 17, 2022 Time Seen by Provider: 11:03 Initial Comments Patient is a 76-year-old female presents ED with right shoulder, right elbow and right wrist pain. Patient fell 3 weeks ago. She states she tripped and fell hitting the ground. She states this was mechanical fall. She landed directly on her right arm. She did have some pain after the fall but was able to move her arm with limited range of motion. She states she has had continue worsening pain especially over the past week with continued worsening range of motion. Sharp pain to the right shoulder, right elbow, right wrist. Has been taking hydrocodone. She denies hitting her head or loss of consciousness. Allergies and Home Medications Allergies Coded Allergies: No Known Drug Allergies (Unverified , 07/04/22) Patient Home Medication List Home Medication List Reviewed: Yes ALPRAZolam (Xanax Tablet) 0.25 Mg Tablet, 0.25 MG PO TID PRN for ANXIETY, (Reported) Entered as Reported by: DAYNE CARDOZO on 02/22/19 1217 Citalopram Hydrobromide (Citalopram HBr) 20 Mg Tablet, 20 MG PO DAILY, (Reported) Entered as Reported by: DAYNE CARDOZO on 06/29/21 1229 Clonidine (Clonidine TTS 1 Patch) 1 Each Patch.tdwk, 1 PATCH TD Q7D, (Reported) Entered as Reported by: DAYNE CARDOZO on 06/29/21 1229 Clonidine HCl (Clonidine HCl) Unknown Strength Tablet, Unknown Dose PO, (Reported) Entered as Reported by: Stephanie Zamorano on 07/05/22 1620 Diltiazem HCl (Cartia Xt) 180 Mg Cap.er.24h, 180 MG PO DAILY, (Reported) Entered as Reported by: DAYNE CARDOZO on 06/29/21 1229 Esomeprazole Magnesium (Esomeprazole Magnesium) 40 Mg Capsule.dr, 40 MG PO DAILY, (Reported) Entered as Reported by: DAYNE CARDOZO on 02/22/191216 Hydrochlorothiazide (Hydrochlorothiazide) 25 Mg Tablet, 25 MG PO DAILY, (Reported) Entered as Reported by: DAYNE CARDOZO on 02/22/191216 Hydrocodone Bit/Acetaminophen (HYDROcodone/APAP 10/325 TABLET) 1 Each Tablet, 1- 2 TAB PO Q6H PRN for PAIN-MODERATE, (Reported) Entered as Reported by: DAYNE CARDOZO on 02/22/191216 Levothyroxine Sodium (Levothyroxine Sodium) 112 Mcg Tablet, 112 MCG PO DAILY, (Reported) Entered as Reported by: DAYNE CARDOZO on 02/22/191216 Nebivolol HCl (Bystolic) 20 Mg Tablet, 20 MG PO DAILY, (Reported) Entered as Reported by: DAYNE CARDOZO on 02/22/191216 Nebivolol HCl (Bystolic) 5 Mg Tablet, 5 MG PO DAILY, (Reported) Entered as Reported by: SULAIMAN ARMIJO on 07/04/22 1631 Piroxicam (Piroxicam) 20 Mg Capsule, 20 MG PO DAILY, (Reported) Entered as Reported by: DAYNE CARDOZO on 02/22/191216 Trazodone HCl (Trazodone HCl) 50 Mg Tablet, 100 MG PO HS, (Reported) Entered as Reported by: DAYNE CARDOZO on 02/22/191216 Review of Systems Constitutional: No chills, No diaphoresis, No malaise, No weakness EENTM: No ear pain, No blurred vision Respiratory: No cough Cardiovascular: No chest pain Gastrointestinal: No abdominal pain, No diarrhea, No nausea, No vomiting Genitourinary: No decreased output, No discharge Musculoskeletal: No back pain; joint pain, joint swelling, muscle pain Skin: No change in color, No change in hair/nails All Other Systems Reviewed Negative Unless Noted: Yes Past Psttxqu-Ivsufe-Kbrjnu Hx Immunizations Up To Date First/Initial COVID19 Vaccinat: 2020 Second COVID19 Vaccination Kamaljit: 2021 Third COVID19 Vaccination Date: 2021 Seasonal Allergies Seasonal Allergies: No Past Medical History Surgery/Hospitalization HX: HEART STENT Surgeries: Yes (R TKR, ROTATOR CUFF X2 RIGHT, LEFT ANKLE, WRIST, c/s x3, STENT HEART 2017) Respiratory: Yes (SLEEP APNEA-doesn't use CPAP) Sleep Apnea Currently Using CPAP: No Currently Using BIPAP: No Cardiac: Yes (HX NV AND STENT 2017) Heart Attack, Hypertension Neurological: Yes Headaches /Migraines Reproductive Disorders: No Genitourinary: No Gastrointestinal: Yes Gastroesophageal Reflux, Irritable Bowel Musculoskeletal: Yes (BACK SURGERY X2) Arthritis, Chronic Back Pain Endocrine: Yes Hypothyroidsim HEENT: No Cancer: Yes (LEFT ARM SKIN CANCER) Psychosocial: Yes Anxiety, Depression Integumentary: No Blood Disorders: No Family Medical History Family history: Cardiovascular disease 03 FATHER 09 BROTHER 09 BROTHER Family history: Coronary thrombosis 03 FATHER 09 BROTHER 09 BROTHER Family history: Hypertension 03 MOTHER Heart disease 03 FATHER 09 BROTHER 09 BROTHER Myocardial infarction 03 FATHER 09 BROTHER 09 BROTHER Physical Exam Vital Signs Vital Signs - First Documented 11/17/22 10:59 Temp 35.2 Pulse 66 B/P (MAP) 118/65 (82) Pulse Ox 93 O2 Delivery Room Air Capillary Refill : Height, Weight, BMI Height: 5'1.00" Weight: 159lbs. 0.0oz. [id number]; 29.00 BMI Method: General Appearance: WD/WN, no apparent distress HEENT: PERRL/EOMI, normal ENT inspection, TMs normal, pharynx normal Neck: non-tender, full range of motion, supple, normal inspection Cardiovascular: regular rate, rhythm, no edema, no gallop, no JVD Respiratory: chest non-tender, lungs clear, normal breath sounds, no respiratory distress, no accessory muscle use Gastrointestinal: normal bowel sounds, non tender, soft, no organomegaly Shoulder: bone tenderness (Right proximal humeral), limited ROM, soft tissue tenderness (Right anterior shoulder tenderness, no swelling, or bruising. Distal clavicle tenderness.) Elbow/Forearm: Right, bone tenderness, pain (Right olecranon. No swelling, or bruising. Limited active and passive range of motion), soft tissue tenderness Wrist: Yes normal ROM, Yes pain (Tenderness to the distal radius. 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 Was able to move her arm to some extent but this pain progressed and got worse. She is tender to the right shoulder, elbow and wrist. 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 History of rotator cuff repair twice in the past. Due to her current complaint x-rays were ordered of the shoulder, elbow and wrist to rule out acute fracture. X-ray of the right shoulder was negative for acute fracture but did note osteoarthritis. X-ray of the right elbow and wrist were negative for acute fracture. Discussed all results with patient. Discussed potential etiologies such as rotator cuff injury, muscle contusion, bone contusion, nerve injury secondary to the fall. 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 She does have some limited passive and active range of motion of the upper extremity with pain. I do think physical therapy would be a better fit at this time for patient. Further imaging may be needed. Recommend continue with pain medication at home. May continue with heat. Provided stretching and strength exercises. Discussed following up with orthopedic for further evaluation. Follow-up with your PCP to discuss physical therapy. Impression Primary Impression: Right shoulder pain Disposition: 01 HOME, SELF-CARE Condition: Stable Departure-Patient Inst. Decision time for Depature: 11:49 Referrals: UNIQUE GASCA MD (PCP/Family) Primary Care Physician RUBY GOODE MD Patient Instructions: Shoulder Pain ED Add. Discharge Instructions: recommend follow-up with orthopedic for further evaluation. Continue with range of motion exercise strength exercises. Continue with pain medication All discharge instructions reviewed with patient and/or family. Voiced understanding. EMILEE RANDOLPH Nov 17, 2022 11:11
--- NOTE | 2022-11-17 11:34 | Diagnostic Imaging Report ---
EXAMINATION: Right elbow radiographs, 3 views. COMPARISON: None. HISTORY: 76-year-old female, fall. Right elbow pain. FINDINGS: There is mild degenerative type enthesopathy at the proximal common extensor tendon origin. There is no identified acute fracture. There is no elbow joint effusion. The elbow is not dislocated. Joint spaces are well preserved. IMPRESSION: 1. No acute bony abnormality of the right elbow. Dictated by: Dictated on workstation # [id number]
--- NOTE | 2022-11-17 11:35 | Diagnostic Imaging Report ---
INDICATION: Fall, pain FINDINGS: 3 view right wrist performed. No fracture, dislocation or acute bone or joint pathology. There is arthritic changes most severe at the 1st carpometacarpal joint. IMPRESSION: Degenerative changes but no fracture or acute injury apparent. Dictated by: Dictated on workstation # [id number]
--- NOTE | 2022-11-17 11:39 | Diagnostic Imaging Report ---
EXAMINATION: Right shoulder radiographs, 3 views. COMPARISON: None. HISTORY: 76-year-old female, fall. Right shoulder pain. FINDINGS: The humeral head is normally positioned relative to the glenoid. There is moderate glenohumeral joint space loss. There are prominent osteophytes extending off the inferior aspect of the humeral head. There are no prominent acromioclavicular degenerative changes. There is no identified acute fracture. IMPRESSION: 1. At least moderate glenohumeral osteoarthritis. 2. Intact acromioclavicular joint. 3. No identified acute fracture or abnormal bone alignment. Dictated by: Dictated on workstation # [id number]
[2022-11-17 11:55] VITALS: BP 111/67
== END 2022-11-17 11:55 | disposition home or self-care (01) ==
LOC: EDUNIT# 10:20 → ER 10:22
DX: M19.011 Primary osteoarthritis, right shoulder (principal); M25.521 Pain in right elbow; M25.531 Pain in right wrist; W01.198A Fall on same level from slipping, tripping and stumbling with subsequent striking against other object, initial encounter
CPT/HCPCS: 73030; 73080; 73110

== ENCOUNTER → 2023-03-07 | Outpatient (CLI) | payer MEDICARE ==
[~2023-03-07] MED LIST changes: -LOSA100T57 PO; +LOSA100T58 PO
--- NOTE | 2023-03-07 17:53 | Diagnostic Imaging Report ---
Indication: Routine screening. Comparison is made with prior mammograms from 12/07/2020 and 12/01/2016. 2-D and 3-D bilateral screening mammography was performed with CAD. Scattered fibroglandular densities are identified bilaterally. The parenchymal pattern appears to be stable. There are scattered benign calcifications in both breasts. No dominant mass or malignant-appearing microcalcifications are seen. The axillae are unremarkable. IMPRESSION: BI-RADS Category 2 No mammographic features suspicious for malignancy are identified. ACR BI-RADS Category 2: Benign findings. Result letter will be mailed to the patient. Note: At least 10% of breast cancer is not imaged by mammography. Dictated by: Dictated on workstation # [id number]
== END ==
LOC: RAD 10:11
PROVIDERS: ATTEND Nurse Practitioner Family
DX: Z12.31 Encounter for screening mammogram for malignant neoplasm of breast (principal)
CPT/HCPCS: 77063; 77067

== ENCOUNTER → 2023-03-30 | Outpatient (CLI) | payer MEDICARE ==
--- NOTE | 2023-03-30 16:10 | Diagnostic Imaging Report ---
Clinical indication: Patient fell and hit back of head. Patient has platelet disorder. Exam: Axial CT scan of the brain without IV contrast with coronal and sagittal reformatted images. Auto Exposure Controls were utilized during the CT exam to meet ALARA standards for radiation dose reduction. Comparison: None Findings: There is no evidence of acute cerebral infarct, intracranial hemorrhage or gross mass effect. The brain parenchymal volume appears appropriate for patient's age. There is normal shanks-white matter distinction. There is no significant midline shift or herniation. There is no evidence of hydrocephalus. The basal cisterns are unremarkable. The skull, extracranial soft tissue and orbits are unremarkable. The paranasal sinuses are unremarkable. Temporal bones show no significant abnormality. Impression: There is no evidence of acute intracranial process. There is no skull fracture. Dictated by: Dictated on workstation # [id number]
== END ==
LOC: RAD 15:14
PROVIDERS: ATTEND Nurse Practitioner Family
DX: S09.90XA Unspecified injury of head, initial encounter (principal); W19.XXXA Unspecified fall, initial encounter
CPT/HCPCS: 70450

== ENCOUNTER → 2023-04-26 | Outpatient (CLI) | payer MEDICARE ==
--- NOTE | 2023-04-26 13:22 | Diagnostic Imaging Report ---
INDICATION: Fall. Trauma to the head. Neck pain. COMPARISON: 04/19/2022 FINDINGS: Frontal, lateral, and odontoid views of the cervical spine were obtained. Cervical spine is seen down to the C7-T1 level on the lateral view. AP static alignment is preserved. There is no significant anterolisthesis or retrolisthesis. There is no evidence of jumped facets. Vertebral body heights are maintained. No acute fracture. Moderate multilevel degenerative changes are noted, greatest at the C6-C7 level where there is intervertebral disc height loss with anterior and posterior endplate osteophyte formation. There is also multilevel facet arthropathy, left greater than right. Included portions lung apices are clear. IMPRESSION: 1. No acute fracture or dislocation cervical spine. 2. Moderate multilevel degenerative changes. Dictated by: Dictated on workstation # [id number]
== END ==
LOC: RAD 11:27
PROVIDERS: ATTEND Nurse Practitioner Family
DX: M50.30 Other cervical disc degeneration, unspecified cervical region (principal)
CPT/HCPCS: 72040

== ENCOUNTER → 2023-07-17 | Outpatient (CLI) | payer MEDICARE ==
[~2023-07-17] MED LIST changes: +NEBI5TAB2 PO
--- NOTE | 2023-07-17 15:50 | Diagnostic Imaging Report ---
INDICATION: Palpable lump in the left breast. COMPARISON: Correlation is made with the prior mammograms of 03/07/2023 and 12/07/2020. TECHNIQUE: Unilateral left 2D and 3D diagnostic mammography was performed with CAD. FINDINGS: Scattered fibroglandular densities in the left breast are noted. A BB marker was placed at the area of palpable abnormality in the upper and outer aspect of the left breast. No underlying abnormality is identified. No malignant-appearing microcalcifications are seen. There are benign calcifications. The left axilla is unremarkable. IMPRESSION: No mammographic features suspicious for malignancy are identified. Even so, directed sonographic interrogation of the area of palpable abnormality in the upper outer left breast is recommended and will be performed today. Dictated by: Dictated on workstation # [id number]
--- NOTE | 2023-07-17 15:53 | Diagnostic Imaging Report ---
INDICATION: Palpable lump in the left breast. COMPARISON: Correlation is made with the diagnostic mammogram from earlier this same day. FINDINGS: Sonographic interrogation of the area of palpable abnormality in the upper left breast was performed. There is an ovoid, hyperechoic nodule just below the skin surface at the area of palpable abnormality which corresponds to the 12 o'clock location 6-7 cm from the nipple. This measures 1.2 x 0.6 x 1.4 cm. This has the appearance of a lipoma. No other masses are identified. No internal vascularity is detected. IMPRESSION: Features are most suggestive of a lipoma at the 12 o'clock location of the left breast corresponding to the palpable abnormality. The patient may return to routine annual screening mammography. ACR BI-RADS Category 2: Benign findings. Result letter will be mailed to the patient. Note: At least 10% of breast cancer is not imaged by mammography. Dictated by: Dictated on workstation # [id number]
== END ==
LOC: RAD 12:55
PROVIDERS: ATTEND Nurse Practitioner Family
DX: N63.20 Unspecified lump in the left breast, unspecified quadrant (principal)
CPT/HCPCS: 76642; 77065; G0279